=== PATIENT | female | born 1955 | race Caucasian/White ===

== ENCOUNTER 2017-12-18 01:20 | Inpatient (IN) | payer MEDICARE, SELFPAY ==
[2017-12-18] VITALS (30 sets, daily range): BP systolic 87–175; BP diastolic 13–103; PULSE 54–98; RESP 13–18; TEMP 35.8–36.8; O2SAT 18–97; BMI 32.1; BMI 30.6
--- NOTE | 2017-12-18 01:37 | RAD_ITS ---
STUDY: X-RAY CHEST REASON FOR EXAM: Female, 62 years old. Chest pain and tingling in both arms and back. TECHNIQUE: Single AP portable view of the chest. COMPARISON: 06/17/2017. FINDINGS: The lungs are clear and expanded. There is no demonstrated pleural abnormality. The patient is markedly rotated. Normal size heart. Normal mediastinum and dru. Normal visualized pulmonary arteries. There is atherosclerotic tortuosity of the aortic arch and descending thoracic aorta. The bony structures are unchanged. There is no demonstrated abnormality of the visualized soft tissue structures of the upper abdomen. RAD/Chest 1 View (Portable) IMPRESSION: No active pulmonary disease. Electronically Signed: Raghavendra Agustin MD at 2:31 EDT Tel , Service support ,
--- NOTE | 2017-12-18 01:37 | EKG12_ITS ---
Test Reason : CP Blood Pressure : / mmHG Vent. Rate : 087 BPM Atrial Rate : 087 BPM P-R Int : 140 ms QRS Dur : 102 ms QT Int : 368 ms P-R-T Axes : 054 034 063 degrees QTc Int : 442 ms Sinus rhythm with occasional Premature ventricular complexes T wave abnormality, consider anterior ischemia Abnormal ECG Confirmed by CECI MARTINEZ, GEO ([id number]), editor farm journal LOPEZ VERA ([id number]) on 12/22/2017 2:24:35 PM Referred By: JOLENE Confirmed By:GEO ONRELAS MD
[2017-12-18 01:52] LABS: Absolute Lymphocyte Count 3.15 X10^3/ul (0.83-4.51); Absolute Neutrophil Count 4.1 X10^3/uL (2.0-7.7); Basophil# 0.04 X10^3/uL; Basophil% 0.5 % (0-1); Eosinophils% 2.5 % (0-5); Hematocrit 38.5 % (37-47); Hemoglobin 13.2 g/dl (12.0-15.0); Lymphocyte # 3.15 X10^3/ul (4.0); Lymphocyte % 39.1 % (19-41); Mean Corp Hgb Conc 34.3 g/gl (32-36); Mean Corpuscular Hgb 32.4 pg (27.0-32.0); Mean Corpuscular Volume 94.6 fL (81-99); Mean Platelet Vol. 8.9 fl (6.2-12.0); Monocyte# 0.56 X10^3/uL; Monocyte% 6.9 % (0-10); Neutrophil % 50.9 % (47-70); POSITIVE COUNT NO; POSITIVE DIFFERENTIAL NO; POSITIVE MORPHOLOGY NO; Platelet Count 229 K/mm3 (150-450); RBC Distribution Width CV 12.9 % (11.6-14.6); RBC Distribution Width SD 43.3 fl (35.1-43.9); Red Blood Count 4.07 M/mm3 (4.2-5.4); White Blood Count 8.1 K/mm3 (4.4-11.0)
--- NOTE | 2017-12-18 02:05 | ED.DCSUM_ITS ---
- ER Visit Summary Date of Service: 12/18/17 Chief Complaint: Chest pain History of Present Illness: The patient is a 62 F sudden chest and upper back pain 1 hour prior to arrival. Patient states she was awake. Pain down both arms. Nausea while in EMS. Status post aspirin nitroglycerin at home ?1 additional given by EMS. Denies any improvement from it. Pain is 7 8 out of 10 with which he states pulling sensation.. States had a heart cath a couple years ago with no intervention. Followed by Dr. Best. States the arm pains are new. Tobacco history. Mother had PR at age 36. Denies diabetes. History of hypertension hypercholesterolemia. No PE risk factors. Denies any dyspnea or diaphoresis. Physical Examination: General: Alert and oriented ?3, no acute distress HEENT: Normocephalic, atraumatic. Moist mucosa membranes Neck: supple, nontender. Cardiovascular: Regular rate and rhythm, no murmurs Respiratory: Normal breath sounds, symmetric, no distress Abdomen: Soft, nontender, nondistended Extremities: Nontender, no edema, pulses intact ?4 Neuro: no focal neurological deficits. Test Results: EKG normal sinus rate of 87, no ST changes T-wave inversions anterior leads of V1 to V3. Chest x-ray negative. Troponin negative. Emergency Department Course and Treatment: Patient treated with additional nitro , states symptoms are improving. Nitro paste and morphine given for symptom control with improvement. Cardiac workup negative. EKG notes chronic changes with T-wave inversions on her previous EKGs. Heart scores a 5. CELESTE scores of 3. I did review records noted she had a heart cath November 2015, had a mild disease of the diagonal branch. She had abnormal nuclear stress test that led to this. Discussed with hospitalist, Dr. Mcginnis for admission for cardiac rule out. Treatment Plan: [] Disposition: Admission Impression: Acute chest pain This note was generated with [employer]amis[employer] dictation software. It may contain incorrect words, spelling, and punctuation that were not noted in review of the chart prior to signing ED Disposition - Plan for ED Patient: Disposition: Acute Care Hospital [facility] Chief Complaint: Chest Pain Diagnosis: Acute chest pain
[2017-12-18 02:09] LABS: Anion Gap 4 (5-15); BUN 16 mg/dL (7-18); Calcium,Total 8.6 mg/dL (8.5-10.1); Chloride 110 mmol/L (98-107); Creatinine, Serum 0.76 mg/dL (0.55-1.02); EST Glomerular Filtration Rate 82 mL/min (>60); Est Glom Filt Rate - Afr Amer 99 mL/min (>60); Estimated Creatinine Clearance 69.95 ml/min; Glucose 122 mg/dL (74-106); Potassium 3.4 mmol/L (3.5-5.1); Sodium Level 144 mmol/L (136-145)
[2017-12-18] MEDS: Nitroglycerin Oint 1 INCH PACKET TRANSDERM. (02:33)
[2017-12-18] MEDS: Morphine 4 MG/ML Syringe IV (02:36)
--- NOTE | 2017-12-18 03:15 | PCM.HP.STD ---
Problem List (1) Cardiomyopathy Status: Chronic Qualifiers: Cardiomyopathy type: unspecified Qualified Code(s): I42.9 - Cardiomyopathy, unspecified (2) Hyperlipidemia Status: Acute Qualifiers: Hyperlipidemia type: unspecified Qualified Code(s): E78.5 - Hyperlipidemia, unspecified (3) Atherosclerotic heart disease of [place] coronary artery without angina pectoris Status: Chronic Qualifiers: [place] vs. transplanted heart: unspecified whether [place] or transplanted heart Qualified Code(s): I25.10 - Atherosclerotic heart disease of [place] coronary artery without angina pectoris Comment: Mild (4) Hypertension Status: Chronic Qualifiers: Hypertension type: essential hypertension Qualified Code(s): I10 - Essential (primary) hypertension (5) COPD (chronic obstructive pulmonary disease) Status: Acute Qualifiers: COPD type: unspecified COPD Qualified Code(s): J44.9 - Chronic obstructive pulmonary disease, unspecified (6) Tobacco use Status: Chronic (7) EVELYN (obstructive sleep apnea) Status: Chronic (8) Obesity (BMI 30.0-34.9) Status: Chronic (9) TIA (transient ischemic attack) Status: Chronic Qualifiers: Transient cerebral ischemia type: unspecified Qualified Code(s): G45.9 - Transient cerebral ischemic attack, unspecified (10) GERD (gastroesophageal reflux disease) Status: Acute Qualifiers: Esophagitis presence: esophagitis presence not specified Qualified Code(s): K21.9 - Gastro-esophageal reflux disease without esophagitis (11) Anxiety and depression Status: Chronic (12) Chest pain Status: Acute Qualifiers: Chest pain type: unspecified Qualified Code(s): R07.9 - Chest pain, unspecified History of Present Illness Date of Admission: 12/18/17 Chief Complaint: Chest pain The patient is a 62 y/o M w/ PMHx: Obesity, Tobacco use, HTN, HLD, GERD, Chronic COPD, Cardiomyopathy Unclear Type, CAD, Hx TIA, EVELYN, Anxiety and Depression, GERD, Chronic back pain who presents to the [facility] ED on 12/18/17 with onset of left upper back pain which then radiated toward her midsternal chest region and into BL UE as well as her neck, noting her arms felt heavy with associated nausea without emesis, no diaphoresis, dyspnea or emesis concurrently. In the ED work-up included AF, HR 70-80, BP 175/13-->138/103, 97% on 2L NC, unremarkable CBC, BMP w/ K 3.4, Chl 110, glucose 122, trop < 0.02, EKG w/ chronic T wave changes, similar to prior, CXR with chronic changes. In the ED patient administered ASA. NG SL, nitrobid, morphine with improvement of her chest discomfort. Past Medical History Past Medical History (Chronic Problems): Chronic Problems (Last Updated 11/16/17 @ 11:07 by Delilah Benavides) Tobacco use (Chronic) EVELYN (obstructive sleep apnea) (Chronic) Obesity (BMI 30.0-34.9) (Chronic) TIA (transient ischemic attack) (Chronic) Anxiety and depression (Chronic) Cardiomyopathy (Chronic) Atherosclerotic heart disease of [place] coronary artery without angina pectoris (Chronic) Mild Hypertension (Chronic) Allergies No Known Allergies Allergy (Verified 12/18/17 01:21) Home Medications: Ambulatory Orders Medication Instructions Recorded Lisinopril [Zestril] 10 mg PO BID 11/18/15 Aspirin [Aspirin, Baby] 81 mg PO DAILY@0800 #30 tab.chew 11/19/15 Venlafaxine XR [Effexor Xr] 150 mg PO DAILY 01/31/16 Atorvastatin Calcium [Lipitor] 10 mg PO QHS 10/03/16 Esomeprazole Mag Trihydrate 40 mg PO DAILY 10/03/16 [Nexium] Oxycodone HCl/Acetaminophen 1 tab PO BID PRN 10/03/16 [Percocet 5/325] Ondansetron HCl [Zofran] 4 mg PO 4X/DAY PRN PRN #14 tab 06/17/17 carvedilol 6.25 mg tablet 6.25 mg PO BID 11/16/17 lorazepam 1 mg tablet 1 mg PO BID tab 11/16/17 venlafaxine 37.5 mg tablet 37.5 mg PO QDAY tab 11/16/17 Morphine Sulfate/Naltrexone 1 cap PO DAILY 12/18/17 [Embeda ER 60-2.4 mg Capsule] Surgical History: appendectomy, hysterectomy Psychiatric History: Anxiety, Depression 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 Tobacco Use: Cigarettes Alcohol: None Drugs: None - *Family History Maternal History Items: Heart Disease Paternal History Items: No pertinent history Review of Systems Constitutional: Reports: Fatigue. Denies: Chills, Fever, Weight Change HEENT: Denies: Head Aches, Sinus Congestion, Sinus Drainage Cardiovascular: Reports: Chest Pain, Chest Pressure, Heaviness. Denies: Palpitations Respiratory: Denies: Cough, Shortness of breath at rest, Sputum production Gastrointestinal: Denies: Abdominal Pain, Nausea, Vomiting Genitourinary: Denies: Dysuria Musculoskeletal: Reports: Arm Pain, Back Pain. Denies: Joint Pain, Joint Tenderness Skin: Denies: Rash, Wounds Neurological: Denies: Numbness, Tingling, Focal weakness Psychiatric: Reports: Anxiety, Depression. Denies: Homicidal Ideations, Suicidal Ideations Hematologic/ Lymphatic: Denies: Easy Bruising, Easy Bleeding VTE Information - Inpt Only VTE Present on Admission: No VTE Mechan Device Prophylaxis: SCD's VTE Pharm Prophylaxis ordered?: Yes Patient Problems: Active and Suspected Problems (Last Updated 11/16/17 @ 11:07 by Delilah Benavides) COPD (chronic obstructive pulmonary disease) (Acute) GERD (gastroesophageal reflux disease) (Acute) Chest pain (Acute) Subjective: Seated upright in the ED bed, NAD, notes chest discomfort has improved since initial presentation. Objective: Physical Examination: General: awake, alert, oriented x 3 and cooperative, seated upright in the ED bed in no apparent distress. Skin: normal color, turgor, no icterus, cyanosis. HEENT: AT/NC, EOMI, PERRLA, mildly dry MM, no carotid bruits or JVD noted. Lungs: Diminished BS, > bases, mild effort, occasional end expiratory wheeze noted. Heart: Regular rate and rhythm; no gallop, rub audible. Abdomen: soft, obese, NTTP, ND, normal BS, no HSM. Extremities: no cyanosis, clubbing, or edema. Neurological: patient awake, alert, oriented x 3; cognitive function intact; pupils equally reactive to light and accomodation; cranial nerves II-XII grossly normal, moving all 4 extremities, no focal deficits, strength moderately globally decreased secondary to acute presentation. Psychiatric: affect appears fatigued, no acute evidence of depressive or anxiety feelings. - Physical Exam Vital Signs Temp Pulse Resp BP Pulse Ox 96.4 F L 71 16 138/103 H 94 12/18/17 01:21 12/18/17 03:03 12/18/17 03:03 12/18/17 03:03 12/18/17 03:03 Oxygen Flow Rate (L/min) 2 Oxygen Delivery Method Room Air Weight: 193 lb 1.999 oz Body Mass Index (BMI) 32.1 Finger Stick Blood Glucose 76 Laboratory Tests Past 24 Hrs 12/18/17 12/18/17 01:46 01:46 WBC 8.1 RBC 4.07 L Hgb 13.2 Hct 38.5 MCV 94.6 MCH 32.4 H MCHC 34.3 RDW 12.9 RDW Differential 43.3 Plt Count 229 MPV 8.9 Immature Gran % (Auto) 0.100 Neut % (Auto) 50.9 Lymph % (Auto) 39.1 [place] % (Auto) 6.9 Eos % (Auto) 2.5 Baso % (Auto) 0.5 Absolute Neuts (auto) 4.1 Absolute Lymphs (auto) 3.15 Total Counted Not Reportable Sodium 144 Potassium 3.4 L Chloride 110 H Carbon Dioxide 30.0 Anion Gap 4 L BUN 16 Creatinine 0.76 Estim Creat Clear Calc 69.95 Est GFR (MDRD) Af Amer 99 Est GFR (MDRD) Non-Af 82 BUN/Creatinine Ratio 21.0 H Glucose 122 H Calcium 8.6 Troponin I < 0.02 Assessment/Plan Active and Suspected Problems (Last Updated 11/16/17 @ 11:07 by Delilah Benavides) COPD (chronic obstructive pulmonary disease) (Acute) GERD (gastroesophageal reflux disease) (Acute) Chest pain (Acute) The patient is a 62 y/o M w/ PMHx: Obesity, Tobacco use, HTN, HLD, GERD, Chronic COPD, Cardiomyopathy Unclear Type, CAD, Hx TIA, EVELYN, Anxiety and Depression, GERD, Chronic back pain who presents to the [facility] ED on 12/18/17 with onset of left upper back pain which then radiated toward her midsternal chest region and into BL UE as well as her neck, noting her arms felt heavy with associated nausea without emesis, no diaphoresis, dyspnea or emesis concurrently. (1) Chest Pain: EKG in ED w/ chronic T wave changes similar to prior, CXR w/ no acute findings, initial trop normal. Will admit to PCU, place on a monitored bed to assure no acute myocardial infarction with serial cardiac enzymes and EKGs. If enzymes remain unremarkable will proceed with AM Nuclear stress testing. FLP in AM. Mag pending. ASA, NG, morphine. 2016 cardiac catheterization with normal L main coronary artery, LAD artery with no high-grade stenosis, mild diagonal disease, circumflex artery with no significant stenosis, dominant R coronary artery with mild disease, preserved ejection fraction with apical akinetic zone with medical management at that time. (2) Hypertension: Continue home regimen including Coreg, lisinopril, PRN hydralazine. (3) Hyperlipidemia: Continue home statin regimen. AM FLP. (4) Chronic COPD: ATC duonebs, PRN albuterol, HOB, IS parameters. (5) CAD: Will continue home regimen asa, statin, BB. (6) Obesity: Weight loss and lifestyle changes encouraged. (7) Anxiety and Depression: Maintain on home regimen effexor and ativan. (8) Chronic Pain Syndrome, Chronic Back Pain: Fall precautions, position changes, continue home embeda regimen or equivalent. (9) EVELYN: Denies use of home CPAP or BIPAP. (10) GERD: Famotidine. (11) Tobacco Abuse: Encouraged cessation, inpatient consultation per RT, NR if desired. (12) Reported Hx Cardiomyopathy, Unclear Type: Noted in her history, 01/19/17 ECHO w/ segmental dysfunction, EF 55%, mild concentric LVH, mildly enlarged LA, mild MV thickening, mild MV insufficiency, mild TV insufficiency, mild focal AV calcification, RVSP 27 mmHg, transmitral Doppler flow suggestive of impaired relaxation LV. (13) DVT Prophylaxis: SCDs, lovenox. Code Visit OBSV E&M: 69231 Initial observation care L3
--- NOTE | 2017-12-18 03:27 | HP.PCM_ITS ---
Problem List (1) Cardiomyopathy Status: Chronic Qualifiers: Cardiomyopathy type: unspecified Qualified Code(s): I42.9 - Cardiomyopathy , unspecified (2) Hyperlipidemia Status: Acute Qualifiers: Hyperlipidemia type: unspecified Qualified Code(s): E78.5 - Hyperlipidemia , unspecified (3) Atherosclerotic heart disease of [place] coronary artery without angina pectoris Status: Chronic Qualifiers: [place] vs. transplanted heart: unspecified whether [place] or transplanted heart Qualified Code(s): I25.10 - Atherosclerotic heart disease of [place] coronary artery without angina pectoris Comment: Mild (4) Hypertension Status: Chronic Qualifiers: Hypertension type: essential hypertension Qualified Code(s): I10 - Essential (primary) hypertension (5) COPD (chronic obstructive pulmonary disease) Status: Acute Qualifiers: COPD type: unspecified COPD Qualified Code(s): J44.9 - Chronic obstructive pulmonary disease, unspecified (6) Tobacco use Status: Chronic (7) EVELYN (obstructive sleep apnea) Status: Chronic (8) Obesity (BMI 30.0-34.9) Status: Chronic (9) TIA (transient ischemic attack) Status: Chronic Qualifiers: Transient cerebral ischemia type: unspecified Qualified Code(s): G45.9 - Transient cerebral ischemic attack, unspecified (10) GERD (gastroesophageal reflux disease) Status: Acute Qualifiers: Esophagitis presence: esophagitis presence not specified Qualified Code(s) : K21.9 - Gastro-esophageal reflux disease without esophagitis (11) Anxiety and depression Status: Chronic (12) Chest pain Status: Acute Qualifiers: Chest pain type: unspecified Qualified Code(s): R07.9 - Chest pain, unspecified History of Present Illness Date of Admission: 12/18/17 Chief Complaint: Chest pain The patient is a 62 y/o M w/ PMHx: Obesity, Tobacco use, HTN, HLD, GERD, Chronic COPD, Cardiomyopathy Unclear Type, CAD, Hx TIA, EVELYN, Anxiety and Depression, GERD, Chronic back pain who presents to the [facility] ED on 12/18/17 with onset of left upper back pain which then radiated toward her midsternal chest region and into BL UE as well as her neck, noting her arms felt heavy with associated nausea without emesis, no diaphoresis, dyspnea or emesis concurrently. In the ED work-up included AF, HR 70-80, BP 175/13-->138/103, 97% on 2L NC, unremarkable CBC, BMP w/ K 3.4, Chl 110, glucose 122, trop < 0.02, EKG w/ chronic T wave changes, similar to prior, CXR with chronic changes. In the ED patient administered ASA. NG SL, nitrobid, morphine with improvement of her chest discomfort. Past Medical History Past Medical History (Chronic Problems): Chronic Problems (Last Updated 11/16/17 @ 11:07 by Delilah Benavides) Tobacco use (Chronic) EVELYN (obstructive sleep apnea) (Chronic) Obesity (BMI 30.0-34.9) (Chronic) TIA (transient ischemic attack) (Chronic) Anxiety and depression (Chronic) Cardiomyopathy (Chronic) Atherosclerotic heart disease of [place] coronary artery without angina pectoris (Chronic) Mild Hypertension (Chronic) Allergies No Known Allergies Allergy (Verified 12/18/17 01:21) Home Medications: Ambulatory Orders Medication Instructions Recorded Lisinopril [Zestril] 10 mg PO BID 11/18/15 Aspirin [Aspirin, Baby] 81 mg PO DAILY@0800 #30 tab.chew 11/19/15 Venlafaxine XR [Effexor Xr] 150 mg PO DAILY 01/31/16 Atorvastatin Calcium [Lipitor] 10 mg PO QHS 10/03/16 Esomeprazole Mag Trihydrate 40 mg PO DAILY 10/03/16 [Nexium] Oxycodone HCl/Acetaminophen 1 tab PO BID PRN 10/03/16 [Percocet 5/325] Ondansetron HCl [Zofran] 4 mg PO 4X/DAY PRN PRN #14 tab 06/17/17 carvedilol 6.25 mg tablet 6.25 mg PO BID 11/16/17 lorazepam 1 mg tablet 1 mg PO BID tab 11/16/17 venlafaxine 37.5 mg tablet 37.5 mg PO QDAY tab 11/16/17 Morphine Sulfate/Naltrexone 1 cap PO DAILY 12/18/17 [Embeda ER 60-2.4 mg Capsule] Surgical History: appendectomy, hysterectomy Psychiatric History: Anxiety, Depression 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 Tobacco Use: Cigarettes Alcohol: None Drugs: None - *Family History Maternal History Items: Heart Disease Paternal History Items: No pertinent history Review of Systems Constitutional: Reports: Fatigue. Denies: Chills, Fever, Weight Change HEENT: Denies: Head Aches, Sinus Congestion, Sinus Drainage Cardiovascular: Reports: Chest Pain, Chest Pressure, Heaviness. Denies: Palpitations Respiratory: Denies: Cough, Shortness of breath at rest, Sputum production Gastrointestinal: Denies: Abdominal Pain, Nausea, Vomiting Genitourinary: Denies: Dysuria Musculoskeletal: Reports: Arm Pain, Back Pain. Denies: Joint Pain, Joint Tenderness Skin: Denies: Rash, Wounds Neurological: Denies: Numbness, Tingling, Focal weakness Psychiatric: Reports: Anxiety, Depression. Denies: Homicidal Ideations, Suicidal Ideations Hematologic/ Lymphatic: Denies: Easy Bruising, Easy Bleeding VTE Information - Inpt Only VTE Present on Admission: No VTE Mechan Device Prophylaxis: SCD's VTE Pharm Prophylaxis ordered?: Yes Patient Problems: Active and Suspected Problems (Last Updated 11/16/17 @ 11:07 by Delilah Benavides ) COPD (chronic obstructive pulmonary disease) (Acute) GERD (gastroesophageal reflux disease) (Acute) Chest pain (Acute) Subjective: Seated upright in the ED bed, NAD, notes chest discomfort has improved since initial presentation. Objective: Physical Examination: General: awake, alert, oriented x 3 and cooperative, seated upright in the ED bed in no apparent distress. Skin: normal color, turgor, no icterus, cyanosis. HEENT: AT/NC, EOMI, PERRLA, mildly dry MM, no carotid bruits or JVD noted. Lungs: Diminished BS, > bases, mild effort, occasional end expiratory wheeze noted. Heart: Regular rate and rhythm; no gallop, rub audible. Abdomen: soft, obese, NTTP, ND, normal BS, no HSM. Extremities: no cyanosis, clubbing, or edema. Neurological: patient awake, alert, oriented x 3; cognitive function intact; pupils equally reactive to light and accomodation; cranial nerves II-XII grossly normal, moving all 4 extremities, no focal deficits, strength moderately globally decreased secondary to acute presentation. Psychiatric: affect appears fatigued, no acute evidence of depressive or anxiety feelings. - Physical Exam Vital Signs Temp Pulse Resp BP Pulse Ox 96.4 F L 71 16 138/103 H 94 12/18/17 01:21 12/18/17 03:03 12/18/17 03:03 12/18/17 03:03 12/18/17 03:03 Oxygen Flow Rate (L/min) 2 Oxygen Delivery Method Room Air Weight: 193 lb 1.999 oz Body Mass Index (BMI) 32.1 Finger Stick Blood Glucose 76 Laboratory Tests Past 24 Hrs 12/18/17 12/18/17 01:46 01:46 WBC 8.1 RBC 4.07 L Hgb 13.2 Hct 38.5 MCV 94.6 MCH 32.4 H MCHC 34.3 RDW 12.9 RDW Differential 43.3 Plt Count 229 MPV 8.9 Immature Gran % (Auto) 0.100 Neut % (Auto) 50.9 Lymph % (Auto) 39.1 [place] % (Auto) 6.9 Eos % (Auto) 2.5 Baso % (Auto) 0.5 Absolute Neuts (auto) 4.1 Absolute Lymphs (auto) 3.15 Total Counted Not Reportable Sodium 144 Potassium 3.4 L Chloride 110 H Carbon Dioxide 30.0 Anion Gap 4 L BUN 16 Creatinine 0.76 Estim Creat Clear Calc 69.95 Est GFR (MDRD) Af Amer 99 Est GFR (MDRD) Non-Af 82 BUN/Creatinine Ratio 21.0 H Glucose 122 H Calcium 8.6 Troponin I < 0.02 Assessment/Plan Active and Suspected Problems (Last Updated 11/16/17 @ 11:07 by Delilah Benavides ) COPD (chronic obstructive pulmonary disease) (Acute) GERD (gastroesophageal reflux disease) (Acute) Chest pain (Acute) The patient is a 62 y/o M w/ PMHx: Obesity, Tobacco use, HTN, HLD, GERD, Chronic COPD, Cardiomyopathy Unclear Type, CAD, Hx TIA, EVELYN, Anxiety and Depression, GERD, Chronic back pain who presents to the [facility] ED on 12/18/17 with onset of left upper back pain which then radiated toward her midsternal chest region and into BL UE as well as her neck, noting her arms felt heavy with associated nausea without emesis, no diaphoresis, dyspnea or emesis concurrently. (1) Chest Pain: EKG in ED w/ chronic T wave changes similar to prior, CXR w/ no acute findings, initial trop normal. Will admit to PCU, place on a monitored bed to assure no acute myocardial infarction with serial cardiac enzymes and EKGs. If enzymes remain unremarkable will proceed with AM Nuclear stress testing. FLP in AM. Mag pending. ASA, NG, morphine. 2016 cardiac catheterization with normal L main coronary artery, LAD artery with no high- grade stenosis, mild diagonal disease, circumflex artery with no significant stenosis, dominant R coronary artery with mild disease, preserved ejection fraction with apical akinetic zone with medical management at that time. (2) Hypertension: Continue home regimen including Coreg, lisinopril, PRN hydralazine. (3) Hyperlipidemia: Continue home statin regimen. AM FLP. (4) Chronic COPD: ATC duonebs, PRN albuterol, HOB, IS parameters. (5) CAD: Will continue home regimen asa, statin, BB. (6) Obesity: Weight loss and lifestyle changes encouraged. (7) Anxiety and Depression: Maintain on home regimen effexor and ativan. (8) Chronic Pain Syndrome, Chronic Back Pain: Fall precautions, position changes , continue home embeda regimen or equivalent. (9) EVELYN: Denies use of home CPAP or BIPAP. (10) GERD: Famotidine. (11) Tobacco Abuse: Encouraged cessation, inpatient consultation per RT, NR if desired. (12) Reported Hx Cardiomyopathy, Unclear Type: Noted in her history, 01/19/17 ECHO w/ segmental dysfunction, EF 55%, mild concentric LVH, mildly enlarged LA, mild MV thickening, mild MV insufficiency, mild TV insufficiency, mild focal AV calcification, RVSP 27 mmHg, transmitral Doppler flow suggestive of impaired relaxation LV. (13) DVT Prophylaxis: SCDs, lovenox. Code Visit OBSV E&M: [id number] Initial observation care L3
[2017-12-18] MEDS: 0.9% Normal Saline 1,000 ML 100 ML IV ×2 (04:23→12:27)
[2017-12-18] MEDS: oxyCODONE 5 MG Tablet PO ×2 (04:50→20:19)
[2017-12-18 05:34] LABS: Hematocrit 36.9 % (37-47); Hemoglobin 12.3 g/dl (12.0-15.0); Mean Corp Hgb Conc 33.3 g/gl (32-36); Mean Corpuscular Hgb 31.9 pg (27.0-32.0); Mean Corpuscular Volume 95.6 fL (81-99); Platelet Count 220 K/mm3 (150-450); RBC Distribution Width SD 43.8 fl (35.1-43.9); Red Blood Count 3.86 M/mm3 (4.2-5.4); White Blood Count 7.4 K/mm3 (4.4-11.0)
[2017-12-18 05:35] LABS: Scan Indicated on CBC? Y/N NO
--- NOTE | 2017-12-18 05:55 | EKG12_ITS ---
Test Reason : AM EKG Blood Pressure : / mmHG Vent. Rate : 060 BPM Atrial Rate : 060 BPM P-R Int : 132 ms QRS Dur : 108 ms QT Int : 426 ms P-R-T Axes : 048 039 057 degrees QTc Int : 426 ms Normal sinus rhythm Septal infarct (cited on or before 17-SEP-2015) T wave abnormality, consider anterior ischemia Abnormal ECG When compared with ECG of 17-JUN-2017 20:26, Vent. rate has decreased BY 32 BPM Questionable change in initial forces of Septal leads Reconfirmed by CECI MARTINEZ, GEO ([id number]), movie editor LOPEZ VERA ([id number]) on 12/22/2017 3:30:38 PM Referred By: DR WILSON Confirmed By:GEO ORNELAS MD
[2017-12-18 06:02] LABS: Anion Gap 6 (5-15); BUN 17 mg/dL (7-18); BUN/Creat Ratio 26.7 RATIO (10-20); Calcium,Total 8.5 mg/dL (8.5-10.1); Chloride 110 mmol/L (98-107); Cholesterol 189 mg/dL (200); Creatinine, Serum 0.64 mg/dL (0.55-1.02); EST Glomerular Filtration Rate 101 mL/min (>60); Est Glom Filt Rate - Afr Amer 122 mL/min (>60); Estimated Creatinine Clearance 83.06 ml/min; Glucose 112 mg/dL (74-106); High Density Lipoprotein 26 mg/dL; Magnesium 2.1 mg/dL (1.6-2.6); Potassium 3.7 mmol/L (3.5-5.1); Sodium Level 145 mmol/L (136-145); Triglycerides 350 mg/dL; Very Low Density Lipoprotein 70 mg/dL (5-40)
[2017-12-18] MEDS: Aspirin 81 MG TAB.CHEW PO (06:19)
[2017-12-18] MEDS: Lisinopril 10 MG Tablet PO (06:19)
[2017-12-18 06:54] LABS: Prothrombin Time (Protime)PT. 13.4 SECONDS (11.7-14.9)
[2017-12-18 06:55] LABS: Partial Thromboplast Time 29.8 Seconds (24.1-36.2)
[2017-12-18] MEDS: Heparin Injection 5,000 UNITS/ML Syringe 6000 UNITS IV (07:13)
[2017-12-18] MEDS: HEPARIN/D5w 25,000 UNITS 25,000 UNITS/250 ML IV.SOLN. 12 UNITS IV (07:16)
[2017-12-18] MEDS: Morphine 2 MG/ML Syringe IV ×2 (07:55→14:06)
[2017-12-18] MEDS: 0.9% NaCl Peripheral Flush Adult/Peds IV (07:55)
[2017-12-18] MEDS: LORazepam 1 MG Tablet PO ×2 (09:50→21:46)
[2017-12-18] MEDS: Carvedilol 6.25 MG Tablet PO (09:51)
[2017-12-18] MEDS: Venlafaxine XR 37.5 MG Capsule PO (09:51)
[2017-12-18] MEDS: Venlafaxine XR 150 MG Capsule PO (09:51)
[2017-12-18] MEDS: Famotidine 20 MG Tablet PO ×2 (09:58→21:46)
--- NOTE | 2017-12-18 10:23 | PCM.CONS.C ---
Problem List (1) NSTEMI (non-ST elevated myocardial infarction) Status: Acute Reason for Consult Date of Consultation: 12/18/17 History of Present Illness: The patient is a 62 year old F with past medical history significant for coronary artery disease, hypertension and nicotine dependence. She presented to the emergency room yesterday with complaints of acute onset chest pain which radiated to her back. Also had radiation into bilateral upper extremities. Denied any associated shortness of breath. Question of diaphoresis. According to the patient, the pain was resolved when she was given nitroglycerin in the emergency room. According to her, she has not had pain like this before. The patient does complain of some nonspecific chest discomfort when she walks her dog. [] Past Medical History Allergies/Adverse Reactions: Allergies No Known Allergies Allergy (Verified 12/18/17 01:21) Home Medications: Ambulatory Orders Medication Instructions Recorded Lisinopril [Zestril] 10 mg PO BID 11/18/15 Aspirin [Aspirin, Baby] 81 mg PO DAILY@0800 #30 tab.chew 11/19/15 Venlafaxine XR [Effexor Xr] 150 mg PO DAILY 01/31/16 Atorvastatin Calcium [Lipitor] 10 mg PO QHS 10/03/16 Esomeprazole Mag Trihydrate 40 mg PO DAILY 10/03/16 [Nexium] Oxycodone HCl/Acetaminophen 1 tab PO BID PRN 10/03/16 [Percocet 5/325] Ondansetron HCl [Zofran] 4 mg PO 4X/DAY PRN PRN #14 tab 06/17/17 carvedilol 6.25 mg tablet 6.25 mg PO BID 11/16/17 lorazepam 1 mg tablet 1 mg PO BID tab 11/16/17 venlafaxine 37.5 mg tablet 37.5 mg PO QDAY tab 11/16/17 Morphine Sulfate/Naltrexone 1 cap PO DAILY 12/18/17 [Embeda ER 60-2.4 mg Capsule] Past Medical History (Chronic Problems): Chronic Problems (Last Updated 11/16/17 @ 11:07 by Delilah Benavides) Tobacco use (Chronic) EVELYN (obstructive sleep apnea) (Chronic) Obesity (BMI 30.0-34.9) (Chronic) TIA (transient ischemic attack) (Chronic) Anxiety and depression (Chronic) Cardiomyopathy (Chronic) Atherosclerotic heart disease of [place] coronary artery without angina pectoris (Chronic) Mild Hypertension (Chronic) Surgical History: appendectomy, hysterectomy Psychiatric History: Anxiety, Depression 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 - *Family History Maternal Family History: Family History (Last Updated 11/16/17 @ 11:08 by Delilah Benavides) Mother Hypertension CAD (coronary artery disease) CVA (cerebral vascular accident) Myocardial infarction Grandmother Myocardial infarction History Items: Heart Disease Paternal Family History: Family History (Last Updated 11/16/17 @ 11:08 by Delilah Benavides) Mother Hypertension CAD (coronary artery disease) CVA (cerebral vascular accident) Myocardial infarction Grandmother Myocardial infarction History Items: No pertinent history Lives: Alone Smoking Status: Current every day smoker Tobacco Use: Cigarettes Alcohol: None Drugs: None Review of Systems - Review of Systems General: Denies: Fever, Malaise, Chills HEENT: Denies: Head Aches Cardiovascular: Reports: Chest Discomfort, Chest Discomfort at Rest, Chest Discomfort with Exertion, Shortness of Breath with Exertion Respiratory: Denies: Cough, Hemoptysis Gastrointestinal: Reports: - - Patient has history of Sanchez's esophagus according to her. Denies: Heart Burn, Abdominal Discomfort, Jaundice, Nausea, Hematemesis, Melena Muscoloskeletal: Denies: Myalgias Neurological: Reports: History of TIA, History of CVA Endocrine: Denies: Heat Intolerance, Cold Intolerance Hematologic/ Lymphatic: Denies: Anemia, Easy Brusing, Easy Bleeding Subjectve: Comfortable. No apparent distress. Lying flat in the bed Objective: Vital Signs Temp Pulse Resp BP Pulse Ox 97.9 F 61 14 123/71 H 94 12/18/17 09:49 12/18/17 09:49 12/18/17 09:49 12/18/17 09:49 12/18/17 09:49 Oxygen Delivery Method Room Air Weight: 83.4 kg Body Mass Index (BMI) 30.6 Intake and Output for Last 24 Hours 12/16/17 12/17/17 12/18/17 23:59 23:59 23:59 Intake Total 292 / 292 Balance 292 / 292 General: Healthy Appearing, Awake, Alert, Oriented x 3, No Acute Distress HEENT: Atraumatic, Normocephalic Oral: Moist Mucosa Neck: Supple, No JVD Lungs: Clear to auscultation Cardiovascular: Regular Rhythm, Normal S1, Normal S2 Vascular: No Carotid Bruits Abdomen: Bowel Sounds Present, Soft, Non Tender Extremities: No Cyanosis, No edema Neurological: No Focal Motor or Sensory Deficit Psych/Mental Status: Appropriate 12/18/17 05:20: Sodium 145, Potassium 3.7, Chloride 110 H, Carbon Dioxide 29.0, Anion Gap 6, BUN 17, Creatinine 0.64, Est GFR (MDRD) Af Amer 122, Est GFR (MDRD) Non-Af 101, BUN/Creatinine Ratio 26.7 H, Glucose 112 H, Calcium 8.5, Magnesium 2.1, Triglycerides 350 H, Cholesterol 189, LDL Cholesterol 93, VLDL Cholesterol 70 H, HDL Cholesterol 26 L 12/18/17 05:20: WBC 7.4, RBC 3.86 L, Hgb 12.3, Hct 36.9 L, MCV 95.6, MCH 31.9, MCHC 33.3, RDW 13.0, RDW Differential 43.8, Plt Count 220, MPV 9.0 12/18/17 05:20: Troponin I 5.24 H* 12/18/17 05:20: PT 13.4, INR 1.0, APTT 29.8 12/18/17 09:30: Troponin I 9.26 H* Rhythm: Normal sinus EKG: Normal sinus rhythm. T-wave inversion in precordial leads consistent with anterior ischemia : Assessment/Plan 1. Non-ST elevation myocardial infarction. Patient was offered cardiac catheterization with coronary angiography and possible revascularization. Risks benefits and alternatives explained. She understands these and wishes to proceed 2. Continue aspirin. Continue carvedilol 3. Dyslipidemia. Manage as per internal medicine 4. Nicotine dependence. Counseled to quit 5. History of CVA without any residual defect 6. History of Sanchez's esophagus. No history of melena or hematemesis
--- NOTE | 2017-12-18 10:30 | CON.PCM_ITS ---
Problem List (1) NSTEMI (non-ST elevated myocardial infarction) Status: Acute Reason for Consult Date of Consultation: 12/18/17 History of Present Illness: The patient is a 62 year old F with past medical history significant for coronary artery disease, hypertension and nicotine dependence. She presented to the emergency room yesterday with complaints of acute onset chest pain which radiated to her back. Also had radiation into bilateral upper extremities. Denied any associated shortness of breath. Question of diaphoresis. According to the patient, the pain was resolved when she was given nitroglycerin in the emergency room. According to her, she has not had pain like this before. The patient does complain of some nonspecific chest discomfort when she walks her dog. [] Past Medical History Allergies/Adverse Reactions: Allergies No Known Allergies Allergy (Verified 12/18/17 01:21) Home Medications: Ambulatory Orders Medication Instructions Recorded Lisinopril [Zestril] 10 mg PO BID 11/18/15 Aspirin [Aspirin, Baby] 81 mg PO DAILY@0800 #30 tab.chew 11/19/15 Venlafaxine XR [Effexor Xr] 150 mg PO DAILY 01/31/16 Atorvastatin Calcium [Lipitor] 10 mg PO QHS 10/03/16 Esomeprazole Mag Trihydrate 40 mg PO DAILY 10/03/16 [Nexium] Oxycodone HCl/Acetaminophen 1 tab PO BID PRN 10/03/16 [Percocet 5/325] Ondansetron HCl [Zofran] 4 mg PO 4X/DAY PRN PRN #14 tab 06/17/17 carvedilol 6.25 mg tablet 6.25 mg PO BID 11/16/17 lorazepam 1 mg tablet 1 mg PO BID tab 11/16/17 venlafaxine 37.5 mg tablet 37.5 mg PO QDAY tab 11/16/17 Morphine Sulfate/Naltrexone 1 cap PO DAILY 12/18/17 [Embeda ER 60-2.4 mg Capsule] Past Medical History (Chronic Problems): Chronic Problems (Last Updated 11/16/17 @ 11:07 by Delilah Benavides) Tobacco use (Chronic) EVELYN (obstructive sleep apnea) (Chronic) Obesity (BMI 30.0-34.9) (Chronic) TIA (transient ischemic attack) (Chronic) Anxiety and depression (Chronic) Cardiomyopathy (Chronic) Atherosclerotic heart disease of [place] coronary artery without angina pectoris (Chronic) Mild Hypertension (Chronic) Surgical History: appendectomy, hysterectomy Psychiatric History: Anxiety, Depression 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 - *Family History Maternal Family History: Family History (Last Updated 11/16/17 @ 11:08 by Delilah Benavides) Mother Hypertension CAD (coronary artery disease) CVA (cerebral vascular accident) Myocardial infarction Grandmother Myocardial infarction History Items: Heart Disease Paternal Family History: Family History (Last Updated 11/16/17 @ 11:08 by Delilah Benavides) Mother Hypertension CAD (coronary artery disease) CVA (cerebral vascular accident) Myocardial infarction Grandmother Myocardial infarction History Items: No pertinent history Lives: Alone Smoking Status: Current every day smoker Tobacco Use: Cigarettes Alcohol: None Drugs: None Review of Systems - Review of Systems General: Denies: Fever, Malaise, Chills HEENT: Denies: Head Aches Cardiovascular: Reports: Chest Discomfort, Chest Discomfort at Rest, Chest Discomfort with Exertion, Shortness of Breath with Exertion Respiratory: Denies: Cough, Hemoptysis Gastrointestinal: Reports: - - Patient has history of Sanchez's esophagus according to her. Denies: Heart Burn, Abdominal Discomfort, Jaundice, Nausea, Hematemesis, Melena Muscoloskeletal: Denies: Myalgias Neurological: Reports: History of TIA, History of CVA Endocrine: Denies: Heat Intolerance, Cold Intolerance Hematologic/ Lymphatic: Denies: Anemia, Easy Brusing, Easy Bleeding Subjectve: Comfortable. No apparent distress. Lying flat in the bed Objective: Vital Signs Temp Pulse Resp BP Pulse Ox 97.9 F 61 14 123/71 H 94 12/18/17 09:49 12/18/17 09:49 12/18/17 09:49 12/18/17 09:49 12/18/17 09:49 Oxygen Delivery Method Room Air Weight: 83.4 kg Body Mass Index (BMI) 30.6 Intake and Output for Last 24 Hours 12/16/17 12/17/17 12/18/17 23:59 23:59 23:59 Intake Total 292 / 292 Balance 292 / 292 General: Healthy Appearing, Awake, Alert, Oriented x 3, No Acute Distress HEENT: Atraumatic, Normocephalic Oral: Moist Mucosa Neck: Supple, No JVD Lungs: Clear to auscultation Cardiovascular: Regular Rhythm, Normal S1, Normal S2 Vascular: No Carotid Bruits Abdomen: Bowel Sounds Present, Soft, Non Tender Extremities: No Cyanosis, No edema Neurological: No Focal Motor or Sensory Deficit Psych/Mental Status: Appropriate 12/18/17 05:20: Sodium 145, Potassium 3.7, Chloride 110 H, Carbon Dioxide 29.0, Anion Gap 6, BUN 17, Creatinine 0.64, Est GFR (MDRD) Af Amer 122, Est GFR (MDRD ) Non-Af 101, BUN/Creatinine Ratio 26.7 H, Glucose 112 H, Calcium 8.5, Magnesium 2.1, Triglycerides 350 H, Cholesterol 189, LDL Cholesterol 93, VLDL Cholesterol 70 H, HDL Cholesterol 26 L 12/18/17 05:20: WBC 7.4, RBC 3.86 L, Hgb 12.3, Hct 36.9 L, MCV 95.6, MCH 31.9, MCHC 33.3, RDW 13.0, RDW Differential 43.8, Plt Count 220, MPV 9.0 12/18/17 05:20: Troponin I 5.24 H* 12/18/17 05:20: PT 13.4, INR 1.0, APTT 29.8 12/18/17 09:30: Troponin I 9.26 H* Rhythm: Normal sinus EKG: Normal sinus rhythm. T-wave inversion in precordial leads consistent with anterior ischemia : Assessment/Plan 1. Non-ST elevation myocardial infarction. Patient was offered cardiac catheterization with coronary angiography and possible revascularization. Risks benefits and alternatives explained. She understands these and wishes to proceed 2. Continue aspirin. Continue carvedilol 3. Dyslipidemia. Manage as per internal medicine 4. Nicotine dependence. Counseled to quit 5. History of CVA without any residual defect 6. History of Sanchez's esophagus. No history of melena or hematemesis
--- NOTE | 2017-12-18 12:29 | CL.D_ITS ---
Patient Name: ECHO KERNS Study Date: 12/18/2017 Performing: Jose D Villanueva MD Ht: 65 inches 165 cm : 1955 Wt: 183.2 lbs 83 kg Age: 62 Gender: female BSA: 1.9 PROCEDURE(S) PERFORMED [id number] CLINICAL PROFILE AND INDICATIONS Heart Failure: None CAD Presentations: Non-STEMI. Symptom onset Date/Time: 12/17/2017 Time Not Available CONCLUSIONS Culpril vessel 2 mm small sub-D1 with 100% Mid occlusion 40-50% Prox LAD, 60% distal Mid LAD 40% Prox Ramus 40-50% Prox RCA, 60% distal Mid RCA, 60% Prox RPLV RECOMMENDATIONS Medical therapy Risk factor modification DESCRIPTION OF PROCEDURE The patient arrived to the procedure lab. The risks and benefits of the procedure as well as a full d escription of our services here and current unavailability of surgical backup were fully explained to the patient and/or their significant other prior to the catheterization. The Timeout was completed, verifying the correct patient and procedure. The patient's procedural site was prepped and draped in the usual fashion. Local anesthetic was given subcutaneously to right radial region with Lidocaine 2% . Using a modified Seldinger technique, arterial access was obtained via the right radial artery, a 6 Fr sheath was inserted. Left Coronary Artery selective angiography was performed in multiple views u sing a 5 Fr. 4.0 Mcneal catheter. Right Coronary Artery selective angiography was then performed in mu ltiple views using a 5 Fr. 4.0 Mcneal catheter.The arterial sheath was pulled and a TR Band was applie d for hemostasis. 17cc air inserted CORONARY ANGIOGRAPHY DOMINANCE: Right Dominant LEFT HEART ASSESSMENT LVEDP: 9 mmHg Thebesian network noted, filling from RCA LEFT MAIN: No angiographic disease LEFT ANTERIOR DECENDING ARTERY: 50% Prox, 60% distal Mid, Small 2 mm sub-D1 100% Mid with TMI II flow CIRCUMFLEX ARTERY: Mild luminal irregularities RAMUS: 40% Proximal RIGHT CORONARY ARTERY: 40-50% Proximal, 60% distal Mid, RPLV 60% Proximal COMPLICATIONS No Complications PROCEDURE MEDICATIONS Fentanyl 50 mcg IV Versed 1 mg IV Versed 1 mg IV Fentanyl 25 mcg IV Fentanyl 25 mcg IV Oxygen: 2 L/min via nasal cannula Heparin 25,000u / 250ml D5W @ 0 u/hr discontinued 12/18/2017 11:27:00 Heparin given IA 12/18/2017 11:40:59 Verapamil 2.5mg, Ntg 100mcgs, 2000 units of Heparin given IA 12/18/2017 11:40:59 IV Fluids: .9 NaCl increased to 100 ml/hr 12/18/2017 11:46:32 SUMMARY OF HEMODYNAMIC DATA Time AIR REST ECG 11:33:45 LV 104/4, 12 11:44:49 LV 96/3, 9 11:44:57 AO 100/58 (74) SA 11:45:41 Signed By Jose D Villanueva MD On 12/18/2017 12:28:43 Jose D Villanueva MD
--- NOTE | 2017-12-18 12:30 | PCM.PN.BLA ---
Progress Note Cardiac catheterization and coronary angiography performed through right radial approach. Please see report for detailed information. Culprit vessel identified as a small 2 mm branch of the first diagonal. Recommend medical therapy. Start on Plavix, nitrates. Continue aspirin and beta blockers. Quit smoking. May discharge home in the morning if continues to be asymptomatic. Follow-up with Dr. Best in the office in 1-2 weeks time.
--- NOTE | 2017-12-18 12:32 | ECHOD_ITS ---
Reason For Study: NSTEMI Procedure This was a 2D Doppler, Color Flow transthoracic echocardiogram. Exam performed portable in patient room. Left Ventricle Normal LV size. Mild concentric left ventricular hypertrophy. Left ventricular systolic function is normal. The estimated ejection fraction is 55 %. Transmitral diastolic flow velocities suggest mild (stage 1) diastolic dysfunction (reversed pattern). Lateral Blain : Akinetic. Anterior Blain : Hypokinetic. The rest of the wall segments are normal. Right Ventricle Normal RV size. Normal systolic function. Atria Normal left atrium. Normal right atrium. Mitral Valve There is mild mitral annular calcification. Mild (1+) eccentric mitral valve insufficiency. Tricuspid Valve Normal tricuspid valve. Mild (1+) tricuspid valve insufficiency. Pulmonary artery systolic pressure is 25 mmHg. Aortic Valve Trisinus/trileaflet aortic valve. Mild focal aortic valve calcification. Pulmonic Valve Normal pulmonic valve. Great Vessels Normal aortic root. The pulmonary artery is normal size. Pericardium/Pleural No pericardial effusion. MMode/2D Measurements & Calculations LVIDd: 4.7 cm IVSd: 1.3 cm Ao root diam: 2.9 cm LVIDs: 3.6 cm LVPWd: 1.2 cm LA dimension: 4.2 cm RVDd: 3.1 cm FS: 24.5 % LAV(MOD-bp): 53.0 ml LA A4 area: 19.3 cm2 RA A4 area: 10.7 cm2 LAV(MOD-bp) Indexed: 27.8 ml/m2 LAV(MOD-sp2): 48.6 ml LAV(MOD-sp4): 53.1 ml Doppler Measurements & Calculations MV E max bryson: 69.7 cm/sec Lat Peak E' Bryson: 6.2 cm/sec Med Peak E' Bryson: 5.1 cm/sec MV A max bryson: 75.1 cm/sec E/E' lat: 11.2 E/E' med: 13.6 MV E/A: 0.93 Ao V2 max: 159.4 cm/sec LV V1 max: 115.0 cm/sec PA V2 max: 92.0 cm/sec Ao max P.2 mmHg LV V1 max P.3 mmHg TR max bryson: 227.1 cm/sec TR max P.9 mmHg Interpretation Summary Normal LV size. Mild concentric left ventricular hypertrophy. Left ventricular systolic function is normal. The estimated ejection fraction is 55 %. Transmitral diastolic flow velocities suggest mild (stage 1) diastolic dysfunction (reversed pattern). The rest of the wall segments are normal. Compared to prior study, there is no significant change. Ordering Physician: Jose D Villanueva Referring Physician: Chucky Martinez Performed By: Cathy Whitaker RDCS
[2017-12-18] MEDS: Isosorbide Mononitrate 30 MG Tablet PO (13:02)
[2017-12-18] MEDS: Clopidogrel Bisulfate 300 MG Tablet PO (13:02)
--- NOTE | 2017-12-18 18:13 | NURSING ---
all patient care, medication administration, & charting by Vaibhav Kaye, Student Nurse, done under the supervision of this RN.
--- NOTE | 2017-12-18 20:09 | PCM.PROGNOTE ---
Patient Problems: Active and Suspected Problems (Last Updated 11/16/17 @ 11:07 by Delilah Benavides) COPD (chronic obstructive pulmonary disease) (Acute) GERD (gastroesophageal reflux disease) (Acute) Chest pain (Acute) Acute chest pain (Acute) NSTEMI (non-ST elevated myocardial infarction) (Acute) Subjective: Pt is a 62 YO female with a PMH of cardiomyopathy, hyperlipidemia, coronary artery disease, hypertension, COPD, ongoing tobacco dependence, obstructive sleep apnea, obesity, GERD, anxiety/depression and a history of a TIA who presented to the emergency department at [facility] on 12/18/2017 complaining of left upper back pain which radiated to the midsternal chest and into her neck and jaw bilaterally. EKG showed no ST segment elevation and the initial troponin was less than 0.02. She was admitted to a monitored bed on PCU and serial cardiac enzymes were ordered. The second troponin was 5.[address] Villanueva was consulted and performed a cardiac catheterization. Please see the cath report for findings. Medical management was recommended. Echocardiogram showed mild concentric left ventricular hypertrophy with a 55% ejection fraction and no wall motion abnormality. There was stage I diastolic dysfunction. She was started on Plavix and nitrates in addition to aspirin and beta blockers. Smoking cessation counseling was administered by myself and Dr. Villanueva. - Physical Exam General: Alert, Oriented x3, Cooperative, No apparent distress HEENT: Atraumatic, PERRLA, EOMI Oral: Moist Mucosa Neck: No JVD, Negative Carotid Bruits Lungs: Diminished, Wheezes - Mild, expiratory Cardiovascular: Regular rate, Regular Rhythm, Normal S1, Normal S2, No rub noted, No Gallop Abdomen: Bowel Sounds Present, Soft, Non Tender, Non-Distended, Obese Extremities: No clubbing, No cyanosis, No edema, No Calf Tenderness Neurological: Cranial nerves II-XII grossly intact, Neuro grossly intact Psych/Mental Status: Normal Affect, Appropriate Vital Signs Temp Pulse Resp BP Pulse Ox 97.4 F L 56 L 16 95/57 L 94 12/18/17 18:15 12/18/17 19:18 12/18/17 18:15 12/18/17 18:15 12/18/17 18:15 Oxygen Delivery Method Room Air Weight: 183 lb 13.848 oz Body Mass Index (BMI) 30.6 Intake and Output for Last 24 Hours 12/16/17 12/17/17 12/18/17 23:59 23:59 23:59 Intake Total 1244 / 1244 Balance 1244 / 1244 Laboratory Tests Past 24 Hrs 12/18/17 12/18/17 12/18/17 05:20 05:20 05:20 WBC 7.4 RBC 3.86 L Hgb 12.3 Hct 36.9 L MCV 95.6 MCH 31.9 MCHC 33.3 RDW 13.0 RDW Differential 43.8 Plt Count 220 MPV 9.0 PT INR APTT Sodium 145 Potassium 3.7 Chloride 110 H Carbon Dioxide 29.0 Anion Gap 6 BUN 17 Creatinine 0.64 Estim Creat Clear Calc 83.06 Est GFR (MDRD) Af Amer 122 Est GFR (MDRD) Non-Af 101 BUN/Creatinine Ratio 26.7 H Glucose 112 H Calcium 8.5 Magnesium 2.1 Troponin I 5.24 H* Triglycerides 350 H Cholesterol 189 LDL Cholesterol 93 VLDL Cholesterol 70 H HDL Cholesterol 26 L 12/18/17 12/18/17 12/18/17 05:20 09:30 15:55 WBC RBC Hgb Hct MCV MCH MCHC RDW RDW Differential Plt Count MPV PT 13.4 INR 1.0 APTT 29.8 Sodium Potassium Chloride Carbon Dioxide Anion Gap BUN Creatinine Estim Creat Clear Calc Est GFR (MDRD) Af Amer Est GFR (MDRD) Non-Af BUN/Creatinine Ratio Glucose Calcium Magnesium Troponin I 9.26 H* 5.74 H* Triglycerides Cholesterol LDL Cholesterol VLDL Cholesterol HDL Cholesterol Medical Necessity - Tobacco Use Smoking Status: Current every day smoker Tobacco Use: Cigarettes Assessment/Plan Active and Suspected Problems (Last Updated 11/16/17 @ 11:07 by Delilah Benavides) COPD (chronic obstructive pulmonary disease) (Acute) GERD (gastroesophageal reflux disease) (Acute) Chest pain (Acute) Acute chest pain (Acute) NSTEMI (non-ST elevated myocardial infarction) (Acute) Impressions 1. Non-ST elevation [place] 2. Coronary artery disease 3. Ongoing nicotine addiction 4. Hypertension 5. Hyperlipidemia 6. Obesity 7. Obstructive sleep apnea-not using noninvasive ventilation at home 8. Anxiety/depression 9. GERD 10. COPD 11. stage 1 diastolic dysfunction continue the drug regimen as outlined by Dr. Villanueva. If no CP may be able to be discharged in the AM Will follow up with dr. Best in the office in 1-2 weeks. Code Visit Procedures: 96117 Prolonged InPt Service; first hour
[2017-12-18] MEDS: Atorvastatin Calcium 80 MG Tablet PO (21:46)
[2017-12-19 02:00] VITALS: BP 122/72; PULSE 57; RESP 16; TEMP 36.7; O2SAT 92
[2017-12-19] MEDS: oxyCODONE 5 MG Tablet PO ×2 (02:21→08:48)
[2017-12-19 03:00] VITALS: PULSE 59
[2017-12-19 07:10] VITALS: O2SAT 92
[2017-12-19 07:13] VITALS: PULSE 67
[2017-12-19 08:00] VITALS: BP 149/80; PULSE 59; RESP 16; TEMP 36.6; O2SAT 96
[2017-12-19] MEDS: Aspirin 81 MG TAB.CHEW PO (08:48)
[2017-12-19] MEDS: Venlafaxine XR 150 MG Capsule PO (10:36)
[2017-12-19] MEDS: Famotidine 20 MG Tablet PO (10:36)
[2017-12-19] MEDS: Carvedilol 6.25 MG Tablet PO (10:36)
[2017-12-19] MEDS: Venlafaxine XR 37.5 MG Capsule PO (10:36)
[2017-12-19] MEDS: Isosorbide Mononitrate 30 MG Tablet PO (10:36)
[2017-12-19] MEDS: Clopidogrel Bisulfate 75 MG Tablet PO (10:37)
[2017-12-19] MEDS: Lisinopril 10 MG Tablet PO (10:37)
[2017-12-19] MEDS: LORazepam 1 MG Tablet PO (10:47)
--- NOTE | 2017-12-19 10:59 | PCM.DC ---
- Discharge Diagnoses Current Active Problems: Current Active and Chronic Problems (Last Updated 11/16/17 @ 11:07 by Delilah Benavides) COPD (chronic obstructive pulmonary disease) (Acute) Tobacco use (Chronic) EVELYN (obstructive sleep apnea) (Chronic) Obesity (BMI 30.0-34.9) (Chronic) TIA (transient ischemic attack) (Chronic) GERD (gastroesophageal reflux disease) (Acute) Anxiety and depression (Chronic) Chest pain (Acute) Acute chest pain (Acute) NSTEMI (non-ST elevated myocardial infarction) (Acute) You will use the following diet at home:: Cardiac Discharge Activity: - - Follow post-op cath instructions. Call your doctor if your incision/area has: Continuous Slow Oozing, Sudden Increased Bleeding, Increased Pain/ Swelling, Increased Redness, Foul Smelling Discharge, Swelling at the incision site Call your doctor if you observe: Shortness of breath, Dizziness, Fainting spells, Chest pain, Increased palpitations (irregular heartbeat) Allergies/Adverse Reactions: Allergies No Known Allergies Allergy (Verified 12/18/17 01:21) Medications to take at Discharge Lisinopril [Zestril] 10 mg PO BID 11/18/15 Aspirin [Aspirin, Baby] 81 mg PO DAILY@0800 #30 tab.chew 11/19/15 Venlafaxine XR [Effexor Xr] 150 mg PO DAILY 01/31/16 Esomeprazole Mag Trihydrate [Nexium] 40 mg PO DAILY 10/03/16 Oxycodone HCl/Acetaminophen [Percocet 5-325] 1 tab PO BID PRN 10/03/16 Ondansetron HCl [Zofran] 4 mg PO 4X/DAY PRN PRN #14 tab 06/17/17 carvedilol 6.25 mg tablet 6.25 mg PO BID 11/16/17 lorazepam 1 mg tablet 1 mg PO BID tab 11/16/17 venlafaxine 37.5 mg tablet 37.5 mg PO QDAY tab 11/16/17 Morphine Sulfate/Naltrexone [Embeda ER 60-2.4 mg Capsule] 1 cap PO DAILY 12/18/17 Atorvastatin Calcium [Lipitor] 20 mg PO QHS #30 tab 12/19/17 Clopidogrel Bisulfate [Plavix] 75 mg PO DAILY #30 tab 12/19/17 Isosorbide Mononitrate [Imdur] 30 mg PO DAILY #30 tab 12/19/17 The following prescriptions were given: Atorvastatin Calcium [Lipitor] 20 mg PO QHS #30 tab Clopidogrel Bisulfate [Plavix] 75 mg PO DAILY #30 tab Isosorbide Mononitrate [Imdur] 30 mg PO DAILY #30 tab Primary Care Physician: Chucky Martinez MD [Primary Care Provider] - Please follow up with your Primary Care Physician in: 1 Week Please Follow Up With: Danny Best MD When: 1-2 Weeks Proposed Discharge Date: 12/19/17
--- NOTE | 2017-12-19 11:04 | PCM.DC.SUM ---
Discharge Date and Diagnosis Date of Admission: 12/18/17 Date of Discharge: 12/19/17 - Primary Discharge Diagnosis Active and Suspected Problems (Last Updated 11/16/17 @ 11:07 by Delilah Benavides) 1. Acute NSTEMI 2. CAD 3. Chronic diastolic CHF 4. Hypertension 5. Hyperlipidemia 6. Obstructive sleep apnea 7. Tobacco dependence 8. COPD 9. Obesity 10. Anxiety/depression - Secondary Discharge Diagnosis Chronic Problems (Last Updated 11/16/17 @ 11:07 by Delilah Benavides) Tobacco use (Chronic) EVELYN (obstructive sleep apnea) (Chronic) Obesity (BMI 30.0-34.9) (Chronic) TIA (transient ischemic attack) (Chronic) Anxiety and depression (Chronic) Cardiomyopathy (Chronic) Atherosclerotic heart disease of [place] coronary artery without angina pectoris (Chronic) Mild Hypertension (Chronic) Hospital Course and Treatment Imaging Results: Diagnostic Data Chest X-Ray 12/18/17 01:37 IMPRESSION: No active pulmonary disease. Electronically Signed: Raghavendra Agustin MD at 2:31 EDT Tel , Service support , Dr. Villanueva- Cardiology Operations: None Procedures: 2-D Echocardiogram, Cardiac catheterization Summary of Care Provided: Patient is a 62-year-old female admitted 12/18/17 due to chest pain. She has a past medical history of obesity, tobacco use, hypertension, hyperlipidemia, GERD, COPD, CAD, TIA, obstructive sleep apnea, anxiety, depression, chronic diastolic CHF. 1. Acute NSTEMI-EKG showed no ST elevation. Troponin peaked at 9.26. Cardiology was consulted. Patient underwent cardiac catheterization which demonstrated culprit vessel 2 mm small sub-D1 with 100% mid occlusion, 40-50% proximal LAD, 60% distal mid LAD, 40% proximal ramus, 40-50% proximal RCA, 60% distal mid RCA, 60% proximal RPLD. Echocardiogram showed an EF of 55%, stage I diastolic dysfunction, no change compared to previous study. Patient will continue medical management. Nitrate and Plavix added to current regimen. Her atorvastatin was increased to 20 mg nightly. Patient follows with Dr. Best as outpatient. He will follow-up with Dr. Best in 1-2 weeks. 2. CAD-continue aspirin, statin, Plavix, beta-darian, nitrate. 3. Chronic diastolic CHF-no acute exacerbation. Current echo as noted above. 4. Hypertension-stable, continue current regimen. 5. Hyperlipidemia-atorvastatin increased to 20 mg nightly. 6. Obstructive sleep apnea 7. Tobacco dependence-encourage smoking cessation. 8. COPD-no acute exacerbation. Not on home inhaler regimen. 9. Obesity 10. Anxiety/depression General: Alert, Oriented x3, Cooperative, No apparent distress HEENT: Atraumatic, PERRLA, EOMI Oral: Moist Mucosa Neck: No JVD, Negative Carotid Bruits Lungs: Diminished, mild expiratory wheezes Cardiovascular: Regular rate, Regular Rhythm, Normal S1, Normal S2, No rub noted, No Gallop Abdomen: Bowel Sounds Present, Soft, Non Tender, Non-Distended, Obese Extremities: No clubbing, No cyanosis, No edema, No Calf Tenderness Neurological: Cranial nerves II-XII grossly intact, Neuro grossly intact Psych/Mental Status: Normal Affect, Appropriate Patient seen and examined prior to discharge. Physical assessment as noted above. Patient is stable for discharge home with further follow-up recommendations as noted above. This patient was seen by FATMATA Macdonald under the supervision of Dr. Harry. Discharge Diet: Low fat/ Low Cholesterol Discharge Activity: - - Follow post-op cath instructions. Call your doctor if your incision/area has: Continuous Slow Oozing, Sudden Increased Bleeding, Increased Pain/ Swelling, Increased Redness, Foul Smelling Discharge, Swelling at the incision site Call your doctor if you observe: Shortness of breath, Dizziness, Fainting spells, Chest pain, Increased palpitations (irregular heartbeat) Home Medications: Medications to take at Discharge Lisinopril [Zestril] 10 mg PO BID 11/18/15 Aspirin [Aspirin, Baby] 81 mg PO DAILY@0800 #30 tab.chew 11/19/15 Venlafaxine XR [Effexor Xr] 150 mg PO DAILY 01/31/16 Esomeprazole Mag Trihydrate [Nexium] 40 mg PO DAILY 10/03/16 Oxycodone HCl/Acetaminophen [Percocet 5-325] 1 tab PO BID PRN 10/03/16 Ondansetron HCl [Zofran] 4 mg PO 4X/DAY PRN PRN #14 tab 06/17/17 carvedilol 6.25 mg tablet 6.25 mg PO BID 11/16/17 lorazepam 1 mg tablet 1 mg PO BID tab 11/16/17 venlafaxine 37.5 mg tablet 37.5 mg PO QDAY tab 11/16/17 Morphine Sulfate/Naltrexone [Embeda ER 60-2.4 mg Capsule] 1 cap PO DAILY 12/18/17 Atorvastatin Calcium [Lipitor] 20 mg PO QHS #30 tab 12/19/17 Clopidogrel Bisulfate [Plavix] 75 mg PO DAILY #30 tab 12/19/17 Isosorbide Mononitrate [Imdur] 30 mg PO DAILY #30 tab 12/19/17 Following Prescrptions Were Given to Patient: Atorvastatin Calcium [Lipitor] 20 mg PO QHS #30 tab Clopidogrel Bisulfate [Plavix] 75 mg PO DAILY #30 tab Isosorbide Mononitrate [Imdur] 30 mg PO DAILY #30 tab Primary Care Physician: Chucky Martinez MD [Primary Care Provider] - Please follow up with your Primary Care Physician in: 1 Week Please Follow Up With: Danny Best MD When: 1-2 Weeks Disposition: Home Minutes spent on discharge:: 35 Patient Condition:: Stable Medical Necessity - Tobacco Use Smoking Status: Current every day smoker Tobacco Use: Cigarettes Meaningful Use Info Meaningful Use Diagnoses (Choose all that apply): AMI - AMI Aspirin given w/in 24hrs of arrival?: Yes ASA at discharge?: Yes Statins at discharge?: Yes Todd/ARB at discharge?: Yes Beta Darian at discharge?: Yes Done w/ Acute [place] measure.: Yes
[2017-12-19 11:06] VITALS: PULSE 61
--- NOTE | 2017-12-19 11:15 | DS.PCM_ITS ---
Discharge Date and Diagnosis Date of Admission: 12/18/17 Date of Discharge: 12/19/17 - Primary Discharge Diagnosis Active and Suspected Problems (Last Updated 11/16/17 @ 11:07 by Delilah Benavides ) 1. Acute NSTEMI 2. CAD 3. Chronic diastolic CHF 4. Hypertension 5. Hyperlipidemia 6. Obstructive sleep apnea 7. Tobacco dependence 8. COPD 9. Obesity 10. Anxiety/depression - Secondary Discharge Diagnosis Chronic Problems (Last Updated 11/16/17 @ 11:07 by Delilah Benavides) Tobacco use (Chronic) EVELYN (obstructive sleep apnea) (Chronic) Obesity (BMI 30.0-34.9) (Chronic) TIA (transient ischemic attack) (Chronic) Anxiety and depression (Chronic) Cardiomyopathy (Chronic) Atherosclerotic heart disease of [place] coronary artery without angina pectoris (Chronic) Mild Hypertension (Chronic) Hospital Course and Treatment Imaging Results: Diagnostic Data Chest X-Ray 12/18/17 01:37 IMPRESSION: No active pulmonary disease. Electronically Signed: Raghavendra Agustin MD at 2:31 EDT Tel , Service support , Dr. Villanueva- Cardiology Operations: None Procedures: 2-D Echocardiogram, Cardiac catheterization Summary of Care Provided: Patient is a 62-year-old female admitted 12/18/17 due to chest pain. She has a past medical history of obesity, tobacco use, hypertension, hyperlipidemia, GERD , COPD, CAD, TIA, obstructive sleep apnea, anxiety, depression, chronic diastolic CHF. 1. Acute NSTEMI-EKG showed no ST elevation. Troponin peaked at 9.26. Cardiology was consulted. Patient underwent cardiac catheterization which demonstrated culprit vessel 2 mm small sub-D1 with 100% mid occlusion, 40-50% proximal LAD, 60% distal mid LAD, 40% proximal ramus, 40-50% proximal RCA, 60% distal mid RCA, 60% proximal RPLD. Echocardiogram showed an EF of 55%, stage I diastolic dysfunction, no change compared to previous study. Patient will continue medical management. Nitrate and Plavix added to current regimen. Her atorvastatin was increased to 20 mg nightly. Patient follows with Dr. Best as outpatient. He will follow-up with Dr. Best in 1-2 weeks. 2. CAD-continue aspirin, statin, Plavix, beta-darian, nitrate. 3. Chronic diastolic CHF-no acute exacerbation. Current echo as noted above. 4. Hypertension-stable, continue current regimen. 5. Hyperlipidemia-atorvastatin increased to 20 mg nightly. 6. Obstructive sleep apnea 7. Tobacco dependence-encourage smoking cessation. 8. COPD-no acute exacerbation. Not on home inhaler regimen. 9. Obesity 10. Anxiety/depression General: Alert, Oriented x3, Cooperative, No apparent distress HEENT: Atraumatic, PERRLA, EOMI Oral: Moist Mucosa Neck: No JVD, Negative Carotid Bruits Lungs: Diminished, mild expiratory wheezes Cardiovascular: Regular rate, Regular Rhythm, Normal S1, Normal S2, No rub noted , No Gallop Abdomen: Bowel Sounds Present, Soft, Non Tender, Non-Distended, Obese Extremities: No clubbing, No cyanosis, No edema, No Calf Tenderness Neurological: Cranial nerves II-XII grossly intact, Neuro grossly intact Psych/Mental Status: Normal Affect, Appropriate Patient seen and examined prior to discharge. Physical assessment as noted above. Patient is stable for discharge home with further follow-up recommendations as noted above. This patient was seen by FATMATA Macdonald under the supervision of Dr. Harry. Discharge Diet: Low fat/ Low Cholesterol Discharge Activity: - - Follow post-op cath instructions. Call your doctor if your incision/area has: Continuous Slow Oozing, Sudden Increased Bleeding, Increased Pain/ Swelling, Increased Redness, Foul Smelling Discharge, Swelling at the incision site Call your doctor if you observe: Shortness of breath, Dizziness, Fainting spells , Chest pain, Increased palpitations (irregular heartbeat) Home Medications: Medications to take at Discharge Lisinopril [Zestril] 10 mg PO BID 11/18/15 Aspirin [Aspirin, Baby] 81 mg PO DAILY@0800 #30 tab.chew 11/19/15 Venlafaxine XR [Effexor Xr] 150 mg PO DAILY 01/31/16 Esomeprazole Mag Trihydrate [Nexium] 40 mg PO DAILY 10/03/16 Oxycodone HCl/Acetaminophen [Percocet 5-325] 1 tab PO BID PRN 10/03/16 Ondansetron HCl [Zofran] 4 mg PO 4X/DAY PRN PRN #14 tab 06/17/17 carvedilol 6.25 mg tablet 6.25 mg PO BID 11/16/17 lorazepam 1 mg tablet 1 mg PO BID tab 11/16/17 venlafaxine 37.5 mg tablet 37.5 mg PO QDAY tab 11/16/17 Morphine Sulfate/Naltrexone [Embeda ER 60-2.4 mg Capsule] 1 cap PO DAILY Atorvastatin Calcium [Lipitor] 20 mg PO QHS #30 tab 12/19/17 Clopidogrel Bisulfate [Plavix] 75 mg PO DAILY #30 tab 12/19/17 Isosorbide Mononitrate [Imdur] 30 mg PO DAILY #30 tab 12/19/17 Following Prescrptions Were Given to Patient: Atorvastatin Calcium [Lipitor] 20 mg PO QHS #30 tab Clopidogrel Bisulfate [Plavix] 75 mg PO DAILY #30 tab Isosorbide Mononitrate [Imdur] 30 mg PO DAILY #30 tab Primary Care Physician: Chucky Martinez MD [Primary Care Provider] - Please follow up with your Primary Care Physician in: 1 Week Please Follow Up With: Danny Best MD When: 1-2 Weeks Disposition: Home Minutes spent on discharge:: 35 Patient Condition:: Stable Medical Necessity - Tobacco Use Smoking Status: Current every day smoker Tobacco Use: Cigarettes Meaningful Use Info Meaningful Use Diagnoses (Choose all that apply): AMI - AMI Aspirin given w/in 24hrs of arrival?: Yes ASA at discharge?: Yes Statins at discharge?: Yes Todd/ARB at discharge?: Yes Beta Darian at discharge?: Yes Done w/ Acute [place] measure.: Yes
--- NOTE | 2017-12-19 12:58 | NURSING ---
Reviewed and agreed on all charting with Maryellen Acosta RN
--- NOTE | 2017-12-22 14:55 | CASEMGMT ---
WENDY CANCINO DISCHARGE F/U PHONE CALL LACE: 10 STRATA: 3 CALL DATE: 12/22/17 DISCHARGE DATE: 12/19/17 TIME OF CALL: [id number] ATTEMPTED CALL WITHOUT SUCCESS, MESSAGE STATES THAT PT IS UNABLE TO TAKE ANY CALLS AT THIS TIME. SSTATEN WENDY CANCINO
== END 2017-12-19 12:57 | disposition home or self-care (01) | DRG 281 ==
LOC: ED 02:11 → PCU 03:38
PROVIDERS: Admitting Provider Family Medicine; Emergency Provider Emergency Medicine; Family Provider Family Medicine; PCP Family Medicine; Visit Provider Internal Medicine
DX: I21.4 Non-ST elevation (NSTEMI) myocardial infarction (principal); I42.9 Cardiomyopathy, unspecified; I50.32 Chronic diastolic (congestive) heart failure; I25.10 Atherosclerotic heart disease of native coronary artery without angina pectoris; I11.0 Hypertensive heart disease with heart failure; J44.9 Chronic obstructive pulmonary disease, unspecified; E78.5 Hyperlipidemia, unspecified; G47.33 Obstructive sleep apnea (adult) (pediatric); M54.9 Dorsalgia, unspecified; G89.4 Chronic pain syndrome; K21.9 Gastro-esophageal reflux disease without esophagitis; F32.9 Major depressive disorder, single episode, unspecified; F41.9 Anxiety disorder, unspecified; F17.210 Nicotine dependence, cigarettes, uncomplicated; E66.9 Obesity, unspecified; Z68.30 Body mass index [BMI] 30.0-30.9, adult; I25.2 Old myocardial infarction; Z79.899 Other long term (current) drug therapy; Z86.73 Personal history of transient ischemic attack (TIA), and cerebral infarction without residual deficits
CPT/HCPCS: 36415; 71045; 80048; 80061; 83735; 84484; 85025; 85027; 85610; 85730; 93005; 93306; 93454; 96360; 96361; 96365; 96366; 96375; 96376; 97802; 99152; 99153; 99218; 99285; J3010; J7030; Q9967; A4216; C1769; C1894; G0378; J2785

== ENCOUNTER 2018-03-12 15:50 | Emergency (ER) | payer MEDICARE, SELFPAY ==
[2018-03-12 15:51] VITALS: BP 188/122; PULSE 79; RESP 18; TEMP 36.1; O2SAT 99; BMI 28.6
[2018-03-12 16:26] VITALS: BP 195/98; PULSE 70; RESP 18; O2SAT 95
--- NOTE | 2018-03-12 16:26 | EKG12_ITS ---
Test Reason : GENERAL ILLNESS Blood Pressure : / mmHG Vent. Rate : 066 BPM Atrial Rate : 066 BPM P-R Int : 134 ms QRS Dur : 108 ms QT Int : 388 ms P-R-T Axes : 054 019 057 degrees QTc Int : 406 ms Normal sinus rhythm Septal infarct , age undetermined T wave abnormality, consider anterior ischemia Abnormal ECG Confirmed by CECI MARTINEZ, GEO ([id number]), map editor LOPEZ VERA ([id number]) on 03/15/2018 2:10:27 PM Referred By: BLADIMIR Confirmed By:GEO ORNELAS MD
--- NOTE | 2018-03-12 16:30 | RAD_ITS ---
STUDY: X-RAY CHEST REASON FOR EXAM: Female, 62 years old. Chest pain, anxiety, cough TECHNIQUE: Single AP portable view of the chest. COMPARISON: Prior study of 12/18/2017 FINDINGS: cafeteria monitor leads are present. The lungs are clear and expanded. There is no demonstrated pleural abnormality. Normal size heart. Normal mediastinum and dru. Normal visualized pulmonary arteries. There are calcified plaques of the aortic arch. Normal visualized thoracic spine. Normal visualized ribs, clavicles, and shoulders. There is no demonstrated abnormality of the visualized soft tissue structures of the upper abdomen. RAD/Chest 1 View (Portable) IMPRESSION: Calcified plaques of the aortic arch. No acute cardiopulmonary disease process is seen. Chest findings are stable in the interval. Electronically Signed: Boaz Duque MD at 16:47 EDT , Service support ,
[2018-03-12 16:38] VITALS: BP 140/106; BP 165/85; BP 176/102; PULSE 59; PULSE 65; PULSE 90
[2018-03-12] MEDS: Aspirin 81 MG TAB.CHEW 324 MG PO (16:50)
[2018-03-12] MEDS: LORazepam 2 MG/ML Syringe 1 MG IV (16:51)
[2018-03-12 17:07] LABS: Absolute Lymphocyte Count 2.97 X10^3/ul (0.83-4.51); Absolute Neutrophil Count 4.4 X10^3/uL (2.0-7.7); Basophil# 0.04 X10^3/uL; Basophil% 0.5 % (0-1); Eosinophil# 0.12 X10^3/uL; Eosinophils% 1.5 % (0-5); Hematocrit 44.4 % (37-47); Hemoglobin 14.9 g/dl (12.0-15.0); Lymphocyte # 2.97 X10^3/ul (4.0); Lymphocyte % 36.8 % (19-41); Mean Corp Hgb Conc 33.6 g/gl (32-36); Mean Corpuscular Volume 92.5 fL (81-99); Mean Platelet Vol. 9.6 fl (6.2-12.0); Monocyte# 0.54 X10^3/uL; Monocyte% 6.7 % (0-10); Neutrophil # 4.38 X10^3/uL (2.7-7.7); Neutrophil % 54.4 % (47-70); Platelet Count 227 K/mm3 (150-450); RBC Distribution Width CV 12.7 % (11.6-14.6); RBC Distribution Width SD 42.7 fl (35.1-43.9); White Blood Count 8.1 K/mm3 (4.4-11.0)
[2018-03-12 17:09] LABS: POSITIVE COUNT NO; POSITIVE DIFFERENTIAL NO; POSITIVE MORPHOLOGY NO
[2018-03-12 17:18] VITALS: BP 160/88; PULSE 67; RESP 14; O2SAT 94
[2018-03-12 17:22] LABS: ALB/GLOB Ratio 0.9 RATIO (0.9-2.4); AST(SGOT) 15 U/L (15-37); Alanine Aminotransfer ALT/SGPT 14 U/L (13-56); Albumin, Serum 3.6 g/dL (3.2-5.0); Alkaline Phosphatase 117 U/L (45-117); Anion Gap 9 (5-15); BUN 7 mg/dL (7-18); BUN/Creat Ratio 9.2 RATIO (10-20); Calcium,Total 9.5 mg/dL (8.5-10.1); Chloride 105 mmol/L (98-107); Creatinine, Serum 0.76 mg/dL (0.55-1.02); EST Glomerular Filtration Rate 82 mL/min (>60); Est Glom Filt Rate - Afr Amer 100 mL/min (>60); Estimated Creatinine Clearance 72.77 ml/min; Globulin 4.1 g/dL (2.2-4.2); Glucose 92 mg/dL (74-106); Potassium 3.5 mmol/L (3.5-5.1); Protein, Total 7.7 g/dL (6.4-8.2); Sodium Level 142 mmol/L (136-145)
--- NOTE | 2018-03-12 17:49 | ED.VISSUMM ---
- ER Visit Summary Date of Service: 03/12/18 Chief Complaint: Chest pain and abdominal pain History of Present Illness: The patient is a [address] Best, Dr. Martinez, and Dr. Nayak. She reports that she has chest pain that began last night. States that it is a tightness that comes and goes. It lasts approximately 15 minutes at a time. Is not related to exertion. Is 5 out of 10 currently and 9 out of 10 at worst. She reports is been present for greater than the past 6 hours. She does report that she is mildly diaphoretic with this. She reports that she has a chronic cough that is unchanged and chronic shortness of breath that is unchanged as well. Patient also reports that she has upper abdominal pain that began last night. It is a constant pain that is 8 out of 10 in severity. She has had nausea without vomiting. She reports his nausea is been present for 1 week. Patient reports that she feels shaky and anxious. She is on Ativan and ran out yesterday. Physical Examination: Vitals: Stable. Afebrile. General: Well-nourished and well-developed. Head: Normocephalic atraumatic. Neck: Supple, no lymphadenopathy. No JVD. Nontender. Cardiovascular: Regular rate and rhythm. No murmurs. Respiratory: No respiratory distress. Clear to auscultation bilaterally. Abdominal: Soft, nontender, nondistended, normal bowel sounds. No guarding, rebound, or peritoneal signs. Back: Nontender. Extremities: Nontender, no edema. Skin: Normal color, no rash. Neurologic: Alert and oriented ?3. Cranial nerves II through XII are intact. Normal strength and sensation. Psych: Normal affect. Test Results: EKG is sinus at [address] changes. She does have T-wave inversions in V2 to V4. However, this is unchanged from December. CBC is normal. Chem-7 is normal. LFTs are normal. Troponin is negative. Chest x-ray shows chronic changes. Emergency Department Course and Treatment: Patient was treated with aspirin and GI cocktail p.o. She was given a dose of Ativan IV. She feels much improved. Treatment Plan: Patient had a heart catheterization in December that showed coronary artery disease that was not amenable to catheter based revascularization. She was supposed to have a stress test 1 month ago, but did not go to this. She will be discharged instructions to follow-up with Dr. Best as soon as possible. She will be given a prescription for Ativan to get her through to her appointment with her psychiatrist in 3 days. She will have Zantac added to her Nexium. Return to the emergency department for any worsening symptoms. Disposition: To home in improved and stable condition. Impression: 1. Atypical chest pain. 2. Abdominal pain, uncertain cause. 3. Anxiety. This note was generated with [employer] dictation software. It may contain incorrect words, spelling, and punctuation that were not noted in review of the chart prior to signing ED Disposition - Plan for ED Patient: Chief Complaint: General Illness Instructions: ED Chest Pain Atypical Unkn Cause, ED Abdominal Pain Unkn Cause Prescriptions: Ranitidine [Zantac] 300 mg PO DAILY #30 tablet Lorazepam [Ativan] 1 mg PO TID #10 tablet Referrals: Chucky Martinez MD [Primary Care Provider] - 3-5 Days if not improving Danny Best MD [STAFF PHYSICIAN] - As soon as possible Leatha Sinclair NP-Gigi [NON-STAFF] - Keep Marga appointment
[2018-03-12 17:54] VITALS: BP 178/95; PULSE 67; RESP 12; O2SAT 96
--- NOTE | 2018-03-12 17:54 | ED.DCSUM_ITS ---
- ER Visit Summary Date of Service: 03/12/18 Chief Complaint: Chest pain and abdominal pain History of Present Illness: The patient is a [address] Best, Dr. Martinez, and Dr. Nayak. She reports that she has chest pain that began last night. States that it is a tightness that comes and goes. It lasts approximately 15 minutes at a time. Is not related to exertion. Is 5 out of 10 currently and 9 out of 10 at worst. She reports is been present for greater than the past 6 hours. She does report that she is mildly diaphoretic with this. She reports that she has a chronic cough that is unchanged and chronic shortness of breath that is unchanged as well. Patient also reports that she has upper abdominal pain that began last night. It is a constant pain that is 8 out of 10 in severity. She has had nausea without vomiting. She reports his nausea is been present for 1 week. Patient reports that she feels shaky and anxious. She is on Ativan and ran out yesterday. Physical Examination: Vitals: Stable. Afebrile. General: Well-nourished and well-developed. Head: Normocephalic atraumatic. Neck: Supple, no lymphadenopathy. No JVD. Nontender. Cardiovascular: Regular rate and rhythm. No murmurs. Respiratory: No respiratory distress. Clear to auscultation bilaterally. Abdominal: Soft, nontender, nondistended, normal bowel sounds. No guarding, rebound, or peritoneal signs. Back: Nontender. Extremities: Nontender, no edema. Skin: Normal color, no rash. Neurologic: Alert and oriented ?3. Cranial nerves II through XII are intact. Normal strength and sensation. Psych: Normal affect. Test Results: EKG is sinus at [address] changes. She does have T- wave inversions in V2 to V4. However, this is unchanged from December. CBC is normal. Chem-7 is normal. LFTs are normal. Troponin is negative. Chest x- ray shows chronic changes. Emergency Department Course and Treatment: Patient was treated with aspirin and GI cocktail p.o. She was given a dose of Ativan IV. She feels much improved. Treatment Plan: Patient had a heart catheterization in December that showed coronary artery disease that was not amenable to catheter based revascularization. She was supposed to have a stress test 1 month ago, but did not go to this. She will be discharged instructions to follow-up with Dr. Best as soon as possible. She will be given a prescription for Ativan to get her through to her appointment with her psychiatrist in 3 days. She will have Zantac added to her Nexium. Return to the emergency department for any worsening symptoms. Disposition: To home in improved and stable condition. Impression: 1. Atypical chest pain. 2. Abdominal pain, uncertain cause. 3. Anxiety. This note was generated with [employer] dictation software. It may contain incorrect words, spelling, and punctuation that were not noted in review of the chart prior to signing ED Disposition - Plan for ED Patient: Chief Complaint: General Illness Instructions: ED Chest Pain Atypical Unkn Cause, ED Abdominal Pain Unkn Cause Prescriptions: Ranitidine [Zantac] 300 mg PO DAILY #30 tablet Lorazepam [Ativan] 1 mg PO TID #10 tablet Referrals: Chucky Martinez MD [Primary Care Provider] - 3-5 Days if not improving Danny Best MD [STAFF PHYSICIAN] - As soon as possible Leatha Sinclair NP-Gigi [NON-STAFF] - Keep Marga appointment
== END 2018-03-12 18:22 | disposition home or self-care (01) ==
PROVIDERS: Emergency Provider Emergency Medicine; Family Provider Family Medicine; PCP Family Medicine
DX: R07.89 Other chest pain (principal); R10.9 Unspecified abdominal pain; F41.9 Anxiety disorder, unspecified; I25.10 Atherosclerotic heart disease of native coronary artery without angina pectoris; I10 Essential (primary) hypertension; J44.9 Chronic obstructive pulmonary disease, unspecified; R11.0 Nausea; R00.2 Palpitations; K21.9 Gastro-esophageal reflux disease without esophagitis; I25.2 Old myocardial infarction; Z72.0 Tobacco use; Z79.82 Long term (current) use of aspirin; Z79.899 Other long term (current) drug therapy; Z87.442 Personal history of urinary calculi; Z86.73 Personal history of transient ischemic attack (TIA), and cerebral infarction without residual deficits
CPT/HCPCS: 71045; 80053; 84484; 85025; 93005; 96361; 96374; 99285; J7040

== ENCOUNTER 2018-04-29 14:43 | Emergency (ER) | payer MEDICARE, SELFPAY ==
[2018-04-29 14:45] VITALS: BP 149/97; PULSE 55; RESP 16; TEMP 36.8; O2SAT 97; BMI 28.9
--- NOTE | 2018-04-29 15:14 | RAD_ITS ---
RAD/Chest 1 View (Portable) IMPRESSION: Stable increased markings in the right upper lobe. Electronically Signed: Desmond Mojica MD at 15:34 EDT Tel [phone], Service support ,
[2018-04-29] MEDS: Morphine 4 MG/ML Syringe IV (15:29)
[2018-04-29] MEDS: 0.9% Normal Saline 1,000 ML 1000 ML IV (15:29)
[2018-04-29] MEDS: Ondansetron 4 MG/2 ML Vial IV (15:29)
[2018-04-29 15:30] LABS: Bacteria 0 SEEN /hpf (None Seen); Mucous, Urine 0 SEEN /hpf (<or=2+)
[2018-04-29 15:36] LABS: Absolute Lymphocyte Count 2.51 X10^3/ul (0.83-4.51); Absolute Neutrophil Count 4.1 X10^3/uL (2.0-7.7); Basophil# 0.05 X10^3/uL; Basophil% 0.7 % (0-1); Eosinophil# 0.17 X10^3/uL; Eosinophils% 2.3 % (0-5); Hematocrit 38.9 % (37-47); Hemoglobin 13.1 g/dl (12.0-15.0); Lymphocyte # 2.51 X10^3/ul (4.0); Lymphocyte % 33.6 % (19-41); Mean Corp Hgb Conc 33.7 g/gl (32-36); Mean Corpuscular Volume 94.9 fL (81-99); Mean Platelet Vol. 9.4 fl (6.2-12.0); Monocyte# 0.61 X10^3/uL; Monocyte% 8.2 % (0-10); Neutrophil # 4.13 X10^3/uL (2.7-7.7); Neutrophil % 55.1 % (47-70); Platelet Count 256 K/mm3 (150-450); RBC Distribution Width CV 12.8 % (11.6-14.6); RBC Distribution Width SD 43.1 fl (35.1-43.9); White Blood Count 7.5 K/mm3 (4.4-11.0)
--- NOTE | 2018-04-29 15:36 | ED.VISSUMM ---
- ER Visit Summary Date of Service: 04/29/18 Chief Complaint: Sick History of Present Illness: The patient is a 62 F with history of coronary artery disease, [place], COPD and chronic pain in pain management who presents for feeling sick for 1 week. Patient states that her daughter normally gives her her medications, but there is been a recent mixup and disagreement between them, and her medications got lost. Patient has not had her Ativan or her blood thinner in 1 week. For the last week patient has been having cold sweats, dizziness, feeling like she is going to pass out, weakness, and now hematuria and frequency with low back pain. So complains of palpitations since last night. She has chronic nausea but no new chest pain, shortness of breath or new abdominal pain or nausea. She denies a measured fever. She denies any bowel or bladder incontinence or retention. No numbness or weakness in the arms or legs. No history of IV drug use, back surgery, or known cancer. Patient is a smoker. Physical Examination: Vital signs: afebrile, hemodynamically stable, no hypoxia on room air General: well nourished, well developed, in no distress, tearful Skin: warm, dry, no rash, no pallor HEENT: normocephalic and atraumatic; PERRL, EOMI, moist mucous membranes Cardiovascular: regular rate and rhythm without murmurs, no peripheral edema, 2+ pulses all distal extremities Respiratory: No increased work of breathing, lungs are clear to auscultation bilaterally, no rales, rhonchi or wheezing Abdominal: Abdomen is soft, nontender with normoactive bowel sounds, no guarding or rebound, no masses, no CVA tenderness MSK: Moves all extremities, no deformities, normal strength, tenderness in the lumbar mid back region, no worse tenderness left or right Neuro: Awake and alert, oriented ?4. No facial droop, sensation and motor function intact and symmetric Test Results: Abnormal Lab Results 04/29/18 04/29/18 04/29/18 15:20 15:20 15:21 WBC 7.5 RBC 4.10 L Hgb 13.1 Hct 38.9 MCV 94.9 MCH 32.0 MCHC 33.7 RDW 12.8 RDW Differential 43.1 Plt Count 256 MPV 9.4 Immature Gran % (Auto) 0.100 Neut % (Auto) 55.1 Lymph % (Auto) 33.6 [place] % (Auto) 8.2 Eos % (Auto) 2.3 Baso % (Auto) 0.7 Absolute Neuts (auto) 4.1 Absolute Lymphs (auto) 2.51 Total Counted Not Reportable PT INR APTT Sodium Potassium Chloride Carbon Dioxide Anion Gap BUN Creatinine Estim Creat Clear Calc Est GFR (MDRD) Af Amer Est GFR (MDRD) Non-Af BUN/Creatinine Ratio Glucose Calcium Total Bilirubin AST ALT Alkaline Phosphatase Troponin I Total Protein Albumin Globulin Albumin/Globulin Ratio Lipase Urine Color Yellow Urine Clarity Clear Urine pH 6.0 Ur Specific [place] 1.020 Urine Protein Negative Urine Glucose (UA) Normal Urine Ketones Negative Urine Occult Blood 25 H Urine Nitrite Negative Urine Bilirubin Negative Urine Urobilinogen Normal Ur Leukocyte Esterase 25 H Urine RBC 0-5 SEEN Urine WBC 0-5 SEEN Ur Squamous Epith Cells 0-5 SEEN Urine Bacteria 0 SEEN Urine Mucus 0 SEEN Urine Opiates Screen POSITIVE H Urine Methadone Screen NEGATIVE Ur Barbiturates Screen NEGATIVE Ur Phencyclidine Scrn NEGATIVE Ur Amphetamines Screen NEGATIVE U Methamphetamin-MDMA NEGATIVE U Benzodiazepines Scrn NEGATIVE Urine Cocaine Screen NEGATIVE U Cannabinoids Screen NEGATIVE Ur Drug Screen Comment 04/29/18 04/29/18 15:21 15:21 WBC RBC Hgb Hct MCV MCH MCHC RDW RDW Differential Plt Count MPV Immature Gran % (Auto) Neut % (Auto) Lymph % (Auto) [place] % (Auto) Eos % (Auto) Baso % (Auto) Absolute Neuts (auto) Absolute Lymphs (auto) Total Counted PT 13.4 INR 1.0 APTT 32.1 Sodium 140 Potassium 4.0 Chloride 105 Carbon Dioxide 27.0 Anion Gap 8 BUN 15 Creatinine 0.78 Estim Creat Clear Calc 70.90 Est GFR (MDRD) Af Amer 97 Est GFR (MDRD) Non-Af 80 BUN/Creatinine Ratio 19.3 Glucose 87 Calcium 9.3 Total Bilirubin 0.40 AST 9 L ALT 11 L Alkaline Phosphatase 116 Troponin I < 0.015 Total Protein 7.2 Albumin 3.5 Globulin 3.7 Albumin/Globulin Ratio 0.9 Lipase 68 L Urine Color Urine Clarity Urine pH Ur Specific [place] Urine Protein Urine Glucose (UA) Urine Ketones Urine Occult Blood Urine Nitrite Urine Bilirubin Urine Urobilinogen Ur Leukocyte Esterase Urine RBC Urine WBC Ur Squamous Epith Cells Urine Bacteria Urine Mucus Urine Opiates Screen Urine Methadone Screen Ur Barbiturates Screen Ur Phencyclidine Scrn Ur Amphetamines Screen U Methamphetamin-MDMA U Benzodiazepines Scrn Urine Cocaine Screen U Cannabinoids Screen Ur Drug Screen Comment Clinical Impression(s) from Imaging Studies Chest X-Ray 04/29/18 15:14 IMPRESSION: Stable increased markings in the right upper lobe. Electronically Signed: Desmond Mojica MD at 15:34 EDT Tel [phone], Service support , Abdomen/Pelvis CT 04/29/18 15:16 IMPRESSION: Right-sided hydroureter secondary to a 5 mm calculus within the distal ureter. Bilateral nonobstructing calculi measuring up to 3.8 mm within the right kidney. Colonic diverticulosis. Atherosclerosis. Gastric wall thickening which may be secondary to its incompletely distended state however cannot exclude a history of gastritis. Electronically Signed: Hue Lakhani MD at 16:18 EDT Tel , Service support , Medications Given Discontinued Medications Sodium Chloride () 1,000 mls @ 1,000 mls/hr IV .Q1H ONE Stop: 04/29/18 16:13 Last Admin: 04/29/18 15:29 Dose: 1,000 mls/hr Ketorolac Tromethamine (Toradol) 15 mg IV X1 ONE Stop: 04/29/18 16:39 Lorazepam (Ativan) 1 mg PO X1 ONE Stop: 04/29/18 16:40 Morphine Sulfate () 4 mg IV X1 ONE Stop: 04/29/18 15:15 Last Admin: 04/29/18 15:29 Dose: 4 mg Ondansetron HCl (Zofran) 4 mg IV X1 ONE Stop: 04/29/18 15:15 Last Admin: 04/29/18 15:29 Dose: 4 mg Emergency Department Course and Treatment: Patient presents with multiple vague complaints, including general malaise and cold sweats that corresponded to her stopping taking Ativan due to loss of medication. Patient is also complaining of blood in her urine and new low back pain for 1 day. Workup was performed to evaluate for possible urinary infection or kidney stone. Patient had no renal dysfunction on lab work. Urine was negative for infection. CT scan showed a 5 mm distal right ureteral stone with mild hydro-ureter. Patient received morphine and Zofran for symptomatic relief as well as IV fluids. Given that she has multiple medical complaints and the vague other symptoms, workup was performed to look for alternative causes of her symptoms other than benzodiazepine withdrawal, although this is likely what it is. EKG showed a sinus rhythm without any changes from baseline. Chest x-ray showed no process. Troponin negative. No electrolyte derangements, leukocytosis or significant anemia. Patient was feeling much better on reevaluation. Oars report was performed and patient does receive consistent Ativan and opiate prescriptions from the same medical office for chronic pain and anxiety. I discussed with the patient that I cannot replace her Ativan prescription, as she is outside the window of life-threatening side effects from withdrawal and thus it would not be appropriate for me to give her a prescription with her having a regular prescriber and pain management physician. Strongly encouraged to follow-up as soon as possible with her doctor that prescribes her Ativan and opiates to discuss possible alternatives or replacement prescription. She was given follow-up with urology as she has had kidney stones in the past, with one requiring a stent. Patient was given a urine strainer. She was discarded discharged home with a prescription for naproxen to augment her pain medications for her new pain associated with the kidney stone. She was given a dose of Toradol prior to discharge and 1 dose of oral Ativan. Patient discharged home with family in improved condition. Treatment Plan: [] Disposition: discharge home Impression: 5mm R ureteral stone with renal colic, benzodiapine withdrawal This note was generated with [employer] dictation software. It may contain incorrect words, spelling, and punctuation that were not noted in review of the chart prior to signing ED Disposition - Plan for ED Patient: Disposition: Home or Assisted Living Chief Complaint: Weakness Instructions: ED Strainer Urine, ED Stone Renal W Colic, ED Withdrawal Benzodiazepine Prescriptions: Naproxen [Naprosyn] 500 mg PO BID PRN #20 tab Referrals: Oly Mo MD [STAFF PHYSICIAN] - 3-5 Days if not improving Chucky Martinez MD [Primary Care Provider] - Additional Instructions: You have a kidney stone near your bladder on the right side, which is why you are having blood in your urine and the new low back pain. You may use the naproxen to help with your pain related to the stone. Please strain your urine and follow up with the urologist, given your history of kidney stones. Your cold sweats and feeling generally ill are likely due to not taking your ativan for one week. Follow-up with your doctor's office that prescribes your Ativan as soon as possible to discuss a replacement prescription. Unfortunately we are not allowed to provide you one due to [place] law. If you have any worsening of your condition or any new concerning symptoms, please return immediately to the emergency department for another evaluation.
[2018-04-29 15:37] LABS: Color, Urine Yellow (Yellow); Glucose, Dipstick Normal (Normal); Ketone-Dipstick Negative (Negative); Leukocyte Esterase-Dipstick 25 /ul (Negative); Nitrite-Dipstick Negative (Negative); Occult Blood-Urine 25 /ul (Negative); Protein-Dipstick Negative (Negative); Urine Bilirubin Dipstick Negative (Negative); Urine Clarity Clear (Clear); Urine Urobilinogen Normal (Normal)
[2018-04-29 15:39] LABS: POSITIVE COUNT NO; POSITIVE DIFFERENTIAL NO; POSITIVE MORPHOLOGY NO
[2018-04-29 15:42] LABS: Partial Thromboplast Time 32.1 Seconds (24.1-36.2); Prothrombin Time (Protime)PT. 13.4 SECONDS (11.7-14.9)
--- NOTE | 2018-04-29 15:42 | ED.DCSUM_ITS ---
- ER Visit Summary Date of Service: 04/29/18 Chief Complaint: Sick History of Present Illness: The patient is a 62 F with history of coronary artery disease, [place], COPD and chronic pain in pain management who presents for feeling sick for 1 week. Patient states that her daughter normally gives her her medications, but there is been a recent mixup and disagreement between them , and her medications got lost. Patient has not had her Ativan or her blood thinner in 1 week. For the last week patient has been having cold sweats, dizziness, feeling like she is going to pass out, weakness, and now hematuria and frequency with low back pain. So complains of palpitations since last night. She has chronic nausea but no new chest pain, shortness of breath or new abdominal pain or nausea. She denies a measured fever. She denies any bowel or bladder incontinence or retention. No numbness or weakness in the arms or legs. No history of IV drug use, back surgery, or known cancer. Patient is a smoker. Physical Examination: Vital signs: afebrile, hemodynamically stable, no hypoxia on room air General: well nourished, well developed, in no distress, tearful Skin: warm, dry, no rash, no pallor HEENT: normocephalic and atraumatic; PERRL, EOMI, moist mucous membranes Cardiovascular: regular rate and rhythm without murmurs, no peripheral edema, 2 + pulses all distal extremities Respiratory: No increased work of breathing, lungs are clear to auscultation bilaterally, no rales, rhonchi or wheezing Abdominal: Abdomen is soft, nontender with normoactive bowel sounds, no guarding or rebound, no masses, no CVA tenderness MSK: Moves all extremities, no deformities, normal strength, tenderness in the lumbar mid back region, no worse tenderness left or right Neuro: Awake and alert, oriented ?4. No facial droop, sensation and motor function intact and symmetric Test Results: Abnormal Lab Results 04/29/18 04/29/18 04/29/18 15:20 15:20 15:21 WBC 7.5 RBC 4.10 L Hgb 13.1 Hct 38.9 MCV 94.9 MCH 32.0 MCHC 33.7 RDW 12.8 RDW Differential 43.1 Plt Count 256 MPV 9.4 Immature Gran % (Auto) 0.100 Neut % (Auto) 55.1 Lymph % (Auto) 33.6 [place] % (Auto) 8.2 Eos % (Auto) 2.3 Baso % (Auto) 0.7 Absolute Neuts (auto) 4.1 Absolute Lymphs (auto) 2.51 Total Counted Not Reportable PT INR APTT Sodium Potassium Chloride Carbon Dioxide Anion Gap BUN Creatinine Estim Creat Clear Calc Est GFR (MDRD) Af Amer Est GFR (MDRD) Non-Af BUN/Creatinine Ratio Glucose Calcium Total Bilirubin AST ALT Alkaline Phosphatase Troponin I Total Protein Albumin Globulin Albumin/Globulin Ratio Lipase Urine Color Yellow Urine Clarity Clear Urine pH 6.0 Ur Specific [place] 1.020 Urine Protein Negative Urine Glucose (UA) Normal Urine Ketones Negative Urine Occult Blood 25 H Urine Nitrite Negative Urine Bilirubin Negative Urine Urobilinogen Normal Ur Leukocyte Esterase 25 H Urine RBC 0-5 SEEN Urine WBC 0-5 SEEN Ur Squamous Epith Cells 0-5 SEEN Urine Bacteria 0 SEEN Urine Mucus 0 SEEN Urine Opiates Screen POSITIVE H Urine Methadone Screen NEGATIVE Ur Barbiturates Screen NEGATIVE Ur Phencyclidine Scrn NEGATIVE Ur Amphetamines Screen NEGATIVE U Methamphetamin-MDMA NEGATIVE U Benzodiazepines Scrn NEGATIVE Urine Cocaine Screen NEGATIVE U Cannabinoids Screen NEGATIVE Ur Drug Screen Comment 04/29/18 04/29/18 15:21 15:21 WBC RBC Hgb Hct MCV MCH MCHC RDW RDW Differential Plt Count MPV Immature Gran % (Auto) Neut % (Auto) Lymph % (Auto) [place] % (Auto) Eos % (Auto) Baso % (Auto) Absolute Neuts (auto) Absolute Lymphs (auto) Total Counted PT 13.4 INR 1.0 APTT 32.1 Sodium 140 Potassium 4.0 Chloride 105 Carbon Dioxide 27.0 Anion Gap 8 BUN 15 Creatinine 0.78 Estim Creat Clear Calc 70.90 Est GFR (MDRD) Af Amer 97 Est GFR (MDRD) Non-Af 80 BUN/Creatinine Ratio 19.3 Glucose 87 Calcium 9.3 Total Bilirubin 0.40 AST 9 L ALT 11 L Alkaline Phosphatase 116 Troponin I < 0.015 Total Protein 7.2 Albumin 3.5 Globulin 3.7 Albumin/Globulin Ratio 0.9 Lipase 68 L Urine Color Urine Clarity Urine pH Ur Specific [place] Urine Protein Urine Glucose (UA) Urine Ketones Urine Occult Blood Urine Nitrite Urine Bilirubin Urine Urobilinogen Ur Leukocyte Esterase Urine RBC Urine WBC Ur Squamous Epith Cells Urine Bacteria Urine Mucus Urine Opiates Screen Urine Methadone Screen Ur Barbiturates Screen Ur Phencyclidine Scrn Ur Amphetamines Screen U Methamphetamin-MDMA U Benzodiazepines Scrn Urine Cocaine Screen U Cannabinoids Screen Ur Drug Screen Comment Clinical Impression(s) from Imaging Studies Chest X-Ray 04/29/18 15:14 IMPRESSION: Stable increased markings in the right upper lobe. Electronically Signed: Desmond Mojica MD at 15:34 EDT Tel [phone], Service support , Abdomen/Pelvis CT 04/29/18 15:16 IMPRESSION: Right-sided hydroureter secondary to a 5 mm calculus within the distal ureter. Bilateral nonobstructing calculi measuring up to 3.8 mm within the right kidney. Colonic diverticulosis. Atherosclerosis. Gastric wall thickening which may be secondary to its incompletely distended state however cannot exclude a history of gastritis. Electronically Signed: Hue Lakhani MD at 16:18 EDT Tel , Service support , Medications Given Discontinued Medications Sodium Chloride () 1,000 mls @ 1,000 mls/hr IV .Q1H ONE Stop: 04/29/18 16:13 Last Admin: 04/29/18 15:29 Dose: 1,000 mls/hr Ketorolac Tromethamine (Toradol) 15 mg IV X1 ONE Stop: 04/29/18 16:39 Lorazepam (Ativan) 1 mg PO X1 ONE Stop: 04/29/18 16:40 Morphine Sulfate () 4 mg IV X1 ONE Stop: 04/29/18 15:15 Last Admin: 04/29/18 15:29 Dose: 4 mg Ondansetron HCl (Zofran) 4 mg IV X1 ONE Stop: 04/29/18 15:15 Last Admin: 04/29/18 15:29 Dose: 4 mg Emergency Department Course and Treatment: Patient presents with multiple vague complaints, including general malaise and cold sweats that corresponded to her stopping taking Ativan due to loss of medication. Patient is also complaining of blood in her urine and new low back pain for 1 day. Workup was performed to evaluate for possible urinary infection or kidney stone. Patient had no renal dysfunction on lab work. Urine was negative for infection. CT scan showed a 5 mm distal right ureteral stone with mild hydro-ureter. Patient received morphine and Zofran for symptomatic relief as well as IV fluids. Given that she has multiple medical complaints and the vague other symptoms, workup was performed to look for alternative causes of her symptoms other than benzodiazepine withdrawal, although this is likely what it is. EKG showed a sinus rhythm without any changes from baseline. Chest x-ray showed no process. Troponin negative. No electrolyte derangements, leukocytosis or significant anemia. Patient was feeling much better on reevaluation. Oars report was performed and patient does receive consistent Ativan and opiate prescriptions from the same medical office for chronic pain and anxiety. I discussed with the patient that I cannot replace her Ativan prescription, as she is outside the window of life-threatening side effects from withdrawal and thus it would not be appropriate for me to give her a prescription with her having a regular prescriber and pain management physician. Strongly encouraged to follow-up as soon as possible with her doctor that prescribes her Ativan and opiates to discuss possible alternatives or replacement prescription. She was given follow -up with urology as she has had kidney stones in the past, with one requiring a stent. Patient was given a urine strainer. She was discarded discharged home with a prescription for naproxen to augment her pain medications for her new pain associated with the kidney stone. She was given a dose of Toradol prior to discharge and 1 dose of oral Ativan. Patient discharged home with family in improved condition. Treatment Plan: [] Disposition: discharge home Impression: 5mm R ureteral stone with renal colic, benzodiapine withdrawal This note was generated with [employer] dictation software. It may contain incorrect words, spelling, and punctuation that were not noted in review of the chart prior to signing ED Disposition - Plan for ED Patient: Disposition: Home or Assisted Living Chief Complaint: Weakness Instructions: ED Strainer Urine, ED Stone Renal W Colic, ED Withdrawal Benzodiazepine Prescriptions: Naproxen [Naprosyn] 500 mg PO BID PRN #20 tab Referrals: Oly Mo MD [STAFF PHYSICIAN] - 3-5 Days if not improving Chucky Martinez MD [Primary Care Provider] - Additional Instructions: You have a kidney stone near your bladder on the right side, which is why you are having blood in your urine and the new low back pain. You may use the naproxen to help with your pain related to the stone. Please strain your urine and follow up with the urologist, given your history of kidney stones. Your cold sweats and feeling generally ill are likely due to not taking your ativan for one week. Follow-up with your doctor's office that prescribes your Ativan as soon as possible to discuss a replacement prescription. Unfortunately we are not allowed to provide you one due to [place] law. If you have any worsening of your condition or any new concerning symptoms, please return immediately to the emergency department for another evaluation.
[2018-04-29 15:49] LABS: Squamous Epithelial Cells - UA 0-5 SEEN /hpf (5-10)
[2018-04-29 15:50] LABS: ALB/GLOB Ratio 0.9 RATIO (0.9-2.4); AST(SGOT) 9 U/L (15-37); Alanine Aminotransfer ALT/SGPT 11 U/L (13-56); Albumin, Serum 3.5 g/dL (3.2-5.0); Alkaline Phosphatase 116 U/L (45-117); Anion Gap 8 (5-15); BUN 15 mg/dL (7-18); BUN/Creat Ratio 19.3 RATIO (10-20); Calcium,Total 9.3 mg/dL (8.5-10.1); Chloride 105 mmol/L (98-107); Creatinine, Serum 0.78 mg/dL (0.55-1.02); EST Glomerular Filtration Rate 80 mL/min (>60); Est Glom Filt Rate - Afr Amer 97 mL/min (>60); Globulin 3.7 g/dL (2.2-4.2); Glucose 87 mg/dL (74-106); Lipase 68 U/L (73-393); Protein, Total 7.2 g/dL (6.4-8.2); Sodium Level 140 mmol/L (136-145)
[2018-04-29 15:51] LABS: Red Blood Cells-Urine 0-5 SEEN /hpf (0-5); White Blood Cells 0-5 SEEN /hpf (0-5)
[2018-04-29 16:06] LABS: Amphetamine Urine VISTA NEGATIVE (<1000 ng/mL); Barbiturate Urine VISTA NEGATIVE (< 200 ng/mL); Benzodiazepine Urine VISTA NEGATIVE (< 200 ng/mL); Cocaine Urine VISTA NEGATIVE (< 300 ng/mL); Ecstacy Urine VISTA NEGATIVE (< 500 ng/mL); Methadone Urine VISTA NEGATIVE (< 300 ng/mL); PCP Urine VISTA NEGATIVE (< 25 ng/mL); THC Urine VISTA NEGATIVE (< 50 ng/mL); Vista UDS pH Range 5
--- NOTE | 2018-04-29 16:40 | ED.DEP ---
ED Disposition - Plan for ED Patient: Disposition: Home or Assisted Living Chief Complaint: Weakness Instructions: ED Strainer Urine, ED Stone Renal W Colic, ED Withdrawal Benzodiazepine Prescriptions: Naproxen [Naprosyn] 500 mg PO BID PRN #20 tab Referrals: Chucky Martinez MD [Primary Care Provider] - Oly Mo MD [STAFF PHYSICIAN] - 3-5 Days if not improving Additional Instructions: You have a kidney stone near your bladder on the right side, which is why you are having blood in your urine and the new low back pain. You may use the naproxen to help with your pain related to the stone. Please strain your urine and follow up with the urologist, given your history of kidney stones. Your cold sweats and feeling generally ill are likely due to not taking your ativan for one week. Follow-up with your doctor's office that prescribes your Ativan as soon as possible to discuss a replacement prescription. Unfortunately we are not allowed to provide you one due to [place] law. If you have any worsening of your condition or any new concerning symptoms, please return immediately to the emergency department for another evaluation.
[2018-04-29 16:57] VITALS: BP 151/79; PULSE 57; RESP 16; O2SAT 97
[2018-04-29] MEDS: LORazepam 1 MG Tablet PO (16:58)
[2018-04-29] MEDS: Ketorolac 15 MG/ML Vial IV (16:58)
[2018-04-29 17:17] VITALS: BP 150/90; PULSE 60; RESP 16
== END 2018-04-29 17:19 | disposition home or self-care (01) ==
PROVIDERS: Emergency Provider Emergency Medicine; Family Provider Family Medicine; PCP Family Medicine
DX: N13.2 Hydronephrosis with renal and ureteral calculous obstruction (principal); R31.9 Hematuria, unspecified; F13.239 Sedative, hypnotic or anxiolytic dependence with withdrawal, unspecified; I49.3 Ventricular premature depolarization; I25.10 Atherosclerotic heart disease of native coronary artery without angina pectoris; J44.9 Chronic obstructive pulmonary disease, unspecified; M54.5 Low back pain; G89.29 Other chronic pain; F17.210 Nicotine dependence, cigarettes, uncomplicated; I25.2 Old myocardial infarction; Z79.82 Long term (current) use of aspirin; Z79.899 Other long term (current) drug therapy; Z87.442 Personal history of urinary calculi
CPT/HCPCS: 71045; 74176; 80053; 80307; 81001; 83690; 84484; 85025; 85610; 85730; 87086; 87088; 93005; 96361; 96374; 96375; 99285; J7030; A4216; J2405

== ENCOUNTER 2018-05-04 22:44 | Emergency (ER) | payer MEDICARE, SELFPAY ==
[2018-05-04 22:46] VITALS: BP 150/87; PULSE 61; RESP 16; TEMP 36.8; O2SAT 97; BMI 28.2
[2018-05-04] MEDS: Ondansetron 4 MG/2 ML Vial IV (23:18)
[2018-05-04] MEDS: LORazepam 0.5 MG Tablet PO (23:18)
[2018-05-04] MEDS: Ketorolac 30 MG/ML Syringe IV (23:18)
[2018-05-04] MEDS: 0.9% Normal Saline 1,000 ML 150 ML IV (23:18)
[2018-05-04 23:21] LABS: Absolute Lymphocyte Count 4.15 X10^3/ul (0.83-4.51); Absolute Neutrophil Count 3.4 X10^3/uL (2.0-7.7); Basophil# 0.04 X10^3/uL; Basophil% 0.5 % (0-1); Eosinophil# 0.15 X10^3/uL; Eosinophils% 1.8 % (0-5); Hematocrit 40.9 % (37-47); Hemoglobin 13.7 g/dl (12.0-15.0); Lymphocyte # 4.15 X10^3/ul (4.0); Lymphocyte % 50.3 % (19-41); Mean Corp Hgb Conc 33.5 g/gl (32-36); Mean Corpuscular Hgb 31.3 pg (27.0-32.0); Mean Corpuscular Volume 93.4 fL (81-99); Mean Platelet Vol. 9.4 fl (6.2-12.0); Monocyte# 0.52 X10^3/uL; Monocyte% 6.3 % (0-10); Neutrophil # 3.38 X10^3/uL (2.7-7.7); POSITIVE COUNT NO; POSITIVE DIFFERENTIAL NO; POSITIVE MORPHOLOGY NO; Platelet Count 243 K/mm3 (150-450); RBC Distribution Width CV 12.9 % (11.6-14.6); RBC Distribution Width SD 43.7 fl (35.1-43.9); Red Blood Count 4.38 M/mm3 (4.2-5.4); White Blood Count 8.3 K/mm3 (4.4-11.0)
[2018-05-04 23:34] LABS: AST(SGOT) 10 U/L (15-37); Alanine Aminotransfer ALT/SGPT 12 U/L (13-56); Albumin, Serum 3.3 g/dL (3.2-5.0); Alkaline Phosphatase 103 U/L (45-117); Anion Gap 7 (5-15); BUN 9 mg/dL (7-18); BUN/Creat Ratio 11.7 RATIO (10-20); Bilirubin, Direct 0.08 mg/dL (0.00-0.30); Calcium,Total 9.3 mg/dL (8.5-10.1); Chloride 109 mmol/L (98-107); Creatinine, Serum 0.77 mg/dL (0.55-1.02); EST Glomerular Filtration Rate 81 mL/min (>60); Est Glom Filt Rate - Afr Amer 98 mL/min (>60); Estimated Creatinine Clearance 71.83 ml/min; Globulin 3.7 g/dL (2.2-4.2); Glucose 94 mg/dL (74-106); Lipase 74 U/L (73-393); Potassium 3.6 mmol/L (3.5-5.1); Sodium Level 142 mmol/L (136-145)
[2018-05-05 00:18] LABS: Color, Urine Yellow (Yellow); Glucose, Dipstick Normal (Normal); Ketone-Dipstick 5 mg/dl (Negative); Leukocyte Esterase-Dipstick 100 /ul (Negative); Nitrite-Dipstick Negative (Negative); Occult Blood-Urine 25 /ul (Negative); Protein-Dipstick 30 mg/dl (Negative); Specific Gravity, Urine 1.025 (1.002-1.030); Urine Clarity Sl. Cloudy (Clear); Urine Urobilinogen 1 mg/dl (Normal)
[2018-05-05 00:19] LABS: Urine Bilirubin Dipstick 1 mg/dL (Negative)
[2018-05-05 00:28] LABS: Bacteria RARE /hpf (None Seen); Mucous, Urine 1+ /hpf (<or=2+); Red Blood Cells-Urine 0-5 SEEN /hpf (0-5); Squamous Epithelial Cells - UA 0-5 SEEN /hpf (5-10); White Blood Cells 5-10 SEEN /hpf (0-5)
[2018-05-05] MEDS: oxyCODONE 5 MG Tablet PO (00:32)
--- NOTE | 2018-05-05 01:27 | ED.VISSUMM ---
- ER Visit Summary Date of Service: 05/05/18 Chief Complaint: Kidney stones History of Present Illness: The patient is a 62 F who was seen in the ER on April 29 with multiple vague complaints. It was felt the patient likely had mild benzodiazepine withdrawal as she had lost her Ativan and has been on it for quite some time. She is also found to have a right sided ureteral stone. Patient returns tonight stating that she still does not feel well. She is complaining of right chest pain, right upper quadrant pain, cold chills. She denies blood in her urine. Patient states that she was able to contact her doctor's office, but the doctor who writes her Ativan cannot see her until next week. Physical Examination: Vital signs significant for blood pressure 150/87, otherwise unremarkable. Patient sitting upright in bed no acute distress. Head neck examination is normal. Heart is regular rate and rhythm. Lung sounds are clear. She does have mild right chest wall tenderness. No crepitus. Abdomen is soft with mild right upper quadrant tenderness to palpation. There is no guarding or rebound. Active bowel sounds are noted throughout. Back examination was no CVA tenderness. She has mild tenderness in the lower right lumbar paraspinals. No overlying skin changes noted. Neuro exam is unremarkable. Test Results: EKG is sinus bradycardia 57 bpm. No sign of acute ischemia. Chest x-ray shows borderline cardiomegaly. CBC and chemistry studies normal. LFTs and lipase normal. Troponin is negative. Urinalysis shows no sign of acute infection. CT flank shows punctate stones in the right kidney. The distention of the right ureter that was previously seen is no longer present. There is still a bit years to be a visualized stone in the right pelvis. This may be in the blood vessel next to the ureter as the distention of the ureter is now resolved. She may have had a smaller kidney stone that has since passed resulting in the resolution of the ureteral distention. Emergency Department Course and Treatment: Patient was given Toradol, Ativan, Zofran. This is followed by a single dose of her oxycodone which she was due for. Test results were discussed with her at length. At this time I believe her symptoms are still secondary to the benzodiazepine withdrawal. I advised her that I would not write her a prescription for this. She is beyond the dangerous timeframe of acute withdrawal. She is to follow-up with her doctor next week. She is given a prescription for Zofran at home. Treatment Plan: [] Disposition: Discharge Impression: 1. Myalgias 2. Benzodiazepine withdrawal This note was generated with [employer] dictation software. It may contain incorrect words, spelling, and punctuation that were not noted in review of the chart prior to signing ED Disposition - Plan for ED Patient: Disposition: Home or Assisted Living Chief Complaint: Flank Pain Instructions: ED Muscle Aching, ED Withdrawal Benzodiazepine Prescriptions: Ondansetron [Zofran Odt] 4 mg PO Q8H PRN PRN #10 tablet PRN Reason: Nausea Referrals: Chucky Martinez MD [Primary Care Provider] -
[2018-05-05] MEDS: LORazepam 0.5 MG Tablet PO (01:40)
[2018-05-05 01:46] VITALS: BP 132/80; PULSE 61; RESP 12; O2SAT 96
== END 2018-05-05 01:48 | disposition home or self-care (01) ==
PROVIDERS: Emergency Provider Emergency Medicine; Family Provider Family Medicine; PCP Family Medicine
DX: M79.1 Myalgia (principal); F13.239 Sedative, hypnotic or anxiolytic dependence with withdrawal, unspecified; R00.1 Bradycardia, unspecified; I25.10 Atherosclerotic heart disease of native coronary artery without angina pectoris; J44.9 Chronic obstructive pulmonary disease, unspecified; I10 Essential (primary) hypertension; K21.9 Gastro-esophageal reflux disease without esophagitis; Z72.0 Tobacco use; Z79.82 Long term (current) use of aspirin; Z79.891 Long term (current) use of opiate analgesic; Z79.1 Long term (current) use of non-steroidal anti-inflammatories (NSAID); Z79.899 Other long term (current) drug therapy; I25.2 Old myocardial infarction; Z86.73 Personal history of transient ischemic attack (TIA), and cerebral infarction without residual deficits
CPT/HCPCS: 71046; 74176; 80048; 80076; 81001; 83690; 84484; 85025; 93005; 96361; 96374; 96375; 99285; J7030; A4216; J2405

== ENCOUNTER 2018-07-21 15:25 | Observation (INO) | payer MEDICARE, SELFPAY ==
[2018-07-21] VITALS (10 sets, daily range): BP systolic 98–168; BP diastolic 54–102; PULSE 58–94; RESP 12–19; TEMP 36.4–36.7; O2SAT 89–96; BMI 29.0; BMI 30.3
--- NOTE | 2018-07-21 15:44 | EKG12_ITS ---
Test Reason : ADM EKG Blood Pressure : / mmHG Vent. Rate : 063 BPM Atrial Rate : 063 BPM P-R Int : 130 ms QRS Dur : 106 ms QT Int : 414 ms P-R-T Axes : 046 026 059 degrees QTc Int : 423 ms Normal sinus rhythm T wave abnormality, consider anterior ischemia Abnormal ECG When compared with ECG of 21-JUL-2018 15:55, MANUAL COMPARISON REQUIRED, DATA IS UNCONFIRMED Confirmed by CECI MARTINEZ, GEO ([id number]), publications editor LOPEZ VERA ([id number]) on 07/26/2018 1:50:48 PM Referred By: Thor Daniel Confirmed By:GEO ORNELAS MD
[2018-07-21] MEDS: Morphine 4 MG/ML Syringe IV (16:12)
[2018-07-21] MEDS: 0.9% Normal Saline 1,000 ML 150 ML IV ×2 (16:12→20:33)
[2018-07-21] MEDS: Ondansetron 4 MG/2 ML Vial IV (16:13)
[2018-07-21 16:18] LABS: Absolute Lymphocyte Count 3.12 X10^3/ul (0.83-4.51); Absolute Neutrophil Count 3.8 X10^3/uL (2.0-7.7); Basophil# 0.04 X10^3/uL; Basophil% 0.5 % (0-1); Eosinophil# 0.12 X10^3/uL; Eosinophils% 1.6 % (0-5); Hematocrit 42.3 % (37-47); Hemoglobin 14.4 g/dl (12.0-15.0); Lymphocyte # 3.12 X10^3/ul (4.0); Lymphocyte % 41.1 % (19-41); Mean Corpuscular Hgb 31.5 pg (27.0-32.0); Mean Corpuscular Volume 92.6 fL (81-99); Mean Platelet Vol. 9.2 fl (6.2-12.0); Monocyte# 0.51 X10^3/uL; Monocyte% 6.7 % (0-10); Neutrophil # 3.79 X10^3/uL (2.7-7.7); Neutrophil % 49.8 % (47-70); Platelet Count 271 K/mm3 (150-450); RBC Distribution Width CV 12.4 % (11.6-14.6); RBC Distribution Width SD 41.4 fl (35.1-43.9); Red Blood Count 4.57 M/mm3 (4.2-5.4); White Blood Count 7.6 K/mm3 (4.4-11.0)
[2018-07-21 16:23] LABS: POSITIVE COUNT NO; POSITIVE DIFFERENTIAL NO; POSITIVE MORPHOLOGY NO
[2018-07-21 16:31] LABS: ALB/GLOB Ratio 0.8 RATIO (0.9-2.4); AST(SGOT) 12 U/L (15-37); Alanine Aminotransfer ALT/SGPT 17 U/L (13-56); Albumin, Serum 3.4 g/dL (3.2-5.0); Alkaline Phosphatase 126 U/L (45-117); Anion Gap 8 (5-15); BUN 12 mg/dL (7-18); BUN/Creat Ratio 16.2 RATIO (10-20); Calcium,Total 9.1 mg/dL (8.5-10.1); Chloride 104 mmol/L (98-107); Creatinine, Serum 0.74 mg/dL (0.55-1.02); D-Dimer Quantitative (DVT/PE) 0.72 FEU/ug/m (0.27-0.49); EST Glomerular Filtration Rate 84 mL/min (>60); Est Glom Filt Rate - Afr Amer 102 mL/min (>60); Estimated Creatinine Clearance 74.74 ml/min; Globulin 4.1 g/dL (2.2-4.2); Glucose 88 mg/dL (74-106); Lipase 119 U/L (73-393); Potassium 3.7 mmol/L (3.5-5.1); Protein, Total 7.5 g/dL (6.4-8.2); Sodium Level 139 mmol/L (136-145)
--- NOTE | 2018-07-21 16:32 | ED.RN ---
PER LAB DDIMER 0.72 DR LOPEZ AWARE.
--- NOTE | 2018-07-21 16:37 | CT_ITS ---
STUDY: CTA CHEST REASON FOR EXAM: Female, 62 years old. Chest pain. RADIATION DOSAGE (If Supplied By Facility): CTDIvol = ( 16.29 ) mGy, DLP = ( 1687.30 ) mGycm TECHNIQUE: The examination was performed with the intravenous administration of 100 ml of Isovue 300 contrast material. Post-processing of the angiographic images was performed, with multiplanar reformation and 3D reconstruction. Individualized dose optimization techniques were used for this CT. COMPARISON: None. FINDINGS: There are mild emphysematous changes noted in the lungs. There are no pulmonary infiltrates or pleural effusions. There is no pneumothorax. There is no evidence of pulmonary embolus. There are atherosclerotic plaques noted throughout the thoracic aorta. There is no evidence of thoracic aortic aneurysm or dissection. The heart and pericardium are within normal limits. There are coronary artery calcifications noted. There is no thoracic lymphadenopathy. There is a small hiatal hernia noted. There are no destructive osseous lesions. CT/CTA Chest W/WO Contrast IMPRESSION: No evidence of pulmonary embolus. Atherosclerotic plaque throughout the thoracic aorta. No evidence of thoracic aortic aneurysm or dissection. Coronary artery disease. Mild emphysema. No pulmonary infiltrates or pleural effusions. Small hiatal hernia. Electronically Signed: Raji Cheng, at 17:41 EST Tel , Service support ,
--- NOTE | 2018-07-21 16:37 | CT_ITS ---
STUDY: CT ABDOMEN AND PELVIS WITH CONTRAST REASON FOR EXAM: Female, 62 years old. Right flank pain. RADIATION DOSAGE (If Supplied By Facility): CTDIvol = ( 16.29 ) mGy, DLP = ( 1687.30 ) mGycm TECHNIQUE: Transaxial images were obtained from the dome of the diaphragm to the symphysis pubis without oral contrast. 100 ml of Isovue 300 contrast was administered. Sagittal and coronal images were reconstructed. Individualized dose optimization techniques were used for this CT. COMPARISON: 05/04/2018 FINDINGS: There are no calcified gallstones present. The common bile duct is dilated, measuring 1.3 cm. There are no calcified stones identified. The liver is within normal limits. There are no suspicious hepatic lesions. The spleen is normal in size. The pancreas is within normal limits. The adrenal glands are within normal limits. There are stable punctate nonobstructing right collecting system stones. There is a stable 5 mm stone in the right distal ureter with no significant hydroureteronephrosis. There are no left renal or ureteral stones. There is left no hydronephrosis. There are no focal renal lesions. Normal visualized stomach. There is no bowel obstruction or inflammation. The appendix is not visualized, but there are no findings to suggest acute appendicitis. The aorta is normal in caliber. Again noted are atherosclerotic calcifications in the aorta. There is no abdominal or pelvic free air, free fluid, fluid collection or lymphadenopathy. There are no destructive osseous lesions. CT/Abdomen/Pelvis W IV Cont ONLY IMPRESSION: Stable 5 mm stone in the right distal ureter with no significant right hydroureteronephrosis. Stable punctate nonobstructing right renal collecting system stones. No left-sided stones. No left-sided hydronephrosis. Dilated common bile duct with no ductal stones identified. No bowel obstruction or inflammation. Electronically Signed: Raji Cheng, at 17:49 EST Tel , Service support ,
[2018-07-21 16:46] LABS: Mucous, Urine 0 SEEN /hpf (<or=2+)
[2018-07-21 17:04] LABS: Color, Urine Yellow (Yellow); Glucose, Dipstick Normal (Normal); Ketone-Dipstick 5 mg/dl (Negative); Leukocyte Esterase-Dipstick 25 /ul (Negative); Nitrite-Dipstick Negative (Negative); Occult Blood-Urine 50 /ul (Negative); Protein-Dipstick Negative (Negative); Urine Bilirubin Dipstick Negative (Negative); Urine Clarity Clear (Clear); Urine Urobilinogen 1 mg/dl (Normal)
[2018-07-21 17:15] LABS: Bacteria RARE /hpf (None Seen); Red Blood Cells-Urine 0-5 SEEN /hpf (0-5); Squamous Epithelial Cells - UA 0-5 SEEN /hpf (5-10); White Blood Cells 0-5 SEEN /hpf (0-5)
[2018-07-21] MEDS: LORazepam 1 MG Tablet PO ×2 (17:16→22:38)
[2018-07-21] MEDS: Aspirin 81 MG TAB.CHEW 324 MG PO (19:29)
--- NOTE | 2018-07-21 19:42 | ED.DCSUM_ITS ---
- ER Visit Summary Date of Service: 07/21/18 Chief Complaint: [Chest pain and abdominal pain] History of Present Illness: The patient is a 62 F [presents to the emergency department complaint of chest pain and also abdominal pain. Patient states that she has been having left-sided chest discomfort for about 1-2 months off and on. Patient states oftentimes she will wake up in the morning she will have pain and she will be nauseated with it. Patient complains of exertional dyspnea. Patient complains of shortness of breath at times. Patient states that she had a heart catheterization several months ago and was told that she had a heart attack. Patient states that she was to have a repeat stress test which she has not followed through with. Patient denies recent travel or surgery. Patient also states that she think she is passing a kidney stone as she is been having some right-sided flank pain for some time. Patient is not sure why she has been able to pass it as of yet. Patient states that a couple days ago she had hematuria. She denies any fevers.] Physical Examination: [HEENT-PERRLA, EOMI. Cranial nerves II through XII grossly intact. TMs clear. Mucous membranes moist. No adenopathy. Cardiovascular-regular rate and rhythm without murmur or ectopy Lungs-clear to auscultation, chest wall stable without crepitus or subcu emphysema Abdomen-normoactive bowel sounds, soft. Patient does have some mild right lower quadrant tenderness on palpation. There is no rebound, rigidity, or perineal signs. Extremities-intact ?4, normal range of motion, normal pulses, atraumatic] Test Results: [EKG obtained on arrival showed a sinus rhythm with a ventricular rate of 82 bpm with nonspecific flipped T waves noted in V1, V2, V3, and V4. When compared with prior EKG the flipped T waves in V3 and V4 appear to be new. CBC with differential showed a white count 7.6, hemoglobin 14, hematocrit 42, platelets 271. Chemistries unremarkable. LFTs unremarkable. Urinalysis unremarkable. Troponin was less than 0.015. D-dimer was elevated 0.72. CT of the chest obtained showed coronary artery disease but no evidence for PE or dissection. CT scan of the abdomen and pelvis without contrast showed a 5 mm stone in the distal right ureter with no obstruction. Incidentally patient had a similar finding on prior CT and at that time it was unclear if the calcification was in the ureter or the vein adjacent to the ureter or a phlebolith.] Emergency Department Course and Treatment: [Patient was given aspirin in the emergency department as well as morphine and Zofran.] Treatment Plan: [Patient case discussed with hospitalist will evaluate patient for admission] Disposition: [Admit] Impression: [Chest pain Kidney stone] This note was generated with [employer] dictation software. It may contain incorrect words, spelling, and punctuation that were not noted in review of the chart prior to signing ED Disposition - Plan for ED Patient: Chief Complaint: Abd Pain Referrals: Chucky Martinez MD [Primary Care Provider] -
--- NOTE | 2018-07-21 20:01 | PCM.HP.STD ---
Problem List (1) Chest pain Status: Acute Qualifiers: Chest pain type: unspecified Qualified Code(s): R07.9 - Chest pain, unspecified History of Present Illness Date of Admission: 07/21/18 Chief Complaint: chest Pain The patient is a 62 year old F with a significant history of Sanchez's esophagitis; COPD; CAD; hypertension; hyperlipidemia and tobacco abuse who presents with a 2-month history of worsening chest pain. Her chest pain is located under her left breast. She described the quality as sharp. She rates her pain as a 6-7 on a scale of 1-10. Her pain is aggravated with eating and relieved by fasting. Her chest pain is non radiating. However patient complains of left sided lower back pain. Further, she complains of right-sided flank pain that goes to her groin. She attributes this to kidney stones; and states that in the last week this pain has increased. Patient is a known patient of Dr. Best. Patient had a left cath with Dr. Villanueva on 12/18/2017. Her heart cath at that time was abnormal. Patient was supposed to have a stress test with Dr. Best but she did not follow-up. In April 2018 patient had T wave inversion in lead V2; and flattening of T wave in V3 and V6. On this admission patient had a T wave inversion in lead V3 and V4. Past Medical History Past Medical History (Chronic Problems): Chronic Problems (Last Reviewed 07/21/18 @ 20:41 by Thor Daniel MD) Tobacco use (Chronic) EVELYN (obstructive sleep apnea) (Chronic) Obesity (BMI 30.0-34.9) (Chronic) TIA (transient ischemic attack) (Chronic) Anxiety and depression (Chronic) Cardiomyopathy (Chronic) Atherosclerotic heart disease of [place] coronary artery without angina pectoris (Chronic) Mild Hypertension (Chronic) Medical History: Medical History (Last Reviewed 07/21/18 @ 20:41 by Thor Daniel MD) Cardiomyopathy (Chronic) I42.9 Hyperlipidemia (Acute) E78.5 Atherosclerotic heart disease of [place] coronary artery without angina pectoris (Chronic) I25.10 Mild Hypertension (Chronic) I10 COPD (chronic obstructive pulmonary disease) J44.9 Calculus of left kidney N20.0 GERD (gastroesophageal reflux disease) K21.9 Personal history of transient ischemic attack (TIA), and cerebral infarction without residual deficits Z86.73 Tobacco abuse Z72.0 Allergies No Known Allergies Allergy (Verified 12/30/17 14:29) Home Medications: Ambulatory Orders Medication Instructions Recorded Lisinopril [Zestril] 10 mg PO BID 11/18/15 Esomeprazole Mag Trihydrate 40 mg PO DAILY 10/03/16 [Nexium] lorazepam 1 mg tablet 1 mg PO BID tab 11/16/17 Atorvastatin Calcium [Lipitor] 20 mg PO QHS #30 tab 12/19/17 carvedilol 12.5 mg tablet 12.5 mg PO BID #60 tab 01/19/18 Aspirin E.C. [Ecotrin] 81 mg PO DAILY@0800 07/21/18 Morphine Sulfate/Naltrexone 1 cap PO DAILY 07/21/18 [Embeda ER 60-2.4 mg Capsule] Oxycodone HCl/Acetaminophen 1 tab PO TID PRN PRN 07/21/18 [Percocet 5-325] Promethazine HCl 25 mg PO PRN PRN 07/21/18 Surgical History: Surgical History (Last Reviewed 07/21/18 @ 20:41 by Thor Daniel MD) History of total hysterectomy Z90.710 Hx of appendectomy Z90.49 Surgical History: appendectomy, hysterectomy Psychiatric History: Anxiety, Depression MEDICAL VAN [employer]IVER History: No pertinent MEDICAL VAN [employer]IVER history Smoking Status: Current every day smoker Alcohol: Occasional - *Family History Maternal Family History: Family History (Last Reviewed 07/22/18 @ 04:07 by Thor Daniel MD) Mother Hypertension CAD (coronary artery disease) CVA (cerebral vascular accident) Myocardial infarction Grandmother Myocardial infarction History Items: Heart Disease Paternal Family History: Family History (Last Reviewed 07/22/18 @ 04:07 by Thor Daniel MD) Mother Hypertension CAD (coronary artery disease) CVA (cerebral vascular accident) Myocardial infarction Grandmother Myocardial infarction Review of Systems Constitutional: Denies: Chills, Fever, Weight Change HEENT: Denies: Head Aches, Sinus Congestion, Sinus Drainage Cardiovascular: Reports: Chest Pain. Denies: Palpitations Respiratory: Denies: Cough, Shortness of breath at rest, Sputum production Gastrointestinal: Reports: Nausea, Vomiting. Denies: Abdominal Pain Genitourinary: Denies: Dysuria Musculoskeletal: Reports: Back Pain - right lower back pain; and left lower back pain.. Denies: Joint Pain, Joint Tenderness Skin: Denies: Rash, Wounds Neurological: Denies: Numbness, Tingling, Focal weakness Psychiatric: Denies: Anxiety, Depression, Homicidal Ideations, Suicidal Ideations Hematologic/ Lymphatic: Denies: Easy Bruising, Easy Bleeding VTE Information - Inpt Only VTE Present on Admission: No VTE Mechan Device Prophylaxis: None VTE Pharm Prophylaxis ordered?: Yes - Physical Exam General: Alert, Oriented x3, Cooperative HEENT: Atraumatic, PERRLA, EOMI, Normocephalic Neck: Supple, No JVD, Negative Carotid Bruits Lungs: Clear to auscultation, Normal air movement Cardiovascular: Regular rate, No murmurs Abdomen: Bowel Sounds Present, Soft, Non Tender Extremities: No edema, Capillary Refill Less than 3 Seconds Skin: No rashes, No breakdown Musculoskeletal: No Tenderness to Palpation of Joints or Extremities, Tenderness - Left lower back Neurological: Cranial nerves II-XII grossly intact Psych/Mental Status: Normal Affect, Appropriate Vital Signs Temp Pulse Resp BP Pulse Ox 97.6 F L 76 19 H 130/76 H 94 07/21/18 15:27 07/21/18 19:30 07/21/18 19:30 07/21/18 19:30 07/21/18 19:30 Oxygen Flow Rate (L/min) 2 Oxygen Delivery Method Nasal Cannula Weight: 81.8 kg Body Mass Index (BMI) 29.0 Finger Stick Blood Glucose 76 Laboratory Tests Past 24 Hrs 07/21/18 07/21/18 07/21/18 15:55 15:55 15:55 WBC 7.6 RBC 4.57 Hgb 14.4 Hct 42.3 MCV 92.6 MCH 31.5 MCHC 34.0 RDW 12.4 RDW Differential 41.4 Plt Count 271 MPV 9.2 Immature Gran % (Auto) 0.300 Neut % (Auto) 49.8 Lymph % (Auto) 41.1 H [place] % (Auto) 6.7 Eos % (Auto) 1.6 Baso % (Auto) 0.5 Absolute Neuts (auto) 3.8 Absolute Lymphs (auto) 3.12 Total Counted Not Reportable D-Dimer Quant (PE/DVT) 0.72 H* Sodium 139 Potassium 3.7 Chloride 104 Carbon Dioxide 27.0 Anion Gap 8 BUN 12 Creatinine 0.74 Estim Creat Clear Calc 74.74 Est GFR (MDRD) Af Amer 102 Est GFR (MDRD) Non-Af 84 BUN/Creatinine Ratio 16.2 Glucose 88 Calcium 9.1 Total Bilirubin 0.40 AST 12 L ALT 17 Alkaline Phosphatase 126 H Troponin I < 0.015 Total Protein 7.5 Albumin 3.4 Globulin 4.1 Albumin/Globulin Ratio 0.8 L Lipase 119 Urine Color Urine Clarity Urine pH Ur Specific [place] Urine Protein Urine Glucose (UA) Urine Ketones Urine Occult Blood Urine Nitrite Urine Bilirubin Urine Urobilinogen Ur Leukocyte Esterase Urine RBC Urine WBC Ur Squamous Epith Cells Urine Bacteria Urine Mucus 07/21/18 16:20 WBC RBC Hgb Hct MCV MCH MCHC RDW RDW Differential Plt Count MPV Immature Gran % (Auto) Neut % (Auto) Lymph % (Auto) [place] % (Auto) Eos % (Auto) Baso % (Auto) Absolute Neuts (auto) Absolute Lymphs (auto) Total Counted D-Dimer Quant (PE/DVT) Sodium Potassium Chloride Carbon Dioxide Anion Gap BUN Creatinine Estim Creat Clear Calc Est GFR (MDRD) Af Amer Est GFR (MDRD) Non-Af BUN/Creatinine Ratio Glucose Calcium Total Bilirubin AST ALT Alkaline Phosphatase Troponin I Total Protein Albumin Globulin Albumin/Globulin Ratio Lipase Urine Color Yellow Urine Clarity Clear Urine pH 5.0 Ur Specific [place] 1.020 Urine Protein Negative Urine Glucose (UA) Normal Urine Ketones 5 H Urine Occult Blood 50 H Urine Nitrite Negative Urine Bilirubin Negative Urine Urobilinogen 1 H Ur Leukocyte Esterase 25 H Urine RBC 0-5 SEEN Urine WBC 0-5 SEEN Ur Squamous Epith Cells 0-5 SEEN Urine Bacteria RARE Urine Mucus 0 SEEN Assessment/Plan All Active Problems (Last Reviewed 07/21/18 @ 20:41 by Thor Daniel MD) COPD (chronic obstructive pulmonary disease) (Acute) GERD (gastroesophageal reflux disease) (Acute) Chest pain (Acute) Acute chest pain (Acute) NSTEMI (non-ST elevated myocardial infarction) (Acute) Hyperlipidemia (Acute) The patient is a 62 year old F with a significant history of Sanchez's esophagitis; COPD; CAD; hypertension; hyperlipidemia and tobacco abuse who presents with a 2-month history of progression worsening chest pain and an abnormal cardiac cath in December 2017.. Chest pain CTPA showed CAD and small hiatal hernia Review of old records shows that patient had a NSTEMI in December 2017. Cardiac Cath on 12/18/2017 showed culprit vessel as 2mm small sub-D1 (first diagonal) 100% mid occlusion. The remainder of her epicardial vessels showed mild to moderate disease as below: 40-50% Prox LAD; 60% distal Mid LAD 40% Proximal Ramus 40-50% Prox RCA; 60% distal Mid RCA; 60% Prox RPLV. Following cardiac cath on 12/18/2017 plan was medical therapy with Plavix, nitrates, continuation of aspirin and beta blockers and for patient to quit smoking. Importantly patient's home medication does not show that patient is on plavix. On Dr. Best's notes on 12/30/2017 it was noted that patient continues to have intermittent chest discomfort. The plan at this time was to do nuclear stress test. However, patient could not get the nuclear stress test done outpatient. Admit to a monitored bed on PCU EKG independently review shows that in April 2018 patient had T wave inversion in lead V2; and flattening of T wave in V3 and V6. On this admission patient had a T wave inversion in lead V3 and V4. ASA 81 mg p.o. daily SL NTG 0.4 mg prn as needed for chest pain Serial cardiac enzymes Stat EKG as needed for chest pain Cardiology consult. Left lower back pain Most likely musculoskeletal pain. On Home Morphine Sulfate with Naltrexone. Morphine Sulfate ordered while inpatient. R Distal ureteral stone CT abdomen and pelvis with stable 5mm stone in the right distal ureter with no significant hydroureteronephrosis Flomax ordered. Consider discussion with urology GERD CTPA showed CAD and small hiatal hernia PPI continued. Her chest pain has a relation to food. Consider escalating GERD regimen DVT prophylaxis Lovenox ordered Code Visit OBSV E&M: 21722 Initial observation care L3
--- NOTE | 2018-07-21 20:20 | EKG12_ITS ---
Test Reason : ABNL PAIN Blood Pressure : / mmHG Vent. Rate : 082 BPM Atrial Rate : 082 BPM P-R Int : 130 ms QRS Dur : 098 ms QT Int : 374 ms P-R-T Axes : 062 032 063 degrees QTc Int : 436 ms Normal sinus rhythm T wave abnormality, consider anterior ischemia Abnormal ECG Confirmed by CECI MARTINEZ, GEO ([id number]), editor index LOPEZ VERA ([id number]) on 07/23/2018 3:26:49 PM Referred By: Thor Daniel Confirmed By:GEO ORNELAS MD
[2018-07-21] MEDS: MELATONIN 10 MG TABLET 5 MG PO (22:37)
[2018-07-21] MEDS: Atorvastatin Calcium 20 MG Tablet PO (22:40)
[2018-07-21] MEDS: Senna/Docusate Sodium 1 Tablet 2 TABLET PO (22:40)
[2018-07-22] VITALS (13 sets, daily range): BP systolic 93–125; BP diastolic 53–99; PULSE 55–66; RESP 12–18; TEMP 36.4–37; O2SAT 92–97
[2018-07-22 02:50] LABS: Prothrombin Time (Protime)PT. 13.2 SECONDS (11.7-14.9)
[2018-07-22 03:04] LABS: Anion Gap 7 (5-15); BUN 13 mg/dL (7-18); Calcium,Total 8.3 mg/dL (8.5-10.1); Chloride 109 mmol/L (98-107); Cholesterol 207 mg/dL (200); Creatinine, Serum 0.69 mg/dL (0.55-1.02); EST Glomerular Filtration Rate 92 mL/min (>60); Est Glom Filt Rate - Afr Amer 112 mL/min (>60); Estimated Creatinine Clearance 77.04 ml/min; Glucose 81 mg/dL (74-106); High Density Lipoprotein 30 mg/dL; Potassium 3.8 mmol/L (3.5-5.1); Sodium Level 145 mmol/L (136-145); Triglycerides 141 mg/dL; Very Low Density Lipoprotein 28 mg/dL (5-40)
[2018-07-22] MEDS: 0.9% Normal Saline 1,000 ML 150 ML IV (03:20)
--- NOTE | 2018-07-22 04:00 | EKG12_ITS ---
Test Reason : AM EKG Blood Pressure : / mmHG Vent. Rate : 057 BPM Atrial Rate : 057 BPM P-R Int : 136 ms QRS Dur : 110 ms QT Int : 440 ms P-R-T Axes : 050 048 092 degrees QTc Int : 428 ms Sinus bradycardia T wave abnormality, consider anterior ischemia Abnormal ECG No previous ECGs available Confirmed by CECI MARTINEZ, GEO ([id number]), general expeditor LOPEZ VERA ([id number] on 07/26/2018 1:48:07 PM Referred By: Thor Daniel Confirmed By:GEO ORNELAS MD
[2018-07-22] MEDS: Aspirin E.C. 81 MG Tablet PO (06:23)
[2018-07-22] MEDS: Lisinopril 10 MG Tablet PO ×2 (06:23→21:14)
[2018-07-22 06:40] LABS: Partial Thromboplast Time 29.8 Seconds (24.1-36.2)
[2018-07-22] MEDS: LORazepam 1 MG Tablet PO ×2 (09:22→21:12)
[2018-07-22] MEDS: Pantoprazole Sodium 40 MG Tablet PO (09:23)
[2018-07-22] MEDS: Senna/Docusate Sodium 1 Tablet 2 TABLET PO ×2 (09:23→21:14)
[2018-07-22] MEDS: Carvedilol 12.5 MG Tablet PO ×2 (11:34→21:12)
[2018-07-22] MEDS: Sucralfate 1 GM Tablet PO ×3 (11:38→23:32)
--- NOTE | 2018-07-22 11:46 | STRESSREP ---
Stress Test Report Date: 07/22/2018 Procedure: Pharmacologic stress nuclear imaging study Indications: Chest pain; CAD Consent: Per the patient Procedure: The patient underwent pharmacologic (Regadenoson) evaluation with a peak heart rate of 101 beats per minute (63 predicted maximal heart rate) and a peak blood pressure of 110/62 mmHg. The baseline ECG demonstrated normal sinus rhythm; T wave abnormality. The peak pharmacologic ECG demonstrated no obvious ECG changes. There were no cardiac dysrhythmias pretest, during pharmacologic infusion, or recovery. There was no complaint of chest discomfort during pharmacologic infusion or recovery. The examination was discontinued secondary to completion of protocol. Impression: 1. Pharmacologic (Regadenoson) evaluation 2. Peak pharmacologic ECG with no obvious ECG changes. 3. There were no cardiac dysrhythmias pretest, during pharmacologic infusion, or recovery. 4. Nuclear images pending Myocardial perfusion imaging study: Technique: The patient was injected with 11.2 millicuries of technetium 99m Cardiolite and subsequently rest SPECT Cardiolite nuclear imaging was obtained in the horizontal long, vertical long, and short axis views. The patient underwent pharmacologic (Regadenoson) evaluation with a peak heart rate of 101 beats per minute (63 % percent predicted maximal heart rate) and a peak blood pressure of 110/62 mmHg. The patient was injected with 33.7 millicuries of technetium 99m Cardiolite and subsequently stress SPECT Cardiolite nuclear imaging was obtained in the horizontal long, vertical long, and short axis views. A gated Cardiolite study at peak stress was obtained. Interpretation: Rest and stress SPECT Cardiolite nuclear imaging status post realignment, normalization, and attenuation correction demonstrate the appearance of diminished absence of tracer uptake in portions of the distal anterior, distal anterolateral, and apical segments without significant change between rest and stress. There are similar type findings on the resting and stress polar map images. There is diminished end systolic thickening and brightening in the aforementioned areas. The gated Cardiolite study demonstrates diminished myocardial thickening and inward wall motion in the apical areas. The reported LVEF is 63 %. Impression: 1. Rest and stress SPECT cardio nuclear imaging demonstrate myocardial perfusion changes appearing compatible with an area of previous myocardial injury/infarction involving portions of the distal anterior and distal anterolateral segments and apical segments with no myocardial perfusion changes considered a diagnostic for associated stress-induced myocardial ischemia. 2. The gated Cardiolite study reports an LVEF of 63%. This note was generated with [employer] software. It may contain incorrect words, spelling, and punctuation that were not noted in checking the note before signing.
--- NOTE | 2018-07-22 14:01 | PCM.PROGNOTE ---
Subjective: Chief complaint: Follow-up after admission for chest pain with EKG changes. Patient seen and examined. No acute events overnight. She is still complaining of epigastric and left subcostal pain. She mentioned that this pain has been going on for almost 2 months. According to her, she had upper EGD around [address] 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 She has been using Prilosec with no improvement. She denied hematemesis, hematochezia or melena. Her vital signs are stable. - Physical Exam General: Alert, Oriented x3, Cooperative, No apparent distress HEENT: Atraumatic, PERRLA, EOMI, Normocephalic Oral: Moist Mucosa, No Gingival or Mucosal Lesions/ Ulcerations Neck: Supple, No JVD, Negative Carotid Bruits, Trachea Midline, Thyroid Normal Size and Texture Lungs: Clear to auscultation, No rhonchi, No wheeze, No rales, Diminished Cardiovascular: Regular rate, Regular Rhythm, Normal S1, Normal S2, PMI Normal Abdomen: Bowel Sounds Present, Soft, Non Tender, Non-Distended, No Hepato-splenomegaly Extremities: No clubbing, No cyanosis, No edema Skin: No rashes, No breakdown Lymphatic: No Cervical, Supraclavicular, or Inguinal Adenopathy Neurological: Cranial nerves II-XII grossly intact, Motor Exam 5/5 strength throughout Psych/Mental Status: Normal Affect, Appropriate, Alert and oriented to time, place, person, mood and affect Vital Signs Temp Pulse Resp BP Pulse Ox 98 F 58 L 15 104/71 92 07/22/18 11:29 07/22/18 11:43 07/22/18 11:29 07/22/18 11:29 07/22/18 11:29 Oxygen Flow Rate (L/min) 2 Oxygen Delivery Method Room Air Weight: 182 lb 1.629 oz Body Mass Index (BMI) 30.3 Finger Stick Blood Glucose 76 Intake and Output for Last 24 Hours 07/20/18 07/21/18 07/22/18 23:59 23:59 23:59 Intake Total 821 / 821 1690 / 1690 Balance 821 / 821 1690 / 1690 Laboratory Tests Past 24 Hrs 07/21/18 07/21/18 07/21/18 15:55 15:55 15:55 WBC 7.6 RBC 4.57 Hgb 14.4 Hct 42.3 MCV 92.6 MCH 31.5 MCHC 34.0 RDW 12.4 RDW Differential 41.4 Plt Count 271 MPV 9.2 Immature Gran % (Auto) 0.300 Neut % (Auto) 49.8 Lymph % (Auto) 41.1 H [place] % (Auto) 6.7 Eos % (Auto) 1.6 Baso % (Auto) 0.5 Absolute Neuts (auto) 3.8 Absolute Lymphs (auto) 3.12 Total Counted Not Reportable PT INR APTT D-Dimer Quant (PE/DVT) 0.72 H* Sodium 139 Potassium 3.7 Chloride 104 Carbon Dioxide 27.0 Anion Gap 8 BUN 12 Creatinine 0.74 Estim Creat Clear Calc 74.74 Est GFR (MDRD) Af Amer 102 Est GFR (MDRD) Non-Af 84 BUN/Creatinine Ratio 16.2 Glucose 88 Calcium 9.1 Total Bilirubin 0.40 AST 12 L ALT 17 Alkaline Phosphatase 126 H Troponin I < 0.015 Total Protein 7.5 Albumin 3.4 Globulin 4.1 Albumin/Globulin Ratio 0.8 L Triglycerides Cholesterol LDL Cholesterol VLDL Cholesterol HDL Cholesterol Lipase 119 Urine Color Urine Clarity Urine pH Ur Specific [place] Urine Protein Urine Glucose (UA) Urine Ketones Urine Occult Blood Urine Nitrite Urine Bilirubin Urine Urobilinogen Ur Leukocyte Esterase Urine RBC Urine WBC Ur Squamous Epith Cells Urine Bacteria Urine Mucus 07/21/18 07/21/18 07/21/18 16:20 20:22 23:14 WBC RBC Hgb Hct MCV MCH MCHC RDW RDW Differential Plt Count MPV Immature Gran % (Auto) Neut % (Auto) Lymph % (Auto) [place] % (Auto) Eos % (Auto) Baso % (Auto) Absolute Neuts (auto) Absolute Lymphs (auto) Total Counted PT INR APTT D-Dimer Quant (PE/DVT) Sodium Potassium Chloride Carbon Dioxide Anion Gap BUN Creatinine Estim Creat Clear Calc Est GFR (MDRD) Af Amer Est GFR (MDRD) Non-Af BUN/Creatinine Ratio Glucose Calcium Total Bilirubin AST ALT Alkaline Phosphatase Troponin I < 0.015 < 0.015 Total Protein Albumin Globulin Albumin/Globulin Ratio Triglycerides Cholesterol LDL Cholesterol VLDL Cholesterol HDL Cholesterol Lipase Urine Color Yellow Urine Clarity Clear Urine pH 5.0 Ur Specific [place] 1.020 Urine Protein Negative Urine Glucose (UA) Normal Urine Ketones 5 H Urine Occult Blood 50 H Urine Nitrite Negative Urine Bilirubin Negative Urine Urobilinogen 1 H Ur Leukocyte Esterase 25 H Urine RBC 0-5 SEEN Urine WBC 0-5 SEEN Ur Squamous Epith Cells 0-5 SEEN Urine Bacteria RARE Urine Mucus 0 SEEN 07/22/18 07/22/18 07/22/18 02:34 02:34 02:34 WBC RBC Hgb Hct MCV MCH MCHC RDW RDW Differential Plt Count MPV Immature Gran % (Auto) Neut % (Auto) Lymph % (Auto) [place] % (Auto) Eos % (Auto) Baso % (Auto) Absolute Neuts (auto) Absolute Lymphs (auto) Total Counted PT 13.2 INR 1.0 APTT D-Dimer Quant (PE/DVT) Sodium 145 Potassium 3.8 Chloride 109 H Carbon Dioxide 29.0 Anion Gap 7 BUN 13 Creatinine 0.69 Estim Creat Clear Calc 77.04 Est GFR (MDRD) Af Amer 112 Est GFR (MDRD) Non-Af 92 BUN/Creatinine Ratio 19.0 Glucose 81 Calcium 8.3 L Total Bilirubin AST ALT Alkaline Phosphatase Troponin I < 0.015 Total Protein Albumin Globulin Albumin/Globulin Ratio Triglycerides 141 Cholesterol 207 H LDL Cholesterol 149 H VLDL Cholesterol 28 HDL Cholesterol 30 L Lipase Urine Color Urine Clarity Urine pH Ur Specific [place] Urine Protein Urine Glucose (UA) Urine Ketones Urine Occult Blood Urine Nitrite Urine Bilirubin Urine Urobilinogen Ur Leukocyte Esterase Urine RBC Urine WBC Ur Squamous Epith Cells Urine Bacteria Urine Mucus 07/22/18 06:06 WBC RBC Hgb Hct MCV MCH MCHC RDW RDW Differential Plt Count MPV Immature Gran % (Auto) Neut % (Auto) Lymph % (Auto) [place] % (Auto) Eos % (Auto) Baso % (Auto) Absolute Neuts (auto) Absolute Lymphs (auto) Total Counted PT INR APTT 29.8 D-Dimer Quant (PE/DVT) Sodium Potassium Chloride Carbon Dioxide Anion Gap BUN Creatinine Estim Creat Clear Calc Est GFR (MDRD) Af Amer Est GFR (MDRD) Non-Af BUN/Creatinine Ratio Glucose Calcium Total Bilirubin AST ALT Alkaline Phosphatase Troponin I Total Protein Albumin Globulin Albumin/Globulin Ratio Triglycerides Cholesterol LDL Cholesterol VLDL Cholesterol HDL Cholesterol Lipase Urine Color Urine Clarity Urine pH Ur Specific [place] Urine Protein Urine Glucose (UA) Urine Ketones Urine Occult Blood Urine Nitrite Urine Bilirubin Urine Urobilinogen Ur Leukocyte Esterase Urine RBC Urine WBC Ur Squamous Epith Cells Urine Bacteria Urine Mucus Clinical Impression(s) from Imaging Studies Abdomen/Pelvis CT 07/21/18 16:37 IMPRESSION: Stable 5 mm stone in the right distal ureter with no significant right hydroureteronephrosis. Stable punctate nonobstructing right renal collecting system stones. No left-sided stones. No left-sided hydronephrosis. Dilated common bile duct with no ductal stones identified. No bowel obstruction or inflammation. Electronically Signed: Raji Cheng, at 17:49 EST Tel , Service support , Chest CTA 07/21/18 16:37 IMPRESSION: No evidence of pulmonary embolus. Atherosclerotic plaque throughout the thoracic aorta. No evidence of thoracic aortic aneurysm or dissection. Coronary artery disease. Mild emphysema. No pulmonary infiltrates or pleural effusions. Small hiatal hernia. Electronically Signed: Raji Jaquezmichaelbri, at 17:41 EST Tel , Service support , Medical Necessity - Tobacco Use Smoking Status: Current every day smoker Tobacco Use: Cigarettes Assessment/Plan This is a 62 years old female patient admitted for atypical chest pain with EKG changes for evaluation. #1 atypical chest pain/epigastric pain/EKG changes: EKG reviewed, revealed T wave inversion in leads V2, V3 and V4 which are more prominent compared to previous EKGs. Her troponin are negative x3. Her vital signs are stable. Routine blood work was unremarkable. LFT and lipase were normal. CT scan abdomen and pelvis with contrast revealed normal liver and biliary system, normal pancreas, stable 5 mm stone in the right distal ureter with no hydronephrosis or hydroureter, no evidence of obstructive uropathy. She underwent nuclear stress test today that revealed previous myocardial injury without evidence of acute stress-induced myocardial ischemia. She has significant history for GERD and Sanchez's esophagus according to the patient. Most likely symptoms are secondary to Sanchez's esophagus and GERD. ACS ruled out. Plan: IV Protonix, start Carafate, IV Phenergan, Mylanta as needed, anticipate discharge home tomorrow. #2 GERD/Sanchez's esophagus: According to the patient, she has been having this pain for almost 2 months, has been using Prilosec with minimal improvement. She mentioned that she had upper EGD [address] Tejada, no documents available. It revealed Sanchez's esophagus, severe according to the patient. Plan: IV Protonix, Carafate, Mylanta as needed, IV Phenergan. #3 elevated d-dimer: Unclear etiology, CTA chest negative for PE or dissection. Respiratory status stable, maintaining pulse ox on room air. #4 CAD: Stable, plan as above. Continue aspirin, statins, Coreg and lisinopril. #5 hypertension: Blood pressure stable, continue Coreg and lisinopril. #6 chronic pain syndrome: Continue MS Contin and start IV morphine as needed. #7 DVT prophylaxis: Subcu Lovenox. This note was generated with [employer] dictation software. It may contain incorrect words, spelling, and punctuation that were not noted in checking the note before signing. Code Visit OBSV E&M: 19542 Subsequent observation care L2
--- NOTE | 2018-07-22 14:07 | PN_ITS ---
Subjective: Chief complaint: Follow-up after admission for chest pain with EKG changes. Patient seen and examined. No acute events overnight. She is still complaining of epigastric and left subcostal pain. She mentioned that this pain has been going on for almost 2 months. According to her, she had upper EGD around [address] 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 She has been using Prilosec with no improvement. She denied hematemesis, hematochezia or melena. Her vital signs are stable. - Physical Exam General: Alert, Oriented x3, Cooperative, No apparent distress HEENT: Atraumatic, PERRLA, EOMI, Normocephalic Oral: Moist Mucosa, No Gingival or Mucosal Lesions/ Ulcerations Neck: Supple, No JVD, Negative Carotid Bruits, Trachea Midline, Thyroid Normal Size and Texture Lungs: Clear to auscultation, No rhonchi, No wheeze, No rales, Diminished Cardiovascular: Regular rate, Regular Rhythm, Normal S1, Normal S2, PMI Normal Abdomen: Bowel Sounds Present, Soft, Non Tender, Non-Distended, No Hepato- splenomegaly Extremities: No clubbing, No cyanosis, No edema Skin: No rashes, No breakdown Lymphatic: No Cervical, Supraclavicular, or Inguinal Adenopathy Neurological: Cranial nerves II-XII grossly intact, Motor Exam 5/5 strength throughout Psych/Mental Status: Normal Affect, Appropriate, Alert and oriented to time, place, person, mood and affect Vital Signs Temp Pulse Resp BP Pulse Ox 98 F 58 L 15 104/71 92 07/22/18 11:29 07/22/18 11:43 07/22/18 11:29 07/22/18 11:29 07/22/18 11:29 Oxygen Flow Rate (L/min) 2 Oxygen Delivery Method Room Air Weight: 182 lb 1.629 oz Body Mass Index (BMI) 30.3 Finger Stick Blood Glucose 76 Intake and Output for Last 24 Hours 07/20/18 07/21/18 07/22/18 23:59 23:59 23:59 Intake Total 821 / 821 1690 / 1690 Balance 821 / 821 1690 / 1690 Laboratory Tests Past 24 Hrs 07/21/18 07/21/18 07/21/18 15:55 15:55 15:55 WBC 7.6 RBC 4.57 Hgb 14.4 Hct 42.3 MCV 92.6 MCH 31.5 MCHC 34.0 RDW 12.4 RDW Differential 41.4 Plt Count 271 MPV 9.2 Immature Gran % (Auto) 0.300 Neut % (Auto) 49.8 Lymph % (Auto) 41.1 H [place] % (Auto) 6.7 Eos % (Auto) 1.6 Baso % (Auto) 0.5 Absolute Neuts (auto) 3.8 Absolute Lymphs (auto) 3.12 Total Counted Not Reportable PT INR APTT D-Dimer Quant (PE/DVT) 0.72 H* Sodium 139 Potassium 3.7 Chloride 104 Carbon Dioxide 27.0 Anion Gap 8 BUN 12 Creatinine 0.74 Estim Creat Clear Calc 74.74 Est GFR (MDRD) Af Amer 102 Est GFR (MDRD) Non-Af 84 BUN/Creatinine Ratio 16.2 Glucose 88 Calcium 9.1 Total Bilirubin 0.40 AST 12 L ALT 17 Alkaline Phosphatase 126 H Troponin I < 0.015 Total Protein 7.5 Albumin 3.4 Globulin 4.1 Albumin/Globulin Ratio 0.8 L Triglycerides Cholesterol LDL Cholesterol VLDL Cholesterol HDL Cholesterol Lipase 119 Urine Color Urine Clarity Urine pH Ur Specific [place] Urine Protein Urine Glucose (UA) Urine Ketones Urine Occult Blood Urine Nitrite Urine Bilirubin Urine Urobilinogen Ur Leukocyte Esterase Urine RBC Urine WBC Ur Squamous Epith Cells Urine Bacteria Urine Mucus 07/21/18 07/21/18 07/21/18 16:20 20:22 23:14 WBC RBC Hgb Hct MCV MCH MCHC RDW RDW Differential Plt Count MPV Immature Gran % (Auto) Neut % (Auto) Lymph % (Auto) [place] % (Auto) Eos % (Auto) Baso % (Auto) Absolute Neuts (auto) Absolute Lymphs (auto) Total Counted PT INR APTT D-Dimer Quant (PE/DVT) Sodium Potassium Chloride Carbon Dioxide Anion Gap BUN Creatinine Estim Creat Clear Calc Est GFR (MDRD) Af Amer Est GFR (MDRD) Non-Af BUN/Creatinine Ratio Glucose Calcium Total Bilirubin AST ALT Alkaline Phosphatase Troponin I < 0.015 < 0.015 Total Protein Albumin Globulin Albumin/Globulin Ratio Triglycerides Cholesterol LDL Cholesterol VLDL Cholesterol HDL Cholesterol Lipase Urine Color Yellow Urine Clarity Clear Urine pH 5.0 Ur Specific [place] 1.020 Urine Protein Negative Urine Glucose (UA) Normal Urine Ketones 5 H Urine Occult Blood 50 H Urine Nitrite Negative Urine Bilirubin Negative Urine Urobilinogen 1 H Ur Leukocyte Esterase 25 H Urine RBC 0-5 SEEN Urine WBC 0-5 SEEN Ur Squamous Epith Cells 0-5 SEEN Urine Bacteria RARE Urine Mucus 0 SEEN 07/22/18 07/22/18 07/22/18 02:34 02:34 02:34 WBC RBC Hgb Hct MCV MCH MCHC RDW RDW Differential Plt Count MPV Immature Gran % (Auto) Neut % (Auto) Lymph % (Auto) [place] % (Auto) Eos % (Auto) Baso % (Auto) Absolute Neuts (auto) Absolute Lymphs (auto) Total Counted PT 13.2 INR 1.0 APTT D-Dimer Quant (PE/DVT) Sodium 145 Potassium 3.8 Chloride 109 H Carbon Dioxide 29.0 Anion Gap 7 BUN 13 Creatinine 0.69 Estim Creat Clear Calc 77.04 Est GFR (MDRD) Af Amer 112 Est GFR (MDRD) Non-Af 92 BUN/Creatinine Ratio 19.0 Glucose 81 Calcium 8.3 L Total Bilirubin AST ALT Alkaline Phosphatase Troponin I < 0.015 Total Protein Albumin Globulin Albumin/Globulin Ratio Triglycerides 141 Cholesterol 207 H LDL Cholesterol 149 H VLDL Cholesterol 28 HDL Cholesterol 30 L Lipase Urine Color Urine Clarity Urine pH Ur Specific [place] Urine Protein Urine Glucose (UA) Urine Ketones Urine Occult Blood Urine Nitrite Urine Bilirubin Urine Urobilinogen Ur Leukocyte Esterase Urine RBC Urine WBC Ur Squamous Epith Cells Urine Bacteria Urine Mucus 07/22/18 06:06 WBC RBC Hgb Hct MCV MCH MCHC RDW RDW Differential Plt Count MPV Immature Gran % (Auto) Neut % (Auto) Lymph % (Auto) [place] % (Auto) Eos % (Auto) Baso % (Auto) Absolute Neuts (auto) Absolute Lymphs (auto) Total Counted PT INR APTT 29.8 D-Dimer Quant (PE/DVT) Sodium Potassium Chloride Carbon Dioxide Anion Gap BUN Creatinine Estim Creat Clear Calc Est GFR (MDRD) Af Amer Est GFR (MDRD) Non-Af BUN/Creatinine Ratio Glucose Calcium Total Bilirubin AST ALT Alkaline Phosphatase Troponin I Total Protein Albumin Globulin Albumin/Globulin Ratio Triglycerides Cholesterol LDL Cholesterol VLDL Cholesterol HDL Cholesterol Lipase Urine Color Urine Clarity Urine pH Ur Specific [place] Urine Protein Urine Glucose (UA) Urine Ketones Urine Occult Blood Urine Nitrite Urine Bilirubin Urine Urobilinogen Ur Leukocyte Esterase Urine RBC Urine WBC Ur Squamous Epith Cells Urine Bacteria Urine Mucus Clinical Impression(s) from Imaging Studies Abdomen/Pelvis CT 07/21/18 16:37 IMPRESSION: Stable 5 mm stone in the right distal ureter with no significant right hydroureteronephrosis. Stable punctate nonobstructing right renal collecting system stones. No left-sided stones. No left-sided hydronephrosis. Dilated common bile duct with no ductal stones identified. No bowel obstruction or inflammation. Electronically Signed: Raji Cheng, at 17:49 EST Tel , Service support , Chest CTA 07/21/18 16:37 IMPRESSION: No evidence of pulmonary embolus. Atherosclerotic plaque throughout the thoracic aorta. No evidence of thoracic aortic aneurysm or dissection. Coronary artery disease. Mild emphysema. No pulmonary infiltrates or pleural effusions. Small hiatal hernia. Electronically Signed: Raji Jaquezmichaelbri, at 17:41 EST Tel , Service support , Medical Necessity - Tobacco Use Smoking Status: Current every day smoker Tobacco Use: Cigarettes Assessment/Plan This is a 62 years old female patient admitted for atypical chest pain with EKG changes for evaluation. #1 atypical chest pain/epigastric pain/EKG changes: EKG reviewed, revealed T wave inversion in leads V2, V3 and V4 which are more prominent compared to previous EKGs. Her troponin are negative x3. Her vital signs are stable. Routine blood work was unremarkable. LFT and lipase were normal. CT scan abdomen and pelvis with contrast revealed normal liver and biliary system, normal pancreas, stable 5 mm stone in the right distal ureter with no hydronephrosis or hydroureter, no evidence of obstructive uropathy. She underwent nuclear stress test today that revealed previous myocardial injury without evidence of acute stress-induced myocardial ischemia. She has significant history for GERD and Sanchez's esophagus according to the patient. Most likely symptoms are secondary to Sanchez's esophagus and GERD. ACS ruled out. Plan: IV Protonix, start Carafate, IV Phenergan, Mylanta as needed, anticipate discharge home tomorrow. #2 GERD/Sanchez's esophagus: According to the patient, she has been having this pain for almost 2 months, has been using Prilosec with minimal improvement. She mentioned that she had upper EGD [address] Tejada, no documents available. It revealed Sanchez's esophagus, severe according to the patient. Plan: IV Protonix, Carafate, Mylanta as needed, IV Phenergan. #3 elevated d-dimer: Unclear etiology, CTA chest negative for PE or dissection. Respiratory status stable, maintaining pulse ox on room air. #4 CAD: Stable, plan as above. Continue aspirin, statins, Coreg and lisinopril. #5 hypertension: Blood pressure stable, continue Coreg and lisinopril. #6 chronic pain syndrome: Continue MS Contin and start IV morphine as needed. #7 DVT prophylaxis: Subcu Lovenox. This note was generated with [employer] dictation software. It may contain incorrect words, spelling, and punctuation that were not noted in checking the note before signing. Code Visit OBSV E&M: 48329 Subsequent observation care L2
[2018-07-22] MEDS: Morphine 2 MG/ML Syringe IV (14:25)
[2018-07-22] MEDS: Enoxaparin 40 MG/0.4 ML Syringe SC (14:25)
[2018-07-22] MEDS: 0.9% NaCl Peripheral Flush Adult/Peds IV ×2 (14:25→21:19)
--- NOTE | 2018-07-22 20:02 | PCM.CONS.C ---
Problem List (1) Chest pain Status: Acute (2) Atherosclerotic heart disease of [place] coronary artery without angina pectoris Status: Chronic Qualifiers: [place] vs. transplanted heart: unspecified whether [place] or transplanted heart Qualified Code(s): I25.10 - Atherosclerotic heart disease of [place] coronary artery without angina pectoris Comment: Mild (3) Cardiomyopathy Status: Chronic Qualifiers: Cardiomyopathy type: unspecified Qualified Code(s): I42.9 - Cardiomyopathy, unspecified (4) Hyperlipidemia Status: Chronic Qualifiers: Hyperlipidemia type: unspecified Qualified Code(s): E78.5 - Hyperlipidemia, unspecified (5) Hypertension Status: Chronic Qualifiers: Hypertension type: essential hypertension Qualified Code(s): I10 - Essential (primary) hypertension Reason for Consult Date of Consultation: 07/22/18 History of Present Illness: The patient is a 62 year old white female with a past cardiovascular history which is included underlying CAD, non-ST segment elevation RI, ischemic mediated cardiomyopathy, hyperlipidemia, and hypertension who is referred for reevaluation of chest discomfort. She states she has been having chest discomfort which she believes is related to her gastrointestinal related issues. She does not believe this is cardiac. However it is bothersome to her that she presented to the hospital for further evaluation. She states she has had no acute respiratory issues and no obvious evidence of ongoing peripheral pitting edema. There is been no near syncope or syncope. She is undergone cardiac enzymes which have been negative. Her ECG had demonstrated sinus rhythm with T wave abnormality. She was subsequently evaluated with a pharmacologic stress nuclear imaging study. This demonstrated findings appearing compatible with an area of previous myocardial injury/infarction with no obvious myocardial perfusion changes considered diagnostic for associated stress-induced myocardial ischemia. [] Past Medical History Allergies/Adverse Reactions: Allergies No Known Allergies Allergy (Verified 12/30/17 14:29) Home Medications: Ambulatory Orders Medication Instructions Recorded Lisinopril [Zestril] 10 mg PO BID 11/18/15 Esomeprazole Mag Trihydrate 40 mg PO DAILY 10/03/16 [Nexium] lorazepam 1 mg tablet 1 mg PO BID tab 11/16/17 Atorvastatin Calcium [Lipitor] 20 mg PO QHS #30 tab 12/19/17 carvedilol 12.5 mg tablet 12.5 mg PO BID #60 tab 01/19/18 Aspirin E.C. [Ecotrin] 81 mg PO DAILY@0800 07/21/18 Morphine Sulfate/Naltrexone 1 cap PO DAILY 07/21/18 [Embeda ER 60-2.4 mg Capsule] Oxycodone HCl/Acetaminophen 1 tab PO TID PRN PRN 07/21/18 [Percocet 5-325] Promethazine HCl 25 mg PO PRN PRN 07/21/18 Past Medical History (Chronic Problems): Chronic Problems (Last Updated 07/22/18 @ 14:09 by Germán Mittal MD) Tobacco use (Chronic) EVELYN (obstructive sleep apnea) (Chronic) Obesity (BMI 30.0-34.9) (Chronic) TIA (transient ischemic attack) (Chronic) GERD (gastroesophageal reflux disease) (Chronic) Anxiety and depression (Chronic) NSTEMI (non-ST elevated myocardial infarction) (Chronic) Cardiomyopathy (Chronic) Hyperlipidemia (Chronic) Atherosclerotic heart disease of [place] coronary artery without angina pectoris (Chronic) Mild Hypertension (Chronic) Surgical History: appendectomy, hysterectomy Psychiatric History: Anxiety, Depression 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 pertinent 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 history - *Family History Maternal Family History: Family History (Last Reviewed 07/22/18 @ 04:07 by Thor Daniel MD) Mother Hypertension CAD (coronary artery disease) CVA (cerebral vascular accident) Myocardial infarction Grandmother Myocardial infarction History Items: Heart Disease Paternal Family History: Family History (Last Reviewed 07/22/18 @ 04:07 by Thor Daniel MD) Mother Hypertension CAD (coronary artery disease) CVA (cerebral vascular accident) Myocardial infarction Grandmother Myocardial infarction History Items: No pertinent history Smoking Status: Current every day smoker Tobacco Use: Cigarettes Alcohol: Occasional Drugs: None Review of Systems - Review of Systems General: Denies: Fever, Night Sweats, Fatigue Cardiovascular: Reports: Chest Discomfort, Chest Discomfort at Rest. Denies: Shortness of Breath, Orthopnea, PND, Peripheral Edema, Palpitations, Lightheadedness, Dizziness, Near Syncope, Syncope Respiratory: Denies: Cough, Sputum Production, Hemoptysis Gastrointestinal: Denies: Hematemesis, Hematochezia, Melena Genitourinary: Denies: Dysuria, Hematuria Skin: Denies: Rash Subjectve: This is a 62-year-old white female who appears to be resting comfortably at the moment in no acute distress. Objective: Vital Signs Temp Pulse Resp BP Pulse Ox 98.1 F 63 16 102/68 94 07/22/18 16:30 07/22/18 16:30 07/22/18 16:30 07/22/18 16:30 07/22/18 16:30 Oxygen Flow Rate (L/min) 2 Oxygen Delivery Method Room Air Weight: 182 lb 1.629 oz Body Mass Index (BMI) 30.3 Finger Stick Blood Glucose 76 Intake and Output for Last 24 Hours 07/20/18 07/21/18 07/22/18 23:59 23:59 23:59 Intake Total 821 / 821 1690 / 1690 Balance 821 / 821 1690 / 1690 General: Awake, Alert, Oriented x 3, Cooperative, No Acute Distress HEENT: Atraumatic, Normocephalic, PERRL, EOMI, Sclera Non Icteric Oral: Moist Mucosa Neck: Supple, Good ROM, No JVD Lungs: Clear to auscultation Cardiovascular: Regular Rhythm, Normal S1, Normal S2 Abdomen: Bowel Sounds Present, Soft, Non Tender Extremities: No Cyanosis, No Clubbing, No edema Neurological: No Focal Motor or Sensory Deficit Psych/Mental Status: Appropriate, Normal Affect 07/21/18 20:22: Troponin I < 0.015 07/21/18 23:14: Troponin I < 0.015 07/22/18 02:34: Troponin I < 0.015 07/22/18 02:34: Sodium 145, Potassium 3.8, Chloride 109 H, Carbon Dioxide 29.0, Anion Gap 7, BUN 13, Creatinine 0.69, Est GFR (MDRD) Af Amer 112, Est GFR (MDRD) Non-Af 92, BUN/Creatinine Ratio 19.0, Glucose 81, Calcium 8.3 L, Triglycerides 141, Cholesterol 207 H, LDL Cholesterol 149 H, VLDL Cholesterol 28, HDL Cholesterol 30 L 07/22/18 02:34: PT 13.2, INR 1.0 07/22/18 06:06: APTT 29.8 Rhythm: Sinus rhythm EKG: As noted above ECHO: 12/18/2017: Left ventricle reported as normal in size and systolic function with an LVEF of 55% with mild concentric LVH with decreased diastolic compliance Stress Test: 07/22/2018: Impression: 1. Rest and stress SPECT cardio nuclear imaging demonstrate myocardial perfusion changes appearing compatible with an area of previous myocardial injury/infarction involving portions of the distal anterior and distal anterolateral segments and apical segments with no myocardial perfusion changes considered a diagnostic for associated stress-induced myocardial ischemia. 2. The gated Cardiolite study reports an LVEF of 63%. Cardiac Cath: 12/18/2017: Left main-no angiographic disease; LAD-proximal 50% stenosis; mid to distal 60% stenosis; small diagonal branch #1 with 100% mid stenosis; left circumflex coronary artery with mild luminal irregularity; intermediate ramus coronary artery with proximal 40% stenosis; right coronary artery with proximal 40-50% stenosis and mid to distal 60% stenosis; right posterior lateral ventricular branch with proximal 60% stenosis Chest CT scan per radiology: No great vessel disease: Please see the official report Assessment/Plan 1. Chest pain The patient presents with chest pain which she does not believe is cardiovascular related. However based upon her cardiovascular history she has undergone evaluation. Her cardiac enzymes are negative. Her ECG demonstrated a T wave abnormality. Her pharmacologic stress nuclear imaging study is as noted above. At the present time she should continue cardiovascular risk factor evaluation medical therapy. There is no definitive evidence of a recurrent acute coronary syndrome by laboratory studies. She has had no obvious evidence of stress-induced myocardial ischemia by her pharmacologic stress nuclear imaging study. Thus it does not appear she requires repeat diagnostic cardiac catheterization at this time. She should continue noncardiac evaluation of her chest discomfort. 2. CAD status post non-ST segment elevation RI-remote The patient has a history of previous CAD as previously described. Her current rule out RI protocol appears to be negative by cardiac enzymes. Her pharmacologic stress nuclear imaging study demonstrates findings compatible with a previous myocardial injury/infarction but no obvious evidence of ongoing myocardial ischemia. Thus at the present time would be recommended she continue risk factor modification medical therapy. It does not appear she requires repeat diagnostic cardiac catheterization. This could change depending upon her clinical course and future findings. 3. Ischemic mediated cardiomyopathy The patient does have underlying ischemic mediated cardiomyopathy based upon the presence of her underlying CAD and noninvasive findings. At the present time she appears to be without any acute symptoms of CHF or pulmonary edema. She should continue medical management and follow-up as deemed appropriate. 4. Hyperlipidemia The patient should continue risk factor evaluation and care. 5. Hypertension The patient's blood pressure can be monitored. Her medications can be adjusted as needed. Comment: The above was discussed and reviewed with the [facility] staff. This note was generated with [email or web address] software. It may contain incorrect words, spelling, and punctuation that were not noted in checking the note before signing.
--- NOTE | 2018-07-22 20:07 | CON.PCM_ITS ---
Problem List (1) Chest pain Status: Acute (2) Atherosclerotic heart disease of [place] coronary artery without angina pectoris Status: Chronic Qualifiers: [place] vs. transplanted heart: unspecified whether [place] or transplanted heart Qualified Code(s): I25.10 - Atherosclerotic heart disease of [place] coronary artery without angina pectoris Comment: Mild (3) Cardiomyopathy Status: Chronic Qualifiers: Cardiomyopathy type: unspecified Qualified Code(s): I42.9 - Cardiomyopathy, unspecified (4) Hyperlipidemia Status: Chronic Qualifiers: Hyperlipidemia type: unspecified Qualified Code(s): E78.5 - Hyperlipidemia, unspecified (5) Hypertension Status: Chronic Qualifiers: Hypertension type: essential hypertension Qualified Code(s): I10 - Essential (primary) hypertension Reason for Consult Date of Consultation: 07/22/18 History of Present Illness: The patient is a 62 year old white female with a past cardiovascular history which is included underlying CAD, non-ST segment elevation [place], ischemic mediated cardiomyopathy, hyperlipidemia, and hypertension who is referred for reevaluation of chest discomfort. She states she has been having chest discomfort which she believes is related to her gastrointestinal related issues. She does not believe this is cardiac. However it is bothersome to her that she presented to the hospital for further evaluation. She states she has had no acute respiratory issues and no obvious evidence of ongoing peripheral pitting edema. There is been no near syncope or syncope. She is undergone cardiac enzymes which have been negative. Her ECG had demonstrated sinus rhythm with T wave abnormality. She was subsequently evaluated with a pharmacologic stress nuclear imaging study. This demonstrated findings appearing compatible with an area of previous myocardial injury/infarction with no obvious myocardial perfusion changes considered diagnostic for associated stress-induced myocardial ischemia. [] Past Medical History Allergies/Adverse Reactions: Allergies No Known Allergies Allergy (Verified 12/30/17 14:29) Home Medications: Ambulatory Orders Medication Instructions Recorded Lisinopril [Zestril] 10 mg PO BID 11/18/15 Esomeprazole Mag Trihydrate 40 mg PO DAILY 10/03/16 [Nexium] lorazepam 1 mg tablet 1 mg PO BID tab 11/16/17 Atorvastatin Calcium [Lipitor] 20 mg PO QHS #30 tab 12/19/17 carvedilol 12.5 mg tablet 12.5 mg PO BID #60 tab 01/19/18 Aspirin E.C. [Ecotrin] 81 mg PO DAILY@0800 07/21/18 Morphine Sulfate/Naltrexone 1 cap PO DAILY 07/21/18 [Embeda ER 60-2.4 mg Capsule] Oxycodone HCl/Acetaminophen 1 tab PO TID PRN PRN 07/21/18 [Percocet 5-325] Promethazine HCl 25 mg PO PRN PRN 07/21/18 Past Medical History (Chronic Problems): Chronic Problems (Last Updated 07/22/18 @ 14:09 by Germán Mittal MD) Tobacco use (Chronic) EVELYN (obstructive sleep apnea) (Chronic) Obesity (BMI 30.0-34.9) (Chronic) TIA (transient ischemic attack) (Chronic) GERD (gastroesophageal reflux disease) (Chronic) Anxiety and depression (Chronic) NSTEMI (non-ST elevated myocardial infarction) (Chronic) Cardiomyopathy (Chronic) Hyperlipidemia (Chronic) Atherosclerotic heart disease of [place] coronary artery without angina pectoris (Chronic) Mild Hypertension (Chronic) Surgical History: appendectomy, hysterectomy Psychiatric History: Anxiety, Depression 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 COLLECTION OFFICER history - *Family History Maternal Family History: Family History (Last Reviewed 07/22/18 @ 04:07 by Thor Daniel MD) Mother Hypertension CAD (coronary artery disease) CVA (cerebral vascular accident) Myocardial infarction Grandmother Myocardial infarction History Items: Heart Disease Paternal Family History: Family History (Last Reviewed 07/22/18 @ 04:07 by Thor Daniel MD) Mother Hypertension CAD (coronary artery disease) CVA (cerebral vascular accident) Myocardial infarction Grandmother Myocardial infarction History Items: No pertinent history Smoking Status: Current every day smoker Tobacco Use: Cigarettes Alcohol: Occasional Drugs: None Review of Systems - Review of Systems General: Denies: Fever, Night Sweats, Fatigue Cardiovascular: Reports: Chest Discomfort, Chest Discomfort at Rest. Denies: Shortness of Breath, Orthopnea, PND, Peripheral Edema, Palpitations, Lightheadedness, Dizziness, Near Syncope, Syncope Respiratory: Denies: Cough, Sputum Production, Hemoptysis Gastrointestinal: Denies: Hematemesis, Hematochezia, Melena Genitourinary: Denies: Dysuria, Hematuria Skin: Denies: Rash Subjectve: This is a 62-year-old white female who appears to be resting comfortably at the moment in no acute distress. Objective: Vital Signs Temp Pulse Resp BP Pulse Ox 98.1 F 63 16 102/68 94 07/22/18 16:30 07/22/18 16:30 07/22/18 16:30 07/22/18 16:30 07/22/18 16:30 Oxygen Flow Rate (L/min) 2 Oxygen Delivery Method Room Air Weight: 182 lb 1.629 oz Body Mass Index (BMI) 30.3 Finger Stick Blood Glucose 76 Intake and Output for Last 24 Hours 07/20/18 07/21/18 07/22/18 23:59 23:59 23:59 Intake Total 821 / 821 1690 / 1690 Balance 821 / 821 1690 / 1690 General: Awake, Alert, Oriented x 3, Cooperative, No Acute Distress HEENT: Atraumatic, Normocephalic, PERRL, EOMI, Sclera Non Icteric Oral: Moist Mucosa Neck: Supple, Good ROM, No JVD Lungs: Clear to auscultation Cardiovascular: Regular Rhythm, Normal S1, Normal S2 Abdomen: Bowel Sounds Present, Soft, Non Tender Extremities: No Cyanosis, No Clubbing, No edema Neurological: No Focal Motor or Sensory Deficit Psych/Mental Status: Appropriate, Normal Affect 07/21/18 20:22: Troponin I < 0.015 07/21/18 23:14: Troponin I < 0.015 07/22/18 02:34: Troponin I < 0.015 07/22/18 02:34: Sodium 145, Potassium 3.8, Chloride 109 H, Carbon Dioxide 29.0, Anion Gap 7, BUN 13, Creatinine 0.69, Est GFR (MDRD) Af Amer 112, Est GFR (MDRD) Non-Af 92, BUN/Creatinine Ratio 19.0, Glucose 81, Calcium 8.3 L, Triglycerides 141, Cholesterol 207 H, LDL Cholesterol 149 H, VLDL Cholesterol 28, HDL Cholesterol 30 L 07/22/18 02:34: PT 13.2, INR 1.0 07/22/18 06:06: APTT 29.8 Rhythm: Sinus rhythm EKG: As noted above ECHO: 12/18/2017: Left ventricle reported as normal in size and systolic function with an LVEF of 55% with mild concentric LVH with decreased diastolic compliance Stress Test: 07/22/2018: Impression: 1. Rest and stress SPECT cardio nuclear imaging demonstrate myocardial perfusion changes appearing compatible with an area of previous myocardial inj ury/infarction involving portions of the distal anterior and distal anterolateral segments and apical segments with no myocardial perfusion changes considered a diagnostic for associated stress-induced myocardial ischemia. 2. The gated Cardiolite study reports an LVEF of 63%. Cardiac Cath: 12/18/2017: Left main-no angiographic disease; LAD-proximal 50% stenosis; mid to distal 60% stenosis; small diagonal branch #1 with 100% mid stenosis; left circumflex coronary artery with mild luminal irregularity; intermediate ramus coronary artery with proximal 40% stenosis; right coronary artery with proximal 40-50% stenosis and mid to distal 60% stenosis; right posterior lateral ventricular branch with proximal 60% stenosis Chest CT scan per radiology: No great vessel disease: Please see the official report Assessment/Plan 1. Chest pain The patient presents with chest pain which she does not believe is cardiovascular related. However based upon her cardiovascular history she has undergone evaluation. Her cardiac enzymes are negative. Her ECG demonstrated a T wave abnormality. Her pharmacologic stress nuclear imaging study is as noted above. At the present time she should continue cardiovascular risk factor evaluation medical therapy. There is no definitive evidence of a recurrent acute coronary syndrome by laboratory studies. She has had no obvious evidence of stress- induced myocardial ischemia by her pharmacologic stress nuclear imaging study. Thus it does not appear she requires repeat diagnostic cardiac catheterization a t this time. She should continue noncardiac evaluation of her chest discomfort. 2. CAD status post non-ST segment elevation [place]-remote The patient has a history of previous CAD as previously described. Her current rule out [place] protocol appears to be negative by cardiac enzymes. Her pharmacologic stress nuclear imaging study demonstrates findings compatible with a previous myocardial injury/infarction but no obvious evidence of ongoing myocardial ischemia. Thus at the present time would be recommended she continue risk factor modification medical therapy. It does not appear she requires repeat diagnostic cardiac catheterization. This could change depending upon her clinical course and future findings. 3. Ischemic mediated cardiomyopathy The patient does have underlying ischemic mediated cardiomyopathy based upon the presence of her underlying CAD and noninvasive findings. At the present time she appears to be without any acute symptoms of CHF or pulmonary edema. She should continue medical management and follow-up as deemed appropriate. 4. Hyperlipidemia The patient should continue risk factor evaluation and care. 5. Hypertension The patient's blood pressure can be monitored. Her medications can be adjusted as needed. Comment: The above was discussed and reviewed with the [facility] staff. This note was generated with [employer] dictation software. It may contain incorrect words, spelling, and punctuation that were not noted in checking the note before signing.
[2018-07-22] MEDS: Tamsulosin HCl 0.4 MG Capsule PO (21:13)
[2018-07-22] MEDS: Atorvastatin Calcium 20 MG Tablet PO (21:13)
--- NOTE | 2018-07-22 23:32 | NURSING ---
Pt states she is feeling anxious. She states she is feeling like she's having trouble breathing and is having trouble swallowing. Pt states she feels like this at home. States the feeling is getting worse. VS taken at this time. Denies chest pain, but reports back pain. Will continue to monitor.
[2018-07-23 02:55] VITALS: PULSE 72
[2018-07-23 03:23] VITALS: BP 118/53; PULSE 69; RESP 13; TEMP 37.2; O2SAT 95
--- NOTE | 2018-07-23 03:24 | NURSING ---
Pt satting in high 80s. When asked to take deep breaths, saturations improved to mid 90s.
[2018-07-23] MEDS: proMETHazine 25 MG/ML Syringe 6.25 MG IV (03:58)
[2018-07-23] MEDS: 0.9% NaCl Peripheral Flush Adult/Peds IV (03:58)
[2018-07-23] MEDS: Sucralfate 1 GM Tablet PO (06:29)
[2018-07-23 06:51] VITALS: O2SAT 90
[2018-07-23 07:17] VITALS: PULSE 61
--- NOTE | 2018-07-23 08:03 | DCINST_ITS ---
- Discharge Diagnoses Current Active Problems: Current Active and Chronic Problems (Last Updated 07/22/18 @ 14:09 by Germán Mittal MD) Chest pain (Acute) You will use the following diet at home:: Cardiac Your food should be the consistency of: Regular Discharge Activity: Return to Normal Activity Weight Bearing Status: Weight bearing as tolerated Call your doctor if you observe: Fever of 101 or Higher, Shortness of breath, Dizziness, Fainting spells, Chest pain, Increased palpitations (irregular heartbeat), Uncontrolled pain Instructions: What Is [place] Esophagus?, What Is GERD?, Discharge Instructions for Gastroesophageal Reflux Disease (GERD) Allergies/Adverse Reactions: Allergies No Known Allergies Allergy (Verified 12/30/17 14:29) Medications to take at Discharge Lisinopril [Zestril] 10 mg PO BID 11/18/15 lorazepam 1 mg tablet 1 mg PO BID tab 11/16/17 Atorvastatin Calcium [Lipitor] 20 mg PO QHS #30 tab 12/19/17 carvedilol 12.5 mg tablet 12.5 mg PO BID #60 tab 01/19/18 Aspirin E.C. [Ecotrin] 81 mg PO DAILY@0800 07/21/18 Morphine Sulfate/Naltrexone [Embeda ER 60-2.4 mg Capsule] 1 cap PO DAILY 07/21/18 Oxycodone HCl/Acetaminophen [Percocet 5-325] 1 tab PO TID PRN PRN 07/21/18 Promethazine HCl 25 mg PO PRN PRN 07/21/18 Pantoprazole Sodium [Protonix] 40 mg PO BID #30 tablet 07/23/18 Sucralfate [Carafate] 1 gm PO 1HR_ACHS #30 tablet 07/23/18 proMETHazine tablet [Phenergan tablet] 25 mg PO Q8H PRN PRN #14 tablet 07/23/18 The following prescriptions were given: proMETHazine tablet [Phenergan tablet] 25 mg PO Q8H PRN PRN #14 tablet PRN Reason: Nausea/Vomiting Sucralfate [Carafate] 1 gm PO 1HR_ACHS #30 tablet Pantoprazole Sodium [Protonix] 40 mg PO BID #30 tablet Primary Care Physician: Chucky Martinez MD [Primary Care Provider] - Please follow up with your Primary Care Physician in: 1 week. Test Results: Test results from this visit will be discussed in further detail at your follow- up appointment, if applicable.
[2018-07-23 08:31] VITALS: BP 153/82; PULSE 70; RESP 15; TEMP 37.2; O2SAT 94
[2018-07-23] MEDS: Lisinopril 10 MG Tablet PO (08:36)
[2018-07-23] MEDS: Carvedilol 12.5 MG Tablet PO (08:37)
[2018-07-23] MEDS: Senna/Docusate Sodium 1 Tablet 2 TABLET PO (08:37)
[2018-07-23] MEDS: Aspirin E.C. 81 MG Tablet PO (08:37)
[2018-07-23] MEDS: LORazepam 1 MG Tablet PO (08:54)
--- NOTE | 2018-07-23 11:46 | PCM.DC.SUM ---
Discharge Date and Diagnosis Date of Admission: 07/21/18 Date of Discharge: 07/23/18 - Primary Discharge Diagnosis #1 chest pain/EKG changes, negative cardiac workup including stress test #2 GERD/Sanchez's esophagus. #3 elevated d-dimer. - Secondary Discharge Diagnosis Chronic Problems (Last Updated 07/22/18 @ 14:09 by Germán Mittal MD) Tobacco use (Chronic) EVELYN (obstructive sleep apnea) (Chronic) Obesity (BMI 30.0-34.9) (Chronic) TIA (transient ischemic attack) (Chronic) GERD (gastroesophageal reflux disease) (Chronic) Anxiety and depression (Chronic) NSTEMI (non-ST elevated myocardial infarction) (Chronic) Cardiomyopathy (Chronic) Hyperlipidemia (Chronic) Atherosclerotic heart disease of [place] coronary artery without angina pectoris (Chronic) Mild Hypertension (Chronic) Hospital Course and Treatment Imaging Results: Clinical Impression(s) from Imaging Studies Abdomen/Pelvis CT 07/21/18 16:37 IMPRESSION: Stable 5 mm stone in the right distal ureter with no significant right hydroureteronephrosis. Stable punctate nonobstructing right renal collecting system stones. No left-sided stones. No left-sided hydronephrosis. Dilated common bile duct with no ductal stones identified. No bowel obstruction or inflammation. Electronically Signed: Raji Cheng, at 17:49 EST Tel , Service support , Chest CTA 07/21/18 16:37 IMPRESSION: No evidence of pulmonary embolus. Atherosclerotic plaque throughout the thoracic aorta. No evidence of thoracic aortic aneurysm or dissection. Coronary artery disease. Mild emphysema. No pulmonary infiltrates or pleural effusions. Small hiatal hernia. Electronically Signed: Raji Cheng, at 17:41 EST Tel , Service support , Dr. Best, cardiology. Operations: None Procedures: EKG, Stress test Summary of Care Provided: Patient seen and examined on the day of discharge and appeared to be stable to be discharged home. Had epigastric and chest pain improved, was able to eat last night. Her vital signs are stable. The patient is a 62 year old F admitted because of atypical chest pain for evaluation. His EKG revealed normal sinus rhythm with you have inversion in leads V2, V3 and V4 and those changes are more prominent compared to her previous EKGs and without evidence of acute ST elevation. Her troponin was negative x3. Because her pain was in the epigastric as well as retrosternal region, CT scan abdomen and pelvis performed and showed small right kidney stone without evidence of hydronephrosis or hydroureter, it showed dilated CBD and without evidence of bowel obstruction. Her routine blood work was unremarkable. Her LFT and lipase were normal. She was found to have elevated d-dimer for which CTA chest done and showed no evidence of PE or dissection. The patient had a history of GERD and according to her, history of Sanchez's esophagus, had upper EGD 2 years ago and she has been on Prilosec which has been of little help. She underwent nuclear stress test that revealed previous myocardial injury without evidence of acute stress-induced myocardial ischemia. Her chest pain attributed to GERD and Sanchez's esophagus. ACS ruled out. Her vital signs remained stable throughout admission. She was treated with IV Protonix, Carafate, Mylanta as needed and IV Phenergan for nausea and vomiting. On the day of discharge, patient mentioned that her symptoms slightly improved. Patient discharged home in a stable medical condition, discharged on Protonix twice daily, Carafate 4 times a day, recommended follow-up with PCP in 1 week. - Physical Exam General: Alert, Oriented x3, Cooperative, No apparent distress HEENT: Atraumatic, PERRLA, EOMI, Normocephalic Oral: Moist Mucosa, No Gingival or Mucosal Lesions/ Ulcerations Neck: Supple, No JVD, Negative Carotid Bruits, Trachea Midline, Thyroid Normal Size and Texture Lungs: Clear to auscultation, Normal air movement, No rhonchi, No wheeze, No rales Cardiovascular: Regular rate, Regular Rhythm, Normal S1, Normal S2 Abdomen: Bowel Sounds Present, Soft, Non Tender, Non-Distended, No Hepato-splenomegaly Extremities: No clubbing, No cyanosis, No edema Skin: No rashes, No breakdown Lymphatic: No Cervical, Supraclavicular, or Inguinal Adenopathy Neurological: Cranial nerves II-XII grossly intact, Neuro grossly intact Psych/Mental Status: Normal Affect, Appropriate Vital Signs Temp Pulse Resp BP Pulse Ox 98.9 F 70 15 153/82 H 94 07/23/18 08:31 07/23/18 08:31 07/23/18 08:31 07/23/18 08:31 07/23/18 08:31 Oxygen Flow Rate (L/min) 2 Oxygen Delivery Method Room Air Weight: 182 lb 1.629 oz Body Mass Index (BMI) 30.3 Finger Stick Blood Glucose 76 Intake and Output for Last 24 Hours 07/21/18 07/22/18 07/23/18 23:59 23:59 23:59 Intake Total 821 / 821 2225 / 6 Balance 821 / 821 2225 / 2225 Discharge Activity: Return to Normal Activity Weight Bearing Status: Weight bearing as tolerated Call your doctor if you observe: Fever of 101 or Higher, Shortness of breath, Dizziness, Fainting spells, Chest pain, Increased palpitations (irregular heartbeat), Uncontrolled pain Home Medications: Medications to take at Discharge Lisinopril [Zestril] 10 mg PO BID 11/18/15 lorazepam 1 mg tablet 1 mg PO BID tab 11/16/17 Atorvastatin Calcium [Lipitor] 20 mg PO QHS #30 tab 12/19/17 carvedilol 12.5 mg tablet 12.5 mg PO BID #60 tab 01/19/18 Aspirin E.C. [Ecotrin] 81 mg PO DAILY@0800 07/21/18 Morphine Sulfate/Naltrexone [Embeda ER 60-2.4 mg Capsule] 1 cap PO DAILY 07/21/18 Oxycodone HCl/Acetaminophen [Percocet 5-325] 1 tab PO TID PRN PRN 07/21/18 Promethazine HCl 25 mg PO PRN PRN 07/21/18 Pantoprazole Sodium [Protonix] 40 mg PO BID #30 tablet 07/23/18 Sucralfate [Carafate] 1 gm PO 1HR_ACHS #30 tablet 07/23/18 proMETHazine tablet [Phenergan tablet] 25 mg PO Q8H PRN PRN #14 tablet 07/23/18 Following Prescrptions Were Given to Patient: proMETHazine tablet [Phenergan tablet] 25 mg PO Q8H PRN PRN #14 tablet PRN Reason: Nausea/Vomiting Sucralfate [Carafate] 1 gm PO 1HR_ACHS #30 tablet Pantoprazole Sodium [Protonix] 40 mg PO BID #30 tablet Primary Care Physician: Chucky Martinez MD [Primary Care Provider] - Please follow up with your Primary Care Physician in: 1 week. Patient Instructions: What Is GERD?, What Is Sanchez Esophagus?, Discharge Instructions for Gastroesophageal Reflux Disease (GERD) Disposition: Home Minutes spent on discharge:: 26 Patient Condition:: Stable Medical Necessity - Tobacco Use Smoking Status: Current every day smoker Tobacco Use: Cigarettes Meaningful Use Info Meaningful Use Diagnoses (Choose all that apply): None applicable Code Visit OBSV E&M: 32196 Observation care discharge
--- NOTE | 2018-07-23 11:50 | DS.PCM_ITS ---
Discharge Date and Diagnosis Date of Admission: 07/21/18 Date of Discharge: 07/23/18 - Primary Discharge Diagnosis #1 chest pain/EKG changes, negative cardiac workup including stress test #2 GERD/Sanchez's esophagus. #3 elevated d-dimer. - Secondary Discharge Diagnosis Chronic Problems (Last Updated 07/22/18 @ 14:09 by Germán Mittal MD) Tobacco use (Chronic) EVELYN (obstructive sleep apnea) (Chronic) Obesity (BMI 30.0-34.9) (Chronic) TIA (transient ischemic attack) (Chronic) GERD (gastroesophageal reflux disease) (Chronic) Anxiety and depression (Chronic) NSTEMI (non-ST elevated myocardial infarction) (Chronic) Cardiomyopathy (Chronic) Hyperlipidemia (Chronic) Atherosclerotic heart disease of [place] coronary artery without angina pectoris (Chronic) Mild Hypertension (Chronic) Hospital Course and Treatment Imaging Results: Clinical Impression(s) from Imaging Studies Abdomen/Pelvis CT 07/21/18 16:37 IMPRESSION: Stable 5 mm stone in the right distal ureter with no significant right hydroureteronephrosis. Stable punctate nonobstructing right renal collecting system stones. No left-sided stones. No left-sided hydronephrosis. Dilated common bile duct with no ductal stones identified. No bowel obstruction or inflammation. Electronically Signed: Raji Cheng, at 17:49 EST Tel , Service support , Chest CTA 07/21/18 16:37 IMPRESSION: No evidence of pulmonary embolus. Atherosclerotic plaque throughout the thoracic aorta. No evidence of thoracic aortic aneurysm or dissection. Coronary artery disease. Mild emphysema. No pulmonary infiltrates or pleural effusions. Small hiatal hernia. Electronically Signed: Raji Cheng, at 17:41 EST Tel , Service support , Dr. Best, cardiology. Operations: None Procedures: EKG, Stress test Summary of Care Provided: Patient seen and examined on the day of discharge and appeared to be stable to be discharged home. Had epigastric and chest pain improved, was able to eat last night. Her vital signs are stable. The patient is a 62 year old F admitted because of atypical chest pain for evaluation. His EKG revealed normal sinus rhythm with you have inversion in leads V2, V3 and V4 and those changes are more prominent compared to her previous EKGs and without evidence of acute ST elevation. Her troponin was negative x3. Because her pain was in the epigastric as well as retrosternal region, CT scan abdomen and pelvis performed and showed small right kidney stone without evidence of hydronephrosis or hydroureter, it showed dilated CBD and without evidence of bowel obstruction. Her routine blood work was unremarkable. Her LFT and lipase were normal. She was found to have elevated d-dimer for which CTA chest done and showed no evidence of PE or dissection. The patient had a history of GERD and according to her, history of Sanchez's esophagus, had upper EGD 2 years ago and she has been on Prilosec which has been of little help. She underwent nuclear stress test that revealed previous myocardial injury without evidence of acute stress-induced myocardial ischemia. Her chest pain attributed to GERD and Sanchez's esophagus. ACS ruled out. Her vital signs remained stable throughout admission. She was treated with IV Protonix, Carafate, Mylanta as needed and IV Phenergan for nausea and vomiting. On the day of discharge, patient mentioned that her symptoms slightly improved. Patient discharged home in a stable medical condition, discharged on Protonix twice daily, Carafate 4 times a day, recommended follow-up with PCP in 1 week. - Physical Exam General: Alert, Oriented x3, Cooperative, No apparent distress HEENT: Atraumatic, PERRLA, EOMI, Normocephalic Oral: Moist Mucosa, No Gingival or Mucosal Lesions/ Ulcerations Neck: Supple, No JVD, Negative Carotid Bruits, Trachea Midline, Thyroid Normal Size and Texture Lungs: Clear to auscultation, Normal air movement, No rhonchi, No wheeze, No rales Cardiovascular: Regular rate, Regular Rhythm, Normal S1, Normal S2 Abdomen: Bowel Sounds Present, Soft, Non Tender, Non-Distended, No Hepato- splenomegaly Extremities: No clubbing, No cyanosis, No edema Skin: No rashes, No breakdown Lymphatic: No Cervical, Supraclavicular, or Inguinal Adenopathy Neurological: Cranial nerves II-XII grossly intact, Neuro grossly intact Psych/Mental Status: Normal Affect, Appropriate Vital Signs Temp Pulse Resp BP Pulse Ox 98.9 F 70 15 153/82 H 94 07/23/18 08:31 07/23/18 08:31 07/23/18 08:31 07/23/18 08:31 07/23/18 08:31 Oxygen Flow Rate (L/min) 2 Oxygen Delivery Method Room Air Weight: 182 lb 1.629 oz Body Mass Index (BMI) 30.3 Finger Stick Blood Glucose 76 Intake and Output for Last 24 Hours 07/21/18 07/22/18 07/23/18 23:59 23:59 23:59 Intake Total 821 / 821 2225 / 6 Balance 821 / 821 2225 / 2225 Discharge Activity: Return to Normal Activity Weight Bearing Status: Weight bearing as tolerated Call your doctor if you observe: Fever of 101 or Higher, Shortness of breath, Dizziness, Fainting spells, Chest pain, Increased palpitations (irregular heartbeat), Uncontrolled pain Home Medications: Medications to take at Discharge Lisinopril [Zestril] 10 mg PO BID 11/18/15 lorazepam 1 mg tablet 1 mg PO BID tab 11/16/17 Atorvastatin Calcium [Lipitor] 20 mg PO QHS #30 tab 12/19/17 carvedilol 12.5 mg tablet 12.5 mg PO BID #60 tab 01/19/18 Aspirin E.C. [Ecotrin] 81 mg PO DAILY@0800 07/21/18 Morphine Sulfate/Naltrexone [Embeda ER 60-2.4 mg Capsule] 1 cap PO DAILY 07/21/18 Oxycodone HCl/Acetaminophen [Percocet 5-325] 1 tab PO TID PRN PRN 07/21/18 Promethazine HCl 25 mg PO PRN PRN 07/21/18 Pantoprazole Sodium [Protonix] 40 mg PO BID #30 tablet 07/23/18 Sucralfate [Carafate] 1 gm PO 1HR_ACHS #30 tablet 07/23/18 proMETHazine tablet [Phenergan tablet] 25 mg PO Q8H PRN PRN #14 tablet 07/23/18 Following Prescrptions Were Given to Patient: proMETHazine tablet [Phenergan tablet] 25 mg PO Q8H PRN PRN #14 tablet PRN Reason: Nausea/Vomiting Sucralfate [Carafate] 1 gm PO 1HR_ACHS #30 tablet Pantoprazole Sodium [Protonix] 40 mg PO BID #30 tablet Primary Care Physician: Chucky Martinez MD [Primary Care Provider] - Please follow up with your Primary Care Physician in: 1 week. Patient Instructions: What Is GERD?, What Is Sanchez Esophagus?, Discharge Instructions for Gastroesophageal Reflux Disease (GERD) Disposition: Home Minutes spent on discharge:: 26 Patient Condition:: Stable Medical Necessity - Tobacco Use Smoking Status: Current every day smoker Tobacco Use: Cigarettes Meaningful Use Info Meaningful Use Diagnoses (Choose all that apply): None applicable Code Visit OBSV E&M: 57011 Observation care discharge
== END 2018-07-23 08:23 | disposition home or self-care (01) ==
LOC: ED 15:55 → PCU 20:01
PROVIDERS: Admitting Provider Hospitalist; Emergency Provider Emergency Medicine; Family Provider Family Medicine; PCP Family Medicine; Referring Provider Hospitalist; Visit Provider Hospitalist
DX: R07.89 Other chest pain (principal); K21.9 Gastro-esophageal reflux disease without esophagitis; K22.70 Barrett's esophagus without dysplasia; G47.33 Obstructive sleep apnea (adult) (pediatric); Z23 Encounter for immunization; E66.9 Obesity, unspecified; I25.10 Atherosclerotic heart disease of native coronary artery without angina pectoris; E78.5 Hyperlipidemia, unspecified; I10 Essential (primary) hypertension; I25.2 Old myocardial infarction; F17.220 Nicotine dependence, chewing tobacco, uncomplicated; R06.02 Shortness of breath; J44.9 Chronic obstructive pulmonary disease, unspecified; K44.9 Diaphragmatic hernia without obstruction or gangrene; G89.4 Chronic pain syndrome; N20.0 Calculus of kidney; Z68.30 Body mass index [BMI] 30.0-30.9, adult; Z71.3 Dietary counseling and surveillance; Z79.899 Other long term (current) drug therapy; Z79.82 Long term (current) use of aspirin
CPT/HCPCS: 36415; 71275; 74177; 78452; 80048; 80053; 80061; 81001; 83690; 84484; 85025; 85379; 85610; 85730; 93005; 93017; 96361; 96365; 96372; 96375; 96376; 97802; 99218; 99283; A9500; J7030; Q9967; 90686; A4216; G0378; J2405; J2785

== ENCOUNTER 2018-09-01 18:00 | Emergency (ER) | payer MEDICARE, SELFPAY ==
[2018-07-21 20:40] VITALS: BMI 30.3
[2018-09-01 18:01] VITALS: BP 231/130; PULSE 70; RESP 16; TEMP 37; O2SAT 96; BMI 30.5
--- NOTE | 2018-09-01 18:40 | EKG12_ITS ---
Test Reason : CP Blood Pressure : / mmHG Vent. Rate : 066 BPM Atrial Rate : 066 BPM P-R Int : 136 ms QRS Dur : 106 ms QT Int : 406 ms P-R-T Axes : 052 028 065 degrees QTc Int : 425 ms Normal sinus rhythm T wave abnormality, consider anterolateral ischemia Abnormal ECG Confirmed by GASPER MARTINEZ, PATRICK ([id number]), news copy editor LOPEZ VERA ([id number]) on 09/06/2018 1:04:23 PM Referred By: LAZARO/SHIRLENE Confirmed By:PATRICK JACKMAN MD
--- NOTE | 2018-09-01 18:45 | RAD_ITS ---
STUDY: X-RAY CHEST REASON FOR EXAM: Female, 62 years old. Chest pain TECHNIQUE: Single frontal view COMPARISON: May 04, 2018 FINDINGS: The lungs are expanded. Mild interstitial prominence. Normal size heart. Normal mediastinum and dru. Normal visualized pulmonary arteries. Calcified aortic arch and descending thoracic aorta. Normal visualized thoracic spine. Normal visualized ribs, clavicles, and shoulders. There is no demonstrated abnormality of the visualized soft tissue structures of the upper abdomen. RAD/Chest 1 View (Portable) IMPRESSION: Mild interstitial prominence. Electronically Signed: Denis Baird DO at 19:20 EST Tel [phone], Service support ,
[2018-09-01 19:07] LABS: Absolute Lymphocyte Count 2.78 X10^3/ul (0.83-4.51); Absolute Neutrophil Count 3.3 X10^3/uL (2.0-7.7); Basophil# 0.07 X10^3/uL; Eosinophil# 0.25 X10^3/uL; Eosinophils% 3.6 % (0-5); Hematocrit 39.5 % (37-47); Hemoglobin 13.4 g/dl (12.0-15.0); Lymphocyte # 2.78 X10^3/ul (4.0); Lymphocyte % 40.4 % (19-41); Mean Corp Hgb Conc 33.9 g/gl (32-36); Mean Corpuscular Hgb 31.8 pg (27.0-32.0); Mean Corpuscular Volume 93.8 fL (81-99); Monocyte# 0.49 X10^3/uL; Monocyte% 7.1 % (0-10); Neutrophil # 3.28 X10^3/uL (2.7-7.7); Neutrophil % 47.8 % (47-70); Platelet Count 247 K/mm3 (150-450); RBC Distribution Width CV 12.4 % (11.6-14.6); RBC Distribution Width SD 41.3 fl (35.1-43.9); Red Blood Count 4.21 M/mm3 (4.2-5.4); White Blood Count 6.9 K/mm3 (4.4-11.0)
[2018-09-01 19:12] LABS: Anion Gap 6 (5-15); BUN 13 mg/dL (7-18); BUN/Creat Ratio 22.9 RATIO (10-20); Calcium,Total 8.9 mg/dL (8.5-10.1); Chloride 112 mmol/L (98-107); Creatinine, Serum 0.57 mg/dL (0.55-1.02); EST Glomerular Filtration Rate 115 mL/min (>60); Est Glom Filt Rate - Afr Amer 139 mL/min (>60); Estimated Creatinine Clearance 97.03 ml/min; Glucose 89 mg/dL (74-106); Potassium 3.5 mmol/L (3.5-5.1); Sodium Level 145 mmol/L (136-145)
[2018-09-01 19:25] LABS: Differential Indicated SCAN CRITERIA MET; POSITIVE COUNT NO; POSITIVE DIFFERENTIAL NO; POSITIVE MORPHOLOGY YES; Platelet Estimate ADEQUATE (ADEQ); Red Cell Morphology NORM C+C NORMAL (NORM C&C)
--- NOTE | 2018-09-01 19:46 | ED.VISSUMM ---
- ER Visit Summary Date of Service: 09/01/18 Chief Complaint: Cant eat History of Present Illness: The patient is a 62 F who says she has not eaten in 1 month. She has nausea with this. She has a history of esophageal erosions. She takes prilosec at home. She does not have a GI dr. currently. She says her neck was swollen yesterday, but it went away. No fevesr. She said nothing to me about chest pain. Physical Examination: [Vital signs reviewed. HEENT exam unremarkable. Heart is regular rate and rhythm without murmurs. Lungs are clear to auscultation. Abdomen is soft and nontender. Extremities reveal no edema. Skin exam normal. Neurologic exam normal. Test Results: EKg is NSR with t wave inversions in the precordial leads, unchanged. Labs normal. Chest xray shows chronic changes. Emergency Department Course and Treatment: Patient has normal vitals. I do not feel any further workup is necessary. She is highly anxious which is exacerbating the situation. She will be given meds for home. Will follow up with her PCP Treatment Plan: [] Disposition: DC Impression: Nausea, History of esophageal erosions, anxiety This note was generated with Viewpoint Digital dictation software. It may contain incorrect words, spelling, and punctuation that were not noted in review of the chart prior to signing ED Disposition - Plan for ED Patient: Disposition: Home or Assisted Living Chief Complaint: Chest Other Instructions: ED Nausea Vomiting Prescriptions: proMETHazine tablet [Phenergan] 25 mg PO Q6H PRN PRN #10 tab PRN Reason: Nausea hydrOXYzine pamoate capsule [Vistaril] 50 mg PO TID PRN PRN #30 cap PRN Reason: Anxiety Referrals: Chucky Martinez MD [Primary Care Provider] -
[2018-09-01 19:58] VITALS: BP 170/81; PULSE 63; RESP 19; O2SAT 96
[2018-09-01] MEDS: hydrOXYzine PAM 25 MG Capsule PO (20:01)
[2018-09-01] MEDS: proMETHazine 25 MG Tablet PO (20:01)
== END 2018-09-01 20:12 | disposition home or self-care (01) ==
PROVIDERS: Emergency Provider Emergency Medicine; Family Provider Family Medicine; PCP Family Medicine
DX: R11.0 Nausea (principal); F41.9 Anxiety disorder, unspecified; Z72.0 Tobacco use; Z79.82 Long term (current) use of aspirin; Z79.891 Long term (current) use of opiate analgesic; Z79.899 Other long term (current) drug therapy; Z87.19 Personal history of other diseases of the digestive system
CPT/HCPCS: 71045; 80048; 84484; 85025; 93005; 99285; J7030; A4216

== ENCOUNTER 2018-09-09 17:31 | Emergency (ER) | payer MEDICARE, SELFPAY ==
[2018-09-09 17:32] VITALS: BP 181/95; PULSE 71; RESP 14; TEMP 36.9; O2SAT 94; BMI 30.6
--- NOTE | 2018-09-09 17:41 | EKG12_ITS ---
Test Reason : CP Blood Pressure : / mmHG Vent. Rate : 067 BPM Atrial Rate : 067 BPM P-R Int : 124 ms QRS Dur : 102 ms QT Int : 404 ms P-R-T Axes : 045 023 053 degrees QTc Int : 426 ms Normal sinus rhythm with sinus arrhythmia T wave abnormality, consider anterior ischemia Abnormal ECG Confirmed by GASPER MARTINEZ, PATRICK ([id number]), managing editor LOPEZ VERA ([id number]) on 09/14/2018 10:50:01 AM Referred By: SOY Confirmed By:PATRICK JACKMAN MD
--- NOTE | 2018-09-09 17:47 | RAD_ITS ---
STUDY: X-RAY CHEST REASON FOR EXAM: Female, 62 years old. Chest pain. TECHNIQUE: Portable upright. COMPARISON: 09/01/2018. FINDINGS: The lungs are clear and expanded. There is no demonstrated pleural abnormality. Normal size heart. Normal mediastinum and dru. Normal visualized pulmonary arteries. Normal visualized aortic arch and descending thoracic aorta. Normal visualized thoracic spine. Normal visualized ribs, clavicles, and shoulders. There is no demonstrated abnormality of the visualized soft tissue structures of the upper abdomen. RAD/Chest 1 View (Portable) IMPRESSION: Normal x-ray examination of the chest. Electronically Signed: Danna Justin MD at 19:12 EST Tel , Service support ,
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
[2018-09-09] MEDS: LORazepam 2 MG/ML Syringe 1 MG IV (18:01)
[2018-09-09] MEDS: 0.9% Normal Saline 1,000 ML 150 ML IV (18:01)
[2018-09-09 18:14] LABS: Absolute Lymphocyte Count 3.74 X10^3/ul (0.83-4.51); Absolute Neutrophil Count 3.6 X10^3/uL (2.0-7.7); Basophil# 0.05 X10^3/uL; Basophil% 0.6 % (0-1); Eosinophil# 0.34 X10^3/uL; Eosinophils% 4.1 % (0-5); Hematocrit 39.7 % (37-47); Lymphocyte # 3.74 X10^3/ul (4.0); Lymphocyte % 44.6 % (19-41); Mean Corp Hgb Conc 32.7 g/gl (32-36); Mean Corpuscular Hgb 31.3 pg (27.0-32.0); Mean Corpuscular Volume 95.4 fL (81-99); Monocyte# 0.64 X10^3/uL; Monocyte% 7.6 % (0-10); Neutrophil # 3.59 X10^3/uL (2.7-7.7); Neutrophil % 42.9 % (47-70); POSITIVE COUNT NO; POSITIVE DIFFERENTIAL NO; POSITIVE MORPHOLOGY NO; Platelet Count 253 K/mm3 (150-450); RBC Distribution Width CV 13.1 % (11.6-14.6); RBC Distribution Width SD 45.4 fl (35.1-43.9); Red Blood Count 4.16 M/mm3 (4.2-5.4); White Blood Count 8.4 K/mm3 (4.4-11.0)
[2018-09-09 18:18] LABS: Anion Gap 6 (5-15); BUN 16 mg/dL (7-18); BUN/Creat Ratio 20.8 RATIO (10-20); Chloride 107 mmol/L (98-107); Creatinine, Serum 0.77 mg/dL (0.55-1.02); EST Glomerular Filtration Rate 81 mL/min (>60); Est Glom Filt Rate - Afr Amer 98 mL/min (>60); Estimated Creatinine Clearance 71.83 ml/min; Glucose 96 mg/dL (74-106); Potassium 4.1 mmol/L (3.5-5.1); Sodium Level 142 mmol/L (136-145)
[2018-09-09 19:05] VITALS: BP 104/93; PULSE 69; RESP 17; O2SAT 97
[2018-09-09 19:11] VITALS: BP 104/93; PULSE 65; RESP 14; O2SAT 96
--- NOTE | 2018-09-09 19:12 | ED.DCSUM_ITS ---
- ER Visit Summary Date of Service: 09/09/18 Chief Complaint: [Chest pain] History of Present Illness: The patient is a 62 F [presents to the emergency department complaint of chest discomfort not feeling well for over 2 months. Patient states that she just has had this chest pressure and feels like she ca nnot breathe right. At times patient feels like there is some slight in her throat. Patient was admitted in July with similar complaints and had a stress test at that time as well as a CTA of her chest which were unremarkable. Patient has been having continuous discomfort since that time. Patient also with history of anxiety. She has a history of hyper tension, hypercholesterolemia, coronary artery disease without any type of intervention. Patient denies recent travel or surgery. Patient did receive nitroglycerin by EMS and had some mild improvement in her symptoms.] Physical Examination: [HEENT-PERRLA, EOMI. Cranial nerves II through XII grossly intact. TMs clear. Mucous membranes moist. No adenopathy. Cardiovascular-regular rate and rhythm without murmur or ectopy Lungs-clear to auscultation, chest wall stable without crepitus or subcu emphysema Abdomen-normoactive bowel sounds, soft, nontender, no rebound or rigidity, no peritoneal signs. Extremities-intact ?4, normal range of motion, normal pulses, atraumatic] Test Results: [EKG obtained on arrival shows sinus rhythm with a ventricular rate of [address] changes noted however when compared with prior EKG from September 01, 2018 no new changes are noted. CBC with differential obtained was normal. Chemistries were unremarkable. Chest x-ray was unremarkable. Troponin is less than 0.015.] Emergency Department Course and Treatment: [Patient initially received aspirin in the emergency department as well as 1 mg of Ativan. Patient felt much improved after the Ativan treatment.] Treatment Plan: [At this point patient will be discharged home with advice to follow-up with her primary care physician whom she has an appointment with in 4 days. Patient also to follow-up with her complex case manager. At this point I do not feel patient is having acute coronary syndrome and she was recently evaluated for this. Patient also with recent CTA of her chest within the last 2 months and I do not feel her symptoms consistent with PE.] Disposition: [Discharged home in stable condition] Impression: [Chest pain-etiology uncertain Anxiety reaction] This note was generated with Dragon dictation software. It may contain incorrect words, spelling, and punctuation that were not noted in review of the chart prior to signing ED Disposition - Plan for ED Patient: Chief Complaint: Chest Pain Referrals: Chucky Martinez MD [Primary Care Provider] -
--- NOTE | 2018-09-09 19:13 | ED.DEP ---
ED Disposition - Plan for ED Patient: Chief Complaint: Chest Pain Instructions: ED Chest Pain Atypical Unkn Cause, ED Stress React Referrals: Chucky Martinez MD [Primary Care Provider] -
== END 2018-09-09 19:28 | disposition home or self-care (01) ==
PROVIDERS: Emergency Provider Emergency Medicine; Family Provider Family Medicine; PCP Family Medicine
DX: R07.9 Chest pain, unspecified (principal); F41.1 Generalized anxiety disorder; I25.10 Atherosclerotic heart disease of native coronary artery without angina pectoris; I10 Essential (primary) hypertension; E78.00 Pure hypercholesterolemia, unspecified; Z72.0 Tobacco use; I25.2 Old myocardial infarction; Z79.82 Long term (current) use of aspirin; Z79.899 Other long term (current) drug therapy
CPT/HCPCS: 71045; 80048; 84484; 85025; 93005; 96361; 96374; 99285; J7030; A4216

== ENCOUNTER 2018-09-30 15:51 | Emergency (ER) | payer MEDICARE, SELFPAY ==
[2018-09-30 15:52] VITALS: BP 147/85; PULSE 70; RESP 16; TEMP 36.8; O2SAT 94; BMI 27.4
--- NOTE | 2018-09-30 16:24 | EKG12_ITS ---
Test Reason : DIZZINESS Blood Pressure : / mmHG Vent. Rate : 056 BPM Atrial Rate : 056 BPM P-R Int : 138 ms QRS Dur : 104 ms QT Int : 406 ms P-R-T Axes : 057 033 072 degrees QTc Int : 391 ms Sinus bradycardia with sinus arrhythmia Septal infarct , age undetermined T wave abnormality, consider anterior ischemia Abnormal ECG Confirmed by GASPER MARTINEZ, PATRICK ([id number]), editor dictionary LOPEZ VERA ([id number]) on 10/05/2018 3:00:52 PM Referred By: ALONDRA Confirmed By:PATRICK JACKMAN MD
--- NOTE | 2018-09-30 16:34 | ED.VISSUMM ---
- ER Visit Summary Date of Service: 09/30/18 Chief Complaint: Panic attack, chest discomfort History of Present Illness: The patient is a 62 F who presents with a panic attack as well as his discomfort. She has had the symptoms intermittently for 12 months. She states that she feels anxious. She wakes up in a panic. She takes Ativan but only takes intermittently. She sees a counseling center once a month for medication refills but she does not see any counseling type provider. The son brought her in concerned because she wakes up and feels very panicked. He states when she starts doing her daily activities she feels better. She denies shortness of breath or leg swelling. She does have a history of some cardiac issues and the past. Physical Examination: Vital signs reviewed. HEENT exam unremarkable. Heart is regular rate and rhythm without murmurs. Lungs are clear to auscultation. Abdomen is soft and nontender. Extremities reveal no edema. Peripheral pulses are equal. Skin exam normal. Neurologic exam normal. Patient does appear anxious upon examination. Test Results: EKG was sinus rhythm with rate of 56. There are T wave inversions in V1 through V3. This is unchanged from an EKG done on September 092018 Emergency Department Course and Treatment: Patient was given Ativan orally. She is feeling better. I feel that all of her symptoms are due to anxiety. She does have Ativan at home but she does not take it regularly. I encouraged her to take this on a regular basis. She also called the counseling center for follow-up. Treatment Plan: [] Disposition: Discharge Impression: Anxiety This note was generated with Digital Lab dictation software. It may contain incorrect words, spelling, and punctuation that were not noted in review of the chart prior to signing ED Disposition - Plan for ED Patient: Chief Complaint: Dizziness Referrals: Chucky Martinez MD [Primary Care Provider] -
[2018-09-30] MEDS: LORazepam 1 MG Tablet PO (16:38)
--- NOTE | 2018-09-30 17:29 | ED.DEP ---
ED Disposition - Plan for ED Patient: Disposition: Home or Assisted Living Chief Complaint: Dizziness Instructions: ED Panic Attack Prescriptions: proMETHazine tablet [Phenergan] 25 mg PO Q6H PRN PRN #10 tab PRN Reason: Nausea Referrals: Chucky Martinez MD [Primary Care Provider] -
== END 2018-09-30 17:43 | disposition home or self-care (01) ==
PROVIDERS: Emergency Provider Emergency Medicine; Family Provider Family Medicine; PCP Family Medicine
DX: F41.9 Anxiety disorder, unspecified (principal); I10 Essential (primary) hypertension; Z72.0 Tobacco use; Z79.82 Long term (current) use of aspirin; Z79.899 Other long term (current) drug therapy
CPT/HCPCS: 93005; 99283

== ENCOUNTER 2018-12-24 15:38 | Emergency (ER) | payer MEDICARE, SELFPAY ==
[2018-12-24 15:39] VITALS: BP 160/100; PULSE 70; RESP 16; TEMP 36.4; O2SAT 96; BMI 30.4
--- NOTE | 2018-12-24 15:53 | EKG12_ITS ---
Test Reason : CP Blood Pressure : / mmHG Vent. Rate : 069 BPM Atrial Rate : 069 BPM P-R Int : 134 ms QRS Dur : 106 ms QT Int : 400 ms P-R-T Axes : 057 034 047 degrees QTc Int : 428 ms Somatic/Motion Artifact Normal sinus rhythm Normal ECG Confirmed by GASPER MARTINEZ, PATRICK ([id number]), editorial director MICAH SALMERON ([id number]) on 12/27/2018 10:47:17 AM Referred By: MOISES Confirmed By:PATRICK JACKMAN MD
--- NOTE | 2018-12-24 15:53 | RAD_ITS ---
STUDY: X-RAY CHEST REASON FOR EXAM: Female, 63 years old. Chest pain TECHNIQUE: Single AP portable view of the chest. COMPARISON: Prior chest radiograph of September 09, 2018. FINDINGS: The lungs are clear and expanded. There is no demonstrated pleural abnormality. Normal size heart. Normal mediastinum and dru. Normal visualized pulmonary arteries. There is atherosclerotic calcification of the aortic arch with tortuosity. Normal visualized thoracic spine. Normal visualized ribs, clavicles, and shoulders. There is no demonstrated abnormality of the visualized soft tissue structures of the upper abdomen. RAD/Chest 1 View (Portable) IMPRESSION: No acute cardiopulmonary findings or changes. Negative for new consolidation, focal atelectasis, cardiomegaly or pleural effusion. Electronically Signed: Britney Courtney MD at 16:16 EDT , Service support ,
[2018-12-24 15:56] VITALS: O2SAT 96
--- NOTE | 2018-12-24 15:59 | ED.DCSUM_ITS ---
- ER Visit Summary Date of Service: 12/24/18 Chief Complaint: Chest pain History of Present Illness: The patient is a 63 F presents with chest pain that started about 2 days ago its on and off and is associated with anxiety this correlates with her running out of her Ativan 2 days ago. Apparently she ran o ut of all her medications and has no appointment for another 3 days. She describes the pain as sharp stabbing although sometimes as pressure sometimes last 1-2 seconds and sometimes up to a minute. There is no radiation. There is no back pain or tearing sensation. This pain is nonpleuritic. She has no DVT or PE risk factors. Physical Examination: She appears anxious. Strong smell of tobacco Moist mucous membranes, no obvious facial deformity No C-spine tenderness supple neck. Regular rate and rhythm without any obvious murmurs Course lungs bilaterally speaking in full sentences without any obvious respiratory distress Abdomen soft and nontender no guarding or rebound Moves all extremities without any difficulty or pain. Skin does not show any obvious rashes or lesions, no trauma. Alert oriented ?3 with no gross focal deficit Emergency Department Course and Treatment: Patient had a normal cardiac workup, her symptoms started on with anxiety the same time that she ran out of her medications. With a normal troponin, normal EKG and history of present illness that is not consistent with coronary disease patient can be discharged safely. I also talked to her apparently for the past week she has had intermittent bloody stools however she has not had any stools that are bloody for the past 3 days. I will refer to GI. I will also fill her medications, although I told her I would fill a few Ativan to keep him for withdrawing but I cannot fill her home Percocets. Disposition: Discharge stable condition Impression: Withdraw from medications Chest pain This note was generated with [employer] dictation software. It may contain incorrect words, spelling, and punctuation that were not noted in review of the chart prior to signing ED Disposition - Plan for ED Patient: Disposition: Home or Assisted Living Instructions: ED Chest Pain NonCardiac Prescriptions: proMETHazine tablet [Phenergan tablet] 25 mg PO Q4H PRN PRN #20 tab PRN Reason: Nausea Atorvastatin Calcium [Lipitor] 20 mg PO QHS #10 tab Carvedilol [Coreg] 12.5 mg PO DAILY #10 tab Lisinopril [Zestril] 10 mg PO DAILY #10 tab Lorazepam [Ativan] 1 mg PO DAILY #5 tab Omeprazole [Prilosec] 20 mg PO DAILY #10 cap Sucralfate [Carafate] 1 gm PO 4X/DAY #12 tab Referrals: Chucky Martinez MD [Primary Care Provider] - 2 Days
[2018-12-24 16:05] LABS: Absolute Lymphocyte Count 4.58 X10^3/ul (0.83-4.51); Absolute Neutrophil Count 2.9 X10^3/uL (2.0-7.7); Basophil# 0.05 X10^3/uL; Basophil% 0.6 % (0-1); Eosinophil# 0.19 X10^3/uL; Eosinophils% 2.3 % (0-5); Hematocrit 44.3 % (37-47); Hemoglobin 15.1 g/dl (12.0-15.0); Lymphocyte # 4.58 X10^3/ul (4.0); Lymphocyte % 54.3 % (19-41); Mean Corp Hgb Conc 34.1 g/gl (32-36); Mean Corpuscular Hgb 31.3 pg (27.0-32.0); Mean Corpuscular Volume 91.7 fL (81-99); Mean Platelet Vol. 8.9 fl (6.2-12.0); Monocyte% 8.3 % (0-10); Neutrophil # 2.91 X10^3/uL (2.7-7.7); Neutrophil % 34.4 % (47-70); Platelet Count 262 K/mm3 (150-450); RBC Distribution Width CV 12.9 % (11.6-14.6); Red Blood Count 4.83 M/mm3 (4.2-5.4); White Blood Count 8.4 K/mm3 (4.4-11.0)
[2018-12-24 16:06] LABS: POSITIVE COUNT NO; POSITIVE DIFFERENTIAL NO; POSITIVE MORPHOLOGY NO
[2018-12-24] MEDS: Aspirin 81 MG TAB.CHEW 324 MG PO (16:09)
[2018-12-24] MEDS: LORazepam 2 MG/ML Syringe 0.5 MG IV (16:09)
[2018-12-24 16:19] LABS: Anion Gap 3 (5-15); BUN 16 mg/dL (7-18); BUN/Creat Ratio 18.9 RATIO (10-20); Calcium,Total 9.4 mg/dL (8.5-10.1); Chloride 106 mmol/L (98-107); Creatinine, Serum 0.85 mg/dL (0.55-1.02); EST Glomerular Filtration Rate 72 mL/min (>60); Est Glom Filt Rate - Afr Amer 87 mL/min (>60); Estimated Creatinine Clearance 64.24 ml/min; Glucose 104 mg/dL (74-106); Potassium 3.7 mmol/L (3.5-5.1); Sodium Level 140 mmol/L (136-145)
[2018-12-24 17:01] VITALS: BP 148/84; PULSE 67; RESP 16; O2SAT 94
== END 2018-12-24 17:13 | disposition home or self-care (01) ==
PROVIDERS: Emergency Provider Emergency Medicine; Family Provider Family Medicine; PCP Family Medicine
DX: R07.9 Chest pain, unspecified (principal); Z91.14 Patient's other noncompliance with medication regimen; Z72.0 Tobacco use
CPT/HCPCS: 71045; 80048; 84484; 85025; 93005; 96374; 99285; A4216

== ENCOUNTER 2019-01-06 12:01 | Emergency (ER) | payer MEDICARE, SELFPAY ==
[2019-01-06 12:03] VITALS: BP 148/107; PULSE 94; RESP 16; TEMP 36.8; O2SAT 98; BMI 29.9
--- NOTE | 2019-01-06 13:06 | ED.VISSUMM ---
- ER Visit Summary Date of Service: 01/06/19 Chief Complaint: Back pain History of Present Illness: The patient is a 63 F history of osteoarthritis of her back. She denies any falls or trauma. No fever. No dysuria. He states that she has had lower back pain of her buttock since 1 AM this morning. No radiation to her legs. No weakness or numbness. She has had pain like this before. She is on chronic pain meds. She denies any abdominal pain. Pain is worse with movement. Getting up from lying or sitting to standing or sitting makes it worse. Physical Examination: Older female no acute distress. Vital signs are stable. She is afebrile. H EENT exam unremarkable. Neck nontender no lymphadenopathy. Lungs clear to auscultation. Heart regular rhythm no murmur. Abdomen soft nontender normal bowel sounds no pulsatile mass. No peritoneal signs. No signs of obstruction. Patient is moving all 4 kidneys. Neurovascular intact. 5 out of 5 stop attacher strength. Dorsi plantarflexion intact. There is no cauda equina. No saddle anesthesia. She can lift either leg. She has normal medial thigh sensation. There is no acute signs of radiculopathy. Back exam there is reproducible tenderness on the lower lumbar spine and pelvis area. There is no ecchymosis or bruising. No redness or warmth. This is consistent with a musculoskeletal etiology and most likely osteoarthritis. She has no signs of acute disc. Test Results: None Emergency Department Course and Treatment: Patient did not want a prescription. She wanted IM injection. She will be treated with IM morphine. Discharge to home. Treatment Plan: She has pain medication at home. Treat as muscular skeletal back pain. Follow-up if not improving or if worse. Disposition: Discharge Impression: Acute atraumatic low back pain secondary to degenerative arthritis This note was generated with G-[employer] dictation software. It may contain incorrect words, spelling, and punctuation that were not noted in review of the chart prior to signing ED Disposition - Plan for ED Patient: Referrals: Chucky Martinez MD [Primary Care Provider] -
[2019-01-06] MEDS: morphine 8 MG/ML Syringe IM (13:09)
--- NOTE | 2019-01-06 13:11 | ED.DCSUM_ITS ---
- ER Visit Summary Date of Service: 01/06/19 Chief Complaint: Back pain History of Present Illness: The patient is a 63 F history of osteoarthritis of her back. She denies any falls or trauma. No fever. No dysuria. He states that she has had lower back pain of her buttock since 1 AM this morning. No ra diation to her legs. No weakness or numbness. She has had pain like this before. She is on chronic pain meds. She denies any abdominal pain. Pain is worse with movement. Getting up from lying or sitting to standing or sitting makes it worse. Physical Examination: Older female no acute distress. Vital signs are stable. She is afebrile. H EENT exam unremarkable. Neck nontender no lymphadenopathy. Lungs clear to auscultation. Heart regular rhythm no murmur. Abdomen soft nontender normal bowel sounds no pulsatile mass. No peritoneal signs. No signs of obstruction. Patient is moving all 4 kidneys. Neurovascular intact. 5 out of 5 cable television program director strength. Dorsi plantarflexion intact. There is no cauda equina. No saddle anesthesia. She can lift either leg. She has normal medial thigh sensation. There is no acute signs of radiculopathy. Back exam there is reproducible tenderness on the lower lumbar spine and pelvis area. There is no ecchymosis or bruising. No redness or warmth. This is consistent with a musculoskeletal etiology and most likely osteoarthritis. She has no signs of acute disc. Test Results: None Emergency Department Course and Treatment: Patient did not want a prescription. She wanted IM injection. She will be treated with IM morphine. Discharge to home. Treatment Plan: She has pain medication at home. Treat as muscular skeletal back pain. Follow-up if not improving or if worse. Disposition: Discharge Impression: Acute atraumatic low back pain secondary to degenerative arthritis This note was generated with [employer] dictation software. It may contain incorrect words, spelling, and punctuation that were not noted in review of the chart prior to signing ED Disposition - Plan for ED Patient: Referrals: Chucky Martinez MD [Primary Care Provider] -
--- NOTE | 2019-01-06 13:11 | ED.DEP ---
ED Disposition - Plan for ED Patient: Disposition: Home or Assisted Living Instructions: ED Neck Back Pain General Referrals: Chucky Martinez MD [Primary Care Provider] - 1 Week if not improving
[2019-01-06 13:36] VITALS: BP 130/98; PULSE 82; RESP 16; O2SAT 98
--- NOTE | 2019-01-06 13:37 | ED.RN ---
REVIEWED D/C INSTRUCTIONS, FOLLOW UP CARE, AND S/S THAT WOULD WARRANT A RETURN TO THE ED WITH PT. PT VERBALIZED AN UNDERSTANDING AND DENIES FURTHER QUESTIONS FOR THIS RN. PT SKIN P/W/D, RESP EVEN AND UNLABORED, PT A&O X 3, NO DISTRESS NOTED. PT AMBULATED OUT OF ED, GAIT STEADY.
== END 2019-01-06 13:38 | disposition home or self-care (01) ==
LOC: ED 13:25
PROVIDERS: Emergency Provider Emergency Medicine; Family Provider Family Medicine; PCP Family Medicine
DX: M47.9 Spondylosis, unspecified (principal); M54.5 Low back pain; I25.10 Atherosclerotic heart disease of native coronary artery without angina pectoris; Z72.0 Tobacco use; Z79.82 Long term (current) use of aspirin; Z79.899 Other long term (current) drug therapy; I25.2 Old myocardial infarction; Z87.442 Personal history of urinary calculi
CPT/HCPCS: 96372; 99282; A4216

== ENCOUNTER 2019-02-04 22:42 | Emergency (ER) | payer MEDICARE, SELFPAY ==
[2019-02-04 22:43] VITALS: BP 116/68; PULSE 80; RESP 16; TEMP 36.7; O2SAT 93; BMI 30.9
--- NOTE | 2019-02-04 22:47 | ED.RN ---
Addendum entered by Nohemi Zapata 02/04/19 22:47: DENIES CHEST PAIN OR SOB. Original Note: THIS RN CALLED RESPIRATORY FOR EKG. PT REPORTS WEAKNESS AND REFLUX. ALSO C/O DIZZINESS.
--- NOTE | 2019-02-04 23:04 | EKG12_ITS ---
Test Reason : Blood Pressure : / mmHG Vent. Rate : 070 BPM Atrial Rate : 070 BPM P-R Int : 136 ms QRS Dur : 104 ms QT Int : 378 ms P-R-T Axes : 055 020 072 degrees QTc Int : 408 ms Normal sinus rhythm Septal infarct , age undetermined T wave abnormality, consider anterior ischemia Abnormal ECG Confirmed by GASPER MARTINEZ, PATRICK ([id number]), society editor LOPEZ VERA ([id number] on 02/07/2019 1:46:36 PM Referred By: BB Confirmed By:PATRICK JACKMAN MD
--- NOTE | 2019-02-04 23:04 | RAD_ITS ---
HISTORY:DIZZINESS AND WEAKNESS. DIZZINESS AND WEAKNESS. EXAM: XR Chest 1 View: COMPARISON: December 24, 2018 FINDINGS: # of images incl. paperwork: 1 The patient is rotated on this study. LINES/DEVICES: None. LUNGS: Minimal bibasilar atelectasis. No consolidation, edema or effusion. No pneumothorax. MEDIASTINUM AND CARDIOVASCULAR STRUCTURES: Cardiac silhouette not enlarged. BONES AND SOFT TISSUES: Unremarkable. RAD/Chest 1 View (Portable) IMPRESSION: Minimal bibasilar atelectasis at 2320 Reported and signed by: Avelina Montanez DO Electronically Signed: Avelina Montanez DO at 23:19 EDT Tel , Service support ,
--- NOTE | 2019-02-04 23:05 | ED.VIS.GEN ---
History of Present Illness Chief Complaint: General Illness Informant: Patient Onset: Days - 3 Context: Sudden Onset Timing: Intermittent Quality: see below Location: all over Current Severity: gone Maximum Severity: Severe Worsened by: no known triggers Relieved by: time - lasts around 10 min Narrative: For the last 3 days, patient having episodes of feeling anxious, nauseated, lightheaded, sweating, heart beating hard but not racing or skipping, and just makes me feel really bad and scared. She states 3 days ago was the last time she took her Ativan and Phenergan with, she takes these daily and has run out until after the weekend. She states she has a pretty bad anxiety problem. Also, separate from this, she has been having about a week of symptoms she has had before including upper back discomfort with chest pressure that is triggered only with swallowing. She periodically gets these symptoms, at one point after being in the ER with them here, she followed up and had a scope that showed esophageal erosions that were postulated as being a cause of the symptoms. She does not have any chest discomfort right now. She has had no nausea or vomiting/hematemesis or melena. No abdominal pain. No exertional chest discomfort. She has some pleuritic right upper back discomfort that is chronic and unchanged. No history of DVT or PE, no recent leg pain or swelling, immobilization, hospitalization, surgery, long travel. - Past Medical History (1) Anxiety and depression Status: Chronic (2) Atherosclerotic heart disease of [place] coronary artery without angina pectoris Status: Chronic Comment: Mild (3) Cardiomyopathy Status: Chronic (4) Essential hypertension Status: Chronic (5) GERD (gastroesophageal reflux disease) Status: Chronic (6) Hyperlipidemia Status: Chronic (7) EVELYN (obstructive sleep apnea) Status: Chronic (8) TIA (transient ischemic attack) Status: Chronic Past Medical History - Allergies and Home Meds Allergies/Adverse Reactions: Allergies No Known Allergies Allergy (Verified 02/04/19 22:42) Primary Care Physician: Chucky Martinez MD [Primary Care Provider] - 3-5 Days if not improving Surgical History: appendectomy, hysterectomy Lives: Alone Smoking Status: Current every day smoker - Family History Maternal Family History: Family History (Last Reviewed 07/22/18 @ 04:07 by Thor Daniel MD) Mother Hypertension CAD (coronary artery disease) CVA (cerebral vascular accident) Myocardial infarction Grandmother Myocardial infarction Family History: Reports: Heart Disease Paternal Family History: Family History (Last Reviewed 07/22/18 @ 04:07 by Thor Daniel MD) Mother Hypertension CAD (coronary artery disease) CVA (cerebral vascular accident) Myocardial infarction Grandmother Myocardial infarction Family History: Reports: No pertinent history Review of Systems General: Reports: Malaise, Sweats. Denies: Chills, Fever Eyes: Denies: Visual changes - bilaterally, Diplopia ENT: Denies: Rhinorrhea, Sore throat Cardiovascular: Reports: Chest pain. Denies: Palpitations Respiratory: Denies: Dyspnea, Cough, Dyspnea on exertion Gastrointestinal: Reports: Nausea. Denies: Abdominal pain, Vomiting, Diarrhea, Melena, Hematochezia Genitourinary: Denies: Dysuria, Hematuria, Frequency Musculoskeletal: Reports: Back pain. Denies: Neck pain, Swelling, Extremity Pain Skin: Denies: Rash, Wounds Neurological: Denies: Headache, Weakness, Parasthesia, Numbness Psych: Reports: Anxiety. Denies: Suicidal thoughts Physical Exam Vital Signs/Narrative: Vital Signs Temp Pulse Resp BP Pulse Ox 02/04/19 22:43 98.1 F 80 16 116/68 93 Inital Vital Signs reviewed: Yes General: Well nourished, Well developed, No Acute Distress Head: Normocephalic, Atraumatic Eyes: Perrl, EOMI ENT: Moist mucous membranes, No rhinorrhea Neck: Supple, Nontender, No JVD Cardiovascular: Regular rate, Regular rhythm, No murmurs Respiratory: No distress, CTA bilaterally, Chest nontender Abdomen: Soft, Nontender, Nondistended, Normal bowel sounds Back: Nontender, Normal Inspection. Negative for: CVA tenderness Extremities: Nontender, No edema. Negative for: Calf Tenderness Skin: Normal color, No rash, No Trauma Neurological: Alert, Oriented x3, Cranial nerves II-XII grossly intact, Normal Strength, Normal Sensation Psychological: Normal Mood, - - a little anxious Diagnostic/Tx/Re-eval Impressions Chest X-Ray 02/04/19 23:04 IMPRESSION: Minimal bibasilar atelectasis at 2320 Reported and signed by: Avelina Montanez DO Electronically Signed: Avelina Montanez DO at 23:19 EDT Tel , Service support , 02/04/19 23:04 Chest 1 View (Portable) [RAD] Stat Laboratory Results 02/04/19 02/04/19 02/04/19 22:52 22:52 23:33 WBC 8.5 RBC 4.63 Hgb 14.7 Hct 42.7 MCV 92.2 MCH 31.7 MCHC 34.4 RDW 13.1 RDW Differential 43.8 Plt Count 242 MPV 9.1 Immature Gran % (Auto) 0.100 Neut % (Auto) 37.6 L Lymph % (Auto) 52.4 H [place] % (Auto) 6.8 Eos % (Auto) 2.6 Baso % (Auto) 0.5 Absolute Neuts (auto) 3.2 Absolute Lymphs (auto) 4.45 Total Counted Not Reportable Sodium 141 Potassium 3.8 Chloride 108 H Carbon Dioxide 28.0 Anion Gap 5 BUN 15 Creatinine 0.83 Estim Creat Clear Calc 65.79 Est GFR (MDRD) Af Amer 90 Est GFR (MDRD) Non-Af 74 BUN/Creatinine Ratio 18.2 Glucose 100 Calcium 8.9 Troponin I < 0.015 Urine Color Urine Clarity Urine pH Ur Specific [place] Urine Protein Urine Glucose (UA) Urine Ketones Urine Occult Blood Urine Nitrite Urine Bilirubin Urine Urobilinogen Ur Leukocyte Esterase Urine RBC Urine WBC Ur Squamous Epith Cells Urine Bacteria Hyaline Casts Urine Mucus POC Glucose 102 02/04/19 23:55 WBC RBC Hgb Hct MCV MCH MCHC RDW RDW Differential Plt Count MPV Immature Gran % (Auto) Neut % (Auto) Lymph % (Auto) [place] % (Auto) Eos % (Auto) Baso % (Auto) Absolute Neuts (auto) Absolute Lymphs (auto) Total Counted Sodium Potassium Chloride Carbon Dioxide Anion Gap BUN Creatinine Estim Creat Clear Calc Est GFR (MDRD) Af Amer Est GFR (MDRD) Non-Af BUN/Creatinine Ratio Glucose Calcium Troponin I Urine Color Yellow Urine Clarity Sl. Cloudy Urine pH 5.0 Ur Specific [place] 1.025 Urine Protein 30 H Urine Glucose (UA) Normal Urine Ketones 5 H Urine Occult Blood 25 H Urine Nitrite Negative Urine Bilirubin 1 H Urine Urobilinogen 4 H Ur Leukocyte Esterase 25 H Urine RBC 0-5 SEEN Urine WBC 0-5 SEEN Ur Squamous Epith Cells 0-5 SEEN Urine Bacteria 1+ Hyaline Casts 0-5 SEEN Urine Mucus 1+ POC Glucose - EKG Initial EKG Interpretation: Sinus Rhythm, No Acute Injury Pattern - nml axis, Non-Specific ST Changes - lateral Prior: Unchanged - 12/24/18 - Medical Decision Making Work-up is unremarkable. No signs of any acute infection, myocardial damage, or dysrhythmia. She had no episodes while being observed in the ER for 2 hours. Differential includes anxiety attacks, ectopy or transient cardiac dysrhythmia, transient hypoglycemia. She has no chest discomfort now. I am comfortable with her being discharged home to follow-up with regards to her recurrent esophageal discomfort. She is already on a PPI advised to continue. She was given doses of Phenergan and Ativan here which she takes at home and is out of and has refills that will be able to be utilized in 2 days. ED Disposition - Plan for ED Patient: Disposition: Home or Assisted Living Diagnosis: Anxiety, Intermittent chest pain, Episodic lightheadedness Instructions: Understanding Anxiety Disorders, ED Stress React, ED Chest Pain NonCardiac Referrals: Chucky Martinez MD [Primary Care Provider] - 3-5 Days if not improving Additional Instructions: refill your medications renée.
[2019-02-04 23:13] LABS: Absolute Lymphocyte Count 4.45 X10^3/ul (0.83-4.51); Absolute Neutrophil Count 3.2 X10^3/uL (2.0-7.7); Basophil# 0.04 X10^3/uL; Basophil% 0.5 % (0-1); Eosinophil# 0.22 X10^3/uL; Eosinophils% 2.6 % (0-5); Hematocrit 42.7 % (37-47); Hemoglobin 14.7 g/dl (12.0-15.0); Lymphocyte # 4.45 X10^3/ul (4.0); Lymphocyte % 52.4 % (19-41); Mean Corp Hgb Conc 34.4 g/gl (32-36); Mean Corpuscular Hgb 31.7 pg (27.0-32.0); Mean Corpuscular Volume 92.2 fL (81-99); Mean Platelet Vol. 9.1 fl (6.2-12.0); Monocyte# 0.58 X10^3/uL; Monocyte% 6.8 % (0-10); Neutrophil % 37.6 % (47-70); POSITIVE COUNT NO; POSITIVE DIFFERENTIAL NO; POSITIVE MORPHOLOGY NO; Platelet Count 242 K/mm3 (150-450); RBC Distribution Width CV 13.1 % (11.6-14.6); RBC Distribution Width SD 43.8 fl (35.1-43.9); Red Blood Count 4.63 M/mm3 (4.2-5.4); White Blood Count 8.5 K/mm3 (4.4-11.0)
[2019-02-04] MEDS: proMETHazine 25 MG Tablet PO (23:13)
[2019-02-04] MEDS: LORazepam 1 MG Tablet PO (23:13)
[2019-02-04 23:20] VITALS: RESP 15; O2SAT 85
[2019-02-04 23:25] LABS: Anion Gap 5 (5-15); BUN 15 mg/dL (7-18); BUN/Creat Ratio 18.2 RATIO (10-20); Calcium,Total 8.9 mg/dL (8.5-10.1); Chloride 108 mmol/L (98-107); Creatinine, Serum 0.83 mg/dL (0.55-1.02); EST Glomerular Filtration Rate 74 mL/min (>60); Est Glom Filt Rate - Afr Amer 90 mL/min (>60); Estimated Creatinine Clearance 65.79 ml/min; Glucose 100 mg/dL (74-106); Potassium 3.8 mmol/L (3.5-5.1); Sodium Level 141 mmol/L (136-145)
[2019-02-04 23:39] VITALS: BP 101/53; PULSE 57; RESP 17; O2SAT 93
[2019-02-04 23:40] LABS: Bedside Glucose 102 mg/dL (70-110)
[2019-02-05 00:08] LABS: Color, Urine Yellow (Yellow); Glucose, Dipstick Normal (Normal); Ketone-Dipstick 5 mg/dl (Negative); Leukocyte Esterase-Dipstick 25 /ul (Negative); Nitrite-Dipstick Negative (Negative); Occult Blood-Urine 25 /ul (Negative); Protein-Dipstick 30 mg/dl (Negative); Specific Gravity, Urine 1.025 (1.002-1.030); Urine Clarity Sl. Cloudy (Clear); Urine Urobilinogen 4 mg/dl (Normal)
[2019-02-05 00:09] LABS: Urine Bilirubin Dipstick 1 mg/dL (Negative)
[2019-02-05 00:14] LABS: Bacteria 1+ /hpf (None Seen); Hyaline Cast 0-5 SEEN /lpf (0-5); Mucous, Urine 1+ /hpf (<or=2+); Red Blood Cells-Urine 0-5 SEEN /hpf (0-5); Squamous Epithelial Cells - UA 0-5 SEEN /hpf (5-10); White Blood Cells 0-5 SEEN /hpf (0-5)
[2019-02-05] MEDS: proMETHazine 25 MG Tablet PO (01:09)
[2019-02-05] MEDS: LORazepam 1 MG Tablet PO (01:09)
[2019-02-05 01:10] VITALS: BP 109/59; PULSE 57; RESP 15; O2SAT 92
== END 2019-02-05 01:18 | disposition home or self-care (01) ==
PROVIDERS: Emergency Provider Emergency Medicine; Family Provider Family Medicine; PCP Family Medicine
DX: F41.9 Anxiety disorder, unspecified (principal); R07.89 Other chest pain; R42 Dizziness and giddiness; I25.10 Atherosclerotic heart disease of native coronary artery without angina pectoris; I42.9 Cardiomyopathy, unspecified; I10 Essential (primary) hypertension; E78.5 Hyperlipidemia, unspecified; G47.33 Obstructive sleep apnea (adult) (pediatric); K21.9 Gastro-esophageal reflux disease without esophagitis; F32.9 Major depressive disorder, single episode, unspecified; F17.200 Nicotine dependence, unspecified, uncomplicated; Z79.82 Long term (current) use of aspirin; Z79.899 Other long term (current) drug therapy; Z86.73 Personal history of transient ischemic attack (TIA), and cerebral infarction without residual deficits; Z90.710 Acquired absence of both cervix and uterus
CPT/HCPCS: 71045; 80048; 81001; 82962; 84484; 85025; 93005; 99285; A4216

== ENCOUNTER 2019-02-08 13:35 | Emergency (ER) | payer MEDICARE, SELFPAY ==
[2019-02-08 13:36] VITALS: BP 183/110; PULSE 121; RESP 18; TEMP 36.5; O2SAT 95; BMI 30.5
--- NOTE | 2019-02-08 14:00 | ED.DCSUM_ITS ---
History of Present Illness Chief Complaint: General Illness Informant: Patient Onset: Today Context: Sudden Onset Timing: Continuous Quality: Pain Location: Central low back Current Severity: Mild Maximum Severity: Moderate Worsened by: Twisting to right and left bending, Relieved by: Better if patient remains still Associated Symptoms: None Narrative: Patient is a 63-year-old woman who presents with central low back pain after sneezing/coughing. She denies bowel bladder dysfunction. She denies radicular pain. She denies saddle paresthesia or anesthesia. She denies foot drop. She denies quadricep weakness going up or down steps. She states her daughter can pick her up. She does not want prescription for pain medicine. 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 She denies black or maroon stool. She denies hematemesis. She states she is not here for her GI issues. Prior similar symptoms: No Recent Illness/Hospitalization: Yes - Past Medical History (1) Anxiety and depression Status: Chronic (2) Cardiomyopathy Status: Chronic (3) Essential hypertension Status: Chronic (4) GERD (gastroesophageal reflux disease) Status: Chronic (5) Hyperlipidemia Status: Chronic (6) NSTEMI (non-ST elevated myocardial infarction) Status: Chronic (7) EVELYN (obstructive sleep apnea) Status: Chronic (8) Obesity (BMI 30.0-34.9) Status: Chronic (9) TIA (transient ischemic attack) Status: Chronic (10) Tobacco use Status: Chronic Past Medical History - Allergies and Home Meds Allergies/Adverse Reactions: Allergies No Known Allergies Allergy (Verified 02/08/19 13:38) Primary Care Physician: Chucky Martinez MD [Primary Care Provider] - Surgical History: appendectomy, hysterectomy Lives: Alone Smoking Status: Current every day smoker Alcohol: None - Family History Maternal Family History: Family History (Last Reviewed 07/22/18 @ 04:07 by Thor Daniel MD) Mother Hypertension CAD (coronary artery disease) CVA (cerebral vascular accident) Myocardial infarction Grandmother Myocardial infarction Family History: Reports: Heart Disease Paternal Family History: Family History (Last Reviewed 07/22/18 @ 04:07 by Thor Daniel MD) Mother Hypertension CAD (coronary artery disease) CVA (cerebral vascular accident) Myocardial infarction Grandmother Myocardial infarction Family History: Reports: No pertinent history Review of Systems General: Denies: Chills, Fever, Malaise, Subjective, Sweats Cardiovascular: Denies: Chest pain, Palpitations Respiratory: Reports: Cough. Denies: Dyspnea, Sputum, Dyspnea on exertion, Orthopnea, Paroxysmal nocturnal dyspnea Genitourinary: Denies: Dysuria, Hematuria, Frequency Musculoskeletal: Reports: Back pain. Denies: Myalgias, Arthralgias, Neck pain, Swelling, Extremity Pain, -, - Skin: Denies: Rash, Wounds Neurological: Denies: Headache, Weakness, Parasthesia, Numbness Allergy: Denies: Uticaria, Swelling of the mouth Physical Exam Vital Signs/Narrative: Vital Signs Temp Pulse Resp BP Pulse Ox 02/08/19 13:36 97.7 F L 121 H 18 183/110 H 95 Inital Vital Signs reviewed: Yes General: Well nourished, Well developed, No Acute Distress Head: Normocephalic, Atraumatic Eyes: Perrl, EOMI. Negative for: Pale conjunctiva, Scleral icterus ENT: Moist mucous membranes, No rhinorrhea Neck: Supple, Nontender Cardiovascular: Regular rate, Regular rhythm, No murmurs Respiratory: No distress, CTA bilaterally, Chest nontender Abdomen: Soft, Nontender, Nondistended, Normal bowel sounds Rectal: Deferred Back: Normal Inspection, - - Right leg test negative right and left. DTRs 1-2+ patella and ankle. EHL is intact. DP and PT pulse are palpable. Negative bowstring sign. Normal perianal sensation. Gait observed with no foot drop. No weakness of thigh muscles with squatting.. Negative for: Nontender, CVA tenderness, Spinal tenderness Extremities: Nontender, No edema Skin: Normal color, No rash, No Trauma. Negative for: Cyanosis, Diaphoresis, Jaundice Neurological: Alert, Oriented x3, Cranial nerves II-XII grossly intact, Normal Strength, Normal Sensation, Normal DTR, Normal Gait Psychological: Normal affect, Normal Mood Diagnostic/Tx/Re-eval - Medical Decision Making Patient was medicated with 50 mg of Toradol and 4 mg of morphine IV push. She received Zofran to prevent nausea and vomiting secondary to opiate analgesia. Will reassess. Patient was reassessed at 1430. She reports marked improvement pain. She feels comfortable going home. She will be discharged to home with appropriate home- going instructions ED Disposition - Plan for ED Patient: Disposition: Home or Assisted Living Diagnosis: Acute bilateral low back pain without sciatica Instructions: ED Sprain Strain Lumbar Referrals: Chucky Martinez MD [Primary Care Provider] - 3-5 Days if not improving
[2019-02-08] MEDS: Morphine 4 MG/ML Syringe IV (14:15)
[2019-02-08] MEDS: Ketorolac 15 MG/ML Vial IV (14:15)
[2019-02-08] MEDS: Ondansetron 4 MG/2 ML Vial IV (14:15)
[2019-02-08 14:39] VITALS: BP 173/95; PULSE 103; RESP 17; O2SAT 94
== END 2019-02-08 14:43 | disposition home or self-care (01) ==
PROVIDERS: Emergency Provider Emergency Medicine; Family Provider Family Medicine; PCP Family Medicine
DX: M54.5 Low back pain (principal); I10 Essential (primary) hypertension; E78.5 Hyperlipidemia, unspecified; I42.9 Cardiomyopathy, unspecified; G47.33 Obstructive sleep apnea (adult) (pediatric); K21.9 Gastro-esophageal reflux disease without esophagitis; F32.9 Major depressive disorder, single episode, unspecified; F41.9 Anxiety disorder, unspecified; E66.9 Obesity, unspecified; F17.200 Nicotine dependence, unspecified, uncomplicated; I25.2 Old myocardial infarction; Z86.73 Personal history of transient ischemic attack (TIA), and cerebral infarction without residual deficits; Z79.82 Long term (current) use of aspirin; Z79.891 Long term (current) use of opiate analgesic; Z79.899 Other long term (current) drug therapy
CPT/HCPCS: 96374; 96375; 99283; A4216; J2405

== ENCOUNTER 2019-03-07 20:24 | Emergency (ER) | payer MEDICARE, SELFPAY ==
[2019-03-07 20:25] VITALS: BP 136/79; PULSE 114; RESP 18; TEMP 36.6; O2SAT 93; BMI 31.1
[2019-03-07] MEDS: Ondansetron 4 MG/2 ML Vial IV (21:57)
[2019-03-07] MEDS: 0.9% Normal Saline 1,000 ML 1000 ML IV (21:59)
[2019-03-07] MEDS: Morphine 4 MG/ML Syringe IV (21:59)
[2019-03-07 22:09] LABS: Bacteria 0 SEEN /hpf (None Seen); Mucous, Urine 0 SEEN /hpf (<or=2+)
[2019-03-07 22:11] LABS: Color, Urine Yellow (Yellow); Glucose, Dipstick Normal (Normal); Ketone-Dipstick 5 mg/dl (Negative); Leukocyte Esterase-Dipstick 25 /ul (Negative); Nitrite-Dipstick Negative (Negative); Occult Blood-Urine 25 /ul (Negative); Protein-Dipstick Negative (Negative); Urine Bilirubin Dipstick Negative (Negative); Urine Clarity Sl. Cloudy (Clear); Urine Urobilinogen Normal (Normal); Urine pH 6.5 (5.0 - 8.0)
[2019-03-07 22:17] LABS: Red Blood Cells-Urine 0-5 SEEN /hpf (0-5); Squamous Epithelial Cells - UA 0-5 SEEN /hpf (5-10); White Blood Cells 0-5 SEEN /hpf (0-5)
[2019-03-07 22:23] LABS: Absolute Lymphocyte Count 3.52 X10^3/ul (0.83-4.51); Absolute Neutrophil Count 4.5 X10^3/uL (2.0-7.7); Basophil# 0.04 X10^3/uL; Basophil% 0.4 % (0-1); Eosinophil# 0.18 X10^3/uL; Hematocrit 44.3 % (37-47); Hemoglobin 15.4 g/dl (12.0-15.0); Lymphocyte # 3.52 X10^3/ul (4.0); Lymphocyte % 39.5 % (19-41); Mean Corp Hgb Conc 34.8 g/gl (32-36); Mean Corpuscular Hgb 31.8 pg (27.0-32.0); Mean Corpuscular Volume 91.3 fL (81-99); Mean Platelet Vol. 8.8 fl (6.2-12.0); Monocyte# 0.64 X10^3/uL; Monocyte% 7.2 % (0-10); Neutrophil # 4.53 X10^3/uL (2.7-7.7); Neutrophil % 50.8 % (47-70); Platelet Count 233 K/mm3 (150-450); RBC Distribution Width CV 12.9 % (11.6-14.6); RBC Distribution Width SD 42.6 fl (35.1-43.9); Red Blood Count 4.85 M/mm3 (4.2-5.4); White Blood Count 8.9 K/mm3 (4.4-11.0)
[2019-03-07 22:24] LABS: POSITIVE COUNT NO; POSITIVE DIFFERENTIAL NO; POSITIVE MORPHOLOGY NO
--- NOTE | 2019-03-07 22:30 | RAD_ITS ---
STUDY: X-RAY - ACUTE ABDOMINAL SERIES REASON FOR EXAM: Female, 63 years old. Abdominal pain. TECHNIQUE: Single view of the chest. Supine view(s) of the abdomen were obtained. COMPARISON: Chest x-ray 02/04/2019. FINDINGS: Heart size is normal. Hilar and mediastinal shadows are unremarkable. There is no pleural effusion or acute pulmonary inflammatory change. Soft tissues and bony structures are unremarkable. There is no demonstrated free air beneath the diaphragm. There is a nonobstructive bowel gas pattern. Stool burden is low. There is no organomegaly. Vascular calcifications are present. Mild degenerative changes of the lumbar spine are noted. RAD/Acute Abdomen Inc Chest IMPRESSION: No acute findings. Electronically Signed: Danna Justin MD at 23:16 EDT Tel , Service support ,
[2019-03-07 22:35] VITALS: RESP 16
[2019-03-07 22:37] LABS: ALB/GLOB Ratio 0.8 RATIO (0.9-2.4); AST(SGOT) 15 U/L (15-37); Alanine Aminotransfer ALT/SGPT 13 U/L (13-56); Albumin, Serum 3.3 g/dL (3.2-5.0); Alkaline Phosphatase 133 U/L (45-117); Anion Gap 5 (5-15); BUN 11 mg/dL (7-18); BUN/Creat Ratio 13.1 RATIO (10-20); Calcium,Total 9.3 mg/dL (8.5-10.1); Chloride 111 mmol/L (98-107); Creatinine, Serum 0.84 mg/dL (0.55-1.02); EST Glomerular Filtration Rate 73 mL/min (>60); Est Glom Filt Rate - Afr Amer 88 mL/min (>60); Estimated Creatinine Clearance 62.49 ml/min; Globulin 3.9 g/dL (2.2-4.2); Glucose 100 mg/dL (74-106); Lipase 171 U/L (73-393); Potassium 3.5 mmol/L (3.5-5.1); Protein, Total 7.2 g/dL (6.4-8.2); Sodium Level 142 mmol/L (136-145)
--- NOTE | 2019-03-07 23:54 | ED.DCSUM_ITS ---
- ER Visit Summary Date of Service: 03/07/19 Chief Complaint: Back pain and abdominal pain History of Present Illness: The patient is a 63 F who presents with back and abdominal pain that has been getting progressively worse over the past 2 days. Patient admits to some nausea but denies any vomiting. Patient states she had some diarrhea today. Patient states the pain is worse over her low back. Patient states she has a history of degenerative disc disease. Patient denies any trauma or injury. Patient denies any radiation of the pain. Patient denies any bowel or bladder changes. Patient states she is currently being treated for a urinary tract infection. Patient denies any saddle anesthesia. Physical Examination: Vital signs are stable. Patient is afebrile. Patient is in no acute distress. [place]ucosa is pink and moist. Neck is supple. Trachea is midline. There is no JVD noted. Heart was regular rate and rhythm. Lungs are clear and equal bilaterally. Abdomen is soft. Bowel sounds are normal. There is mild left lower quadrant tenderness. There is no rebound or guarding noted. Musculoskeletal exam reveals tenderness over the lumbar paraspinal muscles. There is no bony crepitance or step-off noted. Strength is 5/5 bilaterally upper and lower extremities. There are no sensory deficits noted. The remaining physical exam is within normal limits. Test Results: Acute abdominal x-rays were obtained. There is no acute intra-ab dominal process noted. CBC and comprehensive metabolic profile were within normal limits. Urinalysis does not show any evidence of urinary tract infection. Emergency Department Course and Treatment: Patient was given IV fluids, morphine, and Zofran here. Patient was given 1 dose of [place] prior to discharge. Patient was instructed to follow-up with her primary care physician in 5 to 7 days. Patient understood and was agreeable with the plan. All questions were answered. Disposition: Discharge home Impression: 1. Abdominal pain 2. Back pain This note was generated with [employer] dictation software. It may contain incorrect words, spelling, and punctuation that were not noted in review of the chart prior to signing ED Disposition - Plan for ED Patient: Disposition: Home or Assisted Living Diagnosis: Abdominal pain, Back pain Instructions: ABDOMINAL PAIN, Unknown Cause, (Female), BACK PAIN (Acute or Chronic) Referrals: Chucky Martinez MD [Primary Care Provider] - 5-7 Days
[2019-03-08 00:09] VITALS: BP 132/86; PULSE 84; RESP 16; O2SAT 98
[2019-03-08] MEDS: HYDROcodone Bitartrate/Apap 5/325 Tablet PO (00:09)
== END 2019-03-08 00:10 | disposition home or self-care (01) ==
PROVIDERS: Emergency Provider Emergency Medicine; Family Provider Family Medicine; PCP Family Medicine
DX: R10.9 Unspecified abdominal pain (principal); M54.9 Dorsalgia, unspecified; R11.0 Nausea; R19.7 Diarrhea, unspecified; H53.8 Other visual disturbances; R68.83 Chills (without fever); R51 Headache; N39.0 Urinary tract infection, site not specified; I25.2 Old myocardial infarction; I10 Essential (primary) hypertension; Z79.82 Long term (current) use of aspirin; Z79.899 Other long term (current) drug therapy; F17.200 Nicotine dependence, unspecified, uncomplicated
CPT/HCPCS: 74022; 80053; 81001; 83690; 85025; 96361; 96374; 96375; 99285; J7030; J2405

== ENCOUNTER 2019-04-03 14:27 | Emergency (ER) | payer MEDICARE, SELFPAY ==
[2019-04-03 14:27] VITALS: BP 146/88; PULSE 100; RESP 16; TEMP 36.9; O2SAT 95; BMI 26.6
--- NOTE | 2019-04-03 14:52 | ED.VIS.GEN ---
History of Present Illness Chief Complaint: Abd Pain Informant: Patient Onset: Month(s) Context: Gradual Onset Timing: Continuous Current Severity: Moderate Maximum Severity: Moderate Narrative: The patient presents to the emergency department with multiple complaints. The patient has had abdominal pain intermittent for the past year. She states that she has had upper endoscopy and they were concerned that she may had esophageal cancer. She states that she is elected to not have any treatment. She states that she had increasing pain in her epigastric area to right upper quadrant. She is been nauseated with few bouts of emesis. She is also been having loose watery diarrhea. She states is the same pain she is been having intermittently for the past year. She denies any fevers or chills. She denies any weight loss or night sweats. She did call squad today because she was out of her Phenergan. Prior similar symptoms: Yes Recent Illness/Hospitalization: No Past Medical History - Allergies and Home Meds Allergies/Adverse Reactions: Allergies No Known Allergies Allergy (Verified 04/03/19 14:29) Primary Care Physician: Chucky Martinez MD [Primary Care Provider] - Prior records reviewed: Yes Surgical History: appendectomy, hysterectomy Smoking Status: Current every day smoker Alcohol: Sober Drugs: None - Family History Maternal Family History: Family History (Last Reviewed 07/22/18 @ 04:07 by Thor Daniel MD) Mother Hypertension CAD (coronary artery disease) CVA (cerebral vascular accident) Myocardial infarction Grandmother Myocardial infarction Family History: Reports: Heart Disease Paternal Family History: Family History (Last Reviewed 07/22/18 @ 04:07 by Thor Daniel MD) Mother Hypertension CAD (coronary artery disease) CVA (cerebral vascular accident) Myocardial infarction Grandmother Myocardial infarction Family History: Reports: No pertinent history Review of Systems General: Denies: Chills, Fever, Sweats Eyes: Denies: Visual changes - bilaterally, Diplopia ENT: Denies: Rhinorrhea, Sore throat Cardiovascular: Denies: Chest pain, Palpitations Respiratory: Denies: Dyspnea, Cough, Dyspnea on exertion Gastrointestinal: Reports: Abdominal pain, Vomiting, Diarrhea Genitourinary: Denies: Dysuria, Hematuria, Frequency Musculoskeletal: Denies: Back pain, Extremity Pain Skin: Denies: Rash, Wounds Neurological: Denies: Headache, Weakness, Numbness Psych: Denies: Depression Endocrine: Denies: Polyuria Hematologic: Denies: Easy bruising Physical Exam Vital Signs/Narrative: Vital Signs Temp Pulse Resp BP Pulse Ox 04/03/19 14:27 98.4 F 100 16 146/88 H 95 Inital Vital Signs reviewed: Yes General: Well nourished, Well developed, No Acute Distress Head: Normocephalic, Atraumatic Eyes: Perrl, EOMI ENT: Moist mucous membranes, No rhinorrhea Neck: Supple, Nontender Cardiovascular: Regular rate, Regular rhythm, No murmurs Respiratory: No distress, CTA bilaterally, Chest nontender Abdomen: Soft, Nontender, Nondistended, Normal bowel sounds Back: Nontender, Normal Inspection Extremities: Nontender, No edema Skin: Normal color, No rash Neurological: Alert, Oriented x3, Cranial nerves II-XII grossly intact, Normal Strength, Normal Sensation Psychological: Normal affect, Normal Mood Diagnostic/Tx/Re-eval Abnormal Lab Results 04/03/19 04/03/19 04/03/19 15:00 15:00 15:23 WBC 6.1 RBC 4.44 Hgb 13.7 Hct 41.4 MCV 93.2 MCH 30.9 MCHC 33.1 RDW Std Deviation 42.9 RDW Coeff of Sariah 12.6 Plt Count 329 MPV 8.8 Immature Gran % (Auto) 0.300 Neut % (Auto) 60.5 Lymph % (Auto) 28.1 [place] % (Auto) 7.6 Eos % (Auto) 1.5 Baso % (Auto) 2.0 H Absolute Neuts (auto) 3.7 Absolute Lymphs (auto) 1.71 Nucleated RBC % 0 Sodium 139 Potassium 3.8 Chloride 104 Carbon Dioxide 28.0 Anion Gap 7 BUN 8 Creatinine 0.71 Estim Creat Clear Calc 73.93 Est GFR (MDRD) Af Amer 108 Est GFR (MDRD) Non-Af 89 BUN/Creatinine Ratio 11.3 Glucose 89 Calcium 9.4 Total Bilirubin 0.60 AST 17 ALT 15 Alkaline Phosphatase 104 Total Protein 7.7 Albumin 3.5 Globulin 4.2 Albumin/Globulin Ratio 0.8 L Lipase 183 Urine Color Yellow Urine Clarity Sl. Cloudy Urine pH 6.0 Ur Specific [place] 1.010 Urine Protein Negative Urine Glucose (UA) Normal Urine Ketones 50 H Urine Occult Blood 25 H Urine Nitrite Negative Urine Bilirubin Negative Urine Urobilinogen Normal Ur Leukocyte Esterase 25 H Urine RBC 0-5 SEEN Urine WBC 0-5 SEEN Ur Squamous Epith Cells 0-5 SEEN Urine Bacteria RARE Urine Mucus 0 SEEN - Medical Decision Making The patient's abdomen is soft and nontender. She has had this constellation of symptoms for a year. My suspicion is that a lot of this has to do with her various medications. She has been without her Phenergan and chronic pain medication. I do suspect there is a component of withdrawal. The patient was hydrated. Her nausea and myalgias were treated. Her work-up is relatively unremarkable. On reevaluation, she has a soft nontender abdomen still. At this point, I do not see any clear indication for further emergent work-up. I do feel that she is safe to continue her outpatient work-up. I will refill her Phenergan. She will be discharged home. Impression 1. Exacerbation of chronic abdominal pain 2. Dehydration ED Disposition - Plan for ED Patient: Instructions: ABDOMINAL PAIN, Unknown Cause, (Female) Prescriptions: proMETHazine tablet [Phenergan] 25 mg PO Q6H PRN PRN #10 tab PRN Reason: Nausea Prescription Printed Referrals: Chucky Martinez MD [Primary Care Provider] -
[2019-04-03] MEDS: proMETHazine 25 MG/ML Syringe 12.5 MG IV (15:08)
[2019-04-03] MEDS: 0.9% Normal Saline 1,000 ML 1000 ML IV (15:08)
[2019-04-03] MEDS: Morphine 4 MG/ML Syringe IV (15:08)
[2019-04-03 15:16] LABS: Absolute Lymphocyte Count 1.71 X10^3/uL (0.83-4.51); Absolute Neutrophil Count 3.7 X10^3/uL (2.0-7.7); Basophil# 0.12 X10^3/uL; Eosinophil# 0.09 X10^3/uL; Eosinophils% 1.5 % (0-5); Hematocrit 41.4 % (37-47); Hemoglobin 13.7 g/dL (12.0-15.0); Lymphocyte # 1.71 X10^3/ul (4.0); Lymphocyte % 28.1 % (19-41); Mean Corp Hgb Conc 33.1 g/dL (32-36); Mean Corpuscular Hgb 30.9 pg (27.0-32.0); Mean Corpuscular Volume 93.2 fL (81-99); Mean Platelet Vol. 8.8 fl (6.2-12.0); Monocyte# 0.46 X10^3/uL; Monocyte% 7.6 % (0-10); NRBC Flagged by Analyzer 0 % (0-5); Neutrophil # 3.68 X10^3/uL (2.7-7.7); Neutrophil % 60.5 % (47-70); Platelet Count 329 K/mm3 (150-450); RBC Distribution Width CV 12.6 % (11.6-14.6); RBC Distribution Width SD 42.9 fl (35.1-43.9); Red Blood Count 4.44 M/mm3 (4.2-5.4); White Blood Count 6.1 K/mm3 (4.4-11.0)
[2019-04-03 15:28] LABS: Mucous, Urine 0 SEEN /hpf (<or=2+)
[2019-04-03 15:32] LABS: ALB/GLOB Ratio 0.8 RATIO (0.9-2.4); AST(SGOT) 17 U/L (15-37); Alanine Aminotransfer ALT/SGPT 15 U/L (13-56); Albumin, Serum 3.5 g/dL (3.2-5.0); Alkaline Phosphatase 104 U/L (45-117); Anion Gap 7 (5-15); BUN 8 mg/dL (7-18); BUN/Creat Ratio 11.3 RATIO (10-20); Calcium,Total 9.4 mg/dL (8.5-10.1); Chloride 104 mmol/L (98-107); Creatinine, Serum 0.71 mg/dL (0.55-1.02); EST Glomerular Filtration Rate 89 mL/min (>60); Est Glom Filt Rate - Afr Amer 108 mL/min (>60); Estimated Creatinine Clearance 73.93 ml/min; Globulin 4.2 g/dL (2.2-4.2); Glucose 89 mg/dL (74-106); Lipase 183 U/L (73-393); Potassium 3.8 mmol/L (3.5-5.1); Protein, Total 7.7 g/dL (6.4-8.2); Sodium Level 139 mmol/L (136-145)
[2019-04-03 15:32] LABS: Color, Urine Yellow (Yellow); Glucose, Dipstick Normal (Normal); Ketone-Dipstick 50 mg/dl (Negative); Leukocyte Esterase-Dipstick 25 /ul (Negative); Nitrite-Dipstick Negative (Negative); Occult Blood-Urine 25 /ul (Negative); Protein-Dipstick Negative (Negative); Urine Bilirubin Dipstick Negative (Negative); Urine Clarity Sl. Cloudy (Clear); Urine Urobilinogen Normal (Normal)
[2019-04-03 15:46] VITALS: BP 159/82; PULSE 89; RESP 18; O2SAT 93
[2019-04-03 15:48] LABS: Bacteria RARE /hpf (None Seen); Red Blood Cells-Urine 0-5 SEEN /hpf (0-5); Squamous Epithelial Cells - UA 0-5 SEEN /hpf (5-10); White Blood Cells 0-5 SEEN /hpf (0-5)
[2019-04-03] MEDS: LORazepam 2 MG/ML Syringe 1 MG IV (16:05)
[2019-04-03 16:08] VITALS: BP 158/85; PULSE 89; RESP 18; O2SAT 96
== END 2019-04-03 16:14 | disposition home or self-care (01) ==
PROVIDERS: Emergency Provider Emergency Medicine; Family Provider Family Medicine; PCP Family Medicine
DX: R10.11 Right upper quadrant pain (principal); R10.13 Epigastric pain; G89.29 Other chronic pain; E86.0 Dehydration; R11.2 Nausea with vomiting, unspecified; R19.7 Diarrhea, unspecified; F17.200 Nicotine dependence, unspecified, uncomplicated; Z90.710 Acquired absence of both cervix and uterus
CPT/HCPCS: 80053; 81001; 83690; 85025; 96361; 96374; 96375; 99285; J7030; A4216

== ENCOUNTER 2019-04-05 11:54 | Emergency (ER) | payer MEDICARE, SELFPAY ==
[2019-04-05 11:55] VITALS: BP 152/99; PULSE 89; RESP 16; TEMP 36.6; O2SAT 95; BMI 30.7
--- NOTE | 2019-04-05 12:35 | CT_ITS ---
STUDY: CT ABDOMEN AND PELVIS WITH CONTRAST REASON FOR EXAM: Female, 63 years old. Abdominal pain with nausea and vomiting. RADIATION DOSAGE (If Supplied By Facility): CTDIvol = ( 19.24 ) mGy, DLP = ( 2045.96 ) mGycm TECHNIQUE: Transaxial images were obtained from the dome of the diaphragm to the symphysis pubis with oral contrast. 100mL IV/Oral Isovue 300 was administered. Sagittal and coronal images were reconstructed. Individualized dose optimization techniques were used for this CT. COMPARISON: Comparison is made with prior study dated July 21, 2018. FINDINGS: The visualized lung bases are unremarkable. The visualized portions of the heart are within normal limits. Normal liver. The gallbladder is contracted. Normal spleen. Normal pancreas. Normal bilateral adrenal glands. Normal right kidney. Normal left kidney. There is a small hiatal hernia. There is circumferential thickening of the terminal ileum with mild increased markings in the surrounding peritoneal fat. Terminal ileitis should be ruled out. Mild thickening of the descending colon. Crohn's disease should be ruled out. There are multiple colonic diverticula consistent with diverticulosis. There are surgical clips in the region of the appendix consistent with a prior appendectomy. There is diffuse atherosclerotic calcification of the abdominal aorta and the major visceral branches, without a demonstrated aneurysm. There is evidence of mural thrombus in the distal abdominal aorta. Normal inferior vena cava. There is borderline retroperitoneal lymphadenopathy with enlarged nodes no greater than 10mm in the short axis diameter. The bladder is not well-distended. The urinary bladder wall is thickened. There is absence of the uterus consistent with a prior hysterectomy. A small amount of free fluid is seen in the cul-de-sac. Normal abdominal wall. There are diffuse degenerative changes of the visualized lumbar spine. CT/Abdomen/Pelvis WITH Contrast IMPRESSION: Thickening of the terminal ileum as well as the cecum and descending colon with increased markings in the surrounding fat. Terminal ileitis and Crohn's disease should be ruled out. Electronically Signed: Desmond Mojica, at 14:50 EDT , Service support ,
--- NOTE | 2019-04-05 12:36 | EKG12_ITS ---
Test Reason : Blood Pressure : / mmHG Vent. Rate : 085 BPM Atrial Rate : 085 BPM P-R Int : 130 ms QRS Dur : 100 ms QT Int : 394 ms P-R-T Axes : 055 034 044 degrees QTc Int : 468 ms Normal sinus rhythm Septal infarct (cited on or before , age undetermined Nonspecific T-Wave Abnormality Abnormal ECG Confirmed by GASPER MARTINEZ, PATRICK ([id number]), book editor MICAH SALMERON ([id number]) on 04/07/2019 1:32:10 PM Referred By: SOY Confirmed By:PATRICK JACKMAN MD
[2019-04-05] MEDS: 0.9% Normal Saline 1,000 ML 125 ML IV (12:58)
[2019-04-05] MEDS: LORazepam 2 MG/ML Syringe 1 MG IV (12:58)
[2019-04-05] MEDS: Ondansetron 4 MG/2 ML Vial IV (12:58)
[2019-04-05 13:00] LABS: Absolute Lymphocyte Count 1.71 X10^3/uL (0.83-4.51); Absolute Neutrophil Count 3.4 X10^3/uL (2.0-7.7); Basophil# 0.13 X10^3/uL; Basophil% 2.3 % (0-1); Eosinophil# 0.05 X10^3/uL; Eosinophils% 0.9 % (0-5); Hematocrit 41.5 % (37-47); Hemoglobin 13.9 g/dL (12.0-15.0); Lymphocyte # 1.71 X10^3/ul (4.0); Lymphocyte % 29.7 % (19-41); Mean Corp Hgb Conc 33.5 g/dL (32-36); Mean Corpuscular Hgb 31.1 pg (27.0-32.0); Mean Corpuscular Volume 92.8 fL (81-99); Mean Platelet Vol. 8.8 fl (6.2-12.0); Monocyte# 0.45 X10^3/uL; Monocyte% 7.8 % (0-10); NRBC Flagged by Analyzer 0 % (0-5); Platelet Count 321 K/mm3 (150-450); RBC Distribution Width CV 12.9 % (11.6-14.6); RBC Distribution Width SD 43.4 fl (35.1-43.9); Red Blood Count 4.47 M/mm3 (4.2-5.4); White Blood Count 5.8 K/mm3 (4.4-11.0)
[2019-04-05 13:21] LABS: ALB/GLOB Ratio 0.8 RATIO (0.9-2.4); AST(SGOT) 13 U/L (15-37); Alanine Aminotransfer ALT/SGPT 13 U/L (13-56); Albumin, Serum 3.2 g/dL (3.2-5.0); Alkaline Phosphatase 99 U/L (45-117); Anion Gap 8 (5-15); BUN 6 mg/dL (7-18); BUN/Creat Ratio 8.6 RATIO (10-20); Chloride 108 mmol/L (98-107); EST Glomerular Filtration Rate 91 mL/min (>60); Est Glom Filt Rate - Afr Amer 110 mL/min (>60); Estimated Creatinine Clearance 74.98 ml/min; Globulin 4.1 g/dL (2.2-4.2); Glucose 94 mg/dL (74-106); Potassium 3.7 mmol/L (3.5-5.1); Protein, Total 7.3 g/dL (6.4-8.2); Sodium Level 144 mmol/L (136-145)
[2019-04-05 13:32] LABS: Lactic Acid 0.8 mmol/L (0.4-2.0)
[2019-04-05 14:00] VITALS: BP 167/91; PULSE 81; RESP 14; O2SAT 97
[2019-04-05 14:50] LABS: Bacteria 0 SEEN /hpf (None Seen); Color, Urine Yellow (Yellow); Glucose, Dipstick Normal (Normal); Ketone-Dipstick 5 mg/dl (Negative); Leukocyte Esterase-Dipstick Negative /ul (Negative); Mucous, Urine 0 SEEN /hpf (<or=2+); Nitrite-Dipstick Negative (Negative); Occult Blood-Urine 10 /ul (Negative); Protein-Dipstick 15 mg/dl (Negative); Red Blood Cells-Urine 0 SEEN /hpf (0-5); Specific Gravity, Urine 1.005 (1.002-1.030); Urine Bilirubin Dipstick Negative (Negative); Urine Clarity Clear (Clear); Urine Urobilinogen Normal (Normal); White Blood Cells 0 SEEN /hpf (0-5)
[2019-04-05 14:56] LABS: Squamous Epithelial Cells - UA 0-5 SEEN /hpf (5-10)
--- NOTE | 2019-04-05 15:13 | ED.VISSUMM ---
- ER Visit Summary Date of Service: 04/05/19 Chief Complaint: [Abdominal pain] History of Present Illness: The patient is a 63 F [presents to the emergency room with complaint of abdominal pain that started 2 years ago. Patient had pain off and on. Patient was seen in the emergency department several days ago for same complaint and had blood work and abdominal series that were unremarkable. Patient describes dry heaves. She is having about 5 watery stools a day. She denies any significant blood in her stool. Patient states that she is thirsty all the time. Patient feeling very anxious and she ran out of her Ativan which she takes daily. Patient denies any fevers. She denies urinary symptoms.] Patient has history of hypertension, coronary artery disease, esophagitis, anxiety, and back pain. Physical Examination: [HEENT-PERRLA, EOMI. Cranial nerves II through XII grossly intact. TMs clear. Mucous membranes moist. No adenopathy. Cardiovascular-regular rate and rhythm without murmur or ectopy Lungs-clear to auscultation, chest wall stable, no crepitus or subcu emphysema. Abdomen-normoactive bowel sounds, soft. Patient has some mild diffuse tenderness on palpation. There is no rebound, rigidity, or perineal signs. Extremities-intact ?4, normal range of motion, normal pulses, atraumatic] Test Results: [CBC with differential obtained showed a white count of 5.8, hemoglobin 13.9, hematocrit 41, platelets 321. Chemistries unremarkable. Urinalysis was normal. Troponin is less than 0.15. CT scan of the abdomen pelvis obtained was read by radiology as thickening of the terminal ileum as well as the cecum and descending colon with increased markings in the surrounding fat terminal ileitis and Crohn's disease should be ruled out.] Emergency Department Course and Treatment: [This was discussed with Dr. Oren Tejada who is on-call for general surgery. He has a start patient on Solu-Cortef IV. Patient also will be started on prednisone for home. Patient has been seen by him in the past. Patient also given Ativan 1 mg IV and she felt significantly improved symptomatically. Plan: Patient was started on prednisone and given a prescription for few Ativan. Patient to follow-up with general surgery for colonoscopy. Patient advised to return if worsening pain, fever, bloody stools, or conditions worsen anyway.] Disposition: [Discharged home stable condition.] Impression: [Abdominal pain-suspect Crohn's disease] This note was generated with [employer] dictation software. It may contain incorrect words, spelling, and punctuation that were not noted in review of the chart prior to signing ED Disposition - Plan for ED Patient: Referrals: Chucky Martinez MD [Primary Care Provider] -
--- NOTE | 2019-04-05 15:17 | ED.DEP ---
ED Disposition - Plan for ED Patient: Instructions: ABDOMINAL PAIN, Unknown Cause, (Female), Crohn's Disease, Panic Attack Prescriptions: Lorazepam [Ativan] 1 mg PO TID PRN #15 tab PRN Reason: Anxiety Prescription Printed Prednisone [Deltasone] 20 mg PO BID #14 tab Prescription Printed Referrals: Chucky Martinez MD [Primary Care Provider] - Oren Tejada MD [STAFF PHYSICIAN] - 3-5 Days
[2019-04-05] MEDS: Hydrocortisone Sod Succinate 100 MG/2 ML Vial 50 MG IV (15:30)
[2019-04-05 15:37] VITALS: BP 161/89; PULSE 67; RESP 14; O2SAT 97
== END 2019-04-05 15:38 | disposition home or self-care (01) ==
PROVIDERS: Emergency Provider Emergency Medicine; Family Provider Family Medicine; PCP Family Medicine
DX: R10.9 Unspecified abdominal pain (principal); K50.90 Crohn's disease, unspecified, without complications; I25.10 Atherosclerotic heart disease of native coronary artery without angina pectoris; I10 Essential (primary) hypertension; M54.9 Dorsalgia, unspecified; F41.9 Anxiety disorder, unspecified; Z72.0 Tobacco use; Z79.82 Long term (current) use of aspirin; Z79.52 Long term (current) use of systemic steroids; Z79.899 Other long term (current) drug therapy
CPT/HCPCS: 74177; 80053; 81001; 83605; 84484; 85025; 93005; 96374; 96375; 99283; J7030; Q9967; A4216; J2405

== ENCOUNTER 2019-04-06 13:59 | Emergency (ER) | payer MEDICARE, SELFPAY ==
[2019-04-05 11:55] VITALS: BMI 30.7
[2019-04-06 13:59] VITALS: BP 192/127; PULSE 81; RESP 17; TEMP 36.8; O2SAT 96
[2019-04-06 14:12] VITALS: BP 192/127; PULSE 94; RESP 16; O2SAT 95
[2019-04-06] MEDS: LORazepam 2 MG/ML Syringe 1 MG IV (15:03)
[2019-04-06] MEDS: 0.9% Normal Saline 1,000 ML 1000 ML IV (15:03)
[2019-04-06 15:20] LABS: Absolute Lymphocyte Count 1.94 X10^3/uL (0.83-4.51); Basophil# 0.12 X10^3/uL; Basophil% 1.6 % (0-1); Eosinophil# 0.05 X10^3/uL; Eosinophils% 0.7 % (0-5); Hematocrit 39.9 % (37-47); Hemoglobin 13.5 g/dL (12.0-15.0); Lymphocyte # 1.94 X10^3/ul (4.0); Lymphocyte % 25.6 % (19-41); Mean Corp Hgb Conc 33.8 g/dL (32-36); Mean Corpuscular Hgb 30.8 pg (27.0-32.0); Mean Corpuscular Volume 91.1 fL (81-99); Mean Platelet Vol. 8.8 fl (6.2-12.0); Monocyte# 0.44 X10^3/uL; Monocyte% 5.8 % (0-10); NRBC Flagged by Analyzer 0 % (0-5); Platelet Count 322 K/mm3 (150-450); RBC Distribution Width CV 13.2 % (11.6-14.6); RBC Distribution Width SD 43.4 fl (35.1-43.9); Red Blood Count 4.38 M/mm3 (4.2-5.4); White Blood Count 7.6 K/mm3 (4.4-11.0)
[2019-04-06 15:34] LABS: BUN 5 mg/dL (7-18); Creatinine, Serum 0.68 mg/dL (0.55-1.02); EST Glomerular Filtration Rate 93 mL/min (>60); Glucose 106 mg/dL (74-106)
[2019-04-06 15:35] LABS: ALB/GLOB Ratio 0.9 RATIO (0.9-2.4); AST(SGOT) 13 U/L (15-37); Alanine Aminotransfer ALT/SGPT 13 U/L (13-56); Albumin, Serum 3.3 g/dL (3.2-5.0); Alkaline Phosphatase 93 U/L (45-117); Anion Gap 6 (5-15); BUN/Creat Ratio 7.4 RATIO (10-20); Calcium,Total 9.3 mg/dL (8.5-10.1); Chloride 111 mmol/L (98-107); Est Glom Filt Rate - Afr Amer 113 mL/min (>60); Globulin 3.8 g/dL (2.2-4.2); Lipase 186 U/L (73-393); Potassium 3.6 mmol/L (3.5-5.1); Protein, Total 7.1 g/dL (6.4-8.2); Sodium Level 143 mmol/L (136-145)
--- NOTE | 2019-04-06 15:47 | ED.VISSUMM ---
- ER Visit Summary Date of Service: 04/06/19 Chief Complaint: Abdominal pain History of Present Illness: The patient is a 63 F who presents with abdominal pain, nausea, vomiting, and diarrhea. She was seen yesterday. There was concern for Crohn's disease. She had a CT done. This was reviewed with surgery. She was started on steroids and advised to follow-up. She reports continued nausea, vomiting, and diarrhea, but this is unchanged. She also is complaining of anxiety. She was prescribed Ativan, but she could not fill it because she had an existing prescription that she said she lost. She denies any suicidal or homicidal thoughts. Physical Examination: Afebrile and vital signs unremarkable except for hypertension. Heart regular. Lungs clear. Abdomen soft and nontender. Patient is anxious but otherwise unremarkable. Test Results: CBC, CMP, lipase unremarkable. There is no indication to repeat imaging or perform additional testing. Emergency Department Course and Treatment: Patient has continued GI symptoms. I did recheck her labs. They were unremarkable. She was treated with [place] for pain. She also received Ativan for her anxiety. Patient was advised that we cannot prescribe benzodiazepines. I explained this to her several times. She will have to follow-up with her doctor. She has an active prescription, and we cannot prescribe additional benzodiazepines. Patient will follow up with surgery as planned previously. Continue taking her other medications as prescribed. Follow-up with primary care for hypertension. Treatment Plan: As above Disposition: Discharge Impression: 1. Abdominal pain 2. Anxiety This note was generated with [employer] dictation software. It may contain incorrect words, spelling, and punctuation that were not noted in review of the chart prior to signing ED Disposition - Plan for ED Patient: Referrals: Chucky Martinez MD [Primary Care Provider] -
--- NOTE | 2019-04-06 15:50 | ED.DEP ---
ED Disposition - Plan for ED Patient: Instructions: ABDOMINAL PAIN, Unknown Cause, (Female) Referrals: Chucky Martinez MD [Primary Care Provider] -
[2019-04-06 16:04] VITALS: PULSE 98; RESP 15; O2SAT 96
[2019-04-06] MEDS: HYDROcodone Bitartrate/Apap 5/325 Tablet PO (16:04)
== END 2019-04-06 16:06 | disposition home or self-care (01) ==
LOC: ED 14:23
PROVIDERS: Emergency Provider Emergency Medicine; Family Provider Family Medicine; PCP Family Medicine
DX: R10.9 Unspecified abdominal pain (principal); R11.2 Nausea with vomiting, unspecified; R19.7 Diarrhea, unspecified; F41.9 Anxiety disorder, unspecified; Z79.82 Long term (current) use of aspirin; Z79.899 Other long term (current) drug therapy
CPT/HCPCS: 36415; 80053; 83690; 85025; 96361; 96374; 99284; J7030; A4216

== ENCOUNTER 2019-04-09 13:57 | Emergency (ER) | payer MEDICARE, SELFPAY ==
[2019-04-09 13:58] VITALS: BP 149/118; PULSE 123; RESP 16; TEMP 36.8; O2SAT 95; BMI 30.5
--- NOTE | 2019-04-09 15:41 | ED.DCSUM_ITS ---
- ER Visit Summary Date of Service: 04/09/19 Chief Complaint: Abdominal pain History of Present Illness: The patient is a 63 F presenting with abdominal pain, nausea, vomiting, diarrhea. This is her fourth ED visit since April 03. She has a history of chronic abdominal pain. She is scheduled to see [facility] for surgical referral for colonoscopy. She states she has vomited one time today and had 3 episodes of diarrhea. She states initially she was told her symptoms may be related to withdrawal from Ativan but she states she found her Ativan and does not believe she is in withdrawal. She is in pain management and states she has been taking her pain medications as directed. Physical Examination: Vitals are stable. Patient is afebrile. Alert no acute distress. HEENT exam is unremarkable. Neck is supple. Lungs are clear and equal bilaterally. Heart is regular and tachycardic Abdomen is soft left lower quadrant tenderness with no rebound or guarding Extremities are unremarkable. Skin is warm and dry. No focal neurologic deficit. Remainder of exam is unremarkable. Emergency Department Course and Treatment: Patient was given IV fluids, morphine, Phenergan. CBC, chemistries unremarkable. Lipase is normal. Urinalysis unremarkable. Troponin is negative. EKG is sinus rate of [address] abdomen pelvis shows there is NO acute intra- abdominal abnormality. Repeat heart rate 83. On reevaluation, patient is resting comfortably. She is given a prescription for Zofran. Advised follow-up with her primary care physician as scheduled. Advised return to ED if worsening complaints. Disposition: Discharge home Impression: Abdominal pain This note was generated with [employer] dictation software. It may contain incorrect words, spelling, and punctuation that were not noted in review of the chart prior to signing ED Disposition - Plan for ED Patient: Instructions: ABDOMINAL PAIN, Unknown Cause, (Female) Prescriptions: Ondansetron [Zofran Odt] 4 mg PO Q8H PRN PRN #10 tab PRN Reason: Nausea Prescription Printed Referrals: Chucky Martinez MD [Primary Care Provider] -
--- NOTE | 2019-04-09 15:45 | CT_ITS ---
STUDY: CT ABDOMEN AND PELVIS WITH CONTRAST REASON FOR EXAM: Female, 63 years old. Abdominal pain RADIATION DOSAGE (If Supplied By Facility): CTDIvol = ( 21.18 ) mGy, DLP = ( 1149.17 ) mGycm TECHNIQUE: Transaxial images were obtained from the dome of the diaphragm to the symphysis pubis without oral contrast. 100ML IV/Oral Isovue 300 was administered. Sagittal and coronal images were reconstructed. Individualized dose optimization techniques were used for this CT. COMPARISON: April 05, 2019 FINDINGS: The visualized lung bases are unremarkable. The visualized portions of the heart are within normal limits. Normal liver. Normal gallbladder and extrahepatic biliary system. Normal spleen. Normal pancreas. Normal bilateral adrenal glands. Normal right kidney. Normal left kidney. Normal visualized stomach. Normal small intestine. There are multiple colonic diverticula consistent with diverticulosis. There is NO evidence of acute diverticulitis or colitis. There is non-visualization of the appendix. There is NO indirect evidence of appendicitis. There is diffuse atherosclerotic calcification of the abdominal aorta, without a demonstrated aneurysm. Normal inferior vena cava. Normal retroperitoneum. Normal urinary bladder. There has been a hysterectomy. There is NO ascites, free air, abscess or adenopathy. Normal abdominal wall. Normal osseous structures. CT/Abdomen/Pelvis WITH Contrast IMPRESSION: There is NO acute intra-abdominal abnormality. Electronically Signed: Michel Doss MD at 19:22 EDT , Service support ,
--- NOTE | 2019-04-09 15:45 | EKG12_ITS ---
Test Reason : ABD PAIN Blood Pressure : / mmHG Vent. Rate : 092 BPM Atrial Rate : 092 BPM P-R Int : 126 ms QRS Dur : 096 ms QT Int : 356 ms P-R-T Axes : 055 042 044 degrees QTc Int : 440 ms Normal sinus rhythm Septal infarct (cited on or before 04-FEB-2019), age undetermined T wave abnormality, consider anterior ischemia Abnormal ECG Confirmed by GASPER MARTINEZ, PATRICK ([id number]), food expeditor MICAH SALMERON ([id number]) on 04/13/2019 10:30:15 AM Referred By: TAWANDA Confirmed By:PATRICK JACKMAN MD
[2019-04-09 16:01] LABS: Absolute Lymphocyte Count 2.75 X10^3/uL (0.83-4.51); Absolute Neutrophil Count 3.6 X10^3/uL (2.0-7.7); Basophil# 0.11 X10^3/uL; Basophil% 1.5 % (0-1); Eosinophil# 0.15 X10^3/uL; Eosinophils% 2.1 % (0-5); Hemoglobin 15.1 g/dL (12.0-15.0); Lymphocyte # 2.75 X10^3/ul (4.0); Lymphocyte % 38.1 % (19-41); Mean Corp Hgb Conc 32.8 g/dL (32-36); Mean Corpuscular Volume 94.5 fL (81-99); Mean Platelet Vol. 8.4 fl (6.2-12.0); Monocyte# 0.55 X10^3/uL; Monocyte% 7.6 % (0-10); NRBC Flagged by Analyzer 0 % (0-5); Neutrophil # 3.64 X10^3/uL (2.7-7.7); Neutrophil % 50.4 % (47-70); Platelet Count 284 K/mm3 (150-450); RBC Distribution Width CV 13.3 % (11.6-14.6); RBC Distribution Width SD 45.5 fl (35.1-43.9); Red Blood Count 4.87 M/mm3 (4.2-5.4); White Blood Count 7.2 K/mm3 (4.4-11.0)
[2019-04-09 16:12] LABS: Mucous, Urine 0 SEEN /hpf (<or=2+); Red Blood Cells-Urine 0 SEEN /hpf (0-5)
[2019-04-09 16:15] LABS: Color, Urine Yellow (Yellow); Glucose, Dipstick Normal (Normal); Ketone-Dipstick Negative (Negative); Leukocyte Esterase-Dipstick 25 /ul (Negative); Nitrite-Dipstick Negative (Negative); Occult Blood-Urine Negative /ul (Negative); Protein-Dipstick 15 mg/dl (Negative); Urine Bilirubin Dipstick Negative (Negative); Urine Clarity Sl. Cloudy (Clear); Urine Urobilinogen Normal (Normal)
[2019-04-09 16:20] LABS: ALB/GLOB Ratio 0.9 RATIO (0.9-2.4); AST(SGOT) 11 U/L (15-37); Alanine Aminotransfer ALT/SGPT 14 U/L (13-56); Albumin, Serum 3.8 g/dL (3.2-5.0); Alkaline Phosphatase 107 U/L (45-117); Anion Gap 6 (5-15); BUN 9 mg/dL (7-18); BUN/Creat Ratio 10.6 RATIO (10-20); Calcium,Total 9.9 mg/dL (8.5-10.1); Chloride 107 mmol/L (98-107); Creatinine, Serum 0.85 mg/dL (0.55-1.02); EST Glomerular Filtration Rate 72 mL/min (>60); Est Glom Filt Rate - Afr Amer 87 mL/min (>60); Estimated Creatinine Clearance 61.75 ml/min; Globulin 4.2 g/dL (2.2-4.2); Glucose 83 mg/dL (74-106); Lipase 139 U/L (73-393); Potassium 3.8 mmol/L (3.5-5.1); Sodium Level 144 mmol/L (136-145)
[2019-04-09 16:24] LABS: Bacteria 1+ /hpf (None Seen); Squamous Epithelial Cells - UA 0-5 SEEN /hpf (5-10); White Blood Cells 0-5 SEEN /hpf (0-5)
[2019-04-09] MEDS: Morphine 4 MG/ML Syringe IV ×2 (16:34→20:28)
[2019-04-09] MEDS: proMETHazine 25 MG/ML Syringe 6.25 MG IV ×2 (16:34→20:28)
[2019-04-09] MEDS: 0.9% Normal Saline 1,000 ML 1000 ML IV (16:34)
[2019-04-09 18:03] VITALS: BP 149/95
[2019-04-09 19:36] VITALS: BP 163/92; PULSE 83; RESP 18; O2SAT 95
--- NOTE | 2019-04-09 20:19 | ED.DEP ---
ED Disposition - Plan for ED Patient: Instructions: ABDOMINAL PAIN, Unknown Cause, (Female) Prescriptions: Ondansetron [Zofran Odt] 4 mg PO Q8H PRN PRN #10 tablet PRN Reason: Nausea Referrals: Chucky Martinez MD [Primary Care Provider] -
[2019-04-09 20:54] VITALS: RESP 18
== END 2019-04-09 20:55 | disposition home or self-care (01) ==
LOC: ED 15:22
PROVIDERS: Emergency Provider Emergency Medicine; Family Provider Family Medicine; PCP Family Medicine
DX: R10.9 Unspecified abdominal pain (principal); G89.29 Other chronic pain; R11.2 Nausea with vomiting, unspecified; R19.7 Diarrhea, unspecified; I25.10 Atherosclerotic heart disease of native coronary artery without angina pectoris; I25.2 Old myocardial infarction; Z72.0 Tobacco use; Z79.82 Long term (current) use of aspirin; Z79.52 Long term (current) use of systemic steroids; Z79.899 Other long term (current) drug therapy; Z86.73 Personal history of transient ischemic attack (TIA), and cerebral infarction without residual deficits
CPT/HCPCS: 74177; 80053; 81001; 83690; 84484; 85025; 93005; 96361; 96374; 96375; 96376; 99283; J7030; Q9967; A4216

== ENCOUNTER 2019-06-13 21:29 | Emergency (ER) | payer MEDICARE, SELFPAY ==
[2019-06-13 21:31] VITALS: BP 176/116; PULSE 93; RESP 16; TEMP 36.9; O2SAT 93; BMI 27.4
--- NOTE | 2019-06-13 21:46 | CT_ITS ---
STUDY: CT ABDOMEN AND PELVIS WITHOUT CONTRAST REASON FOR EXAM: Female, 63 years old. Bilateral flank pain RADIATION DOSAGE (If Supplied By Facility): CTDIvol = ( 10.31 ) mGy, DLP = ( 484.31 ) mGycm TECHNIQUE: Transaxial images were obtained from the dome of the diaphragm to the symphysis pubis without oral contrast, and without intravenous contrast. Sagittal and coronal images were reconstructed. Individualized dose optimization techniques were used for this CT. COMPARISON: April 09, 2019 CT abdomen and pelvis FINDINGS: The visualized lung bases are unremarkable. Small pericardial effusion. Normal liver. Normal gallbladder and extrahepatic biliary system. Normal spleen. Normal pancreas. Normal bilateral adrenal glands. Normal right kidney. Punctate nonobstructing nephrolith on the left. Normal visualized stomach. Normal small intestine. There are multiple colonic diverticula consistent with diverticulosis. There is non-visualization of the appendix. Normal abdominal aorta. Normal inferior vena cava. Normal retroperitoneum. Normal urinary bladder. There is a small umbilical hernia containing fat. Normal osseous structures. CT/Abdomen/Pelvis without Cont IMPRESSION: Punctate nonobstructing nephrolith on the left. Electronically Signed: Rodney Swanson MD at 22:41 EDT , Service support ,
--- NOTE | 2019-06-13 21:48 | ED.DCSUM_ITS ---
History of Present Illness Chief Complaint: Flank Pain Informant: Patient Onset: Yesterday Narrative: Bilateral flank pain worsened since yesterday. Currently 8 out of 10. Urine urgency and frequency. No fevers. Chronic nausea due to history of Sanchez's esophagus, states has strictures, refer to different GI specialist for potential dilatation. History of kidney stones in the past. Also reports to me 2 months ago saw her PCP office in the clinic, had blood drawn was told to go directly to the hospital due to kidney failure. She states she did not want to go therefore was brought back the following day was told blood work did not change and was told he needed to go to the hospital however she has not. She was referred to nephrology however currently does not have an appointment. Chronic intermittent swelling lower extremities. Came to ED due to increasing pain since yesterday. Prior similar symptoms: Yes Past Medical History - Allergies and Home Meds Allergies/Adverse Reactions: Allergies No Known Allergies Allergy (Verified 06/13/19 21:31) Primary Care Physician: Chucky Martinez MD [Primary Care Provider] - Surgical History: appendectomy, hysterectomy Smoking Status: Current every day smoker - Family History Maternal Family History: Family History (Last Reviewed 07/22/18 @ 04:07 by Thor Daniel MD) Mother Hypertension CAD (coronary artery disease) CVA (cerebral vascular accident) Myocardial infarction Grandmother Myocardial infarction Family History: Reports: Heart Disease Paternal Family History: Family History (Last Reviewed 07/22/18 @ 04:07 by Thor Daniel MD) Mother Hypertension CAD (coronary artery disease) CVA (cerebral vascular accident) Myocardial infarction Grandmother Myocardial infarction Family History: Reports: No pertinent history Review of Systems All systems negative except as indicated General: Denies: Chills, Fever, Sweats Eyes: Denies: Visual changes - bilaterally, Diplopia ENT: Denies: Rhinorrhea, Sore throat Cardiovascular: Denies: Chest pain, Palpitations Respiratory: Denies: Dyspnea, Cough, Dyspnea on exertion Gastrointestinal: Denies: Abdominal pain, Nausea, Vomiting, Diarrhea, Melena, Hematochezia Genitourinary: Denies: Dysuria, Hematuria, Frequency Musculoskeletal: Reports: Back pain. Denies: Extremity Pain Skin: Denies: Rash, Wounds Neurological: Denies: Headache, Weakness, Numbness Physical Exam Vital Signs/Narrative: Vital Signs Temp Pulse Resp BP Pulse Ox 06/13/19 21:31 98.4 F 93 16 176/116 H 93 Inital Vital Signs reviewed: Yes General: Well nourished, Well developed, No Acute Distress Head: Normocephalic, Atraumatic Eyes: Perrl, EOMI ENT: Moist mucous membranes, No rhinorrhea Neck: Supple, Nontender Cardiovascular: Regular rate, Regular rhythm, No murmurs Respiratory: No distress, CTA bilaterally, Chest nontender Abdomen: Soft, Nontender, Nondistended, Normal bowel sounds Back: Nontender, Normal Inspection. Negative for: CVA tenderness Extremities: Nontender, No edema Skin: Normal color, No rash Neurological: Alert, Oriented x3, Cranial nerves II-XII grossly intact, Normal Strength, Normal Sensation Psychological: Normal affect, Normal Mood Diagnostic/Tx/Re-eval Clinical Impression(s) from Imaging Studies Abdomen/Pelvis CT 06/13/19 21:46 IMPRESSION: Punctate nonobstructing nephrolith on the left. Electronically Signed: Rodney Swanson MD at 22:41 EDT , Service support , Abnormal Lab Results 06/13/19 06/13/19 06/13/19 22:00 22:00 22:00 WBC 6.4 RBC 4.36 Hgb 13.1 Hct 39.5 MCV 90.6 MCH 30.0 MCHC 33.2 RDW Std Deviation 46.3 H RDW Coeff of Sariah 13.8 Plt Count 206 MPV 9.3 Immature Gran % (Auto) 0.300 Neut % (Auto) 48.3 Lymph % (Auto) 38.4 [place] % (Auto) 7.8 Eos % (Auto) 4.4 Baso % (Auto) 0.8 Absolute Neuts (auto) 3.1 Absolute Lymphs (auto) 2.47 Nucleated RBC % 0 Sodium 141 Potassium 4.5 Chloride 108 H Carbon Dioxide 28.0 Anion Gap 5 BUN 14 Creatinine 0.84 Estim Creat Clear Calc 65.01 Est GFR (MDRD) Af Amer 88 Est GFR (MDRD) Non-Af 72 BUN/Creatinine Ratio 16.6 Glucose 105 Calcium 10.0 Urine Color Yellow Urine Clarity Sl. Cloudy Urine pH 5.0 Ur Specific [place] 1.025 Urine Protein 100 H Urine Glucose (UA) Normal Urine Ketones 5 H Urine Occult Blood 250 H Urine Nitrite Negative Urine Bilirubin Negative Urine Urobilinogen 1 H Ur Leukocyte Esterase 25 H Urine RBC 10-25 SEEN Urine WBC 0-5 SEEN Ur Squamous Epith Cells 0-5 SEEN Urine Bacteria 0 SEEN Hyaline Casts 5-10 SEEN Urine Mucus 3+ - Medical Decision Making Patient vital signs stable, nontoxic. Renal stone protocol initiated due to her symptoms, treated Zofran and morphine. Labs are stable normal creatinine. Urine noted leukocytes, red blood cells. Flank scan shows a punctate nephrol ithiasis on the left. There is no obstructive uropathy. Urine culture sent. With her pain symptoms and urgency start antibiotics. From records she is dealing with Sanchez's esophagus. On reevaluation pain more improved. She is requesting additional dose through the IV. She states she does not want any prescription for pain medicines for home. She states she does have Percocets at home if she needs them. She will be started on Keflex suspension due to her swallowing difficulties. She has antiemetics at home. She will follow-up as an outpatient. All questions were answered. ED Disposition - Plan for ED Patient: Disposition: Home or Assisted Living Diagnosis: Flank pain, UTI (urinary tract infection) Instructions: FLANK PAIN, Uncertain Cause, Understanding Urinary Tract Infections (UTIs) Prescriptions: Cephalexin Suspension [Keflex Suspension] 500 mg PO Q12 7 Days #140 ml Referrals: Chucky Martinez MD [Primary Care Provider] - 3-5 Days if not improving
[2019-06-13] MEDS: 0.9% Normal Saline 1,000 ML 250 ML IV (21:56)
[2019-06-13] MEDS: Morphine 4 MG/ML Syringe IV ×2 (21:56→23:13)
[2019-06-13] MEDS: Ondansetron 4 MG/2 ML Vial IV (21:56)
[2019-06-13 22:13] LABS: Bacteria 0 SEEN /hpf (None Seen)
[2019-06-13 22:18] LABS: Absolute Lymphocyte Count 2.47 X10^3/uL (0.83-4.51); Absolute Neutrophil Count 3.1 X10^3/uL (2.0-7.7); Basophil# 0.05 X10^3/uL; Basophil% 0.8 % (0-1); Color, Urine Yellow (Yellow); Eosinophil# 0.28 X10^3/uL; Eosinophils% 4.4 % (0-5); Glucose, Dipstick Normal (Normal); Hematocrit 39.5 % (37-47); Hemoglobin 13.1 g/dL (12.0-15.0); Ketone-Dipstick 5 mg/dl (Negative); Leukocyte Esterase-Dipstick 25 /ul (Negative); Lymphocyte # 2.47 X10^3/ul (4.0); Lymphocyte % 38.4 % (19-41); Mean Corp Hgb Conc 33.2 g/dL (32-36); Mean Corpuscular Volume 90.6 fL (81-99); Mean Platelet Vol. 9.3 fl (6.2-12.0); Monocyte% 7.8 % (0-10); NRBC Flagged by Analyzer 0 % (0-5); Neutrophil # 3.11 X10^3/uL (2.7-7.7); Neutrophil % 48.3 % (47-70); Nitrite-Dipstick Negative (Negative); Occult Blood-Urine 250 /ul (Negative); Platelet Count 206 K/mm3 (150-450); Protein-Dipstick 100 mg/dl (Negative); RBC Distribution Width CV 13.8 % (11.6-14.6); RBC Distribution Width SD 46.3 fl (35.1-43.9); Red Blood Count 4.36 M/mm3 (4.2-5.4); Specific Gravity, Urine 1.025 (1.002-1.030); Urine Bilirubin Dipstick Negative (Negative); Urine Clarity Sl. Cloudy (Clear); Urine Urobilinogen 1 mg/dl (Normal); White Blood Count 6.4 K/mm3 (4.4-11.0)
[2019-06-13 22:29] LABS: Hyaline Cast 5-10 SEEN /lpf (0-5)
[2019-06-13 22:30] LABS: Mucous, Urine 3+ /hpf (<or=2+); Red Blood Cells-Urine 10-25 SEEN /hpf (0-5); Squamous Epithelial Cells - UA 0-5 SEEN /hpf (5-10); White Blood Cells 0-5 SEEN /hpf (0-5)
[2019-06-13 22:35] LABS: Anion Gap 5 (5-15); BUN 14 mg/dL (7-18); BUN/Creat Ratio 16.6 RATIO (10-20); Chloride 108 mmol/L (98-107); Creatinine, Serum 0.84 mg/dL (0.55-1.02); EST Glomerular Filtration Rate 72 mL/min (>60); Est Glom Filt Rate - Afr Amer 88 mL/min (>60); Estimated Creatinine Clearance 65.01 ml/min; Glucose 105 mg/dL (74-106); Potassium 4.5 mmol/L (3.5-5.1); Sodium Level 141 mmol/L (136-145)
[2019-06-13] MEDS: Cephalexin Suspension 250 MG/5 ML PO.SYRINGE 500 MG PO (23:13)
[2019-06-13 23:14] VITALS: BP 131/77; PULSE 73; O2SAT 93
== END 2019-06-13 23:22 | disposition home or self-care (01) ==
PROVIDERS: Emergency Provider Emergency Medicine; Family Provider Family Medicine; PCP Family Medicine
DX: N39.0 Urinary tract infection, site not specified (principal); N20.0 Calculus of kidney; K22.70 Barrett's esophagus without dysplasia; R13.10 Dysphagia, unspecified; M79.89 Other specified soft tissue disorders; Z79.82 Long term (current) use of aspirin; Z79.899 Other long term (current) drug therapy; F17.200 Nicotine dependence, unspecified, uncomplicated; Z87.442 Personal history of urinary calculi; Z90.710 Acquired absence of both cervix and uterus
CPT/HCPCS: 74176; 80048; 81001; 85025; 87086; 87088; 96361; 96374; 96375; 96376; 99284; J7030; J2405

== ENCOUNTER 2019-08-15 23:00 | Emergency (ER) | payer MEDICARE, SELFPAY ==
[2019-08-15 23:00] VITALS: BP 137/81; PULSE 74; RESP 15; TEMP 36.6; O2SAT 99; BMI 28.9
--- NOTE | 2019-08-15 23:33 | ED.DCSUM_ITS ---
History of Present Illness Chief Complaint: Abd Pain Informant: Patient Onset: Month(s) Context: Gradual Onset Timing: Waxes and wanes Current Severity: Moderate Maximum Severity: Severe Narrative: Patient presents with continued epigastric pain. She is states that she is been dealing with epigastric pain for at least the last year. Over the last several weeks the epigastric pain is gotten worse, especially in the mornings. She reports nausea and vomiting. She reports pain through to her back over the past couple of days. She states that she has had an upper scope, but is probably been 2 years since this was done. She voices frustration with her primary care physician on not getting further work-up and evaluation. Patient is on Percocet as well as multiple different medications for her stomach per her report. She has not had fever or chills. Prior abdominal surgeries include appendectomy and hysterectomy. She still has her gallbladder. - Past Medical History (1) Anxiety and depression Status: Chronic (2) Atherosclerotic heart disease of [place] coronary artery without angina pectoris Status: Chronic Comment: Mild (3) Cardiomyopathy Status: Chronic (4) Essential hypertension Status: Chronic (5) GERD (gastroesophageal reflux disease) Status: Chronic (6) Hyperlipidemia Status: Chronic (7) NSTEMI (non-ST elevated myocardial infarction) Status: Chronic (8) EVELYN (obstructive sleep apnea) Status: Chronic (9) TIA (transient ischemic attack) Status: Chronic Past Medical History - Allergies and Home Meds Allergies/Adverse Reactions: Allergies No Known Allergies Allergy (Verified 08/15/19 23:03) Primary Care Physician: Chucky Martinez MD [Primary Care Provider] - Prior records reviewed: Yes Surgical History: appendectomy, hysterectomy Smoking Status: Light Smoker (<10/day) - Family History Maternal Family History: Family History (Last Reviewed 07/22/18 @ 04:07 by Thor Daniel MD) Mother Hypertension CAD (coronary artery disease) CVA (cerebral vascular accident) Myocardial infarction Grandmother Myocardial infarction Family History: Reports: Heart Disease Paternal Family History: Family History (Last Reviewed 07/22/18 @ 04:07 by Thor Daniel MD) Mother Hypertension CAD (coronary artery disease) CVA (cerebral vascular accident) Myocardial infarction Grandmother Myocardial infarction Family History: Reports: No pertinent history Review of Systems General: Denies: Chills, Fever Eyes: Denies: Visual changes - bilaterally ENT: Denies: Bilateral ear pain Cardiovascular: Denies: Chest pain Respiratory: Denies: Dyspnea, Cough Gastrointestinal: Reports: Abdominal pain, Nausea. Denies: Vomiting, Diarrhea Genitourinary: Denies: Dysuria Musculoskeletal: Reports: Back pain Skin: Denies: Rash Neurological: Denies: Headache Hematologic: Denies: Easy bruising, Easy bleeding Allergy: Denies: Uticaria Physical Exam Vital Signs/Narrative: Vital Signs Temp Pulse Resp BP Pulse Ox 08/15/19 23:00 97.9 F 74 15 137/81 H 99 Inital Vital Signs reviewed: Yes General: Well nourished, Well developed Head: Normocephalic ENT: Moist mucous membranes Neck: Supple Cardiovascular: Regular rate, Regular rhythm Respiratory: No distress, CTA bilaterally Abdomen: Soft, Tender - Tenderness in the epigastrium and right upper quadrant., Hypoactive bowel sounds. Negative for: Guarding, Rebound tenderness Extremities: Nontender Skin: Normal color Neurological: Alert, Oriented x3 Psychological: Normal affect Diagnostic/Tx/Re-eval Laboratory Results 08/15/19 08/15/19 23:58 23:58 WBC 6.9 RBC 4.11 L Hgb 12.9 Hct 38.1 MCV 92.7 MCH 31.4 MCHC 33.9 RDW Std Deviation 43.9 RDW Coeff of Sariah 12.8 Plt Count 183 MPV 9.2 Immature Gran % (Auto) 0.300 Neut % (Auto) 44.1 L Lymph % (Auto) 38.4 [place] % (Auto) 8.4 Eos % (Auto) 7.8 H Baso % (Auto) 1.0 Absolute Neuts (auto) 3.1 Absolute Lymphs (auto) 2.65 Nucleated RBC % 0 Sodium 144 Potassium 4.0 Chloride 110 H Carbon Dioxide 32.0 Anion Gap 2 L BUN 17 Creatinine 1.03 H Estim Creat Clear Calc 50.96 Est GFR (MDRD) Af Amer 70 Est GFR (MDRD) Non-Af 58 L BUN/Creatinine Ratio 16.5 Glucose 91 Calcium 9.5 Total Bilirubin 0.20 Direct Bilirubin < 0.05 AST 13 L ALT 13 Alkaline Phosphatase 133 H Total Protein 6.7 Albumin 3.3 Globulin 3.4 Lipase 105 - Medical Decision Making Patient was given Dilaudid and Zofran here for pain. On repeat evaluation she is resting more comfortably. I discussed with her that this does appear to be a chronic ongoing problem. She is already on narcotic analgesia as well as multiple medications for her stomach. I did recommend follow-up with surgery for a repeat EGD as it seems her symptoms have worsened since she was previously imaged. She will be referred to Dr. Damon, on-call for [facility]. Patient is comfortable with this plan. ED Disposition - Plan for ED Patient: Disposition: Home or Assisted Living Diagnosis: Abdominal pain Instructions: ABDOMINAL PAIN, Unknown Cause, (Female) Referrals: Shelton Damon MD [STAFF PHYSICIAN] - As soon as possible
[2019-08-15] MEDS: Morphine 4 MG/ML Syringe IV (23:51)
[2019-08-15] MEDS: Ondansetron 4 MG/2 ML Vial IV (23:51)
[2019-08-15] MEDS: 0.9% Normal Saline 1,000 ML 1000 ML IV (23:51)
[2019-08-15 23:57] VITALS: BP 131/80; PULSE 80; RESP 15; O2SAT 98
[2019-08-16 00:08] LABS: Absolute Lymphocyte Count 2.65 X10^3/uL (0.83-4.51); Absolute Neutrophil Count 3.1 X10^3/uL (2.0-7.7); Basophil# 0.07 X10^3/uL; Eosinophil# 0.54 X10^3/uL; Eosinophils% 7.8 % (0-5); Hematocrit 38.1 % (37-47); Hemoglobin 12.9 g/dL (12.0-15.0); Lymphocyte # 2.65 X10^3/ul (4.0); Lymphocyte % 38.4 % (19-41); Mean Corp Hgb Conc 33.9 g/dL (32-36); Mean Corpuscular Hgb 31.4 pg (27.0-32.0); Mean Corpuscular Volume 92.7 fL (81-99); Mean Platelet Vol. 9.2 fl (6.2-12.0); Monocyte# 0.58 X10^3/uL; Monocyte% 8.4 % (0-10); NRBC Flagged by Analyzer 0 % (0-5); Neutrophil # 3.05 X10^3/uL (2.7-7.7); Neutrophil % 44.1 % (47-70); Platelet Count 183 K/mm3 (150-450); RBC Distribution Width CV 12.8 % (11.6-14.6); RBC Distribution Width SD 43.9 fl (35.1-43.9); Red Blood Count 4.11 M/mm3 (4.2-5.4); White Blood Count 6.9 K/mm3 (4.4-11.0)
[2019-08-16 00:31] LABS: AST(SGOT) 13 U/L (15-37); Alanine Aminotransfer ALT/SGPT 13 U/L (13-56); Albumin, Serum 3.3 g/dL (3.2-5.0); Alkaline Phosphatase 133 U/L (45-117); Anion Gap 2 (5-15); BUN 17 mg/dL (7-18); BUN/Creat Ratio 16.5 RATIO (10-20); Bilirubin, Direct < 0.05 mg/dL (0.00-0.30); Calcium,Total 9.5 mg/dL (8.5-10.1); Chloride 110 mmol/L (98-107); Creatinine, Serum 1.03 mg/dL (0.55-1.02); EST Glomerular Filtration Rate 58 mL/min (>60); Est Glom Filt Rate - Afr Amer 70 mL/min (>60); Estimated Creatinine Clearance 50.96 ml/min; Globulin 3.4 g/dL (2.2-4.2); Glucose 91 mg/dL (74-106); Lipase 105 U/L (73-393); Protein, Total 6.7 g/dL (6.4-8.2); Sodium Level 144 mmol/L (136-145)
[2019-08-16 00:54] VITALS: BP 128/80; PULSE 78; RESP 14; O2SAT 98
== END 2019-08-16 00:59 | disposition home or self-care (01) ==
PROVIDERS: Emergency Provider Emergency Medicine; Family Provider Family Medicine; PCP Family Medicine
DX: R10.13 Epigastric pain (principal); R10.11 Right upper quadrant pain; I25.10 Atherosclerotic heart disease of native coronary artery without angina pectoris; I25.2 Old myocardial infarction; I42.9 Cardiomyopathy, unspecified; I10 Essential (primary) hypertension; E78.5 Hyperlipidemia, unspecified; K21.9 Gastro-esophageal reflux disease without esophagitis; F32.9 Major depressive disorder, single episode, unspecified; F41.9 Anxiety disorder, unspecified; F17.200 Nicotine dependence, unspecified, uncomplicated; Z90.710 Acquired absence of both cervix and uterus; Z90.49 Acquired absence of other specified parts of digestive tract; Z79.82 Long term (current) use of aspirin; Z79.899 Other long term (current) drug therapy; Z86.73 Personal history of transient ischemic attack (TIA), and cerebral infarction without residual deficits
CPT/HCPCS: 80048; 80076; 83690; 85025; 96361; 96374; 96375; 99283; J7030; J2405

== ENCOUNTER 2019-10-29 21:00 | Emergency (ER) | payer MEDICARE, MEDICAID, SELFPAY ==
[2019-09-09 11:02] VITALS: BMI 27.3
[2019-10-29 21:01] VITALS: BP 159/87; PULSE 73; RESP 16; TEMP 36.6; O2SAT 95; BMI 28.2
[2019-10-29 21:07] VITALS: RESP 16
--- NOTE | 2019-10-29 21:58 | RAD_ITS ---
HISTORY:PATIENT WITH CHEST PAIN THAT STARTED ABOUT AN HOUR AGO WHILE SHE WAS TV. PATIENT IS DEALING WITH ESOPHAGUS ISSUES CURRENTLY. EXAMINATION/TECHNIQUE: XR Chest 1 View: COMPARISON: March 07, 2019 FINDINGS: LINES/DEVICES: None. LUNGS: No consolidation, edema or effusion. No pneumothorax. MEDIASTINUM AND CARDIOVASCULAR STRUCTURES: Cardiac silhouette not enlarged. Central airways and mediastinal contour are unremarkable. BONES AND SOFT TISSUES: Unremarkable. RAD/Chest 1 View (Portable) IMPRESSION: No radiographic evidence of acute cardiopulmonary disease. at 2244 Reported and signed by: Avelina Montanez DO Electronically Signed: Avelina Montanez DO at 22:43 EST Tel , Service support ,
--- NOTE | 2019-10-29 21:59 | EKG12_ITS ---
Test Reason : CP Blood Pressure : / mmHG Vent. Rate : 075 BPM Atrial Rate : 075 BPM P-R Int : 140 ms QRS Dur : 104 ms QT Int : 372 ms P-R-T Axes : 060 029 062 degrees QTc Int : 415 ms Normal sinus rhythm Septal infarct (cited on or before 04-FEB-2019) T wave abnormality, consider anterior ischemia Abnormal ECG Confirmed by DARRELL PATIÑO ([id number]), newspaper or periodical editor MARIA DEL ROSARIO ANNE ([id number]) on 11/01/2019 2:05:08 PM Referred By: OLGA DUMAS Confirmed By:DARRELL PATIÑO
[2019-10-29] MEDS: LORazepam 2 MG/ML Syringe 0.5 MG IV (22:09)
[2019-10-29 22:13] VITALS: BP 146/90; PULSE 64; RESP 16; O2SAT 93
[2019-10-29] MEDS: 0.9% Normal Saline 1,000 ML 150 ML IV (22:13)
[2019-10-29 22:27] LABS: Absolute Lymphocyte Count 3.02 X10^3/uL (0.83-4.51); Absolute Neutrophil Count 3.1 X10^3/uL (2.0-7.7); Basophil# 0.04 X10^3/uL; Basophil% 0.6 % (0-1); Eosinophil# 0.25 X10^3/uL; Eosinophils% 3.6 % (0-5); Hematocrit 41.7 % (37-47); Hemoglobin 14.2 g/dL (12.0-15.0); Lymphocyte # 3.02 X10^3/ul (4.0); Lymphocyte % 43.7 % (19-41); Mean Corp Hgb Conc 34.1 g/dL (32-36); Mean Corpuscular Hgb 31.4 pg (27.0-32.0); Mean Corpuscular Volume 92.3 fL (81-99); Mean Platelet Vol. 9.4 fl (6.2-12.0); Monocyte# 0.46 X10^3/uL; Monocyte% 6.7 % (0-10); NRBC Flagged by Analyzer 0 % (0-5); Neutrophil # 3.12 X10^3/uL (2.7-7.7); Neutrophil % 45.1 % (47-70); Platelet Count 226 K/mm3 (150-450); RBC Distribution Width CV 11.9 % (11.6-14.6); Red Blood Count 4.52 M/mm3 (4.2-5.4); White Blood Count 6.9 K/mm3 (4.4-11.0)
[2019-10-29 22:33] LABS: AST(SGOT) 13 U/L (15-37); Alanine Aminotransfer ALT/SGPT 15 U/L (13-56); Albumin, Serum 3.3 g/dL (3.2-5.0); Alkaline Phosphatase 134 U/L (45-117); Anion Gap 3 (5-15); BUN 12 mg/dL (7-18); BUN/Creat Ratio 14.7 RATIO (10-20); Bilirubin, Direct 0.12 mg/dL (0.00-0.30); Calcium,Total 9.7 mg/dL (8.5-10.1); Chloride 109 mmol/L (98-107); Creatinine, Serum 0.82 mg/dL (0.55-1.02); EST Glomerular Filtration Rate 75 mL/min (>60); Est Glom Filt Rate - Afr Amer 91 mL/min (>60); Estimated Creatinine Clearance 64.01 ml/min; Globulin 3.8 g/dL (2.2-4.2); Glucose 91 mg/dL (74-106); Lipase 55 U/L (73-393); Potassium 3.8 mmol/L (3.5-5.1); Protein, Total 7.1 g/dL (6.4-8.2); Sodium Level 141 mmol/L (136-145)
[2019-10-29 23:14] VITALS: BP 138/73; PULSE 58; RESP 14; O2SAT 92
[2019-10-30] MEDS: hydrOXYzine PAM 25 MG Capsule PO (01:03)
[2019-10-30 01:04] VITALS: PULSE 70; RESP 16; O2SAT 96
--- NOTE | 2019-10-30 01:17 | ED.VIS.GEN ---
History of Present Illness Chief Complaint: Chest Pain Detail of Chief Complaint: Chest pain, anxiety Informant: Patient Onset: Today Current Severity: Mild Maximum Severity: Moderate Narrative: Patient presents with chest pain and anxiety. She has had problems with her esophagus for quite some time. She had an EGD 2 months ago and states she supposed to see a specialist at [facility] the [facility]. She is an appointment in January. She states she continues to get up every morning and have vomiting. She has been having frequent anxiety over this and states she woke up 5 times last night with anxiety attacks. Tonight she got pain in her upper sternal area so EMS was called. - Past Medical History (1) Anxiety and depression Status: Chronic (2) Atherosclerotic heart disease of [place] coronary artery without angina pectoris Status: Chronic Comment: Mild (3) Cardiomyopathy Status: Chronic (4) Essential hypertension Status: Chronic (5) GERD (gastroesophageal reflux disease) Status: Chronic (6) Hyperlipidemia Status: Chronic (7) NSTEMI (non-ST elevated myocardial infarction) Status: Chronic (8) EVELYN (obstructive sleep apnea) Status: Chronic (9) TIA (transient ischemic attack) Status: Chronic Past Medical History - Allergies and Home Meds Allergies/Adverse Reactions: Allergies No Known Allergies Allergy (Verified 10/29/19 21:06) Primary Care Physician: Chucky Martinez MD [Primary Care Provider] - 1 Week Prior records reviewed: Yes Surgical History: appendectomy, hysterectomy Lives: With Family Smoking Status: Current every day smoker - Family History Maternal Family History: Family History (Last Reviewed 07/22/18 @ 04:[address] Thor Daniel MD) Mother Hypertension CAD (coronary artery disease) CVA (cerebral vascular accident) Myocardial infarction Grandmother Myocardial infarction Family History: Reports: Heart Disease Paternal Family History: Family History (Last Reviewed 07/22/18 @ 04:[address] Thor Daniel MD) Mother Hypertension CAD (coronary artery disease) CVA (cerebral vascular accident) Myocardial infarction Grandmother Myocardial infarction Family History: Reports: No pertinent history Review of Systems General: Denies: Chills, Fever Eyes: Denies: Visual changes - bilaterally ENT: Denies: Bilateral ear pain Cardiovascular: Reports: Chest pain. Denies: Palpitations, Heart racing Respiratory: Reports: Dyspnea, Cough Gastrointestinal: Reports: Abdominal pain, Nausea, Vomiting. Denies: Diarrhea Genitourinary: Denies: Dysuria Musculoskeletal: Denies: Extremity Pain Skin: Denies: Rash Neurological: Denies: Headache Physical Exam Vital Signs/Narrative: Vital Signs Pulse Resp BP Pulse Ox 10/30/19 01:04 70 16 96 10/29/19 23:14 58 L 14 138/73 H 92 10/29/19 22:13 64 16 146/90 H 93 Inital Vital Signs reviewed: Yes General: Well nourished, Well developed Head: Normocephalic ENT: Moist mucous membranes Neck: Supple Cardiovascular: Regular rate, Regular rhythm Respiratory: No distress, CTA bilaterally, Chest nontender Abdomen: Soft, Nontender Extremities: Nontender Skin: Normal color Neurological: Alert, Oriented x3 Psychological: Normal affect Diagnostic/Tx/Re-eval Impressions Chest X-Ray 10/29/19 21:58 IMPRESSION: No radiographic evidence of acute cardiopulmonary disease. at 2244 Reported and signed by: Avelina Montanez DO Electronically Signed: Avelina Montanez DO at 22:43 EST Tel , Service support , 10/29/19 21:58 Chest 1 View (Portable) [RAD] Stat Laboratory Results 10/29/19 10/29/19 21:16 21:16 WBC 6.9 RBC 4.52 Hgb 14.2 Hct 41.7 MCV 92.3 MCH 31.4 MCHC 34.1 RDW Std Deviation 40.0 RDW Coeff of Sariah 11.9 Plt Count 226 MPV 9.4 Immature Gran % (Auto) 0.300 Neut % (Auto) 45.1 L Lymph % (Auto) 43.7 H [place] % (Auto) 6.7 Eos % (Auto) 3.6 Baso % (Auto) 0.6 Absolute Neuts (auto) 3.1 Absolute Lymphs (auto) 3.02 Nucleated RBC % 0 Sodium 141 Potassium 3.8 Chloride 109 H Carbon Dioxide 29.0 Anion Gap 3 L BUN 12 Creatinine 0.82 Estim Creat Clear Calc 64.01 Est GFR (MDRD) Af Amer 91 Est GFR (MDRD) Non-Af 75 BUN/Creatinine Ratio 14.7 Glucose 91 Calcium 9.7 Total Bilirubin 0.30 Direct Bilirubin 0.12 AST 13 L ALT 15 Alkaline Phosphatase 134 H Troponin I < 0.015 Total Protein 7.1 Albumin 3.3 Globulin 3.8 Lipase 55 L - EKG Initial EKG Interpretation: Sinus Rhythm - Sinus at 75. Anterior T wave inversions that is unchanged when compared to prior study. - Medical Decision Making Patient requested only anxiety medication as she really felt that the symptoms were secondary to her anxiety. She was initially given 0.5 mg of Ativan followed by a dose of Vistaril. Cardiac work-up is unremarkable. Patient does feel improved after the Vistaril. She be given a prescription for short course of Vistaril that she can use at home. She is to follow-up with her specialists as planned if not sooner. She is given return instructions. ED Disposition - Plan for ED Patient: Disposition: Home or Assisted Living Diagnosis: Anxiety Instructions: Anxiety Reaction, CHEST PAIN, NonCardiac Prescriptions: hydrOXYzine pamoate capsule [Vistaril] 25 mg PO TID PRN PRN #30 cap PRN Reason: Anxiety Prescription Printed Referrals: Chucky Martinez MD [Primary Care Provider] - 1 Week
[2019-10-30 01:22] VITALS: BP 143/72; PULSE 81; RESP 18; O2SAT 97
--- NOTE | 2019-10-30 01:23 | ED.RN ---
THIS NURSE REVIEWED D/C INSTRUCTIONS WITH PT. PT VERBALIZED UNDERSTANDING OF INSTRUCTIONS. IV D/C. IV CATHETER INTACT. PT TOLERATED WELL. PT DENIES FURTHER NEEDS OR QUESTIONS AT THIS TIME
== END 2019-10-30 01:24 | disposition home or self-care (01) ==
PROVIDERS: Emergency Provider Emergency Medicine; PCP Family Medicine
DX: F41.9 Anxiety disorder, unspecified (principal); I25.10 Atherosclerotic heart disease of native coronary artery without angina pectoris; I42.9 Cardiomyopathy, unspecified; I25.2 Old myocardial infarction; I10 Essential (primary) hypertension; F32.9 Major depressive disorder, single episode, unspecified; K21.9 Gastro-esophageal reflux disease without esophagitis; E78.5 Hyperlipidemia, unspecified; F17.200 Nicotine dependence, unspecified, uncomplicated; Z79.82 Long term (current) use of aspirin; Z86.73 Personal history of transient ischemic attack (TIA), and cerebral infarction without residual deficits
CPT/HCPCS: 71045; 80048; 80076; 83690; 84484; 85025; 93005; 96361; 96374; 99285; J7030; A4216

== ENCOUNTER 2020-01-09 18:56 | Emergency (ER) | payer MEDICARE, MEDICAID, SELFPAY ==
[2020-01-09 18:57] VITALS: BP 197/109; PULSE 83; RESP 14; O2SAT 99
[2020-01-09 18:58] VITALS: BP 195/114; PULSE 81; RESP 14; TEMP 37.4; O2SAT 99; BMI 27.4
--- NOTE | 2020-01-09 19:16 | EKG12_ITS ---
Test Reason : CP Blood Pressure : / mmHG Vent. Rate : 086 BPM Atrial Rate : 086 BPM P-R Int : 132 ms QRS Dur : 104 ms QT Int : 346 ms P-R-T Axes : 052 035 067 degrees QTc Int : 414 ms Normal sinus rhythm Septal infarct (cited on or before 04-FEB-2019) T wave abnormality, consider anterior ischemia Abnormal ECG Confirmed by DARRELL PATIÑO ([id number]), video editor MARIA DEL ROSARIO ANNE ([id number]) on 01/12/2020 3:07:21 PM Referred By: GISSELLE Confirmed By:DARRELL PATIÑO
[2020-01-09] MEDS: Aspirin 81 MG TAB.CHEW 324 MG PO (19:22)
[2020-01-09 19:24] VITALS: O2SAT 95
[2020-01-09 19:25] VITALS: BP 178/95; PULSE 76
[2020-01-09] MEDS: Nitroglycerin SL (ED/IMG/CATH) 0.4 MG TABLET SUBLINGUAL ×3 (19:25→19:36)
[2020-01-09 19:30] VITALS: BP 160/100; PULSE 82
--- NOTE | 2020-01-09 19:30 | ED.RN ---
PT INITIALLY STATED SHE DOES NOT TAKE ANY HOME MEDICATIONS. AFTER ADDITIONAL QUESTIONS, HOME MED LIST WAS REVIEWED W/PT AND MODIFIED.
--- NOTE | 2020-01-09 19:35 | RAD_ITS ---
STUDY: X-RAY CHEST REASON FOR EXAM: Female, 64 years old. SOB WITH CHEST PAIN TECHNIQUE: Portable chest COMPARISON: 10/29/2019 FINDINGS: The lungs are clear and expanded. There is no demonstrated pleural abnormality. There is no change. Normal size heart. Normal mediastinum and dru. Normal visualized pulmonary arteries. Normal visualized aortic arch and descending thoracic aorta. Normal visualized thoracic spine. Normal visualized ribs, clavicles, and shoulders. There is no demonstrated abnormality of the visualized soft tissue structures of the upper abdomen. RAD/Chest 1 View (Portable) IMPRESSION: Normal x-ray examination of the chest. Electronically Signed: Cordell Castaneda, at 19:55 EDT Tel , Service support ,
[2020-01-09 19:36] VITALS: BP 171/101; PULSE 79
[2020-01-09 19:40] LABS: Absolute Lymphocyte Count 3.77 X10^3/uL (0.83-4.51); Absolute Neutrophil Count 3.6 X10^3/uL (2.0-7.7); Basophil# 0.06 X10^3/uL; Basophil% 0.7 % (0-1); Eosinophil# 0.23 X10^3/uL; Eosinophils% 2.8 % (0-5); Hemoglobin 14.3 g/dL (12.0-15.0); Lymphocyte # 3.77 X10^3/ul (4.0); Lymphocyte % 46.1 % (19-41); Mean Corpuscular Hgb 31.5 pg (27.0-32.0); Mean Corpuscular Volume 92.5 fL (81-99); Mean Platelet Vol. 9.3 fl (6.2-12.0); Monocyte# 0.55 X10^3/uL; Monocyte% 6.7 % (0-10); NRBC Flagged by Analyzer 0 % (0-5); Neutrophil # 3.55 X10^3/uL (2.7-7.7); Neutrophil % 43.5 % (47-70); Platelet Count 237 K/mm3 (150-450); RBC Distribution Width CV 12.8 % (11.6-14.6); RBC Distribution Width SD 43.4 fl (35.1-43.9); Red Blood Count 4.54 M/mm3 (4.2-5.4); White Blood Count 8.2 K/mm3 (4.4-11.0)
[2020-01-09 19:55] LABS: Anion Gap 2 (5-15); BUN 15 mg/dL (7-18); BUN/Creat Ratio 18.1 RATIO (10-20); Calcium,Total 9.7 mg/dL (8.5-10.1); Chloride 109 mmol/L (98-107); Creatinine, Serum 0.83 mg/dL (0.55-1.02); EST Glomerular Filtration Rate 74 mL/min (>60); Est Glom Filt Rate - Afr Amer 89 mL/min (>60); Estimated Creatinine Clearance 64.95 ml/min; Glucose 87 mg/dL (74-106); Potassium 3.7 mmol/L (3.5-5.1); Sodium Level 143 mmol/L (136-145)
--- NOTE | 2020-01-09 20:09 | ED.DCSUM_ITS ---
- ER Visit Summary Date of Service: 01/09/20 Chief Complaint: Chest pain History of Present Illness: The patient is a 64 F with a history of VA, TIA, hypertension, hyperlipidemia, anxiety, depression. She initially would not talk to me in front of the nurses. When they left the room, she said that she has a lot of medical issues, but the main reason she is here is that she is out of her opioids. She was seeing a pain doctor in [place] and was on opioids for 7 years. She was most recently on morphine. She said that her pain doctor stopped her morphine because of the pandemic. When I asked her why they would stop her pain meds, she was talking about people crying in the office because they could not get the pain meds. She said she tried to taper herself off of pain meds and is following with [facility]. She has not had opioids for for 5 days and is having withdrawal symptoms. Physical Examination: Hypertensive but otherwise vitals unremarkable. Alert and oriented. No acute distress. Heart regular. Lungs clear. Abdomen soft. Skin appears normal. Test Results: EKG shows sinus rhythm at a rate of [address] and T wave changes. CBC unremarkable. BMP unremarkable. Troponin normal. Chest x- ray normal. Emergency Department Course and Treatment: Patient treated with aspirin and nitro. She asked for something stronger. She requested a pain shot. I advised her we would try the nitro first. She said that the nitro did not help and that she needed something strong for her bone crushing pain. Her work-up was unremarkable and EKG was nonspecific. Patient has risk factors for coronary disease. I talked to her about admission for this. She did not want to be admitted. She said she was here for a pain shot. I spoke with the clinician at [facility] and they will help coordinate outpatient follow-up with her as the patient does not want to be admitted for chest pain evaluation. She does not require inpatient care for opioid withdrawal. I advised the patient I cannot prescribe nonnarcotics for her, and the patient refused. Patient will be discharged to follow-up as an outpatient. Return for new or worsening issues or for inpatient evaluation of her heart. Repeat blood pressure was 171/101. Treatment Plan: As above Disposition: Discharge Impression: Atypical chest pain Opioid withdrawal This note was generated with [employer] dictation software. It may contain incorrect words, spelling, and punctuation that were not noted in review of the chart prior to signing ED Disposition - Plan for ED Patient: Referrals: Chucky Martinez MD [Primary Care Provider] -
--- NOTE | 2020-01-09 20:15 | ED.DEP ---
ED Disposition - Plan for ED Patient: Instructions: ED Chest Pain NonCardiac Prescriptions: Naproxen [Naprosyn] 500 mg PO BID PRN #20 tab Prescription Printed Ondansetron [Zofran Odt] 4 mg PO Q8H PRN PRN #10 tab PRN Reason: Nausea Prescription Printed Referrals: [facility] [STAFF PHYSICIAN] -
== END 2020-01-09 20:24 | disposition home or self-care (01) ==
LOC: ED 20:19
PROVIDERS: Emergency Provider Emergency Medicine; PCP Family Medicine
DX: R07.89 Other chest pain (principal); F11.23 Opioid dependence with withdrawal; I10 Essential (primary) hypertension; I25.2 Old myocardial infarction; E78.5 Hyperlipidemia, unspecified; K21.9 Gastro-esophageal reflux disease without esophagitis; F41.9 Anxiety disorder, unspecified; Z79.82 Long term (current) use of aspirin; Z72.0 Tobacco use; Z86.73 Personal history of transient ischemic attack (TIA), and cerebral infarction without residual deficits
CPT/HCPCS: 71045; 80048; 84484; 85025; 93005; 99285

== ENCOUNTER 2020-01-13 11:31 | Emergency (ER) | payer MEDICARE, MEDICAID, SELFPAY ==
[2020-01-13 11:32] VITALS: BP 183/91; PULSE 80; RESP 18; TEMP 37.2; O2SAT 99; BMI 24.7
--- NOTE | 2020-01-13 11:53 | RAD_ITS ---
STUDY: X-RAY CHEST REASON FOR EXAM: Female, 64 years old. LUQ PAIN, SEEN PREVIOUSLY FOR SAME TECHNIQUE: Single AP portable view of the chest. COMPARISON: Comparison is made with prior study January 09, 2020. FINDINGS: Hyperinflation. The lungs are clear. There is no demonstrated pleural abnormality. Normal size heart. Normal mediastinum and dru. Normal visualized pulmonary arteries. There is atherosclerotic calcification of the aortic arch with tortuosity. There are degenerative changes of the visualized thoracic spine. Normal visualized ribs, clavicles, and shoulders. There is no demonstrated abnormality of the visualized soft tissue structures of the upper abdomen. RAD/Chest 1 View (Portable) IMPRESSION: Hyperinflation. The lungs are clear. Electronically Signed: Desmond Mojica, at 12:48 EDT , Service support ,
--- NOTE | 2020-01-13 11:59 | ED.VISSUMM ---
- ER Visit Summary Date of Service: 01/13/20 Chief Complaint: Left upper quadrant abdominal pain History of Present Illness: The patient is a 64 F who states she has had 2 weeks of left upper quadrant abdominal pain. She states that sharp and radiates around into her back into her kidney area. Nothing makes it better or worse. She has had nausea with vomiting as well. She denies diarrhea or constipation. No urinary symptoms. She then tells me that she has been dealing with this issue for some time it is only gotten worse over the past 2 weeks. She states she has had an EGD but it did not show anything significant. She has not tried any medicines at home to help with this. Physical Examination: Vital signs reviewed. HEENT exam unremarkable. Heart is regular rate and rhythm without murmurs. Lungs are clear to auscultation. There is no lower chest tenderness. Abdomen is soft and nontender. Extremities reveal no edema. Skin exam normal. Neurologic exam normal. Test Results: Laboratory studies unremarkable except for chloride of 110 and alkaline phosphatase of 142. UA and chest x-ray are unremarkable Emergency Department Course and Treatment: Patient was given a GI cocktail. I am unclear the etiology of her pain. It seems like she has had this for quite some time. At this point I do not feel she needs any further work-up. She needs to follow-up with her outpatient specialist. Treatment Plan: [] Disposition: Discharge Impression: Left Upper quadrant abdominal pain This note was generated with [employer] dictation software. It may contain incorrect words, spelling, and punctuation that were not noted in review of the chart prior to signing ED Disposition - Plan for ED Patient: Disposition: Home or Assisted Living Instructions: ED Abdominal Pain Unkn Cause Fem Referrals: Chucky Martinez MD [Primary Care Provider] -
[2020-01-13] MEDS: Mag Hydrox/Al Hydrox/Simeth 30 ML UDC PO (12:10)
[2020-01-13 12:20] LABS: Absolute Lymphocyte Count 2.88 X10^3/uL (0.83-4.51); Absolute Neutrophil Count 4.2 X10^3/uL (2.0-7.7); Basophil# 0.06 X10^3/uL; Basophil% 0.8 % (0-1); Eosinophils% 2.6 % (0-5); Hematocrit 42.4 % (37-47); Hemoglobin 14.6 g/dL (12.0-15.0); Lymphocyte # 2.88 X10^3/ul (4.0); Lymphocyte % 37.2 % (19-41); Mean Corp Hgb Conc 34.4 g/dL (32-36); Mean Corpuscular Hgb 32.6 pg (27.0-32.0); Mean Corpuscular Volume 94.6 fL (81-99); Monocyte# 0.42 X10^3/uL; Monocyte% 5.4 % (0-10); NRBC Flagged by Analyzer 0 % (0-5); Neutrophil # 4.16 X10^3/uL (2.7-7.7); Neutrophil % 53.6 % (47-70); Platelet Count 226 K/mm3 (150-450); RBC Distribution Width CV 13.2 % (11.6-14.6); RBC Distribution Width SD 45.1 fl (35.1-43.9); Red Blood Count 4.48 M/mm3 (4.2-5.4); White Blood Count 7.8 K/mm3 (4.4-11.0)
[2020-01-13 12:21] LABS: Bacteria 0 SEEN /hpf (None Seen); Mucous, Urine 0 SEEN /hpf (<or=2+); Squamous Epithelial Cells - UA 0 SEEN /hpf (5-10)
[2020-01-13 12:46] LABS: AST(SGOT) 12 U/L (15-37); Alanine Aminotransfer ALT/SGPT 15 U/L (13-56); Albumin, Serum 3.6 g/dL (3.2-5.0); Alkaline Phosphatase 142 U/L (45-117); Anion Gap 6 (5-15); BUN 11 mg/dL (7-18); BUN/Creat Ratio 14.4 RATIO (10-20); Calcium,Total 10.1 mg/dL (8.5-10.1); Chloride 110 mmol/L (98-107); Creatinine, Serum 0.76 mg/dL (0.55-1.02); EST Glomerular Filtration Rate 81 mL/min (>60); Est Glom Filt Rate - Afr Amer 98 mL/min (>60); Estimated Creatinine Clearance 68.18 ml/min; Globulin 3.7 g/dL (2.2-4.2); Glucose 94 mg/dL (74-106); Lipase 153 U/L (73-393); Potassium 3.8 mmol/L (3.5-5.1); Protein, Total 7.3 g/dL (6.4-8.2); Sodium Level 144 mmol/L (136-145)
[2020-01-13 13:04] LABS: Color, Urine Yellow (Yellow); Glucose, Dipstick Normal (Normal); Ketone-Dipstick Negative (Negative); Leukocyte Esterase-Dipstick Negative /ul (Negative); Nitrite-Dipstick Negative (Negative); Occult Blood-Urine 25 /ul (Negative); Protein-Dipstick Negative (Negative); Urine Bilirubin Dipstick Negative (Negative); Urine Clarity Clear (Clear); Urine Urobilinogen Normal (Normal)
[2020-01-13 13:18] LABS: Red Blood Cells-Urine 0-5 SEEN /hpf (0-5); White Blood Cells 0-5 SEEN /hpf (0-5)
== END 2020-01-13 14:04 | disposition home or self-care (01) ==
PROVIDERS: Emergency Provider Emergency Medicine; PCP Family Medicine
DX: R10.12 Left upper quadrant pain (principal); I10 Essential (primary) hypertension; K21.9 Gastro-esophageal reflux disease without esophagitis; F41.9 Anxiety disorder, unspecified; Z79.82 Long term (current) use of aspirin; Z79.899 Other long term (current) drug therapy; Z86.73 Personal history of transient ischemic attack (TIA), and cerebral infarction without residual deficits
CPT/HCPCS: 71045; 80053; 81001; 83690; 85025; 99284; A4216

== ENCOUNTER 2020-01-21 18:45 | Emergency (ER) | payer MEDICARE, MEDICAID, SELFPAY ==
[2020-01-21 18:46] VITALS: BP 153/116; PULSE 59; RESP 20; TEMP 36.9; O2SAT 98; BMI 26.9
--- NOTE | 2020-01-21 18:53 | EKG12_ITS ---
Test Reason : ABDOMINAL PAIN Blood Pressure : / mmHG Vent. Rate : 086 BPM Atrial Rate : 086 BPM P-R Int : 132 ms QRS Dur : 100 ms QT Int : 334 ms P-R-T Axes : 063 038 076 degrees QTc Int : 399 ms Normal sinus rhythm Septal infarct , age undetermined T wave abnormality, consider anterolateral ischemia Abnormal ECG Confirmed by CECI MARTINEZ, GEO ([id number]), food editor LOPEZ VERA ([id number]) on 01/23/2020 12:53:25 PM Referred By: PAUL Confirmed By:GEO ORNELAS MD
--- NOTE | 2020-01-21 18:54 | ED.DCSUM_ITS ---
- ER Visit Summary Date of Service: 01/21/20 Chief Complaint: Abdominal pain History of Present Illness: The patient is a 64 F who states that she has had abdominal pain for multiple weeks. She was seen here on January 12 and had a negative work-up. She followed up with a specialist at the [facility] on January 18. She says she did not get any definitive answers from him regarding this pain. Is on the left side of her abdomen and now radiates into her back, chest and leg on the left-hand side. Nothing seems to make it better or worse. She did not take anything for it at home. She denies a fever. No urinary symptoms. She has felt nauseated. She does have a history of anxiety. Physical Examination: Vital signs reviewed. HEENT exam unremarkable. Heart is regular rate and rhythm without murmurs. Lungs are clear to auscultation. Abdomen is soft with tenderness in the epigastric and left upper quadrant region. Extremities reveal no edema. Skin exam normal. Neurologic exam normal. Test Results: EKG is normal sinus rhythm with a rate of 86. She has inverted lateral T waves. This is unchanged. Laboratory studies are unremarkable. Emergency Department Course and Treatment: Patient was given Toradol and Zofran. She then requested a GI cocktail. She has had this pain for quite some time. Her exam is benign I do not feel she needs any CAT scans or expose any radiation. Patient will be discharged to take Maalox at home. She is going to follow-up with her PCP and her specialists. Treatment Plan: [] Disposition: Discharge Impression: Left side abdominal pain This note was generated with [employer] dictation software. It may contain incorrect words, spelling, and punctuation that were not noted in review of the chart prior to signing ED Disposition - Plan for ED Patient: Disposition: Home or Assisted Living Instructions: ED Abdominal Pain Unkn Cause Fem Referrals: Chucky Martinez MD [Primary Care Provider] -
[2020-01-21] MEDS: Ondansetron 4 MG/2 ML Vial IV (19:26)
[2020-01-21] MEDS: Ketorolac 30 MG/ML Syringe IV (19:26)
[2020-01-21 19:42] LABS: Absolute Lymphocyte Count 3.04 X10^3/uL (0.83-4.51); Absolute Neutrophil Count 4.5 X10^3/uL (2.0-7.7); Basophil# 0.06 X10^3/uL; Basophil% 0.7 % (0-1); Eosinophil# 0.26 X10^3/uL; Eosinophils% 3.1 % (0-5); Hematocrit 42.2 % (37-47); Hemoglobin 14.5 g/dL (12.0-15.0); Lymphocyte # 3.04 X10^3/ul (4.0); Lymphocyte % 35.7 % (19-41); Mean Corp Hgb Conc 34.4 g/dL (32-36); Mean Corpuscular Volume 93.2 fL (81-99); Monocyte# 0.66 X10^3/uL; Monocyte% 7.7 % (0-10); NRBC Flagged by Analyzer 0 % (0-5); Neutrophil # 4.47 X10^3/uL (2.7-7.7); Neutrophil % 52.4 % (47-70); Platelet Count 225 K/mm3 (150-450); RBC Distribution Width CV 12.9 % (11.6-14.6); RBC Distribution Width SD 43.7 fl (35.1-43.9); Red Blood Count 4.53 M/mm3 (4.2-5.4); White Blood Count 8.5 K/mm3 (4.4-11.0)
[2020-01-21 20:05] LABS: ALB/GLOB Ratio 0.9 RATIO (0.9-2.4); AST(SGOT) 12 U/L (15-37); Alanine Aminotransfer ALT/SGPT 14 U/L (13-56); Albumin, Serum 3.5 g/dL (3.2-5.0); Alkaline Phosphatase 138 U/L (45-117); Anion Gap 5 (5-15); BUN 21 mg/dL (7-18); BUN/Creat Ratio 27.1 RATIO (10-20); Calcium,Total 9.9 mg/dL (8.5-10.1); Chloride 109 mmol/L (98-107); Creatinine, Serum 0.78 mg/dL (0.55-1.02); EST Glomerular Filtration Rate 80 mL/min (>60); Est Glom Filt Rate - Afr Amer 97 mL/min (>60); Estimated Creatinine Clearance 69.11 ml/min; Globulin 3.7 g/dL (2.2-4.2); Glucose 103 mg/dL (74-106); Lipase 86 U/L (73-393); Potassium 3.9 mmol/L (3.5-5.1); Protein, Total 7.2 g/dL (6.4-8.2); Sodium Level 142 mmol/L (136-145)
[2020-01-21] MEDS: Mag Hydrox/Al Hydrox/Simeth 30 ML UDC PO (20:47)
[2020-01-21 20:51] VITALS: PULSE 75; RESP 16; O2SAT 97
== END 2020-01-21 20:52 | disposition home or self-care (01) ==
PROVIDERS: Emergency Provider Emergency Medicine; PCP Family Medicine
DX: R10.12 Left upper quadrant pain (principal); R10.13 Epigastric pain; R11.0 Nausea; I10 Essential (primary) hypertension; I25.2 Old myocardial infarction; K21.9 Gastro-esophageal reflux disease without esophagitis; F41.9 Anxiety disorder, unspecified; Z72.0 Tobacco use; Z79.82 Long term (current) use of aspirin; Z79.899 Other long term (current) drug therapy; Z86.73 Personal history of transient ischemic attack (TIA), and cerebral infarction without residual deficits
CPT/HCPCS: 80053; 83690; 84484; 85025; 93005; 96374; 96375; 99285; A4216; J2405

== ENCOUNTER 2020-01-28 00:47 | Emergency (ER) | payer MEDICARE, MEDICAID, SELFPAY ==
[2020-01-28 00:48] VITALS: BP 106/64; PULSE 76; RESP 18; TEMP 36.4; O2SAT 96; BMI 28.6
[2020-01-28 01:05] VITALS: BP 106/64
--- NOTE | 2020-01-28 01:11 | ED.VIS.GEN ---
History of Present Illness Chief Complaint: Fall Informant: Patient Narrative: Stated she has multiple complaints. She stated she lost her balance and tweaked her low back earlier today. No serious injury. She has had issues with chronic pain in the past stated that she takes Percocet. She would like to come off narcotics. She is requesting detox from narcotics at this time. She does not feel like she is going through withdrawal. Sometimes she feels dizzy. Currently she does not. She has chronic problems with her esophagus for which she discussed with me. She has had multiple visits to the emergency department for chest and abdominal pain with negative work-ups recently. In the end after me discussing the patient's case with her she would like to be admitted for detox. She denies any other illicit drug use. - Past Medical History (1) Chest pain Status: Acute (2) Preoperative cardiovascular examination Status: Acute (3) Anxiety and depression Status: Chronic (4) Atherosclerotic heart disease of [place] coronary artery without angina pectoris Status: Chronic Comment: Mild (5) Cardiomyopathy Status: Chronic (6) Essential hypertension Status: Chronic (7) GERD (gastroesophageal reflux disease) Status: Chronic (8) Hyperlipidemia Status: Chronic (9) NSTEMI (non-ST elevated myocardial infarction) Status: Chronic (10) EVELYN (obstructive sleep apnea) Status: Chronic (11) Obesity (BMI 30.0-34.9) Status: Chronic (12) TIA (transient ischemic attack) Status: Chronic (13) Tobacco use Status: Chronic Past Medical History - Allergies and Home Meds Allergies/Adverse Reactions: Allergies No Known Allergies Allergy (Verified 01/13/20 11:41) Primary Care Physician: Chucky Martinez MD [Primary Care Provider] - Surgical History: appendectomy, hysterectomy Smoking Status: Current every day smoker Alcohol: None Drugs: None - Family History Maternal Family History: Family History (Last Reviewed 07/22/18 @ 04:[address] Thor Daniel MD) Mother Hypertension CAD (coronary artery disease) CVA (cerebral vascular accident) Myocardial infarction Grandmother Myocardial infarction Family History: Reports: Heart Disease Paternal Family History: Family History (Last Reviewed 07/22/18 @ 04:[address] Thor Daniel MD) Mother Hypertension CAD (coronary artery disease) CVA (cerebral vascular accident) Myocardial infarction Grandmother Myocardial infarction Family History: Reports: No pertinent history Review of Systems General: Denies: Chills, Fever, Sweats Eyes: Denies: Visual changes - bilaterally, Diplopia ENT: Denies: Rhinorrhea, Sore throat Cardiovascular: Denies: Chest pain, Palpitations Respiratory: Denies: Dyspnea, Cough, Dyspnea on exertion Gastrointestinal: Denies: Abdominal pain, Nausea, Vomiting, Diarrhea, Melena, Hematochezia Genitourinary: Denies: Dysuria, Hematuria, Frequency Musculoskeletal: Reports: Back pain. Denies: Extremity Pain Skin: Denies: Rash, Wounds Neurological: Reports: Weakness. Denies: Headache, Numbness Physical Exam Vital Signs/Narrative: Vital Signs Temp Pulse Resp BP Pulse Ox 01/28/20 01:05 106/64 01/28/20 00:48 97.5 F L 76 18 106/64 96 General: Well nourished, Well developed, No Acute Distress Head: Normocephalic, Atraumatic Eyes: Perrl, EOMI ENT: Moist mucous membranes, No rhinorrhea Neck: Supple, Nontender Cardiovascular: Regular rate, Regular rhythm, No murmurs Respiratory: No distress, CTA bilaterally, Chest nontender Abdomen: Soft, Nontender, Nondistended, Normal bowel sounds Back: Nontender, Normal Inspection Extremities: Nontender, No edema Skin: Normal color, No rash Neurological: Alert, Oriented x3, Cranial nerves II-XII grossly intact, Normal Strength, Normal Sensation Psychological: Normal affect, Normal Mood Diagnostic/Tx/Re-eval - Medical Decision Making Lab work was obtained. Patient will be discussed with detox. Lab work shows nothing acute. Patient has chronic findings in her CBC and BMP. She has a mildly elevated creatinine above baseline. Alkaline phosphatase is elevated but is chronic. Alcohol is negative. Tox is pending. Will be discussed with the hospitalist. The patient would like a detox admission. I discussed this with the hospitalist. He stated she does not meet criteria for detox. And he refused to admit the patient. This is Dr. Daniel. However staff stated that the patient should be able to be admitted in the morning when the new hospitalist arrived. The patient did not want to stay and eloped ED Disposition - Plan for ED Patient: Disposition: Home or Assisted Living Diagnosis: Opiate dependence Referrals: Chucky Martinez MD [Primary Care Provider] -
[2020-01-28 01:56] LABS: Absolute Lymphocyte Count 3.73 X10^3/uL (0.83-4.51); Absolute Neutrophil Count 3.2 X10^3/uL (2.0-7.7); Basophil# 0.06 X10^3/uL; Basophil% 0.8 % (0-1); Eosinophil# 0.24 X10^3/uL; Eosinophils% 3.1 % (0-5); Hematocrit 37.8 % (37-47); Hemoglobin 12.4 g/dL (12.0-15.0); Lymphocyte # 3.73 X10^3/ul (4.0); Lymphocyte % 47.8 % (19-41); Mean Corp Hgb Conc 32.8 g/dL (32-36); Mean Corpuscular Volume 97.4 fL (81-99); Mean Platelet Vol. 9.4 fl (6.2-12.0); Monocyte# 0.56 X10^3/uL; Monocyte% 7.2 % (0-10); NRBC Flagged by Analyzer 0 % (0-5); Neutrophil # 3.19 X10^3/uL (2.7-7.7); Neutrophil % 40.8 % (47-70); Platelet Count 215 K/mm3 (150-450); RBC Distribution Width CV 12.9 % (11.6-14.6); RBC Distribution Width SD 46.1 fl (35.1-43.9); Red Blood Count 3.88 M/mm3 (4.2-5.4); White Blood Count 7.8 K/mm3 (4.4-11.0)
--- NOTE | 2020-01-28 02:12 | ED.RN ---
Pt has refused zofran, wanting Ativan instead. Educated PT that Dr. Eastman will not give Ativan. Pt states she takes it twice a day and missed her dose at 1800 because she was sleeping. PT upset that [facility] is not doing anything. PT states that she has been here several times and we have not fixed her yet. PT needs f/u treatment with [facility], has appointments set up. Dr. Eastman aware of patient wanting to go home and completed discharge instructions.
[2020-01-28 02:13] LABS: ALB/GLOB Ratio 0.9 RATIO (0.9-2.4); AST(SGOT) 14 U/L (15-37); Alanine Aminotransfer ALT/SGPT 15 U/L (13-56); Alcohol, Blood (Medical)-Serum < 3.0 mg/dL; Alkaline Phosphatase 133 U/L (45-117); Anion Gap 1 (5-15); BUN 30 mg/dL (7-18); BUN/Creat Ratio 27.3 RATIO (10-20); Chloride 110 mmol/L (98-107); EST Glomerular Filtration Rate 53 mL/min (>60); Est Glom Filt Rate - Afr Amer 65 mL/min (>60); Globulin 3.4 g/dL (2.2-4.2); Glucose 93 mg/dL (74-106); Potassium 4.2 mmol/L (3.5-5.1); Protein, Total 6.4 g/dL (6.4-8.2); Sodium Level 142 mmol/L (136-145)
[2020-01-28 02:16] LABS: Amphetamine Urine VISTA NEGATIVE (<1000 ng/mL); Barbiturate Urine VISTA NEGATIVE (< 200 ng/mL); Benzodiazepine Urine VISTA POSITIVE (< 200 ng/mL); Cocaine Urine VISTA NEGATIVE (< 300 ng/mL); Ecstacy Urine VISTA NEGATIVE (< 500 ng/mL); Methadone Urine VISTA NEGATIVE (< 300 ng/mL); PCP Urine VISTA NEGATIVE (< 25 ng/mL); THC Urine VISTA NEGATIVE (< 50 ng/mL); Vista UDS pH Range 6
--- NOTE | 2020-01-28 02:42 | ED.RN ---
PT was walking the halls and went to triage to get snacks. PT informed she must stay in room and having mask on. Pt agreed to all detox inpatient rules, form was signed.
--- NOTE | 2020-01-28 03:35 | ED.RN ---
PT found wondering the back jeffers again. I have already redirected patient back into her room 3 additional times. Brought rules and regulation form into patient to remind her that she signed stating she would stay in her room. Informed PT that if she was out of her room again without express knowledge of the nursing staff, she would be discharged AMA. Informed PT that night hospitalist did not want to admit patient stating she could get weaned off medication by her family doctor. Discussed with night nursing electronics processing supervisor and Dr. Eastman that we do admit patients for optiate and benzo substance abuse/withdrawl patients. PT informed that we would try the day hospitalist after 0700. PT asked for pain medication. I informed pt that she could get either Tylenol or Motrin, pt states that doesn't work and Dr. Eastman promised her a morphine shot. Discussed with Dr. Eastman who did offer a morphine shot before patient stated that she wanted to be admitted for detox. PT also wants to speak with Dr. Raiza MD aware. Pending medication orders.
--- NOTE | 2020-01-28 03:49 | ED.RN ---
AT 0320 PT APPROACHES THIS RN AT NURSES STATION REQUESTING NAMES OF STAFF AND MD. PT STATES, I HAVE BEEN HERE FOR HOURS, AND YOU GUYS ARE SO BUSY, WHY ISN'T ANYONE COMING TO HELP ME. I HAVE HAD CHEST PAIN AND ABDOMINAL PAIN. I WANT SOMETHING FOR MY PAIN. THIS RN ASKS PT TO RETURN TO ROOM WHERE NEEDS FOR CHEST PAIN CAN BE ADDRESSED TO WHICH PT REFUSES. PT STANDING IN HALLWAY, LEADING TO ED EXIT. THIS RN CALLS CHARGE NURSE TO ADDRESS PT. DR. ELLIS INFORMED BY THIS RN OF COMPLAINTS OF CHEST AND ABDOMINAL PAIN. PER DR. ELLIS NO EKG AT THIS TIME. PT CONTINUES TO COKE HANDLING SUPERVISOR HALLWAY AND YELL AT THE STAFF. CHARGE NURSE NOTIFIED. CHARGE NURSE AND SECURITY SPEAKING WITH PT.
--- NOTE | 2020-01-28 04:50 | NURSING ---
Security Patrol Officer sent us a call. It was Ms. Mascorro wanting to speak with the MACHINE ASSEMBLER. Nursing ice platform supervisor was aware and call forwarded to her. Nursing ice platform supervisor did come down and speak with patient. Kim informed me that she again educated PT on waiting until 0700 to speak with AM Hospitalist and that she would not be getting any Morphine for her pain. PT was seen in back jeffers by security who redirected her back to her room. PT stated she needed to use the restroom. PT then went into restroom, put water on in the sink and left it running to overflow sink. Security turned off water and placed PT back into her room and stated she was going to notify me of pt wandering the jeffers, which pt knows is unacceptable. PT put call light on and asked financial secretary if there was a different doctor, pt informed no, pt then started yelling that she needed her fucking pain medication. PT was also swearing at [employer], dumb blond, fucking stupid and did you go to school for this job. Toradol injection was ordered by Dr. Eastman. Due to other patient workflow, this RN was delayed in administrating medication. As this RN was going to give injection, I was made aware of PTS negative behavior. PT was now calling [place] Police to report our poor care. PT did not get the toradol injection. PT threw coffee cup filled with coffee in room. Coffee was spilled in triage. EVS made aware. PT was escorted out of hospital by [place] Police and taken home.
== END 2020-01-28 04:45 | disposition left against medical advice (07) ==
PROVIDERS: Emergency Provider Emergency Medicine; PCP Family Medicine
DX: F11.20 Opioid dependence, uncomplicated (principal); F17.200 Nicotine dependence, unspecified, uncomplicated; I25.10 Atherosclerotic heart disease of native coronary artery without angina pectoris; I42.9 Cardiomyopathy, unspecified; I25.2 Old myocardial infarction; I10 Essential (primary) hypertension; E78.5 Hyperlipidemia, unspecified; K21.9 Gastro-esophageal reflux disease without esophagitis; F32.9 Major depressive disorder, single episode, unspecified; F41.9 Anxiety disorder, unspecified; E66.9 Obesity, unspecified; G89.29 Other chronic pain; Z68.28 Body mass index [BMI] 28.0-28.9, adult; Z79.82 Long term (current) use of aspirin; Z79.899 Other long term (current) drug therapy; Z86.73 Personal history of transient ischemic attack (TIA), and cerebral infarction without residual deficits
CPT/HCPCS: 36415; 80053; 80307; 80320; 85025; 99283; G0480

== ENCOUNTER 2020-03-25 16:37 | Emergency (ER) | payer MEDICARE, MEDICAID, SELFPAY ==
[2020-03-25 16:38] VITALS: BP 157/111; PULSE 101; RESP 15; TEMP 36.9; O2SAT 96; BMI 27.4
--- NOTE | 2020-03-25 16:54 | EKG12_ITS ---
Test Reason : SOB Blood Pressure : / mmHG Vent. Rate : 101 BPM Atrial Rate : 101 BPM P-R Int : 130 ms QRS Dur : 098 ms QT Int : 332 ms P-R-T Axes : 067 047 067 degrees QTc Int : 430 ms Sinus tachycardia Septal infarct , age undetermined T wave abnormality, consider anterior ischemia Abnormal ECG Confirmed by CECI MARTINEZ, GEO ([id number]), graphics editor MICAH SALMERON ([id number]) on 03/28/2020 9:05:28 AM Referred By: RU Confirmed By:GEO ORNELAS MD
--- NOTE | 2020-03-25 17:03 | ED.VISSUMM ---
- ER Visit Summary Date of Service: 03/25/20 Chief Complaint: [Cough] History of Present Illness: The patient is a 64 F [presents the emergency department complaint of a cough that she is had for about a week. Patient states that her daughter made her come in. Patient states the cough is mostly nonproductive. She does complain of some shortness of breath with activity. Patient is known to have history of COPD, GERD, hypertension, high cholesterol, obstructive sleep apnea and anxiety. She denies recent travel or surgery. She denies any exposures to known individuals with COVID-19. Patient states that she has been pretty well isolated. She denies any chest pain. She also states that she at one point try to clear ears out and is complaining of pain of the right ear she thinks she injured it. Patient also states that she has had intermittent pains in her abdomen that radiates through to her back when she eats.] Physical Examination: [HEENT-PERRLA, EOMI. Cranial nerves II through XII grossly intact. TMs clear. Mucous membranes moist. No adenopathy. Patient has abrasion to the right ear canal with some dried blood noted. No evidence of trauma to the eardrum noted. Cardiovascular-regular rate and rhythm without murmur or ectopy Lungs-patient has a moist on and cough. Patient has coarse breath sounds bilaterally with some rhonchi noted and some pain expiratory wheezes bilaterally. No significant tachypnea. No accessory muscle use or retractions. Abdomen-normoactive bowel sounds, soft, nontender, no rebound or rigidity, no peritoneal signs. Extremities-intact ?4, normal range of motion, normal pulses, atraumatic] Test Results: [EKG obtained arrival shows sinus rhythm with a ventricular rate of 101 bpm with old septal infarct and nonspecific ST changes noted. When compared with prior EKG no significant changes noted. CBC with differential showed a white count 6.3, hemoglobin 14.2, hematocrit 42, placed 259. Chemistries unremarkable. LFTs normal. Lipase was 66. Troponin less than 0.015. COVID test was negative. Chest x-ray showed nothing acute.] Emergency Department Course and Treatment: [Patient given albuterol MDI 4 puffs while in the department and prednisone 40 mg p.o. Patient was started on doxycycline. Patient was given Tessalon Perles. She was given Cortisporin otic for the right ear abrasion.] Treatment Plan: [Patient will be discharged home with advised to follow-up with primary care physician in 3 to 5 days.] Disposition: [Discharged home in stable condition] Impression: [Asthmatic bronchitis Abrasion right ear canal] This note was generated with [employer] dictation software. It may contain incorrect words, spelling, and punctuation that were not noted in review of the chart prior to signing ED Disposition - Plan for ED Patient: Referrals: Chucky Martinez MD [Primary Care Provider] -
[2020-03-25] MEDS: predniSONE 20 MG Tablet 40 MG PO (17:14)
[2020-03-25 17:41] LABS: Absolute Lymphocyte Count 2.58 X10^3/uL (0.83-4.51); Basophil# 0.05 X10^3/uL; Basophil% 0.8 % (0-1); Eosinophil# 0.23 X10^3/uL; Eosinophils% 3.7 % (0-5); Hemoglobin 14.2 g/dL (12.0-15.0); Lymphocyte # 2.58 X10^3/ul (4.0); Mean Corp Hgb Conc 33.8 g/dL (32-36); Mean Corpuscular Hgb 32.2 pg (27.0-32.0); Mean Corpuscular Volume 95.2 fL (81-99); Mean Platelet Vol. 9.3 fl (6.2-12.0); Monocyte# 0.47 X10^3/uL; Monocyte% 7.5 % (0-10); NRBC Flagged by Analyzer 0 % (0-5); Neutrophil # 2.95 X10^3/uL (2.7-7.7); Neutrophil % 46.7 % (47-70); Platelet Count 254 K/mm3 (150-450); RBC Distribution Width CV 12.1 % (11.6-14.6); RBC Distribution Width SD 42.2 fl (35.1-43.9); Red Blood Count 4.41 M/mm3 (4.2-5.4); White Blood Count 6.3 K/mm3 (4.4-11.0)
--- NOTE | 2020-03-25 17:48 | RAD_ITS ---
STUDY: X-RAY CHEST REASON FOR EXAM: Female, 64 years old. Cough, SOB, nausea, fatigue TECHNIQUE: Single frontal view of the chest. COMPARISON: January 13, 2020 FINDINGS: There is no new focal consolidation. Normal size heart. Normal mediastinum and dru. Normal visualized pulmonary arteries. Normal visualized aortic arch and descending thoracic aorta. Normal visualized thoracic spine. Normal visualized ribs, clavicles, and shoulders. There is no demonstrated abnormality of the visualized soft tissue structures of the upper abdomen. RAD/Chest 1 View (Portable) IMPRESSION: No acute cardiopulmonary process. Electronically Signed: Hue Lakhani MD at 18:16 EDT Tel , Service support ,
[2020-03-25 17:56] VITALS: PULSE 95; RESP 18
[2020-03-25 17:57] LABS: AST(SGOT) 14 U/L (15-37); Alanine Aminotransfer ALT/SGPT 13 U/L (13-56); Albumin, Serum 3.7 g/dL (3.2-5.0); Alkaline Phosphatase 211 U/L (45-117); Anion Gap 6 (5-15); BUN 14 mg/dL (7-18); BUN/Creat Ratio 18.1 RATIO (10-20); Bilirubin, Direct 0.11 mg/dL (0.00-0.30); Calcium,Total 10.1 mg/dL (8.5-10.1); Chloride 110 mmol/L (98-107); Creatinine, Serum 0.78 mg/dL (0.55-1.02); EST Glomerular Filtration Rate 80 mL/min (>60); Est Glom Filt Rate - Afr Amer 97 mL/min (>60); Estimated Creatinine Clearance 69.11 ml/min; Glucose 105 mg/dL (74-106); Lipase 66 U/L (73-393); Potassium 3.7 mmol/L (3.5-5.1); Protein, Total 7.7 g/dL (6.4-8.2); Sodium Level 144 mmol/L (136-145)
[2020-03-25] MEDS: LORazepam 2 MG/ML Syringe 1 MG IV (18:10)
[2020-03-25 18:46] LABS: Probe Check PASS; Specimen Processing Control PASS
--- NOTE | 2020-03-25 18:54 | ED.DEP ---
ED Disposition - Plan for ED Patient: Instructions: ED Bronchitis Asthmatic Prescriptions: Prednisone [Deltasone] 20 mg PO BID #10 tab Prescription Printed Doxycycline 100 mg PO BID #20 cap Prescription Printed Benzonatate [Tessalon Perle] 200 mg PO TID PRN PRN #20 cap PRN Reason: Cough Prescription Printed Referrals: Chucky Martinez MD [Primary Care Provider] - 5-7 Days
[2020-03-25] MEDS: Doxycycline 100 MG CAPSULE PO (19:13)
[2020-03-25] MEDS: Benzonatate 100 MG Capsule PO (19:13)
[2020-03-25 19:16] VITALS: BP 150/93; PULSE 80; RESP 18; TEMP 35.5
[2020-03-25] MEDS: Neomycin Sulfate/Polymyxin/Hc Susp 10 ML Bottle 4 DRP OTIC (19:20)
== END 2020-03-25 19:20 | disposition home or self-care (01) ==
LOC: ED 17:30
PROVIDERS: Emergency Provider Emergency Medicine; PCP Family Medicine
DX: J44.9 Chronic obstructive pulmonary disease, unspecified (principal); S00.411A Abrasion of right ear, initial encounter; X58.XXXA Exposure to other specified factors, initial encounter; Y93.89 Activity, other specified; Y92.9 Unspecified place or not applicable; I10 Essential (primary) hypertension; K21.9 Gastro-esophageal reflux disease without esophagitis; E78.00 Pure hypercholesterolemia, unspecified; G47.33 Obstructive sleep apnea (adult) (pediatric); F41.9 Anxiety disorder, unspecified; Z79.82 Long term (current) use of aspirin; Z79.899 Other long term (current) drug therapy; Z72.0 Tobacco use
CPT/HCPCS: 71045; 80048; 80076; 83690; 84484; 85025; 87040; 87635; 93005; 94640; 96374; 99285; C9803; G2023; A4216; U0003

== ENCOUNTER 2020-06-03 11:15 | Inpatient (IN) | payer MEDICARE, MEDICAID, SELFPAY ==
[2020-06-03 11:15] VITALS: BMI 27.3
[2020-06-03 11:17] VITALS: BP 150/107; PULSE 83; RESP 18; TEMP 36.4; O2SAT 97; BMI 26.5
--- NOTE | 2020-06-03 11:43 | ED.VISSUMM ---
- ER Visit Summary Date of Service: 06/03/20 Chief Complaint: Abdominal pain, right ear pain, and detox History of Present Illness: The patient is a 64 F who presents with abdominal pain for the past several months. Patient states that when she swallows it feels like there are razor blades in her esophagus. Patient states the pain is over the epigastric area. Patient states she has been placed on everything with no improvement. Patient states her pain is worse with eating and drinking. Patient states that because of the severe pain she started using street drugs. Patient states she has been snorting fentanyl for the past 2 months. Patient is requesting detox from fentanyl. Patient states she only uses a small amount of fentanyl. Patient states her last use was last night. Patient has no prior history of detox. Patient has no prior history of drug abuse. Patient denies any suicidal homicidal ideations. Patient also thinks she has an ear infection in her right ear. Patient states she has been having decreased hearing from her right ear. Patient denies any fevers or chills. Physical Examination: Vital signs are stable. Patient is afebrile. Patient is in no acute distress. The right external auditory canal is edematous and erythematous. The left external auditory canal is relatively clear. The left tympanic membrane is clear. There is cerumen noted bilaterally. Oral mucosa is pink and moist. Neck is supple. Trachea is midline. There is no JVD. Heart was regular rate and rhythm. Lungs are clear and equal bilaterally. Abdomen is soft. Bowel sounds are normal. There is epigastric tenderness. There is no rebound or guarding noted. Extremities are intact. There is no calf tenderness or edema. Cranial nerves II through XII are intact. There are no focal motor or sensory deficits noted. Patient was tearful on exam. Patient denies any suicidal or homicidal ideations. Test Results: CBC was normal. Comprehensive metabolic profile was essentially within normal limits. Lipase was normal. Urinalysis was obtained and was within normal limits. Urine tox urine was negative. Serum alcohol level was ordered and is normal. Emergency Department Course and Treatment: Patient was given a GI cocktail. Patient felt better on reevaluation. Patient was given Cortisporin otic suspension for her right ear. Patient was advised of her findings. Case was discussed with the hospitalist. She will admit the patient to her service. Patient understood and was agreeable with the plan. All questions were answered. Disposition: Admit to hospital Impression: 1. Opiate dependence 2. Right otitis externa This note was generated with [employer] dictation software. It may contain incorrect words, spelling, and punctuation that were not noted in review of the chart prior to signing ED Disposition - Plan for ED Patient: Disposition: Acute Care Hospital [facility] Diagnosis: Opiate dependence, Right otitis externa
[2020-06-03] MEDS: Mag Hydrox/Al Hydrox/Simeth 30 ML UDC PO (12:29)
[2020-06-03 12:31] LABS: Color, Urine Yellow (Yellow); Glucose, Dipstick Normal (Normal); Ketone-Dipstick Negative (Negative); Leukocyte Esterase-Dipstick Negative /ul (Negative); Nitrite-Dipstick Negative (Negative); Occult Blood-Urine 25 /ul (Negative); Protein-Dipstick Negative (Negative); Urine Bilirubin Dipstick Negative (Negative); Urine Clarity Sl. Cloudy (Clear); Urine Urobilinogen Normal (Normal)
[2020-06-03 12:31] LABS: Absolute Lymphocyte Count 2.48 X10^3/uL (0.83-4.51); Absolute Neutrophil Count 3.3 X10^3/uL (2.0-7.7); Basophil# 0.07 X10^3/uL; Basophil% 1.1 % (0-1); Eosinophil# 0.23 X10^3/uL; Eosinophils% 3.5 % (0-5); Hematocrit 40.3 % (37-47); Hemoglobin 13.3 g/dL (12.0-15.0); Lymphocyte # 2.48 X10^3/ul (4.0); Lymphocyte % 37.7 % (19-41); Mean Corpuscular Hgb 31.9 pg (27.0-32.0); Mean Corpuscular Volume 96.6 fL (81-99); Mean Platelet Vol. 9.2 fl (6.2-12.0); Monocyte# 0.47 X10^3/uL; Monocyte% 7.1 % (0-10); NRBC Flagged by Analyzer 0 % (0-5); Neutrophil # 3.31 X10^3/uL (2.7-7.7); Neutrophil % 50.3 % (47-70); Platelet Count 237 K/mm3 (150-450); RBC Distribution Width CV 12.9 % (11.6-14.6); RBC Distribution Width SD 45.6 fl (35.1-43.9); Red Blood Count 4.17 M/mm3 (4.2-5.4); White Blood Count 6.6 K/mm3 (4.4-11.0)
[2020-06-03 12:32] LABS: Mucous, Urine 0 SEEN /hpf (<or=2+); Red Blood Cells-Urine 0 SEEN /hpf (0-5); Squamous Epithelial Cells - UA 0 SEEN /hpf (5-10); White Blood Cells 0 SEEN /hpf (0-5)
[2020-06-03 12:38] LABS: Bacteria RARE /hpf (None Seen)
[2020-06-03 12:41] LABS: Amphetamine Urine VISTA NEGATIVE (<1000 ng/mL); Barbiturate Urine VISTA NEGATIVE (< 200 ng/mL); Benzodiazepine Urine VISTA NEGATIVE (< 200 ng/mL); Cocaine Urine VISTA NEGATIVE (< 300 ng/mL); Ecstacy Urine VISTA NEGATIVE (< 500 ng/mL); Methadone Urine VISTA NEGATIVE (< 300 ng/mL); PCP Urine VISTA NEGATIVE (< 25 ng/mL); THC Urine VISTA NEGATIVE (< 50 ng/mL); Vista UDS pH Range 6
[2020-06-03 12:48] LABS: ALB/GLOB Ratio 0.9 RATIO (0.9-2.4); AST(SGOT) 20 U/L (15-37); Alanine Aminotransfer ALT/SGPT 14 U/L (13-56); Albumin, Serum 3.3 g/dL (3.2-5.0); Alkaline Phosphatase 147 U/L (45-117); Anion Gap 2 (5-15); BUN 12 mg/dL (7-18); BUN/Creat Ratio 14.1 RATIO (10-20); Calcium,Total 9.8 mg/dL (8.5-10.1); Chloride 109 mmol/L (98-107); Creatinine, Serum 0.85 mg/dL (0.55-1.02); EST Glomerular Filtration Rate 72 mL/min (>60); Est Glom Filt Rate - Afr Amer 87 mL/min (>60); Estimated Creatinine Clearance 60.96 ml/min; Globulin 3.7 g/dL (2.2-4.2); Glucose 92 mg/dL (74-106); Lipase 61 U/L (73-393); Potassium 3.7 mmol/L (3.5-5.1); Sodium Level 143 mmol/L (136-145)
[2020-06-03 13:06] LABS: Alcohol, Blood (Medical)-Serum < 3.0 mg/dL
--- NOTE | 2020-06-03 13:52 | NURSING ---
MED SURG WHITE OPIATE DEPENDENCE
--- NOTE | 2020-06-03 14:06 | PCM.HP.STD ---
Problem List (1) Opiate withdrawal Status: Acute (2) Opiate dependence Status: Acute Qualifiers: Substance use status: with unspecified opioid-induced disorder Qualified Code(s): F11.29 - Opioid dependence with unspecified opioid-induced disorder (3) Right otitis externa Status: Acute Qualifiers: Otitis externa type: unspecified type Chronicity: acute Qualified Code(s): H60.501 - Unspecified acute noninfective otitis externa, right ear (4) Essential hypertension Status: Chronic (5) Tobacco use Status: Chronic (6) GERD (gastroesophageal reflux disease) Status: Chronic Qualifiers: Esophagitis presence: esophagitis presence not specified Qualified Code(s): K21.9 - Gastro-esophageal reflux disease without esophagitis (7) Anxiety and depression Status: Chronic (8) NSTEMI (non-ST elevated myocardial infarction) Status: Chronic (9) Cardiomyopathy Status: Chronic Qualifiers: Cardiomyopathy type: unspecified Qualified Code(s): I42.9 - Cardiomyopathy, unspecified (10) Hyperlipidemia Status: Chronic Qualifiers: Hyperlipidemia type: unspecified Qualified Code(s): E78.5 - Hyperlipidemia, unspecified (11) Atherosclerotic heart disease of [place] coronary artery without angina pectoris Status: Chronic Qualifiers: [place] vs. transplanted heart: unspecified whether [place] or transplanted heart Qualified Code(s): I25.10 - Atherosclerotic heart disease of [place] coronary artery without angina pectoris Comment: Mild History of Present Illness Date of Admission: 06/03/20 Chief Complaint: Acute Opiate Withdrawal The patient is a 64 y/o F w/ PMHx: CAD without PCI/Hx [place], Cardiomyopathy unclear type, HTN, HLD, Chronic COPD, Tobacco use, GERD, Chronic abdominal pain, Polysubstance abuse (Currently snorting fentanyl, unclear amount per her but daily, last evening prior to ED presentation) who presents to the [facility] ED on 06/03/20, a frequent ED visitor with chronic pain complaints w/ noted opiate withdrawal onset starting 06/03/20 late afternoon following last dose as noted evening prior with abdominal pain/cramping, generalized body aches and pains, rhinorrhea, fatigue, restless leg, sweating, yawning. She notes she is embarrassed about her substance abuse. She notes she has had issues with ongoing abdominal pain and it led her to use fentanyl. Patient interested in attaining clean status. Patient incidentally noted right ear discomfort with confirmation of right otitis externa while in the ED with initiation of Otocort suspension drops. Work-up in the ED included T 98.6, heart rate 83, BP 150/107, respiratory rate 18, 97% on room air, CBC with WBC 6.6, hemoglobin 13.3, platelet 237 without market shift, CMP with chloride 109, alk phos 147 otherwise unremarkable, drug screen negative, ethyl alcohol less than 3. ED patient ministered GI cocktail, Mylanta as well as otic drops for ED suspected acute right otitis externa. Past Medical History Past Medical History (Chronic Problems): Chronic Problems (Last Updated 12/27/18 @ 16:34 by Delilah Benavides) Essential hypertension (Chronic) Tobacco use (Chronic) EVELYN (obstructive sleep apnea) (Chronic) Obesity (BMI 30.0-34.9) (Chronic) TIA (transient ischemic attack) (Chronic) GERD (gastroesophageal reflux disease) (Chronic) Anxiety and depression (Chronic) NSTEMI (non-ST elevated myocardial infarction) (Chronic) Cardiomyopathy (Chronic) Hyperlipidemia (Chronic) Atherosclerotic heart disease of [place] coronary artery without angina pectoris (Chronic) Mild Medical History: Medical History (Last Updated 12/27/18 @ 16:34 by Delilah Benavides) Essential hypertension (Chronic) I10 Cardiomyopathy (Chronic) I42.9 Hyperlipidemia (Chronic) E78.5 Atherosclerotic heart disease of [place] coronary artery without angina pectoris (Chronic) I25.10 Mild COPD (chronic obstructive pulmonary disease) J44.9 Calculus of left kidney N20.0 GERD (gastroesophageal reflux disease) K21.9 Personal history of transient ischemic attack (TIA), and cerebral infarction without residual deficits Z86.73 Tobacco abuse Z72.0 Hypertension (Inactive) I10 Allergies No Known Allergies Allergy (Verified 06/03/20 11:20) Home Medications: Ambulatory Orders Medication Instructions Recorded Lisinopril [Zestril] 10 mg PO BID 11/18/15 Aspirin E.C. [Ecotrin] 81 mg PO DAILY 07/21/18 Omeprazole [Prilosec] 40 mg PO DAILY 12/24/18 proMETHazine tablet [Phenergan 25 mg PO Q4H PRN PRN #20 tab 12/24/18 tablet] Lorazepam [Ativan] 1 mg PO TID PRN #15 tab 04/05/19 carvedilol 12.5 mg tablet 12.5 mg PO BID #60 tab 06/29/19 Ondansetron [Zofran Odt] 4 mg PO Q8H PRN PRN #10 tab 01/09/20 Surgical History: Surgical History (Last Reviewed 07/21/18 @ 20:[address] Thor Daniel MD) History of total hysterectomy Z90.710 Hx of appendectomy Z90.49 Surgical History: appendectomy, hysterectomy Psychiatric History: Anxiety, Depression LOG CHECK SCALER History: No pertinent LOG CHECK SCALER history Lives: With Family - Patient notes that currently her grandson is living with her. She notes that her grandson does not have a history of substance abuse nor alcohol abuse. Smoking Status: Current every day smoker - Patient with ongoing 1/2 pack/day cigarette tobacco usage. Tobacco Use: Cigarettes Alcohol: None Drugs: - - Ongoing snorted fentanyl, unclear usage but daily. - *Family History Maternal Family History: Family History (Last Reviewed 07/22/18 @ 04:[address] Thor Daniel MD) Mother Hypertension CAD (coronary artery disease) CVA (cerebral vascular accident) Myocardial infarction Grandmother Myocardial infarction History Items: High Cholesterol, Heart Disease, Hypertension, Stroke Paternal Family History: Family History (Last Reviewed 07/22/18 @ 04:[address] Thor Daniel MD) Mother Hypertension CAD (coronary artery disease) CVA (cerebral vascular accident) Myocardial infarction Grandmother Myocardial infarction History Items: - - Patient states she does not know any of her father's history. Review of Systems Constitutional: Reports: Anorexia, Malaise, Weakness, Fatigue. Denies: Chills, Fever, Weight Change HEENT: Reports: Nasal Congestion, Sinus Congestion, Sinus Drainage. Denies: Head Aches Cardiovascular: Denies: Chest Pain, Palpitations Respiratory: Reports: Cough. Denies: Shortness of Breath, Shortness of breath at rest, Shortness of breath upon exertion, Sputum production, Wheezing Gastrointestinal: Reports: Abdominal Pain, Nausea. Denies: Vomiting Genitourinary: Denies: Dysuria Musculoskeletal: Reports: Back Pain, Joint Pain. Denies: Joint Tenderness Skin: Denies: Rash, Wounds Neurological: Denies: Numbness, Tingling, Focal weakness Psychiatric: Reports: Anxiety, Depression. Denies: Homicidal Ideations, Suicidal Ideations Hematologic/ Lymphatic: Reports: Easy Bruising, Easy Bleeding VTE Information - Inpt Only VTE Present on Admission: No VTE Mechan Device Prophylaxis: SCD's VTE Pharm Prophylaxis ordered?: Yes Patient Problems: Active and Suspected Problems (Last Updated 12/27/18 @ 16:34 by Delilah Benavides) Opiate dependence (Acute) Right otitis externa (Acute) Opiate withdrawal (Acute) Subjective: Seated upright in ED bed, fatigued appearing, yawning, mildly restless, moving legs frequently. Objective: Physical Examination: General: awake, alert, oriented x 3 and cooperative, seated upright in the ED bed, fatigued yet restless, notes ongoing abdominal discomfort, cramping. Skin: normal color, turgor, no icterus, cyanosis. HEENT: AT/NC, EOMI, PERRLA, dry MM, no carotid bruits or JVD noted, R external canal erythematous. Lungs: Diminished breath sounds, greater bases, no rales, ronchi or wheezing. Heart: Currently regular rate and rhythm; no gallop, rub audible. Abdomen: soft, generalized discomfort with palpation, ND, mildly hyperactive BS, no HSM. Extremities: no cyanosis, clubbing, or edema. Neurological: patient awake, alert, oriented x 3; cognitive function intact; pupils equally reactive to light and accomodation; cranial nerves II-XII grossly normal, moving all 4 extremities, no focal deficits, strength moderately globally decreased secondary to acute presentation, extremely restless. Psychiatric: affect appears fatigued yet restless, comparable appearing, no acute evidence of depressive or anxiety feelings. - Physical Exam Vitals/I&O's: Vital Signs Temp Pulse Resp BP Pulse Ox 97.5 F L 83 18 150/107 H 97 06/03/20 11:17 06/03/20 11:17 06/03/20 11:17 06/03/20 11:17 06/03/20 11:17 Oxygen Delivery Method Room Air Weight: 159 lb 9.835 oz Body Mass Index (BMI) 26.5 Finger Stick Blood Glucose 76 Laboratory Results 06/03/20 12:10: Urine Opiates Screen NEGATIVE, Urine Methadone Screen NEGATIVE, Ur Barbiturates Screen NEGATIVE, Ur Phencyclidine Scrn NEGATIVE, Ur Amphetamines Screen NEGATIVE, U Methamphetamin-MDMA NEGATIVE, U Benzodiazepines Scrn NEGATIVE, Urine Cocaine Screen NEGATIVE, U Cannabinoids Screen NEGATIVE, Ur Drug Screen Comment 06/03/20 12:10: Urine Color Yellow, Urine Clarity Sl. Cloudy, Urine pH 6.0, Ur Specific [place] 1.010, Urine Protein Negative, Urine Glucose (UA) Normal, Urine Ketones Negative, Urine Occult Blood 25 H, Urine Nitrite Negative, Urine Bilirubin Negative, Urine Urobilinogen Normal, Ur Leukocyte Esterase Negative, Urine RBC 0 SEEN, Urine WBC 0 SEEN, Ur Squamous Epith Cells 0 SEEN, Urine Bacteria RARE, Urine Mucus 0 SEEN 06/03/20 12:20: WBC 6.6, RBC 4.17 L, Hgb 13.3, Hct 40.3, MCV 96.6, MCH 31.9, MCHC 33.0, RDW Std Deviation 45.6 H, RDW Coeff of Saria[place] 12.9, Plt Count 237, MPV 9.2, Immature Gran % (Auto) 0.300, Neut % (Auto) 50.3, Lymph % (Auto) 37.7, [place] % (Auto) 7.1, Eos % (Auto) 3.5, Baso % (Auto) 1.1 H, Absolute Neuts (auto) 3.3, Absolute Lymphs (auto) 2.48, Nucleated RBC % 0 06/03/20 12:20: Sodium 143, Potassium 3.7, Chloride 109 H, Carbon Dioxide 32.0, Anion Gap 2 L, BUN 12, Creatinine 0.85, Estim Creat Clear Calc 60.96, Est GFR (MDRD) Af Amer 87, Est GFR (MDRD) Non-Af 72, BUN/Creatinine Ratio 14.1, Glucose 92, Calcium 9.8, Total Bilirubin 0.40, AST 20, ALT 14, Alkaline Phosphatase 147 H, Total Protein 7.0, Albumin 3.3, Globulin 3.7, Albumin/Globulin Ratio 0.9, Lipase 61 L 06/03/20 12:20: Ethyl Alcohol < 3.0 Current Medications Neomycin/Polymyxin/Hydrocortisone (Otocort Susp (Bkc)) 4 drop OTIC 4X/DAY [facility] Assessment/Plan All Active Problems (Last Updated 12/27/18 @ 16:34 by Delilah Benavides) Opiate dependence (Acute) Right otitis externa (Acute) Opiate withdrawal (Acute) Preoperative cardiovascular examination (Acute) Chest pain (Acute) The patient is a 64 y/o F w/ PMHx: CAD without PCI/Hx [place], Cardiomyopathy unclear type, HTN, HLD, Chronic COPD, Tobacco use, GERD, Chronic abdominal pain, Polysubstance abuse (Currently snorting fentanyl, unclear amount per her but daily, last evening prior to ED presentation) who presents to the [facility] ED on 06/03/20, a frequent ED visitor with chronic pain complaints w/ noted opiate withdrawal. 1. Acute Opiate Withdrawal secondary to underlying history of chronic abdominal pain: Will admit to [facility], routine labs including CBC, CMP, urine for drug screen obtained in the ED, will initiate and continue on protocol with tapering course of Subutex, as needed tylenol, ibuprofen, bowel regimen, gabapentin, Bentyl, Vistaril, methocarbamol, clonidine, PRN nightly trazodone for insomnia, IV fluids, IV antiemetics. Once patient clinically improved and completion of taper nearing will plan consultation with case management for transition to next level of rehabilitation care. 2. CAD: Status post cardiac catheterization with no specific PCI needs, history [place], will continue aspirin, Coreg, lisinopril, not on statin therapy, defer to outpatient. 3. Hypertension: Continue home regimen including Coreg, lisinopril with hold parameters. 4. Hyperlipidemia: Continue home statin regimen. 5. Cardiomyopathy, unclear type: Likely associated with prior [place], underlying cardiac disease, will continue aspirin, Coreg, lisinopril, not on statin therapy, defer to outpatient. 6. Chronic COPD: We will maintain on ATC duonebs, PRN albuterol, HOB, IS parameters. 7. Acute right otitis externa: We will continue ED initiated drops. 8. Tobacco Abuse: Encouraged cessation, inpatient consultation per RT, NR if desired. 9. Anxiety and depression: We will continue patient home PRN Ativan regimen, not on any SSRI versus SNRI, will need outpatient aggressive follow-up for her psychiatric conditions is likely contributing to her alcohol intake. 10. GERD: We will continue PPI. 11. DVT prophylaxis: SCDsLeon. Inpatient E&M: 19810 Init Hosp L3
[2020-06-03 14:10] VITALS: BP 164/89; PULSE 64; RESP 16; TEMP 37; O2SAT 95
[2020-06-03 15:44] VITALS: BMI 26.5; BMI 26.6
[2020-06-03 15:55] LABS: Magnesium 2.2 mg/dL (1.6-2.6)
[2020-06-03 16:02] VITALS: BP 143/71; PULSE 74; RESP 16; TEMP 36.9; O2SAT 98
[2020-06-03] MEDS: Lactated Ringers 1,000 ML 125 ML IV (16:43)
[2020-06-03] MEDS: LORazepam 1 MG Tablet PO (16:54)
[2020-06-03 17:05] VITALS: PULSE 73; RESP 17; O2SAT 96
[2020-06-03] MEDS: Ipratropium/Albuterol Sulfate 3 ML AMPUL.NEB INHALATION ×2 (17:05→19:08)
[2020-06-03] MEDS: Ondansetron 8 MG Tablet PO (17:40)
[2020-06-03] MEDS: Buprenorphine HCl 2 MG TAB.SUBL SL (17:40)
[2020-06-03] MEDS: Dicyclomine 10 MG Capsule 20 MG PO (17:41)
[2020-06-03] MEDS: hydrOXYzine PAM 25 MG Capsule 50 MG PO (17:41)
[2020-06-03 19:08] VITALS: PULSE 80; RESP 16
[2020-06-03 21:33] VITALS: BP 115/56; PULSE 65; RESP 16; TEMP 37.2; O2SAT 92
[2020-06-03] MEDS: APIXABAN 2.5 MG TABLET PO (21:52)
[2020-06-03] MEDS: Carvedilol 12.5 MG Tablet PO (21:52)
[2020-06-03] MEDS: Methocarbamol 750 MG Tablet 1500 MG PO (21:52)
[2020-06-03] MEDS: Lisinopril 10 MG Tablet PO (21:52)
[2020-06-03] MEDS: Neomycin Sulfate/Polymyxin/Hc Susp 10 ML Bottle 4 DRP OTIC (21:58)
[2020-06-04] VITALS (8 sets, daily range): BP systolic 117–156; BP diastolic 60–82; PULSE 59–70; RESP 14–18; TEMP 36.1–36.8; O2SAT 93–95
[2020-06-04] MEDS: Buprenorphine HCl 2 MG TAB.SUBL SL ×3 (01:15→17:55)
[2020-06-04] MEDS: Senna Tablet 2 TABLET PO (05:18)
[2020-06-04] MEDS: LORazepam 1 MG Tablet PO ×2 (05:18→14:10)
[2020-06-04] MEDS: Dicyclomine 10 MG Capsule 20 MG PO ×3 (05:18→20:59)
[2020-06-04] MEDS: Carvedilol 12.5 MG Tablet PO ×2 (09:33→21:00)
[2020-06-04] MEDS: APIXABAN 2.5 MG TABLET PO ×2 (09:33→21:00)
[2020-06-04] MEDS: Pantoprazole Sodium 40 MG Tablet PO (09:33)
[2020-06-04] MEDS: Lisinopril 10 MG Tablet PO ×2 (09:33→21:01)
[2020-06-04] MEDS: Aspirin E.C. 81 MG Tablet PO (09:33)
--- NOTE | 2020-06-04 09:33 | CASEMGMT ---
Social Work Note Pt is RAMP pt. [facility] left [facility] that pt will need to be seen. Cande Alba BURSAR, TELESALES SUPERVISOR
[2020-06-04] MEDS: Neomycin Sulfate/Polymyxin/Hc Susp 10 ML Bottle 4 DRP OTIC ×4 (09:34→21:00)
--- NOTE | 2020-06-04 11:38 | PN_ITS ---
Patient Problems: Active and Suspected Problems (Last Updated 12/27/18 @ 16:34 by Delilah Benavides) Opiate dependence (Acute) Right otitis externa (Acute) Opiate withdrawal (Acute) Reason for Visit: opiate withdrawal Subjective: No new complaints. Vitals/I&O's: Vital Signs Temp Pulse Resp BP Pulse Ox 36.6 C 65 16 117/66 95 06/04/20 09:42 06/04/20 09:42 06/04/20 09:42 06/04/20 09:42 06/04/20 09:42 Oxygen Delivery Method Room Air Weight: 72.4 kg Body Mass Index (BMI) 26.5 Finger Stick Blood Glucose 76 Intake and Output for Last 24 Hours 06/02/20 06/03/20 06/04/20 23:59 23:59 23:59 Intake Total 400 / 900 1800 / 1800 Balance 400 / 900 1800 / 1800 General: Alert, No apparent distress HEENT: Atraumatic, Normocephalic Oral: Moist Mucosa, No Gingival or Mucosal Lesions/ Ulcerations Neck: No Nodes, Thyroid Normal Size and Texture Lungs: Clear to auscultation, Normal air movement, No rhonchi, No wheeze Cardiovascular: Regular rate, Regular Rhythm, Normal S1, Normal S2, No murmurs Abdomen: Bowel Sounds Present, Soft, Non Tender, Non-Distended, No Hepato- splenomegaly Extremities: No edema, No Calf Tenderness Skin: No rashes, No breakdown Psych/Mental Status: Normal Affect, Appropriate Laboratory Results 06/03/20 12:10: Urine Opiates Screen NEGATIVE, Urine Methadone Screen NEGATIVE, Ur Barbiturates Screen NEGATIVE, Ur Phencyclidine Scrn NEGATIVE, Ur Amphetamines Screen NEGATIVE, U Methamphetamin-MDMA NEGATIVE, U Benzodiazepines Scrn NEGATIVE, Urine Cocaine Screen NEGATIVE, U Cannabinoids Screen NEGATIVE, Ur Drug Screen Comment 06/03/20 12:10: Urine Color Yellow, Urine Clarity Sl. Cloudy, Urine pH 6.0, Ur Specific [place] 1.010, Urine Protein Negative, Urine Glucose (UA) Normal, Urine Ketones Negative, Urine Occult Blood 25 H, Urine Nitrite Negative, Urine Bilirubin Negative, Urine Urobilinogen Normal, Ur Leukocyte Esterase Negative, Urine RBC 0 SEEN, Urine WBC 0 SEEN, Ur Squamous Epith Cells 0 SEEN, Urine Bacteria RARE, Urine Mucus 0 SEEN 06/03/20 12:20: WBC 6.6, RBC 4.17 L, Hgb 13.3, Hct 40.3, MCV 96.6, MCH 31.9, MCHC 33.0, RDW Std Deviation 45.6 H, RDW Coeff of Sariah 12.9, Plt Count 237, MPV 9.2, Immature Gran % (Auto) 0.300, Neut % (Auto) 50.3, Lymph % (Auto) 37.7, [place] % (Auto) 7.1, Eos % (Auto) 3.5, Baso % (Auto) 1.1 H, Absolute Neuts (auto) 3.3, Absolute Lymphs (auto) 2.48, Nucleated RBC % 0 06/03/20 12:20: Sodium 143, Potassium 3.7, Chloride 109 H, Carbon Dioxide 32.0, Anion Gap 2 L, BUN 12, Creatinine 0.85, Estim Creat Clear Calc 60.96, Est GFR (MDRD) Af Amer 87, Est GFR (MDRD) Non-Af 72, BUN/Creatinine Ratio 14.1, Glucose 92, Calcium 9.8, Total Bilirubin 0.40, AST 20, ALT 14, Alkaline Phosphatase 147 H, Total Protein 7.0, Albumin 3.3, Globulin 3.7, Albumin/Globulin Ratio 0.9, Lipase 61 L 06/03/20 12:20: Ethyl Alcohol < 3.0 06/03/20 12:20: Magnesium 2.2 Current Medications Acetaminophen (Tylenol) 500 mg PO Q4H PRN PRN PRN Reason: Temp > 100.4 F Al Hydroxide/Mg Hydroxide (Mylanta Ii) 30 ml PO Q6H PRN PRN PRN Reason: dyspesia Albuterol Sulfate (Ventolin Aerosols) 2.5 mg INHALATION Q2H PRN PRN PRN Reason: Dyspnea, wheezing Albuterol/Ipratropium (Duoneb) 3 ml INHALATION Q6HWA.RT [facility] Last Admin: 06/04/20 07:29 Dose: Not Given Documented by: Apixaban (Eliquis) 2.5 mg PO BID [facility] Last Admin: 06/04/20 09:33 Dose: 2.5 mg Documented by: Aspirin (Ecotrin) 81 mg PO DAILY [facility] Last Admin: 06/04/20 09:33 Dose: 81 mg Documented by: Bisacodyl (Dulcolax) 10 mg RECTAL DAILY PRN PRN Reason: Constipation Buprenorphine HCl (Buprenorphine Hcl) 4 mg SL Q8H [facility]; Taper Stop: 06/06/20 17:59 Last Admin: 06/04/20 09:33 Dose: 4 mg Documented by: Carvedilol (Coreg) 12.5 mg PO BID [facility] Last Admin: 06/04/20 09:33 Dose: 12.5 mg Documented by: Clonidine (Catapres) 0.1 mg PO Q8H PRN PRN PRN Reason: RESTLESSNESS Dicyclomine HCl (Bentyl) 20 mg PO Q6H PRN PRN PRN Reason: Abdominal Discomfort Last Admin: 06/04/20 05:18 Dose: 20 mg Documented by: Gabapentin (Neurontin) 300 mg PO Q8H PRN PRN PRN Reason: moderate to severe anxiety Hydroxyzine Pamoate (Vistaril Pamoate Capsule) 50 mg PO Q6H PRN PRN PRN Reason: mild anxiety Last Admin: 06/03/20 17:41 Dose: 50 mg Documented by: Ibuprofen (Motrin) 600 mg PO Q8H PRN PRN PRN Reason: Pain Score 1-10/10 Lisinopril (Zestril) 10 mg PO BID [facility] Last Admin: 06/04/20 09:33 Dose: 10 mg Documented by: Loperamide HCl (Imodium) 2 mg PO Q4H PRN PRN PRN Reason: LOOSE STOOLS Lorazepam (Ativan) 1 mg PO TID PRN PRN Reason: ANXIETY Last Admin: 06/04/20 05:18 Dose: 1 mg Documented by: Methocarbamol (Methocarbamol) 1,500 mg PO Q6H PRN PRN PRN Reason: MUSCLE SPASM Last Admin: 06/03/20 21:52 Dose: 1,500 mg Documented by: Neomycin/Polymyxin/Hydrocortisone (Otocort Susp (Bkc)) 4 drop OTIC 4X/DAY [facility] Last Admin: 06/04/20 09:34 Dose: 4 drop Documented by: Nicotine (Nicoderm Cq (Pbkc)) 14 mg TRANSDERM. DAILY [facility] Last Admin: 06/04/20 09:34 Dose: 14 mg Documented by: Nutritional Formula (Lactose Free) (Ensure Enlive) 120 ml PO 4X/DAY [facility] Last Admin: 06/04/20 09:38 Dose: 120 ml Documented by: Ondansetron HCl (Zofran) 8 mg PO Q8H PRN PRN PRN Reason: NAUSEA Last Admin: 06/03/20 17:40 Dose: 8 mg Documented by: Pantoprazole Sodium (Protonix) 40 mg PO DAILY [facility] Last Admin: 06/04/20 09:33 Dose: 40 mg Documented by: Senna (Senokot) 2 tablet PO QHS PRN PRN Reason: Constipation Last Admin: 06/04/20 05:18 Dose: 2 tablet Documented by: Sodium Chloride () 10 - 40 ml IV UD PRN PRN Reason: SALINE FLUSH Trazodone HCl (Desyrel) 100 mg PO QHS PRN PRN PRN Reason: INSOMNIA STROKE Vital Signs/Narrative: Vital Signs Temp Pulse Resp BP Pulse Ox 06/04/20 09:42 36.6 C 65 16 117/66 95 Medical Necessity - Tobacco Use Smoking Status: Current every day smoker Tobacco Use: Cigarettes Assessment/Plan All Active Problems (Last Updated 12/27/18 @ 16:34 by Delilah Benavides) Opiate dependence (Acute) Right otitis externa (Acute) Opiate withdrawal (Acute) Preoperative cardiovascular examination (Acute) Chest pain (Acute) 1. acute opiate withdrawal * on buprenorphine taper * other agents for other somatic complaints. * 180 to see 2. otitis externa * otocort 3. VTE prophylaxis: apixaban Inpatient E&M: 58081 Subs Hosp L2
[2020-06-04] MEDS: Ondansetron 8 MG Tablet PO (15:02)
[2020-06-04] MEDS: Bisacodyl 10 MG Suppository RECTAL (15:02)
--- NOTE | 2020-06-04 18:43 | NURSING ---
pt daughter called for info on pt. pt stated she did not want any info given to daughter. told daughter that pt will contact her once she is out of hospital. daughter understood
[2020-06-04] MEDS: Ipratropium/Albuterol Sulfate 3 ML AMPUL.NEB INHALATION (19:30)
[2020-06-04] MEDS: Gabapentin 300 MG Capsule PO (20:59)
[2020-06-05] VITALS (7 sets, daily range): BP systolic 113–144; BP diastolic 53–75; PULSE 55–68; RESP 16–20; TEMP 36.7–36.8; O2SAT 94–96
[2020-06-05] MEDS: Buprenorphine HCl 2 MG TAB.SUBL SL ×3 (02:41→17:22)
[2020-06-05] MEDS: cloNIDine HCl 0.1 MG Tablet PO (02:41)
[2020-06-05] MEDS: Ipratropium/Albuterol Sulfate 3 ML AMPUL.NEB INHALATION ×3 (06:49→19:46)
--- NOTE | 2020-06-05 08:55 | PN_ITS ---
Patient Problems: Active and Suspected Problems (Last Updated 12/27/18 @ 16:34 by Delilah Benavides) Opiate dependence (Acute) Right otitis externa (Acute) Opiate withdrawal (Acute) Reason for Visit: opiate withdrawal Subjective: Complains of intermittent chest pain. States that ~ 8 months ago she had an EGD that showed bile in her stomach, something in her esophagus, but also was not able to pass part of her esophagus (though it was able to see in her stomach). Upset that I stopped her lorazepam yesterday. Stated that she was recently changed over clonazepam. States that she did not let the BZD prescriber know about her opiate abuse. Her ears have been bothering her for 1 week. Decreased hearing during this time. Vitals/I&O's: Vital Signs Temp Pulse Resp BP Pulse Ox 36.8 C 68 16 144/73 H 95 06/05/20 02:34 06/05/20 06:49 06/05/20 06:49 06/05/20 02:34 06/05/20 06:49 Oxygen Delivery Method Room Air Weight: 72.4 kg Body Mass Index (BMI) 26.5 Finger Stick Blood Glucose 76 Intake and Output for Last 24 Hours 06/03/20 06/04/20 06/05/20 23:59 23:59 23:59 Intake Total 400 / 900 2450 / 2450 900 / 900 Balance 400 / 900 2450 / 2450 900 / 900 General: Alert, No apparent distress, - - anxious. afebrile. HEENT: Atraumatic, Normocephalic, - - ruptured TM on right, inflamed TM on left. Extremities: No edema, No Calf Tenderness Skin: No rashes, No breakdown Psych/Mental Status: Appropriate, Anxious Current Medications Acetaminophen (Tylenol) 500 mg PO Q4H PRN PRN PRN Reason: Temp > 100.4 F Al Hydroxide/Mg Hydroxide (Mylanta Ii) 30 ml PO Q6H PRN PRN PRN Reason: dyspesia Albuterol Sulfate (Ventolin Aerosols) 2.5 mg INHALATION Q2H PRN PRN PRN Reason: Dyspnea, wheezing Albuterol/Ipratropium (Duoneb) 3 ml INHALATION Q6HWA.RT [facility] Last Admin: 06/05/20 06:49 Dose: 3 ml Documented by: Apixaban (Eliquis) 2.5 mg PO BID [facility] Last Admin: 06/04/20 21:00 Dose: 2.5 mg Documented by: Aspirin (Ecotrin) 81 mg PO DAILY [facility] Last Admin: 06/04/20 09:33 Dose: 81 mg Documented by: Bisacodyl (Dulcolax) 10 mg RECTAL DAILY PRN PRN Reason: Constipation Last Admin: 06/04/20 15:02 Dose: 10 mg Documented by: Buprenorphine HCl (Buprenorphine Hcl) 2 mg SL Q8H [facility]; Taper Stop: 06/06/20 17:59 Last Admin: 06/05/20 02:41 Dose: 2 mg Documented by: Carvedilol (Coreg) 12.5 mg PO BID [facility] Last Admin: 06/04/20 21:00 Dose: 12.5 mg Documented by: Clonidine (Catapres) 0.1 mg PO Q8H PRN PRN PRN Reason: RESTLESSNESS Last Admin: 06/05/20 02:41 Dose: 0.1 mg Documented by: Dicyclomine HCl (Bentyl) 20 mg PO Q6H PRN PRN PRN Reason: Abdominal Discomfort Last Admin: 06/04/20 20:59 Dose: 20 mg Documented by: Gabapentin (Neurontin) 300 mg PO Q8H PRN PRN PRN Reason: moderate to severe anxiety Last Admin: 06/04/20 20:59 Dose: 300 mg Documented by: Hydroxyzine Pamoate (Vistaril Pamoate Capsule) 50 mg PO Q6H PRN PRN PRN Reason: mild anxiety Last Admin: 06/03/20 17:41 Dose: 50 mg Documented by: Ibuprofen (Motrin) 600 mg PO Q8H PRN PRN PRN Reason: Pain Score 1-10/10 Lisinopril (Zestril) 10 mg PO BID [facility] Last Admin: 06/04/20 21:01 Dose: 10 mg Documented by: Loperamide HCl (Imodium) 2 mg PO Q4H PRN PRN PRN Reason: LOOSE STOOLS Methocarbamol (Methocarbamol) 1,500 mg PO Q6H PRN PRN PRN Reason: MUSCLE SPASM Last Admin: 06/03/20 21:52 Dose: 1,500 mg Documented by: Neomycin/Polymyxin/Hydrocortisone (Otocort Susp (Bkc)) 4 drop OTIC 4X/DAY [facility] Last Admin: 06/04/20 21:00 Dose: 4 drop Documented by: Nicotine (Nicoderm Cq (Pbkc)) 14 mg TRANSDERM. DAILY [facility] Last Admin: 06/04/20 09:34 Dose: 14 mg Documented by: Nutritional Formula (Lactose Free) (Ensure Enlive) 120 ml PO 4X/DAY [facility] Last Admin: 06/04/20 20:59 Dose: 120 ml Documented by: Ondansetron HCl (Zofran) 8 mg PO Q8H PRN PRN PRN Reason: NAUSEA Last Admin: 06/04/20 15:02 Dose: 8 mg Documented by: Pantoprazole Sodium (Protonix) 40 mg PO DAILY [facility] Last Admin: 06/04/20 09:33 Dose: 40 mg Documented by: Senna (Senokot) 2 tablet PO QHS PRN PRN Reason: Constipation Last Admin: 06/04/20 05:18 Dose: 2 tablet Documented by: Sodium Chloride () 10 - 40 ml IV UD PRN PRN Reason: SALINE FLUSH Trazodone HCl (Desyrel) 100 mg PO QHS PRN PRN PRN Reason: INSOMNIA STROKE Vital Signs/Narrative: Vital Signs Pulse Resp Pulse Ox 06/05/20 06:49 68 16 95 Medical Necessity - Tobacco Use Smoking Status: Current every day smoker Tobacco Use: Cigarettes Assessment/Plan All Active Problems (Last Updated 12/27/18 @ 16:34 by Delilah Benavides) Opiate dependence (Acute) Right otitis externa (Acute) Opiate withdrawal (Acute) Preoperative cardiovascular examination (Acute) Chest pain (Acute) 1. acute opiate withdrawal * on buprenorphine taper * other agents for other somatic complaints. * 180 to see 2. otitis media (externa ruled out) * otocort of no relief, will discontinue * start amoxicillin 1000mg TID for 10 days * advised that there is a rupture of right TM. No urgent need for ENT at this time, may follow up in 4-6 issues if still having issues. 3. anxiety * explained to pt, that BZDs are a poor choice for anxiety, particularly with her opiate addiction * recommend slow taper: clonazepam 0.5mg daily for 7 days, then every other day x3 then stop * reviewed her OARRS, see that she has been recently changed from lorazepam to clonazepam 0.5 BID. She will need to follow up with her prescriber (Leatha Sinclair) for other more appropriate options to treat her anxiety. Pt endorses that she did not her prescriber know about her opiate addition 4. chest pain * pt gave a confusing story about an issue with her esophagus. I feel her story is confusing given her lack of knowledge of anatomy, not out of deceit. * request records from [facility] where her endoscopy was performed. 5. VTE prophylaxis: apixaban Greater than 35 minutes of which greater than 50% of the time was counseling patient about benzodiazepines, addiction potential and paucity of data supporting use nursing home in anxiety. Inpatient E&M: 98722 [facility] L3
--- NOTE | 2020-06-05 09:08 | PCA ---
sent request to medical records havent recieved any at this time
--- NOTE | 2020-06-05 09:59 | ADDICTION ---
This underwriter met with patient to discuss discharge planning. Her discharge plan is as follows: * Assessment appointment - [facility] 06/11/2020 @1pm * PCP appointment - [facility] 06/08/2020@12:30pm * This underwriter will refer to Jaylan HANNA * She is to follow-up with Linda at [facility] for Psyc. services. She did not report a need for transportation. She was given the contact information for this underwriter, the 24 Hour Navigator and the Peer Support Hotline.
[2020-06-05] MEDS: Lisinopril 10 MG Tablet PO ×2 (10:35→22:39)
[2020-06-05] MEDS: clonazePAM 0.5 MG Tablet PO ×2 (10:35→22:45)
[2020-06-05] MEDS: Aspirin E.C. 81 MG Tablet PO (10:35)
[2020-06-05] MEDS: APIXABAN 2.5 MG TABLET PO ×2 (10:36→22:38)
[2020-06-05] MEDS: Pantoprazole Sodium 40 MG Tablet PO (10:36)
[2020-06-05] MEDS: Carvedilol 12.5 MG Tablet PO (10:36)
[2020-06-05] MEDS: AMOXICILLIN 500 MG CAPSULE 1000 MG PO ×2 (13:54→22:36)
[2020-06-05] MEDS: Mag Hydrox/Al Hydrox/Simeth 30 ML UDC PO (15:39)
[2020-06-05] MEDS: Ondansetron 8 MG Tablet PO (17:21)
[2020-06-05] MEDS: Dicyclomine 10 MG Capsule 20 MG PO (17:22)
[2020-06-05] MEDS: Gabapentin 300 MG Capsule PO (17:22)
--- NOTE | 2020-06-05 23:16 | NURSING ---
Dr. Daniel notified of pts HR of 57, Coreg 12.5mg scheduled for tonight, asked if it was okay to give, said it was okay to give. this RN went to give to pt, but pt refused and said she do not want to take it because my heart rate is never that low and I know my body Coreg was held due to pt refusal
[2020-06-06 03:25] VITALS: BP 130/67; PULSE 50; RESP 18; TEMP 36.6; O2SAT 97
[2020-06-06] MEDS: AMOXICILLIN 500 MG CAPSULE 1000 MG PO (05:53)
[2020-06-06] MEDS: Buprenorphine HCl 2 MG TAB.SUBL SL (05:53)
[2020-06-06] MEDS: Dicyclomine 10 MG Capsule 20 MG PO (06:20)
[2020-06-06 08:39] VITALS: BP 95/73; PULSE 55; RESP 18; TEMP 36.8; O2SAT 95
--- NOTE | 2020-06-06 08:43 | PCM.DC ---
- Discharge Diagnoses Current Active Problems: Current Active and Chronic Problems (Last Updated 12/27/18 @ 16:34 by Delilah Benavides) Opiate dependence (Acute) Right otitis externa (Acute) Opiate withdrawal (Acute) You will use the following diet at home:: No restrictions Your food should be the consistency of: Regular Discharge Activity: Return to Normal Activity Call your doctor if you observe: - - worsening abdominal pain. Worsening ear pain. Allergies/Adverse Reactions: Allergies No Known Allergies Allergy (Verified 06/03/20 11:20) Medications to take at Discharge Lisinopril [Zestril] 10 mg PO BID 11/18/15 Aspirin E.C. [Ecotrin] 81 mg PO DAILY 07/21/18 Omeprazole [Prilosec] 40 mg PO DAILY 12/24/18 proMETHazine tablet [Phenergan tablet] 25 mg PO Q4H PRN PRN #20 tab 12/24/18 carvedilol 12.5 mg tablet 12.5 mg PO BID #60 tab 06/29/19 Ondansetron [Zofran Odt] 4 mg PO Q8H PRN PRN #10 tab 01/09/20 Gabapentin [Neurontin] 300 mg PO TID 06/05/20 Venlafaxine XR [Effexor Xr] 150 mg PO DAILY 06/05/20 Amoxicillin [Amoxil] 1,000 mg PO Q8 #27 cap 06/06/20 Clonazepam [Klonopin] 0.5 mg PO DAILY #0 06/06/20 Dicyclomine HCl [Bentyl] 20 mg PO Q6H PRN PRN #30 cap 06/06/20 The following prescriptions were given: Amoxicillin [Amoxil] 1,000 mg PO Q8 #27 cap Transmission Status: Pending to [facility] Dicyclomine HCl [Bentyl] 20 mg PO Q6H PRN PRN #30 cap PRN Reason: Abdominal Discomfort Transmission Status: Pending to [facility] Primary Care Physician: Chucky Martinez MD [NON-STAFF] - Test Results: Test results from this visit will be discussed in further detail at your follow-up appointment, if applicable. Please Follow Up With: [facility] When: 06/08/2020 12:30 [facility]: 06/11[facility]2020 1pm Please Follow Up With: ENT When: 4-6 weeks if ears are not improved. Proposed Discharge Date: 06/06/20
--- NOTE | 2020-06-06 08:46 | DS.PCM_ITS ---
Discharge Date and Diagnosis - Problem List Patient Problems: Active and Suspected Problems (Last Updated 12/27/18 @ 16:34 by Delilah Benavides) Opiate dependence (Acute) Opiate withdrawal (Acute) Otitis media (Acute) Date of Admission: 06/03/20 Date of Discharge: 06/06/20 - Primary Discharge Diagnosis Acute Problems: Active Problems (Last Updated 12/27/18 @ 16:34 by Delilah Benavides) Opiate dependence (Acute) Right otitis externa (Acute) Opiate withdrawal (Acute) - Secondary Discharge Diagnosis Chronic Problems: Chronic Problems (Last Updated 12/27/18 @ 16:34 by Delilah Benavides) Essential hypertension (Chronic) Tobacco use (Chronic) EVELYN (obstructive sleep apnea) (Chronic) Obesity (BMI 30.0-34.9) (Chronic) TIA (transient ischemic attack) (Chronic) GERD (gastroesophageal reflux disease) (Chronic) Anxiety and depression (Chronic) NSTEMI (non-ST elevated myocardial infarction) (Chronic) Cardiomyopathy (Chronic) Hyperlipidemia (Chronic) Atherosclerotic heart disease of [place] coronary artery without angina pectoris (Chronic) Mild Hospital Course and Treatment Operations: None Procedures: None Summary of Care Provided: The patient is a 64 year old F seeking treatment for opiate withdrawal. Hospitalization from the standpoint was pretty straightforward in regards to patient being on a buprenorphine taper. Patient would follow-up with 180 as outpatient. It was complicated by abdominal pain and chest pain. Patient has had extensive work-up for this in the past. I did request records but did not receive any records of her endoscopy. Patient has sensation of food getting stuck but is able to eat at times but throws up at other times. Patient will be put on Bentyl as outpatient. Patient to follow-up with gastroenterology as outpatient. Patient had been scheduled to see them but with pandemic that had been pushed back. Patient also did have otitis media. Initially stated has otitis externa but patient external auditory canals are patent. Patient does have a ruptured eardrum on the right and inflammation on her left tympanic membrane. Patient today noted improvement of her ears. Patient advised that it may take several weeks for her hearing to get back to normal or to improve overall. 1. acute opiate withdrawal * completed buprenorphine taper * other agents for other somatic complaints. * Patient to follow up with [facility] on 06/11 2. otitis media (externa ruled out) * improving * otocort of no relief, will discontinue * start amoxicillin 1000mg TID for 10 days * advised that there is a rupture of right TM. No urgent need for ENT at this time, may follow up in 4-6 issues if still having issues. 3. anxiety * explained to pt, that BZDs are a poor choice for anxiety, particularly with her opiate addiction * recommend slow taper: clonazepam 0.5mg daily for 7 days, then every other day x4 then stop * reviewed her OARRS, see that she has been recently changed from lorazepam to clonazepam 0.5 BID. She will need to follow up with her prescriber (Leatha Sinclair) for other more appropriate options to treat her anxiety. Pt endorses that she did not her prescriber know about her opiate addition 4. chest pain * pt gave a confusing story about an issue with her esophagus. I feel her story is confusing given her lack of knowledge of anatomy, not out of deceit. * request records from [facility] where her endoscopy was performed. * add karissayl * Follow up with GI [] Patient Problems: Active and Suspected Problems (Last Updated 12/27/18 @ 16:34 by Delilah Benavides) Opiate dependence (Acute) Opiate withdrawal (Acute) Otitis media (Acute) - Physical Exam Vitals/I&O's: Vital Signs Temp Pulse Resp BP Pulse Ox 36.8 C 55 L 18 95/73 95 06/06/20 08:39 06/06/20 08:39 06/06/20 08:39 06/06/20 08:39 06/06/20 08:39 Oxygen Delivery Method Room Air Weight: 72.4 kg Body Mass Index (BMI) 26.5 Finger Stick Blood Glucose 76 Intake and Output for Last 24 Hours 06/04/20 06/05/20 06/06/20 23:59 23:59 23:59 Intake Total 2450 / 2450 1380 / 1380 600 / 600 Balance 2450 / 2450 1380 / 1380 600 / 600 General: Alert, No apparent distress HEENT: Atraumatic, Normocephalic Oral: Moist Mucosa, No Gingival or Mucosal Lesions/ Ulcerations Psych/Mental Status: Appropriate, - - tearful Current Medications Acetaminophen (Tylenol) 500 mg PO Q4H PRN PRN PRN Reason: Temp > 100.4 F Al Hydroxide/Mg Hydroxide (Mylanta Ii) 30 ml PO Q6H PRN PRN PRN Reason: dyspesia Last Admin: 06/05/20 15:39 Dose: 30 ml Documented by: Albuterol Sulfate (Ventolin Aerosols) 2.5 mg INHALATION Q2H PRN PRN PRN Reason: Dyspnea, wheezing Albuterol/Ipratropium (Duoneb) 3 ml INHALATION Q6HWA.RT [facility] Last Admin: 06/06/20 06:48 Dose: Not Given Documented by: Amoxicillin (Amoxil) 1,000 mg PO Q8 [facility] Last Admin: 06/06/20 05:53 Dose: 1,000 mg Documented by: Apixaban (Eliquis) 2.5 mg PO BID [facility] Last Admin: 06/05/20 22:38 Dose: 2.5 mg Documented by: Aspirin (Ecotrin) 81 mg PO DAILY [facility] Last Admin: 06/05/20 10:35 Dose: 81 mg Documented by: Bisacodyl (Dulcolax) 10 mg RECTAL DAILY PRN PRN Reason: Constipation Last Admin: 06/04/20 15:02 Dose: 10 mg Documented by: Buprenorphine HCl (Buprenorphine Hcl) 2 mg SL Q12H [facility]; Taper Stop: 06/06/20 17:59 Last Admin: 06/06/20 05:53 Dose: 2 mg Documented by: Carvedilol (Coreg) 12.5 mg PO BID [facility] Last Admin: 06/05/20 23:05 Dose: Not Given Documented by: Clonazepam (Klonopin) 0.5 mg PO QHS [facility] Stop: 06/12/20 22:01 Last Admin: 06/05/20 22:45 Dose: 0.5 mg Documented by: Clonidine (Catapres) 0.1 mg PO Q8H PRN PRN PRN Reason: RESTLESSNESS Last Admin: 06/05/20 02:41 Dose: 0.1 mg Documented by: Dicyclomine HCl (Bentyl) 20 mg PO Q6H PRN PRN PRN Reason: Abdominal Discomfort Last Admin: 06/06/20 06:20 Dose: 20 mg Documented by: Gabapentin (Neurontin) 300 mg PO Q8H PRN PRN PRN Reason: moderate to severe anxiety Last Admin: 06/04/20 20:59 Dose: 300 mg Documented by: Gabapentin (Neurontin) 300 mg PO TIDCM [facility] Last Admin: 06/05/20 17:22 Dose: 300 mg Documented by: Hydroxyzine Pamoate (Vistaril Pamoate Capsule) 50 mg PO Q6H PRN PRN PRN Reason: mild anxiety Last Admin: 06/03/20 17:41 Dose: 50 mg Documented by: Ibuprofen (Motrin) 600 mg PO Q8H PRN PRN PRN Reason: Pain Score 1-10/10 Lisinopril (Zestril) 10 mg PO BID [facility] Last Admin: 06/05/20 22:39 Dose: 10 mg Documented by: Loperamide HCl (Imodium) 2 mg PO Q4H PRN PRN PRN Reason: LOOSE STOOLS Methocarbamol (Methocarbamol) 1,500 mg PO Q6H PRN PRN PRN Reason: MUSCLE SPASM Last Admin: 06/03/20 21:52 Dose: 1,500 mg Documented by: Nicotine (Nicoderm Cq (Pbkc)) 14 mg TRANSDERM. DAILY [facility] Last Admin: 06/05/20 10:35 Dose: 14 mg Documented by: Nutritional Formula (Lactose Free) (Ensure Enlive) 120 ml PO 4X/DAY [facility] Last Admin: 06/05/20 22:38 Dose: Not Given Documented by: Ondansetron HCl (Zofran) 8 mg PO Q8H PRN PRN PRN Reason: NAUSEA Last Admin: 06/05/20 17:21 Dose: 8 mg Documented by: Pantoprazole Sodium (Protonix) 40 mg PO DAILY [facility] Last Admin: 06/05/20 10:36 Dose: 40 mg Documented by: Senna (Senokot) 2 tablet PO QHS PRN PRN Reason: Constipation Last Admin: 06/04/20 05:18 Dose: 2 tablet Documented by: Sodium Chloride () 10 - 40 ml IV UD PRN PRN Reason: SALINE FLUSH Trazodone HCl (Desyrel) 100 mg PO QHS PRN PRN PRN Reason: INSOMNIA Venlafaxine HCl (Effexor Xr) 150 mg PO DAILY [facility] Discharge Diet: No Restrictions Discharge Activity: Return to Normal Activity Call your doctor if you observe: - - worsening abdominal pain. Worsening ear pain. Home Medications: Medications to take at Discharge Lisinopril [Zestril] 10 mg PO BID 11/18/15 Aspirin E.C. [Ecotrin] 81 mg PO DAILY 07/21/18 Omeprazole [Prilosec] 40 mg PO DAILY 12/24/18 proMETHazine tablet [Phenergan tablet] 25 mg PO Q4H PRN PRN #20 tab 12/24/18 carvedilol 12.5 mg tablet 12.5 mg PO BID #60 tab 06/29/19 Ondansetron [Zofran Odt] 4 mg PO Q8H PRN PRN #10 tab 01/09/20 Gabapentin [Neurontin] 300 mg PO TID 06/05/20 Venlafaxine XR [Effexor Xr] 150 mg PO DAILY 06/05/20 Amoxicillin [Amoxil] 1,000 mg PO Q8 #27 cap 06/06/20 Clonazepam [Klonopin] 0.5 mg PO DAILY #0 06/06/20 Dicyclomine HCl [Bentyl] 20 mg PO Q6H PRN PRN #30 cap 06/06/20 Following Prescriptions Were Given to Patient: Amoxicillin [Amoxil] 1,000 mg PO Q8 #27 cap Transmission Status: Pending to [facility] [facility] Dicyclomine HCl [Bentyl] 20 mg PO Q6H PRN PRN #30 cap PRN Reason: Abdominal Discomfort Transmission Status: Pending to [facility] [facility] Primary Care Physician: Chucky Martinez MD [NON-STAFF] - Please Follow Up With: [facility] When: 06/08/2020 12:30 Please Follow Up With: [facility] When: 06/11/2020 1pm Please Follow Up With: ENT When: 4-6 weeks if ears are not improved. Disposition: Home Minutes spent on discharge:: 35 Patient Condition:: Good Medical Necessity - Tobacco Use Smoking Status: Current every day smoker Tobacco Use: Cigarettes Meaningful Use Info Meaningful Use Diagnoses (Choose all that apply): None applicable Inpatient E&M: 63168 [facility] Hosp
[2020-06-06] MEDS: Carvedilol 12.5 MG Tablet PO (08:49)
[2020-06-06] MEDS: Aspirin E.C. 81 MG Tablet PO (08:50)
[2020-06-06] MEDS: Pantoprazole Sodium 40 MG Tablet PO (08:51)
[2020-06-06] MEDS: APIXABAN 2.5 MG TABLET PO (08:51)
[2020-06-06] MEDS: Gabapentin 300 MG Capsule PO (08:58)
[2020-06-06] MEDS: Venlafaxine XR 150 MG Capsule PO (08:58)
--- NOTE | 2020-06-06 10:21 | NURSING ---
LATE ENTRY - LISINOPRIL HELD DUE TO BP 95/73. DR CAZARES AWARE.
[2020-06-06 11:00] VITALS: BP 114/64
[2020-06-06 11:20] VITALS: BP 114/64; PULSE 55; RESP 18; TEMP 36.8; O2SAT 95
--- NOTE | 2020-06-06 11:22 | PHA.DC.MC ---
Pharmacy Service has performed discharge medication reconciliation and counseling for this patient. 1. AMOXICILLIN 1000MG PO Q8H X 9 DAYS 2. DICYCLOMINE 20MG PO Q6H PRN ABDOMINAL DISCOMFORT The patient's discharge medication list was reviewed for discrepancies and discrepancies were resolved. Home Medications Lisinopril [Zestril] 10 mg PO BID 11/18/15 Aspirin E.C. [Ecotrin] 81 mg PO DAILY 07/21/18 Omeprazole [Prilosec] 40 mg PO DAILY 12/24/18 proMETHazine tablet [Phenergan tablet] 25 mg PO Q4H PRN PRN #20 tab 12/24/18 carvedilol 12.5 mg tablet 12.5 mg PO BID #60 tab 06/29/19 Ondansetron [Zofran Odt] 4 mg PO Q8H PRN PRN #10 tab 01/09/20 Gabapentin [Neurontin] 300 mg PO TID 06/05/20 Venlafaxine XR [Effexor Xr] 150 mg PO DAILY 06/05/20 Amoxicillin [Amoxil] 1,000 mg PO Q8 #27 cap 06/06/20 Clonazepam [Klonopin] 0.5 mg PO DAILY #0 06/06/20 Dicyclomine HCl [Bentyl] 20 mg PO Q6H PRN PRN #30 cap 06/06/20 The patient was counseled on the following discharge medications and changes in medications for homegoing were reviewed. The Reason for Use, instructions for use, and potential side effects were reviewed for all new medications. The patient's questions regarding all of their medications were answered. The patient was able to verbally demonstrate an understanding of their discharge medications.
--- NOTE | 2020-06-06 11:26 | NURSING ---
1055-pt ambulated to nurses station reporting felt dizzy/light headed. met patient back in room. BP 114/64, HR 66. O2 sat 94% on room air. denies changes in symptoms with positional changes. pt states has had these symptoms on/off since admission. denies further needs.
== END 2020-06-06 11:20 | disposition home or self-care (01) | DRG 897 ==
LOC: ED 13:51 → MS3 15:00
PROVIDERS: Admitting Provider Family Medicine; Emergency Provider Emergency Medicine
DX: F11.23 Opioid dependence with withdrawal (principal); I42.9 Cardiomyopathy, unspecified; I10 Essential (primary) hypertension; K21.9 Gastro-esophageal reflux disease without esophagitis; E78.5 Hyperlipidemia, unspecified; I25.10 Atherosclerotic heart disease of native coronary artery without angina pectoris; I25.2 Old myocardial infarction; E66.9 Obesity, unspecified; Z86.73 Personal history of transient ischemic attack (TIA), and cerebral infarction without residual deficits; Z79.82 Long term (current) use of aspirin; Z79.899 Other long term (current) drug therapy; F17.210 Nicotine dependence, cigarettes, uncomplicated; Z68.26 Body mass index [BMI] 26.0-26.9, adult; G89.29 Other chronic pain; R10.84 Generalized abdominal pain; J44.9 Chronic obstructive pulmonary disease, unspecified; F32.9 Major depressive disorder, single episode, unspecified; F41.9 Anxiety disorder, unspecified; H66.91 Otitis media, unspecified, right ear; H72.91 Unspecified perforation of tympanic membrane, right ear; R07.9 Chest pain, unspecified
CPT/HCPCS: 80053; 80307; 80320; 81001; 83690; 83735; 85025; 94640; 97802; 99251; 99285; 99406; J7120; A4216; G0463; G0480

== ENCOUNTER 2020-07-05 22:48 | Inpatient (IN) | payer MEDICARE, MEDICAID, SELFPAY ==
[2020-06-08 13:23] VITALS: BMI 26.5
[2020-07-05 22:50] VITALS: BP 183/120; PULSE 89; RESP 18; TEMP 36.3; O2SAT 99; BMI 25.8
--- NOTE | 2020-07-05 23:06 | EKG12_ITS ---
Test Reason : DYSRHYTHMIA Blood Pressure : / mmHG Vent. Rate : 078 BPM Atrial Rate : 078 BPM P-R Int : 132 ms QRS Dur : 102 ms QT Int : 364 ms P-R-T Axes : 057 049 072 degrees QTc Int : 414 ms Normal sinus rhythm Septal infarct , age undetermined T wave abnormality, consider anterior ischemia Abnormal ECG Confirmed by CECI MARTINEZ, GEO ([id number]), proposal editor MICAH SALMERON ([id number]) on 07/06/2020 9:32:58 AM Referred By: Confirmed By:GEO ORNELAS MD
--- NOTE | 2020-07-05 23:07 | ED.DCSUM_ITS ---
History of Present Illness Chief Complaint: General Illness Informant: Patient Narrative: 64-year-old female with chronic abdominal pain that reportedly has had extensive work-up presents asking for detoxification from fentanyl. She was last admitted for this about 1 month ago and has been with [facility]. Her sobriety lasted approximately 1 week and she began to snort fentanyl again. She states she does so to numb her abdominal pain. She states that she spoke with [facility] and they told her to come back and be readmitted for detox. - Past Medical History (1) Opiate dependence Status: Acute (2) Anxiety and depression Status: Chronic (3) Atherosclerotic heart disease of [place] coronary artery without angina pectoris Status: Chronic Comment: Mild (4) Cardiomyopathy Status: Chronic (5) Essential hypertension Status: Chronic (6) Hyperlipidemia Status: Chronic (7) NSTEMI (non-ST elevated myocardial infarction) Status: Chronic (8) EVELYN (obstructive sleep apnea) Status: Chronic (9) Obesity (BMI 30.0-34.9) Status: Chronic (10) TIA (transient ischemic attack) Status: Chronic Past Medical History - Allergies and Home Meds Allergies/Adverse Reactions: Allergies No Known Allergies Allergy (Verified 07/05/20 22:53) Primary Care Physician: Adri Anne MD [Primary Care Provider] - Prior records reviewed: Yes Surgical History: appendectomy, hysterectomy Smoking Status: Current every day smoker Drugs: - - Opiates - Family History Maternal Family History: Family History (Last Reviewed 07/22/18 @ 04:[address] Thor Daniel MD) Mother Hypertension CAD (coronary artery disease) CVA (cerebral vascular accident) Myocardial infarction Grandmother Myocardial infarction Family History: Reports: High Cholesterol, Heart Disease, Hypertension, Stroke Paternal Family History: Family History (Last Reviewed 07/22/18 @ 04:[address] Thor Daniel MD) Mother Hypertension CAD (coronary artery disease) CVA (cerebral vascular accident) Myocardial infarction Grandmother Myocardial infarction Family History: Reports: - - Patient states she does not know any of her father's history. Review of Systems General: Denies: Chills, Fever, Sweats Eyes: Denies: Visual changes - bilaterally, Diplopia ENT: Denies: Rhinorrhea, Sore throat Cardiovascular: Denies: Chest pain, Palpitations Respiratory: Denies: Dyspnea, Cough, Dyspnea on exertion Gastrointestinal: Reports: Abdominal pain. Denies: Nausea, Vomiting, Diarrhea, Melena, Hematochezia Genitourinary: Denies: Dysuria, Hematuria, Frequency Musculoskeletal: Denies: Back pain, Extremity Pain Skin: Denies: Rash, Wounds Neurological: Denies: Headache, Weakness, Numbness Physical Exam Vital Signs/Narrative: Vital Signs Temp Pulse Resp BP Pulse Ox 07/05/20 22:50 97.3 F L 89 18 183/120 H 99 Inital Vital Signs reviewed: Yes General: Well nourished, Well developed, No Acute Distress Head: Normocephalic, Atraumatic Eyes: Perrl, EOMI ENT: Moist mucous membranes, No rhinorrhea Neck: Supple, Nontender Cardiovascular: Regular rate, Regular rhythm, No murmurs Respiratory: No distress, CTA bilaterally, Chest nontender Abdomen: Soft, Nontender, Nondistended, Normal bowel sounds Back: Nontender, Normal Inspection Extremities: Nontender, No edema Skin: Normal color, No rash Neurological: Alert, Oriented x3, Cranial nerves II-XII grossly intact, Normal Strength, Normal Sensation Psychological: Normal affect, Normal Mood Diagnostic/Tx/Re-eval Laboratory Last Values WBC 7.8 K/mm3 (4.4-11.0) 07/05/20 23:16 RBC 4.27 M/mm3 (4.2-5.4) 07/05/20 23:16 Hgb 13.6 g/dL (12.0-15.0) 07/05/20 23:16 Hct 41.2 % (37-47) 07/05/20 23:16 MCV 96.5 fL (81-99) 07/05/20 23:16 MCH 31.9 pg (27.0-32.0) 07/05/20 23:16 MCHC 33.0 g/dL (32-36) 07/05/20 23:16 RDW Std Deviation 46.3 fl (35.1-43.9) H 07/05/20 23:16 RDW Coeff of Sariah 13.0 % (11.6-14.6) 07/05/20 23:16 Plt Count 220 K/mm3 (150-450) 07/05/20 23:16 MPV 9.5 fl (6.2-12.0) 07/05/20 23:16 Immature Gran % (Auto) 0.800 % (0.0-0.9) 07/05/20 23:16 Neut % (Auto) 52.5 % (47-70) 07/05/20 23:16 Lymph % (Auto) 35.1 % (19-41) 07/05/20 23:16 [place] % (Auto) 7.9 % (0-10) 07/05/20 23:16 Eos % (Auto) 3.2 % (0-5) 07/05/20 23:16 Baso % (Auto) 0.5 % (0-1) 07/05/20 23:16 Absolute Neuts (auto) 4.1 X10^3/uL (2.0-7.7) 07/05/20 23:16 Absolute Lymphs (auto) 2.75 X10^3/uL (0.83-4.51) 07/05/20 23:16 Nucleated RBC % 0 % (0-5) 07/05/20 23:16 PT 12.8 SECONDS (11.7-14.9) 07/05/20 23:16 INR 1.0 07/05/20 23:16 Sodium 142 mmol/L (136-145) 07/05/20 23:16 Potassium 3.7 mmol/L (3.5-5.1) 07/05/20 23:16 Chloride 110 mmol/L (98-107) H 07/05/20 23:16 Carbon Dioxide 29.0 mmol/L (21.0-32.0) 07/05/20 23:16 Anion Gap 3 (5-15) L 07/05/20 23:16 BUN 19 mg/dL (7-18) H 07/05/20 23:16 Creatinine 0.81 mg/dL (0.55-1.02) 07/05/20 23:16 Estim Creat Clear Calc 66.55 ml/min 07/05/20 23:16 Est GFR (MDRD) Af Amer 92 mL/min (>60) 07/05/20 23:16 Est GFR (MDRD) Non-Af 76 mL/min (>60) 07/05/20 23:16 BUN/Creatinine Ratio 23.4 RATIO (10-20) H 07/05/20 23:16 Glucose 99 mg/dL (74-106) 07/05/20 23:16 Calcium 9.5 mg/dL (8.5-10.1) 07/05/20 23:16 Total Bilirubin 0.30 mg/dL (0.20-1.00) 07/05/20 23:16 AST 14 U/L (15-37) L 07/05/20 23:16 ALT 13 U/L (13-56) 07/05/20 23:16 Alkaline Phosphatase 146 U/L (45-117) H 07/05/20 23:16 Total Protein 7.0 g/dL (6.4-8.2) 07/05/20 23:16 Albumin 3.2 g/dL (3.2-5.0) 07/05/20 23:16 Globulin 3.8 g/dL (2.2-4.2) 07/05/20 23:16 Albumin/Globulin Ratio 0.8 RATIO (0.9-2.4) L 07/05/20 23:16 Lipase 167 U/L (73-393) 07/05/20 23:16 Urine Color Yellow (Yellow) 07/05/20 23:10 Urine Clarity Sl. Cloudy (Clear) 07/05/20 23:10 Urine pH 8.0 (5.0 - 8.0) 07/05/20 23:10 Ur Specific [place] 1.015 (1.002-1.030) 07/05/20 23:10 Urine Protein Negative mg/dl (Negative) 07/05/20 23:10 Urine Glucose (UA) Normal mg/dl (Normal) 07/05/20 23:10 Urine Ketones Negative mg/dl (Negative) 07/05/20 23:10 Urine Occult Blood 25 /ul (Negative) H 07/05/20 23:10 Urine Nitrite Negative (Negative) 07/05/20 23:10 Urine Bilirubin Negative mg/dL (Negative) 07/05/20 23:10 Urine Urobilinogen Normal mg/dl (Normal) 07/05/20 23:10 Ur Leukocyte Esterase 25 /ul (Negative) H 07/05/20 23:10 Urine RBC 0-5 SEEN /hpf (0-5) 07/05/20 23:10 Urine WBC 0-5 SEEN /hpf (0-5) 07/05/20 23:10 Ur Squamous Epith Cells 0-5 SEEN /hpf (5-10) 07/05/20 23:10 Urine Bacteria 0 SEEN /hpf (None Seen) 07/05/20 23:10 Urine Mucus 0 SEEN /hpf (<or=2+) 07/05/20 23:10 Urine Opiates Screen NEGATIVE (< 300 ng/mL) 07/05/20 23:10 Urine Methadone Screen NEGATIVE (< 300 ng/mL) 07/05/20 23:10 Ur Barbiturates Screen NEGATIVE (< 200 ng/mL) 07/05/20 23:10 Ur Phencyclidine Scrn NEGATIVE (< 25 ng/mL) 07/05/20 23:10 Ur Amphetamines Screen NEGATIVE (<1000 ng/mL) 07/05/20 23:10 U Methamphetamin-MDMA NEGATIVE (< 500 ng/mL) 07/05/20 23:10 U Benzodiazepines Scrn NEGATIVE (< 200 ng/mL) 07/05/20 23:10 Urine Cocaine Screen NEGATIVE (< 300 ng/mL) 07/05/20 23:10 U Cannabinoids Screen NEGATIVE (< 50 ng/mL) 07/05/20 23:10 Ur Drug Screen Comment 07/05/20 23:10 Ethyl Alcohol < 3.0 mg/dL 07/05/20 23:16 - EKG Initial EKG Interpretation: Sinus Rhythm - EKG demonstrates a sinus rhythm with a rate of 78 without ectopy or concerning features of ACS - Medical Decision Making Patient is medically cleared for the opioid program. Her abdominal pain is chronic. Her labs are rather unremarkable. ED Disposition - Plan for ED Patient: Disposition: Home or Assisted Living Diagnosis: Opiate dependence, Chronic abdominal pain Referrals: Adri Anne MD [Primary Care Provider] -
[2020-07-05 23:14] LABS: Bacteria 0 SEEN /hpf (None Seen); Mucous, Urine 0 SEEN /hpf (<or=2+)
[2020-07-05 23:19] LABS: Color, Urine Yellow (Yellow); Glucose, Dipstick Normal (Normal); Ketone-Dipstick Negative (Negative); Leukocyte Esterase-Dipstick 25 /ul (Negative); Nitrite-Dipstick Negative (Negative); Occult Blood-Urine 25 /ul (Negative); Protein-Dipstick Negative (Negative); Specific Gravity, Urine 1.015 (1.002-1.030); Urine Bilirubin Dipstick Negative (Negative); Urine Clarity Sl. Cloudy (Clear); Urine Urobilinogen Normal (Normal)
[2020-07-05 23:22] LABS: Red Blood Cells-Urine 0-5 SEEN /hpf (0-5); Squamous Epithelial Cells - UA 0-5 SEEN /hpf (5-10); White Blood Cells 0-5 SEEN /hpf (0-5)
[2020-07-05 23:28] LABS: Amphetamine Urine VISTA NEGATIVE (<1000 ng/mL); Barbiturate Urine VISTA NEGATIVE (< 200 ng/mL); Benzodiazepine Urine VISTA NEGATIVE (< 200 ng/mL); Cocaine Urine VISTA NEGATIVE (< 300 ng/mL); Ecstacy Urine VISTA NEGATIVE (< 500 ng/mL); Methadone Urine VISTA NEGATIVE (< 300 ng/mL); PCP Urine VISTA NEGATIVE (< 25 ng/mL); THC Urine VISTA NEGATIVE (< 50 ng/mL); Vista UDS pH Range 7
[2020-07-05 23:29] LABS: Absolute Lymphocyte Count 2.75 X10^3/uL (0.83-4.51); Absolute Neutrophil Count 4.1 X10^3/uL (2.0-7.7); Basophil# 0.04 X10^3/uL; Basophil% 0.5 % (0-1); Eosinophil# 0.25 X10^3/uL; Eosinophils% 3.2 % (0-5); Hematocrit 41.2 % (37-47); Hemoglobin 13.6 g/dL (12.0-15.0); Lymphocyte # 2.75 X10^3/ul (4.0); Lymphocyte % 35.1 % (19-41); Mean Corpuscular Hgb 31.9 pg (27.0-32.0); Mean Corpuscular Volume 96.5 fL (81-99); Mean Platelet Vol. 9.5 fl (6.2-12.0); Monocyte# 0.62 X10^3/uL; Monocyte% 7.9 % (0-10); NRBC Flagged by Analyzer 0 % (0-5); Neutrophil # 4.11 X10^3/uL (2.7-7.7); Neutrophil % 52.5 % (47-70); Platelet Count 220 K/mm3 (150-450); RBC Distribution Width SD 46.3 fl (35.1-43.9); Red Blood Count 4.27 M/mm3 (4.2-5.4); White Blood Count 7.8 K/mm3 (4.4-11.0)
[2020-07-05 23:32] LABS: Prothrombin Time (Protime)PT. 12.8 SECONDS (11.7-14.9)
[2020-07-05 23:38] LABS: ALB/GLOB Ratio 0.8 RATIO (0.9-2.4); AST(SGOT) 14 U/L (15-37); Alanine Aminotransfer ALT/SGPT 13 U/L (13-56); Albumin, Serum 3.2 g/dL (3.2-5.0); Alkaline Phosphatase 146 U/L (45-117); Anion Gap 3 (5-15); BUN 19 mg/dL (7-18); BUN/Creat Ratio 23.4 RATIO (10-20); Calcium,Total 9.5 mg/dL (8.5-10.1); Chloride 110 mmol/L (98-107); Creatinine, Serum 0.81 mg/dL (0.55-1.02); EST Glomerular Filtration Rate 76 mL/min (>60); Est Glom Filt Rate - Afr Amer 92 mL/min (>60); Estimated Creatinine Clearance 66.55 ml/min; Globulin 3.8 g/dL (2.2-4.2); Glucose 99 mg/dL (74-106); Lipase 167 U/L (73-393); Potassium 3.7 mmol/L (3.5-5.1); Sodium Level 142 mmol/L (136-145)
[2020-07-05 23:43] LABS: Alcohol, Blood (Medical)-Serum < 3.0 mg/dL
[2020-07-06] VITALS (9 sets, daily range): BP systolic 85–173; BP diastolic 53–120; PULSE 54–74; RESP 16–18; TEMP 36.6–36.9; O2SAT 92–99; BMI 25.4
--- NOTE | 2020-07-06 00:02 | PCM.HP.STD ---
Problem List (1) Chronic abdominal pain Status: Chronic (2) Opiate dependence Status: Acute Qualifiers: Substance use status: with unspecified opioid-induced disorder Qualified Code(s): F11.29 - Opioid dependence with unspecified opioid-induced disorder (3) Opiate withdrawal Status: Acute (4) Essential hypertension Status: Chronic (5) Tobacco use Status: Chronic (6) EVELYN (obstructive sleep apnea) Status: Chronic (7) Obesity (BMI 30.0-34.9) Status: Chronic (8) TIA (transient ischemic attack) Status: Chronic Qualifiers: Transient cerebral ischemia type: unspecified Qualified Code(s): G45.9 - Transient cerebral ischemic attack, unspecified (9) GERD (gastroesophageal reflux disease) Status: Chronic Qualifiers: Esophagitis presence: esophagitis presence not specified Qualified Code(s): K21.9 - Gastro-esophageal reflux disease without esophagitis (10) Anxiety and depression Status: Chronic (11) NSTEMI (non-ST elevated myocardial infarction) Status: Chronic (12) Cardiomyopathy Status: Chronic Qualifiers: Cardiomyopathy type: unspecified Qualified Code(s): I42.9 - Cardiomyopathy, unspecified (13) Hyperlipidemia Status: Chronic Qualifiers: Hyperlipidemia type: unspecified Qualified Code(s): E78.5 - Hyperlipidemia, unspecified (14) Atherosclerotic heart disease of [place] coronary artery without angina pectoris Status: Chronic Qualifiers: [place] vs. transplanted heart: unspecified whether [place] or transplanted heart Qualified Code(s): I25.10 - Atherosclerotic heart disease of [place] coronary artery without angina pectoris Comment: Mild History of Present Illness Date of Admission: 07/06/20 Chief Complaint: desire for detoxification The patient is a 64 year old F chronic abdominal pain; and fentanyl abuse who came to emergency department for help with detoxification. Patient uses fentanyl daily. She snorts the fentanyl. The last time of use was a day before presentation. She follows up with [facility] and she was encouraged to come to emergency department for help with detoxification. She reports withdrawal symptoms of generalized body pains, nausea, vomiting, vertigo leading to a fall and syncope. Of note patient was admitted on 06/03/2020 and discharged on 06/06/2020 with opioid dependence, withdrawal and otitis media. Past Medical History Past Medical History (Chronic Problems): Chronic Problems (Last Reviewed 07/06/20 @ 00:[address] Thor Daniel MD) Chronic abdominal pain (Chronic) Essential hypertension (Chronic) Tobacco use (Chronic) EVELYN (obstructive sleep apnea) (Chronic) Obesity (BMI 30.0-34.9) (Chronic) TIA (transient ischemic attack) (Chronic) GERD (gastroesophageal reflux disease) (Chronic) Anxiety and depression (Chronic) NSTEMI (non-ST elevated myocardial infarction) (Chronic) Cardiomyopathy (Chronic) Hyperlipidemia (Chronic) Atherosclerotic heart disease of [place] coronary artery without angina pectoris (Chronic) Mild Medical History: Medical History (Last Reviewed 07/06/20 @ 01:[address] Thor Daniel MD) Essential hypertension (Chronic) I10 Cardiomyopathy (Chronic) I42.9 Hyperlipidemia (Chronic) E78.5 Atherosclerotic heart disease of [place] coronary artery without angina pectoris (Chronic) I25.10 Mild COPD (chronic obstructive pulmonary disease) J44.9 Calculus of left kidney N20.0 GERD (gastroesophageal reflux disease) K21.9 Personal history of transient ischemic attack (TIA), and cerebral infarction without residual deficits Z86.73 Tobacco abuse Z72.0 Hypertension (Inactive) I10 Allergies No Known Allergies Allergy (Verified 07/05/20 22:53) Home Medications: Ambulatory Orders Medication Instructions Recorded Aspirin E.C. [Ecotrin] 81 mg PO DAILY 07/21/18 Omeprazole [Prilosec] 40 mg PO DAILY 12/24/18 proMETHazine tablet [Phenergan 25 mg PO Q4H PRN PRN #20 tab 12/24/18 tablet] Ondansetron [Zofran Odt] 4 mg PO Q8H PRN PRN #10 tab 01/09/20 Gabapentin [Neurontin] 300 mg PO TID 06/05/20 Venlafaxine XR [Effexor Xr] 150 mg PO DAILY 06/05/20 Clonazepam [Klonopin] 0.5 mg PO DAILY #0 06/06/20 Lactobacillus rhamnosus GG 10 1 cap PO DAILY #90 cap 06/08/20 billion cell capsule lisinopril 10 mg tablet 10 mg PO DAILY #90 tab 06/08/20 carvedilol 12.5 mg tablet 12.5 mg PO BID #180 tab 07/02/20 Surgical History: Surgical History (Last Reviewed 07/06/20 @ 00:[address] 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 Thor Daniel MD) Mother Hypertension CAD (coronary artery disease) CVA (cerebral vascular accident) Myocardial infarction Grandmother Myocardial infarction History Items: High Cholesterol, Heart Disease, Hypertension, Stroke Paternal Family History: Family History (Last Reviewed 07/06/20 @ 00:[address] Thor Daniel MD) Mother Hypertension CAD (coronary artery disease) CVA (cerebral vascular accident) Myocardial infarction Grandmother Myocardial infarction History Items: - - Patient states she does not know any of her father's history. Review of Systems Constitutional: Denies: Chills, Fever, Weight Change HEENT: Denies: Head Aches, Sinus Congestion, Sinus Drainage Cardiovascular: Reports: Syncope. Denies: Chest Pain, Palpitations Respiratory: Denies: Cough, Shortness of breath at rest, Sputum production Gastrointestinal: Reports: Nausea, Vomiting. Denies: Abdominal Pain Genitourinary: Denies: Dysuria Musculoskeletal: Reports: Muscle pain. Denies: Joint Pain, Joint Tenderness Skin: Denies: Rash, Wounds Neurological: Denies: Numbness, Tingling, Focal weakness Psychiatric: Denies: Anxiety, Depression, Homicidal Ideations, Suicidal Ideations Hematologic/ Lymphatic: Denies: Easy Bruising, Easy Bleeding VTE Information - Inpt Only VTE Present on Admission: No VTE Mechan Device Prophylaxis: SCD's VTE Pharm Prophylaxis ordered?: No Patient Problems: Active and Suspected Problems (Last Reviewed 07/06/20 @ 00:[address] Thor Daniel MD) Opiate dependence (Acute) Opiate withdrawal (Acute) - Physical Exam Vitals/I&O's: Vital Signs Temp Pulse Resp BP Pulse Ox 97.3 F L 74 16 173/92 H 95 07/05/20 22:50 07/06/20 00:00 07/06/20 00:00 07/06/20 00:00 07/06/20 00:00 Oxygen Delivery Method Room Air Weight: 72.575 kg Body Mass Index (BMI) 25.8 Finger Stick Blood Glucose 76 General: Alert, Oriented x3, Cooperative HEENT: Atraumatic, PERRLA, EOMI, Normocephalic Oral: - - Edentulous Neck: Supple, No JVD, Negative Carotid Bruits Lungs: Clear to auscultation, Normal air movement Cardiovascular: Regular rate, Regular Rhythm, Normal S1, Normal S2, No murmurs Abdomen: Bowel Sounds Present, Soft, Non Tender Extremities: No edema, Capillary Refill Less than 3 Seconds Skin: No rashes, No breakdown Musculoskeletal: No Tenderness to Palpation of Joints or Extremities Neurological: Cranial nerves II-XII grossly intact Psych/Mental Status: Normal Affect, Appropriate Laboratory Results 07/05/20 23:10: Urine Opiates Screen NEGATIVE, Urine Methadone Screen NEGATIVE, Ur Barbiturates Screen NEGATIVE, Ur Phencyclidine Scrn NEGATIVE, Ur Amphetamines Screen NEGATIVE, U Methamphetamin-MDMA NEGATIVE, U Benzodiazepines Scrn NEGATIVE, Urine Cocaine Screen NEGATIVE, U Cannabinoids Screen NEGATIVE, Ur Drug Screen Comment 07/05/20 23:10: Urine Color Yellow, Urine Clarity Sl. Cloudy, Urine pH 8.0, Ur Specific [place] 1.015, Urine Protein Negative, Urine Glucose (UA) Normal, Urine Ketones Negative, Urine Occult Blood 25 H, Urine Nitrite Negative, Urine Bilirubin Negative, Urine Urobilinogen Normal, Ur Leukocyte Esterase 25 H, Urine RBC 0-5 SEEN, Urine WBC 0-5 SEEN, Ur Squamous Epith Cells 0-5 SEEN, Urine Bacteria 0 SEEN, Urine Mucus 0 SEEN 07/05/20 23:16: WBC 7.8, RBC 4.27, Hgb 13.6, Hct 41.2, MCV 96.5, MCH 31.9, MCHC 33.0, RDW Std Deviation 46.3 H, RDW Coeff of Saria[place] 13.0, Plt Count 220, MPV 9.5, Immature Gran % (Auto) 0.800, Neut % (Auto) 52.5, Lymph % (Auto) 35.1, [place] % (Auto) 7.9, Eos % (Auto) 3.2, Baso % (Auto) 0.5, Absolute Neuts (auto) 4.1, Absolute Lymphs (auto) 2.75, Nucleated RBC % 0 07/05/20 23:16: PT 12.8, INR 1.0 07/05/20 23:16: Sodium 142, Potassium 3.7, Chloride 110 H, Carbon Dioxide 29.0, Anion Gap 3 L, BUN 19 H, Creatinine 0.81, Estim Creat Clear Calc 66.55, Est GFR (MDRD) Af Amer 92, Est GFR (MDRD) Non-Af 76, BUN/Creatinine Ratio 23.4 H, Glucose 99, Calcium 9.5, Total Bilirubin 0.30, AST 14 L, ALT 13, Alkaline Phosphatase 146 H, Total Protein 7.0, Albumin 3.2, Globulin 3.8, Albumin/Globulin Ratio 0.8 L, Lipase 167 07/05/20 23:16: Ethyl Alcohol < 3.0 Assessment/Plan All Active Problems (Last Reviewed 07/06/20 @ 00:[address] Thor Daniel MD) Opiate dependence (Acute) Opiate withdrawal (Acute) Opiate dependence and withdrawal We will put on buprenorphine taper and other adjunctive medications. Elevated alkaline phosphatase Chronic. Discussed with patient and encouraged to follow-up with PCP Tobacco abuse Counseled Nicotine patch prescribed. DVT prophylaxis Low risk. Encourage to ambulate. SCD ordered. Inpatient E&M: 96033 Init Hosp L2
[2020-07-06] MEDS: Buprenorphine HCl 2 MG TAB.SUBL SL ×3 (01:27→17:56)
[2020-07-06] MEDS: Methocarbamol 750 MG Tablet 1500 MG PO ×2 (01:35→13:08)
[2020-07-06] MEDS: Dicyclomine 10 MG Capsule 20 MG PO ×2 (01:35→17:55)
[2020-07-06] MEDS: Gabapentin 300 MG Capsule PO ×3 (06:51→22:33)
[2020-07-06] MEDS: Ondansetron 8 MG Tablet PO (06:55)
[2020-07-06] MEDS: Aspirin E.C. 81 MG Tablet PO (07:52)
[2020-07-06] MEDS: Carvedilol 12.5 MG Tablet PO ×2 (07:53→17:56)
[2020-07-06] MEDS: Venlafaxine XR 150 MG Capsule PO (07:53)
[2020-07-06] MEDS: Pantoprazole Sodium 40 MG Tablet PO (07:53)
[2020-07-06] MEDS: Lisinopril 10 MG Tablet PO (07:53)
--- NOTE | 2020-07-06 09:26 | NURSING ---
denies need med for pain, abd pain, or restless legs or nausea at this time.
--- NOTE | 2020-07-06 10:00 | PN_ITS ---
Patient Problems: Active and Suspected Problems (Last Reviewed 07/06/20 @ 01:[address] Thor Daniel MD) Opiate dependence (Acute) Opiate withdrawal (Acute) Subjective: Tolerating Subutex taper. No issues overnight. Vitals/I&O's: Vital Signs Temp Pulse Resp BP Pulse Ox 98.1 F 61 16 125/85 H 93 07/06/20 07:46 07/06/20 07:46 07/06/20 07:46 07/06/20 07:46 07/06/20 07:46 Oxygen Delivery Method Room Air Weight: 157 lb 10.088 oz Body Mass Index (BMI) 25.4 Finger Stick Blood Glucose 76 Intake and Output for Last 24 Hours 07/04/20 07/05/20 07/06/20 23:59 23:59 23:59 Intake Total 600 / 600 Output Total 200 / 200 Balance 400 / 400 General: Alert, Oriented x3, Cooperative, No apparent distress HEENT: Atraumatic, PERRLA, EOMI, Normocephalic Oral: Moist Mucosa Neck: Supple, No JVD Lungs: Clear to auscultation, Normal air movement, No rhonchi, No wheeze, No rales, Diminished Cardiovascular: Regular rate, Regular Rhythm, Normal S1, Normal S2, No murmurs Abdomen: Soft, Non Tender, Non-Distended, No Hepato-splenomegaly Extremities: No edema, Capillary Refill Less than 3 Seconds Skin: No rashes, No breakdown Neurological: Neuro grossly intact, Sensory exam intact to light touch and pain Psych/Mental Status: Normal Affect, Appropriate Laboratory Results 07/05/20 23:10: Urine Opiates Screen NEGATIVE, Urine Methadone Screen NEGATIVE, Ur Barbiturates Screen NEGATIVE, Ur Phencyclidine Scrn NEGATIVE, Ur Amphetamines Screen NEGATIVE, U Methamphetamin-MDMA NEGATIVE, U Benzodiazepines Scrn NEGATIVE, Urine Cocaine Screen NEGATIVE, U Cannabinoids Screen NEGATIVE, Ur Drug Screen Comment 07/05/20 23:10: Urine Color Yellow, Urine Clarity Sl. Cloudy, Urine pH 8.0, Ur Specific [place] 1.015, Urine Protein Negative, Urine Glucose (UA) Normal, Urine Ketones Negative, Urine Occult Blood 25 H, Urine Nitrite Negative, Urine Bilirubin Negative, Urine Urobilinogen Normal, Ur Leukocyte Esterase 25 H, Urine RBC 0-5 SEEN, Urine WBC 0-5 SEEN, Ur Squamous Epith Cells 0-5 SEEN, Urine Bacteria 0 SEEN, Urine Mucus 0 SEEN 07/05/20 23:16: WBC 7.8, RBC 4.27, Hgb 13.6, Hct 41.2, MCV 96.5, MCH 31.9, MCHC 33.0, RDW Std Deviation 46.3 H, RDW Coeff of [place] 13.0, Plt Count 220, MPV 9.5, Immature Gran % (Auto) 0.800, Neut % (Auto) 52.5, Lymph % (Auto) 35.1, [place] % (Auto) 7.9, Eos % (Auto) 3.2, Baso % (Auto) 0.5, Absolute Neuts (auto) 4.1, Absolute Lymphs (auto) 2.75, Nucleated RBC % 0 07/05/20 23:16: PT 12.8, INR 1.0 07/05/20 23:16: Sodium 142, Potassium 3.7, Chloride 110 H, Carbon Dioxide 29.0, Anion Gap 3 L, BUN 19 H, Creatinine 0.81, Estim Creat Clear Calc 66.55, Est GFR (MDRD) Af Amer 92, Est GFR (MDRD) Non-Af 76, BUN/Creatinine Ratio 23.4 H, Glucose 99, Calcium 9.5, Total Bilirubin 0.30, AST 14 L, ALT 13, Alkaline Phosphatase 146 H, Total Protein 7.0, Albumin 3.2, Globulin 3.8, Albumin/Globulin Ratio 0.8 L, Lipase 167 07/05/20 23:16: Ethyl Alcohol < 3.0 Current Medications Aspirin (Aspirin E.C. 81 Mg Tablet) 81 mg PO DAILY@0800 [facility] Last Admin: 07/06/20 07:52 Dose: 81 mg Documented by: Buprenorphine HCl (Buprenorphine Hcl 2 Mg Tab.Subl) 4 mg SL Q8H [facility]; Taper Stop: 07/09/20 01:29 Last Admin: 07/06/20 09:27 Dose: 4 mg Documented by: Carvedilol (Carvedilol 12.5 Mg Tablet) 12.5 mg PO BIDCM [facility] Last Admin: 07/06/20 07:53 Dose: 12.5 mg Documented by: Clonidine (Clonidine Hcl 0.1 Mg Tablet) 0.1 mg PO Q8H PRN PRN PRN Reason: RESTLESSNESS Dicyclomine HCl (Dicyclomine 10 Mg Capsule) 20 mg PO Q6H PRN PRN PRN Reason: Abdominal Discomfort Last Admin: 07/06/20 01:35 Dose: 20 mg Documented by: Gabapentin (Gabapentin 300 Mg Capsule) 300 mg PO TID [facility] Last Admin: 07/06/20 06:51 Dose: 300 mg Documented by: Hydroxyzine Pamoate (Hydroxyzine [place] 25 Mg Capsule) 50 mg PO Q6H PRN PRN PRN Reason: mild anxiety Lactobacillus Acidophilus (Lactobacillus Acidophilus) 1 tablet PO DAILY [facility] Last Admin: 07/06/20 07:53 Dose: 1 tablet Documented by: Lisinopril (Lisinopril 10 Mg Tablet) 10 mg PO DAILY [facility] Last Admin: 07/06/20 07:53 Dose: 10 mg Documented by: Loperamide HCl (Loperamide 2 Mg Capsule) 2 mg PO Q4H PRN PRN PRN Reason: LOOSE STOOLS Methocarbamol (Methocarbamol 750 Mg Tablet) 1,500 mg PO Q6H PRN PRN PRN Reason: MUSCLE SPASM Last Admin: 07/06/20 01:35 Dose: 1,500 mg Documented by: Nicotine (Nicotine 14 Mg Patch) 14 mg TRANSDERM. DAILY [facility] Last Admin: 07/06/20 07:52 Dose: 14 mg Documented by: Ondansetron HCl (Ondansetron 8 Mg Tablet) 8 mg PO Q8H PRN PRN PRN Reason: NAUSEA Last Admin: 07/06/20 06:55 Dose: 8 mg Documented by: Pantoprazole Sodium (Pantoprazole Sodium 40 Mg Tablet) 40 mg PO DAILY [facility] Last Admin: 07/06/20 07:53 Dose: 40 mg Documented by: Trazodone HCl (Trazodone 100 Mg Tablet) 100 mg PO QHS PRN PRN PRN Reason: INSOMNIA Venlafaxine HCl (Venlafaxine Xr 150 Mg Capsule) 150 mg PO DAILY [facility] Last Admin: 07/06/20 07:53 Dose: 150 mg Documented by: STROKE Vital Signs/Narrative: Vital Signs Temp Pulse Resp BP Pulse Ox 07/06/20 07:46 98.1 F 61 16 125/85 H 93 07/06/20 07:20 92 Medical Necessity - Tobacco Use Smoking Status: Current every day smoker Tobacco Use: Cigarettes Assessment/Plan All Active Problems (Last Reviewed 07/06/20 @ 01:[address] Thor Daniel MD) Opiate dependence (Acute) Opiate withdrawal (Acute) 1. Opiate withdrawal/anxiety/depression -Chronic pain was on morphine for her back pain and then she was cut off and somebody else gave her fentanyl which she got addicted to. -Continue with the opiate withdrawal protocol -She will have to follow-up with 180 as an outpatient -Continue with Effexor, gabapentin, clonazepam 2. HTN/HLD -Blood pressure is stable -Continue with her Coreg, aspirin, lisinopril 3. GERD -Stable -Continue with PPI DVT: SCDs
--- NOTE | 2020-07-06 10:57 | ADDICTION ---
This writer technical publications met with patient, in her room, to conduct ASAM, MSE and DUDIT assessments and to plan for discharge. Patient was cooperative. She is appropraite for the 4.0 LOC as evidenced by severe withdrawal symptoms and significant BMC/C. She refused residential recommendation but is willing to speak with her primary counselor about Intensive Outpatient. She has an appointment scheduled with Jaylan on 07/10 at 1pm. This writer technical publications will fax completed documentation to [facility].
[2020-07-06] MEDS: clonazePAM 0.5 MG Tablet PO (17:56)
[2020-07-06] MEDS: cloNIDine HCl 0.1 MG Tablet PO (22:31)
[2020-07-07] MEDS: Buprenorphine HCl 2 MG TAB.SUBL SL ×3 (02:30→17:17)
[2020-07-07 02:51] VITALS: BP 98/56; PULSE 61; RESP 18; TEMP 36.6; O2SAT 92
[2020-07-07] MEDS: Methocarbamol 750 MG Tablet 1500 MG PO ×2 (03:02→22:11)
[2020-07-07] MEDS: Dicyclomine 10 MG Capsule 20 MG PO ×2 (03:02→22:11)
[2020-07-07] MEDS: Gabapentin 300 MG Capsule PO ×3 (06:18→22:11)
[2020-07-07 08:02] VITALS: BP 95/51; PULSE 56; PULSE 60; RESP 16; TEMP 36.8; O2SAT 97
[2020-07-07 09:08] VITALS: O2SAT 92
[2020-07-07] MEDS: Pantoprazole Sodium 40 MG Tablet PO (09:24)
[2020-07-07] MEDS: Aspirin E.C. 81 MG Tablet PO (09:24)
[2020-07-07] MEDS: Venlafaxine XR 150 MG Capsule PO (09:24)
[2020-07-07 11:25] VITALS: BP 97/60; PULSE 56; RESP 16; TEMP 36.9; O2SAT 96
[2020-07-07] MEDS: Polyethylene Glycol 3350 17 GM PACKET PO (11:27)
[2020-07-07] MEDS: clonazePAM 0.5 MG Tablet PO ×2 (11:30→22:11)
--- NOTE | 2020-07-07 13:45 | PN_ITS ---
Patient Problems: Active and Suspected Problems (Last Reviewed 07/06/20 @ 01:[address] Thor Daneil MD) Opiate dependence (Acute) Opiate withdrawal (Acute) Subjective: Doing well. No issues overnight Vitals/I&O's: Vital Signs Temp Pulse Resp BP Pulse Ox 98.5 F 56 L 16 97/60 96 07/07/20 11:25 07/07/20 11:25 07/07/20 11:25 07/07/20 11:25 07/07/20 11:25 Oxygen Delivery Method Room Air Weight: 157 lb 10.088 oz Body Mass Index (BMI) 25.4 Finger Stick Blood Glucose 76 Intake and Output for Last 24 Hours 07/05/20 07/06/20 07/07/20 23:59 23:59 23:59 Intake Total 1100 / 1100 Output Total 200 / 200 Balance 900 / 900 General: Alert, Oriented x3, Cooperative, No apparent distress HEENT: Atraumatic, PERRLA, EOMI, Normocephalic Oral: Moist Mucosa Neck: Supple, No JVD Lungs: Clear to auscultation, Normal air movement, No rhonchi, No wheeze, No rales, Diminished Cardiovascular: Regular rate, Regular Rhythm, Normal S1, Normal S2, No murmurs Abdomen: Soft, Non Tender, Non-Distended, No Hepato-splenomegaly Extremities: No edema, Capillary Refill Less than 3 Seconds Skin: No rashes, No breakdown Neurological: Neuro grossly intact, Sensory exam intact to light touch and pain Psych/Mental Status: Normal Affect, Appropriate Current Medications Aspirin (Aspirin E.C. 81 Mg Tablet) 81 mg PO DAILY@0800 [facility] Last Admin: 07/07/20 09:24 Dose: 81 mg Documented by: Buprenorphine HCl (Buprenorphine Hcl 2 Mg Tab.Subl) 2 mg SL Q8H [facility]; Taper Stop: 07/09/20 01:29 Last Admin: 07/07/20 09:24 Dose: 2 mg Documented by: Carvedilol (Carvedilol 12.5 Mg Tablet) [facility] Last Admin: 07/07/20 11:27 Dose: Not Given Documented by: Clonazepam (Clonazepam 0.5 Mg Tablet) 0.5 mg PO BID PRN PRN Reason: ANXIETY Last Admin: 07/07/20 11:30 Dose: 0.5 mg Documented by: Clonidine (Clonidine Hcl 0.1 Mg Tablet) 0.1 mg PO Q8H PRN PRN PRN Reason: RESTLESSNESS Last Admin: 07/06/20 22:31 Dose: 0.1 mg Documented by: Dicyclomine HCl (Dicyclomine 10 Mg Capsule) 20 mg PO Q6H PRN PRN PRN Reason: Abdominal Discomfort Last Admin: 07/07/20 03:02 Dose: 20 mg Documented by: Gabapentin (Gabapentin 300 Mg Capsule) 300 mg PO TID [facility] Last Admin: 07/07/20 13:22 Dose: 300 mg Documented by: Hydroxyzine Pamoate (Hydroxyzine Kelsey 25 Mg Capsule) 50 mg PO Q6H PRN PRN PRN Reason: mild anxiety Lactobacillus Acidophilus (Lactobacillus Acidophilus) 1 tablet PO DAILY [facility] Last Admin: 07/07/20 09:24 Dose: 1 tablet Documented by: Lisinopril (Lisinopril 10 Mg Tablet) 10 mg PO DAILY [facility] Last Admin: 07/07/20 11:27 Dose: Not Given Documented by: Loperamide HCl (Loperamide 2 Mg Capsule) 2 mg PO Q4H PRN PRN PRN Reason: LOOSE STOOLS Methocarbamol (Methocarbamol 750 Mg Tablet) 1,500 mg PO Q6H PRN PRN PRN Reason: MUSCLE SPASM Last Admin: 07/07/20 03:02 Dose: 1,500 mg Documented by: Nicotine (Nicotine 14 Mg Patch) 14 mg TRANSDERM. DAILY [facility] Last Admin: 07/07/20 09:24 Dose: 14 mg Documented by: Ondansetron HCl (Ondansetron 8 Mg Tablet) 8 mg PO Q8H PRN PRN PRN Reason: NAUSEA Last Admin: 07/06/20 06:55 Dose: 8 mg Documented by: Pantoprazole Sodium (Pantoprazole Sodium 40 Mg Tablet) 40 mg PO DAILY [facility] Last Admin: 07/07/20 09:24 Dose: 40 mg Documented by: Polyethylene Glycol (Polyethylene Glycol 3350 17 Gm Packet) 17 gm PO DAILY [facility] Last Admin: 07/07/20 11:27 Dose: 17 gm Documented by: Trazodone HCl (Trazodone 100 Mg Tablet) 100 mg PO QHS PRN PRN PRN Reason: INSOMNIA Venlafaxine HCl (Venlafaxine Xr 150 Mg Capsule) 150 mg PO DAILY [facility] Last Admin: 07/07/20 09:24 Dose: 150 mg Documented by: STROKE Vital Signs/Narrative: Vital Signs Temp Pulse Resp BP Pulse Ox 07/07/20 11:25 98.5 F 56 L 16 97/60 96 Medical Necessity - Tobacco Use Smoking Status: Current every day smoker Tobacco Use: Cigarettes Assessment/Plan All Active Problems (Last Reviewed 07/06/20 @ 01:[address] Thor Daniel MD) Opiate dependence (Acute) Opiate withdrawal (Acute) 1. Opiate withdrawal/anxiety/depression -Chronic pain was on morphine for her back pain and then she was cut off and somebody else gave her fentanyl which she got addicted to. -Continue with the opiate withdrawal protocol -She will have to follow-up with 180 as an outpatient -Continue with Effexor, gabapentin, clonazepam 2. HTN/HLD -Blood pressure is stable -Continue with her Coreg, aspirin, lisinopril 3. GERD -Stable -Continue with PPI DVT: SCDs Inpatient E&M: 91726 Subs Hosp L2
[2020-07-07 15:18] VITALS: BP 108/51; PULSE 64; RESP 16; TEMP 37.1; O2SAT 94
[2020-07-07] MEDS: Carvedilol 12.5 MG Tablet PO (17:17)
[2020-07-07 22:09] VITALS: BP 111/60; PULSE 68; RESP 18; TEMP 37; O2SAT 96
[2020-07-07] MEDS: Ondansetron 8 MG Tablet PO (22:11)
[2020-07-07] MEDS: traZODone 100 MG Tablet PO (22:11)
[2020-07-08] MEDS: Buprenorphine HCl 2 MG TAB.SUBL SL ×2 (01:35→13:10)
[2020-07-08 02:18] VITALS: BP 104/64; PULSE 87; RESP 17; TEMP 36.7; O2SAT 94
[2020-07-08] MEDS: Gabapentin 300 MG Capsule PO ×2 (05:49→13:23)
[2020-07-08] MEDS: Dicyclomine 10 MG Capsule 20 MG PO (05:49)
[2020-07-08 08:18] VITALS: BP 110/53; PULSE 66; RESP 16; TEMP 37.1; O2SAT 92
[2020-07-08] MEDS: Carvedilol 12.5 MG Tablet PO (08:32)
[2020-07-08] MEDS: Aspirin E.C. 81 MG Tablet PO (08:32)
[2020-07-08] MEDS: Pantoprazole Sodium 40 MG Tablet PO (08:33)
[2020-07-08] MEDS: Polyethylene Glycol 3350 17 GM PACKET PO (08:33)
[2020-07-08] MEDS: Venlafaxine XR 150 MG Capsule PO (08:33)
[2020-07-08 11:43] VITALS: BP 105/54; PULSE 52; RESP 18; TEMP 37.1; O2SAT 96
--- NOTE | 2020-07-08 13:08 | PCM.DC ---
- Discharge Diagnoses Current Active Problems: Current Active and Chronic Problems (Last Reviewed 07/06/20 @ 01:[address] Thor Daniel MD) Chronic abdominal pain (Chronic) Opiate dependence (Acute) Opiate withdrawal (Acute) Essential hypertension (Chronic) Tobacco use (Chronic) EVELYN (obstructive sleep apnea) (Chronic) Obesity (BMI 30.0-34.9) (Chronic) TIA (transient ischemic attack) (Chronic) GERD (gastroesophageal reflux disease) (Chronic) Anxiety and depression (Chronic) NSTEMI (non-ST elevated myocardial infarction) (Chronic) Cardiomyopathy (Chronic) Hyperlipidemia (Chronic) Atherosclerotic heart disease of [place] coronary artery without angina pectoris (Chronic) Mild You will use the following diet at home:: Cardiac Your food should be the consistency of: Regular Your liquids should be the consistency of: Regular/Thin Discharge Activity: Return to Normal Activity Call your doctor if you observe: Fever of 101 or Higher, Shortness of breath, Dizziness, Fainting spells, Swelling in the ankles, Chest pain, Increased palpitations (irregular heartbeat) Allergies/Adverse Reactions: Allergies No Known Allergies Allergy (Verified 07/05/20 22:53) Medications to take at Discharge Aspirin E.C. [Ecotrin] 81 mg PO DAILY 07/21/18 Omeprazole [Prilosec] 40 mg PO DAILY 12/24/18 proMETHazine tablet [Phenergan tablet] 25 mg PO Q4H PRN PRN #20 tab 12/24/18 Ondansetron [Zofran Odt] 4 mg PO Q8H PRN PRN #10 tab 01/09/20 Gabapentin [Neurontin] 300 mg PO TID 06/05/20 Venlafaxine XR [Effexor Xr] 150 mg PO DAILY 06/05/20 Clonazepam [Klonopin] 0.5 mg PO DAILY #0 06/06/20 Lactobacillus rhamnosus GG 10 billion cell capsule 1 cap PO DAILY #90 cap 06/08/20 lisinopril 10 mg tablet 10 mg PO DAILY #90 tab 06/08/20 carvedilol 12.5 mg tablet 12.5 mg PO BID #180 tab 07/02/20 Primary Care Physician: Adri Anne MD [Primary Care Provider] - Please follow up with your Primary Care Physician in: 3-5 days Test Results: Test results from this visit will be discussed in further detail at your follow-up appointment, if applicable. Please Follow Up With: 180 When: When scheduled
--- NOTE | 2020-07-08 13:58 | DS.PCM_ITS ---
Discharge Date and Diagnosis - Problem List Patient Problems: Active and Suspected Problems (Last Reviewed 07/06/20 @ 01:[address] Thor Daniel MD) Opiate dependence (Acute) Opiate withdrawal (Acute) Date of Admission: 07/06/20 Date of Discharge: 07/08/20 - Primary Discharge Diagnosis Acute Problems: Active Problems (Last Reviewed 07/06/20 @ 01:[address] Thor Daniel MD) Opiate dependence (Acute) Opiate withdrawal (Acute) - Secondary Discharge Diagnosis Chronic Problems: Chronic Problems (Last Reviewed 07/06/20 @ 01:[address] Thor Daniel MD) Chronic abdominal pain (Chronic) Essential hypertension (Chronic) Tobacco use (Chronic) EVELYN (obstructive sleep apnea) (Chronic) Obesity (BMI 30.0-34.9) (Chronic) TIA (transient ischemic attack) (Chronic) GERD (gastroesophageal reflux disease) (Chronic) Anxiety and depression (Chronic) NSTEMI (non-ST elevated myocardial infarction) (Chronic) Cardiomyopathy (Chronic) Hyperlipidemia (Chronic) Atherosclerotic heart disease of [place] coronary artery without angina pectoris (Chronic) Mild Hospital Course and Treatment Operations: None Procedures: None Summary of Care Provided: PEr HPI: The patient is a 64 year old F chronic abdominal pain; and fentanyl abuse who came to emergency department for help with detoxification. Patient uses fentanyl daily. She snorts the fentanyl. The last time of use was a day before presentation. She follows up with 180 and she was encouraged to come to emergency department for help with detoxification. She reports withdrawal symptoms of generalized body pains, nausea, vomiting, vertigo leading to a fall and syncope. Of note patient was admitted on 06/03/2020 and discharged on 06/06/2020 with opioid dependence, withdrawal and otitis media. Hospital Course: 1. Opiate withdrawal/anxiety/depression -Chronic pain was on morphine for her back pain and then she was cut off and somebody else gave her fentanyl which she got addicted to. -Continue with the opiate withdrawal protocol -She will have to follow-up with 180 as an outpatient -Continue with Effexor, gabapentin, clonazepam -She completed the opiate withdrawal protocol well. I discussed with her the plan for discharge today, she expressed understanding the risk and benefits of going home and would like to go home today. 2. HTN/HLD -Blood pressure is stable -Continue with her Coreg, aspirin, lisinopril 3. GERD -Stable -Continue with PPI Patient Problems: Active and Suspected Problems (Last Reviewed 07/06/20 @ 01:[address] Thor Daniel MD) Opiate dependence (Acute) Opiate withdrawal (Acute) - Physical Exam Vitals/I&O's: Vital Signs Temp Pulse Resp BP Pulse Ox 98.8 F 52 L 18 105/54 L 96 07/08/20 11:43 07/08/20 11:43 07/08/20 11:43 07/08/20 11:43 07/08/20 11:43 Oxygen Delivery Method Room Air Weight: 157 lb 10.088 oz Body Mass Index (BMI) 25.4 Finger Stick Blood Glucose 76 Intake and Output for Last 24 Hours 07/06/20 07/07/20 07/08/20 23:59 23:59 22:59 Intake Total 1100 / 1100 775 / 775 Output Total 200 / 200 Balance 900 / 900 775 / 775 General: Alert, Oriented x3, Cooperative, No apparent distress HEENT: Atraumatic, PERRLA, EOMI, Normocephalic Oral: Moist Mucosa Neck: Supple, No JVD Lungs: Clear to auscultation, Normal air movement, No rhonchi, No wheeze, No rales, Diminished Cardiovascular: Regular rate, Regular Rhythm, Normal S1, Normal S2, No murmurs Abdomen: Soft, Non Tender, Non-Distended, No Hepato-splenomegaly Extremities: No edema, Capillary Refill Less than 3 Seconds Skin: No rashes, No breakdown Neurological: Neuro grossly intact, Sensory exam intact to light touch and pain Psych/Mental Status: Normal Affect, Appropriate Current Medications Aspirin (Aspirin E.C. 81 Mg Tablet) 81 mg PO DAILY@0800 [facility] Last Admin: 07/08/20 08:32 Dose: 81 mg Documented by: Buprenorphine HCl (Buprenorphine Hcl 2 Mg Tab.Subl) 2 mg SL Q12H [facility]; Taper Stop: 07/09/20 01:29 Last Admin: 07/08/20 13:10 Dose: 2 mg Documented by: Carvedilol (Carvedilol 12.5 Mg Tablet) 12.5 mg PO BIDCM [facility] Last Admin: 07/08/20 08:32 Dose: 12.5 mg Documented by: Clonazepam (Clonazepam 0.5 Mg Tablet) 0.5 mg PO BID PRN PRN Reason: ANXIETY Last Admin: 07/07/20 22:11 Dose: 0.5 mg Documented by: Clonidine (Clonidine Hcl 0.1 Mg Tablet) 0.1 mg PO Q8H PRN PRN PRN Reason: RESTLESSNESS Last Admin: 07/06/20 22:31 Dose: 0.1 mg Documented by: Dicyclomine HCl (Dicyclomine 10 Mg Capsule) 20 mg PO Q6H PRN PRN PRN Reason: Abdominal Discomfort Last Admin: 07/08/20 05:49 Dose: 20 mg Documented by: Gabapentin (Gabapentin 300 Mg Capsule) 300 mg PO TID [facility] Last Admin: 07/08/20 13:23 Dose: 300 mg Documented by: Hydroxyzine Pamoate (Hydroxyzine Kelsey 25 Mg Capsule) 50 mg PO Q6H PRN PRN PRN Reason: mild anxiety Lactobacillus Acidophilus (Lactobacillus Acidophilus) 1 tablet PO DAILY [facility] Last Admin: 07/08/20 08:33 Dose: 1 tablet Documented by: Lisinopril (Lisinopril 10 Mg Tablet) 10 mg PO DAILY [facility] Last Admin: 07/08/20 11:45 Dose: Not Given Documented by: Loperamide HCl (Loperamide 2 Mg Capsule) 2 mg PO Q4H PRN PRN PRN Reason: LOOSE STOOLS Methocarbamol (Methocarbamol 750 Mg Tablet) 1,500 mg PO Q6H PRN PRN PRN Reason: MUSCLE SPASM Last Admin: 07/07/20 22:11 Dose: 1,500 mg Documented by: Nicotine (Nicotine 14 Mg Patch) 14 mg TRANSDERM. DAILY [facility] Last Admin: 07/08/20 08:29 Dose: Not Given Documented by: Ondansetron HCl (Ondansetron 8 Mg Tablet) 8 mg PO Q8H PRN PRN PRN Reason: NAUSEA Last Admin: 07/07/20 22:11 Dose: 8 mg Documented by: Pantoprazole Sodium (Pantoprazole Sodium 40 Mg Tablet) 40 mg PO DAILY [facility] Last Admin: 07/08/20 08:33 Dose: 40 mg Documented by: Polyethylene Glycol (Polyethylene Glycol 3350 17 Gm Packet) 17 gm PO DAILY [facility] Last Admin: 07/08/20 08:33 Dose: 17 gm Documented by: Trazodone HCl (Trazodone 100 Mg Tablet) 100 mg PO QHS PRN PRN PRN Reason: INSOMNIA Last Admin: 07/07/20 22:11 Dose: 100 mg Documented by: Venlafaxine HCl (Venlafaxine Xr 150 Mg Capsule) 150 mg PO DAILY [facility] Last Admin: 07/08/20 08:33 Dose: 150 mg Documented by: Discharge Activity: Return to Normal Activity Call your doctor if you observe: Fever of 101 or Higher, Shortness of breath, Dizziness, Fainting spells, Swelling in the ankles, Chest pain, Increased palpitations (irregular heartbeat) Home Medications: Medications to take at Discharge Aspirin E.C. [Ecotrin] 81 mg PO DAILY 07/21/18 Omeprazole [Prilosec] 40 mg PO DAILY 12/24/18 proMETHazine tablet [Phenergan tablet] 25 mg PO Q4H PRN PRN #20 tab 12/24/18 Ondansetron [Zofran Odt] 4 mg PO Q8H PRN PRN #10 tab 01/09/20 Gabapentin [Neurontin] 300 mg PO TID 06/05/20 Venlafaxine XR [Effexor Xr] 150 mg PO DAILY 06/05/20 Clonazepam [Klonopin] 0.5 mg PO DAILY #0 06/06/20 Lactobacillus rhamnosus GG 10 billion cell capsule 1 cap PO DAILY #90 cap 06/08/20 lisinopril 10 mg tablet 10 mg PO DAILY #90 tab 06/08/20 carvedilol 12.5 mg tablet 12.5 mg PO BID #180 tab 07/02/20 Primary Care Physician: Adri Anne MD [Primary Care Provider] - Please follow up with your Primary Care Physician in: 3-5 days Please Follow Up With: 180 When: When scheduled Disposition: Home Minutes spent on discharge:: 35 Patient Condition:: Stable Medical Necessity - Tobacco Use Smoking Status: Current every day smoker Tobacco Use: Cigarettes Meaningful Use Info Meaningful Use Diagnoses (Choose all that apply): None applicable Inpatient E&M: 31795 Disch Hosp
== END 2020-07-08 13:45 | disposition home or self-care (01) | DRG 897 ==
LOC: ED 23:22 → MS3 07-06 00:14
PROVIDERS: Admitting Provider Hospitalist; Emergency Provider Emergency Medicine; PCP Internal Medicine; Visit Provider Family Medicine
DX: F11.23 Opioid dependence with withdrawal (principal); I42.9 Cardiomyopathy, unspecified; R74.8 Abnormal levels of other serum enzymes; I25.10 Atherosclerotic heart disease of native coronary artery without angina pectoris; I10 Essential (primary) hypertension; E78.5 Hyperlipidemia, unspecified; G47.33 Obstructive sleep apnea (adult) (pediatric); R10.9 Unspecified abdominal pain; G89.29 Other chronic pain; K21.9 Gastro-esophageal reflux disease without esophagitis; F32.9 Major depressive disorder, single episode, unspecified; F41.9 Anxiety disorder, unspecified; E66.9 Obesity, unspecified; F17.210 Nicotine dependence, cigarettes, uncomplicated; I25.2 Old myocardial infarction; Z68.25 Body mass index [BMI] 25.0-25.9, adult; Z90.49 Acquired absence of other specified parts of digestive tract; Z90.710 Acquired absence of both cervix and uterus; Z79.82 Long term (current) use of aspirin; Z79.899 Other long term (current) drug therapy; Z86.73 Personal history of transient ischemic attack (TIA), and cerebral infarction without residual deficits
CPT/HCPCS: 80053; 80307; 80320; 81001; 83690; 85025; 85610; 93005; 99285; 99406; A4216; G0480

== ENCOUNTER 2021-06-15 02:37 | Emergency (ER) | payer MEDICARE, MEDICAID, SELFPAY ==
[2021-06-15] VITALS (12 sets, daily range): BP systolic 134–166; BP diastolic 84–109; PULSE 85–108; RESP 15–19; TEMP 36.1–36.4; O2SAT 88–96; BMI 27.3
--- NOTE | 2021-06-15 02:54 | RAD_ITS ---
STUDY: X-RAY CHEST REASON FOR EXAM: Female, 65 years old. cough fever covid TECHNIQUE: Single AP portable view of the chest. COMPARISON: 03/25/2020. FINDINGS: The lungs are clear and expanded. There is no demonstrated pleural abnormality. There is mild cardiac enlargement. Normal mediastinum and dru. Normal visualized pulmonary arteries. There is atherosclerotic calcification of the aortic arch with tortuosity. There is demineralization of the osseous structures. There is degenerative osteoarthritis of the bilateral shoulders. There is no demonstrated abnormality of the visualized soft tissue structures of the upper abdomen. RAD/Chest 1 View (Portable) IMPRESSION: No acute cardiopulmonary disease. Cardiomegaly. Electronically Signed: Liza Cardenas MD at 3:30 EDT , Service support ,
--- NOTE | 2021-06-15 02:55 | EX.ED.DYSGE1 ---
HPI History of Present Illness Chief Complaint: General Illness Informant: patient and family Onset/Context/Timing Onset: Days (4) Quality: fatigue Location: all over Current Severity: Moderate Maximum Severity: Moderate Worsened by: nothing Relieved by: nothing Associated Symptoms Associated Symptoms ED: cough Narrative Narrative: 4 days of illness tested positive for Covid via self-test at home, yesterday diagnosed with Covid pneumonitis, was admitted to [facility] because she was hypoxic, apparently she and son were very upset with the care there, so at 2:45 AM, after signing out AMA at [facility], she presents here and is requesting continuation of care. Patient has had fevers, chills, myalgias, headaches, some abdominal soreness from coughing, no chest pain. She denies shortness of breath. She has COPD and notes that she is chronically dyspnea with exertion and states basically she feels no different there. No diarrhea or vomiting. No focal neurologic symptoms. Patient is not on oxygen at home for COPD. She was not vaccinated against Covid. [facility] Medical History Atherosclerotic heart disease of [place] coronary artery without angina pectoris Calculus of left kidney Cardiomyopathy COPD (chronic obstructive pulmonary disease) Essential hypertension GERD (gastroesophageal reflux disease) Hyperlipidemia Hypertension Personal history of transient ischemic attack (TIA), and cerebral infarction without residual deficits Tobacco abuse Home Medications aspirin 81 mg PO DAILY 07/21/18 [History Last Taken 07/05/20] omeprazole 40 mg PO DAILY 12/24/18 [History Last Taken 07/05/20] gabapentin 300 mg PO TID 06/05/20 [History Last Taken 07/05/20] venlafaxine 150 mg PO DAILY 06/05/20 [History Last Taken 07/05/20] Lactobacillus rhamnosus GG 10 billion cell capsule 1 cap PO DAILY #90 cap 06/08/20 [Rx Last Taken 07/05/20] lisinopril 10 mg tablet 10 mg PO DAILY #90 tab 06/08/20 [Rx Last Taken 07/05/20] carvedilol 12.5 mg tablet 12.5 mg PO BID #180 tab 07/02/20 [Rx Last Taken 07/05/20] albuterol sulfate [Ventolin HFA] 1 - 2 puff INHALATION Q4H PRN PRN #1 inhaler 06/15/21 [Rx Last Taken Unknown] dexamethasone 6 mg PO DAILY #6 tab 06/15/21 [Rx Last Taken Unknown] lorazepam 1 mg PO BID PRN PRN 06/15/21 [History Last Taken Unknown] Allergy/AdvReac Type Severity Reaction Status Date / Time No Known Allergies Allergy Verified 06/15/21 02:43 Family History Mother Hypertension CAD (coronary artery disease) CVA (cerebral vascular accident) Myocardial infarction Grandmother Myocardial infarction Surgical History History of total hysterectomy Hx of appendectomy Social History Smoking Status: Current every day smoker tobacco type: cigarettes alcohol intake: never substance use type: does not use ROS ROS ED Constitutional Constitutional ED: Reports body ache(s), chills, fatigue, fever(s), headache(s) and malaise Eyes Eyes: Denies change in vision or diplopia ENT ENT ED: Denies rhinorrhea or sore throat Cardiovascular Cardiovascular: Denies chest pain or palpitations Respiratory/Chest Respiratory/Chest: Reports as per HPI, cough and dyspnea on exertion; Denies dyspnea Gastrointestinal Gastrointestinal: Reports diarrhea; Denies abdominal pain, nausea or vomiting Genitourinary Genitourinary ED: Denies dysuria or hematuria Musculoskeletal Musculoskeletal: Denies back pain or neck pain Integumentary Denies abscess or rash Neurologic Neurologic: Reports headache(s); Denies paresthesias or weakness Psychiatric Psychiatric: Denies anxiety or suicidal thoughts EXAM Physical Exam Const Vital Signs: 06/15/21 02:39 06/15/21 02:42 06/15/21 02:45 Temperature 97 F L 97 F L Temperature Source Temporal Temporal Pulse Rate 86 86 Respiratory Rate 15 15 Respiratory Effort Short of Breath Blood Pressure 134/84 H 134/84 H Blood Pressure Mean 100 100 Pulse Ox 91 91 Oxygen Delivery Method Oxygen Flow Rate (L/min) 06/15/21 03:22 06/15/21 03:43 06/15/21 04:02 Temperature 97 F L 97.5 F L Temperature Source Temporal Temporal Pulse Rate 86 91 Respiratory Rate 15 18 Respiratory Effort Blood Pressure 134/84 H 135/109 H Blood Pressure Mean 100 117 Pulse Ox 88 88 96 Oxygen Delivery Method Nasal Cannula Nasal Cannula Oxygen Flow Rate (L/min) 2 2 06/15/21 04:59 06/15/21 05:09 06/15/21 06:07 Temperature 97.5 F L 97 F L Temperature Source Temporal Temporal Pulse Rate 108 H 108 H 108 H Respiratory Rate 19 H 19 H 19 H Respiratory Effort Blood Pressure 135/109 H 135/109 H 135/109 H Blood Pressure Mean 117 117 117 Pulse Ox 96 96 96 Oxygen Delivery Method Nasal Cannula Nasal Cannula Nasal Cannula Oxygen Flow Rate (L/min) 2 2 2 06/15/21 06:53 06/15/21 06:54 Temperature 97.5 F L Temperature Source Temporal Pulse Rate 85 Respiratory Rate 18 Respiratory Effort Blood Pressure 166/95 H Blood Pressure Mean 118 Pulse Ox 96 96 Oxygen Delivery Method Nasal Cannula Nasal Cannula Oxygen Flow Rate (L/min) 2 2 Positive well nourished and well developed Constitutional Narrative: Malaised-appearing, no distress. Conversing in full sentences without difficulty. General Appearance ED: well developed and NAD HEENT Reports moist mucous membranes normocephalic and atraumatic Eyes PERRL and EOMs intact bilaterally Neck full ROM and supple Resp normal respiratory effort and clear to auscultation bilaterally Cardio regular rate, regular rhythm and no murmurs Rate: Negative for tachycardic GI non-tender and non-distended Auscultation: normoactive bowel sounds Palpation: soft Back/Spine no CVA tenderness General Back: other FROM Extremity normal to inspection and no calf tenderness General Extremety ED: Negative for edema, pulses abnormal or tenderness General Extremity: Negative for edema or pulses abnormal Neuro oriented x3, CN's II-XII intact bilaterally and no sensory deficits noted Sensorium / Orientation: awake and alert Motor Exam: strength 5/5 throughout Skin no rashes or lesions noted and no wounds MDM MDM MDM Narrative Medical decision making narrative: While awaiting records from [place], basic labs and a chest x-ray obtained. She is not hypoxic right now but borderline, 91% on room air even with conversation. I received records from [facility]. They seem incomplete, but it is everything that they sent. Apparently the patient was brought to the ER by EMS unresponsive and hypoxic at 83% or so, she had a blood sugar that was 194, normal vital signs except for pulse ox, they put her on a nonrebreather, ED staff then gave her Narcan and she immediately woke up, and then I see that they admitted her to the hospital. It appears that inpatient staff is treating her like hypoxic Covid pneumonia, and unlike the patient's history here of having symptoms for about 4 days, at that time the history was that she had been symptomatic for over a week which may explain why they had a negative rapid test. I still have no records of a positive Covid test, and our chest x-ray shows no acute abnormality. The patient denies feeling dyspneic. She transiently desatted to 87-88% when having a bronchospasm make episode, although it was only for 10 seconds or so before she got back up into the 90s. For these reasons I will add a D-dimer and CT angiography of the chest to rule out pulmonary embolus if necessary. As below, CT angiography does confirm bilateral multifocal pneumonia which was not seen on chest x-ray, and lack of any acute pulmonary embolus or other acute abnormality. We will continue to monitor on pulse oximetry, she basically is right at 94% at rest. She does not want to stay in the hospital, after I offered it. At this time I think it is okay that she go home since she is satting well and I discussed continuing to observe her oxygen saturations at home. Since she started Decadron already, I think it would be reasonable to finish the course. I did discuss with her that she had started remdesivir and will not be able to finish that course. Prior to discharge we ambulated the patient, she went down to 87% and remained there for some time and she was placed back on oxygen. Understanding that she cannot finish the remdesivir at home and she wants to maximize her chances of recovery, she changed her mind and want to stay in the hospital. I discussed w/ hospitalist Dr. Rodriguez, who states that since she is only requiring 2L NC to stay in the 90s, she is not a candidate for admission since we have the capability of sending her home on oxygen, regardless of whether she has finished Remdesivir or not. Therefore, we need to obtain a new Covid PCR test in order to prove she is Covid positive since we do not have a copy of a positive test in her records at this time. If/when this is positive, we will get her supplemental oxygen for discharge home in addition to prescriptions for dexamethasone and an albuterol MDI. Lab Data Attestation: I reviewed the patient's lab results. Labs: Laboratory Results - last 24 hr 06/15/21 06/15/21 06/15/21 03:10 03:10 04:28 WBC 2.8 L RBC 3.57 L Hgb 11.2 L Hct 34.3 L MCV 96.1 MCH 31.4 MCHC 32.7 RDW Std Deviation 47.9 H RDW Coeff of Sariah 13.5 Plt Count 150 MPV 11.1 Immature Gran % (Auto) 1.100 H Neut % (Auto) 54.5 Lymph % (Auto) 36.7 [place] % (Auto) 7.3 Eos % (Auto) 0.0 Baso % (Auto) 0.4 Absolute Neuts (auto) 1.5 L Absolute Lymphs (auto) 1.01 Nucleated RBC % 0 Differential Comment SCANNED Plt Morphology Comment CLUMPED D-Dimer Quant (PE/DVT) 1.03 H* Sodium 138 Potassium 5.1 Chloride 105 Carbon Dioxide 29.0 Anion Gap 4 L BUN 14 Creatinine 0.67 Estim Creat Clear Calc 79.41 Est GFR (MDRD) Af Amer 113 Est GFR (MDRD) Non-Af 94 BUN/Creatinine Ratio 20.8 H Glucose 139 H Calcium 8.6 Troponin I High Sens 31 Radiography Diagnostic Testing: Clinical Impression(s) from Imaging Studies Chest X-Ray 06/15/21 02:54 IMPRESSION: No acute cardiopulmonary disease. Cardiomegaly. Electronically Signed: Liza Cardenas MD at 3:30 EDT , Service support , Chest CTA 06/15/21 05:01 IMPRESSION: 1. No CTA demonstrated pulmonary embolism or arterial dissection. 2. Bilateral multifocal pneumonia. Electronically Signed: Diane Yuan MD at 6:14 EDT , Service support , Discharge Plan Triage Chief Complaint: General Illness ED Provider: Linus Byers Dx/Rx/DC Orders Clinical Impression: Pneumonia due to 2019 novel coronavirus, Hypoxemia Instructions: Coronavirus Disease 2019 (COVID-19): Caring for Yourself or Others Prescriptions: New dexamethasone 6 MG tablet 6 mg PO DAILY Qty: 6 RF: 0 albuterol sulfate [Ventolin HFA] 1 INHALER inhaler 1 - 2 puff inhalation Q4H PRN PRN (Reason: Wheezing) Qty: 1 RF: 0 No Action lisinopril 10 mg tablet 10 mg PO DAILY Qty: 90 RF: 3 Culturelle 10 billion cell capsule 1 cap PO DAILY Qty: 90 RF: 2 aspirin 81 MG tablet 81 mg PO DAILY RF: 0 omeprazole 20 MG capsule 40 mg PO DAILY RF: 0 venlafaxine 150 MG capsule 150 mg PO DAILY RF: 0 gabapentin 300 MG capsule 300 mg PO TID RF: 0 lorazepam 1 mg tablet 1 mg PO BID PRN PRN (Reason: Anxiety) RF: 0 carvedilol 12.5 mg tablet 12.5 mg PO BID Qty: 180 RF: 3 Primary Care Provider: Care Physician,No Primary Referrals: Nisreen Packer [NON-STAFF] - As Needed (Or primary care if you already have one) Care Physician,No Primary [Primary Care Provider] - Activity Restrictions/Additional Instructions: Try to get a home portable pulse oximeter and closely watch your oxygen levels periodically. If you stay below 90% for more than a minute or so, and/or you are feeling like your breathing is getting worse, return to the emergency department for further evaluation. Disposition Disposition: Home, Self Care
[2021-06-15 03:17] LABS: Absolute Lymphocyte Count 1.01 X10^3/uL (0.83-4.51); Absolute Neutrophil Count 1.5 X10^3/uL (2.0-7.7); Basophil# 0.01 X10^3/uL; Basophil% 0.4 % (0-1); Hematocrit 34.3 % (37-47); Hemoglobin 11.2 g/dL (12.0-15.0); Lymphocyte # 1.01 X10^3/ul (0.83-4.51); Lymphocyte % 36.7 % (19-41); Mean Corp Hgb Conc 32.7 g/dL (32-36); Mean Corpuscular Hgb 31.4 pg (27.0-32.0); Mean Corpuscular Volume 96.1 fL (81-99); Mean Platelet Vol. 11.1 fl (6.2-12.0); Monocyte% 7.3 % (0-10); NRBC Flagged by Analyzer 0 % (0-5); Neutrophil % 54.5 % (47-70); POSITIVE COUNT YES; POSITIVE MORPHOLOGY YES; Platelet Count 150 K/mm3 (150-450); RBC Distribution Width CV 13.5 % (11.6-14.6); RBC Distribution Width SD 47.9 fl (35.1-43.9); Red Blood Count 3.57 M/mm3 (4.2-5.4); White Blood Count 2.8 K/mm3 (4.4-11.0)
[2021-06-15 03:23] LABS: Differential Indicated SCAN CRITERIA MET
[2021-06-15 04:12] LABS: Anion Gap 4 (5-15); BUN 14 mg/dL (7-18); BUN/Creat Ratio 20.8 RATIO (10-20); Calcium,Total 8.6 mg/dL (8.5-10.1); Chloride 105 mmol/L (98-107); Creatinine, Serum 0.67 mg/dL (0.55-1.02); EST Glomerular Filtration Rate 94 mL/min (>60); Est Glom Filt Rate - Afr Amer 113 mL/min (>60); Estimated Creatinine Clearance 79.41 ml/min; Glucose 139 mg/dL (74-106); Potassium 5.1 mmol/L (3.5-5.1); Sodium Level 138 mmol/L (136-145); Troponin-I HS 31 pg/mL (3.0-54.0)
[2021-06-15 04:18] LABS: Differential Comment SCANNED; Platelet Morphology CLUMPED
[2021-06-15 04:58] LABS: D-Dimer Quantitative (DVT/PE) 1.03 FEU/ug/m (0.27-0.49)
--- NOTE | 2021-06-15 05:01 | CT_ITS ---
STUDY: CTA CHEST REASON FOR EXAM: Female, 65 years old patient with COVID infection, shortness of breath, and elevated D-Dimer. RADIATION DOSAGE (If Supplied By Facility): CTDIvol = ( 13.76 ) mGy, DLP = ( 446.60 ) mGycm TECHNIQUE: The examination was performed with the intravenous administration of 100 mL of Isovue-370. Post-processing of the angiographic images was performed, with multiplanar reformation and 3D reconstruction. Individualized dose optimization techniques were used for this CT. COMPARISON: CTA of the chest dated 07/21/2018. FINDINGS: Cardiac monitoring leads are present. Normal enhancement of the main pulmonary artery and right and left pulmonary arteries. Normal enhancement of the bilateral peripheral pulmonary arteries. There is no demonstrated pulmonary embolism. There is atherosclerotic calcification of the aortic arch with tortuosity. There is no demonstrated aortic dissection. There is borderline cardiomegaly. There are calcifications of the coronary arteries. There are visualized mediastinal lymph nodes, which are within normal size limits, and with normal morphology. Normal hilar regions. Normal visualized trachea and bronchi. The lungs are hyperexpanded, with flattening of the hemidiaphragms. There is peripheral groundglass attenuation present within the lower lobes and right middle lobe suggesting multifocal pneumonia. There is also bilateral lower lobe airspace consolidation. There is patchy groundglass attenuation within the lingula. Normal pleura. Normal chest wall structures. The bones are osteopenic. There is pectus carinatum. Normal visualized upper abdomen. CT/CTA Chest W/WO Contrast IMPRESSION: 1. No CTA demonstrated pulmonary embolism or arterial dissection. 2. Bilateral multifocal pneumonia. Electronically Signed: Diane Yuan MD at 6:14 EDT , Service support ,
--- NOTE | 2021-06-15 06:48 | ED.RN ---
REPORTS SHE DID NOT FEEL SHORT OF BREATH WHEN WALKING
--- NOTE | 2021-06-15 07:08 | NURSING ---
dr esquivel for dr gonzales
== END 2021-06-15 11:50 | disposition home or self-care (01) ==
PROVIDERS: Emergency Provider Emergency Medicine
DX: U07.1 COVID-19 (principal); J12.82 Pneumonia due to coronavirus disease 2019; J44.0 Chronic obstructive pulmonary disease with (acute) lower respiratory infection; R09.02 Hypoxemia; I25.10 Atherosclerotic heart disease of native coronary artery without angina pectoris; I10 Essential (primary) hypertension; I42.9 Cardiomyopathy, unspecified; E78.5 Hyperlipidemia, unspecified; K21.9 Gastro-esophageal reflux disease without esophagitis; F17.210 Nicotine dependence, cigarettes, uncomplicated; Z79.82 Long term (current) use of aspirin; Z79.52 Long term (current) use of systemic steroids; Z79.899 Other long term (current) drug therapy; Z86.73 Personal history of transient ischemic attack (TIA), and cerebral infarction without residual deficits
CPT/HCPCS: 71045; 71275; 80048; 84484; 85025; 85379; 87635; 96360; 99285; J7040; Q9967; U0005; A4216; U0003

== ENCOUNTER 2021-09-01 06:20 | Inpatient (IN) | payer MEDICARE, MEDICAID, SELFPAY ==
[2021-09-01] VITALS (14 sets, daily range): BP systolic 151–169; BP diastolic 88–114; PULSE 76–107; RESP 14–16; TEMP 36.4–37; O2SAT 95–99; BMI 30.7; BMI 28.4
--- NOTE | 2021-09-01 06:22 | EKG12_ITS ---
Test Reason : CP/PALPS Blood Pressure : / mmHG Vent. Rate : 097 BPM Atrial Rate : 097 BPM P-R Int : 124 ms QRS Dur : 098 ms QT Int : 392 ms P-R-T Axes : 058 041 126 degrees QTc Int : 497 ms Sinus rhythm with occasional Premature ventricular complexes Otherwise normal ECG Confirmed by CECI MARTINEZ, GEO ([id number]), newspaper editor managing MICAH SALMERON ([id number]) on 09/03/2021 10:02:02 AM Referred By: OLGA Confirmed By:GEO ORNELAS MD
[2021-09-01 06:28] LABS: Absolute Neutrophil Count 3.7 X10^3/uL (2.0-7.7); Basophil# 0.07 X10^3/uL; Basophil% 0.8 % (0-1); Eosinophil# 0.53 X10^3/uL; Eosinophils% 5.8 % (0-5); Hematocrit 44.6 % (37-47); Hemoglobin 14.6 g/dL (12.0-15.0); Lymphocyte % 45.1 % (19-41); Mean Corp Hgb Conc 32.7 g/dL (32-36); Mean Corpuscular Hgb 31.5 pg (27.0-32.0); Mean Corpuscular Volume 96.3 fL (81-99); Mean Platelet Vol. 9.5 fl (6.2-12.0); Monocyte# 0.67 X10^3/uL; Monocyte% 7.4 % (0-10); NRBC Flagged by Analyzer 0 % (0-5); Neutrophil % 40.7 % (47-70); Platelet Count 296 K/mm3 (150-450); RBC Distribution Width SD 49.6 fl (35.1-43.9); Red Blood Count 4.63 M/mm3 (4.2-5.4); White Blood Count 9.1 K/mm3 (4.4-11.0)
--- NOTE | 2021-09-01 06:35 | RAD_ITS ---
STUDY: X-RAY CHEST REASON FOR EXAM: Female, 65 years old. chest pain TECHNIQUE: AP COMPARISON: 06/15/[address] chest. FINDINGS: The right lung remains clear. There is suggestion of minimal left lower lung opacities. There is no demonstrated pleural abnormality. There is mild cardiac enlargement. Normal mediastinum and dru. Normal visualized pulmonary arteries. There is atherosclerotic tortuosity of the aortic arch and descending thoracic aorta. There are diffuse degenerative changes of the visualized thoracic spine. There is degenerative osteoarthritis of the bilateral shoulders. There is no demonstrated abnormality of the visualized soft tissue structures of the upper abdomen. RAD/Chest 1 View (Portable) IMPRESSION: Minimal left lung base opacities which may be due to underlying atelectasis or pneumonia. Electronically Signed: Karthik Jimenez MD at 6:52 EST Tel , Service support ,
--- NOTE | 2021-09-01 06:36 | ED.VIS.CHEST ---
HPI History of Present Illness Chief Complaint: Chest Pain Informant: patient Onset/Context/Timing Onset: Today Activity at onset: sudden Timing: Continuous Quality: Positive for - (Pulling) Location: Left Chest Worsened By: Nothing Relieved By: NTG Associated Symptoms: Positive for Nausea, Diaphoresis, Dyspnea, Lightheadedness, Acid Reflux and Palpitations; Negative for Vomiting, Cough and Fever Narrative Narrative: Patient presents with chest pain that began this morning when she woke up. Patient states she woke up and walk to the bathroom and noted some pain in her left upper chest. Patient states it radiates into her back. Patient describes it as a pulling sensation. Patient states nothing makes it worse. Patient states it did improve slightly with nitroglycerin administered by EMS. Patient admits to nausea but denies any vomiting. Patient mitts to some mild diaphoresis and shortness of breath at home. Patient denies any cough or fevers. Patient admits to some lightheadedness and palpitations. Patient states she checked her pulse oximeter and this was normal but her heart rate was reading 164 on her pulse oximeter monitor. CVD Risk Factors: Positive for Hypertension and Smoking; Negative for Diabetes, Hypercholesterolemia and Family History 1' </=55 PE Risk Factors: Negative for Recent Travel/Surgery, Recent Immobilization, Prior DVT or PE, Cancer and OCP + Smoking + >/=35 PFSH [facility] Medical History Atherosclerotic heart disease of [place] coronary artery without angina pectoris Calculus of left kidney Cardiomyopathy COPD (chronic obstructive pulmonary disease) Essential hypertension GERD (gastroesophageal reflux disease) Hyperlipidemia Hypertension Personal history of transient ischemic attack (TIA), and cerebral infarction without residual deficits Tobacco abuse Home Medications aspirin 81 mg PO DAILY 07/21/18 [History Last Taken 07/05/20] omeprazole 40 mg PO DAILY 12/24/18 [History Last Taken 07/05/20] gabapentin 300 mg PO TID 06/05/20 [History Last Taken 07/05/20] venlafaxine 150 mg PO DAILY 06/05/20 [History Last Taken 07/05/20] Lactobacillus rhamnosus GG 10 billion cell capsule 1 cap PO DAILY #90 cap 06/08/20 [Rx Last Taken 07/05/20] lisinopril 10 mg tablet 10 mg PO DAILY #90 tab 10/02/20 [Rx Last Taken 07/05/20] carvedilol 12.5 mg tablet 12.5 mg PO BID #180 tab 07/02/20 [Rx Last Taken 07/05/20] albuterol sulfate [Ventolin HFA] 1 - 2 puff INHALATION Q4H PRN PRN #1 inhaler 06/15/21 [Rx Last Taken Unknown] dexamethasone 6 mg PO DAILY #6 tab 06/15/21 [Rx Last Taken Unknown] lorazepam 1 mg PO BID PRN PRN 06/15/21 [History Last Taken Unknown] Allergy/AdvReac Type Severity Reaction Status Date / Time No Known Allergies Allergy Verified 09/01/21 06:33 Family History Mother Hypertension CAD (coronary artery disease) CVA (cerebral vascular accident) Myocardial infarction Grandmother Myocardial infarction Surgical History History of total hysterectomy Hx of appendectomy Social History Smoking Status: Current every day smoker tobacco type: cigarettes alcohol intake: never substance use type: does not use ROS ROS ED Constitutional Constitutional ED: Denies chills or fever(s) Eyes Eyes: Denies blurry vision or change in vision ENT ENT ED: Denies rhinorrhea or sore throat Cardiovascular Cardiovascular: Reports chest pain and palpitations Respiratory/Chest Respiratory/Chest: Reports dyspnea; Denies cough Gastrointestinal Gastrointestinal: Reports nausea; Denies abdominal pain or vomiting Genitourinary Genitourinary ED: Denies dysuria or hematuria Musculoskeletal Musculoskeletal: Reports back pain; Denies neck pain Integumentary Denies abscess or rash Neurologic Neurologic: Reports headache(s); Denies weakness Allergic/Immunologic Allergic/Immunologic ED: Denies mouth swelling or urticaria EXAM Physical Exam Const Vital Signs: 09/01/21 06:22 09/01/21 06:46 09/01/21 06:48 Temperature 97.7 F L Temperature Source Temporal Pulse Rate 107 H 87 87 Respiratory Rate 16 15 Blood Pressure 158/106 H 167/101 H 167/101 H Blood Pressure Mean 123 123 Pulse Ox 96 97 Oxygen Delivery Method Nasal Cannula Nasal Cannula Positive well nourished and well developed General Appearance ED: well developed HEENT normocephalic and atraumatic Eyes PERRL and EOMs intact bilaterally Neck supple and no JVD Chest Wall palpation of chest normal Resp normal respiratory effort and clear to auscultation bilaterally Effort and Inspection: Negative for respiratory distress Cardio regular rate, regular rhythm and no murmurs GI normal to inspection, nondistended, normoactive bowel sounds and soft to palpation Extremity normal to inspection General Extremety ED: Negative for edema or tenderness General Extremity: Negative for edema Neuro oriented x3, CN's II-XII intact bilaterally and no sensory deficits noted Sensorium / Orientation: awake and alert Motor Exam: strength 5/5 throughout Psych mental status grossly normal Heart Score History: Slightly/Non-Suspicious ECG: Normal Age: >45 - <65 years Risk Factors: 1 or 2 Risk Factors Troponin: </= Normal Limit Score: 2 MDM MDM MDM Narrative Medical decision making narrative: EKG was obtained. On my interpretation, it showed a normal sinus rhythm with a rate of 97. [place] interval, QRS interval, and QTc intervals were all normal. [place] was normal. There are no acute ST or T wave changes. Portable 1 view chest x-ray was obtained. On my interpretation, lung flores show left basilar atelectasis. There is normal cardiac silhouette. Bony thorax is normal. There is no acute process noted. Radiologist also interpreted the x-ray and agrees. CBC and basic metabolic profile were obtained and were essentially within normal limits. Initial high-sensitivity troponin was normal at 42. Patient has a HEART score of 2. Patient was advised that this is a low risk for acute cardiac event. Since her pain started just prior to arrival, a 2-hour repeat high-sensitivity troponin was ordered and is pending. Care of the patient will be turned over to the oncoming physician. Lab Data Attestation: I reviewed the patient's lab results. Labs: Laboratory Results - last 24 hr 09/01/21 09/01/21 06:00 06:00 WBC 9.1 RBC 4.63 Hgb 14.6 Hct 44.6 MCV 96.3 MCH 31.5 MCHC 32.7 RDW Std Deviation 49.6 H RDW Coeff of Sariah 14.0 Plt Count 296 MPV 9.5 Immature Gran % (Auto) 0.200 Neut % (Auto) 40.7 L Lymph % (Auto) 45.1 H [place] % (Auto) 7.4 Eos % (Auto) 5.8 H Baso % (Auto) 0.8 Absolute Neuts (auto) 3.7 Absolute Lymphs (auto) 4.10 Nucleated RBC % 0 Sodium 142 Potassium 3.8 Chloride 108 H Carbon Dioxide 30.0 Anion Gap 4 L BUN 20 H Creatinine 0.93 Estim Creat Clear Calc 57.21 Est GFR (MDRD) Af Amer 78 Est GFR (MDRD) Non-Af 65 BUN/Creatinine Ratio 21.6 H Glucose 127 H Calcium 9.1 Troponin I High Sens 42 Radiography Chest X-Ray - ED: 1 View, Read by ED Physician, Read by Radiologist and - (Left basilar atelectasis) Diagnostic Testing: Clinical Impression(s) from Imaging Studies Chest X-Ray 09/01/21 06:35 IMPRESSION: Minimal left lung base opacities which may be due to underlying atelectasis or pneumonia. Electronically Signed: Karthik Jimenez MD at 6:52 EST Tel , Service support , EKG Initial EKG: Attestation: I personally reviewed and interpreted this EKG as follows: Interpretation: Sinus Rhythm (97) and No Acute Injury Pattern Prior EKG tracings: available for review Prior: Unchanged (07/05/2020) Discharge Plan Triage Chief Complaint: Chest Pain ED Provider: Adryan Aguilera Dx/Rx/DC Orders Clinical Impression: Chest pain Instructions: ED Chest Pain, Uncertain Cause Prescriptions: No Action lisinopril 10 mg tablet 10 mg PO DAILY Qty: 90 RF: 3 Culturelle 10 billion cell capsule 1 cap PO DAILY Qty: 90 RF: 2 aspirin 81 MG tablet 81 mg PO DAILY RF: 0 omeprazole 20 MG capsule 40 mg PO DAILY RF: 0 venlafaxine 150 MG capsule 150 mg PO DAILY RF: 0 gabapentin 300 MG capsule 300 mg PO TID RF: 0 lorazepam 1 mg tablet 1 mg PO BID PRN PRN (Reason: Anxiety) RF: 0 dexamethasone 6 MG tablet 6 mg PO DAILY Qty: 6 RF: 0 albuterol sulfate [Ventolin HFA] 1 INHALER inhaler 1 - 2 puff inhalation Q4H PRN PRN (Reason: Wheezing) Qty: 1 RF: 0 carvedilol 12.5 mg tablet 12.5 mg PO BID Qty: 180 RF: 3 Primary Care Provider: Care Physician,No Primary Referrals: Care Physician,No Primary [Primary Care Provider] - Doctor,Your [STAFF PHYSICIAN] - 3-5 Days
[2021-09-01] MEDS: Aspirin 81 MG TAB.CHEW 324 MG PO (06:45)
[2021-09-01] MEDS: Nitroglycerin SL (ED/IMG/CATH) 0.4 MG TABLET SL ×2 (06:46→06:51)
[2021-09-01 06:47] LABS: Anion Gap 4 (5-15); BUN 20 mg/dL (7-18); BUN/Creat Ratio 21.6 RATIO (10-20); Calcium,Total 9.1 mg/dL (8.5-10.1); Chloride 108 mmol/L (98-107); Creatinine, Serum 0.93 mg/dL (0.55-1.02); EST Glomerular Filtration Rate 65 mL/min (>60); Est Glom Filt Rate - Afr Amer 78 mL/min (>60); Estimated Creatinine Clearance 57.21 ml/min; Glucose 127 mg/dL (74-106); Potassium 3.8 mmol/L (3.5-5.1); Sodium Level 142 mmol/L (136-145); Troponin-I HS 42 pg/mL (3.0-54.0)
[2021-09-01 08:37] LABS: Troponin-I HS 69 pg/mL (3.0-54.0)
[2021-09-01 09:51] LABS: D-Dimer Quantitative (DVT/PE) 0.86 FEU/ug/m (0.27-0.49)
--- NOTE | 2021-09-01 09:51 | CT_ITS ---
STUDY: CTA CHEST REASON FOR EXAM: Female, 65 years old. pulmonary embolism elevated ddimer RADIATION DOSAGE (If Supplied By Facility): CTDIvol = ( 12.49 ) mGy, DLP = ( 495.03 ) mGycm TECHNIQUE: The examination was performed with the intravenous administration of IV 100mL Isovue-370. Post-processing of the angiographic images was performed, with multiplanar reformation and 3D reconstruction. Individualized dose optimization techniques were used for this CT. COMPARISON: 06/15/2021, chest x-ray earlier today FINDINGS: Normal enhancement of the main pulmonary artery and right and left pulmonary arteries. Normal enhancement of the bilateral peripheral pulmonary arteries. There is no demonstrated pulmonary embolism. There is atherosclerotic calcification of the aortic arch with tortuosity. There is no demonstrated aortic dissection. There is a small pericardial effusion. Normal mediastinum. Normal hilar regions. Normal visualized trachea and bronchi. The lungs are well expanded. Some dependent bibasilar atelectasis. Normal pleura. Normal chest wall structures. Normal osseous structures. Normal visualized upper abdomen. CT/CTA Chest W/WO Contrast IMPRESSION: Normal CTA chest examination, without a demonstrated pulmonary embolism or arterial dissection. Electronically Signed: Shelton Gandhi MD at 11:09 EST Tel , Service support ,
[2021-09-01] MEDS: LORazepam 1 MG Tablet PO ×2 (11:28→18:10)
--- NOTE | 2021-09-01 11:49 | PCM.HP.STD ---
HPI - General General Date of Admission: 09/01/21 Date of Service: 09/01/21 Chief Complaint: Chest pain HPI Narrative ECHO KERNS, is a 65 F who presents with chest pain. [facility] Medical History (Updated 09/01/21 @ 13:12 by Cande Stiles) Atherosclerotic heart disease of [place] coronary artery without angina pectoris Calculus of left kidney Cardiomyopathy COPD (chronic obstructive pulmonary disease) Depression Essential hypertension GERD (gastroesophageal reflux disease) Hyperlipidemia Hypertension Personal history of transient ischemic attack (TIA), and cerebral infarction without residual deficits Smoker TIA (transient ischemic attack) Tobacco abuse Home Medications aspirin 81 mg PO DAILY 07/21/18 [History Last Taken 07/05/20] omeprazole 40 mg PO DAILY 12/24/18 [History Last Taken 07/05/20] gabapentin 300 mg PO TID 06/05/20 [History Last Taken 07/05/20] venlafaxine 150 mg PO DAILY 06/05/20 [History Last Taken 07/05/20] Lactobacillus rhamnosus GG 10 billion cell capsule 1 cap PO DAILY #90 cap 06/08/20 [Rx Last Taken 07/05/20] lisinopril 10 mg tablet 10 mg PO DAILY #90 tab 06/08/20 [Rx Last Taken 07/05/20] carvedilol 12.5 mg tablet 12.5 mg PO BID #180 tab 07/02/20 [Rx Last Taken 07/05/20] albuterol sulfate [Ventolin HFA] 1 - 2 puff INHALATION Q4H PRN PRN #1 inhaler 06/15/21 [Rx Last Taken Unknown] dexamethasone 6 mg PO DAILY #6 tab 06/15/21 [Rx Last Taken Unknown] lorazepam 1 mg PO BID PRN PRN 06/15/21 [History Last Taken Unknown] Allergy/AdvReac Type Severity Reaction Status Date / Time No Known Allergies Allergy Verified 09/01/21 06:33 Family History Mother Hypertension CAD (coronary artery disease) CVA (cerebral vascular accident) Myocardial infarction Grandmother Myocardial infarction Surgical History History of total hysterectomy Hx of appendectomy Social History Smoking Status: Current every day smoker tobacco type: cigarettes alcohol intake: never substance use type: does not use ROS ROS Narrative Constitutional: Reports: Malaise, Weakness, Fatigue. Denies: Anorexia, Chills, Fever, Night Sweats, Weight Change Eyes: Denies: Blurred vision, Cataracts, Conjunctivae Inflammation, Pain, Redness, Vision Change HEENT: Denies: Difficulty Hearing, Difficulty Swallowing, Head Aches, Hearing Changes, Sinus Congestion, Sinus Drainage Cardiovascular: Denies: Chest Pain, Orthopnea, Palpitations Respiratory: Denies: Cough, Shortness of breath at rest, Sputum production Gastrointestinal: Denies: Abdominal Pain, Nausea, Vomiting Genitourinary: Denies: Dysuria Musculoskeletal: Denies: Joint Pain, Joint stiffness, Joint swelling, Joint Tenderness Skin: Denies: Rash, Wounds Neurological: Denies: Numbness, Tingling, Focal weakness Vital Signs Vital Signs Vital Signs: 09/01/21 06:22 09/01/21 06:46 09/01/21 06:48 Temperature 97.7 F L Temperature Source Temporal Pulse Rate 107 H 87 87 Respiratory Rate 16 15 Respiratory Effort Blood Pressure 158/106 H 167/101 H 167/101 H Blood Pressure Mean 123 123 Pulse Ox 96 97 Oxygen Delivery Method Nasal Cannula Nasal Cannula 09/01/21 06:51 09/01/21 07:01 09/01/21 07:16 Temperature Temperature Source Pulse Rate 96 Respiratory Rate Respiratory Effort Normal Non-Labored Blood Pressure 167/101 H Blood Pressure Mean Pulse Ox 96 Oxygen Delivery Method Room Air 09/01/21 07:30 09/01/21 08:00 09/01/21 09:30 Temperature Temperature Source Pulse Rate 79 76 88 Respiratory Rate 14 14 15 Respiratory Effort Blood Pressure 164/114 H 161/102 H 169/88 H Blood Pressure Mean 130 121 115 Pulse Ox 96 95 97 Oxygen Delivery Method Room Air Room Air Room Air Weight Weight: 86.2 kg Body Mass Index (BMI) 30.7 Physical Exam Narrative Physical exam: General: Alert, Oriented x3, Cooperative, No apparent distress, Well developed HEENT: Atraumatic Oral: Moist Mucosa Neck: Supple Lungs: Clear to auscultation Cardiovascular: HS I+II, regular, no murmurs Abdomen: Bowel Sounds Present, Soft, Non Tender Extremities: No edema Results Lab / Micro Data Result Diagrams: 09/01/21 06:00 09/01/21 06:00 Labs: Laboratory Results - last 24 hr 09/01/21 06:00: WBC 9.1, RBC 4.63, Hgb 14.6, Hct 44.6, MCV 96.3, MCH 31.5, MCHC 32.7, RDW Std Deviation 49.6 H, RDW Coeff of Sariah 14.0, Plt Count 296, MPV 9.5, Immature Gran % (Auto) 0.200, Neut % (Auto) 40.7 L, Lymph % (Auto) 45.1 H, [place] % (Auto) 7.4, Eos % (Auto) 5.8 H, Baso % (Auto) 0.8, Absolute Neuts (auto) 3.7, Absolute Lymphs (auto) 4.10, Nucleated RBC % 0 09/01/21 06:00: Sodium 142, Potassium 3.8, Chloride 108 H, Carbon Dioxide 30.0, Anion Gap 4 L, BUN 20 H, Creatinine 0.93, Estim Creat Clear Calc 57.21, Est GFR (MDRD) Af Amer 78, Est GFR (MDRD) Non-Af 65, BUN/Creatinine Ratio 21.6 H, Glucose 127 H, Calcium 9.1, Troponin I High Sens 42 09/01/21 08:15: Troponin I High Sens 69 H 09/01/21 09:13: D-Dimer Quant (PE/DVT) 0.86 H* Radiology Impression Chest X-Ray 09/01/21 06:35 IMPRESSION: Minimal left lung base opacities which may be due to underlying atelectasis or pneumonia. Electronically Signed: Karthik Jimenez MD at 6:52 EST Tel , Service support , Chest CTA 09/01/21 09:51 IMPRESSION: Normal CTA chest examination, without a demonstrated pulmonary embolism or arterial dissection. Electronically Signed: Shelton Gandhi MD at 11:09 EST Tel , Service support , Assessment & Plan Assessment/Plan (1) Chest pain: QUALIFIERS: Chest pain type: unspecified Qualified Code(s): R07.9 - Chest pain, unspecified PLAN: 1. Acute NSTEMI, CELESTE score 3, Heart score of 5 Admit to PCU, continue to monitor on telemetry, trend troponins aspirin 81 mg p.o. daily, atorvastatin 40 mg Heparin drip -patient refused heparin drip Cardiology consult Check lipid profile, HbA1c 2. Nicotine dependence, on replacement 3. Non-compliance, patient's med list is questionable, patient is a poor historian. 4. History of polysubstance abuse, patient stated that she stopped using fentanyl Charges/Coding Visit Charges OBSV E&M: 59561 Initial observation care L3
--- NOTE | 2021-09-01 12:50 | PCS.PANDOC ---
PANDEMIC DOCUMENTATION INITIATED: Date: 09/01/2021 Time: 7393
[2021-09-01 13:44] LABS: Troponin-I HS 197 pg/mL (3.0-54.0)
--- NOTE | 2021-09-01 15:28 | ECHOCS_ITS ---
Reason For Study: Chest Pain Procedure This was a 2D Doppler, Color Flow transthoracic echocardiogram. Technically difficult study, contrast injection performed. Echo done post radial cath (09/02/2021). Exam performed in [facility] [employer] holding room 4. Left Ventricle Normal LV size. Left ventricular systolic function is normal. The estimated ejection fraction is 47 %. Stage 1 diastolic dysfunction. Mild to moderate segmental systolic dysfunction (see wall motion). [place] : Severely Hypokinetic. Anterior [place] : Hypokinetic. Mid-Anterior : Mildly hypokinetic. There are regional wall motion abnormalities as specified. Right Ventricle Normal RV size. Normal systolic function. Atria Normal left atrium. Normal right atrium. Mitral Valve Normal mitral valve. Tricuspid Valve Normal tricuspid valve. Mild tricuspid valve insufficiency. Aortic Valve Trisinus/trileaflet aortic valve. Pulmonic Valve Normal pulmonic valve. Great Vessels Normal aortic root. The pulmonary artery is normal size. Normal inferior vena cava. Pericardium/Pleural Small pericardial effusion. Medication Diluted definity 4ml given slow IV push to enhance endocardial definition. MMode/2D Measurements & Calculations LVIDd: 5.4 cm IVSd: 1.5 cm LA dimension: 3.7 cm LVIDs: 4.4 cm LVPWd: 0.94 cm FS: 18.6 % LAV(MOD-bp): 45.6 ml LA A4 area: 16.9 cm2 RA A4 area: 10.4 cm2 LAV(MOD-bp) Indexed: 24.1 ml/m2 LAV(MOD-sp2): 44.1 ml LAV(MOD-sp4): 43.7 ml Time Measurements MV dec time: 0.20 sec Doppler Measurements & Calculations MV E max bryson: 50.4 cm/sec Lat Peak E' Bryson: 8.4 cm/sec Med Peak E' Bryson: 3.6 cm/sec MV A max bryson: 94.0 cm/sec E/E' lat: 6.0 E/E' med: 13.9 MV E/A: 0.54 MV V2 max: 114.0 cm/sec MV P1/2t max bryson: 64.9 cm/sec Ao V2 max: 153.4 cm/sec MV max P.2 mmHg MV P1/2t: 105.4 msec Ao max P.4 mmHg MV V2 mean: 62.2 cm/sec MV dec slope: 180.5 cm/sec2 MV mean P.9 mmHg MV V2 VTI: 23.2 cm MVA(P1/2t): 2.1 cm2 LV V1 max: 103.8 cm/sec MR max bryson: 491.8 cm/sec PA V2 max: 82.8 cm/sec LV V1 max P.3 mmHg MR max P.7 mmHg TR max bryson: 213.2 cm/sec TR max P.2 mmHg ECHO/Echo Complete W/ Contrast Interpretation Summary Normal LV size. Left ventricular systolic function is normal. The estimated ejection fraction is 47 %. Stage 1 diastolic dysfunction. Mild to moderate segmental systolic dysfunction (see wall motion). Ordering Physician: Ken Banda Referring Physician: June PCP noted Performed By: Orlando James RCS
--- NOTE | 2021-09-01 15:53 | PCM.CONS.C ---
Assessment & Plan Assessment/Plan (1) TIA (transient ischemic attack): QUALIFIERS: Transient cerebral ischemia type: unspecified Qualified Code(s): G45.9 - Transient cerebral ischemic attack, unspecified (2) Obesity (BMI 30.0-34.9): (3) EVELYN (obstructive sleep apnea): (4) Tobacco use: (5) Opiate dependence: QUALIFIERS: Substance use status: with unspecified opioid-induced disorder Qualified Code(s): F11.29 - Opioid dependence with unspecified opioid-induced disorder (6) NSTEMI (non-ST elevated myocardial infarction): PLAN: 65-year-old patient with known history of CAD, presented with symptoms of chest pain described as left upper chest with radiation to the left arm the symptoms have been this morning around 10:00 EMS called and patient was given nitroglycerin which relieved her symptoms some extent Subsequent evaluation in the ER by EKG and cardiac markers with high sensitive troponin elevated, patient also had a history of TIA, obstructive sleep apnea hyperlipidemia, hypertension. Cardiac care plan recommendation; 1. 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 Best 2. Patient continues to smoke with clear evidence of non-ST elevation MD presented with symptoms of chest pain on this admission 3. Patient been stable on medical treatment with nitroglycerin, aspirin, statin, heparin drip 4. I discussed further cardiac recommendation with left heart catheterization on Thursday. HPI Consult Data Date of Consult: 09/01/21 HPI Narrative Reason for Consultation: CAD/non-ST elevation MD HPI Narrative: ECHO KERNS, is a 65 F who presents [facility] Medical History (Updated 09/01/21 @ 13:12 by Cande Stiles) Atherosclerotic heart disease of [place] coronary artery without angina pectoris Calculus of left kidney Cardiomyopathy COPD (chronic obstructive pulmonary disease) Depression Essential hypertension GERD (gastroesophageal reflux disease) Hyperlipidemia Hypertension Personal history of transient ischemic attack (TIA), and cerebral infarction without residual deficits Smoker TIA (transient ischemic attack) Tobacco abuse Home Medications aspirin 81 mg PO DAILY 07/21/18 [History Last Taken 07/05/20] omeprazole 40 mg PO DAILY 12/24/18 [History Last Taken 07/05/20] gabapentin 300 mg PO TID 06/05/20 [History Last Taken 07/05/20] venlafaxine 150 mg PO DAILY 06/05/20 [History Last Taken 07/05/20] Lactobacillus rhamnosus GG 10 billion cell capsule 1 cap PO DAILY #90 cap 06/08/20 [Rx Last Taken 07/05/20] lisinopril 10 mg tablet 10 mg PO DAILY #90 tab 06/08/20 [Rx Last Taken 07/05/20] carvedilol 12.5 mg tablet 12.5 mg PO BID #180 tab 07/02/20 [Rx Last Taken 07/05/20] albuterol sulfate [Ventolin HFA] 1 - 2 puff INHALATION Q4H PRN PRN #1 inhaler 06/15/21 [Rx Last Taken Unknown] dexamethasone 6 mg PO DAILY #6 tab 06/15/21 [Rx Last Taken Unknown] lorazepam 1 mg PO BID PRN PRN 06/15/21 [History Last Taken Unknown] Allergy/AdvReac Type Severity Reaction Status Date / Time No Known Allergies Allergy Verified 09/01/21 06:33 Family History Mother Hypertension CAD (coronary artery disease) CVA (cerebral vascular accident) Myocardial infarction Grandmother Myocardial infarction Surgical History History of total hysterectomy Hx of appendectomy Social History Smoking Status: Current every day smoker tobacco type: cigarettes alcohol intake: never substance use type: does not use Physical Exam Narrative Patient seen and evaluated at bedside along with the nursing staff Alert orientated x3 Are symptoms of chest pain resolved Cardiac examination; S1-S2 normal, no murmur, no systolic or diastolic murmur, no pericardial rub Chest examination; clear to auscultation bilateral. Examination lower extremity no clubbing no cyanosis no lower extremity edema Central nervous system exam no focal neurological deficit. Risk Stratification Risk Stratification Applicable: Yes Age >/= 65: No >/= 3 CAD Risk Factors (HTN, HLD, DM, family hx of CAD, or current smoker): Yes Aspirin Use in the Past 7 Days: Yes Severe Angina (>/= episodes in 24 hours): Yes EKG ST Changes >/= 0.5mm: No Positive Cardiac Marker: Yes CELESTE Risk Stratification Score: 4 CELESTE % Risk: 20% Risk Objective Data Vital Signs: Vital Signs Temp Pulse Resp BP Pulse Ox 97.7 F L 87 16 161/94 H 95 09/01/21 14:00 09/01/21 15:00 09/01/21 14:00 09/01/21 14:00 09/01/21 15:30 Oxygen Delivery Method Room Air Weight: 176 lb 2.389 oz Body Mass Index (BMI) 28.4 Lab / Micro Data Result Diagrams: 09/01/21 06:00 09/01/21 06:00 Labs: Laboratory Results - last 24 hr 09/01/21 06:00: WBC 9.1, RBC 4.63, Hgb 14.6, Hct 44.6, MCV 96.3, MCH 31.5, MCHC 32.7, RDW Std Deviation 49.6 H, RDW Coeff of Sariah 14.0, Plt Count 296, MPV 9.5, Immature Gran % (Auto) 0.200, Neut % (Auto) 40.7 L, Lymph % (Auto) 45.1 H, [place] % (Auto) 7.4, Eos % (Auto) 5.8 H, Baso % (Auto) 0.8, Absolute Neuts (auto) 3.7, Absolute Lymphs (auto) 4.10, Nucleated RBC % 0 09/01/21 06:00: Sodium 142, Potassium 3.8, Chloride 108 H, Carbon Dioxide 30.0, Anion Gap 4 L, BUN 20 H, Creatinine 0.93, Estim Creat Clear Calc 57.21, Est GFR (MDRD) Af Amer 78, Est GFR (MDRD) Non-Af 65, BUN/Creatinine Ratio 21.6 H, Glucose 127 H, Calcium 9.1, Troponin I High Sens 42 09/01/21 08:15: Troponin I High Sens 69 H 09/01/21 09:13: D-Dimer Quant (PE/DVT) 0.86 H* 09/01/21 13:05: Troponin I High Sens 197 H* Cardiology Labs/Tests 09/01/21 06:00: WBC 9.1, RBC 4.63, Hgb 14.6, Hct 44.6, MCV 96.3, MCH 31.5, MCHC 32.7, Plt Count 296, MPV 9.5, Immature Gran % (Auto) 0.200, Neut % (Auto) 40.7 L, Lymph % (Auto) 45.1 H, [place] % (Auto) 7.4, Eos % (Auto) 5.8 H, Baso % (Auto) 0.8, Absolute Neuts (auto) 3.7, Nucleated RBC % 0 09/01/21 06:00: Sodium 142, Potassium 3.8, Chloride 108 H, Carbon Dioxide 30.0, Anion Gap 4 L, BUN 20 H, Creatinine 0.93, Est GFR (MDRD) Af Amer 78, Est GFR (MDRD) Non-Af 65, BUN/Creatinine Ratio 21.6 H, Glucose 127 H, Calcium 9.1 09/01/21 09:13: D-Dimer Quant (PE/DVT) 0.86 H* Rhythm: Normal sinus rhythm with PVCs EKG; normal sinus rhythm, with unifocal PVC, nonspecific T wave inversion in the anterior lead Radiography Diagnostic Testing: Radiology Impression Chest X-Ray 09/01/21 06:35 IMPRESSION: Minimal left lung base opacities which may be due to underlying atelectasis or pneumonia. Electronically Signed: Karthik Jimenez MD at 6:52 EST Tel , Service support , Chest CTA 09/01/21 09:51 IMPRESSION: Normal CTA chest examination, without a demonstrated pulmonary embolism or arterial dissection. Electronically Signed: Shelton Gandhi MD at 11:09 EST Tel , Service support ,
[2021-09-01] MEDS: HEPARIN/D5w 25,000 UNITS 25,000 UNITS/250 ML IV.SOLN. 11 UNITS IV (16:16)
[2021-09-01] MEDS: Heparin Injection (Vial) 5,000 UNIT/ML VIAL 5000 UNIT IV (16:17)
[2021-09-01 16:29] LABS: Prothrombin Time (Protime)PT. 12.3 SECONDS (11.7-14.9)
[2021-09-01 16:30] LABS: Partial Thromboplast Time 27.5 Seconds (24.1-36.2)
[2021-09-01 16:38] LABS: Troponin-I HS 162 pg/mL (3.0-54.0)
--- NOTE | 2021-09-01 18:17 | CT_ITS ---
EXAM: CT HEAD WITHOUT INTRAVENOUS CONTRAST : 1955 CLINICAL INDICATION: confusion TECHNIQUE: Multiple axial images were obtained of the head without intravenous contrast. This CT exam was performed using one or more of the following dose reduction techniques: automated exposure control, adjustment of the mA and/or kV according to patient size, and/or use of iterative reconstruction technique. This report was created using [employer] report generation technology. COMPARISON: 06/17/2017 FINDINGS: BRAIN AND EXTRA-AXIAL SPACES: Unremarkable. No intra- or extra-axial hemorrhage. No evidence of acute infarct. No intracranial mass or mass effect. There is preservation of the hays/white matter interface. Posterior fossa structures are unremarkable. Ventricles are appropriate for age. No hydrocephalus. Basal cisterns are patent. BONES/JOINTS: Unremarkable. No discrete lytic or blastic abnormalities. SINUSES: Unremarkable as visualized. Clear. MASTOID AIR CELLS: Unremarkable. Clear. ORBITS: Visualized globes, extraocular muscles, optic nerves and retrobulbar fat appear unremarkable. CT/Brain/Head without Contrast IMPRESSION: Negative head/brain CT without intravenous contrast. There has been no change from the reference examination. Individualized dose optimization techniques were used for this CT. at 2033 Reported and signed by: Aman Wang MD Electronically Signed: Aman Wang MD at 20:32 EST Tel , Service support ,
[2021-09-01 18:43] LABS: Hemoglobin A1c 5.1 % (3.8-5.6)
[2021-09-01 18:45] LABS: Troponin-I HS 142 pg/mL (3.0-54.0)
[2021-09-01] MEDS: Atorvastatin Calcium 40 MG Tablet PO (22:15)
[2021-09-01] MEDS: Heparin Injection (Vial) 5,000 UNIT/ML VIAL 5000 UNIT SC (22:16)
[2021-09-01] MEDS: Morphine 2 MG/ML Syringe IV (22:17)
[2021-09-01] MEDS: 0.9% Saline Lock 10 ML Syringe IV (22:18)
[2021-09-01 22:23] LABS: Troponin-I HS 104 pg/mL (3.0-54.0)
[2021-09-02] VITALS: PULSE 84
[2021-09-02 04:00] VITALS: BP 169/106; PULSE 84; PULSE 89; RESP 15; TEMP 36.1; O2SAT 98
--- NOTE | 2021-09-02 05:55 | EKG12_ITS ---
Test Reason : AM EKG Blood Pressure : / mmHG Vent. Rate : 088 BPM Atrial Rate : 088 BPM P-R Int : 126 ms QRS Dur : 100 ms QT Int : 384 ms P-R-T Axes : 068 047 081 degrees QTc Int : 464 ms Normal sinus rhythm Normal ECG When compared with ECG of 01-SEP-2021 06:29, MANUAL COMPARISON REQUIRED, DATA IS UNCONFIRMED Confirmed by CECI MARTINEZ, GEO ([id number]), photo editor MICAH SALMERON ([id number]) on 09/03/2021 10:07:59 AM Referred By: DR ALCAZAR Confirmed By:GEO ORNELAS MD
[2021-09-02] MEDS: LORazepam 1 MG Tablet PO (06:22)
[2021-09-02] MEDS: Heparin Injection (Vial) 5,000 UNIT/ML VIAL 5000 UNIT SC ×2 (06:24→14:28)
[2021-09-02 06:27] LABS: Absolute Lymphocyte Count 3.19 X10^3/uL (0.83-4.51); Absolute Neutrophil Count 2.5 X10^3/uL (2.0-7.7); Basophil# 0.07 X10^3/uL; Basophil% 1.1 % (0-1); Eosinophil# 0.45 X10^3/uL; Eosinophils% 6.8 % (0-5); Hematocrit 38.6 % (37-47); Hemoglobin 12.8 g/dL (12.0-15.0); Lymphocyte # 3.19 X10^3/ul (0.83-4.51); Mean Corp Hgb Conc 33.2 g/dL (32-36); Mean Corpuscular Hgb 31.4 pg (27.0-32.0); Mean Corpuscular Volume 94.6 fL (81-99); Mean Platelet Vol. 9.3 fl (6.2-12.0); Monocyte# 0.43 X10^3/uL; Monocyte% 6.5 % (0-10); NRBC Flagged by Analyzer 0 % (0-5); Neutrophil # 2.49 X10^3/uL (2.7-7.7); Neutrophil % 37.4 % (47-70); Platelet Count 233 K/mm3 (150-450); RBC Distribution Width CV 14.2 % (11.6-14.6); Red Blood Count 4.08 M/mm3 (4.2-5.4); White Blood Count 6.6 K/mm3 (4.4-11.0)
[2021-09-02 06:54] LABS: ALB/GLOB Ratio 0.8 RATIO (0.9-2.4); AST(SGOT) 19 U/L (15-37); Alanine Aminotransfer ALT/SGPT 19 U/L (13-56); Albumin, Serum 2.9 g/dL (3.2-5.0); Alkaline Phosphatase 105 U/L (45-117); Anion Gap 5 (5-15); BUN 18 mg/dL (7-18); BUN/Creat Ratio 23.8 RATIO (10-20); Calcium,Total 8.9 mg/dL (8.5-10.1); Chloride 110 mmol/L (98-107); Cholesterol 195 mg/dL (200); Creatinine, Serum 0.76 mg/dL (0.55-1.02); EST Glomerular Filtration Rate 82 mL/min (>60); Est Glom Filt Rate - Afr Amer 99 mL/min (>60); Estimated Creatinine Clearance 70.01 ml/min; Globulin 3.7 g/dL (2.2-4.2); Glucose 99 mg/dL (74-106); High Density Lipoprotein 43 mg/dL; Potassium 4.1 mmol/L (3.5-5.1); Protein, Total 6.6 g/dL (6.4-8.2); Sodium Level 143 mmol/L (136-145); Triglycerides 193 mg/dL; Very Low Density Lipoprotein 39 mg/dL (5-40)
[2021-09-02 07:00] VITALS: PULSE 82
[2021-09-02] MEDS: Aspirin E.C. 81 MG Tablet PO (07:34)
--- NOTE | 2021-09-02 08:36 | PN.CARD_ITS ---
Subjective Subjective Patient seen and evaluated. Objective Data Vital Signs: Vital Signs Temp Pulse Resp BP Pulse Ox 97.0 F L 82 15 169/106 H 98 09/02/21 04:00 09/02/21 07:00 09/02/21 04:00 09/02/21 04:00 09/02/21 04:00 Oxygen Delivery Method Room Air Weight: 176 lb 2.389 oz Body Mass Index (BMI) 28.4 Intake & Output: Intake and Output for Last 24 Hours 08/31/21 09/01/21 09/02/21 23:59 23:59 23:59 Intake Total 8.43 / 8.43 100 / 100 Balance 8.43 / 8.43 100 / 100 Lab / Micro Data Result Diagrams: 09/02/21 06:12 09/02/21 06:12 Labs: Laboratory Results - last 24 hr 09/01/21 06:00: Hemoglobin A1c 5.1 09/01/21 08:15: Troponin I High Sens 69 H 09/01/21 09:13: D-Dimer Quant (PE/DVT) 0.86 H* 09/01/21 13:05: Troponin I High Sens 197 H* 09/01/21 16:05: Troponin I High Sens 162 H* 09/01/21 16:05: PT 12.3, INR 1.0, APTT 27.5 09/01/21 18:05: Troponin I High Sens 142 H* 09/01/21 21:49: Troponin I High Sens 104 H 09/02/21 06:12: WBC 6.6, RBC 4.08 L, Hgb 12.8, Hct 38.6, MCV 94.6, MCH 31.4, MCHC 33.2, RDW Std Deviation 49.0 H, RDW Coeff of Sariah 14.2, Plt Count 233, MPV 9.3, Immature Gran % (Auto) 0.200, Neut % (Auto) 37.4 L, Lymph % (Auto) 48.0 H, [place] % (Auto) 6.5, Eos % (Auto) 6.8 H, Baso % (Auto) 1.1 H, Absolute Neuts (auto) 2.5, Absolute Lymphs (auto) 3.19, Nucleated RBC % 0 09/02/21 06:12: Sodium 143, Potassium 4.1, Chloride 110 H, Carbon Dioxide 28.0, Anion Gap 5, BUN 18, Creatinine 0.76, Estim Creat Clear Calc 70.01, Est GFR (MDRD) Af Amer 99, Est GFR (MDRD) Non-Af 82, BUN/Creatinine Ratio 23.8 H, Glucose 99, Calcium 8.9, Total Bilirubin 0.30, AST 19, ALT 19, Alkaline Phosphatase 105, Total Protein 6.6, Albumin 2.9 L, Globulin 3.7, Albumin/Globulin Ratio 0.8 L, Triglycerides 193, Cholesterol 195, LDL Cholesterol 113, VLDL Cholesterol 39, HDL Cholesterol 43 Cardiology Labs/Tests 09/01/21 06:00: Hemoglobin A1c 5.1 09/01/21 09:13: D-Dimer Quant (PE/DVT) 0.86 H* 09/01/21 16:05: PT 12.3, INR 1.0, APTT 27.5 09/02/21 06:12: WBC 6.6, RBC 4.08 L, Hgb 12.8, Hct 38.6, MCV 94.6, MCH 31.4, MCHC 33.2, Plt Count 233, MPV 9.3, Immature Gran % (Auto) 0.200, Neut % (Auto) 37.4 L, Lymph % (Auto) 48.0 H, [place] % (Auto) 6.5, Eos % (Auto) 6.8 H, Baso % (Auto) 1.1 H, Absolute Neuts (auto) 2.5, Nucleated RBC % 0 09/02/21 06:12: Sodium 143, Potassium 4.1, Chloride 110 H, Carbon Dioxide 28.0, Anion Gap 5, BUN 18, Creatinine 0.76, Est GFR (MDRD) Af Amer 99, Est GFR (MDRD) Non-Af 82, BUN/Creatinine Ratio 23.8 H, Glucose 99, Calcium 8.9, Total Bilirubin 0.30, Triglycerides 193, Cholesterol 195, LDL Cholesterol 113, VLDL Cholesterol 39, HDL Cholesterol 43 Rhythm: EKG: ECHO: Stress Test: Cardiac Cath: PCI: CT Surgery: Holter monitor: EPS: PPM: CXR: Chest CT Scan: Radiography Diagnostic Testing: Radiology Impression Chest CTA 09/01/21 09:51 IMPRESSION: Normal CTA chest examination, without a demonstrated pulmonary embolism or arterial dissection. Electronically Signed: Shelton Gandhi MD at 11:09 EST Tel , Service support , Brain CT 09/01/21 18:17 IMPRESSION: Negative head/brain CT without intravenous contrast. There has been no change from the reference examination. Individualized dose optimization techniques were used for this CT. at 2033 Reported and signed by: Aman Wang MD Electronically Signed: Aman Wang MD at 20:32 EST Tel , Service support , Physical Exam Const alert, oriented x3 and no apparent distress General Appearance: cooperative HEENT hearing grossly normal bilaterally Head and Scalp: atraumatic Eyes EOMs intact bilaterally Neck General: normal visual inspection Chest inspection of chest normal and palpation of chest normal Resp normal respiratory effort Auscultation: clear to auscultation bilaterally Cardio regular rate, regular rhythm, S1 normal heart sound and S2 normal heart sound Jugular Venous Distention: JVD GI normal to inspection, nondistended, normoactive bowel sounds Extremity normal capillary refill and no pedal edema Peripheral Pulses: Yes pulses 2+ throughout and femoral pulses present Skin no rashes or lesions noted Neuro oriented x3 and CN's II-XII intact bilaterally Psych Appearance: grossly normal and appropriate Assessment & Plan Assessment/Plan (1) NSTEMI (non-ST elevated myocardial infarction): PLAN: Patient had a non-ST elevation myocardial infarction underwent a cardiac catheterization which demonstrated moderately severe disease noted in the distal left anterior descending artery with a corresponding wall motion abnormality. The exact significance of the lesion is not clear at this time. Would recommend that we obtain a pharmacologic myocardial perfusion stress test to look for viability in this area... Further recommendations will then be made Above discussed with interventionalists as well. Addendum: Myocardial perfusion stress test demonstrates evidence of a previous anterior apical infarct with no viability or ischemia. We will therefore recommend continued medical therapy. Would add a beta-cora to the regimen. Patient can be discharged for outpatient follow-up. (2) Essential hypertension: PLAN: Continue current medical therapy (3) Cardiomyopathy: QUALIFIERS: Cardiomyopathy type: unspecified Qualified Code(s): I42.9 - Cardiomyopathy, unspecified PLAN: Patient has a mild cardiomyopathy with anteroapical hypokinesis. Estimated ejection fraction is 45% Plan is to continue the current medical therapy
--- NOTE | 2021-09-02 09:07 | CASEMGMT ---
According to the [facility] website, the following are in-network tertiary facilities: [facility], [facility], [facility], [facility], [facility], [facility], [facility], [facility], [facility], and . Alysia NGUYEN CM
--- NOTE | 2021-09-02 10:28 | CL.D_ITS ---
Patient Name: ECHO KERNS Study Date: 09/02/2021 Performing: Rey Curtis MD Ht: 66.14 inches 168 cm : 1955 Wt: 176.37 lbs 80 kg Age: 65 Gender: female BSA: 1.9 PROCEDURE(S) PERFORMED [id number])LHC/COR/LV CLINICAL PROFILE AND INDICATIONS Indications: Suspected CAD Heart Failure: None Stress/Imaging Stress/Image Study Performed: No CONCLUSIONS Severe hypokinesis of the distal anterior apical wall with moderate disease noted in the distal left anterior descending artery. RECOMMENDATIONS We will recommend pharmacologic stress test for viability in the distal anterior wall. Depending on the results of those tests further recommendations will be made DESCRIPTION OF PROCEDURE The patient arrived to the procedure lab. The risks and benefits of the procedure as well as a full d escription of our services here and current unavailability of surgical backup were fully explained to the patient and/or their significant other prior to the catheterization. The Timeout was completed, verifying the correct patient and procedure. The patient's procedural site was prepped and draped in the usual fashion. Local anesthetic was given subcutaneously to right radial region with Lidocaine 2% . Using a modified Seldinger technique, arterial access was obtained via the right radial artery, a 6 Fr sheath was inserted. Left Coronary Artery selective angiography was performed in multiple views u sing a 5 Fr. 4.0 Oakwood catheter. Right Coronary Artery selective angiography was then performed in mu ltiple views using a 5 Fr. 4.0 Oakwood catheter. Left Ventriculography was performed in VINCENT projection using a 5 Fr. Pigtail catheter. LV to AO pullback pressures were then recorded.The arterial sheath was pulled and a TR Band was applied for hemostasis. 10cc of air CORONARY ANGIOGRAPHY DOMINANCE: Right Dominant LEFT HEART ASSESSMENT Left Ventricular Ejection Fraction: by LV Gram 45 % Anterior Hypokinesis - Severe. Apical Hypokinesis - Severe Depressed Left Ventricular systolic function LEFT MAIN: Angiographically normal LEFT ANTERIOR DESCENDING ARTERY: Mild disease noted in the proximal LAD and in the distal LAD there i s a long area of stenosis of approximately 70% and calcified. CIRCUMFLEX ARTERY: Mild luminal irregularities less than 30% RIGHT CORONARY ARTERY: Mild luminal irregularities less than 30% COMPLICATIONS No Complications PROCEDURE MEDICATIONS Fentanyl 50 mcg IV Versed 1 mg IV Versed 1 mg IV Oxygen: 2 L/min via nasal cannula Verapamil 2.5mg, Ntg 100mcgs,given IA 09/02/2021 08:12:05 SUMMARY OF HEMODYNAMIC DATA Time AIR REST ECG 07:49:08 Art 156/83 (110) 08:06:08 AO 122/75 (93) SA 08:13:11 LV 130/9, 43 08:18:26 LV 148/10, 11 08:18:32 LV 143/10, 12 08:19:30 LVp 143/11, 14 08:19:35 AOp 147/88 (113) 08:19:40 ECG 08:40:10 Signed By Rey Curtis MD On 09/02/2021 10:27:17 AM Rey Curtis MD
[2021-09-02 11:13] VITALS: BP 136/77; PULSE 95; RESP 18; TEMP 36.7; O2SAT 98
[2021-09-02] MEDS: Lisinopril 10 MG Tablet PO (11:15)
[2021-09-02] MEDS: Pantoprazole Sodium 40 MG Tablet PO (11:15)
[2021-09-02] MEDS: Venlafaxine XR 150 MG Capsule PO (11:15)
[2021-09-02] MEDS: 0.9% Normal Saline 1,000 ML 60 ML IV (11:16)
--- NOTE | 2021-09-02 11:42 | CASEMGMT ---
Addendum entered by Uma Riley 09/02/21 14:09: [facility] Physician Directory provided to patient. Original Note: RN JULITA Assessment: Face to Face with pt for initial transition planning/care coordination assessment. RN JULITA introduced self and role at [facility], pt voices understanding and consents to assessment. Patient sitting up in bed, in no apparent distress. Pt is A/O x4 and answers all questions appropriately at this time. Care providers, pharmacy, and demographics verified/updated. Admitting Dx: Chest pain PCP: None Specialists: Estephania- cardio, sees a counselor at [facility] Preferred Pharmacy: [facility] Insurance: [employer] Prescription Benefit: yes LW/HPOA: Patient denies having LW or HPOA. LNOK: DaughterMarleny Living Arrangements: Pt reports she is currently homeless, staying between her daughter and granddaughter's homes (occasionally with son's aunt as well). Patient reports independent with ADLs prior to hospitalization. Social: Smokes 1/2 ppd, denies ETOH use. Transportation: Does not drive. Granddaughter sometimes assists with transportation needs. Also uses cab provided by [employer] for transport to appointments. DME/HHC/SNF: Denies having any DME in home. Denies need for any DME. Denies previous HHC or SNF stays. Pt states no concerns with going home at time of dc. Pt states no further concerns/needs. CM to follow. Advised pt to ask CM if any further question/concerns/needs arise, voices understanding. Pt Goal: home Plan: home, plan to stay with granddaughter
--- NOTE | 2021-09-02 13:07 | STRESSREP ---
Stress Test Report Pharmacologic myocardial perfusion stress test. 65-year-old lady with a history of coronary disease. Stress protocol: Resting KG demonstrates a normal sinus rhythm with a rate of 86 bpm. Resting blood pressure is 128/94 mmHg. 0.4 mg of regadenoson was infused per usual protocol followed by rapid intravenous saline flush injection continuous EKG monitoring was performed. The maximum heart rate attained was 111 bpm which was 71% of max impact at heart rate the maximum workload was 1 metabolic equivalent. At rest there were no ST or T wave changes noted to suggest abnormal flow reserve and at peak infusion nonspecific ST changes were noted. No clinical angina was noted. Myocardial perfusion protocol. 12.0 mCi of technetium 99m sestamibi was injected at rest. 0.4 mg of regadenoson was infused per usual protocol. At peak infusion 36.0 mCi of technetium 99m sestamibi was injected stress images were obtained stress and rest images were reconstructed and compared in the short axis vertical long and horizontal long axis. Gated images were also obtained. Perfusion SPECT analysis: Review of the stress images demonstrate normal uptake of tracer noted in all areas of the myocardium except for the mid to distal anterior wall apex and inferior apical wall. The septum lateral wall and inferior wall appear to be well perfused. The resting images demonstrate a similar pattern suggestive of a previous extensive anterior apical infarct. No ischemia is noted and no viability is noted. Gated SPECT analysis: The gated ejection fraction is approximately 45%. Conclusion: Pharmacologic myocardial perfusion stress test with evidence of anterior apical infarct. No ischemia noted.
--- NOTE | 2021-09-02 14:11 | PCM.DC ---
Discharge Instructions Diet Discharge Diet: No restrictions Activity Discharge Activity: Return to Normal Activity Weight Bearing Status: Weight bearing as tolerated Dressing / Incision Call your doctor if you observe: Fever of 101 or Higher, Numbness or Tingling, Shortness of breath, Dizziness, Chest pain, Increased palpitations (irregular heartbeat) and Calf discomfort Follow Up Care Please Follow Up With: Primary care provider When: Within the next two weeks. Test Results: Test results from this visit will be discussed in further detail at your follow-up appointment, if applicable. Discharge Plan Admission Admit Date/Time: 09/01/21 20:47 Primary Reason for Your Visit: Chest pain Attending Provider: Jones Gregory Primary Care Provider: Care Physician,No Primary Consulting Providers: Ken Banda Instructions Patient Instructions: ED Chest Pain, Uncertain Cause Discharge Orders/Prescriptions Prescriptions: New carvedilol [Coreg] 3.125 mg tablet 3.125 mg PO BID Qty: 60 RF: 0 Continued lisinopril 10 mg tablet 10 mg PO DAILY Qty: 90 RF: 3 Culturelle 10 billion cell capsule 1 cap PO DAILY Qty: 90 RF: 2 aspirin 81 MG tablet 81 mg PO DAILY RF: 0 omeprazole 20 MG capsule 40 mg PO DAILY RF: 0 venlafaxine 150 MG capsule 150 mg PO DAILY RF: 0 gabapentin 300 MG capsule 300 mg PO TID RF: 0 lorazepam 1 mg tablet 1 mg PO BID PRN PRN (Reason: Anxiety) RF: 0 dexamethasone 6 MG tablet 6 mg PO DAILY Qty: 6 RF: 0 albuterol sulfate [Ventolin HFA] 1 INHALER inhaler 1 - 2 puff inhalation Q4H PRN PRN (Reason: Wheezing) Qty: 1 RF: 0 Discontinued carvedilol 12.5 mg tablet 12.5 mg PO BID Qty: 180 RF: 3 Referrals / Follow Up: Rey Curtis MD [STAFF PHYSICIAN] - Within 2 Weeks Adri Anne MD [STAFF PHYSICIAN] - See Referral Note (Referral made to establish primary care. ) Disposition Disposition (needs filled in before D/C Order can be placed): Home, Self Care
[2021-09-02 14:26] VITALS: BP 130/82; PULSE 87; RESP 18; TEMP 36.5; O2SAT 98
--- NOTE | 2021-09-02 14:26 | PCM.DC.SUM ---
Documented by User: João RIBERA 09/02/21 14:34 Providers Date of Admission: 09/01/21 Primary Care Physician: No Primary Care Phys Consultations 09/01/21 14:29 Consult: Cardiology Routine Consulting Provider: Ken Banda Reason for Consult: Chest pain, elevated troponin EMERGENT Consult: No MD Notified: Yes Date Notified: 09/01/21 Time Notified: 14:42 Method of Notification: Text Reason For Visit: CHEST PAIN Diagnosis Discharge Diagnosis (1) NSTEMI (non-ST elevated myocardial infarction): Status: Chronic Code(s): I21.4 - Non-ST elevation (NSTEMI) myocardial infarction (2) Essential hypertension: Status: Chronic Code(s): I10 - Essential (primary) hypertension (3) Cardiomyopathy: Status: Chronic Code(s): I42.9 - Cardiomyopathy, unspecified Qualifiers: Cardiomyopathy type: unspecified Qualified Code(s): I42.9 - Cardiomyopathy, unspecified Medications at Discharge Home Medications aspirin 81 mg PO DAILY 07/21/18 omeprazole 40 mg PO DAILY 12/24/18 gabapentin 300 mg PO TID 06/05/20 venlafaxine 150 mg PO DAILY 06/05/20 Lactobacillus rhamnosus GG 10 billion cell capsule 1 cap PO DAILY #90 cap 06/08/20 lisinopril 10 mg tablet 10 mg PO DAILY #90 tab 06/08/20 albuterol sulfate [Ventolin HFA] 1 - 2 puff INHALATION Q4H PRN PRN #1 inhaler 06/15/21 dexamethasone 6 mg PO DAILY #6 tab 06/15/21 lorazepam 1 mg PO BID PRN PRN 06/15/21 atorvastatin [Lipitor] 40 mg PO QHS #30 tab 09/02/21 carvedilol [Coreg] 3.125 mg PO BID #60 tab 09/02/21 Hospital Course Procedures Cardiac catheterization and Nuclear stress test Summary of Care Provided Minutes Spent on Discharge: 35 Hospital Course: Patient is a 65-year-old female who was admitted to the hospital on 09/01/2021 for evaluation and management of chest pain with a CELESTE score of 3 and heart score of 5. Cardiology was consulted recommend the patient admitted for stress test and catheterization as well as initiation of a heparin drip. Patient refused heparin drip on admission. Patient was evaluated by nuclear stress test which did not demonstrate any evidence of myocardial ischemia or infarction, ejection fraction was noted to be 45%. Cardiac catheterization performed which demonstrated severe hypokinesis of the distal anterior apical wall with moderate disease noted in the distal LAD with 70% stenosis. Recommendation was to reduce Coreg to 3.125 from 12.5mg and risk factor modification. Referral was put in for Dr. Anne to establish primary care and patient is to follow-up with Dr. Curtis within the next 2 weeks. Patient seen by João Hirsch PA-C, under the supervision of Dr. Gregory. Physical Exam Narrative Patient is a 65-year-old female who is comfortably resting in bed, alert and orient x3. Patient denies development of any new symptoms overnight. Does not appear in acute distress. Const alert, oriented x3 and no apparent distress HEENT normocephalic, head/scalp atraumatic and hearing grossly normal bilaterally Eyes PERRL, EOMs intact bilaterally and conjunctivae normal Neck no lymphadenopathy, supple and no JVD Resp normal respiratory effort, no retractions, no use of accessory muscles and clear to auscultation bilaterally Cardio regular rate, regular rhythm, no murmurs and no JVD GI normal to inspection, nondistended, normoactive bowel sounds, soft to palpation and non-tender Extremity normal to inspection, full ROM and no clubbing, cyanosis or edema Skin no rashes or lesions noted, no wounds and skin turgor normal Neuro CN's II-XII intact bilaterally Psych affect normal Weight / BMI Weight Weight: 176 lb 2.389 oz Body Mass Index (BMI) 28.4 ABG / Lab / Microbiology Data Result Diagrams: 09/02/21 06:12 09/02/21 06:12 Laboratory: Laboratory Results - last 24 hr 09/01/21 06:00: Hemoglobin A1c 5.1 09/01/21 16:05: Troponin I High Sens 162 H* 09/01/21 16:05: PT 12.3, INR 1.0, APTT 27.5 09/01/21 18:05: Troponin I High Sens 142 H* 09/01/21 21:49: Troponin I High Sens 104 H 09/02/21 06:12: WBC 6.6, RBC 4.08 L, Hgb 12.8, Hct 38.6, MCV 94.6, MCH 31.4, MCHC 33.2, RDW Std Deviation 49.0 H, RDW Coeff of Sariah 14.2, Plt Count 233, MPV 9.3, Immature Gran % (Auto) 0.200, Neut % (Auto) 37.4 L, Lymph % (Auto) 48.0 H, [place] % (Auto) 6.5, Eos % (Auto) 6.8 H, Baso % (Auto) 1.1 H, Absolute Neuts (auto) 2.5, Absolute Lymphs (auto) 3.19, Nucleated RBC % 0 09/02/21 06:12: Sodium 143, Potassium 4.1, Chloride 110 H, Carbon Dioxide 28.0, Anion Gap 5, BUN 18, Creatinine 0.76, Estim Creat Clear Calc 70.01, Est GFR (MDRD) Af Amer 99, Est GFR (MDRD) Non-Af 82, BUN/Creatinine Ratio 23.8 H, Glucose 99, Calcium 8.9, Total Bilirubin 0.30, AST 19, ALT 19, Alkaline Phosphatase 105, Total Protein 6.6, Albumin 2.9 L, Globulin 3.7, Albumin/Globulin Ratio 0.8 L, Triglycerides 193, Cholesterol 195, LDL Cholesterol 113, VLDL Cholesterol 39, HDL Cholesterol 43 Radiography Diagnostic Testing: Radiology Impression Brain CT 09/01/21 18:17 IMPRESSION: Negative head/brain CT without intravenous contrast. There has been no change from the reference examination. Individualized dose optimization techniques were used for this CT. at 2033 Reported and signed by: Aman Wang MD Electronically Signed: Aman Wang MD at 20:32 EST Tel , Service support , D/C Instructions Discharge Diet: No restrictions Weight Bearing Status: Weight bearing as tolerated Call your doctor if you observe: Fever of 101 or Higher, Numbness or Tingling, Shortness of breath, Dizziness, Chest pain, Increased palpitations (irregular heartbeat) and Calf discomfort Please Follow Up With: Primary care provider When: Within the next two weeks. Meaningful Use Info Meaningful Use Diagnoses (Choose all that apply): None applicable Discharge Plan Admission Admit Date/Time: 09/01/21 20:47 Primary Reason for Your Visit: Chest pain Attending Provider: Jones Gregory Primary Care Provider: Care Physician,No Primary Consulting Providers: Ken Banda Instructions Patient Instructions: ED Chest Pain, Uncertain Cause Discharge Orders/Prescriptions Prescriptions: New carvedilol [Coreg] 3.125 mg tablet 3.125 mg PO BID Qty: 60 RF: 0 atorvastatin [Lipitor] 40 mg tablet 40 mg PO QHS Qty: 30 RF: 0 Continued lisinopril 10 mg tablet 10 mg PO DAILY Qty: 90 RF: 3 Culturelle 10 billion cell capsule 1 cap PO DAILY Qty: 90 RF: 2 aspirin 81 MG tablet 81 mg PO DAILY RF: 0 omeprazole 20 MG capsule 40 mg PO DAILY RF: 0 venlafaxine 150 MG capsule 150 mg PO DAILY RF: 0 gabapentin 300 MG capsule 300 mg PO TID RF: 0 lorazepam 1 mg tablet 1 mg PO BID PRN PRN (Reason: Anxiety) RF: 0 dexamethasone 6 MG tablet 6 mg PO DAILY Qty: 6 RF: 0 albuterol sulfate [Ventolin HFA] 1 INHALER inhaler 1 - 2 puff inhalation Q4H PRN PRN (Reason: Wheezing) Qty: 1 RF: 0 Discontinued carvedilol 12.5 mg tablet 12.5 mg PO BID Qty: 180 RF: 3 Referrals / Follow Up: Rey Curtis MD [STAFF PHYSICIAN] - Within 2 Weeks Adri Anne MD [STAFF PHYSICIAN] - See Referral Note (Referral made to establish primary care. ) Disposition Disposition (needs filled in before D/C Order can be placed): Home, Self Care Documented by User: Dr. Jones Gregory MD 09/02/21 14:45 Providers Date of Admission: 09/01/21 Reason For Visit: CHEST PAIN Medications at Discharge Home Medications aspirin 81 mg PO DAILY 07/21/18 omeprazole 40 mg PO DAILY 12/24/18 gabapentin 300 mg PO TID 06/05/20 venlafaxine 150 mg PO DAILY 06/05/20 Lactobacillus rhamnosus GG 10 billion cell capsule 1 cap PO DAILY #90 cap 06/08/20 lisinopril 10 mg tablet 10 mg PO DAILY #90 tab 06/08/20 albuterol sulfate [Ventolin HFA] 1 - 2 puff INHALATION Q4H PRN PRN #1 inhaler 06/15/21 dexamethasone 6 mg PO DAILY #6 tab 06/15/21 lorazepam 1 mg PO BID PRN PRN 06/15/21 atorvastatin [Lipitor] 40 mg PO QHS #30 tab 09/02/21 carvedilol [Coreg] 3.125 mg PO BID #60 tab 09/02/21 Hospital Course Summary of Care Provided Minutes Spent on Discharge: 35 Hospital Course: This patient was seen in conjunction with João Hirsch PA-C. I have independently interviewed and examined the patient and reviewed pertinent historical, laboratory, and other data. Please refer to João Hirsch PA-C's note for details of this patient's presentation, findings, and recommendations. I have reviewed João Hirsch PA-C's note and concur with documented findings. In brief, patient is a 65-year-old lady with multiple comorbidities including dyslipidemia hypertension who presented with chest pain and assessment of acute non-STEMI made admitted to a monitored bed for subsequent management. Patient underwent subsequent evaluation with heart catheterization which demonstrated moderately severe disease in the distal LAD with corresponding wall motion abnormalities. Subsequently underwent a nuclear stress test which demonstrated evidence of a previous anterior apical infarct no ischemia. Cardiology subsequently recommended optimization of medical therapy Hospital course: As documented above ABG / Lab / Microbiology Data Result Diagrams: 09/02/21 06:12 09/02/21 06:12 Discharge Plan Admission Admit Date/Time: 09/01/21 20:47 Primary Reason for Your Visit: Chest pain Attending Provider: Jones Gregory Primary Care Provider: Care Physician,No Primary Consulting Providers: Ken Banda Instructions Patient Instructions: ED Chest Pain, Uncertain Cause Discharge Orders/Prescriptions Prescriptions: New carvedilol [Coreg] 3.125 mg tablet 3.125 mg PO BID Qty: 60 RF: 0 atorvastatin [Lipitor] 40 mg tablet 40 mg PO QHS Qty: 30 RF: 0 Continued lisinopril 10 mg tablet 10 mg PO DAILY Qty: 90 RF: 3 Culturelle 10 billion cell capsule 1 cap PO DAILY Qty: 90 RF: 2 aspirin 81 MG tablet 81 mg PO DAILY RF: 0 omeprazole 20 MG capsule 40 mg PO DAILY RF: 0 venlafaxine 150 MG capsule 150 mg PO DAILY RF: 0 gabapentin 300 MG capsule 300 mg PO TID RF: 0 lorazepam 1 mg tablet 1 mg PO BID PRN PRN (Reason: Anxiety) RF: 0 dexamethasone 6 MG tablet 6 mg PO DAILY Qty: 6 RF: 0 albuterol sulfate [Ventolin HFA] 1 INHALER inhaler 1 - 2 puff inhalation Q4H PRN PRN (Reason: Wheezing) Qty: 1 RF: 0 Discontinued carvedilol 12.5 mg tablet 12.5 mg PO BID Qty: 180 RF: 3 Referrals / Follow Up: Rey Curtis MD [STAFF PHYSICIAN] - Within 2 Weeks Adri Anne MD [STAFF PHYSICIAN] - See Referral Note (Referral made to establish primary care. ) Disposition Disposition (needs filled in before D/C Order can be placed): Home, Self Care Charges/Coding Visit Charges Inpatient E&M: 47117 Disch Hosp
[2021-09-02] MEDS: oxyCODONE 5 MG Tablet PO (14:27)
[2021-09-02] MEDS: LORazepam 0.5 MG Tablet PO (14:28)
== END 2021-09-02 15:47 | disposition home or self-care (01) | DRG 281 ==
LOC: ED 11:49 → PCU 12:11
PROVIDERS: Emergency Medicine; Internal Medicine Interventional Cardiology; Admitting Provider Internal Medicine; Emergency Provider Emergency Medicine; Visit Provider Internal Medicine
DX: I21.4 Non-ST elevation (NSTEMI) myocardial infarction (principal); I42.9 Cardiomyopathy, unspecified; I25.10 Atherosclerotic heart disease of native coronary artery without angina pectoris; I11.9 Hypertensive heart disease without heart failure; E78.5 Hyperlipidemia, unspecified; J44.9 Chronic obstructive pulmonary disease, unspecified; K21.9 Gastro-esophageal reflux disease without esophagitis; E66.9 Obesity, unspecified; G47.33 Obstructive sleep apnea (adult) (pediatric); F17.210 Nicotine dependence, cigarettes, uncomplicated; F11.29 Opioid dependence with unspecified opioid-induced disorder; F32.A Depression, unspecified; F41.9 Anxiety disorder, unspecified; Z68.30 Body mass index [BMI] 30.0-30.9, adult; Z91.14 Patient's other noncompliance with medication regimen; Z79.82 Long term (current) use of aspirin; Z79.899 Other long term (current) drug therapy; Z86.73 Personal history of transient ischemic attack (TIA), and cerebral infarction without residual deficits; Z82.49 Family history of ischemic heart disease and other diseases of the circulatory system
CPT/HCPCS: 36415; 70450; 71045; 71275; 78452; 80048; 80053; 80061; 83036; 84484; 85025; 85379; 85610; 85730; 93005; 93017; 93306; 93458; 97802; 99152; 99153; 99285; 99406; A9500; J7030; Q9957; Q9967; A4216; C1769; C1894; C8929; J2785

== ENCOUNTER 2021-11-17 14:40 | Emergency (ER) | payer MEDICARE, MEDICAID, SELFPAY ==
[2021-11-17 14:42] VITALS: BP 143/109; PULSE 108; RESP 18; TEMP 36.6; O2SAT 94; BMI 27.4
--- NOTE | 2021-11-17 15:27 | EKG12_ITS ---
Test Reason : SOB Blood Pressure : / mmHG Vent. Rate : 101 BPM Atrial Rate : 101 BPM P-R Int : 124 ms QRS Dur : 094 ms QT Int : 344 ms P-R-T Axes : 063 031 076 degrees QTc Int : 446 ms Sinus tachycardia Septal infarct , age undetermined Abnormal ECG Confirmed by CECI MARTINEZ, GEO ([id number]), map editor MICAH SALMERON ([id number]) on 11/19/2021 9:26:55 AM Referred By: DION Confirmed By:GEO ORNELAS MD
--- NOTE | 2021-11-17 15:27 | EX.ED.DYSGE1 ---
HPI History of Present Illness Chief Complaint: General Illness Detail of Chief Complaint: Dyspnea with exertion/wheezing Informant: patient Onset/Context/Timing Onset: Days (2) Context: Gradual Onset Timing: Intermittent Quality: Wheezing Location: Chest Current Severity: Gone Maximum Severity: Moderate Worsened by: Exertion Relieved by: Rest Narrative Narrative: Patient states she feels like she is getting bronchitis over the last 2 days, wheezing mostly when she exerts herself, better when she rests. No chest discomfort. No coughing or fevers. No edema in her legs or orthopnea. She states she was at urgent care for this and they sent her to the ER. Incidentally she also states she has had painful numbness and tingling in her feet that occasionally radiates up to her mid honeycutt bilaterally for the past year or more. Yesterday it made her fall, she did not injure herself. She states she is already on gabapentin for this and otherwise it is no different. She is able to walk fine for the most part. She states she does not know if she has COPD or not, it is in her medical history. She is not on oxygen. She does not see a pr specialist. [facility] Medical History Anxiety and depression Atherosclerotic heart disease of [place] coronary artery without angina pectoris Calculus of left kidney COPD (chronic obstructive pulmonary disease) Essential hypertension GERD (gastroesophageal reflux disease) History of non-ST elevation myocardial infarction (NSTEMI) (09/01/21) Hyperlipidemia Ischemic cardiomyopathy Obesity (BMI 30.0-34.9) Old anterior wall myocardial infarction Opiate dependence EVELYN (obstructive sleep apnea) Personal history of transient ischemic attack (TIA), and cerebral infarction without residual deficits TIA (transient ischemic attack) Tobacco abuse Home Medications aspirin 81 mg PO DAILY 07/21/18 [History Last Taken 07/05/20] omeprazole 40 mg PO DAILY 12/24/18 [History Last Taken 07/05/20] gabapentin 300 mg PO TID 06/05/20 [History Last Taken 07/05/20] venlafaxine 150 mg PO DAILY 06/05/20 [History Last Taken 07/05/20] Lactobacillus rhamnosus GG 10 billion cell capsule 1 cap PO DAILY #90 cap 06/08/20 [Rx Last Taken 07/05/20] lisinopril 10 mg tablet 10 mg PO DAILY #90 tab 06/08/20 [Rx Last Taken 07/05/20] albuterol sulfate [Ventolin HFA] 1 - 2 puff INHALATION Q4H PRN PRN #1 inhaler 06/15/21 [Rx Last Taken Unknown] dexamethasone 6 mg PO DAILY #6 tab 06/15/21 [Rx Last Taken Unknown] lorazepam 1 mg PO BID PRN PRN 06/15/21 [History Last Taken Unknown] atorvastatin [Lipitor] 40 mg PO QHS #30 tab 09/02/21 [Rx Last Taken Unknown] carvedilol [Coreg] 3.125 mg PO BID #60 tab 09/02/21 [Rx Last Taken Unknown] prednisone 40 mg PO DAILY #8 tablet 11/17/21 [Rx Last Taken Unknown] Allergy/AdvReac Type Severity Reaction Status Date / Time No Known Allergies Allergy Verified 11/17/21 14:44 Family History Mother Hypertension CAD (coronary artery disease) CVA (cerebral vascular accident) Myocardial infarction Grandmother Myocardial infarction Surgical History (Updated 09/16/21 @ 08:34 by Hawa Iyer) History of left heart catheterization (09/02/21) History of total hysterectomy Hx of appendectomy Social History Smoking Status: Current every day smoker tobacco type: cigarettes alcohol intake: never substance use type: does not use ROS ROS ED Constitutional Constitutional ED: Denies chills or fever(s) Eyes Eyes: Denies change in vision or diplopia ENT ENT ED: Denies rhinorrhea or sore throat Cardiovascular Cardiovascular: Denies chest pain or palpitations Respiratory/Chest Respiratory/Chest: Reports dyspnea on exertion and wheezing; Denies cough Gastrointestinal Gastrointestinal: Denies abdominal pain, diarrhea, nausea or vomiting Genitourinary Genitourinary ED: Denies dysuria or hematuria Musculoskeletal Musculoskeletal: Denies back pain or neck pain Integumentary Denies abscess or rash Neurologic Neurologic: Reports as per HPI and paresthesias; Denies headache(s) or weakness Psychiatric Psychiatric: Denies anxiety or suicidal thoughts EXAM Physical Exam Const Vital Signs: 11/17/21 14:42 11/17/21 15:09 11/17/21 15:42 Temperature 97.8 F Temperature Source Temporal Pulse Rate 108 H 105 H Respiratory Rate 18 16 Respiratory Effort Normal Respiratory Pattern Normal Normal Blood Pressure 143/109 H Blood Pressure Mean 120 Pulse Ox 94 Oxygen Delivery Method Room Air Positive well nourished and well developed General Appearance ED: well developed and NAD HEENT Reports moist mucous membranes normocephalic and atraumatic Eyes PERRL and EOMs intact bilaterally Neck full ROM and supple Resp normal respiratory effort and clear to auscultation bilaterally Resp Narrative: Diminished throughout, symmetrically Cardio regular rate, regular rhythm and no murmurs GI non-tender and non-distended Auscultation: normoactive bowel sounds Palpation: soft Back/Spine no CVA tenderness General Back: other FROM Extremity normal to inspection General Extremety ED: Negative for edema, pulses abnormal or tenderness General Extremity: Negative for edema or pulses abnormal Neuro oriented x3 and CN's II-XII intact bilaterally Neuro Narrative: Decreased sensation in feet, gross sensory intact. Strong posterior tibial pulses bilaterally. Sensorium / Orientation: awake and alert Motor Exam: strength 5/5 throughout Skin no rashes or lesions noted and no wounds MDM MDM MDM Narrative Medical decision making narrative: EKG and x-ray unremarkable. Patient was given a duo nebulizer treatment although she is not symptomatic at rest, she did states she is able to walk around better afterwards. Will prescribe her a short course of prednisone, just a 5-day burst without a taper, for what may be increased COPD symptoms due to the local extreme weather changes recently. She is not having any increased cough or sputum production to warrant antibiotics at this time. She is comfortable with that plan we discussed reasons to return and follow-up recommended. Radiography Chest X-Ray - ED: 2 View, Read by ED Physician, No Acute Disease, Chronic Changes and No Infiltrates Diagnostic Testing: Clinical Impression(s) from Imaging Studies Chest X-Ray 11/17/21 15:30 IMPRESSION: COPD. No acute cardiopulmonary process. Electronically Signed: Jose Bejarano MD at 16:06 EDT , EKG Initial EKG: Attestation: I personally reviewed and interpreted this EKG as follows: Interpretation: No Acute Injury Pattern, Sinus Tachycardia and Non-Specific ST Changes Prior EKG tracings: available for review Prior: Unchanged Discharge Plan Triage Chief Complaint: General Illness ED Provider: Linus Byers Dx/Rx/DC Orders Clinical Impression: COPD exacerbation, Peripheral neuropathy Instructions: ED COPD Flare Prescriptions: New prednisone 20 MG tablet 40 mg PO DAILY Qty: 8 RF: 0 No Action lisinopril 10 mg tablet 10 mg PO DAILY Qty: 90 RF: 3 Culturelle 10 billion cell capsule 1 cap PO DAILY Qty: 90 RF: 2 aspirin 81 MG tablet 81 mg PO DAILY RF: 0 omeprazole 20 MG capsule 40 mg PO DAILY RF: 0 venlafaxine 150 MG capsule 150 mg PO DAILY RF: 0 gabapentin 300 MG capsule 300 mg PO TID RF: 0 lorazepam 1 mg tablet 1 mg PO BID PRN PRN (Reason: Anxiety) RF: 0 dexamethasone 6 MG tablet 6 mg PO DAILY Qty: 6 RF: 0 albuterol sulfate [Ventolin HFA] 1 INHALER inhaler 1 - 2 puff inhalation Q4H PRN PRN (Reason: Wheezing) Qty: 1 RF: 0 carvedilol [Coreg] 3.125 mg tablet 3.125 mg PO BID Qty: 60 RF: 0 atorvastatin [Lipitor] 40 mg tablet 40 mg PO QHS Qty: 30 RF: 0 Primary Care Provider: Care Physician,No Primary Referrals: Care Physician,No Primary [Primary Care Provider] - Doctor,Your [STAFF PHYSICIAN] - 3-5 Days if not improving Disposition Disposition: Home, Self Care
--- NOTE | 2021-11-17 15:30 | RAD_ITS ---
STUDY: X-RAY CHEST REASON FOR EXAM: Female, 65 years old. dyspnea w/ exertion/wheezing TECHNIQUE: 2 views COMPARISON: 09/01/2021 FINDINGS: Cardiomediastinal silhouette is unremarkable. Costophrenic angles are sharp. Lungs are hyperinflated but clear. The trachea is midline. There is no pneumothorax. The bones are osteopenic. Mild multilevel thoracic spondylosis is noted. RAD/Chest PA and Lateral IMPRESSION: COPD. No acute cardiopulmonary process. Electronically Signed: Jose Bejarano MD at 16:06 EDT ,
[2021-11-17] MEDS: Ipratropium/Albuterol Sulfate 3 ML AMPUL.NEB INHALATION (15:40)
[2021-11-17 15:42] VITALS: PULSE 105; RESP 16
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
[2021-11-17] MEDS: predniSONE 20 MG Tablet 40 MG PO (16:31)
--- NOTE | 2021-11-17 16:51 | ED.RN ---
Patient refusing to wait for prescription medication to come from pharmacy. Dr. Byers notified.
== END 2021-11-17 16:51 | disposition home or self-care (01) ==
PROVIDERS: Emergency Provider Emergency Medicine; Visit Provider Emergency Medicine
DX: J44.1 Chronic obstructive pulmonary disease with (acute) exacerbation (principal); I10 Essential (primary) hypertension; G62.9 Polyneuropathy, unspecified; E78.5 Hyperlipidemia, unspecified; I25.10 Atherosclerotic heart disease of native coronary artery without angina pectoris; I25.5 Ischemic cardiomyopathy; G47.00 Insomnia, unspecified; F17.210 Nicotine dependence, cigarettes, uncomplicated; Z79.82 Long term (current) use of aspirin; Z59.00 Homelessness unspecified; Z79.899 Other long term (current) drug therapy
CPT/HCPCS: 71046; 93005; 94640; 99283

== ENCOUNTER 2021-11-25 19:56 | Emergency (ER) | payer MEDICARE, MEDICAID, SELFPAY ==
[2021-11-25 19:57] VITALS: BP 168/89; PULSE 107; RESP 18; TEMP 36.1; O2SAT 97; BMI 27.6
--- NOTE | 2021-11-25 21:53 | EDS_ITS ---
HPI History of Present Illness Chief Complaint: Back Narrative Narrative: 65-year-old homeless female presenting for evaluation. She states he slept on a friend's couch last night and now she has low back that hurts. No direct trauma.. She has chronic peripheral neuropathy as well. 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 She has not made any follow-up appointments with her regular physicians. Patient states that she has anxiety and this makes her nauseous. She states the anxiety is based on the fact that she is homeless. She is currently trying to formulate a plan to go back to [place]. [facility] Medical History Anxiety and depression Atherosclerotic heart disease of [place] coronary artery without angina pectoris Calculus of left kidney COPD (chronic obstructive pulmonary disease) Depression Essential hypertension GERD (gastroesophageal reflux disease) History of non-ST elevation myocardial infarction (NSTEMI) (09/01/21) Hyperlipidemia Ischemic cardiomyopathy Kidney stones Myocardial infarct Obesity (BMI 30.0-34.9) Old anterior wall myocardial infarction Opiate dependence EVELYN (obstructive sleep apnea) Osteoporosis Personal history of transient ischemic attack (TIA), and cerebral infarction without residual deficits Smoker TIA (transient ischemic attack) Tobacco abuse Home Medications aspirin 81 mg PO DAILY 07/21/18 [History Last Taken 07/05/20] omeprazole 40 mg PO DAILY 12/24/18 [History Last Taken 07/05/20] gabapentin 300 mg PO TID 06/05/20 [History Last Taken 07/05/20] venlafaxine 150 mg PO DAILY 06/05/20 [History Last Taken 07/05/20] Lactobacillus rhamnosus GG 10 billion cell capsule 1 cap PO DAILY #90 cap 06/08/20 [Rx Last Taken 07/05/20] lisinopril 10 mg tablet 10 mg PO DAILY #90 tab 06/08/20 [Rx Last Taken 07/05/20] albuterol sulfate [Ventolin HFA] 1 - 2 puff INHALATION Q4H PRN PRN #1 inhaler 06/15/21 [Rx Last Taken Unknown] dexamethasone 6 mg PO DAILY #6 tab 06/15/21 [Rx Last Taken Unknown] lorazepam 1 mg PO BID PRN PRN 06/15/21 [History Last Taken Unknown] atorvastatin [Lipitor] 40 mg PO QHS #30 tab 09/02/21 [Rx Last Taken Unknown] carvedilol [Coreg] 3.125 mg PO BID #60 tab 09/02/21 [Rx Last Taken Unknown] prednisone 40 mg PO DAILY #8 tablet 11/17/21 [Rx Last Taken Unknown] ondansetron 4 mg PO DAILY #10 tab 11/25/21 [Rx Last Taken Unknown] Allergy/AdvReac Type Severity Reaction Status Date / Time No Known Allergies Allergy Verified 11/25/21 20:01 Family History Mother Hypertension CAD (coronary artery disease) CVA (cerebral vascular accident) Myocardial infarction Grandmother Myocardial infarction Surgical History History of hysterectomy History of left heart catheterization (09/02/21) History of total hysterectomy Hx of appendectomy Social History Smoking Status: Current every day smoker tobacco type: cigarettes alcohol intake: never substance use type: does not use ROS ROS ED Constitutional Constitutional ED: Denies chills or fever(s) Eyes Eyes: Denies blurry vision or change in vision ENT ENT ED: Denies rhinorrhea or sore throat Cardiovascular Cardiovascular: Denies chest pain or palpitations Respiratory/Chest Respiratory/Chest: Denies cough or dyspnea Gastrointestinal Gastrointestinal: Reports nausea; Denies abdominal pain or vomiting Genitourinary Genitourinary ED: Denies dysuria or hematuria Musculoskeletal Musculoskeletal: Reports back pain; Denies arthralgias or myalgias Integumentary Denies rash Neurologic Neurologic: Denies headache(s) Psychiatric Psychiatric: Denies anxiety or depression EXAM Physical Exam Const Vital Signs: 11/25/21 19:57 11/25/21 22:03 Temperature 96.9 F L Temperature Source Temporal Pulse Rate 107 H 78 Respiratory Rate 18 16 Blood Pressure 168/89 H 167/105 H Blood Pressure Mean 115 Pulse Ox 97 96 Oxygen Delivery Method Room Air Positive well nourished General Appearance ED: NAD HEENT atraumatic Eyes PERRL Neck full ROM GI normal to inspection, nondistended, normoactive bowel sounds Back/Spine normal to inspection and no thoracic nor lumbar tenderness Extremity normal to inspection Neuro oriented x3 and CN's II-XII intact bilaterally Sensorium / Orientation: alert Psych mental status grossly normal Skin no rashes or lesions noted MDM MDM MDM Narrative Medical decision making narrative: Initially the patient was complaining of back pain. On examination I found no reproducible back pain. At this point she started stating that her legs hurt but this is a chronic issue and that she has gabapentin is prescribed to her for this. She also states she slept on a couch last night which may be adding to this. She did express that her anxiety is making her little bit nauseous and she was given Zofran for this which did help. I will give her a prescription for Zofran. I counseled on icing and stretching. I do not believe she needs blood work or imaging. Patient is use ibuprofen and Tylenol and alternating doses at home for pain. Impression: 1. Back pain 2. Nausea Lab Data Attestation: I reviewed the patient's lab results. Discharge Plan Triage Chief Complaint: Back ED Provider: Juan David Chambers Dx/Rx/DC Orders Instructions: Nausea Vomit Control Prescriptions: New ondansetron 4 mg tablet,disintegrating 4 mg PO DAILY Qty: 10 RF: 0 No Action lisinopril 10 mg tablet 10 mg PO DAILY Qty: 90 RF: 3 Culturelle 10 billion cell capsule 1 cap PO DAILY Qty: 90 RF: 2 aspirin 81 MG tablet 81 mg PO DAILY RF: 0 omeprazole 20 MG capsule 40 mg PO DAILY RF: 0 venlafaxine 150 MG capsule 150 mg PO DAILY RF: 0 gabapentin 300 MG capsule 300 mg PO TID RF: 0 lorazepam 1 mg tablet 1 mg PO BID PRN PRN (Reason: Anxiety) RF: 0 dexamethasone 6 MG tablet 6 mg PO DAILY Qty: 6 RF: 0 albuterol sulfate [Ventolin HFA] 1 INHALER inhaler 1 - 2 puff inhalation Q4H PRN PRN (Reason: Wheezing) Qty: 1 RF: 0 carvedilol [Coreg] 3.125 mg tablet 3.125 mg PO BID Qty: 60 RF: 0 atorvastatin [Lipitor] 40 mg tablet 40 mg PO QHS Qty: 30 RF: 0 prednisone 20 MG tablet 40 mg PO DAILY Qty: 8 RF: 0 Primary Care Provider: Care Physician,No Primary Referrals: Care Physician,No Primary [Primary Care Provider] - Disposition Disposition: Home, Self Care Discharge Date/Time: 11/25/21 22:06
[2021-11-25] MEDS: Ondansetron ODT 4 MG Tablet PO (21:58)
[2021-11-25 22:03] VITALS: BP 167/105; PULSE 78; RESP 16; O2SAT 96
== END 2021-11-25 22:06 | disposition home or self-care (01) ==
PROVIDERS: Emergency Provider Student in an Organized Health Care Education/Training Program; Visit Provider Student in an Organized Health Care Education/Training Program
DX: M54.50 Low back pain, unspecified (principal); J44.9 Chronic obstructive pulmonary disease, unspecified; R11.0 Nausea; I25.5 Ischemic cardiomyopathy; I10 Essential (primary) hypertension; I25.2 Old myocardial infarction; E78.5 Hyperlipidemia, unspecified; I25.10 Atherosclerotic heart disease of native coronary artery without angina pectoris; M81.0 Age-related osteoporosis without current pathological fracture; K21.9 Gastro-esophageal reflux disease without esophagitis; F32.A Depression, unspecified; F41.9 Anxiety disorder, unspecified; F17.210 Nicotine dependence, cigarettes, uncomplicated; E66.9 Obesity, unspecified; Z68.27 Body mass index [BMI] 27.0-27.9, adult; Z59.00 Homelessness unspecified; Z79.82 Long term (current) use of aspirin; Z79.899 Other long term (current) drug therapy; Z86.73 Personal history of transient ischemic attack (TIA), and cerebral infarction without residual deficits
CPT/HCPCS: 99282

== ENCOUNTER 2022-01-01 01:41 | Emergency (ER) | payer MEDICARE, MEDICAID, SELFPAY ==
[2022-01-01 01:43] VITALS: BP 164/105; PULSE 86; RESP 22; TEMP 36.3; O2SAT 99; BMI 29.5
[2022-01-01 01:47] VITALS: BMI 29.5
[2022-01-01 02:00] LABS: Bedside Glucose 111 mg/dL (74-106)
--- NOTE | 2022-01-01 03:22 | EKG12_ITS ---
Test Reason : DYSRHYTHMIA Blood Pressure : / mmHG Vent. Rate : 087 BPM Atrial Rate : 087 BPM P-R Int : 122 ms QRS Dur : 098 ms QT Int : 384 ms P-R-T Axes : 064 052 081 degrees QTc Int : 462 ms Sinus rhythm with occasional Premature ventricular complexes and Premature atrial complexes Septal infarct , age undetermined Abnormal ECG Confirmed by GASPER MARTINEZ, PATRICK ([id number]), associate editor MICAH SALMERON ([id number]) on 01/02/2022 9:05:00 AM Referred By: SHANA Confirmed By:PATRICK JACKMAN MD
--- NOTE | 2022-01-01 03:23 | CT_ITS ---
EXAM: CT HEAD WITHOUT INTRAVENOUS CONTRAST CLINICAL INDICATION: vision change TECHNIQUE: Multiple axial images were obtained of the head without intravenous contrast. This CT exam was performed using one or more of the following dose reduction techniques: automated exposure control, adjustment of the mA and/or kV according to patient size, and/or use of iterative reconstruction technique. This report was created using [employer] report generation technology. RADIATION DOSE: CTDIvol = 44.99 mGy, DLP = 812.98 mGy-cm COMPARISON: September 01, 2021. FINDINGS: BRAIN AND EXTRA-AXIAL SPACES: Unremarkable. No intra- or extra-axial hemorrhage. No evidence of acute infarct. No intracranial mass or mass effect. There is preservation of the hays/white matter interface. Posterior fossa structures are unremarkable. Ventricles are appropriate for age. No hydrocephalus. Basal cisterns are patent. BONES/JOINTS: Unremarkable. No discrete lytic or blastic abnormalities. VASCULATURE: Similar moderate calcifications of cavernous carotid arteries and distal right vertebral artery at the level of the foramen magnum. SINUSES: Unremarkable as visualized. Clear. MASTOID AIR CELLS: Unremarkable. Clear. ORBITS: Visualized globes, extraocular muscles, optic nerves and retrobulbar fat appear unremarkable. CT/Brain/Head without Contrast IMPRESSION: No acute intracranial abnormality. Electronically Signed: Megan Colorado MD at 4:03 EDT ,
--- NOTE | 2022-01-01 03:25 | EDS_ITS ---
HPI History of Present Illness Chief Complaint: Neuro S/Sx Informant: patient Narrative Narrative: Patient presenting with multiple symptoms. She has chronic neuropathy in both of her feet and both of her hands, she states it is always been worse on the right side, and over the past couple weeks it has been worse throughout. She describes painful paresthesias, mostly distal extremities. All fingers and toes involved. She takes gabapentin for it, states the last time she took it was about a month ago because she ran out and has not had it refilled yet. For the past 24 hours or so she has seen floaters that look like black spots, 2 of them, and her right eye. No vision or visual field loss. Tonight when she sat up fast, she became vertiginous saying that she was spinning and nauseated. That occurred a couple different times. When she rested and remains still, she felt much better. She denies any recent URIs or injuries/falls, but she has had popping in both of her ears for the last few days. She denies any chest pain, shortness of breath, palpitations, GI symptoms other than the nausea this morning. No headaches. No focal weakness in her extremities. She does not know why she has neuropathy, but she said it by name as if she has a prior diagnosis. [facility] Medical History Anxiety and depression Atherosclerotic heart disease of [place] coronary artery without angina pectoris Calculus of left kidney COPD (chronic obstructive pulmonary disease) Depression Essential hypertension GERD (gastroesophageal reflux disease) History of non-ST elevation myocardial infarction (NSTEMI) (09/01/21) Hyperlipidemia Ischemic cardiomyopathy Kidney stones Myocardial infarct Obesity (BMI 30.0-34.9) Old anterior wall myocardial infarction Opiate dependence EVELYN (obstructive sleep apnea) Osteoporosis Personal history of transient ischemic attack (TIA), and cerebral infarction without residual deficits Smoker TIA (transient ischemic attack) Tobacco abuse Home Medications aspirin 81 mg PO DAILY 07/21/18 [History Last Taken 07/05/20] omeprazole 40 mg PO DAILY 12/24/18 [History Last Taken 07/05/20] lorazepam 1 mg PO BID PRN PRN 06/15/21 [History Last Taken Unknown] atorvastatin [Lipitor] 40 mg PO QHS #30 tab 09/02/21 [Rx Last Taken Unknown] carvedilol [Coreg] 3.125 mg PO BID #60 tab 09/02/21 [Rx Last Taken Unknown] gabapentin 300 mg PO TID #90 cap 01/01/22 [Rx Last Taken Unknown] lisinopril 10 mg PO TID 01/01/22 [History Last Taken Unknown] meclizine 25 mg PO Q8H PRN PRN #16 tab 01/01/22 [Rx Last Taken Unknown] ondansetron 4 mg PO Q8H PRN #10 tab 01/01/22 [Rx Last Taken Unknown] Allergy/AdvReac Type Severity Reaction Status Date / Time No Known Allergies Allergy Verified 11/25/21 20:01 Family History Mother Hypertension CAD (coronary artery disease) CVA (cerebral vascular accident) Myocardial infarction Grandmother Myocardial infarction Surgical History History of hysterectomy History of left heart catheterization (09/02/21) History of total hysterectomy Hx of appendectomy Social History Smoking Status: Current every day smoker tobacco type: cigarettes alcohol intake: never substance use type: does not use ROS ROS ED Constitutional Constitutional ED: Denies chills or fever(s) Eyes Eyes: Reports as per HPI and floaters; Denies blurry vision, change in vision, diplopia or eye pain ENT ENT ED: Reports as per HPI; Denies ear discharge, hearing loss, rhinorrhea, sore throat or tinnitus Cardiovascular Cardiovascular: Denies chest pain or palpitations Respiratory/Chest Respiratory/Chest: Denies cough or dyspnea Gastrointestinal Gastrointestinal: Reports nausea; Denies abdominal pain, diarrhea or vomiting Genitourinary Genitourinary ED: Denies dysuria or hematuria Musculoskeletal Musculoskeletal: Denies back pain or neck pain Integumentary Denies abscess or rash Neurologic Neurologic: Reports as per HPI, paresthesias and vertigo; Denies headache(s) or weakness Psychiatric Psychiatric: Denies anxiety or suicidal thoughts EXAM Physical Exam Const Vital Signs: 01/01/22 01:43 Temperature 97.3 F L Temperature Source Oral Pulse Rate 86 Respiratory Rate 22 H Blood Pressure 164/105 H Blood Pressure Mean 124 Pulse Ox 99 Oxygen Delivery Method Room Air Positive well nourished and well developed General Appearance ED: well developed and NAD HEENT Reports normocephalic, head/scalp atraumatic, EAC's normal, TM's normal bilaterally and moist mucous membranes normocephalic and atraumatic Eyes PERRL and EOMs intact bilaterally Neck full ROM and supple Resp normal respiratory effort and clear to auscultation bilaterally Cardio regular rate, regular rhythm and no murmurs GI non-tender and non-distended Auscultation: normoactive bowel sounds Palpation: soft Back/Spine no CVA tenderness General Back: other FROM Extremity normal to inspection General Extremety ED: Negative for edema, pulses abnormal or tenderness General Extremity: Negative for edema or pulses abnormal Neuro oriented x3, CN's II-XII intact bilaterally and no sensory deficits noted Neuro Narrative: Horizontal nystagmus without vertical or rotatory nystagmus. Abnormal jolt test consistent with peripheral vertigo. Positive [place] to the left especially. Sensorium / Orientation: awake and alert Motor Exam: strength 5/5 throughout Skin no rashes or lesions noted and no wounds MDM MDM MDM Narrative Medical decision making narrative: I think the patient is having peripheral vertigo, and her neuropathy is worse than usual because she ran out of her gabapentin. She has a history of TIA and has an elevated blood pressure tonight in addition to having the visual disturbance/floaters in her right eye so we did obtain a CT, shows nothing acute, and I do not think this is central in etiology. She was given meclizine and Zofran as well as a dose of gabapentin to start her on a new prescription, she states she is on 300 3 times daily. She feels better with regards to her vertiginous symptoms and her nausea. We will give her prescriptions for those as well outpatient follow-up advised I think she can be discharged safely. Lab Data Attestation: I reviewed the patient's lab results. Labs: Laboratory Results - last 24 hr 01/01/22 01/01/22 01/01/22 01:50 01:50 01:56 WBC 8.5 RBC 4.64 Hgb 14.7 Hct 44.1 MCV 95.0 MCH 31.7 MCHC 33.3 RDW Std Deviation 45.1 H RDW Coeff of Sariah 13.1 Plt Count 235 MPV 9.9 Immature Gran % (Auto) 0.500 Neut % (Auto) 46.3 L Lymph % (Auto) 32.0 [place] % (Auto) 8.3 Eos % (Auto) 11.8 H Baso % (Auto) 1.1 H Absolute Neuts (auto) 3.9 Absolute Lymphs (auto) 2.70 Nucleated RBC % 0 Sodium 139 Potassium 4.6 Chloride 106 Carbon Dioxide 30.0 Anion Gap 3 L BUN 20 H Creatinine 0.82 Estim Creat Clear Calc 64.03 Est GFR (MDRD) Af Amer 89 Est GFR (MDRD) Non-Af 74 BUN/Creatinine Ratio 24.3 H Glucose 84 Calcium 8.8 POC Glucose 111 H Radiography Diagnostic Testing: Clinical Impression(s) from Imaging Studies Brain CT 01/01/22 03:23 IMPRESSION: No acute intracranial abnormality. Electronically Signed: Megan Colorado MD at 4:03 EDT Reading Location ID and State: [address] [place] [address] Tel , Service support , Rhythm Strip Rhythm Strip: Sinus Rhythm Rate: 85 Ectopy: PVC(s) EKG Initial EKG: Attestation: I personally reviewed and interpreted this EKG as follows: Interpretation: Sinus Rhythm, No Acute Injury Pattern, S-T Elevation (V1- V2 without reciprocal ST depression) and Non-Specific ST Changes (Septal lateral T wave flattening/inversions) Prior EKG tracings: available for review Prior: Unchanged Discharge Plan Triage Chief Complaint: Neuro S/Sx ED Provider: Linus Byers Dx/Rx/DC Orders Clinical Impression: Peripheral vertigo, Peripheral neuropathy, Vitreous floaters of right eye Instructions: Treating Flashes and Floaters, ED Neuropathy, Peripheral, ED Vertigo, Unspecified Prescriptions: New meclizine [meclizine] 25 MG tablet 25 mg PO Q8H PRN PRN (Reason: Dizziness) Qty: 16 RF: 0 Continued aspirin 81 MG tablet 81 mg PO DAILY RF: 0 omeprazole 20 MG capsule 40 mg PO DAILY RF: 0 lorazepam 1 mg tablet 1 mg PO BID PRN PRN (Reason: Anxiety) RF: 0 carvedilol [Coreg] 3.125 mg tablet 3.125 mg PO BID Qty: 60 RF: 0 atorvastatin [Lipitor] 40 mg tablet 40 mg PO QHS Qty: 30 RF: 0 lisinopril 10 mg tablet 10 mg PO TID RF: 0 gabapentin 300 MG capsule 300 mg PO TID Qty: 90 RF: 0 Changed ondansetron 4 mg tablet,disintegrating 4 mg PO Q8H PRN (Reason: nausea and vomiting) Qty: 10 RF: 0 Discontinued dexamethasone 6 MG tablet 6 mg PO DAILY Qty: 6 RF: 0 Primary Care Provider: Care Physician,No Primary Referrals: Yoandy Hernández MD [STAFF PHYSICIAN] - 3-5 Days if not improving ((for eye floaters/spots)) Doctor,Your [STAFF PHYSICIAN] - 1 Week if not improving
[2022-01-01 03:34] LABS: Absolute Neutrophil Count 3.9 X10^3/uL (2.0-7.7); Basophil# 0.09 X10^3/uL; Basophil% 1.1 % (0-1); Eosinophils% 11.8 % (0-5); Hematocrit 44.1 % (37-47); Hemoglobin 14.7 g/dL (12.0-15.0); Mean Corp Hgb Conc 33.3 g/dL (32-36); Mean Corpuscular Hgb 31.7 pg (27.0-32.0); Mean Platelet Vol. 9.9 fl (6.2-12.0); Monocyte% 8.3 % (0-10); NRBC Flagged by Analyzer 0 % (0-5); Neutrophil # 3.92 X10^3/uL (2.7-7.7); Neutrophil % 46.3 % (47-70); Platelet Count 235 K/mm3 (150-450); RBC Distribution Width CV 13.1 % (11.6-14.6); RBC Distribution Width SD 45.1 fl (35.1-43.9); Red Blood Count 4.64 M/mm3 (4.2-5.4); White Blood Count 8.5 K/mm3 (4.4-11.0)
[2022-01-01] MEDS: Gabapentin 300 MG Capsule PO (03:49)
[2022-01-01] MEDS: Ondansetron ODT 4 MG Tablet 8 MG PO (03:50)
[2022-01-01] MEDS: Meclizine HCl 25 MG Tablet PO (03:50)
[2022-01-01 03:53] LABS: Anion Gap 3 (5-15); BUN 20 mg/dL (7-18); BUN/Creat Ratio 24.3 RATIO (10-20); Calcium,Total 8.8 mg/dL (8.5-10.1); Chloride 106 mmol/L (98-107); Creatinine, Serum 0.82 mg/dL (0.55-1.02); EST Glomerular Filtration Rate 74 mL/min (>60); Est Glom Filt Rate - Afr Amer 89 mL/min (>60); Estimated Creatinine Clearance 64.03 ml/min; Glucose 84 mg/dL (74-106); Potassium 4.6 mmol/L (3.5-5.1); Sodium Level 139 mmol/L (136-145)
[2022-01-01 04:12] VITALS: BP 157/102
[2022-01-01 04:13] VITALS: BP 158/110
--- NOTE | 2022-01-03 16:34 | CASEMGMT ---
WENDY CANCINO ED Visit f/u call: ED visit: Complaint: neuro s/sx Call to pt. She states the vertigo has resolved. 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 She then proceeds to tell WENDY CANCINO that she is out of all of her other medications, including BP and cardiac medications, and states she has been out of some of them for over a year. She has seen Dr Best in the past, but has not been to see him for awhile--she is not sure how long it has been. She states she had lost her apartment and was homeless for awhile and was going from place to place. She states she has now found a room to rent on [facility]. She does not currently have a PCP and she also has transportation issues, as she does not have a vehicle. Reviewed list of many different local PCP's and pt also made aware of [facility] Van transportation/free services to [facility] or [place] offices, including Dr Best/[facility]. Pt provided w/[facility] van contact info and gave her phone #'s to several of the physician's she would consider going to. Also provided her w/[facility] free clinic info. WENDY CANCINO offered to schedule an appt for her, but she declines, stating she will call and schedule it. She denies having any further questions, concerns, or needs. She thanked WENDY CANCINO for calling and for the information provided. Nabor CARDENAS RN, CM
== END 2022-01-01 04:14 | disposition home or self-care (01) ==
PROVIDERS: Emergency Provider Emergency Medicine; Visit Provider Emergency Medicine
DX: G62.9 Polyneuropathy, unspecified (principal); J44.9 Chronic obstructive pulmonary disease, unspecified; H81.399 Other peripheral vertigo, unspecified ear; H43.391 Other vitreous opacities, right eye; E78.5 Hyperlipidemia, unspecified; I25.5 Ischemic cardiomyopathy; I10 Essential (primary) hypertension; I25.10 Atherosclerotic heart disease of native coronary artery without angina pectoris; I25.2 Old myocardial infarction; K21.9 Gastro-esophageal reflux disease without esophagitis; E66.9 Obesity, unspecified; F17.210 Nicotine dependence, cigarettes, uncomplicated; Z68.29 Body mass index [BMI] 29.0-29.9, adult; Z79.82 Long term (current) use of aspirin; Z79.899 Other long term (current) drug therapy; Z86.73 Personal history of transient ischemic attack (TIA), and cerebral infarction without residual deficits
CPT/HCPCS: 70450; 80048; 82962; 85025; 93005; 99282; A4216

== ENCOUNTER 2022-01-17 00:37 | Inpatient (IN) | payer MEDICARE, MEDICAID, SELFPAY ==
[2022-01-17] VITALS (40 sets, daily range): BP systolic 86–165; BP diastolic 61–117; PULSE 70–170; RESP 12–26; TEMP 36.4–37.1; O2SAT 90–100; BMI 32.3; BMI 31.7
--- NOTE | 2022-01-17 00:55 | EKG12_ITS ---
Test Reason : DYSRHYTHMIA Blood Pressure : / mmHG Vent. Rate : 164 BPM Atrial Rate : 164 BPM P-R Int : 148 ms QRS Dur : 096 ms QT Int : 250 ms P-R-T Axes : 017 045 201 degrees QTc Int : 412 ms Supraventricular tachycardia Nonspecific ST and T wave abnormality Abnormal ECG Confirmed by CECI MARTINEZ, GEO ([id number]), map editor MICAH SALMERON ([id number]) on 01/17/2022 11:47:17 AM Referred By: HERLINDA Confirmed By:GEO ORNELAS MD
[2022-01-17] MEDS: 0.9% Normal Saline 1,000 ML 999 ML IV (00:59)
[2022-01-17] MEDS: Adenosine 6 MG/2 ML Syringe 12 MG IV ×2 (01:01→01:06)
[2022-01-17 01:04] LABS: Absolute Lymphocyte Count 2.58 X10^3/uL (0.83-4.51); Absolute Neutrophil Count 6.6 X10^3/uL (2.0-7.7); Basophil# 0.04 X10^3/uL; Basophil% 0.4 % (0-1); Eosinophil# 0.09 X10^3/uL; Eosinophils% 0.9 % (0-5); Hematocrit 37.2 % (37-47); Lymphocyte # 2.58 X10^3/ul (0.83-4.51); Mean Corp Hgb Conc 32.3 g/dL (32-36); Mean Corpuscular Hgb 31.3 pg (27.0-32.0); Mean Corpuscular Volume 97.1 fL (81-99); Mean Platelet Vol. 9.1 fl (6.2-12.0); Monocyte# 1.01 X10^3/uL; Monocyte% 9.8 % (0-10); NRBC Flagged by Analyzer 0 % (0-5); Neutrophil # 6.57 X10^3/uL (2.7-7.7); Neutrophil % 63.4 % (47-70); Platelet Count 290 K/mm3 (150-450); RBC Distribution Width CV 13.3 % (11.6-14.6); Red Blood Count 3.83 M/mm3 (4.2-5.4); White Blood Count 10.3 K/mm3 (4.4-11.0)
[2022-01-17] MEDS: Propofol 200 MG/20 ML Vial IV BOLUS (01:20)
[2022-01-17 01:23] LABS: Anion Gap 5 (5-15); BUN 27 mg/dL (7-18); BUN/Creat Ratio 29.5 RATIO (10-20); Calcium,Total 9.9 mg/dL (8.5-10.1); Chloride 111 mmol/L (98-107); Creatinine, Serum 0.91 mg/dL (0.55-1.02); EST Glomerular Filtration Rate 66 mL/min (>60); Est Glom Filt Rate - Afr Amer 79 mL/min (>60); Estimated Creatinine Clearance 55.46 ml/min; Glucose 143 mg/dL (74-106); Magnesium 2.1 mg/dL (1.6-2.6); Potassium 3.3 mmol/L (3.5-5.1); Sodium Level 144 mmol/L (136-145); Troponin-I HS 38 pg/mL (3.0-54.0)
--- NOTE | 2022-01-17 01:40 | ED.RN ---
respiratory hooking pt up to do ekg. pt converted back into svt hr 173. dr maria updated.
--- NOTE | 2022-01-17 01:42 | RAD_ITS ---
STUDY: X-RAY CHEST REASON FOR EXAM: Female, 66 years old. dyspnea TECHNIQUE: AP portable upright COMPARISON: 11/17/2021 FINDINGS: The lungs are mildly increased in density at the right lung base. There is no demonstrated pleural abnormality. Normal size heart. Normal mediastinum and dru. Normal visualized pulmonary arteries. Normal visualized aortic arch and descending thoracic aorta. Normal visualized thoracic spine. Normal visualized ribs, clavicles, and shoulders. There is no demonstrated abnormality of the visualized soft tissue structures of the upper abdomen. RAD/Chest 1 View (Portable) IMPRESSION: There is mild infiltrate at the right lung base not seen previously. Electronically Signed: Sanju Pierre MD at 2:46 EDT ,
--- NOTE | 2022-01-17 01:57 | EDS_ITS ---
HPI History of Present Illness Chief Complaint: Chest Pain Narrative Narrative: Patient is a 66-year-old female who states that she has been coughing for approximately 2-weeks. She states each time she coughs she feels like her chest is being ripped. She states this evening she was lying in bed trying to go to sleep when she started to feel like her heart was racing. She states that she does have a history of high blood pressure high cholesterol and SD but denies any cardiac dysrhythmia or anticoagulation use. She also denies any illicit drug use or excessive stimulant use. She states that with her persistent cough and now palpitations she called EMS to bring her in for leta luation. [facility] Medical History Anxiety and depression Atherosclerotic heart disease of [place] coronary artery without angina pectoris Calculus of left kidney COPD (chronic obstructive pulmonary disease) Depression Essential hypertension GERD (gastroesophageal reflux disease) History of non-ST elevation myocardial infarction (NSTEMI) (09/01/21) Hyperlipidemia Ischemic cardiomyopathy Kidney stones Myocardial infarct Obesity (BMI 30.0-34.9) Old anterior wall myocardial infarction Opiate dependence EVELYN (obstructive sleep apnea) Osteoporosis Personal history of transient ischemic attack (TIA), and cerebral infarction without residual deficits Smoker TIA (transient ischemic attack) Tobacco abuse Home Medications aspirin 81 mg PO DAILY 07/21/18 [History Last Taken 07/05/20] omeprazole 40 mg PO DAILY 12/24/18 [History Last Taken 07/05/20] lorazepam 1 mg PO BID PRN PRN 06/15/21 [History Last Taken Unknown] atorvastatin [Lipitor] 40 mg PO QHS #30 tab 09/02/21 [Rx Last Taken Unknown] carvedilol [Coreg] 3.125 mg PO BID #60 tab 09/02/21 [Rx Last Taken Unknown] gabapentin 300 mg PO TID #90 cap 01/01/22 [Rx Last Taken Unknown] lisinopril 10 mg PO TID 01/01/22 [History Last Taken Unknown] meclizine 25 mg PO Q8H PRN PRN #16 tab 01/01/22 [Rx Last Taken Unknown] ondansetron 4 mg PO Q8H PRN #10 tab 01/01/22 [Rx Last Taken Unknown] doxycycline monohydrate 100 mg PO BID 01/17/22 [History Last Taken Unknown] venlafaxine 150 mg PO DAILY 01/17/22 [History Last Taken Unknown] Allergy/AdvReac Type Severity Reaction Status Date / Time No Known Allergies Allergy Verified 11/25/21 20:01 Family History Mother Hypertension CAD (coronary artery disease) CVA (cerebral vascular accident) Myocardial infarction Grandmother Myocardial infarction Surgical History History of hysterectomy History of left heart catheterization (09/02/21) History of total hysterectomy Hx of appendectomy Social History Smoking Status: Current every day smoker tobacco type: cigarettes alcohol intake: never substance use type: does not use ROS ROS ED Constitutional Constitutional ED: Denies chills or fever(s) ENT ENT ED: Denies sore throat Cardiovascular Cardiovascular: Reports chest pain, palpitations and racing heartbeat Respiratory/Chest Respiratory/Chest: Reports cough; Denies dyspnea Gastrointestinal Gastrointestinal: Denies abdominal pain, diarrhea, nausea or vomiting Genitourinary Genitourinary ED: Denies dysuria Musculoskeletal Musculoskeletal: Denies myalgias Integumentary Denies rash Neurologic Neurologic: Denies headache(s) Hematologic/Lymphatic Hematologic/Lymphatic: Denies easy bleeding or easy bruising EXAM Physical Exam Const Vital Signs: 01/17/22 00:39 01/17/22 01:16 01/17/22 01:20 Temperature 98 F Temperature Source Temporal Pulse Rate 165 H 170 H Pulse Rate [1 (Initial Baseline)] 170 H Pulse Rate [3] 168 H Respiratory Rate 21 H 26 H Blood Pressure 165/117 H 145/106 H Blood Pressure [1 (Initial Baseline)] 145/106 H Blood Pressure Mean 133 Pulse Ox 98 100 Oxygen Delivery Method Room Air Nasal Cannula Oxygen Delivery Method [1 (Initial Baseline)] Nasal Cannula Oxygen Delivery Method [3] Nasal Cannula Oxygen Flow Rate (L/min) 2 Oxygen Flow Rate (L/min) [1 (Initial Baseline)] 2 Oxygen Flow Rate (L/min) [3] 2 01/17/22 01:30 01/17/22 01:35 01/17/22 01:38 Temperature Temperature Source Pulse Rate 169 H Pulse Rate [1 (Initial Baseline)] Pulse Rate [3] Respiratory Rate 22 H Blood Pressure Blood Pressure [1 (Initial Baseline)] Blood Pressure Mean Pulse Ox 97 Oxygen Delivery Method Room Air Room Air Room Air Oxygen Delivery Method [1 (Initial Baseline)] Oxygen Delivery Method [3] Oxygen Flow Rate (L/min) Oxygen Flow Rate (L/min) [1 (Initial Baseline)] Oxygen Flow Rate (L/min) [3] Positive well nourished and well developed General Appearance ED: well developed HEENT Reports moist mucous membranes Eyes PERRL and EOMs intact bilaterally Neck supple and no JVD Chest Wall palpation of chest normal Resp normal respiratory effort and clear to auscultation bilaterally Cardio Rate: other Other Details: Tachycardic rate with regular rhythm. Radial pulses are plus 2 out of 4 bilaterally are equal and symmetric GI normal to inspection, nondistended, normoactive bowel sounds, non-tender, non- distended and no masses GI Narrative: No voluntary guarding or rigidity no pulsatile mass Auscultation: normoactive bowel sounds Palpation: soft Extremity normal to inspection Extremity Narrative: No asymmetric edema no pitting edema negative Homans' sign bilaterally Neuro oriented x3 and CN's II-XII intact bilaterally Sensorium / Orientation: alert Motor Exam: strength 5/5 throughout Psych mental status grossly normal Skin no rashes or lesions noted MDM MDM MDM Narrative Medical decision making narrative: Patient presented to the ER tachycardic and an EKG showed changes consistent with supraventricular tachycardia. This correlates with the EMS report that they gave her 6 mg of adenosine prior to arrival and she converted to sinus rhythm. However at this time with the new onset cardiac dysrhythmia that has been recurrent in nature elected to perform basic laboratory studies and with her persistent cough a chest x-ray. Patient was given 12 mg of adenosine and did convert once again to sinus rhythm but then quickly reverted back to SVT. Following this she was given a second dose of 12 mg with minimal symptom improvement. Patient then underwent synchronized cardioversion as documented below. This did lead to normal sinus rhythm but after approximately 5 minutes the patient then converted back to SVT. With the patient converting back to SVT after synchronized cardioversion I did discuss the case with cardiology on-call. At this time because she has been converting and then relapsing back to SVT they recommend she just be started on a Cardizem drip and admitted to the hospital versus undergoing further cardioversion. Therefore medicine was contacted and they do agree to admit the patient at this time. Patient underwent conscious sedation with synchronized cardioversion. Patient was given a total of 50 mg of propofol. Following this the patient underwent synchronized cardioversion at 100 J. After 1 attempt the patient converted to sinus rhythm. The patient tolerated the procedure well without complication. Total time frame of conscious sedation was approximately 10 minutes. Lab Data Attestation: I reviewed the patient's lab results. Labs: Laboratory Results - last 24 hr 01/17/22 01/17/22 01/17/22 00:56 00:56 00:56 WBC 10.3 RBC 3.83 L Hgb 12.0 Hct 37.2 MCV 97.1 MCH 31.3 MCHC 32.3 RDW Std Deviation 47.0 H RDW Coeff of Sariah 13.3 Plt Count 290 MPV 9.1 Immature Gran % (Auto) 0.500 Neut % (Auto) 63.4 Lymph % (Auto) 25.0 [place] % (Auto) 9.8 Eos % (Auto) 0.9 Baso % (Auto) 0.4 Absolute Neuts (auto) 6.6 Absolute Lymphs (auto) 2.58 Nucleated RBC % 0 Sodium 144 Potassium 3.3 L Chloride 111 H Carbon Dioxide 28.0 Anion Gap 5 BUN 27 H Creatinine 0.91 Estim Creat Clear Calc 55.46 Est GFR (MDRD) Af Amer 79 Est GFR (MDRD) Non-Af 66 BUN/Creatinine Ratio 29.5 H Glucose 143 H Calcium 9.9 Magnesium 2.1 Troponin I High Sens 38 TSH 1.21 Radiography Diagnostic Testing: Clinical Impression(s) from Imaging Studies Chest X-Ray 01/17/22 01:42 IMPRESSION: There is mild infiltrate at the right lung base not seen previously. Electronically Signed: Sanju Pierre MD at 2:46 EDT , Chest x-ray as interpreted by the emergency medicine physician reveals atelectasis versus infiltrate in the right lung base Critical Care Time Critical Care Time: Yes Critical care time (excluding procedures): - (33 minutes) Discharge Plan Dx/Rx/DC Orders Clinical Impression: Sustained SVT, Essential hypertension Disposition Disposition: Acute Care Hospital [facility] Discharge Date/Time: 01/17/22 02:40
--- NOTE | 2022-01-17 02:04 | HP.PCM.HOS_ITS ---
[facility] - General General Date of Admission: 01/17/22 HPI Narrative ECHO KERNS, is a 66 F with a significant history of non-STEMI; and COPD and obstructive sleep apnea who presents to the emergency department with persistent palpitation that started about an hour before presentation to the emergency department.. Paramedics found the patient was in SVT. She was given 6 mg adenosine by paramedics. She converted into sinus. However she coughed and went back into SVT. At the emergency department patient received 12 mg of adenosine x2. She was shocked into sinus rhythm. However she converted back into SVT. Emergency Department doctor discussed the case with customer complaint service supervisor who recommended the patient's stays at the hospital and be put on Cardizem drip. Reportedly patient has been having chest Congestion and cough for about 2weeks. Her cough is occasionally productive with yellow sputum. She reports chest pain and bilateral arm pain; as well as pain at the back of the neck. She has left lower quadrant abdominal pain with coughing. She reports episodes of urinating with coughing. [facility] Medical History Anxiety and depression Atherosclerotic heart disease of [place] coronary artery without angina pectoris Calculus of left kidney COPD (chronic obstructive pulmonary disease) Depression Essential hypertension GERD (gastroesophageal reflux disease) History of non-ST elevation myocardial infarction (NSTEMI) (09/01/21) Hyperlipidemia Ischemic cardiomyopathy Kidney stones Myocardial infarct Obesity (BMI 30.0-34.9) Old anterior wall myocardial infarction Opiate dependence EVELYN (obstructive sleep apnea) Osteoporosis Personal history of transient ischemic attack (TIA), and cerebral infarction without residual deficits Smoker TIA (transient ischemic attack) Tobacco abuse Home Medications aspirin 81 mg PO DAILY 07/21/18 [History Last Taken 07/05/20] omeprazole 40 mg PO DAILY 12/24/18 [History Last Taken 07/05/20] lorazepam 1 mg PO BID PRN PRN 06/15/21 [History Last Taken Unknown] atorvastatin [Lipitor] 40 mg PO QHS #30 tab 09/02/21 [Rx Last Taken Unknown] carvedilol [Coreg] 3.125 mg PO BID #60 tab 09/02/21 [Rx Last Taken Unknown] gabapentin 300 mg PO TID #90 cap 01/01/22 [Rx Last Taken Unknown] lisinopril 10 mg PO TID 01/01/22 [History Last Taken Unknown] meclizine 25 mg PO Q8H PRN PRN #16 tab 01/01/22 [Rx Last Taken Unknown] ondansetron 4 mg PO Q8H PRN #10 tab 01/01/22 [Rx Last Taken Unknown] doxycycline monohydrate 100 mg PO BID 01/17/22 [History Last Taken Unknown] venlafaxine 150 mg PO DAILY 01/17/22 [History Last Taken Unknown] Allergy/AdvReac Type Severity Reaction Status Date / Time No Known Allergies Allergy Verified 11/25/21 20:01 Family History Mother Hypertension CAD (coronary artery disease) CVA (cerebral vascular accident) Myocardial infarction Grandmother Myocardial infarction Surgical History History of hysterectomy History of left heart catheterization (09/02/21) History of total hysterectomy Hx of appendectomy Social History Smoking Status: Current every day smoker tobacco type: cigarettes alcohol intake: never substance use type: does not use ROS ROS Narrative Pertinent positives and pertinent negatives as noted in HPI. All other systems were reviewed and are negative. Vital Signs Vital Signs Vital Signs: 01/17/22 00:39 01/17/22 01:16 01/17/22 01:20 Temperature 98 F Temperature Source Temporal Pulse Rate 165 H 170 H Pulse Rate [1 (Initial Baseline)] 170 H Pulse Rate [3] 168 H Respiratory Rate 21 H 26 H Blood Pressure 165/117 H 145/106 H Blood Pressure [1 (Initial Baseline)] 145/106 H Blood Pressure Mean 133 Pulse Ox 98 100 Oxygen Delivery Method Room Air Nasal Cannula Oxygen Delivery Method [1 (Initial Baseline)] Nasal Cannula Oxygen Delivery Method [3] Nasal Cannula Oxygen Flow Rate (L/min) 2 Oxygen Flow Rate (L/min) [1 (Initial Baseline)] 2 Oxygen Flow Rate (L/min) [3] 2 01/17/22 01:30 01/17/22 01:35 Temperature Temperature Source Pulse Rate Pulse Rate [1 (Initial Baseline)] Pulse Rate [3] Respiratory Rate Blood Pressure Blood Pressure [1 (Initial Baseline)] Blood Pressure Mean Pulse Ox Oxygen Delivery Method Room Air Room Air Oxygen Delivery Method [1 (Initial Baseline)] Oxygen Delivery Method [3] Oxygen Flow Rate (L/min) Oxygen Flow Rate (L/min) [1 (Initial Baseline)] Oxygen Flow Rate (L/min) [3] Weight Weight: 88.1 kg Body Mass Index (BMI) 32.3 Physical Exam Narrative Physical exam: General: Well-nourished, well-developed. Head: Normocephalic, atraumatic, no tenderness Eyes: Vision is grossly intact. EOMI ENT, no trauma, moist mucous membranes, no rhinorrhea Neck: Nontender, full range of motion, no spinal tenderness, deformities, step- off CVS: Tachycardia. S1-S2 present. No murmur, gallop or rub. Respiratory : clear to auscultation bilaterally, chest wall nontender, no wheezing Abdomen: Soft,tender, nondistended, normal bowel sounds, no masses : Deferred Back: Nontender, no CVA tenderness, no midline spinal tenderness, deformities, step-offs Extremities: Nontender full range of motion, no trauma Skin: Normal color, no trauma, abrasions Neuro: Alert, oriented, cranial nerves II through XII grossly intact. Psychiatry: Normal mood. Normal affect. Not depressed. Not anxious. Results Lab / Micro Data Result Diagrams: 01/17/22 00:56 01/17/22 00:56 Labs: Laboratory Results - last 24 hr 01/17/22 00:56: WBC 10.3, RBC 3.83 L, Hgb 12.0, Hct 37.2, MCV 97.1, MCH 31.3, MCHC 32.3, RDW Std Deviation 47.0 H, RDW Coeff of Sariah 13.3, Plt Count 290, MPV 9.1, Immature Gran % (Auto) 0.500, Neut % (Auto) 63.4, Lymph % (Auto) 25.0, [place] % (Auto) 9.8, Eos % (Auto) 0.9, Baso % (Auto) 0.4, Absolute Neuts (auto) 6.6, Absolute Lymphs (auto) 2.58, Nucleated RBC % 0 01/17/22 00:56: Sodium 144, Potassium 3.3 L, Chloride 111 H, Carbon Dioxide 28.0, Anion Gap 5, BUN 27 H, Creatinine 0.91, Estim Creat Clear Calc 55.46, Est GFR (MDRD) Af Amer 79, Est GFR (MDRD) Non-Af 66, BUN/Creatinine Ratio 29.5 H, Glucose 143 H, Calcium 9.9, Magnesium 2.1, Troponin I High Sens 38 Assessment & Plan Assessment/Plan (1) Sustained SVT: PLAN: Sustained SVT Cardizem drip started emergency department and continued. BMP reviewed showed potassium of 3.3. Replaced with p.o. and IV potassium. Magnesium is normal. Received therapeutic dose of Lovenox at emergency department Initial high sensitive troponin is normal. Trend troponins. Cardiology consult. Pneumonia Gram-positive or gram-negative Chest x-ray was visualized independently interpreted and compared with previous chest x-ray. I agree with radiologist interpretation of mild infiltrate at the right lung base not seen previously. Of note patient has no fever. White count is upper limits of normal. With patient having a cough for 2 weeks and with her general condition will stop home doxycycline. Levaquin ordered. QTC is not prolonged Will start patient on guaifenesin with codeine DVT prophylaxis Subcutaneous Lovenox ordered. Charges/Coding Visit Charges OBSV E&M: 11219 Initial observation care L3
[2022-01-17] MEDS: Enoxaparin 100 MG/ML Syringe 90 MG SC (02:08)
[2022-01-17] MEDS: Ondansetron 4 MG/2 ML Vial IV ×2 (02:12→06:43)
[2022-01-17] MEDS: Morphine 2 MG/ML Syringe IV ×2 (02:12→03:43)
[2022-01-17 02:40] LABS: Thyroid Stim Hormone (TSH) 1.21 uIU/mL (0.358-3.74)
[2022-01-17] MEDS: dilTIAZem 25 MG/5 ML Vial 5 MG IV BOLUS (03:30)
[2022-01-17] MEDS: Potassium Chloride 10mEq/100mL 10 MEQ/100 ML IV.SOLN. 100 MEQ IV BOLUS ×3 (03:36→05:36)
[2022-01-17] MEDS: levoFLOXacin IV 750 MG/150 ML BAG 100 MG IV ×2 (03:38→22:44)
[2022-01-17] MEDS: Benzonatate 100 MG Capsule PO (03:43)
[2022-01-17] MEDS: Potassium Chloride Oral Tablet 10 MEQ 30 MEQ PO (03:43)
--- NOTE | 2022-01-17 04:40 | ECHOCS_ITS ---
Reason For Study: Arrhythmia Procedure This was a 2D Doppler, Color Flow transthoracic echocardiogram. The study was technically difficult. Contrast injection was performed. Exam performed portable in ICU/CCU. Left Ventricle Moderately dilated left ventricle. Severe segmental systolic dysfunction (see wall motion). The estimated ejection fraction is 20 %. Anterio-Basal: Hypokinetic. Posterior-Basal: Hypokinetic. Infero-Basal: Hypokinetic. Basal inferoseptal: Akinetic. Basal anteroseptal: Hypokinetic. Mid- Anterior : Severely Hypokinetic. Mid-Lateral : Severely Hypokinetic. Mid-Posterior: Severely Hypokinetic. Mid-Inferior: Severely Hypokinetic. Mid-inferoseptal : Hypokinetic. Mid-anteroseptal : Hypokinetic. Anterior [place] : Akinetic. Inferior [place] : Akinetic. Lateral [place] : Dyskinetic. Septal [place] : Akinetic. Right Ventricle Right ventricular apex appears dyskinetic. Moderate segmental dysfunction of right ventricle. Atria The left atrium is moderately enlarged. Normal right atrium. No doppler evidence for ASD. Mitral Valve There is no mitral annular calcification. Mild focal mitral valve calcification of the posterior leaflet. Moderately severe (3+) eccentric mitral valve insufficiency. Tricuspid Valve Normal tricuspid valve. Mild tricuspid valve insufficiency. Right ventricular systolic pressure estimated to be 36 mmHg. Aortic Valve Trisinus/trileaflet aortic valve. Mild focal aortic valve calcification. Pulmonic Valve The pulmonic valve is not well visualized. Great Vessels Normal sized aortic root. Pericardium/Pleural Trivial pericardial effusion. There are no echocardiographic indications of cardiac tamponade. Medication Diluted definity 4ml given slow IV push to enhance endocardial definition. MMode/2D Measurements & Calculations LVIDd: 5.9 cm IVSd: 1.5 cm Ao root diam: 3.0 cm LVIDs: 5.7 cm LVPWd: 1.2 cm RVDd: 3.6 cm FS: 2.8 % LAV(MOD-bp): 91.7 ml LVAd ap4: 48.5 cm2 LVAd ap2: 44.9 cm2 LAV(MOD-bp) Indexed: 47.4 ml/m2 LVLd ap4: 9.1 cm LVLd ap2: 8.6 cm LAV(MOD-sp2): 73.4 ml EDV(MOD-sp4): 211.7 ml EDV(MOD-sp2): 189.7 ml LAV(MOD-sp4): 91.3 ml EDV(sp4-el): 220.7 ml EDV(sp2-el): 197.5 ml LVAs ap4: 42.6 cm2 LVAs ap2: 40.0 cm2 LVLs ap4: 8.8 cm LVLs ap2: 8.6 cm ESV(MOD-sp4): 165.7 ml ESV(MOD-sp2): 151.2 ml ESV(sp4-el): 175.9 ml ESV(sp2-el): 157.6 ml EF(MOD-sp4): 21.7 % EF(MOD-sp2): 20.3 % EF(sp4-el): 20.3 % SV(MOD-sp4): 45.9 ml SV(MOD-sp2): 38.5 ml SV(sp4-el): 44.8 ml LA A4 area: 27.3 cm2 LA dimension(2D): 4.4 cm RA A4 area: 13.3 cm2 Doppler Measurements & Calculations MV E max bryson: 82.1 cm/sec Lat Peak E' Bryson: 4.8 cm/sec Med Peak E' Bryson: 4.4 cm/sec MV A max bryson: 37.7 cm/sec E/E' lat: 16.9 E/E' med: 18.7 MV E/A: 2.2 Ao V2 max: 123.5 cm/sec LV V1 max: 85.7 cm/sec PA V2 max: 55.5 cm/sec Ao max P.1 mmHg LV V1 max P.9 mmHg TR max bryson: 228.1 cm/sec TR max P.8 mmHg ECHO/Echo Complete W/ Contrast Interpretation Summary The study was technically difficult. Contrast injection was performed. Moderately dilated left ventricle. Severe segmental systolic dysfunction (see wall motion). The estimated ejection fraction is 20 %. Right ventricular apex appears dyskinetic. Moderate segmental dysfunction of right ventricle. The left atrium is moderately enlarged. Mild focal mitral valve calcification of the posterior leaflet. Moderately severe (3+) eccentric mitral valve insufficiency. Mild tricuspid valve insufficiency. Mild focal aortic valve calcification. Trivial pericardial effusion. There are no echocardiographic indications of cardiac tamponade. Right ventricular systolic pressure estimated to be 36 mmHg. Transmitral diastolic flow velocities suggest diastolic dysfunction (pseudonorm al pattern). Ordering Physician: Ken Banda Performed By: Cathy Whitaker RDCS
[2022-01-17] MEDS: 0.9% Saline Lock 10 ML Syringe IV ×2 (05:49→07:09)
--- NOTE | 2022-01-17 05:49 | EKG12_ITS ---
Test Reason : RHYTHM CHANGE Blood Pressure : / mmHG Vent. Rate : 069 BPM Atrial Rate : 069 BPM P-R Int : 104 ms QRS Dur : 096 ms QT Int : 408 ms P-R-T Axes : 000 043 144 degrees QTc Int : 437 ms Sinus rhythm with short [place] Septal infarct , age undetermined Abnormal ECG When compared with ECG of 17-JAN-2022 00:43, MANUAL COMPARISON REQUIRED, DATA IS UNCONFIRMED Confirmed by CECI MARTINEZ, GEO ([id number]), news editor MICAH SALMERON ([id number]) on 01/17/2022 1:05:26 PM Referred By: HERLINDA Confirmed By:GEO ORNELAS MD
[2022-01-17 05:59] LABS: Troponin-I HS 121 pg/mL (3.0-54.0)
[2022-01-17 06:02] LABS: Anion Gap 4 (5-15); BUN 27 mg/dL (7-18); Calcium,Total 8.8 mg/dL (8.5-10.1); Chloride 110 mmol/L (98-107); Creatinine, Serum 0.75 mg/dL (0.55-1.02); EST Glomerular Filtration Rate 82 mL/min (>60); Est Glom Filt Rate - Afr Amer 100 mL/min (>60); Estimated Creatinine Clearance 67.29 ml/min; Glucose 113 mg/dL (74-106); Potassium 4.1 mmol/L (3.5-5.1); Sodium Level 142 mmol/L (136-145)
[2022-01-17 06:10] LABS: Thyroid Stim Hormone (TSH) 2.76 uIU/mL (0.358-3.74)
--- NOTE | 2022-01-17 06:17 | RAD_ITS ---
STUDY: X-RAY CHEST REASON FOR EXAM: Female, 66 years old. Chest pain TECHNIQUE: Single AP portable view of the chest. COMPARISON: January 17, 2022 chest x-ray FINDINGS: There is a prominent appearance of the right-sided paramediastinal soft tissues. There is no demonstrated pleural abnormality. There is moderate cardiac enlargement. Normal mediastinum and dru. Normal visualized pulmonary arteries. Normal visualized aortic arch and descending thoracic aorta. There are diffuse degenerative changes of the visualized thoracic spine. Normal visualized ribs, clavicles, and shoulders. There is no demonstrated abnormality of the visualized soft tissue structures of the upper abdomen. RAD/Chest 1 View (Portable) IMPRESSION: Prominence of the right-sided paramediastinal soft tissues which may represent aortic tortuosity and aneurysmal dilatation versus lymphadenopathy. Mild to moderate cardiac enlargement. Electronically Signed: Avelina Miller MD at 6:38 EDT ,
--- NOTE | 2022-01-17 06:35 | EKG12_ITS ---
Test Reason : CP Blood Pressure : / mmHG Vent. Rate : 066 BPM Atrial Rate : 070 BPM P-R Int : 000 ms QRS Dur : 096 ms QT Int : 440 ms P-R-T Axes : 000 033 082 degrees QTc Int : 461 ms Accelerated Junctional rhythm Nonspecific T wave abnormality Abnormal ECG Confirmed by GASPER MARTINEZ, PATRICK ([id number]), tape editor MICAH SALMERON ([id number]) on 01/20/2022 1:31:22 PM Referred By: KAYLA Confirmed By:PATRICK JACKMAN MD
[2022-01-17 07:12] LABS: Troponin-I HS 234 pg/mL (3.0-54.0)
[2022-01-17 07:44] LABS: Absolute Lymphocyte Count 3.92 X10^3/uL (0.83-4.51); Absolute Neutrophil Count 6.1 X10^3/uL (2.0-7.7); Basophil# 0.06 X10^3/uL; Basophil% 0.5 % (0-1); Eosinophil# 0.18 X10^3/uL; Eosinophils% 1.6 % (0-5); Hematocrit 36.5 % (37-47); Hemoglobin 11.4 g/dL (12.0-15.0); Lymphocyte # 3.92 X10^3/ul (0.83-4.51); Lymphocyte % 34.6 % (19-41); Mean Corp Hgb Conc 31.2 g/dL (32-36); Mean Corpuscular Hgb 30.9 pg (27.0-32.0); Mean Corpuscular Volume 98.9 fL (81-99); Mean Platelet Vol. 9.4 fl (6.2-12.0); Monocyte# 0.99 X10^3/uL; Monocyte% 8.7 % (0-10); NRBC Flagged by Analyzer 0 % (0-5); Neutrophil % 53.9 % (47-70); Platelet Count 353 K/mm3 (150-450); RBC Distribution Width CV 13.5 % (11.6-14.6); RBC Distribution Width SD 47.9 fl (35.1-43.9); Red Blood Count 3.69 M/mm3 (4.2-5.4); White Blood Count 11.3 K/mm3 (4.4-11.0)
[2022-01-17 07:48] LABS: D-Dimer Quantitative (DVT/PE) 1.34 FEU/ug/m (0.27-0.49)
--- NOTE | 2022-01-17 08:08 | NURSING ---
01/17/22 @ 0608- See TRAFFIC DIRECTOR documentation.
--- NOTE | 2022-01-17 08:27 | EX.PCM.CONCC ---
Assessment & Plan Assessment/Plan (1) Sustained SVT: (2) Old anterior wall myocardial infarction: (3) Ischemic cardiomyopathy: (4) Tobacco abuse: PLAN: RECOMMENDATIONS: 1. Defer to cardiology on rate control 2. Discontinue Levophed 3. Consider diuretic therapy 4. Await echocardiogram 5. Okay to continue antibiotics for now IMPRESSIONS: 1. SVT in the setting of a recent anterior MN with ischemic cardiomyopathy Patient with shortened VT interval. Unclear if patient may have a predisposition such as WPW leading to resistant change. Transient hypotension following conversion likely secondary to Cardizem drip. Levophed will be discontinued. Urgent echocardiogram is currently pending. Await for cardiology recommendations. 2. Transient hypoxia Clinical suspicion for an element of congestive heart failure leading to pulmonary edema. Patient would benefit from diuretics from a pulmonary perspective. Patient did have transient BiPAP rescue, but appears to have redistributed at this time. Patient does carry a diagnosis of COPD and tobacco abuse. Patient was encouraged to quit smoking. Outpatient complete PFT for quantification clarification of lung function would be appropriate. Unclear if patient truly has a pneumonia. Okay to continue with antibiotics for now. 3. Advanced age/hypertension/hyperlipidemia/active tobacco abuse/obesity Complicates care, management, recovery and prognosis. Hold antihypertensives for now given acute condition. Okay to continue with other baseline medications. Patient does not require doxycycline that she is currently receiving Levaquin. HPI Consult Data Date of Consult: 01/17/22 HPI Narrative HPI Narrative: ECHO KERNS is a 66 F, with past medical history listed below, who presents to [facility] on 01/17/2022 secondary to a 2-week history of coughing and a new onset of chest pain/abdominal pain. Patient reported that she was lying in bed trying to get to sleep and felt like her heart was racing. Patient is not on anticoagulation at baseline and does not typically have palpitations. Patient had denied any illicit drug use or coffee. Given her new palpitations, EMS was called and patient was brought in for evaluation. In the ER, patient was noted to have a heart rate of 170 bpm with a blood pressure of 165/117. Patient was initially doing well on room air, but was placed on 2 L nasal cannula for a brief period of time. Laboratory work-up was relatively unremarkable except for a potassium level of 3.3, creatinine of 0.91 and a glucose of 143. TSH was normal at 1.21. Chest x-ray showed an early possible infiltrate in the right lower lobe. EKG showed SVT. Patient was given 12 mg of adenosine with only brief cessation. Patient did undergo synchronized cardioversion that was successful for approximately 5 minutes. Given persistence, patient was placed on Cardizem and admitted to the floor for further evaluation. At approximately 6 AM, rapid response was called secondary to hypotension and an acute change in rhythm. After evaluation, patient was brought to the intensive care unit and cardiology requested a consult. Patient had complained of some nausea, shortness of breath and was found to be hypotensive. Cardiology discontinued Cardizem drip and initiated Levophed. Patient was noted to have rales on exam, so fluid bolus was not given immediately. Patient was placed on BiPAP temporarily. After approximately 35 minutes of therapy, patient began to stabilize. Levophed has been discontinued and patient has been taken off of supplemental oxygen. Patient is currently in normal sinus rhythm with a shortened VT interval. Patient is reporting improvement in nausea and shortness of breath, but still has rales on exam. Patient has had an urgent echo, but results are still pending. Patient is reporting point tenderness in the left anterior abdominal area. Patient states this is new since developing her cough. Review of systems otherwise negative from a constitutional, HEENT, respiratory, cardiovascular, GI, genitourinary, musculoskeletal, skin, neurologic, psychiatric and hematologic system unless stated above. [facility] Medical History Anxiety and depression Atherosclerotic heart disease of [place] coronary artery without angina pectoris Calculus of left kidney COPD (chronic obstructive pulmonary disease) Depression Essential hypertension GERD (gastroesophageal reflux disease) History of non-ST elevation myocardial infarction (NSTEMI) (09/01/21) Hyperlipidemia Ischemic cardiomyopathy Kidney stones Myocardial infarct Obesity (BMI 30.0-34.9) Old anterior wall myocardial infarction Opiate dependence EVELYN (obstructive sleep apnea) Osteoporosis Personal history of transient ischemic attack (TIA), and cerebral infarction without residual deficits Smoker TIA (transient ischemic attack) Tobacco abuse Home Medications aspirin 81 mg PO DAILY 07/21/18 [History Last Taken 07/05/20] omeprazole 40 mg PO DAILY 12/24/18 [History Last Taken 07/05/20] lorazepam 1 mg PO BID PRN PRN 06/15/21 [History Last Taken Unknown] atorvastatin [Lipitor] 40 mg PO QHS #30 tab 09/02/21 [Rx Last Taken Unknown] carvedilol [Coreg] 3.125 mg PO BID #60 tab 09/02/21 [Rx Last Taken Unknown] gabapentin 300 mg PO TID #90 cap 01/01/22 [Rx Last Taken Unknown] lisinopril 10 mg PO TID 01/01/22 [History Last Taken Unknown] meclizine 25 mg PO Q8H PRN PRN #16 tab 01/01/22 [Rx Last Taken Unknown] ondansetron 4 mg PO Q8H PRN #10 tab 01/01/22 [Rx Last Taken Unknown] doxycycline monohydrate 100 mg PO BID 01/17/22 [History Last Taken Unknown] venlafaxine 150 mg PO DAILY 01/17/22 [History Last Taken Unknown] Allergy/AdvReac Type Severity Reaction Status Date / Time No Known Allergies Allergy Verified 11/25/21 20:01 Family History Mother Hypertension CAD (coronary artery disease) CVA (cerebral vascular accident) Myocardial infarction Grandmother Myocardial infarction Surgical History History of hysterectomy History of left heart catheterization (09/02/21) History of total hysterectomy Hx of appendectomy Social History Smoking Status: Current every day smoker tobacco type: cigarettes alcohol intake: never substance use type: does not use ROS ROS Narrative See HPI Physical Exam Const alert, oriented x3 and no apparent distress General Appearance: appears older than stated age Nutritional Appearance: obese HEENT normocephalic, head/scalp atraumatic and hearing grossly normal bilaterally Eyes PERRL, EOMs intact bilaterally and conjunctivae normal Neck no lymphadenopathy, supple and no JVD Resp normal respiratory effort, no retractions, no use of accessory muscles and clear to auscultation bilaterally Cardio regular rate, regular rhythm, no murmurs and no JVD GI normal to inspection, nondistended, normoactive bowel sounds and soft to palpation Palpation: tender other (Point tenderness in the left romie-rectalsheath area at the level of the umbilicus. No hernia palpated) Extremity normal to inspection, full ROM and no clubbing, cyanosis or edema Skin no rashes or lesions noted, no wounds and skin turgor normal Neuro CN's II-XII intact bilaterally Psych affect normal Lab / Micro Data Result Diagrams: 01/17/22 07:19 01/17/22 05:28 Labs: Laboratory Results - last 24 hr 01/17/22 00:56: WBC 10.3, RBC 3.83 L, Hgb 12.0, Hct 37.2, MCV 97.1, MCH 31.3, MCHC 32.3, RDW Std Deviation 47.0 H, RDW Coeff of Sariah 13.3, Plt Count 290, MPV 9.1, Immature Gran % (Auto) 0.500, Neut % (Auto) 63.4, Lymph % (Auto) 25.0, Motley % (Auto) 9.8, Eos % (Auto) 0.9, Baso % (Auto) 0.4, Absolute Neuts (auto) 6.6, Absolute Lymphs (auto) 2.58, Nucleated RBC % 0 01/17/22 00:56: Sodium 144, Potassium 3.3 L, Chloride 111 H, Carbon Dioxide 28.0, Anion Gap 5, BUN 27 H, Creatinine 0.91, Estim Creat Clear Calc 55.46, Est GFR (MDRD) Af Amer 79, Est GFR (MDRD) Non-Af 66, BUN/Creatinine Ratio 29.5 H, Glucose 143 H, Calcium 9.9, Magnesium 2.1, Troponin I High Sens 38 01/17/22 00:56: TSH 1.21 01/17/22 05:28: Sodium 142, Potassium 4.1, Chloride 110 H, Carbon Dioxide 28.0, Anion Gap 4 L, BUN 27 H, Creatinine 0.75, Estim Creat Clear Calc 67.29, Est GFR (MDRD) Af Amer 100, Est GFR (MDRD) Non-Af 82, BUN/Creatinine Ratio 36.0 H, Glucose 113 H, Calcium 8.8 01/17/22 05:28: TSH 2.76 01/17/22 05:28: Troponin I High Sens 121 H* 01/17/22 06:45: Troponin I High Sens 234 H* 01/17/22 07:19: WBC 11.3 H, RBC 3.69 L, Hgb 11.4 L, Hct 36.5 L, MCV 98.9, MCH 30.9, MCHC 31.2 L, RDW Std Deviation 47.9 H, RDW Coeff of Sariah 13.5, Plt Count 353, MPV 9.4, Immature Gran % (Auto) 0.700, Neut % (Auto) 53.9, Lymph % (Auto) 34.6, Motley % (Auto) 8.7, Eos % (Auto) 1.6, Baso % (Auto) 0.5, Absolute Neuts (auto) 6.1, Absolute Lymphs (auto) 3.92, Nucleated RBC % 0 01/17/22 07:19: D-Dimer Quant (PE/DVT) 1.34 H* Radiology Impression Chest X-Ray 01/17/22 01:42 IMPRESSION: There is mild infiltrate at the right lung base not seen previously. Electronically Signed: Sanju Pierre MD at 2:46 EDT Reading Location ID and State: [facility] / [place] Tel , Service support , Chest X-Ray 01/17/22 06:17 IMPRESSION: Prominence of the right-sided paramediastinal soft tissues which may represent aortic tortuosity and aneurysmal dilatation versus lymphadenopathy. Mild to moderate cardiac enlargement. Electronically Signed: Avelina Miller MD at 6:38 EDT , Charges/Coding Visit Charges Inpatient E&M: 38294 Init Hosp L3
--- NOTE | 2022-01-17 08:54 | PCM.CONS.C ---
Documented by User: BACILIO Krishna 01/17/22 14:13 Assessment & Plan Assessment/Plan (1) Sustained SVT: (2) Atherosclerotic heart disease of [place] coronary artery without angina pectoris: QUALIFIERS: [place] vs. transplanted heart: unspecified whether [place] or transplanted heart Qualified Code(s): I25.10 - Atherosclerotic heart disease of [place] coronary artery without angina pectoris (3) History of non-ST elevation myocardial infarction (NSTEMI): (4) Ischemic cardiomyopathy: (5) Essential hypertension: (6) Hyperlipidemia: QUALIFIERS: Hyperlipidemia type: unspecified Qualified Code(s): E78.5 - Hyperlipidemia, unspecified PLAN: It appears patient's SVT has resolved with her IV Cardizem. Since patient's heart rate has been stable and she has not had any further recurrences of bradycardia will continue her beta-cora. With her hypotension would recommend close monitoring of her blood pressure. Her troponin was slightly elevated, this could be related to a demand ischemia however it is noted that her echocardiogram demonstrated a significant decrease in her ejection fraction. Her ejection fraction is now 20%. She does have severe segmental systolic dysfunction in addition to her right ventricle now appears dyskinetic. Question if this is related to a pulmonary embolus. Would like to have patient undergo a CTA to evaluate for this. If this is negative would need to consider pursuing a diagnostic heart catheterization despite her most recent heart catheterization in August 2021. If we do pursue a diagnostic heart catheterization and this remains unchanged from previous heart cath would need to consider her decrease in ejection fraction could be related to arrhythmias. Since patient has been without cardiac medications for several months would like to reintroduce them, recommend resuming her beta-cora, aspirin and atorvastatin. In the future we will need to monitor her ejection fraction closely, if this does not improve patient will need to be considered for prophylactic ICD. HPI Consult Data Date of Consult: 01/17/22 HPI Narrative HPI Narrative: ECHO KERNS, is a 66-year-old female presented to the emergency room with concerns over coughing for approximately 2 weeks. While she was laying in bed last night she felt like that her heart started to race. EMS was called. EKG demonstrated SVT. EMS did give her 6 mg of adenosine, she did convert to sinus rhythm. She then returned to SVT, she was given 12 mg of IV adenosine in the emergency room she did convert to sinus rhythm but then quickly converted back to SVT. Patient did undergo a synchronized cardioversion however patient did not maintain sinus rhythm and converted back to SVT. She was started on IV Cardizem and admitted to the hospital. Patient was last seen in our office in 2019. She does have a history of non-ST myocardial infarction in 2017. Heart catheterization demonstrated at that time small diagonal branch being occluded, remainder of vessels reported mild to moderate disease. She did not undergo catheter-based revascularization at that time. Medical management was recommended. She was admitted to the hospital in August 2021 with a non-STEMI. She underwent a nuclear stress test which did not demonstrate any evidence of myocardial ischemia or infarction and her ejection fraction was noted to be 45%. Heart catheterization demonstrated severe hypokinesis of the distal anterior apical wall with moderate disease of the distal LAD with 70% stenosis. Because of this she did undergo a stress test to evaluate for any viability in that area. Medical management was recommended.She tells me that she did not follow up d/t her housing situation. She does have a history of coronary artery disease, ischemic cardiomyopathy, hypertension, hyperlipidemia and tobacco abuse. In talking with patient patient notes that she did not follow-up with us in the office after her hospital stay in August due to her housing situation. She also tells me that she had not been on her medications for several months again due to her housing situation. She tells me that she does occasionally have chest discomfort this is not changed. She does occasionally have palpitations and fast heart beats but it was most significant last night where she also had chest discomfort when she came into the emergency room. She does not have any worsening shortness of breath. She does note that she has had a cough that has been persistent over the last few weeks which she also had right lower quadrant pain. She does not have any lightheadedness or dizziness. She also has concerns about neuropathy but does not have any lower extremity edema. [facility] Medical History (Updated 01/17/22 @ 11:52 by Delilah RIBERA, PA) Anxiety and depression Atherosclerotic heart disease of [place] coronary artery without angina pectoris Calculus of left kidney COPD (chronic obstructive pulmonary disease) Depression Essential hypertension GERD (gastroesophageal reflux disease) History of non-ST elevation myocardial infarction (NSTEMI) (09/01/21) Hyperlipidemia Ischemic cardiomyopathy Kidney stones Myocardial infarct Obesity (BMI 30.0-34.9) Old anterior wall myocardial infarction Opiate dependence EVELYN (obstructive sleep apnea) Osteoporosis Personal history of transient ischemic attack (TIA), and cerebral infarction without residual deficits Smoker Sustained SVT TIA (transient ischemic attack) Tobacco abuse Home Medications aspirin 81 mg PO DAILY 07/21/18 [History Last Taken 07/05/20] omeprazole 40 mg PO DAILY 12/24/18 [History Last Taken 07/05/20] lorazepam 1 mg PO BID PRN PRN 06/15/21 [History Last Taken Unknown] atorvastatin [Lipitor] 40 mg PO QHS #30 tab 09/02/21 [Rx Last Taken Unknown] carvedilol [Coreg] 3.125 mg PO BID #60 tab 09/02/21 [Rx Last Taken Unknown] gabapentin 300 mg PO TID #90 cap 01/01/22 [Rx Last Taken Unknown] lisinopril 10 mg PO TID 01/01/22 [History Last Taken Unknown] meclizine 25 mg PO Q8H PRN PRN #16 tab 01/01/22 [Rx Last Taken Unknown] ondansetron 4 mg PO Q8H PRN #10 tab 01/01/22 [Rx Last Taken Unknown] doxycycline monohydrate 100 mg PO BID 01/17/22 [History Last Taken Unknown] venlafaxine 150 mg PO DAILY 01/17/22 [History Last Taken Unknown] Allergy/AdvReac Type Severity Reaction Status Date / Time No Known Allergies Allergy Verified 11/25/21 20:01 Family History Mother Hypertension CAD (coronary artery disease) CVA (cerebral vascular accident) Myocardial infarction Grandmother Myocardial infarction Surgical History History of hysterectomy History of left heart catheterization (09/02/21) History of total hysterectomy Hx of appendectomy Social History Smoking Status: Current every day smoker tobacco type: cigarettes alcohol intake: never substance use type: does not use ROS ROS Narrative See HPI Physical Exam Const alert, oriented x3 and no apparent distress General Appearance: cooperative HEENT hearing grossly normal bilaterally Head and Scalp: atraumatic Eyes EOMs intact bilaterally Neck General: normal visual inspection Chest inspection of chest normal and palpation of chest normal Resp normal respiratory effort Auscultation: crackles diffuse (i/e scattered t/o) and diminished lung sounds diffuse Cardio regular rate, regular rhythm, S1 normal heart sound and S2 normal heart sound Jugular Venous Distention: JVD Heart Sounds: gallop S4 gallop and murmur systolic II/ soft GI normal to inspection, nondistended, normoactive bowel sounds Extremity normal capillary refill and no pedal edema Peripheral Pulses: Yes pulses 2+ throughout and femoral pulses present Skin no rashes or lesions noted Neuro oriented x3 and CN's II-XII intact bilaterally Psych Appearance: grossly normal and appropriate Risk Stratification Risk Stratification Applicable: Yes Age >/= 65: Yes >/= 3 CAD Risk Factors (HTN, HLD, DM, family hx of CAD, or current smoker): Yes Aspirin Use in the Past 7 Days: No Severe Angina (>/= episodes in 24 hours): No EKG ST Changes >/= 0.5mm: No Positive Cardiac Marker: Yes CELESTE Risk Stratification Score: 3 CELESTE % Risk: 13% Risk Charges/Coding Visit Charges Office Visits / Consults: [id number] IP Consult L3 Objective Data Vital Signs: Vital Signs Temp Pulse Resp BP Pulse Ox 98.2 F 79 18 111/81 H 100 01/17/22 06:00 01/17/22 08:00 01/17/22 08:00 01/17/22 08:15 01/17/22 08:00 Oxygen Flow Rate (L/min) [3] 2 Oxygen Flow Rate (L/min) [1 ( 2 Initial Baseline)] Oxygen Flow Rate (L/min) 2 Oxygen Delivery Method [3] Nasal Cannula Oxygen Delivery Method [1 ( Nasal Cannula Initial Baseline)] Oxygen Delivery Method Nasal Cannula Weight: 190 lb 11.198 oz Body Mass Index (BMI) 31.7 Intake & Output: Intake and Output for Last 24 Hours 01/15/22 01/16/22 01/17/22 23:59 23:59 23:59 Intake Total Balance Lab / Micro Data Result Diagrams: 01/17/22 07:19 01/17/22 05:28 Labs: Laboratory Results - last 24 hr 01/17/22 00:56: WBC 10.3, RBC 3.83 L, Hgb 12.0, Hct 37.2, MCV 97.1, MCH 31.3, MCHC 32.3, RDW Std Deviation 47.0 H, RDW Coeff of Sariah 13.3, Plt Count 290, MPV 9.1, Immature Gran % (Auto) 0.500, Neut % (Auto) 63.4, Lymph % (Auto) 25.0, [place] % (Auto) 9.8, Eos % (Auto) 0.9, Baso % (Auto) 0.4, Absolute Neuts (auto) 6.6, Absolute Lymphs (auto) 2.58, Nucleated RBC % 0 01/17/22 00:56: Sodium 144, Potassium 3.3 L, Chloride 111 H, Carbon Dioxide 28.0, Anion Gap 5, BUN 27 H, Creatinine 0.91, Estim Creat Clear Calc 55.46, Est GFR (MDRD) Af Amer 79, Est GFR (MDRD) Non-Af 66, BUN/Creatinine Ratio 29.5 H, Glucose 143 H, Calcium 9.9, Magnesium 2.1, Troponin I High Sens 38 01/17/22 00:56: TSH 1.21 01/17/22 05:28: Sodium 142, Potassium 4.1, Chloride 110 H, Carbon Dioxide 28.0, Anion Gap 4 L, BUN 27 H, Creatinine 0.75, Estim Creat Clear Calc 67.29, Est GFR (MDRD) Af Amer 100, Est GFR (MDRD) Non-Af 82, BUN/Creatinine Ratio 36.0 H, Glucose 113 H, Calcium 8.8 01/17/22 05:28: TSH 2.76 01/17/22 05:28: Troponin I High Sens 121 H* 01/17/22 06:45: Troponin I High Sens 234 H* 01/17/22 07:19: WBC 11.3 H, RBC 3.69 L, Hgb 11.4 L, Hct 36.5 L, MCV 98.9, MCH 30.9, MCHC 31.2 L, RDW Std Deviation 47.9 H, RDW Coeff of Sariah 13.5, Plt Count 353, MPV 9.4, Immature Gran % (Auto) 0.700, Neut % (Auto) 53.9, Lymph % (Auto) 34.6, [place] % (Auto) 8.7, Eos % (Auto) 1.6, Baso % (Auto) 0.5, Absolute Neuts (auto) 6.1, Absolute Lymphs (auto) 3.92, Nucleated RBC % 0 01/17/22 07:19: D-Dimer Quant (PE/DVT) 1.34 H* Cardiology Labs/Tests 01/17/22 00:56: WBC 10.3, RBC 3.83 L, Hgb 12.0, Hct 37.2, MCV 97.1, MCH 31.3, MCHC 32.3, Plt Count 290, MPV 9.1, Immature Gran % (Auto) 0.500, Neut % (Auto) 63.4, Lymph % (Auto) 25.0, [place] % (Auto) 9.8, Eos % (Auto) 0.9, Baso % (Auto) 0.4, Absolute Neuts (auto) 6.6, Nucleated RBC % 0 01/17/22 00:56: Sodium 144, Potassium 3.3 L, Chloride 111 H, Carbon Dioxide 28.0, Anion Gap 5, BUN 27 H, Creatinine 0.91, Est GFR (MDRD) Af Amer 79, Est GFR (MDRD) Non-Af 66, BUN/Creatinine Ratio 29.5 H, Glucose 143 H, Calcium 9.9, Magnesium 2.1 01/17/22 05:28: Sodium 142, Potassium 4.1, Chloride 110 H, Carbon Dioxide 28.0, Anion Gap 4 L, BUN 27 H, Creatinine 0.75, Est GFR (MDRD) Af Amer 100, Est GFR (MDRD) Non-Af 82, BUN/Creatinine Ratio 36.0 H, Glucose 113 H, Calcium 8.8 01/17/22 07:19: WBC 11.3 H, RBC 3.69 L, Hgb 11.4 L, Hct 36.5 L, MCV 98.9, MCH 30.9, MCHC 31.2 L, Plt Count 353, MPV 9.4, Immature Gran % (Auto) 0.700, Neut % (Auto) 53.9, Lymph % (Auto) 34.6, [place] % (Auto) 8.7, Eos % (Auto) 1.6, Baso % (Auto) 0.5, Absolute Neuts (auto) 6.1, Nucleated RBC % 0 01/17/22 07:19: D-Dimer Quant (PE/DVT) 1.34 H* Rhythm: Currently SR. EKG: Supraventricular tachycardia Nonspecific ST and T wave abnormality HR 164 ECHO: 09/01/2021 Normal LV size. Left ventricular systolic function is normal. The estimated ejection fraction is 47 %. Stage 1 diastolic dysfunction. Mild to moderate segmental systolic dysfunction (see wall motion). Echocardiogram today 01/17/2022: Moderately dilated left ventricle. Severe segmental systolic dysfunction (see wall motion). The estimated ejection fraction is 20 %. Right ventricular apex appears dyskinetic. Moderate segmental dysfunction of right ventricle. The left atrium is moderately enlarged. Mild focal mitral valve calcification of the posterior leaflet. Moderately severe (3+) eccentric mitral valve insufficiency. Mild tricuspid valve insufficiency. Mild focal aortic valve calcification. Trivial pericardial effusion. There are no echocardiographic indications of cardiac tamponade. Right ventricular systolic pressure estimated to be 36 mmHg. Transmitral diastolic flow velocities suggest diastolic dysfunction (pseudonormal pattern). Stress Test: 09/02/2021: Resting KG demonstrates a normal sinus rhythm with a rate of 86 bpm. Resting blood pressure is 128/94 mmHg. 0.4 mg of regadenoson was infused per usual protocol followed by rapid intravenous saline flush injection continuous EKG monitoring was performed. The maximum heart rate attained was 111 bpm which was 71% of max impact at heart rate the maximum workload was 1 metabolic equivalent. At rest there were no ST or T wave changes noted to suggest abnormal flow reserve and at peak infusion nonspecific ST changes were noted. No clinical angina was noted. Myocardial perfusion protocol. 12.0 mCi of technetium 99m sestamibi was injected at rest. 0.4 mg of regadenoson was infused per usual protocol. At peak infusion 36.0 mCi of technetium 99m sestamibi was injected stress images were obtained stress and rest images were reconstructed and compared in the short axis vertical long and horizontal long axis. Gated images were also obtained. Perfusion SPECT analysis: Review of the stress images demonstrate normal uptake of tracer noted in all areas of the myocardium except for the mid to distal anterior wall apex and inferior apical wall. The septum lateral wall and inferior wall appear to be well perfused. The resting images demonstrate a similar pattern suggestive of a previous extensive anterior apical infarct. No ischemia is noted and no viability is noted. Gated SPECT analysis: The gated ejection fraction is approximately 45%. Conclusion: Pharmacologic myocardial perfusion stress test with evidence of anterior apical infarct. No ischemia noted. Cardiac Cath: 09/02/2021: Severe hypokinesis of the distal anterior apical wall with moderate disease noted in the distal left anterior descending artery. RECOMMENDATIONS We will recommend pharmacologic stress test for viability in the distal anterior wall. Depending on the results of those tests further recommendations will be made DESCRIPTION OF PROCEDURE The patient arrived to the procedure lab. The risks and benefits of the procedure as well as a full description of our services here and current unavailability of surgical backup were fully explained to the patient and/or their significant other prior to the catheterization. The Timeout was completed, verifying the correct patient and procedure. The patient's procedural site was prepped and draped in the usual fashion. Local anesthetic was given subcutaneously to right radial region with Lidocaine 2%. Using a modified Seldinger technique, arterial access was obtained via the right radial artery, a 6Fr sheath was inserted. Left Coronary Artery selective angiography was performed in multiple views using a 5 Fr. 4.0 [place] catheter. Right Coronary Artery selective angiography was then performed in multiple views using a 5 Fr. 4.0 [place] catheter. Left Ventriculography was performed in VINCENT projection using a 5 Fr. [place] catheter. LV to AO pullback pressures were then recorded.The arterial sheath was pulled and a TR Band was applied for hemostasis. 10cc of air CORONARY ANGIOGRAPHY DOMINANCE: Right Dominant LEFT HEART ASSESSMENT Left Ventricular Ejection Fraction: by LV Gram 45 % Anterior Hypokinesis - Severe. Apical Hypokinesis - Severe Depressed Left Ventricular systolic function LEFT MAIN: Angiographically normal LEFT ANTERIOR DESCENDING ARTERY: Mild disease noted in the proximal LAD and in the distal LAD there is a long area of stenosis of approximately 70% and calcified. CIRCUMFLEX ARTERY: Mild luminal irregularities less than 30% RIGHT CORONARY ARTERY: Mild luminal irregularities less than 30% Radiography Diagnostic Testing: Radiology Impression Chest X-Ray 01/17/22 01:42 IMPRESSION: There is mild infiltrate at the right lung base not seen previously. Electronically Signed: Sanju Pierre MD at 2:46 EDT , Chest X-Ray 01/17/22 06:17 IMPRESSION: Prominence of the right-sided paramediastinal soft tissues which may represent aortic tortuosity and aneurysmal dilatation versus lymphadenopathy. Mild to moderate cardiac enlargement. Electronically Signed: Avelina Miller MD at 6:38 EDT , Documented by User: Dr. Danny Best MD 01/17/22 16:22 Assessment & Plan Addt'l Comments Addendum: 01-17-2022: The patient was independently evaluated and examined. The patient's history was reviewed with her. At the moment she appears to be resting comfortably with no acute symptoms. On examination she was noted to be without IV vasopressor support and with what appeared to be stable heart rate and blood pressure. Her cardiovascular examination demonstrated the appearance of a regular rhythm with a normal S1 and S2, soft S4, and a soft 2/6 systolic murmur at the lower left sternal border/apex/axillary area. The pulmonary evaluation demonstrated scattered wheezing and scattered rhonchi. Her laboratory studies were reviewed. Her ECGs appear to demonstrate an underlying narrow complex tachycardia which status post IV adenosine demonstrated subsequent termination to sinus rhythm with subsequent return to a narrow complex tachycardia which eventually required not only medical therapy but synchronized biphasic DC cardioversion to regain sinus rhythm. Her radiologic studies including a follow-up chest CTA were noted with concerns of a right-sided infiltrate but no obvious great vessel disease or thromboembolic disease. She did have a transthoracic echocardiogram performed with the findings as noted. At the present time there are concerns of the patient having an underlying SVT which based upon her response to IV adenosine may be compatible with an AVNRT. It is unclear as to whether or not this is led to her other cardiovascular findings. She does have findings of elevated troponin I levels compatible with a non-ST segment elevation MD which may be a type II event brought out by her supraventricular tachycardia superimposed upon her underlying cardiovascular status. She does have what appears to be diminished LV systolic function as well as right ventricular wall motion abnormalities and diminished systolic function-of uncertain etiology. There is also concern as to whether or not based upon her radiologic findings suggesting a right-sided pulmonary infiltrate as she has any underlying acute infectious disease process in place. At the present time from a cardiovascular standpoint she will continue to be monitored. She will reinitiate medical therapy such as aspirin, nitrates as needed, beta-blockers, diuretics as needed, afterload reducing agents, and lipid-lowering agents. Her cardiac rate and rhythm will be followed. She will be evaluated by internal medicine and pulmonology for the need for any additional noncardiovascular/pulmonary issues and/or therapy such as antibiotic therapy. She was evaluated in August 2021 with diagnostic cardiac catheterization which at that time did not appear to demonstrate angiographically significant appearing CAD but she did have left ventricular wall motion abnormalities which raise concerns as to whether or not she may have had some form of stress-induced cardiomyopathy. Based upon her ongoing issues and objective findings she may need reassessment in the cardiac catheterization laboratory to monitor for any progression of CAD that would be contributing to her overall clinical scenario and objective findings. She should continue risk factor evaluation and care in the interim as deemed appropriate. The patient's case has been previously discussed and reviewed with the patient, BACILIO Kaufman, as well as Dr. Crespo. This note was generated using a voice recognition system and there may be incorrect words, spelling or punctuation that were not noted when reviewing the office note prior to saving. HPI Consult Data Date of Consult: 01/17/22 [facility] Medical History (Updated 01/17/22 @ 11:52 by Delilah RIBERA, PA) Anxiety and depression Atherosclerotic heart disease of [place] coronary artery without angina pectoris Calculus of left kidney COPD (chronic obstructive pulmonary disease) Depression Essential hypertension GERD (gastroesophageal reflux disease) History of non-ST elevation myocardial infarction (NSTEMI) (09/01/21) Hyperlipidemia Ischemic cardiomyopathy Kidney stones Myocardial infarct Obesity (BMI 30.0-34.9) Old anterior wall myocardial infarction Opiate dependence EVELYN (obstructive sleep apnea) Osteoporosis Personal history of transient ischemic attack (TIA), and cerebral infarction without residual deficits Smoker Sustained SVT TIA (transient ischemic attack) Tobacco abuse Home Medications aspirin 81 mg PO DAILY 07/21/18 [History Last Taken 07/05/20] omeprazole 40 mg PO DAILY 12/24/18 [History Last Taken 07/05/20] lorazepam 1 mg PO BID PRN PRN 06/15/21 [History Last Taken Unknown] atorvastatin [Lipitor] 40 mg PO QHS #30 tab 09/02/21 [Rx Last Taken Unknown] carvedilol [Coreg] 3.125 mg PO BID #60 tab 09/02/21 [Rx Last Taken Unknown] gabapentin 300 mg PO TID #90 cap 01/01/22 [Rx Last Taken Unknown] lisinopril 10 mg PO TID 01/01/22 [History Last Taken Unknown] meclizine 25 mg PO Q8H PRN PRN #16 tab 01/01/22 [Rx Last Taken Unknown] ondansetron 4 mg PO Q8H PRN #10 tab 01/01/22 [Rx Last Taken Unknown] doxycycline monohydrate 100 mg PO BID 01/17/22 [History Last Taken Unknown] venlafaxine 150 mg PO DAILY 01/17/22 [History Last Taken Unknown] Allergy/AdvReac Type Severity Reaction Status Date / Time No Known Allergies Allergy Verified 11/25/21 20:01 Family History Mother Hypertension CAD (coronary artery disease) CVA (cerebral vascular accident) Myocardial infarction Grandmother Myocardial infarction Surgical History History of hysterectomy History of left heart catheterization (09/02/21) History of total hysterectomy Hx of appendectomy Social History Smoking Status: Current every day smoker tobacco type: cigarettes alcohol intake: never substance use type: does not use Lab / Micro Data Result Diagrams: 01/17/22 07:19 01/17/22 05:28
[2022-01-17] MEDS: Carvedilol 3.125 MG TABLET PO ×2 (08:56→16:42)
[2022-01-17] MEDS: Aspirin E.C. 81 MG Tablet PO (08:56)
[2022-01-17] MEDS: Enoxaparin 40 MG/0.4 ML Syringe SC (08:56)
[2022-01-17] MEDS: Venlafaxine XR 150 MG Capsule PO (08:56)
--- NOTE | 2022-01-17 10:48 | CT_ITS ---
STUDY: CTA CHEST REASON FOR EXAM: Female, 66 years old. SVT, recurrent, rule out PE RADIATION DOSAGE (If Supplied By Facility): CTDIvol = ( 13.21 ) mGy, DLP = ( 434.06 ) mGycm TECHNIQUE: The examination was performed with the intravenous administration of 100mL Isovue-370. Post-processing of the angiographic images was performed, with multiplanar reformation and 3D reconstruction. Individualized dose optimization techniques were used for this CT. COMPARISON: September 01, 2020 FINDINGS: Normal enhancement of the main pulmonary artery and right and left pulmonary arteries. Normal enhancement of the bilateral peripheral pulmonary arteries. There is no demonstrated pulmonary embolism. There is atherosclerotic calcification of the aortic arch with tortuosity. There is no demonstrated aortic dissection. There are calcifications of the coronary arteries. There is a small pericardial effusion. There is cardiac enlargement. Normal mediastinum. Normal hilar regions. Normal visualized trachea and bronchi. The lungs are well expanded. There is bilateral lower lung atelectasis. There is patchy right upper lung groundglass consolidation . There is stable cyst in the left anterior chest. Normal pleura. Normal chest wall structures. There is mild degenerative change of the spine. Normal visualized upper abdomen. CT/CTA Chest W/WO Contrast IMPRESSION: CTA chest examination, without a demonstrated pulmonary embolism or arterial dissection. Small right upper lung infiltrate. Lower lung atelectasis. Atherosclerosis. Small pericardial effusion. Cardiac enlargement. Electronically Signed: Linus Carvalho MD at 11:31 EDT Reading Location ID and State: [facility] / [place] , Service support ,
[2022-01-17] MEDS: Gabapentin 300 MG Capsule PO ×2 (11:28→16:44)
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
[2022-01-17 12:36] LABS: Troponin-I HS 1176 pg/mL (3.0-54.0)
--- NOTE | 2022-01-17 14:00 | CASEMGMT ---
RN informed AC that patient's daughter would like to talk with Social Work regarding SNF placement for patient. SW called patient's daughter. Introduced self. Patient's daughter, Marleny said she needs help with making sure her mom takes her medications correctly. Marleny feels patient is not taking them the way she is supposed to. AC mentioned [facility] and [facility]. Marleny said a medication dispensing machine won't really help as she wants to make sure patient is taking her meds and taking them accurately. Marleny said patient is fighting her on going to a chcf. AC told Marleny we will see how she does with therapy and talk with patient about options. Tati Riggs AIRCRAFT MAINTENANCE ENGINEER NEVAEH
--- NOTE | 2022-01-17 14:17 | CHAPLAIN ---
Type of Pastoral Visit _x__ Initial Visit ___ Follow-up Visit ___ On-call Visit ___ General Patient Visit ___ Spiritual Assessment ___ Family Conference ___ Bereavement ___ Rapid Response ___ Code Blue ___ Other (describe below) Pastoral Care Referral From _x__ Patient ___ Family ___ Nurse ___ Physician ___ Propeller Driven Airplane Mechanic ___ Sales And Marketing Representative ___ Other (describe below) Sacrament/Intervention _x__ Active listening ___ Anointing ___ Holiness ___ Bereavement ___ Communion ___ Ramila exploration ___ ___ Life review _x__ Prayer ___ Reconciliation ___ Sacrament of Sick _x__ Supportive presence ___ Wedding ___ Other (describe below) Pastoral Comments patient is awake, pt admits that she is not doing real well; pt says that some of her family are still in [place] and some are in [place]; pt welcomes a prayer and says I do believe in God; pt not sure what she might need now
[2022-01-17] MEDS: Acetaminophen 325 MG Tablet 650 MG PO (16:42)
[2022-01-17] MEDS: Morphine 2 MG/ML Syringe 1 MG IV (18:00)
[2022-01-17] MEDS: Lisinopril 2.5 MG Tablet PO (21:55)
[2022-01-17] MEDS: Atorvastatin Calcium 40 MG Tablet PO (21:55)
[2022-01-17] MEDS: LORazepam 1 MG Tablet PO (22:51)
[2022-01-18] VITALS (32 sets, daily range): BP systolic 80–140; BP diastolic 3–107; PULSE 56–163; RESP 12–23; TEMP 36.3–36.8; O2SAT 86–98
[2022-01-18 05:03] LABS: Absolute Lymphocyte Count 2.73 X10^3/uL (0.83-4.51); Absolute Neutrophil Count 2.9 X10^3/uL (2.0-7.7); Basophil# 0.08 X10^3/uL; Basophil% 1.2 % (0-1); Eosinophil# 0.38 X10^3/uL; Eosinophils% 5.6 % (0-5); Hematocrit 36.8 % (37-47); Hemoglobin 11.5 g/dL (12.0-15.0); Lymphocyte # 2.73 X10^3/ul (0.83-4.51); Lymphocyte % 40.6 % (19-41); Mean Corp Hgb Conc 31.3 g/dL (32-36); Mean Corpuscular Hgb 31.5 pg (27.0-32.0); Mean Corpuscular Volume 100.8 fL (81-99); Mean Platelet Vol. 9.4 fl (6.2-12.0); Monocyte# 0.61 X10^3/uL; Monocyte% 9.1 % (0-10); NRBC Flagged by Analyzer 0 % (0-5); Neutrophil # 2.88 X10^3/uL (2.7-7.7); Neutrophil % 42.8 % (47-70); Platelet Count 297 K/mm3 (150-450); RBC Distribution Width CV 13.7 % (11.6-14.6); RBC Distribution Width SD 50.4 fl (35.1-43.9); Red Blood Count 3.65 M/mm3 (4.2-5.4); White Blood Count 6.7 K/mm3 (4.4-11.0)
[2022-01-18 05:42] LABS: ALB/GLOB Ratio 0.8 RATIO (0.9-2.4); AST(SGOT) 29 U/L (15-37); Alanine Aminotransfer ALT/SGPT 38 U/L (13-56); Albumin, Serum 2.8 g/dL (3.2-5.0); Alkaline Phosphatase 165 U/L (45-117); Anion Gap 4 (5-15); BUN 25 mg/dL (7-18); BUN/Creat Ratio 30.6 RATIO (10-20); Chloride 110 mmol/L (98-107); Creatinine, Serum 0.82 mg/dL (0.55-1.02); EST Glomerular Filtration Rate 75 mL/min (>60); Est Glom Filt Rate - Afr Amer 90 mL/min (>60); Estimated Creatinine Clearance 61.55 ml/min; Globulin 3.6 g/dL (2.2-4.2); Glucose 93 mg/dL (74-106); Potassium 4.2 mmol/L (3.5-5.1); Protein, Total 6.4 g/dL (6.4-8.2); Sodium Level 142 mmol/L (136-145)
--- NOTE | 2022-01-18 07:00 | PCM.PN.INT ---
Assessment & Plan Assessment/Plan (1) Sustained SVT: (2) Old anterior wall myocardial infarction: (3) Ischemic cardiomyopathy: (4) Tobacco abuse: PLAN: RECOMMENDATIONS: 1. Defer to cardiology on rate control/work-up 2. Okay for diuretic therapy from my perspective 3. Consider discontinuation of antibiotics 4. Hemodynamically stable on room air. Will sign off from a critical care perspective 5. Patient could follow-up as an outpatient if requested. Just call our office when she is ready to go IMPRESSIONS: 1. SVT in the setting of a recent anterior MA with ischemic cardiomyopathy Patient with shortened MA interval. Unclear if patient may have a predisposition such as WPW leading to resistant change. Transient hypotension following conversion likely secondary to Cardizem drip. Levophed no longer required. Urgent echocardiogram showed significant decrease in EF. Await for cardiology recommendations. 2. Transient hypoxia Clinical suspicion for an element of congestive heart failure leading to pulmonary edema. Patient would benefit from diuretics from a pulmonary perspective. Patient did have transient BiPAP rescue, but appears to have redistributed at this time. Patient does carry a diagnosis of COPD and tobacco abuse. Patient was encouraged to quit smoking. Outpatient complete PFT for quantification clarification of lung function would be appropriate. Discontinue antibiotics. Could follow-up as an outpatient 3. Advanced age/hypertension/hyperlipidemia/active tobacco abuse/obesity Complicates care, management, recovery and prognosis. Hold antihypertensives for now given acute condition. Okay to continue with other baseline medications. Patient does not require doxycycline that she is currently receiving Levaquin. Subjective Subjective Patient did well overnight. No acute issues were reported. Patient subjectively feels improved compared to previous. No supplemental oxygen, fluid boluses or pressors have been required overnight. Patient is not reporting any chest pain or abdominal pain. Objective Data Objective Data Vital Signs: Vital Signs Temp Pulse Resp BP Pulse Ox 36.6 C 88 17 125/82 H 98 01/18/22 03:00 01/18/22 06:38 01/18/22 03:00 01/18/22 03:00 01/18/22 03:00 Oxygen Flow Rate (L/min) [3] 2 Oxygen Flow Rate (L/min) [1 ( 2 Initial Baseline)] Oxygen Flow Rate (L/min) 2 Oxygen Delivery Method [3] Nasal Cannula Oxygen Delivery Method [1 ( Nasal Cannula Initial Baseline)] Oxygen Delivery Method Room Air Weight: 88.4 kg Body Mass Index (BMI) 31.7 Intake & Output: Intake and Output for Last 24 Hours 01/16/22 01/17/22 01/18/22 23:59 23:59 23:59 Intake Total 2763.41 / 2763.41 150 / 150 Output Total 325 / 325 Balance 2438.41 / 2438.41 150 / 150 Lab / Micro Data Result Diagrams: 01/18/22 04:10 01/18/22 04:10 Labs: Laboratory Results - last 24 hr 01/17/22 06:45: Troponin I High Sens 234 H* 01/17/22 07:19: WBC 11.3 H, RBC 3.69 L, Hgb 11.4 L, Hct 36.5 L, MCV 98.9, MCH 30.9, MCHC 31.2 L, RDW Std Deviation 47.9 H, RDW Coeff of Sariah 13.5, Plt Count 353, MPV 9.4, Immature Gran % (Auto) 0.700, Neut % (Auto) 53.9, Lymph % (Auto) 34.6, [place] % (Auto) 8.7, Eos % (Auto) 1.6, Baso % (Auto) 0.5, Absolute Neuts (auto) 6.1, Absolute Lymphs (auto) 3.92, Nucleated RBC % 0 01/17/22 07:19: D-Dimer Quant (PE/DVT) 1.34 H* 01/17/22 12:00: Troponin I High Sens 1176 H* 01/18/22 04:10: WBC 6.7, RBC 3.65 L, Hgb 11.5 L, Hct 36.8 L, MCV 100.8 H, MCH 31.5, MCHC 31.3 L, RDW Std Deviation 50.4 H, RDW Coeff of Sariah 13.7, Plt Count 297, MPV 9.4, Immature Gran % (Auto) 0.700, Neut % (Auto) 42.8 L, Lymph % (Auto) 40.6, [place] % (Auto) 9.1, Eos % (Auto) 5.6 H, Baso % (Auto) 1.2 H, Absolute Neuts (auto) 2.9, Absolute Lymphs (auto) 2.73, Nucleated RBC % 0 01/18/22 04:10: Sodium 142, Potassium 4.2, Chloride 110 H, Carbon Dioxide 28.0, Anion Gap 4 L, BUN 25 H, Creatinine 0.82, Estim Creat Clear Calc 61.55, Est GFR (MDRD) Af Amer 90, Est GFR (MDRD) Non-Af 75, BUN/Creatinine Ratio 30.6 H, Glucose 93, Calcium 9.0, Total Bilirubin 0.20, AST 29, ALT 38, Alkaline Phosphatase 165 H, Total Protein 6.4, Albumin 2.8 L, Globulin 3.6, Albumin/Globulin Ratio 0.8 L Radiography Diagnostic Testing: Radiology Impression Echocardiogram 01/17/22 04:40 Interpretation Summary The study was technically difficult. Contrast injection was performed. Moderately dilated left ventricle. Severe segmental systolic dysfunction (see wall motion). The estimated ejection fraction is 20 %. Right ventricular apex appears dyskinetic. Moderate segmental dysfunction of right ventricle. The left atrium is moderately enlarged. Mild focal mitral valve calcification of the posterior leaflet. Moderately severe (3+) eccentric mitral valve insufficiency. Mild tricuspid valve insufficiency. Mild focal aortic valve calcification. Trivial pericardial effusion. There are no echocardiographic indications of cardiac tamponade. Right ventricular systolic pressure estimated to be 36 mmHg. Transmitral diastolic flow velocities suggest diastolic dysfunction (pseudonormal pattern). Ordering Physician: Ken Banda Performed By: Cathy Whitaker, SAMIA Chest CTA 01/17/22 10:48 IMPRESSION: CTA chest examination, without a demonstrated pulmonary embolism or arterial dissection. Small right upper lung infiltrate. Lower lung atelectasis. Atherosclerosis. Small pericardial effusion. Cardiac enlargement. Electronically Signed: Linus Carvalho MD at 11:31 EDT Reading Location ID and State: [address] [place] [address] , Service support , Physical Exam Const alert, oriented x3 and no apparent distress General Appearance: appears older than stated age Nutritional Appearance: obese HEENT normocephalic, head/scalp atraumatic and hearing grossly normal bilaterally Eyes PERRL, EOMs intact bilaterally and conjunctivae normal Neck no lymphadenopathy, supple and no JVD Resp normal respiratory effort, no retractions, no use of accessory muscles and clear to auscultation bilaterally Cardio regular rate, regular rhythm, no murmurs and no JVD GI normal to inspection, nondistended, normoactive bowel sounds and soft to palpation Palpation: tender other (Point tenderness in the left romie-rectalsheath area at the level of the umbilicus. No hernia palpated) Extremity normal to inspection, full ROM and no clubbing, cyanosis or edema Skin no rashes or lesions noted, no wounds and skin turgor normal Neuro CN's II-XII intact bilaterally Psych affect normal Charges/Coding Visit Charges Inpatient E&M: 74946 Subs Hosp L2
--- NOTE | 2022-01-18 07:36 | CPS ---
Pt placed on 2 lpm. Saturation to 90%. Nurse aware of change.
[2022-01-18] MEDS: Enoxaparin 40 MG/0.4 ML Syringe SC (09:53)
[2022-01-18] MEDS: Carvedilol 3.125 MG TABLET PO (09:53)
[2022-01-18] MEDS: Aspirin E.C. 81 MG Tablet PO (09:53)
[2022-01-18] MEDS: Venlafaxine XR 150 MG Capsule PO (09:53)
[2022-01-18] MEDS: Lisinopril 2.5 MG Tablet PO ×2 (09:53→21:37)
--- NOTE | 2022-01-18 09:53 | PN.CARD_ITS ---
Subjective Subjective Overall patient is feeling well. She has not had any further chest discomfort or shortness of breath. Objective Data Vital Signs: Vital Signs Temp Pulse Resp BP Pulse Ox 98.3 F 80 18 140/83 H 96 01/18/22 09:46 01/18/22 09:46 01/18/22 09:46 01/18/22 09:46 01/18/22 09:46 Oxygen Flow Rate (L/min) [3] 2 Oxygen Flow Rate (L/min) [1 ( 2 Initial Baseline)] Oxygen Flow Rate (L/min) 2 Oxygen Delivery Method [3] Nasal Cannula Oxygen Delivery Method [1 ( Nasal Cannula Initial Baseline)] Oxygen Delivery Method Nasal Cannula Weight: 194 lb 14.218 oz Body Mass Index (BMI) 31.7 Intake & Output: Intake and Output for Last 24 Hours 01/16/22 01/17/22 01/18/22 23:59 23:59 23:59 Intake Total 2763.41 / 2763.41 272.25 / 272.25 Output Total 325 / 325 Balance 2438.41 / 2438.41 272.25 / 272.25 Lab / Micro Data Result Diagrams: 01/18/22 04:10 01/18/22 04:10 Labs: Laboratory Results - last 24 hr 01/17/22 12:00: Troponin I High Sens 1176 H* 01/18/22 04:10: WBC 6.7, RBC 3.65 L, Hgb 11.5 L, Hct 36.8 L, MCV 100.8 H, MCH 31.5, MCHC 31.3 L, RDW Std Deviation 50.4 H, RDW Coeff of Sariah 13.7, Plt Count 297, MPV 9.4, Immature Gran % (Auto) 0.700, Neut % (Auto) 42.8 L, Lymph % (Auto) 40.6, [place] % (Auto) 9.1, Eos % (Auto) 5.6 H, Baso % (Auto) 1.2 H, Absolute Neuts (auto) 2.9, Absolute Lymphs (auto) 2.73, Nucleated RBC % 0 01/18/22 04:10: Sodium 142, Potassium 4.2, Chloride 110 H, Carbon Dioxide 28.0, Anion Gap 4 L, BUN 25 H, Creatinine 0.82, Estim Creat Clear Calc 61.55, Est GFR (MDRD) Af Amer 90, Est GFR (MDRD) Non-Af 75, BUN/Creatinine Ratio 30.6 H, Glucose 93, Calcium 9.0, Total Bilirubin 0.20, AST 29, ALT 38, Alkaline Phosphatase 165 H, Total Protein 6.4, Albumin 2.8 L, Globulin 3.6, Albumin/Globulin Ratio 0.8 L Cardiology Labs/Tests 01/18/22 04:10: WBC 6.7, RBC 3.65 L, Hgb 11.5 L, Hct 36.8 L, MCV 100.8 H, MCH 31.5, MCHC 31.3 L, Plt Count 297, MPV 9.4, Immature Gran % (Auto) 0.700, Neut % (Auto) 42.8 L, Lymph % (Auto) 40.6, [place] % (Auto) 9.1, Eos % (Auto) 5.6 H, Baso % (Auto) 1.2 H, Absolute Neuts (auto) 2.9, Nucleated RBC % 0 01/18/22 04:10: Sodium 142, Potassium 4.2, Chloride 110 H, Carbon Dioxide 28.0, Anion Gap 4 L, BUN 25 H, Creatinine 0.82, Est GFR (MDRD) Af Amer 90, Est GFR (MDRD) Non-Af 75, BUN/Creatinine Ratio 30.6 H, Glucose 93, Calcium 9.0, Total Bilirubin 0.20 Rhythm: SR ECHO 01/17/2022: Moderately dilated left ventricle. Severe segmental systolic dysfunction (see wall motion). The estimated ejection fraction is 20 %. Right ventricular apex appears dyskinetic. Moderate segmental dysfunction of right ventricle. The left atrium is moderately enlarged. Mild focal mitral valve calcification of the posterior leaflet. Moderately severe (3+) eccentric mitral valve insufficiency. Mild tricuspid valve insufficiency. Mild focal aortic valve calcification. Trivial pericardial effusion. There are no echocardiographic indications of cardiac tamponade. Right ventricular systolic pressure estimated to be 36 mmHg. Transmitral diastolic flow velocities suggest diastolic dysfunction (pseudonormal pattern). Radiography Diagnostic Testing: Radiology Impression Chest CTA 01/17/22 10:48 IMPRESSION: CTA chest examination, without a demonstrated pulmonary embolism or arterial dissection. Small right upper lung infiltrate. Lower lung atelectasis. Atherosclerosis. Small pericardial effusion. Cardiac enlargement. Electronically Signed: Linus Carvalho MD at 11:31 EDT Reading Location ID and State: [address] [place] [address] , Service support , Physical Exam Const alert, oriented x3 and no apparent distress General Appearance: cooperative HEENT hearing grossly normal bilaterally Head and Scalp: atraumatic Eyes EOMs intact bilaterally Neck General: normal visual inspection Chest inspection of chest normal and palpation of chest normal Resp normal respiratory effort Auscultation: crackles diffuse (i/e scattered t/o) and diminished lung sounds diffuse Cardio regular rate, regular rhythm, S1 normal heart sound and S2 normal heart sound Jugular Venous Distention: JVD Heart Sounds: gallop S4 gallop and murmur systolic II/ soft GI normal to inspection, nondistended, normoactive bowel sounds Extremity normal capillary refill and no pedal edema Peripheral Pulses: Yes pulses 2+ throughout and femoral pulses present Skin no rashes or lesions noted Neuro oriented x3 and CN's II-XII intact bilaterally Psych Appearance: grossly normal and appropriate Assessment & Plan Assessment/Plan (1) Sustained SVT: (2) Atherosclerotic heart disease of seminole coronary artery without angina pectoris: QUALIFIERS: [place] vs. transplanted heart: unspecified whether seminole or transplanted heart Qualified Code(s): I25.10 - Atherosclerotic heart disease of seminole coronary artery without angina pectoris (3) History of non-ST elevation myocardial infarction (NSTEMI): (4) Ischemic cardiomyopathy: (5) Essential hypertension: (6) Hyperlipidemia: QUALIFIERS: Hyperlipidemia type: unspecified Qualified Code(s): E78.5 - Hyperlipidemia, unspecified PLAN: * It appears patient's SVT has resolved with her IV Cardizem. However she has had a recurrence of this after pt seen and evaluated. With her decrease in her EF, and for better HR control and less BP control will stop Coreg and start metoprolol 100mg BID. At d/c can switch over to Toprol XL 100 mg. Will add IV cardizem for rate control * Her troponin was slightly elevated, this could be related to a demand ischemia however it is noted that her echocardiogram demonstrated a significant decrease in her ejection fraction. Her ejection fraction is now 20%. She does have severe segmental systolic dysfunction in addition to her right ventricle now appears dyskinetic. CTA was negative for PE. Would like to continue to optimize medications for her decrease in EF. However with her hx of low Bp and SVT will stop coreg and start metoprolol. Despite pt having having recent heart cath in August of 2021 would like to plan on pursuing heart cath on Thursday to evaluate her decrease in EF. * Her decrease in EF could be related to takotsubo or recurrent tachy arrhythmias. * In the future we will need to monitor her ejection fraction closely, if this does not improve patient will need to be considered for prophylactic ICD. This case was discussed in detail with Dr. Buck Charges/Coding Visit Charges Inpatient E&M: 19925 [facility] Hosp L3
[2022-01-18] MEDS: Acetaminophen 325 MG Tablet 650 MG PO (09:57)
[2022-01-18] MEDS: Gabapentin 300 MG Capsule PO ×3 (09:57→16:20)
[2022-01-18] MEDS: 0.9% Saline Lock 10 ML Syringe IV (09:58)
[2022-01-18] MEDS: Furosemide 40 MG/4 ML Vial IV (09:58)
[2022-01-18] MEDS: LORazepam 1 MG Tablet PO ×2 (10:23→21:40)
[2022-01-18] MEDS: oxyCODONE 5 MG Tablet PO ×2 (11:25→23:36)
[2022-01-18] MEDS: Metoprolol Tartrate 5 MG/5 ML Vial IV (12:01)
[2022-01-18 12:22] LABS: Magnesium 1.8 mg/dL (1.6-2.6)
[2022-01-18] MEDS: Carvedilol 6.25 MG Tablet PO (12:34)
--- NOTE | 2022-01-18 13:13 | PN.HOSP_ITS ---
Subjective Subjective Follow-up on acute SVT/hypotension: Patient was seen and examined. She remained stable. Was off Levophed. Transf erred out of ICU. Heart rate remained stable until later in the afternoon when heart rate became elevated again. Objective Data Objective Data Vital Signs: Vital Signs Temp Pulse Resp BP Pulse Ox 98.0 F 151 H 18 113/87 H 98 01/18/22 12:32 01/18/22 12:32 01/18/22 12:32 01/18/22 12:32 01/18/22 12:32 Oxygen Flow Rate (L/min) [3] 2 Oxygen Flow Rate (L/min) [1 ( 2 Initial Baseline)] Oxygen Flow Rate (L/min) 2 Oxygen Delivery Method [3] Nasal Cannula Oxygen Delivery Method [1 ( Nasal Cannula Initial Baseline)] Oxygen Delivery Method Nasal Cannula Weight: 88.4 kg Body Mass Index (BMI) 31.7 Intake & Output: Intake and Output for Last 24 Hours 01/16/22 01/17/22 01/18/22 23:59 23:59 23:59 Intake Total 2763.41 / 2763.41 672.25 / 672.25 Output Total 325 / 325 400 / 400 Balance 2438.41 / 2438.41 272.25 / 272.25 Lab / Micro Data Result Diagrams: 01/18/22 04:10 01/18/22 04:10 Labs: Laboratory Results - last 24 hr 01/18/22 04:10: WBC 6.7, RBC 3.65 L, Hgb 11.5 L, Hct 36.8 L, MCV 100.8 H, MCH 31.5, MCHC 31.3 L, RDW Std Deviation 50.4 H, RDW Coeff of Sariah 13.7, Plt Count 297, MPV 9.4, Immature Gran % (Auto) 0.700, Neut % (Auto) 42.8 L, Lymph % (Auto) 40.6, [place] % (Auto) 9.1, Eos % (Auto) 5.6 H, Baso % (Auto) 1.2 H, Absolute Neuts (auto) 2.9, Absolute Lymphs (auto) 2.73, Nucleated RBC % 0 01/18/22 04:10: Sodium 142, Potassium 4.2, Chloride 110 H, Carbon Dioxide 28.0, Anion Gap 4 L, BUN 25 H, Creatinine 0.82, Estim Creat Clear Calc 61.55, Est GFR (MDRD) Af Amer 90, Est GFR (MDRD) Non-Af 75, BUN/Creatinine Ratio 30.6 H, Glucose 93, Calcium 9.0, Total Bilirubin 0.20, AST 29, ALT 38, Alkaline Phosphatase 165 H, Total Protein 6.4, Albumin 2.8 L, Globulin 3.6, Albumin/Globulin Ratio 0.8 L 01/18/22 04:10: Magnesium 1.8 Physical Exam Narrative Physical exam: General: Alert, oriented x3, cooperative, no apparent distress, on 2L oxygen HEENT: Atraumatic Oral: Moist Mucosa Neck: Supple Lungs: Diminished to auscultation Cardiovascular: HS I+II, regular, no murmurs Abdomen: Bowel Sounds Present, Soft, Non Tender Extremities: No edema Assessment & Plan Assessment/Plan (1) Sustained SVT: PLAN: 1. Acute persistent SVT, status post adenosine, IV Cardizem Started on Coreg; will give IV metoprolol x1, increase Coreg to 12.5 mg twice daily Check magnesium, cardiology following 2. Acute pneumonia ruled out from CTA of the chest Likely infiltrates are secondary to atelectasis as patient has no fever or leukocytosis Will discontinue antibiotics 3. Acute exacerbation of heart failure with reduced EF, EF 20%, ischemic cardiomyopathy Patient does not look fluid overloaded We will give Lasix 40mg x1, continue with Lasix 20mg po bid Continue lisinopril, aspirin 4. Nicotine dependence, continue with replacement 5. Hypertension/hyperlipidemia/obesity, stable Continue on lisinopril 2.5 mg, Coreg Check lipid profile in am 6. Hypomagnesemia, will replace, recheck in am 7. Depression, continue on Effexor 8. DVT PPx- Lovenox SC Charges/Coding Visit Charges Inpatient E&M: 92009 Subs Hosp L2
--- NOTE | 2022-01-18 20:01 | NURSING ---
Handoff report received, assumed care of pt at this time.
[2022-01-18] MEDS: Metoprolol Tartrate 50 MG Tablet PO (21:36)
[2022-01-18] MEDS: Atorvastatin Calcium 40 MG Tablet PO (21:37)
[2022-01-19] VITALS (24 sets, daily range): BP systolic 96–127; BP diastolic 67–97; PULSE 51–67; RESP 11–20; TEMP 36.6–36.8; O2SAT 86–100
[2022-01-19] MEDS: 0.9% Saline Lock 10 ML Syringe IV (06:25)
[2022-01-19] MEDS: Ondansetron 4 MG/2 ML Vial IV (06:25)
[2022-01-19] MEDS: oxyCODONE 5 MG Tablet PO ×2 (06:25→16:50)
[2022-01-19 06:57] LABS: Absolute Lymphocyte Count 2.71 X10^3/uL (0.83-4.51); Absolute Neutrophil Count 4.4 X10^3/uL (2.0-7.7); Basophil# 0.07 X10^3/uL; Basophil% 0.8 % (0-1); Eosinophil# 0.47 X10^3/uL; Eosinophils% 5.6 % (0-5); Hematocrit 37.4 % (37-47); Hemoglobin 11.7 g/dL (12.0-15.0); Lymphocyte # 2.71 X10^3/ul (0.83-4.51); Lymphocyte % 32.3 % (19-41); Mean Corp Hgb Conc 31.3 g/dL (32-36); Mean Corpuscular Hgb 31.4 pg (27.0-32.0); Mean Corpuscular Volume 100.3 fL (81-99); Mean Platelet Vol. 9.1 fl (6.2-12.0); Monocyte# 0.69 X10^3/uL; Monocyte% 8.2 % (0-10); NRBC Flagged by Analyzer 0 % (0-5); Neutrophil # 4.41 X10^3/uL (2.7-7.7); Neutrophil % 52.5 % (47-70); Platelet Count 286 K/mm3 (150-450); RBC Distribution Width CV 13.5 % (11.6-14.6); RBC Distribution Width SD 48.9 fl (35.1-43.9); Red Blood Count 3.73 M/mm3 (4.2-5.4); White Blood Count 8.4 K/mm3 (4.4-11.0)
[2022-01-19 07:31] LABS: ALB/GLOB Ratio 0.7 RATIO (0.9-2.4); AST(SGOT) 22 U/L (15-37); Alanine Aminotransfer ALT/SGPT 28 U/L (13-56); Albumin, Serum 2.6 g/dL (3.2-5.0); Alkaline Phosphatase 172 U/L (45-117); Anion Gap 2 (5-15); BUN 24 mg/dL (7-18); Calcium,Total 8.7 mg/dL (8.5-10.1); Chloride 108 mmol/L (98-107); Creatinine, Serum 0.89 mg/dL (0.55-1.02); EST Glomerular Filtration Rate 68 mL/min (>60); Est Glom Filt Rate - Afr Amer 82 mL/min (>60); Estimated Creatinine Clearance 56.71 ml/min; Globulin 3.5 g/dL (2.2-4.2); Glucose 125 mg/dL (74-106); Potassium 3.9 mmol/L (3.5-5.1); Protein, Total 6.1 g/dL (6.4-8.2); Sodium Level 141 mmol/L (136-145)
[2022-01-19] MEDS: Venlafaxine XR 150 MG Capsule PO (08:59)
[2022-01-19] MEDS: Aspirin E.C. 81 MG Tablet PO (08:59)
[2022-01-19] MEDS: Gabapentin 300 MG Capsule PO ×2 (08:59→16:47)
[2022-01-19] MEDS: Enoxaparin 40 MG/0.4 ML Syringe SC (09:00)
[2022-01-19] MEDS: Furosemide 20 MG Tablet PO ×2 (10:08→16:53)
--- NOTE | 2022-01-19 10:24 | PN.CARD_ITS ---
Subjective Subjective Patient did return to [facility] yesterday. She was given IV metoprolol x1, she was also started on IV Cardizem however she became hypotensive. This was discontinued. She was started on IV amiodarone she did convert to sinus rhythm. Pt notes that she was aware of this rhythm as she did have shoulder discomfort with the elevated heart rate, this has since resolved. She also noted some SOB with this. Objective Data Vital Signs: Vital Signs Temp Pulse Resp BP Pulse Ox 98 F 51 L 16 96/69 95 01/19/22 08:00 01/19/22 08:00 01/19/22 08:00 01/19/22 08:00 01/19/22 09:52 Oxygen Flow Rate (L/min) [3] 2 Oxygen Flow Rate (L/min) [1 ( 2 Initial Baseline)] Oxygen Flow Rate (L/min) 2 Oxygen Delivery Method [3] Nasal Cannula Oxygen Delivery Method [1 ( Nasal Cannula Initial Baseline)] Oxygen Delivery Method Nasal Cannula Weight: 195 lb 1.745 oz Body Mass Index (BMI) 31.7 Intake & Output: Intake and Output for Last 24 Hours 01/17/22 01/18/22 01/19/22 23:59 23:59 23:59 Intake Total 2763.41 / 2763.41 1451.42 / 1451.70 133.88 / 133.88 Output Total 325 / 325 1450 / 1450 Balance 2438.41 / 2438.41 1.42 / 1.70 133.88 / 133.88 Lab / Micro Data Result Diagrams: 01/19/22 06:41 01/19/22 06:41 Labs: Laboratory Results - last 24 hr 01/18/22 04:10: Magnesium 1.8 01/19/22 06:41: WBC 8.4, RBC 3.73 L, Hgb 11.7 L, Hct 37.4, MCV 100.3 H, MCH 31.4, MCHC 31.3 L, RDW Std Deviation 48.9 H, RDW Coeff of Sariah 13.5, Plt Count 286, MPV 9.1, Immature Gran % (Auto) 0.600, Neut % (Auto) 52.5, Lymph % (Auto) 32.3, [place] % (Auto) 8.2, Eos % (Auto) 5.6 H, Baso % (Auto) 0.8, Absolute Neuts (auto) 4.4, Absolute Lymphs (auto) 2.71, Nucleated RBC % 0 01/19/22 06:41: Sodium 141, Potassium 3.9, Chloride 108 H, Carbon Dioxide 31.0, Anion Gap 2 L, BUN 24 H, Creatinine 0.89, Estim Creat Clear Calc 56.71, Est GFR (MDRD) Af Amer 82, Est GFR (MDRD) Non-Af 68, BUN/Creatinine Ratio 27.0 H, Glucose 125 H, Calcium 8.7, Total Bilirubin 0.20, AST 22, ALT 28, Alkaline Phosphatase 172 H, Total Protein 6.1 L, Albumin 2.6 L, Globulin 3.5, Albumin/Globulin Ratio 0.7 L Cardiology Labs/Tests 01/18/22 04:10: Magnesium 1.8 01/19/22 06:41: WBC 8.4, RBC 3.73 L, Hgb 11.7 L, Hct 37.4, MCV 100.3 H, MCH 31.4, MCHC 31.3 L, Plt Count 286, MPV 9.1, Immature Gran % (Auto) 0.600, Neut % (Auto) 52.5, Lymph % (Auto) 32.3, [place] % (Auto) 8.2, Eos % (Auto) 5.6 H, Baso % (Auto) 0.8, Absolute Neuts (auto) 4.4, Nucleated RBC % 0 01/19/22 06:41: Sodium 141, Potassium 3.9, Chloride 108 H, Carbon Dioxide 31.0, Anion Gap 2 L, BUN 24 H, Creatinine 0.89, Est GFR (MDRD) Af Amer 82, Est GFR (MDRD) Non-Af 68, BUN/Creatinine Ratio 27.0 H, Glucose 125 H, Calcium 8.7, Total Bilirubin 0.20 Rhythm: SB Physical Exam Const alert, oriented x3 and no apparent distress General Appearance: cooperative HEENT hearing grossly normal bilaterally Head and Scalp: atraumatic Eyes EOMs intact bilaterally Neck General: normal visual inspection Chest inspection of chest normal and palpation of chest normal Resp normal respiratory effort Auscultation: crackles diffuse (i/e scattered t/o) and diminished lung sounds diffuse Cardio regular rate, regular rhythm, S1 normal heart sound and S2 normal heart sound Jugular Venous Distention: JVD Heart Sounds: gallop S4 gallop and murmur systolic II/ soft GI normal to inspection, nondistended, normoactive bowel sounds Extremity normal capillary refill and no pedal edema Peripheral Pulses: Yes pulses 2+ throughout and femoral pulses present Skin no rashes or lesions noted Neuro oriented x3 and CN's II-XII intact bilaterally Psych Appearance: grossly normal and appropriate Assessment & Plan Assessment/Plan (1) Sustained SVT: (2) Atherosclerotic heart disease of [place] coronary artery without angina pectoris: QUALIFIERS: [place] vs. transplanted heart: unspecified whether [place] or transplanted heart Qualified Code(s): I25.10 - Atherosclerotic heart disease of [place] coronary artery without angina pectoris (3) History of non-ST elevation myocardial infarction (NSTEMI): (4) Ischemic cardiomyopathy: (5) Essential hypertension: (6) Hyperlipidemia: QUALIFIERS: Hyperlipidemia type: unspecified Qualified Code(s): E78.5 - Hyperlipidemia, unspecified PLAN: * SVT resolved with addition of amiodarone. Once IV amiodarone is complete will switch to amiodarone 200 BID for 2 weeks then wean to 200 mg once a day. Since her HR appears controlled on amiodarone, will switch back to coreg and stop metoprolol. * Her troponin was slightly elevated, this could be related to a demand ischemia however it is noted that her echocardiogram demonstrated a significant decrease in her ejection fraction. Her ejection fraction is now 20%. She does have severe segmental systolic dysfunction in addition to her right ventricle now appears dyskinetic. CTA was negative for PE. Despite pt having having recent heart cath in August of 2021 would like to plan on pursuing heart cath on Thursday to evaluate her decrease in EF. She will continue with her Atorvastatin, Coreg, Lisinopril. Based on heart cath will decide if she needs antiplatelets. * Her decrease in EF could be related to tak[place]ubo or tachyarrthymia * In the future we will need to monitor her ejection fraction closely, if this does not improve patient will need to be considered for prophylactic ICD. This case was discussed in detail with Dr. Buck Charges/Coding Visit Charges Inpatient E&M: 38986 Subs Hosp L2
--- NOTE | 2022-01-19 12:34 | PN.HOSP_ITS ---
Subjective Subjective Follow-up on acute SVT/hypotension: Patient was seen and examined. Blood pressures have been relatively low. Nicki ent was started on amiodarone drip for SVT. Heart rate is much improved. Taken off amiodarone drip. Objective Data Objective Data Vital Signs: Vital Signs Temp Pulse Resp BP Pulse Ox 98 F 54 L 12 102/68 96 01/19/22 08:00 01/19/22 11:00 01/19/22 11:00 01/19/22 11:00 01/19/22 10:00 Oxygen Flow Rate (L/min) [3] 2 Oxygen Flow Rate (L/min) [1 ( 2 Initial Baseline)] Oxygen Flow Rate (L/min) 2 Oxygen Delivery Method [3] Nasal Cannula Oxygen Delivery Method [1 ( Nasal Cannula Initial Baseline)] Oxygen Delivery Method Nasal Cannula Weight: 88.5 kg Body Mass Index (BMI) 31.7 Intake & Output: Intake and Output for Last 24 Hours 01/17/22 01/18/22 01/19/22 23:59 23:59 23:59 Intake Total 2763.41 / 2763.41 1451.42 / 1451.70 183.98 / 183.98 Output Total 325 / 325 1450 / 1450 Balance 2438.41 / 2438.41 1.42 / 1.70 183.98 / 183.98 Lab / Micro Data Result Diagrams: 01/19/22 06:41 01/19/22 06:41 Labs: Laboratory Results - last 24 hr 01/19/22 06:41: WBC 8.4, RBC 3.73 L, Hgb 11.7 L, Hct 37.4, MCV 100.3 H, MCH 31.4, MCHC 31.3 L, RDW Std Deviation 48.9 H, RDW Coeff of Sariah 13.5, Plt Count 286, MPV 9.1, Immature Gran % (Auto) 0.600, Neut % (Auto) 52.5, Lymph % (Auto) 32.3, [place] % (Auto) 8.2, Eos % (Auto) 5.6 H, Baso % (Auto) 0.8, Absolute Neuts (auto) 4.4, Absolute Lymphs (auto) 2.71, Nucleated RBC % 0 01/19/22 06:41: Sodium 141, Potassium 3.9, Chloride 108 H, Carbon Dioxide 31.0, Anion Gap 2 L, BUN 24 H, Creatinine 0.89, Estim Creat Clear Calc 56.71, Est GFR (MDRD) Af Amer 82, Est GFR (MDRD) Non-Af 68, BUN/Creatinine Ratio 27.0 H, Glucose 125 H, Calcium 8.7, Total Bilirubin 0.20, AST 22, ALT 28, Alkaline Phosphatase 172 H, Total Protein 6.1 L, Albumin 2.6 L, Globulin 3.5, Albumin/Globulin Ratio 0.7 L Physical Exam Narrative hysical exam: General: Alert, oriented x3, cooperative, no apparent distress, on 2L oxygen HEENT: Atraumatic Oral: Moist Mucosa Neck: Supple Lungs: Diminished to auscultation Cardiovascular: HS I+II, regular, no murmurs Abdomen: Bowel Sounds Present, Soft, Non Tender Extremities: No edema Assessment & Plan Assessment/Plan (1) Sustained SVT: PLAN: 1. Acute persistent SVT, now in normal sinus rhythm status post adenosine, IV Cardizem on admission Continue Coreg; did not tolerate metoprolol -had hypotension Check magnesium, cardiology following 2. Acute pneumonia ruled out from CTA of the chest Likely infiltrates are secondary to atelectasis as patient has no fever or leukocytosis Off antibiotics 3. Acute exacerbation of heart failure with reduced EF, EF 20%, ischemic cardiomyopathy Patient does not look fluid overloaded Continue with Lasix 20mg po bid Continue lisinopril, aspirin Cardiac cath planned in a.m. 4. Nicotine dependence, continue with replacement 5. Hypertension/hyperlipidemia/obesity, stable Continue on lisinopril 2.5 mg, Coreg Check lipid profile in am 6. Hypomagnesemia, replaced, recheck in am 7. Depression, continue on Effexor 8. DVT PPx- Lovenox SC Charges/Coding Visit Charges Inpatient E&M: 29255 Subs Hosp L2
[2022-01-19] MEDS: Amiodarone 200 MG Tablet PO (20:59)
[2022-01-19] MEDS: Atorvastatin Calcium 40 MG Tablet PO (21:00)
[2022-01-19] MEDS: Carvedilol 6.25 MG Tablet PO (21:00)
[2022-01-19] MEDS: Lisinopril 2.5 MG Tablet PO (21:00)
[2022-01-19] MEDS: LORazepam 1 MG Tablet PO (22:06)
[2022-01-20] VITALS (15 sets, daily range): BP systolic 95–134; BP diastolic 55–85; PULSE 55–73; RESP 18–20; TEMP 36.3–36.6; O2SAT 91–100
[2022-01-20] MEDS: Ondansetron 4 MG/2 ML Vial IV (02:37)
[2022-01-20] MEDS: 0.9% Saline Lock 10 ML Syringe IV ×2 (02:37→15:01)
[2022-01-20 06:40] LABS: Absolute Lymphocyte Count 2.22 X10^3/uL (0.83-4.51); Absolute Neutrophil Count 4.8 X10^3/uL (2.0-7.7); Basophil# 0.05 X10^3/uL; Basophil% 0.6 % (0-1); Eosinophil# 0.42 X10^3/uL; Eosinophils% 5.2 % (0-5); Hematocrit 38.1 % (37-47); Lymphocyte # 2.22 X10^3/ul (0.83-4.51); Lymphocyte % 27.3 % (19-41); Mean Corp Hgb Conc 31.5 g/dL (32-36); Mean Corpuscular Hgb 31.7 pg (27.0-32.0); Mean Corpuscular Volume 100.5 fL (81-99); Mean Platelet Vol. 9.3 fl (6.2-12.0); Monocyte# 0.61 X10^3/uL; Monocyte% 7.5 % (0-10); NRBC Flagged by Analyzer 0 % (0-5); Neutrophil # 4.78 X10^3/uL (2.7-7.7); Neutrophil % 58.8 % (47-70); Platelet Count 259 K/mm3 (150-450); RBC Distribution Width CV 13.2 % (11.6-14.6); RBC Distribution Width SD 48.7 fl (35.1-43.9); Red Blood Count 3.79 M/mm3 (4.2-5.4); White Blood Count 8.1 K/mm3 (4.4-11.0)
[2022-01-20 07:19] LABS: ALB/GLOB Ratio 0.8 RATIO (0.9-2.4); AST(SGOT) 20 U/L (15-37); Alanine Aminotransfer ALT/SGPT 27 U/L (13-56); Albumin, Serum 2.6 g/dL (3.2-5.0); Alkaline Phosphatase 165 U/L (45-117); Anion Gap 0 (5-15); BUN 23 mg/dL (7-18); BUN/Creat Ratio 25.7 RATIO (10-20); Calcium,Total 8.6 mg/dL (8.5-10.1); Chloride 105 mmol/L (98-107); Cholesterol 131 mg/dL (200); Creatinine, Serum 0.89 mg/dL (0.55-1.02); EST Glomerular Filtration Rate 67 mL/min (>60); Est Glom Filt Rate - Afr Amer 81 mL/min (>60); Estimated Creatinine Clearance 56.71 ml/min; Globulin 3.4 g/dL (2.2-4.2); Glucose 97 mg/dL (74-106); High Density Lipoprotein 32 mg/dL; Magnesium 1.9 mg/dL (1.6-2.6); Potassium 3.8 mmol/L (3.5-5.1); Sodium Level 140 mmol/L (136-145); Triglycerides 157 mg/dL; Very Low Density Lipoprotein 31 mg/dL (5-40)
--- NOTE | 2022-01-20 07:35 | PN.CARD_ITS ---
Subjective Subjective The patient is a awake and alert. She denies any ongoing chest discomfort or difficulty breathing at this time. She states that she feels her breathing has improved since her arrival at the hospital. Objective Data Vital Signs: Vital Signs Temp Pulse Resp BP Pulse Ox 97.9 F 64 20 H 127/80 H 92 01/20/22 02:32 01/20/22 03:00 01/20/22 02:32 01/20/22 02:32 01/20/22 02:32 Oxygen Flow Rate (L/min) [3] 2 Oxygen Flow Rate (L/min) [1 ( 2 Initial Baseline)] Oxygen Flow Rate (L/min) 2 Oxygen Delivery Method [3] Nasal Cannula Oxygen Delivery Method [1 ( Nasal Cannula Initial Baseline)] Oxygen Delivery Method Nasal Cannula Weight: 193 lb 9.054 oz Body Mass Index (BMI) 31.7 Intake & Output: Intake and Output for Last 24 Hours 01/18/22 01/19/22 01/20/22 23:59 23:59 23:59 Intake Total 1451.42 / 1451.70 982.96 / 982.96 250 / 250 Output Total 1450 / 1450 100 / 100 Balance 1.42 / 1.70 882.96 / 882.96 250 / 250 Lab / Micro Data Result Diagrams: 01/20/22 06:10 01/20/22 06:10 Labs: Laboratory Results - last 24 hr 01/20/22 06:10: WBC 8.1, RBC 3.79 L, Hgb 12.0, Hct 38.1, MCV 100.5 H, MCH 31.7, MCHC 31.5 L, RDW Std Deviation 48.7 H, RDW Coeff of Sariah 13.2, Plt Count 259, MPV 9.3, Immature Gran % (Auto) 0.600, Neut % (Auto) 58.8, Lymph % (Auto) 27.3, [place] % (Auto) 7.5, Eos % (Auto) 5.2 H, Baso % (Auto) 0.6, Absolute Neuts (auto) 4.8, Absolute Lymphs (auto) 2.22, Nucleated RBC % 0 01/20/22 06:10: Sodium 140, Potassium 3.8, Chloride 105, Carbon Dioxide 35.0 H, Anion Gap 0 L, BUN 23 H, Creatinine 0.89, Estim Creat Clear Calc 56.71, Est GFR (MDRD) Af Amer 81, Est GFR (MDRD) Non-Af 67, BUN/Creatinine Ratio 25.7 H, Glucose 97, Calcium 8.6, Magnesium 1.9, Total Bilirubin 0.30, AST 20, ALT 27, Alkaline Phosphatase 165 H, Total Protein 6.0 L, Albumin 2.6 L, Globulin 3.4, Albumin/Globulin Ratio 0.8 L, Triglycerides 157, Cholesterol 131, LDL Cholesterol 68, VLDL Cholesterol 31, HDL Cholesterol 32 L Cardiology Labs/Tests 01/20/22 06:10: WBC 8.1, RBC 3.79 L, Hgb 12.0, Hct 38.1, MCV 100.5 H, MCH 31.7, MCHC 31.5 L, Plt Count 259, MPV 9.3, Immature Gran % (Auto) 0.600, Neut % (Auto) 58.8, Lymph % (Auto) 27.3, [place] % (Auto) 7.5, Eos % (Auto) 5.2 H, Baso % (Auto) 0.6, Absolute Neuts (auto) 4.8, Nucleated RBC % 0 01/20/22 06:10: Sodium 140, Potassium 3.8, Chloride 105, Carbon Dioxide 35.0 H, Anion Gap 0 L, BUN 23 H, Creatinine 0.89, Est GFR (MDRD) Af Amer 81, Est GFR (MDRD) Non-Af 67, BUN/Creatinine Ratio 25.7 H, Glucose 97, Calcium 8.6, Magnesium 1.9, Total Bilirubin 0.30, Triglycerides 157, Cholesterol 131, LDL Cholesterol 68, VLDL Cholesterol 31, HDL Cholesterol 32 L Rhythm: Sinus rhythm Physical Exam Const alert, oriented x3 and no apparent distress Orientation / Consciousness: awake HEENT normocephalic, head/scalp atraumatic and hearing grossly normal bilaterally Eyes PERRL, EOMs intact bilaterally and conjunctivae normal Neck supple and no JVD Resp clear to auscultation bilaterally Cardio regular rate, regular rhythm, S1 normal heart sound and S2 normal heart sound Heart Sounds: gallop S4 gallop, murmur systolic II/ soft mid left sternal border and abnormal sounds GI normal to inspection, nondistended, normoactive bowel sounds Extremity no pedal edema Skin no rashes or lesions noted Assessment & Plan Assessment/Plan (1) Sustained SVT: (2) Atherosclerotic heart disease of [place] coronary artery without angina pectoris: QUALIFIERS: [place] vs. transplanted heart: unspecified whether [place] or transplanted heart Qualified Code(s): I25.10 - Atherosclerotic heart disease of [place] coronary artery without angina pectoris (3) History of non-ST elevation myocardial infarction (NSTEMI): (4) Ischemic cardiomyopathy: (5) Hyperlipidemia: QUALIFIERS: Hyperlipidemia type: unspecified Qualified Code(s): E78.5 - Hyperlipidemia, unspecified PLAN: 1. SVT The patient had recurrence of her SVT. She was treated with rate control therapy and antiarrhythmic therapy with IV amiodarone. She regained sinus rhythm. It appears the plan was to eventually transition her to a combination of rate control and oral antiarrhythmic therapy with amiodarone. 2. CAD Patient has a history of CAD which was previously thought to be nonobstructive and did not require PCI. Based upon the patient's symptoms and objective findings the patient has been recommended for recurrent evaluation in the cardiac catheterization laboratory. Procedure risks of been discussed with her and she is agreeable to this approach. 3. Non-ST segment elevation SC The patient does have abnormal cardiac enzymes. The etiology has been a question as to whether or not this is progression of CAD versus a non-CAD event related to her tachycardia superimposed upon her previous cardiovascular conditions. At the present time she will continue medical therapy and proceed with further evaluation of her coronary status with diagnostic cardiac catheterization. 4. Ischemic mediated cardiomyopathy The patient has a history of left ventricular regional wall motion abnormalities. She has undergone previous evaluation for this. She was treated medically. During this hospitalization it was noted that her overall left ventricular systolic function has decreased and she has demonstrated what appears to be segmental right ventricular systolic dysfunction. She is continuing medical management. She is going to proceed with further evaluation with diagnostic cardiac catheterization as her noncardiovascular studies looking for evidence of thromboembolic disease has been unremarkable. 5. Hyperlipidemia Patient will continue risk factor evaluation care as deemed appropriate. 6. Pulmonary disease There was a concern as to whether or not the patient had an underlying pne umonia. It appears based upon review of the internal medicine notes this was thought to be not an active process and she is no longer on antibiotic therapy. Addt'l Comments This note was generated using a voice recognition system and there may be i ncorrect words, spelling or punctuation that were not noted when reviewing the office note prior to saving. Procedure Criteria Type of Procedure Procedure Type: Elective Elective Risks - COVID COVID Risk Discussion: The surgeon/proceduralist and patient have discussed in detail the risk of exposure to and/or potential harm posed by the COVID-19 virus with having a surgery/procedure at this time versus the risk of delaying the surgery/procedure. It is not possible to know either the risk of delaying the surgery or procedure or chance of getting an infection with perfect accuracy, but a joint decision was made between the patient and the surgeon/proceduralist to proceed at this time with the scheduled surgery/procedure as indicated on the consent form.
--- NOTE | 2022-01-20 07:55 | NURSING ---
Report called to laboratory engineer on pt status and prep. Spoke with RN from laboratory engineer
[2022-01-20] MEDS: Amiodarone 200 MG Tablet PO (08:00)
[2022-01-20] MEDS: Venlafaxine XR 150 MG Capsule PO (08:00)
[2022-01-20] MEDS: Lisinopril 2.5 MG Tablet PO (08:00)
[2022-01-20] MEDS: Aspirin E.C. 81 MG Tablet PO (08:00)
[2022-01-20] MEDS: Carvedilol 6.25 MG Tablet PO (08:02)
--- NOTE | 2022-01-20 08:06 | PN.HOSP_ITS ---
Objective Data Objective Data Vital Signs: Vital Signs Temp Pulse Resp BP Pulse Ox 97.4 F L 73 20 H 134/85 H 100 01/20/22 07:56 01/20/22 07:56 01/20/22 07:56 01/20/22 07:56 01/20/22 07:56 Oxygen Flow Rate (L/min) [3] 2 Oxygen Flow Rate (L/min) [1 ( 2 Initial Baseline)] Oxygen Flow Rate (L/min) 2 Oxygen Delivery Method [3] Nasal Cannula Oxygen Delivery Method [1 ( Nasal Cannula Initial Baseline)] Oxygen Delivery Method Nasal Cannula Weight: 87.8 kg Body Mass Index (BMI) 31.7 Intake & Output: Intake and Output for Last 24 Hours 01/18/22 01/19/22 01/20/22 23:59 23:59 23:59 Intake Total 1451.42 / 1451.70 982.96 / 982.96 250 / 250 Output Total 1450 / 1450 100 / 100 Balance 1.42 / 1.70 882.96 / 882.96 250 / 250 Lab / Micro Data Result Diagrams: 01/20/22 06:10 01/20/22 06:10 Labs: Laboratory Results - last 24 hr 01/20/22 06:10: WBC 8.1, RBC 3.79 L, Hgb 12.0, Hct 38.1, MCV 100.5 H, MCH 31.7, MCHC 31.5 L, RDW Std Deviation 48.7 H, RDW Coeff of Sariah 13.2, Plt Count 259, MPV 9.3, Immature Gran % (Auto) 0.600, Neut % (Auto) 58.8, Lymph % (Auto) 27.3, [place] % (Auto) 7.5, Eos % (Auto) 5.2 H, Baso % (Auto) 0.6, Absolute Neuts (auto) 4.8, Absolute Lymphs (auto) 2.22, Nucleated RBC % 0 01/20/22 06:10: Sodium 140, Potassium 3.8, Chloride 105, Carbon Dioxide 35.0 H, Anion Gap 0 L, BUN 23 H, Creatinine 0.89, Estim Creat Clear Calc 56.71, Est GFR (MDRD) Af Amer 81, Est GFR (MDRD) Non-Af 67, BUN/Creatinine Ratio 25.7 H, Glucose 97, Calcium 8.6, Magnesium 1.9, Total Bilirubin 0.30, AST 20, ALT 27, Alkaline Phosphatase 165 H, Total Protein 6.0 L, Albumin 2.6 L, Globulin 3.4, Albumin/Globulin Ratio 0.8 L, Triglycerides 157, Cholesterol 131, LDL Cholesterol 68, VLDL Cholesterol 31, HDL Cholesterol 32 L Physical Exam Narrative hysical exam: General: Alert, oriented x3, cooperative, no apparent distress, on 2L oxygen HEENT: Atraumatic Oral: Moist Mucosa Neck: Supple Lungs: Diminished to auscultation Cardiovascular: HS I+II, regular, no murmurs Abdomen: Bowel Sounds Present, Soft, Non Tender Extremities: No edema Assessment & Plan Assessment/Plan (1) Sustained SVT: PLAN: 1. Acute persistent SVT, now in normal sinus rhythm status post adenosine, IV Cardizem on admission Continue Coreg; did not tolerate metoprolol -had hypotension Check magnesium, cardiology following 2. Acute pneumonia ruled out from CTA of the chest Likely infiltrates are secondary to atelectasis as patient has no fever or leukocytosis Off antibiotics 3. Acute exacerbation of heart failure with reduced EF, EF 20%, ischemic cardiomyopathy Patient does not look fluid overloaded Continue with Lasix 20mg po bid Continue lisinopril, aspirin Cardiac cath planned in a.m. 4. Nicotine dependence, continue with replacement 5. Hypertension/hyperlipidemia/obesity, stable Continue on lisinopril 2.5 mg, Coreg Check lipid profile in am 6. Hypomagnesemia, replaced, recheck in am 7. Depression, continue on Effexor 8. DVT PPx- Lovenox SC
--- NOTE | 2022-01-20 09:17 | CASEMGMT ---
According to the [facility] website, the following are in-network tertiary facilities: [facility], [place], [facility], [place], [facility], [facility], [facility], [place], [facility], and . Alysia NGUYEN CM
--- NOTE | 2022-01-20 09:36 | CL.D_ITS ---
Patient Name: ECHO KERNS Study Date: 01/20/2022 Performing: Danny Best MD Ht: 65 inches 165 cm : 1955 Wt: 194.3 lbs 88 kg Age: 66 Gender: female BSA: 1.95 PROCEDURE(S) PERFORMED DC01-([id number])LHC/COR/LV CLINICAL PROFILE AND INDICATIONS Indications: Suspected CAD, LV Dysfunction Heart Failure: None Stress/Imaging Stress/Image Study Performed: No Angina Classification Anginal Classification w/in 2 Weeks: Anginal Equivalent Dyspnea CAD Presentations: Non-STEMI. CONCLUSIONS Elevated Left Ventricular End Diastolic Pressure Segmented LV systolic dysfunction- Moderate LVEF: by LV gram 25 % [place] Multivessel CAD RECOMMENDATIONS Risk factor modification Medical therapy Case discussed / reviewed with Dr. Buck of Interventional Cardiology DESCRIPTION OF PROCEDURE The patient arrived to the procedure lab. The risks and benefits of the procedure as well as a full d escription of our services here and current unavailability of surgical backup were fully explained to the patient and/or their significant other prior to the catheterization. The Timeout was completed, verifying the correct patient and procedure. The patient's procedural site was prepped and draped in the usual fashion. Local anesthetic was given subcutaneously to right radial region with Lidocaine 2% . Using a modified Seldinger technique, arterial access was obtained via the right radial artery, a 6 Fr sheath was inserted. Left Coronary Artery selective angiography was performed in multiple views u sing a 5 Fr. 4.0 Lysite catheter. Right Coronary Artery selective angiography was then performed in mu ltiple views using a 5 Fr. 4.0 Lysite catheter. Left Coronary Artery selective angiography was perform ed in multiple views using a 5 Fr. 4.0 Lysite catheter. Left Ventriculography was performed in VINCENT projection using a 5 Fr. Pigtail catheter. LV to AO pullback pressures were then recorded.The arterial sheath was pulled and a Starclose closure device was deployed for hemostasis CORONARY ANGIOGRAPHY DOMINANCE: Co- Dominant LEFT HEART ASSESSMENT Left Ventricular Ejection Fraction: by LV Gram 25 % Anterior Hypokinesis. Inferior Mid Hypokinesis. Apical Akinesis Elevated Left Ventricular End Diastolic Pressure LVEDP: 32 mmHg LEFT ANTERIOR DESCENDING ARTERY: Mild luminal irregularities PROX LAD: Mild calcification DISTAL LAD: smooth: 50 % Stenosis CIRCUMFLEX ARTERY: OM 1: Proximal - Mild luminal irregularities, Proximal - smooth: 25 % Stenosis RIGHT CORONARY ARTERY: Mild luminal irregularities AORTIC ROOT: Angiographically normal COMPLICATIONS No Complications PROCEDURE MEDICATIONS Fentanyl 50 mcg IV Versed 1 mg IV Fentanyl 50 mcg IV Oxygen: 2 L/min via nasal cannula Heparin given IA 01/20/2022 08:43:32 Verapamil 2.5mg, Ntg 100mcgs, 3000 units of Heparin given IA 01/20/2022 08:43:32 SUMMARY OF HEMODYNAMIC DATA Time AIR REST Art 132/62 (83) 08:36:05 AO 107/61 (81) SA 08:45:18 LV 123/11, 27 08:55:48 LV 125/9, 30 08:55:57 LV 121/12, 32 08:56:44 LV 122/9, 26 08:56:52 LVp 123/14, 30 08:56:57 AOp 122/62 (86) 08:57:04 AOp 1/0 (0) 08:58:26 Signed By Danny Best MD On 01/20/2022 09:35:26 Danny Best MD
[2022-01-20] MEDS: Gabapentin 300 MG Capsule PO ×2 (09:49→14:54)
[2022-01-20] MEDS: Furosemide 20 MG Tablet PO (09:49)
[2022-01-20] MEDS: LORazepam 1 MG Tablet PO (09:49)
[2022-01-20] MEDS: 0.9% Normal Saline 1,000 ML 50 ML IV (09:50)
--- NOTE | 2022-01-20 11:35 | CASEMGMT ---
Addendum entered by Cande Gunderson 01/20/22 15:20: Pt'gueraMarleny felix, updated on all and voices understanding. Marleny would like [facility] to call her if they are unable to reach pt and call to Dale at [facility] to update on referral and daughter request. Daughter aware of PCP appt and that school attendance secretary making appt with cardiology. Daughter voice no further questions/concerns/needs. Alysia NGUYEN CM Addendum entered by Cande Gunderson 01/20/22 14:08: Pt declines need for SNF or HHC at discharge but order placed for [facility] referral. Pt's phone number updated per her request. Pt provided with info for [facility]. Pt voices no further questions/concerns/needs. Alysia NGUYEN CM Original Note: Pt states her plan is still to go home at discharge. Pt does not feel like she will need SNF for rehab. CM to follow for therapy notes today and follow back up with pt regarding same. Pt is agreeable to [facility] for med management and pt to be provided with info on [facility] for resources. Alysia NGUYEN CM
[2022-01-20] MEDS: oxyCODONE 5 MG Tablet PO (11:40)
--- NOTE | 2022-01-20 14:09 | DCINST_ITS ---
Discharge Instructions Diet Discharge Diet: No restrictions Activity Discharge Activity: Return to Normal Activity Weight Bearing Status: Weight bearing as tolerated Dressing / Incision Call your doctor if you observe: Fever of 101 or Higher, Numbness or Tingling, Shortness of breath, Dizziness, Chest pain, Increased palpitations (irregular heartbeat) and Calf discomfort Follow Up Care Please Follow Up With: Primary care provider When: Within the next two weeks. Test Results: Test results from this visit will be discussed in further detail at your follow-up appointment, if applicable. Discharge Plan Admission Admit Date/Time: 01/17/22 07:45 Primary Reason for Your Visit: Heart palpitations Attending Provider: Jones Gregory Primary Care Provider: Sudhir Ochoa Consulting Providers: Thor Daniel ; Ken Banda ; Brooks Crespo ; Je Torres ; Yahaira Oden HEALTH TECHNICIAN HEARING ; Freda Nolasco Discharge Orders/Prescriptions Prescriptions: New carvedilol 6.25 mg Tablet 6.25 mg PO BID Qty: 60 RF: 0 amiodarone 200 mg Tablet 200 mg PO 0800,1999 Qty: 60 RF: 0 furosemide 20 mg Tablet 20 mg PO BIDLX Qty: 60 RF: 0 lisinopril 2.5 mg Tablet 2.5 mg PO BID Qty: 60 RF: 0 Continued aspirin 81 MG tablet 81 mg PO DAILY RF: 0 omeprazole 20 MG capsule 40 mg PO DAILY RF: 0 lorazepam 1 mg tablet 1 mg PO BID PRN PRN (Reason: Anxiety) RF: 0 atorvastatin [Lipitor] 40 mg tablet 40 mg PO QHS Qty: 30 RF: 0 meclizine 25 MG tablet 25 mg PO Q8H PRN PRN (Reason: Dizziness) Qty: 16 RF: 0 gabapentin 300 MG capsule 300 mg PO TID Qty: 90 RF: 0 ondansetron 4 mg tablet,disintegrating 4 mg PO Q8H PRN (Reason: nausea and vomiting) Qty: 10 RF: 0 venlafaxine 150 mg capsule,extended release 24hr 150 mg PO DAILY RF: 0 Discontinued carvedilol [Coreg] 3.125 mg tablet 3.125 mg PO BID Qty: 60 RF: 0 lisinopril 10 mg tablet 10 mg PO TID RF: 0 doxycycline monohydrate 100 mg capsule 100 mg PO BID RF: 0 Referrals / Follow Up: Annamarie Lopez NP, HEALTH TECHNICIAN HEARING-C [Nurse Practitioner] - 05/26/22 1:00 pm ([facility] will place you on a wait list. If they have a cancelation they will call.) Disposition Disposition (needs filled in before D/C Order can be placed): Home Health Service
--- NOTE | 2022-01-20 14:19 | DS.PCM_ITS ---
Documented by User: João RIBERA 01/20/22 14:29 Providers Date of Admission: 01/17/22 Date of Discharge: 01/20/22 Primary Care Physician: Dr. Sudhir Ochoa MD Consultations 01/17/22 02:49 Consult: Cardiology Routine Consulting Provider: Ken Banda Reason for Consult: SVT EMERGENT Consult: No MD Notified: Yes Date Notified: 01/17/22 Time Notified: 02:02 Method of Notification: per ED staff 01/17/22 07:15 Consult: Youtuber / Pulmonary Medicine Routine Consulting Provider: [facility] Reason for Consult: Hypotension EMERGENT Consult: Yes MD Notified: Yes Date Notified: 01/17/22 Time Notified: 07:15 Method of Notification: Verbal Reason For Visit: SVT Diagnosis Discharge Diagnosis (1) Sustained SVT: Status: Acute Code(s): I47.1 - Supraventricular tachycardia Medications at Discharge Home Medications aspirin 81 mg PO DAILY 07/21/18 omeprazole 40 mg PO DAILY 12/24/18 lorazepam 1 mg PO BID PRN PRN 06/15/21 atorvastatin [Lipitor] 40 mg PO QHS #30 tab 09/02/21 gabapentin 300 mg PO TID #90 cap 01/01/22 meclizine 25 mg PO Q8H PRN PRN #16 tab 01/01/22 ondansetron 4 mg PO Q8H PRN #10 tab 01/01/22 venlafaxine 150 mg PO DAILY 01/17/22 amiodarone 200 mg PO 0800,2000 #60 tab 01/20/22 carvedilol 6.25 mg PO BID #60 tab 01/20/22 furosemide 20 mg PO BIDLX #60 tab 01/20/22 lisinopril 2.5 mg PO BID #60 tab 01/20/22 Hospital Course Procedures Cardiac catheterization Summary of Care Provided Minutes Spent on Discharge: 20 Hospital Course: Patient is a 66-year-old female who was admitted to [facility] on 01/17/2022 for evaluation and management of heart palpitations. On admission, patient was found to be in sustained SVT as well as with low potassium. Patient was subsequently given adenosine and electrolytes were corrected. Cardiology evaluated the patient who recommended that patient undergo cardiac catheterization cardiac catheterization revealed moderate left ventricular systolic dysfunction, an elevated left ventricular end-diastolic pressure, an EF of 25% and [place] multivessel CAD. Recommendations per cardiology were medication management. Amiodarone 20 mg p.o. twice daily was added to patient's home medication regiment. Coreg increased to 6.25 p.o. twice daily. Lisinopril was decreased to 2.5 mg p.o. twice daily and Lasix were added to patient's home regiment 20 mg p.o. twice daily. All other home medications were continued. Patient was evaluated by PT/OT, who recommended th at patient go to SNF. Patient declined wanting to go to SNF, also declined home health care. Patient was advised of the risks associated with this, and acknowledged and accepted all. Patient is to follow-up with primary care provider and cardiology within the next 2 weeks. Patient seen by João Hirsch PA-C, under the supervision of Dr. Gregory. Physical Exam Narrative Patient is a 66-year-old female comfortably resting in bed and eating breakfast, alert and orient x3. Patient reports resolution of her chest pain and shortness of breath, denies development of any new symptoms overnight. Does not appear in acute distress. Const alert, oriented x3 and no apparent distress HEENT normocephalic, head/scalp atraumatic and hearing grossly normal bilaterally Eyes PERRL, EOMs intact bilaterally and conjunctivae normal Neck no lymphadenopathy, supple and no JVD Resp normal respiratory effort, no retractions and no use of accessory muscles Cardio regular rate, regular rhythm and no JVD GI normal to inspection, nondistended, normoactive bowel sounds and soft to palpation Extremity normal to inspection, full ROM and no clubbing, cyanosis or edema Skin no rashes or lesions noted, no wounds and skin turgor normal Neuro CN's II-XII intact bilaterally Psych affect normal Weight / BMI Weight Weight: 193 lb 9.054 oz Body Mass Index (BMI) 31.7 ABG / Lab / Microbiology Data Result Diagrams: 01/20/22 06:10 01/20/22 06:10 Laboratory: Laboratory Results - last 24 hr 01/20/22 06:10: WBC 8.1, RBC 3.79 L, Hgb 12.0, Hct 38.1, MCV 100.5 H, MCH 31.7, MCHC 31.5 L, RDW Std Deviation 48.7 H, RDW Coeff of Sariah 13.2, Plt Count 259, MPV 9.3, Immature Gran % (Auto) 0.600, Neut % (Auto) 58.8, Lymph % (Auto) 27.3, Tensas % (Auto) 7.5, Eos % (Auto) 5.2 H, Baso % (Auto) 0.6, Absolute Neuts (auto) 4.8, Absolute Lymphs (auto) 2.22, Nucleated RBC % 0 01/20/22 06:10: Sodium 140, Potassium 3.8, Chloride 105, Carbon Dioxide 35.0 H, Anion Gap 0 L, BUN 23 H, Creatinine 0.89, Estim Creat Clear Calc 56.71, Est GFR (MDRD) Af Amer 81, Est GFR (MDRD) Non-Af 67, BUN/Creatinine Ratio 25.7 H, Glucose 97, Calcium 8.6, Magnesium 1.9, Total Bilirubin 0.30, AST 20, ALT 27, Alkaline Phosphatase 165 H, Total Protein 6.0 L, Albumin 2.6 L, Globulin 3.4, Albumin/Globulin Ratio 0.8 L, Triglycerides 157, Cholesterol 131, LDL Cholesterol 68, VLDL Cholesterol 31, HDL Cholesterol 32 L D/C Instructions Discharge Diet: No restrictions Weight Bearing Status: Weight bearing as tolerated Call your doctor if you observe: Fever of 101 or Higher, Numbness or Tingling, Shortness of breath, Dizziness, Chest pain, Increased palpitations (irregular heartbeat) and Calf discomfort Please Follow Up With: Primary care provider When: Within the next two weeks. Meaningful Use Info Meaningful Use Diagnoses (Choose all that apply): None applicable Discharge Plan Admission Admit Date/Time: 01/17/22 07:45 Primary Reason for Your Visit: Heart palpitations Attending Provider: Jones Gregory Primary Care Provider: Sudhir Ochoa Consulting Providers: Thor Daniel ; Ken Banda ; Brooks Crespo ; Je Torres ; Yahaira Oden NP ; Freda Nolasco Discharge Orders/Prescriptions Prescriptions: New carvedilol 6.25 mg Tablet 6.25 mg PO BID Qty: 60 RF: 0 amiodarone 200 mg Tablet 200 mg PO 0800,2000 Qty: 60 RF: 0 furosemide 20 mg Tablet 20 mg PO BIDLX Qty: 60 RF: 0 lisinopril 2.5 mg Tablet 2.5 mg PO BID Qty: 60 RF: 0 Continued aspirin 81 MG tablet 81 mg PO DAILY RF: 0 omeprazole 20 MG capsule 40 mg PO DAILY RF: 0 lorazepam 1 mg tablet 1 mg PO BID PRN PRN (Reason: Anxiety) RF: 0 atorvastatin [Lipitor] 40 mg tablet 40 mg PO QHS Qty: 30 RF: 0 meclizine 25 MG tablet 25 mg PO Q8H PRN PRN (Reason: Dizziness) Qty: 16 RF: 0 gabapentin 300 MG capsule 300 mg PO TID Qty: 90 RF: 0 ondansetron 4 mg tablet,disintegrating 4 mg PO Q8H PRN (Reason: nausea and vomiting) Qty: 10 RF: 0 venlafaxine 150 mg capsule,extended release 24hr 150 mg PO DAILY RF: 0 Discontinued carvedilol [Coreg] 3.125 mg tablet 3.125 mg PO BID Qty: 60 RF: 0 lisinopril 10 mg tablet 10 mg PO TID RF: 0 doxycycline monohydrate 100 mg capsule 100 mg PO BID RF: 0 Referrals / Follow Up: João Durham GEOSPATIAL PROGRAM MANAGEMENT OFFICER, GEOSPATIAL PROGRAM MANAGEMENT OFFICER-C [Nurse Practitioner] - 02/11/22 1:30 pm Older,Annamarie GEOSPATIAL PROGRAM MANAGEMENT OFFICER, GEOSPATIAL PROGRAM MANAGEMENT OFFICER-C [Nurse Practitioner] - 05/26/22 1:00 pm ([facility] will place you on a wait list. If they have a cancelation they will call.) Disposition Disposition (needs filled in before D/C Order can be placed): Home Health Service Documented by User: Dr. Jones Gregory MD 01/20/22 15:17 Providers Date of Admission: 01/17/22 Reason For Visit: SVT Medications at Discharge Home Medications aspirin 81 mg PO DAILY 07/21/18 omeprazole 40 mg PO DAILY 12/24/18 lorazepam 1 mg PO BID PRN PRN 06/15/21 atorvastatin [Lipitor] 40 mg PO QHS #30 tab 09/02/21 gabapentin 300 mg PO TID #90 cap 01/01/22 meclizine 25 mg PO Q8H PRN PRN #16 tab 01/01/22 ondansetron 4 mg PO Q8H PRN #10 tab 01/01/22 venlafaxine 150 mg PO DAILY 01/17/22 amiodarone 200 mg PO 0800,2000 #60 tab 01/20/22 carvedilol 6.25 mg PO BID #60 tab 01/20/22 furosemide 20 mg PO BIDLX #60 tab 01/20/22 lisinopril 2.5 mg PO BID #60 tab 01/20/22 Hospital Course Operations None Summary of Care Provided Minutes Spent on Discharge: 45 Hospital Course: This patient was seen in conjunction with João Hirsch PA-C. I have independently interviewed and examined the patient and reviewed pertinent historical, laboratory, and other data. Please refer to João Hirsch PA-C's note for details of this patient's presentation, findings, and recommendations. I have reviewed João Hirsch PA-C's note and concur with documented findings. In brief, patient is a 66-year-old lady admitted with SVT with hypotension. Admitted to monitored bed with consultation placed to cardiology. As part of patient's management patient underwent left heart catheterization no angiographically significant coronary artery disease found. Patient was Found to have decreased LV systolic function. Cardiology recommended optimization of medical therapy Physical Examination: GENERAL: cooperative HEENT: Atraumatic; EYES; Anicteric, Normal Conjunctiva NECK; supple, normal thyroid, RESPIRATORY: Diminished to auscultation CARDIOVASCULAR: Regular S1 S2, GI: soft, normoactive bowel sounds, : No Renal angle tenderness; EXTREMITIES: No edema, no clubbing, MUSCULOSKELETAL: no muscle wasting NEURO: Awake; no lateralizing signs. SKIN: No Rash PSYCH; Flat affect Assessment: 1. PSVT 2. Mild CAD 3. Acute congestive heart failure with reduced ejection fraction EF 20% 4. Tobacco dependence 5. Essential hypertension 6. Dyslipidemia 7. Obesity 8. Hypomagnesemia 9. Depression anxiety 10. DVT prophylax Hospital course: As documented above Total time spent by myself and the advanced practice practitioner evaluating patient, reviewing labs, subsequent management decisions, discussion with mesha rothman as well as other providers 45 minutes ( 25 of which was spent by myself) ABG / Lab / Microbiology Data Result Diagrams: 01/20/22 06:10 01/20/22 06:10 Discharge Plan Admission Admit Date/Time: 01/17/22 07:45 Primary Reason for Your Visit: Heart palpitations Attending Provider: Jones Gregory Primary Care Provider: Sudhir Ochoa Consulting Providers: Thor Daniel ; Ken Banda ; Brooks Crespo ; Nuria Torres ; Yahaira Oden GEOSPATIAL PROGRAM MANAGEMENT OFFICER ; Freda Nolasco Discharge Orders/Prescriptions Prescriptions: New carvedilol 6.25 mg Tablet 6.25 mg PO BID Qty: 60 RF: 0 amiodarone 200 mg Tablet 200 mg PO 0800,1999 Qty: 60 RF: 0 furosemide 20 mg Tablet 20 mg PO BIDLX Qty: 60 RF: 0 lisinopril 2.5 mg Tablet 2.5 mg PO BID Qty: 60 RF: 0 Continued aspirin 81 MG tablet 81 mg PO DAILY RF: 0 omeprazole 20 MG capsule 40 mg PO DAILY RF: 0 lorazepam 1 mg tablet 1 mg PO BID PRN PRN (Reason: Anxiety) RF: 0 atorvastatin [Lipitor] 40 mg tablet 40 mg PO QHS Qty: 30 RF: 0 meclizine 25 MG tablet 25 mg PO Q8H PRN PRN (Reason: Dizziness) Qty: 16 RF: 0 gabapentin 300 MG capsule 300 mg PO TID Qty: 90 RF: 0 ondansetron 4 mg tablet,disintegrating 4 mg PO Q8H PRN (Reason: nausea and vomiting) Qty: 10 RF: 0 venlafaxine 150 mg capsule,extended release 24hr 150 mg PO DAILY RF: 0 Discontinued carvedilol [Coreg] 3.125 mg tablet 3.125 mg PO BID Qty: 60 RF: 0 lisinopril 10 mg tablet 10 mg PO TID RF: 0 doxycycline monohydrate 100 mg capsule 100 mg PO BID RF: 0 Referrals / Follow Up: João Durham NP, GEOSPATIAL PROGRAM MANAGEMENT OFFICER-C [Nurse Practitioner] - 02/11/22 1:30 pm Annamarie Lopez NP, GEOSPATIAL PROGRAM MANAGEMENT OFFICER-C [Nurse Practitioner] - 05/26/22 1:00 pm ([facility] will place you on a wait list. If they have a cancelation they will call.) Disposition Disposition (needs filled in before D/C Order can be placed): Home Health Service Charges/Coding Visit Charges Inpatient E&M: 02525 Disch Hosp Hospital Course Consultations Consultations: Consultations 01/17/22 02:49 Consult: Cardiology Routine Consulting Provider: Ken Banda Reason for Consult: SVT EMERGENT Consult: No MD Notified: Yes Date Notified: 01/17/22 Time Notified: 02:02 Method of Notification: per ED staff 01/17/22 07:15 Consult: Youtuber / Pulmonary Medicine Routine Consulting Provider: [facility] [place] Reason for Consult: Hypotension EMERGENT Consult: Yes Notified: Yes Date Notified: 01/17/22 Time Notified: 07:15 Method of Notification: Verbal Operations None
--- NOTE | 2022-01-20 16:12 | NURSING ---
Reviewed charting with Mihaela Ken RN
--- NOTE | 2022-01-21 09:44 | CCN.REFER ---
[facility] S/W REESE WHOM IS AGREEABLE TO [facility]. [facility] TO START SEEING PATIENT WEEKLY THE WEEK OF 02/10 FOR MEDICATION MANAGEMENT AND VS MONITORING.
--- NOTE | 2022-03-03 10:00 | CCN.REFER ---
AFTER MULTIPLE ATTEMPTS TO PATIENT AND DAUGHTER REESE - PER REESE THEY ARE REFUSING CCN. EDUCATION PROVIDED ON ADDED BENEFIT OF HAVING A HEALTH [employer]MATURE WINDER TO DECREASE ED VISITS - PATIENT AND DTR DECLINING STAFF COMING TO HOME. PHONE NUMBER LEFT.
== END 2022-01-20 15:51 | disposition home health service (06) | DRG 280 ==
LOC: ED 01:58 → PCU 02:33 → ICU 07:11 → PCU 01-18 14:22
PROVIDERS: Internal Medicine; Internal Medicine Interventional Cardiology; Admitting Provider Hospitalist; Emergency Provider Emergency Medicine; PCP Internal Medicine; Visit Provider Internal Medicine
DX: I47.1 Supraventricular tachycardia (principal); I21.4 Non-ST elevation (NSTEMI) myocardial infarction; I50.21 Acute systolic (congestive) heart failure; J98.11 Atelectasis; I11.0 Hypertensive heart disease with heart failure; I95.9 Hypotension, unspecified; J44.9 Chronic obstructive pulmonary disease, unspecified; I25.10 Atherosclerotic heart disease of native coronary artery without angina pectoris; F41.9 Anxiety disorder, unspecified; K21.9 Gastro-esophageal reflux disease without esophagitis; I25.2 Old myocardial infarction; I25.5 Ischemic cardiomyopathy; G47.33 Obstructive sleep apnea (adult) (pediatric); F17.210 Nicotine dependence, cigarettes, uncomplicated; E78.5 Hyperlipidemia, unspecified; E83.42 Hypomagnesemia; F32.A Depression, unspecified; Z87.442 Personal history of urinary calculi; E66.9 Obesity, unspecified; M81.0 Age-related osteoporosis without current pathological fracture; Z86.73 Personal history of transient ischemic attack (TIA), and cerebral infarction without residual deficits; Z79.82 Long term (current) use of aspirin; Z79.899 Other long term (current) drug therapy; R09.02 Hypoxemia; R01.1 Cardiac murmur, unspecified; Z68.31 Body mass index [BMI] 31.0-31.9, adult
CPT/HCPCS: 36415; 71045; 71275; 80048; 80053; 80061; 83735; 84443; 84484; 85025; 85379; 92960; 93005; 93306; 93458; 94002; 94667; 94668; 97110; 97162; 97166; 97530; 97535; 97802; 99152; 99153; 99251; 99285; J7030; J7050; Q9957; Q9967; A4216; C1769; C1894; C8929; G0463; J0153; J1940; J2405

== ENCOUNTER 2022-01-26 15:23 | Emergency (ER) | payer MEDICARE, MEDICAID, SELFPAY ==
[2022-01-26 15:24] VITALS: BP 161/109; PULSE 76; RESP 13; TEMP 36.7; O2SAT 98; BMI 28.3
[2022-01-26 15:27] VITALS: BP 161/109; PULSE 77; RESP 17; TEMP 36.6; O2SAT 99
--- NOTE | 2022-01-26 15:39 | EKG12_ITS ---
Test Reason : GENERAL ILLNESS Blood Pressure : / mmHG Vent. Rate : 070 BPM Atrial Rate : 070 BPM P-R Int : 132 ms QRS Dur : 104 ms QT Int : 434 ms P-R-T Axes : 056 031 057 degrees QTc Int : 468 ms Normal sinus rhythm Septal infarct , age undetermined Abnormal ECG Confirmed by CECI MARTINEZ, GEO ([id number]), editor at large MICAH SALMERON ([id number]) on 01/28/2022 7:15:12 AM Referred By: DION Confirmed By:GEO ORNELAS MD
--- NOTE | 2022-01-26 15:40 | EDS_ITS ---
HPI History of Present Illness Chief Complaint: Nausea/Vomiting Detail of Chief Complaint: Not feeling well for about a week Informant: patient Narrative Narrative: Patient presents to the emergency department complaint of not feeling well for about a week. Patient states that she was admitted with some sort of a heart condition a week ago. Patient since going home as not felt well. She describes feeling cold and also pain in her upper back. She denies chest pain or shortness of breath. She denies fever although she has had some chills and sweats. She has had nausea but no vomiting. She denies diarrhea. She denies significant abdominal pain. Denies urinary symptoms. Prior similar symptoms: No PFSH PFS Medical History (Updated 01/26/22 @ 19:[address] Keisha Williamson, DO) Anxiety and depression Atherosclerotic heart disease of [place] coronary artery without angina pectoris Calculus of left kidney COPD (chronic obstructive pulmonary disease) Depression Essential hypertension GERD (gastroesophageal reflux disease) History of non-ST elevation myocardial infarction (NSTEMI) (09/01/21) Hyperlipidemia Ischemic cardiomyopathy Kidney stones Myocardial infarct Obesity (BMI 30.0-34.9) Old anterior wall myocardial infarction Opiate dependence EVELYN (obstructive sleep apnea) Osteoporosis Personal history of transient ischemic attack (TIA), and cerebral infarction without residual deficits Smoker Sustained SVT TIA (transient ischemic attack) Tobacco abuse Home Medications aspirin 81 mg PO DAILY 07/21/18 [History Last Taken 07/05/20] omeprazole 40 mg PO DAILY 12/24/18 [History Last Taken 07/05/20] lorazepam 1 mg PO BID PRN PRN 06/15/21 [History Last Taken Unknown] atorvastatin [Lipitor] 40 mg PO QHS #30 tab 09/02/21 [Rx Last Taken Unknown] gabapentin 300 mg PO TID #90 cap 01/01/22 [Rx Last Taken Unknown] meclizine 25 mg PO Q8H PRN PRN #16 tab 01/01/22 [Rx Last Taken Unknown] ondansetron 4 mg PO Q8H PRN #10 tab 01/01/22 [Rx Last Taken Unknown] venlafaxine 150 mg PO DAILY 01/17/22 [History Last Taken Unknown] amiodarone 200 mg PO 0800,1999 #60 tab 01/20/22 [Rx Last Taken Unknown] carvedilol 6.25 mg PO BID #60 tab 01/20/22 [Rx Last Taken Unknown] furosemide 20 mg PO BIDLX #60 tab 01/20/22 [Rx Last Taken Unknown] lisinopril 2.5 mg PO BID #60 tab 01/20/22 [Rx Last Taken Unknown] gabapentin 300 mg PO TID #90 cap 01/26/22 [Rx Last Taken Unknown] levofloxacin 750 mg PO DAILY #6 tab 01/26/22 [Rx Last Taken Unknown] ondansetron 4 mg PO Q8H PRN PRN #10 tab 01/26/22 [Rx Last Taken Unknown] Allergy/AdvReac Type Severity Reaction Status Date / Time No Known Allergies Allergy Verified 01/26/22 15:27 Family History Mother Hypertension CAD (coronary artery disease) CVA (cerebral vascular accident) Myocardial infarction Grandmother Myocardial infarction Surgical History History of hysterectomy History of left heart catheterization (01/20/22) History of total hysterectomy Hx of appendectomy Social History Smoking Status: Current every day smoker tobacco type: cigarettes alcohol intake: never substance use type: does not use ROS ROS ED Constitutional Constitutional ED: Reports systems reviewed and no addt'l complaints, except as documented; Denies body ache(s), change in weight or chills Eyes Eyes: Denies acute decrease in peripheral vision, change in vision, double vision or loss of vision ENT ENT ED: Reports none; Denies ear pain, lip swelling, loss taste/smell, neck pain, otalgia or sore throat Cardiovascular Cardiovascular: Reports none; Denies abdominal pain, chest pain with activity, leg edema, lightheadedness, palpitations, rapid heart rate or syncope Respiratory/Chest Respiratory/Chest: Reports none; Denies change in mental status, dry cough, dyspnea, hemoptysis, shortness of breath at rest or shortness of breath with exertion Gastrointestinal Gastrointestinal: Reports none and nausea; Denies abdominal pain, change in stool character, diarrhea, hematemesis, hematochezia, melena, rectal bleeding or vomiting Genitourinary Genitourinary ED: Reports none; Denies abdominal discomfort, anuria, dysuria, genital pain or polyuria Musculoskeletal Musculoskeletal: Reports none, back pain and myalgias; Denies arthralgias, difficulty walking, extremity pain or muscle weakness Integumentary Reports none; Denies abscess or rash Neurologic Neurologic: Reports none and weakness; Denies abnormal gait, confusion, focal weakness, frequent falls, headache(s), loss of vision, numbness, paresthesias, radicular pain or vertigo Psychiatric Psychiatric: Reports systems reviewed and no addt'l complaints, except as doc umented and none; Denies behavioral changes, confusion, difficulty concentrating, hallucinations, suicidal ideation, tactile hallucinations or visual hallucinations Endocrine Endocrinology: Denies none, cold intolerance, excessive sweating, fatigue or heat intolerance Hematologic/Lymphatic Hematologic/Lymphatic: Reports none; Denies anemia, easy bleeding or easy bruising Allergic/Immunologic Allergic/Immunologic ED: Denies as per HPI, none, lip swelling, mouth swelling, throat swelling, tongue swelling or hives EXAM Physical Exam Const Vital Signs: 01/26/22 15:24 01/26/22 15:27 01/26/22 17:59 Temperature 98.1 F 97.8 F 98.0 F Temperature Source Oral Oral Temporal Pulse Rate 76 77 72 Respiratory Rate 13 17 14 Blood Pressure 161/109 H 161/109 H 163/88 H Blood Pressure Mean 126 126 113 Pulse Ox 98 99 98 Oxygen Delivery Method Room Air Room Air Room Air Positive well nourished and well developed General Appearance ED: well developed and NAD HEENT Reports TM's clear and moist mucous membranes normocephalic and atraumatic; Negative for trauma or tenderness Tympanic Membrane ED: Yes TM's clear Eyes PERRL and EOMs intact bilaterally General Eye ED: Negative for pale conjunctiva or scleral icterus Neck no lymphadenopathy, supple and no JVD General: Negative for tenderness Chest Wall inspection of chest normal and palpation of chest normal Chest: Negative for tenderness Resp normal respiratory effort and clear to auscultation bilaterally Effort and Inspection: Negative for respiratory distress or pain with movement Auscultation: Negative for rhonchi, wheezes or diminished lung sounds Cardio regular rate, regular rhythm, S1 normal heart sound, S2 normal heart sound and no murmurs Peripheral Pulses: pulses 2+ throughout GI normal to inspection, nondistended, normoactive bowel sounds, soft to palpation, non-tender, non-distended and no masses Back/Spine no CVA tenderness and no thoracic nor lumbar tenderness Back/Spine Narrative: Patient with some tenderness palpation over the upper thoracic paraspinal musculature that seems to reproduce her pain. Patient also with some pain over left trapezius. Extremity normal to inspection General Extremety ED: Negative for edema General Extremity: Negative for edema Neuro oriented x3, CN's II-XII intact bilaterally, no sensory deficits noted and gait normal Sensorium / Orientation: awake, alert, oriented to person, oriented to place and oriented to time Motor Exam: strength 5/5 throughout and strength abnormal Psych mental status grossly normal Skin no rashes or lesions noted and no wounds MDM MDM MDM Narrative Medical decision making narrative: IV line established on arrival. Patient was given Zofran for nausea. Lab work-up was unremarkable. Patient had an elevated D-dimer therefore CT of the chest was obtained to rule out PE this was negative for pulmonary emboli in the pulmonary arteries however there was a defect in the right lower lobar pulmonary vein suspicious for thrombus measuring 0.2 cm x 0.3 cm. Patient also noted to have findings of infiltrate in the left lower lobe and small right lower lobe infiltrate. Patient also had infiltrate posterior right middle lobe. These findings were discussed with recreational resort manager on-call Dr. Je Torres. He did asked that I start patient on Levaquin for 7 days and he did not feel that the thrombus in the pulmonary vein required anticoagulation. He would like patient to follow-up with their office. At this point patient hemodynamically stable and feel she can be safely discharged home. She did asked that I refill her gabapentin prescription as well. Patient will be given a prescription for Levaquin and Zofran as well as gabapentin. Patient advised to return if increasing shortness of breath or condition should worsen anyway. Lab Data Attestation: I reviewed the patient's lab results. Labs: Laboratory Results - last 24 hr 01/26/22 01/26/22 01/26/22 15:35 15:35 15:35 WBC 9.6 RBC 4.43 Hgb 14.0 Hct 42.3 MCV 95.5 MCH 31.6 MCHC 33.1 RDW Std Deviation 49.3 H RDW Coeff of Sariah 14.0 Plt Count 288 MPV 9.3 Immature Gran % (Auto) 0.300 Neut % (Auto) 68.7 Lymph % (Auto) 18.7 L Wilkinson % (Auto) 7.0 Eos % (Auto) 4.6 Baso % (Auto) 0.7 Absolute Neuts (auto) 6.6 Absolute Lymphs (auto) 1.80 Nucleated RBC % 0 D-Dimer Quant (PE/DVT) 1.14 H* Sodium 141 Potassium 3.5 Chloride 105 Carbon Dioxide 31.0 Anion Gap 5 BUN 19 H Creatinine 1.05 H Estim Creat Clear Calc 48.07 Est GFR (MDRD) Af Amer 68 Est GFR (MDRD) Non-Af 56 L BUN/Creatinine Ratio 18.1 Glucose 95 Calcium 9.4 Total Bilirubin 0.30 AST 15 ALT 21 Alkaline Phosphatase 184 H Troponin I High Sens 40 Total Protein 7.3 Albumin 3.4 Globulin 3.9 Albumin/Globulin Ratio 0.9 Urine Color Urine Clarity Urine pH Ur Specific [place] Urine Protein Urine Glucose (UA) Urine Ketones Urine Occult Blood Urine Nitrite Urine Bilirubin Urine Urobilinogen Ur Leukocyte Esterase Urine RBC Urine WBC Ur Squamous Epith Cells Urine Bacteria Hyaline Casts Urine Mucus 01/26/22 16:10 WBC RBC Hgb Hct MCV MCH MCHC RDW Std Deviation RDW Coeff of Sariah Plt Count MPV Immature Gran % (Auto) Neut % (Auto) Lymph % (Auto) Wilkinson % (Auto) Eos % (Auto) Baso % (Auto) Absolute Neuts (auto) Absolute Lymphs (auto) Nucleated RBC % D-Dimer Quant (PE/DVT) Sodium Potassium Chloride Carbon Dioxide Anion Gap BUN Creatinine Estim Creat Clear Calc Est GFR (MDRD) Af Amer Est GFR (MDRD) Non-Af BUN/Creatinine Ratio Glucose Calcium Total Bilirubin AST ALT Alkaline Phosphatase Troponin I High Sens Total Protein Albumin Globulin Albumin/Globulin Ratio Urine Color Yellow Urine Clarity Sl. Cloudy Urine pH 6.5 Ur Specific [place] 1.020 Urine Protein 15 H Urine Glucose (UA) Normal Urine Ketones Negative Urine Occult Blood 50 H Urine Nitrite Negative Urine Bilirubin Negative Urine Urobilinogen Normal Ur Leukocyte Esterase Negative Urine RBC 0-5 SEEN Urine WBC 0-5 SEEN Ur Squamous Epith Cells 0-5 SEEN Urine Bacteria 0 SEEN Hyaline Casts 0-5 SEEN Urine Mucus RARE Radiography Diagnostic Testing: Clinical Impression(s) from Imaging Studies Chest X-Ray 01/26/22 16:15 IMPRESSION: Interval resolution of mild CHF. Borderline cardiomegaly. Atherosclerotic vascular calcification of aortic arch with mildly tortuous descending aorta. Electronically Signed: Shamir Domingo MD at 16:29 EDT , Chest CTA 01/26/22 16:31 IMPRESSION: No evidence of the pulmonary arterial embolus. Filling defect within the right lower lobar pulmonary vein posterior basilar interlobar branch 0.2 x 0.3 cm suggestive of thrombus. Moderate mural thrombus within the distal aortic arch superolaterally on the left. Moderate left lower lobe and small right lower lobe infiltrates with underlying pulmonary fibrosis both lungs detailed above. 0.26 cm right middle lobe micronodule. Infiltrate posteriorly right middle lobe 1.32 cm. Electronically Signed: Shamir Domingo MD at 18:32 EDT , 1 view chest x-ray obtained interpreted by myself as chronic changes otherwise no acute disease process. Radiology felt there was interval resolution of mild CHF and borderline cardiomegaly. EKG Initial EKG: Attestation: I personally reviewed and interpreted this EKG as follows: Comments: Sinus rhythm with a ventricular rate of 70 bpm with old septal infarct. Discharge Plan Triage Chief Complaint: Nausea/Vomiting ED Provider: Keisha Williamson Dx/Rx/DC Orders Clinical Impression: Pneumonia, Nausea, Neuropathy Instructions: ED Neuropathy, Peripheral, ED Pneumonia (Adult) Prescriptions: New ondansetron [ondansetron] 4 MG tablet 4 mg PO Q8H PRN PRN (Reason: Nausea) Qty: 10 RF: 0 levofloxacin 750 mg tablet 750 mg PO DAILY Qty: 6 RF: 0 gabapentin 300 mg capsule 300 mg PO TID Qty: 90 RF: 0 No Action aspirin 81 MG tablet 81 mg PO DAILY RF: 0 omeprazole 20 MG capsule 40 mg PO DAILY RF: 0 lorazepam 1 mg tablet 1 mg PO BID PRN PRN (Reason: Anxiety) RF: 0 atorvastatin [Lipitor] 40 mg tablet 40 mg PO QHS Qty: 30 RF: 0 meclizine 25 MG tablet 25 mg PO Q8H PRN PRN (Reason: Dizziness) Qty: 16 RF: 0 gabapentin 300 MG capsule 300 mg PO TID Qty: 90 RF: 0 ondansetron 4 mg tablet,disintegrating 4 mg PO Q8H PRN (Reason: nausea and vomiting) Qty: 10 RF: 0 venlafaxine 150 mg capsule,extended release 24hr 150 mg PO DAILY RF: 0 carvedilol 6.25 mg Tablet 6.25 mg PO BID Qty: 60 RF: 0 amiodarone 200 mg Tablet 200 mg PO 0800,1999 Qty: 60 RF: 0 furosemide 20 mg Tablet 20 mg PO BIDLX Qty: 60 RF: 0 lisinopril 2.5 mg Tablet 2.5 mg PO BID Qty: 60 RF: 0 Primary Care Provider: Sudhir Ochoa Referrals: Je Torres DO [STAFF PHYSICIAN] - 5-7 Days Sudhir Ochoa MD [Primary Care Provider] - 3-5 Days Disposition Disposition: Home, Self Care
[2022-01-26 16:06] LABS: Absolute Neutrophil Count 6.6 X10^3/uL (2.0-7.7); Basophil# 0.07 X10^3/uL; Basophil% 0.7 % (0-1); Eosinophil# 0.44 X10^3/uL; Eosinophils% 4.6 % (0-5); Hematocrit 42.3 % (37-47); Lymphocyte % 18.7 % (19-41); Mean Corp Hgb Conc 33.1 g/dL (32-36); Mean Corpuscular Hgb 31.6 pg (27.0-32.0); Mean Corpuscular Volume 95.5 fL (81-99); Mean Platelet Vol. 9.3 fl (6.2-12.0); Monocyte# 0.67 X10^3/uL; NRBC Flagged by Analyzer 0 % (0-5); Neutrophil % 68.7 % (47-70); Platelet Count 288 K/mm3 (150-450); RBC Distribution Width SD 49.3 fl (35.1-43.9); Red Blood Count 4.43 M/mm3 (4.2-5.4); White Blood Count 9.6 K/mm3 (4.4-11.0)
--- NOTE | 2022-01-26 16:15 | RAD_ITS ---
STUDY: X-RAY CHEST REASON FOR EXAM: Female, 66 years old. weakness TECHNIQUE: Single frontal view COMPARISON: 01/17/2022 6:18 AM FINDINGS: Previously visualized mild central vascular congestion has resolved. The lungs are clear and expanded. There is no demonstrated pleural abnormality. Borderline cardiomegaly stable. Normal mediastinum and dru. Normal visualized pulmonary arteries. Atherosclerotic vascular calcification of the aortic arch with mildly tortuous descending aorta. Normal visualized thoracic spine. Normal visualized ribs, clavicles, and shoulders. There is no demonstrated abnormality of the visualized soft tissue structures of the upper abdomen. RAD/Chest 1 View (Portable) IMPRESSION: Interval resolution of mild CHF. Borderline cardiomegaly. Atherosclerotic vascular calcification of aortic arch with mildly tortuous descending aorta. Electronically Signed: Shamir Domingo MD at 16:29 EDT ,
[2022-01-26 16:17] LABS: Bacteria 0 SEEN /hpf (None Seen)
[2022-01-26 16:20] LABS: ALB/GLOB Ratio 0.9 RATIO (0.9-2.4); AST(SGOT) 15 U/L (15-37); Alanine Aminotransfer ALT/SGPT 21 U/L (13-56); Albumin, Serum 3.4 g/dL (3.2-5.0); Alkaline Phosphatase 184 U/L (45-117); Anion Gap 5 (5-15); BUN 19 mg/dL (7-18); BUN/Creat Ratio 18.1 RATIO (10-20); Calcium,Total 9.4 mg/dL (8.5-10.1); Chloride 105 mmol/L (98-107); Creatinine, Serum 1.05 mg/dL (0.55-1.02); EST Glomerular Filtration Rate 56 mL/min (>60); Est Glom Filt Rate - Afr Amer 68 mL/min (>60); Estimated Creatinine Clearance 48.07 ml/min; Globulin 3.9 g/dL (2.2-4.2); Glucose 95 mg/dL (74-106); Potassium 3.5 mmol/L (3.5-5.1); Protein, Total 7.3 g/dL (6.4-8.2); Sodium Level 141 mmol/L (136-145); Troponin-I HS 40 pg/mL (3.0-54.0)
[2022-01-26] MEDS: 0.9% Normal Saline 1,000 ML 150 ML IV (16:20)
[2022-01-26] MEDS: Ondansetron 4 MG/2 ML Vial IV (16:20)
[2022-01-26 16:21] LABS: D-Dimer Quantitative (DVT/PE) 1.14 FEU/ug/m (0.27-0.49)
--- NOTE | 2022-01-26 16:31 | CT_ITS ---
STUDY: CTA CHEST REASON FOR EXAM: Female, 66 years old. elevated d-dimer RADIATION DOSAGE (If Supplied By Facility): CTDIvol = ( 14.48 ) mGy, DLP = ( 513.17 ) mGycm TECHNIQUE: The examination was performed with the intravenous administration of IV 100mL [id number]-370. Post-processing of the angiographic images was performed, with multiplanar reformation and 3D reconstruction. Individualized dose optimization techniques were used for this CT. COMPARISON: None. FINDINGS: Normal enhancement of the main pulmonary artery and right and left pulmonary arteries. Normal enhancement of the bilateral peripheral pulmonary arteries. There is no demonstrated pulmonary embolism. Within the right lower lobar pulmonary vein on series 2 image 88 there is a filling defect visualized. This measures 0.2 cm in transverse by 0.3 cm in AP dimension suggestive of thrombus. Normal thoracic aorta and visualized great vessels. There is no demonstrated aortic dissection. There is moderate atherosclerotic vascular calcification of the aortic arch. There is moderate the mural thrombus within the distal aortic arch superiolaterally on the left. Normal heart and pericardium. Normal mediastinum. Normal hilar regions. Normal visualized trachea and bronchi. The lungs are well expanded. There is mild fibrosis peripherally in the right middle lobe and lingula. Right middle lobe series 2 image 144 micronodule 0.26 cm. Infiltrate posteriorly within the right middle lobe series 2 image 140 measures 1.32 cm transverse. There is moderate fibrosis seen in the posterior basilar segments bilaterally. There is a 3 cm pneumatocele seen within the lingula. There is moderate left lower lobe and small right lower lobe infiltrate within the basilar segment. Normal pleura. Normal chest wall structures. Normal osseous structures. Normal visualized upper abdomen. CT/CTA Chest W/WO Contrast IMPRESSION: No evidence of the pulmonary arterial embolus. Filling defect within the right lower lobar pulmonary vein posterior basilar interlobar branch 0.2 x 0.3 cm suggestive of thrombus. Moderate mural thrombus within the distal aortic arch superolaterally on the left. Moderate left lower lobe and small right lower lobe infiltrates with underlying pulmonary fibrosis both lungs detailed above. 0.26 cm right middle lobe micronodule. Infiltrate posteriorly right middle lobe 1.32 cm. Electronically Signed: Shamir Domingo MD at 18:32 EDT ,
[2022-01-26 16:35] LABS: Color, Urine Yellow (Yellow); Glucose, Dipstick Normal (Normal); Ketone-Dipstick Negative (Negative); Leukocyte Esterase-Dipstick Negative /ul (Negative); Nitrite-Dipstick Negative (Negative); Occult Blood-Urine 50 /ul (Negative); Protein-Dipstick 15 mg/dl (Negative); Urine Bilirubin Dipstick Negative (Negative); Urine Clarity Sl. Cloudy (Clear); Urine Urobilinogen Normal (Normal); Urine pH 6.5 (5.0 - 8.0)
[2022-01-26 16:53] LABS: Hyaline Cast 0-5 SEEN /lpf (0-5); Squamous Epithelial Cells - UA 0-5 SEEN /hpf (5-10)
[2022-01-26 16:54] LABS: Mucous, Urine RARE /hpf (<or=2+); Red Blood Cells-Urine 0-5 SEEN /hpf (0-5); White Blood Cells 0-5 SEEN /hpf (0-5)
[2022-01-26 17:59] VITALS: BP 163/88; PULSE 72; RESP 14; TEMP 36.7; O2SAT 98
[2022-01-26] MEDS: levoFLOXacin 750 MG Tablet PO (19:55)
[2022-01-26 20:07] VITALS: BP 148/68; PULSE 75; RESP 18; O2SAT 96
== END 2022-01-26 20:19 | disposition home or self-care (01) ==
PROVIDERS: Emergency Provider Emergency Medicine; PCP Internal Medicine; Visit Provider Emergency Medicine
DX: J18.9 Pneumonia, unspecified organism (principal); J44.9 Chronic obstructive pulmonary disease, unspecified; I11.0 Hypertensive heart disease with heart failure; I25.2 Old myocardial infarction; G62.9 Polyneuropathy, unspecified; R11.0 Nausea; E78.5 Hyperlipidemia, unspecified; F17.210 Nicotine dependence, cigarettes, uncomplicated; E66.9 Obesity, unspecified; K21.9 Gastro-esophageal reflux disease without esophagitis; M81.0 Age-related osteoporosis without current pathological fracture; F32.A Depression, unspecified; F41.9 Anxiety disorder, unspecified; Z79.82 Long term (current) use of aspirin; Z79.899 Other long term (current) drug therapy; Z86.73 Personal history of transient ischemic attack (TIA), and cerebral infarction without residual deficits
CPT/HCPCS: 71045; 71275; 80053; 81001; 84484; 85025; 85379; 87428; 93005; 96361; 96374; 99285; J7030; Q9967; A4216; J2405

== ENCOUNTER 2022-02-26 12:16 | Emergency (ER) | payer MEDICARE, MEDICAID, SELFPAY ==
[2022-02-26 12:17] VITALS: BP 160/110; PULSE 80; RESP 14; TEMP 36.4; O2SAT 99; BMI 25.8
--- NOTE | 2022-02-26 13:27 | CT_ITS ---
STUDY: CT ABDOMEN AND PELVIS WITHOUT CONTRAST REASON FOR EXAM: Female, 66 years old. Abdominal pain RADIATION DOSAGE (If Supplied By Facility): CTDIvol = ( 15.63 ) mGy, DLP = ( 748.42 ) mGycm TECHNIQUE: Transaxial images were obtained from the dome of the diaphragm to the symphysis pubis without oral contrast, and without intravenous contrast. Sagittal and coronal images were reconstructed. Individualized dose optimization techniques were used for this CT. COMPARISON: None. FINDINGS: The visualized lung bases are unremarkable. Small pericardial effusion. Normal liver. Normal gallbladder and extrahepatic biliary system. Normal spleen. Normal pancreas. Normal bilateral adrenal glands. Normal right kidney. 2 small nonobstructing stones in the left kidney. No hydronephrosis, ureteral stone, ureteral dilatation. Normal visualized stomach. Normal small intestine. There are multiple colonic diverticula consistent with diverticulosis. There is non-visualization of the appendix. 3.2 cm aneurysm of the distal abdominal aorta. Normal inferior vena cava. Normal retroperitoneum. Normal urinary bladder. Normal abdominal wall. Normal osseous structures. CT/Abdomen/Pelvis without Cont IMPRESSION: 1. 2 small nonobstructing left renal stones. 2. Small pericardial effusion. 3. 3.2 cm abdominal aortic aneurysm. 4. Sigmoid diverticulosis without diverticulitis Electronically Signed: Shelton Gandhi MD at 14:26 EDT ,
--- NOTE | 2022-02-26 13:27 | EKG12_ITS ---
Test Reason : GENERAL ILLNESS Blood Pressure : / mmHG Vent. Rate : 067 BPM Atrial Rate : 067 BPM P-R Int : 132 ms QRS Dur : 106 ms QT Int : 428 ms P-R-T Axes : 061 024 076 degrees QTc Int : 452 ms Normal sinus rhythm Septal infarct , age undetermined, cannot be excluded Abnormal ECG Confirmed by GASPER MARTINEZ, PATRICK ([id number]), editor managing newspaper MICAH SALMERON ([id number]) on 02/28/2022 11:32:53 AM Referred By: CASSIA Confirmed By:PATRICK JACKMAN MD
[2022-02-26 13:36] LABS: Absolute Lymphocyte Count 1.28 X10^3/uL (0.83-4.51); Absolute Neutrophil Count 3.3 X10^3/uL (2.0-7.7); Basophil# 0.06 X10^3/uL; Basophil% 1.1 % (0-1); Eosinophil# 0.36 X10^3/uL; Eosinophils% 6.6 % (0-5); Hematocrit 44.3 % (37-47); Hemoglobin 14.8 g/dL (12.0-15.0); Lymphocyte # 1.28 X10^3/ul (0.83-4.51); Lymphocyte % 23.5 % (19-41); Mean Corp Hgb Conc 33.4 g/dL (32-36); Mean Corpuscular Hgb 31.2 pg (27.0-32.0); Mean Corpuscular Volume 93.5 fL (81-99); Mean Platelet Vol. 9.8 fl (6.2-12.0); Monocyte# 0.43 X10^3/uL; Monocyte% 7.9 % (0-10); NRBC Flagged by Analyzer 0 % (0-5); Neutrophil % 60.7 % (47-70); Platelet Count 254 K/mm3 (150-450); RBC Distribution Width CV 12.9 % (11.6-14.6); RBC Distribution Width SD 44.2 fl (35.1-43.9); Red Blood Count 4.74 M/mm3 (4.2-5.4); White Blood Count 5.4 K/mm3 (4.4-11.0)
[2022-02-26 13:42] LABS: Bacteria 0 SEEN /hpf (None Seen); Mucous, Urine 0 SEEN /hpf (<or=2+); Red Blood Cells-Urine 0 SEEN /hpf (0-5)
[2022-02-26 13:43] LABS: Color, Urine Yellow (Yellow); Glucose, Dipstick Normal (Normal); Ketone-Dipstick Negative (Negative); Leukocyte Esterase-Dipstick 25 /ul (Negative); Nitrite-Dipstick Negative (Negative); Occult Blood-Urine 10 /ul (Negative); Protein-Dipstick 15 mg/dl (Negative); Specific Gravity, Urine 1.015 (1.002-1.030); Urine Bilirubin Dipstick Negative (Negative); Urine Clarity Sl. Cloudy (Clear); Urine Urobilinogen 1 mg/dl (Normal)
--- NOTE | 2022-02-26 13:50 | RAD_ITS ---
STUDY: X-RAY CHEST REASON FOR EXAM: Female, 66 years old. Back pain TECHNIQUE: Single AP portable view of the chest. COMPARISON: 01/27/2020 to FINDINGS: There is hyperinflation of the lungs consistent with chronic obstructive lung disease (COPD). There is no demonstrated pleural abnormality. There is moderate cardiac enlargement. Normal mediastinum and dru. Normal visualized pulmonary arteries. There is atherosclerotic tortuosity of the aortic arch and descending thoracic aorta. Normal visualized thoracic spine. Normal visualized ribs, clavicles, and shoulders. There is no demonstrated abnormality of the visualized soft tissue structures of the upper abdomen. RAD/Chest 1 View (Portable) IMPRESSION: Emphysema without pneumonia or atelectasis Electronically Signed: Shelton Gandhi MD at 14:22 EDT ,
[2022-02-26 13:52] LABS: Squamous Epithelial Cells - UA 0-5 SEEN /hpf (5-10); White Blood Cells 0-5 SEEN /hpf (0-5)
[2022-02-26] MEDS: Morphine 2 MG/ML Syringe IV (13:52)
[2022-02-26] MEDS: Ondansetron 4 MG/2 ML Vial IV (13:52)
[2022-02-26] MEDS: 0.9% Normal Saline 1,000 ML 1000 ML IV (13:52)
[2022-02-26 13:55] LABS: ALB/GLOB Ratio 0.9 RATIO (0.9-2.4); AST(SGOT) 12 U/L (15-37); Alanine Aminotransfer ALT/SGPT 13 U/L (13-56); Albumin, Serum 3.6 g/dL (3.2-5.0); Alkaline Phosphatase 171 U/L (45-117); Anion Gap 6 (5-15); BUN 15 mg/dL (7-18); BUN/Creat Ratio 15.1 RATIO (10-20); Calcium,Total 9.8 mg/dL (8.5-10.1); Chloride 107 mmol/L (98-107); Creatinine, Serum 0.99 mg/dL (0.55-1.02); EST Glomerular Filtration Rate 60 mL/min (>60); Est Glom Filt Rate - Afr Amer 72 mL/min (>60); Estimated Creatinine Clearance 53.04 ml/min; Globulin 3.9 g/dL (2.2-4.2); Glucose 105 mg/dL (74-106); Potassium 3.9 mmol/L (3.5-5.1); Protein, Total 7.5 g/dL (6.4-8.2); Sodium Level 141 mmol/L (136-145); Troponin-I HS 21 pg/mL (3.0-54.0)
[2022-02-26 14:16] VITALS: PULSE 81; RESP 18; O2SAT 95
--- NOTE | 2022-02-26 15:46 | EDS_ITS ---
HPI History of Present Illness Chief Complaint: General Illness Informant: patient Onset/Context/Timing Onset: Days (3-4) Context: Gradual Onset Timing: Continuous Quality: Squeezing Location: Abdomen, thoracic spine, cervical spine and the left cervical paraspinal mu Worsened by: Eating Relieved by: Nothing Narrative Narrative: Patient presents with nausea and back pain that has been getting worse over the last 3 to 4 days. Patient denies any vomiting. Patient states that there has been constant for the last 3 to 4 days. Patient describes her pain as squeezing. Patient states that pain is over the left upper back area. Patient states it is worse after eating. Patient denies any fevers or chills. Patient denies any shortness of breath. Patient does admit to some palpitations. Patient also admits to some generalized abdominal pain. [facility] Medical History Anxiety and depression Atherosclerotic heart disease of [place] coronary artery without angina pectoris Calculus of left kidney COPD (chronic obstructive pulmonary disease) Depression Essential hypertension GERD (gastroesophageal reflux disease) History of non-ST elevation myocardial infarction (NSTEMI) (09/01/21) Hyperlipidemia Ischemic cardiomyopathy Kidney stones Myocardial infarct Obesity (BMI 30.0-34.9) Old anterior wall myocardial infarction Opiate dependence EVELYN (obstructive sleep apnea) Osteoporosis Personal history of transient ischemic attack (TIA), and cerebral infarction without residual deficits Smoker Sustained SVT TIA (transient ischemic attack) Tobacco abuse Home Medications aspirin 81 mg tablet,delayed release 81 mg PO DAILY heart health 07/21/18 [History Last Taken 07/05/20] lorazepam 1 mg tablet 1 mg PO BID PRN PRN Anxiety 06/15/21 [History Last Taken Unknown] atorvastatin 40 mg tablet (Lipitor) 40 mg PO QHS #30 tabs 09/02/21 [Rx Last Taken Unknown] gabapentin 300 mg capsule 300 mg PO TID nerve pain #90 caps 01/01/22 [Rx Last Taken Unknown] venlafaxine 150 mg capsule,extended release 24 hr 150 mg PO DAILY mental health 01/17/22 [History Last Taken Unknown] amiodarone 200 mg tablet 200 mg PO 0800,2000 #60 tabs 01/20/22 [Rx Last Taken Unknown] carvedilol 6.25 mg tablet 6.25 mg PO BID #60 tabs 01/20/22 [Rx Last Taken Unknown] furosemide 20 mg tablet 20 mg PO BIDLX #60 tabs 01/20/22 [Rx Last Taken Unknown] lisinopril 2.5 mg tablet 2.5 mg PO BID #60 tabs 01/20/22 [Rx Last Taken Unknown] Allergy/AdvReac Type Severity Reaction Status Date / Time No Known Allergies Allergy Verified 02/26/22 12:18 Family History Mother Hypertension CAD (coronary artery disease) CVA (cerebral vascular accident) Myocardial infarction Grandmother Myocardial infarction Surgical History History of hysterectomy History of left heart catheterization (01/20/22) History of total hysterectomy Hx of appendectomy Social History Smoking Status: Current every day smoker tobacco type: cigarettes alcohol intake: never substance use type: does not use ROS ROS ED Constitutional Constitutional ED: Denies chills or fever(s) Eyes Eyes: Denies blurry vision or change in vision ENT ENT ED: Denies rhinorrhea or sore throat Cardiovascular Cardiovascular: Reports palpitations; Denies chest pain Respiratory/Chest Respiratory/Chest: Denies cough or dyspnea Gastrointestinal Gastrointestinal: Reports abdominal pain and nausea; Denies vomiting Genitourinary Genitourinary ED: Denies dysuria or hematuria Musculoskeletal Musculoskeletal: Reports back pain and neck pain Integumentary Denies abscess or rash Neurologic Neurologic: Reports headache(s); Denies weakness Allergic/Immunologic Allergic/Immunologic ED: Denies mouth swelling or urticaria EXAM Physical Exam Const Vital Signs: 02/26/22 12:17 02/26/22 12:24 02/26/22 12:24 Temperature 97.6 F L Temperature Source Temporal Pulse Rate 80 Respiratory Rate 14 Respiratory Effort Normal Non-Labored Respiratory Pattern Normal Normal Blood Pressure 160/110 H Blood Pressure Mean 126 Pulse Ox 99 Oxygen Delivery Method Room Air 02/26/22 14:16 Temperature Temperature Source Pulse Rate 81 Respiratory Rate 18 Respiratory Effort Respiratory Pattern Blood Pressure Blood Pressure Mean Pulse Ox 95 Oxygen Delivery Method Room Air Positive well nourished and well developed General Appearance ED: well developed and NAD HEENT Reports moist mucous membranes Neck supple and no JVD Resp normal respiratory effort and clear to auscultation bilaterally Cardio regular rate, regular rhythm and no murmurs GI normal to inspection, nondistended, normoactive bowel sounds and non-tender Palpation: soft Extremity normal to inspection General Extremety ED: Negative for edema or tenderness General Extremity: Negative for edema Neuro oriented x3, CN's II-XII intact bilaterally and no sensory deficits noted Sensorium / Orientation: alert Motor Exam: strength 5/5 throughout Psych mental status grossly normal Skin no rashes or lesions noted MDM MDM MDM Narrative Medical decision making narrative: EKG was obtained. On my interpretation, shows a normal sinus rhythm with a rate of 67. [place] interval, QRS interval, and QTc intervals are within normal limits. [place] is normal. There are no acute ST or T wave changes. This was unchanged compared to previous EKG dated 01/26/2022. CBC was within normal limits. Comprehensive metabolic profile was within normal limits. Urinalysis does not show any evidence of urinary tract infection or hematuria. High-sensitivity troponin was normal. CT scan of the abdomen pelvis was obtained. There is no acute intra-abdominal process noted. There are nonobstructing renal calculi. There is sigmoid diverticulosis but no diverticulitis. There is a small pericardial effusion noted. This was interpreted by the radiologist and reviewed by myself. Portable 1 view chest x-ray was obtained. On my interpretation, lung flores are hyperinflated. There is normal cardiac silhouette. Bony thorax is normal. There is no acute process noted. Radiologist also interpreted the x-ray and agrees. Patient is feeling better on reevaluation. Patient was advised of her findings. Patient was instructed to drink plenty of fluids. Patient was instructed to follow-up with her primary care physician in 5 to 7 days. Patient understood and was agreeable with the plan. All questions were answered. Lab Data Attestation: I reviewed the patient's lab results. Labs: Laboratory Results - last 24 hr 02/26/22 02/26/22 02/26/22 12:30 12:30 13:36 WBC 5.4 RBC 4.74 Hgb 14.8 Hct 44.3 MCV 93.5 MCH 31.2 MCHC 33.4 RDW Std Deviation 44.2 H RDW Coeff of Sariah 12.9 Plt Count 254 MPV 9.8 Immature Gran % (Auto) 0.200 Neut % (Auto) 60.7 Lymph % (Auto) 23.5 [place] % (Auto) 7.9 Eos % (Auto) 6.6 H Baso % (Auto) 1.1 H Absolute Neuts (auto) 3.3 Absolute Lymphs (auto) 1.28 Nucleated RBC % 0 Sodium 141 Potassium 3.9 Chloride 107 Carbon Dioxide 28.0 Anion Gap 6 BUN 15 Creatinine 0.99 Estim Creat Clear Calc 53.04 Est GFR (MDRD) Af Amer 72 Est GFR (MDRD) Non-Af 60 BUN/Creatinine Ratio 15.1 Glucose 105 Calcium 9.8 Total Bilirubin 0.50 AST 12 L ALT 13 Alkaline Phosphatase 171 H Troponin I High Sens 21 Total Protein 7.5 Albumin 3.6 Globulin 3.9 Albumin/Globulin Ratio 0.9 Urine Color Yellow Urine Clarity Sl. Cloudy Urine pH 6.0 Ur Specific [place] 1.015 Urine Protein 15 H Urine Glucose (UA) Normal Urine Ketones Negative Urine Occult Blood 10 H Urine Nitrite Negative Urine Bilirubin Negative Urine Urobilinogen 1 H Ur Leukocyte Esterase 25 H Urine RBC 0 SEEN Urine WBC 0-5 SEEN Ur Squamous Epith Cells 0-5 SEEN Urine Bacteria 0 SEEN Urine Mucus 0 SEEN Radiography Chest X-Ray - ED: 1 View, Read by ED Physician, Read by Radiologist, No Acute Disease and Chronic Changes Diagnostic Testing: Clinical Impression(s) from Imaging Studies Abdomen/Pelvis CT 02/26/22 13:27 IMPRESSION: 1. 2 small nonobstructing left renal stones. 2. Small pericardial effusion. 3. 3.2 cm abdominal aortic aneurysm. 4. Sigmoid diverticulosis without diverticulitis Electronically Signed: Shelton Gandhi MD at 14:26 EDT Reading Location ID and State: [id number] / [place] [employer] , Service support , Chest X-Ray 02/26/22 13:50 IMPRESSION: Emphysema without pneumonia or atelectasis Electronically Signed: Shelton Gandhi MD at 14:22 EDT Reading Location ID and State: [id number] / [place] [address] , Service support , EKG Initial EKG: Attestation: I personally reviewed and interpreted this EKG as follows: Interpretation: Sinus Rhythm (67) and No Acute Injury Pattern Prior EKG tracings: available for review Prior: Unchanged (01/26/2022) Discharge Plan Triage Chief Complaint: General Illness ED Provider: Adryan Aguilera Dx/Rx/DC Orders Clinical Impression: Viral illness Prescriptions: No Action aspirin 81 MG tablet 81 mg PO DAILY lorazepam 1 mg tablet 1 mg PO BID PRN PRN (Reason: Anxiety) Label Comments: take 1 tablet by mouth twice a day if needed atorvastatin [Lipitor] 40 mg tablet 40 mg PO QHS Qty: 30 0RF gabapentin 300 MG capsule 300 mg PO TID Qty: 90 0RF venlafaxine 150 mg capsule,extended release 24hr 150 mg PO DAILY carvedilol 6.25 mg Tablet 6.25 mg PO BID Qty: 60 0RF amiodarone 200 mg Tablet 200 mg PO 0800,2000 Qty: 60 0RF furosemide 20 mg Tablet 20 mg PO BIDLX Qty: 60 0RF lisinopril 2.5 mg Tablet 2.5 mg PO BID Qty: 60 0RF Primary Care Provider: Sudhir Ochoa Referrals: Sudhir Ochoa MD [Primary Care Provider] - 5-7 Days Disposition Disposition: Home, Self Care
[2022-02-26 16:04] VITALS: PULSE 76; RESP 18; O2SAT 99
== END 2022-02-26 16:05 | disposition home or self-care (01) ==
PROVIDERS: Emergency Provider Emergency Medicine; PCP Internal Medicine; Visit Provider Emergency Medicine
DX: B34.9 Viral infection, unspecified (principal); J44.9 Chronic obstructive pulmonary disease, unspecified; E78.5 Hyperlipidemia, unspecified; I10 Essential (primary) hypertension; I25.10 Atherosclerotic heart disease of native coronary artery without angina pectoris; I25.5 Ischemic cardiomyopathy; I25.2 Old myocardial infarction; E66.9 Obesity, unspecified; F32.A Depression, unspecified; F41.9 Anxiety disorder, unspecified; F17.210 Nicotine dependence, cigarettes, uncomplicated; Z79.82 Long term (current) use of aspirin; Z79.899 Other long term (current) drug therapy; Z86.73 Personal history of transient ischemic attack (TIA), and cerebral infarction without residual deficits
CPT/HCPCS: 71045; 74176; 80053; 81001; 84484; 85025; 93005; 96361; 96374; 96375; 99284; J7030; A4216; J2405

== ENCOUNTER 2022-06-04 18:41 | Emergency (ER) | payer MEDICARE, MEDICAID, SELFPAY ==
[2022-06-04 18:42] VITALS: BP 151/100; PULSE 76; RESP 14; TEMP 35.9; O2SAT 99; BMI 29.8
--- NOTE | 2022-06-04 18:52 | EKG12_ITS ---
Test Reason : CP/weakness Blood Pressure : / mmHG Vent. Rate : 077 BPM Atrial Rate : 077 BPM P-R Int : 132 ms QRS Dur : 096 ms QT Int : 430 ms P-R-T Axes : 065 046 062 degrees QTc Int : 486 ms Normal sinus rhythm Septal infarct , age undetermined Abnormal ECG Confirmed by SAMUEL MARTINEZ, TABATHA ([id number]), food expeditor MICAH SALMERON ([id number]) on 06/05/2022 12:58:48 P M Referred By: Jose Confirmed By:SANDRA BAKER MD
--- NOTE | 2022-06-04 18:53 | EDS_ITS ---
HPI History of Present Illness Chief Complaint: General Illness Detail of Chief Complaint: Generalized weakness and not feeling well since yesterday Informant: patient Narrative Narrative: Patient presents the emergency department stating that she just has not felt well since yesterday. She describes a generalized weakness and some intermittent chest. Patient complains of numbness and tingling in both arms. She has history of neuropathy. Patient states she is feeling stressed and anxious and she did not take her nerve pill today. Patient denies cough or sore throat or recent illness. She denies fevers. She denies urinary symptoms. Currently not having any chest pain. Prior similar symptoms: Yes PFSH [facility] Medical History Anxiety and depression Atherosclerotic heart disease of [place] coronary artery without angina pectoris Calculus of left kidney COPD (chronic obstructive pulmonary disease) Depression Essential hypertension GERD (gastroesophageal reflux disease) History of non-ST elevation myocardial infarction (NSTEMI) (09/01/21) Hyperlipidemia Ischemic cardiomyopathy Kidney stones Myocardial infarct Obesity (BMI 30.0-34.9) Old anterior wall myocardial infarction Opiate dependence EVELYN (obstructive sleep apnea) Osteoporosis Personal history of transient ischemic attack (TIA), and cerebral infarction without residual deficits Smoker Sustained SVT TIA (transient ischemic attack) Tobacco abuse Home Medications aspirin 81 mg tablet,delayed release 81 mg PO DAILY heart health 07/21/18 [History Last Taken 07/05/20] lorazepam 1 mg tablet 1 mg PO BID PRN PRN Anxiety 06/15/21 [History Last Taken Unknown] gabapentin 300 mg capsule 300 mg PO TID nerve pain #90 caps 01/01/22 [Rx Last Taken Unknown] venlafaxine 150 mg capsule,extended release 24 hr 150 mg PO DAILY mental health 01/17/22 [History Last Taken Unknown] ondansetron 4 mg disintegrating tablet 4 mg PO Q8H PRN PRN Nausea #10 tabs 02/26/22 [Rx Last Taken Unknown] amiodarone 200 mg tablet 200 mg PO 0800,2000 #180 tabs 06/04/22 [Rx Last Taken Unknown] atorvastatin 40 mg tablet (Lipitor) 40 mg PO QHS #90 tabs 06/04/22 [Rx Last Taken Unknown] carvedilol 6.25 mg tablet 6.25 mg PO BID #90 tabs 06/04/22 [Rx Last Taken Unknown] furosemide 20 mg tablet 20 mg PO BIDLX #180 tabs 06/04/22 [Rx Last Taken Unknown] lisinopril 2.5 mg tablet 2.5 mg PO BID #180 tabs 06/04/22 [Rx Last Taken Unknown] promethazine 25 mg tablet 25 mg PO Q6H PRN nausea and vomiting #10 tabs 06/04/22 [Rx Last Taken Unknown] Allergy/AdvReac Type Severity Reaction Status Date / Time No Known Allergies Allergy Verified 02/26/22 12:18 Family History Mother Hypertension CAD (coronary artery disease) CVA (cerebral vascular accident) Myocardial infarction Grandmother Myocardial infarction Surgical History History of hysterectomy History of left heart catheterization (01/20/22) History of total hysterectomy Hx of appendectomy Social History Smoking Status: Light Smoker (<10/day) alcohol intake: never substance use type: does not use ROS ROS ED Review of Systems ROS Unobtainable: other Constitutional Constitutional ED: Reports lethargy; Denies chills, fever(s), sweats or weight loss Eyes Eyes: Denies blurry vision, change in vision or diplopia ENT ENT ED: Denies rhinorrhea or sore throat Cardiovascular Cardiovascular: Reports chest pain; Denies orthopnea or racing heartbeat Respiratory/Chest Respiratory/Chest: Denies cough, dyspnea, dyspnea on exertion, orthopnea or sputum Gastrointestinal Gastrointestinal: Denies abdominal pain, diarrhea, nausea or vomiting Genitourinary Genitourinary ED: Denies dysuria, hematuria or urinary frequency Musculoskeletal Musculoskeletal: Denies arthralgias, back pain, myalgias or neck pain Integumentary Denies abscess, Abrasions or rash Neurologic Neurologic: Reports paresthesias and weakness; Denies headache(s) Psychiatric Psychiatric: Denies anxiety, depression or suicidal thoughts Endocrine Endocrinology: Denies polydipsia, polyphagia or polyuria Hematologic/Lymphatic Hematologic/Lymphatic: Denies easy bleeding, easy bruising or lymphadenopathy Allergic/Immunologic Allergic/Immunologic ED: Denies mouth swelling, tongue swelling or urticaria EXAM Physical Exam Const Vital Signs: 06/04/22 18:42 06/04/22 18:45 Temperature 96.6 F L Temperature Source Temporal Pulse Rate 76 Respiratory Rate 14 Respiratory Effort Normal Non-Labored Respiratory Pattern Normal Blood Pressure 151/100 H Blood Pressure Mean 117 Pulse Ox 99 Oxygen Delivery Method Room Air Positive well nourished and well developed General Appearance ED: well developed and NAD HEENT Reports TM's clear and moist mucous membranes normocephalic and atraumatic; Negative for trauma or tenderness Tympanic Membrane ED: Yes TM's clear Eyes PERRL and EOMs intact bilaterally General Eye ED: Negative for pale conjunctiva or scleral icterus Neck no lymphadenopathy, supple and no JVD General: Negative for tenderness Chest Wall inspection of chest normal and palpation of chest normal Chest: Negative for tenderness Resp normal respiratory effort and clear to auscultation bilaterally Effort and Inspection: Negative for respiratory distress or pain with movement Auscultation: Negative for rhonchi, wheezes or diminished lung sounds Cardio regular rate, regular rhythm, S1 normal heart sound, S2 normal heart sound and no murmurs Peripheral Pulses: pulses 2+ throughout GI normal to inspection, nondistended, normoactive bowel sounds, soft to palpation, non-tender, non-distended and no masses Back/Spine no CVA tenderness and no thoracic nor lumbar tenderness Extremity normal to inspection General Extremety ED: Negative for edema General Extremity: Negative for edema Neuro oriented x3, CN's II-XII intact bilaterally, no sensory deficits noted and gait normal Sensorium / Orientation: awake, alert, oriented to person, oriented to place and oriented to time Motor Exam: strength 5/5 throughout and strength abnormal Psych mental status grossly normal Skin no rashes or lesions noted and no wounds MDM MDM MDM Narrative Medical decision making narrative: Established on arrival. Patient placed on abstract maker. EKG unremarkable. Lab work unremarkable. Patient did not give a urine but she is not having any urinary symptoms and states she never had urinary tract infections. This point she was given a milligram of Ativan and symptomatically felt much better. This point etiology of her generalized weakness and not feeling well unclear. Patient advised to follow-up with her primary care physician 3 to 5 days. She is advised to return if condition should worsen anyway. I do suspect a component of anxiety. Lab Data Attestation: I reviewed the patient's lab results. Labs: Laboratory Results - last 24 hr 06/04/22 06/04/22 19:00 19:00 WBC 7.0 RBC 4.55 Hgb 14.5 Hct 43.0 MCV 94.5 MCH 31.9 MCHC 33.7 RDW Std Deviation 45.8 H RDW Coeff of Sariah 13.2 Plt Count 247 MPV 9.0 Immature Gran % (Auto) 0.300 Neut % (Auto) 64.7 Lymph % (Auto) 25.4 [place] % (Auto) 5.7 Eos % (Auto) 3.0 Baso % (Auto) 0.9 Absolute Neuts (auto) 4.5 Absolute Lymphs (auto) 1.78 Nucleated RBC % 0 Sodium 142 Potassium 3.7 Chloride 108 H Carbon Dioxide 29.0 Anion Gap 5 BUN 15 Creatinine 0.91 Estim Creat Clear Calc 57.70 Est GFR (MDRD) Af Amer 80 Est GFR (MDRD) Non-Af 66 BUN/Creatinine Ratio 16.5 Glucose 102 Calcium 9.4 Troponin I High Sens 24 EKG Initial EKG: Attestation: I personally reviewed and interpreted this EKG as follows: Comments: Sinus rhythm with a rate of 77 bpm with old septal infarct otherwise nothing acute. Discharge Plan Triage Chief Complaint: General Illness ED Provider: Keisha Williamson Dx/Rx/DC Orders Clinical Impression: Chest pain, Anxiety, Neuropathy Instructions: ED Anxiety Reaction, ED Chest Pain, Uncertain Cause, ED Neuropathy, Peripheral Prescriptions: New promethazine 25 mg tablet 25 mg PO Q6H PRN (Reason: nausea and vomiting) Qty: 10 0RF No Action aspirin 81 MG tablet 81 mg PO DAILY lorazepam 1 mg tablet 1 mg PO BID PRN PRN (Reason: Anxiety) Label Comments: take 1 tablet by mouth twice a day if needed gabapentin 300 MG capsule 300 mg PO TID Qty: 90 0RF venlafaxine 150 mg capsule,extended release 24hr 150 mg PO DAILY ondansetron [ondansetron] 4 MG tablet 4 mg PO Q8H PRN PRN (Reason: Nausea) Qty: 10 0RF amiodarone 200 mg tablet 200 mg PO 0800,2000 Qty: 180 3RF atorvastatin [Lipitor] 40 mg tablet 40 mg PO QHS Qty: 90 3RF carvedilol 6.25 mg tablet 6.25 mg PO BID Qty: 90 3RF lisinopril 2.5 mg tablet 2.5 mg PO BID Qty: 180 3RF furosemide 20 mg tablet 20 mg PO BIDLX Qty: 180 3RF Primary Care Provider: Sudhir Ochoa Referrals: Sudhir Ochoa MD [Primary Care Provider] - 3-5 Days Disposition Disposition: Home, Self Care
[2022-06-04] MEDS: LORazepam 2 MG/ML Syringe 1 MG IV (19:04)
[2022-06-04 19:05] LABS: Absolute Lymphocyte Count 1.78 X10^3/uL (0.83-4.51); Absolute Neutrophil Count 4.5 X10^3/uL (2.0-7.7); Basophil# 0.06 X10^3/uL; Basophil% 0.9 % (0-1); Eosinophil# 0.21 X10^3/uL; Hemoglobin 14.5 g/dL (12.0-15.0); Lymphocyte # 1.78 X10^3/ul (0.83-4.51); Lymphocyte % 25.4 % (19-41); Mean Corp Hgb Conc 33.7 g/dL (32-36); Mean Corpuscular Hgb 31.9 pg (27.0-32.0); Mean Corpuscular Volume 94.5 fL (81-99); Monocyte% 5.7 % (0-10); NRBC Flagged by Analyzer 0 % (0-5); Neutrophil # 4.53 X10^3/uL (2.7-7.7); Neutrophil % 64.7 % (47-70); Platelet Count 247 K/mm3 (150-450); RBC Distribution Width CV 13.2 % (11.6-14.6); RBC Distribution Width SD 45.8 fl (35.1-43.9); Red Blood Count 4.55 M/mm3 (4.2-5.4)
[2022-06-04 19:25] LABS: Anion Gap 5 (5-15); BUN 15 mg/dL (7-18); BUN/Creat Ratio 16.5 RATIO (10-20); Calcium,Total 9.4 mg/dL (8.5-10.1); Chloride 108 mmol/L (98-107); Creatinine, Serum 0.91 mg/dL (0.55-1.02); EST Glomerular Filtration Rate 66 mL/min (>60); Est Glom Filt Rate - Afr Amer 80 mL/min (>60); Glucose 102 mg/dL (74-106); Potassium 3.7 mmol/L (3.5-5.1); Sodium Level 142 mmol/L (136-145); Troponin-I HS 24 pg/mL (3.0-54.0)
[2022-06-04] MEDS: 0.9% Normal Saline 1,000 ML 150 ML IV (19:28)
[2022-06-04 20:31] VITALS: BP 157/96; PULSE 75; RESP 15; O2SAT 98
[2022-06-04 20:34] LABS: Mucous, Urine 0 SEEN /hpf (<or=2+); White Blood Cells 0 SEEN /hpf (0-5)
[2022-06-04 21:08] LABS: Color, Urine Yellow (Yellow); Glucose, Dipstick Normal (Normal); Ketone-Dipstick Negative (Negative); Leukocyte Esterase-Dipstick Negative /ul (Negative); Nitrite-Dipstick Negative (Negative); Occult Blood-Urine 25 /ul (Negative); Protein-Dipstick Negative (Negative); Specific Gravity, Urine 1.015 (1.002-1.030); Urine Bilirubin Dipstick Negative (Negative); Urine Clarity Clear (Clear); Urine Urobilinogen Normal (Normal)
[2022-06-04 21:28] LABS: Red Blood Cells-Urine 0-5 SEEN /hpf (0-5); Squamous Epithelial Cells - UA 0-5 SEEN /hpf (5-10)
[2022-06-04 21:29] LABS: Bacteria RARE /hpf (None Seen)
== END 2022-06-04 20:32 | disposition home or self-care (01) ==
PROVIDERS: Emergency Provider Emergency Medicine; PCP Internal Medicine; Visit Provider Emergency Medicine
DX: R07.9 Chest pain, unspecified (principal); J44.9 Chronic obstructive pulmonary disease, unspecified; F41.9 Anxiety disorder, unspecified; G62.9 Polyneuropathy, unspecified; I25.10 Atherosclerotic heart disease of native coronary artery without angina pectoris; I25.2 Old myocardial infarction; I10 Essential (primary) hypertension; E78.5 Hyperlipidemia, unspecified; E66.9 Obesity, unspecified; F17.200 Nicotine dependence, unspecified, uncomplicated; Z68.29 Body mass index [BMI] 29.0-29.9, adult; Z79.82 Long term (current) use of aspirin; Z79.899 Other long term (current) drug therapy; Z86.73 Personal history of transient ischemic attack (TIA), and cerebral infarction without residual deficits
CPT/HCPCS: 80048; 81001; 84484; 85025; 93005; 96361; 96374; 99285; J7030; A4216

== ENCOUNTER 2022-06-09 00:11 | Emergency (ER) | payer MEDICARE, MEDICAID, SELFPAY ==
[2022-06-09 00:12] VITALS: BP 182/89; PULSE 67; RESP 18; TEMP 36.1; O2SAT 95; BMI 30.2
--- NOTE | 2022-06-09 00:38 | RAD_ITS ---
EXAM: XR CHEST, 1 VIEW CLINICAL INDICATION: pain TECHNIQUE: Frontal view of the chest. This report was created using [employer] report generation technology. COMPARISON: Previous chest radiographs of 02/26/2022 and 01/26/2022. CT chest of 01/26/2022. FINDINGS: LUNGS AND PLEURAL SPACES: Patient remains rotated to the right. No pneumonia, pleural effusion or edema identified. Projected at the inferior left lung hilum is a 3.7 x 1.8 cm lobulated soft tissue opacity, not definitely seen on the prior chest radiographs. No corresponding abnormality was seen in this area on the prior CT of 01/26/2022. HEART: Heart size remains mildly enlarged with normal pulmonary vasculature. MEDIASTINUM: There is stable moderate elongation and calcification of the aortic arch. There is a minimal rounded soft tissue bulge at the left uncovertebral angle, consistent with hiatal hernia as noted on the prior CT. BONES/JOINTS: No acute osseous abnormality. SOFT TISSUES: Unremarkable. RAD/Chest 1 View (Portable) IMPRESSION: Interval development of a lobulated soft tissue opacity at the inferior right hilum, most likely due to superimposed vascular shadows; follow-up PA and lateral views of the chest are suggested when the patient is clinically stable, in order to confirm that this represents superimposed shadows rather than a developing nodule/mass. Otherwise stable. No pneumonia. Electronically Signed: Dimitrios Appiah MD at 1:16 EDT ,
--- NOTE | 2022-06-09 00:42 | EDS_ITS ---
HPI History of Present Illness Chief Complaint: General Illness Informant: patient Onset/Context/Timing Onset: Days Context: Gradual Onset Narrative Narrative: Patient presents with multiple complaints. She states that she still is having trouble keeping her anxiety under control. She has felt like she has been ill for the past several days and was actually seen here recently for similar. She presents via EMS tonight secondary to left shoulder pain as well as throat and central chest pain whenever she tries to eat. She states that her son looked at her throat today and said there were pus pockets in the back of her throat. She reports having nausea. She was at her son's house today did not have all of her medication with her. She states she did not get to take her Ativan or her gabapentin and is requesting those medications. [facility] Medical History Anxiety and depression Atherosclerotic heart disease of [place] coronary artery without angina pectoris Calculus of left kidney COPD (chronic obstructive pulmonary disease) Depression Essential hypertension GERD (gastroesophageal reflux disease) History of non-ST elevation myocardial infarction (NSTEMI) (09/01/21) Hyperlipidemia Ischemic cardiomyopathy Kidney stones Myocardial infarct Obesity (BMI 30.0-34.9) Old anterior wall myocardial infarction Opiate dependence EVELYN (obstructive sleep apnea) Osteoporosis Personal history of transient ischemic attack (TIA), and cerebral infarction without residual deficits Smoker Sustained SVT TIA (transient ischemic attack) Tobacco abuse Home Medications aspirin 81 mg tablet,delayed release 81 mg PO DAILY heart health 07/21/18 [History Last Taken 07/05/20] lorazepam 1 mg tablet 1 mg PO BID PRN PRN Anxiety 06/15/21 [History Last Taken Unknown] gabapentin 300 mg capsule 300 mg PO TID nerve pain #90 caps 01/01/22 [Rx Last Taken Unknown] amiodarone 200 mg tablet 200 mg PO 08,1999 #180 tabs 06/04/22 [Rx Last Taken Unknown] atorvastatin 40 mg tablet (Lipitor) 40 mg PO QHS #90 tabs 06/04/22 [Rx Last Taken Unknown] carvedilol 6.25 mg tablet 6.25 mg PO BID #90 tabs 06/04/22 [Rx Last Taken Unknown] furosemide 20 mg tablet 20 mg PO BIDLX #180 tabs 06/04/22 [Rx Last Taken Unknown] lisinopril 2.5 mg tablet 2.5 mg PO BID #180 tabs 06/04/22 [Rx Last Taken Unknown] promethazine 25 mg tablet 25 mg PO Q6H PRN nausea and vomiting #10 tabs 06/04/22 [Rx Last Taken Unknown] paroxetine HCl 20 mg tablet 20 mg PO DAILY 06/09/22 [History Last Taken Unknown] promethazine 25 mg tablet 25 mg PO TID PRN nausea and vomiting #20 tabs 06/09/22 [Rx Last Taken Unknown] Allergy/AdvReac Type Severity Reaction Status Date / Time No Known Allergies Allergy Verified 02/26/22 12:18 Family History Mother Hypertension CAD (coronary artery disease) CVA (cerebral vascular accident) Myocardial infarction Grandmother Myocardial infarction Surgical History History of hysterectomy History of left heart catheterization (01/20/22) History of total hysterectomy Hx of appendectomy Social History Smoking Status: Light Smoker (<10/day) alcohol intake: never substance use type: does not use ROS ROS ED Constitutional Constitutional ED: Denies chills or fever(s) Eyes Eyes: Denies change in vision or discharge from eye(s) ENT ENT ED: Reports sore throat; Denies discharge from eye(s) or rhinorrhea Cardiovascular Cardiovascular: Reports chest pain; Denies palpitations Respiratory/Chest Respiratory/Chest: Denies cough or dyspnea Gastrointestinal Gastrointestinal: Reports abdominal pain and nausea; Denies diarrhea or vomiting Genitourinary Genitourinary ED: Denies difficulty urinating or dysuria Musculoskeletal Musculoskeletal: Reports myalgias; Denies back pain or extremity pain Integumentary Denies Abrasions or rash Neurologic Neurologic: Reports paresthesias and weakness; Denies headache(s) Allergic/Immunologic Allergic/Immunologic ED: Denies lip swelling or urticaria EXAM Physical Exam Const Vital Signs: 06/09/22 00:12 06/09/22 00:15 06/09/22 01:03 Temperature 96.9 F L Temperature Source Temporal Pulse Rate 67 77 Respiratory Rate 18 18 Respiratory Effort Normal Respiratory Pattern Normal Blood Pressure 182/89 H Blood Pressure Mean 120 Pulse Ox 95 97 Oxygen Delivery Method Room Air Room Air Positive well nourished and well developed General Appearance ED: well developed HEENT Reports normocephalic and head/scalp atraumatic HEENT Narrative: 2+ tonsils bilaterally. Uvula midline. Patient speaking with a strong voice and tolerating secretions well. 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 EKG and chest x-ray obtained. Lab work ordered. Patient given the Ativan and gabapentin that she missed today along with a dose of Phenergan. Lab Data Attestation: I reviewed the patient's lab results. Labs: Laboratory Results - last 24 hr 06/09/22 06/09/22 00:52 00:52 WBC 7.7 RBC 4.43 Hgb 14.5 Hct 42.9 MCV 96.8 MCH 32.7 H MCHC 33.8 RDW Std Deviation 47.8 H RDW Coeff of Sariah 13.3 Plt Count 217 MPV 9.2 Immature Gran % (Auto) 0.400 Neut % (Auto) 48.6 Lymph % (Auto) 38.5 [place] % (Auto) 7.3 Eos % (Auto) 4.4 Baso % (Auto) 0.8 Absolute Neuts (auto) 3.8 Absolute Lymphs (auto) 2.97 Nucleated RBC % 0 Sodium 144 Potassium 3.7 Chloride 110 H Carbon Dioxide 29.0 Anion Gap 5 BUN 20 H Creatinine 1.03 H Estim Creat Clear Calc 50.98 Est GFR (MDRD) Af Amer 69 Est GFR (MDRD) Non-Af 57 L BUN/Creatinine Ratio 19.4 Glucose 104 Calcium 9.2 Troponin I High Sens 22 Radiography Chest X-Ray - ED: 1 View, Read by ED Physician and Chronic Changes Diagnostic Testing: Clinical Impression(s) from Imaging Studies Chest X-Ray 06/09/22 00:38 IMPRESSION: Interval development of a lobulated soft tissue opacity at the inferior right hilum, most likely due to superimposed vascular shadows; follow-up PA and lateral views of the chest are suggested when the patient is clinically stable, in order to confirm that this represents superimposed shadows rather than a developing nodule/mass. Otherwise stable. No pneumonia. Electronically Signed: Dimitrios Appiah MD at 1:16 EDT , Chest CT 06/09/22 01:22 IMPRESSION: No infrahilar mass/nodule identified; the abnormality noted on the prior portable chest radiograph is felt to be due to superimposed vascular shadows. Mild peribronchial cuffing indicating bronchial wall inflammation/bronchitis, improved. No pneumonia. Small hiatal hernia. 1.9 cm saccular infrarenal abdominal aortic aneurysm, without evidence for rupture. Electronically Signed: Dimitrios Appiah MD at 2:00 EDT , EKG Initial EKG: Attestation: I personally reviewed and interpreted this EKG as follows: Interpretation: Sinus Rhythm (Sinus at 66 with no acute ischemia.) Treatment and Re-Evaluation Narrative: CBC is unremarkable. Chemistry studies normal. Troponin is in normal range at 22. Chest x-ray per my interpretation shows chronic changes. Radiology is concerned about a possible infrahilar mass. Noncontrast CT of the chest is obtained and reveals no evidence of mass or nodule. It is felt the at the abnormality noted on chest x-ray represented a confluence of shadows. There is some evidence of bronchitis. Small hiatal hernia is noted. On repeat evaluation patient resting more comfortably. I will write her new prescription for Phenergan as she is currently out. We discussed viral syndrome and need for the infection to run its course. She voices understanding and agreement. Discharge Plan Triage Chief Complaint: General Illness ED Provider: Lo Chu Dx/Rx/DC Orders Clinical Impression: Viral syndrome, Nausea Instructions: ED Viral Syndrome (Adult) Prescriptions: New promethazine 25 mg tablet 25 mg PO TID PRN (Reason: nausea and vomiting) Qty: 20 0RF No Action aspirin 81 MG tablet 81 mg PO DAILY lorazepam 1 mg tablet 1 mg PO BID PRN PRN (Reason: Anxiety) Label Comments: take 1 tablet by mouth twice a day if needed gabapentin 300 MG capsule 300 mg PO TID Qty: 90 0RF promethazine 25 mg tablet 25 mg PO Q6H PRN (Reason: nausea and vomiting) Qty: 10 0RF paroxetine HCl 20 mg tablet 20 mg PO DAILY amiodarone 200 mg tablet 200 mg PO 0800,1999 Qty: 180 3RF atorvastatin [Lipitor] 40 mg tablet 40 mg PO QHS Qty: 90 3RF carvedilol 6.25 mg tablet 6.25 mg PO BID Qty: 90 3RF lisinopril 2.5 mg tablet 2.5 mg PO BID Qty: 180 3RF furosemide 20 mg tablet 20 mg PO BIDLX Qty: 180 3RF Primary Care Provider: Sudhir Ochoa Referrals: Sudhir Ochoa MD [Primary Care Provider] - 1 Week if not improving Disposition Disposition: Home, Self Care
[2022-06-09] MEDS: LORazepam 1 MG Tablet PO (00:50)
[2022-06-09] MEDS: proMETHazine 25 MG Tablet PO (00:50)
[2022-06-09] MEDS: Gabapentin 300 MG Capsule PO (00:50)
[2022-06-09] MEDS: 0.9% Normal Saline 1,000 ML 150 ML IV (00:53)
[2022-06-09 01:03] VITALS: PULSE 77; RESP 18; O2SAT 97
--- NOTE | 2022-06-09 01:22 | CT_ITS ---
EXAM: CT CHEST WITHOUT INTRAVENOUS CONTRAST CLINICAL INDICATION: abnormal cxr TECHNIQUE: Helically acquired images were obtained of the chest without intravenous contrast. This CT exam was performed using one or more of the following dose reduction techniques: automated exposure control, adjustment of the mA and/or kV according to patient size, and/or use of iterative reconstruction technique. This report was created using [employer] report generation technology. RADIATION DOSE: Total DLP: 584.08 mGy-cm. COMPARISON: Portable chest radiograph of this date. CTA chest of 01/26/2022. FINDINGS: LUNGS AND PLEURAL SPACES: Stable subpleural fibrotic changes within the anterior aspects of the upper lobes. Emphysematous bulla again noted within the left upper lobe adjacent to the left heart border. No evidence for right infrahilar mass. Subtle irregular subpleural densities noted posteriorly within the left lower lobe, unchanged, consistent with scarring. No pneumonia identified. Mild peribronchial cuffing is noted indicating bronchial wall inflammation, improved. HEART: Minimal pericardial effusion. Extensive coronary artery calcification is noted. MEDIASTINUM: Normal size mediastinal lymph nodes. No mediastinal adenopathy. Esophagus is unremarkable. Small/3 cm hiatal hernia THYROID: 11 mm lobulated hypointense left thyroid nodule, which requires no follow-up in a patient of this age group. BONES/JOINTS: Thoracic degenerative spurring. No acute osseous abnormality. No suspicious lytic or blastic abnormality. VASCULATURE: Calcific thoracic aorta which is normal in caliber. No intimal calcification displacement. There is a saccular bulge along the left side of the abdominal aorta just below the level of the left renal artery, consistent with a saccular aneurysm measuring 1.9 cm in diameter; no fat stranding or fluid noted about this aneurysm to indicate rupture. This saccular aneurysm is only partially included on the scan and which was incompletely seen on the prior CT of 01/26. INTRAPERITONEAL SPACE: Visualized portions of the liver, spleen, pancreas, adrenal glands and renal upper poles are unremarkable. No pneumoperitoneum is noted. CT/Chest without Contrast IMPRESSION: No infrahilar mass/nodule identified; the abnormality noted on the prior portable chest radiograph is felt to be due to superimposed vascular shadows. Mild peribronchial cuffing indicating bronchial wall inflammation/bronchitis, improved. No pneumonia. Small hiatal hernia. 1.9 cm saccular infrarenal abdominal aortic aneurysm, without evidence for rupture. Electronically Signed: Dimitrios Appiah MD at 2:00 EDT ,
[2022-06-09 01:27] LABS: Anion Gap 5 (5-15); BUN 20 mg/dL (7-18); BUN/Creat Ratio 19.4 RATIO (10-20); Calcium,Total 9.2 mg/dL (8.5-10.1); Chloride 110 mmol/L (98-107); Creatinine, Serum 1.03 mg/dL (0.55-1.02); EST Glomerular Filtration Rate 57 mL/min (>60); Est Glom Filt Rate - Afr Amer 69 mL/min (>60); Estimated Creatinine Clearance 50.98 ml/min; Glucose 104 mg/dL (74-106); Potassium 3.7 mmol/L (3.5-5.1); Sodium Level 144 mmol/L (136-145); Troponin-I HS 22 pg/mL (3.0-54.0)
[2022-06-09 01:44] LABS: Absolute Lymphocyte Count 2.97 X10^3/uL (0.83-4.51); Absolute Neutrophil Count 3.8 X10^3/uL (2.0-7.7); Basophil# 0.06 X10^3/uL; Basophil% 0.8 % (0-1); Eosinophil# 0.34 X10^3/uL; Eosinophils% 4.4 % (0-5); Hematocrit 42.9 % (37-47); Hemoglobin 14.5 g/dL (12.0-15.0); Lymphocyte # 2.97 X10^3/ul (0.83-4.51); Lymphocyte % 38.5 % (19-41); Mean Corp Hgb Conc 33.8 g/dL (32-36); Mean Corpuscular Hgb 32.7 pg (27.0-32.0); Mean Corpuscular Volume 96.8 fL (81-99); Mean Platelet Vol. 9.2 fl (6.2-12.0); Monocyte# 0.56 X10^3/uL; Monocyte% 7.3 % (0-10); NRBC Flagged by Analyzer 0 % (0-5); Neutrophil # 3.75 X10^3/uL (2.7-7.7); Neutrophil % 48.6 % (47-70); Platelet Count 217 K/mm3 (150-450); RBC Distribution Width CV 13.3 % (11.6-14.6); RBC Distribution Width SD 47.8 fl (35.1-43.9); Red Blood Count 4.43 M/mm3 (4.2-5.4); White Blood Count 7.7 K/mm3 (4.4-11.0)
[2022-06-09 02:27] VITALS: BP 152/89; PULSE 74; RESP 18; TEMP 36.8; O2SAT 98
== END 2022-06-09 06:50 | disposition home or self-care (01) ==
PROVIDERS: Emergency Provider Emergency Medicine; PCP Internal Medicine; Visit Provider Emergency Medicine
DX: B34.9 Viral infection, unspecified (principal); J44.9 Chronic obstructive pulmonary disease, unspecified; I25.10 Atherosclerotic heart disease of native coronary artery without angina pectoris; I25.5 Ischemic cardiomyopathy; I25.2 Old myocardial infarction; I10 Essential (primary) hypertension; E78.5 Hyperlipidemia, unspecified; E66.9 Obesity, unspecified; F41.9 Anxiety disorder, unspecified; F17.200 Nicotine dependence, unspecified, uncomplicated; Z68.30 Body mass index [BMI] 30.0-30.9, adult; Z79.82 Long term (current) use of aspirin; Z79.899 Other long term (current) drug therapy; Z82.49 Family history of ischemic heart disease and other diseases of the circulatory system; Z86.73 Personal history of transient ischemic attack (TIA), and cerebral infarction without residual deficits
CPT/HCPCS: 71045; 71250; 80048; 84484; 85025; 87811; 87880; 93005; 96360; 96361; 99285; J7030; A4216

== ENCOUNTER 2022-06-29 09:18 | Emergency (ER) | payer MEDICARE, MEDICAID, SELFPAY ==
[2022-06-29 09:18] VITALS: BP 138/69; PULSE 86; RESP 12; TEMP 36.6; O2SAT 98; BMI 29.9
--- NOTE | 2022-06-29 09:22 | EKG12_ITS ---
Test Reason : CP Blood Pressure : / mmHG Vent. Rate : 084 BPM Atrial Rate : 084 BPM P-R Int : 126 ms QRS Dur : 096 ms QT Int : 456 ms P-R-T Axes : 062 033 097 degrees QTc Int : 538 ms Normal sinus rhythm Septal infarct , age undetermined Prolonged QT Abnormal ECG Confirmed by CECI MARTINEZ, GEO ([id number]), tape editor MICAH SALMERON ([id number]) on 06/30/2022 9:50:25 AM Referred By: LENI Confirmed By:GEO ORNELAS MD
--- NOTE | 2022-06-29 09:30 | RAD_ITS ---
STUDY: X-RAY CHEST REASON FOR EXAM: Female, 66 years old. chest pain TECHNIQUE: Single AP portable view of the chest. COMPARISON: None. FINDINGS: The lungs are clear and expanded. There is no demonstrated pleural abnormality. There is moderate cardiac enlargement. Normal mediastinum and dru. Normal visualized pulmonary arteries. Normal visualized aortic arch and descending thoracic aorta. Normal visualized thoracic spine. Normal visualized ribs, clavicles, and shoulders. There is no demonstrated abnormality of the visualized soft tissue structures of the upper abdomen. RAD/Chest 1 View (Portable) IMPRESSION: No active disease. Electronically Signed: Shelton Gandhi MD at 9:49 EDT ,
--- NOTE | 2022-06-29 09:32 | ED.VIS.CHEST ---
HPI History of Present Illness Chief Complaint: Chest Pain Detail of Chief Complaint: Left-sided pain intermittent for 6 months. Informant: patient Onset/Context/Timing Onset: Month(s) Timing: Intermittent Quality: Positive for Aching Current Severity: Mild Maximum Severity: Mild Worsened By: Movement of Arm and - (Swallowing.) Relieved By: Nothing Associated Symptoms: Negative for Nausea, Vomiting, Diaphoresis, Dyspnea, Cough, Fever, Lightheadedness, Acid Reflux or Palpitations Narrative Narrative: Sent [id number] female history of hypertension high cholesterol. Anxiety. 6 months she has an intermittent left side pain. Left lateral rib cage left lateral flank. She has been seen for this worked up for this a specific cause. She has had negative cardiac work-ups and negative CAT scans of her chest. She denies any hemoptysis. Pain is not pleuritic. She said it comes on almost daily. Not associated with exertion. No dyspnea. Worse with swallowing. She denies any fever or chills. No hemoptysis. No history of DVT or PE. No recent travel, surgery or immobilization. No calf pain or swelling. Prior Similar Symptoms: Yes Recent Illness/Hospitalization: No CVD Risk Factors: Positive for Hypertension, Hypercholesterolemia and Smoking; Negative for Diabetes PE Risk Factors: Negative for Recent Travel/Surgery, Recent Immobilization, Prior DVT or PE, Cancer or OCP + Smoking + >/=35 TAD Risk Factors: Negative for Marfan's Syndrome [facility] Medical History Anxiety and depression Atherosclerotic heart disease of [place] coronary artery without angina pectoris Calculus of left kidney COPD (chronic obstructive pulmonary disease) Depression Essential hypertension GERD (gastroesophageal reflux disease) History of non-ST elevation myocardial infarction (NSTEMI) (09/01/21) Hyperlipidemia Ischemic cardiomyopathy Kidney stones Myocardial infarct Obesity (BMI 30.0-34.9) Old anterior wall myocardial infarction Opiate dependence EVELYN (obstructive sleep apnea) Osteoporosis Personal history of transient ischemic attack (TIA), and cerebral infarction without residual deficits Smoker Sustained SVT TIA (transient ischemic attack) Tobacco abuse Home Medications aspirin 81 mg tablet,delayed release 81 mg PO DAILY heart health 07/21/18 [History Last Taken 07/05/20] lorazepam 1 mg tablet 1 mg PO BID PRN PRN Anxiety 06/15/21 [History Last Taken Unknown] gabapentin 300 mg capsule 300 mg PO TID nerve pain #90 caps 01/01/22 [Rx Last Taken Unknown] amiodarone 200 mg tablet 200 mg PO 799,1999 #180 tabs 06/04/22 [Rx Last Taken Unknown] atorvastatin 40 mg tablet (Lipitor) 40 mg PO QHS #90 tabs 06/04/22 [Rx Last Taken Unknown] carvedilol 6.25 mg tablet 6.25 mg PO BID #90 tabs 06/04/22 [Rx Last Taken Unknown] furosemide 20 mg tablet 20 mg PO BIDLX #180 tabs 06/04/22 [Rx Last Taken Unknown] lisinopril 2.5 mg tablet 2.5 mg PO BID #180 tabs 06/04/22 [Rx Last Taken Unknown] promethazine 25 mg tablet 25 mg PO Q6H PRN nausea and vomiting #10 tabs 06/04/22 [Rx Last Taken Unknown] paroxetine HCl 20 mg tablet 20 mg PO DAILY 06/09/22 [History Last Taken Unknown] promethazine 25 mg tablet 25 mg PO TID PRN nausea and vomiting #20 tabs 06/09/22 [Rx Last Taken Unknown] Allergy/AdvReac Type Severity Reaction Status Date / Time No Known Allergies Allergy Verified 06/29/22 09:23 Family History Mother Hypertension CAD (coronary artery disease) CVA (cerebral vascular accident) Myocardial infarction Grandmother Myocardial infarction Surgical History History of hysterectomy History of left heart catheterization (01/20/22) History of total hysterectomy Hx of appendectomy Social History Smoking Status: Light Smoker (<10/day) alcohol intake: never substance use type: does not use ROS ROS ED ROS Narrative Pain. Review of Systems ROS Unobtainable: Denies due to encephalopathy Constitutional Constitutional ED: Denies chills or fever(s) Eyes Eyes: Reports none ENT ENT ED: Denies ear pain Cardiovascular Cardiovascular: Reports as per HPI and chest pain; Denies palpitations or racing heartbeat Respiratory/Chest Respiratory/Chest: Denies cough or dyspnea Gastrointestinal Gastrointestinal: Denies abdominal pain Genitourinary Genitourinary ED: Denies dysuria Musculoskeletal Musculoskeletal: Denies arthralgias Integumentary Denies abscess Neurologic Neurologic: Denies headache(s) Psychiatric Psychiatric: Denies anxiety Endocrine Endocrinology: Denies cold intolerance Hematologic/Lymphatic Hematologic/Lymphatic: Denies easy bleeding Allergic/Immunologic Allergic/Immunologic ED: Denies mouth swelling or tongue swelling EXAM Physical Exam Narrative Exam Narrative: 66-year-old female no acute distress. Vital signs are stable and afebrile. Pulse ox 98% on room air no signs hypoxia. H EENT exam unremarkable. Neck nontender. Lungs clear to auscultation. Heart regular rate and rhythm rate about 85 no murmur. Abdomen soft nontender. Moving all 4 extremities. Calves are nontender without edema or cords. Equal symmetrical radial pulses. Back nontender except mild tenderness left lateral rib cage. No crepitance or subcu air. No bruising. Neurologically she is awake and alert. Const Vital Signs: 06/29/22 09:18 06/29/22 09:22 06/29/22 10:17 Temperature 97.8 F Temperature Source Oral Pulse Rate 86 71 Respiratory Rate 12 15 Blood Pressure 138/69 H 136/80 H Blood Pressure Mean 92 98 Pulse Ox 98 97 Oxygen Delivery Method Room Air Room Air Room Air Positive well nourished and well developed; Negative for cachectic, contractures or unkempt General Appearance ED: well developed and NAD; Negative for unkempt, cachectic, contractures or pallor Nutritional Appearance: Negative for cachectic HEENT Reports moist mucous membranes normocephalic and atraumatic; Negative for trauma or tenderness Eyes PERRL and EOMs intact bilaterally General Eye ED: Negative for pale conjunctiva or scleral icterus Neck no lymphadenopathy, supple and no JVD General: Negative for tenderness Chest Wall inspection of chest normal; Negative for palpation of chest normal Chest Narrative: Mildly tender left ribs. No signs of trauma. No crepitance or subcu air. No bruising. Chest: tenderness Resp normal respiratory effort and clear to auscultation bilaterally Effort and Inspection: Negative for respiratory distress or pain with movement Auscultation: Negative for rales, rhonchi or wheezes Cardio regular rate, regular rhythm, S1 normal heart sound, S2 normal heart sound and no murmurs Rate: Negative for bradycardia or tachycardic Rhythm: Negative for abnormal rhythm Peripheral Pulses: pulses 2+ throughout GI normal to inspection, nondistended, normoactive bowel sounds, soft to palpation, non-tender, non-distended and no masses Auscultation: Negative for hyperactive bowel sounds Palpation: Negative for splenomegaly or mass Back/Spine no CVA tenderness and no thoracic nor lumbar tenderness General Back: Negative for CVA tenderness Cervical Spine: Negative for cervical spine tenderness Extremity normal to inspection General Extremety ED: Negative for edema General Extremity: Negative for edema Neuro oriented x3, CN's II-XII intact bilaterally and no sensory deficits noted Sensorium / Orientation: awake, alert, oriented to person, oriented to place and oriented to time; Negative for confused, lethargic or stuporous Motor Exam: strength 5/5 throughout Psych mental status grossly normal Appearance: Negative for unkempt Attitude: No agitated Mood & Affect: Negative for depressed, anxious or tearful Skin no rashes or lesions noted and no wounds General Skin Exam: Negative for jaundice or pallor Rashes: No rashes noted Trauma: Negative for abrasion or laceration Heart Score History: Slightly/Non-Suspicious ECG: Normal Age: >/= 65 years Risk Factors: 1 or 2 Risk Factors Troponin: </= Normal Limit Score: 3 MDM MDM MDM Narrative Medical decision making narrative: 66-year-old female with atypical left-sided pain. There is a reproducible component in the left rib cage it may may not be the same pain. She undergo cardiac work-up. I have a very low suspicion for this to be cardiac. She has no significant history or risk factors for PE or DVT. She has had prior negative CTA's of her chest. She has been treated with aspirin already. Repeat exam patient is doing well at 10:50 PM. Exam is unchanged. She and I went over all of her test results. I explained to her that I thought this was musculoskeletal in etiology and not related to her heart. She requested some Zofran for nausea and she will be discharged to home. Lab Data Attestation: I reviewed the patient's lab results. Lab results narrative: CBC normal. White count of 6. H&H 15 and 44. Electrolytes unremarkable gap of 4 normal being creatinine. Glucose 107. Troponin 21. Patient's been having this discomfort for 6 months I do not think she needs a second troponin. Labs: Laboratory Results - last 24 hr 06/29/22 06/29/22 09:22 09:22 WBC 6.9 RBC 4.68 Hgb 15.0 Hct 44.5 MCV 95.1 MCH 32.1 H MCHC 33.7 RDW Std Deviation 44.4 H RDW Coeff of Sariah 12.9 Plt Count 295 MPV 8.9 Immature Gran % (Auto) 0.400 Neut % (Auto) 49.3 Lymph % (Auto) 38.0 [place] % (Auto) 7.4 Eos % (Auto) 3.9 Baso % (Auto) 1.0 Absolute Neuts (auto) 3.4 Absolute Lymphs (auto) 2.61 Nucleated RBC % 0 Sodium 141 Potassium 4.2 Chloride 108 H Carbon Dioxide 29.0 Anion Gap 4 L BUN 15 Creatinine 0.92 Estim Creat Clear Calc 57.07 Est GFR (MDRD) Af Amer 79 Est GFR (MDRD) Non-Af 65 BUN/Creatinine Ratio 16.3 Glucose 107 H Calcium 9.5 Troponin I High Sens 21 Radiography Chest X-Ray - ED: 1 View, Read by ED Physician, Heart, Lungs, Mediastinum, Bony Structures, No Acute Disease and Chronic Changes Diagnostic Testing: Clinical Impression(s) from Imaging Studies Chest X-Ray 06/29/22 09:30 IMPRESSION: No active disease. Electronically Signed: Shelton Gandhi MD at 9:49 EDT , Chest x-ray, portable, single view, interpreted both by myself and radiologist shows no acute abnormality. Normal cardiac silhouette and mediastinum. Rhythm Strip Rhythm Strip: Sinus Rhythm Rate: 84 Ectopy: None EKG Initial EKG: Attestation: I personally reviewed and interpreted this EKG as follows: Interpretation: Sinus Rhythm and No Acute Injury Pattern Comments: Normal sinus rhythm rate of 84 no acute signs of NV or ischemia. Prior EKG tracings: available for review Prior: Unchanged Discharge Plan Triage Chief Complaint: Chest Pain ED Provider: Javon Reyes Dx/Rx/DC Orders Clinical Impression: Acute chest wall pain, History of hypertension Instructions: ED Chest Pain, Uncertain Cause Prescriptions: No Action aspirin 81 MG tablet 81 mg PO DAILY lorazepam 1 mg tablet 1 mg PO BID PRN PRN (Reason: Anxiety) Label Comments: take 1 tablet by mouth twice a day if needed gabapentin 300 MG capsule 300 mg PO TID Qty: 90 0RF promethazine 25 mg tablet 25 mg PO Q6H PRN (Reason: nausea and vomiting) Qty: 10 0RF paroxetine HCl 20 mg tablet 20 mg PO DAILY promethazine 25 mg tablet 25 mg PO TID PRN (Reason: nausea and vomiting) Qty: 20 0RF amiodarone 200 mg tablet 200 mg PO 0800,1999 Qty: 180 3RF atorvastatin [Lipitor] 40 mg tablet 40 mg PO QHS Qty: 90 3RF carvedilol 6.25 mg tablet 6.25 mg PO BID Qty: 90 3RF lisinopril 2.5 mg tablet 2.5 mg PO BID Qty: 180 3RF furosemide 20 mg tablet 20 mg PO BIDLX Qty: 180 3RF Primary Care Provider: Sudhir Ochoa Referrals: Sudhir Ochoa MD [Primary Care Provider] - 1 Week if not improving Activity Restrictions/Additional Instructions: Your labs, chest x-ray and EKG were all unremarkable and unchanged in the past. Your pain appears to be secondary to musculoskeletal pain. Motrin and Tylenol for pain. Disposition Disposition: Home, Self Care
[2022-06-29 09:34] LABS: Absolute Lymphocyte Count 2.61 X10^3/uL (0.83-4.51); Absolute Neutrophil Count 3.4 X10^3/uL (2.0-7.7); Basophil# 0.07 X10^3/uL; Eosinophil# 0.27 X10^3/uL; Eosinophils% 3.9 % (0-5); Hematocrit 44.5 % (37-47); Lymphocyte # 2.61 X10^3/ul (0.83-4.51); Mean Corp Hgb Conc 33.7 g/dL (32-36); Mean Corpuscular Hgb 32.1 pg (27.0-32.0); Mean Corpuscular Volume 95.1 fL (81-99); Mean Platelet Vol. 8.9 fl (6.2-12.0); Monocyte# 0.51 X10^3/uL; Monocyte% 7.4 % (0-10); NRBC Flagged by Analyzer 0 % (0-5); Neutrophil # 3.37 X10^3/uL (2.7-7.7); Neutrophil % 49.3 % (47-70); Platelet Count 295 K/mm3 (150-450); RBC Distribution Width CV 12.9 % (11.6-14.6); RBC Distribution Width SD 44.4 fl (35.1-43.9); Red Blood Count 4.68 M/mm3 (4.2-5.4); White Blood Count 6.9 K/mm3 (4.4-11.0)
[2022-06-29 09:48] LABS: Anion Gap 4 (5-15); BUN 15 mg/dL (7-18); BUN/Creat Ratio 16.3 RATIO (10-20); Calcium,Total 9.5 mg/dL (8.5-10.1); Chloride 108 mmol/L (98-107); Creatinine, Serum 0.92 mg/dL (0.55-1.02); EST Glomerular Filtration Rate 65 mL/min (>60); Est Glom Filt Rate - Afr Amer 79 mL/min (>60); Estimated Creatinine Clearance 57.07 ml/min; Glucose 107 mg/dL (74-106); Potassium 4.2 mmol/L (3.5-5.1); Sodium Level 141 mmol/L (136-145); Troponin-I HS (w/2H Reflex) 21 pg/mL (3.0-54.0)
[2022-06-29 10:17] VITALS: BP 136/80; PULSE 71; RESP 15; O2SAT 97
[2022-06-29] MEDS: Ondansetron 4 MG/2 ML Vial IV (11:12)
[2022-06-29 11:18] VITALS: BP 125/98; PULSE 74; O2SAT 99
[2022-06-29 11:28] LABS: Reflex Troponin-HS? (from REC) Y
== END 2022-06-29 11:19 | disposition home or self-care (01) ==
PROVIDERS: Emergency Provider Emergency Medicine; PCP Internal Medicine; Visit Provider Emergency Medicine
DX: R07.89 Other chest pain (principal); J44.9 Chronic obstructive pulmonary disease, unspecified; I25.10 Atherosclerotic heart disease of native coronary artery without angina pectoris; F17.200 Nicotine dependence, unspecified, uncomplicated; I10 Essential (primary) hypertension; F41.9 Anxiety disorder, unspecified; I25.5 Ischemic cardiomyopathy; I25.2 Old myocardial infarction; E78.00 Pure hypercholesterolemia, unspecified; E66.9 Obesity, unspecified; Z68.29 Body mass index [BMI] 29.0-29.9, adult; Z79.899 Other long term (current) drug therapy; Z86.73 Personal history of transient ischemic attack (TIA), and cerebral infarction without residual deficits
CPT/HCPCS: 71045; 80048; 84484; 85025; 93005; 96374; 99285; A4216; J2405

== ENCOUNTER 2022-08-02 20:20 | Emergency (ER) | payer MEDICARE, MEDICAID, SELFPAY ==
[2022-08-02 20:33] VITALS: BP 153/92; PULSE 88; RESP 18; TEMP 36.3; O2SAT 98; BMI 25.8
[2022-08-02 20:35] VITALS: BP 153/92; PULSE 88; RESP 18; TEMP 36.3; O2SAT 98
[2022-08-02 22:06] LABS: Absolute Lymphocyte Count 3.49 X10^3/uL (0.83-4.51); Absolute Neutrophil Count 3.1 X10^3/uL (2.0-7.7); Anion Gap 5 (5-15); BUN 14 mg/dL (7-18); BUN/Creat Ratio 14.4 RATIO (10-20); Basophil# 0.07 X10^3/uL; Basophil% 0.9 % (0-1); Calcium,Total 9.8 mg/dL (8.5-10.1); Chloride 105 mmol/L (98-107); Creatinine, Serum 0.97 mg/dL (0.55-1.02); EST Glomerular Filtration Rate 61 mL/min (>60); Eosinophil# 0.22 X10^3/uL; Est Glom Filt Rate - Afr Amer 74 mL/min (>60); Estimated Creatinine Clearance 54.13 ml/min; Glucose 93 mg/dL (74-106); Hematocrit 44.6 % (37-47); Hemoglobin 15.6 g/dL (12.0-15.0); Lymphocyte # 3.49 X10^3/ul (0.83-4.51); Mean Corpuscular Hgb 32.8 pg (27.0-32.0); Mean Corpuscular Volume 93.9 fL (81-99); Mean Platelet Vol. 9.1 fl (6.2-12.0); Monocyte% 6.7 % (0-10); NRBC Flagged by Analyzer 0 % (0-5); Neutrophil # 3.13 X10^3/uL (2.7-7.7); Neutrophil % 42.3 % (47-70); Platelet Count 317 K/mm3 (150-450); Potassium 3.5 mmol/L (3.5-5.1); RBC Distribution Width CV 12.4 % (11.6-14.6); Red Blood Count 4.75 M/mm3 (4.2-5.4); Sodium Level 139 mmol/L (136-145); White Blood Count 7.4 K/mm3 (4.4-11.0)
[2022-08-02 22:15] LABS: Bacteria 0 SEEN /hpf (None Seen); Red Blood Cells-Urine 0 SEEN /hpf (0-5)
[2022-08-02 22:16] LABS: Color, Urine Yellow (Yellow); Glucose, Dipstick Normal (Normal); Ketone-Dipstick 5 mg/dl (Negative); Leukocyte Esterase-Dipstick 25 /ul (Negative); Nitrite-Dipstick Negative (Negative); Occult Blood-Urine 10 /ul (Negative); Protein-Dipstick 30 mg/dl (Negative); Urine Clarity Clear (Clear); Urine Urobilinogen Normal (Normal)
[2022-08-02 22:19] VITALS: O2SAT 99
[2022-08-02 22:20] VITALS: BP 159/99; PULSE 79; RESP 22; O2SAT 98
[2022-08-02 22:30] LABS: Mucous, Urine 2+ /hpf (<or=2+); Squamous Epithelial Cells - UA 0-5 SEEN /hpf (5-10); Urine Bilirubin Dipstick 1 mg/dL (Negative); White Blood Cells 0-5 SEEN /hpf (0-5)
--- NOTE | 2022-08-02 22:54 | CT_ITS ---
STUDY: CT ABDOMEN AND PELVIS WITHOUT CONTRAST REASON FOR EXAM: Female, 66 years old. abd pain RADIATION DOSAGE (If Supplied By Facility): CTDIvol = ( 10.70 ) mGy, DLP = ( 531.90 ) mGycm TECHNIQUE: Transaxial images were obtained from the dome of the diaphragm to the symphysis pubis without oral contrast, and without intravenous contrast. Sagittal and coronal images were reconstructed. Individualized dose optimization techniques were used for this CT. COMPARISON: CT abdomen and pelvis February 26, 2022 FINDINGS: The visualized lung bases are unremarkable. The visualized portions of the heart are within normal limits. Normal liver. Normal gallbladder and extrahepatic biliary system. Normal spleen. Normal pancreas. Normal bilateral adrenal glands. Bilateral nonobstructing nephroliths. Normal visualized stomach. Normal small intestine. Colonic diverticulosis. Appendix not identified. Infrarenal fusiform abdominal aortic aneurysm measured up to 3.2 cm. Calcified plaque along the aorta and its branches. Normal inferior vena cava. Normal retroperitoneum. Normal urinary bladder. There is a small umbilical hernia containing fat. Normal osseous structures. CT/Abdomen/Pelvis without Cont IMPRESSION: Fusiform infrarenal abdominal aortic aneurysm stable. Bilateral nonobstructing nephroliths.. Electronically Signed: Rodney Swanson MD at 23:57 EST ,
--- NOTE | 2022-08-02 22:54 | EX.ED.DYSGE1 ---
HPI History of Present Illness Chief Complaint: Shortness of Breath Detail of Chief Complaint: Abdominal pain Informant: patient Narrative Narrative: Patient presents with increased abdominal pain over the past couple days. She points to the right upper quadrant as well as to the bilateral flank region. She reports nausea worsened anytime she tries to eat. She reports some mild dry cough. No fever or chills. She is a sore throat that she states has been ongoing for quite some time. [facility] Medical History Anxiety and depression Atherosclerotic heart disease of [place] coronary artery without angina pectoris Calculus of left kidney COPD (chronic obstructive pulmonary disease) Depression Essential hypertension GERD (gastroesophageal reflux disease) History of non-ST elevation myocardial infarction (NSTEMI) (09/01/21) Hyperlipidemia Ischemic cardiomyopathy Kidney stones Myocardial infarct Obesity (BMI 30.0-34.9) Old anterior wall myocardial infarction Opiate dependence EVELYN (obstructive sleep apnea) Osteoporosis Personal history of transient ischemic attack (TIA), and cerebral infarction without residual deficits Smoker Sustained SVT TIA (transient ischemic attack) Tobacco abuse Home Medications aspirin 81 mg tablet,delayed release 81 mg PO DAILY heart health 07/21/18 [History Last Taken 07/05/20] lorazepam 1 mg tablet 1 mg PO BID PRN PRN Anxiety 06/15/21 [History Last Taken Unknown] gabapentin 300 mg capsule 300 mg PO TID nerve pain #90 caps 01/01/22 [Rx Last Taken Unknown] amiodarone 200 mg tablet 200 mg PO 0800,2000 #180 tabs 06/04/22 [Rx Last Taken Unknown] atorvastatin 40 mg tablet (Lipitor) 40 mg PO QHS #90 tabs 06/04/22 [Rx Last Taken Unknown] carvedilol 6.25 mg tablet 6.25 mg PO BID #90 tabs 06/04/22 [Rx Last Taken Unknown] furosemide 20 mg tablet 20 mg PO BIDLX #180 tabs 06/04/22 [Rx Last Taken Unknown] lisinopril 2.5 mg tablet 2.5 mg PO BID #180 tabs 06/04/22 [Rx Last Taken Unknown] promethazine 25 mg tablet 25 mg PO Q6H PRN nausea and vomiting #10 tabs 06/04/22 [Rx Last Taken Unknown] paroxetine HCl 20 mg tablet 20 mg PO DAILY 06/09/22 [History Last Taken Unknown] promethazine 25 mg tablet 25 mg PO TID PRN nausea and vomiting #20 tabs 06/09/22 [Rx Last Taken Unknown] ondansetron 4 mg disintegrating tablet 4 mg PO Q8H PRN nausea and vomiting #10 tabs 08/03/22 [Rx Last Taken Unknown] Allergy/AdvReac Type Severity Reaction Status Date / Time No Known Allergies Allergy Verified 06/29/22 09:23 Family History Mother Hypertension CAD (coronary artery disease) CVA (cerebral vascular accident) Myocardial infarction Grandmother Myocardial infarction Surgical History History of hysterectomy History of left heart catheterization (01/20/22) History of total hysterectomy Hx of appendectomy Social History Smoking Status: Light Smoker (<10/day) alcohol intake: never substance use type: does not use ROS ROS ED Constitutional Constitutional ED: Denies chills or fever(s) Eyes Eyes: Denies change in vision or discharge from eye(s) ENT ENT ED: Reports sore throat; Denies discharge from eye(s) or rhinorrhea Cardiovascular Cardiovascular: Denies chest pain or palpitations Respiratory/Chest Respiratory/Chest: Reports cough; Denies dyspnea Gastrointestinal Gastrointestinal: Reports abdominal pain and nausea; Denies diarrhea or vomiting Genitourinary Genitourinary ED: Denies dysuria Musculoskeletal Musculoskeletal: Reports back pain; Denies extremity pain Integumentary Denies Abrasions or rash Neurologic Neurologic: Denies headache(s) or weakness Allergic/Immunologic Allergic/Immunologic ED: Denies lip swelling or urticaria EXAM Physical Exam Const Vital Signs: 08/02/22 20:33 08/02/22 20:35 08/02/22 22:19 Temperature 97.3 F L 97.3 F L Temperature Source Temporal Temporal Pulse Rate 88 88 Respiratory Rate 18 18 Respiratory Effort Normal Non-Labored Respiratory Depth Normal Respiratory Pattern Normal Blood Pressure 153/92 H 153/92 H Blood Pressure Mean 112 112 Pulse Ox 98 98 Oxygen Delivery Method Room Air Room Air Room Air 08/02/22 22:20 Temperature Temperature Source Pulse Rate 79 Respiratory Rate 22 H Respiratory Effort Respiratory Depth Respiratory Pattern Blood Pressure 159/99 H Blood Pressure Mean 119 Pulse Ox 98 Oxygen Delivery Method Room Air Positive well nourished and well developed General Appearance ED: well developed HEENT Reports normocephalic and head/scalp atraumatic Eyes PERRL and EOMs intact bilaterally Neck supple Chest Wall inspection of chest normal and palpation of chest normal Resp normal respiratory effort and clear to auscultation bilaterally Cardio regular rate and regular rhythm GI GI Narrative: Mild diffuse tenderness palpation. No guarding or rebound. Hypoactive bowel sounds. Palpation: soft Back/Spine no CVA tenderness Extremity normal to inspection Neuro oriented x3 and no sensory deficits noted Sensorium / Orientation: alert Motor Exam: strength 5/5 throughout Psych mental status grossly normal Skin no rashes or lesions noted MDM MDM MDM Narrative Medical decision making narrative: Lab work and urinalysis obtained. Patient given IV fluids and low-dose morphine and Zofran. CT flank ordered. Lab Data Attestation: I reviewed the patient's lab results. Labs: Laboratory Results - last 24 hr 08/02/22 08/02/22 08/02/22 20:11 20:11 20:11 WBC 7.4 RBC 4.75 Hgb 15.6 H Hct 44.6 MCV 93.9 MCH 32.8 H MCHC 35.0 RDW Std Deviation 43.0 RDW Coeff of Sariah 12.4 Plt Count 317 MPV 9.1 Immature Gran % (Auto) 0.100 Neut % (Auto) 42.3 L Lymph % (Auto) 47.0 H [place] % (Auto) 6.7 Eos % (Auto) 3.0 Baso % (Auto) 0.9 Absolute Neuts (auto) 3.1 Absolute Lymphs (auto) 3.49 Nucleated RBC % 0 Sodium 139 Potassium 3.5 Chloride 105 Carbon Dioxide 29.0 Anion Gap 5 BUN 14 Creatinine 0.97 Estim Creat Clear Calc 54.13 Est GFR (MDRD) Af Amer 74 Est GFR (MDRD) Non-Af 61 BUN/Creatinine Ratio 14.4 Glucose 93 Calcium 9.8 Total Bilirubin 0.40 Direct Bilirubin 0.13 AST 13 L ALT 17 Alkaline Phosphatase 129 H Total Protein 8.1 Albumin 3.9 Globulin 4.2 Lipase 82 Urine Color Urine Clarity Urine pH Ur Specific [place] Urine Protein Urine Glucose (UA) Urine Ketones Urine Occult Blood Urine Nitrite Urine Bilirubin Urine Urobilinogen Ur Leukocyte Esterase Urine RBC Urine WBC Ur Squamous Epith Cells Urine Bacteria Urine Mucus 08/02/22 22:10 WBC RBC Hgb Hct MCV MCH MCHC RDW Std Deviation RDW Coeff of Sariah Plt Count MPV Immature Gran % (Auto) Neut % (Auto) Lymph % (Auto) [place] % (Auto) Eos % (Auto) Baso % (Auto) Absolute Neuts (auto) Absolute Lymphs (auto) Nucleated RBC % Sodium Potassium Chloride Carbon Dioxide Anion Gap BUN Creatinine Estim Creat Clear Calc Est GFR (MDRD) Af Amer Est GFR (MDRD) Non-Af BUN/Creatinine Ratio Glucose Calcium Total Bilirubin Direct Bilirubin AST ALT Alkaline Phosphatase Total Protein Albumin Globulin Lipase Urine Color Yellow Urine Clarity Clear Urine pH 5.0 Ur Specific [place] 1.030 Urine Protein 30 H Urine Glucose (UA) Normal Urine Ketones 5 H Urine Occult Blood 10 H Urine Nitrite Negative Urine Bilirubin 1 H Urine Urobilinogen Normal Ur Leukocyte Esterase 25 H Urine RBC 0 SEEN Urine WBC 0-5 SEEN Ur Squamous Epith Cells 0-5 SEEN Urine Bacteria 0 SEEN Urine Mucus 2+ Radiography Diagnostic Testing: Clinical Impression(s) from Imaging Studies Abdomen/Pelvis CT 08/02/22 22:54 IMPRESSION: Fusiform infrarenal abdominal aortic aneurysm stable. Bilateral nonobstructing nephroliths.. Electronically Signed: Rodney Swanson MD at 23:57 EST , Treatment and Re-Evaluation Narrative: Lab work reveals no obvious abnormalities. Hemoglobin slightly concentrated. Urinalysis reveals no sign of acute infection. CT flank reveals a fusiform infrarenal aneurysm that is stable. There are bilateral nonobstructing kidney stones. No acute findings noted. Test results discussed with the patient. I will write her Zofran for home. She will continue supportive care with Tylenol or ibuprofen. She states she vomited up her Ativan tonight was unable to keep it down. She will be given a tab prior to discharge. Return instructions given. Discharge Plan Triage Chief Complaint: Shortness of Breath ED Provider: Lo Chu Dx/Rx/DC Orders Clinical Impression: Abdominal pain Instructions: ED Abdominal Pain Unkn Cause Fem Prescriptions: New ondansetron 4 mg tablet,disintegrating 4 mg PO Q8H PRN (Reason: nausea and vomiting) Qty: 10 0RF No Action aspirin 81 MG tablet 81 mg PO DAILY lorazepam 1 mg tablet 1 mg PO BID PRN PRN (Reason: Anxiety) Label Comments: take 1 tablet by mouth twice a day if needed gabapentin 300 MG capsule 300 mg PO TID Qty: 90 0RF promethazine 25 mg tablet 25 mg PO Q6H PRN (Reason: nausea and vomiting) Qty: 10 0RF paroxetine HCl 20 mg tablet 20 mg PO DAILY promethazine 25 mg tablet 25 mg PO TID PRN (Reason: nausea and vomiting) Qty: 20 0RF amiodarone 200 mg tablet 200 mg PO 0800,1999 Qty: 180 3RF atorvastatin [Lipitor] 40 mg tablet 40 mg PO QHS Qty: 90 3RF carvedilol 6.25 mg tablet 6.25 mg PO BID Qty: 90 3RF lisinopril 2.5 mg tablet 2.5 mg PO BID Qty: 180 3RF furosemide 20 mg tablet 20 mg PO BIDLX Qty: 180 3RF Primary Care Provider: Sudhir Ochoa Referrals: Sudhir Ochoa MD [Primary Care Provider] - 1-2 Weeks Disposition Disposition: Home, Self Care
[2022-08-02] MEDS: Ondansetron 4 MG/2 ML Vial IV (23:03)
[2022-08-02] MEDS: 0.9% Normal Saline 1,000 ML 150 ML IV (23:03)
[2022-08-02] MEDS: Morphine 4 MG/ML Syringe IV (23:03)
[2022-08-02 23:31] LABS: AST(SGOT) 13 U/L (15-37); Alanine Aminotransfer ALT/SGPT 17 U/L (13-56); Albumin, Serum 3.9 g/dL (3.2-5.0); Alkaline Phosphatase 129 U/L (45-117); Bilirubin, Direct 0.13 mg/dL (0.00-0.30); Globulin 4.2 g/dL (2.2-4.2); Lipase 82 U/L (73-393); Protein, Total 8.1 g/dL (6.4-8.2)
[2022-08-03] MEDS: LORazepam 1 MG Tablet PO (00:32)
[2022-08-03 00:33] VITALS: BP 156/87; PULSE 77; RESP 16; O2SAT 95
== END 2022-08-03 00:34 | disposition home or self-care (01) ==
PROVIDERS: Emergency Provider Emergency Medicine; PCP Internal Medicine; Visit Provider Emergency Medicine
DX: R10.9 Unspecified abdominal pain (principal); J44.9 Chronic obstructive pulmonary disease, unspecified; J02.9 Acute pharyngitis, unspecified; I25.10 Atherosclerotic heart disease of native coronary artery without angina pectoris; E78.5 Hyperlipidemia, unspecified; F17.200 Nicotine dependence, unspecified, uncomplicated; I10 Essential (primary) hypertension
CPT/HCPCS: 74176; 80048; 80076; 81001; 83690; 85025; 96361; 96374; 96375; 99284; J7030; J2405

== ENCOUNTER 2022-08-04 01:06 | Emergency (ER) | payer MEDICARE, MEDICAID, SELFPAY ==
[2022-08-04 01:08] VITALS: BP 149/130; PULSE 91; RESP 18; TEMP 36.3; O2SAT 98; BMI 29.3
--- NOTE | 2022-08-04 01:14 | CT_ITS ---
EXAM: CTA Abdominal Aorta and Bilateral Iliofemoral LE Runoff W/ Contrast Injection (and W/O Contrast Imag HISTORY: Abdominal pain, right leg pain TECHNIQUE: CTA Abdominal Aorta and Bilateral Iliofemoral LE Runoff W/ Contrast Injection (and W/O Contrast Imag 3D reconstructions were reviewed. A radiation dose optimization technique was used for this scan. COMPARISON: CT abdomen pelvis 08/02/2022 LIMITATIONS: None. FINDINGS: AORTA: Multi focal infrarenal abdominal aortic aneurysmal dilatation measuring up to 3.5 cm, similar compared to the prior. Moderate atherosclerotic calcifications and atheromatous changes. BILATERAL LOWER EXTREMITIES: Moderate atherosclerotic calcifications throughout the right lower extremity arterial vasculature with complete occlusion of the popliteal artery and distal reconstitution distal to the trifurcation via collaterals. The peroneal artery is unopacified at the level of the ankle. The anterior tibial and posterior tibial arteries are high visualized extending into the foot. Moderate atherosclerotic calcifications throughout the left lower extremity arterial vasculature contributing to mild to moderate stenoses throughout the femoral and popliteal arteries. There is loss of opacification of the anterior tibial and peroneal arteries in the mid to distal foreleg with only the posterior tibial artery extending into the foot. ABDOMEN/PELVIS: LOWER CHEST: Bilateral lower lobe groundglass nodules measuring up to 5 mm, similar compared to the prior. Coronary artery calcifications.. LIVER: Normal. GALLBLADDER/BILE DUCTS: Normal. PANCREAS: Normal. SPLEEN: Normal. ADRENAL GLANDS: Normal. KIDNEYS/URETERS/BLADDER: Diffusely irregular cortical enhancement of the bilateral kidneys, right greater than left. No hydroureteronephrosis. Punctate nonobstructive nephrolithiasis. RETROPERITONEUM: Normal. BOWEL/MESENTERY: Scattered colonic diverticulosis without discrete evidence of acute diverticulitis. No bowel dilatation or bowel wall thickening.. APPENDIX: Identified and normal. PERITONEUM: Normal. REPRODUCTIVE ORGANS: Status post hysterectomy. BONES/SOFT TISSUES: No acute abnormality. OTHER: None. CT/CTA Abd w/Runoff W/WO Contrast IMPRESSION: 1. Occlusion of the right popliteal artery as detailed above. 2. Multifocal abdominal aortic aneurysmal dilatation, similar compared to the prior. 3. Atherosclerotic changes in the bilateral lower extremities as detailed above. 4. Irregular bilateral renal cortical enhancement, likely represents cortical renal scarring however pyelonephritis or renal infarcts are not excluded. 5. Pulmonary nodules measuring up to 5 mm. Attention on follow-up recommended. 6. Additional chronic changes as above. *Fleischner Society Recommendations (Radiology 2005;237:395-400.) (Follow-up and management of nodules smaller than 8 mm detected incidentally at non-screening CT. Newly detected indeterminate nodule in persons 35 years of age or older.) Low risk patient: Minimal or absent history of smoking and of other known risk factors. <= 4mm: No followup needed >4-6mm: Follow-up CT at 12 months, if unchanged - no further followup >6-8mm: Initial Follow-up CT at 6-12 months, then at 18-24 months if no change >8mm: Follow-up CT at 3, 9, and 24 months; FDG PET scan; and or biopsy High risk patient: History of smoking or of other known risk factors. <= 4mm: Follow-up CT at 12 months, if unchanged - no further followup >4-6mm: Initial Follow-up CT at 6-12 months, then at 18-24 months if no change >6-8mm: Initial Follow-up CT at 3-6 months, then at 9-12 and 24 months if no change >8mm: Follow-up CT at 3, 9, and 24 months; FDG PET scan; and or biopsy Note: Non-solid (ground-glass) or partly solid nodules may require longer follow-up to Electronically Signed: Louis Gaming MD at 3:06 EST ,
--- NOTE | 2022-08-04 01:18 | EDS_ITS ---
HPI History of Present Illness HPI Narrative: Patient presents with right lower extremity pain that began proximately 30 minutes prior to arrival. Patient states the pain woke her up. Patient denies any trauma or injury. Patient admits to some tingling in her lower extremity. Patient states that it looks somewhat pale. Patient is concerned about her circulation. Patient states nothing makes her pain better and nothing makes it worse. Patient states she was seen here yesterday for abdominal pain. Patient states she still has some abdominal pain and nausea. Chief Complaint: Lower Extremity Injury Informant: patient Onset/Context/Timing Onset: Today Context: Sudden Onset Timing: Continuous Quality of Pain: Aching and Burning Location: Right lower extremity Worsened by: Nothing Relieved by: Nothing Associated Symptoms Associated Symptoms: Positive for Parasthesia; Negative for Weakness or Loss of Funtion [facility] Medical History Anxiety and depression Atherosclerotic heart disease of [place] coronary artery without angina pectoris Calculus of left kidney COPD (chronic obstructive pulmonary disease) Depression Essential hypertension GERD (gastroesophageal reflux disease) History of non-ST elevation myocardial infarction (NSTEMI) (09/01/21) Hyperlipidemia Ischemic cardiomyopathy Kidney stones Myocardial infarct Obesity (BMI 30.0-34.9) Old anterior wall myocardial infarction Opiate dependence EVELYN (obstructive sleep apnea) Osteoporosis Personal history of transient ischemic attack (TIA), and cerebral infarction without residual deficits Smoker Sustained SVT TIA (transient ischemic attack) Tobacco abuse Home Medications aspirin 81 mg tablet,delayed release 81 mg PO DAILY heart health 07/21/18 [History Last Taken 07/05/20] lorazepam 1 mg tablet 1 mg PO BID PRN PRN Anxiety 06/15/21 [History Last Taken Unknown] gabapentin 300 mg capsule 300 mg PO TID nerve pain #90 caps 01/01/22 [Rx Last Taken Unknown] amiodarone 200 mg tablet 200 mg PO 0800,2000 #180 tabs 06/04/22 [Rx Last Taken Unknown] atorvastatin 40 mg tablet (Lipitor) 40 mg PO QHS #90 tabs 06/04/22 [Rx Last Taken Unknown] carvedilol 6.25 mg tablet 6.25 mg PO BID #90 tabs 06/04/22 [Rx Last Taken Unknown] furosemide 20 mg tablet 20 mg PO BIDLX #180 tabs 06/04/22 [Rx Last Taken Unknown] lisinopril 2.5 mg tablet 2.5 mg PO BID #180 tabs 06/04/22 [Rx Last Taken Unknown] promethazine 25 mg tablet 25 mg PO Q6H PRN nausea and vomiting #10 tabs 06/04/22 [Rx Last Taken Unknown] paroxetine HCl 20 mg tablet 20 mg PO DAILY 06/09/22 [History Last Taken Unknown] promethazine 25 mg tablet 25 mg PO TID PRN nausea and vomiting #20 tabs 06/09/22 [Rx Last Taken Unknown] ondansetron 4 mg disintegrating tablet 4 mg PO Q8H PRN nausea and vomiting #10 tabs 08/03/22 [Rx Last Taken Unknown] clopidogrel 75 mg tablet (Plavix) 75 mg PO DAILY #30 tabs 08/04/22 [Rx Last Taken Unknown] Allergy/AdvReac Type Severity Reaction Status Date / Time No Known Allergies Allergy Verified 06/29/22 09:23 Family History Mother Hypertension CAD (coronary artery disease) CVA (cerebral vascular accident) Myocardial infarction Grandmother Myocardial infarction Surgical History History of hysterectomy History of left heart catheterization (01/20/22) History of total hysterectomy Hx of appendectomy Social History Smoking Status: Light Smoker (<10/day) alcohol intake: never substance use type: does not use ROS ROS ED Constitutional Constitutional ED: Denies chills or fever(s) Eyes Eyes: Denies blurry vision or change in vision ENT ENT ED: Denies rhinorrhea or sore throat Cardiovascular Cardiovascular: Denies chest pain or palpitations Respiratory/Chest Respiratory/Chest: Denies cough or dyspnea Gastrointestinal Gastrointestinal: Reports abdominal pain and nausea; Denies vomiting Genitourinary Genitourinary ED: Denies dysuria or hematuria Musculoskeletal Musculoskeletal: Reports back pain; Denies neck pain Integumentary Denies abscess or rash Neurologic Neurologic: Denies headache(s) or weakness Allergic/Immunologic Allergic/Immunologic ED: Denies mouth swelling or urticaria EXAM Physical Exam Const Vital Signs: 08/04/22 01:08 Temperature 97.3 F L Temperature Source Temporal Pulse Rate 91 Respiratory Rate 18 Blood Pressure 149/130 H Blood Pressure Mean 136 Pulse Ox 98 Oxygen Delivery Method Room Air Positive well nourished and well developed General Appearance ED: well developed HEENT Reports moist mucous membranes Neck supple and no JVD Resp normal respiratory effort and clear to auscultation bilaterally Cardio regular rate and regular rhythm GI normal to inspection, nondistended, normoactive bowel sounds and non-tender Palpation: soft Extremity normal to inspection Extremity Narrative: There is mild tenderness over the right thigh and right lower leg. There is no edema or ecchymosis. There is no bony crepitance or step-off. There is no deformity noted. Pedal and posterior tibial pulses were diminished. There is delayed capillary refill. General Extremety ED: Yes tenderness; Negative for edema General Extremity: Negative for edema Neuro oriented x3, CN's II-XII intact bilaterally and no sensory deficits noted Sensorium / Orientation: alert Motor Exam: strength 5/5 throughout Psych mental status grossly normal Skin no rashes or lesions noted MDM MDM MDM Narrative Medical decision making narrative: Patient was given IV fluids and morphine here. CBC was within normal limits. PT was INR and PTT were within normal limits. Comprehensive metabolic profile was within normal limits. Lactate was normal. CT the scan of the abdomen pelvis with lower extremity runoffs was obtained. There are moderate atherosclerotic calcifications throughout the right lower extremity with complete occlusion of the popliteal artery and distal reconstitution distal to the trifurcation via collaterals. The peroneal artery is unopacified at the level of the ankle. The anterior tibial and posterior tibial arteries are highly visualized extending into the foot. There is abdominal aortic aneurysms measuring 3.5 cm which are unchanged compared to previous CT scan. This was interpreted by the radiologist and reviewed by myself. Case was discussed with Dr. Sharp from vascular surgery. He recommended adding Plavix to the patient's aspirin. He will have the patient follow-up in his office with his PA this week and he will be back next week to follow-up with the patient as well. Patient understands and is agreeable with the plan. All questions were answered. Lab Data Attestation: I reviewed the patient's lab results. Labs: Laboratory Results - last 24 hr 08/04/22 08/04/22 08/04/22 01:35 01:35 01:35 WBC 6.0 RBC 4.63 Hgb 14.6 Hct 44.2 MCV 95.5 MCH 31.5 MCHC 33.0 D RDW Std Deviation 44.2 H RDW Coeff of Sariah 12.6 Plt Count 249 MPV 8.9 Immature Gran % (Auto) 0.200 Neut % (Auto) 38.8 L Lymph % (Auto) 49.0 H [place] % (Auto) 7.5 Eos % (Auto) 3.7 Baso % (Auto) 0.8 Absolute Neuts (auto) 2.3 Absolute Lymphs (auto) 2.95 Nucleated RBC % 0 PT 13.6 INR 1.1 APTT 28.9 Sodium 141 Potassium 3.7 Chloride 106 Carbon Dioxide 29.0 Anion Gap 6 BUN 17 Creatinine 0.97 Estim Creat Clear Calc 54.13 Est GFR (MDRD) Af Amer 74 Est GFR (MDRD) Non-Af 61 BUN/Creatinine Ratio 17.5 Glucose 105 Lactic Acid Calcium 9.6 Total Bilirubin 0.40 AST 10 L ALT 14 Alkaline Phosphatase 115 Total Protein 7.1 Albumin 3.4 Globulin 3.7 Albumin/Globulin Ratio 0.9 08/04/22 01:35 WBC RBC Hgb Hct MCV MCH MCHC RDW Std Deviation RDW Coeff of Sariah Plt Count MPV Immature Gran % (Auto) Neut % (Auto) Lymph % (Auto) [place] % (Auto) Eos % (Auto) Baso % (Auto) Absolute Neuts (auto) Absolute Lymphs (auto) Nucleated RBC % PT INR APTT Sodium Potassium Chloride Carbon Dioxide Anion Gap BUN Creatinine Estim Creat Clear Calc Est GFR (MDRD) Af Amer Est GFR (MDRD) Non-Af BUN/Creatinine Ratio Glucose Lactic Acid 0.9 Calcium Total Bilirubin AST ALT Alkaline Phosphatase Total Protein Albumin Globulin Albumin/Globulin Ratio Radiography Diagnostic Testing: Clinical Impression(s) from Imaging Studies Abdomen/Pelvis CTA 08/04/22 01:14 IMPRESSION: 1. Occlusion of the right popliteal artery as detailed above. 2. Multifocal abdominal aortic aneurysmal dilatation, similar compared to the prior. 3. Atherosclerotic changes in the bilateral lower extremities as detailed above. 4. Irregular bilateral renal cortical enhancement, likely represents cortical renal scarring however pyelonephritis or renal infarcts are not excluded. 5. Pulmonary nodules measuring up to 5 mm. Attention on follow-up recommended. 6. Additional chronic changes as above. *Fleischner Society Recommendations (Radiology 2005;237:395-400.) (Follow-up and management of nodules smaller than 8 mm detected incidentally at non-screening CT. Newly detected indeterminate nodule in persons 35 years of age or older.) Low risk patient: Minimal or absent history of smoking and of other known risk factors. <= 4mm: No followup needed >4-6mm: Follow-up CT at 12 months, if unchanged - no further followup >6-8mm: Initial Follow-up CT at 6-12 months, then at 18-24 months if no change >8mm: Follow-up CT at 3, 9, and 24 months; FDG PET scan; and or biopsy High risk patient: History of smoking or of other known risk factors. <= 4mm: Follow-up CT at 12 months, if unchanged - no further followup >4-6mm: Initial Follow-up CT at 6-12 months, then at 18-24 months if no change >6-8mm: Initial Follow-up CT at 3-6 months, then at 9-12 and 24 months if no change >8mm: Follow-up CT at 3, 9, and 24 months; FDG PET scan; and or biopsy Note: Non-solid (ground-glass) or partly solid nodules may require longer follow-up to Electronically Signed: Louis Gaming MD at 3:06 EST Reading Location ID and State: [address] [place] [address] Tel , Service support , Discharge Plan Triage Chief Complaint: Lower Extremity Injury ED Provider: Adryan Aguilera Dx/Rx/DC Orders Clinical Impression: Peripheral vascular disease, Tobacco abuse, Essential hypertension Instructions: ED Peripheral Artery Disease (PAD) Prescriptions: New clopidogrel [Plavix] 75 mg tablet 75 mg PO DAILY Qty: 30 0RF No Action aspirin 81 MG tablet 81 mg PO DAILY lorazepam 1 mg tablet 1 mg PO BID PRN PRN (Reason: Anxiety) Label Comments: take 1 tablet by mouth twice a day if needed gabapentin 300 MG capsule 300 mg PO TID Qty: 90 0RF promethazine 25 mg tablet 25 mg PO Q6H PRN (Reason: nausea and vomiting) Qty: 10 0RF paroxetine HCl 20 mg tablet 20 mg PO DAILY promethazine 25 mg tablet 25 mg PO TID PRN (Reason: nausea and vomiting) Qty: 20 0RF ondansetron 4 mg tablet,disintegrating 4 mg PO Q8H PRN (Reason: nausea and vomiting) Qty: 10 0RF amiodarone 200 mg tablet 200 mg PO 0800,2000 Qty: 180 3RF atorvastatin [Lipitor] 40 mg tablet 40 mg PO QHS Qty: 90 3RF carvedilol 6.25 mg tablet 6.25 mg PO BID Qty: 90 3RF lisinopril 2.5 mg tablet 2.5 mg PO BID Qty: 180 3RF furosemide 20 mg tablet 20 mg PO BIDLX Qty: 180 3RF Primary Care Provider: Sudhir Ochoa Referrals: Adryan Sharp MD [Med Staff - Active Staff] - 3-5 Days Sudhir Ochoa MD [Primary Care Provider] - 5-7 Days Disposition Disposition: Home, Self Care
[2022-08-04 01:41] LABS: Absolute Lymphocyte Count 2.95 X10^3/uL (0.83-4.51); Absolute Neutrophil Count 2.3 X10^3/uL (2.0-7.7); Basophil# 0.05 X10^3/uL; Basophil% 0.8 % (0-1); Eosinophil# 0.22 X10^3/uL; Eosinophils% 3.7 % (0-5); Hematocrit 44.2 % (37-47); Hemoglobin 14.6 g/dL (12.0-15.0); Lymphocyte # 2.95 X10^3/ul (0.83-4.51); Mean Corpuscular Hgb 31.5 pg (27.0-32.0); Mean Corpuscular Volume 95.5 fL (81-99); Mean Platelet Vol. 8.9 fl (6.2-12.0); Monocyte# 0.45 X10^3/uL; Monocyte% 7.5 % (0-10); NRBC Flagged by Analyzer 0 % (0-5); Neutrophil # 2.34 X10^3/uL (2.7-7.7); Neutrophil % 38.8 % (47-70); Platelet Count 249 K/mm3 (150-450); RBC Distribution Width CV 12.6 % (11.6-14.6); RBC Distribution Width SD 44.2 fl (35.1-43.9); Red Blood Count 4.63 M/mm3 (4.2-5.4)
[2022-08-04] MEDS: Morphine 4 MG/ML Syringe IV (01:43)
[2022-08-04] MEDS: 0.9% Normal Saline 1,000 ML 1000 ML IV (01:43)
[2022-08-04 01:58] LABS: International Normalized Ratio 1.1; Prothrombin Time (Protime)PT. 13.6 SECONDS (11.7-14.9)
[2022-08-04 01:59] LABS: Partial Thromboplast Time 28.9 Seconds (24.1-36.2)
[2022-08-04 02:07] LABS: ALB/GLOB Ratio 0.9 RATIO (0.9-2.4); AST(SGOT) 10 U/L (15-37); Alanine Aminotransfer ALT/SGPT 14 U/L (13-56); Albumin, Serum 3.4 g/dL (3.2-5.0); Alkaline Phosphatase 115 U/L (45-117); Anion Gap 6 (5-15); BUN 17 mg/dL (7-18); BUN/Creat Ratio 17.5 RATIO (10-20); Calcium,Total 9.6 mg/dL (8.5-10.1); Chloride 106 mmol/L (98-107); Creatinine, Serum 0.97 mg/dL (0.55-1.02); EST Glomerular Filtration Rate 61 mL/min (>60); Est Glom Filt Rate - Afr Amer 74 mL/min (>60); Estimated Creatinine Clearance 54.13 ml/min; Globulin 3.7 g/dL (2.2-4.2); Glucose 105 mg/dL (74-106); Potassium 3.7 mmol/L (3.5-5.1); Protein, Total 7.1 g/dL (6.4-8.2); Sodium Level 141 mmol/L (136-145)
[2022-08-04 02:09] LABS: Lactic Acid 0.9 mmol/L (0.4-1.9)
[2022-08-04] MEDS: LORazepam 1 MG Tablet PO (05:04)
[2022-08-04] MEDS: Clopidogrel Bisulfate 75 MG Tablet PO (05:04)
[2022-08-04 05:07] VITALS: BP 158/88
== END 2022-08-04 06:00 | disposition home or self-care (01) ==
PROVIDERS: Emergency Provider Emergency Medicine; PCP Internal Medicine; Visit Provider Emergency Medicine
DX: I73.9 Peripheral vascular disease, unspecified (principal); J44.9 Chronic obstructive pulmonary disease, unspecified; I77.1 Stricture of artery; I71.40 Abdominal aortic aneurysm, without rupture, unspecified; I25.10 Atherosclerotic heart disease of native coronary artery without angina pectoris; I25.5 Ischemic cardiomyopathy; I10 Essential (primary) hypertension; E78.5 Hyperlipidemia, unspecified; E66.9 Obesity, unspecified; G47.33 Obstructive sleep apnea (adult) (pediatric); Z72.0 Tobacco use; I25.2 Old myocardial infarction; Z79.02 Long term (current) use of antithrombotics/antiplatelets; Z79.899 Other long term (current) drug therapy; Z86.73 Personal history of transient ischemic attack (TIA), and cerebral infarction without residual deficits
CPT/HCPCS: 75635; 80053; 83605; 85025; 85610; 85730; 96361; 96374; 99285; J7030; Q9967; A4216

== ENCOUNTER 2022-08-08 20:05 | Emergency (ER) | payer MEDICARE, MEDICAID, SELFPAY ==
[2022-08-08 20:06] VITALS: BP 127/102; PULSE 82; RESP 18; TEMP 36.2; O2SAT 100
--- NOTE | 2022-08-08 20:30 | US_ITS ---
INDICATION: ruq pain EXAMINATION: US Abdomen RUQ (limited) TECHNIQUE: Gonsalez-scale and color Doppler imaging was performed of the right upper abdominal quadrant. COMPARISON: None. Findings: The liver is homogenous and normal in echogenicity and echotexture. There is no evidence of contour nodularity. No focal hepatic mass is identified. The main portal vein is normal in size and patent demonstrating hepatopetal flow. The gallbladder is unremarkable without evidence of stones, wall thickening or pericholecystic fluid. Sonographic Sanchez''s tenderness is not appreciated. There is no evidence of intrahepatic biliary ductal dilatation. The CBD is nondilated measuring 4 mm at the level of the kady hepatis. The visualized portions of the pancreas are unremarkable without evidence of focal or diffuse enlargement. Specifically, the tail is obscured by overlying bowel gas. Right kidney measures 10.5 cm in length. It is normal in echogenicity. No focal renal lesion is identified. There is no evidence of hydronephrosis. US/Gallbladder IMPRESSION: Normal right upper quadrant ultrasound. Electronically Signed: Karthik Duenas MD at 23:25 EST ,
--- NOTE | 2022-08-08 20:32 | EDS_ITS ---
HPI HPI - GI History of Present Illness Chief Complaint: Abd Pain Narrative Narrative: 66-year-old female presenting with right upper quadrant pain. She states she has all the time. She states that it is worse after eating. This hurts immediately. She has nausea without vomiting. Has not had a fever. She denies constipation or diarrhea. Patient reports she was seen recently in the emergency room and had a CT scan performed. She states he was ultimately diagnosed with a clot in her leg. She is referred to vascular surgery. She is currently on Eliquis and Plavix. She states she is still having abdominal pain which is worse at night. She called the on-call nurse and they referred her to the emergency room. [facility] Medical History Anxiety and depression Atherosclerotic heart disease of [place] coronary artery without angina pectoris Calculus of left kidney COPD (chronic obstructive pulmonary disease) Depression Essential hypertension GERD (gastroesophageal reflux disease) History of non-ST elevation myocardial infarction (NSTEMI) (09/01/21) Hyperlipidemia Ischemic cardiomyopathy Kidney stones Myocardial infarct Obesity (BMI 30.0-34.9) Old anterior wall myocardial infarction Opiate dependence EVELYN (obstructive sleep apnea) Osteoporosis Personal history of transient ischemic attack (TIA), and cerebral infarction without residual deficits Smoker Sustained SVT TIA (transient ischemic attack) Tobacco abuse Home Medications lorazepam 1 mg tablet 1 mg PO BID PRN PRN Anxiety 06/15/21 [History Last Taken Unknown] gabapentin 300 mg capsule 300 mg PO TID nerve pain #90 caps 01/01/22 [Rx Last Taken Unknown] amiodarone 200 mg tablet 200 mg PO 0800,1999 #180 tabs 06/04/22 [Rx Last Taken Unknown] atorvastatin 40 mg tablet (Lipitor) 40 mg PO QHS #90 tabs 06/04/22 [Rx Last Taken Unknown] carvedilol 6.25 mg tablet 6.25 mg PO BID #90 tabs 06/04/22 [Rx Last Taken Unknown] furosemide 20 mg tablet 20 mg PO BIDLX #180 tabs 06/04/22 [Rx Last Taken Unknown] lisinopril 2.5 mg tablet 2.5 mg PO BID #180 tabs 06/04/22 [Rx Last Taken Unknown] paroxetine HCl 20 mg tablet 20 mg PO DAILY 06/09/22 [History Last Taken Unknown] ondansetron 4 mg disintegrating tablet 4 mg PO Q8H PRN nausea and vomiting #10 tabs 08/03/22 [Rx Last Taken Unknown] clopidogrel 75 mg tablet (Plavix) 75 mg PO DAILY #30 tabs 08/04/22 [Rx Last Taken Unknown] rivaroxaban 20 mg tablet (Xarelto) 20 mg PO DAILY #30 tabs 08/05/22 [Rx Last Taken Unknown] pantoprazole 40 mg tablet,delayed release (Protonix) 40 mg PO DAILY #30 tabs 08/08/22 [Rx Last Taken Unknown] Allergy/AdvReac Type Severity Reaction Status Date / Time No Known Allergies Allergy Verified 08/05/22 15:29 Family History Mother Hypertension CAD (coronary artery disease) CVA (cerebral vascular accident) Myocardial infarction Grandmother Myocardial infarction Surgical History History of hysterectomy History of left heart catheterization (01/20/22) History of total hysterectomy Hx of appendectomy Social History Smoking Status: Light Smoker (<10/day) alcohol intake: never substance use type: does not use ROS ROS ED Constitutional Constitutional ED: Denies chills ENT ENT ED: Denies rhinorrhea or sore throat Cardiovascular Cardiovascular: Denies palpitations Respiratory/Chest Respiratory/Chest: Denies cough or dyspnea Gastrointestinal Gastrointestinal: Reports abdominal pain and nausea; Denies vomiting Genitourinary Genitourinary ED: Denies dysuria or hematuria Musculoskeletal Musculoskeletal: Denies arthralgias Integumentary Denies abscess or Abrasions Neurologic Neurologic: Denies headache(s) or paresthesias Psychiatric Psychiatric: Denies anxiety EXAM Physical Exam Const Vital Signs: 08/08/22 20:06 08/08/22 20:06 08/08/22 22:06 Temperature 97.2 F L 97.2 F L Temperature Source Temporal Temporal Pulse Rate 82 82 70 Respiratory Rate 18 18 15 Blood Pressure 127/102 H 127/102 H 131/81 H Blood Pressure Mean 110 110 97 Pulse Ox 100 100 96 Oxygen Delivery Method Room Air Room Air Room Air Positive well nourished General Appearance ED: NAD; Negative for pallor HEENT Reports moist mucous membranes Eyes PERRL General Eye ED: Negative for pale conjunctiva or scleral icterus Neck no lymphadenopathy Resp normal respiratory effort and clear to auscultation bilaterally Cardio regular rate and regular rhythm GI Palpation: tender RUQ Back/Spine no CVA tenderness Neuro CN's II-XII intact bilaterally Sensorium / Orientation: alert Psych mental status grossly normal Skin General Skin Exam: Negative for jaundice or pallor MDM MDM MDM Narrative Medical decision making narrative: Presenting with right upper quadrant pain. She has focal tenderness here. Recently had CT imaging of the abdomen pelvis which did not show any acute findings. She has had stable aneurysms. She states that her pain occurs with food and states it hurts immediately. She states that there is any kind of food. Blood work was obtained and her CBC and CMP are unremarkable. Lipase is negative. She was given morphine 4 mg IV as well as Zofran 4 mg. Right upper quadrant ultrasound was obtained. This is pending. Patient requested another dose of pain medication. Patient will be signed out to incoming ED physician for follow-up on the right upper quadrant ultrasound. I suspect that this is negative the patient is stable to be discharged home. I will start her on a PPI. Impression: 1. Right upper quadrant pain Lab Data Attestation: I reviewed the patient's lab results. Labs: Laboratory Results - last 24 hr 08/08/22 08/08/22 20:40 20:40 WBC 8.6 RBC 4.30 Hgb 13.9 Hct 41.1 MCV 95.6 MCH 32.3 H MCHC 33.8 RDW Std Deviation 43.4 RDW Coeff of Sariah 12.5 Plt Count 232 MPV 8.8 Immature Gran % (Auto) 0.400 Neut % (Auto) 62.6 Lymph % (Auto) 28.0 [place] % (Auto) 6.2 Eos % (Auto) 2.1 Baso % (Auto) 0.7 Absolute Neuts (auto) 5.4 Absolute Lymphs (auto) 2.39 Nucleated RBC % 0 Sodium 142 Potassium 3.7 Chloride 110 H Carbon Dioxide 27.0 Anion Gap 5 BUN 15 Creatinine 0.82 Estim Creat Clear Calc 64.03 Est GFR (MDRD) Af Amer 90 Est GFR (MDRD) Non-Af 74 BUN/Creatinine Ratio 18.3 Glucose 113 H Calcium 9.3 Total Bilirubin 0.20 AST 10 L ALT 15 Alkaline Phosphatase 126 H Total Protein 7.0 Albumin 3.3 Globulin 3.7 Albumin/Globulin Ratio 0.9 Lipase 155 Discharge Plan Triage Chief Complaint: Abd Pain ED Provider: Juan David Chambers Dx/Rx/DC Orders Instructions: ED Abdominal Pain Unkn Cause Fem Prescriptions: New pantoprazole [Protonix] 40 mg tablet,delayed release (DR/EC) 40 mg PO DAILY Qty: 30 0RF No Action Xarelto 20 mg tablet 20 mg PO DAILY Qty: 30 0RF Rx Instructions: must administer with evening meal lorazepam 1 mg tablet 1 mg PO BID PRN PRN (Reason: Anxiety) Label Comments: take 1 tablet by mouth twice a day if needed gabapentin 300 MG capsule 300 mg PO TID Qty: 90 0RF paroxetine HCl 20 mg tablet 20 mg PO DAILY ondansetron 4 mg tablet,disintegrating 4 mg PO Q8H PRN (Reason: nausea and vomiting) Qty: 10 0RF clopidogrel [Plavix] 75 mg tablet 75 mg PO DAILY Qty: 30 0RF amiodarone 200 mg tablet 200 mg PO 0800,2000 Qty: 180 3RF atorvastatin [Lipitor] 40 mg tablet 40 mg PO QHS Qty: 90 3RF carvedilol 6.25 mg tablet 6.25 mg PO BID Qty: 90 3RF lisinopril 2.5 mg tablet 2.5 mg PO BID Qty: 180 3RF furosemide 20 mg tablet 20 mg PO BIDLX Qty: 180 3RF Primary Care Provider: Sudhir Ochoa Referrals: Sudhir Ochoa MD [Primary Care Provider] - Disposition Disposition: Home, Self Care
[2022-08-08 20:50] LABS: Absolute Lymphocyte Count 2.39 X10^3/uL (0.83-4.51); Absolute Neutrophil Count 5.4 X10^3/uL (2.0-7.7); Basophil# 0.06 X10^3/uL; Basophil% 0.7 % (0-1); Eosinophil# 0.18 X10^3/uL; Eosinophils% 2.1 % (0-5); Hematocrit 41.1 % (37-47); Hemoglobin 13.9 g/dL (12.0-15.0); Lymphocyte # 2.39 X10^3/ul (0.83-4.51); Mean Corp Hgb Conc 33.8 g/dL (32-36); Mean Corpuscular Hgb 32.3 pg (27.0-32.0); Mean Corpuscular Volume 95.6 fL (81-99); Mean Platelet Vol. 8.8 fl (6.2-12.0); Monocyte# 0.53 X10^3/uL; Monocyte% 6.2 % (0-10); NRBC Flagged by Analyzer 0 % (0-5); Neutrophil # 5.36 X10^3/uL (2.7-7.7); Neutrophil % 62.6 % (47-70); Platelet Count 232 K/mm3 (150-450); RBC Distribution Width CV 12.5 % (11.6-14.6); RBC Distribution Width SD 43.4 fl (35.1-43.9); White Blood Count 8.6 K/mm3 (4.4-11.0)
[2022-08-08] MEDS: Ondansetron 4 MG/2 ML Vial IV (21:00)
[2022-08-08] MEDS: Morphine 4 MG/ML Syringe IV ×2 (21:01→23:31)
[2022-08-08 21:07] LABS: ALB/GLOB Ratio 0.9 RATIO (0.9-2.4); AST(SGOT) 10 U/L (15-37); Alanine Aminotransfer ALT/SGPT 15 U/L (13-56); Albumin, Serum 3.3 g/dL (3.2-5.0); Alkaline Phosphatase 126 U/L (45-117); Anion Gap 5 (5-15); BUN 15 mg/dL (7-18); BUN/Creat Ratio 18.3 RATIO (10-20); Calcium,Total 9.3 mg/dL (8.5-10.1); Chloride 110 mmol/L (98-107); Creatinine, Serum 0.82 mg/dL (0.55-1.02); EST Glomerular Filtration Rate 74 mL/min (>60); Est Glom Filt Rate - Afr Amer 90 mL/min (>60); Estimated Creatinine Clearance 64.03 ml/min; Globulin 3.7 g/dL (2.2-4.2); Glucose 113 mg/dL (74-106); Lipase 155 U/L (73-393); Potassium 3.7 mmol/L (3.5-5.1); Sodium Level 142 mmol/L (136-145)
[2022-08-08 22:06] VITALS: BP 131/81; PULSE 70; RESP 15; O2SAT 96
[2022-08-08 23:34] VITALS: BP 152/82; PULSE 80; RESP 15; O2SAT 95
[2022-08-08 23:52] VITALS: BP 152/82; PULSE 80; RESP 15; O2SAT 98
--- NOTE | 2022-08-14 13:06 | CASEMGMT ---
INCIDENTAL FINDINGS Per [facility] report 08/04/22: CT/CTA Abd w/Runoff W/WO Contrast IMPRESSION: 1.? Occlusion of the right popliteal artery as detailed above. 2.? Multifocal abdominal aortic aneurysmal dilatation, similar compared to the prior. 3.? Atherosclerotic changes in the bilateral lower extremities as detailed above. 4.? Irregular bilateral renal cortical enhancement, likely represents cortical renal scarring however pyelonephritis or renal infarcts are not excluded. 5.? Pulmonary nodules measuring up to 5 mm.? Attention on follow-up recommended. 6.? Additional chronic changes as above. ?*Fleischner Society Recommendations Low risk patient: Minimal or absent history of smoking and of other known risk factors. >4-6mm: Follow-up CT at 12 months, if unchanged - no further followup High risk patient: History of smoking or of other known risk factors. >4-6mm: Initial Follow-up CT at 6-12 months, then at 18-24 months if no change -TC to pt regarding the above. Call went straight to voicemail. [employer] left her name and phone contact. Per [facility], pt had a gallbladder ultrasound on 08/08/22 and a procedure done on 08/11/22.
== END 2022-08-09 00:14 | disposition home or self-care (01) ==
PROVIDERS: Emergency Provider Student in an Organized Health Care Education/Training Program; PCP Internal Medicine; Visit Provider Student in an Organized Health Care Education/Training Program
DX: R10.11 Right upper quadrant pain (principal); J44.9 Chronic obstructive pulmonary disease, unspecified; I25.10 Atherosclerotic heart disease of native coronary artery without angina pectoris; E78.5 Hyperlipidemia, unspecified; I25.5 Ischemic cardiomyopathy; I10 Essential (primary) hypertension; R11.0 Nausea; F17.200 Nicotine dependence, unspecified, uncomplicated; I25.2 Old myocardial infarction; K21.9 Gastro-esophageal reflux disease without esophagitis; Z87.442 Personal history of urinary calculi; G47.33 Obstructive sleep apnea (adult) (pediatric)
CPT/HCPCS: 76705; 80053; 83690; 85025; 96374; 96375; 96376; 99283; A4216; J2405

== ENCOUNTER 2022-08-11 11:11 | Day surgery (SDC) | payer MEDICARE, MEDICAID, SELFPAY ==
[2022-08-07 08:56] VITALS: BMI 29.0
--- NOTE | 2022-08-11 15:02 | OP.PCM_ITS ---
Report of Operation Date of Procedure: 08/11/22 Pre-Operative Diagnosis: right popliteal artery occlusion Post-Operative Diagnosis: resolving right popliteal artery thrombus Surgery/Procedure Performed:: aortogram, right lower extremity selective angiogram Description of Surgical Findings:: Patent right popliteal artery with residual lumen wall irregularity, AT lumen irregularity, peroneal occlusion, PT patent Surgeon: Adryan Sharp Type of Anesthesia: Sedation,Conscious Estimated Blood Loss (mL): 5 Description of Procedure: HPI: Patient is a 66-year-old female initially presented with abrupt onset of right lower leg pain with some preceding claudication. She present to the emergency room where CT scan revealed right popliteal artery occlusion consistent with either embolism or in situ thrombosis. She was placed on Plavix and full dose Xarelto presents now for outpatient angiogram with possible thrombectomy. Description of procedure: Upon obtaining form consent and verification correct patient procedure site patient was taken to the [facility] where she was positioned prepped and draped in usual sterile fashion. Timeout was then performed and conscious sedation administered with intermittent doses of Versed and fentanyl. Skin was anesthetized over the left common femoral artery, and ultrasound guidance was used to access in retrograde fashion using micropuncture needle and wire. This exchanged for micropuncture sheath through which hand- injection femoral angiogram revealed satisfactory placement with no extravasation or dissection. Through this a Bentson wire was advanced and the micro sheath exchanged for a short 5 Montenegrin sheath. Through the 5 Montenegrin sheath Omni Flush catheter advanced and abdominal aorta and is retraction aortogram pelvic angiogram was performed. With a navigated to the contralateral iliac system advancing the catheter in the distal external iliac artery and from this position subtraction angiography was performed sequentially to the right lower extremity. Imaging revealed near total resolution of the popliteal and tibial thrombus and was felt that no thrombectomy or angioplasty was appropriate. We then advanced a Bentson wire through the Omni Flush catheter and withdrew the catheter, and the 5 Montenegrin sheath was then exchanged for the sheath for the Star Close device. This device was then deployed, followed by initial 2 minutes of manual pressure. There is a small hematoma and tenderness over the site so additional pressure was held for 15 minutes. At the conclusion there is satisfactory hemostasis. Patient was then taken to the recovery room for this but discharged home. Radiograph interpretation: Aorta patent, small aneurysm with luminal irregularity. Left common iliac with calcified stenosis origin, followed by normal caliber with minimal atherosclerosis stenosis. Left external iliac artery patent with no significant vascular stenosis, left common femoral artery patent with no significant atherosclerosis or stenosis. Right common iliac with calcified stenosis at the origin, normal caliber distal. Right external iliac artery patent no significant stenosis or stenosis. Right common femoral artery patent with no significant atherosclerosis stenosis, right profundofemoral artery widely patent normal caliber. Right superficial femoral artery with mild diffuse atherosclerosis but no significant stenosis. Right popliteal artery mild patent with luminal irregularity of the P3 segment but no flow-limiting stenosis. Right anterior tibial artery with luminal irregularity consistent with resolving thrombus at its origin, and patent distally to the ankle. Right peroneal artery occluded proximally 2 cm distal to its origin. R ight posterior tibial artery patent with no significant stenosis or luminal irregularity, and patent to the ankle.
== END 2022-08-11 16:09 | disposition home or self-care (01) ==
PROVIDERS: PCP Internal Medicine; Referring Provider Surgery Trauma Surgery; Visit Provider Surgery Trauma Surgery
DX: I70.211 Atherosclerosis of native arteries of extremities with intermittent claudication, right leg (principal); J44.9 Chronic obstructive pulmonary disease, unspecified; I82.431 Acute embolism and thrombosis of right popliteal vein; I71.9 Aortic aneurysm of unspecified site, without rupture; I25.5 Ischemic cardiomyopathy; I25.10 Atherosclerotic heart disease of native coronary artery without angina pectoris; I10 Essential (primary) hypertension; E78.5 Hyperlipidemia, unspecified; R06.02 Shortness of breath; I25.2 Old myocardial infarction; G47.33 Obstructive sleep apnea (adult) (pediatric); E66.9 Obesity, unspecified; F17.200 Nicotine dependence, unspecified, uncomplicated; Z79.01 Long term (current) use of anticoagulants; Z79.02 Long term (current) use of antithrombotics/antiplatelets; Z79.899 Other long term (current) drug therapy; Z86.73 Personal history of transient ischemic attack (TIA), and cerebral infarction without residual deficits
CPT/HCPCS: 36200; 36245; 75625; 75710; 76937; 99152; 99153; C1757; C1769; J7040; C1760

== ENCOUNTER 2022-08-23 11:16 | Emergency (ER) | payer MEDICARE, MEDICAID, SELFPAY ==
[2022-08-23 11:18] VITALS: BP 168/110; PULSE 94; RESP 18; TEMP 36.9; O2SAT 99; BMI 32.5
[2022-08-23 11:32] VITALS: BP 168/110; PULSE 95; RESP 18; TEMP 36.9; O2SAT 99
--- NOTE | 2022-08-23 12:00 | EKG12_ITS ---
Test Reason : SOB Blood Pressure : / mmHG Vent. Rate : 092 BPM Atrial Rate : 092 BPM P-R Int : 134 ms QRS Dur : 096 ms QT Int : 354 ms P-R-T Axes : 058 031 076 degrees QTc Int : 437 ms Normal sinus rhythm Septal infarct , age undetermined Abnormal ECG Confirmed by GASPER MARTINEZ, PATRICK ([id number]), editor news MICAH SALMERON ([id number]) on 08/25/2022 1:08:31 PM Referred By: NEDRA Confirmed By:PATRICK JACKMAN MD
--- NOTE | 2022-08-23 12:00 | RAD_ITS ---
EXAM: XR CHEST, 1 VIEW CLINICAL INDICATION: chest pain TECHNIQUE: Frontal view of the chest. This report was created using [employer] report generation technology. COMPARISON: 06/29/2022. FINDINGS: LUNGS AND PLEURAL SPACES: No suspicious infiltrates. No pneumothorax. No effusion. HEART: Mild cardiomegaly. MEDIASTINUM: Central airways and mediastinal contour are unremarkable. BONES/JOINTS: Unremarkable. SOFT TISSUES: Unremarkable. VASCULATURE: Mild atherosclerotic calcifications along the transverse thoracic aorta. RAD/Chest 1 View (Portable) IMPRESSION: No acute findings in the chest and unchanged when compared to 06/29/2022. Electronically Signed: Waqas Mahan MD at 12:58 EST ,
[2022-08-23 12:48] LABS: Absolute Lymphocyte Count 1.72 X10^3/uL (0.83-4.51); Absolute Neutrophil Count 3.6 X10^3/uL (2.0-7.7); Basophil# 0.05 X10^3/uL; Basophil% 0.8 % (0-1); Eosinophils% 1.7 % (0-5); Hematocrit 42.9 % (37-47); Hemoglobin 14.3 g/dL (12.0-15.0); Lymphocyte # 1.72 X10^3/ul (0.83-4.51); Lymphocyte % 29.1 % (19-41); Mean Corp Hgb Conc 33.3 g/dL (32-36); Mean Corpuscular Hgb 31.8 pg (27.0-32.0); Mean Corpuscular Volume 95.3 fL (81-99); Mean Platelet Vol. 8.7 fl (6.2-12.0); Monocyte# 0.39 X10^3/uL; Monocyte% 6.6 % (0-10); NRBC Flagged by Analyzer 0 % (0-5); Neutrophil # 3.64 X10^3/uL (2.7-7.7); Neutrophil % 61.5 % (47-70); Platelet Count 338 K/mm3 (150-450); RBC Distribution Width CV 13.1 % (11.6-14.6); RBC Distribution Width SD 44.5 fl (35.1-43.9); White Blood Count 5.9 K/mm3 (4.4-11.0)
[2022-08-23 12:53] VITALS: BP 139/90; PULSE 90; RESP 16; TEMP 36.7; O2SAT 92
[2022-08-23 13:05] LABS: Anion Gap 4 (5-15); BUN 12 mg/dL (7-18); BUN/Creat Ratio 12.7 RATIO (10-20); Calcium,Total 9.7 mg/dL (8.5-10.1); Chloride 106 mmol/L (98-107); Creatinine, Serum 0.94 mg/dL (0.55-1.02); EST Glomerular Filtration Rate 63 mL/min (>60); Est Glom Filt Rate - Afr Amer 76 mL/min (>60); Estimated Creatinine Clearance 55.86 ml/min; Glucose 102 mg/dL (74-106); Potassium 3.9 mmol/L (3.5-5.1); Sodium Level 140 mmol/L (136-145); Troponin-I HS 17 pg/mL (3.0-54.0)
[2022-08-23 13:44] LABS: Bacteria 0 SEEN /hpf (None Seen); Mucous, Urine 0 SEEN /hpf (<or=2+); Red Blood Cells-Urine 0 SEEN /hpf (0-5); White Blood Cells 0 SEEN /hpf (0-5)
[2022-08-23 13:50] LABS: Color, Urine Yellow (Yellow); Glucose, Dipstick Normal (Normal); Ketone-Dipstick 5 mg/dl (Negative); Leukocyte Esterase-Dipstick 25 /ul (Negative); Nitrite-Dipstick Negative (Negative); Occult Blood-Urine 10 /ul (Negative); Protein-Dipstick 15 mg/dl (Negative); Specific Gravity, Urine 1.005 (1.002-1.030); Urine Bilirubin Dipstick Negative (Negative); Urine Clarity Clear (Clear); Urine Urobilinogen Normal (Normal)
[2022-08-23 14:05] VITALS: PULSE 81; RESP 16; O2SAT 98
[2022-08-23 14:05] LABS: Squamous Epithelial Cells - UA 0-5 SEEN /hpf (5-10)
[2022-08-23] MEDS: Ondansetron 4 MG/2 ML Vial IV (14:07)
[2022-08-23] MEDS: LORazepam 2 MG/ML Syringe 0.5 MG IV (14:08)
--- NOTE | 2022-08-23 15:05 | EX.ED.DYSGE1 ---
HPI History of Present Illness Chief Complaint: General Illness Narrative Narrative: 66-year-old female presenting with nausea, cough. She states he has been vomiting. Patient denies any black or bloody stools. She is on Xarelto and Plavix. Denies urinary symptoms. No fever. She does admit to having some worsening anxiety. She takes Ativan for this but did not take it prior to coming. [facility] Medical History Anxiety and depression Atherosclerotic heart disease of [place] coronary artery without angina pectoris Calculus of left kidney COPD (chronic obstructive pulmonary disease) Depression Essential hypertension GERD (gastroesophageal reflux disease) History of non-ST elevation myocardial infarction (NSTEMI) (09/01/21) Hyperlipidemia Ischemic cardiomyopathy Kidney stones Myocardial infarct Obesity (BMI 30.0-34.9) Old anterior wall myocardial infarction Opiate dependence EVELYN (obstructive sleep apnea) Osteoporosis Personal history of transient ischemic attack (TIA), and cerebral infarction without residual deficits Smoker Sustained SVT TIA (transient ischemic attack) Tobacco abuse Home Medications lorazepam 1 mg tablet 1 mg PO BID PRN PRN Anxiety 06/15/21 [History Last Taken Unknown] gabapentin 300 mg capsule 300 mg PO TID nerve pain #90 caps 01/01/22 [Rx Last Taken 08/11/22] amiodarone 200 mg tablet 200 mg PO 0800,1999 #180 tabs 06/04/22 [Rx Last Taken Unknown] atorvastatin 40 mg tablet (Lipitor) 40 mg PO QHS #90 tabs 06/04/22 [Rx Last Taken Unknown] carvedilol 6.25 mg tablet 6.25 mg PO BID #90 tabs 06/04/22 [Rx Last Taken Unknown] furosemide 20 mg tablet 20 mg PO BIDLX #180 tabs 06/04/22 [Rx Last Taken Unknown] lisinopril 2.5 mg tablet 2.5 mg PO BID #180 tabs 06/04/22 [Rx Last Taken 08/11/22] paroxetine HCl 20 mg tablet 20 mg PO DAILY 06/09/22 [History Last Taken Unknown] ondansetron 4 mg disintegrating tablet 4 mg PO Q8H PRN nausea and vomiting #10 tabs 08/03/22 [Rx Last Taken Unknown] clopidogrel 75 mg tablet (Plavix) 75 mg PO DAILY #30 tabs 08/04/22 [Rx Last Taken Unknown] rivaroxaban 20 mg tablet (Xarelto) 20 mg PO DAILY #30 tabs 08/05/22 [Rx Last Taken 08/08/22] pantoprazole 40 mg tablet,delayed release (Protonix) 40 mg PO DAILY #30 tabs 08/08/22 [Rx Last Taken Unknown] ondansetron 4 mg disintegrating tablet 4 mg PO Q8H PRN nausea and vomiting #10 tabs 08/16/22 [Rx Last Taken Unknown] Allergy/AdvReac Type Severity Reaction Status Date / Time No Known Allergies Allergy Verified 08/23/22 11:16 Family History Mother Hypertension CAD (coronary artery disease) CVA (cerebral vascular accident) Myocardial infarction Grandmother Myocardial infarction Surgical History History of hysterectomy History of left heart catheterization (01/20/22) History of total hysterectomy Hx of appendectomy Social History Smoking Status: Current some day smoker tobacco type: cigarettes alcohol intake: never substance use type: does not use ROS ROS ED Constitutional Constitutional ED: Denies chills or fever(s) Eyes Eyes: Denies change in vision or diplopia ENT ENT ED: Denies rhinorrhea or sore throat Cardiovascular Cardiovascular: Denies chest pain or palpitations Respiratory/Chest Respiratory/Chest: Denies cough or dyspnea Gastrointestinal Gastrointestinal: Reports nausea and vomiting; Denies abdominal pain Genitourinary Genitourinary ED: Denies dysuria or hematuria Musculoskeletal Musculoskeletal: Denies arthralgias or myalgias Integumentary Denies abscess Neurologic Neurologic: Denies headache(s) or paresthesias Psychiatric Psychiatric: Reports anxiety; Denies depression Endocrine Endocrinology: Denies cold intolerance or heat intolerance EXAM Physical Exam Const Vital Signs: 08/23/22 11:18 08/23/22 11:18 08/23/22 11:32 Temperature 98.4 F 98.4 F Temperature Source Temporal Temporal Pulse Rate 94 95 Respiratory Rate 18 18 Respiratory Effort Normal Non-Labored Respiratory Pattern Normal Blood Pressure 168/110 H 168/110 H Blood Pressure Mean 129 129 Pulse Ox 99 99 Oxygen Delivery Method Room Air Room Air 08/23/22 12:46 08/23/22 12:53 08/23/22 14:05 Temperature 98.0 F Temperature Source Temporal Pulse Rate 90 81 Respiratory Rate 16 16 Respiratory Effort Respiratory Pattern Blood Pressure 139/90 H Blood Pressure Mean 106 Pulse Ox 92 98 Oxygen Delivery Method Room Air Room Air Room Air Positive well nourished General Appearance ED: NAD; Negative for pallor HEENT Reports moist mucous membranes Eyes PERRL and EOMs intact bilaterally General Eye ED: Negative for pale conjunctiva or scleral icterus Neck no lymphadenopathy Chest Wall inspection of chest normal Resp normal respiratory effort and clear to auscultation bilaterally Auscultation: Negative for rales, rhonchi or wheezes Cardio regular rate and regular rhythm GI normal to inspection, nondistended, normoactive bowel sounds Back/Spine no CVA tenderness Neuro oriented x3 and CN's II-XII intact bilaterally Sensorium / Orientation: alert Psych mental status grossly normal Mood & Affect: anxious Skin no rashes or lesions noted General Skin Exam: Negative for jaundice or pallor MDM MDM MDM Narrative Medical decision making narrative: Patient presenting with vague complaints of generalized weakness, cough, nausea and vomiting. She does have history of cardiac disease so I did obtain an EKG which on my interpretation is a sinus rhythm with a ventricular rate of 92 bpm without sign of ischemic change. Chest x-ray was obtained and on my interpretation shows no acute cardiopulmonary process. The radiologist represents agrees. CBC and BMP are unremarkable. High-sensitivity troponin is 17. Urinalysis negative for infection. Patient was medicated with Zofran and Ativan and feels improvement. Since her work-up was ultimately negative I feel she stable for discharge home. Return precautions were discussed. Impression: 1. Nausea/vomiting 2. Generalized weakness 3. Anxiety Lab Data Attestation: I reviewed the patient's lab results. Labs: Laboratory Results - last 24 hr 08/23/22 08/23/22 08/23/22 12:40 12:40 13:30 WBC 5.9 RBC 4.50 Hgb 14.3 Hct 42.9 MCV 95.3 MCH 31.8 MCHC 33.3 RDW Std Deviation 44.5 H RDW Coeff of Sariah 13.1 Plt Count 338 MPV 8.7 Immature Gran % (Auto) 0.300 Neut % (Auto) 61.5 Lymph % (Auto) 29.1 [place] % (Auto) 6.6 Eos % (Auto) 1.7 Baso % (Auto) 0.8 Absolute Neuts (auto) 3.6 Absolute Lymphs (auto) 1.72 Nucleated RBC % 0 Sodium 140 Potassium 3.9 Chloride 106 Carbon Dioxide 30.0 Anion Gap 4 L BUN 12 Creatinine 0.94 Estim Creat Clear Calc 55.86 Est GFR (MDRD) Af Amer 76 Est GFR (MDRD) Non-Af 63 BUN/Creatinine Ratio 12.7 Glucose 102 Calcium 9.7 Troponin I High Sens 17 Urine Color Yellow Urine Clarity Clear Urine pH 7.0 Ur Specific [place] 1.005 Urine Protein 15 H Urine Glucose (UA) Normal Urine Ketones 5 H Urine Occult Blood 10 H Urine Nitrite Negative Urine Bilirubin Negative Urine Urobilinogen Normal Ur Leukocyte Esterase 25 H Urine RBC 0 SEEN Urine WBC 0 SEEN Ur Squamous Epith Cells 0-5 SEEN Urine Bacteria 0 SEEN Urine Mucus 0 SEEN Radiography Diagnostic Testing: Clinical Impression(s) from Imaging Studies Chest X-Ray 08/23/22 12:00 IMPRESSION: No acute findings in the chest and unchanged when compared to 06/29/2022. Electronically Signed: Waqas Mahan MD at 12:58 EST , Discharge Plan Triage Chief Complaint: General Illness ED Provider: Juan David Chambers Dx/Rx/DC Orders Prescriptions: No Action Xarelto 20 mg tablet 20 mg PO DAILY Qty: 30 0RF Rx Instructions: must administer with evening meal lorazepam 1 mg tablet 1 mg PO BID PRN PRN (Reason: Anxiety) Label Comments: take 1 tablet by mouth twice a day if needed gabapentin 300 MG capsule 300 mg PO TID Qty: 90 0RF paroxetine HCl 20 mg tablet 20 mg PO DAILY ondansetron 4 mg tablet,disintegrating 4 mg PO Q8H PRN (Reason: nausea and vomiting) Qty: 10 0RF clopidogrel [Plavix] 75 mg tablet 75 mg PO DAILY Qty: 30 0RF pantoprazole [Protonix] 40 mg tablet,delayed release (DR/EC) 40 mg PO DAILY Qty: 30 0RF amiodarone 200 mg tablet 200 mg PO 0800,1999 Qty: 180 3RF atorvastatin [Lipitor] 40 mg tablet 40 mg PO QHS Qty: 90 3RF carvedilol 6.25 mg tablet 6.25 mg PO BID Qty: 90 3RF lisinopril 2.5 mg tablet 2.5 mg PO BID Qty: 180 3RF furosemide 20 mg tablet 20 mg PO BIDLX Qty: 180 3RF ondansetron 4 mg tablet,disintegrating 4 mg PO Q8H PRN (Reason: nausea and vomiting) Qty: 10 0RF Primary Care Provider: Sudhir Ochoa Referrals: Sudhir Ochoa MD [Primary Care Provider] -
[2022-08-23 15:20] VITALS: BP 132/98; PULSE 68; RESP 16; O2SAT 99
== END 2022-08-23 15:27 | disposition home or self-care (01) ==
PROVIDERS: Emergency Provider Student in an Organized Health Care Education/Training Program; PCP Internal Medicine; Visit Provider Student in an Organized Health Care Education/Training Program
DX: R11.2 Nausea with vomiting, unspecified (principal); J44.9 Chronic obstructive pulmonary disease, unspecified; I25.10 Atherosclerotic heart disease of native coronary artery without angina pectoris; I10 Essential (primary) hypertension; F41.9 Anxiety disorder, unspecified; R53.1 Weakness; E78.5 Hyperlipidemia, unspecified
CPT/HCPCS: 71045; 80048; 81001; 84484; 85025; 93005; 96374; 96375; 99285; A4216; J2405

== ENCOUNTER 2022-08-30 13:01 | Emergency (ER) | payer MEDICARE, MEDICAID, SELFPAY ==
[2022-08-30 13:03] VITALS: BP 150/94; PULSE 80; RESP 18; TEMP 36.6; O2SAT 99; BMI 30.2
--- NOTE | 2022-08-30 14:08 | ED.VIS.GI ---
HPI HPI - GI History of Present Illness Chief Complaint: Abd Pain Informant: patient Narrative Narrative: Patient presents for recurrent symptoms over the past 2 months. She seen multiple times in ER. Reports right upper quadrant abdominal pain worse with meals. Pain to left shoulder and her back. Does report chest discomfort. She states she has had her gallbladder evaluated. She seen her doctors at [facility] is being referred to GI. She is on a PPI. Denies vomiting or diarrhea. Denies history of blood clots. Prior similar symptoms: Yes PFSH PFSH Medical History Anxiety and depression Atherosclerotic heart disease of [place] coronary artery without angina pectoris Calculus of left kidney COPD (chronic obstructive pulmonary disease) Depression Essential hypertension GERD (gastroesophageal reflux disease) History of non-ST elevation myocardial infarction (NSTEMI) (09/01/21) Hyperlipidemia Ischemic cardiomyopathy Kidney stones Myocardial infarct Obesity (BMI 30.0-34.9) Old anterior wall myocardial infarction Opiate dependence EVELYN (obstructive sleep apnea) Osteoporosis Personal history of transient ischemic attack (TIA), and cerebral infarction without residual deficits Smoker Sustained SVT TIA (transient ischemic attack) Tobacco abuse Home Medications lorazepam 1 mg tablet 1 mg PO BID PRN PRN Anxiety 06/15/21 [History Last Taken Unknown] gabapentin 300 mg capsule 300 mg PO TID nerve pain #90 caps 01/01/22 [Rx Last Taken 08/11/22] amiodarone 200 mg tablet 200 mg PO 0800,1999 #180 tabs 06/04/22 [Rx Last Taken Unknown] atorvastatin 40 mg tablet (Lipitor) 40 mg PO QHS #90 tabs 06/04/22 [Rx Last Taken Unknown] carvedilol 6.25 mg tablet 6.25 mg PO BID #90 tabs 06/04/22 [Rx Last Taken Unknown] furosemide 20 mg tablet 20 mg PO BIDLX #180 tabs 06/04/22 [Rx Last Taken Unknown] lisinopril 2.5 mg tablet 2.5 mg PO BID #180 tabs 06/04/22 [Rx Last Taken 08/11/22] paroxetine HCl 20 mg tablet 20 mg PO DAILY 06/09/22 [History Last Taken Unknown] ondansetron 4 mg disintegrating tablet 4 mg PO Q8H PRN nausea and vomiting #10 tabs 08/03/22 [Rx Last Taken Unknown] clopidogrel 75 mg tablet (Plavix) 75 mg PO DAILY #30 tabs 08/04/22 [Rx Last Taken Unknown] rivaroxaban 20 mg tablet (Xarelto) 20 mg PO DAILY #30 tabs 08/05/22 [Rx Last Taken 08/08/22] pantoprazole 40 mg tablet,delayed release (Protonix) 40 mg PO DAILY #30 tabs 08/08/22 [Rx Last Taken Unknown] ondansetron 4 mg disintegrating tablet 4 mg PO Q8H PRN nausea and vomiting #10 tabs 08/16/22 [Rx Last Taken Unknown] ondansetron 4 mg disintegrating tablet 4 mg PO Q8H PRN nausea and vomiting #10 tabs 08/23/22 [Rx Last Taken Unknown] sucralfate 100 mg/mL oral suspension (Carafate) 10 ml PO Q6H #1,000 mL 08/30/22 [Rx Last Taken Unknown] Allergy/AdvReac Type Severity Reaction Status Date / Time No Known Allergies Allergy Verified 08/30/22 13:11 Family History Mother Hypertension CAD (coronary artery disease) CVA (cerebral vascular accident) Myocardial infarction Grandmother Myocardial infarction Surgical History History of hysterectomy History of left heart catheterization (01/20/22) History of total hysterectomy Hx of appendectomy Social History Smoking Status: Current some day smoker tobacco type: cigarettes alcohol intake: never substance use type: does not use ROS ROS ED Constitutional Constitutional ED: Denies chills, fever(s) or sweats Eyes Eyes: Denies change in vision ENT ENT ED: Denies dysphagia or sore throat Cardiovascular Cardiovascular: Reports chest pain; Denies leg edema, palpitations or racing heartbeat Respiratory/Chest Respiratory/Chest: Denies cough, dyspnea or dyspnea on exertion Gastrointestinal Gastrointestinal: Reports abdominal pain; Denies diarrhea, nausea or vomiting Genitourinary Genitourinary ED: Denies dysuria, hematuria or urinary frequency Musculoskeletal Musculoskeletal: Reports back pain; Denies extremity pain or neck pain Integumentary Denies rash or wounds Neurologic Neurologic: Denies headache(s), paresthesias or weakness EXAM Physical Exam Const Vital Signs: 08/30/22 13:03 08/30/22 14:29 08/30/22 16:10 Temperature 98 F 98.6 F Temperature Source Oral Pulse Rate 80 70 78 Respiratory Rate 18 21 H 16 Blood Pressure 150/94 H 159/96 H 126/78 H Blood Pressure Mean 112 117 Pulse Ox 99 99 99 Oxygen Delivery Method Room Air Room Air Positive well nourished and well developed General Appearance ED: well developed and NAD HEENT Reports moist mucous membranes normocephalic and atraumatic Eyes PERRL, EOMs intact bilaterally and conjunctivae normal General Eye ED: Yes normal appearance of both eyes Neck no lymphadenopathy and supple General: Negative for tenderness Chest Wall Chest: Negative for tenderness Resp normal respiratory effort and normal air movement Effort and Inspection: symmetric chest movement; Negative for respiratory distress Cardio regular rate, regular rhythm and no murmurs Peripheral Pulses: pulses 2+ throughout GI normal to inspection, nondistended, normoactive bowel sounds GI Narrative: Mild tenderness right upper quadrant no guarding or rebound. Negative McBurney's. Palpation: Negative for guarding or rebound tenderness present Back/Spine no CVA tenderness and no thoracic nor lumbar tenderness Extremity normal to inspection General Extremety ED: Negative for edema or tenderness General Extremity: Negative for edema Neuro oriented x3 and no sensory deficits noted Sensorium / Orientation: awake and alert Skin no rashes or lesions noted and no wounds MDM MDM MDM Narrative Medical decision making narrative: Vital signs are stable reporting epigastric pain with exam pain right upper quadrant reporting pain into the left chest and shoulder and back. Reports pain worse with eating. States is immediate. Denies bloody stools. She is on a PPI. I did check abdominal labs all normal. Cardiac work-up negative D-dimer for which chest pains with her deep breath was elevated subsequent CT of the chest negative for PEs. She is she is on Xarelto history of paroxysmal A. fib. EKG is sinus rhythm With PVC. Patient is more reassured. She had a gallbladder ultrasound earlier this month that was normal. She had 2 CTs of her abdomen pelvis at the end of July. I will add Carafate for her symptoms. From her history reported has a GI referral from her PCP. She will follow-up as an outpatient. Return precautions. All questions were answered. Lab Data Attestation: I reviewed the patient's lab results. Labs: Laboratory Results - last 24 hr 08/30/22 08/30/22 08/30/22 13:35 13:35 13:35 WBC 7.3 RBC 4.41 Hgb 14.1 Hct 42.4 MCV 96.1 MCH 32.0 MCHC 33.3 RDW Std Deviation 47.2 H RDW Coeff of Sariah 13.4 Plt Count 290 MPV 9.6 Immature Gran % (Auto) 0.400 Neut % (Auto) 53.8 Lymph % (Auto) 33.8 [place] % (Auto) 7.9 Eos % (Auto) 3.0 Baso % (Auto) 1.1 H Absolute Neuts (auto) 4.0 Absolute Lymphs (auto) 2.48 Nucleated RBC % 0 PT 13.4 INR 1.1 APTT 27.6 D-Dimer Quant (PE/DVT) 0.99 H* Sodium 140 Potassium 3.7 Chloride 106 Carbon Dioxide 28.0 Anion Gap 6 BUN 18 Creatinine 0.94 Estim Creat Clear Calc 55.86 Est GFR (MDRD) Af Amer 77 Est GFR (MDRD) Non-Af 63 BUN/Creatinine Ratio 19.1 Glucose 94 Calcium 9.4 Total Bilirubin 0.30 AST 13 L ALT 17 Alkaline Phosphatase 134 H Troponin I High Sens 21 Total Protein 7.4 Albumin 3.6 Globulin 3.8 Albumin/Globulin Ratio 0.9 Lipase 161 Radiography Diagnostic Testing: Clinical Impression(s) from Imaging Studies Chest CTA 08/30/22 14:57 IMPRESSION: No pulmonary embolism. No visualized focal infiltrate. [id number] cardiomegaly coronary disease. Atherosclerotic disease of the aorta. Stable appearing partially visualized abdominal aortic aneurysm. Small hiatal hernia. Electronically Signed: Avelina Miller MD at 15:48 EST , Discharge Plan Triage Chief Complaint: Abd Pain ED Provider: Gonsalo Melendez Dx/Rx/DC Orders Clinical Impression: Chest pain, Abdominal pain Instructions: Abdominal Pain, ED Chest Pain, Uncertain Cause Prescriptions: New sucralfate [Carafate] 100 mg/mL suspension 10 ml PO Q6H Qty: 1000 0RF Rx Instructions: x 2 weeks No Action Xarelto 20 mg tablet 20 mg PO DAILY Qty: 30 0RF Rx Instructions: must administer with evening meal lorazepam 1 mg tablet 1 mg PO BID PRN PRN (Reason: Anxiety) Label Comments: take 1 tablet by mouth twice a day if needed gabapentin 300 MG capsule 300 mg PO TID Qty: 90 0RF paroxetine HCl 20 mg tablet 20 mg PO DAILY ondansetron 4 mg tablet,disintegrating 4 mg PO Q8H PRN (Reason: nausea and vomiting) Qty: 10 0RF clopidogrel [Plavix] 75 mg tablet 75 mg PO DAILY Qty: 30 0RF pantoprazole [Protonix] 40 mg tablet,delayed release (DR/EC) 40 mg PO DAILY Qty: 30 0RF ondansetron 4 mg tablet,disintegrating 4 mg PO Q8H PRN (Reason: nausea and vomiting) Qty: 10 0RF amiodarone 200 mg tablet 200 mg PO 0800,2000 Qty: 180 3RF atorvastatin [Lipitor] 40 mg tablet 40 mg PO QHS Qty: 90 3RF carvedilol 6.25 mg tablet 6.25 mg PO BID Qty: 90 3RF lisinopril 2.5 mg tablet 2.5 mg PO BID Qty: 180 3RF furosemide 20 mg tablet 20 mg PO BIDLX Qty: 180 3RF ondansetron 4 mg tablet,disintegrating 4 mg PO Q8H PRN (Reason: nausea and vomiting) Qty: 10 0RF Primary Care Provider: Sudhir Ochoa Referrals: Sudhir Ochoa MD [Primary Care Provider] - 3-5 Days Activity Restrictions/Additional Instructions: Cardiac work-up negative. CTA chest also negative. Take Carafate as prescribed continue plan follow-up with GI. Disposition Disposition: Home, Self Care Discharge Date/Time: 08/30/22 16:22
[2022-08-30 14:27] LABS: Absolute Lymphocyte Count 2.48 X10^3/uL (0.83-4.51); Basophil# 0.08 X10^3/uL; Basophil% 1.1 % (0-1); Eosinophil# 0.22 X10^3/uL; Hematocrit 42.4 % (37-47); Hemoglobin 14.1 g/dL (12.0-15.0); Lymphocyte # 2.48 X10^3/ul (0.83-4.51); Lymphocyte % 33.8 % (19-41); Mean Corp Hgb Conc 33.3 g/dL (32-36); Mean Corpuscular Volume 96.1 fL (81-99); Mean Platelet Vol. 9.6 fl (6.2-12.0); Monocyte# 0.58 X10^3/uL; Monocyte% 7.9 % (0-10); NRBC Flagged by Analyzer 0 % (0-5); Neutrophil # 3.95 X10^3/uL (2.7-7.7); Neutrophil % 53.8 % (47-70); Platelet Count 290 K/mm3 (150-450); RBC Distribution Width CV 13.4 % (11.6-14.6); RBC Distribution Width SD 47.2 fl (35.1-43.9); Red Blood Count 4.41 M/mm3 (4.2-5.4); White Blood Count 7.3 K/mm3 (4.4-11.0)
[2022-08-30 14:29] VITALS: BP 159/96; PULSE 70; RESP 21; O2SAT 99
[2022-08-30 14:34] LABS: International Normalized Ratio 1.1; Prothrombin Time (Protime)PT. 13.4 SECONDS (11.7-14.9)
[2022-08-30 14:35] LABS: Partial Thromboplast Time 27.6 Seconds (24.1-36.2)
[2022-08-30 14:45] LABS: ALB/GLOB Ratio 0.9 RATIO (0.9-2.4); AST(SGOT) 13 U/L (15-37); Alanine Aminotransfer ALT/SGPT 17 U/L (13-56); Albumin, Serum 3.6 g/dL (3.2-5.0); Alkaline Phosphatase 134 U/L (45-117); Anion Gap 6 (5-15); BUN 18 mg/dL (7-18); BUN/Creat Ratio 19.1 RATIO (10-20); Calcium,Total 9.4 mg/dL (8.5-10.1); Chloride 106 mmol/L (98-107); Creatinine, Serum 0.94 mg/dL (0.55-1.02); EST Glomerular Filtration Rate 63 mL/min (>60); Est Glom Filt Rate - Afr Amer 77 mL/min (>60); Estimated Creatinine Clearance 55.86 ml/min; Globulin 3.8 g/dL (2.2-4.2); Glucose 94 mg/dL (74-106); Lipase 161 U/L (73-393); Potassium 3.7 mmol/L (3.5-5.1); Protein, Total 7.4 g/dL (6.4-8.2); Sodium Level 140 mmol/L (136-145); Troponin-I HS 21 pg/mL (3.0-54.0)
[2022-08-30 14:50] LABS: D-Dimer Quantitative (DVT/PE) 0.99 FEU/ug/m (0.27-0.49)
--- NOTE | 2022-08-30 14:57 | CT_ITS ---
STUDY: CTA CHEST REASON FOR EXAM: Female, 66 years old. Chest pain -- elevated dimer RADIATION DOSAGE (If Supplied By Facility): CTDIvol = ( 13.88 ) mGy, DLP = ( 487.54 ) mGycm TECHNIQUE: The examination was performed with the intravenous administration of IV 100mL Isovue-370. Post-processing of the angiographic images was performed, with multiplanar reformation and 3D reconstruction. Individualized dose optimization techniques were used for this CT. COMPARISON: August 04, 2022 CT angiogram abdomen, CT angiogram chest January 26, 2022 FINDINGS: There is a mildly inhomogeneous appearance of the visualized thyroid. Normal enhancement of the main pulmonary artery and right and left pulmonary arteries. Normal enhancement of the bilateral peripheral pulmonary arteries. There is no demonstrated pulmonary embolism. There is atherosclerotic tortuosity of the aortic arch and descending thoracic aorta. Stable since prior study demonstrating peripheral plaque within the superior aspect of the lumen of the proximal descending thoracic aorta. There is no demonstrated aortic dissection. The visualized coronary calcifications. There is mild to moderate cardiac enlargement. There is a minimal amount of fluid in the pericardial recess. Normal hilar regions. Normal visualized trachea and bronchi. There is visualized increased AP diameter of the chest. There is an emphysematous bleb in the anterior aspect of the left lung. There is no visualized focal consolidation pleural effusion or pulmonary edema. Normal pulmonary parenchyma. Normal pleura. Normal chest wall structures. There are degenerative changes of thoracic spine. There is partially visualized aneurysmal dilatation of the abdominal aorta measuring 3.0 x 2.6 cm stable since the prior study. There is a Visualized small hiatal hernia. CT/CTA Chest W/WO Contrast IMPRESSION: No pulmonary embolism. No visualized focal infiltrate. Kamk-gf-[id number] cardiomegaly coronary disease. Atherosclerotic disease of the aorta. Stable appearing partially visualized abdominal aortic aneurysm. Small hiatal hernia. Electronically Signed: Avelina Miller MD at 15:48 EST ,
[2022-08-30 16:10] VITALS: BP 126/78; PULSE 78; RESP 16; TEMP 37; O2SAT 99
--- NOTE | 2022-08-30 17:31 | ED.RN ---
Pt. son Sanju calling ED multiple times from multiple numbers after pt. discharge. Son is unhappy with pt. discharge information and is disagreeable. Pt. son sounds very erratic on phone unable to concentrate on more than one subject on the phone. Sanju has spoken with Regla Sinclair RN, this RN and son continues to disagree with and instructions that were sent home with patient. Sanju was updated that if his mother wanted a copy of her records and scans he could follow up with medical records. Sanju continues to yell and typing secretary over the phone, yell at this RN over the phone. Sanju told that it was not acceptable to speak with staff that way.
== END 2022-08-30 16:22 | disposition home or self-care (01) ==
PROVIDERS: Emergency Provider Emergency Medicine; PCP Internal Medicine; Visit Provider Emergency Medicine
DX: R10.11 Right upper quadrant pain (principal); J44.9 Chronic obstructive pulmonary disease, unspecified; I48.0 Paroxysmal atrial fibrillation; R10.13 Epigastric pain; R07.9 Chest pain, unspecified; E78.5 Hyperlipidemia, unspecified; I10 Essential (primary) hypertension; I25.10 Atherosclerotic heart disease of native coronary artery without angina pectoris; I25.2 Old myocardial infarction; F17.210 Nicotine dependence, cigarettes, uncomplicated; Z90.49 Acquired absence of other specified parts of digestive tract; Z90.710 Acquired absence of both cervix and uterus; Z79.02 Long term (current) use of antithrombotics/antiplatelets; Z79.899 Other long term (current) drug therapy; Z86.73 Personal history of transient ischemic attack (TIA), and cerebral infarction without residual deficits
CPT/HCPCS: 71275; 80053; 83690; 84484; 85025; 85379; 85610; 85730; 93005; 96360; 96361; 99285; J7040; Q9967; A4216

== ENCOUNTER 2022-09-02 18:59 | Emergency (ER) | payer MEDICARE, MEDICAID, SELFPAY ==
[2022-09-02 19:08] VITALS: BP 140/100; PULSE 84; RESP 16; TEMP 36.2; O2SAT 97; BMI 29.0
[2022-09-02 19:45] LABS: Absolute Lymphocyte Count 2.88 X10^3/uL (0.83-4.51); Absolute Neutrophil Count 4.9 X10^3/uL (2.0-7.7); Basophil# 0.07 X10^3/uL; Basophil% 0.8 % (0-1); Eosinophil# 0.26 X10^3/uL; Hematocrit 41.4 % (37-47); Hemoglobin 13.4 g/dL (12.0-15.0); Lymphocyte # 2.88 X10^3/ul (0.83-4.51); Lymphocyte % 32.7 % (19-41); Mean Corp Hgb Conc 32.4 g/dL (32-36); Mean Corpuscular Hgb 31.2 pg (27.0-32.0); Mean Corpuscular Volume 96.3 fL (81-99); Mean Platelet Vol. 9.2 fl (6.2-12.0); Monocyte# 0.69 X10^3/uL; Monocyte% 7.8 % (0-10); NRBC Flagged by Analyzer 0 % (0-5); Neutrophil # 4.86 X10^3/uL (2.7-7.7); Neutrophil % 55.2 % (47-70); Platelet Count 259 K/mm3 (150-450); RBC Distribution Width CV 13.2 % (11.6-14.6); RBC Distribution Width SD 46.5 fl (35.1-43.9); White Blood Count 8.8 K/mm3 (4.4-11.0)
[2022-09-02 19:59] LABS: Anion Gap 3 (5-15); BUN 14 mg/dL (7-18); BUN/Creat Ratio 18.7 RATIO (10-20); Calcium,Total 9.2 mg/dL (8.5-10.1); Chloride 112 mmol/L (98-107); Creatinine, Serum 0.75 mg/dL (0.55-1.02); EST Glomerular Filtration Rate 83 mL/min (>60); Est Glom Filt Rate - Afr Amer 100 mL/min (>60); Estimated Creatinine Clearance 70.01 ml/min; Glucose 98 mg/dL (74-106); Potassium 3.8 mmol/L (3.5-5.1); Sodium Level 143 mmol/L (136-145)
--- NOTE | 2022-09-02 20:01 | EX.ED.DYSGE1 ---
HPI History of Present Illness Chief Complaint: Abd Pain Detail of Chief Complaint: Not feeling well Informant: patient Narrative Narrative: Patient presents the emergency department with multiple complaints and states she just not been feeling well and she feels like there is something wrong. Patient has been seen in the emergency department multiple times for similar complaints. Patient states that she feels shaky and sweaty at times and she describes upper right abdominal pain as well as left upper abdominal pain at times. She denies any chest pain. Patient denies fevers. She also complains of her urine being very clear and at times foamy which is been going on for months. She denies dysuria or urgency or frequency. She denies hematuria. Patient denies chest pain or shortness of breath. [facility] Medical History Anxiety and depression Atherosclerotic heart disease of [place] coronary artery without angina pectoris Calculus of left kidney COPD (chronic obstructive pulmonary disease) Depression Essential hypertension GERD (gastroesophageal reflux disease) History of non-ST elevation myocardial infarction (NSTEMI) (09/01/21) Hyperlipidemia Ischemic cardiomyopathy Kidney stones Myocardial infarct Obesity (BMI 30.0-34.9) Old anterior wall myocardial infarction Opiate dependence EVELYN (obstructive sleep apnea) Osteoporosis Personal history of transient ischemic attack (TIA), and cerebral infarction without residual deficits Smoker Sustained SVT TIA (transient ischemic attack) Tobacco abuse Home Medications lorazepam 1 mg tablet 1 mg PO BID PRN PRN Anxiety 06/15/21 [History Last Taken Unknown] gabapentin 300 mg capsule 300 mg PO TID nerve pain #90 caps 01/01/22 [Rx Last Taken 08/11/22] amiodarone 200 mg tablet 200 mg PO 08,1999 #180 tabs 06/04/22 [Rx Last Taken Unknown] atorvastatin 40 mg tablet (Lipitor) 40 mg PO QHS #90 tabs 06/04/22 [Rx Last Taken Unknown] carvedilol 6.25 mg tablet 6.25 mg PO BID #90 tabs 06/04/22 [Rx Last Taken Unknown] furosemide 20 mg tablet 20 mg PO BIDLX #180 tabs 06/04/22 [Rx Last Taken Unknown] lisinopril 2.5 mg tablet 2.5 mg PO BID #180 tabs 06/04/22 [Rx Last Taken 08/11/22] paroxetine HCl 20 mg tablet 20 mg PO DAILY 10/03/22 [History Last Taken Unknown] ondansetron 4 mg disintegrating tablet 4 mg PO Q8H PRN nausea and vomiting #10 tabs 08/03/22 [Rx Last Taken Unknown] clopidogrel 75 mg tablet (Plavix) 75 mg PO DAILY #30 tabs 08/04/22 [Rx Last Taken Unknown] rivaroxaban 20 mg tablet (Xarelto) 20 mg PO DAILY #30 tabs 08/05/22 [Rx Last Taken 08/08/22] pantoprazole 40 mg tablet,delayed release (Protonix) 40 mg PO DAILY #30 tabs 08/08/22 [Rx Last Taken Unknown] ondansetron 4 mg disintegrating tablet 4 mg PO Q8H PRN nausea and vomiting #10 tabs 08/16/22 [Rx Last Taken Unknown] ondansetron 4 mg disintegrating tablet 4 mg PO Q8H PRN nausea and vomiting #10 tabs 08/23/22 [Rx Last Taken Unknown] sucralfate 100 mg/mL oral suspension (Carafate) 10 ml PO Q6H #1,000 mL 08/30/22 [Rx Last Taken Unknown] Allergy/AdvReac Type Severity Reaction Status Date / Time No Known Allergies Allergy Verified 09/02/22 20:03 Family History Mother Hypertension CAD (coronary artery disease) CVA (cerebral vascular accident) Myocardial infarction Grandmother Myocardial infarction Surgical History History of hysterectomy History of left heart catheterization (01/20/22) History of total hysterectomy Hx of appendectomy Social History Smoking Status: Current some day smoker tobacco type: cigarettes alcohol intake: never substance use type: does not use ROS ROS ED Review of Systems ROS Unobtainable: other Constitutional Constitutional ED: Reports lethargy; Denies chills, fever(s), sweats or weight loss Eyes Eyes: Denies blurry vision, change in vision or diplopia ENT ENT ED: Denies rhinorrhea or sore throat Cardiovascular Cardiovascular: Denies chest pain, orthopnea or racing heartbeat Respiratory/Chest Respiratory/Chest: Denies cough, dyspnea, dyspnea on exertion, orthopnea or sputum Gastrointestinal Gastrointestinal: Reports abdominal pain; Denies diarrhea, nausea or vomiting Genitourinary Genitourinary ED: Reports other Details: Foamy urine ; Denies dysuria, hematuria or urinary frequency Musculoskeletal Musculoskeletal: Denies arthralgias, back pain, myalgias or neck pain Integumentary Denies abscess, Abrasions or rash Neurologic Neurologic: Denies headache(s) or weakness Psychiatric Psychiatric: Denies anxiety, depression or suicidal thoughts Endocrine Endocrinology: Denies polydipsia, polyphagia or polyuria Hematologic/Lymphatic Hematologic/Lymphatic: Denies easy bleeding, easy bruising or lymphadenopathy Allergic/Immunologic Allergic/Immunologic ED: Denies mouth swelling, tongue swelling or urticaria EXAM Physical Exam Const Vital Signs: 09/02/22 19:08 Temperature 97.2 F L Temperature Source Temporal Pulse Rate 84 Respiratory Rate 16 Blood Pressure 140/100 H Blood Pressure Mean 113 Pulse Ox 97 Oxygen Delivery Method Room Air Positive well nourished and well developed General Appearance ED: well developed and NAD HEENT Reports TM's clear and moist mucous membranes normocephalic and atraumatic; Negative for trauma or tenderness Tympanic Membrane ED: Yes TM's clear Eyes PERRL and EOMs intact bilaterally General Eye ED: Negative for pale conjunctiva or scleral icterus Neck no lymphadenopathy, supple and no JVD General: Negative for tenderness Chest Wall inspection of chest normal and palpation of chest normal Chest: Negative for tenderness Resp normal respiratory effort and clear to auscultation bilaterally Effort and Inspection: Negative for respiratory distress or pain with movement Auscultation: Negative for rhonchi, wheezes or diminished lung sounds Cardio regular rate, regular rhythm, S1 normal heart sound, S2 normal heart sound and no murmurs Peripheral Pulses: pulses 2+ throughout GI normal to inspection, nondistended, normoactive bowel sounds, soft to palpation, non-distended and no masses GI Narrative: Mild diffuse tenderness throughout. There is no rebound, rigidity, or. Signs Back/Spine no CVA tenderness and no thoracic nor lumbar tenderness Extremity normal to inspection General Extremety ED: Negative for edema General Extremity: Negative for edema Neuro oriented x3, CN's II-XII intact bilaterally, no sensory deficits noted and gait normal Sensorium / Orientation: awake, alert, oriented to person, oriented to place and oriented to time Motor Exam: strength 5/5 throughout and strength abnormal Psych mental status grossly normal Skin no rashes or lesions noted and no wounds MDM MDM MDM Narrative Medical decision making narrative: Sepsis arrival. Patient was given Ativan 1 mg IV. Patient did feel improved. Lab work-up was normal. EKG obtained showed sinus rhythm with nonspecific ST changes with a rate of 83 bpm. Lactate was normal 1.8. LFTs were normal other than a slightly elevated alk phos of 124 which is chronic. Urinalysis unremarkable. Patient had a recent CTA of her chest within the last couple days that was essentially unremarkable for PE or acute process. Patient's had recent CT scan imaging of her abdomen as well as ultrasound of the gallbladder which was also unremarkable. Clinically she has a benign abdomen and I do not feel she needs any further imaging. Patient in agreement. Patient advised to follow-up with her primary care physician 3 to 5 days. Etiology of her symptoms unclear. Lab Data Attestation: I reviewed the patient's lab results. Labs: Laboratory Results - last 24 hr 09/02/22 09/02/22 09/02/22 19:38 19:38 20:12 WBC 8.8 RBC 4.30 Hgb 13.4 Hct 41.4 MCV 96.3 MCH 31.2 MCHC 32.4 RDW Std Deviation 46.5 H RDW Coeff of Sariah 13.2 Plt Count 259 MPV 9.2 Immature Gran % (Auto) 0.500 Neut % (Auto) 55.2 Lymph % (Auto) 32.7 [place] % (Auto) 7.8 Eos % (Auto) 3.0 Baso % (Auto) 0.8 Absolute Neuts (auto) 4.9 Absolute Lymphs (auto) 2.88 Nucleated RBC % 0 Sodium 143 Potassium 3.8 Chloride 112 H Carbon Dioxide 28.0 Anion Gap 3 L BUN 14 Creatinine 0.75 Estim Creat Clear Calc 70.01 Est GFR (MDRD) Af Amer 100 Est GFR (MDRD) Non-Af 83 BUN/Creatinine Ratio 18.7 Glucose 98 Lactic Acid 0.8 Calcium 9.2 Total Bilirubin 0.20 AST 13 L ALT 13 Alkaline Phosphatase 124 H Total Protein 7.1 Albumin 3.6 Globulin 3.5 Albumin/Globulin Ratio 1.0 Urine Color Urine Clarity Urine pH Ur Specific [place] Urine Protein Urine Glucose (UA) Urine Ketones Urine Occult Blood Urine Nitrite Urine Bilirubin Urine Urobilinogen Ur Leukocyte Esterase 09/02/22 21:19 WBC RBC Hgb Hct MCV MCH MCHC RDW Std Deviation RDW Coeff of Sariah Plt Count MPV Immature Gran % (Auto) Neut % (Auto) Lymph % (Auto) [place] % (Auto) Eos % (Auto) Baso % (Auto) Absolute Neuts (auto) Absolute Lymphs (auto) Nucleated RBC % Sodium Potassium Chloride Carbon Dioxide Anion Gap BUN Creatinine Estim Creat Clear Calc Est GFR (MDRD) Af Amer Est GFR (MDRD) Non-Af BUN/Creatinine Ratio Glucose Lactic Acid Calcium Total Bilirubin AST ALT Alkaline Phosphatase Total Protein Albumin Globulin Albumin/Globulin Ratio Urine Color Yellow Urine Clarity Sl. Cloudy Urine pH 5.0 Ur Specific [place] 1.020 Urine Protein Negative Urine Glucose (UA) Normal Urine Ketones Negative Urine Occult Blood 25 H Urine Nitrite Negative Urine Bilirubin Negative Urine Urobilinogen Normal Ur Leukocyte Esterase 25 H Discharge Plan Triage Chief Complaint: Abd Pain ED Provider: Keisha Williamson Dx/Rx/DC Orders Clinical Impression: Abdominal pain, Weakness, Anxiety Instructions: ED Abdominal Pain Unkn Cause Fem, ED Anxiety Reaction, ED Weakness (Uncertain Cause) Prescriptions: No Action Xarelto 20 mg tablet 20 mg PO DAILY Qty: 30 0RF Rx Instructions: must administer with evening meal lorazepam 1 mg tablet 1 mg PO BID PRN PRN (Reason: Anxiety) Label Comments: take 1 tablet by mouth twice a day if needed gabapentin 300 MG capsule 300 mg PO TID Qty: 90 0RF paroxetine HCl 20 mg tablet 20 mg PO DAILY ondansetron 4 mg tablet,disintegrating 4 mg PO Q8H PRN (Reason: nausea and vomiting) Qty: 10 0RF clopidogrel [Plavix] 75 mg tablet 75 mg PO DAILY Qty: 30 0RF pantoprazole [Protonix] 40 mg tablet,delayed release (DR/EC) 40 mg PO DAILY Qty: 30 0RF ondansetron 4 mg tablet,disintegrating 4 mg PO Q8H PRN (Reason: nausea and vomiting) Qty: 10 0RF sucralfate [Carafate] 100 mg/mL suspension 10 ml PO Q6H Qty: 1000 0RF Rx Instructions: x 2 weeks amiodarone 200 mg tablet 200 mg PO 0800,2000 Qty: 180 3RF atorvastatin [Lipitor] 40 mg tablet 40 mg PO QHS Qty: 90 3RF carvedilol 6.25 mg tablet 6.25 mg PO BID Qty: 90 3RF lisinopril 2.5 mg tablet 2.5 mg PO BID Qty: 180 3RF furosemide 20 mg tablet 20 mg PO BIDLX Qty: 180 3RF ondansetron 4 mg tablet,disintegrating 4 mg PO Q8H PRN (Reason: nausea and vomiting) Qty: 10 0RF Primary Care Provider: Sudhir Ochoa Referrals: Sudhir Ochoa MD [Primary Care Provider] - 3-5 Days Disposition Disposition: Home, Self Care
[2022-09-02] MEDS: LORazepam 2 MG/ML Syringe 1 MG IV (20:16)
[2022-09-02 20:40] LABS: AST(SGOT) 13 U/L (15-37); Alanine Aminotransfer ALT/SGPT 13 U/L (13-56); Albumin, Serum 3.6 g/dL (3.2-5.0); Alkaline Phosphatase 124 U/L (45-117); Globulin 3.5 g/dL (2.2-4.2); Protein, Total 7.1 g/dL (6.4-8.2)
[2022-09-02] MEDS: 0.9% Normal Saline 1,000 ML 125 ML IV (20:45)
[2022-09-02 20:56] LABS: Lactic Acid 0.8 mmol/L (0.4-1.9)
[2022-09-02 21:23] LABS: Bacteria 0 SEEN /hpf (None Seen); Mucous, Urine 0 SEEN /hpf (<or=2+)
[2022-09-02 21:26] LABS: Color, Urine Yellow (Yellow); Glucose, Dipstick Normal (Normal); Ketone-Dipstick Negative (Negative); Leukocyte Esterase-Dipstick 25 /ul (Negative); Nitrite-Dipstick Negative (Negative); Occult Blood-Urine 25 /ul (Negative); Protein-Dipstick Negative (Negative); Urine Bilirubin Dipstick Negative (Negative); Urine Clarity Sl. Cloudy (Clear); Urine Urobilinogen Normal (Normal)
[2022-09-02 21:40] VITALS: RESP 18
[2022-09-02 22:10] LABS: Red Blood Cells-Urine 0-5 SEEN /hpf (0-5); Squamous Epithelial Cells - UA 0-5 SEEN /hpf (5-10); White Blood Cells 0-5 SEEN /hpf (0-5)
== END 2022-09-02 21:55 | disposition home or self-care (01) ==
PROVIDERS: Emergency Provider Emergency Medicine; PCP Internal Medicine; Visit Provider Emergency Medicine
DX: R10.9 Unspecified abdominal pain (principal); R53.1 Weakness; F41.9 Anxiety disorder, unspecified; I25.10 Atherosclerotic heart disease of native coronary artery without angina pectoris; I25.2 Old myocardial infarction; G47.33 Obstructive sleep apnea (adult) (pediatric); F17.210 Nicotine dependence, cigarettes, uncomplicated; Z86.73 Personal history of transient ischemic attack (TIA), and cerebral infarction without residual deficits
CPT/HCPCS: 80048; 80053; 81001; 83605; 85025; 93005; 96361; 96374; 99285

== ENCOUNTER → 2022-09-17 | Outpatient (CLI) | payer MEDICARE, MEDICAID, SELFPAY ==
[2022-09-17 14:36] LABS: BNP,B-Type NATRIURETIC PEPTIDE 91.9 pg/mL (0-100)
== END | disposition home or self-care (01) ==
LOC: PAVLAB 13:53
PROVIDERS: PCP Internal Medicine; Referring Provider Internal Medicine; Visit Provider Internal Medicine
DX: R06.02 Shortness of breath (principal); I25.5 Ischemic cardiomyopathy
CPT/HCPCS: 36415; 83880

== ENCOUNTER 2022-09-30 21:33 | Emergency (ER) | payer MEDICARE, MEDICAID, SELFPAY ==
[2022-09-30 21:34] VITALS: BP 182/101; PULSE 78; RESP 16; TEMP 36.4; O2SAT 98; BMI 30.1
[2022-09-30 21:44] VITALS: BP 182/101; PULSE 84; RESP 16; O2SAT 98
--- NOTE | 2022-09-30 21:58 | EDS_ITS ---
HPI History of Present Illness Chief Complaint: General Illness Detail of Chief Complaint: Multiple Informant: patient Onset/Context/Timing Onset: Days Context: Sudden Onset Timing: Continuous Quality: Tingling arms and feet and left flank pain Location: Upper and lower extremity and flank Current Severity: Unable to determine. Patient became tearful and anxious Maximum Severity: Unable to determine Worsened by: Possibly anxiety Relieved by: Nothing Associated Symptoms Associated Symptoms: Foam when she urinates: she denies passing gas when she urinates Narrative Narrative: Patient is a 66-year-old woman with history of atherosclerotic heart disease, PAD, ischemic cardiomyopathy, essential hypertension, hyperlipidemia and tobacco use. When asked why she came to the emergency room she said her arms and hands were tingling. She then endorsed bilateral feet numbness. She then began to cry and is anxious and seemed frazzled. Asked why she is anxious and she states she has been sick for 2 months and does not want to be sick. She also informed me that when she urinates she has foam come out and she has left flank pain. Patient denied fever become reported shakes. She states they were not chills. She denies headache, visual, ocular auditory symptoms. She denies trouble speech or swallowing. She denies chest discomfort of any type. She denies dyspnea, [place] exertion, orthopnea or PND. She denies abdominal pain, nausea, vomiting or diarrhea. She denies rash or any lesions. Prior similar symptoms: No Recent Illness/Hospitalization: No [facility] Medical History Anxiety and depression Atherosclerotic heart disease of bois forte coronary artery without angina pectoris Calculus of left kidney COPD (chronic obstructive pulmonary disease) Depression Essential hypertension GERD (gastroesophageal reflux disease) History of non-ST elevation myocardial infarction (NSTEMI) (09/01/21) Hyperlipidemia Ischemic cardiomyopathy Kidney stones Myocardial infarct Obesity (BMI 30.0-34.9) Old anterior wall myocardial infarction Opiate dependence EVELYN (obstructive sleep apnea) Osteoporosis Personal history of transient ischemic attack (TIA), and cerebral infarction without residual deficits Smoker Sustained SVT TIA (transient ischemic attack) Tobacco abuse Home Medications lorazepam 1 mg tablet 1 mg PO BID PRN PRN Anxiety 06/15/21 [History Last Taken Unknown] gabapentin 300 mg capsule 300 mg PO TID nerve pain #90 caps 01/01/22 [Rx Last Taken 08/11/22] amiodarone 200 mg tablet 200 mg PO 08,1999 #180 tabs 06/04/22 [Rx Last Taken Unknown] atorvastatin 40 mg tablet (Lipitor) 40 mg PO QHS #90 tabs 06/04/22 [Rx Last Taken Unknown] carvedilol 6.25 mg tablet 6.25 mg PO BID #90 tabs 06/04/22 [Rx Last Taken Unknown] furosemide 20 mg tablet 20 mg PO BIDLX #180 tabs 06/04/22 [Rx Last Taken Unknown] lisinopril 2.5 mg tablet 2.5 mg PO BID #180 tabs 06/04/22 [Rx Last Taken 08/11/22] paroxetine HCl 20 mg tablet 20 mg PO DAILY 06/09/22 [History Last Taken Unknown] clopidogrel 75 mg tablet (Plavix) 75 mg PO DAILY #30 tabs 08/04/22 [Rx Last Taken Unknown] pantoprazole 40 mg tablet,delayed release (Protonix) 40 mg PO DAILY #30 tabs 08/08/22 [Rx Last Taken Unknown] ondansetron 4 mg disintegrating tablet 4 mg PO Q8H PRN nausea and vomiting #10 tabs 08/16/22 [Rx Last Taken Unknown] sucralfate 100 mg/mL oral suspension (Carafate) 10 ml PO Q6H #1,000 mL 08/30/22 [Rx Last Taken Unknown] rivaroxaban 20 mg tablet (Xarelto) See Rx Instructions .Route .COMPLEX #30 tabs 09/17/22 [Rx Last Taken Unknown] nicotine 10 mg/mL nasal spray 1 spray intranasal DAILY #40 mL 09/19/22 [Rx Last Taken Unknown] Allergy/AdvReac Type Severity Reaction Status Date / Time No Known Allergies Allergy Verified 09/30/22 21:46 Family History Mother Hypertension CAD (coronary artery disease) CVA (cerebral vascular accident) Myocardial infarction Grandmother Myocardial infarction Surgical History History of hysterectomy History of left heart catheterization (01/20/22) History of total hysterectomy Hx of appendectomy Social History (Updated 09/30/22 @ 22:[address] Clyde Serrano MD) household members: none Smoking Status: Current some day smoker tobacco type: cigarettes alcohol intake: never substance use type: does not use ROS ROS ED Constitutional Constitutional ED: Denies chills, fever(s), subjective, sweats or weight loss Eyes Eyes: Denies blurry vision, change in vision or diplopia ENT ENT ED: Denies ear pain, rhinorrhea or sore throat Cardiovascular Cardiovascular: Denies chest pain, orthopnea, palpitations, paroxysmal nocturnal dyspnea or racing heartbeat Respiratory/Chest Respiratory/Chest: Denies cough, dyspnea, dyspnea on exertion, orthopnea or paroxysmal nocturnal dyspnea Gastrointestinal Gastrointestinal: Denies abdominal pain, diarrhea, melena, nausea or vomiting Genitourinary Genitourinary ED: Reports other Details: Per HPI narrative ; Denies dysuria, hematuria or urinary frequency Musculoskeletal Musculoskeletal: Reports other Details: Left flank pain ; Denies arthralgias, back pain, myalgias or neck pain Integumentary Denies abscess or rash Neurologic Neurologic: Reports paresthesias; Denies headache(s) or weakness Psychiatric Psychiatric: Reports anxiety and depression Endocrine Endocrinology: Denies cold intolerance, heat intolerance, polydipsia or polyuria Hematologic/Lymphatic Hematologic/Lymphatic: Reports systems reviewed and no addt'l complaints, except as documented EXAM Physical Exam Const Vital Signs: 09/30/22 21:34 09/30/22 21:44 09/30/22 21:46 Temperature 97.5 F L Temperature Source Temporal Pulse Rate 78 84 Respiratory Rate 16 16 Respiratory Effort Short of Breath Labored Respiratory Pattern Normal Blood Pressure 182/101 H 182/101 H Blood Pressure Mean 128 128 Pulse Ox 98 98 Oxygen Delivery Method Room Air Room Air Positive well nourished and well developed Constitutional Narrative: Very anxious and labile emotions with tear. General Appearance ED: well developed and pallor; Negative for cyanotic or diaphoretic HEENT Reports moist mucous membranes HEENT Narrative: Head is atraumatic normocephalic. Ears normal. Nares patent. Uvula midline. No deviation with protrusion. No erythema or exudate the posterior pharynx. Eyes PERRL and EOMs intact bilaterally Eyes Narrative: There is no nystagmus. General Eye ED: Negative for pale conjunctiva or scleral icterus Neck no lymphadenopathy, supple and no JVD Chest Wall inspection of chest normal and palpation of chest normal Resp normal respiratory effort and clear to auscultation bilaterally Cardio regular rate, regular rhythm, S1 normal heart sound, S2 normal heart sound and no murmurs GI normal to inspection, nondistended, normoactive bowel sounds, non-tender, non- distended and no masses; Negative for hepatosplenomegaly Palpation: soft Back/Spine General Back: CVA tenderness left Cervical Spine: Negative for cervical spine tenderness Thoracic Spine / Upper Back: Negative for thoracic spinal tenderness Lumbar Spine / Lower Back: Negative for lumbar spinal tenderness Extremity normal to inspection General Extremety ED: Negative for edema or tenderness General Extremity: Negative for edema Neuro oriented x3, CN's II-XII intact bilaterally and no sensory deficits noted Neuro Narrative: There is no dysmetria. Reflexes are 1+ at the bicep, tricep, brachialis, patella and ankle. There is no clonus. There is no Babinski sign. Sensorium / Orientation: alert Motor Exam: strength 5/5 throughout Psych mental status grossly normal Skin no rashes or lesions noted, no wounds and No skin turgor normal General Skin Exam: pallor; Negative for elasticity normal or jaundice MDM MDM MDM Narrative Medical decision making narrative: Difficult to assess due to anxiety and labile emotions. With bilateral upper extremity numbness and numbness of her feet doubt stroke. Concerned this may represent anxiety and hyperventilation syndrome. Patient had equivocal [place] sign. Will obtain basic metabolic panel to assess for electrolytes and specifically calcium. CBC to assess white count and differential. Because of her complaint of foam when she urinates a straight cath was obtained to assess for UTI. If there is evidence infection with flank pain she may have a subclinical course of pyelonephritis. Patient's blood pressure is elevated. However with her having bilateral upper and lower extremity paresthesia this is not consistent with stroke especially since she has a nonfocal neurologic exam. The more, do not believe this is due to hypertension. Review of outside note for cardiac and pulmonary evaluation revealed the following: Cardiac catheterization 09/02/2021: Elevated LVEDP 32 mmHg, moderate segmented LV systolic dysfunction, left ventricular ejection fraction by LV gram 25%, bois [place]te multivessel coronary artery disease.? Recommendations including risk factor modification, medical therapy. Right upper quadrant ultrasound August 08, 2022?was normal. Echocardiogram 01/17/2022: Moderately dilated LV, severe segmental systolic dysfunction.? Ejection fraction 20%. Dyskinetic right ventricular apex, moderate segmental dysfunction of the right ventricle. Enlarged left atrium, mild focal mitral valve calcification of the posterior leaflet, with 3+ mitral valve insufficiency. Mild tricuspid valve insufficiency, mild focal aortic valve calcification, no evidence of tamponade or significant effusion. CT angio revealed no evidence of pulmonary embolus. There was a small aortic aneurysm noted. Size was approximately 3 cm. Since patient has a nonfocal neurologic exam with upper and lower extremity paresthesia and labile emotions suspect this is due to anxiety. Plan is to discharge to home to follow-up with her primary care physician. Lab Data Attestation: I reviewed the patient's lab results. Lab results narrative: White count is normal. Patient has a lymphocytosis. Basic metabolic panel [place] slight elevation of creatinine from baseline at 1.08 with a GFR of 54 per urine is positive for ketones, blood, nitrites and leukoesterase on macro. Micro reveals no red cells, no white cells and no bacteria. Since this was a straight cath specimen will send urine for culture. Since there is no pyuria or bacteria will not treat with antibiotics. Labs: Laboratory Results - last 24 hr 09/30/22 09/30/22 09/30/22 21:22 21:22 22:23 WBC 7.7 RBC 4.87 Hgb 15.4 H Hct 46.2 MCV 94.9 MCH 31.6 MCHC 33.3 RDW Std Deviation 45.0 H RDW Coeff of Sariah 12.9 Plt Count 299 MPV 9.3 Immature Gran % (Auto) 0.400 Neut % (Auto) 44.9 L Lymph % (Auto) 43.3 H [place] % (Auto) 8.4 Eos % (Auto) 2.1 Baso % (Auto) 0.9 Absolute Neuts (auto) 3.5 Absolute Lymphs (auto) 3.35 Nucleated RBC % 0 Sodium 140 Potassium 3.8 Chloride 107 Carbon Dioxide 28.0 Anion Gap 5 BUN 19 H Creatinine 1.08 H Estim Creat Clear Calc 48.62 Est GFR (MDRD) Af Amer 65 Est GFR (MDRD) Non-Af 54 L BUN/Creatinine Ratio 17.6 Glucose 95 Calcium 10.2 H Urine Color Yellow Urine Clarity Clear Urine pH 6.5 Ur Specific [place] 1.020 Urine Protein Negative Urine Glucose (UA) Normal Urine Ketones 5 H Urine Occult Blood 50 H Urine Nitrite Positive H Urine Bilirubin Negative Urine Urobilinogen Normal Ur Leukocyte Esterase 25 H Urine RBC 0 SEEN Urine WBC 0 SEEN Ur Squamous Epith Cells 5-10 SEEN Urine Bacteria 0 SEEN Urine Mucus 0 SEEN Discharge Plan Triage Chief Complaint: General Illness ED Provider: Clyde Serrano Dx/Rx/DC Orders Clinical Impression: Hypertension, Hyperlipidemia, Ischemic cardiomyopathy, Paresthesia of upper and lower extremities of both sides Instructions: ED Hypertension, Established, ED Paraesthesias Prescriptions: No Action lorazepam 1 mg tablet 1 mg PO BID PRN PRN (Reason: Anxiety) Label Comments: take 1 tablet by mouth twice a day if needed gabapentin 300 MG capsule 300 mg PO TID Qty: 90 0RF paroxetine HCl 20 mg tablet 20 mg PO DAILY clopidogrel [Plavix] 75 mg tablet 75 mg PO DAILY Qty: 30 0RF pantoprazole [Protonix] 40 mg tablet,delayed release (DR/EC) 40 mg PO DAILY Qty: 30 0RF sucralfate [Carafate] 100 mg/mL suspension 10 ml PO Q6H Qty: 1000 0RF Rx Instructions: x 2 weeks amiodarone 200 mg tablet 200 mg PO 0800,1999 Qty: 180 3RF atorvastatin [Lipitor] 40 mg tablet 40 mg PO QHS Qty: 90 3RF carvedilol 6.25 mg tablet 6.25 mg PO BID Qty: 90 3RF lisinopril 2.5 mg tablet 2.5 mg PO BID Qty: 180 3RF furosemide 20 mg tablet 20 mg PO BIDLX Qty: 180 3RF ondansetron 4 mg tablet,disintegrating 4 mg PO Q8H PRN (Reason: nausea and vomiting) Qty: 10 0RF Xarelto 20 mg tablet See Rx Instructions .ROUTE .COMPLEX Qty: 30 0RF Dose Instruction: TAKE 1 TABLET BY MOUTH DAILY WITH EVENING MEAL Rx Instructions: TAKE 1 TABLET BY MOUTH DAILY WITH EVENING MEAL nicotine 10 mg/mL spray,non-aerosol 1 spray intranasal DAILY Qty: 40 6RF Rx Instructions: administer into each nostril Primary Care Provider: Sudhir Ochoa Referrals: Sudhir Ochoa MD [Primary Care Provider] - 3-5 Days if not improving Disposition Disposition: Home, Self Care
[2022-09-30 22:07] LABS: Absolute Lymphocyte Count 3.35 X10^3/uL (0.83-4.51); Absolute Neutrophil Count 3.5 X10^3/uL (2.0-7.7); Basophil# 0.07 X10^3/uL; Basophil% 0.9 % (0-1); Eosinophil# 0.16 X10^3/uL; Eosinophils% 2.1 % (0-5); Hematocrit 46.2 % (37-47); Hemoglobin 15.4 g/dL (12.0-15.0); Lymphocyte # 3.35 X10^3/ul (0.83-4.51); Lymphocyte % 43.3 % (19-41); Mean Corp Hgb Conc 33.3 g/dL (32-36); Mean Corpuscular Hgb 31.6 pg (27.0-32.0); Mean Corpuscular Volume 94.9 fL (81-99); Mean Platelet Vol. 9.3 fl (6.2-12.0); Monocyte# 0.65 X10^3/uL; Monocyte% 8.4 % (0-10); NRBC Flagged by Analyzer 0 % (0-5); Neutrophil # 3.48 X10^3/uL (2.7-7.7); Neutrophil % 44.9 % (47-70); Platelet Count 299 K/mm3 (150-450); RBC Distribution Width CV 12.9 % (11.6-14.6); Red Blood Count 4.87 M/mm3 (4.2-5.4); White Blood Count 7.7 K/mm3 (4.4-11.0)
[2022-09-30 22:30] LABS: Anion Gap 5 (5-15); BUN 19 mg/dL (7-18); BUN/Creat Ratio 17.6 RATIO (10-20); Calcium,Total 10.2 mg/dL (8.5-10.1); Chloride 107 mmol/L (98-107); Creatinine, Serum 1.08 mg/dL (0.55-1.02); EST Glomerular Filtration Rate 54 mL/min (>60); Est Glom Filt Rate - Afr Amer 65 mL/min (>60); Estimated Creatinine Clearance 48.62 ml/min; Glucose 95 mg/dL (74-106); Potassium 3.8 mmol/L (3.5-5.1); Sodium Level 140 mmol/L (136-145)
[2022-09-30 22:38] LABS: Bacteria 0 SEEN /hpf (None Seen); Mucous, Urine 0 SEEN /hpf (<or=2+); Red Blood Cells-Urine 0 SEEN /hpf (0-5); White Blood Cells 0 SEEN /hpf (0-5)
[2022-09-30 22:44] LABS: Color, Urine Yellow (Yellow); Glucose, Dipstick Normal (Normal); Ketone-Dipstick 5 mg/dl (Negative); Leukocyte Esterase-Dipstick 25 /ul (Negative); Nitrite-Dipstick Positive (Negative); Occult Blood-Urine 50 /ul (Negative); Protein-Dipstick Negative (Negative); Urine Bilirubin Dipstick Negative (Negative); Urine Clarity Clear (Clear); Urine Urobilinogen Normal (Normal); Urine pH 6.5 (5.0 - 8.0)
[2022-09-30 22:50] LABS: Squamous Epithelial Cells - UA 5-10 SEEN /hpf (5-10)
[2022-09-30 23:31] VITALS: BP 130/89; PULSE 71; RESP 15; O2SAT 96
== END 2022-09-30 23:39 | disposition home or self-care (01) ==
PROVIDERS: Emergency Provider Emergency Medicine; PCP Internal Medicine; Visit Provider Emergency Medicine
DX: I10 Essential (primary) hypertension (principal); J44.9 Chronic obstructive pulmonary disease, unspecified; I73.9 Peripheral vascular disease, unspecified; I25.10 Atherosclerotic heart disease of native coronary artery without angina pectoris; R20.2 Paresthesia of skin; E78.5 Hyperlipidemia, unspecified; I25.5 Ischemic cardiomyopathy; F41.9 Anxiety disorder, unspecified; F32.A Depression, unspecified; K21.9 Gastro-esophageal reflux disease without esophagitis; I25.2 Old myocardial infarction; E66.9 Obesity, unspecified; G47.33 Obstructive sleep apnea (adult) (pediatric); M81.0 Age-related osteoporosis without current pathological fracture; Z86.73 Personal history of transient ischemic attack (TIA), and cerebral infarction without residual deficits; F17.210 Nicotine dependence, cigarettes, uncomplicated; Z79.899 Other long term (current) drug therapy; R10.9 Unspecified abdominal pain
CPT/HCPCS: 80048; 81001; 85025; 87086; 87088; 99284; P9612

== ENCOUNTER 2023-01-02 09:21 | Inpatient (IN) | payer MEDICARE, MEDICAID, SELFPAY ==
[2023-01-02] VITALS (12 sets, daily range): BP systolic 136–152; BP diastolic 82–108; PULSE 77–109; RESP 18–38; TEMP 36.5–37; O2SAT 93–97; BMI 31.0; BMI 31.5
--- NOTE | 2023-01-02 09:57 | RAD_ITS ---
STUDY: X-RAY CHEST REASON FOR EXAM: Female, 67 years old. Cough, dyspnea, wheezing TECHNIQUE: PA and lateral views of the chest. COMPARISON: Comparison is made with prior study dated August 23, 2022. FINDINGS: EKG electrodes are seen. Hyperinflation. There is a 2.1 sign of by 3 cm bulla seen on the lateral view anteriorly most likely in the medial aspect of the right middle lobe. There is no demonstrated pleural abnormality. Normal size heart. Normal mediastinum and dru. Normal visualized pulmonary arteries. There is atherosclerotic calcification of the aortic arch with tortuosity. There is demineralization of the osseous structures. Normal visualized ribs, clavicles, and shoulders. There is no demonstrated abnormality of the visualized soft tissue structures of the upper abdomen. RAD/Chest PA and Lateral IMPRESSION: Hyperinflation. No acute abnormality is seen. Electronically Signed: Desmond Mojica MD at 11:03 EDT ,
--- NOTE | 2023-01-02 09:57 | EKG12_ITS ---
Test Reason : Blood Pressure : / mmHG Vent. Rate : 072 BPM Atrial Rate : 072 BPM P-R Int : 130 ms QRS Dur : 098 ms QT Int : 408 ms P-R-T Axes : 056 007 086 degrees QTc Int : 446 ms Normal sinus rhythm Inferior infarct , age undetermined Anterolateral infarct , age undetermined Abnormal ECG Confirmed by SAMUEL MARTINEZ, TABATHA ([id number]), editor producer MICAH SALMERON ([id number]) on 01/05/2023 11:23:16 AM Referred By: Confirmed By:SANDRA BAKER MD
[2023-01-02] MEDS: Albuterol 2.5 MG/3 ML VIAL.NEB. INHALATION ×3 (10:11→10:54)
--- NOTE | 2023-01-02 10:14 | ED.VIS.DYS ---
HPI History of Present Illness Chief Complaint: Shortness of Breath Detail of Chief Complaint: Increasing shortness of breath over the past several days Informant: patient and family Onset/Context/Timing Onset: Days Context: gradual Timing: Continuous Quality: Positive for Dyspnea on exertion and Wheezing; Negative for Orthopnea or PND Current Severity: Moderate Maximum Severity: Severe Worsened by: Exertion and Coughing Relieved by: Nothing Associated Symptoms cough, fever and subjective; Negative for rhinorrhea, post nasal drip, ear pain, sore throat, chills, sweats, clear sputum, white sputum, yellow sputum or green sputum Chest Pain: Positive for Continuous (Left subclavicular region) and - (Pain) Narrative Narrative: Patient is a 67-year-old woman with history of atherosclerotic heart disease, ischemic cardiomyopathy, essential hypertension, hyperlipidemia, COPD and peripheral arterial disease who presents with increased shortness of breath. She received a DuoNeb in route. She states she has not been on prednisone in the last 3 to 6 months. She states she only smokes occasionally. Son who was in the room corrected her and acknowledged that she smokes 1 to 2 packs/day. She reports history of DVT. There is no record of DVT. Will review prior records determined this was a superficial clot and not a deep venous clot. Patient complains of subjective fever. She denies headache, visual, ocular auditory symptoms. She denies rhinorrhea, congestion postnasal drainage or sore throat. The pain that is located left subclavicular area/left shoulder does have a musculoskeletal reproducible component. She denies history of PE or pneumothorax. She denies leg pain, swelling or discoloration. She denies abdominal pain, black stool, maroon stool or any change in her bowels. She does have neuropathy which is presumed to be due to [id number] these. She does not have history of diabetes. She is presently on gabapentin. PE Risk Factors: Negative for Cancer, OCP + Smoking + > 35 or Recent immobilization Prior similar symptoms: Yes Recent Illness/Hospitalization: Yes [facility] Medical History Anxiety and depression Atherosclerotic heart disease of [place] coronary artery without angina pectoris Calculus of left kidney COPD (chronic obstructive pulmonary disease) Depression Essential hypertension GERD (gastroesophageal reflux disease) History of non-ST elevation myocardial infarction (NSTEMI) (09/01/21) Hyperlipidemia Ischemic cardiomyopathy Kidney stones Myocardial infarct Obesity (BMI 30.0-34.9) Old anterior wall myocardial infarction Opiate dependence EVELYN (obstructive sleep apnea) Osteoporosis Personal history of transient ischemic attack (TIA), and cerebral infarction without residual deficits Smoker Sustained SVT TIA (transient ischemic attack) Tobacco abuse Home Medications lorazepam 1 mg tablet 1 mg PO BID PRN PRN Anxiety 06/15/21 [History Last Taken Unknown] gabapentin 300 mg capsule 300 mg PO TID nerve pain #90 caps 01/01/22 [Rx Last Taken 08/11/22] amiodarone 200 mg tablet 200 mg PO 799,1999 #180 tabs 06/04/22 [Rx Last Taken Unknown] atorvastatin 40 mg tablet (Lipitor) 40 mg PO QHS #90 tabs 06/04/22 [Rx Last Taken Unknown] furosemide 20 mg tablet 20 mg PO BIDLX #180 tabs 06/04/22 [Rx Last Taken Unknown] lisinopril 2.5 mg tablet 2.5 mg PO BID #180 tabs 06/04/22 [Rx Last Taken 08/11/22] paroxetine HCl 20 mg tablet 20 mg PO DAILY 06/09/22 [History Last Taken Unknown] clopidogrel 75 mg tablet (Plavix) 75 mg PO DAILY #30 tabs 08/04/22 [Rx Last Taken Unknown] pantoprazole 40 mg tablet,delayed release (Protonix) 40 mg PO DAILY #30 tabs 08/08/22 [Rx Last Taken Unknown] ondansetron 4 mg disintegrating tablet 4 mg PO Q8H PRN nausea and vomiting #10 tabs 08/16/22 [Rx Last Taken Unknown] sucralfate 100 mg/mL oral suspension (Carafate) 10 ml PO Q6H #1,000 mL 08/30/22 [Rx Last Taken Unknown] rivaroxaban 20 mg tablet (Xarelto) See Rx Instructions .Route .COMPLEX #30 tabs 09/17/22 [Rx Last Taken Unknown] nicotine 10 mg/mL nasal spray 1 spray intranasal DAILY #40 mL 09/19/22 [Rx Last Taken Unknown] carvedilol 6.25 mg tablet 6.25 mg PO BID #60 tabs 12/05/22 [Rx Last Taken Unknown] Allergy/AdvReac Type Severity Reaction Status Date / Time No Known Allergies Allergy Verified 01/02/23 09:21 Family History Mother Hypertension CAD (coronary artery disease) CVA (cerebral vascular accident) Myocardial infarction Grandmother Myocardial infarction Surgical History History of hysterectomy History of left heart catheterization (01/20/22) History of total hysterectomy Hx of appendectomy Social History household members: none Smoking Status: Former smoker alcohol intake: never substance use type: does not use ROS ROS ED Constitutional Constitutional ED: Reports fever(s); Denies chills, sweats or weight loss Eyes Eyes: Denies blurry vision, change in vision or diplopia ENT ENT ED: Denies ear pain, rhinorrhea or sore throat Cardiovascular Cardiovascular: Reports chest pain; Denies orthopnea, palpitations, paroxysmal nocturnal dyspnea or racing heartbeat Respiratory/Chest Respiratory/Chest: Reports cough, dyspnea, dyspnea on exertion and other Details: Patient reports that she was able to walk 20 feet 2 months ago without becoming short of breath. Now she is only able to walk 10 feet. ; Denies orthopnea or paroxysmal nocturnal dyspnea Gastrointestinal Gastrointestinal: Denies abdominal pain, constipation, diarrhea, melena, nausea or vomiting Genitourinary Genitourinary ED: Denies dysuria, hematuria or urinary frequency Musculoskeletal Musculoskeletal: Denies arthralgias, back pain, myalgias or neck pain Integumentary Denies rash Neurologic Neurologic: Denies headache(s), paresthesias or weakness Psychiatric Psychiatric: Reports anxiety Endocrine Endocrinology: Denies cold intolerance or heat intolerance Hematologic/Lymphatic Hematologic/Lymphatic: Denies easy bleeding or easy bruising EXAM Physical Exam Const Vital Signs: 01/02/23 09:22 01/02/23 09:27 01/02/23 10:14 Temperature 97.7 F L Temperature Source Temporal Pulse Rate 82 81 Respiratory Rate 31 H 30 H Respiratory Effort Short of Breath Respiratory Depth Normal Respiratory Pattern Tachypnea Blood Pressure 142/89 H Blood Pressure Mean 106 Pulse Ox 96 Oxygen Delivery Method Room Air Room Air 01/02/23 10:29 01/02/23 11:48 01/02/23 11:48 Temperature 97.7 F L Temperature Source Temporal Pulse Rate 77 78 78 Respiratory Rate 38 H 26 H Respiratory Effort Respiratory Depth Respiratory Pattern Blood Pressure 152/89 H 151/108 H 151/108 H Blood Pressure Mean 110 122 Pulse Ox 94 95 Oxygen Delivery Method Room Air Room Air 01/02/23 11:54 Temperature Temperature Source Pulse Rate 84 Respiratory Rate Respiratory Effort Respiratory Depth Respiratory Pattern Blood Pressure 136/97 H Blood Pressure Mean Pulse Ox Oxygen Delivery Method Positive well nourished and well developed General Appearance ED: well developed; Negative for NAD or pallor HEENT Reports dry mucous membranes HEENT Narrative: Head is normocephalic. Ears normal. TMs normal. Nares patent without drainage. Posterior pharynx is normal. atraumatic Mouth ED: Yes dry mucous membranes Mouth: dry mucous membranes Eyes PERRL and EOMs intact bilaterally General Eye ED: Negative for pale conjunctiva or scleral icterus Neck no lymphadenopathy, supple, no meningeal signs and no JVD Chest Wall Chest Narrative: No chest wall abnormality. She does have reproducible pain on the left. Resp No normal respiratory effort and No clear to auscultation bilaterally Auscultation: wheezes expiratory wheezes, scattered wheezes and throughout Cardio regular rate, regular rhythm, S1 normal heart sound and S2 normal heart sound GI non-tender, non-distended and no masses Auscultation: normoactive bowel sounds Palpation: soft Back/Spine no CVA tenderness and normal to inspection Extremity normal to inspection General Extremety ED: Negative for edema or tenderness General Extremity: Negative for edema Neuro oriented x3, CN's II-XII intact bilaterally and no sensory deficits noted [place] Coma Scale: document GCS findings Spontaneous Obeys Commands Oriented 15 Sensorium / Orientation: alert Psych mental status grossly normal Skin no wounds and skin turgor normal General Skin Exam: Negative for jaundice or pallor MDM MDM MDM Narrative Medical decision making narrative: Patient presents with increasing shortness of breath. Patient has audible wheezes. Need to evaluate for pneumothorax, pneumonia, COPD exacerbation. With her left-sided chest pain will obtain EKG. History is not consistent or suggestive of cardiac disease. We will treat with opiate analgesic orally for her discomfort. NSAIDs are contraindicated since she is on anticoagulant. Patient received 60 mg of Solu-Medrol IV push and 3 albuterol treatments. She received a DuoNeb in route by paramedics. Patient reports no improvement with nitroglycerin. Patient was given aspirin. History & Record Review Discussion w/independent historian: Family Additional record(s) reviewed:: Prior outpatient record (Patient was diagnosed with DVT and is on anticoagulant, Xarelto.), Prior ED visit and Prior labs Lab Data Attestation: I reviewed the patient's lab results. Lab results narrative: Basic metabolic panel is unremarkable. Troponin is 613. Even the patient has atypical left-sided shoulder/chest pain this may represent cardiac ischemia. We will treat with aspirin and contact time signal wirer regarding antithrombotic and anticoagulant therapy. Review of records indicates she is on Plavix. Will confirm if she is taking her Plavix Labs: Laboratory Results - last 24 hr 01/02/23 09:30 Sodium 140 Potassium 4.3 Chloride 109 H Carbon Dioxide 31.0 Anion Gap 0 L BUN 26 H Creatinine 0.84 Estim Creat Clear Calc 61.67 Est GFR (MDRD) Af Amer 87 Est GFR (MDRD) Non-Af 72 BUN/Creatinine Ratio 31.0 H Glucose 99 Calcium 9.6 Troponin I High Sens 613 H* Radiography Chest X-Ray - ED: 1 View and Read by ED Physician (There are chronic changes noted. There is no evidence of pneumothorax or effusion. There is no infiltrate. Cardiac silhouette size unremarkable. There is evidence of hyperaeration. Osseous trucks unremarkable.) Diagnostic Testing: Clinical Impression(s) from Imaging Studies Chest X-Ray 01/02/23 09:57 IMPRESSION: Hyperinflation. No acute abnormality is seen. Electronically Signed: Desmond Mojica MD at 11:03 EDT , EKG Initial EKG: Attestation: I personally reviewed and interpreted this EKG as follows: Interpretation: Sinus Rhythm (Rate is 72. MI interval is 130 ms. QRS durations 98 ms. QT duration 408 ms. [place] is normal. Patient has abnormal ST segment which are biphasic in V1 and V2 she has a flipped T wave in aVL. Will need old EKG for comparison. In light of this EKG finding will obtain a troponin level.) Prior: Unchanged (September 02, 2022) Follow-up EKG: Attestation: I personally reviewed and interpreted this EKG as follows: Interpretation: Sinus Rhythm (Rate is 79. MI interval 128 ms. Cures duration 100 ms. QT duration 388 ms. [place] is normal. Patient has abnormalities. Described in V1 V2 and aVL. This is unchanged from prior.) Management Discussion w/another healthcare provider: Hospitalist (Spoke with Dr. Gloria Madrid. She was made aware of cardiology recommendation.), Ware Tester (Poke to Dr. Buck. He recommended cycling enzymes since patient is on aspirin, Plavix and anticoagulant.) and Other (Spoke with son. Had multiple discussions with patient) Critical Care Time Critical Care Time: Yes Critical care time (excluding procedures): 30-74 minutes (34), Including time spent: (History, physical, documentation, interpretation laboratory results), Discussing w/Patient &/or Family/Substance Abuse Counselor (Gayle with son and patient's several times regarding results and treatment.), Discussing w/Consultants (Documented under the MDM portion of the chart), Arranging Admission or Transfer and Performing Direct Patient Care at Bedside (Treatment with nitroglycerin.) Discharge Plan Triage Chief Complaint: Shortness of Breath ED Provider: Clyde Serrano Dx/Rx/DC Orders Clinical Impression: ACS (acute coronary syndrome), Hyperlipidemia, Ischemic cardiomyopathy, Essential hypertension, Acute exacerbation of chronic obstructive pulmonary disease, Acute bronchospasm Prescriptions: No Action lorazepam 1 mg tablet 1 mg PO BID PRN PRN (Reason: Anxiety) Label Comments: take 1 tablet by mouth twice a day if needed gabapentin 300 MG capsule 300 mg PO TID Qty: 90 0RF paroxetine HCl 20 mg tablet 20 mg PO DAILY clopidogrel [Plavix] 75 mg tablet 75 mg PO DAILY Qty: 30 0RF pantoprazole [Protonix] 40 mg tablet,delayed release (DR/EC) 40 mg PO DAILY Qty: 30 0RF sucralfate [Carafate] 100 mg/mL suspension 10 ml PO Q6H Qty: 1000 0RF Rx Instructions: x 2 weeks amiodarone 200 mg tablet 200 mg PO 0800,2000 Qty: 180 3RF atorvastatin [Lipitor] 40 mg tablet 40 mg PO QHS Qty: 90 3RF lisinopril 2.5 mg tablet 2.5 mg PO BID Qty: 180 3RF furosemide 20 mg tablet 20 mg PO BIDLX Qty: 180 3RF ondansetron 4 mg tablet,disintegrating 4 mg PO Q8H PRN (Reason: nausea and vomiting) Qty: 10 0RF Xarelto 20 mg tablet See Rx Instructions .ROUTE .COMPLEX Qty: 30 0RF Dose Instruction: TAKE 1 TABLET BY MOUTH DAILY WITH EVENING MEAL Rx Instructions: TAKE 1 TABLET BY MOUTH DAILY WITH EVENING MEAL nicotine 10 mg/mL spray,non-aerosol 1 spray intranasal DAILY Qty: 40 6RF Rx Instructions: administer into each nostril carvedilol 6.25 mg tablet 6.25 mg PO BID Qty: 60 12RF Primary Care Provider: Care Physician,No Primary Referrals: Sudhir Ochoa MD [Med Staff - Respiratory Scientist] - Disposition Disposition: Acute Care Hospital [facility]
[2023-01-02] MEDS: MethylPREDNISolone 125 MG/2 ML Vial 60 MG IV (10:30)
[2023-01-02] MEDS: HYDROcodone Bitartrate/Apap 5/325 Tablet PO (10:38)
[2023-01-02 10:52] LABS: Anion Gap 0 (5-15); BUN 26 mg/dL (7-18); Calcium,Total 9.6 mg/dL (8.5-10.1); Chloride 109 mmol/L (98-107); Creatinine, Serum 0.84 mg/dL (0.55-1.02); EST Glomerular Filtration Rate 72 mL/min (>60); Est Glom Filt Rate - Afr Amer 87 mL/min (>60); Estimated Creatinine Clearance 61.67 ml/min; Glucose 99 mg/dL (74-106); Potassium 4.3 mmol/L (3.5-5.1); Sodium Level 140 mmol/L (136-145); Troponin-I HS 613 pg/mL (3.0-54.0)
--- NOTE | 2023-01-02 11:00 | EKG12_ITS ---
Test Reason : REPEAT-CP Blood Pressure : / mmHG Vent. Rate : 079 BPM Atrial Rate : 079 BPM P-R Int : 128 ms QRS Dur : 100 ms QT Int : 388 ms P-R-T Axes : 060 013 088 degrees QTc Int : 444 ms Normal sinus rhythm Possible Inferior infarct , age undetermined Cannot rule out Anteroseptal infarct , age undetermined Abnormal ECG Confirmed by SAMUEL MARTINEZ, TABATHA ([id number]), science editor MICAH SALMERON ([id number]) on 01/05/2023 11:23:34 AM Referred By: DAVID Confirmed By:SANDRA BAKER MD
[2023-01-02] MEDS: Nitroglycerin SL (ED/IMG/CATH) 0.4 MG TABLET SL ×2 (11:48→11:54)
[2023-01-02] MEDS: Aspirin 81 MG TAB.CHEW 324 MG PO (12:03)
[2023-01-02] MEDS: Morphine 4 MG/ML Syringe IV (12:25)
[2023-01-02] MEDS: Famotidine 200 MG/20 ML MDV 20 MG in 0.9% Normal Saline (Pres. free 8 ML 300 MG IV (12:54)
--- NOTE | 2023-01-02 13:24 | PCM.HP.STD ---
HPI - General General Date of Admission: 01/02/23 Date of Service: 01/02/23 Chief Complaint: Shortness of breath HPI Narrative Marcia Mascorro is a 67-year-old female with a history of hypertension, COPD, peripheral vascular disease, ischemic cardiomyopathy, coronary artery disease, tobacco use who presented to [facility] 01/02/2023 with 4 to 5 days of increasing shortness of breath and chest pain. In ED had blood pressure 152/89 and a respiratory rate of 26 with O2 sat 95% on room air. Chest x-ray with no acute abnormality. She was given Methylpred and an albuterol treatment but it was discovered that her troponin came back elevated at 613 so cardiology was called who agreed with loading with aspirin and consult. Hospitalist consulted for admission. Evaluated patient at bedside with son present. Son provided part of the history as patient was very hard to direct. It seems she has chronic problems with swallowing, GERD with some chest pain, chronic abdominal and back pain, anxiety, chronic shortness of breath and a chronic cough but over the past 4 to 5 days she has had increased cough and wheezing and shortness of breath. After her cough and shortness of breath worsened and she began having chest pain she said it is worse when she coughs and had difficulty identifying other factors aside from possibly swallowing and said she does not want to eat or take medication but she feels like it sticks but upon further prompting it seems that this is sticking feeling may be chronic. Cough is not productive. Son thinks maybe her legs have been more swollen however she disagrees. She has problems with chronic floaters, possibly some headaches, chronic constipation and has felt more gassy recently. Towards the end of the conversation it was revealed that she has run out of some or all of her medicines over the past 1 to 2 months and does not seem she is taking any of these medications at this time. [facility] Medical History Anxiety and depression Atherosclerotic heart disease of pauma coronary artery without angina pectoris Calculus of left kidney COPD (chronic obstructive pulmonary disease) Depression Essential hypertension GERD (gastroesophageal reflux disease) History of non-ST elevation myocardial infarction (NSTEMI) (09/01/21) Hyperlipidemia Ischemic cardiomyopathy Kidney stones Myocardial infarct Obesity (BMI 30.0-34.9) Old anterior wall myocardial infarction Opiate dependence EVELYN (obstructive sleep apnea) Osteoporosis Personal history of transient ischemic attack (TIA), and cerebral infarction without residual deficits Smoker Sustained SVT TIA (transient ischemic attack) Tobacco abuse Home Medications lorazepam 1 mg tablet 1 mg PO BID PRN PRN Anxiety 06/15/21 [History Last Taken Unknown] gabapentin 300 mg capsule 300 mg PO TID nerve pain #90 caps 01/01/22 [Rx Last Taken 08/11/22] amiodarone 200 mg tablet 200 mg PO 0800,1999 #180 tabs 06/04/22 [Rx Last Taken Unknown] atorvastatin 40 mg tablet (Lipitor) 40 mg PO QHS #90 tabs 06/04/22 [Rx Last Taken Unknown] furosemide 20 mg tablet 20 mg PO BIDLX #180 tabs 06/04/22 [Rx Last Taken Unknown] lisinopril 2.5 mg tablet 2.5 mg PO BID #180 tabs 06/04/22 [Rx Last Taken 08/11/22] paroxetine HCl 20 mg tablet 20 mg PO DAILY 06/09/22 [History Last Taken Unknown] clopidogrel 75 mg tablet (Plavix) 75 mg PO DAILY #30 tabs 08/04/22 [Rx Last Taken Unknown] pantoprazole 40 mg tablet,delayed release (Protonix) 40 mg PO DAILY #30 tabs 08/08/22 [Rx Last Taken Unknown] ondansetron 4 mg disintegrating tablet 4 mg PO Q8H PRN nausea and vomiting #10 tabs 08/16/22 [Rx Last Taken Unknown] sucralfate 100 mg/mL oral suspension (Carafate) 10 ml PO Q6H #1,000 mL 08/30/22 [Rx Last Taken Unknown] rivaroxaban 20 mg tablet (Xarelto) See Rx Instructions .Route .COMPLEX #30 tabs 09/17/22 [Rx Last Taken Unknown] nicotine 10 mg/mL nasal spray 1 spray intranasal DAILY #40 mL 09/19/22 [Rx Last Taken Unknown] carvedilol 6.25 mg tablet 6.25 mg PO BID #60 tabs 12/05/22 [Rx Last Taken Unknown] Allergy/AdvReac Type Severity Reaction Status Date / Time No Known Allergies Allergy Verified 01/02/23 09:21 Family History Mother Hypertension CAD (coronary artery disease) CVA (cerebral vascular accident) Myocardial infarction Grandmother Myocardial infarction Surgical History History of hysterectomy History of left heart catheterization (01/20/22) History of total hysterectomy Hx of appendectomy Social History household members: none Smoking Status: Former smoker alcohol intake: never substance use type: does not use ROS ROS Narrative General: Denies fever/chills, reports she is feels better overall HENT: Sometimes has headaches EYES: Has chronic floaters and reports she needs glasses Resp: Has chronic dry cough that has been worsening and chronic shortness of breath which is also been worsening Cardiac: Chest pain present GI: Has chronic right lower abdominal pain, reports constipation chronically, has felt more gassy lately, no nausea or vomiting : Denies changes in urination Extremity: Does not think she has had any swelling MSK: Generalized weakness Neuro: Neuropathy in feet Heme: Denies any bleeding or bruising Skin: Denies rashes Psychiatric: Reports anxiety and panic attacks Vital Signs Vital Signs Vital Signs: 01/02/23 09:22 01/02/23 09:27 01/02/23 10:14 Temperature 97.7 F L Temperature Source Temporal Pulse Rate 82 81 Respiratory Rate 31 H 30 H Respiratory Effort Short of Breath Respiratory Depth Normal Respiratory Pattern Tachypnea Blood Pressure 142/89 H Blood Pressure Mean 106 Pulse Ox 96 Oxygen Delivery Method Room Air Room Air 01/02/23 10:29 01/02/23 11:48 01/02/23 11:48 Temperature 97.7 F L Temperature Source Temporal Pulse Rate 77 78 78 Respiratory Rate 38 H 26 H Respiratory Effort Respiratory Depth Respiratory Pattern Blood Pressure 152/89 H 151/108 H 151/108 H Blood Pressure Mean 110 122 Pulse Ox 94 95 Oxygen Delivery Method Room Air Room Air 01/02/23 11:54 Temperature Temperature Source Pulse Rate 84 Respiratory Rate Respiratory Effort Respiratory Depth Respiratory Pattern Blood Pressure 136/97 H Blood Pressure Mean Pulse Ox Oxygen Delivery Method Weight Weight: 87.7 kg Body Mass Index (BMI) 31.0 Physical Exam Narrative General: Alert, oriented, appears upset and anxious HEENT: Atraumatic, normocephalic Eyes: Anicteric, normal conjunctiva, extraocular movements grossly intact Neck: Supple Respiratory: Diffuse wheezes, slight increased work of breathing Cardiovascular: Regular rate and rhythm GI: Soft, nontender, nondistended Extremities: No edema appreciated Musculoskeletal: Moving all extremities Neuro: No overt focal neurological deficits Skin: No rashes appreciated Psych: Tearful and anxious Results Lab / Micro Data Result Diagrams: 01/02/23 09:30 01/02/23 09:30 Labs: Laboratory Results - last 24 hr 01/02/23 09:30: Sodium 140, Potassium 4.3, Chloride 109 H, Carbon Dioxide 31.0, Anion Gap 0 L, BUN 26 H, Creatinine 0.84, Estim Creat Clear Calc 61.67, Est GFR (MDRD) Af Amer 87, Est GFR (MDRD) Non-Af 72, BUN/Creatinine Ratio 31.0 H, Glucose 99, Calcium 9.6, Troponin I High Sens 613 H* Radiology Impression Chest X-Ray 01/02/23 09:57 IMPRESSION: Hyperinflation. No acute abnormality is seen. Electronically Signed: Desmond Mojica MD at 11:03 EDT , Assessment & Plan Assessment/Plan (1) Acute non-ST elevation myocardial infarction (NSTEMI): (2) Acute exacerbation of chronic obstructive pulmonary disease: PLAN: Plan #Shortness of breath -Suspect multifactorial given her noncompliance with home medication and that she ran out of all of her inhalers and her Lasix as well -Does have increasing shortness of breath and cough and has not used her inhalers so I do suspect possible acute exacerbation of COPD but difficult to exclude exacerbation of heart failure or coronary event -Chest x-ray with hyperinflation but no other acute abnormality, does not appear to have peripheral edema but is noted to have ischemic cardiomyopathy with heart failure with reduced ejection fraction and EF of 25% -Received Solu-Medrol and albuterol in ED -We will schedule nebs with albuterol as needed and will continue steroids and will add doxycycline -Check COVID, flu, respiratory panel -Check BNP -Resume home lasix -If elevated BNP or no improvement with treatment of a COPD will consider IV Lasix -Repeat echocardiogram -Daily weights, I's and O's, incentive spirometry -Patient has been out of her Xarelto but based on history and exam low suspicion for PE #Chest pain/NSTEMI -Difficult to assess type I versus type II given a COPD plus possible a CHF and chest pain that she has difficulty characterizing -Initial troponin elevated at 613 -Patient had difficulty characterizing her chest pain. She has some chronic pain diffusely and reports pain is worse when she is swallowing and coughing but sometimes is there when its not and can come and go but she had difficulty saying what else made it better or worse -Loaded with aspirin -EKG looks similar to previous in August -Cycle troponins -Does have a history of coronary artery disease and risk factors and continues to smoke -Had heart cath on 01/20/2022 with elevated LV EDP and pauma multivessel coronary artery disease with no intervention but advised risk factor modification and medical therapy -Cardiology consulted #HFrEF/chronic ischemic cardiomyopathy/CAD/PVD -Echo 01/17/2022 demonstrated an EF of 20% with moderately severe 3+ mitral valve insufficiency -Had heart cath on 01/20/2022 with elevated LV EDP and pauma multivessel coronary artery disease with no intervention but advised risk factor modification and medical therapy -Aspirin, resume Xarelto, cardiology consult, statin, lipid panel -Repeat echo -We will hold beta-cora as she has not been taking it and it is unclear yet if she is in exacerbation #GERD/Food sticking -IV PPI due to hesitant to to take too many medications as she feels things stuck in her throat sometimes -We will also order speech for formal swallow eval but will have bedside swallow initially to assess safety of taking any oral medication #COPD -See above #History of VTE -Seems there may have been a superficial thrombosis based on documentation but this is unclear and pt poor historian -Will attempt to asses indication further #Anxiety -She does fill Ativan regularly, will continue #Tobacco use -Advise cessation #DVT ppx: Xarelto CODE DISCUSSION: Asked patient about CODE STATUS in the emergency department. Son reported that he was her power of sports attorney and that there was going to be no DNR and that she was full code. Patient became tearful and said that that is not what she wanted. Educated that she is alert and oriented and there is no indication that she is not able to make her own medical decisions and that medical power of sports attorney only comes in to place when she is unable to do so. After further discussion patient wants to be DNR/DNI. Gloria Madrid MD Time spent in the patient's overall evaluation,decision-making process, review of diagnostic data, adjustment of management, discussion with other providers, nursing nursing and ancillary staff involved in patient's care documentation, 75 minutes Charges/Coding Visit Charges Inpatient E&M: 44028 Init Hosp L3
[2023-01-02 14:05] LABS: Absolute Lymphocyte Count 2.84 X10^3/uL (0.83-4.51); Absolute Neutrophil Count 3.3 X10^3/uL (2.0-7.7); Basophil# 0.11 X10^3/uL; Basophil% 1.4 % (0-1); Eosinophil# 1.08 X10^3/uL; Eosinophils% 13.7 % (0-5); Hematocrit 43.7 % (37-47); Hemoglobin 14.2 g/dL (12.0-15.0); Lymphocyte # 2.84 X10^3/ul (0.83-4.51); Lymphocyte % 36.1 % (19-41); Mean Corp Hgb Conc 32.5 g/dL (32-36); Mean Corpuscular Hgb 32.1 pg (27.0-32.0); Mean Corpuscular Volume 98.6 fL (81-99); Mean Platelet Vol. 9.7 fl (6.2-12.0); Monocyte# 0.52 X10^3/uL; Monocyte% 6.6 % (0-10); NRBC Flagged by Analyzer 0 % (0-5); Neutrophil # 3.29 X10^3/uL (2.7-7.7); Neutrophil % 41.8 % (47-70); Platelet Count 311 K/mm3 (150-450); RBC Distribution Width CV 12.3 % (11.6-14.6); Red Blood Count 4.43 M/mm3 (4.2-5.4); White Blood Count 7.9 K/mm3 (4.4-11.0)
--- NOTE | 2023-01-02 14:24 | ECHOCS_ITS ---
Reason For Study: CHF Procedure This was a 2D Doppler, Color Flow transthoracic echocardiogram. The study was technically difficult. Contrast injection was performed. Exam performed portable in patient room. Left Ventricle Moderately dilated left ventricle. LV apical thrombus. The estimated ejection fraction is 20 %. Stage 1 diastolic dysfunction. There is moderate to severe global hypokinesis of the left ventricle. Right Ventricle Normal RV size. Normal systolic function. Atria Normal left atrium. Normal right atrium. No doppler evidence for ASD. Mitral Valve There is moderate mitral annular calcification. There is no mitral valve stenosis. Trivial mitral valve insufficiency. Tricuspid Valve There is no tricuspid stenosis. Trivial tricuspid valve insufficiency. Unable to estimate RV systolic pressure due to insufficient tricuspid regurgitant envelope. Aortic Valve Aortic sclerosis, no stenosis. There is no aortic stenosis. No aortic valve insufficiency. Pulmonic Valve There is no pulmonic valvular stenosis. No pulmonic valve insufficiency. Great Vessels Normal aortic root. Pericardium/Pleural No pericardial effusion. Medication Diluted definity 2ml given slow IV push to enhance endocardial definition. MMode/2D Measurements & Calculations LAV(MOD-bp): 59.9 ml LA A4 area: 23.4 cm2 RA A4 area: 11.6 cm2 LAV(MOD-bp) Indexed: 31.0 ml/m2 LAV(MOD-sp2): 36.8 ml LAV(MOD-sp4): 76.9 ml Time Measurements MV dec time: 0.10 sec Doppler Measurements & Calculations MV E max bryson: 105.3 cm/sec Lat Peak E' [place]: 10.6 cm/sec MV V2 max: 117.4 cm/sec MV A max bryson: 106.9 cm/sec E/E' lat: 9.9 MV max P.5 mmHg MV E/A: 0.99 MV V2 mean: 73.6 cm/sec MV mean P.4 mmHg MV V2 VTI: 27.3 cm MV dec slope: 1016 cm/sec2 Ao V2 max: 149.3 cm/sec LV V1 max: 96.6 cm/sec Ao max P.9 mmHg LV V1 max P.7 mmHg Ao V2 mean: 108.5 cm/sec LV V1 mean P.1 mmHg Ao mean P.2 mmHg LV V1 mean: 69.4 cm/sec Ao V2 VTI: 27.9 cm LV V1 VTI: 21.6 cm AV (velocity ratio): 0.77 PA V2 max: 75.4 cm/sec PA V2 mean: 48.8 cm/sec ECHO/Echo Complete W/ Contrast Interpretation Summary The estimated ejection fraction is 20 %. Stage 1 diastolic dysfunction. There is moderate to severe global hypokinesis of the left ventricle. Trivial mitral valve insufficiency. LV apical thrombus Ordering Physician: Gloria Madrid Referring Physician: ARTURO PCP Performed By: Rehana Gomes RCS
[2023-01-02 14:55] LABS: Absolute Lymphocyte Count 1.09 X10^3/uL (0.83-4.51); Absolute Neutrophil Count 5.8 X10^3/uL (2.0-7.7); Basophil# 0.07 X10^3/uL; Eosinophil# 0.23 X10^3/uL; Eosinophils% 3.2 % (0-5); Hematocrit 42.5 % (37-47); Hemoglobin 13.9 g/dL (12.0-15.0); Lymphocyte # 1.09 X10^3/ul (0.83-4.51); Mean Corp Hgb Conc 32.7 g/dL (32-36); Mean Corpuscular Hgb 31.3 pg (27.0-32.0); Mean Corpuscular Volume 95.7 fL (81-99); Mean Platelet Vol. 9.2 fl (6.2-12.0); Monocyte# 0.09 X10^3/uL; Monocyte% 1.2 % (0-10); NRBC Flagged by Analyzer 0 % (0-5); Neutrophil # 5.78 X10^3/uL (2.7-7.7); Neutrophil % 79.2 % (47-70); POSITIVE MORPHOLOGY YES; Platelet Count 257 K/mm3 (150-450); RBC Distribution Width CV 12.2 % (11.6-14.6); RBC Distribution Width SD 42.7 fl (35.1-43.9); Red Blood Count 4.44 M/mm3 (4.2-5.4); White Blood Count 7.3 K/mm3 (4.4-11.0)
[2023-01-02 14:59] LABS: Differential Indicated SCAN CRITERIA MET
[2023-01-02] MEDS: Morphine 2 MG/ML Syringe IV ×2 (15:06→21:49)
[2023-01-02] MEDS: 0.9% Saline Lock 10 ML Syringe IV ×4 (15:06→21:56)
[2023-01-02 15:08] LABS: Ferritin 72 ng/mL (8-252); Iron 86 ug/dL (50-170); Iron Binding Capacity,Total 260 ug/dL (250-450); Phosphorus 4.4 mg/dL (2.5-4.9)
[2023-01-02 15:16] LABS: BNP,B-Type NATRIURETIC PEPTIDE 303.3 pg/mL (0-100)
[2023-01-02 15:25] LABS: Lactic Acid 1.3 mmol/L (0.4-1.9)
[2023-01-02 15:26] LABS: AST(SGOT) 15 U/L (15-37); Alanine Aminotransfer ALT/SGPT 15 U/L (13-56); Albumin, Serum 3.1 g/dL (3.2-5.0); Alkaline Phosphatase 235 U/L (45-117); Bilirubin, Direct 0.06 mg/dL (0.00-0.30); Globulin 4.4 g/dL (2.2-4.2); Magnesium 2.2 mg/dL (1.6-2.6); Protein, Total 7.5 g/dL (6.4-8.2); Troponin-I HS 499 pg/mL (3.0-54.0)
[2023-01-02 16:10] LABS: Anisocytosis RARE; Atypical Lymphocyte 1+ %; Macrocytosis RARE; Platelet Estimate ADEQUATE (ADEQ); Reactive Lymphocyte 1+; Red Cell Morphology N CHROM NORMAL (NORM C&C); Toxic Granulation RARE
[2023-01-02] MEDS: Furosemide 40 MG/4 ML Vial 20 MG IV (16:25)
[2023-01-02 17:01] LABS: Troponin-I HS 402 pg/mL (3.0-54.0)
[2023-01-02] MEDS: Rivaroxaban 20 MG Tablet PO (18:24)
[2023-01-02] MEDS: Ipratropium/Albuterol Sulfate 3 ML AMPUL.NEB INHALATION (19:46)
[2023-01-02] MEDS: Amiodarone 200 MG Tablet PO (20:36)
[2023-01-02] MEDS: Atorvastatin Calcium 40 MG Tablet PO (20:36)
[2023-01-02] MEDS: Gabapentin 300 MG Capsule PO (20:37)
[2023-01-02] MEDS: LORazepam 2 MG/ML Syringe 0.5 MG IV (20:41)
[2023-01-02] MEDS: guaiFENesin 1,200 MG Tablet 1200 MG PO (21:47)
[2023-01-02] MEDS: MELATONIN 3 MG TABLET PO (21:47)
[2023-01-03] VITALS (10 sets, daily range): BP systolic 133–161; BP diastolic 76–108; PULSE 88–108; RESP 16–20; TEMP 36.3–37.1; O2SAT 94–95; BMI 31.5
[2023-01-03] MEDS: Gabapentin 300 MG Capsule PO ×3 (05:25→22:29)
[2023-01-03] MEDS: 0.9% Saline Lock 10 ML Syringe IV ×4 (05:26→22:35)
[2023-01-03] MEDS: Ipratropium/Albuterol Sulfate 3 ML AMPUL.NEB INHALATION ×4 (06:15→20:26)
[2023-01-03 08:40] LABS: Absolute Lymphocyte Count 1.44 X10^3/uL (0.83-4.51); Absolute Neutrophil Count 12.7 X10^3/uL (2.0-7.7); Basophil# 0.04 X10^3/uL; Basophil% 0.3 % (0-1); Hematocrit 40.3 % (37-47); Lymphocyte # 1.44 X10^3/ul (0.83-4.51); Lymphocyte % 9.9 % (19-41); Mean Corp Hgb Conc 32.3 g/dL (32-36); Mean Corpuscular Hgb 31.2 pg (27.0-32.0); Mean Corpuscular Volume 96.6 fL (81-99); Mean Platelet Vol. 9.2 fl (6.2-12.0); Monocyte# 0.23 X10^3/uL; Monocyte% 1.6 % (0-10); NRBC Flagged by Analyzer 0 % (0-5); Neutrophil # 12.73 X10^3/uL (2.7-7.7); Neutrophil % 87.6 % (47-70); Platelet Count 275 K/mm3 (150-450); Red Blood Count 4.17 M/mm3 (4.2-5.4); White Blood Count 14.5 K/mm3 (4.4-11.0)
[2023-01-03] MEDS: Morphine 2 MG/ML Syringe IV ×4 (08:59→22:30)
[2023-01-03] MEDS: Furosemide 20 MG Tablet PO ×2 (08:59→17:25)
[2023-01-03] MEDS: Amiodarone 200 MG Tablet PO ×2 (09:01→20:12)
[2023-01-03] MEDS: Aspirin E.C. 81 MG Tablet PO (09:01)
[2023-01-03] MEDS: guaiFENesin 1,200 MG Tablet 1200 MG PO ×2 (09:01→22:21)
[2023-01-03 09:11] LABS: ALB/GLOB Ratio 0.7 RATIO (0.9-2.4); AST(SGOT) 11 U/L (15-37); Alanine Aminotransfer ALT/SGPT 16 U/L (13-56); Albumin, Serum 2.9 g/dL (3.2-5.0); Alkaline Phosphatase 221 U/L (45-117); Anion Gap 7 (5-15); BUN 32 mg/dL (7-18); BUN/Creat Ratio 31.7 RATIO (10-20); Calcium,Total 9.5 mg/dL (8.5-10.1); Chloride 106 mmol/L (98-107); Cholesterol 220 mg/dL (200); Creatinine, Serum 1.01 mg/dL (0.55-1.02); EST Glomerular Filtration Rate 58 mL/min (>60); Est Glom Filt Rate - Afr Amer 71 mL/min (>60); Glucose 181 mg/dL (74-106); High Density Lipoprotein 46 mg/dL; Potassium 4.1 mmol/L (3.5-5.1); Protein, Total 6.9 g/dL (6.4-8.2); Sodium Level 139 mmol/L (136-145); Triglycerides 119 mg/dL; Very Low Density Lipoprotein 24 mg/dL (5-40)
[2023-01-03 09:42] LABS: Hemoglobin A1c 5.5 % (3.8-5.6)
--- NOTE | 2023-01-03 09:58 | PCM.PN.HOSP ---
Reason for Visit Reason for Visit: Diagnoses Non-ST elevation (NSTEMI) myocardial infarction (01/02/23) Chronic obstructive pulmonary disease with (acute) exacerbation (01/02/23) Subjective Subjective Still reports not really feeling better Objective Data Objective Data Vital Signs: Vital Signs Temp Pulse Resp BP Pulse Ox O2 Del Method O2 Flow Rate 98.1 F 105 H 16 154/79 H 94 Room Air 2 01/03/23 08:56 01/03/23 08:56 01/03/23 08:56 01/03/23 08:56 01/03/23 08:56 01/03/23 09:14 01/03/23 08:56 Oxygen Flow Rate (L/min) 2 Oxygen Delivery Method Room Air Weight: 86 kg Body Mass Index (BMI) 31.5 Intake & Output: Intake and Output for Last 24 Hours 01/01/23 01/02/23 01/03/23 23:59 23:59 23:59 Intake Total 830 / 1230 640 / 640 Balance 830 / 1230 640 / 640 Lab / Micro Data Result Diagrams: 01/03/23 08:20 01/03/23 08:20 Labs: Laboratory Results - last 24 hr 01/02/23 09:30: WBC 7.9, RBC 4.43, Hgb 14.2, Hct 43.7, MCV 98.6, MCH 32.1 H, MCHC 32.5, RDW Std Deviation 45.0 H, RDW Coeff of Sariah 12.3, Plt Count 311, MPV 9.7, Immature Gran % (Auto) 0.400, Neut % (Auto) 41.8 L, Lymph % (Auto) 36.1, [place] % (Auto) 6.6, Eos % (Auto) 13.7 H, Baso % (Auto) 1.4 H, Absolute Neuts (auto) 3.3, Absolute Lymphs (auto) 2.84, Nucleated RBC % 0 01/02/23 09:30: Sodium 140, Potassium 4.3, Chloride 109 H, Carbon Dioxide 31.0, Anion Gap 0 L, BUN 26 H, Creatinine 0.84, Estim Creat Clear Calc 61.67, Est GFR (MDRD) Af Amer 87, Est GFR (MDRD) Non-Af 72, BUN/Creatinine Ratio 31.0 H, Glucose 99, Calcium 9.6, Troponin I High Sens 613 H* 01/02/23 09:30: B-Natriuretic Peptide 303.3 H 01/02/23 09:30: Phosphorus 4.4, Iron 86, TIBC 260, Ferritin 72 01/02/23 14:40: WBC 7.3, RBC 4.44, Hgb 13.9, Hct 42.5, MCV 95.7, MCH 31.3, MCHC 32.7, RDW Std Deviation 42.7, RDW Coeff of Sariah 12.2, Plt Count 257, MPV 9.2, Immature Gran % (Auto) 0.400, Neut % (Auto) 79.2 H, Lymph % (Auto) 15.0 L, [place] % (Auto) 1.2, Eos % (Auto) 3.2, Baso % (Auto) 1.0, Absolute Neuts (auto) 5.8, Absolute Lymphs (auto) 1.09, Nucleated RBC % 0, Atypical Lymphocytes 1+, Reactive Lymphocytes 1+, Toxic Granulation RARE, Platelet Estimate ADEQUATE, RBC Morphology N CHROM, Anisocytosis RARE, Macrocytosis RARE 01/02/23 14:40: Magnesium 2.2, Total Bilirubin 0.20, Direct Bilirubin 0.06, AST 15, ALT 15, Alkaline Phosphatase 235 H, Troponin I High Sens 499 H*, Total Protein 7.5, Albumin 3.1 L, Globulin 4.4 H 01/02/23 14:40: Lactic Acid 1.3 01/02/23 15:55: Troponin I High Sens 402 H* 01/03/23 08:20: WBC 14.5 H, RBC 4.17 L, Hgb 13.0, Hct 40.3, MCV 96.6, MCH 31.2, MCHC 32.3, RDW Std Deviation 43.0, RDW Coeff of Sariah 12.0, Plt Count 275, MPV 9.2, Immature Gran % (Auto) 0.600, Neut % (Auto) 87.6 H, Lymph % (Auto) 9.9 L, [place] % (Auto) 1.6, Eos % (Auto) 0.0, Baso % (Auto) 0.3, Absolute Neuts (auto) 12.7 H, Absolute Lymphs (auto) 1.44, Nucleated RBC % 0 01/03/23 08:20: Sodium 139, Potassium 4.1, Chloride 106, Carbon Dioxide 26.0, Anion Gap 7, BUN 32 H, Creatinine 1.01, Estim Creat Clear Calc 49.30, Est GFR (MDRD) Af Amer 71, Est GFR (MDRD) Non-Af 58 L, BUN/Creatinine Ratio 31.7 H, Glucose 181 H, Calcium 9.5, Total Bilirubin 0.20, AST 11 L, ALT 16, Alkaline Phosphatase 221 H, Total Protein 6.9, Albumin 2.9 L, Globulin 4.0, Albumin/Globulin Ratio 0.7 L, Triglycerides 119, Cholesterol 220 H, LDL Cholesterol 150 H, VLDL Cholesterol 24, HDL Cholesterol 46, Folate 10.40 01/03/23 08:20: Hemoglobin A1c 5.5 Micro: Microbiology 01/02/23 15:20 Mucosa - Nasopharyngeal Respiratory Panel (PCR) - Final 01/02/23 15:10 Nasal Secretion SARS-CoV-2 & FLU Antigen (Rapid) - Final Radiography Diagnostic Testing: Radiology Impression Chest X-Ray 01/02/23 09:57 IMPRESSION: Hyperinflation. No acute abnormality is seen. Electronically Signed: Desmond Mojica MD at 11:03 EDT , Physical Exam Narrative General: Easily woken up, no acute distress HEENT: Atraumatic, normocephalic Eyes: Anicteric, normal conjunctiva, extraocular movements grossly intact Neck: Supple Respiratory: Significant improvement in wheezing and air movement, no increased work of breathing Cardiovascular: Regular rate GI: Soft, nontender, nondistended Extremities: No edema appreciated Musculoskeletal: Moving all extremities Neuro: No overt focal neurological deficits Skin: No rashes appreciated Psych: More cooperative and calm today Assessment & Plan Assessment/Plan (1) Acute non-ST elevation myocardial infarction (NSTEMI): (2) Acute exacerbation of chronic obstructive pulmonary disease: PLAN: Plan #Shortness of breath secondary to AECOPD secondary to noncompliance -Suspect multifactorial given her noncompliance with home medication and that she ran out of all of her inhalers and her Lasix as well -Does have increasing shortness of breath and cough and has not used her inhalers so I do suspect possible acute exacerbation of COPD but difficult to exclude exacerbation of heart failure or coronary event -Chest x-ray with hyperinflation but no other acute abnormality, does not appear to have peripheral edema but is noted to have ischemic cardiomyopathy with heart failure with reduced ejection fraction and EF of 25% -Received Solu-Medrol and albuterol in ED -We will schedule nebs with albuterol as needed and will continue steroids and will add doxycycline -Check COVID, flu, respiratory panel -Check BNP -Resume home lasix -If elevated BNP or no improvement with treatment of a COPD will consider IV Lasix -Repeat echocardiogram -Daily weights, I's and O's, incentive spirometry -Patient has been out of her Xarelto but based on history and exam low suspicion for PE -01/03: Wheezing significantly improved and overall seems better this morning on evaluation though she reports not really feeling better. Continue nebs and steroids and doxycycline. Home Lasix resumed which has likely been additional help #Chest pain/NSTEMI -Difficult to assess type I versus type II given a COPD plus possible a CHF and chest pain that she has difficulty characterizing -Initial troponin elevated at 613 -Patient had difficulty characterizing her chest pain. She has some chronic pain diffusely and reports pain is worse when she is swallowing and coughing but sometimes is there when its not and can come and go but she had difficulty saying what else made it better or worse -Loaded with aspirin -EKG looks similar to previous in August -Cycle troponins -Does have a history of coronary artery disease and risk factors and continues to smoke -Had heart cath on 01/20/2022 with elevated LV EDP and hoopa multivessel coronary artery disease with no intervention but advised risk factor modification and medical therapy -Cardiology consulted -01/03: Troponin initially 613 and down trended to 402, continue aspirin, atorvastatin, and Xarelto, echocardiogram and cardiology consult pending. #HFrEF/chronic ischemic cardiomyopathy/CAD/PVD -Echo 01/17/2022 demonstrated an EF of 20% with moderately severe 3+ mitral valve insufficiency -Had heart cath on 01/20/2022 with elevated LV EDP and hoopa multivessel coronary artery disease with no intervention but advised risk factor modification and medical therapy -Aspirin, resume Xarelto, cardiology consult, statin, lipid panel -Repeat echo -We will hold beta-cora as she has not been taking it and it is unclear yet if she is in exacerbation -01/03: Home Lasix resumed, echo pending. Breathing significantly improved #GERD/Food sticking -IV PPI due to hesitant to to take too many medications as she feels things stuck in her throat sometimes -We will also order speech for formal swallow eval but will have bedside swallow initially to assess safety of taking any oral medication -01/03: Speech assessed and recommendations made. Of note further back in patient's history it appears she has chronic problems with a sensation of food getting stuck, advised to keep appointment with gastroenterology that her son reported she had in the future. Did have an EGD by Dr. Siu 09/13/2019 and had mild gastritis and grade 3 distal esophagitis. 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 Additionally has a long history of multiple somatic complaints, checking B12 and vitamin D, likely would benefit from close follow-ups with primary care physician and management of anxiety. As she has not been taking her medications at home her Paxil was not restarted but with her medical comorbidities and age may benefit from Zoloft or additional SSRI trial with less anticholinergic activity #Tobacco use -Advise cessation #DVT ppx: Xarelto CODE DISCUSSION: Asked patient about CODE STATUS in the emergency department. Son reported that he was her power of attorney general and that there was going to be no DNR and that she was full code. Patient became tearful and said that that is not what she wanted. Educated that she is alert and oriented and there is no indication that she is not able to make her own medical decisions and that medical power of attorney general only comes in to place when she is unable to do so. After further discussion patient wants to be DNR/DNI. Gloria Madrid MD Time spent in the patient's overall evaluation,decision-making process, review of diagnostic data, adjustment of management, discussion with other providers, nursing nursing and ancillary staff involved in patient's care documentation, 30 minutes Charges/Coding Visit Charges Inpatient E&M: 67846 Subs Hosp L2
[2023-01-03] MEDS: Acetaminophen 325 MG Tablet 650 MG PO ×2 (11:22→17:32)
[2023-01-03] MEDS: LORazepam 0.5 MG Tablet PO ×2 (13:00→22:29)
--- NOTE | 2023-01-03 14:25 | CASEMGMT ---
WENDY CANCINO DC Planning Assessment: Face to Face with patient for initial transition planning/care coordination assessment. WENDY CANCINO introduced self and role at [facility], pt voices understanding.?Pt alert, oriented and agreeable to participating in assessment with son Sanju and daughter Marleny at bedside. Care providers, pharmacy,?and demographics verified. ? PCP: Kerry Specialists: psychiatrist at [facility] Preferred Pharmacy: [facility] Insurance: [employer] MCR and [employer] Prescription Benefit:?yes Living Will/HPOA: none LNOK: son Sanju, daughter Marleny Living Arrangements: Pt lives with son in a single story home with three steps to enter. Pt denies any difficulty with navigating the steps. Pt states she is independent with ADLs. Pt's son states that the home currently has running water but the electricity was turned off this past Thursday. The gas is also shut off. They do not have hot water or are unable to prepare food. Pt's son states he has an appointment on Thursday with [facility] and pt states she has an appointment on Thursday with the [facility] navigator. Pt's daughter reports this was a friend's home and they were unaware the utilities were being discontinued. Transportation: taxi, family, friends DME/SNF/HHC: pt denies any current or previous needs. ? Plan: Pt plans to return to the same home with her son. Pt denies any discharge needs at this time. Pt's son enquired about GI follow-up appointment and outpt swallowing study. States he has made appointments for GI f/u but there is an extended wait. Encouraged him to request to be placed on the cancelation list to promote obtaining an earlier appt. Pt's son expressed understanding. Discussed obtaining an order for the swallow study from pt's PCP Dr. Payne. SW notified of utilities being off and additional resources to be provided. Will continue to monitor and assist with DC planning needs as identified. Valentina Monteiro RN CM
--- NOTE | 2023-01-03 15:16 | CASEMGMT ---
Social Work Provided patient and patient's son with resources for [employer], [employer] and the [facility]. Son reports they are connected with [employer] and he has an appt Thursday with [facility]. Pt and son are in need of housing transportation and assistance with utilities. SW provided emotional support. Florence Vegas FRENCH BINDER, MENDING CARRIER
--- NOTE | 2023-01-03 16:13 | CON.PCM.CA_ITS ---
Assessment & Plan Assessment/Plan (1) Nonischemic cardiomyopathy: PLAN: Patient has depressed EF that is out of proportion to her CAD. She does have nonischemic cardiomyopathy. She is compensated from the standpoint. She is not volume overloaded. Continue carvedilol, lisinopril that she is supposed to be on at home. (2) Atherosclerotic heart disease of [place] coronary artery without angina pectoris: QUALIFIERS: [place] vs. transplanted heart: unspecified whether [place] or transplanted heart Qualified Code(s): I25.10 - Atherosclerotic heart disease of [place] coronary artery without angina pectoris PLAN: Agree with continuing Plavix and statin. (3) Elevated troponin: PLAN: Appears to be type II MT. No further cardiac work-up is required for this. (4) LV (left ventricular) mural thrombus: PLAN: It appears that patient was not taking her Xarelto. Please restart Xarelto. Due to history of noncompliance it may be reasonable to keep the patient on Xarelto rather than Coumadin. PLAN: Plan We will sign off at this time. Please let us know if we can be of any further assistance. Thank you much for letting us perspire in the care of this patient. HPI Consult Data Date of Consult: 01/03/23 HPI Narrative Reason for Consultation: Elevated troponin HPI Narrative: ECHO KERNS, is a 67 F who presents with shortness of breath. Patient also has cough, chest pain that is retrosternal worse with coughing and with deep inspiration. She also has pain in the back which she states she has had for a year and also complains of pain in both sides of the chest with eating that she has had for several weeks. Patient has history of nonischemic cardiomyopathy with an EF of around 25% with coronary angiogram done in January 2022 revealing mild nonobstructive coronary artery disease. She also has history of peripheral vascular disease, COPD dyslipidemia, hypertension, active tobacco abuse. It appears that she is not compliant with medications either. She was supposed to be on Xarelto but it is unclear if she was taking it regularly. Cardiology consult was requested because patient's high-sensitivity troponin was around 600 upon presentation. It has been trending down since then. 2D echo revealed an EF of around 20% with LV apical thrombus. Review of systems: All systems reviewed. All else is negative except that in [facility] Medical History Anxiety and depression Atherosclerotic heart disease of [place] coronary artery without angina pectoris Calculus of left kidney COPD (chronic obstructive pulmonary disease) Depression Essential hypertension GERD (gastroesophageal reflux disease) History of non-ST elevation myocardial infarction (NSTEMI) (09/01/21) Hyperlipidemia Ischemic cardiomyopathy Kidney stones Myocardial infarct Obesity (BMI 30.0-34.9) Old anterior wall myocardial infarction Opiate dependence EVELYN (obstructive sleep apnea) Osteoporosis Personal history of transient ischemic attack (TIA), and cerebral infarction without residual deficits Smoker Sustained SVT TIA (transient ischemic attack) Tobacco abuse Home Medications lorazepam 1 mg tablet 1 mg PO BID PRN PRN Anxiety 06/15/21 [History Last Taken Unknown] gabapentin 300 mg capsule 300 mg PO TID nerve pain #90 caps 01/01/22 [Rx Last Taken 08/11/22] amiodarone 200 mg tablet 200 mg PO 0800,2000 #180 tabs 06/04/22 [Rx Last Taken Unknown] atorvastatin 40 mg tablet (Lipitor) 40 mg PO QHS #90 tabs 06/04/22 [Rx Last Taken Unknown] furosemide 20 mg tablet 20 mg PO BIDLX #180 tabs 06/04/22 [Rx Last Taken Unknown] lisinopril 2.5 mg tablet 2.5 mg PO BID #180 tabs 06/04/22 [Rx Last Taken 08/11/22] paroxetine HCl 20 mg tablet 20 mg PO DAILY 06/09/22 [History Last Taken Unknown] clopidogrel 75 mg tablet (Plavix) 75 mg PO DAILY #30 tabs 08/04/22 [Rx Last Taken Unknown] pantoprazole 40 mg tablet,delayed release (Protonix) 40 mg PO DAILY #30 tabs 08/08/22 [Rx Last Taken Unknown] ondansetron 4 mg disintegrating tablet 4 mg PO Q8H PRN nausea and vomiting #10 tabs 08/16/22 [Rx Last Taken Unknown] sucralfate 100 mg/mL oral suspension (Carafate) 10 ml PO Q6H #1,000 mL 08/30/22 [Rx Last Taken Unknown] rivaroxaban 20 mg tablet (Xarelto) See Rx Instructions .Route .COMPLEX #30 tabs 09/17/22 [Rx Last Taken Unknown] nicotine 10 mg/mL nasal spray 1 spray intranasal DAILY #40 mL 09/19/22 [Rx Last Taken Unknown] carvedilol 6.25 mg tablet 6.25 mg PO BID #60 tabs 12/05/22 [Rx Last Taken Unknown] Allergy/AdvReac Type Severity Reaction Status Date / Time No Known Allergies Allergy Verified 01/02/23 09:21 Family History Mother Hypertension CAD (coronary artery disease) CVA (cerebral vascular accident) Myocardial infarction Grandmother Myocardial infarction Surgical History History of hysterectomy History of left heart catheterization (01/20/22) History of total hysterectomy Hx of appendectomy Social History household members: none Smoking Status: Former smoker alcohol intake: never substance use type: does not use Physical Exam Const alert and oriented x3 HEENT normocephalic Neck no JVD Resp normal respiratory effort and clear to auscultation bilaterally Cardio regular rate and regular rhythm Extremity no pedal edema Skin no rashes or lesions noted Psych mental status grossly normal Risk Stratification Risk Stratification Applicable: No Charges/Coding Visit Charges Inpatient E&M: 77362 Init Hosp L2 Objective Data Vital Signs: Vital Signs Temp Pulse Resp BP Pulse Ox O2 Del Method O2 Flow Rate 97.3 F L 108 H 16 161/92 H 95 Room Air 2 01/03/23 12:58 01/03/23 12:58 01/03/23 12:58 01/03/23 12:58 01/03/23 12:58 01/03/23 14:10 01/03/23 08:56 Oxygen Flow Rate (L/min) 2 Oxygen Delivery Method Room Air Weight: 189 lb 9.561 oz Body Mass Index (BMI) 31.5 Intake & Output: Intake and Output for Last 24 Hours 01/01/23 01/02/23 01/03/23 23:59 23:59 23:59 Intake Total 830 / 1230 1430 / 1430 Balance 830 / 1230 1430 / 1430 Lab / Micro Data Result Diagrams: 01/03/23 08:20 01/03/23 08:20 Labs: Laboratory Results - last 24 hr 01/02/23 15:55: Troponin I High Sens 402 H* 01/03/23 08:20: WBC 14.5 H, RBC 4.17 L, Hgb 13.0, Hct 40.3, MCV 96.6, MCH 31.2, MCHC 32.3, RDW Std Deviation 43.0, RDW Coeff of Sariah 12.0, Plt Count 275, MPV 9.2, Immature Gran % (Auto) 0.600, Neut % (Auto) 87.6 H, Lymph % (Auto) 9.9 L, [place] % (Auto) 1.6, Eos % (Auto) 0.0, Baso % (Auto) 0.3, Absolute Neuts (auto) 12.7 H, Absolute Lymphs (auto) 1.44, Nucleated RBC % 0 01/03/23 08:20: Sodium 139, Potassium 4.1, Chloride 106, Carbon Dioxide 26.0, Anion Gap 7, BUN 32 H, Creatinine 1.01, Estim Creat Clear Calc 49.30, Est GFR (MDRD) Af Amer 71, Est GFR (MDRD) Non-Af 58 L, BUN/Creatinine Ratio 31.7 H, Glucose 181 H, Calcium 9.5, Total Bilirubin 0.20, AST 11 L, ALT 16, Alkaline P hosphatase 221 H, Total Protein 6.9, Albumin 2.9 L, Globulin 4.0, Albumin/Globulin Ratio 0.7 L, Triglycerides 119, Cholesterol 220 H, LDL Cholesterol 150 H, VLDL Cholesterol 24, HDL Cholesterol 46, Folate 10.40 01/03/23 08:20: Hemoglobin A1c 5.5 Micro: Microbiology 01/02/23 15:20 Mucosa - Nasopharyngeal Respiratory Panel (PCR) - Final 01/02/23 15:10 Nasal Secretion SARS-CoV-2 & FLU Antigen (Rapid) - Final Cardiology Labs/Tests 01/03/23 08:20: WBC 14.5 H, RBC 4.17 L, Hgb 13.0, Hct 40.3, MCV 96.6, MCH 31.2, MCHC 32.3, Plt Count 275, MPV 9.2, Immature Gran % (Auto) 0.600, Neut % (Auto) 87.6 H, Lymph % (Auto) 9.9 L, [place] % (Auto) 1.6, Eos % (Auto) 0.0, Baso % (Auto) 0.3, Absolute Neuts (auto) 12.7 H, Nucleated RBC % 0 01/03/23 08:20: Sodium 139, Potassium 4.1, Chloride 106, Carbon Dioxide 26.0, Anion Gap 7, BUN 32 H, Creatinine 1.01, Est GFR (MDRD) Af Amer 71, Est GFR (MDRD) Non-Af 58 L, BUN/Creatinine Ratio 31.7 H, Glucose 181 H, Calcium 9.5, Total Bilirubin 0.20, Triglycerides 119, Cholesterol 220 H, LDL Cholesterol 150 H, VLDL Cholesterol 24, HDL Cholesterol 46 01/03/23 08:20: Hemoglobin A1c 5.5 Rhythm: EKG: ECHO: Stress Test: Cardiac Cath: PCI: CT Surgery: Holter monitor: EPS: PPM: CXR: Chest CT Scan: Radiography Diagnostic Testing: Radiology Impression Echocardiogram 01/02/23 14:24 Interpretation Summary The estimated ejection fraction is 20 %. Stage 1 diastolic dysfunction. There is moderate to severe global hypokinesis of the left ventricle. Trivial mitral valve insufficiency. LV apical thrombus Ordering Physician: Gloria Madrid Referring Physician: ARTURO PCP Performed By: Rehana Gomes RCS
[2023-01-03] MEDS: Rivaroxaban 20 MG Tablet PO (17:25)
[2023-01-03] MEDS: Sucralfate 1 GM Tablet PO ×2 (17:32→22:23)
[2023-01-03] MEDS: Atorvastatin Calcium 40 MG Tablet PO (22:21)
[2023-01-03] MEDS: Pantoprazole Sodium 40 MG Tablet PO (22:23)
[2023-01-03] MEDS: Carvedilol 3.125 MG TABLET PO (22:23)
[2023-01-04] MEDS: MELATONIN 3 MG TABLET PO (00:59)
[2023-01-04 04:07] VITALS: BP 143/86; PULSE 77; RESP 18; TEMP 36.7; O2SAT 93
[2023-01-04 05:59] LABS: Absolute Lymphocyte Count 1.97 X10^3/uL (0.83-4.51); Absolute Neutrophil Count 13.1 X10^3/uL (2.0-7.7); Basophil# 0.03 X10^3/uL; Basophil% 0.2 % (0-1); Hematocrit 38.5 % (37-47); Hemoglobin 12.6 g/dL (12.0-15.0); Lymphocyte # 1.97 X10^3/ul (0.83-4.51); Lymphocyte % 12.1 % (19-41); Mean Corp Hgb Conc 32.7 g/dL (32-36); Mean Corpuscular Hgb 31.3 pg (27.0-32.0); Mean Corpuscular Volume 95.8 fL (81-99); Mean Platelet Vol. 9.1 fl (6.2-12.0); Monocyte# 0.96 X10^3/uL; Monocyte% 5.9 % (0-10); NRBC Flagged by Analyzer 0 % (0-5); Neutrophil # 13.05 X10^3/uL (2.7-7.7); Neutrophil % 80.4 % (47-70); Platelet Count 277 K/mm3 (150-450); RBC Distribution Width CV 12.2 % (11.6-14.6); RBC Distribution Width SD 42.5 fl (35.1-43.9); Red Blood Count 4.02 M/mm3 (4.2-5.4); White Blood Count 16.2 K/mm3 (4.4-11.0)
[2023-01-04 06:00] VITALS: BMI 31.7
[2023-01-04] MEDS: Sucralfate 1 GM Tablet PO ×2 (06:18→12:23)
[2023-01-04] MEDS: Gabapentin 300 MG Capsule PO (06:18)
[2023-01-04] MEDS: Acetaminophen 325 MG Tablet 650 MG PO (06:18)
[2023-01-04 06:47] LABS: ALB/GLOB Ratio 0.7 RATIO (0.9-2.4); AST(SGOT) 13 U/L (15-37); Alanine Aminotransfer ALT/SGPT 19 U/L (13-56); Albumin, Serum 2.8 g/dL (3.2-5.0); Alkaline Phosphatase 205 U/L (45-117); Anion Gap 5 (5-15); BUN 34 mg/dL (7-18); BUN/Creat Ratio 37.2 RATIO (10-20); Calcium,Total 9.1 mg/dL (8.5-10.1); Chloride 105 mmol/L (98-107); Creatinine, Serum 0.91 mg/dL (0.55-1.02); EST Glomerular Filtration Rate 65 mL/min (>60); Est Glom Filt Rate - Afr Amer 79 mL/min (>60); Estimated Creatinine Clearance 54.72 ml/min; Globulin 3.8 g/dL (2.2-4.2); Glucose 123 mg/dL (74-106); Potassium 4.2 mmol/L (3.5-5.1); Protein, Total 6.6 g/dL (6.4-8.2); Sodium Level 138 mmol/L (136-145); Thyroid Stim Hormone (TSH) 0.25 uIU/mL (0.358-3.74)
[2023-01-04] MEDS: Ipratropium/Albuterol Sulfate 3 ML AMPUL.NEB INHALATION ×2 (07:36→11:34)
[2023-01-04 07:48] VITALS: PULSE 88; RESP 17; O2SAT 93
[2023-01-04 08:59] VITALS: BP 145/89; PULSE 77; RESP 16; TEMP 36.7; O2SAT 96
[2023-01-04] MEDS: predniSONE 20 MG Tablet 40 MG PO (09:05)
[2023-01-04] MEDS: Clopidogrel Bisulfate 75 MG Tablet PO (09:05)
[2023-01-04] MEDS: guaiFENesin 1,200 MG Tablet 1200 MG PO (09:05)
[2023-01-04] MEDS: Amiodarone 200 MG Tablet PO (09:05)
[2023-01-04] MEDS: Carvedilol 3.125 MG TABLET PO (09:05)
[2023-01-04] MEDS: Pantoprazole Sodium 40 MG Tablet PO (09:05)
[2023-01-04] MEDS: Furosemide 20 MG Tablet PO (09:05)
[2023-01-04 09:12] LABS: T4 Free Direct 0.82 ng/dL (0.76-1.46)
[2023-01-04] MEDS: Morphine 2 MG/ML Syringe IV (09:14)
[2023-01-04] MEDS: 0.9% Saline Lock 10 ML Syringe IV (09:14)
[2023-01-04 11:34] VITALS: PULSE 86; RESP 18
--- NOTE | 2023-01-04 13:55 | DS.PCM_ITS ---
Providers Date of Admission: 01/02/23 Date of Discharge: 01/04/23 Primary Care Physician: Dr. Sandy Barbosa MD Consultations 01/02/23 14:24 Consult: Cardiology Routine Consulting Provider: Arnold Buck Reason for Consult: Chest pain, elevated troponin EMERGENT Consult: No MD Notified: Yes Date Notified: 01/02/23 Time Notified: 14:02 Method of Notification: ED Physician Initiated Reason For Visit: SOB Diagnosis Discharge Diagnosis (1) Nonischemic cardiomyopathy: Status: Acute Code(s): I42.8 - Other cardiomyopathies (2) Atherosclerotic heart disease of [place] coronary artery without angina pectoris: Status: Chronic Code(s): I25.10 - Atherosclerotic heart disease of [place] coronary artery without angina pectoris Qualifiers: [place] vs. transplanted heart: unspecified whether [place] or transplanted heart Qualified Code(s): I25.10 - Atherosclerotic heart disease of [place] coronary artery without angina pectoris (3) Elevated troponin: Status: Acute Code(s): R77.8 - Other specified abnormalities of plasma proteins (4) LV (left ventricular) mural thrombus: Status: Acute Code(s): I51.3 - Intracardiac thrombosis, not elsewhere classified (5) GERD (gastroesophageal reflux disease): Status: Acute Code(s): K21.9 - Gastro-esophageal reflux disease without esophagitis Plan #Shortness of breath secondary to AECOPD secondary to noncompliance #Chest pain/NSTEMI type II/LV thrombus #HFrEF/chronic ischemic cardiomyopathy/CAD/PVD #GERD/Food sticking #COPD #?History of VTE #Anxiety/opioid use disorder #Tobacco use Medications at Discharge Home Medications lorazepam 1 mg tablet 1 mg PO BID PRN PRN Anxiety 06/15/21 gabapentin 300 mg capsule 300 mg PO TID nerve pain #90 caps 01/01/22 ondansetron 4 mg disintegrating tablet 4 mg PO Q8H PRN nausea and vomiting #10 tabs 08/16/22 nicotine 10 mg/mL nasal spray 1 spray intranasal DAILY #40 mL 09/19/22 albuterol sulfate 90 mcg/actuation breath activated powder inhaler 2 inh inhalation Q4H PRN shortness of breath or wheezing #1 ea 01/04/23 amiodarone 200 mg tablet 200 mg PO DAILY 30 days #30 tabs 01/04/23 atorvastatin 40 mg tablet (Lipitor) 40 mg PO QHS 30 days #30 tabs 01/04/23 carvedilol 6.25 mg tablet 6.25 mg PO BID 30 days #60 tabs 01/04/23 clopidogrel 75 mg tablet (Plavix) 75 mg PO DAILY 30 days #30 tabs 01/04/23 doxycycline hyclate 100 mg capsule 100 mg PO BID 4 days #9 caps 01/04/23 duloxetine 30 mg capsule,delayed release (Cymbalta) 30 mg PO DAILY #30 caps 01/04/23 furosemide 20 mg tablet 20 mg PO BIDLX 30 days #60 tabs 01/04/23 lisinopril 2.5 mg tablet 2.5 mg PO DAILY 30 days #30 tabs 01/04/23 pantoprazole 40 mg tablet,delayed release (Protonix) 40 mg PO BID 30 days #60 tabs 01/04/23 prednisone 20 mg tablet 40 mg PO DAILY 4 days #8 tabs 01/04/23 rivaroxaban 20 mg tablet See Rx Instructions .Route .COMPLEX 30 days #30 tabs 01/04/23 sucralfate 100 mg/mL oral suspension (Carafate) 10 ml PO Q6H 30 days #1,000 mL 01/04/23 tiotropium bromide 2.5 mcg/actuation mist for inhalation (Spiriva Respimat) 2 puff inhalation DAILY #4 grams 01/04/23 Hospital Course Procedures Transthoracic echo Summary of Care Provided Minutes Spent on Discharge: 45 Hospital Course: Marcia Mascorro is a 67-year-old female with a history of hypertension, COPD, peripheral vascular disease, ischemic cardiomyopathy, coronary artery disease, tobacco use who presented to [facility] 01/02/2023 with 4 to 5 days of increasing shortness of breath and chest pain. In ED she was wheezing and tachypneic and was given Methylpred and albuterol but it was discovered her troponin came back at 613 so she was loaded with aspirin and hospitalist consulted for admission cardiology consult. It was noted she was on home Xarelto and this was continued along with aspirin. She was a poor historian and chest pain was worsened with eating and she felt sometimes food got stuck in her throat. Echo overall unchanged from previously with an EF of 20% but did have an LV thrombus. Further discussion with patient and her son revealed she has not been taking her medications and is not sure what to take and has not filled them. Cardiology evaluated and did not feel chest pain is cardiac in nature. Discussed LV thrombus and anticoagulation and they were agreeable with Xarelto and resuming her home Plavix that she had been on in combination previously. It appears her indication for Xarelto may have been history of abdominal aorta mural thrombus and peripheral vascular thrombus and possibly a DVT though this may have been a superficial thrombus. 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 Has been noncompliant with medication, suspect this is esophageal/GI in nature especially as it got better with PPI and sucralfate. Start PPI BID dystrophic, and outpt GI follow up. Has had multiple outpatient tests scheduled for further evaluation of this pain and swallowing but has not come to many of these appointments. Strongly advise compliance with medication and outpatient follow-up. Previously was scheduled for esophagram but cannot find record that it was completed. Additionally had old CT in 2018 w/ terminal ileitis and it recommended r/o crohn's dz. During her admission she was also Treated for a COPD and her breathing improved significantly. On day of discharge she reports her symptoms have improved significantly including the chest pain since the start of the pantoprazole and sucralfate and breathing improved. Has chronic pain and discussed that we could add a pain management referral additionally discussed her neuropathy and mood as well as anger outbursts when we discussed starting Cymbalta as below and she was agreeable. Discharge instructions as followed: -You will be discharged with inhalers as well as prednisone for four more days. You will also take doxycycline, first dose tonight and four more days.? -It is strongly advise that you quit smoking, please discuss smoking cessation options with your primary care physician upon discharge -Your chest pain symptoms seem to be due to your gastric reflux and inflammation with your esophagus and stomach that was seen previously on endoscopy.??A prescription will be sent for pantoprazole 40 mg twice daily.? If you would prefer to take omeprazole (Prilosec) this can be obtained [id number] and y ou do not have to fill the pantoprazole but would recommend taking omeprazole twice daily.? Additionally will send a prescription for sucralfate that you can take 4 times daily -Strongly recommend you follow-up with gastroenterology upon discharge -Please?follow-up with your developer programmer analyst?upon discharge for further management of your heart failure?and your lung doctor?for management of your COPD -You will be discharged on a new medication, Cymbalta, which will take the place of your paroxetine and can help with anxiety, mood, and is recommended you switch because this will also help with your neuropathy -It is incredibly important that you continue your anticoagulation due to a clot in your heart -You will be given information to follow-up with Dr. Forrest with pain management if you would like to call to schedule an appointment to establish care with him -Speech therapy advised small bites, small sips, slow rate, alternate bites/solids and sip/liquids.? Sit upright with hip flexion at 90 degrees and remain upright for 30 minutes after eating -Weigh yourself every day. A sudden weight gain can mean you are retaining fluid. Weigh yourself at the same time of day and in the same kind of clothes. Ideally, weigh yourself first thing in the morning after you empty your bladder, but before you eat breakfast. -Please call your physician if your weight goes up by more than 2 pounds in 1 day or 5 pounds in 1 week. This can be a sign that you are retaining more fluid than you should be. Clues to weight gain include checking your ankles for sw elling, or noticing you are short of breath when you lie down -Please limit your sodium intake to less than 3 g/day. Here are tips: Limit canned, dried, packaged, and fast foods. Don't add salt to your food at the table. Season foods with herbs instead of salt when you cook. When you eat out, ask that the pillow filler not add any salt to your dish. Don't eat fried or greasy foods. Be careful of bottled beverages. They can contain a lot of salt -Call 911 right away if you have: -Severe shortness of breath, such that you can't catch your breath even while resting -Severe chest pain that does not resolve with rest or nitroglycerin -[place], foamy mucus with cough and shortness of breath -An ongoing rapid or irregular heartbeat -Passing out or fainting -Stroke symptoms such as sudden numbness or weakness on one side of your face, arm, or leg or sudden confusion, trouble speaking or vision changes -Daily medication schedule as below: The medications you will take in the morning are below: -Carvedilol 6.25 mg -Plavix 75 mg -Lisinopril 2.5 mg -Pantoprazole 40 mg daily -Cymbalta 30 mg -Amiodarone 200mg -Lasix 20 mg -Gabapentin 300 mg -Prednisone 40mg daily for an additional 4 days starting 01/05 -Doxycycline 100 mg for an additional 4 days -Use Spiriva (2 Tropium) 2 puffs once daily and albuterol as needed for shortness of breath and wheezing.? If you find yourself needing to use the albuterol more than 1 time in a day or more than 3 times in a week please call your primary care physician for further instructions The medications you will take in the afternoon are: -Lasix 20 mg -Gabapentin 300 mg The medications you will take at bedtime are: -Carvedilol 6.25 mg -Pantoprazole 40 mg daily -Atorvastatin 40 mg -Gabapentin 300 mg -Xarelto 20 mg with evening meal -Doxycycline 100 mg tonight and an additional 4 days Prescriptions for your heart and lung medications as well as Cymbalta have been sent to [facility] per your request.? Refills will need to be obtained through your primary care physician or your heart doctor -Please call your primary care provider's office upon discharge to schedule a hospital follow up within 1 week. -For any concerning signs or symptoms please call 911 or proceed to the nearest emergency department Physical Exam Narrative General: Alert, oriented, no apparent distress HEENT: Atraumatic, normocephalic Eyes: Anicteric, normal conjunctiva, extraocular movements grossly intact Neck: Supple Respiratory: Wheezes improved significantly, normal respiratory effort Cardiovascular: Regular rate and rhythm GI: Soft, nontender, nondistended Extremities: No edema Musculoskeletal: Moving all extremities Neuro: No overt focal neurological deficits Skin: No rashes appreciated Psych: Cooperative Weight / BMI Weight Weight: 86.6 kg Body Mass Index (BMI) 31.7 ABG / Lab / Microbiology Data Result Diagrams: 01/04/23 05:50 01/04/23 05:50 Laboratory: Laboratory Results - last 24 hr 01/04/23 05:50: WBC 16.2 H, RBC 4.02 L, Hgb 12.6, Hct 38.5, MCV 95.8, MCH 31.3, MCHC 32.7, RDW Std Deviation 42.5, RDW Coeff of [place] 12.2, Plt Count 277, MPV 9.1, Immature Gran % (Auto) 1.400 H, Neut % (Auto) 80.4 H, Lymph % (Auto) 12.1 L , [place] % (Auto) 5.9, Eos % (Auto) 0.0, Baso % (Auto) 0.2, Absolute Neuts (auto) 13.1 H, Absolute Lymphs (auto) 1.97, Nucleated RBC % 0 01/04/23 05:50: Sodium 138, Potassium 4.2, Chloride 105, Carbon Dioxide 28.0, Anion Gap 5, BUN 34 H, Creatinine 0.91, Estim Creat Clear Calc 54.72, Est GFR (MDRD) Af Amer 79, Est GFR (MDRD) Non-Af 65, BUN/Creatinine Ratio 37.2 H, Glucose 123 H, Calcium 9.1, Total Bilirubin 0.20, AST 13 L, ALT 19, Alkaline P hosphatase 205 H, Total Protein 6.6, Albumin 2.8 L, Globulin 3.8, Albumin/Globulin Ratio 0.7 L, TSH 0.25 L 01/04/23 05:50: Free T4 0.82 Microbiology: Microbiology 01/02/23 15:20 Mucosa - Nasopharyngeal Respiratory Panel (PCR) - Final 01/02/23 15:10 Nasal Secretion SARS-CoV-2 & FLU Antigen (Rapid) - Final D/C Instructions Discharge Diet: 2000 mg Sodium Diet and - (DASH diet. small bites, small sips, slow rate, alternate bites/solids and sip/liquids. Sit upright with hip flexion at 90 degrees and remain upright for 30 minutes after eating) Meaningful Use Info Meaningful Use Diagnoses (Choose all that apply): None applicable Discharge Plan Admission Admit Date/Time: 01/02/23 13:34 Primary Reason for Your Visit: Chest pain Attending Provider: Gloria Madrid Primary Care Provider: Sandy Barbosa Consulting Providers: Arnold Buck Instructions Patient Instructions: Cardiomyopathy Dc Additional Instructions / Restrictions: DISCHARGE INSTRUCTIONS PLEASE READ *Please take this with you to your next doctors appointment* -You will be discharged with inhalers as well as prednisone for four more days. You will also take doxycycline, first dose tonight and four more days. -It is strongly advise that you quit smoking, please discuss smoking cessation options with your primary care physician upon discharge -Your chest pain symptoms seem to be due to your gastric reflux and inflammation with your esophagus and stomach that was seen previously on endoscopy. A prescription will be sent for pantoprazole 40 mg twice daily. If you would prefer to take omeprazole (Prilosec) this can be obtained [id number] and you do not have to fill the pantoprazole but would recommend taking omeprazole twice daily. Additionally will send a prescription for sucralfate that you can take 4 times daily -Strongly recommend you follow-up with gastroenterology upon discharge -Please follow-up with your developer programmer analyst upon discharge for further management of your heart failure and your lung doctor for management of your COPD -You will be discharged on a new medication, Cymbalta, which will take the place of your paroxetine and can help with anxiety, mood, and is recommended you switch because this will also help with your neuropathy -It is incredibly important that you continue your anticoagulation due to a clot in your heart -You will be given information to follow-up with Dr. Forrest with pain management if you would like to call to schedule an appointment to establish care with him -Speech therapy advised small bites, small sips, slow rate, alternate bites/so lids and sip/liquids. Sit upright with hip flexion at 90 degrees and remain upright for 30 minutes after eating -Weigh yourself every day. A sudden weight gain can mean you are retaining fluid. Weigh yourself at the same time of day and in the same kind of clothes. Ideally, weigh yourself first thing in the morning after you empty your bladder, but before you eat breakfast. -Please call your physician if your weight goes up by more than 2 pounds in 1 day or 5 pounds in 1 week. This can be a sign that you are retaining more fluid than you should be. Clues to weight gain include checking your ankles for swelling, or noticing you are short of breath when you lie down -Please limit your sodium intake to less than 3 g/day. Here are tips: Limit canned, dried, packaged, and fast foods. Don't add salt to your food at the table. Season foods with herbs instead of salt when you cook. When you eat out, ask that the pillow filler not add any salt to your dish. Don't eat fried or greasy foods. Be careful of bottled beverages. They can contain a lot of salt -Call 911 right away if you have: -Severe shortness of breath, such that you can't catch your breath even while resting -Severe chest pain that does not resolve with rest or nitroglycerin -[place], foamy mucus with cough and shortness of breath -An ongoing rapid or irregular heartbeat -Passing out or fainting -Stroke symptoms such as sudden numbness or weakness on one side of your face, arm, or leg or sudden confusion, trouble speaking or vision changes -Daily medication schedule as below: The medications you will take in the morning are below: -Carvedilol 6.25 mg -Plavix 75 mg -Lisinopril 2.5 mg -Pantoprazole 40 mg daily -Cymbalta 30 mg -Amiodarone 200mg -Lasix 20 mg -Gabapentin 300 mg -Prednisone 40mg daily for an additional 4 days starting 01/05 -Doxycycline 100 mg for an additional 4 days -Use Spiriva (2 Tropium) 2 puffs once daily and albuterol as needed for shortness of breath and wheezing. If you find yourself needing to use the albuterol more than 1 time in a day or more than 3 times in a week please call your primary care physician for further instructions The medications you will take in the afternoon are: -Lasix 20 mg -Gabapentin 300 mg The medications you will take at bedtime are: -Carvedilol 6.25 mg -Pantoprazole 40 mg daily -Atorvastatin 40 mg -Gabapentin 300 mg -Xarelto 20 mg with evening meal -Doxycycline 100 mg tonight and an additional 4 days Prescriptions for your heart and lung medications as well as Cymbalta have been sent to [facility] per your request. Refills will need to be obtained through your primary care physician or your heart doctor -Please call your primary care provider's office upon discharge to schedule a hospital follow up within 1 week. -For any concerning signs or symptoms please call 911 or proceed to the nearest emergency department Discharge Orders/Prescriptions Prescriptions: New prednisone 20 mg Tablet 40 mg PO DAILY 4 Days Qty: 8 0RF duloxetine [Cymbalta] 30 mg capsule,delayed release(DR/EC) 30 mg PO DAILY Qty: 30 0RF Spiriva Respimat 2.5 mcg/actuation mist 2 puff inhalation DAILY Qty: 4 0RF albuterol sulfate 90 mcg/actuation aerosol powdr breath activated 2 inh inhalation Q4H PRN (Reason: shortness of breath or wheezing) Qty: 1 0RF doxycycline hyclate 100 mg capsule 100 mg PO BID 4 Days Qty: 9 0RF Continued lorazepam 1 mg tablet 1 mg PO BID PRN PRN (Reason: Anxiety) Label Comments: take 1 tablet by mouth twice a day if needed gabapentin 300 MG capsule 300 mg PO TID Qty: 90 0RF atorvastatin [Lipitor] 40 mg tablet 40 mg PO QHS 30 Days Qty: 30 0RF carvedilol 6.25 mg tablet 6.25 mg PO BID 30 Days Qty: 60 0RF sucralfate [Carafate] 100 mg/mL suspension 10 ml PO Q6H 30 Days Qty: 1000 0RF Rx Instructions: x 2 weeks clopidogrel [Plavix] 75 mg tablet 75 mg PO DAILY 30 Days Qty: 30 0RF furosemide 20 mg tablet 20 mg PO BIDLX 30 Days Qty: 60 0RF rivaroxaban 20 mg tablet See Rx Instructions .ROUTE .COMPLEX 30 Days Qty: 30 0RF Dose Instruction: TAKE 1 TABLET BY MOUTH DAILY WITH EVENING MEAL Rx Instructions: TAKE 1 TABLET BY MOUTH DAILY WITH EVENING MEAL ondansetron 4 mg tablet,disintegrating 4 mg PO Q8H PRN (Reason: nausea and vomiting) Qty: 10 0RF nicotine 10 mg/mL spray,non-aerosol 1 spray intranasal DAILY Qty: 40 6RF Rx Instructions: administer into each nostril Changed amiodarone 200 mg tablet 200 mg PO DAILY 30 Days Qty: 30 0RF pantoprazole [Protonix] 40 mg tablet,delayed release (DR/EC) 40 mg PO BID 30 Days Qty: 60 0RF lisinopril 2.5 mg tablet 2.5 mg PO DAILY 30 Days Qty: 30 0RF Discontinued paroxetine HCl 20 mg tablet 20 mg PO DAILY Referrals / Follow Up: Alok Forrest MD [Med Staff - Active Staff] - See Referral Note (follow-up with Dr. Forrest with pain management if you would like to call to schedule an appointment to establish care with him) Don Funk MD [Med Staff - Active Staff] - Within 1 Month (Please follow- up with your lung doctor upon discharge, please call the office to schedule hospital follow-up appointment) Sandy Barbosa MD [Primary Care Provider] - Within 1 Week Sudhir Ochoa MD [Med Staff - Testing Engineer] - Delilah Cook PA [Med Staff - Adv Practice Prof] - Within 2 Weeks (Please follow-up with your heart doctors office upon discharge, please call Thursday to schedule hospital follow-up appointment) Disposition Disposition (needs filled in before D/C Order can be placed): Home, Self Care Charges/Coding Visit Charges Inpatient E&M: 94852 Disch Hosp >30min
[2023-01-04 15:00] VITALS: BP 156/89; PULSE 81; RESP 16; TEMP 36.8; O2SAT 95
[2023-01-05 09:11] LABS: Vitamin B12 216 pg/mL (211-911); Vitamin D,25 Hydroxy 21.6 ng/mL
== END 2023-01-04 15:17 | disposition home or self-care (01) | DRG 190 ==
LOC: ED 12:54 → PCU 13:44
PROVIDERS: Admitting Provider Internal Medicine; Emergency Provider Emergency Medicine; PCP Internal Medicine; Visit Provider Internal Medicine
DX: J44.1 Chronic obstructive pulmonary disease with (acute) exacerbation (principal); I21.A1 Myocardial infarction type 2; I50.22 Chronic systolic (congestive) heart failure; I11.0 Hypertensive heart disease with heart failure; I73.9 Peripheral vascular disease, unspecified; F11.988 Opioid use, unspecified with other opioid-induced disorder; E78.5 Hyperlipidemia, unspecified; I34.0 Nonrheumatic mitral (valve) insufficiency; I25.5 Ischemic cardiomyopathy; I25.10 Atherosclerotic heart disease of native coronary artery without angina pectoris; G62.9 Polyneuropathy, unspecified; K21.9 Gastro-esophageal reflux disease without esophagitis; F17.200 Nicotine dependence, unspecified, uncomplicated; I25.2 Old myocardial infarction; F41.9 Anxiety disorder, unspecified; G89.29 Other chronic pain; I51.3 Intracardiac thrombosis, not elsewhere classified; R09.89 Other specified symptoms and signs involving the circulatory and respiratory systems; Z66 Do not resuscitate; Z91.148 Patient's other noncompliance with medication regimen for other reason; Z79.01 Long term (current) use of anticoagulants; Z79.02 Long term (current) use of antithrombotics/antiplatelets; Z79.82 Long term (current) use of aspirin; Z79.899 Other long term (current) drug therapy; Z86.73 Personal history of transient ischemic attack (TIA), and cerebral infarction without residual deficits
CPT/HCPCS: 36415; 71046; 80048; 80053; 80061; 80076; 82306; 82607; 82728; 82746; 83036; 83540; 83550; 83605; 83735; 83880; 84100; 84439; 84443; 84484; 85025; 87428; 87633; 92526; 92610; 93005; 93306; 94640; 94668; 97162; 97166; 97535; 97802; 99252; 99285; Q9957; A4216; C8929; G0463; J1940; J3490

== ENCOUNTER 2023-01-10 13:03 | Emergency (ER) | payer MEDICARE, MEDICAID, SELFPAY ==
[2023-01-10 13:04] VITALS: BP 147/89; PULSE 115; RESP 18; TEMP 36.3; O2SAT 98; BMI 28.3
--- NOTE | 2023-01-10 13:13 | EKG12_ITS ---
Test Reason : CHEST PAIN Blood Pressure : / mmHG Vent. Rate : 093 BPM Atrial Rate : 093 BPM P-R Int : 124 ms QRS Dur : 096 ms QT Int : 364 ms P-R-T Axes : 057 -07 094 degrees QTc Int : 452 ms Normal sinus rhythm Possible Left atrial enlargement Possible Inferior infarct , age undetermined Anterolateral infarct , age undetermined Abnormal ECG Confirmed by SAMUEL MARTINEZ, TABATHA ([id number]), editor continuity and script MICAH SALMERON ([id number]) on 01/12/2023 2:45:32 PM Referred By: CASSIA Confirmed By:SANDRA BAKER MD
--- NOTE | 2023-01-10 13:13 | RAD_ITS ---
INDICATION: chest pain EXAMINATION/TECHNIQUE: X-RAY - XR Chest 1 View COMPARISON: January 02, 2023 FINDINGS: LINES/DEVICES: None. LUNGS: No consolidation, edema or effusion. No pneumothorax. MEDIASTINUM AND CARDIOVASCULAR STRUCTURES: There is cardiomegaly. Central airways and mediastinal contour are unremarkable. BONES AND SOFT TISSUES: Unremarkable. RAD/Chest 1 View (Portable) IMPRESSION: Cardiomegaly. Electronically Signed: Hue Lakhani MD at 14:00 EDT ,
[2023-01-10 13:14] VITALS: BP 138/90; PULSE 97; RESP 24; O2SAT 98
--- NOTE | 2023-01-10 13:16 | EX.ED.DYSGE1 ---
[facility] <FATMATA Marie - Last Filed: 01/10/23 15:44> History of Present Illness Chief Complaint: Chest Pain Narrative Narrative: Patient is a 67-year-old female with history of COPD, tobacco use, lipidemia essential hypertension, ischemic cardiomyopathy presents to the emergency department left-sided chest pain, left-sided shoulder pain. Patient states that this started this morning when she woke up, she states constant, nothing makes it worse or better. Patient is concerned because she was just recently admitted to the hospital on January 02, 2023, she did have elevated troponins. Her last troponin on January 03, 2023 was 402. At that time, I did read the patient's admission note, the patient presented more short of breath. Patient still does use tobacco. Patient improved greatly over the couple days she was admitted. Patient states has been doing well, she is been more compliant with her medications and this includes her Xarelto, Cymbalta, her COPD medications. Patient states today that she told her son that she was having some left-sided chest pain, left back pain, and they wanted her to come here to be evaluated. [facility] <FATMATA Marie - Last Filed: 01/10/23 15:44> [facility] Medical History Anxiety and depression Atherosclerotic heart disease of [place] coronary artery without angina pectoris Calculus of left kidney COPD (chronic obstructive pulmonary disease) Depression Essential hypertension GERD (gastroesophageal reflux disease) History of non-ST elevation myocardial infarction (NSTEMI) (09/01/21) Hyperlipidemia Ischemic cardiomyopathy Kidney stones Myocardial infarct Obesity (BMI 30.0-34.9) Old anterior wall myocardial infarction Opiate dependence EVELYN (obstructive sleep apnea) Osteoporosis Personal history of transient ischemic attack (TIA), and cerebral infarction without residual deficits Smoker Sustained SVT TIA (transient ischemic attack) Tobacco abuse Home Medications lorazepam 1 mg tablet 1 mg PO BID PRN PRN Anxiety 06/15/21 [History Last Taken Unknown] gabapentin 300 mg capsule 300 mg PO TID nerve pain #90 caps 01/01/22 [Rx Last Taken 08/11/22] ondansetron 4 mg disintegrating tablet 4 mg PO Q8H PRN nausea and vomiting #10 tabs 08/16/22 [Rx Last Taken Unknown] nicotine 10 mg/mL nasal spray 1 spray intranasal DAILY #40 mL 09/19/22 [Rx Last Taken Unknown] amiodarone 200 mg tablet 200 mg PO DAILY 30 days #30 tabs 01/04/23 [Rx Last Taken Unknown] atorvastatin 40 mg tablet (Lipitor) 40 mg PO QHS 30 days #30 tabs 01/04/23 [Rx Last Taken Unknown] carvedilol 6.25 mg tablet 6.25 mg PO BID 30 days #60 tabs 01/04/23 [Rx Last Taken Unknown] clopidogrel 75 mg tablet (Plavix) 75 mg PO DAILY 30 days #30 tabs 01/04/23 [Rx Last Taken Unknown] doxycycline hyclate 100 mg capsule 100 mg PO BID 4 days #9 caps 01/04/23 [Rx Last Taken Unknown] duloxetine 30 mg capsule,delayed release (Cymbalta) 30 mg PO DAILY #30 caps 01/04/23 [Rx Last Taken Unknown] furosemide 20 mg tablet 20 mg PO BIDLX 30 days #60 tabs 01/04/23 [Rx Last Taken Unknown] lisinopril 2.5 mg tablet 2.5 mg PO DAILY 30 days #30 tabs 01/04/23 [Rx Last Taken Unknown] pantoprazole 40 mg tablet,delayed release (Protonix) 40 mg PO BID 30 days #60 tabs 01/04/23 [Rx Last Taken Unknown] prednisone 20 mg tablet 40 mg PO DAILY 4 days #8 tabs 01/04/23 [Rx Last Taken Unknown] rivaroxaban 20 mg tablet See Rx Instructions .Route .COMPLEX 30 days #30 tabs 01/04/23 [Rx Last Taken Unknown] sucralfate 100 mg/mL oral suspension (Carafate) 10 ml PO Q6H 30 days #1,000 mL 01/04/23 [Rx Last Taken Unknown] tiotropium bromide 2.5 mcg/actuation mist for inhalation (Spiriva Respimat) 2 puff inhalation DAILY #4 grams 01/04/23 [Rx Last Taken Unknown] Allergy/AdvReac Type Severity Reaction Status Date / Time No Known Allergies Allergy Verified 01/10/23 13:08 Family History Mother Hypertension CAD (coronary artery disease) CVA (cerebral vascular accident) Myocardial infarction Grandmother Myocardial infarction Surgical History History of hysterectomy History of left heart catheterization (01/20/22) History of total hysterectomy Hx of appendectomy Social History household members: none Smoking Status: Current some day smoker tobacco type: cigarettes alcohol intake: never substance use type: does not use ROS <FATMATA Marie - Last Filed: 01/10/23 15:44> ROS ED ROS Narrative Constitutional: Negative for fever, chills, weight loss, weakness Eyes: Negative for vision loss, vision change, double vision ENT: Negative for any sore throat, ear pain, congestion Cardiovascular: Negative for any tightness, palpitations. Positive for left-sided chest pain Respiratory: Negative for any cough, sputum production, hemoptysis, dyspnea, dyspnea on exertion, orthopnea Gastrointestinal: Negative for any abdominal pain, nausea, vomiting, diarrhea, constipation, blood in stool, blood in vomit : Negative for any urinary frequency, dysuria, retention, blood in urine Muscle skeletal: Negative for any muscle joint pain, stiffness, myalgias, arthralgias, neck pain. Positive for left back pain Neurological: Negative for any headache, syncope, numbness or tingling, dizziness Skin: Negative for any rashes, lumps, itching, abrasions, lacerations Psychiatric: Negative for any depression, anxiety, stress, suicidal ideation, homicidal ideation Hematologic: Negative for any easy bruising, excessive bruising, easy bleeding Allergies: Negative for any eczema, hives, rash EXAM <FATMATA Marie - Last Filed: 01/10/23 15:44> Physical Exam Narrative Exam Narrative: Vital signs reviewed. Patient appears generally well. Patient's vital signs are stable. HEET: Head normocephalic atraumatic, TMs clear bilaterally. Posterior pharynx is clear, moist mucous membranes. Nares clear bilaterally. Neck: Supple with no lymphadenopathy or tenderness. No signs of meningismus, negative jolt sign. Cardiac: Regular rate and rhythm no murmurs gallops or rubs, equal peripheral pulses bilaterally. Respiratory: Slight expiratory wheeze to the right lower lobe, however mostly clear.. No chest tenderness. Abdomen: Soft, nontender, nondistended. No abdominal bruit or pulsatile masses. No hepatosplenomegaly Extremities: No peripheral edema, no signs of gross trauma or deformity. Active full range of motion of all extremities. Neuro: Cranial nerves II through XII intact, no focal neurological deficits. Skin: Clean dry and intact with no rash, purpura, petechiae, vesicles or pustules. Backs/flank: No CVA tenderness, no midline spinal tenderness, no deformity. Patient does have left shoulder blade tenderness on palpation, this hurts worse more with movement. Psych: Normal mood and affect. No SI, HI or acute psychosis. Const Vital Signs: 01/10/23 13:04 01/10/23 13:11 01/10/23 13:14 Temperature 97.4 F L Temperature Source Temporal Pulse Rate 115 H 97 Respiratory Rate 18 24 H Respiratory Effort Normal Non-Labored Blood Pressure 147/89 H 138/90 H Blood Pressure Mean 108 106 Pulse Ox 98 98 Oxygen Delivery Method Room Air Room Air 01/10/23 13:18 01/10/23 15:48 Temperature Temperature Source Pulse Rate 76 Respiratory Rate 19 H Respiratory Effort Blood Pressure 110/69 Blood Pressure Mean Pulse Ox 96 Oxygen Delivery Method Room Air Positive well nourished and well developed General Appearance ED: well developed <Dr. Adryan Aguilera DO - Last Filed: 01/10/23 15:56> Physical Exam Const Vital Signs: 01/10/23 13:04 01/10/23 13:11 01/10/23 13:14 Temperature 97.4 F L Temperature Source Temporal Pulse Rate 115 H 97 Respiratory Rate 18 24 H Respiratory Effort Normal Non-Labored Blood Pressure 147/89 H 138/90 H Blood Pressure Mean 108 106 Pulse Ox 98 98 Oxygen Delivery Method Room Air Room Air 01/10/23 13:18 01/10/23 15:48 Temperature Temperature Source Pulse Rate 76 Respiratory Rate 19 H Respiratory Effort Blood Pressure 110/69 Blood Pressure Mean Pulse Ox 96 Oxygen Delivery Method Room Air MDM <FATMATA Marie - Last Filed: 01/10/23 15:44> MDM Lab Data Labs: Laboratory Results - last 24 hr 01/10/23 01/10/23 01/10/23 13:15 13:15 13:15 WBC 12.9 H RBC 4.85 Hgb 15.3 H Hct 46.7 MCV 96.3 MCH 31.5 MCHC 32.8 RDW Std Deviation 45.3 H RDW Coeff of Sariah 12.9 Plt Count 360 MPV 8.6 Immature Gran % (Auto) 0.700 Neut % (Auto) 59.7 Lymph % (Auto) 29.8 [place] % (Auto) 6.4 Eos % (Auto) 3.0 Baso % (Auto) 0.4 Absolute Neuts (auto) 7.7 Absolute Lymphs (auto) 3.85 Nucleated RBC % 0 PT 17.3 H INR 1.4 Sodium 139 Potassium 3.8 Chloride 102 Carbon Dioxide 30.0 Anion Gap 7 BUN 21 H Creatinine 0.98 Estim Creat Clear Calc 50.81 Est GFR (MDRD) Af Amer 73 Est GFR (MDRD) Non-Af 60 BUN/Creatinine Ratio 21.3 H Glucose 99 Calcium 9.7 Troponin I High Sens 70 H B-Natriuretic Peptide 01/10/23 01/10/23 13:15 15:04 WBC RBC Hgb Hct MCV MCH MCHC RDW Std Deviation RDW Coeff of Sariah Plt Count MPV Immature Gran % (Auto) Neut % (Auto) Lymph % (Auto) [place] % (Auto) Eos % (Auto) Baso % (Auto) Absolute Neuts (auto) Absolute Lymphs (auto) Nucleated RBC % PT INR Sodium Potassium Chloride Carbon Dioxide Anion Gap BUN Creatinine Estim Creat Clear Calc Est GFR (MDRD) Af Amer Est GFR (MDRD) Non-Af BUN/Creatinine Ratio Glucose Calcium Troponin I High Sens 61 H B-Natriuretic Peptide 378.6 H Radiography Diagnostic Testing: Clinical Impression(s) from Imaging Studies Chest X-Ray 01/10/23 13:13 IMPRESSION: Cardiomegaly. Electronically Signed: Hue Lakhani MD at 14:00 EDT , EKG Normal sinus rhythm, rate of 93 bpm, : Attestation: I personally reviewed and interpreted this EKG as follows: Comments: Normal sinus rhythm, rate of 93 bpm, HI 124 ms, QRS duration 86 ms, no acute ST elevation, no acute infarct noted Treatment and Re-Evaluation :: All radiologic examinations were read, reviewed by the emergency department attending. From these reads, a plan of care will be put in place. Patient appears generally well, patient appears nontoxic, vital signs are stable. Patient presents to the emergency department with complaints of left-sided chest pain that radiates to her back. She was recently admitted for NSTEMI, she has been doing well at home, she has been more competent taking her medications. Differential included ACS, CO, pneumonia. Patient did receive a full cardiac work-up. Chest x-ray showed cardiomegaly no other acute abnormality. Laboratory values showed a slight elevation in white count at 12.9 however this is trending down since 01/03/2023 when she was admitted. Patient's chemistries show an elevated BUN at 21 however this is improved from 01/04 at 34. Patient's troponin initially was 70, this is elevated however this is markedly improved from the patient's troponin on 01/02/2023 at 402. proBNP is elevated 378.6. Repeat troponin will be drawn. Patient was given 4 mg of morphine for discomfort. On reassessment, the patient was feeling better. At this time, EKG was unremarkable, patient did have a full cardiac work-up 1 week ago. At this time, the patient's troponin continues to trend down, I do believe the patient will be stable for discharge. She can follow-up outpatient. There is no evidence to suspect any ACS, CO. Patient showing no difficulty breathing, no evidence of any CHF exacerbation. Repeat troponin was 61, she is trending down. There is no evidence of any ongoing cardiopulmonary pathology at this time. 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 She needs to continue to take her Xarelto as well as her other medications. She is verbally understanding. All questions answered, patient stable for discharge <Dr. Adryan Aguilera, DO - Last Filed: 01/10/23 15:56> [facility] Narrative Medical decision making narrative: I have personally performed a face to face assessment of the patient and have reviewed the CHELSEA Note. I performed a substantive portion of the visit including all aspects of the following. My xiong findings include: History: Patient presents with chest pain that began this morning. Patient states she felt like her heart was beating fast. Patient states it is mainly over the left side of her chest. Patient denies any radiation of the pain. Patient states nothing made it better nothing made it worse. Patient denies any fevers or chills. Patient denies any shortness of breath or cough. Patient denies any diaphoresis. Exam: Vital signs are stable. Patient is afebrile. Patient is in no acute distress. Oral mucosa is pink and moist. Neck is supple. Trachea is midline. There is no JVD. Heart was regular rate and rhythm. Lungs are clear and equal bilaterally. Abdomen is soft. Bowel sounds are normal. There is no tenderness. Cranial nerves II through XII are intact. There are no focal motor or sensory deficits noted. Medical Decision Making: Differential diagnosis includes cardiac dysrhythmia, cardiac ischemia, pneumonia, pneumothorax, electrolyte abnormality, congestive heart failure, anxiety, and musculoskeletal pain. EKG will be obtained to assess for cardiac dysrhythmia and cardiac ischemia. Chest x-ray will be obtained to assess for pneumonia and pneumothorax. CBC will be obtained to assess for leukocytosis and anemia. Basic metabolic profile will be obtained to assess for electrolyte abnormality and renal function. High-sensitivity troponin will be obtained to assess for cardiac ischemia. PT with INR will be obtained to assess for coagulopathy. BNP will be obtained to assess for congestive heart failure. EKG was obtained. On my independent interpretation, it shows normal sinus rhythm with a rate of 93. There are nonspecific ST-T wave changes. This was unchanged compared to previous EKG dated 01/02/2023. Portable 1 view chest x-ray was obtained. On my independent interpretation, lung flores are clear. There is cardiomegaly noted. Bony thorax is normal. There is no acute process noted. Radiologist also interpreted the x-ray and agrees. CBC was reviewed. There is a mild leukocytosis of 12.9. Hemoglobin was stable at 15.3 and hematocrit was 46.7. Platelets were normal. PT with INR was reviewed. Pro time was 17.3 and INR is 1.4. Basic metabolic profile was reviewed and was essentially within normal limits. High-sensitivity troponin was reviewed and was 70. This is improved compared to previous results. BNP was reviewed and was elevated at 378.6. This is stable compared to previous results. 2-hour repeat troponin is normal at 61. Patient was advised of her findings. Patient was instructed to follow-up with her primary care physician in 5 to 7 days. Patient understood and was agreeable with the plan. All questions were answered. Lab Data Labs: Laboratory Results - last 24 hr 01/10/23 01/10/23 01/10/23 13:15 13:15 13:15 WBC 12.9 H RBC 4.85 Hgb 15.3 H Hct 46.7 MCV 96.3 MCH 31.5 MCHC 32.8 RDW Std Deviation 45.3 H RDW Coeff of Sariah 12.9 Plt Count 360 MPV 8.6 Immature Gran % (Auto) 0.700 Neut % (Auto) 59.7 Lymph % (Auto) 29.8 [place] % (Auto) 6.4 Eos % (Auto) 3.0 Baso % (Auto) 0.4 Absolute Neuts (auto) 7.7 Absolute Lymphs (auto) 3.85 Nucleated RBC % 0 PT 17.3 H INR 1.4 Sodium 139 Potassium 3.8 Chloride 102 Carbon Dioxide 30.0 Anion Gap 7 BUN 21 H Creatinine 0.98 Estim Creat Clear Calc 50.81 Est GFR (MDRD) Af Amer 73 Est GFR (MDRD) Non-Af 60 BUN/Creatinine Ratio 21.3 H Glucose 99 Calcium 9.7 Troponin I High Sens 70 H B-Natriuretic Peptide 01/10/23 01/10/23 13:15 15:04 WBC RBC Hgb Hct MCV MCH MCHC RDW Std Deviation RDW Coeff of Sariah Plt Count MPV Immature Gran % (Auto) Neut % (Auto) Lymph % (Auto) [place] % (Auto) Eos % (Auto) Baso % (Auto) Absolute Neuts (auto) Absolute Lymphs (auto) Nucleated RBC % PT INR Sodium Potassium Chloride Carbon Dioxide Anion Gap BUN Creatinine Estim Creat Clear Calc Est GFR (MDRD) Af Amer Est GFR (MDRD) Non-Af BUN/Creatinine Ratio Glucose Calcium Troponin I High Sens 61 H B-Natriuretic Peptide 378.6 H Radiography Diagnostic Testing: Clinical Impression(s) from Imaging Studies Chest X-Ray 01/10/23 13:13 IMPRESSION: Cardiomegaly. Electronically Signed: Hue Lakhani MD at 14:00 EDT , Discharge Plan Triage Chief Complaint: Chest Pain ED Midlevel Provider: Danny Olivo ED Provider: Adryan Aguilera Dx/Rx/DC Orders Clinical Impression: Chest pain Instructions: ED Chest Pain, Uncertain Cause Prescriptions: No Action lorazepam 1 mg tablet 1 mg PO BID PRN PRN (Reason: Anxiety) Label Comments: take 1 tablet by mouth twice a day if needed gabapentin 300 MG capsule 300 mg PO TID Qty: 90 0RF prednisone 20 mg Tablet 40 mg PO DAILY 4 Days Qty: 8 0RF duloxetine [Cymbalta] 30 mg capsule,delayed release(DR/EC) 30 mg PO DAILY Qty: 30 0RF Spiriva Respimat 2.5 mcg/actuation mist 2 puff inhalation DAILY Qty: 4 0RF atorvastatin [Lipitor] 40 mg tablet 40 mg PO QHS 30 Days Qty: 30 0RF carvedilol 6.25 mg tablet 6.25 mg PO BID 30 Days Qty: 60 0RF amiodarone 200 mg tablet 200 mg PO DAILY 30 Days Qty: 30 0RF sucralfate [Carafate] 100 mg/mL suspension 10 ml PO Q6H 30 Days Qty: 1000 0RF Rx Instructions: x 2 weeks clopidogrel [Plavix] 75 mg tablet 75 mg PO DAILY 30 Days Qty: 30 0RF pantoprazole [Protonix] 40 mg tablet,delayed release (DR/EC) 40 mg PO BID 30 Days Qty: 60 0RF furosemide 20 mg tablet 20 mg PO BIDLX 30 Days Qty: 60 0RF lisinopril 2.5 mg tablet 2.5 mg PO DAILY 30 Days Qty: 30 0RF rivaroxaban 20 mg tablet See Rx Instructions .ROUTE .COMPLEX 30 Days Qty: 30 0RF Dose Instruction: TAKE 1 TABLET BY MOUTH DAILY WITH EVENING MEAL Rx Instructions: TAKE 1 TABLET BY MOUTH DAILY WITH EVENING MEAL doxycycline hyclate 100 mg capsule 100 mg PO BID 4 Days Qty: 9 0RF ondansetron 4 mg tablet,disintegrating 4 mg PO Q8H PRN (Reason: nausea and vomiting) Qty: 10 0RF nicotine 10 mg/mL spray,non-aerosol 1 spray intranasal DAILY Qty: 40 6RF Rx Instructions: administer into each nostril Primary Care Provider: Sandy Barbosa Referrals: Sandy Barbosa MD [Primary Care Provider] - Activity Restrictions/Additional Instructions: Keep taking all of your home medicine Disposition Disposition: Home, Self Care
[2023-01-10 13:26] LABS: Absolute Lymphocyte Count 3.85 X10^3/uL (0.83-4.51); Absolute Neutrophil Count 7.7 X10^3/uL (2.0-7.7); Basophil# 0.05 X10^3/uL; Basophil% 0.4 % (0-1); Eosinophil# 0.39 X10^3/uL; Hematocrit 46.7 % (37-47); Hemoglobin 15.3 g/dL (12.0-15.0); Lymphocyte # 3.85 X10^3/ul (0.83-4.51); Lymphocyte % 29.8 % (19-41); Mean Corp Hgb Conc 32.8 g/dL (32-36); Mean Corpuscular Hgb 31.5 pg (27.0-32.0); Mean Corpuscular Volume 96.3 fL (81-99); Mean Platelet Vol. 8.6 fl (6.2-12.0); Monocyte# 0.83 X10^3/uL; Monocyte% 6.4 % (0-10); NRBC Flagged by Analyzer 0 % (0-5); Neutrophil # 7.71 X10^3/uL (2.7-7.7); Neutrophil % 59.7 % (47-70); Platelet Count 360 K/mm3 (150-450); RBC Distribution Width CV 12.9 % (11.6-14.6); RBC Distribution Width SD 45.3 fl (35.1-43.9); Red Blood Count 4.85 M/mm3 (4.2-5.4); White Blood Count 12.9 K/mm3 (4.4-11.0)
[2023-01-10 13:34] LABS: International Normalized Ratio 1.4; Prothrombin Time (Protime)PT. 17.3 SECONDS (11.7-14.9)
[2023-01-10 13:39] LABS: Anion Gap 7 (5-15); BUN 21 mg/dL (7-18); BUN/Creat Ratio 21.3 RATIO (10-20); Calcium,Total 9.7 mg/dL (8.5-10.1); Chloride 102 mmol/L (98-107); Creatinine, Serum 0.98 mg/dL (0.55-1.02); EST Glomerular Filtration Rate 60 mL/min (>60); Est Glom Filt Rate - Afr Amer 73 mL/min (>60); Estimated Creatinine Clearance 50.81 ml/min; Glucose 99 mg/dL (74-106); Potassium 3.8 mmol/L (3.5-5.1); Sodium Level 139 mmol/L (136-145); Troponin-I HS (w/2H Reflex) 70 pg/mL (3.0-54.0)
[2023-01-10 13:44] LABS: BNP,B-Type NATRIURETIC PEPTIDE 378.6 pg/mL (0-100)
[2023-01-10] MEDS: Ondansetron 4 MG/2 ML Vial IV (13:56)
[2023-01-10] MEDS: Morphine 4 MG/ML Syringe IV (14:34)
[2023-01-10 15:20] LABS: Reflex Troponin-HS? (from REC) Y
[2023-01-10 15:40] LABS: Troponin-I HS 61 pg/mL (3.0-54.0)
[2023-01-10 15:48] VITALS: BP 110/69; PULSE 76; RESP 19; O2SAT 96
== END 2023-01-10 15:55 | disposition home or self-care (01) ==
PROVIDERS: Nurse Practitioner; Emergency Provider Emergency Medicine; PCP Internal Medicine; Visit Provider Emergency Medicine
DX: R07.9 Chest pain, unspecified (principal); J44.9 Chronic obstructive pulmonary disease, unspecified; E78.5 Hyperlipidemia, unspecified; I25.10 Atherosclerotic heart disease of native coronary artery without angina pectoris; I25.5 Ischemic cardiomyopathy; I10 Essential (primary) hypertension; I25.2 Old myocardial infarction; G47.33 Obstructive sleep apnea (adult) (pediatric); F17.210 Nicotine dependence, cigarettes, uncomplicated; Z79.899 Other long term (current) drug therapy; Z79.01 Long term (current) use of anticoagulants; Z86.73 Personal history of transient ischemic attack (TIA), and cerebral infarction without residual deficits
CPT/HCPCS: 71045; 80048; 83880; 84484; 85025; 85610; 93005; 96374; 96375; 99283; A4216; J2405

== ENCOUNTER 2023-01-12 20:03 | Emergency (ER) | payer MEDICARE, MEDICAID, SELFPAY ==
[2023-01-12 20:03] VITALS: BP 135/96; PULSE 93; RESP 18; TEMP 36.6; O2SAT 98; BMI 30.9
--- NOTE | 2023-01-12 20:06 | EKG12_ITS ---
Test Reason : DYSRHYTHMIA Blood Pressure : / mmHG Vent. Rate : 088 BPM Atrial Rate : 088 BPM P-R Int : 122 ms QRS Dur : 102 ms QT Int : 326 ms P-R-T Axes : 056 -01 097 degrees QTc Int : 394 ms Sinus rhythm with Premature supraventricular complexes Left ventricular hypertrophy Inferior infarct , age undetermined Anterolateral infarct , age undetermined Abnormal ECG Confirmed by SAMUEL MARTINEZ, TABATHA ([id number]), news copy editor MICAH SALMERON ([id number]) on 01/14/2023 12:50:12 P M Referred By: MARTHA Confirmed By:SANDRA BAKER MD
[2023-01-12 20:18] LABS: Absolute Lymphocyte Count 3.52 X10^3/uL (0.83-4.51); Absolute Neutrophil Count 6.5 X10^3/uL (2.0-7.7); Basophil# 0.04 X10^3/uL; Basophil% 0.4 % (0-1); Eosinophil# 0.32 X10^3/uL; Eosinophils% 2.8 % (0-5); Hematocrit 44.9 % (37-47); Hemoglobin 14.7 g/dL (12.0-15.0); Lymphocyte # 3.52 X10^3/ul (0.83-4.51); Lymphocyte % 31.3 % (19-41); Mean Corp Hgb Conc 32.7 g/dL (32-36); Mean Corpuscular Hgb 31.5 pg (27.0-32.0); Mean Corpuscular Volume 96.1 fL (81-99); Mean Platelet Vol. 8.8 fl (6.2-12.0); Monocyte# 0.76 X10^3/uL; Monocyte% 6.8 % (0-10); NRBC Flagged by Analyzer 0 % (0-5); Neutrophil # 6.54 X10^3/uL (2.7-7.7); Neutrophil % 58.3 % (47-70); Platelet Count 329 K/mm3 (150-450); RBC Distribution Width SD 45.2 fl (35.1-43.9); Red Blood Count 4.67 M/mm3 (4.2-5.4); White Blood Count 11.2 K/mm3 (4.4-11.0)
[2023-01-12 20:28] LABS: International Normalized Ratio 1.1; Prothrombin Time (Protime)PT. 14.4 SECONDS (11.7-14.9)
--- NOTE | 2023-01-12 20:30 | RAD_ITS ---
STUDY: X-RAY CHEST REASON FOR EXAM: Female, 67 years old. chest pain TECHNIQUE: PA COMPARISON: January 10, 2023. FINDINGS: The lungs are clear and expanded. There is no demonstrated pleural abnormality. Heart is mildly enlarged. Normal mediastinum and dru. Normal visualized pulmonary arteries. Tortuous mildly calcified aortic arch and descending thoracic aorta. Normal visualized thoracic spine. Normal visualized ribs, clavicles, and shoulders. There is no demonstrated abnormality of the visualized soft tissue structures of the upper abdomen. RAD/Chest 1 View (Portable) IMPRESSION: ASHD. No acute cardiopulmonary pathology. Electronically Signed: Chucky Sampson MD at 20:55 EDT ,
[2023-01-12 20:40] LABS: Anion Gap 7 (5-15); BUN 14 mg/dL (7-18); BUN/Creat Ratio 15.7 RATIO (10-20); Calcium,Total 9.3 mg/dL (8.5-10.1); Chloride 108 mmol/L (98-107); Creatinine, Serum 0.89 mg/dL (0.55-1.02); EST Glomerular Filtration Rate 67 mL/min (>60); Est Glom Filt Rate - Afr Amer 82 mL/min (>60); Estimated Creatinine Clearance 55.95 ml/min; Glucose 102 mg/dL (74-106); Sodium Level 140 mmol/L (136-145); Troponin-I HS (w/2H Reflex) 47 pg/mL (3.0-54.0)
[2023-01-12 22:36] VITALS: O2SAT 97
[2023-01-12 22:41] VITALS: BP 122/85; PULSE 76; RESP 20; O2SAT 97
--- NOTE | 2023-01-13 00:32 | ED.VIS.CHEST ---
HPI History of Present Illness Chief Complaint: Other, Pain/Inj Narrative Narrative: 67-year-old female with history of CAD, ischemic cardiomyopathy, hypertension, hyperlipidemia presenting with chest pain. She states its somewhat retrosternal and pressure-like. It also radiates to the left upper shoulder. No shortness of breath, nausea or diaphoresis, lightheadedness had some last night which went away. Today she states she has had pain all day. Patient does state that she anticoagulated on Xarelto. She also states he has a history of GERD which she thinks might be causing some of her symptoms. No fevers, chills, cough. [facility] Medical History Anxiety and depression Atherosclerotic heart disease of [place] coronary artery without angina pectoris Calculus of left kidney COPD (chronic obstructive pulmonary disease) Depression Elevated troponin Essential hypertension GERD (gastroesophageal reflux disease) History of non-ST elevation myocardial infarction (NSTEMI) (09/01/21) Hyperlipidemia Ischemic cardiomyopathy Kidney stones Myocardial infarct Obesity (BMI 30.0-34.9) Old anterior wall myocardial infarction Opiate dependence EVELYN (obstructive sleep apnea) Osteoporosis Personal history of transient ischemic attack (TIA), and cerebral infarction without residual deficits Smoker Sustained SVT TIA (transient ischemic attack) Tobacco abuse Home Medications lorazepam 1 mg tablet 1 mg PO BID PRN PRN Anxiety 06/15/21 [History Last Taken Unknown] gabapentin 300 mg capsule 300 mg PO TID nerve pain #90 caps 01/01/22 [Rx Last Taken 08/11/22] ondansetron 4 mg disintegrating tablet 4 mg PO Q8H PRN nausea and vomiting #10 tabs 08/16/22 [Rx Last Taken Unknown] nicotine 10 mg/mL nasal spray 1 spray intranasal DAILY #40 mL 09/19/22 [Rx Last Taken Unknown] amiodarone 200 mg tablet 200 mg PO DAILY 30 days #30 tabs 01/04/23 [Rx Last Taken Unknown] atorvastatin 40 mg tablet (Lipitor) 40 mg PO QHS 30 days #30 tabs 01/04/23 [Rx Last Taken Unknown] carvedilol 6.25 mg tablet 6.25 mg PO BID 30 days #60 tabs 01/04/23 [Rx Last Taken Unknown] clopidogrel 75 mg tablet (Plavix) 75 mg PO DAILY 30 days #30 tabs 01/04/23 [Rx Last Taken Unknown] doxycycline hyclate 100 mg capsule 100 mg PO BID 4 days #9 caps 01/04/23 [Rx Last Taken Unknown] duloxetine 30 mg capsule,delayed release (Cymbalta) 30 mg PO DAILY #30 caps 01/04/23 [Rx Last Taken Unknown] furosemide 20 mg tablet 20 mg PO BIDLX 30 days #60 tabs 01/04/23 [Rx Last Taken Unknown] lisinopril 2.5 mg tablet 2.5 mg PO DAILY 30 days #30 tabs 01/04/23 [Rx Last Taken Unknown] pantoprazole 40 mg tablet,delayed release (Protonix) 40 mg PO BID 30 days #60 tabs 01/04/23 [Rx Last Taken Unknown] prednisone 20 mg tablet 40 mg PO DAILY 4 days #8 tabs 01/04/23 [Rx Last Taken Unknown] rivaroxaban 20 mg tablet See Rx Instructions .Route .COMPLEX 30 days #30 tabs 01/04/23 [Rx Last Taken Unknown] sucralfate 100 mg/mL oral suspension (Carafate) 10 ml PO Q6H 30 days #1,000 mL 01/04/23 [Rx Last Taken Unknown] tiotropium bromide 2.5 mcg/actuation mist for inhalation (Spiriva Respimat) 2 puff inhalation DAILY #4 grams 01/04/23 [Rx Last Taken Unknown] ondansetron 4 mg disintegrating tablet 4 mg PO Q8H PRN PRN Nausea #12 tabs 01/13/23 [Rx Last Taken Unknown] sucralfate 100 mg/mL oral suspension (Carafate) 10 ml PO BID #400 mL 01/13/23 [Rx Last Taken Unknown] Allergy/AdvReac Type Severity Reaction Status Date / Time No Known Allergies Allergy Verified 01/10/23 13:08 Family History Mother Hypertension CAD (coronary artery disease) CVA (cerebral vascular accident) Myocardial infarction Grandmother Myocardial infarction Surgical History History of hysterectomy History of left heart catheterization (01/20/22) History of total hysterectomy Hx of appendectomy Social History household members: none Smoking Status: Current some day smoker tobacco type: cigarettes alcohol intake: never substance use type: does not use EXAM Physical Exam Const Vital Signs: 01/12/23 20:03 01/12/23 22:36 01/12/23 22:41 Temperature 97.8 F Temperature Source Temporal Pulse Rate 93 76 Respiratory Rate 18 20 H Respiratory Effort Respiratory Pattern Blood Pressure 135/96 H 122/85 H Blood Pressure Mean 109 97 Pulse Ox 98 97 97 Oxygen Delivery Method Room Air Room Air Room Air 01/12/23 22:45 Temperature Temperature Source Pulse Rate Respiratory Rate Respiratory Effort Normal Non-Labored Respiratory Pattern Normal Blood Pressure Blood Pressure Mean Pulse Ox Oxygen Delivery Method Positive well nourished General Appearance ED: NAD; Negative for pallor HEENT Reports moist mucous membranes normocephalic Eyes PERRL and EOMs intact bilaterally Chest Wall inspection of chest normal Resp normal respiratory effort and clear to auscultation bilaterally Auscultation: Negative for rales, rhonchi or wheezes Cardio regular rate and regular rhythm GI normal to inspection, nondistended, normoactive bowel sounds Extremity General Extremety ED: Negative for edema or tenderness General Extremity: Negative for edema Neuro oriented x3 and CN's II-XII intact bilaterally Sensorium / Orientation: awake and alert Psych mental status grossly normal Skin no rashes or lesions noted General Skin Exam: Negative for jaundice or pallor Heart Score History: Slightly/Non-Suspicious ECG: Normal Age: >/= 65 years Risk Factors: >/= 3 Risk Factors or History of CAD Troponin: </= Normal Limit Score: 4 MDM MDM MDM Narrative Medical decision making narrative: Patient presenting with chest pain which is been present for most of the day. Definitely this has been greater than 12 hours. She states it does feel like it is retrosternal and does radiate to the left shoulder. No lightheadedness, dizziness, diaphoresis. She does admit to some nausea at this point. She also feels like she has acid reflux symptoms. Differential includes ACS, GERD, pneumonia. Considered pneumothorax however she has equal symmetric breath sounds and chest wall rise. Unlikely to be PE because she is anticoagulated. CBC was obtained to assess white blood cell count and this is essentially normal at 11.2. Hemoglobin macular stable, platelets are normal. Renal function electrolytes within normal limits. High-sensitivity troponin is 47 after having pain all day. I do not believe she needs repeat troponin. She is requesting something for acid reflux symptoms and nausea and I will provide her with Carafate and Zofran. Return precautions were discussed. Impression: 1. Chest pain?noncardiac 2. Dyspepsia Lab Data Labs: Laboratory Results - last 24 hr 01/12/23 01/12/23 01/12/23 20:15 20:15 20:15 WBC 11.2 H RBC 4.67 Hgb 14.7 Hct 44.9 MCV 96.1 MCH 31.5 MCHC 32.7 RDW Std Deviation 45.2 H RDW Coeff of Sariah 13.0 Plt Count 329 MPV 8.8 Immature Gran % (Auto) 0.400 Neut % (Auto) 58.3 Lymph % (Auto) 31.3 [place] % (Auto) 6.8 Eos % (Auto) 2.8 Baso % (Auto) 0.4 Absolute Neuts (auto) 6.5 Absolute Lymphs (auto) 3.52 Nucleated RBC % 0 PT 14.4 INR 1.1 Sodium 140 Potassium 4.0 Chloride 108 H Carbon Dioxide 25.0 Anion Gap 7 BUN 14 Creatinine 0.89 Estim Creat Clear Calc 55.95 Est GFR (MDRD) Af Amer 82 Est GFR (MDRD) Non-Af 67 BUN/Creatinine Ratio 15.7 Glucose 102 Calcium 9.3 Troponin I High Sens 47 Radiography Diagnostic Testing: Clinical Impression(s) from Imaging Studies Chest X-Ray 01/12/23 20:30 IMPRESSION: ASHD. No acute cardiopulmonary pathology. Electronically Signed: Chucky Sampson MD at 20:55 EDT Reading Location ID and State: [facility] / [place] , Service support , Discharge Plan Triage Chief Complaint: Other, Pain/Inj ED Provider: Juan David Chambers Dx/Rx/DC Orders Instructions: ED Chest Pain, Noncardiac, ED GERD (Adult) Prescriptions: New ondansetron 4 mg tablet,disintegrating 4 mg PO Q8H PRN PRN (Reason: Nausea) Qty: 12 0RF sucralfate [Carafate] 100 mg/mL suspension 10 ml PO BID Qty: 400 0RF No Action lorazepam 1 mg tablet 1 mg PO BID PRN PRN (Reason: Anxiety) Label Comments: take 1 tablet by mouth twice a day if needed gabapentin 300 MG capsule 300 mg PO TID Qty: 90 0RF prednisone 20 mg Tablet 40 mg PO DAILY 4 Days Qty: 8 0RF duloxetine [Cymbalta] 30 mg capsule,delayed release(DR/EC) 30 mg PO DAILY Qty: 30 0RF Spiriva Respimat 2.5 mcg/actuation mist 2 puff inhalation DAILY Qty: 4 0RF atorvastatin [Lipitor] 40 mg tablet 40 mg PO QHS 30 Days Qty: 30 0RF carvedilol 6.25 mg tablet 6.25 mg PO BID 30 Days Qty: 60 0RF amiodarone 200 mg tablet 200 mg PO DAILY 30 Days Qty: 30 0RF sucralfate [Carafate] 100 mg/mL suspension 10 ml PO Q6H 30 Days Qty: 1000 0RF Rx Instructions: x 2 weeks clopidogrel [Plavix] 75 mg tablet 75 mg PO DAILY 30 Days Qty: 30 0RF pantoprazole [Protonix] 40 mg tablet,delayed release (DR/EC) 40 mg PO BID 30 Days Qty: 60 0RF furosemide 20 mg tablet 20 mg PO BIDLX 30 Days Qty: 60 0RF lisinopril 2.5 mg tablet 2.5 mg PO DAILY 30 Days Qty: 30 0RF rivaroxaban 20 mg tablet See Rx Instructions .ROUTE .COMPLEX 30 Days Qty: 30 0RF Dose Instruction: TAKE 1 TABLET BY MOUTH DAILY WITH EVENING MEAL Rx Instructions: TAKE 1 TABLET BY MOUTH DAILY WITH EVENING MEAL doxycycline hyclate 100 mg capsule 100 mg PO BID 4 Days Qty: 9 0RF ondansetron 4 mg tablet,disintegrating 4 mg PO Q8H PRN (Reason: nausea and vomiting) Qty: 10 0RF nicotine 10 mg/mL spray,non-aerosol 1 spray intranasal DAILY Qty: 40 6RF Rx Instructions: administer into each nostril Primary Care Provider: Sandy Barbosa Referrals: Sandy Barbosa MD [Primary Care Provider] - Friend,DO Rakesh [Med Staff - Active Staff] - 3-5 Days Disposition Disposition: Home, Self Care
[2023-01-13] MEDS: Ondansetron ODT 4 MG Tablet PO (00:40)
[2023-01-13 00:43] VITALS: BP 143/69; PULSE 81; RESP 15; O2SAT 96
== END 2023-01-13 00:44 | disposition home or self-care (01) ==
PROVIDERS: Emergency Provider Student in an Organized Health Care Education/Training Program; PCP Internal Medicine; Visit Provider Student in an Organized Health Care Education/Training Program
DX: R07.89 Other chest pain (principal); J44.9 Chronic obstructive pulmonary disease, unspecified; I25.10 Atherosclerotic heart disease of native coronary artery without angina pectoris; I10 Essential (primary) hypertension; I25.5 Ischemic cardiomyopathy; I25.2 Old myocardial infarction; E78.5 Hyperlipidemia, unspecified; K21.9 Gastro-esophageal reflux disease without esophagitis; F17.210 Nicotine dependence, cigarettes, uncomplicated; Z79.01 Long term (current) use of anticoagulants; Z79.02 Long term (current) use of antithrombotics/antiplatelets; Z79.899 Other long term (current) drug therapy; Z86.73 Personal history of transient ischemic attack (TIA), and cerebral infarction without residual deficits; Z82.49 Family history of ischemic heart disease and other diseases of the circulatory system
CPT/HCPCS: 71045; 80048; 84484; 85025; 85610; 93005; 99285; J7030; A4216

== ENCOUNTER 2023-01-14 13:20 | Emergency (ER) | payer MEDICARE, MEDICAID, SELFPAY ==
[2023-01-14 13:22] VITALS: BP 130/93; PULSE 90; RESP 16; TEMP 36.6; O2SAT 97; BMI 30.6
--- NOTE | 2023-01-14 14:12 | CT_ITS ---
STUDY: CT ABDOMEN AND PELVIS WITH CONTRAST REASON FOR EXAM: Female, 67 years old. abdominal pain RADIATION DOSAGE (If Supplied By Facility): CTDIvol = ( 22.09 ) mGy, DLP = ( 1059.23 ) mGycm TECHNIQUE: Transaxial images were obtained from the dome of the diaphragm to the symphysis pubis without oral contrast. IV 100mL Isovue-370 was administered. Sagittal and coronal images were reconstructed. Individualized dose optimization techniques were used for this CT. COMPARISON: August 02, 2022. FINDINGS: The visualized lung bases are unremarkable. The visualized portions of the heart are within normal limits. Normal liver. Intraluminal density within the gallbladder possibly representing sludge or polyps. No calcified stones.. Normal spleen. Normal pancreas. Normal bilateral adrenal glands. Normal right kidney. Tiny nonobstructing left renal calculi Normal visualized stomach. Normal small intestine. Scattered diverticular changes of the colon without evidence for acute diverticulitis. Normal appendix is not visualized suggesting prior appendectomy. No secondary signs of acute appendicitis Atherosclerotic changes of the aorta with also loculated mid to distal aortic aneurysm with maximum dimensions of 3.55 x 2.85 cm proximally and 3.25 x 3.45 cm distally. Normal inferior vena cava. Normal retroperitoneum. Normal urinary bladder. Uterus not visualized status post hysterectomy Small periumbilical hernia containing fat.. Lumbar spine demonstrates degenerative change Normal osseous structures. CT/Abdomen/Pelvis W IV Cont ONLY IMPRESSION: Intraluminal density within the gallbladder possibly representing polyps or nonshadowing stones.. If concern for gallbladder disease ultrasound recommended Minor diverticular disease of the colon without evidence for acute diverticulitis Multilobulated mid to distal abdominal aortic aneurysm. No evidence for periaortic leak or dissection Electronically Signed: Chucky Sampson MD at 16:18 EDT Reading Location ID and State: [facility] / [place] , Service support ,
--- NOTE | 2023-01-14 14:16 | EDS_ITS ---
HPI HPI - GI History of Present Illness Chief Complaint: Abd Pain Narrative Narrative: 67-year-old female presenting with abdominal pain. She states that she has had some right-sided abdominal pain in the right upper quadrant in the right lower quadrant. She describes it as aching. Previously seen in the ER for abdominal pain referred to Dr. Martinez. She does not need to follow-up. She reports today that she had some vaginal spotting. She has a history of a total hysterectomy distantly. She states she does not have ovaries or cervix. She not had any vaginal discharge. She states this began when she was at a care home while visiting her family. She states I am afraid I am bleeding internally. She does not have any dizziness lightheadedness, shortness of breath. She denies black or bloody stools. Patient is on Plavix and Xarelto. No fevers, chills. No urinary complaints. [facility] Medical History Anxiety and depression Atherosclerotic heart disease of [place] coronary artery without angina pectoris Calculus of left kidney COPD (chronic obstructive pulmonary disease) Depression Elevated troponin Essential hypertension GERD (gastroesophageal reflux disease) History of non-ST elevation myocardial infarction (NSTEMI) (09/01/21) Hyperlipidemia Ischemic cardiomyopathy Kidney stones Myocardial infarct Obesity (BMI 30.0-34.9) Old anterior wall myocardial infarction Opiate dependence EVELYN (obstructive sleep apnea) Osteoporosis Personal history of transient ischemic attack (TIA), and cerebral infarction without residual deficits Smoker Sustained SVT TIA (transient ischemic attack) Tobacco abuse Home Medications lorazepam 1 mg tablet 1 mg PO BID PRN PRN Anxiety 06/15/21 [History Last Taken Unknown] gabapentin 300 mg capsule 300 mg PO TID nerve pain #90 caps 01/01/22 [Rx Last Taken 08/11/22] amiodarone 200 mg tablet 200 mg PO DAILY 30 days #30 tabs 01/04/23 [Rx Last Taken Unknown] atorvastatin 40 mg tablet (Lipitor) 40 mg PO QHS 30 days #30 tabs 01/04/23 [Rx Last Taken Unknown] carvedilol 6.25 mg tablet 6.25 mg PO BID 30 days #60 tabs 01/04/23 [Rx Last Taken Unknown] clopidogrel 75 mg tablet (Plavix) 75 mg PO DAILY 30 days #30 tabs 01/04/23 [Rx Last Taken Unknown] doxycycline hyclate 100 mg capsule 100 mg PO BID 4 days #9 caps 01/04/23 [Rx Last Taken Unknown] duloxetine 30 mg capsule,delayed release (Cymbalta) 30 mg PO DAILY #30 caps 01/04/23 [Rx Last Taken Unknown] furosemide 20 mg tablet 20 mg PO BIDLX 30 days #60 tabs 01/04/23 [Rx Last Taken Unknown] lisinopril 2.5 mg tablet 2.5 mg PO DAILY 30 days #30 tabs 01/04/23 [Rx Last Taken Unknown] pantoprazole 40 mg tablet,delayed release (Protonix) 40 mg PO BID 30 days #60 tabs 01/04/23 [Rx Last Taken Unknown] rivaroxaban 20 mg tablet See Rx Instructions .Route .COMPLEX 30 days #30 tabs 01/04/23 [Rx Last Taken Unknown] sucralfate 100 mg/mL oral suspension (Carafate) 10 ml PO Q6H 30 days #1,000 mL 01/04/23 [Rx Last Taken Unknown] tiotropium bromide 2.5 mcg/actuation mist for inhalation (Spiriva Respimat) 2 puff inhalation DAILY #4 grams 01/04/23 [Rx Last Taken Unknown] ondansetron 4 mg disintegrating tablet 4 mg PO Q8H PRN PRN Nausea #12 tabs 01/13/23 [Rx Last Taken Unknown] Allergy/AdvReac Type Severity Reaction Status Date / Time No Known Allergies Allergy Verified 01/14/23 13:24 Family History Mother Hypertension CAD (coronary artery disease) CVA (cerebral vascular accident) Myocardial infarction Grandmother Myocardial infarction Surgical History History of hysterectomy History of left heart catheterization (01/20/22) History of total hysterectomy Hx of appendectomy Social History household members: none Smoking Status: Current some day smoker tobacco type: cigarettes alcohol intake: never substance use type: does not use ROS ROS ED Constitutional Constitutional ED: Denies chills, fever(s) or sweats Eyes Eyes: Denies blurry vision or change in vision ENT ENT ED: Denies ear pain or sore throat Cardiovascular Cardiovascular: Denies chest pain, palpitations or racing heartbeat Respiratory/Chest Respiratory/Chest: Denies cough, dyspnea or sputum Gastrointestinal Gastrointestinal: Reports abdominal pain; Denies constipation, diarrhea, nausea or vomiting Genitourinary Genitourinary ED: Reports other Details: Vaginal spotting ; Denies dysuria, hematuria or urinary frequency Musculoskeletal Musculoskeletal: Denies arthralgias, myalgias or neck pain Integumentary Denies abscess, Abrasions or rash Neurologic Neurologic: Denies headache(s), paresthesias or weakness Psychiatric Psychiatric: Denies anxiety, depression, suicidal ideation or suicidal thoughts Endocrine Endocrinology: Denies polydipsia or polyuria EXAM Physical Exam Const Vital Signs: 01/14/23 13:22 01/14/23 16:04 01/14/23 18:27 Temperature 97.8 F Temperature Source Temporal Pulse Rate 90 65 65 Respiratory Rate 16 16 18 Blood Pressure 130/93 H 136/71 H 139/77 H Blood Pressure Mean 105 92 97 Pulse Ox 97 97 98 Oxygen Delivery Method Room Air Room Air Room Air Positive well nourished and obese General Appearance ED: NAD; Negative for pallor Nutritional Appearance: obese HEENT Reports moist mucous membranes normocephalic and atraumatic Eyes PERRL and EOMs intact bilaterally General Eye ED: Negative for pale conjunctiva or scleral icterus Resp normal respiratory effort and clear to auscultation bilaterally Auscultation: Negative for rales, rhonchi or wheezes Cardio regular rate and regular rhythm GI Palpation: tender RLQ and RUQ Back/Spine no CVA tenderness Neuro CN's II-XII intact bilaterally Sensorium / Orientation: alert Motor Exam: strength 5/5 throughout Psych Mood & Affect: anxious and tearful Skin no wounds General Skin Exam: Negative for jaundice or pallor MDM MDM MDM Narrative Medical decision making narrative: Patient presenting with abdominal pain which has been an ongoing issue. She is concerned she has internal bleeding because she had some vaginal spotting today. With the vaginal bleeding we will do a pelvic exam today. CBC to assess white blood cell count, hemoglobin, platelets. CMP to assess liver function, renal function, glucose, anion gap. Lipase to assess for pancreatitis. CT abdomen pelvis will be obtained to see where the pain is. CBC shows normal white blood cell count 8.6, hemoglobin and hematocrit are stable. Alkaline phosphatase somewhat elevated but otherwise LFTs are normal. Renal function electrolytes within normal limits. Glucose is normal. Urinalysis is negative for infection. CT of the abdomen pelvis with IV contrast was obtained and shows density in the gallbladder which may be stones. This also shows a stable aneurysm which has been present previously. Right upper quadrant ultrasound will be obtained. I did offer to do a pelvic exam for the patient to assess for the recent bleeding. She defers this at this time. I stressed at length that she will need to follow-up with gynecology for this. She acknowledges understanding. Right upper quadrant ultrasound came back normal. I think the patient is stable for discharge at this time. Return precautions discussed. Impression: 1. Abdominal pain 2. Vaginal bleeding Lab Data Labs: Laboratory Results - last 24 hr 01/14/23 01/14/23 01/14/23 14:40 14:40 15:50 WBC 8.6 RBC 4.65 Hgb 14.7 Hct 44.8 MCV 96.3 MCH 31.6 MCHC 32.8 RDW Std Deviation 46.0 H RDW Coeff of Sariah 13.1 Plt Count 310 MPV 8.8 Immature Gran % (Auto) 0.300 Neut % (Auto) 58.8 Lymph % (Auto) 29.9 Jones % (Auto) 7.4 Eos % (Auto) 3.0 Baso % (Auto) 0.6 Absolute Neuts (auto) 5.1 Absolute Lymphs (auto) 2.57 Nucleated RBC % 0 Sodium 141 Potassium 4.1 Chloride 105 Carbon Dioxide 29.0 Anion Gap 7 BUN 16 Creatinine 0.94 Estim Creat Clear Calc 52.97 Est GFR (MDRD) Af Amer 76 Est GFR (MDRD) Non-Af 63 BUN/Creatinine Ratio 16.9 Glucose 92 Calcium 9.6 Total Bilirubin 0.50 AST 12 L ALT 15 Alkaline Phosphatase 196 H Total Protein 7.5 Albumin 3.3 Globulin 4.2 Albumin/Globulin Ratio 0.8 L Lipase 27 Urine Color Yellow Urine Clarity Clear Urine pH 6.0 Ur Specific [place] 1.020 Urine Protein 15 H Urine Glucose (UA) Normal Urine Ketones 15 H Urine Occult Blood 25 H Urine Nitrite Negative Urine Bilirubin Negative Urine Urobilinogen 1 H Ur Leukocyte Esterase Negative Urine RBC 0-5 SEEN Urine WBC 0 SEEN Ur Squamous Epith Cells 0 SEEN Urine Bacteria 0 SEEN Urine Mucus 0 SEEN Radiography Diagnostic Testing: Clinical Impression(s) from Imaging Studies Abdomen/Pelvis CT 01/14/23 14:12 IMPRESSION: Intraluminal density within the gallbladder possibly representing polyps or nonshadowing stones.. If concern for gallbladder disease ultrasound recommended Minor diverticular disease of the colon without evidence for acute diverticulitis Multilobulated mid to distal abdominal aortic aneurysm. No evidence for periaortic leak or dissection Electronically Signed: Chucky Sampson MD at 16:18 EDT , Gallbladder Ultrasound 01/14/23 16:21 IMPRESSION: Mildly enlarged liver without discrete space-occupying lesion or dilated intrahepatic ducts. No evidence for gallstones or acute cholecystitis. Common bile duct is mildly distended of uncertain etiology and clinical significance. If clinically warranted as per elevated bilirubin MRI/MRCP would be helpful for further assessment Electronically Signed: Chucky Sampson MD at 17:57 EDT , Discharge Plan Triage Chief Complaint: Abd Pain ED Provider: Juan David Chambers Dx/Rx/DC Orders Instructions: Understanding Uterine Bleeding, ED Abdominal Pain Unkn Cause Fem Prescriptions: No Action lorazepam 1 mg tablet 1 mg PO BID PRN PRN (Reason: Anxiety) Label Comments: take 1 tablet by mouth twice a day if needed gabapentin 300 MG capsule 300 mg PO TID Qty: 90 0RF duloxetine [Cymbalta] 30 mg capsule,delayed release(DR/EC) 30 mg PO DAILY Qty: 30 0RF Spiriva Respimat 2.5 mcg/actuation mist 2 puff inhalation DAILY Qty: 4 0RF atorvastatin [Lipitor] 40 mg tablet 40 mg PO QHS 30 Days Qty: 30 0RF carvedilol 6.25 mg tablet 6.25 mg PO BID 30 Days Qty: 60 0RF amiodarone 200 mg tablet 200 mg PO DAILY 30 Days Qty: 30 0RF sucralfate [Carafate] 100 mg/mL suspension 10 ml PO Q6H 30 Days Qty: 1000 0RF Rx Instructions: x 2 weeks clopidogrel [Plavix] 75 mg tablet 75 mg PO DAILY 30 Days Qty: 30 0RF pantoprazole [Protonix] 40 mg tablet,delayed release (DR/EC) 40 mg PO BID 30 Days Qty: 60 0RF furosemide 20 mg tablet 20 mg PO BIDLX 30 Days Qty: 60 0RF lisinopril 2.5 mg tablet 2.5 mg PO DAILY 30 Days Qty: 30 0RF rivaroxaban 20 mg tablet See Rx Instructions .ROUTE .COMPLEX 30 Days Qty: 30 0RF Dose Instruction: TAKE 1 TABLET BY MOUTH DAILY WITH EVENING MEAL Rx Instructions: TAKE 1 TABLET BY MOUTH DAILY WITH EVENING MEAL doxycycline hyclate 100 mg capsule 100 mg PO BID 4 Days Qty: 9 0RF ondansetron 4 mg tablet,disintegrating 4 mg PO Q8H PRN PRN (Reason: Nausea) Qty: 12 0RF Primary Care Provider: Sandy Barbosa Referrals: Marcel Yuan MD [Med Staff - Active Staff] - As soon as possible Sandy Barbosa MD [Primary Care Provider] - Disposition Disposition: Home, Self Care
[2023-01-14 14:47] LABS: Absolute Lymphocyte Count 2.57 X10^3/uL (0.83-4.51); Absolute Neutrophil Count 5.1 X10^3/uL (2.0-7.7); Basophil# 0.05 X10^3/uL; Basophil% 0.6 % (0-1); Eosinophil# 0.26 X10^3/uL; Hematocrit 44.8 % (37-47); Hemoglobin 14.7 g/dL (12.0-15.0); Lymphocyte # 2.57 X10^3/ul (0.83-4.51); Lymphocyte % 29.9 % (19-41); Mean Corp Hgb Conc 32.8 g/dL (32-36); Mean Corpuscular Hgb 31.6 pg (27.0-32.0); Mean Corpuscular Volume 96.3 fL (81-99); Mean Platelet Vol. 8.8 fl (6.2-12.0); Monocyte# 0.64 X10^3/uL; Monocyte% 7.4 % (0-10); NRBC Flagged by Analyzer 0 % (0-5); Neutrophil # 5.05 X10^3/uL (2.7-7.7); Neutrophil % 58.8 % (47-70); Platelet Count 310 K/mm3 (150-450); RBC Distribution Width CV 13.1 % (11.6-14.6); Red Blood Count 4.65 M/mm3 (4.2-5.4); White Blood Count 8.6 K/mm3 (4.4-11.0)
[2023-01-14 15:01] LABS: ALB/GLOB Ratio 0.8 RATIO (0.9-2.4); AST(SGOT) 12 U/L (15-37); Alanine Aminotransfer ALT/SGPT 15 U/L (13-56); Albumin, Serum 3.3 g/dL (3.2-5.0); Alkaline Phosphatase 196 U/L (45-117); Anion Gap 7 (5-15); BUN 16 mg/dL (7-18); BUN/Creat Ratio 16.9 RATIO (10-20); Calcium,Total 9.6 mg/dL (8.5-10.1); Chloride 105 mmol/L (98-107); Creatinine, Serum 0.94 mg/dL (0.55-1.02); EST Glomerular Filtration Rate 63 mL/min (>60); Est Glom Filt Rate - Afr Amer 76 mL/min (>60); Estimated Creatinine Clearance 52.97 ml/min; Globulin 4.2 g/dL (2.2-4.2); Glucose 92 mg/dL (74-106); Lipase 27 U/L (13-75); Potassium 4.1 mmol/L (3.5-5.1); Protein, Total 7.5 g/dL (6.4-8.2); Sodium Level 141 mmol/L (136-145)
[2023-01-14 16:04] VITALS: BP 136/71; PULSE 65; RESP 16; O2SAT 97
[2023-01-14 16:04] LABS: Bacteria 0 SEEN /hpf (None Seen); Mucous, Urine 0 SEEN /hpf (<or=2+); Squamous Epithelial Cells - UA 0 SEEN /hpf (5-10); White Blood Cells 0 SEEN /hpf (0-5)
[2023-01-14 16:13] LABS: Color, Urine Yellow (Yellow); Glucose, Dipstick Normal (Normal); Ketone-Dipstick 15 mg/dl (Negative); Leukocyte Esterase-Dipstick Negative /ul (Negative); Nitrite-Dipstick Negative (Negative); Occult Blood-Urine 25 /ul (Negative); Protein-Dipstick 15 mg/dl (Negative); Urine Bilirubin Dipstick Negative (Negative); Urine Clarity Clear (Clear); Urine Urobilinogen 1 mg/dl (Normal)
[2023-01-14] MEDS: Ondansetron 4 MG/2 ML Vial IV (16:14)
[2023-01-14 16:19] LABS: Red Blood Cells-Urine 0-5 SEEN /hpf (0-5)
--- NOTE | 2023-01-14 16:21 | US_ITS ---
STUDY: ABDOMINAL ULTRASOUND - RIGHT UPPER QUADRANT REASON FOR VISIT: Female, 67 years old ab pain TECHNIQUE: Ultrasound evaluation of the right upper quadrant was performed with real-time and static hays-scale imaging. TECHNICAL QUALITY: Adequate. COMPARISON: None. FINDINGS: Liver: The liver measures 17.6 cm. There is normal echogenicity of the liver. The bile ducts are within normal limits. There is hepatic color flow. The direction of portal flow is hepatopetal. There is no demonstrated mass lesion. Gallbladder: Normal distended gallbladder. The gallbladder wall measures 1.9 mm. There is a negative sonographic Sanchez''s sign. There is no pericholecystic fluid. There are no gallstones. Common Bile Duct (C.B.D.): The common bile duct measures 7 mm without evidence for intraductal stone. Pancreas: Normal size of the head, body and tail of the pancreas. There is normal echogenicity of the pancreas. There is no demonstrated pancreatic mass or cyst. Right Kidney: Normal size of the right kidney. The right kidney measures 12.1 x 4.8 x 4.3 cm. Normal renal cortex. The right cortex measures 1.4 cm. There is no demonstrated renal mass or cyst. There is no right hydronephrosis. US/Gallbladder IMPRESSION: Mildly enlarged liver without discrete space-occupying lesion or dilated intrahepatic ducts. No evidence for gallstones or acute cholecystitis. Common bile duct is mildly distended of uncertain etiology and clinical significance. If clinically warranted as per elevated bilirubin MRI/MRCP would be helpful for further assessment Electronically Signed: Chucky Sampson MD at 17:57 EDT ,
[2023-01-14 18:27] VITALS: BP 139/77; PULSE 65; RESP 18; O2SAT 98
[2023-01-14] MEDS: Ketorolac 15 MG/ML Vial IV (19:01)
== END 2023-01-14 19:14 | disposition home or self-care (01) ==
PROVIDERS: Emergency Provider Student in an Organized Health Care Education/Training Program; PCP Internal Medicine; Visit Provider Student in an Organized Health Care Education/Training Program
DX: N93.9 Abnormal uterine and vaginal bleeding, unspecified (principal); J44.9 Chronic obstructive pulmonary disease, unspecified; R10.11 Right upper quadrant pain; R10.31 Right lower quadrant pain; I25.10 Atherosclerotic heart disease of native coronary artery without angina pectoris; I25.2 Old myocardial infarction; I10 Essential (primary) hypertension; E78.5 Hyperlipidemia, unspecified; F17.210 Nicotine dependence, cigarettes, uncomplicated; Z90.49 Acquired absence of other specified parts of digestive tract; Z90.710 Acquired absence of both cervix and uterus; Z79.02 Long term (current) use of antithrombotics/antiplatelets; Z79.899 Other long term (current) drug therapy; Z86.73 Personal history of transient ischemic attack (TIA), and cerebral infarction without residual deficits
CPT/HCPCS: 74177; 76705; 80053; 81001; 83690; 85025; 96374; 96375; 99284; Q9967; A4216; J2405

== ENCOUNTER 2023-01-16 07:31 | Emergency (ER) | payer MEDICARE, MEDICAID, SELFPAY ==
[2023-01-16 07:31] VITALS: BP 157/88; PULSE 85; RESP 16; TEMP 36.7; O2SAT 95; BMI 32.0
--- NOTE | 2023-01-16 08:04 | EX.ED.DYSGE1 ---
HPI History of Present Illness Chief Complaint: Chest Pain Informant: patient and family (daughter) Onset/Context/Timing Onset: Month(s) Narrative Narrative: Patient presents for chronic pains and symptoms that have been going on for 6-12 months and anxiety, saying that she is out of her Ativan, she thinks that is contributing to all of her symptoms, and her daughter also states that she is here looking for the possibility of placement to fdc facility. This is a complex case. The patient is experiencing pain when she swallows. The pain is in her left shoulder and her upper abdomen. She states whenever she swallows liquids or food she has pain immediately. This past night, she states she was up all night sick after having the pain. There is not a delay with the onset of pain after eating but she does have some pain in her right upper quadrant and they are both concerned that she may have gallstones because they were told that at some point in the past. She states she has been generally weak for about 3 weeks and trouble getting around her house/apartment because of feeling very weak and sweating but no other exertional specific symptoms. She was admitted about 2 weeks ago because of these symptoms and an elevated troponin. [facility] Medical History Anxiety and depression Atherosclerotic heart disease of enterprise coronary artery without angina pectoris Calculus of left kidney COPD (chronic obstructive pulmonary disease) Depression Elevated troponin Essential hypertension GERD (gastroesophageal reflux disease) History of non-ST elevation myocardial infarction (NSTEMI) (09/01/21) Hyperlipidemia Ischemic cardiomyopathy Kidney stones Myocardial infarct Obesity (BMI 30.0-34.9) Old anterior wall myocardial infarction Opiate dependence EVELYN (obstructive sleep apnea) Osteoporosis Personal history of transient ischemic attack (TIA), and cerebral infarction without residual deficits Smoker Sustained SVT TIA (transient ischemic attack) Tobacco abuse Home Medications lorazepam 1 mg tablet 1 mg PO BID PRN PRN Anxiety 06/15/21 [History Last Taken Unknown] gabapentin 300 mg capsule 300 mg PO TID nerve pain #90 caps 01/01/22 [Rx Last Taken 08/11/22] amiodarone 200 mg tablet 200 mg PO DAILY 30 days #30 tabs 01/04/23 [Rx Last Taken Unknown] atorvastatin 40 mg tablet (Lipitor) 40 mg PO QHS 30 days #30 tabs 01/04/23 [Rx Last Taken Unknown] carvedilol 6.25 mg tablet 6.25 mg PO BID 30 days #60 tabs 01/04/23 [Rx Last Taken Unknown] clopidogrel 75 mg tablet (Plavix) 75 mg PO DAILY 30 days #30 tabs 01/04/23 [Rx Last Taken Unknown] duloxetine 30 mg capsule,delayed release (Cymbalta) 30 mg PO DAILY #30 caps 01/04/23 [Rx Last Taken Unknown] furosemide 20 mg tablet 20 mg PO BIDLX 30 days #60 tabs 01/04/23 [Rx Last Taken Unknown] lisinopril 2.5 mg tablet 2.5 mg PO DAILY 30 days #30 tabs 01/04/23 [Rx Last Taken Unknown] pantoprazole 40 mg tablet,delayed release (Protonix) 40 mg PO BID 30 days #60 tabs 01/04/23 [Rx Last Taken Unknown] rivaroxaban 20 mg tablet See Rx Instructions .Route .COMPLEX 30 days #30 tabs 01/04/23 [Rx Last Taken Unknown] sucralfate 100 mg/mL oral suspension (Carafate) 10 ml PO Q6H 30 days #1,000 mL 01/04/23 [Rx Last Taken Unknown] tiotropium bromide 2.5 mcg/actuation mist for inhalation (Spiriva Respimat) 2 puff inhalation DAILY #4 grams 01/04/23 [Rx Last Taken Unknown] ondansetron 4 mg disintegrating tablet 4 mg PO Q8H PRN PRN Nausea #12 tabs 01/13/23 [Rx Last Taken Unknown] Allergy/AdvReac Type Severity Reaction Status Date / Time No Known Allergies Allergy Verified 01/16/23 07:34 Family History Mother Hypertension CAD (coronary artery disease) CVA (cerebral vascular accident) Myocardial infarction Grandmother Myocardial infarction Surgical History History of hysterectomy History of left heart catheterization (01/20/22) History of total hysterectomy Hx of appendectomy Social History household members: none Smoking Status: Current some day smoker tobacco type: cigarettes alcohol intake: never substance use type: does not use ROS ROS ED Constitutional Constitutional ED: Reports malaise and sweats; Denies chills or fever(s) Eyes Eyes: Denies change in vision or diplopia ENT ENT ED: Denies rhinorrhea or sore throat Cardiovascular Cardiovascular: Reports chest pain; Denies palpitations Respiratory/Chest Respiratory/Chest: Denies cough or dyspnea Gastrointestinal Gastrointestinal: Reports abdominal pain, nausea and vomiting; Denies diarrhea, hematemesis, hematochezia or melena Genitourinary Genitourinary ED: Denies dysuria or hematuria Musculoskeletal Musculoskeletal: Denies back pain or neck pain Integumentary Denies abscess or rash Neurologic Neurologic: Denies headache(s), paresthesias or weakness Psychiatric Psychiatric: Reports anxiety; Denies suicidal thoughts EXAM Physical Exam Const Vital Signs: 01/16/23 07:31 01/16/23 07:34 01/16/23 10:30 Temperature 98.1 F Temperature Source Temporal Pulse Rate 85 Respiratory Rate 16 Respiratory Effort Normal Respiratory Pattern Normal Blood Pressure 157/88 H 144/83 H Blood Pressure Mean 111 101 Pulse Ox 95 97 Oxygen Delivery Method Room Air 01/16/23 11:45 Temperature Temperature Source Pulse Rate Respiratory Rate Respiratory Effort Respiratory Pattern Blood Pressure 141/82 H Blood Pressure Mean 99 Pulse Ox Oxygen Delivery Method Positive well nourished and well developed General Appearance ED: well developed and NAD HEENT Reports moist mucous membranes normocephalic and atraumatic Eyes PERRL and EOMs intact bilaterally Neck full ROM and supple Chest Wall inspection of chest normal and palpation of chest normal Resp normal respiratory effort and clear to auscultation bilaterally Cardio regular rate, regular rhythm and no murmurs GI non-distended GI Narrative: Mild tenderness right upper quadrant and epigastrium. No pulsatile mass. No guarding or rebound tenderness. No palpable organomegaly but limited somewhat by mild abdominal obesity. Auscultation: normoactive bowel sounds Palpation: soft Back/Spine no CVA tenderness General Back: other FROM Extremity normal to inspection General Extremety ED: Negative for edema, pulses abnormal or tenderness General Extremity: Negative for edema or pulses abnormal Neuro oriented x3, CN's II-XII intact bilaterally and no sensory deficits noted Sensorium / Orientation: awake and alert Motor Exam: strength 5/5 throughout Psych Mood & Affect: anxious and tearful Skin no rashes or lesions noted and no wounds MDM MDM MDM Narrative Medical decision making narrative: I reviewed prior records on this patient. It seems the last admission a couple weeks ago, she had a cardiology consult and they did not think that her discomfort was cardiac, elevated troponin more likely due to her cardiomyopathy, possibly acute on chronic congestive heart failure, she has an EF of 20%, and she had an echocardiogram showing an LV thrombus for which they added rivaroxaban to her aspirin and clopidogrel. She does have peripheral vascular disease as well which is apparently why she is on DAPT. She had a heart catheterization last year that showed stable coronary disease and the worst lesion was 50% and a smooth calcified distal LAD. In addition to all of this, the discharge summary noted that the patient had a prior EGD showing grade 3 distal esophagitis, and the patient is noncompliant with her medications. She admits this today, admitting also that she was confused about what medications to take and what not to take, so she was erring on the side of caution and not taking the majority of her medications at times. She does admit that she has Carafate liquid at home and does not take it correctly. I suspect the distal esophagitis is what is causing her immediate pain with swallowing any food or liquids. Furthermore, she had a CT followed by a gallbladder ultrasound 2 days ago during an ER visit showing that she does not have any signs of gallstones or acute gallbladder disease, although the CT showed suspicion of it. The gallbladder is the better test. Obviously this does not rule out the possibility of chronic cholecystitis for which she would need a HIDA or an MRCP. I explained this to the patient and her daughter and they understand it better now. The daughter states that she is looking for skilled nursing placement. She started this process with the psychiatric social worker supervisor and staff at [facility] [place] where she is an employee, and that is in process. Since the patient came here to the ER today she is asking to speak with social work to see if this can be expedited. She does understand that the patient will have to qualify, she was being scheduled for assessments at home and those have not occurred yet. The patient is asking for Ativan, that was given to her in addition to morphine and Zofran while I repeated her labs. The labs are unremarkable except for some mild prerenal azotemia. Social work is going to see the patient. Social work agrees that the patient is not likely qualify for fdc, and pre-CERT would be necessary anyway, but we are able to get her to assisted living and we determined a facility that excepted her, so the plan is to discharge her to their. She does not need any new prescriptions at this time. History & Record Review Additional record(s) reviewed:: Prior inpatient record, Prior outpatient record, Prior ED visit and Prior labs Lab Data Attestation: I reviewed the patient's lab results. Labs: Laboratory Results - last 24 hr 01/16/23 01/16/23 07:20 07:20 WBC 8.5 RBC 4.70 Hgb 15.0 Hct 46.3 MCV 98.5 MCH 31.9 MCHC 32.4 RDW Std Deviation 47.9 H RDW Coeff of Sariah 13.3 Plt Count 380 MPV 9.7 Immature Gran % (Auto) 0.600 Neut % (Auto) 57.9 Lymph % (Auto) 29.3 Routt % (Auto) 8.2 Eos % (Auto) 3.3 Baso % (Auto) 0.7 Absolute Neuts (auto) 4.9 Absolute Lymphs (auto) 2.49 Nucleated RBC % 0 Sodium 143 Potassium 3.7 Chloride 107 Carbon Dioxide 30.0 Anion Gap 6 BUN 24 H Creatinine 1.12 H Estim Creat Clear Calc 44.46 Est GFR (MDRD) Af Amer 63 Est GFR (MDRD) Non-Af 52 L BUN/Creatinine Ratio 21.4 H Glucose 106 Calcium 10.0 Total Bilirubin 0.50 AST 14 L ALT 17 Alkaline Phosphatase 208 H Troponin I High Sens 47 Total Protein 8.1 Albumin 3.7 Globulin 4.4 H Albumin/Globulin Ratio 0.8 L Lipase 40 Rhythm Strip Rhythm Strip: Sinus Rhythm Rate: 85 Ectopy: None Discharge Plan Triage Chief Complaint: Chest Pain ED Provider: Linus Byers Dx/Rx/DC Orders Clinical Impression: Chest pain, non-cardiac, Upper abdominal pain, Anxiety, History of medication noncompliance Instructions: Esophagitis Prescriptions: Continued lorazepam 1 mg tablet 1 mg PO BID PRN PRN (Reason: Anxiety) Label Comments: take 1 tablet by mouth twice a day if needed gabapentin 300 MG capsule 300 mg PO TID Qty: 90 0RF duloxetine [Cymbalta] 30 mg capsule,delayed release(DR/EC) 30 mg PO DAILY Qty: 30 0RF Spiriva Respimat 2.5 mcg/actuation mist 2 puff inhalation DAILY Qty: 4 0RF atorvastatin [Lipitor] 40 mg tablet 40 mg PO QHS 30 Days Qty: 30 0RF carvedilol 6.25 mg tablet 6.25 mg PO BID 30 Days Qty: 60 0RF amiodarone 200 mg tablet 200 mg PO DAILY 30 Days Qty: 30 0RF sucralfate [Carafate] 100 mg/mL suspension 10 ml PO Q6H 30 Days Qty: 1000 0RF Rx Instructions: x 2 weeks clopidogrel [Plavix] 75 mg tablet 75 mg PO DAILY 30 Days Qty: 30 0RF pantoprazole [Protonix] 40 mg tablet,delayed release (DR/EC) 40 mg PO BID 30 Days Qty: 60 0RF furosemide 20 mg tablet 20 mg PO BIDLX 30 Days Qty: 60 0RF lisinopril 2.5 mg tablet 2.5 mg PO DAILY 30 Days Qty: 30 0RF rivaroxaban 20 mg tablet See Rx Instructions .ROUTE .COMPLEX 30 Days Qty: 30 0RF Dose Instruction: TAKE 1 TABLET BY MOUTH DAILY WITH EVENING MEAL Rx Instructions: TAKE 1 TABLET BY MOUTH DAILY WITH EVENING MEAL ondansetron 4 mg tablet,disintegrating 4 mg PO Q8H PRN PRN (Reason: Nausea) Qty: 12 0RF Discontinued doxycycline hyclate 100 mg capsule 100 mg PO BID 4 Days Qty: 9 0RF Primary Care Provider: Sandy Barbosa Referrals: Sandy Barbosa MD [Primary Care Provider] - 5-7 Days Disposition Disposition: Assisted Living
[2023-01-16] MEDS: Ondansetron 4 MG/2 ML Vial IV (08:12)
[2023-01-16] MEDS: Morphine 4 MG/ML Syringe IV (08:12)
[2023-01-16] MEDS: LORazepam 2 MG/ML Syringe 0.5 MG IV (08:13)
[2023-01-16] MEDS: 0.9% Normal Saline 1,000 ML 125 ML IV (08:15)
[2023-01-16 09:04] LABS: Absolute Lymphocyte Count 2.49 X10^3/uL (0.83-4.51); Absolute Neutrophil Count 4.9 X10^3/uL (2.0-7.7); Basophil# 0.06 X10^3/uL; Basophil% 0.7 % (0-1); Eosinophil# 0.28 X10^3/uL; Eosinophils% 3.3 % (0-5); Hematocrit 46.3 % (37-47); Lymphocyte # 2.49 X10^3/ul (0.83-4.51); Lymphocyte % 29.3 % (19-41); Mean Corp Hgb Conc 32.4 g/dL (32-36); Mean Corpuscular Hgb 31.9 pg (27.0-32.0); Mean Corpuscular Volume 98.5 fL (81-99); Mean Platelet Vol. 9.7 fl (6.2-12.0); Monocyte% 8.2 % (0-10); NRBC Flagged by Analyzer 0 % (0-5); Neutrophil # 4.91 X10^3/uL (2.7-7.7); Neutrophil % 57.9 % (47-70); Platelet Count 380 K/mm3 (150-450); RBC Distribution Width CV 13.3 % (11.6-14.6); RBC Distribution Width SD 47.9 fl (35.1-43.9); White Blood Count 8.5 K/mm3 (4.4-11.0)
[2023-01-16 09:22] LABS: ALB/GLOB Ratio 0.8 RATIO (0.9-2.4); AST(SGOT) 14 U/L (15-37); Alanine Aminotransfer ALT/SGPT 17 U/L (13-56); Albumin, Serum 3.7 g/dL (3.2-5.0); Alkaline Phosphatase 208 U/L (45-117); Anion Gap 6 (5-15); BUN 24 mg/dL (7-18); BUN/Creat Ratio 21.4 RATIO (10-20); Chloride 107 mmol/L (98-107); Creatinine, Serum 1.12 mg/dL (0.55-1.02); EST Glomerular Filtration Rate 52 mL/min (>60); Est Glom Filt Rate - Afr Amer 63 mL/min (>60); Estimated Creatinine Clearance 44.46 ml/min; Globulin 4.4 g/dL (2.2-4.2); Glucose 106 mg/dL (74-106); Lipase 40 U/L (13-75); Potassium 3.7 mmol/L (3.5-5.1); Protein, Total 8.1 g/dL (6.4-8.2); Sodium Level 143 mmol/L (136-145); Troponin-I HS 47 pg/mL (3.0-54.0)
[2023-01-16 10:30] VITALS: BP 144/83; O2SAT 97
[2023-01-16 11:45] VITALS: BP 141/82
--- NOTE | 2023-01-16 12:55 | CM.ED ---
Social Work Note Referral Source: MD Byers/ in home tutor Alyssa Referral Reason: NF in home tutor Alyssa met with AC to discuss patient's interest in fdc placement. reports patient and patient's family have been working with [facility] Social Work for placement, no medical needs to be admitted at this time. AC met with patient and patient's daughter and introduced herself and role as [facility] Armored Vehicle Officer. Patient sitting up on hospital bed and agreeable to speak with AC with her daughter, Marleny, clement. SW inquired about patient's current living situation and interest/progress towards fdc placement. Patient reports she has been living with family members but is hoping for terminal makeup operator care at a fdc. Patient's daughter reports they have been working with patient's PCP and a director social service at [facility]. Patient was referred to [facility] but hasn't had an assessment yet. Patient reports she is interested in going to the [facility] as she knows someone who has lived there and had a positive experience. SW reports she will contact the [facility] to inquire about m[facility]p bed availability and review a referral. Patient in agreement with SW contacting [facility] [place]. AC contacted [facility] and spoke with intake staff Genesis. Genesis reports there is one mcfp room available, rooms are private. Genesis requesting referral be sent via [facility] to determine if patient's insurance would allow her to be admitted from ED. AC sent referral to [facility] via [facility]. Genesis with the [facility] contacted with acceptance to their facility. Genesis reports the Pasrr will need completed and discharge orders will need to be sent via [facility]. Genesis also states patient can bring whatever items she would like to have and does not need to bring her medications as they will fill her prescriptions at their facility. AC updated care team of acceptance to [facility] for terminal makeup operator care. Discharge orders and Pasrr completed and sent to [facility] via [facility]. AC updated patient and patient's daughter regarding acceptance and explained patient does not need to bring medications as [facility] [place] will fill her prescriptions. Patient reports understanding and expressed some anxiety about the transition as well as her current health. SW validated patient's experience and provided emotional support. No other needs at this time. Plan: Patient's daughter transporting patient to [facility] [place] NEVAEH Kumar
== END 2023-01-16 13:07 | disposition home or self-care (01) ==
PROVIDERS: Emergency Provider Emergency Medicine; PCP Internal Medicine; Visit Provider Emergency Medicine
DX: R07.89 Other chest pain (principal); J44.9 Chronic obstructive pulmonary disease, unspecified; I10 Essential (primary) hypertension; I25.10 Atherosclerotic heart disease of native coronary artery without angina pectoris; I25.2 Old myocardial infarction; E78.5 Hyperlipidemia, unspecified; F41.9 Anxiety disorder, unspecified; K21.00 Gastro-esophageal reflux disease with esophagitis, without bleeding; F17.210 Nicotine dependence, cigarettes, uncomplicated; R10.11 Right upper quadrant pain; R10.13 Epigastric pain; Z91.148 Patient's other noncompliance with medication regimen for other reason; Z79.02 Long term (current) use of antithrombotics/antiplatelets; Z79.82 Long term (current) use of aspirin; Z79.899 Other long term (current) drug therapy; Z86.73 Personal history of transient ischemic attack (TIA), and cerebral infarction without residual deficits
CPT/HCPCS: 80053; 83690; 84484; 85025; 96361; 96374; 96375; 99283; J7030; J2405

== ENCOUNTER → 2023-02-16 | Outpatient (CLI) | payer MEDICARE, MEDICAID, SELFPAY ==
--- NOTE | 2023-02-17 16:03 | PFT ---
INTRODUCTION: The patient is a 67-year-old female who presents for pulmonary function studies secondary to a diagnosis of dyspnea. Respiratory therapy reported good patient effort. Bronchodilators were used during testing. INTERPRETATION: Forced expiration spirometry demonstrates no evidence of a large airways obstructive ventilatory defect. There was a significant response to aerosolized bronchodilators. Body plethysmography was performed and revealed a decreased TLC to 4.1 L, 81% of predicted, indicative of a mild restrictive ventilatory impairment. Diffusing capacity by single breath CO was within normal limits. IMPRESSION: Mild restrictive ventilatory impairment with stigmata of small airways disease and significant bronchodilator response.
== END | disposition home or self-care (01) ==
LOC: PSN 07:53
PROVIDERS: PCP Internal Medicine; Referring Provider Internal Medicine; Visit Provider Internal Medicine
DX: I25.5 Ischemic cardiomyopathy (principal); Z72.0 Tobacco use
CPT/HCPCS: 94060; 94726; 94729

== ENCOUNTER 2023-06-01 21:14 | Emergency (ER) | payer MEDICARE, MEDICAID, SELFPAY ==
[2023-06-01 21:15] VITALS: BP 152/78; PULSE 79; RESP 16; TEMP 36.4; O2SAT 96; BMI 37.3
[2023-06-01] MEDS: 0.9% Normal Saline (1000mL) 1,000 ML 999 ML IV (23:33)
[2023-06-01] MEDS: Ondansetron 4 MG/2 ML Vial IV (23:33)
[2023-06-01] MEDS: HYDROmorphone 1 MG/ML Syringe IV (23:33)
[2023-06-02 00:01] LABS: AST(SGOT) 13 U/L (15-37); Alanine Aminotransfer ALT/SGPT 17 U/L (13-56); Albumin, Serum 3.4 g/dL (3.2-5.0); Alkaline Phosphatase 129 U/L (45-117); Anion Gap 4 (5-15); BUN 16 mg/dL (7-18); BUN/Creat Ratio 16.2 RATIO (10-20); Calcium,Total 9.1 mg/dL (8.5-10.1); Chloride 106 mmol/L (98-107); Creatinine, Serum 0.99 mg/dL (0.55-1.02); EST Glomerular Filtration Rate 60 mL/min (>60); Est Glom Filt Rate - Afr Amer 72 mL/min (>60); Globulin 3.5 g/dL (2.2-4.2); Glucose 114 mg/dL (74-106); Lipase 19 U/L (13-75); Protein, Total 6.9 g/dL (6.4-8.2); Sodium Level 140 mmol/L (136-145)
[2023-06-02 00:04] LABS: Absolute Lymphocyte Count 2.63 X10^3/uL (0.83-4.51); Absolute Neutrophil Count 4.3 X10^3/uL (2.0-7.7); Basophil# 0.06 X10^3/uL; Basophil% 0.7 % (0-1); Eosinophil# 0.36 X10^3/uL; Eosinophils% 4.5 % (0-5); Hemoglobin 14.5 g/dL (12.0-15.0); Lymphocyte # 2.63 X10^3/ul (0.83-4.51); Lymphocyte % 32.8 % (19-41); Mean Corp Hgb Conc 33.7 g/dL (32-36); Mean Corpuscular Hgb 31.3 pg (27.0-32.0); Mean Corpuscular Volume 92.7 fL (81-99); Mean Platelet Vol. 8.9 fl (6.2-12.0); Monocyte# 0.62 X10^3/uL; Monocyte% 7.7 % (0-10); NRBC Flagged by Analyzer 0 % (0-5); Neutrophil # 4.26 X10^3/uL (2.7-7.7); Neutrophil % 53.3 % (47-70); Platelet Count 250 K/mm3 (150-450); RBC Distribution Width CV 12.5 % (11.6-14.6); RBC Distribution Width SD 42.6 fl (35.1-43.9); Red Blood Count 4.64 M/mm3 (4.2-5.4)
--- NOTE | 2023-06-02 00:29 | EDS_ITS ---
HPI History of Present Illness Chief Complaint: Abd Pain Informant: patient Narrative Narrative: Patient is a 67-year-old female with past medical history of hypertension hyperlipidemia anxiety and chronic pain who takes [place] secondary to this. She states that she is following with GI secondary to her recurrent abdominal discomfort and was found to have a dilated biliary duct and is currently in the process of undergoing further testing with an MRCP to assess the cause of dilation. She states she has been taking her [place] as directed but today she had increased pain despite taking this. She denies fevers chills nausea vomiting diarrhea dysuria or constipation. However because of the increased pain she presents for evaluation [facility] Medical History Anxiety and depression Atherosclerotic heart disease of [place] coronary artery without angina pectoris Bullous emphysema Calculus of left kidney COPD (chronic obstructive pulmonary disease) COPD with asthma Depression Elevated troponin Esophagitis, unspecified without bleeding Essential hypertension GERD (gastroesophageal reflux disease) History of non-ST elevation myocardial infarction (NSTEMI) (09/01/21) Hyperlipidemia Ischemic cardiomyopathy Kidney stones Myocardial infarct Obesity (BMI 30.0-34.9) Old anterior wall myocardial infarction Opiate dependence EVELYN (obstructive sleep apnea) Osteoporosis Other chronic pain Personal history of transient ischemic attack (TIA), and cerebral infarction without residual deficits Smoker Sustained SVT TIA (transient ischemic attack) Tobacco abuse Unspecified combined 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 Home Medications lorazepam 1 mg tablet 1 mg PO BID PRN PRN Anxiety 06/15/21 [History Last Taken Unknown] gabapentin 300 mg capsule 300 mg PO TID nerve pain #90 caps 01/01/22 [Rx Last Taken 08/11/22] amiodarone 200 mg tablet 200 mg PO DAILY 30 days #30 tabs 01/04/23 [Rx Last Taken Unknown] atorvastatin 40 mg tablet (Lipitor) 40 mg PO QHS 30 days #30 tabs 01/04/23 [Rx Last Taken Unknown] carvedilol 6.25 mg tablet 6.25 mg PO BID 30 days #60 tabs 01/04/23 [Rx Last Taken Unknown] clopidogrel 75 mg tablet (Plavix) 75 mg PO DAILY 30 days #30 tabs 01/04/23 [Rx Last Taken Unknown] duloxetine 30 mg capsule,delayed release (Cymbalta) 30 mg PO DAILY #30 caps 01/04/23 [Rx Last Taken Unknown] furosemide 20 mg tablet 20 mg PO BIDLX 30 days #60 tabs 01/04/23 [Rx Last Taken Unknown] lisinopril 2.5 mg tablet 2.5 mg PO DAILY 30 days #30 tabs 01/04/23 [Rx Last Taken Unknown] rivaroxaban 20 mg tablet See Rx Instructions .Route .COMPLEX 30 days #30 tabs 01/04/23 [Rx Last Taken Unknown] ondansetron 4 mg disintegrating tablet 4 mg PO Q8H PRN PRN Nausea #12 tabs 01/13/23 [Rx Last Taken Unknown] albuterol sulfate 90 mcg/actuation aerosol inhaler 2 puff inhalation Q6H PRN shortness of breath or wheezing #8.5 grams 02/17/23 [Rx Last Taken Unknown] budesonide-formoterol HFA 160 mcg-4.5 mcg/actuation aerosol inhaler (Symbicort) 1 puff inhalation BID #10.2 grams 02/17/23 [Rx Last Taken Unknown] buprenorphine 5 mcg/hour weekly transdermal patch 1 patch transdermal QWEEK 02/17/23 [History Last Taken Unknown] inhalational spacing device (Aerochamber MV spacer) #1 ea 02/17/23 [Rx Last Taken Unknown] omeprazole 40 mg capsule,delayed release 40 mg PO DAILY 02/17/23 [History Last Taken Unknown] tiotropium bromide 2.5 mcg/actuation mist for inhalation (Spiriva Respimat) 2 puff inhalation DAILY #4 grams 02/17/23 [Rx Last Taken Unknown] lidocaine HCl 2 % mucosal solution (Lidocaine Viscous) 10 ml mucous membrane BID PRN pain #100 mL 05/28/23 [Rx Last Taken Unknown] Allergy/AdvReac Type Severity Reaction Status Date / Time No Known Allergies Allergy Verified 03/04/23 11:05 Family History Mother Hypertension CAD (coronary artery disease) CVA (cerebral vascular accident) Myocardial infarction Grandmother Myocardial infarction Surgical History History of hysterectomy History of left heart catheterization (01/20/22) History of total hysterectomy Hx of appendectomy Social History household members: none Smoking Status: Current some day smoker tobacco type: cigarettes alcohol intake: never substance use type: does not use ROS ROS ED Constitutional Constitutional ED: Denies chills or fever(s) ENT ENT ED: Denies sore throat Cardiovascular Cardiovascular: Denies chest pain Respiratory/Chest Respiratory/Chest: Denies cough or dyspnea Gastrointestinal Gastrointestinal: Reports abdominal pain; Denies diarrhea, nausea or vomiting Genitourinary Genitourinary ED: Denies dysuria Musculoskeletal Musculoskeletal: Denies myalgias Integumentary Denies rash Neurologic Neurologic: Denies headache(s) Hematologic/Lymphatic Hematologic/Lymphatic: Denies easy bleeding or easy bruising EXAM Physical Exam Const Vital Signs: 06/01/23 21:15 Temperature 97.5 F L Temperature Source Temporal Pulse Rate 79 Respiratory Rate 16 Blood Pressure 152/78 H Blood Pressure Mean 102 Pulse Ox 96 Oxygen Delivery Method Room Air Positive well nourished and well developed General Appearance ED: well developed HEENT Reports dry mucous membranes HEENT Narrative: No signs of infection noted in the posterior pharynx Mouth ED: Yes dry mucous membranes Mouth: dry mucous membranes Eyes PERRL and EOMs intact bilaterally General Eye ED: Negative for scleral icterus Neck supple Resp normal respiratory effort and clear to auscultation bilaterally Cardio regular rate and regular rhythm Rate: other Other Details: Radial and carotid pulses are equal and symmetric GI non-distended GI Narrative: Abdomen is soft and nondistended with normal active bowel sounds. Patient has mild diffuse pain with palpation without voluntary guarding or rigidity. No pulsatile mass or fluid wave Auscultation: normoactive bowel sounds Palpation: soft Extremity normal to inspection Neuro oriented x3, CN's II-XII intact bilaterally and no sensory deficits noted Sensorium / Orientation: alert Motor Exam: strength 5/5 throughout Psych Psych Narrative: Patient has a nervous/anxious affect Skin no rashes or lesions noted General Skin Exam: Negative for jaundice MDM MDM MDM Narrative Medical decision making narrative: Patient presented to the ER mildly hypertensive but otherwise afebrile with stable vitals. She has had recurrent imaging studies and is already followed up with GI regarding her recurrent abdominal pain. Differential diagnosis is for chronic abdominal pain versus acute pancreatitis versus biliary colic versus gastroenteritis versus colitis. As patient has had multiple imaging studies done and is following GI and has an MRCP scheduled did not feel the need for repeat imaging. Patient blood work was obtained and shows no clinically significant findings and the abnormalities noted are at her baseline when compared to previous lab. The patient was hydrated and given Dilaudid and had resolution of her pain and her abdomen remained soft and nonsurgical and therefore there is no need for further work-up and she can be discharged home and continue to follow-up on an outpatient basis with GI. History & Record Review Discussion w/independent historian: Patient Lab Data Attestation: I reviewed the patient's lab results. Labs: Laboratory Results - last 24 hr 06/01/23 23:39 WBC 8.0 RBC 4.64 Hgb 14.5 Hct 43.0 MCV 92.7 MCH 31.3 MCHC 33.7 RDW Std Deviation 42.6 RDW Coeff of Sariah 12.5 Plt Count 250 MPV 8.9 Immature Gran % (Auto) 1.000 H Neut % (Auto) 53.3 Lymph % (Auto) 32.8 [place] % (Auto) 7.7 Eos % (Auto) 4.5 Baso % (Auto) 0.7 Absolute Neuts (auto) 4.3 Absolute Lymphs (auto) 2.63 Nucleated RBC % 0 Sodium 140 Potassium 4.0 Chloride 106 Carbon Dioxide 30.0 Anion Gap 4 L BUN 16 Creatinine 0.99 Estim Creat Clear Calc 50.30 Est GFR (MDRD) Af Amer 72 Est GFR (MDRD) Non-Af 60 BUN/Creatinine Ratio 16.2 Glucose 114 H Calcium 9.1 Total Bilirubin 0.40 Direct Bilirubin 0.10 AST 13 L ALT 17 Alkaline Phosphatase 129 H Total Protein 6.9 Albumin 3.4 Globulin 3.5 Lipase 19 Discharge Plan Triage Chief Complaint: Abd Pain ED Provider: Ross Lou Dx/Rx/DC Orders Clinical Impression: Abdominal pain, Dysphagia, Essential hypertension Instructions: Abdominal Pain Prescriptions: No Action lidocaine HCl [Lidocaine Viscous] 2 % solution 10 ml mucous membrane BID PRN (Reason: pain) Qty: 100 3RF omeprazole 40 mg capsule,delayed release(DR/EC) 40 mg PO DAILY buprenorphine 5 mcg/hour patch weekly 1 patch transdermal QWEEK budesonide-formoterol [Symbicort] 160-4.5 mcg/actuation HFA aerosol inhaler 1 puff inhalation BID Qty: 10.2 11RF Spiriva Respimat 2.5 mcg/actuation mist 2 puff inhalation DAILY Qty: 4 11RF albuterol sulfate 90 mcg/actuation HFA aerosol inhaler 2 puff inhalation Q6H MDD 10 puffs PRN (Reason: shortness of breath or wheezing) Qty: 8.5 6RF Rx Instructions: This inhaler must be used with a spacer device. (DME) Aerochamber MV Spacer See Rx Instructions .ROUTE .MEDSUPPLY Qty: 1 0RF Rx Instructions: As directed lorazepam 1 mg tablet 1 mg PO BID PRN PRN (Reason: Anxiety) Patient Comments: take 1 tablet by mouth twice a day if needed gabapentin 300 MG capsule 300 mg PO TID Qty: 90 0RF duloxetine [Cymbalta] 30 mg capsule,delayed release(DR/EC) 30 mg PO DAILY Qty: 30 0RF atorvastatin [Lipitor] 40 mg tablet 40 mg PO QHS 30 Days Qty: 30 0RF carvedilol 6.25 mg tablet 6.25 mg PO BID 30 Days Qty: 60 0RF amiodarone 200 mg tablet 200 mg PO DAILY 30 Days Qty: 30 0RF clopidogrel [Plavix] 75 mg tablet 75 mg PO DAILY 30 Days Qty: 30 0RF furosemide 20 mg tablet 20 mg PO BIDLX 30 Days Qty: 60 0RF lisinopril 2.5 mg tablet 2.5 mg PO DAILY 30 Days Qty: 30 0RF rivaroxaban 20 mg tablet See Rx Instructions .ROUTE .COMPLEX 30 Days Qty: 30 0RF Dose Instruction: TAKE 1 TABLET BY MOUTH DAILY WITH EVENING MEAL Rx Instructions: TAKE 1 TABLET BY MOUTH DAILY WITH EVENING MEAL ondansetron 4 mg tablet,disintegrating 4 mg PO Q8H PRN PRN (Reason: Nausea) Qty: 12 0RF Primary Care Provider: Sandy Barbosa Referrals: Sandy Barbosa MD [Primary Care Provider] - Activity Restrictions/Additional Instructions: Your work-up today showed that all your values for your liver and kidney are at their baseline. You need to continue to follow-up with GI/DrIsabela Friend to get your MRCP to further assess the cause of your recurrent abdominal pain. Continue all of your prescribed medications at home as directed and return to the ER should you have any further concerns Disposition Disposition: Home, Self Care Discharge Date/Time: 06/02/23 01:02
== END 2023-06-02 01:02 | disposition home or self-care (01) ==
PROVIDERS: Emergency Provider Emergency Medicine; PCP Internal Medicine; Visit Provider Emergency Medicine
DX: R10.9 Unspecified abdominal pain (principal); I11.0 Hypertensive heart disease with heart failure; I50.42 Chronic combined systolic (congestive) and diastolic (congestive) heart failure; R13.10 Dysphagia, unspecified; I25.10 Atherosclerotic heart disease of native coronary artery without angina pectoris; I25.2 Old myocardial infarction; G47.33 Obstructive sleep apnea (adult) (pediatric); Z86.73 Personal history of transient ischemic attack (TIA), and cerebral infarction without residual deficits; F17.210 Nicotine dependence, cigarettes, uncomplicated
CPT/HCPCS: 80048; 80076; 83690; 85025; 96361; 96374; 96375; 99285; J7030; A4216; J2405

== ENCOUNTER 2023-06-23 16:00 | Emergency (ER) | payer MEDICARE, MEDICAID, SELFPAY ==
[2023-06-23 16:01] VITALS: BP 151/102; PULSE 95; RESP 18; TEMP 36.6; O2SAT 98; BMI 35.4
--- NOTE | 2023-06-23 16:04 | EKG12_ITS ---
Test Reason : CP Blood Pressure : / mmHG Vent. Rate : 086 BPM Atrial Rate : 086 BPM P-R Int : 132 ms QRS Dur : 096 ms QT Int : 330 ms P-R-T Axes : 059 011 100 degrees QTc Int : 394 ms Normal sinus rhythm Cannot rule out Anteroseptal infarct (cited on or before 26-JAN-2022) Abnormal ECG Confirmed by GEO ORNELAS MD ([id number]), news videotape editor SANTIAGO SMALL ([id number]) on 06/25/2023 2:04:42 PM Referred By: ERIC Confirmed By:GEO ORNELAS MD
--- NOTE | 2023-06-23 17:01 | RAD_ITS ---
INDICATION: chest pain EXAMINATION/TECHNIQUE: X-RAY - XR Chest 1 View COMPARISON: 01/12/2023. FINDINGS: The lungs are clear. Tortuous and calcified thoracic aorta. The heart is mild to moderately enlarged. No pleural effusion or pneumothorax. Degenerative changes of the thoracic spine. RAD/Chest 1 View (Portable) IMPRESSION: No acute radiographic abnormalities. Electronically Signed: Karthik Duenas MD at 17:49 EDT ,
[2023-06-23 17:02] LABS: Absolute Lymphocyte Count 2.22 X10^3/uL (0.83-4.51); Basophil# 0.06 X10^3/uL; Basophil% 0.7 % (0-1); Eosinophil# 0.36 X10^3/uL; Eosinophils% 4.4 % (0-5); Hematocrit 43.5 % (37-47); Lymphocyte # 2.22 X10^3/ul (0.83-4.51); Lymphocyte % 26.9 % (19-41); Mean Corp Hgb Conc 32.2 g/dL (32-36); Mean Corpuscular Hgb 30.9 pg (27.0-32.0); Mean Platelet Vol. 9.1 fl (6.2-12.0); Monocyte# 0.57 X10^3/uL; Monocyte% 6.9 % (0-10); NRBC Flagged by Analyzer 0 % (0-5); Neutrophil % 60.5 % (47-70); Platelet Count 222 K/mm3 (150-450); RBC Distribution Width CV 13.1 % (11.6-14.6); RBC Distribution Width SD 45.9 fl (35.1-43.9); Red Blood Count 4.53 M/mm3 (4.2-5.4); White Blood Count 8.3 K/mm3 (4.4-11.0)
--- NOTE | 2023-06-23 17:12 | EX.ED.DYSGE1 ---
HPI History of Present Illness Chief Complaint: Chest Pain Informant: patient Onset/Context/Timing Onset: Today Narrative Narrative: Patient presents secondary to left upper chest pain that started about 3 hours ago. She was sitting in the waiting room at her pain management office when she started feeling ill. She complains of pain to the left upper chest. She does report some cough and wheezing. Patient states that she completed her appointment but the intermediate never came to pick her up. A friend picked her up and she states she had a near syncopal episode while in the car. She has been having upper abdominal pain and is scheduled to undergo some procedure here at the hospital tomorrow. She states that her Xarelto was currently on hold because of this. [facility] Medical History Anxiety and depression Arthritis Atherosclerotic heart disease of [place] coronary artery without angina pectoris Back pain Bullous emphysema Calculus of left kidney Cardiology follow-up encounter Chest pain Chronic cough COPD (chronic obstructive pulmonary disease) COPD with asthma Depression Difficulty chewing DVT (deep venous thrombosis) Easy bruising Elevated troponin Esophagitis, unspecified without bleeding Essential hypertension Excessive bleeding Gastric reflux GERD (gastroesophageal reflux disease) High cholesterol History of CHF (congestive heart failure) History of echocardiogram History of edema History of irregular heartbeat History of non-ST elevation myocardial infarction (NSTEMI) (09/01/21) History of pain when walking History of renal disease History of stress test History of ulceration Hoarseness Hyperlipidemia Injury of back Ischemic cardiomyopathy Kidney stones Leg cramps Myocardial infarct Obesity (BMI 30.0-34.9) Old anterior wall myocardial infarction Opiate dependence EVELYN (obstructive sleep apnea) Osteoporosis Other chronic pain Personal history of transient ischemic attack (TIA), and cerebral infarction without residual deficits Post-menopausal Shortness of breath on exertion Smoker Sustained SVT TIA (transient ischemic attack) Tobacco abuse Unspecified combined 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 Wears glasses Home Medications gabapentin 300 mg capsule 300 mg PO TID nerve pain #90 caps 01/01/22 [Rx Last Taken 08/11/22] amiodarone 200 mg tablet 200 mg PO DAILY 30 days #30 tabs 01/04/23 [Rx Last Taken Unknown] atorvastatin 40 mg tablet (Lipitor) 40 mg PO QHS 30 days #30 tabs 01/04/23 [Rx Last Taken Unknown] carvedilol 6.25 mg tablet 6.25 mg PO BID 30 days #60 tabs 01/04/23 [Rx Last Taken Unknown] clopidogrel 75 mg tablet (Plavix) 75 mg PO DAILY 30 days #30 tabs 01/04/23 [Rx Last Taken Unknown] duloxetine 30 mg capsule,delayed release (Cymbalta) 30 mg PO DAILY #30 caps 01/04/23 [Rx Last Taken Unknown] furosemide 20 mg tablet 20 mg PO BIDLX 30 days #60 tabs 01/04/23 [Rx Last Taken Unknown] lisinopril 2.5 mg tablet 2.5 mg PO DAILY 30 days #30 tabs 01/04/23 [Rx Last Taken Unknown] rivaroxaban 20 mg tablet See Rx Instructions .Route .COMPLEX 30 days #30 tabs 01/04/23 [Rx Last Taken Unknown] ondansetron 4 mg disintegrating tablet 4 mg PO Q8H PRN PRN Nausea #12 tabs 01/13/23 [Rx Last Taken Unknown] albuterol sulfate 90 mcg/actuation aerosol inhaler 2 puff inhalation Q6H PRN shortness of breath or wheezing #8.5 grams 02/17/23 [Rx Last Taken Unknown] budesonide-formoterol HFA 160 mcg-4.5 mcg/actuation aerosol inhaler (Symbicort) 1 puff inhalation BID #10.2 grams 02/17/23 [Rx Last Taken Unknown] buprenorphine 5 mcg/hour weekly transdermal patch 1 patch transdermal QWEEK 02/17/23 [History Last Taken Unknown] inhalational spacing device (Aerochamber MV spacer) #1 ea 02/17/23 [Rx Last Taken Unknown] tiotropium bromide 2.5 mcg/actuation mist for inhalation (Spiriva Respimat) 2 puff inhalation DAILY #4 grams 02/17/23 [Rx Last Taken Unknown] lidocaine HCl 2 % mucosal solution (Lidocaine Viscous) 10 ml mucous membrane BID PRN pain #100 mL 05/28/23 [Rx Last Taken Unknown] hydrocodone-acetaminophen 5-325mg 5mg-325mg 1 tab PO TID PRN pain 06/17/23 [History Last Taken Unknown] lansoprazole 30 mg capsule,delayed release 30 mg PO DAILY 06/17/23 [History Last Taken Unknown] Allergy/AdvReac Type Severity Reaction Status Date / Time No Known Allergies Allergy Verified 06/23/23 16:03 Family History Mother Hypertension CAD (coronary artery disease) CVA (cerebral vascular accident) Myocardial infarction Grandmother Myocardial infarction Surgical History History of cardiac catheterization History of hysterectomy History of left heart catheterization (01/20/22) History of total hysterectomy Hx of appendectomy Social History household members: none Smoking Status: Current some day smoker tobacco type: cigarettes alcohol intake: never substance use type: does not use ROS ROS ED Constitutional Constitutional ED: Denies chills or fever(s) Eyes Eyes: Denies discharge from eye(s) ENT ENT ED: Denies discharge from eye(s), rhinorrhea or sore throat Cardiovascular Cardiovascular: Reports chest pain; Denies palpitations or racing heartbeat Respiratory/Chest Respiratory/Chest: Reports cough and dyspnea Gastrointestinal Gastrointestinal: Reports abdominal pain and nausea; Denies diarrhea or vomiting Genitourinary Genitourinary ED: Denies dysuria Musculoskeletal Musculoskeletal: Reports back pain; Denies extremity pain Integumentary Denies Abrasions or rash Neurologic Neurologic: Reports weakness; Denies headache(s) Psychiatric Psychiatric: Denies anxiety or depression Allergic/Immunologic Allergic/Immunologic ED: Denies lip swelling or urticaria EXAM Physical Exam Const Vital Signs: 06/23/23 16:01 06/23/23 16:45 06/23/23 18:04 Temperature 97.8 F Temperature Source Temporal Pulse Rate 95 Respiratory Rate 18 Respiratory Effort Normal Non-Labored Blood Pressure 151/102 H Blood Pressure Mean 118 Pulse Ox 98 98 Oxygen Delivery Method Room Air Room Air 06/23/23 18:09 Temperature Temperature Source Pulse Rate 71 Respiratory Rate 14 Respiratory Effort Blood Pressure 134/69 H Blood Pressure Mean 90 Pulse Ox 98 Oxygen Delivery Method Room Air Positive well nourished and well developed General Appearance ED: well developed HEENT Reports normocephalic and head/scalp atraumatic Eyes PERRL and EOMs intact bilaterally Neck supple Chest Wall inspection of chest normal and palpation of chest normal Resp normal respiratory effort and clear to auscultation bilaterally Cardio regular rate and regular rhythm GI GI Narrative: Abdomen soft with mild epigastric tenderness. No guarding or rebound. Palpation: soft Extremity normal to inspection Neuro oriented x3 and no sensory deficits noted Sensorium / Orientation: alert Motor Exam: strength 5/5 throughout Psych mental status grossly normal Skin no rashes or lesions noted MDM MDM MDM Narrative Medical decision making narrative: IV line established. Patient placed on electric power superintendent. EKG obtained to evaluate for cardiac arrhythmia/ischemia. Chest x-ray obtained to evaluate for acute lung pathology, cardiac size, or mediastinal abnormality. Labwork obtained to evaluate for leukocytosis, anemia, and electrolyte derangement. History & Record Review Discussion w/independent historian: Patient Additional record(s) reviewed:: Prior ED visit and Prior labs Lab Data Attestation: I reviewed the patient's lab results. Labs: Laboratory Results - last 24 hr 06/23/23 06/23/23 06/23/23 16:40 16:52 18:03 WBC 8.3 RBC 4.53 Hgb 14.0 Hct 43.5 MCV 96.0 MCH 30.9 MCHC 32.2 RDW Std Deviation 45.9 H RDW Coeff of Sariah 13.1 Plt Count 222 MPV 9.1 Immature Gran % (Auto) 0.600 Neut % (Auto) 60.5 Lymph % (Auto) 26.9 [place] % (Auto) 6.9 Eos % (Auto) 4.4 Baso % (Auto) 0.7 Absolute Neuts (auto) 5.0 Absolute Lymphs (auto) 2.22 Nucleated RBC % 0 Sodium 142 Potassium 4.2 Chloride 110 H Carbon Dioxide 28.0 Anion Gap 4 L BUN 25 H Creatinine 1.05 H Estim Creat Clear Calc 47.42 Est GFR (MDRD) Af Amer 67 Est GFR (MDRD) Non-Af 56 L BUN/Creatinine Ratio 23.8 H Glucose 109 H Calcium 9.2 Total Bilirubin 0.20 Direct Bilirubin 0.09 AST 23 ALT 27 Alkaline Phosphatase 134 H Troponin I High Sens 29 Total Protein 7.1 Albumin 3.3 Globulin 3.8 Lipase 17 Urine Color Yellow Urine Clarity Clear Urine pH 6.0 Ur Specific [place] 1.020 Urine Protein 15 H Urine Glucose (UA) Normal Urine Ketones Negative Urine Occult Blood 10 H Urine Nitrite Negative Urine Bilirubin Negative Urine Urobilinogen Normal Ur Leukocyte Esterase 25 H Urine RBC 0 SEEN Urine WBC 0 SEEN Ur Squamous Epith Cells 0-5 SEEN Urine Bacteria 0 SEEN Urine Mucus 0 SEEN 06/23/23 18:48 WBC RBC Hgb Hct MCV MCH MCHC RDW Std Deviation RDW Coeff of Sariah Plt Count MPV Immature Gran % (Auto) Neut % (Auto) Lymph % (Auto) [place] % (Auto) Eos % (Auto) Baso % (Auto) Absolute Neuts (auto) Absolute Lymphs (auto) Nucleated RBC % Sodium Potassium Chloride Carbon Dioxide Anion Gap BUN Creatinine Estim Creat Clear Calc Est GFR (MDRD) Af Amer Est GFR (MDRD) Non-Af BUN/Creatinine Ratio Glucose Calcium Total Bilirubin Direct Bilirubin AST ALT Alkaline Phosphatase Troponin I High Sens 28 Total Protein Albumin Globulin Lipase Urine Color Urine Clarity Urine pH Ur Specific [place] Urine Protein Urine Glucose (UA) Urine Ketones Urine Occult Blood Urine Nitrite Urine Bilirubin Urine Urobilinogen Ur Leukocyte Esterase Urine RBC Urine WBC Ur Squamous Epith Cells Urine Bacteria Urine Mucus Radiography Chest X-Ray - ED: 1 View, Read by ED Physician, Chronic Changes and No Infiltrates Diagnostic Testing: Clinical Impression(s) from Imaging Studies Chest X-Ray 06/23/23 17:01 IMPRESSION: No acute radiographic abnormalities. Electronically Signed: Karthik Duenas MD at 17:49 EDT , EKG Initial EKG: Attestation: I personally reviewed and interpreted this EKG as follows: Interpretation: Sinus Rhythm (Sinus at 86 with no acute ischemia. Nonspecific lateral T wave flattening.) Treatment and Re-Evaluation :: On repeat evaluation patient resting comfortably. CBC was normal white count of 8.3 with a hemoglobin of 14. Chemistry studies are unremarkable with normal renal function. LFTs reveal alk phos of 134, otherwise values normal. Initial troponin is 9 with a 2-hour repeat troponin of 28. Urinalysis reveals no infection. Portable chest x-ray per my interpretation was chronic changes with no focal infiltrate. Radiology interpretation is reviewed and agrees. EKG reveals no acute ischemia. At this time I do not feel patient requires admission for further work-up. She will be discharged to follow-up for her GI testing tomorrow as scheduled. Discharge Plan Triage Chief Complaint: Chest Pain ED Provider: Lo Chu Dx/Rx/DC Orders Clinical Impression: Near syncope, Chest pain Instructions: ED Chest Pain, Uncertain Cause, ED Near-Fainting, Uncertain Cause Prescriptions: No Action lidocaine HCl [Lidocaine Viscous] 2 % solution 10 ml mucous membrane BID PRN (Reason: pain) Qty: 100 3RF buprenorphine 5 mcg/hour patch weekly 1 patch transdermal QWEEK budesonide-formoterol [Symbicort] 160-4.5 mcg/actuation HFA aerosol inhaler 1 puff inhalation BID Qty: 10.2 11RF Spiriva Respimat 2.5 mcg/actuation mist 2 puff inhalation DAILY Qty: 4 11RF albuterol sulfate 90 mcg/actuation HFA aerosol inhaler 2 puff inhalation Q6H MDD 10 puffs PRN (Reason: shortness of breath or wheezing) Qty: 8.5 6RF Rx Instructions: This inhaler must be used with a spacer device. (DME) Aerochamber MV Spacer See Rx Instructions .ROUTE .MEDSUPPLY Qty: 1 0RF Rx Instructions: As directed gabapentin 300 MG capsule 300 mg PO TID Qty: 90 0RF duloxetine [Cymbalta] 30 mg capsule,delayed release(DR/EC) 30 mg PO DAILY Qty: 30 0RF atorvastatin [Lipitor] 40 mg tablet 40 mg PO QHS 30 Days Qty: 30 0RF carvedilol 6.25 mg tablet 6.25 mg PO BID 30 Days Qty: 60 0RF amiodarone 200 mg tablet 200 mg PO DAILY 30 Days Qty: 30 0RF clopidogrel [Plavix] 75 mg tablet 75 mg PO DAILY 30 Days Qty: 30 0RF furosemide 20 mg tablet 20 mg PO BIDLX 30 Days Qty: 60 0RF lisinopril 2.5 mg tablet 2.5 mg PO DAILY 30 Days Qty: 30 0RF rivaroxaban 20 mg tablet See Rx Instructions .ROUTE .COMPLEX 30 Days Qty: 30 0RF Dose Instruction: TAKE 1 TABLET BY MOUTH DAILY WITH EVENING MEAL Rx Instructions: TAKE 1 TABLET BY MOUTH DAILY WITH EVENING MEAL ondansetron 4 mg tablet,disintegrating 4 mg PO Q8H PRN PRN (Reason: Nausea) Qty: 12 0RF lansoprazole 30 mg capsule,delayed release(DR/EC) 30 mg PO DAILY hydrocodone-acetaminophen 5-325 mg tablet 1 tab PO TID PRN (Reason: pain) Primary Care Provider: Yee Mccray NP Referrals: Yee Mccray NP, DIGITAL ART DIRECTOR-C [Primary Care Provider] - 1 Week Disposition Disposition: Home, Self Care
[2023-06-23 17:31] LABS: Anion Gap 4 (5-15); BUN 25 mg/dL (7-18); BUN/Creat Ratio 23.8 RATIO (10-20); Calcium,Total 9.2 mg/dL (8.5-10.1); Chloride 110 mmol/L (98-107); Creatinine, Serum 1.05 mg/dL (0.55-1.02); EST Glomerular Filtration Rate 56 mL/min (>60); Est Glom Filt Rate - Afr Amer 67 mL/min (>60); Estimated Creatinine Clearance 47.42 ml/min; Glucose 109 mg/dL (74-106); Potassium 4.2 mmol/L (3.5-5.1); Sodium Level 142 mmol/L (136-145); Troponin-I HS (w/2H Reflex) 29 pg/mL (3.0-54.0)
[2023-06-23] MEDS: Ondansetron 4 MG/2 ML Vial IV (17:40)
[2023-06-23] MEDS: 0.9% Normal Saline (1000mL) 1,000 ML 150 ML IV (17:40)
[2023-06-23 17:51] LABS: AST(SGOT) 23 U/L (15-37); Alanine Aminotransfer ALT/SGPT 27 U/L (13-56); Albumin, Serum 3.3 g/dL (3.2-5.0); Alkaline Phosphatase 134 U/L (45-117); Bilirubin, Direct 0.09 mg/dL (0.00-0.30); Globulin 3.8 g/dL (2.2-4.2); Lipase 17 U/L (13-75); Protein, Total 7.1 g/dL (6.4-8.2)
[2023-06-23 18:04] VITALS: O2SAT 98
[2023-06-23 18:08] LABS: Bacteria 0 SEEN /hpf (None Seen); Mucous, Urine 0 SEEN /hpf (<or=2+); Red Blood Cells-Urine 0 SEEN /hpf (0-5); White Blood Cells 0 SEEN /hpf (0-5)
[2023-06-23 18:09] VITALS: BP 134/69; PULSE 71; RESP 14; O2SAT 98
[2023-06-23 18:11] LABS: Color, Urine Yellow (Yellow); Glucose, Dipstick Normal (Normal); Ketone-Dipstick Negative (Negative); Leukocyte Esterase-Dipstick 25 /ul (Negative); Nitrite-Dipstick Negative (Negative); Occult Blood-Urine 10 /ul (Negative); Protein-Dipstick 15 mg/dl (Negative); Urine Bilirubin Dipstick Negative (Negative); Urine Clarity Clear (Clear); Urine Urobilinogen Normal (Normal)
[2023-06-23 18:19] LABS: Squamous Epithelial Cells - UA 0-5 SEEN /hpf (5-10)
[2023-06-23] MEDS: Morphine 4 MG/ML Syringe IV (18:45)
[2023-06-23 18:52] LABS: Reflex Troponin-HS? (from REC) Y
[2023-06-23 19:16] LABS: Troponin-I HS 28 pg/mL (3.0-54.0)
--- NOTE | 2023-06-23 19:49 | ED.RN ---
NURSE TO NURSE CALLED TO [facility] [address]. PT STATES SHE IS CALLING HER FRIEND FOR A RIDE BACK TO THE FACILITY. AMBULATED OUT OF DEPT WITHOUT DIFFICULTY.
== END 2023-06-23 19:51 | disposition home or self-care (01) ==
PROVIDERS: Emergency Provider Emergency Medicine; PCP Internal Medicine; Visit Provider Emergency Medicine
DX: R55 Syncope and collapse (principal); J44.9 Chronic obstructive pulmonary disease, unspecified; R07.9 Chest pain, unspecified; I25.10 Atherosclerotic heart disease of native coronary artery without angina pectoris; I25.5 Ischemic cardiomyopathy; E78.5 Hyperlipidemia, unspecified; F17.210 Nicotine dependence, cigarettes, uncomplicated; Z82.49 Family history of ischemic heart disease and other diseases of the circulatory system; Z86.73 Personal history of transient ischemic attack (TIA), and cerebral infarction without residual deficits; G47.33 Obstructive sleep apnea (adult) (pediatric); I25.2 Old myocardial infarction; I10 Essential (primary) hypertension
CPT/HCPCS: 71045; 80048; 80076; 81001; 83690; 84484; 85025; 87811; 93005; 99284; A4216; J2405

== ENCOUNTER 2023-06-24 10:56 | Day surgery (SDC) | payer MEDICARE, MEDICAID, SELFPAY ==
--- NOTE | 2023-06-24 | IMM_PTH ---
PATIENT: ECHO KERNS LOC: EN U#:[id number] AGE/SX: 67/F ROOM: RE06/24/[address]: Dr. Rakesh Martinez DO : 1955 BED: DIS: 06/24/2023 SPEC #: [id number] RECD: 06/26/23 14:38 STATUS: ERIC REQ #: [id number] RADHIKA: 06/24/23 00:[address]: Rakesh Martinez DEPT: IMMUNOHISTOCHEMISTRY RECD BY: Sneha Malhotra ENTERED: 06/26/23 14:39 SP TYPE: IMMUNO OTHR DR: Yee Mccray, FREIGHT CLAIM INVESTIGATOR-C Tissues: Esophagus, NOS Procedures: P53 (initial) KI-67 (add) PHYSICIAN & [place] [phone] SPECIMEN INFORMATION: Tissue Source: Distal esophagus Clinical Info: Dysphagia Specimen Number: [id number] CPT code: 86554, 64327 METHODOLOGY: Deparaffinized sections of prefer/formalin-fixed tissue or PAP/DQ stained slides are incubated with monoclonal/polyclonal antibodies/oligonucleotide probes. Localization is made via biotin free immunoperoxidase method. Appropriate controls are performed and reacted as expected. Results on target cell population are indicated in the following table: RESULTS: ANTIBODY / CLONE RESULT P53 (DO-7) positive, missense mutation pattern Ki-67 (30-9) positive, moderate, focal These tests were developed and their performance characteristics determined by [facility]. They may not have been cleared or approved by the U.S. Food and Drug Administration. The FDA has determined that such clearance or approval is not necessary. The above immunohistochemical/dualISH markers are ordered and reviewed by the Pathologist. 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 See comment. SJ:indra 07/03/2023 The specimen is sent to [facility] for expert opinion, reviewed by Dr. Burrell and the above diagnosis is rendered. The complete report is viewable in the patient's EMR. Case has been reviewed in consultation with Dr. Webster who concurs with the above diagnosis. IDC:AM
[2023-06-24] MEDS: Lactated Ringers 1,000 ML 15 ML IV (11:22)
[2023-06-24 11:23] VITALS: BP 141/77; PULSE 83; RESP 18; TEMP 35.9; O2SAT 97; BMI 35.4
--- NOTE | 2023-06-24 11:47 | PCM.HP.BLA ---
History and Physical Date of Admission: 06/24/23 67 F who presents to the office today for PMH COPD; anxiety; depression; HTN; HLD; osteoporosis; cardiomyopathy; CHF; PVD [facility] ED 01.13.23 with retrosternal pain/pressure. Workup without concern. Discharged with Carafate and Zofran. [facility] ED 01.14.23 with right sided abdominal pain/ache with some vaginal spotting despite total hysterectomy history. ? Biochemical CBC, CMP, lipase without pertinent abnormality. ? AST L12-ALT 15-AP H196 ? CT abd/pel intraluminal density within gallbladder; diverticulosis; stable aortic aneurysm ? US RUQ normal liver and gallbladder and pancreas. *I established 05.22.23 Resident at [facility] where she did receive ST services. Postprandial nausea and pain in her ribs and back with dysphagia with anything that is put into her mouth. BM occur every 2-3 days with use of laxatives with hard stools with incomplete evacuation. ROS Const Constitutional: No anorexia, fatigue, fever(s), weight change or sleep problems Eyes Eyes: No change in vision ENT ENT: No abnormal hearing, difficulty swallowing, mouth lesions, tongue swelling or throat swelling Resp Respiratory: No cough or shortness of breath Cardio Cardiology: No chest pain at rest, chest pain with exertion, shortness of breath or dyspnea on exertion Gastro GI: No difficulty swallowing Genitourinary-Female: No difficulty urinating or burning urination Musc Musculoskeletal: No joint pain, joint swelling, muscle weakness or decreased muscle mass Skin Skin: No hair loss in leg, yellowing of the eye, itchy eyes, rash, skin ulcer or skin swelling Neuro Neurology: No abnormal hearing, abnormal movements, confusion, unsteady gait/balance or memory loss Psych Psychiatric: No anxiety, No confusion and No memory loss Endo Endocrine: No fatigue or weight change Aller/Imm Allergy/Immunologic: No itchy eyes, throat swelling or tongue swelling Pranav/Lymp Hematologic/Lymphatic: No easy bleeding, easy bruising or enlarged lymph nodes Exam Const General: cooperative and comfortable Nutritional Appearance: average body habitus and well nourished HENMT Head: normal to inspection Ears: hearing grossly normal bilaterally Nose: external nose normal Face and sinus: normal facial exam Mouth: oral mucosae normal Throat: posterior oropharynx normal Eyes General: appearance normal, both eyes and all related structures Neck Neck: normal visual inspection Chest Chest palpation & inspection: normal inspection of the chest and normal palpation of entire chest wall Resp Effort & Inspection: normal respiratory effort Auscultation: Bilateral: Clear to Auscultation Cardio Palpation: normal PMI Rate: regular rate Rhythm: regular rhythm GI Inspection: normal to inspection Auscultation: normal bowel sounds Percussion: normal to percussion Palpation: no hepatosplenomegaly Skin General: no rashes or lesions noted Neuro General: patient alert Extrem General: normal to inspection Psych Affect: normal affect Quality Reporting Tobacco Screening ([facility] 138) Smoking Status: Current some day smoker Assessment and Plan Assessment and Plan (1) Dysphagia: Status: Chronic Plan: Patient presents for chronic pains and symptoms that have been going on for 6-12 months and anxiety, saying that she is out of her Ativan, she thinks that is contributing to all of her symptoms, and her daughter also states that she is here looking for the possibility of placement to halfway facility. This is a complex case. The patient is experiencing pain when she swallows. The pain is in her left shoulder and her upper abdomen. She states whenever she swallows liquids or food she has pain immediately. This past night, she states she was up all night sick after having the pain. There is not a delay with the onset of pain after eating but she does have some pain in her right upper quadrant and they are both concerned that she may have gallstones because they were told that at some point in the past. She states she has been generally weak for about 3 weeks and trouble getting around her house/apartment because of feeling very weak and sweating but no other exertional specific symptoms. She also complains of esophageal dysphagia. The differential diagnosis for abdominal pain esophageal dysphagia does include IBS, esophageal spasm, esophageal dysmotility disorder, H. pylori associated gastritis. She will undergo an upper endoscopy with possible dilation of the upper esophagus. She will also need an MRCP because she had a ultrasound that showed a dilated common bile duct up to 7 mm in the setting of normal liver enzymes. Differential diagnosis could be ampullary lesion, distal biliary stricture, choledochal cyst, micro choledocholithiasis. She is okay with this plan. I have examined the patient and the H&P has been reviewed. There are no clinical changes since date of exam.
[2023-06-24 12:12] VITALS: BP 141/77; BP 89/61; PULSE 78; RESP 18; TEMP 36.2; O2SAT 94
--- NOTE | 2023-06-24 12:14 | OP.EGD_ITS ---
Patient Name: Marcia Mascorro Procedure Date: 06/24/2023 11:50 AM Date of : 1955 Age: 67 Procedure: Upper GI endoscopy Indications: Dysphagia, Heartburn, Failure to respond to medical treatment Providers: Rakesh Martinez DO Medicines: Monitored Anesthesia Care Patient Profile: This is a 67 year old female. Refer to note in patient chart for documentation of history and physical. Patient has symptoms of acute dysphagia and dysphagia with solids. Complications: No immediate complications. Procedure: Pre-Anesthesia Assessment: - Prior to the procedure, a History and Physical was performed, and patient medications and allergies were reviewed. The patient is competent. The risks and benefits of the procedure and the sedation options and risks were discussed with the patient. All questions were answered and informed consent was obtained. Patient identification and proposed procedure were verified by the physician in the pre-procedure area. Mental Status Examination: alert and oriented. Airway Examination: normal oropharyngeal airway and neck mobility. Respiratory Examination: clear to auscultation. CV Examination: normal. Prophylactic Antibiotics: The patient does not require prophylactic antibiotics. Prior Anticoagulants: The patient has taken no anticoagulant or antiplatelet agents. ASA Grade Assessment: II - A patient with mild systemic disease. After reviewing the risks and benefits, the patient was deemed in satisfactory condition to undergo the procedure. The anesthesia plan was to use monitored anesthesia care (MAC). Immediately prior to administration of medications, the patient was re-assessed for adequacy to receive sedatives. The heart rate, respiratory rate, oxygen saturations, blood pressure, adequacy of pulmonary ventilation, and response to care were monitored throughout the procedure. The physical status of the patient was re-assessed after the procedure. After obtaining informed consent, the endoscope was passed under direct vision. Throughout the procedure, the patient's blood pressure, pulse, and oxygen saturations were monitored continuously. The gastroscope was introduced through the mouth, and advanced to the second part of duodenum. The upper GI endoscopy was accomplished without difficulty. The patient tolerated the procedure well. Scope In: 12:00:22 PM Scope Out: 12:06:27 PM Total Procedure Duration Time 0 hours 6 minutes 5 seconds Findings: There were esophageal mucosal changes secondary to established Sanchez's disease present in the lower third of the esophagus. The maximum longitudinal extent of these mucosal changes was 4 cm in length. Mucosa was biopsied with a cold forceps for histology in a targeted manner at intervals of 1 cm in the lower third of the esophagus. One specimen bottle was sent to pathology. Verification of patient identification for the specimen was done. Estimated blood loss was minimal. LA Grade A (one or more mucosal breaks less than 5 mm, not extending between tops of 2 mucosal folds) esophagitis with no bleeding was found 35 to 38 cm from the incisors. A moderate Schatzki ring was found in the upper third of the esophagus. A guidewire was placed and the scope was withdrawn. Dilation was performed with a Savary dilator with no resistance at 60 Fr. The dilation site was examined following endoscope reinsertion and showed moderate mucosal disruption. Estimated blood loss was minimal. A hiatal hernia was present. The exam of the stomach was otherwise normal. The first portion of the duodenum was normal. Impression: - Esophageal mucosal changes secondary to established Sanchez's disease. Biopsied. - LA Grade A reflux esophagitis with no bleeding. - Moderate Schatzki ring. Dilated. - Hiatal hernia. - Normal first portion of the duodenum. Recommendation: - Discharge patient to home. - Resume previous diet. - Continue present medications. - Await pathology results. - Use Protonix (pantoprazole) 40 mg PO BID. Procedure Code(s): --- Professional --- 05592, Esophagogastroduodenoscopy, flexible, transoral; with insertion of guide wire followed by passage of dilator(s) through esophagus over guide wire 30069, 59,51, Esophagogastroduodenoscopy, flexible, transoral; with biopsy, single or multiple CPT copyright 2021 [employer]. All rights reserved. The codes documented in this report are preliminary and upon lockstitch zipper setter review may be revised to meet current compliance requirements. Rakesh Martinez DO 06/24/2023 12:13:24 PM This report has been signed electronically. Number of Addenda: 0 Note Initiated On: 06/24/2023 11:50 AM
--- NOTE | 2023-06-24 12:14 | OP.CCLET_ITS ---
06/24/2023 Sandy Barbosa [address] [place] [address] Re : Upper GI endoscopy procedure for Marcia Mascorro Dear Dr. Barbosa This procedure was performed on Saturday, June 24, 2023. My impressions and recommendations are as follows: Impressions : - Esophageal mucosal changes secondary to established Sanchez's disease. Biopsied. - LA Grade A reflux esophagitis with no bleeding. - Moderate Schatzki ring. Dilated. - Hiatal hernia. - Normal first portion of the duodenum. Recommendations : - Discharge patient to home. - Resume previous diet. - Continue present medications. - Await pathology results. - Use Protonix (pantoprazole) 40 mg PO BID. My findings are described in the full procedure note, which is enclosed. If I can be of further assistance, please feel free to contact me at . Sincerely, Rakesh Friend, DO 06/24/2023 12:13:24 PM This report has been signed electronically.
--- NOTE | 2023-06-24 12:15 | EGD_PTH ---
[id number] LOC: EN U#:[id number] AGE/SX: 67/F ROOM: RE06/24/[address]: Dr. Rakesh Martinez DO : 1955 BED: DIS: 06/24/2023 SPEC #: [id number] RECD: 06/24/23 13:54 STATUS: ERIC RE[place] #: [id number] RADHIKA: 06/24/23 12:[address]: Rakesh Martinez DEPT: SURGICAL PATHOLOGY RECD BY: Karyn Swain ENTERED: 06/25/23 09:42 SP TYPE: EGD BIOPSY OTHR DR: Yee Mccray, EQUIPMENT SUPERINTENDENT-C Tissues: Esophagus, NOS Procedures: Gen Path Consultation (on slides) Special Stain Group II Surgery Specimen Level IV Alcian Blue/PAS (control) HEADER OPERATION: EGD with biopsy and dilation PRE-OP DIAGNOSIS: Dysphagia TISSUE SUBMITTED: Distal esophagus biopsy MICROSCOPIC DIAGNOSIS Distal esophagus, biopsy: 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 See comment. SJ:indra 07/03/2023 COMMENT The specimen is sent to [facility] for expert opinion, reviewed by Dr. Burrell and the above diagnosis is rendered. The complete report is viewable in the patient's EMR. Alcian blue/PAS stain with matched control is used in the evaluation of the specimen. Immunohistochemistry ([id number]) for P53 and Ki-67 will be performed and results will be reported separately. Correlation with clinical, endoscopic findings and appropriate follow up are necessary. Case has been reviewed in consultation with Dr. Webster who concurs with the above diagnosis. IDC:[place] MICROSCOPIC DESCRIPTION Slides are reviewed. GROSS DESCRIPTION Received in fixative is one container labeled with the patient's name and designated distal esophagus. The specimen consists of multiple irregular fragments of light goodson soft tissue that in aggregate measure 1.5 x 0.7 x 0.1 cm. The specimen is totally submitted in one cassette. / AM:indra 06/25/2023 TC:5 CPT: 22525, 80485
[2023-06-24 12:20] VITALS: BP 141/77; BP 92/64; PULSE 79; RESP 18; O2SAT 94
[2023-06-24 12:25] VITALS: BP 103/64; BP 141/77; PULSE 79; RESP 18; TEMP 35.9; O2SAT 96
[2023-06-24 12:28] VITALS: BP 141/77; BP 87/58; PULSE 78; RESP 18; O2SAT 95
[2023-06-24 13:03] VITALS: BP 141/77
== END 2023-06-24 13:09 | disposition home or self-care (01) ==
LOC: EN 10:58 → AC 10:59
PROVIDERS: PCP Internal Medicine; Referring Provider Internal Medicine Gastroenterology; Visit Provider Internal Medicine Gastroenterology
PROC: 0DJ08ZZ Inspection of Upper Intestinal Tract, Via Natural or Artificial Opening Endoscopic (ICD-10-PCS; CPT 43235; principal; 2023-06-24 12:10)
DX: K22.711 Barrett's esophagus with high grade dysplasia (principal); J43.9 Emphysema, unspecified; K22.2 Esophageal obstruction; K21.00 Gastro-esophageal reflux disease with esophagitis, without bleeding; K44.9 Diaphragmatic hernia without obstruction or gangrene; I25.5 Ischemic cardiomyopathy; I25.10 Atherosclerotic heart disease of native coronary artery without angina pectoris; I25.2 Old myocardial infarction; I10 Essential (primary) hypertension; E78.00 Pure hypercholesterolemia, unspecified; F32.A Depression, unspecified; F41.9 Anxiety disorder, unspecified; F17.210 Nicotine dependence, cigarettes, uncomplicated; Z79.02 Long term (current) use of antithrombotics/antiplatelets; Z79.51 Long term (current) use of inhaled steroids; Z79.899 Other long term (current) drug therapy; Z86.73 Personal history of transient ischemic attack (TIA), and cerebral infarction without residual deficits
CPT/HCPCS: 43239; 43248; 88305; 88313; 88325; 88341; 88342; J7120; C1769

== ENCOUNTER → 2023-06-25 | Outpatient (CLI) | payer MEDICARE, MEDICAID, SELFPAY ==
--- NOTE | 2023-06-25 12:42 | MRI_ITS ---
Abdominal MRI and MRCP without contrast 06/25/2023 1:19 PM COMPARISON: None CLINICAL HISTORY: bile duct abnormality TECHNIQUE: Multiplanar and multisequence MR images of the abdomen were obtained with MRCP sequence. Three-dimensional post-processing reconstructions were performed. FINDINGS: Liver: Unremarkable Gallbladder: Unremarkable Bile Ducts: There is mild dilatation of the common bile duct and common hepatic duct measuring up to 8 mm in diameter. No obstructing stone, mass or stricture. Pancreas: Unremarkable Spleen: Unremarkable Adrenal Glands: Unremarkable Kidneys: Unremarkable GI Tract: Unremarkable Lymphadenopathy: Absent Ascites: Absent Bones: No suspicious lesions MRI/MRCP Abdomen without Contrast IMPRESSION: Mild dilatation of the CBD and CHD with no obstructing stone, mass or stricture. Consider ERCP to evaluate for occult stone or mass at the ampulla. Electronically Signed: Karthik Duenas MD at 16:09 EDT ,
[2023-06-25 13:35] LABS: Amphetamine Urine VISTA NEGATIVE (<1000 ng/mL); Barbiturate Urine VISTA NEGATIVE (< 200 ng/mL); Benzodiazepine Urine VISTA POSITIVE (< 200 ng/mL); Cocaine Urine VISTA NEGATIVE (< 300 ng/mL); Ecstacy Urine VISTA NEGATIVE (< 500 ng/mL); Methadone Urine VISTA NEGATIVE (< 300 ng/mL); PCP Urine VISTA NEGATIVE (< 25 ng/mL); THC Urine VISTA NEGATIVE (< 50 ng/mL); Vista UDS pH Range 5
== END | disposition home or self-care (01) ==
LOC: MRI 12:38
PROVIDERS: Anesthesiology Pain Medicine; PCP Internal Medicine; Referring Provider Internal Medicine Gastroenterology; Visit Provider Internal Medicine Gastroenterology
DX: K83.8 Other specified diseases of biliary tract (principal); F11.20 Opioid dependence, uncomplicated
CPT/HCPCS: 74181; 80307

== ENCOUNTER → 2023-07-16 | Outpatient (CLI) | payer MEDICARE, MEDICAID, SELFPAY ==
[2023-07-16 14:51] LABS: Absolute Lymphocyte Count 2.38 X10^3/uL (0.83-4.51); Absolute Neutrophil Count 3.6 X10^3/uL (2.0-7.7); Basophil# 0.06 X10^3/uL; Basophil% 0.9 % (0-1); Eosinophil# 0.28 X10^3/uL; Eosinophils% 4.1 % (0-5); Hematocrit 44.6 % (37-47); Hemoglobin 14.4 g/dL (12.0-15.0); Lymphocyte # 2.38 X10^3/ul (0.83-4.51); Lymphocyte % 34.4 % (19-41); Mean Corp Hgb Conc 32.3 g/dL (32-36); Mean Corpuscular Hgb 31.8 pg (27.0-32.0); Mean Corpuscular Volume 98.5 fL (81-99); Mean Platelet Vol. 9.1 fl (6.2-12.0); Monocyte# 0.57 X10^3/uL; Monocyte% 8.2 % (0-10); NRBC Flagged by Analyzer 0 % (0-5); Neutrophil # 3.59 X10^3/uL (2.7-7.7); Platelet Count 256 K/mm3 (150-450); RBC Distribution Width CV 13.2 % (11.6-14.6); RBC Distribution Width SD 47.7 fl (35.1-43.9); Red Blood Count 4.53 M/mm3 (4.2-5.4); White Blood Count 6.9 K/mm3 (4.4-11.0)
[2023-07-16 15:13] LABS: Anion Gap 2 (5-15); BNP,B-Type NATRIURETIC PEPTIDE 80.9 pg/mL (0-100); BUN 22 mg/dL (7-18); BUN/Creat Ratio 17.7 RATIO (10-20); Calcium,Total 9.3 mg/dL (8.5-10.1); Chloride 106 mmol/L (98-107); Creatinine, Serum 1.24 mg/dL (0.55-1.02); EST Glomerular Filtration Rate 46 mL/min (>60); Est Glom Filt Rate - Afr Amer 56 mL/min (>60); Glucose 115 mg/dL (74-106); Potassium 4.5 mmol/L (3.5-5.1); Sodium Level 139 mmol/L (136-145)
== END | disposition home or self-care (01) ==
LOC: LAB 14:17
PROVIDERS: PCP Internal Medicine; Referring Provider Nurse Practitioner Gerontology; Visit Provider Nurse Practitioner Gerontology
DX: R06.09 Other forms of dyspnea (principal)
CPT/HCPCS: 36415; 80048; 83880; 85025

== ENCOUNTER 2023-07-19 19:34 | Emergency (ER) | payer MEDICARE, MEDICAID, SELFPAY ==
[2023-07-19 19:35] VITALS: BP 122/88; PULSE 78; RESP 18; TEMP 36.7; O2SAT 98; BMI 33.0
[2023-07-19 20:01] VITALS: O2SAT 93
--- NOTE | 2023-07-19 20:01 | EKG12_ITS ---
Test Reason : CP Blood Pressure : / mmHG Vent. Rate : 076 BPM Atrial Rate : 076 BPM P-R Int : 132 ms QRS Dur : 098 ms QT Int : 378 ms P-R-T Axes : 058 004 091 degrees QTc Int : 425 ms Normal sinus rhythm Cannot rule out Inferior infarct , age undetermined Cannot rule out Anteroseptal infarct , age undetermined Abnormal ECG Confirmed by GEO ORNELAS MD ([id number]), desk editor MICAH SALMERON ([id number]) on 07/28/2023 2:13:11 PM Referred By: Confirmed By:GEO ORNELAS MD
--- NOTE | 2023-07-19 20:12 | EX.ED.DYSGE1 ---
HPI <BACILIO Edouard - Last Filed: 07/19/23 20:55> History of Present Illness Chief Complaint: Chest Pain Narrative Narrative: 67-year-old female with PMH of HTN, HLD, CAD, CHF, GERD, DVT, tobacco use presents with midsternal chest pain radiating to the left arm that started around 6 PM while sitting at her longterm. She has chronic nausea but denied increased nausea and no vomiting or diaphoresis. She states her lungs hurt and she has had a dry cough recently. She also has upper abdominal cramping. She had nursing staff check her blood pressure and reported it was 200+ systolic so they sent her in for evaluation. She is on Xarelto and Plavix. PFSH <BACILIO Edouard - Last Filed: 07/19/23 20:55> [facility] Medical History Anxiety and depression Arthritis Atherosclerotic heart disease of [place] coronary artery without angina pectoris Back pain Bullous emphysema Calculus of left kidney Cardiology follow-up encounter Chest pain Chronic cough COPD (chronic obstructive pulmonary disease) COPD with asthma Depression Difficulty chewing DVT (deep venous thrombosis) Easy bruising Elevated troponin Esophagitis, unspecified without bleeding Essential hypertension Excessive bleeding Gastric reflux GERD (gastroesophageal reflux disease) High cholesterol History of CHF (congestive heart failure) History of echocardiogram History of edema History of irregular heartbeat History of non-ST elevation myocardial infarction (NSTEMI) (09/01/21) History of pain when walking History of renal disease History of stress test History of ulceration Hoarseness Hyperlipidemia Injury of back Ischemic cardiomyopathy Kidney stones Leg cramps Myocardial infarct Obesity (BMI 30.0-34.9) Old anterior wall myocardial infarction Opiate dependence EVELYN (obstructive sleep apnea) Osteoporosis Other chronic pain Personal history of transient ischemic attack (TIA), and cerebral infarction without residual deficits Post-menopausal Shortness of breath on exertion Smoker Sustained SVT TIA (transient ischemic attack) Tobacco abuse Unspecified combined 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 Wears glasses Home Medications atorvastatin 40 mg tablet (Lipitor) 40 mg PO QHS 30 days #30 tabs 01/04/23 [Rx Last Taken Unknown] clopidogrel 75 mg tablet (Plavix) 75 mg PO DAILY 30 days #30 tabs 01/04/23 [Rx Last Taken 06/20/23] duloxetine 30 mg capsule,delayed release (Cymbalta) 30 mg PO DAILY #30 caps 01/04/23 [Rx Last Taken Unknown] lisinopril 2.5 mg tablet 2.5 mg PO DAILY 30 days #30 tabs 01/04/23 [Rx Last Taken 06/24/23] rivaroxaban 20 mg tablet See Rx Instructions .Route .COMPLEX 30 days #30 tabs 01/04/23 [Rx Last Taken Unknown] ondansetron 4 mg disintegrating tablet 4 mg PO Q8H PRN PRN Nausea #12 tabs 01/13/23 [Rx Last Taken Unknown] albuterol sulfate 90 mcg/actuation aerosol inhaler 2 puff inhalation Q6H PRN shortness of breath or wheezing #8.5 grams 02/17/23 [Rx Last Taken Unknown] budesonide-formoterol HFA 160 mcg-4.5 mcg/actuation aerosol inhaler (Symbicort) 1 puff inhalation BID #10.2 grams 02/17/23 [Rx Last Taken Unknown] inhalational spacing device (Aerochamber MV spacer) #1 ea 02/17/23 [Rx Last Taken Unknown] tiotropium bromide 2.5 mcg/actuation mist for inhalation (Spiriva Respimat) 2 puff inhalation DAILY #4 grams 02/17/23 [Rx Last Taken Unknown] hydrocodone-acetaminophen 5-325mg 5mg-325mg 1 tab PO TID PRN pain 06/17/23 [History Last Taken Unknown] lansoprazole 30 mg capsule,delayed release 30 mg PO DAILY 06/17/23 [History Last Taken Unknown] pantoprazole 40 mg tablet,delayed release 40 mg PO Q12H #60 tabs 06/24/23 [Rx Last Taken Unknown] carvedilol 12.5 mg tablet 12.5 mg PO BID #60 tabs 07/16/23 [Rx Last Taken Unknown] furosemide 40 mg tablet 40 mg PO DAILY #30 tabs 07/16/23 [Rx Last Taken Unknown] gabapentin 300 mg capsule 400 mg PO TID nerve pain 07/16/23 [History Last Taken Unknown] lorazepam 1 mg tablet (Ativan) 1 mg PO BID PRN 07/16/23 [History Last Taken Unknown] Allergy/AdvReac Type Severity Reaction Status Date / Time No Known Allergies Allergy Verified 07/19/23 19:37 Family History Mother Hypertension CAD (coronary artery disease) CVA (cerebral vascular accident) Myocardial infarction Grandmother Myocardial infarction Surgical History History of cardiac catheterization History of hysterectomy History of left heart catheterization (01/20/22) History of total hysterectomy Hx of appendectomy Social History household members: none Smoking Status: Current some day smoker tobacco type: cigarettes alcohol intake: never substance use type: does not use ROS <BACILIO Edouard - Last Filed: 07/19/23 20:55> ROS ED ROS Narrative Constitutional: Negative for fever, chills, malaise. CVS: Positive for chest pain. Negative for palpitations, syncope. Respiratory: Positive for cough. Negative for shortness of breath. GI: Positive for abdominal pain, nausea. No vomiting, diarrhea, melena, hematochezia. Neuro: Negative for headache. EXAM <BACILIO Edouard - Last Filed: 07/19/23 20:55> Physical Exam Narrative Exam Narrative: CONST: Patient sitting in no acute distress. EYES: Normal inspection. NECK: Normal inspection. RESP: No respiratory distress, CTAB. CVS: Regular rate and rhythm, no murmur, no gallop. ABD: Soft and nontender, no guarding or rebound, nondistended, no hepatosplenomegaly. SKIN: Color normal, no rash, warm, dry, intact. EXTREMITIES: Normal appearance, no pedal edema. NEURO: Oriented x4. PSYCH: Normal affect. Const Vital Signs: 07/19/23 19:35 07/19/23 20:01 07/19/23 20:34 Temperature 98.0 F Temperature Source Temporal Pulse Rate 78 64 Respiratory Rate 18 16 Blood Pressure 122/88 H 124/69 H Blood Pressure Mean 99 87 Pulse Ox 98 93 95 Oxygen Delivery Method Room Air Room Air Room Air 07/19/23 21:00 Temperature Temperature Source Pulse Rate 67 Respiratory Rate 16 Blood Pressure 126/70 H Blood Pressure Mean 88 Pulse Ox 92 Oxygen Delivery Method Room Air <Dr. Lo Chu MD - Last Filed: 07/19/23 22:57> Physical Exam Const Vital Signs: 07/19/23 19:35 07/19/23 20:01 07/19/23 20:34 Temperature 98.0 F Temperature Source Temporal Pulse Rate 78 64 Respiratory Rate 18 16 Blood Pressure 122/88 H 124/69 H Blood Pressure Mean 99 87 Pulse Ox 98 93 95 Oxygen Delivery Method Room Air Room Air Room Air 07/19/23 21:00 Temperature Temperature Source Pulse Rate 67 Respiratory Rate 16 Blood Pressure 126/70 H Blood Pressure Mean 88 Pulse Ox 92 Oxygen Delivery Method Room Air MDM <BACILIO Edouard - Last Filed: 07/19/23 20:55> [facility] Narrative Medical decision making narrative: History gathered from: Patient and family member Patient presents with chest pain and reported elevated blood pressure. She appears well and nontoxic. Vital signs are within normal limits?BP is 122/88. Normal cardiopulmonary exam. She has mild epigastric tenderness with no peritoneal signs. She states she has chronic nausea and epigastric issues. I ordered a cardiac work-up plus upper abdominal labs. I am not concerned for PE as she is anticoagulated on Xarelto and Plavix. EKG is normal sinus rhythm at 76 bpm with no acute ischemic changes. CBC, CMP and lipase are unremarkable. Abdominal exam is benign and I do not think imaging is indicated. First troponin is 25, delta pending. This is within the range she has been before. If serial enzymes are negative I feel she can be discharged back to SNF. She states she has outpatient cardiology testing tomorrow. Lab Data Attestation: I reviewed the patient's lab results. Labs: Laboratory Results - last 24 hr 07/19/23 07/19/23 19:40 22:26 WBC 8.5 RBC 4.76 Hgb 14.8 Hct 46.6 MCV 97.9 MCH 31.1 MCHC 31.8 L RDW Std Deviation 46.8 H RDW Coeff of Sariah 13.0 Plt Count 287 MPV 9.3 Immature Gran % (Auto) 0.500 Neut % (Auto) 62.2 Lymph % (Auto) 26.1 Roane % (Auto) 7.0 Eos % (Auto) 3.4 Baso % (Auto) 0.8 Absolute Neuts (auto) 5.3 Absolute Lymphs (auto) 2.22 Nucleated RBC % 0 Sodium 138 Potassium 4.2 Chloride 102 Carbon Dioxide 35.0 H Anion Gap 1 L BUN 23 H Creatinine 1.20 H Estim Creat Clear Calc 43.17 Est GFR (MDRD) Af Amer 58 L Est GFR (MDRD) Non-Af 48 L BUN/Creatinine Ratio 19.2 Glucose 117 H Calcium 9.3 Total Bilirubin 0.20 AST 22 ALT 33 Alkaline Phosphatase 152 H Troponin I High Sens 25 26 Total Protein 7.9 Albumin 3.7 Globulin 4.2 Albumin/Globulin Ratio 0.9 Lipase 19 Radiography Diagnostic Testing: Clinical Impression(s) from Imaging Studies Chest X-Ray 07/19/23 20:25 IMPRESSION: No acute cardiopulmonary disease. Electronically Signed: Liza Cardenas MD at 20:45 EST , ED attending interpretation of 1- view chest x-ray shows cardiomegaly, no acute infiltrate, edema, or effusion. EKG Initial EKG: Attestation: I personally reviewed and interpreted this EKG as follows: Interpretation: Sinus Rhythm Comments: Normal sinus rhythm at 76 bpm, normal intervals, no acute ischemic changes <Dr. Lo Chu MD - Last Filed: 07/19/23 22:57> [facility] Lab Data Labs: Laboratory Results - last 24 hr 07/19/23 07/19/23 19:40 22:26 WBC 8.5 RBC 4.76 Hgb 14.8 Hct 46.6 MCV 97.9 MCH 31.1 MCHC 31.8 L RDW Std Deviation 46.8 H RDW Coeff of Sariah 13.0 Plt Count 287 MPV 9.3 Immature Gran % (Auto) 0.500 Neut % (Auto) 62.2 Lymph % (Auto) 26.1 Roane % (Auto) 7.0 Eos % (Auto) 3.4 Baso % (Auto) 0.8 Absolute Neuts (auto) 5.3 Absolute Lymphs (auto) 2.22 Nucleated RBC % 0 Sodium 138 Potassium 4.2 Chloride 102 Carbon Dioxide 35.0 H Anion Gap 1 L BUN 23 H Creatinine 1.20 H Estim Creat Clear Calc 43.17 Est GFR (MDRD) Af Amer 58 L Est GFR (MDRD) Non-Af 48 L BUN/Creatinine Ratio 19.2 Glucose 117 H Calcium 9.3 Total Bilirubin 0.20 AST 22 ALT 33 Alkaline Phosphatase 152 H Troponin I High Sens 25 26 Total Protein 7.9 Albumin 3.7 Globulin 4.2 Albumin/Globulin Ratio 0.9 Lipase 19 Radiography Diagnostic Testing: Clinical Impression(s) from Imaging Studies Chest X-Ray 07/19/23 20:25 IMPRESSION: No acute cardiopulmonary disease. Electronically Signed: Liza Cardenas MD at 20:45 EST , Treatment and Re-Evaluation :: Patient seen and evaluated with CHELSEA. I personally interviewed and examined the patient. I was involved in all aspects of patient's orders, interpretation of results, and treatment. Patient presents secondary to chest pressure. She states that the ECF this afternoon she got chest pressure and her blood pressure was noted to be significantly elevated. She states she asked staff to give her her blood pressure medication which they did. They still insisted that they transfer her to the emergency room. Patient states she was recently told her heart is only functioning at 20%. She is due to have a stress test and an echocardiogram tomorrow. Patient sitting upright in bed no acute distress. Head neck examination unremarkable. Heart is regular rate rhythm. Lung sounds are clear. Abdomen is soft and nontender. Neuro exam reveals no focal neurologic deficits. EKG is sinus at 76 with chronic changes, unchanged when compared to prior study from June 23, 2023. No acute ischemia. CBC was normal white count 8.5 with a hemoglobin of 14.8. Chemistry studies reveal a creatinine 1.20. Glucose is 117. Troponin initially 25 with 2-hour repeat of 26. At this time patient is resting comfortably. Chest x-ray per my interpretation reveals chronic changes with no focal findings. Patient be discharged back to her ECF to continued plan testing tomorrow. She is comfortable this plan. Discharge Plan Triage Chief Complaint: Chest Pain ED Midlevel Provider: Stefanie Soto ED Provider: Lo Chu Dx/Rx/DC Orders Clinical Impression: Chest pain Instructions: ED Chest Pain, Uncertain Cause Prescriptions: No Action budesonide-formoterol [Symbicort] 160-4.5 mcg/actuation HFA aerosol inhaler 1 puff inhalation BID Qty: 10.2 11RF Spiriva Respimat 2.5 mcg/actuation mist 2 puff inhalation DAILY Qty: 4 11RF albuterol sulfate 90 mcg/actuation HFA aerosol inhaler 2 puff inhalation Q6H MDD 10 puffs PRN (Reason: shortness of breath or wheezing) Qty: 8.5 6RF Rx Instructions: This inhaler must be used with a spacer device. (DME) Aerochamber MV Spacer See Rx Instructions .ROUTE .MEDSUPPLY Qty: 1 0RF Rx Instructions: As directed gabapentin 300 mg capsule 400 mg PO TID lorazepam [Ativan] 1 mg tablet 1 mg PO BID PRN carvedilol 12.5 mg tablet 12.5 mg PO BID Qty: 60 11RF furosemide 40 mg tablet 40 mg PO DAILY Qty: 30 11RF duloxetine [Cymbalta] 30 mg capsule,delayed release(DR/EC) 30 mg PO DAILY Qty: 30 0RF atorvastatin [Lipitor] 40 mg tablet 40 mg PO QHS 30 Days Qty: 30 0RF clopidogrel [Plavix] 75 mg tablet 75 mg PO DAILY 30 Days Qty: 30 0RF lisinopril 2.5 mg tablet 2.5 mg PO DAILY 30 Days Qty: 30 0RF rivaroxaban 20 mg tablet See Rx Instructions .ROUTE .COMPLEX 30 Days Qty: 30 0RF Dose Instruction: TAKE 1 TABLET BY MOUTH DAILY WITH EVENING MEAL Rx Instructions: TAKE 1 TABLET BY MOUTH DAILY WITH EVENING MEAL ondansetron 4 mg tablet,disintegrating 4 mg PO Q8H PRN PRN (Reason: Nausea) Qty: 12 0RF lansoprazole 30 mg capsule,delayed release(DR/EC) 30 mg PO DAILY hydrocodone-acetaminophen 5-325 mg tablet 1 tab PO TID PRN (Reason: pain) pantoprazole 40 mg tablet,delayed release (DR/EC) 40 mg PO Q12H Qty: 60 3RF Primary Care Provider: Yee Mccray NP Referrals: Yee Mccray NP, CYCLE DIRECTOR-C [Primary Care Provider] - Activity Restrictions/Additional Instructions: Follow-up for your cardiac testing tomorrow as scheduled. Disposition Disposition: Shelter Facility Discharge Location: [facility] [place]
[2023-07-19 20:23] LABS: Absolute Lymphocyte Count 2.22 X10^3/uL (0.83-4.51); Absolute Neutrophil Count 5.3 X10^3/uL (2.0-7.7); Basophil# 0.07 X10^3/uL; Basophil% 0.8 % (0-1); Eosinophil# 0.29 X10^3/uL; Eosinophils% 3.4 % (0-5); Hematocrit 46.6 % (37-47); Hemoglobin 14.8 g/dL (12.0-15.0); Lymphocyte # 2.22 X10^3/ul (0.83-4.51); Lymphocyte % 26.1 % (19-41); Mean Corp Hgb Conc 31.8 g/dL (32-36); Mean Corpuscular Hgb 31.1 pg (27.0-32.0); Mean Corpuscular Volume 97.9 fL (81-99); Mean Platelet Vol. 9.3 fl (6.2-12.0); NRBC Flagged by Analyzer 0 % (0-5); Neutrophil % 62.2 % (47-70); Platelet Count 287 K/mm3 (150-450); RBC Distribution Width SD 46.8 fl (35.1-43.9); Red Blood Count 4.76 M/mm3 (4.2-5.4); White Blood Count 8.5 K/mm3 (4.4-11.0)
--- NOTE | 2023-07-19 20:25 | RAD_ITS ---
STUDY: X-RAY CHEST REASON FOR EXAM: Female, 67 years old. chest pain TECHNIQUE: Single AP portable view of the chest. COMPARISON: 06/23/2023. FINDINGS: The lungs are clear and expanded. There is no demonstrated pleural abnormality. Mild to moderate cardiomegaly. Normal mediastinum and dru. Normal visualized pulmonary arteries. There is atherosclerotic calcification of the aortic arch with tortuosity. There is demineralization of the osseous structures. There is degenerative osteoarthritis of the bilateral shoulders and spine. There is no demonstrated abnormality of the visualized soft tissue structures of the upper abdomen. RAD/Chest 1 View (Portable) IMPRESSION: No acute cardiopulmonary disease. Electronically Signed: Liza Cardenas MD at 20:45 EST ,
[2023-07-19 20:34] VITALS: BP 124/69; PULSE 64; RESP 16; O2SAT 95
[2023-07-19 20:51] LABS: ALB/GLOB Ratio 0.9 RATIO (0.9-2.4); AST(SGOT) 22 U/L (15-37); Alanine Aminotransfer ALT/SGPT 33 U/L (13-56); Albumin, Serum 3.7 g/dL (3.2-5.0); Alkaline Phosphatase 152 U/L (45-117); Anion Gap 1 (5-15); BUN 23 mg/dL (7-18); BUN/Creat Ratio 19.2 RATIO (10-20); Calcium,Total 9.3 mg/dL (8.5-10.1); Chloride 102 mmol/L (98-107); EST Glomerular Filtration Rate 48 mL/min (>60); Est Glom Filt Rate - Afr Amer 58 mL/min (>60); Estimated Creatinine Clearance 43.17 ml/min; Globulin 4.2 g/dL (2.2-4.2); Glucose 117 mg/dL (74-106); Lipase 19 U/L (13-75); Potassium 4.2 mmol/L (3.5-5.1); Protein, Total 7.9 g/dL (6.4-8.2); Sodium Level 138 mmol/L (136-145); Troponin-I HS (w/2H Reflex) 25 pg/mL (3.0-54.0)
[2023-07-19 21:00] VITALS: BP 126/70; PULSE 67; RESP 16; O2SAT 92
[2023-07-19] MEDS: HYDROcodone Bitartrate/Apap 5/325 Tablet PO (21:01)
[2023-07-19 22:00] VITALS: BP 130/70; PULSE 66; RESP 16; O2SAT 92
[2023-07-19 22:21] LABS: Reflex Troponin-HS? (from REC) Y
[2023-07-19 22:48] LABS: Troponin-I HS 26 pg/mL (3.0-54.0)
[2023-07-19 23:10] VITALS: BP 130/78; PULSE 66; RESP 16; TEMP 36.6; O2SAT 98
== END 2023-07-19 23:11 | disposition skilled nursing facility (03) ==
PROVIDERS: Physician Assistant; Emergency Provider Emergency Medicine; PCP Internal Medicine; Visit Provider Emergency Medicine
DX: R07.9 Chest pain, unspecified (principal); I11.0 Hypertensive heart disease with heart failure; I50.42 Chronic combined systolic (congestive) and diastolic (congestive) heart failure; I25.10 Atherosclerotic heart disease of native coronary artery without angina pectoris; I25.5 Ischemic cardiomyopathy; E78.00 Pure hypercholesterolemia, unspecified; I25.2 Old myocardial infarction; G47.33 Obstructive sleep apnea (adult) (pediatric); K21.9 Gastro-esophageal reflux disease without esophagitis; Z79.899 Other long term (current) drug therapy; Z79.01 Long term (current) use of anticoagulants; Z86.718 Personal history of other venous thrombosis and embolism; Z86.73 Personal history of transient ischemic attack (TIA), and cerebral infarction without residual deficits
CPT/HCPCS: 71045; 80053; 83690; 84484; 85025; 93005; 99284; A4216

== ENCOUNTER → 2023-07-20 | Outpatient (CLI) | payer MEDICARE, MEDICAID, SELFPAY ==
--- NOTE | 2023-07-20 07:04 | ECHOCS_ITS ---
Reason For Study: CHEST PAIN Procedure This was a 2D Doppler, Color Flow transthoracic echocardiogram. The study was technically difficult. Exam performed in department. Left Ventricle Moderately dilated left ventricle. The estimated ejection fraction is 30-35 %. Right Ventricle Normal right ventricle. Normal systolic function. Atria The left atrium is mildly enlarged. Normal right atrium. Mitral Valve The mitral valve is structurally normal. No prolapse or stenosis seen. Mild (1+) mitral valve insufficiency. Tricuspid Valve Normal tricuspid valve. Trivial tricuspid valve insufficiency. Aortic Valve Normal aortic valve. Pulmonic Valve The pulmonic valve is not well visualized. Great Vessels Normal aortic root. Pericardium/Pleural No pericardial effusion. Medication Diluted definity 4ml given slow IV push to enhance endocardial definition. MMode/2D Measurements & Calculations RVDd: 3.3 cm Ao root diam: 3.1 cm LAV(MOD-bp): 40.8 ml LAV(MOD-bp) Indexed: 19.7 ml/m2 LAV(MOD-sp2): 36.9 ml LAV(MOD-sp4): 43.0 ml SV(MOD-sp4): 51.3 ml SV(sp4-el): 55.2 ml LVAd ap4: 36.5 cm2 LVLd ap4: 8.1 cm EDV(MOD-sp4): 132.3 ml EDV(sp4-el): 139.0 ml LVAs ap4: 27.4 cm2 LVLs ap4: 7.6 cm ESV(MOD-sp4): 80.9 ml ESV(sp4-el): 83.8 ml EF(MOD-sp4): 38.8 % EF(sp4-el): 39.7 % LA dimension(2D): 3.8 cm LA A4 area: 16.7 cm2 RA A4 area: 13.5 cm2 Time Measurements MV dec time: 0.26 sec Doppler Measurements & Calculations MV E max bryson: 57.5 cm/sec Lat Peak E' Bryson: 4.1 cm/sec Med Peak E' Bryson: 5.4 cm/sec MV A max bryson: 76.4 cm/sec E/E' lat: 14.0 E/E' med: 10.7 MV E/A: 0.75 Ao V2 max: 147.9 cm/sec LV V1 max: 84.9 cm/sec PA V2 max: 80.9 cm/sec Ao max P.8 mmHg LV V1 max P.9 mmHg TR max bryson: 227.0 cm/sec TR max P.6 mmHg ECHO/Echo Complete W/ Contrast Interpretation Summary The estimated ejection fraction is 30-35 %. Contrast echo used Definity to better delineate the endocardial border Apical and anterior hypokinesia which is severe in comparison to the rest of th e myocardium. Improvement in the ejection fraction in comparison to previous echo of December, ejection fraction of 20%] No apical thrombus noted Ordering Physician: Marsha Alonso Referring Physician: NORA CRESPO Performed By: Molly Shaffer RDCS
--- NOTE | 2023-07-20 16:13 | STRESSREP_ITS ---
Stress Test Report Pharmacologic?pharmacologic myocardial perfusion stress test. Indication; 67-year-old female patient has history of cardiomyopathy with EF in the range of 25% This patient with multiple medical comorbidities With history of hyperlipidemia, hypertension, smoker, significant family history of CAD COPD, GERD anxiety and depression history emphysema. Also had a history of This patient had history of non-ST elevation [place] in September 01, 2021 with ischemic cardiomyopathy Also has a history of LV thrombus, TIA Underwent Lexiscan sestamibi study Stress protocol: Resting EKG demonstrates. Normal sinus rhythm. With age indeterminant old anterior AZ 0.4 mg of regadenoson was infused per usual protocol followed by rapid intravenous saline flush injection continuous EKG monitoring was performed. The maximum heart rate attained was 81 bpm which was 52% of maximum predicted heart . Stress EKG showed[, no significant change from the resting EKG, evidence of anterior AZ old. With maximum heart rate of 81 bpm. Arrhythmia: No arrhythmia demonstrated Symptoms: Patient had no symptoms of chest pain Blood pressure at rest: 160/78 mmHg blood pressure at the end of stress: 160/78 mmHg Myocardial perfusion protocol. 11.9 mCi ]of Technetium 99m Sestamibi was injected at rest. [ 0.4 mg ]of Regadenoson was infused per usual protocol peak infusion 34.7 mCi ]of Technetium 99m sestamibi was injected. Stress images were obtained stress and rest images were reconstructed and compared in the short axis vertical and horizontal long axis. Gated images were also obtained Perfusion SPECT analysis: Review of the images demonstrate reduced uptake of sestamibi at rest and during maximal stress with the Lexiscan infusion Mainly in the anterior and apical portion of the myocardium consistent with previous scar. Previous MRI With no evidence of reversible myocardial ischemia. Delayed Gated SPECT analysis: The gated ejection fraction is 36% LV wall motion showed anteroapical akinesia Conclusion: Abnormal Lexiscan sestamibi myocardial fusion study With evidence of a fixed anteroapical defect Consistent with previous [place] No reversible myocardial ischemia Reduced LV systolic function with ejection fraction in the range of 36% Ken Banda MD,FACC,[facility]
== END | disposition home or self-care (01) ==
PROVIDERS: PCP Internal Medicine; Referring Provider Nurse Practitioner Gerontology; Visit Provider Nurse Practitioner Gerontology
DX: R07.9 Chest pain, unspecified (principal); I25.10 Atherosclerotic heart disease of native coronary artery without angina pectoris
CPT/HCPCS: 78452; 93017; 93306; A9500; Q9957; A4216; C8929; J2785

== ENCOUNTER 2023-07-28 10:34 | Day surgery (SDC) | payer MEDICARE, MEDICAID, SELFPAY ==
--- NOTE | 2023-07-27 | IMM_PTH ---
PATIENT: ECHO KERNS LOC: EN U#:[id number] AGE/SX: 67/F ROOM: RE07/28/[address]: Dr. Rakesh Martinez DO : 1955 BED: DIS: 07/28/2023 SPEC #: [id number] RECD: 07/29/23 14:12 STATUS: ERIC RE[place] #: [id number] RADHIKA: 07/27/23 00:[address]: Rakesh Martinez DEPT: IMMUNOHISTOCHEMISTRY RECD BY: Sneha Malhotra ENTERED: 07/29/23 14:12 SP TYPE: IMMUNO OTHR DR: Yee Mccray, OPERATIONAL RISK CONSULTANT-C Tissues: Esophagus, NOS Procedures: P53 (initial) KI-67 (add) MOC-31 (add) PHYSICIAN & INSTITUTION [place] [id number] SPECIMEN INFORMATION: Tissue Source: Distal esophagus Clinical Info: Dysphagia, abnormal MRCP Specimen Number: [id number] CPT code: 27077, 54199 x2 METHODOLOGY: Deparaffinized sections of prefer/formalin-fixed tissue or PAP/DQ stained slides are incubated with monoclonal/polyclonal antibodies/oligonucleotide probes. Localization is made via biotin free immunoperoxidase method. Appropriate controls are performed and reacted as expected. Results on target cell population are indicated in the following table: RESULTS: ANTIBODY / CLONE RESULT P53 (DO-7) positive, indeterminate type pattern Ki-67 (30-9) negative MOC-31 (4561) positive These tests were developed and their performance characteristics determined by [facility]. They may not have been cleared or approved by the U.S. Food and Drug Administration. The FDA has determined that such clearance or approval is not necessary. The above immunohistochemical/dualISH markers are ordered and reviewed by the Pathologist. INTERPRETATION: Distal esophagus, biopsy: No evidence of dysplasia. AM:indra 07/31/2023
--- NOTE | 2023-07-27 12:00 | EGD_PTH ---
[id number] LOC: EN U#:[id number] AGE/SX: 67/F ROOM: RE07/28/[address]: Dr. Rakesh Martinez DO : 1955 BED: DIS: 07/28/2023 SPEC #: [id number] RECD: 07/28/23 13:42 STATUS: ERIC JEFFERY #: [id number] RADHIKA: 07/27/23 12:[address]: Rakesh Martinez DEPT: SURGICAL PATHOLOGY RECD BY: Nohemi Vail ENTERED: 07/28/23 13:42 SP TYPE: EGD BIOPSY OT DR: Yee Mccray, UX SPECIALIST-C Tissues: Esophageal mucous membrane Procedures: Special Stain Group II Surgery Specimen Level IV Alcian Blue/PAS (control) HEADER OPERATION: ERCP, sphincterotomy, 9-12 balloon, CBC stent placement PRE-OP DIAGNOSIS: Dysphagia, abnormal MRCP TISSUE SUBMITTED: Distal esophagus biopsy MICROSCOPIC DIAGNOSIS Distal esophagus, biopsy: Gastroesophageal junctional mucosa with mild chronic inflammation. 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 No evidence of dysplasia. See comment. AM:indra 07/29/2023 COMMENT Immunohistochemistry ([id number]) for P53 and Ki-67 will be performed and results will be reported separately. Alcian blue/PAS stain with matched control supports the above diagnosis. MICROSCOPIC DESCRIPTION Slides are reviewed. GROSS DESCRIPTION Received in fixative is one container labeled with the patient's name and designated distal esophagus. The specimen consists of multiple irregular fragments of light goodson soft tissue that in aggregate measure 1.0 x 0.5 x 0.1 cm. The specimen is totally submitted in one cassette. / AM:indra 07/28/2023 TC:3 CPT: 77407, 47219
--- NOTE | 2023-07-27 12:00 | FLU_PTH ---
PATIENT: ECHO KERNS LOC: EN U#:[id number] AGE/SX: 67/F ROOM: RE07/28/[address]: Dr. Rakesh Martinez DO : 1955 BED: DIS: 07/28/2023 SPEC #: [id number] RECD: 07/28/23 13:43 STATUS: ERIC JEFFERY #: [id number] RADHIKA: 07/27/23 12:[address]: Rakesh Martinez DEPT: CYTOLOGY RECD BY: Nohemi Vail ENTERED: 07/28/23 13:44 SP TYPE: Fluid OTHR DR: Yee Mccray, LOCAL SALES ASSOCIATE-C Tissues: A - Common bile duct, NOS B - Common bile duct, NOS Procedures: Special Stain Group II Surgery Specimen Level IV Cytospin Fluid HEADER OPERATION: ERCP, sphincterotomy, 9-12 balloon, CBC stent placement PRE-OP DIAGNOSIS: Dysphagia, abnormal MRCP TISSUE SUBMITTED: A - [place] tip x3 slides, B - Common bile duct brushing DIAGNOSIS CYTOLOGY A. [place] tip material (cytospin and cell block): Rare atypical epithelial cells. B. Common bile duct brushings (smears): Rare atypical epithelial cells present. See comment. AM:indra 07/29/2023 COMMENT B. An inflammatory and/or reactive process cannot be excluded. Biopsy of the site is recommended if clinically indicated. CYTOLOGY STUDY Slides are reviewed. CYTOLOGY GROSS A - Received are three smears labeled with the patient's name and designated per the requisition as brush tip. Submitted for staining. B - Received is a metallic endoscopic cytobrush with adherent minute fragments of goodson-red tissue brush in 2 ml of clear red fluid and labeled with the patient's name and and designated per the requisition as brush. The material is dislodged from the brush and submitted for cytology preparation including cell block. / indra 07/28/2023 TC:? CPT: 44372, 88042, 12096, 31620 x2
[2023-07-28] VITALS (8 sets, daily range): BP systolic 118–162; BP diastolic 60–98; PULSE 59–73; RESP 16–18; TEMP 36.4–37.4; O2SAT 93–100; BMI 37.0
--- NOTE | 2023-07-28 11:07 | PCM.HP.BLA ---
History and Physical Date of Admission: 07/28/23 67 F who presents to the office today for an ERCP. She is not having worsening abdominal pain and has been having some elevated alkaline phosphatase. We will order an MRCP. The findings were as follows: Mild dilatation of the CBD and CHD with no obstructing stone, mass or stricture. Consider ERCP to evaluate for occult stone or mass at the ampulla. PMH COPD; anxiety; depression; HTN; HLD; osteoporosis; cardiomyopathy; CHF; PVD [facility] ED 01.13.23 with retrosternal pain/pressure. Workup without concern. Discharged with Carafate and Zofran. [facility] ED 01.14.23 with right sided abdominal pain/ache with some vaginal spotting despite total hysterectomy history. ? Biochemical CBC, CMP, lipase without pertinent abnormality. ? AST L12-ALT 15-AP H196 ? CT abd/pel intraluminal density within gallbladder; diverticulosis; stable aortic aneurysm ? US RUQ normal liver and gallbladder and pancreas. *[facility] [place] established 05.22.23 Resident at [facility] where she did receive ST services. Postprandial nausea and pain in her ribs and back with dysphagia with anything that is put into her mouth. BM occur every 2-3 days with use of laxatives with hard stools with incomplete evacuation. ROS Const Constitutional: No anorexia, fatigue, fever(s), weight change or sleep problems Eyes Eyes: No change in vision ENT ENT: No abnormal hearing, difficulty swallowing, mouth lesions, tongue swelling or throat swelling Resp Respiratory: No cough or shortness of breath Cardio Cardiology: No chest pain at rest, chest pain with exertion, shortness of breath or dyspnea on exertion Gastro GI: No difficulty swallowing Genitourinary-Female: No difficulty urinating or burning urination Musc Musculoskeletal: No joint pain, joint swelling, muscle weakness or decreased muscle mass Skin Skin: No hair loss in leg, yellowing of the eye, itchy eyes, rash, skin ulcer or skin swelling Neuro Neurology: No abnormal hearing, abnormal movements, confusion, unsteady gait/balance or memory loss Psych Psychiatric: No anxiety, No confusion and No memory loss Endo Endocrine: No fatigue or weight change Aller/Imm Allergy/Immunologic: No itchy eyes, throat swelling or tongue swelling Pranav/Lymp Hematologic/Lymphatic: No easy bleeding, easy bruising or enlarged lymph nodes Exam Const General: cooperative and comfortable Nutritional Appearance: average body habitus and well nourished [facility] Head: normal to inspection Ears: hearing grossly normal bilaterally Nose: external nose normal Face and sinus: normal facial exam Mouth: oral mucosae normal Throat: posterior oropharynx normal Eyes General: appearance normal, both eyes and all related structures Neck Neck: normal visual inspection Chest Chest palpation & inspection: normal inspection of the chest and normal palpation of entire chest wall Resp Effort & Inspection: normal respiratory effort Auscultation: Bilateral: Clear to Auscultation Cardio Palpation: normal PMI Rate: regular rate Rhythm: regular rhythm GI Inspection: normal to inspection Auscultation: normal bowel sounds Percussion: normal to percussion Palpation: no hepatosplenomegaly Skin General: no rashes or lesions noted Neuro General: patient alert Extrem General: normal to inspection Psych Affect: normal affect Quality Reporting Tobacco Screening ([facility]) Smoking Status: Current some day smoker Assessment and Plan Assessment and Plan (1) Dysphagia: Status: Chronic Plan: Patient presents for chronic pains and symptoms that have been going on for 6-12 months and anxiety, saying that she is out of her Ativan, she thinks that is contributing to all of her symptoms, and her daughter also states that she is here looking for the possibility of placement to long term facility. This is a complex case. The patient is experiencing pain when she swallows. The pain is in her left shoulder and her upper abdomen. She states whenever she swallows liquids or food she has pain immediately. This past night, she states she was up all night sick after having the pain. There is not a delay with the onset of pain after eating but she does have some pain in her right upper quadrant and they are both concerned that she may have gallstones because they were told that at some point in the past. She states she has been generally weak for about 3 weeks and trouble getting around her house/apartment because of feeling very weak and sweating but no other exertional specific symptoms. She also complains of esophageal dysphagia. The differential diagnosis for abdominal pain esophageal dysphagia does include IBS, esophageal spasm, esophageal dysmotility disorder, H. pylori associated gastritis. She will undergo an upper endoscopy with possible dilation of the upper esophagus. She will also need an MRCP because she had a ultrasound that showed a dilated common bile duct up to 7 mm in the setting of normal liver enzymes. Differential diagnosis could be ampullary lesion, distal biliary stricture, choledochal cyst, micro choledocholithiasis. She will undergo ERCP because of abnormal MRCP. She is okay with this plan. I have examined the patient and the H&P has been reviewed. There are no clinical changes since date of exam.
[2023-07-28] MEDS: Lactated Ringers 1,000 ML 15 ML IV ×2 (11:20→12:05)
--- NOTE | 2023-07-28 11:40 | RAD_ITS ---
EXAM: FL ERCP Biliary and Pancreatic Ductal Systems HISTORY: PAIN COMPARISON: MR gallbladder from 06/25/2023 Technique: Scope placed by with fluoroscopy provided by Brii Burnham. There was 29.6 seconds of fluoroscopy. Radiation dose of 11.84 mGy, , and 10 C-arm images obtained FINDINGS: The endoscope was placed into the duodenum and the ampulla of Vater canalized. Contrast was injected in a retrograde manner. As noted on the MRI, there is extensive dilatation of the biliary tree both intra and extrahepatically. There is no demonstrated filling defect to suspect a retained stone there is no demonstrated stricture, there is abrupt cut off of the distal common bile duct approximately 2 cm before the ampulla. This portion of the distal common bile duct was dilated with balloon and a stent was left in place. RAD/ERCP Biliary/Pancreas IMPRESSION: There was balloon dilatation of the distal common bile duct and placement of a stent to reduce the abnormally dilated biliary tree. No complications or extravasation of contrast noted. Electronically Signed: Bentley Khan MD at 8:11 EST ,
--- NOTE | 2023-07-28 12:56 | OP.ERCP_ITS ---
Patient Name: Marcia Mascorro Procedure Date: 07/28/2023 10:57 AM Date of : 1955 Age: 67 Procedure: ERCP Indications: Common bile duct stricture Providers: Rakesh Martinez DO Medicines: Monitored Anesthesia Care Patient Profile: This is a 67 year old female. Refer to note in patient chart for documentation of history and physical. Patient has symptoms of acute right upper quadrant abdominal pain, acute dyspepsia and acute nausea. She is status post laparoscopic cholecystectomy. Previously obtained MRI showed a stricture in the biliary tree and a dilation in the biliary tree. Complications: No immediate complications. Procedure: Pre-Anesthesia Assessment: - Prior to the procedure, a History and Physical was performed, and patient medications and allergies were reviewed. The patient is competent. The risks and benefits of the procedure and the sedation options and risks were discussed with the patient. All questions were answered and informed consent was obtained. Patient identification and proposed procedure were verified by the physician in the pre-procedure area. Mental Status Examination: alert and oriented. Airway Examination: normal oropharyngeal airway and neck mobility. Respiratory Examination: clear to auscultation. CV Examination: normal. Prophylactic Antibiotics: The patient does not require prophylactic antibiotics. Prior Anticoagulants: The patient has taken no anticoagulant or antiplatelet agents. ASA Grade Assessment: II - A patient with mild systemic disease. After reviewing the risks and benefits, the patient was deemed in satisfactory condition to undergo the procedure. The anesthesia plan was to use general anesthesia. Immediately prior to administration of medications, the patient was re-assessed for adequacy to receive sedatives. The heart rate, respiratory rate, oxygen saturations, blood pressure, adequacy of pulmonary ventilation, and response to care were monitored throughout the procedure. The physical status of the patient was re-assessed after the procedure. After obtaining informed consent, the scope was passed under direct vision. Throughout the procedure, the patient's blood pressure, pulse, and oxygen saturations were monitored continuously. The Duodenoscope was introduced through the mouth, and advanced to the duodenum and used to inject contrast into the bile duct. The ERCP was accomplished without difficulty. The patient tolerated the procedure well. Scope In: 11:49:26 AM Scope Out: 12:39:09 PM Total Procedure Duration Time 0 hours 49 minutes 43 seconds Findings: The user experience manager film was normal. The esophagus was successfully intubated under direct vision. The scope was advanced to a normal major papilla in the descending duodenum without detailed examination of the pharynx, larynx and associated structures, and upper GI tract. The upper GI tract was grossly normal. The bile duct was deeply cannulated with the short-nosed traction sphincterotome. Contrast was injected. I personally interpreted the bile duct images. There was brisk flow of contrast through the ducts. Image quality was excellent. Contrast extended to the entire biliary tree. Opacification of the entire biliary tree except for the cystic duct and gallbladder was successful. The maximum diameter of the ducts was 10 mm. The lower third of the main bile duct contained a single localized stenosis 3 mm in length. Placement of a 0.035 inch x 260 cm angled Hydra Jagwire into the biliary tree was attempted. This passed successfully. A 5 mm biliary sphincterotomy was made with a traction (standard) sphincterotome using ERBE electrocautery. There was no post-sphincterotomy bleeding. The biliary tree was swept with a 15 mm balloon starting at the bifurcation. Sludge was swept from the duct. All stones were removed. Dilation of the lower third of the main bile duct with 5-7-8.5 Fr catheter dilator was successful. Cells for cytology were obtained by brushing in the lower third of the main bile duct. One 10 Fr by 5 cm temporary stent was placed 5 cm into the common bile duct. Bile flowed through the stent. The stent was in good position. Biopsy was performed in the lower third of the esophagus through the esophagogastroduodenoscope with a cold forceps for histology. A standard esophagogastroduodenoscopy scope was used for the examination of the upper gastrointestinal tract. The scope was passed under direct vision through the upper GI tract. There were esophageal mucosal changes consistent with long-segment Sanchez's esophagus present in the lower third of the esophagus. The maximum longitudinal extent of these mucosal changes was 3 cm in length. Patchy mildly erythematous mucosa without bleeding was found in the cardia. A benign-appearing, intrinsic moderate stenosis was found at the pylorus. This was traversed. A TTS dilator was passed through the scope. Dilation with a 15 mm pyloric balloon dilator was performed at the pylorus. Impression: - A single localized biliary stricture was found in the lower third of the main bile duct. The stricture was indeterminate. - Choledocholithiasis was found. Complete removal was accomplished by biliary sphincterotomy and balloon extraction. - A biliary sphincterotomy was performed. - The biliary tree was swept. - The lower third of the main bile duct was successfully dilated. - Cells for cytology obtained in the lower third of the main duct. - One temporary stent was placed into the common bile duct. Procedure Code(s): --- Professional --- 96863, Endoscopic retrograde cholangiopancreatography (ERCP); with placement of endoscopic stent into biliary or pancreatic duct, including pre- and post-dilation and guide wire passage, when performed, including sphincterotomy, when performed, each stent 24325, 51, Endoscopic retrograde cholangiopancreatography (ERCP); with removal of calculi/debris from biliary/pancreatic duct(s) 02282, Esophagogastroduodenoscopy, flexible, transoral; with dilation of gastric/duodenal stricture(s) (eg, balloon, bougie) 74861, 59, Esophagogastroduodenoscopy, flexible, transoral; with biopsy, single or multiple 08280, 26, Endoscopic catheterization of the biliary ductal system, radiological supervision and interpretation CPT copyright 2021 [employer]. All rights reserved. The codes documented in this report are preliminary and upon form designer review may be revised to meet current compliance requirements. Rakesh Martinez DO 07/28/2023 12:55:39 PM This report has been signed electronically. Number of Addenda: 0 Note Initiated On: 07/28/2023 10:57 AM
--- NOTE | 2023-07-28 12:56 | OP.CCLET_ITS ---
07/28/2023 Yee Mccray Np, Sammie Re : ERCP procedure for Marcia Mascorro Dear Mahendra This procedure was performed on Friday, July 28, 2023. My impressions and recommendations are as follows: Impressions : - A single localized biliary stricture was found in the lower third of the main bile duct. The stricture was indeterminate. - Choledocholithiasis was found. Complete removal was accomplished by biliary sphincterotomy and balloon extraction. - A biliary sphincterotomy was performed. - The biliary tree was swept. - The lower third of the main bile duct was successfully dilated. - Cells for cytology obtained in the lower third of the main duct. - One temporary stent was placed into the common bile duct. Recommendations : My findings are described in the full procedure note, which is enclosed. If I can be of further assistance, please feel free to contact me at . Sincerely, Rakesh Martinez, 07/28/2023 12:55:39 PM This report has been signed electronically.
== END 2023-07-28 14:37 | disposition home or self-care (01) ==
LOC: EN 10:38 → AC 10:39
PROVIDERS: PCP Internal Medicine; Referring Provider Internal Medicine; Visit Provider Internal Medicine Gastroenterology
PROC: (CPT 43260; principal; 2023-07-28 11:40)
PROC: 0DJ08ZZ Inspection of Upper Intestinal Tract, Via Natural or Artificial Opening Endoscopic (ICD-10-PCS; CPT 43235; 2023-07-28 11:40)
DX: K80.51 Calculus of bile duct without cholangitis or cholecystitis with obstruction (principal); J44.9 Chronic obstructive pulmonary disease, unspecified; N18.30 Chronic kidney disease, stage 3 unspecified; K83.8 Other specified diseases of biliary tract; R13.10 Dysphagia, unspecified; F17.200 Nicotine dependence, unspecified, uncomplicated; I25.10 Atherosclerotic heart disease of native coronary artery without angina pectoris; I12.9 Hypertensive chronic kidney disease with stage 1 through stage 4 chronic kidney disease, or unspecified chronic kidney disease; G47.33 Obstructive sleep apnea (adult) (pediatric); Z79.899 Other long term (current) drug therapy; Z79.01 Long term (current) use of anticoagulants; Z86.718 Personal history of other venous thrombosis and embolism
CPT/HCPCS: 43239; 43245; 43264; 43274; 74330; 76000; 81002; 88108; 88304; 88305; 88313; 88341; 88342; 93005; J7120

== ENCOUNTER 2023-07-29 16:55 | Emergency (ER) | payer MEDICARE, MEDICAID, SELFPAY ==
[2023-07-29 16:57] VITALS: BP 145/74; PULSE 89; RESP 16; TEMP 36.4; O2SAT 95; BMI 32.3
--- NOTE | 2023-07-29 17:54 | CT_ITS ---
STUDY: CT ABDOMEN AND PELVIS WITH CONTRAST REASON FOR EXAM: Female, 67 years old. Abdominal pain RADIATION DOSAGE (If Supplied By Facility): CTDIvol = ( 13.37 ) mGy, DLP = ( 1217.68 ) mGycm TECHNIQUE: Transaxial images were obtained from the dome of the diaphragm to the symphysis pubis without oral contrast. IV 100mL Isovue-[id number] was administered. Sagittal and coronal images were reconstructed. Individualized dose optimization techniques were used for this CT. COMPARISON: January 14, 2023. FINDINGS: The visualized lung bases are unremarkable. The visualized portions of the heart are within normal limits. Mild pneumobilia in the liver. Distended gallbladder with a biliary stent is noted. Normal spleen. Normal pancreas. Normal bilateral adrenal glands. Normal right kidney. Probable nonobstructive calculi in the left kidney. Small hiatal hernia. Normal small intestine. Diverticulosis of the colon. The appendix is not visualized. Calcified abdominal aorta with mild intraluminal thrombus. There is a mild 3.4 cm infrarenal abdominal aortic aneurysm. A small aneurysm is noted at the suprarenal segment measuring 2.8 cm in diameter. Normal inferior vena cava. Normal retroperitoneum. Normal urinary bladder. Small fatty umbilical hernia. Normal osseous structures. CT/Abdomen/Pelvis W IV Cont ONLY IMPRESSION: Biliary stent in place with mild pneumobilia. Small hiatal hernia. Colonic diverticulosis. Nonobstructing left renal calculi. Aneurysms of the abdominal aorta as noted. Small fatty umbilical hernia Electronically Signed: Denis Baird DO at 19:38 EST ,
--- NOTE | 2023-07-29 17:56 | EDS_ITS ---
HPI HPI - GI History of Present Illness Chief Complaint: Abd Pain Detail of Chief Complaint: Abdominal pain Informant: patient Narrative Narrative: Patient presents to the emergency department with complaint of upper abdomen pain that started around 8 PM last night. Patient states that she had a procedure yesterday with Dr. Martinez adobe layer who placed a stent in her common bile duct. Patient had severe pain throughout the night. She has had nausea. She has felt hot. Patient currently at the [facility]. She presents via EMS. EMS did give patient Dilaudid for pain. She denies any chest pain or shortness of breath. Patient denies dysuria or urgency or frequency. [facility] Medical History (Updated 07/29/23 @ 21:[address] Keisha Williamson, DO) Anxiety and depression Arthritis Atherosclerotic heart disease of [place] coronary artery without angina pectoris Back pain Bullous emphysema Calculus of left kidney Cardiology follow-up encounter Chest pain Chronic cough COPD (chronic obstructive pulmonary disease) COPD with asthma Depression Difficulty chewing DVT (deep venous thrombosis) Easy bruising Elevated troponin Esophagitis, unspecified without bleeding Essential hypertension Excessive bleeding Gastric reflux GERD (gastroesophageal reflux disease) High cholesterol History of CHF (congestive heart failure) History of echocardiogram History of edema History of irregular heartbeat History of non-ST elevation myocardial infarction (NSTEMI) (09/01/21) History of pain when walking History of renal disease History of stress test History of ulceration Hoarseness Hyperlipidemia Injury of back Ischemic cardiomyopathy Kidney stones Leg cramps Myocardial infarct Obesity (BMI 30.0-34.9) Old anterior wall myocardial infarction Opiate dependence EVELYN (obstructive sleep apnea) Osteoporosis Other chronic pain Personal history of transient ischemic attack (TIA), and cerebral infarction without residual deficits Post-menopausal Shortness of breath on exertion Smoker Sustained SVT TIA (transient ischemic attack) Tobacco abuse Unspecified combined 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 Wears glasses Home Medications atorvastatin 40 mg tablet (Lipitor) 40 mg PO QHS 30 days #30 tabs 01/04/23 [Rx Last Taken Unknown] clopidogrel 75 mg tablet (Plavix) 75 mg PO DAILY 30 days #30 tabs 01/04/23 [Rx Last Taken 06/20/23] duloxetine 30 mg capsule,delayed release (Cymbalta) 30 mg PO DAILY #30 caps 01/04/23 [Rx Last Taken Unknown] lisinopril 2.5 mg tablet 2.5 mg PO DAILY 30 days #30 tabs 01/04/23 [Rx Last Taken 06/24/23] ondansetron 4 mg disintegrating tablet 4 mg PO Q8H PRN PRN Nausea #12 tabs 01/13/23 [Rx Last Taken Unknown] albuterol sulfate 90 mcg/actuation aerosol inhaler 2 puff inhalation Q6H PRN shortness of breath or wheezing #8.5 grams 02/17/23 [Rx Last Taken Unknown] budesonide-formoterol HFA 160 mcg-4.5 mcg/actuation aerosol inhaler (Symbicort) 1 puff inhalation BID #10.2 grams 02/17/23 [Rx Last Taken Unknown] inhalational spacing device (Aerochamber MV spacer) #1 ea 02/17/23 [Rx Last Taken Unknown] tiotropium bromide 2.5 mcg/actuation mist for inhalation (Spiriva Respimat) 2 puff inhalation DAILY #4 grams 02/17/23 [Rx Last Taken Unknown] pantoprazole 40 mg tablet,delayed release 40 mg PO Q12H #60 tabs 06/24/23 [Rx Last Taken Unknown] lorazepam 1 mg tablet (Ativan) 1 mg PO BID PRN anxiety 07/16/23 [History Last Taken Unknown] amiodarone 200 mg tablet 200 mg PO DAILY 07/22/23 [History Last Taken Unknown] tramadol 50 mg tablet 50 mg PO Q8H PRN pain #30 tabs 07/28/23 [Rx Last Taken Unknown] carvedilol 6.25 mg tablet 6.25 mg PO Q12H 07/29/23 [History Last Taken Unknown] furosemide 20 mg tablet 20 mg PO Q12H 07/29/23 [History Last Taken Unknown] gabapentin 400 mg capsule 400 mg PO Q8H 07/29/23 [History Last Taken Unknown] lansoprazole 30 mg capsule,delayed release 30 mg PO Q12H 07/29/23 [History Last Taken Unknown] nicotine (polacrilex) 4 mg gum 4 mg buccal Q6H PRN nicotine cravings 07/29/23 [History Last Taken Unknown] nicotine 10 mg inhalation cartridge (Nicotrol) 1 inh inhalation Q6H PRN nicotine cravings 07/29/23 [History Last Taken Unknown] nitroglycerin 0.4 mg sublingual tablet 0.4 mg buccal Q5M PRN chest pain 07/29/23 [History Last Taken Unknown] ondansetron 4 mg disintegrating tablet 4 mg PO Q8H PRN PRN Nausea #10 tabs 07/29/23 [Rx Last Taken Unknown] oxycodone myristate 9 mg capsule sprinkle extended release 12 hr(DON'T CRUSH) (Xtampza ER) 9 mg PO Q12H 07/29/23 [History Last Taken Unknown] oxycodone-acetaminophen 5 mg-325 mg tablet (Percocet) 1 tab PO Q8H PRN pain 2 days #10 tabs 07/29/23 [Rx Last Taken Unknown] sucralfate 1 gram tablet 1 g PO Q8H 07/29/23 [History Last Taken Unknown] Allergy/AdvReac Type Severity Reaction Status Date / Time No Known Allergies Allergy Verified 07/28/23 10:55 Family History (Reviewed 07/16/23 @ 13:10 by Marsha Alonso APPLICATION INFRASTRUCTURE ENGINEER, APPLICATION INFRASTRUCTURE ENGINEER-C) Mother Hypertension CAD (coronary artery disease) CVA (cerebral vascular accident) Myocardial infarction Grandmother Myocardial infarction Surgical History History of cardiac catheterization History of hysterectomy History of left heart catheterization (01/20/22) History of total hysterectomy Hx of appendectomy Hx of esophagogastroduodenoscopy Social History (Reviewed 07/16/23 @ 13:10 by Marsha Alonso APPLICATION INFRASTRUCTURE ENGINEER, APPLICATION INFRASTRUCTURE ENGINEER-C) household members: none Smoking Status: Current some day smoker tobacco type: cigarettes alcohol intake: never substance use type: does not use ROS ROS ED Review of Systems ROS Unobtainable: other Constitutional Constitutional ED: Reports lethargy; Denies chills, fever(s), sweats or weight loss Eyes Eyes: Denies blurry vision, change in vision or diplopia ENT ENT ED: Denies rhinorrhea or sore throat Cardiovascular Cardiovascular: Denies chest pain, orthopnea or racing heartbeat Respiratory/Chest Respiratory/Chest: Denies cough, dyspnea, dyspnea on exertion, orthopnea or sputum Gastrointestinal Gastrointestinal: Reports abdominal pain and nausea; Denies diarrhea or vomiting Genitourinary Genitourinary ED: Denies dysuria, hematuria or urinary frequency Musculoskeletal Musculoskeletal: Denies arthralgias, back pain, myalgias or neck pain Integumentary Denies abscess, Abrasions or rash Neurologic Neurologic: Denies headache(s) or weakness Psychiatric Psychiatric: Denies anxiety, depression or suicidal thoughts Endocrine Endocrinology: Denies polydipsia, polyphagia or polyuria Hematologic/Lymphatic Hematologic/Lymphatic: Denies easy bleeding, easy bruising or lymphadenopathy Allergic/Immunologic Allergic/Immunologic ED: Denies mouth swelling, tongue swelling or urticaria EXAM Physical Exam Const Vital Signs: 07/29/23 16:57 07/29/23 18:56 07/29/23 20:00 Temperature 97.6 F L Temperature Source Temporal Pulse Rate 89 81 86 Respiratory Rate 16 16 16 Blood Pressure 145/74 H 166/83 H 178/98 H Blood Pressure Mean 97 110 124 Pulse Ox 95 99 97 Oxygen Delivery Method Room Air Positive well nourished and well developed General Appearance ED: well developed and NAD HEENT Reports TM's clear and moist mucous membranes normocephalic and atraumatic; Negative for trauma or tenderness Tympanic Membrane ED: Yes TM's clear Eyes PERRL and EOMs intact bilaterally General Eye ED: Negative for pale conjunctiva or scleral icterus Neck no lymphadenopathy, supple and no JVD General: Negative for tenderness Chest Wall inspection of chest normal and palpation of chest normal Chest: Negative for tenderness Resp normal respiratory effort and clear to auscultation bilaterally Effort and Inspection: Negative for respiratory distress or pain with movement Auscultation: Negative for rhonchi, wheezes or diminished lung sounds Cardio regular rate, regular rhythm, S1 normal heart sound, S2 normal heart sound and no murmurs Peripheral Pulses: pulses 2+ throughout GI normal to inspection, nondistended, normoactive bowel sounds, soft to palpation, non-distended and no masses GI Narrative: Tenderness to palpation over the epigastric region and right upper quadrant with guarding. There is no rebound, rigidity, or peritoneal signs. No masses palpated. Back/Spine no CVA tenderness and no thoracic nor lumbar tenderness Extremity normal to inspection General Extremety ED: Negative for edema General Extremity: Negative for edema Neuro oriented x3, CN's II-XII intact bilaterally, no sensory deficits noted and gait normal Sensorium / Orientation: awake, alert, oriented to person, oriented to place and oriented to time Motor Exam: strength 5/5 throughout and strength abnormal Psych mental status grossly normal Skin no rashes or lesions noted and no wounds MDM MDM MDM Narrative Medical decision making narrative: Patient presents with severe upper abdomen pain after having stent placed in her common bile duct yesterday. IV line established. Patient will have basic labs ordered and we will obtain a CT scan with IV contrast to evaluate further. In the differential would be pancreatitis versus other complication related to stenting of common bile duct. CBC with differential obtained showed a slightly elevated white count of 16.2 with hemoglobin 13 and platelet count of 242. Chemistries unremarkable. LFTs were normal. Lipase normal. Urinalysis was normal. CT scan of the abdomen pelvis with IV contrast showed common bile duct that in good position. Patient had mild pneumobilia. Patient chronically has elevated WBC count. Clinically she looks well. I discussed case with Dr. Martinez who is comfortable with patient discharge. Advised to keep her appointment with him. She will be given a prescription for few Percocet for pain. Advised to return if worsening pain, fever, vomiting, or condition should worsen anyway. Lab Data Attestation: I reviewed the patient's lab results. Labs: Laboratory Results - last 24 hr 07/29/23 07/29/23 18:12 18:55 WBC 16.2 H RBC 4.17 L Hgb 13.2 Hct 40.0 MCV 95.9 MCH 31.7 MCHC 33.0 RDW Std Deviation 44.6 H RDW Coeff of Sariah 12.8 Plt Count 242 MPV 9.1 Immature Gran % (Auto) 0.500 Neut % (Auto) 82.5 H Lymph % (Auto) 9.0 L [place] % (Auto) 7.7 Eos % (Auto) 0.1 Baso % (Auto) 0.2 Absolute Neuts (auto) 13.4 H Absolute Lymphs (auto) 1.46 Nucleated RBC % 0 Sodium 137 Potassium 3.8 Chloride 106 Carbon Dioxide 28.0 Anion Gap 3 L BUN 17 Creatinine 0.91 Estim Creat Clear Calc 56.93 Est GFR (MDRD) Af Amer 79 Est GFR (MDRD) Non-Af 65 BUN/Creatinine Ratio 18.6 Glucose 131 H Calcium 8.8 Total Bilirubin 0.50 AST 16 ALT 21 Alkaline Phosphatase 123 H Troponin I High Sens 30 Total Protein 6.8 Albumin 3.1 L Globulin 3.7 Albumin/Globulin Ratio 0.8 L Lipase 33 Urine Color Yellow Urine Clarity Clear Urine pH 5.0 Ur Specific [place] 1.025 Urine Protein 15 H Urine Glucose (UA) Normal Urine Ketones Negative Urine Occult Blood 10 H Urine Nitrite Negative Urine Bilirubin Negative Urine Urobilinogen Normal Ur Leukocyte Esterase Negative Urine RBC 0 SEEN Urine WBC 0 SEEN Ur Squamous Epith Cells 0 SEEN Urine Bacteria RARE Urine Mucus 0 SEEN Radiography Diagnostic Testing: Clinical Impression(s) from Imaging Studies Abdomen/Pelvis CT 07/29/23 17:54 IMPRESSION: Biliary stent in place with mild pneumobilia. Small hiatal hernia. Colonic diverticulosis. Nonobstructing left renal calculi. Aneurysms of the abdominal aorta as noted. Small fatty umbilical hernia Electronically Signed: Denis Baird DO at 19:38 EST Reading Location ID and State: [facility] / [place] Tel [phone], Service support , EKG Initial EKG: Attestation: I personally reviewed and interpreted this EKG as follows: Comments: Sinus rhythm with rate of 85 bpm with occasional PVCs Discharge Plan Triage Chief Complaint: Abd Pain ED Provider: Keisha Williamson Dx/Rx/DC Orders Clinical Impression: Abdominal pain Instructions: ED Abdominal Pain Unkn Cause Fem Prescriptions: New oxycodone-acetaminophen [Percocet] 5-325 mg tablet 1 tab PO Q8H PRN (Reason: pain) 2 Days Qty: 10 0RF ondansetron [ondansetron] 4 mg tablet,disintegrating 4 mg PO Q8H PRN PRN (Reason: Nausea) Qty: 10 0RF No Action budesonide-formoterol [Symbicort] 160-4.5 mcg/actuation HFA aerosol inhaler 1 puff inhalation BID Qty: 10.2 11RF Spiriva Respimat 2.5 mcg/actuation mist 2 puff inhalation DAILY Qty: 4 11RF albuterol sulfate 90 mcg/actuation HFA aerosol inhaler 2 puff inhalation Q6H MDD 10 puffs PRN (Reason: shortness of breath or wheezing) Qty: 8.5 6RF Rx Instructions: This inhaler must be used with a spacer device. (DME) Aerochamber MV Spacer See Rx Instructions .ROUTE .MEDSUPPLY Qty: 1 0RF Rx Instructions: As directed lorazepam [Ativan] 1 mg tablet 1 mg PO BID PRN (Reason: anxiety) duloxetine [Cymbalta] 30 mg capsule,delayed release(DR/EC) 30 mg PO DAILY Qty: 30 0RF atorvastatin [Lipitor] 40 mg tablet 40 mg PO QHS 30 Days Qty: 30 0RF clopidogrel [Plavix] 75 mg tablet 75 mg PO DAILY 30 Days Qty: 30 0RF lisinopril 2.5 mg tablet 2.5 mg PO DAILY 30 Days Qty: 30 0RF ondansetron 4 mg tablet,disintegrating 4 mg PO Q8H PRN PRN (Reason: Nausea) Qty: 12 0RF pantoprazole 40 mg tablet,delayed release (DR/EC) 40 mg PO Q12H Qty: 60 3RF amiodarone 200 mg tablet 200 mg PO DAILY tramadol 50 mg tablet 50 mg PO Q8H PRN (Reason: pain) Qty: 30 0RF gabapentin 400 mg capsule 400 mg PO Q8H carvedilol 6.25 mg tablet 6.25 mg PO Q12H furosemide 20 mg tablet 20 mg PO Q12H lansoprazole 30 mg capsule,delayed release(DR/EC) 30 mg PO Q12H nicotine (polacrilex) 4 mg gum 4 mg buccal Q6H PRN (Reason: nicotine cravings) Nicotrol 10 mg cartridge 1 inh INHALATION Q6H PRN (Reason: nicotine cravings) nitroglycerin 0.4 mg tablet, sublingual 0.4 mg buccal Q5M PRN (Reason: chest pain) Xtampza ER 9 mg cap,sprinkl,ER12hr(DONT CRUSH) 9 mg PO Q12H sucralfate 1 gram tablet 1 g PO Q8H Primary Care Provider: Yee Mccray NP Referrals: Yee Mccray NP, APPLICATION INFRASTRUCTURE ENGINEER-C [Primary Care Provider] - Activity Restrictions/Additional Instructions: Keep your appointment with Dr. Martinez Disposition Disposition: Home, Self Care Discharge Date/Time: 07/29/23 21:22
[2023-07-29 18:25] LABS: Absolute Lymphocyte Count 1.46 X10^3/uL (0.83-4.51); Absolute Neutrophil Count 13.4 X10^3/uL (2.0-7.7); Basophil# 0.03 X10^3/uL; Basophil% 0.2 % (0-1); Eosinophil# 0.01 X10^3/uL; Eosinophils% 0.1 % (0-5); Hemoglobin 13.2 g/dL (12.0-15.0); Lymphocyte # 1.46 X10^3/ul (0.83-4.51); Mean Corpuscular Hgb 31.7 pg (27.0-32.0); Mean Corpuscular Volume 95.9 fL (81-99); Mean Platelet Vol. 9.1 fl (6.2-12.0); Monocyte# 1.24 X10^3/uL; Monocyte% 7.7 % (0-10); NRBC Flagged by Analyzer 0 % (0-5); Neutrophil # 13.36 X10^3/uL (2.7-7.7); Neutrophil % 82.5 % (47-70); Platelet Count 242 K/mm3 (150-450); RBC Distribution Width CV 12.8 % (11.6-14.6); RBC Distribution Width SD 44.6 fl (35.1-43.9); Red Blood Count 4.17 M/mm3 (4.2-5.4); White Blood Count 16.2 K/mm3 (4.4-11.0)
[2023-07-29 18:46] LABS: ALB/GLOB Ratio 0.8 RATIO (0.9-2.4); AST(SGOT) 16 U/L (15-37); Alanine Aminotransfer ALT/SGPT 21 U/L (13-56); Albumin, Serum 3.1 g/dL (3.2-5.0); Alkaline Phosphatase 123 U/L (45-117); Anion Gap 3 (5-15); BUN 17 mg/dL (7-18); BUN/Creat Ratio 18.6 RATIO (10-20); Calcium,Total 8.8 mg/dL (8.5-10.1); Chloride 106 mmol/L (98-107); Creatinine, Serum 0.91 mg/dL (0.55-1.02); EST Glomerular Filtration Rate 65 mL/min (>60); Est Glom Filt Rate - Afr Amer 79 mL/min (>60); Estimated Creatinine Clearance 56.93 ml/min; Globulin 3.7 g/dL (2.2-4.2); Glucose 131 mg/dL (74-106); Lipase 33 U/L (13-75); Potassium 3.8 mmol/L (3.5-5.1); Protein, Total 6.8 g/dL (6.4-8.2); Sodium Level 137 mmol/L (136-145); Troponin-I HS 30 pg/mL (3.0-54.0)
[2023-07-29 18:56] VITALS: BP 166/83; PULSE 81; RESP 16; O2SAT 99
[2023-07-29 19:01] LABS: Mucous, Urine 0 SEEN /hpf (<or=2+); Red Blood Cells-Urine 0 SEEN /hpf (0-5); Squamous Epithelial Cells - UA 0 SEEN /hpf (5-10); White Blood Cells 0 SEEN /hpf (0-5)
[2023-07-29 19:02] LABS: Color, Urine Yellow (Yellow); Glucose, Dipstick Normal (Normal); Ketone-Dipstick Negative (Negative); Leukocyte Esterase-Dipstick Negative /ul (Negative); Nitrite-Dipstick Negative (Negative); Occult Blood-Urine 10 /ul (Negative); Protein-Dipstick 15 mg/dl (Negative); Specific Gravity, Urine 1.025 (1.002-1.030); Urine Bilirubin Dipstick Negative (Negative); Urine Clarity Clear (Clear); Urine Urobilinogen Normal (Normal)
[2023-07-29 19:11] LABS: Bacteria RARE /hpf (None Seen)
[2023-07-29 20:00] VITALS: BP 178/98; PULSE 86; RESP 16; O2SAT 97
== END 2023-07-29 21:22 | disposition home or self-care (01) ==
LOC: ED 18:00
PROVIDERS: Emergency Provider Emergency Medicine; PCP Internal Medicine; Visit Provider Emergency Medicine
DX: R10.10 Upper abdominal pain, unspecified (principal); I11.0 Hypertensive heart disease with heart failure; I50.42 Chronic combined systolic (congestive) and diastolic (congestive) heart failure; I25.10 Atherosclerotic heart disease of native coronary artery without angina pectoris; E78.00 Pure hypercholesterolemia, unspecified; I25.5 Ischemic cardiomyopathy; I25.2 Old myocardial infarction; G47.33 Obstructive sleep apnea (adult) (pediatric); F17.210 Nicotine dependence, cigarettes, uncomplicated; K21.9 Gastro-esophageal reflux disease without esophagitis; Z79.01 Long term (current) use of anticoagulants; Z79.899 Other long term (current) drug therapy; Z86.718 Personal history of other venous thrombosis and embolism; Z86.73 Personal history of transient ischemic attack (TIA), and cerebral infarction without residual deficits
CPT/HCPCS: 74177; 80053; 81001; 83690; 84484; 85025; 93005; 99285; J7030; Q9967; A4216

== ENCOUNTER 2023-09-05 18:40 | Emergency (ER) | payer MEDICARE, MEDICAID, SELFPAY ==
[2023-09-05 18:41] VITALS: BP 194/111; PULSE 100; RESP 18; TEMP 36.9; O2SAT 94
--- NOTE | 2023-09-05 19:01 | CT_ITS ---
EXAM: CT ABDOMEN AND PELVIS WITH INTRAVENOUS CONTRAST CLINICAL INDICATION: right sided abd pain -- IV PO Contrast TECHNIQUE: Helically acquired images were obtained of the abdomen and pelvis with intravenous contrast. CTDIvol = ( 16.25 ) mGy, DLP = ( 1183.58 ) mGycm This CT exam was performed using one or more of the following dose reduction techniques: automated exposure control, adjustment of the mA and/or kV according to patient size, and/or use of iterative reconstruction technique. CONTRAST: IV 100mL [id number] COMPARISON: No relevant prior studies available. FINDINGS: LOWER THORAX: Unremarkable. Lung bases are clear. No cardiomegaly. No significant pericardial effusion. ABDOMEN: LIVER: Unremarkable. Homogeneous. No focal mass. GALLBLADDER AND BILE DUCTS: Nonspecific thickening of the gallbladder wall at the fundal aspect but no convincing evidence for acute cholecystitis. No intra- or extrahepatic biliary ductal dilation. PANCREAS: Unremarkable. No focal cystic or solid mass. SPLEEN: Unremarkable. Normal size without focal cystic or solid mass. ADRENALS: Unremarkable. No nodules. KIDNEYS AND URETERS: Small renal cysts bilaterally. Left renal scarring. No hydronephrosis. No other abnormalities. STOMACH AND BOWEL: Diverticulosis of the colon without acute diverticulitis. No colitis. No bowel obstruction. PELVIS: APPENDIX: No evidence of acute appendicitis. BLADDER: Unremarkable. REPRODUCTIVE: Unremarkable as visualized. No mass. ABDOMEN and PELVIS: INTRAPERITONEAL SPACE: Unremarkable. No ascites or other fluid collection. No free air. BONES/JOINTS: Degenerative changes of the pelvis and spine. No suspicious lytic or blastic abnormality. SOFT TISSUES: Unremarkable. No discrete abdominal or pelvic wall hernia. 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 No extension beyond the bifurcation. No adjacent fluid or inflammation. LYMPH NODES: Unremarkable. No enlarged lymph nodes. CT/Abdomen/Pelvis WITH Contrast IMPRESSION: 1. Nonspecific thickening of the gallbladder wall at the fundal aspect but no convincing evidence for acute cholecystitis. 2. Diverticulosis of the colon without acute diverticulitis. 3. 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 No extension beyond the bifurcation. 4. No acute or inflammatory disease or bowel obstruction otherwise. Electronically Signed: Ross Denton MD at 22:56 EST ,
--- NOTE | 2023-09-05 19:03 | EDS_ITS ---
HPI <Dr. Lo Chu MD - Last Filed: 09/05/23 23:01> HPI - GI History of Present Illness Chief Complaint: Abd Pain Informant: patient Narrative Narrative: Patient presents with acute on chronic abdominal pain. She has had longstanding abdominal pain. She has been following recently with Dr. Martinez. On August 25 she was seen in the office for follow-up and is able to review that note. On July 28 she had an EGD and had a common bile duct stent placed. Patient states ever since that time she has had increased pain to the right upper quadrant. The note from the states the plan is for a follow-up EGD and possible dilation of the upper esophagus and she will need another MRCP. Patient presents secondary to worsened pain since yesterday. No fever or chills. She states her abdominal pain is worsened when she eats. No vomiting or diarrhea. No urinary symptoms. [facility] <Dr. Lo Chu MD - Last Filed: 09/05/23 23:01> [facility] Medical History Anxiety and depression Arthritis Atherosclerotic heart disease of [place] coronary artery without angina pectoris Back pain Bullous emphysema Calculus of left kidney Cardiology follow-up encounter Chest pain Chronic cough COPD (chronic obstructive pulmonary disease) COPD with asthma Depression Difficulty chewing DVT (deep venous thrombosis) Easy bruising Elevated troponin Esophagitis, unspecified without bleeding Essential hypertension Excessive bleeding Gastric reflux GERD (gastroesophageal reflux disease) High cholesterol History of CHF (congestive heart failure) History of echocardiogram History of edema History of irregular heartbeat History of non-ST elevation myocardial infarction (NSTEMI) (09/01/21) History of pain when walking History of renal disease History of stress test History of ulceration Hoarseness Hyperlipidemia Injury of back Ischemic cardiomyopathy Kidney stones Leg cramps Myocardial infarct Obesity (BMI 30.0-34.9) Old anterior wall myocardial infarction Opiate dependence EVELYN (obstructive sleep apnea) Osteoporosis Other chronic pain Personal history of transient ischemic attack (TIA), and cerebral infarction without residual deficits Post-menopausal Shortness of breath on exertion Smoker Sustained SVT TIA (transient ischemic attack) Tobacco abuse Unspecified combined 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 Wears glasses Home Medications atorvastatin 40 mg tablet (Lipitor) 40 mg PO QHS 30 days #30 tabs 01/04/23 [Rx Last Taken Unknown] clopidogrel 75 mg tablet (Plavix) 75 mg PO DAILY 30 days #30 tabs 01/04/23 [Rx Last Taken 06/20/23] duloxetine 30 mg capsule,delayed release (Cymbalta) 30 mg PO DAILY #30 caps 01/04/23 [Rx Last Taken Unknown] lisinopril 2.5 mg tablet 2.5 mg PO DAILY 30 days #30 tabs 01/04/23 [Rx Last Taken 06/24/23] ondansetron 4 mg disintegrating tablet 4 mg PO Q8H PRN PRN Nausea #12 tabs 01/13/23 [Rx Last Taken Unknown] albuterol sulfate 90 mcg/actuation aerosol inhaler 2 puff inhalation Q6H PRN shortness of breath or wheezing #8.5 grams 02/17/23 [Rx Last Taken Unknown] budesonide-formoterol HFA 160 mcg-4.5 mcg/actuation aerosol inhaler (Symbicort) 1 puff inhalation BID #10.2 grams 02/17/23 [Rx Last Taken Unknown] inhalational spacing device (Aerochamber MV spacer) #1 ea 02/17/23 [Rx Last Taken Unknown] tiotropium bromide 2.5 mcg/actuation mist for inhalation (Spiriva Respimat) 2 puff inhalation DAILY #4 grams 02/17/23 [Rx Last Taken Unknown] pantoprazole 40 mg tablet,delayed release 40 mg PO Q12H #60 tabs 06/24/23 [Rx Last Taken Unknown] lorazepam 1 mg tablet (Ativan) 1 mg PO BID PRN anxiety 07/16/23 [History Last Taken Unknown] amiodarone 200 mg tablet 200 mg PO DAILY 07/22/23 [History Last Taken Unknown] carvedilol 6.25 mg tablet 6.25 mg PO Q12H 07/29/23 [History Last Taken Unknown] furosemide 20 mg tablet 20 mg PO Q12H 07/29/23 [History Last Taken Unknown] gabapentin 400 mg capsule 400 mg PO Q8H 07/29/23 [History Last Taken Unknown] nicotine (polacrilex) 4 mg gum 4 mg buccal Q6H PRN nicotine cravings 07/29/23 [History Last Taken Unknown] nicotine 10 mg inhalation cartridge (Nicotrol) 1 inh inhalation Q6H PRN nicotine cravings 07/29/23 [History Last Taken Unknown] nitroglycerin 0.4 mg sublingual tablet 0.4 mg buccal Q5M PRN chest pain 07/29/23 [History Last Taken Unknown] oxycodone myristate 9 mg capsule sprinkle extended release 12 hr(DON'T CRUSH) (Xtampza ER) 13.5 mg PO Q12H 07/29/23 [History Last Taken Unknown] sucralfate 1 gram tablet 1 g PO Q8H 07/29/23 [History Last Taken Unknown] albuterol sulfate 2.5 mg/3 mL (0.083 %) solution for nebulization 2.5 mg continuous nebulization Q6H PRN shortness of breath or wheezing 09/05/23 [History Last Taken Unknown] benzonatate 100 mg capsule 100 mg PO Q8H PRN 09/05/23 [History Last Taken Unknown] guaifenesin 600 mg tablet, extended release 12 hr (Mucinex) 600 mg PO Q12H PRN cough 09/05/23 [History Last Taken Unknown] melatonin 3 mg capsule 3 mg PO QHS 09/05/23 [History Last Taken Unknown] Allergy/AdvReac Type Severity Reaction Status Date / Time No Known Allergies Allergy Verified 09/05/23 19:46 Family History Mother Hypertension CAD (coronary artery disease) CVA (cerebral vascular accident) Myocardial infarction Grandmother Myocardial infarction Surgical History History of cardiac catheterization History of hysterectomy History of left heart catheterization (01/20/22) History of total hysterectomy Hx of appendectomy Hx of esophagogastroduodenoscopy Social History household members: none Smoking Status: Former smoker alcohol intake: never substance use type: does not use ROS <Dr. Lo Chu MD - Last Filed: 09/05/23 23:01> ROS ED Constitutional Constitutional ED: Denies chills or fever(s) Eyes Eyes: Denies discharge from eye(s) ENT ENT ED: Denies discharge from eye(s), rhinorrhea or sore throat Cardiovascular Cardiovascular: Denies chest pain or palpitations Respiratory/Chest Respiratory/Chest: Denies cough or dyspnea Gastrointestinal Gastrointestinal: Reports abdominal pain and nausea; Denies diarrhea or vomiting Genitourinary Genitourinary ED: Denies difficulty urinating or dysuria Musculoskeletal Musculoskeletal: Denies back pain or extremity pain Integumentary Denies Abrasions or rash Neurologic Neurologic: Denies headache(s) or weakness Psychiatric Psychiatric: Denies anxiety or depression Allergic/Immunologic Allergic/Immunologic ED: Denies lip swelling or urticaria EXAM <Dr. Lo Chu MD - Last Filed: 09/05/23 23:01> Physical Exam Const Vital Signs: 09/05/23 18:41 Temperature 98.4 F Temperature Source Oral Pulse Rate 100 Respiratory Rate 18 Blood Pressure 194/111 H Blood Pressure Mean 138 Pulse Ox 94 Oxygen Delivery Method Room Air Positive well nourished and well developed General Appearance ED: well developed HEENT Reports moist mucous membranes Eyes EOMs intact bilaterally Resp normal respiratory effort and clear to auscultation bilaterally Cardio regular rate and regular rhythm GI GI Narrative: Abdomen soft with mild tenderness to the right upper quadrant. No guarding or rebound. Hypoactive bowel sounds. Extremity full ROM Neuro CN's II-XII intact bilaterally and moves all extremities Psych mental status grossly normal Skin no wounds <Dr. Odell Dwyer DO - Last Filed: 09/05/23 23:08> Physical Exam Const Vital Signs: 09/05/23 18:41 Temperature 98.4 F Temperature Source Oral Pulse Rate 100 Respiratory Rate 18 Blood Pressure 194/111 H Blood Pressure Mean 138 Pulse Ox 94 Oxygen Delivery Method Room Air MDM <Dr. Lo Chu MD - Last Filed: 09/05/23 23:01> [facility] MDM Narrative Medical decision making narrative: Patient's recent GI visits are reviewed. IV line established. Patient given fentanyl and Zofran along with IV fluids. Labwork obtained to evaluate for leukocytosis, anemia, and electrolyte derangement. Urinalysis obtained to evaluate for infection/hematuria. CT scan with p.o. and IV contrast obtained to evaluate for acute pathology and status of the common bile duct stent. History & Record Review Discussion w/independent historian: Patient Additional record(s) reviewed:: Prior outpatient record, Prior ED visit and Prior labs Lab Data Attestation: I reviewed the patient's lab results. Labs: Laboratory Results - last 24 hr 09/05/23 19:40 WBC 8.8 RBC 4.31 Hgb 13.2 Hct 40.8 MCV 94.7 MCH 30.6 MCHC 32.4 RDW Std Deviation 44.6 H RDW Coeff of Sariah 12.9 Plt Count 258 MPV 8.7 Immature Gran % (Auto) 0.600 Neut % (Auto) 65.6 Lymph % (Auto) 22.2 [place] % (Auto) 7.5 Eos % (Auto) 3.5 Baso % (Auto) 0.6 Absolute Neuts (auto) 5.8 Absolute Lymphs (auto) 1.96 Nucleated RBC % 0 Sodium 137 Potassium 4.0 Chloride 105 Carbon Dioxide 28.0 Anion Gap 4 L BUN 14 Creatinine 0.90 Est GFR (MDRD) Af Amer 81 Est GFR (MDRD) Non-Af 67 BUN/Creatinine Ratio 15.6 Glucose 112 H Calcium 9.4 Total Bilirubin 0.50 Direct Bilirubin 0.19 AST 14 L ALT 18 Alkaline Phosphatase 126 H Total Protein 6.9 Albumin 2.8 L Globulin 4.1 Lipase 12 L Urine Color Yellow Urine Clarity Clear Urine pH 7.0 Ur Specific [place] 1.010 Urine Protein Negative Urine Glucose (UA) Normal Urine Ketones Negative Urine Occult Blood 10 H Urine Nitrite Negative Urine Bilirubin Negative Urine Urobilinogen Normal Ur Leukocyte Esterase Negative Urine RBC 0 SEEN Urine WBC 0 SEEN Ur Squamous Epith Cells 0 SEEN Urine Bacteria 0 SEEN Urine Mucus 0 SEEN Radiography Diagnostic Testing: Clinical Impression(s) from Imaging Studies Abdomen/Pelvis CT 09/05/23 19:01 IMPRESSION: 1. Nonspecific thickening of the gallbladder wall at the fundal aspect but no convincing evidence for acute cholecystitis. 2. Diverticulosis of the colon without acute diverticulitis. 3. 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 No extension beyond the bifurcation. 4. No acute or inflammatory disease or bowel obstruction otherwise. Electronically Signed: Ross Denton MD at 22:56 EST , Treatment and Re-Evaluation :: CBC was normal white count 8.8 with 13.2 hemoglobin. Differential is unremarkable. Chemistry studies significant only for glucose of 112. Renal f unction is normal. LFTs revealed alk phos of 126. ALT and AST are normal. Bilirubin levels are normal. Urinalysis reveals no infection and no urine ketones. Patient signed out to oncoming physician for final review of CT scan and disposition. <Dr. Odell Dwyer, DO - Last Filed: 09/05/23 23:08> [facility] Narrative Medical decision making narrative: Patient's recent GI visits are reviewed. IV line established. Patient given fentanyl and Zofran along with IV fluids. L abwork obtained to evaluate for leukocytosis, anemia, and electrolyte derangement. Urinalysis obtained to evaluate for infection/hematuria. CT scan with p.o. and IV contrast obtained to evaluate for acute pathology and status of the common bile duct stent. Lab Data Labs: Laboratory Results - last 24 hr 09/05/23 19:40 WBC 8.8 RBC 4.31 Hgb 13.2 Hct 40.8 MCV 94.7 MCH 30.6 MCHC 32.4 RDW Std Deviation 44.6 H RDW Coeff of Sariah 12.9 Plt Count 258 MPV 8.7 Immature Gran % (Auto) 0.600 Neut % (Auto) 65.6 Lymph % (Auto) 22.2 [place] % (Auto) 7.5 Eos % (Auto) 3.5 Baso % (Auto) 0.6 Absolute Neuts (auto) 5.8 Absolute Lymphs (auto) 1.96 Nucleated RBC % 0 Sodium 137 Potassium 4.0 Chloride 105 Carbon Dioxide 28.0 Anion Gap 4 L BUN 14 Creatinine 0.90 Est GFR (MDRD) Af Amer 81 Est GFR (MDRD) Non-Af 67 BUN/Creatinine Ratio 15.6 Glucose 112 H Calcium 9.4 Total Bilirubin 0.50 Direct Bilirubin 0.19 AST 14 L ALT 18 Alkaline Phosphatase 126 H Total Protein 6.9 Albumin 2.8 L Globulin 4.1 Lipase 12 L Urine Color Yellow Urine Clarity Clear Urine pH 7.0 Ur Specific [place] 1.010 Urine Protein Negative Urine Glucose (UA) Normal Urine Ketones Negative Urine Occult Blood 10 H Urine Nitrite Negative Urine Bilirubin Negative Urine Urobilinogen Normal Ur Leukocyte Esterase Negative Urine RBC 0 SEEN Urine WBC 0 SEEN Ur Squamous Epith Cells 0 SEEN Urine Bacteria 0 SEEN Urine Mucus 0 SEEN Radiography Diagnostic Testing: Clinical Impression(s) from Imaging Studies Abdomen/Pelvis CT 09/05/23 19:01 IMPRESSION: 1. Nonspecific thickening of the gallbladder wall at the fundal aspect but no convincing evidence for acute cholecystitis. 2. Diverticulosis of the colon without acute diverticulitis. 3. 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 No extension beyond the bifurcation. 4. No acute or inflammatory disease or bowel obstruction otherwise. Electronically Signed: Ross Denton MD at 22:56 EST , Treatment and Re-Evaluation :: CBC was normal white count 8.8 with 13.2 hemoglobin. Differential is unremarkable. Chemistry studies significant only for glucose of 112. Renal function is normal. LFTs revealed alk phos of 126. ALT and AST are normal. Bilirubin levels are normal. Urinalysis reveals no infection and no urine ketones. Patient signed out to oncoming physician for final review of CT scan and disposition. Patient was turned over to me by Dr. Chu @11 PM Brief history: 67-year-old female presents with abdominal pain in the setting of recent gallbladder intervention by her local GI doctor. Physical exam: Abdominal exam soft nontender not peritonitic no pulsatile abdominal masses or auscultated bruits on my exam. Patient's pulses were symmetric. She is in no acute distress. Labs and images reviewed (if obtained): CBC without leukocytosis, severe anemia, no thrombocytopenia. BMP without evidence of significant electrolyte abnormalities, no anion gap, no acute kidney injury. LFTs with elevation alkaline phosphatase however downtrending from prior no evidence of hyperbilirubinemia Urinalysis shows no evidence of urinary inflammation suggestive of UTI CT scan abdomen pelvis shows stable aortic aneurysm, no acute pathology The synthesis of the patient's history, physical exam, labs and images suggest no acute life-threatening etiology. Will give a short course of tramadol and close GI follow-up. Gave strict return precautions. Patient expressed understanding agree with the plan. MDM/plan: Impression: 1. Acute on chronic abdominal pain 2. Elevated alkaline phosphatase 3. Common bile duct stent Disposition: Discharge home Discharge Plan Triage Chief Complaint: Abd Pain ED Provider: Lo Chu Dx/Rx/DC Orders Prescriptions: No Action budesonide-formoterol [Symbicort] 160-4.5 mcg/actuation HFA aerosol inhaler 1 puff inhalation BID Qty: 10.2 11RF Spiriva Respimat 2.5 mcg/actuation mist 2 puff inhalation DAILY Qty: 4 11RF albuterol sulfate 90 mcg/actuation HFA aerosol inhaler 2 puff inhalation Q6H MDD 10 puffs PRN (Reason: shortness of breath or wheezing) Qty: 8.5 6RF Rx Instructions: This inhaler must be used with a spacer device. (DME) Aerochamber MV Spacer See Rx Instructions .ROUTE .MEDSUPPLY Qty: 1 0RF Rx Instructions: As directed lorazepam [Ativan] 1 mg tablet 1 mg PO BID PRN (Reason: anxiety) duloxetine [Cymbalta] 30 mg capsule,delayed release(DR/EC) 30 mg PO DAILY Qty: 30 0RF atorvastatin [Lipitor] 40 mg tablet 40 mg PO QHS 30 Days Qty: 30 0RF clopidogrel [Plavix] 75 mg tablet 75 mg PO DAILY 30 Days Qty: 30 0RF lisinopril 2.5 mg tablet 2.5 mg PO DAILY 30 Days Qty: 30 0RF ondansetron 4 mg tablet,disintegrating 4 mg PO Q8H PRN PRN (Reason: Nausea) Qty: 12 0RF pantoprazole 40 mg tablet,delayed release (DR/EC) 40 mg PO Q12H Qty: 60 3RF albuterol sulfate 2.5 mg /3 mL (0.083 %) solution for nebulization 2.5 mg continuous nebulization Q6H PRN (Reason: shortness of breath or wheezing) benzonatate 100 mg capsule 100 mg PO Q8H PRN melatonin 3 mg capsule 3 mg PO QHS guaifenesin [Mucinex] 600 mg tablet extended release 12hr 600 mg PO Q12H PRN (Reason: cough) amiodarone 200 mg tablet 200 mg PO DAILY gabapentin 400 mg capsule 400 mg PO Q8H carvedilol 6.25 mg tablet 6.25 mg PO Q12H furosemide 20 mg tablet 20 mg PO Q12H nicotine (polacrilex) 4 mg gum 4 mg buccal Q6H PRN (Reason: nicotine cravings) Nicotrol 10 mg cartridge 1 inh INHALATION Q6H PRN (Reason: nicotine cravings) nitroglycerin 0.4 mg tablet, sublingual 0.4 mg buccal Q5M PRN (Reason: chest pain) Xtampza ER 9 mg cap,sprinkl,ER12hr(DONT CRUSH) 13.5 mg PO Q12H sucralfate 1 gram tablet 1 g PO Q8H Primary Care Provider: Yee Mccray NP Referrals: Yee Mccray [facility], [facility] [Primary Care Provider] -
--- OUTSIDE RECORDS SUMMARY | 2023-09-05 19:17 | XMS RPT_ITS | CCD ---
Author Name Unknown Address [id number] [place] [address] Organization [facility] Care Team Providers Care Shoe Dresser Name Role Phone Kennedy NGUYEN, Alessio Cali Unavailable [phone] Emily Cook Unavailable Unavailable Emily Cook Unavailable Unavailable Unavailable Primary Care Provider Unavailabl e Unavailable Primary Care Provider Unavailabl e Unavailable Primary Care Provider Unavailabl e Familia MARTINEZ, Gabriel Quiñones Primary Care Provider TALAMPAS, GABRIEL D Primary Care Unavailable ZAK, NORA Referring Unavailable TALAMPAS, GABRIEL D Primary Care Unavailable AZK, NORA Referring Unavailable ZAK, NORA Attending Unavailable TALAMPAS, GABRIEL D Primary Care Unavailable TALAMPAS, GABRIEL D Primary Care Unavailable ZAK, NORA Attending Unavailable CHAPPELL, LYNDSEY Referring Unavailable TALAMPAS, GABRIEL D Primary Care Unavailable CHAPPELL, LYNDSEY Attending Unavailable TALAMPAS, GABRIEL D Primary Care Unavailable ZAK, NORA Referring Unavailable ZAK, NORA Referring Unavailable TALAMPAS, GABRIEL D Primary Care Unavailable ZAK, NORA Referring Unavailable TALAMPAS, GABRIEL D Primary Care Unavailable TALAMPAS, GABRIEL D Primary Care Unavailable ZAK, NORA Attending Unavailable CHAPPELL, LYNDSEY Attending Unavailable TALAMPAS, GABRIEL D Primary Care Unavailable ZAK, NORA Referring Unavailable Allergies Allergy Classification Reported Allergen(s) Allergy Type Date of Onset Reaction(s) Facility (6 sources) morphine; Translations: [MORPHINE] allergy to substance 2011 anaphylaxis [facility] Work Phone: (3 sources) NKDA drug allergy 01-02-2017 [facility] Work Phone: Medications Current Medications Medication Drug Class(es) Dates Sig (Normalized) Sig (Original) Acetaminophen (2 sources) Start: 06-16-2021 acetaminophen (TYLENOL) tablet 650 mg Completed/Discontinued Medications Medication Drug Class(es) Dates Sig (Normalized) Sig (Original) acetaminophen 325 mg / oxyCODONE hydrochloride 5 mg oral tablet (11 sources) Opioid Agonist Start: 07-26-2021 End: 07-26-2021 oxyCODONE-acetamin ophen (PERCOCET) 5-325 MG per tablet 1 tablet Problems Active Problems Problem Classification Problem Date Documented Date Episodic/Chronic Acute myocardial infarction (2 sources) Myocardial infarction; Translations: [Non-ST elevation (NSTEMI) myocardial infarction] Onset: 01-13-2023 Chronic Anxiety disorders (20 sources) Anxiety disorder; Translations: [Anxiety disorder, unspecified] Chronic Aortic; peripheral; and visceral artery aneurysms (2 sources) Aneurysm; Translations: [Abdominal aneurysm] Chronic Cardiac dysrhythmias (17 sources) Paroxysmal supraventricular tachycardia; Translations: [Supraventricular tachycardia] Onset: 06-16-2021 Chronic Chronic obstructive pulmonary disease and bronchiectasis (20 sources) Acute exacerbation of chronic obstructive airways disease; Translations: [Chronic obstructive pulmonary disease with (acute) exacerbation] Onset: 06-05-2014 Chronic Congestive heart failure; nonhypertensive (2 sources) Heart failure with reduced ejection fraction; Translations: [Unspecified systolic (congestive) heart failure] Onset: 01-13-2023 Chronic Coronary atherosclerosis and other heart disease (3 sources) Coronary arteriosclerosis; Translations: [Atherosclerotic heart disease of [place] coronary artery without angina pectoris] Onset: 06-21-2012 06-21-2012 Chronic Diabetes mellitus with complications (1 source) Type 2 diabetes mellitus with other specified complication; Translations: [Type 2 diabetes mellitus with other specified complication, without long-term current use of insulin (HCC)] Onset: 01-13-2023 Chronic Diabetes mellitus without complication (15 sources) Type 2 diabetes mellitus; Translations: [Type 2 diabetes mellitus without complications] Onset: 01-13-2023 Chronic Disorders of lipid metabolism (20 sources) Hyperlipidemia; Translations: [Mixed hyperlipidemia] Onset: 06-21-2012 06-21-2012 Chronic Diverticulosis and diverticulitis (20 sources) Diverticular disease; Translations: [Diverticulosis of intestine, part unspecified, without perforation or abscess without bleeding] Onset: 03-20-2015 03-20-2015 Chronic E Codes: Fall (1 source) Fall; Translations: [Unspecified fall, initial encounter] Episodic Esophageal disorders (20 sources) Gastroesophageal reflux disease; Translations: [Gastro-esophageal reflux disease without esophagitis] Onset: 06-05-2014 06-05-2014 Chronic Essential hypertension (20 sources) Essential hypertension; Translations: [Hypertensive disorder] Onset: 12-16-2011 12-16-2011 Chronic Genitourinary symptoms and ill-defined conditions (20 sources) Female stress incontinence; Translations: [Stress incontinence (female) (male)] Onset: 07-07-2014 11-21-2015 Chronic Genitourinary symptoms and ill-defined conditions (1 source) Blood in urine; Translations: [Hematuria, unspecified] Episodic Menopausal disorders (20 sources) Menopausal symptom; Translations: [Menopausal and female climacteric states] Onset: 12-30-2005 06-05-2014 Chronic Mood disorders (20 sources) Depressive disorder; Translations: [Depression] Chronic Mycoses (1 source) Candidiasis of mouth; Translations: [Candidal stomatitis] Episodic Nutritional deficiencies (1 source) Vitamin D deficiency, unspecified; Translations: [Vitamin D deficiency] Onset: 04-24-2023 Chronic Other and ill-defined heart disease (1 source) Mural thrombus of left ventricle; Translations: [Intracardiac thrombosis, not elsewhere classified] Chronic Other and ill-defined heart disease (1 source) Intracardiac thrombosis, not elsewhere classified; Translations: [LV (left ventricular) mural thrombus] Onset: 01-13-2023 Chronic Other circulatory disease (1 source) Carotid bruit; Translations: [Other specified symptoms and signs involving the circulatory and respiratory systems] Episodic Other connective tissue disease (1 source) Pain in right lower limb; Translations: [Pain in right leg] 05-01-2023 Episodic Other diseases of bladder and urethra (20 sources) Overactive bladder; Translations: [Overactive bladder] Onset: 02-18-2019 02-18-2019 Chronic Other lower respiratory disease (1 source) Hypoxia; Translations: [Hypoxemia] Episodic Other lower respiratory disease (1 source) Cough; Translations: [Cough] Episodic Other lower respiratory disease (1 source) Dyspnea; Translations: [Shortness of breath] Episodic Other lower respiratory disease (1 source) Chronic cough; Translations: [Chronic cough] 04-28-2023 Episodic Other nervous system disorders (20 sources) Chronic pain; Translations: [Other chronic pain] 09-02-2021 Chronic Other nervous system disorders (2 sources) Neuropathy; Translations: [Polyneuropathy, unspecified] Chronic Other nervous system disorders (1 source) Polyneuropathy, unspecified; Translations: [Neuropathy] Onset: 04-24-2023 Chronic Other nervous system disorders (1 source) Paresthesia; Translations: [Paresthesia of skin] 05-01-2023 Episodic Other nutritional; endocrine; and metabolic disorders (3 sources) Body mass index (BMI) 30.0-30.9, adult; Translations: [Body mass index (BMI) 30.0-30.9, adult] Onset: 01-03-2016 01-02-2017 Chronic Other screening for suspected conditions (not mental disorders or infectious disease) (7 sources) Patient encounter status; Translations: [Encounter for screening mammogram for malignant neoplasm of breast] Onset: 05-12-2018 05-12-2018 Episodic Germaine-; endo-; and myocarditis; cardiomyopathy (16 sources) Cardiomyopathy; Translations: [Cardiomyopathy associated with another disorder] Onset: 06-21-2012 06-21-2012 Chronic Pneumonia (except that caused by tuberculosis or sexually transmitted disease) (1 source) Infective pneumonia; Translations: [Pneumonia, unspecified organism] Episodic Prolapse of female genital organs (20 sources) Cystocele; Translations: [Cystocele, unspecified] Onset: 10-04-2014 11-13-2014 Chronic Screening or history of mental health and substance abuse (3 sources) Tobacco dependence syndrome; Translations: [Nicotine dependence, unspecified, uncomplicated] Onset: 12-17-2015 12-17-2015 Chronic Substance-related disorders (20 sources) Smoker; Translations: [Nicotine dependence, unspecified, uncomplicated] Onset: 12-28-2015 12-22-2016 Chronic Superficial injury; contusion (1 source) Contusion of rib; Translations: [Contusion of left front wall of thorax, initial encounter] Episodic Thyroid disorders (20 sources) Hyperthyroidism; Translations: [Thyrotoxicosis, unspecified without thyrotoxic crisis or storm] Onset: 03-17-2018 03-17-2018 Chronic Unclassified (1 source) Abdominal aneurysm; Translations: [Abdominal aneurysm] Onset: 09-30-2022 Viral infection (6 sources) Disease caused by 2019-nCoV; Translations: [COVID-19] Onset: 06-14-2021 Episodic Past or Other Problems Problem Classification Problem Date Documented Date Episodic/Chronic Abdominal hernia (3 sources) Gastroesophageal reflux disease with hiatal hernia; Translations: [Diaphragmatic hernia without obstruction or gangrene] Onset: 12-16-2011 12-16-2011 Episodic Abdominal pain (20 sources) Right sided abdominal pain; Translations: [Unspecified abdominal pain] Onset: 08-21-2016 08-21-2016 Episodic Blindness and vision defects (20 sources) Visual disturbance; Translations: [Unspecified visual disturbance] Onset: 08-21-2016 08-21-2016 Episodic Calculus of urinary tract (3 sources) History of calculus of kidney; Translations: [Personal history of urinary calculi] Onset: 12-16-2011 12-16-2011 Episodic Cardiac dysrhythmias (20 sources) Palpitations; Translations: [Palpitations] Onset: 09-29-2016 01-02-2017 Episodic Conditions associated with dizziness or vertigo (3 sources) Dizziness; Translations: [Dizziness and giddiness] Onset: 09-30-2022 Episodic Malaise and fatigue (1 source) Weakness; Translations: [General weakness] Onset: 04-24-2023 Episodic Neoplasms of unspecified nature or uncertain behavior (20 sources) Neoplasm of uncertain behavior of back; Translations: [Neoplasm of uncertain behavior of other specified sites] Onset: 12-22-2016 12-22-2016 Episodic Nonspecific chest pain (5 sources) Atypical chest pain; Translations: [Chest pain] Onset: 2011 2011 Episodic Other aftercare (3 sources) Other termite exterminator helper (current) drug therapy; Translations: [Other termite exterminator helper (current) drug therapy] Onset: 01-02-2017 01-02-2017 Episodic Other aftercare (4 sources) Drug therapy finding; Translations: [Other fci (current) drug therapy] Onset: 04-27-2018 04-27-2018 Episodic Other aftercare (1 source) Encounter for therapeutic drug level monitoring; Translations: [Encounter for therapeutic drug monitoring] Onset: 04-24-2023 Episodic Other circulatory disease (1 source) Other specified symptoms and signs involving the circulatory and respiratory systems; Translations: [Bruit of left carotid artery] Onset: 09-30-2022 Episodic Other connective tissue disease (3 sources) Pain in lower limb; Translations: [Pain in left leg] Onset: 12-16-2011 12-16-2011 Episodic Other injuries and conditions due to external causes (20 sources) Catecholamine level - finding; Translations: [Elevated urine levels of drugs, medicaments and biological substances] Onset: 03-17-2018 03-17-2018 Episodic Other lower respiratory disease (1 source) Shortness of breath; Translations: [Shortness of breath] Onset: 01-13-2023 Episodic Other nervous system disorders (20 sources) Tremor; Translations: [Tremor, unspecified] Onset: 06-24-2017 06-24-2017 Episodic Other nervous system disorders (1 source) Other symptoms and signs involving cognitive functions and awareness; Translations: [Self-care deficit for medication administration] Onset: 01-13-2023 Episodic Other nutritional; endocrine; and metabolic disorders (3 sources) Body mass index (BMI) 29.0-29.9, adult; Translations: [Body mass index (BMI) 29.0-29.9, adult] Onset: 01-03-2016 01-03-2016 Episodic Residual codes; unclassified (20 sources) Memory impairment; Translations: [Other amnesia] Onset: 06-24-2017 06-24-2017 Episodic Residual codes; unclassified (1 source) Other specified health status; Translations: [Self-care deficit] Onset: 01-13-2023 Episodic Spondylosis; intervertebral disc disorders; other back problems (20 sources) Low back pain; Translations: [Lumbago] Onset: 12-30-2005 12-22-2016 Episodic Syncope (4 sources) Near syncope; Translations: [Syncope and collapse] Onset: 08-21-2016 08-21-2016 Episodic Results Test Name Value Interpretation Reference Range Facil ity Vital Signs Date Time Vital Sign Value Performing Clinician Facility 01-13-2023 14:18-0400 Body weight 83.01 kg Lyndsey Chappell APRN.CALL CENTER SUPPORT REPRESENTATIVE Work Phone: [facility] 01-13-2023 14:18-0400 Diastolic blood pressure 84 mm[Hg] Lyndsey Chappell APRN.CALL CENTER SUPPORT REPRESENTATIVE Work Phone: [facility] 01-13-2023 14:18-0400 Heart rate 83 /min Lyndsey Chappell REHEATER.CALL CENTER SUPPORT REPRESENTATIVE Work Phone: [facility] 01-13-2023 14:18-0400 Respiratory rate 16 /min Lyndsey Chappell REHEATER.CALL CENTER SUPPORT REPRESENTATIVE Work Phone: [facility] 01-13-2023 14:18-0400 SaO2% (BldA) [Mass fraction] 97 % Lyndsey Chappell REHEATER.CALL CENTER SUPPORT REPRESENTATIVE Work Phone: [facility] 01-13-2023 14:18-0400 Systolic blood pressure 118 mm[Hg] Lyndsey Chappell REHEATER.CALL CENTER SUPPORT REPRESENTATIVE Work Phone: [facility] 09-23-2022 14:37-0500 Body height 162.6 cm Nora Zak REHEATER.LOAN ASSOCIATE Work Phone: [facility] 09-23-2022 14:37-0500 Body weight 83.01 kg Nora Zak REHEATER.LOAN ASSOCIATE Work Phone: [facility] 09-23-2022 14:37-0500 Diastolic blood pressure 60 mm[Hg] Nora Zak REHEATER.LOAN ASSOCIATE Work Phone: [facility] 09-23-2022 14:37-0500 Heart rate 58 /min Nora Zak REHEATER.LOAN ASSOCIATE Work Phone: [facility] 09-23-2022 14:37-0500 SaO2% (BldA) [Mass fraction] 92 % Nora Zak REHEATER.LOAN ASSOCIATE Work Phone: [facility] 09-23-2022 14:37-0500 Systolic blood pressure 108 mm[Hg] Nora Zak REHEATER.LOAN ASSOCIATE Work Phone: [facility] 01-14-2022 16:12-0400 Body temperature 99.3 [degF] Pascale Mata REHEATER.LOAN ASSOCIATE Work Phone: [facility] 01-14-2022 16:12-0400 Body weight 84.28 kg Pascale Mata REHEATER.LOAN ASSOCIATE Work Phone: [facility] 01-14-2022 16:12-0400 Diastolic blood pressure 84 mm[Hg] Pascale Mata REHEATER.LOAN ASSOCIATE Work Phone: [facility] 01-14-2022 16:12-0400 Heart rate 112 /min Pascale Mata REHEATER.LOAN ASSOCIATE Work Phone: [facility] 01-14-2022 16:12-0400 Respiratory rate 20 /min Pascale Mata REHEATER.LOAN ASSOCIATE Work Phone: [facility] 01-14-2022 16:12-0400 SaO2% (BldA) [Mass fraction] 94 % Pascale Mata REHEATER.LOAN ASSOCIATE Work Phone: [facility] 01-14-2022 16:12-0400 Systolic blood pressure 146 mm[Hg] Pascale Mata REHEATER.LOAN ASSOCIATE Work Phone: [facility] 07-26-2021 17:26-0500 Diastolic blood pressure 90 mm[Hg] [facility] 07-26-2021 17:26-0500 Heart rate 80 /min [facility] 07-26-2021 17:26-0500 Respiratory rate 18 /min [facility] 07-26-2021 17:26-0500 SaO2% (BldA) [Mass fraction] 98 % [facility] 07-26-2021 17:26-0500 Systolic blood pressure 135 mm[Hg] [facility] 07-26-2021 13:58-0500 Body temperature 98.01 [degF] [facility] 06-18-2021 11:41-0400 Body temperature 98.1 [degF] Paige Chacha DO [facility] Phone: [facility] Work Phone: 06-18-2021 11:41-0400 Diastolic blood pressure 89 mm[Hg] Paige Chacha DO Work Phone: [facility] Work Phone: 06-18-2021 11:41-0400 Heart rate 73 /min Paige Chacha DO Work Phone: [facility] Work Phone: 06-18-2021 11:41-0400 Respiratory rate 12 /min Paige Chacha DO Work Phone: [facility] Work Phone: 06-18-2021 11:41-0400 SaO2% (BldA) [Mass fraction] 94 % Paige Burnham DO Work Phone: [facility] Work Phone: 06-18-2021 11:41-0400 Systolic blood pressure 145 mm[Hg] Paige Burnham DO Work Phone: [facility] Work Phone: 06-15-2021 20:07-0400 Body height 167.6 cm Paige Burnham DO Work Phone: [facility] Work Phone: 06-15-2021 20:07-0400 Body mass index (BMI) [Ratio] 25.82 kg/m2 Paige Burnham DO Work Phone: [facility] Work Phone: 06-15-2021 20:07-0400 Body weight 72.58 kg Paige Burnham DO Work Phone: [facility] Work Phone: 06-14-2021 22:40-0400 Heart rate 84 /min Juice Nesheim DO Work Phone: [facility] Work Phone: 06-14-2021 22:40-0400 SaO2% (BldA) [Mass fraction] 94 % Juice Nesheim DO Work Phone: [facility] Work Phone: 06-14-2021 22:07-0400 Body temperature 97.59 [degF] Juice Nesheim DO Work Phone: [facility] Work Phone: 06-14-2021 22:07-0400 Diastolic blood pressure 83 mm[Hg] Juice Nesheim DO Work Phone: [facility] Work Phone: 06-14-2021 22:07-0400 Respiratory rate 14 /min Juice Nesheim DO Work Phone: [facility] Work Phone: 06-14-2021 22:07-0400 Systolic blood pressure 132 mm[Hg] Juice Nesheim DO Work Phone: [facility] Work Phone: 06-14-2021 10:29-0400 Body height 167.6 cm Juice Nesheim DO Work Phone: [facility] Work Phone: 06-14-2021 10:29-0400 Body mass index (BMI) [Ratio] 20.98 kg/m2 Juice Nesheim DO Work Phone: [facility] Work Phone: 06-14-2021 10:29-0400 Body weight 58.97 kg Juice Nesheim DO Work Phone: [facility] Work Phone: 01-02-2017 09:27-0400 BMI (Body Mass Index) 30.02 kg/m2 Emilyrogerio [facility] Work Phone: 01-02-2017 09:27-0400 BP Diastolic 82 mm[Hg] Emily Joy [facility] Work Phone: 01-02-2017 09:27-0400 BP Systolic 120 mm[Hg] Emily Marthey [facility] Work Phone: 01-02-2017 09:27-0400 Height 166.37 cm Emily Marthey [facility] Work Phone: 01-02-2017 09:27-0400 Pulse (Heart Rate) 100 /min Emily Marthey [facility] Work Phone: 01-02-2017 09:27-0400 Respiratory Rate 14 /min Emily Marthey [facility] Work Phone: 01-02-2017 09:27-0400 Weight 83.1 kg Emily Joy [facility] Work Phone: 01-03-2016 08:40-0400 BSA (Body Surface Area) 1.92 m2 Emily [facility] Work Phone: 12-16-2011 15:44-0400 Body Temperature 99.6 [degF] Emily [facility] Work Phone: 12-16-2011 15:44-0400 BP Diastolic 111 mm[Hg] Emily [facility] Work Phone: 12-16-2011 15:44-0400 BP Systolic 158 mm[Hg] [facility] Work Phone: 12-16-2011 15:44-0400 Pulse Oximetry 96 % [facility] Work Phone: Encounters Encounter Date Encounter Type Care Provider Facility Start: 08-12-2023 ambulatory Gabriel gregory MD Work Phone: Internal Medicine [facility] Start: 05-04-2023 Telephone encounter Nora canseco REHEATER.LOAN ASSOCIATE Work Phone: Internal Medicine [facility] Procedures Date Procedure Procedure Detail Performing Clinician Start: 05-01-2023 Nerve conduction angela dies 5-6 studies Nora Mccray REHEATER.LOAN ASSOCIATE Work Phone: Start: 09-30-2022 Us retroperitoneal r eal time w/image limited Nora Mccray REHEATER.LOAN ASSOCIATE Work Phone: Start: 09-23-2022 Urnls dip stick/tabl et rgnt auto w/o microscopy Nora Taylorr REHEATER.LOAN ASSOCIATE Work Phone: Start: 07-26-2021 Radex ribs uni w/pos teroant ch minimum 3 views Piero RIBERA Work Phone: Start: 06-18-2021 Procalcitonin (pct) Keisha Hill MD Work Phone: Start: 06-17-2021 Fibrin dgradj produc ts d-dimer quantitative Jesus Hill MD Work Phone: Start: 06-17-2021 Assay of lactate Jesus Hill MD Work Phone: Start: 06-17-2021 C-reactive protein Pram od Liz MARTINEZ Work Phone: Start: 06-16-2021 Assay of ferritin Keishamo d Liz MARTINEZ Work Phone: Start: 06-16-2021 C-reactive protein Pram od Liz MARTINEZ Work Phone: Start: 06-15-2021 Ct angiography chest w/contrast/noncontrast Paige Burnham DO Work Phone: Start: 06-15-2021 Radiologic exam ches t single view Paigetiffany Burnham DO Work Phone: Start: 06-15-2021 POCT VENOUS Paige contreras DO Work Phone: Start: 06-15-2021 Comprehensive metabolic panel Paigetiffany Burnham DO Work Phone: Start: 06-15-2021 End: 06-15-2021 Ecg routine ecg w/least 12 lds w/i&r Paigetiffany Burnham DO Work Phone: Start: 06-14-2021 C-reactive protein Tobias Beatty MD Work Phone: Start: 06-14-2021 Procalcitonin (pct) Judy Beatty MD Work Phone: Start: 06-14-2021 Drug screen class list a Brady Beatty MD Work Phone: Start: 06-14-2021 Iaad ia mult step me thod nos each organism Brady Beatty MD Work Phone: Start: 06-14-2021 STREP PNEUMONIAE ANTIGEN Brady Beatty MD Work Phone: Start: 06-14-2021 COVID-19, RAPID Juice Jorden Castro DO Work Phone: Start: 06-14-2021 End: 06-14-2021 Basic metabolic panel calcium total Juice G Nesheim DO Work Phone: Start: 06-14-2021 Radiologic exam ches t single view Juice Castro DO Work Phone: Start: 06-14-2021 Ecg routine ecg w/le ast 12 lds w/i&r Juice Castro DO Work Phone: Start: 08-23-2019 Electrocardiogram Start: 01-02-2017 End: 01-19-2017 Echocardiography Danny Best MD Start: 04-16-2016 Colonoscopy Pascale Ri ggs REHEATER.LOAN ASSOCIATE Work Phone: Start: 01-03-2016 End: 01-03-2016 Follow Up Appt 1 year Alessio jaquez PA-C Work Phone: Start: 01-03-2016 End: 01-03-2016 PFM Alessio Cook PA-C Work Phone: Start: 04-20-2013 End: 11-22-2015 Echocardiography Danny Best MD Start: 04-20-2013 End: 04-20-2013 Electrocardiogram, complete Danny ferguson MD Start: 04-20-2013 End: 04-20-2013 Follow Up Appt 6 months Danny Best MD Start: 04-20-2013 End: 04-20-2013 PFM Danny Best MD Start: 06-21-2012 End: 01-26-2013 *Hepatic Function Panel Danny Best MD Start: 06-21-2012 End: 06-21-2012 Follow Up Appt 3 months Danny Best MD Start: 06-21-2012 End: 01-26-2013 Lipid panel [AGGREGATE] Danny Best MD Start: 12-16-2011 End: 01-14-2013 Chest x-ray Libby Munguia MD Start: 2011 End: 2011 Lipid panel [AGGREGATE] Libby Munguia MD Plan of Treatment Date Care Activity Detail Author Start: 04-16-[address] [facility] Start: 04-16-2026 COLORECTAL CANCER SCREENING COLORECTAL CANCER SCREENING [facility] Start: 09-23-2025 DIABETES SCREEN DIABETES SCREEN [facility] Start: 04-24-2024 ANNUAL PCP TEAM TIE FASTENER BIA DISEASE VISIT ANNUAL PCP TEAM CHRONIC DISEASE VISIT [facility] Start: 04-24-2024 BP CONTROLLED (<130/80) BP CONTROLLE D (<130/80) [facility] Start: 04-24-2024 Hepatitis B screening URINE ALBUMIN:CREATININE RATIO [facility] Start: 04-24-2024 Hepatitis B surface antibody level LDL CHOLESTEROL [facility] Start: 04-22-2024 LIPID SCREEN LIPID SCREEN [facility] Start: 04-15-2024 ANNUAL PCP TEAM TIE FASTENER BIA DISEASE VISIT ANNUAL PCP TEAM CHRONIC DISEASE VISIT [facility] Start: 10-25-2023 Hemoglobin A1c/Hemoglobin.total in Blood HBA1C [facility] Start: 09-23-2023 ANNUAL PCP TEAM TIE FASTENER BIA DISEASE VISIT ANNUAL PCP TEAM CHRONIC DISEASE VISIT [facility] Start: 09-23-2023 BP CONTROLLED (<130/80) BP CONTROLLE D (<130/80) [facility] Start: 05-08-2023 Influenza vaccination C [facility] Start: 03-23-2023 Hemoglobin A1c/Hemoglobin.total in Blood HBA1C [facility] Start: 09-23-2022 End: 11-23-2022 Alpha 1 antitrypsin [Mass/volume] in Serum or Plasma [facility] Work Phone: Immunizations Immunization Date Immunization Notes Care Provider Fa selam 07-22-2018 influenza, seasonal, injectable, preservative free Nora Mccray REHEATER.LOAN ASSOCIATE Work Phone: [facility] Work Phone: 07-22-2018 influenza virus vacc ine, unspecified formulation [facility] Work Phone: [facility] 06-24-2017 influenza, injectabl e, quadrivalent, contains preservative Pascale Mata REHEATER.LOAN ASSOCIATE Work Phone: [facility] 06-24-2017 pneumococcal conjuga te vaccine, 13 valent Pascale Mata REHEATER.LOAN ASSOCIATE Work Phone: [facility] 06-07-2014 influenza, injectabl e, quadrivalent, preservative free Nora Zak REHEATER.LOAN ASSOCIATE Work Phone: [facility] Work Phone: 06-07-2014 influenza, seasonal, injectable, preservative free Nora Zak REHEATER.LOAN ASSOCIATE Work Phone: [facility] Work Phone: 06-05-2014 influenza, seasonal, injectable Pascale Mata REHEATER.LOAN ASSOCIATE Work Phone: [facility] [facility] Work Phone: 06-05-2014 pneumococcal polysaccharide vaccine, 23 valent Pascale Mata REHEATER.LOAN ASSOCIATE Work Phone: [facility] Work Phone: Payers Date Payer Category Payer Private Health Insurance [id number] 2022 Medicare [id number] 2022 Medicare [id number] 2022 Medicaid [id number] 2022 Medicaid [id number] 2015 Medicare [id number] 2015 Unknown [id number] Social History Date Type Detail Facility Start: 06-14-2021 End: 08-28-2022 Tobacco smoking status OHIS Current every day smoker [facility] Work Phone: History of tobacco use Cigarette Smoker S [facility] Start: 06-14-2021 End: 01-08-2023 Cigarettes smoked current (pack per day) - Reported [facility] Start: 06-14-2021 End: 06-16-2021 Tobacco use and exposure Current user [facility] Start: 06-14-2021 End: 06-16-2021 Alcohol intake Ex-drinker (finding) [facility] Work Phone: Start: 1955 Sex Assigned At Not on file S [facility] Work Phone: Exposure to SARS-CoV -2 (event) Yes [facility] Start: 01-04-2022 End: 01-20-2022 Exposure to SARS-CoV-2 (event) Not sure [facility] Start: 01-14-2022 End: 04-24-2023 Alcohol intake Current non-drinker of alcohol (finding) [facility] Start: 09-22-2019 End: 08-28-2022 Tobacco Comment [address] [facility] Start: 09-22-2019 End: 09-23-2022 Tobacco use and exposure Smokeless tobacco non-user [facility] Work Phone: Start: 09-23-2022 [facility] Occ[facility] tobacco sm[facility] Work Phone: Start: 01-08-2023 End: 04-15-[address] [facility] PHQ2 Score 0 [facility] Clinical Notes 04-16-2016 to 08-12-2023 Telephone Encounter - Marisa Ramos LPN - 05/04/2023 4:25 PM EDTTelephone Encounter - Nora Mccray APRN.CNP - 05/04/2023 10:39 AM Cordell Kunz DO - 05/01/2023 1:32 PM EDTInstructions Note Date & Type Note Facility 08-12-2023 Note Patient Outreach (IN [facility]) ECHO MASCOROR ([id number]) 1955 F T Date Time Provider Department 08/12/23 GABRIEL GALVAN During your visit today, we recorded the following information about you: Allergies As of Date: 08/12/2023 (No Known Allergies) Date Reviewed: 04/24/2023 Reviewed by: Marisa Ramos LPN - Fully Assessed Visit Diagnosis:Encounter for screening mammogram for breast cancer [Z12.31] Order(s):[facility] SCREENING [[id number]] Order #: [id number] FUTURE Prescriptions as of 08/17/2023 - Cholecalciferol, Vitamin D3, 125 mcg (5,000 unit) cap Take 1 capsule by mouth once daily. - carbamide peroxide (DEBROX) 6.5 % otic solution Use 5 Drops in both ears twice daily. - gabapentin (NEURONTIN) 400 mg capsule Take 1 capsule by mouth three times daily for 90 days. - nicotine (NICODERM) 21 mg/24 hr Apply 1 Patch as directed every 24 hours. x 6 weeks, then decrease to the 14 mg patch - nicotine (NICODERM) 14 mg/24 hr Apply 1 Patch as directed every 24 hours. x 2 weeks, then decrease to 7 mg patch - nicotine (NICODERM) 7 mg/24 hr Apply 1 Patch as directed every 24 hours. - carvedilol (COREG) 6.25 mg tablet TWICE A DAY - lisinopril 2.5 mg tablet DAILY - DULoxetine (CYMBALTA) 30 mg capsule Take 1 capsule by mouth once daily. - pantoprazole DR (PROTONIX) 40 mg tablet Take 1 tablet by mouth twice daily. - clopidogrel (PLAVIX) 75 mg tablet Take 1 tablet by mouth once daily. - tiotropium bromide (SPIRIVA RESPIMAT) 2.5 mcg/actuation inhaler Inhale 2 Puffs as instructed once daily. Inhale two puffs once daily. - sucralfate (CARAFATE) 1 gram tablet Take 1 tablet by mouth before meals and at bedtime. - benzonatate (TESSALON PERLES) 100 mg capsule Take 1 capsule by mouth three times daily as needed for cough. - famotidine (PEPCID) 40 mg tablet Take 1 tablet by mouth once daily. - nystatin (MYCOSTATIN) 100,000 unit/mL suspension Take 5 mL by mouth four times daily. 1tsp swish in mouth for several minutes, then swallow (or expectorate) 4 times daily until gone. - umeclidinium-vilanterol (ANORO ELLIPTA) 62.5-25 mcg/actuation inhaler Inhale 1 Inhalation as instructed once daily. - albuterol HFA (PROVENTIL HFA, VENTOLIN HFA) 90 mcg/actuation inhaler Inhale 2-4 Puffs as instructed every 2 hours as needed for wheezing/shortness of breath. - amiodarone (PACERONE) 200 mg tablet Take 200 mg by mouth twice daily. - atorvastatin (LIPITOR) 40 mg tablet Take 40 mg by mouth daily at bedtime. - furosemide (LASIX) 20 mg tablet Take 20 mg by mouth twice daily. - PARoxetine (PAXIL) 40 mg tablet - ondansetron orally disintegrating (ZOFRAN ODT) 4 mg disintegrating tablet Take 1 tablet by mouth every 6 hours as needed for nausea/vomiting. - docusate sodium (COLACE) 100 mg capsule Take 1 capsule by mouth twice daily as needed for constipation. - Diaper,Brief, Adult,Disposable (DEPEND EASY FIT UNDERGARMENTS) misc Size Medium pull up. Change depends once every 1-2 hrs. Dx incontinence (788.30) Prolapsed bladder (618.01) - LORazepam (ATIVAN) 1 mg tablet Take 1 tablet by mouth every 6 hours as needed. Per counseling center Problem List As Of Date 08/12/2023 Noted Resolved Essential hypertension, benign [I10] Lumbago [M54.50] 12/30/2005 Symptomatic menopausal or female climacteric st*12/30/2005 Anxiety [F41.9] Depression [F32.A] GERD (gastroesophageal reflux disease) [K21.9] Chronic pain [G89.29] COPD (chronic obstructive pulmonary disease) [J* Routine gynecological examination [Z01.419] 06/05/2014 09/23/2022 Well adult exam [Z00.00] 06/05/2014 09/23/2022 Stress incontinence, female [N39.3] 07/07/2014 Mixed hyperlipidemia [E78.2] 07/10/2014 Bladder prolapse, female, acquired [N81.10] 10/04/2014 Diverticulosis [K57.90] 03/20/2015 Smoker [F17.200] 12/28/2015 Epigastric pain [R10.13] 04/16/2016 04/16/2016 Colon cancer screening [Z12.11] 04/16/2016 04/16/2016 Sanchez's esophagus [K22.70] 08/21/2016 Right sided abdominal pain [R10.9] 08/21/2016 Visual disturbances [H53.9] 08/21/2016 Near syncope [R55] 08/21/2016 09/23/2022 Heart palpitations [R00.2] 09/29/2016 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] 12/22/2016 Medicare annual wellness visit, subsequent [Z00*06/24/2017 09/23/2022 Tremor [R25.1] 06/24/2017 Memory difficulties [R41.3] 06/24/2017 Elevated plasma metanephrines [R79.89] 03/17/2018 Hyperthyroidism [E05.90] 03/17/2018 High catecholamines [R82.5] 03/17/2018 Current use of proton pump inhibitor [Z79.899] 04/27/2018 09/23/2022 Encounter for screening mammogram for breast ca*05/12/2018 09/23/2022 OAB (overactive bladder) [N32.81] 02/18/2019 Opioid dependence (HCC) [F11.20] 01/15/2020 09/23/2022 Diabetes mellitus (HCC) [E11.9] 01/13/2023 Cardiomyopathy in disease classified elsewhere *01/13/2023 Supraventricular tachycardia (HCC) [I47.10] 01/13/2023 En (more content not included)... [facility] 05-04-2023 Miscellaneous Notes PATIENT NOTIFIED OF SAME. Please let her know EMG results are that she has a mild polyneuropathy and also has some residual pain/symptoms likely from an old issue in her back around L5 and the lower part of her back at S1 that would be contributing to her symptoms, this was more noticeable on the right side. Patient calls and asking about EMG results that she had done on 05/01/2023. Please review and advise, Linh Villalobos RN documented in this encounter [facility] 05-01-2023 Note HNO ID: [id number] Author: Cordell Kirkpatrick DO Service: ? Author Type: Physician Type: Progress Notes Filed: 05/01/2023 2:16 PM Note Text: UNIVERSAL PROTOCOL / SAFETY CHECKLIST Procedure to be Performed: EMG Sign In: A Moment of CARE was completed. Personnel directly involved with the procedure wore the appropriate PPE (Personal Protective Equipment). Patient/Surrogate Stated/Verified: PATIENT VERIFIED(optional for EMERGENT procedures): Patient name, Date of , Relevant allergies, and The intended procedure Time Out Communication: Intended patient and procedure match the source documents. Correct side/site marked and visible. Sign Out: SIGN OUT (optional for EMERGENT procedures): Post-procedure follow-up management communicated and Plan of Care Visit completed when applicable. PATRIC Alva Tech Cordell Kirkpatrick DO [facility] 05-01-2023 History of Present illness Narrative UNIVERSAL PROTOCOL / SAFETY CHECKLIST Procedure to be Performed: EMG Sign In: A Moment of CARE was completed. Personnel directly involved with the procedure wore the appropriate PPE (Personal Protective Equipment). Patient/Surrogate Stated/Verified: PATIENT VERIFIED(optional for EMERGENT procedures): Patient name, Date of , Relevant allergies, and The intended procedure Time Out Communication: Intended patient and procedure match the source documents. Correct side/site marked and visible. Sign Out: SIGN OUT (optional for EMERGENT procedures): Post-procedure follow-up management communicated and Plan of Care Visit completed when applicable. Penny Alvarez EMG Noble Kirkpatrick DO documented in this encounter [facility] 04-30-[address] scheduled, 05/13/2023. Randee Dobbs LPN New script sent for RX, please help with setting up Ct of lungs. Thanks! Patient states that vitamin D. Order was sent to wrong pharmacy. Patient has to use [facility] which is pharmacy for [facility] which she currently is at. Patient also requesting physical therapy orders to be faxed to [facility] [phone]. Faxed as requested. Linh Villalobos RN Please let her know that chest CT has been ordered, please help with scheduling. Pt called back and information below given. Pt would like to have a CT of the lung done. Once orders are in, please call pt to help get apt booked. Danna Centeno LPN Attempted to reach patient with no answer and unable to leave a message. Vitamin d script has been sent. If her cough/wheeze is persistent we can order a lung CT since she is due for routine lung CT monitoring giving her smoking history. Let me know if she feels further testing is needed. Pt called and is notified of providers results and instructions. Pt voices understanding. Pt couldn't remember who she was told to go to for Nephrology. Per the Nephrology consult, Pt didn't want to travel to [facility] or any other location. Faxed over orders to [facility] (Dr. Ochoa). . I assume orders have already been sent over, so let Pt know [facility] should be calling her, or let her know she could call in to schedule. Pt states she isn't taking any supplements or anything with Vit D in it. Edilia Paige RN Please call patient and let her know that chest xray was with out issues, labs show blood counts, liver, electrolytes, thyroid, iron, b12, hgba1c levels all stable, no issues. Kidney function is slightly elevated, at this point she is considered chronic kidney disease stage 3 and has already been referred to nephrology per patient request, vitamin d is low so please see if she is taking any supplement that might not be listed. Cholesterol is a little high but overall stable in comparison to past numbers. documented in this encounter [facility] 04-24-2023 Note HNO ID: [id number] Author: Marisa Ramos LPN Service: ? Author Type: ? Type: Progress Notes Filed: 04/24/2023 5:03 PM Note Text: Ambulatory Ear Lavage Pre-treatment: Carbamide Peroxide (i.e. Debrox) Treatment: Both ears Equipment and Irrigation solution and Volume used: Single use syringe with single use irrigation tip Water Total Irrigation Volume: 500 ml Return flow appearance: Debris Patient tolerated procedure: yes Tympanic membrane assessment: Tympanic membrane assessed by LIP pre and post procedure [facility] 04-24-2023 Note HNO ID: [id number] Author: Diamond King RT(Alejandra) Service: ? Author Type: Furniture Finisher Helper Type: Progress Notes Filed: 04/24/2023 3:55 PM Note Text: Radiology Service Progress Note PATIENT NAME: Echo Mascorro DATE OF SERVICE: April 24, 2023 TIME: 3:46 PM PATIENT IDENTITY VERIFICATION COMPLETED USING TWO (2) IDENTIFIERS: Name and Date of confirmed by patient verbally. FALL SCREENING: Has the patient had 2 falls in the last year or 1 fall with injury or currently using an Ambulatory Assistive Device (Walker, Cane, Wheelchair, Crutches, etc.)? No PATIENT GENDER DATA: Female. status: : No status: NO. PATIENT RELEVANT IMPLANT DATA REVIEWED: Yes RADIOLOGY DEPARTMENT: General X-ray: Exam(s) Completed: Chest X-Ray PERIPHERAL IV DATA: Not applicable SIGNED BY: RT Diandra(R) April 24, 2023 3:46 PM [facility] 04-24-2023 Note HNO ID: [id number] Author: Nora Mccray APRN.LOAN ASSOCIATE Service: ? Author Type: Nurse Practitioner Type: Progress Notes Filed: 04/24/2023 4:47 PM Note Text: SUBJECTIVE Echo Mascorro is a 67 year old female here today for a check up on her medical problems. Chief Complaint Patient presents with: Ear Problem Consult: would like to see PT for her feet for neuropathy and upper left thigh pain no injury HPI Echo Mascorro is a 67 year old female. Here today to have her bilateral ears flushed, has completed x1 week of debrox. Feels ears are plugged up. Also with concerns of wanting orders for PT, left leg pain, no injury, Neuropathy bothers her. Notes some general weakness. Also at times feels wheezing in her throat, maybe some drainage. She denies any chest pain, chest tightness. Cough at times. Would like to have routine labs checked. Her medications were reviewed today and her list is now up to date. Medications Current Outpatient Medications Medication Sig carbamide peroxide (DEBROX) 6.5 % otic solution Use 5 Drops in both ears twice daily. gabapentin (NEURONTIN) 400 mg capsule Take 1 capsule by mouth three times daily for 90 days. nicotine (NICODERM) 14 mg/24 hr Apply 1 Patch as directed every 24 hours. x 2 weeks, then decrease to 7 mg patch carvedilol (COREG) 6.25 mg tablet TWICE A DAY lisinopril 2.5 mg tablet DAILY DULoxetine (CYMBALTA) 30 mg capsule Take 1 capsule by mouth once daily. pantoprazole DR (PROTONIX) 40 mg tablet Take 1 tablet by mouth twice daily. clopidogrel (PLAVIX) 75 mg tablet Take 1 tablet by mouth once daily. famotidine (PEPCID) 40 mg tablet Take 1 tablet by mouth once daily. albuterol HFA (PROVENTIL HFA, VENTOLIN HFA) 90 mcg/actuation inhaler Inhale 2-4 Puffs as instructed every 2 hours as needed for wheezing/shortness of breath. amiodarone (PACERONE) 200 mg tablet Take 200 mg by mouth twice daily. atorvastatin (LIPITOR) 40 mg tablet Take 40 mg by mouth daily at bedtime. furosemide (LASIX) 20 mg tablet Take 20 mg by mouth twice daily. PARoxetine (PAXIL) 40 mg tablet ondansetron orally disintegrating (ZOFRAN ODT) 4 mg disintegrating tablet Take 1 tablet by mouth every 6 hours as needed for nausea/vomiting. docusate sodium (COLACE) 100 mg capsule Take 1 capsule by mouth twice daily as needed for constipation. LORazepam (ATIVAN) 1 mg tablet Take 1 tablet by mouth every 6 hours as needed. Per counseling center nicotine (NICODERM) 21 mg/24 hr Apply 1 Patch as directed every 24 hours. x 6 weeks, then decrease to the 14 mg patch nicotine (NICODERM) 7 mg/24 hr Apply 1 Patch as directed every 24 hours. tiotropium bromide (SPIRIVA RESPIMAT) 2.5 mcg/actuation inhaler Inhale 2 Puffs as instructed once daily. Inhale two puffs once daily. sucralfate (CARAFATE) 1 gram tablet Take 1 tablet by mouth before meals and at bedtime. (Patient not taking: Reported on 04/24/2023) benzonatate (TESSALON PERLES) 100 mg capsule Take 1 capsule by mouth three times daily as needed for cough. (Patient not taking: Reported on 01/13/2023) nystatin (MYCOSTATIN) 100,000 unit/mL suspension Take 5 mL by mouth four times daily. 1tsp swish in mouth for several minutes, then swallow (or expectorate) 4 times daily until gone. (Patient not taking: Reported on 04/24/2023) umeclidinium-vilanterol (ANORO ELLIPTA) 62.5-25 mcg/actuation inhaler Inhale 1 Inhalation as instructed once daily. (Patient not taking: Reported on 01/13/2023) Diaper,Brief, Adult,Disposable (DEPEND EASY FIT UNDERGARMENTS) misc Size Medium pull up. Change depends once every 1-2 hrs. Dx incontinence (788.30) Prolapsed bladder (618.01) No current facility-administered medications for this visit. ALLERGIES No Known Allergies ACTIVE PROBLEM LIST Sanchez's Esophagus - 08/21/2016 (A priority) Mixed Hyperlipidemia - 07/10/2014 (A priority) Anxiety (A priority) Comment: Per counseling center Depression (A priority) Gerd (Gastroesophageal Reflux Disease) (A priority) COPD (chronic obstructive pulmonary disease) (A priority) Essential Hypertension, Benign (A priority) Comment: Sees Dr. Best Heart Palpitations - 09/29/2016 (B priority) Comment: Event monitor with occasional increased HR but not associated with symptoms. 09/2016 Smoker - 12/28/2015 (C priority) Diverticulosis - 03/20/2015 (C priority) Bladder prolapse, female, acquired - 10/04/2014 (C priority) Stress Incontinence, Female - 07/07/2014 (C priority) Symptomatic Menopausal Or Female Climacteric States - 12/30/2005 (C priority) Chronic Pain (M priority) Comment: low back, sees pain MGT: Dr. Nayak Lumbago - 12/30/2005 (M priority) Diabetes Mellitus (Hcc) - 01/13/2023 Cardiomyopathy in Disease Classified Elsewhere (Hcc) - 01/13/2023 Supraventricular Tachycardia (Hcc) - 01/13/2023 Oab (Overactive Bladder) - 02/18/2019 Elevated Plasma Metanephrines - 03/17/2018 Hyperthyroidism - 03/17/2018 High Catecholamines - 07 (more content not included)... [facility] 04-24-2023 Miscellaneous Notes In review of patient chart, she was seen in office 04/15/23 with Andrew Mccray. Closing encounter as nothing further at this time. JERRI Tay See below. Appears she was admitted from [facility] perhaps, did address in my office note in Jan 13 2023. Check to see if addressed at [facility]. My addendum to note 01/15/2023: ADD: January 15, 2023 Message from daughter indicating interest in SNF. Will place consult for SW. If admitted /ER visit again would endorse seeing SW at [facility], referral to SNF from hospital. Lyndsey Chappell APRN.CNS She returned to ER [facility] 01/14/2023 and 01/16/2023. I did reach out to our executive secretary social welfare. Her note 01/15/2023 excerpted: Sw spoke with patient daughter Marleny in regards to patient needing either SNF or Assisted Living. Marleny notes that patient has been in and out of hospital lately. Patient had cameron declining SNF/AL and Marleny notes that she is now open to going to a facility. Sw discussed with daughter if patient has eye care professional through [facility]. Marleny notes that she is not sure if patient has a eye care professional through [facility]. Sw encouraged Marleny to check to see as a eye care professional through [facility] could help with assisting patient with admit to AL. They could also help with level of care assessment to see if patient would qualify for SNF or AL. Sw provided Marleny with [facility] number to reach out and explore care services. Tiffani noted different SNF/Al such as [facility], [facility], [facility]. Discussed [facility] Older Adult Guide on their website. Marleny notes that she does not know about the different SNF/AL in the community. Tiffani noted that the Older Adult Resource Guide has listing in the back of the different facilities. Marleny notes that will be helpful in regards to looking at different facility options for patient. Marleny states that she will start with [facility] and see what help they can provide her with facilities and then also look at and reach out to facilities admission office to see about cost and openings. Marleny notes that she will let this Sw know about further assistance needs. Sw will follow up with patient daughter beginning of next week to see what she has been able to find out for patient. We have not seen her since January. She does have an appointment in April with Nora. Charlene from [facility] states pt has been in a care home facility since 01/18/23 however [facility] does mot have an authorization on file. Pt was not authorized prior to going in to facility. Charlene is requesting provider to add to med record notes why pt needs skilled nsg services & how long pt it expected to be in facility. Maureen Hassan LPN documented in this encounter [facility] 04-17-2023 Miscellaneous Notes OK Echo Vale Mascorro is calling Nora Mccray APRN.LOAN ASSOCIATE today with concern regarding the ear drops that were sent to [facility] have not been filled and patient stating that it should be resent please to [facility] [place] [facility] the pharmacy is [facility] Call pharmacy [phone] Note: I have loaded that pharmacy in patient chart Patient also stating that she was to start the eardrops Thursday and today she still does not have that RX. Patient has been identified by name and birthdate. Duration of symptoms: days Person calling: self Call patient at: on cell [phone] (home) [phone] (cell) Was an appointment scheduled: No Closing statement: Results or non-symptom based questions: Thank you for calling [facility], your call will be returned within the next business day. Amber Le documented in this encounter [facility] 04-16-2023 Miscellaneous Notes Margaret-nurse at [facility] calling to request patient's recent OV note with Nora Mccray CNP from 04/15/23 be faxed to her. Patient currently resides there. Faxed as requested to [phone]. Elsy Sanz RN documented in this encounter [facility] 04-15-2023 Note HNO ID: [id number] Author: Nora Mccray APRN.LOAN ASSOCIATE Service: ? Author Type: Nurse Practitioner Type: Progress Notes Filed: 04/15/2023 4:51 PM Note Text: SUBJECTIVE Echo Mascorro is a 67 year old female here today for a check up on her medical problems. Chief Complaint Patient presents with: F/U 3 Month HPI Echo Mascorro is a 67 year old female established patient. She notes today that her right ear is feeling clogged. Would like it checked. She is planning to see TERESSA, Friend, due to her epigastric pain. Appointment coming up. Still having a lot of neuropathy pain, bad pain in her feet and lower legs. Taking her gabapentin and is on Cymbalta. Concerns about her kidneys. Would like to see a oxygraph operator. Currently in a nursing facility? Her medications were reviewed today and her list is now up to date. Medications Current Outpatient Medications Medication Sig nicotine (NICODERM) 21 mg/24 hr Apply 1 Patch as directed every 24 hours. x 6 weeks, then decrease to the 14 mg patch nicotine (NICODERM) 14 mg/24 hr Apply 1 Patch as directed every 24 hours. x 2 weeks, then decrease to 7 mg patch nicotine (NICODERM) 7 mg/24 hr Apply 1 Patch as directed every 24 hours. carvedilol (COREG) 6.25 mg tablet TWICE A DAY lisinopril 2.5 mg tablet DAILY DULoxetine (CYMBALTA) 30 mg capsule Take 1 capsule by mouth once daily. pantoprazole DR (PROTONIX) 40 mg tablet Take 1 tablet by mouth twice daily. clopidogrel (PLAVIX) 75 mg tablet Take 1 tablet by mouth once daily. tiotropium bromide (SPIRIVA RESPIMAT) 2.5 mcg/actuation inhaler Inhale 2 Puffs as instructed once daily. Inhale two puffs once daily. sucralfate (CARAFATE) 1 gram tablet Take 1 tablet by mouth before meals and at bedtime. famotidine (PEPCID) 40 mg tablet Take 1 tablet by mouth once daily. nystatin (MYCOSTATIN) 100,000 unit/mL suspension Take 5 mL by mouth four times daily. 1tsp swish in mouth for several minutes, then swallow (or expectorate) 4 times daily until gone. albuterol HFA (PROVENTIL HFA, VENTOLIN HFA) 90 mcg/actuation inhaler Inhale 2-4 Puffs as instructed every 2 hours as needed for wheezing/shortness of breath. amiodarone (PACERONE) 200 mg tablet Take 200 mg by mouth twice daily. atorvastatin (LIPITOR) 40 mg tablet Take 40 mg by mouth daily at bedtime. furosemide (LASIX) 20 mg tablet Take 20 mg by mouth twice daily. PARoxetine (PAXIL) 40 mg tablet ondansetron orally disintegrating (ZOFRAN ODT) 4 mg disintegrating tablet Take 1 tablet by mouth every 6 hours as needed for nausea/vomiting. docusate sodium (COLACE) 100 mg capsule Take 1 capsule by mouth twice daily as needed for constipation. Diaper,Brief, Adult,Disposable (DEPEND EASY FIT UNDERGARMENTS) misc Size Medium pull up. Change depends once every 1-2 hrs. Dx incontinence (788.30) Prolapsed bladder (618.01) LORazepam (ATIVAN) 1 mg tablet Take 1 tablet by mouth every 6 hours as needed. Per counseling center gabapentin (NEURONTIN) 400 mg capsule Take 1 capsule by mouth three times daily for 90 days. carbamide peroxide (DEBROX) 6.5 % otic solution Use 5 Drops in both ears twice daily. benzonatate (TESSALON PERLES) 100 mg capsule Take 1 capsule by mouth three times daily as needed for cough. (Patient not taking: Reported on 01/13/2023) umeclidinium-vilanterol (ANORO ELLIPTA) 62.5-25 mcg/actuation inhaler Inhale 1 Inhalation as instructed once daily. (Patient not taking: Reported on 01/13/2023) No current facility-administered medications for this visit. ALLERGIES No Known Allergies ACTIVE PROBLEM LIST Sanchez's Esophagus - 08/21/2016 (A priority) Mixed Hyperlipidemia - 07/10/2014 (A priority) Anxiety (A priority) Comment: Per counseling center Depression (A priority) Gerd (Gastroesophageal Reflux Disease) (A priority) COPD (chronic obstructive pulmonary disease) (A priority) Essential Hypertension, Benign (A priority) Comment: Sees Dr. Best Heart Palpitations - 09/29/2016 (B priority) Comment: Event monitor with occasional increased HR but not associated with symptoms. 09/2016 Smoker - 12/28/2015 (C priority) Diverticulosis - 03/20/2015 (C priority) Bladder prolapse, female, acquired - 10/04/2014 (C priority) Stress Incontinence, Female - 07/07/2014 (C priority) Symptomatic Menopausal Or Female Climacteric States - 12/30/2005 (C priority) Chronic Pain (M priority) Comment: low back, sees pain MGT: Dr. Nayak Lumbago - 12/30/2005 (M priority) Diabetes Mellitus (Hcc) - 01/13/2023 Cardiomyopathy in Disease Classified Elsewhere (Hcc) - 01/13/2023 Supraventricular Tachycardia (Hcc) - 01/13/2023 Oab (Overactive Bladder) - 02/18/2019 Elevated Plasma Metanephrines - 03/17/2018 Hyperthyroidism - 03/17/2018 High Catecholamines - 03/17/2018 Tremor - 06/24/2017 Memory Difficulties - 06/24/2017 Neoplasm of Uncertain Behavior of Back - 12/22/2016 Right Sided Abdominal Pain - 08/21/2016 Visual Disturbances (more content not included)... [facility] 01-19-2023 Note HNO ID: [id number] Author: GEORGETTE Khanna Service: ? Author Type: Window Tinter Type: Progress Notes Filed: 01/19/2023 12:14 PM Note Text: Tiffani spoke with patient daughter Marleny and she reports that [facility] was [facility]. [facility] 01-19-2023 History of Present illness Narrative Tiffani spoke with patient daughter Marleny and she reports that patient was admitted [facility] this past [facility]. Tiffani called patient to discuss referral request referral regarding SNF. No answer on home phone. Mobile phone rings and no vmail to leave message. documented in this encounter [facility] 01-16-2023 Miscellaneous Notes PATIENT's daughter NOTIFIED OF SAME. Noted. Prescription sent per request. Previously provided with Nicotrol nasal spray, confirm not also using that Pt's daughter Marleny calling with patient. Marleny states patient will be admitting to [facility] this afternoon, which does not allow smoking and pt is a smoker. Marleny calling to ask if Lyndsey LOCKWOOD would send script for nicotine patches for pt to [facility]? Please call Marleny with any updates. [phone]. Thank you. documented in this encounter [facility] 01-15-2023 Miscellaneous Notes Noted Tiffani spoke with patient daughter Marleny in regards to patient needing either SNF or Assisted Living. Marleny notes that patient has been in and out of hospital lately. Patient had cameron declining SNF/AL and Marleny notes that she is now open to going to a facility. Tiffani discussed with daughter if patient has eye care professional through [facility]. Marleny notes that she is not sure if patient has a eye care professional through [facility]. Tiffani encouraged Marleny to check to see as a eye care professional through [facility] could help with assisting patient with admit to AL. They could also help with level of care assessment to see if patient would qualify for SNF or AL. Tiffani provided Marleny with [facility] number to reach out and explore care services. Tiffani noted different SNF/Al such as [facility], [facility], [facility]. Discussed [facility] Older Adult Guide on their website. Marleny notes that she does not know about the different SNF/AL in the community. Tiffani noted that the Older Adult Resource Guide has listing in the back of the different facilities. Marleny notes that will be helpful in regards to looking at different facility options for patient. Marleny states that she will start with [facility] and see what help they can provide her with facilities and then also look at and reach out to facilities admission office to see about cost and openings. Marleny notes that she will let this Sw know about further assistance needs. Sw will follow up with patient daughter beginning of next week to see what she has been able to find out for patient. documented in this encounter [facility] 01-15-2023 Note HNO ID: [id number] Author: GEORGETTE Khanna Service: ? Author Type: Window Tinter Type: Progress Notes Filed: 01/19/2023 12:14 PM Note Text: Sw called patient to discuss referral request referral regarding SNF. No answer on home phone. Mobile phone rings and no vmail to leave message. [facility] 01-13-2023 Note HNO ID: [id number] Author: Lyndsey Chappell APRN.CALL CENTER SUPPORT REPRESENTATIVE Service: ? Author Type: Nurse Specialist Type: Progress Notes Filed: 01/15/2023 8:30 AM Note Text: Transitional Care Management Progress Note The patients TCM visit was performed within the 14 days of discharge. Patient's Date of discharge: 01/04/2023 Date of initial coordinator contact after discharge:01/05/2023 Discharge diagnosis: shortness of breath Medication review completed Yes Lyndsey Chappell APRN.CALL CENTER SUPPORT REPRESENTATIVE Provider Documentation: In follow-up of hospitalization, Echo Mascorro is a 67 year old female with the chief complaint of shortness of breath. I have reviewed the patient?s last hospital course including diagnostic testing performed during this hospitalization, their discharge medications, and my assessment and plan with the patient and any family members present at today?s visit. HPI: History of present illness excerpted from previous visit with me : Has had gastroenterology and express care visits. See yesterday phone encounter EP[facility]. Missed appointment, referred to ER for severe symptoms, rescheduled to today if not severe. No prior IM visits. [facility] Presents today for emergency department follow-up visit. She was seen at [facility] on August 23, 2022 for complaint of general illness. She reported nausea and cough. She reported vomiting. No black or bloody stools reported. Notes she is taking Xarelto and Plavix. No fever noted. No urinary symptoms. She reported anxiety. She has taken Ativan in the past but stated did not take any prior to her ER visit. Due to her history of cardiac disease EKG was completed which showed sinus rhythm with normal ventricular rate and no ischemic changes. Chest x-ray completed no acute cardiopulmonary process. CBC and metabolic panel unremarkable. Troponin negative. Urinalysis negative. She was treated with Zofran and Ativan and felt improved. She was discharged home in stable condition. Impression nausea vomiting generalized weakness and anxiety. [facility], Dustin Chopra Today reports epigastric pain and lower abdominal pain. Reports present for months. Heartburn: She reports daily Reflux: She notes occasional Abdominal pain: Epigastric and lower abdominal, notes with epigastric discomfort and nausea discomfort can radiate to her left shoulder Nausea: Yes Vomiting: No Diarrhea: No Constipation: Yes, BM 2 times per week, take stool softener as needed 2/day BRBPR: no Black tarry:no Notes occasionally feels like something caught in lower esophagus. No reported aspiration. States has had remote EGD, colonoscopy. CC EGD 2015 showed Nemesio Grade III reflux esophagitis Presents today on her own, no SO at visit. Poor historian. Notes breathing is improved. Notes continued epigastric discomfort. Review of outside records indicate that she was admitted January 02 through January 04, 2023 for shortness of breath and chest pain. She reported increasing shortness of breath and chest pain for 4 to 5 days prior to arrival. In the emergency department she was wheezing and tachypneic. She was treated with methylprednisolone and albuterol. Labs were obtained and troponin came back elevated. She was treated with aspirin and hospitalist was consulted for admission. Cardiac consult was placed. She was continued on home Xarelto. Noted to be poor historian. She underwent testing which included echocardiogram unchanged from previous with an ejection fraction of 20%. Noted to have LV thrombus. Discussion with her and her son indicates she has not been taking her medications. Cardiac evaluation and did not feel chest pain was cardiac in nature. Review of records shows LV thrombus and anticoagulation with plan to discharge with Xarelto and Plavix which she had been supposed to be taking in combination previously. Prior history of abdominal aorta with mural superficial thrombus. Outside record review shows history of grade 3 distal esophagitis on EGD September 13, 2019 with mild gastritis and possible history of Sanchez's esophagus. Not compliant with this medication recently as well. She did get better with PPI and sucralfate. She was advised to continue on PPI twice daily and follow-up with gastroenterology as an outpatient. She has previously had multiple outpatient test scheduled for further evaluation of her pain and swelling but has not come to many of these appointments. Does not appear esophagram previous order was completed. CT of 2019 consistent with terminal ileitis and recommended gastroenterology follow-up to rule out Crohn's disease. She was discharged feeling improved. Medications at discharge prednisone 40 mg daily x4 days, duloxetine 30 mg capsule once daily, Spiriva Respimat 2 puffs daily, albuterol 90 mcg speculations aerosol powder 2 inhalations every 4 hours as (more content not included)... [facility] 01-13-2023 Instructions Lyndsey Chappell APRN.CNS - 01/13/2023 3:05 PM EDT Please take your medications as ordered. These have been sent to [facility] for you today Be sure to increase your pantoprazole from once a day to twice a day. Add sucralfate before meals and at bedtime for now until gone. Please make an appointment with the following providers: 1-[facility], Alessio Cook in 1 week for hospital follow-up [phone] 2- Dr Martinez industrial technologist 3-Dr Don Dias -finished metal repairer 4- Vascular doctor documented in this encounter [facility] 01-13-2023 History of Present illness Narrative Transitional Care Management Progress Note The patients TCM visit was performed within the 14 days of discharge. Patient's Date of discharge: 01/04/2023 Date of initial coordinator contact after discharge:01/05/2023 Discharge diagnosis: shortness of breath Medication review completed Yes Lyndsey Chappell APRN.CNS Provider Documentation: In follow-up of hospitalization, Echo Mascorro is a 67 year old female with the chief complaint of shortness of breath. I have reviewed the patient s last hospital course including diagnostic testing performed during this hospitalization, their discharge medications, and my assessment and plan with the patient and any family members present at today s visit. HPI: History of present illness excerpted from previous visit with me : Has had gastroenterology and [facility] care visits. See yesterday phone encounter EPIC. Missed appointment, referred to ER for severe symptoms, rescheduled to today if not severe. No prior IM visits. Cardiology: [facility], João Durham CNP. Presents today for emergency department follow-up visit. She was seen at [facility] on August 23, 2022 for complaint of general illness. She reported nausea and cough. She reported vomiting. No black or bloody stools reported. Notes she is taking Xarelto and Plavix. No fever noted. No urinary symptoms. She reported anxiety. She has taken Ativan in the past but stated did not take any prior to her ER visit. Due to her history of cardiac disease EKG was completed which showed sinus rhythm with normal ventricular rate and no ischemic changes. Chest x-ray completed no acute cardiopulmonary process. CBC and metabolic panel unremarkable. Troponin negative. Urinalysis negative. She was treated with Zofran and Ativan and felt improved. She was discharged home in stable condition. Impression nausea vomiting generalized weakness and anxiety. [facility] [address] Today reports epigastric pain and lower abdominal pain. Reports present for months. Heartburn: She reports daily Reflux: She notes occasional Abdominal pain: Epigastric and lower abdominal, notes with epigastric discomfort and nausea discomfort can radiate to her left shoulder Nausea: Yes Vomiting: No Diarrhea: No Constipation: Yes, BM 2 times per week, take stool softener as needed 2/day BRBPR: no Black tarry:no Notes occasionally feels like something caught in lower esophagus. No reported aspiration. States has had remote EGD, colonoscopy. EGD 2015 showed Nemesio Grade III reflux esophagitis Presents today on her own, no SO at visit. Poor historian. Notes breathing is improved. Notes continued epigastric discomfort. Review of outside records indicate that she was admitted January 02 through January 04, 2023 for shortness of breath and chest pain. She reported increasing shortness of breath and chest pain for 4 to 5 days prior to arrival. In the emergency department she was wheezing and tachypneic. She was treated with methylprednisolone and albuterol. Labs were obtained and troponin came back elevated. She was treated with aspirin and hospitalist was consulted for admission. Cardiac consult was placed. She was continued on home Xarelto. Noted to be poor historian. She underwent testing which included echocardiogram unchanged from previous with an ejection fraction of 20%. Noted to have LV thrombus. Discussion with her and her son indicates she has not been taking her medications. Cardiac evaluation and did not feel chest pain was cardiac in nature. Review of records shows LV thrombus and anticoagulation with plan to discharge with Xarelto and Plavix which she had been supposed to be taking in combination previously. Prior history of abdominal aorta with mural superficial thrombus. Outside record review shows history of grade 3 distal esophagitis on EGD September 13, 2019 with mild gastritis and possible history of Sanchez's esophagus. Not compliant with this medication recently as well. She did get better with PPI and sucralfate. She was advised to continue on PPI twice daily and follow-up with gastroenterology as an outpatient. She has previously had multiple outpatient test scheduled for further evaluation of her pain and swelling but has not come to many of these appointments. Does not appear esophagram previous order was completed. CT of 2018 consistent with terminal ileitis and recommended gastroenterology follow-up to rule out Crohn's disease. She was discharged feeling improved. Medications at discharge prednisone 40 mg daily x4 days, duloxetine 30 mg capsule once daily, Spiriva Respimat 2 puffs daily, albuterol 90 mcg speculations aerosol powder 2 inhalations every 4 hours as needed, doxycycline 100 mg oral twice daily x4 days. She was continued on lorazepam 1 mg as needed, gabapentin 300 mg 3 times daily, atorvastatin 40 mg daily, carvedilol 6.25 mg oral twice daily, super fate 10 mL oral every 4 hours x2 weeks, clopidogrel 75 mg oral daily, frusemide twice daily rivaroxaban 20 mg daily, Zofran 4 mg as needed, nicotine nasal spray 1 spray daily. Amiodarone 200 mg oral daily, pantoprazole 40 mg twice daily lisinopril 2.5 mg oral daily. Pantoprazole 40 mg twice daily, increased from QD Sucralfate was ordered. Paroxetine was discontinued and Cymbalta or duloxetine was started. Taking: States is taking Using inhaler, taking prednisone and doxycycline: States has take medications as ordered Gastroenterology follow-up: Has not scheduled Follow-up with gasoline locomotive crane operator. Has not scheduled Follow-up with finished metal repairer. Has not scheduled PAST MEDICAL HISTORY: Reviewed and updated ALLERGIES: Reviewed and updated MEDICATIONS: Reviewed and updated SOCIAL HISTORY: Reviewed and updated FAMILY HISTORY: Reviewed and updated REVIEW OF SYSTEMS: GENERAL: No weight loss, malaise or fevers. RESPIRATORY: Negative for cough, shortness of breath CARDIOVASCULAR: Negative for chest pain GI: Positive for epigastric pain The remainder of the review of systems is negative. All other systems reviewed and negative, other than HPI. PHYSICAL EXAMINATION BP 118/84 Pulse 83 Resp 16 Wt 183 lb (83.0kg) SpO2 97% General appearance: alert, in no acute distress, and well-hydrated, well nourished, motor and sensory appear to be normal Lungs: clear to auscultation no wheezing or rhonchi Heart: RRR without murmur, gallop, or rubs. No ectopy Abdomen: Abdomen soft, mild TTP epigastric, otherwise non tender Bowel sounds normal. No masses, organomegaly Extremities: no edema 1. I have reviewed the patient record including associated test results during the last hospitalization Yes 2. I have reviewed Lab test Yes 3. I have reviewed Radiology test Yes 4. I reviewed assessment/plan with the patient/family member Yes ASSESSMENT/PLAN ASSESSMENT/PLAN: 1. Shortness of breath - ICD9: 786.05, ICD10: R06.02 (primary diagnosis) 2. Epigastric pain - ICD9: 789.06, ICD10: R10.13 - PANTOPRAZOLE 40 MG TABLET,DELAYED RELEASE - SUCRALFATE 1 GRAM TABLET 3. Type 2 diabetes mellitus with other specified complication, without long-term current use of insulin (HCC) - ICD9: 250.80, ICD10: E11.69 4. Cardiomyopathy in disease classified elsewhere (HCC) - ICD9: 425.8, ICD10: I43 5. Supraventricular tachycardia (HCC) - ICD9: 427.89, ICD10: I47.1 6. Acute exacerbation of chronic obstructive pulmonary disease (COPD) (HCC) - ICD9: 491.21, ICD10: J44.1 7. LV (left ventricular) mural thrombus - ICD9: 410.90, ICD10: I51.3 8. Chest pain, unspecified type - ICD9: 786.50, ICD10: R07.9 9. NSTEMI (non-ST elevated myocardial infarction) ([facility]) - ICD9: 410.70, ICD10: I21.4 10. HFrEF (heart failure with reduced ejection fraction) ([facility]) - ICD9: 428.20, ICD10: I50.20 11. Gastroesophageal reflux disease, unspecified whether esophagitis present - ICD9: 530.81, ICD10: K21.9 She was continued on treatments unchanged from discharge. Not certain that she is increased her PPI from daily to twice daily. Refill sent to pharmacy. She has made no appointments since discharge, in need of cardiology pulmonology and gastroenterology. She was noted to have an LV thrombus, she was continued on Xarelto and Plavix. She needs to be followed up with [facility] [place] [facility] and have follow up echocardiogram regarding her thrombus. Continues with epigastric pain, will continue with PPI twice daily as prescribed at discharge and add Carafate for now. Needs to schedule appointment with Dr. Martinez. COPD exacerbation, recommend follow-up with finished metal repairer. 3 mo.fu Lyndsey Chappell APRN.MANDIE or Nora Mccray CNP. 6 mo follow up Gabriel Galvan MD. Lyndsey Chappell APRN.CNS January 13, 2023 8:01 AM documented in this encounter [facility] 01-05-2023 Note Patient Outreach (IN TMWS) ECHO MASCORRO ([id number]) 1955 F CHT Date Time Provider Department 01/05/23 GABRIEL GALVAN INTMWS During your visit today, we recorded the following information about you: Danna Centeno LPN 01/05/2023 10:38 AM Signed TRANSITION CARE MANAGEMENT (TCM) INITIAL CONTACT Poultry [employer]eder Outreach Provider Action/FYI: Spoke with pt. Pt was d/c from the hospital yesterday 01-04-23 and she is asking for something for her cough. They did not give her anything when she was released from the hospital Initial contact with patient post discharge, spoke to patient. Patient identified by name and . TRANSITION CARE MANAGEMENT INITIAL OUTREACH DOCUMENTATION: Date of Outreach: 01/05/2023 Outreach Attempt 1: Contact Made Date of Discharge 01/04/2023 Some recent data might be hidden SUMMARY: -Pt discharged from [facility] on 01/04/23. -Admitted for: Shortness of breath Do you have a hospital follow up appointment with your PCP? Appointment on 01-08-23 with Annamarie Lopez NP. No. Assist patient with follow-up appointment within 1-14 calendar days from discharge date. If patient prefers not to schedule follow-up appointment at this time, notify PCP. MEDICATIONS: Many patients have questions or concerns about their medications once they are home. Were you prescribed any new medications? If yes, what are those medications? Cymbalta Were you told to hold any medications? No Were any of your medications discontinued? If yes, what are those medications? Paxil Do you have any questions about getting or taking your medications? No Your discharge instructions/After visit Summary (AVS) are important in guiding you through the recovery process. Is there anything I might help you understand? No Do you have all the necessary equipment and supplies at home? Yes Medical records from recent hospitalization: [facility] records have been copied and will deliver to nurse Allergies As of Date: 01/05/2023 (No Known Allergies) Date Reviewed: 09/23/2022 Reviewed by: Nora Mccray APRN.LOAN ASSOCIATE - Fully Assessed Reason for Visit: Transition Of Care [4074] Order(s):benzonatate (TESSALON PERLES) 100 mg capsuleTake 1 capsule by mouth three times daily as needed for cough.Disp: 30 capsuleRfl: 0 Prescriptions as of 01/05/2023 - benzonatate (TESSALON PERLES) 100 mg capsule Take 1 capsule by mouth three times daily as needed for cough. - famotidine (PEPCID) 40 mg tablet Take 1 tablet by mouth once daily. - pantoprazole DR (PROTONIX) 40 mg tablet Take 1 tablet by mouth once daily. - nystatin (MYCOSTATIN) 100,000 unit/mL suspension Take 5 mL by mouth four times daily. 1tsp swish in mouth for several minutes, then swallow (or expectorate) 4 times daily until gone. - umeclidinium-vilanterol (ANORO ELLIPTA) 62.5-25 mcg/actuation inhaler Inhale 1 Inhalation as instructed once daily. - albuterol HFA (PROVENTIL HFA, VENTOLIN HFA) 90 mcg/actuation inhaler Inhale 2-4 Puffs as instructed every 2 hours as needed for wheezing/shortness of breath. - amiodarone (PACERONE) 200 mg tablet Take 200 mg by mouth twice daily. - atorvastatin (LIPITOR) 40 mg tablet Take 40 mg by mouth daily at bedtime. - clopidogrel (PLAVIX) 75 mg tablet - furosemide (LASIX) 20 mg tablet Take 20 mg by mouth twice daily. - PARoxetine (PAXIL) 40 mg tablet - rivaroxaban (XARELTO) 20 mg tablet Take by mouth. - ondansetron orally disintegrating (ZOFRAN ODT) 4 mg disintegrating tablet Take 1 tablet by mouth every 6 hours as needed for nausea/vomiting. - sucralfate (CARAFATE) 1 gram tablet Take 1 tablet by mouth before meals and at bedtime. - docusate sodium (COLACE) 100 mg capsule Take 1 capsule by mouth twice daily as needed for constipation. - lisinopril (ZESTRIL, PRINIVIL) 20 mg tablet Take 1 tablet by mouth twice daily. - gabapentin (NEURONTIN) 300 mg capsule - Diaper,Brief, Adult,Disposable (DEPEND EASY FIT UNDERGARMENTS) [facility] Size Medium pull up. Change depends once every 1-2 hrs. Dx incontinence (788.30) Prolapsed bladder (618.01) - LORazepam (ATIVAN) 1 mg tablet Take 1 tablet by mouth every 6 hours as needed. Per counseling center Problem List As Of Date 01/05/2023 Noted Resolved Essential hypertension, benign [I10] Lumbago [M54.50] 12/30/2005 Symptomatic menopausal or female climacteric st*12/30/2005 Anxiety [F41.9] Depression [F32.A] GERD (gastroesophageal reflux disease) [K21.9] Chronic pain [G89.29] COPD (chronic obstructive pulmonary disease) [J* Routine gynecological examination [Z01.419] 06/05/2014 09/23/2022 Well adult exam [Z00.00] 06/05/2014 09/23/2022 Stress incontinence, female [N39.3] 07/07/2014 Mixed hyperlipidemia [E78.2] 07/10/2014 Bladder prolapse, female, acquired [N81.10] 10/04/2014 Diverticulosis [K57.90] 03/20/2015 Smoker [F17.200] 12/28/2015 Epigastric pain [R10.13] more content not included)... [facility] 01-05-2023 Miscellaneous Notes Benzonatate sent Spoke with pt and she was released from the hospital yesterday 12-25-22. She is requesting something for cough. They did not give her anything was she was released. Her Hospital FU is not until 01-08-23 with Lyndsey Chappell. Please advise pt. Danna Centeno LPN documented in this encounter [facility] 01-05-2023 Note HNO ID: [id number] Author: Danna Centeno LPN Service: ? Author Type: ? Type: Progress Notes Filed: 01/05/2023 10:38 AM Note Text: TRANSITION CARE MANAGEMENT (TCM) INITIAL CONTACT [employer] Outreach Provider Action/FYI: Spoke with pt. Pt was d/c from the hospital yesterday 01-04-23 and she is asking for something for her cough. They did not give her anything when she was released from the hospital Initial contact with patient post discharge, spoke to patient. Patient identified by name and . TRANSITION CARE MANAGEMENT INITIAL OUTREACH DOCUMENTATION: Date of Outreach: 01/05/2023 Outreach Attempt 1: Contact Made Date of Discharge 01/04/2023 Some recent data might be hidden SUMMARY: -Pt discharged from [facility] on 01/04/23. -Admitted for: Shortness of breath Do you have a hospital follow up appointment with your PCP? Appointment on 01-08-23 with Annamarie Lopez NP. No. Assist patient with follow-up appointment within 1-14 calendar days from discharge date. If patient prefers not to schedule follow-up appointment at this time, notify PCP. MEDICATIONS: Many patients have questions or concerns about their medications once they are home. Were you prescribed any new medications? If yes, what are those medications? Cymbalta Were you told to hold any medications? No Were any of your medications discontinued? If yes, what are those medications? Paxil Do you have any questions about getting or taking your medications? No Your discharge instructions/After visit Summary (AVS) are important in guiding you through the recovery process. Is there anything I might help you understand? No Do you have all the necessary equipment and supplies at home? Yes Medical records from recent hospitalization: [facility] records have been copied and will deliver to nurse [facility] 01-05-2023 History of Present illness Narrative TRANSITION CARE MANAGEMENT (TCM) INITIAL CONTACT [employer] Outreach Provider Action/FYI: Spoke with pt. Pt was d/c from the hospital yesterday 01-04-23 and she is asking for something for her cough. They did not give her anything when she was released from the hospital Initial contact with patient post discharge, spoke to patient. Patient identified by name and . TRANSITION CARE MANAGEMENT INITIAL OUTREACH DOCUMENTATION: Date of Outreach: 01/05/2023 Outreach Attempt 1: Contact Made Date of Discharge 01/04/2023 Some recent data might be hidden SUMMARY: -Pt discharged from [facility] on 01/04/23. -Admitted for: Shortness of breath Do you have a hospital follow up appointment with your PCP? Appointment on 01-08-23 with Annamarie Lopez NP. No. Assist patient with follow-up appointment within 1-14 calendar days from discharge date. If patient prefers not to schedule follow-up appointment at this time, notify PCP. MEDICATIONS: Many patients have questions or concerns about their medications once they are home. Were you prescribed any new medications? If yes, what are those medications? Cymbalta Were you told to hold any medications? No Were any of your medications discontinued? If yes, what are those medications? Paxil Do you have any questions about getting or taking your medications? No Your discharge instructions/After visit Summary (AVS) are important in guiding you through the recovery process. Is there anything I might help you understand? No Do you have all the necessary equipment and supplies at home? Yes Medical records from recent hospitalization: [facility] records have been copied and will deliver to nurse documented in this encounter [facility] 11-10-2022 Miscellaneous Notes Patient's son calls and notified of provider instructions. Son voices understanding. Linh Villalobos RN LEFT MESSAGE FOR PATIENT TO CALL OFFICE. He will need to go through the usual channels to obtain records. Can reschedule a visit if needed with PCP. Pts son Sanju called in and he reports they were at a hearing for his mother to state that she isn't able to stay at home alone. He says he got up and testified. He was calling and asked to get copies of her records showing her state of mind and health. He also said he had a list of her medications, and was asking if we would be able to print out the side effects of them for him to give to the courts. Looking under her Advanced Directives it looks like the Pt does not have a POA or Living Will on file. Please call and advise. documented in this encounter [facility] 11-06-2022 Miscellaneous Notes Patient has been identified by name and date of : Yes, Provider Date Time Pharmacy phones for refill(s): Requested Prescriptions Pending Prescriptions Disp Refills famotidine (PEPCID) 40 mg tablet 30 tablet 2 Sig: Take 1 tablet by mouth once daily. pantoprazole DR (PROTONIX) 40 mg tablet 30 tablet 2 Sig: Take 1 tablet by mouth once daily. Date of last office visit with pcp: Date of last office visit in primary care: 09/23/22 Last 2 Encounter Wt Readings: Date: Wt: 09/23/2022 83 kg (183 lb) 08/28/2022 83 kg (183 lb) Previous labs/tests for medication: Not applicable Please advise. Thank you. Hallie Gonzalez RN documented in this encounter [facility] 10-13-2022 Miscellaneous Notes Spoke with Marleny and Barby from [facility] had contacted her and Marleny will verify again with her about refilling the Xarelto. Verify patient was able to get connected with below caller so able to keep getting Xarelto Barby with [facility] at [facility] called and reports she was trying to get a hold of Pt and her son Sanju multiple times and was not able to. She states they fill their peripheral artery disease. I asked if she tried calling her daughter Marleny, and she had the number and said that may have been the only number they didn't call. She states she is going to try to call her. If they can't get a hold of her they will not be able to keep to keep refilling her Xarelto. documented in this encounter [facility] 10-03-2022 Miscellaneous Notes Could not get a hold of Pt, and shalom not let me leave a voice mail. Pts daughter called and is notified of providers message and instructions. She voices understanding, states to keep the appointment for Thursday. She works in the [employer] and will have her mother come in tomorrow and get her set up. Edilia Paige RN Can we call and see if she was seen any where last night and how symptoms are doing? If needed she could be seen on my 3:40 slot today to address only the tonsillitis/acute symptoms and then would need to keep Thursday appointment to address the memory/cognitive issues. Patient calling to ask about status of request for antibiotic. She states she needs it tonight. Advised Urgent Care evaluation. She says I'll just go to another ER . Hallie Gonzalez RN Pt called in and reports she went to the ER for nausea and tonsillitis and they didn't do anything for her. She states she has an appointment on Thursday with Nora Mccray CONSUMER SALES REPRESENTATIVE, but is asking if provider would give her an antibiotic until then. She states her tonsils are huge and she gets this all the time. They are sore and she is running a low grade temp. She states if she lets it go over the weekend she is afraid they will have to drain them. I offered her an appointment tomorrow with Lyndsey LOCKWOOD, and she said she is an old lady and she has a hard time getting a ride places. She reports she uses [facility] as her pharmacy. Please call and advise. documented in this encounter [facility] 10-01-2022 Miscellaneous Notes Sanju notified & r/s patient for Friday 10/06 @ 11:40 with approval. Nohemi Conley MA Left message to call office. 09/30/2022 3:13 PM Could be medication or mood related or due to another cause. Since not acute would be okay to wait until her follow up to discuss unless they feel she needs seen sooner then can move up appointment. Pt's son Samuel calls to report he is worried about pt. Son reports for the past couple of months each day as the day wears on pt's mind seems to get more foggy and she gets quiet/distant. Son reports it started here and there but now there is a consistency of daily. Son is asking what could be causing this. Son reports he has not mentioned this to pt but is ok if provider tells pt he is concerned and why. Son is asking if it could be medications or what else it could be. Pt has f/u appt 10/13/22. Hannah Modi LPN documented in this encounter [facility] 09-30-2022 Note HNO ID: [id number] Author: Pascale Bello RDMS Service: ? Author Type: Oil Sales And Service Rep Type: Progress Notes Filed: 09/30/2022 2:04 PM Note Text: Radiology Service Progress Note PATIENT NAME: Echo Mascorro DATE OF SERVICE: September 30, 2022 TIME: 2:04 PM PATIENT IDENTITY VERIFICATION COMPLETED USING TWO (2) IDENTIFIERS: Name and Date of confirmed by patient verbally. FALL SCREENING: Has the patient had 2 falls in the last year or 1 fall with injury or currently using an Ambulatory Assistive Device (Walker, Cane, Wheelchair, Crutches, etc.)? No PATIENT GENDER DATA: Female. status: : No status: NO. PATIENT RELEVANT IMPLANT DATA REVIEWED: Not Applicable RADIOLOGY DEPARTMENT: Ultrasound PERIPHERAL IV DATA: Not applicable SIGNED BY: Pascale Bello RDMS RVT September 30, 2022 2:04 PM [facility] 09-30-2022 History of Present illness Narrative Radiology Service Progress Note PATIENT NAME: Echo Mascorro DATE OF SERVICE: September 30, 2022 TIME: 2:04 PM PATIENT IDENTITY VERIFICATION COMPLETED USING TWO (2) IDENTIFIERS: Name and Date of confirmed by patient verbally. FALL SCREENING: Has the patient had 2 falls in the last year or 1 fall with injury or currently using an Ambulatory Assistive Device (Walker, Cane, Wheelchair, Crutches, etc.)? No PATIENT GENDER DATA: Female. status: : No status: NO. PATIENT RELEVANT IMPLANT DATA REVIEWED: Not Applicable RADIOLOGY DEPARTMENT: Ultrasound PERIPHERAL IV DATA: Not applicable SIGNED BY: Pascale Bello RDMS RVT September 30, 2022 2:04 PM documented in this encounter [facility] 09-30-2022 Miscellaneous Notes Plan to go over result at up coming follow up appointment 10/06, will likely refer to speciality if patient agreeable. documented in this encounter [facility] 09-24-2022 Miscellaneous Notes Pt called and is notified of providers results and instructions. Pt voices understanding. Edilia Paige RN Bridget. Please call patient and let them know recent labs looked stable and without problems, her calcium is a little bit on the high side so next labs we can check the parathyroid and thyroid numbers to makes sure no issues there. No changes needed at this time and to keep next scheduled appointment. Thanks. documented in this encounter [facility] 09-23-2022 Note HNO ID: [id number] Author: Nora Mccray APRN.LOAN ASSOCIATE Service: ? Author Type: Nurse Practitioner Type: Progress Notes Filed: 09/23/2022 3:40 PM Note Text: SUBJECTIVE Echo Mascorro is a 66 year old female here today for a check up on her medical problems. Chief Complaint Patient presents with: Establish Care Abdominal Pain: Patient states abdominal pain continues and unable to get into see GI until November and so did not take this appointment. Blood In Urine: was told had blood in urine HPI Echo Mascorro is a 66 year old female who presents today for follow up. She was seen 08/28 with Lyndsey Chappell for abdominal pain. Had been seen in ER for this at [facility] prior to appointment here. Issues with abdominal pain, nausea, vomiting. No vomiting recently. No black or tarry stool, is on xarelto and plavix. Pain has been to lower abdomen and epigastric area. Onset months ago but gradually worsening. Heartburn daily. No apsiration but at times feels stuff caught when swallowing. Last EGD was 2015, reflux esophagitis. Has not seen GI yet. Taking carafate 4 times daily, protonix, zofran as needed, colace as needed. CT of abdomen 02/26/22 showed sigmoid diverticulosis without diverticulitis, 3.2 cm AAA, 2 small nonobstructing kidney stones in the left.. She notes that anything she eats or drinks causes issues with heart burn. Throat hurts. Feels like food is getting stuck. Trying to get seen with Dr. Martinez. Feels like she has an infection in her lungs. Coughing a lot. Cough is dry. Has cut back on her smoking significantly. Still has her gallbladder. Last colonoscopy was in 2015. Admits to at times having some issues with dizziness too. She also feels like her throat and tongue are burning, noticing a coating on her tongue. [facility]. Her medications were reviewed today and her list is now up to date. Medications Current Outpatient Medications Medication Sig albuterol HFA (PROVENTIL HFA, VENTOLIN HFA) 90 mcg/actuation inhaler Inhale 2-4 Puffs as instructed every 2 hours as needed for wheezing/shortness of breath. amiodarone (PACERONE) 200 mg tablet Take 200 mg by mouth twice daily. atorvastatin (LIPITOR) 40 mg tablet Take 40 mg by mouth daily at bedtime. clopidogrel (PLAVIX) 75 mg tablet furosemide (LASIX) 20 mg tablet Take 20 mg by mouth twice daily. PARoxetine (PAXIL) 40 mg tablet rivaroxaban (XARELTO) 20 mg tablet Take by mouth. ondansetron orally disintegrating (ZOFRAN ODT) 4 mg disintegrating tablet Take 1 tablet by mouth every 6 hours as needed for nausea/vomiting. pantoprazole DR (PROTONIX) 40 mg tablet Take 1 tablet by mouth once daily. sucralfate (CARAFATE) 1 gram tablet Take 1 tablet by mouth before meals and at bedtime. docusate sodium (COLACE) 100 mg capsule Take 1 capsule by mouth twice daily as needed for constipation. lisinopril (ZESTRIL, PRINIVIL) 20 mg tablet Take 1 tablet by mouth twice daily. gabapentin (NEURONTIN) 300 mg capsule LORazepam (ATIVAN) 1 mg tablet Take 1 tablet by mouth every 6 hours as needed. Per counseling center famotidine (PEPCID) 40 mg tablet Take 1 tablet by mouth once daily. nystatin (MYCOSTATIN) 100,000 unit/mL suspension Take 5 mL by mouth four times daily. 1tsp swish in mouth for several minutes, then swallow (or expectorate) 4 times daily until gone. umeclidinium-vilanterol (ANORO ELLIPTA) 62.5-25 mcg/actuation inhaler Inhale 1 Inhalation as instructed once daily. Diaper,Brief, Adult,Disposable (DEPEND EASY FIT UNDERGARMENTS) misc Size Medium pull up. Change depends once every 1-2 hrs. Dx incontinence (788.30) Prolapsed bladder (618.01) No current facility-administered medications for this visit. ALLERGIES No Known Allergies ACTIVE PROBLEM LIST Sanchez's Esophagus - 08/21/2016 (A priority) Mixed Hyperlipidemia - 07/10/2014 (A priority) Anxiety (A priority) Comment: Per counseling center Depression (A priority) Gerd (Gastroesophageal Reflux Disease) (A priority) COPD (chronic obstructive pulmonary disease) (A priority) Essential Hypertension, Benign (A priority) Comment: Sees Dr. Best Heart Palpitations - 09/29/2016 (B priority) Comment: Event monitor with occasional increased HR but not associated with symptoms. 09/2016 Smoker - 12/28/2015 (C priority) Diverticulosis - 03/20/2015 (C priority) Bladder prolapse, female, acquired - 10/04/2014 (C priority) Stress Incontinence, Female - 07/07/2014 (C priority) Symptomatic Menopausal Or Female Climacteric States - 12/30/2005 (C priority) Chronic Pain (M priority) Comment: low back, sees pain MGT: Dr. 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 [facility] 09-23-2022 Instructions Nora Mccray APRN.CNP - 09/23/2022 2:44 PM EST documented in this encounter [facility] 09-23-2022 History of Present illness Narrative SUBJECTIVE Echo Mascorro is a 66 year old female here today for a check up on her medical problems. Chief Complaint Patient presents with: Establish Care Abdominal Pain: Patient states abdominal pain continues and unable to get into see GI until November and so did not take this appointment. Blood In Urine: was told had blood in urine HPI Echo Mascorro is a 66 year old female who presents today for follow up. She was seen 08/28 with Lyndsey Chappell for abdominal pain. Had been seen in ER for this at [facility] prior to appointment here. Issues with abdominal pain, nausea, vomiting. No vomiting recently. No black or tarry stool, is on xarelto and plavix. Pain has been to lower abdomen and epigastric area. Onset months ago but gradually worsening. Heartburn daily. No apsiration but at times feels stuff caught when swallowing. Last EGD was 2015, reflux esophagitis. Has not seen GI yet. Taking carafate 4 times daily, protonix, zofran as needed, colace as needed. CT of abdomen 02/26/22 showed sigmoid diverticulosis without diverticulitis, 3.2 cm AAA, 2 small nonobstructing kidney stones in the left.. She notes that anything she eats or drinks causes issues with heart burn. Throat hurts. Feels like food is getting stuck. Trying to get seen with Dr. Martinez. Feels like she has an infection in her lungs. Coughing a lot. Cough is dry. Has cut back on her smoking significantly. Still has her gallbladder. Last colonoscopy was in 2016. Admits to at times having some issues with dizziness too. She also feels like her throat and tongue are burning, noticing a coating on her tongue. [facility]. Her medications were reviewed today and her list is now up to date. Medications Current Outpatient Medications Medication Sig albuterol HFA (PROVENTIL HFA, VENTOLIN HFA) 90 mcg/actuation inhaler Inhale 2-4 Puffs as instructed every 2 hours as needed for wheezing/shortness of breath. amiodarone (PACERONE) 200 mg tablet Take 200 mg by mouth twice daily. atorvastatin (LIPITOR) 40 mg tablet Take 40 mg by mouth daily at bedtime. clopidogrel (PLAVIX) 75 mg tablet furosemide (LASIX) 20 mg tablet Take 20 mg by mouth twice daily. PARoxetine (PAXIL) 40 mg tablet rivaroxaban (XARELTO) 20 mg tablet Take by mouth. ondansetron orally disintegrating (ZOFRAN ODT) 4 mg disintegrating tablet Take 1 tablet by mouth every 6 hours as needed for nausea/vomiting. pantoprazole DR (PROTONIX) 40 mg tablet Take 1 tablet by mouth once daily. sucralfate (CARAFATE) 1 gram tablet Take 1 tablet by mouth before meals and at bedtime. docusate sodium (COLACE) 100 mg capsule Take 1 capsule by mouth twice daily as needed for constipation. lisinopril (ZESTRIL, PRINIVIL) 20 mg tablet Take 1 tablet by mouth twice daily. gabapentin (NEURONTIN) 300 mg capsule LORazepam (ATIVAN) 1 mg tablet Take 1 tablet by mouth every 6 hours as needed. Per counseling center famotidine (PEPCID) 40 mg tablet Take 1 tablet by mouth once daily. nystatin (MYCOSTATIN) 100,000 unit/mL suspension Take 5 mL by mouth four times daily. 1tsp swish in mouth for several minutes, then swallow (or expectorate) 4 times daily until gone. umeclidinium-vilanterol (ANORO ELLIPTA) 62.5-25 mcg/actuation inhaler Inhale 1 Inhalation as instructed once daily. Diaper,Brief, Adult,Disposable (DEPEND EASY FIT UNDERGARMENTS) misc Size Medium pull up. Change depends once every 1-2 hrs. Dx incontinence (788.30) Prolapsed bladder (618.01) No current facility-administered medications for this visit. ALLERGIES No Known Allergies ACTIVE PROBLEM LIST Sanchez's Esophagus - 08/21/2016 (A priority) Mixed Hyperlipidemia - 07/10/2014 (A priority) Anxiety (A priority) Comment: Per counseling center Depression (A priority) Gerd (Gastroesophageal Reflux Disease) (A priority) COPD (chronic obstructive pulmonary disease) (A priority) Essential Hypertension, Benign (A priority) Comment: Sees Dr. Best Heart Palpitations - 09/29/2016 (B priority) Comment: Event monitor with occasional increased HR but not associated with symptoms. 09/2016 Smoker - 12/28/2015 (C priority) Diverticulosis - 03/20/2015 (C priority) Bladder prolapse, female, acquired - 10/04/2014 (C priority) Stress Incontinence, Female - 07/07/2014 (C priority) Symptomatic Menopausal Or Female Climacteric States - 12/30/2005 (C priority) Chronic Pain (M priority) Comment: low back, sees pain MGT: Dr. 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 Respiratory: Positive for cough. Negative for chest tightness, shortness of breath and wheezing. Cardiovascular: Negative. Gastrointestinal: Positive for abdominal pain, nausea and vomiting. Negative for abdominal distention, anal bleeding, blood in stool, constipation and diarrhea. Neurological: Positive for dizziness. OBJECTIVE BP 108/60 Pulse 58 Ht 5' 4 (1.63m) Wt 183 lb (83.0kg) SpO2 92% BMI 31.40 kg/(m^2). Physical Exam Vitals and nursing note reviewed. Constitutional: General: She is awake. She is not in acute distress. Appearance: She is well-developed and well-groomed. She is not ill-appearing, toxic-appearing or diaphoretic. HENT: Head: Normocephalic. Neck: Vascular: Carotid bruit present. No JVD. Cardiovascular: Rate and Rhythm: Normal rate and regular rhythm. Heart sounds: Murmur heard. Systolic murmur is present with a grade of 2/6. Pulmonary: Effort: Pulmonary effort is normal. No accessory muscle usage, prolonged expiration or respiratory distress. Breath sounds: Normal breath sounds. Abdominal: General: Bowel sounds are normal. There is no distension. Palpations: Abdomen is soft. There is no shifting dullness, fluid wave, hepatomegaly, splenomegaly or mass. Tenderness: There is no abdominal tenderness. There is no guarding or rebound. Negative signs include Sanchez's sign and McBurney's sign. Musculoskeletal: Cervical back: Neck supple. Skin: General: Skin is warm and dry. Capillary Refill: Capillary refill takes less than 2 seconds. Neurological: General: No focal deficit present. Mental Status: She is alert and oriented to person, place, and time. Mental status is at baseline. Psychiatric: Attention and Perception: Attention and perception normal. Mood and Affect: Mood normal. Speech: Speech normal. Behavior: Behavior normal. Behavior is cooperative. Thought Content: Thought content normal. ASSESSMENT/PLAN: 1. Epigastric pain - ICD9: 789.06, ICD10: R10.13 (primary diagnosis) Her pain sounds like a worsening reflux esophagitis and she already has a known history of Sanchez's esophagus. She really needs an EGD, will add Pepcid, try and get her seen with [facility]. Check labs. Continue Protonix and Carafate. If not able to get in with GI might consider doing a swallow eval while we wait. - AMYLASE BLD - LIPASE BLD - FAMOTIDINE 40 MG TABLET 2. Lower abdominal pain - ICD9: 789.09, ICD10: R10.30 - AMYLASE BLD - LIPASE BLD - FAMOTIDINE 40 MG TABLET - US ABD AORTA 3. Gastroesophageal reflux disease with esophagitis without hemorrhage - ICD9: 530.81, 530.10, ICD10: K21.00 - Discussed lifestyle modifications including losing weight, limiting caffeine, no meals three hours before sleep, and head of bed elevation 4. Smoker - ICD9: 305.1, ICD10: F17.200 - Cessation encouraged. - Physiologic and physical aspects of tobacco addiction as well as strategies for quitting were discussed. - Counseling was given focusing on the harmful effects of this addiction especially given the patient's medical condition(s) which will be worsened because of the chemicals in tobacco. - Not ready to quit. 5. Abdominal aneurysm - ICD9: 441.4, ICD10: I71.[address] scan from 02/2022 a 3.2 cm AAA - US CAROTID ARTERIES [facility] - US ABD AORTA 6. Bruit of left carotid artery - ICD9: 785.9, ICD10: R09.89 With her dizziness we will check an ultrasound - US CAROTID ARTERIES [facility] 7. Hematuria, unspecified type - ICD9: 599.70, ICD10: R31.9 Resolved - UA DIP B/O 8. Chronic obstructive pulmonary disease, unspecified COPD type (HCC) - ICD9: 496, ICD10: J44.9 Start anoro, avoid ICS given her thrush - [id number] BL - UMECLIDINIUM 62.5 MCG-VILANTEROL 25 MCG/ACTUATION POWDR FOR INHALATION 9. Oral thrush - ICD9: 112.0, ICD10: B37.0 - NYSTATIN 100,000 UNIT/ML ORAL SUSPENSION 10. Neuropathy - ICD9: 355.9, ICD10: G62.9 Check some labs. - HGB A1C - VITAMIN B12 BLOOD 11. Dizziness - ICD9: 780.4, ICD10: R42 Consider EKG and ECHO depending on labs and ultrasound. 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 - US CAROTID ARTERIES [facility] - US ABD AORTA - HGB A1C - VITAMIN B12 BLOOD 12. Essential hypertension, benign - ICD9: 401.1, ICD10: I10 - good control - Continue current medication(s) - Recommended regular aerobic exercise. - Recommend home blood pressure monitoring, to bring results in on next visit - Goal of BP <130/80 13. Encounter for therapeutic drug monitoring - ICD9: V58.83, ICD10: Z51.81 - CBC - COMP METABOLIC PANEL Portions of this note have been entered by ancillary staff. I have reviewed and when necessary edited, so that they are an adequate record of my encounter with this patient Please note that parts of this document were created using voice recognition software and therefore may contain grammatical errors. Patient verbalizes understanding of instructions from today's visit and in agreement with treatment plan. Questions answered. Agrees to call the office if questions, concerns of issues with acute symptoms not improving or if they worsen. Return in about 2 weeks (around 10/07/2022) for recheck. Nora Mccray APRN-DONNA documented in this encounter [facility] 09-10-2022 Miscellaneous Notes Patient has been identified by name and date of : Yes, Provider Familia Date 09/10/22 Time 0315 PM Patient phones for refill(s): Requested Prescriptions Pending Prescriptions Disp Refills albuterol HFA (PROVENTIL HFA, VENTOLIN HFA) 90 mcg/actuation inhaler Sig: Inhale 2-4 Puffs as instructed every 2 hours as needed for wheezing/shortness of breath. Date of last office visit in primary care: 08/28/22 Last 2 Encounter Wt Readings: Date: Wt: 08/28/2022 83 kg (183 lb) 01/14/2022 84.3 kg (185 lb 12.8 oz) Previous labs/tests for medication: Not applicable Please advise. Thank you. Hallie Gonzalez RN documented in this encounter [facility] 09-03-2022 Note Patient Outreach (IN [facility]) ECHO MASCORRO ([id number]) 1955 F [address] Date Time Provider Department 09/03/22 GABRIEL GALVAN During your visit today, we recorded the following information about you: Allergies As of Date: 09/03/2022 (No Known Allergies) Date Reviewed: 08/28/2022 Reviewed by: Msity Brown LPN - Fully Assessed Visit Diagnosis:Encounter for screening mammogram for breast cancer [Z12.31] Order(s):[facility] SCREENING [[id number]] Order #: [id number] FUTURE Prescriptions as of 09/08/2022 - amiodarone (PACERONE) 200 mg tablet Take 200 mg by mouth twice daily. - atorvastatin (LIPITOR) 40 mg tablet Take 40 mg by mouth daily at bedtime. - clopidogrel (PLAVIX) 75 mg tablet - furosemide (LASIX) 20 mg tablet Take 20 mg by mouth twice daily. - PARoxetine (PAXIL) 40 mg tablet - rivaroxaban (XARELTO) 20 mg tablet Take by mouth. - ondansetron orally disintegrating (ZOFRAN ODT) 4 mg disintegrating tablet Take 1 tablet by mouth every 6 hours as needed for nausea/vomiting. - pantoprazole DR (PROTONIX) 40 mg tablet Take 1 tablet by mouth once daily. - sucralfate (CARAFATE) 1 gram tablet Take 1 tablet by mouth before meals and at bedtime. - docusate sodium (COLACE) 100 mg capsule Take 1 capsule by mouth twice daily as needed for constipation. - albuterol HFA (PROVENTIL HFA, VENTOLIN HFA) 90 mcg/actuation inhaler Inhale 2-4 Puffs as instructed every 2 hours as needed for wheezing/shortness of breath. - esomeprazole (NEXIUM) 40 mg capsule Take 1 capsule by mouth twice a day. - lisinopril (ZESTRIL, PRINIVIL) 20 mg tablet Take 1 tablet by mouth twice daily. - MEDICATION, NON-DATABASE 1 can Ensure, or like supplement (with 250 calories per can) by mouth, with meals. - gabapentin (NEURONTIN) 300 mg capsule - NARCAN 4 mg/actuation nasal spray - Diaper,Brief, Adult,Disposable (DEPEND EASY FIT UNDERGARMENTS) misc Size Medium pull up. Change depends once every 1-2 hrs. Dx incontinence (788.30) Prolapsed bladder (618.01) - albuterol (PROVENTIL) 2.5 mg /3 mL (0.083 %) nebulizer solution Use 3 mL via nebulizer every 4 hours as needed for Wheezing/Shortness of Breath. Use over 5-15minutes. - carvedilol (COREG) 6.25 mg tablet Take 1 tablet by mouth twice daily. Per Dr. Best - LORazepam (ATIVAN) 1 mg tablet Take 1 tablet by mouth every 6 hours as needed. Per counseling center - morphine immediate release 30 mg tablet Take 30 mg by mouth q 12 HR. - OXYCODONE HCL/ACETAMINOPHEN (PERCOCET ORAL) Take by mouth as needed. - aspirin, enteric coated (ASPIRIN, ENTERIC COATED) 81 mg EC tablet Take 81 mg by mouth once daily. - IBUPROFEN ORAL Take by mouth. Problem List As Of Date 09/03/2022 Noted Resolved Essential hypertension, benign [I10] Lumbago [M54.50] 12/30/2005 Symptomatic menopausal or female climacteric st*12/30/2005 Anxiety [F41.9] Depression [F32.A] GERD (gastroesophageal reflux disease) [K21.9] Chronic pain [G89.29] COPD (chronic obstructive pulmonary disease) [J* Routine gynecological examination [Z01.419] 06/05/2014 Well adult exam [Z00.00] 06/05/2014 Stress incontinence, female [N39.3] 07/07/2014 Mixed hyperlipidemia [E78.2] 07/10/2014 Bladder prolapse, female, acquired [N81.10] 10/04/2014 Diverticulosis [K57.90] 03/20/2015 Smoker [F17.200] 12/28/2015 Epigastric pain [R10.13] 04/16/2016 04/16/2016 Colon cancer screening [Z12.11] 04/16/2016 04/16/2016 Sanchez's esophagus [K22.70] 08/21/2016 Right sided abdominal pain [R10.9] 08/21/2016 Visual disturbances [H53.9] 08/21/2016 Near syncope [R55] 08/21/2016 Heart palpitations [R00.2] 09/29/2016 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] 12/22/2016 Medicare annual wellness visit, subsequent [Z00*06/24/2017 Tremor [R25.1] 06/24/2017 Memory difficulties [R41.3] 06/24/2017 Elevated plasma metanephrines [R79.89] 03/17/2018 Hyperthyroidism [E05.90] 03/17/2018 High catecholamines [R82.5] 03/17/2018 Current use of proton pump inhibitor [Z79.899] 04/27/2018 Encounter for screening mammogram for breast ca*05/12/2018 OAB (overactive bladder) [N32.81] 02/18/2019 Opioid dependence (HCC) [F11.20] 01/15/2020 Encounter Status:Closed by [employer] on 09/08/22 [facility] 08-28-2022 Note HNO ID: [id number] Author: Lyndsey Chappell APRN.CALL CENTER SUPPORT REPRESENTATIVE Service: ? Author Type: Nurse Specialist Type: Progress Notes Filed: 08/28/2022 10:23 AM Note Text: SUBJECTIVE: COVID-19 VACCINE(1) Never done HIV SCREENING Never done BP CONTROLLED (<130/80) Never done DTAP,TDAP,TD(1 - Tdap) Never done ALPHA-1 ANTITRYPSIN DEFICIENCY SCREENING Never done MAMMOGRAM Never done LUNG CANCER SCREENING Never done SHINGRIX VACCINE(1 of 2) Never done ANNUAL PCP TEAM CHRONIC DISEASE VISIT due on 2020 BONE DENSITY Never done ADVANCE DIRECTIVE DISCUSSION Never done PNEUMOCOCCAL: 65+(3 - PPSV23 if available, else PCV20) due on 2021 INFLUENZA(1) due on 05/08/2022 DIABETES SCREEN due on 08/23/2022 HPI Echo Mascorro is a 66 year old female. PMH significant for ACTIVE PROBLEM LIST Essential Hypertension, Benign Lumbago Symptomatic Menopausal Or Female Climacteric States Anxiety Depression Gerd (Gastroesophageal Reflux Disease) Chronic Pain COPD (chronic obstructive pulmonary disease) Routine Gynecological Examination Well Adult Exam Stress Incontinence, Female Mixed Hyperlipidemia Bladder prolapse, female, acquired Diverticulosis Smoker Sanchez's Esophagus Right Sided Abdominal Pain Visual Disturbances Near Syncope Heart Palpitations Neoplasm of Uncertain Behavior of Back Medicare Annual Wellness Visit, Subsequent Tremor Memory Difficulties Elevated Plasma Metanephrines Hyperthyroidism High Catecholamines Current Use of Proton Pump Inhibitor Encounter for Screening Mammogram for Breast Cancer Oab (Overactive Bladder) Opioid Dependence (Hcc) No prior CC visits IM, last seen family medicine 2018. No current PCP. Presents with SO that tries to help with HPI. Has had gastroenterology and [facility] care visits. See yesterday phone encounter [facility]. Missed appointment, referred to ER for severe symptoms, rescheduled to today if not severe. No prior IM visits. Cardiology: [facility], João Durham LOAN ASSOCIATE. Presents today for emergency department follow-up visit. She was seen at [facility] on August 23, 2022 for complaint of general illness. She reported nausea and cough. She reported vomiting. No black or bloody stools reported. Notes she is taking Xarelto and Plavix. No fever noted. No urinary symptoms. She reported anxiety. She has taken Ativan in the past but stated did not take any prior to her ER visit. Due to her history of cardiac disease EKG was completed which showed sinus rhythm with normal ventricular rate and no ischemic changes. Chest x-ray completed no acute cardiopulmonary process. CBC and metabolic panel unremarkable. Troponin negative. Urinalysis negative. She was treated with Zofran and Ativan and felt improved. She was discharged home in stable condition. Impression nausea vomiting generalized weakness and anxiety. [facility] Le[facility] Hassan [address] Today reports epigastric pain and lower abdominal pain. Reports present for months. Heartburn: She reports daily Reflux: She notes occasional Abdominal pain: Epigastric and lower abdominal, notes with epigastric discomfort and nausea discomfort can radiate to her left shoulder Nausea: Yes Vomiting: No Diarrhea: No Constipation: Yes, BM 2 times per week, take stool softener as needed 2/day BRBPR: no Black tarry:no Notes occasionally feels like something caught in lower esophagus. No reported aspiration. States has had remote EGD, colonoscopy. CC EGD 2015 showed Marlon-Kwabena Grade III reflux esophagitis Review of Systems Gastrointestinal: Positive for abdominal pain, constipation and nausea. Psychiatric/Behavioral: Positive for sleep disturbance. The patient is nervous/anxious. Objective BP 150/100 Pulse 87 Resp 18 Wt 83 kg (183 lb) SpO2 97% BMI 30.45 kg/m? Physical Exam Vitals and nursing note reviewed. Constitutional: Appearance: Normal appearance. HENT: Head: Normocephalic and atraumatic. Eyes: Conjunctiva/sclera: Conjunctivae normal. Cardiovascular: Rate and Rhythm: Normal rate and regular rhythm. Heart sounds: Normal heart sounds. Pulmonary: Effort: Pulmonary effort is normal. Breath sounds: Normal breath sounds. Abdominal: General: Bowel sounds are normal. There is no distension. Palpations: Abdomen is soft. Tenderness: There is abdominal tenderness (epigastric, mild). There is no guarding or rebound. Musculoskeletal: Right lower leg: No edema. Left lower leg: No edema. Skin: General: Skin is warm and dry. Neurological: Mental Status: She is alert. Mental status is at baseline. ALLERGIES No Known Allergies Medications albuterol HFA (PROVENTIL HFA, VENTOLIN HFA) 90 mcg/actuation inhaler Inhale 2-4 Puffs as instructed every 2 hours as needed for wheezing/shortness of breath. predniSONE (DELTASONE) 10 mg tablet Take 4 tabs daily for 3 days, then 2 tabs (more content not included)... [facility] 08-27-2022 Miscellaneous Notes Patient notified, verbalized understanding. Patient asking to be seen tomorrow - Transferred to generation technician for appointment. I have no open 40 min slots today to reschedule with me today. If she is acutely ill then she can go to [facility] or back to the ER Annamarie Lopez APRN.DONNA Pt was scheduled with CONSUMER SALES REPRESENTATIVE at 8am this morning. Pt called & stated the taxi did not show up to bring her for appt. Pt asking to reschedule today. Man in the background yelling obscenities & saying pt needs seen today as she is sick. Maureen Hassan LPN documented in this encounter [facility] 01-21-2022 Miscellaneous Notes Noted. Tiff, a outsole caser with [facility] calling to ask if Dr. Martinez was patient's provider. She states she wanted to inform him that patient had a recent hospital stay at [facility]. Informed Tiff that per May 2020 notes, patient mentioned about getting a new PCP at that time, and she also did not follow up in March of 2020 as was instructed to do, as well as has never followed up after ER visits/hospitalizations since then. Also noted a 09/04/20 that reports patient's daughter confirmed patient was seeing a new PCP. Informed Tiff that Dr. Martinez is not listed as her PCP per record at this time. Tiff reports patient mentioned to her that she did not get a new PCP. Informed Tiff that I would send this message to Dr. Martinez as requested. Thank you. documented in this encounter [facility] 01-14-2022 Instructions Pascale Mata APRN.LOAN ASSOCIATE - 01/14/2022 4:21 PM EDT Understanding COPD What is COPD? COPD stands for chronic obstructive pulmonary (lung) disease. COPD is a term applied to a family of diseases that includes emphysema, chronic bronchitis, and emphysema due to alpha-1 antitrypsin deficiency. COPD usually progresses gradually, causing limited airflow in and out of the lungs. COPD adds to the work of the heart. Diseased lungs might reduce the amount of oxygen that goes to the blood. High blood pressure in blood vessels from the heart to the lungs makes it difficult for the heart to pump. Lung disease can also cause the body to produce too many red blood cells, which might make the blood thicker and harder to pump. Patients who have COPD with low oxygen levels might develop an enlarged heart (cor pulmonale). This condition weakens the heart and causes increased shortness of breath, and swelling in the legs and feet. The good news is that COPD is treatable, and the information in this manual can help you manage your COPD and flare-ups, and help you to modify your risk factors. Chronic bronchitis Chronic bronchitis is irritation and inflammation (swelling) of the lining in the bronchial tubes (air passages). The irritation causes coughing and an excess amount of mucus in the airways. The swelling makes it difficult to get air in and out of the lungs. The small, hair-like structures on the inside of the airways (called cilia) might be damaged by the irritation. The cilia are then unable to help clean mucus from the airways. Bronchitis is generally considered chronic when you have: a productive cough (cough up mucus) and shortness of breath that lasts about three months or more each year for two or more years in a row. Your doctor might define chronic bronchitis differently. Emphysema Emphysema is the destruction, or breakdown, of the willard of the alveoli (air sacs) located at the end of the bronchial tubes. The damaged alveoli are not able to exchange oxygen and carbon dioxide between the lungs and the blood. The bronchioles lose their elasticity and collapse when you exhale, trapping air in the lungs. The trapped air keeps fresh air and oxygen from entering the lungs. Who is affected by COPD? Emphysema and chronic bronchitis affect approximately 16 million people in the [place], or close to 11 percent of the population. Symptoms of COPD Shortness of breath Shortness of breath with mild exercise (walking, using the stairs, etc.) Chronic, productive cough (with mucus) A feeling of tightness in the chest Wheezing What causes COPD? The two primary causes of COPD are cigarette smoking and alpha-1 antitrypsin (AAT) deficiency. Air pollution and occupational dusts might also contribute to COPD, especially when the person exposed to these substances is a cigarette smoker. Cigarette smoke causes COPD by irritating the airways and creating inflammation that narrows the airways, making it more difficult to breathe. Cigarette smoke also causes the cilia to stop working properly so mucus and trapped particles are not cleaned from the airways. As a result, chronic cough and excess mucus production develop, leading to chronic bronchitis. In some people, chronic bronchitis and infections can lead to destruction of the small airways, or emphysema. AAT deficiency, an inherited disorder, can also lead to emphysema. Alpha-1 antitrypsin (AAT) is a protective material produced in the liver and transported to the lungs to help combat inflammation. When there is not enough of the chemical AAT, the body is no longer protected from an enzyme in the white blood cells. This can cause a breakdown in the willard of the air sacs (alveoli). When the alveoli are destroyed, oxygen cannot be transferred into the blood and carbon dioxide cannot be taken from the blood to be exhaled. How is COPD diagnosed? Medical history To diagnose COPD, the physician needs the answers to the following questions: Do you smoke? Have you had chronic exposure to dust or air pollutants? Do other members of your family have lung disease? Are you short of breath? Do you get short of breath with exercise? Do you have chronic cough and/or wheezing? Do you cough up excess mucus? Physical exam To help with the diagnosis, the physician will conduct a thorough physical exam, which includes: Listening to your lungs and heart Checking your blood pressure and pulse Examining your nose and throat Checking your feet and ankles for swelling Laboratory and other tests Several laboratory and other tests are needed to confirm a diagnosis of COPD. These tests might include: Electrocardiogram (ECG or EKG) to check heart function and rule out heart disease as a cause of shortness of breath Chest X-ray to look for lung changes that could be caused by COPD Spirometry and pulmonary function tests (PFTs) to determine lung volume and air flow Pulse oximetry to measure the saturation of oxygen in the blood Arterial blood gases (ABGs) to determine the amount of oxygen and carbon dioxide in the blood Exercise testing to determine if the oxygen level in the blood drops during exercise Treatment In the beginning stages of COPD, there is minimal shortness of breath that might be noticed only during exercise. As the disease progresses, shortness of breath might worsen, and you might need to wear an oxygen device. To help control other symptoms of COPD, the following treatments and lifestyle changes might be prescribed: Quitting smoking Avoiding cigarette smoke and other irritants Taking medications including: -bronchodilators -anti-inflammatory agents -oxygen -antibiotics Maintaining a healthy diet Following a structured exercise program Preventing respiratory infections Controlling stress If your COPD progresses, you might be eligible to be evaluated for lung volume reduction surgery or lung transplantation. You might also be eligible to participate in certain clinical trials (research studies). Ask your health care providers about studies being conducted in your hospital. What is the outlook? Although COPD cannot be cured, its symptoms can be treated and your quality of life can be improved. Your prognosis, or outlook, for the future will depend on how well your lungs are functioning, your symptoms, and how well you respond to and follow your treatment plan. Copyright [id number] [facility]. All rights reserved documented in this encounter [facility] 01-14-2022 History of Present illness Narrative This note was created using NoteWriter. Subjective Echo Mascorro is a 66 year old female. 66 year old female with PMH HTN, hyperlipidemia, COPD, GERD, and anxiety presents with complaints of cough and congestions. Acute onset of symptoms was one week ago +cough +congestions +increased sputum production +tobacco usage, but states she cannot smoke as much Denies hemoptysis. Denies CP. Utilized Robitussin Utilized Phenergan. Used Mucinex +tobacco usage. The history is provided by the patient. No speech language pathologist travel was used. Cough This is a new problem. The current episode started more than 2 days ago. The problem occurs constantly. The problem has not changed since onset.The cough is productive of sputum. There has been no fever. Associated symptoms include wheezing. Pertinent negatives include no chest pain, no chills, no sweats, no weight loss, no ear congestion, no ear pain, no headaches, no rhinorrhea, no sore throat, no myalgias, no shortness of breath and no eye redness. She has tried decongestants and cough syrup for the symptoms. The treatment provided no relief. She is a smoker. Her past medical history is significant for COPD. Her past medical history does not include bronchitis, pneumonia, bronchiectasis, emphysema or asthma. PAST MEDICAL HISTORY Diagnosis Date Anxiety Chronic pain low back, sees pain MGT: Dr. Nayak COPD (chronic obstructive pulmonary disease) ([facility]) Depression Essential hypertension, benign Sees Dr. Best GERD (gastroesophageal reflux disease) Incontinence 07/07/2014 Opioid dependence ([facility]) 01/15/2020 In 180 as of 01/2020 per ER report from [facility]. PAST SURGICAL HISTORY Procedure Laterality Date 2D ECHO (EXEP) 01/19/2017 EF=55%, mild LVH, LA enlargement, GA and TI, Diastolic dysfunction. 2D ECHO (EXEP) 12/18/2017 EF=55%, mild LVH, mild diastolic dysfunct, COLONOSCOPY FLX DX W/COLLJ SPEC WHEN PFRMD 04/16/2016 Colonoscopy mac. repeat 10 yrs ESOPHAGOGASTRODUODENOSCOPY TRANSORAL DIAGNOSTIC 04/16/16 EGD mac TOTAL ABDOMINAL HYSTERECT W/WO RMVL TUBE OVARY Hysterectomy, YANICK ALLERGIES Patient has no known allergies. MEDICATIONS ondansetron orally disintegrating (ZOFRAN ODT) 4 mg disintegrating tablet Take 1 tablet by mouth every 6 hours as needed for nausea/vomiting. esomeprazole (NEXIUM) 40 mg capsule Take 1 capsule by mouth twice a day. lisinopril (ZESTRIL, PRINIVIL) 20 mg tablet Take 1 tablet by mouth twice daily. MEDICATION, NON-DATABASE 1 can Ensure, or like supplement (with 250 calories per can) by mouth, with meals. gabapentin (NEURONTIN) 300 mg capsule Diaper,Brief, Adult,Disposable (DEPEND EASY FIT UNDERGARMENTS) misc Size Medium pull up. Change depends once every 1-2 hrs. Dx incontinence (788.30) Prolapsed bladder (618.01) carvedilol (COREG) 6.25 mg tablet Take 1 tablet by mouth twice daily. Per Dr. Best LORazepam (ATIVAN) 1 mg tablet Take 1 tablet by mouth every 6 hours as needed. Per counseling center venlafaxine (EFFEXOR) 37.5 mg tablet Take 1 tablet by mouth once daily. Per counseling center polyethylene glycol 3350 (MIRALAX, GLYCOLAX) 17 gram/dose powder Take 17 g by mouth once daily. This is one (1) capful. Put in 8oz of liquid each day. aspirin, enteric coated (ASPIRIN, ENTERIC COATED) 81 mg EC tablet Take 81 mg by mouth once daily. IBUPROFEN ORAL Take by mouth. albuterol HFA (PROVENTIL HFA, VENTOLIN HFA) 90 mcg/actuation inhaler Inhale 2-4 Puffs as instructed every 2 hours as needed for wheezing/shortness of breath. doxycycline monohydrate (MONODOX) 100 mg capsule Take 1 capsule by mouth twice daily for 7 days. predniSONE (DELTASONE) 10 mg tablet Take 4 tabs daily for 3 days, then 2 tabs daily for 3 days, then 1 tab daily for 3 days with food. NARCAN 4 mg/actuation nasal spray albuterol (PROVENTIL) 2.5 mg /3 mL (0.083 %) nebulizer solution Use 3 mL via nebulizer every 4 hours as needed for Wheezing/Shortness of Breath. Use over 5-15minutes. morphine immediate release 30 mg tablet Take 30 mg by mouth q 12 HR. OXYCODONE HCL/ACETAMINOPHEN (PERCOCET ORAL) Take by mouth as needed. FAMILY HISTORY Problem Relation Age of Onset Breast Cancer Sister Heart Mother Diabetes Mother Stroke Mother Hypertension Mother Heart Maternal Grandmother Heart Brother Social History Tobacco Use Smoking status: Current Every Day Smoker Packs/day: 1.00 Years: 40.00 Pack years: 40.00 Types: Cigarettes Smokeless tobacco: Never Used Tobacco comment: 7 cigarette Substance Use Topics Alcohol use: No Drug use: No Review of Systems Constitutional: Negative for chills, fatigue, fever and weight loss. HENT: Positive for congestion. Negative for ear pain, rhinorrhea and sore throat. Eyes: Negative for redness. Respiratory: Positive for cough and wheezing. Negative for apnea, choking, chest tightness, shortness of breath and stridor. Cardiovascular: Negative for chest pain, palpitations and leg swelling. Musculoskeletal: Negative for arthralgias, back pain, gait problem and myalgias. Skin: Negative for color change, pallor and rash. Allergic/Immunologic: Negative for environmental allergies, food allergies and immunocompromised state. Neurological: Negative for dizziness, facial asymmetry, light-headedness, numbness and headaches. Hematological: Negative for adenopathy. Does not bruise/bleed easily. Psychiatric/Behavioral: Negative for agitation and behavioral problems. Objective BP 146/84 Pulse 112 Temp 37.4 C (99.3 F) (Tympanic) Resp 20 Wt 84.3 kg (185 lb 12.8 oz) SpO2 94% BMI 30.92 kg/m Physical Exam Vitals and nursing note reviewed.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 Condition: In stable condition. Improving. (Principal Problem: COVID-19>>>>Meds Active Problems: Hypertension>>>Meds PSVT (paroxysmal supraventricular tachycardia) (HCC)>>>SR Type 2 diabetes mellitus (HCC)>>>Meds Depression>>>Meds Nicotine addiction>>Counselling). Plan: Start/continue incentive spirometry and continue respiratory treatments. Restricted diet and advance diet as tolerated. Administer medications as ordered. (Specialty Problems Cardiology Problems Hypertension>>>Meds PSVT (paroxysmal supraventricular tachycardia) (HCC)>>>SR Reevaluate ). I personally obtained the xiong and critical portions of the history and physical exam. I reviewed the labs, imaging studies, and electronic medical record. I reviewed the chart documentation, and discussed the patient with treatment team members. I have edited the note to reflect my clinical findings and my assessment and plan. Please note, the time of this note does not reflect the time I saw this patient today, but the time of this documentation. SIGNATURE: Feliz Sidhu MD; FACC; FHRS; FASNC; CCDS. PATIENT NAME: Alessio Mascorro DATE: 06/17/2021 PAGER: [phone] Nutrition rescreen completed. Patient assigned a level 1. Pt refusing to wear athletic monitor and have EKG done. Benefits verses risk explained to patient. This nurse notified Dr. Sidhu regarding elevated troponin level and patient refusing to have EKG and wear athletic monitor. Patient heart rate is controlled, continuing Lopressor. Cardiology came and evaluated the patient. Continue monitor. H&P as per night physician Pt's son, Sanju, updated on pt condition. [facility] Note Hospitalist Discharg e Summary Echo Mascorro : 1955 Admit date: 06/14/2021 AMA Discharge date: 06/15/21 Admitting Physician: Brady Beatty MD Primary Care Physician: No primary care provider on file. Visit Status: Left AMA Code Status: Prior Discharge Diagnoses: Acute hypoxic respiratory failure: Most likely secondary to Covid pneumonia. Currently patient is on 4 L nasal cannula saturating well. Continue to wean oxygen. Continue breathing treatments. ? Acute metabolic encephalopathy: Could be secondary to ingestion of opioids as patient responded dramatically with Narcan. Urine tox ordered results are pending. Continue to monitor. ? Covid pneumonia: Patient was positive for Covid 1 week ago as an outpatient. Repeat Covid test is negative. As patient is hypoxic with a significant chest x-ray changes started on Decadron. 1 dose of remdesivir ordered, will follow up on ID recommendations regarding continuing remdesivir. Lovenox twice daily. Patient did not stay to get the treatment. Left AGAINST MEDICAL ADVICE on 06/15/2021 Signed: Brady Beatty MD Division of Hospitalist Medicine Inpatient Medical Services 06/28/2021, 4:05 PM [facility] 06-14-2021 History of Present illness Narrative Son called with complaints about the emergency room. He stated he knew doctors and human resources hr representative and he has rights to take the patient to another facility. Explained to patient and her son that he could take her but it would be ama. And explained what that was both verbalized understanding and denied further questions at present Patients son still wanting to move patient somewhere closer to his house. Doctor in to talk with patient patient stated she was tired and just wanted to sleep. Patient stated that whatever her son wanted she would do because it is easier to go along with him. documented in this encounter [facility] Work Phone: documented as of this encounter (statuses as of 09/23/2022) [facility] History of Past illness Narrative* Problem Noted Date Resolved Date Opioid dependence 01/15/2020 09/23/2022 Overview: In 180 as of 01/2020 per ER report from [facility]. Encounter for screening mammogram for breast can cer 05/12/2018 09/23/2022 Current use of proton pump inhibitor 04/27/2018 09/23/2022 Medicare annual wellness visit, subsequent 06/2409/23/2022 Overview: last done: 06/24/2017 Near syncope 08/21/2016 09/23/2022 Epigastric pain 04/16/2016 04/16/2016 Colon cancer screening 04/16/2016 6 Routine gynecological examination 06/05/2014 09/23/2022 Well adult exam 06/05/2014 09/23/2022 Overview: last done 06/24/2017 documented as of this encounter (statuses as of 09/24/2022) [facility] History of Past illness Narrative* Problem Noted Date Resolved Date Opioid dependence 01/15/2020 09/23/2022 Overview: In 180 as of 01/2020 per ER report from [facility]. Encounter for screening mammogram for breast can cer 05/12/2018 09/23/2022 Current use of proton pump inhibitor 04/27/2018 09/23/2022 Medicare annual wellness visit, subsequent 06/2409/23/2022 Overview: last done: 06/24/2017 Near syncope 08/21/2016 09/23/2022 Epigastric pain 04/16/2016 04/16/2016 Colon cancer screening 04/16/2016 6 Routine gynecological examination 06/05/2014 09/23/2022 Well adult exam 06/05/2014 09/23/2022 Overview: last done 06/24/2017 documented as of this encounter (statuses as of 10/01/2022) [facility] History of Past illness Narrative* Problem Noted Date Resolved Date Opioid dependence 01/15/2020 09/23/2022 Overview: In 180 as of 01/2020 per ER report from [facility]. Encounter for screening mammogram for breast can cer 05/12/2018 09/23/2022 Current use of proton pump inhibitor 04/27/2018 09/23/2022 Medicare annual wellness visit, subsequent 06/2409/23/2022 Overview: last done: 06/24/2017 Near syncope 08/21/2016 09/23/2022 Epigastric pain 04/16/2016 04/16/2016 Colon cancer screening 04/16/2016 6 Routine gynecological examination 06/05/2014 09/23/2022 Well adult exam 06/05/2014 09/23/2022 Overview: last done 06/24/2017 documented as of this encounter (statuses as of 10/03/2022) [facility] History of Past illness Narrative* Problem Noted Date Resolved Date Opioid dependence 01/15/2020 09/23/2022 Overview: In 180 as of 01/2020 per ER report from [facility]. Encounter for screening mammogram for breast can cer 05/12/2018 09/23/2022 Current use of proton pump inhibitor 04/27/2018 09/23/2022 Medicare annual wellness visit, subsequent 06/2409/23/2022 Overview: last done: 06/24/2017 Near syncope 08/21/2016 09/23/2022 Epigastric pain 04/16/2016 04/16/2016 Colon cancer screening 04/16/2016 6 Routine gynecological examination 06/05/2014 09/23/2022 Well adult exam 06/05/2014 09/23/2022 Overview: last done 06/24/2017 documented as of this encounter (statuses as of 10/13/2022) [facility] History of Past illness Narrative* Problem Noted Date Resolved Date Opioid dependence 01/15/2020 09/23/2022 Overview: In 180 as of 01/2020 per ER report from [facility]. Encounter for screening mammogram for breast can cer 05/12/2018 09/23/2022 Current use of proton pump inhibitor 04/27/2018 09/23/2022 Medicare annual wellness visit, subsequent 06/2409/23/2022 Overview: last done: 06/24/2017 Near syncope 08/21/2016 09/23/2022 Epigastric pain 04/16/2016 04/16/2016 Colon cancer screening 04/16/2016 6 Routine gynecological examination 06/05/2014 09/23/2022 Well adult exam 06/05/2014 09/23/2022 Overview: last done 06/24/2017 documented as of this encounter (statuses as of 11/07/2022) [facility] History of Past illness Narrative* Problem Noted Date Resolved Date Opioid dependence 01/15/2020 09/23/2022 Overview: In 180 as of 01/2020 per ER report from [facility]. Encounter for screening mammogram for breast can cer 05/12/2018 09/23/2022 Current use of proton pump inhibitor 04/27/2018 09/23/2022 Medicare annual wellness visit, subsequent 06/2409/23/2022 Overview: last done: 06/24/2017 Near syncope 08/21/2016 09/23/2022 Epigastric pain 04/16/2016 04/16/2016 Colon cancer screening 04/16/2016 6 Routine gynecological examination 06/05/2014 09/23/2022 Well adult exam 06/05/2014 09/23/2022 Overview: last done 06/24/2017 documented as of this encounter (statuses as of 11/10/2022) [facility] History of Past illness Narrative* Problem Noted Date Resolved Date Opioid dependence 01/15/2020 09/23/2022 Overview: In 180 as of 01/2020 per ER report from [facility]. Encounter for screening mammogram for breast can cer 05/12/2018 09/23/2022 Current use of proton pump inhibitor 04/27/2018 09/23/2022 Medicare annual wellness visit, subsequent 06/2409/23/2022 Overview: last done: 06/24/2017 Near syncope 08/21/2016 09/23/2022 Epigastric pain 04/16/2016 04/16/2016 Colon cancer screening 04/16/2016 6 Routine gynecological examination 06/05/2014 09/23/2022 Well adult exam 06/05/2014 09/23/2022 Overview: last done 06/24/2017 documented as of this encounter (statuses as of 01/05/2023) [facility] History of Past illness Narrative* Problem Noted Date Resolved Date Opioid dependence 01/15/2020 09/23/2022 Overview: In 180 as of 01/2020 per ER report from [facility]. Encounter for screening mammogram for breast can cer 05/12/2018 09/23/2022 Current use of proton pump inhibitor 04/27/2018 09/23/2022 Medicare annual wellness visit, subsequent 06/2409/23/2022 Overview: last done: 06/24/2017 Near syncope 08/21/2016 09/23/2022 Epigastric pain 04/16/2016 04/16/2016 Colon cancer screening 04/16/2016 6 Routine gynecological examination 06/05/2014 09/23/2022 Well adult exam 06/05/2014 09/23/2022 Overview: last done 06/24/2017 documented as of this encounter (statuses as of 01/05/2023) [facility] History of Past illness Narrative* Problem Noted Date Resolved Date Opioid dependence 01/15/2020 09/23/2022 Overview: In 180 as of 01/2020 per ER report from [facility]. Encounter for screening mammogram for breast can cer 05/12/2018 09/23/2022 Current use of proton pump inhibitor 04/27/2018 09/23/2022 Medicare annual wellness visit, subsequent 06/2409/23/2022 Overview: last done: 06/24/2017 Near syncope 08/21/2016 09/23/2022 Epigastric pain 04/16/2016 04/16/2016 Colon cancer screening 04/16/2016 6 Routine gynecological examination 06/05/2014 09/23/2022 Well adult exam 06/05/2014 09/23/2022 Overview: last done 06/24/2017 documented as of this encounter (statuses as of 01/14/2023) [facility] History of Past illness Narrative* Problem Noted Date Resolved Date Opioid dependence 01/15/2020 09/23/2022 Overview: In 180 as of 01/2020 per ER report from [facility]. Encounter for screening mammogram for breast can cer 05/12/2018 09/23/2022 Current use of proton pump inhibitor 04/27/2018 09/23/2022 Medicare annual wellness visit, subsequent 06/2409/23/2022 Overview: last done: 06/24/2017 Near syncope 08/21/2016 09/23/2022 Epigastric pain 04/16/2016 04/16/2016 Colon cancer screening 04/16/2016 6 Routine gynecological examination 06/05/2014 09/23/2022 Well adult exam 06/05/2014 09/23/2022 Overview: last done 06/24/2017 documented as of this encounter (statuses as of 01/16/2023) [facility] History of Past illness Narrative* Problem Noted Date Resolved Date Opioid dependence 01/15/2020 09/23/2022 Overview: In 180 as of 01/2020 per ER report from [facility]. Encounter for screening mammogram for breast can cer 05/12/2018 09/23/2022 Current use of proton pump inhibitor 04/27/2018 09/23/2022 Medicare annual wellness visit, subsequent 06/2409/23/2022 Overview: last done: 06/24/2017 Near syncope 08/21/2016 09/23/2022 Epigastric pain 04/16/2016 04/16/2016 Colon cancer screening 04/16/2016 6 Routine gynecological examination 06/05/2014 09/23/2022 Well adult exam 06/05/2014 09/23/2022 Overview: last done 06/24/2017 documented as of this encounter (statuses as of 01/17/2023) [facility] History of Past illness Narrative* Problem Noted Date Resolved Date Opioid dependence 01/15/2020 09/23/2022 Overview: In 180 as of 01/2020 per ER report from [facility]. Encounter for screening mammogram for breast can cer 05/12/2018 09/23/2022 Current use of proton pump inhibitor 04/27/2018 09/23/2022 Medicare annual wellness visit, subsequent 06/2409/23/2022 Overview: last done: 06/24/2017 Near syncope 08/21/2016 09/23/2022 Epigastric pain 04/16/2016 04/16/2016 Colon cancer screening 04/16/2016 6 Routine gynecological examination 06/05/2014 09/23/2022 Well adult exam 06/05/2014 09/23/2022 Overview: last done 06/24/2017 documented as of this encounter (statuses as of 01/19/2023) [facility] History of Past illness Narrative* Problem Noted Date Diagnosed Date Resolved Date Opioid dependence 01/15/2020 09/23/2022 Overview: In 180 as of 01/2020 per ER report from [facility]. Encounter for screening mamm ogram for breast cancer 05/12/2018 09/23/2022 Current use of proton pump inhibitor 04/27/2018 09/23/2022 Medicare annual wellness visit, subsequent 06/24/2017 09/23/2022 Overview: last done: 06/24/2017 Near syncope 08/21/2016 09/23/2022 Epigastric pain 04/16/2016 04/16/2016 Colon cancer screening 04/16/201604/16 Routine gynecological examination 06/05/2014 09/23/2022 Well adult exam 06/05/2014 09/23/2022 Overview: last done 06/24/2017 documented as of this encounter (statuses as of 04/16/2023) [facility] History of Past illness Narrative* Problem Noted Date Diagnosed Date Resolved Date Opioid dependence 01/15/2020 09/23/2022 Overview: In 180 as of 01/2020 per ER report from [facility]. Encounter for screening mamm ogram for breast cancer 05/12/2018 09/23/2022 Current use of proton pump inhibitor 04/27/2018 09/23/2022 Medicare annual wellness visit, subsequent 06/24/2017 09/23/2022 Overview: last done: 06/24/2017 Near syncope 08/21/2016 09/23/2022 Epigastric pain 04/16/2016 04/16/2016 Colon cancer screening 04/16/201604/16 Routine gynecological examination 06/05/2014 09/23/2022 Well adult exam 06/05/2014 09/23/2022 Overview: last done 06/24/2017 documented as of this encounter (statuses as of 04/18/2023) [facility] History of Past illness Narrative* Problem Noted Date Diagnosed Date Resolved Date Opioid dependence 01/15/2020 09/23/2022 Overview: In 180 as of 01/2020 per ER report from [facility]. Encounter for screening mamm ogram for breast cancer 05/12/2018 09/23/2022 Current use of proton pump inhibitor 04/27/2018 09/23/2022 Medicare annual wellness visit, subsequent 06/24/2017 09/23/2022 Overview: last done: 06/24/2017 Near syncope 08/21/2016 09/23/2022 Epigastric pain 04/16/2016 04/16/2016 Colon cancer screening 04/16/201604/16 Routine gynecological examination 06/05/2014 09/23/2022 Well adult exam 06/05/2014 09/23/2022 Overview: last done 06/24/2017 documented as of this encounter (statuses as of 04/24/2023) [facility] History of Past illness Narrative* Problem Noted Date Diagnosed Date Resolved Date Opioid dependence 01/15/2020 09/23/2022 Overview: In 180 as of 01/2020 per ER report from [facility]. Encounter for screening mamm ogram for breast cancer 05/12/2018 09/23/2022 Current use of proton pump inhibitor 04/27/2018 09/23/2022 Medicare annual wellness visit, subsequent 06/24/2017 09/23/2022 Overview: last done: 06/24/2017 Near syncope 08/21/2016 09/23/2022 Epigastric pain 04/16/2016 04/16/2016 Colon cancer screening 04/16/201604/16 Routine gynecological examination 06/05/2014 09/23/2022 Well adult exam 06/05/2014 09/23/2022 Overview: last done 06/24/2017 documented as of this encounter (statuses as of 04/30/2023) [facility] History of Past illness Narrative* Problem Noted Date Diagnosed Date Resolved Date Opioid dependence 01/15/2020 09/23/2022 Overview: In 180 as of 01/2020 per ER report from [facility]. Encounter for screening mamm ogram for breast cancer 05/12/2018 09/23/2022 Current use of proton pump inhibitor 04/27/2018 09/23/2022 Medicare annual wellness visit, subsequent 06/24/2017 09/23/2022 Overview: last done: 06/24/2017 Near syncope 08/21/2016 09/23/2022 Epigastric pain 04/16/2016 04/16/2016 Colon cancer screening 04/16/201604/16 Routine gynecological examination 06/05/2014 09/23/2022 Well adult exam 06/05/2014 09/23/2022 Overview: last done 06/24/2017 documented as of this encounter (statuses as of 05/01/2023) [facility] History of Past illness Narrative* Problem Noted Date Diagnosed Date Resolved Date Opioid dependence 01/15/2020 09/23/2022 Overview: In 180 as of 01/2020 per ER report from [facility] Encounter for screening mamm ogram for breast cancer 05/12/2018 09/23/2022 Current use of proton pump inhibitor 04/27/2018 09/23/2022 Medicare annual wellness visit, subsequent 06/24/2017 09/23/2022 Overview: last done: 06/24/2017 Near syncope 08/21/2016 09/23/2022 Epigastric pain 04/16/2016 04/16/2016 Colon cancer screening 04/16/201604/16 Routine gynecological examination 06/05/2014 09/23/2022 Well adult exam 06/05/2014 09/23/2022 Overview: last done 06/24/2017 documented as of this encounter (statuses as of 05/05/2023) [facility] History of Past illness Narrative* Problem Noted Date Diagnosed Date Resolved Date Opioid dependence 01/15/2020 09/23/2022 Overview: In 180 as of 01/2020 per ER report from [facility]. Encounter for screening mamm ogram for breast cancer 05/12/2018 09/23/2022 Current use of proton pump inhibitor 04/27/2018 09/23/2022 Medicare annual wellness visit, subsequent 06/24/2017 09/23/2022 Overview: last done: 06/24/2017 Near syncope 08/21/2016 09/23/2022 Epigastric pain 04/16/2016 04/16/2016 Colon cancer screening 04/16/201604/16 Routine gynecological examination 06/05/2014 09/23/2022 Well adult exam 06/05/2014 09/23/2022 Overview: last done 06/24/2017 documented as of this encounter (statuses as of 07/12/2023) [facility] History of Past illness Narrative* Problem Noted Date Diagnosed Date Resolved Date Opioid dependence 01/15/2020 09/23/2022 Overview: In 180 as of 01/2020 per ER report from [facility]. Encounter for screening mamm ogram for breast cancer 05/12/2018 09/23/2022 Current use of proton pump inhibitor 04/27/2018 09/23/2022 Medicare annual wellness visit, subsequent 06/24/2017 09/23/2022 Overview: last done: 06/24/2017 Near syncope 08/21/2016 09/23/2022 Epigastric pain 04/16/2016 04/16/2016 Colon cancer screening 04/16/201604/16 Routine gynecological examination 06/05/2014 09/23/2022 Well adult exam 06/05/2014 09/23/2022 Overview: last done 06/24/2017 documented as of this encounter (statuses as of 08/17/2023) [facility] History of Past illness Narrative* Problem Noted Date Resolved Date Epigastric pain 04/16/2016 04/16/2016 Colon cancer screening 04/16/2016 6 documented as of this encounter (statuses as of 01/14/2022) [facility] of Past illness Narrative* Problem Noted Date Resolved Date Epigastric pain 04/16/2016 04/16/2016 Colon cancer screening 04/16/2016 6 documented as of this encounter (statuses as of 01/21/2022) [facility] of Past illness Narrative* Problem Noted Date Resolved Date Epigastric pain 04/16/2016 04/16/2016 Colon cancer screening 04/16/2016 6 documented as of this encounter (statuses as of 08/27/2022) [facility] of Past illness Narrative* Problem Noted Date Resolved Date Epigastric pain 04/16/2016 04/16/2016 Colon cancer screening 04/16/2016 6 documented as of this encounter (statuses as of 09/12/2022) [facility]-19 documented in this encounter [facility] Work Phone: Evaluation note* Diagnosis COVID-19- Primary COVID Paroxysmal supraventricular tachycardia (HCC) Paroxysmal supraventricular tachycardia Hypoxia Hypoxemia Pneumonia due to infectious organism, unspecified laterality, unspecified part of lung Hypertension Unspecified essential hypertension Depression Depressive disorder, not elsewhere classified Type 2 diabetes mellitus (HCC) Type II or unspecified type diabetes mellitus without mention of complication, not stated as uncontrolled PSVT (paroxysmal supraventricular tachycardia) (HCC) Paroxysmal supraventricular tachycardia Anxiety disorder Anxiety state, unspecified documented in this encounter [facility] Work Phone: Evaluation note* Diagnosis Rib contusion, left, initial encounter- Primary Fall, initial encounter documented in this encounter [facility] Work Phone: Evaluation note* Diagnosis COPD with exacerbation (HCC)- Primary Obstructive chronic bronchitis with exacerbation [facility]ough [facility] Diagnosis Epigastric pain- Primary Abdominal pain, epigastric Lower abdominal pain Abdominal pain, other specified site Gastroesophageal reflux disease with esophagitis without hemorrhage Smoker Tobacco use disorder Abdominal aneurysm Abdominal aneurysm without mention of rupture Bruit of left carotid artery Other symptoms involving cardiovascular system Hematuria, unspecified type Chronic obstructive pulmonary disease, unspecified COPD type (HCC) Oral thrush Candidiasis of mouth Neuropathy Mononeuritis of unspecified site Dizziness Dizziness and giddiness Essential hypertension, benign Encounter for therapeutic drug monitoring documented in this encounter [facility] note* Diagnosis Epigastric pain Abdominal pain, epigastric Lower abdominal pain Abdominal pain, other specified site documented in this encounter [facility] note* Diagnosis Shortness of breath- Primary Epigastric pain Abdominal pain, epigastric Type 2 diabetes mellitus with other specified complication, without long-term current use of insulin ([facility]) Cardiomyopathy in disease classified elsewhere ([facility]) Supraventricular tachycardia ([facility]) Other specified cardiac dysrhythmias Acute exacerbation of chronic obstructive pulmonary disease (COPD) ([facility]) Obstructive chronic bronchitis with exacerbation LV (left ventricular) mural thrombus Acute myocardial infarction, unspecified site, episode of care unspecified Chest pain, unspecified type NSTEMI (non-ST elevated myocardial infarction) ([facility]) Acute myocardial infarction, subendocardial infarction, episode of care unspecified HFrEF (heart failure with reduced ejection fraction) ([facility]) Heart failure, unspecified Gastroesophageal reflux disease, unspecified whether esophagitis present documented in this encounter [facility] note* Diagnosis Encounter for screening for lung cancer- Primary Chronic cough Cough Chronic bronchitis, unspecified chronic bronchitis type ([facility]) Smoker Tobacco use disorder documented in this encounter [facility] note* Diagnosis Radiculopathy, lumbosacral region- Primary Thoracic or lumbosacral neuritis or radiculitis, unspecified Neuropathy Mononeuritis of unspecified site Pain in right leg Paresthesia of skin Disturbance of skin sensation documented in this encounter [facility] note* Diagnosis Lower abdominal pain Abdominal pain, other specified site Abdominal aneurysm (HCC) Abdominal aneurysm without mention of rupture Dizziness Dizziness and giddiness documented in this encounter [facility] note* Diagnosis Encounter for screening mammogram for breast cancer documented in this encounter [facility] for referral (narrative)* Diagnostic Procedure Only (Routine) - Authorized Specialty Diagnoses / Procedures Referred By Karma t Referred To Contact [facility] IMAGING Diagnoses Lower abdominal pain Abdominal aneurysm Dizziness Procedures US ABD AORTA US RETROPERITONEAL REAL TIME W/IMAGE LIMITED Nora Mccray APRN.LOAN ASSOCIATE [address] [place] [address] Us Imaging Referral ID Status Reason Start Date Expiration Date Visits Requested Visits Authorized [id number] Authorized Auto-Generat ed Referral 09/23/2022 10/23/2023 1 1 * Outpatient Procedure (Routine) - Authorized Specialty Diagnoses / Procedures Referred By Contac t Referred To Contact [facility] [place] Diagnoses Abdominal aneurysm Bruit of left carotid artery Dizziness Procedures US CAROTID ARTERIES RADHA VAS LAB DUPLEX SCAN EXTRACRANIAL ART COMPL BI STUDY Nora Mccray APRN.CNP [address] [place] [address] [facility] [place] [address] [place] [address] Referral ID Status Reason Start Date Expiration Date Visits Requested Visits Authorized [id number] Authorized Auto-Generat ed Referral 09/23/2022 09/23/2023 1 1 [facility] for referral (narrative)* Diagnostic Procedure Only (Routine) - Closed Specialty Diagnoses / Procedures Referred By Contac t Referred To Contact [facility] IMAGING Diagnoses Lower abdominal pain Abdominal aneurysm (HCC) Dizziness Procedures US ABD AORTA US RETROPERITONEAL REAL TIME W/IMAGE LIMITED Nora Mccray APRN.LOAN ASSOCIATE [facility] [place] [address] Us Imaging [id number] Referral ID Status Reason Start Date Expiration Date V isits Requested Visits Authorized [id number] Closed Auto-Generate d Referral 09/23/2022 10/23/2023 1 1 [facility] for referral (narrative)* Diagnostic Procedure Only (Routine) - Pending Review Specialty Diagnoses / Procedures Referred By Contac t Referred To Contact [facility] Diagnoses Encounter for screening mammogram for breast cancer Procedures YANG SCREENING SCREENING MAMMOGRAPHY BI 2-VIEW BREAST INC CAD Gabriel Galvan MD [address] [place] [address] [facility] Imaging [address] [place] [address] Referral ID Status Reason Start Date Expiration Date Visits Requested Visits Authorized [id number] Pending Review Auto-Generat ed Referral 08/12/2023 09/10/2024 1 1 [facility] Summary Purpose Family History No Family History Records FoundNo Family History Records FoundNo Family History Records FoundNo Family History Records FoundNo Family History Records Found Advance Directives No Advanced Directives Records FoundLatest Code Status on File Code Status Date Activated Date Inactivated Comments Full Code 06/14/2021 3:52 PM Healthcare Agents on File Name Relationship Healthcare Agent Relationshi p Communication Sanju Douglas Child Primary Decision Maker Latest Code Status on File Code Status Date Activated Date Inactivated Comments Full Code 06/16/2021 3:05 AM Full Code 06/14/2021 3:52 PM 06/15/2021 4:09 AM Healthcare Agents on File Name Relationship Healthcare Agent Relationshi p Communication Sanju Douglas Child Primary Decision Maker Latest Code Status on File Code Status Date Activated Date Inactivated Comments Full Code 06/16/2021 3:05 AM 06/18/2021 5:10 PM Healthcare Agents on File Name Relationship Healthcare Agent Relationshi p Communication Sanju Douglas Child Primary Decision Maker Documents on File Type Date Recorded Patient Yoghurt Maker Expl anation Advance Directive(s) 09/13/2019 12:48 PM Advance Directive(s) 08/23/2019 8:47 PM Advance Directive(s) 04/16/2016 12:37 PM Advance Directive(s) 04/04/2016 12:48 PM Reason for Referral Specialty Diagnoses / Procedures Referred By Karma rothman Referred To Contact Lyndsey Chappell APRN.CALL CENTER SUPPORT REPRESENTATIVE [address] [place] [address] Referral ID Status Reason Start Date Expiration Date Visits Re quested Visits Authorized [id number] Closed 1 1 Specialty Diagnoses / Procedures Referred By Karma rothman Referred To Contact CT IMAGING Diagnoses Encounter for screening for lung cancer Chronic cough Chronic bronchitis, unspecified chronic bronchitis type (HCC) Smoker Procedures CT CHEST WO IVCON DIAGNOSTIC COMPUTED TOMOGRAPHY THORAX W/O CNTRST Nora Mccray APRN.LOAN ASSOCIATE [address] [place] [address] [facility] [place] [address] Referral ID Status Reason Start Date Expiration Date Visits Requested Visits Authorized [id number] Authorized Auto-Generat ed Referral 05/13/2023 06/12/2023 1 1 Additional Source Comments INFORMATION SOURCE (unrecogn ized section and content) DATE CREATED AUTHOR AUTHOR'S ORGANIZ ATION 09/15/2019 [facility] DATE CREATED AUTHOR AUTHOR'S ORGANIZ ATION 11/23/2019 [facility] [place] DATE CREATED AUTHOR AUTHOR'S ORGANIZ ATION 07/29/2021 [facility] DATE CREATED AUTHOR AUTHOR'S ORGANIZ ATION 08/18/2023 [facility] Reason for Visit (unrecogniz ed section and content) Reason Comments Tachycardia Reason Comments Fall Reason Comments Cough cough, congestion, f ever and VEGA x 1 week Reason Comments Patient Update Reason Comments ER F/U Reason Comments Refill Request Reason Comments Establish Care Abdominal Pain Patient states abdom inal pain continues and unable to get into see GI until November and so did not take this appointment. Blood In Urine was told had blood i n urine Reason Comments Results Reason Comments Mental Status Changes Reason Comments Patient Update Medication Request Reason Onset Date Comments Refill Request 11/06/2022 Reason Onset Date Comments Transition Of Care 01/05/2023 Reason Comments requesting prescription cough Reason Comments Hospital F/U Reason Comments Social Work Services Reason Comments Medication Request Reason Comments Patient Request Reason Comments Medication Problem Reason Comments Needs Authorization Reason Comments Results Reason Onset Date Comments EMG 05/01/2023 Specialty Diagnoses / Procedures Referred By Karma rothman Referred [facility] Diagnoses Neuropathy Procedures EMG(NEURO/NI) NERVE CONDUCTION STUDIES 9-10 STUDIES Nora Mccray APRN.LOAN ASSOCIATE [address] [place] [address] [facility] [place] [address] [place] [address] Referral ID Status Reason Start Date Expiration Date V isits Requested Visits Authorized [id number] Closed Auto-Generate d Referral 04/15/2023 04/15/2024 1 1 Reason Comments Results EMG Reason Comments Radiology US Specialty Diagnoses / Procedures Referred By Karma rothman Referred To Contact [facility] Diagnoses Lower abdominal pain Abdominal aneurysm (HCC) Dizziness Procedures US ABD AORTA US RETROPERITONEAL REAL TIME W/IMAGE LIMITED Nora Mccray APRN.LOAN ASSOCIATE [address] [place] [address] [place] [address] Referral ID Status Reason Start Date Expiration Date V isits Requested Visits Authorized [id number] Closed Auto-Generate d Referral 09/23/2022 10/23/2023 1 1 Scheduled Active and Recently Administ ered Medications (unrecognized section and content) PRN Medication Order 06/13/2021 06/14/2021 06/15/2021 0.9 % sodium chloride infusion 25 mL, IntraVENous, at 100 mL/hr, PRN, If patient receiving piggyback infusions without ordered maintenance IV fluids or with frequent/long duration piggyback infusions, Starting on Thu06/14/21 at 1552, Administer at the same rate as the piggyback being infused. acetaminophen (TYLENOL) suppository 650 mg(Linked Group 1) 650 mg, Rectal, EVERY 6 HOURS PRN, Pain Mild (1-3), Fever, For temp greater than 100.4 F (38 C), Starting on Thu06/14/21 at 1552, Administer if oral route cannot be used. acetaminophen (TYLENOL) tablet 650 mg(Linked Group 1) 650 mg, Oral, EVERY 6 HOURS PRN, Pain Mild (1-3), Fever, For temp greater than 100.4 F (38 C), Starting on Thu06/14/21 at 1552, Maximum dose of acetaminophen is 4000 mg from all sources in 24 hours. guaiFENesin-dextromethorphan (ROBITUSSIN DM) 100-10 MG/5ML syrup 5 mL 5 mL, Oral, EVERY 4 HOURS PRN, Cough, Starting on Thu06/14/21 at 1552 ondansetron (ZOFRAN) injection 4 mg(Linked Group 2) 4 mg, IntraVENous, EVERY 6 HOURS PRN, Nausea, Vomiting, Starting on Thu06/14/21 at 1552, Administer if oral route cannot be used. ondansetron (ZOFRAN-ODT) disintegrating tablet 4 mg(Linked Group 2) 4 mg, Oral, EVERY 8 HOURS PRN, Nausea, Vomiting, Starting on Thu06/14/21 at 1552 polyethylene glycol (GLYCOLAX) packet 17 g 17 g, Oral, DAILY PRN, Constipation, Starting on Thu06/14/21 at 1552, First line therapy for constipation sodium chloride flush 0.9 % injection 5-40 mL 5-40 mL, IntraVENous, PRN, Line Care, After every IV line use, Starting on Thu06/14/21 at 1552, For Line Patency: Peripheral IV = 5 mL; Midline or Central Line = 10 mL/lumen. If following IV push medication, administer flush at same rate as the IV push. Flush volume is determined by type of infusion therapy being given. For non-viscous solutions use: Peripheral IV = 5 mL Midline or Central Line = 10 mL/lumen For viscous solutions (i.e. blood components, parenteral nutrition, contrast media, or after obtaining blood sample) use: Peripheral IV = 10 mL Midline or Central Line = 20 mL/lumen No Frequency Medication Order 06/13/2021 06/14/2021 06/15/2021 naloxone (NARCAN) 2 MG/2ML injection (COMPLETED) Starting on Thu06/14/21 at 1037, For 1 dose, CHIQUITA RAMOS: cabinet override 1108 (Given - Provider: Raj Ramos RN - Comment: per physician) Linked Groups Order Group 1: acetaminophen (TYLENOL) tablet 650 mgJump to med 650 mg, Oral, EVERY 6 HOURS PRN, Pain Mild (1-3), Fever, For temp greater than 100.4 F (38 C), Starting on Thu06/14/21 at 1552
Maximum dose of acetaminophen is 4000 mg from all sources in 24 hours.
Or acetaminophen (TYLENOL) suppository 650 mgJump to med 650 mg, Rectal, EVERY 6 HOURS PRN, Pain Mild (1-3), Fever, For temp greater than 100.4 F (38 C), Starting on Thu06/14/21 at 1552
Administer if oral route cannot be used.
Group 2: ondansetron (ZOFRAN-ODT) disintegrating tablet 4 mgJump to med 4 mg, Oral, EVERY 8 HOURS PRN, Nausea, Vomiting, Starting on Thu06/14/21 at 1552 Or ondansetron (ZOFRAN) injection 4 mgJump to med 4 mg, IntraVENous, EVERY 6 HOURS PRN, Nausea, Vomiting, Starting on Thu06/14/21 at 1552
Administer if oral route cannot be used.
Scheduled Medication Order 06/16/2021 06/17/2021 06/18/2021 dexamethasone (PF) (DECADRON) injection 6 mg 6 mg, IntraVENous, EVERY 24 HOURS, First dose on 06/16/21 at 2000, For 10 doses 2148 (Given - Provider: Tita Singer RN) 2032 (Given - Provider: Tita Singer RN) 1999 (Due) dilTIAZem (CARDIZEM) tablet 30 mg (CANCELED) 30 mg, Oral, EVERY 8 HOURS SCHEDULED (3 times per day), First dose on Thu06/16/21 at 0330 0450 (Given - Provider: Tita Singer RN) enoxaparin (LOVENOX) injection 30 mg 30 mg, SubCUTAneous, 2 TIMES DAILY, First dose (after last modification) on 06/16/21 at 0900 0956 (Given - Provider: Layla Triana RN)2148 (Given - Provider: Tita Singer RN) 0853 (Given - Provider: Shy Ambriz RN)2032 (Given - Provider: Tita Singer RN) 0951 (Given - Provider: Shy Ambriz RN)2099 (Due) escitalopram (LEXAPRO) tablet 10 mg 10 mg, Oral, DAILY, First dose on Thu06/17/21 at 1200 1147 (Given - Provider: Shy Ambriz RN) 0951 (Given - Provider: Shy mAbriz, WENDY) lisinopril (PRINIVIL;ZESTRIL) tablet 20 mg 20 mg, Oral, 2 TIMES DAILY WITH MEALS, First dose on 06/16/21 at 1115 1230 (Given - Provider: Layla Triana RN)1807 (Given - Provider: Layla Triana RN) 0853 (Given - Provider: Shy Ambriz RN)1659 (Given - Provider: Shy Ambriz RN) 0951 (Given - Provider: Shy Ambriz RN)1700 (Due) LORazepam (ATIVAN) tablet 1 mg 1 mg, Oral, 2 TIMES DAILY, First dose on 06/16/21 at 1045 1101 (Given - Provider: Layla Triana RN)1807 (Given - Provider: Layla Triana RN) 0853 (Given - Provider: Shy Ambriz RN)2032 (Given - Provider: Tita Singer RN) 0951 (Given - Provider: Shy Ambriz RN)2000 (Due) metoprolol succinate (TOPROL XL) extended release tablet 50 mg 50 mg, Oral, DAILY, First dose on 06/16/21 at 1315, Hold for HR<60 or BP<100 syst. Do not crush or chew. 1355 (Given - Provider: Layla Triana RN) 0853 (Given - Provider: Shy Ambriz RN) 0951 (Given - Provider: Shy Ambriz RN) sodium chloride flush 0.9 % injection 5-40 mL 5-40 mL, IntraVENous, EVERY 12 HOURS SCHEDULED (2 times per day), First dose on 06/16/21 at 0900, For Line Patency: Peripheral IV = 5 mL; Midline or Central Line = 10 mL/lumen. If following IV push medication, administer flush at same rate as the IV push. Flush volume is determined by type of infusion therapy being given. For non-viscous solutions use: Peripheral IV = 5 mL Midline or Central Line = 10 mL/lumen For viscous solutions (i.e. blood components, parenteral nutrition, contrast media, or after obtaining blood sample) use: Peripheral IV = 10 mL Midline or Central Line = 20 mL/lumen 0957 (Given - Provider: Layla Triana RN)2149 (Given - Provider: Tita Singer, WENDY) 0853 (Given - Provider: Shy Ambriz RN)203 (Given - Provider: Tita Singer, WENDY) 0951 (Given - Provider: Shy Ambriz RN)2100 (Due) PRN Medication Order 06/16/2021 06/17/2021 06/18/2021 0.9 % sodium chloride infusion 25 mL, IntraVENous, at 100 mL/hr, PRN, If patient receiving piggyback infusions without ordered maintenance IV fluids or with frequent/long duration piggyback infusions, Starting on 06/16/21 at 0302, Administer at the same rate as the piggyback being infused. acetaminophen (TYLENOL) suppository 650 mg(Linked Group 1) 650 mg, Rectal, EVERY 6 HOURS PRN, Pain Mild (1-3), Fever, For temp greater than 100.4 F (38 C), Starting on 06/16/21 at 0302, Administer if oral route cannot be used. acetaminophen (TYLENOL) tablet 650 mg(Linked Group 1) 650 mg, Oral, EVERY 6 HOURS PRN, Pain Mild (1-3), Fever, For temp greater than 100.4 F (38 C), Starting on 06/16/21 at 0302, Maximum dose of acetaminophen is 4000 mg from all sources in 24 hours. guaiFENesin-dextromethorp munguia (ROBITUSSIN DM) 100-10 MG/5ML syrup 5 mL 5 mL, Oral, EVERY 4 HOURS PRN, Cough, Starting on 06/16/21 at 0303 0450 (Given - Provider: Tita Singer RN)1001 (Given - Provider: Layla Triana RN)1807 (Given - Provider: Layla Triana RN) 1146 (Given - Provider: Shy Ambriz RN) 0438 (Given - Provider: Tita Singer RN) ipratropium-albuterol (DUONEB) nebulizer solution 1 ampule 1 ampule, Inhalation, EVERY 4 HOURS PRN, Shortness of Breath, Starting on 06/16/21 at 2130 2153 (Given - Provider: Natalia Portillo RCP) 1803 (Given - Provider: Brown Hyde RCP) melatonin tablet 5 mg 5 mg, Oral, NIGHTLY PRN, Sleep, Starting on 06/16/21 at 2150 2150 (Given - Provider: Tita Singer RN) 203 (Given - Provider: Tita Singer RN) ondansetron (ZOFRAN) injection 4 mg 4 mg, IntraVENous, EVERY 6 HOURS PRN, Nausea, Vomiting, Starting on [place] 06/16/21 at 1020 1101 (Given - Provider: Layla Triana, WENDY) 1659 (Given - Provider: Shy Ambriz RN) perflutren lipid microspheres (DEFINITY) injection 1.65 mg 1.65 mg (1.5 mL), IntraVENous, IMG ONCE PRN, Other, Suboptimal Echo Image, Starting on [place] 06/16/21 at 0303, For 72 hours, Administer up to 1.65 mg via slow IVP for suboptimal echocardiogram enhancement. May administer as concentrated dose or diluted in 8.5 mL of 0.9% sodium chloride for a total volume of 10 mL. May administer as divided doses to reach optimal image enhancement. polyethylene glycol (GLYCOLAX) packet 17 g 17 g, Oral, DAILY PRN, Constipation, Starting on [place] 06/16/21 at 0302, First line therapy for constipation sodium chloride flush 0.9 % injection 5-40 mL 5-40 mL, IntraVENous, PRN, Line Care, After every IV line use, Starting on [place] 06/16/21 at 0302, For Line Patency: Peripheral IV = 5 mL; Midline or Central Line = 10 mL/lumen. If following IV push medication, administer flush at same rate as the IV push. Flush volume is determined by type of infusion therapy being given. For non-viscous solutions use: Peripheral IV = 5 mL Midline or Central Line = 10 mL/lumen For viscous solutions (i.e. blood components, parenteral nutrition, contrast media, or after obtaining blood sample) use: Peripheral IV = 10 mL Midline or Central Line = 20 mL/lumen sodium chloride flush 0.9 % injection 5-40 mL 5-40 mL, IntraVENous, PRN, Line Care, Per [employer] Sales [employer] Rep Request, Starting on [place] 06/16/21 at 0303, For 72 hours, May use order for Line Care after every IV line use and Agitated Saline Bubble Study. Administration for Bubble Study per coin purse assembler request for only. Remove 1 mL 0.9% sodium chloride from 10 mL syringe for creating agitated saline. If following IV push medication, administer flush at same rate as the IV push. Flush volume is determined by type of infusion therapy being given. , For non-viscous solutions use: Peripheral IV = 5 mL Midline or Central Line = 10 mL/lumen For viscous solutions (i.e. blood components, parenteral nutrition, contrast media, or after obtaining blood sample) use: Peripheral IV = 10 mL Midline or Central Line = 20 mL/lumen Linked Groups Order Group 1: acetaminophen (TYLENOL) tablet 650 mgJump to med 650 mg, Oral, EVERY 6 HOURS PRN, Pain Mild (1-3), Fever, For temp greater than 100.4 F (38 C), Starting on 06/16/21 at 0302
Maximum dose of acetaminophen is 4000 mg from all sources in 24 hours.
Or acetaminophen (TYLENOL) suppository 650 mgJump to med 650 mg, Rectal, EVERY 6 HOURS PRN, Pain Mild (1-3), Fever, For temp greater than 100.4 F (38 C), Starting on 06/16/21 at 0302
Administer if oral route cannot be used.
Scheduled Medication Order 07/24/2021 07/25/2021 07/26/2021 lidocaine 4 % external patch 1 patch 1 patch, TransDERmal, Administer over 12 Hours, DAILY, First dose on Thu07/26/21 at 1422, Apply patch to Left ribcage. Patch may remain in place for up to 12 hours in any 24 hour period. 1450 (Patch Applied - Provider: Dakota Patterson RN) oxyCODONE-acetaminophen (PERCOCET) 5-325 MG per tablet 1 tablet (COMPLETED) 1 tablet, Oral, ONCE, On Thu07/26/21 at 1422, For 1 dose, Maximum dose of acetaminophen is 4000 mg from all sources in 24 hours. 1449 (Given - Provid er: Dakota Patterson RN) Ordered Prescriptions (unrec ognized section and content) Prescription Sig Dispensed Refills Start Date End Da te oxyCODONE-acetaminophen (PERCOCET) 5-325 MG per tabletIndications:Rib contusion, left, initial encounter,Fall, initial encounter Take 1 tablet by mouth every 6 hours as needed for Pain for up to 5 days. Intended supply: 5 days. Take lowest dose possible to manage pain 20 tablet 0 07/26/2021 07/31/2021 naproxen (NAPROSYN) 500 MG tablet Take 1 tablet by mouth 2 times daily (with meals) for 5 days 10 tablet 0 07/26/2021 07/31/2021 lidocaine 4 % external patch Place 1 patch onto the skin daily 30 patch 0 07/26/2021 08/25/2021 Source Comments (unrecognize d section and content) In the event this informatio n is protected by the Federal Confidentiality of Alcohol and Drug Abuse Patient Records regulations: The Federal rules restrict any use of the information to criminally investigate or prosecute any alcohol or drug abuse patient.[facility] the event this information is protected by the Federal Confidentiality of Alcohol and Drug Abuse Patient Records regulations: The Federal rules restrict any use of the information to criminally investigate or prosecute any alcohol or drug abuse patient.[facility] the event this information is protected by the Federal Confidentiality of Alcohol and Drug Abuse Patient Records regulations: The Federal rules restrict any use of the information to criminally investigate or prosecute any alcohol or drug abuse patient.[facility] the event this information is protected by the Federal Confidentiality of Alcohol and Drug Abuse Patient Records regulations: The Federal rules restrict any use of the information to criminally investigate or prosecute any alcohol or drug abuse patient.[facility] the event this information is protected by the Federal Confidentiality of Alcohol and Drug Abuse Patient Records regulations: The Federal rules restrict any use of the information to criminally investigate or prosecute any alcohol or drug abuse patient.[facility] the event this information is protected by the Federal Confidentiality of Alcohol and Drug Abuse Patient Records regulations: The Federal rules restrict any use of the information to criminally investigate or prosecute any alcohol or drug abuse patient.[facility] the event this information is protected by the Federal Confidentiality of Alcohol and Drug Abuse Patient Records regulations: The Federal rules restrict any use of the information to criminally investigate or prosecute any alcohol or drug abuse patient.[facility] HospitalIn the event this information is protected by the Federal Confidentiality of Alcohol and Drug Abuse Patient Records regulations: The Federal rules restrict any use of the information to criminally investigate or prosecute any alcohol or drug abuse patient.[facility] the event this information is protected by the Federal Confidentiality of Alcohol and Drug Abuse Patient Records regulations: The Federal rules restrict any use of the information to criminally investigate or prosecute any alcohol or drug abuse patient.[facility] HospitalIn the event this information is protected by the Federal Confidentiality of Alcohol and Drug Abuse Patient Records regulations: The Federal rules restrict any use of the information to criminally investigate or prosecute any alcohol or drug abuse patient.[facility] HospitalIn the event this information is protected by the Federal Confidentiality of Alcohol and Drug Abuse Patient Records regulations: The Federal rules restrict any use of the information to criminally investigate or prosecute any alcohol or drug abuse patient.[facility] HospitalIn the event this information is protected by the Federal Confidentiality of Alcohol and Drug Abuse Patient Records regulations: The Federal rules restrict any use of the information to criminally investigate or prosecute any alcohol or drug abuse patient.[facility] HospitalIn the event this information is protected by the Federal Confidentiality of Alcohol and Drug Abuse Patient Records regulations: The Federal rules restrict any use of the information to criminally investigate or prosecute any alcohol or drug abuse patient.[facility] HospitalIn the event this information is protected by the Federal Confidentiality of Alcohol and Drug Abuse Patient Records regulations: The Federal rules restrict any use of the information to criminally investigate or prosecute any alcohol or drug abuse patient.[facility] HospitalIn the event this information is protected by the Federal Confidentiality of Alcohol and Drug Abuse Patient Records regulations: The Federal rules restrict any use of the information to criminally investigate or prosecute any alcohol or drug abuse patient.[facility] HospitalIn the event this information is protected by the Federal Confidentiality of Alcohol and Drug Abuse Patient Records regulations: The Federal rules restrict any use of the information to criminally investigate or prosecute any alcohol or drug abuse patient.[facility] HospitalIn the event this information is protected by the Federal Confidentiality of Alcohol and Drug Abuse Patient Records regulations: The Federal rules restrict any use of the information to criminally investigate or prosecute any alcohol or drug abuse patient.[facility] HospitalIn the event this information is protected by the Federal Confidentiality of Alcohol and Drug Abuse Patient Records regulations: The Federal rules restrict any use of the information to criminally investigate or prosecute any alcohol or drug abuse patient.[facility] HospitalIn the event this information is protected by the Federal Confidentiality of Alcohol and Drug Abuse Patient Records regulations: The Federal rules restrict any use of the information to criminally investigate or prosecute any alcohol or drug abuse patient.[facility] HospitalIn the event this information is protected by the Federal Confidentiality of Alcohol and Drug Abuse Patient Records regulations: The Federal rules restrict any use of the information to criminally investigate or prosecute any alcohol or drug abuse patient.[facility] HospitalIn the event this information is protected by the Federal Confidentiality of Alcohol and Drug Abuse Patient Records regulations: The Federal rules restrict any use of the information to criminally investigate or prosecute any alcohol or drug abuse patient.[facility] HospitalIn the event this information is protected by the Federal Confidentiality of Alcohol and Drug Abuse Patient Records regulations: The Federal rules restrict any use of the information to criminally investigate or prosecute any alcohol or drug abuse patient.[facility] HospitalIn the event this information is protected by the Federal Confidentiality of Alcohol and Drug Abuse Patient Records regulations: The Federal rules restrict any use of the information to criminally investigate or prosecute any alcohol or drug abuse patient.[facility] HospitalIn the event this information is protected by the Federal Confidentiality of Alcohol and Drug Abuse Patient Records regulations: The Federal rules restrict any use of the information to criminally investigate or prosecute any alcohol or drug abuse patient.[facility] HospitalIn the event this information is protected by the Federal Confidentiality of Alcohol and Drug Abuse Patient Records regulations: The Federal rules restrict any use of the information to criminally investigate or prosecute any alcohol or drug abuse patient.[facility] Care Teams (unrecognized sec tion and content) Shoe Dresser Relationship Specialty Start Date End Date Gabriel Galvan MD [address] [place], [place] [id number] PCP - General Internal Medicine 08/28/22 Shoe Dresser Relationship Specialty Start Date End Date Gabriel Galvan MD [address] [place], [place] [id number] PCP - General Internal Medicine 08/28/22 Shoe Dresser Relationship Specialty Start Date End Date Gabriel Galvan MD [address] [place], [place] [id number] PCP - General Internal Medicine 08/28/22 Shoe Dresser Relationship Specialty Start Date End Date Gabriel Galvan MD [facility] [place] [address] PCP - General Internal Medicine 08/28/22 Shoe Dresser Relationship Specialty Start Date End Date Gabriel Galvan MD [address] [place] [address], [place] [address] PCP - General Internal Medicine 08/28/22 Shoe Dresser Relationship Specialty Start Date End Date Gabriel Galvan MD [address] [place] [address], [place] [address] PCP - General Internal Medicine 08/28/22 Shoe Dresser Relationship Specialty Start Date End Date Gabriel Galvan MD [address] [place] [address], [place] [address] PCP - General Internal Medicine 08/28/22 Shoe Dresser Relationship Specialty Start Date End Date Gabriel Galvan MD [address] [place] [address], [place] [address] PCP - General Internal Medicine 08/28/22 Shoe Dresser Relationship Specialty Start Date End Date Gabriel Galvan MD [address] [place] [address], [place] [address] PCP - General Internal Medicine 08/28/22 Shoe Dresser Relationship Specialty Start Date End Date Gabriel Galvan MD [address] [place] [address], [place] [address] PCP - General Internal Medicine 08/28/22 Shoe Dresser Relationship Specialty Start Date End Date Gabriel Galvan MD [address] [place] [address], [place] [address] PCP - General Internal Medicine 08/28/22 Shoe Dresser Relationship Specialty Start Date End Date Gabriel Galvan MD [address] [place] [address], [place] [address] PCP - General Internal Medicine 08/28/22 Shoe Dresser Relationship Specialty Start Date End Date Gabriel Galvan MD [address] [place] [address] PCP - General Internal Medicine 08/28/22 Shoe Dresser Relationship Specialty Start Date End Date Gabriel Galvan MD [address] [place] [address] PCP - General Internal Medicine 08/28/22 Shoe Dresser Relationship Specialty Start Date End Date Gabriel Galvan MD [address] [place] [address] PCP - General Internal Medicine 08/28/22 Shoe Dresser Relationship Specialty Start Date End Date Gabriel Galvan MD [address] [place] [address] PCP - General Internal Medicine 08/28/22 Shoe Dresser Relationship Specialty Start Date End Date Gabriel Galvan MD [address] [place] [address] PCP - General Internal Medicine 08/28/22 Shoe Dresser Relationship Specialty Start Date End Date Gabriel Galvan MD [address] [place] [address] PCP - General Internal Medicine 08/28/22 Shoe Dresser Relationship Specialty Start Date End Date Gabriel Galvan MD [address] [place] [address] PCP - General Internal Medicine 08/28/22 FOR RECORDS PERTAINING TO PATIENTS WHO ARE OR HAVE BEEN ENROLLED IN A CHEMICAL DEPENDENCY/SUBSTANCEABUSE PROGRAM, SOME INFORMATION MAY BE OMITTED. This clinical summary was aggregated from multiple sources. Caution should be exercised in using it in the provision of clinical care. This summary normalizes information from multiple sources, and as a consequence, information in this document may materially change the coding, format and clinical context of patient data. In addition, data may be omitted in some cases. CLINICAL DECISIONS SHOULD BE BASED ON THE PRIMARY CLINICAL RECORDS. [facility] [employer] [facility]. provides no warranty or guarantee of the accuracy or completeness of information in this document.
[2023-09-05] MEDS: Ondansetron 4 MG/2 ML Vial IV (19:43)
[2023-09-05] MEDS: fentaNYL 100 MCG/2 ML Ampul 25 MCG IV (19:43)
[2023-09-05] MEDS: 0.9% Normal Saline (1000mL) 1,000 ML 150 ML IV (19:43)
[2023-09-05 19:45] LABS: Absolute Lymphocyte Count 1.96 X10^3/uL (0.83-4.51); Absolute Neutrophil Count 5.8 X10^3/uL (2.0-7.7); Basophil# 0.05 X10^3/uL; Basophil% 0.6 % (0-1); Eosinophil# 0.31 X10^3/uL; Eosinophils% 3.5 % (0-5); Hematocrit 40.8 % (37-47); Hemoglobin 13.2 g/dL (12.0-15.0); Lymphocyte # 1.96 X10^3/ul (0.83-4.51); Lymphocyte % 22.2 % (19-41); Mean Corp Hgb Conc 32.4 g/dL (32-36); Mean Corpuscular Hgb 30.6 pg (27.0-32.0); Mean Corpuscular Volume 94.7 fL (81-99); Mean Platelet Vol. 8.7 fl (6.2-12.0); Monocyte# 0.66 X10^3/uL; Monocyte% 7.5 % (0-10); NRBC Flagged by Analyzer 0 % (0-5); Neutrophil % 65.6 % (47-70); Platelet Count 258 K/mm3 (150-450); RBC Distribution Width CV 12.9 % (11.6-14.6); RBC Distribution Width SD 44.6 fl (35.1-43.9); Red Blood Count 4.31 M/mm3 (4.2-5.4); White Blood Count 8.8 K/mm3 (4.4-11.0)
[2023-09-05 20:06] LABS: AST(SGOT) 14 U/L (15-37); Alanine Aminotransfer ALT/SGPT 18 U/L (13-56); Albumin, Serum 2.8 g/dL (3.2-5.0); Alkaline Phosphatase 126 U/L (45-117); Anion Gap 4 (5-15); BUN 14 mg/dL (7-18); BUN/Creat Ratio 15.6 RATIO (10-20); Bilirubin, Direct 0.19 mg/dL (0.00-0.30); Calcium,Total 9.4 mg/dL (8.5-10.1); Chloride 105 mmol/L (98-107); EST Glomerular Filtration Rate 67 mL/min (>60); Est Glom Filt Rate - Afr Amer 81 mL/min (>60); Globulin 4.1 g/dL (2.2-4.2); Glucose 112 mg/dL (74-106); Lipase 12 U/L (13-75); Protein, Total 6.9 g/dL (6.4-8.2); Sodium Level 137 mmol/L (136-145)
[2023-09-05 20:59] LABS: Bacteria 0 SEEN /hpf (None Seen); Mucous, Urine 0 SEEN /hpf (<or=2+); Red Blood Cells-Urine 0 SEEN /hpf (0-5); Squamous Epithelial Cells - UA 0 SEEN /hpf (5-10); White Blood Cells 0 SEEN /hpf (0-5)
[2023-09-05 21:01] LABS: Color, Urine Yellow (Yellow); Glucose, Dipstick Normal (Normal); Ketone-Dipstick Negative (Negative); Leukocyte Esterase-Dipstick Negative /ul (Negative); Nitrite-Dipstick Negative (Negative); Occult Blood-Urine 10 /ul (Negative); Protein-Dipstick Negative (Negative); Urine Bilirubin Dipstick Negative (Negative); Urine Clarity Clear (Clear); Urine Urobilinogen Normal (Normal)
[2023-09-05] MEDS: LORazepam 1 MG Tablet PO (21:04)
[2023-09-05 23:59] VITALS: BP 156/81; PULSE 86; RESP 16; O2SAT 94
[2023-09-06] MEDS: traMADol 50 MG Tablet 100 MG PO (00:02)
== END 2023-09-06 00:45 | disposition home or self-care (01) ==
PROVIDERS: Emergency Provider Emergency Medicine; PCP Internal Medicine; Visit Provider Emergency Medicine
DX: R10.9 Unspecified abdominal pain (principal); J44.9 Chronic obstructive pulmonary disease, unspecified; R74.8 Abnormal levels of other serum enzymes; G89.29 Other chronic pain; I25.2 Old myocardial infarction; I25.5 Ischemic cardiomyopathy; G47.33 Obstructive sleep apnea (adult) (pediatric); I10 Essential (primary) hypertension; K21.9 Gastro-esophageal reflux disease without esophagitis; Z79.01 Long term (current) use of anticoagulants; Z79.899 Other long term (current) drug therapy; Z87.891 Personal history of nicotine dependence; Z86.718 Personal history of other venous thrombosis and embolism; Z86.73 Personal history of transient ischemic attack (TIA), and cerebral infarction without residual deficits
CPT/HCPCS: 74177; 80048; 80076; 81001; 83690; 85025; 96361; 96374; 96375; 99283; J7030; Q9967; A4216; J2405

== ENCOUNTER 2023-09-28 08:52 | Day surgery (SDC) | payer MEDICARE, MEDICAID, SELFPAY ==
[2023-09-28] VITALS (7 sets, daily range): BP systolic 70–114; BP diastolic 49–84; PULSE 63–65; RESP 16–18; TEMP 36.2–36.8; O2SAT 91–95; BMI 34.1
--- NOTE | 2023-09-28 09:16 | PCM.HP.STD ---
HPI - General HPI Narrative ECHO KERNS, is a 67 F who presents [facility] Medical History Anxiety and depression Arthritis Atherosclerotic heart disease of habematolel coronary artery without angina pectoris Back pain Bullous emphysema Calculus of left kidney Cardiology follow-up encounter Chest pain Chronic cough COPD (chronic obstructive pulmonary disease) COPD with asthma Depression Difficulty chewing DVT (deep venous thrombosis) Easy bruising Elevated troponin Esophagitis, unspecified without bleeding Essential hypertension Excessive bleeding Gastric reflux GERD (gastroesophageal reflux disease) High cholesterol History of CHF (congestive heart failure) History of echocardiogram History of edema History of irregular heartbeat History of non-ST elevation myocardial infarction (NSTEMI) (09/01/21) History of pain when walking History of renal disease History of stress test History of ulceration Hoarseness Hyperlipidemia Injury of back Ischemic cardiomyopathy Kidney stones Leg cramps Myocardial infarct Obesity (BMI 30.0-34.9) Old anterior wall myocardial infarction Opiate dependence EVELYN (obstructive sleep apnea) Osteoporosis Other chronic pain Personal history of transient ischemic attack (TIA), and cerebral infarction without residual deficits Post-menopausal Shortness of breath on exertion Smoker Sustained SVT TIA (transient ischemic attack) Tobacco abuse Unspecified combined 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 Wears glasses Home Medications atorvastatin 40 mg tablet (Lipitor) 40 mg PO QHS 30 days #30 tabs 01/04/23 [Rx Last Taken Unknown] clopidogrel 75 mg tablet (Plavix) 75 mg PO DAILY 30 days #30 tabs 01/04/23 [Rx Last Taken 09/25/23] lisinopril 2.5 mg tablet 2.5 mg PO DAILY 30 days #30 tabs 01/04/23 [Rx Last Taken 06/24/23] ondansetron 4 mg disintegrating tablet 4 mg PO Q8H PRN PRN Nausea #12 tabs 01/13/23 [Rx Last Taken Unknown] albuterol sulfate 90 mcg/actuation aerosol inhaler 2 puff inhalation Q6H PRN shortness of breath or wheezing #8.5 grams 02/17/23 [Rx Last Taken Unknown] budesonide-formoterol HFA 160 mcg-4.5 mcg/actuation aerosol inhaler (Symbicort) 1 puff inhalation BID #10.2 grams 02/17/23 [Rx Last Taken Unknown] inhalational spacing device (Aerochamber MV spacer) #1 ea 02/17/23 [Rx Last Taken Unknown] tiotropium bromide 2.5 mcg/actuation mist for inhalation (Spiriva Respimat) 2 puff inhalation DAILY #4 grams 02/17/23 [Rx Last Taken Unknown] pantoprazole 40 mg tablet,delayed release 40 mg PO Q12H #60 tabs 06/24/23 [Rx Last Taken 09/28/23] lorazepam 1 mg tablet (Ativan) 1 mg PO BID PRN anxiety 07/16/23 [History Last Taken 09/28/23] amiodarone 200 mg tablet 200 mg PO DAILY 07/22/23 [History Last Taken Unknown] carvedilol 6.25 mg tablet 6.25 mg PO Q12H 07/29/23 [History Last Taken 09/28/23] furosemide 20 mg tablet 20 mg PO Q12H 07/29/23 [History Last Taken Unknown] gabapentin 400 mg capsule 400 mg PO Q8H 07/29/23 [History Last Taken 09/28/23] nitroglycerin 0.4 mg sublingual tablet 0.4 mg buccal Q5M PRN chest pain 07/29/23 [History Last Taken Unknown] oxycodone myristate 9 mg capsule sprinkle extended release 12 hr(DON'T CRUSH) (Xtampza ER) 13.5 mg PO Q12H 07/29/23 [History Last Taken Unknown] sucralfate 1 gram tablet 1 g PO Q8H 07/29/23 [History Last Taken Unknown] albuterol sulfate 2.5 mg/3 mL (0.083 %) solution for nebulization 2.5 mg continuous nebulization Q6H PRN shortness of breath or wheezing 09/05/23 [History Last Taken Unknown] melatonin 3 mg capsule 3 mg PO QHS 09/05/23 [History Last Taken Unknown] Allergy/AdvReac Type Severity Reaction Status Date / Time No Known Allergies Allergy Verified 09/28/23 09:11 Family History Mother Hypertension CAD (coronary artery disease) CVA (cerebral vascular accident) Myocardial infarction Grandmother Myocardial infarction Surgical History History of cardiac catheterization History of hysterectomy History of left heart catheterization (01/20/22) History of total hysterectomy Hx of appendectomy Hx of esophagogastroduodenoscopy Social History household members: none Smoking Status: Former smoker alcohol intake: never substance use type: does not use Assessment & Plan Assessment/Plan (1) Barretts esophagus: QUALIFIERS: Sanchez's esophagus type: with low grade dysplasia Qualified Code(s): K22.710 - Sanchez's esophagus with low grade dysplasia PLAN: She was explained alternatives, risk, benefits including not withstanding bleeding, infection, sepsis, perforation, need for emergent urgent . She have an ASA of 3.
[2023-09-28] MEDS: Lactated Ringers 1,000 ML 15 ML IV (09:18)
--- NOTE | 2023-09-28 10:26 | OP.EGD_ITS ---
Patient Name: Marcia Mascorro Procedure Date: 09/28/2023 9:52 AM Date of : 1955 Age: 67 Procedure: Upper GI endoscopy Indications: Heartburn, Sanchez's esophagus with low grade dysplasia, Sanchez's esophagus with high grade dysplasia Providers: Rakesh Martinez DO Referring MD: Yee Mccray Wind Turbine Mechanical Engineer, [employer] Turbine Mechanical Engineer-c Medicines: Monitored Anesthesia Care Patient Profile: This is a 67 year old female. Refer to note in patient chart for documentation of history and physical. Patient has symptoms of chronic epigastric abdominal pain, chronic heartburn and chronic nausea. Her most recent EGD for Sanchez's biopsy. She is status post laparoscopic cholecystectomy. Complications: No immediate complications. Procedure: Pre-Anesthesia Assessment: - Prior to the procedure, a History and Physical was performed, and patient medications and allergies were reviewed. The patient is competent. The risks and benefits of the procedure and the sedation options and risks were discussed with the patient. All questions were answered and informed consent was obtained. Patient identification and proposed procedure were verified by the physician in the pre-procedure area. Mental Status Examination: alert and oriented. Airway Examination: normal oropharyngeal airway and neck mobility. Respiratory Examination: clear to auscultation. CV Examination: normal. ASA Grade Assessment: II - A patient with mild systemic disease. After reviewing the risks and benefits, the patient was deemed in satisfactory condition to undergo the procedure. The anesthesia plan was to use monitored anesthesia care (MAC). Immediately prior to administration of medications, the patient was re-assessed for adequacy to receive sedatives. The heart rate, respiratory rate, oxygen saturations, blood pressure, adequacy of pulmonary ventilation, and response to care were monitored throughout the procedure. The physical status of the patient was re-assessed after the procedure. After obtaining informed consent, the endoscope was passed under direct vision. Throughout the procedure, the patient's blood pressure, pulse, and oxygen saturations were monitored continuously. The Endoscope was introduced through the mouth, and advanced to the second part of duodenum. The upper GI endoscopy was accomplished without difficulty. The patient tolerated the procedure well. Scope In: 10:03:48 AM Scope Out: 10:17:06 AM Total Procedure Duration Time 0 hours 13 minutes 18 seconds Findings: There were esophageal mucosal changes secondary to established long-segment Sanchez's disease present in the middle third of the esophagus and in the lower third of the esophagus. The maximum longitudinal extent of these mucosal changes was 7 cm in length. Focal radiofrequency ablation of Sanchez's esophagus was performed. With the endoscope in place, the position and extent of the Sanchez's mucosa and the anatomic landmarks including top of gastric folds were noted. Endoscopic visualization identified an ablation site at 32 cm from the incisors. The Sanchez's mucosa was irrigated with N-acetylcysteine (Mucomyst) 1% mixed with water. Gastric contents were suctioned. The radiofrequency channel ablation catheter was introduced through the endoscope working channel. Sanchez's tissue was targeted. The endoscope with the ablation catheter was advanced to the areas of Sanchez's mucosa. The areas included islands and circumferential areas of Sanchez's mucosa. The endoscope with the channel ablation catheter was positioned under direct visualization so that the catheter was placed in contact with the surface of the Sanchez's mucosa. Energy was applied twice at 12 J/cm2. The channel ablation catheter was then removed through the endoscope working channel, and the ablation catheter was cleaned. The endoscope was left in place. The ablation zone was cleaned of coagulative debris. The ablation catheter was reinserted into the endoscope working channel. A second round of ablation was then performed. Energy was applied twice at 12 J/cm2 to retreat the areas of Sanchez's epithelium that had been treated with the first series of ablation. The ablation catheter was removed through the endoscope working channel. The areas of the esophagus where Sanchez's mucosa had been ablated were examined. Areas of visible Sanchez's esophagus were completely ablated. The endoscope was then removed. A medium-sized hiatal hernia was present. A few localized erosions with no stigmata of recent bleeding were found in the cardia. No gross lesions were noted in the duodenal bulb. Impression: - Esophageal mucosal changes secondary to established long-segment Sanchez's disease. Treated with radiofrequency ablation. - Medium-sized hiatal hernia. - Gastric erosions with no stigmata of recent bleeding. - No gross lesions in the duodenal bulb. - No specimens collected. Recommendation: - Discharge patient to home. - Resume previous diet. - Continue present medications. Procedure Code(s): --- Professional --- 47046, Esophagogastroduodenoscopy, flexible, transoral; with ablation of tumor(s), polyp(s), or other lesion(s) (includes pre- and post-dilation and guide wire passage, when performed) CPT copyright 2021 [employer]. All rights reserved. The codes documented in this report are preliminary and upon mechanism inspector review may be revised to meet current compliance requirements. Rakesh Martinez DO 09/28/2023 10:26:44 AM This report has been signed electronically. Number of Addenda: 0 Note Initiated On: 09/28/2023 9:52 AM
--- NOTE | 2023-09-28 10:27 | OP.CCLET_ITS ---
09/28/2023 Yee Mccray Np, Washer Carcass-c Re : Upper GI endoscopy procedure for Marcia Mascorro Dear Mahendra This procedure was performed on Thursday, September 28, 2023. My impressions and recommendations are as follows: Impressions : - Esophageal mucosal changes secondary to established long-segment Sanchez's disease. Treated with radiofrequency ablation. - Medium-sized hiatal hernia. - Gastric erosions with no stigmata of recent bleeding. - No gross lesions in the duodenal bulb. - No specimens collected. Recommendations : - Discharge patient to home. - Resume previous diet. - Continue present medications. My findings are described in the full procedure note, which is enclosed. If I can be of further assistance, please feel free to contact me at . Sincerely, Rakesh Martinez, 09/28/2023 10:26:44 AM This report has been signed electronically.
== END 2023-09-28 11:16 | disposition home or self-care (01) ==
LOC: EN 08:58 → AC 08:59
PROVIDERS: PCP Internal Medicine; Referring Provider Internal Medicine; Visit Provider Internal Medicine Gastroenterology
PROC: 0DJ08ZZ Inspection of Upper Intestinal Tract, Via Natural or Artificial Opening Endoscopic (ICD-10-PCS; CPT 43235; principal; 2023-09-28 09:55)
DX: K22.710 Barrett's esophagus with low grade dysplasia (principal); J43.9 Emphysema, unspecified; K21.9 Gastro-esophageal reflux disease without esophagitis; K44.9 Diaphragmatic hernia without obstruction or gangrene; I25.10 Atherosclerotic heart disease of native coronary artery without angina pectoris; E78.00 Pure hypercholesterolemia, unspecified; I10 Essential (primary) hypertension; I25.2 Old myocardial infarction; F17.210 Nicotine dependence, cigarettes, uncomplicated; Z90.49 Acquired absence of other specified parts of digestive tract; Z79.02 Long term (current) use of antithrombotics/antiplatelets; Z79.51 Long term (current) use of inhaled steroids; Z79.899 Other long term (current) drug therapy; Z86.73 Personal history of transient ischemic attack (TIA), and cerebral infarction without residual deficits
CPT/HCPCS: 43270; J7120; J2405

== ENCOUNTER 2023-09-29 17:43 | Emergency (ER) | payer MEDICARE, MEDICAID, SELFPAY ==
[2023-09-29 17:45] VITALS: BP 134/69; PULSE 76; RESP 16; TEMP 36.4; O2SAT 95; BMI 35.2
--- NOTE | 2023-09-29 18:04 | EDS_ITS ---
HPI History of Present Illness Chief Complaint: Chest Pain Narrative Narrative: 67-year-old female past medical history of GERD, COPD, hypertension, states she had an EGD performed yesterday by Dr. Martinez where he found cancer cells . He allegedly cauterized and biopsied the area, and told her that he needed to do it a few more times. Since then, she has been having chest pain and epigastric pain but no nausea or vomiting. States this morning she had chest pain and left arm pain, which subsided after she received nitroglycerin. She presents to the emergency department via EMS with continued chest pain and pressure. [facility] Medical History Anxiety and depression Arthritis Atherosclerotic heart disease of [place] coronary artery without angina pectoris Back pain Bullous emphysema Calculus of left kidney Cardiology follow-up encounter Chest pain Chronic cough COPD (chronic obstructive pulmonary disease) COPD with asthma Depression Difficulty chewing DVT (deep venous thrombosis) Easy bruising Elevated troponin Esophagitis, unspecified without bleeding Essential hypertension Excessive bleeding Gastric reflux GERD (gastroesophageal reflux disease) High cholesterol History of CHF (congestive heart failure) History of echocardiogram History of edema History of irregular heartbeat History of non-ST elevation myocardial infarction (NSTEMI) (09/01/21) History of pain when walking History of renal disease History of stress test History of ulceration Hoarseness Hyperlipidemia Injury of back Ischemic cardiomyopathy Kidney stones Leg cramps Myocardial infarct Obesity (BMI 30.0-34.9) Old anterior wall myocardial infarction Opiate dependence EVELYN (obstructive sleep apnea) Osteoporosis Other chronic pain Personal history of transient ischemic attack (TIA), and cerebral infarction without residual deficits Post-menopausal Shortness of breath on exertion Smoker Sustained SVT TIA (transient ischemic attack) Tobacco abuse Unspecified combined 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 Wears glasses Home Medications atorvastatin 40 mg tablet (Lipitor) 40 mg PO QHS 30 days #30 tabs 01/04/23 [Rx Last Taken Unknown] clopidogrel 75 mg tablet (Plavix) 75 mg PO DAILY 30 days #30 tabs 01/04/23 [Rx Last Taken 09/25/23] lisinopril 2.5 mg tablet 2.5 mg PO DAILY 30 days #30 tabs 01/04/23 [Rx Last Taken 06/24/23] ondansetron 4 mg disintegrating tablet 4 mg PO Q8H PRN PRN Nausea #12 tabs 01/13/23 [Rx Last Taken Unknown] albuterol sulfate 90 mcg/actuation aerosol inhaler 2 puff inhalation Q6H PRN shortness of breath or wheezing #8.5 grams 02/17/23 [Rx Last Taken Unknown] budesonide-formoterol HFA 160 mcg-4.5 mcg/actuation aerosol inhaler (Symbicort) 1 puff inhalation BID #10.2 grams 02/17/23 [Rx Last Taken Unknown] inhalational spacing device (Aerochamber MV spacer) #1 ea 02/17/23 [Rx Last Taken Unknown] tiotropium bromide 2.5 mcg/actuation mist for inhalation (Spiriva Respimat) 2 puff inhalation DAILY #4 grams 02/17/23 [Rx Last Taken Unknown] pantoprazole 40 mg tablet,delayed release 40 mg PO Q12H #60 tabs 06/24/23 [Rx Last Taken 09/28/23] lorazepam 1 mg tablet (Ativan) 1 mg PO BID PRN anxiety 07/16/23 [History Last Taken 09/28/23] amiodarone 200 mg tablet 200 mg PO DAILY 07/22/23 [History Last Taken Unknown] carvedilol 6.25 mg tablet 6.25 mg PO Q12H 07/29/23 [History Last Taken 09/28/23] furosemide 20 mg tablet 20 mg PO Q12H 07/29/23 [History Last Taken Unknown] gabapentin 400 mg capsule 400 mg PO Q8H 07/29/23 [History Last Taken 09/28/23] nitroglycerin 0.4 mg sublingual tablet 0.4 mg buccal Q5M PRN chest pain 07/29/23 [History Last Taken Unknown] oxycodone myristate 9 mg capsule sprinkle extended release 12 hr(DON'T CRUSH) (Xtampza ER) 13.5 mg PO Q12H 07/29/23 [History Last Taken Unknown] sucralfate 1 gram tablet 1 g PO Q8H 07/29/23 [History Last Taken Unknown] albuterol sulfate 2.5 mg/3 mL (0.083 %) solution for nebulization 2.5 mg continuous nebulization Q6H PRN shortness of breath or wheezing 09/05/23 [History Last Taken Unknown] melatonin 3 mg capsule 3 mg PO QHS 09/05/23 [History Last Taken Unknown] Allergy/AdvReac Type Severity Reaction Status Date / Time No Known Allergies Allergy Verified 09/29/23 17:44 Family History Mother Hypertension CAD (coronary artery disease) CVA (cerebral vascular accident) Myocardial infarction Grandmother Myocardial infarction Surgical History History of cardiac catheterization History of hysterectomy History of left heart catheterization (01/20/22) History of total hysterectomy Hx of appendectomy Hx of esophagogastroduodenoscopy Social History household members: none Smoking Status: Former smoker alcohol intake: never substance use type: does not use ROS ROS ED ROS Narrative Constitutional: No fever, no chills. HEENT: No sore throat. No neck pain. No loss of vision. No rhinorrhea. Cardiovascular: Positive chest pain. No palpitations. No pedal edema. Respiratory: No cough, no shortness of breath. Abdominal: Epigastric to left upper quadrant abdominal pain. No nausea. No vomiting. Genitourinary: No dysuria. No hematuria. Musculoskeletal: No myalgias. No arthralgias. Neurologic: No headaches. No dizziness. No lightheadedness. Skin: No rash. No change in color. Psychiatric: No depression. No anxiety. EXAM Physical Exam Narrative Exam Narrative: Afebrile. Vital signs noted. HEENT: Normocephalic. Atraumatic. PERRL, EOMI. Neck soft and supple. No point tenderness or step off. Cardiovascular: Regular rate and rhythm. No murmurs, rubs, or gallops appreciated. Respiratory: No tachypnea. Lungs clear to auscultation bilaterally. Gastrointestinal: Abdomen soft, nontender, with normoactive bowel sounds. No rebound or guarding. Neurological: Awake. Alert. Nonfocal, nonlateralizing. Skin: No rash. Normal color. No pallor. Musculoskeletal: No pedal edema. Full range of motion extremities. Const Vital Signs: 09/29/23 17:45 09/29/23 17:44 09/29/23 18:13 Temperature 97.6 F L Temperature Source Temporal Pulse Rate 76 Respiratory Rate 16 Respiratory Effort Normal Blood Pressure 134/69 H Blood Pressure Mean 90 Pulse Ox 95 Oxygen Delivery Method Room Air Room Air 09/29/23 19:53 Temperature Temperature Source Pulse Rate 70 Respiratory Rate 13 Respiratory Effort Blood Pressure 159/83 H Blood Pressure Mean 108 Pulse Ox 95 Oxygen Delivery Method Room Air MDM MDM MDM Narrative Medical decision making narrative: In the differential diagnosis would be acute coronary syndrome versus esophageal rupture versus pancreatitis versus gastritis. Comprehensive workup was pursued. She does have a history of hypertension and reported cardiomyopathy. EKG was obtained and interpreted by myself independently as normal sinus rhythm at 81 bpm without ectopy or acute ST changes. No STEMI. I feel that cardiac ischemia/STEMI has been ruled out. I will obtain troponins serially. She was given a GI cocktail for pain. Chest x-ray will also be obtained along with CBC, CMP, and lipase. I reviewed the patient's endoscopy report and she has longstanding Sanchez's esophagus which was ablated, and additionally, a medium sized hiatal hernia. I do feel that this would be some of her chest pain etiology. I reviewed her laboratory work. She has normal white count of 10.2, hemoglobin stable at 11.6, hematocrit 35.2, platelet count normal at 258. Electrolyte panel shows chloride slightly elevated at 109 which I think is nonspecific, glucose is appropriately elevated at 122 with an anion gap low at 4. AST low at 10 and a all T low at 12 with alk phos normal at 107. Lipase is normal at 16. I do not think she has a pancreatitis. Initially, she was given a GI cocktail which she states helped with her chest pain, but she was having epigastric to left upper quadrant pain. She was given 1 dose of morphine, and CT of the abdomen pelvis was obtained. I reviewed the radiology report and there is no acute process, no obstruction, stable pneumobilia with stent placement. Her initial high-sensitivity troponin is 34 with repeat being 31. I was able to discuss patient with Dr. Martinez with gastroenterology who agrees this is longstanding pain from her Sanchez's esophagus. At this point in time, was felt that she could be return to the long term facility. I do not feel she requires admission at this time. She continued to complain of pain so she was administered an intramuscular injection of Bentyl. I feel she can be discharged to follow-up. Disposition is discharged to long term facility in stable condition. History & Record Review Discussion w/independent historian: Patient Additional record(s) reviewed:: Prior outpatient record, Prior ED visit and Prior labs Lab Data Attestation: I reviewed the patient's lab results. Labs: Laboratory Results - last 24 hr 09/29/23 09/29/23 18:17 20:20 WBC 10.2 RBC 3.76 L Hgb 11.6 L Hct 35.2 L MCV 93.6 MCH 30.9 MCHC 33.0 RDW Std Deviation 44.2 H RDW Coeff of Sariah 12.8 Plt Count 258 MPV 9.0 Immature Gran % (Auto) 0.600 Neut % (Auto) 74.3 H Lymph % (Auto) 18.9 L [place] % (Auto) 5.8 Eos % (Auto) 0.2 Baso % (Auto) 0.2 Absolute Neuts (auto) 7.6 Absolute Lymphs (auto) 1.94 Nucleated RBC % 0 Sodium 141 Potassium 3.9 Chloride 109 H Carbon Dioxide 28.0 Anion Gap 4 L BUN 16 Creatinine 0.93 Estim Creat Clear Calc 70.55 Est GFR (MDRD) Af Amer 78 Est GFR (MDRD) Non-Af 64 BUN/Creatinine Ratio 17.2 Glucose 122 H Calcium 9.2 Total Bilirubin 0.30 AST 10 L ALT 12 L Alkaline Phosphatase 107 Troponin I High Sens 34 31 Total Protein 6.8 Albumin 2.9 L Globulin 3.9 Albumin/Globulin Ratio 0.7 L Lipase 16 Radiography Diagnostic Testing: Clinical Impression(s) from Imaging Studies Chest X-Ray 09/29/23 18:15 IMPRESSION: No acute pulmonary process Electronically Signed: Bentley Khan MD at 18:47 EST Reading Location ID and State: [facility] / MD , Service support , Abdomen/Pelvis CT 09/29/23 18:39 IMPRESSION: Stable pneumobilia from stent placement within the biliary tree. No complications or change since the previous study. Stable nonobstructing nephrolithiasis Stable retrocardiac hiatal hernia Colonic diverticulosis without evidence of acute diverticulitis. There is nonspecific thickening in the sigmoid and an underlying lesion cannot be excluded. Small bowel ileus Degenerative bony changes Stable aneurysmal dilatation of the infrarenal abdominal aorta No significant interval change Electronically Signed: Bentley Khan MD at 19:20 EST , Discharge Plan Triage Chief Complaint: Chest Pain ED Provider: Waqas Hart Dx/Rx/DC Orders Clinical Impression: Abdominal pain, Chest pain Instructions: ED Abdominal Pain Unkn Cause Fem, ED Chest Pain, Uncertain Cause Prescriptions: No Action budesonide-formoterol [Symbicort] 160-4.5 mcg/actuation HFA aerosol inhaler 1 puff inhalation BID Qty: 10.2 11RF Spiriva Respimat 2.5 mcg/actuation mist 2 puff inhalation DAILY Qty: 4 11RF albuterol sulfate 90 mcg/actuation HFA aerosol inhaler 2 puff inhalation Q6H MDD 10 puffs PRN (Reason: shortness of breath or wheezing) Qty: 8.5 6RF Rx Instructions: This inhaler must be used with a spacer device. (DME) Aerochamber MV Spacer See Rx Instructions .ROUTE .MEDSUPPLY Qty: 1 0RF Rx Instructions: As directed lorazepam [Ativan] 1 mg tablet 1 mg PO BID PRN (Reason: anxiety) atorvastatin [Lipitor] 40 mg tablet 40 mg PO QHS 30 Days Qty: 30 0RF clopidogrel [Plavix] 75 mg tablet 75 mg PO DAILY 30 Days Qty: 30 0RF lisinopril 2.5 mg tablet 2.5 mg PO DAILY 30 Days Qty: 30 0RF ondansetron 4 mg tablet,disintegrating 4 mg PO Q8H PRN PRN (Reason: Nausea) Qty: 12 0RF pantoprazole 40 mg tablet,delayed release (DR/EC) 40 mg PO Q12H Qty: 60 3RF albuterol sulfate 2.5 mg /3 mL (0.083 %) solution for nebulization 2.5 mg continuous nebulization Q6H PRN (Reason: shortness of breath or wheezing) melatonin 3 mg capsule 3 mg PO QHS amiodarone 200 mg tablet 200 mg PO DAILY gabapentin 400 mg capsule 400 mg PO Q8H carvedilol 6.25 mg tablet 6.25 mg PO Q12H furosemide 20 mg tablet 20 mg PO Q12H nitroglycerin 0.4 mg tablet, sublingual 0.4 mg buccal Q5M PRN (Reason: chest pain) Xtampza ER 9 mg cap,sprinkl,ER12hr(DONT CRUSH) 13.5 mg PO Q12H sucralfate 1 gram tablet 1 g PO Q8H Primary Care Provider: Danny Green Referrals: Yee Mccray CORPORATE COUNSELOR, CORPORATE COUNSELOR-C [Non-Staff -Ordering Privileges] - As soon as possible Activity Restrictions/Additional Instructions: Follow-up with your primary care provider, and with Dr. Martinez as soon as possible. Disposition Disposition: Home, Self Care
[2023-09-29] MEDS: Mag Hydrox/Al Hydrox/Simeth 30 ML UDC PO (18:14)
[2023-09-29] MEDS: 0.9% Normal Saline (1000mL) 1,000 ML 1000 ML IV (18:14)
--- NOTE | 2023-09-29 18:15 | RAD_ITS ---
STUDY: X-RAY CHEST REASON FOR EXAM: Female, 67 years old. Chest pain/pressure TECHNIQUE: Single AP portable view of the chest. COMPARISON: 07/19/2023 FINDINGS: EKG leads overlie the chest The lungs are clear and expanded. There is no demonstrated pleural abnormality. Normal size heart. Normal mediastinum and dru. Normal visualized pulmonary arteries. There is atherosclerotic calcification of the aortic arch with tortuosity. There are diffuse degenerative changes of the visualized thoracic spine. Normal visualized ribs, clavicles, and shoulders. There is no demonstrated abnormality of the visualized soft tissue structures of the upper abdomen. RAD/Chest 1 View (Portable) IMPRESSION: No acute pulmonary process Electronically Signed: Bentley Khan MD at 18:47 EST ,
--- OUTSIDE RECORDS SUMMARY | 2023-09-29 18:21 | XMS RPT_ITS | CCD ---
Author Name Unknown Address [address] [place] [address] Organization [facility] Care Team Providers Care Financial Planning Consultant Name Role Phone Kennedy NGUYEN, Alessio Cali Unavailable [phone] Emily Cook Unavailable Unavailable Emily Cook Unavailable Unavailable Unavailable Primary Care Provider Unavailabl e Unavailable Primary Care Provider Unavailabl e Unavailable Primary Care Provider Unavailabl e Familia MARTINEZ, Gabriel Quiñones Primary Care Provider NORA CRESPO Attending Unavailable CHAPPELL, LYNDSEY Referring Unavailable TALAMPAS, GABRIEL D Primary Care Unavailable LYNDSEY CHAPPELL Attending Unavailable TALAMPAS, GABRIEL D Primary Care Unavailable ZAKNORA Referring Unavailable TALAMPAS, GABRIEL D Primary Care Unavailable ZAK NORA Referring Unavailable TALAMPAS, GABRIEL D Primary Care Unavailable ZAK NORA Referring Unavailable TALAMPAS, GABRIEL D Primary Care Unavailable ZAK NORA Referring Unavailable TALAMPAS, GABRIEL D Primary Care Unavailable NORA CRESPO Referring Unavailable TALAMPAS, GABRIEL D Primary Care Unavailable NORA CRESPO Attending Unavailable TALAMPAS, GABRIEL D Primary Care Unavailable Allergies Allergy Classification Reported Allergen(s) Allergy Type Date of Onset Reaction(s) Facility (6 sources) morphine; Translations: [MORPHINE] allergy to substance 2011 anaphylaxis [facility] Work Phone: (3 sources) NKDA drug allergy 01-02-2017 [facility] Work Phone: Medications Current Medications Medication Drug [...] Coronary arteriosclerosis; Translations: [Atherosclerotic heart disease of [place] coronary artery without angina pectoris] Onset: 06-21-2012 [...] (1 source) Polyneuropathy, unspecified; Translations: [Neuropathy] Onset: 05-01-2023 Chronic Other nervous system disorders (1 source) [...] 2011 Episodic Other aftercare (3 sources) Other senior care (current) drug therapy; Translations: [Other salvage determiner (current) drug therapy] Onset: 01-02-2017 01-02-2017 Episodic Other aftercare (4 sources) Drug therapy finding; Translations: [Other senior care (current) drug therapy] Onset: 04-27-2018 04-27-2018 Episodic [...] Results Test Name Value Interpretation Reference Range [facility] Vital Signs Date Time Vital Sign Value Performing Clinician Facility 01-13-2023 14:18-0400 Body weight 83.01 kg Lyndsey Chappell MEDICAL INFORMATION SPECIALIST.PROMOTIONAL REPRESENTATIVE Work Phone: [facility] 01-13-2023 14:18-0400 Diastolic blood pressure 84 mm[Hg] Lyndsey Chappell MEDICAL INFORMATION SPECIALIST.PROMOTIONAL REPRESENTATIVE Work Phone: [facility] 01-13-2023 14:18-0400 Heart rate 83 /min Lyndsey Chappell MEDICAL INFORMATION SPECIALIST.PROMOTIONAL REPRESENTATIVE Work Phone: [facility] 01-13-2023 14:18-0400 Respiratory rate 16 /min Lyndsey Chappell MEDICAL INFORMATION SPECIALIST.PROMOTIONAL REPRESENTATIVE Work Phone: [facility] 01-13-2023 14:18-0400 SaO2% (BldA) [Mass fraction] 97 % Lyndsey Chappell MEDICAL INFORMATION SPECIALIST.PROMOTIONAL REPRESENTATIVE Work Phone: [facility] 01-13-2023 14:18-0400 Systolic blood pressure 118 mm[Hg] Lyndsey Chappell MEDICAL INFORMATION SPECIALIST.PROMOTIONAL REPRESENTATIVE Work Phone: [facility] 09-23-2022 14:37-0500 Body height 162.6 cm Nora Zak MEDICAL INFORMATION SPECIALIST.DOPE WEIGH OPERATOR Work Phone: [facility] 09-23-2022 14:37-0500 Body weight 83.01 kg Nora Zak MEDICAL INFORMATION SPECIALIST.DOPE WEIGH OPERATOR Work Phone: [facility] 09-23-2022 14:37-0500 Diastolic blood pressure 60 mm[Hg] Nora Zak MEDICAL INFORMATION SPECIALIST.DOPE WEIGH OPERATOR Work Phone: [facility] 09-23-2022 14:37-0500 Heart rate 58 /min Nora Zak MEDICAL INFORMATION SPECIALIST.DOPE WEIGH OPERATOR Work Phone: [facility] 09-23-2022 14:37-0500 SaO2% (BldA) [Mass fraction] 92 % Nora Zak MEDICAL INFORMATION SPECIALIST.DOPE WEIGH OPERATOR Work Phone: [facility] 09-23-2022 14:37-0500 Systolic blood pressure 108 mm[Hg] Nora Zak MEDICAL INFORMATION SPECIALIST.DOPE WEIGH OPERATOR Work Phone: [facility] 01-14-2022 16:12-0400 Body temperature 99.3 [degF] Pascale Mata MEDICAL INFORMATION SPECIALIST.DOPE WEIGH OPERATOR Work Phone: [facility] 01-14-2022 16:12-0400 Body weight 84.28 kg Pascale Mata MEDICAL INFORMATION SPECIALIST.DOPE WEIGH OPERATOR Work Phone: [facility] 01-14-2022 16:12-0400 Diastolic blood pressure 84 mm[Hg] Pascale Mata MEDICAL INFORMATION SPECIALIST.DOPE WEIGH OPERATOR Work Phone: [facility] 01-14-2022 16:12-0400 Heart rate 112 /min Pascale Mata MEDICAL INFORMATION SPECIALIST.DOPE WEIGH OPERATOR Work Phone: [facility] 01-14-2022 16:12-0400 Respiratory rate 20 /min Pascale Mata MEDICAL INFORMATION SPECIALIST.DOPE WEIGH OPERATOR Work Phone: [facility] 01-14-2022 16:12-0400 SaO2% (BldA) [Mass fraction] 94 % Pascale Mata MEDICAL INFORMATION SPECIALIST.DOPE WEIGH OPERATOR Work Phone: [facility] 01-14-2022 16:12-0400 Systolic blood pressure 146 mm[Hg] Pascale Mata MEDICAL INFORMATION SPECIALIST.DOPE WEIGH OPERATOR Work Phone: [facility] 07-26-2021 17:26-0500 Diastolic blood pressure 90 mm[Hg] [facility] 07-26-2021 17:26-0500 Heart rate 80 /min [facility] 07-26-2021 17:26-0500 Respiratory rate 18 /min [facility] 07-26-2021 17:26-0500 SaO2% (BldA) [Mass fraction] 98 % [facility] 07-26-2021 17:26-0500 Systolic blood pressure 135 mm[Hg] [facility] 07-26-2021 13:58-0500 Body temperature 98.01 [degF] [facility] 06-18-2021 11:41-0400 Body temperature 98.1 [degF] Paige Chacha DO Work Phone: [facility] Work Phone: 06-18-2021 11:41-0400 Diastolic blood pressure 89 mm[Hg] Paige Chacha DO Work Phone: [facility] Work Phone: 06-18-2021 11:41-0400 Heart rate 73 /min Paige Chacha DO Work Phone: [facility] Work Phone: 06-18-2021 11:41-0400 Respiratory rate 12 /min Paige Chacha DO Work Phone: [facility] Work Phone: 06-18-2021 11:41-0400 SaO2% (BldA) [Mass fraction] 94 % Paige Burnham DO Work Phone: [facility] Work Phone: 06-18-2021 11:41-0400 Systolic blood pressure 145 mm[Hg] Paige Burnham DO Work Phone: [facility] Work Phone: 06-15-2021 20:07-0400 Body height 167.6 cm Paige Burnham DO Work Phone: [facility] Work Phone: 06-15-2021 20:07-0400 Body mass index (BMI) [Ratio] 25.82 kg/m2 Paige Burnham DO Work Phone: [facility] Work Phone: 06-15-2021 20:07-0400 Body weight 72.58 kg Paige Burnham DO Work Phone: [facility] Work Phone: 06-14-2021 22:40-0400 Heart rate 84 /min Juice Nesheim DO Work Phone: [facility] Work Phone: 06-14-2021 22:40-0400 SaO2% (BldA) [Mass fraction] 94 % Juice Nesheim DO Work Phone: [facility] Work Phone: 06-14-2021 22:07-0400 Body temperature 97.59 [degF] Juice Nesheim DO Work Phone: [facility] Work Phone: 06-14-2021 22:07-0400 Diastolic blood pressure 83 mm[Hg] Juice Nesheim DO Work Phone: [facility] Work Phone: 06-14-2021 22:07-0400 Respiratory rate 14 [...] 58.97 kg Juice Nesheim DO Work Phone: [facility] Work Phone: 01-02-2017 09:27-0400 BMI (Body Mass Index) 30.02 kg/m2 Emilyrogerio [facility] Work Phone: 01-02-2017 09:27-0400 BP Diastolic 82 mm[Hg] Emily Joey [facility] Work Phone: 01-02-2017 09:27-0400 BP Systolic 120 mm[Hg] Emily Marthey [facility] Work Phone: 01-02-2017 09:27-0400 Height 166.37 cm Emily Joy [facility] Work Phone: 01-02-2017 09:27-0400 Pulse (Heart Rate) 100 /min Emily Marthey [facility] Work Phone: 01-02-2017 09:27-0400 Respiratory Rate 14 /min Emily Duanehey [facility] Work Phone: 01-02-2017 09:27-0400 Weight 83.1 kg Emily Duanehey [facility] Work Phone: 01-03-2016 08:40-0400 BSA (Body Surface Area) 1.92 m2 Emily Marthey [facility] Work Phone: 12-16-2011 15:44-0400 Body [...] Gabriel gregory MD Work Phone: [facility] [place] Start: 05-04-2023 Telephone encounter Nora Jauregui er MEDICAL INFORMATION SPECIALIST.DOPE WEIGH OPERATOR Work Phone: [facility] [place] Procedures Date Procedure Procedure Detail Performing Clinician Start: 05-01-2023 Nerve conduction angela dies 5-6 studies Nora Zak MEDICAL INFORMATION SPECIALIST.DOPE WEIGH OPERATOR Work Phone: Start: 09-30-2022 Us retroperitoneal r eal time w/image limited Nora Zak MEDICAL INFORMATION SPECIALIST.DOPE WEIGH OPERATOR Work Phone: Start: 09-23-2022 Urnls dip stick/tabl et rgnt auto w/o microscopy Nora Zak MEDICAL INFORMATION SPECIALIST.DOPE WEIGH OPERATOR Work Phone: Start: 07-26-2021 Radex ribs uni w/pos teroant ch minimum 3 views Piero RIBERA Work Phone: Start: 06-18-2021 Procalcitonin (pct) Pra naseem Hill MD Work Phone: Start: 06-17-2021 Fibrin dgradj produc ts d-dimer quantitative Jesus Hill MD Work Phone: Start: 06-17-2021 Assay of lactate Jesus Hill MD Work Phone: Start: 06-17-2021 C-reactive protein Jessi Hill MD Work Phone: Start: 06-16-2021 Assay of ferritin Ruben Hill MD Work Phone: Start: 06-16-2021 C-reactive protein Jessi Hill MD Work Phone: Start: 06-15-2021 Ct angiography chest w/contrast/noncontrast Paige Burnham DO Work Phone: Start: 06-15-2021 Radiologic exam ches t single view Paige Burnham DO Work Phone: Start: 06-15-2021 POCT VENOUS Paige contreras DO Work Phone: Start: 06-15-2021 Comprehensive metabolic panel Paige Burnham DO Work Phone: Start: 06-15-2021 End: 06-15-2021 Ecg routine ecg w/least 12 lds w/i&r Paige Burnham DO Work Phone: Start: 06-14-2021 C-reactive [...] Work Phone: Start: 06-14-2021 COVID-19, RAPID Juice G Nesheim DO Work Phone: Start: 06-14-2021 End: 06-14-2021 Basic metabolic panel calcium total Juice G Nesheim DO Work Phone: Start: 06-14-2021 Radiologic exam ches t single view Juice G Nesheim DO Work Phone: Start: 06-14-2021 Ecg routine ecg w/le ast 12 lds w/i&r Juice G Mauraheim DO Work Phone: Start: 08-23-2019 Electrocardiogram Start: 01-02-2017 End: 01-19-2017 Echocardiography Danny Best MD Start: 04-16-2016 Colonoscopy Pascale Patricia ggs MEDICAL INFORMATION SPECIALIST.DOPE WEIGH OPERATOR Work Phone: Start: 01-03-2016 End: 01-03-2016 Follow [...] Activity Detail Author Start: 04-16-2026 Colonoscopy COLONOSCOPY [facility] Start: 04-16-2026 COLORECTAL CANCER SCREENING COLORECTAL CANCER SCREENING [facility] Start: 09-23-2025 DIABETES SCREEN DIABETES SCREEN [facility] Start: 04-24-2024 ANNUAL PCP TEAM FRUIT DRYER BIA DISEASE VISIT ANNUAL PCP TEAM CHRONIC DISEASE VISIT [facility] Start: 04-24-2024 BP CONTROLLED (<130/80) BP CONTROLLE D (<130/80) [facility] Start: 04-24-2024 Hepatitis B screening URINE ALBUMIN:CREATININE RATIO [facility] Start: 04-24-2024 Hepatitis B surface antibody level LDL CHOLESTEROL [facility] Start: 04-22-2024 LIPID SCREEN LIPID SCREEN [facility] Start: 04-15-2024 ANNUAL PCP TEAM FRUIT DRYER BIA DISEASE VISIT ANNUAL PCP TEAM CHRONIC DISEASE VISIT [facility] Start: 10-25-2023 Hemoglobin A1c/Hemoglobin.total in Blood HBA1C [facility] Start: 09-23-2023 ANNUAL PCP TEAM FRUIT DRYER BIA DISEASE VISIT ANNUAL PCP TEAM CHRONIC DISEASE VISIT [facility] Start: 09-23-2023 BP CONTROLLED (<130/80) BP CONTROLLE D (<130/80) [facility] Start: 05-08-2023 Influenza vaccination C [facility] Start: 03-23-2023 Hemoglobin A1c/Hemoglobin.total in Blood HBA1C [facility] Start: 09-23-2022 End: 11-23-2022 Alpha 1 antitrypsin [Mass/volume] in Serum or Plasma [facility] Work Phone: Immunizations Immunization Date Immunization Notes Care Provider Antonella doss 07-22-2018 influenza, seasonal, injectable, preservative free Nora Crespo MEDICAL INFORMATION SPECIALIST.DOPE WEIGH OPERATOR Work Phone: [facility] Work Phone: 07-22-2018 influenza virus vacc ine, unspecified formulation Us 2 Work Phone: [facility] 06-24-2017 influenza, injectabl e, quadrivalent, contains preservative aPscale Mata MEDICAL INFORMATION SPECIALIST.DOPE WEIGH OPERATOR Work Phone: [facility] 06-24-2017 pneumococcal conjuga te vaccine, 13 valent Pascale Mata MEDICAL INFORMATION SPECIALIST.DOPE WEIGH OPERATOR Work Phone: [facility] 06-07-2014 influenza, injectabl e, quadrivalent, preservative free Noar Zak MEDICAL INFORMATION SPECIALIST.DOPE WEIGH OPERATOR Work Phone: [facility] Work Phone: 06-07-2014 influenza, seasonal, injectable, preservative free Nora Zak MEDICAL INFORMATION SPECIALIST.DOPE WEIGH OPERATOR Work Phone: [facility] Work Phone: 06-05-2014 influenza, seasonal, injectable Pascale Mata MEDICAL INFORMATION SPECIALIST.DOPE WEIGH OPERATOR Work Phone: [facility] Work Phone: 06-05-2014 pneumococcal polysaccharide vaccine, 23 valent Pascale Mata MEDICAL INFORMATION SPECIALIST.DOPE WEIGH OPERATOR Work Phone: [facility] Work Phone: Payers Date Payer Category Payer Private Health Insurance [id number] 2022 Medicare [id number] 2022 Medicare [id number] 2022 Medicaid [id number] 2022 Medicaid [id number] 2015 Medicare [id number] 2015 Unknown [id number] Social History Date Type Detail Facility Start: 06-14-2021 End: 08-28-2022 Tobacco smoking status AZIS Current every day smoker [facility] Work Phone: History of tobacco use Cigarette Smoker [facility] Start: 06-14-2021 End: 01-08-2023 Cigarettes smoked current (pack per day) - Reported [facility] Start: 06-14-2021 End: 06-16-2021 Tobacco use and exposure Current user [facility] Start: 06-14-2021 End: 06-16-2021 Alcohol intake Ex-drinker (finding) [facility] Work Phone: Start: 1955 Sex Assigned At Not on file [facility] Work Phone: Exposure to SARS-CoV -2 (event) Yes [facility] Start: 01-04-2022 End: 01-20-2022 Exposure to SARS-CoV-2 (event) Not sure [facility] Start: 01-14-2022 End: 04-24-2023 Alcohol intake Current non-drinker of alcohol (finding) [facility] Start: 09-22-2019 End: 08-28-2022 Tobacco Comment 7 cigarette [facility] Start: 09-22-2019 End: 09-23-2022 Tobacco use and exposure Smokeless tobacco non-user [facility] Work Phone: Start: 09-23-2022 [facility]as[facility] tobacco smoker [facility] Work Phone: Start: 01-08-2023 End: 04-15-2023 Tobacco use panel [facility] PHQ2 Score 0 [facility] c Clinical Notes 04-16-2016 to 08-12-2023 Telephone Encounter - Marisa Ramos LPN - 05/04/2023 4:25 PM EDTTelephone Encounter - Nora Crespo APRN.CNP - 05/04/2023 10:39 AM Cordell Kunz DO - 05/01/2023 1:32 PM EDTInstructions Note Date & Type Note Facility 08-12-2023 Note Patient Outreach (IN TMMN) ECHO MASCORRO ([id number]) 1955 F CHT Date Time Provider Department 08/12/23 GABRIEL GALVAN During your visit today, we recorded the following information about you: Allergies As of Date: 08/12/2023 (No Known Allergies) Date Reviewed: 04/24/2023 Reviewed by: Marisa Ramos LPN - Fully Assessed Visit Diagnosis:Encounter for screening mammogram for breast cancer [Z12.31] Order(s):[facility] SCREENING [[id number]] Order #: [id number] FUTURE Prescriptions as of 08/17/2023 - Cholecalciferol, [...] [I47.10] 01/13/2023 En (more content not included)... [facility] 05-04-2023 Miscellaneous Notes PATIENT NOTIFIED OF SAME. [...] Linh Villalobos RN documented in this encounter [facility] 05-01-2023 Note HNO ID: [id number] Author: Cordell Kirkpatrick DO Service: ? Author [...] Care Visit completed when applicable. PATRIC Alva DO [facility] 05-01-2023 History of Present illness Narrative [facility] [...] Care Visit completed when applicable. Penny [employer] Noble Kirkpatrick DO documented in this encounter [facility] 04-30-[address] scheduled, 05/13/2023. Randee Dobbs LPN New script sent for RX, please help with setting up Ct of lungs. Thanks! Patient states that vitamin D. Order was sent to wrong pharmacy. Patient has to use [facility] which is pharmacy for [facility] which she currently is at. Patient also requesting physical therapy orders to be faxed to [facility] [phone]. Faxed as requested. Linh Villalobos RN Please [...] consult, Pt didn't want to travel to [place] or any other location. Faxed over orders to [facility] (Dr. Ochoa). . I assume orders have already been sent over, so let Pt know [facility] should be calling her, or let her know she could call in to schedule. Pt states she isn't taking any supplements or anything with Vit D in it. Edilia Paige, RN Please call patient and let her [...] to past numbers. documented in this encounter [facility] 04-24-2023 Note HNO ID: [id number] Author: Marisa Ramos LPN Service: ? Author [...] assessed by LIP pre and post procedure [facility] 04-24-2023 Note HNO ID: [id number] Author: Diamond King RT(R) Service: ? Author Type: Extrusion Die Corrector Type: Progress Notes Filed: 04/24/2023 3:55 PM [...] RT Diandra(R) April 24, 2023 3:46 PM [facility] 04-24-2023 Note HNO ID: [id number] Author: Nora Crespo APRN.DOPE WEIGH OPERATOR Service: ? Author Type: Nurse Practitioner Type: [...] Catecholamines - 07 (more content not included)... [facility] 04-24-2023 Miscellaneous Notes In review of patient chart, she was seen in office 04/15/23 with Andrew Crespo. Closing encounter as nothing further at this time. JERRI Tay See below. Appears she was admitted from [facility] perhaps, did address in my office note in Jan 13 2023. Check to see if addressed at [facility]. My addendum to note 01/15/2023: ADD: January 15, 2023 Message from daughter indicating interest in SNF. Will place consult for SW. If admitted /ER visit again would endorse seeing SW at [facility], referral to SNF from hospital. Lyndsey Chappell APRN.PROMOTIONAL REPRESENTATIVE She returned to ER [facility] 01/14/2023 and 01/16/2023. I did reach out to our social services coordinator. Her note 01/15/2023 excerpted: Tiffani spoke with patient daughter Marleny in regards to patient needing either SNF or Assisted Living. Marleny notes that patient has been in and out of hospital lately. Patient had cameron declining SNF/AL and Marleny notes that she is now open to going to a facility. Tiffani discussed with daughter if patient has day care home provider through [facility] [employer]. Marleny notes that she is not sure if patient has a day care home provider through [employer]. Sw encouraged Marleny to check to see as a day care home provider through [facility] could help with assisting patient with admit to AL. They could also help with level of care assessment to see if patient would qualify for SNF or AL. Sw provided Marleny with [facility] [place] [facility] number to reach out and explore care services. Sw noted different SNF/Al such as [facility], [facility], [facility]. Discussed [facility] Older Adult Guide on their website. Marleny notes that she does not know about the different SNF/AL in the community. Tiffani noted that the Older Adult Resource Guide has listing in the back of the different facilities. Marleny notes that will be helpful in regards to looking at different facility options for patient. Marleny states that she will start with [facility] and see what help they can provide her with facilities and then also look at and reach out to facilities admission office to see about cost and openings. Marleny notes that she will let this Sw know about further assistance needs. Tiffani will follow up with patient daughter beginning of next week to see what she has been able to find out for patient. We have not seen her since January. She does have an appointment in April with Nora. Charlene from [facility] states pt has been in a retirement facility since 01/18/23 however [facility] does mot have an authorization on file. Pt was not authorized prior to going in to facility. Charlene is requesting provider to add to med record notes why pt needs skilled nsg services & how long pt it expected to be in facility. Maureen Hassan LPN documented in this encounter [facility] 04-17-2023 Miscellaneous Notes OK Echo Mascorro is calling Nora Crespo APRN.CNP today with concern regarding the ear drops that were sent to [facility] have not been filled and patient stating that it should be resent please to the [facility] the pharmacy is [facility] Call pharmacy [phone] Note: I have loaded that pharmacy in patient chart Patient also stating that she was to start the eardrops Thursday and today she still does not have that RX. Patient has been identified by name and birthdate. Duration of symptoms: days Person calling: self Call patient at: on cell [phone] (home) [phone] (cell) Was an appointment scheduled: No Closing statement: Results or non-symptom based questions: Thank you for calling [facility], your call will be returned within the next business day. Amber Le documented in this encounter [facility] 04-16-2023 Miscellaneous Notes Margaret-nurse at [facility] calling to request patient's recent OV note with Nora Crespo CNP from 04/15/23 be faxed to her. Patient currently resides there. Faxed as requested to [phone]. Elsy Sanz RN documented in this encounter [facility] 04-15-2023 Note HNO ID: [id number] Author: Nora Crespo APRN.CNP Service: ? Author Type: Nurse Practitioner Type: [...] it checked. She is planning to see GI, Dr. Friend, due to her epigastric pain. Appointment coming up. Still having a lot of neuropathy pain, bad pain in her feet and lower legs. Taking her gabapentin and is on Cymbalta. Concerns about her kidneys. Would like to see a supervisor tan room. Currently in a nursing facility? Her medications [...] Comment: low back, sees pain MGT: Dr. Nael Johnson - 12/30/2005 (M priority) Diabetes Mellitus (Hcc) [...] 08/21/2016 Visual Disturbances (more content not included)... [facility] 01-19-2023 Note HNO ID: [id number] Author: GEORGETTE Khanna Service: ? Author Type: Hatch Boss Type: Progress Notes Filed: 01/19/2023 12:14 PM Note Text: Tiffani spoke with patient daughter Marleny and she reports that patient was admitted to [facility] this past Thursday. [facility] 01-19-2023 History of Present illness Narrative Tiffani spoke with patient daughter Marleny and she reports that patient was [facility] this past Thursday. Tiffani called patient to discuss referral request referral regarding SNF. No answer on home phone. Mobile phone rings and no vmail to leave message. documented in this encounter [facility] 01-16-2023 Miscellaneous Notes PATIENT's daughter NOTIFIED OF SAME. Noted. Prescription sent per request. Previously provided with Nicotrol nasal spray, confirm not also using that Pt's daughter Marleny calling with patient. Marleny states patient will be admitting to [facility] this afternoon, which does not allow smoking and pt is a smoker. Marleny calling to ask if Lyndsey LOCKWOOD would send script for nicotine patches for pt to [facility]? Please call Marleny with any updates. [phone]. Thank you. documented in this encounter [facility] 01-15-2023 Miscellaneous Notes Noted Tiffani spoke with patient daughter Marleny in regards to patient needing either SNF or Assisted Living. Marleny notes that patient has been in and out of hospital lately. Patient had cameron declining SNF/AL and Marleny notes that she is now open to going to a facility. Tiffani discussed with daughter if patient has day care home provider through [facility]. Marleny notes that she is not sure if patient has a day care home provider through [facility]. Tiffani encouraged Marleny to check to see as a day care home provider through [facility] could help with assisting patient with admit to AL. They could also help with level of care assessment to see if patient would qualify for SNF or AL. Tiffani provided Marleny with [facility] [place] [facility] number to reach out and explore care services. Tiffani noted different SNF/Al such as [facility], [facility], [facility]. Discussed [facility] on their website. Malreny notes that she does not know about [...] out for patient. documented in this encounter [facility] 01-15-2023 Note HNO ID: [id number] Author: GEORGETTE Khanna Service: ? Author Type: Hatch Boss Type: Progress Notes Filed: 01/19/2023 12:14 PM Note Text: Sw called patient to discuss referral request referral regarding SNF. No answer on home phone. Mobile phone rings and no vmail to leave message. [facility] 01-13-2023 Note HNO ID: [id number] Author: Lyndsey Chappell APRN.PROMOTIONAL REPRESENTATIVE Service: ? Author Type: Nurse Specialist Type: Progress Notes Filed: 01/15/2023 8:30 AM Note Text: Transitional Care Management Progress Note The patients TCM visit was performed within the 14 days of discharge. Patient's Date of discharge: 01/04/2023 Date of initial coordinator contact after discharge:01/05/2023 Discharge diagnosis: shortness of breath Medication review completed Yes Lyndsey Chappell APRN.PROMOTIONAL REPRESENTATIVE Provider Documentation: In follow-up of hospitalization, [...] not severe. No prior IM visits. [facility] Presents today for emergency department follow-up visit. She was seen at [facility] on August 23, 2022 for complaint [...] 4 hours as (more content not included)... [facility] 01-13-2023 Instructions Lyndsey Chappell APRN.CNS - 01/13/2023 3:05 PM EDT Please take your medications as ordered. These have been sent to [facility] for you today Be sure to increase your pantoprazole from once a day to twice a day. Add sucralfate before meals and at bedtime for now until gone. Please make an appointment with the following providers: 1-[facility], Alessio Cook in 1 week for hospital follow-up [phone] 2- Dr Martinez fitness supervisor 3-Dr Don Dias -oil heater operator 4- Vascular doctor documented in this encounter [facility] 01-13-2023 History of Present illness Narrative Transitional [...] not severe. No prior IM visits. Cardiology: [facility], Lawrence Durham DOPE WEIGH OPERATOR. Presents today for emergency department follow-up visit. She was seen at [facility] on August 23, 2022 for complaint [...] vomiting generalized weakness and anxiety. [facility] Today reports epigastric pain [...] States has had remote EGD, colonoscopy. EGD 2016 showed Nemesio Grade III reflux esophagitis Presents [...] Gastroenterology follow-up: Has not scheduled Follow-up with bottling line attendant. Has not scheduled Follow-up with oil heater operator. Has not scheduled PAST MEDICAL HISTORY: Reviewed [...] complication, without long-term current use of insulin ([facility]) - ICD9: 250.80, ICD10: E11.69 4. Cardiomyopathy in disease classified elsewhere ([facility]) - ICD9: 425.8, ICD10: I43 5. Supraventricular tachycardia ([facility]) - ICD9: 427.89, ICD10: I47.1 6. Acute exacerbation of chronic obstructive pulmonary disease (COPD) ([facility]) - ICD9: 491.21, ICD10: J44.1 7. LV (left ventricular) mural thrombus - ICD9: 410.90, ICD10: I51.3 8. Chest pain, unspecified type - ICD9: 786.50, ICD10: R07.9 9. NSTEMI (non-ST elevated myocardial infarction) ([facility]) - ICD9: 410.70, ICD10: I21.4 10. HFrEF (heart failure with reduced ejection fraction) ([facility]) - ICD9: 428.20, ICD10: I50.20 11. Gastroesophageal [...] She needs to be followed up with [facility] and have follow up echocardiogram regarding her thrombus. Continues with epigastric pain, will continue with PPI twice daily as prescribed at discharge and add Carafate for now. Needs to schedule appointment with Dr. Martinez. COPD exacerbation, recommend follow-up with oil heater operator. 3 mo.fu Lyndsey Chappell APRN.CNS or Nora Crespo CNP. 6 mo follow up Gabriel Galvan MD. Lyndsey Chappell APRN.CNS January 13, 2023 8:01 AM documented in this encounter [facility] 01-05-2023 Note Patient Outreach (IN TMWS) ECHO MASCORRO ([id number]) 1955 F CHT Date Time Provider Department 01/05/23 GABRIEL GALVAN INTJuliannWS During your visit today, we recorded the following information about you: Danna Centeno CLINIQUE COUNTER MANAGER 01/05/2023 10:38 AM Signed TRANSITION CARE MANAGEMENT (TCM) INITIAL CONTACT Cotton Opener Outreach Provider Action/FYI: Spoke with pt. Pt [...] might be hidden SUMMARY: -Pt discharged from [facility] on 01/04/23. -Admitted for: Shortness of breath Do you have a hospital follow up appointment with your PCP? Appointment on 01-08-23 with Annamarie Lopez, THREAD SINGER. No. Assist patient with follow-up appointment within [...] home? Yes Medical records from recent hospitalization: [facility] records have been copied and will deliver to nurse Allergies As of Date: 01/05/2023 (No Known Allergies) Date Reviewed: 09/23/2022 Reviewed by: Nora Crespo APRN.DOPE WEIGH OPERATOR - Fully Assessed Reason for Visit: Transition [...] Epigastric pain [R10.13] more content not included)... [facility] 01-05-2023 Miscellaneous Notes Benzonatate sent Spoke with pt and she was released from the hospital yesterday 12-25-22. She is requesting something for cough. They did not give her anything was she was released. Her Hospital FU is not until 01-08-23 with Lyndsey Chappell. Please advise pt. Danna Centeno LPN documented in this encounter [facility] 01-05-2023 Note HNO ID: [id number] Author: Danna Centeno LPN Service: ? Author Type: ? Type: Progress Notes Filed: 01/05/2023 10:38 AM Note Text: TRANSITION CARE MANAGEMENT (TCM) INITIAL CONTACT Cotton Opener Outreach Provider Action/FYI: Spoke with pt. Pt [...] might be hidden SUMMARY: -Pt discharged from [facility] on 01/04/23. -Admitted for: Shortness of breath Do you have a hospital follow up appointment with your PCP? Appointment on 01-08-23 with Annamarie Lopez THREAD SINGER. No. Assist patient with follow-up appointment within [...] home? Yes Medical records from recent hospitalization: [facility] records have been copied and will deliver to nurse [facility] 01-05-2023 History of Present illness Narrative TRANSITION CARE MANAGEMENT (TCM) INITIAL CONTACT Cotton Opener Outreach Provider Action/FYI: Spoke with pt. Pt [...] might be hidden SUMMARY: -Pt discharged from [facility] on 01/04/23. -Admitted for: Shortness of breath [...] home? Yes Medical records from recent hospitalization: [facility] records have been copied and will deliver to nurse documented in this encounter [facility] 11-10-2022 Miscellaneous Notes Patient's son calls and [...] call and advise. documented in this encounter [facility] 11-06-2022 Miscellaneous Notes Patient has been identified [...] Hallie Gonzalez RN documented in this encounter [facility] 10-13-2022 Miscellaneous Notes Spoke with Marleny and Barby from [facility] Vascular had contacted her and Marleny will verify again with her about refilling the Xarelto. Verify patient was able to get connected with below caller so able to keep getting Xarelto Barby with Vascular at [facility] called and reports she was trying to [...] refilling her Xarelto. documented in this encounter [facility] 10-03-2022 Miscellaneous Notes Could not get a hold of Pt, and shalom not let me leave a voice mail. Pts daughter called and is notified of providers message and instructions. She voices understanding, states to keep the appointment for Thursday. She works in the [employer] and will have her mother come in [...] has an appointment on Thursday with Nora Crespo THREAD SINGER, but is asking if provider would give [...] a ride places. She reports she uses [facility] as her pharmacy. Please call and advise. documented in this encounter [facility] 10-01-2022 Miscellaneous Notes Sanju notified & r/s [...] Hannah Modi LPN documented in this encounter [facility] 09-30-2022 Note HNO ID: [id number] Author: Pascale Bello RDMS Service: ? Author Type: Ornamental Iron Erector Type: Progress Notes Filed: 09/30/2022 2:04 PM [...] RDMS RVT September 30, 2022 2:04 PM [facility] 09-30-2022 History of Present illness Narrative Radiology [...] 2022 2:04 PM documented in this encounter [facility] 09-30-2022 Miscellaneous Notes Plan to go over result at up coming follow up appointment 10/06, will likely refer to speciality if patient agreeable. documented in this encounter [facility] 09-24-2022 Miscellaneous Notes Pt called and is [...] scheduled appointment. Thanks. documented in this encounter [facility] 09-23-2022 Instructions Nora Crespo APRN.CNP - 09/23/2022 2:44 PM EST documented in this encounter [facility] 09-23-2022 History of Present illness Narrative SUBJECTIVE [...] been seen in ER for this at [facility] prior to appointment here. Issues with abdominal [...] burning, noticing a coating on her tongue. [facility]. Her [...] anoro, avoid ICS given her thrush - FLTFJ-1-PTSCVGUEV BL - UMECLIDINIUM 62.5 MCG-VILANTEROL 25 MCG/ACTUATION [...] likely need to check in with her bottling line attendant. - US CAROTID ARTERIES RADHA [facility] [...] 2 weeks (around 10/07/2022) for recheck. Nora Crespo APRN-DONNA documented in this encounter [facility] 09-10-2022 Miscellaneous Notes Patient has been identified [...] Hallie Gonzalez RN documented in this encounter [facility] 08-27-2022 Miscellaneous Notes Patient notified, verbalized understanding. Patient asking to be seen tomorrow - Transferred to materials scheduler for appointment. I have no open 40 min slots today to reschedule with me today. If she is acutely ill then she can go to [facility] or back to the ER Annamarie Lopez APRN.DONNA Pt was scheduled with THREAD SINGER at 8am this morning. Pt called & stated the taxi did not show up to bring her for appt. Pt asking to reschedule today. Man in the background yelling obscenities & saying pt needs seen today as she is sick. Maureen Hassan LPN documented in this encounter [facility] 01-21-2022 Miscellaneous Notes Noted. Tiff, a bottle caser with [facility] calling to ask if Dr. Martinez was patient's provider. She states she wanted to inform him that patient had a recent hospital stay at [facility]. Informed Tiff that per May 2020 notes, [...] requested. Thank you. documented in this encounter [facility] 01-14-2022 Instructions Pascale Mata APRN.[facility] - 01/14/2022 4:21 PM EDT Understanding COPD [...] to and follow your treatment plan. Copyright [id number] The [facility]. All rights reserved documented in this encounter [facility] 01-14-2022 History of Present illness Narrative This note was created using Gamifyriter. Subjective Echo Mascorro is a 66 year [...] history is provided by the patient. No chucking machine set up operator tool was used. Cough This is a new [...] Dr. Nayak COPD (chronic obstructive pulmonary disease) ([facility]) Depression Essential hypertension, benign Sees Dr. Best GERD (gastroesophageal reflux disease) Incontinence 07/07/2014 Opioid dependence (HCC) 01/15/2020 In 180 as of 01/2020 per ER report from [facility]. PAST SURGICAL HISTORY Procedure Laterality Date 2D ECHO (EXEP) 01/19/2017 EF=55%, mild LVH, LA enlargement, [place] and TI, Diastolic dysfunction. 2D ECHO (EXEP) [...] ICD10: R05.9 X 1 week Pascale Mata APRN.DOPE WEIGH OPERATOR documented in this encounter [facility] 11-19-2021 Hospital Discharge instructions Piero Begum PA - [...] Discharge Medications: Alessio Mascorro Home Medication Instructions ROMI:[id number] Printed on:06/18/21 3388 Medication Information escitalopram (LEXAPRO) 10 MG tablet Take 1 tablet by mouth daily lisinopril (PRINIVIL;ZESTRIL) 20 MG tablet Take 20 mg by mouth 2 times daily (with meals) LORazepam (ATIVAN) 1 MG tablet Take 1 mg by mouth 2 times daily. metoprolol succinate (TOPROL XL) 50 MG extended release tablet Take 1 tablet by mouth daily Recommended Follow-up: Brown Meyer MD [address] [place] [address] [address] [facility] [id number] In 1 week post hospital fu appt Feliz Sidhu MD [address] [place] [address], [address] [facility] [id number] In 1 week post hospital fu appt Readmission Risk Risk of Unplanned Readmission: 11 Complexity of Follow up: [] Moderate Complexity: follow up within 7-14 calendar days (82587) [x] Severe Complexity: follow up within 7 calendar days (85405) Follow up Testing, Pending results or Referrals [...] frame. Signed: Jose Guardado DO [facility] 06/18/2021, 2:09 PM [facility] 06-18-2021 Hospital Discharge instructions Jose Guardado DO [...] at most local grocery stores, pharmacies, and [employer]-stores. If you have any questions about your [...] Extended Emergency Contact Information Primary Emergency Contact: Sanju Douglas Mobile Relation: Child Preferred language: Welsh Taffy Puller needed? No Secondary Emergency Contact: Liya Dawna Relation: Child Preferred language: Welsh Past Surgical History: Past Surgical History: Procedure Laterality Date HYSTERECTOMY Immunization History: There is no immunization history on file for this patient. Active Problems: Patient Active Problem List Diagnosis Code COVID-19 U07.1 Hypertension I10 Depression F32.A Type 2 diabetes mellitus (HCC) E11.9 PSVT (paroxysmal supraventricular tachycardia) (HCC) I47.1 Anxiety disorder F41.9 Isolation/Infection: Isolation Contact [...] MENTAL STATUS::::0} IV Access: { MUKUND IV ACCESS:119580138:::0} Nursing Mobility/ADLs: Walking {CHP DME ADLs:407875289:::0} Transfer {CHP DME ADLs:292108198:::0} Bathing {CHP DME ADLs:555215207:::0} Dressing {CHP DME ADLs:640870282:::0} Toileting {CHP DME ADLs:760677607:::0} Feeding {CHP DME ADLs:935861395:::0} Automatic Equipment Technician {CHP DME ADLs:820707580:::0} Med Delivery { MUKUND MED Delivery:335468674:::0} Wound Care Documentation and Therapy: Elimination: Continence: Bowel: {YES / NO:} Bladder: {YES / NO:} Urinary Catheter: {Urinary Catheter:664759652:::0} Colostomy/Ileostomy/Ileal Conduit: {YES / NO:} Date of Last BM: No intake or output data in the 24 hours ending 06/18/21 1409 No intake/output data recorded. Safety Concerns: { MUKUND Safety Concerns:889068666:::0} Impairments/Disabilities: { MUKUND Impairments/Disabilities:70930113 3:::0} Nutrition Therapy: Current Nutrition Therapy: { MUKUND Diet List:057099713:::0} Routes of Feeding: {[facility] DME Other Feedings:599935793:::0} Liquids: {[facility] liquid thickness:38528} Daily Fluid Restriction: {CHP DME Yes amt example:001165155:::0} Last Modified Barium Swallow with Video (Video Swallowing Test): {Done Not Done Date::::0} Treatments at the Time of Hospital Discharge: Respiratory Treatments: Oxygen Therapy: {Therapy; copd oxygen:39640:::0} Ventilator: {[facility] Vent List:618103130:::0} Rehab Therapies: {THERAPEUTIC INTERVENTION:2349549249} Weight Bearing Status/Restrictions: { CC Weight Bearin:::0} Other Medical Equipment (for information only, NOT a DME order): {EQUIPMENT:515846152} Other Treatments: Patient's personal belongings (please select all that are sent with patient): {[facility] DME Belongings:360140122:::0} RN SIGNATURE: {Esignature:307379836:::0} CASE MANAGEMENT/SOCIAL WORK SECTION Inpatient Status Date: Readmission Risk Assessment Score: Readmission Risk Risk of Unplanned Readmission: 11 Discharging to Facility/ Agency Name: Address: Phone: Fax: Dialysis Facility (if applicable) Name: Address: Dialysis Schedule: Phone: Fax: Psychologist Social/Hatch Boss signature: {Esignature:195058331:::0} PHYSICIAN SECTION Prognosis: {Prognosis:3708726564:::0} Condition at Discharge: { Patient Condition:469268401:::0} Rehab Potential (if transferring to Rehab): {Prognosis:1290133331:::0} Recommended Labs or Other Treatments After Discharge: Physician Certification: I certify the above information and transfer of Alessio Mascorro is necessary for the continuing treatment of the diagnosis listed and that she requires {Admit to Appropriate Level of Care:63171:::0} for {GREATER/LESS:443535157} 30 days. Update Admission H&P: {CHP DME Changes in HandP:822017306:::0} PHYSICIAN SIGNATURE: {Esignature:083720744:::0} documented in this encounter [facility] Work Phone: 06-18-2021 History of Present illness Narrative Progress Note Date:06/18/2021 Room:[address] [place] [address] Patient Name:Alessio Mascorro Date of :1955 Age:65 [...] data in the 24 hours ending 06/18/21 0931 Scheduled Meds: escitalopram 10 mg Oral Daily [...] %. Labs/Imaging/Diagnostics Labs: CBC: Recent Labs 06/15/21201206/17/21 040 WBC 7.0 6.5 RBC 4.47 4.09 HGB 13.9 12.7 HCT 41.8 38.4 MCV 93.4 94.0 RDW 13.8 13.6 PLT 257 302 CHEMISTRIES: Recent Labs 06/15/21201206/17/21 040 NA 141 135 K 4.0 4.1 CL 106 107 CO2 29 26 BUN 19 20 CREATININE 0.67 0.64 GLUCOSE 135* 155* PT/INR: Recent Labs 06/15/21201206/17/21 112 PROTIME 10.7 11.1 INR 1.0 1.0 APTT: Recent Labs 06/17/211126 APTT 29.3 LIVER PROFILE: Recent Labs 06/15/21201206/17/21 040 AST 86* 39 ALT 32 27 BILITOT [...] to preserve PPE for other caregivers, a nyjh-ch-fjvu encounter with the patient was not performed. That being said, all relevant records, notes and diagnostic tests were reviewed, including laboratory results and imaging. Please reference any relevant documentation elsewhere. Care will be coordinated with the primary service. SIGNATURE: Feliz Sidhu MD; FACC; FHRS; FASNC; CCDS. PATIENT NAME: Alessio Mascorro DATE: 06/18/2021 PAGER: [phone] Images from the original note were not included. Hospitalist Progress Note 06/17/2021 5:19 PM [phone]: Please page me ([phone]) for patient care issues. [phone]: Please page IMS night Hospitalist for any issues. Subjective: Admit Date: 06/15/2021 PCP: No primary care provider on file. Room#: [address] [place] [address] Interval History: Patient is lying on the bed comfortably, denies any chest pain shortness of breath or palpitations. No other significant overnight issues ADULT DIET; Regular Patient Vitals for the past 96 hrs (Last 3 readings): Weight 06/15/212006 160 lb (72.6 kg) 24HR INTAKE/OUTPUT: No intake or output data in the 24 hours ending 06/17/211718 Past Medical History: Diagnosis Date Anxiety Blood [...] mg Oral Daily LABS: CBC: Recent Labs 06/15/21201206/17/21 0407 WBC 7.0 6.5 RBC 4.47 4.09 HGB 13.9 12.7 HCT 41.8 38.4 MCV 93.4 94.0 RDW 13.8 13.6 PLT 257 302 BMP: Recent Labs 06/15/21201206/17/21 0407 NA 141 135 K 4.0 4.1 CL 106 107 CO2 29 26 BUN 19 20 CREATININE 0.67 0.64 GLUCOSE 135* 155* CALCIUM 9.0 9.0 ANIONGAP 6 2* LIVER PROFILE: Recent Labs 06/15/21201206/17/21 0407 AST 86* 39 ALT 32 27 BILITOT 0.2 0.4 ALKPHOS 168* 136* LABALBU 3.6 3.0* PROT 6.9 6.2* PT/INR: Recent Labs 06/15/21201206/17/21 1127 PROTIME 10.7 11.1 INR 1.0 1.0 CARDIAC [...] of Hospitalist Medicine Inpatient Medical Services PAGER: [phone] Patient was upset crying saying that everyone [...] regarding this hospital admission. Progress Note Date:06/17/2021 Room:[address] [place] [address] Patient Name:Alessio Mascorro Date of :1955 Age:65 [...] to preserve PPE for other caregivers, a ieit-lq-rige encounter with the patient was not performed. That being said, all relevant records, notes and diagnostic tests were reviewed, including laboratory results and imaging. Please reference any relevant documentation elsewhere. Care will be coordinated with the primary service. Labs/Imaging/Diagnostics Labs: CBC:Recent Labs 06/14/21 1106 06/15/21201206/17/21406 WBC 6.7 7.0 6.5 RBC 4.02 4.47 [...] last 72 hours. LIVER PROFILE: Recent Labs 10/09/21 2013 10/11/21 0407 AST 86* 39 ALT 32 27 BILITOT 0.2 0.4 ALKPHOS 168* 136* Imaging Last 24 Hours: CTA CHEST W WO CONTRAST Result Date: 06/15/2021 [id number] Computed Tomography ACCESSION EXAM DATE/TIME PROCEDURE ORDERING PROVIDER [id number] 06/15/2021 21:15 EDT CTA Chest w/ + w/o [id number] SNYDER PAIGE CPT code 82908 Q9967 Reason For Exam (CTA Chest w/ [...] SHELL --- Final --- Dictating Physician: MD MICHAEL, LAWRENCE Roberts Signed Date and Time: 06/15/2021 9:23 pm Signed by: MD RODRIGUEZ JOHN R Transcribed Date and Time: 06/15/2021 9:24 XR CHEST PORTABLE Result Date: 06/15/2021 Patient Name: ALESSIO MASCORRO Diagnostic Radiology ACCESSION EXAM DATE/TIME PROCEDURE ORDERING PROVIDER [id number] 06/15/2021 20:35 EDT CR Chest Portable [id number] SNYDER CPT code 26623 Reason For Exam (CR Chest Portable) Dyspnea Report SINGLE FRONTAL VIEW OF THE CHEST CLINICAL INDICATION: Dyspnea TECHNIQUE: Single frontal view of the chest COMPARISON: 06/14/2021 FINDINGS: Mild cardiac enlargement. Vascular congestion with interstitial edema, worse than on the prior study. IMPRESSION: 1. Worsening pulmonary vascular congestion and interstitial edema. Report Dictated on Workstation: [id number] --- Final --- Dictating Physician: MD RODRIGUEZ [...] PATIENT NAME: Alessio Mascorro DATE: 06/17/2021 PAGER: [phone] Nutrition rescreen completed. Patient assigned a level 1. Pt refusing to wear front desk monitor and have EKG done. Benefits verses risk explained to patient. This nurse notified Dr. Sidhu regarding elevated troponin level and patient refusing to have EKG and wear front desk monitor. Patient heart rate is controlled, continuing Lopressor. Cardiology came and evaluated the patient. Continue monitor. H&P as per night physician Pt's son, Sanju, updated on pt condition. documented in this encounter [facility] Work Phone: 06-15-2021 Note Hospitalist Discharg e Summary [...] Medicine Inpatient Medical Services 06/28/2021, 4:05 PM [facility] 06-14-2021 History of Present illness Narrative Son called with complaints about the emergency room. He stated he knew doctors and tobacco sweeper and he has rights to take the [...] of this encounter (statuses as of 09/23/2022) [facility] History of Past illness Narrative* Problem Noted Date Resolved Date Opioid dependence 01/15/2020 09/23/2022 Overview: In 180 as of 01/2020 per ER report from [facility]. Encounter for screening mammogram for breast can [...] of this encounter (statuses as of 09/24/2022) [facility] History of Past illness Narrative* Problem Noted Date Resolved Date Opioid dependence 01/15/2020 09/23/2022 Overview: In 180 as of 01/2020 per ER report from [facility]. Encounter for screening mammogram for breast can [...] of this encounter (statuses as of 10/01/2022) [facility] History of Past illness Narrative* Problem Noted Date Resolved Date Opioid dependence 01/15/2020 09/23/2022 Overview: In 180 as of 01/2020 per ER report from [facility]. Encounter for screening mammogram for breast can [...] of this encounter (statuses as of 10/03/2022) [facility] History of Past illness Narrative* Problem Noted Date Resolved Date Opioid dependence 01/15/2020 09/23/2022 Overview: In 180 as of 01/2020 per ER report from [facility]. Encounter for screening mammogram for breast can [...] of this encounter (statuses as of 10/13/2022) [facility] History of Past illness Narrative* Problem Noted Date Resolved Date Opioid dependence 01/15/2020 09/23/2022 Overview: In 180 as of 01/2020 per ER report from [facility]. Encounter for screening mammogram for breast can [...] of this encounter (statuses as of 11/07/2022) [facility] History of Past illness Narrative* Problem Noted Date Resolved Date Opioid dependence 01/15/2020 09/23/2022 Overview: In 180 as of 01/2020 per ER report from [facility]. Encounter for screening mammogram for breast can [...] of this encounter (statuses as of 11/10/2022) [facility] History of Past illness Narrative* Problem Noted Date Resolved Date Opioid dependence 01/15/2020 09/23/2022 Overview: In 180 as of 01/2020 per ER report from [facility]. Encounter for screening mammogram for breast can [...] of this encounter (statuses as of 01/05/2023) [facility] History of Past illness Narrative* Problem Noted Date Resolved Date Opioid dependence 01/15/2020 09/23/2022 Overview: In 180 as of 01/2020 per ER report from [facility]. Encounter for screening mammogram for breast can [...] of this encounter (statuses as of 01/05/2023) [facility] History of Past illness Narrative* Problem Noted Date Resolved Date Opioid dependence 01/15/2020 09/23/2022 Overview: In 180 as of 01/2020 per ER report from [facility]. Encounter for screening mammogram for breast can [...] of this encounter (statuses as of 01/14/2023) [facility] History of Past illness Narrative* Problem Noted Date Resolved Date Opioid dependence 01/15/2020 09/23/2022 Overview: In 180 as of 01/2020 per ER report from [facility]. Encounter for screening mammogram for breast can [...] of this encounter (statuses as of 01/16/2023) [facility] History of Past illness Narrative* Problem Noted Date Resolved Date Opioid dependence 01/15/2020 09/23/2022 Overview: In 180 as of 01/2020 per ER report from [facility]. Encounter for screening mammogram for breast can [...] of this encounter (statuses as of 01/17/2023) [facility] History of Past illness Narrative* Problem Noted Date Resolved Date Opioid dependence 01/15/2020 09/23/2022 Overview: In 180 as of 01/2020 per ER report from [facility]. Encounter for screening mammogram for breast can [...] of this encounter (statuses as of 01/19/2023) [facility] History of Past illness Narrative* Problem Noted Date Diagnosed Date Resolved Date Opioid dependence 01/15/2020 09/23/2022 Overview: In 180 as of 01/2020 per ER report from [facility]. Encounter for screening mamm ogram for breast [...] of this encounter (statuses as of 04/16/2023) [facility] History of Past illness Narrative* Problem Noted Date Diagnosed Date Resolved Date Opioid dependence 01/15/2020 09/23/2022 Overview: In 180 as of 01/2020 per ER report from [facility]. Encounter for screening mamm ogram for breast [...] of this encounter (statuses as of 04/18/2023) [facility] History of Past illness Narrative* Problem Noted Date Diagnosed Date Resolved Date Opioid dependence 01/15/2020 09/23/2022 Overview: In 180 as of 01/2020 per ER report from [facility]. Encounter for screening mamm ogram for breast [...] of this encounter (statuses as of 04/24/2023) [facility] History of Past illness Narrative* Problem Noted Date Diagnosed Date Resolved Date Opioid dependence 01/15/2020 09/23/2022 Overview: In 180 as of 01/2020 per ER report from [facility]. Encounter for screening mamm ogram for breast [...] of this encounter (statuses as of 04/30/2023) [facility] History of Past illness Narrative* Problem Noted Date Diagnosed Date Resolved Date Opioid dependence 01/15/2020 09/23/2022 Overview: In 180 as of 01/2020 per ER report from [facility]. Encounter for screening mamm ogram for breast [...] of this encounter (statuses as of 05/01/2023) [facility] History of Past illness Narrative* Problem Noted Date Diagnosed Date Resolved Date Opioid dependence 01/15/2020 09/23/2022 Overview: In 180 as of 01/2020 per ER report from [facility]. Encounter for screening mamm ogram for breast [...] of this encounter (statuses as of 05/05/2023) [facility] History of Past illness Narrative* Problem Noted Date Diagnosed Date Resolved Date Opioid dependence 01/15/2020 09/23/2022 Overview: In 180 as of 01/2020 per ER report from [facility]. Encounter for screening mamm ogram for breast [...] of this encounter (statuses as of 07/12/2023) [facility] History of Past illness Narrative* Problem Noted Date Diagnosed Date Resolved Date Opioid dependence 01/15/2020 09/23/2022 Overview: In 180 as of 01/2020 per ER report from [facility]. Encounter for screening mamm ogram for breast [...] of this encounter (statuses as of 08/17/2023) [facility] History of Past illness Narrative* Problem Noted Date Resolved Date Epigastric pain 04/16/2016 04/16/2016 Colon cancer screening 04/16/2016 6 documented as of this encounter (statuses as of 01/14/2022) [facility] History of Past illness Narrative* Problem Noted Date Resolved Date Epigastric pain 04/16/2016 04/16/2016 Colon cancer screening 04/16/2016 6 documented as of this encounter (statuses as of 01/21/2022) [facility] History of Past illness Narrative* Problem Noted Date Resolved Date Epigastric pain 04/16/2016 04/16/2016 Colon cancer screening 04/16/2016 6 documented as of this encounter (statuses as of 08/27/2022) [facility] History of Past illness Narrative* Problem Noted Date Resolved Date Epigastric pain 04/16/2016 04/16/2016 Colon cancer screening 04/16/2016 6 documented as of this encounter (statuses as of 09/12/2022) [facility] [place] [facility] Diagnosis COVID-19 documented in this encounter [...] with exacerbation Cough documented in this encounter [facility]* Diagnosis Epigastric pain- Primary Abdominal pain, [...] therapeutic drug monitoring documented in this encounter [facility] note* Diagnosis Epigastric pain Abdominal pain, epigastric Lower abdominal pain Abdominal pain, other specified site [facility] [place] Diagnosis Shortness of breath- Primary Epigastric pain Abdominal pain, epigastric Type 2 diabetes mellitus with other specified complication, without long-term current use of insulin (HCC) Cardiomyopathy in disease classified elsewhere ([facility]) Supraventricular tachycardia (HCC) Other specified cardiac dysrhythmias Acute exacerbation of chronic obstructive pulmonary disease (COPD) ([facility]) Obstructive chronic bronchitis with exacerbation LV (left ventricular) mural thrombus Acute myocardial infarction, unspecified site, episode of care unspecified Chest pain, unspecified type NSTEMI (non-ST elevated myocardial infarction) ([facility]) Acute myocardial infarction, subendocardial infarction, episode of care unspecified HFrEF (heart failure with reduced ejection fraction) ([facility]) Heart failure, unspecified Gastroesophageal reflux disease, unspecified whether esophagitis present documented in this encounter [facility] note* Diagnosis Encounter for screening for lung cancer- Primary Chronic cough Cough Chronic bronchitis, unspecified chronic bronchitis type ([facility]) Smoker Tobacco use disorder documented in this encounter [facility] note* Diagnosis Radiculopathy, lumbosacral region- Primary Thoracic or lumbosacral neuritis or radiculitis, unspecified Neuropathy Mononeuritis of unspecified site Pain in right leg Paresthesia of skin Disturbance of skin sensation [facility] this encounter [facility]* Diagnosis Lower abdominal pain Abdominal pain, other specified site Abdominal aneurysm (HCC) Abdominal aneurysm without mention of rupture Dizziness Dizziness and giddiness documented in this encounter [facility] [place] [facility]* Diagnosis Encounter for screening mammogram for breast cancer documented in this encounter [facility] for referral (narrative)* Diagnostic Procedure Only (Routine) - Authorized Specialty Diagnoses / Procedures Referred By Karma rothman Referred To Contact US IMAGING Diagnoses Lower abdominal pain Abdominal aneurysm Dizziness Procedures US ABD AORTA US RETROPERITONEAL REAL TIME W/IMAGE LIMITED Nora Crespo APRN.DOPE WEIGH OPERATOR [address] [place] [address] Us Imaging Referral ID Status Reason Start Date Expiration Date Visits Requested Visits Authorized [id number] Authorized Auto-Generat ed Referral 09/23/2022 10/23/2023 1 1 * Outpatient Procedure (Routine) - Authorized Specialty Diagnoses / Procedures Referred By Karma t Referred To [facility] Diagnoses Abdominal aneurysm Bruit of left carotid artery Dizziness Procedures US CAROTID ARTERIES RADHA VAS LAB DUPLEX SCAN EXTRACRANIAL ART COMPL BI STUDY Nora Crespo APRN.CNP [address] [place] [address] [facility] [place] [address] [place] [address] Referral ID Status Reason Start Date Expiration Date Visits Requested Visits Authorized [id number] Authorized Auto-Generat ed Referral 09/23/2022 09/23/[address] [facility] for referral (narrative)* Diagnostic Procedure Only (Routine) - Closed Specialty Diagnoses / Procedures Referred By Karma rothman Referred To Contact US IMAGING Diagnoses Lower abdominal pain Abdominal aneurysm (HCC) Dizziness Procedures US ABD AORTA US RETROPERITONEAL REAL TIME W/IMAGE LIMITED Nora Crespo APRN.DOPE WEIGH OPERATOR [address] [place] [phone] [facility] [place] [address] Referral ID Status Reason Start Date Expiration Date V isits Requested Visits Authorized [id number] Closed Auto-Generate d Referral 09/23/2022 10/23/[address] [facility] for referral (narrative)* Diagnostic Procedure Only (Routine) - Pending Review Specialty Diagnoses / Procedures Referred By Karma t Referred To Contact [facility] Diagnoses Encounter for screening mammogram for breast cancer Procedures YANG SCREENING SCREENING MAMMOGRAPHY BI 2-VIEW BREAST INC Gabriel Jurado MD [address] [place] [id number] [facility] [address] [place] [address] Referral ID Status Reason Start Date Expiration Date Visits Requested Visits Authorized [id number] Pending Review Auto-Generat ed Referral 08/12/2023 09/10/2024 1 1 [facility] Summary Purpose Family History No Family [...] Communication Sanju Douglas Child Primary Decision Maker [phone] (Mobile) Latest Code Status on File Code Status Date Activated Date Inactivated Comments Full Code 06/16/2021 3:05 AM Full Code 06/14/2021 3:52 PM 06/15/2021 4:09 AM Healthcare Agents on File Name Relationship Healthcare Agent Relationshi p Communication Sanju Douglas Child Primary Decision Maker [phone] (Mobile) Latest Code Status on File Code Status Date Activated Date Inactivated Comments Full Code 06/16/2021 3:05 AM 06/18/2021 5:10 PM Healthcare Agents on File Name Relationship Healthcare Agent Giselahi p Communication Sanju Douglas Child Primary Decision Maker [phone] (Mobile) Documents on File Type Date Recorded 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 Advance Directive(s) 09/13/2019 12:48 PM Advance Directive(s) 08/23/2019 8:47 PM Advance Directive(s) 04/16/2016 12:37 PM Advance Directive(s) 04/04/2016 12:48 PM Reason for Referral Specialty Diagnoses / Procedures Referred By Contac t Referred To Contact Lyndsey Chappell APRN.PROMOTIONAL REPRESENTATIVE [address] [place] [address] Referral ID Status Reason Start Date Expiration Date Visits Re quested Visits Authorized [id number] Closed 1 1 Specialty Diagnoses / Procedures Referred By Contac t Referred To Contact CT IMAGING Diagnoses Encounter for screening for lung cancer Chronic cough Chronic bronchitis, unspecified chronic bronchitis type (HCC) Smoker Procedures CT CHEST WO IVCON DIAGNOSTIC COMPUTED TOMOGRAPHY THORAX W/O CNTRST Nora Crespo APRN.DOPE WEIGH OPERATOR [address] [place] [address] Ct Imaging [place] [address] Referral ID Status Reason Start Date Expiration Date Visits Requested Visits Authorized [id number] Authorized Auto-Generat ed Referral 05/13/2023 06/12/2023 1 1 Additional Source Comments INFORMATION SOURCE (unrecogn ized section and content) DATE CREATED AUTHOR AUTHOR'S ORGANIZ ATION 09/15/2019 [facility] DATE CREATED AUTHOR AUTHOR'S ORGANIZ ATION 11/23/2019 [facility] [place] DATE CREATED AUTHOR AUTHOR'S ORGANIZ ATION 07/29/2021 [facility] [place] [facility] DATE CREATED AUTHOR AUTHOR'S ORGANIZ ATION 09/26/2023 [facility] Reason for Visit (unrecogniz ed section and [...] Referred By Karma t Referred To Contact [facility] Diagnoses Neuropathy Procedures EMG(NEURO/NI) NERVE CONDUCTION STUDIES 9-10 STUDIES Nora Crespo APRN.DOPE WEIGH OPERATOR [address] [place] [address] [facility] [place] [address] [place] [address] Referral ID Status Reason Start Date Expiration Date V isits Requested Visits Authorized [id number] Closed Auto-Generate d Referral 04/15/2023 04/15/2024 1 1 Reason Comments Results EMG Reason Comments Radiology US Specialty Diagnoses / Procedures Referred By Apurvaac t Referred To Contact US IMAGING Diagnoses Lower abdominal pain Abdominal aneurysm (HCC) Dizziness Procedures US ABD AORTA US RETROPERITONEAL REAL TIME W/IMAGE LIMITED Nora Crespo APRN.DOPE WEIGH OPERATOR [address] [place] [address] [place] [address] Referral ID Status Reason Start Date Expiration Date V isits Requested Visits Authorized [id number] Closed Auto-Generate d Referral 09/23/2022 10/23/2023 1 [...] on 06/16/21 at 2000, For 10 doses 214 (Given - Provider: Tita Singer, WENDY) 2032 (Given - Provider: Tita Singer, WENDY) 1999 (Due) dilTIAZem (CARDIZEM) tablet 30 mg (CANCELED) 30 mg, Oral, EVERY 8 HOURS SCHEDULED (3 times per day), First dose on 06/16/21 at 0330 0450 (Given - Provider: Tita Singer, WENDY) enoxaparin (LOVENOX) injection 30 mg 30 mg, SubCUTAneous, 2 TIMES DAILY, First dose (after last modification) on 06/16/21 at 0900 0956 (Given - Provider: Layla Triana, WENDY)214 (Given - Provider: Tita Singer RN) 0853 (Given - Provider: Shy Ambriz RN)2032 (Given - Provider: Tita Singer, WENDY) 0951 (Given - Provider: Shy Ambriz, WENDY)2099 (Due) escitalopram (LEXAPRO) tablet 10 mg 10 mg, Oral, DAILY, First dose on Thu06/17/21 at 1200 1147 (Given - Provider: Shy Ambriz RN) 0951 (Given - Provider: Shy Ambriz, WENDY) lisinopril (PRINIVIL;ZESTRIL) tablet 20 mg 20 mg, Oral, 2 TIMES DAILY WITH MEALS, First dose on 06/16/21 at 1115 1230 (Given - Provider: Layla Triana, WENDY)1807 (Given - Provider: Layla Triana RN) 0853 [...] WENDY) 0853 (Given - Provider: Shy Ambriz RN)2032 (Given - Provider: Tita Singer, WENDY) 0951 [...] 2150 (Given - Provider: Tita Singer RN) 2032 (Given - Provider: Tita Singer RN) ondansetron (ZOFRAN) injection 4 mg 4 mg, IntraVENous, EVERY 6 HOURS PRN, Nausea, Vomiting, Starting on 06/16/21 at 1020 1101 (Given - Provider: Layla Triana, RN) 1659 (Given - Provider: Shy Ambriz, WENDY) perflutren lipid microspheres (DEFINITY) injection 1.65 mg 1.65 mg (1.5 mL), IntraVENous, IMG ONCE PRN, Other, Suboptimal Echo Image, Starting on 06/16/21 at 0303, For 72 hours, Administer up to 1.65 mg via slow IVP for suboptimal echocardiogram enhancement. May administer as concentrated dose or diluted in 8.5 mL of 0.9% sodium chloride for a total volume of 10 mL. May administer as divided doses to reach optimal image enhancement. polyethylene glycol (GLYCOLAX) packet 17 g 17 g, Oral, DAILY PRN, Constipation, Starting on Thu06/16/21 at 0302, First line therapy for constipation sodium chloride flush 0.9 % injection 5-40 mL 5-40 mL, IntraVENous, PRN, Line Care, After every IV line use, Starting on [place] 06/16/21 at 0302, For Line Patency: Peripheral [...] 5-40 mL, IntraVENous, PRN, Line Care, Per Ornamental Iron Erector Request, Starting on 06/16/21 at 0303, For 72 hours, May use order for Line Care after every IV line use and Agitated Saline Bubble Study. Administration for Bubble Study per strategic marketing manager request for only. Remove 1 mL 0.9% [...] or prosecute any alcohol or drug abuse patient.[facility] the event this information is protected by the Federal Confidentiality of Alcohol and Drug Abuse Patient Records regulations: The Federal rules restrict any use of the information to criminally investigate or prosecute any alcohol or drug abuse patient.[facility] the event this information is protected by the Federal Confidentiality of Alcohol and Drug Abuse Patient Records regulations: The Federal rules restrict any use of the information to criminally investigate or prosecute any alcohol or drug abuse patient.[facility] the event this information is protected by the Federal Confidentiality of Alcohol and Drug Abuse Patient Records regulations: The Federal rules restrict any use of the information to criminally investigate or prosecute any alcohol or drug abuse patient.[facility] the event this information is protected by the Federal Confidentiality of Alcohol and Drug Abuse Patient Records regulations: The Federal rules restrict any use of the information to criminally investigate or prosecute any alcohol or drug abuse patient.[facility] Center[facility] the event this information is protected by the Federal Confidentiality of Alcohol and Drug Abuse Patient Records regulations: The Federal rules restrict any use of the information to criminally investigate or prosecute any alcohol or drug abuse patient.[facility] Center[facility] the event this information is protected by the Federal Confidentiality of Alcohol and Drug Abuse Patient Records regulations: The Federal rules restrict any use of the information to criminally investigate or prosecute any alcohol or drug abuse patient.[facility] Center[facility] the event this information is protected by the Federal Confidentiality of Alcohol and Drug Abuse Patient Records regulations: The Federal rules restrict any use of the information to criminally investigate or prosecute any alcohol or drug abuse patient.[facility] CenterIn the event this information is protected by the Federal Confidentiality of Alcohol and Drug Abuse Patient Records regulations: The Federal rules restrict any use of the information to criminally investigate or prosecute any alcohol or drug abuse patient.[facility] CenterIn the event this information is protected by the Federal Confidentiality of Alcohol and Drug Abuse Patient Records regulations: The Federal rules restrict any use of the information to criminally investigate or prosecute any alcohol or drug abuse patient.[facility] CenterIn the event this information is protected by the Federal Confidentiality of Alcohol and Drug Abuse Patient Records regulations: The Federal rules restrict any use of the information to criminally investigate or prosecute any alcohol or drug abuse patient.[facility] CenterIn the event this information is protected by the Federal Confidentiality of Alcohol and Drug Abuse Patient Records regulations: The Federal rules restrict any use of the information to criminally investigate or prosecute any alcohol or drug abuse patient.[facility] CenterIn the event this information is protected by the Federal Confidentiality of Alcohol and Drug Abuse Patient Records regulations: The Federal rules restrict any use of the information to criminally investigate or prosecute any alcohol or drug abuse patient.[facility] CenterIn the event this information is protected by the Federal Confidentiality of Alcohol and Drug Abuse Patient Records regulations: The Federal rules restrict any use of the information to criminally investigate or prosecute any alcohol or drug abuse patient.[facility] CenterIn the event this information is protected by the Federal Confidentiality of Alcohol and Drug Abuse Patient Records regulations: The Federal rules restrict any use of the information to criminally investigate or prosecute any alcohol or drug abuse patient.[facility] CenterIn the event this information is protected by the Federal Confidentiality of Alcohol and Drug Abuse Patient Records regulations: The Federal rules restrict any use of the information to criminally investigate or prosecute any alcohol or drug abuse patient.[facility] CenterIn the event this information is protected by the Federal Confidentiality of Alcohol and Drug Abuse Patient Records regulations: The Federal rules restrict any use of the information to criminally investigate or prosecute any alcohol or drug abuse patient.[facility] CenterIn the event this information is protected by the Federal Confidentiality of Alcohol and Drug Abuse Patient Records regulations: The Federal rules restrict any use of the information to criminally investigate or prosecute any alcohol or drug abuse patient.[facility] CenterIn the event this information is protected by the Federal Confidentiality of Alcohol and Drug Abuse Patient Records regulations: The Federal rules restrict any use of the information to criminally investigate or prosecute any alcohol or drug abuse patient.[facility] CenterIn the event this information is protected by the Federal Confidentiality of Alcohol and Drug Abuse Patient Records regulations: The Federal rules restrict any use of the information to criminally investigate or prosecute any alcohol or drug abuse patient.[facility] CenterIn the event this information is protected by the Federal Confidentiality of Alcohol and Drug Abuse Patient Records regulations: The Federal rules restrict any use of the information to criminally investigate or prosecute any alcohol or drug abuse patient.[facility] CenterIn the event this information is protected by the Federal Confidentiality of Alcohol and Drug Abuse Patient Records regulations: The Federal rules restrict any use of the information to criminally investigate or prosecute any alcohol or drug abuse patient.[facility] CenterIn the event this information is protected by the Federal Confidentiality of Alcohol and Drug Abuse Patient Records regulations: The Federal rules restrict any use of the information to criminally investigate or prosecute any alcohol or drug abuse patient.[facility] CenterIn the event this information is protected by the Federal Confidentiality of Alcohol and Drug Abuse Patient Records regulations: The Federal rules restrict any use of the information to criminally investigate or prosecute any alcohol or drug abuse patient.[facility] CenterIn the event this information is protected by the Federal Confidentiality of Alcohol and Drug Abuse Patient Records regulations: The Federal rules restrict any use of the information to criminally investigate or prosecute any alcohol or drug abuse patient.[facility] Care Teams (unrecognized sec tion and content) Financial Planning Consultant Relationship Specialty Start Date End Date Gabriel Galvan MD [address] [place] [address] PCP - General Internal Medicine 08/28/22 Financial Planning Consultant Relationship Specialty Start Date End Date Gabriel Galvan MD [address] [place] [address] PCP - General Internal Medicine 08/28/22 Financial Planning Consultant Relationship Specialty Start Date End Date Gabriel Galvan MD [address] [place] [address] PCP - General Internal Medicine 08/28/22 Financial Planning Consultant Relationship Specialty Start Date End Date Gabriel Galvan MD [address] [place] [address] PCP - General Internal Medicine 08/28/22 Financial Planning Consultant Relationship Specialty Start Date End Date Gabriel Galvan MD [address] [place] [address], [place] [address] PCP - General Internal Medicine 08/28/22 Financial Planning Consultant Relationship Specialty Start Date End Date Gabriel Galvan MD [address] [place] [address], [place] [address] PCP - General Internal Medicine 08/28/22 Financial Planning Consultant Relationship Specialty Start Date End Date Gabriel Galvan MD [address] [place] [address], [place] [address] PCP - General Internal Medicine 08/28/22 Financial Planning Consultant Relationship Specialty Start Date End Date Gabriel Galvan MD [address] [place] [address], [place] [address] PCP - General Internal Medicine 08/28/22 Financial Planning Consultant Relationship Specialty Start Date End Date Gabriel Galvan MD [address] [place] [address], [place] [address] PCP - General Internal Medicine 08/28/22 Financial Planning Consultant Relationship Specialty Start Date End Date Gabriel Galvan MD [address] [place] [address], [place] [address] PCP - General Internal Medicine 08/28/22 Financial Planning Consultant Relationship Specialty Start Date End Date Gabriel Galvan MD [address] [place] [address], [place] [address] PCP - General Internal Medicine 08/28/22 Financial Planning Consultant Relationship Specialty Start Date End Date Gabriel Galvan MD [address] [place] [address], [place] [address] PCP - General Internal Medicine 08/28/22 Financial Planning Consultant Relationship Specialty Start Date End Date Gabriel Galvan MD [address] [facility] [place] [address] PCP - General Internal Medicine 08/28/22 Financial Planning Consultant Relationship Specialty Start Date End Date Gabriel Galvan MD [address] [facility] [place] [address] PCP - General Internal Medicine 08/28/22 Financial Planning Consultant Relationship Specialty Start Date End Date Gabriel Galvan MD [address] [facility] [place] [address] PCP - General Internal Medicine 08/28/22 Financial Planning Consultant Relationship Specialty Start Date End Date Gabriel Galvan MD [address] [facility] [place] [address] PCP - General Internal Medicine 08/28/22 Financial Planning Consultant Relationship Specialty Start Date End Date Gabriel Galvan MD [address] [facility] [place] [address] PCP - General Internal Medicine 08/28/22 Financial Planning Consultant Relationship Specialty Start Date End Date Gabriel Galvan MD [address] [facility] [place] [address] PCP - General Internal Medicine 08/28/22 Financial Planning Consultant Relationship Specialty Start Date End Date Gabriel Galvan MD [address] [facility] [place] [address] PCP - General Internal Medicine 08/28/22 FOR [...] BE BASED ON THE PRIMARY CLINICAL RECORDS. [facility] [facility]. provides no warranty or guarantee of the accuracy or completeness of information in this document.
[2023-09-29 18:30] LABS: Absolute Lymphocyte Count 1.94 X10^3/uL (0.83-4.51); Absolute Neutrophil Count 7.6 X10^3/uL (2.0-7.7); Basophil# 0.02 X10^3/uL; Basophil% 0.2 % (0-1); Eosinophil# 0.02 X10^3/uL; Eosinophils% 0.2 % (0-5); Hematocrit 35.2 % (37-47); Hemoglobin 11.6 g/dL (12.0-15.0); Lymphocyte # 1.94 X10^3/ul (0.83-4.51); Lymphocyte % 18.9 % (19-41); Mean Corpuscular Hgb 30.9 pg (27.0-32.0); Mean Corpuscular Volume 93.6 fL (81-99); Monocyte# 0.59 X10^3/uL; Monocyte% 5.8 % (0-10); NRBC Flagged by Analyzer 0 % (0-5); Neutrophil # 7.61 X10^3/uL (2.7-7.7); Neutrophil % 74.3 % (47-70); Platelet Count 258 K/mm3 (150-450); RBC Distribution Width CV 12.8 % (11.6-14.6); RBC Distribution Width SD 44.2 fl (35.1-43.9); Red Blood Count 3.76 M/mm3 (4.2-5.4); White Blood Count 10.2 K/mm3 (4.4-11.0)
--- NOTE | 2023-09-29 18:39 | CT_ITS ---
STUDY: CT ABDOMEN AND PELVIS WITH CONTRAST REASON FOR EXAM: Female, 67 years old. Diffuse abdominal pain RADIATION DOSAGE (If Supplied By Facility): CTDIvol = ( 18.51 ) mGy, DLP = ( 1220.80 ) mGycm TECHNIQUE: Transaxial images were obtained from the dome of the diaphragm to the symphysis pubis without oral contrast. IV 100mL Isovue-370 was administered. Sagittal and coronal images were reconstructed. Individualized dose optimization techniques were used for this CT. COMPARISON: 09/05/2023 FINDINGS: Chronic interstitial changes in the lung bases. The visualized portions of the heart are within normal limits. Normal liver. Liver is unremarkable. There is stable pneumobilia, likely from a stent placement within the common bile duct. Normal spleen. Normal pancreas. Normal bilateral adrenal glands. No obstructive uropathy or suspicious solid renal lesion, there are stable nonobstructing stones in both kidneys. Stable prominent retrocardiac hiatal hernia. Nondistended fluid-filled small bowel loops are noted consistent with ileus. Retained stool noted throughout the colon with scattered colonic diverticula, no CT evidence of acute diverticulitis. However, there is nonspecific thickening in the sigmoid colon and an underlying lesion cannot be excluded. There is non-visualization of the appendix. Peripheral calcifications in the abdominal aorta with mild aneurysmal dilatation at 3.55 cm infrarenally. There is mural thrombus but no evidence of dissection. Normal inferior vena cava. Normal retroperitoneum. Normal urinary bladder. Normal abdominal wall. There are diffuse degenerative changes of the visualized lumbar spine, and pelvis. CT/Abdomen/Pelvis W IV Cont ONLY IMPRESSION: Stable pneumobilia from stent placement within the biliary tree. No complications or change since the previous study. Stable nonobstructing nephrolithiasis Stable retrocardiac hiatal hernia Colonic diverticulosis without evidence of acute diverticulitis. There is nonspecific thickening in the sigmoid and an underlying lesion cannot be excluded. Small bowel ileus Degenerative bony changes Stable aneurysmal dilatation of the infrarenal abdominal aorta No significant interval change Electronically Signed: Bentley Khan MD at 19:20 EST ,
[2023-09-29] MEDS: Morphine 4 MG/ML Syringe IV (18:46)
[2023-09-29 18:49] LABS: ALB/GLOB Ratio 0.7 RATIO (0.9-2.4); AST(SGOT) 10 U/L (15-37); Alanine Aminotransfer ALT/SGPT 12 U/L (13-56); Albumin, Serum 2.9 g/dL (3.2-5.0); Alkaline Phosphatase 107 U/L (45-117); Anion Gap 4 (5-15); BUN 16 mg/dL (7-18); BUN/Creat Ratio 17.2 RATIO (10-20); Calcium,Total 9.2 mg/dL (8.5-10.1); Chloride 109 mmol/L (98-107); Creatinine, Serum 0.93 mg/dL (0.55-1.02); EST Glomerular Filtration Rate 64 mL/min (>60); Est Glom Filt Rate - Afr Amer 78 mL/min (>60); Estimated Creatinine Clearance 70.55 ml/min; Globulin 3.9 g/dL (2.2-4.2); Glucose 122 mg/dL (74-106); Lipase 16 U/L (13-75); Potassium 3.9 mmol/L (3.5-5.1); Protein, Total 6.8 g/dL (6.4-8.2); Sodium Level 141 mmol/L (136-145); Troponin-I HS (w/2H Reflex) 34 pg/mL (3.0-54.0)
[2023-09-29 19:53] VITALS: BP 159/83; PULSE 70; RESP 13; O2SAT 95
[2023-09-29 20:21] LABS: Reflex Troponin-HS? (from REC) Y
[2023-09-29 20:50] LABS: Troponin-I HS 31 pg/mL (3.0-54.0)
[2023-09-29] MEDS: Dicyclomine 20 MG/2 ML Vial IM (21:00)
[2023-09-29 21:30] VITALS: BP 163/80; PULSE 70; RESP 20; O2SAT 97
[2023-09-29 21:32] VITALS: BP 163/80; PULSE 70; RESP 16; O2SAT 97
== END 2023-09-29 21:39 | disposition home or self-care (01) ==
PROVIDERS: Emergency Provider Emergency Medicine; PCP Family Medicine; Visit Provider Emergency Medicine
DX: R10.13 Epigastric pain (principal); J44.9 Chronic obstructive pulmonary disease, unspecified; I50.9 Heart failure, unspecified; R07.9 Chest pain, unspecified; I25.10 Atherosclerotic heart disease of native coronary artery without angina pectoris; I25.2 Old myocardial infarction; G47.33 Obstructive sleep apnea (adult) (pediatric); Z87.891 Personal history of nicotine dependence; Z86.718 Personal history of other venous thrombosis and embolism; Z86.73 Personal history of transient ischemic attack (TIA), and cerebral infarction without residual deficits
CPT/HCPCS: 71045; 74177; 80053; 83690; 84484; 85025; 93005; 96361; 96372; 96374; 99285; J7030; Q9967; A4216

== ENCOUNTER 2023-11-30 09:34 | Emergency (ER) | payer MEDICARE, MEDICAID, SELFPAY ==
[2023-11-30 09:35] VITALS: BP 162/116; PULSE 98; RESP 18; TEMP 36.5; O2SAT 92; BMI 33.7
--- NOTE | 2023-11-30 10:13 | CT_ITS ---
STUDY: CT CHEST WITHOUT CONTRAST REASON FOR EXAM: Female, 68 years old. Bilateral posterior rib pain s/p fall RADIATION DOSAGE (If Supplied By Facility): CTDIvol = ( 16.59 ) mGy, DLP = ( 588.68 ) mGycm TECHNIQUE: Transaxial imaging was performed without the administration of intravenous contrast material. Multiplanar coronal and sagittal images were reformatted. Individualized dose optimization techniques were used for this CT. COMPARISON: Comparison is made with prior study dated June 09, 2022. FINDINGS: CHEST Heterogeneous appearance of the thyroid gland. Minimal degree of the bibasilar scarring. There is no demonstrated pleural abnormality. There are calcifications of the coronary arteries. Minimal pericardial thickening. There are small lymph nodes within the mediastinum, which are normal in size and morphology most compatible with reactive lymph hyperplasia. Normal hilar regions. Normal unenhanced pulmonary arteries. There is atherosclerotic calcification of the aortic arch with tortuosity and elongation of the aortic arch and descending thoracic aorta. There are multi-level degenerative changes of the thoracic spine. Minimal loss of height of the superior endplate of the T5 vertebrae. Moderate-sized hiatal hernia. CT/Chest without Contrast IMPRESSION: Minimal loss of height of the superior endplate of the T5 vertebrae. This is new as compared to prior study. Minimal pericardial thickening. Electronically Signed: Desmond Mojica MD at 11:10 EDT ,
--- NOTE | 2023-11-30 10:14 | EDS_ITS ---
HPI History of Present Illness Chief Complaint: Back Informant: patient and family Narrative Narrative: 68-year-old female presenting to the emergency room with a chief complaint of bilateral mid back/upper back pain. Patient states that about 1 week ago while at nursing home facility she fell after tripping on some metal equipment in a friend's room. She states that she fell forward and the next day felt generally sore particularly on the right side of her neck. Several days later she began to have pain across to her ribs posteriorly. It is worse with movement and with a cough. She has a chronic cough. Patient notes that she has been able to ambu late in her arms appear without any significant complaint. [facility] Medical History Anxiety and depression Arthritis Atherosclerotic heart disease of [place] coronary artery without angina pectoris Back pain Bullous emphysema Calculus of left kidney Cardiology follow-up encounter Chest pain Chronic cough COPD (chronic obstructive pulmonary disease) COPD with asthma Depression Difficulty chewing DVT (deep venous thrombosis) Easy bruising Elevated troponin Esophagitis, unspecified without bleeding Essential hypertension Excessive bleeding Gastric reflux GERD (gastroesophageal reflux disease) High cholesterol History of CHF (congestive heart failure) History of echocardiogram History of edema History of irregular heartbeat History of non-ST elevation myocardial infarction (NSTEMI) (09/01/21) History of pain when walking History of renal disease History of stress test History of ulceration Hoarseness Hyperlipidemia Injury of back Ischemic cardiomyopathy Kidney stones Leg cramps Myocardial infarct Obesity (BMI 30.0-34.9) Old anterior wall myocardial infarction Opiate dependence EVELYN (obstructive sleep apnea) Osteoporosis Other chronic pain Personal history of transient ischemic attack (TIA), and cerebral infarction without residual deficits Post-menopausal Shortness of breath on exertion Smoker Sustained SVT TIA (transient ischemic attack) Tobacco abuse Unspecified combined 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 Wears glasses Home Medications atorvastatin 40 mg tablet (Lipitor) 40 mg PO QHS 30 days #30 tabs 01/04/23 [Rx Last Taken Unknown] clopidogrel 75 mg tablet (Plavix) 75 mg PO DAILY 30 days #30 tabs 01/04/23 [Rx Last Taken 09/25/23] lisinopril 2.5 mg tablet 2.5 mg PO DAILY 30 days #30 tabs 01/04/23 [Rx Last Taken 06/24/23] ondansetron 4 mg disintegrating tablet 4 mg PO Q8H PRN PRN Nausea #12 tabs 01/13/23 [Rx Last Taken Unknown] albuterol sulfate 90 mcg/actuation aerosol inhaler 2 puff inhalation Q6H PRN shortness of breath or wheezing #8.5 grams 02/17/23 [Rx Last Taken Unknown] budesonide-formoterol HFA 160 mcg-4.5 mcg/actuation aerosol inhaler (Symbicort) 1 puff inhalation BID #10.2 grams 02/17/23 [Rx Last Taken Unknown] inhalational spacing device (Aerochamber MV spacer) #1 ea 02/17/23 [Rx Last Taken Unknown] tiotropium bromide 2.5 mcg/actuation mist for inhalation (Spiriva Respimat) 2 puff inhalation DAILY #4 grams 02/17/23 [Rx Last Taken Unknown] pantoprazole 40 mg tablet,delayed release 40 mg PO Q12H #60 tabs 06/24/23 [Rx Last Taken 09/28/23] lorazepam 1 mg tablet (Ativan) 1 mg PO BID PRN anxiety 07/16/23 [History Last Taken 09/28/23] amiodarone 200 mg tablet 200 mg PO DAILY 07/22/23 [History Last Taken Unknown] carvedilol 6.25 mg tablet 6.25 mg PO Q12H 07/29/23 [History Last Taken 09/28/23] furosemide 20 mg tablet 20 mg PO Q12H 07/29/23 [History Last Taken Unknown] gabapentin 400 mg capsule 400 mg PO Q8H 07/29/23 [History Last Taken 09/28/23] nitroglycerin 0.4 mg sublingual tablet 0.4 mg buccal Q5M PRN chest pain 07/29/23 [History Last Taken Unknown] oxycodone myristate 9 mg capsule sprinkle extended release 12 hr(DON'T CRUSH) (Xtampza ER) 13.5 mg PO Q12H 07/29/23 [History Last Taken Unknown] sucralfate 1 gram tablet 1 g PO Q8H 07/29/23 [History Last Taken Unknown] albuterol sulfate 2.5 mg/3 mL (0.083 %) solution for nebulization 2.5 mg continuous nebulization Q6H PRN shortness of breath or wheezing 09/05/23 [History Last Taken Unknown] melatonin 3 mg capsule 3 mg PO QHS 09/05/23 [History Last Taken Unknown] Allergy/AdvReac Type Severity Reaction Status Date / Time No Known Allergies Allergy Verified 11/30/23 09:38 Family History Mother Hypertension CAD (coronary artery disease) CVA (cerebral vascular accident) Myocardial infarction Grandmother Myocardial infarction Surgical History History of cardiac catheterization History of hysterectomy History of left heart catheterization (01/20/22) History of total hysterectomy Hx of appendectomy Hx of esophagogastroduodenoscopy Social History household members: none Smoking Status: Former smoker alcohol intake: never substance use type: does not use ROS ROS ED Constitutional Constitutional ED: Denies chills, fever(s) or weight loss Eyes Eyes: Denies change in vision or diplopia ENT ENT ED: Denies ear pain, rhinorrhea or sore throat Cardiovascular Cardiovascular: Denies chest pain, orthopnea, palpitations or racing heartbeat Respiratory/Chest Respiratory/Chest: Reports cough; Denies dyspnea, dyspnea on exertion or orthopnea Gastrointestinal Gastrointestinal: Reports other Details: Foul-smelling burps which she states she is waiting to see gastroenterology for. ; Denies abdominal pain, diarrhea, nausea or vomiting Genitourinary Genitourinary ED: Denies dysuria, hematuria or urinary frequency Musculoskeletal Musculoskeletal: Reports back pain and neck pain; Denies arthralgias or myalgias Integumentary Denies abscess or rash Neurologic Neurologic: Denies headache(s) or weakness Psychiatric Psychiatric: Denies anxiety, depression, suicidal ideation or suicidal thoughts Endocrine Endocrinology: Denies polydipsia, polyphagia or polyuria Allergic/Immunologic Allergic/Immunologic ED: Denies mouth swelling, tongue swelling or urticaria EXAM Physical Exam Const Vital Signs: 11/30/23 09:35 11/30/23 11:35 Temperature 97.7 F L Temperature Source Temporal Pulse Rate 98 77 Respiratory Rate 18 18 Blood Pressure 162/116 H 166/97 H Blood Pressure Mean 131 120 Pulse Ox 92 94 Oxygen Delivery Method Room Air Room Air Positive well nourished, well developed and obese General Appearance ED: well developed Nutritional Appearance: obese HEENT Reports normocephalic, head/scalp atraumatic and moist mucous membranes Eyes PERRL and EOMs intact bilaterally Neck no lymphadenopathy, supple and no JVD Neck Narrative: Patient reports soreness on the right side of her neck with movement. No midline tenderness. Resp normal respiratory effort and clear to auscultation bilaterally Cardio regular rate, regular rhythm and no murmurs GI normal to inspection, nondistended, normoactive bowel sounds and non-tender Palpation: soft Back/Spine no CVA tenderness and normal ROM Back/Spine Narrative: No midline thoracic or lumbar spine pain. Patient has slow deliberate movements when she goes to sit up and sit on the side of the bed. She has tenderness over the posterior ribs from about shoulder height down to around T10. No palpable crepitance. Extremity normal to inspection General Extremety ED: Negative for edema General Extremity: Negative for edema Neuro oriented x3 and CN's II-XII intact bilaterally Sensorium / Orientation: alert Motor Exam: strength 5/5 throughout Psych mental status grossly normal Mood & Affect: Negative for depressed or tearful Skin no rashes or lesions noted and no wounds MDM MDM MDM Narrative Medical decision making narrative: Noncontrasted CT of the chest was obtained to evaluate for the possibility of rib fracture or spinal fracture. This shows a slight decrease in the anterior height of T5. This is new since prior study. Her fall does not appear to be axial loading in nature. It is difficult to say if this fall could have resulted in this or if this was a prior injury. But she was not experiencing a ny midline pain. Her pain is more diffuse and in the muscle. Would recommend heat some anti-inflammatories if able to tolerate. We can try a muscle relaxant. Would recommend follow-up if not improving in 1 to 2 weeks. History & Record Review Discussion w/independent historian: Patient and Family Additional record(s) reviewed:: Prior ED visit and Prior labs Radiography Diagnostic Testing: Clinical Impression(s) from Imaging Studies Chest CT 11/30/23 10:13 IMPRESSION: Minimal loss of height of the superior endplate of the T5 vertebrae. This is new as compared to prior study. Minimal pericardial thickening. Electronically Signed: Desmond Mojica MD at 11:10 EDT , Discharge Plan Triage Chief Complaint: Back ED Provider: Oren Hathaway Dx/Rx/DC Orders Prescriptions: No Action budesonide-formoterol [Symbicort] 160-4.5 mcg/actuation HFA aerosol inhaler 1 puff inhalation BID Qty: 10.2 11RF Spiriva Respimat 2.5 mcg/actuation mist 2 puff inhalation DAILY Qty: 4 11RF albuterol sulfate 90 mcg/actuation HFA aerosol inhaler 2 puff inhalation Q6H MDD 10 puffs PRN (Reason: shortness of breath or wheezing) Qty: 8.5 6RF Rx Instructions: This inhaler must be used with a spacer device. (DME) Aerochamber MV Spacer See Rx Instructions .ROUTE .MEDSUPPLY Qty: 1 0RF Rx Instructions: As directed lorazepam [Ativan] 1 mg tablet 1 mg PO BID PRN (Reason: anxiety) atorvastatin [Lipitor] 40 mg tablet 40 mg PO QHS 30 Days Qty: 30 0RF Hold Instructions: Order Changed clopidogrel [Plavix] 75 mg tablet 75 mg PO DAILY 30 Days Qty: 30 0RF lisinopril 2.5 mg tablet 2.5 mg PO DAILY 30 Days Qty: 30 0RF ondansetron 4 mg tablet,disintegrating 4 mg PO Q8H PRN PRN (Reason: Nausea) Qty: 12 0RF pantoprazole 40 mg tablet,delayed release (DR/EC) 40 mg PO Q12H Qty: 60 3RF albuterol sulfate 2.5 mg /3 mL (0.083 %) solution for nebulization 2.5 mg continuous nebulization Q6H PRN (Reason: shortness of breath or wheezing) melatonin 3 mg capsule 3 mg PO QHS amiodarone 200 mg tablet 200 mg PO DAILY gabapentin 400 mg capsule 400 mg PO Q8H carvedilol 6.25 mg tablet 6.25 mg PO Q12H furosemide 20 mg tablet 20 mg PO Q12H nitroglycerin 0.4 mg tablet, sublingual 0.4 mg buccal Q5M PRN (Reason: chest pain) Xtampza ER 9 mg cap,sprinkl,ER12hr(DONT CRUSH) 13.5 mg PO Q12H Hold Instructions: MD Ordered sucralfate 1 gram tablet 1 g PO Q8H Primary Care Provider: Sandy Barbosa Referrals: Sandy Barbosa MD [Primary Care Provider] -
[2023-11-30 11:35] VITALS: BP 166/97; PULSE 77; RESP 18; O2SAT 94
[2023-11-30 12:00] VITALS: BP 166/97; PULSE 77; RESP 18; TEMP 37.1; O2SAT 94
== END 2023-11-30 12:46 | disposition home or self-care (01) ==
PROVIDERS: Emergency Provider Emergency Medicine; PCP Internal Medicine; Visit Provider Emergency Medicine
DX: M54.9 Dorsalgia, unspecified (principal); I50.9 Heart failure, unspecified; J44.9 Chronic obstructive pulmonary disease, unspecified; I25.2 Old myocardial infarction; G47.33 Obstructive sleep apnea (adult) (pediatric); I25.10 Atherosclerotic heart disease of native coronary artery without angina pectoris; E66.9 Obesity, unspecified; Z79.51 Long term (current) use of inhaled steroids; Z79.899 Other long term (current) drug therapy; Z79.01 Long term (current) use of anticoagulants; Z86.718 Personal history of other venous thrombosis and embolism; Z87.891 Personal history of nicotine dependence
CPT/HCPCS: 71250; 99282

== ENCOUNTER 2023-11-30 20:12 | Emergency (ER) | payer MEDICARE, MEDICAID, SELFPAY ==
--- NOTE | 2023-11-30 20:16 | ED.RN ---
While checking in patient, son comes in to room. He asks if she will see the same doctor that she seen this morning, informed that doctor is no longer on. Son informed patient he asked squad if she was stable enough to go to [facility], and they reported yes to him, so he told her she needed to get out of the bed and he was taking her to [facility]. Attempted to discuss care with patient and son, he interrupted and states nothing against you, but they didn't do blood work or anything this morning so she is going to another hospital. Removed IV and patient ambulates out of department without difficulty.
== END 2023-11-30 20:22 | disposition left against medical advice (07) ==
LOC: ED 20:22
PROVIDERS: PCP Internal Medicine
DX: Z53.21 Procedure and treatment not carried out due to patient leaving prior to being seen by health care provider (principal)

== ENCOUNTER 2023-12-29 08:53 | Emergency (ER) | payer MEDICARE, MEDICAID, SELFPAY ==
[2023-12-29 08:54] VITALS: BP 100/65; PULSE 111; RESP 18; TEMP 36.4; O2SAT 94
[2023-12-29 09:11] VITALS: BMI 32.5
--- NOTE | 2023-12-29 10:01 | EX.ED.DYSGE1 ---
HPI History of Present Illness Chief Complaint: Wound Check Informant: patient Onset/Context/Timing Onset: Today Context: Sudden Onset Timing: Continuous Quality: Cramping Location: Right upper abdomen Worsened by: Nothing Relieved by: Nothing Narrative Narrative: Patient presents with right upper abdominal pain that became worse today. Patient states that she woke up today and noticed that her drain tube was pulled out. Patient had a recent cholecystectomy done at [facility] by Dr. Tejada. Patient was discharged from there yesterday. Patient complains of pain in her right upper abdomen that radiates into her left shoulder. Patient describes it as cramping. Patient states nothing makes it better and nothing makes it worse. Patient states she has been having some nausea and vomiting. Patient admits to some subjective chills but denies any fever. Patient denies any urinary complaints. [facility] Medical History Anxiety and depression Arthritis Atherosclerotic heart disease of [place] coronary artery without angina pectoris Back pain Bullous emphysema Calculus of left kidney Cardiology follow-up encounter Chest pain Chronic cough COPD (chronic obstructive pulmonary disease) COPD with asthma Depression Difficulty chewing DVT (deep venous thrombosis) Easy bruising Elevated troponin Esophagitis, unspecified without bleeding Essential hypertension Excessive bleeding Gastric reflux GERD (gastroesophageal reflux disease) High cholesterol History of CHF (congestive heart failure) History of echocardiogram History of edema History of irregular heartbeat History of non-ST elevation myocardial infarction (NSTEMI) (09/01/21) History of pain when walking History of renal disease History of stress test History of ulceration Hoarseness Hyperlipidemia Injury of back Ischemic cardiomyopathy Kidney stones Leg cramps Myocardial infarct Obesity (BMI 30.0-34.9) Old anterior wall myocardial infarction Opiate dependence EVELYN (obstructive sleep apnea) Osteoporosis Other chronic pain Personal history of transient ischemic attack (TIA), and cerebral infarction without residual deficits Post-menopausal Shortness of breath on exertion Smoker Sustained SVT TIA (transient ischemic attack) Tobacco abuse Unspecified combined 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 Wears glasses Home Medications atorvastatin 40 mg tablet (Lipitor) 40 mg PO QHS 30 days #30 tabs 01/04/23 [Rx Last Taken Unknown] clopidogrel 75 mg tablet (Plavix) 75 mg PO DAILY 30 days #30 tabs 01/04/23 [Rx Last Taken 09/25/23] lisinopril 2.5 mg tablet 2.5 mg PO DAILY 30 days #30 tabs 01/04/23 [Rx Last Taken 06/24/23] ondansetron 4 mg disintegrating tablet 4 mg PO Q8H PRN PRN Nausea #12 tabs 01/13/23 [Rx Last Taken Unknown] albuterol sulfate 90 mcg/actuation aerosol inhaler 2 puff inhalation Q6H PRN shortness of breath or wheezing #8.5 grams 02/17/23 [Rx Last Taken Unknown] budesonide-formoterol HFA 160 mcg-4.5 mcg/actuation aerosol inhaler (Symbicort) 1 puff inhalation BID #10.2 grams 02/17/23 [Rx Last Taken Unknown] inhalational spacing device (Aerochamber MV spacer) #1 ea 02/17/23 [Rx Last Taken Unknown] tiotropium bromide 2.5 mcg/actuation mist for inhalation (Spiriva Respimat) 2 puff inhalation DAILY #4 grams 02/17/23 [Rx Last Taken Unknown] pantoprazole 40 mg tablet,delayed release 40 mg PO Q12H #60 tabs 06/24/23 [Rx Last Taken 09/28/23] lorazepam 1 mg tablet (Ativan) 1 mg PO BID PRN anxiety 07/16/23 [History Last Taken 09/28/23] amiodarone 200 mg tablet 200 mg PO DAILY 07/22/23 [History Last Taken Unknown] carvedilol 6.25 mg tablet 6.25 mg PO Q12H 07/29/23 [History Last Taken 09/28/23] furosemide 20 mg tablet 20 mg PO Q12H 07/29/23 [History Last Taken Unknown] gabapentin 400 mg capsule 400 mg PO Q8H 07/29/23 [History Last Taken 09/28/23] nitroglycerin 0.4 mg sublingual tablet 0.4 mg buccal Q5M PRN chest pain 07/29/23 [History Last Taken Unknown] oxycodone myristate 9 mg capsule sprinkle extended release 12 hr(DON'T CRUSH) (Xtampza ER) 13.5 mg PO Q12H 07/29/23 [History Last Taken Unknown] sucralfate 1 gram tablet 1 g PO Q8H 07/29/23 [History Last Taken Unknown] albuterol sulfate 2.5 mg/3 mL (0.083 %) solution for nebulization 2.5 mg continuous nebulization Q6H PRN shortness of breath or wheezing 09/05/23 [History Last Taken Unknown] melatonin 3 mg capsule 3 mg PO QHS 09/05/23 [History Last Taken Unknown] cyclobenzaprine 5 mg tablet 5 mg PO TID PRN muscle spasm #15 tabs 11/30/23 [Rx Last Taken Unknown] Allergy/AdvReac Type Severity Reaction Status Date / Time No Known Allergies Allergy Verified 12/29/23 08:54 Family History Mother Hypertension CAD (coronary artery disease) CVA (cerebral vascular accident) Myocardial infarction Grandmother Myocardial infarction Surgical History History of cardiac catheterization History of hysterectomy History of left heart catheterization (01/20/22) History of total hysterectomy Hx of appendectomy Hx of esophagogastroduodenoscopy Social History household members: none Smoking Status: Former smoker alcohol intake: never substance use type: does not use ROS ROS ED Constitutional Constitutional ED: Reports chills and subjective; Denies fever(s) Eyes Eyes: Denies blurry vision or change in vision ENT ENT ED: Denies rhinorrhea or sore throat Cardiovascular Cardiovascular: Reports chest pain; Denies palpitations Respiratory/Chest Respiratory/Chest: Denies cough or dyspnea Gastrointestinal Gastrointestinal: Reports abdominal pain, nausea and vomiting Genitourinary Genitourinary ED: Denies dysuria or hematuria Musculoskeletal Musculoskeletal: Reports back pain and neck pain Integumentary Denies abscess or rash Neurologic Neurologic: Reports headache(s); Denies weakness Allergic/Immunologic Allergic/Immunologic ED: Denies mouth swelling or urticaria EXAM Physical Exam Const Vital Signs: 12/29/23 08:54 12/29/23 11:00 12/29/23 13:00 Temperature 97.6 F L Temperature Source Temporal Pulse Rate 111 H 73 81 Respiratory Rate 18 18 20 H Blood Pressure 100/65 154/84 H 160/91 H Blood Pressure Mean 76 103 114 Pulse Ox 94 93 93 Oxygen Delivery Method Room Air Room Air Positive well nourished, well developed and obese General Appearance ED: well developed and NAD Nutritional Appearance: obese HEENT Reports moist mucous membranes Neck supple and no JVD Resp normal respiratory effort and clear to auscultation bilaterally Cardio regular rhythm Rate: tachycardic GI non-distended Palpation: soft and tender epigastric, RLQ, LUQ and RUQ; Negative for guarding or rebound tenderness present Extremity normal to inspection Neuro oriented x3, CN's II-XII intact bilaterally and no sensory deficits noted Sensorium / Orientation: alert Motor Exam: strength 5/5 throughout Psych mental status grossly normal Skin Skin Narrative: There is a puncture wound noted over the right upper abdomen. There is no active bleeding noted. There there is no erythema noted. There is no gapping of the margins. MDM MDM MDM Narrative Medical decision making narrative: Differential diagnosis includes postoperative pain, abscess, infection, bowel obstruction, perforation, pancreatitis, urinary tract infection, electrolyte abnormality, coagulopathy, postoperative bleeding. CT scan of the abdomen and pelvis will be obtained to assess for bowel obstruction, perforation, bleeding, and abscess. CBC will be obtained to assess for leukocytosis and anemia. Comprehensive metabolic profile will be obtained to assess for hepatic function, renal function, and electrolyte abnormality. Lipase will be obtained to assess for pancreatitis. PT with INR and PTT will be obtained to assess for coagulopathy. Urinalysis will be obtained to assess for urinary tract infection. Lab Data Attestation: I reviewed the patient's lab results. Lab results narrative: CBC was reviewed. There is a mild anemia with a hemoglobin of 11.1 and hematocrit of 34.9. Comprehensive metabolic profile was reviewed. AST was slightly elevated at 44. Alkaline phosphatase was slightly elevated at 182. The remainder is within normal limits. Lipase was reviewed and was normal at 11. Urinalysis was reviewed. There is no evidence of urinary tract infection or hematuria. Labs: Laboratory Results - last 24 hr 12/29/23 12/29/23 09:40 10:30 WBC 6.8 RBC 3.68 L Hgb 11.1 L Hct 34.9 L MCV 94.8 MCH 30.2 MCHC 31.8 L RDW Std Deviation 43.4 RDW Coeff of Sariah 12.6 Plt Count 362 MPV 8.5 Immature Gran % (Auto) 0.300 Neut % (Auto) 69.5 Lymph % (Auto) 18.8 L [place] % (Auto) 6.4 Eos % (Auto) 4.1 Baso % (Auto) 0.9 Absolute Neuts (auto) 4.7 Absolute Lymphs (auto) 1.27 Nucleated RBC % 0 PT 13.7 INR 1.1 APTT 35.5 Sodium 140 Potassium 3.8 Chloride 105 Carbon Dioxide 31.0 Anion Gap 4 L BUN 9 Creatinine 1.00 Estim Creat Clear Calc 64.33 Est GFR (MDRD) Af Amer 71 Est GFR (MDRD) Non-Af 59 L BUN/Creatinine Ratio 9.0 L Glucose 103 Calcium 9.3 Total Bilirubin 0.30 AST 44 H ALT 31 Alkaline Phosphatase 182 H Total Protein 7.3 Albumin 2.5 L Globulin 4.8 H Albumin/Globulin Ratio 0.5 L Lipase 11 L Urine Color Yellow Urine Clarity Clear Urine pH 5.0 Ur Specific [place] 1.025 Urine Protein 15 H Urine Glucose (UA) Normal Urine Ketones Negative Urine Occult Blood 10 H Urine Nitrite Negative Urine Bilirubin Negative Urine Urobilinogen Normal Ur Leukocyte Esterase 100 H Urine RBC 0 SEEN Urine WBC 0-5 SEEN Ur Squamous Epith Cells 0 SEEN Urine Bacteria 0 SEEN Urine Mucus 0 SEEN Radiography Diagnostic Testing: Clinical Impression(s) from Imaging Studies Abdomen/Pelvis CT 12/29/23 10:02 IMPRESSION: Findings suggestive of atelectasis at the right lung base. Mildly dilated intrahepatic biliary ducts. Dilated common bile duct measuring 1.6 cm in transverse dimension. Focal heterogeneous appearance of the inferior aspect of the right lobe of the liver. This may represent possible early abscess formation. The previously seen stent in the common bile duct is not seen at this time. Nonobstructive left intrarenal calculi. Sigmoid diverticulosis. Stable aneurysmal dilatation of the abdominal aorta. Electronically Signed: Desmond Mojica MD at 12:33 EDT , CT scan of the abdomen and pelvis was obtained. There is mildly dilated intrahepatic biliary duct. There is a dilated common bile duct measuring 1.6 cm. There is a focal heterogeneous appearance of the inferior aspect of the right lobe of the liver. This may represent possible early abscess formation. This was interpreted by the radiologist and was also independently reviewed by myself. Treatment and Re-Evaluation :: Patient was given IV fluids, morphine, and Zofran. Patient stated that she has an allergy to CT scan dye. Patient states it made her short of breath the last time she had it. Because of this, patient was given a dose of Benadryl. Patient was given a repeat dose of morphine. Patient and family were advised of findings. Case was discussed with Dr. Tejada. He states that the possible early abscess formation was present previously and that is why the drain tube was in there initially. He stated that since the drain tube has been pulled out, it can stay out. Patient is on cefepime through her PICC line. Dr. Tejada stated that the patient could go back to the [facility] and continue cefepime as prescribed. Patient and family were advised of Dr. Tejada's recommendations. They are agreeable with plan. All questions were answered. Discharge Plan Triage Chief Complaint: Wound Check ED Provider: Adryan Aguilera Dx/Rx/DC Orders Clinical Impression: Postoperative abdominal pain, Tobacco abuse Instructions: ED Post Op Wound Check, Pain Prescriptions: No Action budesonide-formoterol [Symbicort] 160-4.5 mcg/actuation HFA aerosol inhaler 1 puff inhalation BID Qty: 10.2 11RF Spiriva Respimat 2.5 mcg/actuation mist 2 puff inhalation DAILY Qty: 4 11RF albuterol sulfate 90 mcg/actuation HFA aerosol inhaler 2 puff inhalation Q6H MDD 10 puffs PRN (Reason: shortness of breath or wheezing) Qty: 8.5 6RF Rx Instructions: This inhaler must be used with a spacer device. (DME) Aerochamber MV Spacer See Rx Instructions .ROUTE .MEDSUPPLY Qty: 1 0RF Rx Instructions: As directed lorazepam [Ativan] 1 mg tablet 1 mg PO BID PRN (Reason: anxiety) atorvastatin [Lipitor] 40 mg tablet 40 mg PO QHS 30 Days Qty: 30 0RF Hold Instructions: Order Changed clopidogrel [Plavix] 75 mg tablet 75 mg PO DAILY 30 Days Qty: 30 0RF lisinopril 2.5 mg tablet 2.5 mg PO DAILY 30 Days Qty: 30 0RF ondansetron 4 mg tablet,disintegrating 4 mg PO Q8H PRN PRN (Reason: Nausea) Qty: 12 0RF pantoprazole 40 mg tablet,delayed release (DR/EC) 40 mg PO Q12H Qty: 60 3RF albuterol sulfate 2.5 mg /3 mL (0.083 %) solution for nebulization 2.5 mg continuous nebulization Q6H PRN (Reason: shortness of breath or wheezing) melatonin 3 mg capsule 3 mg PO QHS amiodarone 200 mg tablet 200 mg PO DAILY gabapentin 400 mg capsule 400 mg PO Q8H carvedilol 6.25 mg tablet 6.25 mg PO Q12H furosemide 20 mg tablet 20 mg PO Q12H nitroglycerin 0.4 mg tablet, sublingual 0.4 mg buccal Q5M PRN (Reason: chest pain) Xtampza ER 9 mg cap,sprinkl,ER12hr(DONT CRUSH) 13.5 mg PO Q12H Hold Instructions: MD Ordered sucralfate 1 gram tablet 1 g PO Q8H cyclobenzaprine 5 mg tablet 5 mg PO TID PRN (Reason: muscle spasm) Qty: 15 0RF Primary Care Provider: Sandy Barbosa Referrals: Oren Tejada MD [Med Staff - Active Staff] - 3-5 Days Sandy Barbosa MD [Primary Care Provider] - Disposition Disposition: Retirement Facility Discharge Location: [facility]
--- NOTE | 2023-12-29 10:02 | CT_ITS ---
STUDY: CT ABDOMEN AND PELVIS WITH CONTRAST REASON FOR EXAM: Female, 68 years old. Abdominal pain -- IV PO Contrast RADIATION DOSAGE (If Supplied By Facility): CTDIvol = ( 16.13 ) mGy, DLP = ( 1230.51 ) mGycm TECHNIQUE: Transaxial images were obtained from the dome of the diaphragm to the symphysis pubis with oral contrast. Oral and amp; IV Gastrografin and amp; 100mL Isovue-300 was administered. Sagittal and coronal images were reconstructed. Individualized dose optimization techniques were used for this CT. COMPARISON: Comparison is made with prior study dated September 29, 2023. FINDINGS: Mild increased markings at the right lung base with focal atelectasis. Coronary artery calcification. Mild dilatation of central intrahepatic biliary ducts. There is a 4.1 cm in length by 1.4 cm in width area of altered attenuation in the anterior inferior aspect of the right lobe of the liver. This may represent a focal area of possible early abscess formation. Increased markings are seen in the surrounding peritoneal fat. The previously seen common bile duct stent is not seen. The gallbladder is contracted. Air is seen within the gallbladder. Increased markings are seen within the peritoneal fat surrounding the gallbladder. The common bile duct is dilated down to its insertion into the ampulla Vater and measures 1.6 cm. Normal spleen. Normal pancreas. Normal bilateral adrenal glands. Normal right kidney. Tiny nonobstructive left intrarenal calculi are present. Moderate-sized hiatal hernia. Normal small intestine. There are multiple colonic diverticula consistent with diverticulosis. The patient is status post appendectomy. There is diffuse atherosclerotic calcification of the abdominal aorta and its major visceral branches. There is evidence of a fusiform infrarenal abdominal aortic aneurysm with a transverse dimension of 3 cm. Mural clot is seen. Normal inferior vena cava. Normal retroperitoneum. Normal urinary bladder. There is absence of the uterus consistent with a prior hysterectomy. Normal abdominal wall. There are degenerative changes of the visualized lumbar spine. CT/Abdomen/Pelvis WITH Contrast IMPRESSION: Findings suggestive of atelectasis at the right lung base. Mildly dilated intrahepatic biliary ducts. Dilated common bile duct measuring 1.6 cm in transverse dimension. Focal heterogeneous appearance of the inferior aspect of the right lobe of the liver. This may represent possible early abscess formation. The previously seen stent in the common bile duct is not seen at this time. Nonobstructive left intrarenal calculi. Sigmoid diverticulosis. Stable aneurysmal dilatation of the abdominal aorta. Electronically Signed: Desmond Mojica MD at 12:33 EDT ,
[2023-12-29 10:21] LABS: Bacteria 0 SEEN /hpf (None Seen); Mucous, Urine 0 SEEN /hpf (<or=2+); Red Blood Cells-Urine 0 SEEN /hpf (0-5); Squamous Epithelial Cells - UA 0 SEEN /hpf (5-10)
[2023-12-29] MEDS: Morphine 4 MG/ML Syringe IV ×2 (10:22→13:52)
[2023-12-29] MEDS: DiphenhydrAMINE 50 MG/ML Syringe 25 MG IV (10:22)
[2023-12-29] MEDS: Ondansetron 4 MG/2 ML Vial IV (10:22)
[2023-12-29 10:48] LABS: Absolute Lymphocyte Count 1.27 X10^3/uL (0.83-4.51); Absolute Neutrophil Count 4.7 X10^3/uL (2.0-7.7); Basophil# 0.06 X10^3/uL; Basophil% 0.9 % (0-1); Eosinophil# 0.28 X10^3/uL; Eosinophils% 4.1 % (0-5); Hematocrit 34.9 % (37-47); Hemoglobin 11.1 g/dL (12.0-15.0); Lymphocyte # 1.27 X10^3/ul (0.83-4.51); Lymphocyte % 18.8 % (19-41); Mean Corp Hgb Conc 31.8 g/dL (32-36); Mean Corpuscular Hgb 30.2 pg (27.0-32.0); Mean Corpuscular Volume 94.8 fL (81-99); Mean Platelet Vol. 8.5 fl (6.2-12.0); Monocyte# 0.43 X10^3/uL; Monocyte% 6.4 % (0-10); NRBC Flagged by Analyzer 0 % (0-5); Neutrophil # 4.69 X10^3/uL (2.7-7.7); Neutrophil % 69.5 % (47-70); Platelet Count 362 K/mm3 (150-450); RBC Distribution Width CV 12.6 % (11.6-14.6); RBC Distribution Width SD 43.4 fl (35.1-43.9); Red Blood Count 3.68 M/mm3 (4.2-5.4); White Blood Count 6.8 K/mm3 (4.4-11.0)
[2023-12-29 10:55] LABS: Color, Urine Yellow (Yellow); Glucose, Dipstick Normal (Normal); Ketone-Dipstick Negative (Negative); Leukocyte Esterase-Dipstick 100 /ul (Negative); Nitrite-Dipstick Negative (Negative); Occult Blood-Urine 10 /ul (Negative); Protein-Dipstick 15 mg/dl (Negative); Specific Gravity, Urine 1.025 (1.002-1.030); Urine Bilirubin Dipstick Negative (Negative); Urine Clarity Clear (Clear); Urine Urobilinogen Normal (Normal)
[2023-12-29 10:56] LABS: International Normalized Ratio 1.1; Prothrombin Time (Protime)PT. 13.7 SECONDS (11.7-14.9)
[2023-12-29 10:57] LABS: Partial Thromboplast Time 35.5 Seconds (24.1-36.2)
[2023-12-29 11:00] VITALS: BP 154/84; PULSE 73; RESP 18; O2SAT 93
[2023-12-29 11:09] LABS: ALB/GLOB Ratio 0.5 RATIO (0.9-2.4); AST(SGOT) 44 U/L (15-37); Alanine Aminotransfer ALT/SGPT 31 U/L (13-56); Albumin, Serum 2.5 g/dL (3.2-5.0); Alkaline Phosphatase 182 U/L (45-117); Anion Gap 4 (5-15); BUN 9 mg/dL (7-18); Calcium,Total 9.3 mg/dL (8.5-10.1); Chloride 105 mmol/L (98-107); EST Glomerular Filtration Rate 59 mL/min (>60); Est Glom Filt Rate - Afr Amer 71 mL/min (>60); Estimated Creatinine Clearance 64.33 ml/min; Globulin 4.8 g/dL (2.2-4.2); Glucose 103 mg/dL (74-106); Lipase 11 U/L (13-75); Potassium 3.8 mmol/L (3.5-5.1); Protein, Total 7.3 g/dL (6.4-8.2); Sodium Level 140 mmol/L (136-145)
[2023-12-29 11:13] LABS: White Blood Cells 0-5 SEEN /hpf (0-5)
[2023-12-29 13:00] VITALS: BP 160/91; PULSE 81; RESP 20; O2SAT 93
--- NOTE | 2023-12-29 14:49 | ED.RN ---
Pt family angry with long ER wait times, threatening to leave and go to [facility]. RN tried to explain reason for wait time, pt family still angry. Dr. Aguilera notified.
--- NOTE | 2023-12-29 15:08 | ED.RN ---
Report given to [facility].
== END 2023-12-29 15:14 | disposition skilled nursing facility (03) ==
PROVIDERS: Emergency Provider Emergency Medicine; PCP Internal Medicine; Visit Provider Emergency Medicine
DX: R10.11 Right upper quadrant pain (principal); J44.9 Chronic obstructive pulmonary disease, unspecified; G89.18 Other acute postprocedural pain; I25.10 Atherosclerotic heart disease of native coronary artery without angina pectoris; Z86.718 Personal history of other venous thrombosis and embolism
CPT/HCPCS: 36592; 74177; 80053; 81001; 83690; 85025; 85610; 85730; 96374; 96375; 96376; 99282; Q9967; A4216; J2405

== ENCOUNTER → 2024-01-11 | Outpatient (REF) | payer MEDICARE, MEDICAID, SELFPAY ==
[2024-01-11 09:19] LABS: Absolute Lymphocyte Count 1.98 X10^3/uL (0.83-4.51); Absolute Neutrophil Count 2.3 X10^3/uL (2.0-7.7); Basophil# 0.05 X10^3/uL; Basophil% 0.9 % (0-1); Eosinophil# 0.43 X10^3/uL; Eosinophils% 8.1 % (0-5); Hematocrit 33.8 % (37-47); Hemoglobin 10.3 g/dL (12.0-15.0); Lymphocyte # 1.98 X10^3/ul (0.83-4.51); Lymphocyte % 37.4 % (19-41); Mean Corp Hgb Conc 30.5 g/dL (32-36); Mean Corpuscular Hgb 29.9 pg (27.0-32.0); Mean Platelet Vol. 9.6 fl (6.2-12.0); Monocyte# 0.54 X10^3/uL; Monocyte% 10.2 % (0-10); NRBC Flagged by Analyzer 0 % (0-5); Neutrophil # 2.29 X10^3/uL (2.7-7.7); Neutrophil % 43.2 % (47-70); Platelet Count 212 K/mm3 (150-450); RBC Distribution Width CV 13.6 % (11.6-14.6); RBC Distribution Width SD 49.1 fl (35.1-43.9); Red Blood Count 3.45 M/mm3 (4.2-5.4); White Blood Count 5.3 K/mm3 (4.4-11.0)
[2024-01-11 10:08] LABS: Anion Gap 2 (5-15); BUN 14 mg/dL (7-18); BUN/Creat Ratio 14.6 RATIO (10-20); Calcium,Total 9.6 mg/dL (8.5-10.1); Chloride 105 mmol/L (98-107); Creatinine, Serum 0.96 mg/dL (0.55-1.02); EST Glomerular Filtration Rate 62 mL/min (>60); Est Glom Filt Rate - Afr Amer 75 mL/min (>60); Glucose 122 mg/dL (74-106); Potassium 3.8 mmol/L (3.5-5.1); Sodium Level 141 mmol/L (136-145)
== END ==
LOC: OLS.SW 05:00
PROVIDERS: PCP Internal Medicine; Visit Provider Internal Medicine
DX: I25.10 Atherosclerotic heart disease of native coronary artery without angina pectoris (principal); J96.21 Acute and chronic respiratory failure with hypoxia; J44.9 Chronic obstructive pulmonary disease, unspecified; E78.5 Hyperlipidemia, unspecified
CPT/HCPCS: 36415; 80048; 85025; 86140

== ENCOUNTER → 2024-01-18 | Outpatient (REF) | payer MEDICARE, MEDICAID, SELFPAY ==
[2024-01-18 10:00] LABS: Hematocrit 34.9 % (37-47); Hemoglobin 10.7 g/dL (12.0-15.0); Mean Corp Hgb Conc 30.7 g/dL (32-36); Mean Corpuscular Hgb 29.8 pg (27.0-32.0); Mean Corpuscular Volume 97.2 fL (81-99); Mean Platelet Vol. 9.5 fl (6.2-12.0); Platelet Count 221 K/mm3 (150-450); RBC Distribution Width CV 13.6 % (11.6-14.6); RBC Distribution Width SD 48.3 fl (35.1-43.9); Red Blood Count 3.59 M/mm3 (4.2-5.4); White Blood Count 4.4 K/mm3 (4.4-11.0)
[2024-01-18 10:18] LABS: Anion Gap 4 (5-15); BUN 17 mg/dL (7-18); BUN/Creat Ratio 17.8 RATIO (10-20); Calcium,Total 9.1 mg/dL (8.5-10.1); Chloride 108 mmol/L (98-107); Creatinine, Serum 0.96 mg/dL (0.55-1.02); EST Glomerular Filtration Rate 62 mL/min (>60); Est Glom Filt Rate - Afr Amer 75 mL/min (>60); Glucose 94 mg/dL (74-106); Potassium 3.6 mmol/L (3.5-5.1); Sodium Level 143 mmol/L (136-145)
== END ==
LOC: OLS.SW 05:00
PROVIDERS: PCP Internal Medicine; Visit Provider Internal Medicine
DX: I10 Essential (primary) hypertension (principal); J44.9 Chronic obstructive pulmonary disease, unspecified; J96.21 Acute and chronic respiratory failure with hypoxia
CPT/HCPCS: 36415; 80048; 85027

== ENCOUNTER → 2024-03-14 05:00 | Outpatient (REF) | payer MEDICARE, MEDICAID, SELFPAY ==
[2024-03-14 10:17] LABS: Troponin-I HS 14 pg/mL (3.0-54.0)
== END ==
LOC: OLS.SW 05:00
PROVIDERS: PCP Internal Medicine; Visit Provider Internal Medicine
DX: R07.89 Other chest pain (principal)
CPT/HCPCS: 36415; 84484

== ENCOUNTER → 2024-05-10 05:00 | Outpatient (REF) | payer MEDICARE, MEDICAID, SELFPAY ==
[2024-05-10 09:40] LABS: Absolute Lymphocyte Count 2.31 X10^3/uL (0.83-4.51); Absolute Neutrophil Count 1.6 X10^3/uL (2.0-7.7); Basophil# 0.04 X10^3/uL; Basophil% 0.9 % (0-1); Eosinophil# 0.29 X10^3/uL; Eosinophils% 6.3 % (0-5); Hematocrit 37.5 % (37-47); Hemoglobin 11.7 g/dL (12.0-15.0); Lymphocyte # 2.31 X10^3/ul (0.83-4.51); Lymphocyte % 49.8 % (19-41); Mean Corp Hgb Conc 31.2 g/dL (32-36); Mean Corpuscular Hgb 29.5 pg (27.0-32.0); Mean Corpuscular Volume 94.5 fL (81-99); Mean Platelet Vol. 9.6 fl (6.2-12.0); Monocyte# 0.37 X10^3/uL; NRBC Flagged by Analyzer 0 % (0-5); Neutrophil # 1.62 X10^3/uL (2.7-7.7); Neutrophil % 34.8 % (47-70); Platelet Count 183 K/mm3 (150-450); RBC Distribution Width SD 45.1 fl (35.1-43.9); Red Blood Count 3.97 M/mm3 (4.2-5.4); White Blood Count 4.6 K/mm3 (4.4-11.0)
[2024-05-10 10:34] LABS: ALB/GLOB Ratio 0.8 RATIO (0.9-2.4); AST(SGOT) 11 U/L (15-37); Alanine Aminotransfer ALT/SGPT 10 U/L (13-56); Albumin, Serum 2.6 g/dL (3.2-5.0); Alkaline Phosphatase 135 U/L (45-117); Amylase 28 U/L (25-115); Anion Gap 2 (5-15); BUN 12 mg/dL (7-18); Calcium,Total 9.4 mg/dL (8.5-10.1); Chloride 106 mmol/L (98-107); Creatinine, Serum 0.86 mg/dL (0.55-1.02); EST Glomerular Filtration Rate 70 mL/min (>60); Est Glom Filt Rate - Afr Amer 85 mL/min (>60); Globulin 3.2 g/dL (2.2-4.2); Glucose 93 mg/dL (74-106); Lipase 14 U/L (13-75); Potassium 3.8 mmol/L (3.5-5.1); Protein, Total 5.8 g/dL (6.4-8.2); Sodium Level 142 mmol/L (136-145)
== END ==
LOC: OLS.SW 05:00
PROVIDERS: PCP Internal Medicine; Visit Provider Internal Medicine
DX: I50.9 Heart failure, unspecified (principal); J44.9 Chronic obstructive pulmonary disease, unspecified
CPT/HCPCS: 36415; 80053; 82150; 83690; 85025

== ENCOUNTER 2024-07-07 15:15 | Emergency (ER) | payer MEDICARE, MEDICAID, SELFPAY ==
[2024-07-07] VITALS (9 sets, daily range): BP systolic 114–156; BP diastolic 71–88; PULSE 63–70; RESP 13–16; TEMP 36.8; O2SAT 92–98; BMI 33.0
--- NOTE | 2024-07-07 15:52 | EKG12_ITS ---
Test Reason : CHEST PAIN Blood Pressure : */* mmHG Vent. Rate : 65 BPM Atrial Rate : 65 BPM P-R Int : 132 ms QRS Dur : 96 ms QT Int : 406 ms P-R-T Axes : 49 13 61 degrees QTcB Int : 422 ms Normal sinus rhythm Septal infarct , age undetermined Possible Lateral infarct , age undetermined Cannot rule out Inferior infarct , age undetermined Abnormal ECG Confirmed by CECI MARTINEZ, GEO ([id number]), fashion editor MICAH SALMERON ([id number]) on 07/08/2024 8:22:21 AM Referred By: Confirmed By: GEO ORNELAS MD
--- NOTE | 2024-07-07 15:53 | EKG12_ITS ---
Test Reason : CP REPEAT Blood Pressure : */* mmHG Vent. Rate : 66 BPM Atrial Rate : 68 BPM P-R Int : 136 ms QRS Dur : 96 ms QT Int : 392 ms P-R-T Axes : 57 13 61 degrees QTcB Int : 410 ms Sinus rhythm with marked sinus arrhythmia Cannot rule out Inferior infarct , age undetermined Cannot rule out Anteroseptal infarct , age undetermined Abnormal ECG Confirmed by CECI MARTINEZ, GEO ([id number]), order editor MICAH SALMERON ([id number]) on 07/08/2024 8:22:37 AM Referred By: JOLENE Confirmed By: GEO ORNELAS MD
--- NOTE | 2024-07-07 15:53 | RAD_ITS ---
STUDY: X-RAY CHEST REASON FOR EXAM: Female, 68 years old. chest pain TECHNIQUE: PA and lateral COMPARISON: September 29, 2023 FINDINGS: The lungs are clear and expanded. There is no demonstrated pleural abnormality. Normal size heart. Normal mediastinum and dru. Normal visualized pulmonary arteries. Mildly calcified tortuous aortic arch and descending thoracic aorta. Dorsal spine demonstrates degenerative change. There is mild wedging of the superior endplate of one of the midthoracic vertebral bodies without well-defined fracture line likely due to chronic compression. Normal visualized ribs, clavicles, and shoulders. Moderate size hiatal hernia is noted There is no demonstrated abnormality of the visualized soft tissue structures of the upper abdomen. RAD/Chest PA and Lateral IMPRESSION: No acute cardiopulmonary pathology. Moderate size hiatal hernia. Probable chronic compression deformity of the mid thoracic spine however if patient is symptomatic CT or MRI would be useful for more definitive evaluation Electronically Signed: Chucky Sampson MD at 18:07 EDT ,
--- NOTE | 2024-07-07 15:55 | ED.VIS.CHEST ---
HPI History of Present Illness Chief Complaint: Chest Pain Informant: patient Narrative Narrative: [facility] persistent chest pain since 3 AM. Started in her arm went in her chest around to her back. States heaviness. Recent cough for 3 weeks and subsiding. No fever or chills. She had heart cath in the past with no intervention. She is on Plavix. She took a baby aspirin earlier today. COPD history. History of popliteal artery occlusion the right with surgical intervention. Prior Similar Symptoms: No Recent Illness/Hospitalization: No CVD Risk Factors: Positive for Hypertension, Hypercholesterolemia and Smoking PE Risk Factors: Negative for Recent Travel/Surgery, Recent Immobilization or OCP + Smoking + >/=35 PFSH PFSH Medical History Anxiety and depression Arthritis Atherosclerotic heart disease of [place] coronary artery without angina pectoris Back pain Bullous emphysema Calculus of left kidney Cardiology follow-up encounter Chest pain Chronic cough COPD (chronic obstructive pulmonary disease) COPD with asthma Depression Difficulty chewing DVT (deep venous thrombosis) Easy bruising Elevated troponin Esophagitis, unspecified without bleeding Essential hypertension Excessive bleeding Gastric reflux GERD (gastroesophageal reflux disease) High cholesterol History of CHF (congestive heart failure) History of echocardiogram History of edema History of irregular heartbeat History of non-ST elevation myocardial infarction (NSTEMI) (09/01/21) History of pain when walking History of renal disease History of stress test History of ulceration Hoarseness Hyperlipidemia Injury of back Ischemic cardiomyopathy Kidney stones Leg cramps Myocardial infarct Obesity (BMI 30.0-34.9) Old anterior wall myocardial infarction Opiate dependence EVELYN (obstructive sleep apnea) Osteoporosis Other chronic pain Personal history of transient ischemic attack (TIA), and cerebral infarction without residual deficits Post-menopausal Shortness of breath on exertion Smoker Sustained SVT TIA (transient ischemic attack) Tobacco abuse Unspecified combined 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 Wears glasses Home Medications ?Medication ?Instructions ?Recorded ?Last Taken ?Type clopidogrel 75 mg tablet (Plavix) 75 mg PO DAILY 30 days #30 tabs 01/04/23 09/25/23 Rx lisinopril 2.5 mg tablet 2.5 mg PO DAILY 30 days #30 tabs 01/04/23 06/24/23 Rx ondansetron 4 mg disintegrating 4 mg PO Q8H PRN PRN Nausea #12 tabs 01/13/23 Unknown Rx tablet albuterol sulfate 90 mcg/actuation 2 puff inhalation Q6H PRN 02/17/23 Unknown Rx aerosol inhaler shortness of breath or wheezing #8.5 grams budesonide-formoterol HFA 160 1 puff inhalation BID #10.2 grams 02/17/23 Unknown Rx mcg-4.5 mcg/actuation aerosol inhaler (Symbicort) inhalational spacing device #1 ea 02/17/23 Unknown Rx (Aerochamber MV spacer) tiotropium bromide 2.5 2 puff inhalation DAILY #4 grams 02/17/23 Unknown Rx mcg/actuation mist for inhalation (Spiriva Respimat) pantoprazole 40 mg tablet,delayed 40 mg PO Q12H #60 tabs 06/24/23 09/28/23 Rx release lorazepam 1 mg tablet (Ativan) 1 mg PO BID PRN anxiety 07/16/23 09/28/23 History amiodarone 200 mg tablet 200 mg PO DAILY 07/22/23 Unknown History carvedilol 6.25 mg tablet 6.25 mg PO Q12H 07/29/23 09/28/23 History furosemide 20 mg tablet 20 mg PO Q12H 07/29/23 Unknown History gabapentin 400 mg capsule 400 mg PO Q8H 07/29/23 09/28/23 History nitroglycerin 0.4 mg sublingual 0.4 mg buccal Q5M PRN chest pain 07/29/23 Unknown History tablet oxycodone myristate 9 mg capsule 13.5 mg PO Q12H 07/29/23 Unknown History sprinkle extended release 12 hr(DON'T CRUSH) (Xtampza ER) sucralfate 1 gram tablet 1 g PO Q8H 07/29/23 Unknown History albuterol sulfate 2.5 mg/3 mL 2.5 mg continuous nebulization Q6H 09/05/23 Unknown History (0.083 %) solution for nebulization PRN shortness of breath or wheezing melatonin 3 mg capsule 3 mg PO QHS 09/05/23 Unknown History cyclobenzaprine 5 mg tablet 5 mg PO TID PRN muscle spasm #15 11/30/23 Unknown Rx tabs carvedilol 12.5 mg tablet (Coreg) 12.5 mg PO BID #60 tabs 07/07/24 Unknown Rx Allergy/AdvReac Type Severity Reaction Status Date / Time No Known Allergies Allergy Verified 07/07/24 15:17 Family History Mother Hypertension CAD (coronary artery disease) CVA (cerebral vascular accident) Myocardial infarction Grandmother Myocardial infarction Surgical History History of cardiac catheterization History of hysterectomy History of left heart catheterization (01/20/22) History of total hysterectomy Hx of appendectomy Hx of esophagogastroduodenoscopy Social History household members: none Smoking Status: Former smoker alcohol intake: never substance use type: does not use ROS ROS ED Constitutional Constitutional ED: Denies chills, fever(s) or sweats Eyes Eyes: Denies change in vision ENT ENT ED: Denies dysphagia or sore throat Cardiovascular Cardiovascular: Reports chest pain; Denies leg edema, palpitations or racing heartbeat Respiratory/Chest Respiratory/Chest: Reports cough; Denies dyspnea or dyspnea on exertion Gastrointestinal Gastrointestinal: Denies abdominal pain, diarrhea, nausea or vomiting Genitourinary Genitourinary ED: Denies dysuria, hematuria or urinary frequency Musculoskeletal Musculoskeletal: Reports extremity pain; Denies back pain or neck pain Integumentary Denies rash or wounds Neurologic Neurologic: Denies headache(s), paresthesias or weakness EXAM Physical Exam Const Vital Signs: 07/07/24 15:15 07/07/24 15:19 07/07/24 16:06 Temperature 98.3 F Temperature Source Oral Pulse Rate 70 Respiratory Rate 14 Respiratory Effort Normal Non-Labored Blood Pressure 156/88 H Blood Pressure Mean 110 Pulse Ox 92 95 Oxygen Delivery Method Room Air Room Air 07/07/24 16:15 07/07/24 17:00 07/07/24 17:53 Temperature Temperature Source Pulse Rate 67 63 64 Respiratory Rate 15 14 Respiratory Effort Blood Pressure 114/71 154/78 H 138/80 H Blood Pressure Mean 85 103 Pulse Ox 93 94 Oxygen Delivery Method Room Air Room Air 07/07/24 17:59 07/07/24 18:00 07/07/24 19:00 Temperature Temperature Source Pulse Rate 69 69 66 Respiratory Rate 16 13 Respiratory Effort Blood Pressure 133/84 H 133/84 H 149/86 H Blood Pressure Mean 100 107 Pulse Ox 96 98 Oxygen Delivery Method Room Air Room Air 07/07/24 20:00 Temperature Temperature Source Pulse Rate 64 Respiratory Rate 16 Respiratory Effort Blood Pressure 154/88 H Blood Pressure Mean 110 Pulse Ox 96 Oxygen Delivery Method Room Air Positive well nourished and well developed General Appearance ED: well developed and NAD HEENT Reports moist mucous membranes normocephalic and atraumatic Eyes EOMs intact bilaterally and conjunctivae normal General Eye ED: Yes normal appearance of both eyes Neck no lymphadenopathy and supple General: Negative for tenderness Chest Wall Chest: Negative for tenderness Resp normal respiratory effort and normal air movement Effort and Inspection: symmetric chest movement; Negative for respiratory distress Cardio regular rate, regular rhythm and no murmurs Peripheral Pulses: pulses 2+ throughout GI normal to inspection, nondistended, normoactive bowel sounds and non-tender Palpation: Negative for guarding or rebound tenderness present Back/Spine no CVA tenderness and no thoracic nor lumbar tenderness Extremity normal to inspection Extremity Narrative: Soft compartments of upper extremities. General Extremety ED: Negative for edema or tenderness General Extremity: Negative for edema Neuro oriented x3 and no sensory deficits noted Sensorium / Orientation: awake and alert Skin no rashes or lesions noted and no wounds Heart Score History: Moderately Suspicious ECG: Nonspecific Repolarization Age: >/= 65 years Risk Factors: >/= 3 Risk Factors or History of CAD Troponin: </= Normal Limit Score: 6 MDM MDM MDM Narrative Medical decision making narrative: Interventions / MDM: Differential diagnosis: Chest pain, history of coronary disease Diagnosis considered but do not suspect: N/A My EKG interpretation: Sinus rate of 65, no ST changes. T wave version V1 V2. Similar findings September 2023. EKG #2 at 1802. Unchanged, PAC noted. Imaging independently reviewed and interpreted by myself: N/A External documents reviewed: Cardiac catheterization January 2022: 50% distal LAD, 25% OM1 EF of 25%. Echocardiogram July 2023: EF 30 to 35%. Test considered but not ordered:N/A ED course: Patient presents chest heaviness EKG chronic findings. Took aspirin and Plavix at home. Cardiac workup initiated. Will add morphine for symptom control. 174: Initial troponin negative at 18. She states symptoms were initially improved and return. With heaviness. Known coronary disease. Will repeat EKG will try nitroglycerin. 1899: Patient chest and arm symptoms resolved after 1 nitro. Reported pain 3 however reports secondary to her chronic back pain. Delta troponin down to 15. Blood pressure systolic 130s on the monitor. Known coronary disease chest heaviness received nitro discussed with cardiology for plan of care. 1957: Discussed with nuclear power reactor operator Dr. Curtis, currently symptom-free known coronary disease with blockages. Cardiomyopathy. Reviewed her medication she is on Coreg 6.25 mg twice daily. He recommends increasing her Coreg to 12.5 twice daily and following up with the office for outpatient stress test. Return precaution discussed. Re-evaluation: stable Disposition discussed with patient/family/significant other: Patient Case discussed with consulting clinician: Cardiology This note was generated with [employer] dictation software. It may contain incorrect words, spelling, and punctuation that were not noted in checking the note before signing. Lab Data Attestation: I reviewed the patient's lab results. Labs: Laboratory Results - last 24 hr 07/07/24 07/07/24 15:59 18:25 WBC 6.5 RBC 4.42 Hgb 13.4 Hct 42.3 MCV 95.7 MCH 30.3 MCHC 31.7 L RDW Std Deviation 48.8 H RDW Coeff of Sariah 14.0 Plt Count 254 MPV 10.0 Immature Gran % (Auto) 0.300 Neut % (Auto) 51.5 Lymph % (Auto) 36.8 Miller % (Auto) 6.9 Eos % (Auto) 3.7 Baso % (Auto) 0.8 Absolute Neuts (auto) 3.4 Absolute Lymphs (auto) 2.39 Nucleated RBC % 0 Sodium 141 Potassium 3.6 Chloride 106 Carbon Dioxide 32.0 Anion Gap 4 L BUN 13 Creatinine 0.90 Estim Creat Clear Calc 67.20 Est GFR (MDRD) Af Amer 81 Est GFR (MDRD) Non-Af 67 BUN/Creatinine Ratio 14.5 Glucose 102 Calcium 9.7 Troponin I High Sens 18 15 Radiography Diagnostic Testing: Clinical Impression(s) from Imaging Studies Chest X-Ray 07/07/24 15:53 IMPRESSION: No acute cardiopulmonary pathology. Moderate size hiatal hernia. Probable chronic compression deformity of the mid thoracic spine however if patient is symptomatic CT or MRI would be useful for more definitive evaluation Electronically Signed: Chucky Sampson MD at 18:07 EDT , Discharge Plan Triage Chief Complaint: Chest Pain ED Provider: Gonsalo Melendez Dx/Rx/DC Orders Clinical Impression: Ischemic cardiomyopathy, Chest pain, CAD (coronary artery disease) Instructions: CAD, ED Chest Pain, Uncertain Cause Prescriptions: New carvedilol [Coreg] 12.5 mg tablet 12.5 mg PO BID Qty: 60 0RF Rx Instructions: must administer with a meal/food No Action budesonide-formoterol [Symbicort] 160-4.5 mcg/actuation HFA aerosol inhaler 1 puff inhalation BID Qty: 10.2 11RF Spiriva Respimat 2.5 mcg/actuation mist 2 puff inhalation DAILY Qty: 4 11RF albuterol sulfate 90 mcg/actuation HFA aerosol inhaler 2 puff inhalation Q6H MDD 10 puffs PRN (Reason: shortness of breath or wheezing) Qty: 8.5 6RF Rx Instructions: This inhaler must be used with a spacer device. (DME) Aerochamber MV Spacer See Rx Instructions .ROUTE .MEDSUPPLY Qty: 1 0RF Rx Instructions: As directed lorazepam [Ativan] 1 mg tablet 1 mg PO BID PRN (Reason: anxiety) clopidogrel [Plavix] 75 mg tablet 75 mg PO DAILY 30 Days Qty: 30 0RF lisinopril 2.5 mg tablet 2.5 mg PO DAILY 30 Days Qty: 30 0RF ondansetron 4 mg tablet,disintegrating 4 mg PO Q8H PRN PRN (Reason: Nausea) Qty: 12 0RF pantoprazole 40 mg tablet,delayed release (DR/EC) 40 mg PO Q12H Qty: 60 3RF albuterol sulfate 2.5 mg /3 mL (0.083 %) solution for nebulization 2.5 mg continuous nebulization Q6H PRN (Reason: shortness of breath or wheezing) melatonin 3 mg capsule 3 mg PO QHS amiodarone 200 mg tablet 200 mg PO DAILY gabapentin 400 mg capsule 400 mg PO Q8H carvedilol 6.25 mg tablet 6.25 mg PO Q12H furosemide 20 mg tablet 20 mg PO Q12H nitroglycerin 0.4 mg tablet, sublingual 0.4 mg buccal Q5M PRN (Reason: chest pain) Xtampza ER 9 mg cap,sprinkl,ER12hr(DONT CRUSH) 13.5 mg PO Q12H sucralfate 1 gram tablet 1 g PO Q8H cyclobenzaprine 5 mg tablet 5 mg PO TID PRN (Reason: muscle spasm) Qty: 15 0RF Primary Care Provider: Sandy Barbosa Referrals: Sandy Barbosa MD [Primary Care Provider] - Marsha Alonso NP, PROJECT SUPERINTENDENT-C [Non-Staff -Ordering Privileges] - 2 Days Activity Restrictions/Additional Instructions: Cardiac workup negative. History of coronary disease. Discussed with Dr. Curtis increase your carvedilol to 12.5 mg twice a day. You may take 2 tabs of 6.25 or take the new prescription as written. Call cardiology office for outpatient follow-up and further testing. Symptoms recurs and worsens, return to ED for reevaluation. Print Language: Hebrew Disposition Disposition: Home, Self Care Discharge Date/Time: 07/07/24 20:20
[2024-07-07] MEDS: Ondansetron 4 MG/2 ML Vial IV (16:00)
[2024-07-07] MEDS: Morphine 4 MG/ML Syringe IV (16:01)
[2024-07-07 16:21] LABS: Absolute Lymphocyte Count 2.39 X10^3/uL (0.83-4.51); Absolute Neutrophil Count 3.4 X10^3/uL (2.0-7.7); Basophil# 0.05 X10^3/uL; Basophil% 0.8 % (0-1); Eosinophil# 0.24 X10^3/uL; Eosinophils% 3.7 % (0-5); Hematocrit 42.3 % (37-47); Hemoglobin 13.4 g/dL (12.0-15.0); Lymphocyte # 2.39 X10^3/ul (0.83-4.51); Lymphocyte % 36.8 % (19-41); Mean Corp Hgb Conc 31.7 g/dL (32-36); Mean Corpuscular Hgb 30.3 pg (27.0-32.0); Mean Corpuscular Volume 95.7 fL (81-99); Monocyte# 0.45 X10^3/uL; Monocyte% 6.9 % (0-10); NRBC Flagged by Analyzer 0 % (0-5); Neutrophil # 3.35 X10^3/uL (2.7-7.7); Neutrophil % 51.5 % (47-70); Platelet Count 254 K/mm3 (150-450); RBC Distribution Width SD 48.8 fl (35.1-43.9); Red Blood Count 4.42 M/mm3 (4.2-5.4); White Blood Count 6.5 K/mm3 (4.4-11.0)
[2024-07-07 16:22] LABS: Anion Gap 4 (5-15); BUN 13 mg/dL (7-18); BUN/Creat Ratio 14.5 RATIO (10-20); Calcium,Total 9.7 mg/dL (8.5-10.1); Chloride 106 mmol/L (98-107); EST Glomerular Filtration Rate 67 mL/min (>60); Est Glom Filt Rate - Afr Amer 81 mL/min (>60); Glucose 102 mg/dL (74-106); Potassium 3.6 mmol/L (3.5-5.1); Sodium Level 141 mmol/L (136-145); Troponin-I HS (w/2H Reflex) 18 pg/mL (3.0-54.0)
[2024-07-07] MEDS: Nitroglycerin SL (ED/IMG/CATH) 0.4 MG TABLET SL ×2 (17:53→17:59)
[2024-07-07 17:59] LABS: Reflex Troponin-HS? (from REC) Y
[2024-07-07 18:50] LABS: Troponin-I HS 15 pg/mL (3.0-54.0)
== END 2024-07-07 20:20 | disposition home or self-care (01) ==
PROVIDERS: Emergency Provider Emergency Medicine; PCP Internal Medicine; Visit Provider Emergency Medicine
DX: I25.5 Ischemic cardiomyopathy (principal); I11.0 Hypertensive heart disease with heart failure; I50.42 Chronic combined systolic (congestive) and diastolic (congestive) heart failure; I25.10 Atherosclerotic heart disease of native coronary artery without angina pectoris; E78.00 Pure hypercholesterolemia, unspecified; I25.2 Old myocardial infarction; G47.33 Obstructive sleep apnea (adult) (pediatric); Z79.02 Long term (current) use of antithrombotics/antiplatelets; Z79.899 Other long term (current) drug therapy; Z86.718 Personal history of other venous thrombosis and embolism; Z86.73 Personal history of transient ischemic attack (TIA), and cerebral infarction without residual deficits; Z87.891 Personal history of nicotine dependence
CPT/HCPCS: 71046; 80048; 84484; 85025; 93005; 96374; 96375; 99284; A4216; J2405

== ENCOUNTER 2024-08-21 21:00 | Emergency (ER) | payer MEDICARE, MEDICAID, SELFPAY ==
[2024-08-21 21:01] VITALS: BP 155/98; PULSE 89; RESP 16; TEMP 36.6; O2SAT 96; BMI 31.8
--- NOTE | 2024-08-21 21:19 | EKG12_ITS ---
Test Reason : DYSRHYTHMIA Blood Pressure : */* mmHG Vent. Rate : 82 BPM Atrial Rate : 82 BPM P-R Int : 132 ms QRS Dur : 98 ms QT Int : 358 ms P-R-T Axes : 52 0 78 degrees QTcB Int : 418 ms Sinus rhythm with Premature atrial complexes Possible Inferior infarct , age undetermined Cannot rule out Anteroseptal infarct , age undetermined Abnormal ECG Confirmed by CECI MARTINEZ, GEO ([id number]), advertising editor MICAH SALMERON ([id number]) on 08/24/2024 6:28:39 AM Referred By: Confirmed By: GEO ORNELAS MD
--- NOTE | 2024-08-21 21:20 | RAD_ITS ---
STUDY: X-RAY - RIGHT SHOULDER REASON FOR EXAM: Female, 68 years old. pain TECHNIQUE: 4 view(s) of the shoulder. COMPARISON: None. FINDINGS: Mildly narrowed glenohumeral articulation. Normal acromioclavicular joint. Normal acromion. Normal humeral head and visualized proximal humerus. The soft tissue structures are unremarkable. Normal visualized pulmonary apex. RAD/Shoulder min 2 Views IMPRESSION: Mild degenerative change. No acute fracture or dislocation Electronically Signed: Chucky Sampson MD at 22:25 EST ,
--- NOTE | 2024-08-21 21:20 | RAD_ITS ---
STUDY: X-RAY CHEST REASON FOR EXAM: Female, 68 years old. cough TECHNIQUE: PA and lateral COMPARISON: None. FINDINGS: There is mild left basilar atelectasis in association with moderate-sized intrathoracic hernia with air-fluid level. There is no demonstrated pleural abnormality. Normal size heart. Normal mediastinum and dru. Normal visualized pulmonary arteries. Mildly calcified aortic arch and descending thoracic aorta. Dorsal spine demonstrates degenerative changes and mild multilevel compression deformities. Normal visualized ribs, clavicles, and shoulders. There is no demonstrated abnormality of the visualized soft tissue structures of the upper abdomen. No significant change since prior exam RAD/Chest PA and Lateral IMPRESSION: Moderate size hiatal hernia with associated mild left basilar atelectasis Electronically Signed: Chucky Sampson MD at 22:24 EST ,
--- NOTE | 2024-08-21 21:21 | EDS_ITS ---
HPI History of Present Illness Chief Complaint: Upper Extremity Injury Informant: patient Narrative Narrative: 68-year-old female with a lot of chronic symptoms states yesterday while she was standing, not exerting herself, she started having pain in her right shoulder and at 1 point it shot some pain into her right jaw. That is no longer there but the pain in her shoulder has not gone away. She states it feels like there is something in there that is wrong, pointing to her right shoulder. She denies any chest discomfort with this. She has chronic abdominal pain, that is no different. She has a cough. No fevers or chills. She has chronic dyspnea that is no necessarily different. She denies injuring her shoulder doing any heavy lifting or anything recently that could explain this. [facility] Medical History Wears glasses Post-menopausal Arthritis History of renal disease High cholesterol DVT (deep venous thrombosis) Easy bruising Excessive bleeding Back pain Injury of back History of ulceration Difficulty chewing Gastric reflux Shortness of breath on exertion Hoarseness Chronic cough Leg cramps History of pain when walking History of edema History of echocardiogram History of stress test Cardiology follow-up encounter History of CHF (congestive heart failure) History of irregular heartbeat Chest pain Bullous emphysema COPD with asthma Esophagitis, unspecified without bleeding Unspecified combined 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 Other chronic pain Elevated troponin Sustained SVT Depression Osteoporosis Kidney stones Smoker Myocardial infarct History of non-ST elevation myocardial infarction (NSTEMI) (09/01/21) Essential hypertension Old anterior wall myocardial infarction Ischemic cardiomyopathy Opiate dependence Anxiety and depression TIA (transient ischemic attack) Obesity (BMI 30.0-34.9) EVELYN (obstructive sleep apnea) Personal history of transient ischemic attack (TIA), and cerebral infarction without residual deficits COPD (chronic obstructive pulmonary disease) Calculus of left kidney GERD (gastroesophageal reflux disease) Hyperlipidemia Atherosclerotic heart disease of [place] coronary artery without angina pectoris Tobacco abuse Home Medications ?Medication ?Instructions ?Recorded ?Last Taken ?Type clopidogrel 75 mg tablet (Plavix) 75 mg PO DAILY 30 days #30 tabs 01/04/23 09/25/23 Rx lisinopril 2.5 mg tablet 2.5 mg PO DAILY 30 days #30 tabs 01/04/23 06/24/23 Rx ondansetron 4 mg disintegrating 4 mg PO Q8H PRN PRN Nausea #12 tabs 01/13/23 Unknown Rx tablet albuterol sulfate 90 mcg/actuation 2 puff inhalation Q6H PRN 02/17/23 Unknown Rx aerosol inhaler shortness of breath or wheezing #8.5 grams budesonide-formoterol HFA 160 1 puff inhalation BID #10.2 grams 02/17/23 Unknown Rx mcg-4.5 mcg/actuation aerosol inhaler (Symbicort) inhalational spacing device #1 ea 02/17/23 Unknown Rx (Aerochamber MV spacer) tiotropium bromide 2.5 2 puff inhalation DAILY #4 grams 02/17/23 Unknown Rx mcg/actuation mist for inhalation (Spiriva Respimat) pantoprazole 40 mg tablet,delayed 40 mg PO Q12H #60 tabs 06/24/23 09/28/23 Rx release lorazepam 1 mg tablet (Ativan) 1 mg PO BID PRN anxiety 07/16/23 09/28/23 History amiodarone 200 mg tablet 200 mg PO DAILY 07/22/23 Unknown History carvedilol 6.25 mg tablet 6.25 mg PO Q12H 07/29/23 09/28/23 History furosemide 20 mg tablet 20 mg PO Q12H 07/29/23 Unknown History gabapentin 400 mg capsule 400 mg PO Q8H 07/29/23 09/28/23 History nitroglycerin 0.4 mg sublingual 0.4 mg buccal Q5M PRN chest pain 07/29/23 Unknown History tablet oxycodone myristate 9 mg capsule 13.5 mg PO Q12H 07/29/23 Unknown History sprinkle extended release 12 hr(DON'T CRUSH) (Xtampza ER) sucralfate 1 gram tablet 1 g PO Q8H 07/29/23 Unknown History albuterol sulfate 2.5 mg/3 mL 2.5 mg continuous nebulization Q6H 09/05/23 Unknown History (0.083 %) solution for nebulization PRN shortness of breath or wheezing melatonin 3 mg capsule 3 mg PO QHS 09/05/23 Unknown History cyclobenzaprine 5 mg tablet 5 mg PO TID PRN muscle spasm #15 11/30/23 Unknown Rx tabs carvedilol 12.5 mg tablet (Coreg) 12.5 mg PO BID #60 tabs 07/07/24 Unknown Rx prednisone 20 mg tablet 40 mg (2 x 20 mg) PO DAILY 5 days 08/21/24 Unknown Rx #10 tabs Allergy/AdvReac Type Severity Reaction Status Date / Time No Known Allergies Allergy Verified 08/21/24 21:05 Family History Mother Hypertension CAD (coronary artery disease) CVA (cerebral vascular accident) Myocardial infarction Grandmother Myocardial infarction Surgical History History of cardiac catheterization History of hysterectomy History of left heart catheterization (01/20/22) History of total hysterectomy Hx of appendectomy Hx of esophagogastroduodenoscopy Social History household members: none Smoking Status: Current some day smoker tobacco type: cigarettes alcohol intake: never substance use type: does not use ROS ROS ED Constitutional Constitutional ED: Denies chills or fever(s) Eyes Eyes: Denies change in vision or diplopia ENT ENT ED: Denies rhinorrhea or sore throat Cardiovascular Cardiovascular: Denies chest pain or palpitations Respiratory/Chest Respiratory/Chest: Reports cough and dyspnea Gastrointestinal Gastrointestinal: Reports abdominal pain; Denies diarrhea, nausea or vomiting Genitourinary Genitourinary ED: Denies dysuria or hematuria Musculoskeletal Musculoskeletal: Reports as per HPI and extremity pain; Denies neck pain Integumentary Denies abscess or rash Neurologic Neurologic: Denies headache(s), paresthesias or weakness EXAM Physical Exam Const Vital Signs: 08/21/24 21:01 Temperature 98 F Temperature Source Oral Pulse Rate 89 Respiratory Rate 16 Blood Pressure 155/98 H Blood Pressure Mean 117 Pulse Ox 96 Oxygen Delivery Method Room Air Positive well nourished and well developed General Appearance ED: well developed and NAD HEENT Reports moist mucous membranes normocephalic and atraumatic Eyes PERRL and EOMs intact bilaterally Neck full ROM and supple Resp normal respiratory effort and clear to auscultation bilaterally Cardio regular rate, regular rhythm and no murmurs GI non-distended GI Narrative: Mild upper abdominal tenderness diffuse no guarding or rebound Auscultation: normoactive bowel sounds Palpation: soft Back/Spine no CVA tenderness General Back: other FROM Extremity normal to inspection and full ROM Extremity Narrative: Patient has full range of motion of the right shoulder she states that hurts to abduct. She has a positive Speed test and is tender at the biceps tender origin. When abducted and passively externally/internally rotated she does not have significant discomfort. General Extremety ED: Yes tenderness; Negative for edema or pulses abnormal General Extremity: Negative for edema or pulses abnormal Neuro oriented x3, CN's II-XII intact bilaterally and no sensory deficits noted Neuro Narrative: Normal neurovascular exam both upper extremities. Sensorium / Orientation: awake and alert Motor Exam: strength 5/5 throughout Psych mental status grossly normal Skin no rashes or lesions noted and no wounds MDM MDM MDM Narrative Medical decision making narrative: Or differential here includes impingement/bursitis of the shoulder, biceps tendinitis, referred discomfort from acute coronary syndrome, referred discomfort from biliary disease, rotator cuff disease. Obtaining a screening x- ray of the right shoulder, screening chest x-ray given her cough and chronic dyspnea, she has chronic abdominal pain, she is tender, but she is not having symptoms acutely to suggest this is acute cholecystitis. I am screening her with liver enzymes. All of that is normal including her troponin after having discomfort all day so I do not think she needs another emergent measurement. Based on my exam, I think this is consistent with shoulder pain. I did obtain screening x-rays of the right shoulder, 3 views of my interpretation show no acute bony abnormality or a major spur. Two-view chest x-ray on my interpretation shows chronic changes but nothing acute. She is on clopidogrel so I am avoiding NSAIDs, at this time I am going to reassure her, put her on a short course of prednisone, and have her follow-up with orthopedics if the symptoms persist. She is asking for something here for pain. She has oxycodone at home according to her list, give her a dose but not prescribing her any more of that. Lab Data Attestation: I reviewed the patient's lab results. Labs: Laboratory Tests 08/21/24 Range/Units 21:27 WBC 6.4 (4.4-11.0) K/mm3 RBC 4.20 (4.2-5.4) M/mm3 Hgb 12.8 (12.0-15.0) g/dL Hct 40.4 (37-47) % MCV 96.2 (81-99) fL MCH 30.5 (27.0-32.0) pg MCHC 31.7 L (32-36) g/dL RDW Std Deviation 46.5 H (35.1-43.9) fl RDW Coeff of Sariah 13.2 (11.6-14.6) % Plt Count 191 (150-450) K/mm3 MPV 9.1 (6.2-12.0) fl Immature Gran % (Auto) 0.300 (0.0-0.9) % Neut % (Auto) 63.4 (47-70) % Lymph % (Auto) 26.1 (19-41) % Rooks % (Auto) 6.3 (0-10) % Eos % (Auto) 3.3 (0-5) % Baso % (Auto) 0.6 (0-1) % Absolute Neuts (auto) 4.0 (2.0-7.7) X10^3/uL Absolute Lymphs (auto) 1.66 (0.83-4.51) X10^3/uL Nucleated RBC % 0 (0-5) % Sodium 142 (136-145) mmol/L Potassium 3.6 (3.5-5.1) mmol/L Chloride 108 H (98-107) mmol/L Carbon Dioxide 29.0 (21.0-32.0) mmol/L Anion Gap 5 (5-15) BUN 17 (7-18) mg/dL Creatinine 0.83 (0.55-1.02) mg/dL Estim Creat Clear Calc 71.52 ml/min Est GFR (MDRD) Af Amer 88 (>60) mL/min Est GFR (MDRD) Non-Af 73 (>60) mL/min BUN/Creatinine Ratio 20.5 H (10-20) RATIO Glucose 139 H (74-106) mg/dL Calcium 8.6 (8.5-10.1) mg/dL Total Bilirubin 0.50 (0.20-1.00) mg/dL AST 14 L (15-37) U/L ALT 11 L (13-56) U/L Alkaline Phosphatase 128 H (45-117) U/L Troponin I High Sens 20 (3.0-54.0) pg/mL Total Protein 6.6 (6.4-8.2) g/dL Albumin 3.1 L (3.2-5.0) g/dL Globulin 3.5 (2.2-4.2) g/dL Albumin/Globulin Ratio 0.9 (0.9-2.4) RATIO Rhythm Strip Rhythm Strip: Sinus Rhythm Rate: 80 Ectopy: PAC(s) EKG Initial EKG: Attestation: I personally reviewed and interpreted this EKG as follows: Interpretation: Sinus Rhythm and No Acute Injury Pattern Comments: Nml axis & intervals; nml EKG except frequent PACs Prior EKG tracings: available for review Prior: Unchanged Discharge Plan Triage Chief Complaint: Upper Extremity Injury ED Provider: Linus Byers Dx/Rx/DC Orders Clinical Impression: Acute pain of right shoulder, Chronic dyspnea, Chronic abdominal pain Instructions: Biceps Tendonitis Proximal, ED Shoulder Impingement Syndrome Prescriptions: New prednisone 20 mg tablet 40 mg PO DAILY 5 Days Qty: 10 0RF No Action budesonide-formoterol [Symbicort] 160-4.5 mcg/actuation HFA aerosol inhaler 1 puff inhalation BID Qty: 10.2 11RF Spiriva Respimat 2.5 mcg/actuation mist 2 puff inhalation DAILY Qty: 4 11RF albuterol sulfate 90 mcg/actuation HFA aerosol inhaler 2 puff inhalation Q6H MDD 10 puffs PRN (Reason: shortness of breath or wheezing) Qty: 8.5 6RF Rx Instructions: This inhaler must be used with a spacer device. (DME) Aerochamber MV Spacer See Rx Instructions .ROUTE .MEDSUPPLY Qty: 1 0RF Rx Instructions: As directed lorazepam [Ativan] 1 mg tablet 1 mg PO BID PRN (Reason: anxiety) clopidogrel [Plavix] 75 mg tablet 75 mg PO DAILY 30 Days Qty: 30 0RF lisinopril 2.5 mg tablet 2.5 mg PO DAILY 30 Days Qty: 30 0RF ondansetron 4 mg tablet,disintegrating 4 mg PO Q8H PRN PRN (Reason: Nausea) Qty: 12 0RF pantoprazole 40 mg tablet,delayed release (DR/EC) 40 mg PO Q12H Qty: 60 3RF albuterol sulfate 2.5 mg /3 mL (0.083 %) solution for nebulization 2.5 mg continuous nebulization Q6H PRN (Reason: shortness of breath or wheezing) melatonin 3 mg capsule 3 mg PO QHS amiodarone 200 mg tablet 200 mg PO DAILY gabapentin 400 mg capsule 400 mg PO Q8H carvedilol 6.25 mg tablet 6.25 mg PO Q12H furosemide 20 mg tablet 20 mg PO Q12H nitroglycerin 0.4 mg tablet, sublingual 0.4 mg buccal Q5M PRN (Reason: chest pain) Xtampza ER 9 mg cap,sprinkl,ER12hr(DONT CRUSH) 13.5 mg PO Q12H sucralfate 1 gram tablet 1 g PO Q8H cyclobenzaprine 5 mg tablet 5 mg PO TID PRN (Reason: muscle spasm) Qty: 15 0RF carvedilol [Coreg] 12.5 mg tablet 12.5 mg PO BID Qty: 60 0RF Rx Instructions: must administer with a meal/food Primary Care Provider: Sandy Barbosa Referrals: Sandy Barbosa MD [Primary Care Provider] - Jorgito Awan DO [Med Staff - Active Staff] - 1 Week if not improving Print Language: [place] Disposition Disposition: Home, Self Care
[2024-08-21 21:36] LABS: Absolute Lymphocyte Count 1.66 X10^3/uL (0.83-4.51); Basophil# 0.04 X10^3/uL; Basophil% 0.6 % (0-1); Eosinophil# 0.21 X10^3/uL; Eosinophils% 3.3 % (0-5); Hematocrit 40.4 % (37-47); Hemoglobin 12.8 g/dL (12.0-15.0); Lymphocyte # 1.66 X10^3/ul (0.83-4.51); Lymphocyte % 26.1 % (19-41); Mean Corp Hgb Conc 31.7 g/dL (32-36); Mean Corpuscular Hgb 30.5 pg (27.0-32.0); Mean Corpuscular Volume 96.2 fL (81-99); Mean Platelet Vol. 9.1 fl (6.2-12.0); Monocyte% 6.3 % (0-10); NRBC Flagged by Analyzer 0 % (0-5); Neutrophil # 4.02 X10^3/uL (2.7-7.7); Neutrophil % 63.4 % (47-70); Platelet Count 191 K/mm3 (150-450); RBC Distribution Width CV 13.2 % (11.6-14.6); RBC Distribution Width SD 46.5 fl (35.1-43.9); White Blood Count 6.4 K/mm3 (4.4-11.0)
[2024-08-21 21:54] LABS: ALB/GLOB Ratio 0.9 RATIO (0.9-2.4); AST(SGOT) 14 U/L (15-37); Alanine Aminotransfer ALT/SGPT 11 U/L (13-56); Albumin, Serum 3.1 g/dL (3.2-5.0); Alkaline Phosphatase 128 U/L (45-117); Anion Gap 5 (5-15); BUN 17 mg/dL (7-18); BUN/Creat Ratio 20.5 RATIO (10-20); Calcium,Total 8.6 mg/dL (8.5-10.1); Chloride 108 mmol/L (98-107); Creatinine, Serum 0.83 mg/dL (0.55-1.02); EST Glomerular Filtration Rate 73 mL/min (>60); Est Glom Filt Rate - Afr Amer 88 mL/min (>60); Estimated Creatinine Clearance 71.52 ml/min; Globulin 3.5 g/dL (2.2-4.2); Glucose 139 mg/dL (74-106); Potassium 3.6 mmol/L (3.5-5.1); Protein, Total 6.6 g/dL (6.4-8.2); Sodium Level 142 mmol/L (136-145); Troponin-I HS 20 pg/mL (3.0-54.0)
[2024-08-21 22:29] VITALS: BP 157/90; PULSE 77; RESP 20; TEMP 37.2; O2SAT 91
[2024-08-21] MEDS: predniSONE 20 MG Tablet 40 MG PO (22:29)
[2024-08-21] MEDS: oxyCODONE 5 MG Tablet PO (22:29)
== END 2024-08-21 22:37 | disposition home or self-care (01) ==
PROVIDERS: Emergency Provider Emergency Medicine; PCP Internal Medicine; Visit Provider Emergency Medicine
DX: M25.511 Pain in right shoulder (principal); I11.0 Hypertensive heart disease with heart failure; I50.42 Chronic combined systolic (congestive) and diastolic (congestive) heart failure; J44.9 Chronic obstructive pulmonary disease, unspecified; I25.10 Atherosclerotic heart disease of native coronary artery without angina pectoris; R10.9 Unspecified abdominal pain; I25.2 Old myocardial infarction; Z86.718 Personal history of other venous thrombosis and embolism; Z86.73 Personal history of transient ischemic attack (TIA), and cerebral infarction without residual deficits
CPT/HCPCS: 71046; 73030; 80053; 84484; 85025; 93005; 99283; A4216

== ENCOUNTER 2024-09-28 13:22 | Inpatient (IN) | payer MEDICARE, MEDICAID, SELFPAY ==
[2024-09-28] VITALS (12 sets, daily range): BP systolic 102–148; BP diastolic 74–84; PULSE 62–78; RESP 14–20; TEMP 36.6–37.5; O2SAT 87–96; BMI 32.1; BMI 35.9
--- NOTE | 2024-09-28 13:24 | EKG12_ITS ---
Test Reason : SOB Blood Pressure : */* mmHG Vent. Rate : 65 BPM Atrial Rate : 65 BPM P-R Int : 128 ms QRS Dur : 94 ms QT Int : 406 ms P-R-T Axes : 82 53 81 degrees QTcB Int : 422 ms Normal sinus rhythm Cannot rule out Inferior infarct (cited on or before 21-Aug-2024) Possible Anterolateral infarct (cited on or before 21-Aug-2024) Abnormal ECG Confirmed by SAMUEL MARTINEZ, TABATHA ([id number]), mapping editor SANTIAGO SMALL ([id number]) on 10/04/2024 7:07:57 AM Referred By: Confirmed By: TABATHA BAKER MD
--- NOTE | 2024-09-28 13:40 | RAD_ITS ---
EXAM: XR CHEST, 1 VIEW CLINICAL INDICATION: chest pain TECHNIQUE: Frontal view of the chest. COMPARISON: No relevant prior studies available. FINDINGS: LUNGS AND PLEURAL SPACES: Pleural-parenchymal scarring at the right base. No consolidation. No pleural effusions or pneumothorax. HEART: See below. MEDIASTINUM: At least moderate size hiatal hernia. Enlarged cardiac silhouette concerning for cardiomegaly and/or pericardial effusion. BONES/JOINTS: Degenerative changes of the spine. No acute fracture. SOFT TISSUES: Unremarkable. VASCULATURE: Atherosclerotic calcifications of the nonenlarged thoracic aorta. Thickened right minor fissure,. RAD/Chest 1 View (Portable) IMPRESSION: No acute cardiopulmonary disease. Electronically Signed: Ross Denton MD at 14:37 EST ,
[2024-09-28 13:46] LABS: Absolute Lymphocyte Count 2.14 X10^3/uL (0.83-4.51); Absolute Neutrophil Count 4.6 X10^3/uL (2.0-7.7); Basophil# 0.06 X10^3/uL; Basophil% 0.8 % (0-1); Eosinophils% 2.7 % (0-5); Hematocrit 40.4 % (37-47); Hemoglobin 13.4 g/dL (12.0-15.0); Lymphocyte # 2.14 X10^3/ul (0.83-4.51); Lymphocyte % 28.4 % (19-41); Mean Corp Hgb Conc 33.2 g/dL (32-36); Mean Corpuscular Hgb 31.4 pg (27.0-32.0); Mean Corpuscular Volume 94.6 fL (81-99); Mean Platelet Vol. 8.9 fl (6.2-12.0); Monocyte% 6.6 % (0-10); NRBC Flagged by Analyzer 0 % (0-5); Neutrophil # 4.61 X10^3/uL (2.7-7.7); Neutrophil % 61.2 % (47-70); Platelet Count 230 K/mm3 (150-450); RBC Distribution Width CV 12.8 % (11.6-14.6); RBC Distribution Width SD 43.9 fl (35.1-43.9); Red Blood Count 4.27 M/mm3 (4.2-5.4); White Blood Count 7.5 K/mm3 (4.4-11.0)
[2024-09-28 13:56] LABS: Anion Gap 4 (5-15); BUN 13 mg/dL (7-18); Calcium,Total 9.4 mg/dL (8.5-10.1); Chloride 103 mmol/L (98-107); Creatinine, Serum 0.76 mg/dL (0.55-1.02); EST Glomerular Filtration Rate 80 mL/min (>60); Est Glom Filt Rate - Afr Amer 97 mL/min (>60); Estimated Creatinine Clearance 74.64 ml/min; Glucose 100 mg/dL (74-106); Potassium 4.4 mmol/L (3.5-5.1); Sodium Level 138 mmol/L (136-145); Troponin-I HS (w/2H Reflex) 14 pg/mL (3.0-54.0)
--- NOTE | 2024-09-28 14:14 | ED.VIS.DYS ---
HPI History of Present Illness Chief Complaint: Cough Detail of Chief Complaint: Cough and shortness of breath Informant: patient Narrative Narrative: Patient presents with cough and some shortness of breath that started about 5 days ago. She said multiple sick contacts. Patient has history of COPD but does not wear home O2. She denies fever. She describes intermittent chest pain especially with breathing and sharp in both lungs. Denies recent travel or surgery. Patient tells me she is on Xarelto for history of DVTs. [facility] Medical History Wears glasses Post-menopausal Arthritis History of renal disease High cholesterol DVT (deep venous thrombosis) Easy bruising Excessive bleeding Back pain Injury of back History of ulceration Difficulty chewing Gastric reflux Shortness of breath on exertion Hoarseness Chronic cough Leg cramps History of pain when walking History of edema History of echocardiogram History of stress test Cardiology follow-up encounter History of CHF (congestive heart failure) History of irregular heartbeat Chest pain Bullous emphysema COPD with asthma Esophagitis, unspecified without bleeding Unspecified combined 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 Other chronic pain Elevated troponin Sustained SVT Depression Osteoporosis Kidney stones Smoker Myocardial infarct History of non-ST elevation myocardial infarction (NSTEMI) (09/01/21) Essential hypertension Old anterior wall myocardial infarction Ischemic cardiomyopathy Opiate dependence Anxiety and depression TIA (transient ischemic attack) Obesity (BMI 30.0-34.9) EVELYN (obstructive sleep apnea) Personal history of transient ischemic attack (TIA), and cerebral infarction without residual deficits COPD (chronic obstructive pulmonary disease) Calculus of left kidney GERD (gastroesophageal reflux disease) Hyperlipidemia Atherosclerotic heart disease of [place] coronary artery without angina pectoris Tobacco abuse Home Medications ?Medication ?Instructions ?Recorded ?Last Taken ?Type clopidogrel 75 mg tablet (Plavix) 75 mg PO DAILY 30 days #30 tabs 01/04/23 09/25/23 Rx lisinopril 2.5 mg tablet 2.5 mg PO DAILY 30 days #30 tabs 01/04/23 06/24/23 Rx ondansetron 4 mg disintegrating 4 mg PO Q8H PRN PRN Nausea #12 tabs 01/13/23 Unknown Rx tablet albuterol sulfate 90 mcg/actuation 2 puff inhalation Q6H PRN 02/17/23 Unknown Rx aerosol inhaler shortness of breath or wheezing #8.5 grams budesonide-formoterol HFA 160 1 puff inhalation BID #10.2 grams 02/17/23 Unknown Rx mcg-4.5 mcg/actuation aerosol inhaler (Symbicort) inhalational spacing device #1 ea 02/17/23 Unknown Rx (Aerochamber MV spacer) tiotropium bromide 2.5 2 puff inhalation DAILY #4 grams 02/17/23 Unknown Rx mcg/actuation mist for inhalation (Spiriva Respimat) pantoprazole 40 mg tablet,delayed 40 mg PO Q12H #60 tabs 06/24/23 09/28/23 Rx release lorazepam 1 mg tablet (Ativan) 1 mg PO BID PRN anxiety 07/16/23 09/28/23 History amiodarone 200 mg tablet 200 mg PO DAILY 07/22/23 Unknown History carvedilol 6.25 mg tablet 6.25 mg PO Q12H 07/29/23 09/28/23 History furosemide 20 mg tablet 20 mg PO Q12H 07/29/23 Unknown History gabapentin 400 mg capsule 400 mg PO Q8H 07/29/23 09/28/23 History nitroglycerin 0.4 mg sublingual 0.4 mg buccal Q5M PRN chest pain 07/29/23 Unknown History tablet oxycodone myristate 9 mg capsule 13.5 mg PO Q12H 07/29/23 Unknown History sprinkle extended release 12 hr(DON'T CRUSH) (Xtampza ER) sucralfate 1 gram tablet 1 g PO Q8H 07/29/23 Unknown History albuterol sulfate 2.5 mg/3 mL 2.5 mg continuous nebulization Q6H 09/05/23 Unknown History (0.083 %) solution for nebulization PRN shortness of breath or wheezing melatonin 3 mg capsule 3 mg PO QHS 09/05/23 Unknown History cyclobenzaprine 5 mg tablet 5 mg PO TID PRN muscle spasm #15 11/30/23 Unknown Rx tabs carvedilol 12.5 mg tablet (Coreg) 12.5 mg PO BID #60 tabs 07/07/24 Unknown Rx prednisone 20 mg tablet 40 mg (2 x 20 mg) PO DAILY 5 days 08/21/24 Unknown Rx #10 tabs Allergy/AdvReac Type Severity Reaction Status Date / Time No Known Allergies Allergy Verified 08/21/24 21:05 Family History Mother Hypertension CAD (coronary artery disease) CVA (cerebral vascular accident) Myocardial infarction Grandmother Myocardial infarction Surgical History History of cardiac catheterization History of hysterectomy History of left heart catheterization (01/20/22) History of total hysterectomy Hx of appendectomy Hx of esophagogastroduodenoscopy Social History household members: none Smoking Status: Current some day smoker tobacco type: cigarettes alcohol intake: never substance use type: does not use ROS ROS ED Review of Systems ROS Unobtainable: other Constitutional Constitutional ED: Reports lethargy; Denies chills, fever(s), sweats or weight loss Eyes Eyes: Denies blurry vision, change in vision or diplopia ENT ENT ED: Denies rhinorrhea or sore throat Cardiovascular Cardiovascular: Reports chest pain; Denies orthopnea or racing heartbeat Respiratory/Chest Respiratory/Chest: Reports cough, dyspnea and dyspnea on exertion; Denies orthopnea or sputum Gastrointestinal Gastrointestinal: Denies abdominal pain, diarrhea, nausea or vomiting Genitourinary Genitourinary ED: Denies dysuria, hematuria or urinary frequency Musculoskeletal Musculoskeletal: Denies arthralgias, back pain, myalgias or neck pain Integumentary Denies abscess, Abrasions or rash Neurologic Neurologic: Denies headache(s) or weakness Psychiatric Psychiatric: Denies anxiety, depression or suicidal thoughts Endocrine Endocrinology: Denies polydipsia, polyphagia or polyuria Hematologic/Lymphatic Hematologic/Lymphatic: Denies easy bleeding, easy bruising or lymphadenopathy Allergic/Immunologic Allergic/Immunologic ED: Denies mouth swelling, tongue swelling or urticaria EXAM Physical Exam Const Vital Signs: 09/28/24 13:22 09/28/24 14:07 09/28/24 14:07 Temperature 97.8 F Temperature Source Temporal Pulse Rate 65 Respiratory Rate 19 H Respiratory Effort Normal Non-Labored Respiratory Depth Normal Respiratory Pattern Normal Blood Pressure 138/79 H Blood Pressure Mean 98 Pulse Ox 91 87 Oxygen Delivery Method Room Air Room Air Oxygen Flow Rate (L/min) 09/28/24 14:12 09/28/24 14:13 09/28/24 14:33 Temperature Temperature Source Pulse Rate 62 Respiratory Rate 14 Respiratory Effort Respiratory Depth Respiratory Pattern Normal Blood Pressure Blood Pressure Mean Pulse Ox 96 96 Oxygen Delivery Method Nasal Cannula Nasal Cannula Oxygen Flow Rate (L/min) 2 2 Positive well nourished and well developed General Appearance ED: well developed and NAD HEENT Reports TM's clear and moist mucous membranes normocephalic and atraumatic; Negative for trauma or tenderness Tympanic Membrane ED: Yes TM's clear Eyes PERRL and EOMs intact bilaterally General Eye ED: Negative for pale conjunctiva or scleral icterus Neck no lymphadenopathy, supple and no JVD General: Negative for tenderness Chest Wall inspection of chest normal and palpation of chest normal Chest: Negative for tenderness Resp normal respiratory effort Resp Narrative: Patient with some coarse breath sounds bilaterally with some faint expiratory wheezes and some rhonchi. No significant conversational dyspnea. No deputy assessor muscle use or retractions. Effort and Inspection: Negative for respiratory distress or pain with movement Auscultation: Negative for rhonchi, wheezes or diminished lung sounds Cardio regular rate, regular rhythm, S1 normal heart sound, S2 normal heart sound and no murmurs Peripheral Pulses: pulses 2+ throughout GI normal to inspection, nondistended, normoactive bowel sounds, soft to palpation, non-tender, non-distended and no masses Back/Spine no CVA tenderness and no thoracic nor lumbar tenderness Extremity normal to inspection General Extremety ED: Negative for edema General Extremity: Negative for edema Neuro oriented x3, CN's II-XII intact bilaterally, no sensory deficits noted and gait normal Sensorium / Orientation: awake, alert, oriented to person, oriented to place and oriented to time Motor Exam: strength 5/5 throughout and strength abnormal Psych mental status grossly normal Skin no rashes or lesions noted and no wounds MDM MDM MDM Narrative Medical decision making narrative: Patient presents with cough and shortness of breath. Cough mostly nonproductive. Symptoms ongoing for about 5 days. Patient noted to be hypoxic on arrival to the emergency department and she does have history of COPD. She does not wear home O2. At rest she was 86 to 89% on room air. Wheezing throughout. She is on Xarelto for history of DVT. IV line established. CBC with differential obtained showed a white count 7.5 with hemoglobin 13.4 and platelet count of 230. Chemistries unremarkable. Troponin was normal at 14 and BT DENITRATOR was slightly elevated to 74. Chest x-ray obtained showed no evidence of infiltrate or acute process. She was medicated with DuoNeb aerosol and started on Solu-Medrol. Case will be discussed with hospitalist to evaluate patient for admission for COPD exacerbation with respiratory failure and hypoxemia Lab Data Attestation: I reviewed the patient's lab results. Labs: Laboratory Results - last 24 hr 09/28/24 13:32 WBC 7.5 RBC 4.27 Hgb 13.4 Hct 40.4 MCV 94.6 MCH 31.4 MCHC 33.2 RDW Std Deviation 43.9 RDW Coeff of Sariah 12.8 Plt Count 230 MPV 8.9 Immature Gran % (Auto) 0.300 Neut % (Auto) 61.2 Lymph % (Auto) 28.4 [place] % (Auto) 6.6 Eos % (Auto) 2.7 Baso % (Auto) 0.8 Absolute Neuts (auto) 4.6 Absolute Lymphs (auto) 2.14 Nucleated RBC % 0 Sodium 138 Potassium 4.4 Chloride 103 Carbon Dioxide 30.0 Anion Gap 4 L BUN 13 Creatinine 0.76 Estim Creat Clear Calc 74.64 Est GFR (MDRD) Af Amer 97 Est GFR (MDRD) Non-Af 80 BUN/Creatinine Ratio 17.0 Glucose 100 Calcium 9.4 Troponin I High Sens 14 B-Natriuretic Peptide 274.6 H Radiography Diagnostic Testing: Clinical Impression(s) from Imaging Studies Chest X-Ray 09/28/24 13:40 IMPRESSION: No acute cardiopulmonary disease. Electronically Signed: Ross Denton MD at 14:37 EST , 1 view chest x-ray obtained interpreted by myself as no evidence of infiltrate or pneumothorax or acute disease process. Radiology in agreement EKG Initial EKG: Attestation: I personally reviewed and interpreted this EKG as follows: Comments: Sinus rhythm with rate of [address] changes Discharge Plan Triage Chief Complaint: Cough ED Provider: Keisha Williamson Dx/Rx/DC Orders Clinical Impression: COPD exacerbation, Respiratory failure, Hypoxemia Prescriptions: No Action budesonide-formoterol [Symbicort] 160-4.5 mcg/actuation HFA aerosol inhaler 1 puff inhalation BID Qty: 10.2 11RF Spiriva Respimat 2.5 mcg/actuation mist 2 puff inhalation DAILY Qty: 4 11RF albuterol sulfate 90 mcg/actuation HFA aerosol inhaler 2 puff inhalation Q6H MDD 10 puffs PRN (Reason: shortness of breath or wheezing) Qty: 8.5 6RF Rx Instructions: This inhaler must be used with a spacer device. (DME) Aerochamber MV Spacer See Rx Instructions .ROUTE .MEDSUPPLY Qty: 1 0RF Rx Instructions: As directed lorazepam [Ativan] 1 mg tablet 1 mg PO BID PRN (Reason: anxiety) clopidogrel [Plavix] 75 mg tablet 75 mg PO DAILY 30 Days Qty: 30 0RF lisinopril 2.5 mg tablet 2.5 mg PO DAILY 30 Days Qty: 30 0RF ondansetron 4 mg tablet,disintegrating 4 mg PO Q8H PRN PRN (Reason: Nausea) Qty: 12 0RF pantoprazole 40 mg tablet,delayed release (DR/EC) 40 mg PO Q12H Qty: 60 3RF albuterol sulfate 2.5 mg /3 mL (0.083 %) solution for nebulization 2.5 mg continuous nebulization Q6H PRN (Reason: shortness of breath or wheezing) melatonin 3 mg capsule 3 mg PO QHS amiodarone 200 mg tablet 200 mg PO DAILY gabapentin 400 mg capsule 400 mg PO Q8H carvedilol 6.25 mg tablet 6.25 mg PO Q12H furosemide 20 mg tablet 20 mg PO Q12H nitroglycerin 0.4 mg tablet, sublingual 0.4 mg buccal Q5M PRN (Reason: chest pain) Xtampza ER 9 mg cap,sprinkl,ER12hr(DONT CRUSH) 13.5 mg PO Q12H sucralfate 1 gram tablet 1 g PO Q8H cyclobenzaprine 5 mg tablet 5 mg PO TID PRN (Reason: muscle spasm) Qty: 15 0RF carvedilol [Coreg] 12.5 mg tablet 12.5 mg PO BID Qty: 60 0RF Rx Instructions: must administer with a meal/food prednisone 20 mg tablet 40 mg PO DAILY 5 Days Qty: 10 0RF Primary Care Provider: Sandy Barbosa Referrals: Sandy Barbosa MD [Primary Care Provider] - Print Language: [place] Disposition Disposition: Acute Care Hospital [facility]
[2024-09-28] MEDS: MethylPREDNISolone 125 MG/2 ML Vial IV (14:26)
[2024-09-28] MEDS: Ipratropium/Albuterol Sulfate 3 ML AMPUL.NEB INHALATION ×3 (14:32→22:40)
[2024-09-28 14:39] LABS: BNP,B-Type NATRIURETIC PEPTIDE 274.6 pg/mL (0-100)
[2024-09-28 15:35] LABS: Reflex Troponin-HS? (from REC) Y
--- NOTE | 2024-09-28 16:40 | PCM.HP.STD ---
HPI - General General Date of Admission: 09/28/24 Date of Service: 09/28/24 Chief Complaint: SOB HPI Narrative ECHO KERNS, is a 68 F with history of COPD, CHF, GERD, LV thrombus in 2022, anxiety, chronic pain who presented [facility] ED 09/28/2024 with cough and shortness of breath for 5 days with multiple sick contacts. In the ED patient wheezing and had no infiltrate on chest x-ray and desaturated to 86% on room air and placed on 2 L. She was given methylprednisolone and DuoNeb and hospitalist contacted for admission. Patient evaluated at bedside and reports increasing shortness of breath for the past 1 week, has a chronic cough but this is also increased over the past several days. She has felt like maybe she has had a fever but has not checked for this, does report multiple sick contacts. Has some chronic intermittent left-sided chest pain for years which comes and goes and has not changed. Neuropathy in her hands and feet, no significant lower extremity swelling. Does stay constipated given her home medications and reports she intermittently has some right sided abdominal and flank pain and is post to have a hernia repaired, also at times think she has frothy urine and has a history of abnormal cells in her esophagus and has to have EGDs every 6 months per patient. [facility] Medical History Wears glasses Post-menopausal Arthritis History of renal disease High cholesterol DVT (deep venous thrombosis) Easy bruising Excessive bleeding Back pain Injury of back History of ulceration Difficulty chewing Gastric reflux Shortness of breath on exertion Hoarseness Chronic cough Leg cramps History of pain when walking History of edema History of echocardiogram History of stress test Cardiology follow-up encounter History of CHF (congestive heart failure) History of irregular heartbeat Chest pain Bullous emphysema COPD with asthma Esophagitis, unspecified without bleeding Unspecified combined 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 Other chronic pain Elevated troponin Sustained SVT Depression Osteoporosis Kidney stones Smoker Myocardial infarct History of non-ST elevation myocardial infarction (NSTEMI) (09/01/21) Essential hypertension Old anterior wall myocardial infarction Ischemic cardiomyopathy Opiate dependence Anxiety and depression TIA (transient ischemic attack) Obesity (BMI 30.0-34.9) EVELYN (obstructive sleep apnea) Personal history of transient ischemic attack (TIA), and cerebral infarction without residual deficits COPD (chronic obstructive pulmonary disease) Calculus of left kidney GERD (gastroesophageal reflux disease) Hyperlipidemia Atherosclerotic heart disease of [place] coronary artery without angina pectoris Tobacco abuse Home Medications ?Medication ?Instructions ?Recorded ?Last Taken ?Type clopidogrel 75 mg tablet (Plavix) 75 mg PO DAILY 30 days #30 tabs 01/04/23 09/27/24 Rx albuterol sulfate 90 mcg/actuation 2 puff inhalation Q6H PRN 02/17/23 Unknown Rx aerosol inhaler shortness of breath or wheezing #8.5 grams budesonide-formoterol HFA 160 1 puff inhalation BID #10.2 grams 02/17/23 09/27/24 Rx mcg-4.5 mcg/actuation aerosol inhaler (Symbicort) inhalational spacing device #1 ea 02/17/23 Unknown Rx (Aerochamber MV spacer) tiotropium bromide 2.5 2 puff inhalation DAILY #4 grams 02/17/23 09/27/24 Rx mcg/actuation mist for inhalation (Spiriva Respimat) lorazepam 1 mg tablet (Ativan) 1 mg PO TID PRN anxiety 07/16/23 09/27/24 History amiodarone 200 mg tablet 200 mg PO DAILY 07/22/23 09/27/24 History furosemide 20 mg tablet 20 mg PO Q12H 07/29/23 Unknown History gabapentin 400 mg capsule 400 mg PO Q6H 07/29/23 09/27/24 History nitroglycerin 0.4 mg sublingual 0.4 mg buccal Q5M PRN chest pain 07/29/23 Unknown History tablet sucralfate 1 gram tablet 1 g PO Q8H 07/29/23 09/27/24 History albuterol sulfate 2.5 mg/3 mL 2.5 mg continuous nebulization Q6H 09/05/23 Unknown History (0.083 %) solution for nebulization PRN shortness of breath or wheezing melatonin 3 mg capsule 3 mg PO QHS 09/05/23 09/27/24 History carvedilol 12.5 mg tablet (Coreg) 12.5 mg PO BID #60 tabs 07/07/24 09/27/24 Rx albuterol 90 mcg-budesonide 80 1 - 2 inh inhalation BID PRN 09/28/24 09/27/24 History mcg/actuation HFA aerosol inhaler shortness of breath (Airsupra) atorvastatin 40 mg tablet 40 mg PO QHS 09/28/24 09/27/24 History bisacodyl 5 mg tablet,delayed 5 mg PO DAILY PRN constipation 09/28/24 Unknown History release cholecalciferol (vitamin D3) 125 125 mcg PO DAILY 09/28/24 09/27/24 History mcg (5,000 unit) capsule hydrocodone-acetaminophen 5-325mg 1 tab PO Q4H 09/28/24 09/27/24 History 5mg-325mg lisinopril 5 mg tablet 5 mg PO DAILY 09/28/24 09/27/24 History oxycodone myristate 18 mg capsule 18 mg PO BID 09/28/24 09/27/24 History sprinkle extended release 12hr(DON'T CRUSH) (Xtampza ER) polyethylene glycol 3350 17 17 g PO BID 09/28/24 09/27/24 History gram/dose oral powder potassium chloride 20 mEq 20 meq PO DAILY 09/28/24 09/27/24 History tablet,extended release(part/cryst) promethazine 25 mg tablet 25 mg PO PRN PRN nausea and 09/28/24 Unknown History vomiting Allergy/AdvReac Type Severity Reaction Status Date / Time No Known Allergies Allergy Verified 08/21/24 21:05 Family History Mother Hypertension CAD (coronary artery disease) CVA (cerebral vascular accident) Myocardial infarction Grandmother Myocardial infarction Surgical History History of cardiac catheterization History of hysterectomy History of left heart catheterization (01/20/22) History of total hysterectomy Hx of appendectomy Hx of esophagogastroduodenoscopy Social History household members: none Smoking Status: Current some day smoker tobacco type: cigarettes alcohol intake: never substance use type: does not use ROS ROS Narrative General: Feels like maybe she has had a fever but is unsure HENT: Some chronic difficulty with her swallowing that is unchanged EYES: Denies acute changes in vision Resp: Does have increasing cough and shortness of breath Cardiac: Some chronic intermittent chest pain which is completely unchanged typical GI: Has problems with right-sided abdominal pain due to hernia that is not acutely different, also has some constipation : Denies changes in urination Extremity: Denies current swelling in bilateral lower extremities MSK: Little bit weak overall Neuro: Chronic neuropathy Heme: No active bleeding reported Skin: Denies rashes Psychiatric: No complaints voiced Vital Signs Vital Signs Vital Signs: 09/28/24 13:22 09/28/24 14:07 09/28/24 14:07 Temperature 97.8 F Temperature Source Temporal Pulse Rate 65 Respiratory Rate 19 H Respiratory Effort Normal Non-Labored Respiratory Depth Normal Respiratory Pattern Normal Blood Pressure 138/79 H Blood Pressure Mean 98 Pulse Ox 91 87 Oxygen Delivery Method Room Air Room Air Oxygen Flow Rate (L/min) 09/28/24 14:12 09/28/24 14:13 09/28/24 14:33 Temperature Temperature Source Pulse Rate 62 Respiratory Rate 14 Respiratory Effort Respiratory Depth Respiratory Pattern Normal Blood Pressure Blood Pressure Mean Pulse Ox 96 96 Oxygen Delivery Method Nasal Cannula Nasal Cannula Oxygen Flow Rate (L/min) 2 2 09/28/24 16:00 Temperature 98 F Temperature Source Pulse Rate 68 Respiratory Rate 15 Respiratory Effort Respiratory Depth Respiratory Pattern Blood Pressure 102/74 Blood Pressure Mean 83 Pulse Ox 94 Oxygen Delivery Method Oxygen Flow Rate (L/min) Weight Weight: 87.725 kg Body Mass Index (BMI) 32.1 Physical Exam Narrative General: Alert, oriented, no apparent distress HEENT: Atraumatic, normocephalic Eyes: Anicteric, normal conjunctiva, extraocular movements grossly intact Neck: Supple Respiratory: Scattered wheezes with slight increased respiratory effort Cardiovascular: Regular rate GI: Soft, nontender, nondistended Extremities: No edema Musculoskeletal: Moving all extremities Neuro: No overt focal neurological deficits Skin: No rashes appreciated Psych: Cooperative Results Lab / Micro Data 09/28/24 13:32 09/28/24 13:32 Labs: Laboratory Results - last 24 hr 09/28/24 13:32: WBC 7.5, RBC 4.27, Hgb 13.4, Hct 40.4, MCV 94.6, MCH 31.4, MCHC 33.2, RDW Std Deviation 43.9, RDW Coeff of Sariah 12.8, Plt Count 230, MPV 8.9, Immature Gran % (Auto) 0.300, Neut % (Auto) 61.2, Lymph % (Auto) 28.4, [place] % (Auto) 6.6, Eos % (Auto) 2.7, Baso % (Auto) 0.8, Absolute Neuts (auto) 4.6, Absolute Lymphs (auto) 2.14, Nucleated RBC % 0, Sodium 138, Potassium 4.4, Chloride 103, Carbon Dioxide 30.0, Anion Gap 4 L, BUN 13, Creatinine 0.76, Estim Creat Clear Calc 74.64, Est GFR (MDRD) Af Amer 97, Est GFR (MDRD) Non-Af 80, BUN/Creatinine Ratio 17.0, Glucose 100, Calcium 9.4, Troponin I High Sens 14, B-Natriuretic Peptide 274.6 H Micro: Microbiology 09/28/24 13:28 Mucosa - Nose SARS-CoV-2, Influenza & RSV (PCR) - Final Imaging Radiology Impression Chest X-Ray 09/28/24 13:40 IMPRESSION: No acute cardiopulmonary disease. Electronically Signed: Ross Denton MD at 14:37 EST , Assessment & Plan Assessment/Plan (1) COPD exacerbation: PLAN: Plan #Acute exacerbation of COPD -Admit to floor, continuous O2 monitoring -Chest x-ray: No acute infiltrate COVID negative, obtain respiratory panel, sputum culture if able -O2 in place, wean as tolerated -IV methylprednisone -Scheduled DuoNebs -Albuterol prn -Antibiotics: Azithromycin -Incentive spirometer -Mucinex # History of heart failure with reduced ejection fraction not presently in exacerbation -Last echo in 2022 with an EF of 30 to 35% -Daily weights, I's and O's -Continue home Lasix -Decrease home carvedilol given blood pressure borderline -Holding home SUKHI inhibitor again due to patient's current blood pressure, can uptitrate as tolerated # History of LV thrombus -Back in 2022, does not appear patient is still on Xarelto # History of PVD and TIAs -Continue Plavix -Continue statin #Depression/anxiety -Continue home medications # Chronic pain -Is on maintenance medication on an outpatient basis -Will continue this while inpatient #DVT ppx: Lovenox subcu Gloria Madrid MD Charges/Coding Visit Charges Inpatient E&M: 45220 Init Hosp L2
[2024-09-28 16:54] LABS: Troponin-I HS 13 pg/mL (3.0-54.0)
--- NOTE | 2024-09-28 18:47 | CASEMGMT ---
Care Management Face to Face with patient for initial transition planning/care coordination assessment in the ED.? This loan underwriter introduced self and role at [facility]. Patient alert and oriented. Patient willing to participate in assessment and is able to answer all questions for patient appropriately.? Care providers, pharmacy, and demographics verified. Admitting Diagnosis: ?COPD exacerbation Other diagnosis history: ?DVT, Osteoporosis, TIA, COPD PCP: ?Fam[facility] Specialists: Ever Preferred Pharmacy: [facility] pharmacy Insurance: [employer] Prescription Benefit:?yes ? Living Will/HPOA: Does not have one, is interested in completing while in hospital LNOK: daughter Living Arrangements: Lives in an upstairs apartment, states she uses the elevator to access.? Reports to completing all ADLs, meals, laundry etc. Transportation: family transports DME: None HHC: None SNF/Rehab: ?Prior stays at [facility] Resources: None Behavioral Health History: anxiety and depression, currently taking Ativan Patient goals: Patient wishes to discharge home.? Patient states he has no further needs or concerns at this time. Disposition Plan: admission to acute; RN CM/SW to follow for discharge planning needs that may arise. Brianna Cano, MANAGER CODING, [employer]
[2024-09-28] MEDS: LORazepam 1 MG Tablet PO (18:51)
[2024-09-28] MEDS: Furosemide 20 MG Tablet PO (18:51)
[2024-09-28] MEDS: Gabapentin 400 MG Capsule PO (18:52)
[2024-09-28] MEDS: Atorvastatin Calcium 40 MG Tablet PO (20:23)
[2024-09-28] MEDS: oxyCODONE HCl Cr 10 MG Tablet PO (20:23)
[2024-09-28] MEDS: Polyethylene Glycol 3350 17 GM PACKET PO (20:24)
[2024-09-28] MEDS: MELATONIN 3 MG TABLET PO (20:24)
[2024-09-28] MEDS: HYDROcodone Bitartrate/Apap 5/325 Tablet PO (20:24)
[2024-09-28] MEDS: guaiFENesin 1,200 MG Tablet 1200 MG PO (20:24)
[2024-09-29] VITALS (15 sets, daily range): BP systolic 117–130; BP diastolic 59–82; PULSE 71–92; RESP 16–18; TEMP 36.5–36.9; O2SAT 88–96; BMI 36.3
[2024-09-29] MEDS: Gabapentin 400 MG Capsule PO ×4 (00:21→17:36)
[2024-09-29] MEDS: HYDROcodone Bitartrate/Apap 5/325 Tablet PO ×6 (00:21→20:30)
[2024-09-29] MEDS: Ipratropium/Albuterol Sulfate 3 ML AMPUL.NEB INHALATION ×5 (02:42→19:34)
[2024-09-29] MEDS: LORazepam 1 MG Tablet PO ×3 (04:10→20:35)
[2024-09-29] MEDS: Furosemide 20 MG Tablet PO ×2 (05:43→17:36)
[2024-09-29] MEDS: Sucralfate 1 GM Tablet PO ×3 (05:43→16:20)
[2024-09-29 06:01] LABS: Absolute Lymphocyte Count 0.97 X10^3/uL (0.83-4.51); Absolute Neutrophil Count 5.7 X10^3/uL (2.0-7.7); Basophil# 0.01 X10^3/uL; Basophil% 0.1 % (0-1); Hemoglobin 12.7 g/dL (12.0-15.0); Lymphocyte # 0.97 X10^3/ul (0.83-4.51); Lymphocyte % 14.3 % (19-41); Mean Corp Hgb Conc 31.8 g/dL (32-36); Mean Corpuscular Hgb 30.2 pg (27.0-32.0); Mean Corpuscular Volume 95.2 fL (81-99); Mean Platelet Vol. 9.3 fl (6.2-12.0); Monocyte# 0.06 X10^3/uL; Monocyte% 0.9 % (0-10); NRBC Flagged by Analyzer 0 % (0-5); Neutrophil # 5.72 X10^3/uL (2.7-7.7); Neutrophil % 84.3 % (47-70); Platelet Count 224 K/mm3 (150-450); RBC Distribution Width CV 12.7 % (11.6-14.6); RBC Distribution Width SD 44.1 fl (35.1-43.9); White Blood Count 6.8 K/mm3 (4.4-11.0)
[2024-09-29 06:49] LABS: Anion Gap 8 (5-15); BUN 20 mg/dL (7-18); BUN/Creat Ratio 25.5 RATIO (10-20); Chloride 105 mmol/L (98-107); Creatinine, Serum 0.78 mg/dL (0.55-1.02); EST Glomerular Filtration Rate 78 mL/min (>60); Est Glom Filt Rate - Afr Amer 94 mL/min (>60); Estimated Creatinine Clearance 68.51 ml/min; Glucose 178 mg/dL (74-106); Sodium Level 140 mmol/L (136-145)
[2024-09-29] MEDS: Potassium Chloride Oral Tablet 20 MEQ PO (07:52)
[2024-09-29] MEDS: Carvedilol 3.125 MG TABLET PO ×2 (07:52→16:21)
--- NOTE | 2024-09-29 08:11 | PCM.PN.HOSP ---
Reason for Visit Reason for Visit: Diagnoses Chronic obstructive pulmonary disease with (acute) exacerbation (09/28/24) Subjective Subjective Patient is a 68-year-old lady who presented with shortness of breath diagnosed with COPD with acute exacerbation admitted to regular nursing floor for further management Objective Data Objective Data Vital Signs: Vital Signs Temp Pulse Resp BP Pulse Ox O2 Del Method O2 Flow Rate 97.8 F 81 16 120/59 L 94 Nasal Cannula 3 09/29/24 07:42 09/29/24 07:42 09/29/24 07:42 09/29/24 07:42 09/29/24 07:42 09/29/24 07:45 09/29/24 07:45 Oxygen Flow Rate (L/min) 3 Oxygen Delivery Method Nasal Cannula Weight: 87.3 kg Body Mass Index (BMI) 36.3 Intake & Output: Intake and Output for Last 24 Hours 09/27/24 09/28/24 09/29/24 23:59 23:59 23:59 Intake Total 350 / 350 Balance 350 / 350 Lab / Micro Data 09/29/24 05:03 09/29/24 05:03 Labs: Laboratory Results - last 24 hr 09/28/24 13:32: WBC 7.5, RBC 4.27, Hgb 13.4, Hct 40.4, MCV 94.6, MCH 31.4, MCHC 33.2, RDW Std Deviation 43.9, RDW Coeff of Sariah 12.8, Plt Count 230, MPV 8.9, Immature Gran % (Auto) 0.300, Neut % (Auto) 61.2, Lymph % (Auto) 28.4, [place] % (Auto) 6.6, Eos % (Auto) 2.7, Baso % (Auto) 0.8, Absolute Neuts (auto) 4.6, Absolute Lymphs (auto) 2.14, Nucleated RBC % 0, Sodium 138, Potassium 4.4, Chloride 103, Carbon Dioxide 30.0, Anion Gap 4 L, BUN 13, Creatinine 0.76, Estim Creat Clear Calc 74.64, Est GFR (MDRD) Af Amer 97, Est GFR (MDRD) Non-Af 80, BUN/Creatinine Ratio 17.0, Glucose 100, Calcium 9.4, Troponin I High Sens 14, B-Natriuretic Peptide 274.6 H 09/28/24 16:10: Troponin I High Sens 13 09/29/24 05:03: WBC 6.8, RBC 4.20, Hgb 12.7, Hct 40.0, MCV 95.2, MCH 30.2, MCHC 31.8 L, RDW Std Deviation 44.1 H, RDW Coeff of Sariah 12.7, Plt Count 224, MPV 9.3, Immature Gran % (Auto) 0.400, Neut % (Auto) 84.3 H, Lymph % (Auto) 14.3 L, [place] % (Auto) 0.9, Eos % (Auto) 0.0, Baso % (Auto) 0.1, Absolute Neuts (auto) 5.7, Absolute Lymphs (auto) 0.97, Nucleated RBC % 0, Sodium 140, Potassium 4.0, Chloride 105, Carbon Dioxide 27.0, Anion Gap 8, BUN 20 H, Creatinine 0.78, Estim Creat Clear Calc 68.51, Est GFR (MDRD) Af Amer 94, Est GFR (MDRD) Non-Af 78, BUN/Creatinine Ratio 25.5 H, Glucose 178 H, Calcium 10.0 Micro: Microbiology 09/28/24 13:28 Mucosa - Nose SARS-CoV-2, Influenza & RSV (PCR) - Final 09/28/24 20:05 Mucosa - Nasopharyngeal Respiratory Panel (PCR) - Final Radiography Diagnostic Testing: Radiology Impression Chest X-Ray 09/28/24 13:40 IMPRESSION: No acute cardiopulmonary disease. Electronically Signed: Ross Denton MD at 14:37 EST Reading Location ID and State: [address] [place] [address] Tel , Service support , Physical Exam Narrative GENERAL: cooperative HEENT: Atraumatic; normocephalic EYES; Anicteric, Normal Conjunctiva NECK; supple, normal thyroid, RESPIRATORY: Diminished to auscultation with bilateral wheezes CARDIOVASCULAR: Regular S1 S2, GI: soft, normoactive bowel sounds, : No Renal angle tenderness; EXTREMITIES: No edema, no clubbing, MUSCULOSKELETAL: no muscle wasting NEURO: Awake; no lateralizing signs. SKIN: No Rash PSYCH; Flat affect Assessment & Plan Assessment/Plan (1) COPD exacerbation: PLAN: Plan Patient is a 68-year-old lady who presented with shortness of breath diagnosed with COPD with acute exacerbation admitted to regular nursing floor for further management 1. COPD with acute exacerbation ? Patient started on bronchodilator treatment, systemic steroid as well as antibiotic therapy. Patient placed on oxygen titrated to keep saturation greater than 90. 2. Chronic congestive heart failure with reduced ejection fraction ? Last echo from 2022 demonstrated EF of 30 to 35%. Patient is on guideline directed medical therapy currently not in exacerbation 3. History of LV thrombus ? January 2023 patient was treated with Xarelto 4. Peripheral arterial disease ? Patient is on antiplatelet therapy as well as statin therapy 5. Class II obesity with BMI of 36.4 ? Weight loss advised 6. Dyslipidemia ?Patient is on statin therapy, continued at home dose 7. Hypertension ? Blood pressure controlled, home medications continued with dose adjustment as needed 8. Depression with anxiety - did continue patient home medication regimen 9. Chronic pain syndrome ? Did continue patient home pain medication regimen 10. Hyperglycemia ? Due to concomitant use of steroid we will continue to monitor 11. DVT prophylaxis ? Subcu Lovenox Time spent in the patient's overall evaluation,decision-making process, review of diagnostic data, adjustment of management, discussion with other providers, nursing nursing and ancillary staff involved in patient's care documentation,52 Minutes Charges/Coding Visit Charges Inpatient E&M: 78239 [facility] Hosp L3
[2024-09-29] MEDS: Amiodarone 200 MG Tablet PO (09:43)
[2024-09-29] MEDS: Polyethylene Glycol 3350 17 GM PACKET PO ×2 (09:44→21:01)
[2024-09-29] MEDS: Azithromycin 250 MG Tablet 500 MG PO (09:45)
[2024-09-29] MEDS: guaiFENesin 1,200 MG Tablet 1200 MG PO ×2 (09:45→21:01)
[2024-09-29] MEDS: Clopidogrel Bisulfate 75 MG Tablet PO (09:45)
[2024-09-29] MEDS: oxyCODONE HCl Cr 10 MG Tablet PO ×2 (09:47→21:01)
--- NOTE | 2024-09-29 15:19 | CASEMGMT ---
Social Work SW recevied referral from ED SW that pt would like to complete AD. SW met with pt and introduced self and role of SW. Pt denies wanting to completed AD at this time and denies additional information. BORIS Kidd
[2024-09-29] MEDS: MELATONIN 3 MG TABLET PO (21:01)
[2024-09-29] MEDS: Atorvastatin Calcium 40 MG Tablet PO (21:01)
[2024-09-30] MEDS: Gabapentin 400 MG Capsule PO ×2 (01:14→05:14)
[2024-09-30] MEDS: HYDROcodone Bitartrate/Apap 5/325 Tablet PO ×3 (01:15→08:45)
[2024-09-30 01:16] VITALS: BP 124/81; PULSE 85; RESP 16; TEMP 36.4; O2SAT 92
[2024-09-30] MEDS: Furosemide 20 MG Tablet PO (05:16)
[2024-09-30 05:18] VITALS: BP 148/91; PULSE 78; RESP 16; TEMP 36.5; O2SAT 95
[2024-09-30 05:19] VITALS: O2SAT 95
[2024-09-30 05:26] VITALS: BMI 36.3
[2024-09-30 06:22] LABS: Absolute Lymphocyte Count 1.38 X10^3/uL (0.83-4.51); Absolute Neutrophil Count 13.6 X10^3/uL (2.0-7.7); Basophil# 0.02 X10^3/uL; Basophil% 0.1 % (0-1); Hematocrit 40.9 % (37-47); Hemoglobin 13.3 g/dL (12.0-15.0); Lymphocyte # 1.38 X10^3/ul (0.83-4.51); Mean Corp Hgb Conc 32.5 g/dL (32-36); Mean Corpuscular Hgb 31.1 pg (27.0-32.0); Mean Corpuscular Volume 95.6 fL (81-99); Mean Platelet Vol. 9.3 fl (6.2-12.0); Monocyte# 0.35 X10^3/uL; Monocyte% 2.3 % (0-10); NRBC Flagged by Analyzer 0 % (0-5); Neutrophil # 13.56 X10^3/uL (2.7-7.7); Platelet Count 242 K/mm3 (150-450); RBC Distribution Width CV 12.9 % (11.6-14.6); Red Blood Count 4.28 M/mm3 (4.2-5.4); White Blood Count 15.4 K/mm3 (4.4-11.0)
[2024-09-30 07:00] VITALS: PULSE 84; RESP 20; O2SAT 94
[2024-09-30] MEDS: Ipratropium/Albuterol Sulfate 3 ML AMPUL.NEB INHALATION (07:00)
[2024-09-30] MEDS: Sucralfate 1 GM Tablet PO ×2 (07:01→11:01)
[2024-09-30] MEDS: LORazepam 1 MG Tablet PO (07:01)
--- NOTE | 2024-09-30 07:24 | PCM.PN.HOSP ---
Reason for Visit Reason for Visit: Diagnoses Chronic obstructive pulmonary disease with (acute) exacerbation (09/28/24) Subjective Subjective Patient seen breathing much improved. Plan is for patient to be assessed for possible discharge after home O2 assessment Objective Data Objective Data Vital Signs: Vital Signs Temp Pulse Resp BP Pulse Ox O2 Del Method O2 Flow Rate 97.7 F L 78 16 148/91 H 95 Nasal Cannula 2 09/30/24 05:18 09/30/24 05:18 09/30/24 05:18 09/30/24 05:18 09/30/24 05:19 09/30/24 05:19 09/30/24 05:19 Oxygen Flow Rate (L/min) 2 Oxygen Delivery Method Nasal Cannula Weight: 87.2 kg Body Mass Index (BMI) 36.3 Intake & Output: Intake and Output for Last 24 Hours 09/28/24 09/29/24 09/30/24 23:59 23:59 23:59 Intake Total 350 / 550 350 / 350 Balance 350 / 550 350 / 350 Lab / Micro Data 09/30/24 05:36 09/30/24 05:36 Labs: Laboratory Results - last 24 hr 09/30/24 05:36: WBC 15.4 H, RBC 4.28, Hgb 13.3, Hct 40.9, MCV 95.6, MCH 31.1, MCHC 32.5, RDW Std Deviation 45.0 H, RDW Coeff of Sariah 12.9, Plt Count 242, MPV 9.3, Immature Gran % (Auto) 0.600, Neut % (Auto) 88.0 H, Lymph % (Auto) 9.0 L, [place] % (Auto) 2.3, Eos % (Auto) 0.0, Baso % (Auto) 0.1, Absolute Neuts (auto) 13.6 H, Absolute Lymphs (auto) 1.38, Nucleated RBC % 0 Micro: Microbiology 09/28/24 13:28 Mucosa - Nose SARS-CoV-2, Influenza & RSV (PCR) - Final 09/28/24 20:05 Mucosa - Nasopharyngeal Respiratory Panel (PCR) - Final Physical Exam Narrative GENERAL: cooperative HEENT: Atraumatic; normocephalic EYES; Anicteric, Normal Conjunctiva NECK; supple, normal thyroid, RESPIRATORY: Diminished to auscultation with bilateral wheezes CARDIOVASCULAR: Regular S1 S2, GI: soft, normoactive bowel sounds, : No Renal angle tenderness; EXTREMITIES: No edema, no clubbing, MUSCULOSKELETAL: no muscle wasting NEURO: Awake; no lateralizing signs. SKIN: No Rash PSYCH; Flat affect Assessment & Plan Assessment/Plan (1) COPD exacerbation: PLAN: Plan Patient is a 68-year-old lady who presented with shortness of breath diagnosed with COPD with acute exacerbation admitted to regular nursing floor for further management 1. COPD with acute exacerbation ? Patient started on bronchodilator treatment, systemic steroid as well as antibiotic therapy. Patient placed on oxygen titrated to keep saturation greater than 90. ? 09/30/2024; patient responded to treatment plan is for patient to be discharged home after home O2 oxygen 2. Chronic congestive heart failure with reduced ejection fraction ? Last echo from 2022 demonstrated EF of 30 to 35%. Patient is on guideline directed medical therapy currently not in exacerbation 3. History of LV thrombus ? January 2023 patient was treated with Xarelto 4. Peripheral arterial disease ? Patient is on antiplatelet therapy as well as statin therapy 5. Class II obesity with BMI of 36.4 ? Weight loss advised 6. Dyslipidemia ?Patient is on statin therapy, continued at home dose 7. Hypertension ? Blood pressure controlled, home medications continued with dose adjustment as needed 8. Depression with anxiety - did continue patient home medication regimen 9. Chronic pain syndrome ? Did continue patient home pain medication regimen 10. Hyperglycemia ? Due to concomitant use of steroid we will continue to monitor 11. DVT prophylaxis ? Subcu Lovenox Time spent in the patient's overall evaluation,decision-making process, review of diagnostic data, adjustment of management, discussion with other providers, nursing nursing and ancillary staff involved in patient's care documentation, 35 Minutes
[2024-09-30 07:34] LABS: Anion Gap 4 (5-15); BUN 26 mg/dL (7-18); BUN/Creat Ratio 38.9 RATIO (10-20); Calcium,Total 10.1 mg/dL (8.5-10.1); Chloride 104 mmol/L (98-107); Creatinine, Serum 0.67 mg/dL (0.55-1.02); EST Glomerular Filtration Rate 93 mL/min (>60); Est Glom Filt Rate - Afr Amer 113 mL/min (>60); Estimated Creatinine Clearance 68.47 ml/min; Glucose 137 mg/dL (74-106); Magnesium 2.2 mg/dL (1.6-2.6); Phosphorus 3.9 mg/dL (2.5-4.9); Potassium 4.2 mmol/L (3.5-5.1); Sodium Level 139 mmol/L (136-145)
[2024-09-30 08:28] VITALS: BP 138/84; PULSE 81; RESP 18; TEMP 36.8; O2SAT 94
--- NOTE | 2024-09-30 08:31 | PCM.DC.SUM ---
Providers Date of Admission: 09/28/24 Date of Discharge: 09/30/24 Primary Care Physician: Dr. Sandy Barbosa MD Reason For Visit: COPD EXACERBATION Diagnosis Discharge Diagnosis (1) COPD exacerbation: Status: Chronic Code(s): J44.1 - Chronic obstructive pulmonary disease with (acute) exacerbation Plan Patient is a 68-year-old lady who presented with shortness of breath diagnosed with COPD with acute exacerbation admitted to regular nursing floor for further management 1. COPD with acute exacerbation ? Patient started on bronchodilator treatment, systemic steroid as well as antibiotic therapy. Patient placed on oxygen titrated to keep saturation greater than 90. ? 09/30/2024; patient responded to treatment plan is for patient to be discharged home after home O2 oxygen ? I have reviewed the oxygen testing, and this patient qualifies for the home equipment and portability. The patient is mobile in the home and the community. 2. Chronic congestive heart failure with reduced ejection fraction ? Last echo from 2022 demonstrated EF of 30 to 35%. Patient is on guideline directed medical therapy currently not in exacerbation 3. History of LV thrombus ? January 2023 patient was treated with Xarelto 4. Peripheral arterial disease ? Patient is on antiplatelet therapy as well as statin therapy 5. Class II obesity with BMI of 36.4 ? Weight loss advised 6. Dyslipidemia ?Patient is on statin therapy, continued at home dose 7. Hypertension ? Blood pressure controlled, home medications continued with dose adjustment as needed 8. Depression with anxiety - did continue patient home medication regimen 9. Chronic pain syndrome ? Did continue patient home pain medication regimen 10. Hyperglycemia ? Due to concomitant use of steroid we will continue to monitor 11. DVT prophylaxis ? Subcu Lovenox Time spent in the patient's overall evaluation,decision-making process, review of diagnostic data, adjustment of management, discussion with other providers, nursing nursing and ancillary staff involved in patient's care documentation, 35 Minutes Medications at Discharge Home Medications clopidogrel 75 mg tablet (Plavix) 75 mg PO DAILY 30 days #30 tabs 01/04/23 inhalational spacing device (Aerochamber MV spacer) #1 ea 02/17/23 tiotropium bromide 2.5 mcg/actuation mist for inhalation (Spiriva Respimat) 2 puff inhalation DAILY #4 grams 02/17/23 lorazepam 1 mg tablet (Ativan) 1 mg PO TID PRN anxiety 07/16/23 amiodarone 200 mg tablet 200 mg PO DAILY 07/22/23 furosemide 20 mg tablet 20 mg PO Q12H 07/29/23 gabapentin 400 mg capsule 400 mg PO Q6H 07/29/23 nitroglycerin 0.4 mg sublingual tablet 0.4 mg buccal Q5M PRN chest pain 07/29/23 sucralfate 1 gram tablet 1 g PO Q8H 07/29/23 albuterol sulfate 2.5 mg/3 mL (0.083 %) solution for nebulization 2.5 mg continuous nebulization Q6H PRN shortness of breath or wheezing 09/05/23 melatonin 3 mg capsule 3 mg PO QHS 09/05/23 carvedilol 12.5 mg tablet (Coreg) 12.5 mg PO BID #60 tabs 07/07/24 albuterol 90 mcg-budesonide 80 mcg/actuation HFA aerosol inhaler (Airsupra) 1 - 2 inh inhalation BID PRN shortness of breath 09/28/24 atorvastatin 40 mg tablet 40 mg PO QHS 09/28/24 bisacodyl 5 mg tablet,delayed release 5 mg PO DAILY PRN constipation 09/28/24 cholecalciferol (vitamin D3) 125 mcg (5,000 unit) capsule 125 mcg PO DAILY 09/28/24 hydrocodone-acetaminophen 5-325mg 5mg-325mg 1 tab PO Q4H 09/28/24 lisinopril 5 mg tablet 5 mg PO DAILY 09/28/24 oxycodone myristate 18 mg capsule sprinkle extended release 12hr(DON'T CRUSH) (Xtampza ER) 18 mg PO BID 09/28/24 polyethylene glycol 3350 17 gram/dose oral powder 17 g PO BID 09/28/24 potassium chloride 20 mEq tablet,extended release(part/cryst) 20 meq PO DAILY 09/28/24 promethazine 25 mg tablet 25 mg PO PRN PRN nausea and vomiting 09/28/24 albuterol sulfate 90 mcg/actuation aerosol inhaler 2 puff inhalation Q6H PRN shortness of breath or wheezing #8.5 grams 09/30/24 budesonide-formoterol HFA 160 mcg-4.5 mcg/actuation aerosol inhaler (Symbicort) 1 puff inhalation BID #10.2 grams 01/24/25 doxycycline hyclate 100 mg capsule 100 mg PO BID #14 caps 09/30/24 guaifenesin 1,200 mg tablet, extended release 12 hr (Mucus Relief ER) 1,200 mg PO BID #30 tabs 09/30/24 prednisone 20 mg tablet 20 mg PO BID #10 tabs 09/30/24 Physical Exam Narrative GENERAL: cooperative HEENT: Atraumatic; normocephalic EYES; Anicteric, Normal Conjunctiva NECK; supple, normal thyroid, RESPIRATORY: Diminished to auscultation no wheezes CARDIOVASCULAR: Regular S1 S2, GI: soft, normoactive bowel sounds, : No Renal angle tenderness; EXTREMITIES: No edema, no clubbing, MUSCULOSKELETAL: no muscle wasting NEURO: Awake; no lateralizing signs. SKIN: No Rash PSYCH; Flat affect Weight / BMI Weight Weight: 87.2 kg Body Mass Index (BMI) 36.3 ABG / Lab / Microbiology Data 09/30/24 05:36 09/30/24 05:36 Laboratory: Laboratory Results - last 24 hr 09/30/24 05:36: WBC 15.4 H, RBC 4.28, Hgb 13.3, Hct 40.9, MCV 95.6, MCH 31.1, MCHC 32.5, RDW Std Deviation 45.0 H, RDW Coeff of Sariah 12.9, Plt Count 242, MPV 9.3, Immature Gran % (Auto) 0.600, Neut % (Auto) 88.0 H, Lymph % (Auto) 9.0 L, [place] % (Auto) 2.3, Eos % (Auto) 0.0, Baso % (Auto) 0.1, Absolute Neuts (auto) 13.6 H, Absolute Lymphs (auto) 1.38, Nucleated RBC % 0, Sodium 139, Potassium 4.2, Chloride 104, Carbon Dioxide 31.0, Anion Gap 4 L, BUN 26 H, Creatinine 0.67, Estim Creat Clear Calc 68.47, Est GFR (MDRD) Af Amer 113, Est GFR (MDRD) Non-Af 93, BUN/Creatinine Ratio 38.9 H, Glucose 137 H, Calcium 10.1, Phosphorus 3.9, Magnesium 2.2 Microbiology: Microbiology 09/28/24 13:28 Mucosa - Nose SARS-CoV-2, Influenza & RSV (PCR) - Final 09/28/24 20:05 Mucosa - Nasopharyngeal Respiratory Panel (PCR) - Final D/C Instructions Discharge Diet: 8 Cup Fluid Restriction and 2000 mg Sodium Diet Discharge Activity: Return to Normal Activity Call your doctor if you observe: Fever of 101 or Higher, Shortness of breath, Fainting spells and Chest pain DC O2, CPAP, BIPAP Needs RN Home O2 Qualification: Home O2 Qualification: Is the patient on home oxygen No 09/30/24 08:49 Home O2 Qualification: AT REST 1- Pulse Ox at rest 86 09/30/24 08:49 2- Pulse Ox at rest 93 09/30/24 08:49 2- Oxygen Flow Rate at rest 2 09/30/24 08:49 Home O2 Qualification: WITH AMBULATION 1- Pulse Ox with ambulation 93 09/30/24 08:49 1- Oxygen Flow Rate with 2 09/30/24 08:49 ambulation Home O2 Discharge instructions: Yes Type of respiratory needs?: Oxygen Oxygen frequency: Continuous Continuous oxygen liters per minute: 2l DC home with Oxygen: Yes Home O2 MD Review: I have reviewed the oxygen testing, and the patient qualifies for home oxygen equipment and portability. The patient is mobile in the home and the community. Meaningful Use Info Meaningful Use Meaningful Use Diagnoses (Choose all that apply): None applicable Ischemic Stroke Statin Dosing Therapy Reference: STATIN DOSE THERAPY REFERENCE: * Patients > 75 years receive moderate or high dose statin therapy. * Patients 75 years or YOUNGER should receive HIGH intensity statin dose unless contraindicated. You will be required to document reason for non-treatment if statin daily dose does not meet guidelines. HIGH DOSE STATIN THERAPY DAILY Atorvastatin > than or = to 40 mg Rosuvastatin > than or = to 20 mg Amlodipine + Atorvastatin > than or = to 2.5/40 mg Ezetimibe + Simvastatin 10/80 mg Simvastatin 80mg Discharge Plan Admission Admit Date/Time: 09/28/24 16:40 Attending Provider: Jones Gregory Primary Care Provider: Sandy Barbosa Consulting Providers: Gloria Madrid Discharge Orders/Prescriptions Prescriptions: New guaifenesin [Mucus Relief ER] 1,200 mg Tablet Extended Release 12hr 1,200 mg PO BID Qty: 30 0RF prednisone 20 mg tablet 20 mg PO BID Qty: 10 0RF doxycycline hyclate 100 mg capsule 100 mg PO BID Qty: 14 0RF Continued Spiriva Respimat 2.5 mcg/actuation mist 2 puff inhalation DAILY Qty: 4 11RF (DME) Aerochamber MV Spacer See Rx Instructions .ROUTE .MEDSUPPLY Qty: 1 0RF Rx Instructions: As directed lorazepam [Ativan] 1 mg tablet 1 mg PO TID PRN (Reason: anxiety) clopidogrel [Plavix] 75 mg tablet 75 mg PO DAILY 30 Days Qty: 30 0RF albuterol sulfate 2.5 mg /3 mL (0.083 %) solution for nebulization 2.5 mg continuous nebulization Q6H PRN (Reason: shortness of breath or wheezing) melatonin 3 mg capsule 3 mg PO QHS amiodarone 200 mg tablet 200 mg PO DAILY gabapentin 400 mg capsule 400 mg PO Q6H furosemide 20 mg tablet 20 mg PO Q12H nitroglycerin 0.4 mg tablet, sublingual 0.4 mg buccal Q5M PRN (Reason: chest pain) sucralfate 1 gram tablet 1 g PO Q8H promethazine 25 mg tablet 25 mg PO PRN PRN (Reason: nausea and vomiting) Xtampza ER 18 mg cap,sprinkl,ER12hr(DONT CRUSH) 18 mg PO BID Patient Comments: [NO ORIGINAL SIG] hydrocodone-acetaminophen 5-325 mg tablet 1 tab PO Q4H Airsupra 90-80 mcg/actuation HFA aerosol inhaler 1 - 2 inh INHALATION BID PRN (Reason: shortness of breath) Patient Comments: [NO ORIGINAL SIG] atorvastatin 40 mg tablet 40 mg PO QHS bisacodyl 5 mg tablet,delayed release (DR/EC) 5 mg PO DAILY PRN (Reason: constipation) Patient Comments: [NO ORIGINAL SIG] polyethylene glycol 3350 17 gram/dose powder 17 g PO BID cholecalciferol (vitamin D3) 125 mcg (5,000 unit) capsule 125 mcg PO DAILY lisinopril 5 mg tablet 5 mg PO DAILY potassium chloride 20 mEq tablet,ER particles/crystals 20 meq PO DAILY albuterol sulfate 90 mcg/actuation HFA aerosol inhaler 2 puff inhalation Q6H MDD 10 puffs PRN (Reason: shortness of breath or wheezing) Qty: 8.5 6RF Rx Instructions: This inhaler must be used with a spacer device. budesonide-formoterol [Symbicort] 160-4.5 mcg/actuation HFA aerosol inhaler 1 puff inhalation BID Qty: 10.2 0RF carvedilol [Coreg] 12.5 mg tablet 12.5 mg PO BID Qty: 60 0RF Rx Instructions: must administer with a meal/food Referrals / Follow Up: Sandy Barbosa MD [Primary Care Provider] - Within 1 Week Disposition Disposition (needs filled in before D/C Order can be placed): Home, Self Care Charges/Coding Visit Charges Inpatient E&M: [id number] Disch Hosp >30min
[2024-09-30] MEDS: Carvedilol 3.125 MG TABLET PO (08:45)
[2024-09-30] MEDS: Potassium Chloride Oral Tablet 20 MEQ PO (08:45)
[2024-09-30 08:49] VITALS: O2SAT 86; O2SAT 93
--- NOTE | 2024-09-30 09:37 | CASEMGMT ---
Addendum entered by Dillon Yuan 09/30/24 09:47: [place] [facility] [place] and will deliver the equipment shortly. Original Note: Pt has an order for DC placed. Per the tafe lecturer, pt qualifies for home oxygen (2L Cont.). RN CM to pt room at this time. A verbal list of local in-network DME companies were provided to the pt at this time. Pt prefers [facility].?Rx signed by Dr. Gregory. Rx, O2 testing, and [place] [facility] [place] [facility] at this time.
[2024-09-30] MEDS: Amiodarone 200 MG Tablet PO (11:00)
[2024-09-30] MEDS: Enoxaparin 40 MG/0.4 ML Syringe SC (11:00)
[2024-09-30] MEDS: oxyCODONE HCl Cr 10 MG Tablet PO (11:01)
[2024-09-30] MEDS: Azithromycin 250 MG Tablet 500 MG PO (11:01)
[2024-09-30] MEDS: Clopidogrel Bisulfate 75 MG Tablet PO (11:01)
--- NOTE | 2024-09-30 11:06 | NURSING ---
Pt decided that she did not want mucinex after this RN opened the medication. Disposed of the medication in the med room bin .
== END 2024-09-30 11:47 | disposition home or self-care (01) | DRG 191 ==
LOC: ED 16:31 → MS3 17:13
PROVIDERS: Admitting Provider Internal Medicine; Emergency Provider Emergency Medicine; PCP Internal Medicine; Visit Provider Internal Medicine
DX: J44.1 Chronic obstructive pulmonary disease with (acute) exacerbation (principal); I50.22 Chronic systolic (congestive) heart failure; E66.812 Obesity, class 2; I11.0 Hypertensive heart disease with heart failure; I73.9 Peripheral vascular disease, unspecified; F32.A Depression, unspecified; E78.5 Hyperlipidemia, unspecified; F41.9 Anxiety disorder, unspecified; F17.210 Nicotine dependence, cigarettes, uncomplicated; G89.4 Chronic pain syndrome; R09.02 Hypoxemia; Z68.36 Body mass index [BMI] 36.0-36.9, adult; Z79.02 Long term (current) use of antithrombotics/antiplatelets; Z79.51 Long term (current) use of inhaled steroids; Z79.899 Other long term (current) drug therapy; Z86.718 Personal history of other venous thrombosis and embolism; Z86.73 Personal history of transient ischemic attack (TIA), and cerebral infarction without residual deficits
CPT/HCPCS: 36415; 71045; 80048; 83735; 83880; 84100; 84484; 85025; 87631; 87633; 93005; 94640; 94668; 97802; 99285; A4216

== ENCOUNTER 2024-11-04 22:43 | Emergency (ER) | payer MEDICARE, MEDICAID, SELFPAY ==
[2024-11-04] VITALS (10 sets, daily range): BP systolic 116–134; BP diastolic 69–105; PULSE 64–72; RESP 13–26; TEMP 37.1; O2SAT 93–97; BMI 37.5
--- NOTE | 2024-11-04 22:58 | EKG12_ITS ---
Test Reason : DYSRHYTHMIA Blood Pressure : */* mmHG Vent. Rate : 66 BPM Atrial Rate : 66 BPM P-R Int : 136 ms QRS Dur : 102 ms QT Int : 404 ms P-R-T Axes : 53 17 81 degrees QTcB Int : 423 ms Normal sinus rhythm Septal infarct , age undetermined Possible Lateral infarct , age undetermined Abnormal ECG Confirmed by Brown Ann ([id number]), deputy editor in chief MICHA SALMERON ([id number]) on 11/07/2024 10:50:22 AM Referred By: Confirmed By: Brown Ann
--- NOTE | 2024-11-04 22:59 | EX.ED.DYSGE1 ---
HPI History of Present Illness Chief Complaint: Shortness of Breath Informant: patient and EMS Narrative Narrative: This 68-year-old female lives in assisted living, she has COPD and is on 2 L nasal cannula chronically. She has had no acute symptoms today, but [facility] staff at the assisted living checked her vital signs routinely and they noted that her pulse ox was in the low 80s while she had her nasal cannula in. They called EMS who put her on their own oxygen 2 L and she immediately came up into the 90s. No change in any of her chronic symptoms, mild dyspnea, and she states she has chronic discomfort in her chest only when she swallows. It is not there presently since she is not swallowing. She denies any other new symptoms. She states she has a large concentrator that she had on which apparently is not working and staff was aware of that but sent her for evaluation anyway. She states she has a small concentrator that is there in her home/room, she uses it when she goes out which she does not do very often, and they are aware that she has that there is well but still wanted her to come to the ED to get evaluated. Additionally the patient states that her son is staying with her at the assisted living room [facility], and he is currently there. [facility] Medical History Chronic pain Kidney disease Asthma Irregular heart beat Congestive heart failure (CHF) TIA (transient ischemic attack) Wears glasses Post-menopausal Arthritis History of renal disease High cholesterol DVT (deep venous thrombosis) Easy bruising Excessive bleeding Back pain Injury of back History of ulceration Difficulty chewing Gastric reflux Shortness of breath on exertion Hoarseness Chronic cough Leg cramps History of pain when walking History of edema History of echocardiogram History of stress test Cardiology follow-up encounter History of CHF (congestive heart failure) History of irregular heartbeat Chest pain Bullous emphysema COPD with asthma Esophagitis, unspecified without bleeding Unspecified combined 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 Other chronic pain Elevated troponin Sustained SVT Depression Osteoporosis Kidney stones Smoker Myocardial infarct History of non-ST elevation myocardial infarction (NSTEMI) (09/01/21) Essential hypertension Old anterior wall myocardial infarction Ischemic cardiomyopathy Opiate dependence Anxiety and depression TIA (transient ischemic attack) Obesity (BMI 30.0-34.9) EVELYN (obstructive sleep apnea) Personal history of transient ischemic attack (TIA), and cerebral infarction without residual deficits COPD (chronic obstructive pulmonary disease) Calculus of left kidney GERD (gastroesophageal reflux disease) Hyperlipidemia Atherosclerotic heart disease of [place] coronary artery without angina pectoris Tobacco abuse Home Medications ?Medication ?Instructions ?Recorded ?Last Taken ?Type inhalational spacing device #1 ea 02/17/23 Unknown Rx (Aerochamber MV spacer) tiotropium bromide 2.5 2 puff inhalation DAILY #4 grams 02/17/23 09/27/24 Rx mcg/actuation mist for inhalation (Spiriva Respimat) lorazepam 1 mg tablet (Ativan) 1 mg PO TID PRN anxiety 07/16/23 09/27/24 History gabapentin 400 mg capsule 400 mg PO Q6H 07/29/23 09/27/24 History nitroglycerin 0.4 mg sublingual 0.4 mg buccal Q5M PRN chest pain 07/29/23 Unknown History tablet sucralfate 1 gram tablet 1 g PO Q8H 07/29/23 09/27/24 History albuterol sulfate 2.5 mg/3 mL 2.5 mg continuous nebulization Q6H 09/05/23 Unknown History (0.083 %) solution for nebulization PRN shortness of breath or wheezing melatonin 3 mg capsule 3 mg PO QHS 09/05/23 09/27/24 History albuterol 90 mcg-budesonide 80 1 - 2 inh inhalation BID PRN 09/28/24 09/27/24 History mcg/actuation HFA aerosol inhaler shortness of breath (Airsupra) atorvastatin 40 mg tablet 40 mg PO QHS 09/28/24 09/27/24 History bisacodyl 5 mg tablet,delayed 5 mg PO DAILY PRN constipation 09/28/24 Unknown History release cholecalciferol (vitamin D3) 125 125 mcg PO DAILY 09/28/24 09/27/24 History mcg (5,000 unit) capsule hydrocodone-acetaminophen 5-325mg 1 tab PO Q4H 09/28/24 09/27/24 History 5mg-325mg lisinopril 5 mg tablet 5 mg PO DAILY 09/28/24 09/27/24 History oxycodone myristate 18 mg capsule 18 mg PO BID 09/28/24 09/27/24 History sprinkle extended release 12hr(DON'T CRUSH) (Xtampza ER) polyethylene glycol 3350 17 17 g PO BID 09/28/24 09/27/24 History gram/dose oral powder promethazine 25 mg tablet 25 mg PO PRN PRN nausea and 09/28/24 Unknown History vomiting albuterol sulfate 90 mcg/actuation 2 puff inhalation Q6H PRN 09/30/24 Unknown Rx aerosol inhaler shortness of breath or wheezing #8.5 grams budesonide-formoterol HFA 160 1 puff inhalation BID #10.2 grams 09/30/24 Unknown Rx mcg-4.5 mcg/actuation aerosol inhaler (Symbicort) doxycycline hyclate 100 mg capsule 100 mg PO BID #14 caps 09/30/24 Unknown Rx guaifenesin 1,200 mg tablet, 1,200 mg PO BID #30 tabs 09/30/24 Unknown Rx extended release 12 hr (Mucus Relief ER) prednisone 20 mg tablet 20 mg PO BID #10 tabs 09/30/24 Unknown Rx carvedilol 25 mg tablet 25 mg PO BID #120 tabs 10/04/24 Unknown Rx furosemide 40 mg tablet 40 mg PO QDAY #90 tabs 10/04/24 Unknown Rx Allergy/AdvReac Type Severity Reaction Status Date / Time No Known Allergies Allergy Verified 11/04/24 22:45 Family History Mother Hypertension CAD (coronary artery disease) CVA (cerebral vascular accident) Myocardial infarction Grandmother Myocardial infarction Surgical History History of cholecystectomy Hx of esophagogastroduodenoscopy History of cardiac catheterization History of hysterectomy History of left heart catheterization (01/20/22) History of total hysterectomy Hx of appendectomy Social History household members: none Smoking Status: Current some day smoker tobacco type: cigarettes alcohol intake: never substance use type: does not use ROS ROS ED Constitutional Constitutional ED: Denies chills or fever(s) Eyes Eyes: Denies change in vision or diplopia ENT ENT ED: Denies rhinorrhea or sore throat Cardiovascular Cardiovascular: Denies chest pain or palpitations Respiratory/Chest Respiratory/Chest: Reports dyspnea on exertion; Denies cough Gastrointestinal Gastrointestinal: Denies abdominal pain, diarrhea, nausea or vomiting Genitourinary Genitourinary ED: Denies dysuria or hematuria Musculoskeletal Musculoskeletal: Denies back pain or neck pain Integumentary Denies abscess or rash Neurologic Neurologic: Denies headache(s), paresthesias or weakness Psychiatric Psychiatric: Reports anxiety EXAM Physical Exam Const Vital Signs: 11/04/24 22:45 11/04/24 22:48 11/04/24 22:49 Temperature 98.7 F 98.7 F Temperature Source Oral Oral Pulse Rate 72 70 Respiratory Rate 22 H 18 Respiratory Effort Respiratory Depth Respiratory Pattern Blood Pressure 131/79 H 131/69 H 131/69 H Blood Pressure Mean 96 87 89 Pulse Ox 93 93 Oxygen Delivery Method Nasal Cannula Nasal Cannula Oxygen Flow Rate (L/min) 2 2 11/04/24 22:49 11/04/24 22:50 11/04/24 23:00 Temperature Temperature Source Pulse Rate 70 65 Respiratory Rate 14 13 Respiratory Effort Short of Breath Respiratory Depth Shallow Respiratory Pattern Normal Blood Pressure 118/73 Blood Pressure Mean 86 Pulse Ox 93 94 Oxygen Delivery Method Nasal Cannula Oxygen Flow Rate (L/min) 2 11/04/24 23:07 11/04/24 23:15 11/04/24 23:23 Temperature Temperature Source Pulse Rate 68 Respiratory Rate 18 Respiratory Effort Respiratory Depth Respiratory Pattern Blood Pressure 117/72 Blood Pressure Mean 87 Pulse Ox 94 93 Oxygen Delivery Method Nasal Cannula Oxygen Flow Rate (L/min) 2 11/04/24 23:30 11/04/24 23:45 11/05/24 00:00 Temperature Temperature Source Pulse Rate 66 64 62 Respiratory Rate 17 26 H 22 H Respiratory Effort Respiratory Depth Respiratory Pattern Blood Pressure 116/78 134/105 H 128/80 H Blood Pressure Mean 91 115 91 Pulse Ox 96 97 98 Oxygen Delivery Method Nasal Cannula Oxygen Flow Rate (L/min) 2 11/05/24 00:15 11/05/24 00:30 11/05/24 00:45 Temperature Temperature Source Pulse Rate 61 62 63 Respiratory Rate 23 H 23 H 26 H Respiratory Effort Respiratory Depth Respiratory Pattern Blood Pressure 131/70 H 128/61 H 129/74 H Blood Pressure Mean 90 82 91 Pulse Ox 98 98 98 Oxygen Delivery Method Room Air Nasal Cannula Oxygen Flow Rate (L/min) 2 2 11/05/24 02:00 Temperature Temperature Source Pulse Rate 69 Respiratory Rate 19 H Respiratory Effort Respiratory Depth Respiratory Pattern Blood Pressure 144/89 H Blood Pressure Mean 107 Pulse Ox 95 Oxygen Delivery Method Nasal Cannula Oxygen Flow Rate (L/min) 2 Positive well nourished and well developed General Appearance ED: well developed and NAD HEENT Reports moist mucous membranes normocephalic and atraumatic Eyes PERRL and EOMs intact bilaterally Neck full ROM and supple Resp normal respiratory effort Resp Narrative: Diffuse inspiratory and expiratory wheezes mild, symmetric, no respiratory distress, conversive in full sentences. Some high-pitched rhonchi in the bases. Symmetric. Cardio regular rate, regular rhythm and no murmurs GI non-tender and non-distended Auscultation: normoactive bowel sounds Palpation: soft Back/Spine no CVA tenderness General Back: other FROM Extremity normal to inspection General Extremety ED: Negative for edema, pulses abnormal or tenderness General Extremity: Negative for edema or pulses abnormal Neuro oriented x3, CN's II-XII intact bilaterally and no sensory deficits noted Sensorium / Orientation: awake and alert Motor Exam: strength 5/5 throughout Skin no rashes or lesions noted and no wounds MDM MDM MDM Narrative Medical decision making narrative: Patient's vital signs are normal, she has some wheezing but is conversing in full sentences and admits that she is at her baseline as far as her COPD chronic symptoms. Given that she was hypoxic for an unclear period of time, I am assessing for endorgan damage such as myocardial infarction in addition to obtaining a chest x-ray given her wheezing. EKG shows no acute injury pattern or signs of repolarization abnormality that appears acute. Two-view chest x-ray shows chronic COPD but no acute pneumothorax or pneumonia or other acute abnormality. Radiology in agreement. Her labs are unremarkable including 2 sequential troponin measurements, which actually went down on the second measurement. Patient asymptomatic while here on oxygen 2 L, I had staff talk with staff at assisted living, they went to her room, found her small portable concentrator which is a different one that she was using, confirmed that it works, and delivers oxygen. Discharged back to assisted living. Lab Data Attestation: I reviewed the patient's lab results. Labs: Laboratory Results - last 24 hr 11/04/24 11/05/24 23:08 01:25 WBC 6.1 RBC 3.87 L Hgb 12.1 Hct 38.4 MCV 99.2 H MCH 31.3 MCHC 31.5 L RDW Std Deviation 48.1 H RDW Coeff of Sariah 13.2 Plt Count 172 MPV 9.1 Immature Gran % (Auto) 0.200 Neut % (Auto) 61.9 Lymph % (Auto) 28.2 [place] % (Auto) 6.9 Eos % (Auto) 2.1 Baso % (Auto) 0.7 Absolute Neuts (auto) 3.8 Absolute Lymphs (auto) 1.71 Nucleated RBC % 0 Sodium 143 Potassium 4.0 Chloride Direct 105 Carbon Dioxide 32.3 H Anion Gap 6 BUN 15 Creatinine 0.96 Estim Creat Clear Calc 58.14 Est GFR (MDRD) Non-Af 65 BUN/Creatinine Ratio 15.7 Glucose 114 H Calcium 8.9 Troponin T High Sens 12 Troponin T Hi Sens 2 Hr 10 Troponin T Hi Sens 2Hr Delta 2 Radiography Diagnostic Testing: Clinical Impression(s) from Imaging Studies Chest X-Ray 11/04/24 23:18 IMPRESSION: No radiographic evidence of acute cardiopulmonary disease [facility] Rhythm Strip Rhythm Strip: Sinus Rhythm Rate: 65 Ectopy: None EKG Initial EKG: Attestation: I personally reviewed and interpreted this EKG as follows: Interpretation: No Acute Injury Pattern and Non-Specific ST Changes (1, aVL) Prior EKG tracings: available for review Prior: Unchanged Discharge Plan Triage Chief Complaint: Shortness of Breath ED Provider: Linus Byers Dx/Rx/DC Orders 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, Hypoxemia, COPD (chronic obstructive pulmonary disease) Instructions: Discharge Instructions: COPD Prescriptions: No Action Spiriva Respimat 2.5 mcg/actuation mist 2 puff inhalation DAILY Qty: 4 11RF (DME) Aerochamber MV Spacer See Rx Instructions .ROUTE .MEDSUPPLY Qty: 1 0RF Rx Instructions: As directed lorazepam [Ativan] 1 mg tablet 1 mg PO TID PRN (Reason: anxiety) furosemide 40 mg tablet 40 mg PO QDAY Qty: 90 3RF carvedilol 25 mg tablet 25 mg PO BID Qty: 120 3RF Rx Instructions: must administer with a meal/food albuterol sulfate 2.5 mg /3 mL (0.083 %) solution for nebulization 2.5 mg continuous nebulization Q6H PRN (Reason: shortness of breath or wheezing) melatonin 3 mg capsule 3 mg PO QHS gabapentin 400 mg capsule 400 mg PO Q6H nitroglycerin 0.4 mg tablet, sublingual 0.4 mg buccal Q5M PRN (Reason: chest pain) sucralfate 1 gram tablet 1 g PO Q8H promethazine 25 mg tablet 25 mg PO PRN PRN (Reason: nausea and vomiting) Xtampza ER 18 mg cap,sprinkl,ER12hr(DONT CRUSH) 18 mg PO BID Patient Comments: [NO ORIGINAL SIG] hydrocodone-acetaminophen 5-325 mg tablet 1 tab PO Q4H Airsupra 90-80 mcg/actuation HFA aerosol inhaler 1 - 2 inh INHALATION BID PRN (Reason: shortness of breath) Patient Comments: [NO ORIGINAL SIG] atorvastatin 40 mg tablet 40 mg PO QHS bisacodyl 5 mg tablet,delayed release (DR/EC) 5 mg PO DAILY PRN (Reason: constipation) Patient Comments: [NO ORIGINAL SIG] polyethylene glycol 3350 17 gram/dose powder 17 g PO BID cholecalciferol (vitamin D3) 125 mcg (5,000 unit) capsule 125 mcg PO DAILY lisinopril 5 mg tablet 5 mg PO DAILY guaifenesin [Mucus Relief ER] 1,200 mg Tablet Extended Release 12hr 1,200 mg PO BID Qty: 30 0RF prednisone 20 mg tablet 20 mg PO BID Qty: 10 0RF doxycycline hyclate 100 mg capsule 100 mg PO BID Qty: 14 0RF albuterol sulfate 90 mcg/actuation HFA aerosol inhaler 2 puff inhalation Q6H MDD 10 puffs PRN (Reason: shortness of breath or wheezing) Qty: 8.5 6RF Rx Instructions: This inhaler must be used with a spacer device. budesonide-formoterol [Symbicort] 160-4.5 mcg/actuation HFA aerosol inhaler 1 puff inhalation BID Qty: 10.2 0RF Primary Care Provider: Sandy Barbosa Referrals: Sandy Barbosa MD [Primary Care Provider] - As Needed Activity Restrictions/Additional Instructions: Use your small portable concentrator until your larger main 1 can be evaluated and/or repaired. Print Language: Syrian Disposition Disposition: Home, Self Care
--- NOTE | 2024-11-04 23:18 | RAD_ITS ---
PROCEDURE: CHEST PA AND LATERAL REASON FOR EXAM: Hypoxia, chronic dyspnea TECHNIQUE: Frontal and lateral views of the chest. COMPARISON: 09/28/2024 FINDINGS: The heart size is normal. There are atherosclerotic calcifications of the thoracic aorta. The lungs are clear. Degenerative changes are identified within the thoracic spine. RAD/Chest PA and Lateral IMPRESSION: No radiographic evidence of acute cardiopulmonary disease Reading Location: [facility]
[2024-11-04 23:19] LABS: Absolute Lymphocyte Count 1.71 X10^3/uL (0.83-4.51); Absolute Neutrophil Count 3.8 X10^3/uL (2.0-7.7); Basophil# 0.04 X10^3/uL; Basophil% 0.7 % (0-1); Eosinophil# 0.13 X10^3/uL; Eosinophils% 2.1 % (0-5); Hematocrit 38.4 % (37-47); Hemoglobin 12.1 g/dL (12.0-15.0); Lymphocyte # 1.71 X10^3/ul (0.83-4.51); Lymphocyte % 28.2 % (19-41); Mean Corp Hgb Conc 31.5 g/dL (32-36); Mean Corpuscular Hgb 31.3 pg (27.0-32.0); Mean Corpuscular Volume 99.2 fL (81-99); Mean Platelet Vol. 9.1 fl (6.2-12.0); Monocyte# 0.42 X10^3/uL; Monocyte% 6.9 % (0-10); NRBC Flagged by Analyzer 0 % (0-5); Neutrophil # 3.76 X10^3/uL (2.7-7.7); Neutrophil % 61.9 % (47-70); Platelet Count 172 K/mm3 (150-450); RBC Distribution Width CV 13.2 % (11.6-14.6); RBC Distribution Width SD 48.1 fl (35.1-43.9); Red Blood Count 3.87 M/mm3 (4.2-5.4); White Blood Count 6.1 K/mm3 (4.4-11.0)
[2024-11-04 23:44] LABS: Troponin T High Sensitivity 12 ng/L (<=14)
[2024-11-04 23:45] LABS: Anion Gap 6 (5-15); BUN 15 mg/dL (4-19); BUN/Creat Ratio 15.7 RATIO (10-20); Calcium 8.9 mg/dL (7.6-11.0); Carbon Dioxide 32.3 mmol/L (22.0-29.0); Chloride 105 mmol/L (96-108); Creatinine, Serum 0.96 mg/dL (0.70-1.20); EST Glomerular Filtration Rate 65 (>60); Estimated Creatinine Clearance 58.14 ml/min; Glucose 114 mg/dL (70-99); Sodium Level 143 mmol/L (133-145)
[2024-11-05] VITALS: BP 128/80; PULSE 62; RESP 22; O2SAT 98
[2024-11-05 00:15] VITALS: BP 131/70; PULSE 61; RESP 23; O2SAT 98
[2024-11-05 00:30] VITALS: BP 128/61; PULSE 62; RESP 23; O2SAT 98
[2024-11-05 00:45] VITALS: BP 129/74; PULSE 63; RESP 26; O2SAT 98
[2024-11-05 02:00] VITALS: BP 144/89; PULSE 69; RESP 19; O2SAT 95
[2024-11-05 02:15] LABS: TROPONIN VARIANCE 2 HR 2; Troponin T High Sens 2 HR 10 ng/L (<=14)
[2024-11-05 03:51] VITALS: BP 126/73; PULSE 78; RESP 16; TEMP 36.6; O2SAT 99
== END 2024-11-05 05:03 | disposition home or self-care (01) ==
PROVIDERS: Emergency Provider Emergency Medicine; PCP Internal Medicine; Visit Provider Emergency Medicine
DX: R09.02 Hypoxemia (principal); I11.0 Hypertensive heart disease with heart failure; I50.9 Heart failure, unspecified; J44.9 Chronic obstructive pulmonary disease, unspecified; T78.8XXA Other adverse effects, not elsewhere classified, initial encounter; Y82.8 Other medical devices associated with adverse incidents; I25.10 Atherosclerotic heart disease of native coronary artery without angina pectoris; E78.00 Pure hypercholesterolemia, unspecified; F17.210 Nicotine dependence, cigarettes, uncomplicated; Z79.51 Long term (current) use of inhaled steroids; Z99.81 Dependence on supplemental oxygen; Z79.899 Other long term (current) drug therapy
CPT/HCPCS: 71046; 80048; 84484; 85025; 93005; 99285; A4216

== ENCOUNTER 2024-12-20 15:01 | Emergency (ER) | payer MEDICARE, MEDICAID, SELFPAY ==
[2024-12-20] VITALS (9 sets, daily range): BP systolic 149–171; BP diastolic 77–100; PULSE 69–93; RESP 18–22; TEMP 36.3–37.1; O2SAT 88–96; BMI 35.3
--- NOTE | 2024-12-20 15:05 | EKG12_ITS ---
Test Reason : CP Blood Pressure : */* mmHG Vent. Rate : 69 BPM Atrial Rate : 69 BPM P-R Int : 136 ms QRS Dur : 96 ms QT Int : 374 ms P-R-T Axes : 60 29 83 degrees QTcB Int : 400 ms Normal sinus rhythm Cannot rule out Inferior infarct , age undetermined Cannot rule out Anteroseptal infarct , age undetermined Abnormal ECG Confirmed by Brown Ann ([id number]), book editor MICAH SALEMRON ([id number]) on 12/23/2024 6:46:46 AM Referred By: Confirmed By: Brown Ann
[2024-12-20 15:16] LABS: Absolute Lymphocyte Count 1.79 X10^3/uL (0.83-4.51); Absolute Neutrophil Count 2.6 X10^3/uL (2.0-7.7); Basophil# 0.04 X10^3/uL; Basophil% 0.8 % (0-1); Eosinophil# 0.14 X10^3/uL; Eosinophils% 2.8 % (0-5); Hematocrit 39.5 % (37-47); Hemoglobin 13.1 g/dL (12.0-15.0); Lymphocyte # 1.79 X10^3/ul (0.83-4.51); Lymphocyte % 35.8 % (19-41); Mean Corp Hgb Conc 33.2 g/dL (32-36); Mean Corpuscular Hgb 31.6 pg (27.0-32.0); Mean Corpuscular Volume 95.2 fL (81-99); Mean Platelet Vol. 9.4 fl (6.2-12.0); Monocyte# 0.38 X10^3/uL; Monocyte% 7.6 % (0-10); NRBC Flagged by Analyzer 0 % (0-5); Neutrophil # 2.64 X10^3/uL (2.7-7.7); Neutrophil % 52.8 % (47-70); Platelet Count 183 K/mm3 (150-450); RBC Distribution Width CV 12.7 % (11.6-14.6); RBC Distribution Width SD 44.1 fl (35.1-43.9); Red Blood Count 4.15 M/mm3 (4.2-5.4)
[2024-12-20 15:24] LABS: Prothrombin Time (Protime)PT. 13.1 SECONDS (11.7-14.9)
[2024-12-20 15:40] LABS: Anion Gap 8 (5-15); BUN 9 mg/dL (4-19); BUN/Creat Ratio 11.7 RATIO (10-20); Calcium,Total 9.6 mg/dL (7.6-11.0); Carbon Dioxide 30.9 mmol/L (21.0-32.0); Chloride 102 mmol/L (98-108); Creatinine, Serum 0.78 mg/dL (0.70-1.20); EST Glomerular Filtration Rate 83 (>60); Glucose 117 mg/dL (70-99); Potassium 4.3 mmol/L (3.3-5.1); Sodium Level 141 mmol/L (133-145); Troponin T High Sensitivity 11 ng/L (<=14)
--- NOTE | 2024-12-20 15:47 | ED.VIS.DYS ---
HPI History of Present Illness Chief Complaint: Shortness of Breath Narrative Narrative: 69-year-old female presents with her family because of increasing shortness of breath over the last 2 days. She has a past medical history of COPD and wears oxygen at home. She states she has had to increase her oxygen from 2 L to 3 L, and additionally she reports that yesterday she had a pulse ox in the 70s to 80s. She does continue to smoke cigarettes. Today, she was seen by her pain management doctor and her family was concerned about her breathing issues over the last 2 days so they state that they brought her to the emergency department for evaluation. She denies any fevers or chills but states she has had occasional cough. No leg swelling. She also feels lightheaded. She told triage that she was having chest pain with radiation to the left shoulder as well. [facility] Medical History Chronic pain Kidney disease Asthma Irregular heart beat Congestive heart failure (CHF) TIA (transient ischemic attack) Wears glasses Post-menopausal Arthritis History of renal disease High cholesterol DVT (deep venous thrombosis) Easy bruising Excessive bleeding Back pain Injury of back History of ulceration Difficulty chewing Gastric reflux Shortness of breath on exertion Hoarseness Chronic cough Leg cramps History of pain when walking History of edema History of echocardiogram History of stress test Cardiology follow-up encounter History of CHF (congestive heart failure) History of irregular heartbeat Chest pain Bullous emphysema COPD with asthma Esophagitis, unspecified without bleeding Unspecified combined 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 Other chronic pain Elevated troponin Sustained SVT Depression Osteoporosis Kidney stones Smoker Myocardial infarct History of non-ST elevation myocardial infarction (NSTEMI) (09/01/21) Essential hypertension Old anterior wall myocardial infarction Ischemic cardiomyopathy Opiate dependence Anxiety and depression TIA (transient ischemic attack) Obesity (BMI 30.0-34.9) EVELYN (obstructive sleep apnea) Personal history of transient ischemic attack (TIA), and cerebral infarction without residual deficits COPD (chronic obstructive pulmonary disease) Calculus of left kidney GERD (gastroesophageal reflux disease) Hyperlipidemia Atherosclerotic heart disease of [place] coronary artery without angina pectoris Tobacco abuse Home Medications ?Medication ?Instructions ?Recorded ?Last Taken ?Type inhalational spacing device #1 ea 02/17/23 Unknown Rx (Aerochamber MV spacer) tiotropium bromide 2.5 2 puff inhalation DAILY #4 grams 02/17/23 09/27/24 Rx mcg/actuation mist for inhalation (Spiriva Respimat) lorazepam 1 mg tablet (Ativan) 1 mg PO TID PRN anxiety 07/16/23 09/27/24 History gabapentin 400 mg capsule 400 mg PO Q6H 07/29/23 09/27/24 History nitroglycerin 0.4 mg sublingual 0.4 mg buccal Q5M PRN chest pain 07/29/23 Unknown History tablet sucralfate 1 gram tablet 1 g PO Q8H 07/29/23 09/27/24 History albuterol sulfate 2.5 mg/3 mL 2.5 mg continuous nebulization Q6H 09/05/23 Unknown History (0.083 %) solution for nebulization PRN shortness of breath or wheezing melatonin 3 mg capsule 3 mg PO QHS 09/05/23 09/27/24 History albuterol 90 mcg-budesonide 80 1 - 2 inh inhalation BID PRN 09/28/24 09/27/24 History mcg/actuation HFA aerosol inhaler shortness of breath (Airsupra) atorvastatin 40 mg tablet 40 mg PO QHS 09/28/24 09/27/24 History bisacodyl 5 mg tablet,delayed 5 mg PO DAILY PRN constipation 09/28/24 Unknown History release cholecalciferol (vitamin D3) 125 125 mcg PO DAILY 09/28/24 09/27/24 History mcg (5,000 unit) capsule hydrocodone-acetaminophen 5-325mg 1 tab PO Q4H 09/28/24 09/27/24 History 5mg-325mg lisinopril 5 mg tablet 5 mg PO DAILY 09/28/24 09/27/24 History oxycodone myristate 18 mg capsule 18 mg PO BID 09/28/24 09/27/24 History sprinkle extended release 12hr(DON'T CRUSH) (Xtampza ER) polyethylene glycol 3350 17 17 g PO BID 09/28/24 09/27/24 History gram/dose oral powder promethazine 25 mg tablet 25 mg PO PRN PRN nausea and 09/28/24 Unknown History vomiting albuterol sulfate 90 mcg/actuation 2 puff inhalation Q6H PRN 09/30/24 Unknown Rx aerosol inhaler shortness of breath or wheezing #8.5 grams budesonide-formoterol HFA 160 1 puff inhalation BID #10.2 grams 09/30/24 Unknown Rx mcg-4.5 mcg/actuation aerosol inhaler (Symbicort) doxycycline hyclate 100 mg capsule 100 mg PO BID #14 caps 09/30/24 Unknown Rx guaifenesin 1,200 mg tablet, 1,200 mg PO BID #30 tabs 09/30/24 Unknown Rx extended release 12 hr (Mucus Relief ER) prednisone 20 mg tablet 20 mg PO BID #10 tabs 09/30/24 Unknown Rx carvedilol 25 mg tablet 25 mg PO BID #120 tabs 10/04/24 Unknown Rx furosemide 40 mg tablet 40 mg PO QDAY #90 tabs 10/04/24 Unknown Rx prednisone 20 mg tablet 40 mg (2 x 20 mg) PO DAILY 7 days 12/20/24 Unknown Rx #14 tabs Allergy/AdvReac Type Severity Reaction Status Date / Time No Known Allergies Allergy Verified 12/20/24 15:46 Family History Mother Hypertension CAD (coronary artery disease) CVA (cerebral vascular accident) Myocardial infarction Grandmother Myocardial infarction Surgical History History of cholecystectomy Hx of esophagogastroduodenoscopy History of cardiac catheterization History of hysterectomy History of left heart catheterization (01/20/22) History of total hysterectomy Hx of appendectomy Social History household members: none Smoking Status: Current some day smoker tobacco type: cigarettes alcohol intake: never substance use type: does not use ROS ROS ED ROS Narrative Constitutional: No fever, no chills. HEENT: No rhinorrhea. Cardiovascular: Positive chest pain. No palpitations. No pedal edema. Respiratory: Occasional cough, positive shortness of breath. Abdominal: No abdominal pain. No nausea. No vomiting. Genitourinary: No dysuria. No hematuria. Musculoskeletal: No myalgias. No arthralgias. Neurologic: No headaches. No dizziness. Positive lightheadedness. EXAM Physical Exam Narrative Exam Narrative: Afebrile. Vital signs noted. Nontoxic-appearing. Cardiovascular examination reveals a regular rate and rhythm, lung sounds are clear to auscultation bilaterally with diminished sounds at the bilateral bases, no rhonchi or wheezing. No appreciable rales. Abdomen is soft and nontender without guarding or rebound. Positive bowel sounds. Neurological examination nonfocal, nonlateralizing. No pedal edema. Const Vital Signs: 12/20/24 15:01 12/20/24 15:04 12/20/24 15:05 Temperature 98.7 F Temperature Source Oral Pulse Rate 80 Respiratory Rate 22 H Respiratory Effort Respiratory Pattern Blood Pressure 164/99 H Blood Pressure Mean 120 Pulse Ox 88 92 95 Oxygen Delivery Method Nasal Cannula Nasal Cannula Nasal Cannula Oxygen Flow Rate (L/min) 3 4 2 12/20/24 15:42 12/20/24 15:46 12/20/24 16:28 Temperature Temperature Source Pulse Rate Respiratory Rate 18 Respiratory Effort Short of Breath Short of Breath Respiratory Pattern Normal Normal Blood Pressure Blood Pressure Mean Pulse Ox Oxygen Delivery Method Oxygen Flow Rate (L/min) 12/20/24 16:36 12/20/24 17:00 12/20/24 18:00 Temperature Temperature Source Pulse Rate 69 74 93 Respiratory Rate 18 18 18 Respiratory Effort Respiratory Pattern Blood Pressure 159/85 H 168/93 H 171/100 H Blood Pressure Mean 109 118 123 Pulse Ox 96 93 93 Oxygen Delivery Method Nasal Cannula Nasal Cannula Nasal Cannula Oxygen Flow Rate (L/min) 2 2 2 12/20/24 18:15 Temperature 97.4 F L Temperature Source Pulse Rate 73 Respiratory Rate 18 Respiratory Effort Respiratory Pattern Blood Pressure 149/77 H Blood Pressure Mean 101 Pulse Ox 96 Oxygen Delivery Method Oxygen Flow Rate (L/min) MDM MDM MDM Narrative Medical decision making narrative: The differential diagnosis includes but not limited to COPD exacerbation versus bronchitis versus pneumonia versus pneumothorax. I have low suspicion clinically for pulmonary embolism as she is not tachycardic. She is satting 95% on 2 L nasal cannula currently. Smoking cessation was discussed. She was administered a DuoNeb aerosolized treatment and Solu-Medrol as well. To help rule out ACS as well, per protocol troponins were ordered by RN. EKG was obtained and interpreted by myself independently as normal sinus rhythm at [address] changes. No STEMI. I reviewed her laboratory work and she has normal white count of 5.0 with hemoglobin normal at 13.1, hematocrit 39.5 with platelet count normal at 183. Coags are negative. Sodium is normal at 141 with potassium of 4.3, BUN of 9 and creatinine 0.78, glucose is elevated at 117 but anion gap normal at 8. Initial high-sensitivity troponin is 11 with 2-hour being 12. I feel she has been ruled out for ACS with biomarkers. On my individual interpretation of her chest x-ray, there is no gross consolidation or pneumothorax. I reviewed the radiology report which comments on slight increase in her right base atelectasis versus early infiltrate. I do not feel she needs antibiotics as she is not complaining of productive cough, she has no fever or white count here. She was able to ambulate here on 2 L of oxygen. She wears oxygen as needed at home. Her pulse ox remained 91 to 95%. She was told to wear her oxygen more frequently especially if she notices a low pulse ox. She was told that she can increase it to as much as 5 L/min. Additionally, she was told not to smoke on her oxygen and to attempt to quit smoking. At this point in time, I do not feel that she requires admission or observation. She has albuterol at home that she has been using. I wrote her for steroid burst for the next 7 days that she can seed cone picker from the pharmacy tomorrow. She is motivated for discharge. Her family is as well. Return instructions to the emergency department were reviewed. Disposition is discharged home in stable condition. History & Record Review Discussion w/independent historian: Patient and Family Lab Data Attestation: I reviewed the patient's lab results. Labs: Laboratory Results - last 24 hr 12/20/24 12/20/24 15:08 17:22 WBC 5.0 RBC 4.15 L Hgb 13.1 Hct 39.5 MCV 95.2 MCH 31.6 MCHC 33.2 RDW Std Deviation 44.1 H RDW Coeff of Saria[place] 12.7 Plt Count 183 MPV 9.4 Immature Gran % (Auto) 0.200 Neut % (Auto) 52.8 Lymph % (Auto) 35.8 [place] % (Auto) 7.6 Eos % (Auto) 2.8 Baso % (Auto) 0.8 Absolute Neuts (auto) 2.6 Absolute Lymphs (auto) 1.79 Nucleated RBC % 0 PT 13.1 INR 1.0 Sodium 141 Potassium 4.3 Chloride 102 Carbon Dioxide 30.9 Anion Gap 8 BUN 9 Creatinine 0.78 Est GFR (MDRD) Non-Af 83 BUN/Creatinine Ratio 11.7 Glucose 117 H Calcium 9.6 Troponin T High Sens 11 D Troponin T Hi Sens 2 Hr 12 Radiography Diagnostic Testing: Clinical Impression(s) from Imaging Studies Chest X-Ray 12/20/24 15:50 IMPRESSION: 1. Mild vaguely linear RIGHT basilar airspace has increased slightly, atelectasis or early/mild pneumonia. 2. Additional description as above. Reading Location: [id number] Discharge Plan Triage Chief Complaint: Shortness of Breath Other Complaint: Chest Pain ED Provider: Waqas Hart Dx/Rx/DC Orders Clinical Impression: COPD exacerbation, SOB (shortness of breath), Chest pain Instructions: ED COPD Flare, ED Chest Pain, Uncertain Cause Prescriptions: New prednisone 20 mg tablet 40 mg PO DAILY 7 Days Qty: 14 0RF No Action Spiriva Respimat 2.5 mcg/actuation mist 2 puff inhalation DAILY Qty: 4 11RF (DME) Aerochamber MV Spacer See Rx Instructions .ROUTE .MEDSUPPLY Qty: 1 0RF Rx Instructions: As directed lorazepam [Ativan] 1 mg tablet 1 mg PO TID PRN (Reason: anxiety) furosemide 40 mg tablet 40 mg PO QDAY Qty: 90 3RF carvedilol 25 mg tablet 25 mg PO BID Qty: 120 3RF Rx Instructions: must administer with a meal/food albuterol sulfate 2.5 mg /3 mL (0.083 %) solution for nebulization 2.5 mg continuous nebulization Q6H PRN (Reason: shortness of breath or wheezing) melatonin 3 mg capsule 3 mg PO QHS gabapentin 400 mg capsule 400 mg PO Q6H nitroglycerin 0.4 mg tablet, sublingual 0.4 mg buccal Q5M PRN (Reason: chest pain) sucralfate 1 gram tablet 1 g PO Q8H promethazine 25 mg tablet 25 mg PO PRN PRN (Reason: nausea and vomiting) Xtampza ER 18 mg cap,sprinkl,ER12hr(DONT CRUSH) 18 mg PO BID Patient Comments: [NO ORIGINAL SIG] hydrocodone-acetaminophen 5-325 mg tablet 1 tab PO Q4H Airsupra 90-80 mcg/actuation HFA aerosol inhaler 1 - 2 inh INHALATION BID PRN (Reason: shortness of breath) Patient Comments: [NO ORIGINAL SIG] atorvastatin 40 mg tablet 40 mg PO QHS bisacodyl 5 mg tablet,delayed release (DR/EC) 5 mg PO DAILY PRN (Reason: constipation) Patient Comments: [NO ORIGINAL SIG] polyethylene glycol 3350 17 gram/dose powder 17 g PO BID cholecalciferol (vitamin D3) 125 mcg (5,000 unit) capsule 125 mcg PO DAILY lisinopril 5 mg tablet 5 mg PO DAILY guaifenesin [Mucus Relief ER] 1,200 mg Tablet Extended Release 12hr 1,200 mg PO BID Qty: 30 0RF prednisone 20 mg tablet 20 mg PO BID Qty: 10 0RF doxycycline hyclate 100 mg capsule 100 mg PO BID Qty: 14 0RF albuterol sulfate 90 mcg/actuation HFA aerosol inhaler 2 puff inhalation Q6H MDD 10 puffs PRN (Reason: shortness of breath or wheezing) Qty: 8.5 6RF Rx Instructions: This inhaler must be used with a spacer device. budesonide-formoterol [Symbicort] 160-4.5 mcg/actuation HFA aerosol inhaler 1 puff inhalation BID Qty: 10.2 0RF Primary Care Provider: Sandy Barbosa Referrals: Sandy Barbosa MD [Primary Care Provider] - 3-5 Days Activity Restrictions/Additional Instructions: Use your oxygen. Take the steroid burst. Use your albuterol as directed. Return with increased shortness of breath, new or worsening symptoms. Print Language: Hebrew Disposition Disposition: Home, Self Care
--- NOTE | 2024-12-20 15:50 | RAD_ITS ---
PROCEDURE: CHEST 1 VIEW (PORTABLE) 12/20/2024 REASON FOR EXAM: CHEST PAIN TECHNIQUE: Frontal view of the chest. COMPARISON: 11/04/2024 FINDINGS: Patient is slightly rotated. Heart: Similar cardiomegaly.. Mediastinum: Grossly similar allowing for rotation. Atherosclerosis. Hiatal hernia. Lungs/pleura: Mild vaguely linear RIGHT basilar airspace disease has increased slightly no sizeable pleural effusion or visible pneumothorax. Bones: Unremarkable. Lines and support devices: None. Other: None. RAD/Chest 1 View (Portable) IMPRESSION: 1. Mild vaguely linear RIGHT basilar airspace has increased slightly, atelectas is or early/mild pneumonia. 2. Additional description as above. Reading Location: [id number]
[2024-12-20] MEDS: MethylPREDNISolone 125 MG/2 ML Vial IV (15:52)
[2024-12-20] MEDS: Ipratropium/Albuterol Sulfate 3 ML AMPUL.NEB INHALATION (16:27)
[2024-12-20 18:06] LABS: Troponin T High Sens 2 HR 12 ng/L (<=14)
== END 2024-12-20 18:22 | disposition home or self-care (01) ==
PROVIDERS: Emergency Provider Emergency Medicine; PCP Internal Medicine; Visit Provider Emergency Medicine
DX: J44.1 Chronic obstructive pulmonary disease with (acute) exacerbation (principal); I11.0 Hypertensive heart disease with heart failure; I50.40 Unspecified combined 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; R07.9 Chest pain, unspecified; I25.10 Atherosclerotic heart disease of native coronary artery without angina pectoris; I25.2 Old myocardial infarction; E78.00 Pure hypercholesterolemia, unspecified; F17.210 Nicotine dependence, cigarettes, uncomplicated; Z79.51 Long term (current) use of inhaled steroids; Z79.52 Long term (current) use of systemic steroids; Z79.899 Other long term (current) drug therapy; Z86.73 Personal history of transient ischemic attack (TIA), and cerebral infarction without residual deficits
CPT/HCPCS: 71045; 80048; 84484; 85025; 85610; 93005; 94640; 96374; 99284; A4216

== ENCOUNTER 2024-12-30 18:18 | Emergency (ER) | payer MEDICARE, MEDICAID, SELFPAY ==
[2024-12-30 18:20] VITALS: BP 145/101; PULSE 107; RESP 20; TEMP 36.9; O2SAT 90; BMI 34.9
--- NOTE | 2024-12-30 19:36 | CT_ITS ---
PROCEDURE: ABDOMEN/PELVIS WITHOUT CONT 12/30/2024 REASON FOR EXAM: LEFT UPPER QUADRANT ABDOMINAL PAIN TECHNIQUE: Abdomen and pelvis CT without intravenous contrast. Noncontrast technique limits evaluation of the abdominal and pelvic viscera. Coronal and Sagittal reconstruction series were provided. One or more dose reduction techniques were used (e.g., Automated exposure control, adjustment of the mA and/or kV according to patient size, use of iterative reconstruction technique). PATIENT PREPARATION: Per protocol ORAL CONTRAST TYPE: None. AMOUNT: mL FINDINGS: Lung bases: Lung bases are clear. Liver: Normal size. No obvious mass. Gallbladder: Not visualized Spleen: Normal size. Pancreas: Normal size. No surrounding inflammation. Adrenals: Unremarkable. Kidneys: Bilateral nonobstructing renal stones. No hydronephrosis, ureteral stone, ureteral dilatation. Bladder: Unremarkable. Reproductive Organs: Unremarkable. Bowel: Large hiatal hernia. Some diverticula within the sigmoid colon consistent with diverticulosis. No wall thickening or stranding of surrounding fat to suggest diverticulitis. Appendix: Unremarkable. Lymph nodes: Unremarkable. Vasculature: Fusiform dilatation of the infrarenal abdominal aorta with a maximal diameter of 3.8 cm consistent with an aneurysm. Mild amount of peripheral calcified plaque. Calcified plaque in the iliac arteries. Peritoneum / Retroperitoneum: Unremarkable. Bones: Mild dextroscoliosis lumbar spine with degenerative disc disease. CT/Abdomen/Pelvis without Cont IMPRESSION: No acute abnormality. Large hiatal hernia. Bilateral nonobstructing renal stones. Sigmoid diverticulosis without diverticulitis. 3.8 cm abdominal aortic aneurysm. Reading Location: [id number]
--- NOTE | 2024-12-30 19:37 | ED.VIS.GI ---
HPI HPI - GI History of Present Illness Chief Complaint: Abd Pain Narrative Narrative: 69-year-old female past medical history of COPD presents with left upper quadrant abdominal pain that she has had over the last month. She states that she was seen in the emergency department a few weeks to over a month ago. She was seen for different reason but states that she has had left upper quadrant abdominal pain. Sometimes is sharp and stabbing. She has history of Sanchez's esophagus as well. She denies any fever but states she has had chills, no exacerbating or alleviating factors. No dysuria or hematuria. No problems with bowel movements. She states that she has this pain that she has had for quite some time. [facility] Medical History Chronic pain Kidney disease Asthma Irregular heart beat Congestive heart failure (CHF) TIA (transient ischemic attack) Wears glasses Post-menopausal Arthritis History of renal disease High cholesterol DVT (deep venous thrombosis) Easy bruising Excessive bleeding Back pain Injury of back History of ulceration Difficulty chewing Gastric reflux Shortness of breath on exertion Hoarseness Chronic cough Leg cramps History of pain when walking History of edema History of echocardiogram History of stress test Cardiology follow-up encounter History of CHF (congestive heart failure) History of irregular heartbeat Chest pain Bullous emphysema COPD with asthma Esophagitis, unspecified without bleeding Unspecified combined 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 Other chronic pain Elevated troponin Sustained SVT Depression Osteoporosis Kidney stones Smoker Myocardial infarct History of non-ST elevation myocardial infarction (NSTEMI) (09/01/21) Essential hypertension Old anterior wall myocardial infarction Ischemic cardiomyopathy Opiate dependence Anxiety and depression TIA (transient ischemic attack) Obesity (BMI 30.0-34.9) EVELYN (obstructive sleep apnea) Personal history of transient ischemic attack (TIA), and cerebral infarction without residual deficits COPD (chronic obstructive pulmonary disease) Calculus of left kidney GERD (gastroesophageal reflux disease) Hyperlipidemia Atherosclerotic heart disease of [place] coronary artery without angina pectoris Tobacco abuse Home Medications ?Medication ?Instructions ?Recorded ?Last Taken ?Type inhalational spacing device #1 ea 02/17/23 Unknown Rx (Aerochamber MV spacer) tiotropium bromide 2.5 2 puff inhalation DAILY #4 grams 02/17/23 09/27/24 Rx mcg/actuation mist for inhalation (Spiriva Respimat) lorazepam 1 mg tablet (Ativan) 1 mg PO TID PRN anxiety 07/16/23 09/27/24 History gabapentin 400 mg capsule 400 mg PO Q6H 07/29/23 09/27/24 History nitroglycerin 0.4 mg sublingual 0.4 mg buccal Q5M PRN chest pain 07/29/23 Unknown History tablet sucralfate 1 gram tablet 1 g PO Q8H 07/29/23 09/27/24 History melatonin 3 mg capsule 3 mg PO QHS 09/05/23 09/27/24 History albuterol 90 mcg-budesonide 80 1 - 2 inh inhalation BID PRN 09/28/24 09/27/24 History mcg/actuation HFA aerosol inhaler shortness of breath (Airsupra) atorvastatin 40 mg tablet 40 mg PO QHS 09/28/24 09/27/24 History bisacodyl 5 mg tablet,delayed 5 mg PO DAILY PRN constipation 09/28/24 Unknown History release cholecalciferol (vitamin D3) 125 125 mcg PO DAILY 09/28/24 09/27/24 History mcg (5,000 unit) capsule hydrocodone-acetaminophen 5-325mg 1 tab PO Q4H 09/28/24 09/27/24 History 5mg-325mg lisinopril 5 mg tablet 5 mg PO DAILY 09/28/24 09/27/24 History oxycodone myristate 18 mg capsule 18 mg PO BID 09/28/24 09/27/24 History sprinkle extended release 12hr(DON'T CRUSH) (Xtampza ER) polyethylene glycol 3350 17 17 g PO BID 09/28/24 09/27/24 History gram/dose oral powder promethazine 25 mg tablet 25 mg PO PRN PRN nausea and 09/28/24 Unknown History vomiting budesonide-formoterol HFA 160 1 puff inhalation BID #10.2 grams 09/30/24 Unknown Rx mcg-4.5 mcg/actuation aerosol inhaler (Symbicort) carvedilol 25 mg tablet 25 mg PO BID #120 tabs 10/04/24 Unknown Rx furosemide 40 mg tablet 40 mg PO QDAY #90 tabs 10/04/24 Unknown Rx Allergy/AdvReac Type Severity Reaction Status Date / Time No Known Allergies Allergy Verified 12/30/24 18:22 Family History Mother Hypertension CAD (coronary artery disease) CVA (cerebral vascular accident) Myocardial infarction Grandmother Myocardial infarction Surgical History History of cholecystectomy Hx of esophagogastroduodenoscopy History of cardiac catheterization History of hysterectomy History of left heart catheterization (01/20/22) History of total hysterectomy Hx of appendectomy Social History household members: none Smoking Status: Current some day smoker tobacco type: cigarettes alcohol intake: never substance use type: does not use ROS ROS ED ROS Narrative Constitutional: No fever, positive chills. HEENT: No sore throat. No neck pain. Cardiovascular: No chest pain. No palpitations. No pedal edema. Respiratory: No cough, no shortness of breath. Abdominal: Left upper quadrant abdominal pain. No nausea. No vomiting. No problems with bowel movements. Genitourinary: No dysuria. No hematuria. Musculoskeletal: No myalgias. No arthralgias. EXAM Physical Exam Narrative Exam Narrative: Afebrile. Vital signs noted. HEENT: Normocephalic. Atraumatic. PERRL, EOMI. Neck soft and supple. No point tenderness or step off. Cardiovascular: Regular rate and rhythm. No murmurs, rubs, or gallops appreciated. Respiratory: No tachypnea. Lungs clear to auscultation bilaterally. Gastrointestinal: Abdomen soft, nontender, with normoactive bowel sounds. No rebound or guarding. Neurological: Awake. Alert. Nonfocal, nonlateralizing. Skin: No rash. Normal color. No pallor. Musculoskeletal: No pedal edema. Full range of motion extremities. Const Vital Signs: 12/30/24 18:20 12/30/24 19:52 12/30/24 21:00 Temperature 98.4 F Temperature Source Oral Pulse Rate 107 H 94 81 Respiratory Rate 20 H 16 16 Blood Pressure 145/101 H 168/98 H 141/92 H Blood Pressure Mean 115 121 108 Pulse Ox 90 87 95 Oxygen Delivery Method Room Air Room Air MDM MDM MDM Narrative Medical decision making narrative: Differential diagnosis includes but not limited to pneumonia versus ACS versus diverticulitis versus bowel obstruction versus pancreatitis. I have low suspicion for splenic rupture. Her pain has been ongoing for at least a month. EKG was obtained and interpreted by myself independently as normal sinus rhythm at 94 bpm without ectopy or acute ST changes. No STEMI. I reviewed her laboratory work and she has normal white count of 8.1 with hemoglobin 13.2, hematocrit 41.1, platelet count 208. CMP is grossly unremarkable with normal sodium of 142 and potassium 3.7. LFTs are normal. Lipase normal at 13 so I do not think she has a pancreatitis. Urinalysis negative for infection with negative nitrites, negative ketones and 0-5 WBCs. I do not feel antibiotics are indicated. Originally I had ordered CT of the abdomen and pelvis with IV contrast, but patient told the application support technician that she had IV contrast once and had side effects to it. It is not listed as an allergy. Instead CT was performed without IV contrast. I reviewed the radiology report which shows no acute process. Chest x-ray obtained and interpreted by myself independently shows no pneumonia or pneumothorax. I reviewed the radiology report which confirms my independent interpretation. Upon repeat examination at approximately 2134, she feels slightly improved. Her abdomen remains soft. She states that she was supposed to have hernia surgery by Dr. Tejada on the right upper quadrant, but she was too high risk so she has spoken on the phone with another surgeon. At this point in time, I think she is having more nonspecific abdominal pain. As there is no obstruction, and no inflammation, I feel she can be discharged to follow-up. She states she also sees Dr. Martinez that she can follow-up with him as well. Disposition is discharged home in stable condition. History & Record Review Discussion w/independent historian: Patient Additional record(s) reviewed:: Prior ED visit (Seen more for chest pain and shortness of breath recently) Lab Data Attestation: I reviewed the patient's lab results. Labs: Laboratory Results - last 24 hr 12/30/24 12/30/24 18:33 19:33 WBC 8.1 RBC 4.17 L Hgb 13.2 Hct 41.1 MCV 98.6 MCH 31.7 MCHC 32.1 RDW Std Deviation 47.3 H RDW Coeff of Sariah 13.1 Plt Count 208 MPV 9.7 Immature Gran % (Auto) 0.400 Neut % (Auto) 57.9 Lymph % (Auto) 32.5 [place] % (Auto) 6.9 Eos % (Auto) 1.7 Baso % (Auto) 0.6 Absolute Neuts (auto) 4.7 Absolute Lymphs (auto) 2.64 Nucleated RBC % 0 Sodium 142 Potassium 3.7 Chloride 103 Carbon Dioxide 29.7 Anion Gap 9 BUN 14 Creatinine 0.84 Estim Creat Clear Calc 62.99 Est GFR (MDRD) Non-Af 76 BUN/Creatinine Ratio 16.3 Glucose 99 Calcium 9.5 Total Bilirubin 0.30 AST 16 ALT 6 Alkaline Phosphatase 97 Total Protein 6.8 Albumin 3.8 Globulin 2.9 Albumin/Globulin Ratio 1.3 Lipase 13 Urine Color Yellow Urine Clarity Clear Urine pH 6.0 Ur Specific [place] 1.020 Urine Protein 30 H Urine Glucose (UA) Normal Urine Ketones Negative Urine Occult Blood Negative Urine Nitrite Negative Urine Bilirubin Negative Urine Urobilinogen Normal Ur Leukocyte Esterase 25 H Urine RBC 0-5 SEEN Urine WBC 0-5 SEEN Ur Squamous Epith Cells 0 SEEN Urine Bacteria 0 SEEN Urine Mucus 0 SEEN Radiography Diagnostic Testing: Clinical Impression(s) from Imaging Studies Abdomen/Pelvis CT 12/30/24 19:36 IMPRESSION: No acute abnormality. Large hiatal hernia. Bilateral nonobstructing renal stones. Sigmoid diverticulosis without diverticulitis. 3.8 cm abdominal aortic aneurysm. Reading Location: [facility] Chest X-Ray 12/30/24 20:07 IMPRESSION: No Acute Findings. Reading Location: [facility] Discharge Plan Triage Chief Complaint: Abd Pain Other Complaint: Back ED Provider: Waqas Hart Dx/Rx/DC Orders Clinical Impression: Abdominal pain, Continuous LUQ abdominal pain Instructions: ED Abdominal Pain Unkn Cause Fem Prescriptions: No Action Spiriva Respimat 2.5 mcg/actuation mist 2 puff inhalation DAILY Qty: 4 11RF (DME) Aerochamber MV Spacer See Rx Instructions .ROUTE .MEDSUPPLY Qty: 1 0RF Rx Instructions: As directed lorazepam [Ativan] 1 mg tablet 1 mg PO TID PRN (Reason: anxiety) furosemide 40 mg tablet 40 mg PO QDAY Qty: 90 3RF carvedilol 25 mg tablet 25 mg PO BID Qty: 120 3RF Rx Instructions: must administer with a meal/food melatonin 3 mg capsule 3 mg PO QHS gabapentin 400 mg capsule 400 mg PO Q6H nitroglycerin 0.4 mg tablet, sublingual 0.4 mg buccal Q5M PRN (Reason: chest pain) sucralfate 1 gram tablet 1 g PO Q8H promethazine 25 mg tablet 25 mg PO PRN PRN (Reason: nausea and vomiting) Xtampza ER 18 mg cap,sprinkl,ER12hr(DONT CRUSH) 18 mg PO BID Patient Comments: [NO ORIGINAL SIG] hydrocodone-acetaminophen 5-325 mg tablet 1 tab PO Q4H Airsupra 90-80 mcg/actuation HFA aerosol inhaler 1 - 2 inh INHALATION BID PRN (Reason: shortness of breath) Patient Comments: [NO ORIGINAL SIG] atorvastatin 40 mg tablet 40 mg PO QHS bisacodyl 5 mg tablet,delayed release (DR/EC) 5 mg PO DAILY PRN (Reason: constipation) Patient Comments: [NO ORIGINAL SIG] polyethylene glycol 3350 17 gram/dose powder 17 g PO BID cholecalciferol (vitamin D3) 125 mcg (5,000 unit) capsule 125 mcg PO DAILY lisinopril 5 mg tablet 5 mg PO DAILY budesonide-formoterol [Symbicort] 160-4.5 mcg/actuation HFA aerosol inhaler 1 puff inhalation BID Qty: 10.2 0RF Primary Care Provider: Sandy Barbosa Referrals: Sandy Barbosa MD [Primary Care Provider] - 3-5 Days if not improving Michelle,DO Rakesh [Med Staff - Active Staff] - As soon as possible Print Language: Arabic Disposition Disposition: Home, Self Care
[2024-12-30] MEDS: Ondansetron ODT 4 MG Tablet PO (19:48)
[2024-12-30] MEDS: Morphine 4 MG/ML Syringe IV (19:49)
[2024-12-30 19:52] VITALS: BP 168/98; PULSE 94; RESP 16; O2SAT 87
[2024-12-30 19:59] LABS: Absolute Lymphocyte Count 2.64 X10^3/uL (0.83-4.51); Absolute Neutrophil Count 4.7 X10^3/uL (2.0-7.7); Basophil# 0.05 X10^3/uL; Basophil% 0.6 % (0-1); Eosinophil# 0.14 X10^3/uL; Eosinophils% 1.7 % (0-5); Hematocrit 41.1 % (37-47); Hemoglobin 13.2 g/dL (12.0-15.0); Lymphocyte # 2.64 X10^3/ul (0.83-4.51); Lymphocyte % 32.5 % (19-41); Mean Corp Hgb Conc 32.1 g/dL (32-36); Mean Corpuscular Hgb 31.7 pg (27.0-32.0); Mean Corpuscular Volume 98.6 fL (81-99); Mean Platelet Vol. 9.7 fl (6.2-12.0); Monocyte# 0.56 X10^3/uL; Monocyte% 6.9 % (0-10); NRBC Flagged by Analyzer 0 % (0-5); Neutrophil % 57.9 % (47-70); Platelet Count 208 K/mm3 (150-450); RBC Distribution Width CV 13.1 % (11.6-14.6); RBC Distribution Width SD 47.3 fl (35.1-43.9); Red Blood Count 4.17 M/mm3 (4.2-5.4); White Blood Count 8.1 K/mm3 (4.4-11.0)
[2024-12-30 20:03] LABS: Bacteria 0 SEEN /hpf (None Seen); Mucous, Urine 0 SEEN /hpf (<or=2+); Squamous Epithelial Cells - UA 0 SEEN /hpf (5-10)
[2024-12-30 20:06] LABS: Color, Urine Yellow (Yellow); Glucose, Dipstick Normal (Normal); Ketone-Dipstick Negative (Negative); Leukocyte Esterase-Dipstick 25 /ul (Negative); Nitrite-Dipstick Negative (Negative); Occult Blood-Urine Negative /ul (Negative); Protein-Dipstick 30 mg/dl (Negative); Urine Bilirubin Dipstick Negative (Negative); Urine Clarity Clear (Clear); Urine Urobilinogen Normal (Normal)
--- NOTE | 2024-12-30 20:07 | RAD_ITS ---
PROCEDURE: CHEST 1 VIEW (PORTABLE) 12/30/2024 REASON FOR EXAM: COPD TECHNIQUE: Frontal view of the chest. COMPARISON: 12/20/2024 FINDINGS: Hardware: None Heart: Heart size is moderately enlarged. Lungs: The lungs are clear. Bones: The bones are unremarkable. Other: RAD/Chest 1 View (Portable) IMPRESSION: No Acute Findings. Reading Location: [id number]
[2024-12-30 20:25] LABS: ALB/GLOB Ratio 1.3 RATIO (0.9-2.4); AST(SGOT) 16 U/L (<=31); Alanine Aminotransfer ALT/SGPT 6 U/L (<=34); Albumin, Serum 3.8 g/dL (3.4-4.8); Alkaline Phosphatase 97 U/L (35-104); Anion Gap 9 (5-15); BUN 14 mg/dL (4-19); BUN/Creat Ratio 16.3 RATIO (10-20); Calcium,Total 9.5 mg/dL (7.6-11.0); Carbon Dioxide 29.7 mmol/L (21.0-32.0); Chloride 103 mmol/L (98-108); Creatinine, Serum 0.84 mg/dL (0.70-1.20); EST Glomerular Filtration Rate 76 (>60); Estimated Creatinine Clearance 62.99 ml/min (50-250); Globulin 2.9 g/dL (2.2-4.2); Glucose 99 mg/dL (70-99); Lipase 13 U/L (13-75); Potassium 3.7 mmol/L (3.3-5.1); Protein, Total 6.8 g/dL (5.9-8.4); Sodium Level 142 mmol/L (133-145)
[2024-12-30 20:46] LABS: Red Blood Cells-Urine 0-5 SEEN /hpf (0-5); White Blood Cells 0-5 SEEN /hpf (0-5)
[2024-12-30 21:00] VITALS: BP 141/92; PULSE 81; RESP 16; O2SAT 95
[2024-12-30 21:52] VITALS: BP 137/72; PULSE 89; RESP 16; TEMP 37; O2SAT 95
== END 2024-12-30 21:53 | disposition home or self-care (01) ==
PROVIDERS: Emergency Provider Emergency Medicine; PCP Internal Medicine; Visit Provider Emergency Medicine
DX: R10.12 Left upper quadrant pain (principal); I11.0 Hypertensive heart disease with heart failure; I50.42 Chronic combined systolic (congestive) and diastolic (congestive) heart failure; J43.9 Emphysema, unspecified; I25.10 Atherosclerotic heart disease of native coronary artery without angina pectoris; I25.2 Old myocardial infarction; E78.00 Pure hypercholesterolemia, unspecified; F17.210 Nicotine dependence, cigarettes, uncomplicated; Z90.49 Acquired absence of other specified parts of digestive tract; Z79.51 Long term (current) use of inhaled steroids; Z79.899 Other long term (current) drug therapy; Z86.73 Personal history of transient ischemic attack (TIA), and cerebral infarction without residual deficits
CPT/HCPCS: 71045; 74176; 80053; 81001; 83690; 85025; 93005; 96374; 99284; A4216

== ENCOUNTER 2025-01-10 15:14 | Emergency (ER) | payer MEDICARE, MEDICAID, SELFPAY ==
[2025-01-10 15:15] VITALS: BP 160/97; PULSE 70; RESP 17; TEMP 36.7; O2SAT 92; BMI 35.1
--- NOTE | 2025-01-10 15:39 | ED.VIS.GI ---
HPI HPI - GI History of Present Illness Chief Complaint: Abd Pain Informant: patient Abdominal Pain/Flank Pain Onset: Month(s) Context: Gradual Onset Timing: Continuous Quality: Aching Location: Left Flank Current Severity: Mild Maximum Severity: Moderate Worsened by: Nothing Relieved by: Nothing Nausea/Vomiting/Emesis GI Symptom: Negative for Nausea or Vomiting Diarrhea/Melena/Hematochezia GI Symptom: Negative for Diarrhea, Melena or Hematochezia Associated Symptoms Associated Symptoms: Negative for Dysuria, Frequency, Hematuria or Urgency Narrative Narrative: 61-year-old female history of chronic pain, CHF, TIA, COPD on O2 at home, hiatal hernia. Complaining of about chronic left flank pain. She has had it for months or longer. She was just seen in the emergency department at the end of last month had an extensive workup including a CAT scan without any specific cause for her pain. She is on chronic pain medication at home and uses [facility]. She denies any change in the pain. She denies any nausea, vomiting or diarrhea. She denies any dysuria or hematuria. She denies any fever. Nothing particular makes the pain better or worse. Prior similar symptoms: Yes Recent Illness/Hospitalization: No PFSH PFSH Medical History Chronic pain Kidney disease Asthma Irregular heart beat Congestive heart failure (CHF) TIA (transient ischemic attack) Wears glasses Post-menopausal Arthritis History of renal disease High cholesterol DVT (deep venous thrombosis) Easy bruising Excessive bleeding Back pain Injury of back History of ulceration Difficulty chewing Gastric reflux Shortness of breath on exertion Hoarseness Chronic cough Leg cramps History of pain when walking History of edema History of echocardiogram History of stress test Cardiology follow-up encounter History of CHF (congestive heart failure) History of irregular heartbeat Chest pain Bullous emphysema COPD with asthma Esophagitis, unspecified without bleeding Unspecified combined 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 Other chronic pain Elevated troponin Sustained SVT Depression Osteoporosis Kidney stones Smoker Myocardial infarct History of non-ST elevation myocardial infarction (NSTEMI) (09/01/21) Essential hypertension Old anterior wall myocardial infarction Ischemic cardiomyopathy Opiate dependence Anxiety and depression TIA (transient ischemic attack) Obesity (BMI 30.0-34.9) EVELYN (obstructive sleep apnea) Personal history of transient ischemic attack (TIA), and cerebral infarction without residual deficits COPD (chronic obstructive pulmonary disease) Calculus of left kidney GERD (gastroesophageal reflux disease) Hyperlipidemia Atherosclerotic heart disease of [place] coronary artery without angina pectoris Tobacco abuse Home Medications ?Medication ?Instructions ?Recorded ?Last Taken ?Type inhalational spacing device #1 ea 02/17/23 Unknown Rx (Aerochamber MV spacer) tiotropium bromide 2.5 2 puff inhalation DAILY #4 grams 02/17/23 09/27/24 Rx mcg/actuation mist for inhalation (Spiriva Respimat) lorazepam 1 mg tablet (Ativan) 1 mg PO TID PRN anxiety 07/16/23 09/27/24 History gabapentin 400 mg capsule 400 mg PO Q6H 07/29/23 09/27/24 History nitroglycerin 0.4 mg sublingual 0.4 mg buccal Q5M PRN chest pain 07/29/23 Unknown History tablet sucralfate 1 gram tablet 1 g PO Q8H 07/29/23 09/27/24 History melatonin 3 mg capsule 3 mg PO QHS 09/05/23 09/27/24 History albuterol 90 mcg-budesonide 80 1 - 2 inh inhalation BID PRN 09/28/24 09/27/24 History mcg/actuation HFA aerosol inhaler shortness of breath (Airsupra) atorvastatin 40 mg tablet 40 mg PO QHS 09/28/24 09/27/24 History bisacodyl 5 mg tablet,delayed 5 mg PO DAILY PRN constipation 09/28/24 Unknown History release cholecalciferol (vitamin D3) 125 125 mcg PO DAILY 09/28/24 09/27/24 History mcg (5,000 unit) capsule hydrocodone-acetaminophen 5-325mg 1 tab PO Q4H 09/28/24 09/27/24 History 5mg-325mg lisinopril 5 mg tablet 5 mg PO DAILY 09/28/24 09/27/24 History oxycodone myristate 18 mg capsule 18 mg PO BID 09/28/24 09/27/24 History sprinkle extended release 12hr(DON'T CRUSH) (Xtampza ER) polyethylene glycol 3350 17 17 g PO BID 09/28/24 09/27/24 History gram/dose oral powder promethazine 25 mg tablet 25 mg PO PRN PRN nausea and 09/28/24 Unknown History vomiting budesonide-formoterol HFA 160 1 puff inhalation BID #10.2 grams 09/30/24 Unknown Rx mcg-4.5 mcg/actuation aerosol inhaler (Symbicort) carvedilol 25 mg tablet 25 mg PO BID #120 tabs 10/04/24 Unknown Rx furosemide 40 mg tablet 40 mg PO QDAY #90 tabs 10/04/24 Unknown Rx Allergy/AdvReac Type Severity Reaction Status Date / Time Iodinated Contrast Media Allergy SOB Verified 01/10/25 16:02 (iodine contrast) Family History Mother Hypertension CAD (coronary artery disease) CVA (cerebral vascular accident) Myocardial infarction Grandmother Myocardial infarction Surgical History History of cholecystectomy Hx of esophagogastroduodenoscopy History of cardiac catheterization History of hysterectomy History of left heart catheterization (01/20/22) History of total hysterectomy Hx of appendectomy Social History household members: none Smoking Status: Current some day smoker tobacco type: cigarettes alcohol intake: never substance use type: does not use ROS ROS ED ROS Narrative Chronic left flank pain. Constitutional Constitutional ED: Denies chills or fever(s) ENT ENT ED: Denies ear pain Cardiovascular Cardiovascular: Denies chest pain Respiratory/Chest Respiratory/Chest: Denies cough or dyspnea Gastrointestinal Gastrointestinal: Reports abdominal pain; Denies constipation, diarrhea, melena, nausea or vomiting Genitourinary Genitourinary ED: Denies dysuria or hematuria Musculoskeletal Musculoskeletal: Denies arthralgias Integumentary Denies abscess Neurologic Neurologic: Denies headache(s) Psychiatric Psychiatric: Reports anxiety Endocrine Endocrinology: Denies polydipsia or polyphagia Hematologic/Lymphatic Hematologic/Lymphatic: Denies easy bleeding Allergic/Immunologic Allergic/Immunologic ED: Denies mouth swelling, tongue swelling or urticaria EXAM Physical Exam Narrative Exam Narrative: Well-appearing 69-year-old female. Sitting upright in bed. Vital signs stable afebrile. Pulse ox on 3 L 90% no hypoxia. No distress. H EENT exam pupils round react to light. Moist mucous very benign exam. Membranes. Neck nontender no JVD. No lymphadenopathy. Lungs clear to auscultation bilaterally. Heart regular rate and rhythm rate about 70 no murmur. Chest wall ribs nontender. Back nontender. Abdomen soft, nontender, nondistended normal bowel sounds without peritoneal signs. There is no hernia or mass. No distention or obstruction. Skin on her abdomen and back is unremarkable. No rashes. Moving all 4 extremities. Nontender no edema. Normal waistline joiner strength. Normal dorsi plantarflexion. She is awake and alert. She is answering questions and following commands. She seems emotionally upset and anxious but she is in no physical distress. Const Vital Signs: 01/10/25 15:15 01/10/25 16:36 01/10/25 17:24 Temperature 98.0 F 98.0 F Temperature Source Oral Temporal Pulse Rate 70 62 66 Respiratory Rate 17 17 16 Blood Pressure 160/97 H 110/65 102/69 Blood Pressure Mean 118 80 80 Pulse Ox 92 94 94 Oxygen Delivery Method Nasal Cannula Room Air Nasal Cannula Oxygen Flow Rate (L/min) 3 3 3 Positive well nourished and well developed; Negative for cachectic, contractures or unkempt General Appearance ED: well developed and NAD; Negative for unkempt, cachectic, contractures or pallor Nutritional Appearance: Negative for cachectic HEENT Reports moist mucous membranes normocephalic and atraumatic Eyes PERRL and EOMs intact bilaterally Neck no lymphadenopathy, supple and no JVD Resp normal respiratory effort and clear to auscultation bilaterally Cardio regular rate, regular rhythm, S1 normal heart sound, S2 normal heart sound and no murmurs GI non-tender, non-distended and no masses Inspection: Negative for abdominal distention Auscultation: normoactive bowel sounds Palpation: soft; Negative for tender, guarding, hernia, mass or rebound tenderness present Back/Spine no CVA tenderness General Back: Negative for CVA tenderness Cervical Spine: Negative for cervical spine tenderness Thoracic Spine / Upper Back: Negative for thoracic spinal tenderness Lumbar Spine / Lower Back: Negative for lumbar spinal tenderness Extremity full ROM General Extremety ED: Negative for edema or tenderness General Extremity: Negative for edema Neuro CN's II-XII intact bilaterally and moves all extremities Sensorium / Orientation: alert, oriented to person, oriented to place and oriented to time; Negative for orientation impaired, confused or lethargic Motor Exam: strength 5/5 throughout Psych mental status grossly normal and thought process normal Appearance: Negative for unkempt Mood & Affect: depressed and anxious Skin no wounds General Skin Exam: Negative for jaundice or pallor Lesions: no lesions Rashes: no rashes Trauma: Negative for abrasion Nails: Negative for discolored MDM MDM MDM Narrative Medical decision making narrative: 69-year-old female history of chronic pain. Presents with chronic left flank pain. Exam is completely benign. Had a workup about 11 days ago that was negative including a CAT scan, labs and urinalysis. She will be given 4 mg of morphine for pain. I will get screening labs I do not think she needs any imaging. If the workup is negative she will be discharged home. She already has [facility] at home for pain. Repeat exam at 6:22 PM. Patient want to be discharged home. She was initially given pain medication. Explained to her chronic pain we would not keep treating with narcotics plus she has pain medication at home. To follow-up with her primary care physician and/or her pain management doctor. Her abdomen again is benign at this time. History & Record Review Discussion w/independent historian: Patient Additional record(s) reviewed:: Prior inpatient record, Prior outpatient record, Prior ED visit and Prior labs Lab Data Attestation: I reviewed the patient's lab results. Lab results narrative: CBC unremarkable. White count of 5. H&H 13 and 41. Platelets 188. Electrolytes show gap 8. Normal BUN and creatinine 11 and 0.8. Glucose 94. Liver enzymes normal. UA normal. No white or red cells. No bacteria or nitrites. Labs are similar to prior and no significant changes. Labs: Laboratory Results - last 24 hr 01/10/25 01/10/25 15:31 16:14 WBC 5.7 RBC 4.26 Hgb 13.7 Hct 41.6 MCV 97.7 MCH 32.2 H MCHC 32.9 RDW Std Deviation 47.3 H RDW Coeff of Sariah 13.2 Plt Count 188 MPV 9.9 Immature Gran % (Auto) 0.200 Neut % (Auto) 52.1 Lymph % (Auto) 35.8 [place] % (Auto) 8.2 Eos % (Auto) 3.2 Baso % (Auto) 0.5 Absolute Neuts (auto) 3.0 Absolute Lymphs (auto) 2.04 Nucleated RBC % 0 Sodium 140 Potassium 4.2 Chloride 102 Carbon Dioxide 29.1 Anion Gap 8 BUN 11 Creatinine 0.80 Estim Creat Clear Calc 66.30 Est GFR (MDRD) Non-Af 80 BUN/Creatinine Ratio 13.3 Glucose 94 Calcium 9.5 Total Bilirubin 0.36 AST 15 ALT 6 Alkaline Phosphatase 100 Total Protein 6.6 Albumin 3.7 Globulin 2.9 Albumin/Globulin Ratio 1.3 Urine Color Yellow Urine Clarity Clear Urine pH 6.0 Ur Specific [place] 1.020 Urine Protein 30 H Urine Glucose (UA) Normal Urine Ketones Negative Urine Occult Blood Negative Urine Nitrite Negative Urine Bilirubin Negative Urine Urobilinogen 1 H Ur Leukocyte Esterase Negative Urine RBC 0 SEEN Urine WBC 0-5 SEEN Ur Squamous Epith Cells 0-5 SEEN Urine Bacteria 0 SEEN Urine Mucus 0 SEEN Discharge Plan Triage Chief Complaint: Abd Pain ED Provider: Javon Reyes Dx/Rx/DC Orders Clinical Impression: Acute flank pain, History of chronic back pain, History of COPD Instructions: Abdominal Pain Prescriptions: No Action Spiriva Respimat 2.5 mcg/actuation mist 2 puff inhalation DAILY Qty: 4 11RF (DME) Aerochamber MV Spacer See Rx Instructions .ROUTE .MEDSUPPLY Qty: 1 0RF Rx Instructions: As directed lorazepam [Ativan] 1 mg tablet 1 mg PO TID PRN (Reason: anxiety) furosemide 40 mg tablet 40 mg PO QDAY Qty: 90 3RF carvedilol 25 mg tablet 25 mg PO BID Qty: 120 3RF Rx Instructions: must administer with a meal/food melatonin 3 mg capsule 3 mg PO QHS gabapentin 400 mg capsule 400 mg PO Q6H nitroglycerin 0.4 mg tablet, sublingual 0.4 mg buccal Q5M PRN (Reason: chest pain) sucralfate 1 gram tablet 1 g PO Q8H promethazine 25 mg tablet 25 mg PO PRN PRN (Reason: nausea and vomiting) Xtampza ER 18 mg cap,sprinkl,ER12hr(DONT CRUSH) 18 mg PO BID Patient Comments: [NO ORIGINAL SIG] hydrocodone-acetaminophen 5-325 mg tablet 1 tab PO Q4H Airsupra 90-80 mcg/actuation HFA aerosol inhaler 1 - 2 inh INHALATION BID PRN (Reason: shortness of breath) Patient Comments: [NO ORIGINAL SIG] atorvastatin 40 mg tablet 40 mg PO QHS bisacodyl 5 mg tablet,delayed release (DR/EC) 5 mg PO DAILY PRN (Reason: constipation) Patient Comments: [NO ORIGINAL SIG] polyethylene glycol 3350 17 gram/dose powder 17 g PO BID cholecalciferol (vitamin D3) 125 mcg (5,000 unit) capsule 125 mcg PO DAILY lisinopril 5 mg tablet 5 mg PO DAILY budesonide-formoterol [Symbicort] 160-4.5 mcg/actuation HFA aerosol inhaler 1 puff inhalation BID Qty: 10.2 0RF Primary Care Provider: Sandy Barbosa Referrals: Sandy Barbosa MD [Primary Care Provider] - As Needed Activity Restrictions/Additional Instructions: All your blood work today looked good. Your urine was clean with no signs of infection or kidney stone. Follow-up with your doctor as needed. Use your pain medication that you use at home. Print Language: Mexican Disposition Disposition: Home, Self Care
[2025-01-10] MEDS: Morphine 4 MG/ML Syringe IV (15:55)
[2025-01-10] MEDS: Ondansetron 4 MG/2 ML Vial IV (15:55)
[2025-01-10 16:24] LABS: Bacteria 0 SEEN /hpf (None Seen); Mucous, Urine 0 SEEN /hpf (<or=2+); Red Blood Cells-Urine 0 SEEN /hpf (0-5)
[2025-01-10 16:36] VITALS: BP 110/65; PULSE 62; RESP 17; TEMP 36.7; O2SAT 94
[2025-01-10 16:58] LABS: ALB/GLOB Ratio 1.3 RATIO (0.9-2.4); AST(SGOT) 15 U/L (<=31); Absolute Lymphocyte Count 2.04 X10^3/uL (0.83-4.51); Alanine Aminotransfer ALT/SGPT 6 U/L (<=34); Albumin, Serum 3.7 g/dL (3.4-4.8); Alkaline Phosphatase 100 U/L (35-104); Anion Gap 8 (5-15); BUN 11 mg/dL (4-19); BUN/Creat Ratio 13.3 RATIO (10-20); Basophil# 0.03 X10^3/uL; Basophil% 0.5 % (0-1); Calcium,Total 9.5 mg/dL (7.6-11.0); Carbon Dioxide 29.1 mmol/L (21.0-32.0); Chloride 102 mmol/L (98-108); EST Glomerular Filtration Rate 80 (>60); Eosinophil# 0.18 X10^3/uL; Eosinophils% 3.2 % (0-5); Globulin 2.9 g/dL (2.2-4.2); Glucose 94 mg/dL (70-99); Hematocrit 41.6 % (37-47); Hemoglobin 13.7 g/dL (12.0-15.0); Lymphocyte # 2.04 X10^3/ul (0.83-4.51); Lymphocyte % 35.8 % (19-41); Mean Corp Hgb Conc 32.9 g/dL (32-36); Mean Corpuscular Hgb 32.2 pg (27.0-32.0); Mean Corpuscular Volume 97.7 fL (81-99); Mean Platelet Vol. 9.9 fl (6.2-12.0); Monocyte# 0.47 X10^3/uL; Monocyte% 8.2 % (0-10); NRBC Flagged by Analyzer 0 % (0-5); Neutrophil # 2.97 X10^3/uL (2.7-7.7); Neutrophil % 52.1 % (47-70); Platelet Count 188 K/mm3 (150-450); Potassium 4.2 mmol/L (3.3-5.1); Protein, Total 6.6 g/dL (5.9-8.4); RBC Distribution Width CV 13.2 % (11.6-14.6); RBC Distribution Width SD 47.3 fl (35.1-43.9); Red Blood Count 4.26 M/mm3 (4.2-5.4); Sodium Level 140 mmol/L (133-145); Total Bilirubin 0.36 mg/dL (0.00-1.30); White Blood Count 5.7 K/mm3 (4.4-11.0)
[2025-01-10 17:11] LABS: Color, Urine Yellow (Yellow); Glucose, Dipstick Normal (Normal); Ketone-Dipstick Negative (Negative); Leukocyte Esterase-Dipstick Negative /ul (Negative); Nitrite-Dipstick Negative (Negative); Occult Blood-Urine Negative /ul (Negative); Protein-Dipstick 30 mg/dl (Negative); Urine Bilirubin Dipstick Negative (Negative); Urine Clarity Clear (Clear); Urine Urobilinogen 1 mg/dl (Normal)
[2025-01-10 17:21] LABS: Squamous Epithelial Cells - UA 0-5 SEEN /hpf (5-10); White Blood Cells 0-5 SEEN /hpf (0-5)
[2025-01-10 17:24] VITALS: BP 102/69; PULSE 66; RESP 16; O2SAT 94
== END 2025-01-10 18:31 | disposition home or self-care (01) ==
PROVIDERS: Emergency Provider Emergency Medicine; PCP Internal Medicine; Visit Provider Emergency Medicine
DX: R10.9 Unspecified abdominal pain (principal); I11.0 Hypertensive heart disease with heart failure; I50.40 Unspecified combined 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; J44.9 Chronic obstructive pulmonary disease, unspecified; E78.00 Pure hypercholesterolemia, unspecified; I25.10 Atherosclerotic heart disease of native coronary artery without angina pectoris; M54.9 Dorsalgia, unspecified; I25.2 Old myocardial infarction; G89.29 Other chronic pain; F17.210 Nicotine dependence, cigarettes, uncomplicated; Z99.81 Dependence on supplemental oxygen; Z79.51 Long term (current) use of inhaled steroids; Z79.899 Other long term (current) drug therapy; Z86.73 Personal history of transient ischemic attack (TIA), and cerebral infarction without residual deficits
CPT/HCPCS: 80053; 81001; 85025; 96374; 96375; 99285; A4216; J2405

== ENCOUNTER → 2025-01-18 | Outpatient (CLI) | payer MEDICARE, MEDICAID, SELFPAY ==
[2025-01-18 22:10] LABS: Amphetamine Urine NEGATIVE (<1000 ng/mL); Barbiturate Urine NEGATIVE (< 200 ng/mL); Benzodiazepine Urine PRESUMPTIVE POSITIVE (< 200 ng/mL); Buprenorphine Urine NEGATIVE (< 200 ng/mL); Cocaine Urine NEGATIVE (< 300 ng/mL); Fentanyl, Urine NEGATIVE; Methadone Urine NEGATIVE (< 300 ng/mL); Opiates Urine PRESUMPTIVE POSITIVE (< 300 ng/mL); Oxycodone, Urine PRESUMPTIVE POSITIVE (< 100 ng/mL); PCP Urine NEGATIVE (< 25 ng/mL); THC Urine NEGATIVE (< 50 ng/mL)
== END | disposition home or self-care (01) ==
LOC: LAB 17:04
PROVIDERS: PCP Internal Medicine; Referring Provider Anesthesiology Pain Medicine; Visit Provider Anesthesiology Pain Medicine
DX: F11.20 Opioid dependence, uncomplicated (principal)
CPT/HCPCS: 80307

== ENCOUNTER 2025-05-26 06:09 | Inpatient (IN) | payer MEDICARE, MEDICAID, SELFPAY ==
[2025-05-26] VITALS (14 sets, daily range): BP systolic 106–163; BP diastolic 76–114; PULSE 65–91; RESP 16–24; TEMP 35.9–36.7; O2SAT 93–100; BMI 33.5; BMI 29.0
[2025-05-26] MEDS: DiphenhydrAMINE 50 MG/ML Syringe 12.5 MG IV (06:43)
[2025-05-26 06:47] LABS: Hematocrit 40.5 % (37-47); Hemoglobin 13.4 g/dL (12.0-15.0); Immature Granulocytes Count 0.020 X10^3/uL (0.0-0.0); Mean Corp Hgb Conc 33.1 g/dL (32-36); Mean Corpuscular Volume 97.6 fL (81-99); Mean Platelet Vol. 9.8 fl (6.2-12.0); NRBC Flagged by Analyzer 0 % (0-5); Platelet Count 230 K/mm3 (150-450); RBC Distribution Width CV 14.1 % (11.6-14.6); RBC Distribution Width SD 50.5 fl (35.1-43.9); Red Blood Count 4.15 M/mm3 (4.2-5.4); White Blood Count 8.4 K/mm3 (4.4-11.0)
--- NOTE | 2025-05-26 06:48 | RAD_ITS ---
PROCEDURE: CHEST 1 VIEW (PORTABLE) 05/26/2025 REASON FOR EXAM: CHEST PAIN TECHNIQUE: Frontal view of the chest. COMPARISON: Chest x-ray 12/30/2024. FINDINGS: Hardware: Monitor electrodes overlie the chest. Heart: Mild cardiomegaly. Lungs: Perihilar airspace opacities may represent CHF, pulmonary edema or pneumonia. Obliteration of the right costophrenic angle consistent with small pleural effusion. No pneumothorax. Bones: No acute bony abnormalities. Soft tissues: No soft tissue abnormalities. RAD/Chest 1 View (Portable) IMPRESSION: Perihilar airspace opacities may represent CHF, pulmonary edema or pneumonia. Small pleural effusion. Reading Location: [id number]
[2025-05-26 07:05] LABS: Anion Gap 9 (5-15); BUN 16 mg/dL (4-19); BUN/Creat Ratio 18.1 RATIO (10-20); Calcium,Total 9.2 mg/dL (7.6-11.0); Carbon Dioxide 26.6 mmol/L (21.0-32.0); Chloride 109 mmol/L (98-108); Estimated Creatinine Clearance 57.50 ml/min (50-250); Glucose 122 mg/dL (70-99); Magnesium 2.2 mg/dL (1.5-2.2); Potassium 4.2 mmol/L (3.3-5.1); Pro- Brain NATRIURETIC PEPTIDE 2936 pg/mL (<=900); Troponin T High Sensitivity 18 ng/L (<=14)
--- OUTSIDE RECORDS SUMMARY | 2025-05-26 07:17 | XMS RPT_ITS | CCD ---
Author Organization [facility] Care Team Providers Care Furniture Packer Name Role Phone Kennedy NGUYEN, Alessio Cali Unavailable Emily Cook Unavailable Unavailable Emily Cook Unavailable Unavailable Unavailable Primary Care Provider Unavailabl e Care Physician, No Primary Primary Care Provider Unavailable Dr. Darrell Hathaway Emergency Provider Dr. Freda Nolasco Admit Provider Dr. Freda Nolasco Attending Provider [phone] Dr. Freda Nolasco Other Provider Dr. Ken Banda Other Provider Dr. Ken Banda Attending Provider Dr. Jones Gregory Other Provider Unavailable Dr. Rey Curtis Attending Provider Dr. Jones Gregory Attending Provider Unavailable Unavailable Primary Care Provider Unavailabl e Care Physician, No Primary Primary Care Provider Unavailable Dr. Ross Lou Emergency Provider Dr. Thor Daniel Admit Provider Dr. Thor Daniel Attending Provider [phone] Thor Daniel Other Provider Dr. Danny Best Attending Provider [phone] Thor Daniel Referring Provider Dr. Ken Banda Other Provider Dr. Brooks Crespo Attending Provider Dr. Brooks Crespo Other Provider Dr. Je Torres Other Provider Akshat TRAINING MANAGER, TRAINING MANAGER-C Yahaira Other Provider Dr. Freda Nolasco Other Provider Joyce RIBERA, PA Alessio Humphreys Attending Provider Dr. Freda Nolasco Attending Provider Dr. Jones Gregory Other Provider Unavailable Dr. Sudhir Ochoa Primary Care Provider João Bueno Attending Provider Unavailable Dr. Jones Gregory Attending Provider Unavailable Dr. Sudhir Ochoa Primary Care Provider Dr. Sudhir Ochoa Referring Provider Leyla PA, PA Edna Attending Provider Dr. Adryan Sharp Attending Provider [phone] Adryan Sharp Referring Provider [phone] Adryan Sharp Other Provider Unavailable Primary Care Provider Aditi Galvan MD, Gabriel Jacobo Primary Care Provider Dr. Sudhir Ochoa Primary Care Provider Dr. Sudhir Ochoa Referring Provider Leyla PA, PA Edna Attending Provider Dr. Adryan Sharp Attending Provider Dr. Adryan Sharp Referring Provider [phone] Adryan Sharp Other Provider Dr. Don Funk Attending Provider Dr. Don Funk Referring Provider Dr. Sudhir Ochoa Primary Care Provider Dr. Don Funk Attending Provider Dr. Don Funk Referring Provider Dr. Clyde Serrano Emergency Provider Care Physician, No Primary Primary Care Provider Unavailable Dr. Gloria Madrid Admit Provider Dr. Gloria Madrid Attending Provider Dr. Gloria Madrid Other Provider Dr. Arnold Buck Other Provider Dr. Arnold Buck Attending Provider Dr. Gabriel Galvan Primary Care Provider Familia, Dr. Gabriel Jacobo Referring Provider Good, Dr. Don Honeycutt Attending Provider Good, Dr. Don Honeycutt Referring Provider Good, Dr. Don Honeycutt Other Provider Dr. Je Torres Attending Provider Dr. Gabriel Galvan Primary Care Provider BACILIO Farias Attending Provider Friend, Dr. Cameron Attending Provider Dr. Gabriel Galvan Primary Care Provider Dr. Gabriel Galvan Referring Provider Dr. Rakesh Martinez Referring Provider Dr. Rakesh Martinez Other Provider Mahendra TRAINING MANAGER, TRAINING MANAGER-C Nora Primary Care Provider Dr. Gabriel Alvarez Primary Care Provider Dr. Gabriel Galvan Referring Provider Dr. Rakesh Martinez Attending Provider Dr. Rakesh Martinez Referring Provider [phone] Dr. Rakesh Martinez Other Provider Mahendra TRAINING MANAGER, TRAINING MANAGER-C Nora Primary Care Provider Unav ailable Mahendra TRAINING MANAGER, TRAINING MANAGER-C Nora Referring Provider Unavail able Alonso TRAINING MANAGER, TRAINING MANAGER-C Marsha Attending Provider Gavin TRAINING MANAGER, TRAINING MANAGER-C Marsha Referring Provider Gavin TRAINING MANAGER, TRAINING MANAGER-C Marsha Other Provider [phone] Dr. Ken Banda Attending Provider Dr. Gabriel Galvan Primary Care Provider Dr. Gabriel Galvan Referring Provider Dr. Rakesh Martinez Attending Provider [phone] Dr. Rakesh Martinez Referring Provider [phone] FriendDr. Cameron Other Provider [phone] Mahendra TRAINING MANAGER, TRAINING MANAGER-C Nora Primary Care Provider Unav ailable Mahendra TRAINING MANAGER, TRAINING MANAGER-C Nora Referring Provider Unavail able Gavin TRAINING MANAGER, TRAINING MANAGER-C Marsha Attending Provider Gavin TRAINING MANAGER, TRAINING MANAGER-C Marsha Referring Provider Gavin TRAINING MANAGER, TRAINING MANAGER-C Marsha Other Provider [phone] Dr. Ken Banda Attending Provider Dr. Jose D Villanueva Attending Provider Dr. Rakesh Martinez Attending Provider [phone] Dr. Gabriel Galvan Primary Care Provider Dr. Gabriel Galvan Referring Provider Dr. Gabriel Galvan Primary Care Provider Dr. Gabriel Galvan Referring Provider Dr. Rakesh Martinez Attending Provider [phone] Mahendra TRAINING MANAGER, TRAINING MANAGER-C Nora Primary Care Provider Unav ailable Mahendra TRAINING MANAGER, TRAINING MANAGER-C Nora Referring Provider Unavail able Dr. Rakesh Martinez Other Provider [phone] PHYSICIAN, NOT RECORDED Primary Care Physician U navailable PHYSICIAN, NOT RECORDED Primary Care Unavaila ble RIDER DO, DR MERLINE Abraham Attending Unavailable EMPERATRIZ MARTINEZ, CHUCKY Hanson Primary Care Physician Friend, Dr. Cameron Attending Provider Gabriel Galvan MD Primary Care Provider EMPERATRIZ MARTINEZ, CHUCKY Hanson Primary Care Unavailable AMPARO LARRY, DR MERLINE Abraham Attending Unavailable EMPERATRIZ MARTINEZ, CHUCKY Hanson Primary Care Unavailable TALAMPNEDRA, GABRIEL Jacobo Primary Care Unavailable NERY NAIR Admitting Unavailable BIRDIE HOPSON Attending Unavailable ZARIA PAYTON Consulting Unavailable LO WHITE Attending UnavailGERARD Larsen Referring Unavailable TALAMPNEDRA, GABRIEL D Primary Care Unavailable RUDY, DARRELL P Referring Unavailable TALAMPAS, GABRIEL D Primary Care Unavailable RUDY, DARRELL P Referring Unavailable TALAMPAS, GABRIEL D Primary Care Unavailable PAIGE WINN Admitting Unavailable PAIGE WINN Attending Unavailable MERLINE CHRISTENSEN Referring Unavailable TALAMPAS, GABRIEL D Primary Care Unavailable THUESTAD, ABILIO A Consulting Unavailable Acevedo 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.ALMOND ROASTER, Lyndsey Unavailable Mahendra 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.SHORT RANGE AIR DEFENSE ARTILLERY, Nora Unavailable Bentley NGUYEN, Bimal Unavailable Mahendra 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.SHORT RANGE AIR DEFENSE ARTILLERY, Nora Unavailable Mahendra 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.SHORT RANGE AIR DEFENSE ARTILLERY, Nora Unavailable Familia MARTINEZ, Dr. Gabriel Jacobo Primary Care Provider Dr. Keisha Williamson DO Emergency Provider Julius MARTINEZ, Dr. Castro Admit Provider Julius MARTINEZ, Dr. Castro Other Provider Dr. Jones Gregory MD Attending Provider Unavaila car Gregory MD, Dr. Goldman Other Provider Unavailable Familia MARTINEZ, Dr. Gabriel Jacobo Referring Provider Ever MARTINEZ, Dr. Le Attending Provider [phone] Modesta MARTINEZ, Dr. Barriga Attending Provider Modesta MARTINEZ, Dr. Barriga Emergency Provider Hailey MARTINEZ, Waqas Emergency Provider Hailey MARTINEZ, Waqas Attending Provider Eric MARTINEZ, Dr. Alejandro Emergency Provider Familia MARTINEZ, Dr. Gabriel Jacobo Primary Care Provider [phone] Dr. Keisha Williamson DO Emergency Provider Julius MARTINEZ, Dr. Castro Admit Provider Julius MARTINEZ, Dr. Castro Other Provider Bri MARTINEZ, Dr. Goldman Attending Provider Unavaila ble Bri MARTINEZ, Dr. Goldman Other Provider Unavailable Familia MARTINEZ, Dr. Gabriel Jacobo Referring Provider Ever MARTINEZ, Dr. Le Attending Provider Modesta MARTINEZ, Dr. Barriga Attending Provider Modesta MARTINEZ, Dr. Barriga Emergency Provider Hailey MARTINEZ, Waqas Attending Provider Hailey MARTINEZ, [place] Emergency Provider Eric MARTINEZ, Dr. Alejandro Attending Provider [phone] Eric MARTINEZ, Dr. Alejandro Emergency Provider [phone] Rakesh Martinez DO Attending Provider Adriane MARTINEZ, Dr. Dickinson Attending Provider Adriane MARTINEZ, Dr. Dickinson Referring Provider Talampas, Gabriel D Primary Care Unavailable Linus Byers Attending Unavailable Talampas, Gabriel D Primary Care Unavailable Linus Byers Attending Unavailable Talampas, Gabriel D Primary Care Unavailable Waqas Hart Attending Unavailable Talampas, Gabriel D Primary Care Unavailable Gloria Madrid Attending Unavailable Gloria Madrid Consulting Unavailable Gloria Madrid Admitting Unavailable Jones Gregory Attending Unavailable Jones Gregory Consulting Unavailable Talampas, Gabriel D Primary Care Unavailable Talampas, Gabriel D Referring Unavailable Rey Curtis Attending Unavailable Talampas, Gabriel D Primary Care Unavailable Talampas, Gabriel D Referring Unavailable Rakesh Martinez Attending Unavailable Talampas, Gabriel D Primary Care Unavailable Reodica, Waqas Attending Unavailable Talampas, Gabriel D Primary Care Unavailable Javon Reyes Attending Unavailable Talampas, Gabriel D Primary Care Unavailable Gonsalo Melendez Attending Unavailable Alok Forrest Referring Unavailable BasaliAlok Attending Unavailable Talampas, Gabriel D Primary Care Unavailable Talampas, Gabriel D Primary Care Unavailable Gloria Madrid Consulting Unavailable Gloria Madrid Admitting Unavailable Jones Gregory Attending Unavailable Talampas, Gabriel D Primary Care Unavailable Gudla Ara PETERSEN Attending Unavailable Talampas, Gabriel D Primary Care Unavailable Gudla Ara PETERSEN Attending Unavailable Acevedo 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.ALMOND ROASTER, Lyndsey Unavailable Acevedo 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.ALMOND ROASTER, Lyndsey Unavailable NORA CRESPO Attending Unavailable TALAMPAS, GABRIEL D Primary Care Unavailable TALAMPAS, GABRIEL D Primary Care Unavailable OBED BALBUENA Attending Unavailabl e TALAMPAS, GABRIEL D Primary Care Unavailable RAJIV MUNOZ Attending Unavailable RAJIV MUNOZ Referring Unavailable TALAMPAS, GABRIEL D Primary Care Unavailable NORA CRESPO Referring Unavailable TALAMPAS, GABRIEL D Primary Care Unavailable NORA CRESPO Attending Unavailable TALAMPAS, GABRIEL D Primary Care Unavailable TALAMPAS, GABRIEL D Primary Care Unavailable GRACE CHAUDHARY Attending Unavailable TALAMPAS, GABRIEL D Primary Care Unavailable ACEVEDOLYNDSEY Attending Unavailable TALAMPAS, GABRIEL D Referring Unavailable TALAMPAS, GABRIEL D Primary Care Unavailable TALAMPAS, GABRIEL D Attending Unavailable TALAMPAS, GABRIEL D Primary Care Unavailable TALAMPAS, GABRIEL D Primary Care Unavailable CHUCKY ZEPEDA Referring Unavailable TALAMPAS, GABRIEL D Primary Care Unavailable TALAMPAS, GABRIEL D Primary Care Unavailable NORA CRESPO Referring Unavailable TALAMPAS, GABRIEL D Primary Care Unavailable Allergies Allergy Classification Reported Allergen(s) Allergy Type Date of Onset Reaction(s) Facility Iodine (and Iodine containting drugs) (2 sources) Iodine Drug Allergy 4 Anaphylaxis [facility] (6 sources) morphine; Translations: [MORPHINE] allergy to substance 2 anaphylaxis [facility] Work Phone: (3 sources) NKDA drug allergy 7 [facility] Work Phone: (1 source) Contrast media; Translations: [iodinated radiocontrast agents] Drug allergy Difficulty breathing (finding), Dyspnea (finding), Anaphylaxis (disorder) [facility] (20 sources) Iodine; Translations: [IODINE] Drug Allergy 4 Anaphylaxis [facility] (2 sources) Triiodobenzoic Acids Allergy to substance 5 SOB [facility] Comment on above: 1 YEAR AGO REACTION WHILE AT [facility] (1 source) Iodinated Contrast Media Drug allergy (disorder) 5 [facility] Repository Medications Current Medications Medication Drug Class(es) Dates Sig (Normalized) Sig (Original) Acetaminophen (20 sources) Start: 06-16-2021 acetaminophen (TYLENOL) tablet 650 mg Start: 06-14-2021 acetaminophen (TYLENOL) tablet 650 mg take 2 tablets by mo uth every four hours as needed acetaminophen (TYLENOL) 325 mg tablet Take 650 mg by mouth every 4 hours as needed. Active End: 01-03-2025 take 650 mg rectal route every four hours as needed acetaminophen (TYLENOL) 650 mg suppository 650 mg by RECTAL route every 4 hours as needed. 01/03/2025 Discontinued acetaminophen 325 mg / HYDRO codone bitartrate 5 mg oral tablet (20 sources) Opioid Agonist Start: 09-28-2024 Start: 09-28-2024 Hydrocodone-Ac etaminophen 5-325 mg tablet Active 1 {tbl} PO Q4H September 28, 2024 1:00am Start: 06-17-2023 End: 07-29-2023 Start: 06-17-2023 End: 07-29-2023 Hydrocodone-Acetaminophen 5- 325 mg tablet Discontinued 1 {tbl} PO THREE TIMES A DAY as needed for pain June 17, 2023 12:00am July 29, 2023 9:11pm Start: 06-17-2023 End: 07-29-2023 take 1 tablet by mouth three times daily Hydrocodone-Acetaminophen Discontinued 1 TABLET PO THREE TIMES A DAY June 17, 2023 12:00am July 29, 2023 9:11pm Start: 06-17-2023 End: 07-29-2023 take 1 tablet by rowena th every eight hours as needed HYDROcodone-acetaminophen (NORCO) 5-325 mg per tablet Take 1 tablet by mouth every 8 hours as needed for pain. 0 Active End: 04-11-2024 take 1 tablet by mouth every six hours as needed HYDROcodone-Acetaminophen (NORCO) 7.5-32 5 mg per tablet Take 1 tablet by mouth every 6 hours as needed for pain. 0 04/11/2024 Discontinued acetaminophen 325 mg / oxyCODONE hydrochloride 5 mg oral tablet (20 sources) Opioid Agonist Start: 12-09-2023 End: 12-14-2023 take 1 tablet by mouth every six hours as needed oxyCODONE-acetaminophen (PERCOCET) 5-325 mg tablet Indications: Choledocholithiasis Take 1 tablet by mouth every 6 hours as needed for up to 5 days. 20 tablet 0 12/09/2023 12/14/2023 Active Start: 07-29-2023 End: 09-05-2023 Start: 07-29-2023 End: 09-05-2023 Oxycodone-Acetaminophen (Per cocet) 5-325 mg tablet Discontinued 1 {tbl} PO Q8H as needed for pain 10 2 July 29, 2023 September 05, 2023 8:55pm Start: 07-29-2023 End: 09-05-2023 Start: 07-26-2021 End: 07-26-2021 oxyCODONE-acetaminophen (PER COCET) 5-325 MG per tablet 1 tablet Start: 07-26-2021 End: 07-31-2021 oxyCODONE-acetaminophen (PER COCET) 5-325 MG per tablet Indications: Rib contusion, left, initial encounter , Fall, initial encounter Take 1 tablet by mouth every 6 hours as needed for Pain for up to 5 days. Intended supply: 5 days. Take lowest dose possible to manage pain 20 tablet 0 07/26/2021 07/31/2021 Active Start: 01-02-2017 take 1 tablet by rowena th three times daily PERCOCET 5-325 MG TABS One tablet by mouth three times daily OXYCODONE-ACETAMINOPHEN [id number] Danny Best MD Start: 07-12-2015 End: 07-13-2015 Start: 07-12-2015 End: 07-13-2015 Oxycodone-Acetaminophen 1 TA BLET tablet Discontinued 1 {tbl} PO THREE TIMES A DAY July 12, 2015 1:00am July 13, 2015 6:27pm Start: 07-12-2015 End: 07-13-2015 take 1 tablet by mouth three times daily Oxycodone-Acetaminophen Discontinued 1 TABLET PO THREE TIMES A DAY July 12, 2015 1:00am July 13, 2015 6:27pm Start: 07-12-2015 End: 07-13-2015 Start: 06-21-2012 PERCOCET 5-325 MG TABS As needed OXYCODONE-ACETAMINOPHEN [id number] Danny Best MD Start: 06-21-2012 End: 04-20-2013 PERCOCET 5-325 MG TABS As ne eded OXYCODONE-ACETAMINOPHEN [id number] Danny Best MD Comment on above: Take 1 tablet by rowena th every 6 hours as needed for up to 5 days. Administered Medications Medication Order MAR Action Action Date Dose Rate Site tuberculin skin test, unspecified formulation Given 01/17/2023 tuberculin skin test, unspecified formulation Given 01/24/2023 (2 sources) Administered Med ications Medication Order MAR Action Action Date Dose Rate Site tuberculin skin test, unspecified formulation Given 01/17/2023 tuberculin skin test, unspecified formulation Given 01/24/2023 albuterol 0.833 mg/ml / ipratropium bromide 0.167 mg/ml inhalation solution (1 source) Anticholinergic, beta2-Adrenergic Agonist Start: 06-16-2021 ipratropium-albuterol (DUONEB) nebulizer solution 1 ampule Albuterol-Budesonide (Airsupra) 90-80 mcg/actuation HFA aerosol inhaler (3 sources) Start: 09-28-2024 Albuterol-Budesonide (Airsupra) 90-80 mcg/actuation HFA aerosol inhaler Active 1 - 2 NMA INHALATION TWICE A DAY as needed for shortness of breath September 28, 2024 1:00am albuterol-budesonide HFA (AIRSUPRA) 90-80 mcg/actuation inhaler (10 sources) Start: 11-25-2023 albuterol-budesonide HFA (AIRSUPRA) 90-80 mcg/actuation inhaler Take 2 Puffs by mouth every 2 hours as needed for wheezing/shortness of breath. Do not take more than 12 inhalations in a 24 hour period. 1 Each 11/25/2023 Suspended Start: 11-25-2023 albuterol-bude sonide HFA (AIRSUPRA) 90-80 mcg/actuation inhaler Take 2 Puffs by mouth every 2 hours as needed for wheezing/shortness of breath. Do not take more than 12 inhalations in a 24 hour period. 1 Each 11/25/2023 Active Comment on above: Take 2 Puffs by mout h every 2 hours as needed for wheezing/shortness of breath. Do not take more than 12 inhalations in a 24 hour period. albuterol-budesonid e HFA (AIRSUPRA) 90-80 mcg/actuation inhaler (20 sources) Start: 03-28-2025 albuterol-budesonide HFA (AIRSUPRA) 90-80 mcg/actuation inhaler Inhale 2 puffs as instructed every 2 hours as needed for wheezing/shortness of breath. Do not take more than 12 inhalations in a 24 hour period. 1 each 03/28/2025 Active Start: 09-14-2024 End: 03-28-2025 albuterol-budesonide HFA (AI RSUPRA) 90-80 mcg/actuation inhaler Inhale 2 Puffs as instructed every 2 hours as needed for wheezing/shortness of breath. Do not take more than 12 inhalations in a 24 hour period. 1 Each 09/14/2024 03/28/2025 Discontinued Start: 09-14-2024 albuterol-bude sonide HFA (AIRSUPRA) 90-80 mcg/actuation inhaler Inhale 2 Puffs as instructed every 2 hours as needed for wheezing/shortness of breath. Do not take more than 12 inhalations in a 24 hour period. 1 Each 09/14/2024 Active Start: 05-24-2024 End: 09-14-2024 albuterol-budesonide HFA (AI RSUPRA) 90-80 mcg/actuation inhaler Inhale 2 Puffs as instructed every 2 hours as needed for wheezing/shortness of breath. Do not take more than 12 inhalations in a 24 hour period. 1 Each 5 05/24/2024 09/14/2024 Discontinued Start: 05-24-2024 albuterol-bude sonide HFA (AIRSUPRA) 90-80 mcg/actuation inhaler Inhale 2 Puffs as instructed every 2 hours as needed for wheezing/shortness of breath. Do not take more than 12 inhalations in a 24 hour period. 1 Each 5 05/24/2024 Active Start: 11-25-2023 End: 05-24-2024 albuterol-budesonide HFA (AI RSUPRA) 90-80 mcg/actuation inhaler Take 2 Puffs by mouth every 2 hours as needed for wheezing/shortness of breath. Do not take more than 12 inhalations in a 24 hour period. 1 Each 5 11/25/2023 05/24/2024 Discontinued Start: 11-25-2023 albuterol-bude sonide HFA (AIRSUPRA) 90-80 mcg/actuation inhaler Take 2 Puffs by mouth every 2 hours as needed for wheezing/shortness of breath. Do not take more than 12 inhalations in a 24 hour period. 1 Each 5 11/25/2023 Active amoxicillin 875 mg / clavulanate 125 mg oral tablet (2 sources) Penicillin-class Antibacterial Start: 05-22-2025 End: 05-29-2025 take 1 tablet by mouth twice daily amoxicillin-clavulanate potassium (AUGMENTIN) 875-125 mg per tablet Take 1 tablet by mouth two times a day for 7 days. 14 tablet 05/22/2025 05/29/2025 Active aspirin 81 mg chewable tablet (20 sources) Nonsteroidal Anti-inflammatory Drug Start: 12-08-2023 End: 01-07-2024 take 1 tablet by mouth once daily aspirin 81 mg chewable tablet Take 1 tablet by mouth once daily. 30 tablet 0 12/08/2023 01/07/2024 Active Start: 07-21-2018 End: 09-23-2022 Start: 10-22-2015 aspirin 81 mg oral tablet (chewable) Dose : 81 mg = 1 tab(s), Oral, qDay, # 30 tab(s), 0 Refill(s) Start Date: 10/22/15 Status: Ordered Start: 06-21-2012 take 1 tablet by rowena th once daily ASPIRIN 81 MG TABS One tablet by mouth daily ASPIRIN [id number] Danny Best MD Comment on above: Take 81 mg by mouth once daily. Take 1 tablet by rowena th once daily. atorvastatin 40 mg oral tablet (20 sources) HMG-CoA Reductase Inhibitor Start: End: take 1 tablet by mouth once daily at bedtime atorvastatin (LIPITOR) 40 mg tablet Take 1 tablet by mouth daily at bedtime. 90 tablet 3 03/28/2025 Active Start: 10-03-2016 End: 12-19-2017 Start: 06-21-2012 End: 01-03-2016 take 1 tablet by mouth once daily LIPITOR 20 MG TABS One tablet by mouth daily (patient not taking) ATORVASTATIN CALCIUM [id number] Alessio Cook PA-C Comment on above: Take 40 mg by mouth daily at bedtime. Budesonide-Formoterol (20 sources) Corticosteroid, beta2-Adrenergic Agonist Start: 09-30-2024 Start: 09-30-2024 Budesonide-For moterol (Symbicort) 160-4.5 mcg/actuation HFA aerosol inhaler Active 1 NMA INHALATION TWICE A DAY 10.2 September 30, 2024 9:31am Start: 02-17-2023 End: 09-30-2024 Start: 02-17-2023 End: 09-30-2024 Budesonide-Formoterol (Symbi william) 160-4.5 mcg/actuation HFA aerosol inhaler Discontinued 1 NMA INHALATION TWICE A DAY 10.2 February 17, 2023 12:00am September 30, 2024 9:31am Start: 02-17-2023 Start: 02-17-2023 take 1 puff(s) by in halation twice daily Budesonide-Formoterol (Symbicort) 160-4.5 mcg/actuation HFA aerosol inhaler Active 1 PUFF INHALATION TWICE A DAY 10.2 February 16, 2023 11:00pm Start: 02-17-2023 take 1 puff(s) by in halation twice daily Budesonide-Formoterol (Symbicort) 160-4.5 mcg/actuation HFA aerosol inhaler Active 1 PUFF INHALATION TWICE A DAY 10.2 February 17, 2023 12:00am carvedilol 25 mg oral tablet (20 sources) alpha-Adrenergic Cora, beta-Adrenergic Cora Start: 03-28-2025 take 1 tablet by mouth twice daily at mealtime carvedilol (COREG) 25 mg tablet Take 1 tablet by mouth two times a day with meals. 180 tablet 3 03/28/2025 Active Start: 10-04-2024 Start: 07-07-2024 End: 10-04-2024 Start: 07-29-2023 End: 09-28-2024 Start: 01-20-2022 End: 07-16-2023 Start: 09-02-2021 End: 01-20-2022 Start: 12-30-2017 End: 07-29-2023 Start: 11-16-2017 End: 12-30-2017 Start: 04-13-2017 End: 11-16-2017 take 2 tablets by mouth three times daily Carvedilol 3.125 MG tablet Discontinued 6.25 mg PO THREE TIMES A DAY April 13, 2017 4:52pm November 16, 2017 11:00am Start: 04-13-2017 End: 11-16-2017 take 6.25 mg by mouth three times daily Carvedilol Discontinued 6.25 MG PO THREE TIMES A DAY April 13, 2017 4:52pm November 16, 2017 11:00am Start: 04-20-2013 End: 03-28-2025 take 1 tablet by mouth twice daily at mealtime carvedilol (COREG) 6.25 mg tablet Take 1 tablet by mouth two times a day with meals. 180 tablet 3 03/28/2025 03/28/2025 Discontinued Start: 04-20-2013 End: 11-16-2017 Start: 06-21-2012 take 1 tablet by rowena th twice daily CARVEDILOL 12.5 MG TABS One tablet by mouth twice daily CARVEDILOL [id number] Danny Best MD Comment on above: Take 1 tablet by rowena th twice daily. Per Dr. Best TWICE A DAY Take 6.25 mg by mout h two times a day with meals. cefepime 2000 mg injection (1 source) Cephalosporin Antibacterial Start: 2023 End: 2023 inject 100 mL intravenously every twelve hours cefepime (MAXIPIME) 2 g in D5W 100 mL Inject 100 mL intravenously every 12 hours for 10 days. 2000 mL 0 12/28/2023 01/07/2024 Active cholecalciferol 0.125 mg oral capsule (20 sources) Vitamin D Start: 2024 Start: 04-27-2023 End: 03-28-2025 take 1 capsule by mouth once daily Cholecalciferol, Vitamin D3, 125 mcg (5,000 unit) cap Take 1 capsule by mouth once daily. 90 capsule 3 03/28/2025 Active Comment on above: Take 1 capsule by mo [facility] once daily. clopidogrel 75 mg oral tablet (20 sources) P2Y12 Platelet Inhibitor Start: 08-04-20 End: 03-28-20 take 1 tablet by mouth once daily clopidogrel (PLAVIX) 75 mg tablet Take 1 tablet by mouth once daily. 90 tablet 3 03/28/2025 Active Comment on above: [facility] Take 1 tablet by rowena once daily. Patient should start on December 17, 2023. 1 ml dexamethasone phosphate 10 mg/ml injection (20 sources) Corticosteroid Start: 06-16-20 End: 06-26-20 6 mg, IntraVENous, EVERY 24 HOURS, First dose on 06/16/21 at 2000, For 10 doses Start: 06-15-2021 End: 06-15-2021 dexamethasone (PF) (DECADRON ) injection 10 mg Start: 06-15-2021 End: 06-25-2021 take 6 mg by mouth once daily 6 mg, Oral, DAILY, First dose on 06/15/21 at 0900, For 10 doses Start: 06-15-2021 End: 01-01-2022 Start: 06-14-2021 End: 06-14-2021 dexamethasone (PF) (DECADRON ) injection 6 mg dextromethorphan hydrobromide 2 mg/ml / guaiFENesin 20 mg/ml oral suspension (2 sources) Uncompetitive E-bmnqrr-S-aspartate Receptor Antagonist, Sigma-1 Agonist Start: 06-16-2021 take 5 mL by mouth every four hours as needed for cough 5 mL, Oral, EVERY 4 HOURS PRN, Cough, Starting on 06/16/21 at 0303 Start: 06-14-2021 take 5 mL by mouth e very four hours as needed for cough 5 mL, Oral, EVERY 4 HOURS PRN, Cough, Starting on 06/14/21 at 1552 Diaper,Brief, Adult,Disposab le (DEPEND EASY FIT UNDERGARMENTS) (20 sources) Start: 05-30-2024 Diaper,Brief, Adult,Disposable (DEPEND EASY FIT UNDERGARMENTS) Indications: Stress incontinence, female , OAB (overactive bladder) Size Large pull up. Change depends once every 1-2 hrs. Dx incontinence (788.30) Prolapsed bladder (618.01) 150 Each 5 05/30/2024 Active Start: 05-30-2024 End: 05-30-2024 Diaper,Brief, Adult,Disposab le (DEPEND EASY FIT UNDERGARMENTS) Indications: Stress incontinence, female Size Large pull up. Change depends once every 1-2 hrs. Dx incontinence (788.30) Prolapsed bladder (618.01) 150 Each 5 05/30/2024 05/30/2024 Discontinued docusate sodium 50 mg / sennosides, care home 8.6 mg oral tablet (20 sources) Start: 05-24-2024 End: 03-28-2025 take 1 tablet by mouth once daily in the morning, then take 1 tablet by mouth once daily at bedtime senna-docusate (SENNA PLUS) 8.6-50 mg per tablet Take 1 tablet by mouth every morning AND 1 tablet daily at bedtime. 180 tablet 3 03/28/2025 Active DULoxetine 60 mg delayed release oral capsule (20 sources) Serotonin and Norepinephrine Reuptake Inhibitor Start: 03-28-2025 take 1 capsule by mouth once daily DULoxetine DR (CYMBALTA) 60 mg capsule Take 1 capsule by mouth once daily. 90 capsule 3 03/28/2025 Active Start: 01-03-2025 End: 03-28-2025 take 1 capsule by mouth once daily DULoxetine (CYMBALTA) 40 mg cpDR Take 1 capsule by mouth once daily. 90 capsule 1 01/03/2025 03/28/2025 Discontinued Start: 01-04-2023 End: 01-03-2025 take 1 capsule by mouth once daily DULoxetine (CYMBALTA) 30 mg capsule Take 1 capsule by mouth once daily. 30 capsule 5 09/14/2024 01/03/2025 Discontinued Comment on above: Take 1 capsule by [facility] once daily. Take by mouth. 0.3 ml enoxaparin sodium 100 mg/ml prefilled syringe (2 sources) Low Molecular Weight Heparin Start: 06-16-2021 inject 30 mg by subcutaneous injection twice daily 30 mg, SubCUTAneous, 2 TIMES DAILY, First dose (after last modification) on Thu06/16/21 at 0900 Start: 06-14-2021 inject 30 mg by subc utaneous injection twice daily 30 mg, SubCUTAneous, 2 TIMES DAILY, First dose on Thu06/14/21 at 1800 escitalopram 10 mg oral tablet (3 sources) Serotonin Reuptake Inhibitor Start: 06-19-2021 take 1 tablet by mouth once daily escitalopram (LEXAPRO) 10 MG tablet Take 1 tablet by mouth daily 30 tablet 0 06/19/2021 Active Start: 06-17-2021 escitalopram ( LEXAPRO) tablet 10 mg furosemide 40 mg oral tablet (20 sources) Loop Diuretic Start: 03-28-2025 take 1 tablet by mouth once daily furosemide (LASIX) 40 mg tablet Take 1 tablet by mouth once daily. 03/28/2025 Active Start: 10-04-2024 Start: 07-29-2023 End: 10-04-2024 Start: 07-16-2023 End: 07-29-2023 Start: 01-20-2022 End: 03-28-2025 take 1 tablet by mouth twice daily furosemide (LASIX) 20 mg tablet Take 1 tablet by mouth two times a day. 180 tablet 3 03/28/2025 03/28/2025 Discontinued (Adjust Sig - Block E-Cancel) Start: 01-20-2022 End: 07-16-2023 Comment on above: Take 20 mg by mouth twice daily. gabapentin 400 mg oral capsule (20 sources) Anti-epileptic Agent Start: 07-29-2023 End: 03-23-2026 take 1 capsule by mouth twice daily gabapentin (NEURONTIN) 400 mg capsule Indications: Neuropathy Take 1 capsule by mouth two times a day for 360 days. 180 capsule 3 03/28/2025 03/23/2026 Active Start: 07-29-2023 take 1 capsule by [facility] every six hours Gabapentin 400 mg capsule Active 400 mg PO EVERY 6 HOURS July 29, 2023 1:00am Start: 07-29-2023 take 400 mg by mouth every eight hours Gabapentin Active 400 MG PO Q8H July 29, 2023 1:00am Start: 04-15-2023 End: 01-03-2025 take 1 capsule by mouth three times daily gabapentin (NEURONTIN) 400 mg capsule Indications: Neuropathy Take 1 capsule by mouth three times a day for 180 days. 90 capsule 5 05/24/2024 01/03/2025 Discontinued Start: 06-05-2020 End: 07-29-2023 Start: 06-05-2020 End: 07-29-2023 take 400 mg by mouth twice daily Gabapentin Discontinued 400 MG PO TWICE A DAY July 16, 2023 2:28pm July 29, 2023 8:53pm Start: 06-05-2020 End: 07-29-2023 Start: 08-08-2019 End: 07-16-2023 take 1 capsule by mouth three times daily Gabapentin 300 MG capsule Discontinued 300 mg PO THREE TIMES A DAY 90 January 01, 2022 4:04am July 16, 2023 2:29pm Comment on above: Take 1 capsule by [facility] three times daily for 90 days. Inhalational Spacing Device (Aerochamber Mv) spacer (15 sources) Start: 02-17-2023 Inhalational Spacing Device (Aerochamber Mv) spacer Active 0 .ROUTE .MEDSUPPLY February 16, 2023 11:00pm As directed Start: 02-17-2023 Inhalational S pacing Device (Aerochamber Mv) spacer Active 0 .ROUTE .MEDSUPPLY February 17, 2023 12:00am As directed iv contrast (will be provided with radiology test) (1 source) Start: 01-05-2024 End: 01-06-2024 iv contrast (will be provided with radiology test) CT ABD/PEL -Inject, intravenously, once for 1 dose.No IV access, insert saline lock prior to the beginning of sedation, infusion, injection of imaging exam. Discontinue saline lock post exam. If Pt. has a central line or IVAD, may access for administration according to line specific nursing protocol. Once exam is complete flush line and de-access according to line specific nursing protocol in the CT contrast administration guidelines link. 1 Each 0 01/05/2024 01/06/2024 Active ketoconazole 20 mg/ml medicated shampoo (8 sources) Azole Antifungal Start: 03-28-2025 ketoconazole (NIZORAL) 2 % shampoo Apply to affected area three times a week. 240 mL 5 03/28/2025 Active lactobacillus rhamnosus gg [id number] unt oral capsule (1 source) Start: 06-08-2020 take 1 capsule by mouth once daily Lactobacillus Rhamnosus Gg (Culturelle) 10 billion cell capsule Active 1 CAP PO DAILY June 08, 2020 4:54pm lactulose 667 mg/ml oral solution (1 source) Osmotic Laxative Start: 04-07-2019 take 30 mL by mouth twice daily as needed for constipation lactulose 10 g/15 mL oral syrup TAKE 30ML BY MOUTH TWICE DAILY NEEDED FOR CONSTIPATION Start Date: 04/07/19 Status: Ordered levoFLOXacin 750 mg oral tablet (1 source) Quinolone Antimicrobial Start: 01-26-2022 take 750 mg by mouth once daily Levofloxacin Active 750 MG PO DAILY January 26, 2022 7:45pm lisinopril 5 mg oral tablet (20 sources) Angiotensin Converting Enzyme Inhibitor Start: 05-24-2024 End: 03-28-2025 take 1 tablet by mouth once daily lisinopril (ZESTRIL) 5 mg tablet Take 1 tablet by mouth once daily. 90 tablet 3 03/28/2025 Active Start: 01-20-2022 End: 09-28-2024 Start: 01-20-2022 End: 09-28-2024 take 1 tablet by mouth once daily Lisinopril 2.5 mg tablet Discontinued 2.5 mg PO DAILY January 04, 2023 1:38pm September 28, 2024 5:03pm Start: 11-29-2019 End: 04-15-2023 take 1 tablet by mouth twice daily lisinopril (ZESTRIL, PRINIVIL) 20 mg tablet Take 1 tablet by mouth twice daily. 180 tablet 1 11/29/2019 04/15/2023 Discontinued Start: 11-18-2015 End: 01-20-2022 Start: 11-18-2015 End: 01-20-2022 take 1 tablet by mouth once daily Lisinopril 10 MG tablet Discontinued 10 mg PO DAILY December 12, 2015 12:00am December 20, 2015 6:27pm Start: 11-18-2015 End: 06-08-2020 take 1 tablet by mouth twice daily Lisinopril 10 MG tablet Discontinued 10 mg PO TWICE A DAY November 18, 2015 1:00am June 08, 2020 2:03pm Start: 11-18-2015 End: 01-20-2022 take 1 tablet by mouth three times daily Lisinopril 10 mg tablet Discontinued 10 mg PO THREE TIMES A DAY January 01, 2022 1:56am January 20, 2022 2:12pm Start: 03-16-2015 End: 03-17-2015 take 1 tablet by mouth twice daily Lisinopril 10 MG tablet Discontinued 10 mg PO TWICE A DAY March 16, 2015 12:00am March 17, 2015 1:09pm Start: 06-30-2014 End: 11-11-2014 Start: 06-21-2012 End: 03-17-2015 Start: 06-21-2012 End: 11-11-2014 take 1 tablet by mouth once daily Lisinopril 20 MG tablet Discontinued 20 mg PO DAILY June 30, 2014 12:00am November 11, 2014 1:11pm Comment on above: Take 1 tablet by [facility] twice daily. DAILY Take 2.5 mg by mouth once daily. LORazepam 1 mg oral tablet (20 sources) Benzodiazepine Start: End: take 1 tablet by mouth every eight hours as needed for anxiety and anxiety LORazepam (ATIVAN) 1 mg tablet Indications: Anxiety Take 1 tablet by mouth three times a day as needed for anxiety for up to 90 days. 90 tablet 2 03/28/2025 06/26/2025 Active Start: 07-16-2023 End: 06-07-2024 Start: 07-16-2023 take 1 tablet by [facility] twice daily Lorazepam (Ativan) 1 mg tablet Active 1 MG PO TWICE A DAY July 16, 2023 1:00am Start: 08-21-2016 End: 05-24-2024 take 1 tablet by mouth every six hours as needed LORazepam (ATIVAN) 1 mg tablet Take 1 tablet by mouth every 6 hours as needed. Per counseling center 0 08/21/2016 12/13/2023 Discontinued Start: 01-31-2016 End: 11-16-2017 Start: 01-31-2016 End: 11-16-2017 take 1 mg by mouth twice daily Lorazepam Discontinued 1 MG PO TWICE A DAY January 31, 2016 12:00am November 16, 2017 11:01am Start: 06-21-2012 End: 11-19-2015 Start: 06-21-2012 End: 11-19-2015 Start: 06-21-2012 take 1 tablet by [facility] three times daily as needed LORAZEPAM 2 MG TABS One tablet by mouth three times daily as needed LORAZEPAM [id number] Danny Best MD Comment on above: Take 1 tablet by [facility] every 6 hours as needed. Per counseling center Take 1 mg by mouth t hree times a day. Take 1 mg by mouth e very 6 hours as needed for anxiety. magnesium hydroxide 80 mg/ml oral suspension (20 sources) Start: 05-24-20 End: 03-28-20 25 take 30 mL by mouth once daily as needed for constipation magnesium hydroxide (MILK OF MAGNESIA) 400 mg/5 mL suspension Take 30 mL by mouth once daily as needed for constipation. 118 mL 3 03/28/2025 Active Comment on above: Take 30 mL by mouth once daily as needed for constipation. meclizine hydrochloride 25 mg oral tablet (3 sources) Antiemetic Start: 01-02-20 take 25 mg by mouth every eight hours as needed Meclizine Active 25 MG PO EVERY 8 HOURS NEEDED January 01, 2022 4:03am 24 hr metoprolol succinate 50 mg extended release oral tablet (4 sources) beta-Adrenergic Cora Start: 06-19-20 21 take 1 tablet by mouth once daily metoprolol succinate (TOPROL XL) 50 MG extended release tablet Take 1 tablet by mouth daily 30 tablet 0 06/19/2021 Active Start: 06-16-2021 metoprolol suc cinate (TOPROL XL) extended release tablet 50 mg Start: 06-15-2021 End: 06-15-2021 metoprolol (LOPRESSOR) injec tion 5 mg mirtazapine 15 mg oral tablet (9 sources) Start: 03-28-2025 End: 05-12-2025 take 1 tablet by mouth once daily at bedtime mirtazapine (REMERON) 15 mg tablet Take 1 tablet by mouth daily at bedtime. 30 tablet 2 05/12/2025 Active morphine sulfate 30 mg extended release oral tablet (9 sources) Opioid Agonist Start: 04-07-2019 take 1 tablet by mouth every twelve hours, then take 1 tablet by mouth every twelve hours morphine 30 mg/8 to 12 hr oral tablet, extended release Dose : 30 mg = 1 tab(s), Oral, q12h, 0 Refill(s) Start Date: 04/07/19 Status: Ordered Start: 12-17-2015 End: 09-23-2022 take 1 tablet by mouth every twelve hours MS CONTIN 30 MG CR-TABS One tablet by mouth every 12 hours MORPHINE SULFATE [id number] Delilah Severino RN Comment on above: Take 30 mg by mouth q 12 HR. naproxen 500 mg oral tablet (1 source) Nonsteroidal Anti-inflammatory Drug Start: 07-26-2021 End: 07-31-2021 take 1 tablet by mouth twice daily at mealtime naproxen (NAPROSYN) 500 MG tablet Take 1 tablet by mouth 2 times daily (with meals) for 5 days 10 tablet 0 07/26/2021 07/31/2021 Active nicotine 4 mg chewing gum (20 sources) Cholinergic Nicotinic Agonist Start: 07-29-2023 Start: 07-29-2023 Start: 07-29-2023 Nicotine (Zak crilex) Active 4 MG BUCCAL EVERY 6 HOURS July 29, 2023 12:00am Start: 02-17-2023 End: 03-04-2023 Nicotine (Nicotrol) 10 mg cartridge Discontinued 1 NMA INHALATION ONCE as needed for nicotine cravings February 17, 2023 7:35pm March 04, 2023 11:06am 1 cartridge every 4-8 hours inhaled as needed, substitute for cigarettes. Start: 02-17-2023 End: 03-04-2023 Start: 02-17-2023 End: 02-17-2023 take 10 mg by inhalation once as needed Nicotine (Nicotrol) 10 mg cartridge Discontinued 1 NMA INHALATION ONCE as needed for nicotine cravings February 17, 2023 12:00am February 17, 2023 7:36pm Start: 02-17-2023 End: 03-04-2023 Nicotine (Nicotrol) 10 mg cartridge Discontinued 1 INH INHALATION ONCE February 17, 2023 7:35pm March 04, 2023 11:06am 1 cartridge every 4-8 hours inhaled as needed, substitute for cigarettes. Start: 02-17-2023 End: 02-17-2023 take 10 mg by inhalation once Nicotine (Nicotrol) 10 m g cartridge Discontinued 1 INH INHALATION ONCE February 17, 2023 12:00am February 17, 2023 7:36pm Start: 01-16-2023 End: 04-11-2024 apply 1 dose transdermal route every twenty-four hours nicotine (NICODERM) 14 mg/24 hr Apply 1 Patch as directed every 24 hours. x 2 weeks, then decrease to 7 mg patch 14 Patch 01/16/2023 04/11/2024 Discontinued Start: 01-16-2023 End: 04-11-2024 apply 1 dose transdermal route every twenty-four hours nicotine (NICODERM) 21 mg/24 hr Apply 1 Patch as directed every 24 hours. x 6 weeks, then decrease to the 14 mg patch 42 Patch 01/16/2023 04/11/2024 Discontinued Start: 01-16-2023 End: 04-11-2024 nicotine (NICODERM) 7 mg/24 hr Apply 1 Patch as directed every 24 hours. 17 Patch 01/16/2023 04/11/2024 Discontinued Start: 09-19-2022 End: 01-16-2023 NICOTROL NS 10 mg/mL spry Start: 09-19-2022 take 1 spray(s) nasa l route once daily Nicotine Active 1 SPRAY INTRANASAL DAILY 40 September 19, 2022 1:00am administer into each nostril Start: 09-19-2022 Start: 09-17-2022 End: 09-19-2022 Start: 09-17-2022 End: 09-19-2022 Nicotine 10 mg cartridge Discontinued 1 NMA INHALATION 4 to 8 times per day as needed for nicotine cravings September 17, 2022 1:00am September 19, 2022 5:23pm Start: 09-17-2022 End: 09-19-2022 Comment on above: Apply 1 Patch as dir ected every 24 hours. x 6 weeks, then decrease to the 14 mg patch Apply 1 Patch as dir ected every 24 hours. x 2 weeks, then decrease to 7 mg patch Apply 1 Patch as dir ected every 24 hours. nitrofurantoin, macrocrystals 25 mg / nitrofurantoin, monohydrate 75 mg oral capsule (1 source) Nitrofuran Antibacterial Start: 04-04-20 End: 04-11-20 take 1 capsule by mouth twice daily nitrofurantoin monohydrate and macrocrystal (MACROBID) 100 mg capsule Indications: Acute cystitis without hematuria Take 1 capsule by mouth two times a day for 7 days. 14 capsule 04/04/2025 04/11/2025 Active nitroglycerin 0.4 mg sublingual tablet (11 sources) Nitrate Vasodilator Start: 07-29-20 Start: 07-29-2023 Nitroglycerin 0.4 mg tablet, sublingual Active 0.4 mg BUCCAL Q5M as needed for chest pain July 29, 2023 1:00am Start: 07-29-2023 Nitroglycerin Active 0.4 MG BUCCAL Q5M July 29, 2023 1:00am Start: 07-29-2023 Nutritional Supplements (OPTIMENTAL) liqd (20 sources) Start: 05-30-2024 take 237 mL by mouth once daily Nutritional Supplements (OPTIMENTAL) liqd Indications: Hiatal hernia , Weight loss, non-intentional Take 237 mL by mouth once daily. Okay with what insurance covers 7110 mL 3 05/30/2024 Active omeprazole 40 mg delayed release oral capsule (20 sources) Proton Pump Inhibitor Start: 05-30-2024 End: 03-28-2025 take 1 capsule by mouth once daily omeprazole (PRILOSEC) 40 mg capsule Indications: Epigastric pain Take 1 capsule by mouth once daily. 90 capsule 3 03/28/2025 Active Start: 02-17-2023 take 40 mg by mouth once daily Omeprazole Active 40 MG PO DAILY February 17, 2023 12:00am Start: 12-24-2018 take 40 mg by mouth once daily Omeprazole Active 40 MG PO DAILY December 24, 2018 4:01pm Start: 12-16-2011 End: 01-02-2017 take 1 dose by mouth once daily PriLOSEC (NF) Dose : 4 0 mg =, Oral, qDay, 0 Refill(s) Start Date: 10/22/15 Status: Ordered End: 05-24-2024 take 1 capsule by mouth twice daily omeprazole (PRILOSEC) 40 mg capsule Take 40 mg by mouth two times a day. 05/24/2024 Discontinued ondansetron (ZOFRAN-ODT) disintegrating tablet 4 mg (1 source) Start: 06-14-2021 ondansetron (ZOFRAN-ODT) disintegrating tablet 4 mg oxybutynin chloride 5 mg oral tablet (1 source) Cholinergic Muscarinic Antagonist Start: 04-07-2019 take 1 tablet by mouth twice daily oxybutynin 5 mg oral tablet take 1 tablet by mouth twice a day Start Date: 04/07/19 Status: Ordered oxyCODONE 18 mg 12 hr extended release oral capsule, abuse-deterrent (20 sources) Opioid Agonist Start: 04-14-2025 End: 04-14-2026 take 1 capsule by mouth twice daily oxyCODONE myristate 18 mg CSpT Take 1 capsule by mouth two times a day. (Dr. Forrest) 0 04/14/2025 04/14/2026 Active Start: 09-28-2024 Start: 12-07-2023 End: 12-10-2023 take 1 tablet by mouth every eight hours as needed oxyCODONE IR (ROXICODONE) 10 mg tab Indications: Chronic back pain, unspecified back location, unspecified back pain laterality Take 1 tablet by mouth every 8 hours as needed for up to 3 days. 9 tablet 0 12/07/2023 12/10/2023 Active Start: 07-29-2023 End: 09-28-2024 Start: 07-29-2023 Start: 08-16-2022 End: 08-19-2022 Start: 04-07-2019 take 1 tablet by [facility] three times daily for pain oxyCODONE 5 mg oral tablet ( IMMEDIATE release ) take 1 tablet by mouth three times a day if needed for Breakthrough pain Start Date: 04/07/19 Status: Ordered End: 04-14-2025 take 1 capsule by mouth twice daily oxyCODONE myristate (XTAMPZA ER) 27 mg CSpT Take 1 capsule by mouth two times a day. 04/14/2025 Discontinued Comment on above: Take 1 tablet by [facility] every 8 hours as needed for up to 3 days. perflutren lipid microspheres (DEFINITY) injection 1.65 mg (1 source) Start: 06-16-2021 End: 06-19-2021 1.65 mg (1.5 mL), IntraVENous, IMG ONCE PRN, Other, Suboptimal Echo Image, Starting on 06/16/21 at 0303, For 72 hours Administer up to 1.65 mg via slow IVP for suboptimal echocardiogram enhancement. May administer as concentrated dose or diluted in 8.5 mL of 0.9% sodium chloride for a total volume of 10 mL. May administer as divided doses to reach optimal image enhancement. polyethylene glycol 3350 62379 mg powder for oral solution (20 sources) Osmotic Laxative Start: 09-28-2024 Start: 09-14-2024 End: 03-28-2025 polyethylene glycol 3350 (TX RALAX) 17 gram/dose powder Take 17 g by mouth once daily. Dissolve dose in 4 - 8 ounces of liquid and take as directed. 510 g 5 09/14/2024 03/28/2025 Discontinued Start: 06-16-2021 17 g, Oral, DA GINA PRN, Constipation, Starting on 06/16/21 at 0302 First line therapy for constipation Start: 06-14-2021 17 g, Oral, DA GINA PRN, Constipation, Starting on Thu06/14/21 at 1552 First line therapy for constipation Start: 03-24-2016 polyethylene g lycol 3350 (MIRALAX, GLYCOLAX) 17 gram/dose powder Take 17 g by mouth once daily. This is one (1) capful. Put in 8oz of liquid each day. 527 g 11 03/24/2016 Active Comment on above: Take 17 g by mouth o nce daily. This is one (1) capful. Put in 8oz of liquid each day. potassium chloride 1.33 meq/ml oral solution (20 sources) Start: 04-17-2025 take 15 mL by mouth once daily potassium chloride 20 mEq/15 mL solution Take 15 mL by mouth once daily. Take this while taking furosemide. 450 mL 04/17/2025 Active Start: 01-13-2025 Start: 09-28-2024 End: 10-04-2024 take 1 tablet by mouth once daily potassium chloride ER (KLOR-CON) 20 mEq tablet Take 20 mEq by mouth once daily. 09/28/2024 Active Start: 09-14-2024 End: 09-14-2024 take 1 tablet by mouth twice daily potassium chloride ER (KLOR-CON M10) 10 mEq tablet Take 1 tablet by mouth two times a day. 60 tablet 11 09/14/2024 09/14/2024 Discontinued (Clinical Decision) Start: 05-24-2024 End: 09-14-2024 take 1 tablet by mouth once daily potassium chloride ER (KLOR-CON) 20 mEq tablet Take 1 tablet by mouth once daily. 30 tablet 5 05/24/2024 09/14/2024 Discontinued predniSONE 20 mg oral tablet (20 sources) Start: 05-22-2025 take 2 tablets by mouth once daily predniSONE (DELTASONE) 20 mg tablet Take 2 tablets by mouth once daily. 8 tablet 05/22/2025 Active Start: 09-30-2024 End: 12-30-2024 Start: 09-30-2024 End: 12-30-2024 take 1 tablet by mouth twice daily Prednisone 20 mg tablet Discontinued 20 mg PO TWICE A DAY September 30, 2024 1:00am December 30, 2024 7:40pm Start: 08-21-2024 End: 09-28-2024 Start: 01-04-2023 take 40 mg by mouth once daily Prednisone Active 40 MG PO DAILY 8 January 04, 2023 12:00am Start: 01-14-2022 predniSONE (DE LTASONE) 10 mg tablet Take 4 tabs daily for 3 days, then 2 tabs daily for 3 days, then 1 tab daily for 3 days with food. 21 tablet 0 01/14/2022 Active Start: 11-17-2021 take 40 mg by mouth once daily Prednisone Active 40 MG PO DAILY November 17, 2021 4:10pm Start: 04-07-2019 take 1 tablet by [facility] twice daily at mealtime Deltasone 20mg tab (TAPER) take 1 tablet by mouth twice a day with food Start Date: 04/07/19 Status: Ordered Comment on above: Take 4 tabs daily fo r 3 days, then 2 tabs daily for 3 days, then 1 tab daily for 3 days with food. promethazine hydrochloride 25 mg oral tablet (20 sources) Phenothiazine Start: 025 End: 025 take 1 tablet by mouth every six hours as needed for nausea promethazine (PHENERGAN) 25 mg tablet Indications: Gastroesophageal reflux disease with esophagitis without hemorrhage , Nausea Take 1 tablet by mouth every 6 hours as needed for nausea/vomiting. 90 tablet 2 03/28/2025 Active Start: 06-04-2022 End: 08-05-2022 take 1 tablet by mouth three times daily as needed for nausea and vomiting Promethazine 25 mg tablet Discontinued 25 mg PO THREE TIMES A DAY as needed for nausea and vomiting June 09, 2022 12:00am August 05, 2022 4:31pm Start: 04-07-2019 End: 08-05-2022 Start: 12-19-2011 End: 04-20-2013 take 1 tablet by mouth three times daily as needed for nausea PROMETHAZINE HCL 25 MG TABS One tablet by mouth three times daily as needed nausea PROMETHAZINE HCL [id number] Danny Best MD sertraline 50 mg oral tablet (1 source) Serotonin Reuptake Inhibitor Start: 01-13-2025 3 ml sodium chloride 9 mg/ml injection (9 sources) Start: 06-16-2021 take 1 dose intravenously twice daily 5-40 mL, IntraVENous, EVERY 12 HOURS SCHEDULED (2 times per day), First dose on 06/16/21 at 0900 For Line Patency: Peripheral IV = 5 mL; Midline or Central Line = 10 mL/lumen. & nbsp;If following IV push medication, administer flush at same rate as the IV push. Flush volume is determined by type of infusion therapy being given. &nbs p;For non-viscous solutions use: Periph eral IV = 5 mL Midline or Central Line = 10 mL/lumen &n bsp;For viscous solutions (i.e. blood components, parenteral nutrition, contrast media, or after obtaining blood sample) use: Periph eral IV = 10 mL Midline or Central Line = 20 mL/lumen Start: 06-16-2021 take 25 mL intraveno usly every hour as needed 25 mL, IntraVENous, at 100 mL/hr, PRN, If patient receiving piggyback infusions without ordered maintenance IV fluids or with frequent/long duration piggyback infusions, Starting on 06/16/21 at 0302 Administer at the same rate as the piggyback being infused. Start: 06-16-2021 End: 06-19-2021 5-40 mL, IntraVENous, PRN, L ine Care, Per [employer] Intern Request, Starting on 06/16/21 at 0303, For 72 hours May use order for Line Care after every IV line use and Agitated Saline Bubble Study. Administration for Bubble Study per thread winder automatic request for only. Remove 1 mL 0.9% [...] Midline or Central Line = 20 mL/lumen Start: 06-15-2021 End: 06-15-2021 0.9 % sodium chloride bolus Start: 06-14-2021 take 1 dose intraven ously twice daily 5-40 mL, IntraVENous, EVERY 12 HOURS SCHEDULED (2 times per day), First dose on Thu06/14/21 at 2100 For Line Patency: Peripheral IV = 5 [...] Midline or Central Line = 20 mL/lumen Start: 06-14-2021 take 5-40 mL intrave nously once as needed 5-40 mL, IntraVENous, PRN, Line Care, After every IV line use, Starting on Thu06/14/21 at 1552 For Line Patency: Peripheral IV = 5 [...] Midline or Central Line = 20 mL/lumen Start: 06-14-2021 take 25 mL intraveno usly every hour as needed 25 mL, IntraVENous, at 100 mL/hr, PRN, If patient receiving piggyback infusions without ordered maintenance IV fluids or with frequent/long duration piggyback infusions, Starting on Thu06/14/21 at 1552 Administer at the same rate as the piggyback being infused. Start: 06-14-2021 End: 06-14-2021 0.9 % sodium chloride bolus spironolactone 25 mg oral tablet (20 sources) Aldosterone Antagonist Start: 09-14-2024 End: 03-28-2025 take 1 tablet by mouth once daily spironolactone (ALDACTONE) 25 mg tablet Indications: Hypokalemia Take 1 tablet by mouth once daily. 90 tablet 3 03/28/2025 Active sucralfate 100 mg/ml oral suspension (20 sources) Aluminum Complex Start: 09-14-2024 End: 03-28-2025 take 10 mL by mouth four times daily at bedtime sucralfate (CARAFATE) 100 mg/mL suspension Indications: Epigastric pain Take 10 mL by mouth four times daily. (take prior to meals and at bedtime) 1200 mL 11 03/28/2025 Active Start: 07-28-2023 End: 07-29-2023 take 8 tablets by mouth once Sucralfate 1 gram tablet Discontinued 1 g PO .q8 90 July 28, 2023 1:00am July 29, 2023 9:12pm Start: 01-13-2023 take 1 mL by mouth twice daily Sucralfate (Carafate) 100 mg/mL suspension Active 10 ML PO TWICE A DAY 400 January 13, 2023 12:00am Start: 08-30-2022 End: 03-04-2023 Start: 08-30-2022 End: 03-04-2023 take 1 mL by mouth every six hours Sucralfate (Carafate) 100 mg/mL suspension Discontinued 10 mL PO EVERY 6 HOURS 1000 30 January 04, 2023 1:38pm March 04, 2023 11:07am x 2 weeks Start: 08-28-2022 End: 09-14-2024 Start: 01-02-2017 take 1 tablet by rowena th twice daily SUCRALFATE 1 GM TABS One tablet by mouth twice daily SUCRALFATE [id number] Danny Best MD Start: 11-23-2015 End: 12-20-2015 Start: 11-23-2015 End: 12-20-2015 take 1 tablet by mouth four times daily Sucralfate 1 GM tablet Discontinued 1 g PO 4 TIMES DAILY November 23, 2015 12:00am December 20, 2015 6:27pm Comment on above: Take 1 tablet by rowena th before meals and at bedtime. 10 actuat tiotropium 0.0025 mg/actuat inhalation spray (20 sources) Anticholinergic Start: 01-14-20 End: 06-26-20 take 2 puff(s) by inhalation once daily, then take 2 puff(s) by inhalation once daily tiotropium bromide (SPIRIVA RESPIMAT) 2.5 mcg/actuation inhaler Inhale 2 puffs as instructed once daily. Inhale two puffs once daily. 3 each 3 03/28/2025 06/26/2025 Active Start: 01-04-2023 End: 02-17-2023 Start: 01-04-2023 End: 02-17-2023 take 2.5 ug by inhalation once daily Tiotropium Calimesa (Spiriva Respimat) 2.5 mcg/actuation mist Discontinued 2 NMA INHALATION DAILY 4 February 17, 2023 11:56am February 17, 2023 12:07pm Start: 01-04-2023 End: 02-17-2023 take 1 puff(s) by inhalation once daily Tiotropium Calimesa (Spiriva Respimat) 2.5 mcg/actuation mist Discontinued 2 PUFF INHALATION DAILY February 17, 2023 11:56am February 17, 2023 12:07pm Comment on above: Inhale 2 Puffs as in structed once daily. Inhale two puffs once daily. 24 hr venlafaxine 150 mg extended release oral capsule (20 sources) Serotonin and Norepinephrine Reuptake Inhibitor Start: take 150 mg by mouth once daily Venlafaxine Active 150 MG PO DAILY January 17, 2022 12:45am Start: 06-05-2020 take 150 mg by mouth once hilario y Venlafaxine Active 150 MG PO DAILY June 05, 2020 4:18pm Start: 06-17-2017 End: 11-16-2017 Start: 06-17-2017 End: 11-16-2017 take 150 mg by mouth once daily Venlafaxine Discontinu ed 150 MG PO DAILY June 17, 2017 12:00am November 16, 2017 10:59am Start: 08-21-2016 take 1 tablet by mouth once ve nlafaxine (EFFEXOR) 37.5 mg tablet Indications: Anxiety Take 1 tablet by mouth once daily. Per counseling center 0 08/21/2016 Active Comment on above: Take 1 tablet by rowena th once daily. Per counseling center Completed/Discontinued Medications Medication Drug Class(es) Dates Sig (Normalized) Sig (Original) 4 ml adenosine 3 mg/ml injection (2 sources) Adenosine Receptor Agonist Start: 06-15-2021 End: 06-15-2021 adenosine (ADENOCARD) 12 MG/4ML injection Start: 06-15-2021 End: 06-15-2021 adenosine (ADENOCARD) inject ion 6 mg [id number] actuat albuter ol 0.09 mg/actuat metered dose inhaler (20 sources) beta2-Adrenergic Agonist Start: 09-05-2023 End: 12-30-2024 Start: 09-05-2023 End: 12-30-2024 Albuterol Sulfate 2.5 mg /3 mL (0.083 %) solution for nebulization Discontinued 2.5 mg continuous nebulization EVERY 6 HOURS as needed for shortness of breath or wheezing September 05, 2023 1:00am December 30, 2024 7:37pm Start: 02-17-2023 End: 12-30-2024 Start: 02-17-2023 End: 12-30-2024 Albuterol Sulfate 90 mcg/act uation HFA aerosol inhaler Discontinued 2 NMA INHALATION EVERY 6 HOURS as needed for shortness of breath or wheezing 8.September 30, 2024 9:31am December 30, 2024 7:38pm This inhaler must be used with a spacer device. Start: 02-17-2023 take 1 puff(s) by in halation every six hours Albuterol Sulfate Active 2 PUFF INHALATION EVERY 6 HOURS 8.February 17, 2023 12:00am This inhaler must be used with a spacer device. Start: 02-17-2023 Start: 01-14-2022 End: 12-20-2023 take 2-4 puff(s) by inhalation every two hours as needed for wheezing albuterol HFA (PROVENTIL HFA, VENTOLIN HFA) 90 mcg/actuation inhaler Inhale 2-4 Puffs as instructed every 2 hours as needed for wheezing/shortness of breath. 1 Each 1 09/10/2022 12/20/2023 Discontinued Start: 06-15-2021 take 1 puff(s) by in halation every four hours as needed Albuterol Sulfate (Ventolin Hfa) 1 INHALER inhaler Active 1 - 2 PUFF INHALATION EVERY 4 HOURS NEEDED 1 June 15, 2021 6:27am Start: 06-24-2017 End: 09-23-2022 take 2.5 mg by inhalation every four hours as needed albuterol (PROVENTIL) 2.5 mg /3 mL (0.083 %) nebulizer solution Use 3 mL via nebulizer every 4 hours as needed for Wheezing/Shortness of Breath. Use over 5-15minutes. 120 Vial 11 06/24/2017 09/23/2022 Discontinued Comment on above: Use 3 mL via nebuliz er every 4 hours as needed for Wheezing/Shortness of Breath. Use over 5-15minutes. Inhale 2-4 Puffs as instructed every 2 hours as needed for wheezing/shortness of breath. aluminum hydroxide 40 mg/ml / magnesium hydroxide 40 mg/ml / simethicone 4 mg/ml oral suspension (20 sources) End: 03-28-2025 aluminum-magnesium hydroxide-simethicone (MAALOX,MYLANTA,MAG-AL PLUS) 200-200-20 mg/5 mL suspension Take 30 mL by mouth as needed. 03/28/2025 Discontinued amiodarone hydrochloride 200 mg oral tablet (20 sources) Antiarrhythmic Start: 07-22-2023 End: 10-04-2024 Start: 01-20-2022 End: 07-16-2023 Start: 01-20-2022 End: 12-07-2023 take 1 tablet by mouth twice daily amiodarone (PACERONE) 200 mg tablet Take 200 mg by mouth twice daily. 06/04/2022 12/07/2023 Discontinued Comment on above: Take 200 mg by mouth twice daily. amLODIPine 10 mg oral tablet (6 sources) Dihydropyridine Calcium Channel Cora Start: 012 End: 013 take 1 tablet by mouth once daily AMLODIPINE BESYLATE 10 MG TABS One tablet by mouth daily AMLODIPINE BESYLATE [id number] Danny Best MD benzonatate 100 mg oral capsule (20 sources) Non-narcotic Antitussive Start: 023 End: take 1 capsule by mouth every eight hours as needed benzonatate (TESSALON PERLES) 100 mg capsule Take 1 capsule by mouth three times a day as needed for cough. 30 capsule 5 05/24/2024 01/03/2025 Discontinued Comment on above: Take 1 capsule by [facility] three times daily as needed for cough. bisacodyl 5 mg delayed release oral tablet (20 sources) Stimulant Laxative Start: 025 End: take 1 tablet by mouth once daily as needed for constipation Bisacodyl (DULCOLAX) 5 mg tab Take 1 tablet by mouth once daily as needed for constipation. 20 tablet 09/14/2024 03/28/2025 Discontinued End: 09-14-2024 take 10 mg rectal route once daily as needed for constipation bisacodyl (DULCOLAX) 10 mg supp 10 mg by RECTAL route once daily as needed for constipation. 09/14/2024 Discontinued Comment on above: 10 mg by RECTAL rout e once daily as needed for constipation. 168 hr buprenorphine 0.005 mg/hr transdermal system (19 sources) Partial Opioid Agonist Start: 02-18-20 End: 07-16-20 carbamide peroxide 65 mg/ml otic solution (20 sources) Start: 04-15-20 End: 05-30-20 carbamide peroxide (DEBROX) 6.5 % otic solution Use 5 Drops in both ears twice daily. 15 mL 04/17/2023 05/30/2024 Discontinued Comment on above: Use 5 Drops in both ears twice daily. cefdinir 300 mg oral capsule (7 sources) Cephalosporin Antibacterial End: 04-11-20 take 1 capsule by mouth twice daily cefdinir (OMNICEF) 300 mg capsule Take 300 mg by mouth two times a day. 0 04/11/2024 Discontinued cephalexin 50 mg/ml oral suspension (20 sources) Cephalosporin Antibacterial Start: 06-13-20 End: 06-20-20 19 citalopram 10 mg oral tablet (20 sources) Serotonin Reuptake Inhibitor Start: 11-19-19 16 End: 01-03-20 17 Start: 2011 End: 12-16-2011 take 1 tablet by mouth once daily CELEXA 20 MG TABS One tablet by mouth daily CITALOPRAM HYDROBROMIDE [id number] Libby Dye MD clonazePAM 0.5 mg oral tablet (20 sources) Benzodiazepine Start: 06-05-2020 End: 06-06-2020 cyclobenzaprine hydrochloride 5 mg oral tablet (7 sources) Muscle Relaxant Start: 11-30-2023 End: 09-28-2024 Diaper,Brief, Adult,Disposable (DEPEND EASY FIT UNDERGARMENTS) misc (20 sources) Start: 09-13-2018 End: 05-30-2024 Diaper,Brief, Adult,Disposable (DEPEND EASY FIT UNDERGARMENTS) misc Indications: Urinary incontinence, unspecified type , Stress incontinence, female Size Medium pull up. Change depends once every 1-2 hrs. Dx incontinence (788.30) Prolapsed bladder (618.01) 120 Each 5 09/13/2018 05/30/2024 Discontinued Start: 09-13-2018 Diaper,Brief, Adult,Disposable (DEPEND EASY FIT UNDERGARMENTS) misc Indications: Urinary incontinence, unspecified type , Stress incontinence, female Size Medium pull up. Change depends once every 1-2 hrs. Dx incontinence (788.30) Prolapsed bladder (618.01) 120 Each 09/13/2018 Suspended Start: 09-13-2018 Diaper,Brief, Adult,Disposable (DEPEND EASY FIT UNDERGARMENTS) misc Indications: Urinary incontinence, unspecified type , Stress incontinence, female Size Medium pull up. Change depends once every 1-2 hrs. Dx incontinence (788.30) Prolapsed bladder (618.01) 120 Each 09/13/2018 Active Comment on above: Size Medium pull up. Change depends once every 1-2 hrs. Dx incontinence (788.30) Prolapsed bladder (618.01) dicyclomine hydrochloride 10 mg oral capsule (20 sources) Anticholinergic Start: End: take 2 capsules by mouth twice daily dicyclomine (BENTYL) 10 mg capsule Take 2 capsules by mouth two times a day. 60 capsule 05/24/2024 09/14/2024 Discontinued dilTIAZem hydrochloride 30 mg oral tablet (1 source) Calcium Channel Cora Start: End: take 1 dose by mouth three times daily 30 mg, Oral, EVERY 8 HOURS SCHEDULED (3 times per day), First dose on 06/16/21 at 0330 docusate sodium 100 mg oral capsule (20 sources) Start: End: take 1 capsule by mouth twice daily as needed for constipation docusate sodium (COLACE) 100 mg capsule Indications: Lower abdominal pain Take 1 capsule by mouth two times a day as needed for constipation. 60 capsule 05/24/2024 09/14/2024 Discontinued Comment on above: Take 1 capsule by mo uth twice daily as needed for constipation. Take 1 capsule by mo uth two times a day as needed for constipation. doxycycline hyclate 100 mg oral capsule (20 sources) Tetracycline-class Drug Start: End: Start: 08-26-2024 End: 09-02-2024 take 1 tablet by mouth twice daily doxycycline (VIBRA-TABS) 100 mg tablet Indications: Respiratory infection Take 1 tablet by mouth two times a day for 7 days. 14 tablet 08/26/2024 09/02/2024 Active Start: 01-04-2023 End: 01-16-2023 Start: 01-14-2022 End: 01-21-2022 Comment on above: Take 1 capsule by mo [facility] twice daily for 7 days. enteric contrast (will be provided with radiology test) (2 sources) Start: 01-19-2024 End: 01-19-2024 enteric contrast (will be provided with radiology test) For CT ABD WO IVCON order Administer, As Directed One Time Only, via Oral, Rectal, both Oral and Rectal, Enteric Tube, Stoma or Indwelling Catheter, Enteric Contrast as designated per enteric contrast guidelines 1 Each 0 01/19/2024 01/19/2024 Start: 01-05-2024 End: 01-06-2024 enteric contrast (will be pr ovided with radiology test) For CT ABD/PEL W IVCON Routine order Administer, As Directed One Time Only, via Oral, Rectal, both Oral and Rectal, Enteric Tube, Stoma or Indwelling Catheter, Enteric Contrast as designated per enteric contrast guidelines 1 Each 0 01/05/2024 01/06/2024 Active esomeprazole 40 mg delayed release oral capsule (20 sources) Proton Pump Inhibitor Start: 09-03-2020 End: 09-23-2022 take 1 capsule by mouth twice daily esomeprazole (NEXIUM) 40 mg capsule Indications: Gastro-esophageal reflux disease with esophagitis Take 1 capsule by mouth twice a day. 60 capsule 5 09/03/2020 09/23/2022 Discontinued Start: 04-07-2019 take 1 capsule by mo [facility] once daily in the morning esomeprazole 40 mg oral delayed release capsule take 1 capsule by mouth once daily AT 6 AM Start Date: 04/07/19 Status: Ordered Start: 01-02-2017 take 1 tablet by [facility] once daily NEXIUM 40 MG CPDR One tablet by mouth daily ESOMEPRAZOLE MAGNESIUM [id number] Danny Best MD Start: 10-03-2016 End: 07-23-2018 Start: 10-03-2016 End: 07-23-2018 take 1 capsule by mouth once daily Esomeprazole Magnesium 40 MG capsule Discontinued 40 mg PO DAILY October 03, 2016 1:00am July 23, 2018 8:59am Start: 2011 End: 12-16-2011 take 1 tablet by mouth once daily NEXIUM 40 MG CPDR One tablet by mouth daily ESOMEPRAZOLE MAGNESIUM [id number] Danny Best MD Comment on above: Take 1 capsule by mo [facility] twice a day. famotidine 40 mg oral tablet (20 sources) Histamine-2 Receptor Antagonist Start: End: take 1 tablet by mouth once daily famotidine (PEPCID) 40 mg tablet Indications: Generalized abdominal pain Take 1 tablet by mouth once daily. 30 tablet 5 05/24/2024 05/30/2024 Discontinued Start: 09-23-2022 End: 12-20-2023 take 1 tablet by mouth once daily famotidine (PEPCID) 40 mg tablet Indications: Epigastric pain , Lower abdominal pain Take 1 tablet by mouth once daily. 30 tablet 2 11/07/2022 12/20/2023 Discontinued Comment on above: Take 1 tablet by [facility] once daily. 12 hr guaiFENesin 1200 mg extended release oral tablet (7 sources) Start: 09-30-2024 End: 12-30-2024 take 1 tablet by mouth twice daily, then take 1 tablet by mouth every twelve hours Guaifenesin (Mucus Relief Er) 1,200 mg Tablet Extended Release 12hr Discontinued 1200 mg PO TWICE A DAY September 30, 2024 1:00am December 30, 2024 7:38pm Start: 06-17-2024 End: 06-24-2024 take 1 tablet by mouth twice daily as needed guaiFENesin (MUCINEX) 600 mg 12 hr tablet Take 1 tablet by mouth two times a day as needed for cold/allergy symptoms (cough) for up to 7 days. 14 tablet 06/17/2024 06/24/2024 Active hydroCHLOROthiazide 12.5 mg / lisinopril 20 mg oral tablet (6 sources) Thiazide Diuretic, Angiotensin Converting Enzyme Inhibitor Start: 12-16-2011 End: 06-21-2012 take 1 tablet by mouth once daily LISINOPRIL-HYDROCHLOROTHIAZIDE 20-12.5 MG TABS One tablet by mouth daily LISINOPRIL-HYDROCHLOROTHIAZIDE [id number] Dnany Best MD Ibuprofen (5 sources) Nonsteroidal Anti-inflammat ory Drug End: 09-23-2022 IBUPROFEN ORAL Take by mouth . 0 09/23/2022 Discontinued IBUPROFEN ORAL T yoana by mouth. 0 Active Comment on above: Take by mouth. iopamidol (ISOVUE-370) 76 % injection 75 mL (1 source) Start: 06-15-2021 End: 06-15-2021 iopamidol (ISOVUE-370) 76 % injection 75 mL isosorbide (9 sources) Start: 04-20-2013 take 1 tablet by mouth once daily IMDUR 30 MG [id number] One tablet by mouth daily (pateint takes intermittently) ISOSORBIDE MONONITRATE [id number] Danny Bset MD Start: 04-20-2013 End: 01-02-2017 take 1 tablet by mouth once daily IMDUR 30 MG [id number] One tablet by mouth daily (pateint takes intermittently) ISOSORBIDE MONONITRATE [id number] Danny Best MD Start: 06-21-2012 take 1 tablet by rowena th once daily IMDUR 30 MG [id number] One tablet by mouth daily ISOSORBIDE MONONITRATE [id number] Danny Best MD lansoprazole 30 mg delayed r elease oral capsule (15 sources) Proton Pump Inhibitor Start: 07-29-2023 End: 09-05-2023 Start: 06-17-2023 take 30 mg by mouth once daily Lansoprazole Active 30 MG PO DAILY June 16, 2023 11:00pm Lidocaine (16 sources) Antiarrhythmic, Amide Local Anesthetic Start: 05-28-2023 End: 07-16-2023 Lidocaine Hcl (Lidocaine Viscous) 2 % solution Discontinued 10 mL MUCOUS MEM TWICE A DAY as needed for pain 100 May 28, 2023 12:00am July 16, 2023 2:28pm Start: 05-28-2023 End: 07-16-2023 Lidocaine Hcl (Lidocaine Vis cous) 2 % solution Discontinued 10 ML MUCOUS MEM TWICE A DAY May 28, 2023 12:00am July 16, 2023 2:28pm Start: 05-28-2023 End: 07-16-2023 Lidocaine Hcl (Lidocaine Vis cous) 2 % solution Discontinued 10 ML MUCOUS MEM TWICE A DAY May 27, 2023 11:00pm July 16, 2023 1:28pm Start: 05-28-2023 Lidocaine Hcl (Lidocaine Viscous) 2 % solution Active 10 ML MUCOUS MEM TWICE A DAY May 28, 2023 12:00am Start: 07-26-2021 End: 08-25-2021 lidocaine 4 % external patch 1 patch MEDICATION, NON-DATABASE (5 sources) Start: 11-07-2019 End: 09-23-2022 MEDICATION, NON-DATABASE Ind ications: Failure to gain weight in adult 1 can Ensure, or like supplement (with 250 calories per can) by mouth, with meals. 90 Each 11/07/2019 09/23/2022 Discontinued Start: 11-07-2019 MEDICATION, NO N-DATABASE Indications: Failure to gain weight in adult 1 can Ensure, or like supplement (with 250 calories per can) by mouth, with meals. 90 Each 11/07/2019 Active Comment on above: 1 can Ensure, or lik e supplement (with 250 calories per can) by mouth, with meals. melatonin 10 mg oral tablet (20 sources) Start: 03-14-2024 End: 03-28-2025 take 1 tablet by mouth every twenty-four hours as needed melatonin 10 mg tab Take 1 tablet by mouth at bedtime as needed for insomnia. 30 tablet 5 05/24/2024 03/28/2025 Discontinued Start: 09-05-2023 Start: 09-05-2023 take 1 capsule by mo [facility] at bedtime Melatonin 3 mg capsule Active 3 mg PO AT BEDTIME September 05, 2023 1:00am Start: 09-05-2023 Start: 06-16-2021 melatonin tabl et 5 mg End: 03-14-2024 take 1 tablet by mouth every twenty-four hours as needed melatonin 3 mg tablet Take 3 mg by mouth at bedtime as needed for insomnia. 0 03/14/2024 Discontinued Comment on above: Take 3 mg by mouth a t bedtime as needed for insomnia. 2 ml naloxone hydrochloride 1 mg/ml prefilled syringe (6 sources) Opioid Antagonist Start: 06-14-2021 End: 06-14-2021 naloxone (NARCAN) 2 MG/2ML injection Start: 08-10-2019 End: 09-23-2022 NARCAN 4 mg/actuation nasal spray nystatin [id number] unt/ml oral suspension (20 sources) Polyene Antifungal Start: 09-23-2022 End: 04-11-2024 nystatin (MYCOSTATIN) 100,000 unit/mL suspension Indications: Oral thrush Take 5 mL by mouth four times daily. 1tsp swish in mouth for several minutes, then swallow (or expectorate) 4 times daily until gone. 200 mL 2 09/23/2022 04/11/2024 Discontinued Comment on above: Take 5 mL by mouth f our times daily. 1tsp swish in mouth for several minutes, then swallow (or expectorate) 4 times daily until gone. ondansetron 4 mg oral tablet (20 sources) Serotonin-3 Receptor Antagonist Start: 05-24-2024 End: 03-28-2025 take 1 tablet by mouth every eight hours as needed for nausea and nausea ondansetron (ZOFRAN) 4 mg tablet Indications: Nausea Take 1 tablet by mouth every 8 hours as needed for nausea/vomiting. 30 tablet 1 05/24/2024 03/28/2025 Discontinued Start: 01-13-2023 End: 09-28-2024 Start: 08-03-2022 End: 09-17-2022 Start: 02-26-2022 take 4 mg by mouth e very eight hours as needed Ondansetron Active 4 MG PO EVERY 8 HOURS NEEDED February 26, 2022 12:00am Start: 11-25-2021 End: 01-01-2022 Start: 11-25-2021 End: 01-01-2022 take 1 tablet by mouth once daily Ondansetron 4 mg tablet,disintegrating Discontinued 4 mg PO DAILY November 25, 2021 12:00am January 01, 2022 4:04am Start: 09-27-2021 End: 05-24-2024 take 1 tablet by mouth every six hours as needed for nausea and nausea ondansetron orally disintegrating (ZOFRAN ODT) 4 mg disintegrating tablet Indications: Nausea Take 1 tablet by mouth every 6 hours as needed for nausea/vomiting. 15 tablet 08/28/2022 05/24/2024 Discontinued Start: 06-16-2021 ondansetron (Z OFRAN) injection 4 mg Start: 06-14-2021 End: 06-14-2021 ondansetron (ZOFRAN) injecti on 4 mg Comment on above: Take 1 tablet by rowena every 6 hours as needed for nausea/vomiting. OXYCODONE HCL/ACETAMINOPHEN (PERCOCET ORAL) (5 sources) End: 09-23-2022 OXYCODONE HCL/ACETAMINOPHEN (PERCOCET ORAL) Take by mouth as needed. 0 09/23/2022 Discontinued OXYCODONE HCL/AC ETAMINOPHEN (PERCOCET ORAL) Take by mouth as needed. 0 Active Comment on above: Take by mouth as nee ded. oxycodone myristate (XTAMPZA ER ORAL) (14 sources) End: 04-11-2024 take 18 mg by mouth twice daily for pain oxycodone myristate (XTAMPZA ER ORAL) Take 18 mg by mouth two times a day. For pain 0 04/11/2024 Discontinued take 18 mg by mouth twice daily for pain oxycodone myristate (XTAMPZA ER ORAL) Take 18 mg by mouth two times a day. For pain 0 Active take 18 mg by mouth twice daily for pain oxycodone myristate (XTAMPZA ER ORAL) Take 18 mg by mouth two times a day. For pain 0 Suspended Comment on above: Take 18 mg by mouth two times a day. For pain pantoprazole 40 mg delayed release oral tablet (20 sources) Proton Pump Inhibitor Start: 06-24-2023 End: 09-28-2024 Start: 08-08-2022 End: 02-17-2023 Start: 08-08-2022 End: 02-05-2023 take 1 tablet by mouth once daily Pantoprazole (Protonix) 40 mg tablet,delayed release (DR/EC) Discontinued 40 mg PO DAILY August 08, 2022 1:00am January 04, 2023 1:39pm Start: 08-08-2022 End: 05-30-2024 take 1 tablet by mouth twice daily Pantoprazole (Protonix) 40 mg tablet,delayed release (DR/EC) Discontinued 40 mg PO TWICE A DAY 60 January 04, 2023 1:38pm February 17, 2023 11:12am Comment on above: Take 1 tablet by rowena th once daily. Take 1 tablet by rowena th twice daily. PARoxetine hydrochloride 40 mg oral tablet (20 sources) Serotonin Reuptake Inhibitor Start: 08-04-2022 End: 12-20-2023 PARoxetine (PAXIL) 40 mg tablet 08/04/2022 12/20/2023 Discontinued Start: 06-09-2022 End: 01-04-2023 Start: 06-21-2012 End: 12-17-2015 take 1 tablet by mouth once daily PAXIL 40 MG TABS One tablet by mouth daily PAROXETINE HCL [id number] Delilah Severino RN take 1 tablet by rowena th once daily PAXIL 20 MG TABS One tablet by mouth daily PAROXETINE HCL [id number] Libby Dye MD remdesivir 200 mg in sodium chloride 0.9 % 250 mL IVPB (1 source) Start: 06-14-2021 End: 06-14-2021 200 mg, IntraVENous, at 500 mL/hr, Administer over 30 Minutes, ONCE, On Thu06/14/21 at 1630, For 1 dose rivaroxaban 20 mg oral tablet (20 sources) Factor Xa Inhibitor Start: 08-05-2022 End: 07-23-2023 Comment on above: Take by mouth. Take 1 tablet by rowena th once daily. sodium phosphate, dibasic 59.3 mg/ml / sodium phosphate, monobasic 161 mg/ml enema (20 sources) Start: 05-24-2024 End: 03-28-2025 sodium phosphate-sodium bisphosphate (FLEET) enema 133 mL by RECTAL route as needed for constipation. 1 Each 2 05/24/2024 03/28/2025 Discontinued tamsulosin hydrochloride 0.4 mg oral capsule (6 sources) alpha-Adrenergic Cora Start: 2011 End: 06-21-2012 take 1 tablet by mouth once daily FLOMAX 0.4 MG CAPS One tablet by mouth daily TAMSULOSIN HCL [id number] Danny Best MD traMADol hydrochloride 50 mg oral tablet (13 sources) Opioid Agonist Start: 07-28-2023 End: 09-05-2023 30 actuat umeclidinium 0.0625 mg/actuat / vilanterol 0.025 mg/actuat dry powder inhaler (20 sources) Anticholinergic, beta2-Adrenergic Agonist Start: 09-23-2022 End: 04-11-2024 take 1 dose by inhalation once daily umeclidinium-vilan terol (ANORO ELLIPTA) 62.5-25 mcg/actuation inhaler Indications: Chronic obstructive pulmonary disease, unspecified COPD type (HCC) Inhale 1 Inhalation as instructed once daily. 1 Each 2 09/23/2022 04/11/2024 Discontinued Comment on above: Inhale 1 Inhalation as instructed once daily. (11 sources) Start: 09-30-2024 End: 12-30-2024 Start: 09-28-2024 Start: 09-05-2023 Start: 05-28-2023 End: 07-16-2023 Start: 02-17-2023 Problems Active Problems Problem Classification Problem Date Documented Da te Episodic/Chronic Acute myocardial infarction (3 sources) Acute non-ST segment elevation myocardial infarction; Translations: [Non-ST elevation (NSTEMI) myocardial infarction] 01-02-2023 Chronic Anxiety disorders (20 sources) Anxiety disorder; Translations: [Anxiety disorder, unspecified] Onset: 4 Chronic Aortic; peripheral; and visceral artery aneurysms (20 sources) Aneurysm; Translations: [Abdominal aneurysm] Onset: 4 Chronic Asthma (17 sources) Asthma-chronic obstructive pulmonary disease overlap syndrome; Translations: [Asthma-chronic obstructive pulmonary disease overlap syndrome] 02-17-2023 Chronic Comment on above: Her PFTs suggest mod erate chronic obstructive asthma, although her FVC was likely decreased due to effort artifact. There is positive airway reactivity. - Add Symbicort 160/4.51 puff twice daily, prescription sent to her pharmacy and can be picked up by her residential personnel, to be used with a spacer. Refilled for 1 year today - Continue Spiriva, refilled for 1 year today - Add albuterol rescue inhaler as needed dyspnea, which she should use with a spacer to minimize cardiac side effects, refilled for a year today - Prescribe a spacer device. - Follow-up in 6 months and as needed - There is no indication for checking for nocturnal hypoxia due to FEV1 76% predicted. Biliary tract disease (20 sources) Obstruction of common bile duct; Translations: [Obstruction of bile duct] 06-30-2023 Chronic Cardiac dysrhythmias (20 sources) Paroxysmal supraventricular tachycardia; Translations: [Supraventricular tachycardia] Onset: 1 Chronic Chronic obstructive pulmonary disease and bronchiectasis (20 sources) Acute exacerbation of chronic obstructive airways disease; Translations: [Chronic obstructive pulmonary disease with (acute) exacerbation] Onset: 4 Resolved: 4 Chronic Comment on above: Chest x-ray is stabl e, this treatment is smoking cessation Chronic obstructive pulmonary disease and bronchiectasis (1 source) Bronchitis, not specified as acute or chronic; Translations: [Sinobronchitis] Onset: 5 Episodic Conditions associated with dizziness or vertigo (20 sources) Lightheadedness; Translations: [Dizziness and giddiness] Episodic Congestive heart failure; nonhypertensive (20 sources) Heart failure with reduced ejection fraction; Translations: [Unspecified systolic (congestive) heart failure] Onset: 4 Chronic Coronary atherosclerosis and other heart disease (20 sources) Coronary arteriosclerosis; Translations: [History of non-ST segment elevation myocardial infarction] Onset: 2 06-21-2012 Chronic Diabetes mellitus with complications (1 source) Type 2 diabetes mellitus with other specified complication; Translations: [Type 2 diabetes mellitus with other specified complication, without long-term current use of insulin (HCC)] Onset: 3 Chronic Diabetes mellitus without complication (20 sources) Type 2 diabetes mellitus; Translations: [Type 2 diabetes mellitus without complications] Onset: 3 Chronic Diabetes mellitus without complication (2 sources) Impaired fasting glycemia; Translations: [Impaired fasting glucose] Onset: 5 03-28-2025 Episodic Disorders of lipid metabolism (20 sources) Hyperlipidemia; Translations: [Hyperlipidemia, unspecified] Onset: 2 06-21-2012 Chronic Diverticulosis and diverticulitis (20 sources) Diverticular disease; Translations: [Diverticulosis of intestine, part unspecified, without perforation or abscess without bleeding] Onset: 5 03-20-2015 Chronic E Codes: Adverse effects of medical care (4 sources) Equipment finding; Translations: [Unspecified medical devices associated with adverse incidents] 11-13-2024 Episodic E Codes: Fall (8 sources) Fall; Translations: [Unspecified fall, initial encounter] Episodic Esophageal disorders (20 sources) Gastroesophageal reflux disease; Translations: [Gastro-esophageal reflux disease without esophagitis] Onset: 6 06-05-2014 Chronic Essential hypertension (20 sources) Essential hypertension; Translations: [Hypertensive disorder] Onset: 2 12-16-2011 Chronic Comment on above: CONTROLLED ON MED Fluid and electrolyte disorders (20 sources) Dehydration; Translations: [Dehydration] Onset: 5 02-08-2019 Episodic Genitourinary symptoms and ill-defined conditions (20 sources) Female stress incontinence; Translations: [Stress incontinence (female) (male)] Onset: 4 11-21-2015 Chronic Malaise and fatigue (20 sources) Asthenia; Translations: [Weakness] Onset: 4 09-10-2022 Episodic Menopausal disorders (20 sources) Menopausal symptom; Translations: [Menopausal and female climacteric states] Onset: 6 06-05-2014 Chronic Miscellaneous mental health disorders (1 source) Confusional state 03-28-2025 Chronic Mood disorders (20 sources) Depressive disorder; Translations: [Depression] Chronic Mycoses (1 source) Candidiasis of mouth; Translations: [Candidal stomatitis] Episodic Nausea and vomiting (20 sources) Nausea; Translations: [Nausea] Onset: 4 02-03-2022 Episodic Nutritional deficiencies (4 sources) Vitamin D deficiency; Translations: [Vitamin D deficiency, unspecified] Onset: 5 05-30-2024 Chronic Open wounds of extremities (20 sources) Laceration of forearm; Translations: [Laceration without foreign body of unspecified forearm, initial encounter] 02-08-2019 Episodic Other aftercare (1 source) Long-term current use of drug therapy; Translations: [Other termite renewal inspector (current) drug therapy] 09-14-2024 Episodic Other aftercare (1 source) Encounter for therapeutic drug level monitoring; Translations: [Encounter for therapeutic drug monitoring] Onset: 5 Episodic Other and ill-defined heart disease (14 sources) Intracardiac thrombosis, not elsewhere classified; Translations: [Acute myocardial infarction of unspecified site, episode of care unspecified] Onset: 5 01-04-2023 Chronic Other circulatory disease (20 sources) H/O: hypertension; Translations: [Personal history of other diseases of the circulatory system] 07-07-2022 Episodic Other circulatory disease (1 source) Carotid bruit; Translations: [Other specified symptoms and signs involving the circulatory and respiratory systems] Episodic Other connective tissue disease (1 source) Pain in right lower limb; Translations: [Pain in right leg] 05-01-2023 Episodic Other connective tissue disease (1 source) Disorder of ankle; Translations: [Other symptoms and signs involving the musculoskeletal system] 11-25-2023 Episodic Other connective tissue disease (1 source) Peripheral neuropathic pain; Translations: [Neuralgia and neuritis, unspecified] 11-25-2023 Episodic Other connective tissue disease (1 source) Bilateral chronic pain of feet; Translations: [Pain in right foot] 09-14-2024 Episodic Other connective tissue disease (2 sources) H/O: back problem; Translations: [Personal history of other diseases of the musculoskeletal system and connective tissue] 01-10-2025 Episodic Other diseases of bladder and urethra (20 sources) Overactive bladder; Translations: [Overactive bladder] Onset: 9 02-18-2019 Chronic Other ear and sense organ disorders (20 sources) Otitis externa; Translations: [Unspecified otitis externa, right ear] 09-16-2021 Chronic Other eye disorders (20 sources) Vitreous floaters; Translations: [Other vitreous opacities, right eye] 01-09-2022 Chronic Other fractures (7 sources) Compression fracture of thoracic spine; Translations: [Wedge compression fracture of T5-T6 vertebra, initial encounter for closed fracture] 11-30-2023 Episodic Other fractures (1 source) Wedge compression fracture of T7-T8 vertebra, initial encounter for closed fracture; Translations: [Closed wedge compression fracture of T7 vertebra, initial encounter ([facility])] Onset: Episodic Other fractures (1 source) Wedge compression fracture of unspecified thoracic vertebra, initial encounter for closed fracture; Translations: [Compression fracture of thoracic vertebra, unspecified thoracic vertebral level, initial encounter ([facility])] Onset: 4 Episodic Other gastrointestinal disorders (19 sources) Dysphagia; Translations: [Dysphagia, unspecified] 05-22-2023 Episodic Other gastrointestinal disorders (14 sources) Dysphagia, unspecified; Translations: [Dysphagia, unspecified] 05-22-2023 Episodic Other gastrointestinal disorders (1 source) Disease of intestine, unspecified; Translations: [Sigmoid thickening] Onset: 4 Episodic Other gastrointestinal disorders (2 sources) Esophageal dysphagia; Translations: [Other dysphagia] 02-09-2025 Episodic Other hematologic conditions (6 sources) Raised cardiac enzyme or marker; Translations: [Other specified abnormalities of plasma proteins] 01-03-2023 Episodic Other hematologic conditions (1 source) Other specified abnormalities of plasma proteins; Translations: [Other abnormal blood chemistry] 01-04-2023 Episodic Other inflammatory condition of skin (1 source) Seborrheic dermatitis of scalp; Translations: [Seborrheic dermatitis, unspecified] 03-28-2025 Episodic Other liver diseases (2 sources) Abscess of liver; Translations: [Abscess of liver] 01-05-2024 Episodic Other lower respiratory disease (3 sources) Hypoxia; Translations: [Hypoxemia] Episodic Other lower respiratory disease (20 sources) Hypoxemia; Translations: [Hypoxemia] 06-23-2021 Episodic Other lower respiratory disease (1 source) Cough; Translations: [Cough] Episodic Other lower respiratory disease (7 sources) Shortness of breath; Translations: [Shortness of breath] Onset: 5 09-17-2022 Episodic Other lower respiratory disease (5 sources) Dyspnea; Translations: [Shortness of breath] Episodic Other lower respiratory disease (1 source) Chronic cough; Translations: [Chronic cough] 04-28-2023 Episodic Other lower respiratory disease (15 sources) Dyspnea on exertion; Translations: [Other forms of dyspnea] 07-16-2023 Episodic Other lower respiratory disease (12 sources) Other forms of dyspnea; Translations: [Other respiratory abnormalities] 07-16-2023 Episodic Other lower respiratory disease (4 sources) Cough; Translations: [Acute cough] 06-17-2024 Episodic Other lower respiratory disease (1 source) Respiratory tract infection; Translations: [Other specified respiratory disorders] 08-26-2024 Episodic Other lower respiratory disease (2 sources) History of chronic obstructive airway disease; Translations: [Personal history of other diseases of the respiratory system] 01-10-2025 Episodic Other nervous system disorders (20 sources) Peripheral nerve disease ; Translations: [Polyneuropathy, unspecified] 11-25-2021 Chronic Other nervous system disorders (20 sources) Chronic pain; Translations: [Other chronic pain] 09-02-2021 Chronic Other nervous system disorders (20 sources) Neuropathy; Translations: [Polyneuropathy, unspecified] Chronic Other nervous system disorders (2 sources) Other chronic pain; Translations: [Chronic back pain, unspecified back location, unspecified back pain laterality] Onset: Chronic Other nervous system disorders (1 source) Chronic pain syndrome; Translations: [Chronic pain syndrome] 03-28-2025 Chronic Other nervous system disorders (1 source) Polyneuropathy, unspecified; Translations: [Neuropathy] Onset: Chronic Other nervous system disorders (20 sources) Paresthesia; Translations: [Paresthesia of skin] 09-30-2022 Episodic Other nervous system disorders (1 source) Abnormal gait; Translations: [Unsteadiness on feet] 11-25-2023 Episodic Other non-traumatic joint disorders (1 source) Ankle pain; Translations: [Pain in right ankle and joints of right foot] 09-14-2024 Episodic Other nutritional; endocrine; and metabolic disorders (3 sources) Body mass index (BMI) 30.0-30.9, adult; Translations: [Body mass index (BMI) 30.0-30.9, adult] Onset: 6 01-02-2017 Chronic Other nutritional; endocrine; and metabolic disorders (20 sources) Obese class I; Translations: [Obesity, unspecified] Onset: 4 12-20-2023 Chronic Other nutritional; endocrine; and metabolic disorders (1 source) Unintentional weight loss; Translations: [Abnormal weight loss] 05-30-2024 Episodic Other screening for suspected conditions (not mental disorders or infectious disease) (1 source) Imaging result abnormal; Translations: [Abnormal findings on diagnostic imaging of other specified body structures] 01-11-2024 Chronic Other upper respiratory disease (2 sources) Acute bronchospasm; Translations: [Acute bronchospasm] 01-02-2023 Episodic Other upper respiratory disease (2 sources) Acute bronchospasm; Translations: [Acute bronchospasm] 01-02-2023 Episodic Other upper respiratory infections (2 sources) Chronic sinusitis; Translations: [Chronic sinusitis, unspecified] Onset: 5 05-22-2025 Chronic Other upper respiratory infections (1 source) Sore throat symptom; Translations: [Acute pharyngitis, unspecified] 08-26-2024 Episodic Otitis media and related conditions (20 sources) Otitis media; Translations: [Otitis media, unspecified, unspecified ear] 09-16-2021 Episodic Germaine-; endo-; and myocarditis; cardiomyopathy (20 sources) Cardiomyopathy; Translations: [Other cardiomyopathies] Onset: 2 06-21-2012 Chronic Peripheral and visceral atherosclerosis (20 sources) Peripheral vascular disease; Translations: [Peripheral vascular disease, unspecified] Chronic Peritonitis and intestinal abscess (4 sources) Infectious disease of abdomen; Translations: [Peritonitis, unspecified] Onset: 4 01-05-2024 Episodic Pleurisy; pneumothorax; pulmonary collapse (3 sources) Pleurisy; Translations: [Pleurisy] Onset: 5 09-14-2024 Episodic Pneumonia (except that caused by tuberculosis or sexually transmitted disease) (20 sources) Infective pneumonia; Translations: [Pneumonia, unspecified organism] Episodic Prolapse of female genital organs (20 sources) Cystocele; Translations: [Cystocele, unspecified] Onset: 5 11-13-2014 Chronic Residual codes; unclassified (20 sources) Tobacco user; Translations: [Tobacco use] 08-04-2022 Episodic Comment on above: Discussed continued smoking today. She is down to just a few cigarettes a day because of the difficulty smoking in the residential. - I prescribed Nicotrol inhaler to be substituted for each cigarette, and to avoid smoking completely. Prescription sent to her pharmacy today, can be picked up by the residential personnel Residual codes; unclassified (10 sources) Tobacco use; Translations: [Tobacco use disorder] Episodic Residual codes; unclassified (20 sources) History of noncompliance with medication regimen; Translations: [History of medication noncompliance] 01-16-2023 Episodic Residual codes; unclassified (1 source) Acquired absence of other specified parts of digestive tract; Translations: [S/P cholecystectomy] Onset: 4 Episodic Residual codes; unclassified (3 sources) History of abdominal abscess; Translations: [Personal history of other specified conditions] 03-14-2024 Episodic Residual codes; unclassified (2 sources) Insomnia; Translations: [Insomnia, unspecified] 03-28-2025 Episodic Residual codes; unclassified (1 source) Confusional state; Translations: [Disorientation, unspecified] 03-28-2025 Episodic Residual codes; unclassified (1 source) Disorientation, unspecified; Translations: [Confusion] Onset: 5 Episodic Respiratory failure; insufficiency; arrest (adult) (1 source) Dependence on supplemental oxygen; Translations: [Dependence on supplemental oxygen] 03-28-2025 Chronic Screening or history of mental health and substance abuse (3 sources) Tobacco dependence syndrome; Translations: [Nicotine dependence, unspecified, uncomplicated] Onset: 6 12-17-2015 Chronic Sprains and strains (7 sources) Strain of muscle of chest wall; Translations: [Strain of muscle and tendon of back wall of thorax, initial encounter] 11-30-2023 Episodic Substance-related disorders (20 sources) Opioid withdrawal; Translations: [Opioid dependence with withdrawal] Onset: 6 Resolved: 3 12-22-2016 Chronic Substance-related disorders (20 sources) Opioid withdrawal; Translations: [Opioid use, unspecified with withdrawal] 09-16-2021 Episodic Superficial injury; contusion (1 source) Contusion of rib; Translations: [Contusion of left front wall of thorax, initial encounter] Episodic Thyroid disorders (20 sources) Hyperthyroidism; Translations: [Thyrotoxicosis, unspecified without thyrotoxic crisis or storm] Onset: 8 03-17-2018 Chronic Unclassified (1 source) Finding related to ability to cope with pain 10-22-2015 Unclassified (1 source) Patient encounter status 03-28-2025 Unclassified (1 source) Acute cough; Translations: [Acute cough] Onset: 5 Urinary tract infections (20 sources) Urinary tract infectious disease; Translations: [Urinary tract infection, site not specified] 06-14-2019 Episodic Viral infection (20 sources) Disease caused by 2019-nCoV; Translations: [COVID-19] Onset: 1 Episodic Past or Other Problems Problem Classification Problem Date Documented Da te Episodic/Chronic Abdominal hernia (14 sources) Gastroesophageal reflux disease with hiatal hernia; Translations: [Hiatal hernia] Onset: 2 12-16-2011 Episodic Abdominal pain (20 sources) Flank pain; Translations: [Unspecified abdominal pain] Onset: 6 Resolved: 4 08-21-2016 Episodic Acute and unspecified renal failure (20 sources) Acute renal failure syndrome; Translations: [Acute kidney failure, unspecified] Onset: 4 12-23-2023 Episodic Biliary tract disease (20 sources) Common bile duct calculus; Translations: [Calculus of bile duct without cholangitis or cholecystitis without obstruction] Onset: 4 12-07-2023 Episodic Blindness and vision defects (20 sources) Visual disturbance; Translations: [Unspecified visual disturbance] Onset: 6 08-21-2016 Episodic Calculus of urinary tract (3 sources) History of calculus of kidney; Translations: [Personal history of urinary calculi] Onset: 2 12-16-2011 Episodic Cardiac dysrhythmias (20 sources) Palpitations; Translations: [Palpitations] Onset: 7 01-02-2017 Episodic Complications of surgical procedures or medical care (20 sources) Abscess; Translations: [Infection following a procedure, other surgical site, initial encounter] Onset: 4 12-20-2023 Episodic Genitourinary symptoms and ill-defined conditions (3 sources) Blood in urine; Translations: [Hematuria, unspecified] Onset: 5 Episodic Neoplasms of unspecified nature or uncertain behavior (20 sources) Neoplasm of uncertain behavior of back; Translations: [Neoplasm of uncertain behavior of other specified sites] Onset: 7 12-22-2016 Episodic Nonspecific chest pain (20 sources) Atypical chest pain; Translations: [Chest pain] Onset: 2 2011 Episodic Other aftercare (4 sources) Other half-way (current) drug therapy; Translations: [Other half-way (current) drug therapy] Onset: 7 01-02-2017 Episodic Other aftercare (20 sources) Drug therapy finding; Translations: [Other termite renewal inspector (current) drug therapy] Onset: 8 Resolved: 3 04-27-2018 Episodic Other and ill-defined heart disease (20 sources) Mural thrombus of left ventricle; Translations: [Intracardiac thrombosis, not elsewhere classified] Onset: 4 Resolved: 4 01-03-2023 Chronic Other connective tissue disease (3 sources) Pain in lower limb; Translations: [Pain in left leg] Onset: 2 12-16-2011 Episodic Other fractures (20 sources) Compression fracture of thoracic vertebra; Translations: [Wedge compression fracture of unspecified thoracic vertebra, initial encounter for closed fracture] Onset: 4 12-01-2023 Episodic Other gastrointestinal disorders (1 source) Other dysphagia; Translations: [Esophageal dysphagia] Onset: 5 Episodic Other injuries and conditions due to external causes (20 sources) Catecholamine level - finding; Translations: [Elevated urine levels of drugs, medicaments and biological substances] Onset: 8 03-17-2018 Episodic Other lower respiratory disease (1 source) Hypoxemia; Translations: [Hypoxia] Onset: 5 Episodic Other nervous system disorders (20 sources) Tremor; Translations: [Tremor, unspecified] Onset: 7 06-24-2017 Episodic Other non-traumatic joint disorders (5 sources) Pain in right shoulder; Translations: [Acute pain of right shoulder] Onset: 5 08-29-2024 Episodic Other nutritional; endocrine; and metabolic disorders (3 sources) Body mass index (BMI) 29.0-29.9, adult; Translations: [Body mass index (BMI) 29.0-29.9, adult] Onset: 6 01-03-2016 Episodic Other screening for suspected conditions (not mental disorders or infectious disease) (20 sources) Patient encounter status; Translations: [Encounter for screening mammogram for malignant neoplasm of breast] Onset: 6 Resolved: 3 05-12-2018 Episodic Poisoning by other medications and drugs (20 sources) Poisoning by diagnostic agents, accidental (unintentional), initial encounter; Translations: [Poisoning by other specified drugs and medicinal substances] Onset: 4 12-20-2023 Episodic Residual codes; unclassified (20 sources) Memory impairment; Translations: [Other amnesia] Onset: 7 06-24-2017 Episodic Residual codes; unclassified (20 sources) History of cardiac catheterization; Translations: [Other specified postprocedural states] Onset: 2 01-20-2022 Episodic Comment on above: LEFT ANTERIOR DESCEN DING ARTERY: Mild luminal irregularities; PROX LAD: Mild calcification; DISTAL LAD: smooth: 50 % Stenosis; CIRCUMFLEX ARTERY: OM 1: Proximal - Mild luminal irregularities, Proximal - smooth: 25 % Stenosis; RIGHT CORONARY ARTERY: Mild luminal irregularities; AORTIC ROOT: Angiographically normal per cardiac cath 01/20/22 Dr. Best;12/18/17, 11/19/15, 09/02/21 Residual codes; unclassified (20 sources) Pain; Translations: [Pain, unspecified] Onset: 4 Resolved: 4 12-07-2023 Episodic Respiratory failure; insufficiency; arrest (adult) (20 sources) Acute respiratory failure; Translations: [Acute respiratory failure with hypoxia] Onset: 4 Resolved: 4 12-20-2023 Episodic Spondylosis; intervertebral disc disorders; other back problems (20 sources) Backache; Translations: [Dorsalgia, unspecified] Onset: 6 12-22-2016 Episodic Syncope (20 sources) Near syncope; Translations: [Syncope and collapse] Onset: 6 Resolved: 3 08-21-2016 Episodic Results Test Name Value Interpretation Reference Range Facility [facility] 05-24-2025 CNCO Letter Text Normal [facility] CNPAdeline 05-24-2025 CNPN Telephone ([id number]) ----- MARCIA MASCORRO ([id number]) 1955 F CHT Date Time Provider Department 05/24/25 MARCELO BUSH4 During your visit today, we recorded the following information about you: Carla Alvarado 05/24/2025 4:01 PM Signed Patient No Showed appointment. - Rachelle Unable to LVM for patient to call back to reschedule appointment vm full. DataArthart message sent to patient. Allergies As of Date: 05/24/2025 Noted Allergy Reaction CONTRAST DYE (IODINE) 12/20/2023 10 - Anaphylaxis Date Reviewed: 05/22/2025 Reviewed by: Marleny Dawn MA - Fully Assessed Reason for Visit: Appointment [[id number]] Cmt: Patient No Showed appointment. - Rachelle Unable to LVM for patient to call back to reschedule appointment full. CloudLock message sent to patient. Prescriptions as of 05/24/2025 - HYDROcodone-acetaminophen (NORCO) 5-325 mg per tablet Take 1 tablet by mouth every 8 hours as needed for pain. - amoxicillin-clavulanate potassium (AUGMENTIN) 875-125 mg per tablet Take 1 tablet by mouth two times a day for 7 days. - predniSONE (DELTASONE) 20 mg tablet Take 2 tablets by mouth once daily. - mirtazapine (REMERON) 15 mg tablet Take 1 tablet by mouth daily at bedtime. - potassium chloride 20 mEq/15 mL solution Take 15 mL by mouth once daily. Take this while taking furosemide. - oxyCODONE myristate 18 mg CSpT Take 1 capsule by mouth two times a day. (Dr. Forrest) - albuterol-budesonide HFA (AIRSUPRA) 90-80 mcg/actuation inhaler Inhale 2 puffs as instructed every 2 hours as needed for wheezing/shortness of breath. Do not take more than 12 inhalations in a 24 hour period. - atorvastatin (LIPITOR) 40 mg tablet Take 1 tablet by mouth daily at bedtime. - clopidogrel (PLAVIX) 75 mg tablet Take 1 tablet by mouth once daily. - DULoxetine DR (CYMBALTA) 60 mg capsule Take 1 capsule by mouth once daily. - gabapentin (NEURONTIN) 400 mg capsule Take 1 capsule by mouth two times a day for 360 days. - lisinopril (ZESTRIL) 5 mg tablet Take 1 tablet by mouth once daily. - omeprazole (PRILOSEC) 40 mg capsule Take 1 capsule by mouth once daily. - promethazine (PHENERGAN) 25 mg tablet Take 1 tablet by mouth every 6 hours as needed for nausea/vomiting. - senna-docusate (SENNA PLUS) 8.6-50 mg per tablet Take 1 tablet by mouth every morning AND 1 tablet daily at bedtime. - spironolactone (ALDACTONE) 25 mg tablet Take 1 tablet by mouth once daily. - sucralfate (CARAFATE) 100 mg/mL suspension Take 10 mL by mouth four times daily. (take prior to meals and at bedtime) - tiotropium bromide (SPIRIVA RESPIMAT) 2.5 mcg/actuation inhaler Inhale 2 puffs as instructed once daily. Inhale two puffs once daily. - Cholecalciferol, Vitamin D3, 125 mcg (5,000 unit) cap Take 1 capsule by mouth once daily. - magnesium hydroxide (MILK OF MAGNESIA) 400 mg/5 mL suspension Take 30 mL by mouth once daily as needed for constipation. - ketoconazole (NIZORAL) 2 % shampoo Apply to affected area three times a week. - LORazepam (ATIVAN) 1 mg tablet Take 1 tablet by mouth three times a day as needed for anxiety for up to 90 days. - carvedilol (COREG) 25 mg tablet Take 1 tablet by mouth two times a day with meals. - furosemide (LASIX) 40 mg tablet Take 1 tablet by mouth once daily. - potassium chloride ER (KLOR-CON) 20 mEq tablet Take 20 mEq by mouth once daily. - Nutritional Supplements (OPTIMENTAL) liqd Take 237 mL by mouth once daily. Okay with what insurance covers - Diaper,Brief, Adult,Disposable (DEPEND EASY FIT UNDERGARMENTS) Size Large pull up. Change depends once every 1-2 hrs. Dx incontinence (788.30) Prolapsed bladder (618.01) - acetaminophen (TYLENOL) 325 mg tablet Take 650 mg by mouth every 4 hours as needed. Problem List As Of Date 05/24/2025 Noted Resolved Essential hypertension, benign [I10] Lumbago [M54.50] 12/30/2005 Symptomatic menopausal or female climacteric st*12/30/2005 Anxiety [F41.9] Depression [F32.A] GERD (gastroesophageal reflux disease) [K21.9] Chronic pain [G89.29] COPD with exacerbation (HCC) [J44.1] 12/07/2023 Routine gynecological examination [Z01.419] 06/05/2014 09/23/2022 Well adult exam [Z00.00] 06/05/2014 09/23/2022 Stress incontinence, female [N39.3] 07/07/2014 Mixed hyperlipidemia [E78.2] 07/10/2014 Bladder prolapse, female, acquired [N81.10] 10/04/2014 Diverticulosis [K57.90] 03/20/2015 Smoker [F17.200] 12/28/2015 Epigastric pain [R10.13] 04/16/2016 04/16/2016 Colon cancer screening [Z12.11] 04/16/2016 04/16/2016 Retana's esophagus [K22.70] 08/21/2016 RUQ pain [R10.11] 08/21/2016 12/07/2023 Visual disturbances [H53.9] 08/21/2016 Near syncope [R55] 08/21/2016 09/23/2022 Heart palpitations [R00.2] 09/29/2016 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 Normal [facility] CNOVon 05-22-2025 CNOV Office Visit (WOUCA) ----- MARCIA MASCORRO ([id number]) 1955 F T Date Time Provider Department 05/22/25 10:30 AM RAJIV MUNOZ During your visit today, we recorded the following information about you: Temperature Pulse Respiration Blood pressure 99.4 degrees 78/minute 20/minute 138/90 Weight 78.9 kg Rajiv Munoz APRN.DONNA 05/22/2025 11:36 AM Signed 1. Acute cough (R05.1) 2. Sinobronchitis (J32.9) - Acute onset of cough, chest congestion, chills, body aches, and intermittent dyspnea for 2 days; no significant rhinorrhea or nasal congestion. - COVID test pending. - Start antibiotic and steroid therapy. 3. Pleural effusion, not elsewhere classified (J90) - Chest X-ray shows small right-sided pleural effusion without evidence of pneumonia. - Advised follow-up with primary care provider to re-evaluate effusion. - Chest x-ray showed no pneumonia but did reveal a small amount of fluid on the right lung without signs of infection. - Begin the prescribed antibiotic and steroid, taking both medications for the next few days as directed. - Your prescriptions have been sent to [facility] ([facility]). A printed copy will be provided for your records. - Schedule a follow-up appointment with your primary care provider to recheck the fluid on your lung. Rajiv Munoz APRN.DONNA 05/22/2025 11:43 AM Signed [facility] Subjective Marcia Mascorro is a 69 year old female. Patient presents with: Cough: Chest congestion x 2 days Cough The patient is a 69-year-old female presenting with cough, chest congestion, and dyspnea. Cough and Chest Congestion: - Onset 2 days ago. - Associated with chills and myalgias. - Productive cough with sputum production. - Denies rhinorrhea or nasal congestion. - Denies sore throat. - Denies chest pain. Dyspnea: - Intermittent episodes of dyspnea. Peripheral Neuropathy: - Reports neuropathy. Review of Systems Respiratory: Positive for cough. Constitutional: (+) chills, (-) fever Ears/Nose/Mouth/Throat: (+) sore throat, (-) rhinorrhea, (-) nasal congestion Cardiovascular: (+) peripheral edema, (-) chest pain Respiratory: (+) cough, (+) chest congestion, (+) dyspnea, (+) sputum production Musculoskeletal: (+) myalgias Objective BP 138/90 Pulse 78 Temp 37.4 ?C (99.4 ?F) Resp 20 Wt 78.9 kg (173 lb 15.1 oz) SpO2 93% BMI 30.06 kg/m? PAST MEDICAL HISTORY Diagnosis Date - Abdominal aortic aneurysm - JOVANY (acute kidney injury) - Anaphylactic reaction due to contrast - Anxiety - Retana's esophagus with high grade dysplasia 06/24/2023 biopsy interpretation: prominent low-grade dysphasia AND focal superficial high-grad dysplasia - Retana's esophagus without dysplasia 09/13/2019 - Bile leak, postoperative - CAD (coronary artery disease) - CHF (congestive heart failure) (HCC) - Chronic back pain - Chronic pain low back, sees pain MGT: Dr. Nayak - Compression fracture of thoracic vertebra (HCC) - COPD (chronic obstructive pulmonary disease) (HCC) - Depression - Diabetes mellitus (HCC) - Diverticulosis - Essential hypertension, benign Sees Dr. Best - GERD (gastroesophageal reflux disease) - Hiatal hernia 06/24/2023 - Hyperthyroidism - Incontinence 07/07/2014 - LV (left ventricular) mural thrombus 12/01/2023 - Mixed hyperlipidemia - Obesity - Opioid dependence (HCC) 01/15/2020 In 180 as of 01/2020 per ER report from [facility]. - Palpitation - Primary cardiomyopathy (HCC) - Pulmonary emphysema (HCC) - Schatzki's ring 06/24/2023 - SVT (supraventricular tachycardia) (HCC) - Tremor PAST SURGICAL HISTORY Procedure Laterality Date - 2D ECHO (EXEP) 01/19/2017 EF=55%, mild LVH, LA enlargement, TX and TI, Diastolic dysfunction. - 2D ECHO (EXEP) 12/18/2017 EF=55%, mild LVH, mild diastolic dysfunct, - COLONOSCOPY SCREENING 04/16/2016 mac. repeat 10 yrs - EGD W/O [facility] SPEC VARICIES INJ 04/16/2016 v - EGD WITH BIOPSY(S) 07/28/2023 dilation of pylorus; Dr. Martinez - ERCP DUCT STENT PLACEMENT 07/28/2023 Dr. Martinez - F EGD WITH DILATATION 06/24/2023 Retana's-prominent low-grade dysphasia AND focal superficial high-grad dysplasia; hiatal hernia; Dr. Martinez - LAPAROSCOPIC CHOLECYSTECTOMY 12/09/2023 Dr. Tejada--RUQ abcess post op - TOTAL ABDOMINAL HYSTERECT W/WO RMVL TUBE OVARY ALLERGIES Contrast Dye [Iodine] MEDICATIONS - HYDROcodone-acetaminophen (NORCO) 5-325 mg per tablet Take 1 tablet by mouth every 8 hours as needed for pain. - mirtazapine (REMERON) 15 mg tablet Take 1 tablet by mouth daily at bedtime. - potassium chloride 20 mEq/15 mL solution Take 15 mL by mouth once daily. Take this while taking furosemide. - oxyCODONE myristate 18 mg CSpT Take 1 capsule by mouth two times a day. (Dr. Forrest) - albuterol-budesonide HFA (AIRSUPRA) 90-8 (more content not included)... Normal [facility] COVID & INFLUENZA A/B & RSV PCR, ROUTINEon 05-22-2025 FLUAV RNA KAYDEN+probe Ql (Unsp spec) Not detected Not Detected [facility] FLUBV RNA KAYDEN+probe Ql (Unsp spec) Not detected Not Detected [facility] Interpretation and review of laboratory results Normal [facility] RSV A RNA KAYDEN+probe Ql (Unsp spec) Not detected Not Detected [facility] SARS-CoV-2 (COVID-19) RNA KAYDEN+probe Ql (Unsp spec) Not detected See comment [facility] Reference Range (the expected result in uninfected individuals): Not detected [facility] XR CHEST 2V FRONTAL/LATon XR CHEST 2V FRONTAL/LAT * * *Final Repor t* * * DATE OF EXAM: May 22 2025 11:17AM WOX 5291 - XR CHEST 2V FRONTAL/LAT / PROCEDURE REASON: Acute cough * * * * Physician Interpretation * * * * EXAMINATION: CHEST RADIOGRAPH (2 VIEW FRONTAL and LATERAL) CLINICAL HISTORY: Acute cough MQ: XC2_6 EXAM DATE/TIME: 05/22/2025 11:17 AM COMPARISON: Chest x-ray dated 06/17/2024 RESULT: Lines, tubes, and devices: None. Lungs and pleura: No evidence of overt pulmonary edema. No consolidation. Blunting of the right lateral costophrenic sulcus is suspect for trace right pleural effusion. Cardiomediastinal silhouette: Stable cardiomediastinal silhouette with moderate hiatal hernia. Bones and soft tissues: Osseous demineralization. Chronic mild compression deformity of a midthoracic vertebral body. IMPRESSION: Trace right pleural effusion suspected Service Consultant: ANNE Transcribe Date/Time: May 22 2025 11:22A Dictated by : APOLLO GORDON MD This examination was interpreted and the report reviewed and electronically signed by: APOLLO GORDON MD on May 22 2025 11:23AM EST [id number] Normal [facility] XR Chest PA and Lateralon IMPRESSION: Trace right pleural effusion suspected Service Consultant: ANNE Transcribe Date/Time: May 22 2025 11:22A Dictated by : APOLLO GORDON MD This examination was interpreted and the report reviewed and electronically signed by: APOLLO GORDON MD on May 22 2025 11:23AM EST DIVISION OF RADIOLOGY * * *Final Report* * * DATE OF EXAM: May 22 2025 11:17AM WOX 5291 - XR CHEST 2V FRONTAL/LAT / PROCEDURE REASON: Acute cough * * * * Physician Interpretation * * * * EXAMINATION: CHEST RADIOGRAPH (2 VIEW FRONTAL & LATERAL) CLINICAL HISTORY: Acute cough MQ: XC2_6 EXAM DATE/TIME: 05/22/2025 11:17 AM COMPARISON: Chest x-ray dated 06/17/2024 RESULT: Lines, tubes, and devices: None. Lungs and pleura: No evidence of overt pulmonary edema. No consolidation. Blunting of the right lateral costophrenic sulcus is suspect for trace right pleural effusion. Cardiomediastinal silhouette: Stable cardiomediastinal silhouette with moderate hiatal hernia. Bones and soft tissues: Osseous demineralization. Chronic mild compression deformity of a midthoracic vertebral body. DIVISION OF RADIOLOGY Provider, [facility] - 05/22/2025 * * *Final Report* * * DATE OF EXAM: May 22 2025 11:17AM WOX 5291 - XR CHEST 2V FRONTAL/LAT / PROCEDURE REASON: Acute cough * * * * Physician Interpretation * * * * EXAMINATION: CHEST RADIOGRAPH (2 VIEW FRONTAL & LATERAL) CLINICAL HISTORY: Acute cough MQ: XC2_6 EXAM DATE/TIME: 05/22/2025 11:17 AM COMPARISON: Chest x-ray dated 06/17/2024 RESULT: Lines, tubes, and devices: None. Lungs and pleura: No evidence of overt pulmonary edema. No consolidation. Blunting of the right lateral costophrenic sulcus is suspect for trace right pleural effusion. Cardiomediastinal silhouette: Stable cardiomediastinal silhouette with moderate hiatal hernia. Bones and soft tissues: Osseous demineralization. Chronic mild compression deformity of a midthoracic vertebral body. IMPRESSION IMPRESSION: Trace right pleural effusion suspected Service Consultant: ANNE Transcribe Date/Time: May 22 2025 11:22A Dictated by : APOLLO GORDON MD This examination was interpreted and the report reviewed and electronically signed by: APOLLO GORDON MD on May 22 2025 11:23AM EST [facility] Radiology Study observation (narrative) Doris jacobo [facility] XR Chest PA and LateralOrder ed By: [facility] Provider on 05-22-2025 [facility] CNPNon 04-04-2025 CNPN Telephone (INTMWS) ----- MARCIA MASCORRO ([id number]) 1955 F CHT Date Time Provider Department 04/04/25 GABRIEL GALVAN INTMWS During your visit today, we recorded the following information about you: Nora Crespo APRN.[employer] 04/04/2025 12:46 PM Signed Urine culture results from [facility] shows e coli UTI. Infection is susceptible to Macrobid. Script sent to [facility] pharmacy. Please fax signed order to [facility]. Kimi Pelayo MA 04/04/2025 4:04 PM Signed Spoke with nurse at [facility] and script received and they will inform patient and give her antibiotic Kimi Pelayo MA Allergies As of Date: 04/04/2025 Noted Allergy Reaction CONTRAST DYE (IODINE) 12/20/2023 10 - Anaphylaxis Date Reviewed: 03/28/2025 Reviewed by: Nora Crespo APRN.[employer] - Fully Assessed Reason for Visit: Results [95] Primary Visit Diagnosis:Acute cystitis without hematuria [N30.00] Order(s):nitrofurantoin monohydrate and macrocrystal (MACROBID) 100 mg capsuleTake 1 capsule by mouth two times a day for 7 days.Disp: 14 capsuleRfl: 0 Prescriptions as of 04/04/2025 - nitrofurantoin monohydrate and macrocrystal (MACROBID) 100 mg capsule Take 1 capsule by mouth two times a day for 7 days. - albuterol-budesonide HFA (AIRSUPRA) 90-80 mcg/actuation inhaler Inhale 2 puffs as instructed every 2 hours as needed for wheezing/shortness of breath. Do not take more than 12 inhalations in a 24 hour period. - atorvastatin (LIPITOR) 40 mg tablet Take 1 tablet by mouth daily at bedtime. - clopidogrel (PLAVIX) 75 mg tablet Take 1 tablet by mouth once daily. - DULoxetine DR (CYMBALTA) 60 mg capsule Take 1 capsule by mouth once daily. - gabapentin (NEURONTIN) 400 mg capsule Take 1 capsule by mouth two times a day for 360 days. - lisinopril (ZESTRIL) 5 mg tablet Take 1 tablet by mouth once daily. - omeprazole (PRILOSEC) 40 mg capsule Take 1 capsule by mouth once daily. - promethazine (PHENERGAN) 25 mg tablet Take 1 tablet by mouth every 6 hours as needed for nausea/vomiting. - senna-docusate (SENNA PLUS) 8.6-50 mg per tablet Take 1 tablet by mouth every morning AND 1 tablet daily at bedtime. - spironolactone (ALDACTONE) 25 mg tablet Take 1 tablet by mouth once daily. - sucralfate (CARAFATE) 100 mg/mL suspension Take 10 mL by mouth four times daily. (take prior to meals and at bedtime) - tiotropium bromide (SPIRIVA RESPIMAT) 2.5 mcg/actuation inhaler Inhale 2 puffs as instructed once daily. Inhale two puffs once daily. - Cholecalciferol, Vitamin D3, 125 mcg (5,000 unit) cap Take 1 capsule by mouth once daily. - magnesium hydroxide (MILK OF MAGNESIA) 400 mg/5 mL suspension Take 30 mL by mouth once daily as needed for constipation. - ketoconazole (NIZORAL) 2 % shampoo Apply to affected area three times a week. - mirtazapine (REMERON) 15 mg tablet Take 1 tablet by mouth daily at bedtime. - LORazepam (ATIVAN) 1 mg tablet Take 1 tablet by mouth three times a day as needed for anxiety for up to 90 days. - carvedilol (COREG) 25 mg tablet Take 1 tablet by mouth two times a day with meals. - furosemide (LASIX) 40 mg tablet Take 1 tablet by mouth once daily. - potassium chloride ER (KLOR-CON) 20 mEq tablet Take 20 mEq by mouth once daily. - Nutritional Supplements (OPTIMENTAL) liqd Take 237 mL by mouth once daily. Okay with what insurance covers - Diaper,Brief, Adult,Disposable (DEPEND EASY FIT UNDERGARMENTS) Size Large pull up. Change depends once every 1-2 hrs. Dx incontinence (788.30) Prolapsed bladder (618.01) - oxyCODONE myristate (XTAMPZA ER) 27 mg CSpT Take 1 capsule by mouth two times a day. - acetaminophen (TYLENOL) 325 mg tablet Take 650 mg by mouth every 4 hours as needed. Problem List As Of Date 04/04/2025 Noted Resolved Essential hypertension, benign [I10] Lumbago [M54.50] 12/30/2005 Symptomatic menopausal or female climacteric st*12/30/2005 Anxiety [F41.9] Depression [F32.A] GERD (gastroesophageal reflux disease) [K21.9] Chronic pain [G89.29] COPD with exacerbation (HCC) [J44.1] 12/07/2023 Routine gynecological examination [Z01.419] 06/05/2014 09/23/2022 Well adult exam [Z00.00] 06/05/2014 09/23/2022 Stress incontinence, female [N39.3] 07/07/2014 Mixed hyperlipidemia [E78.2] 07/10/2014 Bladder prolapse, female, acquired [N81.10] 10/04/2014 Diverticulosis [K57.90] 03/20/2015 Smoker [F17.200] 12/28/2015 Epigastric pain [R10.13] 04/16/2016 04/16/2016 Colon cancer screening [Z12.11] 04/16/2016 04/16/2016 Retana's esophagus [K22.70] 08/21/2016 RUQ pain [R10.11] 08/21/2016 12/07/2023 Visual disturbances [H53.9] 08/21/2016 Near syncope [R55] 08/21/2016 09/23/2022 Heart palpitations [R00.2] 09/29/2016 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] 12/22/2016 Medicare annual wellness visit, subsequent [Z00*06/24/2017 09/23/2022 Tremor [R25.1] 06/24/2017 Memory (more content not included)... Normal [facility] 25(OH)D3 SerPl-ncon 2024 25-hydroxyvitamin D3 [Mass/Vol] 33.1 ng/mL Normal 31.0-80.0 [facility] Comment on above: Order Comment: Speci men Type: BLOOD SPECIMENOrdering Facility: [facility] Address: [address] [place] [address] Result Comment: Clas sification of 25 [place] Vitamin D status: Deficiency/Insufficiency: < or = 30 ng/ml. Sufficiency/Optimal Levels: 31-80 ng/mL Toxicity: > 100 ng/mL. Test performed by chemiluminescent immunoassay. Performed By: #### 1 989-3 ####[facility] LABCLIA [id number] [place] [address] [place] CBC W Auto Differential pane l (Bld)on 03-28-2025 Basophils (Bld) [#/Vol] 0.05 10*3/uL [facility] Basophils/100 WBC (Bld) 0.7 % [facility] Differential cell count method Nom (Bld) Auto [facility] Eosinophils (Bld) [#/Vol] 0.22 10*3/uL [facility] Eosinophils/100 WBC (Bld) 3.1 % [facility] Erythrocyte distribution width (RBC) [Ratio] 13.5 % 11.5 - 15.0 % [facility] Hematocrit (Bld) [Volume fraction] 41.7 % 36.0 - 46.0 % [facility] Hemoglobin (Bld) [Mass/Vol] 13.4 g/dL 11.5 - 15.5 g/dL [facility] Immature granulocytes (Bld) [#/Vol] [facility] Immature granulocytes/100 WBC (Bld) 0.1 % [facility] Lymphocytes (Bld) [#/Vol] 2.71 10*3/uL [facility] Lymphocytes/100 WBC (Bld) 38.1 % [facility] MCH (RBC) [Entitic mass] 31.2 pg 26. 0 - 34.0 pg [facility] MCHC (RBC) [Mass/Vol] 32.1 g/dL 30.5 - 36.0 g/dL [facility] MCV (RBC) [Entitic vol] 97 fL 80.0 - 100.0 fL [facility] Monocytes (Bld) [#/Vol] 0.5 10*3/uL [facility] Monocytes/100 WBC (Bld) 7 % [facility] Neutrophils (Bld) [#/Vol] 3.62 10*3/uL [facility] Neutrophils/100 WBC (Bld) 51 % [facility] Nucleated RBC (Bld) [#/Vol] [facility] Nucleated RBC/100 WBC (Bld) [Ratio] 0 % /100 WBC [facility] Platelet mean volume (Bld) [Entitic vol] 10.5 fL 9.0 - 12.7 fL [facility] Platelets (Bld) [#/Vol] 184 10*3/uL [facility] RBC (Bld) [#/Vol] 4.3 10*6/uL 3.90 - 5.20 m/uL [facility] WBC (Bld) [#/Vol] 7.11 10*3/uL [facility] Basophils (Bld) [#/Vol] 0.05 10*3/uL Normal <0.11 [facility] Comment on above: Order Comment: Speci men Type: BLOOD SPECIMENOrdering Facility: [facility] Address: [address] [place] [address] Performed By: #### 5 7021-8 ####[facility] LABCLIA [id number] [address] [place] Basophils/100 WBC (Bld) 0.7 % Normal [facility] Comment on above: Order Comment: Speci men Type: BLOOD SPECIMENOrdering Facility: [facility] Address: [address] [place] [address] Performed By: #### 5 7021-8 ####[facility] LABCLIA [id number] [place] [address] [place] Differential cell count method Nom (Bld) Auto Normal [facility] Comment on above: Order Comment: Speci men Type: BLOOD SPECIMENOrdering Facility: [facility] Address: [address] [place] [address] Performed By: #### 5 7021-8 ####[facility] LABCLIA [id number] [place] [address] [place] Eosinophils (Bld) [#/Vol] 0.22 10*3/uL Normal <0.46 [facility] Comment on above: Order Comment: Speci men Type: BLOOD SPECIMENOrdering Facility: [facility] Address: [address] [place] [address] Performed By: #### 5 7021-8 ####[facility] LABIA [id number] [place] [address] [place] Eosinophils/100 WBC (Bld) 3.1 % Normal [facility] Comment on above: Order Comment: Speci men Type: BLOOD SPECIMENOrdering Facility: [facility] Address: [address] [place] [address] Performed By: #### 5 7021-8 ####[facility] LABCLIA [id number] [place] [address] [place] Erythrocyte distribution width (RBC) [Ratio] 13.5 % Normal 11.5-15.0 [facility] Comment on above: Order Comment: Speci men Type: BLOOD SPECIMENOrdering Facility: [facility] Address: [address] [place] [address] Performed By: #### 5 7021-8 ####[facility] LABCLIA [id number] [place] [address] [place] Hematocrit (Bld) [Volume fraction] 41.7 % Normal 36.0-46.0 [facility] Comment on above: Order Comment: Speci men Type: BLOOD SPECIMENOrdering Facility: [facility] Address: [address] [place] [address] Performed By: #### 5 7021-8 ####[facility] LABCLIA [id number] [place] [address] [place] Hemoglobin (Bld) [Mass/Vol] 13.4 g/dL Normal 11.5-15.5 [facility] Comment on above: Order Comment: Speci men Type: BLOOD SPECIMENOrdering Facility: [facility] Address: [address] [place] [address] Performed By: #### 5 7021-8 ####[facility] LABCLIA [id number] [place] [address] [place] Immature granulocytes (Bld) [#/Vol] 10*3/uL Normal <0.10 [facility] Comment on above: Order Comment: Speci men Type: BLOOD SPECIMENOrdering Facility: [facility] Address: [address] [place] [address] Performed By: #### 5 7021-8 ####[facility] LABIA [id number] [place] [address] [place] Immature granulocytes/100 WBC (Bld) 0.1 % Normal [facility] Comment on above: Order Comment: Speci men Type: BLOOD SPECIMENOrdering Facility: [facility] Address: [address] [place] [address] Performed By: #### 5 7021-8 ####[facility] LABIA [id number] [place] [address] [place] Lymphocytes (Bld) [#/Vol] 2.71 10*3/uL Normal 1.00-4.00 [facility] Comment on above: Order Comment: Speci men Type: BLOOD SPECIMENOrdering Facility: [facility] Address: [address] [place] [address] Performed By: #### 5 7021-8 ####[facility] LABIA [id number] [place] [address] [place] Lymphocytes/100 WBC (Bld) 38.1 % Normal [facility] Comment on above: Order Comment: Speci men Type: BLOOD SPECIMENOrdering Facility: [facility] Address: [address] [place] [address] Performed By: #### 5 7021-8 ####[facility] LABIA [id number] [place] [address] [place] MCH (RBC) [Entitic mass] 31.2 pg Normal 26.0-34.0 [facility] Comment on above: Order Comment: Speci men Type: BLOOD SPECIMENOrdering Facility: [facility] Address: [address] [place] [address] Performed By: #### 5 7021-8 ####[facility] LABIA [id number] [place] [id number] [place] MCHC (RBC) [Mass/Vol] 32.1 g/dL Normal 30.5-36.0 [facility] Comment on above: Order Comment: Speci men Type: BLOOD SPECIMENOrdering Facility: [facility] Address: [address] [place] [address] Performed By: #### 5 7021-8 ####[facility] LABIA [id number] [place] [id number] [place] MCV (RBC) [Entitic vol] 97.0 fL Normal 80.0-100.[address] [facility] Comment on above: Order Comment: Speci men Type: BLOOD SPECIMENOrdering Facility: [facility] Address: [address] [place] [address] Performed By: #### 5 7021-8 ####[facility] LABIA [id number] [place] [id number] [place] Monocytes (Bld) [#/Vol] 0.50 10*3/uL Normal <0.87 [facility] Comment on above: Order Comment: Speci men Type: BLOOD SPECIMENOrdering Facility: [facility] Address: [address] [place] [address] Performed By: #### 5 7021-8 ####[facility] LABCLIA [id number] [facility] [address] [place] Monocytes/100 WBC (Bld) 7.0 % Normal [facility] Comment on above: Order Comment: Speci men Type: BLOOD SPECIMENOrdering Facility: [facility] Address: [address] [place] [address] Performed By: #### 5 7021-8 ####[facility] LABCLIA [id number] [place] [address] [place] Neutrophils (Bld) [#/Vol] 3.62 10*3/uL Normal 1.45-7.50 [facility] Comment on above: Order Comment: Speci men Type: BLOOD SPECIMENOrdering Facility: [facility] Address: [address] [place] [address] Performed By: #### 5 7021-8 ####[facility] LABCLIA [id number] [place] [address] [place] Neutrophils/100 WBC (Bld) 51.0 % Normal [facility] Comment on above: Order Comment: Speci men Type: BLOOD SPECIMENOrdering Facility: [facility] Address: [address] [place] [address] Performed By: #### 5 7021-8 ####[facility] LABCLIA [id number] [place] [address] [place] Nucleated RBC (Bld) [#/Vol] 10*3/uL Normal <0.01 [facility] Comment on above: Order Comment: Speci men Type: BLOOD SPECIMENOrdering Facility: [facility] Address: [address] [place] [address] Performed By: #### 5 7021-8 ####[facility] LABCLIA [id number] [place] [address] [place] Nucleated RBC/100 WBC (Bld) [Ratio] 0.0 /100 WBC Normal [facility] Comment on above: Order Comment: Speci men Type: BLOOD SPECIMENOrdering Facility: [facility] Address: [address] [place] [address] Performed By: #### 5 7021-8 ####[facility] LABCLIA [id number] [place] [address] [place] Platelet mean volume (Bld) [Entitic vol] 10.5 fL Normal 9.0-12.7 [facility] Comment on above: Order Comment: Speci men Type: BLOOD SPECIMENOrdering Facility: [facility] Address: [address] [place] [address] Performed By: #### 5 7021-8 ####[facility] LABIA [id number] [place] [address] [place] Platelets (Bld) [#/Vol] 184 10*3/uL Normal 150-400 [facility] Comment on above: Order Comment: Speci men Type: BLOOD SPECIMENOrdering Facility: [facility] Address: [address] [place] [address] Performed By: #### 5 7021-8 ####[facility] LABCLIA [id number] [place] [address] [place] RBC (Bld) [#/Vol] 4.30 10*6/uL Normal 3.90-5.20 [facility] Comment on above: Order Comment: Speci men Type: BLOOD SPECIMENOrdering Facility: [facility] Address: [address] [place] [address] Performed By: #### 5 7021-8 ####[facility] LABCLIA [id number] [place] [id number] [place] WBC (Bld) [#/Vol] 7.11 10*3/uL Normal 3.70-11.00 [facility] Comment on above: Order Comment: Speci men Type: BLOOD SPECIMENOrdering Facility: [facility] Address: [address] [place] [address] Performed By: #### 5 7021-8 ####[facility] [id number] [place] [id number] [place] CNOVon 03-28-2025 CNOV Office Visit (INTMWS ) ----- MARCIA MASCORRO ([id number]) 1955 F T Date Time Provider Department 03/28/25 11:00 AM NORA CRESPO INTMARTURO During your visit today, we recorded the following information about you: Pulse Respiration Blood pressure Weight 60/minute 14/minute 106/62 77.9 kg Height 1.62 m Nora Crespo APRN.[employer] 03/28/2025 2:11 PM Signed SUBJECTIVE Marcia Mascorro is a 69 year old female here today for a check up on her medical problems. Chief Complaint Patient presents with: Follow Up: Medication HPI. Marcia Mascorro is a 69-year-old female with a history of anxiety, depression, and chronic pain, presenting with new onset of scalp pruritus and black spots on her scalp, as well as concerns about recent discontinuation of Ativan. Marcia reports a 2-day history of intense scalp pruritus and the appearance of black spots on her scalp. She describes her scalp as very dry and notes that the pruritus is severe enough to cause significant discomfort. She has been picking at her scalp and hair, which is unusual behavior for her. She denies seeing any lice or other visible parasites. Marcia also reports feeling crazy and not like herself since her Ativan was discontinued 3 days ago. She has been on Ativan for a long time to manage her anxiety and has not taken any doses in the last 3 days. She denies any withdrawal symptoms such as tremors, seizures, or hallucinations, but feels more anxious and stressed than usual. She has a history of chronic pain and is under the care of a bobbin painter. She is taking multiple medications, including Phenergan for nausea, which she finds effective. She uses oxygen at home at 3 liters per minute and reports no issues with her breathing. She also takes water pills and uses Milk of Magnesia for constipation, which she experiences frequently. Marcia reports poor sleep quality and has been taking melatonin without significant improvement. She feels more depressed and anxious than usual and attributes this to her chronic illness and recent changes in her medication regimen. She also reports feeling more stressed due to her upcoming bariatric surgery and the recent of a close friend. She is accompanied by her son who reports that Marcia has been more anxious and stressed than usual and is concerned about the sudden discontinuation of Ativan. Her medications were reviewed today and her list is now up to date. Medications Current Outpatient Medications Medication Sig potassium chloride ER (KLOR-CON) 20 mEq tablet Take 20 mEq by mouth once daily. Nutritional Supplements (OPTIMENTAL) liqd Take 237 mL by mouth once daily. Okay with what insurance covers Diaper,Brief, Adult,Disposable (DEPEND EASY FIT UNDERGARMENTS) Size Large pull up. Change depends once every 1-2 hrs. Dx incontinence (788.30) Prolapsed bladder (618.01) oxyCODONE myristate (XTAMPZA ER) 27 mg CSpT Take 1 capsule by mouth two times a day. acetaminophen (TYLENOL) 325 mg tablet Take 650 mg by mouth every 4 hours as needed. albuterol-budesonide HFA (AIRSUPRA) 90-80 mcg/actuation inhaler Inhale 2 puffs as instructed every 2 hours as needed for wheezing/shortness of breath. Do not take more than 12 inhalations in a 24 hour period. atorvastatin (LIPITOR) 40 mg tablet Take 1 tablet by mouth daily at bedtime. clopidogrel (PLAVIX) 75 mg tablet Take 1 tablet by mouth once daily. DULoxetine DR (CYMBALTA) 60 mg capsule Take 1 capsule by mouth once daily. gabapentin (NEURONTIN) 400 mg capsule Take 1 capsule by mouth two times a day for 360 days. lisinopril (ZESTRIL) 5 mg tablet Take 1 tablet by mouth once daily. omeprazole (PRILOSEC) 40 mg capsule Take 1 capsule by mouth once daily. promethazine (PHENERGAN) 25 mg tablet Take 1 tablet by mouth every 6 hours as needed for nausea/vomiting. senna-docusate (SENNA PLUS) 8.6-50 mg per tablet Take 1 tablet by mouth every morning AND 1 tablet daily at bedtime. spironolactone (ALDACTONE) 25 mg tablet Take 1 tablet by mouth once daily. sucralfate (CARAFATE) 100 mg/mL suspension Take 10 mL by mouth four times daily. (take prior to meals and at bedtime) tiotropium bromide (SPIRIVA RESPIMAT) 2.5 mcg/actuation inhaler Inhale 2 puffs as instructed once daily. Inhale two puffs once daily. Cholecalciferol, Vitamin D3, 125 mcg (5,000 unit) cap Take 1 capsule by mouth once daily. magnesium hydroxide (MILK OF MAGNESIA) 400 mg/5 mL suspension Take 30 mL by mouth once daily as needed for constipation. ketoconazole (NIZORAL) 2 % shampoo Apply to affected area three times a week. mirtazapine (REMERON) 15 mg tablet Take 1 tablet by mouth daily at bedtime. LORazepam (ATIVAN) 1 mg tablet Take 1 tablet by mouth three times a day as needed for anxiety for up to 90 days. carvedilol (COREG) 25 mg tablet Take 1 tablet by mouth two times a (more content not included)... Normal [facility] 03-28-2025 [facility] Telephone (INTMWS) ----- MARCIA MASCORRO ([id number]) 1955 F [facility] Date Time Provider Department 03/28/25 GABRIEL GALVAN INTMWS During your visit today, we recorded the following information about you: Nora Crespo APRN.DONNA 03/28/2025 1:00 PM Signed Can we please send the med list from patient's visit today to [facility]? Please call and let them know that I went through and compared their med list with ours and the one we have should be her current medications (including changes made today). Please let them know that we did not have Zoloft (sertraline) on our list. This can be discontinued, we increased her Cymbalta and added Remeron today. We also sent a script for ketoconazole shampoo and we will prescribe her Ativan since [facility] has changed its policy and will no longer prescribe this for her. Peyton Lindo MA 03/28/2025 1:50 PM Signed Faxed to [facility] [phone] Peyton Lindo MA Allergies As of Date: 03/28/2025 Noted Allergy Reaction CONTRAST DYE (IODINE) 12/20/2023 10 - Anaphylaxis Date Reviewed: 03/28/2025 Reviewed by: Nora Crespo APRN.[employer] - Fully Assessed Prescriptions as of 03/28/2025 - albuterol-budesonide HFA (AIRSUPRA) 90-80 mcg/actuation inhaler Inhale 2 puffs as instructed every 2 hours as needed for wheezing/shortness of breath. Do not take more than 12 inhalations in a 24 hour period. - atorvastatin (LIPITOR) 40 mg tablet Take 1 tablet by mouth daily at bedtime. - clopidogrel (PLAVIX) 75 mg tablet Take 1 tablet by mouth once daily. - DULoxetine DR (CYMBALTA) 60 mg capsule Take 1 capsule by mouth once daily. - gabapentin (NEURONTIN) 400 mg capsule Take 1 capsule by mouth two times a day for 360 days. - lisinopril (ZESTRIL) 5 mg tablet Take 1 tablet by mouth once daily. - omeprazole (PRILOSEC) 40 mg capsule Take 1 capsule by mouth once daily. - promethazine (PHENERGAN) 25 mg tablet Take 1 tablet by mouth every 6 hours as needed for nausea/vomiting. - senna-docusate (SENNA PLUS) 8.6-50 mg per tablet Take 1 tablet by mouth every morning AND 1 tablet daily at bedtime. - spironolactone (ALDACTONE) 25 mg tablet Take 1 tablet by mouth once daily. - sucralfate (CARAFATE) 100 mg/mL suspension Take 10 mL by mouth four times daily. (take prior to meals and at bedtime) - tiotropium bromide (SPIRIVA RESPIMAT) 2.5 mcg/actuation inhaler Inhale 2 puffs as instructed once daily. Inhale two puffs once daily. - Cholecalciferol, Vitamin D3, 125 mcg (5,000 unit) cap Take 1 capsule by mouth once daily. - magnesium hydroxide (MILK OF MAGNESIA) 400 mg/5 mL suspension Take 30 mL by mouth once daily as needed for constipation. - ketoconazole (NIZORAL) 2 % shampoo Apply to affected area three times a week. - mirtazapine (REMERON) 15 mg tablet Take 1 tablet by mouth daily at bedtime. - LORazepam (ATIVAN) 1 mg tablet Take 1 tablet by mouth three times a day as needed for anxiety for up to 90 days. - carvedilol (COREG) 25 mg tablet Take 1 tablet by mouth two times a day with meals. - furosemide (LASIX) 40 mg tablet Take 1 tablet by mouth once daily. - potassium chloride ER (KLOR-CON) 20 mEq tablet Take 20 mEq by mouth once daily. - Nutritional Supplements (OPTIMENTAL) liqd Take 237 mL by mouth once daily. Okay with what insurance covers - Diaper,Brief, Adult,Disposable (DEPEND EASY FIT UNDERGARMENTS) Size Large pull up. Change depends once every 1-2 hrs. Dx incontinence (788.30) Prolapsed bladder (618.01) - oxyCODONE myristate (XTAMPZA ER) 27 mg CSpT Take 1 capsule by mouth two times a day. - acetaminophen (TYLENOL) 325 mg tablet Take 650 mg by mouth every 4 hours as needed. Problem List As Of Date 03/28/2025 Noted Resolved Essential hypertension, benign [I10] Lumbago [M54.50] 12/30/2005 Symptomatic menopausal or female climacteric st*12/30/2005 Anxiety [F41.9] Depression [F32.A] GERD (gastroesophageal reflux disease) [K21.9] Chronic pain [G89.29] COPD with exacerbation (HCC) [J44.1] 12/07/2023 Routine gynecological examination [Z01.419] 06/05/2014 09/23/2022 Well adult exam [Z00.00] 06/05/2014 09/23/2022 Stress incontinence, female [N39.3] 07/07/2014 Mixed hyperlipidemia [E78.2] 07/10/2014 Bladder prolapse, female, acquired [N81.10] 10/04/2014 Diverticulosis [K57.90] 03/20/2015 Smoker [F17.200] 12/28/2015 Epigastric pain [R10.13] 04/16/2016 04/16/2016 Colon cancer screening [Z12.11] 04/16/2016 04/16/2016 Retana's esophagus [K22.70] 08/21/2016 RUQ pain [R10.11] 08/21/2016 12/07/2023 Visual disturbances [H53.9] 08/21/2016 Near syncope [R55] 08/21/2016 09/23/2022 Heart palpitations [R00.2] 09/29/2016 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 Normal [facility] Comprehensive metabolic 2000 panelon 03-28-2025 Albumin [Mass/Vol] 4.1 g/dL Normal 3.9-4.[address] [facility] Comment on above: Order Comment: Speci men Type: BLOOD SPECIMENOrdering Facility: [facility] Address: [address] [place] [address] Performed By: #### 2 4323-8, 2132-9 ####[facility] LABCLIA [id number] [place] [address] [place] ALP [Catalytic activity/Vol] 110 U/L Normal 34-123 [facility] Comment on above: Order Comment: Speci men Type: BLOOD SPECIMENOrdering Facility: [facility] Address: [address] [place] [address] Performed By: #### 2 4322-, 2132-05 ####[facility] LABCLIA [id number] [facility] [address] [address] [place] ALT [Catalytic activity/Vol] 9 U/L Normal 7-38 [facility] Comment on above: Order Comment: Speci men Type: BLOOD SPECIMENOrdering Facility: [facility] Address: [address] [place], [place] [address] Performed By: #### 2 4323-04, 2132-05 ####[facility] LABCLIA [id number] [facility] [address] [address] [place] Anion gap [Moles/Vol] 10 mmol/L Normal 8-15 [facility] Comment on above: Order Comment: Speci men Type: BLOOD SPECIMENOrdering Facility: [facility] Address: [address] [place], [place] [address] Performed By: #### 2 4323-04, 2132-05 ####[facility] LABCLIA [id number] [facility] [address] [address] [place] AST [Catalytic activity/Vol] 14 U/L Normal 13-35 [facility] Comment on above: Order Comment: Speci men Type: BLOOD SPECIMENOrdering Facility: [facility] Address: [address] [place], [place] [address] Performed By: #### 2 4323-04, 2132-05 ####[facility] LABCLIA [id number] [facility] [address] [place] [address] [place] Bilirubin [Mass/Vol] 0.4 mg/dL Normal 0.2-1.3 [facility] Comment on above: Order Comment: Speci men Type: BLOOD SPECIMENOrdering Facility: [facility] Address: [address] [place], [place] [address] Performed By: #### 2 43211-12, 2132-05 ####[facility] LABCLIA [id number] [address] [place] [address] [place] Calcium [Mass/Vol] 10.1 mg/dL Normal 8.5-10.[address] [facility] Comment on above: Order Comment: Speci men Type: BLOOD SPECIMENOrdering Facility: [facility] Address: [address] [place], [place] [address] Performed By: #### 2 4328, 2132-05 ####[facility] LABCLIA [id number] [place] [id number] [place] Chloride [Moles/Vol] 107 mmol/L Normal 98-107 [facility] Comment on above: Order Comment: Speci men Type: BLOOD SPECIMENOrdering Facility: [facility] Address: [address] [place] [address] Performed By: #### 2 4328, 2132-05 ####[facility] LABCLIA [id number] [place] [id number] [place] CO2 [Moles/Vol] 28 mmol/L Normal 22-30 [facility] Comment on above: Order Comment: Speci men Type: BLOOD SPECIMENOrdering Facility: [facility] Address: [address] [place] [address] Performed By: #### 2 43211-12, 2132-05 ####[facility] LABCLIA [id number] [place] [id number] [place] Creatinine [Mass/Vol] 1.00 mg/dL High 0.58-0.96 [facility] Comment on above: Order Comment: Speci men Type: BLOOD SPECIMENOrdering Facility: [facility] Address: [address] [place] [address] Performed By: #### 2 43211-12, 2132-05 ####[facility] LABCLIA [id number] [address] [address] [place] eGFRcr SerPlBld CKD-EPI 2020 61 mL/min/1.73m??? Normal >=60 [facility] Comment on above: Order Comment: Cesar piper Type: BLOOD SPECIMENOrdering Facility: [facility] Address: [address] [place] [address] Result Comment: Sweta mated Glomerular Filtration Rate (eGFR) is calculated using the 2020 CKD-EPI creatinine equation. This equation utilizes serum creatinine, sex, and age as parameters. The creatinine assay has traceable calibration to isotope dilution-mass spectrometry. Refer to KDIGO guidelines for clinical interpretation. In patients with unstable renal function, e.g. those with acute kidney injury, the eGFR may not accurately reflect actual GFR. Performed By: #### 2 4323-8, 2132-05 ####[facility] LABIA [id number] [place] [address] [place] Glucose [Mass/Vol] 107 mg/dL High 74-[address] [facility] Comment on above: Order Comment: Cesar piper Type: BLOOD SPECIMENOrdering Facility: [facility] Address: [address] [place] [address] Result Comment: The [place] Diabetes Association (ADA) provides guidance for cutoff values for fasting glucose and random glucose. The ADA defines fasting as no caloric intake for at least 8 hours. Fasting plasma glucose results between 100 to 125 mg/dL indicate increased risk for diabetes (prediabetes). Fasting plasma glucose results greater than or equal to 126 mg/dL meet the criteria for diagnosis of diabetes. In the absence of unequivocal hyperglycemia, results should be confirmed by repeat testing. In a patient with classic symptoms of hyperglycemia or hyperglycemic crisis, random plasma glucose results greater than or equal to 200 mg/dL meet the criteria for diagnosis of diabetes. Reference: Standards of Medical Care in Diabetes 2016, [place] Diabetes Association. Diabetes Care. 2016.39(Suppl 1). Performed By: #### 2 4323-8, 2132-05 ####[facility] LABIA [id number] [place] [id number] [place] Potassium [Moles/Vol] 4.6 mmol/L Normal 3.7-5.1 [facility] Comment on above: Order Comment: Cesar piper Type: BLOOD SPECIMENOrdering Facility: [facility] Address: [address] [place], [place] [address] Performed By: #### 2 4323-8, 2132-05 ####[facility] LABCLIA [id number] [address] [place] [address] [place] Protein [Mass/Vol] 6.5 g/dL Normal 6.3-8.[address] [facility] Comment on above: Order Comment: Speci men Type: BLOOD SPECIMENOrdering Facility: [facility] Address: [address] [place] [address] Performed By: #### 2 4328, 2132-05 ####[facility] LABCLIA [id number] [address], [facility] [place] Sodium [Moles/Vol] 145 mmol/L High 136-[address] [facility] Comment on above: Order Comment: Speci men Type: BLOOD SPECIMENOrdering Facility: [facility] Address: [address] [place] [address] Performed By: #### 2 432-8, 2132-05 ####[facility] LABIA [id number] [place] [id number] [place] Urea nitrogen [Mass/Vol] 18 mg/dL Normal 7-21 [facility] Comment on above: Order Comment: Speci men Type: BLOOD SPECIMENOrdering Facility: [facility] Address: [address] [place] [address] Performed By: #### 2 4323-8, 2132-05 ####[facility] LABCLIA [id number] [address] [place] [address] [place] Ferritin SerPl-mCncon 2024 Ferritin [Mass/Vol] 75.3 ng/mL Normal 14.7-205.1 [facility] Comment on above: Order Comment: Speci men Type: BLOOD SPECIMENOrdering Facility: [facility] Address: [address] [place] [address] Performed By: #### 2 276-4, 25743-0, 6-3, 20415-0 ####[facility] LABCLIA [id number] [place] [address] [place] HbA1c (Bld)on 03-28-2025 Average glucose Estimated from glycated hemoglobin (Bld) [Mass/Vol] 100 mg/dL Normal [facility] Comment on above: Order Comment: Specchristiano men Type: BLOOD SPECIMENOrdering Facility: [facility] Address: [address] [place] [address] Result Comment: eAG: (Estimated average glucose) is a calculated value from HgbA1c and is senior outside sales representative of the average blood glucose level in the last 2-3 month period. Performed By: #### 5 5454-3 ####[facility] LABIA [id number] [address] [place] HbA1c (Bld) [Mass fraction] 5.1 % Normal 4.3-5.6 [facility] Comment on above: Order Comment: Cesar piper Type: BLOOD SPECIMENOrdering Facility: [facility] Address: [address] [place] [address] Result Comment: [place] Diabetes Association guidelines indicate that patients with HgbA1c in the range 5.7-6.4% are at increased risk for development of diabetes, and intervention by lifestyle modification may be beneficial. HgbA1c greater or equal to 6.5% is considered diagnostic of diabetes. Performed By: #### 5 5454-3 ####[facility] LABCLIA [id number] [place] [id number] [facility] [employer] binding capaci ty panelon 03-28-2025 Iron [Mass/Vol] 64 ug/dL Normal 41-186 [facility] Comment on above: Order Comment: Cesar piper Type: BLOOD SPECIMENOrdering Facility: [facility] Address: [address] [place] [address] Performed By: #### 2 276-4, 37302-7, 3015-3, ####[facility] LABCLIA [id number] [place] [id number] [place] Iron binding capacity [Mass/Vol] 258 ug/dL Normal 232-386 [facility] Comment on above: Order Comment: Speci men Type: BLOOD SPECIMENOrdering Facility: [facility] Address: [address] [place] [address] Performed By: #### 2 276-4, 24735-4, 3016-3, ####[facility] [id number] [place] [id number] [place] Iron/TIBC [Molar ratio] 24.8 % Normal 15.0-57.[address] [facility] Comment on above: Order Comment: Speci men Type: BLOOD SPECIMENOrdering Facility: [facility] Address: [address] [place] [address] Performed By: #### 2 276-4, 65385-2, 3, ####[facility] [id number] [place] [id number] [place] Magnesium SerPl-mCncon 03-28 Magnesium [Mass/Vol] 2.0 mg/dL Normal 1.7-2.3 [facility] Comment on above: Order Comment: Speci men Type: BLOOD SPECIMENOrdering Facility: [facility] Address: [address] [place] [address] Performed By: #### 2 276-4, 12702-1, 6-3, ####[facility] [id number] [place] [id number] [place] TSH SerPl-aCncon 03-28-2025 TSH Qn 1.140 m[IU]/L Normal 0.270-4.20 0 [facility] Comment on above: Order Comment: Speci men Type: BLOOD SPECIMENOrdering Facility: [facility] Address: [address] [place] [address] Performed By: #### 2 276-4, 07097-5, 3016-3, 93089-7 ####[facility] [id number] [place] [address] [place] Vit B[facility] 07[facility]-2 025 Cobalamin (Vitamin B12) [Mass/Vol] 236 pg/mL Normal 232-1245 [facility] Comment on above: Order Comment: Speci men Type: BLOOD SPECIMENOrdering Facility: [facility] Address: [address] [place] [address] Performed By: #### 2 4323-8, 2132-9 ####[facility] [id number] [address] [place] CNCOon 03-22-2025 CNCO Letter Text Normal [facility] CNPNon 03-13-2025 CNPN Telephone (GASTPR) ----- MARCIA MASCORRO ([id number]) 1955 F CHT Date Time Provider Department 03/13/25 MARTY BEEBE [facility] During your visit today, we recorded the following information about you: Marty Beebe RN 03/13/2025 3:47 PM Signed Spoke with patient regarding the following information: Procedure is scheduled for ThursdayMarch 20 at 7:30am. Please arrive by 6:30am to check in at the Q3 endoscopy unit. Gastroenterology is located at desk Q31 in the [facility] ([facility]/[address] [place] [address]). Park in the [address] or use [facility] Parking. Visit [email or web address] for up-to-date visitor restrictions and mask requirements. Construction alerts and updates are available online at [email or web address] You will be receiving IV (intravenous) sedation. Your ride MUST be present upon arrival to and MUST remain on the [facility] for the duration of the procedure or your procedure will be cancelled. You MUST have a responsible person come with you and either drive you home or be with you while riding in public transportation (bus or taxi). You are NOT allowed to drive or leave the Endoscopy Center alone. Your procedure will be cancelled if your ride cannot be confirmed. Public transportation by yourself is not allowed. Most procedures take approximately 45-60 minutes. You and your responsible person must remain in the Endoscopy Center and be reachable by phone until you recover from your sedation. Most patients are discharged 1-2 hours after the procedure is completed. If you are taking Coumadin (Warfarin), Clopidogrel (Plavix), Aspirin, Ticlid, Aggrenox or other blood thinners, you must speak with your prescribing physician or the specialist performing the Endoscopy procedure at least 2 weeks PRIOR to your scheduled appointment. If you are taking Insulin?, long-acting Insulin (NPH), Lantus, Humalog, 70/30 Insulin, or any other medication to lower your blood sugar, contact your prescribing physician for instructions PRIOR to your procedure If you are taking medication for weight loss, contact your prescribing physician at least 1 week PRIOR to your procedure If you are taking medication for High Blood Pressure, Seizures, Asthma, Thyroid Disease, Irregular Heartbeat or taking Prednisone, you must take your medication on the morning of your procedure with a sip of water. If you take potent water pills, such as Lasix or Metolozone, do NOT take these the day before your procedure. Resume taking your water pill after the Endoscopy has been completed. If you take Iron pills, stop taking them 7 days PRIOR to the procedure. If you are taking non-steroidal anti-inflammatory drugs, such as Ibuprofen, (Motrin, Aleve), stop taking them 5 day PRIOR to the procedure. For all procedures including colonoscopy, EGD, EUS, ERCP, or enteroscopy, do NOT eat or drink ANYTHING after midnight unless otherwise indicated in your bowel prep instructions. If you have any questions, please call . If you need to cancel or reschedule your Endoscopy procedure, please call , option 1. Allergies As of Date: 03/13/2025 Noted Allergy Reaction CONTRAST DYE (IODINE) 12/20/2023 10 - Anaphylaxis Date Reviewed: 02/09/2025 Reviewed by: Marsha Murguia MA - Fully Assessed Prescriptions as of 03/13/2025 - DULoxetine (CYMBALTA) 40 mg cpDR Take 1 capsule by mouth once daily. - gabapentin (NEURONTIN) 400 mg capsule Take 1 capsule by mouth two times a day for 180 days. - albuterol-budesonide HFA (AIRSUPRA) 90-80 mcg/actuation inhaler Inhale 2 Puffs as instructed every 2 hours as needed for wheezing/shortness of breath. Do not take more than 12 inhalations in a 24 hour period. - Bisacodyl (DULCOLAX) 5 mg tab Take 1 tablet by mouth once daily as needed for constipation. - sucralfate (CARAFATE) 100 mg/mL suspension Take 10 mL by mouth four times daily. (take prior to meals and at bedtime) - promethazine (PHENERGAN) 25 mg tablet Take 1 tablet by mouth every 6 hours as needed. - spironolactone (ALDACTONE) 25 mg tablet Take 1 tablet by mouth once daily. - polyethylene glycol 3350 (MIRALAX) 17 gram/dose powder Take 17 g by mouth once daily. Dissolve dose in 4 - 8 ounces of liquid and take as directed. - omeprazole (PRILOSEC) 40 mg capsule Take 1 capsule by mouth once daily. - Nutritional Supplements (OPTIMENTAL) liqd Take 237 mL by mouth once daily. Okay with what insurance covers - Diaper,Brief, Adult,Disposable (DEPEND EASY FIT UNDERGARMENTS) Size Large pull up. Change depends once every 1-2 hrs. Dx incontinence (788.30) Prolapsed bladder (618.01) - atorvastatin (LIPITOR) 40 mg tablet Take 1 tablet by mouth daily at bedtime. - senna-docusate (SENNA PLUS) 8.6-50 (more content not included)... Normal [facility] Telephone (AGGENS4) ----- MARCIA MASCORRO ([id number]) 1955 F CHT Date Time Provider Department 03/13/25 RACHELLE MARCELO AGGENS4 During your visit today, we recorded the following information about you: Elizabeth Kelly 03/13/2025 8:26 AM Signed Lvm for pt to c/b and confirm the new date/time works. Will send [facility] message as well Allergies As of Date: 03/13/2025 Noted Allergy Reaction CONTRAST DYE (IODINE) 12/20/2023 10 - Anaphylaxis Date Reviewed: 02/09/2025 Reviewed by: Marsha Murguia MA - Fully Assessed Reason for Visit: Appointment [186] Cmt: New appt date/time Prescriptions as of 03/13/2025 - DULoxetine (CYMBALTA) 40 mg cpDR Take 1 capsule by mouth once daily. - gabapentin (NEURONTIN) 400 mg capsule Take 1 capsule by mouth two times a day for 180 days. - albuterol-budesonide HFA (AIRSUPRA) 90-80 mcg/actuation inhaler Inhale 2 Puffs as instructed every 2 hours as needed for wheezing/shortness of breath. Do not take more than 12 inhalations in a 24 hour period. - Bisacodyl (DULCOLAX) 5 mg tab Take 1 tablet by mouth once daily as needed for constipation. - sucralfate (CARAFATE) 100 mg/mL suspension Take 10 mL by mouth four times daily. (take prior to meals and at bedtime) - promethazine (PHENERGAN) 25 mg tablet Take 1 tablet by mouth every 6 hours as needed. - spironolactone (ALDACTONE) 25 mg tablet Take 1 tablet by mouth once daily. - polyethylene glycol 3350 (MIRALAX) 17 gram/dose powder Take 17 g by mouth once daily. Dissolve dose in 4 - 8 ounces of liquid and take as directed. - omeprazole (PRILOSEC) 40 mg capsule Take 1 capsule by mouth once daily. - Nutritional Supplements (OPTIMENTAL) liqd Take 237 mL by mouth once daily. Okay with what insurance covers - Diaper,Brief, Adult,Disposable (DEPEND EASY FIT UNDERGARMENTS) Size Large pull up. Change depends once every 1-2 hrs. Dx incontinence (788.30) Prolapsed bladder (618.01) - atorvastatin (LIPITOR) 40 mg tablet Take 1 tablet by mouth daily at bedtime. - senna-docusate (SENNA PLUS) 8.6-50 mg per tablet Take 1 tablet by mouth every morning AND 1 tablet daily at bedtime. - tiotropium bromide (SPIRIVA RESPIMAT) 2.5 mcg/actuation inhaler Inhale 2 Puffs as instructed once daily. Inhale two puffs once daily. - sodium phosphate-sodium bisphosphate (FLEET) enema 133 mL by RECTAL route as needed for constipation. - ondansetron (ZOFRAN) 4 mg tablet Take 1 tablet by mouth every 8 hours as needed for nausea/vomiting. - magnesium hydroxide (MILK OF MAGNESIA) 400 mg/5 mL suspension Take 30 mL by mouth once daily as needed for constipation. - lisinopril (ZESTRIL) 5 mg tablet Take 1 tablet by mouth once daily. - furosemide (LASIX) 20 mg tablet Take 1 tablet by mouth two times a day. - clopidogrel (PLAVIX) 75 mg tablet Take 1 tablet by mouth once daily. - Cholecalciferol, Vitamin D3, 125 mcg (5,000 unit) cap Take 1 capsule by mouth once daily. - carvedilol (COREG) 6.25 mg tablet Take 1 tablet by mouth two times a day with meals. - melatonin 10 mg tab Take 1 tablet by mouth at bedtime as needed for insomnia. - oxyCODONE myristate (XTAMPZA ER) 27 mg CSpT Take 1 capsule by mouth two times a day. - acetaminophen (TYLENOL) 325 mg tablet Take 650 mg by mouth every 4 hours as needed. - aluminum-magnesium hydroxide-simethicone (MAALOX,MYLANTA,MAG-AL PLUS) 200-200-20 mg/5 mL suspension Take 30 mL by mouth as needed. Problem List As Of Date 03/13/2025 Noted Resolved Essential hypertension, benign [I10] Lumbago [M54.50] 12/30/2005 Symptomatic menopausal or female climacteric st*12/30/2005 Anxiety [F41.9] Depression [F32.A] GERD (gastroesophageal reflux disease) [K21.9] Chronic pain [G89.29] COPD with exacerbation (HCC) [J44.1] 12/07/2023 Routine gynecological examination [Z01.419] 06/05/2014 09/23/2022 Well adult exam [Z00.00] 06/05/2014 09/23/2022 Stress incontinence, female [N39.3] 07/07/2014 Mixed hyperlipidemia [E78.2] 07/10/2014 Bladder prolapse, female, acquired [N81.10] 10/04/2014 Diverticulosis [K57.90] 03/20/2015 Smoker [F17.200] 12/28/2015 Epigastric pain [R10.13] 04/16/2016 04/16/2016 Colon cancer screening [Z12.11] 04/16/2016 04/16/2016 Retana's esophagus [K22.70] 08/21/2016 RUQ pain [R10.11] 08/21/2016 12/07/2023 Visual disturbances [H53.9] 08/21/2016 Near syncope [R55] [...] screening mammogram for breast ca*05/12/2018 09/23/2022 OAB (overact (more content not included)... Normal [facility] CNOVon 02-09-2025 CNOV Office Visit (GENBMI ) ----- MARCIA MASCORRO ([id number]) 1955 F CHT Date Time Provider Department 02/09/25 2:30 PM GRACE CHAUDHARY During your visit today, we recorded the following information about you: Pulse Blood pressure Weight Height 101/minute 96/60 81.4 kg 1.651 m Grace Chaudhary MD, PhD 02/09/2025 4:31 PM Signed STAFF NOTE I have seen and evaluated the patient and discussed the case with the resident physician. I agree with the assessment and plan as documented in the resident?s note. 69 F with large type III paraesophageal hernia. She has dysphagia as well and has had previous dilations. She will need EGD, esophageal manometry, and cardiac optimization prior to repair. Grace Chaudhary MD PhD [facility] pie crust mixer CCLCM of [facility] Bariatric, Foregut, and Flexible Endoscopic Surgery [facility] [address] [place] [address] GENERAL SURGERY INITIAL CONSULT NOTE SERVICE DATE: 02/09/2025 SERVICE TIME: 4:01 PM REASON FOR CONSULT: Hiatal Hernia REQUESTING PHYSICIAN: Self PRIMARY CARE PHYSICIAN: Gabriel Galvan MD Subjective Ms. Mascorro is a 69 year old female with PMHx of CAD, CHF (EF 20%), HTN, GERD, COPD, Diabetes, Retana's esophagus, who presents with abdominal pain, nausea and weight loss. Last seen with Dr. Balbuena in 06/2024 for hiatal hernia. Was recommended to obtain EGD, Manometry, and cardiac optimization, but was lost to follow-up. She returns to clinic today seeking definitive management of her symptoms. She describes: Food gets stuck in throat Nausea Hungry, but can't eat much due to the pain 18 pound weight loss over past couple Reports unbearable pain Reports being on 2-3L of O2 over the past few months Not receiving adequate care at her assisted care facility Son reports she has become more dependent from being sick all the time She expresses distress and being in constant pain. On plavix for history of blood clots 1 PPD smoker. Has COPD, on 2-3 L at home Abdominal surgical history: Lap cholecystectomy, total abdominal hysterectomy. FUNCTIONAL STATUS: Partially dependent PAST MEDICAL HISTORY Diagnosis Date Abdominal aortic aneurysm JOVANY (acute kidney injury) Anaphylactic reaction due to contrast Anxiety Retana's esophagus with high grade dysplasia 06/24/2023 biopsy interpretation: prominent low-grade dysphasia AND focal superficial high-grad dysplasia Retana's esophagus without dysplasia 09/13/2019 Bile leak, postoperative CAD (coronary artery disease) CHF (congestive heart failure) (HCC) Chronic back pain Chronic pain low back, sees pain MGT: Dr. Nayak Compression fracture of thoracic vertebra (HCC) COPD (chronic obstructive pulmonary disease) (HCC) Depression Diabetes mellitus (HCC) Diverticulosis Essential hypertension, benign Sees Dr. Best GERD (gastroesophageal reflux disease) Hiatal hernia 06/24/2023 Hyperthyroidism Incontinence 07/07/2014 LV (left ventricular) mural thrombus 12/01/2023 Mixed hyperlipidemia Obesity Opioid dependence (HCC) 01/15/2020 In 180 as of 01/2020 per ER report from [facility]. Palpitation Primary cardiomyopathy (HCC) Pulmonary emphysema (HCC) Schatzki's ring 06/24/2023 SVT (supraventricular tachycardia) (HCC) Tremor PAST SURGICAL HISTORY Procedure Laterality Date 2D ECHO (EXEP) 01/19/2017 EF=55%, mild LVH, LA enlargement, TX and TI, Diastolic dysfunction. 2D ECHO (EXEP) 12/18/2017 EF=55%, mild LVH, mild diastolic dysfunct, COLONOSCOPY SCREENING 04/16/2016 mac. repeat 10 yrs EGD W/O [facility] SPEC VARICIES INJ 04/16/2016 v EGD WITH BIOPSY(S) 07/28/2023 dilation of pylorus; Dr. Martinez ERCP DUCT STENT PLACEMENT 07/28/2023 Dr. Martinez F EGD WITH DILATATION 06/24/2023 Retana's-prominent low-grade dysphasia AND focal superficial high-grad dysplasia; hiatal hernia; Dr. Martinez LAPAROSCOPIC CHOLECYSTECTOMY 12/09/2023 Dr. Tejada TOTAL ABDOMINAL HYSTERECT W/WO RMVL TUBE OVARY FAMILY HISTORY Problem Relation Age of Onset Breast Cancer Sister Heart Mother Diabetes Mother Stroke Mother Hypertension Mother Heart Maternal Grandmother Heart Brother Social History Tobacco Use Smoking status: Every Day Current packs/day: 0.00 Average packs/day: 1 pack/day for 40.0 years (40.0 ttl pk-yrs) Types: Cigarettes Start date: 09/21/1983 Last attempt to quit: 09/21/2023 Years since quittin.3 Smokeless tobacco: Never Tobacco comments: 7 cigarette. Quit in Middle of September 2023. Restarted February 2024 Vaping Use Vaping status: Never Used Substance Use Topics Alcohol use: No Drug use: No (Not in a hospital admission) No current facility-administered medications for this visit. Allergies As of Date: 02/09/2025 Allergen Noted Reaction CONTRAST DYE [IODINE] 12/20/2023 Anaphylaxis Fully Assessed 02/09/2025 COMPLETE REVIEW OF SYSTE (more content not included)... Normal [facility] HISTORY PHYSICALon HISTORY PHYSICAL HNO ID: [id number] Author: GRACE CHAUDHARY MD, PhD Service: ? Author Type: Physician Type: H&P Filed: 02/09/2025 16:31 Note Text: STAFF NOTE I have seen and evaluated the patient and discussed the case with the resident physician. I agree with the assessment and plan as documented in the resident?s note. 69 F with large type III paraesophageal hernia. She has dysphagia as well and has had previous dilations. She will need EGD, esophageal manometry, and cardiac optimization prior to repair. Grace Chaudhary MD PhD [facility] pie crust mixer CCLCM of [facility] Bariatric, Foregut, and Flexible Endoscopic Surgery [address] [place] [address] GENERAL SURGERY INITIAL CONSULT NOTE SERVICE DATE: 02/09/2025 SERVICE TIME: 4:01 PM REASON FOR CONSULT: Hiatal Hernia REQUESTING PHYSICIAN: Self PRIMARY CARE PHYSICIAN: Gabriel Galvan MD Subjective Ms. Mascorro is a 69 year old female with PMHx of CAD, CHF (EF 20%), HTN, GERD, COPD, Diabetes, Retana's esophagus, who presents with abdominal pain, nausea and weight loss. Last seen with Dr. Balbuena in 06/2024 for hiatal hernia. Was recommended to obtain EGD, Manometry, and cardiac optimization, but was lost to follow-up. She returns to clinic today seeking definitive management of her symptoms. She describes: Food gets stuck in throat Nausea Hungry, but can't eat much due to the pain 18 pound weight loss over past couple Reports unbearable pain Reports being on 2-3L of O2 over the past few months Not receiving adequate care at her assisted care facility Son reports she has become more dependent from being sick all the time She expresses distress and being in constant pain. On plavix for history of blood clots 1 PPD smoker. Has COPD, on 2-3 L at home Abdominal surgical history: Lap cholecystectomy, total abdominal hysterectomy. FUNCTIONAL STATUS: Partially dependent PAST MEDICAL HISTORY Diagnosis Date Abdominal aortic aneurysm JOVANY (acute kidney injury) Anaphylactic reaction due to contrast Anxiety Retana's esophagus with high grade dysplasia 06/24/2023 biopsy interpretation: prominent low-grade dysphasia AND focal superficial high-grad dysplasia Retana's esophagus without dysplasia 09/13/2019 Bile leak, postoperative CAD (coronary artery disease) CHF (congestive heart failure) (HCC) Chronic back pain Chronic pain low back, sees pain MGT: Dr. Nayak Compression fracture of thoracic vertebra (HCC) COPD (chronic obstructive pulmonary disease) (HCC) Depression Diabetes mellitus (HCC) Diverticulosis Essential hypertension, benign Sees Dr. Best GERD (gastroesophageal reflux disease) Hiatal hernia 06/24/2023 Hyperthyroidism Incontinence 07/07/2014 LV (left ventricular) mural thrombus 12/01/2023 Mixed hyperlipidemia Obesity Opioid dependence (HCC) 01/15/2020 In 180 as of 01/2020 per ER report from [facility]. Palpitation Primary cardiomyopathy (HCC) Pulmonary emphysema (HCC) Schatzki's ring 06/24/2023 SVT (supraventricular tachycardia) (HCC) Tremor PAST SURGICAL HISTORY Procedure Laterality Date 2D ECHO (EXEP) 01/19/2017 EF=55%, mild LVH, LA enlargement, TX and TI, Diastolic dysfunction. 2D ECHO (EXEP) 12/18/2017 EF=55%, mild LVH, mild diastolic dysfunct, COLONOSCOPY SCREENING 04/16/2016 mac. repeat 10 yrs EGD W/O [facility] SPEC VARICIES INJ 04/16/2016 v EGD WITH BIOPSY(S) 07/28/2023 dilation of pylorus; Dr. Martinez ERCP DUCT STENT PLACEMENT 07/28/2023 Dr. Martinez F EGD WITH DILATATION 06/24/2023 Retana's-prominent low-grade dysphasia AND focal superficial high-grad dysplasia; hiatal hernia; Dr. Martinez LAPAROSCOPIC CHOLECYSTECTOMY 12/09/2023 Dr. Tejada TOTAL ABDOMINAL HYSTERECT W/WO RMVL TUBE OVARY FAMILY HISTORY Problem Relation Age of Onset Breast Cancer Sister Heart Mother Diabetes Mother Stroke Mother Hypertension Mother Heart Maternal Grandmother Heart Brother Social History Tobacco Use Smoking status: Every Day Current packs/day: 0.00 Average packs/day: 1 pack/day for 40.0 years (40.0 ttl pk-yrs) Types: Cigarettes Start date: 09/21/1983 Last attempt to quit: 09/21/2023 Years since quittin.3 Smokeless tobacco: Never Tobacco comments: 7 cigarette. Quit in Middle of September 2023. Restarted February 2024 Vaping Use Vaping status: Never Used Substance Use Topics Alcohol use: No Drug use: No (Not in a hospital admission) No current facility-administered medications for this visit. Allergies As of Date: 02/09/2025 Allergen Noted Reaction CONTRAST DYE [IODINE] 12/20/2023 Anaphylaxis Fully Assessed 02/09/2025 COMPLETE REVIEW OF SYSTEMS: RESPIRATORY: COPD CARDIOVASCULAR: Echo from 2022 revealed ejection fraction of 20% Objective PHYSICAL EXAM: Physical Exam Performed: GENERAL: Alert, no distress, cooperative LUNGS: Non labored breathing on room air CARDIAC: Warm and well perfused ABDOMEN (more content not included)... Normal [facility] [id number] 01-26-2025 [facility]. COMMENT Normal . [facility] Comment on above: Order Comment: 1 Y Result Comment: Test Ordered: [id number] Compliance Drug Analysis, Ur Specimen Comment: ToxAssure, ToxAssure FLEX or MAT drug testin Specimen Comment: -Technical component - Data analysis performed at Specimen Comment: [facility] [place], [facility] Specimen Comment: [id number]. [phone] Chopper Operator Issa Gonzales MD. Summary Report (Summary) FINAL MX Reference Range: . ======= TOXASSURE COMP DRUG ANALYSIS,UR ======= Test Result Flag Units Drug Present Lorazepam >1183 ng/mg creat Source of lorazepam is a scheduled prescription medication. Hydrocodone 1964 ng/mg creat Hydromorphone 286 ng/mg creat Dihydrocodeine 191 ng/mg creat Norhydrocodone 1450 ng/mg creat Sources of hydrocodone include scheduled prescription medications. Hydromorphone, dihydrocodeine and norhydrocodone are expected metabolites of hydrocodone. Hydromorphone and dihydrocodeine are also available as scheduled prescription medications. Oxycodone 5527 ng/mg creat Oxymorphone 2088 ng/mg creat Noroxycodone >5917 ng/mg creat Noroxymorphone 721 ng/mg creat Sources of oxycodone are scheduled prescription medications. Oxymorphone, noroxycodone, and noroxymorphone are expected metabolites of oxycodone. Oxymorphone is also available as a scheduled prescription medication. Gabapentin PRESENT Acetaminophen PRESENT Promethazine PRESENT Dextromethorphan PRESENT Dextrorphan/Levorphanol PRESENT Dextrorphan is an expected metabolite of dextromethorphan, an vlll-ilr-qmrfihp or prescription cough suppressant. Dextrorphan cannot be distinguished from the scheduled prescription medication levorphanol by the method used for analysis. ======= Test Result Flag Units Ref Range Creatinine 169 mg/dL >=20 ======= Declared Medications: Medication list was not provided. ======= For clinical consultation, please call . ======= Performed at: [facility] [address] [place] [id number] Chopper Operator: Gisela Kim PhrDE, Phone: [phone] Performed at: [facility] [id number] Chopper Operator: Garett Patrick PhD, Phone: [phone] Performed By: #### L 500.2500, L501.2812, L100.0100 #### [facility] [address] [place], [place], [id number] Amphetamine detection with 1 000 ng/mL as cutoffOrdered By: Alok Forrest on 01-18-2025 Amphetamines Screen method >1000 ng/mL Ql (U) Negative < 200 ng/mL [facility] CNPNon 01-18-2025 CNPN Telephone (GENBMI) ----- MARCIA MASCORRO ([id number]) 1955 F T Date Time Provider Department 01/18/25 HELEN KEARNEY During your visit today, we recorded the following information about you: Helen Kearney, RN 01/18/2025 10:49 AM Signed [facility] SPECIALTY CARE COORDINATION TELEPHONE ENCOUNTER Pt very sickly and high risk pt referred to Dr Mcduffie for a HH repair by local GI Dr Tejada. Unable to reach pt but large HH seen on a CT scan from 03/2024. Will wait for pt or family to return call to obtain symptoms and medical history. LVM and contact info. Allergies As of Date: 01/18/2025 Noted Allergy Reaction CONTRAST DYE (IODINE) 12/20/2023 10 - Anaphylaxis Date Reviewed: 01/03/2025 Reviewed by: Lyndsey Acevedo APRN.ALMOND ROASTER - Fully Assessed Prescriptions as of 01/18/2025 - DULoxetine (CYMBALTA) 40 mg cpDR Take 1 capsule by mouth once daily. - gabapentin (NEURONTIN) 400 mg capsule Take 1 capsule by mouth two times a day for 180 days. - albuterol-budesonide HFA (AIRSUPRA) 90-80 mcg/actuation inhaler Inhale 2 Puffs as instructed every 2 hours as needed for wheezing/shortness of breath. Do not take more than 12 inhalations in a 24 hour period. - Bisacodyl (DULCOLAX) 5 mg tab Take 1 tablet by mouth once daily as needed for constipation. - sucralfate (CARAFATE) 100 mg/mL suspension Take 10 mL by mouth four times daily. (take prior to meals and at bedtime) - promethazine (PHENERGAN) 25 mg tablet Take 1 tablet by mouth every 6 hours as needed. - spironolactone (ALDACTONE) 25 mg tablet Take 1 tablet by mouth once daily. - polyethylene glycol 3350 (MIRALAX) 17 gram/dose powder Take 17 g by mouth once daily. Dissolve dose in 4 - 8 ounces of liquid and take as directed. - omeprazole (PRILOSEC) 40 mg capsule Take 1 capsule by mouth once daily. - Nutritional Supplements (OPTIMENTAL) liqd Take 237 mL by mouth once daily. Okay with what insurance covers - Diaper,Brief, Adult,Disposable (DEPEND EASY FIT UNDERGARMENTS) Size Large pull up. Change depends once every 1-2 hrs. Dx incontinence (788.30) Prolapsed bladder (618.01) - atorvastatin (LIPITOR) 40 mg tablet Take 1 tablet by mouth daily at bedtime. - senna-docusate (SENNA PLUS) 8.6-50 mg per tablet Take 1 tablet by mouth every morning AND 1 tablet daily at bedtime. - tiotropium bromide (SPIRIVA RESPIMAT) 2.5 mcg/actuation inhaler Inhale 2 Puffs as instructed once daily. Inhale two puffs once daily. - sodium phosphate-sodium bisphosphate (FLEET) enema 133 mL by RECTAL route as needed for constipation. - ondansetron (ZOFRAN) 4 mg tablet Take 1 tablet by mouth every 8 hours as needed for nausea/vomiting. - magnesium hydroxide (MILK OF MAGNESIA) 400 mg/5 mL suspension Take 30 mL by mouth once daily as needed for constipation. - lisinopril (ZESTRIL) 5 mg tablet Take 1 tablet by mouth once daily. - furosemide (LASIX) 20 mg tablet Take 1 tablet by mouth two times a day. - clopidogrel (PLAVIX) 75 mg tablet Take 1 tablet by mouth once daily. - Cholecalciferol, Vitamin D3, 125 mcg (5,000 unit) cap Take 1 capsule by mouth once daily. - carvedilol (COREG) 6.25 mg tablet Take 1 tablet by mouth two times a day with meals. - melatonin 10 mg tab Take 1 tablet by mouth at bedtime as needed for insomnia. - oxyCODONE myristate (XTAMPZA ER) 27 mg CSpT Take 1 capsule by mouth two times a day. - acetaminophen (TYLENOL) 325 mg tablet Take 650 mg by mouth every 4 hours as needed. - aluminum-magnesium hydroxide-simethicone (MAALOX,MYLANTA,MAG-AL PLUS) 200-200-20 mg/5 mL suspension Take 30 mL by mouth as needed. Problem List As Of Date 01/18/2025 Noted Resolved Essential hypertension, benign [I10] Lumbago [M54.50] 12/30/2005 Symptomatic menopausal or female climacteric st*12/30/2005 Anxiety [F41.9] Depression [F32.A] GERD (gastroesophageal reflux disease) [K21.9] Chronic pain [G89.29] COPD with exacerbation (HCC) [J44.1] 12/07/2023 Routine gynecological examination [Z01.419] 06/05/2014 09/23/2022 Well adult exam [Z00.00] 06/05/2014 09/23/2022 Stress incontinence, female [N39.3] 07/07/2014 Mixed hyperlipidemia [E78.2] 07/10/2014 Bladder prolapse, female, acquired [N81.10] 10/04/2014 Diverticulosis [K57.90] 03/20/2015 Smoker [F17.200] 12/28/2015 Epigastric pain [R10.13] 04/16/2016 04/16/2016 Colon cancer screening [Z12.11] 04/16/2016 04/16/2016 Retana's esophagus [K22.70] 08/21/2016 RUQ pain [R10.11] 08/21/2016 12/07/2023 Visual disturbances [H53.9] 08/21/2016 Near syncope [R55] 08/21/2016 09/23/2022 Heart palpitations [R00.2] 09/29/2016 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 [facility] MARCIA MASCORRO ([id number]) 1955 F CHT Date Time Provider Department 01/18/25 SCOT MCDUFFIE During your visit today, we recorded the following information about you: Penny Medina 01/18/2025 9:13 AM Signed [phone] Chloe called from the facility where the patient resides. Chloe is trying to get patient in for a hiatal hernia referral from Dr. Tejada under sctive request. Penny Allergies As of Date: 01/18/2025 Noted Allergy Reaction CONTRAST DYE (IODINE) 12/20/2023 10 - Anaphylaxis Date Reviewed: 01/03/2025 Reviewed by: Lyndsey Acevedo APRN.ALMOND ROASTER - Fully Assessed Prescriptions as of 01/18/2025 - DULoxetine (CYMBALTA) 40 mg cpDR Take 1 capsule by mouth once daily. - gabapentin (NEURONTIN) 400 mg capsule Take 1 capsule by mouth two times a day for 180 days. - albuterol-budesonide HFA (AIRSUPRA) 90-80 mcg/actuation inhaler Inhale 2 Puffs as instructed every 2 hours as needed for wheezing/shortness of breath. Do not take more than 12 inhalations in a 24 hour period. - Bisacodyl (DULCOLAX) 5 mg tab Take 1 tablet by mouth once daily as needed for constipation. - sucralfate (CARAFATE) 100 mg/mL suspension Take 10 mL by mouth four times daily. (take prior to meals and at bedtime) - promethazine (PHENERGAN) 25 mg tablet Take 1 tablet by mouth every 6 hours as needed. - spironolactone (ALDACTONE) 25 mg tablet Take 1 tablet by mouth once daily. - polyethylene glycol 3350 (MIRALAX) 17 gram/dose powder Take 17 g by mouth once daily. Dissolve dose in 4 - 8 ounces of liquid and take as directed. - omeprazole (PRILOSEC) 40 mg capsule Take 1 capsule by mouth once daily. - Nutritional Supplements (OPTIMENTAL) liqd Take 237 mL by mouth once daily. Okay with what insurance covers - Diaper,Brief, Adult,Disposable (DEPEND EASY FIT UNDERGARMENTS) Size Large pull up. Change depends once every 1-2 hrs. Dx incontinence (788.30) Prolapsed bladder (618.01) - atorvastatin (LIPITOR) 40 mg tablet Take 1 tablet by mouth daily at bedtime. - senna-docusate (SENNA PLUS) 8.6-50 mg per tablet Take 1 tablet by mouth every morning AND 1 tablet daily at bedtime. - tiotropium bromide (SPIRIVA RESPIMAT) 2.5 mcg/actuation inhaler Inhale 2 Puffs as instructed once daily. Inhale two puffs once daily. - sodium phosphate-sodium bisphosphate (FLEET) enema 133 mL by RECTAL route as needed for constipation. - ondansetron (ZOFRAN) 4 mg tablet Take 1 tablet by mouth every 8 hours as needed for nausea/vomiting. - magnesium hydroxide (MILK OF MAGNESIA) 400 mg/5 mL suspension Take 30 mL by mouth once daily as needed for constipation. - lisinopril (ZESTRIL) 5 mg tablet Take 1 tablet by mouth once daily. - furosemide (LASIX) 20 mg tablet Take 1 tablet by mouth two times a day. - clopidogrel (PLAVIX) 75 mg tablet Take 1 tablet by mouth once daily. - Cholecalciferol, Vitamin D3, 125 mcg (5,000 unit) cap Take 1 capsule by mouth once daily. - carvedilol (COREG) 6.25 mg tablet Take 1 tablet by mouth two times a day with meals. - melatonin 10 mg tab Take 1 tablet by mouth at bedtime as needed for insomnia. - oxyCODONE myristate (XTAMPZA ER) 27 mg CSpT Take 1 capsule by mouth two times a day. - acetaminophen (TYLENOL) 325 mg tablet Take 650 mg by mouth every 4 hours as needed. - aluminum-magnesium hydroxide-simethicone (MAALOX,MYLANTA,MAG-AL PLUS) 200-200-20 mg/5 mL suspension Take 30 mL by mouth as needed. Problem List As Of Date 01/18/2025 Noted Resolved Essential hypertension, benign [I10] Lumbago [M54.50] 12/30/2005 Symptomatic menopausal or female climacteric st*12/30/2005 Anxiety [F41.9] Depression [F32.A] GERD (gastroesophageal reflux disease) [K21.9] Chronic pain [G89.29] COPD with exacerbation (HCC) [J44.1] 12/07/2023 Routine gynecological examination [Z01.419] 06/05/2014 09/23/2022 Well adult exam [Z00.00] 06/05/2014 09/23/2022 Stress incontinence, female [N39.3] 07/07/2014 Mixed hyperlipidemia [E78.2] 07/10/2014 Bladder prolapse, female, acquired [N81.10] 10/04/2014 Diverticulosis [K57.90] 03/20/2015 Smoker [F17.200] 12/28/2015 Epigastric pain [R10.13] 04/16/2016 04/16/2016 Colon cancer screening [Z12.11] 04/16/2016 04/16/2016 Retana's esophagus [K22.70] 08/21/2016 RUQ pain [R10.11] 08/21/2016 12/07/2023 Visual disturbances [H53.9] 08/21/2016 Near syncope [R55] 08/21/2016 09/23/2022 Heart palpitations [R00.2] 09/29/2016 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 [facility] MARCIA MASCORRO ([id number]) 1955 F T Date Time Provider Department 01/18/25 HELEN KEARNEY [facility] During your visit today, we recorded the following information about you: Helen Kearney, RN 01/18/2025 1:03 PM Signed [facility] COORDINATION TELEPHONE ENCOUNTER Chief complaint AND duration symptomatic HH. Pt was referred to Dr Mcduffie, but is feeling very sick.. sooner opening with Dr Chaudhary next week. Pt agreed. Nursing assessment (subjective/objective) . Pt with moderate to large HH and causing her several symptom such as abd pain, nausea and unable to eat Pt was seen last year for the same reason but does not remember Complex medical history Has not had recent testing GI is Dr Friend who performed her last endoscopy will contact that office. CT 03/2024 was done and showed large HH Recommendation: Request sent to scheduling for an appt with Dr Chaudhary Allergies As of Date: 01/18/2025 Noted Allergy Reaction CONTRAST DYE (IODINE) 12/20/2023 10 - Anaphylaxis Date Reviewed: 01/03/2025 Reviewed by: Lyndsey Acevedo APRN.ALMOND ROASTER - Fully Assessed Prescriptions as of 01/18/2025 - DULoxetine (CYMBALTA) 40 mg cpDR Take 1 capsule by mouth once daily. - gabapentin (NEURONTIN) 400 mg capsule Take 1 capsule by mouth two times a day for 180 days. - albuterol-budesonide HFA (AIRSUPRA) 90-80 mcg/actuation inhaler Inhale 2 Puffs as instructed every 2 hours as needed for wheezing/shortness of breath. Do not take more than 12 inhalations in a 24 hour period. - Bisacodyl (DULCOLAX) 5 mg tab Take 1 tablet by mouth once daily as needed for constipation. - sucralfate (CARAFATE) 100 mg/mL suspension Take 10 mL by mouth four times daily. (take prior to meals and at bedtime) - promethazine (PHENERGAN) 25 mg tablet Take 1 tablet by mouth every 6 hours as needed. - spironolactone (ALDACTONE) 25 mg tablet Take 1 tablet by mouth once daily. - polyethylene glycol 3350 (MIRALAX) 17 gram/dose powder Take 17 g by mouth once daily. Dissolve dose in 4 - 8 ounces of liquid and take as directed. - omeprazole (PRILOSEC) 40 mg capsule Take 1 capsule by mouth once daily. - Nutritional Supplements (OPTIMENTAL) liqd Take 237 mL by mouth once daily. Okay with what insurance covers - Diaper,Brief, Adult,Disposable (DEPEND EASY FIT UNDERGARMENTS) Size Large pull up. Change depends once every 1-2 hrs. Dx incontinence (788.30) Prolapsed bladder (618.01) - atorvastatin (LIPITOR) 40 mg tablet Take 1 tablet by mouth daily at bedtime. - senna-docusate (SENNA PLUS) 8.6-50 mg per tablet Take 1 tablet by mouth every morning AND 1 tablet daily at bedtime. - tiotropium bromide (SPIRIVA RESPIMAT) 2.5 mcg/actuation inhaler Inhale 2 Puffs as instructed once daily. Inhale two puffs once daily. - sodium phosphate-sodium bisphosphate (FLEET) enema 133 mL by RECTAL route as needed for constipation. - ondansetron (ZOFRAN) 4 mg tablet Take 1 tablet by mouth every 8 hours as needed for nausea/vomiting. - magnesium hydroxide (MILK OF MAGNESIA) 400 mg/5 mL suspension Take 30 mL by mouth once daily as needed for constipation. - lisinopril (ZESTRIL) 5 mg tablet Take 1 tablet by mouth once daily. - furosemide (LASIX) 20 mg tablet Take 1 tablet by mouth two times a day. - clopidogrel (PLAVIX) 75 mg tablet Take 1 tablet by mouth once daily. - Cholecalciferol, Vitamin D3, 125 mcg (5,000 unit) cap Take 1 capsule by mouth once daily. - carvedilol (COREG) 6.25 mg tablet Take 1 tablet by mouth two times a day with meals. - melatonin 10 mg tab Take 1 tablet by mouth at bedtime as needed for insomnia. - oxyCODONE myristate (XTAMPZA ER) 27 mg CSpT Take 1 capsule by mouth two times a day. - acetaminophen (TYLENOL) 325 mg tablet Take 650 mg by mouth every 4 hours as needed. - aluminum-magnesium hydroxide-simethicone (MAALOX,MYLANTA,MAG-AL PLUS) 200-200-20 mg/5 mL suspension Take 30 mL by mouth as needed. Problem List As Of Date 01/18/2025 Noted Resolved Essential hypertension, benign [I10] Lumbago [M54.50] 12/30/2005 Symptomatic menopausal or female climacteric st*12/30/2005 Anxiety [F41.9] Depression [F32.A] GERD (gastroesophageal reflux disease) [K21.9] Chronic pain [G89.29] COPD with exacerbation (HCC) [J44.1] 12/07/2023 Routine gynecological examination [Z01.419] 06/05/2014 09/23/2022 Well adult exam [Z00.00] 06/05/2014 09/23/2022 Stress incontinence, female [N39.3] 07/07/2014 Mixed hyperlipidemia [E78.2] 07/10/2014 Bladder prolapse, female, acquired [N81.10] 10/04/2014 Diverticulosis [K57.90] 03/20/2015 Smoker [F17.200] 12/28/2015 Epigastric pain [R10.13] 04/16/2016 04/16/2016 Colon cancer screening [Z12.11] 04/16/2016 04/16/2016 Ertana's esophagus [K22.70] 08/21/2016 RUQ pain [R10.11] 08/21/2016 12/07/2023 Visual disturbances [H53.9] 08/21/2016 Near syncope [R55] 08/21/201609/07 (more content not included)... Normal [facility] No Panel InformationOrdered By: dario Forrest on 01-18-2025 Positive < 100 ng/mL [facility] Negative < 200 ng/mL [facility] Screening urine fentanyl gloria surementOrdered By: Alok Forrest on 01-18-2025 fentaNYL Screen Ql (U) Negative [facility] Urine Drug Screen ([facility]IST[facility])on 01-18-2025 AMPHETAMINES Negative Normal <1000 ng/mL [facility] Comment on above: Order Comment: 1 Y Performed By: #### L 500.2500, L501.5425, L100.0100 #### [facility] [address] [place], [address] BARBITIURATES Negative Normal < 200 ng/mL [facility] Comment on above: Order Comment: 1 Y Performed By: #### L 500.2500, L501.5425, L100.0100 #### [facility] [address] [place], [address] BENZODIAZIPINE Positive Normal < 200 ng/mL [facility] Comment on above: Order Comment: 1 Y Result Comment: If c onfirmation testing is needed, a separate order will be required to send out testing to the reference laboratory. Performed By: #### L 500.2500, L501.5425, L100.0100 #### [facility] [address] [place], [address] BUP Ur Drug Scr Negative Normal < 200 ng/mL [facility] Comment on above: Order Comment: 1 Y Performed By: #### L 500.2500, L501.5425, L100.0100 #### [facility] [address] [place], [address] COCAINE Negative Normal < 300 ng/mL [facility] Comment on above: Order Comment: 1 Y Performed By: #### L 500.2500, L501.5425, L100.0100 #### [facility] [address] [place], [address] Fentanyl Negative Normal [facility] Comment on above: Order Comment: 1 Y Performed By: #### L 500.2500, L501.5425, L100.0100 #### [facility] [address] [place], [address] METHADONE Negative Normal < 300 ng/mL [facility] Comment on above: Order Comment: 1 Y Performed By: #### L 500.2500, L501.5425, L100.0100 #### [facility] [address] [place], [address] OPIATES Positive Normal < 300 ng/mL [facility] Comment on above: Order Comment: 1 Y Result Comment: If c onfirmation testing is needed, a separate order will be required to send out testing to the reference laboratory. Performed By: #### L 500.2500, L501.5425, L100.0100 #### [facility] [address] [place], [address] OXYCODONE Positive Normal < 100 ng/mL [facility] Comment on above: Order Comment: 1 Y Result Comment: If c onfirmation testing is needed, a separate order will be required to send out testing to the reference laboratory. Performed By: #### L 500.2500, L501.5425, L100.0100 #### [facility] [address] [place], [address] PCP Negative Normal < 25 ng/mL [facility] Comment on above: Order Comment: 1 Y Performed By: #### L 500.2500, L501.5425, L100.0100 #### [facility] [address] [place], [place], [address] THC Negative Normal < 50 ng/mL [facility] Comment on above: Order Comment: 1 Y Performed By: #### L 500.2500, L501.5425, L100.0100 #### [facility] [address] [place], [address] Urine phencyclidine (PCP) de tectionOrdered By: Alok Forrest on 01-18-2025 Phencyclidine Ql (U) Negative < 25 ng/mL [facility] CNPNon 01-17-2025 [facility] Telephone (INTMWS) ----- MARCIA MASCORRO ([id number]) 1955 F CHT Date Time Provider Department 01/17/25 GABRIEL GALVAN INTWS During your visit today, we recorded the following information about you: Avelina Blount LPN 01/17/2025 10:00 AM Signed Daughter contacted to see if we could get patient rescheduled for a hospital f/u but she states that she is not doing very well right now and that Dr. Malik is trying to get her worked in so doesn't want to schedule anything until that has been scheduled. Allergies As of Date: 01/17/2025 Noted Allergy Reaction CONTRAST DYE (IODINE) 12/20/2023 10 - Anaphylaxis Date Reviewed: 01/03/2025 Reviewed by: Lyndsey Acevedo APRN.ALMOND ROASTER - Fully Assessed Reason for Visit: Appointment [186] Cmt: Hospital f/u Prescriptions as of 01/17/2025 - DULoxetine (CYMBALTA) 40 mg cpDR Take 1 capsule by mouth once daily. - gabapentin (NEURONTIN) 400 mg capsule Take 1 capsule by mouth two times a day for 180 days. - albuterol-budesonide HFA (AIRSUPRA) 90-80 mcg/actuation inhaler Inhale 2 Puffs as instructed every 2 hours as needed for wheezing/shortness of breath. Do not take more than 12 inhalations in a 24 hour period. - Bisacodyl (DULCOLAX) 5 mg tab Take 1 tablet by mouth once daily as needed for constipation. - sucralfate (CARAFATE) 100 mg/mL suspension Take 10 mL by mouth four times daily. (take prior to meals and at bedtime) - promethazine (PHENERGAN) 25 mg tablet Take 1 tablet by mouth every 6 hours as needed. - spironolactone (ALDACTONE) 25 mg tablet Take 1 tablet by mouth once daily. - polyethylene glycol 3350 (MIRALAX) 17 gram/dose powder Take 17 g by mouth once daily. Dissolve dose in 4 - 8 ounces of liquid and take as directed. - omeprazole (PRILOSEC) 40 mg capsule Take 1 capsule by mouth once daily. - Nutritional Supplements (OPTIMENTAL) liqd Take 237 mL by mouth once daily. Okay with what insurance covers - Diaper,Brief, Adult,Disposable (DEPEND EASY FIT UNDERGARMENTS) Size Large pull up. Change depends once every 1-2 hrs. Dx incontinence (788.30) Prolapsed bladder (618.01) - atorvastatin (LIPITOR) 40 mg tablet Take 1 tablet by mouth daily at bedtime. - senna-docusate (SENNA PLUS) 8.6-50 mg per tablet Take 1 tablet by mouth every morning AND 1 tablet daily at bedtime. - tiotropium bromide (SPIRIVA RESPIMAT) 2.5 mcg/actuation inhaler Inhale 2 Puffs as instructed once daily. Inhale two puffs once daily. - sodium phosphate-sodium bisphosphate (FLEET) enema 133 mL by RECTAL route as needed for constipation. - ondansetron (ZOFRAN) 4 mg tablet Take 1 tablet by mouth every 8 hours as needed for nausea/vomiting. - magnesium hydroxide (MILK OF MAGNESIA) 400 mg/5 mL suspension Take 30 mL by mouth once daily as needed for constipation. - lisinopril (ZESTRIL) 5 mg tablet Take 1 tablet by mouth once daily. - furosemide (LASIX) 20 mg tablet Take 1 tablet by mouth two times a day. - clopidogrel (PLAVIX) 75 mg tablet Take 1 tablet by mouth once daily. - Cholecalciferol, Vitamin D3, 125 mcg (5,000 unit) cap Take 1 capsule by mouth once daily. - carvedilol (COREG) 6.25 mg tablet Take 1 tablet by mouth two times a day with meals. - melatonin 10 mg tab Take 1 tablet by mouth at bedtime as needed for insomnia. - oxyCODONE myristate (XTAMPZA ER) 27 mg CSpT Take 1 capsule by mouth two times a day. - acetaminophen (TYLENOL) 325 mg tablet Take 650 mg by mouth every 4 hours as needed. - aluminum-magnesium hydroxide-simethicone (MAALOX,MYLANTA,MAG-AL PLUS) 200-200-20 mg/5 mL suspension Take 30 mL by mouth as needed. Problem List As Of Date 01/17/2025 Noted Resolved Essential hypertension, benign [I10] Lumbago [M54.50] 12/30/2005 Symptomatic menopausal or female climacteric st*12/30/2005 Anxiety [F41.9] Depression [F32.A] GERD (gastroesophageal reflux disease) [K21.9] Chronic pain [G89.29] COPD with exacerbation (HCC) [J44.1] 12/07/2023 Routine gynecological examination [Z01.419] 06/05/2014 09/23/2022 Well adult exam [Z00.00] 06/05/2014 09/23/2022 Stress incontinence, female [N39.3] 07/07/2014 Mixed hyperlipidemia [E78.2] 07/10/2014 Bladder prolapse, female, acquired [N81.10] 10/04/2014 Diverticulosis [K57.90] 03/20/2015 Smoker [F17.200] 12/28/2015 Epigastric pain [R10.13] 04/16/2016 04/16/2016 Colon cancer screening [Z12.11] 04/16/2016 04/16/2016 Retana's esophagus [K22.70] 08/21/2016 RUQ pain [R10.11] 08/21/2016 12/07/2023 Visual disturbances [H53.9] 08/21/2016 Near syncope [R55] 08/21/2016 09/23/2022 Heart palpitations [R00.2] 09/29/2016 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 Normal [facility] Gastroenterology Visit Repor ton 01-13-2025 Gastroenterology Visit Report [facility] Gastroenterology [address] [place] [address] OFFICE VISIT Date of Service: 01/13/25 MR#: [id number] Acct: [id number] Name: LUIS FMARCIA P Rep #: [id number] : 1955 Provider: Rakesh Martinez DO Age/Sex: 69/F [place] [facility] [place]: Signed Intake Vital Signs 01/10/25 15:15 Height 5 ft 1 in Intake Visit Reasons: Unable to eat Allergies Iodinated Contrast Media (iodine contrast) Allergy (Verified 01/13/25 11:03) SOB Medications ???Medication ???Instructions ???Recorded ???Confirmed ???Type inhalational spacing device #1 ea 02/17/23 01/13/25 Rx (Aerochamber MV spacer) tiotropium bromide 2.5 2 puff inhalation DAILY #4 grams 0 02/17/23 01/13/25 Rx mcg/actuation mist for inhalation (Spiriva Respimat) lorazepam 1 mg tablet (Ativan) 1 mg PO TID PRN anxiety 07/16/23 0 01/13/25 History gabapentin 400 mg capsule 400 mg PO Q6H 07/29/23 01/13/25 Hi story nitroglycerin 0.4 mg sublingual 0.4 mg buccal Q5M PRN chest pain 1 09/28/22 01/13/25 History tablet sucralfate 1 gram tablet 1 g PO Q8H 07/29/23 01/13/25 Histo ry melatonin 3 mg capsule 3 mg PO QHS 09/05/23 01/13/25 Hist ory albuterol 90 mcg-budesonide 80 1 - 2 inh inhalation BID PRN 09/2801/13/25 History mcg/actuation HFA aerosol inhaler shortness of breath (Airsupra) atorvastatin 40 mg tablet 40 mg PO QHS 09/28/24 01/13/25 His tory bisacodyl 5 mg tablet,delayed 5 mg PO DAILY PRN constipation 01/13/25 History release cholecalciferol (vitamin D3) 125 125 mcg PO DAILY 09/28/24 01/13/25 History mcg (5,000 unit) capsule hydrocodone-acetaminophen 5-325mg 1 tab PO Q4H 09/28/24 01/13/25 Hi story 5mg-325mg lisinopril 5 mg tablet 5 mg PO DAILY 09/28/24 01/13/25 Hi story oxycodone myristate 18 mg capsule 18 mg PO BID 09/28/24 01/13/25 Hi story sprinkle extended release 12hr(DON'T CRUSH) (Xtampza ER) polyethylene glycol 3350 17 17 g PO BID 09/28/24 01/13/25 Hist ory gram/dose oral powder promethazine 25 mg tablet 25 mg PO PRN PRN nausea and 01/13/25 History vomiting budesonide-formoterol HFA 160 1 puff inhalation BID #10.2 grams 09/30/24 01/13/25 Rx mcg-4.5 mcg/actuation aerosol inhaler (Symbicort) carvedilol 25 mg tablet 25 mg PO BID #120 tabs 10/04/24 Rx furosemide 40 mg tablet 40 mg PO QDAY #90 tabs 10/04/24 Rx clopidogrel 75 mg tablet 75 mg PO QDAY 01/13/25 01/13/25 Hi story omeprazole 40 mg capsule,delayed 40 mg PO QDAY 01/13/25 01/13/25 Hi story release potassium chloride 20 mEq 20 meq PO QDAY 01/13/25 01/13/25 H istory tablet,extended release sertraline 50 mg tablet 50 mg PO QDAY 01/13/25 01/13/25 Hi story spironolactone 25 mg tablet 25 mg PO QDAY 01/13/25 01/13/25 Hi story Have you fallen in the past year?: No PFSH Medical History Chronic pain Kidney disease Asthma Irregular heart beat Congestive heart failure (CHF) TIA (transient ischemic attack) Wears glasses Post-menopausal Arthritis History of renal disease High cholesterol DVT (deep venous thrombosis) Easy bruising Excessive bleeding Back pain Injury of back History of ulceration Difficulty chewing Gastric reflux Shortness of breath on exertion Hoarseness Chronic cough Leg cramps History of pain when walking History of edema History of echocardiogram History of stress test Cardiology follow-up encounter History of CHF (congestive heart failure) History of irregular heartbeat Chest pain Bullous emphysema COPD with asthma Esophagitis, unspecified without bleeding Unspecified combined 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 Other chronic pain Elevated troponin Sustained SVT Depression Osteoporosis Kidney stones Smoker Myocardial infarct History of non-ST elevation myocardial infarction (NSTEMI) (09/01/21) Essential hypertension Old anterior wall myocardial infarction Ischemic cardiomyopathy Opiate dependence Anxiety and depression TIA (transient ischemic attack) Obesity (BMI 30.0-34.9) EVELYN (obstructive sleep apnea) Personal history of transient ischemic attack (TIA), and cerebral infarction without residual deficits COPD (chronic obstructive pulmonary disease) Calculus of left kidney GERD (gastroesophageal reflux disease) Hyperlipidemia Atherosclerotic heart disease of [place] coronary artery without angina pectoris Tobacco abuse Surgical History History of cholecystectomy Hx of esophagogastroduodenoscop y History of cardiac catheterization History of hysterectomy History of left heart catheterization (01/20/22) History of total hysterectomy Hx of (more content not included)... [facility] Tele[facility] (INTMWS) ----- MARCIA MASCORRO ([id number]) 1955 F CHT Date Time Provider Department 01/12/25 GABRIEL GALVAN INTMWS During your visit today, we recorded the following information about you: Rula Hernandez RN 01/12/2025 3:24 PM Signed Regina with Palliative Care calls to notify provider that she will no longer be seeing patient under Palliative Care as patient's condition has improved and she no longer falls under their guidelines. Regina is asking if provider will prescribe lorazepam 1 mg three times daily for patient or refer to psych. Regina wants provider to be aware that the nursing staff at the AL do not feel that patient is even taking the medication as prescribed. She refuses to swallow the pills in front of staff and if the pill accidentally breaks patient demands that they give her another pill that is whole. Regina reports that nursing staff believes patient is pocketing the pills and giving them to her son when he comes to visit. Pended referral to psych. Needs diagnosis. Call back to notify Cadis of provider response is [phone]. WENDY Lucas Liza D, MD 01/19/2025 2:53 PM Addendum With that history, I would not prescribe the lorazepam 1 mg TID routinely for someone who has history of possibly diverting medication. Filed the consult order but not sure whether patient would come plus not sure we have anyone in [facility] who would see her to manage lorazepam if indicated. Would palliative care taper the RX or change it so not being given TID given question of diversion and not sure when can be seen by psych to take over management of med? Have they checked urine tox screen at Assisted Living? Micah Paige, RN 01/19/2025 3:13 PM Signed Called and left a voicemail for Regina TRAINING MANAGER with Palliative Care to call back and ask for a nurse to receive the providers message. WENDY Condon Amanda, RN 01/20/2025 1:59 PM Signed Regina TRAINING MANAGER with Palliative Care called and is notified of providers results and instructions. She voices understanding and reports they had talked with the Pt about weaning her off the medication and she gets very upset. She reports the Pt was worse off 12 months ago and is doing much better and is no longer a Palliative care candidate. She said they typically wean the Pts off the medications or see if Psych or Pts PCP would want to take over. She said while she was in the assisted living they had asked the nurses to watch the Pt take her medications, but they said it was the Pts right not to have them watch, so she states they tried to avoid that. She said they will wean her off and let the Pt know to try and get in with [facility] or [facility]. She said she just wanted to let the providers office know that the Pt may be upset and try to call in about the medication. WENDY Condon Liza D, MD 01/20/2025 6:29 PM Signed Below noted. Reviewed records on Epic on lorazepam. Patient had followed at [facility] before according to a medlist entry 12/13/2023. We gave one short term refill when was in transition from [facility] to [facility]. She should get this med from psych provider as noted--would hope she can get an appointment soon so would be able to get anxiety treated whether staying on lorazepam or other med adjustments. Will Palliative Care be helping patient get established with a provider? Or do we need to help with that? Micah Paige RN 01/21/2025 9:34 AM Signed Called and left a voicemail for Regina TRAINING MANAGER with Palliative Care to call back and ask for a nurse to receive the providers message. WENDY Condon Julia, LPN 01/24/2025 10:44 AM Signed 2nd message left asking Regina to return call and speak with a nurse. Allergies As of Date: 01/12/2025 Noted Allergy Reaction CONTRAST DYE (IODINE) 12/20/2023 10 - Anaphylaxis Date Reviewed: 01/03/2025 Reviewed by: Lyndsey Acevedo, JARRED.ALMOND ROASTER - Fully Assessed Reason for Visit: Patient Update [1234] Primary Visit Diagnosis:Anxiety [F41.9] Order(s):CONSULT TO [facility] [59002631] Order #: [id number]: 1 Prescriptions as of 02/03/2025 - DULoxetine (CYMBALTA) 40 mg cpDR Take 1 capsule by mouth once daily. - gabapentin (NEURONTIN) 400 mg capsule Take 1 capsule by mouth two times a day for 180 days. - albuterol-budesonide HFA (AIRSUPRA) 90-80 mcg/actuation inhaler Inhale 2 Puffs as instructed every 2 hours as needed for wheezing/shortness of breath. Do not take more than 12 inhalations in a 24 hour period. - Bisacodyl (DULCOLAX) 5 mg tab Take 1 tablet by mouth once daily as needed for constipation. - sucralfate (CARAFATE) 100 mg/mL suspension Take 10 mL by mouth four times daily. (take prior to meals and at bedtime) - promethazine (PHENERGAN) 25 mg tablet Take 1 tablet by mouth (more content not included)... Normal [facility] Absolute lymphocyte countOrd ered By: Javon Reyes on 01-10-2025 Lymphocytes Auto (Unsp spec) [#/Vol] 2.04 10*3/uL 0.83-4.51 [facility] Absolute neutrophil countOrd ered By: Javon Reyes on 01-10-2025 Neutrophils (Bld) [#/Vol] 3.0 10*3/uL 2.0-7.7 [facility] Anion gap in Serum or Plasma Ordered By: Javon Reyes on 01-10-2025 Anion gap [Moles/Vol] 8 mmol/L 5-15 [facility] Automated lymphocyte count a s percentage of total leukocytesOrdered By: Javon Reyes on 01-10-2025 Lymphocytes/100 WBC Auto (Unsp spec) 35.8 % 19-41 [facility] BUN/creatinine ratioOrdered By: Javon Reyes on 01-10-2025 Urea nitrogen/Creatinine [Mass ratio] 13.3 mg/mg 10-20 [facility] Basophil percentageOrdered B y: Javon Reyes on 01-10-2025 Basophils/100 WBC (Bld) 0.5 % 0-1 [facility] Bilirubin Test strip Ql (U)O rdered By: Javon Reyes on 01-10-2025 Bilirubin Ql (U) Negative Negative [facility] Bilirubin, totalOrdered By: Javon Reyes on 01-10-2025 Bilirubin [Mass/Vol] 0.36 mg/dL 0.00-1.30 [facility] CBC W/Diff, Automatedon Absolute Lymph 2.04 X10 3/uL Normal 0.83-4.51 [facility] Comment on above: Performed By: #### L 100.0100, L500.4050 ####[facility] [address] [place], [address] Absolute Neut 3.0 X10 3/uL Normal 2.0-7.7 [facility] Comment on above: Performed By: #### L 100.0100, L500.4050 ####[facility] [address] [place], [address] Basophils/100 WBC (Bld) 0.5 % Normal 0-1 [facility] Comment on above: Performed By: #### L 100.0100, L500.4050 ####[facility] [address] [place], [address] Eosinophils/100 WBC (Bld) 3.2 % Normal 0-5 [facility] Comment on above: Performed By: #### L 100.0100, L500.4050 ####[facility] [address] [place], [address] Erythrocyte distribution width (RBC) [Ratio] 13.2 % Normal 11.6-14.6 [facility] Comment on above: Performed By: #### L 100.0100, L500.4050 ####[facility] [address] [place], [address] Hematocrit (Bld) [Volume fraction] 41.6 % Normal 37-47 [facility] Comment on above: Performed By: #### L 100.0100, L500.4050 ####[facility] [address] [place], [address] Hemoglobin (Bld) [Mass/Vol] 13.7 g/dL Normal 12.0-15.0 [facility] Comment on above: Performed By: #### L 100.0100, L500.4050 ####[facility] [address] [place], [address] IG% 0.200 Normal 0.0-0.9 [facility] Comment on above: Result Comment: IG% - Immature Granulocytes (promyelocytes, myelocytes and metamyelocytes) > 1% indicates that a LEFT SHIFT is Present. Performed By: #### L 100.0100, L500.4050 ####[facility] [address] [place], [address] Lymphocytes/100 WBC (Bld) 35.8 % Normal 19-41 [facility] Comment on above: Performed By: #### L 100.0100, L500.4050 ####[facility] [address] [place], [address] MCH (RBC) [Entitic mass] 32.2 pg High 27.0-32.0 [facility] Comment on above: Performed By: #### L 100.0100, L500.4050 ####[facility] [address] [place], [address] MCHC (RBC) [Mass/Vol] 32.9 g/dL Normal 32-36 [facility] Comment on above: Performed By: #### L 100.0100, L500.4050 ####[facility] [address] [place], [address] MCV (RBC) [Entitic vol] 97.7 fL Normal 81-99 [facility] Comment on above: Performed By: #### L 100.0100, L500.4050 ####[facility] [address] [place], [address] Monocytes/100 WBC (Bld) 8.2 % Normal 0-10 [facility] Comment on above: Performed By: #### L 100.0100, L500.4050 ####[facility] [address] [place], [address] Neutrophils/100 WBC (Bld) 52.1 % Normal 47-70 [facility] Comment on above: Performed By: #### L 100.0100, L500.4050 ####[facility] [address] [place], [address] Nucleated RBC (Bld) [#/Vol] 0 10*3/uL Normal 0-5 [facility] Comment on above: Performed By: #### L 100.0100, L500.4050 ####[facility] [address] [place], [address] Platelet mean volume (Bld) [Entitic vol] 9.9 fL Normal 6.2-12.0 [facility] Comment on above: Performed By: #### L 100.0100, L500.4050 ####[facility] [address] [place], [address] Platelets (Bld) [#/Vol] 188 10*3/uL Normal 150-450 [facility] Comment on above: Performed By: #### L 100.0100, L500.4050 ####[facility] [address] [place], [address] RBC (Bld) [#/Vol] 4.26 10*6/uL Normal 4.2-5.4 [facility] Comment on above: Performed By: #### L 100.0100, L500.4050 ####[facility] [address] [place], [address] RDW SD 47.3 fl High 35.1-43.9 [facility] Comment on above: Performed By: #### L 100.0100, L500.4050 ####[facility] [address] [place], [address] WBC (Bld) [#/Vol] 5.7 10*3/uL Normal 4.4-11.0 [facility] Comment on above: Performed By: #### L 100.0100, L500.4050 ####[facility] [address] [place], [address] [facility] Telephone (INTMWS) ----- MARCIA MASCORRO ([id number]) 1955 F T Date Time Provider Department 01/10/25 LYNDSEY ACEVEDO INTWS During your visit today, we recorded the following information about you: Lyndsey Acevedo APRN.CNS 01/10/2025 3:44 PM Signed I have a form from [facility] form on my desk. Is she currently continuing to reside there? Do they need the last office note? Did not discuss at her recent visit, not sure why I have the form. Avelina Blount LPN 01/12/2025 10:32 AM Signed Spoke with [facility] and they stated that form is just her annual update for the chart. They just need last office note faxed with form. Patient has an appointment with Dr. Galvan on 01/16/25 and would prefer this office note but if patient no shows can send Lyndsey Acevedo ALMOND ROASTER last office note. Form is at Dr Galvan nurse desk Allergies As of Date: 01/10/2025 Noted Allergy Reaction CONTRAST DYE (IODINE) 12/20/2023 10 - Anaphylaxis Date Reviewed: 01/03/2025 Reviewed by: Lyndsey Acevedo APRN.ALMOND ROASTER - Fully Assessed Reason for Visit: Forms [233] Cmt: [facility] form Prescriptions as of 01/12/2025 - DULoxetine (CYMBALTA) 40 mg cpDR Take 1 capsule by mouth once daily. - gabapentin (NEURONTIN) 400 mg capsule Take 1 capsule by mouth two times a day for 180 days. - albuterol-budesonide HFA (AIRSUPRA) 90-80 mcg/actuation inhaler Inhale 2 Puffs as instructed every 2 hours as needed for wheezing/shortness of breath. Do not take more than 12 inhalations in a 24 hour period. - Bisacodyl (DULCOLAX) 5 mg tab Take 1 tablet by mouth once daily as needed for constipation. - sucralfate (CARAFATE) 100 mg/mL suspension Take 10 mL by mouth four times daily. (take prior to meals and at bedtime) - promethazine (PHENERGAN) 25 mg tablet Take 1 tablet by mouth every 6 hours as needed. - spironolactone (ALDACTONE) 25 mg tablet Take 1 tablet by mouth once daily. - polyethylene glycol 3350 (MIRALAX) 17 gram/dose powder Take 17 g by mouth once daily. Dissolve dose in 4 - 8 ounces of liquid and take as directed. - omeprazole (PRILOSEC) 40 mg capsule Take 1 capsule by mouth once daily. - Nutritional Supplements (OPTIMENTAL) liqd Take 237 mL by mouth once daily. Okay with what insurance covers - Diaper,Brief, Adult,Disposable (DEPEND EASY FIT UNDERGARMENTS) Size Large pull up. Change depends once every 1-2 hrs. Dx incontinence (788.30) Prolapsed bladder (618.01) - atorvastatin (LIPITOR) 40 mg tablet Take 1 tablet by mouth daily at bedtime. - senna-docusate (SENNA PLUS) 8.6-50 mg per tablet Take 1 tablet by mouth every morning AND 1 tablet daily at bedtime. - tiotropium bromide (SPIRIVA RESPIMAT) 2.5 mcg/actuation inhaler Inhale 2 Puffs as instructed once daily. Inhale two puffs once daily. - sodium phosphate-sodium bisphosphate (FLEET) enema 133 mL by RECTAL route as needed for constipation. - ondansetron (ZOFRAN) 4 mg tablet Take 1 tablet by mouth every 8 hours as needed for nausea/vomiting. - magnesium hydroxide (MILK OF MAGNESIA) 400 mg/5 mL suspension Take 30 mL by mouth once daily as needed for constipation. - lisinopril (ZESTRIL) 5 mg tablet Take 1 tablet by mouth once daily. - furosemide (LASIX) 20 mg tablet Take 1 tablet by mouth two times a day. - clopidogrel (PLAVIX) 75 mg tablet Take 1 tablet by mouth once daily. - Cholecalciferol, Vitamin D3, 125 mcg (5,000 unit) cap Take 1 capsule by mouth once daily. - carvedilol (COREG) 6.25 mg tablet Take 1 tablet by mouth two times a day with meals. - melatonin 10 mg tab Take 1 tablet by mouth at bedtime as needed for insomnia. - oxyCODONE myristate (XTAMPZA ER) 27 mg CSpT Take 1 capsule by mouth two times a day. - acetaminophen (TYLENOL) 325 mg tablet Take 650 mg by mouth every 4 hours as needed. - aluminum-magnesium hydroxide-simethicone (MAALOX,MYLANTA,MAG-AL PLUS) 200-200-20 mg/5 mL suspension Take 30 mL by mouth as needed. Problem List As Of Date 01/10/2025 Noted Resolved Essential hypertension, benign [I10] Lumbago [M54.50] 12/30/2005 Symptomatic menopausal or female climacteric st*12/30/2005 Anxiety [F41.9] Depression [F32.A] GERD (gastroesophageal reflux disease) [K21.9] Chronic pain [G89.29] COPD with exacerbation (HCC) [J44.1] 12/07/2023 Routine gynecological examination [Z01.419] 06/05/2014 09/23/2022 Well adult exam [Z00.00] 06/05/2014 09/23/2022 Stress incontinence, female [N39.3] 07/07/2014 Mixed hyperlipidemia [E78.2] 07/10/2014 Bladder prolapse, female, acquired [N81.10] 10/04/2014 Diverticulosis [K57.90] 03/20/2015 Smoker [F17.200] 12/28/2015 Epigastric pain [R10.13] 04/16/2016 04/16/2016 Colon cancer screening [Z12.11] 04/16/2016 04/16/2016 Retana's esophagus [K22.70] 08/21/2016 RUQ pain [R10.11] 08/21/2016 12/07/2023 Visual disturbances [H53.9] 08/21/2016 Near syncope (more content not included)... Normal [facility] Carbon dioxide, total [Moles /volume] in Central venous bloodOrdered By: Javon Reyes on 01-10-2025 CO2 [Moles/Vol] 29.1 mmol/L 21.0-32.0 [facility] Chloride assayOrdered By: Ashvin Reyes on 01-10-2025 Chloride [Moles/Vol] 102 mmol/L 98-108 [facility] Comprehensive Metabolic Prof ilon 01-10-2025 Albumin [Mass/Vol] 3.7 g/dL Normal 3.4-4.8 [facility] Comment on above: Performed By: #### L 100.0100, L500.4050 ####[facility] [address] [place], [address] Albumin/Globulin [Mass ratio] 1.3 {ratio} Normal 0.9-2.4 [facility] Comment on above: Performed By: #### L 100.0100, L500.4050 ####[facility] [address] [place], [address] ALK PHOS 100 U/L Normal 35-104 [facility] Comment on above: Performed By: #### L 100.0100, L500.4050 ####[facility] [address] [place], [address] ALT [Catalytic activity/Vol] 6 U/L Normal <=34 [facility] Comment on above: Performed By: #### L 100.0100, L500.4050 ####[facility] [address] [place], [address] AST [Catalytic activity/Vol] 15 U/L Normal <=31 [facility] Comment on above: Performed By: #### L 100.0100, L500.4050 ####[facility] [address] [place], [address] Bilirubin [Mass/Vol] 0.36 mg/dL Normal 0.00-1.30 [facility] Comment on above: Performed By: #### L 100.0100, L500.4050 ####[facility] [address] [place], [address] BUN/CRE 13.3 RATIO Normal 10-20 [facility] Comment on above: Performed By: #### L 100.0100, L500.4050 ####[facility] [address] [place], [address] Calcium [Mass/Vol] 9.5 mg/dL Normal 7.6-11.0 [facility] Comment on above: Performed By: #### L 100.0100, L500.4050 ####[facility] [address] [place], [address] Chloride [Moles/Vol] 102 mmol/L Normal 98-108 [facility] Comment on above: Performed By: #### L 100.0100, L500.4050 ####[facility] [address] [place], [address] CO2 [Moles/Vol] 29.1 mmol/L Normal 21.0-32.0 [facility] Comment on above: Performed By: #### L 100.0100, L500.4050 ####[facility] [address] [place], [address] Creatinine [Mass/Vol] 0.80 mg/dL Normal 0.70-1.20 [facility] Comment on above: Performed By: #### L 100.0100, L500.4050 ####[facility] [address] [place], [address] ECRCL 66.30 ml/min Normal 50-250 [facility] Comment on above: Performed By: #### L 100.0100, L500.4050 ####[facility] [address] [place], [address] GAP 8 Normal 5-15 [facility] Comment on above: Performed By: #### L 100.0100, L500.4050 ####[facility] [address] [place], [address] GFR/1.73 sq M.predicted among non-blacks MDRD (S/P/Bld) [Vol rate/Area] 80 mL/min/{1.73_m2} Normal >60 [facility] Comment on above: Result Comment: mL/m in/1.73m2 CKD-EPI Creatinine Equation (2020) Performed By: #### L 100.0100, L500.4050 ####[facility] [address] [place], [address] Globulin (S) [Mass/Vol] 2.9 g/dL Normal 2.2-4.2 [facility] Comment on above: Performed By: #### L 100.0100, L500.4050 ####[facility] [address] [place], [address] Glucose [Mass/Vol] 94 mg/dL Normal 70-99 [facility] Comment on above: Performed By: #### L 100.0100, L500.4050 ####[facility] [address] [place], [address] Potassium [Moles/Vol] 4.2 mmol/L Normal 3.3-5.1 [facility] Comment on above: Performed By: #### L 100.0100, L500.4050 ####[facility] [address] [place], [address] Sodium [Moles/Vol] 140 mmol/L Normal 133-145 [facility] Comment on above: Performed By: #### L 100.0100, L500.4050 ####[facility] [address] [place], [address] T PROT 6.6 g/dL Normal 5.9-8.4 [facility] Comment on above: Performed By: #### L 100.0100, L500.4050 ####[facility] [address] [place], [address] Urea nitrogen [Mass/Vol] 11 mg/dL Normal 4-19 [facility] Comment on above: Performed By: #### L 100.0100, L500.4050 ####[facility] [address] [place], [address] Emergency Department Summary on 01-10-2025 Emergency Department Summary [facility] Medical Records Department [address] [place] [address] Emergency Department Summary 01/10/25 MR#: [id number] Acct: [id number] Name: MARCIA MASCORRO Rep #: [id number] : 1955 69 From: Javon Reyes MD PCP: Dr. Gabriel Galvan MD Status:REG ER Location: ED HPI HPI - GI History of Present Illness Chief Complaint: Abd Pain Informant: patient Abdominal Pain/Flank Pain Onset: Month(s) Context: Gradual Onset Timing: Continuous Quality: Aching Location: Left Flank Current Severity: Mild Maximum Severity: Moderate Worsened by: Nothing Relieved by: Nothing Nausea/Vomiting/Emesis GI Symptom: Negative for Nausea or Vomiting Diarrhea/Melena/Hematoche armond GI Symptom: Negative for Diarrhea, Melena or Hematochezia Associated Symptoms Associated Symptoms: Negative for Dysuria, Frequency, Hematuria or Urgency Narrative Narrative: 61-year-old female history of chronic pain, CHF, TIA, COPD on O2 at home, hiatal hernia. Complaining of about chronic left flank pain. She has had it for months or longer. She was just seen in the emergency department at the end of last month had an extensive workup including a CAT scan without any specific cause for her pain. She is on chronic pain medication at home and uses [place]. She denies any change in the pain. She denies any nausea, vomiting or diarrhea. She denies any dysuria or hematuria. She denies any fever. Nothing particular makes the pain better or worse. Prior similar symptoms: Yes Recent Illness/Hospitalization: No PFSH PFSH Medical History Chronic pain Kidney disease Asthma Irregular heart beat Congestive heart failure (CHF) TIA (transient ischemic attack) Wears glasses Post-menopausal Arthritis History of renal disease High cholesterol DVT (deep venous thrombosis) Easy bruising Excessive bleeding Back pain Injury of back History of ulceration Difficulty chewing Gastric reflux Shortness of breath on exertion Hoarseness Chronic cough Leg cramps History of pain when walking History of edema History of echocardiogram History of stress test Cardiology follow-up encounter History of CHF (congestive heart failure) History of irregular heartbeat Chest pain Bullous emphysema COPD with asthma Esophagitis, unspecified without bleeding Unspecified combined 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 Other chronic pain Elevated troponin Sustained SVT Depression Osteoporosis Kidney stones Smoker Myocardial infarct History of non-ST elevation myocardial infarction (NSTEMI) (09/01/21) Essential hypertension Old anterior wall myocardial infarction Ischemic cardiomyopathy Opiate dependence Anxiety and depression TIA (transient ischemic attack) Obesity (BMI 30.0-34.9) EVELYN (obstructive sleep apnea) Personal history of transient ischemic attack (TIA), and cerebral infarction without residual deficits COPD (chronic obstructive pulmonary disease) Calculus of left kidney GERD (gastroesophageal reflux disease) Hyperlipidemia Atherosclerotic heart disease of [place] coronary artery without angina pectoris Tobacco abuse Home Medications ???Medication ???Instructions ???Recorded ???Last Taken ???Type inhalational spacing device #1 ea 02/17/23 Unknown Rx (Aerochamber MV spacer) tiotropium bromide 2.5 2 puff inhalation DAILY #4 grams 0 02/17/23 09/27/24 Rx mcg/actuation mist for inhalation (Spiriva Respimat) lorazepam 1 mg tablet (Ativan) 1 mg PO TID PRN anxiety 07/16/23 0 09/27/24 History gabapentin 400 mg capsule 400 mg PO Q6H 07/29/23 09/27/24 Hi story nitroglycerin 0.4 mg sublingual 0.4 mg buccal Q5M PRN chest pain 1 09/28/22 Unknown History tablet sucralfate 1 gram tablet 1 g PO Q8H 07/29/23 09/27/24 Histo ry melatonin 3 mg capsule 3 mg PO QHS 09/05/23 09/27/24 Hist ory albuterol 90 mcg-budesonide 80 1 - 2 inh inhalation BID PRN 09/2809/27/24 History mcg/actuation HFA aerosol inhaler shortness of breath (Airsupra) atorvastatin 40 mg tablet 40 mg PO QHS 09/28/24 09/27/24 His tory bisacodyl 5 mg tablet,delayed 5 mg PO DAILY PRN constipation Unknown History release cholecalciferol (vitamin D3) 125 125 mcg PO DAILY 09/28/24 09/27/24 History mcg (5,000 unit) capsule hydrocodone-acetaminophen 5-325mg 1 tab PO Q4H 09/28/24 09/27/24 Hi story 5mg-325mg lisinopril 5 mg tablet 5 mg PO DAILY 09/28/24 09/27/24 Hi story oxycodone myristate 18 mg capsule 18 mg PO BID 09/28/24 09/27/24 Hi story sprinkle extended release 12hr(DON'T CRUSH) (Xtampza ER) polyethylene glycol 3350 17 17 g PO BID 09/28/24 09/27/24 Hist ory gram/dose oral powder promethazine 25 mg tablet 25 mg PO PRN PRN nausea and Unknown History (more content not included)... Normal [facility] Eosinophil percentageOrdered By: Javon Reyes on 01-10-2025 Eosinophils/100 WBC (Bld) 3.2 % 0-5 [facility] Epithelial cells.squamous LM Ql (Urine sed)Ordered By: Javon Reyes on 01-10-2025 Epithelial cells.squamous LM.HPF (Urine sed) [#/Area] 0 /[HPF] 5-10 [facility] Erythrocyte distribution wid th (RBC) [Ratio]Ordered By: Javon Reyes on 01-10-2025 Erythrocyte distribution width (RBC) [Entitic vol] 47.3 fL High 35.1-43.9 [facility] Erythrocyte distribution wid th ratioOrdered By: Javon Reyes on 01-10-2025 Erythrocyte distribution width (RBC) [Ratio] 13.2 % 11.6-14.6 [facility] Erythrocyte distribution wid th standard deviationOrdered By: Javon Reyes on 01-10-2025 Erythrocyte distribution width (RBC) [Ratio] 47.3 fl High 35.1-43.9 [facility] Estimation of creatinine pietro aranceOrdered By: Javon Reyes on 01-10-2025 Estimated Creatinine Clearance Calc 66.30 ml/min 50-250 [facility] GFR/1.73 sq M.predicted gabbi g non-blacks MDRD (S/P/Bld) [Vol rate/Area]Ordered By: Javon Reyes on 01-10-2025 Estimated GFR (MDRD) Non-Af Amer 80 >60 [facility] Comment on above: mL/min/1.73m2 CKD-EP I Creatinine Equation (2020) Glomerular filtration rate ( GFR) estimation/1.73 sq m using serum, plasma, or whole bOrdered By: Javon Reyes on 01-10-2025 GFR/1.73 sq M.predicted among non-blacks MDRD (S/P/Bld) [Vol rate/Area] 80 mL/min/{1.73_m2} >60 [facility] Glucose Ql (U)Ordered By: Ashvin Reyes on 01-10-2025 Urine Glucose (UA) Normal mg/dl Normal [facility] Hematocrit Auto (Bld) [Volum e fraction]Ordered By: Javon Reyes on 01-10-2025 Hematocrit (Bld) [Volume fraction] 41.6 % 37-47 [facility] Hemoglobin measurementOrdere d By: Javon Reyes on 01-10-2025 Hemoglobin (Bld) [Mass/Vol] 13.7 g/dL 12.0-15.0 [facility] Immature granulocytes/100 WB C Auto (Bld)Ordered By: Javon Reyes on 01-10-2025 Immature granulocytes/100 WBC (Bld) 0.200 % 0.0-0.9 [facility] Comment on above: IG% - Immature Granu locytes (promyelocytes, myelocytes and metamyelocytes) > 1% indicates that a LEFT SHIFT is Present. Ketones Test strip Ql (U)Ord ered By: Javon Reyes on 01-10-2025 Ketones Ql (U) Negative Negative [facility] - Chemistry and C hemistry - challengeOrdered By: Javon Reyes on 01-10-2025 AST [Catalytic activity/Vol] 15 U/L <32 [facility] Lymphocytes Auto (Unsp spec) [#/Vol]Ordered By: Javon Reyes on 01-10-2025 Lymphocytes (Bld) [#/Vol] 2.04 10*3/uL 0.83-4.51 [facility] Lymphocytes/100 WBC Auto (Un sp spec)Ordered By: Javon Reyes on 01-10-2025 Lymphocytes/100 WBC (Bld) 35.8 % 19-41 [facility] MCV (mean corpuscular volume ) determinationOrdered By: Javon Ryees on 01-10-2025 MCV (RBC) [Entitic vol] 97.7 fL 81-99 [facility] Mean corpuscular hemoglobin (MCH) determinationOrdered By: Javon Reyes on 01-10-2025 MCH (RBC) [Entitic mass] 32.2 pg High 27.0-32.0 [facility] Mean corpuscular hemoglobin concentration (MCHC) determinationOrdered By: Javon Reyes on 01-10-2025 MCHC (RBC) [Mass/Vol] 32.9 g/dL 32-36 [facility] Mean platelet volume determi nationOrdered By: Javon Reyes on 01-10-2025 Platelet mean volume (Bld) [Entitic vol] 9.9 fL 6.2-12.0 [facility] Microscopic analysis of urin e for red blood cells (RBC)Ordered By: Javon Reyes on 01-10-2025 Urine RBC 0 SEEN /hpf 0-5 [facility] Monocyte percentageOrdered B y: Javon Reyes on 01-10-2025 Monocytes/100 WBC (Bld) 8.2 % 0-10 [facility] Mucus LM Ql (Urine sed)Order ed By: Javon Reyes on 01-10-2025 Mucus Ql (Urine sed) 0 SEEN /hpf [facility] Neutrophil percentageOrdered By: Javon Reyes on 01-10-2025 Neutrophils/100 WBC (Bld) 52.1 % 47-70 [facility] Nitrite Test strip Ql (U)Ord ered By: Javon Reyes on 01-10-2025 Nitrite Ql (U) Negative Negative [facility] No Panel InformationOrdered By: Javon Reyes on 01-10-2025 15 U/L <32 [facility] Nucleated red blood cell per centageOrdered By: Javon Reyes on 01-10-2025 Nucleated RBC/100 WBC (Bld) [Ratio] 0 % 0-5 [facility] Platelet countOrdered By: Ashvin Reyes on 01-10-2025 Platelets (Bld) [#/Vol] 188 10*3/uL 150-450 [facility] Potassium (Unsp spec) [Mass/ Vol]Ordered By: Javon Reyes on 01-10-2025 Potassium [Moles/Vol] 4.2 mmol/L 3.3-5.1 [facility] Potassium measurement (mass/ volume)Ordered By: Javon Reyes on 01-10-2025 Potassium (Unsp spec) [Mass/Vol] 4.2 mmol/L 3.3-5.1 [facility] Protein Test strip Ql (U)Ord ered By: Javon Reyes on 01-10-2025 Protein Ql (U) 30 mg/dl High Negative [facility] RBC Auto (Bld) [#/Vol]Ordere d By: Javon Reyes on 01-10-2025 RBC (Bld) [#/Vol] 4.26 10*6/uL 4.2-5.4 [facility] Serum creatinine measurement (mass/volume)Ordered By: Javon Reyes on 01-10-2025 Creatinine [Mass/Vol] 0.80 mg/dL 0.70-1.20 [facility] Serum globulin measurementOr dered By: Javon Reyes on 01-10-2025 Globulin (S) [Mass/Vol] 2.9 g/dL 2.2-4.2 [facility] Serum glucose measurement (m ass/volume)Ordered By: Javon Reyes on 01-10-2025 Glucose [Mass/Vol] 94 mg/dL 70-99 [facility] Serum or plasma alanine smith otransferase (ALT) measurementOrdered By: Javon Reyes on 01-10-2025 ALT [Catalytic activity/Vol] 6 U/L <35 [facility] Serum or plasma albumin areli urement (mass/volume)Ordered By: Javon Reyes on 01-10-2025 Albumin [Mass/Vol] 3.7 g/dL 3.4-4.8 [facility] Serum or plasma albumin/glob ulin mass ratioOrdered By: Javon Reyes on 01-10-2025 Albumin/Globulin [Mass ratio] 1.3 {ratio} 0.9-2.4 [facility] Serum or plasma alkaline abimael sphatase measurementOrdered By: Javon Reyes on 01-10-2025 ALP [Catalytic activity/Vol] 100 U/L 35-104 [facility] Serum or plasma calcium areli urement (mass/volume)Ordered By: Javon Reyes on 01-10-2025 Calcium [Mass/Vol] 9.5 mg/dL 7.6-11.0 [facility] Serum or plasma urea nitroge n measurement (mass/volume)Ordered By: Javon Reyes on 01-10-2025 Urea nitrogen [Mass/Vol] 11 mg/dL 4-19 [facility] Sodium levelOrdered By: Javon Reyes on 01-10-2025 Sodium [Moles/Vol] 140 mmol/L 133-145 [facility] Squamous epithelial cells de tection in urine sediment by light microscopyOrdered By: Javon Reyes on 01-10-2025 Epithelial cells.squamous LM Ql (Urine sed) 0-5 SEEN /hpf - [facility] Total proteinOrdered By: Glenn Reyes on 01-10-2025 Protein [Mass/Vol] 6.6 g/dL 5.9-8.4 [facility] Urinalysis, Completeon 01-10 EPI,SQUAMOUS 0-5 SEEN Normal - [facility] Comment on above: Order Comment: CLEAN CATCH Performed By: #### L 400.0001 #### [facility] [address] [place], [address] WBC 0-5 SEEN Normal 0-5 [facility] Comment on above: Order Comment: CLEAN CATCH Performed By: #### L 400.0001 #### [facility] [address] [place], [address] BACTERIA 0 SEEN Normal None Seen [facility] Comment on above: Order Comment: CLEAN CATCH Performed By: #### L 400.0001 #### [facility] [address] [place], [address] Mucus Ql (Urine sed) 0 SEEN Normal [facility] Comment on above: Order Comment: CLEAN CATCH Performed By: #### L 400.0001 #### [facility] [address] [place], [address] RBC 0 SEEN Normal 0-5 [facility] Comment on above: Order Comment: CLEAN CATCH Performed By: #### L 400.0001 #### [facility] [place], [address] Urine blood detectionOrdered By: Javon Reyes on 01-10-2025 Urine Occult Blood Negative Negative [facility] Urine clarityOrdered By: Glenn Reyes on 01-10-2025 Clarity (U) Clear Clear [facility] Urine color determinationOrd ered By: Javon Reyes on 01-10-2025 Color (U) Yellow Yellow [facility] Urine glucose detectionOrder ed By: Javon Reyes on 01-10-2025 Glucose Ql (U) Normal mg/dl Normal [facility] Urine leukocyte esterase det ection by dipstickOrdered By: Javon Reyes on 01-10-2025 Leukocyte esterase Test strip Ql (U) Negative Negative [facility] Urine pHOrdered By: Javon mir on 01-10-2025 pH (U) 6.0 [pH] 5.0 - 8.0 [facility] Urine sediment bacteria coun t by microscopy (number/high power field)Ordered By: Javon Reyes on 01-10-2025 Bacteria LM.HPF (Urine sed) [#/Area] 0 /[HPF] None Seen [facility] Urine specific gravity measu rementOrdered By: Javon Reyes on 01-10-2025 Specific gravity (U) [Rel density] 1.020 1.002-1.03 0 [facility] Urine urobilinogen measureme ntOrdered By: Javon Reyes on 01-10-2025 Urobilinogen Ql (U) 1 mg/dl High Normal [facility] Urobilinogen Ql (U)Ordered B y: Javon Reyes on 01-10-2025 Urobilinogen (U) [Mass/Vol] 1 mg/dL High Normal [facility] White blood cell (WBC) count Ordered By: Javon Reyes on 01-10-2025 WBC (Bld) [#/Vol] 5.7 10*3/uL 4.4-11.0 [facility] White blood cell countOrdere d By: Javon Reyes on 01-10-2025 Urine WBC 0-5 SEEN /hpf 0-5 [facility] White blood cell count 0-5 SEEN /hpf 0-5 [facility] Bacteria Ur Culton 04-29-202 5 Bacteria identified Cx Nom (U) ORGANISM ID: 1 50,000-<100,000 CFU/ml Normal urogenital yasmani Normal [facility] Comment on above: Performed By: #### 6 30-4 ####[facility] LABCLIA [id number] [address] OF [facility] CNOVon 01-03-2025 CNOV Office Visit (INTMWS ) ----- LUIS FMARCIA ([id number]) 1955 F CHT Date Time Provider Department 01/03/25 1:20 PM LYNDSEY ACEVEDO INTMWS During your visit today, we recorded the following information about you: Pulse Respiration Blood pressure Weight 77/minute 16/minute 111/77 82 kg Lyndsey Acevedo, 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.ALMOND ROASTER 01/03/2025 2:51 PM Signed Subjective Patient ID: Marcia is a 69 year old female who presents for Hospital F/U. HPI She was seen at [facility] on December 20, 2024 for shortness of breath. She was also seen at [facility] on December 30 for abdominal pain. She was seen at [facility] 04-21 for shortness of breath. She presented with her family due to increasing shortness of breath 2 days prior to arrival. She has a history of C OPD and wears oxygen at home. She had increased oxygen from 2 to 3 L at home. Reports pulse oximeter's were in the 70-80 range when checking at home. Notes that she continues to smoke. Noted that she was seen by pain management Dr. Aguilar and due to the concern came to the ER for evaluation. Pulse oximeter was 95% on 2 L in the ER. She was treated with DuoNeb and Solu-Medrol in the ER. EKG completed and showed normal sinus rhythm with no ischemic changes. Negative troponins. Chest x-ray showed right base atelectasis versus early infiltrate. She was not treated with antibiotics. She was treated with albuterol for the next 7 days following discharge. Smoking cessation was recommended. She was seen for left upper quadrant abdominal pain on December 30, 2024. Lab work EKG and chest x-ray without concerning findings. Provide CT of the abdomen showed no acute findings. History of Retana's esophagus. Sees gastroenterology, EGD 2023. Noted that hernia surgery considered but she was advised she was too high of risk. This showed esophageal mucosal changes secondary to Retana's. Treated with radiofrequency ablation. Medium sized hiatal hernia noted. Gastric erosions noted with no stigmata of recent bleeding. Palliative medicine: sees once per month Pulmonology: No current, has not completed PFTs Gastroenterology: Dr. Martinez Pain management: Dr. Adriane Tejada recommended 04/2024 : Plan: I think, to refer her up to the [facility] to be seen by Dr. Mcduffie. I am not sure if he is going to order any extra test on her. But I informed her that he may. Given her symptomatology reasonably sure he is probably going to offer her some form of surgery. Retana's Esophagus: - Diagnosed with Retana's esophagus; last EGD performed in 2023. - Has not followed up with Dr. Martinez due to illness and relocation. - Experiences postprandial pain radiating to the back, described as turning into a ball. Hiatal Hernia: - Diagnosed with a hiatal hernia by Dr. Tejada. - Has not yet seen the recommended specialist at the [facility]. Renal Concerns: - Reports foamy urine and severe back pain, described as pulling down and floating sensations. - Has chronic back pain; current pain is described as different from previous episodes. - Recent ER visit noted abnormalities in lung function. Peripheral Neuropathy: - Currently taking gabapentin TID for neuropathy, but reports it causes body jumping. - Requests to switch to Lyrica (pregabalin) for neuropathy management. - Also taking duloxetine for neuropathy. Pulmonary Concerns: - Uses supplemental oxygen, initially prescribed at 2 L/min, now increased to 3 L/min. - Has not seen a powder room attendant yet. ROS Constitutional: (no entries) Head: (no entries) Eyes: (no entries) Ears/Nose/Mouth/Throat: (no entries) Neck: (no entries) Cardiovascular: (no entries) Respiratory: (no entries) Gastrointestinal: (+) vomiting, (+) abdominal pain Genitourinary: (+) foamy urine, (+) flank pain Musculoskeletal: (+) chronic back pain Skin: (+) easy bruising Neurological: (+) involuntary muscle movements Psychiatric: (no entries) Endocrine: (no entries) Hematologic/Lymphatic: (no entries) Objective BP 111/77 Pulse 77 Resp 16 Wt 82 kg (180 lb 12.4 oz) BMI 30.08 kg/m? Physical Exam Vitals and nursing note reviewed. Constitutional: Appearance: Normal appearance. HENT: Head: Normocephalic and atraumatic. Eyes: Conjunctiva/sclera: Conjunctivae normal. Neck: Thyroid: No thyromegaly. Vascular: Normal carotid pulses. No JVD. Cardiovascular: Rate and Rhythm: Normal rate and regular rhythm. Pulses: Carotid pulses are 2+ on the right side and 2+ on the left side. Heart sounds: Normal heart sounds. Pulmonary: Breath sounds: Wheezing (few scattered expiratory) present. Comments: O2 2LNC Abdominal: General: Bowel sounds are normal. Palpations: Abdomen is soft. Tenderness: There is abdominal tenderness (LUQ). Skin: General: Skin is warm and dry. Ne (more content not included)... Normal [facility] UA DIP, URINE (POC)on 2024 BILIRUBIN UA (POCT) Small Abnormal Negative [facility] CLARITY UA (POCT) Clear [facility] COLOR UA (POCT) Yellow [facility] GLUCOSE UA (POCT) Negative Negative mg/dL [facility] Hemoglobin Ql (U) Negative Negative [facility] Interpretation and review of laboratory results Abnormal [facility] KETONE UA (POCT) Trace Negative mg/dL [facility] LEUKOCYTES UA (POCT) Negative Negative [facility] NITRITE UA (POCT) Negative Negative [facility] PH UA (POCT) 5.5 4.5 - 8.0 [facility] Protein Ql (U) Trace Abnormal Negative mg/dL [facility] SPECIFIC GRAVITY UA (POCT) 1.025 1.005 - 1.030 [facility] UROBILINOGEN UA (POCT) 1 Sahley l E.U./dL [facility] Location:[facility] [place], [address] [place] [address], [place], [address] [facility] POINT OF CARE [facility] Abdomen/Pelvis without Conto n 12-30-2024 Abdomen/Pelvis without Cont [facility] Imaging Services [address] [place], [place] [address] Abdomen/Pelvis without Cont MR#: [id number] Acct: [id number] Name: MARCIA MASCRORO Rep #: [id number] : 1955 F 69 From: Shelton Gandhi MD PCP: Dr. Gabriel Galvan MD Status: REG ER Study: Abdomen/Pelvis without Cont Date of Exam: 12/07 01/29 Exam# [id number] Ordering Dr: Waqas Hart MD PROCEDURE: ABDOMEN/PELVIS WITHOUT CONT 12/30/2024 REASON FOR EXAM: LEFT UPPER QUADRANT ABDOMINAL PAIN TECHNIQUE: Abdomen and pelvis CT without intravenous contrast. Noncontrast technique limits evaluation of the abdominal and pelvic viscera. Coronal and Sagittal reconstruction series were provided. One or more dose reduction techniques were used (e.g., Automated exposure control, adjustment of the mA and/or kV according to patient size, use of iterative reconstruction technique). PATIENT PREPARATION: Per protocol ORAL CONTRAST TYPE: None. AMOUNT: mL FINDINGS: Lung bases: Lung bases are clear. Liver: Normal size. No obvious mass. Gallbladder: Not visualized Spleen: Normal size. Pancreas: Normal size. No surrounding inflammation. Adrenals: Unremarkable. Kidneys: Bilateral nonobstructing renal stones. No hydronephrosis, ureteral stone, ureteral dilatation. Bladder: Unremarkable. Reproductive Organs: Unremarkable. Bowel: Large hiatal hernia. Some diverticula within the sigmoid colon consistent with diverticulosis. No wall thickening or stranding of surrounding fat to suggest diverticulitis. Appendix: Unremarkable. Lymph nodes: Unremarkable. Vasculature: Fusiform dilatation of the infrarenal abdominal aorta with a maximal diameter of 3.8 cm consistent with an aneurysm. Mild amount of peripheral calcified plaque. Calcified plaque in the iliac arteries. Peritoneum / Retroperitoneum: Unremarkable. Bones: Mild dextroscoliosis lumbar spine with degenerative disc disease. CT/Abdomen/Pelvis without Cont IMPRESSION: No acute abnormality. Large hiatal hernia. Bilateral nonobstructing renal stones. Sigmoid diverticulosis without diverticulitis. 3.8 cm abdominal aortic aneurysm. Reading Location: [id number] CC: Dr. Waqas Hart MD; Dr. Gabriel Galvan MD Service Consultant: Signed Normal [facility] Absolute lymphocyte countOrd ered By: Waqas Hart on 12-30-2024 Lymphocytes Auto (Unsp spec) [#/Vol] 2.64 10*3/uL 0.83-4.51 [facility] Absolute neutrophil countOrd ered By: Waqas Hart on 12-30-2024 Neutrophils (Bld) [#/Vol] 4.7 10*3/uL 2.0-7.7 [facility] Anion gap in Serum or Plasma Ordered By: Waqas Hart on 12-30-2024 Anion gap [Moles/Vol] 9 mmol/L 5- [facility] Automated lymphocyte count a s percentage of total leukocytesOrdered By: Waqas Hart on 12-30-2024 Lymphocytes/100 WBC Auto (Unsp spec) 32.5 % 19-41 [facility] BUN/creatinine ratioOrdered By: Waqas Hart on 12-30-2024 Urea nitrogen/Creatinine [Mass ratio] 16.3 mg/mg 10-20 [facility] Basophil percentageOrdered B y: Waqas Hart on 12-30-2024 Basophils/100 WBC (Bld) 0.6 % 0-1 [facility] Bilirubin Test strip Ql (U)O rdered By: Waqas Hart on 12-30-2024 Bilirubin Ql (U) Negative Negative [facility] Bilirubin, totalOrdered By: Waqas Hart on 12-30-2024 Bilirubin [Mass/Vol] 0.30 mg/dL 0.00-1.30 [facility] CBC W/Diff, Automatedon 12-07 Absolute Lymph 2.64 X10 3/uL Normal 0.83-4.51 [facility] Comment on above: Performed By: #### L 500.2500, L501.5477, L100.0100 #### [facility] [place], [place], [id number] Absolute Neut 4.7 X10 3/uL Normal 2.0-7.7 [facility] Comment on above: Performed By: #### L 500.2500, L501.5425, L100.0100 #### [facility] [address] [place], [address] Basophils/100 WBC (Bld) 0.6 % Normal 0-1 [facility] Comment on above: Performed By: #### L 500.2500, L501.5425, L100.0100 #### [facility] [address] [place], [address] Eosinophils/100 WBC (Bld) 1.7 % Normal 0-5 [facility] Comment on above: Performed By: #### L 500.2500, L501.5425, L100.0100 #### [facility] [address] [place], [address] Erythrocyte distribution width (RBC) [Ratio] 13.1 % Normal 11.6-14.6 [facility] Comment on above: Performed By: #### L 500.2500, L501.5425, L100.0100 #### [facility] [facility] [address] [place], [address] Hematocrit (Bld) [Volume fraction] 41.1 % Normal 37-47 [facility] Comment on above: Performed By: #### L 500.2500, L501.5425, L100.0100 #### [facility] [address] [place], [address] Hemoglobin (Bld) [Mass/Vol] 13.2 g/dL Normal 12.0-15.0 [facility] Comment on above: Performed By: #### L 500.2500, L501.5425, L100.0100 #### [facility] [address] [place], [address] IG% 0.400 Normal 0.0-0.9 [facility] Comment on above: Result Comment: IG% - Immature Granulocytes (promyelocytes, myelocytes and metamyelocytes) > 1% indicates that a LEFT SHIFT is Present. Performed By: #### L 500.2500, L501.5425, L100.0100 #### [facility] [address] [place], [address] Lymphocytes/100 WBC (Bld) 32.5 % Normal 19-41 [facility] Comment on above: Performed By: #### L 500.2500, L501.5425, L100.0100 #### [facility] [address] [place], [address] MCH (RBC) [Entitic mass] 31.7 pg Normal 27.0-32.0 [facility] Comment on above: Performed By: #### L 500.2500, L501.5425, L100.0100 #### [facility] [address] [place], [address] MCHC (RBC) [Mass/Vol] 32.1 g/dL Normal 32-36 [facility] Comment on above: Performed By: #### L 500.2500, L501.5425, L100.0100 #### [facility] [address] [place], [address] MCV (RBC) [Entitic vol] 98.6 fL Normal 81-99 [facility] Comment on above: Performed By: #### L 500.2500, L501.5425, L100.0100 #### [facility] [address] [place], [address] Monocytes/100 WBC (Bld) 6.9 % Normal 0-10 [facility] Comment on above: Performed By: #### L 500.2500, L501.5425, L100.0100 #### [facility] [address] [place], [address] Neutrophils/100 WBC (Bld) 57.9 % Normal 47-70 [facility] Comment on above: Performed By: #### L 500.2500, L501.5425, L100.0100 #### [facility] [address] [place], [address] Nucleated RBC (Bld) [#/Vol] 0 10*3/uL Normal 0-5 [facility] Comment on above: Performed By: #### L 500.2500, L501.5425, L100.0100 #### [facility] [address] [place], [address] Platelet mean volume (Bld) [Entitic vol] 9.7 fL Normal 6.2-12.0 [facility] Comment on above: Performed By: #### L 500.2500, L501.5425, L100.0100 #### [facility] [address] [place], [address] Platelets (Bld) [#/Vol] 208 10*3/uL Normal 150-450 [facility] Comment on above: Performed By: #### L 500.2500, L501.5425, L100.0100 #### [facility] [address] [place], [address] RBC (Bld) [#/Vol] 4.17 10*6/uL Low 4.2-5.4 [facility] Comment on above: Performed By: #### L 500.2500, L501.5425, L100.0100 #### [facility] [address] [place], [address] RDW SD 47.3 fl High 35.1-43.9 [facility] Comment on above: Performed By: #### L 500.2500, L501.5425, L100.0100 #### [facility] [address] [place], [address] WBC (Bld) [#/Vol] 8.1 10*3/uL Normal 4.4-11.0 [facility] Comment on above: Performed By: #### L 500.2500, L501.5425, L100.0100 #### [facility] [address] [place], [address] [facility] MARCIA MASCORRO ([id number]) 1955 F CHT Date Time Provider Department 12/30/24 GABRIEL GALVAN INTMWS During your visit today, we recorded the following information about you: Elsy Sanz RN 12/30/2024 2:46 PM Signed Patient calling in and states there was an issue with her transportation for her appt today with provider MANDIE Motta. Patient requested to schedule another appt. Appt made for 01/02/25. Elsy Sanz RN Allergies As of Date: 12/30/2024 Noted Allergy Reaction CONTRAST DYE (IODINE) 12/20/2023 10 - Anaphylaxis Date Reviewed: 09/14/2024 Reviewed by: Melissa Leon LPN - Fully Assessed Reason for Visit: Patient Request [[id number]] Prescriptions as of 12/30/2024 - albuterol-budesonide HFA (AIRSUPRA) 90-80 mcg/actuation inhaler Inhale 2 Puffs as instructed every 2 hours as needed for wheezing/shortness of breath. Do not take more than 12 inhalations in a 24 hour period. - Bisacodyl (DULCOLAX) 5 mg tab Take 1 tablet by mouth once daily as needed for constipation. - DULoxetine (CYMBALTA) 30 mg capsule Take 1 capsule by mouth once daily. - sucralfate (CARAFATE) 100 mg/mL suspension Take 10 mL by mouth four times daily. (take prior to meals and at bedtime) - promethazine (PHENERGAN) 25 mg tablet Take 1 tablet by mouth every 6 hours as needed. - spironolactone (ALDACTONE) 25 mg tablet Take 1 tablet by mouth once daily. - polyethylene glycol 3350 (MIRALAX) 17 gram/dose powder Take 17 g by mouth once daily. Dissolve dose in 4 - 8 ounces of liquid and take as directed. - omeprazole (PRILOSEC) 40 mg capsule Take 1 capsule by mouth once daily. - Nutritional Supplements (OPTIMENTAL) liqd Take 237 mL by mouth once daily. Okay with what insurance covers - Diaper,Brief, Adult,Disposable (DEPEND EASY FIT UNDERGARMENTS) Size Large pull up. Change depends once every 1-2 hrs. Dx incontinence (788.30) Prolapsed bladder (618.01) - atorvastatin (LIPITOR) 40 mg tablet Take 1 tablet by mouth daily at bedtime. - senna-docusate (SENNA PLUS) 8.6-50 mg per tablet Take 1 tablet by mouth every morning AND 1 tablet daily at bedtime. - tiotropium bromide (SPIRIVA RESPIMAT) 2.5 mcg/actuation inhaler Inhale 2 Puffs as instructed once daily. Inhale two puffs once daily. - sodium phosphate-sodium bisphosphate (FLEET) enema 133 mL by RECTAL route as needed for constipation. - ondansetron (ZOFRAN) 4 mg tablet Take 1 tablet by mouth every 8 hours as needed for nausea/vomiting. - magnesium hydroxide (MILK OF MAGNESIA) 400 mg/5 mL suspension Take 30 mL by mouth once daily as needed for constipation. - lisinopril (ZESTRIL) 5 mg tablet Take 1 tablet by mouth once daily. - gabapentin (NEURONTIN) 400 mg capsule Take 1 capsule by mouth three times a day for 180 days. - furosemide (LASIX) 20 mg tablet Take 1 tablet by mouth two times a day. - clopidogrel (PLAVIX) 75 mg tablet Take 1 tablet by mouth once daily. - Cholecalciferol, Vitamin D3, 125 mcg (5,000 unit) cap Take 1 capsule by mouth once daily. - carvedilol (COREG) 6.25 mg tablet Take 1 tablet by mouth two times a day with meals. - benzonatate (TESSALON PERLES) 100 mg capsule Take 1 capsule by mouth three times a day as needed for cough. - melatonin 10 mg tab Take 1 tablet by mouth at bedtime as needed for insomnia. - oxyCODONE myristate (XTAMPZA ER) 27 mg CSpT Take 1 capsule by mouth two times a day. - acetaminophen (TYLENOL) 650 mg suppository 650 mg by RECTAL route every 4 hours as needed. - acetaminophen (TYLENOL) 325 mg tablet Take 650 mg by mouth every 4 hours as needed. - aluminum-magnesium hydroxide-simethicone (MAALOX,MYLANTA,MAG-AL PLUS) 200-200-20 mg/5 mL suspension Take 30 mL by mouth as needed. Problem List As Of Date 12/30/2024 Noted Resolved Essential hypertension, benign [I10] Lumbago [M54.50] 12/30/2005 Symptomatic menopausal or female climacteric st*12/30/2005 Anxiety [F41.9] Depression [F32.A] GERD (gastroesophageal reflux disease) [K21.9] Chronic pain [G89.29] COPD with exacerbation (HCC) [J44.1] 12/07/2023 Routine gynecological examination [Z01.419] 06/05/2014 09/23/2022 Well adult exam [Z00.00] 06/05/2014 09/23/2022 Stress incontinence, female [N39.3] 07/07/2014 Mixed hyperlipidemia [E78.2] 07/10/2014 Bladder prolapse, female, acquired [N81.10] 10/04/2014 Diverticulosis [K57.90] 03/20/2015 Smoker [F17.200] 12/28/2015 Epigastric pain [R10.13] 04/16/2016 04/16/2016 Colon cancer screening [Z12.11] 04/16/2016 04/16/2016 Retana's esophagus [K22.70] 08/21/2016 RUQ pain [R10.11] 08/21/2016 12/07/2023 Visual disturbances [H53.9] 08/21/2016 Near syncope [R55] 08/21/2016 09/23/2022 Heart palpitations [R00.2] 09/29/2016 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 Normal [facility] Carbon dioxide, total [Moles /volume] in Central venous bloodOrdered By: Waqas Hart on 12-30-2024 CO2 [Moles/Vol] 29.7 mmol/L 21.0-32.0 [facility] Chest 1 View (Portable)on Chest 1 View (Portable) [facility] Imaging Services [address] [facility] [place], [place] [address] Chest 1 View (Portable) MR#: [id number] Acct: [id number] Name: MARCIA MASCORRO Rep #: [id number] : 1955 F 69 From: Shelton Gandhi MD PCP: Dr. Gabriel Galvan MD Status: REG ER Study: Chest 1 View (Portable) Date of Exam: 12/30/24 Exam# [id number] Ordering Dr: Waqas Hart MD PROCEDURE: CHEST 1 VIEW (PORTABLE) 12/30/2024 REASON FOR EXAM: COPD TECHNIQUE: Frontal view of the chest. COMPARISON: 12/20/2024 FINDINGS: Hardware: None Heart: Heart size is moderately enlarged. Lungs: The lungs are clear. Bones: The bones are unremarkable. Other: RAD/Chest 1 View (Portable) IMPRESSION: No Acute Findings. Reading Location: [id number] CC: Dr. Waqas Hart MD; Dr. Gabriel Galvan MD Service Consultant: Signed Normal [facility] Chloride assayOrdered By: Kiet Hart on 12-30-2024 Chloride [Moles/Vol] 103 mmol/L 98-108 [facility] Comprehensive Metabolic Prof ilon 12-30-2024 Albumin [Mass/Vol] 3.8 g/dL Normal 3.4-4.8 [facility] Comment on above: Performed By: #### L 500.2500, L501.5425, L100.0100 #### [facility] [address] [place], [address] Albumin/Globulin [Mass ratio] 1.3 {ratio} Normal 0.9-2.4 [facility] Comment on above: Performed By: #### L 500.2500, L501.5425, L100.0100 #### [facility] [address] [place], [address] ALK PHOS 97 U/L Normal 35-104 [facility] Comment on above: Performed By: #### L 500.2500, L501.5425, L100.0100 #### [facility] [address] [place], [address] ALT [Catalytic activity/Vol] 6 U/L Normal <=34 [facility] Comment on above: Performed By: #### L 500.2500, L501.5425, L100.0100 #### [facility] [address] [place], [address] AST [Catalytic activity/Vol] 16 U/L Normal <=31 [facility] Comment on above: Performed By: #### L 500.2500, L501.5425, L100.0100 #### [facility] [address] [place], [address] Bilirubin [Mass/Vol] 0.30 mg/dL Normal 0.00-1.30 [facility] Comment on above: Performed By: #### L 500.2500, L501.5425, L100.0100 #### [facility] [address] [place], [address] BUN/CRE 16.3 RATIO Normal 10-20 [facility] Comment on above: Performed By: #### L 500.2500, L501.5425, L100.0100 #### [facility] [address] [place], [address] Calcium [Mass/Vol] 9.5 mg/dL Normal 7.6-11.0 [facility] Comment on above: Performed By: #### L 500.2500, L501.5425, L100.0100 #### [facility] [address] [place], [address] Chloride [Moles/Vol] 103 mmol/L Normal 98-108 [facility] Comment on above: Performed By: #### L 500.2500, L501.5425, L100.0100 #### [facility] [address] [place], [address] CO2 [Moles/Vol] 29.7 mmol/L Normal 21.0-32.0 [facility] Comment on above: Performed By: #### L 500.2500, L501.5425, L100.0100 #### [facility] [address] [place], [address] Creatinine [Mass/Vol] 0.84 mg/dL Normal 0.70-1.20 [facility] Comment on above: Performed By: #### L 500.2500, L501.5425, L100.0100 #### [facility] [address] [place], [address] ECRCL 62.99 ml/min Normal 50-250 [facility] Comment on above: Performed By: #### L 500.2500, L501.5425, L100.0100 #### [facility] [address] [place], [address] GAP 9 Normal 5-15 [facility] Comment on above: Performed By: #### L 500.2500, L501.5425, L100.0100 #### [facility] [address] [place], [address] GFR/1.73 sq M.predicted among non-blacks MDRD (S/P/Bld) [Vol rate/Area] 76 mL/min/{1.73_m2} Normal >60 [facility] Comment on above: Result Comment: mL/m in/1.73m2 CKD-EPI Creatinine Equation (2020) Performed By: #### L 500.2500, L501.5425, L100.0100 #### [facility] [address] [place], [address] Globulin (S) [Mass/Vol] 2.9 g/dL Normal 2.2-4.2 [facility] Comment on above: Performed By: #### L 500.2500, L501.5425, L100.0100 #### [facility] [address] [place], [address] Glucose [Mass/Vol] 99 mg/dL Normal 70-99 [facility] Comment on above: Performed By: #### L 500.2500, L501.5425, L100.0100 #### [facility] [address] [place], [address] Potassium [Moles/Vol] 3.7 mmol/L Normal 3.3-5.1 [facility] Comment on above: Performed By: #### L 500.2500, L501.5425, L100.0100 #### [facility] [address] [place], [address] Sodium [Moles/Vol] 142 mmol/L Normal 133-145 [facility] Comment on above: Performed By: #### L 500.2500, L501.5425, L100.0100 #### [facility] [address] [place], [address] T PROT 6.8 g/dL Normal 5.9-8.4 [facility] Comment on above: Performed By: #### L 500.2500, L501.5425, L100.0100 #### [facility] [address] [place], [address] Urea nitrogen [Mass/Vol] 14 mg/dL Normal 4-19 [facility] Comment on above: Performed By: #### L 500.2500, L501.5425, L100.0100 #### [facility] [address] [place], [address] Emergency Department Summary on 12-30-2024 Emergency Department Summary [facility] Medical Records Department [address] [place] [address] Emergency Department Summary 12/30/24 MR#: [id number] Acct: [id number] Name: MARCIA MASCORRO Rep #: [id number] : 1955 69 From: Waqas Hart MD PCP: Dr. Gabriel Galvan MD Status:REG ER Location: ED HPI HPI - GI History of Present Illness Chief Complaint: Abd Pain Narrative Narrative: 69-year-old female past medical history of COPD presents with left upper quadrant abdominal pain that she has had over the last month. She states that she was seen in the emergency department a few weeks to over a month ago. She was seen for different reason but states that she has had left upper quadrant abdominal pain. Sometimes is sharp and stabbing. She has history of Retana's esophagus as well. She denies any fever but states she has had chills, no exacerbating or alleviating factors. No dysuria or hematuria. No problems with bowel movements. She states that she has this pain that she has had for quite some time. [facility] Medical History Chronic pain Kidney disease Asthma Irregular heart beat Congestive heart failure (CHF) TIA (transient ischemic attack) Wears glasses Post-menopausal Arthritis History of renal disease High cholesterol DVT (deep venous thrombosis) Easy bruising Excessive bleeding Back pain Injury of back History of ulceration Difficulty chewing Gastric reflux Shortness of breath on exertion Hoarseness Chronic cough Leg cramps History of pain when walking History of edema History of echocardiogram History of stress test Cardiology follow-up encounter History of CHF (congestive heart failure) History of irregular heartbeat Chest pain Bullous emphysema COPD with asthma Esophagitis, unspecified without bleeding Unspecified combined 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 Other chronic pain Elevated troponin Sustained SVT Depression Osteoporosis Kidney stones Smoker Myocardial infarct History of non-ST elevation myocardial infarction (NSTEMI) (09/01/21) Essential hypertension Old anterior wall myocardial infarction Ischemic cardiomyopathy Opiate dependence Anxiety and depression TIA (transient ischemic attack) Obesity (BMI 30.0-34.9) EVELYN (obstructive sleep apnea) Personal history of transient ischemic attack (TIA), and cerebral infarction without residual deficits COPD (chronic obstructive pulmonary disease) Calculus of left kidney GERD (gastroesophageal reflux disease) Hyperlipidemia Atherosclerotic heart disease of [place] coronary artery without angina pectoris Tobacco abuse Home Medications ???Medication ???Instructions ???Recorded ???Last Taken ???Type inhalational spacing device #1 ea 02/17/23 Unknown Rx (Aerochamber MV spacer) tiotropium bromide 2.5 2 puff inhalation DAILY #4 grams 0 02/17/23 09/27/24 Rx mcg/actuation mist for inhalation (Spiriva Respimat) lorazepam 1 mg tablet (Ativan) 1 mg PO TID PRN anxiety 07/16/23 0 09/27/24 History gabapentin 400 mg capsule 400 mg PO Q6H 07/29/23 09/27/24 Hi story nitroglycerin 0.4 mg sublingual 0.4 mg buccal Q5M PRN chest pain 1 09/28/22 Unknown History tablet sucralfate 1 gram tablet 1 g PO Q8H 07/29/23 09/27/24 Histo ry melatonin 3 mg capsule 3 mg PO QHS 09/05/23 09/27/24 Hist ory albuterol 90 mcg-budesonide 80 1 - 2 inh inhalation BID PRN 09/2809/27/24 History mcg/actuation HFA aerosol inhaler shortness of breath (Airsupra) atorvastatin 40 mg tablet 40 mg PO QHS 09/28/24 09/27/24 His tory bisacodyl 5 mg tablet,delayed 5 mg PO DAILY PRN constipation Unknown History release cholecalciferol (vitamin D3) 125 125 mcg PO DAILY 09/28/24 09/27/24 History mcg (5,000 unit) capsule hydrocodone-acetaminophen 5-325mg 1 tab PO Q4H 09/28/24 09/27/24 Hi story 5mg-325mg lisinopril 5 mg tablet 5 mg PO DAILY 09/28/24 09/27/24 Hi story oxycodone myristate 18 mg capsule 18 mg PO BID 09/28/24 09/27/24 Hi story sprinkle extended release 12hr(DON'T CRUSH) (Xtampza ER) polyethylene glycol 3350 17 17 g PO BID 09/28/24 09/27/24 Hist ory gram/dose oral powder promethazine 25 mg tablet 25 mg PO PRN PRN nausea and Unknown History vomiting budesonide-formoterol HFA 160 1 puff inhalation BID #10.2 grams 09/30/24 Unknown Rx mcg-4.5 mcg/actuation aerosol inhaler (Symbicort) carvedilol 25 mg tablet 25 mg PO BID #120 tabs 10/04/24 Un known Rx furosemide 40 mg tablet 40 mg PO QDAY #90 tabs 10/04/24 Un known Rx Allergy/AdvReac Type Severity Reaction Status Date / Time No Known Allergies Allergy Verified 12/30/24 18:22 Family History Mother Hypertension (more content not included)... Normal [facility] Eosinophil percentageOrdered By: Waqas Hart on 12-30-2024 Eosinophils/100 WBC (Bld) 1.7 % 0-5 [facility] Epithelial cells.squamous LM Ql (Urine sed)Ordered By: Waqas Hart on 12-30-2024 Epithelial cells.squamous LM.HPF (Urine sed) [#/Area] 0 /[HPF] 5-10 [facility] Erythrocyte distribution wid th (RBC) [Ratio]Ordered By: Waqas Hart on 12-30-2024 Erythrocyte distribution width (RBC) [Entitic vol] 47.3 fL High 35.1-43.9 [facility] Erythrocyte distribution wid th ratioOrdered By: Waqas Hart on 12-30-2024 Erythrocyte distribution width (RBC) [Ratio] 13.1 % 11.6-14.6 [facility] Erythrocyte distribution wid th standard deviationOrdered By: Waqas Hart on 12-30-2024 Erythrocyte distribution width (RBC) [Ratio] 47.3 fl High 35.1-43.9 [facility] Estimation of creatinine pietro aranceOrdered By: Waqas Hart on 12-30-2024 Estimated Creatinine Clearance Calc 62.99 ml/min 50-250 [facility] GFR/1.73 sq M.predicted gabbi g non-blacks MDRD (S/P/Bld) [Vol rate/Area]Ordered By: Waqas Hart on 12-30-2024 Estimated GFR (MDRD) Non-Af Amer 76 >60 [facility] Comment on above: mL/min/1.73m2 CKD-EP I Creatinine Equation (2020) Glomerular filtration rate ( GFR) estimation/1.73 sq m using serum, plasma, or whole bOrdered By: Waqas Hart on 12-30-2024 GFR/1.73 sq M.predicted among non-blacks MDRD (S/P/Bld) [Vol rate/Area] 76 mL/min/{1.73_m2} >60 [facility] Glucose Ql (U)Ordered By: Kiet Hart on 12-30-2024 Urine Glucose (UA) Normal mg/dl Normal [facility] Hematocrit Auto (Bld) [Volum e fraction]Ordered By: Waqas Hart on 12-30-2024 Hematocrit (Bld) [Volume fraction] 41.1 % 37-47 [facility] Hemoglobin measurementOrdere d By: Waqas Hart on 12-30-2024 Hemoglobin (Bld) [Mass/Vol] 13.2 g/dL 12.0-15.0 [facility] Immature granulocytes/100 WB C Auto (Bld)Ordered By: Waqas Hart on 12-30-2024 Immature granulocytes/100 WBC (Bld) 0.400 % 0.0-0.9 [facility] Comment on above: IG% - Immature Granu locytes (promyelocytes, myelocytes and metamyelocytes) > 1% indicates that a LEFT SHIFT is Present. Ketones Test strip Ql (U)Ord ered By: Waqas Hart on 12-30-2024 Ketones Ql (U) Negative Negative [facility] - Chemistry and C hemistry - challengeOrdered By: Waqas Hart on 12-30-2024 AST [Catalytic activity/Vol] 16 U/L <32 [facility] Lipaseon 12-30-2024 Lipase [Catalytic activity/Vol] 13 U/L Normal 13-75 [facility] Comment on above: Result Comment: Kelvin duque note: LIPASE revised reference range effective 22. New Lipase methodology. Expected to produce lower values than the previous assay method. NEW Reference Range: 13 - 75 U/L Performed By: #### L 500.2500, L501.5425, L100.0100 #### [facility] [address] [place], [address] Lipase measurementOrdered By : Waqas Hart on 12-30-2024 Lipase [Catalytic activity/Vol] 13 U/L 13-75 [facility] Comment on above: Please note:LIPASE r evised reference range effective 22. New Lipase methodology. Expected to produce lower values than the previous assay method. NEW Reference Range: 13 - 75 U/L Lymphocytes Auto (Unsp spec) [#/Vol]Ordered By: aWqas Hart on 12-30-2024 Lymphocytes (Bld) [#/Vol] 2.64 10*3/uL 0.83-4.51 [facility] Lymphocytes/100 WBC Auto (Un sp spec)Ordered By: Waqas Hart on 12-30-2024 Lymphocytes/100 WBC (Bld) 32.5 % 19-41 [facility] MCV (mean corpuscular volume ) determinationOrdered By: Waqas Hart on 12-30-2024 MCV (RBC) [Entitic vol] 98.6 fL 81-99 [facility] Mean corpuscular hemoglobin (MCH) determinationOrdered By: Waqas Hart on 12-30-2024 MCH (RBC) [Entitic mass] 31.7 pg 27.0-32.0 [facility] Mean corpuscular hemoglobin concentration (MCHC) determinationOrdered By: Waqas Hart on 12-30-2024 MCHC (RBC) [Mass/Vol] 32.1 g/dL 32-36 [facility] Mean platelet volume determi nationOrdered By: Waqas Hart on 12-30-2024 Platelet mean volume (Bld) [Entitic vol] 9.7 fL 6.2-12.0 [facility] Microscopic analysis of urin e for red blood cells (RBC)Ordered By: Waqas Hart on 12-30-2024 Urine RBC 0-5 SEEN /hpf 0-5 [facility] Monocyte percentageOrdered B y: Waqas Hart on 12-30-2024 Monocytes/100 WBC (Bld) 6.9 % 0-10 [facility] Mucus LM Ql (Urine sed)Order ed By: Waqas Hart on 12-30-2024 Mucus Ql (Urine sed) 0 SEEN /hpf [facility] Neutrophil percentageOrdered By: Waqas Hart on 12-30-2024 Neutrophils/100 WBC (Bld) 57.9 % 47-70 [facility] Nitrite Test strip Ql (U)Ord ered By: Waqas Hart on 12-30-2024 Nitrite Ql (U) Negative Negative [facility] No Panel InformationOrdered By: Waqas Hart on 12-30-2024 16 U/L <32 [facility] Nucleated red blood cell per centageOrdered By: Waqas Hart on 12-30-2024 Nucleated RBC/100 WBC (Bld) [Ratio] 0 % 0-5 [facility] Platelet countOrdered By: Kiet Hart on 12-30-2024 Platelets (Bld) [#/Vol] 208 10*3/uL 150-450 [facility] Potassium (Unsp spec) [Mass/ Vol]Ordered By: Waqas Hart on 12-30-2024 Potassium [Moles/Vol] 3.7 mmol/L 3.3-5.1 [facility] Potassium measurement (mass/ volume)Ordered By: Waqas Hart on 12-30-2024 Potassium (Unsp spec) [Mass/Vol] 3.7 mmol/L 3.3-5.1 [facility] Protein Test strip Ql (U)Ord ered By: Waqas Hart on 12-30-2024 Protein Ql (U) 30 mg/dl High Negative [facility] RBC Auto (Bld) [#/Vol]Ordere d By: Waqas Hart on 12-30-2024 RBC (Bld) [#/Vol] 4.17 10*6/uL Low 4.2-5.4 [facility] Serum creatinine measurement (mass/volume)Ordered By: Waqas Hart on 12-30-2024 Creatinine [Mass/Vol] 0.84 mg/dL 0.70-1.20 [facility] Serum globulin measurementOr dered By: Waqas Hart on 12-30-2024 Globulin (S) [Mass/Vol] 2.9 g/dL 2.2-4.2 [facility] Serum glucose measurement (m ass/volume)Ordered By: Waqas Hart on 12-30-2024 Glucose [Mass/Vol] 99 mg/dL 70-99 [facility] Serum or plasma alanine smith otransferase (ALT) measurementOrdered By: Waqas Hart on 12-30-2024 ALT [Catalytic activity/Vol] 6 U/L <35 [facility] Serum or plasma albumin areli urement (mass/volume)Ordered By: Waqas Hart on 12-30-2024 Albumin [Mass/Vol] 3.8 g/dL 3.4-4.8 [facility] Serum or plasma albumin/glob ulin mass ratioOrdered By: Waqas Hart on 12-30-2024 Albumin/Globulin [Mass ratio] 1.3 {ratio} 0.9-2.4 [facility] Serum or plasma alkaline abimael sphatase measurementOrdered By: Waqas Hart on 12-30-2024 ALP [Catalytic activity/Vol] 97 U/L 35-104 [facility] Serum or plasma calcium areli urement (mass/volume)Ordered By: Waqas Hart on 12-30-2024 Calcium [Mass/Vol] 9.5 mg/dL 7.6-11.0 [facility] Serum or plasma urea nitroge n measurement (mass/volume)Ordered By: Waqas Hart on 12-30-2024 Urea nitrogen [Mass/Vol] 14 mg/dL 4-19 [facility] Sodium levelOrdered By: Waqas Hart on 12-30-2024 Sodium [Moles/Vol] 142 mmol/L 133-145 [facility] Squamous epithelial cells de tection in urine sediment by light microscopyOrdered By: Waqas Hart on 12-30-2024 Epithelial cells.squamous LM Ql (Urine sed) 0 SEEN /hpf 5-10 [facility] Total proteinOrdered By: Rufino Hart on 12-30-2024 Protein [Mass/Vol] 6.8 g/dL 5.9-8.4 [facility] Urinalysis, Completeon 12-30 RBC 0-5 SEEN Normal 0-5 [facility] Comment on above: Order Comment: 1 Y Performed By: #### L 500.2500, L501.5425, L100.0100 #### [facility] [address] [place], [address] WBC 0-5 SEEN Normal 0-5 [facility] Comment on above: Order Comment: 1 Y Performed By: #### L 500.2500, L501.5425, L100.0100 #### [facility] [address] [place], [address] BACTERIA 0 SEEN Normal None Seen [facility] Comment on above: Order Comment: 1 Y Performed By: #### L 500.2500, L501.5425, L100.0100 #### [facility] [address] [place], [address] EPI,SQUAMOUS 0 SEEN Normal 5-10 [facility] Comment on above: Order Comment: 1 Y Performed By: #### L 500.2500, L501.5425, L100.0100 #### [facility] [address] [place], [address] Mucus Ql (Urine sed) 0 SEEN Normal [facility] Comment on above: Order Comment: 1 Y Performed By: #### L 500.2500, L501.5425, L100.0100 #### [facility] [address] [place], [address] Urine blood detectionOrdered By: Waqas Hart on 12-30-2024 Urine Occult Blood Negative Negative [facility] Urine clarityOrdered By: Rufino Hart on 12-30-2024 Clarity (U) Clear Clear [facility] Urine color determinationOrd ered By: Waqas Hart on 12-30-2024 Color (U) Yellow Yellow [facility] Urine glucose detectionOrder ed By: Waqas Hart on 12-30-2024 Glucose Ql (U) Normal mg/dl Normal [facility] Urine leukocyte esterase det ection by dipstickOrdered By: Waqas Hart on 12-30-2024 Leukocyte esterase Test strip Ql (U) 25 /ul High Negative [facility] Urine pHOrdered By: Waqas grullon on 12-30-2024 pH (U) 6.0 [pH] 5.0 - 8.0 [facility] Urine sediment bacteria coun t by microscopy (number/high power field)Ordered By: Waqas Hart on 12-30-2024 Bacteria LM.HPF (Urine sed) [#/Area] 0 /[HPF] None Seen [facility] Urine specific gravity measu rementOrdered By: Waqas Hart on 12-30-2024 Specific gravity (U) [Rel density] 1.020 1.002-1.03 0 [facility] Urine urobilinogen measureme ntOrdered By: Waqas Hart on 12-30-2024 Urobilinogen Ql (U) Normal mg/dl Normal [facility] Urobilinogen Ql (U)Ordered B y: Waqas Hart on 12-30-2024 Urine Urobilinogen Normal mg/dl Normal [facility] White blood cell (WBC) count Ordered By: Waqas Hart on 12-30-2024 WBC (Bld) [#/Vol] 8.1 10*3/uL 4.4-11.0 [facility] White blood cell countOrdere d By: Waqas Hart on 12-30-2024 Urine WBC 0-5 SEEN /hpf 0-5 [facility] White blood cell count 0-5 SEEN /hpf 0-5 [facility] 12 Lead EKGon 12-20-2024 12 Lead EKG [facility] Cardi[facility] Services [address] [place] [address] 12 Lead EKG 12/20/24 1515 MR#: [id number] Acct: [id number] Name: MARCIA MASCORRO Rep #: [id number] : 1955 69 From: Nery Ann MD Attending Dr: Status: DEP ER Ordering Dr: Waqas Hart MD Date: 12/20/24 Location: ED Sex: F C Admitted: Test Reason : CP Blood Pressure : */* mmHG Vent. Rate : 69 BPM Atrial Rate : 69 BPM P-R Int : 136 ms QRS Dur : 96 ms QT Int : 374 ms P-R-T Axes : 60 29 83 degrees QTcB Int : 400 ms Normal sinus rhythm Cannot rule out Inferior infarct , age undetermined Cannot rule out Anteroseptal infarct , age undetermined Abnormal ECG Confirmed by Nery Ann ([id number]), web content editor MICAH SALMERON ([id number]) on 12/23/2024 6:46:46 AM Referred By: Confirmed By: Nery Ann 12/23/24 0646 Date Nery Ann MD CC: Dr. Waqas Hart MD; Dr. Gabriel Glavan MD Signed Normal [facility] Absolute lymphocyte countOrd ered By: ED PROVIDER on 12-20-2024 Lymphocytes Auto (Unsp spec) [#/Vol] 1.79 10*3/uL 0.83-4.51 [facility] Absolute neutrophil countOrd ered By: ED PROVIDER on 12-20-2024 Neutrophils (Bld) [#/Vol] 2.6 10*3/uL 2.0-7.7 [facility] Anion gap in Serum or Plasma Ordered By: ED PROVIDER on 12-20-2024 Anion gap [Moles/Vol] 8 mmol/L 01-19 [facility] Automated lymphocyte count a s percentage of total leukocytesOrdered By: ED PROVIDER on 12-20-2024 Lymphocytes/100 WBC Auto (Unsp spec) 35.8 % [facility] BUN/creatinine ratioOrdered By: ED PROVIDER on 12-20-2024 Urea nitrogen/Creatinine [Mass ratio] 11.7 mg/mg - [facility] Basic Metabolic Profile (BMP )on 12-20-2024 BUN/CRE 11.7 RATIO Normal 06-26 [facility] Comment on above: Performed By: #### L 500.2500, L501.4021, L100.0100 ####[facility] [address] [place], [address] Calcium [Mass/Vol] 9.6 mg/dL Normal 7.6-11.0 [facility] Comment on above: Performed By: #### L 500.2500, L501.4021, L100.0100 ####[facility] [address] [place], [address] Chloride [Moles/Vol] 102 mmol/L Normal 98-108 [facility] Comment on above: Performed By: #### L 500.2500, L501.4021, L100.0100 ####[facility] [address] [place], [address] CO2 [Moles/Vol] 30.9 mmol/L Normal 21.0-32.0 [facility] Comment on above: Performed By: #### L 500.2500, L501.4021, L100.0100 ####[facility] [address] [place], [address] Creatinine [Mass/Vol] 0.78 mg/dL Normal 0.70-1.20 [facility] Comment on above: Performed By: #### L 500.2500, L501.4021, L100.0100 ####[facility] [address] [place], [address] GAP 8 Normal 5-15 [facility] Comment on above: Performed By: #### L 500.2500, L501.4021, L100.0100 ####[facility] [address] [place], [address] GFR/1.73 sq M.predicted among non-blacks MDRD (S/P/Bld) [Vol rate/Area] 83 mL/min/{1.73_m2} Normal >60 [facility] Comment on above: Result Comment: mL/m in/1.73m2 CKD-EPI Creatinine Equation (2020) Performed By: #### L 500.2500, L501.4021, L100.0100 ####[facility] [address] [place], [address] Glucose [Mass/Vol] 117 mg/dL High 70-99 [facility] Comment on above: Performed By: #### L 500.2500, L501.4021, L100.0100 ####[facility] [address] [place], [address] Potassium [Moles/Vol] 4.3 mmol/L Normal 3.3-5.1 [facility] Comment on above: Performed By: #### L 500.2500, L501.4021, L100.0100 ####[facility] [address] [place], [address] Sodium [Moles/Vol] 141 mmol/L Normal 133-145 [facility] Comment on above: Performed By: #### L 500.2500, L501.4021, L100.0100 ####[facility] [address] [place], [address] Urea nitrogen [Mass/Vol] 9 mg/dL Normal 4-19 [facility] Comment on above: Performed By: #### L 500.2500, L501.4021, L100.0100 ####[facility] [address] [place], [address] Basophil percentageOrdered B y: ED PROVIDER on 12-20-2024 Basophils/100 WBC (Bld) 0.8 % 0-1 [facility] CBC W/Diff, Automatedon 12-06 Absolute Lymph 1.79 X10 3/uL Normal 0.83-4.51 [facility] Comment on above: Performed By: #### L 500.2500, L501.4021, L100.0100 ####[facility] [address] [place], [address] Absolute Neut 2.6 X10 3/uL Normal 2.0-7.7 [facility] Comment on above: Performed By: #### L 500.2500, L501.4021, L100.0100 ####[facility] [address] [place], [address] Basophils/100 WBC (Bld) 0.8 % Normal 0-1 [facility] Comment on above: Performed By: #### L 500.2500, L501.4021, L100.0100 ####[facility] [address] [place], [address] Eosinophils/100 WBC (Bld) 2.8 % Normal 0-5 [facility] Comment on above: Performed By: #### L 500.2500, L501.4021, L100.0100 ####[facility] [address] [place], [address] Erythrocyte distribution width (RBC) [Ratio] 12.7 % Normal 11.6-14.6 [facility] Comment on above: Performed By: #### L 500.2500, L501.4021, L100.0100 ####[facility] [address] [place], [address] Hematocrit (Bld) [Volume fraction] 39.5 % Normal 37-47 [facility] Comment on above: Performed By: #### L 500.2500, L501.4021, L100.0100 ####[facility] [address] [place], [address] Hemoglobin (Bld) [Mass/Vol] 13.1 g/dL Normal 12.0-15.0 [facility] Comment on above: Performed By: #### L 500.2500, L501.4021, L100.0100 ####[facility] [address] [place], [address] IG% 0.200 Normal 0.0-0.9 [facility] Comment on above: Result Comment: IG% - Immature Granulocytes (promyelocytes, myelocytes and metamyelocytes) > 1% indicates that a LEFT SHIFT is Present. Performed By: #### L 500.2500, L501.4021, L100.0100 ####[facility] [address] [place], [address] Lymphocytes/100 WBC (Bld) 35.8 % Normal 19-41 [facility] Comment on above: Performed By: #### L 500.2500, L501.4021, L100.0100 ####[facility] [address] [place], [address] MCH (RBC) [Entitic mass] 31.6 pg Normal 27.0-32.0 [facility] Comment on above: Performed By: #### L 500.2500, L501.4021, L100.0100 ####[facility] [address] [place], [address] MCHC (RBC) [Mass/Vol] 33.2 g/dL Normal 32-36 [facility] Comment on above: Performed By: #### L 500.2500, L501.4021, L100.0100 ####[facility] [address] [place], [address] MCV (RBC) [Entitic vol] 95.2 fL Normal 81-99 [facility] Comment on above: Performed By: #### L 500.2500, L501.4021, L100.0100 ####[facility] [address] [place], [address] Monocytes/100 WBC (Bld) 7.6 % Normal 0-10 [facility] Comment on above: Performed By: #### L 500.2500, L501.4021, L100.0100 ####[facility] [address] [place], [address] Neutrophils/100 WBC (Bld) 52.8 % Normal 47-70 [facility] Comment on above: Performed By: #### L 500.2500, L501.4021, L100.0100 ####[facility] [address] [place], [address] Nucleated RBC (Bld) [#/Vol] 0 10*3/uL Normal 0-5 [facility] Comment on above: Performed By: #### L 500.2500, L501.4021, L100.0100 ####[facility] [address] [place], [address] Platelet mean volume (Bld) [Entitic vol] 9.4 fL Normal 6.2-12.0 [facility] Comment on above: Performed By: #### L 500.2500, L501.4021, L100.0100 ####[facility] [address] [place], [address] Platelets (Bld) [#/Vol] 183 10*3/uL Normal 150-450 [facility] Comment on above: Performed By: #### L 500.2500, L501.4021, L100.0100 ####[facility] [address] [place], [address] RBC (Bld) [#/Vol] 4.15 10*6/uL Low 4.2-5.4 [facility] Comment on above: Performed By: #### L 500.2500, L501.4021, L100.0100 ####[facility] [address] [place], [address] RDW SD 44.1 fl High 35.1-43.9 [facility] Comment on above: Performed By: #### L 500.2500, L501.4021, L100.0100 ####[facility] [address] [place], [address] WBC (Bld) [#/Vol] 5.0 10*3/uL Normal 4.4-11.0 [facility] Comment on above: Performed By: #### L 500.2500, L501.4021, L100.0100 ####[facility] [address] [place], [place], [address] Carbon dioxide, total [Moles /volume] in Central venous bloodOrdered By: ED PROVIDER on 12-20-2024 CO2 [Moles/Vol] 30.9 mmol/L 21.0-32.0 [facility] Chest 1 View (Portable)on Chest 1 View (Portable) [facility] Imaging Services [address] [place] [address] Chest 1 View (Portable) MR#: [id number] Acct: [id number] Name: MARCIA MASCORRO Rep #: [id number] : 1955 F 69 From: Estefani Bustos MD PCP: Dr. Gabriel Galvan MD Status: REG ER Study: Chest 1 View (Portable) Date of Exam: 12/20/24 Exam# [id number] Ordering Dr: Waqas Hart MD PROCEDURE: CHEST 1 VIEW (PORTABLE) 12/20/2024 REASON FOR EXAM: CHEST PAIN TECHNIQUE: Frontal view of the chest. COMPARISON: 11/04/2024 FINDINGS: Patient is slightly rotated. Heart: Similar cardiomegaly.. Mediastinum: Grossly similar allowing for rotation. Atherosclerosis. Hiatal hernia. Lungs/pleura: Mild vaguely linear RIGHT basilar airspace disease has increased slightly no sizeable pleural effusion or visible pneumothorax. Bones: Unremarkable. Lines and support devices: None. Other: None. RAD/Chest 1 View (Portable) IMPRESSION: 1. Mild vaguely linear RIGHT basilar airspace has increased slightly, atelectasis or early/mild pneumonia. 2. Additional description as above. Reading Location: [id number] CC: Dr. Waqas Hart MD; Dr. Gabriel Galvan MD Service Consultant: Signed Normal [facility] Chloride assayOrdered By: ED PROVIDER on 12-20-2024 Chloride [Moles/Vol] 102 mmol/L 98-108 [facility] Emergency Department Summary on 12-20-2024 Emergency Department Summary [facility] Medical Records Department [address] [place] [address] Emergency Department Summary 12/20/24 MR#: [id number] Acct: [id number] Name: MARCIA MASCORRO Rep #: [id number] : 1955 69 From: Waqas Hart MD PCP: Dr. Gabriel Galvan MD Status:REG ER Location: ED HPI History of Present Illness Chief Complaint: Shortness of Breath Narrative Narrative: 69-year-old female presents with her family because of increasing shortness of breath over the last 2 days. She has a past medical history of COPD and wears oxygen at home. She states she has had to increase her oxygen from 2 L to 3 L, and additionally she reports that yesterday she had a pulse ox in the 70s to 80s. She does continue to smoke cigarettes. Today, she was seen by her pain management doctor and her family was concerned about her breathing issues over the last 2 days so they state that they brought her to the emergency department for evaluation. She denies any fevers or chills but states she has had occasional cough. No leg swelling. She also feels lightheaded. She told triage that she was having chest pain with radiation to the left shoulder as well. [facility] Medical History Chronic pain Kidney disease Asthma Irregular heart beat Congestive heart failure (CHF) TIA (transient ischemic attack) Wears glasses Post-menopausal Arthritis History of renal disease High cholesterol DVT (deep venous thrombosis) Easy bruising Excessive bleeding Back pain Injury of back History of ulceration Difficulty chewing Gastric reflux Shortness of breath on exertion Hoarseness Chronic cough Leg cramps History of pain when walking History of edema History of echocardiogram History of stress test Cardiology follow-up encounter History of CHF (congestive heart failure) History of irregular heartbeat Chest pain Bullous emphysema COPD with asthma Esophagitis, unspecified without bleeding Unspecified combined 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 Other chronic pain Elevated troponin Sustained SVT Depression Osteoporosis Kidney stones Smoker Myocardial infarct History of non-ST elevation myocardial infarction (NSTEMI) (09/01/21) Essential hypertension Old anterior wall myocardial infarction Ischemic cardiomyopathy Opiate dependence Anxiety and depression TIA (transient ischemic attack) Obesity (BMI 30.0-34.9) EVELYN (obstructive sleep apnea) Personal history of transient ischemic attack (TIA), and cerebral infarction without residual deficits COPD (chronic obstructive pulmonary disease) Calculus of left kidney GERD (gastroesophageal reflux disease) Hyperlipidemia Atherosclerotic heart disease of [place] coronary artery without angina pectoris Tobacco abuse Home Medications ???Medication ???Instructions ???Recorded ???Last Taken ???Type inhalational spacing device #1 ea 02/17/23 Unknown Rx (Aerochamber MV spacer) tiotropium bromide 2.5 2 puff inhalation DAILY #4 grams 0 02/17/23 09/27/24 Rx mcg/actuation mist for inhalation (Spiriva Respimat) lorazepam 1 mg tablet (Ativan) 1 mg PO TID PRN anxiety 07/16/23 0 09/27/24 History gabapentin 400 mg capsule 400 mg PO Q6H 07/29/23 09/27/24 Hi story nitroglycerin 0.4 mg sublingual 0.4 mg buccal Q5M PRN chest pain 1 09/28/22 Unknown History tablet sucralfate 1 gram tablet 1 g PO Q8H 07/29/23 09/27/24 Histo ry albuterol sulfate 2.5 mg/3 mL 2.5 mg continuous nebulization Q6H 09/05/23 Unknown History (0.083 %) solution for nebulization PRN shortness of breath or whee zing melatonin 3 mg capsule 3 mg PO QHS 09/05/23 09/27/24 Hist ory albuterol 90 mcg-budesonide 80 1 - 2 inh inhalation BID PRN 09/2809/27/24 History mcg/actuation HFA aerosol inhaler shortness of breath (Airsupra) atorvastatin 40 mg tablet 40 mg PO QHS 09/28/24 09/27/24 His tory bisacodyl 5 mg tablet,delayed 5 mg PO DAILY PRN constipation Unknown History release cholecalciferol (vitamin D3) 125 125 mcg PO DAILY 09/28/24 09/27/24 History mcg (5,000 unit) capsule hydrocodone-acetaminophen 5-325mg 1 tab PO Q4H 09/28/24 09/27/24 Hi story 5mg-325mg lisinopril 5 mg tablet 5 mg PO DAILY 09/28/24 09/27/24 Hi story oxycodone myristate 18 mg capsule 18 mg PO BID 09/28/24 09/27/24 Hi story sprinkle extended release 12hr(DON'T CRUSH) (Xtampza ER) polyethylene glycol 3350 17 17 g PO BID 09/28/24 09/27/24 Hist ory gram/dose oral powder promethazine 25 mg tablet 25 mg PO PRN PRN nausea and Unknown History vomiting albuterol sulfate 90 mcg/actuation 2 puff inhalation Q6H PRN Unknown Rx aerosol inhaler shortness of breath or wheezing #8.5 grams budesonide-formoterol HFA 160 1 puff (more content not included)... Normal [facility] Eosinophil percentageOrdered By: ED PROVIDER on 12-20-2024 Eosinophils/100 WBC (Bld) 2.8 % 0-5 [facility] Erythrocyte distribution wid th (RBC) [Ratio]Ordered By: ED PROVIDER on 12-20-2024 Erythrocyte distribution width (RBC) [Entitic vol] 44.1 fL High 35.1-43.9 [facility] Erythrocyte distribution wid th ratioOrdered By: ED PROVIDER on 12-20-2024 Erythrocyte distribution width (RBC) [Ratio] 12.7 % 11.6-14.6 [facility] Erythrocyte distribution wid th standard deviationOrdered By: ED PROVIDER on 12-20-2024 Erythrocyte distribution width (RBC) [Ratio] 44.1 fl High 35.1-43.9 [facility] GFR/1.73 sq M.predicted gabbi g non-blacks MDRD (S/P/Bld) [Vol rate/Area]Ordered By: ED PROVIDER on 12-20-2024 Estimated GFR (MDRD) Non-Af Amer 83 >60 [facility] Comment on above: mL/min/1.73m2 CKD-EP I Creatinine Equation (2020) Glomerular filtration rate ( GFR) estimation/1.73 sq m using serum, plasma, or whole bOrdered By: ED PROVIDER on 12-20-2024 GFR/1.73 sq M.predicted among non-blacks MDRD (S/P/Bld) [Vol rate/Area] 83 mL/min/{1.73_m2} >60 [facility] Hematocrit Auto (Bld) [Volum e fraction]Ordered By: ED PROVIDER on 12-20-2024 Hematocrit (Bld) [Volume fraction] 39.5 % 37-47 [facility] Hemoglobin measurementOrdere d By: ED PROVIDER on 12-20-2024 Hemoglobin (Bld) [Mass/Vol] 13.1 g/dL 12.0-15.0 [facility] Immature granulocytes/100 WB C Auto (Bld)Ordered By: ED PROVIDER on 12-20-2024 Immature granulocytes/100 WBC (Bld) 0.200 % 0.0-0.9 [facility] Comment on above: IG% - Immature Granu locytes (promyelocytes, myelocytes and metamyelocytes) > 1% indicates that a LEFT SHIFT is Present. International normalized rat io (INR) calculationOrdered By: ED PROVIDER on 12-20-2024 INR Coag (Bld) [Relative time] 1.0 {INR} [facility] L499.0042on 12-20-2024 Trop T High Sen 12 ng/L Normal <=14 [facility] Comment on above: Performed By: #### L 500.2500, L501.5425, L100.0100 #### [facility] [address] [place], [address] L499.0043on 12-20-2024 Trop T High Sen Normal <=14 [facility] Comment on above: Result Comment: Canc elled via OM: Order cancelled - Patient discharged Performed By: #### L 500.2500, L501.5425, L100.0100 #### [facility] [address] [place], [address] L501.4021on 12-20-2024 Trop T High Sen 11 ng/L Normal <=14 [facility] Comment on above: Performed By: #### L 500.2500, L501.4021, L100.0100 ####[facility] [address] [place], [address] Lymphocytes Auto (Unsp spec) [#/Vol]Ordered By: ED PROVIDER on 12-20-2024 Lymphocytes (Bld) [#/Vol] 1.79 10*3/uL 0.83-4.51 [facility] Lymphocytes/100 WBC Auto (Un sp spec)Ordered By: ED PROVIDER on 12-20-2024 Lymphocytes/100 WBC (Bld) 35.8 % 19-41 [facility] MCV (mean corpuscular volume ) determinationOrdered By: ED PROVIDER on 12-20-2024 MCV (RBC) [Entitic vol] 95.2 fL 81-99 [facility] Mean corpuscular hemoglobin (MCH) determinationOrdered By: ED PROVIDER on 12-20-2024 MCH (RBC) [Entitic mass] 31.6 pg 27.0-32.0 [facility] Mean corpuscular hemoglobin concentration (MCHC) determinationOrdered By: ED PROVIDER on 12-20-2024 MCHC (RBC) [Mass/Vol] 33.2 g/dL 32-36 [facility] Mean platelet volume determi nationOrdered By: ED PROVIDER on 12-20-2024 Platelet mean volume (Bld) [Entitic vol] 9.4 fL 6.2-12.0 [facility] Monocyte percentageOrdered B y: ED PROVIDER on 12-20-2024 Monocytes/100 WBC (Bld) 7.6 % 0-10 [facility] Neutrophil percentageOrdered By: ED PROVIDER on 12-20-2024 Neutrophils/100 WBC (Bld) 52.8 % 47-70 [facility] Nucleated red blood cell per centageOrdered By: ED PROVIDER on 12-20-2024 Nucleated RBC/100 WBC (Bld) [Ratio] 0 % 0-5 [facility] Platelet countOrdered By: ED PROVIDER on 12-20-2024 Platelets (Bld) [#/Vol] 183 10*3/uL 150-450 [facility] Potassium (Unsp spec) [Mass/ Vol]Ordered By: ED PROVIDER on 12-20-2024 Potassium [Moles/Vol] 4.3 mmol/L 3.3-5.1 [facility] Potassium measurement (mass/ volume)Ordered By: ED PROVIDER on 12-20-2024 Potassium (Unsp spec) [Mass/Vol] 4.3 mmol/L 3.3-5.1 [facility] Prothrombin Time w/INRon INR Coag (PPP) [Relative time] 1.0 {INR} Normal [facility] Comment on above: Performed By: #### L 500.2500, L501.5425, L100.0100 #### [facility] [address] [place], [address] PT Coag (PPP) [Time] 13.1 s Normal 11.7-14.9 [facility] Comment on above: Performed By: #### L 500.2500, L501.5425, L100.0100 #### [facility] [address] [place], [address] Prothrombin timeOrdered By: ED PROVIDER on 12-20-2024 PT Coag (PPP) [Time] 13.1 s 11.7-14.9 [facility] RBC Auto (Bld) [#/Vol]Ordere d By: ED PROVIDER on 12-20-2024 RBC (Bld) [#/Vol] 4.15 10*6/uL Low 4.2-5.4 [facility] Serum creatinine measurement (mass/volume)Ordered By: ED PROVIDER on 12-20-2024 Creatinine [Mass/Vol] 0.78 mg/dL 0.70-1.20 [facility] Serum glucose measurement (m ass/volume)Ordered By: ED PROVIDER on 12-20-2024 Glucose [Mass/Vol] 117 mg/dL High 70-99 [facility] Serum or plasma calcium areli urement (mass/volume)Ordered By: ED PROVIDER on 12-20-2024 Calcium [Mass/Vol] 9.6 mg/dL 7.6-11.0 [facility] Serum or plasma urea nitroge n measurement (mass/volume)Ordered By: ED PROVIDER on 12-20-2024 Urea nitrogen [Mass/Vol] 9 mg/dL 4-19 [facility] Sodium levelOrdered By: ZULEIMA JENKINS on 12-20-2024 Sodium [Moles/Vol] 141 mmol/L 133-145 [facility] Troponin T.cardiac High sens itivity method [Mass/Vol]Ordered By: Waqas Hart on 12-20-2024 Troponin T High Sensitivity 2 Hour 12 ng/L <14 [facility] Troponin T.cardiac High sens itivity method [Mass/Vol]Ordered By: ED PROVIDER on 12-20-2024 Troponin T High Sensitivity 11 ng/L <14 [facility] Comment on above: Delta: 12 on 5230 Troponin T.cardiac [Mass/vol ume] in Serum or Plasma by High sensitivity methodOrdered By: Waqas Hart on 12-20-2024 Troponin T.cardiac High sensitivity method [Mass/Vol] 12 ng/L <14 [facility] Troponin T.cardiac [Mass/vol ume] in Serum or Plasma by High sensitivity methodOrdered By: ED PROVIDER on 12-20-2024 Troponin T.cardiac High sensitivity method [Mass/Vol] 11 ng/L <14 [facility] White blood cell (WBC) count Ordered By: ED PROVIDER on 12-20-2024 WBC (Bld) [#/Vol] 5.0 10*3/uL 4.4-11.0 [facility] 11-14-2024 CNPN Telephone (INTMWS) ----- MARCIA MASCORRO ([id number]) 1955 F [facility] Date Time Provider Department 11/14/24 GABRIEL GALVAN INTWS During your visit today, we recorded the following information about you: Elsy Sanz RN 11/14/2024 2:45 PM Signed Rajiv calling from [facility] and states she will be faxing over a form for PCP to review and complete for patient's incontinence supplies. WENDY Hernandez [place], [place] 11/14/2024 4:22 PM Signed Form received and given to pcp to sign BARBY Up Julia, LPN 11/16/2024 11:03 AM Signed Completed form has been faxed back. Allergies As of Date: 11/14/2024 Noted Allergy Reaction CONTRAST DYE (IODINE) 12/20/2023 10 - Anaphylaxis Date Reviewed: 09/14/2024 Reviewed by: Melissa Leon LPN - Fully Assessed Reason for Visit: Form: [facility] [Other] Prescriptions as of 11/16/2024 - albuterol-budesonide HFA (AIRSUPRA) 90-80 mcg/actuation inhaler Inhale 2 Puffs as instructed every 2 hours as needed for wheezing/shortness of breath. Do not take more than 12 inhalations in a 24 hour period. - Bisacodyl (DULCOLAX) 5 mg tab Take 1 tablet by mouth once daily as needed for constipation. - DULoxetine (CYMBALTA) 30 mg capsule Take 1 capsule by mouth once daily. - sucralfate (CARAFATE) 100 mg/mL suspension Take 10 mL by mouth four times daily. (take prior to meals and at bedtime) - promethazine (PHENERGAN) 25 mg tablet Take 1 tablet by mouth every 6 hours as needed. - spironolactone (ALDACTONE) 25 mg tablet Take 1 tablet by mouth once daily. - polyethylene glycol 3350 (MIRALAX) 17 gram/dose powder Take 17 g by mouth once daily. Dissolve dose in 4 - 8 ounces of liquid and take as directed. - omeprazole (PRILOSEC) 40 mg capsule Take 1 capsule by mouth once daily. - Nutritional Supplements (OPTIMENTAL) liqd Take 237 mL by mouth once daily. Okay with what insurance covers - Diaper,Brief, Adult,Disposable (DEPEND EASY FIT UNDERGARMENTS) Size Large pull up. Change depends once every 1-2 hrs. Dx incontinence (788.30) Prolapsed bladder (618.01) - atorvastatin (LIPITOR) 40 mg tablet Take 1 tablet by mouth daily at bedtime. - senna-docusate (SENNA PLUS) 8.6-50 mg per tablet Take 1 tablet by mouth every morning AND 1 tablet daily at bedtime. - tiotropium bromide (SPIRIVA RESPIMAT) 2.5 mcg/actuation inhaler Inhale 2 Puffs as instructed once daily. Inhale two puffs once daily. - sodium phosphate-sodium bisphosphate (FLEET) enema 133 mL by RECTAL route as needed for constipation. - ondansetron (ZOFRAN) 4 mg tablet Take 1 tablet by mouth every 8 hours as needed for nausea/vomiting. - magnesium hydroxide (MILK OF MAGNESIA) 400 mg/5 mL suspension Take 30 mL by mouth once daily as needed for constipation. - lisinopril (ZESTRIL) 5 mg tablet Take 1 tablet by mouth once daily. - gabapentin (NEURONTIN) 400 mg capsule Take 1 capsule by mouth three times a day for 180 days. - furosemide (LASIX) 20 mg tablet Take 1 tablet by mouth two times a day. - clopidogrel (PLAVIX) 75 mg tablet Take 1 tablet by mouth once daily. - Cholecalciferol, Vitamin D3, 125 mcg (5,000 unit) cap Take 1 capsule by mouth once daily. - carvedilol (COREG) 6.25 mg tablet Take 1 tablet by mouth two times a day with meals. - benzonatate (TESSALON PERLES) 100 mg capsule Take 1 capsule by mouth three times a day as needed for cough. - melatonin 10 mg tab Take 1 tablet by mouth at bedtime as needed for insomnia. - oxyCODONE myristate (XTAMPZA ER) 27 mg CSpT Take 1 capsule by mouth two times a day. - acetaminophen (TYLENOL) 650 mg suppository 650 mg by RECTAL route every 4 hours as needed. - acetaminophen (TYLENOL) 325 mg tablet Take 650 mg by mouth every 4 hours as needed. - aluminum-magnesium hydroxide-simethicone (MAALOX,MYLANTA,MAG-AL PLUS) 200-200-20 mg/5 mL suspension Take 30 mL by mouth as needed. Problem List As Of Date 11/14/2024 Noted Resolved Essential hypertension, benign [I10] Lumbago [M54.50] 12/30/2005 Symptomatic menopausal or female climacteric st*12/30/2005 Anxiety [F41.9] Depression [F32.A] GERD (gastroesophageal reflux disease) [K21.9] Chronic pain [G89.29] COPD with exacerbation (HCC) [J44.1] 12/07/2023 Routine gynecological examination [Z01.419] 06/05/2014 09/23/2022 Well adult exam [Z00.00] 06/05/2014 09/23/2022 Stress incontinence, female [N39.3] 07/07/2014 Mixed hyperlipidemia [E78.2] 07/10/2014 Bladder prolapse, female, acquired [N81.10] 10/04/2014 Diverticulosis [K57.90] 03/20/2015 Smoker [F17.200] 12/28/2015 Epigastric pain [R10.13] 04/16/2016 04/16/2016 Colon cancer screening [Z12.11] 04/16/2016 04/16/2016 Retana's esophagus [K22.70] 08/21/2016 RUQ pain [R10.11] 08/21/2016 12/07/2023 Visual disturbances [H53.9] 08/21/2016 Near syncope [R55] 08/21/2016 09/23/2022 Heart palpitations [R00.2] more content not included)... Normal [facility] L499.0042on 11-05-2024 Trop T Delta 2 Normal [facility] Comment on above: Result Comment: If c linical suspicion for ACS is high, suggest getting a third troponin. Otherwise, stress test or CTCA. Performed By: #### L 499.0042 ####[facility] [address] [place], [place], [id number] Trop T High Sen 10 ng/L Normal <=14 [facility] Comment on above: Performed By: #### L 499.0042 ####[facility] [address] [place], [place], [address] No Panel InformationOrdered By: Linus Byers on 11-05-2024 Troponin T Hi Sensitivity 2Hr Delta 2 [facility] Comment on above: If clinical suspicio n for ACS is high, suggest getting a third troponin. Otherwise, stress test or CTCA. 2 [facility] Troponin T.cardiac High sens itivity method [Mass/Vol]Ordered By: Linus Byers on 11-05-2024 Troponin T High Sensitivity 2 Hour 10 ng/L <14 [facility] Troponin T.cardiac [Mass/vol ume] in Serum or Plasma by High sensitivity methodOrdered By: Linus Byers on 11-05-2024 Troponin T.cardiac High sensitivity method [Mass/Vol] 10 ng/L <14 [facility] 12 Lead EKGon 11-04-2024 12 Lead EKG [facility] Cardiovascular Services [address] [place] [address] 12 Lead EKG 11/04/24 2304 MR#: [id number] Acct: [id number] Name: MARCIA MASCORRO Rep #: [id number] : 1955 68 From: Nery Ann MD Attending Dr: Status: DEP ER Ordering Dr: Linus Byers MD Date: 11/04/24 Location: ED Sex: F C Admitted: Test Reason : DYSRHYTHMIA Blood Pressure : */* mmHG Vent. Rate : 66 BPM Atrial Rate : 66 BPM P-R Int : 136 ms QRS Dur : 102 ms QT Int : 404 ms P-R-T Axes : 53 17 81 degrees QTcB Int : 423 ms Normal sinus rhythm Septal infarct , age undetermined Possible Lateral infarct , age undetermined Abnormal ECG Confirmed by Nery Ann ([id number]), web content editor MICAH SALMERON ([id number]) on 11/07/2024 10:50:22 AM Referred By: Confirmed By: Nery Ann 11/07/24 1050 Date Nery Ann MD CC: Dr. Linus Byers MD; Dr. Gabriel Galvan MD Signed Normal [facility] Absolute lymphocyte countOrd ered By: Linus Byers on 11-04-2024 Lymphocytes Auto (Unsp spec) [#/Vol] 1.71 10*3/uL 0.83-4.51 [facility] Absolute neutrophil countOrd ered By: Linus Byers on 11-04-2024 Neutrophils (Bld) [#/Vol] 3.8 10*3/uL 2.0-7.7 [facility] Automated lymphocyte count a s percentage of total leukocytesOrdered By: Linus Byers on 11-04-2024 Lymphocytes/100 WBC Auto (Unsp spec) 28.2 % 19-41 [facility] BUN/creatinine ratioOrdered By: Linus Byers on 11-04-2024 Urea nitrogen/Creatinine [Mass ratio] 15.7 mg/mg 10-20 [facility] Basic Metabolic Profile (BMP )on 11-04-2024 Anion gap [Moles/Vol] 6 mmol/L Normal 5-15 [facility] Comment on above: Performed By: #### L 500.2500, L100.0100 #### [facility] [address] [place], [address] BUN/CRE 15.7 RATIO Normal 10-20 [facility] Comment on above: Performed By: #### L 500.2500, L100.0100 #### [facility] [address] [place], [address] Calcium [Mass/Vol] 8.9 mg/dL Normal 7.6-11.0 [facility] Comment on above: Performed By: #### L 500.2500, L100.0100 #### [facility] [address] [place], [address] Chloride [Moles/Vol] 105 mmol/L Normal 96-108 [facility] Comment on above: Performed By: #### L 500.2500, L100.0100 #### [facility] [address] [place], [address] CO2 [Moles/Vol] 32.3 mmol/L High 22.0-29.0 [facility] Comment on above: Performed By: #### L 500.2500, L100.0100 #### [facility] [address] [place], [address] Creatinine [Mass/Vol] 0.96 mg/dL Normal 0.70-1.20 [facility] Comment on above: Performed By: #### L 500.2500, L100.0100 #### [facility] [address] [place], [address] ECRCL 58.14 ml/min Normal [facility] Comment on above: Performed By: #### L 500.2500, L100.0100 #### [facility] [address] [place], [address] GFR/1.73 sq M.predicted among non-blacks MDRD (S/P/Bld) [Vol rate/Area] 65 mL/min/{1.73_m2} Normal >60 [facility] Comment on above: Result Comment: mL/m in/1.73m2 CKD-EPI Creatinine Equation (2020) Performed By: #### L 500.2500, L100.0100 #### [facility] [address] [place], [address] Glucose [Mass/Vol] 114 mg/dL High 70-99 [facility] Comment on above: Performed By: #### L 500.2500, L100.0100 #### [facility] [address] [place], [address] Potassium [Moles/Vol] 4.0 mmol/L Normal 3.3-5.1 [facility] Comment on above: Performed By: #### L 500.2500, L100.0100 #### [facility] [address] [place], [address] Sodium [Moles/Vol] 143 mmol/L Normal 133-145 [facility] Comment on above: Performed By: #### L 500.2500, L100.0100 #### [facility] [address] [place], [address] Urea nitrogen [Mass/Vol] 15 mg/dL Normal 4-19 [facility] Comment on above: Performed By: #### L 500.2500, L100.0100 #### [facility] [address] [place], [address] Basophil percentageOrdered B y: Linus Byers on 11-04-2024 Basophils/100 WBC (Bld) 0.7 % 0-1 [facility] CBC W/Diff, Automatedon 10-09 Absolute Lymph 1.71 X10 3/uL Normal 0.83-4.51 [facility] Comment on above: Performed By: #### L 500.2500, L100.0100 #### [facility] [address] [place], [address] Absolute Neut 3.8 X10 3/uL Normal 2.0-7.7 [facility] Comment on above: Performed By: #### L 500.2500, L100.0100 #### [facility] [address] [place], [address] Basophils/100 WBC (Bld) 0.7 % Normal 0-1 [facility] Comment on above: Performed By: #### L 500.2500, L100.0100 #### [facility] [address] [place], [address] Eosinophils/100 WBC (Bld) 2.1 % Normal 0-5 [facility] Comment on above: Performed By: #### L 500.2500, L100.0100 #### [facility] [address] [place], [address] Erythrocyte distribution width (RBC) [Ratio] 13.2 % Normal 11.6-14.6 [facility] Comment on above: Performed By: #### L 500.2500, L100.0100 #### [facility] [address] [place], [address] Hematocrit (Bld) [Volume fraction] 38.4 % Normal 37-47 [facility] Comment on above: Performed By: #### L 500.2500, L100.0100 #### [facility] [address] [place], [address] Hemoglobin (Bld) [Mass/Vol] 12.1 g/dL Normal 12.0-15.0 [facility] Comment on above: Performed By: #### L 500.2500, L100.0100 #### [facility] [address] [place], [address] IG% 0.200 Normal 0.0-0.9 [facility] Comment on above: Result Comment: IG% - Immature Granulocytes (promyelocytes, myelocytes and metamyelocytes) > 1% indicates that a LEFT SHIFT is Present. Performed By: #### L 500.2500, L100.0100 #### [facility] [address] [place], [address] Lymphocytes/100 WBC (Bld) 28.2 % Normal 19-41 [facility] Comment on above: Performed By: #### L 500.2500, L100.0100 #### [facility] [address] [place], [address] MCH (RBC) [Entitic mass] 31.3 pg Normal 27.0-32.0 [facility] Comment on above: Performed By: #### L 500.2500, L100.0100 #### [facility] [address] [place], [address] MCHC (RBC) [Mass/Vol] 31.5 g/dL Low 32-36 [facility] Comment on above: Performed By: #### L 500.2500, L100.0100 #### [facility] [address] [place], [address] MCV (RBC) [Entitic vol] 99.2 fL High 81-99 [facility] Comment on above: Performed By: #### L 500.2500, L100.0100 #### [facility] [address] [place], [address] Monocytes/100 WBC (Bld) 6.9 % Normal 0-10 [facility] Comment on above: Performed By: #### L 500.2500, L100.0100 #### [facility] [address] [place], [address] Neutrophils/100 WBC (Bld) 61.9 % Normal 47-70 [facility] Comment on above: Performed By: #### L 500.2500, L100.0100 #### [facility] [address] [place], [address] Nucleated RBC (Bld) [#/Vol] 0 10*3/uL Normal 0-5 [facility] Comment on above: Performed By: #### L 500.2500, L100.0100 #### [facility] [address] [place], [address] Platelet mean volume (Bld) [Entitic vol] 9.1 fL Normal 6.2-12.0 [facility] Comment on above: Performed By: #### L 500.2500, L100.0100 #### [facility] [address] [place], [address] Platelets (Bld) [#/Vol] 172 10*3/uL Normal 150-450 [facility] Comment on above: Performed By: #### L 500.2500, L100.0100 #### [facility] [address] [place], [address] RBC (Bld) [#/Vol] 3.87 10*6/uL Low 4.2-5.4 [facility] Comment on above: Performed By: #### L 500.2500, L100.0100 #### [facility] [address] [place], [address] RDW SD 48.1 fl High 35.1-43.9 [facility] Comment on above: Performed By: #### L 500.2500, L100.0100 #### [facility] [address] [place], [address] WBC (Bld) [#/Vol] 6.1 10*3/uL Normal 4.4-11.0 [facility] Comment on above: Performed By: #### L 500.2500, L100.0100 #### [facility] [address] [place], [address] Carbon dioxide measurementOr dered By: Linus Byers on 11-04-2024 CO2 [Moles/Vol] 32.3 mmol/L High 22.0-29.0 [facility] Chest PA and Lateralon 11-04 Chest PA and Lateral [facility] Imaging Services [address] [place] [address] Chest PA and Lateral MR#: [id number] Acct: [id number] Name: MARCIA MASCORRO Rep #: [id number] : 1955 F 68 From: Danny Sims MD PCP: Dr. Gabriel Galvan MD Status: REG ER Study: Chest PA and Lateral Date of Exam: 11/04/24 Exam# [id number] Ordering Dr: Linus Byers MD PROCEDURE: CHEST PA AND LATERAL REASON FOR EXAM: Hypoxia, chronic dyspnea TECHNIQUE: Frontal and lateral views of the chest. COMPARISON: 09/28/2024 FINDINGS: The heart size is normal. There are atherosclerotic calcifications of the thoracic aorta. The lungs are clear. Degenerative changes are identified within the thoracic spine. RAD/Chest PA and Lateral IMPRESSION: No radiographic evidence of acute cardiopulmonary disease Reading Location: [facility] CC: Dr. Linus Byers MD; Dr. Gabriel Galvan MD Service Consultant: Signed Normal [facility] Chloride measurementOrdered By: Linus Byers on 11-04-2024 Chloride [Moles/Vol] 105 mmol/L 96-108 [facility] Emergency Department Summary on 11-04-2024 Emergency Department Summary [facility] Medical Records Department [address] [place] [address] Emergency Department Summary 11/04/24 MR#: [id number] Acct: [id number] Name: MARCIA MASCORRO Vale Rep #: [id number] : 1955 68 From: Linus Byers MD PCP: Dr. Gabriel Galvan MD Status:REG ER Location: ED HPI History of Present Illness Chief Complaint: Shortness of Breath Informant: patient and EMS Narrative Narrative: This 68-year-old female lives in assisted living, she has COPD and is on 2 L nasal cannula chronically. She has had no acute symptoms today, but [facility] staff at the assisted living checked her vital signs routinely and they noted that her pulse ox was in the low 80s while she had her nasal cannula in. They called EMS who put her on their own oxygen 2 L and she immediately came up into the 90s. No change in any of her chronic symptoms, mild dyspnea, and she states she has chronic discomfort in her chest only when she swallows. It is not there presently since she is not swallowing. She denies any other new symptoms. She states she has a large concentrator that she had on which apparently is not working and staff was aware of that but sent her for evaluation anyway. She states she has a small concentrator that is there in her home/room, she uses it when she goes out which she does not do very often, and they are aware that she has that there is well but still wanted her to come to the ED to get evaluated. Additionally the patient states that her son is staying with her at the assisted living room [facility], and he is currently there. [facility] Medical History Chronic pain Kidney disease Asthma Irregular heart beat Congestive heart failure (CHF) TIA (transient ischemic attack) Wears glasses Post-menopausal Arthritis History of renal disease High cholesterol DVT (deep venous thrombosis) Easy bruising Excessive bleeding Back pain Injury of back History of ulceration Difficulty chewing Gastric reflux Shortness of breath on exertion Hoarseness Chronic cough Leg cramps History of pain when walking History of edema History of echocardiogram History of stress test Cardiology follow-up encounter History of CHF (congestive heart failure) History of irregular heartbeat Chest pain Bullous emphysema COPD with asthma Esophagitis, unspecified without bleeding Unspecified combined 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 Other chronic pain Elevated troponin Sustained SVT Depression Osteoporosis Kidney stones Smoker Myocardial infarct History of non-ST elevation myocardial infarction (NSTEMI) (09/01/21) Essential hypertension Old anterior wall myocardial infarction Ischemic cardiomyopathy Opiate dependence Anxiety and depression TIA (transient ischemic attack) Obesity (BMI 30.0-34.9) EVELYN (obstructive sleep apnea) Personal history of transient ischemic attack (TIA), and cerebral infarction without residual deficits COPD (chronic obstructive pulmonary disease) Calculus of left kidney GERD (gastroesophageal reflux disease) Hyperlipidemia Atherosclerotic heart disease of [place] coronary artery without angina pectoris Tobacco abuse Home Medications ???Medication ???Instructions ???Recorded ???Last Taken ???Type inhalational spacing device #1 ea 02/17/23 Unknown Rx (Aerochamber MV spacer) tiotropium bromide 2.5 2 puff inhalation DAILY #4 grams 0 02/17/23 09/27/24 Rx mcg/actuation mist for inhalation (Spiriva Respimat) lorazepam 1 mg tablet (Ativan) 1 mg PO TID PRN anxiety 07/16/23 0 09/27/24 History gabapentin 400 mg capsule 400 mg PO Q6H 07/29/23 09/27/24 Hi story nitroglycerin 0.4 mg sublingual 0.4 mg buccal Q5M PRN chest pain 1 09/28/22 Unknown History tablet sucralfate 1 gram tablet 1 g PO Q8H 07/29/23 09/27/24 Histo ry albuterol sulfate 2.5 mg/3 mL 2.5 mg continuous nebulization Q6H 09/05/23 Unknown History (0.083 %) solution for nebulization PRN shortness of breath or whee zing melatonin 3 mg capsule 3 mg PO QHS 09/05/23 09/27/24 Hist ory albuterol 90 mcg-budesonide 80 1 - 2 inh inhalation BID PRN 09/2809/27/24 History mcg/actuation HFA aerosol inhaler shortness of breath (Airsupra) atorvastatin 40 mg tablet 40 mg PO QHS 09/28/24 09/27/24 His tory bisacodyl 5 mg tablet,delayed 5 mg PO DAILY PRN constipation Unknown History release cholecalciferol (vitamin D3) 125 125 mcg PO DAILY 09/28/24 09/27/24 History mcg (5,000 unit) capsule hydrocodone-acetaminophen 5-325mg 1 tab PO Q4H 09/28/24 09/27/24 Hi story 5mg-325mg lisinopril 5 mg tablet 5 mg PO DAILY 09/28/24 09/27/24 Hi story oxycodone myristate 18 mg capsule 18 mg PO BID 09/28/24 09/27/24 Hi story sprinkle extended release 12hr(D (more content not included)... Normal [facility] Eosinophil percentageOrdered By: Linus Byers on 11-04-2024 Eosinophils/100 WBC (Bld) 2.1 % 0-5 [facility] Erythrocyte distribution wid th (RBC) [Ratio]Ordered By: Linus Byers on 11-04-2024 Erythrocyte distribution width (RBC) [Entitic vol] 48.1 fL High 35.1-43.9 [facility] Erythrocyte distribution wid th ratioOrdered By: Linus Byers on 11-04-2024 Erythrocyte distribution width (RBC) [Ratio] 13.2 % 11.6-14.6 [facility] Erythrocyte distribution wid th standard deviationOrdered By: Linus Byers on 11-04-2024 Erythrocyte distribution width (RBC) [Ratio] 48.1 fl High 35.1-43.9 [facility] Estimation of creatinine pietro aranceOrdered By: Linus Byers on 11-04-2024 Estimated Creatinine Clearance Calc 58.14 ml/min [facility] GFR/1.73 sq M.predicted gabbi g non-blacks MDRD (S/P/Bld) [Vol rate/Area]Ordered By: Linus Byers on 11-04-2024 Estimated GFR (MDRD) Non-Af Amer 65 >60 [facility] Comment on above: mL/min/1.73m2 CKD-EP I Creatinine Equation (2020) Glomerular filtration rate ( GFR) estimation/1.73 sq m using serum, plasma, or whole bOrdered By: Linus Byers on 11-04-2024 GFR/1.73 sq M.predicted among non-blacks MDRD (S/P/Bld) [Vol rate/Area] 65 mL/min/{1.73_m2} >60 [facility] Hematocrit Auto (Bld) [Volum e fraction]Ordered By: Linus Byers on 11-04-2024 Hematocrit (Bld) [Volume fraction] 38.4 % 37-47 [facility] Hemoglobin measurementOrdere d By: Linus Byers on 11-04-2024 Hemoglobin (Bld) [Mass/Vol] 12.1 g/dL 12.0-15.0 [facility] Immature granulocytes/100 WB C Auto (Bld)Ordered By: Linus Byers on 11-04-2024 Immature granulocytes/100 WBC (Bld) 0.200 % 0.0-0.9 [facility] Comment on above: IG% - Immature Granu locytes (promyelocytes, myelocytes and metamyelocytes) > 1% indicates that a LEFT SHIFT is Present. L501.4021on 11-04-2024 Trop T High Sen 12 ng/L Normal <=14 [facility] Comment on above: Performed By: #### L 400.0001 #### [facility] [address] [place], [place], [id number] Lymphocytes Auto (Unsp spec) [#/Vol]Ordered By: Linus Byers on 11-04-2024 Lymphocytes (Bld) [#/Vol] 1.71 10*3/uL 0.83-4.51 [facility] Lymphocytes/100 WBC Auto (Un sp spec)Ordered By: Linus Byers on 11-04-2024 Lymphocytes/100 WBC (Bld) 28.2 % 19-41 [facility] MCV (mean corpuscular volume ) determinationOrdered By: Linus Byers on 11-04-2024 MCV (RBC) [Entitic vol] 99.2 fL High 81-99 [facility] Mean corpuscular hemoglobin (MCH) determinationOrdered By: Linus Byers on 11-04-2024 MCH (RBC) [Entitic mass] 31.3 pg 27.0-32.0 [facility] Mean corpuscular hemoglobin concentration (MCHC) determinationOrdered By: Linus Byers on 11-04-2024 MCHC (RBC) [Mass/Vol] 31.5 g/dL Low 32-36 [facility] Mean platelet volume determi nationOrdered By: Linus Byers on 11-04-2024 Platelet mean volume (Bld) [Entitic vol] 9.1 fL 6.2-12.0 [facility] Monocyte percentageOrdered B y: Linus Byers on 11-04-2024 Monocytes/100 WBC (Bld) 6.9 % 0-10 [facility] Neutrophil percentageOrdered By: Linus Byers on 11-04-2024 Neutrophils/100 WBC (Bld) 61.9 % 47-70 [facility] No Panel InformationOrdered By: Linus Byers on 11-04-2024 Troponin T High Sensitivity 12 ng/L <14 [facility] 12 ng/L <14 [facility] Nucleated red blood cell per centageOrdered By: Linus Byers on 11-04-2024 Nucleated RBC/100 WBC (Bld) [Ratio] 0 % 0-5 [facility] Platelet countOrdered By: Clemente Byers on 11-04-2024 Platelets (Bld) [#/Vol] 172 10*3/uL 150-450 [facility] RBC Auto (Bld) [#/Vol]Ordere d By: Linus Byers on 11-04-2024 RBC (Bld) [#/Vol] 3.87 10*6/uL Low 4.2-5.4 [facility] Serum creatinine measurement (mass/volume)Ordered By: Linus Byers on 11-04-2024 Creatinine [Mass/Vol] 0.96 mg/dL 0.70-1.20 [facility] Serum glucose measurement (m ass/volume)Ordered By: Linus Byers on 11-04-2024 Glucose [Mass/Vol] 114 mg/dL High 70-99 [facility] Serum or plasma anion gap de termination (moles/volume)Ordered By: Linus Byers on 11-04-2024 Anion gap [Moles/Vol] 6 mmol/L 5-15 [facility] Serum or plasma calcium areli urement (mass/volume)Ordered By: Linus Byers on 11-04-2024 Calcium [Mass/Vol] 8.9 mg/dL 7.6-11.0 [facility] Serum or plasma potassium me asurementOrdered By: Linus Byers on 11-04-2024 Potassium [Moles/Vol] 4.0 mmol/L 3.3-5.1 [facility] Serum or plasma sodium measu rement (moles/volume)Ordered By: Linus Byers on 11-04-2024 Sodium [Moles/Vol] 143 mmol/L 133-145 [facility] Serum or plasma urea nitroge n measurement (mass/volume)Ordered By: Linus Byers on 11-04-2024 Urea nitrogen [Mass/Vol] 15 mg/dL 4-19 [facility] White blood cell (WBC) count Ordered By: Linus Byers on 11-04-2024 WBC (Bld) [#/Vol] 6.1 10*3/uL 4.4-11.0 [facility] CNPNon 10-12-2024 DONNAN Telephone (LALITO) ----- MARCIA MASCORRO ([id number]) 1955 F CHT Date Time Provider Department 10/12/24 SHRUTI ONTIVEROS During your visit today, we recorded the following information about you: Rajiv Hendricks 10/12/2024 4:30 PM Signed Spoke with daughter to confirm EGD procedure date AND with my phone number [phone]. Allergies As of Date: 10/12/2024 Noted Allergy Reaction CONTRAST DYE (IODINE) 12/20/2023 10 - Anaphylaxis Date Reviewed: 09/14/2024 Reviewed by: Melissa Leon LPN - Fully Assessed Reason for Visit: Outpatient Endoscopy [481] Prescriptions as of 10/12/2024 - albuterol-budesonide HFA (AIRSUPRA) 90-80 mcg/actuation inhaler Inhale 2 Puffs as instructed every 2 hours as needed for wheezing/shortness of breath. Do not take more than 12 inhalations in a 24 hour period. - Bisacodyl (DULCOLAX) 5 mg tab Take 1 tablet by mouth once daily as needed for constipation. - DULoxetine (CYMBALTA) 30 mg capsule Take 1 capsule by mouth once daily. - sucralfate (CARAFATE) 100 mg/mL suspension Take 10 mL by mouth four times daily. (take prior to meals and at bedtime) - promethazine (PHENERGAN) 25 mg tablet Take 1 tablet by mouth every 6 hours as needed. - spironolactone (ALDACTONE) 25 mg tablet Take 1 tablet by mouth once daily. - polyethylene glycol 3350 (MIRALAX) 17 gram/dose powder Take 17 g by mouth once daily. Dissolve dose in 4 - 8 ounces of liquid and take as directed. - omeprazole (PRILOSEC) 40 mg capsule Take 1 capsule by mouth once daily. - Nutritional Supplements (OPTIMENTAL) liqd Take 237 mL by mouth once daily. Okay with what insurance covers - Diaper,Brief, Adult,Disposable (DEPEND EASY FIT UNDERGARMENTS) Size Large pull up. Change depends once every 1-2 hrs. Dx incontinence (788.30) Prolapsed bladder (618.01) - atorvastatin (LIPITOR) 40 mg tablet Take 1 tablet by mouth daily at bedtime. - senna-docusate (SENNA PLUS) 8.6-50 mg per tablet Take 1 tablet by mouth every morning AND 1 tablet daily at bedtime. - tiotropium bromide (SPIRIVA RESPIMAT) 2.5 mcg/actuation inhaler Inhale 2 Puffs as instructed once daily. Inhale two puffs once daily. - sodium phosphate-sodium bisphosphate (FLEET) enema 133 mL by RECTAL route as needed for constipation. - ondansetron (ZOFRAN) 4 mg tablet Take 1 tablet by mouth every 8 hours as needed for nausea/vomiting. - magnesium hydroxide (MILK OF MAGNESIA) 400 mg/5 mL suspension Take 30 mL by mouth once daily as needed for constipation. - lisinopril (ZESTRIL) 5 mg tablet Take 1 tablet by mouth once daily. - gabapentin (NEURONTIN) 400 mg capsule Take 1 capsule by mouth three times a day for 180 days. - furosemide (LASIX) 20 mg tablet Take 1 tablet by mouth two times a day. - clopidogrel (PLAVIX) 75 mg tablet Take 1 tablet by mouth once daily. - Cholecalciferol, Vitamin D3, 125 mcg (5,000 unit) cap Take 1 capsule by mouth once daily. - carvedilol (COREG) 6.25 mg tablet Take 1 tablet by mouth two times a day with meals. - benzonatate (TESSALON PERLES) 100 mg capsule Take 1 capsule by mouth three times a day as needed for cough. - melatonin 10 mg tab Take 1 tablet by mouth at bedtime as needed for insomnia. - oxyCODONE myristate (XTAMPZA ER) 27 mg CSpT Take 1 capsule by mouth two times a day. - acetaminophen (TYLENOL) 650 mg suppository 650 mg by RECTAL route every 4 hours as needed. - acetaminophen (TYLENOL) 325 mg tablet Take 650 mg by mouth every 4 hours as needed. - aluminum-magnesium hydroxide-simethicone (MAALOX,MYLANTA,MAG-AL PLUS) 200-200-20 mg/5 mL suspension Take 30 mL by mouth as needed. Problem List As Of Date 10/12/2024 Noted Resolved Essential hypertension, benign [I10] Lumbago [M54.50] 12/30/2005 Symptomatic menopausal or female climacteric st*12/30/2005 Anxiety [F41.9] Depression [F32.A] GERD (gastroesophageal reflux disease) [K21.9] Chronic pain [G89.29] COPD with exacerbation (HCC) [J44.1] 12/07/2023 Routine gynecological examination [Z01.419] 06/05/2014 09/23/2022 Well adult exam [Z00.00] 06/05/2014 09/23/2022 Stress incontinence, female [N39.3] 07/07/2014 Mixed hyperlipidemia [E78.2] 07/10/2014 Bladder prolapse, female, acquired [N81.10] 10/04/2014 Diverticulosis [K57.90] 03/20/2015 Smoker [F17.200] 12/28/2015 Epigastric pain [R10.13] 04/16/2016 04/16/2016 Colon cancer screening [Z12.11] 04/16/2016 04/16/2016 Retana's esophagus [K22.70] 08/21/2016 RUQ pain [R10.11] 08/21/2016 12/07/2023 Visual disturbances [H53.9] 08/21/2016 Near syncope [R55] 08/21/2016 09/23/2022 Heart palpitations [R00.2] 09/29/2016 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 Normal [facility] 12 Lead EKG performed by [facility] on 10-04-2024 12 Lead EKG performed by [facility] [address] [place] [address] 12 Lead EKG performed by [facility] 10/04/24 1015 MR#: [id number] Acct: [id number] Name: MARCIA MASCORRO Rep #: [id number] : 1955 68 From: Rey Curtis MD Attending Dr: Dr. Rey Curtis MD Status: ALBINO ALFARO Ordering Dr: Rey Curtis MD Date: 10/04/24 Location: [facility] Sex: F C Admitted: [facility]/12 Lead EKG performed by [facility] ECG Report Interpretation -Sinus Rhythm -Nonspecific QRS widening. -Anterior infarct -age undetermined. ABNORMAL Electronically signed on 10/05/2024 at 15:15 by Rey Curtis [employer] Version 8610 10/05/24 1521 Date Rey Curtis MD CC: Dr. Gabriel Galvan MD Date Dictated: 10/04/241014 Date Transcribed: 10/04/241014 Service Consultant: [place] Signed Normal [facility] CNPAdeline 10-04-2024 CNPN Telephone (PHANWSImtiaz) ----- MARCIA MASCORRO ([id number]) 1955 F T Date Time Provider Department 10/04/24 SAVANNAH CRUZ During your visit today, we recorded the following information about you: Savannah Cruz, [employer] 10/04/2024 10:37 AM Signed Sw left message for patient daughter to return Sw call to discuss transportation assistance needs. Savannah Cruz, [employer] 10/06/2024 9:49 AM Signed Sw left 2nd message for patient daughter to return Sw call to discuss transportation resource needs. Savannah Cruz, [employer] 10/10/2024 11:28 AM Signed Sw left message for patient daughter to return Sw call to discuss transportation assistance needs. Allergies As of Date: 10/04/2024 Noted Allergy Reaction CONTRAST DYE (IODINE) 12/20/2023 10 - Anaphylaxis Date Reviewed: 09/14/2024 Reviewed by: Melissa Leon LPN - Fully Assessed Prescriptions as of 10/10/2024 - albuterol-budesonide HFA (AIRSUPRA) 90-80 mcg/actuation inhaler Inhale 2 Puffs as instructed every 2 hours as needed for wheezing/shortness of breath. Do not take more than 12 inhalations in a 24 hour period. - Bisacodyl (DULCOLAX) 5 mg tab Take 1 tablet by mouth once daily as needed for constipation. - DULoxetine (CYMBALTA) 30 mg capsule Take 1 capsule by mouth once daily. - sucralfate (CARAFATE) 100 mg/mL suspension Take 10 mL by mouth four times daily. (take prior to meals and at bedtime) - promethazine (PHENERGAN) 25 mg tablet Take 1 tablet by mouth every 6 hours as needed. - spironolactone (ALDACTONE) 25 mg tablet Take 1 tablet by mouth once daily. - polyethylene glycol 3350 (MIRALAX) 17 gram/dose powder Take 17 g by mouth once daily. Dissolve dose in 4 - 8 ounces of liquid and take as directed. - omeprazole (PRILOSEC) 40 mg capsule Take 1 capsule by mouth once daily. - Nutritional Supplements (OPTIMENTAL) liqd Take 237 mL by mouth once daily. Okay with what insurance covers - Diaper,Brief, Adult,Disposable (DEPEND EASY FIT UNDERGARMENTS) Size Large pull up. Change depends once every 1-2 hrs. Dx incontinence (788.30) Prolapsed bladder (618.01) - atorvastatin (LIPITOR) 40 mg tablet Take 1 tablet by mouth daily at bedtime. - senna-docusate (SENNA PLUS) 8.6-50 mg per tablet Take 1 tablet by mouth every morning AND 1 tablet daily at bedtime. - tiotropium bromide (SPIRIVA RESPIMAT) 2.5 mcg/actuation inhaler Inhale 2 Puffs as instructed once daily. Inhale two puffs once daily. - sodium phosphate-sodium bisphosphate (FLEET) enema 133 mL by RECTAL route as needed for constipation. - ondansetron (ZOFRAN) 4 mg tablet Take 1 tablet by mouth every 8 hours as needed for nausea/vomiting. - magnesium hydroxide (MILK OF MAGNESIA) 400 mg/5 mL suspension Take 30 mL by mouth once daily as needed for constipation. - lisinopril (ZESTRIL) 5 mg tablet Take 1 tablet by mouth once daily. - gabapentin (NEURONTIN) 400 mg capsule Take 1 capsule by mouth three times a day for 180 days. - furosemide (LASIX) 20 mg tablet Take 1 tablet by mouth two times a day. - clopidogrel (PLAVIX) 75 mg tablet Take 1 tablet by mouth once daily. - Cholecalciferol, Vitamin D3, 125 mcg (5,000 unit) cap Take 1 capsule by mouth once daily. - carvedilol (COREG) 6.25 mg tablet Take 1 tablet by mouth two times a day with meals. - benzonatate (TESSALON PERLES) 100 mg capsule Take 1 capsule by mouth three times a day as needed for cough. - melatonin 10 mg tab Take 1 tablet by mouth at bedtime as needed for insomnia. - oxyCODONE myristate (XTAMPZA ER) 27 mg CSpT Take 1 capsule by mouth two times a day. - acetaminophen (TYLENOL) 650 mg suppository 650 mg by RECTAL route every 4 hours as needed. - acetaminophen (TYLENOL) 325 mg tablet Take 650 mg by mouth every 4 hours as needed. - aluminum-magnesium hydroxide-simethicone (MAALOX,MYLANTA,MAG-AL PLUS) 200-200-20 mg/5 mL suspension Take 30 mL by mouth as needed. Problem List As Of Date 10/04/2024 Noted Resolved Essential hypertension, benign [I10] Lumbago [M54.50] 12/30/2005 Symptomatic menopausal or female climacteric st*12/30/2005 Anxiety [F41.9] Depression [F32.A] GERD (gastroesophageal reflux disease) [K21.9] Chronic pain [G89.29] COPD with exacerbation (HCC) [J44.1] 12/07/2023 Routine gynecological examination [Z01.419] 06/05/2014 09/23/2022 Well adult exam [Z00.00] 06/05/2014 09/23/2022 Stress incontinence, female [N39.3] 07/07/2014 Mixed hyperlipidemia [E78.2] 07/10/2014 Bladder prolapse, female, acquired [N81.10] 10/04/2014 Diverticulosis [K57.90] 03/20/2015 Smoker [F17.200] 12/28/2015 Epigastric pain [R10.13] 04/16/2016 04/16/2016 Colon cancer screening [Z12.11] 04/16/2016 04/16/2016 Retana's esophagus [K22.70] 08/21/2016 RUQ pain [R10.11] 08/21/2016 12/07/2023 Visual disturbances [H53.9] 08/21/2016 Near syncope [R55] 08/21/2016 09/23/2022 Heart palpitations [R00.2] 09/29/2016 Neoplas (more content not included)... Normal [facility] Cardiology Visit Reporton Cardiology Visit Report [facility] [address] [place] [address] OFFICE VISIT Date of Service: 10/04/24 MR#: [id number] Acct: [id number] Name: MARCIA MASCORRO Rep #: [id number] : 1955 Provider: Dr. Rey Curtis MD Age/Sex: 68/F Location: [facility] Status: Signed HPI HPI History of Present Illness Details: MARCIA MASCORRO, is a 68 F who presents to the office today for a cardiovascular hospital visit. She is also here for preoperative evaluation for hernia. Patient has history of nonischemic cardiomyopathy with an EF of around 25% with coronary angiogram done in January 2022 revealing mild nonobstructive coronary artery disease. She also has history of peripheral vascular disease, COPD dyslipidemia, hypertension, active tobacco abuse. It appears that she is not compliant with medications either. She was supposed to be on Xarelto but it is unclear if she was taking it regularly. Her 2D echo revealed an EF of around 20% with LV apical thrombus. From a cardiac standpoint, the patient is doing well. She does acknowledge daily palpitations. She does acknowledge chest pain-midsternal this does radiate to her left arm. She states this occurs with exertion and at rest. She does acknowledge SOB with exertion and at rest. She denies Orthopnea, and PND. She does not have bleeding issues; no blood in urine, stool or nosebleeds. She denies any decrease in energy level, myalgias, or claudication. She does not have edema, or sudden weight gain. She states that she does have lightheadedness when walking. She denies dizziness, syncopal or near syncopal episodes, and headaches. 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 Food Required: No Accompanied by: Self Is patient in pain?: No Allergies No Known Allergies Allergy (Verified 10/04/24 09:54) Medications ???Medication ???Instructions ???Recorded ???Confirmed ???Type inhalational spacing device #1 ea 02/17/23 11/30/23 Rx (Aerochamber MV spacer) tiotropium bromide 2.5 2 puff inhalation DAILY #4 grams 02/17/23 10/04/24 Rx mcg/actuation mist for inhalation (Spiriva Respimat) lorazepam 1 mg tablet (Ativan) 1 mg PO TID PRN anxiety 07/16/23 10/04/24 History gabapentin 400 mg capsule 400 mg PO Q6H 07/29/23 10/04/24 History nitroglycerin 0.4 mg sublingual 0.4 mg buccal Q5M PRN chest pain 07/29/23 10/04/24 History tablet sucralfate 1 gram tablet 1 g PO Q8H 07/29/23 10/04/24 History albuterol sulfate 2.5 mg/3 mL 2.5 mg continuous nebulization Q6H 09/05/23 10/04/24 History (0.083 %) solution for nebulization PRN shortness of breath or wheezing melatonin 3 mg capsule 3 mg PO QHS 09/05/23 10/04/24 History albuterol 90 mcg-budesonide 80 1 - 2 inh inhalation BID PRN 09/28/24 10/04/24 History mcg/actuation HFA aerosol inhaler shortness of breath (Airsupra) atorvastatin 40 mg tablet 40 mg PO QHS 09/28/24 10/04/24 History bisacodyl 5 mg tablet,delayed 5 mg PO DAILY PRN constipation 09/28/24 10/04/24 History release cholecalciferol (vitamin D3) 125 125 mcg PO DAILY 09/28/24 10/04/24 History mcg (5,000 unit) capsule hydrocodone-acetaminophen 5-325mg 1 tab PO Q4H 09/28/24 10/04/24 History 5mg-325mg lisinopril 5 mg tablet 5 mg PO DAILY 09/28/24 10/04/24 History oxycodone myristate 18 mg capsule 18 mg PO BID 09/28/24 10/04/24 History sprinkle extended release 12hr(DON'T CRUSH) (Xtampza ER) polyethylene glycol 3350 17 17 g PO BID 09/28/24 10/04/24 History gram/dose oral powder promethazine 25 mg tablet 25 mg PO PRN PRN nausea and 09/28/24 10/04/24 History vomiting albuterol sulfate 90 mcg/actuation 2 puff inhalation Q6H PRN 09/30/24 10/04/24 Rx aerosol inhaler shortness of breath or wheezing #8.5 grams budesonide-formoterol HFA 160 1 puff inhalation BID #10.2 grams 09/30/24 10/04/24 Rx mcg-4.5 mcg/actuation aerosol inhaler (Symbicort) doxycycline hyclate 100 mg capsule 100 mg PO BID #14 caps 09/30/24 10/04/24 Rx guaifenesin 1,200 mg tablet, 1,200 mg PO BID #30 tabs 09/30/24 10/04/24 Rx extended release 12 hr (Mucus Relief ER) prednisone 20 mg tablet 20 mg PO BID #10 tabs 09/30/24 10/04/24 Rx carvedilol 25 mg tablet 25 mg PO BID #120 tabs 10/04/24 10/04/24 Rx furosemide 40 mg tablet 40 mg PO QDAY #90 tabs 10/04/24 10/04/24 Rx Have you fallen in the past year?: [facility] Chr (more content not included)... Normal [facility] Basic Metabolic Profile (BMP )on 10-02-2024 BUN Normal 7-18 [facility] Comment on above: Result Comment: Canc elled via OM: Order cancelled - Patient discharged Performed By: #### L 500.2500, L501.5425, L100.0100 #### [facility] [address] [place], [address] BUN/CRE Normal 10-20 [facility] Comment on above: Result Comment: Canc elled via OM: Order cancelled - Patient discharged Performed By: #### L 500.2500, L501.5425, L100.0100 #### [facility] [address] [place], [address] CA,Total Normal 8.5-10.1 [facility] Comment on above: Result Comment: Canc elled via OM: Order cancelled - Patient discharged Performed By: #### L 500.2500, L501.5425, L100.0100 #### [facility] [address] [place], [address] CL Normal 98-107 [facility] Comment on above: Result Comment: Canc elled via OM: Order cancelled - Patient discharged Performed By: #### L 500.2500, L501.5425, L100.0100 #### [facility] [address] [place], [address] CO2 Normal 21.0-32.0 [facility] Comment on above: Result Comment: Canc elled via OM: Order cancelled - Patient discharged Performed By: #### L 500.2500, L501.5425, L100.0100 #### [facility] [address] [place], [address] CREAT,SERUM Normal 0.55-1.02 [facility] Comment on above: Result Comment: Canc elled via OM: Order cancelled - Patient discharged Performed By: #### L 500.2500, L501.5425, L100.0100 #### [facility] [address] [place], [address] EST GFR Normal >60 [facility] Comment on above: Result Comment: Canc elled via OM: Order cancelled - Patient discharged Performed By: #### L 500.2500, L501.5425, L100.0100 #### [facility] [address] [place], [address] EST GFR - AA Normal >60 [facility] Comment on above: Result Comment: Canc elled via OM: Order cancelled - Patient discharged Performed By: #### L 500.2500, L501.5425, L100.0100 #### [facility] [address] [place], [address] GAP Normal 5-15 [facility] Comment on above: Result Comment: Canc elled via OM: Order cancelled - Patient discharged Performed By: #### L 500.2500, L501.5425, L100.0100 #### [facility] [address] [place], [address] GLU Normal 74-106 [facility] Comment on above: Result Comment: Canc elled via OM: Order cancelled - Patient discharged Performed By: #### L 500.2500, L501.5425, L100.0100 #### [facility] [address] [place], [address] Potassium Normal 3.5-5.1 [facility] Comment on above: Result Comment: Canc elled via OM: Order cancelled - Patient discharged Performed By: #### L 500.2500, L501.5425, L100.0100 #### [facility] [address] [place], [address] Basic Metabolic Profile (BMP) Normal 136-145 [facility] Comment on above: Result Comment: Canc elled via OM: Order cancelled - Patient discharged Performed By: #### L 500.2500, L501.5425, L100.0100 #### [facility] [address] [place], [address] CBC W/Diff, Automatedon -2 Absolute Neut Normal 2.0-7.7 [facility] [facility] Comment on above: Result Comment: Canc elled via OM: Order cancelled - Patient discharged Performed By: #### L 500.2500, L501.5425, L100.0100 #### [facility] [address] [place], [address] HCT Normal 37-47 [facility] Comment on above: Result Comment: Canc elled via OM: Order cancelled - Patient discharged Performed By: #### L 500.2500, L501.5425, L100.0100 #### [facility] [address] [place], [address] HGB Normal 12.0-15.0 [facility] Comment on above: Result Comment: Canc elled via OM: Order cancelled - Patient discharged Performed By: #### L 500.2500, L501.5425, L100.0100 #### [facility] [address] [place], [address] MCH Normal 27.0-32.0 [facility] Comment on above: Result Comment: Canc elled via OM: Order cancelled - Patient discharged Performed By: #### L 500.2500, L501.5425, L100.0100 #### [facility] [address] [place], [address] MCHC Normal 32-36 [facility] Comment on above: Result Comment: Canc elled via OM: Order cancelled - Patient discharged Performed By: #### L 500.2500, L501.5425, L100.0100 #### [facility] [address] [place], [address] MCV Normal 81-99 [facility] Comment on above: Result Comment: Canc elled via OM: Order cancelled - Patient discharged Performed By: #### L 500.2500, L501.5425, L100.0100 #### [facility] [address] [place], [address] NEUT% Normal 47-70 [facility] Comment on above: Result Comment: Canc elled via OM: Order cancelled - Patient discharged Performed By: #### L 500.2500, L501.5425, L100.0100 #### [facility] [address] [place], [address] PLT Normal 150-450 [facility] Comment on above: Result Comment: Canc elled via OM: Order cancelled - Patient discharged Performed By: #### L 500.2500, L501.5425, L100.0100 #### [facility] [address] [place], [address] RBC Normal 4.2-5.4 [facility] Comment on above: Result Comment: Canc elled via OM: Order cancelled - Patient discharged Performed By: #### L 500.2500, L501.5425, L100.0100 #### [facility] [address] [place], [address] RDW CV Normal 11.6-14.6 [facility] Comment on above: Result Comment: Canc elled via OM: Order cancelled - Patient discharged Performed By: #### L 500.2500, L501.5425, L100.0100 #### [facility] [address] [place], [address] RDW SD Normal 35.1-43.9 [facility] Comment on above: Result Comment: Canc elled via OM: Order cancelled - Patient discharged Performed By: #### L 500.2500, L501.5425, L100.0100 #### [facility] [address] [place], [address] WBC Normal 4.4-11.0 [facility] Comment on above: Result Comment: Canc elled via OM: Order cancelled - Patient discharged Performed By: #### L 500.2500, L501.5425, L100.0100 #### [facility] [address] [place], [address] Basic Metabolic Profile (BMP )on 10-01-2024 BUN Normal 7-18 [facility] Comment on above: Result Comment: Canc elled via OM: Order cancelled - Patient discharged Performed By: #### L 500.2500, L501.5425, L100.0100 #### [facility] [address] [place], [address] BUN/CRE Normal 10-20 [facility] Comment on above: Result Comment: Canc elled via OM: Order cancelled - Patient discharged Performed By: #### L 500.2500, L501.5425, L100.0100 #### [facility] [address] [place], [address] CA,Total Normal 8.5-10.1 [facility] Comment on above: Result Comment: Canc elled via OM: Order cancelled - Patient discharged Performed By: #### L 500.2500, L501.5425, L100.0100 #### [facility] [address] [place], [address] CL Normal 98-107 [facility] Comment on above: Result Comment: Canc elled via OM: Order cancelled - Patient discharged Performed By: #### L 500.2500, L501.5425, L100.0100 #### [facility] [address] [place], [address] CO2 Normal 21.0-32.0 [facility] Comment on above: Result Comment: Canc elled via OM: Order cancelled - Patient discharged Performed By: #### L 500.2500, L501.5425, L100.0100 #### [facility] [address] [place], [address] CREAT,SERUM Normal 0.55-1.02 [facility] Comment on above: Result Comment: Canc elled via OM: Order cancelled - Patient discharged Performed By: #### L 500.2500, L501.5425, L100.0100 #### [facility] [address] [place], [address] EST GFR Normal >60 [facility] Comment on above: Result Comment: Canc elled via OM: Order cancelled - Patient discharged Performed By: #### L 500.2500, L501.5425, L100.0100 #### [facility] [address] [place], [address] EST GFR - AA Normal >60 [facility] Comment on above: Result Comment: Canc elled via OM: Order cancelled - Patient discharged Performed By: #### L 500.2500, L501.5425, L100.0100 #### [facility] [address] [place], [address] GAP Normal 5-15 [facility] Comment on above: Result Comment: Canc elled via OM: Order cancelled - Patient discharged Performed By: #### L 500.2500, L501.5425, L100.0100 #### [facility] [address] [place], [address] GLU Normal 74-106 [facility] Comment on above: Result Comment: Canc elled via OM: Order cancelled - Patient discharged Performed By: #### L 500.2500, L501.5425, L100.0100 #### [facility] [address] [place], [address] Potassium Normal 3.5-5.1 [facility] Comment on above: Result Comment: Canc elled via OM: Order cancelled - Patient discharged Performed By: #### L 500.2500, L501.5425, L100.0100 #### [facility] [address] [place], [address] Basic Metabolic Profile (BMP) Normal 136-145 [facility] Comment on above: Result Comment: Canc elled via OM: Order cancelled - Patient discharged Performed By: #### L 500.2500, L501.5425, L100.0100 #### [facility] [address] [place], [address] CBC W/Diff, Automatedon 01-2 Absolute Neut Normal 2.0-7.7 [facility] Comment on above: Result Comment: Canc elled via OM: Order cancelled - Patient discharged Performed By: #### L 500.2500, L501.5425, L100.0100 #### [facility] [address] [place], [address] HCT Normal 37-47 [facility] Comment on above: Result Comment: Canc elled via OM: Order cancelled - Patient discharged Performed By: #### L 500.2500, L501.5425, L100.0100 #### [facility] [address] [place], [address] HGB Normal 12.0-15.0 [facility] Comment on above: Result Comment: Canc elled via OM: Order cancelled - Patient discharged Performed By: #### L 500.2500, L501.5425, L100.0100 #### [facility] [address] [place], [address] MCH Normal 27.0-32.0 [facility] Comment on above: Result Comment: Canc elled via OM: Order cancelled - Patient discharged Performed By: #### L 500.2500, L501.5425, L100.0100 #### [facility] [address] [place], [address] MCHC Normal 32-36 [facility] Comment on above: Result Comment: Canc elled via OM: Order cancelled - Patient discharged Performed By: #### L 500.2500, L501.5425, L100.0100 #### [facility] [address] [place], [address] MCV Normal 81-99 [facility] Comment on above: Result Comment: Canc elled via OM: Order cancelled - Patient discharged Performed By: #### L 500.2500, L501.5425, L100.0100 #### [facility] [address] [place], [address] NEUT% Normal 47-70 [facility] Comment on above: Result Comment: Canc elled via OM: Order cancelled - Patient discharged Performed By: #### L 500.2500, L501.5425, L100.0100 #### [facility] [address] [place], [address] PLT Normal 150-450 [facility] Comment on above: Result Comment: Canc elled via OM: Order cancelled - Patient discharged Performed By: #### L 500.2500, L501.5425, L100.0100 #### [facility] [address] [place], [address] RBC Normal 4.2-5.4 [facility] Comment on above: Result Comment: Canc elled via OM: Order cancelled - Patient discharged Performed By: #### L 500.2500, L501.5425, L100.0100 #### [facility] [address] [place], [address] RDW CV Normal 11.6-14.6 [facility] Comment on above: Result Comment: Canc elled via OM: Order cancelled - Patient discharged Performed By: #### L 500.2500, L501.5425, L100.0100 #### [facility] [address] [place], [address] RDW SD Normal 35.1-43.9 [facility] Comment on above: Result Comment: Canc elled via OM: Order cancelled - Patient discharged Performed By: #### L 500.2500, L501.5425, L100.0100 #### [facility] [address] [place], [address] WBC Normal 4.4-11.0 [facility] Comment on above: Result Comment: Canc elled via OM: Order cancelled - Patient discharged Performed By: #### L 500.2500, L501.5425, L100.0100 #### [facility] [address] [place], [address] Absolute lymphocyte countOrd ered By: Jones Gregory on 09-30-2024 Lymphocytes Auto (Unsp spec) [#/Vol] 1.38 10*3/uL 0.83-4.51 [facility] Absolute neutrophil countOrd ered By: Jones Gregory on 09-30-2024 Neutrophils (Bld) [#/Vol] 13.6 10*3/uL High 2.0-7.7 [facility] Automated lymphocyte count a s percentage of total leukocytesOrdered By: Jones Gregory on 09-30-2024 Lymphocytes/100 WBC Auto (Unsp spec) 9.0 % Low 19-41 [facility] Basic Metabolic Profile (BMP )on 09-30-2024 BUN/CRE 38.9 RATIO High 10-20 [facility] Comment on above: Performed By: #### L 500.2500, L501.5425, L100.0100 #### [facility] [address] [place], [address] CA,Total 10.1 mg/dL Normal 8.5-10.1 [facility] Comment on above: Performed By: #### L 500.2500, L501.5425, L100.0100 #### [facility] [address] [place], [address] Chloride [Moles/Vol] 104 mmol/L Normal 98-107 [facility] Comment on above: Performed By: #### L 500.2500, L501.5425, L100.0100 #### [facility] [address] [place], [address] CO2 [Moles/Vol] 31.0 mmol/L Normal 21.0-32.0 [facility] Comment on above: Performed By: #### L 500.2500, L501.5425, L100.0100 #### [facility] [address] [place], [address] Creatinine [Mass/Vol] 0.67 mg/dL Normal 0.55-1.02 [facility] Comment on above: Result Comment: The validity of the calculated GFR GFRAA in patients over 70 years has not been determined. Clinical correlation is essential. Performed By: #### L 500.2500, L501.5425, L100.0100 #### [facility] [address] [place], [address] ECRCL 68.47 ml/min Normal [facility] Comment on above: Performed By: #### L 500.2500, L501.5425, L100.0100 #### [facility] [address] [place], [address] EST GFR - AA 113 mL/min Normal >60 [facility] Comment on above: Result Comment: Afri [place] GFR Calc Performed By: #### L 500.2500, L501.5425, L100.0100 #### [facility] [address] [place], [address] GAP 4 Low 5-15 [facility] Comment on above: Performed By: #### L 500.2500, L501.5425, L100.0100 #### [facility] [address] [place], [address] GFR/1.73 sq M.predicted among non-blacks MDRD (S/P/Bld) [Vol rate/Area] 93 mL/min/{1.73_m2} Normal >60 [facility] Comment on above: Result Comment: Non- GFR Calc Performed By: #### L 500.2500, L501.5425, L100.0100 #### [facility] [address] [place], [address] Glucose [Mass/Vol] 137 mg/dL High 74-106 [facility] Comment on above: Result Comment: Fast ing Glucose result greater than or equal to 126 mg/dL suggests DIABETES MELLITUS per A.D.A. criteria. Performed By: #### L 500.2500, L501.5425, L100.0100 #### [facility] [address] [place], [address] Potassium [Moles/Vol] 4.2 mmol/L Normal 3.5-5.1 [facility] Comment on above: Performed By: #### L 500.2500, L501.5425, L100.0100 #### [facility] [address] [place], [address] Sodium [Moles/Vol] 139 mmol/L Normal 136-145 [facility] Comment on above: Performed By: #### L 500.2500, L501.5425, L100.0100 #### [facility] [address] [place], [address] Urea nitrogen [Mass/Vol] 26 mg/dL High 7-18 [facility] Comment on above: Performed By: #### L 500.2500, L501.5425, L100.0100 #### [facility] [address] [place], [address] Basophil percentageOrdered B y: Jones Gregory on 09-30-2024 Basophils/100 WBC (Bld) 0.1 % 0-1 [facility] Blood urea nitrogen (BUN)/cr eatinine ratioOrdered By: Jones Gregory on 09-30-2024 Urea nitrogen/Creatinine [Mass ratio] 38.9 mg/mg High 10-20 [facility] CBC W/Diff, Automatedon 09-08 Absolute Lymph 1.38 X10 3/uL Normal 0.83-4.51 [facility] Comment on above: Performed By: #### L 500.2500, L501.5425, L100.0100 #### [facility] [address] [place], [address] Absolute Neut 13.6 X10 3/uL High 2.0-7.7 [facility] Comment on above: Performed By: #### L 500.2500, L501.5425, L100.0100 #### [facility] [address] [place], [address] Basophils/100 WBC (Bld) 0.1 % Normal 0-1 [facility] Comment on above: Performed By: #### L 500.2500, L501.5425, L100.0100 #### [facility] [address] [place], [address] Eosinophils/100 WBC (Bld) 0.0 % Normal 0-5 [facility] Comment on above: Performed By: #### L 500.2500, L501.5425, L100.0100 #### [facility] [address] [place], [address] Erythrocyte distribution width (RBC) [Ratio] 12.9 % Normal 11.6-14.6 [facility] Comment on above: Performed By: #### L 500.2500, L501.5425, L100.0100 #### [facility] [address] [place], [address] Hematocrit (Bld) [Volume fraction] 40.9 % Normal 37-47 [facility] Comment on above: Performed By: #### L 500.2500, L501.5425, L100.0100 #### [facility] [address] [place], [address] Hemoglobin (Bld) [Mass/Vol] 13.3 g/dL Normal 12.0-15.0 [facility] Comment on above: Performed By: #### L 500.2500, L501.5425, L100.0100 #### [facility] [address] [place], [address] IG% 0.600 Normal 0.0-0.9 [facility] Comment on above: Result Comment: IG% - Immature Granulocytes (promyelocytes, myelocytes and metamyelocytes) > 1% indicates that a LEFT SHIFT is Present. Performed By: #### L 500.2500, L501.5425, L100.0100 #### [facility] [address] [place], [address] Lymphocytes/100 WBC (Bld) 9.0 % Low 19-41 [facility] Comment on above: Performed By: #### L 500.2500, L501.5425, L100.0100 #### [facility] [address] [place], [address] MCH (RBC) [Entitic mass] 31.1 pg Normal 27.0-32.0 [facility] Comment on above: Performed By: #### L 500.2500, L501.5425, L100.0100 #### [facility] [address] [place], [address] MCHC (RBC) [Mass/Vol] 32.5 g/dL Normal 32-36 [facility] Comment on above: Performed By: #### L 500.2500, L501.5425, L100.0100 #### [facility] [address] [place], [address] MCV (RBC) [Entitic vol] 95.6 fL Normal 81-99 [facility] Comment on above: Performed By: #### L 500.2500, L501.5425, L100.0100 #### [facility] [address] [place], [address] Monocytes/100 WBC (Bld) 2.3 % Normal 0-10 [facility] Comment on above: Performed By: #### L 500.2500, L501.5425, L100.0100 #### [facility] [address] [place], [address] Neutrophils/100 WBC (Bld) 88.0 % High 47-70 [facility] Comment on above: Performed By: #### L 500.2500, L501.5425, L100.0100 #### [facility] [address] [place], [address] Nucleated RBC (Bld) [#/Vol] 0 10*3/uL Normal 0-5 [facility] Comment on above: Performed By: #### L 500.2500, L501.5425, L100.0100 #### [facility] [address] [place], [address] Platelet mean volume (Bld) [Entitic vol] 9.3 fL Normal 6.2-12.0 [facility] Comment on above: Performed By: #### L 500.2500, L501.5425, L100.0100 #### [facility] [address] [place], [address] Platelets (Bld) [#/Vol] 242 10*3/uL Normal 150-450 [facility] Comment on above: Performed By: #### L 500.2500, L501.5425, L100.0100 #### [facility] [address] [place], [address] RBC (Bld) [#/Vol] 4.28 10*6/uL Normal 4.2-5.4 [facility] Comment on above: Performed By: #### L 500.2500, L501.5425, L100.0100 #### [facility] [address] [place], [address] RDW SD 45.0 fl High 35.1-43.9 [facility] Comment on above: Performed By: #### L 500.2500, L501.5425, L100.0100 #### [facility] [address] [place], [address] WBC (Bld) [#/Vol] 15.4 10*3/uL High 4.4-11.0 [facility] Comment on above: Performed By: #### L 500.2500, L501.5425, L100.0100 #### [facility] [address] [place], [address] Carbon dioxide measurementOr dered By: Jones Gregory on 09-30-2024 CO2 [Moles/Vol] 31.0 mmol/L 21.0-32.0 [facility] Chloride measurementOrdered By: Jones Gregory on 09-30-2024 Chloride [Moles/Vol] 104 mmol/L 98-107 [facility] Eosinophil percentageOrdered By: Jones Gregory on 09-30-2024 Eosinophils/100 WBC (Bld) 0.0 % 0-5 [facility] Erythrocyte distribution wid th (RBC) [Ratio]Ordered By: Jones Gregory on 09-30-2024 Erythrocyte distribution width (RBC) [Entitic vol] 45.0 fL High 35.1-43.9 [facility] Erythrocyte distribution wid th ratioOrdered By: Jones Gregory on 09-30-2024 Erythrocyte distribution width (RBC) [Ratio] 12.9 % 11.6-14.6 [facility] Erythrocyte distribution wid th standard deviationOrdered By: Jones Gregory on 09-30-2024 Erythrocyte distribution width (RBC) [Ratio] 45.0 fl High 35.1-43.9 [facility] Estimated glomerular filtrat ion rate (GFR) AmericanOrdered By: Jones Gregory on 09-30-2024 Estimated GFR (MDRD) Amer 113 mL/min >60 [facility] Comment on above: GFR Calc Estimation of creatinine pietro aranceOrdered By: Jones Gregory on 09-30-2024 Estimated Creatinine Clearance Calc 68.47 ml/min [facility] Glomerular filtration rate ( GFR) estimationOrdered By: Jones Gregory on 09-30-2024 Estimated GFR (MDRD) Non-Af Amer 93 mL/min >60 [facility] Comment on above: Non- GFR Calc GFR/1.73 sq M.predicted among non-blacks MDRD (S/P/Bld) [Vol rate/Area] 93 mL/min/{1.73_m2} >60 [facility] Glucose measurementOrdered B y: Jones Gregory on 09-30-2024 Glucose [Mass/Vol] 137 mg/dL High 74-106 [facility] Comment on above: Fasting Glucose resu lt greater than or equal to 126 mg/dL suggests DIABETES MELLITUS per A.D.A. criteria. Hematocrit Auto (Bld) [Volum e fraction]Ordered By: Jones Gregory on 09-30-2024 Hematocrit (Bld) [Volume fraction] 40.9 % 37-47 [facility] Hemoglobin measurementOrdere d By: Jones Gregory on 09-30-2024 Hemoglobin (Bld) [Mass/Vol] 13.3 g/dL 12.0-15.0 [facility] Immature granulocytes/100 WB C Auto (Bld)Ordered By: Jones Gregory on 09-30-2024 Immature granulocytes/100 WBC (Bld) 0.600 % 0.0-0.9 [facility] Comment on above: IG% - Immature Granu locytes (promyelocytes, myelocytes and metamyelocytes) > 1% indicates that a LEFT SHIFT is Present. Lymphocytes Auto (Unsp spec) [#/Vol]Ordered By: Jones Gregory on 09-30-2024 Lymphocytes (Bld) [#/Vol] 1.38 10*3/uL 0.83-4.51 [facility] Lymphocytes/100 WBC Auto (Un sp spec)Ordered By: Jones Gregory on 09-30-2024 Lymphocytes/100 WBC (Bld) 9.0 % Low 19-41 [facility] MCV (mean corpuscular volume ) determinationOrdered By: Jones Gregory on 09-30-2024 MCV (RBC) [Entitic vol] 95.6 fL 81-99 [facility] Magnesiumon 09-30-2024 Magnesium [Mass/Vol] 2.2 mg/dL Normal 1.6-2.6 [facility] Comment on above: Performed By: #### L 500.2500, L501.5425, L100.0100 #### [facility] [address] [place] [address], [address] Magnesium measurementOrdered By: Jones Gregory on 09-30-2024 Magnesium [Mass/Vol] 2.2 mg/dL 1.6-2.6 [facility] Mean corpuscular hemoglobin (MCH) determinationOrdered By: Jones Gregory on 09-30-2024 MCH (RBC) [Entitic mass] 31.1 pg 27.0-32.0 [facility] Mean corpuscular hemoglobin concentration (MCHC) determinationOrdered By: Jones Gregory on 09-30-2024 MCHC (RBC) [Mass/Vol] 32.5 g/dL 32-36 [facility] Mean platelet volume determi nationOrdered By: Jones Gregory on 09-30-2024 Platelet mean volume (Bld) [Entitic vol] 9.3 fL 6.2-12.0 [facility] Monocyte percentageOrdered B y: Jones Gregory on 09-30-2024 Monocytes/100 WBC (Bld) 2.3 % 0-10 [facility] Neutrophil percentageOrdered By: Jones Gregory on 09-30-2024 Neutrophils/100 WBC (Bld) 88.0 % High 47-70 [facility] Nucleated red blood cell per centageOrdered By: Jones Gregory on 09-30-2024 Nucleated RBC/100 WBC (Bld) [Ratio] 0 % 0-5 [facility] Phosphoruson 09-30-2024 Phosphate [Mass/Vol] 3.9 mg/dL Normal 2.5-4.9 [facility] Comment on above: Performed By: #### L 500.2500, L501.5425, L100.0100 #### [facility] [address] [place], [address] Phosphorus measurementOrdere d By: Jones Gregory on 09-30-2024 Phosphorus Level 3.9 mg/dL 2.5-4.9 [facility] Platelet countOrdered By: Dontae Gregory on 09-30-2024 Platelets (Bld) [#/Vol] 242 10*3/uL 150-450 [facility] Potassium measurementOrdered By: Jones Gregory on 09-30-2024 Potassium [Moles/Vol] 4.2 mmol/L 3.5-5.1 [facility] RBC Auto (Bld) [#/Vol]Ordere d By: Jones Gregory on 09-30-2024 RBC (Bld) [#/Vol] 4.28 10*6/uL 4.2-5.4 [facility] Serum anion gap measurementO rdered By: Jones Gregory on 09-30-2024 Anion gap [Moles/Vol] 4 mmol/L Low 5-15 [facility] Serum or plasma calcium areli urement (mass/volume)Ordered By: Jones Gregory on 09-30-2024 Calcium [Mass/Vol] 10.1 mg/dL 8.5-10.1 [facility] Serum or plasma creatinine m easurement (mass/volume)Ordered By: Jones Gregory on 09-30-2024 Creatinine [Mass/Vol] 0.67 mg/dL 0.55-1.02 [facility] Comment on above: The validity of the calculated GFR & GFRAA in patients over 70 years has not been determined. Clinical correlation is essential. Serum or plasma urea nitroge n measurement (mass/volume)Ordered By: Jones Gregory on 09-30-2024 Urea nitrogen [Mass/Vol] 26 mg/dL High 7-18 [facility] Sodium levelOrdered By: Lewis Gregory on 09-30-2024 Sodium [Moles/Vol] 139 mmol/L 136-145 [facility] White blood cell (WBC) count Ordered By: Jones Gregory on 09-30-2024 WBC (Bld) [#/Vol] 15.4 10*3/uL High 4.4-11.0 [facility] Basic Metabolic Profile (BMP )on 09-29-2024 BUN/CRE 25.5 RATIO High 10-20 [facility] Comment on above: Performed By: #### L 500.2500, L501.5425, L100.0100 #### [facility] [address] [place], [address] CA,Total 10.0 mg/dL Normal 8.5-10.1 [facility] Comment on above: Performed By: #### L 500.2500, L501.5425, L100.0100 #### [facility] [address] [place], [address] Chloride [Moles/Vol] 105 mmol/L Normal 98-107 [facility] Comment on above: Performed By: #### L 500.2500, L501.5425, L100.0100 #### [facility] [address] [place], [address] CO2 [Moles/Vol] 27.0 mmol/L Normal 21.0-32.0 [facility] Comment on above: Performed By: #### L 500.2500, L501.5425, L100.0100 #### [facility] [address] [place], [address] Creatinine [Mass/Vol] 0.78 mg/dL Normal 0.55-1.02 [facility] Comment on above: Result Comment: The validity of the calculated GFR GFRAA in patients over 70 years has not been determined. Clinical correlation is essential. Performed By: #### L 500.2500, L501.5425, L100.0100 #### [facility] [address] [place], [address] ECRCL 68.51 ml/min Normal [facility] Comment on above: Performed By: #### L 500.2500, L501.5425, L100.0100 #### [facility] [address] [place], [address] EST GFR - AA 94 mL/min Normal >60 [facility] Comment on above: Result Comment: Afri can [place] GFR Calc Performed By: #### L 500.2500, L501.5425, L100.0100 #### [facility] [address] [place], [address] GAP 8 Normal 5-15 [facility] Comment on above: Performed By: #### L 500.2500, L501.5425, L100.0100 #### [facility] [address] [place], [address] GFR/1.73 sq M.predicted among non-blacks MDRD (S/P/Bld) [Vol rate/Area] 78 mL/min/{1.73_m2} Normal >60 [facility] Comment on above: Result Comment: Non- GFR Calc Performed By: #### L 500.2500, L501.5425, L100.0100 #### [facility] [address] [place], [address] Glucose [Mass/Vol] 178 mg/dL High 74-106 [facility] Comment on above: Result Comment: Fast ing Glucose result greater than or equal to 126 mg/dL suggests DIABETES MELLITUS per A.D.A. criteria. Performed By: #### L 500.2500, L501.5425, L100.0100 #### [facility] [address] [place], [address] Potassium [Moles/Vol] 4.0 mmol/L Normal 3.5-5.1 [facility] Comment on above: Performed By: #### L 500.2500, L501.5425, L100.0100 #### [facility] [address] [place], [address] Sodium [Moles/Vol] 140 mmol/L Normal 136-145 [facility] Comment on above: Performed By: #### L 500.2500, L501.5425, L100.0100 #### [facility] [address] [place], [address] Urea nitrogen [Mass/Vol] 20 mg/dL High 7-18 [facility] Comment on above: Performed By: #### L 500.2500, L501.5425, L100.0100 #### [facility] [address] [place], [address] CBC W/Diff, Automatedon 09-08 Absolute Lymph 0.97 X10 3/uL Normal 0.83-4.51 [facility] Comment on above: Performed By: #### L 500.2500, L501.5425, L100.0100 #### [facility] [address] [place], [address] Absolute Neut 5.7 X10 3/uL Normal 2.0-7.7 [facility] Comment on above: Performed By: #### L 500.2500, L501.5425, L100.0100 #### [facility] [address] [place], [address] Basophils/100 WBC (Bld) 0.1 % Normal 0-1 [facility] Comment on above: Performed By: #### L 500.2500, L501.5425, L100.0100 #### [facility] [address] [place], [address] Eosinophils/100 WBC (Bld) 0.0 % Normal 0-5 [facility] Comment on above: Performed By: #### L 500.2500, L501.5425, L100.0100 #### [facility] [address] [place], [address] Erythrocyte distribution width (RBC) [Ratio] 12.7 % Normal 11.6-14.6 [facility] Comment on above: Performed By: #### L 500.2500, L501.5425, L100.0100 #### [facility] [address] [place], [address] Hematocrit (Bld) [Volume fraction] 40.0 % Normal 37-47 [facility] Comment on above: Performed By: #### L 500.2500, L501.5425, L100.0100 #### [facility] [address] [place], [address] Hemoglobin (Bld) [Mass/Vol] 12.7 g/dL Normal 12.0-15.0 [facility] Comment on above: Performed By: #### L 500.2500, L501.5425, L100.0100 #### [facility] [address] [place], [address] IG% 0.400 Normal 0.0-0.9 [facility] Comment on above: Result Comment: IG% - Immature Granulocytes (promyelocytes, myelocytes and metamyelocytes) > 1% indicates that a LEFT SHIFT is Present. Performed By: #### L 500.2500, L501.5425, L100.0100 #### [facility] [address] [place], [address] Lymphocytes/100 WBC (Bld) 14.3 % Low 19-41 [facility] Comment on above: Performed By: #### L 500.2500, L501.5425, L100.0100 #### [facility] [address] [place], [address] MCH (RBC) [Entitic mass] 30.2 pg Normal 27.0-32.0 [facility] Comment on above: Performed By: #### L 500.2500, L501.5425, L100.0100 #### [facility] [address] [place], [address] MCHC (RBC) [Mass/Vol] 31.8 g/dL Low 32-36 [facility] Comment on above: Performed By: #### L 500.2500, L501.5425, L100.0100 #### [facility] [address] [place], [address] MCV (RBC) [Entitic vol] 95.2 fL Normal 81-99 [facility] Comment on above: Performed By: #### L 500.2500, L501.5425, L100.0100 #### [facility] [address] [place], [address] Monocytes/100 WBC (Bld) 0.9 % Normal 0-10 [facility] Comment on above: Performed By: #### L 500.2500, L501.5425, L100.0100 #### [facility] [address] [place], [address] Neutrophils/100 WBC (Bld) 84.3 % High 47-70 [facility] Comment on above: Performed By: #### L 500.2500, L501.5425, L100.0100 #### [facility] [address] [place], [address] Nucleated RBC (Bld) [#/Vol] 0 10*3/uL Normal 0-5 [facility] Comment on above: Performed By: #### L 500.2500, L501.5425, L100.0100 #### [facility] [address] [place], [address] Platelet mean volume (Bld) [Entitic vol] 9.3 fL Normal 6.2-12.0 [facility] Comment on above: Performed By: #### L 500.2500, L501.5425, L100.0100 #### [facility] [address] [place], [address] Platelets (Bld) [#/Vol] 224 10*3/uL Normal 150-450 [facility] Comment on above: Performed By: #### L 500.2500, L501.5425, L100.0100 #### [facility] [address] [place], [address] RBC (Bld) [#/Vol] 4.20 10*6/uL Normal 4.2-5.4 [facility] Comment on above: Performed By: #### L 500.2500, L501.5425, L100.0100 #### [facility] [address] [place], [address] RDW SD 44.1 fl High 35.1-43.9 [facility] Comment on above: Performed By: #### L 500.2500, L501.5425, L100.0100 #### [facility] [address] [place], [address] WBC (Bld) [#/Vol] 6.8 10*3/uL Normal 4.4-11.0 [facility] Comment on above: Performed By: #### L 500.2500, L501.5425, L100.0100 #### [facility] [address] [place], [address] 12 Lead EKGon 09-28-2024 12 Lead EKG [facility] [address] [place] [address] 12 Lead EKG 09/28/24 1334 MR#: [id number] Acct: [id number] Name: MARCIA MASCORRO Rep #: [id number] : 1955 68 From: Arnold Buck MD Attending Dr: Dr. Jones Gregory MD Status: DIS IN Ordering Dr: Keisha Williamson DO Date: 09/28/24 Location: [facility]3 Sex: F C Admitted: 09/28/24 Test Reason : SOB Blood Pressure : */* mmHG Vent. Rate : 65 BPM Atrial Rate : 65 BPM P-R Int : 128 ms QRS Dur : 94 ms QT Int : 406 ms P-R-T Axes : 82 53 81 degrees QTcB Int : 422 ms Normal sinus rhythm Cannot rule out Inferior infarct (cited on or before 21-Aug-2024) Possible Anterolateral infarct (cited on or before 21-Aug-2024) Abnormal ECG Confirmed by SAMUEL MARTINEZ, TABATHA ([id number]), web content editor SANTIAGO SMALL ([id number]) on 10/04/2024 7:07:57 AM Referred By: Confirmed By: TABATHA BUCK MD 10/04/24706 Date Arnold Buck MD CC: Dr. Jones Gregory MD; Dr. Gabriel Galvan MD; Dr. Keisha Williamson DO Signed Normal [facility] BNP (brain natriuretic pepti de measurement)Ordered By: Keisha Williamson on 09-28-2024 Natriuretic peptide B (Bld) [Mass/Vol] 274.6 pg/mL High 0-100 [facility] BNP,B-Type NATRIURETIC PEPTI Veronica 09-28-2024 Natriuretic peptide B (Bld) [Mass/Vol] 274.6 pg/mL High 0-100 [facility] Comment on above: Performed By: #### L 503.6620 #### [facility] [address] [place] [address]. [place], [address] Basic Metabolic Profile (BMP )on 09-28-2024 BUN/CRE 17.0 RATIO Normal 10-20 [facility] Comment on above: Order Comment: 1 Y Performed By: #### L 500.2500, L501.5425, L100.0100 #### [facility] [address] [place], [address] CA,Total 9.4 mg/dL Normal 8.5-10.1 [facility] Comment on above: Order Comment: 1 Y Performed By: #### L 500.2500, L501.5425, L100.0100 #### [facility] [address] [place], [address] Chloride [Moles/Vol] 103 mmol/L Normal 98-107 [facility] Comment on above: Order Comment: 1 Y Performed By: #### L 500.2500, L501.5425, L100.0100 #### [facility] [address] [place], [address] CO2 [Moles/Vol] 30.0 mmol/L Normal 21.0-32.0 [facility] Comment on above: Order Comment: 1 Y Performed By: #### L 500.2500, L501.5425, L100.0100 #### [facility] [address] [place], [address] Creatinine [Mass/Vol] 0.76 mg/dL Normal 0.55-1.02 [facility] Comment on above: Order Comment: 1 Y Result Comment: The validity of the calculated GFR GFRAA in patients over 70 years has not been determined. Clinical correlation is essential. Performed By: #### L 500.2500, L501.5425, L100.0100 #### [facility] [address] [place], [address] ECRCL 74.64 ml/min Normal [facility] Comment on above: Order Comment: 1 Y Performed By: #### L 500.2500, L501.5425, L100.0100 #### [facility] [address] [place], [address] EST GFR - AA 97 mL/min Normal >60 [facility] Comment on above: Order Comment: 1 Y Result Comment: Afri can [place] GFR Calc Performed By: #### L 500.2500, L501.5425, L100.0100 #### [facility] [address] [place], [address] GAP 4 Low 5-15 [facility] Comment on above: Order Comment: 1 Y Performed By: #### L 500.2500, L501.5425, L100.0100 #### [facility] [address] [place], [address] GFR/1.73 sq M.predicted among non-blacks MDRD (S/P/Bld) [Vol rate/Area] 80 mL/min/{1.73_m2} Normal >60 [facility] Comment on above: Order Comment: 1 Y Result Comment: Non- GFR Calc Performed By: #### L 500.2500, L501.5425, L100.0100 #### [facility] [address] [place], [address] Glucose [Mass/Vol] 100 mg/dL Normal 74-106 [facility] Comment on above: Order Comment: 1 Y Result Comment: Fast ing Glucose result from 100 to 125 mg/dL suggests IMPAIRED HOMEOSTASIS per A.D.A. criteria. Performed By: #### L 500.2500, L501.5425, L100.0100 #### [facility] [address] [place], [address] Potassium [Moles/Vol] 4.4 mmol/L Normal 3.5-5.1 [facility] Comment on above: Order Comment: 1 Y Performed By: #### L 500.2500, L501.5425, L100.0100 #### [facility] [address] [place], [address] Sodium [Moles/Vol] 138 mmol/L Normal 136-145 [facility] Comment on above: Order Comment: 1 Y Performed By: #### L 500.2500, L501.5425, L100.0100 #### [facility] [address] [place], [address] Urea nitrogen [Mass/Vol] 13 mg/dL Normal 7-18 [facility] Comment on above: Order Comment: 1 Y Performed By: #### L 500.2500, L501.5425, L100.0100 #### [facility] [address] [place], [address] CBC W/Diff, Automatedon 09-08-2024 Absolute Lymph 2.14 X10 3/uL Normal 0.83-4.51 [facility] Comment on above: Performed By: #### L 500.2500, L501.5425, L100.0100 #### [facility] [address] [place], [address] Absolute Neut 4.6 X10 3/uL Normal 2.0-7.7 [facility] Comment on above: Performed By: #### L 500.2500, L501.5425, L100.0100 #### [facility] [address] [place], [address] Basophils/100 WBC (Bld) 0.8 % Normal 0-1 [facility] Comment on above: Performed By: #### L 500.2500, L501.5425, L100.0100 #### [facility] [address] [place], [address] Eosinophils/100 WBC (Bld) 2.7 % Normal 0-5 [facility] Comment on above: Performed By: #### L 500.2500, L501.5425, L100.0100 #### [facility] [address] [place], [address] Erythrocyte distribution width (RBC) [Ratio] 12.8 % Normal 11.6-14.6 [facility] Comment on above: Performed By: #### L 500.2500, L501.5425, L100.0100 #### [facility] [address] [place], [address] Hematocrit (Bld) [Volume fraction] 40.4 % Normal 37-47 [facility] Comment on above: Performed By: #### L 500.2500, L501.5425, L100.0100 #### [facility] [address] [place], [address] Hemoglobin (Bld) [Mass/Vol] 13.4 g/dL Normal 12.0-15.0 [facility] Comment on above: Performed By: #### L 500.2500, L501.5425, L100.0100 #### [facility] [address] [place], [address] IG% 0.300 Normal 0.0-0.9 [facility] Comment on above: Result Comment: IG% - Immature Granulocytes (promyelocytes, myelocytes and metamyelocytes) > 1% indicates that a LEFT SHIFT is Present. Performed By: #### L 500.2500, L501.5425, L100.0100 #### [facility] [address] [place], [address] Lymphocytes/100 WBC (Bld) 28.4 % Normal 19-41 [facility] Comment on above: Performed By: #### L 500.2500, L501.5425, L100.0100 #### [facility] [address] [place], [address] MCH (RBC) [Entitic mass] 31.4 pg Normal 27.0-32.0 [facility] Comment on above: Performed By: #### L 500.2500, L501.5425, L100.0100 #### [facility] [address] [place], [address] MCHC (RBC) [Mass/Vol] 33.2 g/dL Normal 32-36 [facility] Comment on above: Performed By: #### L 500.2500, L501.5425, L100.0100 #### [facility] [address] [place], [address] MCV (RBC) [Entitic vol] 94.6 fL Normal 81-99 [facility] Comment on above: Performed By: #### L 500.2500, L501.5425, L100.0100 #### [facility] [address] [place], [address] Monocytes/100 WBC (Bld) 6.6 % Normal 0-10 [facility] Comment on above: Performed By: #### L 500.2500, L501.5425, L100.0100 #### [facility] [address] [place], [address] Neutrophils/100 WBC (Bld) 61.2 % Normal 47-70 [facility] Comment on above: Performed By: #### L 500.2500, L501.5425, L100.0100 #### [facility] [address] [place], [address] Nucleated RBC (Bld) [#/Vol] 0 10*3/uL Normal 0-5 [facility] Comment on above: Performed By: #### L 500.2500, L501.5425, L100.0100 #### [facility] [address] [place], [address] Platelet mean volume (Bld) [Entitic vol] 8.9 fL Normal 6.2-12.0 [facility] Comment on above: Performed By: #### L 500.2500, L501.5425, L100.0100 #### [facility] [address] [place], [address] Platelets (Bld) [#/Vol] 230 10*3/uL Normal 150-450 [facility] Comment on above: Performed By: #### L 500.2500, L501.5425, L100.0100 #### [facility] [address] [place], [address] RBC (Bld) [#/Vol] 4.27 10*6/uL Normal 4.2-5.4 [facility] Comment on above: Performed By: #### L 500.2500, L501.5425, L100.0100 #### [facility] [address] [place], [address] RDW SD 43.9 fl Normal 35.1-43.9 [facility] Comment on above: Performed By: #### L 500.2500, L501.5425, L100.0100 #### [facility] [address] [place], [address] WBC (Bld) [#/Vol] 7.5 10*3/uL Normal 4.4-11.0 [facility] Comment on above: Performed By: #### L 500.2500, L501.5425, L100.0100 #### [facility] [address] [place], [address] Chest 1 View (Portable)on Chest 1 View (Portable) [facility] Imaging Services [address] [place] [address] Chest 1 View (Portable) MR#: [id number] Acct: [id number] Name: MARCIA MASCORRO Rep #: [id number] : 1955 F 68 From: Ross Denton MD PCP: Dr. Gabriel Galvan MD Status: REG ER Study: Chest 1 View (Portable) Date of Exam: 09/28/24 Exam# [id number] Ordering Dr: Keisha Williamson DO [id number] EXAM: XR CHEST, 1 VIEW CLINICAL INDICATION: chest pain TECHNIQUE: Frontal view of the chest. COMPARISON: No relevant prior studies available. FINDINGS: LUNGS AND PLEURAL SPACES: Pleural-parenchymal scarring at the right base. No consolidation. No pleural effusions or pneumothorax. HEART: See below. MEDIASTINUM: At least moderate size hiatal hernia. Enlarged cardiac silhouette concerning for cardiomegaly and/or pericardial effusion. BONES/JOINTS: Degenerative changes of the spine. No acute fracture. SOFT TISSUES: Unremarkable. VASCULATURE: Atherosclerotic calcifications of the nonenlarged thoracic aorta. Thickened right minor fissure,. RAD/Chest 1 View (Portable) IMPRESSION: No acute cardiopulmonary disease. Electronically Signed: Ross Denton MD at 14:37 EST Reading Location ID and State: [facility] / [place] Tel , Service support , CC: Dr. Gabriel Galvan MD; Dr. Keisha Williamson DO Service Consultant: Signed Normal [facility] Emergency Department Summary on 09-28-[address] [facility] Medical Records Department [address] [place] [id number] Emergency Department Summary 09/28/24 MR#: [id number] Acct: [id number] Name: MARCIA MASCORRO Rep #: [id number] : 1955 68 From: Keisha Williamson DO PCP: Dr. Gabriel Galvan MD Status:REG ER Location: ED HPI History of Present Illness Chief Complaint: Cough Detail of Chief Complaint: Cough and shortness of breath Informant: patient Narrative Narrative: Patient presents with cough and some shortness of breath that started about 5 days ago. She said multiple sick contacts. Patient has history of COPD but does not wear home O2. She denies fever. She describes intermittent chest pain especially with breathing and sharp in both lungs. Denies recent travel or surgery. Patient tells me she is on Xarelto for history of DVTs. [facility] Medical History Wears glasses Post-menopausal Arthritis History of renal disease High cholesterol DVT (deep venous thrombosis) Easy bruising Excessive bleeding Back pain Injury of back History of ulceration Difficulty chewing Gastric reflux Shortness of breath on exertion Hoarseness Chronic cough Leg cramps History of pain when walking History of edema History of echocardiogram History of stress test Cardiology follow-up encounter History of CHF (congestive heart failure) History of irregular heartbeat Chest pain Bullous emphysema COPD with asthma Esophagitis, unspecified without bleeding Unspecified combined 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 Other chronic pain Elevated troponin Sustained SVT Depression Osteoporosis Kidney stones Smoker Myocardial infarct History of non-ST elevation myocardial infarction (NSTEMI) (09/01/21) Essential hypertension Old anterior wall myocardial infarction Ischemic cardiomyopathy Opiate dependence Anxiety and depression TIA (transient ischemic attack) Obesity (BMI 30.0-34.9) EVELYN (obstructive sleep apnea) Personal history of transient ischemic attack (TIA), and cerebral infarction without residual deficits COPD (chronic obstructive pulmonary disease) Calculus of left kidney GERD (gastroesophageal reflux disease) Hyperlipidemia Atherosclerotic heart disease of [place] coronary artery without angina pectoris Tobacco abuse Home Medications ???Medication ???Instructions ???Recorded ???Last Taken ???Type clopidogrel 75 mg tablet (Plavix) 75 mg PO DAILY 30 days #30 tabs 01/04/23 09/25/23 Rx lisinopril 2.5 mg tablet 2.5 mg PO DAILY 30 days #30 tabs 01/04/23 06/24/23 Rx ondansetron 4 mg disintegrating 4 mg PO Q8H PRN PRN Nausea #12 tabs 01/13/23 Unknown Rx tablet albuterol sulfate 90 mcg/actuation 2 puff inhalation Q6H PRN 02/17/23 Unknown Rx aerosol inhaler shortness of breath or wheezing #8.5 grams budesonide-formoterol HFA 160 1 puff inhalation BID #10.2 grams 02/17/23 Unknown Rx mcg-4.5 mcg/actuation aerosol inhaler (Symbicort) inhalational spacing device #1 ea 02/17/23 Unknown Rx (Aerochamber MV spacer) tiotropium bromide 2.5 2 puff inhalation DAILY #4 grams 02/17/23 Unknown Rx mcg/actuation mist for inhalation (Spiriva Respimat) pantoprazole 40 mg tablet,delayed 40 mg PO Q12H #60 tabs 06/24/23 09/28/23 Rx release lorazepam 1 mg tablet (Ativan) 1 mg PO BID PRN anxiety 07/16/23 09/28/23 History amiodarone 200 mg tablet 200 mg PO DAILY 07/22/23 Unknown History carvedilol 6.25 mg tablet 6.25 mg PO Q12H 07/29/23 09/28/23 History furosemide 20 mg tablet 20 mg PO Q12H 07/29/23 Unknown History gabapentin 400 mg capsule 400 mg PO Q8H 07/29/23 09/28/23 History nitroglycerin 0.4 mg sublingual 0.4 mg buccal Q5M PRN chest pain 07/29/23 Unknown History tablet oxycodone myristate 9 mg capsule 13.5 mg PO Q12H 07/29/23 Unknown History sprinkle extended release 12 hr(DON'T CRUSH) (Xtampza ER) sucralfate 1 gram tablet 1 g PO Q8H 07/29/23 Unknown History albuterol sulfate 2.5 mg/3 mL 2.5 mg continuous nebulization Q6H 09/05/23 Unknown History (0.083 %) solution for nebulization PRN shortness of breath or wheezing melatonin 3 mg capsule 3 mg PO QHS 09/05/23 Unknown History cyclobenzaprine 5 mg tablet 5 mg PO TID PRN muscle spasm #15 11/30/23 Unknown Rx tabs carvedilol 12.5 mg tablet (Coreg) 12.5 mg PO BID #60 tabs 07/07/24 Unknown Rx prednisone 20 mg tablet 40 mg (2 x 20 mg) PO DAILY 5 days 08/21/24 Unknown Rx #10 tabs Allergy/AdvReac Type Severity Reaction Status Date / Time No Known Allergies Allergy Verified 08/21/24 21:05 Family History Mother Hypertension CAD (coronary artery disease) CVA (cerebral vascular accident) Myocardial infarction Grandmother Myocardial infarction (more content not included)... Normal [facility] H&P Exam - Hospitalist [facility] Medical Records Department [address] [place] [address] H P Exam - Hospitalist 09/28/24 1640 MR#: [id number] Acct: [id number] Name: MARCIA MASCORRO Rep #: [id number] : 1955 68 From: Gloria Madrid MD PCP: Dr. Gabriel Galvan MD Status:ADM IN Location: [facility] [id number] HPI - General General Date of Admission: 09/28/24 Date of Service: 09/28/24 Chief Complaint: SOB HPI Narrative MARCIA MASCORRO, is a 68 F with history of COPD, CHF, GERD, LV thrombus in 2022, anxiety, chronic pain who presented [facility] ED 09/28/2024 with cough and shortness of breath for 5 days with multiple sick contacts. In the ED patient wheezing and had no infiltrate on chest x-ray and desaturated to 86% on room air and placed on 2 L. She was given methylprednisolone and DuoNeb and hospitalist contacted for admission. Patient evaluated at bedside and reports increasing shortness of breath for the past 1 week, has a chronic cough but this is also increased over the past several days. She has felt like maybe she has had a fever but has not checked for this, does report multiple sick contacts. Has some chronic intermittent left-sided chest pain for years which comes and goes and has not changed. Neuropathy in her hands and feet, no significant lower extremity swelling. Does stay constipated given her home medications and reports she intermittently has some right sided abdominal and flank pain and is post to have a hernia repaired, also at times think she has frothy urine and has a history of abnormal cells in her esophagus and has to have EGDs every 6 months per patient. [facility] Medical History Wears glasses Post-menopausal Arthritis History of renal disease High cholesterol DVT (deep venous thrombosis) Easy bruising Excessive bleeding Back pain Injury of back History of ulceration Difficulty chewing Gastric reflux Shortness of breath on exertion Hoarseness Chronic cough Leg cramps History of pain when walking History of edema History of echocardiogram History of stress test Cardiology follow-up encounter History of CHF (congestive heart failure) History of irregular heartbeat Chest pain Bullous emphysema COPD with asthma Esophagitis, unspecified without bleeding Unspecified combined 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 Other chronic pain Elevated troponin Sustained SVT Depression Osteoporosis Kidney stones Smoker Myocardial infarct History of non-ST elevation myocardial infarction (NSTEMI) (09/01/21) Essential hypertension Old anterior wall myocardial infarction Ischemic cardiomyopathy Opiate dependence Anxiety and depression TIA (transient ischemic attack) Obesity (BMI 30.0-34.9) EVELYN (obstructive sleep apnea) Personal history of transient ischemic attack (TIA), and cerebral infarction without residual deficits COPD (chronic obstructive pulmonary disease) Calculus of left kidney GERD (gastroesophageal reflux disease) Hyperlipidemia Atherosclerotic heart disease of [place] coronary artery without angina pectoris Tobacco abuse Home Medications ???Medication ???Instructions ???Recorded ???Last Taken ???Type clopidogrel 75 mg tablet (Plavix) 75 mg PO DAILY 30 days #30 tabs 01/04/23 09/27/24 Rx albuterol sulfate 90 mcg/actuation 2 puff inhalation Q6H PRN 02/17/23 Unknown Rx aerosol inhaler shortness of breath or wheezing #8.5 grams budesonide-formoterol HFA 160 1 puff inhalation BID #10.2 grams 02/17/23 09/27/24 Rx mcg-4.5 mcg/actuation aerosol inhaler (Symbicort) inhalational spacing device #1 ea 02/17/23 Unknown Rx (Aerochamber MV spacer) tiotropium bromide 2.5 2 puff inhalation DAILY #4 grams 02/17/23 09/27/24 Rx mcg/actuation mist for inhalation (Spiriva Respimat) lorazepam 1 mg tablet (Ativan) 1 mg PO TID PRN anxiety 07/16/23 09/27/24 History amiodarone 200 mg tablet 200 mg PO DAILY 07/22/23 09/27/24 History furosemide 20 mg tablet 20 mg PO Q12H 07/29/23 Unknown History gabapentin 400 mg capsule 400 mg PO Q6H 07/29/23 09/27/24 History nitroglycerin 0.4 mg sublingual 0.4 mg buccal Q5M PRN chest pain 07/29/23 Unknown History tablet sucralfate 1 gram tablet 1 g PO Q8H 07/29/23 09/27/24 History albuterol sulfate 2.5 mg/3 mL 2.5 mg continuous nebulization Q6H 09/05/23 Unknown History (0.083 %) solution for nebulization PRN shortness of breath or wheezing melatonin 3 mg capsule 3 mg PO QHS 09/05/23 09/27/24 History carvedilol 12.5 mg tablet (Coreg) 12.5 mg PO BID #60 tabs 07/07/24 09/27/24 Rx albuterol 90 mcg-budesonide 80 1 - 2 inh inhalation BID PRN 09/28/24 09/27/24 History mcg/actuation HFA aerosol inhaler shortness of breath (Airsupra) atorvastatin 40 mg tablet 40 mg PO QHS 09/28/24 09/27/24 History (more content not included)... Normal [facility] Influenza virus A and B and SARS-CoV-2 (COVID-19) and Respiratory syncytial virus RNAOrdered By: Keisha Williamson on 09-28-2024 SARS-CoV-2 (COVID-19) RNA KAYDEN+probe Ql (Unsp spec) [facility] L501.4020on 09-28-2024 TROPONIN-I HS 13 pg/mL Normal 3.0-54.0 [facility] Comment on above: Result Comment: Plea se Note: New Test Units and Gender Specific Reference Ranges. For more information see Policy Stat Procedure [place] High Sensitivity Troponin (TNIH) and attachments. Performed By: #### L 400.0001 #### [facility] [address] [place], [address] L501.5425on 09-28-2024 TROPONIN-I HS 14 pg/mL Normal 3.0-54.0 [facility] Comment on above: Order Comment: 1 Y Result Comment: Plea se Note: New Test Units and Gender Specific Reference Ranges. For more information see Policy Stat Procedure [place] High Sensitivity Troponin (TNIH) and attachments. Performed By: #### L 500.2500, L501.5425, L100.0100 #### [facility] [address] [place], [address] M100.678on 09-28-2024 SARS-CoV-2 (COVID-19) RNA KAYDEN+probe Ql (Unsp spec) RSV ERROR SARS-CoV-2 (COVID 19) Negative INFLUENZA A Negative INFLUENZA B Negative RSV PCR Negative * This is an amended result. * A prior result that was reported as final has been changed. 09/29/24 0655 by NANCY Normal [facility] Comment on above: Performed By: #### M 100.678 ####[facility] [address] [place], [address] RESPIRATORY PANEL MOLECULARo n 09-28-2024 RP PANEL Normal Reference Ran ge = Not Detected Resp path DNA+RNA Pnl Resp KAYDEN+probe Nucleic acid amplification test method ADENOVIRUS Not Detected INFLUENZA A Not Detected INFLUENZA A (SUBTYPE H1) Not Detected INFLUENZA A (SUBTYPE H3) Not Detected INFLUENZA B Not Detected HUMAN METAPHNEUMO Not Detected PARAINFLUENZA 1 Not Detected PARAINFLUENZA 2 Not Detected PARAINFLUENZA 3 Not Detected PARAINFLUENZA 4 Not Detected RHINOVIRUS Not Detected RSV A Not Detected RSV B Not Detected Normal [facility] Comment on above: Performed By: #### L 500.2500, L501.5425, L100.0100 #### [facility] [address] [place], [address] Respiratory pathogens DNA an d RNA panel KAYDEN+probe (Resp)Ordered By: Gloria Madrid on 09-28-2024 Respiratory Panel (PCR) [facility] Respiratory pathogens detect ion panel by molecular detection methodOrdered By: Gloria Madrid on 09-28-2024 Respiratory pathogens DNA and RNA panel KAYDEN+probe (Resp) [facility] Troponin IOrdered By: ED PRO VIDER on 09-28-2024 Troponin I 13 pg/mL 3.0-54.0 [facility] Troponin I High Sensitivity 13 pg/mL 3.0-54.0 [facility] Comment on above: Please Note: New Amanda t Units and Gender Specific Reference Ranges. For more information see Policy Stat Procedure [place] High Sensitivity Troponin (TNIH) and attachments. CNPNon 09-27-2024 CNPN Telephone (INTMWS) ----- MARCIA MASCORRO ([id number]) 1955 [facility] Date Time Provider Department 09/27/24 GABRIEL GALVAN INTMWS During your visit today, we recorded the following information about you: Linh Villalobos RN 09/27/2024 10:22 AM Signed Patient calls and states that she would like to have her morning medications taken up to her apartment at night due to there not being staff there early in the morning. Patient was told that provider writes a letter giving permission for morning medications to be taken up at night then staff will give patient morning medications at night to be take early in the morning. Patient asking if provider can write this? Patient states that letter can be faxed to [facility]. Patient also states that she continues to have issues with cough. Patient asking if provider can send in prescription for Z-arabella? Patient's pharmacy is [facility]. Please review and advise, WENDY Horowitz Krystle, RN 09/28/2024 12:30 PM Signed Patient calls to check on status of message below. Notified patient that provider is out today. Patient wanting TRAINING MANAGER to send in order for antibiotic for cough. Patient reports she wants something done before she ends up in the hospital. Asked patient if she had tried anything OTC and patient reports she has tried everything. Patient didn't give any specific medications tried. Patient supposed to be following up with pulmonology for COPD and pulmonary emphysema. Patient has not scheduled yet. WENDY Lucas Liza D, MD 09/28/2024 6:07 PM Signed 1) Need more information than patient has a cough to determine whether needs an antibiotic if she is not able to come in for an appointment. What signs of infection? Or is COPD just not adequately controlled? Help with appointment with Dr. Torres/pulmonology 2) May print my electronically signed order to fax to [facility] about giving her morning meds the night prior for next early AM doses Jackeline Franz, WENDY 09/29/2024 9:25 AM Signed Attempted to call pt with no answer and VM is full. Called and LM for daughter Marleny to call back. Can pt come in for an appt? Also appears there may be a problem with consult order Dr. Galvan put in on 09/14/24. Having PSS look into it so pt can get an appt with Dr. Brian modi. Gabriel Galvan MD 09/29/2024 10:49 PM Signed Patient admitted to [facility] yesterday 09/28 with COPD exacerbation I accidentally deleted the pended letter. Drafted another one to print to sign. Melissa Leon LPN 09/30/2024 12:01 PM Signed Letter printed for PCP to sign. MARGO Turcios Julia, LPN 10/11/2024 8:59 AM Signed Order/Letter faxed to [facility] Allergies As of Date: 09/27/2024 Noted Allergy Reaction CONTRAST DYE (IODINE) 12/20/2023 10 - Anaphylaxis Date Reviewed: 09/14/2024 Reviewed by: Melissa Leon LPN - Fully Assessed Reason for Visit: Patient Question [9247] Prescriptions as of 10/11/2024 - albuterol-budesonide HFA (AIRSUPRA) 90-80 mcg/actuation inhaler Inhale 2 Puffs as instructed every 2 hours as needed for wheezing/shortness of breath. Do not take more than 12 inhalations in a 24 hour period. - Bisacodyl (DULCOLAX) 5 mg tab Take 1 tablet by mouth once daily as needed for constipation. - DULoxetine (CYMBALTA) 30 mg capsule Take 1 capsule by mouth once daily. - sucralfate (CARAFATE) 100 mg/mL suspension Take 10 mL by mouth four times daily. (take prior to meals and at bedtime) - promethazine (PHENERGAN) 25 mg tablet Take 1 tablet by mouth every 6 hours as needed. - spironolactone (ALDACTONE) 25 mg tablet Take 1 tablet by mouth once daily. - polyethylene glycol 3350 (MIRALAX) 17 gram/dose powder Take 17 g by mouth once daily. Dissolve dose in 4 - 8 ounces of liquid and take as directed. - omeprazole (PRILOSEC) 40 mg capsule Take 1 capsule by mouth once daily. - Nutritional Supplements (OPTIMENTAL) liqd Take 237 mL by mouth once daily. Okay with what insurance covers - Diaper,Brief, Adult,Disposable (DEPEND EASY FIT UNDERGARMENTS) Size Large pull up. Change depends once every 1-2 hrs. Dx incontinence (788.30) Prolapsed bladder (618.01) - atorvastatin (LIPITOR) 40 mg tablet Take 1 tablet by mouth daily at bedtime. - senna-docusate (SENNA PLUS) 8.6-50 mg per tablet Take 1 tablet by mouth every morning AND 1 tablet daily at bedtime. - tiotropium bromide (SPIRIVA RESPIMAT) 2.5 mcg/actuation inhaler Inhale 2 Puffs as instructed once daily. Inhale two puffs once daily. - sodium phosphate-sodium bisphosphate (FLEET) enema 133 mL by RECTAL route as needed for constipation. - ondansetron (ZOFRAN) 4 mg tablet Take 1 tablet by mouth every 8 hours as needed for nausea/vomiting. - magnesium hydroxide (MILK OF MAGNESIA) 400 mg/5 mL suspension Take 30 mL by mouth once daily as needed for constipation. (more content not included)... Normal [facility] 25(OH)D3 SerPl-ncon 2024 25-hydroxyvitamin D3 [Mass/Vol] 33.1 ng/mL Normal 31.0-80.0 [facility] Comment on above: Order Comment: Speci men Type: BLOOD SPECIMENOrdering Facility: [facility] Address: [address] [place] [address] Performed By: #### 1 989-3 ####[facility] LABCLIA [id number] [place] [address] [place] CBC panel Auto (Bld)on 09-14 Erythrocyte distribution width (RBC) [Ratio] 13.2 % Normal 11.5-15.0 [facility] Comment on above: Order Comment: Speci men Type: BLOOD SPECIMENOrdering Facility: [facility] Address: [address] [place] [address] Performed By: #### 5 8410-2 ####[facility] LABCLIA [id number] [place] [address] [place] Hematocrit (Bld) [Volume fraction] 42.6 % Normal 36.0-46.0 [facility] Comment on above: Order Comment: Speci men Type: BLOOD SPECIMENOrdering Facility: [facility] Address: [address] [place] [address] Performed By: #### 5 8410-2 ####[facility] LABCLIA [id number] [place] [address] [place] Hemoglobin (Bld) [Mass/Vol] 13.7 g/dL Normal 11.5-15.5 [facility] Comment on above: Order Comment: Speci men Type: BLOOD SPECIMENOrdering Facility: [facility] Address: [address] [place] [address] Performed By: #### 5 8410-2 ####[facility] LABCLIA [id number] [place] [address] [place] MCH (RBC) [Entitic mass] 31.8 pg Normal 26.0-34.0 [facility] Comment on above: Order Comment: Speci men Type: BLOOD SPECIMENOrdering Facility: [facility] Address: [address] [place] [address] Performed By: #### 5 8410-2 ####[facility] LABCLIA [id number] [place] [address] [place] MCHC (RBC) [Mass/Vol] 32.2 g/dL Normal 30.5-36.0 [facility] Comment on above: Order Comment: Speci men Type: BLOOD SPECIMENOrdering Facility: [facility] Address: [address] [place] [address] Performed By: #### 5 8410-2 ####[facility] LABCLIA [id number] [place] [address] [place] MCV (RBC) [Entitic vol] 98.8 fL Normal 80.0-100.[address] [facility] Comment on above: Order Comment: Speci men Type: BLOOD SPECIMENOrdering Facility: [facility] Address: [address] [place] [address] Performed By: #### 5 8410-2 ####[facility] LABIA [id number] [place] [address] [place] Nucleated RBC (Bld) [#/Vol] 10*3/uL Normal <0.01 [facility] Comment on above: Order Comment: Speci men Type: BLOOD SPECIMENOrdering Facility: [facility] Address: [address] [place] [address] Performed By: #### 5 8410-2 ####[facility] LABIA [id number] [place] [address] [place] Platelet mean volume (Bld) [Entitic vol] 10.2 fL Normal 9.0-12.7 [facility] Comment on above: Order Comment: Speci men Type: BLOOD SPECIMENOrdering Facility: [facility] Address: [address] [place] [address] Performed By: #### 5 8410-2 ####[facility] LABIA [id number] [place] [address] [place] Platelets (Bld) [#/Vol] 223 10*3/uL Normal 150-400 [facility] Comment on above: Order Comment: Speci men Type: BLOOD SPECIMENOrdering Facility: [facility] Address: [address] [place] [address] Performed By: #### 5 8410-2 ####[facility] LABCLIA [id number] [place] [address] [place] RBC (Bld) [#/Vol] 4.31 10*6/uL Normal 3.90-5.20 [facility] Comment on above: Order Comment: Speci men Type: BLOOD SPECIMENOrdering Facility: [facility] Address: [address] [place] [address] Performed By: #### 5 8410-2 ####[facility] LABCLIA [id number] [place] [address] [place] WBC (Bld) [#/Vol] 8.30 10*3/uL Normal 3.70-11.00 [facility] Comment on above: Order Comment: Speci men Type: BLOOD SPECIMENOrdering Facility: [facility] Address: [address] [place] [address] Performed By: #### 5 8410-2 ####[facility] LABCLIA [id number] [address] [place] CNOVon 09-14-2024 CNOV Office Visit (INTMWS ) ----- MARCIA MASCORRO ([id number]) 1955 F [facility] Date Time Provider Department 09/14/24 2:40 PM GABRIEL GALVAN INTMWS During your visit today, we recorded the following information about you: Temperature Pulse Respiration Blood pressure 97.6 degrees 82/minute 16/minute 124/72 Weight 85.1 kg Gabriel Galvan MD 09/14/2024 4:40 PM Signed This note was created using Playteauriter. Subjective Marcia Mascorro is a 68 year old female. Patient presents with: F/U 3 Month SUBJECTIVE: Marcia Mascorro is a 68 year old year old lady here today for 3 month follow up appointment for review of medical conditions. Marcia Mascorro is a 68-year-old female with a history of COPD, emphysema, neuropathy, and chronic constipation, presenting for a follow-up visit and multiple medication refills. Marcia reports chronic lung pain, which she attributes to her history of COPD and emphysema. She experiences constant pain in her lungs, particularly when taking deep breaths. She is currently using Airsupra for acute episodes but expresses a need for a pulmonary consultation due to the severity of her symptoms. She also reports severe constipation, stating that she often cries due to the pain. She is currently using Dulcolax suppositories but requests a switch to oral tablets. She also inquires about increasing her senna dosage from one tablet twice daily to two tablets twice daily, as she feels the current dosage is ineffective. She has a history of using Miralax, which she found helpful, and expresses a desire to resume its use. Marcia is also experiencing worsening neuropathy, particularly in her feet and ankles, with symptoms of burning, tingling, and loss of sensation. She reports that her toes are becoming crippled and that she has difficulty walking. She is currently under the care of a bobbin painter, Dr. Forrest, and requests a referral to a home health lvn for further evaluation. Additionally, Marcia has a history of gastroesophageal reflux disease (GERD) and is currently taking Carafate in pill form. She requests a switch to the liquid form due to difficulty swallowing. She also inquires about a prescription for Phenergan, stating that it is more effective for her nausea than Zofran. Marcia is currently taking potassium supplements but reports difficulty swallowing the large pills. She requests a switch to smaller pills or a liquid form. She also expresses a desire to reduce her Lasix dosage from two tablets daily to one tablet daily, as she feels dehydrated and experiences charley horses in her groin. Marcia is scheduled for a surgical evaluation at the [facility] and requests a referral to a humanities and languages professor for a pre-operative evaluation. She also mentions a history of precancerous cells in her esophagus and is awaiting further evaluation by her test cell technician. PAST MEDICAL HISTORY Diagnosis Date Abdominal aortic aneurysm (HCC) JOVANY (acute kidney injury) (HCC) Anaphylactic reaction due to contrast Anxiety Retana's esophagus Bile leak, postoperative CAD (coronary artery disease) CHF (congestive heart failure) (HCC) Chronic back pain Chronic pain low back, sees pain MGT: Dr. Nayak Compression fracture of thoracic vertebra (HCC) COPD (chronic obstructive pulmonary disease) (HCC) Depression Diabetes mellitus (HCC) Diverticulosis Essential hypertension, benign Sees Dr. Best GERD (gastroesophageal reflux disease) Hyperthyroidism Incontinence 07/07/2014 LV (left ventricular) mural thrombus 12/01/2023 Mixed hyperlipidemia Obesity Opioid dependence (HCC) 01/15/2020 In 180 as of 01/2020 per ER report from [facility]. Palpitation Primary cardiomyopathy (HCC) Pulmonary emphysema (HCC) SVT (supraventricular tachycardia) (HCC) Tremor Current Outpatient Medications Medication Sig omeprazole (PRILOSEC) 40 mg capsule Take 1 capsule by mouth once daily. Diaper,Brief, Adult,Disposable (DEPEND EASY FIT UNDERGARMENTS) Size Large pull up. Change depends once every 1-2 hrs. 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 senna-docusate (SENNA PLUS) 8.6-50 mg per tablet Take 1 tablet by mouth every morning AND 1 tablet daily at bedtime. tiotropium bromide (SPIRIVA RESPIMAT) 2.5 mcg/actuation inhaler Inhale 2 Puffs as instructed once daily. Inhale two puffs once daily. sucralfate (CARAFATE) 1 gram tablet Take 1 tablet by mouth before meals and at bedtime. potassium chloride ER (KLOR-CON) 20 mEq tablet Take 1 tablet by mouth once daily. ondansetron (ZOFRAN) 4 mg tablet Take 1 tablet by mouth every 8 hours as needed for nausea/vomiting. lisinopril (ZESTRIL) 5 mg tablet Take 1 tablet by mouth once daily. gabapentin (NEURONTIN) 400 mg capsule Take 1 capsule (more content not included)... Normal [facility] Comprehensive metabolic 2000 panelon 09-14-2024 Albumin [Mass/Vol] 4.2 g/dL Normal 3.9-4.[address] [facility] Comment on above: Order Comment: Speci men Type: BLOOD SPECIMENOrdering Facility: [facility] Address: [address] [place] [address] Performed By: #### 2 4323-8, GORDO, 13987-3 ####[facility] LABCLIA [id number] [place] [address] [place] ALP [Catalytic activity/Vol] 128 U/L High 34-123 [facility] Comment on above: Order Comment: Speci men Type: BLOOD SPECIMENOrdering Facility: [facility] Address: [address] [place] [address] Performed By: #### 2 4323-8, LIPNF, 76531-5 ####[facility] LABCLIA [id number] [place] [address] [place] ALT [Catalytic activity/Vol] 10 U/L Normal 7-38 [facility] Comment on above: Order Comment: Speci men Type: BLOOD SPECIMENOrdering Facility: [facility] Address: [address] [place] [address] Performed By: #### 2 4323-8, LIPNF, ####[facility] LABCLIA [id number] [place] [address] [place] Anion gap [Moles/Vol] 9 mmol/L Normal 8-15 [facility] Comment on above: Order Comment: Speci men Type: BLOOD SPECIMENOrdering Facility: [facility] Address: [address] [place] [address] Performed By: #### 2 4323-8, LIPNF, 53108-8 ####[facility] LABCLIA [id number] [place] [address] [place] AST [Catalytic activity/Vol] 15 U/L Normal 13-35 [facility] Comment on above: Order Comment: Speci men Type: BLOOD SPECIMENOrdering Facility: [facility] Address: [address] [place] [address] Performed By: #### 2 4323-8, LIPNF, 04109-1 ####[facility] LABCLIA [id number] [place] [address] [place] Bilirubin [Mass/Vol] 0.4 mg/dL Normal 0.2-1.3 [facility] Comment on above: Order Comment: Speci men Type: BLOOD SPECIMENOrdering Facility: [facility] Address: [address] [place] [address] Performed By: #### 2 4323-8, LIPNF, ####[facility] LABCLIA [id number] [place] [address] [place] Calcium [Mass/Vol] 9.8 mg/dL Normal 8.5-10.[address] [facility] Comment on above: Order Comment: Speci men Type: BLOOD SPECIMENOrdering Facility: [facility] Address: [address] [place] [address] Performed By: #### 2 4323-8, LIPNF, ####[facility] LABCLIA [id number] [place] [address] [place] Chloride [Moles/Vol] 104 mmol/L Normal 98-107 [facility] Comment on above: Order Comment: Speci men Type: BLOOD SPECIMENOrdering Facility: [facility] Address: [address] [place] [address] Performed By: #### 2 4323-8, LIPNF, ####[facility] LABCLIA [id number] [place] [address] [place] CO2 [Moles/Vol] 27 mmol/L Normal 22-30 [facility] Comment on above: Order Comment: Speci men Type: BLOOD SPECIMENOrdering Facility: [facility] Address: [address] [place] [address] Performed By: #### 2 4323-8, LIPNF, ####[facility] LABCLIA [id number] [place] [id number] [place] Creatinine [Mass/Vol] 0.91 mg/dL Normal 0.58-0.96 [facility] Comment on above: Order Comment: Speci men Type: BLOOD SPECIMENOrdering Facility: [facility] Address: [address] [place] [address] Performed By: #### 2 4323-8, LIPMILLICENT, 25480-3 ####[facility] LABIA [id number] [place] [address] [place] Creatinine and Glomerular filtration rate.predicted panel (S/P/Bld) 69 mL/min/1.73m??? Normal >=60 [facility] Comment on above: Order Comment: Cesar piper Type: BLOOD SPECIMENOrdering Facility: [facility] Address: [address] [place] [address] Result Comment: Sweta mated Glomerular Filtration Rate (eGFR) is calculated using the 2020 CKD-EPI creatinine equation. This equation utilizes serum creatinine, sex, and age as parameters. The creatinine assay has traceable calibration to isotope dilution-mass spectrometry. Refer to KDIGO guidelines for clinical interpretation. In patients with unstable renal function, e.g. those with acute kidney injury, the eGFR may not accurately reflect actual GFR. Performed By: #### 2 4323-8, LIPMILLICENT, 66336-0 ####[facility] LABCLIA [id number] [place] [id number] [place] Glucose [Mass/Vol] 94 mg/dL Normal 74-[address] [facility] Comment on above: Order Comment: Cesar piper Type: BLOOD SPECIMENOrdering Facility: [facility] Address: [address] [place] [address] Result Comment: The [place] Diabetes Association (ADA) provides guidance for cutoff values for fasting glucose and random glucose. The ADA defines fasting as no caloric intake for at least 8 hours. Fasting plasma glucose results between 100 to 125 mg/dL indicate increased risk for diabetes (prediabetes). Fasting plasma glucose results greater than or equal to 126 mg/dL meet the criteria for diagnosis of diabetes. In the absence of unequivocal hyperglycemia, results should be confirmed by repeat testing. In a patient with classic symptoms of hyperglycemia or hyperglycemic crisis, random plasma glucose results greater than or equal to 200 mg/dL meet the criteria for diagnosis of diabetes. Reference: Standards of Medical Care in Diabetes 2016, [place] Diabetes Association. Diabetes Care. 2016.39(Suppl 1). Performed By: #### 2 4323-8, LIPNF, 26226-3 ####[facility] LABCLIA [id number] [place] [address] [place] Potassium [Moles/Vol] 4.1 mmol/L Normal 3.7-5.1 [facility] Comment on above: Order Comment: Speci men Type: BLOOD SPECIMENOrdering Facility: [facility] Address: [address] [place] [address] Performed By: #### 2 4323-8, LIPNF, ####[facility] LABIA [id number] [place] [address] [place] Protein [Mass/Vol] 7.3 g/dL Normal 6.3-8.[address] [facility] Comment on above: Order Comment: Speci men Type: BLOOD SPECIMENOrdering Facility: [facility] Address: [address] [place] [address] Performed By: #### 2 4323-8, LIPNF, 77078-5 ####[facility] LABIA [id number] [place] [address] [place] Sodium [Moles/Vol] 140 mmol/L Normal 136-[address] [facility] Comment on above: Order Comment: Speci men Type: BLOOD SPECIMENOrdering Facility: [facility] Address: [address] [place] [address] Performed By: #### 2 4323-8, LIPNF, 53868-4 ####[facility] LABIA [id number] [place] [id number] [place] Urea nitrogen [Mass/Vol] 13 mg/dL Normal 7-21 [facility] Comment on above: Order Comment: Speci men Type: BLOOD SPECIMENOrdering Facility: [facility] Address: [address] [place] [address] Performed By: #### 2 4323-8, LIPNF, ####[facility] LABCLIA [id number] [address] OF [facility] HbA1c (Bld)on 09-14-2024 Average glucose Estimated from glycated hemoglobin (Bld) [Mass/Vol] 108 mg/dL Normal [facility] Comment on above: Order Comment: Cesar piper Type: BLOOD SPECIMENOrdering Facility: [facility] Address: [address] [place] [address] Result Comment: eAG: (Estimated average glucose) is a calculated value from HgbA1c and is senior outside sales representative of the average blood glucose level in the last 2-3 month period. Performed By: #### 5 5454-3 ####[facility] LABIA [id number] [address] HbA1c (Bld) [Mass fraction] 5.4 % Normal 4.3-5.6 [facility] Comment on above: Order Comment: Cesar piper Type: BLOOD SPECIMENOrdering Facility: [facility] Address: [address] [place] [address] Result Comment: [place] Diabetes Association guidelines indicate that patients with HgbA1c in the range 5.7-6.4% are at increased risk for development of diabetes, and intervention by lifestyle modification may be beneficial. HgbA1c greater or equal to 6.5% is considered diagnostic of diabetes. Performed By: #### 5 5454-3 ####[facility] LABIA [id number] [address] OF [facility] LIPID PANEL, NONFASTINGon Cholesterol [Mass/Vol] 219 mg/dL High <200 [facility] Comment on above: Order Comment: Cesar piper Type: BLOOD SPECIMENOrdering Facility: [facility] Address: [address] [place] [address] Result Comment: <200 mg/dL, Desirable 200-239 mg/dL, Borderline high >239 mg/dL, High Performed By: #### 2 4323-8, GORDO ####[facility] LABCLIA [id number] [address] OF [place] HDL CHOLESTEROL, NF 45 mg/dL Normal >39 [facility] Comment on above: Order Comment: Cesar piper Type: BLOOD SPECIMENOrdering Facility: [facility] Address: [address] [place] [address] Result Comment: 40-5 9 mg/dL, Acceptable >59 mg/dL, High: Negative risk factor for coronary heart disease <40 mg/dL, Low: Positive risk factor for coronary heart disease Performed By: #### 2 4323-8, LIPNF, ####[facility] LABCLIA [id number] [address] [place] LDL CHOLESTEROL, NF 141 mg/dL High <100 [facility] Comment on above: Order Comment: Cesar piper Type: BLOOD SPECIMENOrdering Facility: [facility] Address: [address] [place] [address] Result Comment: <100 mg/dL, Optimal 100-129 mg/dL, Near optimal/above optimal 130-159 mg/dL, Borderline high 160-189 mg/dL, High >189 mg/dL, Very high Secondary prevention optimal LDL Cholesterol levels are recommended to be < 70 mg/dL Performed By: #### 2 4323-8, LIPNF, ####[facility] LABCLIA [id number] [address] OF [place] LDL/HDL RATIO, NF 3.13 mg/dL High <2.54 [facility] Comment on above: Order Comment: Cesar feliz Type: BLOOD SPECIMENOrdering Facility: [facility] Address: [address] [place] [address] Result Comment: Kimberly chang: 1. National Cholesterol Education Program ATP III Guideline At-A-Glance Quick Desk Reference: National Heart, Lung, and Blood [place]. National Institutes of Health. 2001: NIH Publication No. 01-3305. 2. An International Atherosclerosis Society position paper: global recommendations for the management of dyslipidemia: executive summary, Atherosclerosis. 2014: 232(2):410-413. Performed By: #### 2 4323-8, LIPNF, ####[facility] LABCLIA [id number] [place] [address] [place] NON HDL CHOL, NF 174 mg/dL High <130 [facility] Comment on above: Order Comment: Speci men Type: BLOOD SPECIMENOrdering Facility: [facility] Address: [address] [place] [address] Result Comment: <130 mg/dL, Optimal 130-159 mg/dL, Near optimal/above optimal 160-189 mg/dL, Borderline high 190-219 mg/dL, High >219 mg/dL, Very high Secondary prevention optimal non HDL Cholesterol levels are recommended to be <100 mg/dL Performed By: #### 2 4323-8, LIPNF, ####[facility] LABCLIA [id number] [address] [place] T CHOL/HDL RATIO NF 4.87 mg/dL Normal <5.10 [facility] Comment on above: Order Comment: Speci men Type: BLOOD SPECIMENOrdering Facility: [facility] Address: [address] [place] [address] Performed By: #### 2 4323-8, LIPNF, ####[facility] LABCLIA [id number] [place] [address] [place] TRIGLYCERIDES, NF 165 mg/dL High <150 [facility] Comment on above: Order Comment: Speci men Type: BLOOD SPECIMENOrdering Facility: [facility] Address: [address] [place] [address] Result Comment: <150 mg/dL, Normal 150-199 mg/dL, Borderline high 200-499 mg/dL, High >499 mg/dL, Very high Performed By: #### 2 4323-8, LIPNF, ####[facility] LABCLIA [id number] [place] [address] [place] VLDL CHOLESTEROL, NF 33 mg/dL High <30 [facility] Comment on above: Order Comment: Speci feliz Type: BLOOD SPECIMENOrdering Facility: [facility] Address: [address] [place] [address] Performed By: #### 2 4323-8, LIPNF, 06984-8 ####[facility] LABCLIA [id number] [address] OF [place] Magnesium SerPl-mCncon 09-14 Magnesium [Mass/Vol] 2.0 mg/dL Normal 1.7-2.3 [facility] Comment on above: Order Comment: Cesar piper Type: BLOOD SPECIMENOrdering Facility: [facility] Address: [address] [place] [address] Performed By: #### 2 4323-8, LIPNF, 66386-1 ####[facility] LABCLIA [id number] [address] CNOVon 08-26-2024 CNOV Office Visit (UCTR ) ----- MARCIA MASCORRO ([id number]) 1955 [facility] Date Time Provider Department 08/26/24 5:15 PM RYANNE NEGRO [facility] During your visit today, we recorded the following information about you: Temperature Pulse Respiration Blood pressure 99.6 degrees 87/minute 24/minute 136/85 Weight 87.5 kg Ryanne Negro APRN.[employer] 08/26/2024 5:56 PM Signed CC: Patient presents with: Barky Cough: With wheeze, SOB AND sore throat x 2-3 days HPI: Marcia Mascorro is a 68 year old female who presents to the office with complaint of chest congestion, head congestion, cough, productive, and wheezing for a few days. Symptoms are worsening Associated symptoms includes wheezing. Denies fever, nausea, vomiting , and diarrhea. Treatments tried include nothing so far. with no relief of symptoms. Sick contacts: unknown. History of asthma, frequent episodes of bronchitis, chronic bronchitis, bronchiectasis or COPD: No Smoker: No Seasonal/environmental allergies: No The ROS is otherwise negative. The patient's pmh, medications, allergies, and past visits are reviewed. PHYSICAL EXAM: BP 136/85 Pulse 87 Temp 37.6 ?C (99.6 ?F) (Right Tympanic) Resp 24 Wt 87.5 kg (192 lb 14.4 oz) SpO2 94% BMI 32.10 kg/m? General appearance: alert, cooperative, pleasant, in no acute distress Head: Normocephalic Eyes: EOM's intact, conjunctiva pink and moist, no icterus, sclera white, non-injected Ears: Right ear: External ear/canal- Normal, TM - clear with good landmarks. Left ear: External ear/canal- Normal, TM - clear with good landmarks Oropharynx:moist without lesions, mild erythema, exudates or tonsillar hypertrophy. Heart: Negative. RRR without obvious murmur, gallop, or rubs. No ectopy. Lungs: wheezing diffusely PAST MEDICAL HISTORY Diagnosis Date Abdominal aortic aneurysm (HCC) JOVANY (acute kidney injury) ([facility]) Anaphylactic reaction due to contrast Anxiety Retana's esophagus Bile leak, postoperative CAD (coronary artery disease) CHF (congestive heart failure) (HCC) Chronic back pain Chronic pain low back, sees pain MGT: Dr. Nayak Compression fracture of thoracic vertebra (HCC) COPD (chronic obstructive pulmonary disease) (HCC) Depression Diabetes mellitus (HCC) Diverticulosis Essential hypertension, benign Sees Dr. Best GERD (gastroesophageal reflux disease) Hyperthyroidism Incontinence 07/07/2014 LV (left ventricular) mural thrombus 12/01/2023 Mixed hyperlipidemia Obesity Opioid dependence (HCC) 01/15/2020 In 180 as of 01/2020 per ER report from [facility]. Palpitation Primary cardiomyopathy (HCC) Pulmonary emphysema (HCC) SVT (supraventricular tachycardia) (HCC) Tremor PAST SURGICAL HISTORY Procedure Laterality Date 2D ECHO (EXEP) 01/19/2017 EF=55%, mild LVH, LA enlargement, TX and TI, Diastolic dysfunction. 2D ECHO (EXEP) 12/18/2017 EF=55%, mild LVH, mild diastolic dysfunct, COLONOSCOPY FLX DX W/COLLJ SPEC WHEN PFRMD 04/16/2016 Colonoscopy mac. repeat 10 yrs ESOPHAGOGASTRODUODENOSCOP Y TRANSORAL DIAGNOSTIC 04/16/2016 EGD mac LAPAROSCOPIC CHOLECYSTECTOMY 12/09/2023 Dr. Tejada TOTAL ABDOMINAL HYSTERECT W/WO RMVL TUBE OVARY Hysterectomy, YANICK ALLERGIES Contrast Dye [Iodine] MEDICATIONS omeprazole (PRILOSEC) 40 mg capsule Take 1 capsule by mouth once daily. Nutritional Supplements (OPTIMENTAL) liqd Take 237 mL by mouth once daily. Okay with what insurance covers Diaper,Brief, Adult,Disposable (DEPEND EASY FIT UNDERGARMENTS) Size Large pull up. Change depends once every 1-2 hrs. 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 senna-docusate (SENNA PLUS) 8.6-50 mg per tablet Take 1 tablet by mouth every morning AND 1 tablet daily at bedtime. sucralfate (CARAFATE) 1 gram tablet Take 1 tablet by mouth before meals and at bedtime. sodium phosphate-sodium bisphosphate (FLEET) enema 133 mL by RECTAL route as needed for constipation. potassium chloride ER (KLOR-CON) 20 mEq tablet Take 1 tablet by mouth once daily. ondansetron (ZOFRAN) 4 mg tablet Take 1 tablet by mouth every 8 hours as needed for nausea/vomiting. magnesium hydroxide (MILK OF MAGNESIA) 400 mg/5 mL suspension Take 30 mL by mouth once daily as needed for constipation. lisinopril (ZESTRIL) 5 mg tablet Take 1 tablet by mouth once daily. gabapentin (NEURONTIN) 400 mg capsule Take 1 capsule by mouth three times a day for 180 days. furosemide (LASIX) 20 mg tablet Take 1 tablet by mouth two times a day. DULoxetine (CYMBALTA) 30 mg capsule Take 1 capsule by mouth once daily. docusate sodium (COLACE) 100 mg capsule Take 1 capsule by mouth two times a day as needed for constipation. dicyclomine (BENTYL) 10 mg capsule Take 2 capsules by mouth two times a day. clopidogrel (PLAVIX) 75 mg tab (more content not included)... Normal [facility] A MOLECULAR (POC)on Procedural Control Valid [facility] Strep A (POCT) Negative Negative [facility] 12 Lead EKGon 08-21-2024 12 Lead EKG [facility] Cardiovascular Services [address] [place] [address] 12 Lead EKG 08/21/242125 MR#: [id number] Acct: [id number] Name: MARCIA MASCORRO Rep #: [id number] : 1955 68 From: Rey Curtis MD Attending Dr: Status: DEP ER Ordering Dr: Linus Byers MD Date: 08/21/24 Location: ED Sex: F C Admitted: Test Reason : DYSRHYTHMIA Blood Pressure : */* mmHG Vent. Rate : 82 BPM Atrial Rate : 82 BPM P-R Int : 132 ms QRS Dur : 98 ms QT Int : 358 ms P-R-T Axes : 52 0 78 degrees QTcB Int : 418 ms Sinus rhythm with Premature atrial complexes Possible Inferior infarct , age undetermined Cannot rule out Anteroseptal infarct , age undetermined Abnormal ECG Confirmed by REY CURTIS MD ([id number]), web content editor MICAH SALMERON ([id number]) on 08/24/2024 6:28:39 AM Referred By: Confirmed By: REY CURTIS MD 08/24/24 0628 Date Rey Curtis MD CC: Dr. Linus Byers MD; Dr. Gabriel Galvan MD Signed Normal [facility] CBC W/Diff, Automatedon 08-07 Absolute Lymph 1.66 X10 3/uL Normal 0.83-4.51 [facility] Comment on above: Performed By: #### L 500.2500, L501.5487, L100.0100 #### [facility] [address] [place], [address] Absolute Neut 4.0 X10 3/uL Normal 2.0-7.7 [facility] Comment on above: Performed By: #### L 500.2500, L501.5425, L100.0100 #### [facility] [address] [place], [address] Basophils/100 WBC (Bld) 0.6 % Normal 0-1 [facility] Comment on above: Performed By: #### L 500.2500, L501.5425, L100.0100 #### [facility] [address] [place], [address] Eosinophils/100 WBC (Bld) 3.3 % Normal 0-5 [facility] Comment on above: Performed By: #### L 500.2500, L501.5425, L100.0100 #### [facility] [address] [place], [address] Erythrocyte distribution width (RBC) [Ratio] 13.2 % Normal 11.6-14.6 [facility] Comment on above: Performed By: #### L 500.2500, L501.5425, L100.0100 #### [facility] [address] [place], [address] Hematocrit (Bld) [Volume fraction] 40.4 % Normal 37-47 [facility] Comment on above: Performed By: #### L 500.2500, L501.5425, L100.0100 #### [facility] [address] [place], [address] Hemoglobin (Bld) [Mass/Vol] 12.8 g/dL Normal 12.0-15.0 [facility] Comment on above: Performed By: #### L 500.2500, L501.5425, L100.0100 #### [facility] [address] [place], [address] IG% 0.300 Normal 0.0-0.9 [facility] Comment on above: Result Comment: IG% - Immature Granulocytes (promyelocytes, myelocytes and metamyelocytes) > 1% indicates that a LEFT SHIFT is Present. Performed By: #### L 500.2500, L501.5425, L100.0100 #### [facility] [address] [place], [address] Lymphocytes/100 WBC (Bld) 26.1 % Normal 19-41 [facility] Comment on above: Performed By: #### L 500.2500, L501.5425, L100.0100 #### [facility] [address] [place], [address] MCH (RBC) [Entitic mass] 30.5 pg Normal 27.0-32.0 [facility] Comment on above: Performed By: #### L 500.2500, L501.5425, L100.0100 #### [facility] [address] [place], [address] MCHC (RBC) [Mass/Vol] 31.7 g/dL Low 32-36 [facility] Comment on above: Performed By: #### L 500.2500, L501.5425, L100.0100 #### [facility] [address] [place], [address] MCV (RBC) [Entitic vol] 96.2 fL Normal 81-99 [facility] Comment on above: Performed By: #### L 500.2500, L501.5425, L100.0100 #### [facility] [address] [place], [address] Monocytes/100 WBC (Bld) 6.3 % Normal 0-10 [facility] Comment on above: Performed By: #### L 500.2500, L501.5425, L100.0100 #### [facility] [address] [place], [address] Neutrophils/100 WBC (Bld) 63.4 % Normal 47-70 [facility] Comment on above: Performed By: #### L 500.2500, L501.5425, L100.0100 #### [facility] [address] [place], [address] Nucleated RBC (Bld) [#/Vol] 0 10*3/uL Normal 0-5 [facility] Comment on above: Performed By: #### L 500.2500, L501.5425, L100.0100 #### [facility] [address] [place], [address] Platelet mean volume (Bld) [Entitic vol] 9.1 fL Normal 6.2-12.0 [facility] Comment on above: Performed By: #### L 500.2500, L501.5425, L100.0100 #### [facility] [address] [place], [address] Platelets (Bld) [#/Vol] 191 10*3/uL Normal 150-450 [facility] Comment on above: Performed By: #### L 500.2500, L501.5425, L100.0100 #### [facility] [address] [place], [address] RBC (Bld) [#/Vol] 4.20 10*6/uL Normal 4.2-5.4 [facility] Comment on above: Performed By: #### L 500.2500, L501.5425, L100.0100 #### [facility] [address] [place], [address] RDW SD 46.5 fl High 35.1-43.9 [facility] Comment on above: Performed By: #### L 500.2500, L501.5425, L100.0100 #### [facility] [address] [place], [address] WBC (Bld) [#/Vol] 6.4 10*3/uL Normal 4.4-11.0 [facility] Comment on above: Performed By: #### L 500.2500, L501.5425, L100.0100 #### [facility] [address] [place], [place], [address] Chest PA and Lateralon 08-21 Chest PA and Lateral [facility] Imaging Services [address] [place] [address] Chest PA and Lateral MR#: [id number] Acct: [id number] Name: MARCIA MASCORRO Rep #: [id number] : 1955 F 68 From: Chucky Sampson MD PCP: Dr. Gabriel Galvan MD Status: REG ER Study: Chest PA and Lateral Date of Exam: 08/21/24 Exam# [id number] Ordering Dr: Linus Byers MD [id number] STUDY: X-RAY CHEST REASON FOR EXAM: Female, 68 years old. cough TECHNIQUE: PA and lateral COMPARISON: None. FINDINGS: There is mild left basilar atelectasis in association with moderate-sized intrathoracic hernia with air-fluid level. There is no demonstrated pleural abnormality. Normal size heart. Normal mediastinum and dru. Normal visualized pulmonary arteries. Mildly calcified aortic arch and descending thoracic aorta. Dorsal spine demonstrates degenerative changes and mild multilevel compression deformities. Normal visualized ribs, clavicles, and shoulders. There is no demonstrated abnormality of the visualized soft tissue structures of the upper abdomen. No significant change since prior exam RAD/Chest PA and Lateral IMPRESSION: Moderate size hiatal hernia with associated mild left basilar atelectasis Electronically Signed: Chucky Sampson MD at 22:24 EST , CC: Dr. Linus Byers MD; Dr. Gabriel Galvan MD Service Consultant: Signed Normal [facility] Comprehensive Metabolic Prof ilon 08-21-2024 Albumin [Mass/Vol] 3.1 g/dL Low 3.2-5.0 [facility] Comment on above: Order Comment: 1 Y Performed By: #### L 500.2500, L501.5425, L100.0100 #### [facility] [address] [place], [address] Albumin/Globulin [Mass ratio] 0.9 {ratio} Normal 0.9-2.4 [facility] Comment on above: Order Comment: 1 Y Performed By: #### L 500.2500, L501.5425, L100.0100 #### [facility] [address] [place], [address] ALK P 128 U/L High 45-117 [facility] Comment on above: Order Comment: 1 Y Performed By: #### L 500.2500, L501.5425, L100.0100 #### [facility] [address] [place], [address] ALT [Catalytic activity/Vol] 11 U/L Low 13-56 [facility] Comment on above: Order Comment: 1 Y Performed By: #### L 500.2500, L501.5425, L100.0100 #### [facility] [address] [place], [address] AST [Catalytic activity/Vol] 14 U/L Low 15-37 [facility] Comment on above: Order Comment: 1 Y Performed By: #### L 500.2500, L501.5425, L100.0100 #### [facility] [address] [place], [address] Bilirubin [Mass/Vol] 0.50 mg/dL Normal 0.20-1.00 [facility] Comment on above: Order Comment: 1 Y Result Comment: For patients on eltrombopag therapy, use of Dimension [place] TBIL is not recommended. Performed By: #### L 500.2500, L501.5425, L100.0100 #### [facility] [address] [place], [address] BUN/CRE 20.5 RATIO High 10-20 [facility] Comment on above: Order Comment: 1 Y Performed By: #### L 500.2500, L501.5425, L100.0100 #### [facility] [address] [place], [address] CA,Total 8.6 mg/dL Normal 8.5-10.1 [facility] Comment on above: Order Comment: 1 Y Performed By: #### L 500.2500, L501.5425, L100.0100 #### [facility] [address] [place], [address] Chloride [Moles/Vol] 108 mmol/L High 98-107 [facility] Comment on above: Order Comment: 1 Y Performed By: #### L 500.2500, L501.5425, L100.0100 #### [facility] [address] [place], [address] CO2 [Moles/Vol] 29.0 mmol/L Normal 21.0-32.0 [facility] Comment on above: Order Comment: 1 Y Performed By: #### L 500.2500, L501.5425, L100.0100 #### [facility] [address] [place], [address] Creatinine [Mass/Vol] 0.83 mg/dL Normal 0.55-1.02 [facility] Comment on above: Order Comment: 1 Y Result Comment: The validity of the calculated GFR GFRAA in patients over 70 years has not been determined. Clinical correlation is essential. Performed By: #### L 500.2500, L501.5425, L100.0100 #### [facility] [address] [place], [address] ECRCL 71.52 ml/min Normal [facility] Comment on above: Order Comment: 1 Y Performed By: #### L 500.2500, L501.5425, L100.0100 #### [facility] [address] [place], [address] EST GFR - AA 88 mL/min Normal >60 [facility] Comment on above: Order Comment: 1 Y Result Comment: Afri can [place] GFR Calc Performed By: #### L 500.2500, L501.5425, L100.0100 #### [facility] [address] [place], [address] GAP 5 Normal 5-15 [facility] Comment on above: Order Comment: 1 Y Performed By: #### L 500.2500, L501.5425, L100.0100 #### [facility] [address] [place], [address] GFR/1.73 sq M.predicted among non-blacks MDRD (S/P/Bld) [Vol rate/Area] 73 mL/min/{1.73_m2} Normal >60 [facility] Comment on above: Order Comment: 1 Y Result Comment: Non- GFR Calc Performed By: #### L 500.2500, L501.5425, L100.0100 #### [facility] [address] [place], [address] Globulin (S) [Mass/Vol] 3.5 g/dL Normal 2.2-4.2 [facility] Comment on above: Order Comment: 1 Y Performed By: #### L 500.2500, L501.5425, L100.0100 #### [facility] [address] [place], [address] Glucose [Mass/Vol] 139 mg/dL High 74-106 [facility] Comment on above: Order Comment: 1 Y Result Comment: Fast ing Glucose result greater than or equal to 126 mg/dL suggests DIABETES MELLITUS per A.D.A. criteria. Performed By: #### L 500.2500, L501.5425, L100.0100 #### [facility] [address] [place], [address] Potassium [Moles/Vol] 3.6 mmol/L Normal 3.5-5.1 [facility] Comment on above: Order Comment: 1 Y Performed By: #### L 500.2500, L501.5425, L100.0100 #### [facility] [address] [place], [address] Sodium [Moles/Vol] 142 mmol/L Normal 136-145 [facility] Comment on above: Order Comment: 1 Y Performed By: #### L 500.2500, L501.5425, L100.0100 #### [facility] [address] [place], [address] T PROT 6.6 g/dL Normal 6.4-8.2 [facility] Comment on above: Order Comment: 1 Y Performed By: #### L 500.2500, L501.5425, L100.0100 #### [facility] [address] [place], [address] Urea nitrogen [Mass/Vol] 17 mg/dL Normal 7-18 [facility] Comment on above: Order Comment: 1 Y Performed By: #### L 500.2500, L501.5425, L100.0100 #### [facility] [address] [place], [address] Emergency Department Summary on 08-21-2024 [address] [facility] Medical Records Department [address] [place] [address] Emergency Department Summary 08/21/24 MR#: [id number] Acct: [id number] Name: MARCIA MASCORRO Rep #: [id number] : 1955 68 From: Linus Byers MD PCP: Dr. Gabriel Galvan MD Status:REG ER Location: ED HPI History of Present Illness Chief Complaint: Upper Extremity Injury Informant: patient Narrative Narrative: 68-year-old female with a lot of chronic symptoms states yesterday while she was standing, not exerting herself, she started having pain in her right shoulder and at 1 point it shot some pain into her right jaw. That is no longer there but the pain in her shoulder has not gone away. She states it feels like there is something in there that is wrong, pointing to her right shoulder. She denies any chest discomfort with this. She has chronic abdominal pain, that is no different. She has a cough. No fevers or chills. She has chronic dyspnea that is no necessarily different. She denies injuring her shoulder doing any heavy lifting or anything recently that could explain this. [facility] Medical History Wears glasses Post-menopausal Arthritis History of renal disease High cholesterol DVT (deep venous thrombosis) Easy bruising Excessive bleeding Back pain Injury of back History of ulceration Difficulty chewing Gastric reflux Shortness of breath on exertion Hoarseness Chronic cough Leg cramps History of pain when walking History of edema History of echocardiogram History of stress test Cardiology follow-up encounter History of CHF (congestive heart failure) History of irregular heartbeat Chest pain Bullous emphysema COPD with asthma Esophagitis, unspecified without bleeding Unspecified combined 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 Other chronic pain Elevated troponin Sustained SVT Depression Osteoporosis Kidney stones Smoker Myocardial infarct History of non-ST elevation myocardial infarction (NSTEMI) (09/01/21) Essential hypertension Old anterior wall myocardial infarction Ischemic cardiomyopathy Opiate dependence Anxiety and depression TIA (transient ischemic attack) Obesity (BMI 30.0-34.9) EVELYN (obstructive sleep apnea) Personal history of transient ischemic attack (TIA), and cerebral infarction without residual deficits COPD (chronic obstructive pulmonary disease) Calculus of left kidney GERD (gastroesophageal reflux disease) Hyperlipidemia Atherosclerotic heart disease of [place] coronary artery without angina pectoris Tobacco abuse Home Medications ???Medication ???Instructions ???Recorded ???Last Taken ???Type clopidogrel 75 mg tablet (Plavix) 75 mg PO DAILY 30 days #30 tabs 01/04/23 09/25/23 Rx lisinopril 2.5 mg tablet 2.5 mg PO DAILY 30 days #30 tabs 01/04/23 06/24/23 Rx ondansetron 4 mg disintegrating 4 mg PO Q8H PRN PRN Nausea #12 tabs 01/13/23 Unknown Rx tablet albuterol sulfate 90 mcg/actuation 2 puff inhalation Q6H PRN 02/17/23 Unknown Rx aerosol inhaler shortness of breath or wheezing #8.5 grams budesonide-formoterol HFA 160 1 puff inhalation BID #10.2 grams 02/17/23 Unknown Rx mcg-4.5 mcg/actuation aerosol inhaler (Symbicort) inhalational spacing device #1 ea 02/17/23 Unknown Rx (Aerochamber MV spacer) tiotropium bromide 2.5 2 puff inhalation DAILY #4 grams 02/17/23 Unknown Rx mcg/actuation mist for inhalation (Spiriva Respimat) pantoprazole 40 mg tablet,delayed 40 mg PO Q12H #60 tabs 06/24/23 09/28/23 Rx release lorazepam 1 mg tablet (Ativan) 1 mg PO BID PRN anxiety 07/16/23 09/28/23 History amiodarone 200 mg tablet 200 mg PO DAILY 07/22/23 Unknown History carvedilol 6.25 mg tablet 6.25 mg PO Q12H 07/29/23 09/28/23 History furosemide 20 mg tablet 20 mg PO Q12H 07/29/23 Unknown History gabapentin 400 mg capsule 400 mg PO Q8H 07/29/23 09/28/23 History nitroglycerin 0.4 mg sublingual 0.4 mg buccal Q5M PRN chest pain 07/29/23 Unknown History tablet oxycodone myristate 9 mg capsule 13.5 mg PO Q12H 07/29/23 Unknown History sprinkle extended release 12 hr(DON'T CRUSH) (Xtampza ER) sucralfate 1 gram tablet 1 g PO Q8H 07/29/23 Unknown History albuterol sulfate 2.5 mg/3 mL 2.5 mg continuous nebulization Q6H 09/05/23 Unknown History (0.083 %) solution for nebulization PRN shortness of breath or wheezing melatonin 3 mg capsule 3 mg PO QHS 09/05/23 Unknown History cyclobenzaprine 5 mg tablet 5 mg PO TID PRN muscle spasm #15 11/30/23 Unknown Rx tabs carvedilol 12.5 mg tablet (Coreg) 12.5 mg PO BID #60 tabs 07/07/24 Unknown Rx prednisone 20 mg tablet 40 mg (2 x 20 mg) PO DAILY 5 days 08/21/24 Unknown Rx #10 tabs Allergy/AdvReac Type Severity Reaction Status Date / Time No Know (more content not included)... Normal [facility] L501.4020on 08-21-2024 TROPONIN-I HS 20 pg/mL Normal 3.0-54.0 [facility] Comment on above: Order Comment: 1 Y Result Comment: Kelvin duque Note: New Test Units and Gender Specific Reference Ranges. For more information see Policy Stat Procedure Onaway High Sensitivity Troponin (TNIH) and attachments. Performed By: #### L 500.2500, L501.5425, L100.0100 #### [facility] [address] [place], [address] Shoulder min 2 Viewson 08-21 Shoulder min 2 Views [facility] Imaging Services [address] [place] [address] Shoulder min 2 Views MR#: [id number] Acct: [id number] Name: MARCIA MASCORRO Rep #: [id number] : 1955 F 68 From: Chucky Sampson MD PCP: Dr. Gabriel Galvan MD Status: REG ER Study: Shoulder min 2 Views Date of Exam: 08/21/24 Exam# [id number] Ordering Dr: Linus Byers MD [id number] STUDY: X-RAY - RIGHT SHOULDER REASON FOR EXAM: Female, 68 years old. pain TECHNIQUE: 4 view(s) of the shoulder. COMPARISON: None. FINDINGS: Mildly narrowed glenohumeral articulation. Normal acromioclavicular joint. Normal acromion. Normal humeral head and visualized proximal humerus. The soft tissue structures are unremarkable. Normal visualized pulmonary apex. RAD/Shoulder min 2 Views IMPRESSION: Mild degenerative change. No acute fracture or dislocation Electronically Signed: Chucky Sampson MD at 22:25 EST Reading Location ID and State: [facility] / [place] Tel , Service support , CC: Dr. Linus Byers MD; Dr. Gabriel Galvan MD Service Consultant: Signed Normal [facility] 12 Lead EKGon 07-07-2024 12 Lead EKG [facility] Cardiovascular Services [address] [place] [address] 12 Lead EKG 07/07/24 1802 MR#: [id number] Acct: [id number] Name: MARCIA MASCORRO Rep #: [id number] : 1955 68 From: Rey Curtis MD Attending Dr: Status: DEP ER Ordering Dr: Gonsalo Melendez DO Date: 07/07/24 Location: ED Sex: F C Admitted: Test Reason : CP REPEAT Blood Pressure : */* mmHG Vent. Rate : 66 BPM Atrial Rate : 68 BPM P-R Int : 136 ms QRS Dur : 96 ms QT Int : 392 ms P-R-T Axes : 57 13 61 degrees QTcB Int : 410 ms Sinus rhythm with marked sinus arrhythmia Cannot rule out Inferior infarct , age undetermined Cannot rule out Anteroseptal infarct , age undetermined Abnormal ECG Confirmed by REY CURTIS MD ([id number]), web content editor MICAH SALMERON ([id number]) on 07/08/2024 8:22:37 AM Referred By: JOLENE Confirmed By: REY CURTIS MD 07/08/24 0822 Date Rey Curtis MD CC: Dr. Gabriel Galvan MD; Dr. Gonsalo Melendez DO Signed Normal [facility] 12 Lead EKG [facility] [address] [place] [address] 12 Lead EKG 07/07/24 1534 MR#: [id number] Acct: [id number] Name: MARCIA MASCORRO Rep #: [id number] : 1955 68 From: Rey Curtis MD Attending Dr: Status: DEP ER Ordering Dr: Gonsalo Melendez DO Date: 07/07/24 Location: ED Sex: F C Admitted: Test Reason : CHEST PAIN Blood Pressure : */* mmHG Vent. Rate : 65 BPM Atrial Rate : 65 BPM P-R Int : 132 ms QRS Dur : 96 ms QT Int : 406 ms P-R-T Axes : 49 13 61 degrees QTcB Int : 422 ms Normal sinus rhythm Septal infarct , age undetermined Possible Lateral infarct , age undetermined Cannot rule out Inferior infarct , age undetermined Abnormal ECG Confirmed by EVER MARTINEZ, REY ([id number]), web content editor MICAH SALMERON ([id number]) on 07/08/2024 8:22:21 AM Referred By: Confirmed By: REY CURTIS MD 07/08/2422 Date Rey Curtis MD CC: Dr. Gabriel Galvan MD; Dr. Gonsalo Melendez DO Signed Normal [facility] Basic Metabolic Profile (BMP )on 07-07-2024 BUN/CRE 14.5 RATIO Normal 10-20 [facility] Comment on above: Order Comment: 1 Y Performed By: #### L 500.2500, L501.5425, L100.0100 #### [facility] [address] [place], [address] CA,Total 9.7 mg/dL Normal 8.5-10.1 [facility] Comment on above: Order Comment: 1 Y Performed By: #### L 500.2500, L501.5425, L100.0100 #### [facility] [address] [place], [address] Chloride [Moles/Vol] 106 mmol/L Normal 98-107 [facility] Comment on above: Order Comment: 1 Y Performed By: #### L 500.2500, L501.5425, L100.0100 #### [facility] [address] [place], [address] CO2 [Moles/Vol] 32.0 mmol/L Normal 21.0-32.0 [facility] Comment on above: Order Comment: 1 Y Performed By: #### L 500.2500, L501.5425, L100.0100 #### [facility] [address] [place], [address] Creatinine [Mass/Vol] 0.90 mg/dL Normal 0.55-1.02 [facility] Comment on above: Order Comment: 1 Y Result Comment: The validity of the calculated GFR GFRAA in patients over 70 years has not been determined. Clinical correlation is essential. Performed By: #### L 500.2500, L501.5425, L100.0100 #### [facility] [address] [place], [address] ECRCL 67.20 ml/min Normal [facility] Comment on above: Order Comment: 1 Y Performed By: #### L 500.2500, L501.5425, L100.0100 #### [facility] [address] [place], [address] EST GFR - AA 81 mL/min Normal >60 [facility] Comment on above: Order Comment: 1 Y Result Comment: Afri can [place] GFR Calc Performed By: #### L 500.2500, L501.5425, L100.0100 #### [facility] [address] [place], [address] GAP 4 Low 5-15 [facility] Comment on above: Order Comment: 1 Y Performed By: #### L 500.2500, L501.5425, L100.0100 #### [facility] [address] [place], [address] GFR/1.73 sq M.predicted among non-blacks MDRD (S/P/Bld) [Vol rate/Area] 67 mL/min/{1.73_m2} Normal >60 [facility] Comment on above: Order Comment: 1 Y Result Comment: Non- GFR Calc Performed By: #### L 500.2500, L501.5425, L100.0100 #### [facility] [address] [place], [address] Glucose [Mass/Vol] 102 mg/dL Normal 74-106 [facility] Comment on above: Order Comment: 1 Y Result Comment: Fast ing Glucose result from 100 to 125 mg/dL suggests IMPAIRED HOMEOSTASIS per A.D.A. criteria. Performed By: #### L 500.2500, L501.5425, L100.0100 #### [facility] [address] [place], [address] Potassium [Moles/Vol] 3.6 mmol/L Normal 3.5-5.1 [facility] Comment on above: Order Comment: 1 Y Performed By: #### L 500.2500, L501.5425, L100.0100 #### [facility] [address] [place], [address] Sodium [Moles/Vol] 141 mmol/L Normal 136-145 [facility] Comment on above: Order Comment: 1 Y Performed By: #### L 500.2500, L501.5425, L100.0100 #### [facility] [address] [place], [address] Urea nitrogen [Mass/Vol] 13 mg/dL Normal 7-18 [facility] Comment on above: Order Comment: 1 Y Performed By: #### L 500.2500, L501.5425, L100.0100 #### [facility] [address] [place], [address] CBC W/Diff, Automatedon 10-3 -2023 Absolute Lymph 2.39 X10 3/uL Normal 0.83-4.51 [facility] Comment on above: Performed By: #### L 500.2500, L501.5425, L100.0100 #### [facility] [address] [place], [address] Absolute Neut 3.4 X10 3/uL Normal 2.0-7.7 [facility] Comment on above: Performed By: #### L 500.2500, L501.5425, L100.0100 #### [facility] [address] [place], [address] Basophils/100 WBC (Bld) 0.8 % Normal 0-1 [facility] Comment on above: Performed By: #### L 500.2500, L501.5425, L100.0100 #### [facility] [address] [place], [address] Eosinophils/100 WBC (Bld) 3.7 % Normal 0-5 [facility] Comment on above: Performed By: #### L 500.2500, L501.5425, L100.0100 #### [facility] [address] [place], [address] Erythrocyte distribution width (RBC) [Ratio] 14.0 % Normal 11.6-14.6 [facility] Comment on above: Performed By: #### L 500.2500, L501.5425, L100.0100 #### [facility] [address] [place], [address] Hematocrit (Bld) [Volume fraction] 42.3 % Normal 37-47 [facility] Comment on above: Performed By: #### L 500.2500, L501.5425, L100.0100 #### [facility] [address] [place], [address] Hemoglobin (Bld) [Mass/Vol] 13.4 g/dL Normal 12.0-15.0 [facility] Comment on above: Performed By: #### L 500.2500, L501.5425, L100.0100 #### [facility] [address] [place], [address] IG% 0.300 Normal 0.0-0.9 [facility] Comment on above: Result Comment: IG% - Immature Granulocytes (promyelocytes, myelocytes and metamyelocytes) > 1% indicates that a LEFT SHIFT is Present. Performed By: #### L 500.2500, L501.5425, L100.0100 #### [facility] [address] [place], [address] Lymphocytes/100 WBC (Bld) 36.8 % Normal 19-41 [facility] Comment on above: Performed By: #### L 500.2500, L501.5425, L100.0100 #### [facility] [address] [place], [address] MCH (RBC) [Entitic mass] 30.3 pg Normal 27.0-32.0 [facility] Comment on above: Performed By: #### L 500.2500, L501.5425, L100.0100 #### [facility] [address] [place], [address] MCHC (RBC) [Mass/Vol] 31.7 g/dL Low 32-36 [facility] Comment on above: Performed By: #### L 500.2500, L501.5425, L100.0100 #### [facility] [address] [place], [address] MCV (RBC) [Entitic vol] 95.7 fL Normal 81-99 [facility] Comment on above: Performed By: #### L 500.2500, L501.5425, L100.0100 #### [facility] [address] [place], [address] Monocytes/100 WBC (Bld) 6.9 % Normal 0-10 [facility] Comment on above: Performed By: #### L 500.2500, L501.5425, L100.0100 #### [facility] [address] [place], [address] Neutrophils/100 WBC (Bld) 51.5 % Normal 47-70 [facility] Comment on above: Performed By: #### L 500.2500, L501.5425, L100.0100 #### [facility] [address] [place], [address] Nucleated RBC (Bld) [#/Vol] 0 10*3/uL Normal 0-5 [facility] Comment on above: Performed By: #### L 500.2500, L501.5425, L100.0100 #### [facility] [address] [place], [address] Platelet mean volume (Bld) [Entitic vol] 10.0 fL Normal 6.2-12.0 [facility] Comment on above: Performed By: #### L 500.2500, L501.5425, L100.0100 #### [facility] [address] [place], [address] Platelets (Bld) [#/Vol] 254 10*3/uL Normal 150-450 [facility] Comment on above: Performed By: #### L 500.2500, L501.5425, L100.0100 #### [facility] [address] [place], [address] RBC (Bld) [#/Vol] 4.42 10*6/uL Normal 4.2-5.4 [facility] Comment on above: Performed By: #### L 500.2500, L501.5425, L100.0100 #### [facility] [address] [place], [address] RDW SD 48.8 fl High 35.1-43.9 [facility] Comment on above: Performed By: #### L 500.2500, L501.5425, L100.0100 #### [facility] [address] [place], [address] WBC (Bld) [#/Vol] 6.5 10*3/uL Normal 4.4-11.0 [facility] Comment on above: Performed By: #### L 500.2500, L501.5425, L100.0100 #### [facility] [address] [place], [address] Chest PA and Lateralon 07-07 Chest PA and Lateral [facility] Imaging Services [address] [place] [address] Chest PA and Lateral MR#: [id number] Acct: [id number] Name: MARCIA MASCORRO Rep #: [id number] : 1955 F 68 From: Chucky Sampson MD PCP: Dr. Gabriel Galvan MD Status: REG ER Study: Chest PA and Lateral Date of Exam: 07/07/24 Exam# [id number] Ordering Dr: Gonsalo Melendez DO [id number] STUDY: X-RAY CHEST REASON FOR EXAM: Female, 68 years old. chest pain TECHNIQUE: PA and lateral COMPARISON: September 29, 2023 FINDINGS: The lungs are clear and expanded. There is no demonstrated pleural abnormality. Normal size heart. Normal mediastinum and dru. Normal visualized pulmonary arteries. Mildly calcified tortuous aortic arch and descending thoracic aorta. Dorsal spine demonstrates degenerative change. There is mild wedging of the superior endplate of one of the midthoracic vertebral bodies without well-defined fracture line likely due to chronic compression. Normal visualized ribs, clavicles, and shoulders. Moderate size hiatal hernia is noted There is no demonstrated abnormality of the visualized soft tissue structures of the upper abdomen. RAD/Chest PA and Lateral IMPRESSION: No acute cardiopulmonary pathology. Moderate size hiatal hernia. Probable chronic compression deformity of the mid thoracic spine however if patient is symptomatic CT or MRI would be useful for more definitive evaluation Electronically Signed: Chucky Sampson MD at 18:07 EDT , CC: Dr. Gabriel Galvan MD; Dr. Gonsalo Melendez DO Service Consultant: Signed Normal [facility] Emergency Department Summary on 07-07-[address] [facility] Medical Records Department [address] [place] [id number] Emergency Department Summary 07/07/24 MR#: [id number] Acct: [id number] Name: MARCIA MASCORRO Rep #: [id number] : [id number] 68 From: Gonsalo Howell PCP: Dr. Gabriel Galvan MD Status:DEP ER Location: ED HPI History of Present Illness Chief Complaint: Chest Pain Informant: patient Narrative Narrative: [facility] persistent chest pain since 3 AM. Started in her arm went in her chest around to her back. States heaviness. Recent cough for 3 weeks and subsiding. No fever or chills. She had heart cath in the past with no intervention. She is on Plavix. She took a baby aspirin earlier today. COPD history. History of popliteal artery occlusion the right with surgical intervention. Prior Similar Symptoms: No Recent Illness/Hospitalization: No CVD Risk Factors: Positive for Hypertension, Hypercholesterolemia and Smoking PE Risk Factors: Negative for Recent Travel/Surgery, Recent Immobilization or OCP + Smoking + >/=35 PFSH PFSH Medical History Anxiety and depression Arthritis Atherosclerotic heart disease of [place] coronary artery without angina pectoris Back pain Bullous emphysema Calculus of left kidney Cardiology follow-up encounter Chest pain Chronic cough COPD (chronic obstructive pulmonary disease) COPD with asthma Depression Difficulty chewing DVT (deep venous thrombosis) Easy bruising Elevated troponin Esophagitis, unspecified without bleeding Essential hypertension Excessive bleeding Gastric reflux GERD (gastroesophageal reflux disease) High cholesterol History of CHF (congestive heart failure) History of echocardiogram History of edema History of irregular heartbeat History of non-ST elevation myocardial infarction (NSTEMI) (09/01/21) History of pain when walking History of renal disease History of stress test History of ulceration Hoarseness Hyperlipidemia Injury of back Ischemic cardiomyopathy Kidney stones Leg cramps Myocardial infarct Obesity (BMI 30.0-34.9) Old anterior wall myocardial infarction Opiate dependence EVELYN (obstructive sleep apnea) Osteoporosis Other chronic pain Personal history of transient ischemic attack (TIA), and cerebral infarction without residual deficits Post-menopausal Shortness of breath on exertion Smoker Sustained SVT TIA (transient ischemic attack) Tobacco abuse Unspecified combined 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 Wears glasses Home Medications ???Medication ???Instructions ???Recorded ???Last Taken ???Type clopidogrel 75 mg tablet (Plavix) 75 mg PO DAILY 30 days #30 tabs 01/04/23 09/25/23 Rx lisinopril 2.5 mg tablet 2.5 mg PO DAILY 30 days #30 tabs 01/04/23 06/24/23 Rx ondansetron 4 mg disintegrating 4 mg PO Q8H PRN PRN Nausea #12 tabs 01/13/23 Unknown Rx tablet albuterol sulfate 90 mcg/actuation 2 puff inhalation Q6H PRN 02/17/23 Unknown Rx aerosol inhaler shortness of breath or wheezing #8.5 grams budesonide-formoterol HFA 160 1 puff inhalation BID #10.2 grams 02/17/23 Unknown Rx mcg-4.5 mcg/actuation aerosol inhaler (Symbicort) inhalational spacing device #1 ea 02/17/23 Unknown Rx (Aerochamber MV spacer) tiotropium bromide 2.5 2 puff inhalation DAILY #4 grams 02/17/23 Unknown Rx mcg/actuation mist for inhalation (Spiriva Respimat) pantoprazole 40 mg tablet,delayed 40 mg PO Q12H #60 tabs 06/24/23 09/28/23 Rx release lorazepam 1 mg tablet (Ativan) 1 mg PO BID PRN anxiety 07/16/23 09/28/23 History amiodarone 200 mg tablet 200 mg PO DAILY 07/22/23 Unknown History carvedilol 6.25 mg tablet 6.25 mg PO Q12H 07/29/23 09/28/23 History furosemide 20 mg tablet 20 mg PO Q12H 07/29/23 Unknown History gabapentin 400 mg capsule 400 mg PO Q8H 07/29/23 09/28/23 History nitroglycerin 0.4 mg sublingual 0.4 mg buccal Q5M PRN chest pain 07/29/23 Unknown History tablet oxycodone myristate 9 mg capsule 13.5 mg PO Q12H 07/29/23 Unknown History sprinkle extended release 12 hr(DON'T CRUSH) (Xtampza ER) sucralfate 1 gram tablet 1 g PO Q8H 07/29/23 Unknown History albuterol sulfate 2.5 mg/3 mL 2.5 mg continuous nebulization Q6H 09/05/23 Unknown History (0.083 %) solution for nebulization PRN shortness of breath or wheezing melatonin 3 mg capsule 3 mg PO QHS 09/05/23 Unknown History cyclobenzaprine 5 mg tablet 5 mg PO TID PRN muscle spasm #15 11/30/23 Unknown Rx tabs carvedilol 12.5 mg tablet (Coreg) 12.5 mg PO BID #60 tabs 07/07/24 Unknown Rx Allergy/AdvReac Type Severity Reaction Status Date / Time No Known Allergies Allergy Verified 07/07/24 15:17 Family History Mother Hypertension CAD (more content not included)... Normal [facility] L501.4020on 07-07-2024 TROPONIN-I HS 15 pg/mL Normal 3.0-54.0 [facility] Comment on above: Result Comment: Kelvin duque Note: New Test Units and Gender Specific Reference Ranges. For more information see Policy Stat Procedure [place] High Sensitivity Troponin (TNIH) and attachments. Performed By: #### L 500.2500, L501.5425, L100.0100 #### [facility] [address] [place], [address] L501.5425on 07-07-2024 TROPONIN-I HS 18 pg/mL Normal 3.0-54.0 [facility] Comment on above: Order Comment: 1 Y Result Comment: Kelvin duque Note: New Test Units and Gender Specific Reference Ranges. For more information see Policy Stat Procedure [place] High Sensitivity Troponin (TNIH) and attachments. Performed By: #### L 500.2500, L501.5425, L100.0100 #### [facility] [address] [place], [place], [address] [facility] Telephone ([facility]) ----- MARCIA MASCORRO ([id number]) 1955 F T Date Time Provider Department 06/18/24 ALEX SOLORZANO [facility] During your visit today, we recorded the following information about you: Alex Solorzano PA 06/18/2024 8:07 AM Signed Negative COVID flu RSV Nohemi Conley MA 06/18/2024 9:42 AM Signed Daughter notified. Nohemi Conley MA Allergies As of Date: 06/18/2024 Noted Allergy Reaction CONTRAST DYE (IODINE) 12/20/2023 10 - Anaphylaxis Date Reviewed: 06/17/2024 Reviewed by: Chucky Zepeda APRN.[employer] - Fully Assessed Reason for Visit: Results [95] Prescriptions as of 06/18/2024 - guaiFENesin (MUCINEX) 600 mg 12 hr tablet Take 1 tablet by mouth two times a day as needed for cold/allergy symptoms (cough) for up to 7 days. - omeprazole (PRILOSEC) 40 mg capsule Take 1 capsule by mouth once daily. - Nutritional Supplements (OPTIMENTAL) liqd Take 237 mL by mouth once daily. Okay with what insurance covers - Diaper,Brief, Adult,Disposable (DEPEND EASY FIT UNDERGARMENTS) Size Large pull up. Change depends once every 1-2 hrs. Dx incontinence (788.30) Prolapsed bladder (618.01) - atorvastatin (LIPITOR) 40 mg tablet Take 1 tablet by mouth daily at bedtime. - senna-docusate (SENNA PLUS) 8.6-50 mg per tablet Take 1 tablet by mouth every morning AND 1 tablet daily at bedtime. - tiotropium bromide (SPIRIVA RESPIMAT) 2.5 mcg/actuation inhaler Inhale 2 Puffs as instructed once daily. Inhale two puffs once daily. - sucralfate (CARAFATE) 1 gram tablet Take 1 tablet by mouth before meals and at bedtime. - sodium phosphate-sodium bisphosphate (FLEET) enema 133 mL by RECTAL route as needed for constipation. - potassium chloride ER (KLOR-CON) 20 mEq tablet Take 1 tablet by mouth once daily. - ondansetron (ZOFRAN) 4 mg tablet Take 1 tablet by mouth every 8 hours as needed for nausea/vomiting. - magnesium hydroxide (MILK OF MAGNESIA) 400 mg/5 mL suspension Take 30 mL by mouth once daily as needed for constipation. - lisinopril (ZESTRIL) 5 mg tablet Take 1 tablet by mouth once daily. - gabapentin (NEURONTIN) 400 mg capsule Take 1 capsule by mouth three times a day for 180 days. - furosemide (LASIX) 20 mg tablet Take 1 tablet by mouth two times a day. - DULoxetine (CYMBALTA) 30 mg capsule Take 1 capsule by mouth once daily. - docusate sodium (COLACE) 100 mg capsule Take 1 capsule by mouth two times a day as needed for constipation. - dicyclomine (BENTYL) 10 mg capsule Take 2 capsules by mouth two times a day. - clopidogrel (PLAVIX) 75 mg tablet Take 1 tablet by mouth once daily. - Cholecalciferol, Vitamin D3, 125 mcg (5,000 unit) cap Take 1 capsule by mouth once daily. - carvedilol (COREG) 6.25 mg tablet Take 1 tablet by mouth two times a day with meals. - benzonatate (TESSALON PERLES) 100 mg capsule Take 1 capsule by mouth three times a day as needed for cough. - albuterol-budesonide HFA (AIRSUPRA) 90-80 mcg/actuation inhaler Inhale 2 Puffs as instructed every 2 hours as needed for wheezing/shortness of breath. Do not take more than 12 inhalations in a 24 hour period. - melatonin 10 mg tab Take 1 tablet by mouth at bedtime as needed for insomnia. - oxyCODONE myristate (XTAMPZA ER) 27 mg CSpT Take 1 capsule by mouth two times a day. - acetaminophen (TYLENOL) 650 mg suppository 650 mg by RECTAL route every 4 hours as needed. - acetaminophen (TYLENOL) 325 mg tablet Take 650 mg by mouth every 4 hours as needed. - aluminum-magnesium hydroxide-simethicone (MAALOX,MYLANTA,MAG-AL PLUS) 200-200-20 mg/5 mL suspension Take 30 mL by mouth as needed. - bisacodyl (DULCOLAX) 10 mg supp 10 mg by RECTAL route once daily as needed for constipation. Problem List As Of Date 06/18/2024 Noted Resolved Essential hypertension, benign [I10] Lumbago [M54.50] 12/30/2005 Symptomatic menopausal or female climacteric st*12/30/2005 Anxiety [F41.9] Depression [F32.A] GERD (gastroesophageal reflux disease) [K21.9] Chronic pain [G89.29] COPD with exacerbation (HCC) [J44.1] 12/07/2023 Routine gynecological examination [Z01.419] 06/05/2014 09/23/2022 Well adult exam [Z00.00] 06/05/2014 09/23/2022 Stress incontinence, female [N39.3] 07/07/2014 Mixed hyperlipidemia [E78.2] 07/10/2014 Bladder prolapse, female, acquired [N81.10] 10/04/2014 Diverticulosis [K57.90] 03/20/2015 Smoker [F17.200] 12/28/2015 Epigastric pain [R10.13] 04/16/2016 04/16/2016 Colon cancer screening [Z12.11] 04/16/2016 04/16/2016 Retana's esophagus [K22.70] 08/21/2016 RUQ pain [R10.11] 08/21/2016 12/07/2023 Visual disturbances [H53.9] 08/21/2016 Near syncope [R55] 08/21/2016 09/23/2022 Heart palpitations [R00.2] 09/29/2016 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 Normal [facility] CNOVon 06-17-2024 CNOV Office Visit ([facility] ) ----- MARCIA MASCORRO ([id number]) 1955 F T Date Time Provider Department 06/17/24 3:30 PM CHUCKY ZEPEDA [facility] During your visit today, we recorded the following information about you: Temperature Pulse Respiration Blood pressure 97.8 degrees 89/minute 20/minute 140/92 Weight 86 kg Chucky Zepeda APRN.[employer] 06/17/2024 3:54 PM Signed Subjective HPI Nontoxic-appearing female presents urgent care chief complaint flulike symptoms. Duration symptoms 4 days. Associated symptoms cough chest congestion headache shortness of breath with coughing wheezing sore throat fatigue. Low-grade fevers at home. Positive sick contacts. OTC medication little to no success. Denies any chest pain hemoptysis pleuritic pain new abdominal pain. Past medical history prescription medications allergies reviewed. .Patient presents with: Cough: Chest congestion, headache, SOB, wheeze, sore throat x 4 days PAST MEDICAL HISTORY Diagnosis Date Abdominal aortic aneurysm (HCC) JOVANY (acute kidney injury) (HCC) Anaphylactic reaction due to contrast Anxiety Retana's esophagus Bile leak, postoperative CAD (coronary artery disease) CHF (congestive heart failure) (HCC) Chronic back pain Chronic pain low back, sees pain MGT: Dr. Nayak Compression fracture of thoracic vertebra (HCC) COPD (chronic obstructive pulmonary disease) (HCC) Depression Diabetes mellitus (HCC) Diverticulosis Essential hypertension, benign Sees Dr. Best GERD (gastroesophageal reflux disease) Hyperthyroidism Incontinence 07/07/2014 LV (left ventricular) mural thrombus 12/01/2023 Mixed hyperlipidemia Obesity Opioid dependence (HCC) 01/15/2020 In 180 as of 01/2020 per ER report from [facility]. Palpitation Primary cardiomyopathy (HCC) Pulmonary emphysema (HCC) SVT (supraventricular tachycardia) (HCC) Tremor PAST SURGICAL HISTORY Procedure Laterality Date 2D ECHO (EXEP) 01/19/2017 EF=55%, mild LVH, LA enlargement, TX and TI, Diastolic dysfunction. 2D ECHO (EXEP) 12/18/2017 EF=55%, mild LVH, mild diastolic dysfunct, COLONOSCOPY FLX DX W/COLLJ SPEC WHEN PFRMD 04/16/2016 Colonoscopy mac. repeat 10 yrs ESOPHAGOGASTRODUODENOSCOP Y TRANSORAL DIAGNOSTIC 04/16/2016 EGD mac LAPAROSCOPIC CHOLECYSTECTOMY 12/09/2023 Dr. Tejada TOTAL ABDOMINAL HYSTERECT W/WO RMVL TUBE OVARY Hysterectomy, YANICK ALLERGIES Contrast Dye [Iodine] MEDICATIONS omeprazole (PRILOSEC) 40 mg capsule Take 1 capsule by mouth once daily. Nutritional Supplements (OPTIMENTAL) liqd Take 237 mL by mouth once daily. Okay with what insurance covers Diaper,Brief, Adult,Disposable (DEPEND EASY FIT UNDERGARMENTS) Size Large pull up. Change depends once every 1-2 hrs. 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 senna-docusate (SENNA PLUS) 8.6-50 mg per tablet Take 1 tablet by mouth every morning AND 1 tablet daily at bedtime. tiotropium bromide (SPIRIVA RESPIMAT) 2.5 mcg/actuation inhaler Inhale 2 Puffs as instructed once daily. Inhale two puffs once daily. sucralfate (CARAFATE) 1 gram tablet Take 1 tablet by mouth before meals and at bedtime. sodium phosphate-sodium bisphosphate (FLEET) enema 133 mL by RECTAL route as needed for constipation. potassium chloride ER (KLOR-CON) 20 mEq tablet Take 1 tablet by mouth once daily. ondansetron (ZOFRAN) 4 mg tablet Take 1 tablet by mouth every 8 hours as needed for nausea/vomiting. magnesium hydroxide (MILK OF MAGNESIA) 400 mg/5 mL suspension Take 30 mL by mouth once daily as needed for constipation. lisinopril (ZESTRIL) 5 mg tablet Take 1 tablet by mouth once daily. gabapentin (NEURONTIN) 400 mg capsule Take 1 capsule by mouth three times a day for 180 days. furosemide (LASIX) 20 mg tablet Take 1 tablet by mouth two times a day. DULoxetine (CYMBALTA) 30 mg capsule Take 1 capsule by mouth once daily. docusate sodium (COLACE) 100 mg capsule Take 1 capsule by mouth two times a day as needed for constipation. dicyclomine (BENTYL) 10 mg capsule Take 2 capsules by mouth two times a day. clopidogrel (PLAVIX) 75 mg tablet Take 1 tablet by mouth once daily. Cholecalciferol, Vitamin D3, 125 mcg (5,000 unit) cap Take 1 capsule by mouth once daily. carvedilol (COREG) 6.25 mg tablet Take 1 tablet by mouth two times a day with meals. benzonatate (TESSALON PERLES) 100 mg capsule Take 1 capsule by mouth three times a day as needed for cough. albuterol-budesonide HFA (AIRSUPRA) 90-80 mcg/actuation inhaler Inhale 2 Puffs as instructed every 2 hours as needed for wheezing/shortness of breath. Do not take more than 12 inhalations in a 24 hour period. melatonin 10 mg tab Take 1 tablet by mouth at bedtime as needed for insomnia. oxyCODONE myristate (XTAMPZA ER) 27 mg CSpT Take 1 capsule by mouth two times (more content not included)... Normal [facility] Terri 06-17-2024 [facility] Telephone ([facility]) ----- MARCIA MASCORRO ([id number]) 1955 [facility] Date Time Provider Department 06/17/24 CHUCKY ZEPEDA [facility] During your visit today, we recorded the following information about you: Chucky Zepeda APRN.DONNA 06/17/2024 3:53 PM Signed Please inform patient that chest x-ray is normal. Will call with COVID-19 results. Chucky Zepeda APRN.Elyse Lai LPN 06/17/2024 4:25 PM Signed Patient given results and verbalized understanding of instructions given. Elyse Nieves LPN Allergies As of Date: 06/17/2024 Noted Allergy Reaction CONTRAST DYE (IODINE) 12/20/2023 10 - Anaphylaxis Date Reviewed: 06/17/2024 Reviewed by: Chucky Zepeda APRN.DONNA - Fully Assessed Reason for Visit: Results [95] Prescriptions as of 06/17/2024 - guaiFENesin (MUCINEX) 600 mg 12 hr tablet Take 1 tablet by mouth two times a day as needed for cold/allergy symptoms (cough) for up to 7 days. - omeprazole (PRILOSEC) 40 mg capsule Take 1 capsule by mouth once daily. - Nutritional Supplements (OPTIMENTAL) liqd Take 237 mL by mouth once daily. Okay with what insurance covers - Diaper,Brief, Adult,Disposable (DEPEND EASY FIT UNDERGARMENTS) Size Large pull up. Change depends once every 1-2 hrs. Dx incontinence (788.30) Prolapsed bladder (618.01) - atorvastatin (LIPITOR) 40 mg tablet Take 1 tablet by mouth daily at bedtime. - senna-docusate (SENNA PLUS) 8.6-50 mg per tablet Take 1 tablet by mouth every morning AND 1 tablet daily at bedtime. - tiotropium bromide (SPIRIVA RESPIMAT) 2.5 mcg/actuation inhaler Inhale 2 Puffs as instructed once daily. Inhale two puffs once daily. - sucralfate (CARAFATE) 1 gram tablet Take 1 tablet by mouth before meals and at bedtime. - sodium phosphate-sodium bisphosphate (FLEET) enema 133 mL by RECTAL route as needed for constipation. - potassium chloride ER (KLOR-CON) 20 mEq tablet Take 1 tablet by mouth once daily. - ondansetron (ZOFRAN) 4 mg tablet Take 1 tablet by mouth every 8 hours as needed for nausea/vomiting. - magnesium hydroxide (MILK OF MAGNESIA) 400 mg/5 mL suspension Take 30 mL by mouth once daily as needed for constipation. - lisinopril (ZESTRIL) 5 mg tablet Take 1 tablet by mouth once daily. - gabapentin (NEURONTIN) 400 mg capsule Take 1 capsule by mouth three times a day for 180 days. - furosemide (LASIX) 20 mg tablet Take 1 tablet by mouth two times a day. - DULoxetine (CYMBALTA) 30 mg capsule Take 1 capsule by mouth once daily. - docusate sodium (COLACE) 100 mg capsule Take 1 capsule by mouth two times a day as needed for constipation. - dicyclomine (BENTYL) 10 mg capsule Take 2 capsules by mouth two times a day. - clopidogrel (PLAVIX) 75 mg tablet Take 1 tablet by mouth once daily. - Cholecalciferol, Vitamin D3, 125 mcg (5,000 unit) cap Take 1 capsule by mouth once daily. - carvedilol (COREG) 6.25 mg tablet Take 1 tablet by mouth two times a day with meals. - benzonatate (TESSALON PERLES) 100 mg capsule Take 1 capsule by mouth three times a day as needed for cough. - albuterol-budesonide HFA (AIRSUPRA) 90-80 mcg/actuation inhaler Inhale 2 Puffs as instructed every 2 hours as needed for wheezing/shortness of breath. Do not take more than 12 inhalations in a 24 hour period. - melatonin 10 mg tab Take 1 tablet by mouth at bedtime as needed for insomnia. - oxyCODONE myristate (XTAMPZA ER) 27 mg CSpT Take 1 capsule by mouth two times a day. - acetaminophen (TYLENOL) 650 mg suppository 650 mg by RECTAL route every 4 hours as needed. - acetaminophen (TYLENOL) 325 mg tablet Take 650 mg by mouth every 4 hours as needed. - aluminum-magnesium hydroxide-simethicone (MAALOX,MYLANTA,MAG-AL PLUS) 200-200-20 mg/5 mL suspension Take 30 mL by mouth as needed. - bisacodyl (DULCOLAX) 10 mg supp 10 mg by RECTAL route once daily as needed for constipation. Problem List As Of Date 06/17/2024 Noted Resolved Essential hypertension, benign [I10] Lumbago [M54.50] 12/30/2005 Symptomatic menopausal or female climacteric st*12/30/2005 Anxiety [F41.9] Depression [F32.A] GERD (gastroesophageal reflux disease) [K21.9] Chronic pain [G89.29] COPD with exacerbation (HCC) [J44.1] 12/07/2023 Routine gynecological examination [Z01.419] 06/05/2014 09/23/2022 Well adult exam [Z00.00] 06/05/2014 09/23/2022 Stress incontinence, female [N39.3] 07/07/2014 Mixed hyperlipidemia [E78.2] 07/10/2014 Bladder prolapse, female, acquired [N81.10] 10/04/2014 Diverticulosis [K57.90] 03/20/2015 Smoker [F17.200] 12/28/2015 Epigastric pain [R10.13] 04/16/2016 04/16/2016 Colon cancer screening [Z12.11] 04/16/2016 04/16/2016 Retana's esophagus [K22.70] 08/21/2016 RUQ pain [R10.11] 08/21/2016 12/07/2023 Visual disturbances [H53.9] 08/21/2016 Near syncope [R55] 08/21/2016 09/23/2022 Heart palpitations [R00.2] 09/29/2016 Neoplasm of uncert (more content not included)... Normal [facility] COVID AND INFLUENZA A/B AND RSV PCR, ROUTINEon 06-17-2024 SARS-CoV-2 (COVID-19) RNA KAYDEN+probe Ql (Unsp spec) SARS-COV-2 (AGENT OF COVID-19) RNA: Not detected INFLUENZA A RNA: Not detected INFLUENZA B RNA: Not detected RESPIRATORY SYNCYTIAL VIRUS (RSV) RNA: Not detected Normal [facility] Comment on above: Performed By: #### C VFLRS ####[facility] LABCLIA [id number] [place] [address] [place] XR CHEST 2V FRONTAL/LATon XR CHEST 2V FRONTAL/LAT * * *Final Repor t* * * DATE OF EXAM: Jun 17 2024 3:30PM WOX [id number] - XR CHEST 2V FRONTAL/LAT / PROCEDURE REASON: Acute cough * * * * Physician Interpretation * * * * EXAMINATION: CHEST RADIOGRAPH (2 VIEW FRONTAL and LATERAL) CLINICAL HISTORY: Acute cough MQ: XC2_6 EXAM DATE/TIME: 06/17/2024 3:30 PM COMPARISON: Chest x-ray 12/23/2023 RESULT: Lines, tubes, and devices: None. Lungs and pleura: No consolidation. No lung mass. No pleural effusion. No pneumothorax. Cardiomediastinal silhouette: Normal cardiomediastinal silhouette. Bones and soft tissues: Degenerative disease of the thoracic spine. Moderate hiatal hernia. IMPRESSION: No acute radiographic abnormality. Service Consultant: [facility] Transcribe Date/Time: Jun 17 2024 3:46P Dictated by : CARLA LANGSTON MD This examination was interpreted and the report reviewed and electronically signed by: CARLA LANGSTON MD on Jun 17 2024 3:47PM EST [id number] Normal [facility] XR Chest PA and Lateralon IMPRESSION: No acute radiographic abnormality. Service Consultant: [facility] Transcribe Date/Time: Jun 17 2024 3:46P Dictated by : CARLA LANGSTON MD This examination was interpreted and the report reviewed and electronically signed by: CARLA LANGSTON MD on Jun 17 2024 3:47PM EST DIVISION OF RADIOLOGY * * *Final Report* * * DATE OF EXAM: Jun 17 2024 3:30PM WOX [id number] - XR CHEST 2V FRONTAL/LAT / PROCEDURE REASON: Acute cough * * * * Physician Interpretation * * * * EXAMINATION: CHEST RADIOGRAPH (2 VIEW FRONTAL & LATERAL) CLINICAL HISTORY: Acute cough MQ: XC2_6 EXAM DATE/TIME: 06/17/2024 3:30 PM COMPARISON: Chest x-ray 12/23/2023 RESULT: Lines, tubes, and devices: None. Lungs and pleura: No consolidation. No lung mass. No pleural effusion. No pneumothorax. Cardiomediastinal silhouette: Normal cardiomediastinal silhouette. Bones and soft tissues: Degenerative disease of the thoracic spine. Moderate hiatal hernia. DIVISION OF RADIOLOGY Provider, [facility] - 06/17/2024 * * *Final Report* * * DATE OF EXAM: Jun 17 2024 3:30PM WOX [id number] - XR CHEST 2V FRONTAL/LAT / PROCEDURE REASON: Acute cough * * * * Physician Interpretation * * * * EXAMINATION: CHEST RADIOGRAPH (2 VIEW FRONTAL & LATERAL) CLINICAL HISTORY: Acute cough MQ: XC2_6 EXAM DATE/TIME: 06/17/2024 3:30 PM COMPARISON: Chest x-ray 12/23/2023 RESULT: Lines, tubes, and devices: None. Lungs and pleura: No consolidation. No lung mass. No pleural effusion. No pneumothorax. Cardiomediastinal silhouette: Normal cardiomediastinal silhouette. Bones and soft tissues: Degenerative disease of the thoracic spine. Moderate hiatal hernia. IMPRESSION IMPRESSION: No acute radiographic abnormality. Service Consultant: ANNE Transcribe Date/Time: Jun 17 2024 3:46P Dictated by : CARLA LANGSTON MD This examination was interpreted and the report reviewed and electronically signed by: CARLA LANGSTON MD on Jun 17 2024 3:47PM [facility] Radiology Study observation (narrative) Doris jacobo [facility] XR Chest PA and LateralOrder ed By: [facility] Provider on 06-17-2024 [facility] [place] 06-03-2024 CNPN Telephone (INTMWS) ----- MARCIA MASCORRO ([id number]) 1955 F CHT Date Time Provider Department 06/03/24 GABRIEL GALVAN INTMWS During your visit today, we recorded the following information about you: Micah Paige RN 06/03/2024 4:00 PM Signed Pt called in for lab results. Let her know, Labs overall are stable. No changes needed at this time and to keep next scheduled appointment. Thanks. Nora Crespo APRN.[employer] Micah Paige RN Allergies As of Date: 06/03/2024 Noted Allergy Reaction CONTRAST DYE (IODINE) 12/20/2023 10 - Anaphylaxis Date Reviewed: 05/30/2024 Reviewed by: Nora Crespo APRN.[employer] - Fully Assessed Reason for Visit: Results [95] Prescriptions as of 06/03/2024 - omeprazole (PRILOSEC) 40 mg capsule Take 1 capsule by mouth once daily. - Nutritional Supplements (OPTIMENTAL) liqd Take 237 mL by mouth once daily. Okay with what insurance covers - Diaper,Brief, Adult,Disposable (DEPEND EASY FIT UNDERGARMENTS) Size Large pull up. Change depends once every 1-2 hrs. Dx incontinence (788.30) Prolapsed bladder (618.01) - atorvastatin (LIPITOR) 40 mg tablet Take 1 tablet by mouth daily at bedtime. - senna-docusate (SENNA PLUS) 8.6-50 mg per tablet Take 1 tablet by mouth every morning AND 1 tablet daily at bedtime. - tiotropium bromide (SPIRIVA RESPIMAT) 2.5 mcg/actuation inhaler Inhale 2 Puffs as instructed once daily. Inhale two puffs once daily. - sucralfate (CARAFATE) 1 gram tablet Take 1 tablet by mouth before meals and at bedtime. - sodium phosphate-sodium bisphosphate (FLEET) enema 133 mL by RECTAL route as needed for constipation. - potassium chloride ER (KLOR-CON) 20 mEq tablet Take 1 tablet by mouth once daily. - ondansetron (ZOFRAN) 4 mg tablet Take 1 tablet by mouth every 8 hours as needed for nausea/vomiting. - magnesium hydroxide (MILK OF MAGNESIA) 400 mg/5 mL suspension Take 30 mL by mouth once daily as needed for constipation. - LORazepam (ATIVAN) 1 mg tablet Take 1 tablet by mouth three times a day for 14 days. - lisinopril (ZESTRIL) 5 mg tablet Take 1 tablet by mouth once daily. - gabapentin (NEURONTIN) 400 mg capsule Take 1 capsule by mouth three times a day for 180 days. - furosemide (LASIX) 20 mg tablet Take 1 tablet by mouth two times a day. - DULoxetine (CYMBALTA) 30 mg capsule Take 1 capsule by mouth once daily. - docusate sodium (COLACE) 100 mg capsule Take 1 capsule by mouth two times a day as needed for constipation. - dicyclomine (BENTYL) 10 mg capsule Take 2 capsules by mouth two times a day. - clopidogrel (PLAVIX) 75 mg tablet Take 1 tablet by mouth once daily. - Cholecalciferol, Vitamin D3, 125 mcg (5,000 unit) cap Take 1 capsule by mouth once daily. - carvedilol (COREG) 6.25 mg tablet Take 1 tablet by mouth two times a day with meals. - benzonatate (TESSALON PERLES) 100 mg capsule Take 1 capsule by mouth three times a day as needed for cough. - albuterol-budesonide HFA (AIRSUPRA) 90-80 mcg/actuation inhaler Inhale 2 Puffs as instructed every 2 hours as needed for wheezing/shortness of breath. Do not take more than 12 inhalations in a 24 hour period. - melatonin 10 mg tab Take 1 tablet by mouth at bedtime as needed for insomnia. - oxyCODONE myristate (XTAMPZA ER) 27 mg CSpT Take 1 capsule by mouth two times a day. - acetaminophen (TYLENOL) 650 mg suppository 650 mg by RECTAL route every 4 hours as needed. - acetaminophen (TYLENOL) 325 mg tablet Take 650 mg by mouth every 4 hours as needed. - aluminum-magnesium hydroxide-simethicone (MAALOX,MYLANTA,MAG-AL PLUS) 200-200-20 mg/5 mL suspension Take 30 mL by mouth as needed. - bisacodyl (DULCOLAX) 10 mg supp 10 mg by RECTAL route once daily as needed for constipation. Problem List As Of Date 06/03/2024 Noted Resolved Essential hypertension, benign [I10] Lumbago [M54.50] 12/30/2005 Symptomatic menopausal or female climacteric st*12/30/2005 Anxiety [F41.9] Depression [F32.A] GERD (gastroesophageal reflux disease) [K21.9] Chronic pain [G89.29] COPD with exacerbation (HCC) [J44.1] 12/07/2023 Routine gynecological examination [Z01.419] 06/05/2014 09/23/2022 Well adult exam [Z00.00] 06/05/2014 09/23/2022 Stress incontinence, female [N39.3] 07/07/2014 Mixed hyperlipidemia [E78.2] 07/10/2014 Bladder prolapse, female, acquired [N81.10] 10/04/2014 Diverticulosis [K57.90] 03/20/2015 Smoker [F17.200] 12/28/2015 Epigastric pain [R10.13] 04/16/2016 04/16/2016 Colon cancer screening [Z12.11] 04/16/2016 04/16/2016 Retana's esophagus [K22.70] 08/21/2016 RUQ pain [R10.11] 08/21/2016 12/07/2023 Visual disturbances [H53.9] 08/21/2016 Near syncope [R55] 08/21/2016 09/23/2022 Heart palpitations [R00.2] 09/29/2016 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 Normal [facility] 25(OH)D3 [facility] 25-hydroxyvitamin D3 [Mass/Vol] 33.6 ng/mL Normal 31.0-80.0 [facility] Comment on above: Order Comment: Speci men Type: BLOOD SPECIMENOrdering Facility: [facility] Address: [address] [place] [address] Result Comment: Clas sification of 25 [place] Vitamin D status: Deficiency/Insufficiency: < or = 30 ng/ml. Sufficiency/Optimal Levels: 31-80 ng/mL Toxicity: > 100 ng/mL. Test performed by chemiluminescent immunoassay. Performed By: #### 1 989-3 ####[facility] LABCLIA [id number] [place] [address] [place] CBC W Auto Differential pane l (Bld)on 05-30-2024 Basophils (Bld) [#/Vol] 0.06 10*3/uL [facility] Basophils/100 WBC (Bld) 0.9 % C [facility] Differential cell count method Nom (Bld) Auto [facility] Eosinophils (Bld) [#/Vol] 0.34 10*3/uL [facility] Eosinophils/100 WBC (Bld) 4.8 % [facility] Erythrocyte distribution width (RBC) [Ratio] 13.2 % 11.5 - 15.0 % [facility] Hematocrit (Bld) [Volume fraction] 42.1 % 36.0 - 46.0 % [facility] Hemoglobin (Bld) [Mass/Vol] 13.3 g/dL 11.5 - 15.5 g/dL [facility] Immature granulocytes (Bld) [#/Vol] [facility] Immature granulocytes/100 WBC (Bld) 0.1 % [facility] Lymphocytes (Bld) [#/Vol] 3.11 10*3/uL [facility] Lymphocytes/100 WBC (Bld) 44.1 % [facility] MCH (RBC) [Entitic mass] 30.2 pg 26. 0 - 34.0 pg [facility] MCHC (RBC) [Mass/Vol] 31.6 g/dL 30.5 - 36.0 g/dL [facility] MCV (RBC) [Entitic vol] 95.5 fL 80.0 - 100.0 fL [facility] Monocytes (Bld) [#/Vol] 0.51 10*3/uL [facility] Monocytes/100 WBC (Bld) 7.2 % [facility] Neutrophils (Bld) [#/Vol] 3.02 10*3/uL [facility] Neutrophils/100 WBC (Bld) 42.9 % [facility] Nucleated RBC (Bld) [#/Vol] [facility] Nucleated RBC/100 WBC (Bld) [Ratio] 0.0 % /100 WBC [facility] Platelet mean volume (Bld) [Entitic vol] 9.9 fL 9.0 - 12.7 fL [facility] Platelets (Bld) [#/Vol] 199 10*3/uL [facility] RBC (Bld) [#/Vol] 4.41 10*6/uL 3.90 - 5.20 m/uL [facility] WBC (Bld) [#/Vol] 7.05 10*3/uL [facility] Basophils (Bld) [#/Vol] 0.06 10*3/uL Normal <0.11 [facility] Comment on above: Order Comment: Speci men Type: BLOOD SPECIMENOrdering Facility: [facility] Address: [address] [place] [address] Performed By: #### 5 7021-8 ####[facility] LABCLIA [id number] [place] [address] [place] Basophils/100 WBC (Bld) 0.9 % Normal C [facility] Comment on above: Order Comment: Speci men Type: BLOOD SPECIMENOrdering Facility: [facility] Address: [address] [place] [address] Performed By: #### 5 7021-8 ####[facility] LABCLIA [id number] [place] [address] [place] Differential cell count method Nom (Bld) Auto Normal [facility] Comment on above: Order Comment: Speci men Type: BLOOD SPECIMENOrdering Facility: [facility] Address: [address] [place] [address] Performed By: #### 5 7021-8 ####[facility] LABCLIA [id number] [place] [address] [place] Eosinophils (Bld) [#/Vol] 0.34 10*3/uL Normal <0.46 [facility] Comment on above: Order Comment: Speci men Type: BLOOD SPECIMENOrdering Facility: [facility] Address: [address] [place] [address] Performed By: #### 5 7021-8 ####[facility] LABCLIA [id number] [place] [address] [place] Eosinophils/100 WBC (Bld) 4.8 % Normal [facility] Comment on above: Order Comment: Speci men Type: BLOOD SPECIMENOrdering Facility: [facility] Address: [address] [place] [address] Performed By: #### 5 7021-8 ####[facility] LABCLIA [id number] [place] [address] [place] Erythrocyte distribution width (RBC) [Ratio] 13.2 % Normal 11.5-15.0 [facility] Comment on above: Order Comment: Speci men Type: BLOOD SPECIMENOrdering Facility: [facility] Address: [address] [place] [address] Performed By: #### 5 7021-8 ####[facility] LABIA [id number] [place] [address] [place] Hematocrit (Bld) [Volume fraction] 42.1 % Normal 36.0-46.0 [facility] Comment on above: Order Comment: Speci men Type: BLOOD SPECIMENOrdering Facility: [facility] Address: [address] [place] [address] Performed By: #### 5 7021-8 ####[facility] LABIA [id number] [place] [address] [place] Hemoglobin (Bld) [Mass/Vol] 13.3 g/dL Normal 11.5-15.5 [facility] Comment on above: Order Comment: Speci men Type: BLOOD SPECIMENOrdering Facility: [facility] Address: [address] [place] [address] Performed By: #### 5 7021-8 ####[facility] LABIA [id number] [place] [address] [place] Immature granulocytes (Bld) [#/Vol] 10*3/uL Normal <0.10 [facility] Comment on above: Order Comment: Speci men Type: BLOOD SPECIMENOrdering Facility: [facility] Address: [address] [place] [address] Performed By: #### 5 7021-8 ####[facility] LABIA [id number] [place] [address] [place] Immature granulocytes/100 WBC (Bld) 0.1 % Normal [facility] Comment on above: Order Comment: Speci men Type: BLOOD SPECIMENOrdering Facility: [facility] Address: [address] [place] [address] Performed By: #### 5 7021-8 ####[facility] LABCLIA [id number] [place] [address] [place] Lymphocytes (Bld) [#/Vol] 3.11 10*3/uL Normal 1.00-4.00 [facility] Comment on above: Order Comment: Speci men Type: BLOOD SPECIMENOrdering Facility: [facility] Address: [address] [place] [address] Performed By: #### 5 7021-8 ####[facility] LABCLIA [id number] [place] [address] [place] Lymphocytes/100 WBC (Bld) 44.1 % Normal [facility] Comment on above: Order Comment: Speci men Type: BLOOD SPECIMENOrdering Facility: [facility] Address: [address] [place] [address] Performed By: #### 5 7021-8 ####[facility] LABCLIA [id number] [place] [address] [place] MCH (RBC) [Entitic mass] 30.2 pg Normal 26.0-34.0 [facility] Comment on above: Order Comment: Speci men Type: BLOOD SPECIMENOrdering Facility: [facility] Address: [address] [place] [address] Performed By: #### 5 7021-8 ####[facility] LABCLIA [id number] [place] [address] [place] MCHC (RBC) [Mass/Vol] 31.6 g/dL Normal 30.5-36.0 [facility] Comment on above: Order Comment: Speci men Type: BLOOD SPECIMENOrdering Facility: [facility] Address: [address] [place] [address] Performed By: #### 5 7021-8 ####[facility] LABCLIA [id number] [place] [address] [place] MCV (RBC) [Entitic vol] 95.5 fL Normal 80.0-100.[address] [facility] Comment on above: Order Comment: Speci men Type: BLOOD SPECIMENOrdering Facility: [facility] Address: [address] [place] [address] Performed By: #### 5 7021-8 ####[facility] LABCLIA [id number] [place] [address] [place] Monocytes (Bld) [#/Vol] 0.51 10*3/uL Normal <0.87 [facility] Comment on above: Order Comment: Speci men Type: BLOOD SPECIMENOrdering Facility: [facility] Address: [address] [place] [address] Performed By: #### 5 7021-8 ####[facility] LABCLIA [id number] [place] [address] [place] Monocytes/100 WBC (Bld) 7.2 % Normal C [facility] Comment on above: Order Comment: Speci men Type: BLOOD SPECIMENOrdering Facility: [facility] Address: [address] [place] [address] Performed By: #### 5 7021-8 ####[facility] LABCLIA [id number] [place] [address] [place] Neutrophils (Bld) [#/Vol] 3.02 10*3/uL Normal 1.45-7.50 [facility] Comment on above: Order Comment: Speci men Type: BLOOD SPECIMENOrdering Facility: [facility] Address: [address] [place] [address] Performed By: #### 5 7021-8 ####[facility] LABCLIA [id number] [place] [address] [place] Neutrophils/100 WBC (Bld) 42.9 % Normal [facility] Comment on above: Order Comment: Speci men Type: BLOOD SPECIMENOrdering Facility: [facility] Address: [address] [place] [address] Performed By: #### 5 7021-8 ####[facility] LABCLIA [id number] [place] [address] [place] Nucleated RBC (Bld) [#/Vol] 10*3/uL Normal <0.01 [facility] Comment on above: Order Comment: Speci men Type: BLOOD SPECIMENOrdering Facility: [facility] Address: [address] [place] [address] Performed By: #### 5 7021-8 ####[facility] LABCLIA [id number] [place] [address] [place] Nucleated RBC/100 WBC (Bld) [Ratio] 0.0 /100 WBC Normal [facility] Comment on above: Order Comment: Speci men Type: BLOOD SPECIMENOrdering Facility: [facility] Address: [address] [place] [address] Performed By: #### 5 7021-8 ####[facility] LABIA [id number] [place] [address] [place] Platelet mean volume (Bld) [Entitic vol] 9.9 fL Normal 9.0-12.7 [facility] Comment on above: Order Comment: Speci men Type: BLOOD SPECIMENOrdering Facility: [facility] Address: [address] [place] [address] Performed By: #### 5 7021-8 ####[facility] LABCLIA [id number] [place] [address] [place] Platelets (Bld) [#/Vol] 199 10*3/uL Normal 150-400 [facility] Comment on above: Order Comment: Speci men Type: BLOOD SPECIMENOrdering Facility: [facility] Address: [address] [place] [address] Performed By: #### 5 7021-8 ####[facility] LABCLIA [id number] [place] [address] [place] RBC (Bld) [#/Vol] 4.41 10*6/uL Normal 3.90-5.20 [facility] Comment on above: Order Comment: Speci men Type: BLOOD SPECIMENOrdering Facility: [facility] Address: [address] [place] [address] Performed By: #### 5 7021-8 ####[facility] LABCLIA [id number] [place] [address] [place] WBC (Bld) [#/Vol] 7.05 10*3/uL Normal 3.70-11.00 [facility] Comment on above: Order Comment: Speci men Type: BLOOD SPECIMENOrdering Facility: [facility] Address: [address] [place] [address] Performed By: #### 5 7021-8 ####[facility] LABCLIA [id number] [address] [place] CNOVon 05-30-2024 CNOV Office Visit (INTMWS ) ----- MARCIA MASCORRO ([id number]) 1955 F [facility] Date Time Provider Department 05/30/24 1:00 PM NORA CRESPO INTMWS During your visit today, we recorded the following information about you: Pulse Blood pressure Weight 69/minute 112/80 86.5 kg Nora Crespo APRN.[employer] 05/30/2024 2:43 PM Signed SUBJECTIVE Marcia Mascorro is a 68 year old female here today for a check up on her medical problems. Chief Complaint Patient presents with: Recheck: or respiratory failure and verify medications Medication Request: is asking for omeprazole, is needing a refill on pain medications. Requesting a written script for liquid national supplement due to hiatal hernia is not eating very well and large pull's quantity of 100 if possible HPI Marcia is a 68 year old female established patient of Gabriel Galvan MD. Here today for follow up, was just recently discharged from [facility] on 05/24/2024 and moved in to [facility] for assisted living 3 days ago. Accompanied by her daughter today. She has a significant hiatal hernia. Going to see Dr. Mcduffie. Appetite is not great. Weight slowly decreasing. Would like a script for protein shakes and to change Protonix to omeprazole since omeprazole is more effective for her. She does have a history of chronic pain. Seeing Dr. Rai for pain. Was having prescriptions done by SNF provider while there. HTN controlled. No recent labs that she can recall. HLD, on atorvastatin. DM previously controlled, no recent hgba1c. Needs a script for adult briefs because of urinary incontinence issues , over active bladder. Would like to have a cat to help with her anxiety. Her medications were reviewed today and her list is now up to date. Medications Current Outpatient Medications Medication Sig senna-docusate (SENNA PLUS) 8.6-50 mg per tablet Take 1 tablet by mouth every morning AND 1 tablet daily at bedtime. tiotropium bromide (SPIRIVA RESPIMAT) 2.5 mcg/actuation inhaler Inhale 2 Puffs as instructed once daily. Inhale two puffs once daily. sucralfate (CARAFATE) 1 gram tablet Take 1 tablet by mouth before meals and at bedtime. sodium phosphate-sodium bisphosphate (FLEET) enema 133 mL by RECTAL route as needed for constipation. potassium chloride ER (KLOR-CON) 20 mEq tablet Take 1 tablet by mouth once daily. ondansetron (ZOFRAN) 4 mg tablet Take 1 tablet by mouth every 8 hours as needed for nausea/vomiting. magnesium hydroxide (MILK OF MAGNESIA) 400 mg/5 mL suspension Take 30 mL by mouth once daily as needed for constipation. LORazepam (ATIVAN) 1 mg tablet Take 1 tablet by mouth three times a day for 14 days. lisinopril (ZESTRIL) 5 mg tablet Take 1 tablet by mouth once daily. gabapentin (NEURONTIN) 400 mg capsule Take 1 capsule by mouth three times a day for 180 days. furosemide (LASIX) 20 mg tablet Take 1 tablet by mouth two times a day. DULoxetine (CYMBALTA) 30 mg capsule Take 1 capsule by mouth once daily. docusate sodium (COLACE) 100 mg capsule Take 1 capsule by mouth two times a day as needed for constipation. dicyclomine (BENTYL) 10 mg capsule Take 2 capsules by mouth two times a day. clopidogrel (PLAVIX) 75 mg tablet Take 1 tablet by mouth once daily. Cholecalciferol, Vitamin D3, 125 mcg (5,000 unit) cap Take 1 capsule by mouth once daily. carvedilol (COREG) 6.25 mg tablet Take 1 tablet by mouth two times a day with meals. benzonatate (TESSALON PERLES) 100 mg capsule Take 1 capsule by mouth three times a day as needed for cough. albuterol-budesonide HFA (AIRSUPRA) 90-80 mcg/actuation inhaler Inhale 2 Puffs as instructed every 2 hours as needed for wheezing/shortness of breath. Do not take more than 12 inhalations in a 24 hour period. melatonin 10 mg tab Take 1 tablet by mouth at bedtime as needed for insomnia. oxyCODONE myristate (XTAMPZA ER) 27 mg CSpT Take 1 capsule by mouth two times a day. acetaminophen (TYLENOL) 650 mg suppository 650 mg by RECTAL route every 4 hours as needed. acetaminophen (TYLENOL) 325 mg tablet Take 650 mg by mouth every 4 hours as needed. aluminum-magnesium hydroxide-simethicone (MAALOX,MYLANTA,MAG-AL PLUS) 200-200-20 mg/5 mL suspension Take 30 mL by mouth as needed. bisacodyl (DULCOLAX) 10 mg supp 10 mg by RECTAL route once daily as needed for constipation. omeprazole (PRILOSEC) 40 mg capsule Take 1 capsule by mouth once daily. Nutritional Supplements (OPTIMENTAL) liqd Take 237 mL by mouth once daily. Okay with what insurance covers Diaper,Brief, Adult,Disposable (DEPEND EASY FIT UNDERGARMENTS) Size Large pull up. Change depends once every 1-2 hrs. 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 No current facility-administered medications for this visit. ALLERGIES Allergen Reactions Contrast Dye [Iodin* A (more content not included)... [facility]INTMWS[facility] ----- MARCIA MASCORRO ([id number]) 1955 F T Date Time Provider Department 05/30/24 NORA CRESPO INTMWS During your visit today, we recorded the following information about you: Nora Crespo APRN.CNP 05/30/2024 2:45 PM Signed Patient has been seeing Dr. Rai for pain mgmt and was being prescribed her oxycodone (Xtampza ER) by the [facility] provider. Can we verify if they would take over prescribing of this now that she is discharged from [facility]. Thanks Marisa Mcdermott LPN 05/30/2024 4:[address] PM [address] Spoke with Dr Forrest's office and they have been prescribing her medication. She was given a short supply as she was due for an appointment that was scheduled for today but missed. Spoke with daughter Marleny and made her aware that Dr. Forrest has been prescribing the oxycodone and missed appointment. Apparently daughter was asking for Nora to prescribe the norco for break through pain. Did encourage daughter to rescheduled missed appointment and discuss both pain medication usage. Nora Crespo APRN.CNP 05/30/2024 4:04 PM Signed Noted and agree, given the high MEDs and even higher with the use of both the norco and the Xtampza I do agree this should be addressed with pain management. Hallie Gonzalez RN 05/30/2024 5:56 PM Signed Spoke with patient. Given message from provider's office. Patient verbalizes understanding. 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 - Nutritional Supplements (OPTIMENTAL) liqd Take 237 mL by mouth once daily. Okay with what insurance covers - Diaper,Brief, Adult,Disposable (DEPEND EASY FIT UNDERGARMENTS) Size Large pull up. Change depends once every 1-2 hrs. Dx incontinence (788.30) Prolapsed bladder (618.01) - atorvastatin (LIPITOR) 40 mg tablet Take 1 tablet by mouth daily at bedtime. - senna-docusate (SENNA PLUS) 8.6-50 mg per tablet Take 1 tablet by mouth every morning AND 1 tablet daily at bedtime. - tiotropium bromide (SPIRIVA RESPIMAT) 2.5 mcg/actuation inhaler Inhale 2 Puffs as instructed once daily. Inhale two puffs once daily. - sucralfate (CARAFATE) 1 gram tablet Take 1 tablet by mouth before meals and at bedtime. - sodium phosphate-sodium bisphosphate (FLEET) enema 133 mL by RECTAL route as needed for constipation. - potassium chloride ER (KLOR-CON) 20 mEq tablet Take 1 tablet by mouth once daily. - ondansetron (ZOFRAN) 4 mg tablet Take 1 tablet by mouth every 8 hours as needed for nausea/vomiting. - magnesium hydroxide (MILK OF MAGNESIA) 400 mg/5 mL suspension Take 30 mL by mouth once daily as needed for constipation. - LORazepam (ATIVAN) 1 mg tablet Take 1 tablet by mouth three times a day for 14 days. - lisinopril (ZESTRIL) 5 mg tablet Take 1 tablet by mouth once daily. - gabapentin (NEURONTIN) 400 mg capsule Take 1 capsule by mouth three times a day for 180 days. - furosemide (LASIX) 20 mg tablet Take 1 tablet by mouth two times a day. - DULoxetine (CYMBALTA) 30 mg capsule Take 1 capsule by mouth once daily. - docusate sodium (COLACE) 100 mg capsule Take 1 capsule by mouth two times a day as needed for constipation. - dicyclomine (BENTYL) 10 mg capsule Take 2 capsules by mouth two times a day. - clopidogrel (PLAVIX) 75 mg tablet Take 1 tablet by mouth once daily. - Cholecalciferol, Vitamin D3, 125 mcg (5,000 unit) cap Take 1 capsule by mouth once daily. - carvedilol (COREG) 6.25 mg tablet Take 1 tablet by mouth two times a day with meals. - benzonatate (TESSALON PERLES) 100 mg capsule Take 1 capsule by mouth three times a day as needed for cough. - albuterol-budesonide HFA (AIRSUPRA) 90-80 mcg/actuation inhaler Inhale 2 Puffs as instructed every 2 hours as needed for wheezing/shortness of breath. Do not take more than 12 inhalations in a 24 hour period. - melatonin 10 mg tab Take 1 tablet by mouth at bedtime as needed for insomnia. - oxyCODONE myristate (XTAMPZA ER) 27 mg CSpT Take 1 capsule by mouth two times a day. - acetaminophen (TYLENOL) 650 mg suppository 650 mg by RECTAL route every 4 hours as needed. - acetaminophen (TYLENOL) 325 mg tablet Take 650 mg by mouth every 4 hours as needed. - aluminum-magnesium hydroxide-simethicone (MAALOX,MYLANTA,MAG-AL PLUS) 200-200-20 mg/5 mL suspension Take 30 mL by mouth as needed. - bisacodyl (DULCOLAX) 10 mg supp 10 mg by RECTAL route once daily as needed for constipation. Problem List As Of Date 05/30/2024 Noted Resolved Essential hypertension, benign [I10] Lumbago [M54.50] 12/30/2005 Symptomatic menopausal or female climacteric st*12/30/2005 Anxiety [F41.9] (more content not included)... Normal [facility] Comprehensive metabolic 2000 panelon 05-30-2024 Albumin [Mass/Vol] 3.9 g/dL Normal 3.9-4.[address] [facility] Comment on above: Order Comment: Speci men Type: BLOOD SPECIMENOrdering Facility: [facility] Address: [address] [place] [address] Performed By: #### 1 9123-9, 66226-5, LIPNF ####[facility] LABCLIA [id number] [place] [address] [place] ALP [Catalytic activity/Vol] 151 U/L High 34-123 [facility] Comment on above: Order Comment: Speci men Type: BLOOD SPECIMENOrdering Facility: [facility] Address: [address] [place] [address] Performed By: #### 1 9123-9, 84648-7, LIPNF ####[facility] LABCLIA [id number] [place] [address] [place] ALT [Catalytic activity/Vol] 6 U/L Low 7-38 [facility] Comment on above: Order Comment: Speci men Type: BLOOD SPECIMENOrdering Facility: [facility] Address: [address] [place] [address] Performed By: #### 1 9123-9, 25461-8, LIPNF ####[facility] LABCLIA [id number] [place] [address] [place] Anion gap [Moles/Vol] 10 mmol/L Normal 8-15 [facility] Comment on above: Order Comment: Speci men Type: BLOOD SPECIMENOrdering Facility: [facility] Address: [address] [place] [address] Performed By: #### 1 9123-9, 02000-0, LIPNF ####[facility] LABCLIA [id number] [place] [address] [place] AST [Catalytic activity/Vol] 15 U/L Normal 13-35 [facility] Comment on above: Order Comment: Speci men Type: BLOOD SPECIMENOrdering Facility: [facility] Address: [address] [place] [address] Performed By: #### 1 9123-9, 24702-1, LIPNF ####[facility] LABCLIA [id number] [place] [address] [place] Bilirubin [Mass/Vol] 0.2 mg/dL Normal 0.2-1.3 [facility] Comment on above: Order Comment: Speci men Type: BLOOD SPECIMENOrdering Facility: [facility] Address: [address] [place] [address] Performed By: #### 1 9123-9, 35695-1, LIPNF ####[facility] LABCLIA [id number] [place] [address] [place] Calcium [Mass/Vol] 9.9 mg/dL Normal 8.5-10.[address] [facility] Comment on above: Order Comment: Speci men Type: BLOOD SPECIMENOrdering Facility: [facility] Address: [address] [place] [address] Performed By: #### 1 9123-9, 32581-1, LIPNF ####[facility] LABCLIA [id number] [place] [address] [place] Chloride [Moles/Vol] 102 mmol/L Normal 98-107 [facility] Comment on above: Order Comment: Speci men Type: BLOOD SPECIMENOrdering Facility: [facility] Address: [address] [place] [address] Performed By: #### 1 9123-9, 60347-2, LIPNF ####[facility] LABIA [id number] [place] [address] [place] CO2 [Moles/Vol] 28 mmol/L Normal 22-30 [facility] Comment on above: Order Comment: Speci men Type: BLOOD SPECIMENOrdering Facility: [facility] Address: [address] [place] [address] Performed By: #### 1 9123-9, 75018-4, LIPNF ####[facility] LABIA [id number] [place] [id number] [place] Creatinine [Mass/Vol] 0.92 mg/dL Normal 0.58-0.96 [facility] Comment on above: Order Comment: Speci men Type: BLOOD SPECIMENOrdering Facility: [facility] Address: [address] [place] [address] Performed By: #### 1 9123-9, 07587-5, LIPNF ####[facility] LABCLIA [id number] [place] [address] [place] Creatinine and Glomerular filtration rate.predicted panel (S/P/Bld) 68 mL/min/1.73m??? Normal >=60 [facility] Comment on above: Order Comment: Cesar piper Type: BLOOD SPECIMENOrdering Facility: [facility] Address: [address] [place] [address] Result Comment: Sweta mated Glomerular Filtration Rate (eGFR) is calculated using the 2020 CKD-EPI creatinine equation. This equation utilizes serum creatinine, sex, and age as parameters. The creatinine assay has traceable calibration to isotope dilution-mass spectrometry. Refer to KDIGO guidelines for clinical interpretation. In patients with unstable renal function, e.g. those with acute kidney injury, the eGFR may not accurately reflect actual GFR. Performed By: #### 1 9123-9, 50809-0, LIPNF ####[facility] LABCLIA [id number] [place] [address] [place] Glucose [Mass/Vol] 85 mg/dL Normal 74-[address] [facility] Comment on above: Order Comment: Cesar piper Type: BLOOD SPECIMENOrdering Facility: [facility] Address: [address] [place] [address] Result Comment: The [place] Diabetes Association (ADA) provides guidance for cutoff values for fasting glucose and random glucose. The ADA defines fasting as no caloric intake for at least 8 hours. Fasting plasma glucose results between 100 to 125 mg/dL indicate increased risk for diabetes (prediabetes). Fasting plasma glucose results greater than or equal to 126 mg/dL meet the criteria for diagnosis of diabetes. In the absence of unequivocal hyperglycemia, results should be confirmed by repeat testing. In a patient with classic symptoms of hyperglycemia or hyperglycemic crisis, random plasma glucose results greater than or equal to 200 mg/dL meet the criteria for diagnosis of diabetes. Reference: Standards of Medical Care in Diabetes 2016, [place] Diabetes Association. Diabetes Care. 2016.39(Suppl 1). Performed By: #### 1 9123-9, 85809-6, LIPNF ####[facility] LABCLIA [id number] [place] [address] [place] Potassium [Moles/Vol] 4.5 mmol/L Normal 3.7-5.1 [facility] Comment on above: Order Comment: Speci men Type: BLOOD SPECIMENOrdering Facility: [facility] Address: [address] [place] [address] Performed By: #### 1 9123-9, 07519-1, LIPNF ####[facility] LABCLIA [id number] [place] [address] [place] Protein [Mass/Vol] 7.0 g/dL Normal 6.3-8.[address] [facility] Comment on above: Order Comment: Speci men Type: BLOOD SPECIMENOrdering Facility: [facility] Address: [address] [place] [address] Performed By: #### 1 9123-9, , LIPNF ####[facility] LABCLIA [id number] [place] [address] [place] Sodium [Moles/Vol] 140 mmol/L Normal 136-[address] [facility] Comment on above: Order Comment: Speci men Type: BLOOD SPECIMENOrdering Facility: [facility] Address: [address] [place] [address] Performed By: #### 1 9123-9, 28500-1, LIPNF ####[facility] LABCLIA [id number] [place] [address] [place] Urea nitrogen [Mass/Vol] 16 mg/dL Normal 7-21 [facility] Comment on above: Order Comment: Speci men Type: BLOOD SPECIMENOrdering Facility: [facility] Address: [address] [place] [address] Performed By: #### 1 9123-9, 33088-5, LIPNF ####[facility] LABCLIA [id number] [place] [id number] [place] HbA1c (Bld)on 05-30-2024 Average glucose Estimated from glycated hemoglobin (Bld) [Mass/Vol] 111 mg/dL Normal [facility] Comment on above: Order Comment: Cesar piper Type: BLOOD SPECIMENOrdering Facility: [facility] Address: [address] [place] [address] Result Comment: eAG: (Estimated average glucose) is a calculated value from HgbA1c and is senior outside sales representative of the average blood glucose level in the last 2-3 month period. Performed By: #### 5 5454-3 ####[facility] LABCLIA [id number] [place] [address] [place] HbA1c (Bld) [Mass fraction] 5.5 % Normal 4.3-5.6 [facility] Comment on above: Order Comment: Cesar piper Type: BLOOD SPECIMENOrdering Facility: [facility] Address: [address] [place] [address] Result Comment: [place] Diabetes Association guidelines indicate that patients with HgbA1c in the range 5.7-6.4% are at increased risk for development of diabetes, and intervention by lifestyle modification may be beneficial. HgbA1c greater or equal to 6.5% is considered diagnostic of diabetes. Performed By: #### 5 5454-3 ####[facility] LABCLIA [id number] [place] [address] [place] LIPID PANEL, NONFASTINGon Cholesterol [Mass/Vol] 206 mg/dL High <200 [facility] Comment on above: Order Comment: Cesar piper Type: BLOOD SPECIMENOrdering Facility: [facility] Address: [address] [place] [address] Result Comment: <200 mg/dL, Desirable 200-239 mg/dL, Borderline high >239 mg/dL, High Performed By: #### 1 9123-9, 59174-1, LIPNF ####[facility] LABCLIA [id number] [place] [address] [place] HDL CHOLESTEROL, NF 33 mg/dL Low >39 [facility] Comment on above: Order Comment: Speci men Type: BLOOD SPECIMENOrdering Facility: [facility] Address: [address] [place] [address] Result Comment: 40-5 9 mg/dL, Acceptable >59 mg/dL, High: Negative risk factor for coronary heart disease <40 mg/dL, Low: Positive risk factor for coronary heart disease Performed By: #### 1 9123-9, 40309-1, LIPNF ####[facility] LABCLIA [id number] [address] OF [facility] LDL CHOLESTEROL, NF 141 mg/dL High <100 [facility] Comment on above: Order Comment: Holachristiano piper Type: BLOOD SPECIMENOrdering Facility: [facility] Address: [address] [place] [address] Result Comment: <100 mg/dL, Optimal 100-129 mg/dL, Near optimal/above optimal 130-159 mg/dL, Borderline high 160-189 mg/dL, High >189 mg/dL, Very high Secondary prevention optimal LDL Cholesterol levels are recommended to be < 70 mg/dL Performed By: #### 1 9123-9, 93103-3, LIPNF ####[facility] LABCLIA [id number] [address] OF [facility] LDL/HDL RATIO, NF 4.27 mg/dL High <2.54 [facility] Comment on above: Order Comment: Cesar piper Type: BLOOD SPECIMENOrdering Facility: [facility] Address: [address] [place] [address] Result Comment: Refe rence: 1. National Cholesterol Education Program ATP III Guideline At-A-Glance Quick Desk Reference: National Heart, Lung, and Blood [place]. National Institutes of Health. 2001: NIH Publication No. 01-3305. 2. An International Atherosclerosis Society position paper: global recommendations for the management of dyslipidemia: executive summary, Atherosclerosis. 2014: 232(2):410-413. Performed By: #### 1 9123-9, 10570-6, LIPNF ####[facility] LABCLIA [id number] [place] [address] [place] NON HDL CHOL, NF 173 mg/dL High <130 [facility] Comment on above: Order Comment: Speci men Type: BLOOD SPECIMENOrdering Facility: [facility] Address: [address] [place] [address] Result Comment: <130 mg/dL, Optimal 130-159 mg/dL, Near optimal/above optimal 160-189 mg/dL, Borderline high 190-219 mg/dL, High >219 mg/dL, Very high Secondary prevention optimal non HDL Cholesterol levels are recommended to be <100 mg/dL Performed By: #### 1 9123-9, 46678-7, LIPNF ####[facility] LABCLIA [id number] [place] [address] [place] T CHOL/HDL RATIO NF 6.24 mg/dL High <5.10 [facility] Comment on above: Order Comment: Speci men Type: BLOOD SPECIMENOrdering Facility: [facility] Address: [address] [place] [address] Performed By: #### 1 9123-9, 97984-9, LIPNF ####[facility] LABCLIA [id number] [place] [address] [place] TRIGLYCERIDES, NF 158 mg/dL High <150 [facility] Comment on above: Order Comment: Speci men Type: BLOOD SPECIMENOrdering Facility: [facility] Address: [address] [place] [address] Result Comment: <150 mg/dL, Normal 150-199 mg/dL, Borderline high 200-499 mg/dL, High >499 mg/dL, Very high Performed By: #### 1 9123-9, 87235-1, LIPNF ####[facility] LABCLIA [id number] [place] [address] [place] VLDL CHOLESTEROL, NF 32 mg/dL High <30 [facility] Comment on above: Order Comment: Speci men Type: BLOOD SPECIMENOrdering Facility: [facility] Address: [address] [place] [id number] Performed By: #### 1 9123-9, 09162-7, LIPNF ####[facility] LABCLIA [id number] [place] [id number] [place] Magnesium SerPl-mCncon 05-30 Magnesium [Mass/Vol] 2.1 mg/dL Normal 1.7-2.3 [facility] Comment on above: Order Comment: Speci men Type: BLOOD SPECIMENOrdering Facility: [facility] Address: [address] [place] [address] Performed By: #### 1 9123-9, 63427-4, LIPNF ####[facility] LABCLIA [id number] [address] [place] CNPNon 05-24-2024 CNPN Telephone (INTMWS) ----- MARCIA MASCORRO ([id number]) 1955 F [facility] Date Time Provider Department 05/24/24 GABRIEL GALVAN INTWS During your visit today, we recorded the following information about you: Linh Villalobos RN 05/24/2024 2:43 PM Signed Isaak from [facility] and states that patient is being admitted there from [facility]. Isaak is faxing over medication list from [facility] and is asking if provider can send patient's prescriptions to [facility]? Please review and advise, WENDY Horowitz Liza D, MD 05/24/2024 9:14 PM Signed Has follow up with Nora this month Okayed meds with refills for 6 months except for prn meds since not sure how often needs to take and only 14 days worth of lorazepam since prior RX was for prn use, and at [facility] they were giving it to her TID routinely. Can determine with Nora if needs to be kept on TID routinely. Not sure if needed Tylenol RX and if all three as on the med list from [facility] for prn use. The following approved medication requests have been transmitted electronically. Requested Prescriptions Signed Prescriptions Disp Refills senna-docusate (SENNA PLUS) 8.6-50 mg per tablet 60 tablet 5 Sig: Take 1 tablet by mouth every morning AND 1 tablet daily at bedtime. Authorizing Provider: GABRIEL GALVAN tiotropium bromide (SPIRIVA RESPIMAT) 2.5 mcg/actuation inhaler 1 Each 5 Sig: Inhale 2 Puffs as instructed once daily. Inhale two puffs once daily. Authorizing Provider: GABRIEL GALVAN sucralfate (CARAFATE) 1 gram tablet 56 tablet 5 Sig: Take 1 tablet by mouth before meals and at bedtime. Authorizing Provider: GABRIEL GALVAN sodium phosphate-sodium bisphosphate (FLEET) enema 1 Each 2 Si mL by RECTAL route as needed for constipation. Authorizing Provider: GABRIEL GALVAN potassium chloride ER (KLOR-CON) 20 mEq tablet 30 tablet 5 Sig: Take 1 tablet by mouth once daily. Authorizing Provider: GABRIEL GALVAN pantoprazole DR (PROTONIX) 40 mg tablet 60 tablet 5 Sig: Take 1 tablet by mouth two times a day. Authorizing Provider: GABRIEL GALVAN ondansetron (ZOFRAN) 4 mg tablet 30 tablet 1 Sig: Take 1 tablet by mouth every 8 hours as needed for nausea/vomiting. Authorizing Provider: GABRIEL GALVAN magnesium hydroxide (MILK OF MAGNESIA) 400 mg/5 mL suspension 118 mL 3 Sig: Take 30 mL by mouth once daily as needed for constipation. Authorizing Provider: GABRIEL GALVAN LORazepam (ATIVAN) 1 mg tablet 42 tablet 0 Sig: Take 1 tablet by mouth three times a day for 14 days. Authorizing Provider: GABRIEL GALVAN lisinopril (ZESTRIL) 5 mg tablet 30 tablet 5 Sig: Take 1 tablet by mouth once daily. Authorizing Provider: GABRIEL GALVAN gabapentin (NEURONTIN) 400 mg capsule 90 capsule 5 Sig: Take 1 capsule by mouth three times a day for 180 days. Authorizing Provider: GABRIEL GALVAN furosemide (LASIX) 20 mg tablet 60 tablet 5 Sig: Take 1 tablet by mouth two times a day. Authorizing Provider: GABRIEL GALVAN famotidine (PEPCID) 40 mg tablet 30 tablet 5 Sig: Take 1 tablet by mouth once daily. Authorizing Provider: GABRIEL GALVAN DULoxetine (CYMBALTA) 30 mg capsule 30 capsule 5 Sig: Take 1 capsule by mouth once daily. Authorizing Provider: GABRIEL GALVAN docusate sodium (COLACE) 100 mg capsule 60 capsule 5 Sig: Take 1 capsule by mouth two times a day as needed for constipation. Authorizing Provider: GABRIEL GALVAN dicyclomine (BENTYL) 10 mg capsule 60 capsule 5 Sig: Take 2 capsules by mouth two times a day. Authorizing Provider: GABRIEL GALVAN clopidogrel (PLAVIX) 75 mg tablet 30 tablet 5 Sig: Take 1 tablet by mouth once daily. Authorizing Provider: GABRIEL GALVAN Cholecalciferol, Vitamin D3, 125 mcg (5,000 unit) cap 30 capsule 5 Sig: Take 1 capsule by mouth once daily. Authorizing Provider: GABRIEL GALVAN carvedilol (COREG) 6.25 mg tablet 60 tablet 5 Sig: Take 1 tablet by mouth two times a day with meals. Authorizing Provider: GABRIEL GALVAN atorvastatin (LIPITOR) 40 mg tablet 30 tablet 5 Sig: Take 1 tablet by mouth daily at bedtime. Authorizing Provider: GABRIEL GALVAN benzonatate (TESSALON PERLES) 100 mg capsule 30 capsule 5 Sig: Take 1 capsule by mouth three times a day as needed for cough. Authorizing Provider: GABRIEL GALVAN albuterol-budesonide HFA (AIRSUPRA) 90-80 mcg/actuation inhaler 1 Each 5 Sig: Inhale 2 Puffs as instructed every 2 hours as needed for wheezing/shortness of breath. Do not take more than 12 inhalations in a 24 hour period. Authorizing Provider: GABRIEL GALVAN MD Allergies As of Date: 05/24/2024 Noted Allergy Reaction CONTRAST DYE (IODINE) 12/20/2023 10 - Anaphylaxis Date Reviewed: 04/25/2024 Reviewed by: Alisa Jones RN - Fully Assessed Reason for Visit: Refill Request [94] Primary Visit Diagnosis (more content not included)... Normal [facility] Amylaseon 05-10-2024 KIM 28 U/L Normal 25-115 [facility] Comment on above: Order Comment: 503.1 Performed By: #### L 100.0100, L500.4050, L501.2400, L501.2450 ####[facility] [address] [place], [address] CBC W/Diff, Automatedon Absolute Lymph 2.31 X10 3/uL Normal 0.83-4.51 [facility] Comment on above: Order Comment: 503.1 Performed By: #### L 100.0100, L500.4050, L501.2400, L501.2450 ####[facility] [address] [place], [address] Absolute Neut 1.6 X10 3/uL Low 2.0-7.7 [facility] Comment on above: Order Comment: 503.1 Performed By: #### L 100.0100, L500.4050, L501.2400, L501.2450 ####[facility] [address] [place], [address] Basophils/100 WBC (Bld) 0.9 % Normal 0-1 [facility] Comment on above: Order Comment: 503.1 Performed By: #### L 100.0100, L500.4050, L501.2400, L501.2450 ####[facility] [address] [place], [address] Eosinophils/100 WBC (Bld) 6.3 % High 0-5 [facility] Comment on above: Order Comment: 503.1 Performed By: #### L 100.0100, L500.4050, L501.2400, L501.2450 ####[facility] [address] [place], [address] Erythrocyte distribution width (RBC) [Ratio] 13.0 % Normal 11.6-14.6 [facility] Comment on above: Order Comment: 503.1 Performed By: #### L 100.0100, L500.4050, L501.2400, L501.2450 ####[facility] [address] [place], [address] Hematocrit (Bld) [Volume fraction] 37.5 % Normal 37-47 [facility] Comment on above: Order Comment: 503.1 Performed By: #### L 100.0100, L500.4050, L501.2400, L501.2450 ####[facility] [address] [place], [address] Hemoglobin (Bld) [Mass/Vol] 11.7 g/dL Low 12.0-15.0 [facility] Comment on above: Order Comment: 503.1 Performed By: #### L 100.0100, L500.4050, L501.2400, L501.2450 ####[facility] [address] [place], [address] IG% 0.200 Normal 0.0-0.9 [facility] Comment on above: Order Comment: 503.1 Result Comment: IG% - Immature Granulocytes (promyelocytes, myelocytes and metamyelocytes) > 1% indicates that a LEFT SHIFT is Present. Performed By: #### L 100.0100, L500.4050, L501.2400, L501.2450 ####[facility] [address] [place], [address] Lymphocytes/100 WBC (Bld) 49.8 % High 19-41 [facility] Comment on above: Order Comment: 503.1 Performed By: #### L 100.0100, L500.4050, L501.2400, L501.2450 ####[facility] [address] [place], [address] MCH (RBC) [Entitic mass] 29.5 pg Normal 27.0-32.0 [facility] Comment on above: Order Comment: 503.1 Performed By: #### L 100.0100, L500.4050, L501.2400, L501.2450 ####[facility] [address] [place], [address] MCHC (RBC) [Mass/Vol] 31.2 g/dL Low 32-36 [facility] Comment on above: Order Comment: 503.1 Performed By: #### L 100.0100, L500.4050, L501.2400, L501.2450 ####[facility] [address] [place], [address] MCV (RBC) [Entitic vol] 94.5 fL Normal 81-99 [facility] Comment on above: Order Comment: 503.1 Performed By: #### L 100.0100, L500.4050, L501.2400, L501.2450 ####[facility] [address] [place], [address] Monocytes/100 WBC (Bld) 8.0 % Normal 0-10 [facility] Comment on above: Order Comment: 503.1 Performed By: #### L 100.0100, L500.4050, L501.2400, L501.2450 ####[facility] [address] [place], [address] Neutrophils/100 WBC (Bld) 34.8 % Low 47-70 [facility] Comment on above: Order Comment: 503.1 Performed By: #### L 100.0100, L500.4050, L501.2400, L501.2450 ####[facility] [address] [place], [address] Nucleated RBC (Bld) [#/Vol] 0 10*3/uL Normal 0-5 [facility] Comment on above: Order Comment: 503.1 Performed By: #### L 100.0100, L500.4050, L501.2400, L501.2450 ####[facility] [address] [place], [address] Platelet mean volume (Bld) [Entitic vol] 9.6 fL Normal 6.2-12.0 [facility] Comment on above: Order Comment: 503.1 Performed By: #### L 100.0100, L500.4050, L501.2400, L501.2450 ####[facility] [address] [place], [address] Platelets (Bld) [#/Vol] 183 10*3/uL Normal 150-450 [facility] Comment on above: Order Comment: 503.1 Performed By: #### L 100.0100, L500.4050, L501.2400, L501.2450 ####[facility] [address] [place], [address] RBC (Bld) [#/Vol] 3.97 10*6/uL Low 4.2-5.4 [facility] Comment on above: Order Comment: 503.1 Performed By: #### L 100.0100, L500.4050, L501.2400, L501.2450 ####[facility] [address] [place], [address] RDW SD 45.1 fl High 35.1-43.9 [facility] Comment on above: Order Comment: 503.1 Performed By: #### L 100.0100, L500.4050, L501.2400, L501.2450 ####[facility] [address] [place], [address] WBC (Bld) [#/Vol] 4.6 10*3/uL Normal 4.4-11.0 [facility] Comment on above: Order Comment: 503.1 Performed By: #### L 100.0100, L500.4050, L501.2400, L501.2450 ####[facility] [address] [place], [address] Comprehensive Metabolic Prof ilon 05-10-2024 Albumin [Mass/Vol] 2.6 g/dL Low 3.2-5.0 [facility] Comment on above: Order Comment: 503.1 Performed By: #### L 100.0100, L500.4050, L501.2400, L501.2450 ####[facility] [address] [place], [address] Albumin/Globulin [Mass ratio] 0.8 {ratio} Low 0.9-2.4 [facility] Comment on above: Order Comment: 503.1 Performed By: #### L 100.0100, L500.4050, L501.2400, L501.2450 ####[facility] [address] [place], [address] ALK P 135 U/L High 45-117 [facility] Comment on above: Order Comment: 503.1 Performed By: #### L 100.0100, L500.4050, L501.2400, L501.2450 ####[facility] [address] [place], [address] ALT [Catalytic activity/Vol] 10 U/L Low 13-56 [facility] Comment on above: Order Comment: 503.1 Performed By: #### L 100.0100, L500.4050, L501.2400, L501.2450 ####[facility] [address] [place], [address] AST [Catalytic activity/Vol] 11 U/L Low 15-37 [facility] Comment on above: Order Comment: 503.1 Performed By: #### L 100.0100, L500.4050, L501.2400, L501.2450 ####[facility] [address] [place], [address] Bilirubin [Mass/Vol] 0.30 mg/dL Normal 0.20-1.00 [facility] Comment on above: Order Comment: 503.1 Result Comment: For patients on eltrombopag therapy, use of Dimension [place] TBIL is not recommended. Performed By: #### L 100.0100, L500.4050, L501.2400, L501.2450 ####[facility] [address] [place], [address] BUN/CRE 14.0 RATIO Normal 10-20 [facility] Comment on above: Order Comment: 503.1 Performed By: #### L 100.0100, L500.4050, L501.2400, L501.2450 ####[facility] [address] [place], [address] CA,Total 9.4 mg/dL Normal 8.5-10.1 [facility] Comment on above: Order Comment: 503.1 Performed By: #### L 100.0100, L500.4050, L501.2400, L501.2450 ####[facility] [address] [place], [address] Chloride [Moles/Vol] 106 mmol/L Normal 98-107 [facility] Comment on above: Order Comment: 503.1 Performed By: #### L 100.0100, L500.4050, L501.2400, L501.2450 ####[facility] [address] [place], [address] CO2 [Moles/Vol] 34.0 mmol/L High 21.0-32.0 [facility] Comment on above: Order Comment: 503.1 Performed By: #### L 100.0100, L500.4050, L501.2400, L501.2450 ####[facility] [address] [place], [address] Creatinine [Mass/Vol] 0.86 mg/dL Normal 0.55-1.02 [facility] Comment on above: Order Comment: 503.1 Result Comment: The validity of the calculated GFR GFRAA in patients over 70 years has not been determined. Clinical correlation is essential. Performed By: #### L 100.0100, L500.4050, L501.2400, L501.2450 ####[facility] [address] [place], [address] EST GFR - AA 85 mL/min Normal >60 [facility] Comment on above: Order Comment: 503.1 Result Comment: Afri can [place] GFR Calc Performed By: #### L 100.0100, L500.4050, L501.2400, L501.2450 ####[facility] [address] [place], [address] GAP 2 Low 5-15 [facility] Comment on above: Order Comment: 503.1 Performed By: #### L 100.0100, L500.4050, L501.2400, L501.2450 ####[facility] [address] [place], [address] GFR/1.73 sq M.predicted among non-blacks MDRD (S/P/Bld) [Vol rate/Area] 70 mL/min/{1.73_m2} Normal >60 [facility] Comment on above: Order Comment: 503.1 Result Comment: Non- GFR Calc Performed By: #### L 100.0100, L500.4050, L501.2400, L501.2450 ####[facility] [address] [place], [address] Globulin (S) [Mass/Vol] 3.2 g/dL Normal 2.2-4.2 [facility] Comment on above: Order Comment: 503.1 Performed By: #### L 100.0100, L500.4050, L501.2400, L501.2450 ####[facility] [address] [place], [address] Glucose [Mass/Vol] 93 mg/dL Normal 74-106 [facility] Comment on above: Order Comment: 503.1 Performed By: #### L 100.0100, L500.4050, L501.2400, L501.2450 ####[facility] [address] [place], [address] Potassium [Moles/Vol] 3.8 mmol/L Normal 3.5-5.1 [facility] Comment on above: Order Comment: 503.1 Performed By: #### L 100.0100, L500.4050, L501.2400, L501.2450 ####[facility] [address] [place], [address] Sodium [Moles/Vol] 142 mmol/L Normal 136-145 [facility] Comment on above: Order Comment: 503.1 Performed By: #### L 100.0100, L500.4050, L501.2400, L501.2450 ####[facility] [address] [place], [address] T PROT 5.8 g/dL Low 6.4-8.2 [facility] Comment on above: Order Comment: 503.1 Performed By: #### L 100.0100, L500.4050, L501.2400, L501.2450 ####[facility] [address] [place], [address] Urea nitrogen [Mass/Vol] 12 mg/dL Normal 7-18 [facility] Comment on above: Order Comment: 503.1 Performed By: #### L 100.0100, L500.4050, L501.2400, L501.2450 ####[facility] [address] [place], [place], [address] Lipaseon 05-10-2024 Lipase [Catalytic activity/Vol] 14 U/L Normal 13-75 [facility] Comment on above: Order Comment: 503.1 Result Comment: Kelvin duque note: LIPASE revised reference range effective 22. New Lipase methodology. Expected to produce lower values than the previous assay method. NEW Reference Range: 13 - 75 U/L Performed By: #### L 100.0100, L500.4050, L501.2400, L501.2450 ####[facility] [address] [place], [address] CT Abdomen and Pelvis WO con traston 03-18-2024 IMPRESSION: No acute finding. Small RIGHT perihepatic density consistent with minimal residual complex collection status post abscess drainage. Extrahepatic biliary dilatation is stable in comparison to prior studies. Stable bilobed abdominal aortic aneurysm. Colonic diverticulosis. Nonobstructing nephrolithiasis. Large hiatal hernia. Service Consultant: ANNE Transcribe Date/Time: Mar 18 2024 3:26P Dictated by : ESTEFANI STARKS MD This examination was interpreted and the report reviewed and electronically signed by: ESTEFANI STARKS MD on Mar 18 2024 3:49PM [facility] DIVISION OF RADIOLOGY * * *Final Report* * * DATE OF EXAM: Mar 18 2024 2:51PM [facility] 0531 - CT ABD/PEL WO IVCON / PROCEDURE REASON: Generalized abdominal pain * * * * Physician Interpretation * * * * EXAMINATION: CT ABDOMEN AND PELVIS WITHOUT IV CONTRAST CLINICAL HISTORY: Generalized abdominal pain. History of LEFT upper cholecystectomy and abdominal abscess TECHNIQUE: Non-IV contrast imaging of the abdomen and pelvis was performed using standard technique, scanning from just above the dome of the diaphragm to the symphysis pubis. Unenhanced imaging is limited for the evaluation of some intra-abdominal and pelvic pathology. MQ: CTAPWO_3 Contrast: IV: None CT Radiation dose: Integrated Dose-length product (DLP) for this visit = 714 mGy*cm. CT Dose Reduction Employed: Automated exposure control(AEC) and iterative recon COMPARISON: 01/20/2024. RESULT: Abdomen / Pelvis: Liver: Unremarkable. Perihepatic density described below. Biliary: S/p cholecystectomy. Extrahepatic biliary dilatation, 12 mm in diameter. Spleen: No splenomegaly. Pancreas: Unremarkable. Adrenals: No mass. Kidneys: 3 mm posterior mid RIGHT renal calculus. There are 2 mid LEFT renal calculi, each about 4 mm in diameter. No hydronephrosis. GI Tract: No bowel dilation. Appendix not visualized. There is colonic diverticulosis. No definite wall thickening. Lymph Nodes: No lymphadenopathy. Mesentery/peritoneum: 9 x 6 x 14 mm density along anteromedial RIGHT hepatic lobe margin at site of previous abscess (17:35). Retroperitoneum: No mass. Vasculature: Atherosclerotic calcification. Bilobed infrarenal abdominal aortic aneurysm more superior component 3.1 x 3.5 cm in maximal diameter and inferior component 3.8 x 3.4 cm. Pelvis: No mass or ascites. Status post hysterectomy. Bones/Soft Tissues: No acute abnormality. Lower thorax: Large hiatal hernia. Focal subpleural opacity posterior lateral RIGHT lung base suggestive of scarring or atelectasis. Localizer images: No additional findings. DIVISION OF RADIOLOGY Provider, [facility] - 03/18/2024 * * *Final Report* * * DATE OF EXAM: Mar 18 2024 2:51PM [facility] 0531 - CT ABD/PEL WO IVCON / PROCEDURE REASON: Generalized abdominal pain * * * * Physician Interpretation * * * * EXAMINATION: CT ABDOMEN AND PELVIS WITHOUT IV CONTRAST CLINICAL HISTORY: Generalized abdominal pain. History of LEFT upper cholecystectomy and abdominal abscess TECHNIQUE: Non-IV contrast imaging of the abdomen and pelvis was performed using standard technique, scanning from just above the dome of the diaphragm to the symphysis pubis. Unenhanced imaging is limited for the evaluation of some intra-abdominal and pelvic pathology. MQ: CTAPWO_3 Contrast: IV: None CT Radiation dose: Integrated Dose-length product (DLP) for this visit = 714 mGy*cm. CT Dose Reduction Employed: Automated exposure control(AEC) and iterative recon COMPARISON: 01/20/2024. RESULT: Abdomen / Pelvis: Liver: Unremarkable. Perihepatic density described below. Biliary: S/p cholecystectomy. Extrahepatic biliary dilatation, 12 mm in diameter. Spleen: No splenomegaly. Pancreas: Unremarkable. Adrenals: No mass. Kidneys: 3 mm posterior mid RIGHT renal calculus. There are 2 mid LEFT renal calculi, each about 4 mm in diameter. No hydronephrosis. GI Tract: No bowel dilation. Appendix not visualized. There is colonic diverticulosis. No definite wall thickening. Lymph Nodes: No lymphadenopathy. Mesentery/peritoneum: 9 x 6 x 14 mm density along anteromedial RIGHT hepatic lobe margin at site of previous abscess (17:35). Retroperitoneum: No mass. Vasculature: Atherosclerotic calcification. Bilobed infrarenal abdominal aortic aneurysm more superior component 3.1 x 3.5 cm in maximal diameter and inferior component 3.8 x 3.4 cm. Pelvis: No mass or ascites. Status post hysterectomy. Bones/Soft Tissues: No acute abnormality. Lower thorax: Large hiatal hernia. Focal subpleural opacity posterior lateral RIGHT lung base suggestive of scarring or atelectasis. Localizer images: No additional findings. IMPRESSION IMPRESSION: No acute finding. Small RIGHT perihepatic density consistent with minimal residual complex collection status post abscess drainage. Extrahepatic biliary dilatation is stable in comparison to prior studies. Stable bilobed abdominal aortic aneurysm. Colonic diverticulosis. Nonobstructing nephrolithiasis. Large hiatal hernia. [facility] Transcribe Date/Time: Mar 18 2024 3:26P Dictated by : ESTEFANI STARKS MD This examination was interpreted and the report reviewed and electronically signed by: ESTEFANI STARKS MD on Mar 18 2024 3:49PM [facility] Radiology Study observation (narrative) [facility] CT Abdomen and Pelvis WO con trastOrdered By: Ccf Provider on 03-18-2024 [facility] CBC W Auto Differential pane l (Bld)on 03-14-2024 Basophils (Bld) [#/Vol] 0.06 10*3/uL [facility] Basophils/100 WBC (Bld) 1.0 % C [facility] Differential cell count method Nom (Bld) Auto [facility] Eosinophils (Bld) [#/Vol] 0.38 10*3/uL [facility] Eosinophils/100 WBC (Bld) 6.2 % [facility] Erythrocyte distribution width (RBC) [Ratio] 13.1 % 11.5 - 15.0 % [facility] Hematocrit (Bld) [Volume fraction] 39.1 % 36.0 - 46.0 % [facility] Hemoglobin (Bld) [Mass/Vol] 12.3 g/dL 11.5 - 15.5 g/dL [facility] Immature granulocytes (Bld) [#/Vol] [facility] Immature granulocytes/100 WBC (Bld) 0.2 % [facility] Lymphocytes (Bld) [#/Vol] 2.36 10*3/uL [facility] Lymphocytes/100 WBC (Bld) 38.5 % [facility] MCH (RBC) [Entitic mass] 30.0 pg 26. 0 - 34.0 pg [facility] MCHC (RBC) [Mass/Vol] 31.5 g/dL 30.5 - 36.0 g/dL [facility] MCV (RBC) [Entitic vol] 95.4 fL 80.0 - 100.0 fL [facility] Monocytes (Bld) [#/Vol] 0.39 10*3/uL [facility] Monocytes/100 WBC (Bld) 6.4 % C [facility] Neutrophils (Bld) [#/Vol] 2.93 10*3/uL [facility] Neutrophils/100 WBC (Bld) 47.7 % [facility] Nucleated RBC (Bld) [#/Vol] [facility] Nucleated RBC/100 WBC (Bld) [Ratio] 0.0 % /100 WBC [facility] Platelet mean volume (Bld) [Entitic vol] 9.9 fL 9.0 - 12.7 fL [facility] Platelets (Bld) [#/Vol] 266 10*3/uL [facility] RBC (Bld) [#/Vol] 4.10 10*6/uL 3.90 - 5.20 m/uL [facility] WBC (Bld) [#/Vol] 6.13 10*3/uL [facility] L501.4020on 03-14-2024 TROPONIN-I HS 14 pg/mL Normal 3.0-54.0 [facility] Comment on above: Order Comment: 503-1 1 Result Comment: Kelvin duque Note: New Test Units and Gender Specific Reference Ranges. For more information see Policy Stat Procedure [place] High Sensitivity Troponin (TNIH) and attachments. Performed By: #### L 500.2500, L501.5425, L100.0100 #### [facility] [address] [place], [address] CT ABDOMEN WO IVCONon 2023 CT ABDOMEN WO IVCON Normal [facility] Absolute lymphocyte countOrd ered By: Adryan Aguilera on 12-29-2023 Lymphocytes Auto (Unsp spec) [#/Vol] 1.27 10*3/uL 0.83-4.51 [facility] Absolute lymphocyte countOrd ered By: Ara Rehman on 12-29-2023 Lymphocytes Auto (Unsp spec) [#/Vol] 1.51 10*3/uL 0.83-4.51 [facility] Activated partial thrombopla stin time (aPTT) in platelet poor plasma by coagulation aOrdered By: Adryan Aguilera on 12-29-2023 aPTT Coag (PPP) [Time] 35.5 s 24.1-36.2 [facility] Automated lymphocyte count a s percentage of total leukocytesOrdered By: Adryan Aguilera on 12-29-2023 Lymphocytes/100 WBC Auto (Unsp spec) 18.8 % - [facility] Automated lymphocyte count a s percentage of total leukocytesOrdered By: Ara Rehman on 12-29-2023 Lymphocytes/100 WBC Auto (Unsp spec) 22.4 % - [facility] Basophil percentageOrdered B y: Adryan Aguilera on 12-29-2023 Basophils/100 WBC (Bld) 0.9 % 0-1 [facility] Bilirubin [Mass/Vol] 0.30 mg/dL 0.20-1.00 [facility] Comment on above: For patients on eltr ombopag therapy, use of Dimension [place] TBIL is not recommended. Chloride [Moles/Vol] 105 mmol/L 98-107 [facility] Eosinophils/100 WBC (Bld) 4.1 % 0-5 [facility] Glucose [Mass/Vol] 103 mg/dL 74-106 [facility] Comment on above: Fasting Glucose resu lt from 100 to 125 mg/dL suggests IMPAIRED HOMEOSTASIS per A.D.A. criteria. Hemoglobin (Bld) [Mass/Vol] 11.1 g/dL 12.0-15.0 [facility] Monocytes/100 WBC (Bld) 6.4 % 0-10 [facility] Neutrophils (Bld) [#/Vol] 4.7 10*3/uL 2.0-7.7 [facility] Neutrophils/100 WBC (Bld) 69.5 % 47-70 [facility] Potassium [Moles/Vol] 3.8 mmol/L 3.5-5.1 [facility] Protein [Mass/Vol] 7.3 g/dL 6.4-8.2 [facility] Sodium [Moles/Vol] 140 mmol/L 136-145 [facility] WBC (Bld) [#/Vol] 6.8 10*3/uL 4.4-11.0 [facility] Basophil percentage 0-5 SEEN /hpf 0-5 [facility] Basophil percentageOrdered B y: Ara Rehman on 12-29-2023 Basophils/100 WBC (Bld) 0.7 % 0-1 [facility] Chloride [Moles/Vol] 106 mmol/L 98-107 [facility] Cholesterol [Mass/Vol] 147 mg/dL <200 [facility] Comment on above: <200 mg/dL Desirable 200-240 mg/dL Borderline >240 mg/dL High Risk Eosinophils/100 WBC (Bld) 7.0 % 0-5 [facility] Glucose [Mass/Vol] 104 mg/dL 74-106 [facility] Comment on above: Fasting Glucose resu lt from 100 to 125 mg/dL suggests IMPAIRED HOMEOSTASIS per A.D.A. criteria. Hemoglobin (Bld) [Mass/Vol] 11.4 g/dL 12.0-15.0 [facility] Monocytes/100 WBC (Bld) 8.2 % 0-10 [facility] Neutrophils (Bld) [#/Vol] 4.1 10*3/uL 2.0-7.7 [facility] Neutrophils/100 WBC (Bld) 61.3 % 47-70 [facility] Potassium [Moles/Vol] 3.7 mmol/L 3.5-5.1 [facility] Sodium [Moles/Vol] 140 mmol/L 136-145 [facility] Triglyceride [Mass/Vol] 194 mg/dL <199 [facility] Comment on above: The drugs N-Acetylcy steine and Metamizole may falsely depress this assay.Serum Triglycerides Reference Interval Normal <150 mg/dL Borderline high 150 - 199 mg/dL High 200 - 499 mg/dL Very High > or = 500 mg/dL WBC (Bld) [#/Vol] 6.7 10*3/uL 4.4-11.0 [facility] Bilirubin Test strip Ql (U)O rdered By: Adryan Aguilera on 12-29-2023 Bilirubin Ql (U) Negative Negative [facility] Determination of erythrocyte mean corpuscular volume (MCV)Ordered By: Adryna Aguilera on 12-29-2023 MCV (RBC) [Entitic vol] 94.8 fL 81-99 [facility] Determination of erythrocyte mean corpuscular volume (MCV)Ordered By: Ara Rehman on 12-29-2023 MCV (RBC) [Entitic vol] 94.5 fL 81-99 [facility] Erythrocyte distribution wid th ratioOrdered By: Adryan Aguilera on 12-29-2023 Erythrocyte distribution width (RBC) [Ratio] 12.6 % 11.6-14.6 [facility] Erythrocyte distribution wid th ratioOrdered By: Ara Rehman on 12-29-2023 Erythrocyte distribution width (RBC) [Ratio] 12.7 % 11.6-14.6 [facility] Erythrocyte distribution wid th standard deviationOrdered By: Adryan Aguilera on 12-29-2023 Erythrocyte distribution width (RBC) [Entitic vol] 43.4 fL 35.1-43.9 [facility] Erythrocyte distribution wid th standard deviationOrdered By: Ara Rehman on 12-29-2023 Erythrocyte distribution width (RBC) [Entitic vol] 43.1 fL 35.1-43.9 [facility] Hematocrit Auto (Bld) [Volum e fraction]Ordered By: Adryan Aguilera on 12-29-2023 Hematocrit (Bld) [Volume fraction] 34.9 % 37-47 [facility] Hematocrit Auto (Bld) [Volum e fraction]Ordered By: Ara Rehman on 12-29-2023 Hematocrit (Bld) [Volume fraction] 36.3 % 37-47 [facility] Immature granulocytes/100 WB C Auto (Bld)Ordered By: Adryan Aguilera on 12-29-2023 Immature granulocytes/100 WBC (Bld) 0.300 % 0.0-0.9 [facility] Comment on above: IG% - Immature Granu locytes (promyelocytes, myelocytes and metamyelocytes) > 1% indicates that a LEFT SHIFT is Present. Immature granulocytes/100 WB C Auto (Bld)Ordered By: Ara Rehman on 12-29-2023 Immature granulocytes/100 WBC (Bld) 0.400 % 0.0-0.9 [facility] Comment on above: IG% - Immature Granu locytes (promyelocytes, myelocytes and metamyelocytes) > 1% indicates that a LEFT SHIFT is Present. Ketones Test strip Ql (U)Ord ered By: Adryan Aguilera on 12-29-2023 Ketones Ql (U) Negative Negative [facility] - Chemistry and C hemistry - challengeOrdered By: Adryan Aguilera on 12-29-2023 Albumin/Globulin [Mass ratio] 0.5 {ratio} 0.9-2.4 [facility] ALP [Catalytic activity/Vol] 182 U/L 45-117 [facility] ALT [Catalytic activity/Vol] 31 U/L 13-56 [facility] CO2 [Moles/Vol] 31.0 mmol/L 21.0-32.0 [facility] Globulin (S) [Mass/Vol] 4.8 g/dL 2.2-4.2 [facility] Lipase [Catalytic activity/Vol] 11 U/L 13-75 [facility] Comment on above: Please note:LIPASE r evised reference range effective 22. New Lipase methodology. Expected to produce lower values than the previous assay method. NEW Reference Range: 13 - 75 U/L Urea nitrogen/Creatinine [Mass ratio] 9.0 mg/mg 10-20 [facility] - Chemistry and C hemistry - challengeOrdered By: Ara Rehman on 12-29-2023 Cholesterol in HDL [Mass/Vol] 30 mg/dL >40 [facility] Comment on above: The drugs N-Acetylcy steine and Metamizole may falsely depress this assay. Reference Range HDL <40 mg/dL Low HDL Cholesterol HDL >or= 60 mg/dL High HDL Cholesterol Cholesterol in LDL [Mass/Vol] 78 mg/dL 0-130 [facility] CO2 [Moles/Vol] 31.0 mmol/L 21.0-32.0 [facility] Cobalamin (Vitamin B12) [Mass/Vol] 421 pg/mL 211-911 [facility] Magnesium [Mass/Vol] 2.2 mg/dL 1.6-2.6 [facility] Urea nitrogen/Creatinine [Mass ratio] 9.0 mg/mg 10-20 [facility] - CoagulationOrde red By: Adryan Aguilera on 12-29-2023 INR Coag (Bld) [Relative time] 1.1 {INR} [facility] PT Coag (PPP) [Time] 13.7 s 11.7-14.9 [facility] - Hematology and Cell countsOrdered By: Adryan Aguilera on 12-29-2023 MCH (RBC) [Entitic mass] 30.2 pg 27.0-32.0 [facility] MCHC (RBC) [Mass/Vol] 31.8 g/dL 32-36 [facility] Nucleated RBC/100 WBC (Bld) [Ratio] 0 % 0-5 [facility] Platelet mean volume (Bld) [Entitic vol] 8.5 fL 6.2-12.0 [facility] Platelets (Bld) [#/Vol] 362 10*3/uL 150-450 [facility] Laboratory - Hematology and Cell countsOrdered By: Ara Rehman on 12-29-2023 MCH (RBC) [Entitic mass] 29.7 pg 27.0-32.0 [facility] MCHC (RBC) [Mass/Vol] 31.4 g/dL 32-36 [facility] Nucleated RBC/100 WBC (Bld) [Ratio] 0 % 0-5 [facility] Platelet mean volume (Bld) [Entitic vol] 8.6 fL 6.2-12.0 [facility] Platelets (Bld) [#/Vol] 386 10*3/uL 150-450 [facility] Mucus LM Ql (Urine sed)Order ed By: Adryan Aguilera on 12-29-2023 Mucus Ql (Urine sed) 0 SEEN /hpf [facility] Nitrite Test strip Ql (U)Ord ered By: Adryan Aguilera on 12-29-2023 Nitrite Ql (U) Negative Negative [facility] No Panel InformationOrdered By: Adryan Aguilera on 12-29-2023 Estimated Creatinine Clearance Calc 64.33 ml/min [facility] Estimated GFR (MDRD) Amer 71 mL/min >60 [facility] Comment on above: GFR Calc Estimated GFR (MDRD) Non-Af Amer 59 mL/min >60 [facility] Comment on above: Non- GFR Calc Urine RBC 0 SEEN /hpf 0-5 [facility] No Panel InformationOrdered By: Ara Rehman on 12-29-2023 Estimated GFR (MDRD) Amer 71 mL/min >60 [facility] Comment on above: GFR Calc Estimated GFR (MDRD) Non-Af Amer 59 mL/min >60 [facility] Comment on above: Non- GFR Calc Vitamin D 25-Hydroxy 28.6 ng/mL [facility] Comment on above: Vitamin D 25(OH) Sta tus Range Deficiency <20 ng/mL (50nmol/L) Insufficiency 20 - 30 ng/mL (50 - 75 nmol/L) Sufficiency 30 - 100 ng/mL (75 - 250 nmol/L) Toxicity >100 ng/mL (>250 nmol/L) VLDL Cholesterol 39 mg/dL 5-40 [facility] Protein Test strip Ql (U)Ord ered By: Adryan Aguilera on 12-29-2023 Protein Ql (U) 15 mg/dl Negative [facility] RBC Auto (Bld) [#/Vol]Ordere d By: Adryan Aguilera on 12-29-2023 RBC (Bld) [#/Vol] 3.68 10*6/uL 4.2-5.4 [facility] RBC Auto (Bld) [#/Vol]Ordere d By: Ara Rehman on 12-29-2023 RBC (Bld) [#/Vol] 3.84 10*6/uL 4.2-5.4 [facility] Serum or plasma calcium areli urement (mass/volume)Ordered By: Adryan Aguilera on 12-29-2023 Calcium [Mass/Vol] 9.3 mg/dL 8.5-10.1 [facility] Serum or plasma calcium areli urement (mass/volume)Ordered By: Ara Rehman on 12-29-2023 Calcium [Mass/Vol] 9.3 mg/dL 8.5-10.1 [facility] Serum or plasma creatinine m easurement (mass/volume)Ordered By: Adryan Aguilera on 12-29-2023 Creatinine [Mass/Vol] 1.00 mg/dL 0.55-1.02 [facility] Comment on above: The validity of the calculated GFR & GFRAA in patients over 70 years has not been determined. Clinical correlation is essential. Serum or plasma creatinine m easurement (mass/volume)Ordered By: Ara Rehman on 12-29-2023 Creatinine [Mass/Vol] 1.00 mg/dL 0.55-1.02 [facility] Comment on above: The validity of the calculated GFR & GFRAA in patients over 70 years has not been determined. Clinical correlation is essential. Serum or plasma thyroid stim ulating hormone (TSH) measurement (units/volume)Ordered By: Ara Rehman on 12-29-2023 TSH Qn 0.76 uIU/mL 0.358-3.74 [facility] Serum or plasma urea nitroge n measurement (mass/volume)Ordered By: Adryan Aguilera on 12-29-2023 Urea nitrogen [Mass/Vol] 9 mg/dL 03-24 [facility] Serum or plasma urea nitroge n measurement (mass/volume)Ordered By: Ara Rehman on 12-29-2023 Urea nitrogen [Mass/Vol] 9 mg/dL 03-24 [facility] Squamous epithelial cells de tection in urine sediment by light microscopyOrdered By: Adryan Aguilera on 12-29-2023 Epithelial cells.squamous LM Ql (Urine sed) 0 SEEN /hpf 5-10 [facility] Thin prep Papanicolaou smear with manual screeningOrdered By: Adryan Aguilera on 12-29-2023 Thin prep Papanicolaou smear with manual screening 2.5 g/dL 3.2-5.0 [facility] Thin prep Papanicolaou smear with manual screening 44 U/L 15-37 [facility] Thin prep Papanicolaou smear with manual screening 4 5-15 [facility] Thin prep Papanicolaou smear with manual screeningOrdered By: Ara Rehman on 12-29-2023 Thin prep Papanicolaou smear with manual screening 3 5-15 [facility] Urine blood detectionOrdered By: Adryan Aguilera on 12-29-2023 RBC Ql (U) 10 /ul Negative [facility] Urine clarityOrdered By: Berenice Aguilera on 12-29-2023 Clarity (U) Clear Clear [facility] Urine color determinationOrd ered By: Adryan Aguilera on 12-29-2023 Color (U) Yellow Yellow [facility] Urine glucose detectionOrder ed By: Adryan Aguilera on 12-29-2023 Glucose Ql (U) Normal mg/dl Normal [facility] Urine leukocyte esterase det ection by dipstickOrdered By: Adryan Aguilera on 12-29-2023 Leukocyte esterase Test strip Ql (U) 100 /ul Negative [facility] Urine pHOrdered By: Adryan ackerman on 12-29-2023 pH (U) 5.0 [pH] 5.0 - 8.0 [facility] Urine sediment bacteria coun t by microscopy (number/high power field)Ordered By: Adryan Aguilera on 12-29-2023 Bacteria LM.HPF (Urine sed) [#/Area] 0 /[HPF] None Seen [facility] Urine specific gravity measu rementOrdered By: Adryan Aguilera on 12-29-2023 Specific gravity (U) [Rel density] 1.025 1.002-1.03 0 [facility] Urine urobilinogen measureme ntOrdered By: Adryan Aguilera on 12-29-2023 Urobilinogen Ql (U) Normal mg/dl Normal [facility] CASE MANAGEMon 12-28-2023 CASE MANAGEM Normal [facility] CASE MANAGEM Normal [facility] CBC panel Auto (Bld)on 12-27 Erythrocyte distribution width (RBC) [Ratio] 12.7 % Normal 11.5-15.0 [facility] Comment on above: Order Comment: Speci men Type: BLOOD SPECIMENOrdering Facility: [facility] Address: [address] [place] [address] Performed By: #### 5 8410-2 ####HAND LABORATORYCLIA [id number] [address] Hematocrit (Bld) [Volume fraction] 30.8 % Low 36.0-46.0 [facility] Comment on above: Order Comment: Speci men Type: BLOOD SPECIMENOrdering Facility: [facility] Address: [address] [place] [address] Performed By: #### 5 8410-2 ####HAND LABORATORYCLIA [id number] [address] Hemoglobin (Bld) [Mass/Vol] 9.7 g/dL Low 11.5-15.5 [facility] Comment on above: Order Comment: Speci men Type: BLOOD SPECIMENOrdering Facility: [facility] Address: [address] [place] [address] Performed By: #### 5 8410-2 ####HAND LABORATORYCLIA [id number] [address] MCH (RBC) [Entitic mass] 29.7 pg Normal 26.0-34.0 [facility] Comment on above: Order Comment: Speci men Type: BLOOD SPECIMENOrdering Facility: [facility] Address: [address] [place] [address] Performed By: #### 5 8410-2 ####HAND LABORATORYCLIA [id number] [address] MCHC (RBC) [Mass/Vol] 31.5 g/dL Normal 30.5-36.0 [facility] Comment on above: Order Comment: Speci men Type: BLOOD SPECIMENOrdering Facility: [facility] Address: [address] [place] [address] Performed By: #### 5 8410-2 ####HAND LABORATORYCLIA [id number] [address] MCV (RBC) [Entitic vol] 94.2 fL Normal 80.0-100.0 [facility] Comment on above: Order Comment: Speci men Type: BLOOD SPECIMENOrdering Facility: [facility] Address: [address] [place] [address] Performed By: #### 5 8410-2 ####HAND LABORATORYCLIA [id number] [place] [address] [place] Nucleated RBC (Bld) [#/Vol] 10*3/uL Normal <0.01 [facility] Comment on above: Order Comment: Speci men Type: BLOOD SPECIMENOrdering Facility: [facility] Address: [address] [place] [address] Performed By: #### 5 8410-2 ####HAND LABORATORYCLIA [id number] [place] [address] [place] Platelet mean volume (Bld) [Entitic vol] 8.6 fL Low 9.0-12.7 [facility] Comment on above: Order Comment: Speci men Type: BLOOD SPECIMENOrdering Facility: [facility] Address: [address] [place] [address] Performed By: #### 5 8410-2 ####HAND LABORATORYCLIA [id number] [place] [address] [place] Platelets (Bld) [#/Vol] 333 10*3/uL Normal 150-400 [facility] Comment on above: Order Comment: Speci men Type: BLOOD SPECIMENOrdering Facility: [facility] Address: [address] [place] [address] Performed By: #### 5 8410-2 ####HAND LABORATORYCLIA [id number] [place] [address] [place] RBC (Bld) [#/Vol] 3.27 10*6/uL Low 3.90-5.20 [facility] Comment on above: Order Comment: Speci men Type: BLOOD SPECIMENOrdering Facility: [facility] Address: [address] [place] [address] Performed By: #### 5 8410-2 ####HAND LABORATORYCLIA [id number] [place] [address] [place] WBC (Bld) [#/Vol] 5.70 10*3/uL Normal 3.70-11.00 [facility] Comment on above: Order Comment: Speci men Type: BLOOD SPECIMENOrdering Facility: [facility] Address: [address] [place] [address] Performed By: #### 5 8410-2 ####HAND LABORATORYCLIA [id number] [address] [place] CNDSon 12-28-2023 CNDS Normal [facility] CONSULT PROGon 12-28-2023 CONSULT PROG Normal [facility] CONSULT PROG Normal [facility] Comprehensive metabolic 2000 panelon 12-28-2023 Albumin [Mass/Vol] 3.4 g/dL Low 3.9-4.9 [facility] Comment on above: Order Comment: Speci men Type: BLOOD SPECIMENOrdering Facility: [facility] Address: [address] [place] [address] Performed By: #### 2 4323-8 ####HAND LABORATORYCLIA [id number] [place] [address] [place] ALP [Catalytic activity/Vol] 165 U/L High 34-123 [facility] Comment on above: Order Comment: Speci men Type: BLOOD SPECIMENOrdering Facility: [facility] Address: [address] [place] [address] Performed By: #### 2 4323-8 ####HAND LABORATORYCLIA [id number] [address] [place] ALT [Catalytic activity/Vol] 15 U/L Normal 7-38 [facility] Comment on above: Order Comment: Speci men Type: BLOOD SPECIMENOrdering Facility: [facility] Address: [address] [place] [address] Performed By: #### 2 4323-8 ####HAND LABORATORYCLIA [id number] [place] [address] [place] Anion gap [Moles/Vol] 5 mmol/L Low 9-18 [facility] Comment on above: Order Comment: Speci men Type: BLOOD SPECIMENOrdering Facility: [facility] Address: [address] [place] [address] Performed By: #### 2 4323-8 ####HAND LABORATORYCLIA [id number] [place] [address] [place] AST [Catalytic activity/Vol] 26 U/L Normal 13-35 [facility] Comment on above: Order Comment: Speci men Type: BLOOD SPECIMENOrdering Facility: [facility] Address: [address] [place] [address] Performed By: #### 2 4323-8 ####HAND LABORATORYCLIA [id number] [place] [address] [place] Bilirubin [Mass/Vol] 0.2 mg/dL Normal 0.2-1.3 [facility] Comment on above: Order Comment: Speci men Type: BLOOD SPECIMENOrdering Facility: [facility] Address: [address] [place] [address] Performed By: #### 2 4323-8 ####HAND LABORATORYCLIA [id number] [place] [address] [place] Calcium [Mass/Vol] 9.5 mg/dL Normal 8.5-10.2 [facility] Comment on above: Order Comment: Speci men Type: BLOOD SPECIMENOrdering Facility: [facility] Address: [address] [place] [address] Performed By: #### 2 4323-8 ####HAND LABORATORYCLIA [id number] [place] [address] [place] Chloride [Moles/Vol] 105 mmol/L Normal 97-105 [facility] Comment on above: Order Comment: Speci men Type: BLOOD SPECIMENOrdering Facility: [facility] Address: [address] [place] [address] Performed By: #### 2 4323-8 ####HAND LABORATORYCLIA [id number] [place] [address] [place] CO2 [Moles/Vol] 35 mmol/L High 22-30 [facility] Comment on above: Order Comment: Speci men Type: BLOOD SPECIMENOrdering Facility: [facility] Address: [address] [place] [address] Performed By: #### 2 4323-8 ####HAND LABORATORYCLIA [id number] [address] STATES OF [facility] Creatinine [Mass/Vol] 1.24 mg/dL High 0.58-0.96 [facility] Comment on above: Order Comment: Cesar piper Type: BLOOD SPECIMENOrdering Facility: [facility] Address: [address] [place] [address] Performed By: #### 2 4323-8 ####HAND LABORATORYCLIA [id number] [address] Creatinine and Glomerular filtration rate.predicted panel (S/P/Bld) 48 mL/min/1.73m??? Low >=60 [facility] Comment on above: Order Comment: Cesar piper Type: BLOOD SPECIMENOrdering Facility: [facility] Address: [address] [place] [address] Result Comment: Sweta mated Glomerular Filtration Rate (eGFR) is calculated using the 2020 CKD-EPI creatinine equation. This equation utilizes serum creatinine, sex, and age as parameters. The creatinine assay has traceable calibration to isotope dilution-mass spectrometry. Refer to KDIGO guidelines for clinical interpretation. In patients with unstable renal function, e.g. those with acute kidney injury, the eGFR may not accurately reflect actual GFR. Performed By: #### 2 4323-8 ####HAND LABORATORYCLIA [id number] [address] Glucose [Mass/Vol] 96 mg/dL Normal 74-99 [facility] Comment on above: Order Comment: Cesar piper Type: BLOOD SPECIMENOrdering Facility: [facility] Address: [address] [place] [address] Result Comment: The [place] Diabetes Association (ADA) provides guidance for cutoff values for fasting glucose and random glucose. The ADA defines fasting as no caloric intake for at least 8 hours. Fasting plasma glucose results between 100 to 125 mg/dL indicate increased risk for diabetes (prediabetes).Fasting plasma glucose results greater than or equal to 126 mg/dL meet the criteria for diagnosis of diabetes. In the absence of unequivocal hyperglycemia, results should be confirmed by repeat testing. In a patient with classic symptoms of hyperglycemia or hyperglycemic crisis, random plasma glucose results greater than or equal to 200 mg/dL meet the criteria for diagnosis of diabetes.Reference: Standards of Medical Care in Diabetes 2016, [place] Diabetes Association. Diabetes Care. 2016.39(Suppl 1). Performed By: #### 2 4323-8 ####HAND LABORATORYCLIA [id number] [place] [address] [place] Potassium [Moles/Vol] 4.3 mmol/L Normal 3.7-5.1 [facility] Comment on above: Order Comment: Speci men Type: BLOOD SPECIMENOrdering Facility: [facility] Address: [address] [place] [address] Performed By: #### 2 4323-8 ####HAND LABORATORYCLIA [id number] [address] [place] Protein [Mass/Vol] 6.3 g/dL Normal 6.3-8.0 [facility] Comment on above: Order Comment: Speci men Type: BLOOD SPECIMENOrdering Facility: [facility] Address: [address] [place] [address] Performed By: #### 2 4323-8 ####HAND LABORATORYCLIA [id number] [address] STATES [facility] Sodium [Moles/Vol] 145 mmol/L High 136-144 [facility] Comment on above: Order Comment: Holai men Type: BLOOD SPECIMENOrdering Facility: [facility] Address: [address] [place] [address] Performed By: #### 2 4323-8 ####HAND LABORATORYCLIA [id number] [address] [place] Urea nitrogen [Mass/Vol] 12 mg/dL Normal - [facility] Comment on above: Order Comment: Speci men Type: BLOOD SPECIMENOrdering Facility: [facility] Address: [address] [place] [address] Performed By: #### 2 4323-8 ####HAND LABORATORYCLIA [id number] [place] [address] [place] NURSING PROGon 12-28-2023 NURSING PROG Normal [facility] CBC panel Auto (Bld)on 12-26 Erythrocyte distribution width (RBC) [Ratio] 12.8 % Normal 11.5-15.0 [facility] Comment on above: Order Comment: Speci men Type: BLOOD SPECIMENOrdering Facility: [facility] Address: [address] [place] [address] Performed By: #### 5 8410-2 ####HAND LABORATORYCLIA [id number] [address] [place] Hematocrit (Bld) [Volume fraction] 32.6 % Low 36.0-46.0 [facility] Comment on above: Order Comment: Speci men Type: BLOOD SPECIMENOrdering Facility: [facility] Address: [address] [place] [address] Performed By: #### 5 8410-2 ####HAND LABORATORYCLIA [id number] [address] [place] Hemoglobin (Bld) [Mass/Vol] 10.4 g/dL Low 11.5-15.5 [facility] Comment on above: Order Comment: Speci men Type: BLOOD SPECIMENOrdering Facility: [facility] Address: [address] [place] [address] Performed By: #### 5 8410-2 ####HAND LABORATORYCLIA [id number] [address] MCH (RBC) [Entitic mass] 30.3 pg Normal 26.0-34.0 [facility] Comment on above: Order Comment: Speci men Type: BLOOD SPECIMENOrdering Facility: [facility] Address: [address] [place] [address] Performed By: #### 5 8410-2 ####HAND LABORATORYCLIA [id number] [address] [place] MCHC (RBC) [Mass/Vol] 31.9 g/dL Normal 30.5-36.0 [facility] Comment on above: Order Comment: Speci men Type: BLOOD SPECIMENOrdering Facility: [facility] Address: [address] [place] [address] Performed By: #### 5 8410-2 ####HAND LABORATORYCLIA [id number] [address] [place] MCV (RBC) [Entitic vol] 95.0 fL Normal 80.0-100.0 [facility] Comment on above: Order Comment: Speci men Type: BLOOD SPECIMENOrdering Facility: [facility] Address: [address] [place] [address] Performed By: #### 5 8410-2 ####HAND LABORATORYCLIA [id number] [address] [place] Nucleated RBC (Bld) [#/Vol] 10*3/uL Normal <0.01 [facility] Comment on above: Order Comment: Speci men Type: BLOOD SPECIMENOrdering Facility: [facility] Address: [address] [place] [address] Performed By: #### 5 8410-2 ####HAND LABORATORYCLIA [id number] [address] Platelet mean volume (Bld) [Entitic vol] 8.6 fL Low 9.0-12.7 [facility] Comment on above: Order Comment: Speci men Type: BLOOD SPECIMENOrdering Facility: [facility] Address: [address] [place] [address] Performed By: #### 5 8410-2 ####HAND LABORATORYCLIA [id number] [address] [place] Platelets (Bld) [#/Vol] 364 10*3/uL Normal 150-400 [facility] Comment on above: Order Comment: Speci men Type: BLOOD SPECIMENOrdering Facility: [facility] Address: [address] [place] [address] Performed By: #### 5 8410-2 ####HAND LABORATORYCLIA [id number] [place] [address] [place] RBC (Bld) [#/Vol] 3.43 10*6/uL Low 3.90-5.20 [facility] Comment on above: Order Comment: Speci men Type: BLOOD SPECIMENOrdering Facility: [facility] Address: [address] [place] [address] Performed By: #### 5 8410-2 ####HAND LABORATORYCLIA [id number] [place] [address] [place] WBC (Bld) [#/Vol] 5.83 10*3/uL Normal 3.70-11.00 [facility] Comment on above: Order Comment: Speci men Type: BLOOD SPECIMENOrdering Facility: [facility] Address: [address] [place] [address] Performed By: #### 5 8410-2 ####[facility] LABORATORYCLIA [id number] [place] [address] [place] [facility] [place] CONSULT [facility]OGon 12-27-[facility] Comprehensive metabolic 2000 panelon 12-27-2023 Albumin [Mass/Vol] 3.2 g/dL Low 3.9-4.9 [facility] Comment on above: Order Comment: Speci men Type: BLOOD SPECIMENOrdering Facility: [facility] Address: [address] [place] [address] Performed By: #### 2 4323-8 ####RENTON LABORATORYCLIA [id number] [place] [address] [place] ALP [Catalytic activity/Vol] 184 U/L High 34-123 [facility] Comment on above: Order Comment: Speci men Type: BLOOD SPECIMENOrdering Facility: [facility] Address: [address] [place] [address] Performed By: #### 2 4323-8 ####RENT[facility] LABORATORYCLIA [id number] [address] [place] ALT [Catalytic activity/Vol] 10 U/L Normal 7-38 [facility] Comment on above: Order Comment: Speci men Type: BLOOD SPECIMENOrdering Facility: [facility] Address: [address] [place] [address] Performed By: #### 2 4323-8 ####HAND LABORATORYCLIA [id number] [place] [address] [place] Anion gap [Moles/Vol] 6 mmol/L Low 9-18 [facility] Comment on above: Order Comment: Speci men Type: BLOOD SPECIMENOrdering Facility: [facility] Address: [address] [place] [address] Performed By: #### 2 4323-8 ####HAND LABORATORYCLIA [id number] [place] [address] [place] AST [Catalytic activity/Vol] 21 U/L Normal 13-35 [facility] Comment on above: Order Comment: Speci men Type: BLOOD SPECIMENOrdering Facility: [facility] Address: [address] [place] [address] Performed By: #### 2 4323-8 ####HAND LABORATORYCLIA [id number] [place] [address] [place] Bilirubin [Mass/Vol] mg/dL Low 0.2-1.3 [facility] Comment on above: Order Comment: Speci men Type: BLOOD SPECIMENOrdering Facility: [facility] Address: [address] [place] [address] Performed By: #### 2 4323-8 ####HAND LABORATORYCLIA [id number] [place] [address] [place] Calcium [Mass/Vol] 9.4 mg/dL Normal 8.5-10.2 [facility] Comment on above: Order Comment: Speci men Type: BLOOD SPECIMENOrdering Facility: [facility] Address: [address] [place] [address] Performed By: #### 2 4323-8 ####HAND LABORATORYCLIA [id number] [place] [address] [place] Chloride [Moles/Vol] 103 mmol/L Normal 97-105 [facility] Comment on above: Order Comment: Speci men Type: BLOOD SPECIMENOrdering Facility: [facility] Address: [address] [place] [address] Performed By: #### 2 4323-8 ####HAND LABORATORYCLIA [id number] [place] [address] [place] CO2 [Moles/Vol] 32 mmol/L High 22-30 [facility] Comment on above: Order Comment: Speci men Type: BLOOD SPECIMENOrdering Facility: [facility] Address: [address] [place] [address] Performed By: #### 2 4323-8 ####HAND LABORATORYCLIA [id number] [address] [place] Creatinine [Mass/Vol] 1.15 mg/dL High 0.58-0.96 [facility] Comment on above: Order Comment: Cesar piper Type: BLOOD SPECIMENOrdering Facility: [facility] Address: [address] [place] [address] Performed By: #### 2 4323-8 ####HAND LABORATORYCLIA [id number] [address] Creatinine and Glomerular filtration rate.predicted panel (S/P/Bld) 52 mL/min/1.73m??? Low >=60 [facility] Comment on above: Order Comment: Cesar piper Type: BLOOD SPECIMENOrdering Facility: [facility] Address: [address] [place] [address] Result Comment: Sweta mated Glomerular Filtration Rate (eGFR) is calculated using the 2020 CKD-EPI creatinine equation. This equation utilizes serum creatinine, sex, and age as parameters. The creatinine assay has traceable calibration to isotope dilution-mass spectrometry. Refer to KDIGO guidelines for clinical interpretation. In patients with unstable renal function, e.g. those with acute kidney injury, the eGFR may not accurately reflect actual GFR. Performed By: #### 2 4323-8 ####HAND LABORATORYCLIA [id number] [address] STATES [place] Glucose [Mass/Vol] 108 mg/dL High 74-99 [facility] Comment on above: Order Comment: Cesar piper Type: BLOOD SPECIMENOrdering Facility: [facility] Address: [address] [place] [address] Result Comment: The [place] Diabetes Association (ADA) provides guidance for cutoff values for fasting glucose and random glucose. The ADA defines fasting as no caloric intake for at least 8 hours. Fasting plasma glucose results between 100 to 125 mg/dL indicate increased risk for diabetes (prediabetes).Fasting plasma glucose results greater than or equal to 126 mg/dL meet the criteria for diagnosis of diabetes. In the absence of unequivocal hyperglycemia, results should be confirmed by repeat testing. In a patient with classic symptoms of hyperglycemia or hyperglycemic crisis, random plasma glucose results greater than or equal to 200 mg/dL meet the criteria for diagnosis of diabetes.Reference: Standards of Medical Care in Diabetes 2016, [place] Diabetes Association. Diabetes Care. 2016.39(Suppl 1). Performed By: #### 2 4323-8 ####HAND LABORATORYCLIA [id number] [place] [address] [place] Potassium [Moles/Vol] 4.2 mmol/L Normal 3.7-5.1 [facility] Comment on above: Order Comment: Speci men Type: BLOOD SPECIMENOrdering Facility: [facility] Address: [address] [place] [address] Performed By: #### 2 4323-8 ####HAND LABORATORYCLIA [id number] [place] [address] [place] Protein [Mass/Vol] 6.7 g/dL Normal 6.3-8.0 [facility] Comment on above: Order Comment: Speci men Type: BLOOD SPECIMENOrdering Facility: [facility] Address: [address] [place] [address] Performed By: #### 2 4323-8 ####HAND LABORATORYCLIA [id number] [place] [address] [place] Sodium [Moles/Vol] 141 mmol/L Normal 136-144 [facility] Comment on above: Order Comment: Holai men Type: BLOOD SPECIMENOrdering Facility: [facility] Address: [address] [place] [address] Performed By: #### 2 4323-8 ####HAND LABORATORYCLIA [id number] [place] [address] [place] Urea nitrogen [Mass/Vol] 10 mg/dL Normal 7-21 [facility] Comment on above: Order Comment: Holai men Type: BLOOD SPECIMENOrdering Facility: [facility] Address: [facility] [place] [address] Performed By: #### 2 4323-8 ####HAND LABORATORYCLIA [id number] [place] [id number] [place] NUTRITIONon 04-21-2024 NUTRITION Normal [facility] ALLIED HEALTHon 12-26-2023 [facility] CBC panel Auto (Bld)on 12-25 Erythrocyte distribution width (RBC) [Ratio] 12.6 % Normal 11.5-15.0 [facility] Comment on above: Order Comment: Speci men Type: BLOOD SPECIMENOrdering Facility: [facility] Address: [address] [place] [address] Performed By: #### 5 8410-2 ####HAND LABORATORYCLIA [id number] [address] [facility] Hematocrit (Bld) [Volume fraction] 33.2 % Low 36.0-46.0 [facility] Comment on above: Order Comment: Speci men Type: BLOOD SPECIMENOrdering Facility: [facility] Address: [address] [place] [address] Performed By: #### 5 8410-2 ####HAND LABORATORYCLIA [id number] [address] [place] Hemoglobin (Bld) [Mass/Vol] 10.3 g/dL Low 11.5-15.5 [facility] Comment on above: Order Comment: Speci men Type: BLOOD SPECIMENOrdering Facility: [facility] Address: [address] [place] [address] Performed By: #### 5 8410-2 ####HAND LABORATORYCLIA [id number] [address] [place] MCH (RBC) [Entitic mass] 29.9 pg Normal 26.0-34.0 [facility] Comment on above: Order Comment: Speci men Type: BLOOD SPECIMENOrdering Facility: [facility] Address: [address] [place] [address] Performed By: #### 5 8410-2 ####HAND LABORATORYCLIA [id number] [address] [place] MCHC (RBC) [Mass/Vol] 31.0 g/dL Normal 30.5-36.0 [facility] Comment on above: Order Comment: Speci men Type: BLOOD SPECIMENOrdering Facility: [facility] Address: [address] [place], [place] [address] Performed By: #### 5 8410-2 ####HAND LABORATORYCLIA [id number] [address] [place] MCV (RBC) [Entitic vol] 96.2 fL Normal 80.0-100.0 [facility] Comment on above: Order Comment: Speci men Type: BLOOD SPECIMENOrdering Facility: [facility] Address: [address] [place] [address] Performed By: #### 5 8410-2 ####HAND LABORATORYCLIA [id number] [address] [place] Nucleated RBC (Bld) [#/Vol] 10*3/uL Normal <0.01 [facility] Comment on above: Order Comment: Speci men Type: BLOOD SPECIMENOrdering Facility: [facility] Address: [address] [place] [address] Performed By: #### 5 8410-2 ####HAND LABORATORYCLIA [id number] [address] Platelet mean volume (Bld) [Entitic vol] 8.8 fL Low 9.0-12.7 [facility] Comment on above: Order Comment: Speci men Type: BLOOD SPECIMENOrdering Facility: [facility] Address: [address] [place] [address] Performed By: #### 5 8410-2 ####HAND LABORATORYCLIA [id number] [address] [place] Platelets (Bld) [#/Vol] 398 10*3/uL Normal 150-400 [facility] Comment on above: Order Comment: Speci men Type: BLOOD SPECIMENOrdering Facility: [facility] Address: [address] [place] [address] Performed By: #### 5 8410-2 ####HAND LABORATORYCLIA [id number] [address] [place] RBC (Bld) [#/Vol] 3.45 10*6/uL Low 3.90-5.20 [facility] Comment on above: Order Comment: Speci men Type: BLOOD SPECIMENOrdering Facility: [facility] Address: [address] [place] [address] Performed By: #### 5 8410-2 ####HAND LABORATORYCLIA [id number] [place] [address] [place] WBC (Bld) [#/Vol] 7.45 10*3/uL Normal 3.70-11.00 [facility] Comment on above: Order Comment: Speci men Type: BLOOD SPECIMENOrdering Facility: [facility] Address: [address] [place] [address] Performed By: #### 5 8410-2 ####HAND LABORATORYCLIA [id number] [address] CONSULT PROGon 12-26-2023 CONSULT [facility] Normal [facility] CONSULT PRO Normal [facility] CONSULT [facility] Normal [facility] Comprehensive metabolic 2000 panelon 12-26-2023 Albumin [Mass/Vol] 3.2 g/dL Low 3.9-4.9 [facility] Comment on above: Order Comment: Speci men Type: BLOOD SPECIMENOrdering Facility: [facility] Address: [address] [place] [address] Performed By: #### 2 4323-8 ####HAND LABORATORYCLIA [id number] [address] ALP [Catalytic activity/Vol] 174 U/L High 34-123 [facility] Comment on above: Order Comment: Speci men Type: BLOOD SPECIMENOrdering Facility: [facility] Address: [address] [place] [address] Performed By: #### 2 4323-8 ####HAND LABORATORYCLIA [id number] [address] ALT [Catalytic activity/Vol] 5 U/L Low 7-38 [facility] Comment on above: Order Comment: Speci men Type: BLOOD SPECIMENOrdering Facility: [facility] Address: [address] [place] [address] Performed By: #### 2 4323-8 ####HAND LABORATORYCLIA [id number] [address] [place] Anion gap [Moles/Vol] 9 mmol/L Normal 9-18 [facility] Comment on above: Order Comment: Speci men Type: BLOOD SPECIMENOrdering Facility: [facility] Address: [address] [place] [address] Performed By: #### 2 4323-8 ####HAND LABORATORYCLIA [id number] [place] [address] [place] AST [Catalytic activity/Vol] 15 U/L Normal 13-35 [facility] Comment on above: Order Comment: Speci men Type: BLOOD SPECIMENOrdering Facility: [facility] Address: [address] [place] [address] Performed By: #### 2 4323-8 ####HAND LABORATORYCLIA [id number] [place] [address] [place] Bilirubin [Mass/Vol] 0.2 mg/dL Normal 0.2-1.3 [facility] Comment on above: Order Comment: Speci men Type: BLOOD SPECIMENOrdering Facility: [facility] Address: [address] [place] [address] Performed By: #### 2 4323-8 ####HAND LABORATORYCLIA [id number] [address] [place] Calcium [Mass/Vol] 9.6 mg/dL Normal 8.5-10.2 [facility] Comment on above: Order Comment: Speci men Type: BLOOD SPECIMENOrdering Facility: [facility] Address: [facility] [place] [address] Performed By: #### 2 4323-8 ####HAND LABORATORYCLIA [id number] [place] [address] [place] Chloride [Moles/Vol] 104 mmol/L Normal 97-105 [facility] Comment on above: Order Comment: Speci men Type: BLOOD SPECIMENOrdering Facility: [facility] Address: [address] [place] [address] Performed By: #### 2 4323-8 ####HAND LABORATORYCLIA [id number] [place] [address] [place] CO2 [Moles/Vol] 30 mmol/L Normal 22-30 [facility] Comment on above: Order Comment: Cesar feliz Type: BLOOD SPECIMENOrdering Facility: [facility] Address: [address] [place] [address] Performed By: #### 2 4323-8 ####HAND LABORATORYCLIA [id number] [place] [address] [place] Creatinine [Mass/Vol] 1.06 mg/dL High 0.58-0.96 [facility] Comment on above: Order Comment: Cesar feliz Type: BLOOD SPECIMENOrdering Facility: [facility] Address: [address] [place] [address] Performed By: #### 2 4323-8 ####HAND LABORATORYCLIA [id number] [address] [place] Creatinine and Glomerular filtration rate.predicted panel (S/P/Bld) 58 mL/min/1.73m??? Low >=60 [facility] Comment on above: Order Comment: Cesar feliz Type: BLOOD SPECIMENOrdering Facility: [facility] Address: [address] [place] [address] Result Comment: Sweta mated Glomerular Filtration Rate (eGFR) is calculated using the 2020 CKD-EPI creatinine equation. This equation utilizes serum creatinine, sex, and age as parameters. The creatinine assay has traceable calibration to isotope dilution-mass spectrometry. Refer to KDIGO guidelines for clinical interpretation. In patients with unstable renal function, e.g. those with acute kidney injury, the eGFR may not accurately reflect actual GFR. Performed By: #### 2 4323-8 ####HAND LABORATORYCLIA [id number] [address] [place] Glucose [Mass/Vol] 90 mg/dL Normal 74-99 [facility] Comment on above: Order Comment: Cesar piper Type: BLOOD SPECIMENOrdering Facility: [facility] Address: [address] [place] [address] Result Comment: The [place] Diabetes Association (ADA) provides guidance for cutoff values for fasting glucose and random glucose. The ADA defines fasting as no caloric intake for at least 8 hours. Fasting plasma glucose results between 100 to 125 mg/dL indicate increased risk for diabetes (prediabetes).Fasting plasma glucose results greater than or equal to 126 mg/dL meet the criteria for diagnosis of diabetes. In the absence of unequivocal hyperglycemia, results should be confirmed by repeat testing. In a patient with classic symptoms of hyperglycemia or hyperglycemic crisis, random plasma glucose results greater than or equal to 200 mg/dL meet the criteria for diagnosis of diabetes.Reference: Standards of Medical Care in Diabetes 2016, [place] Diabetes Association. Diabetes Care. 2016.39(Suppl 1). Performed By: #### 2 4323-8 ####HAND LABORATORYCLIA [id number] [place] [address] [place] Potassium [Moles/Vol] 3.9 mmol/L Normal 3.7-5.1 [facility] Comment on above: Order Comment: Cesar piper Type: BLOOD SPECIMENOrdering Facility: [facility] Address: [address] [place] [address] Performed By: #### 2 4323-8 ####HAND LABORATORYCLIA [id number] [place] [address] [place] Protein [Mass/Vol] 6.5 g/dL Normal 6.3-8.0 [facility] Comment on above: Order Comment: Cesar piper Type: BLOOD SPECIMENOrdering Facility: [facility] Address: [address] [place] [address] Performed By: #### 2 4323-8 ####HAND LABORATORYCLIA [id number] [address] [place] Sodium [Moles/Vol] 143 mmol/L Normal 136-144 [facility] Comment on above: Order Comment: Speci men Type: BLOOD SPECIMENOrdering Facility: [facility] Address: [address] [place] [address] Performed By: #### 2 4323-8 ####HAND LABORATORYCLIA [id number] [place] [address] [place] Urea nitrogen [Mass/Vol] 6 mg/dL Low 7-21 [facility] Comment on above: Order Comment: Holai men Type: BLOOD SPECIMENOrdering Facility: [facility] Address: [address] [place] [address] Performed By: #### 2 4323-8 ####RENTON LABORATORYCLIA [id number] [place] [address] [place] NURSING PROGon 12-26-2023 NURSING PROG Normal [facility] US KIDNEY/BLADDERon 12-26-19 24 US KIDNEY/BLADDER Normal [facility] Bacteria Spec Anaerobe Culto n 12-25-2023 Bacteria identified Anaer cx Nom (Unsp spec) Negative Normal [facility] Comment on above: Performed By: #### 6 35-3, 6462-6 ####[facility] LABCLIA [id number] [address] [address] [place] Bacteria Wnd Culton 12-25-19 Bacteria identified Cx Nom (Wound) Abnormal [facility] Comment on above: Performed By: #### 6 462-6 ####[facility] LABCLIA [id number] [place] [address] [place] Performed By: #### 6 35-3, 6462-6 ####[facility] LABCLIA [id number] [place] [id number] [place] CASE MANAGEMon 12-25-2023 CASE MANAGEM Normal [facility] CBC panel Auto (Bld)on 12-24 Erythrocyte distribution width (RBC) [Ratio] 12.6 % Normal 11.5-15.0 [facility] Comment on above: Order Comment: Speci men Type: BLOOD SPECIMENOrdering Facility: [facility] Address: [address] [place] [address] Performed By: #### 5 8410-2 ####RENTON LABORATORYCLIA [id number] [place] [address] [place] Hematocrit (Bld) [Volume fraction] 31.0 % Low 36.0-46.0 [facility] Comment on above: Order Comment: Speci men Type: BLOOD SPECIMENOrdering Facility: [facility] Address: [address] [place] [address] Performed By: #### 5 8410-2 ####HAND LABORATORYCLIA [id number] [address] Hemoglobin (Bld) [Mass/Vol] 9.8 g/dL Low 11.5-15.5 [facility] Comment on above: Order Comment: Speci men Type: BLOOD SPECIMENOrdering Facility: [facility] Address: [address] [place] [address] Performed By: #### 5 8410-2 ####HAND LABORATORYCLIA [id number] [address] MCH (RBC) [Entitic mass] 30.3 pg Normal 26.0-34.0 [facility] Comment on above: Order Comment: Speci men Type: BLOOD SPECIMENOrdering Facility: [facility] Address: [address] [place] [address] Performed By: #### 5 8410-2 ####HAND LABORATORYCLIA [id number] [address] MCHC (RBC) [Mass/Vol] 31.6 g/dL Normal 30.5-36.0 [facility] Comment on above: Order Comment: Speci men Type: BLOOD SPECIMENOrdering Facility: [facility] Address: [address] [place] [address] Performed By: #### 5 8410-2 ####HAND LABORATORYCLIA [id number] [address] MCV (RBC) [Entitic vol] 96.0 fL Normal 80.0-100.0 [facility] Comment on above: Order Comment: Speci men Type: BLOOD SPECIMENOrdering Facility: [facility] Address: [address] [place] [address] Performed By: #### 5 8410-2 ####HAND LABORATORYCLIA [id number] [address] Nucleated RBC (Bld) [#/Vol] 10*3/uL Normal <0.01 [facility] Comment on above: Order Comment: Speci men Type: BLOOD SPECIMENOrdering Facility: [facility] Address: [address] [place] [address] Performed By: #### 5 8410-2 ####RENTON LABORATORYCLIA [id number] [place] [id number] [place] Platelet mean volume (Bld) [Entitic vol] 8.9 fL Low 9.0-12.7 [facility] Comment on above: Order Comment: Speci men Type: BLOOD SPECIMENOrdering Facility: [facility] Address: [address] [place] [address] Performed By: #### 5 8410-2 ####RENTON LABORATORYCLIA [id number] [place] [address] [place] Platelets (Bld) [#/Vol] 359 10*3/uL Normal 150-400 [facility] Comment on above: Order Comment: Speci men Type: BLOOD SPECIMENOrdering Facility: [facility] Address: [address] [place] [address] Performed By: #### 5 8410-2 ####RENTON LABORATORYCLIA [id number] [place] [address] [place] RBC (Bld) [#/Vol] 3.23 10*6/uL Low 3.90-5.20 [facility] Comment on above: Order Comment: Speci men Type: BLOOD SPECIMENOrdering Facility: [facility] Address: [address] [place] [address] Performed By: #### 5 8410-2 ####RENTON LABORATORYCLIA [id number] [place] [address] [place] WBC (Bld) [#/Vol] 8.76 10*3/uL Normal 3.70-11.00 [facility] Comment on above: Order Comment: Speci men Type: BLOOD SPECIMENOrdering Facility: [facility] Address: [address] [place] [address] Performed By: #### 5 8410-2 ####RENTON LABORATORYCLIA [id number] [address] [place] CONSULT PROGon 12-25-2023 CONSULT PROG Normal [facility] CONSULT PROG Normal [facility] SFT TISS FLUI D BIon 12-25-[address] SFT TISS FLUID BI Normal [facility] Comprehensive metabolic 2000 panelon 12-25-2023 Albumin [Mass/Vol] 3.0 g/dL Low 3.9-4.9 [facility] Comment on above: Order Comment: Speci men Type: BLOOD SPECIMENOrdering Facility: [facility] Address: [address] [place] [address] Performed By: #### 2 4323-8 ####HAND LABORATORYCLIA [id number] [place] [address] [place] ALP [Catalytic activity/Vol] 160 U/L High 34-123 [facility] Comment on above: Order Comment: Speci men Type: BLOOD SPECIMENOrdering Facility: [facility] Address: [address] [place] [address] Performed By: #### 2 4323-8 ####HAND LABORATORYCLIA [id number] [address] [place] ALT [Catalytic activity/Vol] U/L Low 7-38 [facility] Comment on above: Order Comment: Speci men Type: BLOOD SPECIMENOrdering Facility: [facility] Address: [address] [place] [address] Performed By: #### 2 4323-8 ####HAND LABORATORYCLIA [id number] [address] [place] Anion gap [Moles/Vol] 9 mmol/L Normal 9-18 [facility] Comment on above: Order Comment: Speci men Type: BLOOD SPECIMENOrdering Facility: [facility] Address: [address] [place] [address] Performed By: #### 2 4323-8 ####HAND LABORATORYCLIA [id number] [place] [address] [place] AST [Catalytic activity/Vol] 11 U/L Low 13-35 [facility] Comment on above: Order Comment: Speci men Type: BLOOD SPECIMENOrdering Facility: [facility] Address: [address] [place] [address] Performed By: #### 2 4323-8 ####HAND LABORATORYCLIA [id number] [place] [address] [place] Bilirubin [Mass/Vol] 0.2 mg/dL Normal 0.2-1.3 [facility] Comment on above: Order Comment: Speci men Type: BLOOD SPECIMENOrdering Facility: [facility] Address: [address] [place] [address] Performed By: #### 2 4323-8 ####HAND LABORATORYCLIA [id number] [place] [address] [place] Calcium [Mass/Vol] 9.1 mg/dL Normal 8.5-10.2 [facility] Comment on above: Order Comment: Speci men Type: BLOOD SPECIMENOrdering Facility: [facility] Address: [address] [place] [address] Performed By: #### 2 4323-8 ####HAND LABORATORYCLIA [id number] [place] [address] [place] Chloride [Moles/Vol] 106 mmol/L High 97-105 [facility] Comment on above: Order Comment: Speci men Type: BLOOD SPECIMENOrdering Facility: [facility] Address: [address] [place] [address] Performed By: #### 2 4323-8 ####HAND LABORATORYCLIA [id number] [place] [address] [place] CO2 [Moles/Vol] 29 mmol/L Normal 22-30 [facility] Comment on above: Order Comment: Speci men Type: BLOOD SPECIMENOrdering Facility: [facility] Address: [address] [place] [address] Performed By: #### 2 4323-8 ####HAND LABORATORYCLIA [id number] [place] [address] [place] Creatinine [Mass/Vol] 1.05 mg/dL High 0.58-0.96 [facility] Comment on above: Order Comment: Speci men Type: BLOOD SPECIMENOrdering Facility: [facility] Address: [address] [place] [address] Performed By: #### 2 4323-8 ####HAND LABORATORYCLIA [id number] [place] [address] [place] Creatinine and Glomerular filtration rate.predicted panel (S/P/Bld) 58 mL/min/1.73m??? Low >=60 [facility] Comment on above: Order Comment: Cesar piper Type: BLOOD SPECIMENOrdering Facility: [facility] Address: [address] [place] [address] Result Comment: Sweta mated Glomerular Filtration Rate (eGFR) is calculated using the 2020 CKD-EPI creatinine equation. This equation utilizes serum creatinine, sex, and age as parameters. The creatinine assay has traceable calibration to isotope dilution-mass spectrometry. Refer to KDIGO guidelines for clinical interpretation. In patients with unstable renal function, e.g. those with acute kidney injury, the eGFR may not accurately reflect actual GFR. Performed By: #### 2 4323-8 ####HAND LABORATORYCLIA [id number] [place] [address] [place] Glucose [Mass/Vol] 95 mg/dL Normal 74-99 [facility] Comment on above: Order Comment: Cesar piper Type: BLOOD SPECIMENOrdering Facility: [facility] Address: [address] [place] [address] Result Comment: The [place] Diabetes Association (ADA) provides guidance for cutoff values for fasting glucose and random glucose. The ADA defines fasting as no caloric intake for at least 8 hours. Fasting plasma glucose results between 100 to 125 mg/dL indicate increased risk for diabetes (prediabetes).Fasting plasma glucose results greater than or equal to 126 mg/dL meet the criteria for diagnosis of diabetes. In the absence of unequivocal hyperglycemia, results should be confirmed by repeat testing. In a patient with classic symptoms of hyperglycemia or hyperglycemic crisis, random plasma glucose results greater than or equal to 200 mg/dL meet the criteria for diagnosis of diabetes.Reference: Standards of Medical Care in Diabetes 2016, [place] Diabetes Association. Diabetes Care. 2016.39(Suppl 1). Performed By: #### 2 4323-8 ####[facility] LABORATORYCLIA [id number] [place] [id number] [place] Potassium [Moles/Vol] 3.5 mmol/L Low 3.7-5.1 [facility] Comment on above: Order Comment: Cesar piper Type: BLOOD SPECIMENOrdering Facility: [facility] Address: [address] [place] [address] Performed By: #### 2 4323-8 ####HAND LABORATORYCLIA [id number] [address] [place] Protein [Mass/Vol] 6.2 g/dL Low 6.3-8.0 [facility] Comment on above: Order Comment: Speci men Type: BLOOD SPECIMENOrdering Facility: [facility] Address: [address] [place] [address] Performed By: #### 2 4323-8 ####HAND LABORATORYCLIA [id number] [place] [address] [place] Sodium [Moles/Vol] 144 mmol/L Normal 136-144 [facility] Comment on above: Order Comment: Speci men Type: BLOOD SPECIMENOrdering Facility: [facility] Address: [address] [place] [address] Performed By: #### 2 4323-8 ####HAND LABORATORYCLIA [id number] [address] [place] Urea nitrogen [Mass/Vol] 7 mg/dL Normal 7-21 [facility] Comment on above: Order Comment: Speci men Type: BLOOD SPECIMENOrdering Facility: [facility] Address: [address] [place] [address] Performed By: #### 2 4323-8 ####HAND LABORATORYCLIA [id number] [address] [place] NURSING PROGon 12-25-2023 NURSING PROG [facility] PT EDon 12-25-2023 PT ED Normal [facility] CASE MANAGEMon 12-24-2023 CASE MANAGEM [facility] CBC panel Auto (Bld)on 12-23 Erythrocyte distribution width (RBC) [Ratio] 12.9 % Normal 11.5-15.0 [facility] Comment on above: Order Comment: Speci men Type: BLOOD SPECIMENOrdering Facility: [facility] Address: [address] [place] [address] Performed By: #### 5 8410-2 ####HAND LABORATORYCLIA [id number] [address] Hematocrit (Bld) [Volume fraction] 29.9 % Low 36.0-46.0 [facility] Comment on above: Order Comment: Speci men Type: BLOOD SPECIMENOrdering Facility: [facility] Address: [address] [place] [address] Performed By: #### 5 8410-2 ####HAND LABORATORYCLIA [id number] [address] [place] Hemoglobin (Bld) [Mass/Vol] 9.3 g/dL Low 11.5-15.5 [facility] Comment on above: Order Comment: Speci men Type: BLOOD SPECIMENOrdering Facility: [facility] Address: [address] [place] [address] Performed By: #### 5 8410-2 ####HAND LABORATORYCLIA [id number] [address] MCH (RBC) [Entitic mass] 30.3 pg Normal 26.0-34.0 [facility] Comment on above: Order Comment: Speci men Type: BLOOD SPECIMENOrdering Facility: [facility] Address: [address] [place] [address] Performed By: #### 5 8410-2 ####HAND LABORATORYCLIA [id number] [address] MCHC (RBC) [Mass/Vol] 31.1 g/dL Normal 30.5-36.0 [facility] Comment on above: Order Comment: Speci men Type: BLOOD SPECIMENOrdering Facility: [facility] Address: [address] [place] [address] Performed By: #### 5 8410-2 ####HAND LABORATORYCLIA [id number] [address] MCV (RBC) [Entitic vol] 97.4 fL Normal 80.0-100.0 [facility] Comment on above: Order Comment: Speci men Type: BLOOD SPECIMENOrdering Facility: [facility] Address: [address] [place] [address] Performed By: #### 5 8410-2 ####HAND LABORATORYCLIA [id number] [place] [address] [place] Nucleated RBC (Bld) [#/Vol] 10*3/uL Normal <0.01 [facility] Comment on above: Order Comment: Speci men Type: BLOOD SPECIMENOrdering Facility: [facility] Address: [address] [place] [address] Performed By: #### 5 8410-2 ####HAND LABORATORYCLIA [id number] [place] [address] [place] Platelet mean volume (Bld) [Entitic vol] 8.6 fL Low 9.0-12.7 [facility] Comment on above: Order Comment: Speci men Type: BLOOD SPECIMENOrdering Facility: [facility] Address: [address] [place] [address] Performed By: #### 5 8410-2 ####HAND LABORATORYCLIA [id number] [address] [place] Platelets (Bld) [#/Vol] 325 10*3/uL Normal 150-400 [facility] Comment on above: Order Comment: Speci men Type: BLOOD SPECIMENOrdering Facility: [facility] Address: [address] [place] [address] Performed By: #### 5 8410-2 ####HAND LABORATORYCLIA [id number] [address] [place] RBC (Bld) [#/Vol] 3.07 10*6/uL Low 3.90-5.20 [facility] Comment on above: Order Comment: Speci men Type: BLOOD SPECIMENOrdering Facility: [facility] Address: [address] [place] [address] Performed By: #### 5 8410-2 ####HAND LABORATORYCLIA [id number] [address] [place] WBC (Bld) [#/Vol] 8.68 10*3/uL Normal 3.70-11.00 [facility] Comment on above: Order Comment: Speci men Type: BLOOD SPECIMENOrdering Facility: [facility] Address: [address] [place] [address] Performed By: #### 5 8410-2 ####HAND LABORATORYCLIA [id number] [place] [address] [place] CONSULT PROGon 12-24-2023 CONSULT PROG Normal [facility] CONSULT PROG Normal [facility] CONSULT PROG Normal [facility] Comprehensive metabolic 2000 panelon 12-24-2023 Albumin [Mass/Vol] 3.1 g/dL Low 3.9-4.9 [facility] Comment on above: Order Comment: Speci men Type: BLOOD SPECIMENOrdering Facility: [facility] Address: [address] [place] [address] [place] [address] Performed By: #### 2 4323-8 ####HAND LABORATORYCLIA [id number] [address] [place] ALP [Catalytic activity/Vol] 152 U/L High 34-123 [facility] Comment on above: Order Comment: Speci men Type: BLOOD SPECIMENOrdering Facility: [facility] Address: [facility] [place] [address] Performed By: #### 2 4323-8 ####HAND LABORATORYCLIA [id number] [address] [place] ALT [Catalytic activity/Vol] 5 U/L Low 7-38 [facility] Comment on above: Order Comment: Speci men Type: BLOOD SPECIMENOrdering Facility: [facility] Address: [facility] [place] [address] Performed By: #### 2 4323-8 ####HAND LABORATORYCLIA [id number] [place] [address] [place] Anion gap [Moles/Vol] 6 mmol/L Low 9-18 [facility] Comment on above: Order Comment: Speci men Type: BLOOD SPECIMENOrdering Facility: [facility] Address: [facility] [address] Performed By: #### 2 4323-8 ####HAND LABORATORYCLIA [id number] [place] [address] [place] AST [Catalytic activity/Vol] 9 U/L Low 13-35 [facility] Comment on above: Order Comment: Speci men Type: BLOOD SPECIMENOrdering Facility: [facility] Address: [address] [place] [address] Performed By: #### 2 4323-8 ####HAND LABORATORYCLIA [id number] [place] [address] [place] Bilirubin [Mass/Vol] 0.2 mg/dL Normal 0.2-1.3 [facility] Comment on above: Order Comment: Speci men Type: BLOOD SPECIMENOrdering Facility: [facility] Address: [address] [place] [address] Performed By: #### 2 4323-8 ####HAND LABORATORYCLIA [id number] [place] [address] [place] Calcium [Mass/Vol] 9.0 mg/dL Normal 8.5-10.2 [facility] Comment on above: Order Comment: Speci men Type: BLOOD SPECIMENOrdering Facility: [facility] Address: [address] [place] [address] Performed By: #### 2 4323-8 ####HAND LABORATORYCLIA [id number] [place] [address] [place] Chloride [Moles/Vol] 108 mmol/L High 97-105 [facility] Comment on above: Order Comment: Speci men Type: BLOOD SPECIMENOrdering Facility: [facility] Address: [address] [place] [address] Performed By: #### 2 4323-8 ####HAND LABORATORYCLIA [id number] [place] [address] [place] CO2 [Moles/Vol] 31 mmol/L High 22-30 [facility] Comment on above: Order Comment: Speci men Type: BLOOD SPECIMENOrdering Facility: [facility] Address: [address] [place] [address] Performed By: #### 2 4323-8 ####HAND LABORATORYCLIA [id number] [place] [address] [place] Creatinine [Mass/Vol] 1.12 mg/dL High 0.58-0.96 [facility] Comment on above: Order Comment: Speci men Type: BLOOD SPECIMENOrdering Facility: [facility] Address: [address] [place] [address] Performed By: #### 2 4323-8 ####HAND LABORATORYCLIA [id number] [address] [place] Creatinine and Glomerular filtration rate.predicted panel (S/P/Bld) 54 mL/min/1.73m??? Low >=60 [facility] Comment on above: Order Comment: Cesar piper Type: BLOOD SPECIMENOrdering Facility: [facility] Address: [address] [place] [address] Result Comment: Sweta mated Glomerular Filtration Rate (eGFR) is calculated using the 2020 CKD-EPI creatinine equation. This equation utilizes serum creatinine, sex, and age as parameters. The creatinine assay has traceable calibration to isotope dilution-mass spectrometry. Refer to KDIGO guidelines for clinical interpretation. In patients with unstable renal function, e.g. those with acute kidney injury, the eGFR may not accurately reflect actual GFR. Performed By: #### 2 4323-8 ####HAND LABORATORYCLIA [id number] [place] [address] [place] Glucose [Mass/Vol] 108 mg/dL High 74-99 [facility] Comment on above: Order Comment: Cesar piper Type: BLOOD SPECIMENOrdering Facility: [facility] Address: [address] [place] [address] Result Comment: The [place] Diabetes Association (ADA) provides guidance for cutoff values for fasting glucose and random glucose. The ADA defines fasting as no caloric intake for at least 8 hours. Fasting plasma glucose results between 100 to 125 mg/dL indicate increased risk for diabetes (prediabetes).Fasting plasma glucose results greater than or equal to 126 mg/dL meet the criteria for diagnosis of diabetes. In the absence of unequivocal hyperglycemia, results should be confirmed by repeat testing. In a patient with classic symptoms of hyperglycemia or hyperglycemic crisis, random plasma glucose results greater than or equal to 200 mg/dL meet the criteria for diagnosis of diabetes.Reference: Standards of Medical Care in Diabetes 2016, [place] Diabetes Association. Diabetes Care. 2016.39(Suppl 1). Performed By: #### 2 4323-8 ####HAND LABORATORYCLIA [id number] [place] [address] [place] Potassium [Moles/Vol] 4.0 mmol/L Normal 3.7-5.1 [facility] Comment on above: Order Comment: Speci men Type: BLOOD SPECIMENOrdering Facility: [facility] Address: [address] [place] [address] Performed By: #### 2 4323-8 ####HAND LABORATORYCLIA [id number] [place] [address] [place] Protein [Mass/Vol] 6.0 g/dL Low 6.3-8.0 [facility] Comment on above: Order Comment: Speci men Type: BLOOD SPECIMENOrdering Facility: [facility] Address: [address] [place] [address] Performed By: #### 2 4323-8 ####HAND LABORATORYCLIA [id number] [place] [address] [place] Sodium [Moles/Vol] 145 mmol/L High 136-144 [facility] Comment on above: Order Comment: Speci men Type: BLOOD SPECIMENOrdering Facility: [facility] Address: [address] [place] [address] Performed By: #### 2 4323-8 ####HAND LABORATORYCLIA [id number] [place] [address] [place] Urea nitrogen [Mass/Vol] 8 mg/dL Normal 7-21 [facility] Comment on above: Order Comment: Speci men Type: BLOOD SPECIMENOrdering Facility: [facility] Address: [address] [place] [address] Performed By: #### 2 4323-8 ####HAND LABORATORYCLIA [id number] [place] [address] [place] ALLIED HEALTHon 12-23-2023 ALLIED HEALTH Normal [facility] CASE MANAGEMon 12-23-2023 CASE MANAGEM Normal [facility] CASE MANAGEM Normal [facility] CASE MANAGEM Normal [facility] CBC panel Auto (Bld)on 12-22 Erythrocyte distribution width (RBC) [Ratio] 13.1 % Normal 11.5-15.0 [facility] Comment on above: Order Comment: Speci men Type: BLOOD SPECIMENOrdering Facility: [facility] Address: [address] [place] [address] Performed By: #### 5 8410-2 ####HAND LABORATORYCLIA [id number] [address] OF [facility] Hematocrit (Bld) [Volume fraction] 29.9 % Low 36.0-46.0 [facility] Comment on above: Order Comment: Speci men Type: BLOOD SPECIMENOrdering Facility: [facility] Address: [address] [place] [address] Performed By: #### 5 8410-2 ####HAND LABORATORYCLIA [id number] [address] [place] Hemoglobin (Bld) [Mass/Vol] 9.3 g/dL Low 11.5-15.5 [facility] Comment on above: Order Comment: Speci men Type: BLOOD SPECIMENOrdering Facility: [facility] Address: [address] [place] [address] Performed By: #### 5 8410-2 ####HAND LABORATORYCLIA [id number] [address] MCH (RBC) [Entitic mass] 29.7 pg Normal 26.0-34.0 [facility] Comment on above: Order Comment: Speci men Type: BLOOD SPECIMENOrdering Facility: [facility] Address: [address] [place] [address] Performed By: #### 5 8410-2 ####HAND LABORATORYCLIA [id number] [address] MCHC (RBC) [Mass/Vol] 31.1 g/dL Normal 30.5-36.0 [facility] Comment on above: Order Comment: Speci men Type: BLOOD SPECIMENOrdering Facility: [facility] Address: [address] [place] [address] Performed By: #### 5 8410-2 ####HAND LABORATORYCLIA [id number] [address] MCV (RBC) [Entitic vol] 95.5 fL Normal 80.0-100.0 [facility] Comment on above: Order Comment: Speci men Type: BLOOD SPECIMENOrdering Facility: [facility] Address: [address] [place] [address] Performed By: #### 5 8410-2 ####HAND LABORATORYCLIA [id number] [place] [address] [place] Nucleated RBC (Bld) [#/Vol] 10*3/uL Normal <0.01 [facility] Comment on above: Order Comment: Speci men Type: BLOOD SPECIMENOrdering Facility: [facility] Address: [address] [place] [address] Performed By: #### 5 8410-2 ####HAND LABORATORYCLIA [id number] [place] [address] [place] Platelet mean volume (Bld) [Entitic vol] 9.1 fL Normal 9.0-12.7 [facility] Comment on above: Order Comment: Speci men Type: BLOOD SPECIMENOrdering Facility: [facility] Address: [address] [place] [address] Performed By: #### 5 8410-2 ####HAND LABORATORYCLIA [id number] [place] [address] [place] Platelets (Bld) [#/Vol] 355 10*3/uL Normal 150-400 [facility] Comment on above: Order Comment: Speci men Type: BLOOD SPECIMENOrdering Facility: [facility] Address: [address] [facility] [place] [address] Performed By: #### 5 8410-2 ####HAND LABORATORYCLIA [id number] [place] [address] [place] RBC (Bld) [#/Vol] 3.13 10*6/uL Low 3.90-5.20 [facility] Comment on above: Order Comment: Speci men Type: BLOOD SPECIMENOrdering Facility: [facility] Address: [address] [place] [address] Performed By: #### 5 8410-2 ####HAND LABORATORYCLIA [id number] [place] [address] [place] WBC (Bld) [#/Vol] 10.78 10*3/uL Normal 3.70-11.00 [facility] Comment on above: Order Comment: Speci men Type: BLOOD SPECIMENOrdering Facility: [facility] Address: [address] [place] [address] Performed By: #### 5 8410-2 ####RENTON LABORATORYCLIA [id number] [place] [address] [place] CK TOTAL AND CK-MBon 024 CK [Catalytic activity/Vol] 9 U/L Low 42-196 [facility] Comment on above: Order Comment: Speci men Type: BLOOD SPECIMENOrdering Facility: [facility] Address: [address] [place] [address] Performed By: #### C MARIA DEL CARMEN, 99157-8, HSTNT, 12131-8 ####RENTON LABORATORYCLIA [id number] [place] [address] [place] CK.MB [Mass/Vol] ng/mL Normal <4.4 [facility] Comment on above: Order Comment: Speci men Type: BLOOD SPECIMENOrdering Facility: [facility] Address: [address] [place] [address] Performed By: #### C MARIA DEL CARMEN, 37693-3, HSTNT, 54726-5 ####HAND LABORATORYCLIA [id number] [address] [place] CK.MB [Ratio] Normal [facility] Comment on above: Order Comment: Speci men Type: BLOOD SPECIMENOrdering Facility: [facility] Address: [address] [place] [address] Result Comment: CK M B % not reported with CK <100 U/L. Performed By: #### C KAVYAB, 55524-8, HSTNT, 43883-6 ####HAND LABORATORYCLIA [id number] [place] [address] [place] CONSULT PROGon 12-23-2023 CONSULT PROG Normal [facility] CONSULT PROG Normal [facility] CONSULT PROG Normal [facility] Comprehensive metabolic 2000 panelon 12-23-2023 Albumin [Mass/Vol] 3.1 g/dL Low 3.9-4.9 [facility] Comment on above: Order Comment: Speci men Type: BLOOD SPECIMENOrdering Facility: [facility] Address: [address] [place] [address] Performed By: #### C MARIA DEL CARMEN, 40715-0, HSTNT, 28730-5 ####HAND LABORATORYCLIA [id number] [place] [address] [place] ALP [Catalytic activity/Vol] 164 U/L High 34-123 [facility] Comment on above: Order Comment: Speci men Type: BLOOD SPECIMENOrdering Facility: [facility] Address: [address] [place] [address] Performed By: #### C MARIA DEL CARMEN, 89175-2, HSTNT, 77755-0 ####HAND LABORATORYCLIA [id number] [address] [place] ALT [Catalytic activity/Vol] 5 U/L Low 7-38 [facility] Comment on above: Order Comment: Speci men Type: BLOOD SPECIMENOrdering Facility: [facility] Address: [address] [place] [address] Performed By: #### C MARIA DEL CARMEN, 66852-0, HSTNT, 89849-5 ####HAND LABORATORYCLIA [id number] [place] [address] [place] Anion gap [Moles/Vol] 7 mmol/L Low 9-18 [facility] Comment on above: Order Comment: Speci men Type: BLOOD SPECIMENOrdering Facility: [facility] Address: [address] [place] [address] Performed By: #### C KAVYAB, 25520-3, HSTNT, 93321-6 ####HAND LABORATORYCLIA [id number] [place] [address] [place] AST [Catalytic activity/Vol] 7 U/L Low 13-35 [facility] Comment on above: Order Comment: Speci men Type: BLOOD SPECIMENOrdering Facility: [facility] Address: [address] [place] [address] Performed By: #### C KCKMB, 63172-5, HSTNT, 39182-7 ####HAND LABORATORYCLIA [id number] [place] [address] [place] Bilirubin [Mass/Vol] 0.4 mg/dL Normal 0.2-1.3 [facility] Comment on above: Order Comment: Speci men Type: BLOOD SPECIMENOrdering Facility: [facility] Address: [facility] [address] Performed By: #### C KCKMB, 49827-2, HSTNT, 66166-4 ####HAND LABORATORYCLIA [id number] [place] [address] [place] Calcium [Mass/Vol] 8.6 mg/dL Normal 8.5-10.2 [facility] Comment on above: Order Comment: Speci men Type: BLOOD SPECIMENOrdering Facility: [facility] Address: [facility] [place] [address] Performed By: #### C KAVYAB, 67734-3, HSTNT, 37910-8 ####HAND LABORATORYCLIA [id number] [place] [address] [place] Chloride [Moles/Vol] 104 mmol/L Normal 97-105 [facility] Comment on above: Order Comment: Speci men Type: BLOOD SPECIMENOrdering Facility: [facility] Address: [facility] [address] Performed By: #### C KAVYAB, 17372-9, HSTNT, 15652-3 ####HAND LABORATORYCLIA [id number] [place] [address] [place] CO2 [Moles/Vol] 31 mmol/L High 22-30 [facility] Comment on above: Order Comment: Speci men Type: BLOOD SPECIMENOrdering Facility: [facility] Address: [facility] [place] [address] Performed By: #### C KAVYAB, 61848-1, HSTNT, 84348-5 ####HAND LABORATORYCLIA [id number] [address] [facility] Creatinine [Mass/Vol] 1.11 mg/dL High 0.58-0.96 [facility] Comment on above: Order Comment: Cesar piper Type: BLOOD SPECIMENOrdering Facility: [facility] Address: [address] [place] [address] Performed By: #### C KCKMB, 91526-7, HSTNT, 55677-6 ####RENTON LABORATORYCLIA [id number] [address] Creatinine and Glomerular filtration rate.predicted panel (S/P/Bld) 55 mL/min/1.73m??? Low >=60 [facility] Comment on above: Order Comment: Cesar piper Type: BLOOD SPECIMENOrdering Facility: [facility] Address: [address] [place] [address] Result Comment: Sweta mated Glomerular Filtration Rate (eGFR) is calculated using the 2020 CKD-EPI creatinine equation. This equation utilizes serum creatinine, sex, and age as parameters. The creatinine assay has traceable calibration to isotope dilution-mass spectrometry. Refer to KDIGO guidelines for clinical interpretation. In patients with unstable renal function, e.g. those with acute kidney injury, the eGFR may not accurately reflect actual GFR. Performed By: #### C KCKMB, 18225-8, HSTNT, 94845-7 ####HAND LABORATORYCLIA [id number] [address] STATES OF [facility] Glucose [Mass/Vol] 114 mg/dL High 74-99 [facility] Comment on above: Order Comment: Cesar piper Type: BLOOD SPECIMENOrdering Facility: [facility] Address: [address] [place] [address] Result Comment: The [place] Diabetes Association (ADA) provides guidance for cutoff values for fasting glucose and random glucose. The ADA defines fasting as no caloric intake for at least 8 hours. Fasting plasma glucose results between 100 to 125 mg/dL indicate increased risk for diabetes (prediabetes).Fasting plasma glucose results greater than or equal to 126 mg/dL meet the criteria for diagnosis of diabetes. In the absence of unequivocal hyperglycemia, results should be confirmed by repeat testing. In a patient with classic symptoms of hyperglycemia or hyperglycemic crisis, random plasma glucose results greater than or equal to 200 mg/dL meet the criteria for diagnosis of diabetes.Reference: Standards of Medical Care in Diabetes 2016, [place] Diabetes Association. Diabetes Care. 2016.39(Suppl 1). Performed By: #### C MARIA DEL CARMEN, 43160-2, HSTNT, 21830-4 ####HAND LABORATORYCLIA [id number] [place] [address] [place] Potassium [Moles/Vol] 3.6 mmol/L Low 3.7-5.1 [facility] Comment on above: Order Comment: Speci men Type: BLOOD SPECIMENOrdering Facility: [facility] Address: [address] [place] [address] Performed By: #### C MARIA DEL CARMEN, 27770-7, HSTNT, 15446-3 ####HAND LABORATORYCLIA [id number] [place] [address] [place] Protein [Mass/Vol] 6.0 g/dL Low 6.3-8.0 [facility] Comment on above: Order Comment: Speci men Type: BLOOD SPECIMENOrdering Facility: [facility] Address: [address] [place] [address] Performed By: #### Gigi JOYCE, 19622-3, HSTNT, 90875-3 ####HAND LABORATORYCLIA [id number] [place] [address] [place] Sodium [Moles/Vol] 142 mmol/L Normal 136-144 [facility] Comment on above: Order Comment: Speci men Type: BLOOD SPECIMENOrdering Facility: [facility] Address: [address] [place] [address] Performed By: #### C MARIA DEL CARMEN, 91923-5, HSTNT, 92899-8 ####HAND LABORATORYCLIA [id number] [place] [address] [place] Urea nitrogen [Mass/Vol] 7 mg/dL Normal 7-21 [facility] Comment on above: Order Comment: Speci men Type: BLOOD SPECIMENOrdering Facility: [facility] Address: [address] [place] [address] Performed By: #### C KCKMB, 39562-0, HSTNT, 68672-8 ####HAND LABORATORYCLIA [id number] [place] [address] [place] HIGH SENSITIVITY TROPONIN To n 12-23-2023 Troponin T.cardiac High sensitivity method [Mass/Vol] 18 ng/L High <12 [facility] Comment on above: Order Comment: Cesar piper Type: BLOOD SPECIMENOrdering Facility: [facility] Address: [address] [place] [address] Result Comment: When assessing risk for acute coronary syndromes: In patients undergoing blood draw greater than or equal to 2 hours from symptom onset, with history of very low to moderate risk and non-ischemic ECG, an initial hs-Troponin T less than 12 ng/L AND a 1 hour delta hs-Troponin T less than 3 ng/L should be considered very low risk for 30 day MACE. Performed By: #### C KCKMB, 92729-5, HSTNT, 42366-9 ####HAND LABORATORYCLIA [id number] [address] [place] NT-proBNP [facility] 12-22 Natriuretic peptide.B prohormone N-Terminal [Mass/Vol] 2380 pg/mL High <125 [facility] Comment on above: Order Comment: Cesar piper Type: BLOOD SPECIMENOrdering Facility: [facility] Address: [address] [place] [address] Performed By: #### C KCKMB, 87358-2, HSTNT, 39994-1 ####HNAD LABORATORYCLIA [id number] [place] [address] [place] NURSING PROGon 12-23-2023 NURSING PROG Normal [facility] THERAPY NTon 12-23-2023 THERAPY NT Normal [facility] THERAPY NT Normal [facility] THERAPY NT Normal [facility] XR CHEST 2V FRONTAL/LATon XR CHEST 2V FRONTAL/LAT Normal [facility] CASE MANAGEMon 12-22-2023 CASE MANAGEM Normal [facility] CASE MANAGEM Normal [facility] CBC panel Auto (Bld)on 12-21 Erythrocyte distribution width (RBC) [Ratio] 12.9 % Normal 11.5-15.0 [facility] Comment on above: Order Comment: Speci men Type: BLOOD SPECIMENOrdering Facility: [facility] Address: [address] [place] [address] Performed By: #### 5 8410-2 ####HAND LABORATORYCLIA [id number] [address] OF [facility] Hematocrit (Bld) [Volume fraction] 32.2 % Low 36.0-46.0 [facility] Comment on above: Order Comment: Speci men Type: BLOOD SPECIMENOrdering Facility: [facility] Address: [address] [place] [address] Performed By: #### 5 8410-2 ####HAND LABORATORYCLIA [id number] [address] Hemoglobin (Bld) [Mass/Vol] 9.7 g/dL Low 11.5-15.5 [facility] Comment on above: Order Comment: Speci men Type: BLOOD SPECIMENOrdering Facility: [facility] Address: [address] [place] [address] Performed By: #### 5 8410-2 ####HAND LABORATORYCLIA [id number] [address] MCH (RBC) [Entitic mass] 28.9 pg Normal 26.0-34.0 [facility] Comment on above: Order Comment: Speci men Type: BLOOD SPECIMENOrdering Facility: [facility] Address: [address] [place] [address] Performed By: #### 5 8410-2 ####HAND LABORATORYCLIA [id number] [address] STATES [facility] MCHC (RBC) [Mass/Vol] 30.1 g/dL Low 30.5-36.0 [facility] Comment on above: Order Comment: Speci men Type: BLOOD SPECIMENOrdering Facility: [facility] Address: [address] [place] [address] Performed By: #### 5 8410-2 ####HAND LABORATORYCLIA [id number] [place] [address] [place] MCV (RBC) [Entitic vol] 95.8 fL Normal 80.0-100.0 [facility] Comment on above: Order Comment: Speci men Type: BLOOD SPECIMENOrdering Facility: [facility] Address: [address] [place] [address] Performed By: #### 5 8410-2 ####HAND LABORATORYCLIA [id number] [place] [address] [place] Nucleated RBC (Bld) [#/Vol] 10*3/uL Normal <0.01 [facility] Comment on above: Order Comment: Speci men Type: BLOOD SPECIMENOrdering Facility: [facility] Address: [address] [place] [address] Performed By: #### 5 8410-2 ####HAND LABORATORYCLIA [id number] [place] [address] [place] Platelet mean volume (Bld) [Entitic vol] 9.2 fL Normal 9.0-12.7 [facility] Comment on above: Order Comment: Speci men Type: BLOOD SPECIMENOrdering Facility: [facility] Address: [address] [place] [address] Performed By: #### 5 8410-2 ####HAND LABORATORYCLIA [id number] [place] [address] [place] Platelets (Bld) [#/Vol] 357 10*3/uL Normal 150-400 [facility] Comment on above: Order Comment: Speci men Type: BLOOD SPECIMENOrdering Facility: [facility] Address: [address] [place] [address] Performed By: #### 5 8410-2 ####HAND LABORATORYCLIA [id number] [place] [address] [place] RBC (Bld) [#/Vol] 3.36 10*6/uL Low 3.90-5.20 [facility] Comment on above: Order Comment: Speci men Type: BLOOD SPECIMENOrdering Facility: [facility] Address: [address] [place] [address] Performed By: #### 5 8410-2 ####HAND LABORATORYCLIA [id number] [place] [address] [place] WBC (Bld) [#/Vol] 11.82 10*3/uL High 3.70-11.00 [facility] Comment on above: Order Comment: Speci men Type: BLOOD SPECIMENOrdering Facility: [facility] Address: [address] [place] [address] Performed By: #### 5 8410-2 ####RENTON LABORATORYCLIA [id number] [place] [address] [place] CONSULT PROGon 12-22-2023 CONSULT PRO Normal [facility] CONSULT PRO Normal [facility] CONSULT PROG Normal [facility] CONSULT PRO Normal [facility] Comprehensive metabolic 2000 panelon 12-22-2023 Albumin [Mass/Vol] 3.0 g/dL Low 3.9-4.9 [facility] Comment on above: Order Comment: Speci men Type: BLOOD SPECIMENOrdering Facility: [facility] Address: [address] [place] [address] Performed By: #### 2 4323-8, HSTNT ####RENTON LABORATORYCLIA [id number] [place] [address] [place] ALP [Catalytic activity/Vol] 178 U/L High 34-123 [facility] Comment on above: Order Comment: Speci men Type: BLOOD SPECIMENOrdering Facility: [facility] Address: [address] [place] [address] Performed By: #### 2 4323-8, HSTNT ####HAND LABORATORYCLIA [id number] [place] [address] [place] ALT [Catalytic activity/Vol] 7 U/L Normal 7-38 [facility] Comment on above: Order Comment: Speci men Type: BLOOD SPECIMENOrdering Facility: [facility] Address: [address] [place] [address] Performed By: #### 2 4323-8, HSTNT ####HAND LABORATORYCLIA [id number] [place] [address] [place] Anion gap [Moles/Vol] 11 mmol/L Normal 9-18 [facility] Comment on above: Order Comment: Speci men Type: BLOOD SPECIMENOrdering Facility: [facility] Address: [address] [place] [address] Performed By: #### 2 4323-8, HSTNT ####HAND LABORATORYCLIA [id number] [place] [address] [place] AST [Catalytic activity/Vol] 9 U/L Low 13-35 [facility] Comment on above: Order Comment: Speci men Type: BLOOD SPECIMENOrdering Facility: [facility] Address: [address] [place] [address] Performed By: #### 2 4323-8, HSTNT ####HAND LABORATORYCLIA [id number] [place] [address] [place] Bilirubin [Mass/Vol] 0.3 mg/dL Normal 0.2-1.3 [facility] Comment on above: Order Comment: Speci men Type: BLOOD SPECIMENOrdering Facility: [facility] Address: [address] [place] [address] Performed By: #### 2 4323-8, HSTNT ####HAND LABORATORYCLIA [id number] [place] [address] [place] Calcium [Mass/Vol] 8.8 mg/dL Normal 8.5-10.2 [facility] Comment on above: Order Comment: Speci men Type: BLOOD SPECIMENOrdering Facility: [facility] Address: [address] [place] [address] Performed By: #### 2 4323-8, HSTNT ####HAND LABORATORYCLIA [id number] [place] [address] [place] Chloride [Moles/Vol] 103 mmol/L Normal 97-105 [facility] Comment on above: Order Comment: Speci men Type: BLOOD SPECIMENOrdering Facility: [facility] Address: [address] [place] [address] Performed By: #### 2 4323-8, HSTNT ####HAND LABORATORYCLIA [id number] [place] [address] [place] CO2 [Moles/Vol] 28 mmol/L Normal 22-30 [facility] Comment on above: Order Comment: Cesar piper Type: BLOOD SPECIMENOrdering Facility: [facility] Address: [address] [place] [address] Performed By: #### 2 4323-8, HSTNT ####HAND LABORATORYCLIA [id number] [address] STATES OF [facility] Creatinine [Mass/Vol] 0.87 mg/dL Normal 0.58-0.96 [facility] Comment on above: Order Comment: Cesar men Type: BLOOD SPECIMENOrdering Facility: [facility] Address: [address] [place] [address] Performed By: #### 2 4323-8, HSTNT ####HAND LABORATORYCLIA [id number] [address] Creatinine and Glomerular filtration rate.predicted panel (S/P/Bld) 73 mL/min/1.73m??? Normal >=60 [facility] Comment on above: Order Comment: Cesar piper Type: BLOOD SPECIMENOrdering Facility: [facility] Address: [address] [place] [address] Result Comment: Sweta mated Glomerular Filtration Rate (eGFR) is calculated using the 2020 CKD-EPI creatinine equation. This equation utilizes serum creatinine, sex, and age as parameters. The creatinine assay has traceable calibration to isotope dilution-mass spectrometry. Refer to KDIGO guidelines for clinical interpretation. In patients with unstable renal function, e.g. those with acute kidney injury, the eGFR may not accurately reflect actual GFR. Performed By: #### 2 4323-8, HSTNT ####HAND LABORATORYCLIA [id number] [address] STATES OF [facility] Glucose [Mass/Vol] 97 mg/dL Normal 74-99 [facility] Comment on above: Order Comment: Cesar feliz Type: BLOOD SPECIMENOrdering Facility: [facility] Address: [address] [place] [address] Result Comment: The [place] Diabetes Association (ADA) provides guidance for cutoff values for fasting glucose and random glucose. The ADA defines fasting as no caloric intake for at least 8 hours. Fasting plasma glucose results between 100 to 125 mg/dL indicate increased risk for diabetes (prediabetes).Fasting plasma glucose results greater than or equal to 126 mg/dL meet the criteria for diagnosis of diabetes. In the absence of unequivocal hyperglycemia, results should be confirmed by repeat testing. In a patient with classic symptoms of hyperglycemia or hyperglycemic crisis, random plasma glucose results greater than or equal to 200 mg/dL meet the criteria for diagnosis of diabetes.Reference: Standards of Medical Care in Diabetes 2016, [place] Diabetes Association. Diabetes Care. 2016.39(Suppl 1). Performed By: #### 2 4323-8, HSTNT ####HAND LABORATORYCLIA [id number] [place] [address] [place] Potassium [Moles/Vol] 3.8 mmol/L Normal 3.7-5.1 [facility] Comment on above: Order Comment: Holai men Type: BLOOD SPECIMENOrdering Facility: [facility] Address: [address] [place] [address] Performed By: #### 2 4323-8, HSTNT ####HAND LABORATORYCLIA [id number] [place] [address] [place] Protein [Mass/Vol] 6.2 g/dL Low 6.3-8.0 [facility] Comment on above: Order Comment: Holai men Type: BLOOD SPECIMENOrdering Facility: [facility] Address: [address] [place] [address] Performed By: #### 2 4323-8, HSTNT ####HAND LABORATORYCLIA [id number] [place] [address] [place] Sodium [Moles/Vol] 142 mmol/L Normal 136-144 [facility] Comment on above: Order Comment: Speci men Type: BLOOD SPECIMENOrdering Facility: [facility] Address: [address] [place] [address] Performed By: #### 2 4323-8, HSTNT ####HAND LABORATORYCLIA [id number] [place] [address] [place] Urea nitrogen [Mass/Vol] 8 mg/dL Normal 7-21 [facility] Comment on above: Order Comment: Speci men Type: BLOOD SPECIMENOrdering Facility: [facility] Address: [address] [place] [address] Performed By: #### 2 4323-8, HSTNT ####HAND LABORATORYCLIA [id number] [address] [place] HIGH SENSITIVITY TROPONIN To n 12-22-2023 Troponin T.cardiac High sensitivity method [Mass/Vol] 24 ng/L High <12 [facility] Comment on above: Order Comment: Cesar piper Type: BLOOD SPECIMENOrdering Facility: [facility] Address: [address] [place] [address] Result Comment: When assessing risk for acute coronary syndromes: In patients undergoing blood draw greater than or equal to 2 hours from symptom onset, with history of very low to moderate risk and non-ischemic ECG, an initial hs-Troponin T less than 12 ng/L AND a 1 hour delta hs-Troponin T less than 3 ng/L should be considered very low risk for 30 day MACE. Performed By: #### 2 4323-8, HSTNT ####HAND LABORATORYCLIA [id number] [address] [place] NURSING PROGon 12-22-2023 NURSING PROG Normal [facility] Vancomycin Speedwell SerPl-mCncon 12-22-2023 Vancomycin random [Mass/Vol] 19.3 ug/mL Normal 10.0-20.0 [facility] Comment on above: Order Comment: Cesar piper Type: BLOOD SPECIMENOrdering Facility: [facility] Address: [address] [place] [address] Result Comment: Refe rence ranges and high/low indicator flags are provided as general guidelines only. The treating physician must determine appropriate target levels/dosing based on the specific clinical situation. Performed By: #### 4 091-5 ####HAND LABORATORYCLIA [id number] [place] [id number] [place] CBC panel Auto (Bld)on 12-20 Erythrocyte distribution width (RBC) [Ratio] 12.6 % Normal 11.5-15.0 [facility] Comment on above: Order Comment: Cesar piper Type: BLOOD SPECIMENOrdering Facility: [facility] Address: [address] [place] [address] Performed By: #### 5 8410-2 ####HAND LABORATORYCLIA [id number] [address] Hematocrit (Bld) [Volume fraction] 30.5 % Low 36.0-46.0 [facility] Comment on above: Order Comment: Speci men Type: BLOOD SPECIMENOrdering Facility: [facility] Address: [address] [place] [address] Performed By: #### 5 8410-2 ####HAND LABORATORYCLIA [id number] [address] Hemoglobin (Bld) [Mass/Vol] 9.4 g/dL Low 11.5-15.5 [facility] Comment on above: Order Comment: Speci men Type: BLOOD SPECIMENOrdering Facility: [facility] Address: [address] [place] [address] Performed By: #### 5 8410-2 ####HAND LABORATORYCLIA [id number] [address] MCH (RBC) [Entitic mass] 29.7 pg Normal 26.0-34.0 [facility] Comment on above: Order Comment: Speci men Type: BLOOD SPECIMENOrdering Facility: [facility] Address: [address] [place] [address] Performed By: #### 5 8410-2 ####HAND LABORATORYCLIA [id number] [address] MCHC (RBC) [Mass/Vol] 30.8 g/dL Normal 30.5-36.0 [facility] Comment on above: Order Comment: Speci men Type: BLOOD SPECIMENOrdering Facility: [facility] Address: [address] [place] [address] Performed By: #### 5 8410-2 ####HAND LABORATORYCLIA [id number] [address] MCV (RBC) [Entitic vol] 96.2 fL Normal 80.0-100.0 [facility] Comment on above: Order Comment: Speci men Type: BLOOD SPECIMENOrdering Facility: [facility] Address: [address] [place] [address] Performed By: #### 5 8410-2 ####HAND LABORATORYCLIA [id number] [place] [address] [place] Nucleated RBC (Bld) [#/Vol] 10*3/uL Normal <0.01 [facility] Comment on above: Order Comment: Speci men Type: BLOOD SPECIMENOrdering Facility: [facility] Address: [address] [place] [address] Performed By: #### 5 8410-2 ####RENTON LABORATORYCLIA [id number] [place] [address] [place] Platelet mean volume (Bld) [Entitic vol] 9.4 fL Normal 9.0-12.7 [facility] Comment on above: Order Comment: Speci men Type: BLOOD SPECIMENOrdering Facility: [facility] Address: [address] [place] [address] Performed By: #### 5 8410-2 ####RENTON LABORATORYCLIA [id number] [place] [address] [place] Platelets (Bld) [#/Vol] 304 10*3/uL Normal 150-400 [facility] Comment on above: Order Comment: Speci men Type: BLOOD SPECIMENOrdering Facility: [facility] Address: [address] [place] [address] Performed By: #### 5 8410-2 ####HAND LABORATORYCLIA [id number] [place] [address] [place] RBC (Bld) [#/Vol] 3.17 10*6/uL Low 3.90-5.20 [facility] Comment on above: Order Comment: Speci men Type: BLOOD SPECIMENOrdering Facility: [facility] Address: [address] [place] [address] Performed By: #### 5 8410-2 ####HAND LABORATORYCLIA [id number] [place] [address] [place] WBC (Bld) [#/Vol] 10.31 10*3/uL Normal 3.70-11.00 [facility] Comment on above: Order Comment: Speci men Type: BLOOD SPECIMENOrdering Facility: [facility] Address: [address] [place] [address] Performed By: #### 5 8410-2 ####HAND LABORATORYCLIA [id number] [place] [address] [place] CK TOTAL AND CK-MBon 024 CK [Catalytic activity/Vol] 12 U/L Low 42-196 [facility] Comment on above: Order Comment: Speci men Type: BLOOD SPECIMENOrdering Facility: [facility] Address: [address] [place] [address] Performed By: #### H STNT, CKCKMB ####HAND LABORATORYCLIA [id number] [place] [address] [place] CK.MB [Mass/Vol] 1.5 ng/mL Normal <4.4 [facility] Comment on above: Order Comment: Speci men Type: BLOOD SPECIMENOrdering Facility: [facility] Address: [address] [place] [address] Performed By: #### H STNT, CKCKMB ####HAND LABORATORYCLIA [id number] [address] [place] CK.MB [Ratio] Normal [facility] Comment on above: Order Comment: Speci men Type: BLOOD SPECIMENOrdering Facility: [facility] Address: [address] [place] [address] Result Comment: CK M B % not reported with CK <100 U/L. Performed By: #### H STNT, CKCKMB ####HAND LABORATORYCLIA [id number] [place] [address] [place] CONSULT PROGon 12-21-2023 CONSULT PROG Normal [facility] CONSULT PROG Normal [facility] CONSULT PROG Normal [facility] CONSULT PROG Normal [facility] Comprehensive metabolic 2000 panelon 12-21-2023 Albumin [Mass/Vol] 3.0 g/dL Low 3.9-4.9 [facility] Comment on above: Order Comment: Speci men Type: BLOOD SPECIMENOrdering Facility: [facility] Address: [address] [place], [place] [address], [place] [address] Performed By: #### 2 4323-8 ####HAND LABORATORYCLIA [id number] [address] ALP [Catalytic activity/Vol] 179 U/L High 34-123 [facility] Comment on above: Order Comment: Speci men Type: BLOOD SPECIMENOrdering Facility: [facility] Address: [address] [place] [address] Performed By: #### 2 4323-8 ####HAND LABORATORYCLIA [id number] [address] ALT [Catalytic activity/Vol] 8 U/L Normal 7-38 [facility] Comment on above: Order Comment: Speci men Type: BLOOD SPECIMENOrdering Facility: [facility] Address: [address] [place] [address] Performed By: #### 2 4323-8 ####HAND LABORATORYCLIA [id number] [address] STATES [facility] Anion gap [Moles/Vol] 6 mmol/L Low 9-18 [facility] Comment on above: Order Comment: Speci men Type: BLOOD SPECIMENOrdering Facility: [facility] Address: [address] [place] [address] Performed By: #### 2 4323-8 ####HAND LABORATORYCLIA [id number] [address] AST [Catalytic activity/Vol] 9 U/L Low 13-35 [facility] Comment on above: Order Comment: Speci men Type: BLOOD SPECIMENOrdering Facility: [facility] Address: [address] [place] [address] Performed By: #### 2 4323-8 ####HAND LABORATORYCLIA [id number] [address] [place] Bilirubin [Mass/Vol] 0.2 mg/dL Normal 0.2-1.3 [facility] Comment on above: Order Comment: Speci men Type: BLOOD SPECIMENOrdering Facility: [facility] Address: [address] [place] [address] Performed By: #### 2 4323-8 ####HAND LABORATORYCLIA [id number] [place] [address] [place] Calcium [Mass/Vol] 8.9 mg/dL Normal 8.5-10.2 [facility] Comment on above: Order Comment: Speci men Type: BLOOD SPECIMENOrdering Facility: [facility] Address: [address] [place] [address] Performed By: #### 2 4323-8 ####HAND LABORATORYCLIA [id number] [place] [address] [place] Chloride [Moles/Vol] 106 mmol/L High 97-105 [facility] Comment on above: Order Comment: Speci men Type: BLOOD SPECIMENOrdering Facility: [facility] Address: [address] [place] [address] Performed By: #### 2 4323-8 ####HAND LABORATORYCLIA [id number] [place] [address] [place] CO2 [Moles/Vol] 31 mmol/L High 22-30 [facility] Comment on above: Order Comment: Speci men Type: BLOOD SPECIMENOrdering Facility: [facility] Address: [address] [place] [address] Performed By: #### 2 4323-8 ####HAND LABORATORYCLIA [id number] [place] [address] [place] Creatinine [Mass/Vol] 0.85 mg/dL Normal 0.58-0.96 [facility] Comment on above: Order Comment: Speci men Type: BLOOD SPECIMENOrdering Facility: [facility] Address: [address] [place] [address] Performed By: #### 2 4323-8 ####HAND LABORATORYCLIA [id number] [address] [place] Creatinine and Glomerular filtration rate.predicted panel (S/P/Bld) 75 mL/min/1.73m??? Normal >=60 [facility] Comment on above: Order Comment: Speci men Type: BLOOD SPECIMENOrdering Facility: [facility] Address: [address] [place], [place] [address] Result Comment: Sweta mated Glomerular Filtration Rate (eGFR) is calculated using the 2020 CKD-EPI creatinine equation. This equation utilizes serum creatinine, sex, and age as parameters. The creatinine assay has traceable calibration to isotope dilution-mass spectrometry. Refer to KDIGO guidelines for clinical interpretation. In patients with unstable renal function, e.g. those with acute kidney injury, the eGFR may not accurately reflect actual GFR. Performed By: #### 2 4323-8 ####RENTON LABORATORYCLIA [id number] [place] [id number] [place] Glucose [Mass/Vol] 112 mg/dL High 74-99 [facility] Comment on above: Order Comment: Cesar piper Type: BLOOD SPECIMENOrdering Facility: [facility] Address: [address] [place] [address] Result Comment: The [place] Diabetes Association (ADA) provides guidance for cutoff values for fasting glucose and random glucose. The ADA defines fasting as no caloric intake for at least 8 hours. Fasting plasma glucose results between 100 to 125 mg/dL indicate increased risk for diabetes (prediabetes).Fasting plasma glucose results greater than or equal to 126 mg/dL meet the criteria for diagnosis of diabetes. In the absence of unequivocal hyperglycemia, results should be confirmed by repeat testing. In a patient with classic symptoms of hyperglycemia or hyperglycemic crisis, random plasma glucose results greater than or equal to 200 mg/dL meet the criteria for diagnosis of diabetes.Reference: Standards of Medical Care in Diabetes 2016, [place] Diabetes Association. Diabetes Care. 2016.39(Suppl 1). Performed By: #### 2 4323-8 ####RENTON LABORATORYCLIA [id number] [place] [id number] [place] Potassium [Moles/Vol] 3.4 mmol/L Low 3.7-5.1 [facility] Comment on above: Order Comment: Cesar piper Type: BLOOD SPECIMENOrdering Facility: [facility] Address: [address] [place] [id number] Performed By: #### 2 4323-8 ####RENTON LABORATORYCLIA [id number] [place] [address] [place] Protein [Mass/Vol] 6.0 g/dL Low 6.3-8.0 [facility] Comment on above: Order Comment: Speci men Type: BLOOD SPECIMENOrdering Facility: [facility] Address: [address] [place] [address] Performed By: #### 2 4323-8 ####HAND LABORATORYCLIA [id number] [address] [place] Sodium [Moles/Vol] 143 mmol/L Normal 136-144 [facility] Comment on above: Order Comment: Speci men Type: BLOOD SPECIMENOrdering Facility: [facility] Address: [address] [place] [address] Performed By: #### 2 4323-8 ####HAND LABORATORYCLIA [id number] [address] [place] Urea nitrogen [Mass/Vol] 14 mg/dL Normal 7-21 [facility] Comment on above: Order Comment: Speci men Type: BLOOD SPECIMENOrdering Facility: [facility] Address: [address] [place] [address] Performed By: #### 2 4323-8 ####HAND LABORATORYCLIA [id number] [address] [place] ECG COMPLETEon 12-21-2023 ECG COMPLETE Normal [facility] HIGH SENSITIVITY TROPONIN To n 12-21-2023 Troponin T.cardiac High sensitivity method [Mass/Vol] 20 ng/L High <12 [facility] Comment on above: Order Comment: Speci men Type: BLOOD SPECIMENOrdering Facility: [facility] Address: [address] [place] [address] Result Comment: When assessing risk for acute coronary syndromes: In patients undergoing blood draw greater than or equal to 2 hours from symptom onset, with history of very low to moderate risk and non-ischemic ECG, an initial hs-Troponin T less than 12 ng/L AND a 1 hour delta hs-Troponin T less than 3 ng/L should be considered very low risk for 30 day MACE. Performed By: #### H STNT ####HAND LABORATORYCLIA [id number] [address] [place] Troponin T.cardiac High sensitivity method [Mass/Vol] 17 ng/L High <12 [facility] Comment on above: Order Comment: Cesar piper Type: BLOOD SPECIMENOrdering Facility: [facility] Address: [address] [place] [address] Result Comment: When assessing risk for acute coronary syndromes: In patients undergoing blood draw greater than or equal to 2 hours from symptom onset, with history of very low to moderate risk and non-ischemic ECG, an initial hs-Troponin T less than 12 ng/L AND a 1 hour delta hs-Troponin T less than 3 ng/L should be considered very low risk for 30 day MACE. Performed By: #### H STNT ####HAND LABORATORYCLIA [id number] [place] [address] [place] Troponin T.cardiac High sensitivity method [Mass/Vol] 17 ng/L High <12 [facility] Comment on above: Order Comment: Cesar piper Type: BLOOD SPECIMENOrdering Facility: [facility] Address: [address] [place] [address] Result Comment: When assessing risk for acute coronary syndromes: In patients undergoing blood draw greater than or equal to 2 hours from symptom onset, with history of very low to moderate risk and non-ischemic ECG, an initial hs-Troponin T less than 12 ng/L AND a 1 hour delta hs-Troponin T less than 3 ng/L should be considered very low risk for 30 day MACE. Performed By: #### H STNT, CKCKMB ####HAND LABORATORYCLIA [id number] [place] [address] [place] .GFRon 12-20-2023 GFR 55 ml/min/1.73sqm Normal [facility] ([place]) Comment on above: Result Comment: GFR Population mean for , Non- Americans Ages 20-29 = 116 mL/min/1.73 sq.m. Ages 30-39 = 107 mL/min/1.73 sq.m. Ages 40-49 = 99 mL/min/1.73 sq.m. Ages 50-59 = 93 mL/min/1.73 sq.m. Ages 60-69 = 85 mL/min/1.73 sq.m. Ages 70+ = 75 mL/min/1.73 sq.m. Chronic Kidney Disease: Less than 60 mL/min/1.73 square meters End Stage Renal Disease: Less than 15 mL/min/1.73 square meters Performed By: #### L AC, CBC, ADSAADIA, EUSEBIO, COOPER, TROPHS, CMP, GFR #### Nora [address] [address] GFR Non- 45 ml/min/1.73sqm Normal [facility] ([place]) Comment on above: Result Comment: GFR Population mean for , Non- Americans Ages 20-29 = 116 mL/min/1.73 sq.m. Ages 30-39 = 107 mL/min/1.73 sq.m. Ages 40-49 = 99 mL/min/1.73 sq.m. Ages 50-59 = 93 mL/min/1.73 sq.m. Ages 60-69 = 85 mL/min/1.73 sq.m. Ages 70+ = 75 mL/min/1.73 sq.m. Chronic Kidney Disease: Less than 60 mL/min/1.73 square meters End Stage Renal Disease: Less than 15 mL/min/1.73 square meters Performed By: #### L AC, CBC, ADIFF, EUSEBIO, COOPER, TROPHS, CMP, GFR #### [address] [address] ALLIED HEALTHon 12-20-2023 ALLIED HEALTH Normal [facility] Bacteria Bld Culton 12-20-19 24 Bacteria identified Cx Nom (Bld) CULTURE, BLOOD: No growth 5 days Normal [facility] Comment on above: Performed By: #### 6 00-7 ####[facility] LABCLIA [id number] [place] [address] [place] CASE MGT INIT ASSESon 2023 CASE MGT INIT [facility] CBC panel Auto (Bld)on 12-19 Erythrocyte distribution width (RBC) [Ratio] 12.9 % Normal 11.5-15.0 [facility] Comment on above: Order Comment: Speci men Type: BLOOD SPECIMENOrdering Facility: [facility] Address: [address] [place] [address] Performed By: #### 5 8410-2 ####HAND LABORATORYCLIA [id number] [address] Hematocrit (Bld) [Volume fraction] 33.6 % Low 36.0-46.0 [facility] Comment on above: Order Comment: Speci men Type: BLOOD SPECIMENOrdering Facility: [facility] Address: [address] [place] [address] Performed By: #### 5 8410-2 ####HAND LABORATORYCLIA [id number] [address] [place] Hemoglobin (Bld) [Mass/Vol] 10.7 g/dL Low 11.5-15.5 [facility] Comment on above: Order Comment: Speci men Type: BLOOD SPECIMENOrdering Facility: [facility] Address: [address] [place] [address] Performed By: #### 5 8410-2 ####HAND LABORATORYCLIA [id number] [address] MCH (RBC) [Entitic mass] 30.3 pg Normal 26.0-34.0 [facility] Comment on above: Order Comment: Speci men Type: BLOOD SPECIMENOrdering Facility: [facility] Address: [address] [place] [address] Performed By: #### 5 8410-2 ####HAND LABORATORYCLIA [id number] [address] MCHC (RBC) [Mass/Vol] 31.8 g/dL Normal 30.5-36.0 [facility] Comment on above: Order Comment: Speci men Type: BLOOD SPECIMENOrdering Facility: [facility] Address: [address] [place] [address] Performed By: #### 5 8410-2 ####HAND LABORATORYCLIA [id number] [address] MCV (RBC) [Entitic vol] 95.2 fL Normal 80.0-100.0 [facility] Comment on above: Order Comment: Speci men Type: BLOOD SPECIMENOrdering Facility: [facility] Address: [address] [place] [address] Performed By: #### 5 8410-2 ####HAND LABORATORYCLIA [id number] [place] [address] [place] Nucleated RBC (Bld) [#/Vol] 10*3/uL Normal <0.01 [facility] Comment on above: Order Comment: Speci men Type: BLOOD SPECIMENOrdering Facility: [facility] Address: [address] [place] [address] Performed By: #### 5 8410-2 ####HAND LABORATORYCLIA [id number] [place] [address] [place] Platelet mean volume (Bld) [Entitic vol] 9.3 fL Normal 9.0-12.7 [facility] Comment on above: Order Comment: Speci men Type: BLOOD SPECIMENOrdering Facility: [facility] Address: [address] [place] [address] Performed By: #### 5 8410-2 ####HAND LABORATORYCLIA [id number] [place] [address] [place] Platelets (Bld) [#/Vol] 298 10*3/uL Normal 150-400 [facility] Comment on above: Order Comment: Speci men Type: BLOOD SPECIMENOrdering Facility: [facility] Address: [address] [place] [address] Performed By: #### 5 8410-2 ####HAND LABORATORYCLIA [id number] [place] [address] [place] RBC (Bld) [#/Vol] 3.53 10*6/uL Low 3.90-5.20 [facility] Comment on above: Order Comment: Speci men Type: BLOOD SPECIMENOrdering Facility: [facility] Address: [address] [place] [address] Performed By: #### 5 8410-2 ####HAND LABORATORYCLIA [id number] [place] [address] [place] WBC (Bld) [#/Vol] 9.13 10*3/uL Normal 3.70-11.00 [facility] Comment on above: Order Comment: Speci men Type: BLOOD SPECIMENOrdering Facility: [facility] Address: [facility] [place] [address] Performed By: #### 5 8410-2 ####HAND LABORATORYCLIA [id number] [place] [address] [place] CMPon 12-20-2023 Albumin Level 2.7 G/dL Low 3.4-4.8 [facility] ([place]) Comment on above: Performed By: #### L AC, CBC, ADIFF, ANEU, MDW, TROPHS, CMP, GFR #### [address] [address] Albumin/Globulin [Mass ratio] 0.6 {ratio} Low 1.1-2.5 [facility] ([place]) Comment on above: Performed By: #### L AC, CBC, ADIFF, ANEU, MDW, TROPHS, CMP, GFR #### [address] [address] ALP [Catalytic activity/Vol] 263 U/L High 40-135 [facility] ([place]) Comment on above: Performed By: #### L AC, CBC, ADIFF, ANEU, MDW, TROPHS, CMP, GFR #### [address] [address] ALT [Catalytic activity/Vol] 21 U/L Normal 14-59 [facility] ([place]) Comment on above: Performed By: #### L AC, CBC, ADIFF, ANEU, MDW, TROPHS, CMP, GFR #### [address] [address] AST [Catalytic activity/Vol] 15 U/L Normal 10-40 [facility] ([place]) Comment on above: Performed By: #### L AC, CBC, ADIFF, ANEU, MDW, TROPHS, CMP, GFR #### [address] [address] Bili Total 0.4 mg/dL Normal 0.2-1.0 [facility] ([place]) Comment on above: Result Comment: Use of this assay is not recommended for patients undergoing treatment with eltrombopag due to the potential for falsely elevated results. Performed By: #### L AC, CBC, ADIFF, ANEU, MDW, TROPHS, CMP, GFR #### [address] [address] BUN/Creatinine Ratio 8 ratio Normal 7-27 [facility] ([place]) Comment on above: Performed By: #### L AC, CBC, ADIFF, ANEU, MDW, TROPHS, CMP, GFR #### [address] [address] Calcium [Mass/Vol] 8.7 mg/dL Normal 8.4-10.2 [facility] ([place]) Comment on above: Performed By: #### L AC, CBC, ADIFF, ANEU, MDW, TROPHS, CMP, GFR #### [address] [address] Chloride [Moles/Vol] 102 mmol/L Normal 98-107 [facility] ([place]) Comment on above: Performed By: #### L AC, CBC, ADIFF, ANEU, MDW, TROPHS, CMP, GFR #### [address] [address] CO2 [Moles/Vol] 32 mmol/L High 23-31 [facility] ([place]) Comment on above: Performed By: #### L AC, CBC, ADIFF, ANEU, MDW, TROPHS, CMP, GFR #### [address] [address] Creatinine [Mass/Vol] 1.19 mg/dL High 0.55-1.02 [facility] ([place]) Comment on above: Performed By: #### L AC, CBC, ADIFF, ANEU, MDW, TROPHS, CMP, GFR #### [address] [address] Electrolyte Balance 5.0 mEq/L Normal 4.0-15.0 [facility] ([place]) Comment on above: Performed By: #### L AC, CBC, ADIFF, ANEU, MDW, TROPHS, CMP, GFR #### [address] [address] Globulin 4.2 G/dL Normal [facility] ([place]) Comment on above: Performed By: #### L AC, CBC, ADIFF, EUSEBIO, W, TROPHS, CMP, GFR #### [address] [address] Glucose [Mass/Vol] 139 mg/dL High 80-115 [facility] ([place]) Comment on above: Performed By: #### L AC, CBC, ADIFF, EUSEBIO, MDW, TROPHS, CMP, GFR #### [address] [address] Potassium [Moles/Vol] 3.8 mmol/L Normal 3.5-5.1 [facility] ([place]) Comment on above: Performed By: #### L AC, CBC, ADIFF, EUSEBIO, MDW, TROPHS, CMP, GFR #### [address] [address] Sodium [Moles/Vol] 139 mmol/L Normal 136-145 [facility] ([place]) Comment on above: Performed By: #### L AC, CBC, ADSAADIA, EUSEBIO, W, TROPHS, CMP, GFR #### [address] [address] Total Protein 6.9 G/dL Normal 6.4-8.2 [facility] ([place]) Comment on above: Performed By: #### L AC, CBC, ADIFF, EUSEBIO, MDW, TROPHS, CMP, GFR #### [address] [address] Urea nitrogen [Mass/Vol] 10 mg/dL Normal 7-18 [facility] ([place]) Comment on above: Performed By: #### L AC, CBC, ADIFF, EUSEBIO, MDW, TROPHS, CMP, GFR #### [address] [address] CONSULTon 12-20-2023 CONSULT [facility] CONSULT [facility] CONSULT [facility] CONSULT PROGon 12-20-2023 CONSULT PROG [facility] CT ABD/PELVIS W/ IV CONTRAST ONLYon 12-20-2023 CT ABD/PELVIS W/ IV CONTRAST ONLY ORIGINAL EXAMINATION: CT OF THE ABDOMEN AND PELVIS WITH CONTRAST 12/19/2023 10:40 pm TECHNIQUE: CT of the abdomen and pelvis was performed with the administration of intravenous contrast. Multiplanar reformatted images are provided for review. Automated exposure control, iterative reconstruction, and/or weight based adjustment of the mA/kV was utilized to reduce the radiation dose to as low as reasonably achievable. COMPARISON: CT abdomen pelvis without contrast 11/10/2015. HISTORY: ORDERING SYSTEM PROVIDED HISTORY: Reason for Exam: Abd Pain FINDINGS: Interstitial changes and atelectasis at the bilateral lung bases. Liver is within normal limits for size and demonstrates a smooth contour. At the gallbladder fossa, inflammatory changes are appreciated with perihepatic fluid collections as well as locule of air. These collections measure up to 2.3 cm in thickness and extending inferiorly to the tip of the right hepatic lobe. The spleen, pancreas and adrenal glands are unremarkable. The kidneys are within normal limits for size and demonstrate symmetric parenchymal enhancement. Nonobstructing renal calculi measuring up to 4 mm are appreciated in the left. No hydroureteronephrosis is identified bilaterally. The urinary bladder is largely decompressed, limiting evaluation for wall thickening. A large hiatal hernia is incompletely visualized. Bowel gas is noted to the level of the sigmoid colon in a nonobstructed pattern. The appendix appears surgically absent. Diverticular appreciated within the descending and sigmoid colon without evidence of diverticulitis. Multiple prominent lymph nodes are appreciated about the kady hepatis. Fusiform infrarenal abdominal aortic aneurysm measuring up to 3.5 cm. Scattered mural thrombus and extensive atherosclerotic changes. A small amount inflammatory change and fluid is appreciated adjacent to the umbilicus, which may relate to recent surgery. Osseous structures demonstrate degenerative changes without acute abnormality. IMPRESSION: 1. Multiple locules of air and fluid collections at the gallbladder fossa and along the medial right hepatic capsule extending inferiorly to the level of Morison's pouch. Findings are concerning for post cholecystectomy changes with bile leak versus abscess. 2. Infrarenal abdominal aortic aneurysm measuring up to 3.5 cm. Recommend imaging follow-up in 2 years. 3. Nonobstructing left nephrolithiasis. Interpreted by: Yoandy Duenas Preliminary Report By: Yoandy Duenas Electronically signed By Yoandy Duenas Dictated Date: 12/19/2023 10:45:59 PM Prelim Date: 12/19/2023 11:05:33 PM Sign Date: 12/19/2023 11:05:33 PM Ordering Provider: MERLINE Mahoney [facility] ([place]) Comprehensive metabolic 2000 panelon 12-20-2023 Albumin [Mass/Vol] 3.3 g/dL Low 3.9-4.9 [facility] Comment on above: Order Comment: Speci men Type: BLOOD SPECIMENOrdering Facility: [facility] Address: [address] [place] [address] Performed By: #### 2 4323-8, 3040-3, 88132-5 ####HAND LABORATORYCLIA [id number] [place] [address] [place] ALP [Catalytic activity/Vol] 213 U/L High 34-123 [facility] Comment on above: Order Comment: Speci men Type: BLOOD SPECIMENOrdering Facility: [facility] Address: [address] [place] [address] Performed By: #### 2 4323-8, 3040-3, 94670-6 ####HAND LABORATORYCLIA [id number] [address] STATES [facility] ALT [Catalytic activity/Vol] 10 U/L Normal 7-38 [facility] Comment on above: Order Comment: Speci men Type: BLOOD SPECIMENOrdering Facility: [facility] Address: [address] [place] [address] Performed By: #### 2 4323-8, 3040-3, 53117-3 ####HAND LABORATORYCLIA [id number] [address] STATES [facility] Anion gap [Moles/Vol] 11 mmol/L Normal 9-18 [facility] Comment on above: Order Comment: Speci men Type: BLOOD SPECIMENOrdering Facility: [facility] Address: [address] [place] [address] Performed By: #### 2 4323-8, 3040-3, 24241-1 ####HAND LABORATORYCLIA [id number] [place] [address] [place] AST [Catalytic activity/Vol] 11 U/L Low 13-35 [facility] Comment on above: Order Comment: Speci men Type: BLOOD SPECIMENOrdering Facility: [facility] Address: [address] [facility] [place] [place] [address] Performed By: #### 2 4323-8, 3040-3, 11873-2 ####HAND LABORATORYCLIA [id number] [place] [address] [place] Bilirubin [Mass/Vol] 0.4 mg/dL Normal 0.2-1.3 [facility] Comment on above: Order Comment: Speci men Type: BLOOD SPECIMENOrdering Facility: [facility] Address: [address] [place] [address] Performed By: #### 2 4323-8, 3040-3, 12265-1 ####HAND LABORATORYCLIA [id number] [address] [place] Calcium [Mass/Vol] 9.2 mg/dL Normal 8.5-10.2 [facility] Comment on above: Order Comment: Speci men Type: BLOOD SPECIMENOrdering Facility: [facility] Address: [address] [place] [address] Performed By: #### 2 4323-8, 3040-3, 93608-5 ####HAND LABORATORYCLIA [id number] [address] [place] Chloride [Moles/Vol] 102 mmol/L Normal 97-105 [facility] Comment on above: Order Comment: Speci men Type: BLOOD SPECIMENOrdering Facility: [facility] Address: [address] [place] [address] Performed By: #### 2 4323-8, 3040-3, 97549-3 ####HAND LABORATORYCLIA [id number] [place] [address] [place] CO2 [Moles/Vol] 27 mmol/L Normal 22-30 [facility] Comment on above: Order Comment: Speci men Type: BLOOD SPECIMENOrdering Facility: [facility] Address: [address] [place] [address] Performed By: #### 2 4323-8, 3040-3, 83448-6 ####[facility] LABORATORYCLIA [id number] [place] [address] [place] [facility] Creatinine [Mass/Vol] 0.91 mg/dL Normal 0.58-0.96 [facility] Comment on above: Order Comment: Cesar piper Type: BLOOD SPECIMENOrdering Facility: [facility] Address: [address] [place] [address] Performed By: #### 2 4323-8, 3040-3, 48990-2 ####[facility] LABORATORYCLIA [id number] [place] [address] [facility] [place] Creatinine and Glomerular filtration rate.predicted panel (S/P/Bld) 69 mL/min/1.73m??? Normal >=60 [facility] Comment on above: Order Comment: [facility] Type: BLOOD SPECIMENOrdering Facility: [facility] Address: [address] [place] [address] Result Comment: Sweta mated Glomerular Filtration Rate (eGFR) is calculated using the 2020 CKD-EPI creatinine equation. This equation utilizes serum creatinine, sex, and age as parameters. The creatinine assay has traceable calibration to isotope dilution-mass spectrometry. Refer to KDIGO guidelines for clinical interpretation. In patients with unstable renal function, e.g. those with acute kidney injury, the eGFR may not accurately reflect actual GFR. Performed By: #### 2 4323-8, 3040-3, 98043-5 ####RENT[facility] LABORATORYCLIA [id number] [place] [id number] [place] Glucose [Mass/Vol] 183 mg/dL High 74-99 [facility] Comment on above: Order Comment: Cesar feliz Type: BLOOD SPECIMENOrdering Facility: [facility] Address: [address] [place] [address] Result Comment: The [place] Diabetes Association (ADA) provides guidance for cutoff values for fasting glucose and random glucose. The ADA defines fasting as no caloric intake for at least 8 hours. Fasting plasma glucose results between 100 to 125 mg/dL indicate increased risk for diabetes (prediabetes).Fasting plasma glucose results greater than or equal to 126 mg/dL meet the criteria for diagnosis of diabetes. In the absence of unequivocal hyperglycemia, results should be confirmed by repeat testing. In a patient with classic symptoms of hyperglycemia or hyperglycemic crisis, random plasma glucose results greater than or equal to 200 mg/dL meet the criteria for diagnosis of diabetes.Reference: Standards of Medical Care in Diabetes 2016, [place] Diabetes Association. Diabetes Care. 2016.39(Suppl 1). Performed By: #### 2 4323-8, 3040-3, 65677-6 ####HAND LABORATORYCLIA [id number] [place] [address] [place] Potassium [Moles/Vol] 4.0 mmol/L Normal 3.7-5.1 [facility] Comment on above: Order Comment: Cesar piper Type: BLOOD SPECIMENOrdering Facility: [facility] Address: [address] [place] [address] Performed By: #### 2 4323-8, 3040-3, 50978-8 ####HAND LABORATORYCLIA [id number] [place] [address] [place] Protein [Mass/Vol] 6.7 g/dL Normal 6.3-8.0 [facility] Comment on above: Order Comment: Cesar piper Type: BLOOD SPECIMENOrdering Facility: [facility] Address: [address] [place] [address] Performed By: #### 2 4323-8, 3040-3, 96091-7 ####HAND LABORATORYCLIA [id number] [address] [place] Sodium [Moles/Vol] 140 mmol/L Normal 136-144 [facility] Comment on above: Order Comment: Holai feliz Type: BLOOD SPECIMENOrdering Facility: [facility] Address: [address] [place] [address] Performed By: #### 2 4323-8, 3040-3, 30500-4 ####HAND LABORATORYCLIA [id number] [place] [address] [place] Urea nitrogen [Mass/Vol] 14 mg/dL Normal 7-21 [facility] Comment on above: Order Comment: Cesar piper Type: BLOOD SPECIMENOrdering Facility: [facility] Address: [address] [place] [address] Performed By: #### 2 4323-8, 3040-3, 51309-0 ####[facility] LABORATORYCLIA [id number] [address] OF [facility] ECG COMPLETEon 12-20-2023 ECG COMPLETE Normal [facility] HISTORY PHYSICALon 4 HISTORY PHYSICAL Normal [facility] LACon 12-20-2023 Lactic Acid Lvl 1.2 mmol/L Normal 0.4-2.0 [facility] ([place]) Comment on above: Performed By: #### L AC, CBC, ADIFF, ANEU, MDW, TROPHS, CMP, GFR #### [address] [address] Lipase SerPl-cCncon 12-20-19 24 Lipase [Catalytic activity/Vol] 10 U/L Low 16-61 [facility] Comment on above: Order Comment: Speci men Type: BLOOD SPECIMENOrdering Facility: [facility] Address: [address] [place], [place] [address] Performed By: #### 2 4323-8, 3040-3, 23430-9 ####[facility] LABORATORYCLIA [id number] [address] NM HEPATOBILIARY WO RXon NM HEPATOBILIARY WO RX Normal [facility] NT-proBNP SerPl-ncon 12-19 Natriuretic peptide.B prohormone N-Terminal [Mass/Vol] 1731 pg/mL High <125 [facility] Comment on above: Order Comment: Speci men Type: BLOOD SPECIMENOrdering Facility: [facility] Address: [address] [place] [id number] Performed By: #### 2 4323-8, 3040-3, 64018-8 ####[facility] LABORATORYCLIA [id number] [address] STATES OF [facility] TROPHSon 12-20-2023 High Sensitivity Troponin I 19 ng/L Normal 0-51 [facility] ([place]) Comment on above: Result Comment: High Sensitive Troponin I Reference Ranges: Female: 0-51 ng/L Male: 0-76 ng/L Testing performed on [employer] using a homogeneous sandwich chemiluminescent immunoassay based on [employer] technology. Performed By: #### L AC, CBC, ADIFF, ANEU, MDW, TROPHS, CMP, GFR #### Nora [address] [address] UAon 12-20-2023 Color (U) Yellow Normal [facility] ([place]) Comment on above: Performed By: #### U A #### Noar [address] [address] Glucose (U) [Mass/Vol] Negative Normal Negative [facility] ([place]) Comment on above: Performed By: #### U A #### [address] [address] Ketones Ql (U) Negative Normal Negative [facility] ([place]) Comment on above: Performed By: #### U A #### [address] [address] UA Appear Clear Normal Clear [facility] ([place]) Comment on above: Performed By: #### U A #### [address] [address] UA Blood Trace Abnormal Negative [facility] ([place] Comment on above: Performed By: #### U A #### [address] [address] UA Leuk Est Negative Normal Negative [facility] ([place] Comment on above: Performed By: #### U A #### [address] [address] UA Nitrite Negative Normal Negative [facility] ([place] Comment on above: Performed By: #### U A #### [address] [address] UA pH 5.5 Normal 5.0 - 8.0 [facility] ([place]) Comment on above: Performed By: #### U A #### [address] [address] UA Protein Negative Normal Negative [facility] ([place]) Comment on above: Performed By: #### U A #### [address] [address] UA Spec Grav 1.025 Normal 1.015-1.02 5 [facility] ([place] Comment on above: Performed By: #### U A #### [address] [address] UA Specimen Type Void Normal [facility] ([place]) Comment on above: Performed By: #### U A #### [address] [address] UA Urobilinogen 1.0 E.U./dL Normal 0.2-1.0 [facility] ([place]) Comment on above: Performed By: #### U A #### [address] [address] Urobilinogen (U) [Mass/Vol] Negative Normal Negative [facility] ([place]) Comment on above: Performed By: #### U A #### [address] [address] XR CHEST 2V FRONTAL/LATon XR CHEST 2V FRONTAL/LAT Normal [facility] .Auto Diffon 12-19-2023 Basophil, Absolute 0.1 10 3/mcL Normal 0.0-0.2 [facility] ([place]) Comment on above: Performed By: #### L AC, CBC, ADIFF, ANEU, MDW, TROPHS, CMP, GFR #### [address] [address] Basophils/100 WBC (Bld) 0.8 % Normal 0.0-2.5 A [facility] ([place]) Comment on above: Performed By: #### L AC, CBC, ADIFF, ANEU, MDW, TROPHS, CMP, GFR #### [address] [address] Eosinophil, Absolute 0.6 10 3/mcL High 0.0-0.4 [facility] ([place]) Comment on above: Performed By: #### L AC, CBC, ADIFF, ANEU, MDW, TROPHS, CMP, GFR #### [address] [address] Eosinophils/100 WBC (Bld) 5.4 % Normal 0.0-7.0 [facility] ([place]) Comment on above: Performed By: #### L AC, CBC, ADIFF, ANEU, MDW, TROPHS, CMP, GFR #### [address] [address] Lymphocyte, Absolute 0.9 10 3/mcL Normal 0.8-3.9 [facility] ([place]) Comment on above: Performed By: #### L AC, CBC, ADIFF, ANEU, MDW, TROPHS, CMP, GFR #### [address] [address] Lymphocytes/100 WBC (Bld) 8.8 % Low 10.0-50.0 [facility] ([place]) Comment on above: Performed By: #### L AC, CBC, ADIFF, ANEU, MDW, TROPHS, CMP, GFR #### [address] [address] Monocyte, Absolute 0.8 10 3/mcL Normal 0.2-1.0 [facility] ([place]) Comment on above: Performed By: #### L AC, CBC, ADIFF, ANEU, MDW, TROPHS, CMP, GFR #### [address] [address] Monocytes/100 WBC (Bld) 7.8 % Normal 1.7-13.0 [facility] ([place]) Comment on above: Performed By: #### L AC, CBC, ADIFF, ANEU, MDW, TROPHS, CMP, GFR #### [address] [address] Neutrophils/100 WBC (Bld) 77.2 % Normal 37.0-80.0 [facility] ([place]) Comment on above: Performed By: #### L AC, CBC, ADIFF, ANEU, MDW, TROPHS, CMP, GFR #### [address] [address] .Won 12-19-2023 Monocyte Distribution Width 24.44 High 0.00-20.00 [facility] ([place]) Comment on above: Result Comment: For adults in ED, MDW>20.0 may be associated with a higher risk of sepsis during the first 12hrs of hospital admission Performed By: #### L AC, CBC, ADIFF, ANEU, MDW, TROPHS, CMP, GFR #### [place] [address] .NEUABSon 12-19-2023 Neutrophil, Absolute 8.2 10 3/mcL High 2.9-6.2 [facility] ([place]) Comment on above: Performed By: #### L AC, CBC, ADIFF, ANEU, MDW, TROPHS, CMP, GFR #### [place] [address] CBCon 12-19-2023 Erythrocyte distribution width (RBC) [Ratio] 13.7 % Normal 11.5-14.5 [facility] ([place]) Comment on above: Performed By: #### L AC, CBC, ADIFF, ANEU, MDW, TROPHS, CMP, GFR #### [place] [address] Hematocrit (Bld) [Volume fraction] 33.7 % Low 37.0-47.0 [facility] ([place]) Comment on above: Performed By: #### L AC, CBC, ADIFF, ANEU, MDW, TROPHS, CMP, GFR #### [place] [address] Hgb 11.5 G/dL Low 12.0-16.0 [facility] ([place]) Comment on above: Performed By: #### L AC, CBC, ADIFF, ANEU, MDW, TROPHS, CMP, GFR #### [place] [address] MCH (RBC) [Entitic mass] 31.1 pg Normal 27.0-31.2 [facility]) Comment on above: Performed By: #### L AC, CBC, ADIFF, ANEU, MDW, TROPHS, CMP, GFR #### [place] [id number] MCHC 34.1 G/dL Normal 33.0-37.0 [facility] ([place]) Comment on above: Performed By: #### L AC, CBC, ADIFF, ANEU, MDW, TROPHS, CMP, GFR #### [address] [address] MCV (RBC) [Entitic vol] 91.1 fL Normal 80.0-94.0 A [facility] ([place]) Comment on above: Performed By: #### L AC, CBC, ADIFF, ANEU, MDW, TROPHS, CMP, GFR #### [address] [address] Platelet 335 10 3/mcL Normal 130-400 [facility] ([place]) Comment on above: Performed By: #### L AC, CBC, ADIFF, ANEU, MDW, TROPHS, CMP, GFR #### [address] [address] Platelet mean volume (Bld) [Entitic vol] 6.8 fL Low 7.4-10.4 [facility] ([place]) Comment on above: Performed By: #### L AC, CBC, ADIFF, ANEU, MDW, TROPHS, CMP, GFR #### [address] [address] RBC 3.70 10 6/mcL Low 4.20-5.40 [facility] ([place]) Comment on above: Performed By: #### L AC, CBC, ADIFF, ANEU, MDW, TROPHS, CMP, GFR #### [address] [address] WBC 10.6 10 3/mcL Normal 4.6-10.8 [facility] ([place]) Comment on above: Performed By: #### L AC, CBC, ADIFF, ANEU, MDW, TROPHS, CMP, GFR #### [address] [address] LABORATORYOrdered By: SYSTEM SYSTEM on 12-19-2023 Albumin BCP dye [Mass/Vol] 2.7 G/dL Low 3.4 - 4.8 G/dL AO ADM SS Albumin/Globulin [Mass ratio] 0.6 {ratio} Low 1.1 - 2.5 ratio AO ADM SS ALP [Catalytic activity/Vol] 263 U/L High 40 - 135 U/L AO ADM SS ALT With P-5'-P [Catalytic activity/Vol] 21 U/L Normal 14 - 59 U/L AO ADM SS AST With P-5'-P [Catalytic activity/Vol] 15 U/L Normal 10 - 40 U/L AO ADM SS Basophil, Absolute 0.1 103/mcL Normal 0.0 - 0.2 10^3/mcL AO Workflow SS Basophils/100 WBC (Bld) 0.8 % Normal 0.0 - 2.5 % AO Workflow SS Bilirubin [Mass/Vol] 0.4 mg/dL Normal 0.2 - 1 .0 mg/dL AO ADM SS Comment on above: Interpretive Data: U se of this assay is not recommended for patients undergoing treatment with eltrombopag due to the potential for falsely elevated results. Calcium [Mass/Vol] 8.7 mg/dL Normal 8.4 - 10. 2 mg/dL AO ADM SS Chloride [Moles/Vol] 102 mmol/L Normal 98 - 10 7 mmol/L AO ADM SS CO2 [Moles/Vol] 32 mmol/L High 23 - 31 mmol/L AO ADM SS Creatinine [Mass/Vol] 1.19 mg/dL High 0.55 - 1.02 mg/dL AO ADM SS Electrolyte Balance 5.0 mEq/L Normal 4.0 - 15 .0 mEq/L AO ADM SS Eosinophil, Absolute 0.6 103/mcL High 0.0 - 0 .4 10^3/mcL AO Workflow SS Eosinophils/100 WBC (Bld) 5.4 % Normal 0.0 - 7.0 % AO Workflow SS Erythrocyte distribution width (RBC) [Ratio] 13.7 % Normal 11.5 - 14.5 % AO Workflow SS GFR/1.73 sq M.predicted among blacks MDRD (S/P/Bld) [Vol rate/Area] 55 ml/min/1.73sqm Invalid Interpretation Code AO Chemistry S Comment on above: Interpretive Data: GFR Population mean for , Non- Americans Ages 20-29 = 116 mL/min/1.73 sq.m. Ages 30-39 = 107 mL/min/1.73 sq.m. Ages 40-49 = 99 mL/min/1.73 sq.m. Ages 50-59 = 93 mL/min/1.73 sq.m. Ages 60-69 = 85 mL/min/1.73 sq.m. Ages 70+ = 75 mL/min/1.73 sq.m. Chronic Kidney Disease: Less than 60 mL/min/1.73 square meters End Stage Renal Disease: Less than 15 mL/min/1.73 square meters GFR/1.73 sq M.predicted among non-blacks MDRD (S/P/Bld) [Vol rate/Area] 45 ml/min/1.73sqm Invalid Interpretation Code AO Chemistry S Comment on above: Interpretive Data: GFR Population mean for , Non- Americans Ages 20-29 = 116 mL/min/1.73 sq.m. Ages 30-39 = 107 mL/min/1.73 sq.m. Ages 40-49 = 99 mL/min/1.73 sq.m. Ages 50-59 = 93 mL/min/1.73 sq.m. Ages 60-69 = 85 mL/min/1.73 sq.m. Ages 70+ = 75 mL/min/1.73 sq.m. Chronic Kidney Disease: Less than 60 mL/min/1.73 square meters End Stage Renal Disease: Less than 15 mL/min/1.73 square meters Globulin 4.2 G/dL Invalid Interpretation Code AO ADM SS Glucose [Mass/Vol] 139 mg/dL High 80 - 115 mg/dL AO ADM SS Hematocrit (Bld) [Volume fraction] 33.7 % Low 37.0 - 47.0 % AO Workflow SS Hemoglobin (Bld) [Mass/Vol] 11.5 G/dL Low 12.0 - 16.0 G/dL AO Workflow SS Lactate [Moles/Vol] 1.2 mmol/L Normal 0.4 - 2. 0 mmol/L AO ADM SS Lymphocyte, Absolute 0.9 103/mcL Normal 0.8 - 3 .9 10^3/mcL AO Workflow SS Lymphocytes/100 WBC (Bld) 8.8 % Low 10.0 - 50.0 % AO Workflow SS MCH (RBC) [Entitic mass] 31.1 pg Normal 27. 0 - 31.2 pg AO Workflow SS MCHC 34.1 G/dL Normal 33.0 - 37.0 G/dL AO Workflow SS MCV (RBC) [Entitic vol] 91.1 fL Normal 80.0 - 94.0 fL AO Workflow SS Monocyte distribution width Auto (Bld) [Entitic vol] 24.44 1 High 0.00 - 20.00 AO Workflow SS Comment on above: Result Comment: For adults in ED, MDW>20.0 may be associated with a higher risk of sepsis during the first 12hrs of hospital admission Monocyte, Absolute 0.8 103/mcL Normal 0.2 - 1.0 10^3/mcL AO Workflow SS Monocytes/100 WBC (Bld) 7.8 % Normal 1.7 - 13.0 % AO Workflow SS Neutrophil, Absolute 8.2 103/mcL High 2.9 - 6 .2 10^3/mcL AO Workflow SS Neutrophils/100 WBC (Bld) 77.2 % Normal 37.0 - 80.0 % AO Workflow SS Platelet mean volume (Bld) [Entitic vol] 6.8 fL Low 7.4 - 10.4 fL AO Workflow SS Platelets (Bld) [#/Vol] 335 103/mcL Normal 130 - 400 10^3/mcL AO Workflow SS Potassium [Moles/Vol] 3.8 mmol/L Normal 3.5 - 5.1 mmol/L AO ADM SS Protein [Mass/Vol] 6.9 G/dL Normal 6.4 - 8.2 G/dL AO ADM SS RBC (Bld) [#/Vol] 3.70 106/mcL Low 4.20 - 5.40 10^6/mcL AO Workflow SS Sodium [Moles/Vol] 139 mmol/L Normal 136 - 145 mmol/L AO ADM SS Troponin I.cardiac DL <= 0.01 ng/mL [Mass/Vol] 19 ng/L Normal 0 - 51 ng/L AO ADM SS Comment on above: Interpretive Data: H igh Sensitive Troponin I Reference Ranges: Female: 0-51 ng/L Male: 0-76 ng/L Testing performed on [employer] using a homogeneous sandwich chemiluminescent immunoassay based on [employer] technology. Urea nitrogen [Mass/Vol] 10 mg/dL Normal 7 - 18 mg/dL AO ADM SS Urea nitrogen/Creatinine [Mass ratio] 8 ratio Normal 7 - 27 ratio AO ADM SS WBC (Bld) [#/Vol] 10.6 103/mcL Normal 4.6 - 10.8 10^3/mcL AO Workflow SS LABORATORYOrdered By: Norma Mendez on 12-19-2023 Appearance (U) Clear (12/19/23 9:30 PM) Normal Clear AO Auto Urine SS Bilirubin Ql (U) Negative (12/19/23 9:30 PM) Normal Negative AO Auto Urine SS Color (U) Yellow (12/19/23 9:30 PM) Normal AO Auto Urine SS Glucose Test strip (U) [Mass/Vol] Negative Normal Negative AO Auto Urine SS Hemoglobin Auto test strip (U) [Mass/Vol] Trace *ABN* (12/19/23 9:30 PM) Invalid Interpretation Code Negative AO Auto Urine SS Ketones Ql (U) Negative Normal Negative AO Auto Urine SS UA Leuk Est Negative (12/19/23 9:30 PM) Normal Negative AO Auto Urine SS UA Nitrite Negative (12/19/23 9:30 PM) Normal Negative AO Auto Urine SS UA pH 5.5 (12/19/23 9:30 PM) Normal 5.0 - 8.0 AO Auto Urine SS UA Protein Negative Normal Negative AO Auto Urine SS UA Spec Grav 1.025 (12/19/23 9:30 PM) Normal 1.015-1.02 5 AO Auto Urine SS UA Specimen Type Void (12/19/23 9:30 PM) Normal AO Auto Urine SS UA Urobilinogen 1.0 E.U./dL Normal 0.2-1.0 AO Auto Urine SS CASE MANAGEMon 12-12-2023 CASE MANAGEM Normal [facility] CBC panel Auto (Bld)on 12-11 Erythrocyte distribution width (RBC) [Ratio] 13.2 % Normal 11.5-15.0 [facility] Comment on above: Order Comment: Speci men Type: BLOOD SPECIMENOrdering Facility: [facility] Address: [address] [place] [address] Performed By: #### 5 8410-2 ####[place] LABORATORYCLIA [id number] [place] [address] [place] Hematocrit (Bld) [Volume fraction] 37.6 % Normal 36.0-46.0 [facility] Comment on above: Order Comment: Speci men Type: BLOOD SPECIMENOrdering Facility: [facility] Address: [address] [place] [address] Performed By: #### 5 8410-2 ####HAND LABORATORYCLIA [id number] [place] [address] [place] Hemoglobin (Bld) [Mass/Vol] 11.6 g/dL Normal 11.5-15.5 [facility] Comment on above: Order Comment: Speci men Type: BLOOD SPECIMENOrdering Facility: [facility] Address: [address] [place] [address] Performed By: #### 5 8410-2 ####HAND LABORATORYCLIA [id number] [address] [place] MCH (RBC) [Entitic mass] 29.7 pg Normal 26.0-34.0 [facility] Comment on above: Order Comment: Speci men Type: BLOOD SPECIMENOrdering Facility: [facility] Address: [address] [place] [address] Performed By: #### 5 8410-2 ####HAND LABORATORYCLIA [id number] [address] [place] MCHC (RBC) [Mass/Vol] 30.9 g/dL Normal 30.5-36.0 [facility] Comment on above: Order Comment: Speci men Type: BLOOD SPECIMENOrdering Facility: [facility] Address: [address] [place] [address] Performed By: #### 5 8410-2 ####HAND LABORATORYCLIA [id number] [address] [place] MCV (RBC) [Entitic vol] 96.4 fL Normal 80.0-100.0 [facility] Comment on above: Order Comment: Speci men Type: BLOOD SPECIMENOrdering Facility: [facility] Address: [address] [place] [address] Performed By: #### 5 8410-2 ####HAND LABORATORYCLIA [id number] [address] Nucleated RBC (Bld) [#/Vol] 10*3/uL Normal <0.01 [facility] Comment on above: Order Comment: Speci men Type: BLOOD SPECIMENOrdering Facility: [facility] Address: [address] [place] [address] Performed By: #### 5 8410-2 ####HAND LABORATORYCLIA [id number] [place] [address] [place] Platelet mean volume (Bld) [Entitic vol] 9.2 fL Normal 9.0-12.7 [facility] Comment on above: Order Comment: Speci men Type: BLOOD SPECIMENOrdering Facility: [facility] Address: [address] [place] [address] Performed By: #### 5 8410-2 ####HAND LABORATORYCLIA [id number] [place] [address] [place] Platelets (Bld) [#/Vol] 244 10*3/uL Normal 150-400 [facility] Comment on above: Order Comment: Speci men Type: BLOOD SPECIMENOrdering Facility: [facility] Address: [address] [place] [address] Performed By: #### 5 8410-2 ####HAND LABORATORYCLIA [id number] [place] [address] [place] RBC (Bld) [#/Vol] 3.90 10*6/uL Normal 3.90-5.20 [facility] Comment on above: Order Comment: Speci men Type: BLOOD SPECIMENOrdering Facility: [facility] Address: [address] [place] [address] Performed By: #### 5 8410-2 ####HAND LABORATORYCLIA [id number] [place] [address] [place] WBC (Bld) [#/Vol] 7.44 10*3/uL Normal 3.70-11.00 [facility] Comment on above: Order Comment: Speci men Type: BLOOD SPECIMENOrdering Facility: [facility] Address: [address] [place] [address] Performed By: #### 5 8410-2 ####HAND LABORATORYCLIA [id number] [place] [address] [place] CNDSon 12-12-2023 CNDS Normal [facility] CONSULT PROGon 12-12-2023 CONSULT PROG [facility] Comprehensive metabolic 2000 panelon 12-12-2023 Albumin [Mass/Vol] 3.4 g/dL Low 3.9-4.9 [facility] Comment on above: Order Comment: Speci men Type: BLOOD SPECIMENOrdering Facility: [facility] Address: [address] [place] [address] Performed By: #### 2 4323-8 ####HAND LABORATORYCLIA [id number] [place] [address] [place] ALP [Catalytic activity/Vol] 220 U/L High 34-123 [facility] Comment on above: Order Comment: Speci men Type: BLOOD SPECIMENOrdering Facility: [facility] Address: [address] [place] [address] Performed By: #### 2 4323-8 ####HAND LABORATORYCLIA [id number] [place] [address] [place] ALT [Catalytic activity/Vol] 26 U/L Normal 7-38 [facility] Comment on above: Order Comment: Speci men Type: BLOOD SPECIMENOrdering Facility: [facility] Address: [address] [place] [address] Performed By: #### 2 4323-8 ####HAND LABORATORYCLIA [id number] [place] [address] [place] [facility] Anion gap [Moles/Vol] 6 mmol/L Low 9-18 [facility] Comment on above: Order Comment: Speci men Type: BLOOD SPECIMENOrdering Facility: [facility] Address: [address] [place] [address] Performed By: #### 2 4323-8 ####HAND LABORATORYCLIA [id number] [place] [address] [place] AST [Catalytic activity/Vol] 26 U/L Normal 13-35 [facility] Comment on above: Order Comment: Speci men Type: BLOOD SPECIMENOrdering Facility: [facility] Address: [address] [place] [address] Performed By: #### 2 4323-8 ####HAND LABORATORYCLIA [id number] [place] [address] [place] Bilirubin [Mass/Vol] 0.3 mg/dL Normal 0.2-1.3 [facility] Comment on above: Order Comment: Speci men Type: BLOOD SPECIMENOrdering Facility: [facility] Address: [address] [place] [address] Performed By: #### 2 4323-8 ####HAND LABORATORYCLIA [id number] [place] [address] [place] Calcium [Mass/Vol] 9.3 mg/dL Normal 8.5-10.2 [facility] Comment on above: Order Comment: Speci men Type: BLOOD SPECIMENOrdering Facility: [facility] Address: [address] [place] [address] Performed By: #### 2 4323-8 ####HAND LABORATORYCLIA [id number] [place] [address] [place] Chloride [Moles/Vol] 102 mmol/L Normal 97-105 [facility] Comment on above: Order Comment: Speci men Type: BLOOD SPECIMENOrdering Facility: [facility] Address: [address] [place] [address] Performed By: #### 2 4323-8 ####HAND LABORATORYCLIA [id number] [place] [address] [place] CO2 [Moles/Vol] 33 mmol/L High 22-30 [facility] Comment on above: Order Comment: Speci men Type: BLOOD SPECIMENOrdering Facility: [facility] Address: [address] [place] [address] Performed By: #### 2 4323-8 ####HAND LABORATORYCLIA [id number] [place] [address] [place] Creatinine [Mass/Vol] 0.95 mg/dL Normal 0.58-0.96 [facility] Comment on above: Order Comment: Speci men Type: BLOOD SPECIMENOrdering Facility: [facility] Address: [address] [place] [address] Performed By: #### 2 4323-8 ####HAND LABORATORYCLIA [id number] [place] [address] [place] Creatinine and Glomerular filtration rate.predicted panel (S/P/Bld) 66 mL/min/1.73m??? Normal >=60 [facility] Comment on above: Order Comment: Cesar piper Type: BLOOD SPECIMENOrdering Facility: [facility] Address: [address] [place] [address] Result Comment: Sweta mated Glomerular Filtration Rate (eGFR) is calculated using the 2020 CKD-EPI creatinine equation. This equation utilizes serum creatinine, sex, and age as parameters. The creatinine assay has traceable calibration to isotope dilution-mass spectrometry. Refer to KDIGO guidelines for clinical interpretation. In patients with unstable renal function, e.g. those with acute kidney injury, the eGFR may not accurately reflect actual GFR. Performed By: #### 2 4323-8 ####HAND LABORATORYCLIA [id number] [place] [id number] [place] Glucose [Mass/Vol] 97 mg/dL Normal 74-99 [facility] Comment on above: Order Comment: Cesar [facility] Type: BLOOD SPECIMENOrdering Facility: [facility] Address: [address] [place] [address] Result Comment: The [place] Diabetes Association (ADA) provides guidance for cutoff values for fasting glucose and random glucose. The ADA defines fasting as no caloric intake for at least 8 hours. Fasting plasma glucose results between 100 to 125 mg/dL indicate increased risk for diabetes (prediabetes).Fasting plasma glucose results greater than or equal to 126 mg/dL meet the criteria for diagnosis of diabetes. In the absence of unequivocal hyperglycemia, results should be confirmed by repeat testing. In a patient with classic symptoms of hyperglycemia or hyperglycemic crisis, random plasma glucose results greater than or equal to 200 mg/dL meet the criteria for diagnosis of diabetes.Reference: Standards of Medical Care in Diabetes 2016, [place] Diabetes Association. Diabetes Care. 2016.39(Suppl 1). Performed By: #### 2 4323-8 ####HAND LABORATORYCLIA [id number] [place] [address] [place] Potassium [Moles/Vol] 3.8 mmol/L Normal 3.7-5.1 [facility] Comment on above: Order Comment: Speci men Type: BLOOD SPECIMENOrdering Facility: [facility] Address: [address] [place] [address] Performed By: #### 2 4323-8 ####HAND LABORATORYCLIA [id number] [address] [place] [facility] Protein [Mass/Vol] 6.2 g/dL Low 6.3-8.0 [facility] Comment on above: Order Comment: Speci men Type: BLOOD SPECIMENOrdering Facility: [facility] Address: [address] [place] [address] Performed By: #### 2 4323-8 ####HAND LABORATORYCLIA [id number] [address] Sodium [Moles/Vol] 141 mmol/L Normal 136-144 [facility] Comment on above: Order Comment: Speci men Type: BLOOD SPECIMENOrdering Facility: [facility] Address: [address] [place] [address] Performed By: #### 2 4323-8 ####HAND LABORATORYCLIA [id number] [address] [place] [facility] Urea nitrogen [Mass/Vol] 17 mg/dL Normal 7-21 [facility] Comment on above: Order Comment: Speci men Type: BLOOD SPECIMENOrdering Facility: [facility] Address: [address] [place] [address] Performed By: #### 2 4323-8 ####HAND LABORATORYCLIA [id number] [address] THERAPY NTon 12-12-2023 THERAPY NT Normal [facility] CASE MANAGEMon 12-11-2023 CASE MANAGEM Normal [facility] CBC panel Auto (Bld)on 12-10 Erythrocyte distribution width (RBC) [Ratio] 13.2 % Normal 11.5-15.0 [facility] Comment on above: Order Comment: Speci men Type: BLOOD SPECIMENOrdering Facility: [facility] Address: [address] [place] [address] Performed By: #### 5 8410-2 ####HAND LABORATORYCLIA [id number] [address] [place] Hematocrit (Bld) [Volume fraction] 36.9 % Normal 36.0-46.0 [facility] Comment on above: Order Comment: Speci men Type: BLOOD SPECIMENOrdering Facility: [facility] Address: [address] [place] [address] Performed By: #### 5 8410-2 ####HAND LABORATORYCLIA [id number] [address] Hemoglobin (Bld) [Mass/Vol] 11.7 g/dL Normal 11.5-15.5 [facility] Comment on above: Order Comment: Speci men Type: BLOOD SPECIMENOrdering Facility: [facility] Address: [address] [place] [address] Performed By: #### 5 8410-2 ####HAND LABORATORYCLIA [id number] [address] MCH (RBC) [Entitic mass] 30.0 pg Normal 26.0-34.0 [facility] Comment on above: Order Comment: Speci men Type: BLOOD SPECIMENOrdering Facility: [facility] Address: [address] [place] [address] Performed By: #### 5 8410-2 ####HAND LABORATORYCLIA [id number] [address] MCHC (RBC) [Mass/Vol] 31.7 g/dL Normal 30.5-36.0 [facility] Comment on above: Order Comment: Speci men Type: BLOOD SPECIMENOrdering Facility: [facility] Address: [address] [place] [address] Performed By: #### 5 8410-2 ####HAND LABORATORYCLIA [id number] [address] MCV (RBC) [Entitic vol] 94.6 fL Normal 80.0-100.0 [facility] Comment on above: Order Comment: Speci men Type: BLOOD SPECIMENOrdering Facility: [facility] Address: [address] [place] [address] Performed By: #### 5 8410-2 ####HAND LABORATORYCLIA [id number] [place] [address] [place] Nucleated RBC (Bld) [#/Vol] 10*3/uL Normal <0.01 [facility] Comment on above: Order Comment: Speci men Type: BLOOD SPECIMENOrdering Facility: [facility] Address: [address] [place] [address] Performed By: #### 5 8410-2 ####HAND LABORATORYCLIA [id number] [place] [address] [place] Platelet mean volume (Bld) [Entitic vol] 8.9 fL Low 9.0-12.7 [facility] Comment on above: Order Comment: Speci men Type: BLOOD SPECIMENOrdering Facility: [facility] Address: [address] [place] [address] Performed By: #### 5 8410-2 ####[facility] LABORATORYCLIA [id number] [address] [place] Platelets (Bld) [#/Vol] 218 10*3/uL Normal 150-400 [facility] Comment on above: Order Comment: Speci men Type: BLOOD SPECIMENOrdering Facility: [facility] Address: [address] [place] [address] Performed By: #### 5 8410-2 ####HAND LABORATORYCLIA [id number] [address] [place] RBC (Bld) [#/Vol] 3.90 10*6/uL Normal 3.90-5.20 [facility] Comment on above: Order Comment: Speci men Type: BLOOD SPECIMENOrdering Facility: [facility] Address: [address] [place] [address] Performed By: #### 5 8410-2 ####HAND LABORATORYCLIA [id number] [place] [address] [place] WBC (Bld) [#/Vol] 7.43 10*3/uL Normal 3.70-11.00 [facility] Comment on above: Order Comment: Speci men Type: BLOOD SPECIMENOrdering Facility: [facility] Address: [address] [place] [address] Performed By: #### 5 8410-2 ####HAND LABORATORYCLIA [id number] [place] [address] [place] CONSULT PROGon 12-11-2023 CONSULT PROG Normal [facility] Comprehensive metabolic 2000 panelon 12-11-2023 Albumin [Mass/Vol] 3.3 g/dL Low 3.9-4.9 [facility] Comment on above: Order Comment: Speci men Type: BLOOD SPECIMENOrdering Facility: [facility] Address: [address] [place] [address] Performed By: #### 2 4323-8 ####HAND LABORATORYCLIA [id number] [address] [place] ALP [Catalytic activity/Vol] 223 U/L High 34-123 [facility] Comment on above: Order Comment: Speci men Type: BLOOD SPECIMENOrdering Facility: [facility] Address: [address] [place] [address] Performed By: #### 2 4323-8 ####HAND LABORATORYCLIA [id number] [address] STATES [facility] ALT [Catalytic activity/Vol] 30 U/L Normal 7-38 [facility] Comment on above: Order Comment: Speci men Type: BLOOD SPECIMENOrdering Facility: [facility] Address: [address] [place] [address] Performed By: #### 2 4323-8 ####HAND LABORATORYCLIA [id number] [place] [address] [place] [facility] Anion gap [Moles/Vol] 8 mmol/L Low 9-18 [facility] Comment on above: Order Comment: Speci men Type: BLOOD SPECIMENOrdering Facility: [facility] Address: [address] [place] [address] Performed By: #### 2 4323-8 ####HAND LABORATORYCLIA [id number] [address] AST [Catalytic activity/Vol] 32 U/L Normal 13-35 [facility] Comment on above: Order Comment: Speci men Type: BLOOD SPECIMENOrdering Facility: [facility] Address: [address] [place] [address] Performed By: #### 2 4323-8 ####HAND LABORATORYCLIA [id number] [place] [address] [place] Bilirubin [Mass/Vol] 0.3 mg/dL Normal 0.2-1.3 [facility] Comment on above: Order Comment: Speci men Type: BLOOD SPECIMENOrdering Facility: [facility] Address: [address] [place] [address] Performed By: #### 2 4323-8 ####HAND LABORATORYCLIA [id number] [place] [address] [place] Calcium [Mass/Vol] 8.9 mg/dL Normal 8.5-10.2 [facility] Comment on above: Order Comment: Speci men Type: BLOOD SPECIMENOrdering Facility: [facility] Address: [address] [place] [address] Performed By: #### 2 4323-8 ####HAND LABORATORYCLIA [id number] [place] [address] [place] Chloride [Moles/Vol] 101 mmol/L Normal 97-105 [facility] Comment on above: Order Comment: Speci men Type: BLOOD SPECIMENOrdering Facility: [facility] Address: [address] [place] [address] Performed By: #### 2 4323-8 ####HAND LABORATORYCLIA [id number] [place] [address] [place] CO2 [Moles/Vol] 31 mmol/L High 22-30 [facility] Comment on above: Order Comment: Speci men Type: BLOOD SPECIMENOrdering Facility: [facility] Address: [address] [place] [address] Performed By: #### 2 4323-8 ####HAND LABORATORYCLIA [id number] [place] [address] [place] Creatinine [Mass/Vol] 1.01 mg/dL High 0.58-0.96 [facility] Comment on above: Order Comment: Speci men Type: BLOOD SPECIMENOrdering Facility: [facility] Address: [address] [place] [address] Performed By: #### 2 4323-8 ####[place] LABORATORYCLIA [id number] [place] [id number] [place] Creatinine and Glomerular filtration rate.predicted panel (S/P/Bld) 61 mL/min/1.73m??? Normal >=60 [facility] Comment on above: Order Comment: Cesar piper Type: BLOOD SPECIMENOrdering Facility: [facility] Address: [address] [place] [address] Result Comment: Sweta mated Glomerular Filtration Rate (eGFR) is calculated using the 2020 CKD-EPI creatinine equation. This equation utilizes serum creatinine, sex, and age as parameters. The creatinine assay has traceable calibration to isotope dilution-mass spectrometry. Refer to KDIGO guidelines for clinical interpretation. In patients with unstable renal function, e.g. those with acute kidney injury, the eGFR may not accurately reflect actual GFR. Performed By: #### 2 4323-8 ####HAND LABORATORYCLIA [id number] [place] [id number] [place] Glucose [Mass/Vol] 106 mg/dL High 74-99 [facility] Comment on above: Order Comment: Cesar piper Type: BLOOD SPECIMENOrdering Facility: [facility] Address: [address] [place] [address] Result Comment: The [place] Diabetes Association (ADA) provides guidance for cutoff values for fasting glucose and random glucose. The ADA defines fasting as no caloric intake for at least 8 hours. Fasting plasma glucose results between 100 to 125 mg/dL indicate increased risk for diabetes (prediabetes).Fasting plasma glucose results greater than or equal to 126 mg/dL meet the criteria for diagnosis of diabetes. In the absence of unequivocal hyperglycemia, results should be confirmed by repeat testing. In a patient with classic symptoms of hyperglycemia or hyperglycemic crisis, random plasma glucose results greater than or equal to 200 mg/dL meet the criteria for diagnosis of diabetes.Reference: Standards of Medical Care in Diabetes 2016, [place] Diabetes Association. Diabetes Care. 2016.39(Suppl 1). Performed By: #### 2 4323-8 ####HAND LABORATORYCLIA [id number] [place] [address] [place] Potassium [Moles/Vol] 3.5 mmol/L Low 3.7-5.1 [facility] Comment on above: Order Comment: Speci men Type: BLOOD SPECIMENOrdering Facility: [facility] Address: [address] [place] [address] Performed By: #### 2 4323-8 ####HAND LABORATORYCLIA [id number] [place] [address] [place] Protein [Mass/Vol] 6.0 g/dL Low 6.3-8.0 [facility] Comment on above: Order Comment: Speci men Type: BLOOD SPECIMENOrdering Facility: [facility] Address: [address] [place] [address] Performed By: #### 2 4323-8 ####HAND LABORATORYCLIA [id number] [address] [place] Sodium [Moles/Vol] 140 mmol/L Normal 136-144 [facility] Comment on above: Order Comment: Speci men Type: BLOOD SPECIMENOrdering Facility: [facility] Address: [address] [place] [address] Performed By: #### 2 4323-8 ####HAND LABORATORYCLIA [id number] [place] [address] [place] Urea nitrogen [Mass/Vol] 24 mg/dL High 7-21 [facility] Comment on above: Order Comment: Speci men Type: BLOOD SPECIMENOrdering Facility: [facility] Address: [address] [place] [address] Performed By: #### 2 4323-8 ####HAND LABORATORYCLIA [id number] [place] [address] [place] THERAPY NTon 12-11-2023 THERAPY NT Normal [facility] CASE MANAGEMon 12-10-2023 CASE MANAGEM Normal [facility] CBC panel Auto (Bld)on 12-09 Erythrocyte distribution width (RBC) [Ratio] 12.9 % Normal 11.5-15.0 [facility] Comment on above: Order Comment: Speci men Type: BLOOD SPECIMENOrdering Facility: [facility] Address: [address] [place] [address] Performed By: #### 5 8410-2 ####HAND LABORATORYCLIA [id number] [address] Hematocrit (Bld) [Volume fraction] 41.3 % Normal 36.0-46.0 [facility] Comment on above: Order Comment: Speci men Type: BLOOD SPECIMENOrdering Facility: [facility] Address: [address] [place] [address] Performed By: #### 5 8410-2 ####HAND LABORATORYCLIA [id number] [address] Hemoglobin (Bld) [Mass/Vol] 13.4 g/dL Normal 11.5-15.5 [facility] Comment on above: Order Comment: Speci men Type: BLOOD SPECIMENOrdering Facility: [facility] Address: [address] [place] [address] Performed By: #### 5 8410-2 ####HAND LABORATORYCLIA [id number] [address] MCH (RBC) [Entitic mass] 29.8 pg Normal 26.0-34.0 [facility] Comment on above: Order Comment: Speci men Type: BLOOD SPECIMENOrdering Facility: [facility] Address: [address] [place] [address] Performed By: #### 5 8410-2 ####HAND LABORATORYCLIA [id number] [address] MCHC (RBC) [Mass/Vol] 32.4 g/dL Normal 30.5-36.0 [facility] Comment on above: Order Comment: Speci men Type: BLOOD SPECIMENOrdering Facility: [facility] Address: [address] [place] [address] Performed By: #### 5 8410-2 ####HAND LABORATORYCLIA [id number] [address] MCV (RBC) [Entitic vol] 91.8 fL Normal 80.0-100.0 [facility] Comment on above: Order Comment: Speci men Type: BLOOD SPECIMENOrdering Facility: [facility] Address: [address] [place] [address] Performed By: #### 5 8410-2 ####HAND LABORATORYCLIA [id number] [place] [address] [place] Nucleated RBC (Bld) [#/Vol] 10*3/uL Normal <0.01 [facility] Comment on above: Order Comment: Speci men Type: BLOOD SPECIMENOrdering Facility: [facility] Address: [address] [place] [address] Performed By: #### 5 8410-2 ####HAND LABORATORYCLIA [id number] [place] [address] [place] Platelet mean volume (Bld) [Entitic vol] 9.1 fL Normal 9.0-12.7 [facility] Comment on above: Order Comment: Speci men Type: BLOOD SPECIMENOrdering Facility: [facility] Address: [address] [place] [address] Performed By: #### 5 8410-2 ####HAND LABORATORYCLIA [id number] [place] [address] [facility] [place] Platelets (Bld) [#/Vol] 256 10*3/uL Normal 150-400 [facility] Comment on above: Order Comment: Speci men Type: BLOOD SPECIMENOrdering Facility: [facility] Address: [address] [place] [address] Performed By: #### 5 8410-2 ####HAND LABORATORYCLIA [id number] [place] [address] [place] RBC (Bld) [#/Vol] 4.50 10*6/uL Normal 3.90-5.20 [facility] Comment on above: Order Comment: Speci men Type: BLOOD SPECIMENOrdering Facility: [facility] Address: [address] [place] [address] Performed By: #### 5 8410-2 ####HAND LABORATORYCLIA [id number] [place] [address] [place] WBC (Bld) [#/Vol] 7.79 10*3/uL Normal 3.70-11.00 [facility] Comment on above: Order Comment: Speci men Type: BLOOD SPECIMENOrdering Facility: [facility] Address: [address] [place] [address] Performed By: #### 5 8410-2 ####HAND LABORATORYCLIA [id number] [place] [address] [facility] [place] CONSULT PROGon 12-10-2023 CONSULT PROG Normal [facility] CONSULT PROG Normal [facility] Comprehensive metabolic 2000 panelon 12-10-2023 Albumin [Mass/Vol] 3.8 g/dL Low 3.9-4.9 [facility] Comment on above: Order Comment: Speci men Type: BLOOD SPECIMENOrdering Facility: [facility] Address: [address] [place] [address] Performed By: #### 2 4323-8 ####HAND LABORATORYCLIA [id number] [place] [address] [place] ALP [Catalytic activity/Vol] 289 U/L High 34-123 [facility] Comment on above: Order Comment: Speci men Type: BLOOD SPECIMENOrdering Facility: [facility] Address: [address] [place] [address] Performed By: #### 2 4323-8 ####HAND LABORATORYCLIA [id number] [place] [address] [place] ALT [Catalytic activity/Vol] 50 U/L High 7-38 [facility] Comment on above: Order Comment: Speci men Type: BLOOD SPECIMENOrdering Facility: [facility] Address: [address] [place] [address] Performed By: #### 2 4323-8 ####HAND LABORATORYCLIA [id number] [place] [address] [place] Anion gap [Moles/Vol] 12 mmol/L Normal 9-18 [facility] Comment on above: Order Comment: Speci men Type: BLOOD SPECIMENOrdering Facility: [facility] Address: [address] [place] [address] Performed By: #### 2 4323-8 ####HAND LABORATORYCLIA [id number] [place] [address] [place] AST [Catalytic activity/Vol] 58 U/L High 13-35 [facility] Comment on above: Order Comment: Speci men Type: BLOOD SPECIMENOrdering Facility: [facility] Address: [address] [place] [address] Performed By: #### 2 4323-8 ####HAND LABORATORYCLIA [id number] [place] [address] [place] Bilirubin [Mass/Vol] 0.3 mg/dL Normal 0.2-1.3 [facility] Comment on above: Order Comment: Speci men Type: BLOOD SPECIMENOrdering Facility: [facility] Address: [address] [place] [address] Performed By: #### 2 4323-8 ####HAND LABORATORYCLIA [id number] [place] [address] [place] Calcium [Mass/Vol] 9.6 mg/dL Normal 8.5-10.2 [facility] Comment on above: Order Comment: Speci men Type: BLOOD SPECIMENOrdering Facility: [facility] Address: [address] [place] [address] Performed By: #### 2 4323-8 ####HAND LABORATORYCLIA [id number] [place] [address] [place] Chloride [Moles/Vol] 98 mmol/L Normal 97-105 [facility] Comment on above: Order Comment: Speci men Type: BLOOD SPECIMENOrdering Facility: [facility] Address: [address] [place] [address] Performed By: #### 2 4323-8 ####HAND LABORATORYCLIA [id number] [place] [address] [place] CO2 [Moles/Vol] 27 mmol/L Normal 22-30 [facility] Comment on above: Order Comment: Speci men Type: BLOOD SPECIMENOrdering Facility: [facility] Address: [address] [place] [address] Performed By: #### 2 4323-8 ####HAND LABORATORYCLIA [id number] [place] [address] [place] Creatinine [Mass/Vol] 0.79 mg/dL Normal 0.58-0.96 [facility] Comment on above: Order Comment: Holachristiano piper Type: BLOOD SPECIMENOrdering Facility: [facility] Address: [address] [place] [address] Performed By: #### 2 4323-8 ####HAND LABORATORYCLIA [id number] [place] [address] [facility] [place] Creatinine and Glomerular filtration rate.predicted panel (S/P/Bld) 82 mL/min/1.73m??? Normal >=60 [facility] Comment on above: Order Comment: Cesar piper Type: BLOOD SPECIMENOrdering Facility: [facility] Address: [address] [place] [address] Result Comment: Sweta mated Glomerular Filtration Rate (eGFR) is calculated using the 2020 CKD-EPI creatinine equation. This equation utilizes serum creatinine, sex, and age as parameters. The creatinine assay has traceable calibration to isotope dilution-mass spectrometry. Refer to KDIGO guidelines for clinical interpretation. In patients with unstable renal function, e.g. those with acute kidney injury, the eGFR may not accurately reflect actual GFR. Performed By: #### 2 4323-8 ####HAND LABORATORYCLIA [id number] [place] [id number] [place] Glucose [Mass/Vol] 117 mg/dL High 74-99 [facility] Comment on above: Order Comment: Holachristiano piper Type: BLOOD SPECIMENOrdering Facility: [facility] Address: [address] [place] [address] Result Comment: The [place] Diabetes Association (ADA) provides guidance for cutoff values for fasting glucose and random glucose. The ADA defines fasting as no caloric intake for at least 8 hours. Fasting plasma glucose results between 100 to 125 mg/dL indicate increased risk for diabetes (prediabetes).Fasting plasma glucose results greater than or equal to 126 mg/dL meet the criteria for diagnosis of diabetes. In the absence of unequivocal hyperglycemia, results should be confirmed by repeat testing. In a patient with classic symptoms of hyperglycemia or hyperglycemic crisis, random plasma glucose results greater than or equal to 200 mg/dL meet the criteria for diagnosis of diabetes.Reference: Standards of Medical Care in Diabetes 2016, [place] Diabetes Association. Diabetes Care. 2016.39(Suppl 1). Performed By: #### 2 4323-8 ####HAND LABORATORYCLIA [id number] [place] [address] [place] Potassium [Moles/Vol] 4.1 mmol/L Normal 3.7-5.1 [facility] Comment on above: Order Comment: Speci men Type: BLOOD SPECIMENOrdering Facility: [facility] Address: [address] [place] [address] Performed By: #### 2 4323-8 ####HAND LABORATORYCLIA [id number] [place] [address] [place] Protein [Mass/Vol] 7.0 g/dL Normal 6.3-8.0 [facility] Comment on above: Order Comment: Speci men Type: BLOOD SPECIMENOrdering Facility: [facility] Address: [address] [place] [address] Performed By: #### 2 4323-8 ####HAND LABORATORYCLIA [id number] [address] [place] Sodium [Moles/Vol] 137 mmol/L Normal 136-144 [facility] Comment on above: Order Comment: Speci men Type: BLOOD SPECIMENOrdering Facility: [facility] Address: [address] [place] [address] Performed By: #### 2 4323-8 ####HAND LABORATORYCLIA [id number] [address] [place] Urea nitrogen [Mass/Vol] 14 mg/dL Normal 7-21 [facility] Comment on above: Order Comment: Speci men Type: BLOOD SPECIMENOrdering Facility: [facility] Address: [address] [place] [address] Performed By: #### 2 4323-8 ####HAND LABORATORYCLIA [id number] [place] [address] [place] NURSING PROGon 12-10-2023 NURSING PROG [facility] THERAPY NTon 12-10-2023 THERAPY NT [facility] ANES POSTPROC EVALon 024 ANES POSTPROC EVAL [facility] ANES PRE-OPon 12-09-2023 ANES PRE-OP Normal [facility] CASE MANAGEMon 12-09-2023 CASE MANAGEM Normal [facility] CBC panel Auto (Bld)on 12-08 Erythrocyte distribution width (RBC) [Ratio] 13.2 % Normal 11.5-15.0 [facility] Comment on above: Order Comment: Speci men Type: BLOOD SPECIMENOrdering Facility: [facility] Address: [address] [place] [address] Performed By: #### 5 8410-2 ####HAND LABORATORYCLIA [id number] [address] Hematocrit (Bld) [Volume fraction] 36.0 % Normal 36.0-46.0 [facility] Comment on above: Order Comment: Speci men Type: BLOOD SPECIMENOrdering Facility: [facility] Address: [address] [place] [address] Performed By: #### 5 8410-2 ####HAND LABORATORYCLIA [id number] [address] [place] Hemoglobin (Bld) [Mass/Vol] 11.5 g/dL Normal 11.5-15.5 [facility] Comment on above: Order Comment: Speci men Type: BLOOD SPECIMENOrdering Facility: [facility] Address: [address] [place] [address] Performed By: #### 5 8410-2 ####HAND LABORATORYCLIA [id number] [address] [place] MCH (RBC) [Entitic mass] 30.7 pg Normal 26.0-34.0 [facility] Comment on above: Order Comment: Speci men Type: BLOOD SPECIMENOrdering Facility: [facility] Address: [address] [place] [address] Performed By: #### 5 8410-2 ####HAND LABORATORYCLIA [id number] [address] [place] MCHC (RBC) [Mass/Vol] 31.9 g/dL Normal 30.5-36.0 [facility] Comment on above: Order Comment: Speci men Type: BLOOD SPECIMENOrdering Facility: [facility] Address: [address] [place] [address] Performed By: #### 5 8410-2 ####HAND LABORATORYCLIA [id number] [address] MCV (RBC) [Entitic vol] 96.0 fL Normal 80.0-100.0 [facility] Comment on above: Order Comment: Speci men Type: BLOOD SPECIMENOrdering Facility: [facility] Address: [address] [place] [address] Performed By: #### 5 8410-2 ####HAND LABORATORYCLIA [id number] [address] Nucleated RBC (Bld) [#/Vol] 10*3/uL Normal <0.01 [facility] Comment on above: Order Comment: Speci men Type: BLOOD SPECIMENOrdering Facility: [facility] Address: [address] [place] [address] Performed By: #### 5 8410-2 ####HAND LABORATORYCLIA [id number] [address] Platelet mean volume (Bld) [Entitic vol] 8.8 fL Low 9.0-12.7 [facility] Comment on above: Order Comment: Speci men Type: BLOOD SPECIMENOrdering Facility: [facility] Address: [address] [place] [address] Performed By: #### 5 8410-2 ####HAND LABORATORYCLIA [id number] [address] Platelets (Bld) [#/Vol] 202 10*3/uL Normal 150-400 [facility] Comment on above: Order Comment: Speci men Type: BLOOD SPECIMENOrdering Facility: [facility] Address: [address] [place] [address] Performed By: #### 5 8410-2 ####HAND LABORATORYCLIA [id number] [address] [place] RBC (Bld) [#/Vol] 3.75 10*6/uL Low 3.90-5.20 [facility] Comment on above: Order Comment: Speci men Type: BLOOD SPECIMENOrdering Facility: [facility] Address: [address] [place] [address] Performed By: #### 5 8410-2 ####HAND LABORATORYCLIA [id number] [address] OF [facility] WBC (Bld) [#/Vol] 6.42 10*3/uL Normal 3.70-11.00 [facility] Comment on above: Order Comment: Speci men Type: BLOOD SPECIMENOrdering Facility: [facility] Address: [address] [place] [address] Performed By: #### 5 8410-2 ####HAND LABORATORYCLIA [id number] [address] [place] CONSULT PROGon 12-09-2023 CONSULT PROG Normal [facility] Comprehensive metabolic 2000 panelon 12-09-2023 Albumin [Mass/Vol] 3.7 g/dL Low 3.9-4.9 [facility] Comment on above: Order Comment: Speci men Type: BLOOD SPECIMENOrdering Facility: [facility] Address: [address] [place] [address] Performed By: #### 2 4323-8 ####HAND LABORATORYCLIA [id number] [place] [address] [place] ALP [Catalytic activity/Vol] 249 U/L High 34-123 [facility] Comment on above: Order Comment: Speci men Type: BLOOD SPECIMENOrdering Facility: [facility] Address: [address] [place] [address] Performed By: #### 2 4323-8 ####HAND LABORATORYCLIA [id number] [address] [place] ALT [Catalytic activity/Vol] 53 U/L High 7-38 [facility] Comment on above: Order Comment: Speci men Type: BLOOD SPECIMENOrdering Facility: [facility] Address: [address] [place] [address] Performed By: #### 2 4323-8 ####HAND LABORATORYCLIA [id number] [place] [address] [place] [facility] Anion gap [Moles/Vol] 5 mmol/L Low 9-18 [facility] Comment on above: Order Comment: Speci men Type: BLOOD SPECIMENOrdering Facility: [facility] Address: [address] [place] [address] Performed By: #### 2 4323-8 ####HAND LABORATORYCLIA [id number] [place] [address] [place] AST [Catalytic activity/Vol] 42 U/L High 13-35 [facility] Comment on above: Order Comment: Speci men Type: BLOOD SPECIMENOrdering Facility: [facility] Address: [address] [place] [address] Performed By: #### 2 4323-8 ####HAND LABORATORYCLIA [id number] [address] Bilirubin [Mass/Vol] 0.2 mg/dL Normal 0.2-1.3 [facility] Comment on above: Order Comment: Speci men Type: BLOOD SPECIMENOrdering Facility: [facility] Address: [address] [place] [address] Performed By: #### 2 4323-8 ####HAND LABORATORYCLIA [id number] [address] STATES [facility] Calcium [Mass/Vol] 9.3 mg/dL Normal 8.5-10.2 [facility] Comment on above: Order Comment: Speci men Type: BLOOD SPECIMENOrdering Facility: [facility] Address: [address] [place] [address] Performed By: #### 2 4323-8 ####HAND LABORATORYCLIA [id number] [address] [place] Chloride [Moles/Vol] 99 mmol/L Normal 97-105 [facility] Comment on above: Order Comment: Speci men Type: BLOOD SPECIMENOrdering Facility: [facility] Address: [address] [place] [address] Performed By: #### 2 4323-8 ####HAND LABORATORYCLIA [id number] [place] [address] CO2 [Moles/Vol] 33 mmol/L High 22-30 [facility] Comment on above: Order Comment: Cesar feliz Type: BLOOD SPECIMENOrdering Facility: [facility] Address: [address] [place] [address] Performed By: #### 2 4323-8 ####HAND LABORATORYCLIA [id number] [address] STATES OF [facility] Creatinine [Mass/Vol] 1.12 mg/dL High 0.58-0.96 [facility] Comment on above: Order Comment: Cesar feliz Type: BLOOD SPECIMENOrdering Facility: [facility] Address: [address] [place] [address] Performed By: #### 2 4323-8 ####[place] LABORATORYCLIA [id number] [address] Creatinine and Glomerular filtration rate.predicted panel (S/P/Bld) 54 mL/min/1.73m??? Low >=60 [facility] Comment on above: Order Comment: Cesar piper Type: BLOOD SPECIMENOrdering Facility: [facility] Address: [address] [place] [address] Result Comment: Sweta mated Glomerular Filtration Rate (eGFR) is calculated using the 2020 CKD-EPI creatinine equation. This equation utilizes serum creatinine, sex, and age as parameters. The creatinine assay has traceable calibration to isotope dilution-mass spectrometry. Refer to KDIGO guidelines for clinical interpretation. In patients with unstable renal function, e.g. those with acute kidney injury, the eGFR may not accurately reflect actual GFR. Performed By: #### 2 4323-8 ####HAND LABORATORYCLIA [id number] [address] Glucose [Mass/Vol] 95 mg/dL Normal 74-99 [facility] Comment on above: Order Comment: Cesar piper Type: BLOOD SPECIMENOrdering Facility: [facility] Address: [address] [place] [address] Result Comment: The [place] Diabetes Association (ADA) provides guidance for cutoff values for fasting glucose and random glucose. The ADA defines fasting as no caloric intake for at least 8 hours. Fasting plasma glucose results between 100 to 125 mg/dL indicate increased risk for diabetes (prediabetes).Fasting plasma glucose results greater than or equal to 126 mg/dL meet the criteria for diagnosis of diabetes. In the absence of unequivocal hyperglycemia, results should be confirmed by repeat testing. In a patient with classic symptoms of hyperglycemia or hyperglycemic crisis, random plasma glucose results greater than or equal to 200 mg/dL meet the criteria for diagnosis of diabetes.Reference: Standards of Medical Care in Diabetes 2016, [place] Diabetes Association. Diabetes Care. 2016.39(Suppl 1). Performed By: #### 2 4323-8 ####HAND LABORATORYCLIA [id number] [place] [address] [place] Potassium [Moles/Vol] 4.1 mmol/L Normal 3.7-5.1 [facility] Comment on above: Order Comment: Holai men Type: BLOOD SPECIMENOrdering Facility: [facility] Address: [address] [place] [address] Performed By: #### 2 4323-8 ####HAND LABORATORYCLIA [id number] [place] [address] [place] Protein [Mass/Vol] 6.2 g/dL Low 6.3-8.0 [facility] Comment on above: Order Comment: Holai men Type: BLOOD SPECIMENOrdering Facility: [facility] Address: [address] [place] [address] Performed By: #### 2 4323-8 ####HAND LABORATORYCLIA [id number] [place] [address] [place] Sodium [Moles/Vol] 137 mmol/L Normal 136-144 [facility] Comment on above: Order Comment: Speci men Type: BLOOD SPECIMENOrdering Facility: [facility] Address: [address] [place] [address] Performed By: #### 2 4323-8 ####HAND LABORATORYCLIA [id number] [place] [address] [place] Urea nitrogen [Mass/Vol] 17 mg/dL Normal 7-21 [facility] Comment on above: Order Comment: Speci men Type: BLOOD SPECIMENOrdering Facility: [facility] Address: [address] [place] [address] Performed By: #### 2 4323-8 ####RENTON LABORATORYCLIA [id number] [place] [address] [place] OPERATIVE NOon 12-09-2023 OPERATIVE NO [facility] SURGICAL PATHOLOGYon 024 CASE REPORT [facility] Comment on above: Order Comment: Speci men Type: TISSUE SPECIMENOrdering Facility: [facility] Address: [address] [place] [address] Result Comment: Surg ica Pathology Report Case: [id number] Provider: Darrell Tejada MD Collected: 12/09/2023 12:10 PMOrdering Location: [facility] Received: 12/09/2023 03:22 PMPathologist: Israel Rosales MDSpecimen: GALLBLADDER Performed By: #### S ####[facility] LABCLIA [id number] [address] [place] CLINICAL HISTORY [facility] Comment on above: Order Comment: Speci men Type: TISSUE SPECIMENOrdering Facility: [facility] Address: [address] [place] [address] Result Comment: Pre- op diagnosis:Choledocholithiasis [K80.50] Performed By: #### S ####[facility] LABCLIA [id number] [address] [place] FINAL DIAGNOSIS [facility] Comment on above: Order Comment: Speci men Type: TISSUE SPECIMENOrdering Facility: [facility] Address: [address] [place] [address] Result Comment: A. G allbladder, cholecystectomy:- Acute and chronic cholecystitis with cholelithiasis. Performed By: #### S ####[facility] LABCLIA [id number] [place] [id number] [place] FINAL PERFORMING LAB [facility] Comment on above: Order Comment: Speci men Type: TISSUE SPECIMENOrdering Facility: [facility] Address: [address] [place] [address] Result Comment: Diag nostic interpretation performed at [facility], [address] [place] [address] CLIA# [id number] Director: Chaz Deras M.D. Performed By: #### S ####[facility] [id number] [address] [place] GROSS DESCRIPTION A. GALLBLADDER Normal [facility] Comment on above: Order Comment: Speci men Type: TISSUE SPECIMENOrdering Facility: [facility] Address: [address] [place] [address] Result Comment: Rece ived in formalin labeled ``gallbladder? is a gallbladder measuring 8.0 x 4.0 x 3.5 cm. The serosal aspect is pink and smooth. A defect is not present. The lumen contains bile. The wall of the gallbladder appears severely thickened along the apex of the fundus measuring up to 1.5 cm. Within this area, are several cyst extractions possibly representing diverticula. Calculi are present, and appear dark brown in color, ranging in size from 0.1-0.2 cm in greatest dimension. A calculus is not impacted within the cystic duct. The mucosa is bile-stained. Decker Operator sections are submitted in two cassettes.Gross examination performed at [facility], [address] [place], [place] [address]IA# [id number] December 10, 2023 9:39 AM Performed By: #### S ####[facility] LAB[facility] [id number] [place] [address] [place] THERAPY NTon 12-09-2023 THERAPY NT Normal [facility] CASE MANAGEMon 12-08-2023 CASE MANAGEM Normal [facility] CBC panel Auto (Bld)on 12-07 Erythrocyte distribution width (RBC) [Ratio] 12.9 % Normal 11.5-15.0 [facility] Comment on above: Order Comment: Speci men Type: BLOOD SPECIMENOrdering Facility: [facility] Address: [address] [place] [address] Performed By: #### 5 8410-2 ####HAND LABORATORYCLIA [id number] [address] Hematocrit (Bld) [Volume fraction] 37.2 % Normal 36.0-46.0 [facility] Comment on above: Order Comment: Speci men Type: BLOOD SPECIMENOrdering Facility: [facility] Address: [address] [place] [address] Performed By: #### 5 8410-2 ####HAND LABORATORYCLIA [id number] [address] Hemoglobin (Bld) [Mass/Vol] 12.0 g/dL Normal 11.5-15.5 [facility] Comment on above: Order Comment: Speci men Type: BLOOD SPECIMENOrdering Facility: [facility] Address: [address] [place] [address] Performed By: #### 5 8410-2 ####HAND LABORATORYCLIA [id number] [address] MCH (RBC) [Entitic mass] 30.4 pg Normal 26.0-34.0 [facility] Comment on above: Order Comment: Speci men Type: BLOOD SPECIMENOrdering Facility: [facility] Address: [address] [place] [address] Performed By: #### 5 8410-2 ####HAND LABORATORYCLIA [id number] [address] MCHC (RBC) [Mass/Vol] 32.3 g/dL Normal 30.5-36.0 [facility] Comment on above: Order Comment: Speci men Type: BLOOD SPECIMENOrdering Facility: [facility] Address: [address] [place] [address] Performed By: #### 5 8410-2 ####HAND LABORATORYCLIA [id number] [address] MCV (RBC) [Entitic vol] 94.2 fL Normal 80.0-100.0 [facility] Comment on above: Order Comment: Speci men Type: BLOOD SPECIMENOrdering Facility: [facility] Address: [address] [place] [address] Performed By: #### 5 8410-2 ####HAND LABORATORYCLIA [id number] [place] [address] [place] Nucleated RBC (Bld) [#/Vol] 10*3/uL Normal <0.01 [facility] Comment on above: Order Comment: Speci men Type: BLOOD SPECIMENOrdering Facility: [facility] Address: [address] [place] [address] Performed By: #### 5 8410-2 ####HAND LABORATORYCLIA [id number] [place] [address] [place] Platelet mean volume (Bld) [Entitic vol] 9.0 fL Normal 9.0-12.7 [facility] Comment on above: Order Comment: Speci men Type: BLOOD SPECIMENOrdering Facility: [facility] Address: [address] [place] [address] Performed By: #### 5 8410-2 ####HAND LABORATORYCLIA [id number] [place] [address] [place] Platelets (Bld) [#/Vol] 233 10*3/uL Normal 150-400 [facility] Comment on above: Order Comment: Speci men Type: BLOOD SPECIMENOrdering Facility: [facility] Address: [address] [place] [address] Performed By: #### 5 8410-2 ####HAND LABORATORYCLIA [id number] [place] [address] [place] RBC (Bld) [#/Vol] 3.95 10*6/uL Normal 3.90-5.20 [facility] Comment on above: Order Comment: Speci men Type: BLOOD SPECIMENOrdering Facility: [facility] Address: [address] [place] [address] Performed By: #### 5 8410-2 ####HAND LABORATORYCLIA [id number] [place] [address] [place] WBC (Bld) [#/Vol] 9.20 10*3/uL Normal 3.70-11.00 [facility] Comment on above: Order Comment: Speci men Type: BLOOD SPECIMENOrdering Facility: [facility] Address: [address] [place] [address] Performed By: #### 5 8410-2 ####HAND LABORATORYCLIA [id number] [place] [address] [place] CONSULTon 12-08-2023 CONSULT Normal [facility] CONSULT PROGon 12-08-2023 CONSULT PROG Normal [facility] Comprehensive metabolic 2000 panelon 12-08-2023 Albumin [Mass/Vol] 4.0 g/dL Normal 3.9-4.9 [facility] Comment on above: Order Comment: Speci men Type: BLOOD SPECIMENOrdering Facility: [facility] Address: [address] [place] [address] Performed By: #### 2 4323-8 ####HAND LABORATORYCLIA [id number] [place] [address] [place] ALP [Catalytic activity/Vol] 272 U/L High 34-123 [facility] Comment on above: Order Comment: Speci men Type: BLOOD SPECIMENOrdering Facility: [facility] Address: [address] [place] [address] Performed By: #### 2 4323-8 ####HAND LABORATORYCLIA [id number] [place] [address] [place] ALT [Catalytic activity/Vol] 75 U/L High 7-38 [facility] Comment on above: Order Comment: Speci men Type: BLOOD SPECIMENOrdering Facility: [facility] Address: [address] [place] [address] Performed By: #### 2 4323-8 ####HAND LABORATORYCLIA [id number] [place] [address] [place] Anion gap [Moles/Vol] 8 mmol/L Low 9-18 [facility] Comment on above: Order Comment: Speci men Type: BLOOD SPECIMENOrdering Facility: [facility] Address: [address] [place] [address] Performed By: #### 2 4323-8 ####HAND LABORATORYCLIA [id number] [place] [address] [place] AST [Catalytic activity/Vol] 73 U/L High 13-35 [facility] Comment on above: Order Comment: Speci men Type: BLOOD SPECIMENOrdering Facility: [facility] Address: [address] [place] [address] Performed By: #### 2 4323-8 ####HAND LABORATORYCLIA [id number] [place] [address] [place] Bilirubin [Mass/Vol] 0.2 mg/dL Normal 0.2-1.3 [facility] Comment on above: Order Comment: Speci men Type: BLOOD SPECIMENOrdering Facility: [facility] Address: [address] [place] [address] Performed By: #### 2 4323-8 ####HAND LABORATORYCLIA [id number] [place] [address] [place] Calcium [Mass/Vol] 9.7 mg/dL Normal 8.5-10.2 [facility] Comment on above: Order Comment: Speci men Type: BLOOD SPECIMENOrdering Facility: [facility] Address: [address] [place] [address] Performed By: #### 2 4323-8 ####HAND LABORATORYCLIA [id number] [place] [address] [place] Chloride [Moles/Vol] 103 mmol/L Normal 97-105 [facility] Comment on above: Order Comment: Speci men Type: BLOOD SPECIMENOrdering Facility: [facility] Address: [address] [place] [address] Performed By: #### 2 4323-8 ####HAND LABORATORYCLIA [id number] [place] [address] [place] CO2 [Moles/Vol] 29 mmol/L Normal 22-30 [facility] Comment on above: Order Comment: Speci men Type: BLOOD SPECIMENOrdering Facility: [facility] Address: [address] [place] [address] Performed By: #### 2 4323-8 ####HAND LABORATORYCLIA [id number] [address] [facility] Creatinine [Mass/Vol] 0.82 mg/dL Normal 0.58-0.96 [facility] Comment on above: Order Comment: Cesar piper Type: BLOOD SPECIMENOrdering Facility: [facility] Address: [address] [place] [address] Performed By: #### 2 4323-8 ####[place] LABORATORYCLIA [id number] [address] Creatinine and Glomerular filtration rate.predicted panel (S/P/Bld) 79 mL/min/1.73m??? Normal >=60 [facility] Comment on above: Order Comment: Cesar piper Type: BLOOD SPECIMENOrdering Facility: [facility] Address: [address] [place] [address] Result Comment: Sweta mated Glomerular Filtration Rate (eGFR) is calculated using the 2020 CKD-EPI creatinine equation. This equation utilizes serum creatinine, sex, and age as parameters. The creatinine assay has traceable calibration to isotope dilution-mass spectrometry. Refer to KDIGO guidelines for clinical interpretation. In patients with unstable renal function, e.g. those with acute kidney injury, the eGFR may not accurately reflect actual GFR. Performed By: #### 2 4323-8 ####HAND LABORATORYCLIA [id number] [address] STATES [facility] Glucose [Mass/Vol] 116 mg/dL High 74-99 [facility] Comment on above: Order Comment: Cesar feliz Type: BLOOD SPECIMENOrdering Facility: [facility] Address: [address] [place] [address] Result Comment: The [place] Diabetes Association (ADA) provides guidance for cutoff values for fasting glucose and random glucose. The ADA defines fasting as no caloric intake for at least 8 hours. Fasting plasma glucose results between 100 to 125 mg/dL indicate increased risk for diabetes (prediabetes).Fasting plasma glucose results greater than or equal to 126 mg/dL meet the criteria for diagnosis of diabetes. In the absence of unequivocal hyperglycemia, results should be confirmed by repeat testing. In a patient with classic symptoms of hyperglycemia or hyperglycemic crisis, random plasma glucose results greater than or equal to 200 mg/dL meet the criteria for diagnosis of diabetes.Reference: Standards of Medical Care in Diabetes 2016, [place] Diabetes Association. Diabetes Care. 2016.39(Suppl 1). Performed By: #### 2 4323-8 ####HAND LABORATORYCLIA [id number] [place] [address] [place] Potassium [Moles/Vol] 3.9 mmol/L Normal 3.7-5.1 [facility] Comment on above: Order Comment: Speci men Type: BLOOD SPECIMENOrdering Facility: [facility] Address: [address] [place] [address] Performed By: #### 2 4323-8 ####HAND LABORATORYCLIA [id number] [place] [address] [place] Protein [Mass/Vol] 6.7 g/dL Normal 6.3-8.0 [facility] Comment on above: Order Comment: Speci men Type: BLOOD SPECIMENOrdering Facility: [facility] Address: [address] [place] [address] Performed By: #### 2 4323-8 ####HAND LABORATORYCLIA [id number] [place] [address] [place] Sodium [Moles/Vol] 140 mmol/L Normal 136-144 [facility] Comment on above: Order Comment: Speci men Type: BLOOD SPECIMENOrdering Facility: [facility] Address: [address] [place] [address] Performed By: #### 2 4323-8 ####HAND LABORATORYCLIA [id number] [place] [address] [place] Urea nitrogen [Mass/Vol] 16 mg/dL Normal 7-21 [facility] Comment on above: Order Comment: Speci men Type: BLOOD SPECIMENOrdering Facility: [facility] Address: [address] [place] [address] Performed By: #### 2 4323-8 ####HAND LABORATORYCLIA [id number] [place] [address] [place] NURSING PROGon 12-08-2023 NURSING PROG [facility] ANES POSTPROC EVALon 024 ANES POSTPROC EVAL Normal [facility] ANES PRE-OPon 12-07-2023 ANES PRE-OP Normal [facility] CASE MANAGEMon 12-07-2023 CASE MANAGEM Normal [facility] CBC panel Auto (Bld)on 12-06 Erythrocyte distribution width (RBC) [Ratio] 13.2 % Normal 11.5-15.0 [facility] Comment on above: Order Comment: Speci feliz Type: BLOOD SPECIMENOrdering Facility: [facility] Address: [address] [place] [address] Performed By: #### 5 8410-2 ####HAND LABORATORYCLIA [id number] [address] OF [facility] Hematocrit (Bld) [Volume fraction] 38.0 % Normal 36.0-46.0 [facility] Comment on above: Order Comment: Speci men Type: BLOOD SPECIMENOrdering Facility: [facility] Address: [address] [place] [address] Performed By: #### 5 8410-2 ####HAND LABORATORYCLIA [id number] [address] [place] Hemoglobin (Bld) [Mass/Vol] 11.7 g/dL Normal 11.5-15.5 [facility] Comment on above: Order Comment: Speci men Type: BLOOD SPECIMENOrdering Facility: [facility] Address: [address] [place] [address] Performed By: #### 5 8410-2 ####HAND LABORATORYCLIA [id number] [address] [place] MCH (RBC) [Entitic mass] 29.7 pg Normal 26.0-34.0 [facility] Comment on above: Order Comment: Speci men Type: BLOOD SPECIMENOrdering Facility: [facility] Address: [address] [place] [address] Performed By: #### 5 8410-2 ####HAND LABORATORYCLIA [id number] [address] [place] MCHC (RBC) [Mass/Vol] 30.8 g/dL Normal 30.5-36.0 [facility] Comment on above: Order Comment: Speci men Type: BLOOD SPECIMENOrdering Facility: [facility] Address: [address] [place] [address] Performed By: #### 5 8410-2 ####HAND LABORATORYCLIA [id number] [place] [address] [place] MCV (RBC) [Entitic vol] 96.4 fL Normal 80.0-100.0 [facility] Comment on above: Order Comment: Speci men Type: BLOOD SPECIMENOrdering Facility: [facility] Address: [address] [place] [address] Performed By: #### 5 8410-2 ####HAND LABORATORYCLIA [id number] [place] [address] [place] Nucleated RBC (Bld) [#/Vol] 10*3/uL Normal <0.01 [facility] Comment on above: Order Comment: Speci men Type: BLOOD SPECIMENOrdering Facility: [facility] Address: [address] [place] [address] Performed By: #### 5 8410-2 ####HAND LABORATORYCLIA [id number] [place] [address] [place] Platelet mean volume (Bld) [Entitic vol] 9.0 fL Normal 9.0-12.7 [facility] Comment on above: Order Comment: Speci men Type: BLOOD SPECIMENOrdering Facility: [facility] Address: [address] [place] [address] Performed By: #### 5 8410-2 ####HAND LABORATORYCLIA [id number] [place] [address] [place] Platelets (Bld) [#/Vol] 210 10*3/uL Normal 150-400 [facility] Comment on above: Order Comment: Speci men Type: BLOOD SPECIMENOrdering Facility: [facility] Address: [facility] [place] [address] Performed By: #### 5 8410-2 ####HAND LABORATORYCLIA [id number] [place] [address] [place] RBC (Bld) [#/Vol] 3.94 10*6/uL Normal 3.90-5.20 [facility] Comment on above: Order Comment: Speci men Type: BLOOD SPECIMENOrdering Facility: [facility] Address: [address] [place] [address] Performed By: #### 5 8410-2 ####HAND LABORATORYCLIA [id number] [address] WBC (Bld) [#/Vol] 7.53 10*3/uL Normal 3.70-11.00 [facility] Comment on above: Order Comment: Speci men Type: BLOOD SPECIMENOrdering Facility: [facility] Address: [address] [place] [address] Performed By: #### 5 8410-2 ####HAND LABORATORYCLIA [id number] [address] Comprehensive metabolic 2000 panelon 12-07-2023 Albumin [Mass/Vol] 3.6 g/dL Low 3.9-4.9 [facility] Comment on above: Order Comment: Speci men Type: BLOOD SPECIMENOrdering Facility: [facility] Address: [address] [place] [address] Performed By: #### 2 4323-8 ####HAND LABORATORYCLIA [id number] [address] ALP [Catalytic activity/Vol] 178 U/L High 34-123 [facility] Comment on above: Order Comment: Speci men Type: BLOOD SPECIMENOrdering Facility: [facility] Address: [address] [place] [address] Performed By: #### 2 4323-8 ####HAND LABORATORYCLIA [id number] [address] ALT [Catalytic activity/Vol] 10 U/L Normal 7-38 [facility] Comment on above: Order Comment: Speci men Type: BLOOD SPECIMENOrdering Facility: [facility] Address: [address] [place] [address] Performed By: #### 2 4323-8 ####AHND LABORATORYCLIA [id number] [address] Anion gap [Moles/Vol] 6 mmol/L Low 9-18 [facility] Comment on above: Order Comment: Speci men Type: BLOOD SPECIMENOrdering Facility: [facility] Address: [address] [place] [address] [place] [address] Performed By: #### 2 4323-8 ####HAND LABORATORYCLIA [id number] [place] [address] [place] AST [Catalytic activity/Vol] 16 U/L Normal 13-35 [facility] Comment on above: Order Comment: Speci men Type: BLOOD SPECIMENOrdering Facility: [facility] Address: [address] [place] [address] Performed By: #### 2 4323-8 ####HAND LABORATORYCLIA [id number] [place] [address] [place] Bilirubin [Mass/Vol] 0.2 mg/dL Normal 0.2-1.3 [facility] Comment on above: Order Comment: Speci men Type: BLOOD SPECIMENOrdering Facility: [facility] Address: [address] [place] [address] Performed By: #### 2 4323-8 ####HAND LABORATORYCLIA [id number] [place] [address] [place] Calcium [Mass/Vol] 9.6 mg/dL Normal 8.5-10.2 [facility] Comment on above: Order Comment: Speci men Type: BLOOD SPECIMENOrdering Facility: [facility] Address: [address] [place] [address] Performed By: #### 2 4323-8 ####HAND LABORATORYCLIA [id number] [place] [address] [place] Chloride [Moles/Vol] 100 mmol/L Normal 97-105 [facility] Comment on above: Order Comment: Speci men Type: BLOOD SPECIMENOrdering Facility: [facility] Address: [address] [place] [address] Performed By: #### 2 4323-8 ####HAND LABORATORYCLIA [id number] [place] [address] [place] CO2 [Moles/Vol] 34 mmol/L High 22-30 [facility] Comment on above: Order Comment: Speci men Type: BLOOD SPECIMENOrdering Facility: [facility] Address: [address] [place] [address] Performed By: #### 2 4323-8 ####HAND LABORATORYCLIA [id number] [address] STATES [facility] Creatinine [Mass/Vol] 1.12 mg/dL High 0.58-0.96 [facility] Comment on above: Order Comment: Cesar piper Type: BLOOD SPECIMENOrdering Facility: [facility] Address: [address] [place] [address] Performed By: #### 2 4323-8 ####HAND LABORATORYCLIA [id number] [address] Creatinine and Glomerular filtration rate.predicted panel (S/P/Bld) 54 mL/min/1.73m??? Low >=60 [facility] Comment on above: Order Comment: Cesar feliz Type: BLOOD SPECIMENOrdering Facility: [facility] Address: [address] [place] [address] Result Comment: Sweta mated Glomerular Filtration Rate (eGFR) is calculated using the 2020 CKD-EPI creatinine equation. This equation utilizes serum creatinine, sex, and age as parameters. The creatinine assay has traceable calibration to isotope dilution-mass spectrometry. Refer to KDIGO guidelines for clinical interpretation. In patients with unstable renal function, e.g. those with acute kidney injury, the eGFR may not accurately reflect actual GFR. Performed By: #### 2 4323-8 ####HAND LABORATORYCLIA [id number] [address] STATES OF [facility] Glucose [Mass/Vol] 90 mg/dL Normal 74-99 [facility] Comment on above: Order Comment: Holachristiano piper Type: BLOOD SPECIMENOrdering Facility: [facility] Address: [address] [place] [address] Result Comment: The [place] Diabetes Association (ADA) provides guidance for cutoff values for fasting glucose and random glucose. The ADA defines fasting as no caloric intake for at least 8 hours. Fasting plasma glucose results between 100 to 125 mg/dL indicate increased risk for diabetes (prediabetes).Fasting plasma glucose results greater than or equal to 126 mg/dL meet the criteria for diagnosis of diabetes. In the absence of unequivocal hyperglycemia, results should be confirmed by repeat testing. In a patient with classic symptoms of hyperglycemia or hyperglycemic crisis, random plasma glucose results greater than or equal to 200 mg/dL meet the criteria for diagnosis of diabetes.Reference: Standards of Medical Care in Diabetes 2016, [place] Diabetes Association. Diabetes Care. 2016.39(Suppl 1). Performed By: #### 2 4323-8 ####HAND LABORATORYCLIA [id number] [place] [address] [place] Potassium [Moles/Vol] 3.9 mmol/L Normal 3.7-5.1 [facility] Comment on above: Order Comment: Cesar piper Type: BLOOD SPECIMENOrdering Facility: [facility] Address: [address] [place] [address] Performed By: #### 2 4323-8 ####HAND LABORATORYCLIA [id number] [place] [address] [place] Protein [Mass/Vol] 6.3 g/dL Normal 6.3-8.0 [facility] Comment on above: Order Comment: Speci feliz Type: BLOOD SPECIMENOrdering Facility: [facility] Address: [address] [place] [address] Performed By: #### 2 4323-8 ####HAND LABORATORYCLIA [id number] [place] [address] [place] Sodium [Moles/Vol] 140 mmol/L Normal 136-144 [facility] Comment on above: Order Comment: Holai men Type: BLOOD SPECIMENOrdering Facility: [facility] Address: [address] [place] [address] Performed By: #### 2 4323-8 ####HAND LABORATORYCLIA [id number] [place] [address] [place] Urea nitrogen [Mass/Vol] 16 mg/dL Normal 7-21 [facility] Comment on above: Order Comment: Holai men Type: BLOOD SPECIMENOrdering Facility: [facility] Address: [address] [place] [address] Performed By: #### 2 4323-8 ####HAND LABORATORYCLIA [id number] [place] [address] [place] ERCPon 12-07-2023 ERCP Normal [facility] NURSING PROGon 12-07-2023 NURSING PROG Normal [facility] NUTRITIONon 12-07-2023 NUTRITION Normal [facility] THERAPY NTon 12-07-2023 THERAPY NT Normal [facility] THERAPY NT Normal [facility] XR FLUOROSCOPYon 12-07-2023 XR FLUOROSCOPY Normal [facility] CBC panel Auto (Bld)on 12-05 Erythrocyte distribution width (RBC) [Ratio] 13.4 % Normal 11.5-15.0 [facility] Comment on above: Order Comment: Speci men Type: BLOOD SPECIMENOrdering Facility: [facility] Address: [address] [place] [address] Performed By: #### 5 8410-2 ####HAND LABORATORYCLIA [id number] [address] [place] Hematocrit (Bld) [Volume fraction] 40.6 % Normal 36.0-46.0 [facility] Comment on above: Order Comment: Speci men Type: BLOOD SPECIMENOrdering Facility: [facility] Address: [address] [place] [address] Performed By: #### 5 8410-2 ####HAND LABORATORYCLIA [id number] [place] [address] [place] Hemoglobin (Bld) [Mass/Vol] 12.8 g/dL Normal 11.5-15.5 [facility] Comment on above: Order Comment: Speci men Type: BLOOD SPECIMENOrdering Facility: [facility] Address: [address] [place] [address] Performed By: #### 5 8410-2 ####HAND LABORATORYCLIA [id number] [address] [place] MCH (RBC) [Entitic mass] 30.2 pg Normal 26.0-34.0 [facility] Comment on above: Order Comment: Speci men Type: BLOOD SPECIMENOrdering Facility: [facility] Address: [address] [place] [address] Performed By: #### 5 8410-2 ####HAND LABORATORYCLIA [id number] [address] MCHC (RBC) [Mass/Vol] 31.5 g/dL Normal 30.5-36.0 [facility] Comment on above: Order Comment: Speci men Type: BLOOD SPECIMENOrdering Facility: [facility] Address: [address] [place] [address] Performed By: #### 5 8410-2 ####HAND LABORATORYCLIA [id number] [address] [place] MCV (RBC) [Entitic vol] 95.8 fL Normal 80.0-100.0 [facility] Comment on above: Order Comment: Speci men Type: BLOOD SPECIMENOrdering Facility: [facility] Address: [address] [place] [address] Performed By: #### 5 8410-2 ####HAND LABORATORYCLIA [id number] [address] [place] Nucleated RBC (Bld) [#/Vol] 10*3/uL Normal <0.01 [facility] Comment on above: Order Comment: Speci men Type: BLOOD SPECIMENOrdering Facility: [facility] Address: [address] [place] [address] Performed By: #### 5 8410-2 ####HAND LABORATORYCLIA [id number] [address] OF [place] Platelet mean volume (Bld) [Entitic vol] 8.9 fL Low 9.0-12.7 [facility] Comment on above: Order Comment: Speci men Type: BLOOD SPECIMENOrdering Facility: [facility] Address: [address] [place] [address] Performed By: #### 5 8410-2 ####HAND LABORATORYCLIA [id number] [address] [place] Platelets (Bld) [#/Vol] 231 10*3/uL Normal 150-400 [facility] Comment on above: Order Comment: Speci men Type: BLOOD SPECIMENOrdering Facility: [facility] Address: [address] [place] [address] Performed By: #### 5 8410-2 ####HAND LABORATORYCLIA [id number] [address] OF [place] RBC (Bld) [#/Vol] 4.24 10*6/uL Normal 3.90-5.20 [facility] Comment on above: Order Comment: Speci men Type: BLOOD SPECIMENOrdering Facility: [facility] Address: [address] [place] [address] Performed By: #### 5 8410-2 ####HAND LABORATORYCLIA [id number] [address] WBC (Bld) [#/Vol] 7.50 10*3/uL Normal 3.70-11.00 [facility] Comment on above: Order Comment: Speci men Type: BLOOD SPECIMENOrdering Facility: [facility] Address: [address] [place] [address] Performed By: #### 5 8410-2 ####HAND LABORATORYCLIA [id number] [address] Comprehensive metabolic 2000 panelon 12-06-2023 Albumin [Mass/Vol] 3.9 g/dL Normal 3.9-4.9 [facility] Comment on above: Order Comment: Speci men Type: BLOOD SPECIMENOrdering Facility: [facility] Address: [address] [place] [address] Performed By: #### 2 4323-8 ####HAND LABORATORYCLIA [id number] [address] ALP [Catalytic activity/Vol] 182 U/L High 34-123 [facility] Comment on above: Order Comment: Speci men Type: BLOOD SPECIMENOrdering Facility: [facility] Address: [address] [place] [address] Performed By: #### 2 4323-8 ####HAND LABORATORYCLIA [id number] [address] ALT [Catalytic activity/Vol] 13 U/L Normal 7-38 [facility] Comment on above: Order Comment: Speci men Type: BLOOD SPECIMENOrdering Facility: [facility] Address: [address] [place] [address] Performed By: #### 2 4323-8 ####HAND LABORATORYCLIA [id number] [place] [address] [place] Anion gap [Moles/Vol] 8 mmol/L Low 9-18 [facility] Comment on above: Order Comment: Speci men Type: BLOOD SPECIMENOrdering Facility: [facility] Address: [address] [place] [address] Performed By: #### 2 4323-8 ####HAND LABORATORYCLIA [id number] [address] [place] AST [Catalytic activity/Vol] 20 U/L Normal 13-35 [facility] Comment on above: Order Comment: Speci men Type: BLOOD SPECIMENOrdering Facility: [facility] Address: [address] [place] [address] Performed By: #### 2 4323-8 ####HAND LABORATORYCLIA [id number] [place] [address] [place] Bilirubin [Mass/Vol] 0.2 mg/dL Normal 0.2-1.3 [facility] Comment on above: Order Comment: Speci men Type: BLOOD SPECIMENOrdering Facility: [facility] Address: [address] [place] [address] Performed By: #### 2 4323-8 ####HAND LABORATORYCLIA [id number] [address] [place] Calcium [Mass/Vol] 9.4 mg/dL Normal 8.5-10.2 [facility] Comment on above: Order Comment: Speci men Type: BLOOD SPECIMENOrdering Facility: [facility] Address: [address] [place] [address] Performed By: #### 2 4323-8 ####HAND LABORATORYCLIA [id number] [address] [place] Chloride [Moles/Vol] 102 mmol/L Normal 97-105 [facility] Comment on above: Order Comment: Speci men Type: BLOOD SPECIMENOrdering Facility: [facility] Address: [address] [place] [address] Performed By: #### 2 4323-8 ####HAND LABORATORYCLIA [id number] [place] [address] [place] CO2 [Moles/Vol] 32 mmol/L High 22-30 [facility] Comment on above: Order Comment: Cesar piper Type: BLOOD SPECIMENOrdering Facility: [facility] Address: [address] [place] [address] Performed By: #### 2 4323-8 ####HAND LABORATORYCLIA [id number] [address] STATES OF [facility] Creatinine [Mass/Vol] 0.94 mg/dL Normal 0.58-0.96 [facility] Comment on above: Order Comment: Cesar piper Type: BLOOD SPECIMENOrdering Facility: [facility] Address: [address] [place] [address] Performed By: #### 2 4323-8 ####HAND LABORATORYCLIA [id number] [address] Creatinine and Glomerular filtration rate.predicted panel (S/P/Bld) 67 mL/min/1.73m??? Normal >=60 [facility] Comment on above: Order Comment: Cesar piper Type: BLOOD SPECIMENOrdering Facility: [facility] Address: [address] [place] [address] Result Comment: Sweta mated Glomerular Filtration Rate (eGFR) is calculated using the 2020 CKD-EPI creatinine equation. This equation utilizes serum creatinine, sex, and age as parameters. The creatinine assay has traceable calibration to isotope dilution-mass spectrometry. Refer to KDIGO guidelines for clinical interpretation. In patients with unstable renal function, e.g. those with acute kidney injury, the eGFR may not accurately reflect actual GFR. Performed By: #### 2 4323-8 ####HAND LABORATORYCLIA [id number] [address] STATES OF [facility] Glucose [Mass/Vol] 106 mg/dL High 74-99 [facility] Comment on above: Order Comment: Cesar piper Type: BLOOD SPECIMENOrdering Facility: [facility] Address: [address] [place] [address] Result Comment: The [place] Diabetes Association (ADA) provides guidance for cutoff values for fasting glucose and random glucose. The ADA defines fasting as no caloric intake for at least 8 hours. Fasting plasma glucose results between 100 to 125 mg/dL indicate increased risk for diabetes (prediabetes).Fasting plasma glucose results greater than or equal to 126 mg/dL meet the criteria for diagnosis of diabetes. In the absence of unequivocal hyperglycemia, results should be confirmed by repeat testing. In a patient with classic symptoms of hyperglycemia or hyperglycemic crisis, random plasma glucose results greater than or equal to 200 mg/dL meet the criteria for diagnosis of diabetes.Reference: Standards of Medical Care in Diabetes 2016, [place] Diabetes Association. Diabetes Care. 2016.39(Suppl 1). Performed By: #### 2 4323-8 ####HAND LABORATORYCLIA [id number] [place] [address] [place] Potassium [Moles/Vol] 3.7 mmol/L Normal 3.7-5.1 [facility] Comment on above: Order Comment: Cesar piper Type: BLOOD SPECIMENOrdering Facility: [facility] Address: [address] [place] [address] Performed By: #### 2 4323-8 ####HAND LABORATORYCLIA [id number] [place] [address] [place] Protein [Mass/Vol] 6.6 g/dL Normal 6.3-8.0 [facility] Comment on above: Order Comment: Cesar [facility] Type: BLOOD SPECIMENOrdering Facility: [facility] Address: [address] [place] [address] Performed By: #### 2 4323-8 ####HAND LABORATORYCLIA [id number] [place] [address] [place] Sodium [Moles/Vol] 142 mmol/L Normal 136-144 [facility] Comment on above: Order Comment: Cesar piper Type: BLOOD SPECIMENOrdering Facility: [facility] Address: [address] [place] [address] Performed By: #### 2 4323-8 ####HAND LABORATORYCLIA [id number] [place] [address] [place] Urea nitrogen [Mass/Vol] 12 mg/dL Normal 7-21 [facility] Comment on above: Order Comment: Speci men Type: BLOOD SPECIMENOrdering Facility: [facility] Address: [address] [place] [address] Performed By: #### 2 4323-8 ####HAND LABORATORYCLIA [id number] [address] [place] THERAPY NTon 12-06-2023 THERAPY NT Normal [facility] THERAPY NT Normal [facility] CBC panel Auto (Bld)on 12-04 Erythrocyte distribution width (RBC) [Ratio] 13.3 % Normal 11.5-15.0 [facility] Comment on above: Order Comment: Speci men Type: BLOOD SPECIMENOrdering Facility: [facility] Address: [address] [place] [address] Performed By: #### 5 8410-2 ####HAND LABORATORYCLIA [id number] [address] [place] Hematocrit (Bld) [Volume fraction] 39.1 % Normal 36.0-46.0 [facility] Comment on above: Order Comment: Speci men Type: BLOOD SPECIMENOrdering Facility: [facility] Address: [address] [place] [address] Performed By: #### 5 8410-2 ####HAND LABORATORYCLIA [id number] [address] [place] Hemoglobin (Bld) [Mass/Vol] 12.6 g/dL Normal 11.5-15.5 [facility] Comment on above: Order Comment: Speci men Type: BLOOD SPECIMENOrdering Facility: [facility] Address: [address] [place] [address] Performed By: #### 5 8410-2 ####HAND LABORATORYCLIA [id number] [address] [place] MCH (RBC) [Entitic mass] 30.7 pg Normal 26.0-34.0 [facility] Comment on above: Order Comment: Speci men Type: BLOOD SPECIMENOrdering Facility: [facility] Address: [address] [place] [address] Performed By: #### 5 8410-2 ####HAND LABORATORYCLIA [id number] [address] [place] MCHC (RBC) [Mass/Vol] 32.2 g/dL Normal 30.5-36.0 [facility] Comment on above: Order Comment: Speci men Type: BLOOD SPECIMENOrdering Facility: [facility] Address: [address] [place] [address] Performed By: #### 5 8410-2 ####HAND LABORATORYCLIA [id number] [place] [address] [place] MCV (RBC) [Entitic vol] 95.1 fL Normal 80.0-100.0 [facility] Comment on above: Order Comment: Speci men Type: BLOOD SPECIMENOrdering Facility: [facility] Address: [address] [place] [address] Performed By: #### 5 8410-2 ####HAND LABORATORYCLIA [id number] [address] [place] Nucleated RBC (Bld) [#/Vol] 10*3/uL Normal <0.01 [facility] Comment on above: Order Comment: Speci men Type: BLOOD SPECIMENOrdering Facility: [facility] Address: [address] [place] [address] Performed By: #### 5 8410-2 ####HAND LABORATORYCLIA [id number] [address] [place] Platelet mean volume (Bld) [Entitic vol] 9.4 fL Normal 9.0-12.7 [facility] Comment on above: Order Comment: Speci men Type: BLOOD SPECIMENOrdering Facility: [facility] Address: [address] [place] [address] Performed By: #### 5 8410-2 ####HAND LABORATORYCLIA [id number] [address] [place] Platelets (Bld) [#/Vol] 219 10*3/uL Normal 150-400 [facility] Comment on above: Order Comment: Speci men Type: BLOOD SPECIMENOrdering Facility: [facility] Address: [address] [place] [address], [place] [address] Performed By: #### 5 8410-2 ####HAND LABORATORYCLIA [id number] [address] RBC (Bld) [#/Vol] 4.11 10*6/uL Normal 3.90-5.20 [facility] Comment on above: Order Comment: Speci men Type: BLOOD SPECIMENOrdering Facility: [facility] Address: [address] [place] [address] Performed By: #### 5 8410-2 ####HAND LABORATORYCLIA [id number] [address] WBC (Bld) [#/Vol] 6.13 10*3/uL Normal 3.70-11.00 [facility] Comment on above: Order Comment: Speci men Type: BLOOD SPECIMENOrdering Facility: [facility] Address: [address] [place] [address] Performed By: #### 5 8410-2 ####HAND LABORATORYCLIA [id number] [address] Comprehensive metabolic 2000 panelon 12-05-2023 Albumin [Mass/Vol] 3.6 g/dL Low 3.9-4.9 [facility] Comment on above: Order Comment: Speci men Type: BLOOD SPECIMENOrdering Facility: [facility] Address: [address] [place] [address] Performed By: #### 2 4323-8 ####HAND LABORATORYCLIA [id number] [address] ALP [Catalytic activity/Vol] 170 U/L High 34-123 [facility] Comment on above: Order Comment: Speci men Type: BLOOD SPECIMENOrdering Facility: [facility] Address: [address] [place] [address] Performed By: #### 2 4323-8 ####HAND LABORATORYCLIA [id number] [address] ALT [Catalytic activity/Vol] 13 U/L Normal 7-38 [facility] Comment on above: Order Comment: Speci men Type: BLOOD SPECIMENOrdering Facility: [facility] Address: [address] [place] [address] Performed By: #### 2 4323-8 ####HAND LABORATORYCLIA [id number] [place] [address] [place] [facility] Anion gap [Moles/Vol] 7 mmol/L Low 9-18 [facility] Comment on above: Order Comment: Speci men Type: BLOOD SPECIMENOrdering Facility: [facility] Address: [address] [place] [address] Performed By: #### 2 4323-8 ####HAND LABORATORYCLIA [id number] [address] [place] AST [Catalytic activity/Vol] 20 U/L Normal 13-35 [facility] Comment on above: Order Comment: Speci men Type: BLOOD SPECIMENOrdering Facility: [facility] Address: [address] [place] [address] Performed By: #### 2 4323-8 ####HAND LABORATORYCLIA [id number] [place] [address] [place] Bilirubin [Mass/Vol] 0.2 mg/dL Normal 0.2-1.3 [facility] Comment on above: Order Comment: Speci men Type: BLOOD SPECIMENOrdering Facility: [facility] Address: [address] [place] [address] Performed By: #### 2 4323-8 ####HAND LABORATORYCLIA [id number] [address] [place] Calcium [Mass/Vol] 9.6 mg/dL Normal 8.5-10.2 [facility] Comment on above: Order Comment: Speci men Type: BLOOD SPECIMENOrdering Facility: [facility] Address: [address] [place] [address] Performed By: #### 2 4323-8 ####HAND LABORATORYCLIA [id number] [place] [address] [place] Chloride [Moles/Vol] 103 mmol/L Normal 97-105 [facility] Comment on above: Order Comment: Speci men Type: BLOOD SPECIMENOrdering Facility: [facility] Address: [address] [place] [address] Performed By: #### 2 4323-8 ####HAND LABORATORYCLIA [id number] [place] [address] [place] CO2 [Moles/Vol] 32 mmol/L High 22-30 [facility] Comment on above: Order Comment: Speci men Type: BLOOD SPECIMENOrdering Facility: [facility] Address: [address] [place] [address] Performed By: #### 2 4323-8 ####HAND LABORATORYCLIA [id number] [place] [address] [place] Creatinine [Mass/Vol] 0.99 mg/dL High 0.58-0.96 [facility] Comment on above: Order Comment: Holai men Type: BLOOD SPECIMENOrdering Facility: [facility] Address: [address] [place] [address] Performed By: #### 2 4323-8 ####HAND LABORATORYCLIA [id number] [address] Creatinine and Glomerular filtration rate.predicted panel (S/P/Bld) 63 mL/min/1.73m??? Normal >=60 [facility] Comment on above: Order Comment: Cesar piper Type: BLOOD SPECIMENOrdering Facility: [facility] Address: [address] [place] [address] Result Comment: Sweta mated Glomerular Filtration Rate (eGFR) is calculated using the 2020 CKD-EPI creatinine equation. This equation utilizes serum creatinine, sex, and age as parameters. The creatinine assay has traceable calibration to isotope dilution-mass spectrometry. Refer to KDIGO guidelines for clinical interpretation. In patients with unstable renal function, e.g. those with acute kidney injury, the eGFR may not accurately reflect actual GFR. Performed By: #### 2 4323-8 ####HAND LABORATORYCLIA [id number] [place] [id number] [place] Glucose [Mass/Vol] 95 mg/dL Normal 74-99 [facility] Comment on above: Order Comment: Cesar men Type: BLOOD SPECIMENOrdering Facility: [facility] Address: [address] [place] [address] Result Comment: The [place] Diabetes Association (ADA) provides guidance for cutoff values for fasting glucose and random glucose. The ADA defines fasting as no caloric intake for at least 8 hours. Fasting plasma glucose results between 100 to 125 mg/dL indicate increased risk for diabetes (prediabetes).Fasting plasma glucose results greater than or equal to 126 mg/dL meet the criteria for diagnosis of diabetes. In the absence of unequivocal hyperglycemia, results should be confirmed by repeat testing. In a patient with classic symptoms of hyperglycemia or hyperglycemic crisis, random plasma glucose results greater than or equal to 200 mg/dL meet the criteria for diagnosis of diabetes.Reference: Standards of Medical Care in Diabetes 2016, [place] Diabetes Association. Diabetes Care. 2016.39(Suppl 1). Performed By: #### 2 4323-8 ####HAND LABORATORYCLIA [id number] [place] [address] [place] Potassium [Moles/Vol] 3.9 mmol/L Normal 3.7-5.1 [facility] Comment on above: Order Comment: Speci men Type: BLOOD SPECIMENOrdering Facility: [facility] Address: [address] [place] [address] Performed By: #### 2 4323-8 ####HAND LABORATORYCLIA [id number] [place] [address] [place] Protein [Mass/Vol] 6.4 g/dL Normal 6.3-8.0 [facility] Comment on above: Order Comment: Speci men Type: BLOOD SPECIMENOrdering Facility: [facility] Address: [address] [place] [address] Performed By: #### 2 4323-8 ####HAND LABORATORYCLIA [id number] [place] [address] [place] Sodium [Moles/Vol] 142 mmol/L Normal 136-144 [facility] Comment on above: Order Comment: Speci men Type: BLOOD SPECIMENOrdering Facility: [facility] Address: [address] [place] [address] Performed By: #### 2 4323-8 ####HAND LABORATORYCLIA [id number] [place] [address] [place] Urea nitrogen [Mass/Vol] 13 mg/dL Normal 7-21 [facility] Comment on above: Order Comment: Speci men Type: BLOOD SPECIMENOrdering Facility: [facility] Address: [address] [place] [address] Performed By: #### 2 4323-8 ####HAND LABORATORYCLIA [id number] [address] OF [facility] CONSULT PROGon 12-04-2023 CONSULT PROG Normal [facility] CBC panel Auto (Bld)on 12-02 Erythrocyte distribution width (RBC) [Ratio] 12.8 % Normal 11.5-15.0 [facility] Comment on above: Order Comment: Speci men Type: BLOOD SPECIMENOrdering Facility: [facility] Address: [address] [place] [address] Performed By: #### 5 8410-2 ####HAND LABORATORYCLIA [id number] [address] Hematocrit (Bld) [Volume fraction] 36.5 % Normal 36.0-46.0 [facility] Comment on above: Order Comment: Speci men Type: BLOOD SPECIMENOrdering Facility: [facility] Address: [address] [place] [address] Performed By: #### 5 8410-2 ####HAND LABORATORYCLIA [id number] [address] STATES OF [facility] Hemoglobin (Bld) [Mass/Vol] 11.7 g/dL Normal 11.5-15.5 [facility] Comment on above: Order Comment: Speci men Type: BLOOD SPECIMENOrdering Facility: [facility] Address: [address] [place] [address] Performed By: #### 5 8410-2 ####HAND LABORATORYCLIA [id number] [address] STATES [facility] MCH (RBC) [Entitic mass] 29.5 pg Normal 26.0-34.0 [facility] Comment on above: Order Comment: Speci men Type: BLOOD SPECIMENOrdering Facility: [facility] Address: [address] [place] [address] Performed By: #### 5 8410-2 ####HAND LABORATORYCLIA [id number] [address] MCHC (RBC) [Mass/Vol] 32.1 g/dL Normal 30.5-36.0 [facility] Comment on above: Order Comment: Speci men Type: BLOOD SPECIMENOrdering Facility: [facility] Address: [address] [place] [address] Performed By: #### 5 8410-2 ####HAND LABORATORYCLIA [id number] [address] MCV (RBC) [Entitic vol] 92.2 fL Normal 80.0-100.0 [facility] Comment on above: Order Comment: Speci men Type: BLOOD SPECIMENOrdering Facility: [facility] Address: [address] [place] [address] Performed By: #### 5 8410-2 ####HAND LABORATORYCLIA [id number] [address] Nucleated RBC (Bld) [#/Vol] 10*3/uL Normal <0.01 [facility] Comment on above: Order Comment: Speci men Type: BLOOD SPECIMENOrdering Facility: [facility] Address: [address] [place] [address] Performed By: #### 5 8410-2 ####HAND LABORATORYCLIA [id number] [address] [place] Platelet mean volume (Bld) [Entitic vol] 9.2 fL Normal 9.0-12.7 [facility] Comment on above: Order Comment: Speci men Type: BLOOD SPECIMENOrdering Facility: [facility] Address: [address] [place] [address] Performed By: #### 5 8410-2 ####HAND LABORATORYCLIA [id number] [address] [place] Platelets (Bld) [#/Vol] 190 10*3/uL Normal 150-400 [facility] Comment on above: Order Comment: Speci men Type: BLOOD SPECIMENOrdering Facility: [facility] Address: [address] [place] [id number] Performed By: #### 5 8410-2 ####HAND LABORATORYCLIA [id number] [address] OF [facility] RBC (Bld) [#/Vol] 3.96 10*6/uL Normal 3.90-5.20 [facility] Comment on above: Order Comment: Speci men Type: BLOOD SPECIMENOrdering Facility: [facility] Address: [address] [place] [address] Performed By: #### 5 8410-2 ####HAND LABORATORYCLIA [id number] [address] WBC (Bld) [#/Vol] 6.35 10*3/uL Normal 3.70-11.00 [facility] Comment on above: Order Comment: Speci men Type: BLOOD SPECIMENOrdering Facility: [facility] Address: [address] [place] [address] Performed By: #### 5 8410-2 ####HAND LABORATORYCLIA [id number] [address] CONSULT PROGon 12-03-2023 CONSULT PROG Normal [facility] Comprehensive metabolic 2000 panelon 12-03-2023 Albumin [Mass/Vol] 3.6 g/dL Low 3.9-4.9 [facility] Comment on above: Order Comment: Speci men Type: BLOOD SPECIMENOrdering Facility: [facility] Address: [address] [place] [address] Performed By: #### 2 4323-8 ####HAND LABORATORYCLIA [id number] [address] ALP [Catalytic activity/Vol] 137 U/L High 34-123 [facility] Comment on above: Order Comment: Speci men Type: BLOOD SPECIMENOrdering Facility: [facility] Address: [address] [place] [address] Performed By: #### 2 4323-8 ####HAND LABORATORYCLIA [id number] [place] [address] [place] ALT [Catalytic activity/Vol] 9 U/L Normal 7-38 [facility] Comment on above: Order Comment: Speci men Type: BLOOD SPECIMENOrdering Facility: [facility] Address: [facility] [place] [address] Performed By: #### 2 4323-8 ####HAND LABORATORYCLIA [id number] [place] [address] [place] Anion gap [Moles/Vol] 6 mmol/L Low 9-18 [facility] Comment on above: Order Comment: Speci men Type: BLOOD SPECIMENOrdering Facility: [facility] Address: [address] [place] [address] Performed By: #### 2 4323-8 ####HAND LABORATORYCLIA [id number] [address] AST [Catalytic activity/Vol] 18 U/L Normal 13-35 [facility] Comment on above: Order Comment: Speci men Type: BLOOD SPECIMENOrdering Facility: [facility] Address: [address] [place] [address] Performed By: #### 2 4323-8 ####HAND LABORATORYCLIA [id number] [place] [address] [place] Bilirubin [Mass/Vol] 0.4 mg/dL Normal 0.2-1.3 [facility] Comment on above: Order Comment: Speci men Type: BLOOD SPECIMENOrdering Facility: [facility] Address: [address] [place] [address] Performed By: #### 2 4323-8 ####HAND LABORATORYCLIA [id number] [place] [address] [place] Calcium [Mass/Vol] 9.4 mg/dL Normal 8.5-10.2 [facility] Comment on above: Order Comment: Speci men Type: BLOOD SPECIMENOrdering Facility: [facility] Address: [address] [place] [address] [place] [address] Performed By: #### 2 4323-8 ####HAND LABORATORYCLIA [id number] [place] [address] [place] Chloride [Moles/Vol] 101 mmol/L Normal 97-105 [facility] Comment on above: Order Comment: Speci men Type: BLOOD SPECIMENOrdering Facility: [facility] Address: [address] [place] [address] Performed By: #### 2 4323-8 ####HAND LABORATORYCLIA [id number] [place] [address] [place] CO2 [Moles/Vol] 33 mmol/L High 22-30 [facility] Comment on above: Order Comment: Speci men Type: BLOOD SPECIMENOrdering Facility: [facility] Address: [address] [place] [address] Performed By: #### 2 4323-8 ####HAND LABORATORYCLIA [id number] [place] [address] [place] Creatinine [Mass/Vol] 0.98 mg/dL High 0.58-0.96 [facility] Comment on above: Order Comment: Speci men Type: BLOOD SPECIMENOrdering Facility: [facility] Address: [address] [place] [address] Performed By: #### 2 4323-8 ####HAND LABORATORYCLIA [id number] [place] [address] [place] [facility] [place] Creatinine and Glomerular filtration rate.predicted panel (S/P/Bld) 63 mL/min/1.73m??? Normal >=60 [facility] Comment on above: Order Comment: Speci feliz Type: BLOOD SPECIMENOrdering Facility: [facility] Address: [address] [place] [address] Result Comment: Sweta mated Glomerular Filtration Rate (eGFR) is calculated using the 2020 CKD-EPI creatinine equation. This equation utilizes serum creatinine, sex, and age as parameters. The creatinine assay has traceable calibration to isotope dilution-mass spectrometry. Refer to KDIGO guidelines for clinical interpretation. In patients with unstable renal function, e.g. those with acute kidney injury, the eGFR may not accurately reflect actual GFR. Performed By: #### 2 4323-8 ####HAND LABORATORYCLIA [id number] [place] [address] [place] Glucose [Mass/Vol] 94 mg/dL Normal 74-99 [facility] Comment on above: Order Comment: Cesar feliz Type: BLOOD SPECIMENOrdering Facility: [facility] Address: [address] [place] [id number] Result Comment: The [place] Diabetes Association (ADA) provides guidance for cutoff values for fasting glucose and random glucose. The ADA defines fasting as no caloric intake for at least 8 hours. Fasting plasma glucose results between 100 to 125 mg/dL indicate increased risk for diabetes (prediabetes).Fasting plasma glucose results greater than or equal to 126 mg/dL meet the criteria for diagnosis of diabetes. In the absence of unequivocal hyperglycemia, results should be confirmed by repeat testing. In a patient with classic symptoms of hyperglycemia or hyperglycemic crisis, random plasma glucose results greater than or equal to 200 mg/dL meet the criteria for diagnosis of diabetes.Reference: Standards of Medical Care in Diabetes 2016, [place] Diabetes Association. Diabetes Care. 2016.39(Suppl 1). Performed By: #### 2 4323-8 ####RENTON LABORATORYCLIA [id number] [place] [address] [place] Potassium [Moles/Vol] 3.5 mmol/L Low 3.7-5.1 [facility] Comment on above: Order Comment: Cesar feliz Type: BLOOD SPECIMENOrdering Facility: [facility] Address: [address] [place] [address] Performed By: #### 2 4323-8 ####HAND LABORATORYCLIA [id number] [place] [address] [place] Protein [Mass/Vol] 5.9 g/dL Low 6.3-8.0 [facility] Comment on above: Order Comment: Holai men Type: BLOOD SPECIMENOrdering Facility: [facility] Address: [address] [place] [id number] Performed By: #### 2 4323-8 ####HAND LABORATORYCLIA [id number] [place] [address] [place] Sodium [Moles/Vol] 140 mmol/L Normal 136-144 [facility] Comment on above: Order Comment: Cesar feliz Type: BLOOD SPECIMENOrdering Facility: [facility] Address: [address] [place] [address] Performed By: #### 2 4323-8 ####HAND LABORATORYCLIA [id number] [place] [address] [place] Urea nitrogen [Mass/Vol] 10 mg/dL Normal 7-21 [facility] Comment on above: Order Comment: Speci men Type: BLOOD SPECIMENOrdering Facility: [facility] Address: [address] [place] [address] Performed By: #### 2 4323-8 ####HAND LABORATORYCLIA [id number] [address] [place] CASE MANAGEMon 12-02-2023 CASE MANAGEM Normal [facility] CBC panel Auto (Bld)on 12-01 Erythrocyte distribution width (RBC) [Ratio] 12.8 % Normal 11.5-15.0 [facility] Comment on above: Order Comment: Speci men Type: BLOOD SPECIMENOrdering Facility: [facility] Address: [address] [place] [address] Performed By: #### 5 8410-2 ####HAND LABORATORYCLIA [id number] [address] [place] Hematocrit (Bld) [Volume fraction] 37.8 % Normal 36.0-46.0 [facility] Comment on above: Order Comment: Speci men Type: BLOOD SPECIMENOrdering Facility: [facility] Address: [address] [place] [address] Performed By: #### 5 8410-2 ####HAND LABORATORYCLIA [id number] [address] [place] Hemoglobin (Bld) [Mass/Vol] 12.5 g/dL Normal 11.5-15.5 [facility] Comment on above: Order Comment: Speci men Type: BLOOD SPECIMENOrdering Facility: [facility] Address: [address] [place] [address] Performed By: #### 5 8410-2 ####HAND LABORATORYCLIA [id number] [address] [place] MCH (RBC) [Entitic mass] 30.9 pg Normal 26.0-34.0 [facility] Comment on above: Order Comment: Speci men Type: BLOOD SPECIMENOrdering Facility: [facility] Address: [address] [place] [address] Performed By: #### 5 8410-2 ####HAND LABORATORYCLIA [id number] [address] MCHC (RBC) [Mass/Vol] 33.1 g/dL Normal 30.5-36.0 [facility] Comment on above: Order Comment: Speci men Type: BLOOD SPECIMENOrdering Facility: [facility] Address: [address] [place] [address] Performed By: #### 5 8410-2 ####HAND LABORATORYCLIA [id number] [address] MCV (RBC) [Entitic vol] 93.3 fL Normal 80.0-100.0 [facility] Comment on above: Order Comment: Speci men Type: BLOOD SPECIMENOrdering Facility: [facility] Address: [address] [place] [address] Performed By: #### 5 8410-2 ####HAND LABORATORYCLIA [id number] [address] Nucleated RBC (Bld) [#/Vol] 10*3/uL Normal <0.01 [facility] Comment on above: Order Comment: Speci men Type: BLOOD SPECIMENOrdering Facility: [facility] Address: [address] [place] [address] Performed By: #### 5 8410-2 ####HAND LABORATORYCLIA [id number] [address] STATES [facility] Platelet mean volume (Bld) [Entitic vol] 8.9 fL Low 9.0-12.7 [facility] Comment on above: Order Comment: Speci men Type: BLOOD SPECIMENOrdering Facility: [facility] Address: [address] [place] [address] Performed By: #### 5 8410-2 ####HAND LABORATORYCLIA [id number] [address] [place] Platelets (Bld) [#/Vol] 177 10*3/uL Normal 150-400 [facility] Comment on above: Order Comment: Speci men Type: BLOOD SPECIMENOrdering Facility: [facility] Address: [address] [place] [address] Performed By: #### 5 8410-2 ####HAND LABORATORYCLIA [id number] [address] OF [facility] RBC (Bld) [#/Vol] 4.05 10*6/uL Normal 3.90-5.20 [facility] Comment on above: Order Comment: Speci men Type: BLOOD SPECIMENOrdering Facility: [facility] Address: [address] [place] [address] Performed By: #### 5 8410-2 ####RENTON LABORATORYCLIA [id number] [address] WBC (Bld) [#/Vol] 5.57 10*3/uL Normal 3.70-11.00 [facility] Comment on above: Order Comment: Speci men Type: BLOOD SPECIMENOrdering Facility: [facility] Address: [address] [place] [address] Performed By: #### 5 8410-2 ####RENTON LABORATORYCLIA [id number] [address] OF [facility] CONSULT PROGon 12-02-2023 CONSULT PROG Normal [facility] Comprehensive metabolic 2000 panelon 12-02-2023 Albumin [Mass/Vol] 3.6 g/dL Low 3.9-4.9 [facility] Comment on above: Order Comment: Speci men Type: BLOOD SPECIMENOrdering Facility: [facility] Address: [address] [place] [address] Performed By: #### 2 4323-8 ####RENTON LABORATORYCLIA [id number] [address] ALP [Catalytic activity/Vol] 142 U/L High 34-123 [facility] Comment on above: Order Comment: Speci men Type: BLOOD SPECIMENOrdering Facility: [facility] Address: [address] [place] [address] Performed By: #### 2 4323-8 ####HNAD LABORATORYCLIA [id number] [place], [place] [address] [place] [address] [place] ALT [Catalytic activity/Vol] 9 U/L Normal 7-38 [facility] Comment on above: Order Comment: Speci men Type: BLOOD SPECIMENOrdering Facility: [facility] Address: [address] [place] [address] Performed By: #### 2 4323-8 ####HAND LABORATORYCLIA [id number] [place] [address] [place] Anion gap [Moles/Vol] 9 mmol/L Normal 9-18 [facility] Comment on above: Order Comment: Speci men Type: BLOOD SPECIMENOrdering Facility: [facility] Address: [address] [place] [address] Performed By: #### 2 4323-8 ####HAND LABORATORYCLIA [id number] [address] [place] AST [Catalytic activity/Vol] 16 U/L Normal 13-35 [facility] Comment on above: Order Comment: Speci men Type: BLOOD SPECIMENOrdering Facility: [facility] Address: [address] [place] [address] Performed By: #### 2 4323-8 ####HAND LABORATORYCLIA [id number] [place] [address] [place] Bilirubin [Mass/Vol] 0.5 mg/dL Normal 0.2-1.3 [facility] Comment on above: Order Comment: Speci men Type: BLOOD SPECIMENOrdering Facility: [facility] Address: [address] [place] [address] Performed By: #### 2 4323-8 ####HAND LABORATORYCLIA [id number] [place] [address] [place] Calcium [Mass/Vol] 9.0 mg/dL Normal 8.5-10.2 [facility] Comment on above: Order Comment: Speci men Type: BLOOD SPECIMENOrdering Facility: [facility] Address: [address] [place] [address] Performed By: #### 2 4323-8 ####HAND LABORATORYCLIA [id number] [address] Chloride [Moles/Vol] 102 mmol/L Normal 97-105 [facility] Comment on above: Order Comment: Cesar feliz Type: BLOOD SPECIMENOrdering Facility: [facility] Address: [address] [place] [address] Performed By: #### 2 4323-8 ####HAND LABORATORYCLIA [id number] [address] CO2 [Moles/Vol] 31 mmol/L High 22-30 [facility] Comment on above: Order Comment: Cesar men Type: BLOOD SPECIMENOrdering Facility: [facility] Address: [address] [place] [address] Performed By: #### 2 4323-8 ####HAND LABORATORYCLIA [id number] [address] Creatinine [Mass/Vol] 0.85 mg/dL Normal 0.58-0.96 [facility] Comment on above: Order Comment: Holai men Type: BLOOD SPECIMENOrdering Facility: [facility] Address: [address] [place] [address] Performed By: #### 2 4323-8 ####HAND LABORATORYCLIA [id number] [address] Creatinine and Glomerular filtration rate.predicted panel (S/P/Bld) 75 mL/min/1.73m??? Normal >=60 [facility] Comment on above: Order Comment: Cesar feliz Type: BLOOD SPECIMENOrdering Facility: [facility] Address: [address] [place] [address] Result Comment: Sweta mated Glomerular Filtration Rate (eGFR) is calculated using the 2020 CKD-EPI creatinine equation. This equation utilizes serum creatinine, sex, and age as parameters. The creatinine assay has traceable calibration to isotope dilution-mass spectrometry. Refer to KDIGO guidelines for clinical interpretation. In patients with unstable renal function, e.g. those with acute kidney injury, the eGFR may not accurately reflect actual GFR. Performed By: #### 2 4323-8 ####HAND LABORATORYCLIA [id number] [place] [address] [place] Glucose [Mass/Vol] 96 mg/dL Normal 74-99 [facility] Comment on above: Order Comment: Holachristiano piper Type: BLOOD SPECIMENOrdering Facility: [facility] Address: [address] [place] [address] Result Comment: The [place] Diabetes Association (ADA) provides guidance for cutoff values for fasting glucose and random glucose. The ADA defines fasting as no caloric intake for at least 8 hours. Fasting plasma glucose results between 100 to 125 mg/dL indicate increased risk for diabetes (prediabetes).Fasting plasma glucose results greater than or equal to 126 mg/dL meet the criteria for diagnosis of diabetes. In the absence of unequivocal hyperglycemia, results should be confirmed by repeat testing. In a patient with classic symptoms of hyperglycemia or hyperglycemic crisis, random plasma glucose results greater than or equal to 200 mg/dL meet the criteria for diagnosis of diabetes.Reference: Standards of Medical Care in Diabetes 2016, [place] Diabetes Association. Diabetes Care. 2016.39(Suppl 1). Performed By: #### 2 4323-8 ####HAND LABORATORYCLIA [id number] [place] [address] [place] Potassium [Moles/Vol] 3.6 mmol/L Low 3.7-5.1 [facility] Comment on above: Order Comment: Cesar feliz Type: BLOOD SPECIMENOrdering Facility: [facility] Address: [address] [place], [place] [address] Performed By: #### 2 4323-8 ####HAND LABORATORYCLIA [id number] [place] [id number] [place] Protein [Mass/Vol] 6.3 g/dL Normal 6.3-8.0 [facility] Comment on above: Order Comment: Cesar feliz Type: BLOOD SPECIMENOrdering Facility: [facility] Address: [address] [place] [address] Performed By: #### 2 4323-8 ####HAND LABORATORYCLIA [id number] [place] [address] [place] Sodium [Moles/Vol] 142 mmol/L Normal 136-144 [facility] Comment on above: Order Comment: Holai feliz Type: BLOOD SPECIMENOrdering Facility: [facility] Address: [address] [place] [address] Performed By: #### 2 4323-8 ####HAND LABORATORYCLIA [id number] [place] [address] [place] Urea nitrogen [Mass/Vol] 10 mg/dL Normal 7-21 [facility] Comment on above: Order Comment: Speci men Type: BLOOD SPECIMENOrdering Facility: [facility] Address: [address] [place] [address] Performed By: #### 2 4323-8 ####HAND LABORATORYCLIA [id number] [place] [address] [place] ALKALINE PHOSPHATASE ISOENZY MES (P)on 12-01-2023 ALK PHOS BONE % 21.2 % Normal 10.7-68.3 [facility] Comment on above: Order Comment: Speci men Type: BLOOD SPECIMENOrdering Facility: [facility] Address: [address] [place] [address] Performed By: #### A LKISOP ####[facility] LABCLIA [id number] [place] [address] [place] ALK PHOS LIVER % 39.3 % Normal 26.0-86.2 [facility] Comment on above: Order Comment: Speci men Type: BLOOD SPECIMENOrdering Facility: [facility] Address: [address] [place] [address] Performed By: #### A LKISOP ####[facility] LABCLIA [id number] [place] [address] [place] BONE FRACTION 31.4 U/L Normal 12.9-52.6 [facility] Comment on above: Order Comment: Speci men Type: BLOOD SPECIMENOrdering Facility: [facility] Address: [address] [place] [address] Performed By: #### A LKISOP ####[facility] LABCLIA [id number] [place] [address] [place] INTESTINE FRACTION 58.3 U/L High 0.0-16.3 [facility] Comment on above: Order Comment: Speci men Type: BLOOD SPECIMENOrdering Facility: [facility] Address: [address] [place] [address] Performed By: #### A LKISOP ####[facility] LABCLIA [id number] [address] [place] LIVER FRACTION 58.2 U/L Normal 16.0-69.3 [facility] Comment on above: Order Comment: Speci men Type: BLOOD SPECIMENOrdering Facility: [facility] Address: [address] [place] [address] Performed By: #### A LKISOP ####[facility] LABIA [id number] [place] [address] [place] Neutrophils/100 WBC (Bld) 39.4 % High 0.0-24.2 [facility] Comment on above: Order Comment: Speci men Type: BLOOD SPECIMENOrdering Facility: [facility] Address: [address] [place] [address] Performed By: #### A LKISOP ####[facility] LABIA [id number] [place] [address] [place] ALLIED HEALTHon 12-01-2023 ALLIED HEALTH Normal [facility] ALLIED HEALTH [facility] ALLIED HEALTH [facility] ALP SerPl-cCncon 12-01-2023 ALP [Catalytic activity/Vol] 148 U/L High 34-123 [facility] Comment on above: Order Comment: Speci men Type: BLOOD SPECIMENOrdering Facility: [facility] Address: [address] [place] [address] Performed By: #### 6 768-6 ####[facility] LABIA [id number] [place] [address] [place] CASE MGT INIT ASSESon 2023 [facility] CBC W Auto Differential pane l (Bld)on 12-01-2023 Basophils (Bld) [#/Vol] 0.07 10*3/uL Normal <0.11 [facility] Comment on above: Order Comment: Speci men Type: BLOOD SPECIMENOrdering Facility: [facility] Address: [address] [place] [address] Performed By: #### 5 7021-8 ####HAND LABORATORYCLIA [id number] [place] [address] [place] Basophils/100 WBC (Bld) 1.0 % Normal [facility] Comment on above: Order Comment: Speci men Type: BLOOD SPECIMENOrdering Facility: [facility] Address: [address] [place] [address] Performed By: #### 5 7021-8 ####HAND LABORATORYCLIA [id number] [place] [address] [place] Differential cell count method Nom (Bld) Auto Normal [facility] Comment on above: Order Comment: Speci men Type: BLOOD SPECIMENOrdering Facility: [facility] Address: [address] [place] [address] Performed By: #### 5 7021-8 ####HAND LABORATORYCLIA [id number] [place] [address] [place] Eosinophils (Bld) [#/Vol] 1.23 10*3/uL High <0.46 [facility] Comment on above: Order Comment: Speci men Type: BLOOD SPECIMENOrdering Facility: [facility] Address: [address] [place] [address] Performed By: #### 5 7021-8 ####HAND LABORATORYCLIA [id number] [place] [address] [place] Eosinophils/100 WBC (Bld) 17.1 % Normal [facility] Comment on above: Order Comment: Speci men Type: BLOOD SPECIMENOrdering Facility: [facility] Address: [address] [place] [address] Performed By: #### 5 7021-8 ####HAND LABORATORYCLIA [id number] [place] [address] [place] Erythrocyte distribution width (RBC) [Ratio] 13.1 % Normal 11.5-15.0 [facility] Comment on above: Order Comment: Speci men Type: BLOOD SPECIMENOrdering Facility: [facility] Address: [address] [place] [address] Performed By: #### 5 7021-8 ####HAND LABORATORYCLIA [id number] [place] [address] [place] Hematocrit (Bld) [Volume fraction] 41.4 % Normal 36.0-46.0 [facility] Comment on above: Order Comment: Speci men Type: BLOOD SPECIMENOrdering Facility: [facility] Address: [address] [place] [address] Performed By: #### 5 7021-8 ####HAND LABORATORYCLIA [id number] [place] [address] [place] Hemoglobin (Bld) [Mass/Vol] 13.4 g/dL Normal 11.5-15.5 [facility] Comment on above: Order Comment: Speci men Type: BLOOD SPECIMENOrdering Facility: [facility] Address: [address] [place] [address] Performed By: #### 5 7021-8 ####HAND LABORATORYCLIA [id number] [place] [address] [place] Immature granulocytes (Bld) [#/Vol] 10*3/uL Normal <0.10 [facility] Comment on above: Order Comment: Speci men Type: BLOOD SPECIMENOrdering Facility: [facility] Address: [address] [place] [address] Performed By: #### 5 7021-8 ####HAND LABORATORYCLIA [id number] [place] [address] [place] Immature granulocytes/100 WBC (Bld) 0.3 % Normal [facility] Comment on above: Order Comment: Speci men Type: BLOOD SPECIMENOrdering Facility: [facility] Address: [address] [place] [address] Performed By: #### 5 7021-8 ####HAND LABORATORYCLIA [id number] [place] [address] [place] Lymphocytes (Bld) [#/Vol] 1.73 10*3/uL Normal 1.00-4.00 [facility] Comment on above: Order Comment: Speci men Type: BLOOD SPECIMENOrdering Facility: [facility] Address: [address] [place] [address] Performed By: #### 5 7021-8 ####HAND LABORATORYCLIA [id number] [address] Lymphocytes/100 WBC (Bld) 24.1 % Normal [facility] Comment on above: Order Comment: Speci men Type: BLOOD SPECIMENOrdering Facility: [facility] Address: [address] [place] [address] Performed By: #### 5 7021-8 ####HAND LABORATORYCLIA [id number] [address] STATES [facility] MCH (RBC) [Entitic mass] 29.9 pg Normal 26.0-34.0 [facility] Comment on above: Order Comment: Speci men Type: BLOOD SPECIMENOrdering Facility: [facility] Address: [address] [place] [address] Performed By: #### 5 7021-8 ####HAND LABORATORYCLIA [id number] [address] [place] MCHC (RBC) [Mass/Vol] 32.4 g/dL Normal 30.5-36.0 [facility] Comment on above: Order Comment: Speci men Type: BLOOD SPECIMENOrdering Facility: [facility] Address: [address] [place] [address] Performed By: #### 5 7021-8 ####HAND LABORATORYCLIA [id number] [address] [place] MCV (RBC) [Entitic vol] 92.4 fL Normal 80.0-100.0 [facility] Comment on above: Order Comment: Speci men Type: BLOOD SPECIMENOrdering Facility: [facility] Address: [address] [place] [address] Performed By: #### 5 7021-8 ####HAND LABORATORYCLIA [id number] [address] [place] Monocytes (Bld) [#/Vol] 0.55 10*3/uL Normal <0.87 [facility] Comment on above: Order Comment: Speci men Type: BLOOD SPECIMENOrdering Facility: [facility] Address: [address] [place] [address] Performed By: #### 5 7021-8 ####HAND LABORATORYCLIA [id number] [place] [address] [place] Monocytes/100 WBC (Bld) 7.7 % Normal [facility] Comment on above: Order Comment: Speci men Type: BLOOD SPECIMENOrdering Facility: [facility] Address: [address] [place] [address] Performed By: #### 5 7021-8 ####HAND LABORATORYCLIA [id number] [place] [address] [place] Neutrophils (Bld) [#/Vol] 3.58 10*3/uL Normal 1.45-7.50 [facility] Comment on above: Order Comment: Speci men Type: BLOOD SPECIMENOrdering Facility: [facility] Address: [address] [place] [address] Performed By: #### 5 7021-8 ####HAND LABORATORYCLIA [id number] [address] [place] Neutrophils/100 WBC (Bld) 49.8 % Normal [facility] Comment on above: Order Comment: Speci men Type: BLOOD SPECIMENOrdering Facility: [facility] Address: [address] [place] [address] Performed By: #### 5 7021-8 ####HAND LABORATORYCLIA [id number] [place] [address] [place] Nucleated RBC (Bld) [#/Vol] 10*3/uL Normal <0.01 [facility] Comment on above: Order Comment: Speci men Type: BLOOD SPECIMENOrdering Facility: [facility] Address: [address] [place] [address] Performed By: #### 5 7021-8 ####HAND LABORATORYCLIA [id number] [place] [address] [place] Nucleated RBC/100 WBC (Bld) [Ratio] 0.0 /100 WBC Normal [facility] Comment on above: Order Comment: Speci men Type: BLOOD SPECIMENOrdering Facility: [facility] Address: [address] [place] [address] Performed By: #### 5 7021-8 ####HAND LABORATORYCLIA [id number] [place] [address] [place] Platelet mean volume (Bld) [Entitic vol] 9.3 fL Normal 9.0-12.7 [facility] Comment on above: Order Comment: Speci men Type: BLOOD SPECIMENOrdering Facility: [facility] Address: [address] [place] [address] Performed By: #### 5 7021-8 ####HAND LABORATORYCLIA [id number] [place] [address] [place] Platelets (Bld) [#/Vol] 217 10*3/uL Normal 150-400 [facility] Comment on above: Order Comment: Speci men Type: BLOOD SPECIMENOrdering Facility: [facility] Address: [address] [place] [address] Performed By: #### 5 7021-8 ####HAND LABORATORYCLIA [id number] [place] [address] [place] RBC (Bld) [#/Vol] 4.48 10*6/uL Normal 3.90-5.20 [facility] Comment on above: Order Comment: Speci men Type: BLOOD SPECIMENOrdering Facility: [facility] Address: [address] [place] [address] Performed By: #### 5 7021-8 ####HAND LABORATORYCLIA [id number] [place] [id number] [place] WBC (Bld) [#/Vol] 7.18 10*3/uL Normal 3.70-11.00 [facility] Comment on above: Order Comment: Speci men Type: BLOOD SPECIMENOrdering Facility: [facility] Address: [address] [place] [address] Performed By: #### 5 7021-8 ####HAND LABORATORYCLIA [id number] [address] CBC panel Auto (Bld)on 11-30 Erythrocyte distribution width (RBC) [Ratio] 13.2 % Normal 11.5-15.0 [facility] Comment on above: Order Comment: Speci men Type: BLOOD SPECIMENOrdering Facility: [facility] Address: [address] [place] [address] Performed By: #### 5 8410-2 ####HAND LABORATORYCLIA [id number] [address] Hematocrit (Bld) [Volume fraction] 36.6 % Normal 36.0-46.0 [facility] Comment on above: Order Comment: Speci men Type: BLOOD SPECIMENOrdering Facility: [facility] Address: [address] [place] [address] Performed By: #### 5 8410-2 ####HAND LABORATORYCLIA [id number] [address] Hemoglobin (Bld) [Mass/Vol] 11.9 g/dL Normal 11.5-15.5 [facility] Comment on above: Order Comment: Speci men Type: BLOOD SPECIMENOrdering Facility: [facility] Address: [address] [place] [address] Performed By: #### 5 8410-2 ####HAND LABORATORYCLIA [id number] [address] MCH (RBC) [Entitic mass] 30.5 pg Normal 26.0-34.0 [facility] Comment on above: Order Comment: Speci men Type: BLOOD SPECIMENOrdering Facility: [facility] Address: [address] [place] [address] Performed By: #### 5 8410-2 ####AHND LABORATORYCLIA [id number] [address] MCHC (RBC) [Mass/Vol] 32.5 g/dL Normal 30.5-36.0 [facility] Comment on above: Order Comment: Speci men Type: BLOOD SPECIMENOrdering Facility: [facility] Address: [address] [place] [address] Performed By: #### 5 8410-2 ####HAND LABORATORYCLIA [id number] [place] [address] [place] MCV (RBC) [Entitic vol] 93.8 fL Normal 80.0-100.0 [facility] Comment on above: Order Comment: Speci men Type: BLOOD SPECIMENOrdering Facility: [facility] Address: [address] [place] [address] Performed By: #### 5 8410-2 ####HAND LABORATORYCLIA [id number] [place] [address] [place] Nucleated RBC (Bld) [#/Vol] 10*3/uL Normal <0.01 [facility] Comment on above: Order Comment: Speci men Type: BLOOD SPECIMENOrdering Facility: [facility] Address: [address] [place] [address] Performed By: #### 5 8410-2 ####HAND LABORATORYCLIA [id number] [address] [place] Platelet mean volume (Bld) [Entitic vol] 8.9 fL Low 9.0-12.7 [facility] Comment on above: Order Comment: Speci men Type: BLOOD SPECIMENOrdering Facility: [facility] Address: [address] [place] [address] Performed By: #### 5 8410-2 ####HAND LABORATORYCLIA [id number] [address] [place] Platelets (Bld) [#/Vol] 167 10*3/uL Normal 150-400 [facility] Comment on above: Order Comment: Speci men Type: BLOOD SPECIMENOrdering Facility: [facility] Address: [address] [place] [address] Performed By: #### 5 8410-2 ####HAND LABORATORYCLIA [id number] [place] [address] [place] RBC (Bld) [#/Vol] 3.90 10*6/uL Normal 3.90-5.20 [facility] Comment on above: Order Comment: Speci men Type: BLOOD SPECIMENOrdering Facility: [facility] Address: [address] [place] [address] Performed By: #### 5 8410-2 ####HAND LABORATORYCLIA [id number] [address] WBC (Bld) [#/Vol] 5.27 10*3/uL Normal 3.70-11.00 [facility] Comment on above: Order Comment: Speci men Type: BLOOD SPECIMENOrdering Facility: [facility] Address: [address] [place] [address] Performed By: #### 5 8410-2 ####HAND LABORATORYCLIA [id number] [address] [place] BLOOD TYPEon 024 ABO O Normal [facility] Comment on above: Order Comment: Speci men Type: BLOOD SPECIMENOrdering Facility: [facility] Address: [address] [place] [address] Performed By: #### C ONABO ####[facility] BANKCLIA [id number] [address] Rh Nom (Bld) Positive Normal [facility] Comment on above: Order Comment: Speci men Type: BLOOD SPECIMENOrdering Facility: [facility] Address: [address] [place] [address] Performed By: #### C ONABO ####[facility] BANKCLIA [id number] [address] [place] CONSULTon 12-01-2023 CONSULT Normal [facility] CT ABD/PEL WO IVCONon 2023 CT ABD/PEL WO IVCON Invalid Interpretation Code [facility] CT BRAIN WO IVCONon 12-01-[address] BRAIN WO IVCON Normal [facility] CT CHEST WO IVCONon 12-01-[address] CHEST WO IVCON Invalid Interpretation Code [facility] Comprehensive metabolic 2000 panelon 12-01-2023 Albumin [Mass/Vol] 3.5 g/dL Low 3.9-4.9 [facility] Comment on above: Order Comment: Speci men Type: BLOOD SPECIMENOrdering Facility: [facility] Address: [address] [place] [place] [id number] Performed By: #### 2 4323-8, 62256-7 ####HAND LABORATORYCLIA [id number] [place] [address] [place] ALP [Catalytic activity/Vol] 132 U/L High 34-123 [facility] Comment on above: Order Comment: Speci men Type: BLOOD SPECIMENOrdering Facility: [facility] Address: [address] [place] [address] [place] [address] Performed By: #### 2 4323-8, ####HAND LABORATORYCLIA [id number] [place] [address] [place] ALT [Catalytic activity/Vol] 9 U/L Normal 7-38 [facility] Comment on above: Order Comment: Speci men Type: BLOOD SPECIMENOrdering Facility: [facility] Address: [facility] [place] [address] Performed By: #### 2 432-8, ####HAND LABORATORYCLIA [id number] [place] [id number] [place] Anion gap [Moles/Vol] 6 mmol/L Low 9-18 [facility] Comment on above: Order Comment: Speci men Type: BLOOD SPECIMENOrdering Facility: [facility] Address: [facility] [address] Performed By: #### 2 4323-8, ####HAND LABORATORYCLIA [id number] [place] [id number] [place] AST [Catalytic activity/Vol] 20 U/L Normal 13-35 [facility] Comment on above: Order Comment: Speci men Type: BLOOD SPECIMENOrdering Facility: [facility] Address: [address] [place] [address] [place] [address] Performed By: #### 2 4323-8, ####HAND LABORATORYCLIA [id number] [place] [address] [place] Bilirubin [Mass/Vol] 0.4 mg/dL Normal 0.2-1.3 [facility] Comment on above: Order Comment: Speci men Type: BLOOD SPECIMENOrdering Facility: [facility] Address: [address] [place] [address] Performed By: #### 2 4328, ####HAND LABORATORYCLIA [id number] [place] [address] [place] Calcium [Mass/Vol] 8.9 mg/dL Normal 8.5-10.2 [facility] Comment on above: Order Comment: Speci men Type: BLOOD SPECIMENOrdering Facility: [facility] Address: [address] [place] [address] Performed By: #### 2 4328, ####HAND LABORATORYCLIA [id number] [place] [address] [place] Chloride [Moles/Vol] 102 mmol/L Normal 97-105 [facility] Comment on above: Order Comment: Speci men Type: BLOOD SPECIMENOrdering Facility: [facility] Address: [address] [place] [address] Performed By: #### 2 8, ####HAND LABORATORYCLIA [id number] [place] [address] [place] CO2 [Moles/Vol] 33 mmol/L High 22-30 [facility] Comment on above: Order Comment: Speci men Type: BLOOD SPECIMENOrdering Facility: [facility] Address: [address] [place] [address] Performed By: #### 2 43238, ####HAND LABORATORYCLIA [id number] [place] [address] [place] Creatinine [Mass/Vol] 1.03 mg/dL High 0.58-0.96 [facility] Comment on above: Order Comment: Speci men Type: BLOOD SPECIMENOrdering Facility: [facility] Address: [address] [place] [address] Performed By: #### 2 4323-8, ####HAND LABORATORYCLIA [id number] [place] [address] [place] Creatinine and Glomerular filtration rate.predicted panel (S/P/Bld) 60 mL/min/1.73m??? Normal >=60 [facility] Comment on above: Order Comment: Cesar piper Type: BLOOD SPECIMENOrdering Facility: [facility] Address: [address] [place], [place] [address] [address] Result Comment: Sweta mated Glomerular Filtration Rate (eGFR) is calculated using the 2020 CKD-EPI creatinine equation. This equation utilizes serum creatinine, sex, and age as parameters. The creatinine assay has traceable calibration to isotope dilution-mass spectrometry. Refer to KDIGO guidelines for clinical interpretation. In patients with unstable renal function, e.g. those with acute kidney injury, the eGFR may not accurately reflect actual GFR. Performed By: #### 2 4323-8, ####HAND LABORATORYCLIA [id number] [place] [id number] [place] Glucose [Mass/Vol] 98 mg/dL Normal 74-99 [facility] Comment on above: Order Comment: Cesar piper Type: BLOOD SPECIMENOrdering Facility: [facility] Address: [address] [place] [address] Result Comment: The [place] Diabetes Association (ADA) provides guidance for cutoff values for fasting glucose and random glucose. The ADA defines fasting as no caloric intake for at least 8 hours. Fasting plasma glucose results between 100 to 125 mg/dL indicate increased risk for diabetes (prediabetes).Fasting plasma glucose results greater than or equal to 126 mg/dL meet the criteria for diagnosis of diabetes. In the absence of unequivocal hyperglycemia, results should be confirmed by repeat testing. In a patient with classic symptoms of hyperglycemia or hyperglycemic crisis, random plasma glucose results greater than or equal to 200 mg/dL meet the criteria for diagnosis of diabetes.Reference: Standards of Medical Care in Diabetes 2016, [place] Diabetes Association. Diabetes Care. 2016.39(Suppl 1). Performed By: #### 2 4323-8, ####HAND LABORATORYCLIA [id number] [place] [address] [place] Potassium [Moles/Vol] 3.9 mmol/L Normal 3.7-5.1 [facility] Comment on above: Order Comment: Cesar piper Type: BLOOD SPECIMENOrdering Facility: [facility] Address: [address] [place] [address] Performed By: #### 2 4323-8, ####HAND LABORATORYCLIA [id number] [place] [address] [place] Protein [Mass/Vol] 6.1 g/dL Low 6.3-8.0 [facility] Comment on above: Order Comment: Speci men Type: BLOOD SPECIMENOrdering Facility: [facility] Address: [address] [place] [address] Performed By: #### 2 4323-8, ####HAND LABORATORYCLIA [id number] [place] [id number] [place] Sodium [Moles/Vol] 141 mmol/L Normal 136-144 [facility] Comment on above: Order Comment: Speci men Type: BLOOD SPECIMENOrdering Facility: [facility] Address: [address] [place] [address] Performed By: #### 2 4323-8, ####HAND LABORATORYCLIA [id number] [place] [address] [place] Urea nitrogen [Mass/Vol] 12 mg/dL Normal 7-21 [facility] Comment on above: Order Comment: Speci men Type: BLOOD SPECIMENOrdering Facility: [facility] Address: [address] [place] [address] Performed By: #### 2 4323-8, ####HAND LABORATORYCLIA [id number] [place] [address] [place] Albumin [Mass/Vol] 4.0 g/dL Normal 3.9-4.9 [facility] Comment on above: Order Comment: Speci men Type: BLOOD SPECIMENOrdering Facility: [facility] Address: [address] [place] [address] Performed By: #### 2 4323-8, [id number], ####HAND LABORATORYCLIA [id number] [place] [id number] [place] ALP [Catalytic activity/Vol] 145 U/L High 34-123 [facility] Comment on above: Order Comment: Speci men Type: BLOOD SPECIMENOrdering Facility: [facility] Address: [address] [place] [address] Performed By: #### 2 4323-8, [id number], ####HAND LABORATORYCLIA [id number] [place] [address] [place] ALT [Catalytic activity/Vol] 7 U/L Normal 7-38 [facility] Comment on above: Order Comment: Speci men Type: BLOOD SPECIMENOrdering Facility: [facility] Address: [address] [place] [address] [place] [address] Performed By: #### 2 4323-8, [id number], ####HAND LABORATORYCLIA [id number] [place] [address] [place] Anion gap [Moles/Vol] 10 mmol/L Normal 9-18 [facility] Comment on above: Order Comment: Speci men Type: BLOOD SPECIMENOrdering Facility: [facility] Address: [address] [place] [address] [place] [address] Performed By: #### 2 4323-8, [id number], ####HAND LABORATORYCLIA [id number] [place] [address] [place] AST [Catalytic activity/Vol] 16 U/L Normal 13-35 [facility] Comment on above: Order Comment: Speci men Type: BLOOD SPECIMENOrdering Facility: [facility] Address: [facility] [place] [address] Performed By: #### 2 4323-8, [id number], ####HAND LABORATORYCLIA [id number] [place] [address] [place] Bilirubin [Mass/Vol] 0.5 mg/dL Normal 0.2-1.3 [facility] Comment on above: Order Comment: Speci men Type: BLOOD SPECIMENOrdering Facility: [facility] Address: [address] [place], [place] [address] [address] Performed By: #### 2 4323-8, [id number], ####HAND LABORATORYCLIA [id number] [place] [address] [place] Calcium [Mass/Vol] 9.6 mg/dL Normal 8.5-10.2 [facility] Comment on above: Order Comment: Speci men Type: BLOOD SPECIMENOrdering Facility: [facility] Address: [address] [facility] [place] [address] Performed By: #### 2 4323-8, [id number], ####HAND LABORATORYCLIA [id number] [place] [address] [place] Chloride [Moles/Vol] 97 mmol/L Normal 97-105 [facility] Comment on above: Order Comment: Speci men Type: BLOOD SPECIMENOrdering Facility: [facility] Address: [address] [place] [address] Performed By: #### 2 4323-8, [id number], ####HAND LABORATORYCLIA [id number] [place] [address] [place] CO2 [Moles/Vol] 31 mmol/L High 22-30 [facility] Comment on above: Order Comment: Speci men Type: BLOOD SPECIMENOrdering Facility: [facility] Address: [address] [place] [address] Performed By: #### 2 4323-8, [id number], ####HAND LABORATORYCLIA [id number] [place] [address] [place] Creatinine [Mass/Vol] 0.92 mg/dL Normal 0.58-0.96 [facility] Comment on above: Order Comment: Speci men Type: BLOOD SPECIMENOrdering Facility: [facility] Address: [address] [place] [address] Performed By: #### 2 4323-8, [id number], ####HAND LABORATORYCLIA [id number] [place] [address] [place] [facility] [place] Creatinine and Glomerular filtration rate.predicted panel (S/P/Bld) 68 mL/min/1.73m??? Normal >=60 [facility] Comment on above: Order Comment: Speci men Type: BLOOD SPECIMENOrdering Facility: [facility] Address: [address] [place] [address] Result Comment: Sweta mated Glomerular Filtration Rate (eGFR) is calculated using the 2020 CKD-EPI creatinine equation. This equation utilizes serum creatinine, sex, and age as parameters. The creatinine assay has traceable calibration to isotope dilution-mass spectrometry. Refer to KDIGO guidelines for clinical interpretation. In patients with unstable renal function, e.g. those with acute kidney injury, the eGFR may not accurately reflect actual GFR. Performed By: #### 2 4323-8, [id number], ####[facility] LABORATORYCLIA [id number] [place] [address] [place] Glucose [Mass/Vol] 104 mg/dL High 74-99 [facility] Comment on above: Order Comment: Cesar piper Type: BLOOD SPECIMENOrdering Facility: [facility] Address: [address] [place] [address] Result Comment: The [place] Diabetes Association (ADA) provides guidance for cutoff values for fasting glucose and random glucose. The ADA defines fasting as no caloric intake for at least 8 hours. Fasting plasma glucose results between 100 to 125 mg/dL indicate increased risk for diabetes (prediabetes).Fasting plasma glucose results greater than or equal to 126 mg/dL meet the criteria for diagnosis of diabetes. In the absence of unequivocal hyperglycemia, results should be confirmed by repeat testing. In a patient with classic symptoms of hyperglycemia or hyperglycemic crisis, random plasma glucose results greater than or equal to 200 mg/dL meet the criteria for diagnosis of diabetes.Reference: Standards of Medical Care in Diabetes 2016, [place] Diabetes Association. Diabetes Care. 2016.39(Suppl 1). Performed By: #### 2 4323-8, [id number] ####[facility] LABORATORYCLIA [id number] [place] [address] [place] Potassium [Moles/Vol] 3.6 mmol/L Low 3.7-5.1 [facility] Comment on above: Order Comment: Cesar piper Type: BLOOD SPECIMENOrdering Facility: [facility] Address: [address] [place] [address] Performed By: #### 2 4323-8, [id number], ####[facility] LABORATORYCLIA [id number] [place] [address] [place] Protein [Mass/Vol] 7.1 g/dL Normal 6.3-8.0 [facility] Comment on above: Order Comment: Speci men Type: BLOOD SPECIMENOrdering Facility: [facility] Address: [address] [place] [address] Performed By: #### 2 4323-8, [id number], 63713-3 ####HAND LABORATORYCLIA [id number] [place] [id number] [place] Sodium [Moles/Vol] 138 mmol/L Normal 136-144 [facility] Comment on above: Order Comment: Speci men Type: BLOOD SPECIMENOrdering Facility: [facility] Address: [address] [place] [address] Performed By: #### 2 4323-8, [id number], ####HAND LABORATORYCLIA [id number] [address] [place] Urea nitrogen [Mass/Vol] 12 mg/dL Normal 7-21 [facility] Comment on above: Order Comment: Speci men Type: BLOOD SPECIMENOrdering Facility: [facility] Address: [address] [place] [address] Performed By: #### 2 4323-8, [id number], ####HAND LABORATORYCLIA [id number] [address] [place] ECG COMPLETEon 12-01-2023 ECG COMPLETE [facility] ED NOTEon 12-01-2023 ED NOTE HNO ID: [id number] Author: ORTEGA LI RN Service: ? Author Type: Registered Nurse Type: ED Notes Filed: 12/01/2023 03:43 Note Text: Dave RIBERA at bedside. [facility] ED NOTE HNO ID: [id number] Author: CALI NOLAN RN Service: Nursing Author Type: Registered Nurse Type: ED Notes Filed: 12/01/2023 01:26 Note Text: Pt report was given to Ortega NGUYEN [facility] ED NOTE HNO ID: [id number] Author: CALI NOLAN RN Service: Nursing Author Type: Registered Nurse Type: ED Notes Filed: 12/01/2023 00:27 Note Text: Pts son is bedside [facility] ED NOTE HNO ID: [id number] Author: CALI NOLAN RN Service: Nursing Author Type: Registered Nurse Type: ED Notes Filed: 11/30/2023 23:44 Note Text: Pt and her son at the bedside were updated of the plan of care [facility] ED NOTE [facility] ED NOTE HNO ID: [id number] Author: CALI NOLAN RN Service: Nursing Author Type: Registered Nurse Type: ED Notes Filed: 11/30/2023 22:30 Note Text: Pt to ct scan per the er cart [facility] FLUABV+SARS-CoV-2+RSV Pnl Re sp KAYDEN+probeon 12-01-2023 FLUABV+SARS-CoV-2+RSV Pnl Resp KAYDEN+probe [facility] Comment on above: Performed By: #### 9 5941-1 ####RENTON LABORATORYCLIA [id number] [place] [address] [place] Gas and Carbon monoxide pane l (BldV)on 12-01-2023 Base excess Calc (BldV) [Moles/Vol] 6 mmol/L High 0-2 [facility] Comment on above: Order Comment: Speci men Type: VENOUS BLOOD SPECIMENOrdering Facility: [facility] Address: [address] [place] [address] Performed By: #### 2 4344-4 ####[facility] RESPIRATORYCLIA [id number] [facility] [id number] [place] [address] Carboxyhemoglobin (BldV) [Mass fraction] 3.5 % High 0.0-2.0 [facility] Comment on above: Order Comment: Speci men Type: VENOUS BLOOD SPECIMENOrdering Facility: [facility] Address: [address] [place] [address] Result Comment: Carb oxyhemoglobin Reference Range for Smokers: 2.0-8.0% Performed By: #### 2 4344-4 ####RENT[facility] RESPIRATORYCLIA [id number] [facility] [id number] [place] [address] CO2 (BldV) [Partial pressure] 45 mm[Hg] Normal 42-55 [facility] Comment on above: Order Comment: Speci men Type: VENOUS BLOOD SPECIMENOrdering Facility: [facility] Address: [address] [place] [address] Performed By: #### 2 4344-4 ####HAND RESPIRATORYCLIA [id number] [facility] [id number] [address] [address] CO2 adjusted to patient's actual temperature (BldV) [Partial pressure] Normal [facility] Comment on above: Order Comment: Speci men Type: VENOUS BLOOD SPECIMENOrdering Facility: [facility] Address: [address] [place] [id number] Performed By: #### 2 4344-4 ####HAND RESPIRATORYCLIA [id number] [facility] [id number] [address] [address] HCO3 (Bld) [Moles/Vol] 30 mmol/L High 24-28 [facility] Comment on above: Order Comment: Speci men Type: VENOUS BLOOD SPECIMENOrdering Facility: [facility] Address: [address] [place] [address] Performed By: #### 2 4344-4 ####RENTON RESPIRATORYIA [id number] [facility] RES[facility] [id number] [address] [address] Hemoglobin (Bld) [Mass/Vol] 13.6 g/dL Normal 11.5-15.5 [facility] Comment on above: Order Comment: Speci men Type: VENOUS BLOOD SPECIMENOrdering Facility: [facility] Address: [address] [place] [address] Performed By: #### 2 4344-4 ####RENTON RESPIRATORYCLIA [id number] [facility] [id number] [address] Lactate [Moles/Vol] 0.7 mmol/L Normal 0.5-2.2 [facility] Comment on above: Order Comment: Speci men Type: VENOUS BLOOD SPECIMENOrdering Facility: [facility] Address: [address] [place] [address] Performed By: #### 2 4344-4 ####HAND RESPIRATORYCLIA [id number] [facility] [id number] [address] [address] Methemoglobin (Bld) [Mass fraction] % Normal 0.0-1.5 [facility] Comment on above: Order Comment: Speci men Type: VENOUS BLOOD SPECIMENOrdering Facility: [facility] Address: [address] [place] [address] Performed By: #### 2 4344-4 ####RENTON RESPIRATORYIA [id number] [facility] RES[facility]IR[facility] [id number] [address] [address] O2 THERAPY RA=Room Air Normal [facility] Comment on above: Order Comment: Speci men Type: VENOUS BLOOD SPECIMENOrdering Facility: [facility] Address: [address] [place] [id number] Performed By: #### 2 4344-4 ####[facility]ORY[facility] [id number] [facility] [id number] [address] Oxygen (BldV) [Partial pressure] 54 mm[Hg] High 35-45 [facility] Comment on above: Order Comment: Speci men Type: VENOUS BLOOD SPECIMENOrdering Facility: [facility] Address: [address] [place] [address] Performed By: #### 2 4344-4 ####RENTON RESPIRATORYIA [id number] [facility] RES[facility]IR[facility] [id number] [address] Oxygen adjusted to patient's actual temperature (BldV) [Partial pressure] Normal [facility] Comment on above: Order Comment: Speci men Type: VENOUS BLOOD SPECIMENOrdering Facility: [facility] Address: [address] [place] [address] Performed By: #### 2 4344-4 ####[facility]ORY[facility] [id number] [facility] RESPIRAT[facility] [id number] [address] [address] Oxyhemoglobin (BldV) [Mass fraction] 83 % Normal 60-85 [facility] Comment on above: Order Comment: Speci men Type: VENOUS BLOOD SPECIMENOrdering Facility: [facility] Address: [address] [place] [address] Performed By: #### 2 4344-4 ####HAND RESPIRATORYCLIA [id number] [facility] RES[facility]IR[facility] [id number] [address] [address] pH (BldV) 7.44 [pH] High 7.32-7.42 [facility] Comment on above: Order Comment: Speci men Type: VENOUS BLOOD SPECIMENOrdering Facility: [facility] Address: [address] [place] [address] Performed By: #### 2 4344-4 ####RENTON RESPIRATORYIA [id number] [facility] RES[facility] [id number] [address] [address] pH adjusted to patient's actual temperature (BldV) Normal [facility] Comment on above: Order Comment: Speci men Type: VENOUS BLOOD SPECIMENOrdering Facility: [facility] Address: [address] [place] [address] Performed By: #### 2 4344-4 ####RENTON RESPIRATORYIA [id number] [facility] RES[facility]IR[facility] [id number] [address] [address] Potassium [Moles/Vol] 3.4 mmol/L Low 3.5-5.0 [facility] Comment on above: Order Comment: Speci men Type: VENOUS BLOOD SPECIMENOrdering Facility: [facility] Address: [address] [place] [address] Performed By: #### 2 4344-4 ####RENTON RESPIRATORYCLIA [id number] [facility] RESPIRAT[facility] [id number] [address] HIGH SENSITIVITY TROPONIN T (INITIAL)on 12-01-2023 Troponin T.cardiac High sensitivity method [Mass/Vol] 18 ng/L High <12 [facility] Comment on above: Order Comment: Speci men Type: BLOOD SPECIMENOrdering Facility: [facility] Address: [address] [place] [address] Result Comment: When assessing risk for acute coronary syndromes: In patients undergoing blood draw greater than or equal to 2 hours from symptom onset, with history of very low to moderate risk and non-ischemic ECG, an initial hs-Troponin T less than 12 ng/L AND a 1 hour delta hs-Troponin T less than 3 ng/L should be considered very low risk for 30 day MACE. Performed By: #### 2 4323-8, [id number], 61250-5 ####HAND LABORATORYCLIA [id number] [place] [id number] [place] HIGH SENSITIVITY TROPONIN T (SECOND)on 12-01-2023 Troponin T.cardiac High sensitivity method [Mass/Vol] 18 ng/L High <12 [facility] Comment on above: Order Comment: Cesar piper Type: BLOOD SPECIMENOrdering Facility: [facility] Address: [address] [place] [address] Result Comment: When assessing risk for acute coronary syndromes: In patients undergoing blood draw greater than or equal to 2 hours from symptom onset, with history of very low to moderate risk and non-ischemic ECG, an initial hs-Troponin T less than 12 ng/L AND a 1 hour delta hs-Troponin T less than 3 ng/L should be considered very low risk for 30 day MACE. Performed By: #### L [id number] ####HAND LABORATORYCLIA [id number] [address] HIGH SENSITIVITY TROPONIN T (THIRD) 3 HRS AFTER INITIALon 12-01-2023 Troponin T.cardiac High sensitivity method [Mass/Vol] 16 ng/L High <12 [facility] Comment on above: Order Comment: Cesar piper Type: BLOOD SPECIMENOrdering Facility: [facility] Address: [address] [place] [address] Result Comment: When assessing risk for acute coronary syndromes: In patients undergoing blood draw greater than or equal to 2 hours from symptom onset, with history of very low to moderate risk and non-ischemic ECG, an initial hs-Troponin T less than 12 ng/L AND a 1 hour delta hs-Troponin T less than 3 ng/L should be considered very low risk for 30 day MACE. Performed By: #### L [id number], 3040-3 ####HAND LABORATORYCLIA [id number] [place] [id number] [place] HISTORY PHYSICALon HISTORY PHYSICAL Normal [facility] Lipase SerPl-cCncon 12-01-19 Lipase [Catalytic activity/Vol] 10 U/L Low 16-61 [facility] Comment on above: Order Comment: Speci men Type: BLOOD SPECIMENOrdering Facility: [facility] Address: [address] [place], [place] [address] Performed By: #### L [id number], 3040-3 ####RENTON LABORATORYCLIA [id number] [address] [place] MRI 3D POST PROCESSINGon MRI 3D POST PROCESSING Normal [facility] MRI PANC/WILMAN WO/W IVCONon MRI PANC/WILMAN WO/W IVCON Normal [facility] Magnesium SerPl-mCncon 11-30 Magnesium [Mass/Vol] 2.0 mg/dL Normal 1.7-2.3 [facility] Comment on above: Order Comment: Speci men Type: BLOOD SPECIMENOrdering Facility: [facility] Address: [address] [place] [address] Performed By: #### 2 4323-8, 99790-8 ####RENTON LABORATORYCLIA [id number] [address] Magnesium [Mass/Vol] 1.8 mg/dL Normal 1.7-2.3 [facility] Comment on above: Order Comment: Speci men Type: BLOOD SPECIMENOrdering Facility: [facility] Address: [address] [place] [address] Performed By: #### 2 4323-8, [id number], 82580-7 ####RENTON LABORATORYCLIA [id number] [address] [place] HEPATOBILIARY W EF AND/OR RXon 12-01-2023 NM HEPATOBILIARY W EF AND/OR RX Normal [facility] OCCULT BLD EXAM-DIAGon 11-30 OCCULT BLD EXAM-DIAG Negative Normal [facility] Comment on above: Performed By: #### O BDX ####RENTON LABORATORYCLIA [id number] [place] [address] [place] PT panel Coag (PPP)on 2023 INR Coag (PPP) [Relative time] 1.1 {INR} Normal 0.9-1.3 [facility] Comment on above: Order Comment: Cesar piper Type: BLOOD SPECIMENOrdering Facility: [facility] Address: [address] [place] [id number] Result Comment: Marce min K Antagonist (VKA) Therapeutic Range: INR 2 to 3 (Target INR of 2.5)Note: For patients treated with VKA drugs, such as warfarin, the [place] [employer] 2012 Guideline recommends a therapeutic INR range of 2 to 3 (target INR of 2.5). This recommendation includes high-risk patients with antiphospholipid syndrome with previous arterial or venous thromboembolism, current-generation mechanical or bioprosthetic aortic heart valve replacement.Note: Patients with mechanical aortic valve replacement and additional risk factors for thromboembolic events (atrial fibrillation, previous thromboembolism, LV dysfunction, hypercoagulable conditions) or an older generation mechanical AVR (i.e., ball in-Cage) or any mechanical MVR should have a INR therapeutic range of 2.5 to 3.5 (target INR of 3).Montez GH, et al. Chest 2012, 141:7S-47SNishimura RA, et al. JAC 2017, 70: 252-289 Performed By: #### 3 4528-0, 65882-6 ####RENTON LABORATORYCLIA [id number] [address] OF [facility] PT Coag (PPP) [Time] 11.3 s Normal 9.7-13.0 [facility] Comment on above: Order Comment: Cesar piper Type: BLOOD SPECIMENOrdering Facility: [facility] Address: [address] [place] [address] Performed By: #### 3 4528-0, 11570-1 ####RENTON LABORATORYCLIA [id number] [address] TYPE + SCREENon 12-01-2023 ABO O Normal [facility] Comment on above: Order Comment: Cesar piper Type: BLOOD SPECIMENOrdering Facility: [facility] Address: [address] [place] [address] Performed By: #### T SCR ####HAND BLOOD BANKCLIA [id number] [place] [address] [facility] HISTORICAL AB SCR STATUS Negative Normal [facility] Comment on above: Order Comment: Speci men Type: BLOOD SPECIMENOrdering Facility: [facility] Address: [address] [place] [address] Performed By: #### T SCR ####RENTON BLOOD BANKIA [id number] [address] Rh Nom (Bld) Positive Normal [facility] Comment on above: Order Comment: Speci men Type: BLOOD SPECIMENOrdering Facility: [facility] Address: [address] [place] [address] Performed By: #### T SCR ####[facility] BLOOD [facility]ITAL[facility] [id number] [address] TYPE AND SCREEN EXPIRATION 12/03/2023 23:59 Normal [facility] Comment on above: Order Comment: Speci men Type: BLOOD SPECIMENOrdering Facility: [facility] Address: [address] [place] [address] Performed By: #### T SCR ####RENTON BLOOD [facility] HOSPITALIA [id number] [place] [address] [place] US ABD RIGHT UPPER QUADRANTo n 12-01-2023 US ABD RIGHT UPPER QUADRANT Normal [facility] US ABD SPLEEN -NBon 12-01-19 US ABD SPLEEN -NB Normal [facility] Urinalysis complete panel (U )on 12-01-2023 Bilirubin Ql (U) Negative Normal Negative [facility] Comment on above: Order Comment: Speci men Type: URINE SPECIMENOrdering Facility: [facility] Address: [address] [place], [place] [address] Performed By: #### 2 4356-8 ####HAND LABORATORYCLIA [id number] [address] Clarity (Unsp spec) Clear Normal Clear [facility] Comment on above: Order Comment: Speci men Type: URINE SPECIMENOrdering Facility: [facility] Address: [address] [place] [address] Performed By: #### 2 4356-8 ####HAND LABORATORYCLIA [id number] [place] [address] [place] Color (U) Yellow Normal Yellow [facility] Comment on above: Order Comment: Speci men Type: URINE SPECIMENOrdering Facility: [facility] Address: [address] [place] [address] Performed By: #### 2 4356-8 ####HAND LABORATORYCLIA [id number] [place] [address] [place] Epithelial cells LM.HPF (Urine sed) [#/Area] Moderate Normal [facility] Comment on above: Order Comment: Speci men Type: URINE SPECIMENOrdering Facility: [facility] Address: [address] [place] [address] Performed By: #### 2 4356-8 ####HAND LABORATORYCLIA [id number] [place] [address] [place] Glucose Test strip (U) [Mass/Vol] Negative Normal Negative [facility] Comment on above: Order Comment: Speci men Type: URINE SPECIMENOrdering Facility: [facility] Address: [address] [place] [address] Performed By: #### 2 4356-8 ####HAND LABORATORYCLIA [id number] [address] [place] Hemoglobin Ql (U) Negative Normal Negative [facility] Comment on above: Order Comment: Speci men Type: URINE SPECIMENOrdering Facility: [facility] Address: [address] [place] [address] Performed By: #### 2 4356-8 ####HAND LABORATORYCLIA [id number] [place] [address] [place] Ketones Ql (U) Negative Normal Negative [facility] Comment on above: Order Comment: Speci men Type: URINE SPECIMENOrdering Facility: [facility] Address: [address] [place] [address] Performed By: #### 2 4356-8 ####HAND LABORATORYCLIA [id number] [address] [place] Leukocyte esterase Test strip Ql (U) Negative Normal Negative [facility] Comment on above: Order Comment: Speci men Type: URINE SPECIMENOrdering Facility: [facility] Address: [address] [place] [address] Performed By: #### 2 4356-8 ####HAND LABORATORYCLIA [id number] [place] [address] [place] Nitrite Ql (U) Negative Normal Negative [facility] Comment on above: Order Comment: Speci men Type: URINE SPECIMENOrdering Facility: [facility] Address: [address] [place] [address] Performed By: #### 2 4356-8 ####HAND LABORATORYCLIA [id number] [place] [address] [place] pH (U) 6.0 [pH] Normal 5.0-8.0 [facility] Comment on above: Order Comment: Speci men Type: URINE SPECIMENOrdering Facility: [facility] Address: [address] [place] [address] Performed By: #### 2 4356-8 ####HAND LABORATORYCLIA [id number] [place] [address] [place] Protein (U) [Mass/Vol] Negative Normal Negative [facility] Comment on above: Order Comment: Speci men Type: URINE SPECIMENOrdering Facility: [facility] Address: [address] [place] [address] Performed By: #### 2 4356-8 ####HAND LABORATORYCLIA [id number] [place] [address] [place] RBC LM.HPF (Urine sed) [#/Area] 0-3 /HPF Normal 0-3 /HPF [facility] Comment on above: Order Comment: Speci men Type: URINE SPECIMENOrdering Facility: [facility] Address: [address] [place] [address] Performed By: #### 2 4356-8 ####HAND LABORATORYCLIA [id number] [place] [address] [place] Specific gravity (U) [Rel density] 1.015 Normal 1.005-1.03 0 [facility] Comment on above: Order Comment: Speci men Type: URINE SPECIMENOrdering Facility: [facility] Address: [address] [place] [address] Performed By: #### 2 4356-8 ####HAND LABORATORYCLIA [id number] [address] Urobilinogen Ql (U) 0.2 EU/dL Normal 0.2-1.0 EU/dL [facility] Comment on above: Order Comment: Speci men Type: URINE SPECIMENOrdering Facility: [facility] Address: [address] [place] [address] Performed By: #### 2 4356-8 ####RENTON LABORATORYCLIA [id number] [place] [address] [place] WBC LM.HPF (Urine sed) [#/Area] 0-5 /HPF Normal 0-5 /HPF [facility] Comment on above: Order Comment: Speci men Type: URINE SPECIMENOrdering Facility: [facility] Address: [address] [place] [address] Performed By: #### 2 4356-8 ####RENTON LABORATORYCLIA [id number] [place] [address] [place] XR CHEST 1V FRONTAL PORTon 0 12-01-2023 XR CHEST 1V FRONTAL PORT Normal [facility] aPTT PPPon 12-01-2023 aPTT Coag (PPP) [Time] 30.8 s Normal 23.0-32.4 [facility] Comment on above: Order Comment: Speci men Type: BLOOD SPECIMENOrdering Facility: [facility] Address: [address] [place] [address] Performed By: #### 3 4528-0, 65944-3 ####RENTON LABORATORYCLIA [id number] [place] [address] [place] ALLIED HEALTHon 11-30-2023 ALLIED HEALTH Normal [facility] ED NOTEon 11-30-2023 ED NOTE Normal [facility] ED PROV NOTEon 11-30-2023 ED PROV NOTE Normal [facility] Absolute lymphocyte countOrd ered By: aWqas Hart on 01-23-2024 Lymphocytes Auto (Unsp spec) [#/Vol] 1.94 10*3/uL 0.83-4.51 [facility] Automated lymphocyte count a s percentage of total leukocytesOrdered By: Waaqs Hart on 09-29-2023 Lymphocytes/100 WBC Auto (Unsp spec) 18.9 % 19-41 [facility] Basophil percentageOrdered B y: Waqas Hart on 09-29-2023 Basophil percentage 11.6 g/dL 12.0-15.0 [facility] Basophil percentage 122 mg/dL 74-106 [facility] Basophil percentage 6.8 g/dL 6.4-8.2 [facility] Basophil percentage 0.30 mg/dL 0.20-1.00 [facility] Basophil percentage 141 mmol/L 136-145 [facility] Basophil percentage 3.9 mmol/L 3.5-5.1 [facility] Basophil percentage 109 mmol/L 98-107 [facility] Basophils (Bld) [#/Vol] 10.2 10*3/uL 4.4-11.0 [facility] Basophils (Bld) [#/Vol] 7.6 10*3/uL 2.0-7.7 [facility] Basophils/100 WBC (Bld) 74.3 % 47-70 [facility] Basophils/100 WBC (Bld) 5.8 % 0-10 [facility] Basophils/100 WBC (Bld) 0.2 % 0-1 [facility] Bilirubin [Mass/Vol] 0.30 mg/dL 0.20-1.00 [facility] Comment on above: For patients on eltr ombopag therapy, use of Dimension [place] TBIL is not recommended. Chloride [Moles/Vol] 109 mmol/L 98-107 [facility] Eosinophils/100 WBC (Bld) 0.2 % 0-5 [facility] Glucose [Mass/Vol] 122 mg/dL 74-106 [facility] Comment on above: Fasting Glucose resu lt from 100 to 125 mg/dL suggests IMPAIRED HOMEOSTASIS per A.D.A. criteria. Hemoglobin (Bld) [Mass/Vol] 11.6 g/dL 12.0-15.0 [facility] Monocytes/100 WBC (Bld) 5.8 % 0-10 [facility] Neutrophils (Bld) [#/Vol] 7.6 10*3/uL 2.0-7.7 [facility] Neutrophils/100 WBC (Bld) 74.3 % 47-70 [facility] Potassium [Moles/Vol] 3.9 mmol/L 3.5-5.1 [facility] Protein [Mass/Vol] 6.8 g/dL 6.4-8.2 [facility] Sodium [Moles/Vol] 141 mmol/L 136-145 [facility] WBC (Bld) [#/Vol] 10.2 10*3/uL 4.4-11.0 [facility] Determination of erythrocyte mean corpuscular volume (MCV)Ordered By: Waqas Hart on 09-29-2023 MCV (RBC) [Entitic vol] 93.6 fL 81-99 [facility] Erythrocyte distribution wid th ratioOrdered By: Waqas Hart on 09-29-2023 Erythrocyte distribution width (RBC) [Ratio] 12.8 % 11.6-14.6 [facility] Erythrocyte distribution wid th standard deviationOrdered By: Waqas Hart on 09-29-2023 Erythrocyte distribution width (RBC) [Entitic vol] 44.2 fL 35.1-43.9 [facility] Hematocrit Auto (Bld) [Volum e fraction]Ordered By: Waqas Hart on 09-29-2023 Hematocrit (Bld) [Volume fraction] 35.2 % 37-47 [facility] Immature granulocytes/100 WB C Auto (Bld)Ordered By: Waqas Hart on 09-29-2023 Immature granulocytes/100 WBC (Bld) 0.600 % 0.0-0.9 [facility] Comment on above: IG% - Immature Granu locytes (promyelocytes, myelocytes and metamyelocytes) > 1% indicates that a LEFT SHIFT is Present. Laboratory - Chemistry and C hemistry - challengeOrdered By: Waqas Hart on 09-29-2023 Albumin/Globulin [Mass ratio] 0.7 {ratio} 0.9-2.4 [facility] ALP [Catalytic activity/Vol] 107 U/L 45-117 [facility] ALT [Catalytic activity/Vol] 12 U/L 13-56 [facility] CO2 [Moles/Vol] 28.0 mmol/L 21.0-32.0 [facility] Globulin (S) [Mass/Vol] 3.9 g/dL 2.2-4.2 [facility] Lipase [Catalytic activity/Vol] 16 U/L 13-75 [facility] Comment on above: Please note:LIPASE r evised reference range effective 22. New Lipase methodology. Expected to produce lower values than the previous assay method. NEW Reference Range: 13 - 75 U/L Urea nitrogen/Creatinine [Mass ratio] 17.2 mg/mg - [facility] Laboratory - Hematology and Cell countsOrdered By: Waqas Hart on 09-29-2023 MCH (RBC) [Entitic mass] 30.9 pg 27.0-32.0 [facility] MCHC (RBC) [Mass/Vol] 33.0 g/dL - [facility] Nucleated RBC/100 WBC (Bld) [Ratio] 0 % 0-5 [facility] Platelets (Bld) [#/Vol] 258 10*3/uL 150-450 [facility] No Panel InformationOrdered By: Waqas Hart on 09-29-2023 Troponin I High Sensitivity 31 pg/mL 3.0-54.0 [facility] Comment on above: Please Note: New Amanda t Units and Gender Specific Reference Ranges. For more information see Policy Stat Procedure [place] High Sensitivity Troponin (TNIH) and attachments. 31 pg/mL 3.0-54.0 [facility] Estimated Creatinine Clearance Calc 70.55 ml/min [facility] Estimated GFR (MDRD) Amer 78 mL/min >60 [facility] Comment on above: GFR Calc Estimated GFR (MDRD) Non-Af Amer 64 mL/min >60 [facility] Comment on above: Non- GFR Calc 30.9 pg 27.0-32.0 [facility] 33.0 g/dL -36 [facility] 258 K/mm3 150-450 [facility] 0 % 0-5 [facility] 64 mL/min >60 [facility] 78 mL/min >60 [facility] 70.55 ml/min [facility] 17.2 RATIO 10-20 [facility] 3.9 g/dL 2.2-4.2 [facility] 0.7 RATIO 0.9-2.4 [facility] 16 U/L 13-75 [facility] 107 U/L 45-117 [facility] 12 U/L 13-56 [facility] 28.0 mmol/L 21.0-32.0 [facility] Platelet mean volume Jonny-Ec ker (Bld) [Entitic vol]Ordered By: Waqas Hart on 09-29-2023 Platelet mean volume (Bld) [Entitic vol] 9.0 fL 6.2-12.0 [facility] RBC Auto (Bld) [#/Vol]Ordere d By: Waqas Hart on 09-29-2023 RBC (Bld) [#/Vol] 3.76 10*6/uL 4.2-5.4 [facility] Serum or plasma calcium areli urement (mass/volume)Ordered By: Waqas Hart on 09-29-2023 Calcium [Mass/Vol] 9.2 mg/dL 8.5-10.1 [facility] Serum or plasma creatinine m easurement (mass/volume)Ordered By: Waqas Hart on 09-29-2023 Creatinine [Mass/Vol] 0.93 mg/dL 0.55-1.02 [facility] Comment on above: The validity of the calculated GFR & GFRAA in patients over 70 years has not been determined. Clinical correlation is essential. Serum or plasma urea nitroge n measurement (mass/volume)Ordered By: Waqas Hart on 09-29-2023 Urea nitrogen [Mass/Vol] 16 mg/dL 7-18 [facility] Thin prep Papanicolaou smear with manual screeningOrdered By: Waqas Hart on 09-29-2023 Thin prep Papanicolaou smear with manual screening 2.9 g/dL 3.2-5.0 [facility] Thin prep Papanicolaou smear with manual screening 10 U/L 15-37 [facility] Thin prep Papanicolaou smear with manual screening 4 5-15 [facility] Absolute lymphocyte countOrd ered By: Lo Chu on 09-05-2023 Lymphocytes Auto (Unsp spec) [#/Vol] 1.96 10*3/uL 0.83-4.51 [facility] Basophil percentageOrdered B y: Lo Chu on 09-05-2023 Basophil percentage 0 SEEN /hpf 0-5 [facility] Basophil percentage 112 mg/dL 74-106 [facility] Basophil percentage 6.9 g/dL 6.4-8.2 [facility] Basophil percentage 0.50 mg/dL 0.20-1.00 [facility] Basophil percentage 137 mmol/L 136-145 [facility] Basophil percentage 4.0 mmol/L 3.5-5.1 [facility] Basophil percentage 105 mmol/L 98-107 [facility] Basophils (Bld) [#/Vol] 8.8 10*3/uL 4.4-11.0 [facility] Basophils (Bld) [#/Vol] 5.8 10*3/uL 2.0-7.7 [facility] Basophils/100 WBC (Bld) 65.6 % 47-70 [facility] Basophils/100 WBC (Bld) 3.5 % 0-5 [facility] Basophils/100 WBC (Bld) 0.6 % 0-1 [facility] Bilirubin [Mass/Vol] 0.50 mg/dL 0.20-1.00 [facility] Comment on above: For patients on eltr ombopag therapy, use of Dimension [place] TBIL is not recommended. Chloride [Moles/Vol] 105 mmol/L 98-107 [facility] Eosinophils/100 WBC (Bld) 3.5 % 0-5 [facility] Glucose [Mass/Vol] 112 mg/dL 74-106 [facility] Comment on above: Fasting Glucose resu lt from 100 to 125 mg/dL suggests IMPAIRED HOMEOSTASIS per A.D.A. criteria. Neutrophils (Bld) [#/Vol] 5.8 10*3/uL 2.0-7.7 [facility] Neutrophils/100 WBC (Bld) 65.6 % 47-70 [facility] Potassium [Moles/Vol] 4.0 mmol/L 3.5-5.1 [facility] Protein [Mass/Vol] 6.9 g/dL 6.4-8.2 [facility] Sodium [Moles/Vol] 137 mmol/L 136-145 [facility] WBC (Bld) [#/Vol] 8.8 10*3/uL 4.4-11.0 [facility] Bilirubin Test strip Ql (U)O rdered By: Lo Chu on 09-05-2023 Bilirubin Ql (U) Negative Negative [facility] Blood erythrocytes count (nu mber/volume)Ordered By: Lo Chu on 09-05-2023 RBC (Bld) [#/Vol] 4.31 10*6/uL 4.2-5.4 [facility] Blood hemoglobin measurement (mass/volume)Ordered By: Lo Chu on 09-05-2023 Hemoglobin (Bld) [Mass/Vol] 13.2 g/dL 12.0-15.0 [facility] Blood lymphocytes/100 leukoc ytesOrdered By: Lo Chu on 09-05-2023 Lymphocytes/100 WBC (Bld) 22.2 % 19-41 [facility] Blood monocytes/100 leukocyt esOrdered By: Lo Chu on 09-05-2023 Monocytes/100 WBC (Bld) 7.5 % 0-10 [facility] Blood platelet mean volumeOr dered By: Lo Chu on 09-05-2023 Platelet mean volume (Bld) [Entitic vol] 8.7 fL 6.2-12.0 [facility] Determination of erythrocyte mean corpuscular volume (MCV)Ordered By: Lo Chu on 09-05-2023 MCV (RBC) [Entitic vol] 94.7 fL 81-99 [facility] Direct bilirubinOrdered By: Lo Chu on 09-05-2023 Bilirubin.direct [Mass/Vol] 0.19 mg/dL 0.00-0.30 [facility] Hematocrit Auto (Bld) [Volum e fraction]Ordered By: Lo Chu on 09-05-2023 Hematocrit (Bld) [Volume fraction] 40.8 % 37-47 [facility] Ketones Test strip Ql (U)Ord ered By: Lo Chu on 09-05-2023 Ketones Ql (U) Negative Negative [facility] Laboratory - Chemistry and C hemistry - challengeOrdered By: Lo Chu on 09-05-2023 ALP [Catalytic activity/Vol] 126 U/L 45-117 [facility] ALT [Catalytic activity/Vol] 18 U/L 13-56 [facility] CO2 [Moles/Vol] 28.0 mmol/L 21.0-32.0 [facility] Globulin (S) [Mass/Vol] 4.1 g/dL 2.2-4.2 [facility] Lipase [Catalytic activity/Vol] 12 U/L 13-75 [facility] Comment on above: Please note:LIPASE r evised reference range effective 22. New Lipase methodology. Expected to produce lower values than the previous assay method. NEW Reference Range: 13 - 75 U/L Urea nitrogen/Creatinine [Mass ratio] 15.6 mg/mg 10-20 [facility] Laboratory - Hematology and Cell countsOrdered By: Lo Chu on 09-05-2023 Erythrocyte distribution width (RBC) [Entitic vol] 44.6 fL 35.1-43.9 [facility] Erythrocyte distribution width (RBC) [Ratio] 12.9 % 11.6-14.6 [facility] Immature granulocytes/100 WBC (Bld) 0.600 % 0.0-0.9 [facility] Comment on above: IG% - Immature Granu locytes (promyelocytes, myelocytes and metamyelocytes) > 1% indicates that a LEFT SHIFT is Present. MCH (RBC) [Entitic mass] 30.6 pg 27.0-32.0 [facility] Nucleated RBC/100 WBC (Bld) [Ratio] 0 % 0-5 [facility] MCHC Auto (RBC) [Mass/Vol]Or dered By: Lo Chu on 09-05-2023 MCHC (RBC) [Mass/Vol] 32.4 g/dL 32-36 [facility] Mucus LM Ql (Urine sed)Order ed By: Lo Chu on 09-05-2023 Mucus Ql (Urine sed) 0 SEEN /hpf [facility] Nitrite Test strip Ql (U)Ord ered By: Lo Chu on 09-05-2023 Nitrite Ql (U) Negative Negative [facility] No Panel InformationOrdered By: Lo Chu on 09-05-2023 Estimated GFR (MDRD) Amer 81 mL/min >60 [facility] Comment on above: GFR Calc Estimated GFR (MDRD) Non-Af Amer 67 mL/min >60 [facility] Comment on above: Non- GFR Calc 30.6 pg 27.0-32.0 [facility] 12.9 % 11.6-14.6 [facility] 44.6 fl 35.1-43.9 [facility] 0.600 % 0.0-0.9 [facility] 0 % 0-5 [facility] 67 mL/min >60 [facility] 81 mL/min >60 [facility] 15.6 RATIO 10-20 [facility] 4.1 g/dL 2.2-4.2 [facility] 12 U/L 13-75 [facility] 126 U/L 45-117 [facility] 18 U/L 13-56 [facility] 28.0 mmol/L 21.0-32.0 [facility] Platelets bldOrdered By: Lainey Chu on 09-05-2023 Platelets (Bld) [#/Vol] 258 10*3/uL 150-450 [facility] Protein Test strip Ql (U)Ord ered By: Lo Chu on 09-05-2023 Protein Ql (U) Negative Negative [facility] Serum or plasma albumin areli urement (mass/volume)Ordered By: Lo Chu on 09-05-2023 Albumin [Mass/Vol] 2.8 g/dL 3.2-5.0 [facility] Serum or plasma calcium areli urement (mass/volume)Ordered By: Lo Chu on 09-05-2023 Calcium [Mass/Vol] 9.4 mg/dL 8.5-10.1 [facility] Serum or plasma creatinine m easurement (mass/volume)Ordered By: Lo Chu on 09-05-2023 Creatinine [Mass/Vol] 0.90 mg/dL 0.55-1.02 [facility] Comment on above: The validity of the calculated GFR & GFRAA in patients over 70 years has not been determined. Clinical correlation is essential. Serum or plasma urea nitroge n measurement (mass/volume)Ordered By: Lo Chu on 09-05-2023 Urea nitrogen [Mass/Vol] 14 mg/dL 7-18 [facility] Squamous epithelial cells de tection in urine sediment by light microscopyOrdered By: Lo Chu on 09-05-2023 Epithelial cells.squamous LM Ql (Urine sed) 0 SEEN /hpf 5-10 [facility] Thin prep Papanicolaou smear with manual screeningOrdered By: Lo Chu on 09-05-2023 Thin prep Papanicolaou smear with manual screening 14 U/L 15-37 [facility] Thin prep Papanicolaou smear with manual screening 4 5-15 [facility] Urine blood detectionOrdered By: Lo Chu on 09-05-2023 RBC Ql (U) 10 /ul Negative [facility] RBC Ql (U) 0 SEEN /hpf 0-5 [facility] Urine clarityOrdered By: Lainey Chu on 09-05-2023 Clarity (U) Clear Clear [facility] Urine color determinationOrd ered By: Lo Chu on 09-05-2023 Color (U) Yellow Yellow [facility] Urine glucose detectionOrder ed By: Lo Chu on 09-05-2023 Glucose Ql (U) Normal mg/dl Normal [facility] Urine leukocyte esterase det ection by dipstickOrdered By: Lo Chu on 09-05-2023 Leukocyte esterase Test strip Ql (U) Negative Negative [facility] Urine pHOrdered By: Lo Chu on 09-05-2023 pH (U) 7.0 [pH] 5.0 - 8.0 [facility] Urine sediment bacteria coun t by microscopy (number/high power field)Ordered By: Lo Chu on 09-05-2023 Bacteria LM.HPF (Urine sed) [#/Area] 0 /[HPF] None Seen [facility] Urine specific gravity measu rementOrdered By: Lo Chu on 09-05-2023 Specific gravity (U) [Rel density] 1.010 1.002-1.03 0 [facility] Urobilinogen Auto test strip Ql (U)Ordered By: Lo Chu on 09-05-2023 Urobilinogen Ql (U) Normal mg/dl Normal [facility] Absolute lymphocyte countOrd ered By: Keisha Williamson on 07-29-2023 Lymphocytes Auto (Unsp spec) [#/Vol] 1.46 10*3/uL 0.83-4.51 [facility] Basophil percentageOrdered B y: Keisha Williamson on 07-29-2023 Basophil percentage 0 SEEN /hpf 0-5 [facility] Basophil percentage 131 mg/dL 74-106 [facility] Basophil percentage 6.8 g/dL 6.4-8.2 [facility] Basophil percentage 0.50 mg/dL 0.20-1.00 [facility] Basophil percentage 137 mmol/L 136-145 [facility] Basophil percentage 3.8 mmol/L 3.5-5.1 [facility] Basophil percentage 106 mmol/L 98-107 [facility] Basophils (Bld) [#/Vol] 16.2 10*3/uL 4.4-11.0 [facility] Basophils (Bld) [#/Vol] 13.4 10*3/uL 2.0-7.7 [facility] Basophils/100 WBC (Bld) 0.2 % 0-1 [facility] Basophils/100 WBC (Bld) 82.5 % 47-70 [facility] Basophils/100 WBC (Bld) 0.1 % 0-5 [facility] Bilirubin [Mass/Vol] 0.50 mg/dL 0.20-1.00 [facility] Comment on above: For patients on eltr ombopag therapy, use of Dimension [place] TBIL is not recommended. Chloride [Moles/Vol] 106 mmol/L 98-107 [facility] Eosinophils/100 WBC (Bld) 0.1 % 0-5 [facility] Glucose [Mass/Vol] 131 mg/dL 74-106 [facility] Comment on above: Fasting Glucose resu lt greater than or equal to 126 mg/dL suggests DIABETES MELLITUS per A.D.A. criteria. Neutrophils (Bld) [#/Vol] 13.4 10*3/uL 2.0-7.7 [facility] Neutrophils/100 WBC (Bld) 82.5 % 47-70 [facility] Potassium [Moles/Vol] 3.8 mmol/L 3.5-5.1 [facility] Protein [Mass/Vol] 6.8 g/dL 6.4-8.2 [facility] Sodium [Moles/Vol] 137 mmol/L 136-145 [facility] WBC (Bld) [#/Vol] 16.2 10*3/uL 4.4-11.0 [facility] Bilirubin Test strip Ql (U)O rdered By: Keisha Williamson on 07-29-2023 Bilirubin Ql (U) Negative Negative [facility] Blood erythrocytes count (nu mber/volume)Ordered By: Keisha Williamson on 07-29-2023 RBC (Bld) [#/Vol] 4.17 10*6/uL 4.2-5.4 [facility] Blood hemoglobin measurement (mass/volume)Ordered By: Keisha Williamson on 07-29-2023 Hemoglobin (Bld) [Mass/Vol] 13.2 g/dL 12.0-15.0 [facility] Blood lymphocytes/100 leukoc ytesOrdered By: Keisha Williamson on 07-29-2023 Lymphocytes/100 WBC (Bld) 9.0 % 19-41 [facility] Blood monocytes/100 leukocyt esOrdered By: Keisha Williamson on 07-29-2023 Monocytes/100 WBC (Bld) 7.7 % 0-10 [facility] Blood platelet mean volumeOr dered By: Keisha Williamson on 07-29-2023 Platelet mean volume (Bld) [Entitic vol] 9.1 fL 6.2-12.0 [facility] Determination of erythrocyte mean corpuscular volume (MCV)Ordered By: Keisha Williamson on 07-29-2023 MCV (RBC) [Entitic vol] 95.9 fL 81-99 [facility] Hematocrit Auto (Bld) [Volum e fraction]Ordered By: Kesiha Williamson on 07-29-2023 Hematocrit (Bld) [Volume fraction] 40.0 % 37-47 [facility] Ketones Test strip Ql (U)Ord ered By: Keisha Williamson on 07-29-2023 Ketones Ql (U) Negative Negative [facility] Laboratory - Chemistry and C hemistry - challengeOrdered By: Keisha Williamson on 07-29-2023 ALP [Catalytic activity/Vol] 123 U/L 45-117 [facility] ALT [Catalytic activity/Vol] 21 U/L 13-56 [facility] CO2 [Moles/Vol] 28.0 mmol/L 21.0-32.0 [facility] Globulin (S) [Mass/Vol] 3.7 g/dL 2.2-4.2 [facility] Lipase [Catalytic activity/Vol] 33 U/L 13-75 [facility] Comment on above: Please note:LIPASE r evised reference range effective 22. New Lipase methodology. Expected to produce lower values than the previous assay method. NEW Reference Range: 13 - 75 U/L Urea nitrogen/Creatinine [Mass ratio] 18.6 mg/mg 10-20 [facility] Laboratory - Hematology and Cell countsOrdered By: Keisha Williamson on 07-29-2023 Erythrocyte distribution width (RBC) [Entitic vol] 44.6 fL 35.1-43.9 [facility] Erythrocyte distribution width (RBC) [Ratio] 12.8 % 11.6-14.6 [facility] Immature granulocytes/100 WBC (Bld) 0.500 % 0.0-0.9 [facility] Comment on above: IG% - Immature Granu locytes (promyelocytes, myelocytes and metamyelocytes) > 1% indicates that a LEFT SHIFT is Present. MCH (RBC) [Entitic mass] 31.7 pg 27.0-32.0 [facility] Nucleated RBC/100 WBC (Bld) [Ratio] 0 % 0-5 [facility] MCHC Auto (RBC) [Mass/Vol]Or dered By: Keisha Williamson on 07-29-2023 MCHC (RBC) [Mass/Vol] 33.0 g/dL 32-36 [facility] Mucus LM Ql (Urine sed)Order ed By: Keisha Williamson on 07-29-2023 Mucus Ql (Urine sed) 0 SEEN /hpf [facility] Nitrite Test strip Ql (U)Ord ered By: Keisha Williamson on 07-29-2023 Nitrite Ql (U) Negative Negative [facility] No Panel InformationOrdered By: Keisha Williamson on 07-29-2023 Estimated Creatinine Clearance Calc 56.93 ml/min [facility] Estimated GFR (MDRD) Amer 79 mL/min >60 [facility] Comment on above: GFR Calc Estimated GFR (MDRD) Non-Af Amer 65 mL/min >60 [facility] Comment on above: Non- GFR Calc Troponin I High Sensitivity 30 pg/mL 3.0-54.0 [facility] Comment on above: Please Note: New Amanda t Units and Gender Specific Reference Ranges. For more information see Policy Stat Procedure [place] High Sensitivity Troponin (TNIH) and attachments. 31.7 pg 27.0-32.0 [facility] 12.8 % 11.6-14.6 [facility] 44.6 fl 35.1-43.9 [facility] 0.500 % 0.0-0.9 [facility] 0 % 0-5 [facility] 65 mL/min >60 [facility] 79 mL/min >60 [facility] 56.93 ml/min [facility] 18.6 RATIO 10-20 [facility] 3.7 g/dL 2.2-4.2 [facility] 33 U/L 13-75 [facility] 30 pg/mL 3.0-54.0 [facility] 123 U/L 45-117 [facility] 21 U/L 13-56 [facility] 28.0 mmol/L 21.0-32.0 [facility] Platelets bldOrdered By: Yanelis Williamson on 07-29-2023 Platelets (Bld) [#/Vol] 242 10*3/uL 150-450 [facility] Protein Test strip Ql (U)Ord ered By: Keisha Williamson on 07-29-2023 Protein Ql (U) 15 mg/dl Negative [facility] Serum or plasma albumin areli urement (mass/volume)Ordered By: Remus Williamson on 07-29-2023 Albumin [Mass/Vol] 3.1 g/dL 3.2-5.0 [facility] Serum or plasma albumin/glob ulin mass ratioOrdered By: Remus Williamson on 07-29-2023 Albumin/Globulin [Mass ratio] 0.8 {ratio} 0.9-2.4 [facility] Serum or plasma calcium areli urement (mass/volume)Ordered By: Keisha Williamson on 07-29-2023 Calcium [Mass/Vol] 8.8 mg/dL 8.5-10.1 [facility] Serum or plasma creatinine m easurement (mass/volume)Ordered By: Keisha Williamson on 07-29-2023 Creatinine [Mass/Vol] 0.91 mg/dL 0.55-1.02 [facility] Comment on above: The validity of the calculated GFR & GFRAA in patients over 70 years has not been determined. Clinical correlation is essential. Serum or plasma urea nitroge n measurement (mass/volume)Ordered By: Keisha Williamson on 07-29-2023 Urea nitrogen [Mass/Vol] 17 mg/dL 7-18 [facility] Squamous epithelial cells de tection in urine sediment by light microscopyOrdered By: Keisha Williamson on 07-29-2023 Epithelial cells.squamous LM Ql (Urine sed) 0 SEEN /hpf 5-10 [facility] Thin prep Papanicolaou smear with manual screeningOrdered By: Keisha Williamson on 07-29-2023 Thin prep Papanicolaou smear with manual screening 16 U/L 15-37 [facility] Thin prep Papanicolaou smear with manual screening 3 5-15 [facility] Urine blood detectionOrdered By: Keisha Williamson on 07-29-2023 RBC Ql (U) 10 /ul Negative [facility] RBC Ql (U) 0 SEEN /hpf 0-5 [facility] Urine clarityOrdered By: Yanelis Williamson on 07-29-2023 Clarity (U) Clear Clear [facility] Urine color determinationOrd ered By: Keisha Williamson on 07-29-2023 Color (U) Yellow Yellow [facility] Urine glucose detectionOrder ed By: Keisha Williamson on 07-29-2023 Glucose Ql (U) Normal mg/dl Normal [facility] Urine leukocyte esterase det ection by dipstickOrdered By: Keisha Williamson on 07-29-2023 Leukocyte esterase Test strip Ql (U) Negative Negative [facility] Urine pHOrdered By: Keisha Malave gur on 07-29-2023 pH (U) 5.0 [pH] 5.0 - 8.0 [facility] Urine sediment bacteria coun t by microscopy (number/high power field)Ordered By: Keisha Dooleymelvina on 07-29-2023 Bacteria LM.HPF (Urine sed) [#/Area] RARE /hpf None Seen [facility] Urine specific gravity measu rementOrdered By: Keisha Dooleymelvina on 07-29-2023 Specific gravity (U) [Rel density] 1.025 1.002-1.03 0 [facility] Urobilinogen Auto test strip Ql (U)Ordered By: Keisha Williamson on 07-29-2023 Urobilinogen Ql (U) Normal mg/dl Normal [facility] Absolute lymphocyte countOrd ered By: Stefanie Caponemanuel on 07-19-2023 Lymphocytes Auto (Unsp spec) [#/Vol] 2.22 10*3/uL 0.83-4.51 [facility] Basophil percentageOrdered B y: Stefanie Brittany on 07-19-2023 Basophil percentage 117 mg/dL 74-106 [facility] Basophil percentage 7.9 g/dL 6.4-8.2 [facility] Basophil percentage 0.20 mg/dL 0.20-1.00 [facility] Basophil percentage 138 mmol/L 136-145 [facility] Basophil percentage 4.2 mmol/L 3.5-5.1 [facility] Basophil percentage 102 mmol/L 98-107 [facility] Basophils (Bld) [#/Vol] 8.5 10*3/uL 4.4-11.0 [facility] Basophils (Bld) [#/Vol] 5.3 10*3/uL 2.0-7.7 [facility] Basophils/100 WBC (Bld) 0.8 % 0-1 [facility] Basophils/100 WBC (Bld) 62.2 % 47-70 [facility] Basophils/100 WBC (Bld) 3.4 % 0-5 [facility] Bilirubin [Mass/Vol] 0.20 mg/dL 0.20-1.00 [facility] Comment on above: For patients on eltr ombopag therapy, use of Dimension [place] TBIL is not recommended. Chloride [Moles/Vol] 102 mmol/L 98-107 [facility] Eosinophils/100 WBC (Bld) 3.4 % 0-5 [facility] Glucose [Mass/Vol] 117 mg/dL 74-106 [facility] Comment on above: Fasting Glucose resu lt from 100 to 125 mg/dL suggests IMPAIRED HOMEOSTASIS per A.D.A. criteria. Neutrophils (Bld) [#/Vol] 5.3 10*3/uL 2.0-7.7 [facility] Neutrophils/100 WBC (Bld) 62.2 % 47-70 [facility] Potassium [Moles/Vol] 4.2 mmol/L 3.5-5.1 [facility] Protein [Mass/Vol] 7.9 g/dL 6.4-8.2 [facility] Sodium [Moles/Vol] 138 mmol/L 136-145 [facility] WBC (Bld) [#/Vol] 8.5 10*3/uL 4.4-11.0 [facility] Blood erythrocytes count (nu mber/volume)Ordered By: Stefanie Soto on 07-19-2023 RBC (Bld) [#/Vol] 4.76 10*6/uL 4.2-5.4 [facility] Blood hemoglobin measurement (mass/volume)Ordered By: Stefanie Soto on 07-19-2023 Hemoglobin (Bld) [Mass/Vol] 14.8 g/dL 12.0-15.0 [facility] Blood lymphocytes/100 leukoc ytesOrdered By: Stefanie Soto on 07-19-2023 Lymphocytes/100 WBC (Bld) 26.1 % 19-41 [facility] Blood monocytes/100 leukocyt esOrdered By: Stefanie Soto on 07-19-2023 Monocytes/100 WBC (Bld) 7.0 % 0-10 [facility] Blood platelet mean volumeOr dered By: Stefanie Soto on 07-19-2023 Platelet mean volume (Bld) [Entitic vol] 9.3 fL 6.2-12.0 [facility] Determination of erythrocyte mean corpuscular volume (MCV)Ordered By: Stefanie Soto on 07-19-2023 MCV (RBC) [Entitic vol] 97.9 fL 81-99 [facility] Hematocrit Auto (Bld) [Volum e fraction]Ordered By: Stefanie Soto on 07-19-2023 Hematocrit (Bld) [Volume fraction] 46.6 % 37-47 [facility] Laboratory - Chemistry and C hemistry - challengeOrdered By: Stefanie Soto on 07-19-2023 ALP [Catalytic activity/Vol] 152 U/L 45-117 [facility] ALT [Catalytic activity/Vol] 33 U/L 13-56 [facility] CO2 [Moles/Vol] 35.0 mmol/L 21.0-32.0 [facility] Globulin (S) [Mass/Vol] 4.2 g/dL 2.2-4.2 [facility] Lipase [Catalytic activity/Vol] 19 U/L 13-75 [facility] Comment on above: Please note:LIPASE r evised reference range effective 22. New Lipase methodology. Expected to produce lower values than the previous assay method. NEW Reference Range: 13 - 75 U/L Urea nitrogen/Creatinine [Mass ratio] 19.2 mg/mg 10-20 [facility] Laboratory - Hematology and Cell countsOrdered By: Stefanie Soto on 07-19-2023 Erythrocyte distribution width (RBC) [Entitic vol] 46.8 fL 35.1-43.9 [facility] Erythrocyte distribution width (RBC) [Ratio] 13.0 % 11.6-14.6 [facility] Immature granulocytes/100 WBC (Bld) 0.500 % 0.0-0.9 [facility] Comment on above: IG% - Immature Granu locytes (promyelocytes, myelocytes and metamyelocytes) > 1% indicates that a LEFT SHIFT is Present. MCH (RBC) [Entitic mass] 31.1 pg 27.0-32.0 [facility] Nucleated RBC/100 WBC (Bld) [Ratio] 0 % 0-5 [facility] MCHC Auto (RBC) [Mass/Vol]Or dered By: Stefanie Soto on 07-19-2023 MCHC (RBC) [Mass/Vol] 31.8 g/dL 32-36 [facility] No Panel InformationOrdered By: Stefanie Soto on 07-19-2023 Troponin I High Sensitivity 26 pg/mL 3.0-54.0 [facility] Comment on above: Please Note: New Amanda t Units and Gender Specific Reference Ranges. For more information see Policy Stat Procedure [place] High Sensitivity Troponin (TNIH) and attachments. 26 pg/mL 3.0-54.0 [facility] Estimated Creatinine Clearance Calc 43.17 ml/min [facility] Estimated GFR (MDRD) Amer 58 mL/min >60 [facility] Comment on above: GFR Calc Estimated GFR (MDRD) Non-Af Amer 48 mL/min >60 [facility] Comment on above: Non- GFR Calc 31.1 pg 27.0-32.0 [facility] 13.0 % 11.6-14.6 [facility] 46.8 fl 35.1-43.9 [facility] 0.500 % 0.0-0.9 [facility] 0 % 0-5 [facility] 48 mL/min >60 [facility] 58 mL/min >60 [facility] 43.17 ml/min [facility] 19.2 RATIO 10-20 [facility] 4.2 g/dL 2.2-4.2 [facility] 19 U/L 13-75 [facility] 152 U/L 45-117 [facility] 33 U/L 13-56 [facility] 35.0 mmol/L 21.0-32.0 [facility] Platelets bldOrdered By: Kelly Soto on 07-19-2023 Platelets (Bld) [#/Vol] 287 10*3/uL 150-450 [facility] Serum or plasma albumin areli urement (mass/volume)Ordered By: Stefanie Soto on 07-19-2023 Albumin [Mass/Vol] 3.7 g/dL 3.2-5.0 [facility] Serum or plasma albumin/glob ulin mass ratioOrdered By: Stefanie Soto on 07-19-2023 Albumin/Globulin [Mass ratio] 0.9 {ratio} 0.9-2.4 [facility] Serum or plasma calcium areli urement (mass/volume)Ordered By: Stefanie Soto on 07-19-2023 Calcium [Mass/Vol] 9.3 mg/dL 8.5-10.1 [facility] Serum or plasma creatinine m easurement (mass/volume)Ordered By: Stefanie Soto on 07-19-2023 Creatinine [Mass/Vol] 1.20 mg/dL 0.55-1.02 [facility] Comment on above: The validity of the calculated GFR & GFRAA in patients over 70 years has not been determined. Clinical correlation is essential. Serum or plasma urea nitroge n measurement (mass/volume)Ordered By: Stefanie Soto on 07-19-2023 Urea nitrogen [Mass/Vol] 23 mg/dL 7-18 [facility] Thin prep Papanicolaou smear with manual screeningOrdered By: Stefanie Soto on 07-19-2023 Thin prep Papanicolaou smear with manual screening 22 U/L 15-37 [facility] Thin prep Papanicolaou smear with manual screening 1 5-15 [facility] Absolute lymphocyte countOrd ered By: Marsha Alonso on 07-16-2023 Lymphocytes Auto (Unsp spec) [#/Vol] 2.38 10*3/uL 0.83-4.51 [facility] Basophil percentageOrdered B y: Marsha Alonso on 07-16-2023 Basophil percentage 115 mg/dL 74-106 [facility] Basophil percentage 139 mmol/L 136-145 [facility] Basophil percentage 4.5 mmol/L 3.5-5.1 [facility] Basophil percentage 106 mmol/L 98-107 [facility] Basophils (Bld) [#/Vol] 6.9 10*3/uL 4.4-11.0 [facility] Basophils (Bld) [#/Vol] 3.6 10*3/uL 2.0-7.7 [facility] Basophils/100 WBC (Bld) 0.9 % 0-1 [facility] Basophils/100 WBC (Bld) 52.0 % 47-70 [facility] Basophils/100 WBC (Bld) 4.1 % 0-5 [facility] Chloride [Moles/Vol] 106 mmol/L 98-107 [facility] Eosinophils/100 WBC (Bld) 4.1 % 0-5 [facility] Glucose [Mass/Vol] 115 mg/dL 74-106 [facility] Comment on above: Fasting Glucose resu lt from 100 to 125 mg/dL suggests IMPAIRED HOMEOSTASIS per A.D.A. criteria. Neutrophils (Bld) [#/Vol] 3.6 10*3/uL 2.0-7.7 [facility] Neutrophils/100 WBC (Bld) 52.0 % 47-70 [facility] Potassium [Moles/Vol] 4.5 mmol/L 3.5-5.1 [facility] Sodium [Moles/Vol] 139 mmol/L 136-145 [facility] WBC (Bld) [#/Vol] 6.9 10*3/uL 4.4-11.0 [facility] Blood erythrocytes count (nu mber/volume)Ordered By: Marsha Alonso on 07-16-2023 RBC (Bld) [#/Vol] 4.53 10*6/uL 4.2-5.4 [facility] Blood hemoglobin measurement (mass/volume)Ordered By: Marsha Alonso on 07-16-2023 Hemoglobin (Bld) [Mass/Vol] 14.4 g/dL 12.0-15.0 [facility] Blood lymphocytes/100 leukoc ytesOrdered By: Marsha Alonso on 07-16-2023 Lymphocytes/100 WBC (Bld) 34.4 % 19-41 [facility] Blood monocytes/100 leukocyt esOrdered By: Marsha Alonso on 07-16-2023 Monocytes/100 WBC (Bld) 8.2 % 0-10 [facility] Blood platelet mean volumeOr dered By: Marsha Alonso on 07-16-2023 Platelet mean volume (Bld) [Entitic vol] 9.1 fL 6.2-12.0 [facility] Determination of erythrocyte mean corpuscular volume (MCV)Ordered By: Marsha Alonso on 07-16-2023 MCV (RBC) [Entitic vol] 98.5 fL 81-99 [facility] Hematocrit Auto (Bld) [Volum e fraction]Ordered By: Marsha Alonso on 07-16-2023 Hematocrit (Bld) [Volume fraction] 44.6 % 37-47 [facility] Laboratory - Chemistry and C hemistry - challengeOrdered By: Marsha Alonso on 07-16-2023 CO2 [Moles/Vol] 31.0 mmol/L 21.0-32.0 [facility] Natriuretic peptide B (Bld) [Mass/Vol] 80.9 pg/mL 0-100 [facility] Urea nitrogen/Creatinine [Mass ratio] 17.7 mg/mg 10-20 [facility] Laboratory - Hematology and Cell countsOrdered By: Marsha Alonso on 07-16-2023 Erythrocyte distribution width (RBC) [Entitic vol] 47.7 fL 35.1-43.9 [facility] Erythrocyte distribution width (RBC) [Ratio] 13.2 % 11.6-14.6 [facility] Immature granulocytes/100 WBC (Bld) 0.400 % 0.0-0.9 [facility] Comment on above: IG% - Immature Granu locytes (promyelocytes, myelocytes and metamyelocytes) > 1% indicates that a LEFT SHIFT is Present. MCH (RBC) [Entitic mass] 31.8 pg 27.0-32.0 [facility] Nucleated RBC/100 WBC (Bld) [Ratio] 0 % 0-5 [facility] MCHC Auto (RBC) [Mass/Vol]Or dered By: Marsha Alonso on 07-16-2023 MCHC (RBC) [Mass/Vol] 32.3 g/dL 32-36 [facility] No Panel InformationOrdered By: Marsha Alonso on 07-16-2023 Estimated GFR (MDRD) Amer 56 mL/min >60 [facility] Comment on above: GFR Calc Estimated GFR (MDRD) Non-Af Amer 46 mL/min >60 [facility] Comment on above: Non- GFR Calc 31.8 pg 27.0-32.0 [facility] 13.2 % 11.6-14.6 [facility] 47.7 fl 35.1-43.9 [facility] 0.400 % 0.0-0.9 [facility] 0 % 0-5 [facility] 46 mL/min >60 [facility] 56 mL/min >60 [facility] 17.7 RATIO 10-20 [facility] 31.0 mmol/L 21.0-32.0 [facility] 80.9 pg/mL 0-100 [facility] Platelets bldOrdered By: Adrian Alonso on 07-16-2023 Platelets (Bld) [#/Vol] 256 10*3/uL 150-450 [facility] Serum or plasma calcium areli urement (mass/volume)Ordered By: Marsha Alonso on 07-16-2023 Calcium [Mass/Vol] 9.3 mg/dL 8.5-10.1 [facility] Serum or plasma creatinine m easurement (mass/volume)Ordered By: Marsha Alonso on 07-16-2023 Creatinine [Mass/Vol] 1.24 mg/dL 0.55-1.02 [facility] Comment on above: The validity of the calculated GFR & GFRAA in patients over 70 years has not been determined. Clinical correlation is essential. Serum or plasma urea nitroge n measurement (mass/volume)Ordered By: Marsha Alonso on 07-16-2023 Urea nitrogen [Mass/Vol] 22 mg/dL 7-18 [facility] Thin prep Papanicolaou smear with manual screeningOrdered By: Marsha Alonso on 07-16-2023 Thin prep Papanicolaou smear with manual screening 2 5-15 [facility] Laboratory - Drug toxicology Ordered By: Alok Forrest on 06-25-2023 Amphetamines Ql (U) Negative <1000 ng/mL [facility] Benzodiazepines Ql (U) Positive < 200 ng/mL [facility] Cannabinoids Screen Ql (U) Negative < 50 ng/mL [facility] Cocaine Ql (U) Negative < 300 ng/mL [facility] Opiates Ql (U) Positive < 300 ng/mL [facility] No Panel InformationOrdered By: Alok Forrest on 06-25-2023 MDMA (Ecstasy) Screen Negative < 500 ng/mL [facility] Miscellaneous Test See comment [facility] Comment on above: TEST RESULTS [id number] 6+Oxycodone-BundAmphetamines, Urine Negative ng/mL Ygnbiz=[id number] Amphetamine test includes Amphetamine and Methamphetamine.Barbiturate Negative ng/mL Ahxurc=136 Benzodiazepines Positive ng/mL Ckjuxi=005 Please Note: Confirmation performed by Mass Spectrometry Nordiazepam Negative Tvvake=392 Oxazepam Negative Otreyi=871 Flurazepam Negative Scryrs=024 Lorazepam Positive Lorazepam Conf, [place], [place] 2388 ng/mL Mimnfu=814 Alprazolam Negative Xdtumv=443 Clonazepam Negative Avekli=976 Temazepam Negative Dhpnzu=842 Triazolam Negative Ntdjjs=373 Midazolam Positive Midazolam Conf, MS, UR 900 ng/mL Napsof=889 Cannabinoids Negative ng/mL Cutoff=20 Cocaine (Metabolite) Negative ng/mL Weqmaj=797 Opiate test includes Codeine, Morphine, Hydromorphone, Hydrocodone. Please Note: Confirmation performed by Mass Spectrometry Codeine Negative Lcereb=467 Morphine Positive Morphine Conf, MS, UR 371 ng/mL Whmfqx=538 Hydromorphone Positive Hydromorphone Conf, MS, UR 404 ng/mL Dzqayf=559 Hydrocodone Positive Hydrocodone Conf, [place], [place] 1402 ng/mL Zlpgpl=136 Oxycodone/Oxymorphone, Urine Negative ng/mL Eczqpd=720 Test includes Oxycodone and Oxymorphone TESTING PERFORMED AT [facility]. ORIGINAL REPORT ON FILE IN LAB CONTAINS ADDITIONAL TEST SITE INFORMATION. Urine Barbiturates Screen Negative < 200 ng/mL [facility] Urine Drug Screen Comment [facility] Comment on above: CONFIRMATORY TESTING FOR ALL POSITIVE URINE DRUG SCREENRESULTS WILL ONLY BE SENT OUT UPON PHYSICIAN ORDER. VISTA Urine Drug Screen methods provide only preliminaryanalytical test results. A more specific alternate chemicalmethod must be used in order to obtain a confirmedanalytical result. Gas chromatography/mass spectrometery(GC/MS) is the preferred confirmatory method. Clinicalconsideration and professional judgement should be appliedto any drug of abuse test result, particularly whenpreliminary positive results are used. URINE TCA TESTING MUST BE ORDERED SEPARATELY. USE TESTMNEMONIC: [facility] Urine Methadone Screen Negative < 300 ng/mL [facility] Negative < 50 ng/mL [facility] Positive < 300 ng/mL [facility] See comment [facility] Urine phencyclidine (PCP) de tectionOrdered By: Alok Forrest on 06-25-2023 Phencyclidine Ql (U) Negative < 25 ng/mL [facility] Absolute lymphocyte countOrd ered By: Lo Chu on 06-23-2023 Lymphocytes Auto (Unsp spec) [#/Vol] 2.22 10*3/uL 0.83-4.51 [facility] Basophil percentageOrdered B y: Lo Chu on 06-23-2023 Basophil percentage 0 SEEN /hpf 0-5 [facility] Basophil percentage 7.1 g/dL 6.4-8.2 [facility] Basophil percentage 0.20 mg/dL 0.20-1.00 [facility] Bilirubin [Mass/Vol] 0.20 mg/dL 0.20-1.00 [facility] Comment on above: For patients on eltr ombopag therapy, use of Dimension [place] TBIL is not recommended. Protein [Mass/Vol] 7.1 g/dL 6.4-8.2 [facility] Basophil percentage 109 mg/dL 74-106 [facility] Basophil percentage 142 mmol/L 136-145 [facility] Basophil percentage 4.2 mmol/L 3.5-5.1 [facility] Basophil percentage 110 mmol/L 98-107 [facility] Basophils (Bld) [#/Vol] 8.3 10*3/uL 4.4-11.0 [facility] Basophils (Bld) [#/Vol] 5.0 10*3/uL 2.0-7.7 [facility] Basophils/100 WBC (Bld) 0.7 % 0-1 [facility] Basophils/100 WBC (Bld) 60.5 % 47-70 [facility] Basophils/100 WBC (Bld) 4.4 % 0-5 [facility] Chloride [Moles/Vol] 110 mmol/L 98-107 [facility] Eosinophils/100 WBC (Bld) 4.4 % 0-5 [facility] Glucose [Mass/Vol] 109 mg/dL 74-106 [facility] Comment on above: Fasting Glucose resu lt from 100 to 125 mg/dL suggests IMPAIRED HOMEOSTASIS per A.D.A. criteria. Neutrophils (Bld) [#/Vol] 5.0 10*3/uL 2.0-7.7 [facility] Neutrophils/100 WBC (Bld) 60.5 % 47-70 [facility] Potassium [Moles/Vol] 4.2 mmol/L 3.5-5.1 [facility] Sodium [Moles/Vol] 142 mmol/L 136-145 [facility] WBC (Bld) [#/Vol] 8.3 10*3/uL 4.4-11.0 [facility] Bilirubin Test strip Ql (U)O rdered By: Lo Chu on 06-23-2023 Bilirubin Ql (U) Negative Negative [facility] Blood erythrocytes count (nu mber/volume)Ordered By: Lo Chu on 06-23-2023 RBC (Bld) [#/Vol] 4.53 10*6/uL 4.2-5.4 [facility] Blood hemoglobin measurement (mass/volume)Ordered By: Lo Chu on 06-23-2023 Hemoglobin (Bld) [Mass/Vol] 14.0 g/dL 12.0-15.0 [facility] Blood lymphocytes/100 leukoc ytesOrdered By: Lo Chu on 06-23-2023 Lymphocytes/100 WBC (Bld) 26.9 % 19-41 [facility] Blood monocytes/100 leukocyt esOrdered By: Lo Chu on 06-23-2023 Monocytes/100 WBC (Bld) 6.9 % 0-10 [facility] Blood platelet mean volumeOr dered By: Lo Chu on 06-23-2023 Platelet mean volume (Bld) [Entitic vol] 9.1 fL 6.2-12.0 [facility] COVID-19 virus antigen assay Ordered By: Lo Chu on 06-23-2023 SARS-CoV-2 (COVID-19) Ag IA.rapid Ql (Resp) [facility] SARS-CoV-2 (COVID-19) Ag IA.rapid Ql (Resp) [facility] Determination of erythrocyte mean corpuscular volume (MCV)Ordered By: Lo Chu on 06-23-2023 MCV (RBC) [Entitic vol] 96.0 fL 81-99 [facility] Direct bilirubinOrdered By: Lo Chu on 06-23-2023 Bilirubin.direct [Mass/Vol] 0.09 mg/dL 0.00-0.30 [facility] Hematocrit Auto (Bld) [Volum e fraction]Ordered By: Lo Chu on 06-23-2023 Hematocrit (Bld) [Volume fraction] 43.5 % 37-47 [facility] Ketones Test strip Ql (U)Ord ered By: Lo Chu on 06-23-2023 Ketones Ql (U) Negative Negative [facility] Laboratory - Chemistry and C hemistry - challengeOrdered By: Lo Chu on 06-23-2023 ALP [Catalytic activity/Vol] 134 U/L 45-117 [facility] ALT [Catalytic activity/Vol] 27 U/L 13-56 [facility] Globulin (S) [Mass/Vol] 3.8 g/dL 2.2-4.2 [facility] Lipase [Catalytic activity/Vol] 17 U/L 13-75 [facility] Comment on above: Please note:LIPASE r evised reference range effective 22. New Lipase methodology. Expected to produce lower values than the previous assay method. NEW Reference Range: 13 - 75 U/L CO2 [Moles/Vol] 28.0 mmol/L 21.0-32.0 [facility] Urea nitrogen/Creatinine [Mass ratio] 23.8 mg/mg 10-20 [facility] Laboratory - Hematology and Cell countsOrdered By: Lo Chu on 06-23-2023 Erythrocyte distribution width (RBC) [Entitic vol] 45.9 fL 35.1-43.9 [facility] Erythrocyte distribution width (RBC) [Ratio] 13.1 % 11.6-14.6 [facility] Immature granulocytes/100 WBC (Bld) 0.600 % 0.0-0.9 [facility] Comment on above: IG% - Immature Granu locytes (promyelocytes, myelocytes and metamyelocytes) > 1% indicates that a LEFT SHIFT is Present. MCH (RBC) [Entitic mass] 30.9 pg 27.0-32.0 [facility] Nucleated RBC/100 WBC (Bld) [Ratio] 0 % 0-5 [facility] MCHC Auto (RBC) [Mass/Vol]Or dered By: Lo Chu on 06-23-2023 MCHC (RBC) [Mass/Vol] 32.2 g/dL 32-36 [facility] Mucus LM Ql (Urine sed)Order ed By: Lo Chu on 06-23-2023 Mucus Ql (Urine sed) 0 SEEN /hpf [facility] Nitrite Test strip Ql (U)Ord ered By: Lo Chu on 06-23-2023 Nitrite Ql (U) Negative Negative [facility] No Panel InformationOrdered By: Lo Chu on 06-23-2023 Troponin I High Sensitivity 28 pg/mL 3.0-54.0 [facility] Comment on above: Please Note: New Amanda t Units and Gender Specific Reference Ranges. For more information see Policy Stat Procedure [place] High Sensitivity Troponin (TNIH) and attachments. 28 pg/mL 3.0-54.0 [facility] 3.8 g/dL 2.2-4.2 [facility] 17 U/L 13-75 [facility] 134 U/L 45-117 [facility] 27 U/L 13-56 [facility] Estimated Creatinine Clearance Calc 47.42 ml/min [facility] Estimated GFR (MDRD) Amer 67 mL/min >60 [facility] Comment on above: GFR Calc Estimated GFR (MDRD) Non-Af Amer 56 mL/min >60 [facility] Comment on above: Non- GFR Calc 30.9 pg 27.0-32.0 [facility] 13.1 % 11.6-14.6 [facility] 45.9 fl 35.1-43.9 [facility] 0.600 % 0.0-0.9 [facility] 0 % 0-5 [facility] 56 mL/min >60 [facility] 67 mL/min >60 [facility] 47.42 ml/min [facility] 23.8 RATIO 10-20 [facility] 28.0 mmol/L 21.0-32.0 [facility] Platelets bldOrdered By: Lainey Chu on 06-23-2023 Platelets (Bld) [#/Vol] 222 10*3/uL 150-450 [facility] Protein Test strip Ql (U)Ord ered By: Lo Chu on 06-23-2023 Protein Ql (U) 15 mg/dl Negative [facility] Serum or plasma albumin areli urement (mass/volume)Ordered By: Lo Chu on 06-23-2023 Albumin [Mass/Vol] 3.3 g/dL 3.2-5.0 [facility] Serum or plasma calcium areli urement (mass/volume)Ordered By: Lo Chu on 06-23-2023 Calcium [Mass/Vol] 9.2 mg/dL 8.5-10.1 [facility] Serum or plasma creatinine m easurement (mass/volume)Ordered By: Lo Chu on 06-23-2023 Creatinine [Mass/Vol] 1.05 mg/dL 0.55-1.02 [facility] Comment on above: The validity of the calculated GFR & GFRAA in patients over 70 years has not been determined. Clinical correlation is essential. Serum or plasma urea nitroge n measurement (mass/volume)Ordered By: Lo Chu on 06-23-2023 Urea nitrogen [Mass/Vol] 25 mg/dL 7-18 [facility] Squamous epithelial cells de tection in urine sediment by light microscopyOrdered By: Lo Chu on 06-23-2023 Epithelial cells.squamous LM Ql (Urine sed) 0-5 SEEN /hpf 5-10 [facility] Thin prep Papanicolaou smear with manual screeningOrdered By: Lo Chu on 06-23-2023 Thin prep Papanicolaou smear with manual screening 23 U/L 15-37 [facility] Thin prep Papanicolaou smear with manual screening 4 5-15 [facility] Urine blood detectionOrdered By: Lo Chu on 06-23-2023 RBC Ql (U) 10 /ul Negative [facility] RBC Ql (U) 0 SEEN /hpf 0-5 [facility] Urine clarityOrdered By: Lainey Chu on 06-23-2023 Clarity (U) Clear Clear [facility] Urine color determinationOrd ered By: Lo Chu on 06-23-2023 Color (U) Yellow Yellow [facility] Urine glucose detectionOrder ed By: Lo Chu on 06-23-2023 Glucose Ql (U) Normal mg/dl Normal [facility] Urine leukocyte esterase det ection by dipstickOrdered By: Lo Chu on 06-23-2023 Leukocyte esterase Test strip Ql (U) 25 /ul Negative [facility] Urine pHOrdered By: Lo Chu on 06-23-2023 pH (U) 6.0 [pH] 5.0 - 8.0 [facility] Urine sediment bacteria coun t by microscopy (number/high power field)Ordered By: Lo Chu on 06-23-2023 Bacteria LM.HPF (Urine sed) [#/Area] 0 /[HPF] None Seen [facility] Urine specific gravity measu rementOrdered By: Lo Chu on 06-23-2023 Specific gravity (U) [Rel density] 1.020 1.002-1.03 0 [facility] Urobilinogen Auto test strip Ql (U)Ordered By: Lo Chu on 06-23-2023 Urobilinogen Ql (U) Normal mg/dl Normal [facility] Absolute lymphocyte countOrd ered By: Ross Lou on 06-01-2023 Lymphocytes Auto (Unsp spec) [#/Vol] 2.63 10*3/uL 0.83-4.51 [facility] Basophil percentageOrdered B y: Ross Lou on 06-01-2023 Basophil percentage 114 mg/dL 74-106 [facility] Basophil percentage 6.9 g/dL 6.4-8.2 [facility] Basophil percentage 0.40 mg/dL 0.20-1.00 [facility] Basophil percentage 140 mmol/L 136-145 [facility] Basophil percentage 4.0 mmol/L 3.5-5.1 [facility] Basophil percentage 106 mmol/L 98-107 [facility] Basophils (Bld) [#/Vol] 8.0 10*3/uL 4.4-11.0 [facility] Basophils (Bld) [#/Vol] 4.3 10*3/uL 2.0-7.7 [facility] Basophils/100 WBC (Bld) 0.7 % 0-1 [facility] Basophils/100 WBC (Bld) 53.3 % 47-70 [facility] Basophils/100 WBC (Bld) 4.5 % 0-5 [facility] Bilirubin [Mass/Vol] 0.40 mg/dL 0.20-1.00 [facility] Comment on above: For patients on eltr ombopag therapy, use of Dimension [place] TBIL is not recommended. Chloride [Moles/Vol] 106 mmol/L 98-107 [facility] Eosinophils/100 WBC (Bld) 4.5 % 0-5 [facility] Glucose [Mass/Vol] 114 mg/dL 74-106 [facility] Comment on above: Fasting Glucose resu lt from 100 to 125 mg/dL suggests IMPAIRED HOMEOSTASIS per A.D.A. criteria. Neutrophils (Bld) [#/Vol] 4.3 10*3/uL 2.0-7.7 [facility] Neutrophils/100 WBC (Bld) 53.3 % 47-70 [facility] Potassium [Moles/Vol] 4.0 mmol/L 3.5-5.1 [facility] Protein [Mass/Vol] 6.9 g/dL 6.4-8.2 [facility] Sodium [Moles/Vol] 140 mmol/L 136-145 [facility] WBC (Bld) [#/Vol] 8.0 10*3/uL 4.4-11.0 [facility] Blood erythrocytes count (nu mber/volume)Ordered By: Ross Lou on 06-01-2023 RBC (Bld) [#/Vol] 4.64 10*6/uL 4.2-5.4 [facility] Blood hemoglobin measurement (mass/volume)Ordered By: Ross Lou on 06-01-2023 Hemoglobin (Bld) [Mass/Vol] 14.5 g/dL 12.0-15.0 [facility] Blood lymphocytes/100 leukoc ytesOrdered By: Ross Lou on 06-01-2023 Lymphocytes/100 WBC (Bld) 32.8 % 19-41 [facility] Blood monocytes/100 leukocyt esOrdered By: Ross Lou on 06-01-2023 Monocytes/100 WBC (Bld) 7.7 % 0-10 [facility] Blood platelet mean volumeOr dered By: Ross Lou on 06-01-2023 Platelet mean volume (Bld) [Entitic vol] 8.9 fL 6.2-12.0 [facility] Determination of erythrocyte mean corpuscular volume (MCV)Ordered By: Ross Lou on 06-01-2023 MCV (RBC) [Entitic vol] 92.7 fL 81-99 [facility] Direct bilirubinOrdered By: Ross Lou on 06-01-2023 Bilirubin.direct [Mass/Vol] 0.10 mg/dL 0.00-0.30 [facility] Hematocrit Auto (Bld) [Volum e fraction]Ordered By: Ross Lou on 06-01-2023 Hematocrit (Bld) [Volume fraction] 43.0 % 37-47 [facility] Laboratory - Chemistry and C hemistry - challengeOrdered By: Ross Lou on 06-01-2023 ALP [Catalytic activity/Vol] 129 U/L 45-117 [facility] ALT [Catalytic activity/Vol] 17 U/L 13-56 [facility] CO2 [Moles/Vol] 30.0 mmol/L 21.0-32.0 [facility] Globulin (S) [Mass/Vol] 3.5 g/dL 2.2-4.2 [facility] Lipase [Catalytic activity/Vol] 19 U/L -75 [facility] Comment on above: Please note:LIPASE r evised reference range effective 22. New Lipase methodology. Expected to produce lower values than the previous assay method. NEW Reference Range: 13 - 75 U/L Urea nitrogen/Creatinine [Mass ratio] 16.2 mg/mg 10-20 [facility] - Hematology and Cell countsOrdered By: Ross Lou on 06-01-2023 Erythrocyte distribution width (RBC) [Entitic vol] 42.6 fL 35.1-43.9 [facility] Erythrocyte distribution width (RBC) [Ratio] 12.5 % 11.6-14.6 [facility] Immature granulocytes/100 WBC (Bld) 1.000 % 0.0-0.9 [facility] Comment on above: IG% - Immature Granu locytes (promyelocytes, myelocytes and metamyelocytes) > 1% indicates that a LEFT SHIFT is Present. MCH (RBC) [Entitic mass] 31.3 pg 27.0-32.0 [facility] Nucleated RBC/100 WBC (Bld) [Ratio] 0 % 0-5 [facility] MCHC Auto (RBC) [Mass/Vol]Or dered By: Ross Lou on 06-01-2023 MCHC (RBC) [Mass/Vol] 33.7 g/dL 32-36 [facility] No Panel InformationOrdered By: Ross Lou on 06-01-2023 Estimated Creatinine Clearance Calc 50.30 ml/min [facility] Estimated GFR (MDRD) Amer 72 mL/min >60 [facility] Comment on above: GFR Calc Estimated GFR (MDRD) Non-Af Amer 60 mL/min >60 [facility] Comment on above: Non- GFR Calc 31.3 pg 27.0-32.0 [facility] 12.5 % 11.6-14.6 [facility] 42.6 fl 35.1-43.9 [facility] 1.000 % 0.0-0.9 [facility] 0 % 0-5 [facility] 60 mL/min >60 [facility] 72 mL/min >60 [facility] 50.30 ml/min [facility] 16.2 RATIO 10-20 [facility] 3.5 g/dL 2.2-4.2 [facility] 19 U/L 13-75 [facility] 129 U/L 45-117 [facility] 17 U/L 13-56 [facility] 30.0 mmol/L 21.0-32.0 [facility] Platelets bldOrdered By: Tam Lou on 06-01-2023 Platelets (Bld) [#/Vol] 250 10*3/uL 150-450 [facility] Serum or plasma albumin areli urement (mass/volume)Ordered By: Ross Lou on 06-01-2023 Albumin [Mass/Vol] 3.4 g/dL 3.2-5.0 [facility] Serum or plasma calcium areli urement (mass/volume)Ordered By: Ross Lou on 06-01-2023 Calcium [Mass/Vol] 9.1 mg/dL 8.5-10.1 [facility] Serum or plasma creatinine m easurement (mass/volume)Ordered By: Ross Lou on 06-01-2023 Creatinine [Mass/Vol] 0.99 mg/dL 0.55-1.02 [facility] Comment on above: The validity of the calculated GFR & GFRAA in patients over 70 years has not been determined. Clinical correlation is essential. Serum or plasma urea nitroge n measurement (mass/volume)Ordered By: Ross Lou on 06-01-2023 Urea nitrogen [Mass/Vol] 16 mg/dL 7-18 [facility] Thin prep Papanicolaou smear with manual screeningOrdered By: Ross Lou on 06-01-2023 Thin prep Papanicolaou smear with manual screening 13 U/L 15-37 [facility] Thin prep Papanicolaou smear with manual screening 4 5-15 [facility] EMG(NEURO/NI)on 05-01-2023 [facility] XR Chest PA and Lateralon IMPRESSION: Stable and unremarkable exam with no acute radiographic abnormality. Service Consultant: PSCB Transcribe Date/Time: Apr 25 2023 7:22A Dictated by : BENJAMÍN VILLEGAS MD This examination was interpreted and the report reviewed and electronically signed by: BENJAMÍN VILLEGAS MD on Apr 25 2023 7:22AM [facility] DIVISION OF RADIOLOGY * * *Final Report* * * DATE OF EXAM: Apr 24 2023 3:55PM WOX [id number] - XR CHEST 2V FRONTAL/LAT / PROCEDURE REASON: Chronic bronchitis, unspecified chronic bronchitis type (HCC) * * * * Physician Interpretation * * * * EXAMINATION: CHEST RADIOGRAPH (2 VIEW FRONTAL & LATERAL) CLINICAL HISTORY: Chronic bronchitis, unspecified chronic bronchitis type (HCC) MQ: XC2_6 EXAM DATE/TIME: 04/24/2023 3:55 PM COMPARISON: 08/23/2019. RESULT: Lines, tubes, and devices: None. Lungs and pleura: No consolidation. No lung mass. No pleural effusion. No pneumothorax. Cardiomediastinal silhouette: Normal cardiomediastinal silhouette. Bones and soft tissues: Unremarkable. DIVISION OF RADIOLOGY Provider, [facility] Jolynn Martin - 04/25/2023 * * *Final Report* * * DATE OF EXAM: Apr 24 2023 3:55PM WOX [id number] - XR CHEST 2V FRONTAL/LAT / PROCEDURE REASON: Chronic bronchitis, unspecified chronic bronchitis type (HCC) * * * * Physician Interpretation * * * * EXAMINATION: CHEST RADIOGRAPH (2 VIEW FRONTAL & LATERAL) CLINICAL HISTORY: Chronic bronchitis, unspecified chronic bronchitis type (HCC) MQ: XC2_6 EXAM DATE/TIME: 04/24/2023 3:55 PM COMPARISON: 08/23/2019. RESULT: Lines, tubes, and devices: None. Lungs and pleura: No consolidation. No lung mass. No pleural effusion. No pneumothorax. Cardiomediastinal silhouette: Normal cardiomediastinal silhouette. Bones and soft tissues: Unremarkable. IMPRESSION IMPRESSION: Stable and unremarkable exam with no acute radiographic abnormality. Service Consultant: ANNE Transcribe Date/Time: Apr 25 2023 7:22A Dictated by : BENJAMÍN VILLEGAS MD This examination was interpreted and the report reviewed and electronically signed by: BENJAMÍN VILLEGAS MD on Apr 25 2023 7:22AM EST [facility] XR Chest PA and LateralOrder ed By: [facility] Provider on 04-25-2023 [facility] XR Chest PA and Lateralon Radiology Study observation (narrative) [facility] Absolute lymphocyte countOrd ered By: Dr. Byers on 01-16-2023 Lymphocytes Auto (Unsp spec) [#/Vol] 2.49 10*3/uL 0.83-4.51 [facility] Basophil percentageOrdered B y: Dr. Byers on 01-16-2023 Basophils/100 WBC (Bld) 0.7 % 0-1 [facility] Bilirubin [Mass/Vol] 0.50 mg/dL 0.20-1.00 [facility] Comment on above: For patients on eltr ombopag therapy, use of Dimension [place] TBIL is not recommended. Chloride [Moles/Vol] 107 mmol/L 98-107 [facility] Eosinophils/100 WBC (Bld) 3.3 % 0-5 [facility] Glucose [Mass/Vol] 106 mg/dL 74-106 [facility] Comment on above: Fasting Glucose resu lt from 100 to 125 mg/dL suggests IMPAIRED HOMEOSTASIS per A.D.A. criteria. Neutrophils (Bld) [#/Vol] 4.9 10*3/uL 2.0-7.7 [facility] Neutrophils/100 WBC (Bld) 57.9 % 47-70 [facility] Potassium [Moles/Vol] 3.7 mmol/L 3.5-5.1 [facility] Protein [Mass/Vol] 8.1 g/dL 6.4-8.2 [facility] Sodium [Moles/Vol] 143 mmol/L 136-145 [facility] WBC (Bld) [#/Vol] 8.5 10*3/uL 4.4-11.0 [facility] Blood erythrocytes count (nu mber/volume)Ordered By: Dr. Byers on 01-16-2023 RBC (Bld) [#/Vol] 4.70 10*6/uL 4.2-5.4 [facility] Blood hemoglobin measurement (mass/volume)Ordered By: Dr. Byers on 01-16-2023 Hemoglobin (Bld) [Mass/Vol] 15.0 g/dL 12.0-15.0 [facility] Blood lymphocytes/100 leukoc ytesOrdered By: Dr. Byers on 01-16-2023 Lymphocytes/100 WBC (Bld) 29.3 % 19-41 [facility] Blood monocytes/100 leukocyt esOrdered By: Dr. Byers on 01-16-2023 Monocytes/100 WBC (Bld) 8.2 % 0-10 [facility] Blood platelet mean volumeOr dered By: Dr. Byers on 01-16-2023 Platelet mean volume (Bld) [Entitic vol] 9.7 fL 6.2-12.0 [facility] Determination of erythrocyte mean corpuscular volume (MCV)Ordered By: Dr. Byers on 01-16-2023 MCV (RBC) [Entitic vol] 98.5 fL 81-99 [facility] Hematocrit Auto (Bld) [Volum e fraction]Ordered By: Dr. Byers on 01-16-2023 Hematocrit (Bld) [Volume fraction] 46.3 % 37-47 [facility] Laboratory - Chemistry and C hemistry - challengeOrdered By: Dr. Byers on 01-16-2023 ALP [Catalytic activity/Vol] 208 U/L 45-117 [facility] ALT [Catalytic activity/Vol] 17 U/L 13-56 [facility] CO2 [Moles/Vol] 30.0 mmol/L 21.0-32.0 [facility] Globulin (S) [Mass/Vol] 4.4 g/dL 2.2-4.2 [facility] Lipase [Catalytic activity/Vol] 40 U/L 13-75 [facility] Comment on above: Please note:LIPASE r evised reference range effective 22. New Lipase methodology. Expected to produce lower values than the previous assay method. NEW Reference Range: 13 - 75 U/L Urea nitrogen/Creatinine [Mass ratio] 21.4 mg/mg 10-20 [facility] Laboratory - Hematology and Cell countsOrdered By: Dr. Byers on 01-16-2023 Erythrocyte distribution width (RBC) [Entitic vol] 47.9 fL 35.1-43.9 [facility] Erythrocyte distribution width (RBC) [Ratio] 13.3 % 11.6-14.6 [facility] Immature granulocytes/100 WBC (Bld) 0.600 % 0.0-0.9 [facility] Comment on above: IG% - Immature Granu locytes (promyelocytes, myelocytes and metamyelocytes) > 1% indicates that a LEFT SHIFT is Present. MCH (RBC) [Entitic mass] 31.9 pg 27.0-32.0 [facility] Nucleated RBC/100 WBC (Bld) [Ratio] 0 % 0-5 [facility] MCHC Auto (RBC) [Mass/Vol]Or dered By: Dr. Byers on 01-16-2023 MCHC (RBC) [Mass/Vol] 32.4 g/dL 32-36 [facility] No Panel InformationOrdered By: Dr. Byers on 01-16-2023 Estimated Creatinine Clearance Calc 44.46 ml/min [facility] Estimated GFR (MDRD) Amer 63 mL/min >60 [facility] Comment on above: GFR Calc Estimated GFR (MDRD) Non-Af Amer 52 mL/min >60 [facility] Comment on above: Non- GFR Calc Troponin I High Sensitivity 47 pg/mL 3.0-54.0 [facility] Comment on above: Please Note: New Amanda t Units and Gender Specific Reference Ranges. For more information see Policy Stat Procedure [place] High Sensitivity Troponin (TNIH) and attachments. Platelets bldOrdered By: Dr. Byers on 01-16-2023 Platelets (Bld) [#/Vol] 380 10*3/uL 150-450 [facility] Serum or plasma albumin areli urement (mass/volume)Ordered By: Dr. Byers on 01-16-2023 Albumin [Mass/Vol] 3.7 g/dL 3.2-5.0 [facility] Serum or plasma albumin/glob ulin mass ratioOrdered By: Dr. Byers on 01-16-2023 Albumin/Globulin [Mass ratio] 0.8 {ratio} 0.9-2.4 [facility] Serum or plasma calcium areli urement (mass/volume)Ordered By: Dr. Byers on 01-16-2023 Calcium [Mass/Vol] 10.0 mg/dL 8.5-10.1 [facility] Serum or plasma creatinine m easurement (mass/volume)Ordered By: Dr. Byers on 01-16-2023 Creatinine [Mass/Vol] 1.12 mg/dL 0.55-1.02 [facility] Comment on above: The validity of the calculated GFR & GFRAA in patients over 70 years has not been determined. Clinical correlation is essential. Serum or plasma urea nitroge n measurement (mass/volume)Ordered By: Dr. Byers on 01-16-2023 Urea nitrogen [Mass/Vol] 24 mg/dL 7-18 [facility] Thin prep Papanicolaou smear with manual screeningOrdered By: Dr. Byers on 01-16-2023 Thin prep Papanicolaou smear with manual screening 14 U/L 15-37 [facility] Thin prep Papanicolaou smear with manual screening 6 5-15 [facility] Absolute lymphocyte countOrd ered By: Dr. Chambers on 01-14-2023 Lymphocytes Auto (Unsp spec) [#/Vol] 2.57 10*3/uL 0.83-4.51 [facility] Basophil percentageOrdered B y: Dr. Chambers on 01-14-2023 Basophil percentage 0 SEEN /hpf 0-5 [facility] Basophils/100 WBC (Bld) 0.6 % 0-1 [facility] Bilirubin [Mass/Vol] 0.50 mg/dL 0.20-1.00 [facility] Comment on above: For patients on eltr ombopag therapy, use of Dimension [place] TBIL is not recommended. Chloride [Moles/Vol] 105 mmol/L 98-107 [facility] Eosinophils/100 WBC (Bld) 3.0 % 0-5 [facility] Glucose [Mass/Vol] 92 mg/dL 74-106 [facility] Neutrophils (Bld) [#/Vol] 5.1 10*3/uL 2.0-7.7 [facility] Neutrophils/100 WBC (Bld) 58.8 % 47-70 [facility] Potassium [Moles/Vol] 4.1 mmol/L 3.5-5.1 [facility] Protein [Mass/Vol] 7.5 g/dL 6.4-8.2 [facility] Sodium [Moles/Vol] 141 mmol/L 136-145 [facility] WBC (Bld) [#/Vol] 8.6 10*3/uL 4.4-11.0 [facility] Bilirubin Test strip Ql (U)O rdered By: Dr. Chambers on 01-14-2023 Bilirubin Ql (U) Negative Negative [facility] Blood erythrocytes count (nu mber/volume)Ordered By: Dr. Chambers on 01-14-2023 RBC (Bld) [#/Vol] 4.65 10*6/uL 4.2-5.4 [facility] Blood hemoglobin measurement (mass/volume)Ordered By: Dr. Chambers on 01-14-2023 Hemoglobin (Bld) [Mass/Vol] 14.7 g/dL 12.0-15.0 [facility] Blood lymphocytes/100 leukoc ytesOrdered By: Dr. Chambers on 01-14-2023 Lymphocytes/100 WBC (Bld) 29.9 % 19-41 [facility] Blood monocytes/100 leukocyt esOrdered By: Dr. Chambers on 01-14-2023 Monocytes/100 WBC (Bld) 7.4 % 0-10 [facility] Blood platelet mean volumeOr dered By: Dr. Chambers on 01-14-2023 Platelet mean volume (Bld) [Entitic vol] 8.8 fL 6.2-12.0 [facility] Determination of erythrocyte mean corpuscular volume (MCV)Ordered By: Dr. Chambers on 01-14-2023 MCV (RBC) [Entitic vol] 96.3 fL 81-99 [facility] Hematocrit Auto (Bld) [Volum e fraction]Ordered By: Dr. Chambers on 01-14-2023 Hematocrit (Bld) [Volume fraction] 44.8 % 37-47 [facility] Ketones Test strip Ql (U)Ord ered By: Dr. Chambers on 01-14-2023 Ketones Ql (U) 15 mg/dl Negative [facility] Laboratory - Chemistry and C hemistry - challengeOrdered By: Dr. Chambers on 01-14-2023 ALP [Catalytic activity/Vol] 196 U/L 45-117 [facility] ALT [Catalytic activity/Vol] 15 U/L 13-56 [facility] CO2 [Moles/Vol] 29.0 mmol/L 21.0-32.0 [facility] Globulin (S) [Mass/Vol] 4.2 g/dL 2.2-4.2 [facility] Lipase [Catalytic activity/Vol] 27 U/L - [facility] Comment on above: Please note:LIPASE r evised reference range effective 22. New Lipase methodology. Expected to produce lower values than the previous assay method. NEW Reference Range: 13 - 75 U/L Urea nitrogen/Creatinine [Mass ratio] 16.9 mg/mg 10-20 [facility] - Hematology and Cell countsOrdered By: Dr. Chambers on 01-14-2023 Erythrocyte distribution width (RBC) [Entitic vol] 46.0 fL 35.1-43.9 [facility] Erythrocyte distribution width (RBC) [Ratio] 13.1 % 11.6-14.6 [facility] Immature granulocytes/100 WBC (Bld) 0.300 % 0.0-0.9 [facility] Comment on above: IG% - Immature Granu locytes (promyelocytes, myelocytes and metamyelocytes) > 1% indicates that a LEFT SHIFT is Present. MCH (RBC) [Entitic mass] 31.6 pg 27.0-32.0 [facility] Nucleated RBC/100 WBC (Bld) [Ratio] 0 % 0-5 [facility] MCHC Auto (RBC) [Mass/Vol]Or dered By: Dr. Chambers on 01-14-2023 MCHC (RBC) [Mass/Vol] 32.8 g/dL 32-36 [facility] Mucus LM Ql (Urine sed)Order ed By: Dr. Chambers on 01-14-2023 Mucus Ql (Urine sed) 0 SEEN /hpf [facility] Nitrite Test strip Ql (U)Ord ered By: Dr. Chambers on 01-14-2023 Nitrite Ql (U) Negative Negative [facility] No Panel InformationOrdered By: Dr. Chambers on 01-14-2023 Estimated Creatinine Clearance Calc 52.97 ml/min [facility] Estimated GFR (MDRD) Amer 76 mL/min >60 [facility] Comment on above: GFR Calc Estimated GFR (MDRD) Non-Af Amer 63 mL/min >60 [facility] Comment on above: Non- GFR Calc Platelets bldOrdered By: Dr. Chambers on 01-14-2023 Platelets (Bld) [#/Vol] 310 10*3/uL 150-450 [facility] Protein Test strip Ql (U)Ord ered By: Dr. Chambers on 01-14-2023 Protein Ql (U) 15 mg/dl Negative [facility] Serum or plasma albumin areli urement (mass/volume)Ordered By: Dr. Chambers on 01-14-2023 Albumin [Mass/Vol] 3.3 g/dL 3.2-5.0 [facility] Serum or plasma albumin/glob ulin mass ratioOrdered By: Dr. Chambers on 01-14-2023 Albumin/Globulin [Mass ratio] 0.8 {ratio} 0.9-2.4 [facility] Serum or plasma calcium areli urement (mass/volume)Ordered By: Dr. Chambers on 01-14-2023 Calcium [Mass/Vol] 9.6 mg/dL 8.5-10.1 [facility] Serum or plasma creatinine m easurement (mass/volume)Ordered By: Dr. Chambers on 01-14-2023 Creatinine [Mass/Vol] 0.94 mg/dL 0.55-1.02 [facility] Comment on above: The validity of the calculated GFR & GFRAA in patients over 70 years has not been determined. Clinical correlation is essential. Serum or plasma urea nitroge n measurement (mass/volume)Ordered By: Dr. Chambers on 01-14-2023 Urea nitrogen [Mass/Vol] 16 mg/dL 7-18 [facility] Squamous epithelial cells de tection in urine sediment by light microscopyOrdered By: Dr. Chambers on 01-14-2023 Epithelial cells.squamous LM Ql (Urine sed) 0 SEEN /hpf 5-10 [facility] Thin prep Papanicolaou smear with manual screeningOrdered By: Dr. Chambers on 01-14-2023 Thin prep Papanicolaou smear with manual screening 12 U/L 15-37 [facility] Thin prep Papanicolaou smear with manual screening 7 5-15 [facility] Urine blood detectionOrdered By: Dr. Chambers on 01-14-2023 RBC Ql (U) 25 /ul Negative [facility] RBC Ql (U) 0-5 SEEN /hpf 0-5 [facility] Urine clarityOrdered By: Dr. Chambers on 01-14-2023 Clarity (U) Clear Clear [facility] Urine color determinationOrd ered By: Dr. Chambers on 01-14-2023 Color (U) Yellow Yellow [facility] Urine glucose detectionOrder ed By: Dr. Chambers on 01-14-2023 Glucose Ql (U) Normal mg/dl Normal [facility] Urine leukocyte esterase det ection by dipstickOrdered By: Dr. Chambers on 01-14-2023 Leukocyte esterase Test strip Ql (U) Negative Negative [facility] Urine pHOrdered By: Dr. Graham goodrich on 01-14-2023 pH (U) 6.0 [pH] 5.0 - 8.0 [facility] Urine sediment bacteria coun t by microscopy (number/high power field)Ordered By: Dr. Chambers on 01-14-2023 Bacteria LM.HPF (Urine sed) [#/Area] 0 /[HPF] None Seen [facility] Urine specific gravity measu rementOrdered By: Dr. Chambers on 01-14-2023 Specific gravity (U) [Rel density] 1.020 1.002-1.03 0 [facility] Urobilinogen Auto test strip Ql (U)Ordered By: Dr. Chambers on 01-14-2023 Urobilinogen Ql (U) 1 mg/dl Normal [facility] Absolute lymphocyte countOrd ered By: ED PROVIDER on 01-12-2023 Lymphocytes Auto (Unsp spec) [#/Vol] 3.52 10*3/uL 0.83-4.51 [facility] Basophil percentageOrdered B y: ED PROVIDER on 01-12-2023 Basophils/100 WBC (Bld) 0.4 % 0-1 [facility] Chloride [Moles/Vol] 108 mmol/L 98-107 [facility] Eosinophils/100 WBC (Bld) 2.8 % 0-5 [facility] Glucose [Mass/Vol] 102 mg/dL 74-106 [facility] Comment on above: Fasting Glucose resu lt from 100 to 125 mg/dL suggests IMPAIRED HOMEOSTASIS per A.D.A. criteria. Neutrophils (Bld) [#/Vol] 6.5 10*3/uL 2.0-7.7 [facility] Neutrophils/100 WBC (Bld) 58.3 % 47-70 [facility] Potassium [Moles/Vol] 4.0 mmol/L 3.5-5.1 [facility] Sodium [Moles/Vol] 140 mmol/L 136-145 [facility] WBC (Bld) [#/Vol] 11.2 10*3/uL 4.4-11.0 [facility] Blood erythrocytes count (nu mber/volume)Ordered By: ED PROVIDER on 01-12-2023 RBC (Bld) [#/Vol] 4.67 10*6/uL 4.2-5.4 [facility] Blood hemoglobin measurement (mass/volume)Ordered By: ED PROVIDER on 01-12-2023 Hemoglobin (Bld) [Mass/Vol] 14.7 g/dL 12.0-15.0 [facility] Blood lymphocytes/100 leukoc ytesOrdered By: ED PROVIDER on 01-12-2023 Lymphocytes/100 WBC (Bld) 31.3 % 19-41 [facility] Blood monocytes/100 leukocyt esOrdered By: ED PROVIDER on 01-12-2023 Monocytes/100 WBC (Bld) 6.8 % 0-10 [facility] Blood platelet mean volumeOr dered By: ED PROVIDER on 01-12-2023 Platelet mean volume (Bld) [Entitic vol] 8.8 fL 6.2-12.0 [facility] Determination of erythrocyte mean corpuscular volume (MCV)Ordered By: ED PROVIDER on 01-12-2023 MCV (RBC) [Entitic vol] 96.1 fL 81-99 [facility] Hematocrit Auto (Bld) [Volum e fraction]Ordered By: ED PROVIDER on 01-12-2023 Hematocrit (Bld) [Volume fraction] 44.9 % 37-47 [facility] INR in Blood by Coagulation assayOrdered By: ED PROVIDER on 01-12-2023 INR Coag (Bld) [Relative time] 1.1 {INR} [facility] - Chemistry and C hemistry - challengeOrdered By: ED PROVIDER on 01-12-2023 CO2 [Moles/Vol] 25.0 mmol/L 21.0-32.0 [facility] Urea nitrogen/Creatinine [Mass ratio] 15.7 mg/mg 10-20 [facility] Laboratory - CoagulationOrde red By: ED PROVIDER on 01-12-2023 PT Coag (PPP) [Time] 14.4 s 11.7-14.9 [facility] Laboratory - Hematology and Cell countsOrdered By: ED PROVIDER on 01-12-2023 Erythrocyte distribution width (RBC) [Entitic vol] 45.2 fL 35.1-43.9 [facility] Erythrocyte distribution width (RBC) [Ratio] 13.0 % 11.6-14.6 [facility] Immature granulocytes/100 WBC (Bld) 0.400 % 0.0-0.9 [facility] Comment on above: IG% - Immature Granu locytes (promyelocytes, myelocytes and metamyelocytes) > 1% indicates that a LEFT SHIFT is Present. MCH (RBC) [Entitic mass] 31.5 pg 27.0-32.0 [facility] Nucleated RBC/100 WBC (Bld) [Ratio] 0 % 0-5 [facility] MCHC Auto (RBC) [Mass/Vol]Or dered By: ED PROVIDER on 01-12-2023 MCHC (RBC) [Mass/Vol] 32.7 g/dL 32-36 [facility] No Panel InformationOrdered By: ED PROVIDER on 01-12-2023 Estimated Creatinine Clearance Calc 55.95 ml/min [facility] Estimated GFR (MDRD) Amer 82 mL/min >60 [facility] Comment on above: GFR Calc Estimated GFR (MDRD) Non-Af Amer 67 mL/min >60 [facility] Comment on above: Non- GFR Calc Troponin I High Sensitivity 47 pg/mL 3.0-54.0 [facility] Comment on above: Please Note: New Amanda t Units and Gender Specific Reference Ranges. For more information see Policy Stat Procedure [place] High Sensitivity Troponin (TNIH) and attachments. Platelets bldOrdered By: ED PROVIDER on 01-12-2023 Platelets (Bld) [#/Vol] 329 10*3/uL 150-450 [facility] Serum or plasma calcium areli urement (mass/volume)Ordered By: ED PROVIDER on 01-12-2023 Calcium [Mass/Vol] 9.3 mg/dL 8.5-10.1 [facility] Serum or plasma creatinine m easurement (mass/volume)Ordered By: ED PROVIDER on 01-12-2023 Creatinine [Mass/Vol] 0.89 mg/dL 0.55-1.02 [facility] Comment on above: The validity of the calculated GFR & GFRAA in patients over 70 years has not been determined. Clinical correlation is essential. Serum or plasma urea nitroge n measurement (mass/volume)Ordered By: ED PROVIDER on 01-12-2023 Urea nitrogen [Mass/Vol] 14 mg/dL 7-18 [facility] Thin prep Papanicolaou smear with manual screeningOrdered By: ED PROVIDER on 01-12-2023 Thin prep Papanicolaou smear with manual screening 7 5-15 [facility] Absolute lymphocyte countOrd ered By: Danny Olivo on 01-10-2023 Lymphocytes Auto (Unsp spec) [#/Vol] 3.85 10*3/uL 0.83-4.51 [facility] Basophil percentageOrdered B y: Danny Olivo on 01-10-2023 Basophils/100 WBC (Bld) 0.4 % 0-1 [facility] Chloride [Moles/Vol] 102 mmol/L 98-107 [facility] Eosinophils/100 WBC (Bld) 3.0 % 0-5 [facility] Glucose [Mass/Vol] 99 mg/dL 74-106 [facility] Neutrophils (Bld) [#/Vol] 7.7 10*3/uL 2.0-7.7 [facility] Neutrophils/100 WBC (Bld) 59.7 % 47-70 [facility] Potassium [Moles/Vol] 3.8 mmol/L 3.5-5.1 [facility] Sodium [Moles/Vol] 139 mmol/L 136-145 [facility] WBC (Bld) [#/Vol] 12.9 10*3/uL 4.4-11.0 [facility] Blood erythrocytes count (nu mber/volume)Ordered By: Danny Olivo on 01-10-2023 RBC (Bld) [#/Vol] 4.85 10*6/uL 4.2-5.4 [facility] Blood hemoglobin measurement (mass/volume)Ordered By: Danny Olivo on 01-10-2023 Hemoglobin (Bld) [Mass/Vol] 15.3 g/dL 12.0-15.0 [facility] Blood lymphocytes/100 leukoc ytesOrdered By: Danny Olivo on 01-10-2023 Lymphocytes/100 WBC (Bld) 29.8 % 19-41 [facility] Blood monocytes/100 leukocyt esOrdered By: Danny Olivo on 01-10-2023 Monocytes/100 WBC (Bld) 6.4 % 0-10 [facility] Blood platelet mean volumeOr dered By: Danny Olivo on 01-10-2023 Platelet mean volume (Bld) [Entitic vol] 8.6 fL 6.2-12.0 [facility] Determination of erythrocyte mean corpuscular volume (MCV)Ordered By: Danny Olivo on 01-10-2023 MCV (RBC) [Entitic vol] 96.3 fL 81-99 [facility] Hematocrit Auto (Bld) [Volum e fraction]Ordered By: Danny Olivo on 01-10-2023 Hematocrit (Bld) [Volume fraction] 46.7 % 37-47 [facility] INR in Blood by Coagulation assayOrdered By: Danny Olivo on 01-10-2023 INR Coag (Bld) [Relative time] 1.4 {INR} [facility] Laboratory - Chemistry and C hemistry - challengeOrdered By: Danny Olivo on 01-10-2023 CO2 [Moles/Vol] 30.0 mmol/L 21.0-32.0 [facility] Natriuretic peptide B (Bld) [Mass/Vol] 378.6 pg/mL 0-100 [facility] Urea nitrogen/Creatinine [Mass ratio] 21.3 mg/mg 10-20 [facility] Laboratory - CoagulationOrde red By: Danny Olivo on 01-10-2023 PT Coag (PPP) [Time] 17.3 s 11.7-14.9 [facility] Laboratory - Hematology and Cell countsOrdered By: Danny Olivo on 01-10-2023 Erythrocyte distribution width (RBC) [Entitic vol] 45.3 fL 35.1-43.9 [facility] Erythrocyte distribution width (RBC) [Ratio] 12.9 % 11.6-14.6 [facility] Immature granulocytes/100 WBC (Bld) 0.700 % 0.0-0.9 [facility] Comment on above: IG% - Immature Granu locytes (promyelocytes, myelocytes and metamyelocytes) > 1% indicates that a LEFT SHIFT is Present. MCH (RBC) [Entitic mass] 31.5 pg 27.0-32.0 [facility] Nucleated RBC/100 WBC (Bld) [Ratio] 0 % 0-5 [facility] MCHC Auto (RBC) [Mass/Vol]Or dered By: Danny Olivo on 01-10-2023 MCHC (RBC) [Mass/Vol] 32.8 g/dL 32-36 [facility] No Panel InformationOrdered By: Danny Olivo on 01-10-2023 Troponin I High Sensitivity 61 pg/mL 3.0-54.0 [facility] Comment on above: Please Note: New Amanda t Units and Gender Specific Reference Ranges. For more information see Policy Stat Procedure [place] High Sensitivity Troponin (TNIH) and attachments. Estimated Creatinine Clearance Calc 50.81 ml/min [facility] Estimated GFR (MDRD) Amer 73 mL/min >60 [facility] Comment on above: GFR Calc Estimated GFR (MDRD) Non-Af Amer 60 mL/min >60 [facility] Comment on above: Non- GFR Calc Platelets bldOrdered By: Mora Olivo on 01-10-2023 Platelets (Bld) [#/Vol] 360 10*3/uL 150-450 [facility] Serum or plasma calcium areli urement (mass/volume)Ordered By: Danny Olivo on 01-10-2023 Calcium [Mass/Vol] 9.7 mg/dL 8.5-10.1 [facility] Serum or plasma creatinine m easurement (mass/volume)Ordered By: Danny Olivo on 01-10-2023 Creatinine [Mass/Vol] 0.98 mg/dL 0.55-1.02 [facility] Comment on above: The validity of the calculated GFR & GFRAA in patients over 70 years has not been determined. Clinical correlation is essential. Serum or plasma urea nitroge n measurement (mass/volume)Ordered By: Danny Olivo on 01-10-2023 Urea nitrogen [Mass/Vol] 21 mg/dL 7-18 [facility] Thin prep Papanicolaou smear with manual screeningOrdered By: Danny Olivo on 01-10-2023 Thin prep Papanicolaou smear with manual screening 7 5-15 [facility] Absolute lymphocyte countOrd ered By: Dr. Madrid on 01-04-2023 Lymphocytes Auto (Unsp spec) [#/Vol] 1.97 10*3/uL 0.83-4.51 [facility] Basophil percentageOrdered B y: Dr. Madrid on 01-04-2023 Basophils/100 WBC (Bld) 0.2 % 0-1 [facility] Bilirubin [Mass/Vol] 0.20 mg/dL 0.20-1.00 [facility] Comment on above: For patients on eltr ombopag therapy, use of Dimension [place] TBIL is not recommended. Chloride [Moles/Vol] 105 mmol/L 98-107 [facility] Eosinophils/100 WBC (Bld) 0.0 % 0-5 [facility] Glucose [Mass/Vol] 123 mg/dL 74-106 [facility] Comment on above: Fasting Glucose resu lt from 100 to 125 mg/dL suggests IMPAIRED HOMEOSTASIS per A.D.A. criteria. Neutrophils (Bld) [#/Vol] 13.1 10*3/uL 2.0-7.7 [facility] Neutrophils/100 WBC (Bld) 80.4 % 47-70 [facility] Potassium [Moles/Vol] 4.2 mmol/L 3.5-5.1 [facility] Protein [Mass/Vol] 6.6 g/dL 6.4-8.2 [facility] Sodium [Moles/Vol] 138 mmol/L 136-145 [facility] WBC (Bld) [#/Vol] 16.2 10*3/uL 4.4-11.0 [facility] Blood erythrocytes count (nu mber/volume)Ordered By: Dr. Madrid on 01-04-2023 RBC (Bld) [#/Vol] 4.02 10*6/uL 4.2-5.4 [facility] Blood hemoglobin measurement (mass/volume)Ordered By: Dr. Madrid on 01-04-2023 Hemoglobin (Bld) [Mass/Vol] 12.6 g/dL 12.0-15.0 [facility] Blood lymphocytes/100 leukoc ytesOrdered By: Dr. Madrid on 01-04-2023 Lymphocytes/100 WBC (Bld) 12.1 % 19-41 [facility] Blood monocytes/100 leukocyt esOrdered By: Dr. Madrid on 01-04-2023 Monocytes/100 WBC (Bld) 5.9 % 0-10 [facility] Blood platelet mean volumeOr dered By: Dr. Madrid on 01-04-2023 Platelet mean volume (Bld) [Entitic vol] 9.1 fL 6.2-12.0 [facility] Determination of erythrocyte mean corpuscular volume (MCV)Ordered By: Dr. Madrid on 01-04-2023 MCV (RBC) [Entitic vol] 95.8 fL 81-99 [facility] Hematocrit Auto (Bld) [Volum e fraction]Ordered By: Dr. Madrid on 01-04-2023 Hematocrit (Bld) [Volume fraction] 38.5 % 37-47 [facility] Laboratory - Chemistry and C hemistry - challengeOrdered By: Dr. Madrid on 01-04-2023 ALP [Catalytic activity/Vol] 205 U/L 45-117 [facility] ALT [Catalytic activity/Vol] 19 U/L 13-56 [facility] CO2 [Moles/Vol] 28.0 mmol/L 21.0-32.0 [facility] Free T4 [Mass/Vol] 0.82 ng/dL 0.76-1.46 [facility] Globulin (S) [Mass/Vol] 3.8 g/dL 2.2-4.2 [facility] Urea nitrogen/Creatinine [Mass ratio] 37.2 mg/mg 10-20 [facility] Laboratory - Hematology and Cell countsOrdered By: Dr. Madrid on 01-04-2023 Erythrocyte distribution width (RBC) [Entitic vol] 42.5 fL 35.1-43.9 [facility] Erythrocyte distribution width (RBC) [Ratio] 12.2 % 11.6-14.6 [facility] Immature granulocytes/100 WBC (Bld) 1.400 % 0.0-0.9 [facility] Comment on above: IG% - Immature Granu locytes (promyelocytes, myelocytes and metamyelocytes) > 1% indicates that a LEFT SHIFT is Present. MCH (RBC) [Entitic mass] 31.3 pg 27.0-32.0 [facility] Nucleated RBC/100 WBC (Bld) [Ratio] 0 % 0-5 [facility] MCHC Auto (RBC) [Mass/Vol]Or dered By: Dr. Madrid on 01-04-2023 MCHC (RBC) [Mass/Vol] 32.7 g/dL 32-36 [facility] No Panel InformationOrdered By: Dr. Madrid on 01-04-2023 Estimated Creatinine Clearance Calc 54.72 ml/min [facility] Estimated GFR (MDRD) Amer 79 mL/min >60 [facility] Comment on above: GFR Calc Estimated GFR (MDRD) Non-Af Amer 65 mL/min >60 [facility] Comment on above: Non- GFR Calc Thyroid Stimulating Hormone (TSH) 0.25 uIU/mL 0.358-3.74 [facility] Platelets bldOrdered By: Dr. Madrid on 01-04-2023 Platelets (Bld) [#/Vol] 277 10*3/uL 150-450 [facility] Serum or plasma albumin areli urement (mass/volume)Ordered By: Dr. Madrid on 01-04-2023 Albumin [Mass/Vol] 2.8 g/dL 3.2-5.0 [facility] Serum or plasma albumin/glob ulin mass ratioOrdered By: Dr. Madrid on 01-04-2023 Albumin/Globulin [Mass ratio] 0.7 {ratio} 0.9-2.4 [facility] Serum or plasma calcium areli urement (mass/volume)Ordered By: Dr. Madrid on 01-04-2023 Calcium [Mass/Vol] 9.1 mg/dL 8.5-10.1 [facility] Serum or plasma creatinine m easurement (mass/volume)Ordered By: Dr. Madrid on 01-04-2023 Creatinine [Mass/Vol] 0.91 mg/dL 0.55-1.02 [facility] Comment on above: The validity of the calculated GFR & GFRAA in patients over 70 years has not been determined. Clinical correlation is essential. Serum or plasma urea nitroge n measurement (mass/volume)Ordered By: Dr. Madrid on 01-04-2023 Urea nitrogen [Mass/Vol] 34 mg/dL 7-18 [facility] Thin prep Papanicolaou smear with manual screeningOrdered By: Dr. Madrid on 01-04-2023 Thin prep Papanicolaou smear with manual screening 13 U/L 15-37 [facility] Thin prep Papanicolaou smear with manual screening 5 5-15 [facility] Basophil percentageOrdered B y: Dr. Madrid on 01-03-2023 Cholesterol [Mass/Vol] 220 mg/dL <200 [facility] Comment on above: <200 mg/dL Desirable 200-240 mg/dL Borderline >240 mg/dL High Risk Triglyceride [Mass/Vol] 119 mg/dL <199 [facility] Comment on above: The drugs N-Acetylcy steine and Metamizole may falsely depress this assay.Serum Triglycerides Reference Interval Normal <150 mg/dL Borderline high 150 - 199 mg/dL High 200 - 499 mg/dL Very High > or = 500 mg/dL Laboratory - Chemistry and C hemistry - challengeOrdered By: Dr. Madrid on 01-03-2023 Cobalamin (Vitamin B12) [Mass/Vol] 216 pg/mL 211-911 [facility] No Panel InformationOrdered By: Dr. Madrid on 01-03-2023 Vitamin D 25-Hydroxy 21.6 ng/mL [facility] Comment on above: Vitamin D 25(OH) Sta tus Range Deficiency <20 ng/mL (50nmol/L) Insufficiency 20 - 30 ng/mL (50 - 75 nmol/L) Sufficiency 30 - 100 ng/mL (75 - 250 nmol/L) Toxicity >100 ng/mL (>250 nmol/L) Serum or plasma cholesterol in HDL measurement (mass/volume)Ordered By: Dr. Madrid on 01-03-2023 Cholesterol in HDL [Mass/Vol] 46 mg/dL >40 [facility] Comment on above: The drugs N-Acetylcy steine and Metamizole may falsely depress this assay. Reference Range HDL <40 mg/dL Low HDL Cholesterol HDL >or= 60 mg/dL High HDL Cholesterol Serum or plasma cholesterol in VLDL measurement (mass/volume)Ordered By: Dr. Madrid on 01-03-2023 Cholesterol in VLDL [Mass/Vol] 24 mg/dL 5-40 [facility] Serum or plasma folate measu rement (mass/volume)Ordered By: Dr. Madrid on 01-03-2023 Folate [Mass/Vol] 10.40 ng/mL 3.1-55.4 [facility] Serum or plasma low density lipoprotein (LDL) cholesterol measurement (mass/volume)Ordered By: Dr. Madrid on 01-03-2023 Cholesterol in LDL [Mass/Vol] 150 mg/dL 0-130 [facility] Whole blood hemoglobin A1c/t otal hemoglobin ratio (mass fraction)Ordered By: Dr. Madrid on 01-03-2023 HbA1c (Bld) [Mass fraction] 5.5 % 3.8-5.6 [facility] Comment on above: Normal < 5.7 % Predi abetic 5.7 - 6.4 % Diabetic >or= 6.5 % Please note range changes. Absolute lymphocyte countOrd ered By: Dr. Serrano on 01-02-2023 Lymphocytes Auto (Unsp spec) [#/Vol] 2.84 10*3/uL 0.83-4.51 [facility] Basophil percentageOrdered B y: Dr. Madrid on 01-02-2023 Lactate [Moles/Vol] 1.3 mmol/L 0.4-2.0 [facility] Basophil percentage 4.4 mg/dL 2.5-4.9 [facility] Basophil percentageOrdered B y: Dr. Serrano on 01-02-2023 Basophils/100 WBC (Bld) 1.4 % 0-1 [facility] Chloride [Moles/Vol] 109 mmol/L 98-107 [facility] Eosinophils/100 WBC (Bld) 13.7 % 0-5 [facility] Glucose [Mass/Vol] 99 mg/dL 74-106 [facility] Neutrophils (Bld) [#/Vol] 3.3 10*3/uL 2.0-7.7 [facility] Neutrophils/100 WBC (Bld) 41.8 % 47-70 [facility] Potassium [Moles/Vol] 4.3 mmol/L 3.5-5.1 [facility] Sodium [Moles/Vol] 140 mmol/L 136-145 [facility] WBC (Bld) [#/Vol] 7.9 10*3/uL 4.4-11.0 [facility] Blood erythrocytes count (nu mber/volume)Ordered By: Dr. Serrano on 01-02-2023 RBC (Bld) [#/Vol] 4.43 10*6/uL 4.2-5.4 [facility] Blood hemoglobin measurement (mass/volume)Ordered By: Dr. Serrano on 01-02-2023 Hemoglobin (Bld) [Mass/Vol] 14.2 g/dL 12.0-15.0 [facility] Blood lymphocytes/100 leukoc ytesOrdered By: Dr. Serrano on 01-02-2023 Lymphocytes/100 WBC (Bld) 36.1 % 19-41 [facility] Blood monocytes/100 leukocyt esOrdered By: Dr. Serrano on 01-02-2023 Monocytes/100 WBC (Bld) 6.6 % 0-10 [facility] Blood platelet adequacy dete ction by light microscopyOrdered By: Dr. Madrid on 01-02-2023 Platelets LM Ql (Bld) ADEQUATE ADEQ [facility] Blood platelet mean volumeOr dered By: Dr. Serrano on 01-02-2023 Platelet mean volume (Bld) [Entitic vol] 9.7 fL 6.2-12.0 [facility] Determination of erythrocyte mean corpuscular volume (MCV)Ordered By: Dr. Serrano on 01-02-2023 MCV (RBC) [Entitic vol] 98.6 fL 81-99 [facility] Direct bilirubinOrdered By: Dr. Madrid on 01-02-2023 Bilirubin.direct [Mass/Vol] 0.06 mg/dL 0.00-0.30 [facility] Hematocrit Auto (Bld) [Volum e fraction]Ordered By: Dr. Serrano on 01-02-2023 Hematocrit (Bld) [Volume fraction] 43.7 % 37-47 [facility] Iron measurement (mass/mass) Ordered By: Dr. Madrid on 01-02-2023 Iron (Unsp spec) [Mass/Mass] 86 ug/dL 50-170 [facility] Laboratory - Chemistry and C hemistry - challengeOrdered By: Dr. Madrid on 01-02-2023 Magnesium [Mass/Vol] 2.2 mg/dL 1.6-2.6 [facility] Natriuretic peptide B (Bld) [Mass/Vol] 303.3 pg/mL 0-100 [facility] Laboratory - Chemistry and C hemistry - challengeOrdered By: Dr. Serrano on 01-02-2023 CO2 [Moles/Vol] 31.0 mmol/L 21.0-32.0 [facility] Urea nitrogen/Creatinine [Mass ratio] 31.0 mg/mg 10-20 [facility] Laboratory - Hematology and Cell countsOrdered By: Dr. Madrid on 01-02-2023 Anisocytosis Ql (Bld) RARE [facility] Laboratory - Hematology and Cell countsOrdered By: Dr. Serrano on 01-02-2023 Erythrocyte distribution width (RBC) [Entitic vol] 45.0 fL 35.1-43.9 [facility] Erythrocyte distribution width (RBC) [Ratio] 12.3 % 11.6-14.6 [facility] Immature granulocytes/100 WBC (Bld) 0.400 % 0.0-0.9 [facility] Comment on above: IG% - Immature Granu locytes (promyelocytes, myelocytes and metamyelocytes) > 1% indicates that a LEFT SHIFT is Present. MCH (RBC) [Entitic mass] 32.1 pg 27.0-32.0 [facility] Nucleated RBC/100 WBC (Bld) [Ratio] 0 % 0-5 [facility] Laboratory - Microbiology an d Antimicrobial susceptibilityOrdered By: Dr. Madrid on 01-02-2023 Respiratory pathogens DNA and RNA 12b panel KAYDEN+probe (Unsp spec) [facility] MCHC Auto (RBC) [Mass/Vol]Or dered By: Dr. Serrano on 01-02-2023 MCHC (RBC) [Mass/Vol] 32.5 g/dL 32-36 [facility] Macrocytes detectionOrdered By: Dr. Madrid on 01-02-2023 Macrocytes Ql (Bld) RARE [facility] No Panel InformationOrdered By: Dr. Madrid on 01-02-2023 Troponin I High Sensitivity 402 pg/mL 3.0-54.0 [facility] Comment on above: Critical Result(s) C alled at: 17:07:51 01/02/2023 by: MARKY MCGINNIS to [facility]. Results read back by same. Please Note: New Test Units and Gender Specific Reference Ranges. For more information see Policy Stat Procedure [place] High Sensitivity Troponin (TNIH) and attachments. Atypical Lymphocytes 1+ % [facility] Reactive Lymphocytes 1+ [facility] Total Iron Binding Capacity 260 ug/dL 250-450 [facility] No Panel InformationOrdered By: Dr. Serrano on 01-02-2023 Estimated Creatinine Clearance Calc 61.67 ml/min [facility] Estimated GFR (MDRD) Amer 87 mL/min >60 [facility] Comment on above: GFR Calc Estimated GFR (MDRD) Non-Af Amer 72 mL/min >60 [facility] Comment on above: Non- GFR Calc Troponin I High Sensitivity 613 pg/mL 3.0-54.0 [facility] Comment on above: Critical Result(s) C alled at: 10:59:25 01/02/2023 by: Kaye Lamb to [facility]. Results read back by same. Please Note: New Test Units and Gender Specific Reference Ranges. For more information see Policy Stat Procedure [place] High Sensitivity Troponin (TNIH) and attachments. Platelets bldOrdered By: Dr. Serrano on 01-02-2023 Platelets (Bld) [#/Vol] 311 10*3/uL 150-450 [facility] RBC morphologyOrdered By: Dr Isabela Madrid on 01-02-2023 RBC morphology finding Nom (Bld) N CHROM NORMAL NORM C&C [facility] Serum or plasma calcium areli urement (mass/volume)Ordered By: Dr. Serrano on 01-02-2023 Calcium [Mass/Vol] 9.6 mg/dL 8.5-10.1 [facility] Serum or plasma creatinine m easurement (mass/volume)Ordered By: Dr. Serrano on 01-02-2023 Creatinine [Mass/Vol] 0.84 mg/dL 0.55-1.02 [facility] Comment on above: The validity of the calculated GFR & GFRAA in patients over 70 years has not been determined. Clinical correlation is essential. Serum or plasma ferritin gloria surement (mass/volume)Ordered By: Dr. Madrid on 01-02-2023 Ferritin [Mass/Vol] 72 ng/mL 8-252 [facility] Serum or plasma urea nitroge n measurement (mass/volume)Ordered By: Dr. Serrano on 01-02-2023 Urea nitrogen [Mass/Vol] 26 mg/dL 7-18 [facility] Thin prep Papanicolaou smear with manual screeningOrdered By: Dr. Serrano on 01-02-2023 Thin prep Papanicolaou smear with manual screening 0 5-15 [facility] Toxic leukocyte granulation detectionOrdered By: Dr. Madrid on 01-02-2023 Toxic granules LM Ql (Bld) RARE [facility] Culture, urineOrdered By: Dr Isabela Serrano on 10-02-2022 Bacteria identified Cx Nom (U) Mixed Gram Pos & Gram Neg Org [facility] Absolute lymphocyte countOrd ered By: Dr. Serrano on 09-30-2022 Lymphocytes Auto (Unsp spec) [#/Vol] 3.35 10*3/uL 0.83-4.51 [facility] Basophil percentageOrdered B y: Dr. Serrano on 09-30-2022 Basophil percentage 0 SEEN /hpf 0-5 [facility] Basophil percentage 95 mg/dL 74-106 [facility] Basophil percentage 140 mmol/L 136-145 [facility] Basophil percentage 3.8 mmol/L 3.5-5.1 [facility] Basophil percentage 107 mmol/L 98-107 [facility] Basophils (Bld) [#/Vol] 7.7 10*3/uL 4.4-11.0 [facility] Basophils (Bld) [#/Vol] 3.5 10*3/uL 2.0-7.7 [facility] Basophils/100 WBC (Bld) 44.9 % 47-70 [facility] Basophils/100 WBC (Bld) 2.1 % 0-5 [facility] Basophils/100 WBC (Bld) 0.9 % 0-1 [facility] Chloride [Moles/Vol] 107 mmol/L 98-107 [facility] Eosinophils/100 WBC (Bld) 2.1 % 0-5 [facility] Glucose [Mass/Vol] 95 mg/dL 74-106 [facility] Neutrophils (Bld) [#/Vol] 3.5 10*3/uL 2.0-7.7 [facility] Neutrophils/100 WBC (Bld) 44.9 % 47-70 [facility] Potassium [Moles/Vol] 3.8 mmol/L 3.5-5.1 [facility] Sodium [Moles/Vol] 140 mmol/L 136-145 [facility] WBC (Bld) [#/Vol] 7.7 10*3/uL 4.4-11.0 [facility] Bilirubin Test strip Ql (U)O rdered By: Dr. Serrano on 09-30-2022 Bilirubin Ql (U) Negative Negative [facility] Blood erythrocytes count (nu mber/volume)Ordered By: Dr. Serrano on 09-30-2022 RBC (Bld) [#/Vol] 4.87 10*6/uL 4.2-5.4 [facility] Blood hemoglobin measurement (mass/volume)Ordered By: Dr. Serrano on 09-30-2022 Hemoglobin (Bld) [Mass/Vol] 15.4 g/dL 12.0-15.0 [facility] Blood lymphocytes/100 leukoc ytesOrdered By: Dr. Serrano on 09-30-2022 Lymphocytes/100 WBC (Bld) 43.3 % 19-41 [facility] Blood monocytes/100 leukocyt esOrdered By: Dr. Serrano on 09-30-2022 Monocytes/100 WBC (Bld) 8.4 % 0-10 [facility] Blood platelet mean volumeOr dered By: Dr. Serrano on 09-30-2022 Platelet mean volume (Bld) [Entitic vol] 9.3 fL 6.2-12.0 [facility] Determination of erythrocyte mean corpuscular volume (MCV)Ordered By: Dr. Serrano on 09-30-2022 MCV (RBC) [Entitic vol] 94.9 fL 81-99 [facility] Hematocrit Auto (Bld) [Volum e fraction]Ordered By: Dr. Serrano on 09-30-2022 Hematocrit (Bld) [Volume fraction] 46.2 % 37-47 [facility] Ketones Test strip Ql (U)Ord ered By: Dr. Serrano on 09-30-2022 Ketones Ql (U) 5 mg/dl Negative [facility] Laboratory - Chemistry and C hemistry - challengeOrdered By: Dr. Serrano on 09-30-2022 CO2 [Moles/Vol] 28.0 mmol/L 21.0-32.0 [facility] Urea nitrogen/Creatinine [Mass ratio] 17.6 mg/mg 10-20 [facility] Laboratory - Hematology and Cell countsOrdered By: Dr. Serrano on 09-30-2022 Erythrocyte distribution width (RBC) [Entitic vol] 45.0 fL 35.1-43.9 [facility] Erythrocyte distribution width (RBC) [Ratio] 12.9 % 11.6-14.6 [facility] Immature granulocytes/100 WBC (Bld) 0.400 % 0.0-0.9 [facility] Comment on above: IG% - Immature Granu locytes (promyelocytes, myelocytes and metamyelocytes) > 1% indicates that a LEFT SHIFT is Present. MCH (RBC) [Entitic mass] 31.6 pg 27.0-32.0 [facility] Nucleated RBC/100 WBC (Bld) [Ratio] 0 % 0-5 [facility] MCHC Auto (RBC) [Mass/Vol]Or dered By: Dr. Serrano on 09-30-2022 MCHC (RBC) [Mass/Vol] 33.3 g/dL 32-36 [facility] Mucus LM Ql (Urine sed)Order ed By: Dr. Serrano on 09-30-2022 Mucus Ql (Urine sed) 0 SEEN /hpf [facility] Nitrite Test strip Ql (U)Ord ered By: Dr. Serrano on 09-30-2022 Nitrite Ql (U) Positive Negative [facility] No Panel InformationOrdered By: Dr. Serrano on 09-30-2022 Estimated Creatinine Clearance Calc 48.62 ml/min [facility] Estimated GFR (MDRD) Amer 65 mL/min >60 [facility] Comment on above: GFR Calc Estimated GFR (MDRD) Non-Af Amer 54 mL/min >60 [facility] Comment on above: Non- GFR Calc 31.6 pg 27.0-32.0 [facility] 12.9 % 11.6-14.6 [facility] 45.0 fl 35.1-43.9 [facility] 0.400 % 0.0-0.9 [facility] 0 % 0-5 [facility] 54 mL/min >60 [facility] 65 mL/min >60 [facility] 48.62 ml/min [facility] 17.6 RATIO 10-20 [facility] 28.0 mmol/L 21.0-32.0 [facility] Platelets bldOrdered By: Dr. Serrano on 09-30-2022 Platelets (Bld) [#/Vol] 299 10*3/uL 150-450 [facility] Protein Test strip Ql (U)Ord ered By: Dr. Serrano on 09-30-2022 Protein Ql (U) Negative Negative [facility] Serum or plasma calcium areli urement (mass/volume)Ordered By: Dr. Serrano on 09-30-2022 Calcium [Mass/Vol] 10.2 mg/dL 8.5-10.1 [facility] Serum or plasma creatinine m easurement (mass/volume)Ordered By: Dr. Serrano on 09-30-2022 Creatinine [Mass/Vol] 1.08 mg/dL 0.55-1.02 [facility] Comment on above: The validity of the calculated GFR & GFRAA in patients over 70 years has not been determined. Clinical correlation is essential. Serum or plasma urea nitroge n measurement (mass/volume)Ordered By: Dr. Serrano on 09-30-2022 Urea nitrogen [Mass/Vol] 19 mg/dL 7-18 [facility] Squamous epithelial cells de tection in urine sediment by light microscopyOrdered By: Dr. Serrano on 09-30-2022 Epithelial cells.squamous LM Ql (Urine sed) 5-10 SEEN /hpf 5-10 [facility] Thin prep Papanicolaou smear with manual screeningOrdered By: Dr. Serrano on 09-30-2022 Thin prep Papanicolaou smear with manual screening 5 5-15 [facility] US ABD AORTAon 09-30-2022 Radiology Result ACTIONABLE Abnormal [facility] Urine blood detectionOrdered By: Dr. Serrano on 09-30-2022 RBC Ql (U) 50 /ul Negative [facility] RBC Ql (U) 0 SEEN /hpf 0-5 [facility] Urine clarityOrdered By: Dr. Serrano on 09-30-2022 Clarity (U) Clear Clear [facility] Urine color determinationOrd ered By: Dr. Serrano on 09-30-2022 Color (U) Yellow Yellow [facility] Urine glucose detectionOrder ed By: Dr. Serrano on 09-30-2022 Glucose Ql (U) Normal mg/dl Normal [facility] Urine leukocyte esterase det ection by dipstickOrdered By: Dr. Serrano on 09-30-2022 Leukocyte esterase Test strip Ql (U) 25 /ul Negative [facility] Urine pHOrdered By: Dr. Grecia polk on 09-30-2022 pH (U) 6.5 [pH] 5.0 - 8.0 [facility] Urine sediment bacteria coun t by microscopy (number/high power field)Ordered By: Dr. Serrano on 09-30-2022 Bacteria LM.HPF (Urine sed) [#/Area] 0 /[HPF] None Seen [facility] Urine specific gravity measu rementOrdered By: Dr. Serrano on 09-30-2022 Specific gravity (U) [Rel density] 1.020 1.002-1.03 0 [facility] Urobilinogen Auto test strip Ql (U)Ordered By: Dr. Serrano on 09-30-2022 Urobilinogen Ql (U) Normal mg/dl Normal [facility] CBC panel Auto (Bld)on 09-23 Erythrocyte distribution width (RBC) [Ratio] 13.2 % 11.5 - 15.0 % [facility] Hematocrit (Bld) [Volume fraction] 42.4 % 36.0 - 46.0 % [facility] Hemoglobin (Bld) [Mass/Vol] 13.8 g/dL 11.5 - 15.5 g/dL [facility] MCH (RBC) [Entitic mass] 32.0 pg 26. 0 - 34.0 pg [facility] MCHC (RBC) [Mass/Vol] 32.5 g/dL 30.5 - 36.0 g/dL [facility] MCV (RBC) [Entitic vol] 98.4 fL 80.0 - 100.0 fL [facility] Nucleated RBC (Bld) [#/Vol] <0.01 k/uL [facility] Platelet mean volume (Bld) [Entitic vol] 9.2 fL 9.0 - 12.7 fL [facility] Platelets (Bld) [#/Vol] 311 10*3/uL 150 - 400 k/uL [facility] RBC (Bld) [#/Vol] 4.31 10*6/uL 3.90 - 5.20 m/uL [facility] WBC (Bld) [#/Vol] 7.12 10*3/uL 3.70 - 11.00 k/uL [facility] HbA1c (Bld)on 09-23-2022 Average glucose Estimated from glycated hemoglobin (Bld) [Mass/Vol] 103 mg/dL [facility] HbA1c (Bld) [Mass fraction] 5.2 % 4.3 - 5.6 % [facility] UA DIP, URINE (POC)on 2022 BILIRUBIN UA (POCT) Negative Negative [facility] CLARITY UA (POCT) [facility] COLOR UA (POCT) Dark yellow [facility] GLUCOSE UA (POCT) Negative Negative mg/dL [facility] HEMOGLOBIN/BLOOD UA (POCT) Negative Negative [facility] KETONE UA (POCT) Negative Negative mg/dL [facility] LEUKOCYTES UA (POCT) Negative Negative [facility] NITRITE UA (POCT) Negative Negative [facility] PH UA (POCT) 6.0 4.5 - 8.0 [facility] Protein Ql (U) Negative Negative mg/dL [facility] SPECIFIC GRAVITY UA (POCT) 1.025 1.005 - 1.030 [facility] UROBILINOGEN UA (POCT) 0.2 E.U./dL Ashley l E.U./dL [facility] Laboratory - Chemistry and C hemistry - challengeOrdered By: Dr. Funk on 09-17-2022 Natriuretic peptide B (Bld) [Mass/Vol] 91.9 pg/mL 0-100 [facility] No Panel InformationOrdered By: Dr. Funk on 09-17-2022 91.9 pg/mL 0-100 [facility] Absolute lymphocyte countOrd ered By: ED PROVIDER on 09-02-2022 Lymphocytes Auto (Unsp spec) [#/Vol] 2.88 10*3/uL 0.83-4.51 [facility] Basophil percentageOrdered B y: ED PROVIDER on 09-02-2022 Basophil percentage 0-5 SEEN /hpf 0-5 [facility] Basophil percentage 98 mg/dL 74-106 [facility] Basophil percentage 7.1 g/dL 6.4-8.2 [facility] Basophil percentage 0.20 mg/dL 0.20-1.00 [facility] Basophil percentage 143 mmol/L 136-145 [facility] Basophil percentage 3.8 mmol/L 3.5-5.1 [facility] Basophil percentage 112 mmol/L 98-107 [facility] Basophils (Bld) [#/Vol] 8.8 10*3/uL 4.4-11.0 [facility] Basophils (Bld) [#/Vol] 4.9 10*3/uL 2.0-7.7 [facility] Basophils/100 WBC (Bld) 0.8 % 0-1 [facility] Basophils/100 WBC (Bld) 55.2 % 47-70 [facility] Basophils/100 WBC (Bld) 3.0 % 0-5 [facility] Basophil percentageOrdered B y: Dr. Williamson on 09-02-2022 Basophil percentage 0.8 mmol/L 0.4-2.0 [facility] Basophil percentageon 2021 Lactate [Moles/Vol] 0.8 mmol/L 0.4-2.0 [facility] Work Phone: Bilirubin [Mass/Vol] 0.20 mg/dL 0.20-1.00 [facility] Work Phone: Comment on above: For patients on eltr ombopag therapy, use of Dimension [place] TBIL is not recommended. Chloride [Moles/Vol] 112 mmol/L 98-107 [facility] Work Phone: Eosinophils/100 WBC (Bld) 3.0 % 0-5 [facility] Work Phone: Glucose [Mass/Vol] 98 mg/dL 74-106 [facility] Work Phone: Neutrophils (Bld) [#/Vol] 4.9 10*3/uL 2.0-7.7 [facility] Work Phone: Neutrophils/100 WBC (Bld) 55.2 % 47-70 [facility] Work Phone: Potassium [Moles/Vol] 3.8 mmol/L 3.5-5.1 [facility] Work Phone: Protein [Mass/Vol] 7.1 g/dL 6.4-8.2 [facility] Work Phone: Sodium [Moles/Vol] 143 mmol/L 136-145 [facility] Work Phone: WBC (Bld) [#/Vol] 8.8 10*3/uL 4.4-11.0 [facility] Work Phone: Bilirubin Test strip Ql (U)O rdered By: ED PROVIDER on 09-02-2022 Bilirubin Ql (U) Negative Negative [facility] Blood erythrocytes count (nu mber/volume)Ordered By: ED PROVIDER on 09-02-2022 RBC (Bld) [#/Vol] 4.30 10*6/uL 4.2-5.4 [facility] Blood hemoglobin measurement (mass/volume)Ordered By: ED PROVIDER on 09-02-2022 Hemoglobin (Bld) [Mass/Vol] 13.4 g/dL 12.0-15.0 [facility] Blood lymphocytes/100 leukoc ytesOrdered By: ED PROVIDER on 09-02-2022 Lymphocytes/100 WBC (Bld) 32.7 % 19-41 [facility] Blood monocytes/100 leukocyt esOrdered By: ED PROVIDER on 09-02-2022 Monocytes/100 WBC (Bld) 7.8 % 0-10 [facility] Blood platelet mean volumeOr dered By: ED PROVIDER on 09-02-2022 Platelet mean volume (Bld) [Entitic vol] 9.2 fL 6.2-12.0 [facility] Determination of erythrocyte mean corpuscular volume (MCV)Ordered By: ED PROVIDER on 09-02-2022 MCV (RBC) [Entitic vol] 96.3 fL 81-99 [facility] Hematocrit Auto (Bld) [Volum e fraction]Ordered By: ED PROVIDER on 09-02-2022 Hematocrit (Bld) [Volume fraction] 41.4 % 37-47 [facility] Ketones Test strip Ql (U)Ord ered By: ED PROVIDER on 09-02-2022 Ketones Ql (U) Negative Negative [facility] Laboratory - Chemistry and C hemistry - challengeon 09-02-2022 ALP [Catalytic activity/Vol] 124 U/L 45-117 [facility] Work Phone: ALT [Catalytic activity/Vol] 13 U/L 13-56 [facility] Work Phone: CO2 [Moles/Vol] 28.0 mmol/L 21.0-32.0 [facility] Work Phone: Globulin (S) [Mass/Vol] 3.5 g/dL 2.2-4.2 [facility] Work Phone: Urea nitrogen/Creatinine [Mass ratio] 18.7 mg/mg 10-20 [facility] Work Phone: Laboratory - Hematology and Cell countson 09-02-2022 Erythrocyte distribution width (RBC) [Entitic vol] 46.5 fL 35.1-43.9 [facility] Work Phone: Erythrocyte distribution width (RBC) [Ratio] 13.2 % 11.6-14.6 [facility] Work Phone: Immature granulocytes/100 WBC (Bld) 0.500 % 0.0-0.9 [facility] Work Phone: Comment on above: IG% - Immature Granu locytes (promyelocytes, myelocytes and metamyelocytes) > 1% indicates that a LEFT SHIFT is Present. MCH (RBC) [Entitic mass] 31.2 pg 27.0-32.0 [facility] Work Phone: Nucleated RBC/100 WBC (Bld) [Ratio] 0 % 0-5 [facility] Work Phone: MCHC Auto (RBC) [Mass/Vol]Or dered By: ED PROVIDER on 09-02-2022 MCHC (RBC) [Mass/Vol] 32.4 g/dL 32-36 [facility] Mucus LM Ql (Urine sed)Order ed By: ED PROVIDER on 09-02-2022 Mucus Ql (Urine sed) 0 SEEN /hpf [facility] Nitrite Test strip Ql (U)Ord ered By: ED PROVIDER on 09-02-2022 Nitrite Ql (U) Negative Negative [facility] No Panel Informationon 09-02 Estimated Creatinine Clearance Calc 70.01 ml/min [facility] Work Phone: Estimated GFR (MDRD) Amer 100 mL/min >60 [facility] Work Phone: Comment on above: GFR Calc Estimated GFR (MDRD) Non-Af Amer 83 mL/min >60 [facility] Work Phone: Comment on above: Non- GFR Calc No Panel InformationOrdered By: ED PROVIDER on 09-02-2022 31.2 pg 27.0-32.0 [facility] 13.2 % 11.6-14.6 [facility] 46.5 fl 35.1-43.9 [facility] 0.500 % 0.0-0.9 [facility] 0 % 0-5 [facility] 83 mL/min >60 [facility] 100 mL/min >60 [facility] 70.01 ml/min [facility] 18.7 RATIO 10-20 [facility] 3.5 g/dL 2.2-4.2 [facility] 124 U/L 45-117 [facility] 13 U/L 13-56 [facility] 28.0 mmol/L 21.0-32.0 [facility] Platelets bldOrdered By: ED PROVIDER on 09-02-2022 Platelets (Bld) [#/Vol] 259 10*3/uL 150-450 [facility] Protein Test strip Ql (U)Ord ered By: ED PROVIDER on 09-02-2022 Protein Ql (U) Negative Negative [facility] Serum or plasma albumin areli urement (mass/volume)Ordered By: ED PROVIDER on 09-02-2022 Albumin [Mass/Vol] 3.6 g/dL 3.2-5.0 [facility] Serum or plasma albumin/glob ulin mass ratioOrdered By: ED PROVIDER on 09-02-2022 Albumin/Globulin [Mass ratio] 1.0 {ratio} 0.9-2.4 [facility] Serum or plasma calcium areli urement (mass/volume)Ordered By: ED PROVIDER on 09-02-2022 Calcium [Mass/Vol] 9.2 mg/dL 8.5-10.1 [facility] Serum or plasma creatinine m easurement (mass/volume)Ordered By: ED PROVIDER on 09-02-2022 Creatinine [Mass/Vol] 0.75 mg/dL 0.55-1.02 [facility] Comment on above: The validity of the calculated GFR & GFRAA in patients over 70 years has not been determined. Clinical correlation is essential. Serum or plasma urea nitroge n measurement (mass/volume)Ordered By: ED PROVIDER on 09-02-2022 Urea nitrogen [Mass/Vol] 14 mg/dL 7-18 [facility] Squamous epithelial cells de tection in urine sediment by light microscopyOrdered By: ED PROVIDER on 09-02-2022 Epithelial cells.squamous LM Ql (Urine sed) 0-5 SEEN /hpf 5-10 [facility] Thin prep Papanicolaou smear with manual screeningOrdered By: ED PROVIDER on 09-02-2022 Thin prep Papanicolaou smear with manual screening 13 U/L 15-37 [facility] Thin prep Papanicolaou smear with manual screening 3 5-15 [facility] Urine blood detectionOrdered By: ED PROVIDER on 09-02-2022 RBC Ql (U) 25 /ul Negative [facility] RBC Ql (U) 0-5 SEEN /hpf 0-5 [facility] Urine clarityOrdered By: ED PROVIDER on 09-02-2022 Clarity (U) Sl. Cloudy Clear [facility] Urine color determinationOrd ered By: ED PROVIDER on 09-02-2022 Color (U) Yellow Yellow [facility] Urine glucose detectionOrder ed By: ED PROVIDER on 09-02-2022 Glucose Ql (U) Normal mg/dl Normal [facility] Urine leukocyte esterase det ection by dipstickOrdered By: ED PROVIDER on 09-02-2022 Leukocyte esterase Test strip Ql (U) 25 /ul Negative [facility] Urine pHOrdered By: ED PROVI ANDREAS on 09-02-2022 pH (U) 5.0 [pH] 5.0 - 8.0 [facility] Urine sediment bacteria coun t by microscopy (number/high power field)Ordered By: ED PROVIDER on 09-02-2022 Bacteria LM.HPF (Urine sed) [#/Area] 0 /[HPF] None Seen [facility] Urine specific gravity measu rementOrdered By: ED PROVIDER on 09-02-2022 Specific gravity (U) [Rel density] 1.020 1.002-1.03 0 [facility] Urobilinogen Auto test strip Ql (U)Ordered By: ED PROVIDER on 09-02-2022 Urobilinogen Ql (U) Normal mg/dl Normal [facility] Absolute lymphocyte countOrd ered By: Dr. Melendez on 08-30-2022 Lymphocytes Auto (Unsp spec) [#/Vol] 2.48 10*3/uL 0.83-4.51 [facility] Basophil percentageOrdered B y: Dr. Melendez on 08-30-2022 Basophil percentage 94 mg/dL 74-106 [facility] Basophil percentage 7.4 g/dL 6.4-8.2 [facility] Basophil percentage 0.30 mg/dL 0.20-1.00 [facility] Basophil percentage 140 mmol/L 136-145 [facility] Basophil percentage 3.7 mmol/L 3.5-5.1 [facility] Basophil percentage 106 mmol/L 98-107 [facility] Basophils (Bld) [#/Vol] 7.3 10*3/uL 4.4-11.0 [facility] Basophils (Bld) [#/Vol] 4.0 10*3/uL 2.0-7.7 [facility] Basophils/100 WBC (Bld) 1.1 % 0-1 [facility] Basophils/100 WBC (Bld) 53.8 % 47-70 [facility] Basophils/100 WBC (Bld) 3.0 % 0-5 [facility] Basophil percentageon 2021 Bilirubin [Mass/Vol] 0.30 mg/dL 0.20-1.00 [facility] Work Phone: Comment on above: For patients on eltr ombopag therapy, use of Dimension [place] TBIL is not recommended. Chloride [Moles/Vol] 106 mmol/L 98-107 [facility] Work Phone: [phone] Eosinophils/100 WBC (Bld) 3.0 % 0-5 [facility] Work Phone: Glucose [Mass/Vol] 94 mg/dL 74-106 [facility] Work Phone: Neutrophils (Bld) [#/Vol] 4.0 10*3/uL 2.0-7.7 [facility] Work Phone: Neutrophils/100 WBC (Bld) 53.8 % 47-70 [facility] Work Phone: Potassium [Moles/Vol] 3.7 mmol/L 3.5-5.1 [facility] Work Phone: Protein [Mass/Vol] 7.4 g/dL 6.4-8.2 [facility] Work Phone: Sodium [Moles/Vol] 140 mmol/L 136-145 [facility] Work Phone: WBC (Bld) [#/Vol] 7.3 10*3/uL 4.4-11.0 [facility] Work Phone: Blood erythrocytes count (nu mber/volume)Ordered By: Dr. Melendez on 08-30-2022 RBC (Bld) [#/Vol] 4.41 10*6/uL 4.2-5.4 [facility] Blood hemoglobin measurement (mass/volume)Ordered By: Dr. Melendez on 08-30-2022 Hemoglobin (Bld) [Mass/Vol] 14.1 g/dL 12.0-15.0 [facility] Blood lymphocytes/100 leukoc ytesOrdered By: Dr. Melendez on 08-30-2022 Lymphocytes/100 WBC (Bld) 33.8 % 19-41 [facility] Blood monocytes/100 leukocyt esOrdered By: Dr. Melendez on 08-30-2022 Monocytes/100 WBC (Bld) 7.9 % 0-10 [facility] Blood platelet mean volumeOr dered By: Dr. Melendez on 08-30-2022 Platelet mean volume (Bld) [Entitic vol] 9.6 fL 6.2-12.0 [facility] Determination of erythrocyte mean corpuscular volume (MCV)Ordered By: Dr. eMlendez on 08-30-2022 MCV (RBC) [Entitic vol] 96.1 fL 81-99 [facility] Hematocrit Auto (Bld) [Volum e fraction]Ordered By: Dr. Melendez on 08-30-2022 Hematocrit (Bld) [Volume fraction] 42.4 % 37-47 [facility] INR in Blood by Coagulation assayOrdered By: Dr. Melendez on 08-30-2022 INR Coag (Bld) [Relative time] 1.1 {INR} [facility] Laboratory - Chemistry and C hemistry - challengeon 08-30-2022 ALP [Catalytic activity/Vol] 134 U/L 45-117 [facility] Work Phone: ALT [Catalytic activity/Vol] 17 U/L 13-56 [facility] Work Phone: CO2 [Moles/Vol] 28.0 mmol/L 21.0-32.0 [facility] Work Phone: Globulin (S) [Mass/Vol] 3.8 g/dL 2.2-4.2 [facility] Work Phone: Lipase [Catalytic activity/Vol] 161 U/L 73-393 [facility] Work Phone: Urea nitrogen/Creatinine [Mass ratio] 19.1 mg/mg 10-20 [facility] Work Phone: Laboratory - Coagulationon 1 10-31-2021 aPTT Coag (Bld) [Time] 27.6 s 24.1-36.2 [facility] Work Phone: PT Coag (PPP) [Time] 13.4 s 11.7-14.9 [facility] Work Phone: Laboratory - Hematology and Cell countson 08-30-2022 Erythrocyte distribution width (RBC) [Entitic vol] 47.2 fL 35.1-43.9 [facility] Work Phone: Erythrocyte distribution width (RBC) [Ratio] 13.4 % 11.6-14.6 [facility] Work Phone: Immature granulocytes/100 WBC (Bld) 0.400 % 0.0-0.9 [facility] Work Phone: Comment on above: IG% - Immature Granu locytes (promyelocytes, myelocytes and metamyelocytes) > 1% indicates that a LEFT SHIFT is Present. MCH (RBC) [Entitic mass] 32.0 pg 27.0-32.0 [facility] Work Phone: Nucleated RBC/100 WBC (Bld) [Ratio] 0 % 0-5 [facility] Work Phone: MCHC Auto (RBC) [Mass/Vol]Or dered By: Dr. Melendez on 08-30-2022 MCHC (RBC) [Mass/Vol] 33.3 g/dL 32-36 [facility] No Panel Informationon 08-30 D-Dimer Quantitative (PE/DVT) 0.99 FEU/ug/m 0.27-0.49 [facility] Work Phone: Comment on above: RESULTS CALLED TO ED Eren HOLMAN RN 08/30/22 1450 Laura Hernandes.REPORT READ BACK BY SAME.D-Dimer ELEVATED (>0.49): Additional studies and clinicalassessments are indicated to conclude diagnosis of:Deep Vein Thrombosis (DVT) or Pulmonary Embolism (PE) Estimated Creatinine Clearance Calc 55.86 ml/min [facility] Work Phone: Estimated GFR (MDRD) Amer 77 mL/min >60 [facility] Work Phone: Comment on above: GFR Calc Estimated GFR (MDRD) Non-Af Amer 63 mL/min >60 [facility] Work Phone: Comment on above: Non- GFR Calc Troponin I High Sensitivity 21 pg/mL 3.0-54.0 [facility] Work Phone: Comment on above: Please Note: New Amanda t Units and Gender Specific Reference Ranges. For more information see Policy Stat Procedure [place] High Sensitivity Troponin (TNIH) and attachments. No Panel InformationOrdered By: Dr. Melendez on 08-30-2022 32.0 pg 27.0-32.0 [facility] 13.4 % 11.6-14.6 [facility] 47.2 fl 35.1-43.9 [facility] 0.400 % 0.0-0.9 [facility] 0 % 0-5 [facility] 13.4 SECONDS 11.7-14.9 [facility] 27.6 Seconds 24.1-36.2 [facility] 0.99 FEU/ug/m 0.27-0.49 [facility] 63 mL/min >60 [facility] 77 mL/min >60 [facility] 55.86 ml/min [facility] 19.1 RATIO 10-20 [facility] 3.8 g/dL 2.2-4.2 [facility] 161 U/L 73-393 [facility] 21 pg/mL 3.0-54.0 [facility] 134 U/L 45-117 [facility] 17 U/L 13-56 [facility] 28.0 mmol/L 21.0-32.0 [facility] Platelets bldOrdered By: Dr. Melendez on 08-30-2022 Platelets (Bld) [#/Vol] 290 10*3/uL 150-450 [facility] Serum or plasma albumin areli urement (mass/volume)Ordered By: Dr. Melendez on 08-30-2022 Albumin [Mass/Vol] 3.6 g/dL 3.2-5.0 [facility] Serum or plasma albumin/glob ulin mass ratioOrdered By: Dr. Melendez on 08-30-2022 Albumin/Globulin [Mass ratio] 0.9 {ratio} 0.9-2.4 [facility] Serum or plasma calcium areli urement (mass/volume)Ordered By: Dr. Melendez on 08-30-2022 Calcium [Mass/Vol] 9.4 mg/dL 8.5-10.1 [facility] Serum or plasma creatinine m easurement (mass/volume)Ordered By: Dr. Melendez on 08-30-2022 Creatinine [Mass/Vol] 0.94 mg/dL 0.55-1.02 [facility] Comment on above: The validity of the calculated GFR & GFRAA in patients over 70 years has not been determined. Clinical correlation is essential. Serum or plasma urea nitroge n measurement (mass/volume)Ordered By: Dr. Melendez on 08-30-2022 Urea nitrogen [Mass/Vol] 18 mg/dL 7-18 [facility] Thin prep Papanicolaou smear with manual screeningOrdered By: Dr. Melendez on 08-30-2022 Thin prep Papanicolaou smear with manual screening 13 U/L 15-37 [facility] Thin prep Papanicolaou smear with manual screening 6 5-15 [facility] Absolute lymphocyte countOrd ered By: Dr. Chambers on 08-23-2022 Lymphocytes Auto (Unsp spec) [#/Vol] 1.72 10*3/uL 0.83-4.51 [facility] Basophil percentageOrdered B y: Dr. Chambers on 08-23-2022 Basophil percentage 0 SEEN /hpf 0-5 [facility] Basophil percentage 102 mg/dL 74-106 [facility] Basophil percentage 140 mmol/L 136-145 [facility] Basophil percentage 3.9 mmol/L 3.5-5.1 [facility] Basophil percentage 106 mmol/L 98-107 [facility] Basophils (Bld) [#/Vol] 5.9 10*3/uL 4.4-11.0 [facility] Basophils (Bld) [#/Vol] 3.6 10*3/uL 2.0-7.7 [facility] Basophils/100 WBC (Bld) 0.8 % 0-1 [facility] Basophils/100 WBC (Bld) 61.5 % 47-70 [facility] Basophils/100 WBC (Bld) 1.7 % 0-5 [facility] Basophil percentageon 2021 Chloride [Moles/Vol] 106 mmol/L 98-107 [facility] Work Phone: Eosinophils/100 WBC (Bld) 1.7 % 0-5 [facility] Work Phone: Glucose [Mass/Vol] 102 mg/dL 74-106 [facility] Work Phone: Comment on above: Fasting Glucose resu lt from 100 to 125 mg/dL suggests IMPAIRED HOMEOSTASIS per A.D.A. criteria. Neutrophils (Bld) [#/Vol] 3.6 10*3/uL 2.0-7.7 [facility] Work Phone: Neutrophils/100 WBC (Bld) 61.5 % 47-70 [facility] Work Phone: Potassium [Moles/Vol] 3.9 mmol/L 3.5-5.1 [facility] Work Phone: Sodium [Moles/Vol] 140 mmol/L 136-145 [facility] Work Phone: WBC (Bld) [#/Vol] 5.9 10*3/uL 4.4-11.0 [facility] Work Phone: Bilirubin Test strip Ql (U)O rdered By: Dr. Chambers on 08-23-2022 Bilirubin Ql (U) Negative Negative [facility] Blood erythrocytes count (nu mber/volume)Ordered By: Dr. Chambers on 08-23-2022 RBC (Bld) [#/Vol] 4.50 10*6/uL 4.2-5.4 [facility] Blood hemoglobin measurement (mass/volume)Ordered By: Dr. Chambers on 08-23-2022 Hemoglobin (Bld) [Mass/Vol] 14.3 g/dL 12.0-15.0 [facility] Blood lymphocytes/100 leukoc ytesOrdered By: Dr. Chambers on 08-23-2022 Lymphocytes/100 WBC (Bld) 29.1 % 19-41 [facility] Blood monocytes/100 leukocyt esOrdered By: Dr. Chambers on 08-23-2022 Monocytes/100 WBC (Bld) 6.6 % 0-10 [facility] Blood platelet mean volumeOr dered By: Dr. Chambers on 08-23-2022 Platelet mean volume (Bld) [Entitic vol] 8.7 fL 6.2-12.0 [facility] Determination of erythrocyte mean corpuscular volume (MCV)Ordered By: Dr. Chambers on 08-23-2022 MCV (RBC) [Entitic vol] 95.3 fL 81-99 [facility] Hematocrit Auto (Bld) [Volum e fraction]Ordered By: Dr. Chambers on 08-23-2022 Hematocrit (Bld) [Volume fraction] 42.9 % 37-47 [facility] Ketones Test strip Ql (U)Ord ered By: Dr. Chambers on 08-23-2022 Ketones Ql (U) 5 mg/dl Negative [facility] Laboratory - Chemistry and C hemistry - challengeon 08-23-2022 CO2 [Moles/Vol] 30.0 mmol/L 21.0-32.0 [facility] Work Phone: Urea nitrogen/Creatinine [Mass ratio] 12.7 mg/mg 10-20 [facility] Work Phone: Laboratory - Hematology and Cell countson 08-23-2022 Erythrocyte distribution width (RBC) [Entitic vol] 44.5 fL 35.1-43.9 [facility] Work Phone: Erythrocyte distribution width (RBC) [Ratio] 13.1 % 11.6-14.6 [facility] Work Phone: Immature granulocytes/100 WBC (Bld) 0.300 % 0.0-0.9 [facility] Work Phone: Comment on above: IG% - Immature Granu locytes (promyelocytes, myelocytes and metamyelocytes) > 1% indicates that a LEFT SHIFT is Present. MCH (RBC) [Entitic mass] 31.8 pg 27.0-32.0 [facility] Work Phone: Nucleated RBC/100 WBC (Bld) [Ratio] 0 % 0-5 [facility] Work Phone: MCHC Auto (RBC) [Mass/Vol]Or dered By: Dr. Chambers on 08-23-2022 MCHC (RBC) [Mass/Vol] 33.3 g/dL 32-36 [facility] Mucus LM Ql (Urine sed)Order ed By: Dr. Chambers on 08-23-2022 Mucus Ql (Urine sed) 0 SEEN /hpf [facility] Nitrite Test strip Ql (U)Ord ered By: Dr. Chambers on 08-23-2022 Nitrite Ql (U) Negative Negative [facility] No Panel Informationon 08-23 Estimated Creatinine Clearance Calc 55.86 ml/min [facility] Work Phone: Estimated GFR (MDRD) Amer 76 mL/min >60 [facility] Work Phone: Comment on above: GFR Calc Estimated GFR (MDRD) Non-Af Amer 63 mL/min >60 [facility] Work Phone: Comment on above: Non- GFR Calc Troponin I High Sensitivity 17 pg/mL 3.0-54.0 [facility] Work Phone: Comment on above: Please Note: New Amanda t Units and Gender Specific Reference Ranges. For more information see Policy Stat Procedure [place] High Sensitivity Troponin (TNIH) and attachments. No Panel InformationOrdered By: Dr. Chambers on 08-23-2022 31.8 pg 27.0-32.0 [facility] 13.1 % 11.6-14.6 [facility] 44.5 fl 35.1-43.9 [facility] 0.300 % 0.0-0.9 [facility] 0 % 0-5 [facility] 63 mL/min >60 [facility] 76 mL/min >60 [facility] 55.86 ml/min [facility] 12.7 RATIO 10-20 [facility] 17 pg/mL 3.0-54.0 [facility] 30.0 mmol/L 21.0-32.0 [facility] Platelets bldOrdered By: Dr. Chambers on 08-23-2022 Platelets (Bld) [#/Vol] 338 10*3/uL 150-450 [facility] Protein Test strip Ql (U)Ord ered By: Dr. Chambers on 08-23-2022 Protein Ql (U) 15 mg/dl Negative [facility] Serum or plasma calcium areli urement (mass/volume)Ordered By: Dr. Chambers on 08-23-2022 Calcium [Mass/Vol] 9.7 mg/dL 8.5-10.1 [facility] Serum or plasma creatinine m easurement (mass/volume)Ordered By: Dr. Chambers on 08-23-2022 Creatinine [Mass/Vol] 0.94 mg/dL 0.55-1.02 [facility] Comment on above: The validity of the calculated GFR & GFRAA in patients over 70 years has not been determined. Clinical correlation is essential. Serum or plasma urea nitroge n measurement (mass/volume)Ordered By: Dr. Chambers on 08-23-2022 Urea nitrogen [Mass/Vol] 12 mg/dL 7-18 [facility] Squamous epithelial cells de tection in urine sediment by light microscopyOrdered By: Dr. Chambers on 08-23-2022 Epithelial cells.squamous LM Ql (Urine sed) 0-5 SEEN /hpf 5-10 [facility] Thin prep Papanicolaou smear with manual screeningOrdered By: Dr. Chambers on 08-23-2022 Thin prep Papanicolaou smear with manual screening 4 5-15 [facility] Urine blood detectionOrdered By: Dr. Chambers on 08-23-2022 RBC Ql (U) 10 /ul Negative [facility] RBC Ql (U) 0 SEEN /hpf 0-5 [facility] Urine clarityOrdered By: Dr. Chambers on 08-23-2022 Clarity (U) Clear Clear [facility] Urine color determinationOrd ered By: Dr. Chambers on 08-23-2022 Color (U) Yellow Yellow [facility] Urine glucose detectionOrder ed By: Dr. Chambers on 08-23-2022 Glucose Ql (U) Normal mg/dl Normal [facility] Urine leukocyte esterase det ection by dipstickOrdered By: Dr. Chambers on 08-23-2022 Leukocyte esterase Test strip Ql (U) 25 /ul Negative [facility] Urine pHOrdered By: Dr. Graham goodrich on 08-23-2022 pH (U) 7.0 [pH] 5.0 - 8.0 [facility] Urine sediment bacteria coun t by microscopy (number/high power field)Ordered By: Dr. Chambers on 08-23-2022 Bacteria LM.HPF (Urine sed) [#/Area] 0 /[HPF] None Seen [facility] Urine specific gravity measu rementOrdered By: Dr. Chambers on 08-23-2022 Specific gravity (U) [Rel density] 1.005 1.002-1.03 0 [facility] Urobilinogen Auto test strip Ql (U)Ordered By: Dr. Chambers on 08-23-2022 Urobilinogen Ql (U) Normal mg/dl Normal [facility] Absolute lymphocyte countOrd ered By: Dr. Chambers on 08-08-2022 Lymphocytes Auto (Unsp spec) [#/Vol] 2.39 10*3/uL 0.83-4.51 [facility] Basophil percentageOrdered B y: Dr. Chambers on 08-08-2022 Basophil percentage 113 mg/dL 74-106 [facility] Basophil percentage 7.0 g/dL 6.4-8.2 [facility] Basophil percentage 0.20 mg/dL 0.20-1.00 [facility] Basophil percentage 142 mmol/L 136-145 [facility] Basophil percentage 3.7 mmol/L 3.5-5.1 [facility] Basophil percentage 110 mmol/L 98-107 [facility] Basophils (Bld) [#/Vol] 8.6 10*3/uL 4.4-11.0 [facility] Basophils (Bld) [#/Vol] 5.4 10*3/uL 2.0-7.7 [facility] Basophils/100 WBC (Bld) 0.7 % 0-1 [facility] Basophils/100 WBC (Bld) 62.6 % 47-70 [facility] Basophils/100 WBC (Bld) 2.1 % 0-5 [facility] Basophil percentageon 2021 Bilirubin [Mass/Vol] 0.20 mg/dL 0.20-1.00 [facility] Work Phone: Comment on above: For patients on eltr ombopag therapy, use of Dimension [place] TBIL is not recommended. Chloride [Moles/Vol] 110 mmol/L 98-107 [facility] Work Phone: Eosinophils/100 WBC (Bld) 2.1 % 0-5 [facility] Work Phone: Glucose [Mass/Vol] 113 mg/dL 74-106 [facility] Work Phone: Comment on above: Fasting Glucose resu lt from 100 to 125 mg/dL suggests IMPAIRED HOMEOSTASIS per A.D.A. criteria. Neutrophils (Bld) [#/Vol] 5.4 10*3/uL 2.0-7.7 [facility] Work Phone: Neutrophils/100 WBC (Bld) 62.6 % 47-70 [facility] Work Phone: Potassium [Moles/Vol] 3.7 mmol/L 3.5-5.1 [facility] Work Phone: Protein [Mass/Vol] 7.0 g/dL 6.4-8.2 [facility] Work Phone: Sodium [Moles/Vol] 142 mmol/L 136-145 [facility] Work Phone: WBC (Bld) [#/Vol] 8.6 10*3/uL 4.4-11.0 [facility] Work Phone: [phone] Blood erythrocytes count (nu mber/volume)Ordered By: Dr. Chambers on 08-08-2022 RBC (Bld) [#/Vol] 4.30 10*6/uL 4.2-5.4 [facility] Blood hemoglobin measurement (mass/volume)Ordered By: Dr. Chambers on 08-08-2022 Hemoglobin (Bld) [Mass/Vol] 13.9 g/dL 12.0-15.0 [facility] Blood lymphocytes/100 leukoc ytesOrdered By: Dr. Chambers on 08-08-2022 Lymphocytes/100 WBC (Bld) 28.0 % 19-41 [facility] Blood monocytes/100 leukocyt esOrdered By: Dr. Chambers on 08-08-2022 Monocytes/100 WBC (Bld) 6.2 % 0-10 [facility] Blood platelet mean volumeOr dered By: Dr. Chambers on 08-08-2022 Platelet mean volume (Bld) [Entitic vol] 8.8 fL 6.2-12.0 [facility] Determination of erythrocyte mean corpuscular volume (MCV)Ordered By: Dr. Chambers on 08-08-2022 MCV (RBC) [Entitic vol] 95.6 fL 81-99 [facility] Hematocrit Auto (Bld) [Volum e fraction]Ordered By: Dr. Chambers on 08-08-2022 Hematocrit (Bld) [Volume fraction] 41.1 % 37-47 [facility] Laboratory - Chemistry and C hemistry - challengeon 08-08-2022 ALP [Catalytic activity/Vol] 126 U/L 45-117 [facility] Work Phone: ALT [Catalytic activity/Vol] 15 U/L 13-56 [facility] Work Phone: CO2 [Moles/Vol] 27.0 mmol/L 21.0-32.0 [facility] Work Phone: Globulin (S) [Mass/Vol] 3.7 g/dL 2.2-4.2 [facility] Work Phone: Lipase [Catalytic activity/Vol] 155 U/L 73-393 [facility] Work Phone: Urea nitrogen/Creatinine [Mass ratio] 18.3 mg/mg 10-20 [facility] Work Phone: Laboratory - Hematology and Cell countson 08-08-2022 Erythrocyte distribution width (RBC) [Entitic vol] 43.4 fL 35.1-43.9 [facility] Work Phone: Erythrocyte distribution width (RBC) [Ratio] 12.5 % 11.6-14.6 [facility] Work Phone: Immature granulocytes/100 WBC (Bld) 0.400 % 0.0-0.9 [facility] Work Phone: Comment on above: IG% - Immature Granu locytes (promyelocytes, myelocytes and metamyelocytes) > 1% indicates that a LEFT SHIFT is Present. MCH (RBC) [Entitic mass] 32.3 pg 27.0-32.0 [facility] Work Phone: Nucleated RBC/100 WBC (Bld) [Ratio] 0 % 0-5 [facility] Work Phone: MCHC Auto (RBC) [Mass/Vol]Or dered By: Dr. Chambers on 08-08-2022 MCHC (RBC) [Mass/Vol] 33.8 g/dL 32-36 [facility] No Panel Informationon 08-08 Estimated Creatinine Clearance Calc 64.03 ml/min [facility] Work Phone: Estimated GFR (MDRD) Amer 90 mL/min >60 [facility] Work Phone: Comment on above: GFR Calc Estimated GFR (MDRD) Non-Af Amer 74 mL/min >60 [facility] Work Phone: Comment on above: Non- GFR Calc No Panel InformationOrdered By: Dr. Chambers on 08-08-2022 32.3 pg 27.0-32.0 [facility] 12.5 % 11.6-14.6 [facility] 43.4 fl 35.1-43.9 [facility] 0.400 % 0.0-0.9 [facility] 0 % 0-5 [facility] 74 mL/min >60 [facility] 90 mL/min >60 [facility] 64.03 ml/min [facility] 18.3 RATIO 10-20 [facility] 3.7 g/dL 2.2-4.2 [facility] 155 U/L 73-393 [facility] 126 U/L 45-117 [facility] 15 U/L 13-56 [facility] 27.0 mmol/L 21.0-32.0 [facility] Platelets bldOrdered By: Dr. Chambesr on 08-08-2022 Platelets (Bld) [#/Vol] 232 10*3/uL 150-450 [facility] Serum or plasma albumin areli urement (mass/volume)Ordered By: Dr. Chambers on 08-08-2022 Albumin [Mass/Vol] 3.3 g/dL 3.2-5.0 [facility] Serum or plasma albumin/glob ulin mass ratioOrdered By: Dr. Chambers on 08-08-2022 Albumin/Globulin [Mass ratio] 0.9 {ratio} 0.9-2.4 [facility] Serum or plasma calcium areli urement (mass/volume)Ordered By: Dr. Chambers on 08-08-2022 Calcium [Mass/Vol] 9.3 mg/dL 8.5-10.1 [facility] Serum or plasma creatinine m easurement (mass/volume)Ordered By: Dr. Chambers on 08-08-2022 Creatinine [Mass/Vol] 0.82 mg/dL 0.55-1.02 [facility] Comment on above: The validity of the calculated GFR & GFRAA in patients over 70 years has not been determined. Clinical correlation is essential. Serum or plasma urea nitroge n measurement (mass/volume)Ordered By: Dr. Chambers on 08-08-2022 Urea nitrogen [Mass/Vol] 15 mg/dL 7-18 [facility] Thin prep Papanicolaou smear with manual screeningOrdered By: Dr. Chambers on 08-08-2022 Thin prep Papanicolaou smear with manual screening 10 U/L 15-37 [facility] Thin prep Papanicolaou smear with manual screening 5 5-15 [facility] Absolute lymphocyte countOrd ered By: Dr. Aguilera on 08-04-2022 Lymphocytes Auto (Unsp spec) [#/Vol] 2.95 10*3/uL 0.83-4.51 [facility] Basophil percentageOrdered B y: Dr. Aguilera on 08-04-2022 Basophil percentage 105 mg/dL 74-106 [facility] Basophil percentage 7.1 g/dL 6.4-8.2 [facility] Basophil percentage 0.40 mg/dL 0.20-1.00 [facility] Basophil percentage 141 mmol/L 136-145 [facility] Basophil percentage 3.7 mmol/L 3.5-5.1 [facility] Basophil percentage 106 mmol/L 98-107 [facility] Basophil percentage 0.9 mmol/L 0.4-2.0 [facility] Basophils (Bld) [#/Vol] 6.0 10*3/uL 4.4-11.0 [facility] Basophils (Bld) [#/Vol] 2.3 10*3/uL 2.0-7.7 [facility] Basophils/100 WBC (Bld) 0.8 % 0-1 [facility] Basophils/100 WBC (Bld) 38.8 % 47-70 [facility] Basophils/100 WBC (Bld) 3.7 % 0-5 [facility] Basophil percentageon 2021 Bilirubin [Mass/Vol] 0.40 mg/dL 0.20-1.00 [facility] Work Phone: Comment on above: For patients on eltr ombopag therapy, use of Dimension [place] TBIL is not recommended. Chloride [Moles/Vol] 106 mmol/L 98-107 [facility] Work Phone: Eosinophils/100 WBC (Bld) 3.7 % 0-5 [facility] Work Phone: Glucose [Mass/Vol] 105 mg/dL 74-106 [facility] Work Phone: Comment on above: Fasting Glucose resu lt from 100 to 125 mg/dL suggests IMPAIRED HOMEOSTASIS per A.D.A. criteria. Lactate [Moles/Vol] 0.9 mmol/L 0.4-2.0 [facility] Work Phone: Neutrophils (Bld) [#/Vol] 2.3 10*3/uL 2.0-7.7 [facility] Work Phone: Neutrophils/100 WBC (Bld) 38.8 % 47-70 [facility] Work Phone: Potassium [Moles/Vol] 3.7 mmol/L 3.5-5.1 [facility] Work Phone: Protein [Mass/Vol] 7.1 g/dL 6.4-8.2 [facility] Work Phone: Sodium [Moles/Vol] 141 mmol/L 136-145 [facility] Work Phone: WBC (Bld) [#/Vol] 6.0 10*3/uL 4.4-11.0 [facility] Work Phone: Blood erythrocytes count (nu mber/volume)Ordered By: Dr. Aguilera on 08-04-2022 RBC (Bld) [#/Vol] 4.63 10*6/uL 4.2-5.4 [facility] Blood hemoglobin measurement (mass/volume)Ordered By: Dr. Aguilera on 08-04-2022 Hemoglobin (Bld) [Mass/Vol] 14.6 g/dL 12.0-15.0 [facility] Blood lymphocytes/100 leukoc ytesOrdered By: Dr. Aguilera on 08-04-2022 Lymphocytes/100 WBC (Bld) 49.0 % 19-41 [facility] Blood monocytes/100 leukocyt esOrdered By: Dr. Aguilera on 08-04-2022 Monocytes/100 WBC (Bld) 7.5 % 0-10 [facility] Blood platelet mean volumeOr dered By: Dr. Aguilera on 08-04-2022 Platelet mean volume (Bld) [Entitic vol] 8.9 fL 6.2-12.0 [facility] Determination of erythrocyte mean corpuscular volume (MCV)Ordered By: Dr. Aguilera on 08-04-2022 MCV (RBC) [Entitic vol] 95.5 fL 81-99 [facility] Hematocrit Auto (Bld) [Volum e fraction]Ordered By: Dr. Aguilera on 08-04-2022 Hematocrit (Bld) [Volume fraction] 44.2 % 37-47 [facility] INR in Blood by Coagulation assayOrdered By: Dr. Aguilera on 08-04-2022 INR Coag (Bld) [Relative time] 1.1 {INR} [facility] Laboratory - Chemistry and C hemistry - challengeon 08-04-2022 ALP [Catalytic activity/Vol] 115 U/L 45-117 [facility] Work Phone: [phone] ALT [Catalytic activity/Vol] 14 U/L 13-56 [facility] Work Phone: CO2 [Moles/Vol] 29.0 mmol/L 21.0-32.0 [facility] Work Phone: Globulin (S) [Mass/Vol] 3.7 g/dL 2.2-4.2 [facility] Work Phone: Urea nitrogen/Creatinine [Mass ratio] 17.5 mg/mg 10-20 [facility] Work Phone: Laboratory - Coagulationon 1 10-04-2021 aPTT Coag (Bld) [Time] 28.9 s 24.1-36.2 [facility] Work Phone: [phone] PT Coag (PPP) [Time] 13.6 s 11.7-14.9 [facility] Work Phone: Laboratory - Hematology and Cell countson 08-04-2022 Erythrocyte distribution width (RBC) [Entitic vol] 44.2 fL 35.1-43.9 [facility] Work Phone: [phone] Erythrocyte distribution width (RBC) [Ratio] 12.6 % 11.6-14.6 [facility] Work Phone: Immature granulocytes/100 WBC (Bld) 0.200 % 0.0-0.9 [facility] Work Phone: Comment on above: IG% - Immature Granu locytes (promyelocytes, myelocytes and metamyelocytes) > 1% indicates that a LEFT SHIFT is Present. MCH (RBC) [Entitic mass] 31.5 pg 27.0-32.0 [facility] Work Phone: Nucleated RBC/100 WBC (Bld) [Ratio] 0 % 0-5 [facility] Work Phone: MCHC Auto (RBC) [Mass/Vol]Or dered By: Dr. Aguilera on 08-04-2022 MCHC (RBC) [Mass/Vol] 33.0 g/dL 32-36 [facility] Comment on above: Delta: 35.0 on 08/02 No Panel Informationon 08-04 Estimated Creatinine Clearance Calc 54.13 ml/min [facility] Work Phone: Estimated GFR (MDRD) Amer 74 mL/min >60 [facility] Work Phone: Comment on above: GFR Calc Estimated GFR (MDRD) Non-Af Amer 61 mL/min >60 [facility] Work Phone: Comment on above: Non- GFR Calc No Panel InformationOrdered By: Dr. Aguilera on 08-04-2022 31.5 pg 27.0-32.0 [facility] 12.6 % 11.6-14.6 [facility] 44.2 fl 35.1-43.9 [facility] 0.200 % 0.0-0.9 [facility] 0 % 0-5 [facility] 13.6 SECONDS 11.7-14.9 [facility] 28.9 Seconds 24.1-36.2 [facility] 61 mL/min >60 [facility] 74 mL/min >60 [facility] 54.13 ml/min [facility] 17.5 RATIO 10-20 [facility] 3.7 g/dL 2.2-4.2 [facility] 115 U/L 45-117 [facility] 14 U/L 13-56 [facility] 29.0 mmol/L 21.0-32.0 [facility] Platelets bldOrdered By: Dr. Aguilera on 08-04-2022 Platelets (Bld) [#/Vol] 249 10*3/uL 150-450 [facility] Serum or plasma albumin areli urement (mass/volume)Ordered By: Dr. Aguilera on 08-04-2022 Albumin [Mass/Vol] 3.4 g/dL 3.2-5.0 [facility] Serum or plasma albumin/glob ulin mass ratioOrdered By: Dr. Aguilera on 08-04-2022 Albumin/Globulin [Mass ratio] 0.9 {ratio} 0.9-2.4 [facility] Serum or plasma calcium areli urement (mass/volume)Ordered By: Dr. Aguilera on 08-04-2022 Calcium [Mass/Vol] 9.6 mg/dL 8.5-10.1 [facility] Serum or plasma creatinine m easurement (mass/volume)Ordered By: Dr. Aguilera on 08-04-2022 Creatinine [Mass/Vol] 0.97 mg/dL 0.55-1.02 [facility] Comment on above: The validity of the calculated GFR & GFRAA in patients over 70 years has not been determined. Clinical correlation is essential. Serum or plasma urea nitroge n measurement (mass/volume)Ordered By: Dr. Aguilera on 08-04-2022 Urea nitrogen [Mass/Vol] 17 mg/dL 7-18 [facility] Thin prep Papanicolaou smear with manual screeningOrdered By: Dr. Aguilera on 08-04-2022 Thin prep Papanicolaou smear with manual screening 10 U/L 15-37 [facility] Thin prep Papanicolaou smear with manual screening 6 5-15 [facility] Absolute lymphocyte countOrd ered By: ED PROVIDER on 08-02-2022 Lymphocytes Auto (Unsp spec) [#/Vol] 3.49 10*3/uL 0.83-4.51 [facility] Basophil percentageOrdered B y: ED PROVIDER on 08-02-2022 Basophil percentage 0-5 SEEN /hpf 0-5 [facility] Basophil percentage 93 mg/dL 74-106 [facility] Basophil percentage 139 mmol/L 136-145 [facility] Basophil percentage 3.5 mmol/L 3.5-5.1 [facility] Basophil percentage 105 mmol/L 98-107 [facility] Basophils (Bld) [#/Vol] 7.4 10*3/uL 4.4-11.0 [facility] Basophils (Bld) [#/Vol] 3.1 10*3/uL 2.0-7.7 [facility] Basophils/100 WBC (Bld) 0.9 % 0-1 [facility] Basophils/100 WBC (Bld) 42.3 % 47-70 [facility] Basophils/100 WBC (Bld) 3.0 % 0-5 [facility] Basophil percentageOrdered B y: Dr. Chu on 08-02-2022 Basophil percentage 8.1 g/dL 6.4-8.2 [facility] Basophil percentage 0.40 mg/dL 0.20-1.00 [facility] Basophil percentageon 2021 Bilirubin [Mass/Vol] 0.40 mg/dL 0.20-1.00 [facility] Work Phone: Comment on above: For patients on eltr ombopag therapy, use of Dimension [place] TBIL is not recommended. Chloride [Moles/Vol] 105 mmol/L 98-107 [facility] Work Phone: Eosinophils/100 WBC (Bld) 3.0 % 0-5 [facility] Work Phone: Glucose [Mass/Vol] 93 mg/dL 74-106 [facility] Work Phone: Neutrophils (Bld) [#/Vol] 3.1 10*3/uL 2.0-7.7 [facility] Work Phone: Neutrophils/100 WBC (Bld) 42.3 % 47-70 [facility] Work Phone: Potassium [Moles/Vol] 3.5 mmol/L 3.5-5.1 [facility] Work Phone: Protein [Mass/Vol] 8.1 g/dL 6.4-8.2 [facility] Work Phone: Sodium [Moles/Vol] 139 mmol/L 136-145 [facility] Work Phone: WBC (Bld) [#/Vol] 7.4 10*3/uL 4.4-11.0 [facility] Work Phone: Bilirubin Test strip Ql (U)O rdered By: ED PROVIDER on 08-02-2022 Bilirubin Ql (U) 1 mg/dL Negative [facility] Comment on above: YCOLOR OF URINE MAY AFFECT DIPSTICK RESULTS. Blood erythrocytes count (nu mber/volume)Ordered By: ED PROVIDER on 08-02-2022 RBC (Bld) [#/Vol] 4.75 10*6/uL 4.2-5.4 [facility] Blood hemoglobin measurement (mass/volume)Ordered By: ED PROVIDER on 08-02-2022 Hemoglobin (Bld) [Mass/Vol] 15.6 g/dL 12.0-15.0 [facility] Blood lymphocytes/100 leukoc ytesOrdered By: ED PROVIDER on 08-02-2022 Lymphocytes/100 WBC (Bld) 47.0 % 19-41 [facility] Blood monocytes/100 leukocyt esOrdered By: ED PROVIDER on 08-02-2022 Monocytes/100 WBC (Bld) 6.7 % 0-10 [facility] Blood platelet mean volumeOr dered By: ED PROVIDER on 08-02-2022 Platelet mean volume (Bld) [Entitic vol] 9.1 fL 6.2-12.0 [facility] Determination of erythrocyte mean corpuscular volume (MCV)Ordered By: ED PROVIDER on 08-02-2022 MCV (RBC) [Entitic vol] 93.9 fL 81-99 [facility] Direct bilirubinOrdered By: Dr. Chu on 08-02-2022 Bilirubin.direct [Mass/Vol] 0.13 mg/dL 0.00-0.30 [facility] Hematocrit Auto (Bld) [Volum e fraction]Ordered By: ED PROVIDER on 08-02-2022 Hematocrit (Bld) [Volume fraction] 44.6 % 37-47 [facility] Ketones Test strip Ql (U)Ord ered By: ED PROVIDER on 08-02-2022 Ketones Ql (U) 5 mg/dl Negative [facility] Laboratory - Chemistry and C hemistry - challengeon 08-02-2022 ALP [Catalytic activity/Vol] 129 U/L 45-117 [facility] Work Phone: ALT [Catalytic activity/Vol] 17 U/L 13-56 [facility] Work Phone: CO2 [Moles/Vol] 29.0 mmol/L 21.0-32.0 [facility] Work Phone: Globulin (S) [Mass/Vol] 4.2 g/dL 2.2-4.2 [facility] Work Phone: Lipase [Catalytic activity/Vol] 82 U/L 73-393 [facility] Work Phone: Urea nitrogen/Creatinine [Mass ratio] 14.4 mg/mg 10-20 [facility] Work Phone: Laboratory - Hematology and Cell countson 08-02-2022 Erythrocyte distribution width (RBC) [Entitic vol] 43.0 fL 35.1-43.9 [facility] Work Phone: Erythrocyte distribution width (RBC) [Ratio] 12.4 % 11.6-14.6 [facility] Work Phone: [phone] Immature granulocytes/100 WBC (Bld) 0.100 % 0.0-0.9 [facility] Work Phone: Comment on above: IG% - Immature Granu locytes (promyelocytes, myelocytes and metamyelocytes) > 1% indicates that a LEFT SHIFT is Present. MCH (RBC) [Entitic mass] 32.8 pg 27.0-32.0 [facility] Work Phone: Nucleated RBC/100 WBC (Bld) [Ratio] 0 % 0-5 [facility] Work Phone: MCHC Auto (RBC) [Mass/Vol]Or dered By: ED PROVIDER on 08-02-2022 MCHC (RBC) [Mass/Vol] 35.0 g/dL 32-36 [facility] Mucus LM Ql (Urine sed)Order ed By: ED PROVIDER on 08-02-2022 Mucus Ql (Urine sed) 2+ /hpf [facility] Nitrite Test strip Ql (U)Ord ered By: ED PROVIDER on 08-02-2022 Nitrite Ql (U) Negative Negative [facility] No Panel Informationon 08-02 Estimated Creatinine Clearance Calc 54.13 ml/min [facility] Work Phone: Estimated GFR (MDRD) Amer 74 mL/min >60 [facility] Work Phone: Comment on above: GFR Calc Estimated GFR (MDRD) Non-Af Amer 61 mL/min >60 [facility] Work Phone: Comment on above: Non- GFR Calc No Panel InformationOrdered By: ED PROVIDER on 08-02-2022 32.8 pg 27.0-32.0 [facility] 12.4 % 11.6-14.6 [facility] 43.0 fl 35.1-43.9 [facility] 0.100 % 0.0-0.9 [facility] 0 % 0-5 [facility] 61 mL/min >60 [facility] 74 mL/min >60 [facility] 54.13 ml/min [facility] 14.4 RATIO 10-20 [facility] 29.0 mmol/L 21.0-32.0 [facility] No Panel InformationOrdered By: Dr. Chu on 08-02-2022 4.2 g/dL 2.2-4.2 [facility] 82 U/L 73-393 [facility] 129 U/L 45-117 [facility] 17 U/L 13-56 [facility] Platelets bldOrdered By: ED PROVIDER on 08-02-2022 Platelets (Bld) [#/Vol] 317 10*3/uL 150-450 [facility] Protein Test strip Ql (U)Ord ered By: ED PROVIDER on 08-02-2022 Protein Ql (U) 30 mg/dl Negative [facility] Serum or plasma albumin areli urement (mass/volume)Ordered By: Dr. Chu on 08-02-2022 Albumin [Mass/Vol] 3.9 g/dL 3.2-5.0 [facility] Serum or plasma calcium areli urement (mass/volume)Ordered By: ED PROVIDER on 08-02-2022 Calcium [Mass/Vol] 9.8 mg/dL 8.5-10.1 [facility] Serum or plasma creatinine m easurement (mass/volume)Ordered By: ED PROVIDER on 08-02-2022 Creatinine [Mass/Vol] 0.97 mg/dL 0.55-1.02 [facility] Comment on above: The validity of the calculated GFR & GFRAA in patients over 70 years has not been determined. Clinical correlation is essential. Serum or plasma urea nitroge n measurement (mass/volume)Ordered By: ED PROVIDER on 08-02-2022 Urea nitrogen [Mass/Vol] 14 mg/dL 7-18 [facility] Squamous epithelial cells de tection in urine sediment by light microscopyOrdered By: ED PROVIDER on 08-02-2022 Epithelial cells.squamous LM Ql (Urine sed) 0-5 SEEN /hpf 5-10 [facility] Thin prep Papanicolaou smear with manual screeningOrdered By: Dr. Chu on 08-02-2022 Thin prep Papanicolaou smear with manual screening 13 U/L 15-37 [facility] Thin prep Papanicolaou smear with manual screeningOrdered By: ED PROVIDER on 08-02-2022 Thin prep Papanicolaou smear with manual screening 5 5-15 [facility] Urine blood detectionOrdered By: ED PROVIDER on 08-02-2022 RBC Ql (U) 10 /ul Negative [facility] RBC Ql (U) 0 SEEN /hpf 0-5 [facility] Urine clarityOrdered By: ED PROVIDER on 08-02-2022 Clarity (U) Clear Clear [facility] Urine color determinationOrd ered By: ED PROVIDER on 08-02-2022 Color (U) Yellow Yellow [facility] Urine glucose detectionOrder ed By: ED PROVIDER on 08-02-2022 Glucose Ql (U) Normal mg/dl Normal [facility] Urine leukocyte esterase det ection by dipstickOrdered By: ED PROVIDER on 08-02-2022 Leukocyte esterase Test strip Ql (U) 25 /ul Negative [facility] Urine pHOrdered By: ED PROVI ANDREAS on 08-02-2022 pH (U) 5.0 [pH] 5.0 - 8.0 [facility] Urine sediment bacteria coun t by microscopy (number/high power field)Ordered By: ED PROVIDER on 08-02-2022 Bacteria LM.HPF (Urine sed) [#/Area] 0 /[HPF] None Seen [facility] Urine specific gravity measu rementOrdered By: ED PROVIDER on 08-02-2022 Specific gravity (U) [Rel density] 1.030 1.002-1.03 0 [facility] Urobilinogen Auto test strip Ql (U)Ordered By: ED PROVIDER on 08-02-2022 Urobilinogen Ql (U) Normal mg/dl Normal [facility] Absolute lymphocyte countOrd ered By: Dr. Reyes on 06-29-2022 Lymphocytes Auto (Unsp spec) [#/Vol] 2.61 10*3/uL 0.83-4.51 [facility] Basophil percentageOrdered B y: Dr. Reyes on 06-29-2022 Basophil percentage 107 mg/dL 74-106 [facility] Basophil percentage 141 mmol/L 136-145 [facility] Basophil percentage 4.2 mmol/L 3.5-5.1 [facility] Basophil percentage 108 mmol/L 98-107 [facility] Basophils (Bld) [#/Vol] 6.9 10*3/uL 4.4-11.0 [facility] Basophils (Bld) [#/Vol] 3.4 10*3/uL 2.0-7.7 [facility] Basophils/100 WBC (Bld) 1.0 % 0-1 [facility] Basophils/100 WBC (Bld) 49.3 % 47-70 [facility] Basophils/100 WBC (Bld) 3.9 % 0-5 [facility] Basophil percentageon 2021 Chloride [Moles/Vol] 108 mmol/L 98-107 [facility] Work Phone: Eosinophils/100 WBC (Bld) 3.9 % 0-5 [facility] Work Phone: Glucose [Mass/Vol] 107 mg/dL 74-106 [facility] Work Phone: Comment on above: Fasting Glucose resu lt from 100 to 125 mg/dL suggests IMPAIRED HOMEOSTASIS per A.D.A. criteria. Neutrophils (Bld) [#/Vol] 3.4 10*3/uL 2.0-7.7 [facility] Work Phone: Neutrophils/100 WBC (Bld) 49.3 % 47-70 [facility] Work Phone: Potassium [Moles/Vol] 4.2 mmol/L 3.5-5.1 [facility] Work Phone: Sodium [Moles/Vol] 141 mmol/L 136-145 [facility] Work Phone: WBC (Bld) [#/Vol] 6.9 10*3/uL 4.4-11.0 [facility] Work Phone: Blood erythrocytes count (nu mber/volume)Ordered By: Dr. Reyes on 06-29-2022 RBC (Bld) [#/Vol] 4.68 10*6/uL 4.2-5.4 [facility] Blood hemoglobin measurement (mass/volume)Ordered By: Dr. Reyes on 06-29-2022 Hemoglobin (Bld) [Mass/Vol] 15.0 g/dL 12.0-15.0 [facility] Blood lymphocytes/100 leukoc ytesOrdered By: Dr. Reyes on 06-29-2022 Lymphocytes/100 WBC (Bld) 38.0 % 19-41 [facility] Blood monocytes/100 leukocyt esOrdered By: Dr. Reyes on 06-29-2022 Monocytes/100 WBC (Bld) 7.4 % 0-10 [facility] Blood platelet mean volumeOr dered By: Dr. Reyes on 06-29-2022 Platelet mean volume (Bld) [Entitic vol] 8.9 fL 6.2-12.0 [facility] Determination of erythrocyte mean corpuscular volume (MCV)Ordered By: Dr. Reyes on 06-29-2022 MCV (RBC) [Entitic vol] 95.1 fL 81-99 [facility] Hematocrit Auto (Bld) [Volum e fraction]Ordered By: Dr. Reyes on 06-29-2022 Hematocrit (Bld) [Volume fraction] 44.5 % 37-47 [facility] Laboratory - Chemistry and C hemistry - challengeon 06-29-2022 CO2 [Moles/Vol] 29.0 mmol/L 21.0-32.0 [facility] Work Phone: Urea nitrogen/Creatinine [Mass ratio] 16.3 mg/mg 10-20 [facility] Work Phone: Laboratory - Hematology and Cell countson 06-29-2022 Erythrocyte distribution width (RBC) [Entitic vol] 44.4 fL 35.1-43.9 [facility] Work Phone: Erythrocyte distribution width (RBC) [Ratio] 12.9 % 11.6-14.6 [facility] Work Phone: Immature granulocytes/100 WBC (Bld) 0.400 % 0.0-0.9 [facility] Work Phone: Comment on above: IG% - Immature Granu locytes (promyelocytes, myelocytes and metamyelocytes) > 1% indicates that a LEFT SHIFT is Present. MCH (RBC) [Entitic mass] 32.1 pg 27.0-32.0 [facility] Work Phone: Nucleated RBC/100 WBC (Bld) [Ratio] 0 % 0-5 [facility] Work Phone: MCHC Auto (RBC) [Mass/Vol]Or dered By: Dr. Reyes on 06-29-2022 MCHC (RBC) [Mass/Vol] 33.7 g/dL 32-36 [facility] No Panel Informationon 06-29 Estimated Creatinine Clearance Calc 57.07 ml/min [facility] Work Phone: Estimated GFR (MDRD) Amer 79 mL/min >60 [facility] Work Phone: Comment on above: GFR Calc Estimated GFR (MDRD) Non-Af Amer 65 mL/min >60 [facility] Work Phone: Comment on above: Non- GFR Calc Troponin I High Sensitivity 21 pg/mL 3.0-54.0 [facility] Work Phone: Comment on above: Please Note: New Amanda t Units and Gender Specific Reference Ranges. For more information see Policy Stat Procedure [place] High Sensitivity Troponin (TNIH) and attachments. No Panel InformationOrdered By: Dr. Reyes on 06-29-2022 32.1 pg 27.0-32.0 [facility] 12.9 % 11.6-14.6 [facility] 44.4 fl 35.1-43.9 [facility] 0.400 % 0.0-0.9 [facility] 0 % 0-5 [facility] 65 mL/min >60 [facility] 79 mL/min >60 [facility] 57.07 ml/min [facility] 16.3 RATIO 10-20 [facility] 21 pg/mL 3.0-54.0 [facility] 29.0 mmol/L 21.0-32.0 [facility] Platelets bldOrdered By: Dr. Reyes on 06-29-2022 Platelets (Bld) [#/Vol] 295 10*3/uL 150-450 [facility] Serum or plasma calcium areli urement (mass/volume)Ordered By: Dr. Reyes on 06-29-2022 Calcium [Mass/Vol] 9.5 mg/dL 8.5-10.1 [facility] Serum or plasma creatinine m easurement (mass/volume)Ordered By: Dr. Reyes on 06-29-2022 Creatinine [Mass/Vol] 0.92 mg/dL 0.55-1.02 [facility] Comment on above: The validity of the calculated GFR & GFRAA in patients over 70 years has not been determined. Clinical correlation is essential. Serum or plasma urea nitroge n measurement (mass/volume)Ordered By: Dr. Reyes on 06-29-2022 Urea nitrogen [Mass/Vol] 15 mg/dL 7-18 [facility] Thin prep Papanicolaou smear with manual screeningOrdered By: Dr. Reyes on 06-29-2022 Thin prep Papanicolaou smear with manual screening 4 5-15 [facility] Throat Streptococcus pyogene s antigen detection by immunofluorescenceOrdered By: Dr. Chu on 06-11-2022 S. pyogenes Ag IF Ql (Throat) [facility] Absolute lymphocyte countOrd ered By: Dr. Chu on 06-09-2022 Lymphocytes Auto (Unsp spec) [#/Vol] 2.97 10*3/uL 0.83-4.51 [facility] Basophil percentageOrdered B y: Dr. Chu on 06-09-2022 Basophil percentage 104 mg/dL 74-106 [facility] Basophil percentage 144 mmol/L 136-145 [facility] Basophil percentage 3.7 mmol/L 3.5-5.1 [facility] Basophil percentage 110 mmol/L 98-107 [facility] Basophils (Bld) [#/Vol] 7.7 10*3/uL 4.4-11.0 [facility] Basophils (Bld) [#/Vol] 3.8 10*3/uL 2.0-7.7 [facility] Basophils/100 WBC (Bld) 0.8 % 0-1 [facility] Basophils/100 WBC (Bld) 48.6 % 47-70 [facility] Basophils/100 WBC (Bld) 4.4 % 0-5 [facility] Basophil percentageon 2021 Chloride [Moles/Vol] 110 mmol/L 98-107 [facility] Work Phone: Eosinophils/100 WBC (Bld) 4.4 % 0-5 [facility] Work Phone: Glucose [Mass/Vol] 104 mg/dL 74-106 [facility] Work Phone: Comment on above: Fasting Glucose resu lt from 100 to 125 mg/dL suggests IMPAIRED HOMEOSTASIS per A.D.A. criteria. Neutrophils (Bld) [#/Vol] 3.8 10*3/uL 2.0-7.7 [facility] Work Phone: Neutrophils/100 WBC (Bld) 48.6 % 47-70 [facility] Work Phone: Potassium [Moles/Vol] 3.7 mmol/L 3.5-5.1 [facility] Work Phone: Sodium [Moles/Vol] 144 mmol/L 136-145 [facility] Work Phone: WBC (Bld) [#/Vol] 7.7 10*3/uL 4.4-11.0 [facility] Work Phone: Blood erythrocytes count (nu mber/volume)Ordered By: Dr. Chu on 06-09-2022 RBC (Bld) [#/Vol] 4.43 10*6/uL 4.2-5.4 [facility] Blood hemoglobin measurement (mass/volume)Ordered By: Dr. Chu on 06-09-2022 Hemoglobin (Bld) [Mass/Vol] 14.5 g/dL 12.0-15.0 [facility] Blood lymphocytes/100 leukoc ytesOrdered By: Dr. Chu on 06-09-2022 Lymphocytes/100 WBC (Bld) 38.5 % 19-41 [facility] Blood monocytes/100 leukocyt esOrdered By: Dr. Chu on 06-09-2022 Monocytes/100 WBC (Bld) 7.3 % 0-10 [facility] Blood platelet mean volumeOr dered By: Dr. Chu on 06-09-2022 Platelet mean volume (Bld) [Entitic vol] 9.2 fL 6.2-12.0 [facility] COVID-19 virus antigen assay Ordered By: Dr. Chu on 06-09-2022 SARS-CoV-2 (COVID-19) Ag IA.rapid Ql (Resp) [facility] Determination of erythrocyte mean corpuscular volume (MCV)Ordered By: Dr. Chu on 06-09-2022 MCV (RBC) [Entitic vol] 96.8 fL 81-99 [facility] Hematocrit Auto (Bld) [Volum e fraction]Ordered By: Dr. Chu on 06-09-2022 Hematocrit (Bld) [Volume fraction] 42.9 % 37-47 [facility] Laboratory - Chemistry and C hemistry - challengeon 06-09-2022 CO2 [Moles/Vol] 29.0 mmol/L 21.0-32.0 [facility] Work Phone: Urea nitrogen/Creatinine [Mass ratio] 19.4 mg/mg 10-20 [facility] Work Phone: Laboratory - Hematology and Cell countson 06-09-2022 Erythrocyte distribution width (RBC) [Entitic vol] 47.8 fL 35.1-43.9 [facility] Work Phone: Erythrocyte distribution width (RBC) [Ratio] 13.3 % 11.6-14.6 [facility] Work Phone: Immature granulocytes/100 WBC (Bld) 0.400 % 0.0-0.9 [facility] Work Phone: Comment on above: IG% - Immature Granu locytes (promyelocytes, myelocytes and metamyelocytes) > 1% indicates that a LEFT SHIFT is Present. MCH (RBC) [Entitic mass] 32.7 pg 27.0-32.0 [facility] Work Phone: Nucleated RBC/100 WBC (Bld) [Ratio] 0 % 0-5 [facility] Work Phone: MCHC Auto (RBC) [Mass/Vol]Or dered By: Dr. Chu on 06-09-2022 MCHC (RBC) [Mass/Vol] 33.8 g/dL 32-36 [facility] No Panel Informationon 06-09 Estimated Creatinine Clearance Calc 50.98 ml/min [facility] Work Phone: Estimated GFR (MDRD) Amer 69 mL/min >60 [facility] Work Phone: Comment on above: GFR Calc Estimated GFR (MDRD) Non-Af Amer 57 mL/min >60 [facility] Work Phone: Comment on above: Non- GFR Calc Troponin I High Sensitivity 22 pg/mL 3.0-54.0 [facility] Work Phone: Comment on above: Please Note: New Amanda t Units and Gender Specific Reference Ranges. For more information see Policy Stat Procedure [place] High Sensitivity Troponin (TNIH) and attachments. No Panel InformationOrdered By: Dr. Chu on 10-03-2022 32.7 pg 27.0-32.0 [facility] 13.3 % 11.6-14.6 [facility] 47.8 fl 35.1-43.9 [facility] 0.400 % 0.0-0.9 [facility] 0 % 0-5 [facility] 57 mL/min >60 [facility] 69 mL/min >60 [facility] 50.98 ml/min [facility] 19.4 RATIO 10-20 [facility] 22 pg/mL 3.0-54.0 [facility] 29.0 mmol/L 21.0-32.0 [facility] Platelets bldOrdered By: Dr. Chu on 06-09-2022 Platelets (Bld) [#/Vol] 217 10*3/uL 150-450 [facility] Serum or plasma calcium areli urement (mass/volume)Ordered By: Dr. Chu on 06-09-2022 Calcium [Mass/Vol] 9.2 mg/dL 8.5-10.1 [facility] Serum or plasma creatinine m easurement (mass/volume)Ordered By: Dr. Chu on 06-09-2022 Creatinine [Mass/Vol] 1.03 mg/dL 0.55-1.02 [facility] Comment on above: The validity of the calculated GFR & GFRAA in patients over 70 years has not been determined. Clinical correlation is essential. Serum or plasma urea nitroge n measurement (mass/volume)Ordered By: Dr. Chu on 06-09-2022 Urea nitrogen [Mass/Vol] 20 mg/dL 7-18 [facility] Thin prep Papanicolaou smear with manual screeningOrdered By: Dr. Chu on 06-09-2022 Thin prep Papanicolaou smear with manual screening 5 5-15 [facility] Absolute lymphocyte countOrd ered By: Dr. Williamson on 06-04-2022 Lymphocytes Auto (Unsp spec) [#/Vol] 1.78 10*3/uL 0.83-4.51 [facility] Basophil percentageOrdered B y: Dr. Williamson on 06-04-2022 Basophil percentage 0 SEEN /hpf 0-5 [facility] Basophil percentage 102 mg/dL 74-106 [facility] Basophil percentage 142 mmol/L 136-145 [facility] Basophil percentage 3.7 mmol/L 3.5-5.1 [facility] Basophil percentage 108 mmol/L 98-107 [facility] Basophils (Bld) [#/Vol] 7.0 10*3/uL 4.4-11.0 [facility] Basophils (Bld) [#/Vol] 4.5 10*3/uL 2.0-7.7 [facility] Basophils/100 WBC (Bld) 0.9 % 0-1 [facility] Basophils/100 WBC (Bld) 64.7 % 47-70 [facility] Basophils/100 WBC (Bld) 3.0 % 0-5 [facility] Basophil percentageon 2021 Chloride [Moles/Vol] 108 mmol/L 98-107 [facility] Work Phone: Eosinophils/100 WBC (Bld) 3.0 % 0-5 [facility] Work Phone: Glucose [Mass/Vol] 102 mg/dL 74-106 [facility] Work Phone: Comment on above: Fasting Glucose resu lt from 100 to 125 mg/dL suggests IMPAIRED HOMEOSTASIS per A.D.A. criteria. Neutrophils (Bld) [#/Vol] 4.5 10*3/uL 2.0-7.7 [facility] Work Phone: Neutrophils/100 WBC (Bld) 64.7 % 47-70 [facility] Work Phone: Potassium [Moles/Vol] 3.7 mmol/L 3.5-5.1 [facility] Work Phone: Sodium [Moles/Vol] 142 mmol/L 136-145 [facility] Work Phone: [phone] WBC (Bld) [#/Vol] 7.0 10*3/uL 4.4-11.0 [facility] Work Phone: Bilirubin Test strip Ql (U)O rdered By: Dr. Williamson on 06-04-2022 Bilirubin Ql (U) Negative Negative [facility] Blood erythrocytes count (nu mber/volume)Ordered By: Dr. Williamson on 06-04-2022 RBC (Bld) [#/Vol] 4.55 10*6/uL 4.2-5.4 [facility] Blood hemoglobin measurement (mass/volume)Ordered By: Dr. Williamson on 06-04-2022 Hemoglobin (Bld) [Mass/Vol] 14.5 g/dL 12.0-15.0 [facility] Blood lymphocytes/100 leukoc ytesOrdered By: Dr. Williamson on 06-04-2022 Lymphocytes/100 WBC (Bld) 25.4 % 19-41 [facility] Blood monocytes/100 leukocyt esOrdered By: Dr. Williamson on 06-04-2022 Monocytes/100 WBC (Bld) 5.7 % 0-10 [facility] Blood platelet mean volumeOr dered By: Dr. Williamson on 06-04-2022 Platelet mean volume (Bld) [Entitic vol] 9.0 fL 6.2-12.0 [facility] Determination of erythrocyte mean corpuscular volume (MCV)Ordered By: Dr. Williamson on 06-04-2022 MCV (RBC) [Entitic vol] 94.5 fL 81-99 [facility] Hematocrit Auto (Bld) [Volum e fraction]Ordered By: Dr. Williamson on 06-04-2022 Hematocrit (Bld) [Volume fraction] 43.0 % 37-47 [facility] Ketones Test strip Ql (U)Ord ered By: Dr. Williamson on 06-04-2022 Ketones Ql (U) Negative Negative [facility] Laboratory - Chemistry and C hemistry - challengeon 06-04-2022 CO2 [Moles/Vol] 29.0 mmol/L 21.0-32.0 [facility] Work Phone: Urea nitrogen/Creatinine [Mass ratio] 16.5 mg/mg 10-20 [facility] Work Phone: Laboratory - Hematology and Cell countson 06-04-2022 Erythrocyte distribution width (RBC) [Entitic vol] 45.8 fL 35.1-43.9 [facility] Work Phone: Erythrocyte distribution width (RBC) [Ratio] 13.2 % 11.6-14.6 [facility] Work Phone: Immature granulocytes/100 WBC (Bld) 0.300 % 0.0-0.9 [facility] Work Phone: Comment on above: IG% - Immature Granu locytes (promyelocytes, myelocytes and metamyelocytes) > 1% indicates that a LEFT SHIFT is Present. MCH (RBC) [Entitic mass] 31.9 pg 27.0-32.0 [facility] Work Phone: Nucleated RBC/100 WBC (Bld) [Ratio] 0 % 0-5 [facility] Work Phone: MCHC Auto (RBC) [Mass/Vol]Or dered By: Dr. Williamson on 06-04-2022 MCHC (RBC) [Mass/Vol] 33.7 g/dL 32-36 [facility] Mucus LM Ql (Urine sed)Order ed By: Dr. Williamson on 06-04-2022 Mucus Ql (Urine sed) 0 SEEN /hpf [facility] Nitrite Test strip Ql (U)Ord ered By: Dr. Williamson on 06-04-2022 Nitrite Ql (U) Negative Negative [facility] No Panel Informationon 06-04 Estimated Creatinine Clearance Calc 57.70 ml/min [facility] Work Phone: Estimated GFR (MDRD) Amer 80 mL/min >60 [facility] Work Phone: Comment on above: GFR Calc Estimated GFR (MDRD) Non-Af Amer 66 mL/min >60 [facility] Work Phone: Comment on above: Non- GFR Calc Troponin I High Sensitivity 24 pg/mL 3.0-54.0 [facility] Work Phone: Comment on above: Please Note: New Amanda t Units and Gender Specific Reference Ranges. For more information see Policy Stat Procedure [place] High Sensitivity Troponin (TNIH) and attachments. No Panel InformationOrdered By: Dr. Williamson on 06-04-2022 31.9 pg 27.0-32.0 [facility] 13.2 % 11.6-14.6 [facility] 45.8 fl 35.1-43.9 [facility] 0.300 % 0.0-0.9 [facility] 0 % 0-5 [facility] 66 mL/min >60 [facility] 80 mL/min >60 [facility] 57.70 ml/min [facility] 16.5 RATIO 10-20 [facility] [facility] 24 pg/mL 3.0-54.0 [facility] 29.0 mmol/L 21.0-32.0 [facility] Platelets bldOrdered By: Dr. Williamson on 06-04-2022 Platelets (Bld) [#/Vol] 247 10*3/uL 150-450 [facility] Protein Test strip Ql (U)Ord ered By: Dr. Williamson on 06-04-2022 Protein Ql (U) Negative Negative [facility] Serum or plasma calcium areli urement (mass/volume)Ordered By: Dr. Williamson on 06-04-2022 Calcium [Mass/Vol] 9.4 mg/dL 8.5-10.1 [facility] Serum or plasma creatinine m easurement (mass/volume)Ordered By: Dr. Williamson on 06-04-2022 Creatinine [Mass/Vol] 0.91 mg/dL 0.55-1.02 [facility] Comment on above: The validity of the calculated GFR & GFRAA in patients over 70 years has not been determined. Clinical correlation is essential. Serum or plasma urea nitroge n measurement (mass/volume)Ordered By: Dr. Williamson on 06-04-2022 Urea nitrogen [Mass/Vol] 15 mg/dL 7-18 [facility] Squamous epithelial cells de tection in urine sediment by light microscopyOrdered By: Dr. Williamson on 06-04-2022 Epithelial cells.squamous LM Ql (Urine sed) 0-5 SEEN /hpf 5-10 [facility] Thin prep Papanicolaou smear with manual screeningOrdered By: Dr. Williamson on 06-04-2022 Thin prep Papanicolaou smear with manual screening 5 5-15 [facility] Urine blood detectionOrdered By: Dr. Williamson on 06-04-2022 RBC Ql (U) 25 /ul Negative [facility] RBC Ql (U) 0-5 SEEN /hpf 0-5 [facility] Urine clarityOrdered By: Dr. Williamson on 06-04-2022 Clarity (U) Clear Clear [facility] Urine color determinationOrd ered By: Dr. Williamson on 06-04-2022 Color (U) Yellow Yellow [facility] Urine glucose detectionOrder ed By: Dr. Williamson on 06-04-2022 Glucose Ql (U) Normal mg/dl Normal [facility] Urine leukocyte esterase det ection by dipstickOrdered By: Dr. Williamson on 06-04-2022 Leukocyte esterase Test strip Ql (U) Negative Negative [facility] Urine pHOrdered By: Dr. Marquez sol on 06-04-2022 pH (U) 6.0 [pH] 5.0 - 8.0 [facility] Urine sediment bacteria coun t by microscopy (number/high power field)Ordered By: Dr. Williamson on 06-04-2022 Bacteria LM.HPF (Urine sed) [#/Area] RARE /hpf None Seen [facility] Urine specific gravity measu rementOrdered By: Dr. Williamson on 06-04-2022 Specific gravity (U) [Rel density] 1.015 1.002-1.03 0 [facility] Urobilinogen Auto test strip Ql (U)Ordered By: Dr. Williamson on 06-04-2022 Urobilinogen Ql (U) Normal mg/dl Normal [facility] Absolute lymphocyte counton 02-26-2022 Lymphocytes Auto (Unsp spec) [#/Vol] 1.28 10*3/uL 0.83-4.51 [facility] Work Phone: Basophil percentageon 2021 Basophil percentage 0-5 SEEN /hpf 0-5 [facility] Work Phone: Basophils/100 WBC (Bld) 1.1 % 0-1 [facility] Work Phone: Bilirubin [Mass/Vol] 0.50 mg/dL 0.20-1.00 [facility] Work Phone: Comment on above: For patients on eltr ombopag therapy, use of Dimension [place] TBIL is not recommended. Chloride [Moles/Vol] 107 mmol/L 98-107 [facility] Work Phone: Eosinophils/100 WBC (Bld) 6.6 % 0-5 [facility] Work Phone: Glucose [Mass/Vol] 105 mg/dL 74-106 [facility] Work Phone: Comment on above: Fasting Glucose resu lt from 100 to 125 mg/dL suggests IMPAIRED HOMEOSTASIS per A.D.A. criteria. Neutrophils (Bld) [#/Vol] 3.3 10*3/uL 2.0-7.7 [facility] Work Phone: Neutrophils/100 WBC (Bld) 60.7 % 47-70 [facility] Work Phone: Potassium [Moles/Vol] 3.9 mmol/L 3.5-5.1 [facility] Work Phone: Protein [Mass/Vol] 7.5 g/dL 6.4-8.2 [facility] Work Phone: Sodium [Moles/Vol] 141 mmol/L 136-145 [facility] Work Phone: WBC (Bld) [#/Vol] 5.4 10*3/uL 4.4-11.0 [facility] Work Phone: [phone] Bilirubin Test strip Ql (U)o n 02-26-2022 Bilirubin Ql (U) Negative Negative [facility] Work Phone: [phone] Blood erythrocytes count (nu mber/volume)on 02-26-2022 RBC (Bld) [#/Vol] 4.74 10*6/uL 4.2-5.4 [facility] Work Phone: [phone] Blood hemoglobin measurement (mass/volume)on 02-26-2022 Hemoglobin (Bld) [Mass/Vol] 14.8 g/dL 12.0-15.0 [facility] Work Phone: [phone] Blood lymphocytes/100 leukoc yteson 02-26-2022 Lymphocytes/100 WBC (Bld) 23.5 % 19-41 [facility] Work Phone: Blood monocytes/100 leukocyt eson 02-26-2022 Monocytes/100 WBC (Bld) 7.9 % 0-10 [facility] Work Phone: [phone] Blood platelet mean volumeon 02-26-2022 Platelet mean volume (Bld) [Entitic vol] 9.8 fL 6.2-12.0 [facility] Work Phone: Determination of erythrocyte mean corpuscular volume (MCV)on 02-26-2022 MCV (RBC) [Entitic vol] 93.5 fL 81-99 [facility] Work Phone: Hematocrit Auto (Bld) [Volum e fraction]on 02-26-2022 Hematocrit (Bld) [Volume fraction] 44.3 % 37-47 [facility] Work Phone: Ketones Test strip Ql (U)on 02-26-2022 Ketones Ql (U) Negative Negative [facility] Work Phone: Laboratory - Chemistry and C hemistry - challengeon 02-26-2022 ALP [Catalytic activity/Vol] 171 U/L 45-117 [facility] Work Phone: ALT [Catalytic activity/Vol] 13 U/L 13-56 [facility] Work Phone: CO2 [Moles/Vol] 28.0 mmol/L 21.0-32.0 [facility] Work Phone: Globulin (S) [Mass/Vol] 3.9 g/dL 2.2-4.2 [facility] Work Phone: Urea nitrogen/Creatinine [Mass ratio] 15.1 mg/mg 10-20 [facility] Work Phone: Laboratory - Hematology and Cell countson 02-26-2022 Erythrocyte distribution width (RBC) [Entitic vol] 44.2 fL 35.1-43.9 [facility] Work Phone: Erythrocyte distribution width (RBC) [Ratio] 12.9 % 11.6-14.6 [facility] Work Phone: Immature granulocytes/100 WBC (Bld) 0.200 % 0.0-0.9 [facility] Work Phone: Comment on above: IG% - Immature Granu locytes (promyelocytes, myelocytes and metamyelocytes) > 1% indicates that a LEFT SHIFT is Present. MCH (RBC) [Entitic mass] 31.2 pg 27.0-32.0 [facility] Work Phone: Nucleated RBC/100 WBC (Bld) [Ratio] 0 % 0-5 [facility] Work Phone: MCHC Auto (RBC) [Mass/Vol]on 02-26-2022 MCHC (RBC) [Mass/Vol] 33.4 g/dL 32-36 [facility] Work Phone: Mucus LM Ql (Urine sed)on Mucus Ql (Urine sed) 0 SEEN /hpf [facility] Work Phone: Nitrite Test strip Ql (U)on 02-26-2022 Nitrite Ql (U) Negative Negative [facility] Work Phone: No Panel Informationon 02-26 Estimated Creatinine Clearance Calc 53.04 ml/min [facility] Work Phone: Estimated GFR (MDRD) Amer 72 mL/min >60 [facility] Work Phone: Comment on above: GFR Calc Estimated GFR (MDRD) Non-Af Amer 60 mL/min >60 [facility] Work Phone: Comment on above: Non- GFR Calc Troponin I High Sensitivity 21 pg/mL 3.0-54.0 [facility] Work Phone: Comment on above: Please Note: New Amanda t Units and Gender Specific Reference Ranges. For more information see Policy Stat Procedure [place] High Sensitivity Troponin (TNIH) and attachments. Platelets bldon 02-26-2022 Platelets (Bld) [#/Vol] 254 10*3/uL 150-450 [facility] Work Phone: Protein Test strip Ql (U)on 02-26-2022 Protein Ql (U) 15 mg/dl Negative [facility] Work Phone: Serum or plasma albumin areli urement (mass/volume)on 02-26-2022 Albumin [Mass/Vol] 3.6 g/dL 3.2-5.0 [facility] Work Phone: Serum or plasma albumin/glob ulin mass ratioon 02-26-2022 Albumin/Globulin [Mass ratio] 0.9 {ratio} 0.9-2.4 [facility] Work Phone: Serum or plasma calcium areli urement (mass/volume)on 02-26-2022 Calcium [Mass/Vol] 9.8 mg/dL 8.5-10.1 [facility] Work Phone: Serum or plasma creatinine m easurement (mass/volume)on 02-26-2022 Creatinine [Mass/Vol] 0.99 mg/dL 0.55-1.02 [facility] Work Phone: Comment on above: The validity of the calculated GFR & GFRAA in patients over 70 years has not been determined. Clinical correlation is essential. Serum or plasma urea nitroge n measurement (mass/volume)on 02-26-2022 Urea nitrogen [Mass/Vol] 15 mg/dL 7-18 [facility] Work Phone: Squamous epithelial cells de tection in urine sediment by light microscopyon 02-26-2022 Epithelial cells.squamous LM Ql (Urine sed) 0-5 SEEN /hpf 5-10 [facility] Work Phone: Thin prep Papanicolaou smear with manual screeningon 02-26-2022 Thin prep Papanicolaou smear with manual screening 12 U/L 15-37 [facility] Work Phone: Thin prep Papanicolaou smear with manual screening 6 5-15 [facility] Work Phone: Urine blood detectionon 02-06 RBC Ql (U) 10 /ul Negative [facility] Work Phone: RBC Ql (U) 0 SEEN /hpf 0-5 [facility] Work Phone: Urine clarityon 02-26-2022 Clarity (U) Sl. Cloudy Clear [facility] Work Phone: Urine color determinationon 02-26-2022 Color (U) Yellow Yellow [facility] Work Phone: Urine glucose detectionon Glucose Ql (U) Normal mg/dl Normal [facility] Work Phone: Urine leukocyte esterase det ection by dipstickon 02-26-2022 Leukocyte esterase Test strip Ql (U) 25 /ul Negative [facility] Work Phone: Urine pHon 02-26-2022 pH (U) 6.0 [pH] 5.0 - 8.0 [facility] Work Phone: Urine sediment bacteria coun t by microscopy (number/high power field)on 02-26-2022 Bacteria LM.HPF (Urine sed) [#/Area] 0 /[HPF] None Seen [facility] Work Phone: Urine specific gravity measu rementon 02-26-2022 Specific gravity (U) [Rel density] 1.015 1.002-1.03 0 [facility] Work Phone: Urobilinogen Auto test strip Ql (U)on 02-26-2022 Urobilinogen Ql (U) 1 mg/dl Normal [facility] Work Phone: Absolute lymphocyte counton 01-26-2022 Lymphocytes Auto (Unsp spec) [#/Vol] 1.80 10*3/uL 0.83-4.51 [facility] Work Phone: Basophil percentageon 2021 Basophil percentage 0-5 SEEN /hpf [facility] Work Phone: Basophils/100 WBC (Bld) 0.7 % 0-1 [facility] Work Phone: Bilirubin [Mass/Vol] 0.30 mg/dL 0.20-1.00 [facility] Work Phone: Comment on above: For patients on eltr ombopag therapy, use of Dimension [place] TBIL is not recommended. Chloride [Moles/Vol] 105 mmol/L 98-107 [facility] Work Phone: Eosinophils/100 WBC (Bld) 4.6 % 0-5 [facility] Work Phone: Glucose [Mass/Vol] 95 mg/dL 74-106 [facility] Work Phone: Neutrophils (Bld) [#/Vol] 6.6 10*3/uL 2.0-7.7 [facility] Work Phone: Neutrophils/100 WBC (Bld) 68.7 % 47-70 [facility] Work Phone: [phone] Potassium [Moles/Vol] 3.5 mmol/L 3.5-5.1 [facility] Work Phone: Protein [Mass/Vol] 7.3 g/dL 6.4-8.2 [facility] Work Phone: [phone] Sodium [Moles/Vol] 141 mmol/L 136-145 [facility] Work Phone: WBC (Bld) [#/Vol] 9.6 10*3/uL 4.4-11.0 [facility] Work Phone: [phone] Bilirubin Test strip Ql (U)o n 01-26-2022 Bilirubin Ql (U) Negative Negative [facility] Work Phone: Blood erythrocytes count (nu mber/volume)on 01-26-2022 RBC (Bld) [#/Vol] 4.43 10*6/uL 4.2-5.4 [facility] Work Phone: Blood hemoglobin measurement (mass/volume)on 01-26-2022 Hemoglobin (Bld) [Mass/Vol] 14.0 g/dL 12.0-15.0 [facility] Work Phone: Blood lymphocytes/100 leukoc yteson 01-26-2022 Lymphocytes/100 WBC (Bld) 18.7 % 19-41 [facility] Work Phone: Blood monocytes/100 leukocyt eson 01-26-2022 Monocytes/100 WBC (Bld) 7.0 % 0-10 [facility] Work Phone: Blood platelet mean volumeon 01-26-2022 Platelet mean volume (Bld) [Entitic vol] 9.3 fL 6.2-12.0 [facility] Work Phone: Determination of erythrocyte mean corpuscular volume (MCV)on 01-26-2022 MCV (RBC) [Entitic vol] 95.5 fL 81-99 [facility] Work Phone: Hematocrit Auto (Bld) [Volum e fraction]on 01-26-2022 Hematocrit (Bld) [Volume fraction] 42.3 % 37-47 [facility] Work Phone: Hyaline casts LM.LPF (Urine sed) [#/Area]on 01-26-2022 Hyaline casts (Urine sed) [#/Area] 0 /[LPF] [facility] Work Phone: Ketones Test strip Ql (U)on 01-26-2022 Ketones Ql (U) Negative Negative [facility] Work Phone: Laboratory - Chemistry and C hemistry - challengeon 01-26-2022 ALP [Catalytic activity/Vol] 184 U/L 45-117 [facility] Work Phone: ALT [Catalytic activity/Vol] 21 U/L 13-56 [facility] Work Phone: CO2 [Moles/Vol] 31.0 mmol/L 21.0-32.0 [facility] Work Phone: Globulin (S) [Mass/Vol] 3.9 g/dL 2.2-4.2 [facility] Work Phone: Urea nitrogen/Creatinine [Mass ratio] 18.1 mg/mg 10-20 [facility] Work Phone: Laboratory - Hematology and Cell countson 01-26-2022 Erythrocyte distribution width (RBC) [Entitic vol] 49.3 fL 35.1-43.9 [facility] Work Phone: Erythrocyte distribution width (RBC) [Ratio] 14.0 % 11.6-14.6 [facility] Work Phone: Immature granulocytes/100 WBC (Bld) 0.300 % 0.0-0.9 [facility] Work Phone: Comment on above: IG% - Immature Granu locytes (promyelocytes, myelocytes and metamyelocytes) > 1% indicates that a LEFT SHIFT is Present. MCH (RBC) [Entitic mass] 31.6 pg 27.0-32.0 [facility] Work Phone: Nucleated RBC/100 WBC (Bld) [Ratio] 0 % 0-5 [facility] Work Phone: MCHC Auto (RBC) [Mass/Vol]on 01-26-2022 MCHC (RBC) [Mass/Vol] 33.1 g/dL 32-36 [facility] Work Phone: Mucus LM Ql (Urine sed)on Mucus Ql (Urine sed) RARE /hpf [facility] Work Phone: Nitrite Test strip Ql (U)on 01-26-2022 Nitrite Ql (U) Negative Negative [facility] Work Phone: No Panel Informationon 01-26 SARS-CoV-2 & FLU Antigen (Rapid) [facility] Work Phone: D-Dimer Quantitative (PE/DVT) 1.14 FEU/ug/m 0.27-0.49 [facility] Work Phone: Comment on above: D-Dimer ELEVATED (>0 .49): Additional studies and clinicalassessments are indicated to conclude diagnosis of:Deep Vein Thrombosis (DVT) or Pulmonary Embolism (PE)CRITICAL VALUE VERIFIED. CALLED TO [id number] Jody Perez.RESULTS READ BACK BY SAME . Estimated Creatinine Clearance Calc 48.07 ml/min [facility] Work Phone: Estimated GFR (MDRD) Amer 68 mL/min >60 [facility] Work Phone: Comment on above: GFR Calc Estimated GFR (MDRD) Non-Af Amer 56 mL/min >60 [facility] Work Phone: Comment on above: Non- GFR Calc Troponin I High Sensitivity 40 pg/mL 3.0-54.0 [facility] Work Phone: Comment on above: Please Note: New Amanda t Units and Gender Specific Reference Ranges. For more information see Policy Stat Procedure [place] High Sensitivity Troponin (TNIH) and attachments. Platelets bldon 01-26-2022 Platelets (Bld) [#/Vol] 288 10*3/uL 150-450 [facility] Work Phone: Protein Test strip Ql (U)on 01-26-2022 Protein Ql (U) 15 mg/dl Negative [facility] Work Phone: Serum or plasma albumin areli urement (mass/volume)on 01-26-2022 Albumin [Mass/Vol] 3.4 g/dL 3.2-5.0 [facility] Work Phone: Serum or plasma albumin/glob ulin mass ratioon 01-26-2022 Albumin/Globulin [Mass ratio] 0.9 {ratio} 0.9-2.4 [facility] Work Phone: Serum or plasma calcium areli urement (mass/volume)on 01-26-2022 Calcium [Mass/Vol] 9.4 mg/dL 8.5-10.1 [facility] Work Phone: Serum or plasma creatinine m easurement (mass/volume)on 01-26-2022 Creatinine [Mass/Vol] 1.05 mg/dL 0.55-1.02 [facility] Work Phone: Comment on above: The validity of the calculated GFR & GFRAA in patients over 70 years has not been determined. Clinical correlation is essential. Serum or plasma urea nitroge n measurement (mass/volume)on 01-26-2022 Urea nitrogen [Mass/Vol] 19 mg/dL 7-18 [facility] Work Phone: Squamous epithelial cells de tection in urine sediment by light microscopyon 01-26-2022 Epithelial cells.squamous LM Ql (Urine sed) 0-5 SEEN /hpf [facility] Work Phone: Thin prep Papanicolaou smear with manual screeningon 01-26-2022 Thin prep Papanicolaou smear with manual screening 15 U/L 15-37 [facility] Work Phone: Thin prep Papanicolaou smear with manual screening 5 5-15 [facility] Work Phone: Urine blood detectionon 01-06 RBC Ql (U) 50 /ul Negative [facility] Work Phone: RBC Ql (U) 0-5 SEEN /hpf [facility] Work Phone: Urine clarityon 01-26-2022 Clarity (U) Sl. Cloudy Clear [facility] Work Phone: Urine color determinationon 01-26-2022 Color (U) Yellow Yellow [facility] Work Phone: Urine glucose detectionon Glucose Ql (U) Normal mg/dl Normal [facility] Work Phone: Urine leukocyte esterase det ection by dipstickon 01-26-2022 Leukocyte esterase Test strip Ql (U) Negative Negative [facility] Work Phone: Urine pHon 01-26-2022 pH (U) 6.5 [pH] [facility] Work Phone: [phone] Urine sediment bacteria coun t by microscopy (number/high power field)on 01-26-2022 Bacteria LM.HPF (Urine sed) [#/Area] 0 /[HPF] None Seen [facility] Work Phone: Urine specific gravity measu rementon 01-26-2022 Specific gravity (U) [Rel density] 1.020 [facility] Work Phone: Urobilinogen Auto test strip Ql (U)on 01-26-2022 Urobilinogen Ql (U) Normal mg/dl Normal [facility] Work Phone: Absolute lymphocyte counton 01-20-2022 Lymphocytes Auto (Unsp spec) [#/Vol] 2.22 10*3/uL 0.83-4.51 [facility] Work Phone: Basophil percentageon 2021 Basophils/100 WBC (Bld) 0.6 % 0-1 [facility] Work Phone: Bilirubin [Mass/Vol] 0.30 mg/dL 0.20-1.00 [facility] Work Phone: Comment on above: For patients on eltr ombopag therapy, use of Dimension [place] TBIL is not recommended. Chloride [Moles/Vol] 105 mmol/L 98-107 [facility] Work Phone: Cholesterol [Mass/Vol] 131 mg/dL <200 [facility] Work Phone: Comment on above: <200 mg/dL Desirable 200-240 mg/dL Borderline >240 mg/dL High Risk Eosinophils/100 WBC (Bld) 5.2 % 0-5 [facility] Work Phone: [phone] Glucose [Mass/Vol] 97 mg/dL 74-106 [facility] Work Phone: Neutrophils (Bld) [#/Vol] 4.8 10*3/uL 2.0-7.7 [facility] Work Phone: Neutrophils/100 WBC (Bld) 58.8 % 47-70 [facility] Work Phone: Potassium [Moles/Vol] 3.8 mmol/L 3.5-5.1 [facility] Work Phone: Protein [Mass/Vol] 6.0 g/dL 6.4-8.2 [facility] Work Phone: Sodium [Moles/Vol] 140 mmol/L 136-145 [facility] Work Phone: Triglyceride [Mass/Vol] 157 mg/dL [facility] Work Phone: Comment on above: The drugs N-Acetylcy steine and Metamizole may falsely depress this assay.Serum Triglycerides Reference Interval Normal <150 mg/dL Borderline high 150 - 199 mg/dL High 200 - 499 mg/dL Very High > or = 500 mg/dL WBC (Bld) [#/Vol] 8.1 10*3/uL 4.4-11.0 [facility] Work Phone: Blood erythrocytes count (nu mber/volume)on 01-20-2022 RBC (Bld) [#/Vol] 3.79 10*6/uL 4.2-5.4 [facility] Work Phone: Blood hemoglobin measurement (mass/volume)on 01-20-2022 Hemoglobin (Bld) [Mass/Vol] 12.0 g/dL 12.0-15.0 [facility] Work Phone: Blood lymphocytes/100 leukoc yteson 01-20-2022 Lymphocytes/100 WBC (Bld) 27.3 % 19-41 [facility] Work Phone: Blood monocytes/100 leukocyt eson 01-20-2022 Monocytes/100 WBC (Bld) 7.5 % 0-10 [facility] Work Phone: Blood platelet mean volumeon 01-20-2022 Platelet mean volume (Bld) [Entitic vol] 9.3 fL 6.2-12.0 [facility] Work Phone: Determination of erythrocyte mean corpuscular volume (MCV)on 01-20-2022 MCV (RBC) [Entitic vol] 100.5 fL 81-99 [facility] Work Phone: Hematocrit Auto (Bld) [Volum e fraction]on 01-20-2022 Hematocrit (Bld) [Volume fraction] 38.1 % 37-47 [facility] Work Phone: Laboratory - Chemistry and C hemistry - challengeon 01-20-2022 ALP [Catalytic activity/Vol] 165 U/L 45-117 [facility] Work Phone: ALT [Catalytic activity/Vol] 27 U/L 13-56 [facility] Work Phone: CO2 [Moles/Vol] 35.0 mmol/L 21.0-32.0 [facility] Work Phone: Globulin (S) [Mass/Vol] 3.4 g/dL 2.2-4.2 [facility] Work Phone: Magnesium [Mass/Vol] 1.9 mg/dL 1.6-2.6 [facility] Work Phone: Urea nitrogen/Creatinine [Mass ratio] 25.7 mg/mg 10-20 [facility] Work Phone: Laboratory - Hematology and Cell countson 01-20-2022 Erythrocyte distribution width (RBC) [Entitic vol] 48.7 fL 35.1-43.9 [facility] Work Phone: Erythrocyte distribution width (RBC) [Ratio] 13.2 % 11.6-14.6 [facility] Work Phone: Immature granulocytes/100 WBC (Bld) 0.600 % 0.0-0.9 [facility] Work Phone: Comment on above: IG% - Immature Granu locytes (promyelocytes, myelocytes and metamyelocytes) > 1% indicates that a LEFT SHIFT is Present. MCH (RBC) [Entitic mass] 31.7 pg 27.0-32.0 [facility] Work Phone: Nucleated RBC/100 WBC (Bld) [Ratio] 0 % 0-5 [facility] Work Phone: MCHC Auto (RBC) [Mass/Vol]on 01-20-2022 MCHC (RBC) [Mass/Vol] 31.5 g/dL 32-36 [facility] Work Phone: No Panel Informationon 01-20 Estimated Creatinine Clearance Calc 56.71 ml/min [facility] Work Phone: Estimated GFR (MDRD) Amer 81 mL/min >60 [facility] Work Phone: Comment on above: GFR Calc Estimated GFR (MDRD) Non-Af Amer 67 mL/min >60 [facility] Work Phone: Comment on above: Non- GFR Calc Platelets bldon 01-20-2022 Platelets (Bld) [#/Vol] 259 10*3/uL 150-450 [facility] Work Phone: Serum or plasma albumin areli urement (mass/volume)on 01-20-2022 Albumin [Mass/Vol] 2.6 g/dL 3.2-5.0 [facility] Work Phone: Serum or plasma albumin/glob ulin mass ratioon 01-20-2022 Albumin/Globulin [Mass ratio] 0.8 {ratio} 0.9-2.4 [facility] Work Phone: Serum or plasma calcium areli urement (mass/volume)on 01-20-2022 Calcium [Mass/Vol] 8.6 mg/dL 8.5-10.1 [facility] Work Phone: Serum or plasma cholesterol in HDL measurement (mass/volume)on 01-20-2022 Cholesterol in HDL [Mass/Vol] 32 mg/dL [facility] Work Phone: Comment on above: The drugs N-Acetylcy steine and Metamizole may falsely depress this assay. Reference Range HDL <40 mg/dL Low HDL Cholesterol HDL >or= 60 mg/dL High HDL Cholesterol Serum or plasma cholesterol in VLDL measurement (mass/volume)on 01-20-2022 Cholesterol in VLDL [Mass/Vol] 31 mg/dL 5-40 [facility] Work Phone: Serum or plasma creatinine m easurement (mass/volume)on 01-20-2022 Creatinine [Mass/Vol] 0.89 mg/dL 0.55-1.02 [facility] Work Phone: Comment on above: The validity of the calculated GFR & GFRAA in patients over 70 years has not been determined. Clinical correlation is essential. Serum or plasma low density lipoprotein (LDL) cholesterol measurement (mass/volume)on 01-20-2022 Cholesterol in LDL [Mass/Vol] 68 mg/dL 0-130 [facility] Work Phone: Serum or plasma urea nitroge n measurement (mass/volume)on 01-20-2022 Urea nitrogen [Mass/Vol] 23 mg/dL 7-18 [facility] Work Phone: Thin prep Papanicolaou smear with manual screeningon 01-20-2022 Thin prep Papanicolaou smear with manual screening 20 U/L 15-37 [facility] Work Phone: Thin prep Papanicolaou smear with manual screening 0 5-15 [facility] Work Phone: No Panel Informationon 01-17 Troponin I High Sensitivity 1176 pg/mL 3.0-54.0 [facility] Work Phone: Comment on above: Critical Result(s) C leatha at: 12:41:20 01/17/2022 by: Kaye Mae. Results read back by same. Please Note: New Test Units and Gender Specific Reference Ranges. For more information see Policy Stat Procedure [place] High Sensitivity Troponin (TNIH) and attachments. D-Dimer Quantitative (PE/DVT) 1.34 FEU/ug/m 0.27-0.49 [facility] Work Phone: Comment on above: D-Dimer ELEVATED (>0 .49): Additional studies and clinicalassessments are indicated to conclude diagnosis of:Deep Vein Thrombosis (DVT) or Pulmonary Embolism (PE)CRITICAL VALUE VERIFIED. CALLED TO SAMANTA NGUYEN (ICU)01/17/22 0748 Scot Livingston.RESULTS READ BACK BY SAME. Thyroid Stimulating Hormone (TSH) 2.76 uIU/mL 0.358-3.74 [facility] Work Phone: Absolute lymphocyte counton 01-01-2022 Lymphocytes Auto (Unsp spec) [#/Vol] 2.70 10*3/uL 0.83-4.51 [facility] Work Phone: Basophil percentageon 2021 Basophils/100 WBC (Bld) 1.1 % 0-1 [facility] Work Phone: [phone] Chloride [Moles/Vol] 106 mmol/L 98-107 [facility] Work Phone: [phone] Eosinophils/100 WBC (Bld) 11.8 % 0-5 [facility] Work Phone: [phone] Glucose [Mass/Vol] 84 mg/dL 74-106 [facility] Work Phone: Neutrophils (Bld) [#/Vol] 3.9 10*3/uL 2.0-7.7 [facility] Work Phone: [phone] Neutrophils/100 WBC (Bld) 46.3 % 47-70 [facility] Work Phone: Potassium [Moles/Vol] 4.6 mmol/L 3.5-5.1 [facility] Work Phone: Comment on above: Moderate Hemolysis, Result may be falsely increased. Sodium [Moles/Vol] 139 mmol/L 136-145 [facility] Work Phone: [phone] WBC (Bld) [#/Vol] 8.5 10*3/uL 4.4-11.0 [facility] Work Phone: Blood erythrocytes count (nu mber/volume)on 01-01-2022 RBC (Bld) [#/Vol] 4.64 10*6/uL 4.2-5.4 [facility] Work Phone: Blood hemoglobin measurement (mass/volume)on 01-01-2022 Hemoglobin (Bld) [Mass/Vol] 14.7 g/dL 12.0-15.0 [facility] Work Phone: [phone] Blood lymphocytes/100 leukoc yteson 01-01-2022 Lymphocytes/100 WBC (Bld) 32.0 % 19-41 [facility] Work Phone: Blood monocytes/100 leukocyt eson 01-01-2022 Monocytes/100 WBC (Bld) 8.3 % 0-10 [facility] Work Phone: Blood platelet mean volumeon 01-01-2022 Platelet mean volume (Bld) [Entitic vol] 9.9 fL 6.2-12.0 [facility] Work Phone: Determination of erythrocyte mean corpuscular volume (MCV)on 01-01-2022 MCV (RBC) [Entitic vol] 95.0 fL 81-99 [facility] Work Phone: Glucose Glucometer (BldC) [M ass/Vol]on 01-01-2022 Glucose [Mass/Vol] 111 mg/dL 74-106 [facility] Work Phone: Comment on above: MANAGEMENT OF PATIEN T CARE PER NURSING PROTOCOL Hematocrit Auto (Bld) [Volum e fraction]on 01-01-2022 Hematocrit (Bld) [Volume fraction] 44.1 % 37-47 [facility] Work Phone: Laboratory - Chemistry and C hemistry - challengeon 01-01-2022 CO2 [Moles/Vol] 30.0 mmol/L 21.0-32.0 [facility] Work Phone: Urea nitrogen/Creatinine [Mass ratio] 24.3 mg/mg 10-20 [facility] Work Phone: Laboratory - Hematology and Cell countson 01-01-2022 Erythrocyte distribution width (RBC) [Entitic vol] 45.1 fL 35.1-43.9 [facility] Work Phone: Erythrocyte distribution width (RBC) [Ratio] 13.1 % 11.6-14.6 [facility] Work Phone: Immature granulocytes/100 WBC (Bld) 0.500 % 0.0-0.9 [facility] Work Phone: Comment on above: IG% - Immature Granu locytes (promyelocytes, myelocytes and metamyelocytes) > 1% indicates that a LEFT SHIFT is Present. MCH (RBC) [Entitic mass] 31.7 pg 27.0-32.0 [facility] Work Phone: Nucleated RBC/100 WBC (Bld) [Ratio] 0 % 0-5 [facility] Work Phone: MCHC Auto (RBC) [Mass/Vol]on 01-01-2022 MCHC (RBC) [Mass/Vol] 33.3 g/dL 32-36 [facility] Work Phone: No Panel Informationon 01-01 Estimated Creatinine Clearance Calc 64.03 ml/min [facility] Work Phone: Estimated GFR (MDRD) Amer 89 mL/min >60 [facility] Work Phone: Comment on above: GFR Calc Estimated GFR (MDRD) Non-Af Amer 74 mL/min >60 [facility] Work Phone: Comment on above: Non- GFR Calc Platelets bldon 01-01-2022 Platelets (Bld) [#/Vol] 235 10*3/uL 150-450 [facility] Work Phone: Serum or plasma calcium areli urement (mass/volume)on 01-01-2022 Calcium [Mass/Vol] 8.8 mg/dL 8.5-10.1 [facility] Work Phone: Serum or plasma creatinine m easurement (mass/volume)on 01-01-2022 Creatinine [Mass/Vol] 0.82 mg/dL 0.55-1.02 [facility] Work Phone: Comment on above: The validity of the calculated GFR & GFRAA in patients over 70 years has not been determined. Clinical correlation is essential. Serum or plasma urea nitroge n measurement (mass/volume)on 01-01-2022 Urea nitrogen [Mass/Vol] 20 mg/dL 7-18 [facility] Work Phone: Thin prep Papanicolaou smear with manual screeningon 01-01-2022 Thin prep Papanicolaou smear with manual screening 3 5-15 [facility] Work Phone: Absolute lymphocyte counton 09-02-2021 Lymphocytes Auto (Unsp spec) [#/Vol] 3.19 10*3/uL 0.83-4.51 [facility] Work Phone: Basophil percentageon 2020 Bilirubin [Mass/Vol] 0.30 mg/dL 0.20-1.00 [facility] Work Phone: Comment on above: For patients on eltr ombopag therapy, use of Dimension [place] TBIL is not recommended. Chloride [Moles/Vol] 110 mmol/L 98-107 [facility] Work Phone: Cholesterol [Mass/Vol] 195 mg/dL <200 [facility] Work Phone: Comment on above: <200 mg/dL Desirable 200-240 mg/dL Borderline >240 mg/dL High Risk Eosinophils/100 WBC (Bld) 6.8 % 0-5 [facility] Work Phone: Glucose [Mass/Vol] 99 mg/dL 74-106 [facility] Work Phone: Comment on above: Please note revised GLUCOSE reference range effective 2017. Neutrophils (Bld) [#/Vol] 2.5 10*3/uL 2.0-7.7 [facility] Work Phone: Potassium [Moles/Vol] 4.1 mmol/L 3.5-5.1 [facility] Work Phone: Protein [Mass/Vol] 6.6 g/dL 6.4-8.2 [facility] Work Phone: Sodium [Moles/Vol] 143 mmol/L 136-145 [facility] Work Phone: Triglyceride [Mass/Vol] 193 mg/dL [facility] Work Phone: Comment on above: The drugs N-Acetylcy steine and Metamizole may falsely depress this assay.Serum Triglycerides Reference Interval Normal <150 mg/dL Borderline high 150 - 199 mg/dL High 200 - 499 mg/dL Very High > or = 500 mg/dL WBC (Bld) [#/Vol] 6.6 10*3/uL 4.4-11.0 [facility]: Blood erythrocytes count (nu mber/volume)on 09-02-2021 RBC (Bld) [#/Vol] 4.08 10*6/uL 4.2-5.4 [facility]: Blood hemoglobin measurement (mass/volume)on 09-02-2021 Hemoglobin (Bld) [Mass/Vol] 12.8 g/dL 12.0-15.0 [facility] Work Phone: Blood lymphocytes/100 leukoc yteson 09-02-2021 Lymphocytes/100 WBC (Bld) 48.0 % 19-41 [facility] Work Phone: Blood monocytes/100 leukocyt eson 09-02-2021 Monocytes/100 WBC (Bld) 6.5 % 0-10 [facility] Work Phone: Blood platelet mean volumeon 09-02-2021 Platelet mean volume (Bld) [Entitic vol] 9.3 fL 6.2-12.0 [facility] Work Phone: Determination of erythrocyte mean corpuscular volume (MCV)on 09-02-2021 MCV (RBC) [Entitic vol] 94.6 fL 81-99 [facility] Work Phone: Hematocrit Auto (Bld) [Volum e fraction]on 09-02-2021 Hematocrit (Bld) [Volume fraction] 38.6 % 37-47 [facility] Work Phone: Laboratory - Chemistry and C hemistry - challengeon 09-02-2021 ALP [Catalytic activity/Vol] 105 U/L 45-117 [facility] Work Phone: ALT [Catalytic activity/Vol] 19 U/L 13-56 [facility] Work Phone: CO2 [Moles/Vol] 28.0 mmol/L 21.0-32.0 [facility] Work Phone: Globulin (S) [Mass/Vol] 3.7 g/dL 2.2-4.2 [facility] Work Phone: Urea nitrogen/Creatinine [Mass ratio] 23.8 mg/mg 10-20 [facility] Work Phone: Laboratory - Hematology and Cell countson 09-02-2021 Basophils/100 WBC (Unsp spec) 1.1 % 0-1 [facility] Work Phone: Erythrocyte distribution width (RBC) [Entitic vol] 49.0 fL 35.1-43.9 [facility] Work Phone: Erythrocyte distribution width (RBC) [Ratio] 14.2 % 11.6-14.6 [facility] Work Phone: Immature granulocytes/100 WBC (Bld) 0.200 % 0.0-0.9 [facility] Work Phone: Comment on above: IG% - Immature Granu locytes (promyelocytes, myelocytes and metamyelocytes) > 1% indicates that a LEFT SHIFT is Present. MCH (RBC) [Entitic mass] 31.4 pg 27.0-32.0 [facility] Work Phone: Neutrophils/100 WBC (Bld) 37.4 % 47-70 [facility] Work Phone: Nucleated RBC/100 WBC (Bld) [Ratio] 0 % 0-5 [facility] Work Phone: MCHC Auto (RBC) [Mass/Vol]on 09-02-2021 MCHC (RBC) [Mass/Vol] 33.2 g/dL 32-36 [facility] Work Phone: No Panel Informationon 09-02 Estimated Creatinine Clearance Calc 70.01 ml/min [facility] Work Phone: [phone] Estimated GFR (MDRD) Amer 99 mL/min >60 [facility] Work Phone: Comment on above: GFR Calc Estimated GFR (MDRD) Non-Af Amer 82 mL/min >60 [facility] Work Phone: Comment on above: Non- GFR Calc Platelets bldon 09-02-2021 Platelets (Bld) [#/Vol] 233 10*3/uL 150-450 [facility] Work Phone: Serum or plasma albumin areli urement (mass/volume)on 09-02-2021 Albumin [Mass/Vol] 2.9 g/dL 3.2-5.0 [facility] Work Phone: Serum or plasma albumin/glob ulin mass ratioon 09-02-2021 Albumin/Globulin [Mass ratio] 0.8 {ratio} 0.9-2.4 [facility] Work Phone: Serum or plasma calcium areli urement (mass/volume)on 09-02-2021 Calcium [Mass/Vol] 8.9 mg/dL 8.5-10.1 [facility] Work Phone: Serum or plasma cholesterol in HDL measurement (mass/volume)on 09-02-2021 Cholesterol in HDL [Mass/Vol] 43 mg/dL [facility] Work Phone: Comment on above: The drugs N-Acetylcy steine and Metamizole may falsely depress this assay. Reference Range HDL <40 mg/dL Low HDL Cholesterol HDL >or= 60 mg/dL High HDL Cholesterol Serum or plasma cholesterol in VLDL measurement (mass/volume)on 09-02-2021 Cholesterol in VLDL [Mass/Vol] 39 mg/dL 5-40 [facility] Work Phone: Serum or plasma creatinine m easurement (mass/volume)on 09-02-2021 Creatinine [Mass/Vol] 0.76 mg/dL 0.55-1.02 [facility] Work Phone: Comment on above: The validity of the calculated GFR & GFRAA in patients over 70 years has not been determined. Clinical correlation is essential. Serum or plasma low density lipoprotein (LDL) cholesterol measurement (mass/volume)on 09-02-2021 Cholesterol in LDL [Mass/Vol] 113 mg/dL 0-130 [facility] Work Phone: Serum or plasma urea nitroge n measurement (mass/volume)on 09-02-2021 Urea nitrogen [Mass/Vol] 18 mg/dL 7-18 [facility] Work Phone: Thin prep Papanicolaou smear with manual screeningon 09-02-2021 Thin prep Papanicolaou smear with manual screening 19 U/L 15-37 [facility] Work Phone: Thin prep Papanicolaou smear with manual screening 5 5-15 [facility] Work Phone: INR in Blood by Coagulation assayon 09-01-2021 INR Coag (Bld) [Relative time] 1.0 {INR} [facility] Work Phone: Laboratory - Coagulationon 1 11-02-2020 aPTT Coag (Bld) [Time] 27.5 s 24.1-36.2 [facility] Work Phone: PT Coag (PPP) [Time] 12.3 s 11.7-14.9 [facility] Work Phone: No Panel Informationon 09-01 Troponin I High Sensitivity 104 pg/mL 3.0-54.0 [facility] Work Phone: Comment on above: Please Note: New Amanda t Units and Gender Specific Reference Ranges. For more information see Policy Stat Procedure [place] High Sensitivity Troponin (TNIH) and attachments. D-Dimer Quantitative (PE/DVT) 0.86 FEU/ug/m 0.27-0.49 [facility] Work Phone: Comment on above: D-Dimer ELEVATED (>0 .49): Additional studies and clinicalassessments are indicated to conclude diagnosis of:Deep Vein Thrombosis (DVT) or Pulmonary Embolism (PE)CRITICAL VALUE VERIFIED. CALLED TO GUS DUGAN09/01/21 0950 Elizabeth Wynn.RESULTS READ BACK BY SAME . Whole blood hemoglobin A1c/t otal hemoglobin ratio (mass fraction)on 09-01-2021 HbA1c (Bld) [Mass fraction] 5.1 % 3.8-5.6 [facility] Work Phone: Comment on above: Normal < 5.7 % Predi abetic 5.7 - 6.4 % Diabetic >or= 6.5 % Please note range changes. CR Ribs w/ PA Chest Lefton 1 09-25-2020 CR Ribs w/ PA Chest Left Patient Name: MARCIA ORTIZ Diagnostic Radiology ACCESSION EXAM DATE/TIME PROCEDURE ORDERING PROVIDER [id number] 07/26/2021 14:45 EST CR Ribs w/ PA Chest Left [id number] -CODI KHAN CPT code 38136 Reason For Exam (CR Ribs w/ PA Chest Left) Fall two days ago into a pole, hit left ribcage Report LEFT RIB SERIES CLINICAL INDICATION: Pain after trauma A PA view of the chest followed by three plain films of the left rib cage were obtained. COMPARISON: CTA chest dated 06/15/2021. FINDINGS: No displaced rib fractures are seen. There is no pneumothorax. No focal areas of consolidation are seen. IMPRESSION: No displaced rib fractures are seen within the left hemithorax. Report Dictated on Final Dictating Physician: MD HERRERA JONATHAN R Signed Date and Time: 07/26/2021 3:18 pm Signed by: MD HERRERA JONATHAN R Transcribed Date and Time: 07/26/2021 3:19 Normal [facility] ED [facility] Marcia Masc[facility] : 1955 Date of Evaluation: 07/26/2021 ED SINTIA Provider: BACILIO Bishop Chief Complaint Chief Complaint Patient presents with ? Fall [place] I was wearing a KN95 mask for the entirety of this encounter. Marcia Mascorro is a 65 y.o. female who presents to the emergency department for evaluation of left-sided rib cage pain after falling. Patient states she fell approximately 2 days ago into some type of pole. Patient did not hit her head or lose consciousness. Patient is not on any blood thinners. Patient states pain is worse with palpation to the area as well as taking a deep breath. Patient was not having pain before this incident. Patient states the pain is not getting any better and came into the emergency room for evaluation. Patient has not taken anything at home. No alcohol or drug use. Patient does smoke. Patient denies aggravating/alleviating factors. Patient denies CP, SOB, fevers, aches, chills, frequency, urgency, constipation or diarrhea. ROS: Review of Systems At least 10 systems reviewed and otherwise acutely negative except as in the [place]. Past History Past Medical History: Diagnosis Date ? Anxiety ? Blood circulation, collateral ? CHF (congestive heart failure) (HCC) ? Depression ? Hypertension Past Surgical History: Procedure Laterality Date ? HYSTERECTOMY Social History Socioeconomic History ? Marital status: Spouse name: Not on file ? Number of children: Not on file ? Years of education: Not on file ? Highest education level: Not on file Occupational History ? Not on file Tobacco Use ? Smoking status: Current Every Day Smoker Packs/day: 0.50 Types: Cigarettes ? Smokeless tobacco: Current User Substance and Sexual Activity ? Alcohol use: Not Currently ? Drug use: Not on file ? Sexual activity: Not on file Other Topics Concern ? Not on file Social History Narrative ? Not on file Social Determinants of Health Financial Resource Strain: ? Difficulty of Paying Living Expenses: Not on file Food Insecurity: ? Worried About Running Out of Food in the Last Year: Not on file ? Ran Out of Food in the Last Year: Not on file Transportation Needs: ? Lack of Transportation (Medical): Not on file ? Lack of Transportation (Non-Medical): Not on file Physical Activity: ? Days of Exercise per Week: Not on file ? Minutes of Exercise per Session: Not on file Stress: ? Feeling of Stress : Not on file Social Connections: ? Frequency of Communication with Friends and Family: Not on file ? Frequency of Social Gatherings with Friends and Family: Not on file ? Attends Sikhism Services: Not on file ? Active Member of Clubs or Organizations: Not on file ? Attends Club or Organization Meetings: Not on file ? Marital Status: Not on file Intimate Partner Violence: ? Fear of Current or Ex-Partner: Not on file ? Emotionally Abused: Not on file ? Physically Abused: Not on file ? Sexually Abused: Not on file Housing Stability: ? Unable to Pay for Housing in the Last Year: Not on file ? Number of Places Lived in the Last Year: Not on file ? Unstable Housing in the Last Year: Not on file Medications/Allergies Previous Medications ESCITALOPRAM (LEXAPRO) 10 MG TABLET Take 1 tablet by mouth daily LISINOPRIL (PRINIVIL;ZESTRIL) 20 MG TABLET Take 20 mg by mouth 2 times daily (with meals) LORAZEPAM (ATIVAN) 1 MG TABLET Take 1 mg by mouth 2 times daily. METOPROLOL SUCCINATE (TOPROL XL) 50 MG EXTENDED RELEASE TABLET Take 1 tablet by mouth daily No Known Allergies Physical Exam ED Triage Vitals [07/26/21 1358] BP Temp Temp src Pulse Resp SpO2 Height Weight (!) 148/94 98 ?F (36.7 ?C) -- 77 18 97 % -- -- Physical Exam GENERAL APPEARANCE: Awake and alert. Cooperative. No acute distress. HEAD: Normocephalic. Atraumatic. EYES: EOM's grossly intact. Sclera anicteric. ENT: Mucous membranes are moist. Tolerates saliva. No trismus. NECK: Supple. Trachea midline. HEART: RRR. No gallops or murmurs noted. LUNGS: Respirations unlabored. CTAB, no rhonchi, rales or wheezing with inspiration or expiration. Chest: Pain with palpation on the left costophrenic angle specifically ribs 9 through 11. No crepitus. No bruising of the skin. No Elkins sign. No Houlton sign. ABDOMEN: Soft. Non-tender. No guarding or rebound. EXTREMITIES: No acute deformities. SKIN: Warm and dry. NEUROLOGICAL: No gross facial drooping. Moves all 4 extremities spontaneously. PSYCHIATRIC: Normal mood. SCREENINGS Diagnostics Labs: No results found for this visit on 07/26/21. Radiographs: XR RIBS LEFT INCLUDE CHEST (MIN 3 VIEWS) Result Date: 07/26/2021 Patient Name: MARCIA MASCORRO Diagnostic Radiology ACCESSION EXAM DATE/TIME PROCEDURE ORDERING PROVIDER [id number] 07/26/2021 14:45 EST CR Ribs w/ (more content not included)... Normal [facility] XR RIBS LEFT INCLUDE CHEST ( MIN 3 VIEWS)on 07-26-2021 Patient Name: MARCIA MASCORRO Diagnostic Radiology ACCESSION EXAM DATE/TIME PROCEDURE ORDERING PROVIDER [id number] 07/26/2021 14:45 EST CR Ribs w/ PA Chest Left [id number] -CODI KHAN CPT code 24944 Reason For Exam (CR Ribs w/ PA Chest Left) Fall two days ago into a pole, hit left ribcage Report LEFT RIB SERIES CLINICAL INDICATION: Pain after trauma A PA view of the chest followed by three plain films of the left rib cage were obtained. COMPARISON: CTA chest dated 06/15/2021. FINDINGS: No displaced rib fractures are seen. There is no pneumothorax. No focal areas of consolidation are seen. IMPRESSION: No displaced rib fractures are seen within the left hemithorax. Report Dictated on --- Final --- Dictating Physician: MD HERRERA JONATHAN R Signed Date and Time: 07/26/2021 3:18 pm Signed by: MD HERRERA JONATHAN R Transcribed Date and Time: 07/26/2021 3:19 ED [facility] Louis Herrera MD - 07/26/2021 Patient Name: MARCIA MASCORRO Diagnostic Radiology ACCESSION EXAM DATE/TIME PROCEDURE ORDERING PROVIDER [id number] 07/26/2021 14:45 EST CR Ribs w/ PA Chest Left [id number] PECK CPT code 70604 Reason For Exam (CR Ribs w/ PA Chest Left) Fall two days ago into a pole, hit left ribcage Report LEFT RIB SERIES CLINICAL INDICATION: Pain after trauma A PA view of the chest followed by three plain films of the left rib cage were obtained. COMPARISON: CTA chest dated 06/15/2021. FINDINGS: No displaced rib fractures are seen. There is no pneumothorax. No focal areas of consolidation are seen. IMPRESSION: No displaced rib fractures are seen within the left hemithorax. Report Dictated on --- Final --- Dictating Physician: MD HERRERA JONATHAN R Signed Date and Time: 07/26/2021 3:18 pm Signed by: MD HERRERA JONATHAN R Transcribed Date and Time: 07/26/2021 3:19 [facility] Work Phone: Radiology Study observation (narrative) [facility] Work Phone: XR RIBS LEFT INCLUDE CHEST ( MIN 3 VIEWS)Ordered By: Louis Herrera on 07-26-2021 [employer] Work Phone: Procalcitoninon 06-18-2021 Procalcitonin 0.07 ng/mL Normal 0.00-0.09 [facility] Comment on above: Performed By: #### B NP3, LACT3, CMP3, TROPN, PT, HEMOG #### [employer] [address] [place] [address] ProcalcitoninOrdered By: Keisha Hill on 06-18-2021 Interpretation See Below [facility] Work Phone: Comment on above: PCT <0.50 = Low risk of severe sepsis and/or septic shock. PCT >2.00 = High risk of severe sepsis and/or septic shock. Procalcitonin 0.07 ng/mL 0.00 - 0.09 ng/mL [facility] Work Phone: Test Performed by [employer] [facility], [address] [place] [id number] [employer] Work Phone: [facility] Work Phone: APTTOrdered By: Jesus Hill on 06-17-2021 aPTT Coag (Bld) [Time] 29.3 s Normal 20.0-30.5 [employer] Work Phone: Comment on above: NOTE: The therapeuti c time for Heparin anticoagulation, based on Xa activity inhibition, is an APTT of 46-80 seconds. Result Comment: NOTE : The therapeutic time for Heparin anticoagulation, based on Xa activity inhibition, is an APTT of 46-80 seconds. Performed By: #### B NP3, LACT3, CMP3, TROPN, PT, HEMOG #### [employer] [address] [place] [address] C-Reactive Proteinon CRP [Mass/Vol] 13.6 mg/L High 0.0-9.9 [facility] Comment on above: Result Comment: . Performed By: #### B NP3, LACT3, CMP3, TROPN, PT, HEMOG #### [facility] [address] [place] [address] C-Reactive ProteinOrdered By : [facility] on 06-17-2021 CRP [Mass/Vol] 13.6 mg/L High 0.0 - 9.9 mg/L [facility] Work Phone: Comment on above: . CBC Auto DifferentialOrdered By: [facility] on 06-17-2021 Absolute Baso # 0.1 10*3/uL 0.0 - 0.2 10*3/uL [facility] Work Phone: ) Absolute Neut # 5.1 10*3/uL 1.8 - 7.0 10*3/uL [facility] Work Phone: ) 222 Basophils/100 WBC (Bld) 0.8 % 0.0 - 2.0 % [facility]AW[facility] Work Phone: Eosinophils (Bld) [#/Vol] 0.0 10*3/uL 0.0 - 0.5 10*3/uL [facility] Work Phone: ) 222 Eosinophils/100 WBC (Bld) 0.0 % Low 1.0 - 6.0 % [facility] Work Phone: ) 222 Granulocytes/100 WBC (Bld) 79.0 % 40.0 - 80.0 % [facility] Work Phone: ) Hematocrit (Bld) [Volume fraction] 38.4 % 35.0 - 47.0 % [facility] Work Phone: ) 222 Hemoglobin.gastrointesti nal spec 1 Ql (Stl) 12.7 g/dL 11.7 - 16.0 g/dL [facility] Work Phone: [phone] Interpretation and review of laboratory results Abnormal [facility] [facility] Work Phone: ) [phone] Lymphocytes (Bld) [#/Vol] 0.9 10*3/uL Low 1.0 - 4.3 10*3/uL [email or web address] Work Phone: ) [phone] Lymphocytes/100 WBC (Bld) 14.2 % Low 20.0 - 40.0 % [facility] Work Phone: [phone] MCH (RBC) [Entitic mass] 31.0 pg 26. 0 - 34.0 pg [facility] Work Phone: [phone] MCHC (RBC) [Mass/Vol] 33.0 % 32.0 - 36.0 % [facility] Work Phone: [phone] MCV (RBC) [Entitic vol] 94.0 fL 79.0 - 98.0 fL [facility] Work Phone: [phone] Monocytes (Bld) [#/Vol] 0.4 10*3/uL 0.0 - 0.8 10*3/uL [email or web address] Work Phone: [phone] Monocytes/100 WBC (Bld) 6.0 % 2.0 - 10.0 % [email or web address] Work Phone: () 222 Platelet distribution width (Bld) [Ratio] 13.6 % 11.5 - 14.5 % [employer] Work Phone: () 222 Platelet mean volume (Bld) [Entitic vol] 8.7 fL 7.4 - 10.4 fL [email or web address] Work Phone: [phone] Platelets (Bld) [#/Vol] 302 10*3/uL 140 - 440 10*3/uL [email or web address] Work Phone: () 222 RBC (Bld) [#/Vol] 4.09 10*6/uL 3.80 - 5.20 10*6/uL [email or web address] Work Phone: () 222 WBC (Bld) [#/Vol] 6.5 10*3/uL 3.6 - 10.7 10*3/uL [email or web address] Work Phone: [phone] Test Performed by [facility], [address] [place], [place], [place] [address] [facility] Work Phone: () [facility] Work Phone: [phone] Comp Panel with Mg Reflexon 06-17-2021 ALP [Catalytic activity/Vol] 136 U/L High 38-126 [facility] Comment on above: Performed By: #### B NP3, LACT3, CMP3, TROPN, PT, HEMOG #### [facility] [address] [place] [address] ALT [Catalytic activity/Vol] 27 U/L Normal 0-34 [facility] Comment on above: Result Comment: The ALT test is performed by an updated assay method. Please note that the reference intervals have been changed and are now sex specific. Performed By: #### B NP3, LACT3, CMP3, TROPN, PT, HEMOG #### [facility] [address] [place] [address] Anion gap [Moles/Vol] 2 mmol/L Low 3-13 [facility] Comment on above: Performed By: #### B NP3, LACT3, CMP3, TROPN, PT, HEMOG #### [facility] [address] [place] [address] AST [Catalytic activity/Vol] 39 U/L Normal 15-46 [facility] Comment on above: Performed By: #### B NP3, LACT3, CMP3, TROPN, PT, HEMOG #### [facility] [address] [place] [address] Bilirubin [Mass/Vol] 0.4 mg/dL Normal 0.2-1.3 [facility] Comment on above: Performed By: #### B NP3, LACT3, CMP3, TROPN, PT, HEMOG #### [facility] [address] [place] [address] Calcium [Mass/Vol] 9.0 mg/dL Normal 8.4-10.4 [facility] Comment on above: Performed By: #### B NP3, LACT3, CMP3, TROPN, PT, HEMOG #### [facility] [address] [place] [address] CO2 [Moles/Vol] 26 mmol/L Normal 22-30 [facility] Comment on above: Performed By: #### B NP3, LACT3, CMP3, TROPN, PT, HEMOG #### [facility] [address] [place] [address] Glucose [Mass/Vol] 155 mg/dL High 70-100 [facility] Comment on above: Performed By: #### B NP3, LACT3, CMP3, TROPN, PT, HEMOG #### [facility] [address] [place] [address] Protein [Mass/Vol] 6.2 g/dL Low 6.3-8.2 [facility] Comment on above: Performed By: #### B NP3, LACT3, CMP3, TROPN, PT, HEMOG #### [facility] [address] [place] [address] Urea nitrogen [Mass/Vol] 20 mg/dL Normal 9-20 [facility] Comment on above: Performed By: #### B NP3, LACT3, CMP3, TROPN, PT, HEMOG #### [facility] [address] [place] [address] Creatinine [Mass/Vol] 0.64 mg/dL Normal 0.52-1.25 [facility] Comment on above: Performed By: #### B NP3, LACT3, CMP3, TROPN, PT, HEMOG #### [facility] [address] [place] [address] eGFR OTHER > 90.0 Normal >60 [facility] Comment on above: Result Comment: KDIG O guidelines provide the following GFR categories: Stage GFR(ml/min/1.73 m2) Terms G1 >=90 Normal or high G2 60-89 Mildly decreased* G3a 45-59 Mildly to moderately decreased G3b 30-44 Moderately to severely decreased G4 15-29 Severely decreased G5 <15 Kidney failure *Relative to young adult level. In the absence of evidence of kidney damage, neither GFR category G1 nor G2 fulfill the criteria for CKD. The CKD-EPI equation is validated in individuals 18 years of age and older. Currently the best equation for estimating glomerular filtration rate (GFR) from serum creatinine in children is the Bedside Ziegler equation. It is less accurate in patients with extremes of muscle mass, restriction of dietary protein, ingestion of creatine, extra-renal metabolism of creatinine, or treatment with medications that affect renal tubular creatinine secretion. Performed By: #### B NP3, LACT3, CMP3, TROPN, PT, HEMOG #### [facility] [address] [place] [address] GFR/1.73 sq M.predicted among blacks MDRD (S/P/Bld) [Vol rate/Area] mL/min/{1.73_m2} Normal >60 [facility] Comment on above: Performed By: #### B NP3, LACT3, CMP3, TROPN, PT, HEMOG #### [facility] [address] [place] [address] Potassium [Moles/Vol] 4.1 mmol/L Normal 3.5-5.1 [facility] Comment on above: Performed By: #### B NP3, LACT3, CMP3, TROPN, PT, HEMOG #### [facility] [address] [place] [address] Albumin [Mass/Vol] 3.0 g/dL Low 3.5-5.0 [facility] Comment on above: Performed By: #### B NP3, LACT3, CMP3, TROPN, PT, HEMOG #### [facility] [address] [place] [address] Chloride [Moles/Vol] 107 mmol/L Normal 98-107 [facility] Comment on above: Performed By: #### B NP3, LACT3, CMP3, TROPN, PT, HEMOG #### [facility] [address] [place] [address] Sodium [Moles/Vol] 135 mmol/L Normal 135-145 [facility] Comment on above: Performed By: #### B NP3, LACT3, CMP3, TROPN, PT, HEMOG #### [facility] [address] [place] [address] Comprehensive Metabolic Pane l w/ Reflex to MGOrdered By: Jesus Hill on 06-17-2021 Albumin [Mass/Vol] 3.0 g/dL Low 3.5 - 5.0 g/dL [facility] Work Phone: ALP (Bld) [Catalytic activity/Vol] 136 U/L High 38 - 126 U/L [facility] Work Phone: ALT [Catalytic activity/Vol] 27 U/L 0 - 34 U/L [facility] Work Phone: Comment on above: The ALT test is perf ormed by an updated assay method. Please note that the reference intervals have been changed and are now sex specific. Anion gap [Moles/Vol] 2 mmol/L Low 3 - 13 mmol/L [facility] Work Phone: AST [Catalytic activity/Vol] 39 U/L 15 - 46 U/L [facility] Work Phone: [phone] Bilirubin [Mass/Vol] 0.4 mg/dL 0.2 - 1 .3 mg/dL [facility] Work Phone: Calcium [Mass/Vol] 9.0 mg/dL 8.4 - 10. 4 mg/dL [facility] Work Phone: [phone] Chloride [Moles/Vol] 107 mmol/L 98 - 10 7 mmol/L [facility] Work Phone: [phone] CO2 [Moles/Vol] 26 mmol/L 22 - 30 mmol/L [facility] Work Phone: [phone] Creatinine [Mass/Vol] 0.64 mg/dL 0.52 - 1.25 mg/dL [facility] Work Phone: EGFR IF NonAfrican Citizen Of [place] >90.0 >60 mL/min [facility] Work Phone: [phone] Comment on above: KDIGO guidelines pro vide the following GFR categories: Stage GFR(ml/min/1.73 m2) Terms G1 >=90 Normal or high G2 60-89 Mildly decreased* G3a 45-59 Mildly to moderately decreased G3b 30-44 Moderately to severely decreased G4 15-29 Severely decreased G5 <15 Kidney failure *Relative to young adult level. In the absence of evidence of kidney damage, neither GFR category G1 nor G2 fulfill the criteria for CKD. The CKD-EPI equation is validated in individuals 18 years of age and older. Currently the best equation for estimating glomerular filtration rate (GFR) from serum creatinine in children is the Bedside Ziegler equation. It is less accurate in patients with extremes of muscle mass, restriction of dietary protein, ingestion of creatine, extra-renal metabolism of creatinine, or treatment with medications that affect renal tubular creatinine secretion. Free PSA/Total PSA [Mass fraction] 6.2 g/dL Low 6.3 - 8.2 g/dL [facility] Work Phone: GFR/1.73 sq M.predicted among blacks MDRD (S/P/Bld) [Vol rate/Area] mL/min/{1.73_m2} >60 mL/min [facility] Work Phone: Glucose [Mass/Vol] 155 mg/dL High 70 - 100 mg/dL [facility] Work Phone: Potassium [Moles/Vol] 4.1 mmol/L 3.5 - 5.1 mmol/L [facility] Work Phone: Sodium [Moles/Vol] 135 mmol/L 135 - 145 mmol/L [facility] Work Phone: Urea nitrogen (BldV) [Mass/Vol] 20 mg/dL 9 - 20 mg/dL [facility] Work Phone: D-Dimer, Innovanceon 021 D-Dimer, Innovance 0.83 mg/L High <0.19-0.50 [facility] Comment on above: Result Comment: Inno summers D-Dimer values of <0.50 mg/L FEU can be used in combination with a pre-test probability model (e.g. Well's) to exclude pulmonary embolism (PE) disease, as well as an aid in the diagnosis of deep vein thrombosis (DVT). Performed By: #### B NP3, LACT3, CMP3, TROPN, PT, HEMOG #### [employer] [address] [place] [address] D-Dimer, QuantitativeOrdered By: Jesus Hill on 06-17-2021 D-Dimer, Quant 0.83 mg/L High <0.19 - 0.50 [facility] Work Phone: Comment on above: [employer] D-Dimer va lues of <0.50 mg/L FEU can be used in combination with a pre-test probability model (e.g. Well's) to exclude pulmonary embolism (PE) disease, as well as an aid in the diagnosis of deep vein thrombosis (DVT). Interpretation and review of laboratory results Abnormal [facility] Work Phone: Fibrinogenon 06-17-2021 Fibrinogen 344 mg/dL Normal 200-400 [facility] Comment on above: Performed By: #### B NP3, LACT3, CMP3, TROPN, PT, HEMOG #### [facility] [address] [place] [address] FibrinogenOrdered By: Jesus Hill on 06-17-2021 Fibrinogen 344 mg/dL 200 - 400 mg/dL [facility] Work Phone: Test Performed by [facility], [address] [place] [address] [facility] Work Phone: [facility] Work Phone: Hemogram w/ Autodiffon 06-17 Abs Baso Cnt 0.1 10*3/uL Normal 0.0-0.2 [facility] Comment on above: Performed By: #### B NP3, LACT3, CMP3, TROPN, PT, HEMOG #### [facility] [address] [place] [address] Abs Neutrophile Cnt 5.1 10*3/uL Normal 1.8-7.0 [facility] Comment on above: Performed By: #### B NP3, LACT3, CMP3, TROPN, PT, HEMOG #### [facility] [address] [place] [address] Basophils/100 WBC (Bld) 0.8 % Normal 0.0-2.0 [facility] Comment on above: Performed By: #### B NP3, LACT3, CMP3, TROPN, PT, HEMOG #### [facility] [address] [place] [address] Eosinophils (Bld) [#/Vol] 0.0 10*3/uL Normal 0.0-0.5 [facility] Comment on above: Performed By: #### B NP3, LACT3, CMP3, TROPN, PT, HEMOG #### [facility] [address] [place] [address] Eosinophils/100 WBC (Bld) 0.0 % Low 1.0-6.0 [facility] Comment on above: Performed By: #### B NP3, LACT3, CMP3, TROPN, PT, HEMOG #### [facility] [address] [place] [address] Erythrocyte distribution width (RBC) [Ratio] 13.6 % Normal 11.5-14.5 [facility] Comment on above: Performed By: #### B NP3, LACT3, CMP3, TROPN, PT, HEMOG #### [facility] [address] [place] [address] Granulocytes/100 WBC (Bld) 79.0 % Normal 40.0-80.0 [facility] Comment on above: Performed By: #### B NP3, LACT3, CMP3, TROPN, PT, HEMOG #### [facility] [address] [place] [address] Hematocrit (Bld) [Volume fraction] 38.4 % Normal 35.0-47.0 [facility] Comment on above: Performed By: #### B NP3, LACT3, CMP3, TROPN, PT, HEMOG #### [facility] [address] [place] [address] Hemoglobin (Bld) [Mass/Vol] 12.7 g/dL Normal 11.7-16.0 [facility] Comment on above: Performed By: #### B NP3, LACT3, CMP3, TROPN, PT, HEMOG #### [facility] [address] [place] [address] Lymphocytes (Bld) [#/Vol] 0.9 10*3/uL Low 1.0-4.3 [facility] Comment on above: Performed By: #### B NP3, LACT3, CMP3, TROPN, PT, HEMOG #### [facility] [address] [place] [address] Lymphocytes/100 WBC (Bld) 14.2 % Low 20.0-40.0 [facility] Comment on above: Performed By: #### B NP3, LACT3, CMP3, TROPN, PT, HEMOG #### [facility] [address] [place] [address] MCH (RBC) [Entitic mass] 31.0 pg Normal 26.0-34.0 [facility] Comment on above: Performed By: #### B NP3, LACT3, CMP3, TROPN, PT, HEMOG #### [facility] [address] [place] [address] MCHC 33.0 % Normal 32.0-36.0 [facility] Comment on above: Performed By: #### B NP3, LACT3, CMP3, TROPN, PT, HEMOG #### [facility] [address] [place] [address] MCV (RBC) [Entitic vol] 94.0 fL Normal 79.0-98.0 [facility] Comment on above: Performed By: #### B NP3, LACT3, CMP3, TROPN, PT, HEMOG #### [facility] [address] [place] [address] Monocytes (Bld) [#/Vol] 0.4 10*3/uL Normal 0.0-0.8 [facility] Comment on above: Performed By: #### B NP3, LACT3, CMP3, TROPN, PT, HEMOG #### [facility] [address] [place] [address] Monocytes/100 WBC (Bld) 6.0 % Normal 2.0-10.0 [facility] Comment on above: Performed By: #### B NP3, LACT3, CMP3, TROPN, PT, HEMOG #### [facility] [address] [place] [address] Platelet mean volume (Bld) [Entitic vol] 8.7 fL Normal 7.4-10.4 [facility] Comment on above: Performed By: #### B NP3, LACT3, CMP3, TROPN, PT, HEMOG #### [facility] [address] [place] [address] Platelets (Bld) [#/Vol] 302 10*3/uL Normal 140-440 [facility] Comment on above: Performed By: #### B NP3, LACT3, CMP3, TROPN, PT, HEMOG #### [facility] [address] [place] [address] RBC (Bld) [#/Vol] 4.09 10*6/uL Normal 3.80-5.20 [facility] Comment on above: Performed By: #### B NP3, LACT3, CMP3, TROPN, PT, HEMOG #### [facility] [address] [place] [address] WBC (Bld) [#/Vol] 6.5 10*3/uL Normal 3.6-10.7 [facility] Comment on above: Performed By: #### B NP3, LACT3, CMP3, TROPN, PT, HEMOG #### [facility] [address] [place] [address] Lactic Acidon 06-17-2021 Lactate [Moles/Vol] 1.3 mmol/L Normal 0.7-2.0 [facility] Comment on above: Performed By: #### B NP3, LACT3, CMP3, TROPN, PT, HEMOG #### [facility] [address] [place] [address] Lactic Acid, PlasmaOrdered B y: Jesus Hill on 06-17-2021 Lactate [Moles/Vol] 1.3 mmol/L 0.7 - 2. 0 mmol/L [facility] Work Phone: Test Performed by [facility], [address] [place] [address] [facility] Work Phone: [phone] [facility] Work Phone: No Panel InformationOrdered By: Jesusnaseem Hill on 06-17-2021 Test Performed by [facility], [facility] [address] [place] [address] [facility] Work Phone: [facility] Work Phone: Interpretation and review of laboratory results Abnormal [facility] Work Phone: Test Performed by [facility], [facility] [address] [place] [address] [facility] Work Phone: [facility] Work Phone: Procalcitoninon 06-17-2021 Interpretation See Below Normal [facility] Comment on above: Result Comment: PCT <0.50 = Low risk of severe sepsis and/or septic shock. PCT >2.00 = High risk of severe sepsis and/or septic shock. Performed By: #### B NP3, LACT3, CMP3, TROPN, PT, HEMOG #### [facility] [address] [place] [address] Prothrombin Timeon INR 1.0 Normal 0.9-1.1 [facility] Comment on above: Result Comment: Lul mmended Anticoagulant Therapy: SEE BELOW ----- INR of 2.0 - 3.0 : - Prophylaxis of Venous Thrombosis (high-risk surgery) - Treatment of Venous Thrombosis - Treatment of Pulmonary Embolism (Includes tissue heart valves, Acute Myocardial Infarction to prevent systemic embolism, Valvular Heart Disease, and Atrial Fibrillation) ----- INR of 2.5 - 3.5 : - Mechanical Prosthetic Valves (high risk) - If oral anticoagulant therapy is used to prevent Myocardial Infarction Performed By: #### B NP3, LACT3, CMP3, TROPN, PT, HEMOG #### [facility] [address] [place] [address] Prothrombin TimeOrdered By: Jesus Hill on 06-17-2021 PT Coag (PPP) [Time] 11.1 s Normal 9.0-12.0 [facility] Work Phone: Comment on above: . Result Comment: . Performed By: #### B NP3, LACT3, CMP3, TROPN, PT, HEMOG #### [facility] [address] [place] [address] Protime-INROrdered By: Ruben Hill on 06-17-2021 INR Coag (Bld) [Relative time] 1.0 {INR} [facility] Work Phone: Comment on above: Recommended Anticoag ulant Therapy: SEE BELOW ----- INR of 2.0 - 3.0 : - Prophylaxis of Venous Thrombosis (high-risk surgery) - Treatment of Venous Thrombosis - Treatment of Pulmonary Embolism (Includes tissue heart valves, Acute Myocardial Infarction to prevent systemic embolism, Valvular Heart Disease, and Atrial Fibrillation) ----- INR of 2.5 - 3.5 : - Mechanical Prosthetic Valves (high risk) - If oral anticoagulant therapy is used to prevent Myocardial Infarction TroponinOrdered By: Brady brown on 06-17-2021 Interpretation and review of laboratory results Abnormal [facility] Work Phone: Troponin I.cardiac [Mass/Vol] 0.192 ng/mL High 0.000 - 0.034 ng/mL [facility] Work Phone: Comment on above: . Test Performed by [facility], [address] [place] [address] [facility] Work Phone: [facility] Work Phone: TroponinOrdered By: Jesus moore on 06-17-2021 Troponin I.cardiac [Mass/Vol] 0.250 ng/mL High 0.000 - 0.034 ng/mL [facility] Work Phone: Comment on above: . Troponin Ion 06-17-2021 Troponin I.cardiac [Mass/Vol] 0.192 ng/mL High 0.000-0.03 4 [facility] Comment on above: Result Comment: . Performed By: #### B NP3, LACT3, CMP3, TROPN, PT, HEMOG #### [facility] [address] [place] [address] Troponin I.cardiac [Mass/Vol] 0.250 ng/mL High 0.000-0.03 4 [facility] Comment on above: Result Comment: . Performed By: #### B NP3, LACT3, CMP3, TROPN, PT, HEMOG #### [facility] [address] [place] [address] Vit D 25-OH, Totalon 021 Vit D 25-OH, Total < 13 Low 30-100 [facility] Comment on above: Result Comment: Ther apy is based on measurement of Total 25-OHD with the following classification levels: Less than 20 ng/mL: Indicative of Vit D deficiency 20-30 ng/mL: Suggests Vit D insufficiency Optimal: Greater than or equal to 30 ng/mL Test performed by [employer], measuring Total Vitamin D, not individual fractions. Performed By: #### B NP3, LACT3, CMP3, TROPN, PT, HEMOG #### [facility] [address] [place] [address] Vitamin D 25 HydroxyOrdered By: Jesus Hill on 06-17-2021 Interpretation and review of laboratory results Abnormal [facility] Work Phone: Vit D, 25-Hydroxy <13 Low 30 - 100 ng/mL [facility] Work Phone: [phone] Comment on above: Therapy is based on measurement of Total 25-OHD with the following classification levels: Less than 20 ng/mL: Indicative of Vit D deficiency 20-30 ng/mL: Suggests Vit D insufficiency Optimal: Greater than or equal to 30 ng/mL Test performed by [employer], measuring Total Vitamin D, not individual fractions. Test Performed by [facility], [address] [place], [place], [place] [address] [facility] Work Phone: [phone] [facility] Work Phone: [phone] C-Reactive Proteinon 021 CRP [Mass/Vol] 21.0 mg/L High 0.0-9.9 [facility] Comment on above: Result Comment: . Performed By: #### B NP3, LACT3, CMP3, TROPN, PT, HEMOG #### [facility] [facility] [address] [place] [address] C-Reactive ProteinOrdered By : [facility] on 06-16-2021 CRP [Mass/Vol] 21 mg/L High 0.0 - 9.9 mg/L [email or web address] Work Phone: Comment on above: . D-Dimer, Innovanceon 021 D-Dimer, Innovance 0.69 mg/L High <0.19-0.50 [facility] Comment on above: Result Comment: Inno summers D-Dimer values of <0.50 mg/L FEU can be used in combination with a pre-test probability model (e.g. Well's) to exclude pulmonary embolism (PE) disease, as well as an aid in the diagnosis of deep vein thrombosis (DVT). Performed By: #### B NP3, LACT3, CMP3, TROPN, PT, HEMOG #### [facility] [facility] [address] [place] [address] D-Dimer, QuantitativeOrdered By: [facility] on 06-16-2021 D-Dimer, Quant 0.69 mg/L High <0.19 - 0.50 [facility] Work Phone: Comment on above: [employer] D-Dimer va lues of <0.50 mg/L FEU can be used in combination with a pre-test probability model (e.g. Well's) to exclude pulmonary embolism (PE) disease, as well as an aid in the diagnosis of deep vein thrombosis (DVT). Interpretation and review of laboratory results Abnormal [facility] Work Phone: Test Performed by [facility], [address] [place], [place] [address] [facility] Work Phone: 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 Work Phone: [place], [facility] Incoming Cardiology Results From [facility] - 06/16/2021 8:16 AM EDT [facility] Test Date: 2021-06-15 Pat Name: ALESSIO MASCORRO Department: 01 Room: 457 Gender: F Senior Support Engineer: JEM : [id number] Requested By: PAIGE BURNHAM Order Number: [id number] Reading MD: Rodney Jane Measurements Intervals [place] Rate: 101 P: 59 CO: 128 QRS: 47 QRSD: 100 T: 150 QT: 352 QTc: 457 Interpretive Statements SINUS TACHYCARDIA MULTIPLE PREMATURE COMPLEXES, VENT & SUPRAVEN PROBABLE ANTEROSEPTAL INFARCT, OLD NONSPECIFIC T ABNORMALITIES, ANT-LAT LEADS Compared to ECG 06/15/2021 20:01:05 Supraventricular tachycardia no longer present Myocardial infarct finding still present T-wave abnormality still present Electronically Signed On 06-16-2021 8:15:31 EDT by Rodney Buck [employer] Work Phone: [employer] Work Phone: [employer] Test Date: 2021-06-15 Pat Name: ALESSIO MASCORRO Department: 01 Room: 457 Gender: F Senior Support Engineer: JEM : [id number] Requested By: PAIGE BURNHAM Order Number: [id number] Reading MD: Rodney Jane Measurements Intervals [place] Rate: 163 P: -3 CO: 124 QRS: 52 QRSD: 96 T: 177 QT: 292 QTc: 481 Interpretive Statements SUPRAVENTRICULAR TACHYCARDIA NONSPECIFIC T ABNORMALITIES, LATERAL LEADS Compared to ECG 06/14/2021 10:29:02 Myocardial infarct finding now present Sinus tachycardia no longer present Atrial premature complex(es) no longer present T-wave abnormality still present Electronically Signed On 06-16-2021 8:15:14 EDT by Rodney Right Skills Work Phone: [place], [employer] Incoming Cardiology Results From [facility] - 06/16/2021 8:16 AM EDT [employer] Test Date: 2021-06-15 Pat Name: ALESSIO MASCORRO Department: 01 Room: 457 Gender: F Senior Support Engineer: JEM : [id number] Requested By: PAIGE BURNHAM Order Number: [id number] Reading MD: Rodney Jane Measurements Intervals [place] Rate: 163 P: -3 CO: 124 QRS: 52 QRSD: 96 T: 177 QT: 292 QTc: 481 Interpretive Statements SUPRAVENTRICULAR TACHYCARDIA NONSPECIFIC T ABNORMALITIES, LATERAL LEADS Compared to ECG 06/14/2021 10:29:02 Myocardial infarct finding now present Sinus tachycardia no longer present Atrial premature complex(es) no longer present T-wave abnormality still present Electronically Signed On 06-16-2021 8:15:14 EDT by Rodney Right [employer] Work Phone: [facility] Work Phone: Ferritinon 06-16-2021 Ferritin [Mass/Vol] 204 ng/mL Normal 11-264 [facility] Comment on above: Performed By: #### B NP3, LACT3, CMP3, TROPN, PT, HEMOG #### [facility] [address] [place] [address] FerritinOrdered By: Jesus moore on 06-16-2021 Ferritin [Mass/Vol] 204 ng/mL 11 - 264 ng/mL [facility] Work Phone: Test Performed by [facility], [address] [place], [place] [address] [facility] Work Phone: [facility] Work Phone: LDHon 06-16-2021 LDH 313 U/L High 120-246 [facility] Comment on above: Performed By: #### B NP3, LACT3, CMP3, TROPN, PT, HEMOG #### [facility] [address] [place] [address] Lactate DehydrogenaseOrdered By: Jesus Hill on 06-16-2021 LD 313 U/L High 120 - 246 U/L [facility] Work Phone: No Panel InformationOrdered By: Jesus Hill on 06-16-2021 Interpretation and review of laboratory results Abnormal [facility] Work Phone: Test Performed by [facility], [address] [place] [address] [facility] Work Phone: [facility] Work Phone: Procalcitoninon 06-16-2021 Procalcitonin 0.24 ng/mL High 0.00-0.09 [facility] Comment on above: Performed By: #### B NP3, LACT3, CMP3, TROPN, PT, HEMOG #### [facility] [address] [place] [address] Interpretation See Below Normal [facility] Comment on above: Result Comment: PCT <0.50 = Low risk of severe sepsis and/or septic shock. PCT >2.00 = High risk of severe sepsis and/or septic shock. Performed By: #### B NP3, LACT3, CMP3, TROPN, PT, HEMOG #### [facility] [address] [place] [address] ProcalcitoninOrdered By: Keisha Hill on 06-16-2021 Interpretation See Below [employer] Work Phone: Comment on above: PCT <0.50 = Low risk of severe sepsis and/or septic shock. PCT >2.00 = High risk of severe sepsis and/or septic shock. Interpretation and review of laboratory results Abnormal [employer] Work Phone: Procalcitonin 0.24 ng/mL High 0.00 - 0.09 ng/mL [email or web address] Work Phone: Test Performed by [facility], [address] [place] [address] [employer] Work Phone: [employer] Work Phone: Brain Natriuretic PeptideOrd ered By: Paige Burnham on 06-15-2021 Interpretation and review of laboratory results Abnormal [facility] Work Phone: Natriuretic peptide B (Bld) [Mass/Vol] 4790 pg/mL High 0 - 125 pg/mL [employer] Work Phone: CR Chest Portableon 06-15-20 21 CR Chest Portable Patient Name: ALESSIO MASCORRO Diagnostic Radiology ACCESSION EXAM DATE/TIME PROCEDURE ORDERING PROVIDER [id number] 06/15/2021 20:35 EDT CR Chest Portable [id number] PAIGE NOLAND CPT code 41512 Reason For Exam (CR Chest Portable) Dyspnea Report SINGLE FRONTAL VIEW OF THE CHEST CLINICAL INDICATION: Dyspnea TECHNIQUE: Single frontal view of the chest COMPARISON: 06/14/2021 FINDINGS: Mild cardiac enlargement. Vascular congestion with interstitial edema, worse than on the prior study. IMPRESSION: 1. Worsening pulmonary vascular congestion and interstitial edema. Report Dictated on Workstation: SHELL Final Dictating Physician: MD RODRIGUEZ JOHN R Signed Date and Time: 06/15/2021 9:05 pm Signed by: MD RODRIGUEZ JOHN R Transcribed Date and Time: 06/15/2021 9:06 Normal [facility] CTA CHEST W WO CONTRASTOrder ed By: Paige Burnham on 06-15-2021 Patient Name: ALESSIO MASCORRO Computed Tomography ACCESSION EXAM DATE/TIME PROCEDURE ORDERING PROVIDER [id number] 06/15/2021 21:15 EDT CTA Chest w/ + w/o [id number] LESTER CPT code 20761 Q9967 Reason For Exam (CTA Chest w/ [...] R Transcribed Date and Time: 06/15/2021 9:24 [facility] Work Phone: [facility], [facility] Incoming Radiology Results From [facility] - 06/15/2021 9:24 PM EDT Patient Name: ALESSIO MASCORRO Computed Tomography ACCESSION EXAM DATE/TIME PROCEDURE ORDERING PROVIDER [id number] 06/15/2021 21:15 EDT CTA Chest w/ + w/o [id number] LESTER CPT code 28936 Q9967 Reason For Exam (CTA Chest w/ [...] R Transcribed Date and Time: 06/15/2021 9:24 [facility] Work Phone: [facility] Work Phone: CTA Chest w/ + w/o Contrasto n 06-15-2021 CTA Chest w/ + w/o Contrast [facility]: [id number] Computed Tomography ACCESSION EXAM DATE/TIME PROCEDURE ORDERING PROVIDER [id number] 06/15/2021 21:15 EDT CTA Chest w/ + w/o [id number] Lesly NOLAND CPT code 64372 Q9967 Reason For Exam (CTA Chest w/ [...] of COVID-19. Report Dictated on Workstation: SHELL Final Dictating Physician: MD RODRIGUEZ JOHN R Signed Date and Time: 06/15/2021 9:23 pm Signed by: MD RODRIGUEZ JOHN R Transcribed Date and Time: 06/15/2021 9:24 Normal [facility] Comp Metabolic Panelon 06-15 Calcium [Mass/Vol] 9.0 mg/dL Normal 8.4-10.4 [facility] Comment on above: Performed By: #### B NP3, LACT3, CMP3, TROPN, PT, HEMOG #### [facility] [address] [place] [address] ALP [Catalytic activity/Vol] 168 U/L High 38-126 [facility] Comment on above: Performed By: #### B NP3, LACT3, CMP3, TROPN, PT, HEMOG #### [facility] [address] [place] [address] ALT [Catalytic activity/Vol] 32 U/L Normal 0-34 [facility] Comment on above: Result Comment: The ALT test is performed by an updated assay method. Please note that the reference intervals have been changed and are now sex specific. Performed By: #### B NP3, LACT3, CMP3, TROPN, PT, HEMOG #### [facility] [address] [place] [address] Anion gap [Moles/Vol] 6 mmol/L Normal 3-13 [facility] Comment on above: Performed By: #### B NP3, LACT3, CMP3, TROPN, PT, HEMOG #### [facility] [address] [place] [address] AST [Catalytic activity/Vol] 86 U/L High 15-46 [facility] Comment on above: Performed By: #### B NP3, LACT3, CMP3, TROPN, PT, HEMOG #### [facility] [address] [place] [address] Bilirubin [Mass/Vol] 0.2 mg/dL Normal 0.2-1.3 [facility] Comment on above: Performed By: #### B NP3, LACT3, CMP3, TROPN, PT, HEMOG #### [facility] [address] [place] [address] CO2 [Moles/Vol] 29 mmol/L Normal 22-30 [facility] Comment on above: Performed By: #### B NP3, LACT3, CMP3, TROPN, PT, HEMOG #### [facility] [address] [place] [address] Creatinine [Mass/Vol] 0.67 mg/dL Normal 0.52-1.25 [facility] Comment on above: Performed By: #### B NP3, LACT3, CMP3, TROPN, PT, HEMOG #### [facility] [address] [place] [address] eGFR OTHER > 90.0 Normal >60 [facility] Comment on above: Result Comment: KDIG O guidelines provide the following GFR categories: Stage GFR(ml/min/1.73 m2) Terms G1 >=90 Normal or high G2 60-89 Mildly decreased* G3a 45-59 Mildly to moderately decreased G3b 30-44 Moderately to severely decreased G4 15-29 Severely decreased G5 <15 Kidney failure *Relative to young adult level. In the absence of evidence of kidney damage, neither GFR category G1 nor G2 fulfill the criteria for CKD. The CKD-EPI equation is validated in individuals 18 years of age and older. Currently the best equation for estimating glomerular filtration rate (GFR) from serum creatinine in children is the Bedside Ziegler equation. It is less accurate in patients with extremes of muscle mass, restriction of dietary protein, ingestion of creatine, extra-renal metabolism of creatinine, or treatment with medications that affect renal tubular creatinine secretion. Performed By: #### B NP3, LACT3, CMP3, TROPN, PT, HEMOG #### [facility] [address] [place] [address] GFR/1.73 sq M.predicted among blacks MDRD (S/P/Bld) [Vol rate/Area] mL/min/{1.73_m2} Normal >60 [facility] Comment on above: Performed By: #### B NP3, LACT3, CMP3, TROPN, PT, HEMOG #### [facility] [address] [place] [address] Glucose [Mass/Vol] 135 mg/dL High 70-100 [facility] Comment on above: Performed By: #### B NP3, LACT3, CMP3, TROPN, PT, HEMOG #### [facility] [address] [place] [address] Protein [Mass/Vol] 6.9 g/dL Normal 6.3-8.2 [facility] Comment on above: Performed By: #### B NP3, LACT3, CMP3, TROPN, PT, HEMOG #### [facility] [address] [place] [address] Urea nitrogen [Mass/Vol] 19 mg/dL Normal 9-20 [facility] Comment on above: Performed By: #### B NP3, LACT3, CMP3, TROPN, PT, HEMOG #### [facility] [address] [place] [address] Potassium [Moles/Vol] 4.0 mmol/L Normal 3.5-5.1 [facility] Comment on above: Performed By: #### B NP3, LACT3, CMP3, TROPN, PT, HEMOG #### [facility] [address] [place] [address] Albumin [Mass/Vol] 3.6 g/dL Normal 3.5-5.0 [facility] Comment on above: Performed By: #### B NP3, LACT3, CMP3, TROPN, PT, HEMOG #### [facility] [address] [place] [address] Chloride [Moles/Vol] 106 mmol/L Normal 98-107 [facility] Comment on above: Performed By: #### B NP3, LACT3, CMP3, TROPN, PT, HEMOG #### [facility] [address] [place] [address] Sodium [Moles/Vol] 141 mmol/L Normal 135-145 [facility] Comment on above: Performed By: #### B NP3, LACT3, CMP3, TROPN, PT, HEMOG #### [facility] [address] [place] [address] Comprehensive Metabolic Pane lOrdered By: Paige Burnham on 06-15-2021 Albumin [Mass/Vol] 3.6 g/dL 3.5 - 5.0 g/dL [email or web address] Work Phone: [phone] ALP (Bld) [Catalytic activity/Vol] 168 U/L High 38 - 126 U/L [facility] Work Phone: [phone] ALT [Catalytic activity/Vol] 32 U/L 0 - 34 U/L [email or web address] Work Phone: Comment on above: The ALT test is perf ormed by an updated assay method. Please note that the reference intervals have been changed and are now sex specific. Anion gap [Moles/Vol] 6 mmol/L 3 - 13 mmol/L [email or web address] Work Phone: [phone] AST [Catalytic activity/Vol] 86 U/L High 15 - 46 U/L [facility] Work Phone: [phone] Bilirubin [Mass/Vol] 0.2 mg/dL 0.2 - 1 .3 mg/dL [facility] Work Phone: [phone] Calcium [Mass/Vol] 9.0 mg/dL 8.4 - 10. 4 mg/dL [facility] Work Phone: [phone] Chloride [Moles/Vol] 106 mmol/L 98 - 10 7 mmol/L [facility] Work Phone: [phone] CO2 [Moles/Vol] 29 mmol/L 22 - 30 mmol/L [facility] Work Phone: [phone] Creatinine [Mass/Vol] 0.67 mg/dL 0.52 - 1.25 mg/dL [email or web address] Work Phone: [phone] EGFR IF NonAfrican Citizen Of [place] >90.0 >60 mL/min [email or web address] Work Phone: [phone] Comment on above: KDIGO guidelines pro vide the following GFR categories: Stage GFR(ml/min/1.73 m2) Terms G1 >=90 Normal or high G2 60-89 Mildly decreased* G3a 45-59 Mildly to moderately decreased G3b 30-44 Moderately to severely decreased G4 15-29 Severely decreased G5 <15 Kidney failure *Relative to young adult level. In the absence of evidence of kidney damage, neither GFR category G1 nor G2 fulfill the criteria for CKD. The CKD-EPI equation is validated in individuals 18 years of age and older. Currently the best equation for estimating glomerular filtration rate (GFR) from serum creatinine in children is the Bedside Ziegler equation. It is less accurate in patients with extremes of muscle mass, restriction of dietary protein, ingestion of creatine, extra-renal metabolism of creatinine, or treatment with medications that affect renal tubular creatinine secretion. Free PSA/Total PSA [Mass fraction] 6.9 g/dL 6.3 - 8.2 g/dL [facility] Work Phone: GFR/1.73 sq M.predicted among blacks MDRD (S/P/Bld) [Vol rate/Area] mL/min/{1.73_m2} >60 mL/min [facility] Work Phone: Glucose [Mass/Vol] 135 mg/dL High 70 - 100 mg/dL [facility] Work Phone: Interpretation and review of laboratory results Abnormal [facility] Work Phone: Potassium [Moles/Vol] 4.0 mmol/L 3.5 - 5.1 mmol/L [facility] Work Phone: Sodium [Moles/Vol] 141 mmol/L 135 - 145 mmol/L [facility] Work Phone: Urea nitrogen (BldV) [Mass/Vol] 19 mg/dL 9 - 20 mg/dL [facility] Work Phone: Test Performed by [facility], [address] [place] [address] Str. [place], [place] [address] [facility] Work Phone: [facility] Work Phone: ED Provider Noteon 1 ED Provider Note B [place] EMERGENCY DEPARTMENT ENCOUNTER Pt Name: Alessio Mascorro Birthdate 1955 Date of evaluation: 06/15/2021 Provider: Paige Burnham, DO CHIEF COMPLAINT Chief Complaint Patient presents with ? Tachycardia HISTORY OF PRESENT ILLNESS (Location/Symptom, Timing/Onset, Context/Setting, Quality, Duration, Modifying Factors, Severity) Note limiting factors. I wore a procedure mask for the entirety of this encounter. Does this patient come from an ECF, SNF, Rehab, [facility] or other Congregate setting: No HPI Alessio Mascorro is a 65 y.o. female who presents to the emergency department with chest discomfort. Patient reports that she was sitting on her couch today when she developed a sensation that her heart was racing as well as chest discomfort. Patient reports that she was recently diagnosed with Covid, approximately 1 week ago. She reports that she has been nauseous at home, denies any episodes of emesis. Patient reports that she called EMS due to this chest discomfort. Patient reports some dyspnea, denies any significant cough or sputum production. Patient was given aspirin and nitroglycerin by EMS. Patient denies any interventions for her diagnosis of Covid. Patient reports that she is on multiple medications, unable to further elaborate however she reports that she is largely noncompliant with her medications. EMS reports SVT with rate of 160?180 in route to the facility, no interventions were given. Patient denies any lower extremity edema, lightheadedness, dizziness or syncope. Patient denies any fevers, chills, diarrhea, constipation, hematochezia or melena. Nursing Notes were reviewed. REVIEW OF SYSTEMS (2+ for level 4; 10+ for level 5) Review of Systems Constitutional: Negative. HENT: Negative. Respiratory: Positive for chest tightness. Negative for cough, shortness of breath and wheezing. Cardiovascular: Positive for chest pain and palpitations. Negative for leg swelling. Gastrointestinal: Negative. Genitourinary: Negative. Musculoskeletal: Negative. Skin: Negative. Neurological: Negative. Hematological: Negative. PAST MEDICAL HISTORY Past Medical History: Diagnosis Date ? Anxiety ? Blood circulation, collateral ? CHF (congestive heart failure) (HCC) ? Depression ? Hypertension SURGICAL HISTORY Past Surgical History: Procedure Laterality Date ? HYSTERECTOMY CURRENT MEDICATIONS Previous Medications LISINOPRIL (PRINIVIL;ZESTRIL) 20 MG TABLET Take 20 mg by mouth 2 times daily (with meals) LORAZEPAM (ATIVAN) 1 MG TABLET Take 1 mg by mouth 2 times daily. ALLERGIES Patient has no known allergies. FAMILY HISTORY History reviewed. No pertinent family history. SOCIAL HISTORY Social History Socioeconomic History ? Marital status: Spouse name: None ? Number of children: None ? Years of education: None ? Highest education level: None Occupational History ? None Tobacco Use ? Smoking status: Current Every Day Smoker Packs/day: 0.50 Types: Cigarettes ? Smokeless tobacco: Current User Substance and Sexual Activity ? Alcohol use: Not Currently ? Drug use: None ? Sexual activity: None Other Topics Concern ? None Social History Narrative ? None Social Determinants of Health Financial Resource Strain: ? Difficulty of Paying Living Expenses: Food Insecurity: ? Worried About Running Out of Food in the Last Year: ? Ran Out of Food in the Last Year: Transportation Needs: ? Lack of Transportation (Medical): ? Lack of Transportation (Non-Medical): Physical Activity: ? Days of Exercise per Week: ? Minutes of Exercise per Session: Stress: ? Feeling of Stress : Social Connections: ? Frequency of Communication with Friends and Family: ? Frequency of Social Gatherings with Friends and Family: ? Attends Sikhism Services: ? Active Member of Clubs or Organizations: ? Attends Club or Organization Meetings: ? Marital Status: Intimate Partner Violence: ? Fear of Current or Ex-Partner: ? Emotionally Abused: ? Physically Abused: ? Sexually Abused: SCREENINGS PHYSICAL EXAM (up to 7 for level 4, 8 or more for level 5) ED Triage Vitals [06/15/212006] BP Temp Temp Source Pulse Resp SpO2 Height Weight (!) 160/126 98.1 ?F (36.7 ?C) Temporal 163 18 93 % 5' 6 (1.676 m) 160 lb (72.6 kg) GENERAL APPEARANCE: Awake and alert. Cooperative. Patient appears to feel unwell, lying in bed. HEAD: Normocephalic. Atraumatic. EYES: EOM's grossly intact. Sclera anicteric. ENT: Mucous membranes are tacky. Tolerates saliva. No trismus. NECK: Supple. No meningismus. Trachea midline. HEART: Regular rhythm, tachycardic. Radial pulses 2+. LUNGS: Respirations unlabored. CTAB ABDOMEN: Soft. Non-tender. No guarding, rigidity or rebound. No distention. Sanchez's negative. No McBurney's point tenderness. EXTREMITIES: No acute deformities. SKIN: Warm and dry. NEUROLO (more content not included)... Normal [facility] Hemogramon 06-15-2021 Erythrocyte distribution width (RBC) [Ratio] 13.8 % Normal 11.5-14.5 [facility] Comment on above: Performed By: #### B NP3, LACT3, CMP3, TROPN, PT, HEMOG #### [facility] [address] [place] [address] Hematocrit (Bld) [Volume fraction] 41.8 % Normal 35.0-47.0 [facility] Comment on above: Performed By: #### B NP3, LACT3, CMP3, TROPN, PT, HEMOG #### [facility] [address] [place] [address] Hemoglobin (Bld) [Mass/Vol] 13.9 g/dL Normal 11.7-16.0 [facility] Comment on above: Performed By: #### B NP3, LACT3, CMP3, TROPN, PT, HEMOG #### [facility] [address] [place] [address] MCH (RBC) [Entitic mass] 31.0 pg Normal 26.0-34.0 [facility] Comment on above: Performed By: #### B NP3, LACT3, CMP3, TROPN, PT, HEMOG #### [facility] [address] [place] [address] MCHC 33.2 % Normal 32.0-36.0 [facility] Comment on above: Performed By: #### B NP3, LACT3, CMP3, TROPN, PT, HEMOG #### [facility] [address] [place] [address] MCV (RBC) [Entitic vol] 93.4 fL Normal 79.0-98.0 [facility] Comment on above: Performed By: #### B NP3, LACT3, CMP3, TROPN, PT, HEMOG #### [facility] [address] [place] [address] Platelet mean volume (Bld) [Entitic vol] 8.7 fL Normal 7.4-10.4 [facility] Comment on above: Performed By: #### B NP3, LACT3, CMP3, TROPN, PT, HEMOG #### [facility] [address] [place] [address] Platelets (Bld) [#/Vol] 257 10*3/uL Normal 140-440 [facility] Comment on above: Performed By: #### B NP3, LACT3, CMP3, TROPN, PT, HEMOG #### [facility] [address] [place] [address] RBC (Bld) [#/Vol] 4.47 10*6/uL Normal 3.80-5.20 [facility] Comment on above: Performed By: #### B NP3, LACT3, CMP3, TROPN, PT, HEMOG #### [facility] [address] [place] [address] WBC (Bld) [#/Vol] 7.0 10*3/uL Normal 3.6-10.7 [facility] Comment on above: Performed By: #### B NP3, LACT3, CMP3, TROPN, PT, HEMOG #### [facility] [address] [place] [address] Hemogram (CBC)Ordered By: Alfred Burnham on 06-15-2021 Hematocrit (Bld) [Volume fraction] 41.8 % 35.0 - 47.0 % [facility] Work Phone: [phone] Hemoglobin.gastrointesti nal spec 1 Ql (Stl) 13.9 g/dL 11.7 - 16.0 g/dL [facility] Work Phone: [phone] MCH (RBC) [Entitic mass] 31.0 pg 26. 0 - 34.0 pg [facility] Work Phone: [phone] MCHC (RBC) [Mass/Vol] 33.2 % 32.0 - 36.0 % [facility] Work Phone: [phone] MCV (RBC) [Entitic vol] 93.4 fL 79.0 - 98.0 fL [facility] Work Phone: [phone] Platelet distribution width (Bld) [Ratio] 13.8 % 11.5 - 14.5 % [facility] Work Phone: [phone] Platelet mean volume (Bld) [Entitic vol] 8.7 fL 7.4 - 10.4 fL [facility] Work Phone: [phone] Platelets (Bld) [#/Vol] 257 10*3/uL 140 - 440 10*3/uL [facility] Work Phone: [phone] RBC (Bld) [#/Vol] 4.47 10*6/uL 3.80 - 5.20 10*6/uL [facility] Work Phone: [phone] WBC (Bld) [#/Vol] 7.0 10*3/uL 3.6 - 10.7 10*3/uL [facility] Work Phone: [phone] Test Performed by [facility] [place] [facility], [address] [place], [place] [address] [facility] Work Phone: [phone]) [facility] Work Phone: [phone] [employer] [employer], URINEon 06-15 [facility] [employer], URINE Not detected Normal [facility] Comment on above: Performed By: #### B NP3, LACT3, CMP3, TROPN, PT, HEMOG #### [facility] [address] [place] [address] Lactic Acidon 06-15-2021 Lactate [Moles/Vol] 1.1 mmol/L Normal 0.7-2.0 [facility] Comment on above: Performed By: #### B NP3, LACT3, CMP3, TROPN, PT, HEMOG #### [employer] [address] [place] [address] Lactic Acid, PlasmaOrdered B y: Paige Burnham on 06-15-2021 Lactate [Moles/Vol] 1.1 mmol/L 0.7 - 2. 0 mmol/L [facility] Work Phone: [phone] Test Performed by [facility] [place] [facility], [address] [place], [place] [address] [facility] Work Phone: [phone] [facility] Work Phone: [phone] NT pro BNPon 06-15-2021 Natriuretic peptide B (Bld) [Mass/Vol] 4790 pg/mL High 0-125 [facility] Comment on above: Performed By: #### B NP3, LACT3, CMP3, TROPN, PT, HEMOG #### [employer] [address] [place] [address] No Panel InformationOrdered By: Paige Burnham on 06-15-2021 Test Performed by [facility], [address] [place], [place] [address] [facility] Work Phone: [phone] [facility] Work Phone: [phone] POCT VenousOrdered By: Jordana Burnham on 06-15-2021 Base Excess, Obey 2.6 mmol/L -3.0 - 3.0 mmol/L [facility] Work Phone: [phone] HCO3 (Bld) [Moles/Vol] 26.7 mmol/L 23.0 - 27.0 mmol/L [facility] Work Phone: [phone] Interpretation and review of laboratory results Abnormal [facility] Work Phone: [phone] Oxygen saturation in Blood 88.5 % High 60.0 - 80.0 % [facility] Work Phone: [phone] pCO2, Obey 38.5 mm[Hg] Low 40.0 - 55.0 mm[Hg] [facility] Work Phone: [phone] pH, Oeby 7.448 High [facility] Work Phone: [phone] pO2, Obey 53.0 mm[Hg] High 30.0 - 50.0 mm[Hg] [facility] Work Phone: [phone] TC02 (Calc), Obey 27.8 mmol/L 24.0 - 28.0 mmol/L [facility] Work Phone: [phone] Comment on above: Performed by CLIA ID : [id number] [place], [place] Test Performed by [facility] [place] [facility], [address] [place], [place] [address] [facility] Work Phone: [phone] [facility] Work Phone: [phone] Prothrombin Timeon 1 INR 1.0 Normal 0.9-1.1 [facility] Comment on above: Result Comment: Lul mmended Anticoagulant Therapy: SEE BELOW ----- INR of 2.0 - 3.0 : - Prophylaxis of Venous Thrombosis (high-risk surgery) - Treatment of Venous Thrombosis - Treatment of Pulmonary Embolism (Includes tissue heart valves, Acute Myocardial Infarction to prevent systemic embolism, Valvular Heart Disease, and Atrial Fibrillation) ----- INR of 2.5 - 3.5 : - Mechanical Prosthetic Valves (high risk) - If oral anticoagulant therapy is used to prevent Myocardial Infarction Performed By: #### B NP3, LACT3, CMP3, TROPN, PT, HEMOG #### [facility] [address] [place] [address] PT Coag (PPP) [Time] 10.7 s Normal 9.0-12.0 [facility] Comment on above: Result Comment: . Performed By: #### B NP3, LACT3, CMP3, TROPN, PT, HEMOG #### [facility] [address] [place] [address] Protime-INROrdered By: Jordana Burnham on 06-15-2021 INR Coag (Bld) [Relative time] 1.0 {INR} [employer] Work Phone: Comment on above: Recommended Anticoag ulant Therapy: SEE BELOW ----- INR of 2.0 - 3.0 : - Prophylaxis of Venous Thrombosis (high-risk surgery) - Treatment of Venous Thrombosis - Treatment of Pulmonary Embolism (Includes tissue heart valves, Acute Myocardial Infarction to prevent systemic embolism, Valvular Heart Disease, and Atrial Fibrillation) ----- INR of 2.5 - 3.5 : - Mechanical Prosthetic Valves (high risk) - If oral anticoagulant therapy is used to prevent Myocardial Infarction PT Coag (PPP) [Time] 10.7 s 9.0 - 1 2.0 s [employer] Work Phone: Comment on above: . Test Performed by [facility], [address] [place], [place] [address] [employer] Work Phone: [employer] Work Phone: STREP PNEUMO ANTIGEN, URINEo n 06-15-2021 STREP PNEUMO ANTIGEN, URINE Not detected Normal [facility] Comment on above: Performed By: #### B NP3, LACT3, CMP3, TROPN, PT, HEMOG #### [facility] [address] [place] [address] Troponin Ion 06-15-2021 Troponin I.cardiac [Mass/Vol] 0.029 ng/mL Normal 0.000-0.03 4 [facility] Comment on above: Result Comment: . Performed By: #### B NP3, LACT3, CMP3, TROPN, PT, HEMOG #### [facility] [address] [facility] [place] [address] Troponin [id number] By: Jordana Burnham on 06-15-2021 Troponin I.cardiac [Mass/Vol] 0.029 ng/mL 0.000 - 0.034 ng/mL [facility] Work Phone: Comment on above: . Venous Blood Gas Respiratory on 06-15-2021 Base Excess 2.6 mmol/L Normal -3.0-3.0 [facility] Comment on above: Performed By: #### B NP3, LACT3, CMP3, TROPN, PT, HEMOG #### [facility] [address] [place] [address] CO2 [Moles/Vol] 27.8 mmol/L Normal 24.0-28.0 [facility] Comment on above: Result Comment: Perf ormed by CLIA ID: [id number] [place], [place] Performed By: #### B NP3, LACT3, CMP3, TROPN, PT, HEMOG #### [facility] [address] [facility] [place] [address] HCO3 (Bld) [Moles/Vol] 26.7 mmol/L Normal 23.0-27.0 [facility] Comment on above: Performed By: #### B NP3, LACT3, CMP3, TROPN, PT, HEMOG #### [facility] [address] [place] [address] Oxygen (Bld) [Partial pressure] 53.0 mm[Hg] High 30.0-50.0 [facility] Comment on above: Performed By: #### B NP3, LACT3, CMP3, TROPN, PT, HEMOG #### [facility] [address] [place] [address] Oxygen saturation in Blood 88.5 % High 60.0-80.0 [facility] Comment on above: Performed By: #### B NP3, LACT3, CMP3, TROPN, PT, HEMOG #### [facility] [address] [place] [address] pCO2 38.5 mm[Hg] Low 40.0-55.0 [facility] Comment on above: Performed By: #### B NP3, LACT3, CMP3, TROPN, PT, HEMOG #### [facility] [address] [place] [address] pH 7.448 High 7.330-7.43 0 [facility] Comment on above: Performed By: #### B NP3, LACT3, CMP3, TROPN, PT, HEMOG #### [facility] [address] [place] [address] XR CHEST PORTABLEOrdered By: Paige Burnham on 06-15-2021 Patient Name: ALESSIO MASCORRO Diagnostic Radiology ACCESSION EXAM DATE/TIME PROCEDURE ORDERING PROVIDER [id number] 06/15/2021 20:35 EDT CR Chest Portable [id number] -PAIGE BURNHAM CPT code 39111 Reason For Exam (CR Chest Portable) Dyspnea [...] R Transcribed Date and Time: 06/15/2021 9:06 [facility] Work Phone: [place], [facility] Incoming Radiology Results From [facility] - 06/15/2021 9:06 PM EDT Patient Name: ALESSIO MASCORRO Diagnostic Radiology ACCESSION EXAM DATE/TIME PROCEDURE ORDERING PROVIDER [id number] 06/15/2021 20:35 EDT CR Chest Portable [id number] -PAIGE BURNHAM CPT code 48403 Reason For Exam (CR Chest Portable) Dyspnea [...] R Transcribed Date and Time: 06/15/2021 9:06 [facility] Work Phone: [facility] Work Phone: Basic Metabolic Panelon 10-0 Anion gap [Moles/Vol] 4 mmol/L Normal 3-13 [facility] Comment on above: Performed By: #### PEGGY MOORE, BMP3 #### [facility] [address] [place] [address] Calcium [Mass/Vol] 8.0 mg/dL Low 8.4-10.4 [facility] Comment on above: Performed By: #### PEGGY MOORE, BMP3 #### [facility] [address] [place] [address] CO2 [Moles/Vol] 27 mmol/L Normal 22-30 [facility] Comment on above: Performed By: #### PEGGY MOORE BMP3 #### [facility] [address] [place] [address] Glucose [Mass/Vol] 145 mg/dL High 70-100 [facility] Comment on above: Performed By: #### PEGGY MOORE BMP3 #### [facility] [address] [place] [address] Urea nitrogen [Mass/Vol] 21 mg/dL High 9-20 [facility] Comment on above: Performed By: #### PEGGY MOORE, BMP3 #### [facility] [address] [place] [address] Creatinine [Mass/Vol] 0.80 mg/dL Normal 0.52-1.25 [facility] Comment on above: Performed By: #### T PEGGY SPRING BMP3 #### [facility] [address] [place] [address] GFR/1.73 sq M.predicted among blacks MDRD (S/P/Bld) [Vol rate/Area] 90.0 mL/min/{1.73_m2} Normal >60 [facility] Comment on above: Performed By: #### T PEGGY SPRING, BMP3 #### [facility] [address] [place] [address] GFR/1.73 sq M.predicted among non-blacks MDRD (S/P/Bld) [Vol rate/Area] 77.6 mL/min/{1.73_m2} Normal >60 [facility] Comment on above: Result Comment: KDIG O guidelines provide the following GFR categories: Stage GFR(ml/min/1.73 m2) Terms G1 >=90 Normal or high G2 60-89 Mildly decreased* G3a 45-59 Mildly to moderately decreased G3b 30-44 Moderately to severely decreased G4 15-29 Severely decreased G5 <15 Kidney failure *Relative to young adult level. In the absence of evidence of kidney damage, neither GFR category G1 nor G2 fulfill the criteria for CKD. The CKD-EPI equation is validated in individuals 18 years of age and older. Currently the best equation for estimating glomerular filtration rate (GFR) from serum creatinine in children is the Bedside Ziegler equation. It is less accurate in patients with extremes of muscle mass, restriction of dietary protein, ingestion of creatine, extra-renal metabolism of creatinine, or treatment with medications that affect renal tubular creatinine secretion. Performed By: #### T PEGGY SPRING, BMP3 #### [facility] [address] [place] [address] Chloride [Moles/Vol] 108 mmol/L High 98-107 [facility] Comment on above: Performed By: #### T PEGGY SPRING, BMP3 #### [facility] [address] [place] [address] Potassium [Moles/Vol] 3.8 mmol/L Normal 3.5-5.1 [facility] Comment on above: Performed By: #### T PEGGY SPRING, BMP3 #### [facility] [address] [place] [address] Sodium [Moles/Vol] 138 mmol/L Normal 135-145 [facility] Comment on above: Performed By: #### T CLEMENTINE HEMOG, BMP3 #### [facility] [address] [place] [address] Basic Metabolic PanelOrdered By: Juice Perez on 06-14-2021 Anion gap [Moles/Vol] 4 mmol/L 3 - 13 mmol/L [facility] Work Phone: Calcium [Mass/Vol] 8.0 mg/dL Low 8.4 - 10. 4 mg/dL [facility] Work Phone: Chloride [Moles/Vol] 108 mmol/L High 98 - 10 7 mmol/L [facility] Work Phone: CO2 [Moles/Vol] 27 mmol/L 22 - 30 mmol/L [facility] Work Phone: Creatinine [Mass/Vol] 0.8 mg/dL 0.52 - 1.25 mg/dL [facility] Work Phone: EGFR IF NonAfrican Citizen Of [place] 77.6 mL/min >60 [facility] Work Phone: Comment on above: KDIGO guidelines pro vide the following GFR categories: Stage GFR(ml/min/1.73 m2) Terms G1 >=90 Normal or high G2 60-89 Mildly decreased* G3a 45-59 Mildly to moderately decreased G3b 30-44 Moderately to severely decreased G4 15-29 Severely decreased G5 <15 Kidney failure *Relative to young adult level. In the absence of evidence of kidney damage, neither GFR category G1 nor G2 fulfill the criteria for CKD. The CKD-EPI equation is validated in individuals 18 years of age and older. Currently the best equation for estimating glomerular filtration rate (GFR) from serum creatinine in children is the Bedside Ziegler equation. It is less accurate in patients with extremes of muscle mass, restriction of dietary protein, ingestion of creatine, extra-renal metabolism of creatinine, or treatment with medications that affect renal tubular creatinine secretion. GFR/1.73 sq M.predicted among blacks MDRD (S/P/Bld) [Vol rate/Area] 90.0 mL/min/{1.73_m2} >60 [facility] Work Phone: 1) Glucose [Mass/Vol] 145 mg/dL High 70 - 100 mg/dL [facility] Work Phone: ) Interpretation and review of laboratory results Abnormal [facility] Work Phone: ) Potassium [Moles/Vol] 3.8 mmol/L 3.5 - 5.1 mmol/L [facility] Work Phone: [phone] Sodium [Moles/Vol] 138 mmol/L 135 - 145 mmol/L [facility] Work Phone: [phone] Urea nitrogen (BldV) [Mass/Vol] 21 mg/dL High 9 - 20 mg/dL [facility] Work Phone: 1) Test Performed by [facility], [address] [place], [place] [address] [facility] Work Phone: [facility] Work Phone: 1 C-Reactive Proteinon 021 CRP [Mass/Vol] 47.9 mg/L High 0.0-9.9 [facility] Comment on above: Result Comment: . Performed By: #### B NP3, LACT3, CMP3, TROPN, PT, HEMOG #### [facility] [address] [place] [address] C-Reactive ProteinOrdered By : Brady Beatty on 06-14-2021 CRP [Mass/Vol] 47.9 mg/L High 0.0 - 9.9 mg/L [facility] Work Phone: Comment on above: . Interpretation and review of laboratory results Abnormal [facility] Work Phone: ) Test Performed by [facility], [address] [place], [place] [address] [facility] Work Phone: ) [facility] Work Phone: COVID-19, RapidOrdered By: Nuria Perez on 06-14-2021 SARS-CoV-2 (COVID-19) RNA KAYDEN+probe Ql (Unsp spec) see below [facility] Work Phone: Comment on above: DETECTED Expected Result: Not Detected _ Isothermal nucleic acid amplification performed on the [employer] ID Now System by the [facility] Laboratory Negative results do not preclude SARS-CoV-2 infection and should not be used as the sole basis for treatment or other patient management decisions. This assay was developed by [employer] and distributed under an Emergency Use Authorization (EUA) granted by the FDA for the qualitative detection of SARS-CoV-2 nucleic acid. Provider and patient fact sheets can be found at https://www.fda.gov/media/969450/download and https://www.fda.gov/media/225983/download. Test Performed by [facility], [address] [place], [place] [id number] [place] [address] Work Phone: [facility] Work Phone: CR Chest Portableon 06-14-20 CR Chest Portable Patient Name: ALESSIO MASCORRO Diagnostic Radiology ACCESSION EXAM DATE/TIME PROCEDURE ORDERING PROVIDER [id number] 06/14/2021 11:10 EDT CR Chest Portable [id number] JUICE WESTON CPT code 88508 Reason For Exam (CR Chest Portable) unresponsive Report PORTABLE CHEST (Frontal View) History: Respiratory abnormality, unresponsive Comparison: None available Findings: Frontal portable chest view shows ill-defined right and probably left basilar infiltrates with interstitial prominence of both lungs. The heart is mildly enlarged. There are atherosclerotic calcifications. There is no mediastinal widening or pleural effusion. There is spondylosis. IMPRESSION: Basilar infiltrate with interstitial prominence of both lungs require continued evaluation. Mild cardiac enlargement. Report Dictated on Final Dictating Physician: MD JI, CHERRY Signed Date and Time: 06/14/2021 11:22 am Signed by: MD WORKMAN AHMAD Transcribed Date and Time: 06/14/2021 11:23 Normal [facility] Drugs of Abuseon 06-14-2021 Amphetamines, Ur Positive Normal [facility] Comment on above: Performed By: #### B NP3, LACT3, CMP3, TROPN, PT, HEMOG #### [facility] [address] [place] [address] Phencyclidine (PCP), Ur Negative Normal [facility] Comment on above: Result Comment: The expected value for all of the drugs listed above is Negative. The following drugs or drug groups have been screened for by Immunoassay at the following thresholds: Amphetamine class (1000 ng/mL), Barbiturates (200 ng/mL), Benzodiazepines (200 ng/mL), Cocaine (300 ng/mL), Methadone (300 ng/mL), Opiates (300 ng/mL), Oxycodone (100 ng/mL), and PCP (25 ng/mL). NOTE: These results are for medical treatment only. Analysis performed using non-forensic procedures. POSITIVE results are NOT confirmed by a more specific alternative method unless requested. If confirmation is needed, request confirmation under separate order. Performed By: #### B NP3, LACT3, CMP3, TROPN, PT, HEMOG #### [facility] [address] [place] [address] Methadone, Ur Negative [facility] Comment on above: Performed By: #### B NP3, LACT3, CMP3, TROPN, PT, HEMOG #### [facility] [address] [place] [address] Opiates, Ur Negative [facility] Comment on above: Performed By: #### B NP3, LACT3, CMP3, TROPN, PT, HEMOG #### [facility] [address] [place] [address] Cocaine, Ur Negative [facility] Comment on above: Performed By: #### B NP3, LACT3, CMP3, TROPN, PT, HEMOG #### [facility] [address] [place] [address] Barbiturates, Ur Negative [facility] Comment on above: Performed By: #### B NP3, LACT3, CMP3, TROPN, PT, HEMOG #### [facility] [address] [place] [address] Benzodiazepines, Ur Positive [facility] Comment on above: Performed By: #### B NP3, LACT3, CMP3, TROPN, PT, HEMOG #### [facility] [address] [place] [address] Oxycodone/Oxymorphine,Ur Negative Normal [facility] Comment on above: Performed By: #### B NP3, LACT3, CMP3, TROPN, PT, HEMOG #### [facility] [address] [place] [address] ED Provider Noteon 1 ED Provider Note Emergency Department Encounter [facility] Patient: Alessio Mascorro : 1951 Date of Evaluation: 06/14/2021 ED Provider: Juice Perez, DO Chief Complaint Chief Complaint Patient presents with ? Altered Mental Status [place] I wore appropriate PPE for the entirety of this encounter. Does this patient come from an ECF, SNF, Rehab, [facility] or other Congregate setting: no (If yes to above patient needs a Covid-19 test) Alessio Mascorro is a 69 y.o. female who presents to the emergency department complaining of altered mentation. Per EMS report, family had noticed the patient had altered mentation. They are with her in the room and stepped out. They came back 5 minutes later and found her unresponsive. She is not answering questions appropriately. Family did not have additional history as they do not know the patient's birthdate or medications. ROS: 10 systems reviewed and otherwise acutely negative except as in the [place]. Past History No past medical history on file. No past surgical history on file. Social History Socioeconomic History ? Marital status: Not on file Spouse name: Not on file ? Number of children: Not on file ? Years of education: Not on file ? Highest education level: Not on file Occupational History ? Not on file Tobacco Use ? Smoking status: Not on file Substance and Sexual Activity ? Alcohol use: Not on file ? Drug use: Not on file ? Sexual activity: Not on file Other Topics Concern ? Not on file Social History Narrative ? Not on file Social Determinants of Health Financial Resource Strain: ? Difficulty of Paying Living Expenses: Food Insecurity: ? Worried About Running Out of Food in the Last Year: ? Ran Out of Food in the Last Year: Transportation Needs: ? Lack of Transportation (Medical): ? Lack of Transportation (Non-Medical): Physical Activity: ? Days of Exercise per Week: ? Minutes of Exercise per Session: Stress: ? Feeling of Stress : Social Connections: ? Frequency of Communication with Friends and Family: ? Frequency of Social Gatherings with Friends and Family: ? Attends Sikhism Services: ? Active Member of Clubs or Organizations: ? Attends Club or Organization Meetings: ? Marital Status: Intimate Partner Violence: ? Fear of Current or Ex-Partner: ? Emotionally Abused: ? Physically Abused: ? Sexually Abused: Medications/Allergies Previous Medications No medications on file No Known Allergies Physical Exam ED Triage Vitals [06/14/21 1029] BP Temp Temp Source Pulse Resp SpO2 Height Weight (!) 173/98 99 ?F (37.2 ?C) Oral 114 20 99 % -- -- GENERAL: Somnolent but arousable to voice, nonrebreather in place, mumbling words, intermittently answering questions appropriately EYES: Head exam is unremarkable. No scleral icterus or orbital trauma noted. HEENT: Pupils 2 mm bilaterally. Mucous membranes moist. Nares patent without copious rhinorrhea. No enlarged lymphadenopathy. LUNGS: Lungs are clear to auscultation, without any respiratory distress. CARDIAC: Rhythm is regular. No dysrythmias or murmurs. ABDOMEN: Nontender with no obvious masses, and no peritoneal signs. EXTREMITIES: Non edematous, with no obvious deformities. SKIN: Good color, with no significant rashes. No pallor. NEURO: No obvious neurological deficits, normal sensation and strength bilaterally. Diagnostics Labs: Results for orders placed or performed during the hospital encounter of 06/14/21 POCT Glucose Result Value Ref Range POC Glucose 146 (H) 70 - 100 mg/dL Radiographs: No results found. Procedures/EKG: Sinus tachycardia heart rate 105 bpm. Normal axis. CO, QRS, QT intervals within normal limits. T wave flattening in the lateral leads. No ST elevations or depressions. No STEMI. SCREENINGS ED Course and MDM In brief, Alessio Mascorro is a 69 y.o. female who presented to the emergency department for altered mentation. Vital signs notable for hypoxia which improved with nonrebreather as well as tachycardia. Patient confused on exam. She intermittently follows commands. She intermittently answers questions appropriately. She does have small pupils. We did check a glucose which was within normal limits. Patient has no known medical history. We did attempt treatment with 1 mg IV Narcan. Patient did have significant improvement in her mental state, immediately began asking for Ativan. Explained that we treated her with medication to reverse opiates and she states I do not take any that stuff . Family did arrive at bedside. They explained that patient recently had COVID-19 diagnosis. She was recently evicted from her home and was moving into a nieces home. They were talking to her this morning, left the room for a minute when they came back, she was unresponsive and staring off into space. They are unsure of any medications or medical history. Plan order laboratory work-u (more content not included)... Normal [facility] Glucose,Bedsideon 06-14-2021 Glucose [Mass/Vol] 146 mg/dL High 70-100 [facility] Comment on above: Result Comment: Test performed by glucose meter. Results may be 10%-15% lower than serum/plasma values. (CLIA ID [id number]) Performed By: #### B NP3, LACT3, CMP3, TROPN, PT, HEMOG #### [facility] [address] [place] [address] Hemogramon 06-14-2021 Erythrocyte distribution width (RBC) [Ratio] 14.1 % Normal 11.5-14.5 [facility] Comment on above: Performed By: #### T PEGGY SPRING, BMP3 #### [facility] [address] [place] [address] Hematocrit (Bld) [Volume fraction] 37.8 % Normal 35.0-47.0 [facility] Comment on above: Performed By: #### T PEGGY SPRING, BMP3 #### [facility] [address] [place] [address] Hemoglobin (Bld) [Mass/Vol] 12.4 g/dL Normal 11.7-16.0 [facility] Comment on above: Performed By: #### T PEGGY SPRING, BMP3 #### [facility] [address] [place] [address] MCH (RBC) [Entitic mass] 30.8 pg Normal 26.0-34.0 [facility] Comment on above: Performed By: #### T ROPN, HEMOG, BMP3 #### [facility] [address] [place] [address] MCHC 32.8 % Normal 32.0-36.0 [facility] Comment on above: Performed By: #### T CLEMENTINE HEMOG, BMP3 #### [facility] [address] [place] [address] MCV (RBC) [Entitic vol] 93.9 fL Normal 79.0-98.0 [facility] Comment on above: Performed By: #### T CLEMENTINE HEMOG, BMP3 #### [facility] [address] [place] [address] Platelet mean volume (Bld) [Entitic vol] 9.2 fL Normal 7.4-10.4 [facility] Comment on above: Performed By: #### T CLEMENTINE HEMOG, BMP3 #### [facility] [address] [place] [address] Platelets (Bld) [#/Vol] 184 10*3/uL Normal 140-440 [facility] Comment on above: Performed By: #### T YAAKOV SPRINGOG, BMP3 #### [facility] [address] [place] [address] RBC (Bld) [#/Vol] 4.02 10*6/uL Normal 3.80-5.20 [facility] Comment on above: Performed By: #### T CLEMENTINE HEMOG, BMP3 #### [facility] [address] [place] [address] WBC (Bld) [#/Vol] 6.7 10*3/uL Normal 3.6-10.7 [facility] Comment on above: Performed By: #### T CLEMENTINE HEMOG, BMP3 #### [facility] [address] [place] [address] Hemogram (CBC)Ordered By: Chuy Perez on 06-14-2021 Hematocrit (Bld) [Volume fraction] 37.8 % 35.0 - 47.0 % [facility] Work Phone: Hemoglobin.gastrointesti nal spec 1 Ql (Stl) 12.4 g/dL 11.7 - 16.0 g/dL [facility] Work Phone: 1() MCH (RBC) [Entitic mass] 30.8 pg 26. 0 - 34.0 pg [facility] Work Phone: 1 MCHC (RBC) [Mass/Vol] 32.8 % 32.0 - 36.0 % [facility] Work Phone: 1() MCV (RBC) [Entitic vol] 93.9 fL 79.0 - 98.0 fL [facility] Work Phone: 1 Platelet distribution width (Bld) [Ratio] 14.1 % 11.5 - 14.5 % [facility] Work Phone: ( Platelet mean volume (Bld) [Entitic vol] 9.2 fL 7.4 - 10.4 fL [facility] Work Phone: Platelets (Bld) [#/Vol] 184 10*3/uL 140 - 440 10*3/uL [facility] Work Phone: ) RBC (Bld) [#/Vol] 4.02 10*6/uL 3.80 - 5.20 10*6/uL [facility] Work Phone: ) [phone] WBC (Bld) [#/Vol] 6.7 10*3/uL 3.6 - 10.7 10*3/uL [facility] Work Phone: Test Performed by [facility], [address] [place], [place] [address] [facility] Work Phone: ) [facility] Work Phone: ) Legionella antigen, urineOrd ered By: Brady Beatty on 06-14-2021 LEGIONELLA ANTIGEN Not detected [facility] Work Phone: ) No Panel InformationOrdered By: Brady Beatty on 06-14-2021 Test Performed by [facility], [address] [place] [address] [facility] Work Phone: 1) [facility] Work Phone: ) POCT GlucoseOrdered By: Dust in [place] on 06-14-2021 Glucose [Mass/Vol] 146 mg/dL High 70 - 100 mg/dL [facility] Work Phone: Comment on above: Test performed by gl ucose meter. Results may be 10%-15% lower than serum/plasma values. (CLIA ID [id number]) Interpretation and review of laboratory results Abnormal [facility] Work Phone: Test Performed by [facility], [address], [place], [place] [address] [facility] Work Phone: [phone] [facility] Work Phone: [phone] Procalcitoninon 06-14-2021 Procalcitonin 0.43 ng/mL High 0.00-0.09 [facility] Comment on above: Performed By: #### B NP3, LACT3, CMP3, TROPN, PT, HEMOG #### [facility] [address] [place] [address] Interpretation See Below Normal [facility] Comment on above: Result Comment: PCT <0.50 = Low risk of severe sepsis and/or septic shock. PCT >2.00 = High risk of severe sepsis and/or septic shock. Performed By: #### B NP3, LACT3, CMP3, TROPN, PT, HEMOG #### [facility] [address] [place] [address] ProcalcitoninOrdered By: Judy Beatty on 06-14-2021 Interpretation See Below [facility] Work Phone: Comment on above: PCT <0.50 = Low risk of severe sepsis and/or septic shock. PCT >2.00 = High risk of severe sepsis and/or septic shock. Interpretation and review of laboratory results Abnormal [facility] Work Phone: [phone] Procalcitonin 0.43 ng/mL High 0.00 - 0.09 ng/mL [facility] Work Phone: [phone] Test Performed by [facility], [address] [place] [address] [facility] Work Phone: [phone] [facility] Work Phone: SARS-CoV-2 (LAB DEPT)on SARS-CoV-2 (COVID-19) RNA KAYDEN+probe Ql (Unsp spec) see below Normal [facility] Comment on above: Result Comment: DETE CTED Expected Result: Not Detected _ Isothermal nucleic acid amplification performed on the [employer] System by the [facility] Laboratory Negative results do not preclude SARS-CoV-2 infection and should not be used as the sole basis for treatment or other patient management decisions. This assay was developed by [employer] and distributed under an Emergency Use Authorization (EUA) granted by the [facility] for the qualitative detection of SARS-CoV-2 nucleic acid. Provider and patient fact sheets can be found at https://www.fda.gov/media/374319/download and https://www.fda.gov/media/649714/download. Performed By: #### C VCCL #### [facility] [address] [place] [address] Strep Pneumoniae AntigenOrde red By: Brady Beatty on 06-14-2021 STREP PNEUMONIAE ANTIGEN, URINE Not detected [facility] Work Phone: Troponin Ion 06-14-2021 Troponin I.cardiac [Mass/Vol] 0.029 ng/mL Normal 0.000-0.03 4 [facility] Comment on above: Result Comment: . Performed By: #### T ROPN, HEMOG, BMP3 #### [facility] [address] [place] [address] Troponin [id number] By: Korina Perez on 06-14-2021 Troponin I.cardiac [Mass/Vol] 0.029 ng/mL 0.000 - 0.034 ng/mL [facility] Work Phone: Comment on above: . Test Performed by [facility], [address] [place], [place] [address] [facility] Work Phone: [facility] Work Phone: Urine Drug ScreenOrdered By: Brady Beatty on 06-14-2021 Amphetamines, urine Positive [facility] Work Phone: Barbiturates, Ur Negative [facility] Work Phone: Benzodiazepine Ur Qual Positive [facility] Work Phone: [phone] Cocaine Metabolites, Ur Negative [facility] Work Phone: Methadone, Urine Negative [facility] Work Phone: Opiates, Urine Negative [facility] Work Phone: Oxycodone Screen, Ur Negative [facility] Work Phone: PCP, Urine Negative [facility] Work Phone: Comment on above: The expected value f or all of the drugs listed above is Negative. The following drugs or drug groups have been screened for by Immunoassay at the following thresholds: Amphetamine class (1000 ng/mL), Barbiturates (200 ng/mL), Benzodiazepines (200 ng/mL), Cocaine (300 ng/mL), Methadone (300 ng/mL), Opiates (300 ng/mL), Oxycodone (100 ng/mL), and PCP (25 ng/mL). NOTE: These results are for medical treatment only. Analysis performed using non-forensic procedures. POSITIVE results are NOT confirmed by a more specific alternative method unless requested. If confirmation is needed, request confirmation under separate order. Test Performed by [facility], [address] [place] [address] [facility] Work Phone: [facility] Work Phone: XR CHEST PORTABLEOrdered By: Juice Perez on 06-14-2021 Patient Name: ALESSIO MASCORRO Diagnostic Radiology ACCESSION EXAM DATE/TIME PROCEDURE ORDERING PROVIDER [phone] 06/14/2021 11:10 EDT CR Chest Portable [id number] -JUICE PEREZ CPT code 23696 Reason For Exam (CR Chest Portable) unresponsive Report PORTABLE CHEST (Frontal View) History: Respiratory abnormality, unresponsive Comparison: None available Findings: Frontal portable chest view shows ill-defined right and probably left basilar infiltrates with interstitial prominence of both lungs. The heart is mildly enlarged. There are atherosclerotic calcifications. There is no mediastinal widening or pleural effusion. There is spondylosis. IMPRESSION: Basilar infiltrate with interstitial prominence of both lungs require continued evaluation. Mild cardiac enlargement. Report Dictated on --- Final --- Dictating Physician: EL-MD OVIEDO AHMAD Signed Date and Time: 06/14/2021 11:22 am Signed by: MD WORKMAN AHMAD Transcribed Date and Time: 06/14/2021 11:23 [facility] Work Phone: Tesfaye, Darrell Incoming Radiology Results From [facility] - 06/14/2021 11:23 AM EDT [facility]: [id number]iology ACCESSION EXAM DATE/TIME PROCEDURE ORDERING PROVIDER [id number] 06/14/2021 11:10 EDT CR Chest Portable [id number] -JUICE PEREZ CPT code 93741 Reason For Exam (CR Chest Portable) unresponsive Report PORTABLE CHEST (Frontal View) History: Respiratory abnormality, unresponsive Comparison: None available Findings: Frontal portable chest view shows ill-defined right and probably left basilar infiltrates with interstitial prominence of both lungs. The heart is mildly enlarged. There are atherosclerotic calcifications. There is no mediastinal widening or pleural effusion. There is spondylosis. IMPRESSION: Basilar infiltrate with interstitial prominence of both lungs require continued evaluation. Mild cardiac enlargement. Report Dictated on --- Final --- Dictating Physician: MD WORKMAN AHMAD Signed Date and Time: 06/14/2021 11:22 am Signed by: MD WORKMAN AHMAD Transcribed Date and Time: 06/14/2021 11:23 [facility] Work Phone: [facility] Work Phone: Surgical Tissue Examon 09-13 Surgical Tissue Exam Test performed at [place] [address] NAME: MARCIA MASCORRO REQUESTING: SHRUTI ONTIVEROS MD FINAL DIAGNOSIS: A) STOMACH, ANTRUM, BIOPSY - REACTIVE GASTROPATHY WITH MINIMAL CHRONIC INFLAMMATION. NO HISTOLOGIC FEATURES OF HELICOBACTER PYLORI ARE IDENTIFIED. B) GASTROESOPHAGEAL JUNCTION, BIOPSY - GLANDULAR MUCOSA POSITIVE FOR INTESTINAL METAPLASIA CONSISTENT WITH RETANA ESOPHAGUS, NEGATIVE FOR DYSPLASIA. NO SQUAMOUS MUCOSA IS PRESENT. SEE COMMENT. COMMENT: Dr. Raquel Martin reviewed part B and agrees with the diagnosis. 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 pylori Received in formalin labeled antrum biopsy is a goodson soft segment of tissue measuring 0.3 x 0.2 x 0.1 cm. The specimen is totally submitted in formalin in one cassette. B) GE junction Received in formalin labeled GE junction are multiple white-goodson soft segments of tissue aggregating to 0.5 x 0.3 x 0.1 cm. The specimens are totally submitted in formalin in one cassette. KVB:bartolo VAZQUEZ M.D. PATHOLOGIST (Electronic signature on file) Signed out: 09/15/2019 13:52 PRINTED: 09/15/2019 Page 1 of 1 Normal [facility] Comment on above: Performed By: #### S URG #### [place] [address] Comprehensive Panelon 2018 ALP [Catalytic activity/Vol] 168 U/L High 45-117 [facility] Comment on above: Performed By: #### P 14 #### [place] [address] Bilirubin [Mass/Vol] 0.3 mg/dL Normal 0.2-1.0 [facility] Comment on above: Performed By: #### P 14 #### [place] [address] Protein [Mass/Vol] 7.5 g/dL Normal 6.4-8.2 [facility] Comment on above: Performed By: #### P 14 #### [facility] [address] [place] [address] ALT [Catalytic activity/Vol] 13 U/L Normal 12-78 [facility] Comment on above: Performed By: #### P 14 #### [place] [address] AST [Catalytic activity/Vol] 15 U/L Normal 15-37 [facility] Comment on above: Performed By: #### P 14 #### [address] [place], [place] [address] Creatinine [Mass/Vol] 0.81 mg/dL Normal 0.51-0.95 [facility] Comment on above: Performed By: #### P 14 #### [facility] [address] [place], [place] [address] Albumin [Mass/Vol] 3.4 g/dL Normal 3.4-5.0 [facility] Comment on above: Performed By: #### P 14 #### [facility] [address] [place], [place] [address] Anion gap [Moles/Vol] 6 mmol/L Low 8-16 [facility] Comment on above: Performed By: #### P 14 #### [facility] [address] [place], [place] [address] CO2 [Moles/Vol] 31 mmol/L Normal 21-32 [facility] Comment on above: Performed By: #### P 14 #### [facility] [address] [place], [place] [address] Glucose [Mass/Vol] 83 mg/dL Normal 70-99 [facility] Comment on above: Performed By: #### P 14 #### [facility] [address] [place], [place] [address] Urea nitrogen [Mass/Vol] 13 mg/dL Normal 7-18 [facility] Comment on above: Performed By: #### P 14 #### [facility] [address] [place], [place] [address] Calcium [Mass/Vol] 9.9 mg/dL Normal 8.5-10.1 [facility] Comment on above: Performed By: #### P 14 #### [facility] [address] [place], [place] [address] Chloride [Moles/Vol] 106 mmol/L Normal 98-107 [facility] Comment on above: Performed By: #### P 14 #### [facility] [address] [place], [place] [address] Potassium [Moles/Vol] 3.6 mmol/L Normal 3.5-5.1 [facility] Comment on above: Performed By: #### P 14 #### [facility] [address] [place] [address] Sodium [Moles/Vol] 139 mmol/L Normal 136-145 [facility] Comment on above: Performed By: #### P 14 #### [facility] [address] [place] [address] [facility] Troponin Ion 08-23-2019 Troponin I.cardiac [Mass/Vol] ng/mL Normal 0.015-0.04 5 [facility] Comment on above: Performed By: #### E RTRP #### [facility] [address] [place] [address] Hemogram/Diffon 08-23-2019 Abs Immature Grans 0.01 thou/cmm Normal 0.00-0.05 [facility] Comment on above: Performed By: #### C BCD1 #### [place] [address] Abs Neut (ANC) 2.51 thou/cmm Normal 1.56-6.13 [facility] Comment on above: Performed By: #### C BCD1 #### [facility] [address] [place] [address] Abs. Baso 0.06 thou/cmm Normal 0.01-0.08 [facility] Comment on above: Performed By: #### C BCD1 #### [facility] [address] [place] [address] Abs. [place] 0.49 thou/cmm Normal 0.27-0.70 [facility] Comment on above: Performed By: #### C BCD1 #### [facility] [address] [place] [address] Basophils/100 WBC (Bld) 0.9 % Normal [facility] Comment on above: Performed By: #### C BCD1 #### [facility] [address] [place] [address] Eosinophils (Bld) [#/Vol] 0.46 thou/cmm High 0.00-0.31 [facility] Comment on above: Performed By: #### C BCD1 #### [place] [address] Eosinophils/100 WBC (Bld) 6.8 % Normal [facility] Comment on above: Performed By: #### C BCD1 #### [facility] [address] [place] [address] Erythrocyte distribution width (RBC) [Ratio] 12.8 % Normal 11.7-14.4 [facility] Comment on above: Performed By: #### C BCD1 #### [facility] [address] [place] [address] Hematocrit (Bld) [Volume fraction] 42.1 % Normal 34.1-44.9 [facility] Comment on above: Performed By: #### C BCD1 #### [facility] [address] [place] [address] Hemoglobin (Bld) [Mass/Vol] 14.3 g/dL Normal 11.2-15.7 [facility] Comment on above: Performed By: #### C BCD1 #### [place] [address] Immature Grans 0.10 % Normal [facility] Comment on above: Performed By: #### C BCD1 #### [place] [address] Lymphocytes (Bld) [#/Vol] 3.28 thou/cmm Normal 1.18-3.74 [facility] Comment on above: Performed By: #### C BCD1 #### [address] [address] Lymphocytes/100 WBC (Bld) 48.2 % Normal [facility] Comment on above: Performed By: #### C BCD1 #### [facility] [address] [place] [address] MCH (RBC) [Entitic mass] 30.6 pg Normal 25.6-32.2 [facility] Comment on above: Performed By: #### C BCD1 #### [facility] [address] [place] [address] MCHC (RBC) [Mass/Vol] 34.0 % Normal 31.6-34.8 [facility] Comment on above: Performed By: #### C BCD1 #### [facility] [address] [place], [place] [address] MCV (RBC) [Entitic vol] 90.1 fL Normal 79.4-94.[address] [facility] Comment on above: Performed By: #### C BCD1 #### [facility] [address] [place], [place] [address] Monocytes/100 WBC (Bld) 7.2 % Normal A [facility] Comment on above: Performed By: #### C BCD1 #### [facility] [address] [place] [address] Platelet mean volume (Bld) [Entitic vol] 9.1 fL Low 9.4-12.3 [facility] Comment on above: Performed By: #### C BCD1 #### [facility] [address] [place] [address] Platelets (Bld) [#/Vol] 247 thou/cmm Normal 182-369 [facility] Comment on above: Performed By: #### C BCD1 #### [facility] [address] [place] [address] RBC (Bld) [#/Vol] 4.67 mil/cmm Normal 3.93-5.22 [facility] Comment on above: Performed By: #### C BCD1 #### [facility] [address] [place] [address] RDW SD 41.8 fl Normal 36.4-46.3 [facility] Comment on above: Performed By: #### C BCD1 #### [facility] [address] [place] [address] Seg Neutrophil 36.8 % Normal [facility] Comment on above: Performed By: #### C BCD1 #### [facility] [address] [place] [address] WBC (Bld) [#/Vol] 6.81 thou/cmm Normal 3.98-10.04 [facility] Comment on above: Performed By: #### C BCD1 #### [facility] [address] [place] [address] MDRD GFRon 08-23-2019 GFR/1.73 sq M predicted among non-blacks MDRD (S/P/Bld) [Vol rate/Area] mL/min/{1.73_m2} Normal >60mL/min/ 1.73m2 [facility] Comment on above: Result Comment: If t he patient is , multiply the result by 1.210. Performed By: #### G FR #### [facility] [address] [place] [address] XR CHEST 2V FRONTAL/LATon XR CHEST 2V FRONTAL/LAT * * *Final Repor t* * * DATE OF EXAM: Aug 23 2019 7:19PM AKX [id number] - XR CHEST 2V FRONTAL/LAT / PROCEDURE REASON: Chest pain * * * * Physician Interpretation * * * * EXAMINATION: CHEST RADIOGRAPH (2 VIEW FRONTAL & LATERAL), 08/23/2019 CLINICAL HISTORY: Chest pain MQ: XC2_5 Comparison: 12/20/2015 RESULT: Lines, tubes, and devices: None. Lungs and pleura: The lungs appear clear. No pleural effusion or pneumothorax. Cardiomediastinal silhouette: Stable top normal heart size and tortuous aorta. Hilar structures within normal limits. Other: Mild degenerative changes in the thoracic spine.. IMPRESSION: No acute radiographic abnormality. Service Consultant: PSCB Transcribe Date/Time: Aug 23 2019 7:26P Dictated by : ESAU WELDON MD This examination was interpreted and the report reviewed and electronically signed by: ESAU WELDON MD on Aug 23 2019 7:28PM EST Normal [facility] 6-ACETYLMORPHINon 03-12-2019 6-YANG TOXASSURE Negative Normal () [facility] [place] Comment on above: Order Comment: Sylvie s: M Performed By: #### L 600.22222, L600.73855 #### [facility] [address] # [phone] CONFIRMATION 6M Not Detected Normal () [facility] Comment on above: Order Comment: Campu s: M Result Comment: INFC E Result Units: ng/mg creat Testing Threshold: 10 ng/mL This test was developed and its performance characteristics determined by [facility]. It has not been cleared or approved by the Food and Drug Administration. Performed At: [facility] [employer] [address] [place] [id number] Julio Abraham [facility] [id number] Performed By: #### L 600.16599, L600.90007 #### [facility] [address] [place] [address] # [phone] TOXASSURE COMPRon 03-12-2019 TOXASSURE COMPR FINAL Normal () [facility] [place] Comment on above: Order Comment: Sylvie s: M Result Comment: ======= TOXASSURE COMP DRUG ANALYSIS,UR 6-Acetylmorphine,ToxAssure Add CREATININE,URINE ======= Test Result Flag Units Drug Present Alprazolam 135 ng/mg creat Alpha-hydroxyalprazolam 241 ng/mg creat Source of alprazolam is a scheduled prescription medication. Alpha-hydroxyalprazolam is an expected metabolite of alprazolam. Lorazepam 1596 ng/mg creat Source of lorazepam is a scheduled prescription medication. Morphine 620 ng/mg creat Potential sources of morphine include administration of codeine or morphine, use of heroin, or ingestion of poppy seeds. Hydrocodone 225 ng/mg creat Norhydrocodone 473 ng/mg creat Sources of hydrocodone include scheduled prescription medications. Norhydrocodone is an expected metabolite of hydrocodone. Gabapentin PRESENT Sertraline PRESENT Desmethylsertraline PRESENT Desmethylsertraline is an expected metabolite of sertraline. Acetaminophen PRESENT Promethazine PRESENT ======= Test Result Flag Units Ref Range Creatinine 71 mg/dL >=20 ======= Declared Medications: Medication list was not provided. ======= For clinical consultation, please call . ======= Performed By: #### L 600.91137, L600.53247 #### [facility] [address] [place] [address] # [phone] Clinical Lists Update: Prelo district gauger 01-19-2017 Left ventricular Ejection fraction 55 % Invalid Interpretation Code [facility] Work Phone: Office Visiton 01-02-2017 Dietary management education, guidance, and counseling (procedure) yes Invalid Interpretation Code [facility] Work Phone: Documentation of current medications (procedure) Done Invalid Interpretation Code [facility] Work Phone: Smoking cessation education (procedure) yes Invalid Interpretation Code [facility] Work Phone: Tobacco use [facility] Current every day smoker Invali d Interpretation Code [facility] Work Phone: Clinical Lists Updateon 12-06 Left ventricular Ejection fraction 53 % Invalid Interpretation Code [facility] Work Phone: [phone] Clinical Lists Update: Prelo district gauger 08-27-2013 Alanine aminotransferase (ALT) 19 U/L Invalid Interpretation Code [employer] Work Phone: [phone] Alkaline phosphatase (ALP) 138 U/L Invalid Interpretation Code [facility] [employer] [facility] Work Phone: [phone] Aspartate aminotransferase (AST) 18 U/L Invalid Interpretation Code [facility] Work Phone: [phone] Bilirubin (total) 0.20 mg/dL Invalid Interpretation Code [facility] Work Phone: [phone] Calcium 9.1 mg/dL Invalid Interpretation Code [facility] Work Phone: [phone] Chloride 107 mmol/L Invalid Interpretation Code [facility] Work Phone: [phone] CO2 27.0 mmol/L Invalid Interpretation Code [facility] Work Phone: [phone] Creatinine 0.7 mg/dL Invalid Interpretation Code [facility] [employer] [facility] Work Phone: [phone] Hematocrit (HCT) 41.0 % Invalid Interpretation Code [facility] Work Phone: [phone] Hemoglobin (HGB) 14.1 g/dL Invalid Interpretation Code [facility] Work Phone: [phone] Platelets 228 10*3/mm3 Invalid Interpretation Code [facility] Work Phone: [phone] Potassium 3.6 mmol/L Invalid Interpretation Code [facility] [employer] [facility] Work Phone: [phone] Sodium 140 mmol/L Invalid Interpretation Code [facility] Work Phone: [phone] Thyroid stimulating hormone (TSH) 2.56 u[iU]/mL Invalid Interpretation Code [facility] Work Phone: [phone] Urea nitrogen 15 mg/dL Invalid Interpretation Code [facility] Work Phone: [phone] WBC (Leukocytes) 7.4 10*3/uL Invalid Interpretation Code [facility] [employer] [facility] Work Phone: [phone] EKG Report: [facility] ECG Obse rvationson 04-20-2013 GE use only - for [employer] import when terms are not otherwise specified 421 ms Invalid Interpretation Code [facility] [employer] [facility] Work Phone: [phone] Replaced Document: Brian BALDWIN Observationson 04-20-2013 electrocardiogram interpretation 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 - Nonspecific T-abnormality . ABNORMAL Invalid Interpretation Code [facility] Work Phone: [phone] P wave axis, electrocardiogram 43 deg Invalid Interpretation Code [facility] Work Phone: [phone] CO interval, electrocardiogram 128 ms Invalid Interpretation Code [facility] Work Phone: [phone] Pulse (Heart Rate) 422 ms Invalid Interpretation Code [facility] Work Phone: [phone] Pulse (Heart Rate) 88 /min Invalid Interpretation Code [facility] Work Phone: [phone] QRS axis, electrocardiogram 32 deg Invalid Interpretation Code [facility] Work Phone: [phone] QRS duration, electrocardiogram 114 ms Invalid Interpretation Code [facility] Work Phone: [phone] QT interval, electrocardiogram new path ms Invalid Interpretation Code [facility] Work Phone: [phone] T wave axis, electrocardiogram 74 deg Invalid Interpretation Code [facility] Work Phone: [phone] Clinical Lists Update: Pre district gauger 11-04-2012 Anion gap 8 mmol/L Invalid Interpretation Code [facility] Work Phone: [phone] BUN/Creatinine Ratio 12.5 mg/mg Invalid Interpretation Code [facility] Work Phone: [phone] Erythrocytes (RBC) 4.59 10*6/uL Invalid Interpretation Code [facility] Work Phone: [phone] Glucose 95 mg/dL Invalid Interpretation Code [facility] Work Phone: [phone] MCH 30.3 pg Invalid Interpretation Code [facility] Work Phone: [phone] MCV 91.1 fL Invalid Interpretation Code [facility] Work Phone: [phone] Clinical Lists Update: Prelo district gauger 07-29-2012 MCHC 34.2 % Invalid Interpretation Code [facility] Work Phone: [phone] RDW-CA 14.8 % High [facility] Work Phone: [phone] Clinical Lists Update: Prelo district gauger 03-30-2012 Cholesterol 225 mg/dL High [facility] Work Phone: [phone] HDL Cholesterol 22 mg/dL Low [facility] Work Phone: [phone] LDL Cholesterol 136 mg/dL High [facility] Work Phone: [phone] Triglyceride 333 mg/dL High [facility] Work Phone: [phone] very low density lipoproteins 67 mg/dL High [facility] Work Phone: [phone] Lab Report: [facility] - copyon specific gravity, urine >=1.030 Normal 1.00 2-1.03 0 [facility] Work Phone: [phone] Lab Report: PTon 01-19-2012 INR in blood by coagulation 1.1 {INR} Normal [facility] Work Phone: [phone] prothrombin time, actual/normal, ratio 13.6 SECONDS Normal 11.9-14.4 [facility] Work Phone: [phone] Lab Report: PTTon 01-19-2012 aPTT 33.1 s Normal 24.1-36.2 [facility] Work Phone: [phone] Replaced Document: TROPon Troponin I ng/mL Normal <0.06 [facility] Work Phone: [phone] COVID-19 virus antigen assay SARS-CoV-2 (COVID-19) Ag IA.rapid Ql (Resp) [facility] Work Phone: S. pyogenes Ag IF Ql (Throat ) S. pyogenes Ag IA Ql (Unsp spec) [facility] Work Phone: Throat Streptococcus pyogene s antigen detection by immunofluorescence S. pyogenes Ag IF Ql (Throat) [facility] Work Phone: Vital Signs Date Time Vital Sign Value Performing Clinician Facility 05-22-2025 10:47-0400 Body mass index (BMI) [Ratio] 30.06 kg/m2 Rajiv Munoz APRN.[employer] Work Phone: [facility] 05-22-2025 10:47-0400 Body temperature 99.39 [degF] Rajiv Munoz APRN.[employer] Work Phone: [facility] 05-22-2025 10:47-0400 Body weight 78.9 kg Rajiv Praisler-Wood 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.[employer] Work Phone: [facility] 05-22-2025 10:47-0400 Diastolic blood pressure 90 mm[Hg] Rajiv Praisler-Wood 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.[employer] Work Phone: [facility] 05-22-2025 10:47-0400 Heart rate 78 /min Rajiv Praisler-Wood 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.[employer] Work Phone: [facility] 05-22-2025 10:47-0400 Respiratory rate 20 /min Rajiv Praisler-Wood 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.[employer] Work Phone: [facility] 05-22-2025 10:47-0400 SaO2% (BldA) [Mass fraction] 93 % Rajiv Praisler-Wood 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.[employer] Work Phone: [facility] 05-22-2025 10:47-0400 Systolic blood pressure 138 mm[Hg] Rajiv Praisler-Wood 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.[employer] Work Phone: [facility] 03-28-2025 11:26-0400 Body height 162 cm Nora Mahendra 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.[employer] Work Phone: [facility] 03-28-2025 11:26-0400 Body mass index (BMI) [Ratio] 29.68 kg/m2 Nora Mahendra 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.[employer] Work Phone: [facility] 03-28-2025 11:26-0400 Body weight 77.9 kg Nora Mahendra 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.[employer] Work Phone: [facility] 03-28-2025 11:26-0400 Diastolic blood pressure 62 mm[Hg] Nora Mahendra 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.[employer] Work Phone: [facility] 03-28-2025 11:26-0400 Heart rate 60 /min Nora Mahendra 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.[employer] Work Phone: [facility] 03-28-2025 11:26-0400 Respiratory rate 14 /min Nora Mahendra 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.[employer] Work Phone: [facility] 03-28-2025 11:26-0400 SaO2% (BldA) [Mass fraction] 90 % Nora Crespo 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.[employer] Work Phone: [facility] 03-28-2025 11:26-0400 Systolic blood pressure 106 mm[Hg] Nora Crespo 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.[employer] Work Phone: [facility] 02-09-2025 15:13-0400 Body height 165.1 cm Grace Chaudhary MD, PhD Work Phone: [facility] 02-09-2025 15:13-0400 Body mass index (BMI) [Ratio] 29.86 kg/m2 Grace Chaudhary MD, PhD Work Phone: [facility] 02-09-2025 15:13-0400 Body weight 81.4 kg Grace Chaudhary MD, PhD Work Phone: [facility] 02-09-2025 15:13-0400 Diastolic blood pressure 60 mm[Hg] Grace Chaudhary MD, PhD Work Phone: [facility] 02-09-2025 15:13-0400 Heart rate 101 /min Grace Chaudhary MD, PhD Work Phone: [facility] 02-09-2025 15:13-0400 Systolic blood pressure 96 mm[Hg] Grace Chaudhary MD, PhD Work Phone: [facility] 01-10-2025 17:24-0400 Diastolic blood pressure 69 mm[Hg] Dr. Gabriel Galvan MD Work Phone: [facility] 01-10-2025 17:24-0400 Heart rate 66 /min Dr. Gabriel Galvan MD Work Phone: [facility] 01-10-2025 17:24-0400 Inhaled oxygen flow rate 3 L/min Dr. Gabriel Galvan MD Work Phone: [facility] 01-10-2025 17:24-0400 Respiratory rate 16 /min Dr. Gabriel Galvan MD Work Phone: [facility] 01-10-2025 17:24-0400 SaO2% (BldA) [Mass fraction] 94 % Dr. Gabriel Galvan MD Work Phone: [facility] 01-10-2025 17:24-0400 Systolic blood pressure 102 mm[Hg] Dr. Gabriel Galvan MD Work Phone: 7(225)167-016716 [place] [address] 01-10-2025 16:36-0400 Body temperature 98 [degF] Dr. Gabriel Galvan MD Work Phone: 0(598)649-670420 [place] [address] 01-10-2025 15:15-0400 Body height 154.[address] Gabriel Galvan MD Work Phone: 4(515)626-292820 [place] [address] 01-10-2025 15:15-0400 Body mass index (BMI) [Ratio] 35.1 kg/m2 Dr. Gabriel Galvan MD Work Phone: 4(765)801-229820 [place] [address] 01-10-2025 15:15-0400 Body weight 84.[address] Gabriel Galvan MD Work Phone: 7(950)499-365620 [place] [address] 01-03-2025 13:22-0400 Body mass index (BMI) [Ratio] 30.08 kg/m2 Lyndsey Acevedo 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.[employer] Work Phone: [facility] 01-03-2025 13:22-0400 Body weight 82 kg Lyndsey Acevedo 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.[employer] Work Phone: [facility] 01-03-2025 13:22-0400 Diastolic blood pressure 77 mm[Hg] Lyndsey Acevedo 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.[employer] Work Phone: [facility] 01-03-2025 13:22-0400 Heart rate 77 /min Lyndsey Acevedo 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.[employer] Work Phone: [facility] 01-03-2025 13:22-0400 Respiratory rate 16 /min Lyndsey Acevedo 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.[employer] Work Phone: [facility] 01-03-2025 13:22-0400 Systolic blood pressure 111 mm[Hg] Lyndsey Acevedo APRN.[employer] Work Phone: 6(690)265-595376 [place] [address] 12-30-2024 21:52-0400 Body temperature 98.6 [degF] Dr. Gabriel Galvan MD Work Phone: 3(984)562-383720 [place] [address] 12-30-2024 21:52-0400 Diastolic blood pressure 72 mm[Hg] Dr. Gabriel Galvan MD Work Phone: 7(732)204-552920 [place] [address] 12-30-2024 21:52-0400 Heart rate 89 /min Dr. Gabriel Galvan MD Work Phone: 3(567)878-125020 [place] [address] 12-30-2024 21:52-0400 Respiratory rate 16 /min Dr. Gabriel Galvan MD Work Phone: 3(254)575-247020 [place] [address] 12-30-2024 21:52-0400 SaO2% (BldA) [Mass fraction] 95 % Dr. Gabriel Galvan MD Work Phone: 7(977)757-693120 [place] [address] 12-30-2024 21:52-0400 Systolic blood pressure 137 mm[Hg] Dr. Gabriel Galvan MD Work Phone: 2(937)479-242820 [place] [address] 12-30-2024 18:20-0400 Body height 154.[address] Gabriel Galvan MD Work Phone: 8(578)799-762820 [place] [address] 12-30-2024 18:20-0400 Body mass index (BMI) [Ratio] 34.9 kg/m2 Dr. Gabriel Galvan MD Work Phone: 2(865)452-595120 [place] [address] 12-30-2024 18:20-0400 Body weight 83.[address] Gabriel Galvan MD Work Phone: 0(606)474-379320 [place] [address] 12-20-2024 18:15-0400 Body temperature 97.4 [degF] Dr. Gabriel Galvan MD Work Phone: 9(443)944-093720 [place] [address] 12-20-2024 18:15-0400 Diastolic blood pressure 77 mm[Hg] Dr. Gabriel Galvan MD Work Phone: 6(181)771-231516 [place] [address] 12-20-2024 18:15-0400 Heart rate 73 /min Dr. Gabriel Galvan MD Work Phone: 9(971)022-166420 [place] [address] 12-20-2024 18:15-0400 Respiratory rate 18 /min Dr. Gabriel Galvan MD Work Phone: 4(528)275-288720 [place] [address] 12-20-2024 18:15-0400 SaO2% (BldA) [Mass fraction] 96 % Dr. Gabriel Galvan MD Work Phone: 9(574)989-843620 [place] [address] 12-20-2024 18:15-0400 Systolic blood pressure 149 mm[Hg] Dr. Gabriel Galvan MD Work Phone: 2(778)660-953220 [place] [address] 12-20-2024 18:00-0400 Inhaled oxygen flow rate 2 L/min Dr. Gabriel Galvan MD Work Phone: 7(248)785-725320 [place] [address] 12-20-2024 15:04-0400 Body mass index (BMI) [Ratio] 35.3 kg/m2 Dr. Gabriel Galvan MD Work Phone: 0(214)777-905420 [place] [address] 12-20-2024 15:04-0400 Body weight 84.[address] Gabriel Galvan MD Work Phone: 0(666)810-634020 [place] [address] 12-20-2024 15:01-0400 Body height 154.[address] Gabriel Galvan MD Work Phone: 2(343)150-138420 [place] [address] 11-05-2024 14:00-0500 Inhaled oxygen flow rate 2 L/min Dr. Gabriel Galvan MD Work Phone: 7(809)162-137320 [place] [address] 11-05-2024 03:51-0500 Body temperature 98 [degF] Dr. Gabriel Galvan MD Work Phone: 0(506)452-029920 [place] [address] 11-05-2024 03:51-0500 Diastolic blood pressure 73 mm[Hg] Dr. Gabriel Galvan MD Work Phone: 2(810)627-275220 [place] [address] 11-05-2024 03:51-0500 Heart rate 78 /min Dr. Gabriel Galvan MD Work Phone: 9(192)824-217320 [place] [address] 11-05-2024 03:51-0500 Respiratory rate 16 /min Dr. Gabriel Galvan MD Work Phone: 7(457)479-511720 [place] [address] 11-05-2024 03:51-0500 SaO2% (BldA) [Mass fraction] 99 % Dr. Gabriel Galvan MD Work Phone: 0(447)385-192920 [place] [address] 11-05-2024 03:51-0500 Systolic blood pressure 126 mm[Hg] Dr. Gabriel Galvan MD Work Phone: 1(920)755-092420 [place] [address] 11-04-2024 22:45-0500 Body mass index (BMI) [Ratio] 37.5 kg/m2 Dr. Gabriel Galvan MD Work Phone: 1(407)735-755420 [place] [address] 11-04-2024 22:45-0500 Body weight 90.[address] Gabriel Galvan MD Work Phone: 1(063)478-658320 [place] [address] 10-04-2024 09:52-0500 Body mass index (BMI) [Ratio] 36.8 kg/m2 Dr. Gabriel Galvan MD Work Phone: 4(150)672-513620 [place] [address] 10-04-2024 09:52-0500 Body weight 88.[address] Gabriel Galvan MD Work Phone: 2(944)292-049020 [place] [address] 10-04-2024 09:52-0500 Diastolic blood pressure 92 mm[Hg] Dr. Gabriel Galvan MD Work Phone: 0(748)838-689220 [place] [address] 10-04-2024 09:52-0500 Heart rate 76 /min Dr. Gabriel Galvan MD Work Phone: 5(834)436-453720 [place] [address] 10-04-2024 09:52-0500 Respiratory rate 18 /min Dr. Gabriel Galvan MD Work Phone: 9(336)628-060320 [place] [address] 10-04-2024 09:52-0500 SaO2% (BldA) [Mass fraction] 93 % Dr. Gabriel Galvan MD Work Phone: 1(639)004-528120 [place] [address] 10-04-2024 09:52-0500 Systolic blood pressure 143 mm[Hg] Dr. Gabriel Galvan MD Work Phone: 2(081)101-702220 [place] [address] 09-30-2024 08:32-0500 Inhaled oxygen flow rate 2 L/min Dr. Gabriel Galvan MD Work Phone: 4(243)599-282520 [place] [address] 09-30-2024 08:28-0500 Body temperature 98.2 [degF] Dr. Gabriel Galvan MD Work Phone: 3(602)943-839320 [place] [address] 09-30-2024 08:28-0500 Diastolic blood pressure 84 mm[Hg] Dr. Gabriel Galvan MD Work Phone: 8(876)686-203620 [place] [address] 09-30-2024 08:28-0500 Heart rate 81 /min Dr. Gabriel Galvan MD Work Phone: 3(794)649-648920 [place] [address] 09-30-2024 08:28-0500 Respiratory rate 18 /min Dr. Gabriel Galvan MD Work Phone: 7(384)880-214420 [place] [address] 09-30-2024 08:28-0500 SaO2% (BldA) [Mass fraction] 94 % Dr. Gabriel Galvan MD Work Phone: 6(169)675-097720 [place] [address] 09-30-2024 08:28-0500 Systolic blood pressure 138 mm[Hg] Dr. Gabriel Galvan MD Work Phone: 6(940)838-547120 [place] [address] 09-30-2024 05:26-0500 Body mass index (BMI) [Ratio] 36.3 kg/m2 Dr. Gabriel Galvan MD Work Phone: 5(662)252-174220 [place] [address] 09-30-2024 05:26-0500 Body weight 87.[address] Gabriel Galvan MD Work Phone: 9(646)279-938220 [place] [address] 09-14-2024 15:25-0500 Body mass index (BMI) [Ratio] 31.22 kg/m2 Gabriel Galvan MD Work Phone: [facility] 09-14-2024 15:25-0500 Body temperature 97.59 [degF] Gabriel Galvan MD Work Phone: [facility] 09-14-2024 15:25-0500 Body weight 85.1 kg aGbriel Galvan MD Work Phone: [facility] 09-14-2024 15:25-0500 Diastolic blood pressure 72 mm[Hg] Gabriel Galvan MD Work Phone: [facility] 09-14-2024 15:25-0500 Heart rate 82 /min Gabriel Galvan MD Work Phone: [facility] 09-14-2024 15:25-0500 Respiratory rate 16 /min Gabriel Galvan MD Work Phone: [facility] 09-14-2024 15:25-0500 SaO2% (BldA) [Mass fraction] 96 % Gabriel Galvan MD Work Phone: [facility] 09-14-2024 15:25-0500 Systolic blood pressure 124 mm[Hg] Gabriel Galvan MD Work Phone: [facility] 08-26-2024 17:12-0500 Body mass index (BMI) [Ratio] 32.1 kg/m2 Ryanne Negro APRN.[employer] Work Phone: [facility] 08-26-2024 17:12-0500 Body temperature 99.61 [degF] Ryanne Negro APRN.[employer] Work Phone: [facility] 08-26-2024 17:12-0500 Body weight 87.5 kg Ryanne Negro APRN.[employer] Work Phone: [facility] 08-26-2024 17:12-0500 Diastolic blood pressure 85 mm[Hg] Ryanne Negro APRN.[employer] Work Phone: [facility] 08-26-2024 17:12-0500 Heart rate 87 /min Ryanne Negro APRN.[employer] Work Phone: [facility] 08-26-2024 17:12-0500 Respiratory rate 24 /min Ryanne Negro APRN.[employer] Work Phone: [facility] 08-26-2024 17:12-0500 SaO2% (BldA) [Mass fraction] 94 % Ryanne Negro 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.[employer] Work Phone: [facility] 08-26-2024 17:12-0500 Systolic blood pressure 136 mm[Hg] Ryanne Negro 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.[employer] Work Phone: [facility] 06-17-2024 14:53-0400 Body mass index (BMI) [Ratio] 31.55 kg/m2 Chucky Zepeda 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.[employer] Work Phone: [facility] 06-17-2024 14:53-0400 Body temperature 97.81 [degF] Chucky Zepeda 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.[employer] Work Phone: [facility] 06-17-2024 14:53-0400 Body weight 86 kg Chucky Zepeda 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.[employer] Work Phone: [facility] 06-17-2024 14:53-0400 Diastolic blood pressure 92 mm[Hg] Chucky Zepeda 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.[employer] Work Phone: [facility] 06-17-2024 14:53-0400 Heart rate 89 /min Chucky Zepeda 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.[employer] Work Phone: [facility] 06-17-2024 14:53-0400 Respiratory rate 20 /min Chucky Zepeda 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.[employer] Work Phone: [facility] 06-17-2024 14:53-0400 SaO2% (BldA) [Mass fraction] 95 % Chucky Zepeda 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.[employer] Work Phone: [facility] 06-17-2024 14:53-0400 Systolic blood pressure 140 mm[Hg] Chucky Zepeda 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.[employer] Work Phone: [facility] 05-30-2024 12:52-0400 Diastolic blood pressure 80 mm[Hg] Nora Crespo 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.[employer] Work Phone: [facility] 05-30-2024 12:52-0400 Systolic blood pressure 112 mm[Hg] Nora Mahendra 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.[employer] Work Phone: [facility] 05-30-2024 12:49-0400 Body mass index (BMI) [Ratio] 31.73 kg/m2 Nora Mahendra 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.[employer] Work Phone: [facility] 05-30-2024 12:49-0400 Body weight 86.5 kg Nora Mahendra 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.[employer] Work Phone: [facility] 05-30-2024 12:49-0400 Heart rate 69 /min Nora Mahendra 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.[employer] Work Phone: [facility] 05-30-2024 12:49-0400 SaO2% (BldA) [Mass fraction] 93 % Nora Mahendra 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.[employer] Work Phone: [facility] 04-25-2024 14:34-0400 Body height 165.1 cm Darrell Tejada MD Work Phone: [facility] 04-25-2024 14:34-0400 Body mass index (BMI) [Ratio] 32.28 kg/m2 Darrell Tejada MD Work Phone: [facility] 04-25-2024 14:34-0400 Body temperature 97.81 [degF] Darrell Tejada MD Work Phone: [facility] 04-25-2024 14:34-0400 Body weight 88 kg Darrell Tejada MD Work Phone: [facility] 04-25-2024 14:34-0400 Diastolic blood pressure 72 mm[Hg] Darrell Tejada MD Work Phone: [facility] 04-25-2024 14:34-0400 Heart rate 83 /min Darrell Tejada MD Work Phone: [facility] 04-25-2024 14:34-0400 SaO2% (BldA) [Mass fraction] 100 % Darrell Tejada MD Work Phone: [facility] 04-25-2024 14:34-0400 Systolic blood pressure 100 mm[Hg] Darrell Tejada MD Work Phone: [facility] 04-11-2024 13:56-0400 Body mass index (BMI) [Ratio] 32.43 kg/m2 Nora Mahendra 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.[employer] Work Phone: [facility] 04-11-2024 13:56-0400 Body weight 88.4 kg Nora Mahendra 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.[employer] Work Phone: [facility] 04-11-2024 13:56-0400 Diastolic blood pressure 86 mm[Hg] Nora Mahendra 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.[employer] Work Phone: [facility] 04-11-2024 13:56-0400 Heart rate 88 /min Nora Mahendra 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.[employer] Work Phone: [facility] 04-11-2024 13:56-0400 SaO2% (BldA) [Mass fraction] 93 % Nora Mahendra 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.[employer] Work Phone: [facility] 04-11-2024 13:56-0400 Systolic blood pressure 118 mm[Hg] Nora Mahendra 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.[employer] Work Phone: [facility] 03-14-2024 12:06-0400 Body mass index (BMI) [Ratio] 32.62 kg/m2 Nora Mahendra 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.[employer] Work Phone: [facility] 03-14-2024 12:06-0400 Body weight 88.91 kg Nora Mahendra 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.[employer] Work Phone: [facility] 03-14-2024 12:06-0400 Diastolic blood pressure 74 mm[Hg] Nora Mahendra 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.[employer] Work Phone: [facility] 03-14-2024 12:06-0400 Heart rate 112 /min Nora Mahendra 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.[employer] Work Phone: [facility] 03-14-2024 12:06-0400 SaO2% (BldA) [Mass fraction] 90 % Nora Mahendra 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.[employer] Work Phone: [facility] 03-14-2024 12:06-0400 Systolic blood pressure 114 mm[Hg] Nora Mahendra 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.[employer] Work Phone: [facility] 12-29-2023 13:00-0400 Diastolic blood pressure 91 mm[Hg] TRAINING MANAGER-C Nora Mahendra [facility] [place] 12-29-2023 13:00-0400 Heart rate 81 /min TRAINING MANAGER-C Nora Mahendra [facility] [place] 12-29-2023 13:00-0400 Respiratory rate 20 /min TRAINING MANAGER-C Nora Mahendra [facility] [place] 12-29-2023 13:00-0400 SaO2% (BldA) [Mass fraction] 93 % TRAINING MANAGER-C Nora Mahendra [facility] [place] 12-29-2023 13:00-0400 Systolic blood pressure 160 mm[Hg] TRAINING MANAGER-C Nora Mahendra [facility] [place] 12-29-2023 09:11-0400 Body mass index (BMI) [Ratio] 32.5 kg/m2 TRAINING MANAGER-C Nora Mahendra [facility] [place] 12-29-2023 09:11-0400 Body weight 94.2 kg TRAINING MANAGER-C Nora Mahendra [facility] [place] 12-29-2023 08:54-0400 Body height 170.18 cm TRAINING MANAGER-C Nora Mahendra [facility] [place] 12-29-2023 08:54-0400 Body temperature 97.6 [degF] TRAINING MANAGER-C Nora Mahendra [facility] [place] 12-20-2023 03:05-0400 Body temperature 98.24 [degF] DR MERLINE CHRISTENSEN DO [facility] 12-20-2023 03:05-0400 Diastolic Blood Pressure Non-Invasive 54 mm[Hg] DR MERLINE CHRISTENSEN DO [facility] 12-20-2023 03:05-0400 Heart rate 74 /min DR MERLINE CHRISTENSEN DO [facility] 12-20-2023 03:05-0400 Respiratory rate 20 /min DR MERLINE CHRISTENSEN DO [facility] 12-20-2023 03:05-0400 Systolic Blood Pressure Non-Invasive 94 mm[Hg] DR MERLINE CHRISTENSEN DO [facility] 12-20-2023 02:03-0400 Diastolic Blood Pressure Non-Invasive 69 mm[Hg] DR MERLINE CHRISTENSEN DO [facility] 12-20-2023 02:03-0400 Heart rate 88 /min DR MERLINE CHRISTENSEN DO [facility] 12-20-2023 02:03-0400 Respiratory rate 21 /min DR MERLINE CHRISTENSEN DO [facility] 12-20-2023 02:03-0400 Systolic Blood Pressure Non-Invasive 104 mm[Hg] DR MERLINE CHRISTENSEN DO [facility] 12-20-2023 01:31-0400 Diastolic Blood Pressure Non-Invasive 66 mm[Hg] DR MERLINE CHRISTENSEN DO [facility] 12-20-2023 01:31-0400 Heart rate 86 /min DR MERLINE CHRISTENSEN DO [facility] 12-20-2023 01:31-0400 Respiratory rate 21 /min DR MERLINE CHRISTENSEN DO [facility] 12-20-2023 01:31-0400 Systolic Blood Pressure Non-Invasive 116 mm[Hg] DR MERLINE CHRISTENSEN DO [facility] 12-20-2023 00:19-0400 Reason For Taking VItal Signs DR MERLINE CHRISTENSEN DO [facility] 12-19-2023 22:46-0400 Heart rate 102 /min DR MERLINE CHRISTENSEN DO [facility] 12-19-2023 22:10-0400 Heart rate 132 /min DR MERLINE CHRISTENSEN DO [facility] 12-19-2023 21:18-0400 Body temperature 98.24 [degF] DR MERLINE CHRISTENSEN DO [facility] 11-30-2023 12:00-0400 Body temperature 98.7 [degF] Dr. Gabriel Galvan Work Phone: [facility] 11-30-2023 12:00-0400 Diastolic blood pressure 97 mm[Hg] Dr. Gabriel Galvan Work Phone: [facility] 11-30-2023 12:00-0400 Heart rate 77 /min Dr. Gabriel Galvan Work Phone: [facility] 11-30-2023 12:00-0400 Respiratory rate 18 /min Dr. Gabriel Galvan Work Phone: [facility] 11-30-2023 12:00-0400 SaO2% (BldA) [Mass fraction] 94 % Dr. Gabriel Galvan Work Phone: [facility] 11-30-2023 12:00-0400 Systolic blood pressure 166 mm[Hg] Dr. Gabriel Galvan Work Phone: [facility] 11-30-2023 09:35-0400 Body height 170.[address] Gabriel Galvan Work Phone: [facility] 11-30-2023 09:35-0400 Body mass index (BMI) [Ratio] 33.7 kg/m2 Dr. Gabriel Galvan Work Phone: [facility] 11-30-2023 09:35-0400 Body weight 97.[address] Gabriel Galvan Work Phone: [facility] 11-25-2023 16:54-0400 Body mass index (BMI) [Ratio] 36.56 kg/m2 Gabriel Galvan MD Work Phone: [facility] 11-25-2023 16:54-0400 Body weight 96.62 kg Gabriel Galvan MD Work Phone: [facility] 11-25-2023 16:54-0400 Diastolic blood pressure 86 mm[Hg] Gabriel Galvan MD Work Phone: [facility] 11-25-2023 16:54-0400 Heart rate 78 /min Gabriel Galvan MD Work Phone: [facility] 11-25-2023 16:54-0400 Respiratory rate 16 /min Gabriel Galvan MD Work Phone: [facility] 11-25-2023 16:54-0400 Systolic blood pressure 124 mm[Hg] Gabriel Galvan MD Work Phone: [facility] 09-29-2023 21:32-0500 Diastolic blood pressure 80 mm[Hg] Dr. Rakesh Martinez Work Phone: [facility] 09-29-2023 21:32-0500 Heart rate 70 /min Dr. Rakesh Martinez Work Phone: [facility] 09-29-2023 21:32-0500 Respiratory rate 16 /min Dr. Rakesh Martinez Work Phone: [facility] 09-29-2023 21:32-0500 SaO2% (BldA) [Mass fraction] 97 % Dr. Rakesh Martinez Work Phone: [facility] 09-29-2023 21:32-0500 Systolic blood pressure 163 mm[Hg] Dr. Rakesh Martinez Work Phone: [facility] 09-29-2023 17:45-0500 Body height 167.[address] Rakesh Martinez Work Phone: [facility] 09-29-2023 17:45-0500 Body mass index (BMI) [Ratio] 35.2 kg/m2 Dr. Rakesh Martinez Work Phone: [facility] 09-29-2023 17:45-0500 Body temperature 97.6 [degF] Dr. Rakesh Martinez Work Phone: [facility] 09-29-2023 17:45-0500 Body weight 98.[address] Rakesh Martinez Work Phone: [facility] 09-28-2023 10:40-0500 Body temperature 97.1 [degF] Dr. Rakesh Martinez Work Phone: [facility] 09-28-2023 10:40-0500 Diastolic blood pressure 56 mm[Hg] Dr. Rakesh Martinez Work Phone: 6(235)483-990020 [place] [address] 09-28-2023 10:40-0500 Heart rate 64 /min Dr. Rakesh Martinez Work Phone: [facility] 09-28-2023 10:40-0500 Respiratory rate 16 /min Dr. Rakesh Martinez Work Phone: [facility] 09-28-2023 10:40-0500 SaO2% (BldA) [Mass fraction] 94 % Dr. Rakesh Martinez Work Phone: [facility] 09-28-2023 10:40-0500 Systolic blood pressure 97 mm[Hg] Dr. Rakesh Martinez Work Phone: [facility] 09-28-2023 10:35-0500 Inhaled oxygen flow rate 2 L/min Dr. Rakesh Martinez Work Phone: [facility] 09-28-2023 09:14-0500 Body height 167.[address] Rakesh Martinez Work Phone: [facility] 09-28-2023 09:14-0500 Body mass index (BMI) [Ratio] 34.1 kg/m2 Dr. Rakesh Martinez Work Phone: [facility] 09-28-2023 09:14-0500 Body weight [address] Rakesh Martinez Work Phone: 0(488)200-353720 [place] [address] 12-30-2023 23:59-0500 Diastolic blood pressure 81 mm[Hg] Dr. Gabriel Galvan Work Phone: 8(605)333-224520 [place] [address] 09-05-2023 23:59-0500 Heart rate 86 /min Dr. Gabriel Galvan Work Phone: 5(582)021-230020 [place] [address] 09-05-2023 23:59-0500 Respiratory rate 16 /min Dr. Gabriel Galvan Work Phone: 2(725)013-912320 [place] [address] 09-05-2023 23:59-0500 SaO2% (BldA) [Mass fraction] 94 % Dr. Gabriel Galvan Work Phone: 2(610)994-778320 [place] [address] 09-05-2023 23:59-0500 Systolic blood pressure 156 mm[Hg] Dr. Gabriel Galvan Work Phone: 3(590)425-922320 [place] [address] 09-05-2023 18:41-0500 Body height 167.[address] Gabriel Galvan Work Phone: 4(907)876-261820 [place] [address] 09-05-2023 18:41-0500 Body temperature 98.4 [degF] Dr. Gabriel Galvan Work Phone: 0(882)873-840420 [place] [address] 07-29-2023 20:00-0500 Diastolic blood pressure 98 mm[Hg] Dr. Gabriel Galvan Work Phone: 9(693)103-684320 [place] [address] 07-29-2023 20:00-0500 Heart rate 86 /min Dr. Gabriel Galvan Work Phone: 4(918)784-317820 [place] [address] 07-29-2023 20:00-0500 Respiratory rate 16 /min Dr. Gabriel Galvan Work Phone: 1(474)574-053920 [place] [address] 07-29-2023 20:00-0500 SaO2% (BldA) [Mass fraction] 97 % Dr. Gabriel Galvan Work Phone: 9(415)610-889220 [place] [address] 07-29-2023 20:00-0500 Systolic blood pressure 178 mm[Hg] Dr. Gabriel Galvan Work Phone: 6(616)392-424620 [place] [address] 07-29-2023 16:57-0500 Body height 167.[address] Gabriel Galvan Work Phone: 1(907)949-099620 [place] [address] 07-29-2023 16:57-0500 Body mass index (BMI) [Ratio] 32.3 kg/m2 Dr. Gabriel Galvan Work Phone: 3(603)115-701220 [place] [address] 07-29-2023 16:57-0500 Body temperature 97.6 [degF] Dr. Gabriel Galvan Work Phone: 7(425)436-193520 [place] [address] 07-29-2023 16:57-0500 Body weight 90.[address] Gabriel Galvan Work Phone: 6(992)041-365020 [place] [address] 07-28-2023 14:02-0500 Body temperature 99.4 [degF] Dr. Gabriel Galvan Work Phone: 1(633)613-478920 [place] [address] 07-28-2023 14:02-0500 Diastolic blood pressure 69 mm[Hg] Dr. Gabriel Galvan Work Phone: 1(752)845-877420 [place] [address] 07-28-2023 14:02-0500 Heart rate 65 /min Dr. Gabriel Galvan Work Phone: 6(644)243-999320 [place] [address] 07-28-2023 14:02-0500 Respiratory rate 18 /min Dr. Gabriel Galvan Work Phone: 7(449)740-606320 [place] [address] 07-28-2023 14:02-0500 SaO2% (BldA) [Mass fraction] 94 % Dr. Gabriel Galvan Work Phone: 3(220)785-141620 [place] [address] 07-28-2023 14:02-0500 Systolic blood pressure 134 mm[Hg] Dr. Gabriel Galvan Work Phone: 1(782)388-293720 [place] [address] 07-28-2023 13:30-0500 Inhaled oxygen flow rate 2 L/min Dr. Gabriel Galvan Work Phone: 6(617)861-562720 [place] [address] 07-28-2023 11:11-0500 Body height 165.[address] Gabriel Galvan Work Phone: 0(442)458-997920 [place] [address] 07-28-2023 11:11-0500 Body mass index (BMI) [Ratio] 37 kg/m2 Dr. Gabriel Galvan Work Phone: 3(143)819-954820 [place] [address] 07-28-2023 11:11-0500 Body weight [address] Gabriel Galvan Work Phone: 3(289)540-057420 [place] [address] 07-19-2023 23:10-0500 Body temperature 98 [degF] Dr. Gabriel Galvan Work Phone: 6(691)433-433820 [place] [address] 07-19-2023 23:10-0500 Diastolic blood pressure 78 mm[Hg] Dr. Gabriel Galvan Work Phone: 2(323)171-763020 [place] [address] 07-19-2023 23:10-0500 Heart rate 66 /min Dr. Gabriel Galvan Work Phone: 5(379)087-637020 [place] [address] 07-19-2023 23:10-0500 Respiratory rate 16 /min Dr. Gabriel Galvan Work Phone: 7(356)435-697320 [place] [address] 07-19-2023 23:10-0500 SaO2% (BldA) [Mass fraction] 98 % Dr. Gabriel Galvan Work Phone: 0(216)980-237020 [place] [address] 07-19-2023 23:10-0500 Systolic blood pressure 130 mm[Hg] Dr. Gabriel Galvan Work Phone: 1(324)629-973120 [place] [address] 07-19-2023 19:35-0500 Body height 167.[address] Gabriel Galvan Work Phone: 8(969)187-791920 [place] [address] 07-19-2023 19:35-0500 Body mass index (BMI) [Ratio] 33 kg/m2 Dr. Gabriel Galvan Work Phone: 1(166)433-239916 [place] [address] 07-19-2023 19:35-0500 Body weight 92.[address] Gabriel Galvan Work Phone: 2(739)140-286220 [place] [address] 07-16-2023 13:07-0500 Body mass index (BMI) [Ratio] 35.9 kg/m2 Dr. Gabriel Galvan Work Phone: 2(677)794-057816 [place] [address] 07-16-2023 13:07-0500 Body weight 97.[address] Gabriel Galvan Work Phone: 9(897)032-127320 [place] [address] 07-16-2023 13:07-0500 Diastolic blood pressure 84 mm[Hg] Dr. Gabriel Galvan Work Phone: 1(618)494-783320 [place] [address] 07-16-2023 13:07-0500 Heart rate 83 /min Dr. Gabriel Galvan Work Phone: 7(576)061-242420 [place] [address] 07-16-2023 13:07-0500 Respiratory rate 18 /min Dr. Gabriel Galvan Work Phone: 9(655)804-302920 [place] [address] 07-16-2023 13:07-0500 SaO2% (BldA) [Mass fraction] 92 % Dr. Gabriel Galvan Work Phone: 2(542)044-815120 [place] [address] 07-16-2023 13:07-0500 Systolic blood pressure 129 mm[Hg] Dr. Gabriel Galvan Work Phone: 5(696)215-525920 [place] [address] 06-24-2023 12:28-0400 Diastolic blood pressure 58 mm[Hg] Dr. Gabriel Galvan Work Phone: 4(273)339-984120 [place] [address] 06-24-2023 12:28-0400 Heart rate 78 /min Dr. Gabriel Galvan Work Phone: 6(046)803-901220 [place] [address] 06-24-2023 12:28-0400 Respiratory rate 18 /min Dr. Gabriel Galvan Work Phone: 0(741)366-391120 [place] [address] 06-24-2023 12:28-0400 SaO2% (BldA) [Mass fraction] 95 % Dr. Gabriel Galvan Work Phone: 9(914)580-658920 [place] [address] 06-24-2023 12:28-0400 Systolic blood pressure 87 mm[Hg] Dr. Gabriel Galvan Work Phone: 8(512)125-869420 [place] [address] 06-24-2023 12:25-0400 Body temperature 96.6 [degF] Dr. Gabriel Galvan Work Phone: 1(278)788-210216 [place] [address] 06-24-2023 11:23-0400 Body height 165.[address] Gabriel Galvan Work Phone: 5(398)704-929720 [place] [address] 06-24-2023 11:23-0400 Body mass index (BMI) [Ratio] 35.4 kg/m2 Dr. Gabriel Galvan Work Phone: 1(243)929-544620 [place] [address] 06-24-2023 11:23-0400 Body weight 96.[address] Gabriel Galvan Work Phone: 6(113)317-260320 [place] [address] 06-23-2023 18:09-0400 Diastolic blood pressure 69 mm[Hg] Dr. Gabriel Galvan Work Phone: 4(204)670-603320 [place] [address] 06-23-2023 18:09-0400 Heart rate 71 /min Dr. Gabriel Galvan Work Phone: 4(703)672-405820 [place] [address] 06-23-2023 18:09-0400 Respiratory rate 14 /min Dr. Gabriel Galvan Work Phone: 4(470)714-471720 [place] [address] 06-23-2023 18:09-0400 SaO2% (BldA) [Mass fraction] 98 % Dr. Gabriel Galvan Work Phone: 6(463)984-152820 [place] [address] 06-23-2023 18:09-0400 Systolic blood pressure 134 mm[Hg] Dr. Gabriel Galvan Work Phone: 6(321)886-999020 [place] [address] 06-23-2023 16:01-0400 Body height 165.[address] Gabriel Galvan Work Phone: 4(428)735-136420 [place] [address] 06-23-2023 16:01-0400 Body mass index (BMI) [Ratio] 35.4 kg/m2 Dr. Gabriel Galvan Work Phone: 9(743)276-854120 [place] [address] 06-23-2023 16:01-0400 Body temperature 97.8 [degF] Dr. Gabriel Galvan Work Phone: 4(136)156-427820 [place] [address] 06-23-2023 16:01-0400 Body weight 96.[address] Gabriel Galvan Work Phone: 7(226)920-914216 [place] [address] 06-01-2023 21:15-0400 Body height 165.[address] Gabriel Galvan Work Phone: 3(778)639-509720 [place] [address] 06-01-2023 21:15-0400 Body mass index (BMI) [Ratio] 37.3 kg/m2 Dr. Gabriel Galvan Work Phone: 3(696)592-566920 [place] [address] 06-01-2023 21:15-0400 Body temperature 97.5 [degF] Dr. Gabriel Galvan Work Phone: 9(107)031-721920 [place] [address] 06-01-2023 21:15-0400 Body weight 101.[address] Gabriel Galvan Work Phone: 3(200)614-825320 [place] [address] 06-01-2023 21:15-0400 Diastolic blood pressure 78 mm[Hg] Dr. Gabreil Galvan Work Phone: 4(119)940-740120 [place] [address] 06-01-2023 21:15-0400 Heart rate 79 /min Dr. Gabriel Galvan Work Phone: 8(555)701-565520 [place] [address] 06-01-2023 21:15-0400 Respiratory rate 16 /min Dr. Gabriel Galvan Work Phone: 5(043)502-219820 [place] [address] 06-01-2023 21:15-0400 SaO2% (BldA) [Mass fraction] 96 % Dr. Gabriel Galvan Work Phone: 7(390)183-421420 [place] [address] 06-01-2023 21:15-0400 Systolic blood pressure 152 mm[Hg] Dr. Gabriel Galvan Work Phone: 9(823)798-883820 [place] [address] 03-04-2023 11:03-0400 Body temperature 97.8 [degF] Dr. Gabriel Galvan Work Phone: 6(494)870-906520 [place] [address] 03-04-2023 11:03-0400 Body weight 90.[address] Gabriel Galvan Work Phone: 4(705)947-855620 [place] [address] 03-04-2023 11:03-0400 Diastolic blood pressure 86 mm[Hg] Dr. Gabriel Galvan Work Phone: [facility] 03-04-2023 11:03-0400 Heart rate 82 /min Dr. Gabriel Galvan Work Phone: [facility] 03-04-2023 11:03-0400 Respiratory rate 18 /min Dr. Gabriel Galvan Work Phone: [facility] 03-04-2023 11:03-0400 SaO2% (BldA) [Mass fraction] 95 % Dr. Gabriel Galvan Work Phone: [facility] 03-04-2023 11:03-0400 Systolic blood pressure 125 mm[Hg] Dr. Gabriel Galvan Work Phone: [facility] 02-17-2023 11:16-0400 Body height 165.[address] Clyde Serrano Work Phone: 6(281)306-488196 [place] [address] 02-17-2023 11:01-0400 Body mass index (BMI) [Ratio] 32.8 kg/m2 Dr. Clyde Serrano Work Phone: 9(704)960-350996 [place] [address] 02-17-2023 11:01-0400 Body weight 89.[address] Clyde Serrano Work Phone: 9(223)872-691996 [place] [address] 02-17-2023 11:01-0400 Diastolic blood pressure 81 mm[Hg] Dr. Clyde Serrano Work Phone: 1(905)978-039696 [place] [address] 02-17-2023 11:01-0400 Heart rate 72 /min Dr. Clyde Serrano Work Phone: 4(658)655-747596 [place] [address] 02-17-2023 11:01-0400 Respiratory rate 20 /min Dr. Clyde Serrano Work Phone: 9(964)016-340396 [place] [address] 02-17-2023 11:01-0400 SaO2% (BldA) [Mass fraction] 94 % Dr. Clyde Serrano Work Phone: 2(000)755-076796 [place] [address] 02-17-2023 11:01-0400 Systolic blood pressure 121 mm[Hg] Dr. Clyde Serrano Work Phone: 6(818)231-502673 [place] [address] 01-16-2023 11:45-0400 Diastolic blood pressure 82 mm[Hg] Dr. Clyde Serrano Work Phone: 5(522)748-161173 [place] [address] 01-16-2023 11:45-0400 Systolic blood pressure 141 mm[Hg] Dr. Clyde Serrano Work Phone: 6(217)813-115273 [place] [address] 01-16-2023 10:30-0400 SaO2% (BldA) [Mass fraction] 97 % Dr. Clyde Serrano Work Phone: 0(950)132-759173 [place] [address] 01-16-2023 07:31-0400 Body height 165.[address] Clyde Serrano Work Phone: 1(761)990-307673 [place] [address] 01-16-2023 07:31-0400 Body mass index (BMI) [Ratio] 32 kg/m2 Dr. Clyde Serrano Work Phone: 0(608)916-243073 [place] [address] 01-16-2023 07:31-0400 Body temperature 98.1 [degF] Dr. Clyde Serrano Work Phone: 6(797)350-940473 [place] [address] 01-16-2023 07:31-0400 Body weight 87.[address] Clyde Serrano Work Phone: 2(920)482-256873 [place] [address] 01-16-2023 07:31-0400 Heart rate 85 /min Dr. Clyde Serrano Work Phone: 6(793)573-137496 [place] [address] 01-16-2023 07:31-0400 Respiratory rate 16 /min Dr. Clyde Serrano Work Phone: 2(364)522-233696 [place] [address] 01-14-2023 18:27-0400 Diastolic blood pressure 77 mm[Hg] Dr. Sudhir Ochoa Work Phone: [facility] 01-14-2023 18:27-0400 Heart rate 65 /min Dr. Sudhir Ochoa Work Phone: [facility] 01-14-2023 18:27-0400 Respiratory rate 18 /min Dr. Sudhir Ochoa Work Phone: [facility] 01-14-2023 18:27-0400 SaO2% (BldA) [Mass fraction] 98 % Dr. Sudhir Ochoa Work Phone: [facility] 01-14-2023 18:27-0400 Systolic blood pressure 139 mm[Hg] Dr. Sudhir Ochoa Work Phone: [facility] 01-14-2023 13:22-0400 Body height 165.[address] Sudhir Ochoa Work Phone: [facility] 01-14-2023 13:22-0400 Body mass index (BMI) [Ratio] 30.6 kg/m2 Dr. Sudhir Ochoa Work Phone: [facility] 01-14-2023 13:22-0400 Body temperature 97.8 [degF] Dr. Sudhir Ochoa Work Phone: [facility] 01-14-2023 13:22-0400 Body weight 83.[address] Sudhir Ochoa Work Phone: [facility] 01-13-2023 14:18-0400 Body weight 83.01 kg Lyndsey Acevedo 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.ALMOND ROASTER Work Phone: [facility] 01-13-2023 14:18-0400 Diastolic blood pressure 84 mm[Hg] Lyndsey Acevedo 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.ALMOND ROASTER Work Phone: [facility] 01-13-2023 14:18-0400 Heart rate 83 /min Lyndsey Acevedo 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.ALMOND ROASTER Work Phone: [facility] 01-13-2023 14:18-0400 Respiratory rate 16 /min Lyndsey Acevedo 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.ALMOND ROASTER Work Phone: [facility] 01-13-2023 14:18-0400 SaO2% (BldA) [Mass fraction] 97 % Lyndsey Acevedo 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.ALMOND ROASTER Work Phone: [facility] 01-13-2023 14:18-0400 Systolic blood pressure 118 mm[Hg] Lyndsey Acevedo 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.ALMOND ROASTER Work Phone: [facility] 01-13-2023 00:43-0400 Diastolic blood pressure 69 mm[Hg] Dr. Sudhir Ochoa Work Phone: [facility] 01-13-2023 00:43-0400 Heart rate 81 /min Dr. Sudhir Ochoa Work Phone: 0(167)076-726720 [place] [address] 01-13-2023 00:43-0400 Respiratory rate 15 /min Dr. Sudhir Ochoa Work Phone: 9(776)498-633620 [place] [address] 01-13-2023 00:43-0400 SaO2% (BldA) [Mass fraction] 96 % Dr. Sudhir Ochoa Work Phone: 1(271)461-200120 [place] [address] 01-13-2023 00:43-0400 Systolic blood pressure 143 mm[Hg] Dr. Sudhir Ochoa Work Phone: 0(834)264-101620 [place] [address] 01-12-2023 20:03-0400 Body height 165.[address] Sudhir Ochoa Work Phone: 9(919)762-507320 [place] [address] 01-12-2023 20:03-0400 Body mass index (BMI) [Ratio] 30.9 kg/m2 Dr. Sudhir Ochoa Work Phone: 3(941)724-506520 [place] [address] 01-12-2023 20:03-0400 Body temperature 97.8 [degF] Dr. Sudhir Ochoa Work Phone: 2(798)300-335220 [place] [address] 01-12-2023 20:03-0400 Body weight 84.[address] Sudhir Ochoa Work Phone: 1(265)203-886220 [place] [address] 01-10-2023 15:48-0400 Diastolic blood pressure 69 mm[Hg] Dr. Sudhir Ochoa Work Phone: 1(851)381-049120 [place] [address] 01-10-2023 15:48-0400 Heart rate 76 /min Dr. Sudhir Ochoa Work Phone: 0(645)590-745520 [place] [address] 01-10-2023 15:48-0400 Respiratory rate 19 /min Dr. Sudhir Ochoa Work Phone: 5(242)373-065920 [place] [address] 01-10-2023 15:48-0400 SaO2% (BldA) [Mass fraction] 96 % Dr. Sudhir Ochoa Work Phone: 8(927)681-068020 [place] [address] 01-10-2023 15:48-0400 Systolic blood pressure 110 mm[Hg] Dr. Sudhir Ochoa Work Phone: 7(578)742-617520 [place] [address] 01-10-2023 13:04-0400 Body height 165.[address] Sudhir Ochoa Work Phone: 8(905)535-614220 [place] [address] 01-10-2023 13:04-0400 Body mass index (BMI) [Ratio] 28.3 kg/m2 Dr. Sudhir Ochoa Work Phone: 4(293)104-719420 [place] [address] 01-10-2023 13:04-0400 Body temperature 97.4 [degF] Dr. Sudhir Ochoa Work Phone: 2(560)013-269520 [place] [address] 01-10-2023 13:04-0400 Body weight 77.[address] Sudhir Ochoa Work Phone: 5(101)193-125520 [place] [address] 01-04-2023 15:00-0400 Body temperature 98.2 [degF] Dr. Sudhir Ochoa Work Phone: 3(018)359-395420 [place] [address] 01-04-2023 15:00-0400 Diastolic blood pressure 89 mm[Hg] Dr. Sudhir Ochoa Work Phone: 4(187)223-846920 [place] [address] 01-04-2023 15:00-0400 Heart rate 81 /min Dr. Sudhir Ochoa Work Phone: 8(890)201-544620 [place] [address] 01-04-2023 15:00-0400 Respiratory rate 16 /min Dr. Sudhir Ochoa Work Phone: 3(323)889-374420 [place] [address] 01-04-2023 15:00-0400 SaO2% (BldA) [Mass fraction] 95 % Dr. Sudhir Ochoa Work Phone: 8(710)051-957620 [place] [address] 01-04-2023 15:00-0400 Systolic blood pressure 156 mm[Hg] Dr. Sudhir Ochoa Work Phone: 0(973)943-844220 [place] [address] 01-04-2023 07:48-0400 Inhaled oxygen flow rate 2 L/min Dr. Sudhir Ochoa Work Phone: 8(691)970-555520 [place] [address] 01-04-2023 06:00-0400 Body mass index (BMI) [Ratio] 31.7 kg/m2 Dr. Sudhir Ochoa Work Phone: 8(401)662-293020 [place] [address] 01-04-2023 06:00-0400 Body weight 86.[address] Sudhir Ochoa Work Phone: 0(291)998-659820 [place] [address] 01-02-2023 12:39-0400 Body temperature 97.7 [degF] Dr. Sudhir Ochoa Work Phone: 3(834)499-319020 [place] [address] 01-02-2023 12:39-0400 Diastolic blood pressure 87 mm[Hg] Dr. Sudhir Ochoa Work Phone: 4(166)272-517920 [place] [address] 01-02-2023 12:39-0400 Heart rate 84 /min Dr. Sudhir Ochoa Work Phone: 4(542)970-386620 [place] [address] 01-02-2023 12:39-0400 Respiratory rate 26 /min Dr. Sudhir Ochoa Work Phone: 2(500)895-316720 [place] [address] 01-02-2023 12:39-0400 SaO2% (BldA) [Mass fraction] 94 % Dr. Sudhir Ochoa Work Phone: 8(442)357-106120 [place] [address] 01-02-2023 12:39-0400 Systolic blood pressure 136 mm[Hg] Dr. Sudhir Ochoa Work Phone: 1(560)295-117120 [place] [address] 01-02-2023 09:22-0400 Body height [address] Sudhir Ochoa Work Phone: 6(328)868-869920 [place] [address] 01-02-2023 09:22-0400 Body mass index (BMI) [Ratio] 31 kg/m2 Dr. Sudhir Ochoa Work Phone: 3(897)698-263020 [place] [address] 01-02-2023 09:22-0400 Body weight 87.[address] Sudhir Ochoa Work Phone: 1(488)185-886220 [place] [address] 09-30-2022 23:31-0500 Diastolic blood pressure 89 mm[Hg] Dr. Sudhir Ochoa Work Phone: 5(240)521-363016 [place] [address] 09-30-2022 23:31-0500 Heart rate 71 /min Dr. Sudhir Ochoa Work Phone: 5(711)472-706016 [place] [address] 09-30-2022 23:31-0500 Respiratory rate 15 /min Dr. Sudhir Ochoa Work Phone: 9(537)858-236216 [place] [address] 09-30-2022 23:31-0500 SaO2% (BldA) [Mass fraction] 96 % Dr. Sudhir Ochoa Work Phone: 6(556)244-073616 [place] [address] 09-30-2022 23:31-0500 Systolic blood pressure 130 mm[Hg] Dr. Sudhir Ochoa Work Phone: 8(822)412-511916 [place] [address] 09-30-2022 21:34-0500 Body height 167.[address] Sudhir Ochoa Work Phone: 1(085)295-948916 [place] [address] 09-30-2022 21:34-0500 Body mass index (BMI) [Ratio] 30.1 kg/m2 Dr. Sudhir Ochoa Work Phone: 2(422)219-327116 [place] [address] 09-30-2022 21:34-0500 Body temperature 97.5 [degF] Dr. Sudhir Ochoa Work Phone: 2(335)344-218716 [place] [address] 09-30-2022 21:34-0500 Body weight 84.[address] Sudhir Ochoa Work Phone: 5(078)957-814616 [place] [address] 09-23-2022 14:37-0500 Body height 162.6 cm Nora Crespo 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.[employer] Work Phone: [facility] 09-23-2022 14:37-0500 Body weight 83.01 kg Nora Crespo 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.[employer] Work Phone: 3(569)226-379499 [place] [address] 09-23-2022 14:37-0500 Diastolic blood pressure 60 mm[Hg] Nora Mahendra 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.[employer] Work Phone: [facility] 09-23-2022 14:37-0500 Heart rate 58 /min Nora Mahendra 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.[employer] Work Phone: [facility] 09-23-2022 14:37-0500 SaO2% (BldA) [Mass fraction] 92 % Nora Mahendra 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.[employer] Work Phone: [facility] 09-23-2022 14:37-0500 Systolic blood pressure 108 mm[Hg] Nora Mahendra 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.[employer] Work Phone: 0(080)509-072876 [place] [address] 09-17-2022 12:58-0500 Body height 167.[address] Sudhir Ochoa Work Phone: 5(475)787-082420 [place] [address] 09-17-2022 12:46-0500 Body mass index (BMI) [Ratio] 30.4 kg/m2 Dr. Sudhir Ochoa Work Phone: 3(784)537-210616 [place] [address] 09-17-2022 12:46-0500 Body temperature 99.3 [degF] Dr. Sudhir Ochoa Work Phone: 1(819)844-696720 [place] [address] 09-17-2022 12:46-0500 Body weight 85.[address] Sudhir Ochoa Work Phone: 9(029)715-039020 [place] [address] 09-17-2022 12:46-0500 Diastolic blood pressure 61 mm[Hg] Dr. Sudhir Ochoa Work Phone: 9(604)731-183620 [place] [address] 09-17-2022 12:46-0500 Heart rate 89 /min Dr. Sudhir Ochoa Work Phone: 5(112)397-324120 [place] [address] 09-17-2022 12:46-0500 Respiratory rate 20 /min Dr. Sudhir Ochoa Work Phone: 7(892)539-195020 [place] [address] 09-17-2022 12:46-0500 SaO2% (BldA) [Mass fraction] 95 % Dr. Sudhir Ochoa Work Phone: 3(556)556-844316 [place] [address] 09-17-2022 12:46-0500 Systolic blood pressure 91 mm[Hg] Dr. Sudhir Ochoa Work Phone: 6(792)549-228420 [place] [address] 09-02-2022 21:40-0500 Respiratory rate 18 /min Dr. Sudhir Ochoa Work Phone: 3(269)589-394720 [place] [address] 09-02-2022 19:08-0500 Body height 167.[address] Sudhir Ochoa Work Phone: 4(816)710-393220 [place] [address] Work Phone: 09-02-2022 19:08-0500 Body mass index (BMI) [Ratio] 29 kg/m2 Dr. Sudhir Ochoa Work Phone: 7(629)079-159920 [place] [address] 09-02-2022 19:08-0500 Body temperature 97.2 [degF] Dr. Sudhir Ochoa Work Phone: 9(923)594-805620 [place] [address] 09-02-2022 19:08-0500 Body weight 81.[address] Sudhir Ochoa Work Phone: 7(117)123-455420 [place] [address] 09-02-2022 19:08-0500 Diastolic blood pressure 100 mm[Hg] Dr. Sudhir Ochoa Work Phone: 4(829)478-816620 [place] [address] 09-02-2022 19:08-0500 Heart rate 84 /min Dr. Sudhir Ochoa Work Phone: 1(642)477-351620 [place] [address] 09-02-2022 19:08-0500 SaO2% (BldA) [Mass fraction] 97 % Dr. Sudhir Ochoa Work Phone: 7(522)560-826420 [place] [address] 09-02-2022 19:08-0500 Systolic blood pressure 140 mm[Hg] Dr. Sudhir Ochoa Work Phone: 0(642)018-378520 [place] [address] 08-30-2022 16:10-0500 Body temperature 98.6 [degF] Dr. Sudhir Ochoa Work Phone: 2(670)458-767620 [place] [address] 08-30-2022 16:10-0500 Diastolic blood pressure 78 mm[Hg] Dr. Sudhir Ochoa Work Phone: 2(350)468-597316 [place] [address] 08-30-2022 16:10-0500 Heart rate 78 /min Dr. Sudhir Ochoa Work Phone: 4(078)795-046520 [place] [address] 08-30-2022 16:10-0500 Respiratory rate 16 /min Dr. Sudhir Ochoa Work Phone: 0(211)555-188620 [place] [address] 08-30-2022 16:10-0500 SaO2% (BldA) [Mass fraction] 99 % Dr. Sudhir Ochoa Work Phone: 9(011)673-466620 [place] [address] 08-30-2022 16:10-0500 Systolic blood pressure 126 mm[Hg] Dr. Sudhir Ochoa Work Phone: 2(559)409-647520 [place] [address] 08-30-2022 13:03-0500 Body height 167.[address] Sudhir Ochoa Work Phone: 5(275)511-174020 [place] [address] Work Phone: 08-30-2022 13:03-0500 Body mass index (BMI) [Ratio] 30.2 kg/m2 Dr. Sudhir Ochoa Work Phone: 6(497)975-484820 [place] [address] 08-30-2022 13:03-0500 Body weight 84.[address] Sudhir Ochoa Work Phone: 6(501)478-323120 [place] [address] 08-23-2022 15:20-0500 Diastolic blood pressure 98 mm[Hg] Dr. Sudhir Ochoa Work Phone: 9(487)326-397320 [place] [address] 08-23-2022 15:20-0500 Heart rate 68 /min Dr. Sudhir Ochoa Work Phone: 9(056)390-482320 [place] [address] 08-23-2022 15:20-0500 Respiratory rate 16 /min Dr. Sudhir Ochoa Work Phone: 9(612)648-891620 [place] [address] 08-23-2022 15:20-0500 SaO2% (BldA) [Mass fraction] 99 % Dr. Sudhir Ochoa Work Phone: 3(045)929-753520 [place] [address] 08-23-2022 15:20-0500 Systolic blood pressure 132 mm[Hg] Dr. Sudhir Ochoa Work Phone: [facility] 08-23-2022 12:53-0500 Body temperature 98 [degF] Dr. Sudhir Ochoa Work Phone: [facility] 08-23-2022 11:18-0500 Body height 167.[address] Sudhir Ochoa Work Phone: [facility] Work Phone: 08-23-2022 11:18-0500 Body mass index (BMI) [Ratio] 32.5 kg/m2 Dr. Sudhir Ochoa Work Phone: 3(304)020-937216 [place] [address] 08-23-2022 11:18-0500 Body weight 91.[address] Sudhir Ochoa Work Phone: 2(390)810-773416 [place] [address] 08-11-2022 11:38-0500 Body height 167.[address] Sudhir Ochoa Work Phone: 9(758)488-566516 [place] [address] Work Phone: 08-11-2022 11:38-0500 Body weight 81.[address] Sudhir Ochoa Work Phone: [facility] 08-08-2022 23:52-0500 Diastolic blood pressure 82 mm[Hg] Dr. Sudhir Ochoa Work Phone: [facility] 08-08-2022 23:52-0500 Heart rate 80 /min Dr. Sudhir Ochoa Work Phone: 3(115)245-065916 [place] [address] 08-08-2022 23:52-0500 Respiratory rate 15 /min Dr. Sudhir Ochoa Work Phone: 0(001)365-199616 [place] [address] 08-08-2022 23:52-0500 SaO2% (BldA) [Mass fraction] 98 % Dr. Sudhir Ochoa Work Phone: 4(635)608-892516 [place] [address] 08-08-2022 23:52-0500 Systolic blood pressure 152 mm[Hg] Dr. Sudhir Ochoa Work Phone: 8(651)465-422192 [address] 08-08-2022 20:06-0500 Body height 167.[address] Sudhir Ochoa Work Phone: 4(178)670-948720 [place] [address] Work Phone: 08-08-2022 20:06-0500 Body mass index (BMI) [Ratio] 30 kg/m2 Dr. Sudhir Ochoa Work Phone: 9(026)087-412720 [place] [address] 08-08-2022 20:06-0500 Body temperature 97.2 [degF] Dr. Sudhir Ochoa Work Phone: 4(277)449-733020 [place] [address] 08-08-2022 20:06-0500 Body weight 84.[address] Sudhir Ochoa Work Phone: 6(551)123-491720 [place] [address] 08-07-2022 08:56-0500 Body mass index (BMI) [Ratio] 29 kg/m2 Dr. Sudhir Ochoa Work Phone: 9(593)183-029320 [place] [address] 08-05-2022 15:26-0500 Body mass index (BMI) [Ratio] 29 kg/m2 Dr. Sudhir Ochoa Work Phone: 3(001)975-693720 [place] [address] 08-05-2022 15:26-0500 Body temperature 98 [degF] Dr. Sudhir Ochoa Work Phone: 2(923)126-497920 [place] [address] 08-05-2022 15:26-0500 Body weight 81.[address] Sudhir Ochoa Work Phone: 4(230)504-573220 [place] [address] 08-05-2022 15:26-0500 Diastolic blood pressure 88 mm[Hg] Dr. Sudhir Ochoa Work Phone: 1(527)759-005820 [place] [address] 08-05-2022 15:26-0500 Heart rate 101 /min Dr. Sudhir Ochoa Work Phone: 6(038)560-967120 [place] [address] 08-05-2022 15:26-0500 Respiratory rate 18 /min Dr. Sudhir Ochoa Work Phone: 5(147)785-390520 [place] [address] 08-05-2022 15:26-0500 SaO2% (BldA) [Mass fraction] 95 % Dr. Sudhir Ochoa Work Phone: [facility] 08-05-2022 15:26-0500 Systolic blood pressure 154 mm[Hg] Dr. Sudhir Ochoa Work Phone: [facility] 08-04-2022 05:07-0500 Diastolic blood pressure 88 mm[Hg] [facility] 08-04-2022 05:07-0500 Systolic blood pressure 158 mm[Hg] [facility] 08-04-2022 01:08-0500 Body height 167.64 cm [facility] Work Phone: 08-04-2022 01:08-0500 Body mass index (BMI) [Ratio] 29.3 kg/m2 [facility] 08-04-2022 01:08-0500 Body temperature 97.3 [degF] [facility] 08-04-2022 01:08-0500 Body weight 82.5 kg [facility] 08-04-2022 01:08-0500 Heart rate 91 /min [facility] 08-04-2022 01:08-0500 Respiratory rate 18 /min [facility] 08-04-2022 01:08-0500 SaO2% (BldA) [Mass fraction] 98 % [facility] 08-03-2022 00:33-0500 Diastolic blood pressure 87 mm[Hg] [facility] 08-03-2022 00:33-0500 Heart rate 77 /min [facility] 08-03-2022 00:33-0500 Respiratory rate 16 /min [facility] 08-03-2022 00:33-0500 SaO2% (BldA) [Mass fraction] 95 % [facility] 08-03-2022 00:33-0500 Systolic blood pressure 156 mm[Hg] [facility] 08-02-2022 20:35-0500 Body temperature 97.3 [degF] [facility] 08-02-2022 20:33-0500 Body mass index (BMI) [Ratio] 25.8 kg/m2 [facility] 08-02-2022 20:33-0500 Body weight 72.57 kg [facility] 06-29-2022 11:18-0400 Diastolic blood pressure 98 mm[Hg] [facility] 06-29-2022 11:18-0400 Heart rate 74 /min [facility] 06-29-2022 11:18-0400 SaO2% (BldA) [Mass fraction] 99 % [facility] 06-29-2022 11:18-0400 Systolic blood pressure 125 mm[Hg] [facility] 06-29-2022 10:17-0400 Respiratory rate 15 /min [facility] 06-29-2022 09:18-0400 Body height 168 cm [facility] Work Phone: 06-29-2022 09:18-0400 Body mass index (BMI) [Ratio] 29.9 kg/m2 [facility] 06-29-2022 09:18-0400 Body temperature 97.8 [degF] [facility] 06-29-2022 09:18-0400 Body weight 84.7 kg [facility] 06-09-2022 02:27-0400 Body temperature 98.2 [degF] [facility] 06-09-2022 02:27-0400 Diastolic blood pressure 89 mm[Hg] [facility] 06-09-2022 02:27-0400 Heart rate 74 /min [facility] 06-09-2022 02:27-0400 Respiratory rate 18 /min [facility] 06-09-2022 02:27-0400 SaO2% (BldA) [Mass fraction] 98 % [facility] 06-09-2022 02:27-0400 Systolic blood pressure 152 mm[Hg] [facility] 06-09-2022 00:12-0400 Body height 167.64 cm [facility] Work Phone: 06-09-2022 00:12-0400 Body mass index (BMI) [Ratio] 30.2 kg/m2 [facility] 06-09-2022 00:12-0400 Body weight 84.9 kg [facility] 06-04-2022 20:31-0400 Diastolic blood pressure 96 mm[Hg] [facility] 06-04-2022 20:31-0400 Heart rate 75 /min [facility] 06-04-2022 20:31-0400 Respiratory rate 15 /min [facility] 06-04-2022 20:31-0400 SaO2% (BldA) [Mass fraction] 98 % [facility] 06-04-2022 20:31-0400 Systolic blood pressure 157 mm[Hg] [facility] 06-04-2022 18:42-0400 Body height 167.64 cm [facility] Work Phone: 06-04-2022 18:42-0400 Body mass index (BMI) [Ratio] 29.8 kg/m2 [facility] 06-04-2022 18:42-0400 Body temperature 96.6 [degF] [facility] 06-04-2022 18:42-0400 Body weight 83.91 kg [facility] 02-26-2022 16:04-0400 Heart rate 76 /min [facility] Work Phone: 02-26-2022 16:04-0400 Respiratory rate 18 /min [facility] Work Phone: 02-26-2022 16:04-0400 SaO2% (BldA) [Mass fraction] 99 % [facility] Work Phone: 02-26-2022 12:17-0400 Body mass index (BMI) [Ratio] 25.8 kg/m2 [facility] Work Phone: 02-26-2022 12:17-0400 Body temperature 97.6 [degF] [facility] Work Phone: 02-26-2022 12:17-0400 Body weight 72.57 kg [facility] Work Phone: 02-26-2022 12:17-0400 Diastolic blood pressure 110 mm[Hg] [facility] Work Phone: 02-26-2022 12:17-0400 Systolic blood pressure 160 mm[Hg] [facility] Work Phone: 01-26-2022 20:07-0400 Diastolic blood pressure 68 mm[Hg] No Primary Care Physician [facility] Work Phone: 01-26-2022 20:07-0400 Heart rate 75 /min No Primary Care Physician [facility] Work Phone: 01-26-2022 20:07-0400 Respiratory rate 18 /min No Primary Care Physician [facility] Work Phone: 01-26-2022 20:07-0400 SaO2% (BldA) [Mass fraction] 96 % No Primary Care Physician [facility] Work Phone: 01-26-2022 20:07-0400 Systolic blood pressure 148 mm[Hg] No Primary Care Physician [facility] Work Phone: 01-26-2022 17:59-0400 Body temperature 98 [degF] No Primary Care Physician [facility] Work Phone: 01-26-2022 15:24-0400 Body height 165.1 cm No Primary Care Physician [facility] Work Phone: 01-26-2022 15:24-0400 Body mass index (BMI) [Ratio] 28.3 kg/m2 No Primary Care Physician [facility] Work Phone: 01-26-2022 15:24-0400 Body weight 77.11 kg No Primary Care Physician [facility] Work Phone: 01-20-2022 14:54-0400 SaO2% (BldA) [Mass fraction] 92 % No Primary Care Physician [facility] Work Phone: 01-20-2022 11:50-0400 Body temperature 98 [degF] No Primary Care Physician [facility] Work Phone: 01-20-2022 11:50-0400 Diastolic blood pressure 55 mm[Hg] No Primary Care Physician [facility] Work Phone: 01-20-2022 11:50-0400 Heart rate 57 /min No Primary Care Physician [facility] Work Phone: 01-20-2022 11:50-0400 Respiratory rate 20 /min No Primary Care Physician [facility] Work Phone: 01-20-2022 11:50-0400 Systolic blood pressure 95 mm[Hg] No Primary Care Physician [facility] Work Phone: 01-20-2022 03:49-0400 Body weight 87.8 kg No Primary Care Physician [facility] Work Phone: 01-17-2022 09:53-0400 Body height 165.1 cm No Primary Care Physician [facility] Work Phone: 01-17-2022 06:45-0400 Inhaled oxygen concentration 35 % No Primary Care Physician [facility] Work Phone: 01-17-2022 03:00-0400 Body mass index (BMI) [Ratio] 31.7 kg/m2 No Primary Care Physician [facility] Work Phone: 01-14-2022 16:12-0400 Body temperature 99.3 [degF] 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.[employer] Work Phone: [facility] 01-14-2022 16:12-0400 Body weight 84.28 kg 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.[employer] Work Phone: [facility] 01-14-2022 16:12-0400 Diastolic blood pressure 84 mm[Hg] 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.[employer] Work Phone: [facility] 01-14-2022 16:12-0400 Heart rate 112 /min 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.[employer] Work Phone: [facility] 01-14-2022 16:12-0400 Respiratory rate 20 /min 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.[employer] Work Phone: [facility] 01-14-2022 16:12-0400 SaO2% (BldA) [Mass fraction] 94 % 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.[employer] Work Phone: [facility] 01-14-2022 16:12-0400 Systolic blood pressure 146 mm[Hg] 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.[employer] Work Phone: [facility] 01-01-2022 04:13-0400 Diastolic blood pressure 110 mm[Hg] [facility] Work Phone: 01-01-2022 04:13-0400 Systolic blood pressure 158 mm[Hg] [facility] Work Phone: 01-01-2022 01:47-0400 Body height 167.64 cm [facility] Work Phone: 01-01-2022 01:47-0400 Body mass index (BMI) [Ratio] 29.5 kg/m2 [facility] Work Phone: 01-01-2022 01:47-0400 Body weight 83 kg [facility] Work Phone: 01-01-2022 01:43-0400 Body temperature 97.3 [degF] [facility] Work Phone: 01-01-2022 01:43-0400 Heart rate 86 /min [facility] Work Phone: 01-01-2022 01:43-0400 Respiratory rate 22 /min [facility] Work Phone: 01-01-2022 01:43-0400 SaO2% (BldA) [Mass fraction] 99 % [facility] Work Phone: 11-25-2021 22:03-0400 Diastolic blood pressure 105 mm[Hg] No Primary Care Physician [facility] Work Phone: 11-25-2021 22:03-0400 Heart rate 78 /min No Primary Care Physician [facility] Work Phone: 11-25-2021 22:03-0400 Respiratory rate 16 /min No Primary Care Physician [facility] Work Phone: 11-25-2021 22:03-0400 SaO2% (BldA) [Mass fraction] 96 % No Primary Care Physician [facility] Work Phone: 11-25-2021 22:03-0400 Systolic blood pressure 167 mm[Hg] No Primary Care Physician [facility] Work Phone: 11-25-2021 19:57-0400 Body height 165.1 cm No Primary Care Physician [facility] Work Phone: 11-25-2021 19:57-0400 Body mass index (BMI) [Ratio] 27.6 kg/m2 No Primary Care Physician [facility] Work Phone: 11-25-2021 19:57-0400 Body temperature 96.9 [degF] No Primary Care Physician [facility] Work Phone: 11-25-2021 19:57-0400 Body weight 75.29 kg No Primary Care Physician [facility] Work Phone: 11-17-2021 15:42-0400 Heart rate 105 /min No Primary Care Physician [facility] Work Phone: 11-17-2021 15:42-0400 Respiratory rate 16 /min No Primary Care Physician [facility] Work Phone: 11-17-2021 14:42-0400 Body mass index (BMI) [Ratio] 27.4 kg/m2 No Primary Care Physician [facility] Work Phone: 11-17-2021 14:42-0400 Body temperature 97.8 [degF] No Primary Care Physician [facility] Work Phone: 11-17-2021 14:42-0400 Body weight 77.11 kg No Primary Care Physician [facility] Work Phone: 11-17-2021 14:42-0400 Diastolic blood pressure 109 mm[Hg] No Primary Care Physician [facility] Work Phone: 11-17-2021 14:42-0400 SaO2% (BldA) [Mass fraction] 94 % No Primary Care Physician [facility] Work Phone: 11-17-2021 14:42-0400 Systolic blood pressure 143 mm[Hg] No Primary Care Physician [facility] Work Phone: 09-02-2021 13:46-0500 Body weight 79.9 kg No Primary Care Physician [facility] Work Phone: 09-02-2021 13:26-0500 Body temperature 97.7 [degF] No Primary Care Physician [facility] Work Phone: 09-02-2021 13:26-0500 Diastolic blood pressure 82 mm[Hg] No Primary Care Physician [facility] Work Phone: 09-02-2021 13:26-0500 Heart rate 87 /min No Primary Care Physician [facility] Work Phone: 09-02-2021 13:26-0500 Respiratory rate 18 /min No Primary Care Physician [facility] Work Phone: 09-02-2021 13:26-0500 SaO2% (BldA) [Mass fraction] 98 % No Primary Care Physician [facility] Work Phone: 09-02-2021 13:26-0500 Systolic blood pressure 130 mm[Hg] No Primary Care Physician [facility] Work Phone: 09-01-2021 12:00-0500 Body mass index (BMI) [Ratio] 28.4 kg/m2 No Primary Care Physician [facility] Work Phone: 07-26-2021 17:26-0500 Diastolic blood pressure 90 mm[Hg] [facility] 07-26-2021 17:26-0500 Heart rate 80 /min [facility] 07-26-2021 17:26-0500 Respiratory rate 18 /min [facility] 07-26-2021 17:26-0500 SaO2% (BldA) [Mass fraction] 98 % [facility] 07-26-2021 17:26-0500 Systolic blood pressure 135 mm[Hg] [facility] 07-26-2021 13:58-0500 Body temperature 98.01 [degF] [facility] 06-18-2021 11:41-0400 Body temperature 98.1 [degF] Paige Chacha DO Work Phone: [facility] Work Phone: 06-18-2021 11:41-0400 Diastolic blood pressure 89 mm[Hg] Paige Chacha DO Work Phone: [facility] Work Phone: 06-18-2021 11:41-0400 Heart rate 73 /min Paige Chacha DO Work Phone: [facility] Work Phone: 06-18-2021 11:41-0400 Respiratory rate 12 /min Paigetiffany Burnham DO Work Phone: [facility] Work Phone: 06-18-2021 11:41-0400 SaO2% (BldA) [Mass fraction] 94 % Paige Chacha DO Work Phone: [facility] Work Phone: 06-18-2021 11:41-0400 Systolic blood pressure 145 mm[Hg] Paige Chacha DO Work Phone: [facility] Work Phone: 06-15-2021 20:07-0400 Body height 167.6 cm Paige Chacha DO Work Phone: [facility] Work Phone: 06-15-2021 20:07-0400 Body mass index (BMI) [Ratio] 25.82 kg/m2 Paige Chacha DO Work Phone: [facility] Work Phone: 06-15-2021 20:07-0400 Body weight 72.58 kg Paige Chacha DO Work Phone: [facility] Work Phone: 06-14-2021 22:40-0400 Heart rate 84 [...] 09:27-0400 BMI (Body Mass Index) 30.02 kg/m2 [facility] Work Phone: 01-02-2017 09:27-0400 BP Diastolic 82 mm[Hg] [facility] Work Phone: 01-02-2017 09:27-0400 BP Systolic 120 mm[Hg] [facility] Work Phone: 01-02-2017 09:27-0400 Height 166.37 cm [facility] Work Phone: 01-02-2017 09:27-0400 Pulse (Heart Rate) 100 /min [facility] Work Phone: 01-02-2017 09:27-0400 Respiratory Rate 14 /min [facility] Work Phone: 01-02-2017 09:27-0400 Weight 83.1 kg [facility] Work Phone: 01-03-2016 08:40-0400 BSA (Body Surface Area) 1.92 m2 [facility] Work Phone: 12-16-2011 15:44-0400 Body Temperature 99.6 [degF] [facility] Work Phone: 12-16-2011 15:44-0400 BP Diastolic 111 mm[Hg] [facility] Work Phone: 12-16-2011 15:44-0400 BP Systolic 158 mm[Hg] [facility] Work Phone: 12-16-2011 15:44-0400 Pulse Oximetry 96 % [facility] Work Phone: Encounters Encounter Date Encounter Type Care Provider Facility Start: 05-23-2025 End: 05-23-2025 Follow-up encounter Ryanne Negro APRN.CNP Work Phone: [facility] [place] Start: 05-22-2025 End: 05-22-2025 Subsequent hospital visit by physician Xr On License Of [facility] Work Phone: Radiology Comment on above: Acute cough [R05.1] Start: 05-22-2025 End: 05-22-2025 ambulatory GABRIEL D TALAMPAS Facility:[facility] Start: 05-22-2025 End: 05-22-2025 Patient encounter procedure Rajiv Munoz 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.[employer] Work Phone: [facility] [place] Comment on above: Acute cough (Primary Dx); Pleural effusion, not elsewhere classified; Sinobronchitis Start: 05-12-2025 End: 05-12-2025 Refill Gabriel Galvan MD Work Phone: [facility] [place] Comment on above: Refill Request Start: 04-13-2025 End: 04-17-2025 Refill Gabriel Galvan MD Work Phone: [facility] [place] Comment on above: Refill Request Start: 04-04-2025 End: 04-04-2025 Telephone encounter Gabriel Galvan MD Work Phone: [facility] [place] Comment on above: Results Start: 03-28-2025 End: 03-28-2025 Telephone encounter Gabriel Galvan MD Work Phone: [facility] [place] Start: 03-28-2025 End: 03-28-2025 ambulatory NORA CRESPO Facility:[facility] Start: 03-28-2025 End: 03-28-2025 Patient encounter procedure Nora Crespo APRN.[employer] Work Phone: [facility] [place] Comment on above: Confusion (Primary D x); Anxiety; Neuropathy; Epigastric pain; Gastroesophageal reflux disease with esophagitis without hemorrhage; Nausea; Hypokalemia; Encounter for screening mammogram for breast cancer; Encounter for therapeutic drug monitoring; Vitamin D deficiency; IFG (impaired fasting glucose); Major depressive disorder, recurrent, moderate (HCC); Chronic pain syndrome; Insomnia, unspecified type; Dependence on supplemental oxygen; Seborrheic dermatitis of scalp Start: 03-28-2025 End: 03-28-2025 ambulatory NORA CRESPO Facility:[facility] Start: 03-13-2025 End: 03-13-2025 ambulatory Marty Beebe RNadjunct faculty for medical terminology Start: 03-13-2025 End: 03-13-2025 Telephone encounter Marcelo Bush MD Work Phone: [facility] Comment on above: Appointment (New sintia t date/time) Start: 02-09-2025 End: 02-09-2025 ambulatory GABRIEL GALVAN Facility:[facility] Start: 02-09-2025 End: 02-09-2025 Office outpatient new 60 minutes Grace Chaudhary MD, PhD Work Phone: General Surgery Comment on above: Paraesophageal herni a (Primary Dx); Esophageal dysphagia Start: 01-20-2025 End: 01-20-2025 ambulatory Scot York MA [facility] Start: 01-20-2025 End: 01-20-2025 Chart abstracting Lo Porter [facility] Work Phone: Psychology Start: 01-20-2025 End: 01-20-2025 Patient encounter procedure Scot York MA [facility] Start: 01-18-2025 End: 01-18-[address] Gabriel Galvan MD Work Phone: [facility] Work Phone: Start: 01-18-2025 End: 01-18-2025 Dr. Alok Forrest MD -Laboratory Work Phone: Start: 01-18-2025 End: 01-18-2025 Telephone encounter Helen Kearney RN General Surgery Start: 01-18-2025 End: 01-18-2025 ambulatory Alok Forrest Facility:[facility] Start: 01-17-2025 End: 01-17-2025 Telephone encounter Gabriel Galvan MD Work Phone: [facility] [place] Comment on above: Appointment (Hospita l f/u) Start: 01-13-2025 End: 01-13-2025 Rakesh [facility] Work Phone: Start: 01-13-2025 End: 01-13-2025 ambulatory Gabriel Galvan Facility:[facility] Start: 01-12-2025 End: 02-03-2025 Telephone encounter Gabriel Galvan MD Work Phone: [facility] [place] Comment on above: Patient Update Start: 01-11-2025 End: 01-11-2025 ambulatory Blayne Moya oxyacetylene cutterMechanical Insulator Management Comment on above: ACM MANUELA RN ( Chart review per payor request) Start: 01-10-2025 End: 01-10-2025 Dr. Javon Reyes MD -Emergency Departmen t Work Phone: Start: 01-10-2025 End: 01-10-2025 Emergency department patient visit Dr. Gabriel Galvan MD Work Phone: -Emergency Department Work Phone: Start: 01-10-2025 End: 01-12-2025 Telephone encounter Lyndsey Acevedo APRN.[employer]ER Work Phone: [facility] [place] Comment on above: Forms ([facility] assisted living form) Start: 01-05-2025 End: 03-07-2025 Follow-up encounter Lyndsey Acevedo APRN.[employer]D ROASTER Work Phone: [facility] [place] Start: 01-03-2025 End: 01-03-2025 Office outpatient visit 25 minutes Lyndsey Acevedo APRN.[employer]D RO[employer]ER Work Phone: [facility] [place] Comment on above: Chronic obstructive pulmonary disease, unspecified COPD type (HCC) (Primary Dx); Retana's esophagus without dysplasia; Left upper quadrant abdominal pain; Hypoxia; Neuropathy; Foamy urine; Hiatal hernia; Other chronic pain Start: 01-03-2025 End: 01-03-2025 ambulatory GABRIEL GALVAN Facility:[facility] Start: 12-30-2024 End: 12-30-2024 Dr. Waqas Hart MD -Emergency Department Work Phone: Start: 12-30-2024 End: 12-30-2024 Emergency department patient visit Dr. Gabriel Galvan MD Work Phone: -Emergency Department Work Phone: Start: 12-22-2024 End: 12-22-2024 ambulatory Brenda Mcginnis RN Work Phone: [employer] Comment on above: ACM MANUELA RN ( Chart review review per request of payor ) Start: 12-20-2024 End: 12-20-2024 Dr. Waqas Hart MD -Emergency Department Work Phone: Start: 12-20-2024 End: 12-20-2024 Emergency department patient visit Dr. Gabriel Galvan MD Work Phone: -Emergency Department Work Phone: Start: 12-06-2024 End: 12-06-2024 [facility] [place] Start: 12-06-2024 End: 12-06-2024 Patient encounter procedure Scot York MA [facility] [place] Comment on above: Population Health Na vigation Outreach ([employer] [facility]) Start: 11-21-2024 End: 11-21-2024 ambulatory Gabriel Galvan MD Work Phone: Pharm Pop Health Comment on above: Allied Health Visit (Medication Adherence Outreach ) Start: 11-14-2024 End: 11-16-2024 Telephone encounter Gabriel Galvan MD Work Phone: [facility] [place] Comment on above: Form: [facility] Start: 11-04-2024 End: 11-05-2024 Dr. Linus Byers MD -Emergency Department Work Phone: Start: 11-04-2024 End: 11-05-2024 Emergency department patient visit Dr. Linus Byers MD -Emergency Department Work Phone: Start: 10-26-2024 End: 10-26-2024 ambulatory Bimal Gonzalez RN Work Phone: [facility] Start: 10-26-2024 End: 10-26-2024 Telephone follow-up Bimal Gonzalez RN Work Phone: [employer] Comment on above: Transition Of Care ( [facility]- Follow-up Day 26) Started Weekly phone contact (Recurring) for Transitional Care Management Start: 10-12-2024 End: 10-12-2024 Telephone encounter Shruti Ontiveros MD Work Phone: General Surgery Comment on above: Outpatient Endoscopy Start: 10-10-2024 End: 10-10-2024 Patient Outreach Bimal Gonzalez RN Work Phone: [employer] Comment on above: Transition Of Care ( [facility] Folow-up Day 10) Started Weekly phone contact (Recurring) for Transitional Care Management Start: 10-04-2024 End: 10-10-2024 Telephone encounter Savannah Cruz [employer] [facility] Start: 10-04-2024 Encounter for preprocedural cardiovascular examination Rey Curtis [facility] Start: 10-04-2024 End: 10-04-[address] Rey Curtis MD [facility] Work Phone: Start: 10-04-2024 End: 10-04-[address] Rey Curtis [facility] Start: 10-04-2024 End: 10-04-2024 Dr. Rey Curtis MD [facility] Work Phone: Start: 10-04-2024 End: 10-04-2024 ambulatory [facility] Facility[facility] Start: 10-03-2024 End: 10-03-2024 Patient Outreach Bimal Gonzalez RN Work Phone: [employer] Comment on above: [facility] ( [facility] 09/30[facility]24[facility] Initial phone contact for Transitional Care Management, Started Weekly phone contact (Recurring) for Transitional Care Management Start: 09-30-2024 Non-patient / Non-visit Dr. Horace MARTINEZ [facility] Work Phone: Start: 09-30-2024 Dr. Jones ramirez MD [facility] Work Phone: Start: 09-29-2024 End: 09-30-2024 Orders Only Peyton Torres MD Work Phone: Respiratory [place] Comment on above: Chronic obstructive pulmonary disease, unspecified COPD type (HCC) (Primary Dx) Start: 09-29-2024 Non-patient / Non-visit Dr. Horace MARTINEZ [facility] Work Phone: Start: 09-29-2024 Dr. Jones ramirez MD [facility] Work Phone: Start: 09-28-2024 ambulatory Gabriel Ralph y:[facility] Start: 09-28-2024 End: 09-30-2024 Evaluation and management of inpatient Dr. Jones Gregory MD -Medical Surgical 3 Work Phone: Start: 09-28-2024 End: 09-30-2024 Dr. Jones Gregory MD -Medical Surgical 3 Work Phone: Start: 09-27-2024 End: 10-06-2024 Telephone encounter Gabriel Galvan MD Work Phone: [facility] [place] Comment on above: Patient Question Start: 09-15-2024 End: 10-09-2024 ambulatory Gabriel Galvan MD Work Phone: [facility] [place] Start: 09-15-2024 End: 10-09-2024 Patient encounter procedure Gabriel Galvan MD Work Phone: [facility] [place] Comment on above: Referral to Cardiolo gist Start: 09-14-2024 End: 09-14-2024 ambulatory GABRIEL GALVAN Facility:[facility] Start: 09-14-2024 End: 09-14-2024 ambulatory GABRIEL GALVAN Facility:[facility] Start: 09-14-2024 End: 09-14-2024 Office outpatient visit 25 minutes Gabriel Galvan MD Work Phone: [facility] [place] Comment on above: Chronic obstructive pulmonary disease, unspecified COPD type (HCC) (Primary Dx); Gastroesophageal reflux disease with esophagitis; Hypokalemia; Chronic pain of both ankles; Epigastric pain; Nausea; Type 2 diabetes mellitus with other specified complication, without long-term current use of insulin (HCC); Vitamin D deficiency; Mixed hyperlipidemia; Chronic pain of both feet; Pleurisy; Pulmonary emphysema, unspecified emphysema type (HCC); Encounter for long-term current use of medication Start: 08-26-2024 End: 08-26-2024 ambulatory [facility] Facility:[facility] Start: 08-26-2024 End: 08-26-2024 Patient encounter procedure Ryanne Negro APRN.CNP Work Phone: [place] [facility] Comment on above: Sore throat (Primary Dx); Respiratory infection Start: 08-21-2024 End: 08-21-2024 Emergency department patient visit [facility] Facility:[facility] Start: 07-20-2024 End: 07-25-2024 ambulatory Gabriel Galvan MD Work Phone: [facility] [place] Start: 07-07-2024 End: 07-07-2024 Emergency department patient visit [facility] Facility:[facility] Start: 06-24-2024 End: 06-24-2024 Admission to same day surgery center Obed Balbuena MD Work Phone: General Surgery Comment on above: Hiatal hernia (Prima ry Dx) Start: 06-24-2024 End: 06-24-2024 [facility] Facility:[facility] Start: 06-24-2024 End: 06-24-2024 Telemedicine consultation with patient Obed Balbuena MD Work Phone: General Surgery Start: 06-18-2024 End: 06-18-2024 Telephone encounter Alex RIBERA Work Phone: [place] [facility] Comment on above: Results Start: 06-17-2024 End: 06-17-2024 Office outpatient visit 15 minutes Chucky Zepeda APRN.CNP Work Phone: [facility] Comment on above: Acute cough (Primary Dx); Viral illness Start: 06-17-2024 End: 06-17-2024 ambulatory [facility] Facility:[facility] Start: 06-17-2024 End: 06-17-2024 Subsequent hospital visit by physician [place] On License Of [facility] Work Phone: Radiology Comment on above: Acute cough [R05.1] Start: 06-17-2024 End: 06-17-2024 Telephone encounter Chucky Zepeda APRN.[employer] Work Phone: [facility] Comment on above: Results Start: 06-03-2024 End: 06-03-2024 Telephone encounter Gabriel Galvan MD Work Phone: [facility] [place] Comment on above: Results Start: 05-30-2024 End: 05-30-2024 Telephone encounter Nora Crespo APRN.[employer] Work Phone: [facility] [place] Start: 05-30-2024 End: 05-30-2024 ambulatory NORA CRESPO Facility:[facility] Start: 05-30-2024 End: 05-30-2024 Patient encounter procedure Nora Crespo 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.[employer] Work Phone: [facility] [place] Comment on above: Hiatal hernia (Prima ry Dx); Epigastric pain; Encounter for therapeutic drug monitoring; Mixed hyperlipidemia; Type 2 diabetes mellitus with other specified complication, without long-term current use of insulin ([facility]); Vitamin D deficiency; Stress incontinence, female; OAB (overactive bladder); Essential hypertension, benign; Other chronic pain; Anxiety; Weight loss, non-intentional Start: 05-24-2024 End: 05-25-2024 Telephone encounter Gabriel Galvan MD Work Phone: Internal [facility] Comment on above: Refill Request Start: 05-10-2024 [facility] Start: 04-25-2024 End: 04-25-2024 Patient encounter procedure Darrell Tejada MD Work Phone: General Surgery Comment on above: Hiatal hernia; Generalized abdominal pain; History of abdominal abscess Start: 04-11-2024 End: 04-11-2024 Patient encounter procedure Nora Crespo APRN.[employer] Work Phone: [facility] [place] Comment on above: Hiatal hernia (Prima ry Dx); Generalized abdominal pain; History of abdominal abscess; Type 2 diabetes mellitus with other specified complication, without long-term current use of insulin (HCC); Essential hypertension, benign; Abdominal aneurysm (HCC); Chronic combined systolic and diastolic CHF (congestive heart failure) (HCC); Chronic bronchitis, unspecified chronic bronchitis type (HCC); Cardiomyopathy in disease classified elsewhere (HCC); Supraventricular tachycardia (HCC) Start: 03-21-2024 Telephone encounter Nora Cleav er 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.[employer] Work Phone: [facility] [place] Comment on above: Results Start: 03-18-2024 End: 03-18-2024 Subsequent hospital visit by physician [facility] Prep On License [facility] Comment on above: Generalized abdomina l pain [R10.84] Start: 03-15-2024 Telephone encounter Nora Cleav er 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.[employer] Work Phone: [facility] [place] Comment on above: Results Start: 03-14-2024 Telephone encounter Nora Cleav er 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.[employer] Work Phone: [facility] [place] Start: 03-14-2024 End: 03-14-2024 Patient encounter procedure Nora Mahendra 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.[employer] Work Phone: [facility] [place] Comment on above: Generalized abdomina l pain (Primary Dx); History of abdominal abscess; Retana's esophagus with dysplasia; Pneumonia due to infectious organism, unspecified laterality, unspecified part of lung; Encounter for therapeutic drug monitoring Start: 03-14-2024 ambulatory Gabriel Galvan Facilit y:[facility] Start: 01-20-2024 ambulatory DARRELL TEJADA [facility] ty:[facility] Start: 01-20-2024 End: 01-20-2024 Subsequent hospital visit by physician [facility] Comment on above: Arrived Infection in abdomen (HCC) [K65.9] Start: 01-18-2024 Refill Darrell donovan MD Work Phone: General Surgery Comment on above: Contrast allergy Start: 01-11-2024 E-mail encounter fro m caregiver Gerard Xavier PA-C Work Phone: Radiology Start: 01-11-2024 Follow-up encounter Gerard griffin PA-C Work Phone: Radiology Comment on above: actionable findings follow up Start: 01-05-2024 End: 01-05-2024 Patient encounter procedure Darrell Tejada MD Work Phone: General Surgery Comment on above: RUQ pain (Primary Dx ); Liver abscess; Infection in abdomen (HCC) Start: 12-29-2023 End: 12-29-2023 Emergency department patient visit TRAINING MANAGER-Gigi Crespo TRAINING MANAGER [facility]-Emergency Department Work Phone: Start: 12-29-2023 Registered Referred TRAINING MANAGER-Gigi Crespo TRAINING MANAGER [facility] Start: 12-23-2023 ambulatory Keegan Israel MD Work Phone: [place] Provider Adult Comment on above: CoPat Start Start: 12-23-2023 Telephone encounter Gabriel daley MD Work Phone: [facility] [place] Comment on above: Patient Update Start: 12-20-2023 End: 12-28-2023 Evaluation and management of inpatient PAIGE WINN Facility:[facility] Start: 12-19-2023 End: 12-20-2023 Emergency department patient visit NOT RECORDED PHYSICIAN Facility:B Start: 12-19-2023 End: 12-20-2023 Emergency department patient visit DR MERLINE CHRISTENSEN DO [facility] Start: 12-09-2023 Telephone encounter Gabriel daley MD Work Phone: [facility] [place] Comment on above: Patient Update Start: 12-07-2023 End: 12-07-2023 ambulatory LO WHITE Facility:[facility] Start: 11-30-2023 End: 12-12-2023 Evaluation and management of inpatient GABRIEL GALVAN Facility:[facility] Start: 11-30-2023 End: 11-30-2023 Emergency department patient visit Dr. Gabriel Galvan Work Phone: [facility]-Emergency Department Work Phone: Start: 11-30-2023 ambulatory Pascale stone RT(R) Radiology Comment on above: Radiology XR Start: 11-30-2023 Patient encounter procedure Pascale Fonseca RT(R) [facility] Start: 11-30-2023 End: 11-30-2023 Emergency department patient visit Dr. Gabriel Galvan Work Phone: [facility]-Emergency Department Work Phone: Start: 11-25-2023 End: 11-25-2023 Office outpatient visit 40 minutes Gabriel Galvan MD Work Phone: [facility] [place] Comment on above: Gait instability (Pr imary Dx); Ankle weakness; Peripheral neuropathic pain; Retana's esophagus with dysplasia; Lower abdominal pain Start: 11-19-2023 ambulatory Penny Francois (Pas) [facility] [place] Comment on above: Population Health Na vigation Outreach ([employer]) Start: 09-29-2023 End: 09-29-2023 Emergency department patient visit Dr. Rakesh Martinez Work Phone: [facility] Work Phone: Start: 09-29-2023 End: 09-29-2023 Dr. Rakesh Martinez Work Phone: [facility]-Emergency Department Work Phone: Start: 09-28-2023 Non-patient / Non-visit Dr. Maria Eugenia Galvan Work Phone: [facility] Start: 09-28-2023 End: 09-28-2023 Admission to same day surgery center Dr. Gabriel Galvan Work Phone: [facility]-Endoscopy Work Phone: Start: 09-28-2023 End: 09-28-[address] Rakesh Martinez Work Phone: [facility] Work Phone: Start: 09-28-2023 End: 09-28-2023 Dr. Rakesh Martinez Work Phone: [facility]-Endoscopy Work Phone: Start: 09-05-2023 End: 09-06-2023 Emergency department patient visit Dr. Gabriel Galvan Work Phone: [facility] Work Phone: Start: 09-05-2023 End: 09-06-2023 Dr. Gabriel Galvan Work Phone: [facility]-Emergency Department Work Phone: Start: 08-25-2023 End: 08-25-[address] Gabriel Galvan Work Phone: [facility] Gastro[facility] Work Phone: Start: 08-25-2023 End: 08-25-2023 Dr. Gabriel Galvan Work Phone: [facility] Gastro[facility] Work Phone: Start: 08-12-2023 ambulatory Gabriel gregory MD Work Phone: [facility] [place] Start: 07-29-2023 End: 07-29-2023 Emergency department patient visit Dr. Gabriel Galvan Work Phone: [facility]-Emergency Department Work Phone: Start: 07-29-2023 End: 07-29-2023 Dr. Gabriel Galvan Work Phone: [facility]-Emergency Department Work Phone: Start: 07-28-2023 Non-patient / Non-visit Dr. Maria Eugenia Galvan Work Phone: [facility] Start: 07-28-2023 End: 07-28-2023 Admission to same day surgery center Dr. Gabriel Galvan Work Phone: [facility]-Endoscopy Work Phone: Start: 07-28-2023 End: 07-28-[address] Gabriel Galvan Work Phone: [facility] Work Phone: Start: 07-28-2023 End: 07-28-2023 Dr. Gabriel Galvan Work Phone: [facility]-Endoscopy Work Phone: Start: 07-23-2023 Non-patient / Non-visit Dr. Maria Eugenia Galvan Work Phone: [facility] Work Phone: Start: 07-23-2023 Dr. Gabriel babin Work Phone: [facility] Work Phone: Start: 07-20-2023 Non-patient / Non-visit Dr. Maria Eugenia Galvan Work Phone: [facility] Start: 07-20-2023 Dr. Gabriel babin Work Phone: [facility] Start: 07-20-2023 End: 07-20-[address] Gabriel Galvan Work Phone: [facility] Work Phone: Start: 07-20-2023 End: 07-20-[address] [facility] Work [facility] Start: 07-20-2023 End: 07-20-2023 Dr. Gabriel Gal[facility] Start: 07-19-2023 End: 07-19-2023 Emergency department patient visit Dr. Gabriel Galvan Work Phone: [facility]-Emergency Department Work Phone: Start: 07-19-2023 End: 07-19-2023 Dr. Gabriel Galvan Work Phone: [facility]-Emergency Department Work Phone: Start: 07-16-2023 End: 07-16-[address] Gabriel Galvan Work Phone: [facility] Work Phone: Start: 07-16-2023 End: 07-16-[address] Gabriel Galvan Work Phone: [facility] Work Phone: Start: 07-16-2023 End: 07-16-2023 Dr. Gabriel Galvan Work Phone: [facility] Work Phone: Start: 07-16-2023 End: 07-16-[address] Gabriel Galvan Work Phone: [facility] Work Phone: Start: 07-16-2023 End: 07-16-2023 Dr. Gabriel Galvan Work Phone: [facility] Work Phone: Start: 06-25-2023 End: 06-25-[address] Gabriel Galvan Work Phone: [facility] Work Phone: Start: 06-25-2023 End: 06-25-2023 Dr. Gabriel Galvan Work Phone: [facility] Work Phone: Start: 06-24-2023 Non-patient / Non-visit Dr. Maria Eugenia Galvan Work Phone: [facility] Start: 06-24-2023 End: 06-24-2023 Admission to same day surgery center Dr. Gabriel Galvan Work Phone: [facility] Work Phone: Start: 06-24-2023 End: 06-24-[address] Gabriel Galvan Work Phone: [facility] Work Phone: Start: 06-24-2023 End: 06-24-2023 Dr. Gabriel Galvan Work Phone: [facility] Work Phone: Start: 06-23-2023 End: 06-23-2023 Emergency department patient [facility] Dr. [facility] Work [facility]: Start: 06-23-2023 End: 06-23-2023 Dr. Gabriel Galvan Work Phone: [facility] Work Phone: Start: 06-01-2023 End: 06-02-2023 Emergency department patient visit Dr. Gabriel Galvan [facility] Work [facility]: Start: 06-01-2023 End: 06-02-2023 Dr. Gabriel Galvan [facility] Work [facility]: Start: 05-22-2023 End: 05-22-[address] Gabriel Galvan Work Phone: [facility] Work Phone: Start: 05-22-2023 End: 05-22-2023 Dr. Gabriel Galvan Work Phone: [facility] Work Phone: Start: 05-04-2023 Telephone encounter Nora Cleav er 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.[employer] Work Phone: [facility] [place] Comment on above: Results (EMG) Start: 05-01-2023 End: 05-01-2023 ambulatory Emg 850) Neurology Comment on above: EMG Start: 05-01-2023 End: 05-01-2023 Patient encounter procedure Emg 1 Neur Janet (Max Weight: 850) JANET Start: 04-27-2023 Telephone encounter Nora Cleav er 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.[employer] Work Phone: [facility] [place] Comment on above: Results Start: 04-24-2023 End: 04-24-2023 Subsequent hospital visit by physician [facility] Work Phone: Radiology Comment on above: Chronic bronchitis, unspecified chronic bronchitis type (HCC) [J42] Start: 04-17-2023 Telephone encounter Nora Juventino harleen MICHEL Work Phone: [facility] Comment on above: Medication Problem Start: 04-16-2023 Telephone encounter Gabriel daley MD Work Phone: [facility] [place] Comment on above: Patient Request Start: 04-06-2023 Telephone encounter Gabriel daley MD Work Phone: [facility] Comment on above: Needs Authorization Start: 03-04-2023 End: 03-04-[address] Gabriel Galvan Work Phone: [facility] Vascular Surgery Work Phone: Start: 02-17-2023 Non-patient / Non-visit Dr. Kasey Serrano Work Phone: [facility] Start: 02-17-2023 End: 02-17-[address] Clyde Serrano [facility] Start: 02-16-2023 End: 02-16-[address] Clyde Serrano Work Phone: [facility] Work Phone: Start: 02-16-2023 End: 02-16-[address] Clyde Serrano Work Phone: [facility]/Neurology Start: 01-16-2023 Telephone encounter Gabriel daley MD Work Phone: [facility] [place] Comment on above: Medication Request Start: 01-16-2023 End: 01-16-2023 Emergency department patient visit Dr. Clyde Serrano Work Phone: [facility] Start: 01-15-2023 Telephone encounter Savannah Bhat Comment on above: Social Work Services Start: 01-14-2023 End: 01-14-2023 Emergency department patient visit Dr. Sudhir Ochoa Work Phone: [facility] Start: 01-13-2023 End: 01-13-2023 Patient encounter procedure Lyndsey Acevedo [employer]D [employer]ER Work Phone: [facility] [place] Comment on above: Shortness of breath (Primary Dx); Epigastric pain; Type 2 diabetes mellitus with other specified complication, without long-term current use of insulin (HCC); Cardiomyopathy in disease classified elsewhere ([facility]); Supraventricular tachycardia ([facility]); Acute exacerbation of chronic obstructive pulmonary disease (COPD) ([facility]); LV (left ventricular) mural thrombus; Chest pain, unspecified type; NSTEMI (non-ST elevated myocardial infarction) ([facility]); HFrEF (heart failure with reduced ejection fraction) ([facility]); Gastroesophageal reflux disease, unspecified whether esophagitis present Start: 01-12-2023 End: 01-13-2023 Emergency department patient visit Dr. Sudhir Ochoa Work Phone: [facility] Start: 01-10-2023 End: 01-10-2023 Emergency department patient visit Dr. Sudhir Ochoa Work Phone: [facility] Start: 01-05-2023 Patient Outreach Gabriel redding MD Work Phone: [facility] [place] Comment on above: Transition Of Care requesting prescript ion (cough) Start: 01-04-2023 Non-patient / Non-visit Dr. Madeline Ochoa Work Phone: [facility] Inpatient Physicians Start: 01-03-2023 Non-patient / Non-visit Dr. Madeline Ochoa Work Phone: [facility] Start: 01-02-2023 End: 01-04-2023 Evaluation and management of inpatient Dr. Sudhir Ochoa Work Phone: [facility] Start: 11-06-2022 Refill Gabriel gregory MD Work Phone: [facility] [place] Comment on above: Refill Request Patient Update Start: 10-10-2022 Telephone encounter Gabriel daley MD Work Phone: [facility] [place] Comment on above: Patient Update Start: 10-02-2022 Telephone encounter Gabriel daley MD Work Phone: [facility] [place] Comment on above: Patient Update; Medi cation Request Start: 09-30-2022 End: 09-30-2022 Emergency department patient visit Dr. Sudhir Ochoa Work Phone: [facility] Work Phone: Start: 09-30-2022 End: 09-30-2022 Dr. Sudhir Ochoa Work Phone: [facility] Start: 09-30-2022 Telephone encounter Nora canseco 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.[employer] Work Phone: Family [facility] Comment on above: Mental Status Change s Start: 09-30-2022 End: 09-30-2022 Subsequent hospital visit by physician [facility] Work Phone: Radiology Comment on above: Lower abdominal pain [R10.30] Start: 09-24-2022 Telephone encounter Nora canseco 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.[employer] Work Phone: [facility] [place] Comment on above: Results Start: 09-23-2022 End: 09-23-2022 Patient encounter procedure Nora Taylorr 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.[employer] Work Phone: [facility] [place] Comment on above: Epigastric pain (Karie cali Dx); Lower abdominal pain; Gastroesophageal reflux disease with esophagitis without hemorrhage; Smoker; Abdominal aneurysm; Bruit of left carotid artery; Hematuria, unspecified type; Chronic obstructive pulmonary disease, unspecified COPD type (HCC); Oral thrush; Neuropathy; Dizziness; Essential hypertension, benign; Encounter for therapeutic drug monitoring Start: 09-17-2022 End: 09-17-[address] Sudhir Ochoa Work Phone: [facility] Work Phone: Start: 09-17-2022 End: 09-17-[address] Sudhir [facility]cho[facility] Start: 09-17-2022 End: 09-17-2022 Dr. Sudhir [facility]choa [facility] Start: 09-17-2022 End: 09-17-[address] Sudhir Ochoa Work Phone: [facility] Start: 09-17-2022 End: 09-17-2022 Dr. Sudhir Ochoa Work Phone: [facility] Start: 09-10-2022 Refill Gabriel gregory MD Work Phone: [facility] [place] Comment on above: Refill Request Start: 09-02-2022 End: 09-02-2022 Emergency department patient visit Dr. Sudhir Ochoa Work Phone: [facility] Start: 09-02-2022 End: 09-02-2022 Dr. Sudhir Ochoa Work Phone: [facility] Start: 08-30-2022 End: 08-30-2022 Emergency department patient visit Dr. Sudhir Ochoa Work Phone: [facility] Start: 08-30-2022 End: 08-30-2022 Dr. Sudhir Ochoa Work Phone: [facility] Start: 08-27-2022 Telephone encounter Annamarie Lopez APRN.CNP Work Phone: [facility] [place] Comment on above: ER F/U Start: 08-23-2022 End: 08-23-2022 Emergency department patient visit Dr. Sudhir Ochoa Work Phone: [facility] Start: 08-23-2022 End: 08-23-2022 Dr. Sudhir Ochoa Work Phone: [facility] Start: 08-11-2022 Non-patient / Non-visit Dr. Madeline Ochoa Work Phone: [facility] Start: 08-11-2022 Dr. Sudhir Ochoa Work Phone: [facility] Start: 08-11-2022 End: 08-11-2022 Admission to same day surgery center Dr. Sudhir Ochoa Work Phone: [facility] Painter/Special Procedures Start: 08-11-2022 End: 08-11-[address] Sudhir Ochoa Work Phone: [facility] Work Phone: Start: 08-11-2022 End: 08-11-2022 Dr. Sudhir Ochoa Work Phone: [facility] Pain[facility]/Special Procedures Start: 08-08-2022 End: 08-09-2022 Emergency department patient visit Dr. Sudhir Ochoa Work Phone: [facility] Start: 08-08-2022 End: 08-09-2022 Dr. Sudhir Ochoa Work Phone: [facility] Start: 08-05-2022 End: 08-05-[address] Sudhir Ochoa Work Phone: [facility] Vascular Surgery Start: 08-05-2022 End: 08-05-2022 Dr. Sudhir Ochoa Work Phone: [facility] Vascular Surgery Start: 08-04-2022 End: 08-04-2022 Emergency department patient visit [facility] Start: 08-04-2022 End: 08-04-2022 Dr. Sudhir Ochoa Work Phone: [facility] Start: 08-02-2022 End: 08-03-2022 Emergency department patient visit [facility] Start: 08-02-2022 End: 08-03-2022 Dr. Sudhir Ochoa Work Phone: [facility] Start: 06-29-2022 End: 06-29-2022 Emergency department patient visit [facility] Start: 06-29-2022 End: 06-29-2022 Dr. Sudhir Ochoa Work Phone: [facility] Start: 06-09-2022 End: 06-09-2022 Emergency department patient visit [facility] Start: 06-09-2022 End: 06-09-2022 Dr. Sudhir Ochoa Work Phone: [facility] Start: 06-04-2022 End: 06-04-2022 Emergency department patient visit [facility] Start: 06-04-2022 End: 06-04-2022 Dr. Sudhir Ochoa Work Phone: [facility] Start: 02-26-2022 End: 02-26-2022 Emergency department patient visit [facility] Start: 01-26-2022 End: 01-26-2022 Emergency department patient visit No Primary Care Physician [facility] Start: 01-21-2022 Telephone encounter Chucky Martinez MD Work Phone: [facility] [place] Comment on above: Patient Update Start: 01-20-2022 Non-patient / Non-visit No Karie cali Care Physician [facility] Inpatient Physicians Start: 01-20-2022 Non-patient / Non-visit No Karie cali Care Physician [facility] Start: 01-19-2022 Non-patient / Non-visit No Karie cali Care Physician [facility] Inpatient Physicians Start: 01-19-2022 Non-patient / Non-visit No Karie cali Care Physician [facility] Start: 01-18-2022 Non-patient / Non-visit No Karie archibald Care Physician [facility] Inpatient Physicians Start: 01-18-2022 Non-patient / Non-visit No Karie archibald Care Physician [facility] Start: 01-18-2022 Non-patient / Non-visit No Karie cali Care Physician [facility] Start: 01-17-2022 Non-patient / Non-visit No Karie archibald Care Physician [facility] Start: 01-17-2022 End: 01-20-2022 Evaluation and management of inpatient No [facility] Start: 01-17-2022 Non-patient / Non-visit No Karie archibald Care Physician [facility] Start: 01-17-2022 Non-patient / Non-visit No Karie archibald Care Physician [facility] In[facility] Start: 01-14-2022 End: 01-14-2022 Patient encounter procedure Pascale Mata APRN.[employer] Work Phone: [place] [facility] Comment on above: COPD with exacerbati on (HCC) (Primary Dx); Cough Start: 01-01-2022 End: 01-01-2022 Emergency department patient visit [facility] Start: 11-25-2021 End: 11-25-2021 Emergency department patient visit No Primary Care Physician [facility] Start: 11-17-2021 End: 11-17-2021 Emergency department patient visit No Primary Care Physician [facility] Start: 09-02-2021 Non-patient / Non-visit No Karie archibald Care Physician [facility] Start: 09-02-2021 Non-patient / Non-visit No Karie archibald Care Physician [facility] Start: 09-01-2021 End: 09-02-2021 Evaluation and management of inpatient No [facility] Start: 09-01-2021 Non-patient / Non-visit No Karie archibald Care Physician [facility] Start: 09-01-2021 Non-patient / Non-visit No Karie archibald Care Physician [facility] Start: 07-26-2021 End: 07-26-2021 Emergency department patient visit [facility] ED Comment on above: Rib contusion, left, initial encounter (Primary Dx); Fall, initial encounter Start: 06-15-2021 End: 06-18-2021 Evaluation and management of inpatient Paige Burnham DO Work Phone: [facility] Comment on above: COVID (Primary Dx); Paroxysmal supraventricular tachycardia (HCC); Hypoxia; Pneumonia due to infectious organism, unspecified laterality, unspecified part of lung Start: 06-14-2021 End: 06-15-2021 Evaluation and management of inpatient Juice Perez DO Work Phone: [facility] Start: 09-09-2019 Patient encounter status No Pr [facility] Care Physician [facility] Start: 06-24-2017 End: 09-23-2022 Patient encounter procedure Pascale Maat 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.[employer] Work Phone: [facility] Work Phone: Start: 06-24-2017 Patient encounter status Gertrudis Mata 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.[employer] Work Phone: [facility] Work Phone: Start: 12-22-2016 Patient encounter status Gertrudis Mata 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.[employer] Work Phone: [facility] Work Phone: Start: 06-05-2014 End: 09-23-2022 Patient encounter status Darrell Tejada MD Work Phone: [facility] Procedures Date Procedure Procedure Detail Performing Clinician Start: 05-22-2025 COVID & INFLUENZA A/B & RSV PCR, ROUTINE Rajiv Munoz 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.[employer] Work Phone: Start: 05-22-2025 Radiologic exam chest 2 views Rajiv Munoz 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.[employer] Work Phone: Start: 01-18-2025 Benzodiazepine measurement, urine Dr. Maria Eugenia Galvan MD Work Phone: Start: 01-18-2025 Cocaine measurement, urine Dr. Gabriel Galvan MD Work Phone: Start: 01-18-2025 Methadone measurement, urine Dr. Gabriel Galvan MD Work Phone: Start: 01-18-[address] Gabriel Galvan MD Work Phone: Start: 01-18-[address] Gabriel Galvan MD Work Phone: Start: 01-10-2025 Urine microscopy: red cells Dr. Gabriel Galvan MD Work Phone: Start: 01-10-2025 Urnls dip stick/tablet reagent auto microscopy Dr. Gabriel Galvan MD Work Phone: Start: 01-10-2025 Blood count smear mcrscp w/mnl difrntl wbc count Dr. Gabriel Galvan MD Work Phone: Start: 01-10-[address] Gabriel Galvan MD Work Phone: Start: 01-10-2025 Mean corpuscular hemoglobin concentration determination Dr. Gabriel Galvan MD Work Phone: Start: 01-10-2025 Nucleated red blood cell count procedure Dr. Gabriel Galvan MD Work Phone: Start: 01-10-2025 Platelet mean volume determination Dr. Gabriel Galvan MD Work Phone: Start: 01-03-2025 Urnls dip stick/tablet rgnt auto w/o microscopy Lyndseychristiano Acevedo [employer]ER Work Phone: Start: 12-30-2024 Plain chest X-ray Dr. Gabriel Galvan MD Work Phone: Start: 12-30-2024 CT of abdomen and pelvis without contrast Dr. Gabriel Galvan MD Work Phone: Start: 12-30-2024 Urine microscopy: red cells Dr. Gabriel Galvan MD Work Phone: Start: 12-30-2024 Urnls dip stick/tablet reagent auto microscopy Dr. Gabriel Galvan MD Work Phone: Start: 12-30-2024 Blood count smear mcrscp w/mnl difrntl wbc count Dr. Gabriel Galvan MD Work Phone: Start: 12-30-[address] Gabriel Galvan MD Work Phone: Start: 12-30-2024 Mean corpuscular hemoglobin concentration determination Dr. Gabriel Galvan MD Work Phone: Start: 12-30-2024 Nucleated red blood cell count procedure Dr. Gabriel Galvan MD Work Phone: Start: 12-30-2024 Platelet mean volume determination Dr. Gabriel Galvan MD Work Phone: Start: 12-30-[address] Gabriel Galvan MD Work Phone: Start: 12-20-2024 Plain chest X-ray Dr. Gabriel Galvan MD Work Phone: Start: 12-20-2024 Blood count smear mcrscp w/mnl difrntl wbc count Dr. Gabriel Galvan MD Work Phone: Start: 12-20-2024 Calculation of international normalized ratio Dr. Gabriel Galvan MD Work Phone: Start: 12-20-2024 Mean corpuscular hemoglobin concentration determination Dr. Gabriel Galvan MD Work Phone: Start: 12-20-2024 Nucleated red blood cell count procedure Dr. Gabriel Galvan MD Work Phone: Start: 12-20-2024 Platelet mean volume determination Dr. Gabriel Galvan MD Work Phone: Start: 11-04-2024 X-ray of chest, PA and lateral views Dr. Gabriel Galvan MD Work Phone: Start: 11-04-2024 Blood count smear mcrscp w/mnl difrntl wbc count Dr. Gabriel Galvan MD Work Phone: Start: 11-04-[address] Gabriel Galvan MD Work Phone: Start: 11-04-2024 Mean corpuscular hemoglobin concentration determination Dr. Gabriel Galvan MD Work Phone: Start: 11-04-2024 Nucleated red blood cell count procedure Dr. Gabriel Galvan MD Work Phone: Start: 11-04-2024 Platelet mean volume determination Dr. Gabriel Galvan MD Work Phone: Start: 10-04-2024 Evaluation of diagnostic study results Dr. Gabriel Galvan MD Work Phone: Start: 09-30-[address] Gabriel Galvan MD Work Phone: Start: 09-30-2024 Blood count smear mcrscp w/mnl difrntl wbc count Dr. Gabriel Galvan MD Work Phone: Start: 09-30-2024 BUN/Creatinine ratio Dr. Gabriel Galvan MD Work Phone: Start: 09-30-[address] Gabriel Galvan MD Work Phone: Start: 09-30-2024 Mean corpuscular hemoglobin concentration determination Dr. Gabriel Galvan MD Work Phone: Start: 09-30-2024 Measurement of renal function Dr. Gabriel Galvan MD Work Phone: Start: 09-30-2024 Nucleated red blood cell count procedure Dr. Gabriel Galvan MD Work Phone: Start: 09-30-2024 Platelet mean volume determination Dr. Gabriel Galvan MD Work Phone: Start: 09-28-[address] Gabriel Galvan MD Work Phone: Start: 09-28-2024 SARS-CoV-2, Influenza & RSV (PCR) Dr. Maria Eugenia Galvan MD Work Phone: Start: 09-28-2024 Dr. Gabriel Galvan MD Work Phone: Start: 09-28-2024 Plain chest X-ray Dr. Gabriel Galvan MD Work Phone: Start: 08-26-2024 STREP A MOLECULAR (POC) [facility] Provider Start: 06-17-2024 Radiologic exam chest 2 views Chucky Zepeda 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.[employer] Work Phone: Start: 03-18-2024 Ct abdomen & pelvis w/o contrast material Nora Crespo 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.[employer] Work Phone: Start: 12-29-2023 Computed tomography of abdomen and pelvis with contrast TRAINING MANAGER-C Nora Crespo TRAINING MANAGER Start: 12-20-2023 History of cholecystectomy S/P laparoscopic cholecystectomy Gabriel Galvan MD Work Phone: Start: 12-01-2023 Antibody screen GABRIEL GALVAN Comment on above: Order Comment: Specimen Type: BLOOD SPEC IMENOrdering Facility: [facility] Address: [address] [place] [address] Performed By: #### T SCR ####[facility] [id number] [address] [place] Start: 11-30-2023 CT of chest without contrast Dr. Gabriel Galvan Work Phone: Start: 09-29-2023 Computed tomography of abdomen and pelvis with intravenous contrast Dr. Rakesh Martinez Work Phone: Start: 09-29-2023 Plain chest X-ray Dr. Rakesh Martinez Work Phone: Start: 09-28-[address] Rakesh Martinez Work Phone: Start: 09-05-2023 Computed tomography of abdomen and pelvis with contrast Dr. Gabriel Galvan Work Phone: Start: 07-29-2023 Computed tomography of abdomen and pelvis with intravenous contrast Dr. Gabriel Galvan Work Phone: Start: 07-28-2023 End: 07-28-[address] Gabriel Galvan Work Phone: Start: 07-28-[address] Gabriel Galvan Work Phone: Start: 07-28-[address] Gabriel Galvan Work Phone: Start: 07-20-2023 Cardiovascular stress test using pharmacologic stress agent Dr. Gabriel Galvan Work Phone: Start: 07-19-2023 Plain chest X-ray Dr. Gabriel Galvan Work Phone: Start: 06-25-[address] Gabriel Galvan Work Phone: Start: 06-24-[address] Gabriel Galvan Work Phone: Start: 06-23-2023 Plain chest X-ray Dr. Gabriel Galvan Work Phone: Start: 06-23-[address] Gabriel Galvan Work Phone: Start: 05-01-2023 Nerve conduction studies 5-6 studies Nora Crespo 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.[employer] Work Phone: Start: 04-24-2023 Radiologic exam chest 2 views Nora Juventino er 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.[employer] Work Phone: Start: 01-14-2023 US scan of gallbladder Dr. Sudhir Ochoa Work Phone: Start: 01-14-2023 Computed tomography of abdomen and pelvis with intravenous contrast Dr. Sudhir Ochoa Work Phone: Start: 01-12-2023 Plain chest X-ray Dr. Sudhir Ochoa Work Phone: Start: 01-10-2023 Plain chest X-ray Dr. Sudhir Ochoa Work Phone: Start: 01-02-2023 Plain chest X-ray Dr. Sudhir Ochoa Work Phone: Start: 09-30-2022 Us retroperitoneal real time w/image limited Nora Crespo 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.[employer] Work Phone: Start: 09-23-2022 Urnls dip stick/tablet rgnt auto w/o microscopy Nora Crespo 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.[employer] [employer] Work Phone: Start: 08-30-2022 CT angiography of chest with contrast Dr. Sudhir Ochoa Work Phone: Start: 08-23-2022 Plain chest X-ray Dr. Sudhir Ochoa Work Phone: Start: 08-08-2022 US scan of gallbladder Dr. Sudhir Ochoa Work Phone: Start: 08-04-2022 CT of abdominal aorta with contrast Start: 08-02-2022 CT of abdomen and pelvis without contrast Start: 06-29-2022 Plain chest X-ray Start: 06-09-2022 CT of chest without contrast Start: 06-09-2022 Plain chest X-ray Start: 02-26-2022 Plain chest X-ray Start: 02-26-2022 CT of abdomen and pelvis without contrast Start: 01-26-2022 CT angiography of chest with contrast No Primary Care Physician Start: 01-26-2022 Plain chest X-ray No Primary Care Physician Start: 01-26-2022 SARS-CoV-2 & FLU Antigen (Rapid) No Prim jony Care Physician Start: 01-17-2022 CT angiography of chest with contrast No Primary Care Physician Start: 01-17-2022 Plain chest X-ray No Primary Care Physician Start: 01-17-2022 Plain chest X-ray No Primary Care Physician Start: 01-01-2022 CT of head without contrast Start: 11-17-2021 Plain chest X-ray No Primary Care Physician Start: 09-02-2021 Nuclear Stress Test - Chemical No Primar y Care Physician Start: 09-01-2021 CT of head without contrast No Primary C are Physician Start: 09-01-2021 CT angiography of chest with contrast No Primary Care Physician Start: 09-01-2021 Plain chest X-ray No Primary Care Physician Start: 07-26-2021 Radex ribs uni w/posteroant ch minimum 3 views Codi RIBERA Work Phone: Start: 06-18-2021 Procalcitonin (pct) Jseus Hill MD Work Phone: Start: 06-17-2021 Fibrin dgradj products d-dimer quantitative Jesus Hill MD Work Phone: Start: 06-17-2021 Assay of lactate Jesus Hill MD Work Phone: Start: 06-17-2021 C-reactive protein Jesus Hill MD Work Phone: Start: 06-16-2021 Assay of ferritin Jesus Hill MD Work Phone: Start: 06-16-2021 C-reactive protein Jesus Hill MD Work Phone: Start: 06-15-2021 Ct angiography chest w/contrast/noncontrast Paige Burnham DO Work Phone: Start: 06-15-2021 Radiologic exam chest single view Lucrecia Burnham DO Work Phone: Start: 06-15-2021 POCT VENOUS Paige Burnham DO Work Phone: Start: 06-15-2021 Comprehensive metabolic panel Paige contreras DO Work Phone: Start: 06-15-2021 End: 06-15-2021 Ecg routine ecg w/least 12 lds w/i&r Paige Burnham DO Work Phone: Start: 06-14-2021 C-reactive protein Brady Beatty MD Work Phone: Start: 06-14-2021 Procalcitonin (pct) Brady Beatty MD Work Phone: Start: 06-14-2021 Drug screen class list a Brady Beatty MD Work Phone: Start: 06-14-2021 Iaad ia mult step method nos each organism Brady Beatty MD Work Phone: Start: 06-14-2021 STREP PNEUMONIAE ANTIGEN Brady Beatty MD Work Phone: Start: 06-14-2021 COVID-19, RAPID Juice G Nesheim DO Work Phone: Start: 06-14-2021 End: 06-14-2021 Basic metabolic panel calcium total Juice G Nesheim DO Work Phone: Start: 06-14-2021 Radiologic exam chest single view Juice G Nesheim DO Work Phone: Start: 06-14-2021 Ecg routine ecg w/least 12 lds w/i&r Juice G Nesheim DO Work Phone: Start: 01-02-2017 End: 01-19-2017 Echocardiography Danny Best MD Start: 04-16-2016 Colonoscopy Pascale Mata APRN.CNP Work Phone: Start: 01-03-2016 End: 01-03-2016 Follow Up Appt 1 year Alessio Cook PA-C Work Phone: Start: 01-03-2016 End: 01-03-2016 [...] Start: 12-16-2011 End: 01-14-2013 Chest x-ray Libby Dye MD Start: 2011 End: 2011 Lipid panel [AGGREGATE] Libby Dye MD Hysterectomy DR MERLINE Jacobo O Incision of gallbladder DR Gigi CHRISTENSEN DO Respiratory Panel (PCR) Dr. Sudhir Ochoa Work Phone: Streptococcus pyogen es antigen assay Streptococcus pyogen es antigen assay Dr. Sudhir Ochoa Work Phone: Urine culture Dr. Sudhir Ochoa Work Phone: Viral antigen assay Viral antigen assay Dr. Mary Ochoa Work Phone: Plan of Treatment Date Care Activity Detail Author Start: 04-16-2026 Colonoscopy COLONOSCOPY [facility] Start: 04-16-2026 COLORECTAL CANCER SCREENING COLORECTAL CANCER SCREENING [facility] Start: 04-16-2026 Screening for malignant neoplasm of colon [facility] Start: 03-28-2026 Annual PCP Team Chronic Disease Visit Annual PCP Team Chronic Disease Visit [facility] Start: 02-09-2026 BP Controlled (<130/80) BP Controlled (<130/80) [facility] Start: 01-03-2026 BP Controlled (<130/80) BP Controlled (<130/80) [facility] Start: 09-28-2025 Hemoglobin A1c measurement HbA1C [facility] Start: 09-23-2025 DIABETES SCREEN DIABETES SCREEN [facility] Start: 09-14-2025 Annual PCP Team Chronic Disease Visit Annual PCP Team Chronic Disease Visit [facility] Start: 09-14-2025 BP Controlled (<130/80) BP Controlled (<130/80) [facility] Start: 09-14-2025 Hepatitis B surface antibody level LDL Cholesterol [facility] Start: 05-30-2025 Annual PCP Team Chronic Disease Visit Annual PCP Team Chronic Disease Visit [facility] Start: 05-30-2025 Hepatitis B surface antibody level LDL Cholesterol [facility] Start: 05-24-2025 End: 05-24-2025 Patient encounter procedure [facility] Comment on above: 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]; hiatal hernia-(HGD on 06/24/23); ref by PCP/confirmation call-lm(mo) new [id number]'s esophagus without dysplasia & hiatal hernia-(HGD on 06/24/23); ref by PCP new [id number]'s esophagus without dysplasia & hiatal hernia-(HGD on 06/24/23); ref by PCP/confirmation call-lm(mo) Start: 05-08-2025 Influenza vaccination [facility] Start: 04-25-2025 BP Controlled (<130/80) BP Controlled (<130/80) [facility] Start: 04-17-2025 End: 04-17-2025 Patient encounter procedure 04/17/2025 2:40 PM EDT Office Visit [facility] [place] [address] [place], [place] [id number] Gabriel Galvan MD [address] [place], [place] [phone] 3 month follow up [facility] [place] Comment on above: 3 month follow up Start: 04-11-2025 Annual PCP Team Chronic Disease Visit Annual PCP Team Chronic Disease Visit [facility] Start: 04-04-2025 End: 04-04-2025 Patient encounter procedure [facility] Comment on above: 1 week follow up Encounter for screen ing mammogram for breast cancer [Z12.31] Start: 03-28-2025 End: 06-27-2025 25-hydroxyvitamin D3 [Mass/volume] in Serum or Plasma [facility] Comment on above: Expected: 03/28/2025, Expires: Start: 03-28-2025 End: 06-27-2025 Bacteria identified in Urine by Culture BACTERIAL CULTURE, URINE Microbiology Routine Confusion Expected: 03/28/2025, Expires: 06/27/2025 [facility] Comment on above: Expected: 03/28/2025, Expires: Start: 03-28-2025 End: 06-27-2025 Cobalamin (Vitamin B12) [Mass/volume] in Serum or Plasma [facility] Comment on above: Expected: 03/28/2025, Expires: Start: 03-28-2025 End: 06-27-2025 Comprehensive metabolic 2000 panel - Serum or Plasma [facility] Comment on above: Expected: 03/28/2025, Expires: Start: 03-28-2025 End: 06-27-2025 Ferritin [Mass/volume] in Serum or Plasma [facility] Comment on above: Expected: 03/28/2025, Expires: Start: 03-28-2025 End: 06-27-2025 Hemoglobin A1c in Blood [facility] Comment on above: Expected: 03/28/2025, Expires: Start: 03-28-2025 End: 06-27-2025 Iron and Iron binding capacity panel - Serum or Plasma [facility] Comment on above: Expected: 03/28/2025, Expires: Start: 03-28-2025 End: 06-27-2025 Magnesium [Mass/volume] in Serum or Plasma [facility] Comment on above: Expected: 03/28/2025, Expires: Start: 03-28-2025 End: 06-27-2025 Thyrotropin [Units/volume] in Serum or Plasma [facility] Comment on above: Expected: 03/28/2025, Expires: Start: 03-28-2025 End: 06-27-2025 Urinalysis complete panel - Urine URINALYSIS, WITH MICROSCOPIC Lab Routine Confusion Expected: 03/28/2025, Expires: 06/27/2025 [facility] Comment on above: Expected: 03/28/2025, Expires: Start: 03-22-2025 End: 03-22-2025 Patient encounter procedure 03/22/2025 11:00 AM EDT Office Visit [facility] [address] [place] [address] Marcelo Bush MD [address] [id number] HBC-Retana's esophagus without dysplasia [K22.70]; hiatal hernia-(HGD on 06/24/23); ref by PCP [facility] Comment on above: 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]; hiatal hernia-(HGD on 06/24/23); ref by PCP Start: 03-20-2025 End: 03-20-2025 Patient encounter procedure 03/20/2025 7:30 AM EDT Appointment Gastroenterology [address] [address] Sarai Hendrix MD [address] [place] [address] 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] Gastroenterology Comment on above: 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] Start: 03-16-2025 End: 03-16-2025 Patient encounter procedure 03/16/2025 2:30 PM EDT Office Visit [facility] [address] [place] [phone] Marcelo Bush MD [address] [phone] HBC-Retana's esophagus without dysplasia [K22.70]; hiatal hernia-(HGD on 06/24/23); ref by PCP [facility] Comment on above: 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]; hiatal hernia-(HGD on 06/24/23); ref by PCP Start: 03-14-2025 Annual PCP Team Chronic Disease Visit Annual PCP Team Chronic Disease Visit [facility] Start: 03-14-2025 BP Controlled (<130/80) BP Controlled (<130/80) [facility] Start: 03-14-2025 Hemoglobin A1c measurement HbA1C [facility] Start: 02-24-2025 End: 02-24-2025 Patient encounter procedure 02/24/2025 1:30 PM EDT Office Visit Pulmonary Medicine [address] [place] [address] Peyton Torres MD [address] [place] [place] [address] Chronic obstructive pulmonary disease, unspecified COPD type (HCC) [J44.9] Pulmonary Medicine Comment on above: Chronic obstructive pulmonary disease, u nspecified COPD type (HCC) [J44.9] Start: 02-24-2025 End: 02-24-2025 ambulatory [facility]ULM [facility] Comment on above: Chronic obstructive pulmonary disease, u nspecified COPD type (HCC) [J44.9] Start: 02-20-2025 End: 02-20-2025 Patient encounter procedure 02/20/2025 2:00 PM EDT Office Visit General Surgery [address] [address] Billy Parry MD [address] [place], [place] [phone] Hiatal hernia [K44.9]; Generalized abdominal pain [R10.84] General Surgery Comment on above: Hiatal hernia [K44.9]; Generalized abdom inal pain [R10.84] Start: 02-09-2025 End: 02-09-2025 Patient encounter procedure Pulmonary Me dicine Comment on above: Chronic obstructive pulmonary disease, u nspecified COPD type (HCC) [J44.9] New HH symptomatic w as offered Start: 02-09-2025 End: 02-09-2025 ambulatory PULM LAB [facility] Comment on above: Chronic obstructive pulmonary disease, u nspecified COPD type (HCC) [J44.9] Start: 01-26-2025 End: 01-26-2025 Patient encounter procedure 01/26/2025 1:00 PM EDT Office Visit General Surgery [address] [place] [address] Grace Chaudhary MD, PhD [address] [place] [address] New HH, symptomatic was offered surgery with Dr Raamchandran last year General Surgery Comment on above: New HH, symptomatic was offered surgery with Dr Ramachandran last year Start: 01-25-2025 End: 01-25-2025 Patient encounter procedure [facility] Comment on above: Retana's esophagus without dysplasia [K 22.70] HBC-Retana's esopha david without dysplasia [K22.70]; hiatal hernia-(HGD on 06/24/23); ref by PCP Start: 01-18-2025 Procedure [facility] Start: 01-16-2025 End: 01-16-2025 Patient encounter procedure 01/16/2025 10:00 AM EDT Office Visit [facility] [place] [address] [place], [place] [address] Gabriel Galvan MD [address] [place], [place] [phone] ED follow up [facility] [place] Comment on above: ED follow up Start: 01-10-2025 [facility] Start: 01-09-2025 End: 01-09-2025 Patient encounter procedure Internal Med [facility] [place] Comment on above: 3 month follow up Start: 12-30-2024 [facility] Start: 12-20-2024 [facility] Start: 12-20-2024 End: 12-20-2024 [facility] Start: 12-09-2024 End: 12-09-2024 Patient encounter procedure 12/09/2024 10:40 AM EDT Office Visit [facility] [place] [address] [place], [place] [address] Gabriel Galvan MD [address] [place], [place] [phone] kidney neck and chest pain, dizziness [facility] [place] Comment on above: kidney neck and chest pain, dizziness Start: 11-29-2024 Screening for malignant neoplasm of lung Lung Cancer Screening [facility] Start: 11-27-2024 Hemoglobin A1c measurement HbA1C [facility] Start: 11-24-2024 Annual PCP Team Chronic Disease Visit Annual PCP Team Chronic Disease Visit [facility] Start: 11-05-2024 [facility] Start: 11-04-2024 End: 11-04-2024 [facility] Start: 10-22-2024 End: 10-22-2024 Patient encounter procedure 10/22/2024 9:00 AM EST Office Visit [facility] [place] [address] [place], [place] [phone] Gabriel Galvan MD [address] [place] [address] hospital follow up [facility] [place] Comment on above: hospital follow up Start: 10-19-2024 End: 10-19-2024 Patient encounter procedure 10/19/2024 2:30 PM EST Appointment [facility] [address] [place] [address] Shruti Ontiveros MD [address] [place] [id number] Hiatal hernia [K44.9] [facility] Comment on above: Hiatal hernia [K44.9] Start: 10-18-2024 End: 10-18-2024 Nursing evaluation of patient and report 10/18/2024 9:30 AM EST Nurse Visit Gastroenterology [address] [address] Lab, Nurse Gi I [address] [place] [address] [facility]OM[facility] ESOPH[facility] Gastroenterology Comment on above: MANOMETRY ESOPHAGEAL Start: 10-17-2024 End: 10-17-2024 Patient encounter procedure 10/17/2024 11:00 AM EST Office Visit Pulmonary Medicine [address] [place], [place] [phone] Peyton Torres MD [address] [place], [place] [phone] copd Pulmonary Medicine Comment on above: copd Start: 10-17-2024 End: 10-17-2024 ambulatory PULM LAB [facility] Comment on above: copd Start: 10-11-2024 End: 10-11-2024 Patient encounter procedure Mammogram Comment on above: Encounter for screening mammogram for br east cancer [Z12.31] hospital follow up Start: 09-30-2024 Patient discharge [facility] Start: 09-28-2024 End: 09-29-2024 [facility] Start: 09-28-2024 Assessment of risk of venous thromboembolism [facility] Start: 09-28-2024 Insertion of catheter into peripheral vein [facility] Start: 09-28-2024 Measuring intake and output [facility] Start: 09-28-2024 Oxygen therapy [facility] Start: 09-28-2024 Providing care according to standard [facility] Start: 09-28-2024 Provision of activity privileges [facility] Start: 09-28-2024 Referral to service [facility] Start: 09-28-2024 Following clinical pathway protocol [facility] Start: 09-28-2024 Admission procedure [facility] Start: 09-28-2024 Inhalation therapy procedure [facility] Start: 09-28-2024 Patient referral to dietitian [facility] Start: 09-14-2024 End: 12-14-2024 25-hydroxyvitamin D3 [Mass/volume] in Serum or Plasma [facility] Comment on above: Expected: 09/14/2024, Expires: Start: 09-14-2024 End: 12-14-2024 CBC panel - Blood by Automated count [facility] Comment on above: Expected: 09/14/2024, Expires: Start: 09-14-2024 End: 12-14-2024 Comprehensive metabolic 2000 panel - Serum or Plasma [facility] Work Phone: Comment on above: Expected: 09/14/2024, Expires: Start: 09-14-2024 End: 12-14-2024 Hemoglobin A1c in Blood [facility] Comment on above: Expected: 09/14/2024, Expires: Start: 09-14-2024 End: 12-14-2024 LIPID PANEL, NONFASTING [facility] Comment on above: Expected: 09/14/2024, Expires: Start: 09-14-2024 End: 12-14-2024 Magnesium [Mass/volume] in Serum or Plasma [facility] Comment on above: Expected: 09/14/2024, Expires: Start: 09-07-2024 Advance Directive Discussion Advance Directive Discussion [facility] Start: 09-07-2024 Medicare Advantage Annual Wellness Visit Medicare Advantage Annual Wellness Visit [facility] Start: 07-12-2024 End: 07-12-2024 Patient encounter procedure 07/12/2024 3:40 PM EST Office Visit [facility] [place] [address] [place] [id number] Nora Crespo APRN.[employer] [address] [place], [place] [phone] 3 month follow-up [facility] [place] Comment on above: 3 month follow-up Start: 07-08-2024 End: 07-08-2024 Patient encounter procedure 07/08/2024 10:10 AM EDT Office Visit General Surgery [address] [place] [address] Scot Mcduffie MD [address] [place], [place] [phone] New consult HH referral Dr Tejada c/o some discomfort to epigastric and LUQ CT scan did show that she had probably about 30 to 40% of her stomach located within the chest itself. See Epic-h/o abdominal abscess RUQ after tony General Surgery Comment on above: New consult HH referral Dr Tejada c/o s ome discomfort to epigastric and LUQ CT scan did show that she had probably about 30 to 40% of her stomach located within the chest itself. See Epic-h/o abdominal abscess RUQ after tony Start: 06-07-2024 End: 06-07-2024 Patient encounter procedure 06/07/2024 11:00 AM EDT Office Visit General Surgery [address] [place], [place] [phone] Catherine Gill APRN.[employer] [address] [place] [address] discomfort to epigastric and LUQ CT scan did show that she had probably about 30 to 40% of her stomach located within the chest itself. See Epic-h/o abdominal abscess RUQ after tony General Surgery Comment on above: discomfort to epigastric and LUQ CT scan did show that she had probably about 30 to 40% of her stomach located within the chest itself. See Epic-h/o abdominal abscess RUQ after tony Start: 06-03-2024 End: 06-03-2024 Patient encounter procedure 06/03/2024 10:10 AM EDT Office Visit General Surgery [address] [place], [place] [phone] Scot Mcduffie MD [address] [place], [place] [phone] New consult HH referral Dr Tejada c/o some discomfort to epigastric and LUQ CT scan did show that she had probably about 30 to 40% of her stomach located within the chest itself. See Epic-h/o abdominal abscess RUQ after tony General Surgery Comment on above: New consult HH referral Dr Tejada c/o s ome discomfort to epigastric and LUQ CT scan did show that she had probably about 30 to 40% of her stomach located within the chest itself. See Epic-h/o abdominal abscess RUQ after tony Start: 05-30-2024 End: 08-29-2024 25-hydroxyvitamin D3 [Mass/volume] in Serum or Plasma [facility] Comment on above: Expected: 05/30/2024, Expires: Start: 05-30-2024 End: 08-29-2024 Comprehensive metabolic 2000 panel - Serum or Plasma [facility] Work Phone: Comment on above: Expected: 05/30/2024, Expires: Start: 05-30-2024 End: 08-29-2024 Hemoglobin A1c in Blood [facility] Comment on above: Expected: 05/30/2024, Expires: Start: 05-30-2024 End: 08-29-2024 LIPID PANEL, NONFASTING [facility] Comment on above: Expected: 05/30/2024, Expires: Start: 05-30-2024 End: 08-29-2024 Magnesium [Mass/volume] in Serum or Plasma [facility] Comment on above: Expected: 05/30/2024, Expires: Start: 05-30-2024 End: 08-29-2024 Microalbumin/Creatinine [Mass Ratio] in Urine ALBUMIN/CREATININE RATIO, URINE Lab Routine Type 2 diabetes mellitus with other specified complication, without long-term current use of insulin (HCC) Expected: 05/30/2024, Expires: 08/29/2024 [facility] Comment on above: Expected: 05/30/2024, Expires: Start: 05-30-2024 End: 05-30-2024 Patient encounter procedure 05/30/2024 1:00 PM EDT Office Visit Internal Medicine [place] [address] [place], [place] [phone] Nora Crespo APRN.[employer] [address] [place], [place] [phone] discharge from [facility] May 24, respitory failure with hypoxia [facility] [place] Comment on above: discharge from [facility] May 24, respitory failure with hypoxia Start: 05-08-2024 Covid-19 Vaccine ( season) Covid-19 Vaccine () [facility] Start: 05-08-2024 Covid-19 Vaccine ( season) Covid-19 Vaccine ( season) [facility] Start: 05-08-2024 Influenza vaccination [facility] Start: 04-25-2024 End: 04-25-2024 Patient encounter procedure 04/25/2024 2:45 PM EDT Office Visit General Surgery [address] [place], [place] [phone] Darrell Tejada MD [address] [place], [place] [phone] Hiatal hernia [K44.9]; Generalized abdominal pain [R10.84]; History of abdominal abscess [Z87.898] General Surgery Comment on above: Hiatal hernia [K44.9]; Generalized abdom inal pain [R10.84]; History of abdominal abscess [Z87.898] Start: 04-24-2024 ANNUAL PCP TEAM CHRONIC DISEASE VISIT ANNUAL PCP TEAM CHRONIC DISEASE VISIT [facility] Start: 04-24-2024 BP CONTROLLED (<130/80) BP CONTROLLED (<130/80) [facility] Start: 04-24-2024 Hepatitis B screening URINE ALBUMIN:CREATININE RATIO [facility] Start: 04-24-2024 Hepatitis B surface antibody level LDL CHOLESTEROL [facility] Start: 04-22-2024 LIPID SCREEN LIPID SCREEN [facility] Start: 04-15-2024 ANNUAL PCP TEAM CHRONIC DISEASE VISIT ANNUAL PCP TEAM CHRONIC DISEASE VISIT [facility] Start: 04-11-2024 End: 04-11-2024 Patient encounter procedure 04/11/2024 1:40 PM EDT Office Visit [facility] [place] [address] [place] [address] Nora Crespo APRN.[employer] [address] [place], [place] [phone] 4 week follow up [facility] [place] Comment on above: 4 week follow up Start: 04-07-2024 End: 04-07-2024 Patient encounter procedure 04/07/2024 10:30 AM EDT Office Visit [facility] [place] [address] [facility] [place] [address] Paige Fabian PA-C [address] [facility] [place] [address] [place] ([phone]) - ABD PAIN, nausea, adv to have someone with her at appt at all time, pt just waiting for assisted living to open for her [facility] [place] Comment on above: RICKEY ([phone]) - ABD PAIN, nausea, ad v to have someone with her at appt at all time, pt just waiting for assisted living to open for her Start: 03-28-2024 End: 03-28-2024 Patient encounter procedure 03/28/2024 2:15 PM EDT Office Visit General Surgery [address] [place] [address] Darrell Tejada MD [address] [place] [address] Follow up General Surgery Comment on above: Follow up Start: 03-18-2024 End: 03-18-2024 Patient encounter procedure Cat Scan Comment on above: Generalized abdominal pain [R10.84] Start: 03-14-2024 End: 06-13-2024 Amylase [Enzymatic activity/volume] in Serum or Plasma [facility] Comment on above: Expected: 03/14/2024, Expires: Start: 03-14-2024 End: 06-13-2024 Comprehensive metabolic 2000 panel - Serum or Plasma [facility] Work Phone: Comment on above: Expected: 03/14/2024, Expires: Start: 03-14-2024 End: 06-13-2024 Lipase [Enzymatic activity/volume] in Serum or Plasma [facility] Comment on above: Expected: 03/14/2024, Expires: Start: 02-25-2024 End: 02-25-2024 Patient encounter procedure 02/25/2024 1:25 PM EDT Office Visit [facility] [place] [address] [facility] [address] Paige Fabian PA-C [address] [facility] [address] ABD PAIN G[facility] Comment on above: ABD PAIN Start: 02-24-2024 End: 02-24-2024 Patient encounter procedure 02/24/2024 10:00 AM EDT Office Visit Cardiology [address] [id number] Yahaira Navarro MD [address] [place] [address] hypertension, heart disease Cardiology Comment on above: hypertension, heart disease Start: 01-19-2024 End: 01-19-2024 Patient encounter procedure [facility] Comment on above: Infection in abdomen ( Start: 01-12-2024 End: 01-12-2024 Patient encounter procedure 01/12/2024 11:30 AM EDT Office Visit Gastroenterology [address] [place] [address] Drake York MD [address] [place] [address] stomach issues, bioduct stint Gastroenterology Comment on above: stomach issues, bioduct stint Start: 12-29-2023 [facility] Start: 12-29-2023 [facility] Start: 11-30-2023 [facility] Start: 10-25-2023 Hemoglobin A1c measurement HbA1C [facility] Start: 10-25-2023 Hemoglobin A1c/Hemoglobin.total in Blood HBA1C [facility] Start: 09-29-2023 [facility] Start: 09-29-2023 End: 09-29-2023 [facility] Start: 09-28-2023 Egd ablate tumor polyp/lesion w/dilation& wire EGD LESION ABLATION [facility] Start: 09-28-2023 Patient discharge [facility] Start: 09-23-2023 ANNUAL PCP TEAM CHRONIC DISEASE VISIT ANNUAL PCP TEAM CHRONIC DISEASE VISIT [facility] Start: 09-23-2023 BP CONTROLLED (<130/80) BP CONTROLLED (<130/80) [facility] Start: 09-07-2023 Advance Directive Discussion Advance Directive Discussion [facility] Start: 07-29-2023 [facility] Start: 07-28-2023 Egd dilation gastric/duodenal stricture [facility] Start: 07-28-2023 Egd transoral biopsy single/multiple [facility] Start: 07-28-2023 Ercp remove calculi/debris biliary/pancreas duct [facility] Start: 07-28-2023 Ercp stent placement biliary/pancreatic duct [facility] Start: 07-28-2023 Endoscopic retrograde cholangiopancreatography ERCP Biliary/Pancreas [facility] Start: 07-28-2023 RF Guidance for endoscopy of Biliary ducts and Pancreatic duct-- W contrast retrograde [facility] Start: 07-28-2023 Patient discharge [facility] Start: 07-19-2023 [facility] Start: 07-19-2023 [facility] Start: 06-24-2023 Egd insert guide wire dilator passage esophagus [facility] Start: 06-24-2023 Egd transoral biopsy single/multiple EGD BIOPSY SINGLE/MULTIPLE [facility] Start: 06-24-2023 Patient discharge [facility] Start: 06-23-2023 [facility] Start: 06-23-2023 [facility] Start: 05-08-2023 Covid-19 Vaccine () Covid-19 Vaccine () [facility] Start: 05-08-2023 Influenza vaccination [facility] Start: 03-23-2023 Hemoglobin A1c/Hemoglobin.total in Blood HBA1C [facility] Start: 01-12-2023 [facility] Start: 01-10-2023 [facility] Start: 01-04-2023 Patient discharge [facility] Start: 01-04-2023 Inhalation therapy procedure [facility] Start: 01-02-2023 Application of intermittent pneumatic compression device [facility] Start: 01-02-2023 Oxygen therapy [facility] Start: 01-02-2023 Tobacco use cessation education [facility] Start: 01-02-2023 [facility] Start: 01-02-2023 Assessment of risk of venous thromboembolism [facility] Start: 01-02-2023 Insertion of catheter into peripheral vein [facility] Start: 01-02-2023 Measuring intake and output [facility] Start: 01-02-2023 Providing care according to standard [facility] Start: 01-02-2023 Provision of activity privileges [facility] Start: 01-02-2023 Referral to humanities and languages professor [facility] Start: 01-02-2023 Referral to occupational therapist [facility] Start: 01-02-2023 Referral to service [facility] Start: 01-02-2023 Speech therapy assessment [facility] Start: 01-02-2023 Following clinical pathway protocol [facility] Start: 01-02-2023 Influenza virus A and B and SARS-CoV-2 (COVID-19) Ag panel - Upper respiratory specim [facility] Start: 01-02-2023 Troponin I measurement [facility] Start: 01-02-2023 End: 01-02-2023 [facility] Start: 01-02-2023 Verification routine [facility] Start: 01-02-2023 Admission procedure [facility] Start: 01-02-2023 [facility] Start: 01-02-2023 Patient referral to dietitian [facility] Start: 09-30-2022 [facility] Start: 09-23-2022 End: 11-23-2022 Alpha 1 antitrypsin [Mass/volume] in Serum or Plasma [facility] Work Phone: Comment on above: Expected: 09/23/2022, Expires: 3 Start: 09-23-2022 End: 11-23-2022 Amylase [Enzymatic activity/volume] in Serum or Plasma [facility] Work Phone: Comment on above: Expected: 09/23/2022, Expires: 3 Start: 09-23-2022 End: 11-23-2022 Cobalamin (Vitamin B12) [Mass/volume] in Serum or Plasma [facility] Work Phone: Comment on above: Expected: 09/23/2022, Expires: 3 Start: 09-23-2022 End: 11-23-2022 Comprehensive metabolic 2000 panel - Serum or Plasma [facility] Work Phone: Comment on above: Expected: 09/23/2022, Expires: 3 Start: 09-23-2022 End: 11-23-2022 Lipase [Enzymatic activity/volume] in Serum or Plasma [facility] Work Phone: Comment on above: Expected: 09/23/2022, Expires: 3 Start: 09-07-2022 ADVANCE DIRECTIVE DISCUSSION ADVANCE DIRECTIVE DISCUSSION [facility] Start: 08-23-2022 DIABETES SCREEN DIABETES SCREEN [facility] Start: 08-23-2022 [facility] Start: 06-29-2022 Blood chemistry [facility] Work Phone: Start: 06-29-2022 [facility] Start: 06-17-2022 Creatinine measurement Creatinine monitoring [facility] Start: 06-17-2022 Potassium monitoring Potassium monitoring [facility] Start: 06-14-2022 Creatinine measurement Creatinine monitoring [facility] Work Phone: Start: 06-14-2022 Potassium monitoring Potassium monitoring [facility] Work Phone: Start: 05-08-2022 Influenza vaccination [facility] Start: 01-27-2022 Patient referral [facility] Work Phone: Start: 2021 ADVANCE DIRECTIVE DISCUSSION ADVANCE DIRECTIVE DISCUSSION [facility] Start: 2021 BONE DENSITY BONE DENSITY [facility] Start: 2021 Bone Density Screening Bone Density Screening [facility] Start: 2021 Pneumococcal Vaccine: 65+ (3 - PPSV23 or PCV20) Pneumococcal Vaccine: 65+ (3 - PPSV23 or PCV20) [facility] Start: 2021 Pneumococcal Vaccine: 65+ (3 of 3 - PPSV23 or PCV20) Pneumococcal Vaccine: 65+ (3 of 3 - PPSV23 or PCV20) [facility] Start: 2021 PNEUMOCOCCAL: 65+ (3 - PPSV23 if available, else PCV20) PNEUMOCOCCAL: 65+ (3 - PPSV23 if available, else PCV20) [facility] Start: 2021 PNEUMOCOCCAL: 65+ (3 - PPSV23 or PCV20) PNEUMOCOCCAL: 65+ (3 - PPSV23 or PCV20) [facility] Start: 2021 PNEUMOVAX AGE 65 AND OVER WITH 5YR LOOKBACK (#1) PNEUMOVAX AGE 65 AND OVER WITH 5YR LOOKBACK (#1) [facility] Start: 2021 Screening for osteoporosis Bone Density Screening [facility] Start: 09-02-2021 Patient referral [facility] Work Phone: Start: 06-17-2021 Annual Wellness Visit (AWV) Annual Wellness Visit (AWV) [facility] Start: 05-08-2021 Influenza vaccination Flu vaccine (#1) [facility] Start: 2020 ANNUAL PCP TEAM CHRONIC DISEASE VISIT ANNUAL PCP TEAM CHRONIC DISEASE VISIT [facility] Start: 04-22-2020 Hepatitis B surface antibody level LDL CHOLESTEROL [facility] Start: 12-30-2017 End: 12-30-2017 Appointment Appointment [facility] Work Phone: Start: 01-02-2017 End: 01-02-2017 Echocardiography Echocardiogram (complete) [facility] Work Phone: Start: 01-02-2017 End: 01-02-2017 Follow Up Appt 1 year Follow Up Appt 1 year [facility] Work Phone: Start: 01-02-2017 End: 01-02-2017 Follow Up Appt Other Follow Up Appt Other [facility] Work Phone: Start: 01-02-2017 End: 01-02-2017 PFM PFM [facility] Work Phone: Start: 2016 Hepatitis B Vaccine (1 of 3 - Risk 3-dose series) Hepatitis B Vaccine (1 of 3 - Risk 3-dose series) [facility] Start: 2016 RSV Vaccine (1 - 1-dose 60+ series) RSV Vaccine (1 - 1-dose 60+ series) [facility] Start: 2016 RSV Vaccine (1 - Risk 60-74 years 1-dose series) RSV Vaccine (1 - Risk 60-74 years 1-dose series) [facility] Start: 01-03-2016 End: 01-03-2016 Follow Up Appt 1 year Follow Up Appt 1 year [facility] Work Phone: Start: 01-03-2016 End: 01-03-2016 PFM PFM [facility] Work Phone: Start: 04-20-2013 End: 04-20-2013 Echocardiography Echocardiogram (complete) [facility] Work Phone: Start: 04-20-2013 End: 04-20-2013 Electrocardiogram, complete EKG (In office) [facility] Work Phone: Start: 04-20-2013 End: 04-20-2013 Follow Up Appt 6 months Follow Up Appt 6 months [facility] Work Phone: Start: 04-20-2013 End: 04-20-2013 PFM PFM [facility] Work Phone: Start: 06-21-2012 End: 01-26-2013 *Hepatic Function Panel *Hepatic Function Panel [facility] Work Phone: Start: 06-21-2012 End: 06-21-2012 Follow Up Appt 3 months Follow Up Appt 3 months [facility] Work Phone: Start: 06-21-2012 End: 01-26-2013 Lipid panel [AGGREGATE] *Lipid Profile [facility] Work Phone: Start: 12-16-2011 End: 01-14-2013 Chest x-ray X-Ray, Chest, PA & Lateral [facility] Work Phone: Start: 2011 End: 2011 Lipid panel [AGGREGATE] *Lipid Profile [facility] Work Phone: Start: 2006 Influenza vaccination LUNG CANCER SCREENING [facility] Start: 2006 Screening for malignant neoplasm of breast Breast cancer screen [facility] Start: 2006 Screening for malignant neoplasm of lung Lung Cancer Screening [facility] Start: 2006 Shingles Vaccine (1 of 2) Shingles Vaccine (1 of 2) [facility] Start: 2006 SHINGRIX VACCINE (1 of 2) SHINGRIX VACCINE (1 of 2) [facility] Start: 2001 COLOGUARD (FIT-DNA) COLOGUARD (FIT-DNA) [facility] Start: [address] COLONOGRAPHY [facility] Start: 2001 FECAL OCCULT BLOOD FECAL OCCULT BLOOD [facility] Start: 2001 Screening for malignant neoplasm of colon [facility] Start: 2001 SIGMOIDOSCOPY SIGMOIDOSCOPY [facility] Start: 1996 Mammography [facility] Start: 1996 Screening for malignant neoplasm of breast Mammogram Screening [facility] Start: 1986 Zoledronic acid therapy ALPHA-1 ANTITRYPSIN DEFICIENCY SCREENING [facility] Start: 11-29-1975 DTaP/Tdap/Td vaccine (1 - Tdap) DTaP/Tdap/Td vaccine (1 - Tdap) [facility] Start: 11-29-1975 Urine microalbumin profile [facility] Start: 1974 BP CONTROLLED (<130/80) BP CONTROLLED (<130/80) [facility] Start: 1974 Diabetic microalbuminuria test Diabetic microalbuminuria test [facility] Start: 1974 HIV SCREENING HIV SCREENING [facility] Start: 11-29-1971 HIV screening HIV screen [facility] Start: 1968 COVID-19 Vaccine (1) COVID-19 Vaccine (1) [facility] Start: 1966 3 comp foot exam completed DIABETIC FOOT EXAM [facility] Start: 1966 Diabetic foot examination Diabetic foot exam [facility] Start: 1966 Diabetic retinal exam Diabetic retinal exam [facility] Start: 1966 Glaucoma screening Dilated Retinal Exam [facility] Start: 1966 Hemoglobin A1c measurement A1C test (Diabetic or Prediabetic) [facility] Start: 1966 Hepatitis B screening URINE ALBUMIN:CREATININE RATIO [facility] Start: 1966 Hepatitis C antibody, confirmatory test DILATED RETINAL EXAM [facility] Start: 1966 Lipid panel Lipid screen [facility] Start: 1962 Pneumococcal 0-64 years Vaccine (1 of 2 - PPSV23) Pneumococcal 0-64 years Vaccine (1 of 2 - PPSV23) [facility] Start: 1961 COVID-19 VACCINE (#1) COVID-19 VACCINE (#1) [facility] Start: 05-31-1957 COVID-19 VACCINE (#1) COVID-19 VACCINE (#1) [facility] Start: 1956 Hepatitis C screening Hepatitis C screen [facility] Alanine aminotransfe rase [Enzymatic activity/volume] in Serum or Plasma [facility] Albumin [Mass/volume ] in Serum or Plasma [facility] Alkaline phosphatase [Enzymatic activity/volume] in Serum or Plasma [facility] Ankle brachial pressure index [facility] Work Phone: Ankle brachial pressure index [facility] Ankle brachial pressure index [facility] Aspartate aminotrans ferase [Enzymatic activity/volume] in Serum or Plasma [facility] Bacteria identified in Urine by Culture BACTERIAL CULTURE, URINE Microbiology Routine Foamy urine 01/03/2025 2:25 PM EDT [facility] Work Phone: Basic metabolic 2000 panel - Serum or Plasma Basic Metabolic Panel Lab Routine Daily until discontinued starting 06/15/2021 [employer] Work Phone: Comment on above: Daily until discontinued starting 2020 Bilirubin measurement, urine [facility] Work Phone: Bilirubin, total measurement [facility] Bilirubin.direct [Ma ss/volume] in Serum or Plasma [facility] End: 06-16-2021 C-reactive protein C-Reactive Protein Lab Routine Daily for 3 Occurrences starting 06/14/2021 until 06/16/2021, 1 completed [employer] Work Phone: Comment on above: Daily for 3 Occurrences starting 021 until 06/16/2021, 1 completed End: 06-17-2021 C-reactive protein C-Reactive Protein Lab Routine Daily for 3 Occurrences starting 06/16/2021 until 06/17/2021, 2 completed [employer] Work Phone: Comment on above: Daily for 3 Occurrences starting 021 until 06/17/2021, 2 completed CBC W Auto Different ial panel - Blood CBC Auto Differential Lab Routine Daily until discontinued starting 06/15/2021 [employer] Work Phone: Comment on above: Daily until discontinued starting 2020 COVID & INFLUENZA A/ B & RSV PCR, ROUTINE COVID & INFLUENZA A/B & RSV PCR, ROUTINE Microbiology Routine Viral illness 06/17/2024 3:22 PM EDT [facility] Work Phone: End: 02-03-2025 CT Abdomen and Pelvis W contrast IV CT ABD/PEL W IVCON Radiology Routine Infection in abdomen (HCC) 1 Occurrences starting 01/05/2024 until 02/03/2025 [facility] Work Phone: Comment on above: 1 Occurrences starting 01/05/2024 until 02/03/2025 End: 04-13-2025 CT Abdomen and Pelvis WO contrast CT ABD/PEL WO IVCON Radiology STAT Generalized abdominal pain 1 Occurrences starting 03/14/2024 until 04/13/2025 [facility] Comment on above: 1 Occurrences starting 03/14/2024 until 04/13/2025 CT Abdomen WO contrast CT ABDOME N WO IVCON Radiology Routine Infection in abdomen (HCC) 01/20/2024 1:04 PM EDT [facility] Work Phone: End: 02-16-2025 CT Abdomen WO contrast CT ABDOMEN WO IVCON Radiology Routine Infection in abdomen (HCC) 1 Occurrences starting 01/19/2024 until 02/16/2025 [facility] Work Phone: Comment on above: 1 Occurrences starting 01/19/2024 until 02/16/2025 End: 05-27-2024 Ct thorax w/o contrast material CT CHEST WO IVCON Radiology Routine Encounter for screening for lung cancer Chronic cough Chronic bronchitis, unspecified chronic bronchitis type (HCC) Smoker 1 Occurrences starting 04/28/2023 until 05/27/2024 [facility] Work Phone: Comment on above: 1 Occurrences starting 04/28/2023 until 05/27/2024 End: 06-14-2021 Culture, Respiratory, Sputum Culture, Respiratory, Sputum Microbiology Routine One Time for 1 Occurrences starting 06/14/2021 until 06/14/2021 [employer] Work Phone: Comment on above: One Time for 1 Occurrences starting 04/2021 until 06/14/2021 End: 06-16-2021 Culture, Respiratory, Sputum Culture, Respiratory, Sputum Microbiology Routine One Time for 1 Occurrences starting 06/16/2021 until 06/16/2021 [employer] Work Phone: Comment on above: One Time for 1 Occurrences starting 06/07 until 06/16/2021 End: 06-17-2021 D-Dimer, Quantitative D-Dimer, Quantitative Lab Routine Daily for 3 Occurrences starting 06/16/2021 until 06/17/2021, 2 completed [email or web address] Work Phone: Comment on above: Daily for 3 Occurrences starting 021 until 06/17/2021, 2 completed End: 08-19-2025 DBT Breast - bilateral screening YANG SCREENING W GANESH Radiology Routine Encounter for screening mammogram for breast cancer 1 Occurrences starting 07/20/2024 until 08/19/2025 [facility] Work Phone: Comment on above: 1 Occurrences starting 07/20/2024 until 08/19/2025 End: 04-27-2026 DBT Breast - bilateral screening YANG SCREENING W GANESH Radiology Routine Encounter for screening mammogram for breast cancer 1 Occurrences starting 03/28/2025 until 04/27/2026 [facility] Work Phone: Comment on above: 1 Occurrences starting 03/28/2025 until 04/27/2026 End: 06-24-2025 EGD DIAGNOSTIC EGD DIAGNOSTIC Endoscopy Routine Hiatal hernia 1 Occurrences starting 06/24/2024 until 06/24/2025 [facility] Comment on above: 1 Occurrences starting 06/24/2024 until 06/24/2025 End: 02-09-2026 EGD DIAGNOSTIC EGD DIAGNOSTIC Endoscopy Routine Paraesophageal hernia 1 Occurrences starting 02/09/2025 until 02/09/2026 [facility] Work Phone: Comment on above: 1 Occurrences starting 02/09/2025 until 02/09/2026 EKG 12 Lead EKG 12 Lead ECG Routine 06/14/2021 10:29 AM EDT [employer] Work Phone: Electrocardiographic procedure [facility] Work Phone: Electrocardiographic procedure [facility] Hematocrit [Volume F raction] of Blood [facility] Hemoglobin [Mass/vol ume] in Blood [facility] Hemoglobin [Presence] in Urine [facility] Work Phone: End: 06-18-2021 Home O2 eval (desaturation screen) Home O2 eval (desaturation screen) Respiratory Care Routine One Time for 1 Occurrences starting 06/18/2021 until 06/18/2021 [employer] Work Phone: Comment on above: One Time for 1 Occurrences starting 06/07 until 06/18/2021 Lactic acid measurement [facility] End: 06-15-2021 Lactic Acid, Plasma Lactic Acid, Plasma Lab Routine Tomorrow AM for 1 Occurrences starting 06/15/2021 until 06/15/2021 [employer] Work Phone: Comment on above: Tomorrow AM for 1 Occurrences starting 1 until 06/15/2021 End: 06-14-2021 Legionella antigen, urine Legionella antigen, urine Microbiology Add-On One Time for 1 Occurrences starting 06/14/2021 until 06/14/2021 [employer] Work Phone: Comment on above: One Time for 1 Occurrences starting 04/2021 until 06/14/2021 End: 06-16-2021 Legionella antigen, urine Legionella antigen, urine Microbiology Routine One Time for 1 Occurrences starting 06/16/2021 until 06/16/2021 [employer] Work Phone: Comment on above: One Time for 1 Occurrences starting 06/07 until 06/16/2021 Leukocytes [#/volume] in Blood [facility] Lipid 1996 panel - S yaya or Plasma [facility] End: 10-29-2025 LUNG DIFFUSION CAPACITY (DLCO) LUNG DIFFUSION CAPACITY (DLCO) PFT Routine Chronic obstructive pulmonary disease, unspecified COPD type (HCC) 1 Occurrences starting 09/30/2024 until 10/29/2025 [facility] Work Phone: Comment on above: 1 Occurrences starting 09/30/2024 until 10/29/2025 Magnesium [Mass/volu me] in Serum or Plasma [facility] End: 09-10-2024 YANG SCREENING YANG SCREENING Radiology Routine Encounter for screening mammogram for breast cancer 1 Occurrences starting 08/12/2023 until 09/10/2024 [facility] Work Phone: Comment on above: 1 Occurrences starting 08/12/2023 until 09/10/2024 End: 06-24-2025 Manometry Study observation Narrative MANOMETRY ESOPHAGEAL Endoscopy Routine Hiatal hernia 1 Occurrences starting 06/24/2024 until 06/24/2025 [facility] [employer] Work Phone: Comment on above: 1 Occurrences starting 06/24/2024 until 06/24/2025 End: 02-09-2026 Manometry Study observation Narrative MANOMETRY ESOPHAGEAL Endoscopy Routine Paraesophageal hernia Esophageal dysphagia 1 Occurrences starting 02/09/2025 until 02/09/2026 [facility] Comment on above: 1 Occurrences starting 02/09/2025 until 02/09/2026 Mean corpuscular hem oglobin concentration determination [facility] Mean corpuscular hem oglobin determination [facility] Measurement of keton es in urine using dipstick [facility] Work Phone: Measurement of respi ratory function [facility] End: 06-14-2021 Microscopic observation [Identifier] in Unspecified specimen by Gram stain Gram Stain Microbiology STAT Once for 1 Occurrences starting 06/14/2021 until 06/14/2021 [email or web address] Work Phone: Comment on above: Once for 1 Occurrences starting 06/14/20 until 06/14/2021 End: 06-16-2021 Microscopic observation [Identifier] in Unspecified specimen by Gram stain Gram Stain Microbiology Routine Once for 1 Occurrences starting 06/16/2021 until 06/16/2021 [email or web address] Work Phone: Comment on above: Once for 1 Occurrences starting 06/16/20 until 06/16/2021 Microscopic urinalysis [facility] Work Phone: Neutrophil count [facility] Neutrophil percent differential count [facility] NM Heart Views W str ess and W radionuclide IV [facility] Organism count, micr oscopic method [facility] Work Phone: End: 06-15-2021 Oxygen nasal cannula oxygen Oxygen nasal cannula oxygen Respiratory Care STAT Continuous until discontinued starting 06/15/2021 [facility] Work Phone: Comment on above: Continuous until discontinued starting 1 Oxygen therapy [[facility] Data Set] [facility] Work Phone: Comment on above: Daily until discontinued starting 2020 Daily until disconti nued starting 06/16/2021 Patient Education [facility] Work Phone: Patient referral [facility] Work Phone: pH of Urine [facility] Work Phone: Platelets [#/volume] in Blood [facility] End: 06-16-2021 Procalcitonin Procalcitonin Lab Routine Q48H for 2 Occurrences starting 06/14/2021 until 06/16/2021, 1 completed [facility] Work Phone: Comment on above: Q48H for 2 Occurrences starting 06/14/20 21 until 06/16/2021, 1 completed Red blood cell count [facility] Red cell distributio n width determination [facility] Specific gravity of Urine [facility] Work Phone: End: 10-29-2025 SPIROMETRY WITH DILATOR IF OBSTRUCTED SPIROMETRY WITH DILATOR IF OBSTRUCTED PFT Routine Chronic obstructive pulmonary disease, unspecified COPD type (HCC) 1 Occurrences starting 09/30/2024 until 10/29/2025 [facility] Comment on above: 1 Occurrences starting 09/30/2024 until 10/29/2025 STREP A MOLECULAR (POC) STREP A MOLECULAR (POC) Microbiology Routine Sore throat Ordered: 08/26/2024 [facility] Work Phone: Comment on above: Ordered: 08/26/2024 End: 06-14-2021 Strep Pneumoniae Antigen Strep Pneumoniae Antigen Microbiology Add-On One Time for 1 Occurrences starting 06/14/2021 until 06/14/2021 [facility] Work Phone: Comment on above: One Time for 1 Occurrences starting 04/2021 until 06/14/2021 End: 06-16-2021 Strep Pneumoniae Antigen Strep Pneumoniae Antigen Microbiology Routine One Time for 1 Occurrences starting 06/16/2021 until 06/16/2021 [facility] Work Phone: Comment on above: One Time for 1 Occurrences starting 06/07 until 06/16/2021 Streptococcus pyogen es antigen assay Group A Streptococcus Rapid Screen [facility] Work Phone: Total protein measurement [facility] End: 06-15-2021 Troponin I.cardiac [Mass/volume] in Serum or Plasma Troponin Lab Routine Tomorrow AM for 1 Occurrences starting 06/15/2021 until 06/15/2021 [facility] Work Phone: Comment on above: Tomorrow AM for 1 Occurrences starting 1 until 06/15/2021 UA DIP B/O UA DIP B/O Lab Routine Hematuria, unspecified type Ordered: 09/23/2022 [facility] Work Phone: Comment on above: Ordered: 09/23/2022 Urinalysis, blood, qualitative [facility] Work Phone: Urine dipstick for glucose [facility] Work Phone: Urine dipstick for l eukocyte esterase [facility] Work Phone: Urine dipstick for nitrite [facility] Work Phone: Urine dipstick for protein [facility] Work Phone: Urine examination [facility] Work Phone: Urine microscopy: ep ithelial cells [facility] Work Phone: Urine Microscopy: white cells [facility] Work Phone: Urine test [facility] Urobilinogen [Presen ce] in Urine [facility] Work Phone: End: 09-23-2023 US CAROTID ARTERIES [facility] US CAROTID ARTERIES [facility] Vascular Lab Routine Abdominal aneurysm Bruit of left carotid artery Dizziness 1 Occurrences starting 09/23/2022 until 09/23/2023 [facility] Work Phone: Comment on above: 1 Occurrences starting 09/23/2022 until 09/23/2023 [facility] [place] [facility] [place]: 10-23-2023 Us retroperitoneal real time w/image limited US ABD AORTA Radiology Routine Lower abdominal pain Abdominal aneurysm Dizziness 1 Occurrences starting 09/23/2022 until 10/23/2023 [facility] Work Phone: Comment on above: 1 Occurrences starting 09/23/2022 until 10/23/2023 White blood cell count [facility] Work Phone: End: 06-15-2021 XR CHEST (2 VW) XR CHEST (2 VW) Imaging Routine Once for 1 Occurrences starting 06/15/2021 until 06/15/2021 [facility] Work Phone: Comment on above: Once for 1 Occurrences starting 06/15/20 21 until 06/15/2021 [facility] Immunizations Immunization Date Immunization Notes Care Provider Antonella [facility] 12-30-2023 pneumococcal conjuga te (PCV20) vaccine, 20 valent (PREVNAR 20) Ryanne Negro APRN.CNP Work Phone: [facility] 06-29-2023 influenza (HD-IIV4) vaccine, age 65+ yr, high dose, quadrivalent, PF (FLUZONE HIGH-DOSE) Nora Crespo APRN.CNP Work Phone: [facility] 06-29-2023 influenza virus vacc ine, unspecified formulation oNra Crespo APRN.CNP Work Phone: [facility] 07-22-2018 influenza, injectabl e, quadrivalent, preservative free Dr. 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.[facility] Work Phone: [facility] 06-24-2017 pneumococcal conjuga te vaccine, 13 valent 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.[employer] Work Phone: [facility] 06-07-2014 Influenza virus vaccine No P [facility] Physician [facility] 06-07-2014 influenza, injectabl e, quadrivalent, preservative free Nora Mahendra 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.[facility] Work Phone: [facility] Work Phone: 06-07-2014 influenza, seasonal, injectable, preservative free Nora Mahendra 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.[facility] Work Phone: [facility] Work Phone: 06-05-2014 influenza, seasonal, injectable 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.[facility] Work Phone: [facility] Work Phone: 06-05-2014 pneumococcal polysaccharide vaccine, 23 valent 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 2022 Private Health Insurance [id number] 2022 Medicare [id number] 2022 Medicaid [id number] 2015 Medicare [id number] 2015 Unknown [id number]. [id number] 1956 Unknown [id number] 2.840.1.864896.3.579.2. 627 1956 Unknown [id number]. 627 1956 Unknown [id number] .[id number]. 627 Private Health Insurance [facility] [id number] Unknown [id number]. 462 Unknown [id number] 2.16840.1.453407.3.579.2. 462 Unknown [id number] 2.16840.1.720150.3.579.2. 462 Unknown [id number] 2.16.840.1.760729.3.579.2. 462 Unknown [id number] 2.16.840.1.583393.3.579.2. 462 Unknown [id number] 2.16.840.1.852125.3.579.2. 462 Unknown [id number] 2.16.840.1.810255.3.579.2. 462 Unknown [id number] 2.16.840.1.730729.3.579.2. 462 Unknown [id number] 2.16.840.1.109985.3.579.2. 462 Unknown [id number] 2.16.840.1.997815.3.579.2. 462 Unknown [id number] 2.16.840.1.852233.3.579.2. 462 Unknown [id number] 2.16.840.1.460360.3.579.2. 462 Unknown [id number] 2.16.840.1.657395.3.579.2. 462 Unknown [id number] 2.16.840.1.461302.3.579.2. 462 Unknown [id number]. 462 Social History Date Type Detail Facility Start: 09-21-1983 End: 02-09-2025 Tobacco smoking status NHIS Current every day smoker [facility] Work Phone: Start: 09-21-1983 End: 09-21-2023 History of tobacco use Cigarette Smoker [facility] Start: 06-14-2021 End: 01-03-2025 Cigarettes smoked current (pack per day) - Reported [facility] Start: 06-14-2021 End: 06-16-2021 Tobacco use and exposure Current user [facility] Start: 06-14-2021 End: 06-16-2021 Alcohol intake Ex-drinker (finding) [facility] Work Phone: Start: 1955 Sex Assigned At Not on file [employer] Work Phone: Exposure to SARS-CoV -2 (event) Yes [facility] Start: 01-04-2022 End: 01-20-2022 Exposure to SARS-CoV-2 (event) Not sure [facility] Start: 11-25-2021 End: 12-29-2023 Tobacco smoking status MSIS Unknown if ever smoked [facility] Start: 06-03-2020 None [facility] Start: 07-05-2020 - [facility] Start: 06-03-2020 With Family [facility] Start: 07-06-2020 Cigarettes [facility] Start: 1955 Sex Assigned At Female W [facility] Start: 01-14-2022 End: 05-22-2025 Alcohol intake Current non-drinker of alcohol (finding) [facility] Start: 09-22-2019 End: 08-28-2022 Tobacco Comment 7 cigarette [facility] Start: 09-22-2019 End: 02-09-2025 Tobacco use and exposure Smokeless tobacco non-user [facility] Work Phone: Start: 09-23-2022 End: 01-10-2025 Tobacco smoking status [facility] Occasional tobacco smoker [facility] Work Phone: Start: 04-15-2023 End: 01-03-2025 Tobacco use panel [facility] Start: 08-08-2012 PHQ2 Score 0 [facility] Start: 11-25-2023 End: 05-30-2024 Tobacco smoking status MSIS Ex-smoker [facility] Work Phone: Start: 09-21-1983 End: 09-21-2023 History of tobacco use Current smoker [facility] Work Phone: Start: 11-25-2023 Tobacco Comment 7 cigarette. Q uit in Middle of September 2023. [facility] Has the [employer], [employer], [employer], or [employer] threatened to shut off services in your home in past 12Mo No [facility] (I/We) worried wheth er (my/our) food would run out before (I/we) got money to buy more. Never true [facility] Tobacco smoking status [facility] Start: 04-07-2019 Tobacco smoking status Light t obacco smoker (finding) [facility] Are you now , , , , never or living with a partner? [facility] How often to you hav e a drink containing alcohol? Never [facility] Do you feel stress - tense, restless, nervous, or anxious, or unable to sleep at night because your mind is troubled all the time - these days [OSQ] Very much [facility] Start: 12-20-2024 End: 01-10-2025 Sex Female (finding) [facility] Start: 02-09-2025 Tobacco Comment 7 cigarette. Q uit in Middle of September 2023. Restarted February 2024 [facility] Medical Equipment Procedure Code Equipment Code Equipment Origin al Text Equipment Identifier Dates ERCP (endoscopic retrograde cholangiopancreatog anish) RX STENT/10 X 5CM FDA Start: 07-28-2023 ERCP (endoscopic retrograde cholangiopancreatog anish) FDA Start: 07-28-2023 ERCP (endoscopic retrograde cholangiopancreatog anish) FDA Start: 07-28-2023 ERCP (endoscopic retrograde cholangiopancreatog anish) FDA Start: 07-28-2023 ERCP (endoscopic retrograde cholangiopancreatog anish) RX STENT/10 X 5CM FDA Start: 07-28-2023 ERCP (endoscopic retrograde cholangiopancreatog anish) RX STENT/10 X 5CM FDA Start: 07-28-2023 ERCP (endoscopic retrograde cholangiopancreatog anish) RX STENT/10 X 5CM FDA Start: 07-28-2023 ERCP (endoscopic retrograde cholangiopancreatog anish) RX STENT/10 X 5CM FDA Start: 07-28-2023 ERCP (endoscopic retrograde cholangiopancreatog anish) RX STENT/10 X 5CM FDA Start: 07-28-2023 ERCP (endoscopic retrograde cholangiopancreatog anish) RX STENT/10 X 5CM FDA Start: 07-28-2023 ERCP (endoscopic retrograde cholangiopancreatog anish) FDA Start: 07-28-2023 [id number] FDA Start: 08-11-2022 Goals Date Patient Goal Desired Activity /State Functional Status Date Assessment Result Facility 09-29-2024 Functional status Amb[facility] Work Phone: 12-28-2023 Are you deaf, or do you have serious difficulty hearing No 12/28/2023 2:58 PM Layla Emmanuel, RN No [facility] 12-28-2023 Are you blind, or do you have serious difficulty seeing, even when wearing glasses No 12/28/2023 2:58 PM Layla Emmanuel, WENDY No [facility] 12-28-2023 Do you have serious difficulty walking or climbing stairs No 12/28/2023 2:58 PM Layla Emmanuel, WENDY No [facility] 12-28-2023 Do you have difficul ty dressing or bathing No 12/28/2023 2:58 PM Layla Emmanuel, WENDY No [facility] 12-28-2023 Because of a physica l, mental, or emotional condition, do you have difficulty doing errands alone such as visiting a physician's office or shopping Yes 12/28/2023 2:58 PM Layla Emmanuel, WENDY Yes [facility] 12-20-2023 Functional Status Environmental Safety Implemented Adequate room lighting, Bed in low position, Call device within reach, Non-Slip footwear, Patient specific safety measures, Traffic path in room free of clutter, Wheels locked [facility] 12-19-2023 Functional Status Standard Safet y ID band on, Call device within reach, Bed in low position, Wheels locked, Upper/Half-Length side-rails up, Bedside Cart Locked, Safety level maintained [facility] 01-04-2023 Functional status [facility] Work Phone: 01-20-2022 Functional status [facility] Work Phone: 09-02-2021 Functional status Bathroom Privilege [facility] Work Phone: Mental Status Date Assessment Result Facility 12-20-2024 Cognitive function Awake;Alert;A ppropriate;Fol lows Commands [facility] Work Phone: 09-30-2024 Cognitive function Voice/Name [facility] Work Phone: 12-28-2023 Because of a physica l, mental, or emotional condition, do you have serious difficulty concentrating, remembering, or making decisions Yes 12/28/2023 2:58 PM Layla Emmanuel, WENDY Yes [facility] 12-19-2023 Mental Status Orientation Not oriented to time, Follows simple commands [facility] 09-29-2023 Cognitive function Voice/Name [facility] Work Phone: 09-28-2023 Cognitive function Voice/Name [facility] Work Phone: 07-28-2023 Cognitive function Voice/Name [facility] Work Phone: 07-19-2023 Cognitive function Voice/Name [facility] Work Phone: 06-24-2023 Cognitive function Voice/Name [facility] Work Phone: 06-23-2023 Cognitive function Awake;Alert;Appropriat e [facility] Work Phone: 01-16-2023 Cognitive function Level Of Cons ciousness Awake;Alert;Appropriate;Fol lows Commands [facility] Work Phone: 01-12-2023 Cognitive function Level Of Cons ciousness Awake;Alert;Appropriate;Fol lows Commands [facility] Work Phone: 01-10-2023 Cognitive function Voice/Name [facility] Work Phone: 01-04-2023 Cognitive function Voice/Name [facility] Work Phone: 09-30-2022 Cognitive function Awake;Alert;A ppropriate;Fol lows Commands [facility] Work Phone: 08-23-2022 Cognitive function Awake;Alert;A ppropriate;Fol lows Commands [facility] Work Phone: 06-29-2022 Cognitive function Voice/Name [facility] Work Phone: 06-09-2022 Cognitive function Awake;Alert;Appropriat e [facility] Work Phone: 06-04-2022 Cognitive function Awake;Alert;A ppropriate;Fol lows Commands [facility] Work Phone: 02-26-2022 Cognitive function Level Of Cons ciousness Awake;Alert;Appropriate [facility] Work Phone: 01-20-2022 Cognitive function Voice/Name [facility] Work Phone: 01-01-2022 Cognitive function Voice/Name [facility] Work Phone: 11-17-2021 Cognitive function Level Of Cons ciousness Awake;Alert;Appropriate;Fol lows Commands [facility] Work Phone: 09-02-2021 Cognitive function Voice/Name [facility] Work Phone: Clinical Notes 04-16-2016 to 05-23-2025 Telephone Encounter - Eduarda Rosario LPN - 05/23/2025 8:27 AM EDTTelephone Encounter - Eduarda Rosario LPN - 05/23/2025 8:27 AM EDGeronimo-Rajiv Trimble APRN.[employer] - 05/22/2025 11:41 AM EDT Note Date & Type Note Facility 05-23-2025 Telephone encounter Note Patient notified.Eduarda Rosario LPN [facility] 05-23-2025 Telephone encounter Note ----- Message from Ryanne Negro APRN.DONNA sent at 05/23/2025 8:17 AM EDT ----- ----- Message ----- From: Lab, Background User Sent: 05/22/2025 11:36 PM EDT To: [facility] 05-23-2025 Miscellaneous Notes Patient notified.Eduarda Rosario LPN ----- Message from Ryanne Negro APRN.CNP sent at 05/23/2025 8:17 AM EDT ----- ----- Message ----- From: Cornelius Minaya User Sent: 05/22/2025 11:36 PM EDT To: [facility] Provider Pool Please call patient let her know she is negative for flu, COVID, RSV. Patient should continue supportive therapy and follow-up in 2 weeks if symptoms are not improving. documented in this encounter [facility] 05-23-2025 Telephone encounter Note Please call patient let her know she is negative for flu, COVID, RSV. Patient should continue supportive therapy and follow-up in 2 weeks if symptoms are not improving. [facility] Work Phone: 05-22-2025 Note SARS-COV-2 (AGENT OF COVID-19) RNA: Not detected INFLUENZA A RNA: Not detected INFLUENZA B RNA: Not detected RESPIRATORY SYNCYTIAL VIRUS (RSV) RNA: Not detected [facility] Comment on above: Performed By: #### [id number] ####[facility] LABCLIA [id number] [address] [place] 05-22-2025 Note HNO ID: [id number] Author: RAJIV MUNOZ APRN.CNP Service: ? Author Type: Nurse Practitioner Type: Progress Notes Filed: 05/22/2025 11:43 Note Text: [facility] Subjective Marcia Mascorro is a 69 year old female. Patient presents with: Cough: Chest congestion x 2 days Cough The patient is a 69-year-old female presenting with cough, chest congestion, and dyspnea. Cough and Chest Congestion: - Onset 2 days ago. - Associated with chills and myalgias. - Productive cough with sputum production. - Denies rhinorrhea or nasal congestion. - Denies sore throat. - Denies chest pain. Dyspnea: - Intermittent episodes of dyspnea. Peripheral Neuropathy: - Reports neuropathy. Review of Systems Respiratory: Positive for cough. Constitutional: (+) chills, (-) fever Ears/Nose/Mouth/Throat: (+) sore throat, (-) rhinorrhea, (-) nasal congestion Cardiovascular: (+) peripheral edema, (-) chest pain Respiratory: (+) cough, (+) chest congestion, (+) dyspnea, (+) sputum production Musculoskeletal: (+) myalgias Objective BP 138/90 Pulse 78 Temp 37.4 ?C (99.4 ?F) Resp 20 Wt 78.9 kg (173 lb 15.1 oz) SpO2 93% BMI 30.06 kg/m? PAST MEDICAL HISTORY Diagnosis Date - Abdominal aortic aneurysm - JOVANY (acute kidney injury) - Anaphylactic reaction due to contrast - Anxiety - Retana's esophagus with high grade dysplasia 06/24/2023 biopsy interpretation: prominent low-grade dysphasia AND focal superficial high-grad dysplasia - Retana's esophagus without dysplasia 09/13/2019 - Bile leak, postoperative - CAD (coronary artery disease) - CHF (congestive heart failure) ([facility]) - Chronic back pain - Chronic pain low back, sees pain MGT: Dr. Nayak - Compression fracture of thoracic vertebra ([facility]) - COPD (chronic obstructive pulmonary disease) ([facility]) - Depression - Diabetes mellitus ([facility]) - Diverticulosis - Essential hypertension, benign Sees Dr. Best - GERD (gastroesophageal reflux disease) - Hiatal hernia 06/24/2023 - Hyperthyroidism - Incontinence 07/07/2014 - LV (left ventricular) mural thrombus 12/01/2023 - Mixed hyperlipidemia - Obesity - Opioid dependence (HCC) 01/15/2020 In 180 as of 01/2020 per ER report from [facility]. - Palpitation - Primary cardiomyopathy (HCC) - Pulmonary emphysema (HCC) - Schatzki's ring 06/24/2023 - SVT (supraventricular tachycardia) ([facility]) - Tremor PAST SURGICAL HISTORY Procedure Laterality Date - 2D ECHO (EXEP) 01/19/2017 EF=55%, mild LVH, LA enlargement, TX and TI, Diastolic dysfunction. - 2D ECHO (EXEP) 12/18/2017 EF=55%, mild LVH, mild diastolic dysfunct, - COLONOSCOPY SCREENING 04/16/2016 mac. repeat 10 yrs - [facility]IC[facility] INJ 04/16/2016 v - EGD WITH BIOPSY(S) 07/28/2023 dilation of pylorus; Dr. Martinez - ERCP DUCT STENT PLACEMENT 07/28/2023 Dr. Martinez - F EGD WITH DILATATION 06/24/2023 Retana's-prominent low-grade dysphasia AND focal superficial high-grad dysplasia; hiatal hernia; Dr. Martinez - LAPAROSCOPIC CHOLECYSTECTOMY 12/09/2023 Dr. Tejada--RUQ abcess post op - TOTAL ABDOMINAL HYSTERECT W/WO RMVL TUBE OVARY ALLERGIES Contrast Dye [Iodine] MEDICATIONS - HYDROcodone-acetaminophen (NORCO) 5-325 mg per tablet Take 1 tablet by mouth every 8 hours as needed for pain. - mirtazapine (REMERON) 15 mg tablet Take 1 tablet by mouth daily at bedtime. - potassium chloride 20 mEq/15 mL solution Take 15 mL by mouth once daily. Take this while taking furosemide. - oxyCODONE myristate 18 mg CSpT Take 1 capsule by mouth two times a day. (Dr. Forrest) - albuterol-budesonide HFA (AIRSUPRA) 90-80 mcg/actuation inhaler Inhale 2 puffs as instructed every 2 hours as needed for wheezing/shortness of breath. Do not take more than 12 inhalations in a 24 hour period. - atorvastatin (LIPITOR) 40 mg tablet Take 1 tablet by mouth daily at bedtime. - clopidogrel (PLAVIX) 75 mg tablet Take 1 tablet by mouth once daily. - DULoxetine DR (CYMBALTA) 60 mg capsule Take 1 capsule by mouth once daily. - gabapentin (NEURONTIN) 400 mg capsule Take 1 capsule by mouth two times a day for 360 days. - lisinopril (ZESTRIL) 5 mg tablet Take 1 tablet by mouth once daily. - omeprazole (PRILOSEC) 40 mg capsule Take 1 capsule by mouth once daily. - promethazine (PHENERGAN) 25 mg tablet Take 1 tablet by mouth every 6 hours as needed for nausea/vomiting. - senna-docusate (SENNA PLUS) 8.6-50 mg per tablet Take 1 tablet by mouth every morning AND 1 tablet daily at bedtime. - spironolactone (ALDACTONE) 25 mg tablet Take 1 tablet by mouth once daily. - sucralfate (CARAFATE) 100 mg/mL suspension Take 10 mL by mouth four times daily. (take prior to meals and at bedtime) - tiotropium bromide (SPIRIVA RESPIMAT) 2.5 mcg/actuation inhaler Inhale 2 puffs as instructed once daily. Inhale two puffs once daily. - Cholecalciferol, Vitamin D3, 125 mcg (5,000 unit) cap Take 1 capsule by mouth once daily (more content not included)... [facility] 05-22-2025 History of Presen t illness Narrative [facility] Subjective Marcia Mascorro is a 69 year old female. Patient presents with: Cough: Chest congestion x 2 days Cough The patient is a 69-year-old female presenting with cough, chest congestion, and dyspnea. Cough and Chest Congestion: - Onset 2 days ago. - Associated with chills and myalgias. - Productive cough with sputum production. - Denies rhinorrhea or nasal congestion. - Denies sore throat. - Denies chest pain. Dyspnea: - Intermittent episodes of dyspnea. Peripheral Neuropathy: - Reports neuropathy. Review of Systems Respiratory: Positive for cough. Constitutional: (+) chills, (-) fever Ears/Nose/Mouth/Throat: (+) sore throat, (-) rhinorrhea, (-) nasal congestion Cardiovascular: (+) peripheral edema, (-) chest pain Respiratory: (+) cough, (+) chest congestion, (+) dyspnea, (+) sputum production Musculoskeletal: (+) myalgias Objective BP 138/90 Pulse 78 Temp 37.4 C (99.4 F) Resp 20 Wt 78.9 kg (173 lb 15.1 oz) SpO2 93% BMI 30.06 kg/m PAST MEDICAL HISTORY Diagnosis Date Abdominal aortic aneurysm JOVANY (acute kidney injury) Anaphylactic reaction due to contrast Anxiety Retana's esophagus with high grade dysplasia 06/24/2023 biopsy interpretation: prominent low-grade dysphasia & focal superficial high-grad dysplasia Retana's esophagus without dysplasia 09/13/2019 Bile leak, postoperative CAD (coronary artery disease) CHF (congestive heart failure) (HCC) Chronic back pain Chronic pain low back, sees pain MGT: Dr. Nayak Compression fracture of thoracic vertebra (HCC) COPD (chronic obstructive pulmonary disease) (HCC) Depression Diabetes mellitus (HCC) Diverticulosis Essential hypertension, benign Sees Dr. Best GERD (gastroesophageal reflux disease) Hiatal hernia 06/24/2023 Hyperthyroidism Incontinence 07/07/2014 LV (left ventricular) mural thrombus 12/01/2023 Mixed hyperlipidemia Obesity Opioid dependence (HCC) 01/15/2020 In 180 as of 01/2020 per ER report from [facility]. Palpitation Primary cardiomyopathy (HCC) Pulmonary emphysema (HCC) Schatzki's ring 06/24/2023 SVT (supraventricular tachycardia) (HCC) Tremor PAST SURGICAL HISTORY Procedure Laterality Date 2D ECHO (EXEP) 01/19/2017 EF=55%, mild LVH, LA enlargement, TX and TI, Diastolic dysfunction. 2D ECHO (EXEP) 12/18/2017 EF=55%, mild LVH, mild diastolic dysfunct, COLONOSCOPY SCREENING 04/16/2016 mac. repeat 10 yrs EGD W/O [facility] SPEC VARICIES INJ 04/16/2016 v EGD WITH BIOPSY(S) 07/28/2023 dilation of pylorus; Dr. Martinez ERCP DUCT STENT PLACEMENT 07/28/2023 Dr. Martinez F EGD WITH DILATATION 06/24/2023 Retana's-prominent low-grade dysphasia & focal superficial high-grad dysplasia; hiatal hernia; Dr. Martinez LAPAROSCOPIC CHOLECYSTECTOMY 12/09/2023 Dr. Tejada--RUQ abcess post op TOTAL ABDOMINAL HYSTERECT W/WO RMVL TUBE OVARY ALLERGIES Contrast Dye [Iodine] MEDICATIONS HYDROcodone-acetaminophen (NORCO) 5-325 mg per tablet Take 1 tablet by mouth every 8 hours as needed for pain. mirtazapine (REMERON) 15 mg tablet Take 1 tablet by mouth daily at bedtime. potassium chloride 20 mEq/15 mL solution Take 15 mL by mouth once daily. Take this while taking furosemide. oxyCODONE myristate 18 mg CSpT Take 1 capsule by mouth two times a day. (Dr. Forrest) albuterol-budesonide HFA (AIRSUPRA) 90-80 mcg/actuation inhaler Inhale 2 puffs as instructed every 2 hours as needed for wheezing/shortness of breath. Do not take more than 12 inhalations in a 24 hour period. atorvastatin (LIPITOR) 40 mg tablet Take 1 tablet by mouth daily at bedtime. clopidogrel (PLAVIX) 75 mg tablet Take 1 tablet by mouth once daily. DULoxetine DR (CYMBALTA) 60 mg capsule Take 1 capsule by mouth once daily. gabapentin (NEURONTIN) 400 mg capsule Take 1 capsule by mouth two times a day for 360 days. lisinopril (ZESTRIL) 5 mg tablet Take 1 tablet by mouth once daily. omeprazole (PRILOSEC) 40 mg capsule Take 1 capsule by mouth once daily. promethazine (PHENERGAN) 25 mg tablet Take 1 tablet by mouth every 6 hours as needed for nausea/vomiting. senna-docusate (SENNA PLUS) 8.6-50 mg per tablet Take 1 tablet by mouth every morning AND 1 tablet daily at bedtime. spironolactone (ALDACTONE) 25 mg tablet Take 1 tablet by mouth once daily. sucralfate (CARAFATE) 100 mg/mL suspension Take 10 mL by mouth four times daily. (take prior to meals and at bedtime) tiotropium bromide (SPIRIVA RESPIMAT) 2.5 mcg/actuation inhaler Inhale 2 puffs as instructed once daily. Inhale two puffs once daily. Cholecalciferol, Vitamin D3, 125 mcg (5,000 unit) cap Take 1 capsule by mouth once daily. magnesium hydroxide (MILK OF MAGNESIA) 400 mg/5 mL suspension Take 30 mL by mouth once daily as needed for constipation. LORazepam (ATIVAN) 1 mg tablet Take 1 tablet by mouth three times a day as needed for anxiety for up to 90 days. carvedilol (COREG) 25 mg tablet Take 1 tablet by mouth two times a day with meals. furosemide (LASIX) 40 mg tablet Take 1 tablet by mouth once daily. Nutritional Supplements (OPTIMENTAL) liqd Take 237 mL by mouth once daily. Okay with what insurance covers Diaper,Brief, Adult,Disposable (DEPEND EASY FIT UNDERGARMENTS) Size Large pull up. Change depends once every 1-2 hrs. Dx incontinence (788.30) Prolapsed bladder (618.01) acetaminophen (TYLENOL) 325 mg tablet Take 650 mg by mouth every 4 hours as needed. amoxicillin-clavulanate potassium (AUGMENTIN) 875-125 mg per tablet Take 1 tablet by mouth two times a day for 7 days. predniSONE (DELTASONE) 20 mg tablet Take 2 tablets by mouth once daily. ketoconazole (NIZORAL) 2 % shampoo Apply to affected area three times a week. (Patient not taking: Reported on 05/22/2025) potassium chloride ER (KLOR-CON) 20 mEq tablet Take 20 mEq by mouth once daily. (Patient not taking: Reported on 05/22/2025) FAMILY HISTORY Problem Relation Age of Onset Breast Cancer Sister Heart Mother Diabetes Mother Stroke Mother Hypertension Mother Heart Maternal Grandmother Heart Brother SOCIAL HISTORY[1] Physical Exam Vitals and nursing note reviewed. Constitutional: Appearance: Normal appearance. HENT: Nose: Congestion present. Cardiovascular: Rate and Rhythm: Normal rate and regular rhythm. Heart sounds: Normal heart sounds. Pulmonary: Effort: Pulmonary effort is normal. Breath sounds: Examination of the right-upper field reveals wheezing. Examination of the left-upper field reveals wheezing. Examination of the right-lower field reveals rales. Wheezing and rales present. Neurological: Mental Status: She is alert. { 1. Acute cough (R05.1) 2. Sinobronchitis (J32.9) - Acute onset of cough, chest congestion, chills, body aches, and intermittent dyspnea for 2 days; no significant rhinorrhea or nasal congestion. - COVID test pending. - Start antibiotic and steroid therapy. 3. Pleural effusion, not elsewhere classified (J90) - Chest X-ray shows small right-sided pleural effusion without evidence of pneumonia. - Advised follow-up with primary care provider to re-evaluate effusion. Patient has appointment with PCP tomorrow. - Follow-up with your PCP in 3-5 days if symptoms have not improved or sooner if symptoms worsen - Discussed red flags and need for immediate medical evaluation if any occur. - Discussed supportive care treatment with fluids, rest and analgesia. - Discussed expected course of illness Rajiv Munoz APRN.[employer] and Recording using [employer] software for draft documentation of the visit was discussed with the patient/authorized senior outside sales representative; all questions welcomed and answered. Patient/authorized senior outside sales representative agreed to proceed History and Record Review Clinical information obtained from an independent historian. History obtained from or confirmed by: family member. Management I performed an independent interpretation of the following:imaging Imaging: My interpretation is see chart Disposition The patient was discharged. Procedures [1] Social History Tobacco Use Smoking status: Every Day Current packs/day: 0.00 Average packs/day: 1 pack/day for 40.0 years (40.0 ttl pk-yrs) Types: Cigarettes Start date: 09/21/1983 Last attempt to quit: 09/21/2023 Years since quittin.6 Smokeless tobacco: Never Tobacco comments: 7 cigarette. Quit in Middle of September 2023. Restarted February 2024 Vaping Use Vaping status: Never Used Substance Use Topics Alcohol use: No Drug use: No documented in this encounter [facility] 05-22-2025 Instructions Rajiv Munoz APRN.CNP - 05/22/2025 11:36 AM EDT 1. Acute cough (R05.1) 2. Sinobronchitis (J32.9) - Acute onset of cough, chest congestion, chills, body aches, and intermittent dyspnea for 2 days; no significant rhinorrhea or nasal congestion. - COVID test pending. - Start antibiotic and steroid therapy. 3. Pleural effusion, not elsewhere classified (J90) - Chest X-ray shows small right-sided pleural effusion without evidence of pneumonia. - Advised follow-up with primary care provider to re-evaluate effusion. - Chest x-ray showed no pneumonia but did reveal a small amount of fluid on the right lung without signs of infection. - Begin the prescribed antibiotic and steroid, taking both medications for the next few days as directed. - Your prescriptions have been sent to [facility] ([facility]). A printed copy will be provided for your records. - Schedule a follow-up appointment with your primary care provider to recheck the fluid on your lung. documented in this encounter [facility] 05-22-2025 History of Presen t illness Narrative Radiology Service Progress Note PATIENT NAME: Marcia Mascorro DATE OF SERVICE: May 22, 2025 TIME: 11:06 AM PATIENT IDENTITY VERIFICATION COMPLETED USING TWO (2) IDENTIFIERS: Name and Date of confirmed by patient verbally. FALL SCREENING: Has the patient had 2 falls in the last year or 1 fall with injury or currently using an Ambulatory Assistive Device (Walker, Cane, Wheelchair, Crutches, etc.)? No PATIENT GENDER DATA: Assigned female at . status: : No status: NO. PATIENT RELEVANT IMPLANT DATA REVIEWED: Yes PATIENT PRESENTS WITH AN IMPLANTABLE OR ATTACHED ANCHORMAN: No RADIOLOGY DEPARTMENT: General X-ray: Exam(s) Completed: Chest X-Ray PERIPHERAL IV DATA: Not applicable SIGNED BY: RT Jeanette(Alejandra) May 22, 2025 11:06 AM documented in this encounter [facility] 05-22-2025 Note HNO ID: [id number] Author: XUAN DUFFY RT(R) Service: ? Author Type: Technologist Type: Progress Notes Filed: 05/22/2025 11:18 Note Text: Radiology Service Progress Note PATIENT NAME: Marcia Mascorro DATE OF SERVICE: May 22, 2025 TIME: 11:06 AM PATIENT IDENTITY VERIFICATION COMPLETED USING TWO (2) IDENTIFIERS: Name and Date of confirmed by patient verbally. FALL SCREENING: Has the patient had 2 falls in the last year or 1 fall with injury or currently using an Ambulatory Assistive Device (Walker, Cane, Wheelchair, Crutches, etc.)? No PATIENT GENDER DATA: Assigned female at . status: : No status: NO. PATIENT RELEVANT IMPLANT DATA REVIEWED: Yes PATIENT PRESENTS WITH AN IMPLANTABLE OR ATTACHED ANCHORMAN: No RADIOLOGY DEPARTMENT: General X-ray: Exam(s) Completed: Chest X-Ray PERIPHERAL IV DATA: Not applicable SIGNED BY: RT Jeanette(Alejandra) May 22, 2025 11:06 AM [facility] 05-12-2025 Telephone encounter Note Prescription Refill Information The patient has been identified by name and date of : Yes Caregiver verified no other encounters exist for this prescription request: Yes Caregiver confirmed with patient/requestor that no other refills are due, in the near future, with this provider at this time: Yes The last office visit in the department: 03-28-25 Does the patient have a future office visit with this provider/department: No Requested Prescriptions Pending Prescriptions Disp Refills mirtazapine (REMERON) 15 mg tablet 30 tablet 2 Sig: Take 1 tablet by mouth daily at bedtime. Lisa Carranza May 12, 2025 10:08 AM [facility] 05-12-2025 Miscellaneous Notes Prescription Refill Information The patient has been identified by name and date of : Yes Caregiver verified no other encounters exist for this prescription request: Yes Caregiver confirmed with patient/requestor that no other refills are due, in the near future, with this provider at this time: Yes The last office visit in the department: 03-28-25 Does the patient have a future office visit with this provider/department: No Requested Prescriptions Pending Prescriptions Disp Refills mirtazapine (REMERON) 15 mg tablet 30 tablet 2 Sig: Take 1 tablet by mouth daily at bedtime. Lisa Carranza May 12, 2025 10:08 AM documented in this encounter [facility] 04-17-2025 Telephone encounter Note Ok ordered liquid. If can not tolerate liquid may switch to capsule. [facility] 04-17-2025 Miscellaneous Notes Ok ordered liquid. If can not tolerate liquid may switch to capsule. Call placed to [facility]. Patient has been taking potassium but sometimes refuses. Patient has difficulty swallowing the potassium pills and nursing staff asking if she could get the liquid form instead. Rula Hernandez RN Potassium was last refilled in February. Check to see if she has been taking it in March. This will help determine if she still is in need of supplemental potassium. Potassium March 28 at 4.6. [facility] with [facility] calls [facility] is listed as historical but looks like we were ordering previously. Last OV: 03/28/2025 Next OV: 04/17/2025 Please review and adviseRula RN documented in this encounter [facility] 04-17-2025 Telephone encounter Note Call placed to [facility]. Patient has been taking potassium but sometimes refuses. Patient has difficulty swallowing the potassium pills and nursing staff asking if she could get the liquid form instead. Rula Hernandez RN [facility] 04-13-2025 Telephone encounter Note Potassium was last refilled in February. Check to see if she has been taking it in March. This will help determine if she still is in need of supplemental potassium. Potassium March 28 at 4.6. [facility] 04-13-2025 Telephone encounter Note [facility] calls to request refill of potassium 20 mEq's daily at the request of [facility]. Medication is listed as historical but looks like we were ordering previously. Last OV: 03/28/2025 Next OV: 04/17/2025 Please review and adviseRula RN [facility] 04-04-2025 Telephone encounter Note Spoke with nurse at [facility] and script received and they will inform patient and give her antibiotic Kimi BARBY Pelayo [facility] 04-04-2025 Miscellaneous Notes Spoke with nurse at [facility] and script received and they will inform patient and give her antibiotic Kimi BARBY Pelayo Urine culture results from [facility] shows e coli UTI. Infection is susceptible to Macrobid. Script sent to [facility] pharmacy. Please fax signed order to [facility]. documented in this encounter [facility] 04-04-2025 Telephone encounter Note Urine culture results from [facility] shows e coli UTI. Infection is susceptible to Macrobid. Script sent to [facility] pharmacy. Please fax signed order to [facility]. [facility] 03-28-2025 Note Addended by: NORA CRESPO on: 03/28/2025 03:00 PM Modules accepted: Orders [facility] 03-28-2025 Miscellaneous Notes Addended by: NORA CRESPO on: 03/28/2025 03:00 PM Modules accepted: Orders documented in this encounter [facility] 03-28-2025 Telephone encounter Note Faxed to [facility] [phone] Peyton Lindo MA [facility] 03-28-2025 Miscellaneous Notes Faxed to [facility] [phone] Peyton Lindo MA Can we please send the med list from patient's visit today to [facility]? Please call and let them know that I went through and compared their med list with ours and the one we have should be her current medications (including changes made today). Please let them know that we did not have Zoloft (sertraline) on our list. This can be discontinued, we increased her Cymbalta and added Remeron today. We also sent a script for ketoconazole shampoo and we will prescribe her Ativan since [facility] has changed its policy and will no longer prescribe this for her. documented in this encounter [facility] 03-28-2025 Telephone encounter Note Can we please send the med list from patient's visit today to [facility]? Please call and let them know that I went through and compared their med list with ours and the one we have should be her current medications (including changes made today). Please let them know that we did not have Zoloft (sertraline) on our list. This can be discontinued, we increased her Cymbalta and added Remeron today. We also sent a script for ketoconazole shampoo and we will prescribe her Ativan since [facility] has changed its policy and will no longer prescribe this for her. [facility] 03-28-2025 Instructions Nora Crespo APRN.CNP - 03/28/2025 11:50 AM EDT We are going to check a urine test. Start using the shampoo I sent in three times a week. We will send for a shower chair with a back. We will stop the melatonin and start mirtazapine at bedtime. Increase the Cymbalta to 60 mg daily. Get labs done. Okay for the Ativan as three times daily as need for anxiety. documented in this encounter [facility] 03-28-2025 Note HNO ID: [id number] Author: NORA CRESPO APRN.CNP Service: ? Author Type: Nurse Practitioner Type: Progress Notes Filed: 03/28/2025 14:11 Note Text: SUBJECTIVE Marcia Mascorro is a 69 year old female here today for a check up on her medical problems. Chief Complaint Patient presents with: Follow Up: Medication HPI. Marcia Mascorro is a 69-year-old female with a history of anxiety, depression, and chronic pain, presenting with new onset of scalp pruritus and black spots on her scalp, as well as concerns about recent discontinuation of Ativan. Marcia reports a 2-day history of intense scalp pruritus and the appearance of black spots on her scalp. She describes her scalp as very dry and notes that the pruritus is severe enough to cause significant discomfort. She has been picking at her scalp and hair, which is unusual behavior for her. She denies seeing any lice or other visible parasites. Marcia also reports feeling crazy and not like herself since her Ativan was discontinued 3 days ago. She has been on Ativan for a long time to manage her anxiety and has not taken any doses in the last 3 days. She denies any withdrawal symptoms such as tremors, seizures, or hallucinations, but feels more anxious and stressed than usual. She has a history of chronic pain and is under the care of a bobbin painter. She is taking multiple medications, including Phenergan for nausea, which she finds effective. She uses oxygen at home at 3 liters per minute and reports no issues with her breathing. She also takes water pills and uses Milk of Magnesia for constipation, which she experiences frequently. Marcia reports poor sleep quality and has been taking melatonin without significant improvement. She feels more depressed and anxious than usual and attributes this to her chronic illness and recent changes in her medication regimen. She also reports feeling more stressed due to her upcoming bariatric surgery and the recent of a close friend. She is accompanied by her son who reports that Marcia has been more anxious and stressed than usual and is concerned about the sudden discontinuation of Ativan. Her medications were reviewed today and her list is now up to date. Medications Current Outpatient Medications Medication Sig potassium chloride ER (KLOR-CON) 20 mEq tablet Take 20 mEq by mouth once daily. Nutritional Supplements (OPTIMENTAL) liqd Take 237 mL by mouth once daily. Okay with what insurance covers Diaper,Brief, Adult,Disposable (DEPEND EASY FIT UNDERGARMENTS) Size Large pull up. Change depends once every 1-2 hrs. Dx incontinence (788.30) Prolapsed bladder (618.01) oxyCODONE myristate (XTAMPZA ER) 27 mg CSpT Take 1 capsule by mouth two times a day. acetaminophen (TYLENOL) 325 mg tablet Take 650 mg by mouth every 4 hours as needed. albuterol-budesonide HFA (AIRSUPRA) 90-80 mcg/actuation inhaler Inhale 2 puffs as instructed every 2 hours as needed for wheezing/shortness of breath. Do not take more than 12 inhalations in a 24 hour period. atorvastatin (LIPITOR) 40 mg tablet Take 1 tablet by mouth daily at bedtime. clopidogrel (PLAVIX) 75 mg tablet Take 1 tablet by mouth once daily. DULoxetine DR (CYMBALTA) 60 mg capsule Take 1 capsule by mouth once daily. gabapentin (NEURONTIN) 400 mg capsule Take 1 capsule by mouth two times a day for 360 days. lisinopril (ZESTRIL) 5 mg tablet Take 1 tablet by mouth once daily. omeprazole (PRILOSEC) 40 mg capsule Take 1 capsule by mouth once daily. promethazine (PHENERGAN) 25 mg tablet Take 1 tablet by mouth every 6 hours as needed for nausea/vomiting. senna-docusate (SENNA PLUS) 8.6-50 mg per tablet Take 1 tablet by mouth every morning AND 1 tablet daily at bedtime. spironolactone (ALDACTONE) 25 mg tablet Take 1 tablet by mouth once daily. sucralfate (CARAFATE) 100 mg/mL suspension Take 10 mL by mouth four times daily. (take prior to meals and at bedtime) tiotropium bromide (SPIRIVA RESPIMAT) 2.5 mcg/actuation inhaler Inhale 2 puffs as instructed once daily. Inhale two puffs once daily. Cholecalciferol, Vitamin D3, 125 mcg (5,000 unit) cap Take 1 capsule by mouth once daily. magnesium hydroxide (MILK OF MAGNESIA) 400 mg/5 mL suspension Take 30 mL by mouth once daily as needed for constipation. ketoconazole (NIZORAL) 2 % shampoo Apply to affected area three times a week. mirtazapine (REMERON) 15 mg tablet Take 1 tablet by mouth daily at bedtime. LORazepam (ATIVAN) 1 mg tablet Take 1 tablet by mouth three times a day as needed for anxiety for up to 90 days. carvedilol (COREG) 25 mg tablet Take 1 tablet by mouth two times a day with meals. furosemide (LASIX) 40 mg tablet Take 1 tablet by mouth once daily. No current facility-administered medications for this visit. ALLERGIES Allergen Reactions Contrast Dye [Iodin* Anaphylaxis ACTIVE PROBLEM LIST Retana's Esophagus - 08/21/2016 (A priorit (more content not included)... [facility] 03-28-2025 History of Presen t illness Narrative SUBJECTIVE Marcia Mascorro is a 69 year old female here today for a check up on her medical problems. Chief Complaint Patient presents with: Follow Up: Medication HPI. Marcia Mascorro is a 69-year-old female with a history of anxiety, depression, and chronic pain, presenting with new onset of scalp pruritus and black spots on her scalp, as well as concerns about recent discontinuation of Ativan. Marcia reports a 2-day history of intense scalp pruritus and the appearance of black spots on her scalp. She describes her scalp as very dry and notes that the pruritus is severe enough to cause significant discomfort. She has been picking at her scalp and hair, which is unusual behavior for her. She denies seeing any lice or other visible parasites. Marcia also reports feeling crazy and not like herself since her Ativan was discontinued 3 days ago. She has been on Ativan for a long time to manage her anxiety and has not taken any doses in the last 3 days. She denies any withdrawal symptoms such as tremors, seizures, or hallucinations, but feels more anxious and stressed than usual. She has a history of chronic pain and is under the care of a bobbin painter. She is taking multiple medications, including Phenergan for nausea, which she finds effective. She uses oxygen at home at 3 liters per minute and reports no issues with her breathing. She also takes water pills and uses Milk of Magnesia for constipation, which she experiences frequently. Marcia reports poor sleep quality and has been taking melatonin without significant improvement. She feels more depressed and anxious than usual and attributes this to her chronic illness and recent changes in her medication regimen. She also reports feeling more stressed due to her upcoming bariatric surgery and the recent of a close friend. She is accompanied by her son who reports that Marcia has been more anxious and stressed than usual and is concerned about the sudden discontinuation of Ativan. Her medications were reviewed today and her list is now up to date. Medications Current Outpatient Medications Medication Sig potassium chloride ER (KLOR-CON) 20 mEq tablet Take 20 mEq by mouth once daily. Nutritional Supplements (OPTIMENTAL) liqd Take 237 mL by mouth once daily. Okay with what insurance covers Diaper,Brief, Adult,Disposable (DEPEND EASY FIT UNDERGARMENTS) Size Large pull up. Change depends once every 1-2 hrs. Dx incontinence (788.30) Prolapsed bladder (618.01) oxyCODONE myristate (XTAMPZA ER) 27 mg CSpT Take 1 capsule by mouth two times a day. acetaminophen (TYLENOL) 325 mg tablet Take 650 mg by mouth every 4 hours as needed. albuterol-budesonide HFA (AIRSUPRA) 90-80 mcg/actuation inhaler Inhale 2 puffs as instructed every 2 hours as needed for wheezing/shortness of breath. Do not take more than 12 inhalations in a 24 hour period. atorvastatin (LIPITOR) 40 mg tablet Take 1 tablet by mouth daily at bedtime. clopidogrel (PLAVIX) 75 mg tablet Take 1 tablet by mouth once daily. DULoxetine DR (CYMBALTA) 60 mg capsule Take 1 capsule by mouth once daily. gabapentin (NEURONTIN) 400 mg capsule Take 1 capsule by mouth two times a day for 360 days. lisinopril (ZESTRIL) 5 mg tablet Take 1 tablet by mouth once daily. omeprazole (PRILOSEC) 40 mg capsule Take 1 capsule by mouth once daily. promethazine (PHENERGAN) 25 mg tablet Take 1 tablet by mouth every 6 hours as needed for nausea/vomiting. senna-docusate (SENNA PLUS) 8.6-50 mg per tablet Take 1 tablet by mouth every morning AND 1 tablet daily at bedtime. spironolactone (ALDACTONE) 25 mg tablet Take 1 tablet by mouth once daily. sucralfate (CARAFATE) 100 mg/mL suspension Take 10 mL by mouth four times daily. (take prior to meals and at bedtime) tiotropium bromide (SPIRIVA RESPIMAT) 2.5 mcg/actuation inhaler Inhale 2 puffs as instructed once daily. Inhale two puffs once daily. Cholecalciferol, Vitamin D3, 125 mcg (5,000 unit) cap Take 1 capsule by mouth once daily. magnesium hydroxide (MILK OF MAGNESIA) 400 mg/5 mL suspension Take 30 mL by mouth once daily as needed for constipation. ketoconazole (NIZORAL) 2 % shampoo Apply to affected area three times a week. mirtazapine (REMERON) 15 mg tablet Take 1 tablet by mouth daily at bedtime. LORazepam (ATIVAN) 1 mg tablet Take 1 tablet by mouth three times a day as needed for anxiety for up to 90 days. carvedilol (COREG) 25 mg tablet Take 1 tablet by mouth two times a day with meals. furosemide (LASIX) 40 mg tablet Take 1 tablet by mouth once daily. No current facility-administered medications for this visit. ALLERGIES Allergen Reactions Contrast Dye [Iodin* Anaphylaxis ACTIVE PROBLEM LIST Retana's Esophagus - 08/21/2016 (A priority) Mixed Hyperlipidemia - 07/10/2014 (A priority) Anxiety (A priority) Comment: Per counseling center Depression (A priority) Gerd (Gastroesophageal Reflux Disease) (A priority) Essential Hypertension, Benign (A priority) Comment: Sees Dr. Moodispaw Heart Palpitations - 09/29/2016 (B priority) Comment: [...] Dr. Nael Johnson - 12/30/2005 (M priority) Abdominal Aneurysm - 04/11/2024 Jovany (Acute Kidney Injury) - 12/23/2023 Abdominal Pain - 12/20/2023 Anaphylaxis Due to Contrast Media - 12/20/2023 S/P Cholecystectomy - 12/20/2023 Postoperative Abscess - 12/20/2023 Postoperative Bile Leak - 12/20/2023 Copd (Chronic Obstructive Pulmonary Disease) ([facility]) - 12/20/2023 Chronic Combined Systolic and Diastolic Chf (Congestive Heart Failure) ([facility]) - 12/20/2023 Coronary Artery Disease Due to Lipid Rich Plaque - 12/13/2023 Pulmonary Emphysema ([facility]) - 12/13/2023 Obesity, Class I, Bmi 30-34.9 - 12/11/2023 Choledocholithiasis - 12/07/2023 Chronic Back Pain - 12/07/2023 Compression Fracture of Thoracic Vertebra ([facility]) - 12/01/2023 Diabetes Mellitus ([facility]) - 01/13/2023 Cardiomyopathy in Disease Classified Elsewhere ([facility]) - 01/13/2023 Supraventricular Tachycardia ([facility]) - 01/13/2023 Oab (Overactive Bladder) - 02/18/2019 Elevated Plasma Metanephrines - 03/17/2018 Hyperthyroidism - 03/17/2018 High Catecholamines - 03/17/2018 Tremor - 06/24/2017 Memory Difficulties - 06/24/2017 Neoplasm of Uncertain Behavior of Back - 12/22/2016 Visual Disturbances - 08/21/2016 Social History Tobacco Use Smoking status: Every Day Current packs/day: 0.00 Average packs/day: 1 pack/day for 40.0 years (40.0 ttl pk-yrs) Types: Cigarettes Start date: 09/21/1983 Last attempt to quit: 09/21/2023 Years since quittin.5 Smokeless tobacco: Never Tobacco comments: 7 cigarette. Quit in Middle of September 2023. Restarted February 2024 Vaping Use Vaping status: Never Used Substance Use Topics Alcohol use: No Drug use: No Review of Systems Respiratory: Negative. Cardiovascular: Negative. Psychiatric/Behavioral: Positive for confusion, dysphoric mood and sleep disturbance. Negative for self-injury and suicidal ideas. The patient is nervous/anxious. OBJECTIVE BP 106/62 Pulse 60 Resp 14 Ht 5' 3.78 (1.62m) Wt 171 lb 11.8 oz (77.9kg) SpO2 90% BMI 29.68 kg/(m^2). Physical Exam Vitals and nursing note reviewed. Constitutional: General: She is awake. She is not in acute distress. Appearance: Normal appearance. She is well-developed and well-groomed. She is not ill-appearing, toxic-appearing or diaphoretic. HENT: Head: Normocephalic. Right Ear: External ear normal. Left Ear: External ear normal. Nose: Nose normal. Eyes: General: Vision grossly intact. Conjunctiva/sclera: Conjunctivae normal. Pupils: Pupils are equal, round, and reactive to light. Neck: Vascular: No JVD. Trachea: Trachea normal. Pulmonary: Effort: Pulmonary effort is normal. No accessory muscle usage, prolonged expiration or respiratory distress. Musculoskeletal: Cervical back: Neck supple. Skin: General: Skin is warm and dry. Capillary Refill: Capillary refill takes less than 2 seconds. Neurological: General: No focal deficit present. Mental Status: She is alert and oriented to person, place, and time. Mental status is at baseline. Psychiatric: Attention and Perception: Attention and perception normal. Mood and Affect: Mood is anxious. Affect is tearful. Speech: Speech normal. Behavior: Behavior is agitated. Behavior is cooperative. Thought Content: Thought content normal. Cognition and Memory: Cognition and memory normal. Judgment: Judgment normal. ASSESSMENT/PLAN: 1. Confusion (R41.0) Recent onset of confusion and altered mental status, possibly related to abrupt discontinuation of Ativan or a urinary tract infection. - Ordered urine analysis and culture to rule out UTI. - Ordered comprehensive blood work including electrolytes, magnesium, vitamin D, and B12 levels. - Follow-up appointment scheduled in one week to reassess condition. 2. Anxiety (F41.9) Major depressive disorder, recurrent, moderate (HCC) (F33.1) Insomnia, unspecified type (G47.00) Anxiety and depression with poor sleep quality. Recent discontinuation of Ativan may contribute to current symptoms. - Discontinued melatonin. - Initiated mirtazapine 15 mg orally at bedtime. - Increased duloxetine dosage. - Resumed Ativan 1 mg up to three times daily as needed for anxiety. - Referral to behavioral health social work msw for additional support and resources. 3. Neuropathy (G62.9) Chronic neuropathic pain. - Increased duloxetine dosage to provide additional pain relief. 4. Epigastric pain (R10.13) Gastroesophageal reflux disease with esophagitis without hemorrhage (K21.00) Chronic epigastric pain and GERD managed with current medications. 5. Nausea (R11.0) Chronic nausea managed with Phenergan and Zofran. - Continue Phenergan as primary antiemetic. 6. Hypokalemia (E87.6) History of hypokalemia. - Ordered blood work to monitor electrolyte levels. 7. Encounter for screening mammogram for breast cancer (Z12.31) 8. Encounter for therapeutic drug monitoring (Z51.81) 9. Vitamin D deficiency (E55.9) History of vitamin D deficiency. - Ordered blood work to monitor vitamin D levels. 10. IFG (impaired fasting glucose) (R73.01) 11. Chronic pain syndrome (G89.4) Chronic pain managed with current medications. - Increased duloxetine dosage to provide additional pain relief. 12. Dependence on supplemental oxygen (Z99.81) Requires supplemental oxygen at 3 L/min at home. - Continue current oxygen therapy. 13. Seborrheic dermatitis of scalp (L21.9) Dry, itchy scalp with visible black spots, consistent with seborrheic dermatitis. - Prescribed medicated shampoo to be used up to three times a week. I spent a total of 48 minutes on the date of the service which included preparing to see the patient, [id number] patient care, completing clinical documentation, obtaining and/or reviewing separately obtained history, performing a medically appropriate examination, counseling and educating the patient/family/caregiver, ordering medications, tests, or procedures, independently interpreting results (not separately reported), and communicating results to the patient/family/caregiver. Portions of this note have been entered [...] symptoms not improving or if they worsen. See diagnoses and orders for additional plan(s). Allergies and medications were reviewed, list was updated, and refills given if needed. Past medical, surgical, social, and family history reviewed and updated as appropriate. Encouraged proper diet & exercise as well as compliance with taking medications. Age-appropriate health preventative measures were discussed. Return in about 1 week (around 04/04/2025) for recheck. MATT Quevedo documented in this encounter [facility] 03-13-2025 Telephone encounter Note Spoke with patient regarding the following information: Procedure is scheduled for ThursdayMarch 20 at 7:30am. Please arrive by 6:30am to check in at the endoscopy unit. Gastroenterology is located at desk [address]31 in the [facility] ([facility]/[address] [place] [address]). Park in the [address] or use [facility] Parking. Visit [email or web address] for up-to-date visitor restrictions and mask requirements. Construction alerts and updates are available online at [email or web address] You will be receiving IV (intravenous) sedation. Your ride MUST be present upon arrival to and MUST remain on the [facility] Main [place] for the duration of the procedure or your procedure will be cancelled. You MUST have a responsible person come with you and either drive you home or be with you while riding in public transportation (bus or taxi). You are NOT allowed to drive or leave the Endoscopy Center alone. Your procedure will be cancelled if your ride cannot be confirmed. Public transportation by yourself is not allowed. Most procedures take approximately 45-60 minutes. You and your responsible person must remain in the Endoscopy Center and be reachable by phone until you recover from your sedation. Most patients are discharged 1-2 hours after the procedure is completed. If you are taking Coumadin (Warfarin), Clopidogrel (Plavix), Aspirin, Ticlid, Aggrenox or other blood thinners, you must speak with your prescribing physician or the specialist performing the Endoscopy procedure at least 2 weeks PRIOR to your scheduled appointment. If you are taking Insulin , long-acting Insulin (NPH), Lantus, Humalog, 70/30 Insulin, or any other medication to lower your blood sugar, contact your prescribing physician for instructions PRIOR to your procedure If you are taking medication for weight loss, contact your prescribing physician at least 1 week PRIOR to your procedure If you are taking medication for High Blood Pressure, Seizures, Asthma, Thyroid Disease, Irregular Heartbeat or taking Prednisone, you must take your medication on the morning of your procedure with a sip of water. If you take potent water pills, such as Lasix or Metolozone, do NOT take these the day before your procedure. Resume taking your water pill after the Endoscopy has been completed. If you take Iron pills, stop taking them 7 days PRIOR to the procedure. If you are taking non-steroidal anti-inflammatory drugs, such as Ibuprofen, (Motrin, Aleve), stop taking them 5 day PRIOR to the procedure. For all procedures including colonoscopy, EGD, EUS, ERCP, or enteroscopy, do NOT eat or drink ANYTHING after midnight unless otherwise indicated in your bowel prep instructions. If you have any questions, please call . If you need to cancel or reschedule your Endoscopy procedure, please call , option 1. [facility] 03-13-2025 Miscellaneous Notes Spoke with patient regarding the following information: Procedure is scheduled for ThursdayMarch 20 at 7:30am. Please arrive by 6:30am to check in at the Q3 endoscopy unit. Gastroenterology is located at desk Q31 in the [facility] ([facility]/[address] [place], [place] [id number]). Park in the [address] or use [facility] Parking. Visit [email or web address] for up-to-date visitor restrictions and mask requirements. Construction alerts and updates are available online at [email or web address] You will be receiving IV (intravenous) sedation. Your ride MUST be present upon arrival to and MUST remain on the [facility] Main [place] for the duration of the procedure or your procedure will be cancelled. You MUST have a responsible person come with you and either drive you home or be with you while riding in public transportation (bus or taxi). You are NOT allowed to drive or leave the Endoscopy Center alone. Your procedure will be cancelled if your ride cannot be confirmed. Public transportation by yourself is not allowed. Most procedures take approximately 45-60 minutes. You and your responsible person must remain in the Endoscopy Center and be reachable by phone until you recover from your sedation. Most patients are discharged 1-2 hours after the procedure is completed. If you are taking Coumadin (Warfarin), Clopidogrel (Plavix), Aspirin, Ticlid, Aggrenox or other blood thinners, you must speak with your prescribing physician or the specialist performing the Endoscopy procedure at least 2 weeks PRIOR to your scheduled appointment. If you are taking Insulin , long-acting Insulin (NPH), Lantus, Humalog, 70/30 Insulin, or any other medication to lower your blood sugar, contact your prescribing physician for instructions PRIOR to your procedure If you are taking medication for weight loss, contact your prescribing physician at least 1 week PRIOR to your procedure If you are taking medication for High Blood Pressure, Seizures, Asthma, Thyroid Disease, Irregular Heartbeat or taking Prednisone, you must take your medication on the morning of your procedure with a sip of water. If you take potent water pills, such as Lasix or Metolozone, do NOT take these the day before your procedure. Resume taking your water pill after the Endoscopy has been completed. If you take Iron pills, stop taking them 7 days PRIOR to the procedure. If you are taking non-steroidal anti-inflammatory drugs, such as Ibuprofen, (Motrin, Aleve), stop taking them 5 day PRIOR to the procedure. For all procedures including colonoscopy, EGD, EUS, ERCP, or enteroscopy, do NOT eat or drink ANYTHING after midnight unless otherwise indicated in your bowel prep instructions. If you have any questions, please call . If you need to cancel or reschedule your Endoscopy procedure, please call , option 1. documented in this encounter [facility] 03-13-2025 Telephone encounter Note Lvm for pt to c/b and confirm the new date/time works. Will send MC message as well [facility] 03-13-2025 Miscellaneous Notes Lvm for pt to c/b and confirm the new date/time works. Will send MC message as well documented in this encounter [facility] 02-09-2025 History and physical note Images from the original note were not included. STAFF NOTE I have seen and evaluated the patient and discussed the case with the resident physician. I agree with the assessment and plan as documented in the resident s note. 69 F with large type III paraesophageal hernia. She has dysphagia as well and has had previous dilations. She will need EGD, esophageal manometry, and cardiac optimization prior to repair. Grace Chaudhary MD PhD [facility] pie crust mixer CCLCM of [facility] Bariatric, Foregut, and Flexible Endoscopic Surgery [facility] [address] [place] [address] GENERAL SURGERY INITIAL CONSULT NOTE SERVICE DATE: 02/09/2025 SERVICE TIME: 4:01 PM REASON FOR CONSULT: Hiatal Hernia REQUESTING PHYSICIAN: Christoph PRIMARY CARE PHYSICIAN: Gabriel Galvan MD Subjective Ms. Mascorro is a 69 year old female with PMHx of CAD, CHF (EF 20%), HTN, GERD, COPD, Diabetes, Retana's esophagus, who presents with abdominal pain, nausea and weight loss. Last seen with Dr. Balbuena in 06/2024 for hiatal hernia. Was recommended to obtain EGD, Manometry, and cardiac optimization, but was lost to follow-up. She returns to clinic today seeking definitive management of her symptoms. She describes: Food gets stuck in throat Nausea Hungry, but can't eat much due to the pain 18 pound weight loss over past couple Reports unbearable pain Reports being on 2-3L of O2 over the past few months Not receiving adequate care at her assisted care facility Son reports she has become more dependent from being sick all the time She expresses distress and being in constant pain. On plavix for history of blood clots 1 PPD smoker. Has COPD, on 2-3 L at home Abdominal surgical history: Lap cholecystectomy, total abdominal hysterectomy. FUNCTIONAL STATUS: Partially dependent PAST MEDICAL HISTORY Diagnosis Date Abdominal aortic aneurysm JOVANY (acute kidney injury) Anaphylactic reaction due to contrast Anxiety Retana's esophagus with high grade dysplasia 06/24/2023 biopsy interpretation: prominent low-grade dysphasia & focal superficial high-grad dysplasia Retana's esophagus without dysplasia 09/13/2019 Bile leak, postoperative CAD (coronary artery disease) CHF (congestive heart failure) (HCC) Chronic back pain Chronic pain low back, sees pain MGT: Dr. Nayak Compression fracture of thoracic vertebra (HCC) COPD (chronic obstructive pulmonary disease) (HCC) Depression Diabetes mellitus (HCC) Diverticulosis Essential hypertension, benign Sees Dr. Best GERD (gastroesophageal reflux disease) Hiatal hernia 06/24/2023 Hyperthyroidism Incontinence 07/07/2014 LV (left ventricular) mural thrombus 12/01/2023 Mixed hyperlipidemia Obesity Opioid dependence (HCC) 01/15/2020 In 180 as of 01/2020 per ER report from [facility]. Palpitation Primary cardiomyopathy (HCC) Pulmonary emphysema (HCC) Schatzki's ring 06/24/2023 SVT (supraventricular tachycardia) (HCC) Tremor PAST SURGICAL HISTORY Procedure Laterality Date 2D ECHO (EXEP) 01/19/2017 EF=55%, mild LVH, LA enlargement, TX and TI, Diastolic dysfunction. 2D ECHO (EXEP) 12/18/2017 EF=55%, mild LVH, mild diastolic dysfunct, COLONOSCOPY SCREENING 04/16/2016 mac. repeat 10 yrs EGD W/O [facility]SH SPEC VARICIES INJ 04/16/2016 v EGD WITH BIOPSY(S) 07/28/2023 dilation of pylorus; Dr. Martinez ERCP DUCT STENT PLACEMENT 07/28/2023 Dr. Michelle Morris EGD WITH DILATATION 06/24/2023 Retana's-prominent low-grade dysphasia & focal superficial high-grad dysplasia; hiatal hernia; Dr. Martinez LAPAROSCOPIC CHOLECYSTECTOMY 12/09/2023 Dr. Tejada TOTAL ABDOMINAL HYSTERECT W/WO RMVL TUBE OVARY FAMILY HISTORY Problem Relation Age of Onset Breast Cancer Sister Heart Mother Diabetes Mother Stroke Mother Hypertension Mother Heart Maternal Grandmother Heart Brother Social History Tobacco Use Smoking status: Every Day Current packs/day: 0.00 Average packs/day: 1 pack/day for 40.0 years (40.0 ttl pk-yrs) Types: Cigarettes Start date: 09/21/1983 Last attempt to quit: 09/21/2023 Years since quittin.3 Smokeless tobacco: Never Tobacco comments: 7 cigarette. Quit in Middle of September 2023. Restarted February 2024 Vaping Use Vaping status: Never Used Substance Use Topics Alcohol use: No Drug use: No (Not in a hospital admission) No current facility-administered medications for this visit. Allergies As of Date: 02/09/2025 Allergen Noted Reaction CONTRAST DYE [IODINE] 12/20/2023 Anaphylaxis Fully Assessed 02/09/2025 COMPLETE REVIEW OF SYSTEMS: RESPIRATORY: COPD CARDIOVASCULAR: Echo from 2022 revealed ejection fraction of 20% Objective PHYSICAL EXAM: Physical Exam Performed: GENERAL: Alert, no distress, cooperative LUNGS: Non labored breathing on room air CARDIAC: Warm and well perfused ABDOMEN: Abdomen soft, tender in epigastric region. Well healed surgical scars from prior lap cholecystectomy BP 96/60 Pulse 101 Ht 5' 5 (1.65m) Wt 179 lb 7.3 oz (81.4kg) BMI 29.86 kg/(m^2). DATA: Diagnostic tests reviewed for today's visit: Most recent labs and imaging results. IMPRESSION AND PLAN: This is a 68 year old female who presents with a symptomatic Type III paraesophageal hernia. She has a long history of GERD including, Retana's esophagus, esophageal stricture. Her PMH is complex, with CHF (20% EF), COPD, current smoker. Plan - Esophageal Manometry - EGD with Dr. Chaudhary - Cardiac optimization - Return to clinic after the above have been completed to plan surgical repair Grace Chaudhary MD PhD [facility] pie crust mixer CCL of [facility] Bariatric, Foregut, and Flexible Endoscopic Surgery [facility] [address] [place] [address] [facility] 02-09-2025 History and physical note Images from the original note were not included. STAFF NOTE I have seen and evaluated the patient and discussed the case with the resident physician. I agree with the assessment and plan as documented in the resident s note. 69 F with large type III paraesophageal hernia. She has dysphagia as well and has had previous dilations. She will need EGD, esophageal manometry, and cardiac optimization prior to repair. Grace Chaudhary MD PhD [facility] pie crust mixer [facility] of [facility] Bariatric, Foregut, and Flexible Endoscopic Surgery [facility] [address] [place] [id number] GENERAL SURGERY INITIAL CONSULT NOTE SERVICE DATE: 02/09/2025 SERVICE TIME: 4:01 PM REASON FOR CONSULT: Hiatal Hernia REQUESTING PHYSICIAN: Self PRIMARY CARE PHYSICIAN: Gabriel Galvan MD Subjective Ms. Mascorro is a 69 year old female with PMHx of CAD, CHF (EF 20%), HTN, GERD, COPD, Diabetes, Retana's esophagus, who presents with abdominal pain, nausea and weight loss. Last seen with Dr. Balbuena in 06/2024 for hiatal hernia. Was recommended to obtain EGD, Manometry, and cardiac optimization, but was lost to follow-up. She returns to clinic today seeking definitive management of her symptoms. She describes: Food gets stuck in throat Nausea Hungry, but can't eat much due to the pain 18 pound weight loss over past couple Reports unbearable pain Reports being on 2-3L of O2 over the past few months Not receiving adequate care at her assisted care facility Son reports she has become more dependent from being sick all the time She expresses distress and being in constant pain. On plavix for history of blood clots 1 PPD smoker. Has COPD, on 2-3 L at home Abdominal surgical history: Lap cholecystectomy, total abdominal hysterectomy. FUNCTIONAL STATUS: Partially dependent PAST MEDICAL HISTORY Diagnosis Date Abdominal aortic aneurysm JOVANY (acute kidney injury) Anaphylactic reaction due to contrast Anxiety Retana's esophagus with high grade dysplasia 06/24/2023 biopsy interpretation: prominent low-grade dysphasia & focal superficial high-grad dysplasia Retana's esophagus without dysplasia 09/13/2019 Bile leak, postoperative CAD (coronary artery disease) CHF (congestive heart failure) (HCC) Chronic back pain Chronic pain low back, sees pain MGT: Dr. Nayak Compression fracture of thoracic vertebra (HCC) COPD (chronic obstructive pulmonary disease) (HCC) Depression Diabetes mellitus (HCC) Diverticulosis Essential hypertension, benign Sees Dr. Best GERD (gastroesophageal reflux disease) Hiatal hernia 06/24/2023 Hyperthyroidism Incontinence 07/07/2014 LV (left ventricular) mural thrombus 12/01/2023 Mixed hyperlipidemia Obesity Opioid dependence (HCC) 01/15/2020 In 180 as of 01/2020 per ER report from [facility]. Palpitation Primary cardiomyopathy (HCC) Pulmonary emphysema (HCC) Schatzki's ring 06/24/2023 SVT (supraventricular tachycardia) (HCC) Tremor PAST SURGICAL HISTORY Procedure Laterality Date 2D ECHO (EXEP) 01/19/2017 EF=55%, mild LVH, LA enlargement, TX and TI, Diastolic dysfunction. 2D ECHO (EXEP) 12/18/2017 EF=55%, mild LVH, mild diastolic dysfunct, COLONOSCOPY SCREENING 04/16/2016 mac. repeat 10 yrs EGD W/O [facility] SPEC VARICIES INJ 04/16/2016 v EGD WITH BIOPSY(S) 07/28/2023 dilation of pylorus; Dr. Martinez ERCP DUCT STENT PLACEMENT 07/28/2023 Dr. Martinez F EGD WITH DILATATION 06/24/2023 Retana's-prominent low-grade dysphasia & focal superficial high-grad dysplasia; hiatal hernia; Dr. Martinez LAPAROSCOPIC CHOLECYSTECTOMY 12/09/2023 Dr. Tejada TOTAL ABDOMINAL HYSTERECT W/WO RMVL TUBE OVARY FAMILY HISTORY Problem Relation Age of Onset Breast Cancer Sister Heart Mother Diabetes Mother Stroke Mother Hypertension Mother Heart Maternal Grandmother Heart Brother Social History Tobacco Use Smoking status: Every Day Current packs/day: 0.00 Average packs/day: 1 pack/day for 40.0 years (40.0 ttl pk-yrs) Types: Cigarettes Start date: 09/21/1983 Last attempt to quit: 09/21/2023 Years since quittin.3 Smokeless tobacco: Never Tobacco comments: 7 cigarette. Quit in Middle of September 2023. Restarted February 2024 Vaping Use Vaping status: Never Used Substance Use Topics Alcohol use: No Drug use: No (Not in a hospital admission) No current facility-administered medications for this visit. Allergies As of Date: 02/09/2025 Allergen Noted Reaction CONTRAST DYE [IODINE] 12/20/2023 Anaphylaxis Fully Assessed 02/09/2025 COMPLETE REVIEW OF SYSTEMS: RESPIRATORY: COPD CARDIOVASCULAR: Echo from 2022 revealed ejection fraction of 20% Objective PHYSICAL EXAM: Physical Exam Performed: GENERAL: Alert, no distress, cooperative LUNGS: Non labored breathing on room air CARDIAC: Warm and well perfused ABDOMEN: Abdomen soft, tender in epigastric region. Well healed surgical scars from prior lap cholecystectomy BP 96/60 Pulse 101 Ht 5' 5 (1.65m) Wt 179 lb 7.3 oz (81.4kg) BMI 29.86 kg/(m^2). DATA: Diagnostic tests reviewed for today's visit: Most recent labs and imaging results. IMPRESSION AND PLAN: This is a 68 year old female who presents with a symptomatic Type III paraesophageal hernia. She has a long history of GERD including, Retana's esophagus, esophageal stricture. Her PMH is complex, with CHF (20% EF), COPD, current smoker. Plan - Esophageal Manometry - EGD with Dr. Chaudhary - Cardiac optimization - Return to clinic after the above have been completed to plan surgical repair Grace Chaudhary MD PhD [facility] pie crust mixer CCLCM of [facility] Bariatric, Foregut, and Flexible Endoscopic Surgery [facility] [address] [place] [address]. [place] [address] documented in this encounter [facility] 01-24-2025 Telephone encounter Note 2nd message left asking Regina to return call and speak with a nurse. [facility] 01-24-2025 Miscellaneous Notes 2nd message left asking Regina to return call and speak with a nurse. Called and left a voicemail for Regina TRAINING MANAGER with Palliative Care to call back and ask for a nurse to receive the providers message. iMcah Paige RN Below noted. Reviewed records on Epic on lorazepam. Patient had followed at [facility] before according to a medlist entry 12/13/2023. We gave one short term refill when was in transition from [facility] to [facility]. She should get this med from psych provider as noted--would hope she can get an appointment soon so would be able to get anxiety treated whether staying on lorazepam or other med adjustments. Will Palliative Care be helping patient get established with a provider? Or do we need to help with that? Regina TRAINING MANAGER with Palliative Care called and is notified of providers results and instructions. She voices understanding and reports they had talked with the Pt about weaning her off the medication and she gets very upset. She reports the Pt was worse off 12 months ago and is doing much better and is no longer a Palliative care candidate. She said they typically wean the Pts off the medications or see if Psych or Pts PCP would want to take over. She said while she was in the assisted living they had asked the nurses to watch the Pt take her medications, but they said it was the Pts right not to have them watch, so she states they tried to avoid that. She said they will wean her off and let the Pt know to try and get in with [facility] or [facility]. She said she just wanted to let the providers office know that the Pt may be upset and try to call in about the medication. Micah Paige RN Called and left a voicemail for Regina TRAINING MANAGER with Palliative Care to call back and ask for a nurse to receive the providers message. Micah Paige RN With that history, I would not prescribe the lorazepam 1 mg TID routinely for someone who has history of possibly diverting medication. Filed the consult order but not sure whether patient would come plus not sure we have anyone in [facility] who would see her to manage lorazepam if indicated. Would palliative care taper the RX or change it so not being given TID given question of diversion and not sure when can be seen by psych to take over management of med? Have they checked urine tox screen at Assisted Living? Regina with Palliative Care calls to notify provider that she will no longer be seeing patient under Palliative Care as patient's condition has improved and she no longer falls under their guidelines. Regina is asking if provider will prescribe lorazepam 1 mg three times daily for patient or refer to psych. Regina wants provider to be aware that the nursing staff at the AL do not feel that patient is even taking the medication as prescribed. She refuses to swallow the pills in front of staff and if the pill accidentally breaks patient demands that they give her another pill that is whole. Regina reports that nursing staff believes patient is pocketing the pills and giving them to her son when he comes to visit. Pended referral to psych. Needs diagnosis. Call back to notify Cadis of provider response is [phone]. Rula Hernandez RN documented in this encounter [facility] 01-21-2025 Telephone encounter Note Called and left a voicemail for Regina TRAINING MANAGER with Palliative Care to call back and ask for a nurse to receive the providers message. Micah Paige RN [facility] 01-20-2025 Telephone encounter Note Below noted. Reviewed records on Epic on lorazepam. Patient had followed at [facility] before according to a medlist entry 12/13/2023. We gave one short term refill when was in transition from [facility] to [facility]. She should get this med from psych provider as noted--would hope she can get an appointment soon so would be able to get anxiety treated whether staying on lorazepam or other med adjustments. Will Palliative Care be helping patient get established with a provider? Or do we need to help with that? T [facility] 01-20-2025 Note HNO ID: [id number] Author: SCOT YORK MA Service: ? Author Type: Grades 1 Thru 6 Visiting Teacher Type: Progress Notes Filed: 01/20/2025 15:12 Note Text: POPULATION HEALTH NAVIGATION OUTREACH Action/FYI Gaps due: AWV Mammo KED DIABETIC RETINAL EXAM HCCs, no med adherence. Spoke to daughter, hernia surgery upcoming, keeping schedule clear. To send mcm. Updated appt notes. Reason for Outreach Care Gap/HCC or Scheduling Wellness Visits Care Gaps due: Medicare Annual Wellness Visit Breast Cancer Screening Diabetic Eye Exam KED Patient Contacted: Spoke to patient/parent/or legal guardian Patient identified by name and : No Navigation Signature: Scot York MA January 20, 2025 3:08 PM [facility] 01-20-2025 History of Presen t illness Narrative POPULATION HEALTH NAVIGATION OUTREACH Action/FYI Gaps due: AWV Mammo KED DIABETIC RETINAL EXAM HCCs, no med adherence. Spoke to daughter, hernia surgery upcoming, keeping schedule clear. To send mcm. Updated appt notes. Reason for Outreach Care Gap/HCC or Scheduling Wellness Visits Care Gaps due: Medicare Annual Wellness Visit Breast Cancer Screening Diabetic Eye Exam KED Patient Contacted: Spoke to patient/parent/or legal guardian Patient identified by name and : No Navigation Signature: Scot York MA January 20, 2025 3:08 PM documented in this encounter [facility] 01-20-2025 Telephone encounter Note Regina TRAINING MANAGER with Palliative Care called and is notified of providers results and instructions. She voices understanding and reports they had talked with the Pt about weaning her off the medication and she gets very upset. She reports the Pt was worse off 12 months ago and is doing much better and is no longer a Palliative care candidate. She said they typically wean the Pts off the medications or see if Psych or Pts PCP would want to take over. She said while she was in the assisted living they had asked the nurses to watch the Pt take her medications, but they said it was the Pts right not to have them watch, so she states they tried to avoid that. She said they will wean her off and let the Pt know to try and get in with [facility] or [facility]. She said she just wanted to let the providers office know that the Pt may be upset and try to call in about the medication. Micah Paige RN [facility] 01-20-2025 Note HNO ID: [id number] Author: LO PORTER LPCC Service: ? Author Type: Counselor Type: Progress Notes Filed: 01/20/2025 10:15 Note Text: Behavioral Health Social Work Progress Note [facility] PCP Reason for referral: Resources Behavioral Health Resources: Psychiatry med management [facility] encounter type: MyChart Message Attempts to Outreach: 1 attempt Referral made: Psychiatry - External Psychiatry-External referral type: Medication Management Reason for external referral: Patient seeking half-way support, Patient choice Final Disposition: Resources given Patient Discharged?: No Patient reported that caregiver was able to meet their needs today?: N/A therapist sent patient DataArthart message with a list of providers for psychiatric care. Will follow up in 1 week to determine if she needs additional resources. JOSE Gipson-S January 20, 2025 [facility] 01-20-2025 History of Presen t illness Narrative Behavioral Health Social Work Progress Note [facility]: PCP Reason for referral: Resources Behavioral Health Resources: Psychiatry med management [facility] encounter type: MyChart Message Attempts to Outreach: 1 attempt Referral made: Psychiatry - External Psychiatry-External referral type: Medication Management Reason for external referral: Patient seeking termite renewal inspector support, Patient choice Final Disposition: Resources given Patient Discharged?: No Patient reported that caregiver was able to meet their needs today?: N/A therapist sent patient HipSwapt message with a list of providers for psychiatric care. Will follow up in 1 week to determine if she needs additional resources. JOSE Gipson-S January 20, 2025 documented in this encounter [facility] 01-20-2025 Note Patient Outreach (NE WILBERAV) MARCIA MASCORRO ([id number]) 1955 F T Date Time Provider Department 01/20/25 SCOT YORK During your visit today, we recorded the following information about you: Scot York MA 01/20/2025 3:12 PM Signed POPULATION HEALTH NAVIGATION OUTREACH Action/FYI Gaps due: AWV Mammo KED DIABETIC RETINAL EXAM HCCs, no med adherence. Spoke to daughter, hernia surgery upcoming, keeping schedule clear. To send [facility]. Updated appt notes. Reason for Outreach Care Gap/HCC or Scheduling Wellness Visits Care Gaps due: Medicare Annual Wellness Visit Breast Cancer Screening Diabetic Eye Exam KED Patient Contacted: Spoke to patient/parent/or legal guardian Patient identified by name and : No Navigation Signature: Scot York MA January 20, 2025 3:08 PM Allergies As of Date: 01/20/2025 Noted Allergy Reaction CONTRAST DYE (IODINE) 12/20/2023 10 - Anaphylaxis Date Reviewed: 01/03/2025 Reviewed by: Acevedo, Lyndsey, 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.ALMOND ROASTER - Fully Assessed Reason for Visit: Population Health Navigation Outreach [3910] Cmt: Yang mckeonrejieren zimmer Prescriptions as of 01/24/2025 - DULoxetine (CYMBALTA) 40 mg cpDR Take 1 capsule by mouth once daily. - gabapentin (NEURONTIN) 400 mg capsule Take 1 capsule by mouth two times a day for 180 days. - albuterol-budesonide HFA (AIRSUPRA) 90-80 mcg/actuation inhaler Inhale 2 Puffs as instructed every 2 hours as needed for wheezing/shortness of breath. Do not take more than 12 inhalations in a 24 hour period. - Bisacodyl (DULCOLAX) 5 mg tab Take 1 tablet by mouth once daily as needed for constipation. - sucralfate (CARAFATE) 100 mg/mL suspension Take 10 mL by mouth four times daily. (take prior to meals and at bedtime) - promethazine (PHENERGAN) 25 mg tablet Take 1 tablet by mouth every 6 hours as needed. - spironolactone (ALDACTONE) 25 mg tablet Take 1 tablet by mouth once daily. - polyethylene glycol 3350 (MIRALAX) 17 gram/dose powder Take 17 g by mouth once daily. Dissolve dose in 4 - 8 ounces of liquid and take as directed. - omeprazole (PRILOSEC) 40 mg capsule Take 1 capsule by mouth once daily. - Nutritional Supplements (OPTIMENTAL) liqd Take 237 mL by mouth once daily. Okay with what insurance covers - Diaper,Brief, Adult,Disposable (DEPEND EASY FIT UNDERGARMENTS) Size Large pull up. Change depends once every 1-2 hrs. Dx incontinence (788.30) Prolapsed bladder (618.01) - atorvastatin (LIPITOR) 40 mg tablet Take 1 tablet by mouth daily at bedtime. - senna-docusate (SENNA PLUS) 8.6-50 mg per tablet Take 1 tablet by mouth every morning AND 1 tablet daily at bedtime. - tiotropium bromide (SPIRIVA RESPIMAT) 2.5 mcg/actuation inhaler Inhale 2 Puffs as instructed once daily. Inhale two puffs once daily. - sodium phosphate-sodium bisphosphate (FLEET) enema 133 mL by RECTAL route as needed for constipation. - ondansetron (ZOFRAN) 4 mg tablet Take 1 tablet by mouth every 8 hours as needed for nausea/vomiting. - magnesium hydroxide (MILK OF MAGNESIA) 400 mg/5 mL suspension Take 30 mL by mouth once daily as needed for constipation. - lisinopril (ZESTRIL) 5 mg tablet Take 1 tablet by mouth once daily. - furosemide (LASIX) 20 mg tablet Take 1 tablet by mouth two times a day. - clopidogrel (PLAVIX) 75 mg tablet Take 1 tablet by mouth once daily. - Cholecalciferol, Vitamin D3, 125 mcg (5,000 unit) cap Take 1 capsule by mouth once daily. - carvedilol (COREG) 6.25 mg tablet Take 1 tablet by mouth two times a day with meals. - melatonin 10 mg tab Take 1 tablet by mouth at bedtime as needed for insomnia. - oxyCODONE myristate (XTAMPZA ER) 27 mg CSpT Take 1 capsule by mouth two times a day. - acetaminophen (TYLENOL) 325 mg tablet Take 650 mg by mouth every 4 hours as needed. - aluminum-magnesium hydroxide-simethicone (MAALOX,MYLANTA,MAG-AL PLUS) 200-200-20 mg/5 mL suspension Take 30 mL by mouth as needed. Problem List As Of Date 01/20/2025 Noted Resolved Essential hypertension, benign [I10] Lumbago [M54.50] 12/30/2005 Symptomatic menopausal or female climacteric st*12/30/2005 Anxiety [F41.9] Depression [F32.A] GERD (gastroesophageal reflux disease) [K21.9] Chronic pain [G89.29] COPD with exacerbation (HCC) [J44.1] 12/07/2023 Routine gynecological examination [Z01.419] 06/05/2014 09/23/2022 Well adult exam [Z00.00] 06/05/2014 09/23/2022 Stress incontinence, female [N39.3] 07/07/2014 Mixed hyperlipidemia [E78.2] 07/10/2014 Bladder prolapse, female, acquired [N81.10] 10/04/2014 Diverticulosis [K57.90] 03/20/2015 Smoker [F17.200] 12/28/2015 Epigastric pain [R10.13] 04/16/2016 04/16/2016 Colon cancer screening [Z12.11] 04/16/2016 04/16/2016 Retana's esophagus [K22.70] 08/21/2016 RUQ pain [R10.11] 08/21/2016 12/07/2023 Visual disturbances [H53.9] 08/21/2016 Near syncope [R55] (more content not included)... [facility] 01-19-2025 Telephone encounter Note Called and left a voicemail for Regina TRAINING MANAGER with Palliative Care to call back and ask for a nurse to receive the providers message. Micah Paige, RN [facility] 01-19-2025 Telephone encounter Note With that history, I would not prescribe the lorazepam 1 mg TID routinely for someone who has history of possibly diverting medication. Filed the consult order but not sure whether patient would come plus not sure we have anyone in [facility] who would see her to manage lorazepam if indicated. Would palliative care taper the RX or change it so not being given TID given question of diversion and not sure when can be seen by psych to take over management of med? Have they checked urine tox screen at Assisted Living? [facility] 01-18-2025 Telephone encounter Note [facility] SPECIALTY CARE COORDINATION TELEPHONE ENCOUNTER Chief complaint & duration symptomatic HH. Pt was referred to Dr Mcduffie, but is feeling very sick.. sooner opening with Dr Chaudhary next week. Pt agreed. Nursing assessment (subjective/objective) . Pt with moderate to large HH and causing her several symptom such as abd pain, nausea and unable to eat Pt was seen last year for the same reason but does not remember Complex medical history Has not had recent testing GI is Dr Martinez who performed her last endoscopy will contact that office. CT 03/2024 was done and showed large HH Recommendation: Request sent to scheduling for an appt with Dr Chaudhary [facility] 01-18-2025 Miscellaneous Notes [facility] SPECIALTY CARE COORDINATION TELEPHONE ENCOUNTER Chief complaint & duration symptomatic HH. Pt was referred to Dr Mcduffie, but is feeling very sick.. sooner opening with Dr Chaudhary next week. Pt agreed. Nursing assessment (subjective/objective) . Pt with moderate to large HH and causing her several symptom such as abd pain, nausea and unable to eat Pt was seen last year for the same reason but does not remember Complex medical history Has not had recent testing GI is Dr Martinez who performed her last endoscopy will contact that office. CT 03/2024 was done and showed large HH Recommendation: Request sent to scheduling for an appt with Dr Chaudhary documented in this encounter [facility] 01-18-2025 Telephone encounter Note [facility] SPECIALTY CARE COORDINATION TELEPHONE ENCOUNTER Pt very sickly and high risk pt referred to Dr Mcduffie for a HH repair by local GI Dr Tejada. Unable to reach pt but large HH seen on a CT scan from 03/2024. Will wait for pt or family to return call to obtain symptoms and medical history. LVM and contact info. [facility] 01-18-2025 Miscellaneous Notes [facility] SPECIALTY CARE COORDINATION TELEPHONE ENCOUNTER Pt very sickly and high risk pt referred to Dr Mcduffie for a HH repair by local GI Dr Tejada. Unable to reach pt but large HH seen on a CT scan from 03/2024. Will wait for pt or family to return call to obtain symptoms and medical history. LVM and contact info. documented in this encounter [facility] 01-18-2025 Telephone encounter Note [phone] Chloe called from the facility where the patient resides. Chloe is trying to get patient in for a hiatal hernia referral from Dr. Tejada under sctive request. Penny [facility] 01-18-2025 Miscellaneous Notes [phone] Chloe called from the facility where the patient resides. Chloe is trying to get patient in for a hiatal hernia referral from Dr. Tejada under sctive request. Penny documented in this encounter [facility] 01-17-2025 Telephone encounter Note Daughter contacted to see if we could get patient rescheduled for a hospital f/u but she states that she is not doing very well right now and that Dr. Malik is trying to get her worked in so doesn't want to schedule anything until that has been scheduled. [facility] 01-17-2025 Miscellaneous Notes Daughter contacted to see if we could get patient rescheduled for a hospital f/u but she states that she is not doing very well right now and that Dr. Malik is trying to get her worked in so doesn't want to schedule anything until that has been scheduled. documented in this encounter [facility] 01-12-2025 Telephone encounter Note Regina with Palliative Care calls to notify provider that she will no longer be seeing patient under Palliative Care as patient's condition has improved and she no longer falls under their guidelines. Regina is asking if provider will prescribe lorazepam 1 mg three times daily for patient or refer to psych. Regina wants provider to be aware that the nursing staff at the ID do not feel that patient is even taking the medication as prescribed. She refuses to swallow the pills in front of staff and if the pill accidentally breaks patient demands that they give her another pill that is whole. Regina reports that nursing staff believes patient is pocketing the pills and giving them to her son when he comes to visit. Pended referral to psych. Needs diagnosis. Call back to notify Cadis of provider response is [phone]. Rula Hernandez RN [facility] 01-12-2025 Telephone encounter Note Spoke with [facility] and they stated that form is just her annual update for the chart. They just need last office note faxed with form. Patient has an appointment with Dr. Galvan on 01/16/25 and would prefer this office note but if patient no shows can send Lyndsey LOCKWOOD last office note. Form is at Dr Galvan nurse desk [facility] 01-12-2025 Miscellaneous Notes Spoke with [facility] and they stated that form is just her annual update for the chart. They just need last office note faxed with form. Patient has an appointment with Dr. Galvan on 01/16/25 and would prefer this office note but if patient no shows can send Lyndsey LOCKWOOD last office note. Form is at Dr Galvan nurse desk I have a form from [facility] form on my desk. Is she currently continuing to reside there? Do they need the last office note? Did not discuss at her recent visit, not sure why I have the form. documented in this encounter [facility] 01-12-2025 Telephone encounter Note Left message for patient's daughter, Marleny, to call back to PCP office to schedule consult. When she calls, please schedule surgical consult for hiatal hernia and schedule with EITHER Dr. Mcduffie or Dr. Parry per results note. [facility] 01-12-2025 Miscellaneous Notes Left message for patient's daughter, Marleny, to call back to PCP office to schedule consult. When she calls, please schedule surgical consult for hiatal hernia and schedule with EITHER Dr. Mcduffie or Dr. Parry per results note. Culture shows normal yasmani. Needs appt with Dr. Mcduffie scheduled. documented in this encounter [facility] 01-11-2025 Note Addended by: KIM KENNEDY on: 01/11/2025 02:59 PM Modules accepted: Orders [facility] 01-11-2025 Miscellaneous Notes Addended by: KIM KENNEDY on: 01/11/2025 02:59 PM Modules accepted: Orders documented in this encounter [facility] 01-11-2025 Note HNO ID: [id number] Author: KIM KENNEDY MA Service: ? Author Type: Grades 1 Thru 6 Visiting Teacher Type: Progress Notes Filed: 01/11/2025 14:58 Note Text: POPULATION HEALTH NAVIGATION OUTREACH Action/FYI Navigation to schedule a sooner 01/10/2025 [facility] PCP follow-up appointment. Due for: ED follow up Mammogram Dilated Retinal Exam Urine Albumin Spoke with patient's daughter; scheduled appointment Declined mammogram Will get eye exam Pended lab due; please add any additional necessary Reason for Outreach Community Monitoring/Network Navigator Pools AND Phone Line: CM Pool Care Gaps due: Follow-up Appointment Breast Cancer Screening Diabetic Eye Exam KED Patient Contacted: Spoke to patient/parent/or legal guardian Patient identified by name and : Yes Community Monitoring/Network Navigator Pools AND Phone Line actions taken: Patient scheduled / pended orders: ER Follow-up KED 01/16/2025 in [facility] with GABRIEL GALVAN - ED follow up 01/25/2025 in [facility] with MARCELO BUSH - Retana's esophagus without dysplasia [K22.70] 02/09/2025 in [facility] with [facility] - Chronic obstructive pulmonary disease, unspecified COPD type (HCC) [J44.9], Hypoxia [R09.02] 02/09/2025 in [facility] with [facility] - Chronic obstructive pulmonary disease, unspecified COPD type (HCC) [J44.9], Hypoxia [R09.02] 02/09/2025 [facility] with PEYTON TORRES - Chronic obstructive pulmonary disease, unspecified COPD type (HCC) [J44.9], Hypoxia [R09.02] 04/17/2025 in [facility] with GABRIEL GALVAN - 3 month follow up, HM: AWV, Mammo, Eye exam, KED, HCC Gap Closure Navigation Signature: Kim Kennedy MA January 11, 2025 2:46 PM [facility] 01-11-2025 History of Presen t illness Narrative POPULATION HEALTH NAVIGATION OUTREACH Action/FYI Navigation to schedule a sooner 01/10/2025 [facility] PCP follow-up appointment. Due for: ED follow up Mammogram Dilated Retinal Exam Urine Albumin Spoke with patient's daughter; scheduled appointment Declined mammogram Will get eye exam Pended lab due; please add any additional necessary Reason for Outreach Community Monitoring/Network Navigator Pools & Phone Line: CM Pool Care Gaps due: Follow-up Appointment Breast Cancer Screening Diabetic Eye Exam KED Patient Contacted: Spoke to patient/parent/or legal guardian Patient identified by name and : Yes Community Monitoring/Network Navigator Pools & Phone Line actions taken: Patient scheduled / pended orders: ER Follow-up KED 01/16/2025 in [facility] with GABRIEL GALVAN - ED follow up 01/25/2025 in [facility] with RACHELLE MARCELO - Retana's esophagus without dysplasia [K22.70] 02/09/2025 in [facility] with [facility] - Chronic obstructive pulmonary disease, unspecified COPD type (HCC) [J44.9], Hypoxia [R09.02] 02/09/2025 in [facility] with [facility] - Chronic obstructive pulmonary disease, unspecified COPD type (HCC) [J44.9], Hypoxia [R09.02] 02/09/2025 in [facility] with PEYTON TORRES - Chronic obstructive pulmonary disease, unspecified COPD type (HCC) [J44.9], Hypoxia [R09.02] 04/17/2025 in [facility] with GABRIEL GALVAN - 3 month follow up, HM: AWV, Mammo, Eye exam, KED, HCC Gap Closure Navigation Signature: Kim Kennedy MA January 11, 2025 2:46 PM Summary: Chart review per payor request AC MANUELA RN Patient identified by name and date of . Reason for review or outreach: Chart Review Manuela Priority Emergency Department Utilization REQUESTED ACTION/FYI: Please see ED Utilization summary below A follow-up appointment is noted to be scheduled on 04/17/2025. We are forwarding this patient to Network Navigation to schedule a sooner 01/10/2025 [facility] PCP follow-up appointment. Thank you! Utilization in past 12 months # Occurrences Date Last Occurrence Hospital Admission 1 09/28/2024 Hospital Observation 0 0 ED 6 01/10/2025 SNF / Acute Rehab / LTAC 1 05/2024 ED DIAGNOSES/REASON(S) FOR ED USE: 01/10/2025 [facility] for abdominal pain OTHER FINDINGS/SUMMARY: Labs, urine, previous work up per ED note on 12/31/[address] scan/chest xray. Morphine 4 mg given in ER once for pain. No imaging at this visit. Patient Attributed To: QAE Payer: Yang DIOR Action Taken: Referrals/Routed: Population Health Navigation: Appointment. Router to [facility]UN[facility] [[id number]] Contact made with patient: No, Chart review only. Signature: Blayne Moya RN documented in this encounter [facility] 01-11-2025 Note HNO ID: [id number] Author: BLAYNE MOYA RN Service: ? Author Type: Registered Nurse Type: Progress Notes Filed: 01/11/2025 14:40 Note Text: Summary: Chart review per payor request ACM MANUELA RN Patient identified by name and date of . Reason for review or outreach: Chart Review Manuela Priority Emergency Department Utilization REQUESTED ACTION/FYI: Please see ED Utilization summary below A follow-up appointment is noted to be scheduled on 04/17/2025. We are forwarding this patient to Network Navigation to schedule a sooner 01/10/2025 [place] [facility] PCP follow-up appointment. Thank you! Utilization in past 12 months # Occurrences Date Last Occurrence Hospital Admission 1 09/28/2024 Hospital Observation 0 0 ED 6 01/10/2025 SNF / Acute Rehab / LTAC 1 05/2024 ED DIAGNOSES/REASON(S) FOR ED USE: 01/10/2025 [place] [facility] for abdominal pain OTHER FINDINGS/SUMMARY: Labs, urine, previous work up per ED note on 12/31/[address] scan/chest xray. Morphine 4 mg given in ER once for pain. No imaging at this visit. Patient Attributed To: QAE Payer: Yang DIOR Action Taken: Referrals/Routed: Population Health Navigation: Appointment. Router to [facility] [[id number]] Contact made with patient: No, Chart review only. Signature: Blayne Moya RN [facility] 01-11-2025 Note Patient Outreach ([facility] MASCORROMARCIA ([id number]) 1955 F [facility] Date Time Provider Department [facility] your visit today, we recorded the following information about you: Blayne Moya RN 01/11/2025 2:40 PM Signed ACM MANUELA RN Patient identified by name and date of . Reason for review or outreach: Chart Review Manuela Priority Emergency Department Utilization REQUESTED ACTION/FYI: Please see ED Utilization summary below A follow-up appointment is noted to be scheduled on 04/17/2025. We are forwarding this patient to Network Navigation to schedule a sooner 01/10/2025 [place] [facility] PCP follow-up appointment. Thank you! Utilization in past 12 months # Occurrences Date Last Occurrence Hospital Admission 1 09/28/2024 Hospital Observation 0 0 ED 6 01/10/2025 SNF / Acute Rehab / LTAC 1 05/2024 ED DIAGNOSES/REASON(S) FOR ED USE: 01/10/2025 [place] [facility] for abdominal pain OTHER FINDINGS/SUMMARY: Labs, urine, previous work up per ED note on 12/31/[address] scan/chest xray. Morphine 4 mg given in ER once for pain. No imaging at this visit. Patient Attributed To: QAE Payer: Yang DIOR Action Taken: Referrals/Routed: Population Health Navigation: Appointment. Router to [facility] [[id number]] Contact made with patient: No, Chart review only. Signature: WENDY Leonardo Amy, MA 01/11/2025 2:58 PM Signed POPULATION HEALTH NAVIGATION OUTREACH Action/FYI Navigation to schedule a sooner 01/10/2025 [facility] PCP follow-up appointment. Due for: ED follow up Mammogram Dilated Retinal Exam Urine Albumin Spoke with patient's daughter; scheduled appointment Declined mammogram Will get eye exam Pended lab due; please add any additional necessary Reason for Outreach Community Monitoring/Network Navigator Pools AND Phone Line: CM Pool Care Gaps due: Follow-up Appointment Breast Cancer Screening Diabetic Eye Exam KED Patient Contacted: Spoke to patient/parent/or legal guardian Patient identified by name and : Yes Community Monitoring/Network Navigator Pools AND Phone Line actions taken: Patient scheduled / pended orders: ER Follow-up KED 01/16/2025 in [facility] with GABRIEL GALVAN - ED follow up 01/25/2025 in [facility] with MARCELO BUSH - Retana's esophagus without dysplasia [K22.70] 02/09/2025 [facility] - Chronic obstructive pulmonary disease, unspecified COPD type (HCC) [J44.9], Hypoxia [R09.02] 02/09/2025 [facility] - Chronic obstructive pulmonary disease, unspecified COPD type (HCC) [J44.9], Hypoxia [R09.02] 02/09/2025 in [facility] with PEYTON TORRES - Chronic obstructive pulmonary disease, unspecified COPD type (HCC) [J44.9], Hypoxia [R09.02] 04/17/2025 in [facility] with GABRIEL GALVAN - 3 month follow up, HM: AWV, Mammo, Eye exam, KED, HCC Gap Closure Navigation Signature: Kim Kennedy MA January 11, 2025 2:46 PM Kim Kennedy MA 01/11/2025 2:59 PM Signed Addended by: KIM KENNEDY on: 01/11/2025 02:59 PM Modules accepted: Orders Allergies As of Date: 01/11/2025 Noted Allergy Reaction CONTRAST DYE (IODINE) 12/20/2023 10 - Anaphylaxis Date Reviewed: 01/03/2025 Reviewed by: Lyndsey Acevedo APRN.ALMOND ROASTER - Fully Assessed Reason for Visit: ACM MANUELA RN [[id number]] Cmt: Chart review per payor request Primary Visit Diagnosis:Type 2 diabetes mellitus with other specified complication, without long-term current use of insulin (HCC) [E11.69] Prescriptions as of 01/23/2025 - DULoxetine (CYMBALTA) 40 mg cpDR Take 1 capsule by mouth once daily. - gabapentin (NEURONTIN) 400 mg capsule Take 1 capsule by mouth two times a day for 180 days. - albuterol-budesonide HFA (AIRSUPRA) 90-80 mcg/actuation inhaler Inhale 2 Puffs as instructed every 2 hours as needed for wheezing/shortness of breath. Do not take more than 12 inhalations in a 24 hour period. - Bisacodyl (DULCOLAX) 5 mg tab Take 1 tablet by mouth once daily as needed for constipation. - sucralfate (CARAFATE) 100 mg/mL suspension Take 10 mL by mouth four times daily. (take prior to meals and at bedtime) - promethazine (PHENERGAN) 25 mg tablet Take 1 tablet by mouth every 6 hours as needed. - spironolactone (ALDACTONE) 25 mg tablet Take 1 tablet by mouth once daily. - polyethylene glycol 3350 (MIRALAX) 17 gram/dose powder Take 17 g by mouth once daily. Dissolve dose in 4 - 8 ounces of liquid and take as directed. - omeprazole (PRILOSEC) 40 mg capsule Take 1 capsule by mouth once daily. - Nutritional Supplements (OPTIMENTAL) liqd Take 237 mL by mouth once daily. Okay with what insurance covers - Diaper,Brief, Adult,Disposable (DEPEND EASY FIT UNDERGARMENTS) Size Large pull up. Change depends once every 1-2 hrs. Dx incontinence (788.30) Prolapsed bladde (more content not included)... [facility] 01-10-2025 Discharge summary [facility] 01-10-2025 Telephone encount er Note I have a form from [facility] form on my desk. Is she currently continuing to reside there? Do they need the last office note? Did not discuss at her recent visit, not sure why I have the form. [facility] 01-10-2025 Discharge summary Note Date/Time January 10, 2025 6:23pm [facility] Medical Records Department [address] [place] [address] Emergency Department Summary 01/10/25 MR#: [id number] Acct: [id number] Name: MARCIA MASCORRO Rep #:[id number] : [id number] 69 From: Javon Reyes MD PCP: Dr. Gabriel Galvan MD Status:RE G ER Location: ED HPI HPI - GI History of Present Illness Chief Complaint: Abd Pain Informant: patient Abdominal Pain/Flank Pain Onset: Month(s) Context: Gradual Onset Timing: Continuous Quality: Aching Location: Left Flank Current Severity: Mild Maximum Severity: Moderate Worsened by: Nothing Relieved by: Nothing Nausea/Vomiting/Emesis GI Symptom: Negative for Nausea or Vomiting Diarrhea/Melena/Hematochezia GI Symptom: Negative for Diarrhea, Melena or Hematochezia Associated Symptoms Associated Symptoms: Negative for Dysuria, Frequency, Hematuria or Urgency Narrative Narrative: 61-year-old female history of chronic pain, CHF, TIA, COPD on O2 at home, hiatalhernia. Complaining of about chronic left flank pain. She has had it for months or longer. She was just seen in the emergency department at the end of last month had an extensive workup including a CAT scan without any specific cause for her pain. She is on chronic pain medication at home and uses [place]. She denies any change in the pain. She denies any nausea, vomiting or diarrhea. She denies any dysuria or hematuria. She denies any fever. Nothing particularmakes the pain better or worse. Prior similar symptoms: Yes Recent Illness/Hospitalization: No PFSH PFSH Medical History Chronic pain Kidney disease Asthma Irregular heart beat Congestive heart failure (CHF) TIA (transient ischemic attack) Wears glasses Post-menopausal Arthritis History of renal disease High cholesterol DVT (deep venous thrombosis) Easy bruising Excessive bleeding Back pain Injury of back History of ulceration Difficulty chewing Gastric reflux Shortness of breath on exertion Hoarseness Chronic cough Leg cramps History of pain when walking History of edema History of echocardiogram History of stress test Cardiology follow-up encounter History of CHF (congestive heart failure) History of irregular heartbeat Chest pain Bullous emphysema COPD with asthma Esophagitis, unspecified without bleeding Unspecified combined 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 Other chronic pain Elevated troponin Sustained SVT Depression Osteoporosis Kidney stones Smoker Myocardial infarct History of non-ST elevation myocardial infarction (NSTEMI) (09/01/21) Essential hypertension Old anterior wall myocardial infarction Ischemic cardiomyopathy Opiate dependence Anxiety and depression TIA (transient ischemic attack) Obesity (BMI 30.0-34.9) EVELYN (obstructive sleep apnea) Personal history of transient ischemic attack (TIA), and cerebral infarction without residual deficits COPD (chronic obstructive pulmonary disease) Calculus of left kidney GERD (gastroesophageal reflux disease) Hyperlipidemia Atherosclerotic heart disease of [place] coronary artery without angina pectoris Tobacco abuse Home Medications ?Medication ?Instructions ?Recorded ?Last Taken ?Type inhalational spacing device #1 ea 02/17/23 Unknown Rx (Aerochamber MV spacer) tiotropium bromide 2.5 2 puff inhalation DAILY #4 g sandra 02/17/23 09/27/24 Rx mcg/actuation mist for inhalation (Spiriva Respimat) lorazepam 1 mg tablet (Ativan) 1 mg PO TID PRN anxiety 07/16/23 09/27/24 History gabapentin 400 mg capsule 400 mg PO Q6H 07/29/2309/27 History nitroglycerin 0.4 mg sublingual 0.4 mg buccal Q5M PRN chest pain 07/29/23 Unknown History tablet sucralfate 1 gram tablet 1 g PO Q8H 07/29/23 09/27/24 History melatonin 3 mg capsule 3 mg PO QHS 09/05/23 5 History albuterol 90 mcg-budesonide 80 1 - 2 inh inhalation BI D PRN 09/28/24 09/27/24 History mcg/actuation HFA aerosol inhaler shortness of breath (Airsupra) atorvastatin 40 mg tablet 40 mg PO QHS 09/28/24 History bisacodyl 5 mg tablet,delayed 5 mg PO DAILY PRN consti pation 09/28/24 Unknown History release cholecalciferol (vitamin D3) 125 125 mcg PO DAILY 09/0809/27/24 History mcg (5,000 unit) capsule hydrocodone-acetaminophen 5-325mg 1 tab PO Q4H 5 09/27/24 History 5mg-325mg lisinopril 5 mg tablet 5 mg PO DAILY 09/28/2409/27 History oxycodone myristate 18 mg capsule 18 mg PO BID 5 09/27/24 History sprinkle extended release 12hr(DON'T CRUSH) (Xtampza ER) polyethylene glycol 3350 17 17 g PO BID 09/28/2409/27 History gram/dose oral powder promethazine 25 mg tablet 25 mg PO PRN PRN nausea and 09/28/24 Unknown History vomiting budesonide-formoterol HFA 160 1 puff inhalation BID #1 0.2 grams 09/30/24 Unknown Rx mcg-4.5 mcg/actuation aerosol inhaler (Symbicort) carvedilol 25 mg tablet 25 mg PO BID #120 tabs 10/04 Unknown Rx furosemide 40 mg tablet 40 mg PO QDAY #90 tabs 10/04 Unknown Rx Allergy/AdvReac Type Severity Reaction Status Date / Time Iodinated Contrast Media Allergy SOB Verified 01/10/25 16:02 (iodine contrast) Family History Mother Hypertension CAD (coronary artery disease) CVA (cerebral vascular accident) Myocardial infarction Grandmother Myocardial infarction Surgical History History of cholecystectomy Hx of esophagogastroduodenoscopy History of cardiac catheterization History of hysterectomy History of left heart catheterization (01/20/22) History of total hysterectomy Hx of appendectomy Social History household members: none Smoking Status: Current some day smoker tobacco type: cigarettes alcohol intake: never substance use type: does not use ROS ROS ED ROS Narrative Chronic left flank pain. Constitutional Constitutional ED: Denies chills or fever(s) ENT ENT ED: Denies ear pain Cardiovascular Cardiovascular: Denies chest pain Respiratory/Chest Respiratory/Chest: Denies cough or dyspnea Gastrointestinal Gastrointestinal: Reports abdominal pain; Denies constipation, diarrhea, melena,nausea or vomiting Genitourinary Genitourinary ED: Denies dysuria or hematuria Musculoskeletal Musculoskeletal: Denies arthralgias Integumentary Denies abscess Neurologic Neurologic: Denies headache(s) Psychiatric Psychiatric: Reports anxiety Endocrine Endocrinology: Denies polydipsia or polyphagia Hematologic/Lymphatic Hematologic/Lymphatic: Denies easy bleeding Allergic/Immunologic Allergic/Immunologic ED: Denies mouth swelling, tongue swelling or urticaria EXAM Physical Exam Narrative Exam Narrative: Well-appearing 69-year-old female. Sitting upright in bed. Vital signs stable afebrile. Pulse ox on 3 L 90% no hypoxia. No distress. H EENT exam pupils round react to light. Moist mucous very benign exam. Membranes. Neck nontender no JVD. No lymphadenopathy. Lungs clear to auscultation bilaterally. Heart regular rate and rhythm rate about 70 no murmur. Chest wall ribs nontender. Back nontender. Abdomen soft, nontender, nondistended normal bowel sounds without peritoneal signs. There is no hernia or mass. No distention or obstruction. Skin on her abdomen and back is unremarkable. No rashes. Moving all 4 extremities. Nontender no edema. Normal chimney sweeper strength. Normal dorsi plantarflexion. She is awake and alert. She is answering questions and following commands. She seems emotionally upset and anxious but she is in no physical distress. Const Vital Signs: 01/10/25 15:15 01/10/25 16:36 01/10/25 17:24 Temperature 98.0 F 98.0 F Temperature Source Oral Temporal Pulse Rate 70 62 66 Respiratory Rate 17 17 16 Blood Pressure 160/97 H 110/65 102/69 Blood Pressure Mean 118 80 80 Pulse Ox 92 94 94 Oxygen Delivery Method Nasal Cannula Room Air Nasal Cannula Oxygen Flow Rate (L/min) 3 3 3 Positive well nourished and well developed; Negative for cachectic, contracturesor unkempt General Appearance ED: well developed and NAD; Negative for unkempt, cachectic, contractures or pallor Nutritional Appearance: Negative for cachectic HEENT Reports moist mucous membranes normocephalic and atraumatic Eyes PERRL and EOMs intact bilaterally Neck no lymphadenopathy, supple and no JVD Resp normal respiratory effort and clear to auscultation bilaterally Cardio regular rate, regular rhythm, S1 normal heart sound, S2 normal heart sound and no murmurs GI non-tender, non-distended and no masses Inspection: Negative for abdominal distention Auscultation: normoactive bowel sounds Palpation: soft; Negative for tender, guarding, hernia, mass or rebound tenderness present Back/Spine no CVA tenderness General Back: Negative for CVA tenderness Cervical Spine: Negative for cervical spine tenderness Thoracic Spine / Upper Back: Negative for thoracic spinal tenderness Lumbar Spine / Lower Back: Negative for lumbar spinal tenderness Extremity full ROM General Extremety ED: Negative for edema or tenderness General Extremity: Negative for edema Neuro CN's II-XII intact bilaterally and moves all extremities Sensorium / Orientation: alert, oriented to person, oriented to place and oriented to time; Negative for orientation impaired, confused or lethargic Motor Exam: strength 5/5 throughout Psych mental status grossly normal and thought process normal Appearance: Negative for unkempt Mood & Affect: depressed and anxious Skin no wounds General Skin Exam: Negative for jaundice or pallor Lesions: no lesions Rashes: no rashes Trauma: Negative for abrasion Nails: Negative for discolored MDM MDM MDM Narrative Medical decision making narrative: 69-year-old female history of chronic pain. Presents with chronic left flank pain. Exam is completely benign. Had a workup about 11 days ago that was negative including a CAT scan, labs and urinalysis. She will be given 4 mg of morphine for pain. I will get screening labs I do not think she needs any imaging. If the workup is negative she will be discharged home. She already has [place] at home for pain. Repeat exam at 6:22 PM. Patient want to be discharged home. She was initially given pain medication. Explained to her chronic pain we would not keep treatingwith narcotics plus she has pain medication at home. To follow-up with her primary care physician and/or her pain management doctor. Her abdomen again is benign at this time. History & Record Review Discussion w/independent historian: Patient Additional record(s) reviewed:: Prior inpatient record, Prior outpatient record,Prior ED visit and Prior labs Lab Data Attestation: I reviewed the patient's lab results. Lab results narrative: CBC unremarkable. White count of 5. H&H 13 and 41. Platelets 188. Electrolytes show gap 8. Normal BUN and creatinine 11 and 0.8. Glucose 94. Liver enzymes normal. UA normal. No white or red cells. No bacteria or nitrites. Labs are similar to prior and no significant changes. Labs: Laboratory Results - last 24 hr 01/10/25 01/10/25 15:31 16:14 WBC 5.7 RBC 4.26 Hgb 13.7 Hct 41.6 MCV 97.7 MCH 32.2 H MCHC 32.9 RDW Std Deviation 47.3 H RDW Coeff of Sariah 13.2 Plt Count 188 MPV 9.9 Immature Gran % (Auto) 0.200 Neut % (Auto) 52.1 Lymph % (Auto) 35.8 [place] % (Auto) 8.2 Eos % (Auto) 3.2 Baso % (Auto) 0.5 Absolute Neuts (auto) 3.0 Absolute Lymphs (auto) 2.04 Nucleated RBC % 0 Sodium 140 Potassium 4.2 Chloride 102 Carbon Dioxide 29.1 Anion Gap 8 BUN 11 Creatinine 0.80 Estim Creat Clear Calc 66.30 Est GFR (MDRD) Non-Af 80 BUN/Creatinine Ratio 13.3 Glucose 94 Calcium 9.5 Total Bilirubin 0.36 AST 15 ALT 6 Alkaline Phosphatase 100 Total Protein 6.6 Albumin 3.7 Globulin 2.9 Albumin/Globulin Ratio 1.3 Urine Color Yellow Urine Clarity Clear Urine pH 6.0 Ur Specific [place] 1.020 Urine Protein 30 H Urine Glucose (UA) Normal Urine Ketones Negative Urine Occult Blood Negative Urine Nitrite Negative Urine Bilirubin Negative Urine Urobilinogen 1 H Ur Leukocyte Esterase Negative Urine RBC 0 SEEN Urine WBC 0-5 SEEN Ur Squamous Epith Cells 0-5 SEEN Urine Bacteria 0 SEEN Urine Mucus 0 SEEN Discharge Plan Triage Chief Complaint: Abd Pain ED Provider: Javon Reyes Dx/Rx/DC Orders Clinical Impression: Acute flank pain, History of chronic back pain, History of COPD Instructions: Abdominal Pain Prescriptions: No Action Spiriva Respimat 2.5 mcg/actuation mist 2 puff inhalation DAILY Qty: 4 11RF (DME) Aerochamber MV Spacer See Rx Instructions .ROUTE .MEDSUPPLY Qty: 1 0RF Rx Instructions: As directed lorazepam [Ativan] 1 mg tablet 1 mg PO TID PRN (Reason: anxiety) furosemide 40 mg tablet 40 mg PO QDAY Qty: 90 3RF carvedilol 25 mg tablet 25 mg PO BID Qty: 120 3RF Rx Instructions: must administer with a meal/food melatonin 3 mg capsule 3 mg PO QHS gabapentin 400 mg capsule 400 mg PO Q6H nitroglycerin 0.4 mg tablet, sublingual 0.4 mg buccal Q5M PRN (Reason: chest pain) sucralfate 1 gram tablet 1 g PO Q8H promethazine 25 mg tablet 25 mg PO PRN PRN (Reason: nausea and vomiting) Xtampza ER 18 mg cap,sprinkl,ER12hr(DONT CRUSH) 18 mg PO BID Patient Comments: [NO ORIGINAL SIG] hydrocodone-acetaminophen 5-325 mg tablet 1 tab PO Q4H Airsupra 90-80 mcg/actuation HFA aerosol inhaler 1 - 2 inh INHALATION BID PRN (Reason: shortness of breath) Patient Comments: [NO ORIGINAL SIG] atorvastatin 40 mg tablet 40 mg PO QHS bisacodyl 5 mg tablet,delayed release (DR/EC) 5 mg PO DAILY PRN (Reason: constipation) Patient Comments: [NO ORIGINAL SIG] polyethylene glycol 3350 17 gram/dose powder 17 g PO BID cholecalciferol (vitamin D3) 125 mcg (5,000 unit) capsule 125 mcg PO DAILY lisinopril 5 mg tablet 5 mg PO DAILY budesonide-formoterol [Symbicort] 160-4.5 mcg/actuation HFA aerosol inhaler 1 puff inhalation BID Qty: 10.2 0RF Primary Care Provider: Gabriel Galvan Referrals: Gabriel Galvan MD [Primary Care Provider] - As Needed Activity Restrictions/Additional Instructions: All your blood work today looked good. Your urine was clean with no signs of infection or kidney stone. Follow-up with your doctor as needed. Use your pain medication that you use at home. Print Language: Ecuadorean Disposition Disposition: Home, Self Care What to do if you have Problems For any increased pain, shortness of breath, bleeding, nausea or vomiting, chestpain, or any unexpected problems, contact your Primary Care Provider. Call [facility] ([phone]) or report to the closest Emergency Room. Call 911 if necessary. 01/10/25 1823 <Electronically signed by Javon Reyes MD> Cosigner Signature (if applicable): CC: Dr. Gabriel Galvan MD ~ Signed [facility] Work Phone: [phone] 357-300005-02-2025 Progress note* Result Encounter Note - Lyndsey Acevedo APRN.ALMOND ROASTER - 01/06/2025 11:13 AM EDT Culture shows normal yasmani. Needs appt with Dr. Mcduffie scheduled. [facility]04-29-2025 Instructions* Patient Instructions* Lyndsey Acevedo APRN.CNS - 01/03/2025 2:08 PM EDT Medication Adjustments: - Reduce your gabapentin from three times a day to twice a day. - Increase your duloxetine dose from 30 mg to 40 mg daily for your neuropathy as we discussed. Testing: - Get a repeat urinalysis to recheck your kidney function. Referrals and Appointments: - A referral will be placed with gastroenterology (Dr. Martinez) to help address your esophageal issues. - Schedule an appointment with the Dr. Mcduffie [facility] doctor, as recommended by Dr. Tejada, for further evaluation of your hiatal hernia and related symptoms. - Keep your upcoming appointment with the lung doctor (Dr. Peyton Torres) for your breathing evaluation. - Call your heart doctor to schedule an echo before seeing the surgeon in [place]. Ongoing Care: - Continue taking your current medication for Retana s esophagus as prescribed. See either Dr. Martinez or other test cell technician for follow up of Retana's esophagus documented in [facility] NoteHNO ID: [id number] Author: LYNDSEY ACEVEDO APRN.CNS Service: ? Author Type: Nurse Specialist Type: Progress Notes Filed: 01/03/2025 14:51 Note Text: Subjective Patient ID: Marcia is a 69 year old female who presents for Hospital F/U. HPI She was seen at [facility] on December 20, 2024 for shortness of breath. She was also seen at [facility] on December 30 for abdominal pain. She was seen at [facility] 15 for shortness of breath. She presented with her family due to increasing shortness of breath 2 days prior to arrival. She has a history of C OPD and wears oxygen at home. She had increased oxygen from 2 to 3 L at home. Reports pulse oximeter's were in the 70-80 range when checking at home. Notes that she continues to smoke. Noted that she was seen by pain management Dr. Aguilar and due to the concern came to the ER for evaluation. Pulse oximeter was 95% on 2 L in the ER. She was treated with DuoNeb and Solu-Medrol in the ER. EKG completed and showed normal sinus rhythm with no ischemic changes. Negative troponins. Chest x-ray showed right base atelectasis versus early infiltrate. She was not treated with antibiotics. She was treated with albuterol for the next 7 days following discharge. Smoking cessation was recommended. She was seen for left upper quadrant abdominal pain on December 30, 2024. Lab work EKG and chest x-ray without concerning findings. Provide CT of the abdomen showed no acute findings. History of Retana's esophagus. Sees gastroenterology, EGD 2023. Noted that hernia surgery considered but she was advised she was too high of risk. This showed esophageal mucosal changes secondary to Retana's. Treated with radiofrequency ablation. Medium sized hiatal hernia noted. Gastric erosions noted with no stigmata of recent bleeding. Palliative medicine: sees once per month Pulmonology: No current, has not completed PFTs Gastroenterology: Dr. Martinez Pain management: Dr. Adriane Tejada recommended 04/2024 : Plan: I think, to refer her up to the [facility] to be seen by Dr. Mcduffie. I am not sure if he is going to order any extra test on her. But I informed her that he may. Given her symptomatology reasonably sure he is probably going to offer her some form of surgery. Retana's Esophagus: - Diagnosed with Retana's esophagus; last EGD performed in 2023. - Has not followed up with Dr. Martinez due to illness and relocation. - Experiences postprandial pain radiating to the back, described as turning into a ball. Hiatal Hernia: - Diagnosed with a hiatal hernia by Dr. Tejada. - Has not yet seen the recommended specialist at the [facility]. Renal Concerns: - Reports foamy urine and severe back pain, described as pulling down and floating sensations. - Has chronic back pain; current pain is described as different from previous episodes. - Recent ER visit noted abnormalities in lung function. Peripheral Neuropathy: - Currently taking gabapentin TID for neuropathy, but reports it causes body jumping. - Requests to switch to Lyrica (pregabalin) for neuropathy management. - Also taking duloxetine for neuropathy. Pulmonary Concerns: - Uses supplemental oxygen, initially prescribed at 2 L/min, now increased to 3 L/min. - Has not seen a powder room attendant yet. ROS Constitutional: (no entries) Head: (no entries) Eyes: (no entries) Ears/Nose/Mouth/Throat: (no entries) Neck: (no entries) Cardiovascular: (no entries) Respiratory: (no entries) Gastrointestinal: (+) vomiting, (+) abdominal pain Genitourinary: (+) foamy urine, (+) flank pain Musculoskeletal: (+) chronic back pain Skin: (+) easy bruising Neurological: (+) involuntary muscle movements Psychiatric: (no entries) Endocrine: (no entries) Hematologic/Lymphatic: (no entries) Objective BP 111/77 Pulse 77 Resp 16 Wt 82 kg (180 lb 12.4 oz) BMI 30.08 kg/m? Physical Exam Vitals and nursing note reviewed. Constitutional: Appearance: Normal appearance. HENT: Head: Normocephalic and atraumatic. Eyes: Conjunctiva/sclera: Conjunctivae normal. Neck: Thyroid: No thyromegaly. Vascular: Normal carotid pulses. No JVD. Cardiovascular: Rate and Rhythm: Normal rate and regular rhythm. Pulses: Carotid pulses are 2+ on the right side and 2+ on the left side. Heart sounds: Normal heart sounds. Pulmonary: Breath sounds: Wheezing (few scattered expiratory) present. Comments: O2 2LNC Abdominal: General: Bowel sounds are normal. Palpations: Abdomen is soft. Tenderness: There is abdominal tenderness (LUQ). Skin: General: Skin is warm and dry. Neurological: General: No focal deficit present. Mental Status: She is alert and oriented to person, place, and time. Latest Ref Rng 09/14/2024 Protein, Total 6.3 - 8.0 g/dL 7.3 Albumin 3.9 - 4.9 g/dL 4.2 Calcium 8.5 - 10.2 mg/dL 9.8 Bilirubin, Total 0.2 - (more content not included)...[facility] 01-03-2025 History of Present illness Narrative* Lyndsey Acevedo, 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.ALMOND ROASTER - 01/03/2025 1:26 PM EDT Subjective Patient ID: Marcia is a 69 year old female who presents for Hospital F/U. HPI She was seen at [facility] on December 20, 2024 for shortness of breath. She was also seen at [facility] on December 30 for abdominal pain. She was seen at [facility] 04-21 for shortness of breath. She presented with her family due to increasing shortness of breath 2 days prior to arrival. She has a history of C OPD and wears oxygen at home. She had increased oxygen from 2 to 3 L at home. Reports pulse oximeter's were inthe 70-80 range when checking at home. Notes that she continues to smoke. Noted that she was seen by pain management Dr. Aguilar and due to the concern came to the ER for evaluation. Pulse oximeter was 95% on 2 L in the ER. She was treated with DuoNeb and Solu-Medrol in the ER. EKG completed and showed normal sinus rhythm with no ischemic changes. Negative troponins. Chest x-ray showed right base atelectasis versus early infiltrate. She was not treated with antibiotics. She was treated withalbuterol for the next 7 days following discharge. Smoking cessation was recommended. She was seen for left upper quadrant abdominal pain on December 30, 2024. Lab work EKG and chest x-raywithout concerning findings. Provide CT of the abdomen showed no acute findings. History of Retana's esophagus. Sees gastroenterology, EGD 2023. Noted that hernia surgery considered but she was advised she was too high of risk. This showed esophageal mucosal changes secondary to Retana's. Treated with radiofrequency ablation. Medium sized hiatal hernia noted. Gastric erosions noted with no stigmata of recent bleeding. Palliative medicine: sees once per month Pulmonology: No current, has not completed PFTs Gastroenterology: Dr. Martinez Pain management: Dr. Adriane Tejada recommended 04/2024 : Plan: I think, to refer her up to the main campus to be seen by Dr. Mcduffie. I am not sure if he is going to order any extra test on her. But I informed her that he may. Given her symptomatology reasonably sure he is probably going to offer her some form of surgery. Retana's Esophagus: - Diagnosed with Retana's esophagus; last EGD performed in 2023. - Has not followed up with Dr. Martinez due to illness and relocation. - Experiences postprandial pain radiating to the back, described as turning into a ball. Hiatal Hernia: - Diagnosed with a hiatal hernia by Dr. Tejada. - Has not yet seen the recommended specialist at the main campus. Renal Concerns: - Reports foamy urine and severe back pain, described as pulling down and floating sensations. - Has chronic back pain; current pain is described as different from previous episodes. - Recent ER visit noted abnormalities in lung function. Peripheral Neuropathy: - Currently taking gabapentin TID for neuropathy, but reports it causes body jumping. - Requests to switch to Lyrica (pregabalin) for neuropathy management. - Also taking duloxetine for neuropathy. Pulmonary Concerns: - Uses supplemental oxygen, initially prescribed at 2 L/min, now increased to 3 L/min. - Has not seen a powder room attendant yet. ROS Constitutional: (no entries) Head: (no entries) Eyes: (no entries) Ears/Nose/Mouth/Throat: (no entries) Neck: (no entries) Cardiovascular: (no entries) Respiratory: (no entries) Gastrointestinal: (+) vomiting, (+) abdominal pain Genitourinary: (+) foamy urine, (+) flank pain Musculoskeletal: (+) chronic back pain Skin: (+) easy bruising Neurological: (+) involuntary muscle movements Psychiatric: (no entries) Endocrine: (no entries) Hematologic/Lymphatic: (no entries) Objective BP 111/77 Pulse 77 Resp 16 Wt 82 kg (180 lb 12.4 oz) BMI 30.08 kg/m Physical Exam Vitals and nursing note reviewed. Constitutional: Appearance: Normal appearance. HENT: Head: Normocephalic and atraumatic. Eyes: Conjunctiva/sclera: Conjunctivae normal. Neck: Thyroid: No thyromegaly. Vascular: Normal carotid pulses. No JVD. Cardiovascular: Rate and Rhythm: Normal rate and regular rhythm. Pulses: Carotid pulses are 2+ on the right side and 2+ on the left side. Heart sounds: Normal heart sounds. Pulmonary: Breath sounds: Wheezing (few scattered expiratory) present. Comments: O2 2LNC Abdominal: General: Bowel sounds are normal. Palpations: Abdomen is soft. Tenderness: There is abdominal tenderness (LUQ). Skin: General: Skin is warm and dry. Neurological: General: No focal deficit present. Mental Status: She is alert and oriented to person, place, and time. Latest Ref Rng 09/14/2024 Protein, Total 6.3 - 8.0 g/dL 7.3 Albumin 3.9 - 4.9 g/dL 4.2 Calcium 8.5 - 10.2 mg/dL 9.8 Bilirubin, Total 0.2 - 1.3 mg/dL 0.4 Alkaline Phosphatase 34 - 123 U/L 128 (H) AST 13 - 35 U/L 15 ALT 7 - 38 U/L 10 Glucose 74 - 99 mg/dL 94 BUN 7 - 21 mg/dL 13 Creatinine 0.58 - 0.96 mg/dL 0.91 Sodium 136 - 144 mmol/L 140 Potassium 3.7 - 5.1 mmol/L 4.1 Chloride 98 - 107 mmol/L 104 CO2 22 - 30 mmol/L 27 Anion Gap 8 - 15 mmol/L 9 eGFR >=60 mL/min/1.73m 69 WBC 3.70 - 11.00 k/uL 8.30 RBC 3.90 - 5.20 m/uL 4.31 Hemoglobin 11.5 - 15.5 g/dL 13.7 Hematocrit 36.0 - 46.0 % 42.6 MCV 80.0 - 100.0 fL 98.8 MCH 26.0 - 34.0 pg 31.8 MCHC 30.5 - 36.0 g/dL 32.2 RDW-CV 11.5 - 15.0 % 13.2 Platelet Count 150 - 400 k/uL 223 MPV 9.0 - 12.7 fL 10.2 Absolute nRBC <0.01 k/uL <0.01 Total Cholesterol, Nonfasting <200 mg/dL 219 (H) Triglycerides, Nonfasting <150 mg/dL 165 (H) HDL Cholesterol, Nonfasting >39 mg/dL 45 LDL Cholesterol Calculated, Nonfasting <100 mg/dL 141 (H) Non HDL Cholesterol, Nonfasting <130 mg/dL 174 (H) VLDL Cholesterol, Nonfasting <30 mg/dL 33 (H) Total Chol/HDL Ratio, Nonfasting <5.10 mg/dL 4.87 LDL/HDL Ratio, Nonfasting <2.54 mg/dL 3.13 (H) Hemoglobin A1C 4.3 - 5.6 % 5.4 Estimated Average Glucose mg/dL 108 Magnesium 1.7 - 2.3 mg/dL 2.0 Vitamin D 25 Hydroxy 31.0 - 80.0 ng/mL 33.1 1. Chronic obstructive pulmonary disease, unspecified COPD type (HCC) (J44.9) 2. Hypoxia (R09.02) - Referred to Dr. Torres, powder room attendant, for further evaluation and management. - is on supplemental oxygen, recently increased from 2 to 3 L/min. - Discussed the importance of consistent oxygen use. - Schedule pulmonary function tests. 3. Retana's esophagus without dysplasia (K22.70) - Follow-up with Dr. Martinez, test cell technician, or preferred gasteroenterologist is pending. - is on current medication regimen for Retana's esophagus; advised to continue. - Referral to a different test cell technician initiated to expedite care per her request 4. Left upper quadrant abdominal pain (R10.12) 5. Hiatal hernia (K44.9) - Pain likely related to known hiatal hernia. - Referral to a surgeon at the main campus for further evaluation and potential surgical intervention. - Advised to follow up with Dr. Tejada's recommended surgeon- Dr. Mcduffie. 6. Neuropathy (G62.9) - Current treatment with gabapentin 3 times daily causing adverse effects (body jump). - Initiated tapering of gabapentin to twice daily. - Increased duloxetine dosage to enhance neuropathic pain management. - Plan to transition to pregabalin (Lyrica) after gabapentin taper. 7. Foamy urine (R82.998) - Ordered urinalysis to evaluate for proteinuria or other abnormalities. - Discussed potential causes of foamy urine, including rapid urine stream. 8. Other chronic pain (G89.29) - Chronic back pain managed with injections by Dr. Forrest. - New onset of different back pain described as pulling and floating sensation; further evaluation needed. Lyndsey Acevedo APRN.CNS Medical Decision Making: Problems: Moderate: 2+ stable chronic illnesses Data: Unique source(s) for external note(s) reviewed: 1 Unique test result(s) reviewed: 3+ Risk: Moderate: Drug management Medical Decision Making Level: 4 - Moderate [facility] [facility] Medical Records Department [address] [place] [address] Emergency Department Summary 12/30/24 MR#: [id number] Acct: [id number] Name: MARCIA MASCORRO Rep #:[id number] : [id number] 69 From: Waqas Hart MD PCP: Dr. Gabriel Galvan MD Status:RE G ER Location: ED HPI HPI - GI History of Present Illness Chief Complaint: Abd Pain Narrative Narrative: 69-year-old female past medical history of COPD presents with left upper quadrant abdominal pain that she has had over the last month. She states that she was seen in the emergency department a few weeks to over a month ago. She was seen for different reason but states that she has had left upper quadrant abdominal pain. Sometimes is sharp and stabbing. She has history of Retana's esophagus as well. She denies any fever but states she has had chills, no exacerbating or alleviating factors. No dysuria or hematuria. No problems withbowel movements. She states that she has this pain that she has had for quite some time. [facility] Medical History Chronic pain Kidney disease Asthma Irregular heart beat Congestive heart failure (CHF) TIA (transient ischemic attack) Wears glasses Post-menopausal Arthritis History of renal disease High cholesterol DVT (deep venous thrombosis) Easy bruising Excessive bleeding Back pain Injury of back History of ulceration Difficulty chewing Gastric reflux Shortness of breath on exertion Hoarseness Chronic cough Leg cramps History of pain when walking History of edema History of echocardiogram History of stress test Cardiology follow-up encounter History of CHF (congestive heart failure) History of irregular heartbeat Chest pain Bullous emphysema COPD with asthma Esophagitis, unspecified without bleeding Unspecified combined 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 Other chronic pain Elevated troponin Sustained SVT Depression Osteoporosis Kidney stones Smoker Myocardial infarct History of non-ST elevation myocardial infarction (NSTEMI) (09/01/21) Essential hypertension Old anterior wall myocardial infarction Ischemic cardiomyopathy Opiate dependence Anxiety and depression TIA (transient ischemic attack) Obesity (BMI 30.0-34.9) EVELYN (obstructive sleep apnea) Personal history of transient ischemic attack (TIA), and cerebral infarction without residual deficits COPD (chronic obstructive pulmonary disease) Calculus of left kidney GERD (gastroesophageal reflux disease) Hyperlipidemia Atherosclerotic heart disease of [place] coronary artery without angina pectoris Tobacco abuse Home Medications ?Medication ?Instructions ?Recorded ?Last Taken ?Type inhalational spacing device #1 ea 02/17/23 Unknown Rx (Aerochamber MV spacer) tiotropium bromide 2.5 2 puff inhalation DAILY #4 g sandra 02/17/23 09/27/24 Rx mcg/actuation mist for inhalation (Spiriva Respimat) lorazepam 1 mg tablet (Ativan) 1 mg PO TID PRN anxiety 07/16/23 09/27/24 History gabapentin 400 mg capsule 400 mg PO Q6H 07/29/2309/27 History nitroglycerin 0.4 mg sublingual 0.4 mg buccal Q5M PRN chest pain 07/29/23 Unknown History tablet sucralfate 1 gram tablet 1 g PO Q8H 07/29/23 09/27/24 History melatonin 3 mg capsule 3 mg PO QHS 09/05/23 5 History albuterol 90 mcg-budesonide 80 1 - 2 inh inhalation BI D PRN 09/28/24 09/27/24 History mcg/actuation HFA aerosol inhaler shortness of breath (Airsupra) atorvastatin 40 mg tablet 40 mg PO QHS 09/28/24 History bisacodyl 5 mg tablet,delayed 5 mg PO DAILY PRN consti pation 09/28/24 Unknown History release cholecalciferol (vitamin D3) 125 125 mcg PO DAILY 09/0809/27/24 History mcg (5,000 unit) capsule hydrocodone-acetaminophen 5-325mg 1 tab PO Q4H 5 09/27/24 History 5mg-325mg lisinopril 5 mg tablet 5 mg PO DAILY 09/28/2409/27 History oxycodone myristate 18 mg capsule 18 mg PO BID 5 09/27/24 History sprinkle extended release 12hr(DON'T CRUSH) (Xtampza ER) polyethylene glycol 3350 17 17 g PO BID 09/28/2409/27 History gram/dose oral powder promethazine 25 mg tablet 25 mg PO PRN PRN nausea and 09/28/24 Unknown History vomiting budesonide-formoterol HFA 160 1 puff inhalation BID #1 0.2 grams 09/30/24 Unknown Rx mcg-4.5 mcg/actuation aerosol inhaler (Symbicort) carvedilol 25 mg tablet 25 mg PO BID #120 tabs 10/04 Unknown Rx furosemide 40 mg tablet 40 mg PO QDAY #90 tabs 10/04 Unknown Rx Allergy/AdvReac Type Severity Reaction Status Date / Time No Known Allergies Allergy Verified 12/30/24 18:22 Family History Mother Hypertension CAD (coronary artery disease) CVA (cerebral vascular accident) Myocardial infarction Grandmother Myocardial infarction Surgical History History of cholecystectomy Hx of esophagogastroduodenoscopy History of cardiac catheterization History of hysterectomy History of left heart catheterization (01/20/22) History of total hysterectomy Hx of appendectomy Social History household members: none Smoking Status: Current some day smoker tobacco type: cigarettes alcohol intake: never substance use type: does not use ROS ROS ED ROS Narrative Constitutional: No fever, positive chills. HEENT: No sore throat. No neck pain. Cardiovascular: No chest pain. No palpitations. No pedal edema. Respiratory: No cough, no shortness of breath. Abdominal: Left upper quadrant abdominal pain. No nausea. No vomiting. No problems with bowel movements. Genitourinary: No dysuria. No hematuria. Musculoskeletal: No myalgias. No arthralgias. EXAM Physical Exam Narrative Exam Narrative: Afebrile. Vital signs noted. HEENT: Normocephalic. Atraumatic. PERRL, EOMI. Neck soft and supple. No pointtenderness or step off. Cardiovascular: Regular rate and rhythm. No murmurs, rubs, or gallops appreciated. Respiratory: No tachypnea. Lungs clear to auscultation bilaterally. Gastrointestinal: Abdomen soft, nontender, with normoactive bowel sounds. No rebound or guarding. Neurological: Awake. Alert. Nonfocal, nonlateralizing. Skin: No rash. Normal color. No pallor. Musculoskeletal: No pedal edema. Full range of motion extremities. Const Vital Signs: 12/30/24 18:20 12/30/24 19:52 12/30/24 21:00 Temperature 98.4 F Temperature Source Oral Pulse Rate 107 H 94 81 Respiratory Rate 20 H 16 16 Blood Pressure 145/101 H 168/98 H 141/92 H Blood Pressure Mean 115 121 108 Pulse Ox 90 87 95 Oxygen Delivery Method Room Air Room Air MDM MDM MDM Narrative Medical decision making narrative: Differential diagnosis includes but not limited to pneumonia versus ACS versus diverticulitis versus bowel obstruction versus pancreatitis. I have low suspicion for splenic rupture. Her pain has beenongoing for at least a month. EKG was obtained and interpreted by myself independently as normal sinus rhythm at 94 bpm without ectopy or acute ST changes. No STEMI. I reviewed her laboratory work and she has normal white count of 8.1 with hemoglobin 13.2, hematocrit 41.1, platelet count 208. CMP is grossly unremarkable with normal sodium of 142 and potassium 3.7. LFTs are normal. Lipase normal at 13 so I do not think she has a pancreatitis. Urinalysis negative for infection with negative nitrites, negative ketones and 0-5 WBCs. I do not feel antibiotics areindicated. Originally I had ordered CT of the abdomen and pelvis with IV contrast, but patient told the records technician that she had IV contrast once and had sideeffects to it. It is not listed as an allergy. Instead CT was performed without IV contrast. I reviewed the radiology report which shows no acute process. Chest x-ray obtained and interpreted by myself independently shows no pneumonia or pneumothorax. I reviewed the radiology report which confirms my independent interpretation. Upon repeat examination at approximately 2134, she feels slightly improved. Herabdomen remains soft. She states that she was supposed to have hernia surgery by Dr. Tejada on the right upper quadrant, but she was too high risk so she hasspoken on the phone with another surgeon. At this point in time, I think she ishaving more nonspecific abdominal pain. As there is no obstruction, and no inflammation, I feel she can be discharged to follow-up. She states she also sees Dr. Martinez that she can follow-up with him as well. Disposition is discharged home in stable condition. History & Record Review Discussion w/independent historian: Patient Additional record(s) reviewed:: Prior ED visit (Seen more for chest pain and shortness of breath recently) Lab Data Attestation: I reviewed the patient's lab results. Labs: Laboratory Results - last 24 hr 12/30/24 12/30/24 18:33 19:33 WBC 8.1 RBC 4.17 L Hgb 13.2 Hct 41.1 MCV 98.6 MCH 31.7 MCHC 32.1 RDW Std Deviation 47.3 H RDW Coeff of Sariah 13.1 Plt Count 208 MPV 9.7 Immature Gran % (Auto) 0.400 Neut % (Auto) 57.9 Lymph % (Auto) 32.5 [place] % (Auto) 6.9 Eos % (Auto) 1.7 Baso % (Auto) 0.6 Absolute Neuts (auto) 4.7 Absolute Lymphs (auto) 2.64 Nucleated RBC % 0 Sodium 142 Potassium 3.7 Chloride 103 Carbon Dioxide 29.7 Anion Gap 9 BUN 14 Creatinine 0.84 Estim Creat Clear Calc 62.99 Est GFR (MDRD) Non-Af 76 BUN/Creatinine Ratio 16.3 Glucose 99 Calcium 9.5 Total Bilirubin 0.30 AST 16 ALT 6 Alkaline Phosphatase 97 Total Protein 6.8 Albumin 3.8 Globulin 2.9 Albumin/Globulin Ratio 1.3 Lipase 13 Urine Color Yellow Urine Clarity Clear Urine pH 6.0 Ur Specific [place] 1.020 Urine Protein 30 H Urine Glucose (UA) Normal Urine Ketones Negative Urine Occult Blood Negative Urine Nitrite Negative Urine Bilirubin Negative Urine Urobilinogen Normal Ur Leukocyte Esterase 25 H Urine RBC 0-5 SEEN Urine WBC 0-5 SEEN Ur Squamous Epith Cells 0 SEEN Urine Bacteria 0 SEEN Urine Mucus 0 SEEN Radiography Diagnostic Testing: Clinical Impression(s) from Imaging Studies Abdomen/Pelvis CT 12/30/24 19:36 IMPRESSION: No acute abnormality. Large hiatal hernia. Bilateral nonobstructing renal stones. Sigmoid diverticulosis without diverticulitis. 3.8 cm abdominal aortic aneurysm. Reading Location: [facility] Chest X-Ray 12/30/24 20:07 IMPRESSION: No Acute Findings. Reading Location: [facility] Discharge Plan Triage Chief Complaint: Abd Pain Other Complaint: Back ED Provider: Waqas Hart Dx/Rx/DC Orders Clinical Impression: Abdominal pain, Continuous LUQ abdominal pain Instructions: ED Abdominal Pain Unkn Cause Fem Prescriptions: No Action Spiriva Respimat 2.5 mcg/actuation mist 2 puff inhalation DAILY Qty: 4 11RF (DME) Aerochamber MV Spacer See Rx Instructions .ROUTE .MEDSUPPLY Qty: 1 0RF Rx Instructions: As directed lorazepam [Ativan] 1 mg tablet 1 mg PO TID PRN (Reason: anxiety) furosemide 40 mg tablet 40 mg PO QDAY Qty: 90 3RF carvedilol 25 mg tablet 25 mg PO BID Qty: 120 3RF Rx Instructions: must administer with a meal/food melatonin 3 mg capsule 3 mg PO QHS gabapentin 400 mg capsule 400 mg PO Q6H nitroglycerin 0.4 mg tablet, sublingual 0.4 mg buccal Q5M PRN (Reason: chest pain) sucralfate 1 gram tablet 1 g PO Q8H promethazine 25 mg tablet 25 mg PO PRN PRN (Reason: nausea and vomiting) Xtampza ER 18 mg cap,sprinkl,ER12hr(DONT CRUSH) 18 mg PO BID Patient Comments: [NO ORIGINAL SIG] hydrocodone-acetaminophen 5-325 mg tablet 1 tab PO Q4H Airsupra 90-80 mcg/actuation HFA aerosol inhaler 1 - 2 inh INHALATION BID PRN (Reason: shortness of breath) Patient Comments: [NO ORIGINAL SIG] atorvastatin 40 mg tablet 40 mg PO QHS bisacodyl 5 mg tablet,delayed release (DR/EC) 5 mg PO DAILY PRN (Reason: constipation) Patient Comments: [NO ORIGINAL SIG] polyethylene glycol 3350 17 gram/dose powder 17 g PO BID cholecalciferol (vitamin D3) 125 mcg (5,000 unit) capsule 125 mcg PO DAILY lisinopril 5 mg tablet 5 mg PO DAILY budesonide-formoterol [Symbicort] 160-4.5 mcg/actuation HFA aerosol inhaler 1 puff inhalation BID Qty: 10.2 0RF Primary Care Provider: Gabriel Galvan Referrals: Gabriel Galvan MD [Primary Care Provider] - 3-5 Days if not improving Rakesh Martinez DO [Med Staff - Active Staff] - As soon as possible Print Language: Ecuadorean Disposition Disposition: Home, Self Care What to do if you have Problems For any increased pain, shortness of breath, bleeding, nausea or vomiting, chestpain, or any unexpected problems, contact your Primary Care Provider. Call [facility] ([phone]) or report tothe closest Emergency Room. Call 911 if necessary. 12/30/242147 Cosigner Signature (if applicable): CC: Dr. Gabriel Galvan MD ~ Signed [facility]04-25-2025 Radiology Diagnostic study note [facility] Imaging Services [address] [place], [place] [id number] Abdomen/Pelvis without Cont MR#: [id number] Acct: [id number] Name: MARCIA MASCORRO Rep #: [id number] : 1955 F 69 From: Lukasz Gandhi MD PCP: Dr. Gabriel Galvan MD Status: RE G ER Study:Abdomen/Pelvis without Cont Date of Exa m: 12/30/24 Exam# [id number] Ordering Dr: Waqas Hart MD PROCEDURE: ABDOMEN/PELVIS WITHOUT CONT 12/30/2024 REASON FOR EXAM: LEFT UPPER QUADRANT ABDOMINAL PAIN TECHNIQUE: Abdomen and pelvis CT without intravenous contrast. Noncontrast technique limits evaluation of the abdominal and pelvic viscera. Coronal and Sagittal reconstruction series were provided. One or more dose reduction techniques were used (e.g., Automated exposure control, adjustment of the mA and/or kV according to patient size, use of iterative reconstruction technique). PATIENT PREPARATION: Per protocol ORAL CONTRAST TYPE: None. AMOUNT: mL FINDINGS: Lung bases: Lung bases are clear. Liver: Normal size. No obvious mass. Gallbladder: Not visualized Spleen: Normal size. Pancreas: Normal size. No surrounding inflammation. Adrenals: Unremarkable. Kidneys: Bilateral nonobstructing renal stones. No hydronephrosis, ureteral stone, ureteral dilatation. Bladder: Unremarkable. Reproductive Organs: Unremarkable. Bowel: Large hiatal hernia. Some diverticula within the sigmoid colon consistent with diverticulosis. No wall thickening or stranding of surrounding fat to suggest diverticulitis. Appendix: Unremarkable. Lymph nodes: Unremarkable. Vasculature: Fusiform dilatation of the infrarenal abdominal aorta with a maximal diameter of 3.8 cm consistent with an aneurysm. Mild amount of peripheral calcified plaque. Calcified plaque in the iliac arteries. Peritoneum / Retroperitoneum: Unremarkable. Bones: Mild dextroscoliosis lumbar spine with degenerative disc disease. CT/Abdomen/Pelvis without Cont IMPRESSION: No acute abnormality. Large hiatal hernia. Bilateral nonobstructing renal stones. Sigmoid diverticulosis without diverticulitis. 3.8 cm abdominal aortic aneurysm. Reading Location: [facility] CC: Dr. Waqas Hart MD; Dr. Gabriel Galvan MD ~ Service Consultant: Signed [facility]04-25-2025 Radiology Diagnostic study note [facility] Imaging Services [address] [place] [address] Chest 1 View (Portable) MR#: [id number] Acct: [id number] Name: MARCIA MASCORRO Rep #: [id number] : 1955 F 69 From: Lukasz Gandhi MD PCP: Dr. Gabriel Galvan MD Status: RE G ER Study:Chest 1 View (Portable) Date of Exam: 12/30/24 Exam# [id number] Ordering Dr: Waqas Hart MD PROCEDURE: CHEST 1 VIEW (PORTABLE) 12/30/2024 REASON FOR EXAM: COPD TECHNIQUE: Frontal view of the chest. COMPARISON: 12/20/2024 FINDINGS: Hardware: None Heart: Heart size is moderately enlarged. Lungs: The lungs are clear. Bones: The bones are unremarkable. Other: RAD/Chest 1 View (Portable) IMPRESSION: No Acute Findings. Reading Location: [facility] CC: Dr. Waqas Hart MD; Dr. Gabriel Galvan MD ~ Service Consultant: Signed [facility]04-25-2025 Discharge summary Author Waqas Hart [facility] Note Date/Time December 30, 2024 9:4 8pm [facility] Medical Records Department [address] [place] [address] Emergency Department Summary 12/30/24 MR#: [id number] Acct: [id number] Name: MARCIA MASCORRO Rep #:[id number] : 1955 69 From: Waqas Hart MD PCP: Dr. Gabriel Galvan MD Status:RE G ER Location: ED HPI HPI - GI History of Present Illness Chief Complaint: Abd Pain Narrative Narrative: 69-year-old female past medical history of COPD presents with left upper quadrant abdominal pain that she has had over the last month. She states that she was seen in the emergency department a few weeks to over a month ago. She was seen for different reason but states that she has had left upper quadrant abdominal pain. Sometimes is sharp and stabbing. She has history of Retana's esophagus as well. She denies any fever but states she has had chills, no exacerbating or alleviating factors. No dysuria or hematuria. No problems withbowel movements. She states that she has this pain that she has had for quite some time. [facility] Medical History Chronic pain Kidney disease Asthma Irregular heart beat Congestive heart failure (CHF) TIA (transient ischemic attack) Wears glasses Post-menopausal Arthritis History of renal disease High cholesterol DVT (deep venous thrombosis) Easy bruising Excessive bleeding Back pain Injury of back History of ulceration Difficulty chewing Gastric reflux Shortness of breath on exertion Hoarseness Chronic cough Leg cramps History of pain when walking History of edema History of echocardiogram History of stress test Cardiology follow-up encounter History of CHF (congestive heart failure) History of irregular heartbeat Chest pain Bullous emphysema COPD with asthma Esophagitis, unspecified without bleeding Unspecified combined 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 Other chronic pain Elevated troponin Sustained SVT Depression Osteoporosis Kidney stones Smoker Myocardial infarct History of non-ST elevation myocardial infarction (NSTEMI) (09/01/21) Essential hypertension Old anterior wall myocardial infarction Ischemic cardiomyopathy Opiate dependence Anxiety and depression TIA (transient ischemic attack) Obesity (BMI 30.0-34.9) EVELYN (obstructive sleep apnea) Personal history of transient ischemic attack (TIA), and cerebral infarction without residual deficits COPD (chronic obstructive pulmonary disease) Calculus of left kidney GERD (gastroesophageal reflux disease) Hyperlipidemia Atherosclerotic heart disease of [place] coronary artery without angina pectoris Tobacco abuse Home Medications ?Medication ?Instructions ?Recorded ?Last Taken ?Type inhalational spacing device #1 ea 02/17/23 Unknown Rx (Aerochamber MV spacer) tiotropium bromide 2.5 2 puff inhalation DAILY #4 g sandra 02/17/23 09/27/24 Rx mcg/actuation mist for inhalation (Spiriva Respimat) lorazepam 1 mg tablet (Ativan) 1 mg PO TID PRN anxiety 07/16/23 09/27/24 History gabapentin 400 mg capsule 400 mg PO Q6H 07/29/2309/27 History nitroglycerin 0.4 mg sublingual 0.4 mg buccal Q5M PRN chest pain 07/29/23 Unknown History tablet sucralfate 1 gram tablet 1 g PO Q8H 07/29/23 09/27/24 History melatonin 3 mg capsule 3 mg PO QHS 09/05/23 5 History albuterol 90 mcg-budesonide 80 1 - 2 inh inhalation BI D PRN 09/28/24 09/27/24 History mcg/actuation HFA aerosol inhaler shortness of breath (Airsupra) atorvastatin 40 mg tablet 40 mg PO QHS 09/28/24 History bisacodyl 5 mg tablet,delayed 5 mg PO DAILY PRN consti pation 09/28/24 Unknown History release cholecalciferol (vitamin D3) 125 125 mcg PO DAILY 09/0809/27/24 History mcg (5,000 unit) capsule hydrocodone-acetaminophen 5-325mg 1 tab PO Q4H 5 09/27/24 History 5mg-325mg lisinopril 5 mg tablet 5 mg PO DAILY 09/28/2409/27 History oxycodone myristate 18 mg capsule 18 mg PO BID 5 09/27/24 History sprinkle extended release 12hr(DON'T CRUSH) (Xtampza ER) polyethylene glycol 3350 17 17 g PO BID 09/28/2409/27 History gram/dose oral powder promethazine 25 mg tablet 25 mg PO PRN PRN nausea and 09/28/24 Unknown History vomiting budesonide-formoterol HFA 160 1 puff inhalation BID #1 0.2 grams 09/30/24 Unknown Rx mcg-4.5 mcg/actuation aerosol inhaler (Symbicort) carvedilol 25 mg tablet 25 mg PO BID #120 tabs 10/04 Unknown Rx furosemide 40 mg tablet 40 mg PO QDAY #90 tabs 10/04 Unknown Rx Allergy/AdvReac Type Severity Reaction Status Date / Time No Known Allergies Allergy Verified 12/30/24 18:22 Family History Mother Hypertension CAD (coronary artery disease) CVA (cerebral vascular accident) Myocardial infarction Grandmother Myocardial infarction Surgical History History of cholecystectomy Hx of esophagogastroduodenoscopy History of cardiac catheterization History of hysterectomy History of left heart catheterization (01/20/22) History of total hysterectomy Hx of appendectomy Social History household members: none Smoking Status: Current some day smoker tobacco type: cigarettes alcohol intake: never substance use type: does not use ROS ROS ED ROS Narrative Constitutional: No fever, positive chills. HEENT: No sore throat. No neck pain. Cardiovascular: No chest pain. No palpitations. No pedal edema. Respiratory: No cough, no shortness of breath. Abdominal: Left upper quadrant abdominal pain. No nausea. No vomiting. No problems with bowel movements. Genitourinary: No dysuria. No hematuria. Musculoskeletal: No myalgias. No arthralgias. EXAM Physical Exam Narrative Exam Narrative: Afebrile. Vital signs noted. HEENT: Normocephalic. Atraumatic. PERRL, EOMI. Neck soft and supple. No pointtenderness or step off. Cardiovascular: Regular rate and rhythm. No murmurs, rubs, or gallops appreciated. Respiratory: No tachypnea. Lungs clear to auscultation bilaterally. Gastrointestinal: Abdomen soft, nontender, with normoactive bowel sounds. No rebound or guarding. Neurological: Awake. Alert. Nonfocal, nonlateralizing. Skin: No rash. Normal color. No pallor. Musculoskeletal: No pedal edema. Full range of motion extremities. Const Vital Signs: 12/30/24 18:20 12/30/24 19:52 12/30/24 21:00 Temperature 98.4 F Temperature Source Oral Pulse Rate 107 H 94 81 Respiratory Rate 20 H 16 16 Blood Pressure 145/101 H 168/98 H 141/92 H Blood Pressure Mean 115 121 108 Pulse Ox 90 87 95 Oxygen Delivery Method Room Air Room Air MDM MDM MDM Narrative Medical decision making narrative: Differential diagnosis includes but not limited to pneumonia versus ACS versus diverticulitis versus bowel obstruction versus pancreatitis. I have low suspicion for splenic rupture. Her pain has been ongoing for at least a month. EKG was obtained and interpreted by myself independently as normal sinus rhythm at 94 bpm without ectopy or acute ST changes. No STEMI. I reviewed her laboratory work and she has normal white count of 8.1 with hemoglobin 13.2, hematocrit 41.1, platelet count 208. CMP is grossly unremarkable with normal sodium of 142 and potassium 3.7. LFTs are normal. Lipase normal at 13 so I do not think she has a pancreatitis. Urinalysis negative for infection with negative nitrites, negative ketones and 0-5 WBCs. I do not feel antibiotics areindicated. Originally I had ordered CT of the abdomen and pelvis with IV contrast, but patient told the records technician that she had IV contrast once and had sideeffects to it. It is not listed as an allergy. Instead CT was performed without IV contrast. I reviewed the radiology report which shows no acute process. Chest x-ray obtained and interpreted by myself independently shows no pneumonia or pneumothorax. I reviewed the radiology report which confirms my independent interpretation. Upon repeat examination at approximately 2135, she feels slightly improved. Herabdomen remains soft. She states that she was supposed to have hernia surgery by Dr. Tejada on the right upper quadrant, but she was too high risk so she hasspoken on the phone with another surgeon. At this point in time, I think she ishaving more nonspecific abdominal pain. As there is no obstruction, and no inflammation, I feel she can be discharged to follow-up. She states she also sees Dr. Martinez that she can follow-up with him as well. Disposition is discharged home in stable condition. History & Record Review Discussion w/independent historian: Patient Additional record(s) reviewed:: Prior ED visit (Seen more for chest pain and shortness of breath recently) Lab Data Attestation: I reviewed the patient's lab results. Labs: Laboratory Results - last 24 hr 12/30/24 12/30/24 18:33 19:33 WBC 8.1 RBC 4.17 L Hgb 13.2 Hct 41.1 MCV 98.6 MCH 31.7 MCHC 32.1 RDW Std Deviation 47.3 H RDW Coeff of Sariah 13.1 Plt Count 208 MPV 9.7 Immature Gran % (Auto) 0.400 Neut % (Auto) 57.9 Lymph % (Auto) 32.5 [place] % (Auto) 6.9 Eos % (Auto) 1.7 Baso % (Auto) 0.6 Absolute Neuts (auto) 4.7 Absolute Lymphs (auto) 2.64 Nucleated RBC % 0 Sodium 142 Potassium 3.7 Chloride 103 Carbon Dioxide 29.7 Anion Gap 9 BUN 14 Creatinine 0.84 Estim Creat Clear Calc 62.99 Est GFR (MDRD) Non-Af 76 BUN/Creatinine Ratio 16.3 Glucose 99 Calcium 9.5 Total Bilirubin 0.30 AST 16 ALT 6 Alkaline Phosphatase 97 Total Protein 6.8 Albumin 3.8 Globulin 2.9 Albumin/Globulin Ratio 1.3 Lipase 13 Urine Color Yellow Urine Clarity Clear Urine pH 6.0 Ur Specific [place] 1.020 Urine Protein 30 H Urine Glucose (UA) Normal Urine Ketones Negative Urine Occult Blood Negative Urine Nitrite Negative Urine Bilirubin Negative Urine Urobilinogen Normal Ur Leukocyte Esterase 25 H Urine RBC 0-5 SEEN Urine WBC 0-5 SEEN Ur Squamous Epith Cells 0 SEEN Urine Bacteria 0 SEEN Urine Mucus 0 SEEN Radiography Diagnostic Testing: Clinical Impression(s) from Imaging Studies Abdomen/Pelvis CT 12/30/24 19:36 IMPRESSION: No acute abnormality. Large hiatal hernia. Bilateral nonobstructing renal stones. Sigmoid diverticulosis without diverticulitis. 3.8 cm abdominal aortic aneurysm. Reading Location: [facility] Chest X-Ray 12/30/24 20:07 IMPRESSION: No Acute Findings. Reading Location: [facility] Discharge Plan Triage Chief Complaint: Abd Pain Other Complaint: Back ED Provider: Waqas Hart Dx/Rx/DC Orders Clinical Impression: Abdominal pain, Continuous LUQ abdominal pain Instructions: ED Abdominal Pain Unkn Cause Fem Prescriptions: No Action Spiriva Respimat 2.5 mcg/actuation mist 2 puff inhalation DAILY Qty: 4 11RF (DME) Aerochamber MV Spacer See Rx Instructions .ROUTE .MEDSUPPLY Qty: 1 0RF Rx Instructions: As directed lorazepam [Ativan] 1 mg tablet 1 mg PO TID PRN (Reason: anxiety) furosemide 40 mg tablet 40 mg PO QDAY Qty: 90 3RF carvedilol 25 mg tablet 25 mg PO BID Qty: 120 3RF Rx Instructions: must administer with a meal/food melatonin 3 mg capsule 3 mg PO QHS gabapentin 400 mg capsule 400 mg PO Q6H nitroglycerin 0.4 mg tablet, sublingual 0.4 mg buccal Q5M PRN (Reason: chest pain) sucralfate 1 gram tablet 1 g PO Q8H promethazine 25 mg tablet 25 mg PO PRN PRN (Reason: nausea and vomiting) Xtampza ER 18 mg cap,sprinkl,ER12hr(DONT CRUSH) 18 mg PO BID Patient Comments: [NO ORIGINAL SIG] hydrocodone-acetaminophen 5-325 mg tablet 1 tab PO Q4H Airsupra 90-80 mcg/actuation HFA aerosol inhaler 1 - 2 inh INHALATION BID PRN (Reason: shortness of breath) Patient Comments: [NO ORIGINAL SIG] atorvastatin 40 mg tablet 40 mg PO QHS bisacodyl 5 mg tablet,delayed release (DR/EC) 5 mg PO DAILY PRN (Reason: constipation) Patient Comments: [NO ORIGINAL SIG] polyethylene glycol 3350 17 gram/dose powder 17 g PO BID cholecalciferol (vitamin D3) 125 mcg (5,000 unit) capsule 125 mcg PO DAILY lisinopril 5 mg tablet 5 mg PO DAILY budesonide-formoterol [Symbicort] 160-4.5 mcg/actuation HFA aerosol inhaler 1 puff inhalation BID Qty: 10.2 0RF Primary Care Provider: Gabriel Galvan Referrals: Gabriel Galvan MD [Primary Care Provider] - 3-5 Days if not improving Friend,Rakesh, DO [Med Staff - Active Staff] - As soon as possible Print Language: Ecuadorean Disposition Disposition: Home, Self Care What to do if you have Problems For any increased pain, shortness of breath, bleeding, nausea or vomiting, chestpain, or any unexpected problems, contact your Primary Care Provider. Call [facility] ([phone]) or report to the closest Emergency Room. Call 911 if necessary. 12/30/242147 <Electronically signed by Waqas Hart MD> Cosigner Signature (if applicable): CC: Dr. Gabriel Galvan MD ~ Signed [facility] Work Phone: [phone]) 307-768404-18-2025 NoteHNO ID: [id number] Author: SALUD FOSTER, ? Service: ? Author Type: Patient Regulation Supervisor Type: Progress Notes Filed: 12/23/2024 08:17 Note Text: POPULATION HEALTH NAVIGATION OUTREACH Action/FYI Scheduled patient ED follow up appt ED utilization to be reviewed Discussed HM will send my chart with HM due Reason for Outreach Community Monitoring/Network Navigator Pools AND Phone Line: CM Pool Care Gaps due: Medicare Annual Wellness Visit Follow-up Appointment Breast Cancer Screening Diabetic Eye Exam KED Patient Contacted: Spoke to patient/parent/or legal guardian Patient identified by name and : Yes Community Monitoring/Network Navigator Pools AND Phone Line actions taken: Patient scheduled / pended orders: ER Follow-up 12/28/2024 in [facility] with NORA CRESPO - ED follow up 01/09/2025 in [facility] with NORA CRESPO - 3 month follow up 04/17/2025 in [facility] with GABRIEL GALVAN - 3 month follow up, HM: AWV, Mammo, Eye exam, KED, HCC Gap Closure Navigation Signature: Salud Foster Population Health Navigator December 23, 2024 8:14 [facility]04-17-2025 NoteHNO ID: [id number] Author: BRENDA MCGINNIS RN Service: ? Author Type: Registered Nurse Type: Progress Notes Filed: 12/22/2024 19:52 Note Text: Summary: Chart review review per request of payor ZEENAT MANUELA RN Patient identified by name and date of . Reason for review or outreach: Chart Review Manuela Priority Emergency Department Utilization REQUESTED ACTION/FYI: Please see ED Utilization summary below A follow-up appointment is noted to be scheduled on 01/09/25. We are forwarding this patient to [employer] Navigation to schedule a sooner [facility] 12/20/24 PCP follow-up appointment. Thank you Exclusion Criteria Incorrect attribution Does not meet exclusion criteria Utilization in past 12 months: # Occurrences Date Last Occurrence Hospital Admission 3 09/28/24 Hospital Observation 0 N/A ED 5-OON 12/20/24 SNF / Acute Rehab / LTAC 1 12/01/23 ED DIAGNOSES/REASON(S) FOR ED USE: [facility] 12/20/24 COPD exacerbation vs pneumonia OTHER FINDINGS/SUMMARY: Prescribed Steroids, advised no smoking with oxygen, F/U with pcp Patient Attributed To: Incorrect attribution QAE Payer: Yang DIOR Action Taken: Referrals/Routed: Population Health Navigation: Appointment. Router to [facility] [[id number]] -Payor attribution list updated with changed PCP information Contact made with patient: No, Chart review only. Signature: Brenda Mcginnis MSN,RN,[facility] Mechanical Insulator Management Contract RN [phone]04-17-2025 History of Present illness Narrative* Brenda Mcginnis RN - 12/22/2024 7:43 PM EDTSummary: Chart review review per request of payor ZEENAT MANUELA RN Patient identified by name and date of . Reason for review or outreach: Chart Review Manuela Priority Emergency Department Utilization REQUESTED ACTION/FYI: Please see ED Utilization summary below A follow-up appointment is noted to be scheduled on 01/09/25. We are forwarding this patient to Network Navigation to schedule a sooner [place] [facility] 12/20/24 PCP follow-up appointment. Thank you Exclusion Criteria Incorrect attribution Does not meet exclusion criteria Utilization in past 12 months: # Occurrences Date Last Occurrence Hospital Admission 3 09/28/24 Hospital Observation 0 N/A ED 5-OON 12/20/24 SNF / Acute Rehab / LTAC 1 12/01/23 ED DIAGNOSES/REASON(S) FOR ED USE: [place] [facility] 12/20/24 COPD exacerbation vs pneumonia OTHER FINDINGS/SUMMARY: Prescribed Steroids, advised no smoking with oxygen, F/U with pcp Patient Attributed To: Incorrect attribution QAE Payer: Yang DIOR Action Taken: Referrals/Routed: Population Health Navigation: Appointment. Router to [facility] [[phone]] -Payor attribution list updated with changed PCP information Contact made with patient: No, Chart review only. Signature: Brenda MYERS,RN,[facility] Mechanical Insulator Management Contract RN [phone] documented [facility] NotePatient Outreach ([facility]) MARCIA MASCORRO ([id number]) 1955 F CHT Date Time Provider Department 12/22/24 BRENDA MCGINNIS [facility] During your visit today, we recorded the following information about you: Brenda Mcginnis RN 12/22/2024 7:52 PM Signed ACM MANUELA RN Patient identified by name and date of . Reason for review or outreach: Chart Review Manuela Priority Emergency Department Utilization REQUESTED ACTION/FYI: Please see ED Utilization summary below A follow-up appointment is noted to be scheduled on 01/09/25. We are forwarding this patient to Network Navigation to schedule a sooner [place] [facility] 12/20/24 PCP follow-up appointment. Thank you Exclusion Criteria Incorrect attribution Does not meet exclusion criteria Utilization in past 12 months: # Occurrences Date Last Occurrence Hospital Admission 3 09/28/24 Hospital Observation 0 N/A ED 5-OON 12/20/24 SNF / Acute Rehab / LTAC 1 12/01/23 ED DIAGNOSES/REASON(S) FOR ED USE: [place] [facility] 12/20/24 COPD exacerbation vs pneumonia OTHER FINDINGS/SUMMARY: Prescribed Steroids, advised no smoking with oxygen, F/U with pcp Patient Attributed To: Incorrect attribution QAE Payer: Yang DIOR Action Taken: Referrals/Routed: Population Health Navigation: Appointment. Router to [facility] [[id number]] -Payor attribution list updated with changed PCP information Contact made with patient: No, Chart review only. Signature: Brenda MYERS,RN,[facility] Mechanical Insulator Management Contract RN [phone] Salud Foster 12/23/2024 8:17 AM Signed POPULATION HEALTH NAVIGATION OUTREACH Action/FYI Scheduled patient ED follow up appt ED utilization to be reviewed Discussed HM will send my chart with HM due Reason for Outreach Community Monitoring/Network Navigator Pools AND Phone Line: Pool Care Gaps due: Medicare Annual Wellness Visit Follow-up Appointment Breast Cancer Screening Diabetic Eye Exam KED Patient Contacted: Spoke to patient/parent/or legal guardian Patient identified by name and : Yes Community Monitoring/Network Navigator Pools AND Phone Line actions taken: Patient scheduled / pended orders: ER Follow-up 12/28/2024 in [facility] with NORA CRESPO - ED follow up 01/09/2025 in [facility] with NORA CRESPO - 3 month follow up 04/17/2025 in [facility] with GABRIEL GALVAN - 3 month follow up, HM: AWV, Mammo, Eye exam, KED, [facility] Gap Closure Navigation Signature: Salud Foster Population Health Navigator December 23, 2024 8:14 AM Allergies As of Date: 12/22/2024 Noted Allergy Reaction CONTRAST DYE (IODINE) 12/20/2023 10 - Anaphylaxis Date Reviewed: 09/14/2024 Reviewed by: Melissa Leon LPN - Fully Assessed Reason for Visit: ACM MANUELA RN [[id number]] Cmt: Chart review review per request of payor Prescriptions as of 12/23/2024 - albuterol-budesonide HFA (AIRSUPRA) 90-80 mcg/actuation inhaler Inhale 2 Puffs as instructed every 2 hours as needed for wheezing/shortness of breath. Do not take more than 12 inhalations in a 24 hour period. - Bisacodyl (DULCOLAX) 5 mg tab Take 1 tablet by mouth once daily as needed for constipation. - DULoxetine (CYMBALTA) 30 mg capsule Take 1 capsule by mouth once daily. - sucralfate (CARAFATE) 100 mg/mL suspension Take 10 mL by mouth four times daily. (take prior to meals and at bedtime) - promethazine (PHENERGAN) 25 mg tablet Take 1 tablet by mouth every 6 hours as needed. - spironolactone (ALDACTONE) 25 mg tablet Take 1 tablet by mouth once daily. - polyethylene glycol 3350 (MIRALAX) 17 gram/dose powder Take 17 g by mouth once daily. Dissolve dose in 4 - 8 ounces of liquid and take as directed. - omeprazole (PRILOSEC) 40 mg capsule Take 1 capsule by mouth once daily. - Nutritional Supplements (OPTIMENTAL) liqd Take 237 mL by mouth once daily. Okay with what insurance covers - Diaper,Brief, Adult,Disposable (DEPEND EASY FIT UNDERGARMENTS) Size Large pull up. Change depends once every 1-2 hrs. Dx incontinence (788.30) Prolapsed bladder (618.01) - atorvastatin (LIPITOR) 40 mg tablet Take 1 tablet by mouth daily at bedtime. - senna-docusate (SENNA PLUS) 8.6-50 mg per tablet Take 1 tablet by mouth every morning AND 1 tablet daily at bedtime. - tiotropium bromide (SPIRIVA RESPIMAT) 2.5 mcg/actuation inhaler Inhale 2 Puffs as instructed once daily. Inhale two puffs once daily. - sodium phosphate-sodium bisphosphate (FLEET) enema 133 mL by RECTAL route as needed for constipation. - ondansetron (ZOFRAN) 4 mg tablet Take 1 tablet by mouth every 8 hours as needed for nausea/vomiting. - magnesium hydroxide (MILK OF MAGNESIA) 400 mg/5 mL suspension Take 30 mL by mouth once daily as needed for constipation. - lisinopril (ZESTRIL) 5 mg tablet Take 1 tablet by mouth once daily. - gabapentin (NEURONTIN) 400 mg (more content not included)...[facility]04-15-[address] [facility] Medical Records Department [address] [place] [address] Emergency Department Summary 12/20/24 MR#: [id number] Acct: [id number] Name: MARCIA MASCORRO Rep #:[id number] : 1955 69 From: Waqas Hart MD PCP: Dr. Gabriel Galvan MD Status:RE G ER Location: ED HPI History of Present Illness Chief Complaint: Shortness of Breath Narrative Narrative: 69-year-old female presents with her family because of increasing shortness of breath over the last2 days. She has a past medical history of COPD and wears oxygen at home. She states she has had to increase her oxygen from 2 L to 3 L, and additionally she reports that yesterday she had a pulse ox in the 70s to 80s. She does continue to smoke cigarettes. Today, she was seen by her pain managementdoctor and her family was concerned about her breathing issues over the last 2 days so they state that they brought her to the emergency department for evaluation. She denies any fevers or chills butstates she has had occasional cough. No leg swelling. She also feels lightheaded. She told triage that she was having chest pain with radiation to the left shoulder as well. [facility] Medical History Chronic pain Kidney disease Asthma Irregular heart beat Congestive heart failure (CHF) TIA (transient ischemic attack) Wears glasses Post-menopausal Arthritis History of renal disease High cholesterol DVT (deep venous thrombosis) Easy bruising Excessive bleeding Back pain Injury of back History of ulceration Difficulty chewing Gastric reflux Shortness of breath on exertion Hoarseness Chronic cough Leg cramps History of pain when walking History of edema History of echocardiogram History of stress test Cardiology follow-up encounter History of CHF (congestive heart failure) History of irregular heartbeat Chest pain Bullous emphysema COPD with asthma Esophagitis, unspecified without bleeding Unspecified combined 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 Other chronic pain Elevated troponin Sustained SVT Depression Osteoporosis Kidney stones Smoker Myocardial infarct History of non-ST elevation myocardial infarction (NSTEMI) (09/01/21) Essential hypertension Old anterior wall myocardial infarction Ischemic cardiomyopathy Opiate dependence Anxiety and depression TIA (transient ischemic attack) Obesity (BMI 30.0-34.9) EVELYN (obstructive sleep apnea) Personal history of transient ischemic attack (TIA), and cerebral infarction without residual deficits COPD (chronic obstructive pulmonary disease) Calculus of left kidney GERD (gastroesophageal reflux disease) Hyperlipidemia Atherosclerotic heart disease of [place] coronary artery without angina pectoris Tobacco abuse Home Medications ?Medication ?Instructions ?Recorded ?Last Taken ?Type inhalational spacing device #1 ea 02/17/23 Unknown Rx (Aerochamber MV spacer) tiotropium bromide 2.5 2 puff inhalation DAILY #4 g sandra 02/17/23 09/27/24 Rx mcg/actuation mist for inhalation (Spiriva Respimat) lorazepam 1 mg tablet (Ativan) 1 mg PO TID PRN anxiety 07/16/23 09/27/24 History gabapentin 400 mg capsule 400 mg PO Q6H 07/29/2309/27 History nitroglycerin 0.4 mg sublingual 0.4 mg buccal Q5M PRN chest pain 07/29/23 Unknown History tablet sucralfate 1 gram tablet 1 g PO Q8H 07/29/23 09/27/24 History albuterol sulfate 2.5 mg/3 mL 2.5 mg continuous nebuli zation Q6H 09/05/23 Unknown History (0.083 %) solution for nebulization PRN shortness of b reath or wheezing melatonin 3 mg capsule 3 mg PO QHS 09/05/23 5 History albuterol 90 mcg-budesonide 80 1 - 2 inh inhalation BI D PRN 09/28/24 09/27/24 History mcg/actuation HFA aerosol inhaler shortness of breath (Airsupra) atorvastatin 40 mg tablet 40 mg PO QHS 09/28/24 History bisacodyl 5 mg tablet,delayed 5 mg PO DAILY PRN consti pation 09/28/24 Unknown History release cholecalciferol (vitamin D3) 125 125 mcg PO DAILY 09/0809/27/24 History mcg (5,000 unit) capsule hydrocodone-acetaminophen 5-325mg 1 tab PO Q4H 5 09/27/24 History 5mg-325mg lisinopril 5 mg tablet 5 mg PO DAILY 09/28/2409/27 History oxycodone myristate 18 mg capsule 18 mg PO BID 5 09/27/24 History sprinkle extended release 12hr(DON'T CRUSH) (Xtampza ER) polyethylene glycol 3350 17 17 g PO BID 09/28/2409/27 History gram/dose oral powder promethazine 25 mg tablet 25 mg PO PRN PRN nausea and 09/28/24 Unknown History vomiting albuterol sulfate 90 mcg/actuation 2 puff inhalation Q 6H PRN 09/30/24 Unknown Rx aerosol inhaler shortness of breath or wheez ing #8.5 grams budesonide-formoterol HFA 160 1 puff inhalation BID #1 0.2 grams 09/30/24 Unknown Rx mcg-4.5 mcg/actuation aerosol inhaler (Symbicort) doxycycline hyclate 100 mg capsule 100 mg PO BID #14 c aps 09/30/24 Unknown Rx guaifenesin 1,200 mg tablet, 1,200 mg PO BID #30 tabs 09/30/24 Unknown Rx extended release 12 hr (Mucus Relief ER) prednisone 20 mg tablet 20 mg PO BID #10 tabs Unknown Rx carvedilol 25 mg tablet 25 mg PO BID #120 tabs 10/04 Unknown Rx furosemide 40 mg tablet 40 mg PO QDAY #90 tabs 10/04 Unknown Rx prednisone 20 mg tablet 40 mg (2 x 20 mg) PO DAILY 7 days 12/20/24 Unknown Rx #14 tabs Allergy/AdvReac Type Severity Reaction Status Date / Time No Known Allergies Allergy Verified 12/20/24 15:46 Family History Mother Hypertension CAD (coronary artery disease) CVA (cerebral vascular accident) Myocardial infarction Grandmother Myocardial infarction Surgical History History of cholecystectomy Hx of esophagogastroduodenoscopy History of cardiac catheterization History of hysterectomy History of left heart catheterization (01/20/22) History of total hysterectomy Hx of appendectomy Social History household members: none Smoking Status: Current some day smoker tobacco type: cigarettes alcohol intake: never substance use type: does not use ROS ROS ED ROS Narrative Constitutional: No fever, no chills. HEENT: No rhinorrhea. Cardiovascular: Positive chest pain. No palpitations. No pedal edema. Respiratory: Occasional cough, positive shortness of breath. Abdominal: No abdominal pain. No nausea. No vomiting. Genitourinary: No dysuria. No hematuria. Musculoskeletal: No myalgias. No arthralgias. Neurologic: No headaches. No dizziness. Positive lightheadedness. EXAM Physical Exam Narrative Exam Narrative: Afebrile. Vital signs noted. Nontoxic-appearing. Cardiovascular examination reveals a regular rate and rhythm, lung sounds are clear to auscultation bilaterally with diminished sounds at the bilateral bases, no rhonchi or wheezing. No appreciable rales. Abdomen is soft and nontender without guarding or rebound. Positive bowel sounds. Neurological examination nonfocal, nonlateralizing. No pedal edema. Const Vital Signs: 12/20/24 15:01 12/20/24 15:04 12/20/24 15:05 Temperature 98.7 F Temperature Source Oral Pulse Rate 80 Respiratory Rate 22 H Respiratory Effort Respiratory Pattern Blood Pressure 164/99 H Blood Pressure Mean 120 Pulse Ox 88 92 95 Oxygen Delivery Method Nasal Cannula Nasal Cannula Nasal Cannula Oxygen Flow Rate (L/min) 3 4 2 12/20/24 15:42 12/20/24 15:46 12/20/24 16:28 Temperature Temperature Source Pulse Rate Respiratory Rate 18 Respiratory Effort Short of Breath Short of Breath Respiratory Pattern Normal Normal Blood Pressure Blood Pressure Mean Pulse Ox Oxygen Delivery Method Oxygen Flow Rate (L/min) 12/20/24 16:36 12/20/24 17:00 12/20/24 18:00 Temperature Temperature Source Pulse Rate 69 74 93 Respiratory Rate 18 18 18 Respiratory Effort Respiratory Pattern Blood Pressure 159/85 H 168/93 H 171/100 H Blood Pressure Mean 109 118 123 Pulse Ox 96 93 93 Oxygen Delivery Method Nasal Cannula Nasal Cannula Nasal Cannula Oxygen Flow Rate (L/min) 2 2 2 12/20/24 18:15 Temperature 97.4 F L Temperature Source Pulse Rate 73 Respiratory Rate 18 Respiratory Effort Respiratory Pattern Blood Pressure 149/77 H Blood Pressure Mean 101 Pulse Ox 96 Oxygen Delivery Method Oxygen Flow Rate (L/min) MDM MDM MDM Narrative Medical decision making narrative: The differential diagnosis includes but not limited to COPD exacerbation versus bronchitis versus pneumonia versus pneumothorax. I have low suspicion clinically for pulmonary embolism as she is not tachycardic. She is satting 95%on 2 L nasal cannula currently. Smoking cessation was discussed. She was administered a DuoNeb aerosolized treatment and Solu-Medrol as well. To help rule out ACS as well, per protocol troponins were ordered by RN. EKG was obtained and interpreted by myself independently as normal sinus rhythm at [address] changes. No STEMI. I reviewed her laboratory work and she has normal white count of 5.0 with hemoglobin normal at 13.1, hematocrit 39.5 with platelet count normal at 183. Coags are negative. Sodium is normal at 141 with potassium of 4.3, BUN of 9 andcreatinine 0.78, glucose is elevated at 117 but anion gap normal at 8. Initial high-sensitivity troponin is 11 with 2-hour being 12. I feel she has been ruledout for ACS with biomarkers. On my individual interpretation of her chest x-ray, there is no gross consolidation or pneumothorax. I reviewed the radiology report which comments on slight increase in her right base atelectasis versus early infiltrate. I do not feel she needs antibiotics as she is not complainingof productive cough, she has no fever or white count here. She was able to ambulate here on 2 L of oxygen. She wears oxygen as needed at home. Her pulse ox remained 91 to 95%. She was told to wear her oxygen more frequently especially if she notices a low pulse ox. She was told that she can increase it to as much as 5 L/min. Additionally, she was told not to smoke on her oxygen and to attempt to quit smoking. At this point in time, I do not feelthat she requires admission or observation. She has albuterol at home that she has been using. I wrote her for steroid burst for the next 7 days that she can strip picker from the pharmacy tomorrow. She is motivated for discharge. Her familyis as well. Return instructions to the emergency department were reviewed. Disposition is discharged home in stable condition. History & Record Review Discussion w/independent historian: Patient and Family Lab Data Attestation: I reviewed the patient's lab results. Labs: Laboratory Results - last 24 hr 12/20/24 12/20/24 15:08 17:22 WBC 5.0 RBC 4.15 L Hgb 13.1 Hct 39.5 MCV 95.2 MCH 31.6 MCHC 33.2 RDW Std Deviation 44.1 H RDW Coeff of Sariah 12.7 Plt Count 183 MPV 9.4 Immature Gran % (Auto) 0.200 Neut % (Auto) 52.8 Lymph % (Auto) 35.8 [place] % (Auto) 7.6 Eos % (Auto) 2.8 Baso % (Auto) 0.8 Absolute Neuts (auto) 2.6 Absolute Lymphs (auto) 1.79 Nucleated RBC % 0 PT 13.1 INR 1.0 Sodium 141 Potassium 4.3 Chloride 102 Carbon Dioxide 30.9 Anion Gap 8 BUN 9 Creatinine 0.78 Est GFR (MDRD) Non-Af 83 BUN/Creatinine Ratio 11.7 Glucose 117 H Calcium 9.6 Troponin T High Sens 11 D Troponin T Hi Sens 2 Hr 12 Radiography Diagnostic Testing: Clinical Impression(s) from Imaging Studies Chest X-Ray 12/20/24 15:50 IMPRESSION: 1. Mild vaguely linear RIGHT basilar airspace has increased slightly, atelectasis or early/mild pneumonia. 2. Additional description as above. Reading Location: [facility] Discharge Plan Triage Chief Complaint: Shortness of Breath Other Complaint: Chest Pain ED Provider: Waqas Hart Dx/Rx/DC Orders Clinical Impression: COPD exacerbation, SOB (shortness of breath), Chest pain Instructions: ED COPD Flare, ED Chest Pain, Uncertain Cause Prescriptions: New prednisone 20 mg tablet 40 mg PO DAILY 7 Days Qty: 14 0RF No Action Spiriva Respimat 2.5 mcg/actuation mist 2 puff inhalation DAILY Qty: 4 11RF (DME) Aerochamber MV Spacer See Rx Instructions .ROUTE .MEDSUPPLY Qty: 1 0RF Rx Instructions: As directed lorazepam [Ativan] 1 mg tablet 1 mg PO TID PRN (Reason: anxiety) furosemide 40 mg tablet 40 mg PO QDAY Qty: 90 3RF carvedilol 25 mg tablet 25 mg PO BID Qty: 120 3RF Rx Instructions: must administer with a meal/food albuterol sulfate 2.5 mg /3 mL (0.083 %) solution for nebulization 2.5 mg continuous nebulization Q6H PRN (Reason: shortness of breath or wheezing) melatonin 3 mg capsule 3 mg PO QHS gabapentin 400 mg capsule 400 mg PO Q6H nitroglycerin 0.4 mg tablet, sublingual 0.4 mg buccal Q5M PRN (Reason: chest pain) sucralfate 1 gram tablet 1 g PO Q8H promethazine 25 mg tablet 25 mg PO PRN PRN (Reason: nausea and vomiting) Xtampza ER 18 mg cap,sprinkl,ER12hr(DONT CRUSH) 18 mg PO BID Patient Comments: [NO ORIGINAL SIG] hydrocodone-acetaminophen 5-325 mg tablet 1 tab PO Q4H Airsupra 90-80 mcg/actuation HFA aerosol inhaler 1 - 2 inh INHALATION BID PRN (Reason: shortness of breath) Patient Comments: [NO ORIGINAL SIG] atorvastatin 40 mg tablet 40 mg PO QHS bisacodyl 5 mg tablet,delayed release (DR/EC) 5 mg PO DAILY PRN (Reason: constipation) Patient Comments: [NO ORIGINAL SIG] polyethylene glycol 3350 17 gram/dose powder 17 g PO BID cholecalciferol (vitamin D3) 125 mcg (5,000 unit) capsule 125 mcg PO DAILY lisinopril 5 mg tablet 5 mg PO DAILY guaifenesin [Mucus Relief ER] 1,200 mg Tablet Extended Release 12hr 1,200 mg PO BID Qty: 30 0RF prednisone 20 mg tablet 20 mg PO BID Qty: 10 0RF doxycycline hyclate 100 mg capsule 100 mg PO BID Qty: 14 0RF albuterol sulfate 90 mcg/actuation HFA aerosol inhaler 2 puff inhalation Q6H MDD 10 puffs PRN (Reason: shortness of breath or wheezing) Qty: 8.5 6RF Rx Instructions: This inhaler must be used with a spacer device. budesonide-formoterol [Symbicort] 160-4.5 mcg/actuation HFA aerosol inhaler 1 puff inhalation BID Qty: 10.2 0RF Primary Care Provider: Gabriel Galvan Referrals: Gabriel Galvan MD [Primary Care Provider] - 3-5 Days Activity Restrictions/Additional Instructions: Use your oxygen. Take the steroid burst. Use your albuterol as directed. Return with increased shortness of breath, new or worsening symptoms. Print Language: Ecuadorean Disposition Disposition: Home, Self Care What to do if you have Problems For any increased pain, shortness of breath, bleeding, nausea or vomiting, chestpain, or any unexpected problems, contact your Primary Care Provider. Call [facility] ([phone]) or report tothe closest Emergency Room. Call 911 if necessary. 12/20/24 1822 Cosigner Signature (if applicable): CC: Dr. Gabriel Galvan MD ~ Signed [facility]04-15-2025 Radiology Diagnostic study note [facility] Imaging Services [address], [place] [address] Chest 1 View (Portable) MR#: [id number] Acct: [id number] Name: MARCIA MASCORRO Rep #: [id number] : 1955 F 69 From: Margarita Bustos MD PCP: Dr. Gabriel Galvan MD Status: RE G ER Study:Chest 1 View (Portable) Date of Exam: 12/20/24 Exam# [id number] Ordering Dr: Waqas Hart MD PROCEDURE: CHEST 1 VIEW (PORTABLE) 12/20/2024 REASON FOR EXAM: CHEST PAIN TECHNIQUE: Frontal view of the chest. COMPARISON: 11/04/2024 FINDINGS: Patient is slightly rotated. Heart: Similar cardiomegaly.. Mediastinum: Grossly similar allowing for rotation. Atherosclerosis. Hiatal hernia. Lungs/pleura: Mild vaguely linear RIGHT basilar airspace disease has increased slightly no sizeablepleural effusion or visible pneumothorax. Bones: Unremarkable. Lines and support devices: None. Other: None. RAD/Chest 1 View (Portable) IMPRESSION: 1. Mild vaguely linear RIGHT basilar airspace has increased slightly, atelectasis or early/mild pneumonia. 2. Additional description as above. Reading Location: [facility] CC: Dr. Waqas Hart MD; Dr. Gabriel Galvan MD ~ Service Consultant: Signed [facility]04-15-2025 Discharge summary Author Waqas Hart [facility] Note Date/Time December 20, 2024 6:2 2pm [facility] Medical Records Department [address] [place] [address] Emergency Department Summary 12/20/24 MR#: [id number] Acct: [id number] Name: MARCIA MASCORRO Rep #:[id number] : 1955 69 From: Waqas Hart MD PCP: Dr. Gabriel Galvan MD Status:RE G ER Location: ED HPI History of Present Illness Chief Complaint: Shortness of Breath Narrative Narrative: 69-year-old female presents with her family because of increasing shortness of breath over the last 2 days. She has a past medical history of COPD and wears oxygen at home. She states she has had to increase her oxygen from 2 L to 3 L, and additionally she reports that yesterday she had a pulse ox in the 70s to 80s. She does continue to smoke cigarettes. Today, she was seen by her pain management doctor and her family was concerned about her breathing issues over the last 2 days so they state that they brought her to the emergency department for evaluation. She denies any fevers or chills but states she has had occasional cough. No leg swelling. She also feels lightheaded. She told triage that she was having chest pain with radiation to the left shoulder as well. [facility] Medical History Chronic pain Kidney disease Asthma Irregular heart beat Congestive heart failure (CHF) TIA (transient ischemic attack) Wears glasses Post-menopausal Arthritis History of renal disease High cholesterol DVT (deep venous thrombosis) Easy bruising Excessive bleeding Back pain Injury of back History of ulceration Difficulty chewing Gastric reflux Shortness of breath on exertion Hoarseness Chronic cough Leg cramps History of pain when walking History of edema History of echocardiogram History of stress test Cardiology follow-up encounter History of CHF (congestive heart failure) History of irregular heartbeat Chest pain Bullous emphysema COPD with asthma Esophagitis, unspecified without bleeding Unspecified combined 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 Other chronic pain Elevated troponin Sustained SVT Depression Osteoporosis Kidney stones Smoker Myocardial infarct History of non-ST elevation myocardial infarction (NSTEMI) (09/01/21) Essential hypertension Old anterior wall myocardial infarction Ischemic cardiomyopathy Opiate dependence Anxiety and depression TIA (transient ischemic attack) Obesity (BMI 30.0-34.9) EVELYN (obstructive sleep apnea) Personal history of transient ischemic attack (TIA), and cerebral infarction without residual deficits COPD (chronic obstructive pulmonary disease) Calculus of left kidney GERD (gastroesophageal reflux disease) Hyperlipidemia Atherosclerotic heart disease of [place] coronary artery without angina pectoris Tobacco abuse Home Medications ?Medication ?Instructions ?Recorded ?Last Taken ?Type inhalational spacing device #1 ea 02/17/23 Unknown Rx (Aerochamber MV spacer) tiotropium bromide 2.5 2 puff inhalation DAILY #4 g sandra 02/17/23 09/27/24 Rx mcg/actuation mist for inhalation (Spiriva Respimat) lorazepam 1 mg tablet (Ativan) 1 mg PO TID PRN anxiety 07/16/23 09/27/24 History gabapentin 400 mg capsule 400 mg PO Q6H 07/29/2309/27 History nitroglycerin 0.4 mg sublingual 0.4 mg buccal Q5M PRN chest pain 07/29/23 Unknown History tablet sucralfate 1 gram tablet 1 g PO Q8H 07/29/23 09/27/24 History albuterol sulfate 2.5 mg/3 mL 2.5 mg continuous nebuli zation Q6H 09/05/23 Unknown History (0.083 %) solution for nebulization PRN shortness of b reath or wheezing melatonin 3 mg capsule 3 mg PO QHS 09/05/23 5 History albuterol 90 mcg-budesonide 80 1 - 2 inh inhalation BI D PRN 09/28/24 09/27/24 History mcg/actuation HFA aerosol inhaler shortness of breath (Airsupra) atorvastatin 40 mg tablet 40 mg PO QHS 09/28/24 History bisacodyl 5 mg tablet,delayed 5 mg PO DAILY PRN consti pation 09/28/24 Unknown History release cholecalciferol (vitamin D3) 125 125 mcg PO DAILY 09/0809/27/24 History mcg (5,000 unit) capsule hydrocodone-acetaminophen 5-325mg 1 tab PO Q4H 5 09/27/24 History 5mg-325mg lisinopril 5 mg tablet 5 mg PO DAILY 09/28/2409/27 History oxycodone myristate 18 mg capsule 18 mg PO BID 5 09/27/24 History sprinkle extended release 12hr(DON'T CRUSH) (Xtampza ER) polyethylene glycol 3350 17 17 g PO BID 09/28/2409/27 History gram/dose oral powder promethazine 25 mg tablet 25 mg PO PRN PRN nausea and 09/28/24 Unknown History vomiting albuterol sulfate 90 mcg/actuation 2 puff inhalation Q 6H PRN 09/30/24 Unknown Rx aerosol inhaler shortness of breath or wheez ing #8.5 grams budesonide-formoterol HFA 160 1 puff inhalation BID #1 0.2 grams 09/30/24 Unknown Rx mcg-4.5 mcg/actuation aerosol inhaler (Symbicort) doxycycline hyclate 100 mg capsule 100 mg PO BID #14 c aps 09/30/24 Unknown Rx guaifenesin 1,200 mg tablet, 1,200 mg PO BID #30 tabs 09/30/24 Unknown Rx extended release 12 hr (Mucus Relief ER) prednisone 20 mg tablet 20 mg PO BID #10 tabs Unknown Rx carvedilol 25 mg tablet 25 mg PO BID #120 tabs 10/04 Unknown Rx furosemide 40 mg tablet 40 mg PO QDAY #90 tabs 10/04 Unknown Rx prednisone 20 mg tablet 40 mg (2 x 20 mg) PO DAILY 7 days 12/20/24 Unknown Rx #14 tabs Allergy/AdvReac Type Severity Reaction Status Date / Time No Known Allergies Allergy Verified 12/20/24 15:46 Family History Mother Hypertension CAD (coronary artery disease) CVA (cerebral vascular accident) Myocardial infarction Grandmother Myocardial infarction Surgical History History of cholecystectomy Hx of esophagogastroduodenoscopy History of cardiac catheterization History of hysterectomy History of left heart catheterization (01/20/22) History of total hysterectomy Hx of appendectomy Social History household members: none Smoking Status: Current some day smoker tobacco type: cigarettes alcohol intake: never substance use type: does not use ROS ROS ED ROS Narrative Constitutional: No fever, no chills. HEENT: No rhinorrhea. Cardiovascular: Positive chest pain. No palpitations. No pedal edema. Respiratory: Occasional cough, positive shortness of breath. Abdominal: No abdominal pain. No nausea. No vomiting. Genitourinary: No dysuria. No hematuria. Musculoskeletal: No myalgias. No arthralgias. Neurologic: No headaches. No dizziness. Positive lightheadedness. EXAM Physical Exam Narrative Exam Narrative: Afebrile. Vital signs noted. Nontoxic-appearing. Cardiovascular examination reveals a regular rate and rhythm, lung sounds are clear to auscultation bilaterally with diminished sounds at the bilateral bases, no rhonchi or wheezing. No appreciable rales. Abdomen is soft and nontender without guarding or rebound. Positive bowel sounds. Neurological examination nonfocal, nonlateralizing. No pedal edema. Const Vital Signs: 12/20/24 15:01 12/20/24 15:04 12/20/24 15:05 Temperature 98.7 F Temperature Source Oral Pulse Rate 80 Respiratory Rate 22 H Respiratory Effort Respiratory Pattern Blood Pressure 164/99 H Blood Pressure Mean 120 Pulse Ox 88 92 95 Oxygen Delivery Method Nasal Cannula Nasal Cannula Nasal Cannula Oxygen Flow Rate (L/min) 3 4 2 12/20/24 15:42 12/20/24 15:46 12/20/24 16:28 Temperature Temperature Source Pulse Rate Respiratory Rate 18 Respiratory Effort Short of Breath Short of Breath Respiratory Pattern Normal Normal Blood Pressure Blood Pressure Mean Pulse Ox Oxygen Delivery Method Oxygen Flow Rate (L/min) 12/20/24 16:36 12/20/24 17:00 12/20/24 18:00 Temperature Temperature Source Pulse Rate 69 74 93 Respiratory Rate 18 18 18 Respiratory Effort Respiratory Pattern Blood Pressure 159/85 H 168/93 H 171/100 H Blood Pressure Mean 109 118 123 Pulse Ox 96 93 93 Oxygen Delivery Method Nasal Cannula Nasal Cannula Nasal Cannula Oxygen Flow Rate (L/min) 2 2 2 12/20/24 18:15 Temperature 97.4 F L Temperature Source Pulse Rate 73 Respiratory Rate 18 Respiratory Effort Respiratory Pattern Blood Pressure 149/77 H Blood Pressure Mean 101 Pulse Ox 96 Oxygen Delivery Method Oxygen Flow Rate (L/min) MDM MDM MDM Narrative Medical decision making narrative: The differential diagnosis includes but not limited to COPD exacerbation versus bronchitis versus pneumonia versus pneumothorax. I have low suspicion clinically for pulmonary embolism as she is not tachycardic. She is satting 95%on 2 L nasal cannula currently. Smoking cessation was discussed. She was administered a DuoNeb aerosolized treatment and Solu-Medrol as well. To help rule out ACS as well, per protocol troponins were ordered by RN. EKG was obtained and interpreted by myself independently as normal sinus rhythm at [address] changes. No STEMI. I reviewed her laboratory work and she has normal white count of 5.0 with hemoglobin normal at 13.1, hematocrit 39.5 with platelet count normal at 183. Coags are negative. Sodium is normal at 141 with potassium of 4.3, BUN of 9 andcreatinine 0.78, glucose is elevated at 117 but anion gap normal at 8. Initial high-sensitivity troponin is 11 with 2-hour being 12. I feel she has been ruledout for ACS with biomarkers. On my individual interpretation of her chest x-ray, there is no gross consolidation or pneumothorax. I reviewed the radiology report which comments on slight increase in her right base atelectasis versus early infiltrate. I do not feel she needs antibiotics as she is not complainingof productive cough, she has no fever or white count here. She was able to ambulate here on 2 L of oxygen. She wears oxygen as needed at home. Her pulse ox remained 91 to 95%. She was told to wear her oxygen more frequently especially if she notices a low pulse ox. She was told that she can increase it to as much as 5 L/min. Additionally, she was told not to smoke on her oxygen and to attempt to quit smoking. At this point in time, I do not feelthat she requires admission or observation. She has albuterol at home that she has been using. I wrote her for steroid burst for the next 7 days that she can strip picker from the pharmacy tomorrow. She is motivated for discharge. Her familyis as well. Return instructions to the emergency department were reviewed. Disposition is discharged home in stable condition. History & Record Review Discussion w/independent historian: Patient and Family Lab Data Attestation: I reviewed the patient's lab results. Labs: Laboratory Results - last 24 hr 12/20/24 12/20/24 15:08 17:22 WBC 5.0 RBC 4.15 L Hgb 13.1 Hct 39.5 MCV 95.2 MCH 31.6 MCHC 33.2 RDW Std Deviation 44.1 H RDW Coeff of Sariah 12.7 Plt Count 183 MPV 9.4 Immature Gran % (Auto) 0.200 Neut % (Auto) 52.8 Lymph % (Auto) 35.8 [place] % (Auto) 7.6 Eos % (Auto) 2.8 Baso % (Auto) 0.8 Absolute Neuts (auto) 2.6 Absolute Lymphs (auto) 1.79 Nucleated RBC % 0 PT 13.1 INR 1.0 Sodium 141 Potassium 4.3 Chloride 102 Carbon Dioxide 30.9 Anion Gap 8 BUN 9 Creatinine 0.78 Est GFR (MDRD) Non-Af 83 BUN/Creatinine Ratio 11.7 Glucose 117 H Calcium 9.6 Troponin T High Sens 11 D Troponin T Hi Sens 2 Hr 12 Radiography Diagnostic Testing: Clinical Impression(s) from Imaging Studies Chest X-Ray 12/20/24 15:50 IMPRESSION: 1. Mild vaguely linear RIGHT basilar airspace has increased slightly, atelectasis or early/mild pneumonia. 2. Additional description as above. Reading Location: [facility] Discharge Plan Triage Chief Complaint: Shortness of Breath Other Complaint: Chest Pain ED Provider: Waqas Hart Dx/Rx/DC Orders Clinical Impression: COPD exacerbation, SOB (shortness of breath), Chest pain Instructions: ED COPD Flare, ED Chest Pain, Uncertain Cause Prescriptions: New prednisone 20 mg tablet 40 mg PO DAILY 7 Days Qty: 14 0RF No Action Spiriva Respimat 2.5 mcg/actuation mist 2 puff inhalation DAILY Qty: 4 11RF (DME) Aerochamber MV Spacer See Rx Instructions .ROUTE .MEDSUPPLY Qty: 1 0RF Rx Instructions: As directed lorazepam [Ativan] 1 mg tablet 1 mg PO TID PRN (Reason: anxiety) furosemide 40 mg tablet 40 mg PO QDAY Qty: 90 3RF carvedilol 25 mg tablet 25 mg PO BID Qty: 120 3RF Rx Instructions: must administer with a meal/food albuterol sulfate 2.5 mg /3 mL (0.083 %) solution for nebulization 2.5 mg continuous nebulization Q6H PRN (Reason: shortness of breath or wheezing) melatonin 3 mg capsule 3 mg PO QHS gabapentin 400 mg capsule 400 mg PO Q6H nitroglycerin 0.4 mg tablet, sublingual 0.4 mg buccal Q5M PRN (Reason: chest pain) sucralfate 1 gram tablet 1 g PO Q8H promethazine 25 mg tablet 25 mg PO PRN PRN (Reason: nausea and vomiting) Xtampza ER 18 mg cap,sprinkl,ER12hr(DONT CRUSH) 18 mg PO BID Patient Comments: [NO ORIGINAL SIG] hydrocodone-acetaminophen 5-325 mg tablet 1 tab PO Q4H Airsupra 90-80 mcg/actuation HFA aerosol inhaler 1 - 2 inh INHALATION BID PRN (Reason: shortness of breath) Patient Comments: [NO ORIGINAL SIG] atorvastatin 40 mg tablet 40 mg PO QHS bisacodyl 5 mg tablet,delayed release (DR/EC) 5 mg PO DAILY PRN (Reason: constipation) Patient Comments: [NO ORIGINAL SIG] polyethylene glycol 3350 17 gram/dose powder 17 g PO BID cholecalciferol (vitamin D3) 125 mcg (5,000 unit) capsule 125 mcg PO DAILY lisinopril 5 mg tablet 5 mg PO DAILY guaifenesin [Mucus Relief ER] 1,200 mg Tablet Extended Release 12hr 1,200 mg PO BID Qty: 30 0RF prednisone 20 mg tablet 20 mg PO BID Qty: 10 0RF doxycycline hyclate 100 mg capsule 100 mg PO BID Qty: 14 0RF albuterol sulfate 90 mcg/actuation HFA aerosol inhaler 2 puff inhalation Q6H MDD 10 puffs PRN (Reason: shortness of breath or wheezing) Qty: 8.5 6RF Rx Instructions: This inhaler must be used with a spacer device. budesonide-formoterol [Symbicort] 160-4.5 mcg/actuation HFA aerosol inhaler 1 puff inhalation BID Qty: 10.2 0RF Primary Care Provider: Gabriel Galvan Referrals: Gabriel Galvan MD [Primary Care Provider] - 3-5 Days Activity Restrictions/Additional Instructions: Use your oxygen. Take the steroid burst. Use your albuterol as directed. Return with increased shortness of breath, new or worsening symptoms. Print Language: Ecuadorean Disposition Disposition: Home, Self Care What to do if you have Problems For any increased pain, shortness of breath, bleeding, nausea or vomiting, chestpain, or any unexpected problems, contact your Primary Care Provider. Call [facility] ([phone]) or report to the closest Emergency Room. Call 911 if necessary. 12/20/24 1822 <Electronically signed by Waqas Hart MD> Cosigner Signature (if applicable): CC: Dr. Gabriel Galvan MD ~ Signed [facility] Work Phone: 1(504) 223-146704-01-2025 NoteHNO ID: [id number] Author: SCOT YORK MA Service: ? Author Type: Grades 1 Thru 6 Visiting Teacher Type: Progress Notes Filed: 12/06/2024 14:30 Note Text: POPULATION HEALTH NAVIGATION OUTREACH Action/FYI Gaps due: AWV DIABETIC RETINAL EXAM Mammo KED LVM, updated notes, sent mcm. Reason for Outreach Care Gap/HCC or Scheduling Wellness Visits Care Gaps due: Medicare Annual Wellness Visit Breast Cancer Screening Diabetic Eye Exam KED Patient Contacted: Unable or unnecessary to reach patient: Left message CloudLock message sent HCC related Updated appointment notes Navigation Signature: Scot York MA December 06, 2024 2:26 [facility]04-01-2025 History of Present illness Narrative* Scot York MA - 12/06/2024 2:26 PM EDT POPULATION HEALTH NAVIGATION OUTREACH Action/FYI Gaps due: AWV DIABETIC RETINAL EXAM Mammo KED LVM, updated notes, sent mcm. Reason for Outreach Care Gap/HCC or Scheduling Wellness Visits Care Gaps due: Medicare Annual Wellness Visit Breast Cancer Screening Diabetic Eye Exam KED Patient Contacted: Unable or unnecessary to reach patient: Left message DataArthart message sent HCC related Updated appointment notes Navigation Signature: Scot York MA December 06, 2024 2:26 PM [facility] NotePatient Outreach (NETNAV) MARCIA MASCORRO ([id number]) 1955 F T Date Time Provider Department 12/06/24 SCOT YORK During your visit today, we recorded the following information about you: Scot York MA 12/06/2024 2:30 PM Signed POPULATION HEALTH NAVIGATION OUTREACH Action/FYI Gaps due: AWV DIABETIC RETINAL EXAM Mammo KED LVM, updated notes, sent mcm. Reason for Outreach Care Gap/HCC or Scheduling Wellness Visits Care Gaps due: Medicare Annual Wellness Visit Breast Cancer Screening Diabetic Eye Exam KED Patient Contacted: Unable or unnecessary to reach patient: Left message MyChart message sent HCC related Updated appointment notes Navigation Signature: Scot York MA December 06, 2024 2:26 PM Allergies As of Date: 12/06/2024 Noted Allergy Reaction CONTRAST DYE (IODINE) 12/20/2023 10 - Anaphylaxis Date Reviewed: 09/14/2024 Reviewed by: Melissa Leon LPN - Fully Assessed Reason for Visit: Population Health Navigation Outreach [3910] Cmt: Yang zimmer Prescriptions as of 12/06/2024 - albuterol-budesonide HFA (AIRSUPRA) 90-80 mcg/actuation inhaler Inhale 2 Puffs as instructed every 2 hours as needed for wheezing/shortness of breath. Do not take more than 12 inhalations in a 24 hour period. - Bisacodyl (DULCOLAX) 5 mg tab Take 1 tablet by mouth once daily as needed for constipation. - DULoxetine (CYMBALTA) 30 mg capsule Take 1 capsule by mouth once daily. - sucralfate (CARAFATE) 100 mg/mL suspension Take 10 mL by mouth four times daily. (take prior to meals and at bedtime) - promethazine (PHENERGAN) 25 mg tablet Take 1 tablet by mouth every 6 hours as needed. - spironolactone (ALDACTONE) 25 mg tablet Take 1 tablet by mouth once daily. - polyethylene glycol 3350 (MIRALAX) 17 gram/dose powder Take 17 g by mouth once daily. Dissolve dose in 4 - 8 ounces of liquid and take as directed. - omeprazole (PRILOSEC) 40 mg capsule Take 1 capsule by mouth once daily. - Nutritional Supplements (OPTIMENTAL) liqd Take 237 mL by mouth once daily. Okay with what insurance covers - Diaper,Brief, Adult,Disposable (DEPEND EASY FIT UNDERGARMENTS) Size Large pull up. Change depends once every 1-2 hrs. Dx incontinence (788.30) Prolapsed bladder (618.01) - atorvastatin (LIPITOR) 40 mg tablet Take 1 tablet by mouth daily at bedtime. - senna-docusate (SENNA PLUS) 8.6-50 mg per tablet Take 1 tablet by mouth every morning AND 1 tablet daily at bedtime. - tiotropium bromide (SPIRIVA RESPIMAT) 2.5 mcg/actuation inhaler Inhale 2 Puffs as instructed once daily. Inhale two puffs once daily. - sodium phosphate-sodium bisphosphate (FLEET) enema 133 mL by RECTAL route as needed for constipation. - ondansetron (ZOFRAN) 4 mg tablet Take 1 tablet by mouth every 8 hours as needed for nausea/vomiting. - magnesium hydroxide (MILK OF MAGNESIA) 400 mg/5 mL suspension Take 30 mL by mouth once daily as needed for constipation. - lisinopril (ZESTRIL) 5 mg tablet Take 1 tablet by mouth once daily. - gabapentin (NEURONTIN) 400 mg capsule Take 1 capsule by mouth three times a day for 180 days. - furosemide (LASIX) 20 mg tablet Take 1 tablet by mouth two times a day. - clopidogrel (PLAVIX) 75 mg tablet Take 1 tablet by mouth once daily. - Cholecalciferol, Vitamin D3, 125 mcg (5,000 unit) cap Take 1 capsule by mouth once daily. - carvedilol (COREG) 6.25 mg tablet Take 1 tablet by mouth two times a day with meals. - benzonatate (TESSALON PERLES) 100 mg capsule Take 1 capsule by mouth three times a day as needed for cough. - melatonin 10 mg tab Take 1 tablet by mouth at bedtime as needed for insomnia. - oxyCODONE myristate (XTAMPZA ER) 27 mg CSpT Take 1 capsule by mouth two times a day. - acetaminophen (TYLENOL) 650 mg suppository 650 mg by RECTAL route every 4 hours as needed. - acetaminophen (TYLENOL) 325 mg tablet Take 650 mg by mouth every 4 hours as needed. - aluminum-magnesium hydroxide-simethicone (MAALOX,MYLANTA,MAG-AL PLUS) 200-200-20 mg/5 mL suspension Take 30 mL by mouth as needed. Problem List As Of Date 12/06/2024 Noted Resolved Essential hypertension, benign [I10] Lumbago [M54.50] 12/30/2005 Symptomatic menopausal or female climacteric st*12/30/2005 Anxiety [F41.9] Depression [F32.A] GERD (gastroesophageal reflux disease) [K21.9] Chronic pain [G89.29] COPD with exacerbation (HCC) [J44.1] 12/07/2023 Routine gynecological examination [Z01.419] 06/05/2014 09/23/2022 Well adult exam [Z00.00] 06/05/2014 09/23/2022 Stress incontinence, female [N39.3] 07/07/2014 Mixed hyperlipidemia [E78.2] 07/10/2014 Bladder prolapse, female, acquired [N81.10] 10/04/2014 Diverticulosis [K57.90] 03/20/2015 Smoker [F17.200] 12/28/2015 Epigastric pain [R10.13] 04/16/2016 04/16/2016 Colon cancer screening [Z12.11] 04/16/2016 04/16/2016 (more content not included)...[facility]03-17-2025 NoteHNO ID: [id number] Author: PERLA ALVARADO CPhT Service: ? Author Type: Pourer Bull Ladle Type: Progress Notes Filed: 11/21/2024 11:43 Note Text: Patient is identified through a medication adherence outreach initiative based on pharmacy claims data from: [employer] Medication Adherence Category: Hypertension Statins First Review Attribution Status: Correct Attribution Medication(s) Lisinopril 5 mg 1 tab daily Due 11/15/24 last filled 10/15/24 for 30 ds Medication Status per portal/Epic Reconcile Dispense: Filled on time - On or before next fill date Date Filled (MM/DD): 11/12 Day Supply: 30 Medication Status per Profile Review: No issues per profile review Atorvastatin 40 mg 1 tab daily Due 11/15/24 last filled 10/15/24 for 30 ds Medication Status per portal/Epic Reconcile Dispense: Filled on time - On or before next fill date Date Filled (MM/DD): 11/12 Day Supply: 30 Medication Status per Profile Review: No issues per profile review Patient appropriate for outreach? No Reason patient not appropriate for outreach:Patient filled on time / no adherence concerns to be addressed Perla Alvarado CPhT [facility] History of Present illness Narrative* Perla Alvarado CPhT - 11/21/2024 11:39 AM EDT Patient is identified through a medication adherence outreach initiative based on pharmacy claims data from: [employer] Medication Adherence Category: Hypertension Statins First Review Attribution Status: Correct Attribution Medication(s) Lisinopril 5 mg 1 tab daily Due 11/15/24 last filled 10/15/24 for 30 ds Medication Status per portal/Epic Reconcile Dispense: Filled on time - On or before next fill date Date Filled (MM/DD): 11/12 Day Supply: 30 Medication Status per Profile Review: No issues per profile review Atorvastatin 40 mg 1 tab daily Due 11/15/24 last filled 10/15/24 for 30 ds Medication Status per portal/Epic Reconcile Dispense: Filled on time - On or before next fill date Date Filled (MM/DD): 11/12 Day Supply: 30 Medication Status per Profile Review: No issues per profile review Patient appropriate for outreach? No Reason patient not appropriate for outreach:Patient filled on time / no adherence concerns to be addressed Perla Alvarado CPhT Value [facility] Care Pharmacy Team documented in [facility] NotePatient Outreach (PHPOHE) MARCIA MASCORRO ([id number]) 1955 F CHT Date Time Provider Department 11/21/24 GABRIEL GALVAN PHPOHEarl During your visit today, we recorded the following information about you: Perla Alvarado CPhT 11/21/2024 11:43 AM Signed Patient is identified through a medication adherence outreach initiative based on pharmacy claims data from: [employer] Medication Adherence Category: Hypertension Statins First Review Attribution Status: Correct Attribution Medication(s) Lisinopril 5 mg 1 tab daily Due 11/15/24 last filled 10/15/24 for 30 ds Medication Status per portal/Epic Reconcile Dispense: Filled on time - On or before next fill date Date Filled (MM/DD): 11/12 Day Supply: 30 Medication Status per Profile Review: No issues per profile review Atorvastatin 40 mg 1 tab daily Due 11/15/24 last filled 10/15/24 for 30 ds Medication Status per portal/Epic Reconcile Dispense: Filled on time - On or before next fill date Date Filled (MM/DD): 11/12 Day Supply: 30 Medication Status per Profile Review: No issues per profile review Patient appropriate for outreach? No Reason patient not appropriate for outreach:Patient filled on time / no adherence concerns to be addressed Perla Alvarado CPhT [facility] Care Pharmacy Team Allergies As of Date: 11/21/2024 Noted Allergy Reaction CONTRAST DYE (IODINE) 12/20/2023 10 - Anaphylaxis Date Reviewed: 09/14/2024 Reviewed by: Melissa Leon LPN - Fully Assessed Reason for Visit: Allied Health Visit [5] Cmt: Medication Adherence Outreach Prescriptions as of 11/21/2024 - albuterol-budesonide HFA (AIRSUPRA) 90-80 mcg/actuation inhaler Inhale 2 Puffs as instructed every 2 hours as needed for wheezing/shortness of breath. Do not take more than 12 inhalations in a 24 hour period. - Bisacodyl (DULCOLAX) 5 mg tab Take 1 tablet by mouth once daily as needed for constipation. - DULoxetine (CYMBALTA) 30 mg capsule Take 1 capsule by mouth once daily. - sucralfate (CARAFATE) 100 mg/mL suspension Take 10 mL by mouth four times daily. (take prior to meals and at bedtime) - promethazine (PHENERGAN) 25 mg tablet Take 1 tablet by mouth every 6 hours as needed. - spironolactone (ALDACTONE) 25 mg tablet Take 1 tablet by mouth once daily. - polyethylene glycol 3350 (MIRALAX) 17 gram/dose powder Take 17 g by mouth once daily. Dissolve dose in 4 - 8 ounces of liquid and take as directed. - omeprazole (PRILOSEC) 40 mg capsule Take 1 capsule by mouth once daily. - Nutritional Supplements (OPTIMENTAL) liqd Take 237 mL by mouth once daily. Okay with what insurance covers - Diaper,Brief, Adult,Disposable (DEPEND EASY FIT UNDERGARMENTS) Size Large pull up. Change depends once every 1-2 hrs. Dx incontinence (788.30) Prolapsed bladder (618.01) - atorvastatin (LIPITOR) 40 mg tablet Take 1 tablet by mouth daily at bedtime. - senna-docusate (SENNA PLUS) 8.6-50 mg per tablet Take 1 tablet by mouth every morning AND 1 tablet daily at bedtime. - tiotropium bromide (SPIRIVA RESPIMAT) 2.5 mcg/actuation inhaler Inhale 2 Puffs as instructed once daily. Inhale two puffs once daily. - sodium phosphate-sodium bisphosphate (FLEET) enema 133 mL by RECTAL route as needed for constipation. - ondansetron (ZOFRAN) 4 mg tablet Take 1 tablet by mouth every 8 hours as needed for nausea/vomiting. - magnesium hydroxide (MILK OF MAGNESIA) 400 mg/5 mL suspension Take 30 mL by mouth once daily as needed for constipation. - lisinopril (ZESTRIL) 5 mg tablet Take 1 tablet by mouth once daily. - gabapentin (NEURONTIN) 400 mg capsule Take 1 capsule by mouth three times a day for 180 days. - furosemide (LASIX) 20 mg tablet Take 1 tablet by mouth two times a day. - clopidogrel (PLAVIX) 75 mg tablet Take 1 tablet by mouth once daily. - Cholecalciferol, Vitamin D3, 125 mcg (5,000 unit) cap Take 1 capsule by mouth once daily. - carvedilol (COREG) 6.25 mg tablet Take 1 tablet by mouth two times a day with meals. - benzonatate (TESSALON PERLES) 100 mg capsule Take 1 capsule by mouth three times a day as needed for cough. - melatonin 10 mg tab Take 1 tablet by mouth at bedtime as needed for insomnia. - oxyCODONE myristate (XTAMPZA ER) 27 mg CSpT Take 1 capsule by mouth two times a day. - acetaminophen (TYLENOL) 650 mg suppository 650 mg by RECTAL route every 4 hours as needed. - acetaminophen (TYLENOL) 325 mg tablet Take 650 mg by mouth every 4 hours as needed. - aluminum-magnesium hydroxide-simethicone (MAALOX,MYLANTA,MAG-AL PLUS) 200-200-20 mg/5 mL suspension Take 30 mL by mouth as needed. Problem List As Of Date 11/21/2024 Noted Resolved Essential hypertension, benign [I10] Lumbago [M54.50] 12/30/2005 Symptomatic menopausal or female climacteric st*12/30/2005 Anxiety [F41.9] Depression [F32.A] GERD (gastroesophageal reflux disease) [K21.9] Chr (more content not included)...[facility]03-12-2025 Telephone encounter Note* Telephone Encounter - Marisa Mcdermott LPN - 11/16/2024 11:03 AM EDT Completed form has been faxed back. [facility]03-12-2025 Miscellaneous Notes* Telephone Encounter - Marisa Mcdermott LPN - 11/16/2024 11:03 AM EDT Completed form has been faxed back. * Telephone Encounter - Peyton Lindo MA - 11/14/2024 4:22 PM EDT Form received and given to pcp to sign Peyton Lindo MA * Telephone Encounter - Elsy Sanz RN - 11/14/2024 2:43 PM EDT Rajiv blue from [facility] and states she will be faxing over a form for PCP to review andcomplete for patient's incontinence supplies. Elsy Sanz RN documented in this encounterC[facility]03-[facility]25 Telephone encounter Note * Telephone Encounter - Peyton Lindo MA - 11/14/2024 4:22 PM EDT Form received and given to pcp to sign Peyton Lindo MA [facility]03-10-2025 Telephone encounter Note* Telephone Encounter - Elsy Sanz RN - 11/14/2024 2:43 PM EDT Rajiv mirza from [facility] and states she will be faxing over a form for PCP to review andcomplete for patient's incontinence supplies. Elsy Sanz RN [facility]02-19-2025 NoteHNO ID: [id number] Author: BIMAL GONZALEZ RN Service: ? Author Type: Registered Nurse Type: Progress Notes Filed: 10/26/2024 13:52 Note Text: Transitional Care Management (TCM) Follow-Up Note PCP Update / Actionable Items N/A - No specialty updates needed Patient Source: [id number] (OON) Discharge Outreach Summary: Spoke with patient ,states is feeling, bad, having trouble with insurance over renewal of pain medication, reach out to Pain Management waiting for call back Cough getting looser O2 2L NC, as needed Wheezing, comes and goes, have chills Denies fever Nausea all the time, esophagus have to be open every 6 months, have hernia GI aware Appetite every things goes down hurts but she has an appettite are hydrating, can not afford protein shakes and insurance will not pay for it Voiding and without difficulty, Constipation all the time have meds for that Ambulating up ad kathy, have neuropathy really bad Fatigue very, do not sleep very well Wilman feet swelling elevate sometimes, do not have compression Denies questions, concerns regarding medications, self care , no issues, stable Contact: Contact made with patient: Yes Spoke to: [facility] Validation: Validated the person spoken to is actively involved in the patient's care. The patient was identified by Name and Date of . I'd like to get an update on how you're doing since our last phone call. Is now a good time to talk? Yes Symptoms: Are you feeling about the same, better or worse since leaving the hospital? Same Weekly Outreach: 3rd Outreach (Reminder to complete appropriate education topics with the patient.) Medications: Do you have any questions about taking your medications, including which medications you should be on, or do you need refills on your medications? No Patient Questions / Concerns: Do you have any questions related to your discharge? No Appointment / TCM Follow-Up: Have you had a follow-up visit with your Primary Care Provider or Specialist since you were discharged? Yes Do you need any assistance with scheduling or changing your follow-up appointments? Patient already has an appointment scheduled EDUCATION: N/A Bimal Gonzalez RN October 26, 2024 1:51 [facility]02-19-2025 History of Present illness Narrative* Bimal Gonzalez, RN - 10/26/2024 1:28 PM EST Transitional Care Management (TCM) Follow-Up Note PCP Update / Actionable Items N/A - No specialty updates needed Patient Source: Iir-di-Jcceexd (OON) Discharge Outreach Summary: Spoke with patient ,states is feeling, bad, having trouble with insurance over renewal of pain medication, reach out to Pain Management waiting for call back Cough getting looser O2 2L NC, as needed Wheezing, comes and goes, have chills Denies fever Nausea all the time, esophagus have to be open every 6 months, have hernia GI aware Appetite every things goes down hurts but she has an appettite are hydrating, can not afford protein shakes and insurance will not pay for it Voiding and without difficulty, Constipation all the time have meds for that Ambulating up ad kathy, have neuropathy really bad Fatigue very, do not sleep very well Wilman feet swelling elevate sometimes, do not have compression Denies questions, concerns regarding medications, self care , no issues, stable Contact: Contact made with patient: Yes Spoke to: [facility] Validation: Validated the person spoken to is actively involved in the patient's care. The patient was identified by Name and Date of . I'd like to get an update on how you're doing since our last phone call. Is now a good time to talk? Yes Symptoms: Are you feeling about the same, better or worse since leaving the hospital? Same Weekly Outreach: 3rd Outreach (Reminder to complete appropriate education topics with the patient.) Medications: Do you have any questions about taking your medications, including which medications you should be on, or do you need refills on your medications? No Patient Questions / Concerns: Do you have any questions related to your discharge? No Appointment / TCM Follow-Up: Have you had a follow-up visit with your Primary Care Provider or Specialist since you were discharged? Yes Do you need any assistance with scheduling or changing your follow-up appointments? Patient alreadyhas an appointment scheduled EDUCATION: N/A Bimal Gonzalez RN October 26, 2024 1:51 PM [facility] NotePatient Outreach ([facility]) MARCIA MASCORRO ([id number]) 1955 F [facility] Date Time Provider Department 10/26/24 BIMAL GONZALEZ [facility] During your visit today, we recorded the following information about you: Bimal Gonzalez RN 10/26/2024 1:52 PM Signed Transitional Care Management (TCM) Follow-Up Note PCP Update / Actionable Items N/A - No specialty updates needed Patient Source: Qvv-uu-Qfwxchc (OON) Discharge Outreach Summary: Spoke with patient ,states is feeling, bad, having trouble with insurance over renewal of pain medication, reach out to Pain Management waiting for call back Cough getting looser O2 2L NC, as needed Wheezing, comes and goes, have chills Denies fever Nausea all the time, esophagus have to be open every 6 months, have hernia GI aware Appetite every things goes down hurts but she has an appettite are hydrating, can not afford protein shakes and insurance will not pay for it Voiding and without difficulty, Constipation all the time have meds for that Ambulating up ad kathy, have neuropathy really bad Fatigue very, do not sleep very well Wilman feet swelling elevate sometimes, do not have compression Denies questions, concerns regarding medications, self care , no issues, stable Contact: Contact made with patient: Yes Spoke to: [facility] Validation: Validated the person spoken to is actively involved in the patient's care. The patient was identified by Name and Date of . I'd like to get an update on how you're doing since our last phone call. Is now a good time to talk? Yes Symptoms: Are you feeling about the same, better or worse since leaving the hospital? Same Weekly Outreach: 3rd Outreach (Reminder to complete appropriate education topics with the patient.) Medications: Do you have any questions about taking your medications, including which medications you should be on, or do you need refills on your medications? No Patient Questions / Concerns: Do you have any questions related to your discharge? No Appointment / TCM Follow-Up: Have you had a follow-up visit with your Primary Care Provider or Specialist since you were discharged? Yes Do you need any assistance with scheduling or changing your follow-up appointments? Patient already has an appointment scheduled EDUCATION: N/A Bimal Gonzalez RN October 26, 2024 1:51 PM Allergies As of Date: 10/26/2024 Noted Allergy Reaction CONTRAST DYE (IODINE) 12/20/2023 10 - Anaphylaxis Date Reviewed: 09/14/2024 Reviewed by: Melissa Leon LPN - Fully Assessed Reason for Visit: Transition Of Care [4074] Cmt: TCM [facility]- Follow-up Day 26 Prescriptions as of 10/26/2024 - albuterol-budesonide HFA (AIRSUPRA) 90-80 mcg/actuation inhaler Inhale 2 Puffs as instructed every 2 hours as needed for wheezing/shortness of breath. Do not take more than 12 inhalations in a 24 hour period. - Bisacodyl (DULCOLAX) 5 mg tab Take 1 tablet by mouth once daily as needed for constipation. - DULoxetine (CYMBALTA) 30 mg capsule Take 1 capsule by mouth once daily. - sucralfate (CARAFATE) 100 mg/mL suspension Take 10 mL by mouth four times daily. (take prior to meals and at bedtime) - promethazine (PHENERGAN) 25 mg tablet Take 1 tablet by mouth every 6 hours as needed. - spironolactone (ALDACTONE) 25 mg tablet Take 1 tablet by mouth once daily. - polyethylene glycol 3350 (MIRALAX) 17 gram/dose powder Take 17 g by mouth once daily. Dissolve dose in 4 - 8 ounces of liquid and take as directed. - omeprazole (PRILOSEC) 40 mg capsule Take 1 capsule by mouth once daily. - Nutritional Supplements (OPTIMENTAL) liqd Take 237 mL by mouth once daily. Okay with what insurance covers - Diaper,Brief, Adult,Disposable (DEPEND EASY FIT UNDERGARMENTS) Size Large pull up. Change depends once every 1-2 hrs. Dx incontinence (788.30) Prolapsed bladder (618.01) - atorvastatin (LIPITOR) 40 mg tablet Take 1 tablet by mouth daily at bedtime. - senna-docusate (SENNA PLUS) 8.6-50 mg per tablet Take 1 tablet by mouth every morning AND 1 tablet daily at bedtime. - tiotropium bromide (SPIRIVA RESPIMAT) 2.5 mcg/actuation inhaler Inhale 2 Puffs as instructed once daily. Inhale two puffs once daily. - sodium phosphate-sodium bisphosphate (FLEET) enema 133 mL by RECTAL route as needed for constipation. - ondansetron (ZOFRAN) 4 mg tablet Take 1 tablet by mouth every 8 hours as needed for nausea/vomiting. - magnesium hydroxide (MILK OF MAGNESIA) 400 mg/5 mL suspension Take 30 mL by mouth once daily as needed for constipation. - lisinopril (ZESTRIL) 5 mg tablet Take 1 tablet by mouth once daily. - gabapentin (NEURONTIN) 400 mg capsule Take 1 capsule by mouth three times a day for 180 days. - furosemide (LASIX) 20 mg tablet Take 1 tablet by mouth two times a day. - clopidogrel (PLAVI (more content not included)...[facility] 10-12-2024 Telephone encounter Note* Telephone Encounter - Rajiv Hendricks 10/12/2024 4:29 PM EST Spoke with daughter to confirm EGD procedure date & with my phone number [phone]. [facility]02-[facility] Miscellaneous Notes* Telephone Encounter - Rajiv Hendricks - 10/12/2024 4:29 PM EST Spoke with daughter to confirm EGD procedure date & with my phone number [phone]. documented in this encounterC[facility]25 NoteHNO ID: [id number] Author: BIMAL GONZALEZ RN Service: ? Author Type: Registered Nurse Type: Progress Notes Filed: 10/10/2024 15:19 Note Text: Transitional Care Management (TCM) Follow-Up Note PCP Update / Actionable Items N/A - No specialty updates needed Patient Source: Nef-jh-Wzfgxkr (OON) Discharge Outreach Summary: Spoke with daughter/Marleny,states ;pt is feeling better, O2 2L NC, stated pt is still smoking Cough wheezing, chills is better Denies fever, n/v Appetite - eating decrease, not new, have something going on with stomach, like a bad hernia are seeing GI for that, are hydrating Voiding and bm without difficulty, BM 10/09/24 Ambulating up ad kathy Fatigue always Wilman le edema yes and elevating,, do not have compression Denies questions, concerns regarding medications, self care , no issues, stable Future Appts 10/11 Radio Mammo Wstr 10/11 intm Wstr 10/17 Pulm Lab/Pulm Wstr 10/18 Sergio Main 10/19 Hand Endoscopy Patient discharged from [facility] Discharge date: 09/30/24 Admitted for: Cough and shortness of breath COPD exacerbation Readmission Risk: n/a Value-Based Contract: Yang DIOR Contact: Contact made with patient: Yes Spoke to: Patient Validation: Validated the person spoken to is actively involved in the patient's care. The patient was identified by Name and Date of . I'd like to get an update on how you're doing since our last phone call. Is now a good time to talk? Yes Symptoms: Are you feeling about the same, better or worse since leaving the hospital? Better Weekly Outreach: 1st Outreach Medications: Do you have any questions about taking your medications, including which medications you should be on, or do you need refills on your medications? No Patient Questions / Concerns: Do you have any questions related to your discharge? No Appointment / TCM Follow-Up: Have you had a follow-up visit with your Primary Care Provider or Specialist since you were discharged? No Do you need any assistance with scheduling or changing your follow-up appointments? Patient already has an appointment scheduled Education N/A Targets addressed / completed during outreach: Prevent readmission for 30 days Outreach Outcome: Continue TCM Outreach for remainder of 30 days Care Management partners utilized: N/A Bimal Gonzalez RN October 10, 2024 3:15 [facility]02-03-2025 History of Present illness Narrative* Bimal Gonzalez RN - 10/10/2024 3:08 PM EST Transitional Care Management (TCM) Follow-Up Note PCP Update / Actionable Items N/A - No specialty updates needed Patient Source: Gws-ul-Cidgscg (OON) Discharge Outreach Summary: Spoke with daughter/Marleny,states ;pt is feeling better, O2 2L NC, stated pt is still smoking Cough wheezing, chills is better Denies fever, n/v Appetite - eating decrease, not new, have something going on with stomach, like a bad hernia are seeing GI for that, are hydrating Voiding and bm without difficulty, BM 10/09/24 Ambulating up ad kathy Fatigue always Wilman le edema yes and elevating,, do not have compression Denies questions, concerns regarding medications, self care , no issues, stable Future Appts 10/11 Radio Mammo Wstr 10/11 intm Wstr 10/17 Pulm Lab/Pulm Wstr 10/18 Sergio Main 10/19 Hand Endoscopy Patient discharged from [facility] Discharge date: 09/30/24 Admitted for: Cough and shortness of breath COPD exacerbation Readmission Risk: n/a Value-Based Contract: Yang DIOR Contact: Contact made with patient: Yes Spoke to: Patient Validation: Validated the person spoken to is actively involved in the patient's care. The patient was identified by Name and Date of . I'd like to get an update on how you're doing since our last phone call. Is now a good time to talk? Yes Symptoms: Are you feeling about the same, better or worse since leaving the hospital? Better Weekly Outreach: 1st Outreach Medications: Do you have any questions about taking your medications, including which medications you should be on, or do you need refills on your medications? No Patient Questions / Concerns: Do you have any questions related to your discharge? No Appointment / TCM Follow-Up: Have you had a follow-up visit with your Primary Care Provider or Specialist since you were discharged? No Do you need any assistance with scheduling or changing your follow-up appointments? Patient alreadyhas an appointment scheduled Education N/A Targets addressed / completed during outreach: Prevent readmission for 30 days Outreach Outcome: Continue TCM Outreach for remainder of 30 days Care Management partners utilized: N/A Bimal Gonzalez RN October 10, 2024 3:15 PM documented in this encounterC[facility] Telephone encounter Note * Telephone Encounter - Savannah Cruz MSW - 10/10/2024 11:27 AM EST Sw left message for patient daughter to return Sw call to discuss transportation assistance needs. [facility]02-[facility] Miscellaneous Notes* Telephone Encounter - Savannah Cruz MSW - 10/10/2024 11:27 AM EST Sw left message for patient daughter to return Sw call to discuss transportation assistance needs. * Telephone Encounter - Savannah Cruz MSW - 10/06/2024 9:49 AM EST Sw left 2nd message for patient daughter to return Sw call to discuss transportation resource needs. * Telephone Encounter - Savannah Cruz MSW - 10/04/2024 10:36 AM EST Sw left message for patient daughter to return Sw call to discuss transportation assistance needs. documented in this encounterC[facility] NotePatient Outreach ([facility]) MARCIA MASCORRO ([id number]) 1955 F T Date Time Provider Department 10/10/24 BIMAL GONZALEZ [facility] During your visit today, we recorded the following information about you: Bimal Gonzalez, RN 10/10/2024 3:19 PM Signed Transitional Care Management (TCM) Follow-Up Note PCP Update / Actionable Items N/A - No specialty updates needed Patient Source: Btd-cc-Ldhzojl (OON) Discharge Outreach Summary: Spoke with daughter/Marleny,states ;pt is feeling better, O2 2L NC, stated pt is still smoking Cough wheezing, chills is better Denies fever, n/v Appetite - eating decrease, not new, have something going on with stomach, like a bad hernia are seeing GI for that, are hydrating Voiding and bm without difficulty, BM 10/09/24 Ambulating up ad kathy Fatigue always Wilman le edema yes and elevating,, do not have compression Denies questions, concerns regarding medications, self care , no issues, stable Future Appts 10/11 Radio Mammo Wstr 10/11 intm Wstr 10/17 Pulm Lab/Pulm Wstr 10/18 Sergio Main 10/19 Hand Endoscopy Patient discharged from [facility] Discharge date: 09/30/24 Admitted for: Cough and shortness of breath COPD exacerbation Readmission Risk: n/a Value-Based Contract: Yang DIOR Contact: Contact made with patient: Yes Spoke to: Patient Validation: Validated the person spoken to is actively involved in the patient's care. The patient was identified by Name and Date of . I'd like to get an update on how you're doing since our last phone call. Is now a good time to talk? Yes Symptoms: Are you feeling about the same, better or worse since leaving the hospital? Better Weekly Outreach: 1st Outreach Medications: Do you have any questions about taking your medications, including which medications you should be on, or do you need refills on your medications? No Patient Questions / Concerns: Do you have any questions related to your discharge? No Appointment / TCM Follow-Up: Have you had a follow-up visit with your Primary Care Provider or Specialist since you were discharged? No Do you need any assistance with scheduling or changing your follow-up appointments? Patient already has an appointment scheduled Education N/A Targets addressed / completed during outreach: Prevent readmission for 30 days Outreach Outcome: Continue TCM Outreach for remainder of 30 days Care Management partners utilized: N/A Bimal Gonzalez RN October 10, 2024 3:15 PM Allergies As of Date: 10/10/2024 Noted Allergy Reaction CONTRAST DYE (IODINE) 12/20/2023 10 - Anaphylaxis Date Reviewed: 09/14/2024 Reviewed by: Melissa Leon LPN - Fully Assessed Reason for Visit: Transition Of Care [5104] Cmt: [facility] Folow-up Day 10 Prescriptions as of 10/10/2024 - albuterol-budesonide HFA (AIRSUPRA) 90-80 mcg/actuation inhaler Inhale 2 Puffs as instructed every 2 hours as needed for wheezing/shortness of breath. Do not take more than 12 inhalations in a 24 hour period. - Bisacodyl (DULCOLAX) 5 mg tab Take 1 tablet by mouth once daily as needed for constipation. - DULoxetine (CYMBALTA) 30 mg capsule Take 1 capsule by mouth once daily. - sucralfate (CARAFATE) 100 mg/mL suspension Take 10 mL by mouth four times daily. (take prior to meals and at bedtime) - promethazine (PHENERGAN) 25 mg tablet Take 1 tablet by mouth every 6 hours as needed. - spironolactone (ALDACTONE) 25 mg tablet Take 1 tablet by mouth once daily. - polyethylene glycol 3350 (MIRALAX) 17 gram/dose powder Take 17 g by mouth once daily. Dissolve dose in 4 - 8 ounces of liquid and take as directed. - omeprazole (PRILOSEC) 40 mg capsule Take 1 capsule by mouth once daily. - Nutritional Supplements (OPTIMENTAL) liqd Take 237 mL by mouth once daily. Okay with what insurance covers - Diaper,Brief, Adult,Disposable (DEPEND EASY FIT UNDERGARMENTS) Size Large pull up. Change depends once every 1-2 hrs. Dx incontinence (788.30) Prolapsed bladder (618.01) - atorvastatin (LIPITOR) 40 mg tablet Take 1 tablet by mouth daily at bedtime. - senna-docusate (SENNA PLUS) 8.6-50 mg per tablet Take 1 tablet by mouth every morning AND 1 tablet daily at bedtime. - tiotropium bromide (SPIRIVA RESPIMAT) 2.5 mcg/actuation inhaler Inhale 2 Puffs as instructed once daily. Inhale two puffs once daily. - sodium phosphate-sodium bisphosphate (FLEET) enema 133 mL by RECTAL route as needed for constipation. - ondansetron (ZOFRAN) 4 mg tablet Take 1 tablet by mouth every 8 hours as needed for nausea/vomiting. - magnesium hydroxide (MILK OF MAGNESIA) 400 mg/5 mL suspension Take 30 mL by mouth once daily as needed for constipation. - lisinopril (ZESTRIL) 5 mg tablet Take 1 tablet by mouth once daily. - gabapentin (NEURONTIN) 400 mg capsule Take 1 capsule by mouth three (more content not included)...[facility]02-02-2025 Telephone encounter Note* Telephone Encounter - Gabriel Galvan MD - 10/09/2024 4:43 PM EST See Aníbalt reply Has 2/4 follow up so will discuss cardiology appointment then [facility]02-[facility] Miscellaneous Notes* Telephone Encounter - Gabriel Galvan MD - 10/09/2024 4:43 PM EST See Aníbalt reply Has 10/11 follow up so will discuss cardiology appointment then documented in this encounterC[facility]01[facility]30-2025 Telephone encounter Note * Telephone Encounter - Savannah Cruz MSW - 10/06/2024 9:49 AM EST Sw left 2nd message for patient daughter to return Sw call to discuss transportation resource needs. [facility]01-[facility] Telephone encounter Note* Telephone Encounter - Savannah Cruz MSW - 10/04/2024 10:36 AM EST Sw left message for patient daughter to return Sw call to discuss transportation assistance needs. [facility]01-27-[facility]25 NoteHNO ID: [id number] Author: SALUD FOSTER, ? Service: ? Author Type: Patient Regulation Supervisor Type: Progress Notes Filed: 10/03/2024 12:21 Note Text: POPULATION HEALTH NAVIGATION OUTREACH Action/FYI Scheduled TCM appt 10-11-2023 [facility] elible until 10-14-2024 Patient discharged from [facility] Discharge date: 09/30/24 Admitted for: Cough and shortness of breath COPD exacerbation Readmission Risk: n/a Reason for Outreach Community Monitoring/Network Navigator Pools AND Phone Line: CM Pool Patient Contacted: Spoke to patient/parent/or legal guardian Patient identified by name and : Yes Community Monitoring/Network Navigator Pools AND Phone Line actions taken: Patient scheduled: Hospital Follow-up: Low risk <9% 10/11/2024 in RADIO MAMMO [facility] with SCREEN MAMMO [facility] - Encounter for screening mammogram for breast cancer [Z12.31] 10/11/2024 in INTM [facility] WSTR with GABRIEL GALVAN - hospital follow up 10/17/2024 in PULM LAB [facility] WSTR with PULM LAB [facility] WSTR - copd 10/17/2024 in PULM LAB [facility] with PULM LAB [facility] - [facility] - copd 10/18/2024 in [facility] with NURSE GI LAB I - MANOMETRY ESOPHAGEAL 10/19/2024 in HAND ENDOSCOPY with SHRUTI ONTIVEROS - Hiatal hernia [K44.9] Navigation Signature: Salud Foster Population Health Navigator October 03, 2024 12:20 [facility]01-27-2025 History of Present illness Narrative* Salud Foster - 10/03/2024 12:20 PM EST POPULATION HEALTH NAVIGATION OUTREACH Action/FYI Scheduled TCM appt 10-11-2023 TCM eliigble until 10-14-2024 Patient discharged from [facility] Discharge date: 09/30/24 Admitted for: Cough and shortness of breath COPD exacerbation Readmission Risk: n/a Reason for Outreach Community Monitoring/Network Navigator Pools & Phone Line: CM Pool Patient Contacted: Spoke to patient/parent/or legal guardian Patient identified by name and : Yes Community Monitoring/Network Navigator Pools & Phone Line actions taken: Patient scheduled: Hospital Follow-up: Low risk <9% 10/11/2024 in RADIO MAMMO [facility] with SCREEN MAMMO [facility] - Encounter for screening mammogram forbreast cancer [Z12.31] [facility] G[facility]AN hospital follow up 10/17/2024 in PULM LAB [facility] with PULM LAB [facility] W[facility] - copd 10/17/2024 in PULM LAB [facility] with PULM LAB [facility] - [facility] PEY[facility] - copd 10/18/2024 in [facility] with NURSE GI LAB I - MANOMETRY ESOPHAGEAL 10/19/2024 in HAND ENDOSCOPY with SHRUTI ONTIVEROS - Hiatal hernia [K44.9] Navigation Signature: Salud Foster Population Health Navigator October 03, 2024 12:20 PM * Bimla Gonzalez RN - 10/03/2024 11:24 AM EST Transition Care Management (TCM) Initial Outreach PCP Update / Actionable Items Patient daughterKacy is requesting a walker. will route Patient need help with SW, will route OON No risk Score Follow-up within 14 days 10/14/24 HRTIC TCM Home Visit Referral Source of Stratification: [facility] Admission Status: Discharged Readmission Risk Score: n/a Patient's zip code: [address] Is zip code within program service area: No Patient meets program referral criteria: No Patient does not qualify for High Risk TCM Home Visit program due to: Readmission Risk Score does not meet criteria Disposition: Patient does not qualify for HRTIC, will provide TCM outreach follow-up for 30-days Patient Source: [id number] (OON) Discharge Outreach Summary: Spoke with daughter/Marleny Pat states ;pt is feeling better, feel the pt need a walker, will route to PCP , need help with transportation, will route to SW O2 2L NC, stated pt is still smoking Cough dry also wheezing and some chills Denies fever, n/v Appetite - eating decrease, not new, have something going on with stomach, like a bad hernia are seeing GI for that, are hydrating Voiding and bm without difficulty Ambulating up ad kathy Fatigue always Wilman le edema denies Denies questions, concerns regarding medications, self care , no issues, stable Patient discharged from [facility] Discharge date: 09/30/24 Admitted for: Cough and shortness of breath COPD exacerbation Readmission Risk: n/a Value-Based Contract: Yang DIOR Contact: Contact made with patient: Yes Hi, my name is Bimal Gonzalez RN and I am calling from the [facility] on behalf of your Primary Care Provider, Gabriel Galvan MD. I understand you were recently in the hospital, so I am calling to check in with you to ensure you are feeling well now that you are home. May I ask you a few questions related to your hospital stay and well-being? Yes Spoke to: Patient Validation: Validated the person spoken to is actively involved in the patient's care. The patient was identified by Name and Date of . Symptoms: Are you feeling about the same, better or worse since leaving the hospital? Better Medications: Do you have any questions about taking your medications, including which medications you should be on, or do you need refills on your medications? No Medication Review: Declined at this time per patient preference Discharge Instructions: Your Discharge Instructions / After Visit Summary (AVS) are important in guiding you through the recovery process. Do you have any questions related to your discharge instructions? No Home Care: Were you discharged with home care? No Equipment: Do you have all the necessary equipment and supplies needed at your home? Yes The patient verbalizes understanding the use of the equipment and supplies Social: Your mental health is as important to us as your physical health. Would you mind answering a few questions on this topic? Yes On the Storyboard review: Food Insecurity, Transportation, Depression, Housing, and Financial Strain: Complete any SDOHs, listed above, if not addressed in the past 3 months. If all SDOHs, listed above, have been addressed within the last 3 months, confirm responses and update any SDOHs that have changed. Action Taken: No needs verbalized. No action required. Follow-Up Appointment: [Appointment / TCM Follow-up within 14 days] I would like to help you schedule a hospital follow-up virtual or telephone visit with your PCP. This is a great way for you to connect with your provider to ensure you have safely transitioned home.If you are agreeable, I will send your request to a flight crew scheduler who will contact and assist you with that appointment. This will give you an opportunity to ask any questions or address any concerns youmay have with your PCP. Inform the patient that if they have any questions or concerns prior to that appointment, to call their PCP's office right away. Appointment Action: Patient desires an appointment. Complete Navigation Team box and route to [facility] ([phone]) for scheduling. Education N/A Targets addressed / completed during outreach: Contact patient within two (2) business days Outreach Outcome: Enrolled in TCM Care Management partners utilized: Navigation Team Bimal Gonzalez RN October 03, 2024 11:45 AM documented [facility] NoteHNO ID: [id number] Author: BIMAL GONZALEZ RN Service: ? Author Type: Registered Nurse Type: Progress Notes Filed: 10/03/2024 12:04 Note Text: Transition Care Management (TCM) Initial Outreach PCP Update / Actionable Items Patient daughterKacy is requesting a walker. will route Patient need help with SW, will route OON No risk Score Follow-up within 14 days 10/14/24 HRTIC TCM Home Visit Referral Source of Stratification: [facility] Admission Status: Discharged Readmission Risk Score: n/a Patient's zip code: [address] Is zip code within program service area: No Patient meets program referral criteria: No Patient does not qualify for High Risk TCM Home Visit program due to: Readmission Risk Score does not meet criteria Disposition: Patient does not qualify for HRTIC, will provide TCM outreach follow-up for 30-days Patient Source: [id number]-Eijojrb (OON) Discharge Outreach Summary: Spoke with daughterKacy Pat states ;pt is feeling better, feel the pt need a walker, will route to PCP , need help with transportation, will route to SW O2 2L NC, stated pt is still smoking Cough dry also wheezing and some chills Denies fever, n/v Appetite - eating decrease, not new, have something going on with stomach, like a bad hernia are seeing GI for that, are hydrating Voiding and bm without difficulty Ambulating up ad kathy Fatigue always Wilman le edema denies Denies questions, concerns regarding medications, self care , no issues, stable Patient discharged from [facility] Discharge date: 09/30/24 Admitted for: Cough and shortness of breath COPD exacerbation Readmission Risk: n/a Value-Based Contract: Yang DIOR Contact: Contact made with patient: Yes Hi, my name is Bimal Gonzalez RN and I am calling from the [facility] on behalf of your Primary Care Provider, Gabriel Galvan MD. I understand you were recently in the hospital, so I am calling to check in with you to ensure you are feeling well now that you are home. May I ask you a few questions related to your hospital stay and well-being? Yes Spoke to: Patient Validation: Validated the person spoken to is actively involved in the patient's care. The patient was identified by Name and Date of . Symptoms: Are you feeling about the same, better or worse since leaving the hospital? Better Medications: Do you have any questions about taking your medications, including which medications you should be on, or do you need refills on your medications? No Medication Review: Declined at this time per patient preference Discharge Instructions: Your Discharge Instructions / After Visit Summary (AVS) are important in guiding you through the recovery process. Do you have any questions related to your discharge instructions? No Home Care: Were you discharged with home care? No Equipment: Do you have all the necessary equipment and supplies needed at your home? Yes The patient verbalizes understanding the use of the equipment and supplies Social: Your mental health is as important to us as your physical health. Would you mind answering a few questions on this topic? Yes On the Storyboard review: Food Insecurity, Transportation, Depression, Housing, and Financial Strain: Complete any SDOHs, listed above, if not addressed in the past 3 months. If all SDOHs, listed above, have been addressed within the last 3 months, confirm responses and update any SDOHs that have changed. Action Taken: No needs verbalized. No action required. Follow-Up Appointment: [Appointment / TCM Follow-up within 14 days] I would like to help you schedule a hospital follow-up virtual or telephone visit with your PCP. This is a great way for you to connect with your provider to ensure you have safely transitioned home. If you are agreeable, I will send your request to a flight crew scheduler who will contact and assist you with that appointment. This will give you an opportunity to ask any questions or address any concerns you may have with your PCP. Inform the patient that if they have any questions or concerns prior to that appointment, to call their PCP's office right away. Appointment Action: Patient desires an appointment. Complete Navigation Team box and route to [facility] ([phone]) for scheduling. Education N/A Targets addressed / completed during outreach: Contact patient within two (2) business days Outreach Outcome: Enrolled in TCM Care Management partners utilized: Navigation Team Bimal Gonzalez RN October 03, 2024 11:45 [facility]01-27-2025 NotePatient Outreach ([facility]) LUIS FMARCIA Vale ([id number]) 1955 F T Date Time Provider Department 10/03/24 BIMAL GONZALEZ During your visit today, we recorded the following information about you: Bimal Gonzalez, RN 10/03/2024 12:04 PM Signed Transition Care Management (TCM) Initial Outreach PCP Update / Actionable Items Patient daughter/Marleny is requesting a walker. will route Patient need help with SW, will route OON No risk Score Follow-up within 14 days 10/14/24 [facility] Referral Source of Stratification: [facility] Admission Status: Discharged Readmission Risk Score: n/a Patient's zip code: [address] Is zip code within program service area: No Patient meets program referral criteria: No Patient does not qualify for High Risk TCM Home Visit program due to: Readmission Risk Score does not meet criteria Disposition: [facility], will provide TCM outreach follow-up for 30-days Patient Source: Qnq-ag-Hyqceur (OON) Discharge Outreach Summary: Spoke with daughter/Marleny Pat states ;pt is feeling better, feel the pt need a walker, will route to PCP , need help with transportation, will route to SW O2 2L NC, stated pt is still smoking Cough dry also wheezing and some chills Denies fever, n/v Appetite - eating decrease, not new, have something going on with stomach, like a bad hernia are seeing GI for that, are hydrating Voiding and bm without difficulty Ambulating up ad kathy Fatigue always Wilman le edema denies Denies questions, concerns regarding medications, self care , no issues, stable Patient discharged from [facility] Discharge date: 09/30/24 Admitted for: Cough and shortness of breath COPD exacerbation Readmission Risk: n/a Value-Based Contract: Yang DIOR Contact: Contact made with patient: Yes Hi, my name is Bimal Gonzalez RN and I am calling from the [facility] on behalf of your Primary Care Provider, Gabriel Galvan MD. I understand you were recently in the hospital, so I am calling to check in with you to ensure you are feeling well now that you are home. May I ask you a few questions related to your hospital stay and well-being? Yes Spoke to: Patient Validation: Validated the person spoken to is actively involved in the patient's care. The patient was identified by Name and Date of . Symptoms: Are you feeling about the same, better or worse since leaving the hospital? Better Medications: Do you have any questions about taking your medications, including which medications you should be on, or do you need refills on your medications? No Medication Review: Declined at this time per patient preference Discharge Instructions: Your Discharge Instructions / After Visit Summary (AVS) are important in guiding you through the recovery process. Do you have any questions related to your discharge instructions? No Home Care: Were you discharged with home care? No Equipment: Do you have all the necessary equipment and supplies needed at your home? Yes The patient verbalizes understanding the use of the equipment and supplies Social: Your mental health is as important to us as your physical health. Would you mind answering a few questions on this topic? Yes On the Storyboard review: Food Insecurity, Transportation, Depression, Housing, and Financial Strain: Complete any SDOHs, listed above, if not addressed in the past 3 months. If all SDOHs, listed above, have been addressed within the last 3 months, confirm responses and update any SDOHs that have changed. Action Taken: No needs verbalized. No action required. Follow-Up Appointment: [Appointment / TCM Follow-up within 14 days] I would like to help you schedule a hospital follow-up virtual or telephone visit with your PCP. This is a great way for you to connect with your provider to ensure you have safely transitioned home. If you are agreeable, I will send your request to a flight crew scheduler who will contact and assist you with that appointment. This will give you an opportunity to ask any questions or address any concerns you may have with your PCP. Inform the patient that if they have any questions or concerns prior to that appointment, to call their PCP's office right away. Appointment Action: Patient desires an appointment. Complete Navigation Team box and route to [facility] ([id number]) for scheduling. Education N/A Targets addressed / completed during outreach: Contact patient within two (2) business days Outreach Outcome: Enrolled in TCM Care Management partners utilized: Navigation Team Bimal Gonzalez RN October 03, 2024 11:45 AM Salud Foster 10/03/2024 12:21 PM Signed POPULATION [facility]ALTH NAVIGATION OUTREACH Action/FYI Scheduled TCM appt 10-11-2023 TCM janet until 2 (more content not included)...[facility] 09-30-2024 Telephone encounter Note* Telephone Encounter - Melissa Leon LPN - 09/30/2024 12:00 PM EST Letter printed for PCP to sign. Melissa Leon LPN [facility]01-24-2025 Miscellaneous Notes* Telephone Encounter - Melissa Leon LPN - 09/30/2024 12:00 PM EST Letter printed for PCP to sign. Melissa Leon LPN * Telephone Encounter - Gabriel Galvan MD - 09/29/2024 10:40 PM EST Patient admitted to [facility] yesterday 09/28 with COPD exacerbation I accidentally deleted the pended letter. Drafted another one to print to sign. * Telephone Encounter - Jackeline Franz RN - 09/29/2024 9:18 AM EST Attempted to call pt with no answer and VM is full. Called and LM for daughter Marleny to call back. Can pt come in for an appt? Also appears there may be a problem with consult order Dr. Galvan put in on 09/14/24. Having PSS look into it so pt can get an appt with Dr. Brian modi. * Telephone Encounter - Gabriel Galvan MD - 09/28/2024 5:56 PM EST 1) Need more information than patient has a cough to determine whether needs an antibiotic if she is not able to come in for an appointment. What signs of infection? Or is COPD just not adequately controlled? Help with appointment with Dr. Torres/pulmonology 2) May print my electronically signed order to fax to [facility] about giving her morning meds the night prior for next early AM doses * Telephone Encounter - Rula Hernandez RN - 09/28/2024 12:23 PM EST Patient calls to check on status of message below. Notified patient that provider is out today. Patient wanting TRAINING MANAGER to send in order for antibiotic for cough. Patient reports she wants something done before she ends up in the hospital. Asked patient if she had tried anything OTC and patient reports she has tried everything. Patientdidn't give any specific medications tried. Patient supposed to be following up with pulmonology for COPD and pulmonary emphysema. Patient has not scheduled yet. Rula Hernandez RN * Telephone Encounter - Linh Villalobos RN - 09/27/2024 10:17 AM EST Patient calls and states that she would like to have her morning medications taken up to her apartment at night due to there not being staff there early in the morning. Patient was told that providerwrites a letter giving permission for morning medications to be taken up at night then staff will give patient morning medications at night to be take early in the morning. Patient asking if provider can write this? Patient states that letter can be faxed to [facility]. Patient also states that she continues to have issues with cough. Patient asking if provider can send in prescription for Z-arabella? Patient's pharmacy is [facility]. Please review and advise, Linh Villalobos RN documented in this encounterC[facility]01-24-2025 [facility] Medical Records Department [address] [place] [address] Discharge Summary 09/30/24 0831 MR#: [id number] Acct: [id number] Name: MARCIA MASCORRO Rep #: [id number] : [id number] 68 From: Jones Gregory MD PCP: Dr. Gabriel Galvan MD Status:ADM IN Location: [place] [address] Providers Date of Admission: 09/28/24 Date of Discharge: 09/30/24 Primary Care Physician: Dr. Gabriel Galvan MD Reason For Visit: COPD EXACERBATION Diagnosis Discharge Diagnosis (1) COPD exacerbation: Status: Chronic Code(s): J44.1 - Chronic obstructive pulmonary disease with (acute) exacerbation Plan Patient is a 68-year-old lady who presented with shortness of breath diagnosed with COPD with acute exacerbation admitted to regular nursing floor for further management 1. COPD with acute exacerbation ??? Patient started on bronchodilator treatment, systemic steroid as well as antibiotic therapy. Patient placed on oxygen titrated to keep saturation greater than 90. ??? 09/30/2024; patient responded to treatment plan is for patient to be discharged home after home O2 oxygen ??? I have reviewed the oxygen testing, and this patient qualifies for the home equipment and portability. The patient is mobile in the home and the community. 2. Chronic congestive heart failure with reduced ejection fraction ??? Last echo from 2022 demonstrated EF of 30 to 35%. Patient is on guideline directed medical therapy currently not in exacerbation 3. History of LV thrombus ??? January 2023 patient was treated with Xarelto 4. Peripheral arterial disease ??? Patient is on antiplatelet therapy as well as statin therapy 5. Class II obesity with BMI of 36.4 ??? Weight loss advised 6. Dyslipidemia ???Patient is on statin therapy, continued at home dose 7. Hypertension ??? Blood pressure controlled, home medications continued with dose adjustment as needed 8. Depression with anxiety - did continue patient home medication regimen 9. Chronic pain syndrome ??? Did continue patient home pain medication regimen 10. Hyperglycemia ??? Due to concomitant use of steroid we will continue to monitor 11. DVT prophylaxis ??? Subcu Lovenox Time spent in the patient's overall evaluation,decision-making process, review of diagnostic data, adjustment of management, discussion with other providers, nursing nursing and ancillary staff involved in patient's care documentation, 35 Minutes Medications at Discharge Home Medications clopidogrel 75 mg tablet (Plavix) 75 mg PO DAILY 30 days #30 tabs 01/04/23 inhalational spacing device (Aerochamber MV spacer) #1 ea 02/17/23 tiotropium bromide 2.5 mcg/actuation mist for inhalation (Spiriva Respimat) 2 puff inhalation DAILY #4 grams 02/17/23 lorazepam 1 mg tablet (Ativan) 1 mg PO TID PRN anxiety 07/16/23 amiodarone 200 mg tablet 200 mg PO DAILY 07/22/23 furosemide 20 mg tablet 20 mg PO Q12H 07/29/23 gabapentin 400 mg capsule 400 mg PO Q6H 07/29/23 nitroglycerin 0.4 mg sublingual tablet 0.4 mg buccal Q5M PRN chest pain 07/29/23 sucralfate 1 gram tablet 1 g PO Q8H 07/29/23 albuterol sulfate 2.5 mg/3 mL (0.083 %) solution for nebulization 2.5 mg continuous nebulization Q6H PRN shortness of breath or wheezing 09/05/23 melatonin 3 mg capsule 3 mg PO QHS 09/05/23 carvedilol 12.5 mg tablet (Coreg) 12.5 mg PO BID #60 tabs 07/07/24 albuterol 90 mcg-budesonide 80 mcg/actuation HFA aerosol inhaler (Airsupra) 1 - 2 inh inhalation BID PRN shortness of breath 09/28/24 atorvastatin 40 mg tablet 40 mg PO QHS 09/28/24 bisacodyl 5 mg tablet,delayed release 5 mg PO DAILY PRN constipation 09/28/24 cholecalciferol (vitamin D3) 125 mcg (5,000 unit) capsule 125 mcg PO DAILY 09/28/24 hydrocodone-acetaminophen 5-325mg 5mg-325mg 1 tab PO Q4H 09/28/24 lisinopril 5 mg tablet 5 mg PO DAILY 09/28/24 oxycodone myristate 18 mg capsule sprinkle extended release 12hr(DON'T CRUSH) (Xtampza ER) 18 mg PO BID 09/28/24 polyethylene glycol 3350 17 gram/dose oral powder 17 g PO BID 09/28/24 potassium chloride 20 mEq tablet,extended release(part/cryst) 20 meq PO DAILY 09/28/24 promethazine 25 mg tablet 25 mg PO PRN PRN nausea and vomiting 09/28/24 albuterol sulfate 90 mcg/actuation aerosol inhaler 2 puff inhalation Q6H PRN shortness of breath or wheezing #8.5 grams 09/30/24 budesonide-formoterol HFA 160 mcg-4.5 mcg/actuation aerosol inhaler (Symbicort) 1 puff inhalation BID #10.2 grams 09/30/24 doxycycline hyclate 100 mg capsule 100 mg PO BID #14 caps 09/30/24 guaifenesin 1,200 mg tablet, extended release 12 hr (Mucus Relief ER) 1,200 mg PO BID #30 tabs 09/30/24 prednisone 20 mg tablet 20 mg PO BID #10 tabs 09/30/24 Physical Exam Narrative GENERAL: cooperative HEENT: Atraumatic; normocephalic EYES; Anicteric, Normal Conjunctiva NECK; supple, normal thyroid, RESPIRATORY: Diminished to auscultation no whee (more content not included)... [facility]01-23-2025 Telephone encounter Note* Telephone Encounter - Gabriel Galvan MD - 09/29/2024 10:40 PM EST Patient admitted to [facility] yesterday 09/28 with COPD exacerbation I accidentally deleted the pended letter. Drafted another one to print to sign. [facility]01-23-2025 Telephone encounter Note* Telephone Encounter - Jackeline Franz RN - 09/29/2024 9:18 AM EST Attempted to call pt with no answer and VM is full. Called and LM for daughter Marleny to call back. Can pt come in for an appt? Also appears there may be a problem with consult order Dr. Galvan put in on 09/14/24. Having PSS look into it so pt can get an appt with Dr. Brian modi. [facility]01-22-2025 Evaluation note* Diagnosis Onset Date Resolution Status Admit Date COPD exacerbation resolved September 28, 2024 4:40pm Hypoxemia resolved September 28, 2024 4:40pm Respiratory failure resolved 2024 4:40pm Ischemic cardiomyopathy acute J anuary 2024 9:51am LV (left ventricular) mural thrombus acute October 04 9:51am Preop cardiovascular exam acute October 04, 2024 9:51am Essential hypertension chronic [facility] 2024 9:51am Hyperlipidemia chronic October 042024 9:51am [facility] Work Phone: 1(159) 463-522401-22-2025 Evaluation note* Diagnosis Onset Date Resolution Status Admit Date COPD exacerbation resolved September 28, 2024 4:40pm Hypoxemia resolved September 28, 2024 4:40pm Respiratory failure resolved 2024 4:40pm Ischemic cardiomyopathy acute J anuary 2024 9:51am LV (left ventricular) mural thrombus acute October 04 9:51am Preop cardiovascular exam acute October 04, 2024 9:51am Essential hypertension chronic [facility] 2024 9:51am Hyperlipidemia chronic October 042024 9:51am Barretts esophagus chronic January 10:39am Common bile duct obstruction chronic January 13, 2025 10:39am Dysphagia chronic January 13, 2025 10:39am [facility] Work Phone: 1(530) 363-919701-22-2025 Telephone encounter Note* Telephone Encounter - Gabriel Galvan MD - 09/28/2024 5:56 PM EST 1) Need more information than patient has a cough to determine whether needs an antibiotic if she is not able to come in for an appointment. What signs of infection? Or is COPD just not adequately controlled? Help with appointment with Dr. Torres/pulmonology 2) May print my electronically signed order to fax to [facility] about giving her morning meds the night prior for next early AM doses [facility]01-22-2025 Telephone encounter Note* Telephone Encounter - Rula Hernandez RN - 09/28/2024 12:23 PM EST Patient calls to check on status of message below. Notified patient that provider is out today. Patient wanting TRAINING MANAGER to send in order for antibiotic for cough. Patient reports she wants something done before she ends up in the hospital. Asked patient if she had tried anything OTC and patient reports she has tried everything. Patientdidn't give any specific medications tried. Patient supposed to be following up with pulmonology for COPD and pulmonary emphysema. Patient has not scheduled yet. Rula Hernandez RN [facility]01-21-2025 Telephone encounter Note* Telephone Encounter - Linh Villalobos RN - 09/27/2024 10:17 AM EST Patient calls and states that she would like to have her morning medications taken up to her apartment at night due to there not being staff there early in the morning. Patient was told that providerwrites a letter giving permission for morning medications to be taken up at night then staff will give patient morning medications at night to be take early in the morning. Patient asking if provider can write this? Patient states that letter can be faxed to [facility]. Patient also states that she continues to have issues with cough. Patient asking if provider can send in prescription for Z-arabella? Patient's pharmacy is [facility]. Please review and advise, Linh Villalobos RN [facility]01-08-2025 Instructions* Patient Instructions* Gabriel Galvan MD - 09/14/2024 4:38 PM EST - Medications: - Continue taking Airsupra as prescribed; refills sent to [facility]. - Take Dulcolax 5 mg tablets once daily as needed for constipation; prescription sent to [facility]. - Take Cymbalta (duloxetine) as prescribed for neuropathy; refills sent to [facility]. - Take Carafate in liquid form as prescribed; prescription sent to [facility]. - Take smaller potassium pills (10 mEq) twice daily; prescription sent to [facility]. - Take Phenergan (promethazine) as needed for nausea; prescription sent to [facility]. - Start taking spironolactone 25 mg daily to help maintain potassium levels; prescription sent to [facility]. - Start taking Miralax daily for constipation; prescription sent to [facility]. - Referrals: - Follow up with your current humanities and languages professor for pre-operative evaluation. - Referral to pulmonary medicine for lung issues; appointment to be scheduled with Dr. Torres or prince. - Referral to podiatry for bilateral ankle and foot pain; appointment to be scheduled with Dr. Santos. - Lab Tests: - Complete the following lab tests as soon as possible: - Blood counts - Magnesium - Vitamin D - Cholesterol panel (non-fasting) - A1c - Metabolic panel - Follow-Up Appointments: - Next appointment with your clinician in 3 months. - Alternate follow-up appointments with Nora and your clinician as needed. [facility] NoteHNO ID: [id number] Author: GABRIEL GALVAN MD Service: ? Author Type: Physician Type: Progress Notes Filed: 09/14/2024 16:40 Note Text: This note was created using Playteauriter. Subjective Marcia Mascorro is a 68 year old female. Patient presents with: F/U 3 Month SUBJECTIVE: Marcia Mascorro is a 68 year old year old lady here today for 3 month follow up appointment for review of medical conditions. Marcia Mascorro is a 68-year-old female with a history of COPD, emphysema, neuropathy, and chronic constipation, presenting for a follow-up visit and multiple medication refills. Marcia reports chronic lung pain, which she attributes to her history of COPD and emphysema. She experiences constant pain in her lungs, particularly when taking deep breaths. She is currently using Airsupra for acute episodes but expresses a need for a pulmonary consultation due to the severity of her symptoms. She also reports severe constipation, stating that she often cries due to the pain. She is currently using Dulcolax suppositories but requests a switch to oral tablets. She also inquires about increasing her senna dosage from one tablet twice daily to two tablets twice daily, as she feels the current dosage is ineffective. She has a history of using Miralax, which she found helpful, and expresses a desire to resume its use. Marcia is also experiencing worsening neuropathy, particularly in her feet and ankles, with symptoms of burning, tingling, and loss of sensation. She reports that her toes are becoming crippled and that she has difficulty walking. She is currently under the care of a bobbin painter, Dr. Forrest, and requests a referral to a home health lvn for further evaluation. Additionally, Marcia has a history of gastroesophageal reflux disease (GERD) and is currently taking Carafate in pill form. She requests a switch to the liquid form due to difficulty swallowing. She also inquires about a prescription for Phenergan, stating that it is more effective for her nausea than Zofran. Marcia is currently taking potassium supplements but reports difficulty swallowing the large pills. She requests a switch to smaller pills or a liquid form. She also expresses a desire to reduce her Lasix dosage from two tablets daily to one tablet daily, as she feels dehydrated and experiences charley horses in her groin. Mar[facility] and requests a referral to a humanities and languages professor for a pre-operative evaluation. She also mentions a history of precancerous cells in her esophagus and is awaiting further evaluation by her test cell technician. PAST MEDICAL HISTORY Diagnosis Date Abdominal aortic aneurysm (HCC) JOVANY (acute kidney injury) ([facility]) Anaphylactic reaction due to contrast Anxiety Retana's esophagus Bile leak, postoperative CAD (coronary artery disease) CHF (congestive heart failure) ([facility]) Chronic back pain Chronic pain low back, sees pain MGT: Dr. Nayak Compression fracture of thoracic vertebra ([facility]) COPD (chronic obstructive pulmonary disease) ([facility]) Depression Diabetes mellitus (HCC) Diverticulosis Essential hypertension, benign Sees Dr. Best GERD (gastroesophageal reflux disease) Hyperthyroidism Incontinence 07/07/2014 LV (left ventricular) mural thrombus 12/01/2023 Mixed hyperlipidemia Obesity Opioid dependence (HCC) 01/15/2020 In 180 as of 01/2020 per ER report from [facility]. Palpitation Primary cardiomyopathy (HCC) Pulmonary emphysema (HCC) SVT (supraventricular tachycardia) (HCC) Tremor Current Outpatient Medications Medication Sig omeprazole (PRILOSEC) 40 mg capsule Take 1 capsule by mouth once daily. Diaper,Brief, Adult,Disposable (DEPEND EASY FIT UNDERGARMENTS) Size Large pull up. Change depends once every 1-2 hrs. 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 senna-docusate (SENNA PLUS) 8.6-50 mg per tablet Take 1 tablet by mouth every morning AND 1 tablet daily at bedtime. tiotropium bromide (SPIRIVA RESPIMAT) 2.5 mcg/actuation inhaler Inhale 2 Puffs as instructed once daily. Inhale two puffs once daily. sucralfate (CARAFATE) 1 gram tablet Take 1 tablet by mouth before meals and at bedtime. potassium chloride ER (KLOR-CON) 20 mEq tablet Take 1 tablet by mouth once daily. ondansetron (ZOFRAN) 4 mg tablet Take 1 tablet by mouth every 8 hours as needed for nausea/vomiting. lisinopril (ZESTRIL) 5 mg tablet Take 1 tablet by mouth once daily. gabapentin (NEURONTIN) 400 mg capsule Take 1 capsule by mouth three times a day for 180 days. furosemide (LASIX) 20 mg tablet Take 1 tablet by mouth two times a day. clopidogrel (PLAVIX) 75 mg tablet Take 1 tablet by mouth once daily. Cholecalciferol, Vitamin D3, 125 mcg (5,000 unit) cap Take 1 capsule by mouth once daily. carvedilol (COREG) 6.25 (more content not included)...[facility] 09-14-2024 History of Present illness Narrative* Gabriel Galvan MD - 09/14/2024 4:07 PM EST This note was created using NoteWriter. Subjective Marcia Mascorro is a 68 year old female. Patient presents with: F/U 3 Month SUBJECTIVE: Marcia Mascorro is a 68 year old year old lady here today for 3 month follow up appointment for review of medical conditions. Marcia Mascorro is a 68-year-old female with a history of COPD, emphysema, neuropathy, and chronic constipation, presenting for a follow-up visit and multiple medication refills. Marcia reports chronic lung pain, which she attributes to her history of COPD and emphysema. She experiences constant pain in her lungs, particularly when taking deep breaths. She is currently using Airsupra for acute episodes but expresses a need for a pulmonary consultation due to the severity of her symptoms. She also reports severe constipation, stating that she often cries due to the pain. She is currently using Dulcolax suppositories but requests a switch to oral tablets. She also inquires about increasing her senna dosage from one tablet twice daily to two tablets twice daily, as she feels the current dosage is ineffective. She has a history of using Miralax, which she found helpful, and expressesa desire to resume its use. Marcia is also experiencing worsening neuropathy, particularly in her feet and ankles, with symptoms of burning, tingling, and loss of sensation. She reports that her toes are becoming crippled and that she has difficulty walking. She is currently under the care of a bobbin painter,Dr. Forrest, and requests a referral to a home health lvn for further evaluation. Additionally, Marcia has a history of gastroesophageal reflux disease (GERD) and is currently taking Carafate in pill form. She requests a switch to the liquid form due to difficulty swallowing. She also inquires about a prescription for Phenergan, stating that it is more effective for her nauseathan Zofran. Marcia is currently taking potassium supplements but reports difficulty swallowing the large pills. She requests a switch to smaller pills or a liquid form. She also expresses a desire to reduce her Lasix dosage from two tablets daily to one tablet daily, as she feels dehydrated and experiences charley horses in her groin. Marcia is [facility] and requests a referral to a humanities and languages professor for a pre-operative evaluation. She also mentions a history of precancerous cells in her esophagus and is awaiting further evaluation by her test cell technician. PAST MEDICAL HISTORY Diagnosis Date Abdominal aortic aneurysm (HCC) JOVANY (acute kidney injury) (HCC) Anaphylactic reaction due to contrast Anxiety Retana's esophagus Bile leak, postoperative CAD (coronary artery disease) CHF (congestive heart failure) (HCC) Chronic back pain Chronic pain low back, sees pain MGT: Dr. Nayak Compression fracture of thoracic vertebra (HCC) COPD (chronic obstructive pulmonary disease) (HCC) Depression Diabetes mellitus (HCC) Diverticulosis Essential hypertension, benign Sees Dr. Best GERD (gastroesophageal reflux disease) Hyperthyroidism Incontinence 07/07/2014 LV (left ventricular) mural thrombus 12/01/2023 Mixed hyperlipidemia Obesity Opioid dependence (HCC) 01/15/2020 In 180 as of 01/2020 per ER report from [facility]. Palpitation Primary cardiomyopathy (HCC) Pulmonary emphysema (HCC) SVT (supraventricular tachycardia) (HCC) Tremor Current Outpatient Medications Medication Sig omeprazole (PRILOSEC) 40 mg capsule Take 1 capsule by mouth once daily. Diaper,Brief, Adult,Disposable (DEPEND EASY FIT UNDERGARMENTS) Size Large pull up. Change depends once every 1-2 hrs. 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 senna-docusate (SENNA PLUS) 8.6-50 mg per tablet Take 1 tablet by mouth every morning AND 1 tablet daily at bedtime. tiotropium bromide (SPIRIVA RESPIMAT) 2.5 mcg/actuation inhaler Inhale 2 Puffs as instructed once daily. Inhale two puffs once daily. sucralfate (CARAFATE) 1 gram tablet Take 1 tablet by mouth before meals and at bedtime. potassium chloride ER (KLOR-CON) 20 mEq tablet Take 1 tablet by mouth once daily. ondansetron (ZOFRAN) 4 mg tablet Take 1 tablet by mouth every 8 hours as needed for nausea/vomiting. lisinopril (ZESTRIL) 5 mg tablet Take 1 tablet by mouth once daily. gabapentin (NEURONTIN) 400 mg capsule Take 1 capsule by mouth three times a day for 180 days. furosemide (LASIX) 20 mg tablet Take 1 tablet by mouth two times a day. clopidogrel (PLAVIX) 75 mg tablet Take 1 tablet by mouth once daily. Cholecalciferol, Vitamin D3, 125 mcg (5,000 unit) cap Take 1 capsule by mouth once daily. carvedilol (COREG) 6.25 mg tablet Take 1 tablet by mouth two times a day with meals. albuterol-budesonide HFA (AIRSUPRA) 90-80 mcg/actuation inhaler Inhale 2 Puffs as instructed every 2 hours as needed for wheezing/shortness of breath. Do not take more than 12 inhalations in a 24 hour period. melatonin 10 mg tab Take 1 tablet by mouth at bedtime as needed for insomnia. oxyCODONE myristate (XTAMPZA ER) 27 mg CSpT Take 1 capsule by mouth two times a day. acetaminophen (TYLENOL) 325 mg tablet Take 650 mg by mouth every 4 hours as needed. aluminum-magnesium hydroxide-simethicone (MAALOX,MYLANTA,MAG-AL PLUS) 200-200-20 mg/5 mL suspensionTake 30 mL by mouth as needed. bisacodyl (DULCOLAX) 10 mg supp 10 mg by RECTAL route once daily as needed for constipation. Nutritional Supplements (OPTIMENTAL) liqd Take 237 mL by mouth once daily. Okay with what insurancecovers (Patient not taking: Reported on 09/14/2024) sodium phosphate-sodium bisphosphate (FLEET) enema 133 mL by RECTAL route as needed for constipation. (Patient not taking: Reported on 09/14/2024) magnesium hydroxide (MILK OF MAGNESIA) 400 mg/5 mL suspension Take 30 mL by mouth once daily as needed for constipation. (Patient not taking: Reported on 09/14/2024) DULoxetine (CYMBALTA) 30 mg capsule Take 1 capsule by mouth once daily. (Patient not taking: Reported on 09/14/2024) docusate sodium (COLACE) 100 mg capsule Take 1 capsule by mouth two times a day as needed for constipation. (Patient not taking: Reported on 09/14/2024) dicyclomine (BENTYL) 10 mg capsule Take 2 capsules by mouth two times a day. (Patient not taking: Reported on 09/14/2024) benzonatate (TESSALON PERLES) 100 mg capsule Take 1 capsule by mouth three times a day as needed for cough. (Patient not taking: Reported on 09/14/2024) acetaminophen (TYLENOL) 650 mg suppository 650 mg by RECTAL route every 4 hours as needed. (Patientnot taking: Reported on 09/14/2024) No current facility-administered medications for this visit. Review of Systems Objective BP 124/72 Pulse 82 Temp 36.4 C (97.6 F) Resp 16 Wt 85.1 kg (187 lb 9.8 oz) SpO2 96% BMI31.22 kg/m Physical Exam Assessment and Plan # Chronic obstructive pulmonary disease, unspecified COPD type (HCC) (J44.9) # Pulmonary emphysema, unspecified emphysema type (HCC) (J43.9) - Referred to Dr. Torres in pulmonary medicine for further evaluation and management. - Current medications include Airsupra and Spiriva; [facility] - Monitor for any exacerbations or worsening symptoms. # Gastroesophageal reflux disease with esophagitis (K21.00) - Current medication: Omeprazole; refills confirmed until November. - Discussed dietary modifications to reduce reflux symptoms, including avoiding cold liquids, caffeine, and tomatoes. - Patient to continue with upcoming GI evaluations and procedures as scheduled. # Hypokalemia (E87.6) - Discontinued potassium chloride 20 mEq due to difficulty swallowing. - Initiated spironolactone 25 mg daily; monitor potassium levels closely. - Ordered lab work to include comprehensive metabolic panel to assess electrolyte status. # Chronic pain of both ankles (M25.571) # Chronic pain of both feet (M79.671) - Referred to podiatry for evaluation and management of bilateral ankle and foot pain. - Continue current pain management regimen with Dr. Forrest. # Epigastric pain (R10.13) - Prescribed Carafate suspension 1 gram QID; [facility] - Monitor for improvement in symptoms; follow-up as needed. # Nausea (R11.0) - Prescribed promethazine 25 mg; potential interaction with current medications discussed. - Monitor for side effects such as sedation. # Type 2 diabetes mellitus with other specified complication, without long-term current use of insulin (HCC) (E11.69) - Ordered HbA1c to assess glycemic control. - Continue current management; follow-up based on lab results. # Vitamin D deficiency (E55.9) - Ordered vitamin D level as part of lab work. - Continue current supplementation; adjust based on lab results. # Mixed hyperlipidemia (E78.2) - Ordered lipid panel to assess current status. - Continue current management; follow-up based on lab results. # Pleurisy (R09.1) - Referred to pulmonary medicine for further evaluation. - Monitor for any changes in symptoms; follow-up as needed. # Encounter for long-term current use of medication (Z79.899) - Reviewed and updated medication list. - Refilled necessary prescriptions and sent to [facility]. - Scheduled follow-up in 3 months to reassess medication efficacy and adherence. Gabriel Galvan MD [facility] NoteHNO ID: [id number] Author: RYANNE NEGRO APRN.[employer] Service: ? Author Type: Nurse Practitioner Type: Progress Notes Filed: 08/26/2024 17:56 Note Text: CC: Patient presents with: Barky Cough: With wheeze, SOB AND sore throat x 2-3 days HPI: Marcia Mascorro is a 68 year old female who presents to the office with complaint of chest congestion, head congestion, cough, productive, and wheezing for a few days. Symptoms are worsening Associated symptoms includes wheezing. Denies fever, nausea, vomiting , and diarrhea. Treatments tried include nothing so far. with no relief of symptoms. Sick contacts: unknown. History of asthma, frequent episodes of bronchitis, chronic bronchitis, bronchiectasis or COPD: No Smoker: No Seasonal/environmental allergies: No The ROS is otherwise negative. The patient's pmh, medications, allergies, and past visits are reviewed. PHYSICAL EXAM: BP 136/85 Pulse 87 Temp 37.6 ?C (99.6 ?F) (Right Tympanic) Resp 24 Wt 87.5 kg (192 lb 14.4 oz) SpO2 94% BMI 32.10 kg/m? General appearance: alert, cooperative, pleasant, in no acute distress Head: Normocephalic Eyes: EOM's intact, conjunctiva pink and moist, no icterus, sclera white, non-injected Ears: Right ear: External ear/canal- Normal, TM - clear with good landmarks. Left ear: External ear/canal- Normal, TM - clear with good landmarks Oropharynx:moist without lesions, mild erythema, exudates or tonsillar hypertrophy. Heart: Negative. RRR without obvious murmur, gallop, or rubs. No ectopy. Lungs: wheezing diffusely PAST MEDICAL HISTORY Diagnosis Date Abdominal aortic aneurysm (HCC) JOVANY (acute kidney injury) (HCC) Anaphylactic reaction due to contrast Anxiety Retana's esophagus Bile leak, postoperative CAD (coronary artery disease) CHF (congestive heart failure) (HCC) Chronic back pain Chronic pain low back, sees pain MGT: Dr. Nayak Compression fracture of thoracic vertebra (HCC) COPD (chronic obstructive pulmonary disease) (HCC) Depression Diabetes mellitus (HCC) Diverticulosis Essential hypertension, benign Sees Dr. Best GERD (gastroesophageal reflux disease) Hyperthyroidism Incontinence 07/07/2014 LV (left ventricular) mural thrombus 12/01/2023 Mixed hyperlipidemia Obesity Opioid dependence (HCC) 01/15/2020 In 180 as of 01/2020 per ER report from [facility]. Palpitation Primary cardiomyopathy (HCC) Pulmonary emphysema (HCC) SVT (supraventricular tachycardia) (HCC) Tremor PAST SURGICAL HISTORY Procedure Laterality Date 2D ECHO (EXEP) 01/19/2017 EF=55%, mild LVH, LA enlargement, TX and TI, Diastolic dysfunction. 2D ECHO (EXEP) 12/18/2017 EF=55%, mild LVH, mild diastolic dysfunct, COLONOSCOPY FLX DX W/COLLJ SPEC WHEN PFRMD 04/16/2016 Colonoscopy mac. repeat 10 yrs ESOPHAGOGASTRODUODENOSCOPY TRANSORAL DIAGNOSTIC 04/16/2016 EGD mac LAPAROSCOPIC CHOLECYSTECTOMY 12/09/2023 Dr. Tejada TOTAL ABDOMINAL HYSTERECT W/WO RMVL TUBE OVARY Hysterectomy, YANICK ALLERGIES Contrast Dye [Iodine] MEDICATIONS omeprazole (PRILOSEC) 40 mg capsule Take 1 capsule by mouth once daily. Nutritional Supplements (OPTIMENTAL) liqd Take 237 mL by mouth once daily. Okay with what insurance covers Diaper,Brief, Adult,Disposable (DEPEND EASY FIT UNDERGARMENTS) Size Large pull up. Change depends once every 1-2 hrs. 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 senna-docusate (SENNA PLUS) 8.6-50 mg per tablet Take 1 tablet by mouth every morning AND 1 tablet daily at bedtime. sucralfate (CARAFATE) 1 gram tablet Take 1 tablet by mouth before meals and at bedtime. sodium phosphate-sodium bisphosphate (FLEET) enema 133 mL by RECTAL route as needed for constipation. potassium chloride ER (KLOR-CON) 20 mEq tablet Take 1 tablet by mouth once daily. ondansetron (ZOFRAN) 4 mg tablet Take 1 tablet by mouth every 8 hours as needed for nausea/vomiting. magnesium hydroxide (MILK OF MAGNESIA) 400 mg/5 mL suspension Take 30 mL by mouth once daily as needed for constipation. lisinopril (ZESTRIL) 5 mg tablet Take 1 tablet by mouth once daily. gabapentin (NEURONTIN) 400 mg capsule Take 1 capsule by mouth three times a day for 180 days. furosemide (LASIX) 20 mg tablet Take 1 tablet by mouth two times a day. DULoxetine (CYMBALTA) 30 mg capsule Take 1 capsule by mouth once daily. docusate sodium (COLACE) 100 mg capsule Take 1 capsule by mouth two times a day as needed for constipation. dicyclomine (BENTYL) 10 mg capsule Take 2 capsules by mouth two times a day. clopidogrel (PLAVIX) 75 mg tablet Take 1 tablet by mouth once daily. Cholecalciferol, Vitamin D3, 125 mcg (5,000 unit) cap Take 1 capsule by mouth once daily. carvedilol (COREG) 6.25 mg tablet Take 1 tablet by mouth two times a day with meals. benzonatate (TESSALON PERLES) 100 mg capsule Take 1 capsule by mouth three (more content not included)...[facility]12-20-2024 History of Present illness Narrative* Ryanne Negro APRN.[facility] - 08/26/2024 5:42 PM EST CC: Patient presents with: Barky Cough: With wheeze, SOB & sore throat x 2-3 days HPI: Marcia Mascorro is a 68 year old female who presents to the office with complaint of chest congestion, head congestion, cough, productive, and wheezing for a few days. Symptoms are worsening Associated symptoms includes wheezing. Denies fever, nausea, vomiting , and diarrhea. Treatments tried include nothing so far. with no relief of symptoms. Sick contacts: unknown. History of asthma, frequent episodes of bronchitis, chronic bronchitis, bronchiectasis or COPD: No Smoker: No Seasonal/environmental allergies: No The ROS is otherwise negative. The patient's pmh, medications, allergies, and past visits are reviewed. PHYSICAL EXAM: BP 136/85 Pulse 87 Temp 37.6 C (99.6 F) (Right Tympanic) Resp 24 Wt 87.5 kg (192 lb 14.4 oz) SpO2 94% BMI 32.10 kg/m General appearance: alert, cooperative, pleasant, in no acute distress Head: Normocephalic Eyes: EOM's intact, conjunctiva pink and moist, no icterus, sclera white, non-injected Ears: Right ear: External ear/canal- Normal, TM - clear with good landmarks. Left ear: External ear/canal- Normal, TM - clear with good landmarks Oropharynx:moist without lesions, mild erythema, exudates or tonsillar hypertrophy. Heart: Negative. RRR without obvious murmur, gallop, or rubs. No ectopy. Lungs: wheezing diffusely PAST MEDICAL HISTORY Diagnosis Date Abdominal aortic aneurysm (HCC) JOVANY (acute kidney injury) (HCC) Anaphylactic reaction due to contrast Anxiety Retana's esophagus Bile leak, postoperative CAD (coronary artery disease) CHF (congestive heart failure) (HCC) Chronic back pain Chronic pain low back, sees pain MGT: Dr. Nayak Compression fracture of thoracic vertebra (HCC) COPD (chronic obstructive pulmonary disease) (HCC) Depression Diabetes mellitus (HCC) Diverticulosis Essential hypertension, benign Sees Dr. Best GERD (gastroesophageal reflux disease) Hyperthyroidism Incontinence 07/07/2014 LV (left ventricular) mural thrombus 12/01/2023 Mixed hyperlipidemia Obesity Opioid dependence (HCC) 01/15/2020 In 180 as of 01/2020 per ER report from [facility]. Palpitation Primary cardiomyopathy (HCC) Pulmonary emphysema (HCC) SVT (supraventricular tachycardia) (HCC) Tremor PAST SURGICAL HISTORY Procedure Laterality Date 2D ECHO (EXEP) 01/19/2017 EF=55%, mild LVH, LA enlargement, TX and TI, Diastolic dysfunction. 2D ECHO (EXEP) 12/18/2017 EF=55%, mild LVH, mild diastolic dysfunct, COLONOSCOPY FLX DX W/COLLJ SPEC WHEN PFRMD 04/16/2016 Colonoscopy mac. repeat 10 yrs ESOPHAGOGASTRODUODENOSCOPY TRANSORAL DIAGNOSTIC 04/16/2016 EGD mac LAPAROSCOPIC CHOLECYSTECTOMY 12/09/2023 Dr. Tejada TOTAL ABDOMINAL HYSTERECT W/WO RMVL TUBE OVARY Hysterectomy, YANICK ALLERGIES Contrast Dye [Iodine] MEDICATIONS omeprazole (PRILOSEC) 40 mg capsule Take 1 capsule by mouth once daily. Nutritional Supplements (OPTIMENTAL) liqd Take 237 mL by mouth once daily. Okay with what insurancecovers Diaper,Brief, Adult,Disposable (DEPEND EASY FIT UNDERGARMENTS) Size Large pull up. Change depends once every 1-2 hrs. 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 senna-docusate (SENNA PLUS) 8.6-50 mg per tablet Take 1 tablet by mouth every morning AND 1 tablet daily at bedtime. sucralfate (CARAFATE) 1 gram tablet Take 1 tablet by mouth before meals and at bedtime. sodium phosphate-sodium bisphosphate (FLEET) enema 133 mL by RECTAL route as needed for constipation. potassium chloride ER (KLOR-CON) 20 mEq tablet Take 1 tablet by mouth once daily. ondansetron (ZOFRAN) 4 mg tablet Take 1 tablet by mouth every 8 hours as needed for nausea/vomiting. magnesium hydroxide (MILK OF MAGNESIA) 400 mg/5 mL suspension Take 30 mL by mouth once daily as needed for constipation. lisinopril (ZESTRIL) 5 mg tablet Take 1 tablet by mouth once daily. gabapentin (NEURONTIN) 400 mg capsule Take 1 capsule by mouth three times a day for 180 days. furosemide (LASIX) 20 mg tablet Take 1 tablet by mouth two times a day. DULoxetine (CYMBALTA) 30 mg capsule Take 1 capsule by mouth once daily. docusate sodium (COLACE) 100 mg capsule Take 1 capsule by mouth two times a day as needed for constipation. dicyclomine (BENTYL) 10 mg capsule Take 2 capsules by mouth two times a day. clopidogrel (PLAVIX) 75 mg tablet Take 1 tablet by mouth once daily. Cholecalciferol, Vitamin D3, 125 mcg (5,000 unit) cap Take 1 capsule by mouth once daily. carvedilol (COREG) 6.25 mg tablet Take 1 tablet by mouth two times a day with meals. benzonatate (TESSALON PERLES) 100 mg capsule Take 1 capsule by mouth three times a day as needed for cough. albuterol-budesonide HFA (AIRSUPRA) 90-80 mcg/actuation inhaler Inhale 2 Puffs as instructed every 2 hours as needed for wheezing/shortness of breath. Do not take more than 12 inhalations in a 24 hour period. melatonin 10 mg tab Take 1 tablet by mouth at bedtime as needed for insomnia. oxyCODONE myristate (XTAMPZA ER) 27 mg CSpT Take 1 capsule by mouth two times a day. acetaminophen (TYLENOL) 650 mg suppository 650 mg by RECTAL route every 4 hours as needed. acetaminophen (TYLENOL) 325 mg tablet Take 650 mg by mouth every 4 hours as needed. aluminum-magnesium hydroxide-simethicone (MAALOX,MYLANTA,MAG-AL PLUS) 200-200-20 mg/5 mL suspensionTake 30 mL by mouth as needed. bisacodyl (DULCOLAX) 10 mg supp 10 mg by RECTAL route once daily as needed for constipation. doxycycline (VIBRA-TABS) 100 mg tablet Take 1 tablet by mouth two times a day for 7 days. tiotropium bromide (SPIRIVA RESPIMAT) 2.5 mcg/actuation inhaler Inhale 2 Puffs as instructed once daily. Inhale two puffs once daily. FAMILY HISTORY Problem Relation Age of Onset Breast Cancer Sister Heart Mother Diabetes Mother Stroke Mother Hypertension Mother Heart Maternal Grandmother Heart Brother Social History Tobacco Use Smoking status: Former Current packs/day: 0.00 Average packs/day: 1 pack/day for 40.0 years (40.0 ttl pk-yrs) Types: Cigarettes Start date: 09/21/1983 Quit date: 09/21/2023 Years since quittin.9 Smokeless tobacco: Never Tobacco comments: 7 cigarette. Quit in Middle of September 2023. Vaping Use Vaping status: Never Used Substance Use Topics Alcohol use: No Drug use: No ASSESSMENT/PLAN: 1. Sore throat - ICD9: 462, ICD10: J02.9 (primary diagnosis) - STREP A MOLECULAR (POC) - neg 2. Respiratory infection - ICD9: 519.8, ICD10: J98.8 - DOXYCYCLINE HYCLATE 100 MG TABLET No xray available Prescription instructions reviewed with patient as applicable. Potential red flag symptoms discussed with the patient. Reviewed appropriate action plan to take if red flag symptoms occur. Patient agreeable to treatment plan. Ryanne Negro APRN.[employer] [facility] NotePatient Outreach (INTMMN) MARCIA MASCORRO ([id number]) 1955 F T Date Time Provider Department 07/20/24 GABRIEL GALVAN INTMMN During your visit today, we recorded the following information about you: Allergies As of Date: 07/20/2024 Noted Allergy Reaction CONTRAST DYE (IODINE) 12/20/2023 10 - Anaphylaxis Date Reviewed: 06/17/2024 Reviewed by: Chucky Zepeda APRN.[employer] - Fully Assessed Visit Diagnosis:Encounter for screening mammogram for breast cancer [Z12.31] Order(s):[facility] [[id number]] Order #: [id number] FUTURE Prescriptions as of 07/25/2024 - omeprazole (PRILOSEC) 40 mg capsule Take 1 capsule by mouth once daily. - Nutritional Supplements (OPTIMENTAL) liqd Take 237 mL by mouth once daily. Okay with what insurance covers - Diaper,Brief, Adult,Disposable (DEPEND EASY FIT UNDERGARMENTS) Size Large pull up. Change depends once every 1-2 hrs. Dx incontinence (788.30) Prolapsed bladder (618.01) - atorvastatin (LIPITOR) 40 mg tablet Take 1 tablet by mouth daily at bedtime. - senna-docusate (SENNA PLUS) 8.6-50 mg per tablet Take 1 tablet by mouth every morning AND 1 tablet daily at bedtime. - tiotropium bromide (SPIRIVA RESPIMAT) 2.5 mcg/actuation inhaler Inhale 2 Puffs as instructed once daily. Inhale two puffs once daily. - sucralfate (CARAFATE) 1 gram tablet Take 1 tablet by mouth before meals and at bedtime. - sodium phosphate-sodium bisphosphate (FLEET) enema 133 mL by RECTAL route as needed for constipation. - potassium chloride ER (KLOR-CON) 20 mEq tablet Take 1 tablet by mouth once daily. - ondansetron (ZOFRAN) 4 mg tablet Take 1 tablet by mouth every 8 hours as needed for nausea/vomiting. - magnesium hydroxide (MILK OF MAGNESIA) 400 mg/5 mL suspension Take 30 mL by mouth once daily as needed for constipation. - lisinopril (ZESTRIL) 5 mg tablet Take 1 tablet by mouth once daily. - gabapentin (NEURONTIN) 400 mg capsule Take 1 capsule by mouth three times a day for 180 days. - furosemide (LASIX) 20 mg tablet Take 1 tablet by mouth two times a day. - DULoxetine (CYMBALTA) 30 mg capsule Take 1 capsule by mouth once daily. - docusate sodium (COLACE) 100 mg capsule Take 1 capsule by mouth two times a day as needed for constipation. - dicyclomine (BENTYL) 10 mg capsule Take 2 capsules by mouth two times a day. - clopidogrel (PLAVIX) 75 mg tablet Take 1 tablet by mouth once daily. - Cholecalciferol, Vitamin D3, 125 mcg (5,000 unit) cap Take 1 capsule by mouth once daily. - carvedilol (COREG) 6.25 mg tablet Take 1 tablet by mouth two times a day with meals. - benzonatate (TESSALON PERLES) 100 mg capsule Take 1 capsule by mouth three times a day as needed for cough. - albuterol-budesonide HFA (AIRSUPRA) 90-80 mcg/actuation inhaler Inhale 2 Puffs as instructed every 2 hours as needed for wheezing/shortness of breath. Do not take more than 12 inhalations in a 24 hour period. - melatonin 10 mg tab Take 1 tablet by mouth at bedtime as needed for insomnia. - oxyCODONE myristate (XTAMPZA ER) 27 mg CSpT Take 1 capsule by mouth two times a day. - acetaminophen (TYLENOL) 650 mg suppository 650 mg by RECTAL route every 4 hours as needed. - acetaminophen (TYLENOL) 325 mg tablet Take 650 mg by mouth every 4 hours as needed. - aluminum-magnesium hydroxide-simethicone (MAALOX,MYLANTA,MAG-AL PLUS) 200-200-20 mg/5 mL suspension Take 30 mL by mouth as needed. - bisacodyl (DULCOLAX) 10 mg supp 10 mg by RECTAL route once daily as needed for constipation. Problem List As Of Date 07/20/2024 Noted Resolved Essential hypertension, benign [I10] Lumbago [M54.50] 12/30/2005 Symptomatic menopausal or female climacteric st*12/30/2005 Anxiety [F41.9] Depression [F32.A] GERD (gastroesophageal reflux disease) [K21.9] Chronic pain [G89.29] COPD with exacerbation (HCC) [J44.1] 12/07/2023 Routine gynecological examination [Z01.419] 06/05/2014 09/23/2022 Well adult exam [Z00.00] 06/05/2014 09/23/2022 Stress incontinence, female [N39.3] 07/07/2014 Mixed hyperlipidemia [E78.2] 07/10/2014 Bladder prolapse, female, acquired [N81.10] 10/04/2014 Diverticulosis [K57.90] 03/20/2015 Smoker [F17.200] 12/28/2015 Epigastric pain [R10.13] 04/16/2016 04/16/2016 Colon cancer screening [Z12.11] 04/16/2016 04/16/2016 Retana's esophagus [K22.70] 08/21/2016 RUQ pain [R10.11] 08/21/2016 12/07/2023 Visual disturbances [H53.9] 08/21/2016 Near syncope [R55] 08/21/2016 09/23/2022 Heart palpitations [R00.2] 09/29/2016 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] 12/22/2016 Medicare annual wellness visit, subsequent [Z00*06/24/2017 09/23/2022 Tremor [R25.1] 06/24/2017 Memory difficulties [R41.3] 06/24/2017 Elevated plasma metanephrines [R79.89] 03/17/2018 Hyperthyroidism [E05.90] 03/17/2018 High catecholamines [R82.5] 03/17/2018 Current use of proton pump inhibitor [Z (more content not included)...[facility]10-18-2024 NoteHNO ID: [id number] Author: OBED BALBUENA MD Service: ? Author Type: Physician Type: Progress Notes Filed: 06/24/2024 10:21 Note Text: VIRTUAL VISIT PROGRESS NOTE This is a virtual visit using [employer] Video Visit. It required patient-provider interaction for the medical decision making as documented below. I have communicated my name and active licensure. The patient's identity and physical location were verified at the time of this visit. Either the patient or their legal senior outside sales representative has been informed of the risks and benefits of -- and alternatives to -- treatment through a remote evaluation and consents to proceed with the evaluation remotely. Marcia Mascorro is a 68 year old female seen for a hiatal hernia. HISTORY REVIEWED (electronic chart updated): PAST MEDICAL HISTORY Diagnosis Date Abdominal aortic aneurysm (HCC) JOVANY (acute kidney injury) (HCC) Anaphylactic reaction due to contrast Anxiety Retana's esophagus Bile leak, postoperative CAD (coronary artery disease) CHF (congestive heart failure) (HCC) Chronic back pain Chronic pain low back, sees pain MGT: Dr. Nayak Compression fracture of thoracic vertebra (HCC) COPD (chronic obstructive pulmonary disease) (HCC) Depression Diabetes mellitus (HCC) Diverticulosis Essential hypertension, benign Sees Dr. Best GERD (gastroesophageal reflux disease) Hyperthyroidism Incontinence 07/07/2014 LV (left ventricular) mural thrombus 12/01/2023 Mixed hyperlipidemia Obesity Opioid dependence (HCC) 01/15/2020 In 180 as of 01/2020 per ER report from [facility]. Palpitation Primary cardiomyopathy (HCC) Pulmonary emphysema (HCC) SVT (supraventricular tachycardia) (HCC) Tremor PAST SURGICAL HISTORY Procedure Laterality Date 2D ECHO (EXEP) 01/19/2017 EF=55%, mild LVH, LA enlargement, TX and TI, Diastolic dysfunction. 2D ECHO (EXEP) 12/18/2017 EF=55%, mild LVH, mild diastolic dysfunct, COLONOSCOPY FLX DX W/COLLJ SPEC WHEN PFRMD 04/16/2016 Colonoscopy mac. repeat 10 yrs ESOPHAGOGASTRODUODENOSCOPY TRANSORAL DIAGNOSTIC 04/16/2016 EGD mac LAPAROSCOPIC CHOLECYSTECTOMY 12/09/2023 Dr. Tejada TOTAL ABDOMINAL HYSTERECT W/WO RMVL TUBE OVARY Hysterectomy, YANICK FAMILY HISTORY Problem Relation Age of Onset Breast Cancer Sister Heart Mother Diabetes Mother Stroke Mother Hypertension Mother Heart Maternal Grandmother Heart Brother Social History Tobacco Use Smoking status: Former Current packs/day: 0.00 Average packs/day: 1 pack/day for 40.0 years (40.0 ttl pk-yrs) Types: Cigarettes Start date: 09/21/1983 Quit date: 09/21/2023 Years since quittin.7 Smokeless tobacco: Never Tobacco comments: 7 cigarette. Quit in Middle of September 2023. Vaping Use Vaping status: Never Used Substance Use Topics Alcohol use: No Drug use: No Current Outpatient Medications Medication Sig guaiFENesin (MUCINEX) 600 mg 12 hr tablet Take 1 tablet by mouth two times a day as needed for cold/allergy symptoms (cough) for up to 7 days. omeprazole (PRILOSEC) 40 mg capsule Take 1 capsule by mouth once daily. Nutritional Supplements (OPTIMENTAL) liqd Take 237 mL by mouth once daily. Okay with what insurance covers Diaper,Brief, Adult,Disposable (DEPEND EASY FIT UNDERGARMENTS) Size Large pull up. Change depends once every 1-2 hrs. 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 senna-docusate (SENNA PLUS) 8.6-50 mg per tablet Take 1 tablet by mouth every morning AND 1 tablet daily at bedtime. tiotropium bromide (SPIRIVA RESPIMAT) 2.5 mcg/actuation inhaler Inhale 2 Puffs as instructed once daily. Inhale two puffs once daily. sucralfate (CARAFATE) 1 gram tablet Take 1 tablet by mouth before meals and at bedtime. sodium phosphate-sodium bisphosphate (FLEET) enema 133 mL by RECTAL route as needed for constipation. potassium chloride ER (KLOR-CON) 20 mEq tablet Take 1 tablet by mouth once daily. ondansetron (ZOFRAN) 4 mg tablet Take 1 tablet by mouth every 8 hours as needed for nausea/vomiting. magnesium hydroxide (MILK OF MAGNESIA) 400 mg/5 mL suspension Take 30 mL by mouth once daily as needed for constipation. lisinopril (ZESTRIL) 5 mg tablet Take 1 tablet by mouth once daily. gabapentin (NEURONTIN) 400 mg capsule Take 1 capsule by mouth three times a day for 180 days. furosemide (LASIX) 20 mg tablet Take 1 tablet by mouth two times a day. DULoxetine (CYMBALTA) 30 mg capsule Take 1 capsule by mouth once daily. docusate sodium (COLACE) 100 mg capsule Take 1 capsule by mouth two times a day as needed for constipation. dicyclomine (BENTYL) 10 mg capsule Take 2 capsules by mouth two times a day. clopidogrel (PLAVIX) 75 mg tablet Take 1 tablet by mouth once daily. Cholecalciferol, Vitamin D3, 125 mcg (5,000 unit) cap Take 1 capsule by mouth once daily. carvedilol (COREG) 6.25 mg tabl (more content not included)...[facility]10-18-[facility] History of Present illness Narrative* Obed Balbuena MD - 06/24/2024 9:55 AM EDT VIRTUAL VISIT PROGRESS NOTE This is a virtual visit using [employer] Video Visit. It required patient- provider interaction for the medical decision making as documented below. I have communicated my name and active licensure. The patient's identity and physical location wereverified at the time of this visit. Either the patient or their legal senior outside sales representative has been informed of the risks and benefits of -- and alternatives to -- treatment through a remote evaluation andconsents to proceed with the evaluation remotely. Marcia Mascorro is a 68 year old female seen for a hiatal hernia. HISTORY REVIEWED (electronic chart updated): PAST MEDICAL HISTORY Diagnosis Date Abdominal aortic aneurysm (HCC) JOVANY (acute kidney injury) (HCC) Anaphylactic reaction due to contrast Anxiety Retana's esophagus Bile leak, postoperative CAD (coronary artery disease) CHF (congestive heart failure) (HCC) Chronic back pain Chronic pain low back, sees pain MGT: Dr. Nayak Compression fracture of thoracic vertebra (HCC) COPD (chronic obstructive pulmonary disease) (HCC) Depression Diabetes mellitus (HCC) Diverticulosis Essential hypertension, benign Sees Dr. Best GERD (gastroesophageal reflux disease) Hyperthyroidism Incontinence 07/07/2014 LV (left ventricular) mural thrombus 12/01/2023 Mixed hyperlipidemia Obesity Opioid dependence (HCC) 01/15/2020 In 180 as of 01/2020 per ER report from [facility]. Palpitation Primary cardiomyopathy (HCC) Pulmonary emphysema (HCC) SVT (supraventricular tachycardia) (HCC) Tremor PAST SURGICAL HISTORY Procedure Laterality Date 2D ECHO (EXEP) 01/19/2017 EF=55%, mild LVH, LA enlargement, TX and TI, Diastolic dysfunction. 2D ECHO (EXEP) 12/18/2017 EF=55%, mild LVH, mild diastolic dysfunct, COLONOSCOPY FLX DX W/COLLJ SPEC WHEN PFRMD 04/16/2016 Colonoscopy mac. repeat 10 yrs ESOPHAGOGASTRODUODENOSCOPY TRANSORAL DIAGNOSTIC 04/16/2016 EGD mac LAPAROSCOPIC CHOLECYSTECTOMY 12/09/2023 Dr. Tejada TOTAL ABDOMINAL HYSTERECT W/WO RMVL TUBE OVARY Hysterectomy, YANICK FAMILY HISTORY Problem Relation Age of Onset Breast Cancer Sister Heart Mother Diabetes Mother Stroke Mother Hypertension Mother Heart Maternal Grandmother Heart Brother Social History Tobacco Use Smoking status: Former Current packs/day: 0.00 Average packs/day: 1 pack/day for 40.0 years (40.0 ttl pk-yrs) Types: Cigarettes Start date: 09/21/1983 Quit date: 09/21/2023 Years since quittin.7 Smokeless tobacco: Never Tobacco comments: 7 cigarette. Quit in Middle of September 2023. Vaping Use Vaping status: Never Used Substance Use Topics Alcohol use: No Drug use: No Current Outpatient Medications Medication Sig guaiFENesin (MUCINEX) 600 mg 12 hr tablet Take 1 tablet by mouth two times a day as needed for cold/allergy symptoms (cough) for up to 7 days. omeprazole (PRILOSEC) 40 mg capsule Take 1 capsule by mouth once daily. Nutritional Supplements (OPTIMENTAL) liqd Take 237 mL by mouth once daily. Okay with what insurancecovers Diaper,Brief, Adult,Disposable (DEPEND EASY FIT UNDERGARMENTS) Size Large pull up. Change depends once every 1-2 hrs. 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 senna-docusate (SENNA PLUS) 8.6-50 mg per tablet Take 1 tablet by mouth every morning AND 1 tablet daily at bedtime. tiotropium bromide (SPIRIVA RESPIMAT) 2.5 mcg/actuation inhaler Inhale 2 Puffs as instructed once daily. Inhale two puffs once daily. sucralfate (CARAFATE) 1 gram tablet Take 1 tablet by mouth before meals and at bedtime. sodium phosphate-sodium bisphosphate (FLEET) enema 133 mL by RECTAL route as needed for constipation. potassium chloride ER (KLOR-CON) 20 mEq tablet Take 1 tablet by mouth once daily. ondansetron (ZOFRAN) 4 mg tablet Take 1 tablet by mouth every 8 hours as needed for nausea/vomiting. magnesium hydroxide (MILK OF MAGNESIA) 400 mg/5 mL suspension Take 30 mL by mouth once daily as needed for constipation. lisinopril (ZESTRIL) 5 mg tablet Take 1 tablet by mouth once daily. gabapentin (NEURONTIN) 400 mg capsule Take 1 capsule by mouth three times a day for 180 days. furosemide (LASIX) 20 mg tablet Take 1 tablet by mouth two times a day. DULoxetine (CYMBALTA) 30 mg capsule Take 1 capsule by mouth once daily. docusate sodium (COLACE) 100 mg capsule Take 1 capsule by mouth two times a day as needed for constipation. dicyclomine (BENTYL) 10 mg capsule Take 2 capsules by mouth two times a day. clopidogrel (PLAVIX) 75 mg tablet Take 1 tablet by mouth once daily. Cholecalciferol, Vitamin D3, 125 mcg (5,000 unit) cap Take 1 capsule by mouth once daily. carvedilol (COREG) 6.25 mg tablet Take 1 tablet by mouth two times a day with meals. benzonatate (TESSALON PERLES) 100 mg capsule Take 1 capsule by mouth three times a day as needed for cough. albuterol-budesonide HFA (AIRSUPRA) 90-80 mcg/actuation inhaler Inhale 2 Puffs as instructed every 2 hours as needed for wheezing/shortness of breath. Do not take more than 12 inhalations in a 24 hour period. melatonin 10 mg tab Take 1 tablet by mouth at bedtime as needed for insomnia. oxyCODONE myristate (XTAMPZA ER) 27 mg CSpT Take 1 capsule by mouth two times a day. acetaminophen (TYLENOL) 650 mg suppository 650 mg by RECTAL route every 4 hours as needed. acetaminophen (TYLENOL) 325 mg tablet Take 650 mg by mouth every 4 hours as needed. aluminum-magnesium hydroxide-simethicone (MAALOX,MYLANTA,MAG-AL PLUS) 200-200-20 mg/5 mL suspensionTake 30 mL by mouth as needed. bisacodyl (DULCOLAX) 10 mg supp 10 mg by RECTAL route once daily as needed for constipation. No current facility-administered medications for this visit. ALLERGIES Allergen Reactions Contrast Dye [Iodin* Anaphylaxis REVIEW OF SYSTEMS: GENERAL: feeling well without fatigue, no recent change in weight HEENT: denies VEGA, change in hearing or vision, no other ENT complaints NECK: denies swelling or pain in neck RESPIRATORY: no cough, no wheezing or shortness of breath CARDIOVASCULAR: no chest pain, no palpitations GI: normal appetite, tolerating PO well, BMs normal, and no abdominal pain : urination is normal [employer] SAND: denies abnormal vaginal bleeding, no vaginal discharge, no breast mass/tenderness MUSCULOSKELETAL: denies any painful or swollen joints, no muscle aches SKIN: no rash PSYCH: denies depressed or anxious mood, sleep is normal HEMATOLOGY/LYMPHOLOGY: negative for prolonged bleeding, no swollen lymph nodes ENDOCRINE: denies cold/heat intolerance, denies polyuria or polydipsia, no goiter NEURO: no numbness or paresthesias and no weakness of the extremities PHYSICAL EXAMINATION: VIDEO EXAM: (if completed, performed via video enabled technology) No exam performed ASSESSMENT: This is a 68 year old female who presents with a symptomatic hiatal hernia. She has a long history of GERD including, Retana's esophagus, esophageal stricture. Her PMH is complex, with CHF (30% EF),COPD, current smoker. She is a candidate for hiatal hernia repair with a fundoplication. Will need preop manometry to evaluate esophageal function PLAN: Manometry Preop Cardiology evaluation Request prior EGD imaging otherwise will need a new one with us. There are no Patient Instructions on file for this visit. I spent a total of 30 minutes on the date of the service which included preparing to see the patient, [id number] patient care, completing clinical documentation, counseling and educating the patient/family/caregiver, and care coordination (not separately reported) Obed Balbuena MD [facility] Telephone encounter Note * Telephone Encounter - Nohemi Conley MA - 06/18/2024 9:41 AM EDT Daughter notified. Nohemi Conley MA [facility]10-12-[facility]24 Miscellaneous Notes* Telephone Encounter - Nohemi Conley MA - 06/18/2024 9:41 AM EDT Daughter notified. Nohemi Conley MA * Telephone Encounter - Alex Solorzano PA - 06/18/2024 8:07 AM EDT Negative COVID flu RSV documented [facility] encounterC[facility]10[facility] Telephone encounter Note * Telephone Encounter - Alex Solorzano PA - 06/18/2024 8:07 AM EDT Negative COVID flu RSV [facility] Work Phone: [phone] Telephone encounter Note* Telephone Encounter - Elyse Nieves LPN - 06/17/2024 4:23 PM EDT Patient given results and verbalized understanding of instructions given. Elyse Nieves LPN [facility]10-11-2024 Miscellaneous Notes* Telephone Encounter - Elyse Nieves LPN - 06/17/2024 4:23 PM EDT Patient given results and verbalized understanding of instructions given. Elyse Nieves LPN * Telephone Encounter - Chucky Zepeda APRN.CNP - 06/17/2024 3:53 PM EDT Please inform patient that chest x-ray is normal. Will call with COVID-19 results. Chucky Zepeda APRN.CNP documented in this encounterC[facility]10-[facility]-2024 Telephone encounter Note * Telephone Encounter - Chucky Zepeda APRN.CNP - 06/17/2024 3:53 PM EDT Please inform patient that chest x-ray is normal. Will call with COVID-19 results. Chucky Zepeda APRN.CNP [facility]10-11-2024 Instructions* Patient Instructions* Chucky Zepeda APRN.CNP - 06/17/2024 3:20 PM EDT How to Manage Common Symptoms Associated with COVID for Adults Fever- Fever is a temperature over 100.4 F and can occur when the body is fighting an infection. Tohelp treat a fever: Drink plenty of fluids and stay well hydrated. Eat small amounts of easy to digest food. Rest. Your body needs rest to recover, but getting up and moving around the house frequently is a good idea. You should try to continue doing your normal daily activities (bathing, toileting, grooming, cooking), though you will probably feel tired, and need to rest often. Avoid any heavy activity or exercise, as this will increase your body temperature. Dress in light clothing and stay covered in a light sheet. Keep the room temperature cool. Take a slightly warm (not cold or cool) bath, or apply damp washcloths to the forehead and wrists. Cough- Cough is a common symptom associated with COVID and can be bothersome. To help treat a cough: Stay well hydrated. Try warm water or tea with lemon and/or honey to help soothe the cough. Use a humidifier to add moisture to the air. Try a product with menthol, like a cough drop or a rub for your chest such as Vicks, which can helpreduce cough. Try cough drops. Avoid smoking and other strong odors or perfumes. Try breathing exercises to keep your lungs open and clear. Take a big deep breath through your noseand hold for 5 seconds before slowly releasing. Repeat frequently, while you are awake. Congestion- Runny nose or nasal congestion can occur with COVID. Treatment can help relieve symptoms: Try OTC nasal saline spray, or nasal saline rinse to relieve mucus congestion. Nasal strips can help keep nasal passages open, to increase airflow. Elevating your head with an extra pillow in bed can help reduce congestion. Using a humidifier can increase moisture in the air, and make breathing easier. Sore Throat- Another common symptom with COVID, can be managed at home by: Stay well hydrated. Gargle with salt water - mix teaspoon salt with 1 cup of warm water and gargle. This helps to loosen mucus in the back of the throat and may reduce discomfort. Try ice chips, popsicles or lozenges to soothe the throat. Nausea/Vomiting/Diarrhea- These are common symptoms, and staying hydrated is most important. If you are nauseous or vomiting, start with small sips of water every 10-15 minutes and increase astolerated. You can try sucking an ice cube too. If tolerating, you can try pedialyte or Gatorade, or flat sprite or santino-rufino. Start slowly and increase as you are able to. Instead of meals, try smaller, more frequent snacks. Try eating bland foods like crackers, toast, rice, and applesauce. Avoid spicy, greasy or fried foods and dairy containing foods. Even if you aren't feeling hungry due to lack of smell or taste, it is important to try to take in some food when you are able. After drinking and eating, rest in an upright position for up to two hours as needed to help decrease nauseous feelings. Try closing your eyes, avoid moving and watching TV. Avoid strong odors that can make you feel more nauseated. When to seek emergency medical attention Look for emergency warning signs for COVID-19. If having any of these symptoms, seek emergency medical care immediately: Trouble breathing Persistent pain or pressure in the chest New confusion Inability to wake or stay awake Bluish lips or face *This list is not all possible symptoms. Please call your medical provider for any other symptoms that are severe or concerning to you. documented in this encounterC[facility] History of Present illness Narrative* Luz King RT(R) - 06/17/2024 3:10 PM EDT Radiology Service Progress Note PATIENT NAME: Marcia Mascorro DATE OF SERVICE: June 17, 2024 TIME: 3:19 PM PATIENT IDENTITY VERIFICATION COMPLETED USING TWO (2) IDENTIFIERS: Name and Date of confirmedby patient verbally. FALL SCREENING: Has the patient had 2 falls in the last year or 1 fall with injury or currently using an Ambulatory Assistive Device (Walker, Cane, Wheelchair, Crutches, etc.)? No PATIENT GENDER DATA: Female. status: : No status: NO. PATIENT RELEVANT IMPLANT DATA REVIEWED: Yes PATIENT PRESENTS WITH AN IMPLANTABLE OR ATTACHED ANCHORMAN: No RADIOLOGY DEPARTMENT: General X-ray: Exam(s) Completed: Chest X-Ray PERIPHERAL IV DATA: Not applicable SIGNED BY: RT Diandra(R) June 17, 2024 3:19 PM documented in this encounterC[facility]10-11-2024 NoteHNO ID: [id number] Author: LUZ KING RT(Alejandra) Service: ? Author Type: Senior Support Engineer Type: Progress Notes Filed: 06/17/2024 15:29 Note Text: Radiology Service Progress Note PATIENT NAME: Marcia Mascorro DATE OF SERVICE: June 17, 2024 TIME: 3:19 PM PATIENT IDENTITY VERIFICATION COMPLETED USING TWO (2) IDENTIFIERS: Name and Date of confirmed by patient verbally. FALL SCREENING: Has the patient had 2 falls in the last year or 1 fall with injury or currently using an Ambulatory Assistive Device (Walker, Cane, Wheelchair, Crutches, etc.)? No PATIENT GENDER DATA: Female. status: : No status: NO. PATIENT RELEVANT IMPLANT DATA REVIEWED: Yes PATIENT PRESENTS WITH AN IMPLANTABLE OR ATTACHED ANCHORMAN: No RADIOLOGY DEPARTMENT: General X-ray: Exam(s) Completed: Chest X-Ray PERIPHERAL IV DATA: Not applicable SIGNED BY: Luz King, RT(R) June 17, 2024 3:19 [facility]10-11-2024 NoteHNO ID: [id number] Author: CHUCKY ZEPEDA APRN.[employer] Service: ? Author Type: Nurse Practitioner Type: Progress Notes Filed: 06/17/2024 15:54 Note Text: Subjective HPI Nontoxic-appearing female presents urgent care chief complaint flulike symptoms. Duration symptoms 4 days. Associated symptoms cough chest congestion headache shortness of breath with coughing wheezing sore throat fatigue. Low-grade fevers at home. Positive sick contacts. OTC medication little to no success. Denies any chest pain hemoptysis pleuritic pain new abdominal pain. Past medical history prescription medications allergies reviewed. .Patient presents with: Cough: Chest congestion, headache, SOB, wheeze, sore throat x 4 days PAST MEDICAL HISTORY Diagnosis Date Abdominal aortic aneurysm (HCC) JOVANY (acute kidney injury) (HCC) Anaphylactic reaction due to contrast Anxiety Retana's esophagus Bile leak, postoperative CAD (coronary artery disease) CHF (congestive heart failure) (HCC) Chronic back pain Chronic pain low back, sees pain MGT: Dr. Nayak Compression fracture of thoracic vertebra (HCC) COPD (chronic obstructive pulmonary disease) (HCC) Depression Diabetes mellitus (HCC) Diverticulosis Essential hypertension, benign Sees Dr. Best GERD (gastroesophageal reflux disease) Hyperthyroidism Incontinence 07/07/2014 LV (left ventricular) mural thrombus 12/01/2023 Mixed hyperlipidemia Obesity Opioid dependence (HCC) 01/15/2020 In 180 as of 01/2020 per ER report from [facility]. Palpitation Primary cardiomyopathy (HCC) Pulmonary emphysema (HCC) SVT (supraventricular tachycardia) (HCC) Tremor PAST SURGICAL HISTORY Procedure Laterality Date 2D ECHO (EXEP) 01/19/2017 EF=55%, mild LVH, LA enlargement, TX and TI, Diastolic dysfunction. 2D ECHO (EXEP) 12/18/2017 EF=55%, mild LVH, mild diastolic dysfunct, COLONOSCOPY FLX DX W/COLLJ SPEC WHEN PFRMD 04/16/2016 Colonoscopy mac. repeat 10 yrs ESOPHAGOGASTRODUODENOSCOPY TRANSORAL DIAGNOSTIC 04/16/2016 EGD mac LAPAROSCOPIC CHOLECYSTECTOMY 12/09/2023 Dr. Tejada TOTAL ABDOMINAL HYSTERECT W/WO RMVL TUBE OVARY Hysterectomy, YANICK ALLERGIES Contrast Dye [Iodine] MEDICATIONS omeprazole (PRILOSEC) 40 mg capsule Take 1 capsule by mouth once daily. Nutritional Supplements (OPTIMENTAL) liqd Take 237 mL by mouth once daily. Okay with what insurance covers Diaper,Brief, Adult,Disposable (DEPEND EASY FIT UNDERGARMENTS) Size Large pull up. Change depends once every 1-2 hrs. 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 senna-docusate (SENNA PLUS) 8.6-50 mg per tablet Take 1 tablet by mouth every morning AND 1 tablet daily at bedtime. tiotropium bromide (SPIRIVA RESPIMAT) 2.5 mcg/actuation inhaler Inhale 2 Puffs as instructed once daily. Inhale two puffs once daily. sucralfate (CARAFATE) 1 gram tablet Take 1 tablet by mouth before meals and at bedtime. sodium phosphate-sodium bisphosphate (FLEET) enema 133 mL by RECTAL route as needed for constipation. potassium chloride ER (KLOR-CON) 20 mEq tablet Take 1 tablet by mouth once daily. ondansetron (ZOFRAN) 4 mg tablet Take 1 tablet by mouth every 8 hours as needed for nausea/vomiting. magnesium hydroxide (MILK OF MAGNESIA) 400 mg/5 mL suspension Take 30 mL by mouth once daily as needed for constipation. lisinopril (ZESTRIL) 5 mg tablet Take 1 tablet by mouth once daily. gabapentin (NEURONTIN) 400 mg capsule Take 1 capsule by mouth three times a day for 180 days. furosemide (LASIX) 20 mg tablet Take 1 tablet by mouth two times a day. DULoxetine (CYMBALTA) 30 mg capsule Take 1 capsule by mouth once daily. docusate sodium (COLACE) 100 mg capsule Take 1 capsule by mouth two times a day as needed for constipation. dicyclomine (BENTYL) 10 mg capsule Take 2 capsules by mouth two times a day. clopidogrel (PLAVIX) 75 mg tablet Take 1 tablet by mouth once daily. Cholecalciferol, Vitamin D3, 125 mcg (5,000 unit) cap Take 1 capsule by mouth once daily. carvedilol (COREG) 6.25 mg tablet Take 1 tablet by mouth two times a day with meals. benzonatate (TESSALON PERLES) 100 mg capsule Take 1 capsule by mouth three times a day as needed for cough. albuterol-budesonide HFA (AIRSUPRA) 90-80 mcg/actuation inhaler Inhale 2 Puffs as instructed every 2 hours as needed for wheezing/shortness of breath. Do not take more than 12 inhalations in a 24 hour period. melatonin 10 mg tab Take 1 tablet by mouth at bedtime as needed for insomnia. oxyCODONE myristate (XTAMPZA ER) 27 mg CSpT Take 1 capsule by mouth two times a day. acetaminophen (TYLENOL) 650 mg suppository 650 mg by RECTAL route every 4 hours as needed. acetaminophen (TYLENOL) 325 mg tablet Take 650 mg by mouth every 4 hours as needed. aluminum-magnesium hydroxide-simethicone (MAALOX,MYLANTA,MAG-AL PLUS) 200-200-20 mg/5 mL suspension Take (more content not included)...[facility]10-11-2024 History of Present illness Narrative* Chucky Zepeda, 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.[employer] - 06/17/2024 3:04 PM EDT Subjective HPI Nontoxic-appearing female presents urgent care chief complaint flulike symptoms. Duration symptoms 4 days. Associated symptoms cough chest congestion headache shortness of breath with coughing wheezing sore throat fatigue. Low-grade fevers at home. Positive sick contacts. OTC medication little to no success. Denies any chest pain hemoptysis pleuritic pain new abdominal pain. Past medical history prescription medications allergies reviewed. .Patient presents with: Cough: Chest congestion, headache, SOB, wheeze, sore throat x 4 days PAST MEDICAL HISTORY Diagnosis Date Abdominal aortic aneurysm (HCC) JOVANY (acute kidney injury) (HCC) Anaphylactic reaction due to contrast Anxiety Retana's esophagus Bile leak, postoperative CAD (coronary artery disease) CHF (congestive heart failure) (HCC) Chronic back pain Chronic pain low back, sees pain MGT: Dr. Nayak Compression fracture of thoracic vertebra (HCC) COPD (chronic obstructive pulmonary disease) (HCC) Depression Diabetes mellitus (HCC) Diverticulosis Essential hypertension, benign Sees Dr. Best GERD (gastroesophageal reflux disease) Hyperthyroidism Incontinence 07/07/2014 LV (left ventricular) mural thrombus 12/01/2023 Mixed hyperlipidemia Obesity Opioid dependence (HCC) 01/15/2020 In 180 as of 01/2020 per ER report from [facility]. Palpitation Primary cardiomyopathy (HCC) Pulmonary emphysema (HCC) SVT (supraventricular tachycardia) (HCC) Tremor PAST SURGICAL HISTORY Procedure Laterality Date 2D ECHO (EXEP) 01/19/2017 EF=55%, mild LVH, LA enlargement, TX and TI, Diastolic dysfunction. 2D ECHO (EXEP) 12/18/2017 EF=55%, mild LVH, mild diastolic dysfunct, COLONOSCOPY FLX DX W/COLLJ SPEC WHEN PFRMD 04/16/2016 Colonoscopy mac. repeat 10 yrs ESOPHAGOGASTRODUODENOSCOPY TRANSORAL DIAGNOSTIC 04/16/2016 EGD mac LAPAROSCOPIC CHOLECYSTECTOMY 12/09/2023 Dr. Tejada TOTAL ABDOMINAL HYSTERECT W/WO RMVL TUBE OVARY Hysterectomy, YANICK ALLERGIES Contrast Dye [Iodine] MEDICATIONS omeprazole (PRILOSEC) 40 mg capsule Take 1 capsule by mouth once daily. Nutritional Supplements (OPTIMENTAL) liqd Take 237 mL by mouth once daily. Okay with what insurancecovers Diaper,Brief, Adult,Disposable (DEPEND EASY FIT UNDERGARMENTS) Size Large pull up. Change depends once every 1-2 hrs. 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 senna-docusate (SENNA PLUS) 8.6-50 mg per tablet Take 1 tablet by mouth every morning AND 1 tablet daily at bedtime. tiotropium bromide (SPIRIVA RESPIMAT) 2.5 mcg/actuation inhaler Inhale 2 Puffs as instructed once daily. Inhale two puffs once daily. sucralfate (CARAFATE) 1 gram tablet Take 1 tablet by mouth before meals and at bedtime. sodium phosphate-sodium bisphosphate (FLEET) enema 133 mL by RECTAL route as needed for constipation. potassium chloride ER (KLOR-CON) 20 mEq tablet Take 1 tablet by mouth once daily. ondansetron (ZOFRAN) 4 mg tablet Take 1 tablet by mouth every 8 hours as needed for nausea/vomiting. magnesium hydroxide (MILK OF MAGNESIA) 400 mg/5 mL suspension Take 30 mL by mouth once daily as needed for constipation. lisinopril (ZESTRIL) 5 mg tablet Take 1 tablet by mouth once daily. gabapentin (NEURONTIN) 400 mg capsule Take 1 capsule by mouth three times a day for 180 days. furosemide (LASIX) 20 mg tablet Take 1 tablet by mouth two times a day. DULoxetine (CYMBALTA) 30 mg capsule Take 1 capsule by mouth once daily. docusate sodium (COLACE) 100 mg capsule Take 1 capsule by mouth two times a day as needed for constipation. dicyclomine (BENTYL) 10 mg capsule Take 2 capsules by mouth two times a day. clopidogrel (PLAVIX) 75 mg tablet Take 1 tablet by mouth once daily. Cholecalciferol, Vitamin D3, 125 mcg (5,000 unit) cap Take 1 capsule by mouth once daily. carvedilol (COREG) 6.25 mg tablet Take 1 tablet by mouth two times a day with meals. benzonatate (TESSALON PERLES) 100 mg capsule Take 1 capsule by mouth three times a day as needed for cough. albuterol-budesonide HFA (AIRSUPRA) 90-80 mcg/actuation inhaler Inhale 2 Puffs as instructed every 2 hours as needed for wheezing/shortness of breath. Do not take more than 12 inhalations in a 24 hour period. melatonin 10 mg tab Take 1 tablet by mouth at bedtime as needed for insomnia. oxyCODONE myristate (XTAMPZA ER) 27 mg CSpT Take 1 capsule by mouth two times a day. acetaminophen (TYLENOL) 650 mg suppository 650 mg by RECTAL route every 4 hours as needed. acetaminophen (TYLENOL) 325 mg tablet Take 650 mg by mouth every 4 hours as needed. aluminum-magnesium hydroxide-simethicone (MAALOX,MYLANTA,MAG-AL PLUS) 200-200-20 mg/5 mL suspensionTake 30 mL by mouth as needed. bisacodyl (DULCOLAX) 10 mg supp 10 mg by RECTAL route once daily as needed for constipation. FAMILY HISTORY Problem Relation Age of Onset Breast Cancer Sister Heart Mother Diabetes Mother Stroke Mother Hypertension Mother Heart Maternal Grandmother Heart Brother Social History Tobacco Use Smoking status: Former Current packs/day: 0.00 Average packs/day: 1 pack/day for 40.0 years (40.0 ttl pk-yrs) Types: Cigarettes Start date: 09/21/1983 Quit date: 09/21/2023 Years since quittin.7 Smokeless tobacco: Never Tobacco comments: 7 cigarette. Quit in Middle of September 2023. Vaping Use Vaping status: Never Used Substance Use Topics Alcohol use: No Drug use: No BP 140/92 Pulse 89 Temp 36.6 C (97.8 F) Resp 20 Wt 86 kg (189 lb 9.5 oz) SpO2 95% BMI 31.55 kg/m Review of Systems Constitutional: Positive for chills and malaise/fatigue. Negative for fever. HENT: Positive for congestion and sore throat. Negative for ear discharge, ear pain and sinus pain. Eyes: Negative for blurred vision, pain, discharge and redness. Respiratory: Positive for cough and shortness of breath. Negative for hemoptysis, sputum production, wheezing and stridor. Cardiovascular: Negative for chest pain. Gastrointestinal: Negative for abdominal pain, diarrhea, nausea and vomiting. Musculoskeletal: Positive for myalgias. Skin: Negative for itching and rash. Neurological: Negative for dizziness and headaches. Objective Physical Exam Constitutional: General: She is not in acute distress. Appearance: She is not diaphoretic. HENT: Head: Normocephalic. Jaw: No trismus, tenderness, swelling or pain on movement. Nose: Congestion present. Mouth/Throat: Mouth: Mucous membranes are moist. Pharynx: Oropharynx is clear. Uvula midline. No pharyngeal swelling, oropharyngeal exudate, posterior oropharyngeal erythema or uvula swelling. Eyes: Conjunctiva/sclera: Conjunctivae normal. Pupils: Pupils are equal, round, and reactive to light. Cardiovascular: Rate and Rhythm: Normal rate and regular rhythm. Heart sounds: Normal heart sounds. Pulmonary: Effort: Pulmonary effort is normal. No tachypnea, accessory muscle usage or respiratory distress. Breath sounds: Normal breath sounds. No stridor. No wheezing, rhonchi or rales. Abdominal: General: There is no distension. Palpations: Abdomen is soft. Tenderness: There is no abdominal tenderness. There is no guarding or rebound. Musculoskeletal: Cervical back: Normal range of motion and neck supple. No edema, erythema, rigidity or tenderness. No pain with movement. Normal range of motion. Lymphadenopathy: Cervical: No cervical adenopathy. Skin: General: Skin is warm and dry. Neurological: Mental Status: She is alert and oriented to person, place, and time. ASSESSMENT/PLAN: 1. Acute cough - ICD9: 786.2, ICD10: R05.1 (primary diagnosis) - XR CHEST 2V FRONTAL/LAT 2. Viral illness - ICD9: 079.99, ICD10: B34.9 - COVID & INFLUENZA A/B & RSV PCR, ROUTINE IMPRESSION: No acute radiographic abnormality Nontoxic-appearing. Hemodynamically stable. Suspicious of viral etiology. Chest x-ray negative. Will test for COVID-19. If positive candidate for antiviral therapies. GFR 68 creatinine 0.92 this year. Patient was educated on supportive therapies. Patient will follow up with primary care provider as needed. Patient was instructed to immediately proceed to emergency room for any new, worsening, or symptoms lasting longer than anticipated. The patient's clinical presentation is otherwise unremarkable at this time. Based on exam and clinical finding, the patient is stable for discharge. Plan of care was discussed with patient. Patient verbalizes understanding and agrees to plan of c are. This note was generated using [employer] software. It may contain errors in wording, punctuation, or spelling. Chucky Zepeda APRN.DONNA documented in this encounterC[facility]09-27-2024 Telephone encounter Note * Telephone Encounter - Micah Paige RN - 06/03/2024 3:59 PM EDT Pt called in for lab results. Let her know, Labs overall are stable. No changes needed at this time and to keep next scheduled appointment. Thanks. Nora Crespo APRN.DONNA Paige RN [facility]09-27-2024 Miscellaneous Notes* Telephone Encounter - Micah Paige RN - 06/03/2024 3:59 PM EDT Pt called in for lab results. Let her know, Labs overall are stable. No changes needed at this time and to keep next scheduled appointment. Thanks. Nora Crespo APRN.DONNA Paige RN documented in this encounterCleveland Clinic [facility]09-23-2024 Telephone encounter Note * Telephone Encounter - Hallie Gonzalez RN - 05/30/2024 5:56 PM EDT Spoke with patient. Given message from provider's office. Patient verbalizes understanding. Hallie Gonzalez RN [facility] Miscellaneous Notes* Telephone Encounter - Hallie Gonzalez RN - 05/30/2024 5:56 PM EDT Spoke with patient. Given message from provider's office. Patient verbalizes understanding. Hallie Gonzalez RN * Telephone Encounter - Nora Crespo APRN.CNP - 05/30/2024 4:03 PM EDT Noted and agree, given the high MEDs and even higher with the use of both the norco and the XtampzaI do agree this should be addressed with pain management. * Telephone Encounter - Marisa Mcdermott LPN - 05/30/2024 3:41 PM EDT Spoke with Dr Forrest's office and they have been prescribing her medication. She was given a short supply as she was due for an appointment that was scheduled for today but missed. Spoke with daughter Marleny and made her aware that Dr. Forrest has been prescribing the oxycodone and missed appointment. Apparently daughter was asking for Nora to prescribe the norco for break through pain. Did encourage daughter to rescheduled missed appointment and discuss both pain medication usage. * Telephone Encounter - Nora Crespo APRN.CNP - 05/30/2024 2:43 PM EDT Patient has been seeing Dr. Rai for pain mgmt and was being prescribed her oxycodone (Xtampza ER) by the [facility] provider. Can we verify if they would take over prescribing of thisnow that she is discharged from [facility]. Thanks documented in this encounterC[facility]09-23-2024 Telephone encounter Note * Telephone Encounter - Nora Crespo APRN.CNP - 05/30/2024 4:03 PM EDT Noted and agree, given the high MEDs and even higher with the use of both the norco and the XtampzaI do agree this should be addressed with pain management. [facility] Telephone encounter Note* Telephone Encounter - Marisa Mcdermott LPN - 05/30/2024 3:41 PM EDT Spoke with Dr Forrest's office and they have been prescribing her medication. She was given a short supply as she was due for an appointment that was scheduled for today but missed. Spoke with daughter Marleny and made her aware that Dr. Forrest has been prescribing the oxycodone and missed appointment. Apparently daughter was asking for Nora to prescribe the norco for break through pain. Did encourage daughter to rescheduled missed appointment and discuss both pain medication usage. [facility] Telephone encounter Note* Telephone Encounter - Nora Crespo APRN.CNP - 05/30/2024 2:43 PM EDT Patient has been seeing Dr. Rai for pain mgmt and was being prescribed her oxycodone (Xtampza ER) by the [facility] provider. Can we verify if they would take over prescribing of thisnow that she is discharged from [facility]. Thanks [facility] Instructions* Patient Instructions* Nora Crespo APRN.CNP - 05/30/2024 1:25 PM EDT Get blood work today, I will call with the results. Keep follow up with general surgery Thursday. We changed your Protonix to omeprazole. Paper scripts for protein shakes and briefs. We will get your vaccine records to update that. I will let you know today or tomorrow what I figure out about your pain medicine. Keep scheduled follow up. documented in this encounterCleveland Clinic [facility]09-23-2024 NoteHNO ID: [id number] Author: NORA CRESPO APRN.CNP Service: ? Author Type: Nurse Practitioner Type: Progress Notes Filed: 05/30/2024 14:43 Note Text: SUBJECTIVE Marcia Mascorro is a 68 year old female here today for a check up on her medical problems. Chief Complaint Patient presents with: Recheck: or respiratory failure and verify medications Medication Request: is asking for omeprazole, is needing a refill on pain medications. Requesting a written script for liquid national supplement due to hiatal hernia is not eating very well and large pull's quantity of 100 if possible HPI Marcia is a 68 year old female established patient of Gabriel Galvan MD. Here today for follow up, was just recently discharged from [facility] on 05/24/2024 and moved in to [facility] for assisted living 3 days ago. Accompanied by her daughter today. She has a significant hiatal hernia. Going to see Dr. Mcduffie. Appetite is not great. Weight slowly decreasing. Would like a script for protein shakes and to change Protonix to omeprazole since omeprazole is more effective for her. She does have a history of chronic pain. Seeing Dr. Rai for pain. Was having prescriptions done by SNF provider while there. HTN controlled. No recent labs that she can recall. HLD, on atorvastatin. DM previously controlled, no recent hgba1c. Needs a script for adult briefs because of urinary incontinence issues , over active bladder. Would like to have a cat to help with her anxiety. Her medications were reviewed today and her list is now up to date. Medications Current Outpatient Medications Medication Sig senna-docusate (SENNA PLUS) 8.6-50 mg per tablet Take 1 tablet by mouth every morning AND 1 tablet daily at bedtime. tiotropium bromide (SPIRIVA RESPIMAT) 2.5 mcg/actuation inhaler Inhale 2 Puffs as instructed once daily. Inhale two puffs once daily. sucralfate (CARAFATE) 1 gram tablet Take 1 tablet by mouth before meals and at bedtime. sodium phosphate-sodium bisphosphate (FLEET) enema 133 mL by RECTAL route as needed for constipation. potassium chloride ER (KLOR-CON) 20 mEq tablet Take 1 tablet by mouth once daily. ondansetron (ZOFRAN) 4 mg tablet Take 1 tablet by mouth every 8 hours as needed for nausea/vomiting. magnesium hydroxide (MILK OF MAGNESIA) 400 mg/5 mL suspension Take 30 mL by mouth once daily as needed for constipation. LORazepam (ATIVAN) 1 mg tablet Take 1 tablet by mouth three times a day for 14 days. lisinopril (ZESTRIL) 5 mg tablet Take 1 tablet by mouth once daily. gabapentin (NEURONTIN) 400 mg capsule Take 1 capsule by mouth three times a day for 180 days. furosemide (LASIX) 20 mg tablet Take 1 tablet by mouth two times a day. DULoxetine (CYMBALTA) 30 mg capsule Take 1 capsule by mouth once daily. docusate sodium (COLACE) 100 mg capsule Take 1 capsule by mouth two times a day as needed for constipation. dicyclomine (BENTYL) 10 mg capsule Take 2 capsules by mouth two times a day. clopidogrel (PLAVIX) 75 mg tablet Take 1 tablet by mouth once daily. Cholecalciferol, Vitamin D3, 125 mcg (5,000 unit) cap Take 1 capsule by mouth once daily. carvedilol (COREG) 6.25 mg tablet Take 1 tablet by mouth two times a day with meals. benzonatate (TESSALON PERLES) 100 mg capsule Take 1 capsule by mouth three times a day as needed for cough. albuterol-budesonide HFA (AIRSUPRA) 90-80 mcg/actuation inhaler Inhale 2 Puffs as instructed every 2 hours as needed for wheezing/shortness of breath. Do not take more than 12 inhalations in a 24 hour period. melatonin 10 mg tab Take 1 tablet by mouth at bedtime as needed for insomnia. oxyCODONE myristate (XTAMPZA ER) 27 mg CSpT Take 1 capsule by mouth two times a day. acetaminophen (TYLENOL) 650 mg suppository 650 mg by RECTAL route every 4 hours as needed. acetaminophen (TYLENOL) 325 mg tablet Take 650 mg by mouth every 4 hours as needed. aluminum-magnesium hydroxide-simethicone (MAALOX,MYLANTA,MAG-AL PLUS) 200-200-20 mg/5 mL suspension Take 30 mL by mouth as needed. bisacodyl (DULCOLAX) 10 mg supp 10 mg by RECTAL route once daily as needed for constipation. omeprazole (PRILOSEC) 40 mg capsule Take 1 capsule by mouth once daily. Nutritional Supplements (OPTIMENTAL) liqd Take 237 mL by mouth once daily. Okay with what insurance covers Diaper,Brief, Adult,Disposable (DEPEND EASY FIT UNDERGARMENTS) Size Large pull up. Change depends once every 1-2 hrs. 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 No current facility-administered medications for this visit. ALLERGIES Allergen Reactions Contrast Dye [Iodin* Anaphylaxis ACTIVE PROBLEM LIST Retana's Esophagus - 08/21/2016 (A priority) Mixed Hyperlipidemia - 07/10/2014 (A priority) Anxiety (A priority) Comment: Per counseling center Depression (A priority) Gerd (Gastroesophageal Reflux (more content not included)...[facility]09-23-2024 History of Present illness Narrative* Nora Crespo APRN.[employer] - 05/30/2024 12:43 PM EDT SUBJECTIVE Marcia Mascorro is a 68 year old female here today for a check up on her medical problems. Chief Complaint Patient presents with: Recheck: or respiratory failure and verify medications Medication Request: is asking for omeprazole, is needing a refill on pain medications. Requesting a written script for liquid national supplement due to hiatal hernia is not eating very well and large pull's quantity of 100 if possible HPI Marcia is a 68 year old female established patient of Gabriel Galvan MD. Here today for follow up, was just recently discharged from [facility] on 05/24/2024 and moved in to [facility] for assisted living 3 days ago. Accompanied by her daughter today. She has a significant hiatal hernia. Going to see Dr. Mcduffie. Appetite is not great. Weight slowly decreasing. Would like a script for protein shakes and to change Protonix to omeprazole since omeprazole is more effective for her. She does have a history of chronic pain. Seeing Dr. Rai for pain. Was having prescriptions done by SNF provider while there. HTN controlled. No recent labs that she can recall. HLD, on atorvastatin. DM previously controlled,no recent hgba1c. Needs a script for adult briefs because of urinary incontinence issues , over active bladder. Would like to have a cat to help with her anxiety. Her medications were reviewed today and her list is now up to date. Medications Current Outpatient Medications Medication Sig senna-docusate (SENNA PLUS) 8.6-50 mg per tablet Take 1 tablet by mouth every morning AND 1 tablet daily at bedtime. tiotropium bromide (SPIRIVA RESPIMAT) 2.5 mcg/actuation inhaler Inhale 2 Puffs as instructed once daily. Inhale two puffs once daily. sucralfate (CARAFATE) 1 gram tablet Take 1 tablet by mouth before meals and at bedtime. sodium phosphate-sodium bisphosphate (FLEET) enema 133 mL by RECTAL route as needed for constipation. potassium chloride ER (KLOR-CON) 20 mEq tablet Take 1 tablet by mouth once daily. ondansetron (ZOFRAN) 4 mg tablet Take 1 tablet by mouth every 8 hours as needed for nausea/vomiting. magnesium hydroxide (MILK OF MAGNESIA) 400 mg/5 mL suspension Take 30 mL by mouth once daily as needed for constipation. LORazepam (ATIVAN) 1 mg tablet Take 1 tablet by mouth three times a day for 14 days. lisinopril (ZESTRIL) 5 mg tablet Take 1 tablet by mouth once daily. gabapentin (NEURONTIN) 400 mg capsule Take 1 capsule by mouth three times a day for 180 days. furosemide (LASIX) 20 mg tablet Take 1 tablet by mouth two times a day. DULoxetine (CYMBALTA) 30 mg capsule Take 1 capsule by mouth once daily. docusate sodium (COLACE) 100 mg capsule Take 1 capsule by mouth two times a day as needed for constipation. dicyclomine (BENTYL) 10 mg capsule Take 2 capsules by mouth two times a day. clopidogrel (PLAVIX) 75 mg tablet Take 1 tablet by mouth once daily. Cholecalciferol, Vitamin D3, 125 mcg (5,000 unit) cap Take 1 capsule by mouth once daily. carvedilol (COREG) 6.25 mg tablet Take 1 tablet by mouth two times a day with meals. benzonatate (TESSALON PERLES) 100 mg capsule Take 1 capsule by mouth three times a day as needed for cough. albuterol-budesonide HFA (AIRSUPRA) 90-80 mcg/actuation inhaler Inhale 2 Puffs as instructed every 2 hours as needed for wheezing/shortness of breath. Do not take more than 12 inhalations in a 24 hour period. melatonin 10 mg tab Take 1 tablet by mouth at bedtime as needed for insomnia. oxyCODONE myristate (XTAMPZA ER) 27 mg CSpT Take 1 capsule by mouth two times a day. acetaminophen (TYLENOL) 650 mg suppository 650 mg by RECTAL route every 4 hours as needed. acetaminophen (TYLENOL) 325 mg tablet Take 650 mg by mouth every 4 hours as needed. aluminum-magnesium hydroxide-simethicone (MAALOX,MYLANTA,MAG-AL PLUS) 200-200-20 mg/5 mL suspensionTake 30 mL by mouth as needed. bisacodyl (DULCOLAX) 10 mg supp 10 mg by RECTAL route once daily as needed for constipation. omeprazole (PRILOSEC) 40 mg capsule Take 1 capsule by mouth once daily. Nutritional Supplements (OPTIMENTAL) liqd Take 237 mL by mouth once daily. Okay with what insurancecovers Diaper,Brief, Adult,Disposable (DEPEND EASY FIT UNDERGARMENTS) Size Large pull up. Change depends once every 1-2 hrs. 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 No current facility-administered medications for this visit. ALLERGIES Allergen Reactions Contrast Dye [Iodin* Anaphylaxis ACTIVE PROBLEM LIST Retana's Esophagus - 08/21/2016 (A priority) Mixed Hyperlipidemia - 07/10/2014 (A priority) Anxiety (A priority) Comment: Per counseling center Depression (A priority) Gerd (Gastroesophageal Reflux Disease) (A priority) Essential Hypertension, Benign (A priority) [...] Dr. Nayak Lumbago - 12/30/2005 (M priority) Abdominal Aneurysm ([facility]) - 04/11/2024 Jovany (Acute Kidney Injury) ([facility]) - 12/23/2023 Abdominal Pain - 12/20/2023 Anaphylaxis Due to Contrast Media - 12/20/2023 S/P Cholecystectomy - 12/20/2023 Postoperative Abscess - 12/20/2023 Postoperative Bile Leak - 12/20/2023 Copd (Chronic Obstructive Pulmonary Disease) ([facility]) - 12/20/2023 Chronic Combined Systolic and Diastolic Chf (Congestive Heart Failure) ([facility]) - 12/20/2023 Coronary Artery Disease Due to Lipid Rich Plaque - 12/13/2023 Pulmonary Emphysema ([facility]) - 12/13/2023 Obesity, Class I, Bmi 30-34.9 - 12/11/2023 Choledocholithiasis - 12/07/2023 Chronic Back Pain - 12/07/2023 Compression Fracture of Thoracic Vertebra ([facility]) - 12/01/2023 Diabetes Mellitus ([facility]) - 01/13/2023 Cardiomyopathy in Disease Classified Elsewhere ([facility]) - 01/13/2023 Supraventricular Tachycardia ([facility]) - 01/13/2023 Oab (Overactive Bladder) - 02/18/2019 Elevated Plasma Metanephrines - 03/17/2018 Hyperthyroidism - 03/17/2018 High Catecholamines - 03/17/2018 Tremor - 06/24/2017 Memory Difficulties - 06/24/2017 Neoplasm of Uncertain Behavior of Back - 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 Quit in Middle of September 2023. Vaping Use Vaping status: Never Used Substance Use Topics Alcohol use: No Drug use: No Review of Systems Respiratory: Negative. Cardiovascular: Negative. Gastrointestinal: Positive for abdominal pain and nausea. OBJECTIVE BP 112/80 Pulse 69 Wt 190 lb 11.2 oz (86.5kg) SpO2 93% Physical Exam Vitals and nursing note reviewed. Constitutional: General: She is awake. She is not in acute distress. Appearance: Normal appearance. She is well-developed and well-groomed. She is not ill-appearing, toxic-appearing or diaphoretic. HENT: Head: Normocephalic. Right Ear: External ear normal. Left Ear: External ear normal. Nose: Nose normal. Eyes: General: Vision grossly intact. Conjunctiva/sclera: Conjunctivae normal. Pupils: Pupils are equal, round, and reactive to light. Neck: Vascular: No JVD. Trachea: Trachea normal. Cardiovascular: Rate and Rhythm: Normal rate and regular rhythm. Pulses: Normal pulses. Heart sounds: Normal heart sounds. No murmur heard. Pulmonary: Effort: Pulmonary effort is normal. No accessory muscle usage, prolonged expiration or respiratory distress. Breath sounds: Normal breath sounds. Musculoskeletal: Cervical back: Neck supple. Skin: General: Skin is warm and dry. Capillary Refill: Capillary refill takes less than 2 seconds. Neurological: General: No focal deficit present. Mental Status: She is alert and oriented to person, place, and time. Mental status is at baseline. Psychiatric: Attention and Perception: Attention and perception normal. Mood and Affect: Mood and affect normal. Speech: Speech normal. Behavior: Behavior normal. Behavior is cooperative. Thought Content: Thought content normal. Cognition and Memory: Cognition and memory normal. Judgment: Judgment normal. ASSESSMENT/PLAN: 1. Hiatal hernia - ICD9: 553.3, ICD10: K44.9 (primary diagnosis) Seeing specialist Thursday - NUTRITIONAL SUPPLEMENTS ORAL LIQUID 2. Epigastric pain - ICD9: 789.06, ICD10: R10.13 Ok to switch PPI - OMEPRAZOLE 40 MG CAPSULE,DELAYED RELEASE 3. Encounter for therapeutic drug monitoring - ICD9: V58.83, ICD10: Z51.81 - COMPLETE BLOOD COUNT AND DIFFERENTIAL - COMPREHENSIVE METABOLIC PANEL - MAGNESIUM 4. Mixed hyperlipidemia - ICD9: 272.2, ICD10: E78.2 - Control undetermined, due for labs - Continue current medications - Counseled on healthy diet and regular exercise - LIPID PANEL, NONFASTING 5. Type 2 diabetes mellitus with other specified complication, without long-term current use of insulin (HCC) - ICD9: 250.80, ICD10: E11.69 - Control undetermined, due for labs - Counseled on healthy diet and regular exercise - Discussed need for and benefit of weight loss. BMI 31.73 kg/(m^2) - HEMOGLOBIN A1C - ALBUMIN/CREATININE RATIO, URINE 6. Vitamin D deficiency - ICD9: 268.9, ICD10: E55.9 - VITAMIN D 25 HYDROXY 7. Stress incontinence, female - ICD9: 625.6, ICD10: N39.3 - DEPEND EASY FIT UNDERGARMENTS MISC 8. OAB (overactive bladder) - ICD9: 596.51, ICD10: N32.81 - DEPEND EASY FIT UNDERGARMENTS MISC 9. Essential hypertension, benign - ICD9: 401.1, ICD10: I10 - Controlled - Continue current medications - Recommend home blood pressure monitoring, to bring results to next visit - Encouraged sodium restriction, DASH or Mediterranean diet - Recommend regular aerobic exercise 10. Other chronic pain - ICD9: 338.29, ICD10: G89.29 Will check with pain mgmt if they will prescribe. 11. Anxiety - ICD9: 300.00, ICD10: F41.9 Ok for cat 12. Weight loss, non-intentional - ICD9: 783.21, ICD10: R63.4 - NUTRITIONAL SUPPLEMENTS ORAL LIQUID Portions of this note have been entered by ancillary staff. I have reviewed and when necessary edited, so that they are an adequate record of my encounter with this patient Please note that parts of this document were created using voice recognition software and therefore may contain grammatical errors. Patient verbalizes understanding of instructions from today's visit and in agreement with treatmentplan. Questions answered. Agrees to call the office if questions, concerns of issues with acute symptoms not improving or if they worsen. See diagnoses and orders for additional plan(s). Allergies and medications were reviewed, list was updated, and refills given if needed. Past medical, surgical, social, and family history reviewed and updated as appropriate. Encouraged proper diet & exercise as well as compliance with taking medications. Age- appropriate health preventative measures were discussed. Return if symptoms worsen or fail to improve, for Keep next scheduled appointment.. Nora Crespo APRN-DONNA [facility] Telephone encounter Note * Telephone Encounter - Gabriel Galvan MD - 05/24/2024 9:06 PM EDT Has follow up with Nora this month Okayed meds with refills for 6 months except for prn meds since not sure how often needs to take and only 14 days worth of lorazepam since prior RX was for prn use, and at [facility] they were giving it toher TID routinely. Can determine with Nora if needs to be kept on TID routinely. Not sure if needed Tylenol RX and if all three as on the med list from [facility] for prn use. The following approved medication requests have been transmitted electronically. Requested Prescriptions Signed Prescriptions Disp Refills senna-docusate (SENNA PLUS) 8.6-50 mg per tablet 60 tablet 5 Sig: Take 1 tablet by mouth every morning AND 1 tablet daily at bedtime. Authorizing Provider: GABRIEL GALVAN tiotropium bromide (SPIRIVA RESPIMAT) 2.5 mcg/actuation inhaler 1 Each 5 Sig: Inhale 2 Puffs as instructed once daily. Inhale two puffs once daily. Authorizing Provider: GABRIEL GALVAN sucralfate (CARAFATE) 1 gram tablet 56 tablet 5 Sig: Take 1 tablet by mouth before meals and at bedtime. Authorizing Provider: GABRIEL GALVAN sodium phosphate-sodium bisphosphate (FLEET) enema 1 Each 2 Si mL by RECTAL route as needed for constipation. Authorizing Provider: GABRIEL GALVAN potassium chloride ER (KLOR-CON) 20 mEq tablet 30 tablet 5 Sig: Take 1 tablet by mouth once daily. Authorizing Provider: GABRIEL GALVAN pantoprazole DR (PROTONIX) 40 mg tablet 60 tablet 5 Sig: Take 1 tablet by mouth two times a day. Authorizing Provider: GABRIEL GALVAN ondansetron (ZOFRAN) 4 mg tablet 30 tablet 1 Sig: Take 1 tablet by mouth every 8 hours as needed for nausea/vomiting. Authorizing Provider: GABRIEL GALVAN magnesium hydroxide (MILK OF MAGNESIA) 400 mg/5 mL suspension 118 mL 3 Sig: Take 30 mL by mouth once daily as needed for constipation. Authorizing Provider: GABRIEL GALVAN LORazepam (ATIVAN) 1 mg tablet 42 tablet 0 Sig: Take 1 tablet by mouth three times a day for 14 days. Authorizing Provider: GABRIEL GALVAN lisinopril (ZESTRIL) 5 mg tablet 30 tablet 5 Sig: Take 1 tablet by mouth once daily. Authorizing Provider: GABRIEL GALVAN gabapentin (NEURONTIN) 400 mg capsule 90 capsule 5 Sig: Take 1 capsule by mouth three times a day for 180 days. Authorizing Provider: GABRIEL GALVAN furosemide (LASIX) 20 mg tablet 60 tablet 5 Sig: Take 1 tablet by mouth two times a day. Authorizing Provider: GABRIEL GALVAN famotidine (PEPCID) 40 mg tablet 30 tablet 5 Sig: Take 1 tablet by mouth once daily. Authorizing Provider: GABRIEL GALVAN DULoxetine (CYMBALTA) 30 mg capsule 30 capsule 5 Sig: Take 1 capsule by mouth once daily. Authorizing Provider: GABRIEL GALVAN docusate sodium (COLACE) 100 mg capsule 60 capsule 5 Sig: Take 1 capsule by mouth two times a day as needed for constipation. Authorizing Provider: GABRIEL GALVAN dicyclomine (BENTYL) 10 mg capsule 60 capsule 5 Sig: Take 2 capsules by mouth two times a day. Authorizing Provider: GABRIEL GALVAN clopidogrel (PLAVIX) 75 mg tablet 30 tablet 5 Sig: Take 1 tablet by mouth once daily. Authorizing Provider: GABRIEL GALVAN Cholecalciferol, Vitamin D3, 125 mcg (5,000 unit) cap 30 capsule 5 Sig: Take 1 capsule by mouth once daily. Authorizing Provider: GABRIEL GALVAN carvedilol (COREG) 6.25 mg tablet 60 tablet 5 Sig: Take 1 tablet by mouth two times a day with meals. Authorizing Provider: GABRIEL GALVAN atorvastatin (LIPITOR) 40 mg tablet 30 tablet 5 Sig: Take 1 tablet by mouth daily at bedtime. Authorizing Provider: GABRIEL GALVAN benzonatate (TESSALON PERLES) 100 mg capsule 30 capsule 5 Sig: Take 1 capsule by mouth three times a day as needed for cough. Authorizing Provider: GABRIEL GALVAN albuterol-budesonide HFA (AIRSUPRA) 90-80 mcg/actuation inhaler 1 Each 5 Sig: Inhale 2 Puffs as instructed every 2 hours as needed for wheezing/shortness of breath. Do not take more than 12 inhalations in a 24 hour period. Authorizing Provider: GABRIEL GALVAN MD [facility]09-17-[facility]24 Miscellaneous Notes* Telephone Encounter - Gabriel Galvan MD - 05/24/2024 9:06 PM EDT Has follow up with Nora this month Okayed meds with refills for 6 months except for prn meds since not sure how often needs to take and only 14 days worth of lorazepam since prior RX was for prn use, and at [facility] they were giving it toher TID routinely. Can determine with Nora if needs to be kept on TID routinely. Not sure if needed Tylenol RX and if all three as on the med list from [facility] for prn use. The following approved medication requests have been transmitted electronically. Requested Prescriptions Signed Prescriptions Disp Refills senna-docusate (SENNA PLUS) 8.6-50 mg per tablet 60 tablet 5 Sig: Take 1 tablet by mouth every morning AND 1 tablet daily at bedtime. Authorizing Provider: GABRIEL GALVAN tiotropium bromide (SPIRIVA RESPIMAT) 2.5 mcg/actuation inhaler 1 Each 5 Sig: Inhale 2 Puffs as instructed once daily. Inhale two puffs once daily. Authorizing Provider: GABRIEL GALVAN sucralfate (CARAFATE) 1 gram tablet 56 tablet 5 Sig: Take 1 tablet by mouth before meals and at bedtime. Authorizing Provider: GABRIEL GALVAN sodium phosphate-sodium bisphosphate (FLEET) enema 1 Each 2 Si mL by RECTAL route as needed for constipation. Authorizing Provider: GABRIEL GALVAN potassium chloride ER (KLOR-CON) 20 mEq tablet 30 tablet 5 Sig: Take 1 tablet by mouth once daily. Authorizing Provider: GABRIEL GALVAN pantoprazole DR (PROTONIX) 40 mg tablet 60 tablet 5 Sig: Take 1 tablet by mouth two times a day. Authorizing Provider: GABRIEL GALVAN ondansetron (ZOFRAN) 4 mg tablet 30 tablet 1 Sig: Take 1 tablet by mouth every 8 hours as needed for nausea/vomiting. Authorizing Provider: GABRIEL GALVAN magnesium hydroxide (MILK OF MAGNESIA) 400 mg/5 mL suspension 118 mL 3 Sig: Take 30 mL by mouth once daily as needed for constipation. Authorizing Provider: GABRIEL GALVAN LORazepam (ATIVAN) 1 mg tablet 42 tablet 0 Sig: Take 1 tablet by mouth three times a day for 14 days. Authorizing Provider: GABRIEL GALVAN lisinopril (ZESTRIL) 5 mg tablet 30 tablet 5 Sig: Take 1 tablet by mouth once daily. Authorizing Provider: GABRIEL GALVAN gabapentin (NEURONTIN) 400 mg capsule 90 capsule 5 Sig: Take 1 capsule by mouth three times a day for 180 days. Authorizing Provider: GABRIEL GALVAN furosemide (LASIX) 20 mg tablet 60 tablet 5 Sig: Take 1 tablet by mouth two times a day. Authorizing Provider: GABRIEL GALVAN famotidine (PEPCID) 40 mg tablet 30 tablet 5 Sig: Take 1 tablet by mouth once daily. Authorizing Provider: GABRIEL GALVAN DULoxetine (CYMBALTA) 30 mg capsule 30 capsule 5 Sig: Take 1 capsule by mouth once daily. Authorizing Provider: GABRIEL GALVAN docusate sodium (COLACE) 100 mg capsule 60 capsule 5 Sig: Take 1 capsule by mouth two times a day as needed for constipation. Authorizing Provider: GABRIEL GALVAN dicyclomine (BENTYL) 10 mg capsule 60 capsule 5 Sig: Take 2 capsules by mouth two times a day. Authorizing Provider: GABRIEL GALVAN clopidogrel (PLAVIX) 75 mg tablet 30 tablet 5 Sig: Take 1 tablet by mouth once daily. Authorizing Provider: GABRIEL GALVAN Cholecalciferol, Vitamin D3, 125 mcg (5,000 unit) cap 30 capsule 5 Sig: Take 1 capsule by mouth once daily. Authorizing Provider: GABRIEL GALVAN carvedilol (COREG) 6.25 mg tablet 60 tablet 5 Sig: Take 1 tablet by mouth two times a day with meals. Authorizing Provider: GABRIEL GALVAN atorvastatin (LIPITOR) 40 mg tablet 30 tablet 5 Sig: Take 1 tablet by mouth daily at bedtime. Authorizing Provider: GABRIEL GALVAN benzonatate (TESSALON PERLES) 100 mg capsule 30 capsule 5 Sig: Take 1 capsule by mouth three times a day as needed for cough. Authorizing Provider: GABRIEL GALVAN albuterol-budesonide HFA (AIRSUPRA) 90-80 mcg/actuation inhaler 1 Each 5 Sig: Inhale 2 Puffs as instructed every 2 hours as needed for wheezing/shortness of breath. Do not take more than 12 inhalations in a 24 hour period. Authorizing Provider: GABRIEL GALVAN MD * Telephone Encounter - Linh Villalobos RN - 05/24/2024 2:42 PM EDT Isaak from [facility] and states that patient is being admitted there from [facility]. Isaak is faxing over medication list from [facility] and is asking if provider can send patient's prescriptions to [facility]? Please review and advise, Linh Villalobos RN documented in [facility] Telephone encounter Note * Telephone Encounter - Linh Villalobos RN - 05/24/2024 2:42 PM EDT Isaak from [facility] and states that patient is being admitted there from [facility]. Isaak is faxing over medication list from [facility] and is asking if provider can send patient's prescriptions to [facility]? Please review and advise, Linh Villalobos RN [facility]08-19-2024 History of Present illness Narrative* Darrell Tejada MD - 04/25/2024 2:55 PM EDT Subjective: Patient is status post a CAT scan of the abdomen and pelvis which did not show anythingto get residual disease from the abscess she had in the right upper quadrant. She is still complaining of some discomfort epigastric left upper quadrant area. CAT scan did show that she had probably about 30 to 40% of her stomach located within the chest itself. She is having problems eating. She is having problems with discomfort. Patient is status post laparoscopic cholecystectomy and status post development of an abdominal abscess in the right upper quadrant. Percutaneously she had a drain placed this grew out Enterobacter and rare Serratia. The drain had subsequently fallen out she is having some slight increase in her pain which necessitated obtaining the repeat CT scan. Objective: Blood pressure 100/72, pulse 83, temperature 36.6 C (97.8 F), height 165.1 cm (5' 5), weight 88 kg (194 lb), SpO2 100%. Abdomen is obese soft no rebound guarding or peritoneal signs are identified. Assessment:Hiatal hernia Generalized abdominal pain History of abdominal abscess Plan: I think, to refer her up to the main campus to be seen by Dr. Mcduffie. I am not sure if he is going to order any extra test on her. But I informed her that he may. Given her symptomatology reasonably sure he is probably going to offer her some form of surgery. [facility] Instructions* Patient Instructions* Nora Crespo APRN.DONNA - 04/11/2024 2:09 PM EDT Reschedule with GI. Schedule with general surgery. Eat small, frequent meals. Try to limit any spicy foods and caffeine containing beverages and carbonated beverages. Keep taking medications as prescribed. [facility] History of Present illness Narrative* Nora Crespo APRN.DONNA - 04/11/2024 1:58 PM EDT SUBJECTIVE Marcia Mascorro is a 68 year old female here today for a check up on her medical problems. Chief Complaint Patient presents with: Recheck HPI Marcia Mascorro is a 68 year old female. She is an established patient of Gabriel Galvan MD. [facility] for a follow up on abdominal pain. Seen 03/14 and discussed concerns of continued pain. Resident at [facility]. Had cholecystectomy and abdominal abscess in 12/2023. Known history of Retana's esophagus. Continued abdominal pain rated as pain 6/10. Worse when eating. Nausea but no vomiting. Pain isepigastric. Recent work up with labs and CT. Recent CT with large hiatal hernia. Already being treated PPI, H2 cora, and on Carafate. Not having GERD/heart burn. Also on dicyclomine. Has been referred to general surgery and GI. Recent pneumonia. Breathing okay, no current cough. History of smoking, chronic bronchitis. Other history significant for cardiomyopathy, CHF. ECHO done last year. EF 20%. Abdominal aorta seen on recent CT. Stable. No recent issues with chest pain, chest tightness or palpitations. Blood pressure stable. Type 2 DM, last hgba1c well controlled. Her medications were reviewed today and her list is now up to date. Medications Current Outpatient Medications Medication Sig oxyCODONE myristate (XTAMPZA ER) 27 mg CSpT Take 1 capsule by mouth two times a day. lisinopril (ZESTRIL) 5 mg tablet Take 5 mg by mouth once daily. acetaminophen (TYLENOL) 650 mg suppository 650 mg by RECTAL route every 4 hours as needed. acetaminophen (TYLENOL) 325 mg tablet Take 650 mg by mouth every 4 hours as needed. potassium chloride ER (KLOR-CON) 20 mEq tablet Take 20 mEq by mouth once daily. sodium phosphate-sodium bisphosphate (FLEET) enema 1 Enema by RECTAL route as needed. dicyclomine (BENTYL) 10 mg capsule Take 20 mg by mouth two times a day. aluminum-magnesium hydroxide-simethicone (MAALOX,MYLANTA,MAG-AL PLUS) 200-200-20 mg/5 mL suspensionTake 30 mL by mouth as needed. melatonin 10 mg tab Take 1 tablet by mouth at bedtime as needed for insomnia. famotidine (PEPCID) 40 mg tablet Take 1 tablet by mouth once daily. bisacodyl (DULCOLAX) 10 mg supp 10 mg by RECTAL route once daily as needed for constipation. magnesium hydroxide (MILK OF MAGNESIA) 400 mg/5 mL suspension Take 30 mL by mouth once daily as needed for constipation. clopidogrel (PLAVIX) 75 mg tablet Take 1 tablet by mouth once daily. Patient should start on December 17, 2023. albuterol-budesonide HFA (AIRSUPRA) 90-80 mcg/actuation inhaler Take 2 Puffs by mouth every 2 hoursas needed for wheezing/shortness of breath. Do not take more than 12 inhalations in a 24 hour period. docusate sodium (COLACE) 100 mg capsule Take 1 capsule by mouth two times a day as needed for constipation. Cholecalciferol, Vitamin D3, 125 mcg (5,000 unit) cap Take 1 capsule by mouth once daily. gabapentin (NEURONTIN) 400 mg capsule Take 1 capsule by mouth three times daily for 90 days. carvedilol (COREG) 6.25 mg tablet Take 6.25 mg by mouth two times a day with meals. lisinopril 2.5 mg tablet Take 2.5 mg by mouth once daily. DULoxetine (CYMBALTA) 30 mg capsule Take 1 capsule by mouth once daily. pantoprazole DR (PROTONIX) 40 mg tablet Take 1 tablet by mouth twice daily. tiotropium bromide (SPIRIVA RESPIMAT) 2.5 mcg/actuation inhaler Inhale 2 Puffs as instructed once daily. Inhale two puffs once daily. sucralfate (CARAFATE) 1 gram tablet Take 1 tablet by mouth before meals and at bedtime. benzonatate (TESSALON PERLES) 100 mg capsule Take 1 capsule by mouth three times daily as needed for cough. furosemide (LASIX) 20 mg tablet Take 20 mg by mouth twice daily. ondansetron orally disintegrating (ZOFRAN ODT) 4 mg disintegrating tablet Take 1 tablet by mouth every 6 hours as needed for nausea/vomiting. omeprazole (PRILOSEC) 40 mg capsule Take 40 mg by mouth two times a day. (Patient not taking: Reported on 04/11/2024) LORazepam (ATIVAN) 1 mg tablet Take 1 mg by mouth every 6 hours as needed for anxiety. (Patient nottaking: Reported on 04/11/2024) carbamide peroxide (DEBROX) 6.5 % otic solution Use 5 Drops in both ears twice daily. (Patient not taking: Reported on 03/14/2024) atorvastatin (LIPITOR) 40 mg tablet Take 40 mg by mouth daily at bedtime. (Patient not taking: Reported on 03/14/2024) Diaper,Brief, Adult,Disposable (DEPEND EASY FIT UNDERGARMENTS) misc Size Medium pull up. Change depends once every 1-2 hrs. Dx incontinence (788.30) Prolapsed bladder (618.01) No current facility-administered medications for this visit. ALLERGIES Allergen Reactions Contrast Dye [Iodin* Anaphylaxis ACTIVE PROBLEM LIST Retana's Esophagus - 08/21/2016 (A priority) Mixed Hyperlipidemia - 07/10/2014 (A priority) Anxiety (A priority) Comment: Per counseling center Depression (A priority) Gerd (Gastroesophageal Reflux Disease) (A priority) Essential Hypertension, Benign (A priority) [...] Dr. Nael Johnson - 12/30/2005 (M priority) Abdominal Aneurysm (Hcc) - 04/11/2024 Jovany (Acute Kidney Injury) (Hcc) - 12/23/2023 Abdominal Pain - 12/20/2023 Anaphylaxis Due to Contrast Media - 12/20/2023 S/P Cholecystectomy - 12/20/2023 Postoperative Abscess - 12/20/2023 Postoperative Bile Leak - 12/20/2023 Copd (Chronic Obstructive Pulmonary Disease) ([facility]) - 12/20/2023 Chronic Combined Systolic and Diastolic Chf (Congestive Heart Failure) ([facility]) - 12/20/2023 Coronary Artery Disease Due to Lipid Rich Plaque - 12/13/2023 Pulmonary Emphysema ([facility]) - 12/13/2023 Obesity, Class I, Bmi 30-34.9 - 12/11/2023 Choledocholithiasis - 12/07/2023 Chronic Back Pain - 12/07/2023 Compression Fracture of Thoracic Vertebra ([facility]) - 12/01/2023 Diabetes Mellitus ([facility]) - 01/13/2023 Cardiomyopathy in Disease Classified Elsewhere ([facility]) - 01/13/2023 Supraventricular Tachycardia ([facility]) - 01/13/2023 Oab (Overactive Bladder) - 02/18/2019 Elevated Plasma Metanephrines - 03/17/2018 Hyperthyroidism - 03/17/2018 High Catecholamines - 03/17/2018 Tremor - 06/24/2017 Memory Difficulties - 06/24/2017 Neoplasm of Uncertain Behavior of Back - 12/22/2016 Visual Disturbances - 08/21/2016 Social History Tobacco Use Smoking status: Former Packs/day: 1.00 Years: 40.00 Additional pack years: 0.00 Total pack years: 40.00 Types: Cigarettes Quit date: 09/21/2023 Years since quittin.5 Smokeless tobacco: Never Tobacco comments: 7 cigarette. Quit in Middle of September 2023. Substance Use Topics Alcohol use: No Drug use: No Review of Systems Respiratory: Negative. Cardiovascular: Negative. Gastrointestinal: Positive for abdominal pain and nausea. Negative for anal bleeding, blood in stool, constipation, diarrhea, rectal pain and vomiting. OBJECTIVE BP 118/86 Pulse 88 Wt 194 lb 14.2 oz (88.4kg) SpO2 93% Physical Exam Vitals and nursing note reviewed. Constitutional: General: She is awake. She is not in acute distress. Appearance: Normal appearance. She is well-developed and well-groomed. She is not ill-appearing, toxic-appearing or diaphoretic. HENT: Head: Normocephalic. Right Ear: External ear normal. Left Ear: External ear normal. Nose: Nose normal. Eyes: General: Vision grossly intact. Conjunctiva/sclera: Conjunctivae normal. Pupils: Pupils are equal, round, and reactive to light. Neck: Vascular: No JVD. Trachea: Trachea normal. Cardiovascular: Rate and Rhythm: Normal rate and regular rhythm. Pulses: Normal pulses. Heart sounds: Normal heart sounds. No murmur heard. Pulmonary: Effort: Pulmonary effort is normal. No accessory muscle usage, prolonged expiration or respiratory distress. Breath sounds: Normal breath sounds. Musculoskeletal: Cervical back: Neck supple. Skin: General: Skin is warm and dry. Capillary Refill: Capillary refill takes less than 2 seconds. Neurological: General: No focal deficit present. Mental Status: She is alert and oriented to person, place, and time. Mental status is at baseline. Psychiatric: Attention and Perception: Attention and perception normal. Mood and Affect: Mood and affect normal. Speech: Speech normal. Behavior: Behavior normal. Behavior is cooperative. Thought Content: Thought content normal. Cognition and Memory: Cognition and memory normal. Judgment: Judgment normal. ASSESSMENT/PLAN: 1. Hiatal hernia - ICD9: 553.3, ICD10: K44.9 (primary diagnosis) Continue current medications, discussed other management strategies, see GI and gen sx. - CONSULT TO GASTROENTEROLOGY - CONSULT TO GENERAL SURGERY 2. Generalized abdominal pain - ICD9: 789.07, ICD10: R10.84 See #1 - CONSULT TO GASTROENTEROLOGY - CONSULT TO GENERAL SURGERY 3. History of abdominal abscess - ICD9: V13.89, ICD10: Z87.898 - CONSULT TO GASTROENTEROLOGY - CONSULT TO GENERAL SURGERY 4. Type 2 diabetes mellitus with other specified complication, without long-term current use of insulin (HCC) - ICD9: 250.80, ICD10: E11.69 - Control undetermined, due for labs - Counseled on healthy diet and regular exercise 5. Essential hypertension, benign - ICD9: 401.1, ICD10: I10 - Controlled - Continue current medications - Recommend home blood pressure monitoring, to bring results to next visit - Encouraged sodium restriction, DASH or Mediterranean diet - Recommend regular aerobic exercise 6. Abdominal aneurysm (HCC) - ICD9: 441.4, ICD10: I71.40 Stable. 7. Chronic combined systolic and diastolic CHF (congestive heart failure) (HCC) - ICD9: 428.42, 428.0, ICD10: I50.42 Stable. 8. Chronic bronchitis, unspecified chronic bronchitis type (HCC) - ICD9: 491.9, ICD10: J42 Stable. Albuterol PRN, Spiriva daily. 9. Cardiomyopathy in disease classified elsewhere (HCC) - ICD9: 425.8, ICD10: I43 Stable. 10. Supraventricular tachycardia (HCC) - ICD9: 427.89, ICD10: I47.10 Stable. Portions of this note have been entered by ancillary staff. I have reviewed and when necessary edited, so that they are an adequate record of my encounter with this patient Please note that parts of this document were created using voice recognition software and therefore may contain grammatical errors. Patient verbalizes understanding of instructions from today's visit and in agreement with treatmentplan. Questions answered. Agrees to call the office if questions, concerns of issues with acute symptoms not improving or if they worsen. See diagnoses and orders for additional plan(s). Allergies and medications were reviewed, list was updated, and refills given if needed. Past medical, surgical, social, and family history reviewed and updated as appropriate. Encouraged proper diet & exercise as well as compliance with taking medications. Age- appropriate health preventative measures were discussed. Return in about 3 months (around 07/12/2024) for Follow up on chronic conditions and medications.. Nora Crespo APRN-DONNA documented in this encounterC[facility] Telephone encounter Note * Telephone Encounter - Marisa Mcdermott LPN - 03/21/2024 11:35 AM EDT PATIENT's daughter NOTIFIED OF SAME. [facility] Miscellaneous Notes* Telephone Encounter - Marisa Mcdermott LPN - 03/21/2024 11:35 AM EDT PATIENT's daughter NOTIFIED OF SAME. * Telephone Encounter - Nora Crespo APRN.CNP - 03/21/2024 10:34 AM EDT Please let patient know that CT scan results are back and show the following: IMPRESSION: No acute finding. Small RIGHT perihepatic density consistent with minimal residual complex collection status post abscess drainage. Non obstructing kidney stones. Large hiatal hernia. I suspect her large hiatal hernia is causing a lot of her symptoms. She is scheduled to see GI 04/07 so she certainly needs to be sure to keep that appointment. documented in this encounterC[facility]07-[facility]24 Telephone encounter Note * Telephone Encounter - Nora Crespo APRN.CNP - 03/21/2024 10:34 AM EDT Please let patient know that CT scan results are back and show the following: IMPRESSION: No acute finding. Small RIGHT perihepatic density consistent with minimal residual complex collection status post abscess drainage. Non obstructing kidney stones. Large hiatal hernia. I suspect her large hiatal hernia is causing a lot of her symptoms. She is scheduled to see GI 04/07 so she certainly needs to be sure to keep that appointment. [facility] History of Present illness Narrative* Sonia Mejias RT(R) - 03/18/2024 3:20 PM EDT Radiology Service Progress Note PATIENT NAME: Marcia Mascorro DATE OF SERVICE: March 18, 2024 TIME: 4:10 PM PATIENT IDENTITY VERIFICATION COMPLETED USING TWO (2) IDENTIFIERS: Name and Date of confirmedby patient verbally. FALL SCREENING: Has the patient had 2 falls in the last year or 1 fall with injury or currently using an Ambulatory Assistive Device (Walker, Cane, Wheelchair, Crutches, etc.)? No PATIENT GENDER DATA: Female. status: : No status: NO. PATIENT RELEVANT IMPLANT DATA REVIEWED: Not Applicable PATIENT PRESENTS WITH AN IMPLANTABLE OR ATTACHED ANCHORMAN: No RADIOLOGY DEPARTMENT: CT; Exam(s) Completed: Abdomen/Pelvis PERIPHERAL IV DATA: Not applicable SIGNED BY: RT Rhett(Alejandra) March 18, 2024 4:10 PM documented in this encounterC[facility]07-[facility]-2024 Telephone encounter Note * Telephone Encounter - Marisa Mcdermott LPN - 03/14/2024 4:19 PM EDT Kathie NOTIFIED OF SAME. Will schedule with Dr. Tejada for sometime after the CT scan. [facility] Miscellaneous Notes* Telephone Encounter - Marisa Mcdermott LPN - 03/14/2024 4:19 PM EDT Kathie NOTIFIED OF SAME. Will schedule with Dr. Tejada for sometime after the CT scan. * Telephone Encounter - Nora Crespo APRN.CNP - 03/14/2024 3:28 PM EDT She can continue the Omeprazole along with taking the Pepcid. She should still see Dr. Tejada in case her pain is a reoccuring abscess as she would need surgical services in that case. * Telephone Encounter - Danna Centeno LPN - 03/14/2024 2:35 PM EDT Kathie with [facility] calling for clarification. 1)Pt started on Pepcid. Does she need to stop Omeprazole? 2)Pt scheduled with [facility]. Does pt still need to see Dr. Tejada ? Please advise Kathie [phone]. Danna Centeno LPN documented in this encounterC[facility]07-[facility]-2024 Telephone encounter Note * Telephone Encounter - Nora Crespo APRN.CNP - 03/14/2024 3:28 PM EDT She can continue the Omeprazole along with taking the Pepcid. She should still see Dr. Tejada in case her pain is a reoccuring abscess as she would need surgical services in that case. [facility] Telephone encounter Note* Telephone Encounter - Danna Centeno LPN - 03/14/2024 2:35 PM EDT Kathie with [facility] calling for clarification. 1)Pt started on Pepcid. Does she need to stop Omeprazole? 2)Pt scheduled with [facility]. Does pt still need to see Dr. Tejada ? Please advise Kathie [phone]. Danna Centeno LPN [facility]07-08-[facility] Instructions* Patient Instructions* Nora Crespo APRN.CNP - 03/14/2024 12:47 PM EDT Get blood work today. Set up the CT scan of the abdomen. Schedule follow up with Dr. Tejada. Start the Pepcid. Increase melatonin to 10 mg nightly. documented in this encounterC[facility]07[facility] History of Present illness Narrative* Nora Crespo APRN.CNP - 03/14/2024 11:53 AM EDT SUBJECTIVE Marcia Mascorro is a 68 year old female here today for a check up on her medical problems. Chief Complaint Patient presents with: Abdominal Pain: Has seen Dr. Martinez in past. Is requesting a 2nd opinion. Gallbladder has been removed and not feeling any better since then HPI Marcia Mascorro is a 68 year old female. Staying at [facility]. She is an established patient of Gabriel Galvan MD. Here today for concerns of continued abdominal issues. She had her gallbladder removed early December and had issues with an abdominal abscess shortly after. Also has a known history of Retana's esophagus. Has concerns of continued abdominal pain. Nausea but no vomiting. Watery diarrhea last week, none since. Abdominal pain with eating. Pain is right upper quadrant, goes across the stomach. Tender to touch. Getting worse. On Omeprazole, and Carafate. Sees Dr. Martinez for GI. Xray done at [facility] showed pneumonia. Treated by [facility] provider for pneumonia. Her medications were reviewed today and her list is now up to date. Medications Current Outpatient Medications Medication Sig acetaminophen (TYLENOL) 650 mg suppository 650 mg by RECTAL route every 4 hours as needed. acetaminophen (TYLENOL) 325 mg tablet Take 650 mg by mouth every 4 hours as needed. potassium chloride ER (KLOR-CON) 20 mEq tablet Take 20 mEq by mouth once daily. omeprazole (PRILOSEC) 40 mg capsule Take 40 mg by mouth two times a day. HYDROcodone-Acetaminophen (NORCO) 7.5-325 mg per tablet Take 1 tablet by mouth every 6 hours as needed for pain. sodium phosphate-sodium bisphosphate (FLEET) enema 1 Enema by RECTAL route as needed. dicyclomine (BENTYL) 10 mg capsule Take 20 mg by mouth two times a day. cefdinir (OMNICEF) 300 mg capsule Take 300 mg by mouth two times a day. aluminum-magnesium hydroxide-simethicone (MAALOX,MYLANTA,MAG-AL PLUS) 200-200-20 mg/5 mL suspensionTake 30 mL by mouth as needed. bisacodyl (DULCOLAX) 10 mg supp 10 mg by RECTAL route once daily as needed for constipation. magnesium hydroxide (MILK OF MAGNESIA) 400 mg/5 mL suspension Take 30 mL by mouth once daily as needed for constipation. oxycodone myristate (XTAMPZA ER ORAL) Take 18 mg by mouth two times a day. For pain LORazepam (ATIVAN) 1 mg tablet Take 1 mg by mouth every 6 hours as needed for anxiety. clopidogrel (PLAVIX) 75 mg tablet Take 1 tablet by mouth once daily. Patient should start on December 17, 2023. albuterol-budesonide HFA (AIRSUPRA) 90-80 mcg/actuation inhaler Take 2 Puffs by mouth every 2 hoursas needed for wheezing/shortness of breath. Do not take more than 12 inhalations in a 24 hour period. docusate sodium (COLACE) 100 mg capsule Take 1 capsule by mouth two times a day as needed for constipation. Cholecalciferol, Vitamin D3, 125 mcg (5,000 unit) cap Take 1 capsule by mouth once daily. gabapentin (NEURONTIN) 400 mg capsule Take 1 capsule by mouth three times daily for 90 days. nicotine (NICODERM) 14 mg/24 hr Apply 1 Patch as directed every 24 hours. x 2 weeks, then decrease to 7 mg patch carvedilol (COREG) 6.25 mg tablet Take 6.25 mg by mouth two times a day with meals. lisinopril 2.5 mg tablet Take 2.5 mg by mouth once daily. DULoxetine (CYMBALTA) 30 mg capsule Take 1 capsule by mouth once daily. tiotropium bromide (SPIRIVA RESPIMAT) 2.5 mcg/actuation inhaler Inhale 2 Puffs as instructed once daily. Inhale two puffs once daily. sucralfate (CARAFATE) 1 gram tablet Take 1 tablet by mouth before meals and at bedtime. benzonatate (TESSALON PERLES) 100 mg capsule Take 1 capsule by mouth three times daily as needed for cough. furosemide (LASIX) 20 mg tablet Take 20 mg by mouth twice daily. ondansetron orally disintegrating (ZOFRAN ODT) 4 mg disintegrating tablet Take 1 tablet by mouth every 6 hours as needed for nausea/vomiting. melatonin 10 mg tab Take 1 tablet by mouth at bedtime as needed for insomnia. famotidine (PEPCID) 40 mg tablet Take 1 tablet by mouth once daily. carbamide peroxide (DEBROX) 6.5 % otic solution Use 5 Drops in both ears twice daily. (Patient not taking: Reported on 03/14/2024) nicotine (NICODERM) 21 mg/24 hr Apply 1 Patch as directed every 24 hours. x 6 weeks, then decrease to the 14 mg patch (Patient not taking: Reported on 03/14/2024) nicotine (NICODERM) 7 mg/24 hr Apply 1 Patch as directed every 24 hours. (Patient not taking: Reported on 03/14/2024) pantoprazole DR (PROTONIX) 40 mg tablet Take 1 tablet by mouth twice daily. (Patient not taking: Reported on 03/14/2024) nystatin (MYCOSTATIN) 100,000 unit/mL suspension Take 5 mL by mouth four times daily. 1tsp swish inmouth for several minutes, then swallow (or expectorate) 4 times daily until gone. (Patient not taking: Reported on 03/14/2024) umeclidinium-vilanterol (ANORO ELLIPTA) 62.5-25 mcg/actuation inhaler Inhale 1 Inhalation as instructed once daily. (Patient not taking: Reported on 03/14/2024) atorvastatin (LIPITOR) 40 mg tablet Take 40 mg by mouth daily at bedtime. (Patient not taking: Reported on 03/14/2024) Diaper,Brief, Adult,Disposable (DEPEND EASY FIT UNDERGARMENTS) misc Size Medium pull up. Change depends once every 1-2 hrs. Dx incontinence (788.30) Prolapsed bladder (618.01) No current facility-administered medications for this visit. ALLERGIES Allergen Reactions Contrast Dye [Iodin* Anaphylaxis ACTIVE PROBLEM LIST Retana's Esophagus - 08/21/2016 (A priority) Mixed Hyperlipidemia - 07/10/2014 (A priority) Anxiety (A priority) Comment: Per counseling center Depression (A priority) Gerd (Gastroesophageal Reflux Disease) (A priority) Essential Hypertension, Benign (A priority) [...] Dr. Nael Johnson - 12/30/2005 (M priority) Jovany (Acute Kidney Injury) ([facility]) - 12/23/2023 Abdominal Pain - 12/20/2023 Anaphylaxis Due to Contrast Media - 12/20/2023 S/P Cholecystectomy - 12/20/2023 Postoperative Abscess - 12/20/2023 Postoperative Bile Leak - 12/20/2023 Copd (Chronic Obstructive Pulmonary Disease) ([facility]) - 12/20/2023 Chronic Combined Systolic and Diastolic Chf (Congestive Heart Failure) ([facility]) - 12/20/2023 Coronary Artery Disease Due to Lipid Rich Plaque - 12/13/2023 Pulmonary Emphysema ([facility]) - 12/13/2023 Obesity, Class I, Bmi 30-34.9 - 12/11/2023 Choledocholithiasis - 12/07/2023 Chronic Back Pain - 12/07/2023 Compression Fracture of Thoracic Vertebra ([facility]) - 12/01/2023 Diabetes Mellitus ([facility]) - 01/13/2023 Cardiomyopathy in Disease Classified Elsewhere ([facility]) - 01/13/2023 Supraventricular Tachycardia ([facility]) - 01/13/2023 Oab (Overactive Bladder) - 02/18/2019 Elevated Plasma Metanephrines - 03/17/2018 Hyperthyroidism - 03/17/2018 High Catecholamines - 03/17/2018 Tremor - 06/24/2017 Memory Difficulties - 06/24/2017 Neoplasm of Uncertain Behavior of Back - 12/22/2016 Visual Disturbances - 08/21/2016 Social History Tobacco Use Smoking status: Former Packs/day: 1.00 Years: 40.00 Additional pack years: 0.00 Total pack years: 40.00 Types: Cigarettes Quit date: 09/21/2023 Years since quittin.4 Smokeless tobacco: Never Tobacco comments: 7 cigarette. Quit in Middle of September 2023. Substance Use Topics Alcohol use: No Drug use: No Review of Systems Respiratory: Positive for cough. Gastrointestinal: Positive for abdominal pain and nausea. Negative for blood in stool, rectal pain and vomiting. OBJECTIVE BP 114/74 Pulse 112 Wt 196 lb (88.9kg) SpO2 90% Physical Exam Vitals and nursing note reviewed. Constitutional: General: She is awake. She is not in acute distress. Appearance: Normal appearance. She is well-developed and well-groomed. She is not ill-appearing, toxic-appearing or diaphoretic. HENT: Head: Normocephalic. Right Ear: External ear normal. Left Ear: External ear normal. Nose: Nose normal. Eyes: General: Vision grossly intact. Conjunctiva/sclera: Conjunctivae normal. Pupils: Pupils are equal, round, and reactive to light. Neck: Vascular: No JVD. Trachea: Trachea normal. Cardiovascular: Rate and Rhythm: Normal rate and regular rhythm. Pulses: Normal pulses. Heart sounds: Normal heart sounds. No murmur heard. Pulmonary: Effort: Pulmonary effort is normal. No accessory muscle usage, prolonged expiration or respiratory distress. Breath sounds: Normal breath sounds. Abdominal: General: Bowel sounds are normal. Tenderness: There is abdominal tenderness in the right upper quadrant. Musculoskeletal: Cervical back: Neck supple. Skin: General: Skin is warm and dry. Capillary Refill: Capillary refill takes less than 2 seconds. Neurological: General: No focal deficit present. Mental Status: She is alert and oriented to person, place, and time. Mental status is at baseline. Psychiatric: Attention and Perception: Attention and perception normal. Mood and Affect: Mood and affect normal. Speech: Speech normal. Behavior: Behavior normal. Behavior is cooperative. Thought Content: Thought content normal. Cognition and Memory: Cognition and memory normal. Judgment: Judgment normal. ASSESSMENT/PLAN: 1. Generalized abdominal pain - ICD9: 789.07, ICD10: R10.84 (primary diagnosis) Check labs today, get CT done, add H2 cora. Keep GI follow up and return to see general surgery. - COMPLETE BLOOD COUNT AND DIFFERENTIAL - COMPREHENSIVE METABOLIC PANEL - AMYLASE - LIPASE - CT ABD/PEL WO IVCON - FAMOTIDINE 40 MG TABLET 2. History of abdominal abscess - ICD9: V13.89, ICD10: Z87.898 See #1 3. Retana's esophagus with dysplasia - ICD9: 530.85, ICD10: K22.719 See #1 4. Pneumonia due to infectious organism, unspecified laterality, unspecified part of lung - ICD9: 486, ICD10: J18.9 Treatment per SNF 5. Encounter for therapeutic drug monitoring - ICD9: V58.83, ICD10: Z51.81 - COMPLETE BLOOD COUNT AND DIFFERENTIAL - COMPREHENSIVE METABOLIC PANEL Portions of this note have been entered by ancillary staff. I have reviewed and when necessary edited, so that they are an adequate record of my encounter with this patient Please note that parts of this document were created using voice recognition software and therefore may contain grammatical errors. Patient verbalizes understanding of instructions from today's visit and in agreement with treatmentplan. Questions answered. Agrees to call the office if questions, concerns of issues with acute symptoms not improving or if they worsen. See diagnoses and orders for additional plan(s). Allergies and medications were reviewed, list was updated, and refills given if needed. Past medical, surgical, social, and family history reviewed and updated as appropriate. Encouraged proper diet & exercise as well as compliance with taking medications. Age- appropriate health preventative measures were discussed. Return in about 4 weeks (around 04/11/2024) for Follow up on chronic conditions and medications.. Nroa Crespo APRN-DONNA documented [facility] Telephone encounter Note * Telephone Encounter - Isaak Yuan - 01/18/2024 11:24 AM EDT Per [facility], Ct was order with Oral and IV contrast and patient is allergic to contrast. They stated she can be done in [place] with OUT contrast, or if you need contrast, we con do this as long as she has the 13 hr Benadryl/Steroid prep at a hospital setting like [facility]. Ple ase advise. [facility] Miscellaneous Notes* Telephone Encounter - Isaak Yuan - 01/18/2024 11:24 AM EDT Per [facility], Ct was order with Oral and IV contrast and patient is allergic to contrast. They stated she can be done in [place] with OUT contrast, or if you need contrast, we con do this as long as she has the 13 hr Benadryl/Steroid prep at a hospital setting like [facility]. Ple ase advise. documented in this encounterC[facility]04-30-[facility]24 History of Present illness Narrative* Darrell Tejada MD - 01/05/2024 2:04 PM EDT Subjective: Patient is status post a laparoscopic cholecystectomy and subsequently developed an abdominal abscess in the right upper quadrant. She had a drain placed this grew out rare Enterobacter and rare Serratia. The drain is subsequently fallen out. She has been complaining of increasing rightupper quadrant radiating into her back pain. No reported fevers. Objective:There were no vitals taken for this visit. Abdomen is soft no rebound guarding or peritoneal signs palpate deeply she does complain of right upper quadrant abdominal pain she has multiple small lipomas of her back. Assessment:Ruq pain (primary encounter diagnosis) Liver abscess Infection in abdomen (hcc) Plan: I am going to obtain a repeat CAT scan of the abdomen and pelvis. She possibly has a recurrent abscess forming. documented in this encounterC[facility]04-[facility]-[address]24 [facility] 12-26-2023 NoteHNO ID: [id number] Author: JEF HOANG RN Service: ? Author Type: Registered Nurse Type: Nursing Progress Note Filed: 12/26/2023 21:39 Note Text: 2106: Page sent to hospitalist notifying pt requesting maalox for upset stomach. See new [facility]04-20-[address]24 [facility]04-19-2024 [facility]04-18-2024 [facility]04-17-2024 [facility] 12-23-2023 [place] [address]-17-2024 [facility]04-17-2024 History of Present illness Narrative* Keegan Israel MD - 12/23/2023 11:52 AM EDT Images from the original note were not included. [facility] Outpatient Parenteral Antimicrobial Therapy (OPAT) Start Form Patient Info Patient MRN Patient Name Address Date of [id number] Marcia Mascorro [address] [facility] [place] [place] [id number] 1955 Start Date 12/23/2023 Physician Group [facility] Diagnosis Group Diagnosis GI/Hepatobiliary/Peritoneal: Other Micro-organism OTHER IV Antibiotics Piperacillin-Tazobactam 3.375 grams IV every 6 hours STOP DATE: 12/29/2023 Lab Monitoring Plan/Orders CBC/diff every Thursday/Thursday while on Piperacillin-tazobactam BMP every Thursday/Thursday while on Piperacillin-tazobactam Liver Function Tests every Thursday/Thursday while on Piperacillin-tazobactam Pharmacy Consult Yes Cath Care Protocol Flush IV line with 10 mL of normal saline (0.9%) before and after each dose of medication or at a minimum once daily. Flush IV line with 10-20 mL of normal saline (0.9%) after lab draw. Acute respiratory failure with hypoxia Abdominal pain Postoperative abscess in GB fossa Postoperative bile leak? Order HIDA to look for biliary leak. If no leak detected, consider IR guided drainage for the possible abdominal abscess if a predominant collection is detected and feasible to drainage Essential hypertension, benign Anxiety Depression GERD (gastroesophageal reflux disease) Smoker Chronic back pain Obesity, Class I, BMI 30-34.9 Coronary artery disease due to lipid rich plaque Pulmonary emphysema Anaphylaxis due to contrast media S/P cholecystectomy COPD (chronic obstructive pulmonary disease) Chronic combined systolic and diastolic CHF (congestive heart failure) Provider Monitoring Treatment Course Keegan Israel MD Follow up Provider Follow up date/time Appointment type Keegan Israel MD In-person Address [address] [place] [address] documented in this encounterC[facility]04-[facility]24 Miscellaneous Notes* Telephone Encounter - Rula Hernandez RN - 12/23/2023 10:08 AM EDT FIONA: Naty with [facility] calls to let provider know that patient was seen at [facility] on 12/19/2023 for abdominal pain and transferred on 12/20/20[facility] to [facility]. [facility] currently admitted to [facility] for Abdominal Abscess. Notes available in [facility]. Closing encounter. Rula Hernandez RN documented in this encounterC[facility]04-16-[address]24 [facility] 12-21-2023 [facility]04-13-2024 Hospital Discharge instructions Follow Up Care 12/19/2023 21:17:01 With:Follow up with primary care provider Address:Unknown When:2-4 days [facility] 04-13-2024 Note ORIGINAL EXAMINATION: CT OF THE ABDOMEN AND PELVIS WITH CONTRAST 12/19/2023 10:40 pm TECHNIQUE: CT of the abdomen and pelvis was performed with the administration of intravenous contrast. Multiplanar reformatted images are provided for review. Automated exposure control, iterative reconstruction, and/or weight based adjustment of the mA/kV was utilized to reduce the radiation dose to as low as reasonably achievable. COMPARISON: CT abdomen pelvis without contrast 11/10/2015. HISTORY: ORDERING SYSTEM PROVIDED HISTORY: Reason for Exam: Abd Pain FINDINGS: Interstitial changes and atelectasis at the bilateral lung bases. Liver is within normal limits for size and demonstrates a smooth contour. At the gallbladder fossa, inflammatory changes are appreciated with perihepatic fluid collections as well as locule of air. These collections measure up to 2.3 cm in thickness and extending inferiorly to the tip of the right hepatic lobe. The spleen, pancreas and adrenal glands are unremarkable. The kidneys are within normal limits for size and demonstrate symmetric parenchymal enhancement. Nonobstructing renal calculi measuring up to 4 mm are appreciated in the left. No hydroureteronephrosis is identified bilaterally. The urinary bladder is largely decompressed, limiting evaluation for wall thickening. A large hiatal hernia is incompletely visualized. Bowel gas is noted to the level of the sigmoid colon in a nonobstructed pattern. The appendix appears surgically absent. Diverticular appreciated within the descending and sigmoid colon without evidence of diverticulitis. Multiple prominent lymph nodes are appreciated about the kady hepatis. Fusiform infrarenal abdominal aortic aneurysm measuring up to 3.5 cm. Scattered mural thrombus and extensive atherosclerotic changes. A small amount inflammatory change and fluid is appreciated adjacent to the umbilicus, which may relate to recent surgery. Osseous structures demonstrate degenerative changes without acute abnormality. IMPRESSION: 1. Multiple locules of air and fluid collections at the gallbladder fossa and along the medial right hepatic capsule extending inferiorly to the level of Morison's pouch. Findings are concerning for post cholecystectomy changes with bile leak versus abscess. 2. Infrarenal abdominal aortic aneurysm measuring up to 3.5 cm. Recommend imaging follow-up in 2 years. 3. Nonobstructing left nephrolithiasis. Interpreted by: Yoandy Duenas Preliminary Report By: Yoandy Duenas Electronically signed By Yoandy Duenas Dictated Date: 12/19/2023 10:45:59 PM Prelim Date: 12/19/2023 11:05:33 PM Sign Date: 12/19/2023 11:05:33 PM [facility]ing [facility] Sinus rhythm Consider anterolateral infarct Electronic Signature: MERLINE CHRISTENSEN DO 12/19/2023 21:40:53[facility] 04-06-2024 [facility]04-05-2024 [facility]04-04-2024 [facility]04-03-2024 Miscellaneous Notes* Telephone Encounter - Gabriel Galvan MD - 12/09/2023 8:51 PM EDT Noted * Telephone Encounter - Elsy Sanz RN - 12/09/2023 1:55 PM EDT Ned Callejas biodiesel engineering manager calling as a courtesy to update PCP that patient has been admitted to [facility] since 11/30/23 with DX of HTN. Pt to have scheduled gallbladder surgery. States pt also has prior T 7 fracture that occurred after a fall at nursing facility 3-4 weeks ago. No call back needed. Thank you. documented in this encounterC[facility]04-03-2024 NoteHNO ID: [id number] Author: CARLA SILVA, WENDY Service: ? Author Type: Registered Nurse Type: Nursing Progress Note Filed: 12/09/2023 15:34 Note Text: Dr willams aware sbp is 177 after 2 doses of apresoline and 3 doses of fentanyl. Ok to go to [facility]04-03-[address]24 [facility]04-03-2024 Note [id number] [facility]04-01-2024 [facility] 12-07-[id number] [facility]03-31-2024 Note [facility] [id number] History of Past illness Narrative* Problem Noted Date Diagnosed Date Resolved Date Intractable pain 12/05/2023 12/07/2023 LV (left ventricular) mural thrombus 12/01/2023 12/07/2023 Abdominal pain 12/01/2023 12/07/2023 Acute respiratory failure with hypoxia 12/01/2023 12/07/2023 Opioid dependence 01/15/2020 09/23/2022 Overview: In 180 as of 01/2020 per ER report from [facility]. Encounter for screening mamm ogram for breast cancer 05/12/2018 09/23/2022 Current use of proton pump inhibitor 04/27/2018 09/23/2022 Medicare annual wellness visit, subsequent 06/24/2017 09/23/2022 Overview: last done: 06/24/2017 RUQ pain 08/21/2016 12/07/2023 Near syncope 08/21/2016 09/23/2022 Epigastric pain 04/16/2016 04/16/2016 Colon cancer screening 04/16/201604/16 Routine gynecological examination 06/05/2014 09/23/2022 Well adult exam 06/05/2014 09/23/2022 Overview: last done 06/24/2017 COPD with exacerbation 12/06 documented as of this encounter (statuses as of 12/10/2023) [facility] History of Past illness Narrative* Problem Noted Date Diagnosed Date Resolved Date Intractable pain 12/05/2023 12/07/2023 LV (left ventricular) mural thrombus 12/01/2023 12/07/2023 Abdominal pain 12/01/2023 12/07/2023 Opioid dependence 01/15/2020 09/23/2022 Overview: In 180 as of 01/2020 per ER report from [facility]. Encounter for screening mamm ogram for breast cancer 05/12/2018 09/23/2022 Current use of proton pump inhibitor 04/27/2018 09/23/2022 Medicare annual wellness visit, subsequent 06/24/2017 09/23/2022 Overview: last done: 06/24/2017 RUQ pain 08/21/2016 12/07/2023 Near syncope 08/21/2016 09/23/2022 Epigastric pain 04/16/2016 04/16/2016 Colon cancer screening 04/16/201604/16 Routine gynecological examination 06/05/2014 09/23/2022 Well adult exam 06/05/2014 09/23/2022 Overview: last done 06/24/2017 COPD with exacerbation 12/06 documented as of this encounter (statuses as of 12/23/2023) [facility] History of Past illness Narrative* Problem Noted Date Diagnosed Date Resolved Date Intractable pain 12/05/2023 12/07/2023 LV (left ventricular) mural thrombus 12/01/2023 12/07/2023 Abdominal pain 12/01/2023 12/07/2023 Opioid dependence 01/15/2020 09/23/2022 Overview: In 180 as of 01/2020 per ER report from [facility]. Encounter for screening mamm ogram for breast cancer 05/12/2018 09/23/2022 Current use of proton pump inhibitor 04/27/2018 09/23/2022 Medicare annual wellness visit, subsequent 06/24/2017 09/23/2022 Overview: last done: 06/24/2017 RUQ pain 08/21/2016 12/07/2023 Near syncope 08/21/2016 09/23/2022 Epigastric pain 04/16/2016 04/16/2016 Colon cancer screening 04/16/201604/16 Routine gynecological examination 06/05/2014 09/23/2022 Well adult exam 06/05/2014 09/23/2022 Overview: last done 06/24/2017 COPD with exacerbation 12/06 documented as of this encounter (statuses as of 12/24/2023) [facility]03-30-2024 NoteUc [id number] [facility] 12-03-2023 NoteUc [id number] NoteUc [id number] Note [facility] [id number] NoteUc [id number] History of Present illness Narrative* Pascale Fonseca RT(R) - 11/30/2023 11:09 PM EDT Radiology Service Progress Note PATIENT NAME: Marcia Mascorro DATE OF SERVICE: November 30, 2023 TIME: 11:09 PM PATIENT IDENTITY VERIFICATION COMPLETED USING TWO (2) IDENTIFIERS: Name and Date of confirmedby patient verbally. FALL SCREENING: Has the patient had 2 falls in the last year or 1 fall with injury or currently using an Ambulatory Assistive Device (Walker, Cane, Wheelchair, Crutches, etc.)? No PATIENT GENDER DATA: Female. status: : No status: NO. PATIENT RELEVANT IMPLANT DATA REVIEWED: Not Applicable PATIENT PRESENTS WITH AN IMPLANTABLE OR ATTACHED ANCHORMAN: No RADIOLOGY DEPARTMENT: General X-ray: Exam(s) Completed: Chest X-Ray PERIPHERAL IV DATA: Not applicable SIGNED BY: RT Jt(R) November 30, 2023 11:09 PM documented in this encounterC[facility]03-20-2024 History of Present illness Narrative* Garbiel Galvan MD - 11/25/2023 5:50 PM EDT This note was created using NoteWriter. Subjective Marcia Mascorro is a 67 year old female. HISTORY Marcia Mascorro is a 67 year old lady here to be formally established with me. Foam when she pees Falls noted. Noted that breathing not adequately controlled Constipation noted. NO stool softeners ordered. - Patient has been experiencing pain in the hips and ankles, leading to difficulty walking and maintaining balance - Patient has fallen a few times due to instability - Patient has a persistent cough that is not relieved by current medications - Patient has been informed about potential cancer diagnosis but details are unclear - Constipation has been an issue PAST MEDICAL HISTORY Diagnosis Date Anxiety Chronic pain low back, sees pain MGT: Dr. Nayak COPD (chronic obstructive pulmonary disease) (HCC) Depression Essential hypertension, benign Sees Dr. Best GERD (gastroesophageal reflux disease) Incontinence 07/07/2014 Opioid dependence (HCC) 01/15/2020 In 180 as of 01/2020 per ER report from [facility]. Current Outpatient Medications Medication Sig Cholecalciferol, Vitamin D3, 125 mcg (5,000 unit) cap Take 1 capsule by mouth once daily. carbamide peroxide (DEBROX) 6.5 % otic solution Use 5 Drops in both ears twice daily. gabapentin (NEURONTIN) 400 mg capsule Take 1 capsule by mouth three times daily for 90 days. nicotine (NICODERM) 21 mg/24 hr Apply 1 [...] by mouth before meals and at bedtime. benzonatate (TESSALON PERLES) 100 mg capsule Take 1 capsule by mouth three times daily as needed for cough. famotidine (PEPCID) 40 mg tablet Take 1 tablet by mouth once daily. nystatin (MYCOSTATIN) 100,000 unit/mL suspension Take 5 mL by mouth four times daily. 1tsp swish inmouth for several minutes, then swallow (or expectorate) 4 times daily until gone. umeclidinium-vilanterol (ANORO ELLIPTA) 62.5-25 mcg/actuation inhaler Inhale 1 Inhalation as instructed once daily. albuterol HFA (PROVENTIL HFA, VENTOLIN HFA) 90 mcg/actuation inhaler Inhale 2-4 Puffs as instructedevery 2 hours as needed for wheezing/shortness of [...] 6 hours as needed. Per counseling center No current facility-administered medications for this visit. ALLERGIES No Known Allergies PAST SURGICAL HISTORY Procedure Laterality Date 2D ECHO (EXEP) 01/19/2017 EF=55%, mild LVH, LA enlargement, TX and TI, Diastolic dysfunction. 2D ECHO (EXEP) 12/18/2017 EF=55%, mild LVH, mild diastolic dysfunct, COLONOSCOPY FLX DX W/COLLJ SPEC WHEN PFRMD 04/16/2016 Colonoscopy mac. repeat 10 yrs ESOPHAGOGASTRODUODENOSCOPY TRANSORAL DIAGNOSTIC 04/16/16 EGD mac TOTAL ABDOMINAL HYSTERECT W/WO RMVL TUBE OVARY Hysterectomy, YANICK FAMILY HISTORY Problem Relation Age of Onset Breast Cancer Sister Heart Mother Diabetes Mother Stroke Mother Hypertension Mother Heart Maternal Grandmother Heart Brother Social History Tobacco Use Smoking status: Some Days Packs/day: 1.00 Years: 40.00 Additional pack years: 0.00 Total pack years: 40.00 Types: Cigarettes Smokeless tobacco: Never Tobacco comments: 7 cigarette Substance Use Topics Alcohol use: No Drug use: No Review of Systems Objective BP 124/86 (BP Site: Left Arm, BP Position: Sitting, BP Cuff Size: Large Adult) Pulse 78 Resp 16 Wt 96.6 kg (213 lb) BMI 36.56 kg/m Physical Exam Constitutional: Appearance: Normal appearance. HENT: Head: Normocephalic. Eyes: Conjunctiva/sclera: Conjunctivae normal. Cardiovascular: Rate and Rhythm: Normal rate and regular rhythm. Heart sounds: Normal heart sounds. Pulmonary: Effort: Pulmonary effort is normal. Breath sounds: Normal breath sounds. Musculoskeletal: Right lower leg: No edema. Left lower leg: No edema. Skin: General: Skin is warm and dry. Neurological: General: No focal deficit present. Mental Status: She is alert and oriented to person, place, and time. Psychiatric: Mood and Affect: Mood normal. Behavior: Behavior normal. Thought Content: Thought content normal. Judgment: Judgment normal. Assessment and Plan Encounter Diagnosis ICD-10-CM 1. Gait instability R26.81 CONSULT TO PODIATRY CANE, QUAD OR THREE PRONG CANCELED: CANE, QUAD OR THREE PRONG 2. Ankle weakness R29.898 CONSULT TO PODIATRY CANE, QUAD OR THREE PRONG 3. Peripheral neuropathic pain M79.2 CONSULT TO PODIATRY CANE, QUAD OR THREE PRONG Both feet and ankles 4. Retana's esophagus with dysplasia K22.719 5. Lower abdominal pain R10.30 docusate sodium (COLACE) 100 mg capsule Above issues addressed with patient. Patient involved in shared decision making for management of medical issues. History and medications reviewed. Epic updated as needed Refills and/or prescriptions taken care of and meds adjusted as indicated after reviewed history, exam and labs. Health Maintenance reviewed. Updated record and/or ordered tests as recorded. Encouraged on efforts at healthy diet and regular exercise and adequate sleep. - Patient's breathing is not adequately controlled with current medications - Patient has peripheral neuropathy affecting the feet and ankles - Patient has nodules identified on CT scan, follow-up needed - Constipation issue - Consult with home health lvn for ankle weakness and peripheral neuropathic pain - Follow-up CT scan for nodules - Consider use of a cane for mobility - Try new medication (AirSoup) for breathing control - Prescription for Colace for constipation - Follow-up with cardiology - AirSupra for breathing control - Prescription for a cane for mobility - Colace for constipation, 100mg, one by mouth twice daily as needed - Follow-up appointment with Dr. Martinez in two months - Consultation with Dr. Hanna (home health lvn) scheduled - Follow-up CT scan ordered by Dr. Fraire - Follow-up in three months, alternating between myself and Dr. Fraire I spent a total of 41 minutes on the date of the service which included [id number] patient care, completing clinical documentation, obtaining and/or reviewing separately obtained history, performing a medically appropriate examination, counseling and educating the patient/family/caregiver, and ordering medications, tests, or procedures. Gabriel Galvan MD documented in this encounterC[facility]03-14-2024 History of Present illness Narrative* Penny Francois - 11/19/2023 12:43 PM EDT POPULATION HEALTH NAVIGATION OUTREACH Action/FYI Pt due for follow up Called and spoke with pt Scheduled follow up 11/25/23 Reason for Outreach Care Gap/HCC or Scheduling Wellness Visits Care Gaps due: Follow-up Appointment Patient Contacted: Spoke to patient/parent/or legal guardian Patient identified by name and : Yes Care Gap/HCC/Scheduling Wellness actions taken: Patient scheduled/pended labs: [facility] - Follow Up, please review HCCs 12/14/2023 in [facility] with CRISS BRIONES - hypertension, heart disease 01/12/2024 in [facility] with DRAKE YORK - stomach issues, bioduct stint HCC related Navigation Signature: Penny Francois November 19, 2023 12:43 PM documented in this encounterC[facility]01-23-2024 Discharge summary Author Waqas Hart [facility] September 29, 2023 9:19pm Note Date/Time September 29, 2023 6 :07pm [facility] Medical Records Department [address] [place] [address] Emergency Department Summary 09/29/23 MR#: [id number] Acct: [id number] Name: MARCIA MASCORRO Rep #:[id number] : 1955 67 From: Waqas Hart MD PCP: Dr. Danny Green MD Status:REG E R Location: ED HPI History of Present Illness Chief Complaint: Chest Pain Narrative Narrative: 67-year-old female past medical history of GERD, COPD, hypertension, states she had an EGD performed yesterday by Dr. Martinez where he found cancer cells. He allegedly cauterized and biopsied the area, and told her that he needed to do jovan few more times. Since then, she has been having chest pain and epigastric pain but no nausea or vomiting. States this morning she had chest pain and leftarm pain, which subsided after she received nitroglycerin. She presents to the emergency department via EMS with continued chest pain and pressure. [facility] Medical History Anxiety and depression Arthritis Atherosclerotic heart disease of [place] coronary artery without angina pectoris Back pain Bullous emphysema Calculus of left kidney Cardiology follow-up encounter Chest pain Chronic cough COPD (chronic obstructive pulmonary disease) COPD with asthma Depression Difficulty chewing DVT (deep venous thrombosis) Easy bruising Elevated troponin Esophagitis, unspecified without bleeding Essential hypertension Excessive bleeding Gastric reflux GERD (gastroesophageal reflux disease) High cholesterol History of CHF (congestive heart failure) History of echocardiogram History of edema History of irregular heartbeat History of non-ST elevation myocardial infarction (NSTEMI) (09/01/21) History of pain when walking History of renal disease History of stress test History of ulceration Hoarseness Hyperlipidemia Injury of back Ischemic cardiomyopathy Kidney stones Leg cramps Myocardial infarct Obesity (BMI 30.0-34.9) Old anterior wall myocardial infarction Opiate dependence EVELYN (obstructive sleep apnea) Osteoporosis Other chronic pain Personal history of transient ischemic attack (TIA), and cerebral infarction without residual deficits Post-menopausal Shortness of breath on exertion Smoker Sustained SVT TIA (transient ischemic attack) Tobacco abuse Unspecified combined 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 Wears glasses Home Medications atorvastatin 40 mg tablet (Lipitor) 40 mg PO QHS 30 days #30 tabs 01/04/23 [Rx Last Taken Unknown] clopidogrel 75 mg tablet (Plavix) 75 mg PO DAILY 30 days #30 tabs 01/04/23 [Rx Last Taken 09/25/23] lisinopril 2.5 mg tablet 2.5 mg PO DAILY 30 days #30 tabs 01/04/23 [Rx Last Taken 06/24/23] ondansetron 4 mg disintegrating tablet 4 mg PO Q8H PRN PRN Nausea #12 tabs 01/13/23 [Rx Last Taken Unknown] albuterol sulfate 90 mcg/actuation aerosol inhaler 2 puff inhalation Q6H PRN shortness of breath or wheezing #8.5 grams 02/17/23 [Rx Last Taken Unknown] budesonide-formoterol HFA 160 mcg-4.5 mcg/actuation aerosol inhaler (Symbicort) 1 puff inhalation BID #10.2 grams 02/17/23 [Rx Last Taken Unknown] inhalational spacing device (Aerochamber MV spacer) #1 ea 02/17/23 [Rx Last Taken Unknown] tiotropium bromide 2.5 mcg/actuation mist for inhalation (Spiriva Respimat) 2 puff inhalation DAILY #4 grams 02/17/23 [Rx Last Taken Unknown] pantoprazole 40 mg tablet,delayed release 40 mg PO Q12H #60 tabs 06/24/23 [Rx Last Taken 09/28/23] lorazepam 1 mg tablet (Ativan) 1 mg PO BID PRN anxiety 07/16/23 [History Last Taken 09/28/23] amiodarone 200 mg tablet 200 mg PO DAILY 07/22/23 [History Last Taken Unknown] carvedilol 6.25 mg tablet 6.25 mg PO Q12H 07/29/23 [History Last Taken 09/28/23] furosemide 20 mg tablet 20 mg PO Q12H 07/29/23 [History Last Taken Unknown] gabapentin 400 mg capsule 400 mg PO Q8H 07/29/23 [History Last Taken 09/28/23] nitroglycerin 0.4 mg sublingual tablet 0.4 mg buccal Q5M PRN chest pain 07/29/23[History Last Taken Unknown] oxycodone myristate 9 mg capsule sprinkle extended release 12 hr(DON'T CRUSH) (Xtampza ER) 13.5 mg PO Q12H 07/29/23 [History Last Taken Unknown] sucralfate 1 gram tablet 1 g PO Q8H 07/29/23 [History Last Taken Unknown] albuterol sulfate 2.5 mg/3 mL (0.083 %) solution for nebulization 2.5 mg continuous nebulization Q6H PRN shortness of breath or wheezing 09/05/23 [History Last Taken Unknown] melatonin 3 mg capsule 3 mg PO QHS 09/05/23 [History Last Taken Unknown] Allergy/AdvReac Type Severity Reaction Status Date / Time No Known Allergies Allergy Verified 09/29/23 17:44 Family History Mother Hypertension CAD (coronary artery disease) CVA (cerebral vascular accident) Myocardial infarction Grandmother Myocardial infarction Surgical History History of cardiac catheterization History of hysterectomy History of left heart catheterization (01/20/22) History of total hysterectomy Hx of appendectomy Hx of esophagogastroduodenoscopy Social History household members: none Smoking Status: Former smoker alcohol intake: never substance use type: does not use ROS ROS ED ROS Narrative Constitutional: No fever, no chills. HEENT: No sore throat. No neck pain. No loss of vision. No rhinorrhea. Cardiovascular: Positive chest pain. No palpitations. No pedal edema. Respiratory: No cough, no shortness of breath. Abdominal: Epigastric to left upper quadrant abdominal pain. No nausea. No vomiting. Genitourinary: No dysuria. No hematuria. Musculoskeletal: No myalgias. No arthralgias. Neurologic: No headaches. No dizziness. No lightheadedness. Skin: No rash. No change in color. Psychiatric: No depression. No anxiety. EXAM Physical Exam Narrative Exam Narrative: Afebrile. Vital signs noted. HEENT: Normocephalic. Atraumatic. PERRL, EOMI. Neck soft and supple. No pointtenderness or step off. Cardiovascular: Regular rate and rhythm. No murmurs, rubs, or gallops appreciated. Respiratory: No tachypnea. Lungs clear to auscultation bilaterally. Gastrointestinal: Abdomen soft, nontender, with normoactive bowel sounds. No rebound or guarding. Neurological: Awake. Alert. Nonfocal, nonlateralizing. Skin: No rash. Normal color. No pallor. Musculoskeletal: No pedal edema. Full range of motion extremities. Const Vital Signs: 09/29/23 17:45 09/29/23 17:44 09/29/23 18:13 Temperature 97.6 F L Temperature Source Temporal Pulse Rate 76 Respiratory Rate 16 Respiratory Effort Normal Blood Pressure 134/69 H Blood Pressure Mean 90 Pulse Ox 95 Oxygen Delivery Method Room Air Room Air 09/29/23 19:53 Temperature Temperature Source Pulse Rate 70 Respiratory Rate 13 Respiratory Effort Blood Pressure 159/83 H Blood Pressure Mean 108 Pulse Ox 95 Oxygen Delivery Method Room Air MDM MDM MDM Narrative Medical decision making narrative: In the differential diagnosis would be acute coronary syndrome versus esophagealrupture versus pancreatitis versus gastritis. Comprehensive workup was pursued. She does have a history of hypertension and reported cardiomyopathy. EKG was obtained and interpreted by myself independently as normal sinus rhythm at 81 bpm without ectopy or acute ST changes. No STEMI. I feel that cardiac ischemia/STEMI has been ruled out. I will obtain troponins serially. She was given a GI cocktail for pain. Chest x-ray will also be obtained along with CBC,CMP, and lipase. I reviewed the patient's endoscopy report and she has longstanding Retana's esophagus which was ablated, and additionally, a medium sized hiatal hernia. I do feel that this would be some of her chest pain etiology. I reviewed her laboratory work. She has normal white count of 10.2, hemoglobin stable at 11.6, hematocrit 35.2, platelet count normal at 258. Electrolyte panel shows chloride slightly elevated at 109 which I think is nonspecific, glucose is appropriately elevated at 122 with an anion gap low at 4. AST low at10 and a all T low at 12 with alk phos normal at 107. Lipase is normal at 16. I do not think she has a pancreatitis. Initially, she was given a GI cocktail which she states helped with her chest pain, but she was having epigastric to left upper quadrant pain. She was given 1 dose of morphine, and CT of the abdomen pelvis was obtained. I reviewed the radiology report and there is no acute process, no obstruction, stable pneumobilia with stent placement. Her initial high-sensitivity troponin is 34 with repeat being 31. I was able to discuss patient with Dr. Martinez with gastroenterology who agrees this is longstanding pain from her Retana's esophagus. At this point in time, was feltthat she could be [facility] the [facility]. I do not feel she requires admission at this time. She continued to complain of pain so she was administered an intramuscular injection of Bentyl. I feel she can be dischargedto follow-up. Disposition is discharged to [facility] facility in stable condition. History & Record Review Discussion w/independent historian: Patient Additional record(s) reviewed:: Prior outpatient record, Prior ED visit and Prior labs Lab Data Attestation: I reviewed the patient's lab results. Labs: Laboratory Results - last 24 hr 09/29/23 09/29/23 18:17 20:20 WBC 10.2 RBC 3.76 L Hgb 11.6 L Hct 35.2 L MCV 93.6 MCH 30.9 MCHC 33.0 RDW Std Deviation 44.2 H RDW Coeff of Sariah 12.8 Plt Count 258 MPV 9.0 Immature Gran % (Auto) 0.600 Neut % (Auto) 74.3 H Lymph % (Auto) 18.9 L [place] % (Auto) 5.8 Eos % (Auto) 0.2 Baso % (Auto) 0.2 Absolute Neuts (auto) 7.6 Absolute Lymphs (auto) 1.94 Nucleated RBC % 0 Sodium 141 Potassium 3.9 Chloride 109 H Carbon Dioxide 28.0 Anion Gap 4 L BUN 16 Creatinine 0.93 Estim Creat Clear Calc 70.55 Est GFR (MDRD) Af Amer 78 Est GFR (MDRD) Non-Af 64 BUN/Creatinine Ratio 17.2 Glucose 122 H Calcium 9.2 Total Bilirubin 0.30 AST 10 L ALT 12 L Alkaline Phosphatase 107 Troponin I High Sens 34 31 Total Protein 6.8 Albumin 2.9 L Globulin 3.9 Albumin/Globulin Ratio 0.7 L Lipase 16 Radiography Diagnostic Testing: Clinical Impression(s) from Imaging Studies Chest X-Ray 09/29/23 18:15 IMPRESSION: No acute pulmonary process Electronically Signed: Bentley Khan MD at 18:47 EST Reading Location ID and State: [facility] / [place] , Service support , Abdomen/Pelvis CT 09/29/23 18:39 IMPRESSION: Stable pneumobilia from stent placement within the biliary tree. No complications or change since the previous study. Stable nonobstructing nephrolithiasis Stable retrocardiac hiatal hernia Colonic diverticulosis without evidence of acute diverticulitis. There is nonspecific thickening in the sigmoid and an underlying lesion cannot be excluded. Small bowel ileus Degenerative bony changes Stable aneurysmal dilatation of the infrarenal abdominal aorta No significant interval change Electronically Signed: Bentley Khan MD at 19:20 EST , Discharge Plan Triage Chief Complaint: Chest Pain ED Provider: Waqas Hart Dx/Rx/DC Orders Clinical Impression: Abdominal pain, Chest pain Instructions: ED Abdominal Pain Unkn Cause Fem, ED Chest Pain, Uncertain Cause Prescriptions: No Action budesonide-formoterol [Symbicort] 160-4.5 mcg/actuation HFA aerosol inhaler 1 puff inhalation BID Qty: 10.2 11RF Spiriva Respimat 2.5 mcg/actuation mist 2 puff inhalation DAILY Qty: 4 11RF albuterol sulfate 90 mcg/actuation HFA aerosol inhaler 2 puff inhalation Q6H MDD 10 puffs PRN (Reason: shortness of breath or wheezing) Qty: 8.5 6RF Rx Instructions: This inhaler must be used with a spacer device. (DME) Aerochamber MV Spacer See Rx Instructions .ROUTE .MEDSUPPLY Qty: 1 0RF Rx Instructions: As directed lorazepam [Ativan] 1 mg tablet 1 mg PO BID PRN (Reason: anxiety) atorvastatin [Lipitor] 40 mg tablet 40 mg PO QHS 30 Days Qty: 30 0RF clopidogrel [Plavix] 75 mg tablet 75 mg PO DAILY 30 Days Qty: 30 0RF lisinopril 2.5 mg tablet 2.5 mg PO DAILY 30 Days Qty: 30 0RF ondansetron 4 mg tablet,disintegrating 4 mg PO Q8H PRN PRN (Reason: Nausea) Qty: 12 0RF pantoprazole 40 mg tablet,delayed release (DR/EC) 40 mg PO Q12H Qty: 60 3RF albuterol sulfate 2.5 mg /3 mL (0.083 %) solution for nebulization 2.5 mg continuous nebulization Q6H PRN (Reason: shortness of breath or wheezing) melatonin 3 mg capsule 3 mg PO QHS amiodarone 200 mg tablet 200 mg PO DAILY gabapentin 400 mg capsule 400 mg PO Q8H carvedilol 6.25 mg tablet 6.25 mg PO Q12H furosemide 20 mg tablet 20 mg PO Q12H nitroglycerin 0.4 mg tablet, sublingual 0.4 mg buccal Q5M PRN (Reason: chest pain) Xtampza ER 9 mg cap,sprinkl,ER12hr(DONT CRUSH) 13.5 mg PO Q12H sucralfate 1 gram tablet 1 g PO Q8H Primary Care Provider: Danny Green Referrals: Nora Crespo NP, TRAINING MANAGER-C [Non-Staff -Ordering Privileges] - As soon as possible Activity Restrictions/Additional Instructions: Follow-up with your primary care provider, and with Dr. Martinez as soon as possible. Disposition Disposition: Home, Self Care What to do if you have Problems For any increased pain, shortness of breath, bleeding, nausea or vomiting, chestpain, or any unexpected problems, contact your Primary Care Provider. Call [facility] ([phone]) or report to the closest Emergency Room. Call 911 if necessary. 09/29/232118 <Electronically signed by Waqas Hart MD> Cosigner Signature (if applicable): CC: Dr. Danny Green MD ~ Signed [facility] Work Phone: 1(954) 542-787301-22-2024 History and physical note Author Rakesh Martinez [facility] September 28, 2023 9:17am Note Date/Time September 28, 2023 9 :17am [facility] Medical Records Department [address] [place] [id number] History & Physical Exam 09/28/23 0916 MR#: [id number] Acct: [id number] Name: MARCIA MASCORRO Rep #:[id number] : 1955 67 From: Rakesh Martinez DO PCP: FATMATA Quevedo Status:[facility] Location: [place] [address] HPI - General HPI Narrative MARCIA MASCORRO, is a 67 F who presents [facility] Medical History Anxiety and depression Arthritis Atherosclerotic heart disease of [place] coronary artery without angina pectoris Back pain Bullous emphysema Calculus of left kidney Cardiology follow-up encounter Chest pain Chronic cough COPD (chronic obstructive pulmonary disease) COPD with asthma Depression Difficulty chewing DVT (deep venous thrombosis) Easy bruising Elevated troponin Esophagitis, unspecified without bleeding Essential hypertension Excessive bleeding Gastric reflux GERD (gastroesophageal reflux disease) High cholesterol History of CHF (congestive heart failure) History of echocardiogram History of edema History of irregular heartbeat History of non-ST elevation myocardial infarction (NSTEMI) (09/01/21) History of pain when walking History of renal disease History of stress test History of ulceration Hoarseness Hyperlipidemia Injury of back Ischemic cardiomyopathy Kidney stones Leg cramps Myocardial infarct Obesity (BMI 30.0-34.9) Old anterior wall myocardial infarction Opiate dependence EVELYN (obstructive sleep apnea) Osteoporosis Other chronic pain Personal history of transient ischemic attack (TIA), and cerebral infarction without residual deficits Post-menopausal Shortness of breath on exertion Smoker Sustained SVT TIA (transient ischemic attack) Tobacco abuse Unspecified combined 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 Wears glasses Home Medications atorvastatin 40 mg tablet (Lipitor) 40 mg PO QHS 30 days #30 tabs 01/04/23 [Rx Last Taken Unknown] clopidogrel 75 mg tablet (Plavix) 75 mg PO DAILY 30 days #30 tabs 01/04/23 [Rx Last Taken 09/25/23] lisinopril 2.5 mg tablet 2.5 mg PO DAILY 30 days #30 tabs 01/04/23 [Rx Last Taken 06/24/23] ondansetron 4 mg disintegrating tablet 4 mg PO Q8H PRN PRN Nausea #12 tabs 01/13/23 [Rx Last Taken Unknown] albuterol sulfate 90 mcg/actuation aerosol inhaler 2 puff inhalation Q6H PRN shortness of breath or wheezing #8.5 grams 02/17/23 [Rx Last Taken Unknown] budesonide-formoterol HFA 160 mcg-4.5 mcg/actuation aerosol inhaler (Symbicort) 1 puff inhalation BID #10.2 grams 02/17/23 [Rx Last Taken Unknown] inhalational spacing device (Aerochamber MV spacer) #1 ea 02/17/23 [Rx Last Taken Unknown] tiotropium bromide 2.5 mcg/actuation mist for inhalation (Spiriva Respimat) 2 puff inhalation DAILY #4 grams 02/17/23 [Rx Last Taken Unknown] pantoprazole 40 mg tablet,delayed release 40 mg PO Q12H #60 tabs 06/24/23 [Rx Last Taken 09/28/23] lorazepam 1 mg tablet (Ativan) 1 mg PO BID PRN anxiety 07/16/23 [History Last Taken 09/28/23] amiodarone 200 mg tablet 200 mg PO DAILY 07/22/23 [History Last Taken Unknown] carvedilol 6.25 mg tablet 6.25 mg PO Q12H 07/29/23 [History Last Taken 09/28/23] furosemide 20 mg tablet 20 mg PO Q12H 07/29/23 [History Last Taken Unknown] gabapentin 400 mg capsule 400 mg PO Q8H 07/29/23 [History Last Taken 09/28/23] nitroglycerin 0.4 mg sublingual tablet 0.4 mg buccal Q5M PRN chest pain 07/29/23[History Last Taken Unknown] oxycodone myristate 9 mg capsule sprinkle extended release 12 hr(DON'T CRUSH) (Xtampza ER) 13.5 mg PO Q12H 07/29/23 [History Last Taken Unknown] sucralfate 1 gram tablet 1 g PO Q8H 07/29/23 [History Last Taken Unknown] albuterol sulfate 2.5 mg/3 mL (0.083 %) solution for nebulization 2.5 mg continuous nebulization Q6H PRN shortness of breath or wheezing 09/05/23 [History Last Taken Unknown] melatonin 3 mg capsule 3 mg PO QHS 09/05/23 [History Last Taken Unknown] Allergy/AdvReac Type Severity Reaction Status Date / Time No Known Allergies Allergy Verified 09/28/23 09:11 Family History Mother Hypertension CAD (coronary artery disease) CVA (cerebral vascular accident) Myocardial infarction Grandmother Myocardial infarction Surgical History History of cardiac catheterization History of hysterectomy History of left heart catheterization (01/20/22) History of total hysterectomy Hx of appendectomy Hx of esophagogastroduodenoscopy Social History household members: none Smoking Status: Former smoker alcohol intake: never substance use type: does not use Assessment & Plan Assessment/Plan (1) Barretts esophagus: QUALIFIERS: Retana's esophagus type: with low grade dysplasia Qualified Code(s): K22.710 - Retana's esophagus with low grade dysplasia PLAN: She was explained alternatives, risk, benefits including not withstanding bleeding, infection, sepsis, perforation, need for emergent urgent . She have an ASA of 3. 09/28/23 0917 <Electronically signed by Rakesh Martinez DO> Cosigner Signature (if applicable): CC: FATMATA Crespo; Rakesh Martinez DO~ Signed [facility] Work Phone: 1(783) 462-929401-22-2024 Procedure [facility] 09-28-2023 Procedure [facility]11-21-2023 History and physical note Author Rakesh Martinez [facility] July 28, 2023 11:09am Note Date/Time July 28, 2023 11:07am [facility] Medical Records Department [address] [place] [id number] History & Physical Exam 07/28/23 1107 MR#: [id number] Acct: [id number] Name: MARCIA MASCORRO Rep #:[id number] : 1955 67 From: Rakesh Martinez DO PCP: FATMATA Quevedo Status[place] [facility] [place] Location: [place] [address] History and Physical Date of Admission: 07/28/23 67 F who presents to the office today for an ERCP. She is not having worsening abdominal pain and has been having some elevated alkaline phosphatase. We will order an MRCP. The findings were as follows: Mild dilatation of the CBD and CHD with no obstructing stone, mass or stricture.Consider ERCP to evaluate for occult stone or mass at the ampulla. PMH COPD; anxiety; depression; HTN; HLD; osteoporosis; cardiomyopathy; CHF; PVD [facility] ED 5.05.30 with retrosternal pain/pressure. Workup without concern. Discharged with Carafate and Zofran. [facility] ED 5.06.29 with right sided abdominal pain/ache with some vaginal spotting despite total hysterectomy history. ? Biochemical CBC, CMP, lipase without pertinent abnormality. ? AST L12-ALT 15-AP H196 ? CT abd/pel intraluminal density within gallbladder; diverticulosis; stable aortic aneurysm ? US RUQ normal liver and gallbladder and pancreas. *I established 05.22.23 Resident at [place] at [place] where she did receive ST services. Postprandial nausea and pain in her ribs and back with dysphagia with anything that is put into her mouth. BM occur every 2-3 days with use of laxatives with hard stools with incomplete evacuation. ROS Const Constitutional: No anorexia, fatigue, fever(s), weight change or sleep problems Eyes Eyes: No change in vision ENT ENT: No abnormal hearing, difficulty swallowing, mouth lesions, tongue swelling or throat swelling Resp Respiratory: No cough or shortness of breath Cardio Cardiology: No chest pain at rest, chest pain with exertion, shortness of breathor dyspnea on exertion Gastro GI: No difficulty swallowing Genitourinary-Female: No difficulty urinating or burning urination Musc Musculoskeletal: No joint pain, joint swelling, muscle weakness or decreased muscle mass Skin Skin: No hair loss in leg, yellowing of the eye, itchy eyes, rash, skin ulcer orskin swelling Neuro Neurology: No abnormal hearing, abnormal movements, confusion, unsteady gait/balance or memory loss Psych Psychiatric: No anxiety, No confusion and No memory loss Endo Endocrine: No fatigue or weight change Aller/Imm Allergy/Immunologic: No itchy eyes, throat swelling or tongue swelling Pranav/Lymp Hematologic/Lymphatic: No easy bleeding, easy bruising or enlarged lymph nodes Exam Const General: cooperative and comfortable Nutritional Appearance: average body habitus and well nourished [facility] Head: normal to inspection Ears: hearing grossly normal bilaterally Nose: external nose normal Face and sinus: normal facial exam Mouth: oral mucosae normal Throat: posterior oropharynx normal Eyes General: appearance normal, both eyes and all related structures Neck Neck: normal visual inspection Chest Chest palpation & inspection: normal inspection of the chest and normal palpation of entire chest wall Resp Effort & Inspection: normal respiratory effort Auscultation: Bilateral: Clear to Auscultation Cardio Palpation: normal PMI Rate: regular rate Rhythm: regular rhythm GI Inspection: normal to inspection Auscultation: normal bowel sounds Percussion: normal to percussion Palpation: no hepatosplenomegaly Skin General: no rashes or lesions noted Neuro General: patient alert Extrem General: normal to inspection Psych Affect: normal affect Quality Reporting Tobacco Screening ([facility] 138) Smoking Status: Current some day smoker Assessment and Plan Assessment and Plan (1) Dysphagia: Status: Chronic Plan: Patient presents for chronic pains and symptoms that have been going on for 6-12months and anxiety, saying that she is out of her Ativan, she thinks that is contributing to all of her symptoms, and her daughter also states that she is here looking for the possibility of placement to [facility] facility. This is a complex case. The patient is experiencing pain when she swallows. The pain is in her left shoulder and her upper abdomen. She states whenever she swallows liquids or food she has pain immediately. This past night, she states she was up all nightsick after having the pain. There is not a delay with the onset of pain after eating but she does have some pain in her right upper quadrant and they are bothconcerned that she may have gallstones because they were told that at some pointin the past. She states she has been generally weak for about 3 weeks and trouble getting around her house/apartment because of feeling very weak and sweating but no other exertional specific symptoms. She also complains of esophageal dysphagia. The differential diagnosis for abdominal pain esophageal dysphagia does include IBS, esophageal spasm, esophageal dysmotility disorder, H. pylori associated gastritis. She will undergo an upper endoscopy with possible dilation of the upper esophagus. She will also need an MRCP because she had a ultrasound that showed a dilated commonbile duct up to 7 mm in the setting of normal liver enzymes. Differential diagnosis could be ampullary lesion, distal biliary stricture, choledochal cyst,micro choledocholithiasis. She will undergo ERCP because of abnormal MRCP. Sheis okay with this plan. I have examined the patient and the H&P has been reviewed. There are no clinicalchanges since date of exam. 07/28/23 1109 <Electronically signed by Rakesh Martinez DO> Cosigner Signature (if applicable): CC: FATMATA Crespo; Rakesh Martinez DO~ Signed [facility] Work Phone: 1(115) 535-462811-21-2023 Procedure [facility] 07-28-2023 Procedure [facility]10-18-2023 Procedure note [facility]10-18-2023 Procedure [facility] 05-04-2023 Miscellaneous Notes* Telephone Encounter - Marisa Mcdermott LPN - 05/04/2023 4:25 PM EDT PATIENT NOTIFIED OF SAME. * Telephone Encounter - Nora Crespo APRN.CNP - 05/04/2023 10:39 AM EDT Please let her know EMG results are that she has a mild polyneuropathy and also has some residual pain/symptoms likely from an old issue in her back around L5 and the lower part of her back at S1 that would be contributing to her symptoms, this was more noticeable on the right side. * Telephone Encounter - Linh Villalobos RN - 05/04/2023 9:55 AM EDT Patient calls and asking about EMG results that she had done on 05/01/2023. Please review and advise, Linh Vlilalobos RN documented in this encounterC[facility]23 History of Present illness Narrative* Cordell Kirkpatrick DO - 05/01/2023 1:32 PM EDT UNIVERSAL PROTOCOL / SAFETY CHECKLIST Procedure to [...] of Care Visit completed when applicable. Penny Alvarez, EMG Noble Kirkpatrick DO documented in this encounterCleveland Clinic [facility]08-24-2023 Miscellaneous Notes* Telephone Encounter - Randee Dobbs LPN - 04/30/2023 11:[address] scheduled, 05/13/2023. Randee Dobbs LPN * Telephone Encounter - Nora Crespo APRN.CNP - 04/29/2023 12:53 PM EDT New script sent for RX, please help with setting up Ct of lungs. Thanks! * Telephone Encounter - Linh Villalobos RN - 04/29/2023 12:29 PM EDT Patient states that vitamin D. Order was sent to wrong pharmacy. Patient has to use [facility] which is pharmacy for [facility] which she currently is at. Patient also requesting physical therapy orders to be faxed to [facility] [phone]. Faxed as requested. Linh Villalobos RN * Telephone Encounter - Nora Crespo APRN.CNP - 04/28/2023 10:01 AM EDT Please let her know that chest CT has been ordered, please help with scheduling. * Telephone Encounter - Danna Centeno LPN - 04/27/2023 4:48 PM EDT Pt called back and information below given. Pt would like to have a CT of the lung done. Once orders are in, please call pt to help get apt booked. Danna Centeno LPN * Telephone Encounter - Marisa Mcdermott LPN - 04/27/2023 1:30 PM EDT Attempted to reach patient with no answer and unable to leave a message. * Telephone Encounter - Nora Crespo APRN.CNP - 04/27/2023 12:40 PM EDT Vitamin d script has been sent. If her cough/wheeze is persistent we can order a lung CT since she is due for routine lung CT monitoring giving her smoking history. Let me know if she feels further testing is needed. * Telephone Encounter - Micah Paige RN - 04/27/2023 10:02 AM EDT Pt called and is notified of providers results and instructions. Pt voices understanding. Pt couldn't remember who she was told to go to for Nephrology. Per the Nephrology consult, Pt didn't want totravel to [facility] or any other location. Faxed over orders to [facility] (Dr. Ochoa).. I assume orders have already been sent over, so let Pt know [facility] should be calling her, or let her know she could call in toschedule. Pt states she isn't taking any supplements or anything with Vit D in it. Micah Paige RN * Telephone Encounter - Nora Crespo APRN.CNP - 04/27/2023 9:37 AM EDT Please call patient and let her know [...] comparison to past numbers. documented in this encounterCleveland Clinic [facility] Hospital08-18-2023 Miscellaneous Notes* Telephone Encounter - Ania Yee OCCA - 04/24/2023 2:41 PM EDT In review of patient chart, she was seen in office 04/15/23 with Andrew Crespo. Closing encounter as nothing further at this time. JERRI Tay * Telephone Encounter - Lyndsey Acevedo APRN.CNS - 04/06/2023 2:17 PM EDT See below. Appears she was admitted from [facility] perhaps, did address in my office note in Jan 13 2023. Check to see if addressed at [facility]. My addendum to note 01/15/2023: ADD: January 15, 2023 Message from daughter indicating interest in SNF. Will place consult for SW. If admitted /ER visit again would endorse seeing SW at [facility], referral to SNF from hospital. Lyndsey Acevedo APRN.ALMOND ROASTER She returned to ER [facility] 01/14/2023 and 01/16/2023. I did reach out to our social work msw. Her note 01/15/2023 excerpted: Tiffani spoke with patient daughter Marleny in regards to patient needing either SNF or Assisted Living.Marleny notes that patient has been in and out of hospital lately. Patient had cameron declining SNF/ALand Marleny notes that she is now open to going to a facility. Tiffani discussed with daughter if patient has care support representative through [employer]. Marleny notes that she is not sure if patient has a care support representative through [employer]. Sw encouraged Marleny to check to see as a care support representative through [employer] could help with assisting patient with admit to AL. They could also help with level of care assessment to see if patient would qualify for SNF or AL. Tiffani provided Marleny with [employer] number to reach out and explore care services. Tiffani noted different SNF/Al such as [facility], [facility], [facility]. Discussed [facility] Older Adult Guide on their website. Marleny notes that she does not knowabout the different SNF/AL in the community. Tiffani noted that the Older Adult Resource Guide has listing in the back of the different facilities. Marleny notes that will be helpful in regards to looking at different facility options for patient. Marleny states that she will start with [facility] and see what help they can provide herwith facilities and then also look at and [...] have an appointment in April with Nora. * Telephone Encounter - Maureen Hassan LPN - 04/06/2023 1:11 PM EDT Charlene from [facility] states pt has been in a fci facility since 01/18/23 however [facility] does mot have an authorization on file. Pt was not authorized prior to going in to facility. Charlene is requesting provider to add to med record notes why pt needs skilled nsg services & how long pt it expected to be in facility. Maureen Hassan LPN documented in this encounterCleveland Clinic [facility]08-11-2023 Miscellaneous Notes* Telephone Encounter - Lyndsey Acevedo APRN.CNS - 04/17/2023 3:36 PM EDT OK * Telephone Encounter - Amber Burroughs - 04/17/2023 12:38 PM EDT Marcia Mascorro is calling Nora Crespo APRN.CNP today with concern regarding the ear drops that were sent to [facility] have not been filled and patient stating that it should be resent please to [facility] [place] [facility] the pharmacy is [facility] Call pharmacy [phone] Note: I have loaded that pharmacy in patient chart Patient also stating that she was to start the eardrops Thursday and today she still does not havethat RX. Patient has been identified by name and birthdate. Duration of symptoms: days Person calling: self Call patient at: on cell [phone] (home) [phone] (cell) Was an appointment scheduled: No Closing statement: Results or non-symptom based questions: Thank you for calling [facility], your call will be returned within the next business day. Amber Le documented in this encounterCleveland Clinic [facility]08-10-2023 Miscellaneous Notes* Telephone Encounter - Elsy Sanz RN - 04/16/2023 1:52 PM EDT Margaret-nurse at [facility] calling to request patient's recent OV note with Nora Crespo CNP from 04/15/23 be faxed to her. Patient currently resides there. Faxed as requested to [phone]. Elsy Sanz RN documented in this encounterCleveland Clinic [facility] Hospital06-13-2023 Procedure [facility]05-15[facility] History of Present illness Narrative* GEORGETTE Khanna - 01/19/2023 12:13 PM EDT Sw spoke with patient daughter Marleny and she reports that patient was admitted to [facility] thursday. * GEORGETTE Khanna - 01/15/2023 9:59 AM EDT Sw called patient to discuss referral request referral regarding SNF. No answer on home phone. Mobile phone rings and no vmail to leave message. documented in this encounterCleveland Clinic [facility] Hospital05-12-2023 Miscellaneous Notes* Telephone Encounter - Marisa Mcdermott LPN - 01/16/2023 4:10 PM EDT PATIENT's daughter NOTIFIED OF SAME. * Telephone Encounter - Lyndsey Acevedo APRN.CNS - 01/16/2023 3:45 PM EDT Noted. Prescription sent per request. Previously provided with Nicotrol nasal spray, confirm not also using that * Telephone Encounter - Elsy Sanz RN - 01/16/2023 1:09 PM EDT Pt's daughter Marleny calling with patient. Marleny states patient will be admitting to [facility] this afternoon, which does not allow smoking and pt is a smoker. Marleny calling toask if Lyndsey LOCKWOOD would send script for nicotine patches for pt to [facility]? Please call Marleny with any updates. [phone]. Thank you. documented in this encounterCleveland Clinic [facility] Hospital05-12-[address] Byers [facility] January 16, 2023 1:01pm Note Date/Time January 16, 2023 8:14a m [facility] Medical Records Department [address] [place] [address] Emergency Department Summary 01/16/23 MR#: [id number] Acct: [id number] Name: MARCIA MASCORRO Rep #:[id number] : [id number] 67 From: Linus Byers MD PCP: Dr. Gabriel Galvan MD Status:RE G ER Location: ED HPI History of Present Illness Chief Complaint: Chest Pain Informant: patient and family (daughter) Onset/Context/Timing Onset: Month(s) Narrative Narrative: Patient presents for chronic pains and symptoms that have been going on for 6-12months and anxiety, saying that she is out of her Ativan, she thinks that is contributing to all of her symptoms, and her daughter also states that she is here looking for the possibility of placement to fci facility. This is a complex case. The patient is experiencing pain when she swallows. The pain is in her left shoulder and her upper abdomen. She states whenever she swallows liquids or food she has pain immediately. This past night, she states she was up all nightsick after having the pain. There is not a delay with the onset of pain after eating but she does have some pain in her right upper quadrant and they are bothconcerned that she may have gallstones because they were told that at some pointin the past. She states she has been generally weak for about 3 weeks and trouble getting around her house/apartment because of feeling very weak and sweating but no other exertional specific symptoms. She was admitted about 2 weeks ago because of these symptoms and an elevated troponin. [facility] Medical History Anxiety and depression Atherosclerotic heart disease of [place] coronary artery without angina pectoris Calculus of left kidney COPD (chronic obstructive pulmonary disease) Depression Elevated troponin Essential hypertension GERD (gastroesophageal reflux disease) History of non-ST elevation myocardial infarction (NSTEMI) (09/01/21) Hyperlipidemia Ischemic cardiomyopathy Kidney stones Myocardial infarct Obesity (BMI 30.0-34.9) Old anterior wall myocardial infarction Opiate dependence EVELYN (obstructive sleep apnea) Osteoporosis Personal history of transient ischemic attack (TIA), and cerebral infarction without residual deficits Smoker Sustained SVT TIA (transient ischemic attack) Tobacco abuse Home Medications lorazepam 1 mg tablet 1 mg PO BID PRN PRN Anxiety 06/15/21 [History Last Taken Unknown] gabapentin 300 mg capsule 300 mg PO TID nerve pain #90 caps 01/01/22 [Rx Last Taken 08/11/22] amiodarone 200 mg tablet 200 mg PO DAILY 30 days #30 tabs 01/04/23 [Rx Last Taken Unknown] atorvastatin 40 mg tablet (Lipitor) 40 mg PO QHS 30 days #30 tabs 01/04/23 [Rx Last Taken Unknown] carvedilol 6.25 mg tablet 6.25 mg PO BID 30 days #60 tabs 01/04/23 [Rx Last Taken Unknown] clopidogrel 75 mg tablet (Plavix) 75 mg PO DAILY 30 days #30 tabs 01/04/23 [Rx Last Taken Unknown] duloxetine 30 mg capsule,delayed release (Cymbalta) 30 mg PO DAILY #30 caps 01/04/23 [Rx Last Taken Unknown] furosemide 20 mg tablet 20 mg PO BIDLX 30 days #60 tabs 01/04/23 [Rx Last Taken Unknown] lisinopril 2.5 mg tablet 2.5 mg PO DAILY 30 days #30 tabs 01/04/23 [Rx Last Taken Unknown] pantoprazole 40 mg tablet,delayed release (Protonix) 40 mg PO BID 30 days #60 tabs 01/04/23 [Rx Last Taken Unknown] rivaroxaban 20 mg tablet See Rx Instructions .Route .COMPLEX 30 days #30 tabs 01/04/23 [Rx Last Taken Unknown] sucralfate 100 mg/mL oral suspension (Carafate) 10 ml PO Q6H 30 days #1,000 mL 01/04/23 [Rx Last Taken Unknown] tiotropium bromide 2.5 mcg/actuation mist for inhalation (Spiriva Respimat) 2 puff inhalation DAILY #4 grams 01/04/23 [Rx Last Taken Unknown] ondansetron 4 mg disintegrating tablet 4 mg PO Q8H PRN PRN Nausea #12 tabs 01/13/23 [Rx Last Taken Unknown] Allergy/AdvReac Type Severity Reaction Status Date / Time No Known Allergies Allergy Verified 01/16/23 07:34 Family History Mother Hypertension CAD (coronary artery disease) CVA (cerebral vascular accident) Myocardial infarction Grandmother Myocardial infarction Surgical History History of hysterectomy History of left heart catheterization (01/20/22) History of total hysterectomy Hx of appendectomy Social History household members: none Smoking Status: Current some day smoker tobacco type: cigarettes alcohol intake: never substance use type: does not use ROS ROS ED Constitutional Constitutional ED: Reports malaise and sweats; Denies chills or fever(s) Eyes Eyes: Denies change in vision or diplopia ENT ENT ED: Denies rhinorrhea or sore throat Cardiovascular Cardiovascular: Reports chest pain; Denies palpitations Respiratory/Chest Respiratory/Chest: Denies cough or dyspnea Gastrointestinal Gastrointestinal: Reports abdominal pain, nausea and vomiting; Denies diarrhea, hematemesis, hematochezia or melena Genitourinary Genitourinary ED: Denies dysuria or hematuria Musculoskeletal Musculoskeletal: Denies back pain or neck pain Integumentary Denies abscess or rash Neurologic Neurologic: Denies headache(s), paresthesias or weakness Psychiatric Psychiatric: Reports anxiety; Denies suicidal thoughts EXAM Physical Exam Const Vital Signs: 01/16/23 07:31 01/16/23 07:34 01/16/23 10:30 Temperature 98.1 F Temperature Source Temporal Pulse Rate 85 Respiratory Rate 16 Respiratory Effort Normal Respiratory Pattern Normal Blood Pressure 157/88 H 144/83 H Blood Pressure Mean 111 101 Pulse Ox 95 97 Oxygen Delivery Method Room Air 01/16/23 11:45 Temperature Temperature Source Pulse Rate Respiratory Rate Respiratory Effort Respiratory Pattern Blood Pressure 141/82 H Blood Pressure Mean 99 Pulse Ox Oxygen Delivery Method Positive well nourished and well developed General Appearance ED: well developed and NAD HEENT Reports moist mucous membranes normocephalic and atraumatic Eyes PERRL and EOMs intact bilaterally Neck full ROM and supple Chest Wall inspection of chest normal and palpation of chest normal Resp normal respiratory effort and clear to auscultation bilaterally Cardio regular rate, regular rhythm and no murmurs GI non-distended GI Narrative: Mild tenderness right upper quadrant and epigastrium. No pulsatile mass. No guarding or rebound tenderness. No palpable organomegaly but limited somewhat by mild abdominal obesity. Auscultation: normoactive bowel sounds Palpation: soft Back/Spine no CVA tenderness General Back: other FROM Extremity normal to inspection General Extremety ED: Negative for edema, pulses abnormal or tenderness General Extremity: Negative for edema or pulses abnormal Neuro oriented x3, CN's II-XII intact bilaterally and no sensory deficits noted Sensorium / Orientation: awake and alert Motor Exam: strength 5/5 throughout Psych Mood & Affect: anxious and tearful Skin no rashes or lesions noted and no wounds MDM MDM MDM Narrative Medical decision making narrative: I reviewed prior records on this patient. It seems the last admission a couple weeks ago, she had a cardiology consult and they did not think that her discomfort was cardiac, elevated troponin more likely due to her cardiomyopathy,possibly acute on chronic congestive heart failure, she has an EF of 20%, and she had an echocardiogram showing an LV thrombus for which they added rivaroxaban to her aspirin and clopidogrel. She does have peripheral vascular disease as well which is apparently why she is on DAPT. She had a heart catheterization last year that showed stable coronary disease and the worst lesion was 50% and a smooth calcified distal LAD. In addition to all of this, the discharge summary noted that the patient had a prior EGD showing grade 3 distal esophagitis, and the patient is noncompliant with her medications. She admits this today, admitting also that she was confused about what medications to take and what not to take, so she was erring on the side of caution and not taking the majority of her medications at times. She does admit that she has Carafate liquid at home and does not take it correctly. I suspect the distal esophagitis is what is causing her immediate pain with swallowing any food or liquids. Furthermore, she had a CT followed by a gallbladder ultrasound 2 days ago during an ER visit showing that she does not have any signs of gallstones oracute gallbladder disease, although the CT showed suspicion of it. The gallbladder is the better test. Obviously this does not rule out the possibility of chronic cholecystitis for which she would need a HIDA or an MRCP. I explained this to the patient and her daughter and they understand it better now. The daughter states that she is looking for residential placement. She startedthis process with the social work msw and staff at [employer] where she is an employee, and that is in process. Since the patient came here to the ER today she is asking to speak with social work to see if this can be expedited. She does understand that the patient will have to qualify, she was being scheduled for assessments at home and those have not occurred yet. The patient is asking for Ativan, that was given to her in addition to morphine and Zofran while I repeated her labs. The labs are unremarkable except for somemild prerenal azotemia. Social work is going to see the patient. Social work agrees that the patient is not likely qualify for fci, and pre-CERT would be necessary anyway, but we are able to get her to assisted living and we determined a facility that excepted her, so the plan is to discharge her to their. She does not need any new prescriptions at this time. History & Record Review Additional record(s) reviewed:: Prior inpatient record, Prior outpatient record,Prior ED visit and Prior labs Lab Data Attestation: I reviewed the patient's lab results. Labs: Laboratory Results - last 24 hr 01/16/23 01/16/23 07:20 07:20 WBC 8.5 RBC 4.70 Hgb 15.0 Hct 46.3 MCV 98.5 MCH 31.9 MCHC 32.4 RDW Std Deviation 47.9 H RDW Coeff of Sariah 13.3 Plt Count 380 MPV 9.7 Immature Gran % (Auto) 0.600 Neut % (Auto) 57.9 Lymph % (Auto) 29.3 [place] % (Auto) 8.2 Eos % (Auto) 3.3 Baso % (Auto) 0.7 Absolute Neuts (auto) 4.9 Absolute Lymphs (auto) 2.49 Nucleated RBC % 0 Sodium 143 Potassium 3.7 Chloride 107 Carbon Dioxide 30.0 Anion Gap 6 BUN 24 H Creatinine 1.12 H Estim Creat Clear Calc 44.46 Est GFR (MDRD) Af Amer 63 Est GFR (MDRD) Non-Af 52 L BUN/Creatinine Ratio 21.4 H Glucose 106 Calcium 10.0 Total Bilirubin 0.50 AST 14 L ALT 17 Alkaline Phosphatase 208 H Troponin I High Sens 47 Total Protein 8.1 Albumin 3.7 Globulin 4.4 H Albumin/Globulin Ratio 0.8 L Lipase 40 Rhythm Strip Rhythm Strip: Sinus Rhythm Rate: 85 Ectopy: None Discharge Plan Triage Chief Complaint: Chest Pain ED Provider: Linus Byers Dx/Rx/DC Orders Clinical Impression: Chest pain, non-cardiac, Upper abdominal pain, Anxiety, History of medication noncompliance Instructions: Esophagitis Prescriptions: Continued lorazepam 1 mg tablet 1 mg PO BID PRN PRN (Reason: Anxiety) Label Comments: take 1 tablet by mouth twice a day if needed gabapentin 300 MG capsule 300 mg PO TID Qty: 90 0RF duloxetine [Cymbalta] 30 mg capsule,delayed release(DR/EC) 30 mg PO DAILY Qty: 30 0RF Spiriva Respimat 2.5 mcg/actuation mist 2 puff inhalation DAILY Qty: 4 0RF atorvastatin [Lipitor] 40 mg tablet 40 mg PO QHS 30 Days Qty: 30 0RF carvedilol 6.25 mg tablet 6.25 mg PO BID 30 Days Qty: 60 0RF amiodarone 200 mg tablet 200 mg PO DAILY 30 Days Qty: 30 0RF sucralfate [Carafate] 100 mg/mL suspension 10 ml PO Q6H 30 Days Qty: 1000 0RF Rx Instructions: x 2 weeks clopidogrel [Plavix] 75 mg tablet 75 mg PO DAILY 30 Days Qty: 30 0RF pantoprazole [Protonix] 40 mg tablet,delayed release (DR/EC) 40 mg PO BID 30 Days Qty: 60 0RF furosemide 20 mg tablet 20 mg PO BIDLX 30 Days Qty: 60 0RF lisinopril 2.5 mg tablet 2.5 mg PO DAILY 30 Days Qty: 30 0RF rivaroxaban 20 mg tablet See Rx Instructions .ROUTE .COMPLEX 30 Days Qty: 30 0RF Dose Instruction: TAKE 1 TABLET BY MOUTH DAILY WITH EVENING MEAL Rx Instructions: TAKE 1 TABLET BY MOUTH DAILY WITH EVENING MEAL ondansetron 4 mg tablet,disintegrating 4 mg PO Q8H PRN PRN (Reason: Nausea) Qty: 12 0RF Discontinued doxycycline hyclate 100 mg capsule 100 mg PO BID 4 Days Qty: 9 0RF Primary Care Provider: Gabriel Galvan Referrals: Gabriel Galvan MD [Primary Care Provider] - 5-7 Days Disposition Disposition: Assisted Living What to do if you have Problems For any increased pain, shortness of breath, bleeding, nausea or vomiting, chestpain, or any unexpected problems, contact your Primary Care Provider. Call [facility] ([phone]) or report to the closest Emergency Room. Call 911 if necessary. 01/16/23 1301 <Electronically signed by Linus Byers MD> Cosigner Signature (if applicable): CC: Dr. Gabriel Galvan MD ~ Signed [facility] Work Phone: 1(720) 146-411605-11-2023 Miscellaneous Notes* Telephone Encounter - Lyndsey Acevedo APRN.ALMOND ROASTER - 01/15/2023 4:40 PM EDT Noted * Telephone Encounter - GEORGETTE Khanna - 01/15/2023 3:39 PM EDT Tiffani spoke with patient daughter Marleny in regards to patient needing either SNF or Assisted Living.Marleny notes that patient has been in and out of hospital lately. Patient had cameron declining SNF/ALand Marleny notes that she is now open to going to a facility. Sw discussed with daughter if patient has care support representative through [employer]. Marleny notes that she is not sure if patient has a care support representative through [employer]. Sw encouraged Marleny to check to see as a care support representative through [employer] could help with assisting patient with admit to AL. They could also help with level of care assessment to see if patient would qualify for SNF or AL. Sw provided Marleny with [employer] number to reach out and explore care services. Tiffani noted different SNF/Al such as [facility], [facility], [facility]. Discussed [facility] Older Adult Guide on their website. Marleny notes that she does not knowabout the different SNF/AL in the community. Tiffani noted that the Older Adult Resource Guide has listing in the back of the different facilities. Marleny notes that will be helpful in regards to looking at different facility options for patient. Marleny states that she will start with [facility] and see what help they can provide herwith facilities and then also look at and reach out to facilities admission office to see about cost and openings. Marleny notes that she will let this Sw know about further assistance needs. Tiffani will follow up with patient daughter beginning of next week to see what she has been able to find out for patient. [facility] Chambers [facility] January 14, 2023 7:13pm Note Date/Time January 14, 2023 2:17p m [facility] Medical Records Department [address] [place] [address] Emergency Department Summary 01/14/23 MR#: [id number] Acct: [id number] Name: MARCIA MASCORRO Rep #:[id number] : [id number] 67 From: Juan David Chambers DO PCP: Dr. Gabriel Galvan MD Status:RE G ER Location: ED HPI HPI - GI History of Present Illness Chief Complaint: Abd Pain Narrative Narrative: 67-year-old female presenting with abdominal pain. She states that she has had some right-sided abdominal pain in the right upper quadrant in the right lower quadrant. She describes it as aching. Previously seen in the ER for abdominal pain referred to Dr. Martinez. She does not need to follow-up. She reports todaythat she had some vaginal spotting. She has a history of a total hysterectomy distantly. She states she does not have ovaries or cervix. She not had any vaginal discharge. She states this began when she was at a residential while visiting her family. She states I am afraid I am bleeding internally. She does not have any dizziness lightheadedness, shortness of breath. She denies black or bloody stools. Patient is on Plavix and Xarelto. No fevers, chills. No urinary complaints. [facility] Medical History Anxiety and depression Atherosclerotic heart disease of [place] coronary artery without angina pectoris Calculus of left kidney COPD (chronic obstructive pulmonary disease) Depression Elevated troponin Essential hypertension GERD (gastroesophageal reflux disease) History of non-ST elevation myocardial infarction (NSTEMI) (09/01/21) Hyperlipidemia Ischemic cardiomyopathy Kidney stones Myocardial infarct Obesity (BMI 30.0-34.9) Old anterior wall myocardial infarction Opiate dependence EVELYN (obstructive sleep apnea) Osteoporosis Personal history of transient ischemic attack (TIA), and cerebral infarction without residual deficits Smoker Sustained SVT TIA (transient ischemic attack) Tobacco abuse Home Medications lorazepam 1 mg tablet 1 mg PO BID PRN PRN Anxiety 06/15/21 [History Last Taken Unknown] gabapentin 300 mg capsule 300 mg PO TID nerve pain #90 caps 01/01/22 [Rx Last Taken 08/11/22] amiodarone 200 mg tablet 200 mg PO DAILY 30 days #30 tabs 01/04/23 [Rx Last Taken Unknown] atorvastatin 40 mg tablet (Lipitor) 40 mg PO QHS 30 days #30 tabs 01/04/23 [Rx Last Taken Unknown] carvedilol 6.25 mg tablet 6.25 mg PO BID 30 days #60 tabs 01/04/23 [Rx Last Taken Unknown] clopidogrel 75 mg tablet (Plavix) 75 mg PO DAILY 30 days #30 tabs 01/04/23 [Rx Last Taken Unknown] doxycycline hyclate 100 mg capsule 100 mg PO BID 4 days #9 caps 01/04/23 [Rx Last Taken Unknown] duloxetine 30 mg capsule,delayed release (Cymbalta) 30 mg PO DAILY #30 caps 01/04/23 [Rx Last Taken Unknown] furosemide 20 mg tablet 20 mg PO BIDLX 30 days #60 tabs 01/04/23 [Rx Last Taken Unknown] lisinopril 2.5 mg tablet 2.5 mg PO DAILY 30 days #30 tabs 01/04/23 [Rx Last Taken Unknown] pantoprazole 40 mg tablet,delayed release (Protonix) 40 mg PO BID 30 days #60 tabs 01/04/23 [Rx Last Taken Unknown] rivaroxaban 20 mg tablet See Rx Instructions .Route .COMPLEX 30 days #30 tabs 01/04/23 [Rx Last Taken Unknown] sucralfate 100 mg/mL oral suspension (Carafate) 10 ml PO Q6H 30 days #1,000 mL 01/04/23 [Rx Last Taken Unknown] tiotropium bromide 2.5 mcg/actuation mist for inhalation (Spiriva Respimat) 2 puff inhalation DAILY #4 grams 01/04/23 [Rx Last Taken Unknown] ondansetron 4 mg disintegrating tablet 4 mg PO Q8H PRN PRN Nausea #12 tabs 01/13/23 [Rx Last Taken Unknown] Allergy/AdvReac Type Severity Reaction Status Date / Time No Known Allergies Allergy Verified 01/14/23 13:24 Family History Mother Hypertension CAD (coronary artery disease) CVA (cerebral vascular accident) Myocardial infarction Grandmother Myocardial infarction Surgical History History of hysterectomy History of left heart catheterization (01/20/22) History of total hysterectomy Hx of appendectomy Social History household members: none Smoking Status: Current some day smoker tobacco type: cigarettes alcohol intake: never substance use type: does not use ROS ROS ED Constitutional Constitutional ED: Denies chills, fever(s) or sweats Eyes Eyes: Denies blurry vision or change in vision ENT ENT ED: Denies ear pain or sore throat Cardiovascular Cardiovascular: Denies chest pain, palpitations or racing heartbeat Respiratory/Chest Respiratory/Chest: Denies cough, dyspnea or sputum Gastrointestinal Gastrointestinal: Reports abdominal pain; Denies constipation, diarrhea, nausea or vomiting Genitourinary Genitourinary ED: Reports other Details: Vaginal spotting ; Denies dysuria, hematuria or urinary frequency Musculoskeletal Musculoskeletal: Denies arthralgias, myalgias or neck pain Integumentary Denies abscess, Abrasions or rash Neurologic Neurologic: Denies headache(s), paresthesias or weakness Psychiatric Psychiatric: Denies anxiety, depression, suicidal ideation or suicidal thoughts Endocrine Endocrinology: Denies polydipsia or polyuria EXAM Physical Exam Const Vital Signs: 01/14/23 13:22 01/14/23 16:04 01/14/23 18:27 Temperature 97.8 F Temperature Source Temporal Pulse Rate 90 65 65 Respiratory Rate 16 16 18 Blood Pressure 130/93 H 136/71 H 139/77 H Blood Pressure Mean 105 92 97 Pulse Ox 97 97 98 Oxygen Delivery Method Room Air Room Air Room Air Positive well nourished and obese General Appearance ED: NAD; Negative for pallor Nutritional Appearance: obese HEENT Reports moist mucous membranes normocephalic and atraumatic Eyes PERRL and EOMs intact bilaterally General Eye ED: Negative for pale conjunctiva or scleral icterus Resp normal respiratory effort and clear to auscultation bilaterally Auscultation: Negative for rales, rhonchi or wheezes Cardio regular rate and regular rhythm GI Palpation: tender RLQ and RUQ Back/Spine no CVA tenderness Neuro CN's II-XII intact bilaterally Sensorium / Orientation: alert Motor Exam: strength 5/5 throughout Psych Mood & Affect: anxious and tearful Skin no wounds General Skin Exam: Negative for jaundice or pallor MDM MDM MDM Narrative Medical decision making narrative: Patient presenting with abdominal pain which has been an ongoing issue. She is concerned she has internal bleeding because she had some vaginal spotting today. With the vaginal bleeding we will do a pelvic exam today. CBC to assess white blood cell count, hemoglobin, platelets. CMP to assess liver function, renal function, glucose, anion gap. Lipase to assess for pancreatitis. CT abdomen pelvis will be obtained to see where the pain is. CBC shows normal white blood cell count 8.6, hemoglobin and hematocrit are stable. Alkaline phosphatase somewhat elevated but otherwise LFTs are normal. Renal function electrolytes within normal limits. Glucose is normal. Urinalysis is negative for infection. CT of the abdomen pelvis with IV contrast was obtained and shows density in thegallbladder which may be stones. This also shows a stable aneurysm which has been present previously. Right upper quadrant ultrasound will be obtained. I did offer to do a pelvic exam for the patient to assess for the recent bleeding. She defers this at this time. I stressed at length that she will need to follow-up with gynecology for this. She acknowledges understanding. Right upper quadrant ultrasound came back normal. I think the patient is stable for discharge at this time. Return precautions discussed. Impression: 1. Abdominal pain 2. Vaginal bleeding Lab Data Labs: Laboratory Results - last 24 hr 01/14/23 01/14/23 01/14/23 14:40 14:40 15:50 WBC 8.6 RBC 4.65 Hgb 14.7 Hct 44.8 MCV 96.3 MCH 31.6 MCHC 32.8 RDW Std Deviation 46.0 H RDW Coeff of Sariah 13.1 Plt Count 310 MPV 8.8 Immature Gran % (Auto) 0.300 Neut % (Auto) 58.8 Lymph % (Auto) 29.9 [place] % (Auto) 7.4 Eos % (Auto) 3.0 Baso % (Auto) 0.6 Absolute Neuts (auto) 5.1 Absolute Lymphs (auto) 2.57 Nucleated RBC % 0 Sodium 141 Potassium 4.1 Chloride 105 Carbon Dioxide 29.0 Anion Gap 7 BUN 16 Creatinine 0.94 Estim Creat Clear Calc 52.97 Est GFR (MDRD) Af Amer 76 Est GFR (MDRD) Non-Af 63 BUN/Creatinine Ratio 16.9 Glucose 92 Calcium 9.6 Total Bilirubin 0.50 AST 12 L ALT 15 Alkaline Phosphatase 196 H Total Protein 7.5 Albumin 3.3 Globulin 4.2 Albumin/Globulin Ratio 0.8 L Lipase 27 Urine Color Yellow Urine Clarity Clear Urine pH 6.0 Ur Specific [place] 1.020 Urine Protein 15 H Urine Glucose (UA) Normal Urine Ketones 15 H Urine Occult Blood 25 H Urine Nitrite Negative Urine Bilirubin Negative Urine Urobilinogen 1 H Ur Leukocyte Esterase Negative Urine RBC 0-5 SEEN Urine WBC 0 SEEN Ur Squamous Epith Cells 0 SEEN Urine Bacteria 0 SEEN Urine Mucus 0 SEEN Radiography Diagnostic Testing: Clinical Impression(s) from Imaging Studies Abdomen/Pelvis CT 01/14/23 14:12 IMPRESSION: Intraluminal density within the gallbladder possibly representing polyps or nonshadowing stones.. If concern for gallbladder disease ultrasound recommended Minor diverticular disease of the colon without evidence for acute diverticulitis Multilobulated mid to distal abdominal aortic aneurysm. No evidence for periaortic leak or dissection Electronically Signed: Chucky Sampson MD at 16:18 EDT , Gallbladder Ultrasound 01/14/23 16:21 IMPRESSION: Mildly enlarged liver without discrete space-occupying lesion or dilated intrahepatic ducts. No evidence for gallstones or acute cholecystitis. Common bile duct is mildly distended of uncertain etiology and clinical significance. If clinically warranted as per elevated bilirubin MRI/MRCP would be helpful for further assessment Electronically Signed: Chucky Sampson MD at 17:57 EDT , Discharge Plan Triage Chief Complaint: Abd Pain ED Provider: Juan David Chambers Dx/Rx/DC Orders Instructions: Understanding Uterine Bleeding, ED Abdominal Pain Unkn Cause Fem Prescriptions: No Action lorazepam 1 mg tablet 1 mg PO BID PRN PRN (Reason: Anxiety) Label Comments: take 1 tablet by mouth twice a day if needed gabapentin 300 MG capsule 300 mg PO TID Qty: 90 0RF duloxetine [Cymbalta] 30 mg capsule,delayed release(DR/EC) 30 mg PO DAILY Qty: 30 0RF Spiriva Respimat 2.5 mcg/actuation mist 2 puff inhalation DAILY Qty: 4 0RF atorvastatin [Lipitor] 40 mg tablet 40 mg PO QHS 30 Days Qty: 30 0RF carvedilol 6.25 mg tablet 6.25 mg PO BID 30 Days Qty: 60 0RF amiodarone 200 mg tablet 200 mg PO DAILY 30 Days Qty: 30 0RF sucralfate [Carafate] 100 mg/mL suspension 10 ml PO Q6H 30 Days Qty: 1000 0RF Rx Instructions: x 2 weeks clopidogrel [Plavix] 75 mg tablet 75 mg PO DAILY 30 Days Qty: 30 0RF pantoprazole [Protonix] 40 mg tablet,delayed release (DR/EC) 40 mg PO BID 30 Days Qty: 60 0RF furosemide 20 mg tablet 20 mg PO BIDLX 30 Days Qty: 60 0RF lisinopril 2.5 mg tablet 2.5 mg PO DAILY 30 Days Qty: 30 0RF rivaroxaban 20 mg tablet See Rx Instructions .ROUTE .COMPLEX 30 Days Qty: 30 0RF Dose Instruction: TAKE 1 TABLET BY MOUTH DAILY WITH EVENING MEAL Rx Instructions: TAKE 1 TABLET BY MOUTH DAILY WITH EVENING MEAL doxycycline hyclate 100 mg capsule 100 mg PO BID 4 Days Qty: 9 0RF ondansetron 4 mg tablet,disintegrating 4 mg PO Q8H PRN PRN (Reason: Nausea) Qty: 12 0RF Primary Care Provider: Gabriel Galvan Referrals: Marky Yuan MD [Med Staff - Active Staff] - As soon as possible Gabriel Galvan MD [Primary Care Provider] - Disposition Disposition: Home, Self Care What to do if you have Problems For any increased pain, shortness of breath, bleeding, nausea or vomiting, chestpain, or any unexpected problems, contact your Primary Care Provider. Call [facility] ([phone]) or report to the closest Emergency Room. Call 911 if necessary. 01/14/231912 <Electronically signed by Juan David Chambers DO> Cosigner Signature (if applicable): CC: Dr. Gabriel Galvan MD ~ Signed [facility] Work Phone: [phone]) 433-719405-09-2023 Instructions* Patient Instructions* Lyndsey Acevedo APRN.CNS - 01/13/2023 3:05 PM EDT Please take your medications as ordered. These have been sent to [facility] for you today Be sure to increase your pantoprazole from once a day to twice a day. Add sucralfate before meals and at bedtime for now until gone. Please make an appointment with the following providers: [facility] [phone] 2- Dr Martinez test cell technician 3-Dr Don Dias -powder room attendant 4- Vascular doctor [facility] History of Present illness Narrative* Lyndsey Acevedo APRN.CNS - 01/13/2023 2:20 PM EDT Transitional Care Management Progress Note The patients TCM visit was performed within the 14 days of discharge. Patient's Date of discharge: 01/04/2023 Date of initial coordinator contact after discharge:01/05/2023 Discharge diagnosis: shortness of breath Medication review completed Yes Lyndsey Acevedo APRN.CNS Provider Documentation: In follow-up of hospitalization, Marcia Mascorro is a 67 year old female with the chief complaint of shortness of breath. I have reviewed the patient s last hospital course including diagnostic testing performed during this hospitalization, their discharge medications, and my assessment and plan with the patient and anyfamily members present at today s visit. HPI: History of present illness excerpted from previous visit with me : Has had gastroenterology and express care visits. See yesterday phone encounter EPIC. Missed appointment, referred to ER for severe symptoms, rescheduled to today if not severe. No prior IM visits. Cardiology: [facility] João Marva [employer]. Presents today for emergency department follow-up visit. [facility] [...] generalized weakness and anxiety. [facility] Leatha Zimmer, Dustin Chopra Today reports epigastric pain and [...] has had remote EGD, colonoscopy. CC EGD 2016 showed Nemesio Grade III reflux [...] for admission. Cardiac consult was placed. She wascontinued on home Xarelto. Noted to be poor [...] with mild gastritis and possible history of Retana's esophagus. Not compliant with this medication recently [...] Gastroenterology follow-up: Has not scheduled Follow-up with humanities and languages professor. Has not scheduled Follow-up with powder room attendant. Has not scheduled PAST MEDICAL HISTORY: Reviewed [...] complication, without long-term current use of insulin ([facility]) - ICD9: 250.80, ICD10: E11.69 4. Cardiomyopathy in disease classified elsewhere ([facility]) - ICD9: 425.8, ICD10: I43 5. Supraventricular tachycardia ([facility]) - ICD9: 427.89, ICD10: I47.1 6. Acute exacerbation of chronic obstructive pulmonary disease (COPD) ([facility]) - ICD9: 491.21, ICD10: J44.1 7. LV (left ventricular) mural thrombus - ICD9: 410.90, ICD10: I51.3 8. Chest pain, unspecified type - ICD9: 786.50, ICD10: R07.9 9. NSTEMI (non-ST elevated myocardial infarction) ([facility]) - ICD9: 410.70, ICD10: I21.4 10. HFrEF (heart failure with reduced ejection fraction) ([facility]) - ICD9: 428.20, ICD10: I50.20 11. Gastroesophageal reflux disease, unspecified whether esophagitis present - ICD9: 530.81, ICD10:K21.9 She was continued on treatments unchanged from discharge. Not certain that she is increased her PPIfrom daily to twice daily. Refill sent to pharmacy. She has made no appointments since discharge, in need of cardiology pulmonology and gastroenterology. She was noted to have an LV thrombus, she was continued on Xarelto and Plavix. She needs to be followed up with [facility] cardiology and have follow up echocardiogram regarding her thrombus. Continues with epigastric pain, will continue with PPI twice daily as prescribed at discharge and add Carafate for now. Needs to schedule appointment with Dr. Martinez. COPD exacerbation, recommend follow-up with powder room attendant. 3 mo.fu Lyndsey Acevedo APRN.CNS or Nora Crespo CNP. 6 mo follow up Gabriel Galvan MD. Lyndsey Acevedo APRN.CNS January 13, 2023 8:01 AM [facility] Aguilera [facility] January 10, 2023 3:56pm Note Date/Time January 10, 2023 1:17pm [facility] Medical Records Department [address] [place] [address] Emergency Department Summary 01/10/23 MR#: [id number] Acct: [id number] Name: MARCIA MASCORRO Rep #:[id number] : [id number] 67 From: Danny AVILEZ PCP: Dr. Gabriel Galvan MD Status:DE P ER Location: ED HPI <FATMATA Marie - Last Filed: 01/10/23 15:44> History of Present Illness Chief Complaint: Chest Pain Narrative Narrative: Patient is a 67-year-old female with history of COPD, tobacco use, lipidemia essential hypertension, ischemic cardiomyopathy presents to the emergency department left-sided chest pain, left-sided shoulder pain. Patient states thatthis started this morning when she woke up, she states constant, nothing makes it worse or better. Patient is concerned because she was just recently admittedto the hospital on January 02, 2023, she did have elevated troponins. Her last troponin on January 03, 2023 was 402. At that time, I did read the patient's admission note, the patient presented more short of breath. Patient still does use tobacco. Patient improved greatly over the couple days she was admitted. Patient states has been doing well, she is been more compliant with her medications and this includes her Xarelto, Cymbalta, her COPD medications. Patient states today that she told her son that she was having some left-sided chest pain, left back pain, and they wanted her to come here to be evaluated. [facility] <FATMATA Marie - Last Filed: 01/10/23 15:44> [facility] Medical History Anxiety and depression Atherosclerotic heart disease of [place] coronary artery without angina pectoris Calculus of left kidney COPD (chronic obstructive pulmonary disease) Depression Essential hypertension GERD (gastroesophageal reflux disease) History of non-ST elevation myocardial infarction (NSTEMI) (09/01/21) Hyperlipidemia Ischemic cardiomyopathy Kidney stones Myocardial infarct Obesity (BMI 30.0-34.9) Old anterior wall myocardial infarction Opiate dependence EVELYN (obstructive sleep apnea) Osteoporosis Personal history of transient ischemic attack (TIA), and cerebral infarction without residual deficits Smoker Sustained SVT TIA (transient ischemic attack) Tobacco abuse Home Medications lorazepam 1 mg tablet 1 mg PO BID PRN PRN Anxiety 06/15/21 [History Last Taken Unknown] gabapentin 300 mg capsule 300 mg PO TID nerve pain #90 caps 01/01/22 [Rx Last Taken 08/11/22] ondansetron 4 mg disintegrating tablet 4 mg PO Q8H PRN nausea and vomiting #10 tabs 08/16/22 [Rx Last Taken Unknown] nicotine 10 mg/mL nasal spray 1 spray intranasal DAILY #40 mL 09/19/22 [Rx Last Taken Unknown] amiodarone 200 mg tablet 200 mg PO DAILY 30 days #30 tabs 01/04/23 [Rx Last Taken Unknown] atorvastatin 40 mg tablet (Lipitor) 40 mg PO QHS 30 days #30 tabs 01/04/23 [Rx Last Taken Unknown] carvedilol 6.25 mg tablet 6.25 mg PO BID 30 days #60 tabs 01/04/23 [Rx Last Taken Unknown] clopidogrel 75 mg tablet (Plavix) 75 mg PO DAILY 30 days #30 tabs 01/04/23 [Rx Last Taken Unknown] doxycycline hyclate 100 mg capsule 100 mg PO BID 4 days #9 caps 01/04/23 [Rx Last Taken Unknown] duloxetine 30 mg capsule,delayed release (Cymbalta) 30 mg PO DAILY #30 caps 01/04/23 [Rx Last Taken Unknown] furosemide 20 mg tablet 20 mg PO BIDLX 30 days #60 tabs 01/04/23 [Rx Last Taken Unknown] lisinopril 2.5 mg tablet 2.5 mg PO DAILY 30 days #30 tabs 01/04/23 [Rx Last Taken Unknown] pantoprazole 40 mg tablet,delayed release (Protonix) 40 mg PO BID 30 days #60 tabs 01/04/23 [Rx Last Taken Unknown] prednisone 20 mg tablet 40 mg PO DAILY 4 days #8 tabs 01/04/23 [Rx Last Taken Unknown] rivaroxaban 20 mg tablet See Rx Instructions .Route .COMPLEX 30 days #30 tabs 01/04/23 [Rx Last Taken Unknown] sucralfate 100 mg/mL oral suspension (Carafate) 10 ml PO Q6H 30 days #1,000 mL 01/04/23 [Rx Last Taken Unknown] tiotropium bromide 2.5 mcg/actuation mist for inhalation (Spiriva Respimat) 2 puff inhalation DAILY #4 grams 01/04/23 [Rx Last Taken Unknown] Allergy/AdvReac Type Severity Reaction Status Date / Time No Known Allergies Allergy Verified 01/10/23 13:08 Family History Mother Hypertension CAD (coronary artery disease) CVA (cerebral vascular accident) Myocardial infarction Grandmother Myocardial infarction Surgical History History of hysterectomy History of left heart catheterization (01/20/22) History of total hysterectomy Hx of appendectomy Social History household members: none Smoking Status: Current some day smoker tobacco type: cigarettes alcohol intake: never substance use type: does not use ROS <FATMATA Marie - Last Filed: 01/10/23 15:44> ROS ED ROS Narrative Constitutional: Negative for fever, chills, weight loss, weakness Eyes: Negative for vision loss, vision change, double vision ENT: Negative for any sore throat, ear pain, congestion Cardiovascular: Negative for any tightness, palpitations. Positive for left- sided chest pain Respiratory: Negative for any cough, sputum production, hemoptysis, dyspnea, dyspnea on exertion, orthopnea Gastrointestinal: Negative for any abdominal pain, nausea, vomiting, diarrhea, constipation, blood in stool, blood in vomit : Negative for any urinary frequency, dysuria, retention, blood in urine Muscle skeletal: Negative for any muscle joint pain, stiffness, myalgias, arthralgias, neck pain. Positive for left back pain Neurological: Negative for any headache, syncope, numbness or tingling, dizziness Skin: Negative for any rashes, lumps, itching, abrasions, lacerations Psychiatric: Negative for any depression, anxiety, stress, suicidal ideation, homicidal ideation Hematologic: Negative for any easy bruising, excessive bruising, easy bleeding Allergies: Negative for any eczema, hives, rash EXAM <FATMATA Marie - Last Filed: 01/10/23 15:44> Physical Exam Narrative Exam Narrative: Vital signs reviewed. Patient appears generally well. Patient's vital signs are stable. HEET: Head normocephalic atraumatic, TMs clear bilaterally. Posterior pharynx is clear, moist mucous membranes. Nares clear bilaterally. Neck: Supple with no lymphadenopathy or tenderness. No signs of meningismus, negative jolt sign. Cardiac: Regular rate and rhythm no murmurs gallops or rubs, equal peripheral pulses bilaterally. Respiratory: Slight expiratory wheeze to the right lower lobe, however mostly clear.. No chest tenderness. Abdomen: Soft, nontender, nondistended. No abdominal bruit or pulsatile masses. No hepatosplenomegaly Extremities: No peripheral edema, no signs of gross trauma or deformity. Activefull range of motion of all extremities. Neuro: Cranial nerves II through XII intact, no focal neurological deficits. Skin: Clean dry and intact with no rash, purpura, petechiae, vesicles or pustules. Backs/flank: No CVA tenderness, no midline spinal tenderness, no deformity. Patient does have left shoulder blade tenderness on palpation, this hurts worse more with movement. Psych: Normal mood and affect. No SI, HI or acute psychosis. Const Vital Signs: 01/10/23 13:04 01/10/23 13:11 01/10/23 13:14 Temperature 97.4 F L Temperature Source Temporal Pulse Rate 115 H 97 Respiratory Rate 18 24 H Respiratory Effort Normal Non-Labored Blood Pressure 147/89 H 138/90 H Blood Pressure Mean 108 106 Pulse Ox 98 98 Oxygen Delivery Method Room Air Room Air 01/10/23 13:18 01/10/23 15:48 Temperature Temperature Source Pulse Rate 76 Respiratory Rate 19 H Respiratory Effort Blood Pressure 110/69 Blood Pressure Mean Pulse Ox 96 Oxygen Delivery Method Room Air Positive well nourished and well developed General Appearance ED: well developed <Dr. Adryan Aguilera DO - Last Filed: 01/10/23 15:56> Physical Exam Const Vital Signs: 01/10/23 13:04 01/10/23 13:11 01/10/23 13:14 Temperature 97.4 F L Temperature Source Temporal Pulse Rate 115 H 97 Respiratory Rate 18 24 H Respiratory Effort Normal Non-Labored Blood Pressure 147/89 H 138/90 H Blood Pressure Mean 108 106 Pulse Ox 98 98 Oxygen Delivery Method Room Air Room Air 01/10/23 13:18 01/10/23 15:48 Temperature Temperature Source Pulse Rate 76 Respiratory Rate 19 H Respiratory Effort Blood Pressure 110/69 Blood Pressure Mean Pulse Ox 96 Oxygen Delivery Method Room Air MDM <FATMATA Marie - Last Filed: 01/10/23 15:44> MDM Lab Data Labs: Laboratory Results - last 24 hr 01/10/23 01/10/23 01/10/23 13:15 13:15 13:15 WBC 12.9 H RBC 4.85 Hgb 15.3 H Hct 46.7 MCV 96.3 MCH 31.5 MCHC 32.8 RDW Std Deviation 45.3 H RDW Coeff of Sariah 12.9 Plt Count 360 MPV 8.6 Immature Gran % (Auto) 0.700 Neut % (Auto) 59.7 Lymph % (Auto) 29.8 [place] % (Auto) 6.4 Eos % (Auto) 3.0 Baso % (Auto) 0.4 Absolute Neuts (auto) 7.7 Absolute Lymphs (auto) 3.85 Nucleated RBC % 0 PT 17.3 H INR 1.4 Sodium 139 Potassium 3.8 Chloride 102 Carbon Dioxide 30.0 Anion Gap 7 BUN 21 H Creatinine 0.98 Estim Creat Clear Calc 50.81 Est GFR (MDRD) Af Amer 73 Est GFR (MDRD) Non-Af 60 BUN/Creatinine Ratio 21.3 H Glucose 99 Calcium 9.7 Troponin I High Sens 70 H B-Natriuretic Peptide 01/10/23 01/10/23 13:15 15:04 WBC RBC Hgb Hct MCV MCH MCHC RDW Std Deviation RDW Coeff of Sariah Plt Count MPV Immature Gran % (Auto) Neut % (Auto) Lymph % (Auto) [place] % (Auto) Eos % (Auto) Baso % (Auto) Absolute Neuts (auto) Absolute Lymphs (auto) Nucleated RBC % PT INR Sodium Potassium Chloride Carbon Dioxide Anion Gap BUN Creatinine Estim Creat Clear Calc Est GFR (MDRD) Af Amer Est GFR (MDRD) Non-Af BUN/Creatinine Ratio Glucose Calcium Troponin I High Sens 61 H B-Natriuretic Peptide 378.6 H Radiography Diagnostic Testing: Clinical Impression(s) from Imaging Studies Chest X-Ray 01/10/23 13:13 IMPRESSION: Cardiomegaly. Electronically Signed: Hue Lakhani MD at 14:00 EDT , EKG Normal sinus rhythm, rate of 93 bpm, : Attestation: I personally reviewed and interpreted this EKG as follows: Comments: Normal sinus rhythm, rate of 93 bpm, CO 124 ms, QRS duration 86 ms, no acute ST elevation, no acute infarct noted Treatment and Re-Evaluation :: All radiologic examinations were read, reviewed by the emergency department attending. From these reads, a plan of care will be put in place. Patient appears generally well, patient appears nontoxic, vital signs are stable. Patient presents to the emergency department with complaints of left-sided chest pain that radiates to her back. She was recently admitted for NSTEMI, she has been doing well at home, she has been more competent taking her medications. Differential included ACS, [place], pneumonia. Patient did receive a full cardiac work-up. Chest x-ray showed cardiomegaly no other acute abnormality. Laboratory values showed a slight elevation in white count at 12.9however this is trending down since 01/03/2023 when she was admitted. Patient's chemistries show an elevated BUN at 21 however this is improved from 01/04 at 34. Patient's troponin initially was 70, this is elevated however this is markedly improved from the patient's troponin on 01/02/2023 at 402. proBNP is elevated 378.6. Repeat troponin will be drawn. Patient was given 4 mg of morphine for discomfort. On reassessment, the patient was feeling better. At this time, EKGwas unremarkable, patient did have a full cardiac work-up 1 week ago. At this time, the patient's troponin continues to trend down, I do believe the patient will be stable for discharge. She can follow-up outpatient. There is no evidence to suspect any ACS, TX. Patient showing no difficulty breathing, no evidence of any CHF exacerbation. Repeat troponin was 61, she is trending down. There is no evidence of any ongoing cardiopulmonary pathology at this time. Patient needs to continue to follow-up with her humanities and languages professor, as well as her other doctors. She needs to continue to take her Xarelto as well as her other medications. She is verbally understanding. All questions answered, patient stable for discharge <Dr. Adryan Aguilera, DO - Last Filed: 01/10/23 15:56> [facility] Narrative Medical decision making narrative: I have personally performed a face to face assessment of the patient and have reviewed the SINTIA Note. I performed a substantive portion of the visit including all aspects of the following. My xiong findings include: History: Patient presents with chest pain that began this morning. Patient states she felt like her heart was beating fast. Patient states it is mainly over the left side of her chest. Patient denies any radiation of the pain. Patient states nothing made it better nothing made it worse. Patient denies anyfevers or chills. Patient denies any shortness of breath or cough. Patient denies any diaphoresis. Exam: Vital signs are stable. Patient is afebrile. Patient is in no acute distress. Oral mucosa is pink and moist. Neck is supple. Trachea is midline. There is no JVD. Heart was regular rate and rhythm. Lungs are clear and equal bilaterally. Abdomen is soft. Bowel sounds are normal. There is no tenderness. Cranial nerves II through XII are intact. There are no focal motoror sensory deficits noted. Medical Decision Making: Differential diagnosis includes cardiac dysrhythmia, cardiac ischemia, pneumonia, pneumothorax, electrolyte abnormality, congestive heart failure, anxiety, and musculoskeletal pain. EKG will be obtained to assess for cardiac dysrhythmia and cardiac ischemia. Chest x-ray will be obtained to assess for pneumonia and pneumothorax. CBC will be obtained to assess for leukocytosis and anemia. Basic metabolic profile will be obtained toassess for electrolyte abnormality and renal function. High-sensitivity troponin will be obtained to assess for cardiac ischemia. PT with INR will be obtained to assess for coagulopathy. BNP will be obtained to assess for congestive heart failure. EKG was obtained. On my independent interpretation, it shows normal sinus rhythm with a rate of 93. There are nonspecific ST-T wave changes. This was unchanged compared to previous EKG dated 01/02/2023. Portable 1 view chest x-raywas obtained. On my independent interpretation, lung flores are clear. There is cardiomegaly noted. Bony thorax is normal. There is no acute process noted. Radiologist also interpreted the x-ray and agrees. CBC was reviewed. There [place] mild leukocytosis of 12.9. Hemoglobin was stable at 15.3 and hematocrit was 46.7. Platelets were normal. PT with INR was reviewed. Pro time was 17.3 and INR is 1.4. Basic metabolic profile was reviewed and was essentially within normal limits. High-sensitivity troponin was reviewed and was 70. This is improved compared to previous results. BNP was reviewed and was elevated at 378.6. This is stable compared to previous results. 2-hour repeat troponin is normal at 61. Patient was advised of her findings. Patient was instructed to follow-up with her primary care physician in 5 to 7 days. Patient understood and was agreeable with the plan. All questions were answered. Lab Data Labs: Laboratory Results - last 24 hr 01/10/23 01/10/23 01/10/23 13:15 13:15 13:15 WBC 12.9 H RBC 4.85 Hgb 15.3 H Hct 46.7 MCV 96.3 MCH 31.5 MCHC 32.8 RDW Std Deviation 45.3 H RDW Coeff of Sariah 12.9 Plt Count 360 MPV 8.6 Immature Gran % (Auto) 0.700 Neut % (Auto) 59.7 Lymph % (Auto) 29.8 [place] % (Auto) 6.4 Eos % (Auto) 3.0 Baso % (Auto) 0.4 Absolute Neuts (auto) 7.7 Absolute Lymphs (auto) 3.85 Nucleated RBC % 0 PT 17.3 H INR 1.4 Sodium 139 Potassium 3.8 Chloride 102 Carbon Dioxide 30.0 Anion Gap 7 BUN 21 H Creatinine 0.98 Estim Creat Clear Calc 50.81 Est GFR (MDRD) Af Amer 73 Est GFR (MDRD) Non-Af 60 BUN/Creatinine Ratio 21.3 H Glucose 99 Calcium 9.7 Troponin I High Sens 70 H B-Natriuretic Peptide 01/10/23 01/10/23 13:15 15:04 WBC RBC Hgb Hct MCV MCH MCHC RDW Std Deviation RDW Coeff of Sariah Plt Count MPV Immature Gran % (Auto) Neut % (Auto) Lymph % (Auto) [place] % (Auto) Eos % (Auto) Baso % (Auto) Absolute Neuts (auto) Absolute Lymphs (auto) Nucleated RBC % PT INR Sodium Potassium Chloride Carbon Dioxide Anion Gap BUN Creatinine Estim Creat Clear Calc Est GFR (MDRD) Af Amer Est GFR (MDRD) Non-Af BUN/Creatinine Ratio Glucose Calcium Troponin I High Sens 61 H B-Natriuretic Peptide 378.6 H Radiography Diagnostic Testing: Clinical Impression(s) from Imaging Studies Chest X-Ray 01/10/23 13:13 IMPRESSION: Cardiomegaly. Electronically Signed: Hue Lakhani MD at 14:00 EDT , Discharge Plan Triage Chief Complaint: Chest Pain ED Midlevel Provider: Danny Olivo ED Provider: Adryan Aguilera Dx/Rx/DC Orders Clinical Impression: Chest pain Instructions: ED Chest Pain, Uncertain Cause Prescriptions: No Action lorazepam 1 mg tablet 1 mg PO BID PRN PRN (Reason: Anxiety) Label Comments: take 1 tablet by mouth twice a day if needed gabapentin 300 MG capsule 300 mg PO TID Qty: 90 0RF prednisone 20 mg Tablet 40 mg PO DAILY 4 Days Qty: 8 0RF duloxetine [Cymbalta] 30 mg capsule,delayed release(DR/EC) 30 mg PO DAILY Qty: 30 0RF Spiriva Respimat 2.5 mcg/actuation mist 2 puff inhalation DAILY Qty: 4 0RF atorvastatin [Lipitor] 40 mg tablet 40 mg PO QHS 30 Days Qty: 30 0RF carvedilol 6.25 mg tablet 6.25 mg PO BID 30 Days Qty: 60 0RF amiodarone 200 mg tablet 200 mg PO DAILY 30 Days Qty: 30 0RF sucralfate [Carafate] 100 mg/mL suspension 10 ml PO Q6H 30 Days Qty: 1000 0RF Rx Instructions: x 2 weeks clopidogrel [Plavix] 75 mg tablet 75 mg PO DAILY 30 Days Qty: 30 0RF pantoprazole [Protonix] 40 mg tablet,delayed release (DR/EC) 40 mg PO BID 30 Days Qty: 60 0RF furosemide 20 mg tablet 20 mg PO BIDLX 30 Days Qty: 60 0RF lisinopril 2.5 mg tablet 2.5 mg PO DAILY 30 Days Qty: 30 0RF rivaroxaban 20 mg tablet See Rx Instructions .ROUTE .COMPLEX 30 Days Qty: 30 0RF Dose Instruction: TAKE 1 TABLET BY MOUTH DAILY WITH EVENING MEAL Rx Instructions: TAKE 1 TABLET BY MOUTH DAILY WITH EVENING MEAL doxycycline hyclate 100 mg capsule 100 mg PO BID 4 Days Qty: 9 0RF ondansetron 4 mg tablet,disintegrating 4 mg PO Q8H PRN (Reason: nausea and vomiting) Qty: 10 0RF nicotine 10 mg/mL spray,non-aerosol 1 spray intranasal DAILY Qty: 40 6RF Rx Instructions: administer into each nostril Primary Care Provider: Gabriel Galvan Referrals: Gabriel Galvan MD [Primary Care Provider] - Activity Restrictions/Additional Instructions: Keep taking all of your home medicine Disposition Disposition: Home, Self Care What to do if you have Problems For any increased pain, shortness of breath, bleeding, nausea or vomiting, chestpain, or any unexpected problems, contact your Primary Care Provider. Call [facility] ([phone]) or report to the closest Emergency Room. Call 911 if necessary. 01/10/23 1544 <Electronically signed by Danny AVILEZ> Cosigner Signature (if applicable): 01/10/23 1556 <Electronically signed by Adryan Aguilera DO> CC: Dr. Gabriel Galvan MD ~ Signed [facility] Work Phone: 1(407) 893-157005-01-2023 Miscellaneous Notes* Telephone Encounter - Lyndsey Acevedo APRN.ALMOND ROASTER - 01/05/2023 12:38 PM EDT Benzonatate sent * Telephone Encounter - Danna Centeno LPN - 01/05/2023 10:08 AM EDT Spoke with pt and she was released from the hospital yesterday 12-25-22. She is requesting somethingfor cough. They did not give her anything was she was released. Her Hospital FU is not until 01-08-23with Lyndsey Acevedo. Please advise pt. Danna Centeno LPN [facility] History of Present illness Narrative* Danna Centeno LPN - 01/05/2023 10:00 AM EDT TRANSITION CARE MANAGEMENT (TCM) INITIAL CONTACT Grades 1 Thru 6 Visiting Teacher Outreach Provider Action/FYI: Spoke with pt. Pt [...] might be hidden SUMMARY: -Pt discharged from [facility] on 01/04/23. -Admitted for: Shortness of breath Do you have a hospital follow up appointment with your PCP? Appointment on 01-08-23 with Annamarie Lopez TRAINING MANAGER. No. Assist patient with follow-up appointment within [...] home? Yes Medical records from recent hospitalization: [facility] records have been copied and will deliver to nurse documented [facility] Serrano [facility] January 02, 2023 12:39pm Note Date/Time January 02, 2023 10: 22am [facility] Medical Records Department [address] [place] [address] Emergency Department Summary 01/02/23 MR#: [id number] Acct: [id number] Name: MARCIA MASCORRO Rep #:[id number] : 1955 67 From: Clyde Serrano MD PCP: Care Physician,No Primary Status :REG ER Location: ED HPI History of Present Illness Chief Complaint: Shortness of Breath Detail of Chief Complaint: Increasing shortness of breath over the past several days Informant: patient and family Onset/Context/Timing Onset: Days Context: gradual Timing: Continuous Quality: Positive for Dyspnea on exertion and Wheezing; Negative for Orthopnea or PND Current Severity: Moderate Maximum Severity: Severe Worsened by: Exertion and Coughing Relieved by: Nothing Associated Symptoms cough, fever and subjective; Negative for rhinorrhea, post nasal drip, ear pain,sore throat, chills, sweats, clear sputum, white sputum, yellow sputum or green sputum Chest Pain: Positive for Continuous (Left subclavicular region) and - (Pain) Narrative Narrative: Patient is a 67-year-old woman with history of atherosclerotic heart disease, ischemic cardiomyopathy, essential hypertension, hyperlipidemia, COPD and peripheral arterial disease who presents with increased shortness of breath. She received a DuoNeb in route. She states she has not been on prednisone in the last 3 to 6 months. She states she only smokes occasionally. Son who was in the room corrected her and acknowledged that she smokes 1 to 2 packs/day. She reports history of DVT. There is no record of DVT. Will review prior records determined this was a superficial clot and not a deep venous clot. Patient complains of subjective fever. She denies headache, visual, ocular auditory symptoms. She denies rhinorrhea, congestion postnasal drainage or sorethroat. The pain that is located left subclavicular area/left shoulder does have a musculoskeletal reproducible component. She denies history of PE or pneumothorax. She denies leg pain, swelling or discoloration. She denies abdominal pain, black stool, maroon stool or any change in her bowels. She does have neuropathy which is presumed to be due to [id number] these. She does not have history of diabetes. She is presently on gabapentin. PE Risk Factors: Negative for Cancer, OCP + Smoking + > 35 or Recent immobilization Prior similar symptoms: Yes Recent Illness/Hospitalization: Yes PFSH PFS Medical History Anxiety and depression Atherosclerotic heart disease of [place] coronary artery without angina pectoris Calculus of left kidney COPD (chronic obstructive pulmonary disease) Depression Essential hypertension GERD (gastroesophageal reflux disease) History of non-ST elevation myocardial infarction (NSTEMI) (09/01/21) Hyperlipidemia Ischemic cardiomyopathy Kidney stones Myocardial infarct Obesity (BMI 30.0-34.9) Old anterior wall myocardial infarction Opiate dependence EVELYN (obstructive sleep apnea) Osteoporosis Personal history of transient ischemic attack (TIA), and cerebral infarction without residual deficits Smoker Sustained SVT TIA (transient ischemic attack) Tobacco abuse Home Medications lorazepam 1 mg tablet 1 mg PO BID PRN PRN Anxiety 06/15/21 [History Last Taken Unknown] gabapentin 300 mg capsule 300 mg PO TID nerve pain #90 caps 01/01/22 [Rx Last Taken 08/11/22] amiodarone 200 mg tablet 200 mg PO 0800,1999 #180 tabs 06/04/22 [Rx Last Taken Unknown] atorvastatin 40 mg tablet (Lipitor) 40 mg PO QHS #90 tabs 06/04/22 [Rx Last Taken Unknown] furosemide 20 mg tablet 20 mg PO BIDLX #180 tabs 06/04/22 [Rx Last Taken Unknown] lisinopril 2.5 mg tablet 2.5 mg PO BID #180 tabs 06/04/22 [Rx Last Taken 08/11/22] paroxetine HCl 20 mg tablet 20 mg PO DAILY 06/09/22 [History Last Taken Unknown] clopidogrel 75 mg tablet (Plavix) 75 mg PO DAILY #30 tabs 08/04/22 [Rx Last Taken Unknown] pantoprazole 40 mg tablet,delayed release (Protonix) 40 mg PO DAILY #30 tabs 08/08/22 [Rx Last Taken Unknown] ondansetron 4 mg disintegrating tablet 4 mg PO Q8H PRN nausea and vomiting #10 tabs 08/16/22 [Rx Last Taken Unknown] sucralfate 100 mg/mL oral suspension (Carafate) 10 ml PO Q6H #1,000 mL 08/30/22 [Rx Last Taken Unknown] rivaroxaban 20 mg tablet (Xarelto) See Rx Instructions .Route .COMPLEX #30 tabs 09/17/22 [Rx Last Taken Unknown] nicotine 10 mg/mL nasal spray 1 spray intranasal DAILY #40 mL 09/19/22 [Rx Last Taken Unknown] carvedilol 6.25 mg tablet 6.25 mg PO BID #60 tabs 12/05/22 [Rx Last Taken Unknown] Allergy/AdvReac Type Severity Reaction Status Date / Time No Known Allergies Allergy Verified 01/02/23 09:21 Family History Mother Hypertension CAD (coronary artery disease) CVA (cerebral vascular accident) Myocardial infarction Grandmother Myocardial infarction Surgical History History of hysterectomy History of left heart catheterization (01/20/22) History of total hysterectomy Hx of appendectomy Social History household members: none Smoking Status: Former smoker alcohol intake: never substance use type: does not use ROS ROS ED Constitutional Constitutional ED: Reports fever(s); Denies chills, sweats or weight loss Eyes Eyes: Denies blurry vision, change in vision or diplopia ENT ENT ED: Denies ear pain, rhinorrhea or sore throat Cardiovascular Cardiovascular: Reports chest pain; Denies orthopnea, palpitations, paroxysmal nocturnal dyspnea or racing heartbeat Respiratory/Chest Respiratory/Chest: Reports cough, dyspnea, dyspnea on exertion and other Details: Patient reports that she was able to walk 20 feet 2 months ago without becoming short of breath. Now she is only able to walk 10 feet. ; Denies orthopnea or paroxysmal nocturnal dyspnea Gastrointestinal Gastrointestinal: Denies abdominal pain, constipation, diarrhea, melena, nausea or vomiting Genitourinary Genitourinary ED: Denies dysuria, hematuria or urinary frequency Musculoskeletal Musculoskeletal: Denies arthralgias, back pain, myalgias or neck pain Integumentary Denies rash Neurologic Neurologic: Denies headache(s), paresthesias or weakness Psychiatric Psychiatric: Reports anxiety Endocrine Endocrinology: Denies cold intolerance or heat intolerance Hematologic/Lymphatic Hematologic/Lymphatic: Denies easy bleeding or easy bruising EXAM Physical Exam Const Vital Signs: 01/02/23 09:22 01/02/23 09:27 01/02/23 10:14 Temperature 97.7 F L Temperature Source Temporal Pulse Rate 82 81 Respiratory Rate 31 H 30 H Respiratory Effort Short of Breath Respiratory Depth Normal Respiratory Pattern Tachypnea Blood Pressure 142/89 H Blood Pressure Mean 106 Pulse Ox 96 Oxygen Delivery Method Room Air Room Air 01/02/23 10:29 01/02/23 11:48 01/02/23 11:48 Temperature 97.7 F L Temperature Source Temporal Pulse Rate 77 78 78 Respiratory Rate 38 H 26 H Respiratory Effort Respiratory Depth Respiratory Pattern Blood Pressure 152/89 H 151/108 H 151/108 H Blood Pressure Mean 110 122 Pulse Ox 94 95 Oxygen Delivery Method Room Air Room Air 01/02/23 11:54 Temperature Temperature Source Pulse Rate 84 Respiratory Rate Respiratory Effort Respiratory Depth Respiratory Pattern Blood Pressure 136/97 H Blood Pressure Mean Pulse Ox Oxygen Delivery Method Positive well nourished and well developed General Appearance ED: well developed; Negative for NAD or pallor HEENT Reports dry mucous membranes HEENT Narrative: Head is normocephalic. Ears normal. TMs normal. Nares patent without drainage. Posterior pharynx is normal. atraumatic Mouth ED: Yes dry mucous membranes Mouth: dry mucous membranes Eyes PERRL and EOMs intact bilaterally General Eye ED: Negative for pale conjunctiva or scleral icterus Neck no lymphadenopathy, supple, no meningeal signs and no JVD Chest Wall Chest Narrative: No chest wall abnormality. She does have reproducible pain on the left. Resp No normal respiratory effort and No clear to auscultation bilaterally Auscultation: wheezes expiratory wheezes, scattered wheezes and throughout Cardio regular rate, regular rhythm, S1 normal heart sound and S2 normal heart sound GI non-tender, non-distended and no masses Auscultation: normoactive bowel sounds Palpation: soft Back/Spine no CVA tenderness and normal to inspection Extremity normal to inspection General Extremety ED: Negative for edema or tenderness General Extremity: Negative for edema Neuro oriented x3, CN's II-XII intact bilaterally and no sensory deficits noted [place] Coma Scale: document GCS findings Spontaneous Obeys Commands Oriented 15 Sensorium / Orientation: alert Psych mental status grossly normal Skin no wounds and skin turgor normal General Skin Exam: Negative for jaundice or pallor MDM MDM MDM Narrative Medical decision making narrative: Patient presents with increasing shortness of breath. Patient has audible wheezes. Need to evaluate for pneumothorax, pneumonia, COPD exacerbation. Withher left- sided chest pain will obtain EKG. History is not consistent or suggestive of cardiac disease. We will treat with opiate analgesic orally for her discomfort. NSAIDs are contraindicated since she is on anticoagulant. Patient received 60 mg of Solu-Medrol IV push and 3 albuterol treatments. She received a DuoNeb in route by paramedics. Patient reports no improvement with nitroglycerin. Patient was given aspirin. History & Record Review Discussion w/independent historian: Family Additional record(s) reviewed:: Prior outpatient record (Patient was diagnosed with DVT and is on anticoagulant, Xarelto.), Prior ED visit and Prior labs Lab Data Attestation: I reviewed the patient's lab results. Lab results narrative: Basic metabolic panel is unremarkable. Troponin is 613. Even the patient has atypical left-sided shoulder/chest pain this may represent cardiac ischemia. Wewill treat with aspirin and contact humanities and languages professor regarding antithrombotic and anticoagulant therapy. Review of records indicates she is on Plavix. Will confirm if she is taking herPlavix Labs: Laboratory Results - last 24 hr 01/02/23 09:30 Sodium 140 Potassium 4.3 Chloride 109 H Carbon Dioxide 31.0 Anion Gap 0 L BUN 26 H Creatinine 0.84 Estim Creat Clear Calc 61.67 Est GFR (MDRD) Af Amer 87 Est GFR (MDRD) Non-Af 72 BUN/Creatinine Ratio 31.0 H Glucose 99 Calcium 9.6 Troponin I High Sens 613 H* Radiography Chest X-Ray - ED: 1 View and Read by ED Physician (There are chronic changes noted. There is no evidence of pneumothorax or effusion. There is no infiltrate. Cardiac silhouette size unremarkable. There is evidence of hyperaeration. Osseous trucks unremarkable.) Diagnostic Testing: Clinical Impression(s) from Imaging Studies Chest X-Ray 01/02/23 09:57 IMPRESSION: Hyperinflation. No acute abnormality is seen. Electronically Signed: Desmond Mojica MD at 11:03 EDT , EKG Initial EKG: Attestation: I personally reviewed and interpreted this EKG as follows: Interpretation: Sinus Rhythm (Rate is 72. CO interval is 130 ms. QRS durations 98 ms. QT duration 408 ms. [place] is normal. Patient has abnormal ST segment which are biphasic in V1 and V2 she has a flipped T wave in aVL. Will need old EKG for comparison. In light of this EKG finding will obtain a troponin level.) Prior: Unchanged (September 02, 2022) Follow-up EKG: Attestation: I personally reviewed and interpreted this EKG as follows: Interpretation: Sinus Rhythm (Rate is 79. CO interval 128 ms. Cures duration 100 ms. QT duration 388 ms. [place] is normal. Patient has abnormalities. Described in V1 V2 and aVL. This is unchanged from prior.) Management Discussion w/another healthcare provider: Hospitalist (Spoke with Dr. Gloria Madrid. She was made aware of cardiology recommendation.), Skate Maker (Poke to Dr. Buck. He recommended cycling enzymes since patient is on aspirin, Plavix and anticoagulant.) and Other (Spoke with son. Had multiple discussions with patient) Critical Care Time Critical Care Time: Yes Critical care time (excluding procedures): 30-74 minutes (34), Including time spent: (History, physical, documentation, interpretation laboratory results), Discussing w/Patient &/or Family/Foundry Supervisor (Gayle with son and patient's severaltimes regarding results and treatment.), Discussing w/Consultants (Documented under the MDM portion of the chart), Arranging Admission or Transfer and Performing Direct Patient Care at Bedside (Treatment with nitroglycerin.) Discharge Plan Triage Chief Complaint: Shortness of Breath ED Provider: Clyde Serrano Dx/Rx/DC Orders Clinical Impression: ACS (acute coronary syndrome), Hyperlipidemia, Ischemic cardiomyopathy, Essential hypertension, Acute exacerbation of chronic obstructive pulmonary disease, Acute bronchospasm Prescriptions: No Action lorazepam 1 mg tablet 1 mg PO BID PRN PRN (Reason: Anxiety) Label Comments: take 1 tablet by mouth twice a day if needed gabapentin 300 MG capsule 300 mg PO TID Qty: 90 0RF paroxetine HCl 20 mg tablet 20 mg PO DAILY clopidogrel [Plavix] 75 mg tablet 75 mg PO DAILY Qty: 30 0RF pantoprazole [Protonix] 40 mg tablet,delayed release (DR/EC) 40 mg PO DAILY Qty: 30 0RF sucralfate [Carafate] 100 mg/mL suspension 10 ml PO Q6H Qty: 1000 0RF Rx Instructions: x 2 weeks amiodarone 200 mg tablet 200 mg PO 0800,1999 Qty: 180 3RF atorvastatin [Lipitor] 40 mg tablet 40 mg PO QHS Qty: 90 3RF lisinopril 2.5 mg tablet 2.5 mg PO BID Qty: 180 3RF furosemide 20 mg tablet 20 mg PO BIDLX Qty: 180 3RF ondansetron 4 mg tablet,disintegrating 4 mg PO Q8H PRN (Reason: nausea and vomiting) Qty: 10 0RF Xarelto 20 mg tablet See Rx Instructions .ROUTE .COMPLEX Qty: 30 0RF Dose Instruction: TAKE 1 TABLET BY MOUTH DAILY WITH EVENING MEAL Rx Instructions: TAKE 1 TABLET BY MOUTH DAILY WITH EVENING MEAL nicotine 10 mg/mL spray,non-aerosol 1 spray intranasal DAILY Qty: 40 6RF Rx Instructions: administer into each nostril carvedilol 6.25 mg tablet 6.25 mg PO BID Qty: 60 12RF Primary Care Provider: Care Physician,No Primary Referrals: Sudhir Ochoa MD [Med Staff - Mechanical Insulator] - Disposition Disposition: Acute Care Hospital [facility] What to do if you have Problems For any increased pain, shortness of breath, bleeding, nausea or vomiting, chestpain, or any unexpected problems, contact your Primary Care Provider. Call [facility] ([phone]) or report to the closest Emergency Room. Call 911 if necessary. 01/02/23 1237 <Electronically signed by Clyde Serrano MD> Cosigner Signature (if applicable): CC: No Primary Care Physician ~ Signed [facility] Work Phone: 1(534) 809-849303-06-2023 Miscellaneous Notes* Telephone Encounter - Linh Villalobos RN - 11/10/2022 10:54 AM EST Patient's son calls and notified of provider instructions. Son voices understanding. Linh Villalobos RN * Telephone Encounter - Marisa Mcdermott LPN - 11/07/2022 11:10 AM EST LEFT MESSAGE FOR PATIENT TO CALL OFFICE. * Telephone Encounter - Lyndsey Acevedo APRN.MANDIE - 11/06/2022 1:16 PM EST He will need to go through the usual channels to obtain records. Can reschedule a visit if needed with PCP. * Telephone Encounter - Micah Paige RN - 11/06/2022 12:30 PM EST Pts son Sanju called in and he [...] does not have a POA or Living Willon file. Please call and advise. documented [facility] encounterC[facility]-2023 Miscellaneous Notes* Telephone Encounter - Hallie Gonzalez RN - 11/06/2022 3:39 PM EST Patient has been identified by name and [...] you. Hallie Gonzalez RN documented in this encounterC[facility]02-06-2023 Miscellaneous Notes* Telephone Encounter - Marisa Mcdermott LPN - 10/13/2022 11:26 AM EST Spoke with Marleny and Barby from [facility] had contacted her and Marleny will verify again with her about refilling the Xarelto. * Telephone Encounter - Gabriel Galvan MD - 10/11/2022 5:42 PM EST Verify patient was able to get connected with below caller so able to keep getting Xarelto * Telephone Encounter - Micah Paige RN - 10/10/2022 1:14 PM EST Barby with [facility] at [facility] called and reports she was trying to [...] keep refilling her Xarelto. documented in this encounterC[facility]01-27-2023 Miscellaneous Notes* Telephone Encounter - Micah Paige RN - 10/03/2022 8:50 AM EST Could not get a hold of Pt, and shalom not let me leave a voice mail. Pts daughter called and is notified of providers message and instructions. She voices understanding, states to keep the appointmentfor Thursday. She works in the [employer] and will have her mother come in tomorrow and get her set up. Micah Paige RN * Telephone Encounter - Nora Crespo APRN.DONNA - 10/03/2022 8:01 AM EST Can we call and see if she was seen any where last night and how symptoms are doing? If needed she could be seen on my 3:40 slot today to address only the tonsillitis/acute symptoms and then would need to keep Thursday appointment to address the memory/cognitive issues. * Telephone Encounter - Hallie Gonzalez RN - 10/02/2022 7:33 PM EST Patient calling to ask about status of request for antibiotic. She states she needs it tonight. Advised Urgent Care evaluation. She says I'll just go to another ER. Hallie Gonzalez RN * Telephone Encounter - Micah Paige RN - 10/02/2022 3:51 PM EST Pt called in and reports she went to the ER for nausea and tonsillitis and they didn't do anything for her. She states she has an appointment on Thursday with Nora Crespo TRAINING MANAGER, but is asking if providerwould give her an antibiotic until then. She [...] a ride places. She reports she uses [facility] as her pharmacy. Please call and advise. documented in this encounterC[facility]01-25-2023 Miscellaneous Notes* Telephone Encounter - Nohemi Conley MA - 10/01/2022 11:13 AM EST Sanju notified & r/s patient for Friday 10/06 @ 11:40 with approval. Nohemi Conley MA * Telephone Encounter - Horacio Cervantes Ma - 09/30/2022 3:13 PM EST Left message to call office. 09/30/2022 3:13 PM * Telephone Encounter - Nora Crespo APRN.CNP - 09/30/2022 3:03 PM EST Could be medication or mood related or due to another cause. Since not acute would be okay to wait until her follow up to discuss unless they feel she needs seen sooner then can move up appointment. * Telephone Encounter - Hannah Modi LPN - 09/30/2022 2:20 PM EST Pt's son Samuel calls to report he [...] provider tells pt he is concerned and why.Son is asking if it could be medications or what else it could be. Pt has f/u appt 10/13/22. Hannah Modi LPN documented in this encounterC[facility]01-24-[address] Serrano [facility] September 30, 2022 11:15pm Note Date/Time September 30, 2022 1 0:05pm [facility] Medical Records Department [address] [place] [address] Emergency Department Summary 09/30/22 MR#: [id number] Acct: [id number] Name: MARCIA MASCORRO Rep #:[id number] : 1955 66 From: Clyde Serrano MD PCP: Dr. Sudhir Ochoa MD Status:R EG ER Location: ED HPI History of Present Illness Chief Complaint: General Illness Detail of Chief Complaint: Multiple Informant: patient Onset/Context/Timing Onset: Days Context: Sudden Onset Timing: Continuous Quality: Tingling arms and feet and left flank pain Location: Upper and lower extremity and flank Current Severity: Unable to determine. Patient became tearful and anxious Maximum Severity: Unable to determine Worsened by: Possibly anxiety Relieved by: Nothing Associated Symptoms Associated Symptoms: Foam when she urinates: she denies passing gas when she urinates Narrative Narrative: Patient is a 66-year-old woman with history of atherosclerotic heart disease, PAD, ischemic cardiomyopathy, essential hypertension, hyperlipidemia and tobaccouse. When asked why she came to the emergency room she said her arms and hands were tingling. She then endorsed bilateral feet numbness. She then began to cry and is anxious and seemed frazzled. Asked why she is anxious and she statesshe has been sick for 2 months and does not want to be sick. She also informed me that when she urinates she has foam come out and she has left flank pain. Patient denied fever become reported shakes. She states they were not chills. She denies headache, visual, ocular auditory symptoms. She denies trouble speech or swallowing. She denies chest discomfort of any type. She denies dyspnea, [place] exertion, orthopnea or PND. She denies abdominal pain, nausea,vomiting or diarrhea. She denies rash or any lesions. Prior similar symptoms: No Recent Illness/Hospitalization: No PFSH PFSH Medical History Anxiety and depression Atherosclerotic heart disease of [place] coronary artery without angina pectoris Calculus of left kidney COPD (chronic obstructive pulmonary disease) Depression Essential hypertension GERD (gastroesophageal reflux disease) History of non-ST elevation myocardial infarction (NSTEMI) (09/01/21) Hyperlipidemia Ischemic cardiomyopathy Kidney stones Myocardial infarct Obesity (BMI 30.0-34.9) Old anterior wall myocardial infarction Opiate dependence EVELYN (obstructive sleep apnea) Osteoporosis Personal history of transient ischemic attack (TIA), and cerebral infarction without residual deficits Smoker Sustained SVT TIA (transient ischemic attack) Tobacco abuse Home Medications lorazepam 1 mg tablet 1 mg PO BID PRN PRN Anxiety 06/15/21 [History Last Taken Unknown] gabapentin 300 mg capsule 300 mg PO TID nerve pain #90 caps 01/01/22 [Rx Last Taken 08/11/22] amiodarone 200 mg tablet 200 mg PO 0800,2000 #180 tabs 06/04/22 [Rx Last Taken Unknown] atorvastatin 40 mg tablet (Lipitor) 40 mg PO QHS #90 tabs 06/04/22 [Rx Last Taken Unknown] carvedilol 6.25 mg tablet 6.25 mg PO BID #90 tabs 06/04/22 [Rx Last Taken Unknown] furosemide 20 mg tablet 20 mg PO BIDLX #180 tabs 06/04/22 [Rx Last Taken Unknown] lisinopril 2.5 mg tablet 2.5 mg PO BID #180 tabs 06/04/22 [Rx Last Taken 08/11/22] paroxetine HCl 20 mg tablet 20 mg PO DAILY 06/09/22 [History Last Taken Unknown] clopidogrel 75 mg tablet (Plavix) 75 mg PO DAILY #30 tabs 08/04/22 [Rx Last Taken Unknown] pantoprazole 40 mg tablet,delayed release (Protonix) 40 mg PO DAILY #30 tabs 08/08/22 [Rx Last Taken Unknown] ondansetron 4 mg disintegrating tablet 4 mg PO Q8H PRN nausea and vomiting #10 tabs 08/16/22 [Rx Last Taken Unknown] sucralfate 100 mg/mL oral suspension (Carafate) 10 ml PO Q6H #1,000 mL 08/30/22 [Rx Last Taken Unknown] rivaroxaban 20 mg tablet (Xarelto) See Rx Instructions .Route .COMPLEX #30 tabs 09/17/22 [Rx Last Taken Unknown] nicotine 10 mg/mL nasal spray 1 spray intranasal DAILY #40 mL 09/19/22 [Rx Last Taken Unknown] Allergy/AdvReac Type Severity Reaction Status Date / Time No Known Allergies Allergy Verified 09/30/22 21:46 Family History Mother Hypertension CAD (coronary artery disease) CVA (cerebral vascular accident) Myocardial infarction Grandmother Myocardial infarction Surgical History History of hysterectomy History of left heart catheterization (01/20/22) History of total hysterectomy Hx of appendectomy Social History (Updated 09/30/22 @ 22:[address] Clyde Serrano MD) household members: none Smoking Status: Current some day smoker tobacco type: cigarettes alcohol intake: never substance use type: does not use ROS ROS ED Constitutional Constitutional ED: Denies chills, fever(s), subjective, sweats or weight loss Eyes Eyes: Denies blurry vision, change in vision or diplopia ENT ENT ED: Denies ear pain, rhinorrhea or sore throat Cardiovascular Cardiovascular: Denies chest pain, orthopnea, palpitations, paroxysmal nocturnaldyspnea or racing heartbeat Respiratory/Chest Respiratory/Chest: Denies cough, dyspnea, dyspnea on exertion, orthopnea or paroxysmal nocturnal dyspnea Gastrointestinal Gastrointestinal: Denies abdominal pain, diarrhea, melena, nausea or vomiting Genitourinary Genitourinary ED: Reports other Details: Per HPI narrative ; Denies dysuria, hematuria or urinary frequency Musculoskeletal Musculoskeletal: Reports other Details: Left flank pain ; Denies arthralgias, back pain, myalgias or neck pain Integumentary Denies abscess or rash Neurologic Neurologic: Reports paresthesias; Denies headache(s) or weakness Psychiatric Psychiatric: Reports anxiety and depression Endocrine Endocrinology: Denies cold intolerance, heat intolerance, polydipsia or polyuria Hematologic/Lymphatic Hematologic/Lymphatic: Reports systems reviewed and no addt'l complaints, exceptas documented EXAM Physical Exam Const Vital Signs: 09/30/22 21:34 09/30/22 21:44 09/30/22 21:46 Temperature 97.5 F L Temperature Source Temporal Pulse Rate 78 84 Respiratory Rate 16 16 Respiratory Effort Short of Breath Labored Respiratory Pattern Normal Blood Pressure 182/101 H 182/101 H Blood Pressure Mean 128 128 Pulse Ox 98 98 Oxygen Delivery Method Room Air Room Air Positive well nourished and well developed Constitutional Narrative: Very anxious and labile emotions with tear. General Appearance ED: well developed and pallor; Negative for cyanotic or diaphoretic HEENT Reports moist mucous membranes HEENT Narrative: Head is atraumatic normocephalic. Ears normal. Nares patent. Uvula midline. No deviation with protrusion. No erythema or exudate the posterior pharynx. Eyes PERRL and EOMs intact bilaterally Eyes Narrative: There is no nystagmus. General Eye ED: Negative for pale conjunctiva or scleral icterus Neck no lymphadenopathy, supple and no JVD Chest Wall inspection of chest normal and palpation of chest normal Resp normal respiratory effort and clear to auscultation bilaterally Cardio regular rate, regular rhythm, S1 normal heart sound, S2 normal heart sound and no murmurs GI normal to inspection, nondistended, normoactive bowel sounds, non-tender, non-distended and no masses; Negative for hepatosplenomegaly Palpation: soft Back/Spine General Back: CVA tenderness left Cervical Spine: Negative for cervical spine tenderness Thoracic Spine / Upper Back: Negative for thoracic spinal tenderness Lumbar Spine / Lower Back: Negative for lumbar spinal tenderness Extremity normal to inspection General Extremety ED: Negative for edema or tenderness General Extremity: Negative for edema Neuro oriented x3, CN's II-XII intact bilaterally and no sensory deficits noted Neuro Narrative: There is no dysmetria. Reflexes are 1+ at the bicep, tricep, brachialis, patella and ankle. There is no clonus. There is no Babinski sign. Sensorium / Orientation: alert Motor Exam: strength 5/5 throughout Psych mental status grossly normal Skin no rashes or lesions noted, no wounds and No skin turgor normal General Skin Exam: pallor; Negative for elasticity normal or jaundice MDM MDM MDM Narrative Medical decision making narrative: Difficult to assess due to anxiety and labile emotions. With bilateral upper extremity numbness and numbness of her feet doubt stroke. Concerned this may represent anxiety and hyperventilation syndrome. Patient had equivocal Chvosteksign. Will obtain basic metabolic panel to assess for electrolytes and specifically calcium. CBC to assess white count and differential. Because of her complaint of foam when she urinates a straight cath was obtained to assess for UTI. If there is evidence infection with flank pain she may have a subclinical course of pyelonephritis. Patient's blood pressure is elevated. However with her having bilateral upper and lower extremity paresthesia this is not consistent with stroke especially since she has a nonfocal neurologic exam. The more, do not believe this is due to hypertension. Review of outside note for cardiac and pulmonary evaluation revealed the following: Cardiac catheterization 09/02/2021: Elevated LVEDP 32 mmHg, moderate segmented LV systolic dysfunction, left ventricular ejection fraction by LV gram 25%, [place] multivessel coronary artery disease.? Recommendations including risk factor modification, medical therapy. Right upper quadrant ultrasound August 08, 2022?was normal. Echocardiogram 01/17/2022: Moderately dilated LV, severe segmental systolic dysfunction.? Ejection [id number] Dyskinetic right ventricular apex, moderate segmental dysfunction of the right ventricle. Enlarged left atrium, mild focal mitral valve calcification of the posterior leaflet, with 3+ mitral valve insufficiency. Mild tricuspid valve insufficiency, mild focal aortic valve calcification, no evidence of tamponade or significant effusion. CT angio revealed no evidence of pulmonary embolus. There was a small aortic aneurysm noted. Size was approximately 3 cm. Since patient has a nonfocal neurologic exam with upper and lower extremity paresthesia and labile emotions suspect this is due to anxiety. Plan is to discharge to home to follow-up with her primary care physician. Lab Data Attestation: I reviewed the patient's lab results. Lab results narrative: White count is normal. Patient has a lymphocytosis. Basic metabolic panel [place] slight elevation of creatinine from baseline at 1.08 with a GFR of 54 per urine is positive for ketones, blood, nitrites and leukoesterase on macro. Micro reveals no red cells, no white cells and no bacteria. Since this was a straight cath specimen will send urine for culture. Since there is no pyuria orbacteria will not treat with antibiotics. Labs: Laboratory Results - last 24 hr 01/24/23 01/24/23 01/24/23 21:22 21:22 22:23 WBC 7.7 RBC 4.87 Hgb 15.4 H Hct 46.2 MCV 94.9 MCH 31.6 MCHC 33.3 RDW Std Deviation 45.0 H RDW Coeff of Sariah 12.9 Plt Count 299 MPV 9.3 Immature Gran % (Auto) 0.400 Neut % (Auto) 44.9 L Lymph % (Auto) 43.3 H [place] % (Auto) 8.4 Eos % (Auto) 2.1 Baso % (Auto) 0.9 Absolute Neuts (auto) 3.5 Absolute Lymphs (auto) 3.35 Nucleated RBC % 0 Sodium 140 Potassium 3.8 Chloride 107 Carbon Dioxide 28.0 Anion Gap 5 BUN 19 H Creatinine 1.08 H Estim Creat Clear Calc 48.62 Est GFR (MDRD) Af Amer 65 Est GFR (MDRD) Non-Af 54 L BUN/Creatinine Ratio 17.6 Glucose 95 Calcium 10.2 H Urine Color Yellow Urine Clarity Clear Urine pH 6.5 Ur Specific [place] 1.020 Urine Protein Negative Urine Glucose (UA) Normal Urine Ketones 5 H Urine Occult Blood 50 H Urine Nitrite Positive H Urine Bilirubin Negative Urine Urobilinogen Normal Ur Leukocyte Esterase 25 H Urine RBC 0 SEEN Urine WBC 0 SEEN Ur Squamous Epith Cells 5-10 SEEN Urine Bacteria 0 SEEN Urine Mucus 0 SEEN Discharge Plan Triage Chief Complaint: General Illness ED Provider: Clyde Serrano Dx/Rx/DC Orders Clinical Impression: Hypertension, Hyperlipidemia, Ischemic cardiomyopathy, Paresthesia of upper andlower extremities of both sides Instructions: ED Hypertension, Established, ED Paraesthesias Prescriptions: No Action lorazepam 1 mg tablet 1 mg PO BID PRN PRN (Reason: Anxiety) Label Comments: take 1 tablet by mouth twice a day if needed gabapentin 300 MG capsule 300 mg PO TID Qty: 90 0RF paroxetine HCl 20 mg tablet 20 mg PO DAILY clopidogrel [Plavix] 75 mg tablet 75 mg PO DAILY Qty: 30 0RF pantoprazole [Protonix] 40 mg tablet,delayed release (DR/EC) 40 mg PO DAILY Qty: 30 0RF sucralfate [Carafate] 100 mg/mL suspension 10 ml PO Q6H Qty: 1000 0RF Rx Instructions: x 2 weeks amiodarone 200 mg tablet 200 mg PO 0800,1999 Qty: 180 3RF atorvastatin [Lipitor] 40 mg tablet 40 mg PO QHS Qty: 90 3RF carvedilol 6.25 mg tablet 6.25 mg PO BID Qty: 90 3RF lisinopril 2.5 mg tablet 2.5 mg PO BID Qty: 180 3RF furosemide 20 mg tablet 20 mg PO BIDLX Qty: 180 3RF ondansetron 4 mg tablet,disintegrating 4 mg PO Q8H PRN (Reason: nausea and vomiting) Qty: 10 0RF Xarelto 20 mg tablet See Rx Instructions .ROUTE .COMPLEX Qty: 30 0RF Dose Instruction: TAKE 1 TABLET BY MOUTH DAILY WITH EVENING MEAL Rx Instructions: TAKE 1 TABLET BY MOUTH DAILY WITH EVENING MEAL nicotine 10 mg/mL spray,non-aerosol 1 spray intranasal DAILY Qty: 40 6RF Rx Instructions: administer into each nostril Primary Care Provider: Sudhir Ochoa Referrals: Sudhir Ochoa MD [Primary Care Provider] - 3-5 Days if not improving Disposition Disposition: Home, Self Care What to do if you have Problems For any increased pain, shortness of breath, bleeding, nausea or vomiting, chestpain, or any unexpected problems, contact your Primary Care Provider. Call [facility] ([phone]) or report to the closest Emergency Room. Call 911 if necessary. 09/30/222314 <Electronically signed by Clyde Serrano MD> Cosigner Signature (if applicable): CC: Dr. Sudhir Ochoa MD ~ Signed [facility] Work Phone: 1(834) 780-721401-24-2023 History of Present illness Narrative* Pascale Bello RDMS - 09/30/2022 1:45 PM EST Radiology Service Progress Note PATIENT NAME: Marcia Mascorro DATE OF SERVICE: September 30, 2022 TIME: 2:04 PM PATIENT IDENTITY VERIFICATION COMPLETED USING TWO (2) IDENTIFIERS: Name and Date of confirmedby patient verbally. FALL SCREENING: Has the patient [...] 30, 2022 2:04 PM documented in this encounterC[facility]01-24-2023 Miscellaneous Notes* Result Encounter Note - Nora Crespo APRN.CNP - 09/30/2022 1:45 PM EST Plan to go over result at up coming follow up appointment 10/06, will likely refer to speciality ifpatient agreeable. documented in this encounterC[facility]01-18-2023 Miscellaneous Notes* Telephone Encounter - Micah Paige RN - 09/24/2022 9:12 AM EST Pt called and is notified of providers results and instructions. Pt voices understanding. Micah Paige RN * Telephone Encounter - Nora Crespo APRN.CNP - 09/24/2022 8:58 AM EST Bridget. Please call patient and let them know recent labs looked stable and without problems, her calcium is a little bit on the high side so next labs we can check the parathyroid and thyroid numbersto makes sure no issues there. No changes needed at this time and to keep next scheduled appointment. Thanks. documented in this encounterC[facility]01-17-2023 Instructions* Patient Instructions* Nora Crespo APRN.CNP - 09/23/2022 2:44 PM EST documented in this encounterC[facility] Clinic [facility]01-17-2023 History of Present illness Narrative* Nora Crespo APRN.CNP - 09/23/2022 2:35 PM EST SUBJECTIVE Marcia Mascorro is a 66 year old female here today for a check up on her medical problems. Chief Complaint Patient presents with: Establish Care Abdominal Pain: Patient states abdominal pain continues and unable to get into see GI until November and so did not take this appointment. Blood In Urine: was told had blood in urine HPI Marcia Mascorro is a 66 year old female who presents today for follow up. She was seen 08/28 with Lyndsey Acevedo for abdominal pain. Had been seen in ER for this at [facility] prior to appointment here. Issues with abdominal pain, nausea, vomiting. No vomiting recently. No black or tarry stool, is on xarelto and plavix. Pain has been to lower abdomen and epigastric area. Onset months ago but gradually worsening. Heartburn daily. No apsiration but at times feels stuff caught when swallowing. Last EGD [id number], reflux esophagitis. Has not seen GI yet. Taking carafate 4 times daily, protonix, zofran as needed, colace as needed. CT of abdomen 02/26/22 showed sigmoid diverticulosis without diverticulitis, 3.2 cm AAA, 2 small nonobstructing kidney stones in the left.. She notes that anything she eats ordrinks causes issues with heart burn. Throat hurts. Feels like food is getting stuck. Trying to getseen with Dr. Martinez. Feels like she has an infection in her lungs. Coughing a lot. Cough is dry. Has cut back on her smoking significantly. Still has her gallbladder. Last colonoscopy was in 2015. Admits to at times having some issues with dizziness too. She also feels like her throat and tongue are burning, noticing a coating on her tongue. [facility]. Her medications were reviewed today and her list is now up to date. Medications Current Outpatient Medications Medication Sig albuterol HFA (PROVENTIL HFA, VENTOLIN HFA) 90 mcg/actuation inhaler Inhale 2-4 Puffs as instructedevery 2 hours as needed for wheezing/shortness of [...] by mouth four times daily. 1tsp swish inmouth for several minutes, then swallow (or expectorate) 4 times daily until gone. umeclidinium-vilanterol (ANORO ELLIPTA) 62.5-25 mcg/actuation inhaler Inhale 1 Inhalation as instructed once daily. Diaper,Brief, Adult,Disposable (DEPEND EASY FIT UNDERGARMENTS) misc Size Medium pull up. Change depends once every 1-2 hrs. Dx incontinence (788.30) Prolapsed bladder (618.01) No current facility-administered medications for this visit. ALLERGIES No Known Allergies ACTIVE PROBLEM LIST Retana's Esophagus - 08/21/2016 (A priority) Mixed Hyperlipidemia [...] low back, sees pain MGT: Dr. Nayak Lumbassemgo - 12/30/2005 (M priority) Oab (Overactive Bladder) [...] she already has a known history of Retana's esophagus. She really needs an EGD, will add Pepcid, try and get her seen with [facility]. Check labs.Continue Protonix and Carafate. If not able to [...] 3.2 cm AAA - US CAROTID ARTERIES [facility] - US ABD AORTA 6. Bruit of left carotid artery - ICD9: 785.9, ICD10: R09.89 With her dizziness we will check an ultrasound - US CAROTID ARTERIES [facility] 7. Hematuria, unspecified type - ICD9: 599.70, ICD10: R31.9 Resolved - UA DIP B/O 8. 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 - US CAROTID ARTERIES [facility] - US ABD AORTA - [...] from today's visit and in agreement with treatmentplan. Questions answered. Agrees to call the office if questions, concerns of issues with acute symptoms not improving or if they worsen. Return in about 2 weeks (around 10/07/2022) for recheck. Nora Crespo APRN-DONNA documented in this encounterC[facility]23 Miscellaneous Notes* Telephone Encounter - Hallie Gonzalez RN - 09/10/2022 3:14 PM EST Patient has been identified by name and [...] you. Hallie Gonzalez RN documented in this encounterCleveland [facility] Hospital12-21-2022 Miscellaneous Notes* Telephone Encounter - Horacio Cervantes Ma - 08/27/2022 9:30 AM EST Patient notified, verbalized understanding. Patient asking to be seen tomorrow - Transferred to flight crew scheduler for appointment. * Telephone Encounter - Annamarie Lopez APRN.CNP - 08/27/2022 9:21 AM EST I have no open 40 min slots today to reschedule with me today. If she is acutely ill then she can go to [facility] or back to the ER Annamarie Lopez APRN.CNP * Telephone Encounter - Maureen Hassan LPN - 08/27/2022 8:45 AM EST Pt was scheduled with TRAINING MANAGER at 8am this morning. Pt called & stated the taxi did not show up to bring her for appt. Pt asking to reschedule today. Man in the background yelling obscenities & saying pt needs seentoday as she is sick. Maureen Hassan LPN documented in this encounterCleveland [facility]05-17-2022 Miscellaneous Notes* Telephone Encounter - Chucky Martinez MD - 01/21/2022 10:38 AM EDT Noted. * Telephone Encounter - Elsy Sanz RN - 01/21/2022 9:32 AM EDT Tiff, a community case manager with [facility] calling to ask if Dr. Martinez was patient's provider. She states she wanted to inform him that patient had a recent hospital stay at [facility]. Informed Tiff that per May 2020 notes, [...] as requested. Thank you. documented in this encounterCleveland Clinic [facility]05-10-2022 Instructions* Patient Instructions* Pascale Mata, JARRED.[employer]ILLERY - 01/14/2022 4:21 PM EDT Understanding COPD What is COPD? COPD stands for chronic obstructive pulmonary (lung) disease. COPD is a term applied to a family ofdiseases that includes emphysema, chronic bronchitis, and emphysema [...] might develop an enlarged heart (cor pulmonale). Thiscondition weakens the heart and causes increased shortness [...] the irritation. The cilia are then unable tohelp clean mucus from the airways. Bronchitis is [...] blood and carbon dioxide cannot be taken fromthe blood to be exhaled. How is COPD [...] be evaluated for lung volume reduction surgery orlung transplantation. You might also be eligible to [...] to and follow your treatment plan. Copyright [id number] [facility]. All rights reserved documented in this encounterCleveland Clinic [facility]05-10-2022 History of Present illness Narrative* Pascale Mata APRN.DONNA - 01/14/2022 4:16 PM EDT This note was created using Playteauriter. Subjective Marcia Mascorro is a 66 year old female. [...] history is provided by the patient. No engine room helper was used. Cough This is a new [...] pain, no headaches, no rhinorrhea, no sore throat,no myalgias, no shortness of breath and no eye redness. She has tried decongestants and cough syrupfor the symptoms. The treatment provided no relief. She is a smoker. Her past medical history is significant for COPD. Her past medical history does not include bronchitis, pneumonia, bronchiectasis, emphysema or asthma. PAST MEDICAL HISTORY Diagnosis Date Anxiety Chronic pain low back, sees pain MGT: Dr. Nayak COPD (chronic obstructive pulmonary disease) ([facility]) Depression Essential hypertension, benign Sees Dr. Best GERD (gastroesophageal reflux disease) Incontinence 07/07/2014 Opioid dependence ([facility]) 01/15/2020 In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 elsewhere ([facility]) Supraventricular tachycardia ([facility]) Other specified cardiac dysrhythmias Acute exacerbation of chronic obstructive pulmonary disease (COPD) ([facility]) Obstructive chronic bronchitis with exacerbation LV (left ventricular) mural thrombus Acute myocardial infarction, unspecified site, episode of care unspecified Chest pain, unspecified type NSTEMI (non-ST elevated myocardial infarction) ([facility]) Acute myocardial infarction, subendocardial infarction, episode of care unspecified HFrEF (heart failure with reduced ejection fraction) ([facility]) Heart failure, unspecified Gastroesophageal reflux disease, unspecified whether esophagitis present [facility] Diagnosis Onset Date Resolution Status GERD (gastroesophageal reflux disease) acute Ischemic cardiomyopathy acut e LV (left ventricular) mural thrombus acute Essential hypertension chron ic Hyperlipidemia chronic Acute exacerbation of chroni c obstructive pulmonary disease resolved [facility] Work Phone: Evaluation note* Diagnosis Onset Date Resolution Status GERD (gastroesophageal reflux disease) acute Ischemic cardiomyopathy acut e LV (left ventricular) mural thrombus acute Essential hypertension chron ic Hyperlipidemia chronic Acute exacerbation of chroni c obstructive pulmonary disease resolved Bullous emphysema acute Ischemic cardiomyopathy acut e COPD with asthma chronic Tobacco abuse [facility] Work Phone: Evaluation note* Diagnosis Encounter for screening for lung cancer- Primary Chronic cough Cough Chronic bronchitis, unspecified chronic bronchitis type (HCC) Smoker Tobacco use disorder [facility] Diagnosis Radiculopathy, lumbosacral region- Primary Thoracic or lumbosacral neuritis or radiculitis, unspecified Neuropathy Mononeuritis of unspecified site Pain in right leg Paresthesia of skin Disturbance of skin sensation [facility]* Diagnosis Onset Date Resolution Status Bullous emphysema acute Ischemic cardiomyopathy acut e COPD with asthma chronic Tobacco abuse chronic Popliteal artery occlusion, right acute Dysphagia [facility] Work Phone: Evaluation note* Diagnosis Onset Date Resolution Status Popliteal artery occlusion, right acute Dysphagia [facility] Work Phone: Evaluation note* Diagnosis Lower abdominal pain Abdominal pain, other specified site Abdominal aneurysm (HCC) Abdominal aneurysm without mention of rupture Dizziness Dizziness and giddiness [facility]* Diagnosis Onset Date Resolution Status Dysphagia chronic Atherosclerotic heart diseas e of [place] coronary artery without angina pectoris acute NICHOLSON (dyspnea on exertion) ac algaaciq Ischemic cardiomyopathy acut e LV (left ventricular) mural thrombus acute Essential hypertension chron ic Hyperlipidemia chronic [facility] Work Phone: Evaluation note* Diagnosis Encounter for screening mammogram for breast cancer [facility] Diagnosis Onset Date Resolution Status Dysphagia chronic Atherosclerotic heart diseas e of [place] coronary artery without angina pectoris acute [place] (dyspnea on exertion) ac algaaciq Ischemic cardiomyopathy acut e LV (left ventricular) mural thrombus acute Essential hypertension chron ic Hyperlipidemia chronic Barretts esophagus chronic Common bile duct obstruction chronic Dysphagia [facility] Work Phone: Evaluation note* Diagnosis Onset Date Resolution Status Atherosclerotic heart diseas e of [place] coronary artery without angina pectoris acute N[place]OLSON (dyspnea on exertion) ac algaaciq Ischemic cardiomyopathy acut e LV (left ventricular) mural thrombus acute Essential hypertension chron ic Hyperlipidemia chronic Barretts esophagus chronic Common bile duct obstruction chronic Dysphagia chronic Barretts esophagus [facility] Work Phone: Evaluation note* Diagnosis Onset Date Resolution Status Barretts esophagus chronic Common bile duct obstruction chronic Dysphagia chronic Barretts esophagus [facility] Work Phone: Evaluation note* Diagnosis Onset Date Resolution Status Barretts esophagus [facility] Work Phone: Evaluation note* Diagnosis RUQ pain- Primary Abdominal pain, right upper quadrant Liver abscess Abscess of liver Infection in abdomen ([facility]) Unspecified peritonitis [facility]* Diagnosis Gait instability- Primary Abnormality of gait Ankle weakness Other symptoms referable to ankle and foot joint Peripheral neuropathic pain Retana's esophagus with dysplasia Retana's esophagus Lower abdominal pain Abdominal pain, other specified site [facility]* Diagnosis Abnormal finding of diagnostic imaging- Primary Other nonspecific (abnormal) findings on radiological and other examinations of body structure documented in this encounter [facility] note* Diagnosis Infection in abdomen (HCC) Unspecified peritonitis [facility]* Diagnosis Infection in abdomen (HCC)- Primary Unspecified peritonitis RUQ pain Abdominal pain, right upper quadrant Liver abscess Abscess of liver documented in this encounter [facility] note* Diagnosis Generalized abdominal pain- Primary Abdominal pain, generalized History of abdominal abscess Personal history of other specified diseases Retana's esophagus with dysplasia Retana's esophagus Pneumonia due to infectious organism, unspecified laterality, unspecified part of lung Encounter for therapeutic drug monitoring [facility]* Diagnosis Generalized abdominal pain Abdominal pain, generalized documented in this encounter [facility] note* Diagnosis Hiatal hernia- Primary Diaphragmatic hernia without mention of obstruction or gangrene Generalized abdominal pain Abdominal pain, generalized History of abdominal abscess Personal history of other specified diseases Type 2 diabetes mellitus with other specified complication, without long-term current use of insulin (HCC) Essential hypertension, benign Abdominal aneurysm (HCC) Abdominal aneurysm without mention of rupture Chronic combined systolic and diastolic CHF (congestive heart failure) (HCC) Chronic combined systolic and diastolic heart failure Chronic bronchitis, unspecified chronic bronchitis type (HCC) Cardiomyopathy in disease classified elsewhere (HCC) Supraventricular tachycardia (HCC) Other specified cardiac dysrhythmias documented in this encounter [facility] note* Diagnosis Hiatal hernia Diaphragmatic hernia without mention of obstruction or gangrene Generalized abdominal pain Abdominal pain, generalized History of abdominal abscess Personal history of other specified diseases documented in this encounter [facility] note* Diagnosis Anxiety- Primary Anxiety state, unspecified Epigastric pain Abdominal pain, epigastric Nausea Nausea alone Neuropathy Mononeuritis of unspecified site Generalized abdominal pain Abdominal pain, generalized Lower abdominal pain Abdominal pain, other specified site documented in this encounter [facility] note* Diagnosis Chronic bronchitis, unspecified chronic bronchitis type ([facility]) documented in this encounter [facility] note* Diagnosis Hiatal hernia- Primary Diaphragmatic hernia without mention of obstruction or gangrene Epigastric pain Abdominal pain, epigastric Encounter for therapeutic drug monitoring Mixed hyperlipidemia Type 2 diabetes mellitus with other specified complication, without long-term current use of insulin ([facility]) Vitamin D deficiency Unspecified vitamin D deficiency Stress incontinence, female Female stress incontinence OAB (overactive bladder) Hypertonicity of bladder Essential hypertension, benign Other chronic pain Anxiety Anxiety state, unspecified Weight loss, non-intentional Loss of weight documented in this encounter [facility] note* Diagnosis Acute cough- Primary Viral illness Unspecified viral infection, in conditions classified elsewhere and of unspecified site Acute cough documented in this encounter [facility] note* Diagnosis Acute cough documented in this encounter [facility] note* Diagnosis Hiatal hernia- Primary Diaphragmatic hernia without mention of obstruction or gangrene documented in this encounter [facility] note* Diagnosis Encounter for screening mammogram for breast cancer documented in this encounter [facility] note* Diagnosis Sore throat- Primary Acute pharyngitis Respiratory infection Other diseases of respiratory system, not elsewhere classified documented in this encounter [facility] note* Diagnosis Chronic obstructive pulmonary disease, unspecified COPD type ([facility])- Primary Gastroesophageal reflux disease with esophagitis Hypokalemia Hypopotassemia Chronic pain of both ankles Epigastric pain Abdominal pain, epigastric Nausea Nausea alone Type 2 diabetes mellitus with other specified complication, without long-term current use of insulin ([facility]) Vitamin D deficiency Unspecified vitamin D deficiency Mixed hyperlipidemia Chronic pain of both feet Pleurisy Pleurisy without mention of effusion or current tuberculosis Pulmonary emphysema, unspecified emphysema type ([facility]) Encounter for long-term current use of medication [facility] Diagnosis Chronic obstructive pulmonary disease, unspecified COPD type (HCC)- Primary [facility] Diagnosis Chronic obstructive pulmonary disease, unspecified COPD type (HCC)- Primary Retana's esophagus without dysplasia Retana's esophagus Left upper quadrant abdominal pain Hypoxia Hypoxemia Neuropathy Mononeuritis of unspecified site Foamy urine Other nonspecific finding on examination of urine Hiatal hernia Diaphragmatic hernia without mention of obstruction or gangrene Other chronic pain [facility]* Diagnosis Type 2 diabetes mellitus with other specified complication, without long-term current use of insulin (HCC)- Primary [facility] Diagnosis Anxiety- Primary Anxiety state, unspecified [facility]* Diagnosis Paraesophageal hernia- Primary Diaphragmatic hernia without mention of obstruction or gangrene Esophageal dysphagia Dysphagia, pharyngoesophageal phase [facility]* Diagnosis Confusion- Primary Unspecified psychosis Anxiety Anxiety state, unspecified Neuropathy Mononeuritis of unspecified site Epigastric pain Abdominal pain, epigastric Gastroesophageal reflux disease with esophagitis without hemorrhage Nausea Nausea alone Hypokalemia Hypopotassemia Encounter for screening mammogram for breast cancer Encounter for therapeutic drug monitoring Vitamin D deficiency Unspecified vitamin D deficiency IFG (impaired fasting glucose) Impaired fasting glucose Major depressive disorder, recurrent, moderate (HCC) Major depressive disorder, recurrent episode, moderate Chronic pain syndrome Insomnia, unspecified type Dependence on supplemental oxygen Seborrheic dermatitis of scalp Other seborrheic dermatitis [facility] Diagnosis Acute cystitis without hematuria- Primary Acute cystitis [facility] Diagnosis Acute cough- Primary Pleural effusion, not elsewhere classified Sinobronchitis Unspecified sinusitis (chronic) Acute cough [facility] Diagnosis Acute cough [facility] Rakesh Martinez [facility] June 24, 2023 11:47am Note Date/Time June 24, 2023 1 1:47am [facility] Medical Records Department [facility] [place] [address] History & Physical Exam 06/24/23 1147 MR#: [id number] Acct: [id number] Name: MARCIA MASCORRO Rep #:[id number] : [id number] 67 From: Rakesh Friend DO PCP: FATMATA Quevedo Status[place] [facility] [place] [facility] [place] Location: [place] [address] History and Physical Date of Admission: 06/24/23 67 F who presents to the office today for PMH COPD; anxiety; depression; HTN; HLD; osteoporosis; cardiomyopathy; CHF; PVD [facility] ED 01.13.23 with retrosternal pain/pressure. Workup without concern. Discharged with Carafate and Zofran. [facility] ED 01.14.23 with right sided abdominal pain/ache with some vaginal spotting despite total hysterectomy history. ? Biochemical CBC, CMP, lipase without pertinent abnormality. ? AST L12-ALT 15-AP H196 ? CT abd/pel intraluminal density within gallbladder; diverticulosis; stable aortic aneurysm ? US RUQ normal liver and gallbladder and pancreas. *[facility] established 05.22.[address] [facility] where she did receive ST services. Postprandial nausea and pain in her ribs and back with dysphagia with anything that is put into her mouth. BM occur every 2-3 days with use of laxatives with hard stools with incomplete evacuation. ROS Const Constitutional: No anorexia, fatigue, fever(s), weight change or sleep problems Eyes Eyes: No change in vision ENT ENT: No abnormal hearing, difficulty swallowing, mouth lesions, tongue swelling or throat swelling Resp Respiratory: No cough or shortness of breath Cardio Cardiology: No chest pain at rest, chest pain with exertion, shortness of breathor dyspnea on exertion Gastro GI: No difficulty swallowing Genitourinary-Female: No difficulty urinating or burning urination Musc Musculoskeletal: No joint pain, joint swelling, muscle weakness or decreased muscle mass Skin Skin: No hair loss in leg, yellowing of the eye, itchy eyes, rash, skin ulcer orskin swelling Neuro Neurology: No abnormal hearing, abnormal movements, confusion, unsteady gait/balance or memory loss Psych Psychiatric: No anxiety, No confusion and No memory loss Endo Endocrine: No fatigue or weight change Aller/Imm Allergy/Immunologic: No itchy eyes, throat swelling or tongue swelling Pranav/Lymp Hematologic/Lymphatic: No easy bleeding, easy bruising or enlarged lymph nodes Exam Const General: cooperative and comfortable Nutritional Appearance: average body habitus and well nourished [facility] Head: normal to inspection Ears: hearing grossly normal bilaterally Nose: external nose normal Face and sinus: normal facial exam Mouth: oral mucosae normal Throat: posterior oropharynx normal Eyes General: appearance normal, both eyes and all related structures Neck Neck: normal visual inspection Chest Chest palpation & inspection: normal inspection of the chest and normal palpation of entire chest wall Resp Effort & Inspection: normal respiratory effort Auscultation: Bilateral: Clear to Auscultation Cardio Palpation: normal PMI Rate: regular rate Rhythm: regular rhythm GI Inspection: normal to inspection Auscultation: normal bowel sounds Percussion: normal to percussion Palpation: no hepatosplenomegaly Skin General: no rashes or lesions noted Neuro General: patient alert Extrem General: normal to inspection Psych Affect: normal affect Quality Reporting Tobacco Screening ([facility] 138) Smoking Status: Current some day smoker Assessment and Plan Assessment and Plan (1) Dysphagia: Status: Chronic Plan: Patient presents for chronic pains and symptoms that have been going on for 6-12months and anxiety, saying that she is out of her Ativan, she thinks that is contributing to all of her symptoms, and her daughter also states that she is here looking for the possibility of placement to [facility] facility. This is a complex case. The patient is experiencing pain when she swallows. The pain is in her left shoulder and her upper abdomen. She states whenever she swallows liquids or food she has pain immediately. This past night, she states she was up all nightsick after having the pain. There is not a delay with the onset of pain after eating but she does have some pain in her right upper quadrant and they are bothconcerned that she may have gallstones because they were told that at some pointin the past. She states she has been generally weak for about 3 weeks and trouble getting around her house/apartment because of feeling very weak and sweating but no other exertional specific symptoms. She also complains of esophageal dysphagia. The differential diagnosis for abdominal pain esophageal dysphagia does include IBS, esophageal spasm, esophageal dysmotility disorder, H. pylori associated gastritis. She will undergo an upper endoscopy with possible dilation of the upper esophagus. She will also need an MRCP because she had a ultrasound that showed a dilated commonbile duct up to 7 mm in the setting of normal liver enzymes. Differential diagnosis could be ampullary lesion, distal biliary stricture, choledochal cyst, micro choledocholithiasis. She is okay with this plan. I have examined the patient and the H&P has been reviewed. There are no clinicalchanges since date of exam. 06/24/23 1147 <Electronically signed by Rakesh Martinez DO> Cosigner Signature (if applicable): CC: FATMATA Crespo; Rakesh Martinez, ~ Signed [facility] Work Phone: Hospital Discharge instructions Additional Instructions Your labs, chest x-ray and EKG were all unremarkable and unchanged in the past. Your pain appears to be secondary to musculoskeletal pain. Motrin and Tylenol for pain.[facility] Work Phone: Hospital Discharge instructions Additional Instructions Cardiac work-up negative. CTA chest also negative. Take Carafate as prescribed continue plan follow-up with GI.[facility] Work Phone: Hospital Discharge instructions Additional Instructions [facility] Work [facility]: Hospital Discharge instructions Additional Instructions Your work-up today showed that all your values for your liver and kidney are at their baseline. You need to continue to follow-up with GI/Dr. Martinez to get your MRCP to further assess the cause of your recurrent abdominal pain. Continue all of your prescribed medications at home as directed and return to the ER should you have any further concernsWSum[facility] Work Phone: Hospital Discharge instructions Additional Instructions Follow-up for your cardiac testing tomorrow as scheduled.[facility] Work Phone: Hospital Discharge instructions Additional Instructions Thank you for trusting us with your care today! Please take Tylenol (2 pills, 650 mg), ibuprofen (2 pills, 400 mg) every 6 hours as needed for pain and fever control. Please take tramadol as needed if the above regimen does not improve your pain. Please return to the emergency department if your symptoms change or worsen. Your CT scan shows a stable aortic aneurysm. Please follow with your primary care physician for ongoing monitoring of this finding. Please follow with your primary care physician for further outpatient evaluation and management.[facility] Work Phone: Hospital Discharge instructions Additional Instructions Follow-up with your primary care provider, and with Dr. Martinez as soon as possible.[facility] Work Phone: Hospital Discharge instructions No data available for this section [facility] Hospital Discharge instructions Additional Instructions Use your oxygen. Take the steroid burst. Use your albuterol as directed. Return with increased shortness of breath, new or worsening symptoms.[facility] Work Phone: Hospital Discharge instructions Additional Instructions All your blood work today looked good. Your urine was clean with no signs of infection or kidney stone. Follow-up with your doctor as needed. Use your pain medication that you use at home.[facility] Work Phone: Progress note No data available for this section [facility] Reason for referral (narrative)* Diagnostic Procedure Only (Routine) - Authorized Specialty Diagnoses / Procedures Referred By Karma rothman Referred To Contact US IMAGING Diagnoses Lower abdominal pain Abdominal aneurysm Dizziness Procedures US ABD AORTA US RETROPERITONEAL REAL TIME W/IMAGE LIMITED Nora Crespo APRN.[employer] [address] [place] [address] Us Imaging Referral ID Status Reason Start Date Expiration Date Visits Requested Visits Authorized [id number] Authorized Auto-Generat ed Referral 09/23/2022 10/23/2023 1 1 * Outpatient Procedure (Routine) - Authorized Specialty Diagnoses / Procedures Referred By Karma rothman Referred To Contact [facility] Diagnoses Abdominal aneurysm Bruit of left carotid artery Dizziness Procedures US CAROTID ARTERIES [facility] DUPLEX SCAN EXTRACRANIAL ART COMPL BI STUDY Nora Crespo APRN.CNP [address] [place] [phone] [facility] [place] [address] [place] [address] Referral ID Status Reason Start Date Expiration Date Visits Requested Visits Authorized [id number] Authorized Auto-Generat ed Referral 09/23/2022 09/23/2023 1 1 [facility] for referral (narrative)* Diagnostic Procedure Only (Routine) - Closed Specialty Diagnoses / Procedures Referred By Contac t Referred To Contact US IMAGING Diagnoses Lower abdominal pain Abdominal aneurysm (HCC) Dizziness Procedures US ABD AORTA US RETROPERITONEAL REAL TIME W/IMAGE LIMITED Nora Crespo APRN.CNP [address] [place], [place] [id number] Us Imaging [id number] Referral ID Status Reason Start Date Expiration Date V isits Requested Visits Authorized [id number] Closed Auto-Generate d Referral 09/23/2022 10/23/2023 1 1 [facility] for referral (narrative)* Diagnostic Procedure Only (Routine) - Pending Review Specialty Diagnoses / Procedures Referred By Apurvaac t Referred To Contact [facility] Diagnoses Encounter for screening mammogram for breast cancer Procedures YANG SCREENING SCREENING MAMMOGRAPHY BI 2-VIEW BREAST INC CAD Gabriel Galvan MD [address] [place] [address] [facility] [address] [place] [phone] Referral ID Status Reason Start Date Expiration Date Visits Requested Visits Authorized [id number] Pending Review Auto-Generat ed Referral 08/12/2023 09/10/2024 1 1 [facility] for referral (narrative)* Outpatient Procedure (Routine) - New Request Specialty Diagnoses / Procedures Referred By Contac t Referred To Contact [facility] Diagnoses Hiatal hernia Procedures EGD DIAGNOSTIC ESOPHAGOGASTRODUODENOSC OPY TRANSORAL DIAGNOSTIC Obed Balbuena MD [address] [place] [phone] [facility] [place] [address] [place] [address] Referral ID Status Reason Start Date Expiration Date Visits Requested Visits Authorized [id number] New Request Auto-Generat ed Referral 4 06/24/2025 1 1 * Outpatient Procedure (Routine) - New Request Specialty Diagnoses / Procedures Referred By Karma rothman Referred To Contact [facility] Diagnoses Hiatal hernia Procedures MANOMETRY ESOPHAGEAL ESOPHAGEAL MOTILITY STUDY W/INTERP&RPT Obed Balbuena MD [address] [place] [address] [facility] [place] [address] [place] [address] Referral ID Status Reason Start Date Expiration Date Visits Requested Visits Authorized [id number] New Request Auto-Generat ed Referral 4 06/24/2025 1 1 [facility] for referral (narrative)* Diagnostic Procedure Only (Routine) - New Request Specialty Diagnoses / Procedures Referred By Karma rothman Referred To Contact [facility] Diagnoses Encounter for screening mammogram for breast cancer Procedures YANG SCREENING W GANESH SCREENING DIGITAL BREAST TOMOSYNTHESIS BI SCREENING MAMMOGRAPHY BI 2-VIEW BREAST INC CAD Gabriel Galvan MD [address] [place] [phone] [facility] [address] [place] [phone] Referral ID Status Reason Start Date Expiration Date Visits Requested Visits Authorized [id number] New Request Auto-Generat ed Referral 4 08/19/2025 1 1 [facility] for referral (narrative)* Outpatient Procedure (Routine) - New Request Specialty Diagnoses / Procedures Referred By Karma rothman Referred To Contact [facility] Diagnoses Chronic obstructive pulmonary disease, unspecified COPD type (HCC) Procedures SPIROMETRY WITH DILATOR IF OBSTRUCTED BRNCDILAT RSPSE SPMTRY PRE&POST-BRNCDILAT ADMN Peyton Torres MD [address] [place] [address] [address] Referral ID Status Reason Start Date Expiration Date Visits Requested Visits Authorized [id number] New Request Auto-Generat ed Referral 09/30/2024 10/29/2025 1 1 * Outpatient Procedure (Routine) - New Request Specialty Diagnoses / Procedures Referred By Contac t Referred To Contact [facility] Diagnoses Chronic obstructive pulmonary disease, unspecified COPD type (HCC) Procedures LUNG DIFFUSION CAPACITY (DLCO) DIFFUSING CAPACITY Peyton Torres MD [address] [facility] [address] [address] Referral ID Status Reason Start Date Expiration Date Visits Requested Visits Authorized [id number] New Request Auto-Generat ed Referral 09/30/2024 10/29/2025 1 1 [facility] for referral (narrative)No reason for referral information availableWSum[facility] Work Phone: Summary Purpose Family History No Family History Records Found Relationship Condition Age at Onset Recorded Date/T donavan mother Hypertension Unknown Coronary artery disease Unknown Cerebrovascular accident (CVA) Unknown Myocardial infarction Unknown grandmother Myocardial infarction Unknown Advance Directives No Advanced Directives Records Found Date Activated Date Inactivated Comments 12/22/2023 4:20 PM Question Answer Comments Full Code Order Discussed With: Patient Date Activated Date Inactivated Comments 12/01/2023 4:07 AM 12/12/2023 6:10 PM Question Answer Comments Full Code Order Discussed With: Patient Latest Code Status on File Code Status Date Activated Date Inactivated Comments Full Code 06/14/2021 3:52 PM Healthcare Agents on File Name Relationship Healthcare Agent [facility] Communication Sanju Douglas Child Primary Decision Maker Latest Code Status on File Code Status Date Activated Date Inactivated Comments Full Code 06/16/2021 3:05 AM Full Code 06/14/2021 3:52 PM 06/15/2021 4:09 AM Healthcare Agents on File Name Relationship Healthcare Agent [facility] Communication Sanju Pop Primary Decision Maker Latest Code Status on File Code Status Date Activated Date Inactivated Comments Full Code 06/16/2021 3:05 AM 06/18/2021 5:10 PM Healthcare Agents on File Name Relationship Healthcare Agent [employer] Communication Sanju Pop Primary Decision Maker [phone] (Mobile) Advance Directive Response Recorded Date/ Time Advance Directives No September 15, 2017 8:33pm Living Will No November 25, 2021 9:21pm Power of Etch Operator [employer] No November 25 9:21pm Advance Directive Response Recorded Date/ Time Advance Directives No September 15, 2017 8:33pm Living Will No January 01, 2022 1:48am Power of Etch Operator [employer] No January 01 1:48am Documents on File Type Date Recorded Patient Decker Operator Expl anation Advance Directive(s) 09/13/2019 12:48 PM Advance Directive(s) 08/23/2019 8:47 PM Advance Directive(s) 04/16/2016 12:37 PM Advance Directive(s) 04/04/2016 12:48 PM Advance Directive Response Recorded Date/ Time Advance Directives No September 15, 2017 8:33pm Living Will No January 17, 2022 3 :02am Power of Etch [employer] No January 17, 2022 3:02am Advance Directive Response Recorded Date/ Time Advance Directives No September 15, 2017 8:33pm Living Will No January 26, 2022 4 :23pm Power of Etch Operator [employer] No January 26, 2022 4:23pm Advance Directive Response Recorded Date/ Time Advance Directives No September 15, 2017 8:33pm Living Will No June 04, 2022 6:44pm Power of Etch Operator [employer] No May 6:44pm Advance Directive Response Recorded Date/ Time Advance Directives No September 15, 2017 8:33pm Living Will No June 09 12:15am Power of Etch Operator [employer] No June 09 12:15am Advance Directive Response Recorded Date/ Time Advance Directives No September 15, 2017 8:33pm Living Will No June 29 9:21am Power of Etch Operator [employer] No June 29, 2022 9:21am Advance Directive Response Recorded Date/ Time Advance Directives No September 15, 2017 7:33pm Living Will No August 04 1:12am Power of Etch Operator [employer] No August 04, 2022 1:12am Advance Directive Response Recorded Date/ Time Advance Directives No August 07, 2022 8:59am Living Will No August 08 8:19pm Power of Etch Operator [employer] No August 08, 2022 8:19pm Advance Directive Response Recorded Date/ Time Advance Directives No August 11, 2022 11:38am Living Will No August 11 11:38am Power of Etch Operator [employer] No August 11, 2022 11:38am Advance Directive Response Recorded Date/ Time Advance Directives No August 11, 2022 11:38am Living Will No August 23 11:18am Power of Etch Operator [employer] No August 23, 2022 11:18am Advance Directive Response Recorded Date/ Time Advance Directives No August 11, 2022 11:38am Living Will No August 30 1:11pm Power of Etch Operator [employer] No August 30, 2022 1:11pm Advance Directive Response Recorded Date/ Time Advance Directives No August 11, 2022 11:38am Living Will No September 02 8:03pm Power of Etch Operator [employer] No September 02, 2022 8:03pm Advance Directive Response Recorded Date/ Time Advance Directives No August 11, 2022 11:38am Living Will No September 30 9:46pm Power of Etch Operator [employer] No September 30, 2022 9:46pm Advance Directive Response Recorded Date/ Time Advance Directives No August 11, 2022 12:38pm Living Will No January 02, 2023 9:25am Power of Etch Operator [employer] No January 02 9:25am Advance Directive Response Recorded Date/ Time Advance Directives No August 11, 2022 12:38pm Living Will No January 10, 2023 1: 13pm Power of Etch Operator [employer] No January 10, 2023 1:13pm Advance Directive Response Recorded Date/ Time Advance Directives No August 11, 2022 12:38pm Living Will No January 12, 2023 10 :45pm Power of Etch Operator [employer] No January 12, 2023 10:45pm Advance Directive Response Recorded Date/ Time Advance Directives No August 11, 2022 12:38pm Living Will No January 14, 2023 1 :42pm Power of Etch Operator [employer] No January 14, 2023 1:42pm Advance Directive Response Recorded Date/ Time Advance Directives No August 11, 2022 12:38pm Living Will No January 16, 2023 7 :34am Power of Etch Operator [employer] No January 16, 2023 7:34am Advance Directive Response Recorded Date/ Time Advance Directives No August 11, 2022 12:38pm Living Will No June 01, 2023 11:37pm Power of Etch Operator [employer] No May 11:37pm Advance Directive Response Recorded Date/ Time Advance Directives No August 11, 2022 12:38pm Living Will No June 23 4:44pm Power of Etch Operator [employer] No June 23, 2023 4:44pm Advance Directive Response Recorded Date/ Time Advance Directives No August 11, 2022 11:38am Living Will No July 19, 023 7:52pm Power of Etch Operator [employer] No July 19, 2023 7:52pm Advance Directive Response Recorded Date/ Time Advance Directives No August 11, 2022 11:38am Living Will No July 29, 2 023 7:49pm Power of Etch Operator [employer] No July 29, 2023 7:49pm Advance Directive Response Recorded Date/ Time Advance Directives No August 11, 2022 11:38am Living Will No September 05, 023 6:51pm Power of Etch Operator [employer] No September 05, 2023 6:51pm Advance Directive Response Recorded Date/ Time Advance Directives No August 11, 2022 11:38am Living Will No September 23 10:17am Power of Etch Operator [employer] No September 23, 2023 10:17am Advance Directive Response Recorded Date/ Time Advance Directives No August 11, 2022 11:38am Living Will No September 29 5:44pm Power of Etch Operator [employer] No September 29, 2023 5:44pm Advance Directive Response Recorded Date/ Time Advance Directives No August 11, 2022 12:38pm Living Will No November 30, 2023 9:43am Power of Etch Operator [employer] No November 29 9:43am Date Activated Date Inactivated Comments 12/01/2023 4:07 AM Advance Directive Response Recorded Date/ Time Advance Directives No August 11, 2022 12:38pm Living Will No December 29, 2023 9:12am Power of Etch Operator [employer] No December 28 9:12am Date Activated Date Inactivated Comments 12/22/2023 4:20 PM 12/28/2023 7:20 PM Question Answer Comments Full Code Order Discussed With: Patient Date Activated Date Inactivated Comments 12/01/2023 4:07 AM 12/12/2023 6:10 PM Question Answer Comments Full Code Order Discussed With: Patient Date Activated Date Inactivated Comments 12/22/2023 4:20 PM 12/28/2023 7:20 PM Advance Directive Response Recorded Date/ Time Living Will No September 28 7:03pm Do you have a Healthcare Power of Etch Operator [employer]? No September 28, 2024 7:03pm Living Will No November 04 11:49pm Do you have a Healthcare Power of Etch Operator [employer]? No November 04, 2024 11:49pm Living Will No December 20, 2024 3:42pm Do you have a Healthcare Power of Etch Operator [employer]? No December 20, 2024 3:42pm Advance Directives No August 11, 2022 12:38pm Advance Directive Response Recorded Date/ Time Living Will No September 28 7:03pm Do you have a Healthcare Power of Etch Operator [employer]? No September 28, 2024 7:03pm Living Will No November 04 025 11:49pm Do you have a Healthcare Power of Etch Operator [employer]? No November 04, 2024 11:49pm Living Will No December 20, 2024 3:42pm Do you have a Healthcare Power of Etch Operator [employer]? No December 20, 2024 3:42pm Do you have a Healthcare Power of Etch Operator [employer]? No December 30, 2024 6:28pm Advance Directives No August 11, 2022 12:38pm Advance Directive Response Recorded Date/ Time Living Will No September 28 7:03pm Do you have a Healthcare Power of Etch Operator [employer]? No September 28, 2024 7:03pm Living Will No February 28th, 2 025 11:49pm Do you have a Healthcare Power of Etch Operator [employer]? No November 04, 2024 11:49pm Living Will No December 20, 2024 3:42pm Do you have a Healthcare Power of Etch Operator [employer]? No December 20, 2024 3:42pm Do you have a Healthcare Power of Etch Operator [employer]? No December 30, 2024 6:28pm Do you have a Healthcare Power of Etch Operator [employer]? No January 10, 2025 3:59pm Advance Directives No August 11, 2022 12:38pm Chief Complaint and Reason for Visit Chief Complaint CHEST PAIN CHEST PAIN CHEST PAIN CHEST PAIN CHEST PAIN SOB, WEAKNESS,N/T BACK Reason for Visit Chest pain Chief Complaint SOB, WEAKNESS,N/T BACK NEURO Chief Complaint SOB, WEAKNESS,N/T BACK NEURO SVT SVT SVT SVT SVT SVT SVT SVT SVT SVT Reason for Visit Ischemic cardiomyopa thy Sustained SVT Atherosclerotic heart disease of [place] coronary artery without angina pectoris Essential hypertension Hyperlipidemia Old anterior wall myocardial infarction Tobacco abuse History of non-ST elevation myocardial infarction (NSTEMI) Chief Complaint SOB, WEAKNESS,N/T BACK NEURO SVT SVT SVT SVT SVT SVT SVT SVT SVT SVT WEAKNESS Reason for Visit Ischemic cardiomyopa thy Sustained SVT Atherosclerotic heart disease of [place] coronary artery without angina pectoris Essential hypertension Hyperlipidemia Old anterior wall myocardial infarction Tobacco abuse History of non-ST elevation myocardial infarction (NSTEMI) Chief Complaint GENERAL ILLNESS general illness Chief Complaint GENERAL ILLNESS general illness throat, L shoulder pain and nauseated Chief Complaint general illness throat, L shoulder pain and nauseated chest pain Chief Complaint general illness throat, L shoulder pain and nauseated chest pain SOB leg pain Chief Complaint general illness throat, L shoulder pain and nauseated chest pain SOB leg pain leg pain ABD PAIN Reason for Visit Atherosclerosis of a rtery of extremity with rest pain Popliteal artery occlusion, right Chief Complaint general illness throat, L shoulder pain and nauseated chest pain SOB leg pain leg pain ABD PAIN PVD Peripheral vascular disease Reason for Visit Atherosclerosis of a rtery of extremity with rest pain Popliteal artery occlusion, right Chief Complaint general illness throat, L shoulder pain and nauseated chest pain SOB leg pain leg pain ABD PAIN PVD Peripheral vascular disease general illness Reason for Visit Atherosclerosis of a rtery of extremity with rest pain Popliteal artery occlusion, right Chief Complaint general illness throat, L shoulder pain and nauseated chest pain SOB leg pain leg pain ABD PAIN PVD Peripheral vascular disease general illness abd pain Reason for Visit Atherosclerosis of a rtery of extremity with rest pain Popliteal artery occlusion, right Chief Complaint general illness throat, L shoulder pain and nauseated chest pain SOB leg pain leg pain ABD PAIN PVD Peripheral vascular disease general illness abd pain ABD PAIN Reason for Visit Atherosclerosis of a rtery of extremity with rest pain Popliteal artery occlusion, right Chief Complaint general illness throat, L shoulder pain and nauseated chest pain SOB leg pain leg pain ABD PAIN PVD Peripheral vascular disease general illness abd pain ABD PAIN Shortness of breath Reason for Visit Atherosclerosis of a rtery of extremity with rest pain Popliteal artery occlusion, right Ischemic cardiomyopathy Tobacco abuse Shortness of breath Chief Complaint general illness throat, L shoulder pain and nauseated chest pain SOB leg pain leg pain ABD PAIN PVD Peripheral vascular disease general illness abd pain ABD PAIN Shortness of breath general illness Reason for Visit Atherosclerosis of a rtery of extremity with rest pain Popliteal artery occlusion, right Ischemic cardiomyopathy Tobacco abuse Shortness of breath Chief Complaint Shortness of breath general illness SOB Reason for Visit Ischemic cardiomyopa thy Tobacco abuse Shortness of breath ACS (acute coronary syndrome) Acute bronchospasm Ischemic cardiomyopathy Acute exacerbation of chronic obstructive pulmonary disease Essential hypertension Hyperlipidemia Chief Complaint Shortness of breath general illness SOB Shortness of breath Shortness of breath CP Reason for Visit Ischemic cardiomyopa thy Tobacco abuse Shortness of breath ACS (acute coronary syndrome) Acute bronchospasm Acute non-ST elevation myocardial infarction (NSTEMI) Elevated troponin GERD (gastroesophageal reflux disease) Ischemic cardiomyopathy LV (left ventricular) mural thrombus Nonischemic cardiomyopathy Acute exacerbation of chronic obstructive pulmonary disease Atherosclerotic heart disease of [place] coronary artery without angina pectoris Essential hypertension Hyperlipidemia Chief Complaint Shortness of breath general illness SOB Shortness of breath Shortness of breath CP left shoulder, rib pain Reason for Visit Ischemic cardiomyopa thy Tobacco abuse Shortness of breath GERD (gastroesophageal reflux disease) Ischemic cardiomyopathy LV (left ventricular) mural thrombus Essential hypertension Hyperlipidemia Acute exacerbation of chronic obstructive pulmonary disease Chief Complaint Shortness of breath general illness SOB Shortness of breath Shortness of breath CP left shoulder, rib pain ABD PAIN Reason for Visit Ischemic cardiomyopa thy Tobacco abuse Shortness of breath GERD (gastroesophageal reflux disease) Ischemic cardiomyopathy LV (left ventricular) mural thrombus Essential hypertension Hyperlipidemia Acute exacerbation of chronic obstructive pulmonary disease Chief Complaint general illness SOB Shortness of breath Shortness of breath CP left shoulder, rib pain ABD PAIN cp Reason for Visit GERD (gastroesophage al reflux disease) Ischemic cardiomyopathy LV (left ventricular) mural thrombus Essential hypertension Hyperlipidemia Acute exacerbation of chronic obstructive pulmonary disease Chief Complaint SOB Shortness of breath Shortness of breath CP left shoulder, rib pain ABD PAIN cp Chronic obstructive pulmonary disease, unspecified HURTS TO BREATHE Chronic obstructive pulmonary disease, unspecified Reason for Visit GERD (gastroesophage al reflux disease) Ischemic cardiomyopathy LV (left ventricular) mural thrombus Essential hypertension Hyperlipidemia Acute exacerbation of chronic obstructive pulmonary disease Bullous emphysema Ischemic cardiomyopathy COPD with asthma Tobacco abuse Chief Complaint Chronic obstructive pulmonary disease, unspecified HURTS TO BREATHE Chronic obstructive pulmonary disease, unspecified ARTERY OF EXTREMITY FU ER FU ABD PAIN Reason for Visit Bullous emphysema Ischemic cardiomyopathy COPD with asthma Tobacco abuse Popliteal artery occlusion, right Dysphagia Chief Complaint ARTERY OF EXTREMITY FU ER FU ABD PAIN CHEST PAIN Reason for Visit Popliteal artery occ lusion, right Dysphagia Chief Complaint ER FU ABD PAIN CHEST PAIN BILE DUCT ABNORMALITY SURGICAL CLEARANCE E ORDERS CHEST PAIN Reason for Visit Dysphagia Atherosclerotic heart disease of [place] coronary artery without angina pectoris NICHOLSON (dyspnea on exertion) Ischemic cardiomyopathy LV (left ventricular) mural thrombus Essential hypertension Hyperlipidemia Chief Complaint ER FU ABD PAIN CHEST PAIN BILE DUCT ABNORMALITY SURGICAL CLEARANCE E ORDERS CHEST PAIN CP CP Reason for Visit Dysphagia Atherosclerotic heart disease of [place] coronary artery without angina pectoris NICHOLSON (dyspnea on exertion) Ischemic cardiomyopathy LV (left ventricular) mural thrombus Essential hypertension Hyperlipidemia Chief Complaint ER FU ABD PAIN CHEST PAIN BILE DUCT ABNORMALITY SURGICAL CLEARANCE E ORDERS CHEST PAIN CP CP Amb Documentation Reason for Visit Dysphagia Atherosclerotic heart disease of [place] coronary artery without angina pectoris NICHOLSON (dyspnea on exertion) Ischemic cardiomyopathy LV (left ventricular) mural thrombus Essential hypertension Hyperlipidemia Chief Complaint ER FU ABD PAIN CHEST PAIN BILE DUCT ABNORMALITY SURGICAL CLEARANCE E ORDERS CHEST PAIN CP CP Amb Documentation ABD PAIN Reason for Visit Dysphagia Atherosclerotic heart disease of [place] coronary artery without angina pectoris NICHOLSON (dyspnea on exertion) Ischemic cardiomyopathy LV (left ventricular) mural thrombus Essential hypertension Hyperlipidemia Chief Complaint ER FU ABD PAIN CHEST PAIN BILE DUCT ABNORMALITY SURGICAL CLEARANCE E ORDERS CHEST PAIN CP CP Amb Documentation PREOP ABD PAIN 2 WK FU abdominal pain Reason for Visit Dysphagia Atherosclerotic heart disease of [place] coronary artery without angina pectoris NICHOLSON (dyspnea on exertion) Ischemic cardiomyopathy LV (left ventricular) mural thrombus Essential hypertension Hyperlipidemia Barretts esophagus Common bile duct obstruction Dysphagia Chief Complaint ABD PAIN CHEST PAIN BILE DUCT ABNORMALITY SURGICAL CLEARANCE E ORDERS CHEST PAIN CP CP Amb Documentation PREOP ABD PAIN 2 WK FU abdominal pain Reason for Visit Atherosclerotic hear t disease of [place] coronary artery without angina pectoris NICHOLSON (dyspnea on exertion) Ischemic cardiomyopathy LV (left ventricular) mural thrombus Essential hypertension Hyperlipidemia Barretts esophagus Common bile duct obstruction Dysphagia Barretts esophagus Chief Complaint ABD PAIN CHEST PAIN BILE DUCT ABNORMALITY SURGICAL CLEARANCE E ORDERS CHEST PAIN CP CP Amb Documentation PREOP ABD PAIN 2 WK FU abdominal pain CHEST PAIN Reason for Visit Atherosclerotic hear t disease of [place] coronary artery without angina pectoris NICHOLSON (dyspnea on exertion) Ischemic cardiomyopathy LV (left ventricular) mural thrombus Essential hypertension Hyperlipidemia Barretts esophagus Common bile duct obstruction Dysphagia Barretts esophagus Chief Complaint 2 WK FU abdominal pain CHEST PAIN BACK PAIN Reason for Visit Barretts esophagus Common bile duct obstruction Dysphagia Barretts esophagus Chief Complaint 2 WK FU abdominal pain CHEST PAIN BACK PAIN cough Reason for Visit Barretts esophagus Common bile duct obstruction Dysphagia Barretts esophagus Chief Complaint abdominal pain CHEST PAIN BACK PAIN cough WOUND Reason for Visit Barretts esophagus Chief Complaint Admit Date COPD EXACERBATION September 28, 2024 4 :40pm COPD EXACERBATION September 29, 2024 8 :11am COPD EXACERBATION September 30, 2024 7 :24am OVERDUE FOR OV October 04, 2024 9 :51am SOB November 04, 2024 10:43pm SOB December 20, 2024 3:0 1pm Reason for Visit Admit Date COPD exacerbation September 28, 2024 4 :40pm Hypoxemia September 28, 2024 4 :40pm Respiratory failure September 28, 2024 4 :40pm Ischemic cardiomyopathy October 04 9:51am LV (left ventricular) mural thrombus Esau thomason 2024 9:51am Preop cardiovascular exam October 04, 2024 9:51am Essential hypertension October 04 9:51am Hyperlipidemia October 04, 2024 9 :51am Chief Complaint Admit Date COPD EXACERBATION September 28, 2024 4 :40pm COPD EXACERBATION September 29, 2024 8 :11am COPD EXACERBATION September 30, 2024 7 :24am OVERDUE FOR OV October 04, 2024 9 :51am SOB November 04, 2024 10:43pm SOB December 20, 2024 3:0 1pm abdominal pain December 30, 2024 6:1 8pm Chief Complaint Admit Date COPD EXACERBATION September 28, 2024 4 :40pm COPD EXACERBATION September 29, 2024 8 :11am COPD EXACERBATION September 30, 2024 7 :24am OVERDUE FOR OV October 04, 2024 9 :51am SOB November 04, 2024 10:43pm SOB December 20, 2024 3:0 1pm abdominal pain December 30, 2024 6:1 8pm abd pain January 10, 2025 3:14pm Chief Complaint Admit Date COPD EXACERBATION September 28, 2024 4 :40pm COPD EXACERBATION September 29, 2024 8 :11am COPD EXACERBATION September 30, 2024 7 :24am OVERDUE FOR OV October 04, 2024 9 :51am SOB November 04, 2024 10:43pm SOB December 20, 2024 3:0 1pm abdominal pain December 30, 2024 6:1 8pm abd pain January 10, 2025 3:14pm Unable to eat January 13, 2025 10:39a m Reason for Visit Admit Date COPD exacerbation September 28, 2024 4 :40pm Hypoxemia September 28, 2024 4 :40pm Respiratory failure September 28, 2024 4 :40pm Ischemic cardiomyopathy October 04 9:51am LV (left ventricular) mural thrombus Esau 2024 9:51am Preop cardiovascular exam October 04, 2024 9:51am Essential hypertension October 04 9:51am Hyperlipidemia October 04, 2024 9 :51am Barretts esophagus January 13, 2025 10:39a m Common bile duct obstruction January 13 10:39am Dysphagia January 13, 2025 10:39a m Reason for Referral Specialty Diagnoses / Procedures Referred By Karma rothman Referred To Contact Lyndsey Acevedo, 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.[employer] [address] [place] [address] Referral ID Status Reason Start Date Expiration Date Visits Re quested Visits Authorized [id number] Closed 1 1 Specialty Diagnoses / Procedures Referred By Karma rothman Referred To Contact CT IMAGING Diagnoses Encounter for screening for lung cancer Chronic cough Chronic bronchitis, unspecified chronic bronchitis type (HCC) Smoker Procedures CT CHEST WO IVCON DIAGNOSTIC COMPUTED TOMOGRAPHY THORAX W/O CNTRST Nora Crespo, 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.[employer] [address] [place] [address] [place] [address] Referral ID Status Reason Start Date Expiration Date Visits Requested Visits Authorized [id number] Authorized Auto-Generat ed Referral 05/13/2023 06/12/2023 1 1 Specialty Diagnoses / Procedures Referred By Contac t Referred To Contact CT IMAGING Diagnoses Infection in abdomen (HCC) Procedures CT ABD/PEL W IVCON CT ABD & PELVIS W/CONTRAST Darrell Tejada MD [address] [place] [address] [place] [address] Referral ID Status Reason Start Date Expiration Date Visits Requested Visits Authorized [id number] Authorized Auto-Generat ed Referral 01/05/2024 02/03/2025 1 1 Specialty Diagnoses / Procedures Referred By Contac t Referred To Contact Podiatry Diagnoses Gait instability Ankle weakness Peripheral neuropathic pain Procedures CONSULT TO PODIATRY OFFICE/OUTPATIENT [facility] 60 MINUTES Gabriel Galvan MD [address] [place] [address] Scot Santos [address] [place] [address] Referral ID Status Reason Start Date Expiration Date Visits Requested Visits Authorized [id number] Authorized PCP Requested Referral 11/25/2023 11/24/2024 1 1 Specialty Diagnoses / Procedures Referred By Contac t Referred To Contact CT IMAGING Diagnoses Infection in abdomen (HCC) Procedures CT ABDOMEN WO IVCON CT ABDOMEN W/O CONTRAST Darrell Tejada MD [address] [place] [address] Ct Imaging [id number] Referral ID Status Reason Start Date Expiration Date V isits Requested Visits Authorized [id number] Closed Auto-Generate d Referral 01/20/2024 02/19/2024 1 1 Specialty Diagnoses / Procedures Referred By Contac t Referred To Contact CT IMAGING Diagnoses Generalized abdominal pain Procedures CT ABD/PEL WO IVCON CT ABD & PELVIS W/O CONTRAST Nora Crespo APRN.[employer] [address] [place] [address] Ct Imaging [place] [address] Referral ID Status Reason Start Date Expiration Date Visits Requested Visits Authorized [id number] Authorized Auto-Generat ed Referral 03/14/2024 04/13/2025 1 1 Referral ID Status Reason Start Date Expiration Date V isits Requested Visits Authorized [id number] Closed Auto-Generat ed Referral Patient Cleared - Admin/Chairm an/Director advise to proceed or did not respond 03/18/2024 05/17/2024 2 2 Specialty Diagnoses / Procedures Referred By Contac t Referred To Contact General Surgery Diagnoses Hiatal hernia Generalized abdominal pain History of abdominal abscess Procedures CONSULT TO GENERAL SURGERY OFFICE/OUTPATIENT [facility] 60 MINUTES Nora Crespo APRN.[facility] [address] [place] [address] Referral ID Status Reason Start Date Expiration Date Visits Requested Visits Authorized [id number] Authorized PCP Requested Referral 04/11/2024 04/11/2025 1 1 Specialty Diagnoses / Procedures Referred By Contac t Referred To Contact Gastroenterology Diagnoses Hiatal hernia Generalized abdominal pain History of abdominal abscess Procedures CONSULT TO GASTROENTEROLOGY OFFICE/OUTPATIENT [facility] 60 MINUTES Nora Crespo APRN.[facility] [address] [place] [address] Referral ID Status Reason Start Date Expiration Date Visits Requested Visits Authorized [id number] Authorized PCP Requested Referral 04/11/2024 04/11/2025 1 1 Specialty Diagnoses / Procedures Referred By Contac t Referred To Contact General Surgery Diagnoses Hiatal hernia Generalized abdominal pain History of abdominal abscess Procedures CONSULT TO GENERAL SURGERY OFFICE/OUTPATIENT [facility] 60 MINUTES Darrell Tejada MD [address] [place] [address] Scot Mcduffie MD [address] [place] [address] Referral ID Status Reason Start Date Expiration Date Visits Requested Visits Authorized [id number] Authorized PCP Requested Referral 04/25/2024 04/25/2025 1 1 Specialty Diagnoses / Procedures Referred By Contac t Referred To Contact Podiatry Diagnoses Chronic pain of both ankles Chronic pain of both feet Procedures CONSULT TO PODIATRY OFFICE/OUTPATIENT [facility] 60 MINUTES Gabriel Galvan MD [address] [place] [address] CheryleScot mayer [address] [place] [address] Referral ID Status Reason Start Date Expiration Date Visits Requested Visits Authorized [id number] Authorized PCP Requested Referral 09/14/2024 09/14/2025 1 1 Health Concerns Infection Onset Date Last Indicated Resolved Time COVID-19 Rule-Out 11/30/2023 11/30/2023 11/30/2023 11:19 PM EDT Additional Source Comments INFORMATION SOURCE (unrecogn ized section and content) DATE CREATED AUTHOR 09/15/2019 [facility] DATE CREATED AUTHOR AUTHOR'S ORGANIZ ATION 11/23/2019 [facility] DATE CREATED AUTHOR AUTHOR'S ORGANIZ ATION 07/29/2021 [facility] DATE CREATED AUTHOR AUTHOR'S ORGANIZ ATION 12/20/2023 [facility] ([place]) DATE CREATED AUTHOR AUTHOR'S ORGANIZ ATION 01/07/2024 [facility] ([place]) DATE CREATED AUTHOR AUTHOR'S ORGANIZ ATION 01/26/2024 [facility] DATE CREATED AUTHOR AUTHOR'S ORGANIZ ATION 02/01/2025 [facility] DATE CREATED AUTHOR AUTHOR'S ORGANIZ ATION 05/23/2025 [facility] DATE CREATED AUTHOR AUTHOR'S ORGANIZ ATION 05/26/2025 [facility] Reason for Visit (unrecogniz ed section and content) Reason Comments Radiology CT Specialty Diagnoses / Procedures Referred By Contac t Referred To Contact CT IMAGING Diagnoses Generalized abdominal pain Procedures CT ABD/PEL WO IVCON CT ABD & PELVIS W/O CONTRAST Nora Crespo APRN.[employer] [address] [place] [address] [place] [address] Referral ID Status Reason Start Date Expiration Date V isits Requested Visits Authorized [id number] Closed Auto-Generat ed Referral Patient Cleared - Admin/Chairm an/Director advise to proceed or did not respond 03/18/2024 05/17/2024 2 2 Reason Comments Altered Mental Status Reason Comments Tachycardia Reason Comments Fall Reason [...] NERVE CONDUCTION STUDIES 9-10 STUDIES Nora Crespo APRN.[place] [id number] [place] [phone] [facility] [place] [address] [place] [address] Referral ID Status Reason Start Date Expiration Date V isits Requested Visits Authorized [id number] Closed Auto-Generate d Referral 04/15/2023 04/15/2024 1 1 Reason Comments Results EMG Reason Comments Radiology US Specialty Diagnoses / Procedures Referred By Karma t Referred To Contact US IMAGING Diagnoses Lower abdominal pain Abdominal aneurysm (HCC) Dizziness Procedures US ABD AORTA US RETROPERITONEAL REAL TIME W/IMAGE LIMITED Nora Crespo APRN.[employer] [address] [place] [address] Us Imaging [place] [address] Referral ID Status Reason Start Date Expiration Date V isits Requested Visits Authorized [id number] Closed Auto-Generate d Referral 09/23/2022 10/23/2023 1 1 Reason Onset Date Comments Population Health Navigation Outreach 11/19/2023 [employer]s Reason Comments Radiology XR Reason Comments CoPat Start Reason Comments Surgical Followup Reason Comments Follow Up Specialty Diagnoses / Procedures Referred By Contac t Referred To Contact CT IMAGING Diagnoses Infection in abdomen (HCC) Procedures CT ABDOMEN WO IVCON CT ABDOMEN W/O CONTRAST Darrell Tejada MD [address] [place] [address] [place] [address] Referral ID Status Reason Start Date Expiration Date V isits Requested Visits Authorized [id number] Closed Auto-Generate d Referral 01/20/2024 02/19/2024 1 1 Reason Comments Contrast allergy Reason Comments Abdominal Pain Has seen Dr. Martinez in past.Is requesting a 2nd opinion.Gallbladder has been removed and not feeling any better since then Reason Comments Recheck Reason Comments Consult Abd pain s/p lap cho le Specialty Diagnoses / Procedures Referred By Contac t Referred To Contact General Surgery Diagnoses Hiatal hernia Generalized abdominal pain History of abdominal abscess Procedures CONSULT TO GENERAL SURGERY OFFICE/OUTPATIENT [facility] 60 MINUTES Nora Crespo APRN.[employer] [address] [place] [address] Referral ID Status Reason Start Date Expiration Date V isits Requested Visits Authorized [id number] Closed PCP Requested Referral 04/11/2024 04/11/2025 1 1 Reason Onset Date Comments Refill Request 05/24/2024 Reason Comments Recheck or respiratory failu re and verify medications Medication Request is asking for omepra zole, is needing a refill on pain medications.Requesting a written script for liquid national supplement due to hiatal hernia is not eating very well and large pull's quantity of 100 if possible Reason Comments Cough Chest congestion, he adache, SOB, wheeze, sore throat x 4 days Reason Comments Reflux Reason Comments Barky Cough With wheeze, SOB & s ore throat x 2-3 days Reason Comments F/U 3 Month Reason Onset Date Comments Transition Of Care 10/03/2024 [facility] Discharge 09/30/24 Reason Comments Patient Question Reason Onset Date Comments Transition Of Care 10/10/2024 [facility] Folow-up Day 10 Reason Comments Outpatient Endoscopy Reason Onset Date Comments Transition Of Care 10/26/2024 [facility]- Follow-up Day 26 Reason Comments Form: [facility] Reason Onset Date Comments Allied Health Visit 11/21/2024 Medication A dherence Outreach Reason Onset Date Comments Population Health Navigation Outreach 12/06/2024 [employer] work[employer] goran Reason Onset Date Comments ACM MANUELA RN 12/22/2024 Chart review review per request of payor Reason Comments Hospital F/U Reason Onset Date Comments ACM MANUELA RN 01/11/2025 Chart review per payor request Reason Comments Forms [facility]ra martinez [facility] living form Reason Comments Appointment Hospital f/u Reason Comments Patient Update Reason Comments New Patient Reason Comments Appointment New appt date/time Reason Comments Follow Up Medication Reason Onset Date Comments Refill Request 04/13/2025 Reason Onset Date Comments Refill Request 05/12/2025 Reason Comments Cough Chest congestion x 2 days Scheduled Active and Recently Administ ered Medications (unrecognized section and content) Medication Order 06/13/2021 06/14/2021 06/15/2021 0.9 % sodium chloride bolus (COMPLETED) 1,000 mL, IntraVENous, at 2,000 mL/hr, Administer over 0.5 Hours, ONCE, On Thu06/14/21 at 1040, For 1 dose 1203 (New Bag - Provider: Shobha Mcdermott RN)1233 (Stopped - Provider: Shobha Mcdermott RN) dexamethasone (DECADRON) tablet 6 mg 6 mg, Oral, DAILY, First dose on Thu06/15/21 at 0900, For 10 doses 0900 (Due) dexamethasone (PF) (DECADRON) injection 6 mg (COMPLETED) 6 mg, IntraVENous, ONCE, On Thu06/14/21 at 1400, For 1 dose 1504 (Given - Provider: Shobha Mcdermott RN) enoxaparin (LOVENOX) injection 30 mg 30 mg, SubCUTAneous, 2 TIMES DAILY, First dose on Thu06/14/21 at 1800 1800 (Due) 0900 (Due)2100 (Due) ondansetron (ZOFRAN) injection 4 mg (COMPLETED) 4 mg, IntraVENous, ONCE, On Thu06/14/21 at 1040, For 1 dose 1202 (Given - Provider: Shobha Mcdermott RN) remdesivir 200 mg in sodium chloride 0.9 % 250 mL IVPB (COMPLETED) 200 mg, IntraVENous, at 500 mL/hr, Administer over 30 Minutes, ONCE, On Thu06/14/21 at 1630, For 1 dose 1717 (New Bag - Provider: Edna Chen RN)1747 (Stopped - Provider: Edna Chen RN) sodium chloride flush 0.9 % injection 5-40 mL 5-40 mL, IntraVENous, EVERY 12 HOURS SCHEDULED (2 times per day), First dose on Thu06/14/21 at 2100, For Line Patency: Peripheral IV = 5 [...] Midline or Central Line = 20 mL/lumen 2100 (Due) 0900 (Due)2100 (Due) PRN Medication Order 06/13/2021 06/14/2021 06/15/2021 0.9 [...] on Thu06/14/21 at 1037, For 1 dose, SHOBHA MCDERMOTT: cabinet override 1108 (Given - Provider: Raj Mcdermott RN - Comment: per physician) Linked Groups [...] IntraVENous, EVERY 24 HOURS, First dose on Thu06/16/21 at 2000, For 10 doses 214 (Given - Provider: Tita Singer RN) 2032 (Given - Provider: Tita Singer RN) 1999 (Due) dilTIAZem (CARDIZEM) tablet 30 mg (CANCELED) 30 mg, Oral, EVERY 8 HOURS SCHEDULED (3 times per day), First dose on Thu06/16/21 at 0330 0450 (Given - Provider: Tita Singer RN) enoxaparin (LOVENOX) injection 30 mg 30 mg, SubCUTAneous, 2 TIMES DAILY, First dose (after last modification) on Thu06/16/21 at 0900 0956 (Given - Provider: Layla Triana RN)2148 (Given - Provider: Tita Singer RN) 0853 (Given - Provider: Bimal Ambriz RN)2032 (Given - Provider: Tita Singer RN) 0951 (Given - Provider: Bimal Ambriz, WENDY)2100 (Due) escitalopram (LEXAPRO) tablet 10 mg 10 mg, Oral, DAILY, First dose on Thu06/17/21 at 1200 1147 (Given - Provider: Bimal Ambriz, WENDY) 0951 (Given - Provider: Bimal Ambriz, RN) lisinopril (PRINIVIL;ZESTRIL) tablet 20 mg 20 mg, Oral, 2 TIMES DAILY WITH MEALS, First dose on Thu06/16/21 at 1115 1230 (Given - Provider: Layla Triana RN)1807 (Given - Provider: Layla Triana RN) 0853 (Given - Provider: Bimal Ambriz RN)1659 (Given - Provider: Bimal Ambriz RN) 0951 (Given - Provider: Bimal Ambriz RN)1700 (Due) LORazepam (ATIVAN) tablet 1 mg 1 mg, Oral, 2 TIMES DAILY, First dose on 06/16/21 at 1045 1101 (Given - Provider: Layla Triana RN)1807 (Given - Provider: Layla Triana RN) 0853 (Given - Provider: Bimal Ambriz RN)203 (Given - Provider: Tita Singer RN) 0951 (Given - Provider: Bimal Ambriz RN)2000 (Due) metoprolol succinate (TOPROL XL) extended release tablet 50 mg 50 mg, Oral, DAILY, First dose on 06/16/21 at 1315, Hold for HR<60 or BP<100 syst. Do not crush or chew. 1355 (Given - Provider: Layla Triana RN) 0853 (Given - Provider: Bimal Ambriz RN) 0951 (Given - Provider: Bimal Ambriz RN) sodium chloride flush 0.9 % [...] Tita Singer, WENDY) 0853 (Given - Provider: Bimal Ambriz RN)203 (Given - Provider: Tita Singer, WENDY) 0951 (Given - Provider: Bimal Ambriz, RN)2100 (Due) PRN Medication Order 06/16/2021 06/17/2021 [...] from all sources in 24 hours. guaiFENesin-dextromethorp dye (ROBITUSSIN DM) 100-10 MG/5ML syrup 5 mL 5 mL, Oral, EVERY 4 HOURS PRN, Cough, Starting on 06/16/21 at 0303 0450 (Given - Provider: Tita Singer RN)1001 (Given - Provider: Layla Triana RN)1807 (Given - Provider: Layla Triana RN) 1146 (Given - Provider: Bimal Ambriz, WENDY) 0438 (Given - Provider: Tita Singer RN) ipratropium-albuterol (DUONEB) nebulizer solution 1 ampule 1 ampule, Inhalation, EVERY 4 HOURS PRN, Shortness of Breath, Starting on 06/16/21 at 2130 2153 (Given - Provider: Natalia Portillo RCP) 1803 (Given - Provider: Nery Hyde RCP) melatonin tablet 5 mg 5 mg, Oral, NIGHTLY PRN, Sleep, Starting on 06/16/21 at 2150 2150 (Given - Provider: Tita Singer RN) 2032 (Given - Provider: Tita Singer, RN) ondansetron (ZOFRAN) injection 4 mg 4 mg, IntraVENous, EVERY 6 HOURS PRN, Nausea, Vomiting, Starting on 06/16/21 at 1020 1101 (Given - Provider: Layla Triana, RN) 1659 (Given - Provider: Bimal Ambriz, RN) perflutren lipid microspheres (DEFINITY) injection 1.65 [...] g, Oral, DAILY PRN, Constipation, Starting on 06/16/21 at 0302, First line therapy for constipation sodium chloride flush 0.9 % injection 5-40 mL 5-40 mL, IntraVENous, PRN, Line Care, After every IV line use, Starting on 06/16/21 at 0302, For Line Patency: Peripheral [...] 5-40 mL, IntraVENous, PRN, Line Care, Per Music Industry Intern Request, Starting on 06/16/21 at 0303, For 72 hours, May use order for Line Care after every IV line use and Agitated Saline Bubble Study. Administration for Bubble Study per thread winder automatic request for only. Remove 1 mL 0.9% [...] Dispensed Refills Start Date End Da te metoprolol succinate (TOPROL XL) 50 MG extended release tablet Take 1 tablet by mouth daily 30 tablet 0 06/19/2021 escitalopram (LEXAPRO) 10 MG tablet Take 1 tablet by mouth daily 30 tablet 0 06/19/2021 Prescription Sig Dispensed Refills Start Date End [...] skin daily 30 patch 0 07/26/2021 08/25/2021 Goals (unrecognized section and content) Goals may be documented in a n alternate sectionGoals may be documented in an alternate sectionGoals may be documented in an alternate sectionGoals may be documented in an alternate sectionGoals may be documented in an alternate sectionGoals may be documented in an alternate sectionGoals may be documented in an alternate sectionGoals may be documented in an alternate sectionGoals may be documented in an alternate sectionGoals may be documented in an alternate sectionGoals may be documented in an alternate sectionGoals may be documented in an alternate sectionGoals may be documented in an alternate sectionGoals may be documented in an alternate sectionGoals may be documented in an alternate sectionGoals may be documented in an alternate sectionGoals may be documented in an alternate sectionGoals may be documented in an alternate section No data available for this section No data available for this section Source Comments (unrecognize d section and content) In the event this informatio n is protected by the Federal Confidentiality of Alcohol and Drug Abuse Patient Records regulations: The Federal rules restrict any use of the information to criminally investigate or prosecute any alcohol or drug abuse patient.[facility] the event this information is protected by the Federal Confidentiality of Alcohol and Drug Abuse Patient Records regulations: The Federal rules restrict any use of the information to criminally investigate or prosecute any alcohol or drug abuse patient.[facility]In the event this information is protected by the Federal Confidentiality of Alcohol and Drug Abuse Patient Records regulations: The Federal rules restrict any use of the information to criminally investigate or prosecute any alcohol or drug abuse patient.[facility]In the event this information is protected by the Federal Confidentiality of Alcohol and Drug Abuse Patient Records regulations: The Federal rules restrict any use of the information to criminally investigate or prosecute any alcohol or drug abuse patient.[facility]In the event this information is protected by the Federal Confidentiality of Alcohol and Drug Abuse Patient Records regulations: The Federal rules restrict any use of the information to criminally investigate or prosecute any alcohol or drug abuse patient.[facility]In the event this information is protected by the Federal Confidentiality of Alcohol and Drug Abuse Patient Records regulations: The Federal rules restrict any use of the information to criminally investigate or prosecute any alcohol or drug abuse patient.[facility]In the event this information is protected by the Federal Confidentiality of Alcohol and Drug Abuse Patient Records regulations: The Federal rules restrict any use of the information to criminally investigate or prosecute any alcohol or drug abuse patient.[facility]In the event this information is protected by the Federal Confidentiality of Alcohol and Drug Abuse Patient Records regulations: The Federal rules restrict any use of the information to criminally investigate or prosecute any alcohol or drug abuse patient.[facility]In the event this information is protected by the Federal Confidentiality of Alcohol and Drug Abuse Patient Records regulations: The Federal rules restrict any use of the information to criminally investigate or prosecute any alcohol or drug abuse patient.[facility]In the event this information is protected by the Federal Confidentiality of Alcohol and Drug Abuse Patient Records regulations: The Federal rules restrict any use of the information to criminally investigate or prosecute any alcohol or drug abuse patient.[facility]In the event this information is protected by the Federal Confidentiality of Alcohol and Drug Abuse Patient Records regulations: The Federal rules restrict any use of the information to criminally investigate or prosecute any alcohol or drug abuse patient.[facility]In the event this information is protected by the Federal Confidentiality of Alcohol and Drug Abuse Patient Records regulations: The Federal rules restrict any use of the information to criminally investigate or prosecute any alcohol or drug abuse patient.[facility]In the event this information is protected by the Federal Confidentiality of Alcohol and Drug Abuse Patient Records regulations: The Federal rules restrict any use of the information to criminally investigate or prosecute any alcohol or drug abuse patient.[facility]In the event this information is protected by the Federal Confidentiality of Alcohol and Drug Abuse Patient Records regulations: The Federal rules restrict any use of the information to criminally investigate or prosecute any alcohol or drug abuse patient.[facility] HospitalIn the event this information is protected by the Federal Confidentiality of Alcohol and Drug Abuse Patient Records regulations: The Federal rules restrict any use of the information to criminally investigate or prosecute any alcohol or drug abuse patient.[facility]In the event this information is protected by the Federal Confidentiality of Alcohol and Drug Abuse Patient Records regulations: The Federal rules restrict any use of the information to criminally investigate or prosecute any alcohol or drug abuse patient.[facility]In the event this information is protected by the Federal Confidentiality of Alcohol and Drug Abuse Patient Records regulations: The Federal rules restrict any use of the information to criminally investigate or prosecute any alcohol or drug abuse patient.[facility] HospitalIn the event this information is protected by the Federal Confidentiality of Alcohol and Drug Abuse Patient Records regulations: The Federal rules restrict any use of the information to criminally investigate or prosecute any alcohol or drug abuse patient.[facility] HospitalIn the event this information is protected by the Federal Confidentiality of Alcohol and Drug Abuse Patient Records regulations: The Federal rules restrict any use of the information to criminally investigate or prosecute any alcohol or drug abuse patient.[facility] HospitalIn the event this information is protected by the Federal Confidentiality of Alcohol and Drug Abuse Patient Records regulations: The Federal rules restrict any use of the information to criminally investigate or prosecute any alcohol or drug abuse patient.[facility] HospitalIn the event this information is protected by the Federal Confidentiality of Alcohol and Drug Abuse Patient Records regulations: The Federal rules restrict any use of the information to criminally investigate or prosecute any alcohol or drug abuse patient.[facility] HospitalIn the event this information is protected by the Federal Confidentiality of Alcohol and Drug Abuse Patient Records regulations: The Federal rules restrict any use of the information to criminally investigate or prosecute any alcohol or drug abuse patient.[facility] HospitalIn the event this information is protected by the Federal Confidentiality of Alcohol and Drug Abuse Patient Records regulations: The Federal rules restrict any use of the information to criminally investigate or prosecute any alcohol or drug abuse patient.[facility] HospitalIn the event this information is protected by the Federal Confidentiality of Alcohol and Drug Abuse Patient Records regulations: The Federal rules restrict any use of the information to criminally investigate or prosecute any alcohol or drug abuse patient.[facility] HospitalIn the event this information is protected by the Federal Confidentiality of Alcohol and Drug Abuse Patient Records regulations: The Federal rules restrict any use of the information to criminally investigate or prosecute any alcohol or drug abuse patient.[facility] HospitalIn the event this information is protected by the Federal Confidentiality of Alcohol and Drug Abuse Patient Records regulations: The Federal rules restrict any use of the information to criminally investigate or prosecute any alcohol or drug abuse patient.[facility] HospitalIn the event this information is protected by the Federal Confidentiality of Alcohol and Drug Abuse Patient Records regulations: The Federal rules restrict any use of the information to criminally investigate or prosecute any alcohol or drug abuse patient.[facility] HospitalIn the event this information is protected by the Federal Confidentiality of Alcohol and Drug Abuse Patient Records regulations: The Federal rules restrict any use of the information to criminally investigate or prosecute any alcohol or drug abuse patient.[facility] HospitalIn the event this information is protected by the Federal Confidentiality of Alcohol and Drug Abuse Patient Records regulations: The Federal rules restrict any use of the information to criminally investigate or prosecute any alcohol or drug abuse patient.[facility] HospitalIn the event this information is protected by the Federal Confidentiality of Alcohol and Drug Abuse Patient Records regulations: The Federal rules restrict any use of the information to criminally investigate or prosecute any alcohol or drug abuse patient.[facility] HospitalIn the event this information is protected by the Federal Confidentiality of Alcohol and Drug Abuse Patient Records regulations: The Federal rules restrict any use of the information to criminally investigate or prosecute any alcohol or drug abuse patient.[facility] HospitalIn the event this information is protected by the Federal Confidentiality of Alcohol and Drug Abuse Patient Records regulations: The Federal rules restrict any use of the information to criminally investigate or prosecute any alcohol or drug abuse patient.[facility] HospitalIn the event this information is protected by the Federal Confidentiality of Alcohol and Drug Abuse Patient Records regulations: The Federal rules restrict any use of the information to criminally investigate or prosecute any alcohol or drug abuse patient.[facility] HospitalIn the event this information is protected by the Federal Confidentiality of Alcohol and Drug Abuse Patient Records regulations: The Federal rules restrict any use of the information to criminally investigate or prosecute any alcohol or drug abuse patient.[facility] HospitalIn the event this information is protected by the Federal Confidentiality of Alcohol and Drug Abuse Patient Records regulations: The Federal rules restrict any use of the information to criminally investigate or prosecute any alcohol or drug abuse patient.[facility] HospitalIn the event this information is protected by the Federal Confidentiality of Alcohol and Drug Abuse Patient Records regulations: The Federal rules restrict any use of the information to criminally investigate or prosecute any alcohol or drug abuse patient.[facility] HospitalIn the event this information is protected by the Federal Confidentiality of Alcohol and Drug Abuse Patient Records regulations: The Federal rules restrict any use of the information to criminally investigate or prosecute any alcohol or drug abuse patient.[facility] HospitalIn the event this information is protected by the Federal Confidentiality of Alcohol and Drug Abuse Patient Records regulations: The Federal rules restrict any use of the information to criminally investigate or prosecute any alcohol or drug abuse patient.[facility] HospitalIn the event this information is protected by the Federal Confidentiality of Alcohol and Drug Abuse Patient Records regulations: The Federal rules restrict any use of the information to criminally investigate or prosecute any alcohol or drug abuse patient.[facility] HospitalIn the event this information is protected by the Federal Confidentiality of Alcohol and Drug Abuse Patient Records regulations: The Federal rules restrict any use of the information to criminally investigate or prosecute any alcohol or drug abuse patient.[facility] HospitalIn the event this information is protected by the Federal Confidentiality of Alcohol and Drug Abuse Patient Records regulations: The Federal rules restrict any use of the information to criminally investigate or prosecute any alcohol or drug abuse patient.[facility] HospitalIn the event this information is protected by the Federal Confidentiality of Alcohol and Drug Abuse Patient Records regulations: The Federal rules restrict any use of the information to criminally investigate or prosecute any alcohol or drug abuse patient.[facility] HospitalIn the event this information is protected by the Federal Confidentiality of Alcohol and Drug Abuse Patient Records regulations: The Federal rules restrict any use of the information to criminally investigate or prosecute any alcohol or drug abuse patient.[facility] HospitalIn the event this information is protected by the Federal Confidentiality of Alcohol and Drug Abuse Patient Records regulations: The Federal rules restrict any use of the information to criminally investigate or prosecute any alcohol or drug abuse patient.[facility] HospitalIn the event this information is protected by the Federal Confidentiality of Alcohol and Drug Abuse Patient Records regulations: The Federal rules restrict any use of the information to criminally investigate or prosecute any alcohol or drug abuse patient.[facility] HospitalIn the event this information is protected by the Federal Confidentiality of Alcohol and Drug Abuse Patient Records regulations: The Federal rules restrict any use of the information to criminally investigate or prosecute any alcohol or drug abuse patient.[facility] HospitalIn the event this information is protected by the Federal Confidentiality of Alcohol and Drug Abuse Patient Records regulations: The Federal rules restrict any use of the information to criminally investigate or prosecute any alcohol or drug abuse patient.[facility] HospitalIn the event this information is protected by the Federal Confidentiality of Alcohol and Drug Abuse Patient Records regulations: The Federal rules restrict any use of the information to criminally investigate or prosecute any alcohol or drug abuse patient.[facility] HospitalIn the event this information is protected by the Federal Confidentiality of Alcohol and Drug Abuse Patient Records regulations: The Federal rules restrict any use of the information to criminally investigate or prosecute any alcohol or drug abuse patient.[facility] HospitalIn the event this information is protected by the Federal Confidentiality of Alcohol and Drug Abuse Patient Records regulations: The Federal rules restrict any use of the information to criminally investigate or prosecute any alcohol or drug abuse patient.[facility] HospitalIn the event this information is protected by the Federal Confidentiality of Alcohol and Drug Abuse Patient Records regulations: The Federal rules restrict any use of the information to criminally investigate or prosecute any alcohol or drug abuse patient.[facility] HospitalIn the event this information is protected by the Federal Confidentiality of Alcohol and Drug Abuse Patient Records regulations: The Federal rules restrict any use of the information to criminally investigate or prosecute any alcohol or drug abuse patient.[facility] HospitalIn the event this information is protected by the Federal Confidentiality of Alcohol and Drug Abuse Patient Records regulations: The Federal rules restrict any use of the information to criminally investigate or prosecute any alcohol or drug abuse patient.[facility] HospitalIn the event this information is protected by the Federal Confidentiality of Alcohol and Drug Abuse Patient Records regulations: The Federal rules restrict any use of the information to criminally investigate or prosecute any alcohol or drug abuse patient.[facility] HospitalIn the event this information is protected by the Federal Confidentiality of Alcohol and Drug Abuse Patient Records regulations: The Federal rules restrict any use of the information to criminally investigate or prosecute any alcohol or drug abuse patient.[facility] HospitalIn the event this information is protected by the Federal Confidentiality of Alcohol and Drug Abuse Patient Records regulations: The Federal rules restrict any use of the information to criminally investigate or prosecute any alcohol or drug abuse patient.[facility] HospitalIn the event this information is protected by the Federal Confidentiality of Alcohol and Drug Abuse Patient Records regulations: The Federal rules restrict any use of the information to criminally investigate or prosecute any alcohol or drug abuse patient.[facility] HospitalIn the event this information is protected by the Federal Confidentiality of Alcohol and Drug Abuse Patient Records regulations: The Federal rules restrict any use of the information to criminally investigate or prosecute any alcohol or drug abuse patient.[facility] HospitalIn the event this information is protected by the Federal Confidentiality of Alcohol and Drug Abuse Patient Records regulations: The Federal rules restrict any use of the information to criminally investigate or prosecute any alcohol or drug abuse patient.[facility] HospitalIn the event this information is protected by the Federal Confidentiality of Alcohol and Drug Abuse Patient Records regulations: The Federal rules restrict any use of the information to criminally investigate or prosecute any alcohol or drug abuse patient.[facility] HospitalIn the event this information is protected by the Federal Confidentiality of Alcohol and Drug Abuse Patient Records regulations: The Federal rules restrict any use of the information to criminally investigate or prosecute any alcohol or drug abuse patient.[facility] HospitalIn the event this information is protected by the Federal Confidentiality of Alcohol and Drug Abuse Patient Records regulations: The Federal rules restrict any use of the information to criminally investigate or prosecute any alcohol or drug abuse patient.[facility] HospitalIn the event this information is protected by the Federal Confidentiality of Alcohol and Drug Abuse Patient Records regulations: The Federal rules restrict any use of the information to criminally investigate or prosecute any alcohol or drug abuse patient.[facility] HospitalIn the event this information is protected by the Federal Confidentiality of Alcohol and Drug Abuse Patient Records regulations: The Federal rules restrict any use of the information to criminally investigate or prosecute any alcohol or drug abuse patient.[facility] HospitalIn the event this information is protected by the Federal Confidentiality of Alcohol and Drug Abuse Patient Records regulations: The Federal rules restrict any use of the information to criminally investigate or prosecute any alcohol or drug abuse patient.[facility]In the event this information is protected by the Federal Confidentiality of Alcohol and Drug Abuse Patient Records regulations: The Federal rules restrict any use of the information to criminally investigate or prosecute any alcohol or drug abuse patient.[facility] HospitalIn the event this information is protected by the Federal Confidentiality of Alcohol and Drug Abuse Patient Records regulations: The Federal rules restrict any use of the information to criminally investigate or prosecute any alcohol or drug abuse patient.[facility]In the event this information is protected by the Federal Confidentiality of Alcohol and Drug Abuse Patient Records regulations: The Federal rules restrict any use of the information to criminally investigate or prosecute any alcohol or drug abuse patient.[facility] HospitalIn the event this information is protected by the Federal Confidentiality of Alcohol and Drug Abuse Patient Records regulations: The Federal rules restrict any use of the information to criminally investigate or prosecute any alcohol or drug abuse patient.[facility] HospitalIn the event this information is protected by the Federal Confidentiality of Alcohol and Drug Abuse Patient Records regulations: The Federal rules restrict any use of the information to criminally investigate or prosecute any alcohol or drug abuse patient.[facility]In the event this information is protected by the Federal Confidentiality of Alcohol and Drug Abuse Patient Records regulations: The Federal rules restrict any use of the information to criminally investigate or prosecute any alcohol or drug abuse patient.[facility]In the event this information is protected by the Federal Confidentiality of Alcohol and Drug Abuse Patient Records regulations: The Federal rules restrict any use of the information to criminally investigate or prosecute any alcohol or drug abuse patient.[facility]In the event this information is protected by the Federal Confidentiality of Alcohol and Drug Abuse Patient Records regulations: The Federal rules restrict any use of the information to criminally investigate or prosecute any alcohol or drug abuse patient.[facility] HospitalIn the event this information is protected by the Federal Confidentiality of Alcohol and Drug Abuse Patient Records regulations: The Federal rules restrict any use of the information to criminally investigate or prosecute any alcohol or drug abuse patient.[facility]In the event this information is protected by the Federal Confidentiality of Alcohol and Drug Abuse Patient Records regulations: The Federal rules restrict any use of the information to criminally investigate or prosecute any alcohol or drug abuse patient.[facility]In the event this information is protected by the Federal Confidentiality of Alcohol and Drug Abuse Patient Records regulations: The Federal rules restrict any use of the information to criminally investigate or prosecute any alcohol or drug abuse patient.[facility]In the event this information is protected by the Federal Confidentiality of Alcohol and Drug Abuse Patient Records regulations: The Federal rules restrict any use of the information to criminally investigate or prosecute any alcohol or drug abuse patient.[facility]In the event this information is protected by the Federal Confidentiality of Alcohol and Drug Abuse Patient Records regulations: The Federal rules restrict any use of the information to criminally investigate or prosecute any alcohol or drug abuse patient.[facility]In the event this information is protected by the Federal Confidentiality of Alcohol and Drug Abuse Patient Records regulations: The Federal rules restrict any use of the information to criminally investigate or prosecute any alcohol or drug abuse patient.[facility]In the event this information is protected by the Federal Confidentiality of Alcohol and Drug Abuse Patient Records regulations: The Federal rules restrict any use of the information to criminally investigate or prosecute any alcohol or drug abuse patient.[facility]In the event this information is protected by the Federal Confidentiality of Alcohol and Drug Abuse Patient Records regulations: The Federal rules restrict any use of the information to criminally investigate or prosecute any alcohol or drug abuse patient.[facility] HospitalIn the event this information is protected by the Federal Confidentiality of Alcohol and Drug Abuse Patient Records regulations: The Federal rules restrict any use of the information to criminally investigate or prosecute any alcohol or drug abuse patient.[facility] the event this information is protected by the Federal Confidentiality of Alcohol and Drug Abuse Patient Records regulations: The Federal rules restrict any use of the information to criminally investigate or prosecute any alcohol or drug abuse patient.[facility] Hospital[facility] the event this information is protected by the Federal Confidentiality of Alcohol and Drug Abuse Patient Records regulations: The Federal rules restrict any use of the information to criminally investigate or prosecute any alcohol or drug abuse patient.[facility] Hospital[facility] the event this information is protected by the Federal Confidentiality of Alcohol and Drug Abuse Patient Records regulations: The Federal rules restrict any use of the information to criminally investigate or prosecute any alcohol or drug abuse patient.[facility] the event this information is protected by the Federal Confidentiality of Alcohol and Drug Abuse Patient Records regulations: The Federal rules restrict any use of the information to criminally investigate or prosecute any alcohol or drug abuse patient.[facility] Hospital[facility] the event this information is protected by the Federal Confidentiality of Alcohol and Drug Abuse Patient Records regulations: The Federal rules restrict any use of the information to criminally investigate or prosecute any alcohol or drug abuse patient.[facility] Hospital[facility] the event this information is protected by the Federal Confidentiality of Alcohol and Drug Abuse Patient Records regulations: The Federal rules restrict any use of the information to criminally investigate or prosecute any alcohol or drug abuse patient.[facility] the event this information is protected by the Federal Confidentiality of Alcohol and Drug Abuse Patient Records regulations: The Federal rules restrict any use of the information to criminally investigate or prosecute any alcohol or drug abuse patient.[facility] HospitalIn the event this information is protected by the Federal Confidentiality of Alcohol and Drug Abuse Patient Records regulations: The Federal rules restrict any use of the information to criminally investigate or prosecute any alcohol or drug abuse patient.[facility] HospitalIn the event this information is protected by the Federal Confidentiality of Alcohol and Drug Abuse Patient Records regulations: The Federal rules restrict any use of the information to criminally investigate or prosecute any alcohol or drug abuse patient.[facility] HospitalIn the event this information is protected by the Federal Confidentiality of Alcohol and Drug Abuse Patient Records regulations: The Federal rules restrict any use of the information to criminally investigate or prosecute any alcohol or drug abuse patient.[facility] Care Teams (unrecognized sec tion and content) Furniture Packer Relationship Specialty Start Date End Date Gabriel Galvan MD [address] [place] [address] PCP - General Internal Medicine 08/28/22 Furniture Packer Relationship Specialty Start Date End Date Gabriel Galvan MD [address] [place], [place] [id number] PCP - General Internal Medicine 08/28/22 Furniture Packer Relationship Specialty Start Date End Date Gabriel Galvan MD [address] [place], [place] [id number] PCP - General Internal Medicine 08/28/22 Team Status: Active Member Role Status Dates Dr. Chucky Martinez MD Family Provider Active Dr. Sudhir Ochoa MD Primary Care Provider Active Team Status: Inactive Member Role Status Dates Dr. Sudhir Ochoa MD Primary Care Provider, Refer ring Provider Active Edna RIBERA PA Attending Provider Active Team Status: Active Member Role Status Dates Dr. Sudhir Ochoa MD Primary Care Provider Active Dr. Adryan Sharp MD Attending Provider, Referring Provider, Other Provider Active Team Status: Inactive Member Role Status Dates Dr. Sudhir Ochoa MD Primary Care Provider Active Dr. Don Funk MD Attending Provider, Referring Provider Active Team Status: Inactive Member Role Status Dates Dr. Sudhir Ochoa MD Primary Care Provider Active Dr. Keisha Williamson DO Attending Provider, Emergency Pro vider Active Team Status: Inactive Member Role Status Dates Dr. Sudhir Ochoa MD Primary Care Provider Active Dr. Lo Chu MD Attending Provider, Emergency Provider Active Team Status: Inactive Member Role Status Dates Dr. Sudhir Ochoa MD Primary Care Provider Active Dr. Javon Reyes MD Attending Provider, Emergency Pro vider Active Team Status: Inactive Member Role Status Dates Dr. Sudhir Ochoa MD Primary Care Provider Active Dr. Adryan Aguilera DO Attending Provider, Emergency P rovider Active Team Status: Inactive Member Role Status Dates Dr. Sudhir Ochoa MD Primary Care Provider Active Dr. Adryan Sharp MD Attending Provider, Referring Pro vider Active Team Status: Inactive Member Role Status Dates Dr. Sudhir Ochoa MD Primary Care Provider Active Dr. Juan David Chambers DO Attending Provider, Emergency Provider Active Team Status: Inactive Member Role Status Dates Dr. Sudhir Ochoa MD Primary Care Provider Active Dr. Gonsalo Melendez DO Attending Provider, Emergency Provide r Active Team Status: Inactive Member Role Status Dates Dr. Sudhir Ochoa MD Primary Care Provider Active Dr. Clyde Serrano MD Emergency Provider Active Furniture Packer Relationship Specialty Start Date End Date Gabriel Galvan MD [address] [place], [place] [id number] PCP - General Internal Medicine 08/28/22 Furniture Packer Relationship Specialty Start Date End Date Gabriel Galvan MD [address] [place], [place] [address] PCP - General Internal Medicine 08/28/22 Furniture Packer Relationship Specialty Start Date End Date Gabriel Galvan MD [address] [place] [address] PCP - General Internal Medicine 08/28/22 Furniture Packer Relationship Specialty Start Date End Date Gabriel Galvan MD [address] [place] [address] PCP - General Internal Medicine 08/28/22 Team Status: Active Member Role Status Dates Dr. Chucky Martinez MD Family Provider Active No Primary Care Physician Primary Care Provider Active Team Status: Inactive Member Role Status Dates Dr. Sudhir Ochoa MD Primary Care Provider Active Dr. Clyde Serrano MD Attending Provider, Emergency Provi andreas Active Team Status: Active Member Role Status Dates Dr. Clyde Serrano MD Emergency Provider Active No Primary Care Physician Primary Care Provider Active Dr. Gloria Madrid MD Admit Provider, Attending Provid er Active Furniture Packer Relationship Specialty Start Date End Date Gabriel Galvan MD [address] [place] [address] PCP - General Internal Medicine 08/28/22 Furniture Packer Relationship Specialty Start Date End Date Gabriel Galvan MD [address] [place] [address] PCP - General Internal Medicine 08/28/22 Team Status: Active Member Role Status Dates Dr. Chucky Martinez MD Family Provider Active Dr. Gabriel Galvan MD Primary Care Provider Active Team Status: Active Member Role Status Dates Dr. Clyde Serrano MD Emergency Provider Active No Primary Care Physician Primary Care Provider Active Dr. Gloria Madrid MD Admit Provider, At tending Provider, Other Provider Active Dr. Arnold Buck MD Other Provider Active Team Status: Active Member Role Status Dates No Primary Care Physician Primary Care Provider Active Dr. Arnold Buck MD Attending Provider Activ e Team Status: Active Member Role Status Dates Dr. Clyde Serrano MD Emergency Provider Active Dr. Gloria Madrid MD Admit Provider, At tending Provider, Other Provider Active Dr. Arnold Buck MD Other Provider Active Dr. Gabriel Galvan MD Primary Care Provider Active Team Status: Inactive Member Role Status Dates Dr. Clyde Serrano MD Emergency Provider Active Dr. Gloria Madrid MD Admit Provider, Attending Provid er Active Dr. Arnold Buck MD Other Provider Active Dr. Gabriel Galvan MD Primary Care Provider Active Team Status: Inactive Member Role Status Dates Dr. Gabriel Galvan MD Primary Care Provider Active Dr. Adryan Aguilera DO Emergency Provider Active Team Status: Inactive Member Role Status Dates Dr. Gabriel Galvan MD Primary Care Provider Active Dr. Juan David Chambers DO Emergency Provider Active Furniture Packer Relationship Specialty Start Date End Date Gabriel Galvan MD [address] [place] [address] PCP - General Internal Medicine 08/28/22 Furniture Packer Relationship Specialty Start Date End Date Gabriel Galvan MD [address] [place] [address] PCP - General Internal Medicine 08/28/22 Team Status: Inactive Member Role Status Dates Dr. Gabriel Galvan MD Primary Care Provider Active Dr. Adryan Aguilera DO Attending Provider, Emergency P nick Active Team Status: Inactive Member Role Status Dates Dr. Gabriel Galvan MD Primary Care Provider Active Dr. Linus Byers MD Emergency Provider Active Furniture Packer Relationship Specialty Start Date End Date Gabriel Galvan MD [address] [facility] [place] [address] PCP - General Internal Medicine 08/28/22 Furniture Packer Relationship Specialty Start Date End Date Gabriel Galvan MD [address] [place] [address] PCP - General Internal Medicine 08/28/22 Team Status: Inactive Member Role Status Dates Dr. Gabriel Galvan MD Primary Care Provider, Referr ing Provider Active Dr. Don Funk MD Attending Provider Active Team Status: Active Member Role Status Dates Dr. Gabriel Galvan MD Primary Care Provider Active Dr. Don Funk MD Referring Provider, Other Pro vider Active Dr. Je Torres DO Attending Provider Active Team Status: Inactive Member Role Status Dates Dr. Gabriel Galvan MD Primary Care Provider Active Dr. Juan David Chambers DO Attending Provider, Emergency Provider Active Team Status: Inactive Member Role Status Dates Dr. Gabriel Galvan MD Primary Care Provider Active Dr. Linus Byers MD Attending Provider, Emergency Provider Active Team Status: Inactive Member Role Status Dates Dr. Gabriel Galvan MD Primary Care Provider Active Dr. Don Funk MD Attending Provider, Referring Provider Active Furniture Packer Relationship Specialty Start Date End Date Gabriel Galvan MD [address] [place], [place] [address] PCP - General Internal Medicine 08/28/22 Furniture Packer Relationship Specialty Start Date End Date Gabriel Galvan MD [address] [place], [place] [address] PCP - General Internal Medicine 08/28/22 Furniture Packer Relationship Specialty Start Date End Date Gabriel Galvan MD [address] [place], [place] [address] PCP - General Internal Medicine 08/28/22 Furniture Packer Relationship Specialty Start Date End Date Gabriel Galvan MD [address] [place], [place] [address] PCP - General Internal Medicine 08/28/22 Furniture Packer Relationship Specialty Start Date End Date Gabriel Galvan MD [address] [place], [place] [address] PCP - General Internal Medicine 08/28/22 Team Status: Inactive Member Role Status Dates Dr. aGbriel Galvan MD Primary Care Provider, Referr ing Provider Active Dr. Rakesh Martinez DO Attending Provider Active Team Status: Inactive Member Role Status Dates Dr. Gabriel Galvan MD Primary Care Provider, Referr ing Provider Active BACILIO Browning Attending Provider Active Team Status: Inactive Member Role Status Dates Dr. Gabriel Galvan MD Primary Care Provider Active Dr. Ross Lou DO Emergency Provider Active Team Status: Active Member Role Status Dates Dr. Chucky Martinez MD Family Provider Active Nora Crespo TRAINING MANAGER, TRAINING MANAGER-C Primary Care Provider Active Team Status: Inactive Member Role Status Dates Dr. Gabriel Galvan MD Primary Care Provider Active Dr. Ross Lou DO Attending Provider, Emergency Pr ovider Active Team Status: Inactive Member Role Status Dates Nora Crespo TRAINING MANAGER, TRAINING MANAGER-C Primary Care Provider Active Dr. Lo Chu MD Emergency Provider Active Team Status: Active Member Role Status Dates Dr. Rakesh Martinez DO Attending Provid er, Referring Provider, Other Provider Active Nora Crespo TRAINING MANAGER, TRAINING MANAGER-C Primary Care Provider Active Team Status: Inactive Member Role Status Dates Dr. Rakesh Martinez DO Attending Provider, Referring Provider Active Nora Crespo TRAINING MANAGER, TRAINING MANAGER-C Primary Care Provider Active Furniture Packer Relationship Specialty Start Date End Date Gabriel Galvan MD [address] [place] [address] PCP - General Internal Medicine 08/28/22 Team Status: Inactive Member Role Status Dates Nora Crespo TRAINING MANAGER, TRAINING MANAGER-C Primary Care Provider, Referring Provider Active Marsha Alonso TRAINING MANAGER, TRAINING MANAGER-C Attending Provider Active Team Status: Active Member Role Status Dates Nora Crespo TRAINING MANAGER, TRAINING MANAGER-C Primary Care Provider Active Marsha Alonso TRAINING MANAGER, TRAINING MANAGER-C Attending Provider, Referring P nick Active Team Status: Inactive Member Role Status Dates Dr. Rakesh Martinez DO Attending Provider, Referring Provider Active Nora Crespo TRAINING MANAGER, TRAINING MANAGER-C Primary Care Provider Active Dr. Alok Forrest MD Other Provider Active Team Status: Inactive Member Role Status Dates Nora Crespo TRAINING MANAGER, TRAINING MANAGER-C Primary Care Provider Active Dr. Lo Chu MD Attending Provider, Emergency Provider Active Team Status: Active Member Role Status Dates Nora Crespo TRAINING MANAGER, TRAINING MANAGER-C Primary Care Provider Active Marsha Alonso TRAINING MANAGER, TRAINING MANAGER-C Referring Provider, Other Provi andreas Active Dr. Ken Banda MD Attending Provider Active Team Status: Inactive Member Role Status Dates Nora Taylorr TRAINING MANAGER, TRAINING MANAGER-C Primary Care Provider Active Marsha Alonso TRAINING MANAGER, TRAINING MANAGER-C Attending Provider, Referring P rovider Active Team Status: Active Member Role Status Dates Nora Crespo TRAINING MANAGER, TRAINING MANAGER-C Primary Care Provider Active Marsha Alonso TRAINING MANAGER, TRAINING MANAGER-C Attending Provider Active Team Status: Active Member Role Status Marilee Crespo TRAINING MANAGER, TRAINING MANAGER-C Primary Care Provider, Referring Provider Active Dr. Rakesh Martinez DO Attending Provider, Other Prov ider Active Team Status: Inactive Member Role Status Marilee Crespo TRAINING MANAGER, TRAINING MANAGER-C Primary Care Provider, Referring Provider Active Dr. Rakesh Martinez DO Attending Provider Active Team Status: Inactive Member Role Status Marilee Crespo TRAINING MANAGER, TRAINING MANAGER-C Primary Care Provider Active Dr. Keisha Williamson DO Emergency Provider Active Furniture Packer Relationship Specialty Start Date End Date Gabriel Galvan MD [address] [place] [address] PCP - General Internal Medicine 08/28/22 Team Status: Active Member Role Status Marilee Crespo TRAINING MANAGER, TRAINING MANAGER-C Primary Care Provider Active Dr. Jose D Villanueva MD Attending Provider Active Dr. Rakesh Martinez DO Referring Provider Active Team Status: Inactive Member Role Status Marilee Crespo TRAINING MANAGER, TRAINING MANAGER-C Primary Care Provider Active Dr. Keisha Williamson DO Attending Provider, Emergency Pro vider Active Team Status: Active Member Role Status Dates Dr. Chucky Martinez MD Family Provider Active Dr. Danny Green MD Primary Care Provider Active Team Status: Inactive Member Role Status Marilee Hart MD Emergency Provider Active Dr. Danny Green MD Primary Care Provider Active Team Status: Inactive Member Role Status Marilee Hart MD Attending Provider, Emergency Provid er Active Dr. Danny Green MD Primary Care Provider Active Team Status: Inactive Member Role Status Marilee Galvan MD Primary Care Provider Active Dr. Darrell Hathaway DO Emergency Provider Active Team Status: Inactive Member Role Status Dates Dr. Gabriel Galvan MD Primary Care Provider Active Ed Physician Provider Emergency Provider Active Furniture Packer Relationship Specialty Start Date End Date Gabriel Galvan MD [address] [place] [address] PCP - General Internal Medicine 08/28/22 Furniture Packer Relationship Specialty Start Date End Date Gabriel Galvan MD [address] [place] [address] PCP - General Internal Medicine 08/28/22 Furniture Packer Relationship Specialty Start Date End Date Gabriel Galvan MD [address] [place] [address] PCP - General Internal Medicine 08/28/22 Team Status: Inactive Member Role Status Dates Dr. Gabriel Galvan MD Primary Care Provider Active Dr. Darrell Hathaway DO Attending Provider, Emergency P nick Active Team Status: Active Member Role Status Dates Dr. Gabriel Galvan MD Primary Care Provider Active Dr. Ara PETERSEN MD Attending Provider Active Team Status: Inactive Member Role Status Dates Dr. Gabriel Galvan MD Primary Care Provider Active Ed Physician Provider Attending Provider, Emergency Pr ovidharleen Active Furniture Packer Relationship Specialty Start Date End Date Gabriel Galvan MD [address] [place] [address] PCP - General Internal Medicine 08/28/22 Furniture Packer Relationship Specialty Start Date End Date Gabriel Galvan MD [address] [place] [address] PCP - General Internal Medicine 08/28/22 Furniture Packer Relationship Specialty Start Date End Date aGbriel Galvan MD [address] [place] [address] PCP - General Internal Medicine 08/28/22 Furniture Packer Relationship Specialty Start Date End Date Gabriel Galvan MD [address] [facility] [place] [address] PCP - General Internal Medicine 08/28/22 Furniture Packer Relationship Specialty Start Date End Date Gabriel Galvan MD [address] [facility] [place] [address] PCP - General Internal Medicine 08/28/22 Furniture Packer Relationship Specialty Start Date End Date Gabriel Galvan MD [address] [facility] [place] [address] PCP - General Internal Medicine 08/28/22 Furniture Packer Relationship Specialty Start Date End Date Gabriel Galvan MD [address] [facility] [place] [address] PCP - General Internal Medicine 08/28/22 Furniture Packer Relationship Specialty Start Date End Date Gabriel Galvan MD [address] [facility] [place] [address] PCP - General Internal Medicine 08/28/22 Furniture Packer Relationship Specialty Start Date End Date Gabriel Galvan MD [address] [facility] [place] [address] PCP - General Internal Medicine 08/28/22 Furniture Packer Relationship Specialty Start Date End Date Gabriel Galvan MD [address] [facility] [place] [address] PCP - General Internal Medicine 08/28/22 Furniture Packer Relationship Specialty Start Date End Date Gabriel Galvan MD [address] [place] [address] PCP - General Internal Medicine 08/28/22 Furniture Packer Relationship Specialty Start Date End Date Gabriel Galvan MD [address] [place] [address] PCP - General Internal Medicine 08/28/22 Furniture Packer Relationship Specialty Start Date End Date Gabriel Galvan MD [address] [place] [address] PCP - General Internal Medicine 08/28/22 Furniture Packer Relationship Specialty Start Date End Date Gabriel Galvan MD [address] [place] [address] PCP - General Internal Medicine 08/28/22 Furniture Packer Relationship Specialty Start Date End Date Gabriel Galvan MD [address] [place] [address] PCP - General Internal Medicine 08/28/22 Furniture Packer Relationship Specialty Start Date End Date Gabriel Galvan MD [address] [place] [address] PCP - General Internal Medicine 08/28/22 Furniture Packer Relationship Specialty Start Date End Date Gabriel Galvan MD [address] [place] [address] PCP - General Internal Medicine 08/28/22 Furniture Packer Relationship Specialty Start Date End Date Gabriel Galvan MD [address] [place] [address] PCP - General Internal Medicine 08/28/22 Furniture Packer Relationship Specialty Start Date End Date Gabriel Galvan MD [address] [place] [address] PCP - General Internal Medicine 08/28/22 Lyndsey Acevedo, 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.ALMOND ROASTER [address] [place] [address] Beauty Culturist Apprentice Internal Medicine 08/15/24 Nora Crespo 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.[employer]ANGE [employer] DEFENSE ARTILLERY [address] [place] [address] Beauty Culturist Apprentice Internal Medicine 08/15/24 Furniture Packer Relationship Specialty Start Date End Date Gabriel Galvan MD [address] [place] [address] PCP - General Internal Medicine 08/28/22 Lyndsey Acevedo, 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.ALMOND ROASTER [address] [place] [address] Beauty Culturist Apprentice Internal Medicine 08/15/24 Nora Crespo 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.SHORT RANGE [employer] DEFENSE ARTILLERY [address] [place] [address] Beauty Culturist Apprentice Internal Medicine 08/15/24 Furniture Packer Relationship Specialty Start Date End Date Gabriel Galvan MD [address] [place] [address] PCP - General Internal Medicine 08/28/22 Lyndsey Acevedo, 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.ALMOND ROASTER [address] [place] [address] Beauty Culturist Apprentice Internal Medicine 08/15/24 Nora Crespo, 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.SHORT RANGE AIR DEFENSE ARTILLERY [address] [place] [address] Beauty Culturist Apprentice Internal Medicine 08/15/24 Furniture Packer Relationship Specialty Start Date End Date Gabriel Galvan MD [address] [place] [address] PCP - General Internal Medicine 08/28/22 Lyndsey Acevedo, 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.ALMOND ROASTER [address] [place] [address] Beauty Culturist Apprentice Internal Medicine 08/15/24 Nora Crespo 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.[employer] ARTILLERY [address] [place] [address] Beauty Culturist Apprentice Internal Medicine 08/15/24 Bimal Gonzalez, WENDY [address] [place] [address] Primary Care Broke Worker 10/03/24 Furniture Packer Relationship Specialty Start Date End Date Gabriel Galvan MD [address] [place] [address] PCP - General Internal Medicine 08/28/22 Lyndsey Acevedo, 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.ALMOND ROASTER [address] [place] [address] Beauty Culturist Apprentice Internal Medicine 08/15/24 Nora Crespo 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.SHORT RANGE AIR DEFENSE ARTILLERY [facility] [place] [address] Beauty Culturist Apprentice Internal Medicine 08/15/24 Bimal Gonzalez, WENDY [address] [place], [place] [id number] Primary Care Broke Worker 10/03/24 Furniture Packer Relationship Specialty Start Date End Date Gabriel Galvan MD [address] [place] [address] PCP - General Internal Medicine 08/28/22 Lyndsey Acevedo, 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.ALMOND ROASTER [address] [place] [address] Beauty Culturist Apprentice Internal Medicine 08/15/24 Nora Crespo, 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.[employer] R[employer]ENSE ARTILLERY [address] [place] [address] Beauty Culturist Apprentice Internal Medicine 08/15/24 Bimal Gonzalez, RN [address] [place] [address] Primary Care Broke Worker 10/03/24 Furniture Packer Relationship Specialty Start Date End Date Gabriel Galvan MD [address] [place] [address] PCP - General Internal Medicine 08/28/22 Lyndsey Acevedo, 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.ALMOND ROASTER [address] [place] [address] Beauty Culturist Apprentice Internal Medicine 08/15/24 Nora Crespo, 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.[employer]ENSE ARTILLERY [address] [place] [address] Beauty Culturist Apprentice Internal Medicine 08/15/24 Bimal Gonzalez, WENDY [address] [place] [address] Primary Care Broke Worker 10/03/24 Furniture Packer Relationship Specialty Start Date End Date Gabriel Galvan MD [address] [place] [address] PCP - General Internal Medicine 08/28/22 Lyndsey Acevedo APRN.ALMOND ROASTER [address] [place] [address] Beauty Culturist Apprentice Internal Medicine 08/15/24 Nora Crespo APRN.[employer]ILLERY [address] [place] [address] Beauty Culturist Apprentice Internal Medicine 08/15/24 Bimal Gonzalez, WENDY [address] [place] [address] Primary Care Broke Worker 10/03/24 Furniture Packer Relationship Specialty Start Date End Date Gabriel Galvan MD [address] [place] [address] PCP - General Internal Medicine 08/28/22 Lyndsey Acevedo APRN.ALMOND ROASTER [address] [facility] [place] [address] Beauty Culturist Apprentice Internal Medicine 08/15/24 Nora Crespo APRN.[employer]ILLERY [address] [place] [address] Beauty Culturist Apprentice Internal Medicine 08/15/24 Furniture Packer Relationship Specialty Start Date End Date Gabriel Galvan MD [address] [place] [address] PCP - General Internal Medicine 08/28/22 Lyndsey Acevedo 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.ALMOND ROASTER [address] [place] [address] Beauty Culturist Apprentice Internal Medicine 08/15/24 Nora Crespo APRN.[employer]ILLERY [address] [place] [address] Beauty Culturist Apprentice Internal Medicine 08/15/24 Furniture Packer Relationship Specialty Start Date End Date Gabriel Galvan MD [address] [place], [place] [address] PCP - General Internal Medicine 08/28/22 Lyndsey Acevedo, 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.ALMOND ROASTER [address] [place], [place] [id number] [facility] Internal Medicine 08/15/24 Nora Crespo, 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.[employer] [address] [place], [place] [address] [facility] Internal Medicine 11/29/24 Team Status: Active Member Role Status Dates Dr. Gabriel Galvan MD Primary Care Provider Active Team Status: Inactive Member Role Status Dates Dr. Gabriel Galvan MD Primary Care Provider Active Start: September 28, 2024 End: September 30, 2024 Dr. Keisha Williamson , Emergency Provider Active S tart: September 28, 2024 End: September 30, 2024 Dr. Gloria Madrid MD Admit Provider Active Star t: September 28, 2024 End: September 30, 2024 Dr. Gloria Madrid MD Other Provider Active Star t: September 28, 2024 End: September 30, 2024 Dr. Jones Gregory MD Attending Provider Active Start: September 28, 2024 End: September 30, 2024 Team Status: Active Member Role Status Dates Dr. Gabriel Galvan MD Primary Care Provider Active Start: September 29, 2024 Dr. Keisha Williamson DO Emergency Provider Active S tart: September 29, 2024 Dr. Gloria Madrid MD Admit Provider Active Star t: September 29, 2024 Dr. Gloria Madrid MD Other Provider Active Star t: September 29, 2024 Dr. Jones Gregory MD Attending Provider Active Start: September 29, 2024 Dr. Jones Gregory MD Other Provider Active Star t: September 29, 2024 Team Status: Active Member Role Status Dates Dr. Gabriel Galvan MD Primary Care Provider Active Start: September 30, 2024 Dr. Keisha Williamson DO Emergency Provider Active S tart: September 30, 2024 Dr. Gloria Madrid MD Admit Provider Active Star t: September 30, 2024 Dr. Gloria Madrid MD Other Provider Active Star t: September 30, 2024 Dr. Jones Gregory MD Attending Provider Active Start: September 30, 2024 Dr. Jones Gregory MD Other Provider Active Star t: September 30, 2024 Team Status: Inactive Member Role Status Dates Dr. Gabriel Galvan MD Primary Care Provider Active Start: October 04, 2024 End: October 04, 2024 Dr. Gabriel Galvan MD Referring Provider Active Start: October 04, 2024 End: October 04, 2024 Dr. Rey Curtis MD Attending Provider Active S tart: October 04, 2024 End: October 04, 2024 Team Status: Inactive Member Role Status Dates Dr. Gabriel Galvan MD Primary Care Provider Active Start: November 04, 2024 End: November 05, 2024 Dr. Linus Byers MD Attending Provider Active Start: November 04, 2024 End: November 05, 2024 Dr. Linus Byers MD Emergency Provider Active Start: November 04, 2024 End: November 05, 2024 Team Status: Inactive Member Role Status Dates Dr. Gabriel Galvan MD Primary Care Provider Active Start: December 20, 2024 End: December 20, 2024 Waqas Hart MD Emergency Provider Active Star t: December 20, 2024 End: December 20, 2024 Furniture Packer Relationship Specialty Start Date End Date Gabriel Galvan MD [address] [place], [place] [id number] PCP - General Internal Medicine 08/28/22 Lyndsey Acevedo, 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.ALMOND ROASTER [address] [place] [address] Beauty Culturist Apprentice Internal Medicine 08/15/24 Nora Crespo 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.[employer] [address] [place] [address] [facility] Internal Medicine 11/29/24 Team Status: Inactive Member Role Status Dates Dr. Gabriel Galvan MD Primary Care Provider Active Start: December 20, 2024 End: December 20, 2024 Waqas Hart MD Attending Provider Active Star t: December 20, 2024 End: December 20, 2024 Waqas Hart MD Emergency Provider Active Star t: December 20, 2024 End: December 20, 2024 Team Status: Inactive Member Role Status Dates Dr. Gabriel Galvan MD Primary Care Provider Active Start: December 30, 2024 End: December 30, 2024 Waqas Hart MD Emergency Provider Active Star t: December 30, 2024 End: December 30, 2024 Furniture Packer Relationship Specialty Start Date End Date Gabriel Galvan MD [address] [place] [address] PCP - General Internal Medicine 08/28/22 Lyndsey Acevedo 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.ALMOND ROASTER [address] [place], [place] [address] [facility] Internal Medicine 08/15/24 Nora Crespo 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.[employer] [address] [place] [address] [facility] Internal Medicine 11/29/24 Team Status: Inactive Member Role Status Dates Dr. Gabriel Galvan MD Primary Care Provider Active Start: December 30, 2024 End: December 30, 2024 Waqas Hart MD Attending Provider Active Star t: December 30, 2024 End: December 30, 2024 Waqas Hart MD Emergency Provider Active Star t: December 30, 2024 End: December 30, 2024 Team Status: Inactive Member Role Status Dates Dr. Gabriel Galvan MD Primary Care Provider Active Start: January 10, 2025 End: January 10, 2025 Dr. Javon Reyes MD Emergency Provider Active S tart: January 10, 2025 End: January 10, 2025 Furniture Packer Relationship Specialty Start Date End Date Gabriel Galvan MD [address] [place] [address] PCP - General Internal Medicine 08/28/22 Lyndsey Acevedo, 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.ALMOND ROASTER [address] [facility] [address] Beauty Culturist Apprentice Internal Medicine 08/15/24 Nora Crespo 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.[employer] [address] [place] [address] Beauty Culturist Apprentice Internal Medicine 11/29/24 Furniture Packer Relationship Specialty Start Date End Date Gabriel Galvan MD [address] [facility] [address] PCP - General Internal Medicine 08/28/22 Lyndsey Acevedo, 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.ALMOND ROASTER [address] [place] [address] Beauty Culturist Apprentice Internal Medicine 08/15/24 Nora Crespo 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.[employer] [address] [facility] [address] Beauty Culturist Apprentice Internal Medicine 11/29/24 Furniture Packer Relationship Specialty Start Date End Date Gabriel Galvan MD [address] [place] [address] PCP - General Internal Medicine 08/28/22 Lyndsey Acevedo, 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.ALMOND ROASTER [address] [place] [address] [facility] Internal Medicine 08/15/24 Nora Crespo APRN.[employer] [address] [place], [place] [id number] [facility] Internal [facility] 11/29/24 Furniture Packer Relationship Specialty Start Date End Date Gabriel Galvan MD [address] [place] [address] PCP - General Internal Medicine 08/28/22 Lyndsey Acevedo APRN.ALMOND ROASTER [address] [place] [address] [facility] Internal [facility] 08/15/24 Nora Crespo APRN.[employer] [address] [place] [address] [facility] Internal [facility] 11/29/24 Team Status: Inactive Member Role Status Dates Dr. Gabriel Galvan MD Primary Care Provider Active Start: January 10, 2025 End: January 10, 2025 Dr. Javon Reyes MD Attending Provider Active S tart: January 10, 2025 End: January 10, 2025 Dr. Javon Reyes MD Emergency Provider Active S tart: January 10, 2025 End: January 10, 2025 Team Status: Inactive Member Role Status Dates Dr. Gabriel Galvan MD Primary Care Provider Active Start: January 13, 2025 End: January 13, 2025 Dr. Gabriel Galvan MD Referring Provider Active Start: January 13, 2025 End: January 13, 2025 Dr. Rakesh Martinez DO Attending Provider Active Start: January 13, 2025 End: January 13, 2025 Team Status: Inactive Member Role Status Dates Dr. Gabriel Galvan MD Primary Care Provider Active Start: January 18, 2025 End: January 18, 2025 Dr. Alok Forrest MD Attending Provider Active Start: January 18, 2025 End: January 18, 2025 Dr. Alok Forrest MD Referring Provider Active Start: January 18, 2025 End: January 18, 2025 Furniture Packer Relationship Specialty Start Date End Date Gabriel Galvan MD [address] [place] [address] PCP - General Internal Medicine 08/28/22 Lyndsey Acevedo, 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.ALMOND ROASTER [address] [facility] [place] [address] Beauty Culturist Apprentice Internal Medicine 08/15/24 01/24/25 Nora Crespo 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.[employer] [address] [facility] [address] Beauty Culturist Apprentice Internal Medicine 11/29/24 Lyndsey Acevedo, 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.ALMOND ROASTER [address] [facility] [address] Beauty Culturist Apprentice Internal Medicine 01/25/25 Furniture Packer Relationship Specialty Start Date End Date Gabriel Galvan MD [address] [facility] [address] PCP - General Internal Medicine 08/28/22 Nora Crespo 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.[employer] [address] [facility] [address] Beauty Culturist Apprentice Internal Medicine 11/29/24 Lyndsey Acevedo, 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.ALMOND ROASTER [address] [facility] [address] [facility] Internal Medicine 01/25/25 Furniture Packer Relationship Specialty Start Date End Date Gabriel Galvan MD [address] [facility] [place] [address] PCP - General Internal Medicine 08/28/22 Lyndsey Acevedo, 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.ALMOND ROASTER [address] [place] [address] Beauty Culturist Apprentice Internal Medicine 08/15/24 01/24/25 Nora Crespo, 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.[employer] [address] [place] [address] Beauty Culturist Apprentice Internal Medicine 11/29/24 Lyndsey Acevedo, 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.ALMOND ROASTER [address] [place] [address] [facility] Internal Medicine 01/25/25 Furniture Packer Relationship Specialty Start Date End Date Gabriel Galvan MD [address] [place] [address] PCP - General Internal Medicine 08/28/22 Nora Crespo, 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.[employer] [address] [place] [address] [facility] Internal Medicine 11/29/24 Lyndsey Acevedo, 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.ALMOND ROASTER [address] [place] [address] [facility] Internal Medicine 01/25/25 Furniture Packer Relationship Specialty Start Date End Date Gabriel Galvan MD [address] [place] [address] PCP - General Internal Medicine 08/28/22 Nora Crespo 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.[employer] [address] [place] [address] [facility] Internal Medicine 11/29/24 Lyndsey Acevedo, 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.ALMOND ROASTER [address] [facility] [place] [address] Beauty Culturist Apprentice Internal Medicine 01/25/25 Furniture Packer Relationship Specialty Start Date End Date Gabriel Galvan MD [address] [facility] [place] [address] PCP - General Internal Medicine 08/28/22 Nora Crespo 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.[employer] [address] [facility] [place] [address] Beauty Culturist Apprentice Internal Medicine 11/29/24 Lyndsey Acevedo, 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.ALMOND ROASTER [address] [facility] [place] [address] Beauty Culturist Apprentice Internal Medicine 01/25/25 Furniture Packer Relationship Specialty Start Date End Date Gabriel Galvan MD [address] [facility] [place] [address] PCP - General Internal Medicine 08/28/22 Nora Crespo, 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.[employer] [address] [facility] [place] [address] Beauty Culturist Apprentice Internal Medicine 11/29/24 Lyndsey Acevedo, 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.ALMOND ROASTER [address] [facility] [place] [address] [facility] Internal Medicine 01/25/25 Furniture Packer Relationship Specialty Start Date End Date Gabriel Galvan MD [address] [facility] [place] [address] PCP - General Internal Medicine 08/28/22 Nora Crespo 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.[employer] [address] [place], [place] [address] [facility] Internal Medicine 11/29/24 Lyndsey Acevedo APRN.ALMOND ROASTER [address] [place], [place] [id number] [facility] Internal [facility] 01/25/25 Furniture Packer Relationship Specialty Start Date End Date Gabriel Galvan MD [address] [place], [place] [address] PCP - General Internal Medicine 08/28/22 Nora Crespo APRN.[employer] [address] [place], [place] [address] [facility] Internal [facility] 11/29/24 Lyndsey Acevedo APRN.ALMOND ROASTER [address] [place], [place] [address] [facility] Internal [facility] 01/25/25 FOR RECORDS PERTAINING TO PATIENTS WHO ARE [...] BE BASED ON THE PRIMARY CLINICAL RECORDS. [employer] provides no warranty or guarantee of the accuracy or completeness of information in this document.
--- NOTE | 2025-05-26 08:05 | EX.ED.DYSGE1 ---
HPI History of Present Illness Chief Complaint: Chest Pain Informant: patient and EMS Narrative Narrative: Patient is a 69-year-old female with past medical history of COPD emphysema as well as hypertension hyperlipidemia and ischemic cardiomyopathy. She presents with complaint of chest discomfort. She states that she awoke this morning roughly 1 hour prior to arrival and noticed some mid to left-sided chest pain that radiated towards her shoulder. She states there was no associated nausea vomiting diaphoresis or shortness of breath. She states that there has been no recent trauma or sick symptoms. She reports she is taking all of her home medication as directed but despite doing so has not had improvement of her symptoms. And secondary to this called EMS to be brought in for evaluation [facility] Medical History Chronic pain Kidney disease Asthma Irregular heart beat Congestive heart failure (CHF) TIA (transient ischemic attack) Wears glasses Post-menopausal Arthritis History of renal disease High cholesterol DVT (deep venous thrombosis) Easy bruising Excessive bleeding Back pain Injury of back History of ulceration Difficulty chewing Gastric reflux Shortness of breath on exertion Hoarseness Chronic cough Leg cramps History of pain when walking History of edema History of echocardiogram History of stress test Cardiology follow-up encounter History of CHF (congestive heart failure) History of irregular heartbeat Chest pain Bullous emphysema COPD with asthma Esophagitis, unspecified without bleeding Unspecified combined 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 Other chronic pain Elevated troponin Sustained SVT Depression Osteoporosis Kidney stones Smoker Myocardial infarct History of non-ST elevation myocardial infarction (NSTEMI) (09/01/21) Essential hypertension Old anterior wall myocardial infarction Ischemic cardiomyopathy Opiate dependence Anxiety and depression TIA (transient ischemic attack) Obesity (BMI 30.0-34.9) EVELYN (obstructive sleep apnea) Personal history of transient ischemic attack (TIA), and cerebral infarction without residual deficits COPD (chronic obstructive pulmonary disease) Calculus of left kidney GERD (gastroesophageal reflux disease) Hyperlipidemia 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 Tobacco abuse Home Medications ?Medication ?Instructions ?Recorded ?Last Taken ?Type inhalational spacing device #1 ea 02/17/23 Unknown Rx (Aerochamber MV spacer) tiotropium bromide 2.5 2 puff inhalation DAILY #4 grams 02/17/23 09/27/24 Rx mcg/actuation mist for inhalation (Spiriva Respimat) lorazepam 1 mg tablet (Ativan) 1 mg PO TID PRN anxiety 07/16/23 09/27/24 History gabapentin 400 mg capsule 400 mg PO Q6H 07/29/23 09/27/24 History nitroglycerin 0.4 mg sublingual 0.4 mg buccal Q5M PRN chest pain 07/29/23 Unknown History tablet sucralfate 1 gram tablet 1 g PO Q8H 07/29/23 09/27/24 History melatonin 3 mg capsule 3 mg PO QHS 09/05/23 09/27/24 History albuterol 90 mcg-budesonide 80 1 - 2 inh inhalation BID PRN 09/28/24 09/27/24 History mcg/actuation HFA aerosol inhaler shortness of breath (Airsupra) atorvastatin 40 mg tablet 40 mg PO QHS 09/28/24 09/27/24 History bisacodyl 5 mg tablet,delayed 5 mg PO DAILY PRN constipation 09/28/24 Unknown History release cholecalciferol (vitamin D3) 125 125 mcg PO DAILY 09/28/24 09/27/24 History mcg (5,000 unit) capsule hydrocodone-acetaminophen 5-325mg 1 tab PO Q4H 09/28/24 09/27/24 History 5mg-325mg lisinopril 5 mg tablet 5 mg PO DAILY 09/28/24 09/27/24 History polyethylene glycol 3350 17 17 g PO BID 09/28/24 09/27/24 History gram/dose oral powder promethazine 25 mg tablet 25 mg PO PRN PRN nausea and 09/28/24 Unknown History vomiting budesonide-formoterol HFA 160 1 puff inhalation BID #10.2 grams 09/30/24 Unknown Rx mcg-4.5 mcg/actuation aerosol inhaler (Symbicort) carvedilol 25 mg tablet 25 mg PO BID #120 tabs 10/04/24 Unknown Rx furosemide 40 mg tablet 40 mg PO QDAY #90 tabs 10/04/24 Unknown Rx clopidogrel 75 mg tablet 75 mg PO QDAY 01/13/25 Unknown History omeprazole 40 mg capsule,delayed 40 mg PO QDAY 01/13/25 Unknown History release potassium chloride 20 mEq 20 meq PO QDAY 01/13/25 Unknown History tablet,extended release sertraline 50 mg tablet 50 mg PO QDAY 01/13/25 Unknown History spironolactone 25 mg tablet 25 mg PO QDAY 01/13/25 Unknown History Allergy/AdvReac Type Severity Reaction Status Date / Time Iodinated Contrast Media Allergy SOB Verified 05/26/25 06:10 (iodine contrast) Family History Mother Hypertension CAD (coronary artery disease) CVA (cerebral vascular accident) Myocardial infarction Grandmother Myocardial infarction Surgical History History of cholecystectomy Hx of esophagogastroduodenoscopy History of cardiac catheterization History of hysterectomy History of left heart catheterization (01/20/22) History of total hysterectomy Hx of appendectomy Social History household members: none Smoking Status: Current some day smoker tobacco type: cigarettes alcohol intake: never substance use type: does not use ROS ROS ED Constitutional Constitutional ED: Denies chills or fever(s) Eyes Eyes: Denies change in vision ENT ENT ED: Denies rhinorrhea or sore throat Cardiovascular Cardiovascular: Reports chest pain; Denies palpitations or racing heartbeat Respiratory/Chest Respiratory/Chest: Reports cough and other Details: Patient reports cough is chronic in nature ; Denies dyspnea Gastrointestinal Gastrointestinal: Denies abdominal pain, diarrhea, nausea or vomiting Genitourinary Genitourinary ED: Denies dysuria Musculoskeletal Musculoskeletal: Denies myalgias Integumentary Denies rash Neurologic Neurologic: Denies headache(s) Psychiatric Psychiatric: Reports anxiety Hematologic/Lymphatic Hematologic/Lymphatic: Reports easy bleeding and easy bruising EXAM Physical Exam Const Vital Signs: 05/26/25 06:10 05/26/25 06:15 05/26/25 07:10 Temperature 98.0 F Temperature Source Oral Pulse Rate 76 72 Respiratory Rate 18 18 Respiratory Pattern Normal Blood Pressure 150/111 H 162/114 H Blood Pressure Mean 124 130 Pulse Ox 93 97 Oxygen Delivery Method Room Air Positive well nourished and well developed General Appearance ED: well developed HEENT HEENT Narrative: Normocephalic atraumatic Eyes PERRL and EOMs intact bilaterally General Eye ED: Negative for scleral icterus Neck supple and no JVD Chest Wall Chest Narrative: There is pain on palpation of the mid to left anterior chest wall without bony deformity or crepitance Resp normal respiratory effort Resp Narrative: Breath sounds are diminished throughout with faint rhonchi in the bilateral lower lobes and expiratory wheezing consistent with history of COPD/smoking However no signs of respiratory distress Cardio regular rate and regular rhythm Rate: other Other Details: Heart is regular rate and rhythm Radial and carotid pulses are equal and symmetric GI non-distended and no masses GI Narrative: Abdomen is soft and nondistended with hypoactive bowel sounds. There is mild pain on palpation along the umbilicus where patient has a ventral hernia that is reducible in nature No voluntary guarding or rigidity or pulsatile mass Auscultation: hypoactive bowel sounds Palpation: soft Extremity normal to inspection Extremity Narrative: No asymmetric edema of bilateral lower extremities Negative Homans' sign bilaterally +1 pitting edema to the bilateral lower extremities that is equal and symmetric Neuro oriented x3, CN's II-XII intact bilaterally and no sensory deficits noted Sensorium / Orientation: alert Psych Mood & Affect: anxious Skin no rashes or lesions noted and no wounds General Skin Exam: Negative for jaundice MDM MDM MDM Narrative Medical decision making narrative: Patient arrived to ER hypertensive but otherwise with stable vitals. She reported mid to left-sided chest discomfort but no associated nausea vomiting diaphoresis shortness of breath. Chart review reveals she does have a history of ischemic cardiomyopathy. She was evaluated by cardiology in September of this year. She has a previous echo from 2022 showing a left ventricular thrombus as well as diminished ejection fraction of approximately 20 to 30%. The recommendation was continued medical management with repeat echocardiogram. The patient states she has never followed up to have that obtained. Her EKG was compared to multiple previous ones and is similar in nature without acute ischemic or dysrhythmia change. Also of note was the outpatient cardiology note states that the patient is typically short of breath at rest and with exertion and also has chest discomfort almost daily. Therefore at this time I feel her symptoms could be related to lung pathology such as pneumonia or congestive heart failure exacerbation or could in theory also be acute coronary syndrome as she does have multiple risk factors for CAD. I have low concern that her discomfort is from a PE as she is on Xarelto and the chest pain is not pleuritic and is also reproducible. There is also potential that this is her chronic chest discomfort. However in order to help differentiate between an acute exacerbation versus chronic pain I did elect to perform basic laboratory studies with an initial and delta troponin EKG. as stated above EKG revealed no ischemic changes and is very similar to her previous. The initial troponin is 18 which is mildly elevated from a value of 11 obtained on December 20 of this year. Her proBNP is elevated but she has a known reduced ejection fraction and her pulse ox is normal on room air going against a CHF exacerbation. At this time the patient will require a delta troponin. I do feel that the value remains flat and the chance this being a acute coronary syndrome is low and her symptoms are most like related to her underlying chronic conditions of ischemic cardiomyopathy and CHF. At this time as the delta troponin and response to therapy is still pending the patient will be signed out to the day physician Dr. Dwyer History & Record Review Discussion w/independent historian: Patient Additional record(s) reviewed:: Prior outpatient record Lab Data Attestation: I reviewed the patient's lab results. Labs: Laboratory Results - last 24 hr 05/26/25 06:00 WBC 8.4 RBC 4.15 L Hgb 13.4 Hct 40.5 MCV 97.6 MCH 32.3 H MCHC 33.1 RDW Std Deviation 50.5 H RDW Coeff of Sariah 14.1 Plt Count 230 MPV 9.8 Immature Gran % (Auto) 0.200 Neut % (Auto) 31.2 L Lymph % (Auto) 55.8 H Otero % (Auto) 8.8 Eos % (Auto) 3.1 Baso % (Auto) 0.9 Absolute Neuts (auto) 2.6 Absolute Lymphs (auto) 4.71 H Nucleated RBC % 0 Sodium 144 Potassium 4.2 Chloride 109 H Carbon Dioxide 26.6 Anion Gap 9 BUN 16 Creatinine 0.90 Estim Creat Clear Calc 57.50 Est GFR (MDRD) Non-Af 70 BUN/Creatinine Ratio 18.1 Glucose 122 H Calcium 9.2 Magnesium 2.2 Troponin T High Sens 18 H D NT pro BNP II 2936 H Radiography Diagnostic Testing: Clinical Impression(s) from Imaging Studies Chest X-Ray 05/26/25 06:48 IMPRESSION: Perihilar airspace opacities may represent CHF, pulmonary edema or pneumonia. Small pleural effusion. Reading Location: [facility] Chest x-ray as interpreted by emergency medicine physician reveals cardiomegaly with slight increased pulmonary vascular congestion consistent with CHF Discharge Plan Triage Chief Complaint: Chest Pain ED Provider: Ross Lou Dx/Rx/DC Orders Clinical Impression: Nonspecific chest pain, Ischemic cardiomyopathy, Essential hypertension Prescriptions: No Action Spiriva Respimat 2.5 mcg/actuation mist 2 puff inhalation DAILY Qty: 4 11RF (DME) Aerochamber MV Spacer See Rx Instructions .ROUTE .MEDSUPPLY Qty: 1 0RF Rx Instructions: As directed lorazepam [Ativan] 1 mg tablet 1 mg PO TID PRN (Reason: anxiety) furosemide 40 mg tablet 40 mg PO QDAY Qty: 90 3RF carvedilol 25 mg tablet 25 mg PO BID Qty: 120 3RF Rx Instructions: must administer with a meal/food clopidogrel 75 mg tablet 75 mg PO QDAY omeprazole 40 mg capsule,delayed release(DR/EC) 40 mg PO QDAY spironolactone 25 mg tablet 25 mg PO QDAY sertraline 50 mg tablet 50 mg PO QDAY potassium chloride 20 mEq tablet extended release 20 meq PO QDAY melatonin 3 mg capsule 3 mg PO QHS gabapentin 400 mg capsule 400 mg PO Q6H nitroglycerin 0.4 mg tablet, sublingual 0.4 mg buccal Q5M PRN (Reason: chest pain) sucralfate 1 gram tablet 1 g PO Q8H promethazine 25 mg tablet 25 mg PO PRN PRN (Reason: nausea and vomiting) hydrocodone-acetaminophen 5-325 mg tablet 1 tab PO Q4H Airsupra 90-80 mcg/actuation HFA aerosol inhaler 1 - 2 inh INHALATION BID PRN (Reason: shortness of breath) Patient Comments: [NO ORIGINAL SIG] atorvastatin 40 mg tablet 40 mg PO QHS bisacodyl 5 mg tablet,delayed release (DR/EC) 5 mg PO DAILY PRN (Reason: constipation) Patient Comments: [NO ORIGINAL SIG] polyethylene glycol 3350 17 gram/dose powder 17 g PO BID cholecalciferol (vitamin D3) 125 mcg (5,000 unit) capsule 125 mcg PO DAILY lisinopril 5 mg tablet 5 mg PO DAILY budesonide-formoterol [Symbicort] 160-4.5 mcg/actuation HFA aerosol inhaler 1 puff inhalation BID Qty: 10.2 0RF Primary Care Provider: Sandy Barbosa Referrals: Sandy Barbosa MD [Primary Care Provider, Internal Medicine] Print Language: Lao
[2025-05-26 09:01] LABS: Troponin T High Sens 2 HR 102 ng/L (<=14)
--- NOTE | 2025-05-26 09:42 | PCM.HP.STD ---
[facility] - General General Date of Admission: 05/26/25 Date of Service: 05/26/25 Chief Complaint: Left-sided chest pain, shoulder pain and shortness of breath since yesterday morning. [facility] Narrative ECHO KERNS, is a 69 F came to ED with left-sided chest pain with radiation to left shoulder and arm along with shortness of breath since 6 AM today. Patient stated that she has been little sick for last 3 days with cough, shortness of breath and wheezing and was given some antibiotic as an outpatient. Initially her cough was dry but now it is mildly productive with thick whitish sputum. She has wheezing. She is also on Airsupra, Symbicort, Spiriva inhaler for her COPD. She still smokes cigarettes less than a pack a day. No fever. She has chronic anxiety and pain of left upper extremity and follows Dr. Forrest. She is on Ativan and hydrocodone as outpatient medications She denies any improvement in the pain since 6 AM. In ED, vitals shows BP 150s/111, pulse ox 93% on room air. She was given aspirin, IV morphine, haloperidol were given in the ED and started on IV heparin drip. Troponins elevated. Twelve-lead EKG shows no specific ST-T changes suggestive of acute ischemia [facility] Medical History Chronic pain Kidney disease Asthma Irregular heart beat Congestive heart failure (CHF) TIA (transient ischemic attack) Wears glasses Post-menopausal Arthritis History of renal disease High cholesterol DVT (deep venous thrombosis) Easy bruising Excessive bleeding Back pain Injury of back History of ulceration Difficulty chewing Gastric reflux Shortness of breath on exertion Hoarseness Chronic cough Leg cramps History of pain when walking History of edema History of echocardiogram History of stress test Cardiology follow-up encounter History of CHF (congestive heart failure) History of irregular heartbeat Chest pain Bullous emphysema COPD with asthma Esophagitis, unspecified without bleeding Unspecified combined 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 Other chronic pain Elevated troponin Sustained SVT Depression Osteoporosis Kidney stones Smoker Myocardial infarct History of non-ST elevation myocardial infarction (NSTEMI) (09/01/21) Essential hypertension Old anterior wall myocardial infarction Ischemic cardiomyopathy Opiate dependence Anxiety and depression TIA (transient ischemic attack) Obesity (BMI 30.0-34.9) EVELYN (obstructive sleep apnea) Personal history of transient ischemic attack (TIA), and cerebral infarction without residual deficits COPD (chronic obstructive pulmonary disease) Calculus of left kidney GERD (gastroesophageal reflux disease) Hyperlipidemia Atherosclerotic heart disease of [place] coronary artery without angina pectoris Tobacco abuse Home Medications ?Medication ?Instructions ?Recorded ?Last Taken ?Type inhalational spacing device #1 ea 02/17/23 Unknown Rx (Aerochamber MV spacer) tiotropium bromide 2.5 2 puff inhalation DAILY #4 grams 02/17/23 09/27/24 Rx mcg/actuation mist for inhalation (Spiriva Respimat) lorazepam 1 mg tablet (Ativan) 1 mg PO TID PRN anxiety 07/16/23 09/27/24 History gabapentin 400 mg capsule 400 mg PO Q6H 07/29/23 09/27/24 History nitroglycerin 0.4 mg sublingual 0.4 mg buccal Q5M PRN chest pain 07/29/23 Unknown History tablet sucralfate 1 gram tablet 1 g PO Q8H 07/29/23 09/27/24 History melatonin 3 mg capsule 3 mg PO QHS 09/05/23 09/27/24 History albuterol 90 mcg-budesonide 80 1 - 2 inh inhalation BID PRN 09/28/24 09/27/24 History mcg/actuation HFA aerosol inhaler shortness of breath (Airsupra) atorvastatin 40 mg tablet 40 mg PO QHS 09/28/24 09/27/24 History bisacodyl 5 mg tablet,delayed 5 mg PO DAILY PRN constipation 09/28/24 Unknown History release cholecalciferol (vitamin D3) 125 125 mcg PO DAILY 09/28/24 09/27/24 History mcg (5,000 unit) capsule hydrocodone-acetaminophen 5-325mg 1 tab PO Q4H 09/28/24 09/27/24 History 5mg-325mg lisinopril 5 mg tablet 5 mg PO DAILY 09/28/24 09/27/24 History polyethylene glycol 3350 17 17 g PO BID 09/28/24 09/27/24 History gram/dose oral powder promethazine 25 mg tablet 25 mg PO PRN PRN nausea and 09/28/24 Unknown History vomiting budesonide-formoterol HFA 160 1 puff inhalation BID #10.2 grams 09/30/24 Unknown Rx mcg-4.5 mcg/actuation aerosol inhaler (Symbicort) carvedilol 25 mg tablet 25 mg PO BID #120 tabs 10/04/24 Unknown Rx furosemide 40 mg tablet 40 mg PO QDAY #90 tabs 10/04/24 Unknown Rx clopidogrel 75 mg tablet 75 mg PO QDAY 01/13/25 Unknown History omeprazole 40 mg capsule,delayed 40 mg PO QDAY 01/13/25 Unknown History release potassium chloride 20 mEq 20 meq PO QDAY 01/13/25 Unknown History tablet,extended release sertraline 50 mg tablet 50 mg PO QDAY 01/13/25 Unknown History spironolactone 25 mg tablet 25 mg PO QDAY 01/13/25 Unknown History Allergy/AdvReac Type Severity Reaction Status Date / Time Iodinated Contrast Media Allergy SOB Verified 05/26/25 06:10 (iodine contrast) Family History Mother Hypertension CAD (coronary artery disease) CVA (cerebral vascular accident) Myocardial infarction Grandmother Myocardial infarction Surgical History History of cholecystectomy Hx of esophagogastroduodenoscopy History of cardiac catheterization History of hysterectomy History of left heart catheterization (01/20/22) History of total hysterectomy Hx of appendectomy Social History household members: none Smoking Status: Current some day smoker tobacco type: cigarettes alcohol intake: never substance use type: does not use ROS ROS Narrative Constitutional: Reports chronic fatigue and weakness. No fever. HEENT: Reports systems reviewed and no addt'l complaints, except as documented Respiratory/Chest: COPD, chronic smoker. Chronic wheezing. CVS: As described in HPI Gastrointestinal: Denies coffee ground emesis, hematemesis or vomiting Genitourinary: Denies burning urination or new urinary tract symptoms Musculoskeletal: Denies acute joint pain or limited range of motion. No acute injury Neurologic: Denies seizure-like symptoms. Psychiatric: Chronic pain syndrome of left upper extremity. On Ativan, anxiety and depression skin: No ulcer. No rash Endocrinology: Reports systems reviewed and no addt'l complaints, except as documented Hematologic/Lymphatic: Reports systems reviewed and no addt'l complaints, except as documented Rest 14 ROS are negative except as mentioned in HPI Vital Signs Vital Signs Vital Signs: 05/26/25 06:10 05/26/25 06:15 05/26/25 07:10 Temperature 98.0 F Temperature Source Oral Pulse Rate 76 72 Respiratory Rate 18 18 Respiratory Pattern Normal Blood Pressure 150/111 H 162/114 H Blood Pressure Mean 124 130 Pulse Ox 93 97 Oxygen Delivery Method Room Air 05/26/25 08:00 05/26/25 09:00 Temperature Temperature Source Pulse Rate 79 90 Respiratory Rate 18 16 Respiratory Pattern Blood Pressure 135/81 H 135/83 H Blood Pressure Mean 99 100 Pulse Ox 99 96 Oxygen Delivery Method Weight Weight: 177 lb 7.554 oz Body Mass Index (BMI) 33.5 Physical Exam Narrative General: Alert, Oriented x3, Cooperative HEENT: Atraumatic, PERRLA, EOMI, Normocephalic. Oral: No Gingival or Mucosal Lesions/ Ulcerations Neck: Supple, No JVD, Negative Carotid Bruits Chest wall/Lungs: Air entry severely diminished in both lungs. Bilateral gross wheezing. Mild dyspnea at rest Cardiovascular: Sinus rhythm. S1-S2 regular, soft systolic murmur Abdomen: Bowel Sounds Present, Soft, Non Tender, Non-Distended : No dysuria. No renal angle tenderness. No suprapubic tenderness. Extremities: No edema, Capillary Refill Less than 3 Seconds Skin: No rashes, No breakdown Musculoskeletal: ROM limited over left shoulder and upper extremity. No acute tenderness palpation of joints of extremities Neurological: Cranial nerves II-XII grossly intact, DTR 2+/4. No acute focal neurological deficit. Psych/Mental Status: Anxious, panic Results Lab / Micro Data 05/26/25 06:00 05/26/25 06:00 Labs: Laboratory Results - last 24 hr 05/26/25 06:00: WBC 8.4, RBC 4.15 L, Hgb 13.4, Hct 40.5, MCV 97.6, MCH 32.3 H, MCHC 33.1, RDW Std Deviation 50.5 H, RDW Coeff of Sariah 14.1, Plt Count 230, MPV 9.8, Immature Gran % (Auto) 0.200, Neut % (Auto) 31.2 L, Lymph % (Auto) 55.8 H, [place] % (Auto) 8.8, Eos % (Auto) 3.1, Baso % (Auto) 0.9, Absolute Neuts (auto) 2.6, Absolute Lymphs (auto) 4.71 H, Nucleated RBC % 0, Sodium 144, Potassium 4.2, Chloride 109 H, Carbon Dioxide 26.6, Anion Gap 9, BUN 16, Creatinine 0.90, Estim Creat Clear Calc 57.50, Est GFR (MDRD) Non-Af 70, BUN/Creatinine Ratio 18.1, Glucose 122 H, Calcium 9.2, Magnesium 2.2, Troponin T High Sens 18 H D, NT pro BNP II 2936 H 05/26/25 08:15: Troponin T Hi Sens 2 Hr 102 H* Imaging Radiology Impression Chest X-Ray 05/26/25 06:48 IMPRESSION: Perihilar airspace opacities may represent CHF, pulmonary edema or pneumonia. Small pleural effusion. Reading [facility] Assessment & Plan Assessment/Plan (1) NSTEMI, initial episode of care: PLAN: Plan Patient is a 68-year-old lady who presented with shortness of breath diagnosed with COPD with acute exacerbation admitted to regular nursing floor for further management 1. Atypical chest pain possible non-STEMI with contribution from panic/anxiety and COPD exacerbation: Patient is being admitted to PCU on telemetry. Started on baby aspirin, IV morphine and IV heparin drip. Home medication carvedilol, Plavix and atorvastatin regimen. Nitroglycerin ointment ordered. Twelve-lead EKG shows NSR 72 bpm, QTc 424 ms. QRS 128 ms. Troponins are 18, 102 and 598. proBNP about 3000. CELESTE risk score 5/7 with 26.6% risk of mortality from CT/recurrent ischemia event in next 2 weeks. Statistical Modeler consulted. Patient has significant contusion for anxiety and panic therefore IV Ativan 1 dose 0.5 mg ordered. Patient on Ativan 1 mg 3 times daily at home. 2. COPD exacerbation: Patient is on send she is on antibiotic but is not seen on patient's home medication. Chest x-ray initially reviewed and shows perihilar congestion/venous congestion consistent with CHF exacerbation. No specific consolidation seen. Patient is being managed on scheduled bronchodilator, IV Solu-Medrol, Mucinex, incentive spirometry and Pep. 3. CHF exacerbation: Started on IV Lasix. Heart failure core measures including intake and output, fluid restriction less than 1500 mL, daily weight monitoring, kidney and electrolytes monitoring. Last echo in July 2022 shows EF 30% moderately dilated LV, 1+ MR. 4. Peripheral arterial disease ? Patient is on antiplatelet therapy as well as statin therapy, atorvastatin continued 5. Dyslipidemia ?Patient is on statin therapy, continued at home dose 7. Hypertension ? Blood pressure elevated, home medications continued with dose adjustment as needed 8. Depression with anxiety - Patient on sertraline and lorazepam 1 mg p.o. 3 times daily as needed. Continued 9. Chronic pain syndrome ? Patient follows Dr. Forrest. On [place] at home. Patient's son stated that she is on sustained-release oxycodone or morphine but not found on the patient's home med list. 10. Hyperglycemia Glucose elevated 122. Probably due to recurrent Solu-Medrol/steroid 11. DVT prophylaxis ? On IV heparin drip Living will/advanced directive/end of life care: Patient does not have living will or advanced directive. His son present in the room is next to kin/power of pumper gauger for health. After discussion of benefits/risks procedures involved with full code, DNR CC arrest and DNR CC, the patient opted for full code. Patient does want artificial life support including intubation, tube feed, ventilator and/chest compression, central venous catheter, vasopressor and DC shock if needed Total time spent in [id number] encounter in discussion of advanced directive 17 minutes. Laboratory Results 05/26/25 06:00: WBC 8.4, RBC 4.15 L, Hgb 13.4, Hct 40.5, MCV 97.6, MCH 32.3 H, MCHC 33.1, RDW Std Deviation 50.5 H, RDW Coeff of Sariah 14.1, Plt Count 230, MPV 9.8, Immature Gran % (Auto) 0.200, Neut % (Auto) 31.2 L, Lymph % (Auto) 55.8 H, [place] % (Auto) 8.8, Eos % (Auto) 3.1, Baso % (Auto) 0.9, Absolute Neuts (auto) 2.6, Absolute Lymphs (auto) 4.71 H, Nucleated RBC % 0, PT 12.8, INR 0.9, Sodium 144, Potassium 4.2, Chloride 109 H, Carbon Dioxide 26.6, Anion Gap 9, BUN 16, Creatinine 0.90, Estim Creat Clear Calc 57.50, Est GFR (MDRD) Non-Af 70, BUN/Creatinine Ratio 18.1, Glucose 122 H, Calcium 9.2, Magnesium 2.2, Troponin T High Sens 18 H D, NT pro BNP II 2936 H 05/26/25 08:15: Phosphorus 4.5, Magnesium Cancelled, Total Bilirubin < 0.15, Direct Bilirubin < 0.08, AST 35 H, ALT 20, Alkaline Phosphatase 153 H, Troponin T Hi Sens 2 Hr 102 H*, Total Protein 6.0, Albumin 3.4, Globulin 2.6 05/26/25 11:00: APTT > 200.0 H*, Troponin T Hi Sens 4Hr 598 H* Clinical Impression(s) from Imaging Studies Chest X-Ray 05/26/25 06:48 IMPRESSION: Perihilar airspace opacities may represent CHF, pulmonary edema or pneumonia. Small pleural effusion. Charges/Coding Visit Charges Inpatient E&M: 36116 Init Hosp L3 Procedures Hospitalists Procedures: 81181 Advncd Care Plan 30 Min CELESTE Risk Score for UA/STEMI Assesmment (YES = 1) Age > or = 65: Yes > or = 3 CAD risk factors (HTN, Hypercholesterolemia, Diabetes, family hx, current smoker): Yes Known CAD (Stenosis > or = 50%): Yes ASA used in past 7 days: Yes Severe angina (> or = 2 episodes in 24 hrs): No EKG ST change > or = 0.5mm: No Positive cardiac markers: Yes Score CELESTE Risk Score of mortality/ recurrent ischemic event over the next 14 days: 5 = 26.6% - HIGH RISK
[2025-05-26] MEDS: Heparin Injection (Vial) 5,000 UNIT/ML VIAL 4000 UNIT IV (09:50)
[2025-05-26] MEDS: HEPARIN/D5w 25,000 UNITS 25,000 UNITS/250 ML IV.SOLN. 9.7 UNITS CONT INF (09:51)
--- NOTE | 2025-05-26 10:44 | EKG12_ITS ---
Test Reason : REPEAT Blood Pressure : */* mmHG Vent. Rate : 73 BPM Atrial Rate : 73 BPM P-R Int : 130 ms QRS Dur : 100 ms QT Int : 386 ms P-R-T Axes : 51 27 93 degrees QTcB Int : 425 ms Normal sinus rhythm Cannot rule out Anteroseptal infarct , age undetermined Abnormal ECG Confirmed by CECI MARTINEZ, GEO ([id number]), online content editor SANTIAGO SMALL ([id number]) on 05/29/2025 8:02:59 AM Referred By: Confirmed By: GEO ORNELAS MD
[2025-05-26 11:02] LABS: Prothrombin Time (Protime)PT. 12.8 SECONDS (11.7-14.9)
[2025-05-26 11:23] LABS: AST(SGOT) 35 U/L (<=31); Alanine Aminotransfer ALT/SGPT 20 U/L (<=34); Albumin, Serum 3.4 g/dL (3.4-4.8); Alkaline Phosphatase 153 U/L (35-104); Bilirubin, Direct < 0.08 mg/dL (0.00-0.30); Globulin 2.6 g/dL (2.2-4.2)
[2025-05-26 11:33] LABS: Partial Thromboplast Time > 200.0 Seconds (24.1-36.2)
--- NOTE | 2025-05-26 12:06 | ECHOCS_ITS ---
Reason For Study Reason For Study: NSTEMI Procedure This was a 2D Doppler, Color Flow transthoracic echocardiogram. The study was technically difficult. Contrast injection was performed. Exam performed portable in patient room. Left Ventricle Normal LV size. Thrombus adherent to the anterior apical wall. The left ventricular ejection fraction is 25 %. Severe segmental systolic dysfunction (see wall motion). [place] : Akinetic. Lateral [place] : Akinetic. Mid-Lateral : Hypokinetic. Mid-anteroseptal : Severely Hypokinetic. Inferior [place] : Akinetic. Anterior [place] : Akinetic. Right Ventricle Normal RV size. Normal systolic function. Atria The left atrium is moderately enlarged. Normal right atrium. Mitral Valve Normal mitral valve. Tricuspid Valve Normal tricuspid valve. Mild to moderate (1-2+) tricuspid valve insufficiency. Pulmonary artery systolic pressure is 45 mmHg. Aortic Valve Trisinus/trileaflet aortic valve. Pulmonic Valve The pulmonic valve is not well visualized. Great Vessels Normal aortic root. The pulmonary artery is normal size. Inferior vena cava collapse with respiration. Pericardium/Pleural No pericardial effusion. Medication Diluted definity 4ml given slow IV push to enhance endocardial definition. MMode/2D Measurements & Calculations RVDd: 3.3 cm LAV(MOD-bp): 87.3 ml LVAd ap4: 41.1 cm2 LAV(MOD-bp) Indexed: 46.8 ml/m2 LVLd ap4: 8.1 cm LAV(MOD-sp2): 84.1 ml EDV(MOD-sp4): 166.3 ml LAV(MOD-sp4): 79.8 ml EDV(sp4-el): 176.2 ml LVAs ap4: 36.7 cm2 LVLs ap4: 8.4 cm ESV(MOD-sp4): 126.6 ml ESV(sp4-el): 136.4 ml EF(MOD-sp4): 23.9 % EF(sp4-el): 22.6 % SV(MOD-sp4): 39.7 ml SV(sp4-el): 39.8 ml LA A4 area: 25.0 cm2 SI(MOD-sp4): 21.3 ml/m2 RA A4 area: 10.2 cm2 Time Measurements MV dec time: 0.09 sec Doppler Measurements & Calculations MV E max bryson: 83.9 cm/sec Lat Peak E' Bryson: 7.0 cm/sec Med Peak E' Bryson: 4.3 cm/sec MV A max bryson: 83.6 cm/sec E/E' lat: 11.9 E/E' med: 19.7 MV E/A: 1.0 MV V2 max: 110.4 cm/sec MV dec slope: 1071 cm/sec2 Ao V2 max: 123.6 cm/sec MV max P.9 mmHg Ao max P.1 mmHg MV V2 mean: 54.4 cm/sec Ao V2 mean: 79.9 cm/sec MV mean P.5 mmHg Ao mean P.0 mmHg MV V2 VTI: 28.2 cm Ao V2 VTI: 24.3 cm AV (velocity ratio): 0.59 LV V1 max: 77.5 cm/sec TR max bryson: 322.3 cm/sec LV V1 max P.4 mmHg TR max P.6 mmHg LV V1 mean P.4 mmHg LV V1 mean: 55.9 cm/sec LV V1 VTI: 14.3 cm ECHO/Echo Complete W/ Contrast Interpretation Summary Normal LV size. The left ventricular ejection fraction is 25 %. Thrombus adherent to the anterior apical wall. Severe segmental systolic dysfunction (see wall motion). Ordering Physician: Regan Russo Referring Physician: Sandy Barbosa M.D. Performed By: Rehana Gomes RCS
--- NOTE | 2025-05-26 12:06 | EKG12_ITS ---
Test Reason : CP Blood Pressure : */* mmHG Vent. Rate : 72 BPM Atrial Rate : 72 BPM P-R Int : 126 ms QRS Dur : 106 ms QT Int : 388 ms P-R-T Axes : 55 24 59 degrees QTcB Int : 424 ms Normal sinus rhythm Cannot rule out Anteroseptal infarct (cited on or before 17-Jan-2022) Abnormal ECG Confirmed by GEO ORNELAS MD ([id number]), medical editor SANTIAGO SMALL ([id number]) on 05/29/2025 8:09:05 AM Referred By: HERLINDA Confirmed By: GEO ORNELAS MD
[2025-05-26 12:08] LABS: Troponin T High Sens 4 HR 598 ng/L (<=14)
[2025-05-26] MEDS: Azithromycin 500 MG in 0.9% Normal Saline (250mL Bag) 250 ML 250 MG IV (13:16)
[2025-05-26] MEDS: Nitroglycerin Oint 1 INCH PACKET TD ×2 (14:05→20:26)
[2025-05-26] MEDS: MELATONIN 3 MG TABLET PO (20:39)
[2025-05-26] MEDS: Senna/Docusate Sodium 1 Tablet 2 TABLET PO (20:40)
[2025-05-26 21:14] LABS: Partial Thromboplast Time 39.0 Seconds (24.1-36.2)
[2025-05-26] MEDS: Heparin Nomogram Adjustment 5,000 UNIT/ML VIAL IV (21:28)
--- NOTE | 2025-05-26 23:45 | PCM.HOSP.N ---
Hospitalist Note Notified of 8beat run of VT, observed on telemetry, without acute change in presentation. Reviewed labs from admission: K 4.2, Ph 4.5, Mg 2.2, troponin max 598, proBNP 2936.
[2025-05-27] VITALS (11 sets, daily range): BP systolic 102–132; BP diastolic 57–91; PULSE 64–87; RESP 16–20; TEMP 36.1–37.5; O2SAT 92–96; BMI 28.7
[2025-05-27] MEDS: Nitroglycerin Oint 1 INCH PACKET TD ×2 (02:38→09:53)
[2025-05-27 04:01] LABS: Hematocrit 38.0 % (37-47); Hemoglobin 12.5 g/dL (12.0-15.0); Immature Granulocytes Count 0.030 X10^3/uL (0.0-0.0); Mean Corp Hgb Conc 32.9 g/dL (32-36); Mean Corpuscular Volume 96.7 fL (81-99); Mean Platelet Vol. 9.5 fl (6.2-12.0); NRBC Flagged by Analyzer 0 % (0-5); Platelet Count 174 K/mm3 (150-450); RBC Distribution Width CV 13.8 % (11.6-14.6); RBC Distribution Width SD 48.8 fl (35.1-43.9); Red Blood Count 3.93 M/mm3 (4.2-5.4); White Blood Count 7.5 K/mm3 (4.4-11.0)
[2025-05-27 04:30] LABS: Partial Thromboplast Time 68.6 Seconds (24.1-36.2)
[2025-05-27 04:35] LABS: Anion Gap 8 (5-15); BUN 17 mg/dL (4-19); BUN/Creat Ratio 26.6 RATIO (10-20); Calcium,Total 9.5 mg/dL (7.6-11.0); Carbon Dioxide 28.8 mmol/L (21.0-32.0); Chloride 103 mmol/L (98-108); Cholesterol 188 mg/dL (<=200); Estimated Creatinine Clearance 69.57 ml/min (50-250); Glucose 146 mg/dL (70-99); Low Density Lipoprotein Calc. 123 mg/dL; Potassium 4.3 mmol/L (3.3-5.1); Triglycerides 68 mg/dL; Very Low Density Lipoprotein 14 mg/dL (5-40); cholesterol:hdl ratio screen 3.66
[2025-05-27] MEDS: Aspirin E.C. 81 MG Tablet PO (09:49)
[2025-05-27] MEDS: Senna/Docusate Sodium 1 Tablet 2 TABLET PO (09:50)
[2025-05-27] MEDS: Cholecalciferol (Vit D3) 125 MCG CAPSULE (5,000 UNITS) PO (09:50)
--- NOTE | 2025-05-27 10:03 | PCM.CONS.C ---
Assessment & Plan Assessment/Plan (1) NSTEMI, initial episode of care: PLAN: Patient presents with atypical chest discomfort which has been chronic but at this time. My recommendation is for us to continue to follow her and likely undergo a repeat cardiac catheterization on Thursday and depending on the findings further recommendations will be made. (2) LV (left ventricular) mural thrombus: PLAN: She does have a previous history of a left ventricular mural thrombus. After the cardiac catheterization I will recommend that we place her on anticoagulation likely with DOAC and see how she does. (3) Ischemic cardiomyopathy: PLAN: She does have a history of ischemic cardiomyopathy and will institute guideline directed medical therapy with carvedilol, an ARB or ARNI, and an SGLT2 inhibitor. (4) Essential hypertension: PLAN: Her blood pressure appears to be under fair control the plan to be to continue this without making any major changes. (5) Hyperlipidemia: QUALIFIERS: Hyperlipidemia type: unspecified Qualified Code(s): E78.5 - Hyperlipidemia, unspecified PLAN: She does have a history of hyperlipidemia and will continue with high intensity statin. HPI Consult Data Date of Consult: 05/27/25 HPI Narrative HPI Narrative: ECHO KERNS, is a 69 F who presents to the emergency room with left-sided chest discomfort as well as left shoulder discomfort. She has a history of chronic arthritis and anxiety and is being followed up by the pain management physicians. Patient has history of nonischemic cardiomyopathy with an EF of around 25% with coronary angiogram done in January 2022 revealing mild nonobstructive coronary artery disease. She also has history of peripheral vascular disease, COPD dyslipidemia, hypertension, active tobacco abuse. It appears that she is not compliant with medications either. She was supposed to be on Xarelto but it is unclear if she was taking it regularly. Her 2D echo revealed an EF of around 20% with LV apical thrombus. From a cardiac standpoint, the patient had been doing well. She does acknowledge chest pain-midsternal this does radiate to her left arm. She states this occurs with exertion and at rest. She does acknowledge SOB with exertion and at rest. She denies Orthopnea, and PND. She does not have bleeding issues; no blood in urine, stool or nosebleeds. She denies any decrease in energy level, myalgias, or claudication. She does not have edema, or sudden weight gain. She states that she does have lightheadedness when walking. During this visit her EKG did not demonstrate any significant changes but her cardiac enzymes were abnormal and she also had an echocardiogram which demonstrated reduced ejection fraction of 20% with a probable apical thrombus. [facility] Medical History Chronic pain Kidney disease Asthma Irregular heart beat Congestive heart failure (CHF) TIA (transient ischemic attack) Wears glasses Post-menopausal Arthritis History of renal disease High cholesterol DVT (deep venous thrombosis) Easy bruising Excessive bleeding Back pain Injury of back History of ulceration Difficulty chewing Gastric reflux Shortness of breath on exertion Hoarseness Chronic cough Leg cramps History of pain when walking History of edema History of echocardiogram History of stress test Cardiology follow-up encounter History of CHF (congestive heart failure) History of irregular heartbeat Chest pain Bullous emphysema COPD with asthma Esophagitis, unspecified without bleeding Unspecified combined 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 Other chronic pain Elevated troponin Sustained SVT Depression Osteoporosis Kidney stones Smoker Myocardial infarct History of non-ST elevation myocardial infarction (NSTEMI) (09/01/21) Essential hypertension Old anterior wall myocardial infarction Ischemic cardiomyopathy Opiate dependence Anxiety and depression TIA (transient ischemic attack) Obesity (BMI 30.0-34.9) EVELYN (obstructive sleep apnea) Personal history of transient ischemic attack (TIA), and cerebral infarction without residual deficits COPD (chronic obstructive pulmonary disease) Calculus of left kidney GERD (gastroesophageal reflux disease) Hyperlipidemia Atherosclerotic heart disease of [place] coronary artery without angina pectoris Tobacco abuse Home Medications ?Medication ?Instructions ?Recorded ?Last Taken ?Type inhalational spacing device #1 ea 02/17/23 Unknown Rx (Aerochamber MV spacer) tiotropium bromide 2.5 2 puff inhalation DAILY #4 grams 02/17/23 09/27/24 Rx mcg/actuation mist for inhalation (Spiriva Respimat) lorazepam 1 mg tablet (Ativan) 1 mg PO TID PRN anxiety 07/16/23 09/27/24 History gabapentin 400 mg capsule 400 mg PO Q6H 07/29/23 09/27/24 History nitroglycerin 0.4 mg sublingual 0.4 mg buccal Q5M PRN chest pain 07/29/23 Unknown History tablet sucralfate 1 gram tablet 1 g PO Q8H 07/29/23 09/27/24 History melatonin 3 mg capsule 3 mg PO QHS 09/05/23 09/27/24 History albuterol 90 mcg-budesonide 80 1 - 2 inh inhalation BID PRN 09/28/24 09/27/24 History mcg/actuation HFA aerosol inhaler shortness of breath (Airsupra) atorvastatin 40 mg tablet 40 mg PO QHS 09/28/24 09/27/24 History bisacodyl 5 mg tablet,delayed 5 mg PO DAILY PRN constipation 09/28/24 Unknown History release cholecalciferol (vitamin D3) 125 125 mcg PO DAILY 09/28/24 09/27/24 History mcg (5,000 unit) capsule hydrocodone-acetaminophen 5-325mg 1 tab PO Q4H 09/28/24 09/27/24 History 5mg-325mg lisinopril 5 mg tablet 5 mg PO DAILY 09/28/24 09/27/24 History polyethylene glycol 3350 17 17 g PO BID 09/28/24 09/27/24 History gram/dose oral powder promethazine 25 mg tablet 25 mg PO PRN PRN nausea and 09/28/24 Unknown History vomiting budesonide-formoterol HFA 160 1 puff inhalation BID #10.2 grams 09/30/24 Unknown Rx mcg-4.5 mcg/actuation aerosol inhaler (Symbicort) carvedilol 25 mg tablet 25 mg PO BID #120 tabs 10/04/24 Unknown Rx furosemide 40 mg tablet 40 mg PO QDAY #90 tabs 10/04/24 Unknown Rx clopidogrel 75 mg tablet 75 mg PO QDAY 01/13/25 Unknown History omeprazole 40 mg capsule,delayed 40 mg PO QDAY 01/13/25 Unknown History release potassium chloride 20 mEq 20 meq PO QDAY 01/13/25 Unknown History tablet,extended release sertraline 50 mg tablet 50 mg PO QDAY 01/13/25 Unknown History spironolactone 25 mg tablet 25 mg PO QDAY 01/13/25 Unknown History Allergy/AdvReac Type Severity Reaction Status Date / Time Iodinated Contrast Media Allergy SOB Verified 05/26/25 06:10 (iodine contrast) Family History Mother Hypertension CAD (coronary artery disease) CVA (cerebral vascular accident) Myocardial infarction Grandmother Myocardial infarction Surgical History History of cholecystectomy Hx of esophagogastroduodenoscopy History of cardiac catheterization History of hysterectomy History of left heart catheterization (01/20/22) History of total hysterectomy Hx of appendectomy Social History household members: none Smoking Status: Current some day smoker tobacco type: cigarettes alcohol intake: never substance use type: does not use ROS Constitutional Constitutional: Denies fever(s) or weight loss Eyes Eyes: Reports systems reviewed and no addt'l complaints, except as documented ENT HEENT: Reports systems reviewed and no addt'l complaints, except as documented Cardiovascular Cardiovascular: Reports chest pain at rest and chest pain with activity; Denies dyspnea at rest, dyspnea on exertion, edema, palpitations or paroxysmal nocturnal dyspnea Respiratory/Chest Respiratory/Chest: Reports shortness of breath at rest; Denies dyspnea on exertion, productive cough or shortness of breath with exertion Gastrointestinal Gastrointestinal: Denies change in bowel habits, nausea, vomiting or weight changes Genitourinary Genitourinary: Denies difficulty urinating Musculoskeletal Musculoskeletal: Denies joint stiffness or muscle weakness Integumentary Integumentary: Denies lesions Neurologic Neurologic: Denies dizziness or syncope Psychiatric Psychiatric: Denies anxiety Endocrine Endocrinology: Denies excessive sweating or fatigue Hematologic/Lymphatic Hematologic/Lymphatic: Denies anemia Allergic/Immunologic Allergic/Immunologic: Denies seasonal rhinorrhea Physical Exam Const alert, oriented x3 and no apparent distress General Appearance: cooperative HEENT hearing grossly normal bilaterally Head and Scalp: atraumatic Eyes EOMs intact bilaterally Neck General: normal visual inspection Chest inspection of chest normal and palpation of chest normal Resp normal respiratory effort Auscultation: clear to auscultation bilaterally Cardio regular rate, regular rhythm, S1 normal heart sound and S2 normal heart sound Jugular Venous Distention: JVD GI normal to inspection, nondistended, normoactive bowel sounds Extremity normal capillary refill and no pedal edema Peripheral Pulses: Yes pulses 2+ throughout and femoral pulses present Skin no rashes or lesions noted Neuro oriented x3 and CN's II-XII intact bilaterally Psych Appearance: grossly normal and appropriate Objective Data Vital Signs: Vital Signs Temp Pulse Resp BP Pulse Ox O2 Del Method O2 Flow Rate 98.1 F 79 18 118/76 94 Nasal Cannula 3 05/27/25 09:39 05/27/25 09:39 05/27/25 09:39 05/27/25 09:39 05/27/25 09:39 05/27/25 09:39 05/27/25 09:39 Oxygen Flow Rate (L/min) 3 Oxygen Delivery Method Nasal Cannula Weight: 172 lb 6.424 oz Body Mass Index (BMI) 28.7 Intake & Output: Intake and Output for Last 24 Hours 05/25/25 05/26/25 05/27/25 23:59 23:59 23:59 Intake Total 316.62 / 716.62 765.86 / 765.86 Output Total 1900 / 1900 Balance 316.62 / -383.38 -1134.14 / -1134.14 Lab / Micro Data 05/27/25 03:51 05/27/25 03:51 Labs: Laboratory Results - last 24 hr 05/26/25 06:00: PT 12.8, INR 0.9 05/26/25 08:15: Phosphorus 4.5, Magnesium Cancelled, Total Bilirubin < 0.15, Direct Bilirubin < 0.08, AST 35 H, ALT 20, Alkaline Phosphatase 153 H, Total Protein 6.0, Albumin 3.4, Globulin 2.6 05/26/25 11:00: APTT > 200.0 H*, Troponin T Hi Sens 4Hr 598 H* 05/26/25 20:23: APTT 39.0 H 05/27/25 03:51: WBC 7.5, RBC 3.93 L, Hgb 12.5, Hct 38.0, MCV 96.7, MCH 31.8, MCHC 32.9, RDW Std Deviation 48.8 H, RDW Coeff of Sariah 13.8, Plt Count 174, MPV 9.5, Immature Gran % (Auto) 0.400, Neut % (Auto) 81.6 H, Lymph % (Auto) 15.8 L, [place] % (Auto) 1.9, Eos % (Auto) 0.0, Baso % (Auto) 0.3, Absolute Neuts (auto) 6.1, Absolute Lymphs (auto) 1.18, Nucleated RBC % 0, APTT 68.6 H, Sodium 140, Potassium 4.3, Chloride 103, Carbon Dioxide 28.8, Anion Gap 8, BUN 17, Creatinine 0.65 L, Estim Creat Clear Calc 69.57, Est GFR (MDRD) Non-Af 96, BUN/Creatinine Ratio 26.6 H, Glucose 146 H, Calcium 9.5, Triglycerides 68, Cholesterol 188, LDL Cholesterol, Calc 123, VLDL Cholesterol 14, HDL Cholesterol 51, Cholesterol/HDL Ratio 3.66, TSH 0.505 Micro: Microbiology 05/26/25 14:14 Mucosa - Nasopharyngeal Respiratory Panel (PCR) - Final 05/26/25 13:12 Nasal Secretion MRSA (PCR) - Final 05/26/25 13:12 Mucosa - Nose Coronavirus COVID-19 PCR - Final Cardiology Labs/Tests 05/26/25 06:00: PT 12.8, INR 0.9 05/26/25 08:15: Phosphorus 4.5, Magnesium Cancelled, Total Bilirubin < 0.15, Direct Bilirubin < 0.08 05/26/25 11:00: APTT > 200.0 H* 05/26/25 20:23: APTT 39.0 H 05/27/25 03:51: WBC 7.5, RBC 3.93 L, Hgb 12.5, Hct 38.0, MCV 96.7, MCH 31.8, MCHC 32.9, Plt Count 174, MPV 9.5, Immature Gran % (Auto) 0.400, Neut % (Auto) 81.6 H, Lymph % (Auto) 15.8 L, [place] % (Auto) 1.9, Eos % (Auto) 0.0, Baso % (Auto) 0.3, Absolute Neuts (auto) 6.1, Nucleated RBC % 0, APTT 68.6 H, Sodium 140, Potassium 4.3, Chloride 103, Carbon Dioxide 28.8, Anion Gap 8, BUN 17, Creatinine 0.65 L, Est GFR (MDRD) Non-Af 96, BUN/Creatinine Ratio 26.6 H, Glucose 146 H, Calcium 9.5, Triglycerides 68, Cholesterol 188, VLDL Cholesterol 14, HDL Cholesterol 51, Cholesterol/HDL Ratio 3.66 Rhythm: EKG: ECHO: Stress Test: Cardiac Cath: PCI: CT Surgery: Holter monitor: EPS: PPM: CXR: Chest CT Scan: Radiography Diagnostic Testing: Radiology Impression Echocardiogram 05/26/25 12:06 Interpretation Summary Normal LV size. The left ventricular ejection fraction is 25 %. Thrombus adherent to the anterior apical wall. Severe segmental systolic dysfunction (see wall motion). Ordering Physician: Regan Russo Referring Physician: Sandy Barbosa M.D. Performed By: Rehana Gomes RCS STE Risk Score for UA/STEMI Assesmment (YES = 1) Risk Stratification Applicable: Yes Age > or = 65: Yes > or = 3 CAD risk factors (HTN, Hypercholesterolemia, Diabetes, family hx, current smoker): Yes Known CAD (Stenosis > or = 50%): No ASA used in past 7 days: Yes Severe angina (> or = 2 episodes in 24 hrs): No EKG ST change > or = 0.5mm: No Positive cardiac markers: Yes Score CELESTE Risk Score of mortality/ recurrent ischemic event over the next 14 days: 4 = 19.9% - Intermediate
[2025-05-27] MEDS: Azithromycin 500 MG in 0.9% Normal Saline (250mL Bag) 250 ML 250 MG IV (11:25)
[2025-05-27 12:07] LABS: Partial Thromboplast Time 52.0 Seconds (24.1-36.2)
--- NOTE | 2025-05-27 12:13 | CASEMGMT ---
Addendum entered by Nikia Kelly 05/27/25 12:58: Social Work SW sent updates to [facility], called and message left. SW will continue to follow. STEVE Beasley Original Note: Social Work SW met w/pt in room, reviewed prior level of function and anticipated discharge plan. Pt is here from [facility], however the only thing they help her w/is medication. PCP: Dr. Barbosa Specialists: Dr. Curtis--cardiology, Dr. Rodríguez--surgeon Preferred Pharmacy: [facility] Insurance/Prescription Benefit: [employer] Living Will/HPOA: Pt has not completed. She would like to make her son POValentin, but not up for doing today. Pt may be up for completing the documents on Thursday. LNOK: Son, daughter Living Arrangements: Pt in assisted living at [facility], in an upstairs apartment and uses the elevator. Though pt in [place], she is independent with ADLS other than med management. She makes her own meals, does not eat their food. Transportation: Family will transport or pt will get transport through her insurance. DME: None HHC/SNF: No history of HHC. Pt has been to [place] and [facility] in the past. PLAN: Pt plans to return to [place] at discharge. It is anticipated pt will be here through the weekend, SW will follow up Thursday w/[facility]. SW will send some clinical information over later today. STEVE Beasley
[2025-05-27] MEDS: 0.9% Saline Lock 10 ML Syringe IV ×3 (13:12→18:00)
--- NOTE | 2025-05-27 13:25 | PN.HOSP_ITS ---
Reason for Visit Chief Complaint: Left-sided chest pain, shoulder pain and shortness of breath since yesterday morning. Objective Data Objective Data Vital Signs: Vital Signs Temp Pulse Resp BP Pulse Ox O2 Del Method O2 Flow Rate 98.1 F 87 19 H 118/76 94 Nasal Cannula 3 05/27/25 09:39 05/27/25 11:22 05/27/25 11:22 05/27/25 09:39 05/27/25 09:39 05/27/25 09:39 05/27/25 09:39 Oxygen Flow Rate (L/min) 3 Oxygen Delivery Method Nasal Cannula Weight: 172 lb 6.424 oz Body Mass Index (BMI) 28.7 Intake & Output: Intake and Output for Last 24 Hours 05/25/25 05/26/25 05/27/25 23:59 23:59 23:59 Intake Total 316.62 / 716.62 1076.49 / 1076.49 Output Total 1900 / 1900 Balance 316.62 / -383.38 -823.51 / -823.51 Lab / Micro Data 05/27/25 03:51 05/27/25 03:51 Labs: Laboratory Results - last 24 hr 05/26/25 20:23: APTT 39.0 H 05/27/25 03:51: WBC 7.5, RBC 3.93 L, Hgb 12.5, Hct 38.0, MCV 96.7, MCH 31.8, MCHC 32.9, RDW Std Deviation 48.8 H, RDW Coeff of Sariah 13.8, Plt Count 174, MPV 9.5, Immature Gran % (Auto) 0.400, Neut % (Auto) 81.6 H, Lymph % (Auto) 15.8 L, [place] % (Auto) 1.9, Eos % (Auto) 0.0, Baso % (Auto) 0.3, Absolute Neuts (auto) 6.1, Absolute Lymphs (auto) 1.18, Nucleated RBC % 0, APTT 68.6 H, Sodium 140, Potassium 4.3, Chloride 103, Carbon Dioxide 28.8, Anion Gap 8, BUN 17, C reatinine 0.65 L, Estim Creat Clear Calc 69.57, Est GFR (MDRD) Non-Af 96, B UN/Creatinine Ratio 26.6 H, Glucose 146 H, Calcium 9.5, Triglycerides 68, Cholesterol 188, LDL Cholesterol, Calc 123, VLDL Cholesterol 14, HDL Cholesterol 51, Cholesterol/HDL Ratio 3.66, TSH 0.505 05/27/25 11:40: APTT 52.0 H Micro: Microbiology 05/26/25 14:14 Mucosa - Nasopharyngeal Respiratory Panel (PCR) - Final 05/26/25 13:12 Nasal Secretion MRSA (PCR) - Final 05/26/25 13:12 Mucosa - Nose Coronavirus COVID-19 PCR - Final Radiography Diagnostic Testing: Radiology Impression Echocardiogram 05/26/25 12:06 Interpretation Summary Normal LV size. The left ventricular ejection fraction is 25 %. Thrombus adherent to the anterior apical wall. Severe segmental systolic dysfunction (see wall motion). Ordering Physician: Regan Russo Referring Physician: Sandy Barbosa M.D. Performed By: Rehana Gomes RCS Physical Exam Narrative Seen and examined. Shortness of breath and chest pain is better. Patient is found to have LV mural thrombus. Currently on IV heparin drip. EF 25%. Physical exam General: Alert, Oriented x3, Cooperative HEENT: Atraumatic, PERRLA, EOMI, Normocephalic. Oral: No Gingival or Mucosal Lesions/ Ulcerations Neck: Supple, No JVD, Negative Carotid Bruits Chest wall/Lungs: Air entry severely diminished in both lungs. Dyspnea at rest improved. Wheezing improved Cardiovascular: Sinus rhythm. S1-S2 regular, soft systolic murmur Abdomen: Bowel Sounds Present, Soft, Non Tender, Non-Distended : No dysuria. No renal angle tenderness. No suprapubic tenderness. Extremities: No edema, Capillary Refill Less than 3 Seconds Skin: No rashes, No breakdown Musculoskeletal: ROM limited over left shoulder and upper extremity. No acute tenderness palpation of joints of extremities Neurological: Cranial nerves II-XII grossly intact, DTR 2+/4. No acute focal neurological deficit. Psych/Mental Status: Anxious, flat affect Assessment & Plan Assessment/Plan (1) NSTEMI, initial episode of care: PLAN: Plan Patient is a 68-year-old lady who presented with shortness of breath diagnosed with COPD with acute exacerbation admitted to regular nursing floor for further management 1. Atypical chest pain possible non-STEMI with contribution from panic/anxiety and COPD exacerbation: Patient is being admitted to PCU on telemetry. Started on baby aspirin, IV morphine and IV heparin drip. Home medication carvedilol, Plavix and atorvastatin regimen. Nitroglycerin ointment ordered. Twelve-lead EKG shows NSR 72 bpm, QTc 424 ms. QRS 128 ms. Troponins are 18, 102 and 598. proBNP about 3000. CELESTE risk score 5/7 with 26.6% risk of mortality from [place]/recurrent ischemia event in next 2 weeks. Crew Person consulted. Patient has significant contusion for anxiety and panic therefore IV Ativan 1 dose 0.5 mg ordered. Patient on Ativan 1 mg 3 times daily at home. 05/27: Seen by chemical handler. Atypical chest discomfort which may be chronic. Crew Person recommended cardiac cath on Thursday. Patient has previous history of LV mural thrombus and echo corroborates that. On IV heparin drip and recommended DOAC after cardiac cath 2. COPD exacerbation: Patient is on send she is on antibiotic but is not seen on patient's home medication. Chest x-ray initially reviewed and shows perihilar congestion/venous congestion consistent with CHF exacerbation. No specific consolidation seen. Patient is being managed on scheduled bronchodilator, IV Solu-Medrol, Mucinex, incentive spirometry and Pep. 05/27: Respiratory panel MRSA nasal screen and COVID tests are negative. Continue bronchodilator and steroid. Encouraged incentive spirometry. 3. CHF exacerbation: Started on IV Lasix. Heart failure core measures including intake and output, fluid restriction less than 1500 mL, daily weight monitoring, kidney and electrolytes monitoring. Last echo in July 2022 shows EF 30% moderately dilated LV, 1+ MR. 05/27: Lipid profile shows LDL 123. HDL normal. TSH normal. Echo shows EF 25%. Continue guideline directed medical therapy with carvedilol, ARNI and SGLT inhibitor. Lisinopril discontinued 4. Peripheral arterial disease ? Patient is on antiplatelet therapy as well as statin therapy, atorvastatin continued 5. Dyslipidemia ?Patient is on statin therapy, continued at home dose 7. Hypertension ? Blood pressure elevated, home medications continued with dose adjustment as needed 8. Depression with anxiety - Patient on sertraline and lorazepam 1 mg p.o. 3 times daily as needed. Continued 9. Chronic pain syndrome ? Patient follows Dr. Forrest. On [place] at home. Patient's son stated that she is on sustained-release oxycodone or morphine but not found on the patient's home med list. 10. Hyperglycemia Glucose elevated 122. Probably due to recurrent Solu-Medrol/steroid 11. DVT prophylaxis ? On IV heparin drip Living will/advanced directive/end of life care: Patient does not have living will or advanced directive. His son present in the room is next to kin/power of disability attorney for health. After discussion of benefits/risks procedures involved with full code, DNR CC arrest and DNR CC, the patient opted for full code. Patient does want artificial life support including intubation, tube feed, ventilator and/chest compression, central venous catheter, vasopressor and DC shock if needed Microbiology Past 72 Hours 05/26/25 14:14 Mucosa - Nasopharyngeal Respiratory Panel (PCR) - Final 05/26/25 13:12 Nasal Secretion MRSA (PCR) - Final 05/26/25 13:12 Mucosa - Nose Coronavirus COVID-19 PCR - Final Laboratory Results 05/26/25 20:23: APTT 39.0 H 05/27/25 03:51: WBC 7.5, RBC 3.93 L, Hgb 12.5, Hct 38.0, MCV 96.7, MCH 31.8, MCHC 32.9, RDW Std Deviation 48.8 H, RDW Coeff of Sariah 13.8, Plt Count 174, MPV 9.5, Immature Gran % (Auto) 0.400, Neut % (Auto) 81.6 H, Lymph % (Auto) 15.8 L, [place] % (Auto) 1.9, Eos % (Auto) 0.0, Baso % (Auto) 0.3, Absolute Neuts (auto) 6.1, Absolute Lymphs (auto) 1.18, Nucleated RBC % 0, APTT 68.6 H, Sodium 140, Potassium 4.3, Chloride 103, Carbon Dioxide 28.8, Anion Gap 8, BUN 17, C reatinine 0.65 L, Estim Creat Clear Calc 69.57, Est GFR (MDRD) Non-Af 96, B UN/Creatinine Ratio 26.6 H, Glucose 146 H, Calcium 9.5, Triglycerides 68, Cholesterol 188, LDL Cholesterol, Calc 123, VLDL Cholesterol 14, HDL Cholesterol 51, Cholesterol/HDL Ratio 3.66, TSH 0.505 05/27/25 11:40: APTT 52.0 H Clinical Impression(s) from Imaging Studies Chest X-Ray 05/26/25 06:48 IMPRESSION: Perihilar airspace opacities may represent CHF, pulmonary edema or pneumonia. Small pleural effusion. Charges/Coding Visit Charges Inpatient E&M: 95452 Subs Hosp L2
[2025-05-27] MEDS: Nicotine (PBKC) 21 MG Patch TD (16:39)
[2025-05-27] MEDS: HEPARIN/D5w 25,000 UNITS 25,000 UNITS/250 ML IV.SOLN. 9.1 UNITS CONT INF (18:43)
[2025-05-27 19:11] LABS: Partial Thromboplast Time 52.2 Seconds (24.1-36.2)
[2025-05-27] MEDS: SACUBITRIL/VALSARTAN 24/26 MG TABLET 0.5 EACH PO (21:25)
[2025-05-28] VITALS (9 sets, daily range): BP systolic 95–130; BP diastolic 58–80; PULSE 66–81; RESP 16–20; TEMP 36.6–37.1; O2SAT 92–95; BMI 28.0
[2025-05-28 00:57] LABS: Partial Thromboplast Time 50.0 Seconds (24.1-36.2)
[2025-05-28] MEDS: 0.9% Saline Lock 10 ML Syringe IV ×7 (06:10→20:02)
[2025-05-28 08:17] LABS: Partial Thromboplast Time 108.1 Seconds (24.1-36.2)
--- NOTE | 2025-05-28 08:22 | PN.CARD_ITS ---
Subjective Subjective Patient seen and evaluated. Objective Data Vital Signs: Vital Signs Temp Pulse Resp BP Pulse Ox O2 Del Method O2 Flow Rate 98.7 F 77 20 H 130/80 H 93 Nasal Cannula 3 05/28/25 03:10 05/28/25 07:25 05/28/25 07:25 05/28/25 03:10 05/28/25 07:25 05/28/25 07:25 05/28/25 07:25 Oxygen Flow Rate (L/min) 3 Oxygen Delivery Method Nasal Cannula Weight: 168 lb 10.458 oz Body Mass Index (BMI) 28.0 Intake & Output: Intake and Output for Last 24 Hours 05/26/25 05/27/25 05/28/25 23:59 23:59 23:59 Intake Total 316.62 / 716.62 2018.39 / 2258.39 298.92 / 298.92 Output Total 2350 / 2750 800 / 800 Balance 316.62 / -383.38 -331.61 / -491.61 -501.08 / -501.08 Lab / Micro Data 05/27/25 03:51 05/27/25 03:51 Labs: Laboratory Results - last 24 hr 05/27/25 11:40: APTT 52.0 H 05/27/25 18:29: APTT 52.2 H 05/28/25 00:34: APTT 50.0 H 05/28/25 07:28: APTT 108.1 H* Micro: Microbiology 05/27/25 20:50 Urine, Clean Catch Streptococcus pneumoniae Antigen (M - Final Cardiology Labs/Tests 05/27/25 11:40: APTT 52.0 H 05/27/25 18:29: APTT 52.2 H 05/28/25 00:34: APTT 50.0 H 05/28/25 07:28: APTT 108.1 H* Rhythm: EKG: ECHO: Stress Test: Cardiac Cath: PCI: CT Surgery: Holter monitor: EPS: PPM: CXR: Chest CT Scan: Physical Exam Const alert, oriented x3 and no apparent distress General Appearance: cooperative HEENT hearing grossly normal bilaterally Head and Scalp: atraumatic Eyes EOMs intact bilaterally Neck General: normal visual inspection Chest inspection of chest normal and palpation of chest normal Resp normal respiratory effort Auscultation: clear to auscultation bilaterally Cardio regular rate, regular rhythm, S1 normal heart sound and S2 normal heart sound Jugular Venous Distention: JVD GI normal to inspection, nondistended, normoactive bowel sounds Extremity normal capillary refill and no pedal edema Peripheral Pulses: Yes pulses 2+ throughout and femoral pulses present Skin no rashes or lesions noted Neuro oriented x3 and CN's II-XII intact bilaterally Psych Appearance: grossly normal and appropriate Assessment & Plan Assessment/Plan (1) NSTEMI, initial episode of care: PLAN: Patient presents with atypical chest discomfort which has been chronic but at this time. My recommendation is for us to continue to follow her and likely undergo a repeat cardiac catheterization on Thursday and depending on the findings further recommendations will be made. (2) LV (left ventricular) mural thrombus: PLAN: She does have a previous history of a left ventricular mural thrombus. After the cardiac catheterization I will recommend that we place her on anticoagulation likely with DOAC and see how she does. (3) Ischemic cardiomyopathy: PLAN: She does have a history of ischemic cardiomyopathy and will institute guideline directed medical therapy with carvedilol, an ARB or ARNI, and an SGLT2 inhibitor. (4) Essential hypertension: PLAN: Her blood pressure appears to be under fair control the plan to be to continue this without making any major changes. (5) Hyperlipidemia: QUALIFIERS: Hyperlipidemia type: unspecified Qualified Code(s): E 78.5 - Hyperlipidemia, unspecified PLAN: She does have a history of hyperlipidemia and will continue with high intensity statin.
[2025-05-28] MEDS: Cholecalciferol (Vit D3) 125 MCG CAPSULE (5,000 UNITS) PO (09:03)
[2025-05-28] MEDS: Aspirin E.C. 81 MG Tablet PO (09:04)
[2025-05-28] MEDS: SACUBITRIL/VALSARTAN 24/26 MG TABLET 0.5 EACH PO ×2 (09:04→20:56)
[2025-05-28] MEDS: Azithromycin 500 MG in 0.9% Normal Saline (250mL Bag) 250 ML 250 MG IV (09:07)
[2025-05-28] MEDS: Nicotine (PBKC) 21 MG Patch TD (09:08)
[2025-05-28] MEDS: Nitroglycerin Oint 1 INCH PACKET TD (10:40)
--- NOTE | 2025-05-28 11:16 | PN.HOSP_ITS ---
Subjective Subjective No issues overnight, denies any chest pain currently. Breathing little bit better. She does have agitation from steroids so we will decrease dose Objective Data Objective Data Vital Signs: Vital Signs Temp Pulse Resp BP Pulse Ox O2 Del Method O2 Flow Rate 97.8 F 71 18 95/70 92 Nasal Cannula 3 05/28/25 08:58 05/28/25 08:58 05/28/25 08:58 05/28/25 08:58 05/28/25 08:58 05/28/25 09:00 05/28/25 09:00 Oxygen Flow Rate (L/min) 3 Oxygen Delivery Method Nasal Cannula Weight: 168 lb 10.458 oz Body Mass Index (BMI) 28.0 Intake & Output: Intake and Output for Last 24 Hours 05/27/25 05/28/25 05/29/25 03:59 03:59 03:59 Intake Total 716.62 / 716.62 1917.31 / 1917.31 331.03 / 331.03 Output Total 1100 / 1100 1650 / 1650 400 / 400 Balance -383.38 / -383.38 267.31 / 267.31 -68.97 / -68.97 Lab / Micro Data 05/27/25 03:51 05/27/25 03:51 Labs: Laboratory Results - last 24 hr 05/27/25 11:40: APTT 52.0 H 05/27/25 18:29: APTT 52.2 H 05/28/25 00:34: APTT 50.0 H 05/28/25 07:28: APTT 108.1 H* Micro: Microbiology 05/27/25 20:50 Urine, Clean Catch Streptococcus pneumoniae Antigen (M - Final 05/26/25 14:14 Mucosa - Nasopharyngeal Respiratory Panel (PCR) - Final 05/26/25 13:12 Nasal Secretion MRSA (PCR) - Final 05/26/25 13:12 Mucosa - Nose Coronavirus COVID-19 PCR - Final Physical Exam Narrative General: Alert, Oriented x3, Cooperative, No apparent distress HEENT: Atraumatic, PERRLA, EOMI, Normocephalic Oral: Moist Mucosa Neck: Supple Lungs: Diminished, Normal air movement, No rhonchi, No wheeze, No rales Cardiovascular: Regular rate, Regular Rhythm, Normal S1, Normal S2, No murmurs Abdomen: Soft, Non Tender, Non-Distended, No Hepato-splenomegaly Extremities: No edema, Capillary Refill Less than 3 Seconds Skin: No rashes, No breakdown Musculoskeletal: No Tenderness to Palpation of Joints or Extremities Neurological: No focal neurological deficits, Motor Exam 5/5 strength throughout, Sensory exam intact to light touch and pain Psych/Mental Status: Normal Affect, Appropriate Assessment & Plan Assessment/Plan (1) NSTEMI, initial episode of care: PLAN: Plan 1. Atypical chest pain possible non-STEMI with contribution from panic/anxiety and COPD exacerbation: Patient is being admitted to PCU on telemetry. Started on baby aspirin, IV morphine and IV heparin drip. Home medication carvedilol, Plavix and atorvastatin regimen. Nitroglycerin ointment ordered. Twelve-lead EKG shows NSR 72 bpm, QTc 424 ms. QRS 128 ms. Troponins are 18, 102 and 598. proBNP about 3000. CELESTE risk score 5/7 with 26.6% risk of mortality from ID/recurrent ischemia event in next 2 weeks. Commercial Airline Pilot consulted. Patient has significant contusion for anxiety and panic therefore IV Ativan 1 dose 0.5 mg ordered. Patient on Ativan 1 mg 3 times daily at home. 05/27: Seen by fishing tool technician oil well. Atypical chest discomfort which may be chronic. Commercial Airline Pilot recommended cardiac cath on Thursday. Patient has previous history of LV mural thrombus and echo corroborates that. On IV heparin drip and recommended DOAC after cardiac cath 05/28/2025: Plan for heart cath tomorrow morning, appreciate cardiology's assistance 2. COPD exacerbation: Patient is on send she is on antibiotic but is not seen on patient's home medication. Chest x-ray initially reviewed and shows perihilar congestion/venous congestion consistent with CHF exacerbation. No specific consolidation seen. Patient is being managed on scheduled bronchodilator, IV Solu-Medrol, Mucinex, incentive spirometry and Pep. 05/27: Respiratory panel MRSA nasal screen and COVID tests are negative. Continue bronchodilator and steroid. Encouraged incentive spirometry. 05/28/2025: Decrease from 3 times daily dosing of her steroids to just daily dosing of p.o. prednisone 3. CHF exacerbation: Started on IV Lasix. Heart failure core measures including intake and output, fluid restriction less than 1500 mL, daily weight monitoring, kidney and electrolytes monitoring. Last echo in July 2022 shows EF 30% moderately dilated LV, 1+ MR. 05/27: Lipid profile shows LDL 123. HDL normal. TSH normal. Echo shows EF 25%. Continue guideline directed medical therapy with carvedilol, ARNI and SGLT inhibitor. Lisinopril discontinued 4. Peripheral arterial disease ? Patient is on antiplatelet therapy as well as statin therapy, atorvastatin continued 5. Dyslipidemia ?Patient is on statin therapy, continued at home dose 7. Hypertension ? Blood pressure elevated, home medications continued with dose adjustment as needed 8. Depression with anxiety - Patient on sertraline and lorazepam 1 mg p.o. 3 times daily as needed. Continued 9. Chronic pain syndrome ? Patient follows Dr. Forrest. On [place] at home. Patient's son stated that she is on sustained-release oxycodone or morphine but not found on the patient's home med list. 10. Hyperglycemia Glucose elevated 122. Probably due to recurrent Solu-Medrol/steroid DVT: Heparin drip Charges/Coding Visit Charges Inpatient E&M: 03793 Subs Hosp L2
[2025-05-28 15:53] LABS: Partial Thromboplast Time 46.3 Seconds (24.1-36.2)
--- NOTE | 2025-05-28 20:53 | NURSING ---
Nitro paste removed due to low BP
[2025-05-28] MEDS: MELATONIN 3 MG TABLET PO (20:56)
[2025-05-28] MEDS: HEPARIN/D5w 25,000 UNITS 25,000 UNITS/250 ML IV.SOLN. 9.1 UNITS CONT INF (21:03)
--- NOTE | 2025-05-28 21:03 | CPS ---
Patient does not wear home PAP HS
[2025-05-28 23:02] LABS: Hematocrit 38.2 % (37-47); Hemoglobin 12.9 g/dL (12.0-15.0); Mean Corp Hgb Conc 33.8 g/dL (32-36); Mean Corpuscular Volume 95.7 fL (81-99); Mean Platelet Vol. 9.8 fl (6.2-12.0); Platelet Count 202 K/mm3 (150-450); RBC Distribution Width CV 14.0 % (11.6-14.6); RBC Distribution Width SD 48.9 fl (35.1-43.9); Red Blood Count 3.99 M/mm3 (4.2-5.4); White Blood Count 10.7 K/mm3 (4.4-11.0)
[2025-05-28 23:16] LABS: Partial Thromboplast Time 57.2 Seconds (24.1-36.2)
[2025-05-29] VITALS (16 sets, daily range): BP systolic 77–132; BP diastolic 35–88; PULSE 62–80; RESP 16–18; TEMP 36.5–36.9; O2SAT 90–99; BMI 27.1
--- NOTE | 2025-05-29 05:00 | EKG12_ITS ---
Test Reason : CP Blood Pressure : */* mmHG Vent. Rate : 79 BPM Atrial Rate : 79 BPM P-R Int : 130 ms QRS Dur : 100 ms QT Int : 388 ms P-R-T Axes : 42 13 110 degrees QTcB Int : 444 ms Normal sinus rhythm Cannot rule out Inferior infarct , age undetermined Anteroseptal infarct , age undetermined T wave abnormality, consider lateral ischemia Abnormal ECG When compared with ECG of 26-May-2025 10:48, MANUAL COMPARISON REQUIRED DATA IS UNCONFIRMED Confirmed by CECI MARTINEZ, GEO ([id number]), department editor SANTIAGO SMALL ([id number]) on 05/29/2025 9:01:37 AM Referred By: Confirmed By: GEO ORNELAS MD
[2025-05-29] MEDS: 0.9% Saline Lock 10 ML Syringe IV (05:08)
[2025-05-29] MEDS: SACUBITRIL/VALSARTAN 24/26 MG TABLET 0.5 EACH PO (05:09)
[2025-05-29] MEDS: Aspirin E.C. 81 MG Tablet PO (05:09)
--- NOTE | 2025-05-29 05:35 | EKG12_ITS ---
Test Reason : PRE OP Blood Pressure : */* mmHG Vent. Rate : 69 BPM Atrial Rate : 65 BPM P-R Int : 128 ms QRS Dur : 100 ms QT Int : 392 ms P-R-T Axes : 55 32 140 degrees QTcB Int : 420 ms Normal sinus rhythm Cannot rule out Inferior infarct , age undetermined Anterolateral infarct , age undetermined Abnormal ECG When compared with ECG of 26-May-2025 11:55, MANUAL COMPARISON REQUIRED DATA IS UNCONFIRMED Confirmed by CECI MARTINEZ, GEO ([id number]), order editor SANTIAGO SMALL ([id number]) on 05/29/2025 10:41:08 AM Referred By: Confirmed By: GEO ORNELAS MD
[2025-05-29 05:44] LABS: Hematocrit 39.4 % (37-47); Hemoglobin 13.0 g/dL (12.0-15.0); Immature Granulocytes Count 0.060 X10^3/uL (0.0-0.0); Mean Corp Hgb Conc 33.0 g/dL (32-36); Mean Corpuscular Volume 96.3 fL (81-99); Mean Platelet Vol. 9.7 fl (6.2-12.0); NRBC Flagged by Analyzer 0 % (0-5); Platelet Count 201 K/mm3 (150-450); RBC Distribution Width CV 14.1 % (11.6-14.6); RBC Distribution Width SD 48.9 fl (35.1-43.9); Red Blood Count 4.09 M/mm3 (4.2-5.4); White Blood Count 11.0 K/mm3 (4.4-11.0)
[2025-05-29 06:11] LABS: Anion Gap 10 (5-15); BUN 28 mg/dL (4-19); BUN/Creat Ratio 36.7 RATIO (10-20); Calcium,Total 9.2 mg/dL (7.6-11.0); Carbon Dioxide 31.7 mmol/L (21.0-32.0); Chloride 98 mmol/L (98-108); Estimated Creatinine Clearance 67.83 ml/min (50-250); Glucose 103 mg/dL (70-99); Magnesium 2.0 mg/dL (1.5-2.2); Potassium 3.3 mmol/L (3.3-5.1)
--- NOTE | 2025-05-29 08:01 | NURSING ---
Report called to recyclable materials sorter
--- NOTE | 2025-05-29 08:50 | PCM.PN.CARD ---
Subjective Subjective Patient seen and evaluated. Underwent cardiac catheterization today Objective Data Vital Signs: Vital Signs Temp Pulse Resp BP Pulse Ox O2 Del Method O2 Flow Rate 97.8 F 62 18 132/88 H 99 Nasal Cannula 3 05/29/25 05:10 05/29/25 06:55 05/29/25 06:55 05/29/25 05:10 05/29/25 05:10 05/29/25 07:45 05/29/25 07:45 Oxygen Flow Rate (L/min) 3 Oxygen Delivery Method Nasal Cannula Weight: 163 lb 5.8 oz Body Mass Index (BMI) 27.1 Intake & Output: Intake and Output for Last 24 Hours 05/27/25 05/28/25 05/29/25 23:59 23:59 23:59 Intake Total 2018.39 / 2258.39 745.04 / 745.04 42.47 / 42.47 Output Total 2350 / 2750 1200 / 1200 300 / 300 Balance -331.61 / -491.61 -454.96 / -454.96 -257.53 / -257.53 Lab / Micro Data 05/29/25 05:00 05/29/25 05:00 Labs: Laboratory Results - last 24 hr 05/28/25 15:30: APTT 46.3 H 05/28/25 22:50: WBC 10.7, RBC 3.99 L, Hgb 12.9, Hct 38.2, MCV 95.7, MCH 32.3 H, MCHC 33.8, RDW Std Deviation 48.9 H, RDW Coeff of Sariah 14.0, Plt Count 202, MPV 9.8, APTT 57.2 H 05/29/25 05:00: WBC 11.0, RBC 4.09 L, Hgb 13.0, Hct 39.4, MCV 96.3, MCH 31.8, MCHC 33.0, RDW Std Deviation 48.9 H, RDW Coeff of Sariah 14.1, Plt Count 201, MPV 9.7, Immature Gran % (Auto) 0.500, Neut % (Auto) 58.8, Lymph % (Auto) 30.8, [place] % (Auto) 9.3, Eos % (Auto) 0.5, Baso % (Auto) 0.1, Absolute Neuts (auto) 6.5, Absolute Lymphs (auto) 3.39, Nucleated RBC % 0, Sodium 139, Potassium 3.3, Chloride 98, Carbon Dioxide 31.7, Anion Gap 10, BUN 28 H, Creatinine 0.76, Estim Creat Clear Calc 67.83, Est GFR (MDRD) Non-Af 85, BUN/Creatinine Ratio 36.7 H, Glucose 103 H, Calcium 9.2, Magnesium 2.0 Micro: Microbiology 05/26/25 13:11 Blood Culture (Wb) - Right Hand Blood Culture - Preliminary No growth in 48 hours. 05/26/25 13:02 Blood Culture (Wb) - Right Wrist Blood Culture - Preliminary No growth in 48 hours. Cardiology Labs/Tests 05/28/25 15:30: APTT 46.3 H 05/28/25 22:50: WBC 10.7, RBC 3.99 L, Hgb 12.9, Hct 38.2, MCV 95.7, MCH 32.3 H, MCHC 33.8, Plt Count 202, MPV 9.8, APTT 57.2 H 05/29/25 05:00: WBC 11.0, RBC 4.09 L, Hgb 13.0, Hct 39.4, MCV 96.3, MCH 31.8, MCHC 33.0, Plt Count 201, MPV 9.7, Immature Gran % (Auto) 0.500, Neut % (Auto) 58.8, Lymph % (Auto) 30.8, [place] % (Auto) 9.3, Eos % (Auto) 0.5, Baso % (Auto) 0.1, Absolute Neuts (auto) 6.5, Nucleated RBC % 0, Sodium 139, Potassium 3.3, Chloride 98, Carbon Dioxide 31.7, Anion Gap 10, BUN 28 H, Creatinine 0.76, Est GFR (MDRD) Non-Af 85, BUN/Creatinine Ratio 36.7 H, Glucose 103 H, Calcium 9.2, Magnesium 2.0 Rhythm: EKG: ECHO: Stress Test: Cardiac Cath: PCI: CT Surgery: Holter monitor: EPS: PPM: CXR: Chest CT Scan: Physical Exam Const alert, oriented x3 and no apparent distress General Appearance: cooperative HEENT hearing grossly normal bilaterally Head and Scalp: atraumatic Eyes EOMs intact bilaterally Neck General: normal visual inspection Chest inspection of chest normal and palpation of chest normal Resp normal respiratory effort Auscultation: clear to auscultation bilaterally Cardio regular rate, regular rhythm, S1 normal heart sound and S2 normal heart sound Jugular Venous Distention: JVD GI normal to inspection, nondistended, normoactive bowel sounds Extremity normal capillary refill and no pedal edema Peripheral Pulses: Yes pulses 2+ throughout and femoral pulses present Skin no rashes or lesions noted Neuro oriented x3 and CN's II-XII intact bilaterally Psych Appearance: grossly normal and appropriate Assessment & Plan Assessment/Plan (1) NSTEMI, initial episode of care: PLAN: Patient presents with atypical chest discomfort which has been chronic Cardiac catheterization today demonstrated mild to moderate disease in the right coronary artery, mild to moderate left anterior descending artery disease and moderate disease noted in the distal left anterior descending artery in an area with an akinetic zone. Recommend aggressive medical therapy. (2) LV (left ventricular) mural thrombus: PLAN: She does have a previous history of a left ventricular mural thrombus. Will recommend resuming Xarelto 20 mg a day starting this evening. Patient can be discharged home follow-up outpatient follow-up (3) Ischemic cardiomyopathy: PLAN: She does have a history of ischemic cardiomyopathy and will institute guideline directed medical therapy with carvedilol, an ARB or ARNI, and an SGLT2 inhibitor. (4) Essential hypertension: PLAN: Her blood pressure appears to be under fair control the plan to be to continue this without making any major changes. (5) Hyperlipidemia: QUALIFIERS: Hyperlipidemia type: unspecified Qualified Code(s): E78.5 - Hyperlipidemia, unspecified PLAN: She does have a history of hyperlipidemia and will continue with high intensity statin.
--- NOTE | 2025-05-29 09:02 | CL.D_ITS ---
Patient Name: ECHO KERNS Study Date: 05/29/2025 Performing: Rey Curtis MD Ht: 65 inches 165.1 cm : 1955 Wt: 163.36 lbs 74.1 kg Age: 69 Gender: female BSA: 1.82 PROCEDURE(S) PERFORMED [id number])[facility] CLINICAL PROFILE AND INDICATIONS Indications: Worsening Angina Heart Failure: NYHA Class: 3, Newly Diagnosed: Yes, Heart Failure Type: Systolic CONCLUSIONS Moderately severe distal left anterior descending artery stenosis, mild circumflex artery and right coronary artery stenosis, reduced left ventricular systolic function with apical thrombus present. RECOMMENDATIONS Medical therapy DESCRIPTION OF PROCEDURE The patient arrived to the procedure lab. The risks and benefits of the procedure as well as a full description of our services here and current unavailability of surgical backup were fully explained to the patient and/or their significant other prior to the catheterization. The Timeout was completed, verifying the correct patient and procedure. The patient's procedural site was prepped and draped in the usual fashion. Local anesthetic was given subcutaneously to right radial region with Lidocaine 2%. Using a modified Seldinger technique, arterial access was obtained via the right radial artery, a 6Fr sheath was inserted. Left Coronary Artery selective angiography was performed in multiple views using a 5 Fr. 4.0 [place] catheter. Right Coronary Artery selective angiography was then performed in multiple views using a 5 Fr. 4.0 [place] catheter.The arterial sheath was pulled and a TR Band was applied for hemostasis CORONARY ANGIOGRAPHY DOMINANCE: Right Dominant LEFT HEART ASSESSMENT Left Ventricular Ejection Fraction: by Echo 25 % Anterior Akinesis Depressed Left Ventricular systolic function LEFT MAIN: Mild calcification, Mild luminal irregularities LEFT ANTERIOR DESCENDING ARTERY: Mild luminal irregularities less than 30% DISTAL LAD: 70 % Stenosis CIRCUMFLEX ARTERY: Mild luminal irregularities less than 30% OM 1: Proximal - Mild luminal irregularities RIGHT CORONARY ARTERY: Mild luminal irregularities less than 30% COMPLICATIONS No Complications PROCEDURE MEDICATIONS Fentanyl 25 mcg IV Versed 0.5 mg IV Fentanyl 25 mcg IV Versed 0.5 mg IV Oxygen: 3 L/min via nasal cannula Benadryl 50 mg IV @ 05/29/2025 08:07:43 Heparin given IA 05/29/2025 08:38:58 Potassium Chloride 40 mEq PO 05/29/2025 08:07:28 Solu-medrol 125 mg IV 05/29/2025 08:07:36 SUMMARY OF HEMODYNAMIC DATA Time AIR REST ECG 08:06:54 AO 72/46 (57) SA 08:43:06 AO 80/55 (67) 08:45:17 AIR REST 09:00:18 Signed By Rey Curtis MD On 05/29/2025 09:01:07 Rey Curtis MD
[2025-05-29] MEDS: Nicotine (PBKC) 21 MG Patch TD (10:18)
[2025-05-29] MEDS: Senna/Docusate Sodium 1 Tablet 2 TABLET PO (10:19)
[2025-05-29] MEDS: Cholecalciferol (Vit D3) 125 MCG CAPSULE (5,000 UNITS) PO (10:19)
--- NOTE | 2025-05-29 10:49 | DCINST_ITS ---
Discharge Instructions DC O2, CPAP, BIPAP needs Home O2 Discharge instructions: No Dressing / Incision Discharge Activity: Return to Normal Activity Dressing / Incision Call your doctor if you observe: Fever of 101 or Higher, Shortness of breath, Dizziness, Fainting spells, Swelling in the ankles, Chest pain and Increased palpitations (irregular heartbeat) Follow Up Care Test Results: Test results from this visit will be discussed in further detail at your follow- up appointment, if applicable. Discharge Plan Admission Admit Date/Time: 05/26/25 09:32 Attending Provider: Jorgito Jackson Primary Care Provider: Sandy Barbosa Consulting Providers: Rey Curtis; Regan Russo Discharge Orders/Prescriptions Prescriptions: New Xarelto 20 mg Tablet 20 mg PO DINNER 30 Days Qty: 30 0RF Jardiance 10 mg Tablet 10 mg PO DAILY 30 Days Qty: 30 0RF sacubitril-valsartan 24-26 mg Tablet 0.5 tab PO BID 30 Days Qty: 30 0RF Continued Spiriva Respimat 2.5 mcg/actuation mist 2 puff inhalation DAILY Qty: 4 11RF (DME) Aerochamber MV Spacer See Rx Instructions .ROUTE .MEDSUPPLY Qty: 1 0RF Rx Instructions: As directed lorazepam [Ativan] 1 mg tablet 1 mg PO TID PRN (Reason: anxiety) furosemide 40 mg tablet 40 mg PO QDAY Qty: 90 3RF carvedilol 25 mg tablet 25 mg PO BID Qty: 120 3RF Rx Instructions: must administer with a meal/food omeprazole 40 mg capsule,delayed release(DR/EC) 40 mg PO QDAY spironolactone 25 mg tablet 25 mg PO QDAY sertraline 50 mg tablet 50 mg PO QDAY potassium chloride 20 mEq tablet extended release 20 meq PO QDAY melatonin 3 mg capsule 3 mg PO QHS gabapentin 400 mg capsule 400 mg PO Q6H nitroglycerin 0.4 mg tablet, sublingual 0.4 mg buccal Q5M PRN (Reason: chest pain) sucralfate 1 gram tablet 1 g PO Q8H promethazine 25 mg tablet 25 mg PO PRN PRN (Reason: nausea and vomiting) hydrocodone-acetaminophen 5-325 mg tablet 1 tab PO Q4H Airsupra 90-80 mcg/actuation HFA aerosol inhaler 1 - 2 inh INHALATION BID PRN (Reason: shortness of breath) Patient Comments: [NO ORIGINAL SIG] atorvastatin 40 mg tablet 40 mg PO QHS bisacodyl 5 mg tablet,delayed release (DR/EC) 5 mg PO DAILY PRN (Reason: constipation) Patient Comments: [NO ORIGINAL SIG] polyethylene glycol 3350 17 gram/dose powder 17 g PO BID cholecalciferol (vitamin D3) 125 mcg (5,000 unit) capsule 125 mcg PO DAILY budesonide-formoterol [Symbicort] 160-4.5 mcg/actuation HFA aerosol inhaler 1 puff inhalation BID Qty: 10.2 0RF Discontinued clopidogrel 75 mg tablet 75 mg PO QDAY lisinopril 5 mg tablet 5 mg PO DAILY Referrals / Follow Up: Rey Curtis MD [Med Staff - Active Staff, Cardiology] - Within 1 Month Sandy Barbosa MD [Primary Care Provider, Internal Medicine] - Within 1 Week Disposition Disposition (needs filled in before D/C Order can be placed): Home, Self Care
--- NOTE | 2025-05-29 12:06 | CASEMGMT ---
Addendum entered by Nikia Kelly 05/29/25 15:05: Social Work RN called report to [facility], she let [facility] know that pt will be leaving here shortly to return to [facility]. Medications have no copays. STEVE Beasley Addendum entered by Nikia Kelly 05/29/25 12:30: Social Work Pt's field case manager Ursula Winter([phone]) had called earlier, SW called and left a message letting her know pt is returning to [facility] today. AC faxed discharge instructions to Ursula as well. STEVE Beasley Original Note: Social Work Pt is discharged back to [facility] today. SW spoke w/[facility], they are ready for pt whenever she is ready to return. SW spoke w/pt, agreeable to return today. SW asked about her home O2. She states she wears 3-4L at night only. CM verified her O2 w/[employer], pt's order is actually for 2LPM continuous. As per pt, her granddaughter will give her a ride home. Pt's son is here now and is able to go get an oxygen tank for pt. Pt declined wanting the oxygen tank for the ride back, and in fact said her granddaughter will take her back and pt plans to smoke a cigarette on the way back. Pt did want to complete LW/POA documents. Pt completed documents w/SW, named her son as POA and daughter as alternate. AC gave pt the originals and copies, and a copy was placed on the chart. AC also faxed the POA/LW documents to [facility] along w/discharge instructions. AC called pt's pharmacy, [facility], to check on cost of meds, they are closed for lunch. AC will call back when they reopen at 1pm. Once AC knows approximate time family will mixing picker tender pt, will let [facility] know. STEVE Beasley
--- NOTE | 2025-05-29 12:20 | PHA.DC_ITS ---
Pharmacy [facility] Counseling Pharmacy Service has performed discharge medication reconciliation and counseling for this patient. 1. EMPAGLIFLOZIN 10MG PO DAILY 2. SACUBITRIL/VALSARTAN 24/26MG 0.5 TABLET PO BID 3. RIVAROXABAN 20MG PO DINNER 4. STOP LISINOPRIL AND CLOPIDOGREL The patient's discharge medication list was reviewed for discrepancies and discrepancies were resolved. The patient was counseled on the following discharge medications and changes in medications for homegoing were reviewed. The Reason for Use, instructions for use, and potential side effects were reviewed for all new medications. The patient's questions regarding all of their medications were answered. The patient was able to verbally demonstrate an understanding of their discharge medications. Medications at Discharge Home Medications inhalational spacing device (Aerochamber MV spacer) #1 ea 02/17/23 tiotropium bromide 2.5 mcg/actuation mist for inhalation (Spiriva Respimat) 2 puff inhalation DAILY #4 grams 02/17/23 lorazepam 1 mg tablet (Ativan) 1 mg PO TID PRN anxiety 07/16/23 gabapentin 400 mg capsule 400 mg PO Q6H nerve pain 07/29/23 nitroglycerin 0.4 mg sublingual tablet 0.4 mg buccal Q5M PRN chest pain 07/29/23 sucralfate 1 gram tablet 1 g PO Q8H 07/29/23 melatonin 3 mg capsule 3 mg PO QHS sleep 09/05/23 albuterol 90 mcg-budesonide 80 mcg/actuation HFA aerosol inhaler (Airsupra) 1 - 2 inh inhalation BID PRN shortness of breath 09/28/24 atorvastatin 40 mg tablet 40 mg PO QHS cholesterol 09/28/24 bisacodyl 5 mg tablet,delayed release 5 mg PO DAILY PRN constipation 09/28/24 cholecalciferol (vitamin D3) 125 mcg (5,000 unit) capsule 125 mcg PO DAILY supplement 09/28/24 hydrocodone-acetaminophen 5-325mg 5mg-325mg 1 tab PO Q4H pain 09/28/24 polyethylene glycol 3350 17 gram/dose oral powder 17 g PO BID constipation 09/28/24 promethazine 25 mg tablet 25 mg PO PRN PRN nausea and vomiting 09/28/24 budesonide-formoterol HFA 160 mcg-4.5 mcg/actuation aerosol inhaler (Symbicort) 1 puff inhalation BID COPD #10.2 grams 09/30/24 carvedilol 25 mg tablet 25 mg PO BID heart #120 tabs 10/04/24 furosemide 40 mg tablet 40 mg PO QDAY diuretic #90 tabs 10/04/24 omeprazole 40 mg capsule,delayed release 40 mg PO QDAY GERD 01/13/25 potassium chloride 20 mEq tablet,extended release 20 meq PO QDAY supplement 01/13/25 sertraline 50 mg tablet 50 mg PO QDAY depression 01/13/25 spironolactone 25 mg tablet 25 mg PO QDAY blood pressure 01/13/25 empagliflozin 10 mg tablet (Jardiance) 10 mg PO DAILY 30 days #30 tabs 05/29/25 rivaroxaban 20 mg tablet (Xarelto) 20 mg PO DINNER 30 days #30 tabs 05/29/25 sacubitril 24 mg-valsartan 26 mg tablet 0.5 tab PO BID 30 days #30 tabs 05/29/25
--- NOTE | 2025-05-29 13:05 | CASEMGMT ---
WENDY CANCINO called [facility]'s pharmacy to inquire about copays for Jardiance and Xarelto, no copay for medications.
--- NOTE | 2025-05-29 14:32 | NURSING ---
report called to [facility] to MARGO bonilla
--- NOTE | 2025-05-29 15:26 | PCM.DC.SUM ---
Providers Date of Admission: 05/26/25 Primary Care Physician: Dr. Sandy Barbosa MD Consultations 05/26/25 12:06 Consult: Cardiology Urgent Consulting Provider: Rey Curtis Reason for Consult: Chest Pain/nstemi EMERGENT Consult: No MD Notified: Yes Date Notified: 05/26/25 Time Notified: 09:34 Method of Notification: ED Physician Initiated Reason For Visit: NSTEMI Diagnosis Discharge Diagnosis (1) NSTEMI, initial episode of care: Status: Acute Code(s): I21.4 - Non-ST elevation (NSTEMI) myocardial infarction (2) LV (left ventricular) mural thrombus: Status: Acute Code(s): I51.3 - Intracardiac thrombosis, not elsewhere classified (3) Ischemic cardiomyopathy: Status: Acute Code(s): I25.5 - Ischemic cardiomyopathy (4) Essential hypertension: Status: Chronic Code(s): I10 - Essential (primary) hypertension (5) Hyperlipidemia: Status: Chronic Code(s): E78.5 - Hyperlipidemia, unspecified Qualifiers: Hyperlipidemia type: unspecified Qualified Code(s): E78.5 - Hyperlipidemia, unspecified Medications at Discharge Home Medications inhalational spacing device (Aerochamber MV spacer) #1 ea 02/17/23 tiotropium bromide 2.5 mcg/actuation mist for inhalation (Spiriva Respimat) 2 puff inhalation DAILY breathing #4 grams 02/17/23 lorazepam 1 mg tablet (Ativan) 1 mg PO TID PRN anxiety 07/16/23 gabapentin 400 mg capsule 400 mg PO Q6H nerve pain 07/29/23 nitroglycerin 0.4 mg sublingual tablet 0.4 mg buccal Q5M PRN chest pain 07/29/23 sucralfate 1 gram tablet 1 g PO Q8H GI 07/29/23 melatonin 3 mg capsule 3 mg PO QHS sleep 09/05/23 albuterol 90 mcg-budesonide 80 mcg/actuation HFA aerosol inhaler (Airsupra) 1 - 2 inh inhalation BID PRN shortness of breath 09/28/24 atorvastatin 40 mg tablet 40 mg PO QHS cholesterol 09/28/24 bisacodyl 5 mg tablet,delayed release 5 mg PO DAILY PRN constipation 09/28/24 cholecalciferol (vitamin D3) 125 mcg (5,000 unit) capsule 125 mcg PO DAILY supplement 09/28/24 hydrocodone-acetaminophen 5-325mg 5mg-325mg 1 tab PO Q4H pain 09/28/24 polyethylene glycol 3350 17 gram/dose oral powder 17 g PO BID constipation 09/28/24 promethazine 25 mg tablet 25 mg PO PRN PRN nausea and vomiting 09/28/24 budesonide-formoterol HFA 160 mcg-4.5 mcg/actuation aerosol inhaler (Symbicort) 1 puff inhalation BID COPD #10.2 grams 09/30/24 carvedilol 25 mg tablet 25 mg PO BID heart #120 tabs 10/04/24 furosemide 40 mg tablet 40 mg PO QDAY diuretic #90 tabs 10/04/24 omeprazole 40 mg capsule,delayed release 40 mg PO QDAY GERD 01/13/25 potassium chloride 20 mEq tablet,extended release 20 meq PO QDAY supplement 01/13/25 sertraline 50 mg tablet 50 mg PO QDAY depression 01/13/25 spironolactone 25 mg tablet 25 mg PO QDAY blood pressure 01/13/25 empagliflozin 10 mg tablet (Jardiance) 10 mg PO DAILY 30 days #30 tabs 05/29/25 rivaroxaban 20 mg tablet (Xarelto) 20 mg PO DINNER 30 days #30 tabs 05/29/25 sacubitril 24 mg-valsartan 26 mg tablet 0.5 tab PO BID 30 days #30 tabs 05/29/25 Hospital Course Operations None Procedures 2-D Echocardiogram and Cardiac catheterization Summary of Care Provided Minutes Spent on Discharge: 33 Hospital Course: Per HPI: Hospital Course: 1. Atypical chest pain possible non-STEMI with contribution from panic/anxiety and COPD exacerbation: Patient is being admitted to PCU on telemetry. Started on baby aspirin, IV morphine and IV heparin drip. Home medication carvedilol, Plavix and atorvastatin regimen. Nitroglycerin ointment ordered. Twelve-lead EKG shows NSR 72 bpm, QTc 424 ms. QRS 128 ms. Troponins are 18, 102 and 598. proBNP about 3000. CELESTE risk score 5/7 with 26.6% risk of mortality from RI/recurrent ischemia event in next 2 weeks. [employer] consulted. Patient has significant contusion for anxiety and panic therefore IV Ativan 1 dose 0.5 mg ordered. Patient on Ativan 1 mg 3 times daily at home. 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 Atypical chest discomfort which may be chronic. [employer] recommended cardiac cath on Thursday. Patient has previous history of LV mural thrombus and echo corroborates that. On IV heparin drip and recommended DOAC after cardiac cath 05/28/2025: Plan for heart cath tomorrow morning, appreciate cardiology's assistance 05/29/2025: Cardiac catheterization did not require intervention and the recommendation was for medical management, she had mild to moderate disease in the right coronary artery with mild to moderate left anterior descending artery disease with moderate disease noted in the distal LAD. She will be on Xarelto for history of left mural thrombus therefore we will discontinue Plavix given the increased risk in the setting of anticoagulation and antiplatelets in new literature. Will start her on goal-directed therapy with Jardiance as well as Entresto, will discontinue her home ARB. Will continue with her home Coreg as well as her diuretics with Lasix and Aldactone. I discussed with her the plan for discharge today and she expressed understanding of the risks and benefits of going home and would like to go home today. 2. COPD exacerbation: Patient is on send she is on antibiotic but is not seen on patient's home medication. Chest x-ray initially reviewed and shows perihilar congestion/venous congestion consistent with CHF exacerbation. No specific consolidation seen. Patient is being managed on scheduled bronchodilator, IV Solu-Medrol, Mucinex, incentive spirometry and Pep. 05/27: Respiratory panel MRSA nasal screen and COVID tests are negative. Continue bronchodilator and steroid. Encouraged incentive spirometry. 05/28/2025: Decrease from 3 times daily dosing of her steroids to just daily dosing of p.o. prednisone 05/29/2025: She would like to not be on steroids at all therefore we will discontinue on discharge as she is down to her baseline oxygen requirement 3. Acute on chronic systolic CHF exacerbation: Started on IV Lasix. Heart failure core measures including intake and output, fluid restriction less than 1500 mL, daily weight monitoring, kidney and electrolytes monitoring. Last echo in July 2022 shows EF 30% moderately dilated LV, 1+ MR. 05/27: Lipid profile shows LDL 123. HDL normal. TSH normal. Echo shows EF 25%. Continue guideline directed medical therapy with carvedilol, ARNI and SGLT inhibitor. Lisinopril discontinued 4. Peripheral arterial disease ? Patient is on antiplatelet therapy as well as statin therapy, atorvastatin continued 5. Dyslipidemia ?Patient is on statin therapy, continued at home dose 7. Hypertension ? Blood pressure elevated, home medications continued with dose adjustment as needed 8. Depression with anxiety - Patient on sertraline and lorazepam 1 mg p.o. 3 times daily as needed. Continued 9. Chronic pain syndrome ? Patient follows Dr. Forrest. On [place] at home. Patient's son stated that she is on sustained-release oxycodone or morphine but not found on the patient's home med list. 10. Hyperglycemia Glucose elevated 122. Probably due to recurrent Solu-Medrol/steroid Physical Exam Narrative General: Alert, Oriented x3, Cooperative, No apparent distress HEENT: Atraumatic, PERRLA, EOMI, Normocephalic Oral: Moist Mucosa Neck: Supple Lungs: Diminished, Normal air movement, No rhonchi, No wheeze, No rales Cardiovascular: Regular rate, Regular Rhythm, Normal S1, Normal S2, No murmurs Abdomen: Soft, Non Tender, Non-Distended, No Hepato-splenomegaly Extremities: No edema, Capillary Refill Less than 3 Seconds Skin: No rashes, No breakdown Musculoskeletal: No Tenderness to Palpation of Joints or Extremities Neurological: No focal neurological deficits, Motor Exam 5/5 strength throughout, Sensory exam intact to light touch and pain Psych/Mental Status: Normal Affect, Appropriate Weight / BMI Weight Weight: 163 lb 5.8 oz Body Mass Index (BMI) 27.1 ABG / Lab / Microbiology Data 05/29/25 05:00 05/29/25 05:00 Laboratory: Laboratory Results - last 24 hr 05/28/25 15:30: APTT 46.3 H 05/28/25 22:50: WBC 10.7, RBC 3.99 L, Hgb 12.9, Hct 38.2, MCV 95.7, MCH 32.3 H, MCHC 33.8, RDW Std Deviation 48.9 H, RDW Coeff of Sariah 14.0, Plt Count 202, MPV 9.8, APTT 57.2 H 05/29/25 05:00: WBC 11.0, RBC 4.09 L, Hgb 13.0, Hct 39.4, MCV 96.3, MCH 31.8, MCHC 33.0, RDW Std Deviation 48.9 H, RDW Coeff of Sariah 14.1, Plt Count 201, MPV 9.7, Immature Gran % (Auto) 0.500, Neut % (Auto) 58.8, Lymph % (Auto) 30.8, [place] % (Auto) 9.3, Eos % (Auto) 0.5, Baso % (Auto) 0.1, Absolute Neuts (auto) 6.5, Absolute Lymphs (auto) 3.39, Nucleated RBC % 0, Sodium 139, Potassium 3.3, Chloride 98, Carbon Dioxide 31.7, Anion Gap 10, BUN 28 H, Creatinine 0.76, Estim Creat Clear Calc 67.83, Est GFR (MDRD) Non-Af 85, BUN/Creatinine Ratio 36.7 H, Glucose 103 H, Calcium 9.2, Magnesium 2.0 Microbiology: Microbiology 05/26/25 13:11 Blood Culture (Wb) - Right Hand Blood Culture - Preliminary No growth in 48 hours. 05/26/25 13:02 Blood Culture (Wb) - Right Wrist Blood Culture - Preliminary No growth in 48 hours. 05/27/25 20:50 Urine, Clean Catch Streptococcus pneumoniae Antigen (M - Final 05/26/25 14:14 Mucosa - Nasopharyngeal Respiratory Panel (PCR) - Final 05/26/25 13:12 Nasal Secretion MRSA (PCR) - Final 05/26/25 13:12 Mucosa - Nose Coronavirus COVID-19 PCR - Final D/C Instructions Call your doctor if you observe: Fever of 101 or Higher, Shortness of breath, Dizziness, Fainting spells, Swelling in the ankles, Chest pain and Increased palpitations (irregular heartbeat) DC O2, CPAP, BIPAP Needs Home O2 Discharge instructions: No Meaningful Use Info Meaningful Use Meaningful Use Diagnoses (Choose all that apply): None applicable Discharge Plan Admission Admit Date/Time: 05/26/25 09:32 Attending Provider: Jorgito Jackson Primary Care Provider: Sandy Barbosa Consulting Providers: Rey Curtis; Regan Russo Discharge Orders/Prescriptions Prescriptions: New Xarelto 20 mg Tablet 20 mg PO DINNER 30 Days Qty: 30 0RF Jardiance 10 mg Tablet 10 mg PO DAILY 30 Days Qty: 30 0RF sacubitril-valsartan 24-26 mg Tablet 0.5 tab PO BID 30 Days Qty: 30 0RF Continued Spiriva Respimat 2.5 mcg/actuation mist 2 puff inhalation DAILY Qty: 4 11RF (DME) Aerochamber MV Spacer See Rx Instructions .ROUTE .MEDSUPPLY Qty: 1 0RF Rx Instructions: As directed lorazepam [Ativan] 1 mg tablet 1 mg PO TID PRN (Reason: anxiety) furosemide 40 mg tablet 40 mg PO QDAY Qty: 90 3RF carvedilol 25 mg tablet 25 mg PO BID Qty: 120 3RF Rx Instructions: must administer with a meal/food omeprazole 40 mg capsule,delayed release(DR/EC) 40 mg PO QDAY spironolactone 25 mg tablet 25 mg PO QDAY sertraline 50 mg tablet 50 mg PO QDAY potassium chloride 20 mEq tablet extended release 20 meq PO QDAY melatonin 3 mg capsule 3 mg PO QHS gabapentin 400 mg capsule 400 mg PO Q6H nitroglycerin 0.4 mg tablet, sublingual 0.4 mg buccal Q5M PRN (Reason: chest pain) sucralfate 1 gram tablet 1 g PO Q8H promethazine 25 mg tablet 25 mg PO PRN PRN (Reason: nausea and vomiting) hydrocodone-acetaminophen 5-325 mg tablet 1 tab PO Q4H Airsupra 90-80 mcg/actuation HFA aerosol inhaler 1 - 2 inh INHALATION BID PRN (Reason: shortness of breath) Patient Comments: [NO ORIGINAL SIG] atorvastatin 40 mg tablet 40 mg PO QHS bisacodyl 5 mg tablet,delayed release (DR/EC) 5 mg PO DAILY PRN (Reason: constipation) Patient Comments: [NO ORIGINAL SIG] polyethylene glycol 3350 17 gram/dose powder 17 g PO BID cholecalciferol (vitamin D3) 125 mcg (5,000 unit) capsule 125 mcg PO DAILY budesonide-formoterol [Symbicort] 160-4.5 mcg/actuation HFA aerosol inhaler 1 puff inhalation BID Qty: 10.2 0RF Discontinued clopidogrel 75 mg tablet 75 mg PO QDAY lisinopril 5 mg tablet 5 mg PO DAILY Referrals / Follow Up: Rey Curtis MD [Med Staff - Active Staff, Cardiology] - Within 1 Month Sandy Barbosa MD [Primary Care Provider, Internal Medicine] - Within 1 Week Referral Note: Appointment with Sharon Chappell N.P. Disposition Disposition (needs filled in before D/C Order can be placed): Home, Self Care Charges/Coding Visit Charges Inpatient E&M: 66387 Disch Hosp >30min
== END 2025-05-29 15:22 | disposition home or self-care (01) | DRG 280 ==
LOC: ED 09:34 → PCU 10:47
PROVIDERS: Emergency Medicine; Family Medicine; Admitting Provider Internal Medicine; Emergency Provider Emergency Medicine; PCP Internal Medicine; Visit Provider Family Medicine
DX: I21.4 Non-ST elevation (NSTEMI) myocardial infarction (principal); I50.23 Acute on chronic systolic (congestive) heart failure; J44.1 Chronic obstructive pulmonary disease with (acute) exacerbation; I51.3 Intracardiac thrombosis, not elsewhere classified; I11.0 Hypertensive heart disease with heart failure; I73.9 Peripheral vascular disease, unspecified; F32.A Depression, unspecified; E78.00 Pure hypercholesterolemia, unspecified; I25.5 Ischemic cardiomyopathy; I25.10 Atherosclerotic heart disease of native coronary artery without angina pectoris; F17.210 Nicotine dependence, cigarettes, uncomplicated; I25.2 Old myocardial infarction; F41.0 Panic disorder [episodic paroxysmal anxiety]; G89.4 Chronic pain syndrome; R45.1 Restlessness and agitation; R73.9 Hyperglycemia, unspecified; T38.0X5A Adverse effect of glucocorticoids and synthetic analogues, initial encounter; Z91.148 Patient's other noncompliance with medication regimen for other reason; Z79.01 Long term (current) use of anticoagulants; Z79.51 Long term (current) use of inhaled steroids; Z79.891 Long term (current) use of opiate analgesic; Z79.899 Other long term (current) drug therapy; Z86.16 Personal history of COVID-19; Z86.718 Personal history of other venous thrombosis and embolism; Z86.73 Personal history of transient ischemic attack (TIA), and cerebral infarction without residual deficits; Z82.49 Family history of ischemic heart disease and other diseases of the circulatory system
CPT/HCPCS: 36415; 71045; 80048; 80061; 80076; 83735; 83880; 84100; 84443; 84484; 85025; 85027; 85610; 85730; 87040; 87449; 87633; 87635; 87641; 93005; 93306; 93454; 94640; 97162; 97165; 97530; 97535; 99152; 99153; 99285; 99406; Q9957; Q9967; A4216; C1769; C1894; C8929; J1938

== ENCOUNTER 2025-08-21 12:25 | Inpatient (IN) | payer MEDICARE, MEDICAID, SELFPAY ==
[2025-08-21] VITALS (12 sets, daily range): BP systolic 96–127; BP diastolic 62–85; PULSE 64–79; RESP 14–23; TEMP 36.1–37.2; O2SAT 84–99; BMI 26.6; BMI 26.8
--- NOTE | 2025-08-21 13:11 | EKG12_ITS ---
Test Reason : Blood Pressure : */* mmHG Vent. Rate : 70 BPM Atrial Rate : 70 BPM P-R Int : 136 ms QRS Dur : 104 ms QT Int : 398 ms P-R-T Axes : 49 44 73 degrees QTcB Int : 429 ms Sinus rhythm with occasional Premature ventricular complexes Possible Inferior infarct , age undetermined Possible Anterolateral infarct , age undetermined Abnormal ECG Confirmed by CECI MARTINEZ, GEO ([id number]), desk editor MICAH SALMERON ([id number]) on 08/22/2025 1:25:49 PM Referred By: Confirmed By: GEO ORNELAS MD
--- NOTE | 2025-08-21 13:51 | EX.ED.DYSGE1 ---
HPI History of Present Illness Chief Complaint: Confusion Narrative Narrative: Chief complaint and HPI: 69-year-old female with past medical history of GERD, COPD, HLD, HTN presents from an assisted living facility for evaluation of confusion and frequent falls. Patient currently alert and oriented x 3 however has intermittent confusion when questioning. States she fell 2 days ago when she lost her balance getting off the toilet. Complains of right hip pain. She denies hitting her head. No LOC. Not on blood thinners. She denies any fever, chills, shortness of breath, chest pain abdominal pain, nausea, vomiting, dysuria. She states that her son wanted her to come to the ER today. I personally contacted her son over the telephone, at [phone]. He states that the patient has had increased confusion over the past 2 days. States that she even got lost in the halls at the assisted living facility. Forgetting to take her medicine which is not like her. She fell approximately 5 times over the past 2 days. He states she is intermittently having slurred speech. Review of systems: See HPI Medications: As listed on the chart Allergies: As listed on the chart PFSH: Per chart Vital signs: As listed on the chart. Reviewed. Physical exam: Gen: A&O x3, NAD Head: Normocephalic, atraumatic Eyes: No sclera icterus, conjunctiva clear, PERRL, EOMI ENT: TMs clear bilaterally, moist mucous membranes, face atraumatic, No facial asymmetry Neck: Trachea midline, No JVD, full range of motion, nontender CV: RRR, no murmurs, no peripheral edema Resp: Lungs CTA BL, no w/r/c GI: Abd soft, non-distended, non-tender, no r/r/g Musc: Full ROM although states she has some pain with movement of the right hip, no deformity, strength +5/5 in all extremities, no pronator drift, no ataxia, no midline spinal tenderness, no bony step-offs Skin: Warm, dry Neuro: Alert, oriented but intermittently confused when questioning, grossly intact, sensation intact, no focal deficits, no dysarthria, no aphasia PFS PFS Medical History Chronic pain Kidney disease Asthma Irregular heart beat Congestive heart failure (CHF) TIA (transient ischemic attack) Wears glasses Post-menopausal Arthritis History of renal disease High cholesterol DVT (deep venous thrombosis) Easy bruising Excessive bleeding Back pain Injury of back History of ulceration Difficulty chewing Gastric reflux Shortness of breath on exertion Hoarseness Chronic cough Leg cramps History of pain when walking History of edema History of echocardiogram History of stress test Cardiology follow-up encounter History of CHF (congestive heart failure) History of irregular heartbeat Chest pain Bullous emphysema COPD with asthma Esophagitis, unspecified without bleeding Unspecified combined 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 Other chronic pain Elevated troponin Sustained SVT Depression Osteoporosis Kidney stones Smoker Myocardial infarct History of non-ST elevation myocardial infarction (NSTEMI) (09/01/21) Essential hypertension Old anterior wall myocardial infarction Ischemic cardiomyopathy Opiate dependence Anxiety and depression TIA (transient ischemic attack) Obesity (BMI 30.0-34.9) EVELYN (obstructive sleep apnea) Personal history of transient ischemic attack (TIA), and cerebral infarction without residual deficits COPD (chronic obstructive pulmonary disease) Calculus of left kidney GERD (gastroesophageal reflux disease) Hyperlipidemia Atherosclerotic heart disease of [place] coronary artery without angina pectoris Tobacco abuse Home Medications ?Medication ?Instructions ?Recorded ?Last Taken ?Type inhalational spacing device #1 ea 02/17/23 Unknown Rx (Aerochamber MV spacer) lorazepam 1 mg tablet (Ativan) 1 mg PO TID PRN anxiety 07/16/23 09/27/24 History nitroglycerin 0.4 mg sublingual 0.4 mg buccal Q5M PRN chest pain 07/29/23 Unknown History tablet albuterol 90 mcg-budesonide 80 1 - 2 inh inhalation BID PRN 09/28/24 09/27/24 History mcg/actuation HFA aerosol inhaler shortness of breath (Airsupra) atorvastatin 40 mg tablet 40 mg PO QHS cholesterol 09/28/24 09/27/24 History cholecalciferol (vitamin D3) 125 125 mcg PO DAILY supplement 09/28/24 09/27/24 History mcg (5,000 unit) capsule hydrocodone-acetaminophen 5-325mg 1 tab PO BID pain 09/28/24 09/27/24 History 5mg-325mg polyethylene glycol 3350 17 17 g PO DAILY constipation 09/28/24 09/27/24 History gram/dose oral powder promethazine 25 mg tablet 25 mg PO Q6H PRN nausea and 09/28/24 Unknown History vomiting carvedilol 25 mg tablet 25 mg PO BID heart #120 tabs 10/04/24 Unknown Rx omeprazole 40 mg capsule,delayed 40 mg PO QDAY GERD 01/13/25 Unknown History release potassium chloride 20 mEq 20 meq PO QDAY supplement 01/13/25 Unknown History tablet,extended release spironolactone 25 mg tablet 25 mg PO QDAY blood pressure 01/13/25 Unknown History empagliflozin 10 mg tablet 10 mg PO DAILY 30 days #30 tabs 05/29/25 Unknown Rx (Jardiance) rivaroxaban 20 mg tablet (Xarelto) 20 mg PO DINNER 30 days #30 tabs 05/29/25 Unknown Rx sacubitril 24 mg-valsartan 26 mg 0.5 tab PO BID 30 days #30 tabs 05/29/25 Unknown Rx tablet acetaminophen 325 mg capsule 650 mg PO Q4H PRN fever or pain 08/21/25 Unknown History albuterol sulfate 90 mcg/actuation 2 inh inhalation Q4H PRN shortness 08/21/25 Unknown History aerosol inhaler (Ventolin HFA) of breath or wheezing duloxetine 60 mg capsule,delayed 60 mg PO DAILY 08/21/25 Unknown History release furosemide 20 mg tablet 20 mg PO DAILY 08/21/25 Unknown History ketoconazole 2 % shampoo 1 applic topical .COMPLEX 08/21/25 Unknown History magnesium hydroxide 400 mg/5 mL 30 ml PO DAILY PRN constipation 08/21/25 Unknown History oral suspension (Milk of Magnesia) mirtazapine 15 mg tablet 15 mg PO QHS 08/21/25 Unknown History oxycodone myristate 18 mg capsule 18 mg PO BID 08/21/25 Unknown History sprinkle extended release 12hr(DON'T CRUSH) (Xtampza ER) sennosides 8.6 mg-docusate sodium 1 tab-cap PO BID 08/21/25 Unknown History 50 mg tablet (Senexon-S) sodium phosphates 19 gram-[address] PRN PRN constipation 08/21/25 Unknown History gram/118 mL enema (Enema) sucralfate 100 mg/mL oral 1 g PO Q6H 08/21/25 Unknown History suspension Allergy/AdvReac Type Severity Reaction Status Date / Time Iodinated Contrast Media Allergy SOB Verified 08/21/25 12:26 (iodine contrast) Family History Mother Hypertension CAD (coronary artery disease) CVA (cerebral vascular accident) Myocardial infarction Grandmother Myocardial infarction Surgical History History of cholecystectomy Hx of esophagogastroduodenoscopy History of cardiac catheterization History of hysterectomy History of left heart catheterization (01/20/22) History of total hysterectomy Hx of appendectomy Social History household members: none Smoking Status: Current some day smoker tobacco type: cigarettes alcohol intake: never substance use type: does not use EXAM Physical Exam Const Vital Signs: 08/21/25 12:26 08/21/25 12:58 08/21/25 12:59 Temperature 97.4 F L Temperature Source Temporal Pulse Rate 76 Respiratory Rate 18 Blood Pressure 120/85 H Blood Pressure Mean 96 Pulse Ox 92 84 92 Oxygen Delivery Method Room Air Nasal Cannula Oxygen Flow Rate (L/min) 2 08/21/25 13:55 08/21/25 15:42 08/21/25 15:43 Temperature 96.9 F L Temperature Source Temporal Pulse Rate 69 71 73 Respiratory Rate 23 H 20 H 18 Blood Pressure 96/63 105/81 H Blood Pressure Mean 74 90 Pulse Ox 94 Oxygen Delivery Method Nasal Cannula Oxygen Flow Rate (L/min) 2 08/21/25 15:45 Temperature Temperature Source Pulse Rate 72 Respiratory Rate 14 Blood Pressure Blood Pressure Mean Pulse Ox 92 Oxygen Delivery Method Nasal Cannula Oxygen Flow Rate (L/min) 3 MDM MDM MDM Narrative Medical decision making narrative: 69-year-old female with past medical history of GERD, COPD, HLD, HTN presents from an assisted living facility for evaluation of confusion and frequent falls. Patient currently alert and oriented x 3 however has intermittent confusion when questioning. History taken by patient as well as son, see HPI. On presentation, patient no acute distress. Vitals are relatively stable. She did become hypoxic into the 80s in which she was placed on 2 L nasal cannula. She does periodically wear oxygen. Differential diagnosis includes but is not limited to UTI, pneumonia, viral illness, electrolyte abnormality, dehydration, intracranial abnormality. EKG and chest x-ray reviewed see below. X-ray of the hip/pelvis was personally viewed interpreted by me, ED physician. No fracture or dislocation. Radiology in agreement. CBC without leukocytosis. Patient has anemia of 11.2. Platelets unremarkable. Coagulation panel relatively unremarkable. CMP shows JOVANY with BUN of 55 and creatinine 1.58. Patient receiving fluids. No transaminitis. Lactic acid unremarkable. CPK mildly elevated 286 but not rhabdomyolysis. Troponin elevated at 35. Patient not endorsing chest pain. Will get delta. CT of the head shows focal area of encephalomalacia in the posterior right parietal occipital lobe. No acute abnormality is seen. Suggestive of old ischemic insult. Was not seen on prior study. UA pending at this time. Patient was signed out to Dr. Dwyer to await the urine results. Regardless patient will need to come in for altered mental status. He will discuss with hospitalist. EKG: Interpreted by me/EM physician: EKG shows sinus rhythm with PVCs. Nonspecific ST changes. Lots of artifact. Heart rate 70. Diagnostic: Interpreted by me/EM physician: Chest x-ray pneumonia, effusion, cardiomegaly, pneumothorax. Hernia. Radiology in agreement. Impression: 1. Altered mental status 2. Frequent falls 3. JOVANY with dehydration 4. Old ischemic insult however new from previous CT Lab Data Labs: Laboratory Results - last 24 hr 08/21/25 13:48 WBC 6.8 RBC 3.62 L Hgb 11.2 L Hct 36.1 L MCV 99.7 H MCH 30.9 MCHC 31.0 L RDW Std Deviation 47.9 H RDW Coeff of Sariah 13.1 Plt Count 187 MPV 10.7 Immature Gran % (Auto) 0.400 Neut % (Auto) 69.5 Lymph % (Auto) 18.1 L [place] % (Auto) 9.8 Eos % (Auto) 1.5 Baso % (Auto) 0.7 Absolute Neuts (auto) 4.8 Absolute Lymphs (auto) 1.24 Nucleated RBC % 0 PT 15.4 H INR 1.2 APTT 34.3 Sodium 141 Potassium 4.4 Chloride 105 Carbon Dioxide 28.0 Anion Gap 8 BUN 55 H Creatinine 1.58 H Estim Creat Clear Calc 34.02 L Est GFR (MDRD) Non-Af 35 L BUN/Creatinine Ratio 34.5 H Glucose 123 H Lactic Acid < 1.0 Calcium 9.7 Total Bilirubin 0.31 AST 28 ALT 16 Alkaline Phosphatase 76 Total Creatine Kinase 286 H Troponin T High Sens 35 H D Total Protein 6.4 Albumin 3.4 Globulin 3.1 Albumin/Globulin Ratio 1.1 Radiography Diagnostic Testing: Clinical Impression(s) from Imaging Studies Brain CT 08/21/25 14:00 IMPRESSION: Focal area of encephalomalacia in the posterior right parieto-occipital lobe. No acute abnormality is seen. Reading Location: [id number] Chest X-Ray 08/21/25 14:15 IMPRESSION: Hiatal hernia. No acute infiltrate is seen. Reading Location: [id number] Hip/Pelvis X-Ray 08/21/25 14:15 IMPRESSION: No fracture seen. Degenerative changes as described. Reading Location: [id number] Discharge Plan Triage Chief Complaint: Confusion ED Provider: [place] Mi Dx/Rx/DC Orders Prescriptions: No Action (DME) Aerochamber MV Spacer See Rx Instructions .ROUTE .MEDSUPPLY Qty: 1 0RF Rx Instructions: As directed lorazepam [Ativan] 1 mg tablet 1 mg PO TID PRN (Reason: anxiety) carvedilol 25 mg tablet 25 mg PO BID Qty: 120 3RF Rx Instructions: must administer with a meal/food omeprazole 40 mg capsule,delayed release(DR/EC) 40 mg PO QDAY spironolactone 25 mg tablet 25 mg PO QDAY potassium chloride 20 mEq tablet extended release 20 meq PO QDAY nitroglycerin 0.4 mg tablet, sublingual 0.4 mg buccal Q5M PRN (Reason: chest pain) promethazine 25 mg tablet 25 mg PO Q6H PRN (Reason: nausea and vomiting) hydrocodone-acetaminophen 5-325 mg tablet 1 tab PO BID Airsupra 90-80 mcg/actuation HFA aerosol inhaler 1 - 2 inh INHALATION BID PRN (Reason: shortness of breath) Patient Comments: [NO ORIGINAL SIG] atorvastatin 40 mg tablet 40 mg PO QHS polyethylene glycol 3350 17 gram/dose powder 17 g PO DAILY cholecalciferol (vitamin D3) 125 mcg (5,000 unit) capsule 125 mcg PO DAILY Xarelto 20 mg Tablet 20 mg PO DINNER 30 Days Qty: 30 0RF Jardiance 10 mg Tablet 10 mg PO DAILY 30 Days Qty: 30 0RF sacubitril-valsartan 24-26 mg Tablet 0.5 tab PO BID 30 Days Qty: 30 0RF mirtazapine 15 mg tablet 15 mg PO QHS Patient Comments: [NO ORIGINAL SIG] duloxetine 60 mg capsule,delayed release(DR/EC) 60 mg PO DAILY sennosides-docusate sodium [Senexon-S] 8.6-50 mg tablet 1 tab-cap PO BID sucralfate 100 mg/mL suspension 1 g PO Q6H Patient Comments: [NO ORIGINAL SIG] Xtampza ER 18 mg cap,sprinkl,ER12hr(DONT CRUSH) 18 mg PO BID Rx Instructions: must administer with a meal/food furosemide 20 mg tablet 20 mg PO DAILY Patient Comments: [NO ORIGINAL SIG] acetaminophen 325 mg capsule 650 mg PO Q4H PRN (Reason: fever or pain) albuterol sulfate [Ventolin HFA] 90 mcg/actuation HFA aerosol inhaler 2 inh inhalation Q4H PRN (Reason: shortness of breath or wheezing) Enema 19-7 gram/118 mL enema [address] PRN PRN (Reason: constipation) ketoconazole 2 % shampoo 1 applic topical .COMPLEX Rx Instructions: 1 applic topically 3XW; magnesium hydroxide [Milk of Magnesia] 400 mg/5 mL suspension 30 ml PO DAILY PRN (Reason: constipation) Primary Care Provider: Sandy Barbosa Referrals: Sandy Barbosa MD [Primary Care Provider, Internal Medicine] Print Language: [place]
[2025-08-21] MEDS: 0.9% Normal Saline (1000mL) 1,000 ML 1000 ML IV (13:59)
--- NOTE | 2025-08-21 14:00 | CT_ITS ---
PROCEDURE: BRAIN/HEAD WITHOUT CONTRAST 08/21/2025 REASON FOR EXAM: AMS TECHNIQUE: Procedure Code: CTBR Modality: CT Procedure: BRAIN/HEAD WITHOUT CONTRAST Coronal and Sagittal reconstruction series were provided. One or more dose reduction techniques were used (e.g., Automated exposure control, adjustment of the mA and/or kV according to patient size, use of iterative reconstruction technique. RADIATION DOSE SUMMARY: CTDlvol: 44.99 mGy DLP: 796.11 mGycm COMPARISON: January 01, 2022. FINDINGS: Brain: Focal area of encephalomalacia in the posterior right parieto-occipital lobes. This is suggestive of old ischemic insult. This was not seen on prior study. CSF Spaces: Mild generalized cerebral atrophy Sinuses/Mastoids: Minimal mucosal thickening along the lateral aspect of the right maxillary sinus. Bones: Unremarkable CT/Brain/Head without Contrast IMPRESSION: Focal area of encephalomalacia in the posterior right parieto-occipital lobe. No acute abnormality is seen. Reading Location: [facility]
[2025-08-21 14:07] LABS: Hematocrit 36.1 % (37-47); Hemoglobin 11.2 g/dL (12.0-15.0); Immature Granulocytes Count 0.030 X10^3/uL (0.0-0.0); Mean Corp Hgb Conc 31.0 g/dL (32-36); Mean Corpuscular Volume 99.7 fL (81-99); Mean Platelet Vol. 10.7 fl (6.2-12.0); NRBC Flagged by Analyzer 0 % (0-5); Platelet Count 187 K/mm3 (150-450); RBC Distribution Width CV 13.1 % (11.6-14.6); RBC Distribution Width SD 47.9 fl (35.1-43.9); Red Blood Count 3.62 M/mm3 (4.2-5.4); White Blood Count 6.8 K/mm3 (4.4-11.0)
--- NOTE | 2025-08-21 14:15 | RAD_ITS ---
PROCEDURE: HIP, UNI W/ PELVIS 2-3 VIEWS 08/21/2025 REASON FOR EXAM: PAIN. Recent fall. TECHNIQUE: Procedure Code: [facility] Modality: DX Procedure: HIP, UNI W/ PELVIS 2-3 VIEWS Laterality: Right hip COMPARISON: None FINDINGS: Bones: No fracture seen. Joints: Osteoarthritis with joint space narrowing of the symphysis pubis. Mild degree of joint space narrowing of both hip joints. No fracture or dislocation. Soft tissues: Large amount of fecal material is seen in the colon. Other: RAD/HIP, UNI W/ Pelvis 2-3 Views IMPRESSION: No fracture seen. Degenerative changes as described. Reading Location: [facility]
--- NOTE | 2025-08-21 14:15 | RAD_ITS ---
PROCEDURE: CHEST PA AND LATERAL 08/21/2025 REASON FOR EXAM: AMS TECHNIQUE: Procedure Code: RADCXR Modality: DX Procedure: CHEST PA AND LATERAL COMPARISON: Prior study dated May 26, 2025. FINDINGS: Hardware: EKG electrodes are seen. Heart: Mild cardiomegaly. Mediastinum: The mediastinal contour is stable. Lungs: Hyperinflation. Stable mild increased interstitial markings at the lung bases suggestive of scarring. No focal infiltrate is seen. Bones: Degenerative changes are identified within the thoracic spine. Loss of height of a mid dorsal vertebrae. Moderate-sized hiatal hernia. RAD/Chest PA and Lateral IMPRESSION: Hiatal hernia. No acute infiltrate is seen. Reading Location: [facility]
[2025-08-21 14:17] LABS: AST(SGOT) 28 U/L (<=31); Alanine Aminotransfer ALT/SGPT 16 U/L (<=34); Albumin, Serum 3.4 g/dL (3.4-4.8); Alkaline Phosphatase 76 U/L (35-104); Anion Gap 8 (5-15); BUN 55 mg/dL (4-19); BUN/Creat Ratio 34.5 RATIO (10-20); CPK Total, Creatine Kinase 286 U/L (24-195); Calcium,Total 9.7 mg/dL (7.6-11.0); Carbon Dioxide 28.0 mmol/L (21.0-32.0); Chloride 105 mmol/L (98-108); Estimated Creatinine Clearance 34.02 ml/min (50-250); Globulin 3.1 g/dL (2.2-4.2); Glucose 123 mg/dL (70-99); Potassium 4.4 mmol/L (3.3-5.1)
[2025-08-21 14:37] LABS: Prothrombin Time (Protime)PT. 15.4 SECONDS (11.7-14.9)
[2025-08-21 14:38] LABS: Partial Thromboplast Time 34.3 Seconds (24.1-36.2)
[2025-08-21 16:12] LABS: Mucous, Urine 0 SEEN /hpf (<or=2+); Squamous Epithelial Cells - UA 0 SEEN /hpf (5-10)
[2025-08-21 16:45] LABS: Troponin T High Sensitivity 35 ng/L (<=14)
[2025-08-21 17:27] LABS: Troponin T High Sens 2 HR 31 ng/L (<=14)
--- NOTE | 2025-08-21 17:34 | PCM.HP.STD ---
HPI - General General Date of Admission: 08/21/25 Date of Service: 08/21/25 Chief Complaint: Altered mental status and recent falls HPI Narrative ECHO KERNS, is a 69 F who presented to [facility] ED on 08/21/25 with altered mental status and recent falls. Patient lives in assisted living. Medical history significant for HFrEF, nonobstructive CAD, LV mural thrombus, COPD, hypertension, hyperlipidemia, chronic pain syndrome and depression/anxiety. She was last hospitalized here in May for chest pain and concern for NSTEMI. Left heart cath showed nonobstructive coronary disease and recommendation was for medical management. Echo did show an LV mural thrombus and patient was placed on anticoagulation at that time. Patient's son had her brought to the ED today as she has had worsening confusion and intermittent falls over the past few days. He noted that she had gotten lost in the halls at assisted living and it was unclear what medications she was taking. He was concerned she was having slurred speech at times as well. In the ED she was normotensive, in normal sinus rhythm, and afebrile. She was requiring 2 L nasal cannula to maintain appropriate oxygen saturations. CBC was unremarkable. BMP notable for creatinine 1.58 (baseline around 0.7) and BUN 55. VBG with pH 7.35. CPK 286. CT brain was unremarkable. Chest x-ray showed stable increased interstitial markings at the lung bases, no other concerning findings. Hip/pelvis x-ray was negative. UA showed 4+ bacteria but negative leukocyte esterase and nitrates. Given her JOVANY and altered mentation, hospitalist was contacted for admission. I saw the patient at bedside in the ED. Patient was sitting back in bed comfortably and in no acute distress. She was oriented to person and place but not time. She knew that it was August but thought it was 1994. She could not tell me where she lived or what brought her in today. She did not any acute pain or discomfort currently. She denied any weakness or numbness/tingling, and she had no slurred speech for me. No other acute concerns currently. Will be admitted for further management. [facility] Medical History Chronic pain Kidney disease Asthma Irregular heart beat Congestive heart failure (CHF) TIA (transient ischemic attack) Wears glasses Post-menopausal Arthritis History of renal disease High cholesterol DVT (deep venous thrombosis) Easy bruising Excessive bleeding Back pain Injury of back History of ulceration Difficulty chewing Gastric reflux Shortness of breath on exertion Hoarseness Chronic cough Leg cramps History of pain when walking History of edema History of echocardiogram History of stress test Cardiology follow-up encounter History of CHF (congestive heart failure) History of irregular heartbeat Chest pain Bullous emphysema COPD with asthma Esophagitis, unspecified without bleeding Unspecified combined 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 Other chronic pain Elevated troponin Sustained SVT Depression Osteoporosis Kidney stones Smoker Myocardial infarct History of non-ST elevation myocardial infarction (NSTEMI) (09/01/21) Essential hypertension Old anterior wall myocardial infarction Ischemic cardiomyopathy Opiate dependence Anxiety and depression TIA (transient ischemic attack) Obesity (BMI 30.0-34.9) EVELYN (obstructive sleep apnea) Personal history of transient ischemic attack (TIA), and cerebral infarction without residual deficits COPD (chronic obstructive pulmonary disease) Calculus of left kidney GERD (gastroesophageal reflux disease) Hyperlipidemia Atherosclerotic heart disease of [place] coronary artery without angina pectoris Tobacco abuse Home Medications ?Medication ?Instructions ?Recorded ?Last Taken ?Type inhalational spacing device #1 ea 02/17/23 Unknown Rx (Aerochamber MV spacer) lorazepam 1 mg tablet (Ativan) 1 mg PO TID PRN anxiety 07/16/23 09/27/24 History nitroglycerin 0.4 mg sublingual 0.4 mg buccal Q5M PRN chest pain 07/29/23 Unknown History tablet albuterol 90 mcg-budesonide 80 1 - 2 inh inhalation BID PRN 09/28/24 09/27/24 History mcg/actuation HFA aerosol inhaler shortness of breath (Airsupra) atorvastatin 40 mg tablet 40 mg PO QHS cholesterol 09/28/24 09/27/24 History cholecalciferol (vitamin D3) 125 125 mcg PO DAILY supplement 09/28/24 09/27/24 History mcg (5,000 unit) capsule hydrocodone-acetaminophen 5-325mg 1 tab PO BID pain 09/28/24 09/27/24 History 5mg-325mg polyethylene glycol 3350 17 17 g PO DAILY constipation 09/28/24 09/27/24 History gram/dose oral powder promethazine 25 mg tablet 25 mg PO Q6H PRN nausea and 09/28/24 Unknown History vomiting carvedilol 25 mg tablet 25 mg PO BID heart #120 tabs 10/04/24 Unknown Rx omeprazole 40 mg capsule,delayed 40 mg PO QDAY GERD 01/13/25 Unknown History release potassium chloride 20 mEq 20 meq PO QDAY supplement 01/13/25 Unknown History tablet,extended release spironolactone 25 mg tablet 25 mg PO QDAY blood pressure 01/13/25 Unknown History empagliflozin 10 mg tablet 10 mg PO DAILY 30 days #30 tabs 05/29/25 Unknown Rx (Jardiance) rivaroxaban 20 mg tablet (Xarelto) 20 mg PO DINNER 30 days #30 tabs 05/29/25 Unknown Rx sacubitril 24 mg-valsartan 26 mg 0.5 tab PO BID 30 days #30 tabs 05/29/25 Unknown Rx tablet acetaminophen 325 mg capsule 650 mg PO Q4H PRN fever or pain 08/21/25 Unknown History albuterol sulfate 90 mcg/actuation 2 inh inhalation Q4H PRN shortness 08/21/25 Unknown History aerosol inhaler (Ventolin HFA) of breath or wheezing duloxetine 60 mg capsule,delayed 60 mg PO DAILY 08/21/25 Unknown History release furosemide 20 mg tablet 20 mg PO DAILY 08/21/25 Unknown History ketoconazole 2 % shampoo 1 applic topical .COMPLEX 08/21/25 Unknown History magnesium hydroxide 400 mg/5 mL 30 ml PO DAILY PRN constipation 08/21/25 Unknown History oral suspension (Milk of Magnesia) mirtazapine 15 mg tablet 15 mg PO QHS 08/21/25 Unknown History oxycodone myristate 18 mg capsule 18 mg PO BID 08/21/25 Unknown History sprinkle extended release 12hr(DON'T CRUSH) (Xtampza ER) sennosides 8.6 mg-docusate sodium 1 tab-cap PO BID 08/21/25 Unknown History 50 mg tablet ([place]-S) sodium phosphates 19 gram-7 118 ml OK PRN PRN constipation 08/21/25 Unknown History gram/118 mL enema (Enema) sucralfate 100 mg/mL oral 1 g PO Q6H 08/21/25 Unknown History suspension Allergy/AdvReac Type Severity Reaction Status Date / Time Iodinated Contrast Media Allergy SOB Verified 08/21/25 12:26 (iodine contrast) Family History Mother Hypertension CAD (coronary artery disease) CVA (cerebral vascular accident) Myocardial infarction Grandmother Myocardial infarction Surgical History History of cholecystectomy Hx of esophagogastroduodenoscopy History of cardiac catheterization History of hysterectomy History of left heart catheterization (01/20/22) History of total hysterectomy Hx of appendectomy Social History (Updated 08/21/25 @ 18:31 by Keesha Garduno) household members: none housing: assisted living facility Smoking Status: Current some day smoker tobacco type: cigarettes alcohol intake: never substance use type: does not use ROS Constitutional Constitutional: Denies chills, fever(s) or weakness Cardiovascular Cardiovascular: Denies chest pain Respiratory/Chest Respiratory/Chest: Denies shortness of breath at rest Gastrointestinal Gastrointestinal: Denies abdominal pain Neurologic Neurologic: Reports confusion; Denies dizziness, focal weakness, headache(s), numbness or tingling Vital Signs Vital Signs Vital Signs: 08/21/25 12:26 08/21/25 12:58 08/21/25 12:59 Temperature 97.4 F L Temperature Source Temporal Pulse Rate 76 Respiratory Rate 18 Blood Pressure 120/85 H Blood Pressure Mean 96 Pulse Ox 92 84 92 Oxygen Delivery Method Room Air Nasal Cannula Oxygen Flow Rate (L/min) 2 08/21/25 13:55 08/21/25 15:42 08/21/25 15:43 Temperature 96.9 F L Temperature Source Temporal Pulse Rate 69 71 73 Respiratory Rate 23 H 20 H 18 Blood Pressure 96/63 105/81 H Blood Pressure Mean 74 90 Pulse Ox 94 Oxygen Delivery Method Nasal Cannula Oxygen Flow Rate (L/min) 2 08/21/25 15:45 08/21/25 17:00 Temperature Temperature Source Pulse Rate 72 79 Respiratory Rate 14 23 H Blood Pressure 122/73 H Blood Pressure Mean 89 Pulse Ox 92 95 Oxygen Delivery Method Nasal Cannula Nasal Cannula Oxygen Flow Rate (L/min) 3 3 Weight Weight: 72.6 kg Body Mass Index (BMI) 26.6 Physical Exam Const alert, no apparent distress and average body habitus Constitutional Narrative: Elderly female, mildly fatigued appearing, alert and oriented to person and place but not time and confused appearing, not able to answer most questions appropriately, otherwise sitting back in bed and in no acute distress. General Appearance: cooperative and comfortable Orientation / Consciousness: confused HEENT normocephalic, head/scalp atraumatic, hearing grossly normal bilaterally, nasal mucous membranes and turbinates normal and moist oral mucous membranes Eyes PERRL, EOMs intact bilaterally and conjunctivae normal Neck full ROM Chest inspection of chest normal Resp normal respiratory effort, normal air movement, no use of accessory muscles and clear to auscultation bilaterally Cardio regular rate, regular rhythm, no murmurs and peripheral pulses 2+ throughout GI normal to inspection, nondistended, normoactive bowel sounds, soft to palpation, non-tender and non-distended Back/Spine normal ROM Extremity normal to inspection, full ROM and no pedal edema Skin no rashes or lesions noted Neuro CN's II-XII intact bilaterally, moves all extremities and no focal motor deficits Coordination / Balance: [id number] test normal Results Lab / Micro Data 08/21/25 13:48 08/21/25 13:48 Labs: Laboratory Results - last 24 hr 08/21/25 13:48: WBC 6.8, RBC 3.62 L, Hgb 11.2 L, Hct 36.1 L, MCV 99.7 H, MCH 30.9, MCHC 31.0 L, RDW Std Deviation 47.9 H, RDW Coeff of Sariah 13.1, Plt Count 187, MPV 10.7, Immature Gran % (Auto) 0.400, Neut % (Auto) 69.5, Lymph % (Auto) 18.1 L, [place] % (Auto) 9.8, Eos % (Auto) 1.5, Baso % (Auto) 0.7, Absolute Neuts (auto) 4.8, Absolute Lymphs (auto) 1.24, Nucleated RBC % 0, PT 15.4 H, INR 1.2, APTT 34.3, Sodium 141, Potassium 4.4, Chloride 105, Carbon Dioxide 28.0, Anion Gap 8, BUN 55 H, Creatinine 1.58 H, Estim Creat Clear Calc 34.02 L, Est GFR (MDRD) Non-Af 35 L, BUN/Creatinine Ratio 34.5 H, Glucose 123 H, Lactic Acid < 1.0, Calcium 9.7, Total Bilirubin 0.31, AST 28, ALT 16, Alkaline Phosphatase 76, Total Creatine Kinase 286 H, Troponin T High Sens 35 H D, Total Protein 6.4, Albumin 3.4, Globulin 3.1, Albumin/Globulin Ratio 1.1 08/21/25 15:39: Troponin T Hi Sens 2 Hr 31 H Micro: Microbiology 08/21/25 13:54 Mucosa - Nose SARS-CoV-2, Influenza & RSV (PCR) - Final Imaging Radiology Impression Brain CT 08/21/25 14:00 IMPRESSION: Focal area of encephalomalacia in the posterior right parieto-occipital lobe. No acute abnormality is seen. Reading Location: [id number] Chest X-Ray 08/21/25 14:15 IMPRESSION: Hiatal hernia. No acute infiltrate is seen. Reading Location: [id number] Hip/Pelvis X-Ray 08/21/25 14:15 IMPRESSION: No fracture seen. Degenerative changes as described. Reading Location: [facility] Assessment & Plan Assessment/Plan (1) Acute encephalopathy: (2) JOVANY (acute kidney injury): PLAN: Plan Patient is a 69-year-old female who presented to [facility] ED on 08/21/2025 with altered mental status and recent falls. 1. Acute encephalopathy with recent falls in setting of chronic debility ? Admit under inpatient status to PCU. PT/OT/case management consulted. Patient lives in an assisted living. Highest suspicion is for acute toxic encephalopathy secondary to home medications for chronic pain and anxiety/depression as below in setting of decreased renal clearance from JOVANY as below. CT brain negative and no focal deficits noted, low concern for stroke so we will hold off on MRI. Will hold evening doses of hydrocodone?acetaminophen and long-acting oxycodone, with plan to restart tomorrow morning. Will hold as needed Ativan until tomorrow morning as well. Further management as below. Appreciate therapy recommendations. 2. JOVANY ? Creatinine 1.58 on admit, baseline around 0.7. Suspect prerenal JOVANY due to slight overdiuresis in setting of chronic HFrEF as below. Given IV fluids on admit, follow-up a.m. BMP and monitor urine output. 3. Elevated CPK level ? CPK 286 on admit, slightly elevated. Given IV fluids on admit as above. Follow-up repeat CPK level tomorrow morning. 4. Acute hypoxia in setting of COPD with emphysema ? Not on home oxygen. Was requiring 2 L nasal cannula on admit to maintain appropriate oxygen saturations. Chest x-ray unremarkable. Suspect mild hypoxia secondary to poor respiratory drive and decreased respiratory excursion in setting of encephalopathy as above. Continue home inhalers. Wean supplemental oxygen as able. 5. Chronic HFrEF, nonobstructive CAD, recent history of LV mural thrombus on Xarelto, hypertension, hyperlipidemia ? Follows cardiology. Last hospitalization here in May for chest pain, see HPI for further details. In short, found on heart cath to have nonobstructive CAD and recommendation was for medical therapy. Was found on echo to have LV mural thrombus and has been on Xarelto since then. Echo showed EF 25% with several regional wall motion abnormalities, no significant valvular disease. Mildly hypotensive to the 100s over 60s on admit. Will hold home Entresto, Jardiance, Lasix and spironolactone. Okay to continue home Coreg, statin and Xarelto. 6. Chronic pain syndrome ? Follows with Dr. Forrest. SHAYRRPrashanth reviewed. As above, will hold evening doses of hydrocodone-acetaminophen and long-acting oxycodone with plan to resume these tomorrow morning. Continue bowel regimen. 7. Anxiety/depression ? As above, will plan to resume home Ativan as needed tomorrow morning. Okay to continue home duloxetine and mirtazapine at night. 8. GERD ? Continue home PPI and sucralfate with meals. DVT prophylaxis: Not indicated, on Xarelto CODE STATUS: Full code, verified Expected disposition: TBD Total clinical time spent by myself addressing the patient's medical issues, reviewing all the data, and collaborating with patient's care team: 77 minutes. Charges/Coding Visit Charges Inpatient E&M: 59730 Init Hosp L3
[2025-08-21 17:37] LABS: Color, Urine Yellow (Yellow); Glucose, Dipstick 1000 mg/dl (Normal); Ketone-Dipstick Negative (Negative); Leukocyte Esterase-Dipstick Negative /ul (Negative); Nitrite-Dipstick Negative (Negative); Occult Blood-Urine 50 /ul (Negative); Protein-Dipstick 30 mg/dl (Negative); Specific Gravity, Urine 1.015 (1.002-1.030); Urine Bilirubin Dipstick Negative (Negative)
[2025-08-21 17:38] LABS: SITE Not entered; VBG BASE EXCESS 0 mmol/L (-1.0-3.5); VBG PO2 16 mmHg (25-40); VBG SO2 20 % (50-70); VBG TCO2 28 mmol/L (23-33)
[2025-08-21 18:36] LABS: Red Blood Cells-Urine 0-5 SEEN /hpf (0-5)
[2025-08-21] MEDS: Lactated Ringers 1,000 ML 150 ML IV (20:18)
[2025-08-21] MEDS: HYDROcodone Bitartrate/Apap 5/325 Tablet PO (21:21)
[2025-08-21] MEDS: Senna/Docusate Sodium 1 Tablet PO (21:24)
[2025-08-22] VITALS (8 sets, daily range): BP systolic 117–132; BP diastolic 71–84; PULSE 70–74; RESP 16–18; TEMP 35.8–36.6; O2SAT 84–97
[2025-08-22 06:08] LABS: Hematocrit 31.9 % (37-47); Hemoglobin 10.2 g/dL (12.0-15.0); Mean Corp Hgb Conc 32.0 g/dL (32-36); Mean Corpuscular Volume 98.8 fL (81-99); Mean Platelet Vol. 10.8 fl (6.2-12.0); Platelet Count 170 K/mm3 (150-450); RBC Distribution Width CV 13.2 % (11.6-14.6); RBC Distribution Width SD 47.3 fl (35.1-43.9); Red Blood Count 3.23 M/mm3 (4.2-5.4); White Blood Count 5.7 K/mm3 (4.4-11.0)
[2025-08-22 06:42] LABS: Anion Gap 7 (5-15); BUN 33 mg/dL (4-19); BUN/Creat Ratio 39.3 RATIO (10-20); Calcium,Total 9.5 mg/dL (7.6-11.0); Carbon Dioxide 27.8 mmol/L (21.0-32.0); Chloride 111 mmol/L (98-108); Estimated Creatinine Clearance 63.51 ml/min (50-250); Glucose 106 mg/dL (70-99); Potassium 4.1 mmol/L (3.3-5.1)
[2025-08-22 06:43] LABS: CPK Total, Creatine Kinase 134 U/L (24-195)
--- NOTE | 2025-08-22 07:22 | PCM.PN.HOSP ---
Reason for Visit Chief Complaint: Altered mental status and recent falls Subjective Subjective Patient is a 69-year-old female who presented to [facility] ED on 08/21/2025 with altered mental status and recent falls. Objective Data Objective Data Vital Signs: Vital Signs Temp Pulse Resp BP Pulse Ox O2 Del Method O2 Flow Rate 97.7 F L 70 16 132/81 H 96 Nasal Cannula 2 08/22/25 06:15 08/22/25 06:15 08/22/25 06:15 08/22/25 06:15 08/22/25 06:15 08/22/25 06:15 08/22/25 06:15 FiO2 95 08/21/25 21:34 Oxygen Flow Rate (L/min) 2 Oxygen Delivery Method Nasal Cannula Weight: 73 kg Body Mass Index (BMI) 26.8 Intake & Output: Intake and Output for Last 24 Hours 08/20/25 08/21/25 08/22/25 23:59 23:59 23:59 Intake Total 1000 / 1000 882.5 / 882.5 Balance 1000 / 1000 882.5 / 882.5 Lab / Micro Data 08/22/25 05:25 08/22/25 05:25 Labs: Laboratory Results - last 24 hr 08/21/25 13:48: WBC 6.8, RBC 3.62 L, Hgb 11.2 L, Hct 36.1 L, MCV 99.7 H, MCH 30.9, MCHC 31.0 L, RDW Std Deviation 47.9 H, RDW Coeff of Sariah 13.1, Plt Count 187, MPV 10.7, Immature Gran % (Auto) 0.400, Neut % (Auto) 69.5, Lymph % (Auto) 18.1 L, [place] % (Auto) 9.8, Eos % (Auto) 1.5, Baso % (Auto) 0.7, Absolute Neuts (auto) 4.8, Absolute Lymphs (auto) 1.24, Nucleated RBC % 0, PT 15.4 H, INR 1.2, APTT 34.3, Sodium 141, Potassium 4.4, Chloride 105, Carbon Dioxide 28.0, Anion Gap 8, BUN 55 H, Creatinine 1.58 H, Estim Creat Clear Calc 34.02 L, Est GFR (MDRD) Non-Af 35 L, BUN/Creatinine Ratio 34.5 H, Glucose 123 H, Lactic Acid < 1.0, Calcium 9.7, Total Bilirubin 0.31, AST 28, ALT 16, Alkaline Phosphatase 76, Total Creatine Kinase 286 H, Troponin T High Sens 35 H D, Total Protein 6.4, Albumin 3.4, Globulin 3.1, Albumin/Globulin Ratio 1.1 08/21/25 15:39: Troponin T Hi Sens 2 Hr 31 H 08/21/25 16:09: Urine Color Yellow, Urine Clarity Clear, Urine pH 6.0, Ur Specific [place] 1.015, Urine Protein 30 H, Urine Glucose (UA) 1000 H, Urine Ketones Negative, Urine Occult Blood 50 H, Urine Nitrite Negative, Urine Bilirubin Negative, Urine Urobilinogen Normal, Ur Leukocyte Esterase Negative, Urine RBC 0-5 SEEN, Urine WBC 5-10 SEEN, Ur Squamous Epith Cells 0 SEEN, Urine Bacteria 4+, Urine Mucus 0 SEEN 08/22/25 05:25: WBC 5.7, RBC 3.23 L, Hgb 10.2 L, Hct 31.9 L, MCV 98.8, MCH 31.6, MCHC 32.0, RDW Std Deviation 47.3 H, RDW Coeff of Sariah 13.2, Plt Count 170, MPV 10.8, Sodium 146 H, Potassium 4.1, Chloride 111 H, Carbon Dioxide 27.8, Anion Gap 7, BUN 33 H, Creatinine 0.83, Estim Creat Clear Calc 63.51, Est GFR (MDRD) Non-Af 77, BUN/Creatinine Ratio 39.3 H, Glucose 106 H, Calcium 9.5, Total Creatine Kinase 134 Micro: Microbiology 08/21/25 13:54 Mucosa - Nose SARS-CoV-2, Influenza & RSV (PCR) - Final ABG Data ABG results: ABG 08/21/25 17:35 Specimen Type JACKI Sample Site Not entered VBG pH 7.35 VBG pO2 16 L* VBG HCO3 26 VBG Total CO2 28 VBG O2 Sat (Calc) 20 L VBG Base Excess 0 POC Mix VBG pCO2 Pt Tmp 47.1 O2 Delivery Device Not entered Crit Call To/Read Back Yes Blood Gas Notified Whom ta Blood Gas Notified Time 17:36:23 Radiography Diagnostic Testing: Radiology Impression Brain CT 08/21/25 14:00 IMPRESSION: Focal area of encephalomalacia in the posterior right parieto-occipital lobe. No acute abnormality is seen. Reading Location: [id number] Chest X-Ray 08/21/25 14:15 IMPRESSION: Hiatal hernia. No acute infiltrate is seen. Reading Location: [id number] Hip/Pelvis X-Ray 08/21/25 14:15 IMPRESSION: No fracture seen. Degenerative changes as described. Reading Location: [id number] Physical Exam Narrative GENERAL: Patient in no apparent respiratory distress HEENT: Atraumatic; normocephalic EYES; Anicteric, Normal Conjunctiva NECK; supple, normal thyroid, RESPIRATORY: Diminished to auscultation CARDIOVASCULAR: Regular S1 S2, GI: soft, normoactive bowel sounds, : No Renal angle tenderness; EXTREMITIES: No edema, no clubbing, MUSCULOSKELETAL: no muscle wasting NEURO: Awake; no lateralizing signs. SKIN: No Rash PSYCH; Flat affect Assessment & Plan Assessment/Plan (1) Acute encephalopathy: (2) JOVANY (acute kidney injury): PLAN: Plan Patient is a 69-year-old female who presented to [facility] ED on 08/21/2025 with altered mental status and recent falls. 1. Acute metabolic encephalopathy ? Secondary to JOVANY admitted to a monitored bed for treatment of the underlying etiology 2. JOVANY ? Creatinine on admission was 1.58 with a baseline creatinine of 0.7. This was thought to be secondary to patient being overdiuresed. Did receive IV fluid with subsequent monitoring of electrolytes ordered 3. Hypernatremia ? Patient started on 0.45 saline, repeat labs ordered for am 4. Chronic congestive heart failure with reduced ejection fraction ? Patient is known to have EF of 25%. Currently remains compensated we will continue with guideline directed medical therapy 5. LV mural thrombus The patient is on systemic anticoagulation with Xarelto 6. Chronic pain syndrome ? Patient follows up with Dr. Yoo as outpatient 7. Depression with anxiety ? Did continue home meds 8. Hypertension ? Blood pressure controlled, home medications continued with dose adjustment as needed 9. Dyslipidemia ?Patient is on statin therapy, continued at home dose 10. GERD ? On omeprazole 11. COPD ? Currently not in exacerbation will continue with bronchodilator treatment as needed as well as supplemental oxygen 12. Physical deconditioning ? Requested for PT OT eval and social studies department chair to assist with discharge planning 13. DVT prophylaxis ? Patient already on systemic anticoagulation with Xarelto Charges/Coding Visit Charges Inpatient E&M: 23735 Subs Hosp L2
[2025-08-22] MEDS: 0.45% Normal Saline 1,000 ML 75 ML IV ×2 (09:12→22:54)
[2025-08-22] MEDS: 0.9% Saline Lock 10 ML Syringe IV ×2 (09:12→21:58)
[2025-08-22] MEDS: Polyethylene Glycol 3350 17 GM PACKET PO (09:45)
[2025-08-22] MEDS: Senna/Docusate Sodium 1 Tablet PO ×2 (09:46→21:58)
[2025-08-22] MEDS: HYDROcodone Bitartrate/Apap 5/325 Tablet PO ×2 (09:46→21:58)
[2025-08-22] MEDS: Cholecalciferol (Vit D3) 125 MCG CAPSULE (5,000 UNITS) PO (09:47)
--- NOTE | 2025-08-22 11:25 | CASEMGMT ---
Social Work SW spoke with the patient and she plans on returning to [facility]. She reported she uses [employer] for her oxygen. SW confirmed with [employer] that the patient is on 2 LPM continuous. NEVAEH Koehler
--- NOTE | 2025-08-22 13:08 | CASEMGMT ---
Discharge Planning Updates faxed to [facility] with note asking for follow up if they have concerns. Fax confirmation rec'd. Maureen Kapoor DC Planning Asst.
[2025-08-23 04:07] VITALS: BP 144/80; PULSE 77; RESP 18; TEMP 36.4; O2SAT 96
[2025-08-23 06:31] VITALS: O2SAT 93
[2025-08-23 06:40] LABS: Hematocrit 35.1 % (37-47); Hemoglobin 10.9 g/dL (12.0-15.0); Immature Granulocytes Count 0.030 X10^3/uL (0.0-0.0); Mean Corp Hgb Conc 31.1 g/dL (32-36); Mean Corpuscular Volume 100.6 fL (81-99); Mean Platelet Vol. 11.1 fl (6.2-12.0); NRBC Flagged by Analyzer 0 % (0-5); Platelet Count 229 K/mm3 (150-450); RBC Distribution Width CV 13.2 % (11.6-14.6); RBC Distribution Width SD 48.5 fl (35.1-43.9); Red Blood Count 3.49 M/mm3 (4.2-5.4); White Blood Count 6.0 K/mm3 (4.4-11.0)
[2025-08-23] MEDS: 0.9% Saline Lock 10 ML Syringe IV (06:57)
[2025-08-23 07:14] LABS: Magnesium 1.9 mg/dL (1.5-2.2)
[2025-08-23 07:22] LABS: Anion Gap 7 (5-15); BUN 16 mg/dL (4-19); BUN/Creat Ratio 24.7 RATIO (10-20); Calcium,Total 9.6 mg/dL (7.6-11.0); Carbon Dioxide 28.8 mmol/L (21.0-32.0); Chloride 109 mmol/L (98-108); Estimated Creatinine Clearance 65.90 ml/min (50-250); Glucose 97 mg/dL (70-99); Potassium 4.4 mmol/L (3.3-5.1)
--- NOTE | 2025-08-23 10:13 | DS.PCM_ITS ---
Providers Date of Admission: 08/21/25 Date of Discharge: 08/23/25 Primary Care Physician: Dr. Sandy Barbosa MD Reason For Visit: AMS W/ FALLS, JOVANY Diagnosis Discharge Diagnosis (1) Acute encephalopathy: Status: Acute Code(s): G93.40 - Encephalopathy, unspecified (2) JOVANY (acute kidney injury): Status: Acute Code(s): N17.9 - Acute kidney failure, unspecified Plan Patient is a 69-year-old female who presented to [facility] ED on 08/21/2025 with altered mental status and recent falls. 1. Acute metabolic encephalopathy ? Secondary to JOVANY admitted to a monitored bed for treatment of the underlying etiology ? 08/23/2024 patient seen back to baseline 2. JOVANY ? Creatinine on admission was 1.58 with a baseline creatinine of 0.7. This was thought to be secondary to patient being overdiuresed. Did receive IV fluid with subsequent monitoring of electrolytes ordered ? 08/23/2025; JOVANY resolved patient to be assessed for discharge 3. Hypernatremia ? Patient started on 0.45 saline, repeat labs ordered for am ? 08/23/2025; sodium level normalized 4. Chronic congestive heart failure with reduced ejection fraction ? Patient is known to have EF of 25%. Currently remains compensated we will continue with guideline directed medical therapy 5. LV mural thrombus The patient is on systemic anticoagulation with Xarelto 6. Chronic pain syndrome ? Patient follows up with Dr. Yoo as outpatient 7. Depression with anxiety ? Did continue home meds 8. Hypertension ? Blood pressure controlled, home medications continued with dose adjustment as needed 9. Dyslipidemia ?Patient is on statin therapy, continued at home dose 10. GERD ? On omeprazole 11. COPD ? Currently not in exacerbation will continue with bronchodilator treatment as needed as well as supplemental oxygen 12. Physical deconditioning ? Requested for PT OT eval and social service worker to assist with discharge planning 13. DVT prophylaxis ? Patient already on systemic anticoagulation with Xarelto 14. Hypophosphatemia ? Corrected per protocol Medications at Discharge Home Medications inhalational spacing device (Aerochamber MV spacer) #1 ea 02/17/23 lorazepam 1 mg tablet (Ativan) 1 mg PO TID PRN anxiety 07/16/23 nitroglycerin 0.4 mg sublingual tablet 0.4 mg buccal Q5M PRN chest pain 07/29/23 albuterol 90 mcg-budesonide 80 mcg/actuation HFA aerosol inhaler (Airsupra) 1 - 2 inh inhalation BID PRN shortness of breath 09/28/24 atorvastatin 40 mg tablet 40 mg PO QHS cholesterol 09/28/24 cholecalciferol (vitamin D3) 125 mcg (5,000 unit) capsule 125 mcg PO DAILY supplement 09/28/24 hydrocodone-acetaminophen 5-325mg 5mg-325mg 1 tab PO BID pain 09/28/24 polyethylene glycol 3350 17 gram/dose oral powder 17 g PO DAILY constipation 09/28/24 promethazine 25 mg tablet 25 mg PO Q6H PRN nausea and vomiting 09/28/24 carvedilol 25 mg tablet 25 mg PO BID heart #120 tabs 10/04/24 omeprazole 40 mg capsule,delayed release 40 mg PO QDAY GERD 01/13/25 potassium chloride 20 mEq tablet,extended release 20 meq PO QDAY supplement 01/13/25 spironolactone 25 mg tablet 25 mg PO QDAY blood pressure 01/13/25 empagliflozin 10 mg tablet (Jardiance) 10 mg PO DAILY 30 days #30 tabs 05/29/25 rivaroxaban 20 mg tablet (Xarelto) 20 mg PO DINNER 30 days #30 tabs 05/29/25 sacubitril 24 mg-valsartan 26 mg tablet 0.5 tab PO BID 30 days #30 tabs 05/29/25 acetaminophen 325 mg capsule 650 mg PO Q4H PRN fever or pain 08/21/25 albuterol sulfate 90 mcg/actuation aerosol inhaler (Ventolin HFA) 2 inh inhalation Q4H PRN shortness of breath or wheezing 08/21/25 duloxetine 60 mg capsule,delayed release 60 mg PO DAILY 08/21/25 furosemide 20 mg tablet 20 mg PO DAILY 08/21/25 ketoconazole 2 % shampoo 1 applic topical .COMPLEX 08/21/25 magnesium hydroxide 400 mg/5 mL oral suspension (Milk of Magnesia) 30 ml PO DAILY PRN constipation 08/21/25 mirtazapine 15 mg tablet 15 mg PO QHS 08/21/25 oxycodone myristate 18 mg capsule sprinkle extended release 12hr(DON'T CRUSH) (Xtampza ER) 18 mg PO BID 08/21/25 sennosides 8.6 mg-docusate sodium 50 mg tablet (Senexon-S) 1 tab-cap PO BID 08/21/25 sodium phosphates 19 gram-7 gram/118 mL enema (Enema) 118 ml WI PRN PRN constipation 08/21/25 sucralfate 100 mg/mL oral suspension 1 g PO Q6H 08/21/25 potassium, sodium phosphates 280 mg-160 mg-250 mg oral powder packet 1 packet PO BID #100 ea 08/23/25 Hospital Course Summary of Care Provided Minutes Spent on Discharge: 32 Physical Exam Narrative GENERAL: Patient in no apparent respiratory distress HEENT: Atraumatic; normocephalic EYES; Anicteric, Normal Conjunctiva NECK; supple, normal thyroid, RESPIRATORY: Diminished to auscultation CARDIOVASCULAR: Regular S1 S2, GI: soft, normoactive bowel sounds, : No Renal angle tenderness; EXTREMITIES: No edema, no clubbing, MUSCULOSKELETAL: no muscle wasting NEURO: Awake; no lateralizing signs. SKIN: No Rash PSYCH; Flat affect Medical Records Data Medical Nutrition Assessment Dietitian: Malnutrition Criteria Met Start: 08/22/25 13:36 Freq: Status: Active Protocol: Document 08/22/25 13:37 PA (Rec: 08/22/25 13:37 PA [id number]) Nutrition Malnutrition Evidence of Yes Malnutrition Exists Malnutrition ( Chronic moderate): Evidenced By Suboptimal Energy Intake (Severe),Weight Loss (Moderate ) Clinical Problem Chronic Disease or Condition Related Malnutrition Etiology related functional decline and altered GI function as it related to Sanchez's esophagus and stomach pain with food consumption Signs/Symptoms Patient reports poor appetite, energy intake <75% x >1 month, and weight loss of 7.5% x 3 months. Status Active Problem Recommendation Dietitian Continue current diet order Recommendations/ order vanilla Ensure PHP BID at breakfast and dinner to Changes promote adequate energy and protein intake. Weight / BMI Weight Weight: 73 kg Body Mass Index (BMI) 26.8 ABG / Lab / Microbiology Data 08/23/25 05:35 08/23/25 05:35 Laboratory: Laboratory Results - last 24 hr 08/23/25 05:35: WBC 6.0, RBC 3.49 L, Hgb 10.9 L, Hct 35.1 L, MCV 100.6 H, MCH 31.2, MCHC 31.1 L, RDW Std Deviation 48.5 H, RDW Coeff of Sariah 13.2, Plt Count 229, MPV 11.1, Immature Gran % (Auto) 0.500, Neut % (Auto) 58.6, Lymph % (Auto) 26.3, [place] % (Auto) 10.2 H, Eos % (Auto) 3.7, Baso % (Auto) 0.7, Absolute Neuts (auto) 3.5, Absolute Lymphs (auto) 1.58, Nucleated RBC % 0, Sodium 145, Potassium 4.4, Chloride 109 H, Carbon Dioxide 28.8, Anion Gap 7, BUN 16, C reatinine 0.66 L, Estim Creat Clear Calc 65.90, Est GFR (MDRD) Non-Af 96, B UN/Creatinine Ratio 24.7 H, Glucose 97, Calcium 9.6, Phosphorus 2.0 L, Magnesium 1.9 Microbiology: Microbiology 08/21/25 13:54 Mucosa - Nose SARS-CoV-2, Influenza & RSV (PCR) - Final D/C Instructions DC O2, CPAP, BIPAP Needs Home O2 Discharge instructions: No Meaningful Use Info Meaningful Use Meaningful Use Diagnoses (Choose all that apply): None applicable Discharge Plan Admission Admit Date/Time: 08/21/25 17:34 Attending Provider: Jones Gregory Primary Care Provider: Sandy Barbosa Consulting Providers: Moreno Palacio Discharge Orders/Prescriptions Prescriptions: New potassium, sodium phosphates 280-160-250 mg Powder In Packet 1 packet PO BID Qty: 100 0RF Continued (DME) Aerochamber MV Spacer See Rx Instructions .ROUTE .MEDSUPPLY Qty: 1 0RF Rx Instructions: As directed lorazepam [Ativan] 1 mg tablet 1 mg PO TID PRN (Reason: anxiety) carvedilol 25 mg tablet 25 mg PO BID Qty: 120 3RF Rx Instructions: must administer with a meal/food omeprazole 40 mg capsule,delayed release(DR/EC) 40 mg PO QDAY spironolactone 25 mg tablet 25 mg PO QDAY potassium chloride 20 mEq tablet extended release 20 meq PO QDAY nitroglycerin 0.4 mg tablet, sublingual 0.4 mg buccal Q5M PRN (Reason: chest pain) promethazine 25 mg tablet 25 mg PO Q6H PRN (Reason: nausea and vomiting) hydrocodone-acetaminophen 5-325 mg tablet 1 tab PO BID Airsupra 90-80 mcg/actuation HFA aerosol inhaler 1 - 2 inh INHALATION BID PRN (Reason: shortness of breath) Patient Comments: [NO ORIGINAL SIG] atorvastatin 40 mg tablet 40 mg PO QHS polyethylene glycol 3350 17 gram/dose powder 17 g PO DAILY cholecalciferol (vitamin D3) 125 mcg (5,000 unit) capsule 125 mcg PO DAILY Xarelto 20 mg Tablet 20 mg PO DINNER 30 Days Qty: 30 0RF Jardiance 10 mg Tablet 10 mg PO DAILY 30 Days Qty: 30 0RF sacubitril-valsartan 24-26 mg Tablet 0.5 tab PO BID 30 Days Qty: 30 0RF mirtazapine 15 mg tablet 15 mg PO QHS Patient Comments: [NO ORIGINAL SIG] duloxetine 60 mg capsule,delayed release(DR/EC) 60 mg PO DAILY sennosides-docusate sodium [Senexon-S] 8.6-50 mg tablet 1 tab-cap PO BID sucralfate 100 mg/mL suspension 1 g PO Q6H Patient Comments: [NO ORIGINAL SIG] Xtampza ER 18 mg cap,sprinkl,ER12hr(DONT CRUSH) 18 mg PO BID Rx Instructions: must administer with a meal/food furosemide 20 mg tablet 20 mg PO DAILY Patient Comments: [NO ORIGINAL SIG] acetaminophen 325 mg capsule 650 mg PO Q4H PRN (Reason: fever or pain) albuterol sulfate [Ventolin HFA] 90 mcg/actuation HFA aerosol inhaler 2 inh inhalation Q4H PRN (Reason: shortness of breath or wheezing) Enema 19-7 gram/118 mL enema 118 ml [place] PRN PRN (Reason: constipation) ketoconazole 2 % shampoo 1 applic topical .COMPLEX Rx Instructions: 1 applic topically 3XW; magnesium hydroxide [Milk of Magnesia] 400 mg/5 mL suspension 30 ml PO DAILY PRN (Reason: constipation) Referrals / Follow Up: Sandy Barbosa MD [Primary Care Provider, Internal Medicine] - Within 2 Weeks Disposition Disposition (needs filled in before D/C Order can be placed): Assisted Living Charges/Coding Visit Charges Inpatient E&M: 35198 Disch Hosp >30min
[2025-08-23 10:39] VITALS: BP 146/87; PULSE 84; RESP 16; TEMP 36.3; O2SAT 94
[2025-08-23] MEDS: Polyethylene Glycol 3350 17 GM PACKET PO (10:42)
[2025-08-23] MEDS: Cholecalciferol (Vit D3) 125 MCG CAPSULE (5,000 UNITS) PO (10:42)
[2025-08-23] MEDS: Senna/Docusate Sodium 1 Tablet PO (10:42)
--- NOTE | 2025-08-23 10:46 | CASEMGMT ---
Social Work SW called [facility]. SW informed them patient is ready for DC. They reported patient can return if she is at baseline. SW reported SW will fax them therapy notes. SW explained patient did well in therapy. AC faxed the therapy notes to the NEVAEH Aguilar
[2025-08-23] MEDS: HYDROcodone Bitartrate/Apap 5/325 Tablet PO (10:47)
[2025-08-23] MEDS: Na Biphos/Potassium Phosphate PACKET 1 PACKET PO (10:47)
--- NOTE | 2025-08-23 12:10 | CASEMGMT ---
Social Work Patient is DC back to [facility] today. AC scheduled [facility] for [facility] transport at 130pm. The patient and nurse were notified. SW notified DC title assistant so the facility could be notified as well. NEVAEH Koehler
--- NOTE | 2025-08-23 12:26 | NURSING ---
Report called to MARGO Corona at [facility] at this time by wally NGUYEN .
--- NOTE | 2025-08-23 13:09 | PHA.DC.MR.R ---
Pharmacy MA Med Reconciliation Pharmacy Service has performed discharge medication reconciliation for this patient. The patient's discharge medication list was reviewed for discrepancies and discrepancies were resolved. Medications at Discharge Home Medications inhalational spacing device (Aerochamber MV spacer) #1 ea 02/17/23 lorazepam 1 mg tablet (Ativan) 1 mg PO TID PRN anxiety 07/16/23 nitroglycerin 0.4 mg sublingual tablet 0.4 mg buccal Q5M PRN chest pain 07/29/23 albuterol 90 mcg-budesonide 80 mcg/actuation HFA aerosol inhaler (Airsupra) 1 - 2 inh inhalation BID PRN shortness of breath 09/28/24 atorvastatin 40 mg tablet 40 mg PO QHS cholesterol 09/28/24 cholecalciferol (vitamin D3) 125 mcg (5,000 unit) capsule 125 mcg PO DAILY supplement 09/28/24 hydrocodone-acetaminophen 5-325mg 5mg-325mg 1 tab PO BID pain 09/28/24 polyethylene glycol 3350 17 gram/dose oral powder 17 g PO DAILY constipation 09/28/24 promethazine 25 mg tablet 25 mg PO Q6H PRN nausea and vomiting 09/28/24 carvedilol 25 mg tablet 25 mg PO BID heart #120 tabs 10/04/24 omeprazole 40 mg capsule,delayed release 40 mg PO QDAY GERD 01/13/25 potassium chloride 20 mEq tablet,extended release 20 meq PO QDAY supplement 01/13/25 spironolactone 25 mg tablet 25 mg PO QDAY blood pressure 01/13/25 empagliflozin 10 mg tablet (Jardiance) 10 mg PO DAILY diabetes 30 days #30 tabs 05/29/25 rivaroxaban 20 mg tablet (Xarelto) 20 mg PO DINNER blood thinner 30 days #30 tabs 05/29/25 sacubitril 24 mg-valsartan 26 mg tablet 0.5 tab PO BID blood pressure 30 days #30 tabs 05/29/25 acetaminophen 325 mg capsule 650 mg PO Q4H PRN fever or pain 08/21/25 albuterol sulfate 90 mcg/actuation aerosol inhaler (Ventolin HFA) 2 inh inhalation Q4H PRN shortness of breath or wheezing 08/21/25 duloxetine 60 mg capsule,delayed release 60 mg PO DAILY mental health 08/21/25 furosemide 20 mg tablet 20 mg PO DAILY diuretic 08/21/25 ketoconazole 2 % shampoo 1 applic topical .COMPLEX dry skin 08/21/25 magnesium hydroxide 400 mg/5 mL oral suspension (Milk of Magnesia) 30 ml PO DAILY PRN constipation 08/21/25 mirtazapine 15 mg tablet 15 mg PO QHS mental health 08/21/25 oxycodone myristate 18 mg capsule sprinkle extended release 12hr(DON'T CRUSH) (Xtampza ER) 18 mg PO BID pain 08/21/25 sennosides 8.6 mg-docusate sodium 50 mg tablet (Senexon-S) 1 tab-cap PO BID laxative 08/21/25 sodium phosphates 19 gram-7 gram/118 mL enema (Enema) 118 ml MD PRN PRN constipation 08/21/25 sucralfate 100 mg/mL oral suspension 1 g PO Q6H reflux 08/21/25 potassium, sodium phosphates 280 mg-160 mg-250 mg oral powder packet 1 packet PO BID #100 ea 08/23/25
[2025-08-23 13:58] VITALS: BP 118/60; PULSE 80; RESP 16; TEMP 36.3; O2SAT 96
== END 2025-08-23 14:34 | disposition home or self-care (01) | DRG 682 ==
LOC: ED 17:22 → PCU 18:09
PROVIDERS: Surgery; Admitting Provider Hospitalist; Emergency Provider Emergency Medicine; PCP Internal Medicine; Visit Provider Internal Medicine
DX: N17.9 Acute kidney failure, unspecified (principal); G93.41 Metabolic encephalopathy; E44.0 Moderate protein-calorie malnutrition; I50.22 Chronic systolic (congestive) heart failure; E87.0 Hyperosmolality and hypernatremia; I51.3 Intracardiac thrombosis, not elsewhere classified; J43.9 Emphysema, unspecified; I11.0 Hypertensive heart disease with heart failure; F32.A Depression, unspecified; E83.39 Other disorders of phosphorus metabolism; E78.00 Pure hypercholesterolemia, unspecified; I25.10 Atherosclerotic heart disease of native coronary artery without angina pectoris; F41.9 Anxiety disorder, unspecified; K21.9 Gastro-esophageal reflux disease without esophagitis; F17.210 Nicotine dependence, cigarettes, uncomplicated; G89.4 Chronic pain syndrome; R29.6 Repeated falls; Z68.26 Body mass index [BMI] 26.0-26.9, adult; Z79.01 Long term (current) use of anticoagulants; Z79.891 Long term (current) use of opiate analgesic; Z79.899 Other long term (current) drug therapy
CPT/HCPCS: 36415; 70450; 71046; 73502; 80048; 80053; 81001; 82550; 82803; 83605; 83735; 84100; 84484; 85025; 85027; 85610; 85730; 87631; 93005; 94668; 97162; 97166; 97802; 99285; A4216

== ENCOUNTER 2025-08-23 22:26 | Emergency (ER) | payer MEDICARE, MEDICAID, SELFPAY ==
[2025-08-23 22:28] VITALS: PULSE 75; RESP 18; TEMP 36.5; O2SAT 89; BMI 28.8
[2025-08-23 22:35] VITALS: BP 146/73; O2SAT 97
--- OUTSIDE RECORDS SUMMARY | 2025-08-23 23:05 | XMS RPT_ITS | CCD ---
Author Organization [facility] Care Team Providers Care Technician Assistant Name Role Phone Kennedy NGUYEN, Alessio Cali Unavailable Emily Cook Unavailable Unavailable Emily Cook Unavailable Unavailable Unavailable Primary Care Provider Unavailabl e Care Physician, No Primary Primary Care Provider Unavailable Dr. Darrell Hathaway Emergency Provider [phone] Dr. Freda Nolasco Admit Provider Dr. Freda Nolasco Attending Provider [phone] Dr. Freda Nolasco Other Provider Dr. Ken Banda Other Provider Dr. Ken Banda Attending Provider Dr. Jones Gregory Other Provider Unavailable Dr. eRy Curtis Attending Provider Dr. Jones Gregory Attending Provider Unavailable Unavailable Primary Care Provider Unavailabl e Care Physician, No Primary Primary Care Provider Unavailable Dr. Ross Lou Emergency Provider [phone] Thor Daniel Admit Provider Dr. Thor Daniel Attending Provider Dr. Thor Daniel Other Provider Dr. Danny Best Attending Provider [phone] Thor Daniel Referring Provider Dr. Ken Banda Other Provider Dr. Brooks Crespo Attending Provider Dr. Brooks Crespo Other Provider Dr. Je Torres Other Provider Akshat APRON MAN, APRON MAN-C Yahaira Other Provider Dr. Freda Nolasco Other [...] Primary Care Provider Aditi Galvan MD, Gabriel Quiñones Primary Care Provider Dr. Sudhir Ochoa Primary [...] Galvan Primary Care Provider Familia, Dr. Gabriel Quiñones Referring Provider Good, Dr. Don Honeycutt Attending Provider Good, Dr. Don Honeycutt Referring Provider Bagantonio, Dr. Don Honeycutt Other Provider Dr. Je Torres Attending Provider Dr. Gabriel Galvan Primary Care Provider BACILIO Farias Attending Provider FriendDr. Cameron Attending Provider Dr. Gabriel Galvan Primary Care Provider Dr. Gabriel Galvan Referring Provider Dr. Rakesh Martinez Referring Provider FriendDr. Cameron Other Provider Mahendra APRON MAN, APRON MAN-C Nora Primary Care Provider Hortensiav Dr. Gabriel Keen Primary Care Provider Dr. Gabriel Galvan Referring Provider Dr. Rakesh Martinez Attending Provider FriendDr. Cameron Referring Provider Friend, Dr. Rakesh Other Provider Mahendra APRON MAN, APRON MAN-C Nora Primary Care Provider Unav ailable Mahendra APRON MAN, APRON MAN-C Nora Referring Provider Unavail able Gavin APRON MAN, APRON MAN-C Marsha Attending Provider Gavin APRON MAN, APRON MAN-C Marsha Referring Provider Gavin APRON MAN, APRON MAN-C Marsha Other Provider Dr. Ken Banda Attending Provider Dr. Gabriel Galvan Primary Care Provider Dr. Gabriel Galvan Referring Provider Dr. Rakesh Martinez Attending Provider [phone] Dr. Rakesh Martinez Referring Provider [phone] Dr. Rakesh Martinez Other Provider [phone] Mahendra APRON MAN, APRON MAN-C Nora Primary Care Provider Unav ailable Mahendra APRON MAN, APRON MAN-C Nora Referring Provider Unavail able Gavin APRON MAN, APRON MAN-C aMrsha Attending Provider Gavin APRON MAN, APRON MAN-C Marsha Referring Provider Gavin APRON MAN, APRON MAN-C Marsha Other Provider [phone] Dr. Ken Banda Attending Provider Dr. Jose D Villanueva Attending Provider Dr. Rakesh Martinez Attending Provider [phone] Dr. Gabriel Galvan Primary Care Provider Dr. Gabriel Galvan Referring Provider Dr. Gabriel Galvan Primary Care Provider Dr. Gabriel Galvan Referring Provider Dr. Rakesh Martinez Attending Provider [phone] Mahendra APRON MAN, APRON MAN-C Nora Primary Care Provider Unav ailable Mahendra APRON MAN, APRON MAN-C Nora Referring Provider Unavail able Dr. Rakesh Martinez Other Provider [phone] PHYSICIAN, NOT RECORDED Primary Care Physician U navailable PHYSICIAN, NOT RECORDED Primary Care Unavaila ble RIDER DO, DR MERLINE Abraham Attending Unavailable EMPERATRIZ MARTINEZ, CHUCKY Hanson Primary Care Physician [phone] Friend, Dr. Cameron Attending Provider Gabriel Galvan MD Primary Care Provider EMPERATRIZ MARTINEZ, CHUCKY Hanson Primary Care Unavailable AMPARO LARRY, DR MERLINE Abraham Attending Unavailable EMPERATRIZ MARTINEZ, CHUCKY Hanson Primary Care Unavailable TALAMPNEDRA, GABRIEL D Primary Care Unavailable NERY NAIR Admitting Unavailable ABUTEERBIRDIE Attending Unavailable ZARIA PAYTON Consulting Unavailable LO WHITE Attending UnavailGERARD Larsen Referring Unavailable TALAMPAS, GABRIEL D Primary Care Unavailable RUDY, DARRELL P Referring Unavailable TALAMPAS, GABRIEL D Primary Care Unavailable RUDY, DARRELL P Referring Unavailable TALAMPAS, GABRIEL D Primary Care Unavailable PAIGE WINN E Admitting Unavailable PAIGE WINN Attending Unavailable MERLINE CHRISTENSEN Referring Unavailable TALAMPAS, GABRIEL D Primary Care Unavailable THUESTAD, ABILIO A Consulting Unavailable Acevedo LEAD GENERATION SPECIALIST.CYCLE CONSULTANT, Lydnsey Unavailable Mahendra LEAD GENERATION SPECIALIST.PILOT CAPTAIN, Nora Unavailable Bentley NGUYEN, Bimal Unavailable Mahendra LEAD GENERATION SPECIALIST.PILOT CAPTAIN, Nora Unavailable Mahendra LEAD GENERATION SPECIALIST.PILOT CAPTAIN, Nora Unavailable Familia MARTINEZ, Dr. Gabriel Quiñones Primary Care Provider [phone] Dr. Keisha Williamson DO Emergency Provider Julius MARTINEZ, Dr. Castro Admit Provider Julius MARTINEZ, Dr. Castro Other Provider Bri MARTINEZ, Dr. Goldman Attending Provider Unavaila car Gregory MD, Dr. Goldman Other Provider Unavailable Familia MARTINEZ, Dr. Gabriel Quiñones Referring Provider Ever MARTINEZ, Dr. Le Attending Provider Modesta MARTINEZ, Dr. Barriga Attending Provider Modesta MARTINEZ, Dr. Barriga Emergency Provider Hailey MARTINEZ, Waqas Emergency Provider Hailey MARTINEZ, [place] Attending Provider Eric MARTINEZ, Dr. Alejandro Emergency Provider Familia MARTINEZ, Dr. Gabriel Quiñones Primary Care Provider Clay LARRY, Dr. Valdes Emergency Provider Julius MARTINEZ, Dr. Castro Admit Provider Julius MARTINEZ, Dr. Castro Other Provider Bri MARTINEZ, Dr. Goldman Attending Provider Unavaila ble Bri MARTINEZ, Dr. Goldman Other Provider Unavailable Familia MARTINEZ, Dr. Gabriel Quiñones Referring Provider Ever MARTINEZ, Dr. Le Attending Provider Modesta MARTINEZ, Dr. Barriga Attending Provider Modesta MARTINEZ, Dr. Barriga Emergency Provider Hailey MARTINEZ, Waqas Attending Provider Hailey MARTINEZ, [place] Emergency Provider Eric MARTINEZ, Dr. Alejandro Attending Provider Eric MARTINEZ, Dr. Alejandro Emergency Provider Michelle LARRY, Dr. Cameron Attending Provider Adriane MARTINEZ, Dr. Dickinson Attending Provider Adriane MARTINEZ, Dr. Dickinson Referring Provider Ta LEAD GENERATION SPECIALIST.CYCLE CONSULTANT, Lyndsey Unavailable Ta LEAD GENERATION SPECIALIST.CYCLE CONSULTANT, Lyndsey Unavailable Familia MARTINEZ, Dr. Gabriel Quiñones Primary Care Physician Dr. Ross Lou DO Emergency Department Physic denisse Karan MARTINEZ, Dr. Spears Admitting Physician Karan MARTINEZ, Dr. Spears Nurse Practitioner Ever MARTINEZ, Dr. Le Nurse Practitioner Renetta MARTINEZ, Dr. Jorgito Morris Attending Physician Karan MARTINEZ, Dr. Spears Attending Physician Ever MARTINEZ, Dr. Le Attending Physician Renetta MARTINEZ, Dr. Jorgito Morris Nurse Practitioner Rey Curtis Attending Unavailable Ever, [place] Consulting Unavailable Talampas, Gabriel D Primary Care Unavailable Karan, Regan Admitting Unavailable Karan, Regan Consulting Unavailable Jorgito Jackson Consulting Unavailable Jorgito Jackson Attending Unavailable Talampas, Gabriel D Primary Care Unavailable Jones Gregory Attending Unavailable Gloria Madrid Consulting Unavailable Gloria Madrid Admitting Unavailable Jones Gregory Consulting Unavailable Talampas, Gabriel D Primary Care Unavailable Waqas Hart Attending Unavailable Ever, [place] Consulting Unavailable Talampas, Gabriel D Primary Care Unavailable Jorgito Jackson Attending Unavailable Karan, Regan Admitting Unavailable Karan, Regan Consulting Unavailable Talampas, Gabriel D Primary Care Unavailable Linus Byers Attending Unavailable Talampas, Gabriel D Primary Care Unavailable ReWaqas walker Attending Unavailable Talampas, Gabriel D Primary Care Unavailable Javon Reyes Attending Unavailable Talampas, Gabriel D Primary Care Unavailable Gonsalo Melendez Attending Unavailable Ever, [place] Attending Unavailable Talampas, Gabriel D Primary Care Unavailable Talampas, Gabriel D Referring Unavailable Talampas, Gabriel D Primary Care Unavailable Marsha Alonso NP Attending Unavailable Ever, [place] Attending Unavailable Talampas, Gabriel D Primary Care Unavailable Karan, Regan Attending Unavailable Ever, [place] Attending Unavailable Talampas, Gabriel D Referring Unavailable Talampas, Gabriel D Primary Care Unavailable Rakesh Martinez Attending Unavailable Talampas, Gabriel D Referring Unavailable Talampas, Gabriel D Primary Care Unavailable Talampas, Gabriel D Primary Care Unavailable Linus Byers Attending Unavailable Talampas, Gabriel D Primary Care Unavailable Alok Forrest Attending Unavailable Alok Forrest Referring Unavailable Talampas, Gabriel D Primary Care Unavailable Jones Gregory Attending Unavailable Gloria Madrid Admitting Unavailable Gloria Madrid Consulting Unavailable Gloria Madrid Attending Unavailable TALAMPAS, GABRIEL D Primary Care Unavailable TALAMPAS, GABRIEL D Attending Unavailable TALAMPAS, GABRIEL D Primary Care Unavailable ACEVEDOLYNDSEY Attending Unavailable TALAMPAS, GABRIEL D Primary Care Unavailable RAJIV MUNOZ Referring Unavailable TALAMPAS, GABRIEL D Primary Care Unavailable RAJIV MUNOZ Attending Unavailable TALAMPAS, GABRIEL D Primary Care Unavailable NORA CRESPO Referring Unavailable TALAMPAS, GABRIEL D Primary Care Unavailable NORA CRESPO Attending Unavailable TALAMPAS, GABRIEL D Primary Care Unavailable TALAMPAS, GABRIEL D Primary Care Unavailable GRACE CHAUDHARY Attending Unavailable ACEVEDO, LYNDSEY Attending Unavailable TALAMPAS, GABRIEL D Primary Care Unavailable TALAMPAS, GABRIEL D Primary Care Unavailable TALAMPAS, GABRIEL D Referring Unavailable Allergies Allergy Classification Reported Allergen(s) Allergy Type Date of Onset Reaction(s) Facility Iodine (and Iodine containting drugs) (2 sources) Iodine Drug Allergy [address] [facility] (6 sources) morphine; Translations: [MORPHINE] allergy to substance 2 anaphylaxis [facility] Work Phone: (3 sources) NKDA drug allergy 7 [facility] Work Phone: (1 source) Contrast media; Translations: [iodinated radiocontrast agents] Drug allergy Difficulty breathing (finding), Dyspnea (finding), Anaphylaxis (disorder) [place] (20 sources) Iodine; Translations: [IODINE] Drug Allergy [address] [facility] (6 sources) Triiodobenzoic Acids Allergy to substance 5 SOB [facility] Comment on above: 1 YEAR AGO REACTION WHILE AT [facility] (1 source) Iodinated Contrast Media Drug allergy (disorder) 5 [facility] Repository Medications Current Medications Medication Drug [...] sources) Opioid Agonist Start: 09-28-2024 Start: 09-28-2024 Start: 06-17-2023 End: 07-29-2023 Hydrocodone-Acetaminophen 5- 325 mg tablet Discontinued 1 {tbl} PO THREE TIMES A DAY as needed for pain June 17, 2023 12:00am July 29, 2023 9:11pm Start: 06-17-2023 End: 07-29-2023 Start: 06-17-2023 End: 07-29-2023 take 1 tablet [...] every six hours as needed HYDROcodone-Acetaminophen (NORCO) 7.5-325 mg per tablet Take [...] 12/09/2023 12/14/2023 Active Start: 07-29-2023 End: 09-05-2023 Oxycodone-Acetaminophen (Per cocet) 5-325 mg tablet Discontinued 1 {tbl} PO Q8H as needed for pain 10 2 0 July 29, 2023 September 05, 2023 8:55pm Abdominal pain Unspecified abdominal pain Start: 07-29-2023 End: 09-05-2023 Start: 07-29-2023 End: 09-05-2023 Start: 07-26-2021 End: [...] PERCOCET 5-325 MG TABS One tablet by rowena th three times daily OXYCODONE-ACETAMINOPHEN [id number] Danny Best MD Start: 07-12-2015 End: 07-13-2015 Oxycodone-Acetaminophen 1 TA BLET tablet Discontinued 1 {tbl} PO THREE TIMES A DAY July 12, 2015 1:00am July 13, 2015 6:27pm Start: 07-12-2015 End: 07-13-2015 Start: 07-12-2015 End: 07-13-2015 take 1 tablet by mouth three times daily Oxycodone-Acetaminophen Discontinued 1 TABLET PO THREE TIMES A DAY July 12, 2015 1:00am July 13, 2015 6:27pm Start: 07-12-2015 End: 07-13-2015 Start: 06-21-2012 PERCOCET 5-325 MG TABS As needed OXYCODONE-ACETAMINOPHEN [id number] Danny Best MD Start: 06-21-2012 End: 04-20-2013 PERCOCET 5-325 MG TABS As ne eded OXYCODONE-ACETAMINOPHEN [id number] Danny Best MD Comment on above: Take [...] ipratropium-albuterol (DUONEB) nebulizer solution 1 ampule Albuterol-Budesonide (4 sources) Start: 09-28-2024 Albuterol-Budesonide (Airsupra) 90-80 mcg/actuation [...] in a 24 hour period. 1 each 5 03/28/2025 Active Start: 09-14-2024 End: 03-28-2025 albuterol-budesonide HFA (AI RSUPRA) 90-80 mcg/actuation inhaler Inhale 2 Puffs as instructed every 2 hours as needed for wheezing/shortness of breath. Do not take more than 12 inhalations in a 24 hour period. 1 Each 5 09/14/2024 03/28/2025 Discontinued Start: 09-14-2024 albuterol-bude sonide HFA (AIRSUPRA) 90-80 mcg/actuation inhaler Inhale 2 Puffs as instructed every 2 hours as needed for wheezing/shortness of breath. Do not take more than 12 inhalations in a 24 hour period. 1 Each 5 09/14/2024 Active Start: 05-24-2024 End: 09-14-2024 albuterol-budesonide [...] 12/08/2023 01/07/2024 Active Start: 07-21-2018 End: 09-23-2022 take 1 tablet by mouth once daily Aspirin 81 MG tablet Discontinued 81 mg PO DAILY July 21, 2018 1:00am August 05, 2022 5:53pm [facility] Start: 10-22-2015 aspirin 81 mg oral tablet (chewable) Dose : 81 mg = 1 tab(s), Oral, qDay, # 30 tab(s), 0 Refill(s) Start Date: 10/22/15 Status: Ordered Start: 06-21-2012 take 1 tablet by rowena th once daily ASPIRIN 81 MG TABS One tablet by mouth daily ASPIRIN [id number] Danny Best MD Comment on above: Take 81 mg by mouth once daily. Take 1 tablet by rowena th once daily. bisacodyl 5 mg delayed release oral tablet (20 sources) Stimulant Laxative Start: 09-14-2024 End: 03-28-2025 take 1 tablet by mouth once daily as needed for constipation End: 09-14-2024 take 10 mg rectal route once daily as needed for constipation bisacodyl (DULCOLAX) 10 mg supp 10 mg by RECTAL route once daily as needed for constipation. 09/14/2024 Discontinued Comment on above: 10 mg by RECTAL rout e once daily as needed for constipation. Budesonide-Formoterol (20 sources) Corticosteroid, beta2-Adrenergic Agonist Start: 09-30-2024 Start: 09-30-2024 Start: 09-30-2024 Budesonide-For moterol (Symbicort) 160-4.5 mcg/actuation HFA aerosol inhaler Active 1 NMA INHALATION TWICE A DAY 10.2 September 30, 2024 9:31am Start: 02-17-2023 End: 09-30-2024 Budesonide-Formoterol (Symbi william) 160-4.5 mcg/actuation HFA aerosol inhaler Discontinued 1 NMA INHALATION TWICE A DAY 10.2 11 February 17, 2023 12:00am September 30, 2024 9:31am Start: 02-17-2023 End: [...] (20 sources) alpha-Adrenergic Cora, beta-Adrenergic Cora Start: 10-04-2024 take 1 tablet by mouth twice daily at mealtime Start: 07-07-2024 End: 10-04-2024 take 1 tablet by mouth twice daily at mealtime Carvedilol (Coreg) 12.5 mg tablet Discontinued 12.5 mg PO TWICE A DAY 60 0 July 07, 2024 12:00am October 04, 2024 11:17am must administer with a meal/food Start: 07-29-2023 End: 09-28-2024 take 1 tablet by mouth every twelve hours Carvedilol 6.25 mg tablet Discontinued 6.25 mg PO Q12H July 29, 2023 1:00am September 28, 2024 4:54pm Start: 01-20-2022 End: 07-16-2023 Start: 09-02-2021 End: 01-20-2022 take 1 tablet by mouth twice daily at mealtime Carvedilol (Coreg) 3.125 mg tablet Discontinued 3.125 mg PO TWICE A DAY 60 0 September 02, 2021 1:00am January 20, 2022 2:11pm must administer with a meal/food Start: 12-30-2017 End: 07-29-2023 take 1 tablet by mouth twice daily at mealtime Carvedilol 12.5 mg tablet Discontinued 12.5 mg PO TWICE A DAY 180 3 July 02, 2020 6:43pm September 02, 2021 3:12pm give with food (meal/snack) Start: 11-16-2017 End: 12-30-2017 Start: 04-13-2017 End: [...] take 1 tablet by mouth twice daily Carvedilol 6.25 mg tablet Discontinued 6.25 mg PO TWICE A DAY 60 December 05, 2022 1:56pm January 04, 2023 1:39pm Start: 04-20-2013 End: 11-16-2017 take 1 tablet by mouth twice daily Carvedilol 3.125 MG tablet Discontinued 3.125 mg PO TWICE A DAY 60 November 19, 2015 12:00am April 13, 2017 4:52pm Start: 06-21-2012 take 1 tablet by rowena twice daily CARVEDILOL 12.5 MG TABS One tablet by mouth twice daily CARVEDILOL [id number] Danny Best MD Comment on above: Take 1 tablet by rowena twice daily. Per Dr. Best TWICE A [...] capsule (20 sources) Vitamin D Start: 2024 take 1 capsule by mouth once daily Start: 04-27-2023 End: 03-28-2025 take 1 capsule by mouth once daily Cholecalciferol, Vitamin D3, 125 mcg (5,000 unit) cap Take 1 capsule by mouth once daily. 90 capsule 3 03/28/2025 Active Comment on above: Take 1 capsule by mo [facility] once daily. 1 ml dexamethasone phosphate 10 mg/ml injection (20 sources) Corticosteroid Start: 06-16-2021 End: 06-26-2021 6 mg, IntraVENous, EVERY 24 HOURS, First dose on 06/16/21 at 2000, For 10 doses Start: 06-15-2021 End: 06-15-2021 dexamethasone (PF) (DECADRON ) injection 10 mg Start: 06-15-2021 End: 06-25-2021 take 6 mg by mouth once daily 6 mg, Oral, DAILY, First dose on 06/15/21 at 0900, For 10 doses Start: 06-15-2021 End: 01-01-2022 take 1 tablet by mouth once daily Dexamethasone 6 MG tablet Discontinued 6 mg PO DAILY 6 0 June 15, 2021 12:00am January 01, 2022 4:03am Start: 06-14-2021 End: 06-14-2021 dexamethasone (PF) (DECADRON ) injection 6 mg dextromethorphan hydrobromide 2 mg/ml / guaiFENesin 20 mg/ml oral suspension (2 sources) Uncompetitive V-pppmrw-W-aspartate Receptor Antagonist, Sigma-1 Agonist Start: 06-16-2021 take [...] Discontinued docusate sodium 50 mg / sennosides, [facility] 8.6 mg oral tablet (20 sources) Start: [...] on above: Take 1 capsule by mo [facility] once daily. Take by mouth. empagliflozin 10 mg oral tablet (4 sources) Sodium-Glucose Cotransporter 2 Inhibitor Start: 05-29-2025 take 1 tablet by mouth once daily Start: 05-29-2025 take 1 tablet by mouth once da grabiel 0.3 ml enoxaparin sodium 100 mg/ml prefilled [...] oral tablet (20 sources) Loop Diuretic Start: 10-04-2024 [facility] Start: 07-29-2023 End: 10-04-2024 take 1 tablet by mouth every twelve hours Furosemide 20 mg tablet Discontinued 20 mg PO Q12H July 29, 2023 1:00am October 04, 2024 11:17am Start: 07-16-2023 End: 07-29-2023 take 1 tablet by mouth once daily Furosemide 40 mg tablet Discontinued 40 mg PO DAILY 30 July 16, 2023 2:39pm July 29, 2023 8:55pm Start: 01-20-2022 End: 03-28-2025 take 1 tablet by mouth twice daily Furosemide 20 mg tablet Discontinued 20 mg PO TWICE DAILY 180 3 June 04, 2022 9:34am January 04, 2023 1:39pm Start: 01-20-2022 End: 07-16-2023 Comment on above: Take 20 mg by mouth twice daily. gabapentin 400 mg oral capsule (20 sources) Anti-epileptic Agent Start: 07-29-2023 take 1 capsule by mouth every six hours Start: 07-29-2023 End: 03-23-2026 take 1 capsule by mouth twice daily gabapentin (NEURONTIN) 400 mg capsule Indications: Neuropathy Take 1 capsule by mouth two times a day for 360 days. 180 capsule 3 03/28/2025 03/23/2026 Active Start: 07-29-2023 take 400 mg by mouth every eight hours Gabapentin Active 400 MG PO Q8H July 29, 2023 1:00am Start: 04-15-2023 End: 01-03-2025 take 1 capsule by mouth three times daily gabapentin (NEURONTIN) 400 mg capsule Indications: Neuropathy Take 1 capsule by mouth three times a day for 180 days. 90 capsule 5 05/24/2024 01/03/2025 Discontinued Start: 06-05-2020 End: 07-29-2023 Gabapentin 300 mg capsule Discontinued 400 mg PO TWICE A DAY July 16, 2023 2:28pm July 29, 2023 8:53pm nerve pain Start: 06-05-2020 End: 07-29-2023 take 400 mg by mouth twice daily Gabapentin Discontinued 400 MG PO TWICE A DAY July 16, 2023 2:28pm July 29, 2023 8:53pm Start: 06-05-2020 End: 07-29-2023 Start: 08-08-2019 End: 07-16-2023 take 1 capsule by mouth three times daily Gabapentin 300 MG capsule Discontinued 300 mg PO THREE TIMES A DAY 90 0 January 01, 2022 4:04am July 16, 2023 2:29pm nerve pain Comment on above: Take 1 capsule by mo [facility] three times daily for 90 days. Inhalational Spacing Device (Aerochamber Mv) spacer (19 sources) Start: 02-17-2023 Inhalational Spacing Device (Aerochamber Mv) spacer Active 0 .ROUTE .MEDSUPPLY 1 February 17, 2023 12:00am inhaler As directed Start: 02-17-2023 Inhalational S pacing Device (Aerochamber Mv) spacer Active 0 .ROUTE .MEDSUPPLY 1 February 16, 2023 11:00pm As directed Start: 06-13-2023 Inhalational S pacing Device (Aerochamber Mv) spacer Active 0 .ROUTE .MEDSUPPLY 1 February 17, 2023 12:00am As directed iv [...] mL 5 03/28/2025 Active lactobacillus rhamnosus gg [id number] unt oral capsule (1 source) Start: 06-08-2020 [...] MG PO DAILY January 26, 2022 7:45pm LORazepam 1 mg oral tablet (20 sources) Benzodiazepine Start: 07-16-2023 End: 06-26-2025 take 1 tablet by mouth three times daily as needed for anxiety Start: 07-16-2023 take 1 tablet by rowena [...] 08/21/2016 12/13/2023 Discontinued Start: 01-31-2016 End: 11-16-2017 take 2 tablets by mouth twice daily Lorazepam 0.5 MG tablet Discontinued 1 mg PO TWICE A DAY January 31, 2016 12:00am November 16, 2017 11:01am Start: 01-31-2016 End: 11-16-2017 take 1 mg by mouth twice daily Lorazepam Discontinued 1 MG PO TWICE A DAY January 31, 2016 12:00am November 16, 2017 11:01am Start: 06-21-2012 End: 11-19-2015 take 1 tablet by mouth three times daily as needed for anxiety Lorazepam 1 MG tablet Discontinued 1 mg PO 3 TIMES DAILY NEEDED as needed for Anxiety November 18, 2015 1:00am November 19, 2015 5:12pm Start: 06-21-2012 End: 11-19-2015 Start: 06-21-2012 take 1 tablet by rowena th three times daily as needed LORAZEPAM 2 MG TABS One tablet by mouth three times daily as needed LORAZEPAM [id number] Danny Best MD Comment on above: Take 1 tablet by rowena th every 6 hours as needed. Per counseling center Take 1 mg by mouth t hree times a day. Take 1 mg by mouth e very 6 hours as needed for anxiety. magnesium hydroxide 80 mg/ml oral suspension (20 sources) Start: 05-24-20 End: 03-28-20 take 30 mL by mouth once daily as needed for constipation magnesium hydroxide (MILK OF MAGNESIA) 400 mg/5 mL suspension Take 30 mL by mouth once daily as needed for constipation. 118 mL 3 03/28/2025 Active Comment on above: Take 30 mL by mouth once daily as needed for constipation. meclizine hydrochloride 25 mg oral tablet (3 sources) Antiemetic Start: 01-02-20 22 take 25 mg by mouth every eight [...] by mouth every 12 hours MORPHINE SULFATE [id number] Delilah Severino RN Comment on above: Take [...] INHALATION ONCE as needed for nicotine cravings 168 8 February 17, 2023 7:35pm March 04, 2023 11:06am 1 cartridge every 4-8 hours inhaled as needed, substitute for cigarettes. Start: 02-17-2023 End: 02-17-2023 take 10 mg by inhalation once as needed Nicotine (Nicotrol) 10 mg cartridge Discontinued 1 NMA INHALATION ONCE as needed for nicotine cravings 168 8 February 17, 2023 12:00am February 17, 2023 7:36pm Start: 02-17-2023 End: 03-04-2023 Start: 02-17-2023 End: 03-04-2023 Nicotine (Nicotrol) 10 mg cartridge Discontinued 1 INH INHALATION ONCE 168 February 17, 2023 7:35pm March 04, 2023 [...] daily Nicotine Active 1 SPRAY INTRANASAL DAILY September 19, 2022 1:00am administer into each nostril Start: 09-19-2022 Start: 09-17-2022 End: 09-19-2022 Nicotine 10 mg cartridge Discontinued 1 NMA INHALATION 4 to 8 times per day as needed for nicotine cravings 168 4 September 17, 2022 1:00am September 19, 2022 5:23pm Start: 09-17-2022 End: 09-19-2022 Start: 09-17-2022 End: 09-19-2022 Comment on above: [...] 04/11/2025 Active nitroglycerin 0.4 mg sublingual tablet (15 sources) Nitrate Vasodilator Start: 07-29-20 Start: 07-29-2023 Start: 07-29-2023 Nitroglycerin Active 0.4 MG BUCCAL [...] take 1 capsule by mouth once daily Start: 02-17-2023 take 40 mg by mouth [...] a day Start Date: 04/07/19 Status: Ordered perflutren lipid microspheres (DEFINITY) injection 1.65 mg (1 source) Start: 06-16-2021 End: 06-19-2021 1.65 mg (1.5 mL), IntraVENous, IMG ONCE PRN, Other, Suboptimal Echo Image, Starting on Thu06/16/21 at 0303, For 72 hours Administer up to 1.65 mg via slow IVP for suboptimal echocardiogram enhancement. Ma y administer as concentrated dose or diluted in 8.5 mL of 0.9% sodium chloride for a total volume of 10 mL. May administer as divided doses to reach optimal image enhancement. polyethylene glycol 3350 51928 mg powder for oral solution (20 sources) Osmotic Laxative Start: 09-28-2024 take 17 g by mouth twice daily Start: 09-14-2024 End: 03-28-2025 polyethylene glycol 3350 (UT RALAX) 17 gram/dose powder Take 17 g by mouth once daily. Dissolve dose in 4 - 8 ounces of liquid and take as directed. 510 g 5 09/14/2024 03/28/2025 Discontinued Start: 06-16-2021 17 g, Oral, DA GRABIEL PRN, Constipation, Starting on Thu06/16/21 at 0302 First line therapy for constipation Start: 06-14-2021 17 g, Oral, DA GRABIEL PRN, Constipation, Starting on Thu06/14/21 at 1552 [...] furosemide. 450 mL 04/17/2025 Active Start: 01-13-2025 take 1 tablet by rowena th once daily Start: 09-28-2024 End: 10-04-2024 take 1 tablet by mouth once daily Potassium Chloride 20 mEq tablet,ER particles/crystals Discontinued 20 meq PO DAILY September 28, 2024 1:00am October 04, 2024 11:15am Start: 09-14-2024 End: 09-14-2024 take 1 tablet [...] tablet 05/22/2025 Active Start: 09-30-2024 End: 12-30-2024 take 2 tablets by mouth once daily Prednisone 20 mg tablet Discontinued 40 mg PO DAILY 14 7 0 December 20, 2024 12:00am December 30, 2024 7:40pm Start: 09-30-2024 End: 12-30-2024 take 1 tablet by mouth twice daily Prednisone 20 mg tablet Discontinued 20 mg PO TWICE A DAY 10 September 30, 2024 1:00am December 30, 2024 7:40pm Start: 08-21-2024 End: 09-28-2024 take 2 tablets by mouth once daily Prednisone 20 mg tablet Discontinued 40 mg PO DAILY 10 5 0 August 21, 2024 1:00am September 28, 2024 4:59pm Start: 01-04-2023 take 40 mg by mouth [...] Start: 04-07-2019 take 1 tablet by rowena twice daily at mealtime Deltasone 20mg tab (TAPER) take 1 tablet by mouth twice a day with food Start Date: 04/07/19 Status: Ordered Comment on above: Take 4 tabs daily fo r 3 days, then 2 tabs daily for 3 days, then 1 tab daily for 3 days with food. promethazine hydrochloride 2 5 mg oral tablet (20 sources) Phenothiazine Start: 09-14-2024 End: 03-28-2025 Start: 06-04-2022 End: 08-05-2022 take 1 tablet by mouth three times daily as needed for nausea and vomiting Promethazine 25 mg tablet Discontinued 25 mg PO THREE TIMES A DAY as needed for nausea and vomiting June 09, 2022 12:00am August 05, 2022 4:31pm Start: 04-07-2019 End: 08-05-2022 take 1 tablet by mouth every six hours as needed for nausea and vomiting Promethazine 25 mg tablet Discontinued 25 mg PO EVERY 6 HOURS as needed for nausea and vomiting June 04, 2022 12:00am August 05, 2022 4:30pm Start: 12-19-2011 End: 04-20-2013 take 1 tablet by mouth three times daily as needed for nausea PROMETHAZINE HCL 25 MG TABS One tablet by mouth three times daily as needed nausea PROMETHAZINE HCL [id number] Danny Best MD rivaroxaban 20 mg oral tablet (20 sources) Factor Xa Inhibitor Start: 05-29-2025 take 1 tablet by mouth at dinner Start: 05-29-2025 take 1 tablet by rowena th at dinner Start: 08-05-2022 End: 07-23-2023 take 1 tablet by mouth once daily at dinner Rivaroxaban (Xarelto) 20 mg tablet Discontinued 0 .ROUTE .COMPLEX 30 0 September 17, 2022 8:22am January 04, 2023 1:39pm TAKE 1 TABLET BY MOUTH DAILY WITH EVENING MEAL Comment on above: Take by mouth. Take 1 tablet by rowena th once daily. sacubitril 24 mg / valsartan 26 mg oral tablet (4 sources) Angiotensin 2 Receptor Cora Start: 05-29-2025 Start: 05-29-2025 sertraline 50 mg oral tablet (5 sources) Serotonin Reuptake Inhibitor Start: 01-13-2025 take 1 tablet by mouth once daily 3 ml sodium chloride 9 mg/ml injection [...] mL, IntraVENous, PRN, L ine Care, Per Social Services Designee Request, Starting on 06/16/21 at 0303, For 72 hours May use order for Line Care after every IV line use and Agitated Saline Bubble Study. Administration for Bubble Study per tube worker request for only. Remove 1 mL 0.9% [...] take 1 tablet by mouth once daily sucralfate 100 mg/ml oral suspension (20 sources) Aluminum Complex Start: 09-14-2024 End: 03-28-2025 take 10 mL by mouth four times daily at bedtime sucralfate (CARAFATE) 100 mg/mL suspension Indications: Epigastric pain Take 10 mL by mouth four times daily. (take prior to meals and at bedtime) 1200 mL 03/28/2025 Active Start: 07-28-2023 End: 07-29-2023 take 8 tablets by mouth once Sucralfate 1 gram tablet Discontinued 1 g PO .q8 90 28 3 July 28, 2023 1:00am July 29, 2023 9:12pm Start: 01-13-2023 take 1 mL by mouth twice daily Sucralfate (Carafate) 100 mg/mL suspension Active 10 ML PO TWICE A DAY 400 January 13, 2023 12:00am Start: 08-30-2022 End: 03-04-2023 take 1 mL by mouth every six hours Sucralfate (Carafate) 100 mg/mL suspension Discontinued 10 mL PO EVERY 6 HOURS 1000 30 0 January 04, 2023 1:38pm March 04, 2023 11:07am x 2 weeks Start: 08-30-2022 End: 03-04-2023 Start: 08-28-2022 End: 09-14-2024 take 1 tablet by mouth every eight hours Start: 01-02-2017 take 1 tablet by rowena th twice daily SUCRALFATE 1 GM TABS One tablet by mouth twice daily SUCRALFATE [id number] Danny Best MD Start: 11-23-2015 End: 12-20-2015 take 1 tablet by mouth four times daily Sucralfate 1 GM tablet Discontinued 1 g PO 4 TIMES DAILY 120 0 November 23, 2015 12:00am December 20, 2015 6:27pm Start: 11-23-2015 End: 12-20-2015 Comment on above: Take 1 tablet by rowena th before meals and at bedtime. 24 hr venlafaxine 150 mg extended release oral capsule (20 sources) Serotonin and Norepinephrine Reuptake Inhibitor Start: 2 take 150 mg by mouth once daily Venlafaxine Active 150 MG PO DAILY January 17, 2022 12:45am Start: 06-05-2020 take 150 mg by mouth once hilario y Venlafaxine Active 150 MG PO DAILY June 05, 2020 4:18pm Start: 06-17-2017 End: 11-16-2017 Venlafaxine 100 MG tablet Discontinued 150 mg PO DAILY June 17, 2017 12:00am November 16, 2017 10:59am Start: 06-17-2017 End: 11-16-2017 take 150 mg by mouth once daily Venlafaxine Discontinu ed 150 MG PO DAILY June 17, 2017 12:00am November 16, 2017 10:59am Start: 08-21-2016 take 1 tablet by mouth once ve nlafaxine (EFFEXOR) 37.5 mg tablet Indications: Anxiety Take 1 tablet by mouth once daily. Per counseling center 0 08/21/2016 Active Comment on above: Take 1 tablet by rowena once daily. Per counseling center Completed/Discontinued Medications Medication Drug Class(es) Dates Sig (Normalized) Sig (Original) 4 ml adenosine 3 mg/ml injection (2 sources) Adenosine Receptor Agonist Start: 06-15-2021 End: 06-15-2021 adenosine (ADENOCARD) 12 MG/4ML injection Start: 06-15-2021 End: 06-15-2021 adenosine (ADENOCARD) inject ion 6 mg [id number] 200 actuat albuterol 0.09 mg/actuat metered dose inhaler (20 sources) beta2-Adrenergic Agonist Start: 09-05-2023 End: 12-30-2024 Albuterol Sulfate 2.5 mg /3 mL (0.083 %) solution for nebulization Discontinued 2.5 mg continuous nebulization EVERY 6 HOURS as needed for shortness of breath or wheezing September 05, 2023 1:00am December 30, 2024 7:37pm Start: 09-05-2023 End: 12-30-2024 Start: 02-17-2023 End: 12-30-2024 Albuterol Sulfate 90 mcg/act uation HFA aerosol inhaler Discontinued 2 NMA INHALATION EVERY 6 HOURS as needed for shortness of breath or wheezing 8.5 September 30, 2024 9:31am December 30, 2024 7:38pm This inhaler must be used with a spacer device. Start: 02-17-2023 End: 12-30-2024 Start: 02-17-2023 take 1 puff(s) by in halation every six hours Albuterol Sulfate Active 2 PUFF INHALATION EVERY 6 HOURS 8.5 February 17, 2023 12:00am This inhaler must be [...] 2 PUFF INHALATION EVERY 4 HOURS NEEDED June 15, 2021 6:27am Start: 06-24-2017 End: [...] 4 mg/ml oral suspension (20 sources) End: 025 aluminum-magnesium hydroxide-simethico ne (MAALOX,MYLANTA,MAG -AL PLUS) 200-200-20 mg/5 mL suspension Take 30 mL by mouth as needed. 03/28/2025 Discontinued amiodarone hydrochloride 200 mg oral tablet (20 sources) Antiarrhythmic Start: 023 End: 025 take 1 tablet by mouth once daily Amiodarone 200 mg tablet Discontinued 200 mg PO DAILY July 22, 2023 1:00am October 04, 2024 11:14am Start: 01-20-2022 End: 07-16-2023 Amiodarone 200 mg tablet Discontinued 200 mg PO 180 3 June 04, 2022 9:33am January 04, 2023 1:39pm Start: 01-20-2022 End: 12-07-2023 take 1 tablet by mouth twice daily amiodarone (PACERONE) 200 mg tablet Take 200 mg by mouth twice daily. 06/04/2022 12/07/2023 Discontinued Comment on above: Take 200 mg by mouth twice daily. amLODIPine 10 mg oral tablet (6 sources) Dihydropyridine Calcium Channel Cora Start: 06-21-20 12 End: 04-20-20 13 take 1 tablet by mouth once daily AMLODIPINE BESYLATE 10 MG TABS One tablet by mouth daily AMLODIPINE BESYLATE [id number] Danny Best MD atorvastatin 40 mg oral tablet (20 sources) HMG-CoA Reductase Inhibitor Start: 09-02-20 End: 03-28-20 take 1 tablet by mouth at bedtime Atorvastatin (Lipitor) 40 mg tablet Discontinued 40 mg PO AT BEDTIME 90 3 June 04, 2022 9:34am January 04, 2023 1:39pm Start: 10-03-2016 End: 12-19-2017 take 1 tablet by mouth at bedtime Atorvastatin 10 MG tablet Discontinued 10 mg PO AT BEDTIME October 03, 2016 1:00am December 19, 2017 10:56am Cholesterol Start: 06-21-2012 End: 01-03-2016 take 1 tablet by mouth once daily LIPITOR 20 MG TABS One tablet by mouth daily (patient not taking) ATORVASTATIN CALCIUM [id number] Alessio Cook PA-C Comment on above: Take 40 mg by mouth daily at bedtime. benzonatate 100 mg oral capsule (20 sources) Non-narcotic Antitussive Start: 023 End: take 1 capsule by mouth every eight hours as needed benzonatate (TESSALON PERLES) 100 mg capsule Take 1 capsule by mouth three times a day as needed for cough. 30 capsule 5 05/24/2024 01/03/2025 Discontinued Comment on above: Take 1 capsule by [facility] three times daily as needed for cough. 168 hr buprenorphine 0.005 mg/hr transdermal system (20 sources) Partial Opioid Agonist Start: 023 End: 023 apply 5 ug transdermal route every week Buprenorphine 5 mcg/hour patch weekly Discontinued 1 NMA TD EVERY WEEK February 17, 2023 12:00am July 16, 2023 2:27pm carbamide peroxide 65 mg/ml otic solution (20 sources) Start: 023 End: 024 carbamide peroxide (DEBROX) 6.5 % otic solution Use 5 Drops in both ears twice daily. 15 mL 04/17/2023 05/30/2024 Discontinued Comment on above: Use 5 Drops in both ears twice daily. cefdinir 300 mg oral capsule (7 sources) Cephalosporin Antibacterial End: take 1 capsule by mouth twice daily cefdinir (OMNICEF) 300 mg capsule Take 300 mg by mouth two times a day. 0 04/11/2024 Discontinued cephalexin 50 mg/ml oral suspension (20 sources) Cephalosporin Antibacterial Start: End: take 500 mg by mouth every twelve hours Cephalexin 250 MG/5 ML suspension for reconstitution Discontinued 500 mg PO EVERY 12 HOURS 140 7 0 June 13, 2019 12:00am June 19, 2019 12:00am June 20, 2019 12:09am citalopram 10 mg oral tablet (20 sources) Serotonin Reuptake Inhibitor Start: End: take 1 tablet by mouth once daily Citalopram 10 MG tablet Discontinued 10 mg PO DAILY 06 10November 19, 2015 12:00am December 20, 2015 6:27pm Start: 2011 End: 12-16-2011 take 1 tablet by mouth once daily CELEXA 20 MG TABS One tablet by mouth daily CITALOPRAM HYDROBROMIDE [id number] Libby Dye MD clonazePAM 0.5 mg oral tablet (20 sources) Benzodiazepine Start: 06-05-2020 End: 06-06-2020 take 1 tablet by mouth twice daily as needed for anxiety Clonazepam 0.5 MG tablet Discontinued 0.5 mg PO TWICE A DAY as needed for Anxiety June 05, 2020 12:00am June 06, 2020 8:43am clopidogrel 75 mg oral tablet (20 sources) [id number] Platelet Inhibitor Start: 08-04-2022 End: 05-29-2025 take 1 tablet by mouth once daily Clopidogrel (Plavix) 75 mg tablet Discontinued 75 mg PO DAILY 30 0 January 04, 2023 1:38pm October 04, 2024 11:14am Comment on above: Take 1 tablet by rowena th once daily. Take 1 tablet by rowena th once daily. Patient should start on December 17, 2023. cyclobenzaprine hydrochloride 5 mg oral tablet (11 sources) Muscle Relaxant Start: 11-30-2023 End: 09-28-2024 take 1 tablet by mouth three times daily as needed for muscle spasms Cyclobenzaprine 5 mg tablet Discontinued 5 mg PO THREE TIMES A DAY as needed for muscle spasm 15 0 November 30, 2023 12:00am September 28, 2024 4:55pm Diaper,Brief, Adult,Disposable (DEPEND EASY FIT UNDERGARMENTS) misc (20 sources) Start: 09-13-2018 End: 05-30-2024 Diaper,Brief, Adult,Disposable (DEPEND EASY FIT UNDERGARMENTS) misc Indications: Urinary incontinence, unspecified type , Stress incontinence, female Size Medium pull up. Change depends once every 1-2 hrs. Dx incontinence (788.30) Prolapsed bladder (618.01) 120 Each 09/13/2018 05/30/2024 Discontinued Start: 09-13-2018 Diaper,Brief, Adult,Disposable (DEPEND EASY FIT UNDERGARMENTS) misc Indications: Urinary incontinence, unspecified type , Stress incontinence, female Size Medium pull up. Change depends once every 1-2 hrs. Dx incontinence (788.30) Prolapsed bladder (618.01) 120 Each 5 09/13/2018 Suspended Start: 09-13-2018 Diaper,Brief, Adult,Disposable (DEPEND [...] mg oral capsule (20 sources) Anticholinergic Start: 024 End: 025 take 2 capsules by mouth twice daily [...] day as needed for constipation. 60 capsule 5 05/24/2024 09/14/2024 Discontinued Comment on above: Take 1 capsule by mo ut twice daily as needed for constipation. Take 1 capsule by mo uth two times a day as needed for constipation. doxycycline hyclate 100 mg oral capsule (20 sources) Tetracycline-class Drug Start: End: take 1 capsule by mouth twice daily Doxycycline Hyclate 100 mg capsule Discontinued 100 mg PO TWICE A DAY 14 September 30, 2024 1:00am December 30, 2024 7:38pm Start: 08-26-2024 End: 09-02-2024 take 1 tablet by mouth twice daily doxycycline (VIBRA-TABS) 100 mg tablet Indications: Respiratory infection Take 1 tablet by mouth two times a day for 7 days. 14 tablet 08/26/2024 09/02/2024 Active Start: 01-04-2023 End: 01-16-2023 take 1 capsule by mouth twice daily Doxycycline Hyclate 100 mg capsule Discontinued 100 mg PO TWICE A DAY 9 4 0 January 04, 2023 12:00am January 16, 2023 12:59pm Start: 01-14-2022 End: 01-21-2022 take 1 capsule by mouth twice daily Doxycycline Monohydrate 100 mg capsule Discontinued 100 mg PO TWICE A DAY January 17, 2022 12:00am January 20, 2022 2:12pm Comment on above: Take 1 capsule by [facility] twice daily for 7 days. enteric contrast [...] Start: 04-07-2019 take 1 capsule by mo [facility] once daily in the morning esomeprazole 40 mg oral delayed release capsule take 1 capsule by mouth once daily AT 6 AM Start Date: 04/07/19 Status: Ordered Start: 01-02-2017 [facility] NEXIUM 40 MG CPDR One tablet by mouth daily ESOMEPRAZOLE MAGNESIUM [id number] Danny Best MD Start: 10-03-2016 End: 07-23-2018 take 1 capsule by mouth once daily Esomeprazole Magnesium 40 MG capsule Discontinued 40 mg PO DAILY October 03, 2016 1:00am July 23, 2018 8:59am Heart burn Start: 10-03-2016 End: 07-23-2018 Start: 2011 End: 12-16-2011 take 1 tablet by mouth once daily NEXIUM 40 MG CPDR One tablet by mouth daily ESOMEPRAZOLE MAGNESIUM [id number] Danny Best MD Comment on above: Take 1 capsule by mo [facility] twice a day. famotidine 40 mg oral [...] on above: Take 1 tablet by rowena once daily. 12 hr guaiFENesin 1200 mg extended release oral tablet (11 sources) Start: 09-30-2024 End: 12-30-2024 take 1 tablet by mouth twice daily, then take 1 tablet by mouth every twelve hours Guaifenesin (Mucus Relief Er) 1,200 mg Tablet Extended Release 12hr Discontinued 1200 mg PO TWICE A DAY 30 September 30, 2024 1:00am December 30, 2024 [...] TABS One tablet by mouth daily LISINOPRIL-HYDROCHLOROTHIAZIDE [id number] Danny Best MD Ibuprofen (5 sources) Nonsteroidal Anti-inflammat [...] by mouth once daily IMDUR 30 MG [id number] One tablet by mouth daily (pateint takes intermittently) ISOSORBIDE MONONITRATE [id number] Danny Best MD Start: 04-20-2013 End: 01-02-2017 take 1 tablet by mouth once daily IMDUR 30 MG [id number] One tablet by mouth daily (pateint takes intermittently) ISOSORBIDE MONONITRATE [id number] Danny Best MD Start: 06-21-2012 take 1 tablet by rowena once daily IMDUR 30 MG [id number] One tablet by mouth daily ISOSORBIDE MONONITRATE [id number] Danny Best MD lansoprazole 30 mg delayed release oral capsule (19 sources) Proton Pump Inhibitor Start: 07-29-2023 End: 09-05-2023 take 1 capsule by mouth every twelve hours Lansoprazole 30 mg capsule,delayed release(DR/EC) Discontinued 30 mg PO Q12H July 29, 2023 1:00am September 05, 2023 8:52pm Start: 06-17-2023 take 30 mg by mouth once daily Lansoprazole Active 30 MG PO DAILY June 16, 2023 11:00pm lidocaine hydrochloride 20 mg/ml mucous membrane topical solution (20 sources) Antiarrhythmic, Amide Local Anesthetic Start: 05-28-2023 End: 07-16-2023 Lidocaine Hcl (Lidocaine Viscous) 2 % solution Discontinued 10 mL MUCOUS MEM TWICE A DAY as needed for pain 100 May 28, 2023 12:00am July 16, 2023 2:28pm Start: 05-28-2023 End: 07-16-2023 Lidocaine Hcl (Lidocaine Vis cous) 2 % solution Discontinued 10 mL MUCOUS MEM TWICE A DAY as needed for pain May 28, 2023 12:00am July 16, 2023 [...] 10 ML MUCOUS MEM TWICE A DAY 100 May 28, 2023 12:00am Start: 07-26-2021 End: 08-25-2021 lidocaine 4 % external patch 1 patch lisinopril 5 mg oral tablet (20 sources) Angiotensin Converting Enzyme Inhibitor Start: 05-24-2024 End: 05-29-2025 take 1 tablet by mouth once daily Lisinopril 5 mg tablet Discontinued 5 mg PO DAILY September 28, 2024 1:00am May 29, 2025 10:53am blood pressure Start: 01-20-2022 End: 09-28-2024 take 1 tablet by mouth twice daily Lisinopril 2.5 mg tablet Discontinued 2.5 mg PO TWICE A DAY 180 3 June 04, 2022 9:34am January 04, 2023 1:39pm Start: 01-20-2022 End: 09-28-2024 take 1 tablet by mouth once daily Lisinopril 2.5 mg tablet Discontinued 2.5 mg PO DAILY 30 30 0 January 04, 2023 1:38pm September 28, 2024 5:03pm Start: 11-29-2019 End: 04-15-2023 take 1 tablet by mouth twice daily lisinopril (ZESTRIL, PRINIVIL) 20 mg tablet Take 1 tablet by mouth twice daily. 180 tablet 1 11/29/2019 04/15/2023 Discontinued Start: 11-18-2015 End: 01-20-2022 take 1 tablet by mouth once daily Lisinopril 10 MG tablet Discontinued 10 mg PO DAILY December 12, 2015 12:00am December 20, 2015 6:27pm Start: 11-18-2015 End: 06-08-2020 take 1 tablet by mouth twice daily Lisinopril 10 MG tablet Discontinued 10 mg PO TWICE A DAY November 18, 2015 1:00am June 08, 2020 2:03pm BP Start: 11-18-2015 End: 01-20-2022 take 1 tablet by mouth three times daily Lisinopril 10 mg tablet Discontinued 10 mg PO THREE TIMES A DAY January 01, 2022 1:56am January 20, 2022 2:12pm BP Start: 11-18-2015 End: 01-20-2022 Start: 03-16-2015 End: 03-17-2015 take 1 tablet by mouth twice daily Lisinopril 10 MG tablet Discontinued 10 mg PO TWICE A DAY March 16, 2015 12:00am March 17, 2015 1:09pm Start: 06-30-2014 End: 11-11-2014 Start: 06-21-2012 End: 11-11-2014 take 1 tablet by mouth once daily Lisinopril 20 MG tablet Discontinued 20 mg PO DAILY June 30, 2014 12:00am November 11, 2014 1:11pm Start: 06-21-2012 End: 03-17-2015 Comment on above: Take 1 tablet by rowena twice daily. DAILY Take 2.5 mg by mouth once daily. MEDICATION, NON-DATABASE (5 sources) Start: 11-07-2019 End: 09-23-2022 MEDICATION, NON-DATABASE Indications: Failure to gain weight in adult [...] tablet 5 05/24/2024 03/28/2025 Discontinued Start: 09-05-2023 take 1 capsule by mo uth at bedtime Start: 09-05-2023 Start: 09-05-2023 Start: 06-16-2021 melatonin tabl et [...] 09-23-2022 NARCAN 4 mg/actuation nasal spray nystatin [id number] unt/ml oral suspension (20 sources) Polyene Antifungal [...] 05/24/2024 03/28/2025 Discontinued Start: 01-13-2023 End: 09-28-2024 take 1 tablet by mouth every eight hours as needed for nausea Ondansetron 4 mg tablet,disintegrating Discontinued 4 mg PO EVERY 8 HOURS NEEDED as needed for Nausea July 29, 2023 1:00am September 05, 2023 8:53pm Start: 08-03-2022 End: 09-17-2022 take 1 tablet by mouth every eight hours as needed for nausea and vomiting Ondansetron 4 mg tablet,disintegrating Discontinued 4 mg PO Q8H as needed for nausea and vomiting August 23, 2022 1:00am September 17, 2022 1:50pm Start: 02-26-2022 take 4 mg by mouth e very eight hours as needed Ondansetron Active 4 MG PO EVERY 8 HOURS NEEDED February 26, 2022 12:00am Start: 11-25-2021 End: 01-01-2022 take 1 tablet by mouth once daily Ondansetron 4 mg tablet,disintegrating Discontinued 4 mg PO DAILY 10 0 November 25, 2021 12:00am January 01, 2022 4:04am Start: 11-25-2021 End: 01-01-2022 Start: 09-27-2021 End: 05-24-2024 take 1 tablet [...] th every 6 hours as needed for nausea/vomiting. oxyCODONE 18 mg 12 hr extended release oral capsule, abuse-deterrent (20 sources) Opioid Agonist Start: 09-28-19 End: 04-14-20 take 1 capsule by mouth twice daily Oxycodone Myristate (Xtampza Er) 18 mg cap,sprinkl,ER12hr(D ONT CRUSH) Discontinued 18 mg PO TWICE A DAY September 28, 2024 1:00am May 26, 2025 6:18am Start: 12-07-2023 End: 12-10-2023 take 1 tablet by mouth every eight hours as needed oxyCODONE IR (ROXICODONE) 10 mg tab Indications: Chronic back pain, unspecified back location, unspecified back pain laterality Take 1 tablet by mouth every 8 hours as needed for up to 3 days. 9 tablet 0 12/07/2023 12/10/2023 Active Start: 07-29-2023 End: 09-28-2024 Oxycodone Myristate [Oxycodo ne Myristate 9 Mg Capsule Sprinkle Extended Release 12 Hr(Don'T Crush)] (Oxycodone Myristate 9 Mg Capsule Sprinkle Extended Release ) 9 mg cap,sprinkl,ER12hr(DONT CRUSH) Discontinued 13.5 mg PO Q12H July 29, 2023 1:00am September 28, 2024 4:58pm On Hold: Ordered Start: 07-29-2023 Start: 08-16-2022 End: 08-19-2022 take 1 capsule by mouth every six hours as needed for pain Oxycodone 5 mg capsule Discontinued 5 mg PO EVERY 6 HOURS as needed for pain 12 3 0 August 16, 2022 August 18, 2022 1:00am August 19, 2022 1:04am Occlusion of right popliteal artery 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 OXYCODONE HCL/ACETAMINOPHEN (PERCOCET ORAL) (5 sources) End: [...] tablet (20 sources) Proton Pump Inhibitor Start: End: take 1 tablet by mouth every twelve hours Pantoprazole 40 mg tablet,delayed release (DR/EC) Discontinued 40 mg PO Q12H 60 3 June 24, 2023 12:00am September 28, 2024 4:59pm Start: 08-08-2022 End: 02-05-2023 take 1 tablet by mouth once daily Pantoprazole (Protonix) 40 mg tablet,delayed release (DR/EC) Discontinued 40 mg PO DAILY 30 0 August 08, 2022 1:00am January 04, 2023 1:39pm Start: 08-08-2022 End: 05-30-2024 take 1 tablet by mouth twice daily Pantoprazole (Protonix) 40 mg tablet,delayed release (DR/EC) Discontinued 40 mg PO TWICE A DAY 60 30 0 January 04, 2023 1:38pm February 17, 2023 11:12am Start: 08-08-2022 End: 02-17-2023 Comment on above: Take 1 tablet by rowena once daily. Take 1 tablet by rowena twice daily. PARoxetine hydrochloride 40 mg oral tablet (20 sources) Serotonin Reuptake Inhibitor Start: 08-04-2022 End: 12-20-2023 PARoxetine (PAXIL) 40 mg tablet 08/04/2022 12/20/2023 Discontinued Start: 06-09-2022 End: 01-04-2023 take 1 tablet by mouth once daily Paroxetine Hcl 20 mg tablet Discontinued 20 mg PO DAILY June 09, 2022 12:00am January 04, 2023 1:09pm Start: 06-21-2012 End: 12-17-2015 take 1 tablet by mouth once daily PAXIL 40 MG TABS One tablet by mouth daily PAROXETINE HCL [id number] Delilah Severino RN take 1 tablet by rowena th once daily PAXIL 20 MG TABS One tablet by mouth daily PAROXETINE HCL [id number] Libby Dye MD remdesivir 200 mg in sodium chloride 0.9 % 250 mL IVPB (1 source) Start: 06-14-2021 End: 06-14-2021 200 mg, IntraVENous, at 500 mL/hr, Administer over 30 Minutes, ONCE, On Thu06/14/21 at 1630, For 1 dose sodium phosphate, dibasic 59.3 mg/ml / sodium [...] One tablet by mouth daily TAMSULOSIN HCL [id number] Danny Best MD 60 actuat tiotropium 0.0025 mg/actuat inhalation spray (20 sources) Anticholinergic Start: 01-13-2023 End: 06-26-2025 take 2 puff(s) by inhalation once daily, then take 2 puff(s) by inhalation once daily tiotropium bromide (SPIRIVA RESPIMAT) 2.5 mcg/actuation inhaler Inhale 2 puffs as instructed once daily. Inhale two puffs once daily. 3 each 3 03/28/2025 06/26/2025 Active Start: 01-04-2023 End: 02-17-2023 take 2.5 ug by inhalation once daily Tiotropium [place] (Spiriva Respimat) 2.5 mcg/actuation mist Discontinued 2 NMA INHALATION DAILY 4 February 17, 2023 11:56am February 17, 2023 12:07pm Start: 01-04-2023 End: 02-17-2023 Start: 01-04-2023 End: 02-17-2023 take 1 puff(s) by inhalation once daily Tiotropium [place] (Spiriva Respimat) 2.5 mcg/actuation mist Discontinued 2 PUFF INHALATION DAILY February 17, 2023 11:56am February 17, 2023 12:07pm Comment on above: Inhale 2 Puffs as in structed once daily. Inhale two puffs once daily. traMADol hydrochloride 50 mg oral tablet (17 sources) Opioid Agonist Start: 07-28-20 End: 09-05-20 take 1 tablet by mouth every eight hours as needed for pain Tramadol 50 mg tablet Discontinued 50 mg PO Q8H as needed for pain 30 0 July 28, 2023 1:00am September 05, 2023 8:56pm 30 actuat umeclidinium 0.0625 mg/actuat / vilanterol 0.025 mg/actuat dry powder inhaler (20 sources) Anticholinergic, beta2-Adrenergic Agonist Start: 09-23-19 End: 04-11-20 take 1 dose by inhalation once daily umeclidinium-vilante rol (ANORO ELLIPTA) 62.5-25 mcg/actuation inhaler Indications: Chronic obstructive pulmonary disease, unspecified COPD type (HCC) Inhale 1 Inhalation as instructed once daily. 1 Each 2 09/23/2022 04/11/2024 Discontinued Comment on above: Inhale 1 Inhalation as instructed once daily. (11 sources) Start: 09-30-19 End: 12-31-19 Start: 09-28-2024 Start: 09-05-2023 Start: 05-28-2023 End: 07-16-2023 Start: 02-17-2023 Problems Active Problems Problem Classification Problem Date Documented Da te Episodic/Chronic Acute myocardial infarction (16 sources) Acute non-ST segment elevation myocardial infarction; Translations: [Non-ST elevation (NSTEMI) myocardial infarction] Onset: 5 01-02-2023 Chronic Anxiety disorders (20 sources) Anxiety disorder; Translations: [Anxiety disorder, unspecified] Onset: 4 Chronic Aortic; peripheral; and visceral artery aneurysms (20 sources) Aneurysm; Translations: [Abdominal aneurysm] Onset: 4 Chronic Asthma (20 sources) Asthma-chronic obstructive pulmonary disease overlap syndrome; Translations: [Asthma-chronic obstructive pulmonary disease overlap syndrome] 02-17-2023 Chronic Comment on above: Her PFTs suggest mod erate chronic obstructive asthma, although her FVC was likely decreased due to effort artifact. There is positive airway reactivity. - Add Symbicort 160/4.51 puff twice daily, prescription sent to her pharmacy and can be picked up by her assisted personnel, to be used with a spacer. [...] diabetes mellitus without complications] Onset: 3 Chronic Disorders of lipid metabolism (20 sources) Hyperlipidemia; Translations: [Hyperlipidemia, unspecified] Onset: 2 06-21-2012 Chronic Diverticulosis and diverticulitis (20 sources) Diverticular disease; Translations: [Diverticulosis of intestine, part unspecified, without perforation or abscess without bleeding] Onset: 5 03-20-2015 Chronic E Codes: Adverse effects of medical care (8 sources) Equipment finding; Translations: [Unspecified medical devices associated with adverse incidents] 11-13-2024 Episodic E Codes: Fall (12 sources) Fall; Translations: [Unspecified fall, initial encounter] Episodic Esophageal disorders (20 sources) Gastroesophageal reflux disease; Translations: [Gastro-esophageal reflux disease without esophagitis] Onset: 6 06-05-2014 Chronic Esophageal disorders (1 source) Esophageal disorders; Translations: [Gastroesophageal reflux disease with esophagitis without hemorrhage] Onset: 4 Essential hypertension (20 sources) Essential hypertension; Translations: [Hypertensive disorder] Onset: 2 12-16-2011 Chronic Comment on above: CONTROLLED ON MED Genitourinary symptoms and ill-defined conditions (20 sources) Female stress incontinence; Translations: [Stress incontinence (female) (male)] Onset: 4 11-21-2015 Chronic Immunizations and screening for infectious disease (1 source) Encounter for immunization; Translations: [Encounter for immunization] Onset: 5 Episodic Malaise and fatigue (20 sources) Asthenia; Translations: [Weakness] Onset: 4 09-10-2022 Episodic Menopausal disorders (20 sources) Menopausal symptom; Translations: [Menopausal and female climacteric states] Onset: 6 06-05-2014 Chronic Miscellaneous mental health disorders (1 source) Confusional state 03-28-2025 Chronic Mood disorders (20 sources) Depressive disorder; Translations: [Depression] Chronic Mycoses (1 source) Candidiasis of mouth; Translations: [Candidal stomatitis] Episodic Nonspecific chest pain (20 sources) Atypical chest pain; Translations: [Chest pain] Onset: 2 2011 Episodic Nutritional deficiencies (4 sources) Vitamin D deficiency; Translations: [Vitamin D deficiency, unspecified] Onset: 5 05-30-2024 Chronic Open wounds of extremities (20 sources) Laceration of forearm; Translations: [Laceration without foreign body of unspecified forearm, initial encounter] 02-08-2019 Episodic Other aftercare (1 source) Long-term current use of drug therapy; Translations: [Other termite treater (current) drug therapy] 09-14-2024 Episodic Other aftercare (1 source) Encounter for follow-up examination after completed treatment for conditions other than malignant neoplasm; Translations: [Hospital discharge follow-up] Onset: 5 Episodic Other and ill-defined heart disease (20 sources) Mural thrombus of left ventricle; Translations: [Intracardiac thrombosis, not elsewhere classified] Onset: 4 Resolved: 4 01-03-2023 Chronic Other and ill-defined heart disease (15 sources) Intracardiac thrombosis, not elsewhere classified; Translations: [...] foot] 09-14-2024 Episodic Other connective tissue disease (6 sources) H/O: back problem; Translations: [Personal history of other diseases of the musculoskeletal system and connective tissue] 01-10-2025 Episodic Other diseases of bladder and urethra (20 sources) Overactive bladder; Translations: [Overactive bladder] Onset: 9 02-18-2019 Chronic Other ear and sense organ disorders (20 sources) Otitis externa; Translations: [Unspecified otitis externa, right ear] 09-16-2021 Chronic Other ear and sense organ disorders (4 sources) Otitis externa of right ear; Translations: [Unspecified otitis externa, right ear] 09-16-2021 Chronic Other eye disorders (20 sources) Vitreous floaters; Translations: [Other vitreous opacities, right eye] 01-09-2022 Chronic Other eye disorders (4 sources) Vitreous floaters of right eye; Translations: [Other vitreous opacities, right eye] 01-09-2022 Chronic Other fractures (11 sources) Compression fracture of thoracic spine; Translations: [Wedge compression fracture of T5-T6 vertebra, initial encounter for closed fracture] 11-30-2023 Episodic Other fractures (1 source) Wedge compression fracture of T7-T8 vertebra, initial encounter for closed fracture; Translations: [Closed wedge compression fracture of T7 vertebra, initial encounter ([facility])] Onset: 4 Episodic Other fractures (1 source) Wedge compression fracture of unspecified thoracic vertebra, initial encounter for closed fracture; Translations: [Compression fracture of thoracic vertebra, unspecified thoracic vertebral level, initial encounter ([facility])] Onset: 4 Episodic Other gastrointestinal disorders (20 sources) Dysphagia; Translations: [Dysphagia, unspecified] 05-22-2023 Episodic [...] Translations: [Cough] Episodic Other lower respiratory disease (9 sources) Dyspnea; Translations: [Shortness of breath] Episodic Other lower respiratory disease (1 source) Chronic cough; Translations: [Chronic cough] 04-28-2023 Episodic Other lower respiratory disease (19 sources) Dyspnea on exertion; Translations: [Other forms of dyspnea] 07-16-2023 Episodic Other lower respiratory disease (16 sources) Other forms of dyspnea; Translations: [Other respiratory abnormalities] 07-16-2023 Episodic Other lower respiratory disease (4 sources) Cough; Translations: [Acute cough] 06-17-2024 Episodic Other lower respiratory disease (1 source) Respiratory tract infection; Translations: [Other specified respiratory disorders] 08-26-2024 Episodic Other lower respiratory disease (6 sources) History of chronic obstructive airway disease; [...] other specified body structures] 01-11-2024 Chronic Other screening for suspected conditions (not mental disorders or infectious disease) (20 sources) Patient encounter status; Translations: [Encounter for screening mammogram for malignant neoplasm of breast] Onset: 6 Resolved: 3 05-12-2018 Episodic Other upper respiratory disease (2 sources) [...] because of the difficulty smoking in the assisted. - I prescribed Nicotrol inhaler to be substituted for each cigarette, and to avoid smoking completely. Prescription sent to her pharmacy today, can be picked up by the assisted personnel Residual codes; unclassified (10 sources) Tobacco [...] 03-28-2025 Episodic Residual codes; unclassified (1 source) Asymptomatic menopausal state; Translations: [Asymptomatic menopause] Onset: 5 Episodic Residual codes; unclassified (1 source) Other specified health status; Translations: [Self-care deficit] Onset: 5 Episodic Respiratory failure; insufficiency; arrest (adult) (1 source) Dependence on supplemental oxygen; Translations: [Dependence on supplemental oxygen] 03-28-2025 Chronic Respiratory failure; insufficiency; arrest (adult) (20 sources) Acute respiratory failure; Translations: [Acute respiratory failure with hypoxia] Onset: 4 Resolved: 4 12-20-2023 Episodic Screening or history of mental health and substance abuse (3 sources) Tobacco dependence syndrome; Translations: [Nicotine dependence, unspecified, uncomplicated] Onset: 6 12-17-2015 Chronic Spondylosis; intervertebral disc disorders; other back problems (20 sources) Backache; Translations: [Dorsalgia, unspecified] Onset: 6 12-22-2016 Episodic Sprains and strains (11 sources) Strain of muscle of chest wall; [...] front wall of thorax, initial encounter] Episodic Syncope (20 sources) Near syncope; Translations: [Syncope and collapse] Onset: 6 Resolved: 3 08-21-2016 Episodic Thyroid disorders (20 sources) Hyperthyroidism; Translations: [Thyrotoxicosis, unspecified without thyrotoxic crisis or storm] Onset: 8 03-17-2018 Chronic Unclassified (1 source) Finding related to ability to cope with pain 10-22-2015 Unclassified (1 source) Patient encounter status 03-28-2025 Unclassified (4 sources) I21.4 - Non-ST elevation (NSTEMI) myocardial infarction,I25.10 - 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,J43.9 - Emphysema, unspecified,J44.9 - Chronic obstructive pulmonary disease, unspecified,I25.5 - Ischemic cardiomyopathy,I10 - Essential (primary) hypertension,E78.5 - Hyperlipidemia, unspecified,Z72.0 - Tobacco use Unclassified (4 sources) Appointment with Lyndsey Acevedo N.P. Unclassified (1 source) Acute cough; Translations: [Acute [...] site, initial encounter] Onset: 4 12-20-2023 Episodic Diabetes mellitus without complication (2 sources) Impaired fasting glycemia; Translations: [Impaired fasting glucose] Onset: 5 03-28-2025 Episodic Fluid and electrolyte disorders (20 sources) Dehydration; Translations: [Dehydration] Onset: 5 02-08-2019 Episodic Genitourinary symptoms and ill-defined conditions (3 sources) Blood in urine; Translations: [Hematuria, unspecified] Onset: 5 Episodic Nausea and vomiting (20 sources) Nausea; Translations: [Nausea] Onset: 4 02-03-2022 Episodic Neoplasms of unspecified nature or uncertain behavior (20 sources) Neoplasm of uncertain behavior of back; Translations: [Neoplasm of uncertain behavior of other specified sites] Onset: 7 12-22-2016 Episodic Other aftercare (4 sources) Other termite treater (current) drug therapy; Translations: [Other penitentiary (current) drug therapy] Onset: 7 01-02-2017 Episodic Other aftercare (20 sources) Drug therapy finding; Translations: [Other penitentiary (current) drug therapy] Onset: 8 Resolved: 3 04-27-2018 Episodic Other aftercare (1 source) Encounter for therapeutic drug level monitoring; Translations: [Encounter for therapeutic drug monitoring] Onset: 5 Episodic Other connective tissue disease (3 sources) [...] 8 03-17-2018 Episodic Other lower respiratory disease (7 sources) Shortness of breath; Translations: [Shortness of breath] Onset: 5 09-17-2022 Episodic Other lower respiratory disease (1 source) Hypoxemia; Translations: [Hypoxia] Onset: 5 Episodic Other nervous system disorders (20 sources) Tremor; Translations: [Tremor, unspecified] Onset: 7 06-24-2017 Episodic Other non-traumatic joint disorders (9 sources) Pain in right shoulder; Translations: [Acute pain of right shoulder] Onset: 5 08-29-2024 Episodic Other nutritional; endocrine; and metabolic disorders (3 sources) Body mass index (BMI) 29.0-29.9, adult; Translations: [Body mass index (BMI) 29.0-29.9, adult] Onset: 6 01-03-2016 Episodic Poisoning by other medications and drugs [...] unspecified] Onset: 4 Resolved: 4 12-07-2023 Episodic Residual codes; unclassified (1 source) Disorientation, unspecified; Translations: [Confusion] Onset: 5 Episodic Results Test Name Value Interpretation Reference Range Facility NURSING PROGon 07-07-2025 NURSING PROG HNO ID: [id number] Author: ZAIRA VERA RN Service: ? Author Type: Registered Nurse Type: Nursing Progress Note Filed: 07/07/2025 14:04 Note Text: GI Pre-Procedure Spoke with patient: Yes Confirmed date scheduled and patient report time: Yes Procedure Planned:Esophagogastro duodenoscopy(EGD) for control of bleeding,dilation(any means),imaging,tube placement Is the patient on blood thinners?yes Contact PCP for instructions regarding stopping anticoagulant medication pre-procedure Spoke to pt and her son they were not sure of which blood thinner as there have been changes and will contact prescribing md Procedure Instructions given to patient: Yes, and they verbalized their understanding of instructions given Patient instructed to take prescribed preparation prior to procedure:Yes, and they verbalized their understanding of instructions given Patient instructed to have family/friend present for procedure transport home:Patient/patient b2b outside sales representative was told that if they do not have a responsible adult accompany them to their procedure; and remain in the endoscopy area until they are discharged; that their procedure cannot be done with sedation or anesthesia and may be cancelled. Any barriers to Patient learning: Patient/Patient Stitcher Set Up Operator Automatic responded appropriately on phone. Type of instruction given: Verbal by telephone contact. Zaira Vera RN [facility] CNOVon 07-04-2025 CNOV Office Visit (INTMWS ) MARCIA MASCORRO ([id number]) 1955 [facility] Date Time Provider Department 07/04/25 9:40 AM LYNDSEY ACEVEDO INTMWS During your visit today, we recorded the following information about you: Pulse Respiration Blood pressure Weight 57/minute 16/minute 88/66 74 kg Lyndsey Acevedo APRN.[facility] 07/04/2025 10:35 AM Signed Subjective Patient ID: Marcia is a 69 year old female who presents for Hospital F/U ([facility] admitted 05/26/25 to 05/29/25.). HPI The patient is a 69-year-old female with heart failure with reduced ejection fraction and hiatal hernia, presenting for post-hospital follow-up. Accompanied by her son, who holds power of trial attorney and is providing history. She was last seen in internal medicine by Nora Crespo CNP March 2025. She noted anxiety depression chronic pain new onset of scalp pruritus and black spots on the scalp and also recent discontinuation of Ativan concerns. Notes indicate under stress considering bariatric surgery. Confusion is noted, UTI check for UTI. She was found to have UTI and treated with Macrobid. She was seen in express care and sent catheter for culture. She was started on mirtazapine at bedtime for anxiety depression and poor sleep quality. Her dose of duloxetine was increased. Resumed Ativan 1 mg 3 times daily. She was referred to behavioral health. She was prescribed medicated shampoo. She was seen in express care in May for a cough. She was a no-show with general surgery, Dr. Bush in May. She was admitted to [facility] on May 26, 2025 through May 29, 2025 for NSTEMI. She underwent heart catheterization. Did not require PCI. Medical management was recommended. She was continued on Xarelto for left mural thrombus. She was treated with Jardiance as well as Entresto for goal-directed therapy. Discontinued home ARB. Continue with Coreg, Lasix and Aldactone. Chest x-ray during admission showed findings consistent with CHF exacerbation. She was treated with IV Lasix during hospitalization for acute on chronic systolic heart failure. Maintain on fluid restriction of 1500 mL daily weight and electrolyte monitoring. Most recent echocardiogram 2021 showed ejection fraction of 30%, moderately dilated LV, 1+ mitral regurgitation. Echocardiogram completed during admission showed ejection fraction 25%. Lisinopril was discontinued during admission. 1 month follow-up with cardiology was recommended. Today reports Marcia Mascorro is a 69-year-old female with a history of CHF, hiatal hernia, and tobacco use, presenting for a hospital follow-up, accompanied by her son who is providing history on her behalf. Hospital Follow-Up: - Recent hospitalization for CHF exacerbation. - Medication changes made during hospitalization, including adjustments to Lasix. - Reports feeling shaky and weak since discharge. - Upcoming cardiology appointment next week. - Son has POA and is managing her care. - Currently resides in an assisted living facility; son is considering transitioning her to home care with nursing support. - Denies receiving flu or COVID booster shots recently. Hiatal Hernia: - Severe hiatal hernia; consulted with Dr. Chaudhary at [facility] in February. - Dr. Chaudhary recommended esophageal manometry and EGD prior to surgical repair. - Previous consultation with Dr. Tejada who declined to perform surgery due to Marcia age and complexity of the case. - Son is coordinating necessary tests and consultations for surgical planning. ROS Constitutional: (+) generalized weakness Skin: (+) scalp pruritus Neurological: (+) tremors Objective BP 88/66 Pulse (!) 57 Resp 16 Wt 74 kg (163 lb 2.3 oz) SpO2 92% BMI 28.20 kg/m? Physical Exam Vitals and nursing note reviewed. Constitutional: Appearance: Normal appearance. HENT: Head: Normocephalic and atraumatic. Eyes: Conjunctiva/sclera: Conjunctivae normal. Neck: Thyroid: No thyromegaly. Vascular: Normal carotid pulses. No JVD. Cardiovascular: Rate and Rhythm: Normal rate and regular rhythm. Pulses: Carotid pulses are 2+ on the right side and 2+ on the left side. Heart sounds: Normal heart sounds. Abdominal: General: Bowel sounds are normal. Palpations: Abdomen is soft. Skin: General: Skin is warm and dry. Neurological: General: No focal deficit present. Mental Status: She is alert and oriented to person, place, and time. Latest Ref Rng 03/14/2024 05/30/2024 09/14/2024 03/28/2025 WBC 3.70 - 11.00 k/uL 6.13 7.05 8.30 7.11 RBC 3.90 - 5.20 m/uL 4.10 4.41 4.31 4.30 Hemoglobin 11.5 - 15.5 g/dL 12.3 13.3 13.7 13.4 Hematocrit 36.0 - 46.0 % 39.1 42.1 42.6 41.7 MCV 80.0 - 100.0 fL 95.4 95.5 98.8 97.0 MCH 26.0 - 34.0 pg 30.0 30.2 31.8 31.2 MCHC 30.5 - 36.0 g/dL 31.5 31.6 32.2 32.1 RDW-CV 11.5 - 15.0 % 13.1 13.2 13.2 13.5 Platelet Count 150 (more content not included)... Normal [facility] 06-19-2025 [facility] Telephone (INTM[facility]) MARCIA MASCORRO ([id number]) 1955 F T Date Time Provider Department 06/19/25 GABRIEL GALVAN INTMWS During your visit today, we recorded the following information about you: Jackeline Franz RN 06/19/2025 5:19 PM Signed [facility]ula from [facility] calling in for refills for pt's medications Xarelto 20 mg, Jardiance 10 mg AND Entresto 24 mg-26 mg. These 3 meds were prescribed by Dr. Jorgito [place] from [facility] during recent hospital admission for NSTEMI. Pt failed to show for hospital f/u visit with Lyndsey Acevedo on 06/08/25. Per Ursula, pt's Plavix was discontinued on 05/30 after hospital admission. Reviewed discharge summasry from 05/29 and updated meds. Pt was seen by manager plan Dr. Curtis and had a heart cath on 05/29 with no intervention. Meds were changed. Attempted to reach pt and her son aSnju with no answer and both voicemails full. Spoke with daughter Marleny and asked her to have pt call to reschedule hospital follow up or reach out to manager plan Dr. Curtis's office to refill medications. Med list updated per discharge summary as Plavix and Lisinopril 5 mg discontinued and added Xarelto 20 mg, Jardiance 10 mg and Entresto 24/26 per med update. Linh Villalobos, WENDY 06/20/2025 11:[address] [facility] calls and states that patient cannot handle the liquid potassium. Asking if medication can be sent in pill form instead? Gabriel Galvan MD 06/20/2025 9:02 PM Signed Filed order for pill Might be too large--will see Patient has not been compliant with taking prior meds per report from [facility]--not sure how to make sure she takes her med given cardiac issues. Did patient get evicted as noted in Fax from [facility] last week? Does she need help with housing, etc? Still needs appointment made for hospital follow up Jackeline Franz, WENDY 06/23/2025 3:33 PM Signed Attempted to reach pt with no answer. Called and got a hold of pt's son Sanju. Sanju states pt is still at [facility] and the staff there is giving pt her medications. Sanju states they seem to have gotten pt straightened around and she is taking her meds now without issues. Offered to make hospital follow up appt but Sanju states he needs to call back to make that appt. He is unable to right now. Brooklyn Langley LPN 06/26/2025 11:07 AM Signed Ursula from [facility] pharmacy calling asking if PCP is going to do the other rx refills for the patient? They do pill packs and deliver to the nurses station at [facility] for the patient. Saw the potassium rx was sent but not the others. Pending rx needs completed. Please advise Gabriel Galvan MD 06/26/2025 7:55 PM Signed Noted that was not evicted. If nursing staff can make sure she takes her medications, can refill meds. Will fill 30 with 1 refills Patient has not yet been seen for follow up. Verify who she will be following with for cardiology since they usually manage meds like Entresto. The following approved medication requests have been transmitted electronically. Requested Prescriptions Signed Prescriptions Disp Refills potassium chloride ER (KLOR-CON) 20 mEq tablet 30 tablet 0 Sig: Take 1 tablet by mouth once daily. Take this while taking furosemide. Authorizing Provider: GABRIEL GALVAN rivaroxaban (XARELTO) 20 mg tablet 30 tablet 1 Sig: Take 1 tablet by mouth daily with dinner. Authorizing Provider: GABRIEL GALVAN empagliflozin (JARDIANCE) 10 mg tablet 30 tablet 1 Sig: Take 1 tablet by mouth daily with breakfast. Authorizing Provider: GABRIEL GALVAN sacubitril-valsartan (ENTRESTO) 24-26 mg tablet 60 tablet 1 Sig: Take 0.5 tablets by mouth two times a day. Authorizing Provider: GABRIEL GALVAN MD Sturdivant, Deborah, LPN 06/27/2025 3:36 PM Signed Attempted to contact son Sanju but no answer and mailbox is full. Attempted to contact daughter but no answer, left message that Dr. Galvan was wondering if patient was set up with cardiology as one of her medication cardiology usually prescribes and also to schedule a follow up appointment with Jackeline Parisi, RN 06/29/2025 11:10 AM Signed Msg sent to pt's daughter Marleny so she can follow up with her brother Sanju regarding below. Jackeline Franz RN 07/03/2025 10:24 AM Signed Pt has appt with Lyndsey Acevedo tomorrow at 0940 Allergies As of Date: 06/19/2025 Noted Allergy Reaction CONTRAST DYE (IODINE) 12/20/2023 10 - Anaphylaxis Date Reviewed: 05/22/2025 Reviewed by: Marleny Dawn MA - Fully Assessed Reason for Visit: Medication Problem [65] Order(s):potassium chloride ER (KLOR-CON) 20 mEq tabletTake 1 tablet by mouth once daily. Take this while taking furosemide.Disp: 30 tabletRfl: 0 rivaroxaban (XARELTO) 20 mg tabletTake 1 tablet by mouth daily with dinner.Disp: 30 tabletRfl: 1 empagliflozin (JAR (more content not included)... [facility] Culture, Blood (WB)on 2024 CUB blood cultures x2, from 2 different sites No growth in 5 days. Normal [facility] Comment on above: Performed By: #### M 200.1000 ####[facility] [address] [place], [place], [id number] 12 Lead EKGon 05-29-2025 12 Lead EKG Normal [facility] Absolute lymphocyte countOrd ered By: Jorgito Jackson on 05-29-2025 Lymphocytes Auto (Unsp spec) [#/Vol] 3.39 10*3/uL 0.83-4.51 [facility] Absolute neutrophil countOrd ered By: Jorgito Jackson on 05-29-2025 Neutrophils (Bld) [#/Vol] 6.5 10*3/uL 2.0-7.7 [facility] Anion gap in Serum or Plasma Ordered By: Jorgito Jackson on 05-29-2025 Anion gap [Moles/Vol] 10 mmol/L 5-15 [facility] Automated blood erythrocyte countOrdered By: Jorgito Jackson on 05-29-2025 RBC (Bld) [#/Vol] 4.09 10*6/uL Low 4.2-5.4 [facility] Comment on above: Performed By: #### L 500.2500, L100.0100 ####[facility] [address] [place], [place], [phone] Automated blood hematocrit ( percentage)Ordered By: Jorgito Jackson on 05-29-2025 Hematocrit (Bld) [Volume fraction] 39.4 % Normal 37-47 [facility] Comment on above: Performed By: #### L 500.2500, L100.0100 ####[facility] [address] [place], [address] Automated lymphocyte count a s percentage of total leukocytesOrdered By: Jorgito Jackson on 05-29-2025 Lymphocytes/100 WBC Auto (Unsp spec) 30.8 % 19-41 [facility] BUN/creatinine ratioOrdered By: Jorgito Jackson on 05-29-2025 Urea nitrogen/Creatinine [Mass ratio] 36.7 mg/mg High 10- [facility] Basic Metabolic Profile (BMP )on 05-29-2025 BUN/CRE 36.7 RATIO High - [facility] Comment on above: Performed By: #### L 500.2500, L100.0100 ####[facility] [address] [place], [address] ECRCL 67.83 ml/min Normal 50-250 [facility] Comment on above: Performed By: #### L 500.2500, L100.0100 ####[facility] [address] [place], [address] GAP 10 Normal 5-15 [facility] Comment on above: Performed By: #### L 500.2500, L100.0100 ####[facility] [address] [place], [address] Potassium [Moles/Vol] 3.3 mmol/L Normal 3.3-5.1 [facility] Comment on above: Performed By: #### L 500.2500, L100.0100 ####[facility] [address] [place], [address] Basophil percentageOrdered B y: Jorgito Jackson on 05-29-2025 Basophils/100 WBC (Bld) 0.1 % Normal 0-1 [facility] Comment on above: Performed By: #### L 500.2500, L100.0100 ####[facility] [address] [place], [address] CBC W/Diff, Automatedon 05-09 Absolute Lymph 3.39 X10 3/uL Normal 0.83-4.51 [facility] Comment on above: Performed By: #### L 500.2500, L100.0100 ####[facility] [address] [place], [address] Absolute Neut 6.5 X10 3/uL Normal 2.0-7.7 [facility] Comment on above: Performed By: #### L 500.2500, L100.0100 ####[facility] [address] [place], [address] IG% 0.500 Normal 0.0-0.9 [facility] Comment on above: Result Comment: IG% - Immature Granulocytes (promyelocytes, myelocytes andmetamyelocytes) > 1% indicates that a LEFT SHIFT is Present. Performed By: #### L 500.2500, L100.0100 ####[facility] [address] [place], [address] Lymphocytes/100 WBC (Bld) 30.8 % Normal 19-41 [facility] Comment on above: Performed By: #### L 500.2500, L100.0100 ####[facility] [address] [place], [address] Nucleated RBC (Bld) [#/Vol] 0 10*3/uL Normal 0-5 [facility] Comment on above: Performed By: #### L 500.2500, L100.0100 ####[facility] [address] [place], [address] RDW SD 48.9 fl High 35.1-43.9 [facility] Comment on above: Performed By: #### L 500.2500, L100.0100 ####[facility] [address] [place], [address] Carbon dioxide, total [Moles /volume] in Central venous bloodOrdered By: Jorgito Jackson on 05-29-2025 CO2 [Moles/Vol] 31.7 mmol/L Normal 21.0-32.0 [facility] Comment on above: Performed By: #### L 500.2500, L100.0100 ####[facility] [address] [place], [address] Cardiac Cath Diagnosticon Cardiac Cath Diagnostic Normal [facility] Cardiac catheterization repo rtOrdered By: Rey Curtis on 05-29-2025 Cardiac catheterization study [facility] Imaging Services [address] [place] [address] Cardiac Cath Diagnostic MR#: [id number] Acct: [id number] Name: MARCIA MASCORRO Rep #:[id number] : 1955 69 From: Rey Curtis MD PCP: Dr. 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 RECOMMENDATIONS Medical therapy DESCRIPTION OF PROCEDURE The patient arrived to the procedure lab. The risks and benefits of the procedure as well as a full description of our services here and current unavailability of surgical backup were fully explained to the patient and/or their significant other prior to the catheterization. The Timeout was completed, verifying the correct patient and procedure. The patient's procedural site was prepped and draped in the usual fashion. Local anesthetic was given subcutaneously to right radial region with Lidocaine 2%. Using a modified Seldinger technique, arterial access was obtained via the right radial artery, a 6Fr sheath was inserted. Left Coronary Artery selective angiography was performed in multiple views using a 5 Fr. 4.0 [place] catheter. Right Coronary Artery selective angiography was then performed in multiple views using a 5 Fr. 4.0 [place] catheter.The arterial sheath was pulled and a TR Band was applied for hemostasis CORONARY ANGIOGRAPHY DOMINANCE: Right Dominant LEFT HEART ASSESSMENT Left Ventricular Ejection Fraction: by Echo 25 % Anterior Akinesis Depressed Left Ventricular systolic function LEFT MAIN: Mild calcification, Mild luminal irregularities LEFT ANTERIOR DESCENDING ARTERY: Mild luminal irregularities less than 30% DISTAL LAD: 70 % Stenosis CIRCUMFLEX ARTERY: Mild luminal irregularities less than 30% OM 1: Proximal - Mild luminal irregularities RIGHT CORONARY ARTERY: Mild luminal irregularities less than 30% COMPLICATIONS No Complications PROCEDURE MEDICATIONS Fentanyl 25 mcg IV Versed 0.5 mg IV Fentanyl 25 mcg IV Versed 0.5 mg IV Oxygen: 3 L/min via nasal cannula Benadryl 50 mg IV @ 05/29/2025 08:07:43 Heparin given IA 05/29/2025 08:38:58 Potassium Chloride 40 mEq PO 05/29/2025 08:07:28 Solu-medrol 125 mg IV 05/29/2025 08:07:36 SUMMARY OF HEMODYNAMIC DATA Time AIR REST ECG 08:06:54 AO 72/46 (57) SA 08:43:06 AO 80/55 (67) 08:45:17 AIR REST 09:00:18 Signed By Rey Curtis MD On 05/29/2025 09:01:07 Rey Curtis MD 05/29/25 0902 Date _ Rey Curtis MD Cosigner Signature: Date (if indicated) CC: Dr. Rey Curtis MD; Dr. Gabriel Galvan MD; Dr. Jorgito Jackson MD ~ Date Dictated: 05/29/25815 Date Transcribed: 05/29/25900 Corporate Tax Preparer: [place] Signed [facility] Work Phone: Chloride assayOrdered By: Mackenzie Jackson on 05-29-2025 Chloride [Moles/Vol] 98 mmol/L Normal 98-108 [facility] Comment on above: Performed By: #### L 500.2500, L100.0100 ####[facility] [address] [facility] [place], [place], [address] Discharge Instructionon 05-09 Discharge Instruction Normal [facility] Electrocardiogram reportOrde red By: Rey Curtis on 05-29-2025 EKG study [facility] Cardiovascular Services [address] [place] [address] 12 Lead EKG 05/29/25 0535 MR#: [id number] Acct: [id number] Name: MARCIA MASCORRO Rep #:[id number] : 1955 69 From: Rey Curtis MD Attending Dr: Dr. Jorgito Jackson MD Status: ADM IN Ordering Dr: Jorgito Jackson MD Da te: 05/29/25 Location: [facility] Sex: F C Admitted: 05/26/25 Test Reason : PRE OP Blood Pressure : */* mmHG Vent. Rate : 69 BPM Atrial Rate : 65 BPM P-R Int : 128 ms QRS Dur : 100 ms QT Int : 392 ms P-R-T Axes : 55 32 140 degrees QTcB Int : 420 ms Normal sinus rhythm Cannot rule out Inferior infarct , age undetermined Anterolateral infarct , age undetermined Abnormal ECG When compared with ECG of 26-May-2025 11:55, MANUAL COMPARISON REQUIRED DATA IS UNCONFIRMED Confirmed by REY CURTIS MD ([id number]), editor index SANTIAGO SMALL ([id number]) on 05/29/2025 10:41:08 AM Referred By: Confirmed By: REY CURTIS MD 05/29/25 1041 Date _ Rey Curtis MD CC: Dr. Gabriel Galvan MD; Dr. Jorgito Jackson MD ~ Signed [facility] Work Phone: EKG study [facility] Cardiovascular Services [address] [place] [address] 12 Lead EKG 05/26/25 1155 MR#: [id number] Acct: [id number] Name: MARCIA MASCORRO Rep #:[id number] : 1955 69 From: Rey Curtis MD Attending Dr: Dr. Jorgito Jackson MD Status: ADM IN Ordering Dr: Jorgito Jackson MD Da te: 05/29/25 Location: [facility] Sex: F C Admitted: 05/26/25 Test Reason : CP Blood Pressure : */* mmHG Vent. Rate : 79 BPM Atrial Rate : 79 BPM P-R Int : 130 ms QRS Dur : 100 ms QT Int : 388 ms P-R-T Axes : 42 13 110 degrees QTcB Int : 444 ms Normal sinus rhythm Cannot rule out Inferior infarct , age undetermined Anteroseptal infarct , age undetermined T wave abnormality, consider lateral ischemia Abnormal ECG When compared with ECG of 26-May-2025 10:48, MANUAL COMPARISON REQUIRED DATA IS UNCONFIRMED Confirmed by REY CURTIS MD ([id number]), editor index SANTIAGO SMALL ([id number]) on 05/29/2025 9:01:37 AM Referred By: Confirmed By: REY CURTIS MD 05/29/25 0901 Date _ Rey Curtis MD CC: Dr. Gabriel Galvan MD; Dr. Jorgito Jackson MD ~ Signed [facility] Work Phone: EKG study [facility] Cardiovascular Services [address] [place] [address] 12 Lead EKG 05/26/25 0613 MR#: [id number] Acct: [id number] Name: MARCIA MASCORRO Rep #:[id number] : 1955 69 From: Rey Curtis MD Attending Dr: Dr. Jorgito Jackson MD Status: ADM IN Ordering Dr: Regan Russo MD Date: 05/26/25 Location: [facility] Sex: F C Admitted: 05/26/25 Test Reason : CP Blood Pressure : */* mmHG Vent. Rate : 72 BPM Atrial Rate : 72 BPM P-R Int : 126 ms QRS Dur : 106 ms QT Int : 388 ms P-R-T Axes : 55 24 59 degrees QTcB Int : 424 ms Normal sinus rhythm Cannot rule out Anteroseptal infarct (cited on or before 17-Jan-2022) Abnormal ECG Confirmed by EVER MARTINEZ, REY ([id number]), editor index SANTIAGO SMALL ([id number]) on 05/29/2025 8:09:05 AM Referred By: HERLINDA Confirmed By: REY CURTIS MD 05/29/25 0809 Date _ Rey Curtis MD CC: Dr. Gabriel Galvan MD; Dr. Jorgito Jackson MD; Dr. Regan Russo MD~ Signed [facility] Work Phone: EKG study [facility] Cardiovascular Services [address] [place] [address] 12 Lead EKG 05/26/25 1048 MR#: [id number] Acct: [id number] Name: MARCIA MASCORRO Vale Rep #:[id number] : 1955 69 From: Rey Curtis MD Attending Dr: Dr. Jorgito Jackson MD Status: ADM IN Ordering Dr: Odell Dwyer DO Date: 0 05/26/25 Location: [facility] Sex: F C Admitted: 05/26/25 Test Reason : REPEAT Blood Pressure : */* mmHG Vent. Rate : 73 BPM Atrial Rate : 73 BPM P-R Int : 130 ms QRS Dur : 100 ms QT Int : 386 ms P-R-T Axes : 51 27 93 degrees QTcB Int : 425 ms Normal sinus rhythm Cannot rule out Anteroseptal infarct , age undetermined Abnormal ECG Confirmed by EVER MARTINEZ, REY ([id number]), editor index SANTIAGO SMALL ([id number]) on 05/29/2025 8:02:59 AM Referred By: Confirmed By: REY CURTIS MD 05/29/25 0803 Date _ Rey Curtis MD CC: Dr. Gabriel Galvan MD; Dr. Jorgito Jackson MD; Dr. Odell Dwyer DO~ Signed [facility] Work Phone: Eosinophil percentageOrdered By: Jorgito Jackson on 05-29-2025 Eosinophils/100 WBC (Bld) 0.5 % Normal 0-5 [facility] Comment on above: Performed By: #### L 500.2500, L100.0100 ####[facility] [address] [place], [place], [address] Erythrocyte distribution wid th ratioOrdered By: Jorgito Jackson on 05-29-2025 Erythrocyte distribution width (RBC) [Ratio] 14.1 % Normal 11.6-14.6 [facility] Comment on above: Performed By: #### L 500.2500, L100.0100 ####[facility] [address] [place], [place], [address] Erythrocyte distribution wid th standard deviationOrdered By: Jorgito Jackson on 05-29-2025 Erythrocyte distribution width (RBC) [Ratio] 48.9 fl High 35.1-43.9 [facility] Glomerular filtration rate ( GFR) estimation/1.73 sq m using serum, plasma, or whole bOrdered By: Jorgito Jackson on 05-29-2025 GFR/1.73 sq M.predicted among non-blacks MDRD (S/P/Bld) [Vol rate/Area] 85 mL/min/{1.73_m2} Normal >60 [facility] Comment on above: mL/min/1.73m2 CKD-EP I Creatinine Equation (2020) Result Comment: mL/m in/1.73m2 CKD-EPI Creatinine Equation (2020) Performed By: #### L 500.2500, L100.0100 ####[facility] [address] [place], [place], [id number] Hemoglobin measurementOrdere d By: Jorgito Jackson on 05-29-2025 Hemoglobin (Bld) [Mass/Vol] 13.0 g/dL Normal 12.0-15. 0 [facility] Comment on above: Performed By: #### L 500.2500, L100.0100 ####[facility] [address] [place], [address] Immature granulocytes/100 WB C Auto (Bld)Ordered By: Jorgito Jackson on 05-29-2025 Immature granulocytes/100 WBC (Bld) 0.500 % 0.0-0.9 [facility] Comment on above: IG% - Immature Granu locytes (promyelocytes, myelocytes and metamyelocytes) > 1% indicates that a LEFT SHIFT is Present. MCV (mean corpuscular volume ) determinationOrdered By: Jorgito Jackson on 05-29-2025 MCV (RBC) [Entitic vol] 96.3 fL Normal 81-99 [facility] Comment on above: Performed By: #### L 500.2500, L100.0100 ####[facility] [address] [place], [address] Magnesiumon 05-29-2025 Magnesium [Mass/Vol] 2.0 mg/dL Normal 1.5-2.2 [facility] Comment on above: Performed By: #### L 501.5200 ####[facility] [address] [place], [address] Magnesium measurement (mass/ volume)Ordered By: Sushma Mcginnis on 05-29-2025 Magnesium (Unsp spec) [Mass/Vol] 2.0 mg/dL 1.5-2.2 [facility] Mean corpuscular hemoglobin (MCH) determinationOrdered By: Jorgito Jackson on 05-29-2025 MCH (RBC) [Entitic mass] 31.8 pg Normal 27.0-32.0 [facility] Comment on above: Performed By: #### L 500.2500, L100.0100 ####[facility] [address] [place], [address] Mean corpuscular hemoglobin concentration (MCHC) determinationOrdered By: Jorgito Jackson on 05-29-2025 MCHC (RBC) [Mass/Vol] 33.0 g/dL Normal 32-36 [facility] Comment on above: Performed By: #### L 500.2500, L100.0100 ####[facility] [address] [place], [address] Mean platelet volume determi nationOrdered By: Jorgito Jackson on 05-29-2025 Platelet mean volume (Bld) [Entitic vol] 9.7 fL Normal 6.2-12.0 [facility] Comment on above: Performed By: #### L 500.2500, L100.0100 ####[facility] [address] [place], [address] Monocyte percentageOrdered B y: Jorgito Jackson on 05-29-2025 Monocytes/100 WBC (Bld) 9.3 % Normal 0-10 [facility] Comment on above: Performed By: #### L 500.2500, L100.0100 ####[facility] [address] [place], [address] Neutrophil percentageOrdered By: Jorgito Jackson on 05-29-2025 Neutrophils/100 WBC (Bld) 58.8 % Normal 47-70 [facility] Comment on above: Performed By: #### L 500.2500, L100.0100 ####[facility] [address] [place], [address] Nucleated red blood cell per centageOrdered By: Jorgito Jackson on 05-29-2025 Nucleated RBC/100 WBC (Bld) [Ratio] 0 % 0-5 [facility] Platelet countOrdered By: Mackenzie Jackson on 05-29-2025 Platelets (Bld) [#/Vol] 201 10*3/uL Normal 150-450 [facility] Comment on above: Performed By: #### L 500.2500, L100.0100 ####[facility] [address] [place], [address] Potassium measurement (mass/ volume)Ordered By: Jorgito Jackson on 05-29-2025 Potassium (Unsp spec) [Mass/Vol] 3.3 mmol/L 3.3-5.1 [facility] Serum creatinine measurement (mass/volume)Ordered By: Jorgito Jackson on 05-29-2025 Creatinine [Mass/Vol] 0.76 mg/dL Normal 0.70-1.20 [facility] Comment on above: Performed By: #### L 500.2500, L100.0100 ####[facility] [address] [place], [address] Serum glucose measurement (m ass/volume)Ordered By: Jorgito Jackson on 05-29-2025 Glucose [Mass/Vol] 103 mg/dL High 70-99 [facility] Comment on above: Performed By: #### L 500.2500, L100.0100 ####[facility] [address] [place], [address] Serum or plasma calcium areli urement (mass/volume)Ordered By: Jorgito Jackson on 05-29-2025 Calcium [Mass/Vol] 9.2 mg/dL Normal 7.6-11.0 [facility] Comment on above: Performed By: #### L 500.2500, L100.0100 ####[facility] [address] [place], [address] Serum or plasma urea nitroge n measurement (mass/volume)Ordered By: Jorgito Jackson on 05-29-2025 Urea nitrogen [Mass/Vol] 28 mg/dL High 4-19 [facility] Comment on above: Performed By: #### L 500.2500, L100.0100 ####[facility] [address] [place], [address] Sodium levelOrdered By: Silviano Jackson on 05-29-2025 Sodium [Moles/Vol] 139 mmol/L Normal 133-145 [facility] Comment on above: Performed By: #### L 500.2500, L100.0100 ####[facility] [address] [place], [address] White blood cell (WBC) count Ordered By: Jorgito Jackson on 05-29-2025 WBC (Bld) [#/Vol] 11.0 10*3/uL Normal 4.4-11.0 [facility] Comment on above: Performed By: #### L 500.2500, L100.0100 ####[facility] [address] [place] [place], [address] Activated partial thrombopla stin time (aPTT) in platelet poor plasma by coagulation aOrdered By: Jorgito Jackson on 05-28-2025 aPTT Coag (PPP) [Time] 57.2 s High 24.1-36.2 [facility] CBC-Complete Blood Cnt No Di ffon 05-28-2025 Erythrocyte distribution width (RBC) [Ratio] 14.0 % Normal 11.6-14.6 [facility] Comment on above: Performed By: #### L 100.0500 ####[facility] [address] [place], [address] Hematocrit (Bld) [Volume fraction] 38.2 % Normal 37-47 [facility] Comment on above: Performed By: #### L 100.0500 ####[facility] [address] [place], [address] Hemoglobin (Bld) [Mass/Vol] 12.9 g/dL Normal 12.0-15. 0 [facility] Comment on above: Performed By: #### L 100.0500 ####[facility] [address] [place], [address] MCH (RBC) [Entitic mass] 32.3 pg High 27.0-32.0 [facility] Comment on above: Performed By: #### L 100.0500 ####[facility] [address] [place], [address] MCHC (RBC) [Mass/Vol] 33.8 g/dL Normal 32-36 [facility] Comment on above: Performed By: #### L 100.0500 ####[facility] [address] [place], [address] MCV (RBC) [Entitic vol] 95.7 fL Normal 81-99 [facility] Comment on above: Performed By: #### L 100.0500 ####[facility] [address] [place], [address] Platelet mean volume (Bld) [Entitic vol] 9.8 fL Normal 6.2-12.0 [facility] Comment on above: Performed By: #### L 100.0500 ####[facility] [address] [place], [address] Platelets (Bld) [#/Vol] 202 10*3/uL Normal 150-450 [facility] Comment on above: Performed By: #### L 100.0500 ####[facility] [address] [place], [address] RBC (Bld) [#/Vol] 3.99 10*6/uL Low 4.2-5.4 [facility] Comment on above: Performed By: #### L 100.0500 ####[facility] [address] [place], [address] RDW SD 48.9 fl High 35.1-43.9 [facility] Comment on above: Performed By: #### L 100.0500 ####[facility] [address] [place], [address] WBC (Bld) [#/Vol] 10.7 10*3/uL Normal 4.4-11.0 [facility] Comment on above: Performed By: #### L 100.0500 ####[facility] [address] [place], [address] Partial Thromboplast Timeon 05-28-2025 aPTT Coag (Bld) [Time] 57.2 s High 24.1-36.2 [facility] Comment on above: Order Comment: Comme nts: heparin drip Performed By: #### L 300.4310 ####[facility] [address] [place], [address] aPTT Coag (Bld) [Time] 46.3 s High 24.1-36.2 [facility] Comment on above: Order Comment: Comme nts: heparin drip - time sensitive Performed By: #### L 300.4310 ####[facility] [address] [place], [address] aPTT Coag (Bld) [Time] 108.1 s Invalid Interpretation Code 24.1-36.2 [facility] Comment on above: Order Comment: Comme nts: Heparin Drip Result Comment: CRIT ICAL VALUE CALLED TO Giana QTWOTB62/21/25 0817 Yolanda Roach.RESULTS READ BACK BY SAME. Performed By: #### L 300.4310 ####[facility] [address] [place], [address] aPTT Coag (Bld) [Time] 50.0 s High 24.1-36.2 [facility] Comment on above: Order Comment: Comme nts: Heparin drip Performed By: #### L 300.4310 ####[facility] [address] [place], [address] Basic Metabolic Profile (BMP )on 05-27-2024 BUN/CRE 26.6 RATIO High 06-26 [facility] Comment on above: Performed By: #### L 500.4100, L501.9520, L500.2500 ####[facility] [address] [place], [address] Calcium [Mass/Vol] 9.5 mg/dL Normal 7.6-11.0 [facility] Comment on above: Performed By: #### L 500.4100, L501.9520, L500.2500 ####[facility] [address] [place], [address] Chloride [Moles/Vol] 103 mmol/L Normal 98-108 [facility] Comment on above: Performed By: #### L 500.4100, L501.9520, L500.2500 ####[facility] [address] [place], [address] CO2 [Moles/Vol] 28.8 mmol/L Normal 21.0-32.0 [facility] Comment on above: Performed By: #### L 500.4100, L501.9520, L500.2500 ####[facility] [address] [place], [address] Creatinine [Mass/Vol] 0.65 mg/dL Low 0.70-1.20 [facility] Comment on above: Performed By: #### L 500.4100, L501.9520, L500.2500 ####[facility] [address] [place], [address] ECRCL 69.57 ml/min Normal 50-250 [facility] Comment on above: Performed By: #### L 500.4100, L501.9520, L500.2500 ####[facility] [address] [place], [address] GAP 8 Normal 5-15 [facility] Comment on above: Performed By: #### L 500.4100, L501.9520, L500.2500 ####[facility] [address] [place], [address] GFR/1.73 sq M.predicted among non-blacks MDRD (S/P/Bld) [Vol rate/Area] 96 mL/min/{1.73_m2} Normal >60 [facility] Comment on above: Result Comment: mL/m in/1.73m2 CKD-EPI Creatinine Equation (2020) Performed By: #### L 500.4100, L501.9520, L500.2500 ####[facility] [address] [place], [address] Glucose [Mass/Vol] 146 mg/dL High 70-99 [facility] Comment on above: Performed By: #### L 500.4100, L501.9520, L500.2500 ####[facility] [address] [place], [address] Potassium [Moles/Vol] 4.3 mmol/L Normal 3.3-5.1 [facility] Comment on above: Performed By: #### L 500.4100, L501.9520, L500.2500 ####[facility] [address] [place], [address] Sodium [Moles/Vol] 140 mmol/L Normal 133-145 [facility] Comment on above: Performed By: #### L 500.4100, L501.9520, L500.2500 ####[facility] [address] [place], [address] Urea nitrogen [Mass/Vol] 17 mg/dL Normal 4-19 [facility] Comment on above: Performed By: #### L 500.4100, L501.9520, L500.2500 ####[facility] [address] [place], [address] CBC W/Diff, Automatedon 09-2 0-2025 Absolute Lymph 1.18 X10 3/uL Normal 0.83-4.51 [facility] Comment on above: Performed By: #### L 100.0100 ####[facility] [address] [place], [address] Absolute Neut 6.1 X10 3/uL Normal 2.0-7.7 [facility] Comment on above: Performed By: #### L 100.0100 ####[facility] [address] [place], [address] Basophils/100 WBC (Bld) 0.3 % Normal 0-1 [facility] Comment on above: Performed By: #### L 100.0100 ####[facility] [address] [place], [address] Eosinophils/100 WBC (Bld) 0.0 % Normal 0-5 [facility] Comment on above: Performed By: #### L 100.0100 ####[facility] [address] [place], [address] Erythrocyte distribution width (RBC) [Ratio] 13.8 % Normal 11.6-14.6 [facility] Comment on above: Performed By: #### L 100.0100 ####[facility] [address] [place], [address] Hematocrit (Bld) [Volume fraction] 38.0 % Normal 37-47 [facility] Comment on above: Performed By: #### L 100.0100 ####[facility] [address] [place], [address] Hemoglobin (Bld) [Mass/Vol] 12.5 g/dL Normal 12.0-15. 0 [facility] Comment on above: Performed By: #### L 100.0100 ####[facility] [address] [place], [address] IG% 0.400 Normal 0.0-0.9 [facility] Comment on above: Result Comment: IG% - Immature Granulocytes (promyelocytes, myelocytes andmetamyelocytes) > 1% indicates that a LEFT SHIFT is Present. Performed By: #### L 100.0100 ####[facility] [address] [place], [address] Lymphocytes/100 WBC (Bld) 15.8 % Low 19-41 [facility] Comment on above: Performed By: #### L 100.0100 ####[facility] [address] [place], [address] MCH (RBC) [Entitic mass] 31.8 pg Normal 27.0-32.0 [facility] Comment on above: Performed By: #### L 100.0100 ####[facility] [address] [place], [address] MCHC (RBC) [Mass/Vol] 32.9 g/dL Normal 32-36 [facility] Comment on above: Performed By: #### L 100.0100 ####[facility] [address] [place], [address] MCV (RBC) [Entitic vol] 96.7 fL Normal 81-99 [facility] Comment on above: Performed By: #### L 100.0100 ####[facility] [address] [place], [address] Monocytes/100 WBC (Bld) 1.9 % Normal 0-10 [facility] Comment on above: Performed By: #### L 100.0100 ####[facility] [address] [place], [address] Neutrophils/100 WBC (Bld) 81.6 % High 47-70 [facility] Comment on above: Performed By: #### L 100.0100 ####[facility] [address] [place], [address] Nucleated RBC (Bld) [#/Vol] 0 10*3/uL Normal 0-5 [facility] Comment on above: Performed By: #### L 100.0100 ####[facility] [address] [place], [address] Platelet mean volume (Bld) [Entitic vol] 9.5 fL Normal 6.2-12.0 [facility] Comment on above: Performed By: #### L 100.0100 ####[facility] [address] [place], [address] Platelets (Bld) [#/Vol] 174 10*3/uL Normal 150-450 [facility] Comment on above: Performed By: #### L 100.0100 ####[facility] [address] [place], [address] RBC (Bld) [#/Vol] 3.93 10*6/uL Low 4.2-5.4 [facility] Comment on above: Performed By: #### L 100.0100 ####[facility] [address] [place], [address] RDW SD 48.8 fl High 35.1-43.9 [facility] Comment on above: Performed By: #### L 100.0100 ####[facility] [address] [place], [address] WBC (Bld) [#/Vol] 7.5 10*3/uL Normal 4.4-11.0 [facility] Comment on above: Performed By: #### L 100.0100 ####[facility] [address] [place], [address] Calculated very low density lipoprotein (VLDL) cholesterol measurementOrdered By: Regan Russo on 05-27-2025 Calculated very low density lipoprotein (VLDL) cholesterol measurement 14 mg/dL 5-40 [facility] Consultation - Cardiologyon 05-27-2025 Consultation - Cardiology Normal [facility] LDL calc ser/plasOrdered By: Regan Russo on 05-27-2025 Cholesterol in LDL [Mass/Vol] 123 mg/dL [facility] Comment on above: Uabyeapezf=206-842 m g/dL & Higher Mxgq=270 mg/dL or greaterFriedwald Equation for LDL-C Lipid Profileon 05-27-2025 CHOL:HDL 3.66 Normal [facility] Comment on above: Performed By: #### L 500.4100, L501.9520, L500.2500 ####[facility] [address] [place], [address] Cholesterol [Mass/Vol] 188 mg/dL Normal <=200 [facility] Comment on above: Result Comment: Chol esterol level, Desirable <200 mg/dLBorderline high cholesterol 200-239 mg/dLHigh cholesterol >=240 mg/dLRecommendations of the NCEP Adult Treatment Panel for thefollowing risk-cutoff thresholds for the [place] Americanpopulation. Performed By: #### L 500.4100, L501.9520, L500.2500 ####[facility] [address] [place], [address] Cholesterol in HDL [Mass/Vol] 51 mg/dL Normal [facility] Comment on above: Result Comment: Velvet onal Cholesterol Education Program (NCEP) guidelines:<40 mg/dL: Low HDL-cholesterol (major risk factor for CHD)>= 60 mg/dL: High HDL-cholesterol (negative risk factor forCHD)HDL-cholesterol is affected by a number of factors, e.g.smoking, exercise, hormones, sex and age. Performed By: #### L 500.4100, L501.9520, L500.2500 ####[facility] [address] [place], [address] Cholesterol in LDL [Mass/Vol] 123 mg/dL Normal [facility] Comment on above: Result Comment: Bord ezpdrs=658-824 mg/dL Higher Bkco=363 mg/dL or greaterFriedwald Equation for LDL-C Performed By: #### L 500.4100, L501.9520, L500.2500 ####[facility] [address] [place], [address] Cholesterol in VLDL [Mass/Vol] 14 mg/dL Normal 5-40 [facility] Comment on above: Performed By: #### L 500.4100, L501.9520, L500.2500 ####[facility] [address] [place], [address] Triglyceride [Mass/Vol] 68 mg/dL Normal [facility] Comment on above: Result Comment: The drugs N-Acetylcysteine and Metamizole may falselydepress this assay.Normal range: <150 mg/dLBorderline High: 150-199 mg/dLHigh: 200-499 mg/dLVery High: >500 mg/dL Performed By: #### L 500.4100, L501.9520, L500.2500 ####[facility] [address] [place], [address] Partial Thromboplast Timeon 05-27-2025 aPTT Coag (Bld) [Time] 52.2 s High 24.1-36.2 [facility] Comment on above: Order Comment: Comme nts: heparin drip - time sensitive Performed By: #### L 300.4310 ####[facility] [address] [place], [address] aPTT Coag (Bld) [Time] 52.0 s High 24.1-36.2 [facility] Comment on above: Order Comment: Comme nts: heparin gtt Performed By: #### L 300.4310 ####[facility] [address] [place], [address] aPTT Coag (Bld) [Time] 68.6 s High 24.1-36.2 [facility] Comment on above: Order Comment: Comme nts: heparin drip- time sensitive Performed By: #### L 300.4310 ####[facility] [address] [place], [address] Screening total cholesterol/ high density lipoprotein (HDL) cholesterol ratioOrdered By: Regan Russo on 05-27-2025 Cholesterol.total/Cholester ol in HDL [Mass ratio] 3.66 {ratio} [facility] Serum or plasma cholesterol in HDL measurement (mass/volume)Ordered By: eRgan Russo on 05-27-2025 Cholesterol in HDL [Mass/Vol] 51 mg/dL >40 [facility] Comment on above: National Cholesterol Education Program (NCEP) guidelines:<40 mg/dL: Low HDL-cholesterol (major risk factor for CHD)>= 60 mg/dL: High HDL-cholesterol (negative risk factor for CHD)HDL-cholesterol is affected by a number of factors, e.g. smoking, exercise, hormones, sex and age. Serum or plasma cholesterol measurement (mass/volume)Ordered By: Regan Russo on 05-27-2025 Cholesterol [Mass/Vol] 188 mg/dL <201 [facility] Comment on above: Cholesterol level, D esirable <200 mg/dLBorderline high cholesterol 200-239 mg/dLHigh cholesterol >=240 mg/dLRecommendations of the NCEP Adult Treatment Panel for the following risk-cutoff thresholds for the [place] population. Strep pneumoniae Antig(UR,CS F)on 05-27-2025 STPAG Normal [facility] Comment on above: Performed By: #### M 300.4600 ####[facility] [address] [place], [address] TSH DL <= 0.005 mIU/L QnOrde red By: Regan Russo on 05-27-2025 TSH Qn 0.505 uIU/mL 0.300-4.20 0 [facility] Thyroid Stim Hormone (TSH)on 05-27-2025 TSH 0.505 uIU/mL Normal 0.300-4.20 0 [facility] Comment on above: Performed By: #### L 500.4100, L501.9520, L500.2500 ####[facility] [address] [place], [address] Triglycerides measurementOrd ered By: Regan Russo on 05-27-2025 Triglyceride [Mass/Vol] 68 mg/dL <199 [facility] Comment on above: The drugs N-Acetylcy steine and Metamizole may falsely depress this assay. Normal range: <150 mg/dLBorderline High: 150-199 mg/dLHigh: 200-499 mg/dLVery High: >500 mg/dL 12 Lead EKGon 05-26-2025 12 Lead EKG Normal [facility] 12 Lead EKG Normal [facility] Basic Metabolic Profile (BMP )on 05-26-2025 BUN/CRE 18.1 RATIO Normal 06-26 [facility] Comment on above: Performed By: #### L 100.0100, L501.5200, L501.4021, L500.2500, L503.7505 ####[facility] [address] [place], [address] Calcium [Mass/Vol] 9.2 mg/dL Normal 7.6-11.0 [facility] Comment on above: Performed By: #### L 100.0100, L501.5200, L501.4021, L500.2500, L503.7505 ####[facility] [address] [place], [address] Chloride [Moles/Vol] 109 mmol/L High 98-108 [facility] Comment on above: Performed By: #### L 100.0100, L501.5200, L501.4021, L500.2500, L503.7505 ####[facility] [address] [place], [address] CO2 [Moles/Vol] 26.6 mmol/L Normal 21.0-32.0 [facility] Comment on above: Performed By: #### L 100.0100, L501.5200, L501.4021, L500.2500, L503.7505 ####[facility] [address] [place], [address] Creatinine [Mass/Vol] 0.90 mg/dL Normal 0.70-1.20 [facility] Comment on above: Performed By: #### L 100.0100, L501.5200, L501.4021, L500.2500, L503.7505 ####[facility] [address] [place], [address] ECRCL 57.50 ml/min Normal 50-250 [facility] Comment on above: Performed By: #### L 100.0100, L501.5200, L501.4021, L500.2500, L503.7505 ####[facility] [address] [place], [address] GAP 9 Normal 5-15 [facility] Comment on above: Performed By: #### L 100.0100, L501.5200, L501.4021, L500.2500, L503.7505 ####[facility] [address] [place], [address] GFR/1.73 sq M.predicted among non-blacks MDRD (S/P/Bld) [Vol rate/Area] 70 mL/min/{1.73_m2} Normal >60 [facility] Comment on above: Result Comment: mL/m in/1.73m2 CKD-EPI Creatinine Equation (2020) Performed By: #### L 100.0100, L501.5200, L501.4021, L500.2500, L503.7505 ####[facility] [address] [place], [address] Glucose [Mass/Vol] 122 mg/dL High 70-99 [facility] Comment on above: Performed By: #### L 100.0100, L501.5200, L501.4021, L500.2500, L503.7505 ####[facility] [address] [place], [address] Potassium [Moles/Vol] 4.2 mmol/L Normal 3.3-5.1 [facility] Comment on above: Performed By: #### L 100.0100, L501.5200, L501.4021, L500.2500, L503.7505 ####[facility] [address] [place], [address] Sodium [Moles/Vol] 144 mmol/L Normal 133-145 [facility] Comment on above: Performed By: #### L 100.0100, L501.5200, L501.4021, L500.2500, L503.7505 ####[facility] [address] [place], [address] Urea nitrogen [Mass/Vol] 16 mg/dL Normal 4-19 [facility] Comment on above: Performed By: #### L 100.0100, L501.5200, L501.4021, L500.2500, L503.7505 ####[facility] [address] [place], [address] Bilirubin directOrdered By: Regan Russo on 05-26-2025 Bilirubin.direct [Mass/Vol] mg/dL 0.00-0.3 0 [facility] Bilirubin, totalOrdered By: Regan Russo on 05-26-2025 Bilirubin [Mass/Vol] mg/dL 0.00-1.30 [facility] Blood cultureOrdered By: Keisha Russo on 05-26-2025 Bacteria identified Cx Nom (Bld) No growth in 5 days. [facility] Bacteria identified Cx Nom (Bld) No growth in 5 days. [facility] CBC W/Diff, Automatedon 05-08 Absolute Neut Normal 2.0-7.7 [facility] Comment on above: Order Comment: Comme nts: If not done in prior 24 hours Result Comment: DUPL ICATE. SEE H93 Performed By: #### L 300.3900, L100.0100 ####[facility] [address] [place], [address] HCT Normal 37-47 [facility] Comment on above: Order Comment: Comme nts: If not done in prior 24 hours Result Comment: DUPL ICATE. SEE H93 Performed By: #### L 300.3900, L100.0100 ####[facility] [address] [place], [address] HGB Normal 12.0-15.0 [facility] Comment on above: Order Comment: Comme nts: If not done in prior 24 hours Result Comment: DUPL ICATE. SEE H93 Performed By: #### L 300.3900, L100.0100 ####[facility] [address] [place], [address] MCH Normal 27.0-32.0 [facility] Comment on above: Order Comment: Comme nts: If not done in prior 24 hours Result Comment: DUPL ICATE. SEE H93 Performed By: #### L 300.3900, L100.0100 ####[facility] [address] [place], [address] MCHC Normal 32-36 [facility] Comment on above: Order Comment: Comme nts: If not done in prior 24 hours Result Comment: DUPL ICATE. SEE H93 Performed By: #### L 300.3900, L100.0100 ####[facility] [address] [place], [address] MCV Normal 81-99 [facility] Comment on above: Order Comment: Comme nts: If not done in prior 24 hours Result Comment: DUPL ICATE. SEE H93 Performed By: #### L 300.3900, L100.0100 ####[facility] [address] [place], [address] NEUT% Normal 47-70 [facility] Comment on above: Order Comment: Comme nts: If not done in prior 24 hours Result Comment: DUPL ICATE. SEE H93 Performed By: #### L 300.3900, L100.0100 ####[facility] [address] [place], [address] PLT Normal 150-450 [facility] Comment on above: Order Comment: Comme nts: If not done in prior 24 hours Result Comment: DUPL ICATE. SEE H93 Performed By: #### L 300.3900, L100.0100 ####[facility] [address] [place], [address] RBC Normal 4.2-5.4 [facility] Comment on above: Order Comment: Comme nts: If not done in prior 24 hours Result Comment: DUPL ICATE. SEE H93 Performed By: #### L 300.3900, L100.0100 ####[facility] [address] [place], [address] RDW CV Normal 11.6-14.6 [facility] Comment on above: Order Comment: Comme nts: If not done in prior 24 hours Result Comment: DUPL ICATE. SEE H93 Performed By: #### L 300.3900, L100.0100 ####[facility] [address] [place], [address] RDW SD Normal 35.1-43.9 [facility] Comment on above: Order Comment: Comme nts: If not done in prior 24 hours Result Comment: KIESHA ICATE. SEE H93 Performed By: #### L 300.3900, L100.0100 ####[facility] [address] [place], [address] WBC Normal 4.4-11.0 [facility] Comment on above: Order Comment: Comme nts: If not done in prior 24 hours Result Comment: KHLOEL ICATE. SEE H93 Performed By: #### L 300.3900, L100.0100 ####[facility] [address] [place], [address] Absolute Lymph 4.71 X10 3/uL High 0.83-4.51 [facility] Comment on above: Performed By: #### L 100.0100, L501.5200, L501.4021, L500.2500, L503.7505 ####[facility] [address] [place], [address] Absolute Neut 2.6 X10 3/uL Normal 2.0-7.7 [facility] Comment on above: Performed By: #### L 100.0100, L501.5200, L501.4021, L500.2500, L503.7505 ####[facility] [address] [place], [address] Basophils/100 WBC (Bld) 0.9 % Normal 0-1 [facility] Comment on above: Performed By: #### L 100.0100, L501.5200, L501.4021, L500.2500, L503.7505 ####[facility] [address] [place], [address] Eosinophils/100 WBC (Bld) 3.1 % Normal 0-5 [facility] Comment on above: Performed By: #### L 100.0100, L501.5200, L501.4021, L500.2500, L503.7505 ####[facility] [address] [place], [address] Erythrocyte distribution width (RBC) [Ratio] 14.1 % Normal 11.6-14.6 [facility] Comment on above: Performed By: #### L 100.0100, L501.5200, L501.4021, L500.2500, L503.7505 ####[facility] [address] [place], [address] Hematocrit (Bld) [Volume fraction] 40.5 % Normal 37-47 [facility] Comment on above: Performed By: #### L 100.0100, L501.5200, L501.4021, L500.2500, L503.7505 ####[facility] [address] [place], [address] Hemoglobin (Bld) [Mass/Vol] 13.4 g/dL Normal 12.0-15. 0 [facility] Comment on above: Performed By: #### L 100.0100, L501.5200, L501.4021, L500.2500, L503.7505 ####[facility] [address] [place], [address] IG% 0.200 Normal 0.0-0.9 [facility] Comment on above: Result Comment: IG% - Immature Granulocytes (promyelocytes, myelocytes andmetamyelocytes) > 1% indicates that a LEFT SHIFT is Present. Performed By: #### L 100.0100, L501.5200, L501.4021, L500.2500, L503.7505 ####[facility] [address] [place], [address] Lymphocytes/100 WBC (Bld) 55.8 % High 19-41 [facility] Comment on above: Performed By: #### L 100.0100, L501.5200, L501.4021, L500.2500, L503.7505 ####[facility] [address] [place], [address] MCH (RBC) [Entitic mass] 32.3 pg High 27.0-32.0 [facility] Comment on above: Performed By: #### L 100.0100, L501.5200, L501.4021, L500.2500, L503.7505 ####[facility] [address] [place], [address] MCHC (RBC) [Mass/Vol] 33.1 g/dL Normal 32-36 [facility] Comment on above: Performed By: #### L 100.0100, L501.5200, L501.4021, L500.2500, L503.7505 ####[facility] [address] [place], [address] MCV (RBC) [Entitic vol] 97.6 fL Normal 81-99 [facility] Comment on above: Performed By: #### L 100.0100, L501.5200, L501.4021, L500.2500, L503.7505 ####[facility] [address] [place], [address] Monocytes/100 WBC (Bld) 8.8 % Normal 0-10 [facility] Comment on above: Performed By: #### L 100.0100, L501.5200, L501.4021, L500.2500, L503.7505 ####[facility] [address] [place], [address] Neutrophils/100 WBC (Bld) 31.2 % Low 47-70 [facility] Comment on above: Performed By: #### L 100.0100, L501.5200, L501.4021, L500.2500, L503.7505 ####[facility] [address] [place], [address] Nucleated RBC (Bld) [#/Vol] 0 10*3/uL Normal 0-5 [facility] Comment on above: Performed By: #### L 100.0100, L501.5200, L501.4021, L500.2500, L503.7505 ####[facility] [address] [place], [address] Platelet mean volume (Bld) [Entitic vol] 9.8 fL Normal 6.2-12.0 [facility] Comment on above: Performed By: #### L 100.0100, L501.5200, L501.4021, L500.2500, L503.7505 ####[facility] [address] [place], [address] Platelets (Bld) [#/Vol] 230 10*3/uL Normal 150-450 [facility] Comment on above: Performed By: #### L 100.0100, L501.5200, L501.4021, L500.2500, L503.7505 ####[facility] [address] [place], [address] RBC (Bld) [#/Vol] 4.15 10*6/uL Low 4.2-5.4 [facility] Comment on above: Performed By: #### L 100.0100, L501.5200, L501.4021, L500.2500, L503.7505 ####[facility] [address] [place], [address] RDW SD 50.5 fl High 35.1-43.9 [facility] Comment on above: Performed By: #### L 100.0100, L501.5200, L501.4021, L500.2500, L503.7505 ####[facility] [address] [place], [address] WBC (Bld) [#/Vol] 8.4 10*3/uL Normal 4.4-11.0 [facility] Comment on above: Performed By: #### L 100.0100, L501.5200, L501.4021, L500.2500, L503.7505 ####[facility] [address] [place], [address] Chest 1 View (Portable)on Chest 1 View (Portable) Normal [facility] Echo Complete W/ Contraston 05-26-2025 Echo Complete W/ Contrast Normal [facility] Echocardiogram study reportO rdered By: Rey Curtis on 05-26-2025 Study report [facility] [address] [place] [address] Echo Complete W/ Contrast 05/26/25 1444 MR#: [id number] Acct: [id number] Name: MARCIA MASCORRO Rep #:[id number] : 1955 69 From: [place] Quiñones Attending Dr: Dr. Regan Russo MD Status: ADM IN Ordering Dr: Regan Russo MD Date: 05/26/25 Location: PCU Sex: F C Admitted: 05/26/25 Reason For Study Reason For Study: NSTEMI Procedure This was a 2D Doppler, Color Flow transthoracic echocardiogram. The study was technically difficult. Contrast injection was performed. Exam performed portable in patient room. Left Ventricle Normal LV size. Thrombus adherent to the anterior apical wall. The left ventricular ejection fraction is 25 %. Severe segmental systolic dysfunction (see wall motion). [place] : Akinetic. Lateral [place] : Akinetic. Mid-Lateral : Hypokinetic. Mid-anteroseptal : Severely Hypokinetic. Inferior [place] : Akinetic. Anterior [place]: Akinetic. Right Ventricle Normal RV size. Normal systolic function. Atria The left atrium is moderately enlarged. Normal right atrium. Mitral Valve Normal mitral valve. Tricuspid Valve Normal tricuspid valve. Mild to moderate (1-2+) tricuspid valve insufficiency. Pulmonary artery systolic pressure is 45 mmHg. Aortic Valve Trisinus/trileaflet aortic valve. Pulmonic Valve The pulmonic valve is not well visualized. Great Vessels Normal aortic root. The pulmonary artery is normal size. Inferior vena cava collapse with respiration. Pericardium/Pleural No pericardial effusion. Medication Diluted definity 4ml given slow IV push to enhance endocardial definition. MMode/2D Measurements & Calculations RVDd: 3.3 cm LAV(MOD-bp): 87.3 ml LVAd ap4: 41.1 cm2 LAV(MOD-bp) Indexed: 46.8 ml/m2 LVLd ap4: 8.1 cm LAV(MOD-sp2): 84.1 ml EDV(MOD-sp4): 166.3 ml LAV(MOD-sp4): 79.8 ml EDV(sp4-el): 176.2 ml LVAs ap4: 36.7 cm2 LVLs ap4: 8.4 cm ESV(MOD-sp4): 126.6 ml ESV(sp4-el): 136.4 ml EF(MOD-sp4): 23.9 % EF(sp4-el): 22.6 % SV(MOD-sp4): 39.7 ml SV(sp4-el): 39.8 ml LA A4 area: 25.0 cm2 SI(MOD-sp4): 21.3 ml/m2 RA A4 area: 10.2 cm2 Time Measurements MV dec time: 0.09 sec Doppler Measurements & Calculations MV E max afshan: 83.9 cm/sec Lat Peak E' Afshan: 7.0 cm/sec Med Peak E' Afshan: 4.3 cm/sec MV A max afshan: 83.6 cm/sec E/E' lat: 11.9 E/E' med: 19.7 MV E/A: 1.0 __ MV V2 max: 110.4 cm/sec MV dec slope: 1071 cm/sec2 Ao V2 max: 123.6 cm/sec MV max P.9 mmHg Ao max P.1 mmHg MV V2 mean: 54.4 cm/sec Ao V2 mean: 79.9 cm/sec MV mean P.5 mmHg Ao mean P.0 mmHg MV V2 VTI: 28.2 cm Ao V2 VTI: 24.3 cm AV (velocity ratio): 0.59 LV V1 max: 77.5 cm/sec TR max afshan: 322.3 cm/sec LV V1 max P.4 mmHg TR max P.6 mmHg LV V1 mean P.4 mmHg LV V1 mean: 55.9 cm/sec LV V1 VTI: 14.3 cm ECHO/Echo Complete W/ Contrast Interpretation Summary Normal LV size. The left ventricular ejection fraction is 25 %. Thrombus adherent to the anterior apical wall. Severe segmental systolic dysfunction (see wall motion). Ordering Physician: Regan Russo Referring Physician: Gabriel Galvan M.D. Performed By: Rehana Gomes RCS 05/26/25 1623 Date _ Rey Curtis MD CC: Dr. Gabriel Galvan MD; Dr. Regan Russo MD ~ Date Dictated: 05/26/25 1444 Date Transcribed: 05/26/251622 Corporate Tax Preparer: Signed [facility] Work Phone: Emergency Department Summary on 05-26-2025 Emergency Department Summary Normal [facility] H AND P Exam - Hospitaliston 05-26-2025 H&P Exam - Hospitalist Normal [facility] International normalized rat io (INR) calculationOrdered By: Odell Dwyer on 05-26-2025 INR Coag (Bld) [Relative time] 0.9 {INR} [facility] L501.4021on 05-26-2025 Trop T High Sen 18 ng/L High <=14 [facility] Comment on above: Performed By: #### L 100.0100, L501.5200, L501.4021, L500.2500, L503.7505 ####[facility] [address] [place], [place], [address] Laboratory - Chemistry and C hemistry - challengeOrdered By: Regan Russo on 05-26-2025 AST [Catalytic activity/Vol] 35 U/L High <32 [facility] Liver Profileon 05-26-2025 Albumin [Mass/Vol] 3.4 g/dL Normal 3.4-4.8 [facility] Comment on above: Order Comment: FG2 1 M Performed By: #### L 500.3400, L501.2300, L300.4310 ####[facility] [address] [place], [address] ALK PHOS 153 U/L High 35-104 [facility] Comment on above: Order Comment: FG2 1 M Performed By: #### L 500.3400, L501.2300, L300.4310 ####[facility] [address] [place], [address] ALT [Catalytic activity/Vol] 20 U/L Normal <=34 [facility] Comment on above: Order Comment: FG2 1 M Performed By: #### L 500.3400, L501.2300, L300.4310 ####[facility] [address] [place], [address] AST [Catalytic activity/Vol] 35 U/L High <=31 [facility] Comment on above: Order Comment: FG2 1 M Performed By: #### L 500.3400, L501.2300, L300.4310 ####[facility] [address] [place], [address] D BILI < 0.08 Normal 0.00-0.30 [facility] Comment on above: Order Comment: FG2 1 M Performed By: #### L 500.3400, L501.2300, L300.4310 ####[facility] [address] [place], [address] Globulin (S) [Mass/Vol] 2.6 g/dL Normal 2.2-4.2 [facility] Comment on above: Order Comment: FG2 1 M Performed By: #### L 500.3400, L501.2300, L300.4310 ####[facility] [address] [place], [address] T BILI < 0.15 Normal 0.00-1.30 [facility] Comment on above: Order Comment: FG2 1 M Performed By: #### L 500.3400, L501.2300, L300.4310 ####[facility] [address] [place], [address] T PROT 6.0 g/dL Normal 5.9-8.4 [facility] Comment on above: Order Comment: FG2 1 M Performed By: #### L 500.3400, L501.2300, L300.4310 ####[facility] [address] [place], [address] M100.019on 05-26-2025 M100.019 Negative Normal [facility] Comment on above: Performed By: #### M 8200.1000, M100.019 ####[facility] [address] [place], [address] M8200.1000on 05-26-2025 M8200.1000 Negative Normal [facility] Comment on above: Performed By: #### M 8200.1000, M100.019 ####[facility] [address] [place], [address] Magnesiumon 05-26-2025 Magnesium [Mass/Vol] 2.2 mg/dL Normal 1.5-2.2 [facility] Comment on above: Performed By: #### L 100.0100, L501.5200, L501.4021, L500.2500, L503.7505 ####[facility] [address] [place], [address] Nasal methicillin resistant Staphylococcus aureus (MRSA) DNA detection by PCROrdered By: Regan Russo on 05-26-2025 MRSA DNA KAYDEN+probe Ql (Nose) [facility] Natriuretic peptide.B prohor avinash N-Terminal [Mass/volume] in Serum or PlasmaOrdered By: Ross Lou on 05-26-2025 Natriuretic peptide.B prohormone N-Terminal [Mass/Vol] 2936 pg/mL High <900 [facility] Comment on above: Heart Failure Unlike ly: < 300 pg/mLHeart Failure Likely< 50 Years: > 450 pg/mL50-75 Years: > 900 pg/mL>75 Years: > 1800 pg/mL Partial Thromboplast Timeon 05-26-2025 aPTT Coag (Bld) [Time] 39.0 s High 24.1-36.2 [facility] Comment on above: Performed By: #### L 300.4310 ####[facility] [address] [place], [address] aPTT Coag (Bld) [Time] s Invalid Interpretation Code 24.1-36.2 [facility] Comment on above: Order Comment: SPOKE TO SHANEKA NGUYEN IN ED, SHE WILL REDRAW PATIENT FOR PTTSINCE SPECIMEN IS TOO OLDCRITICAL VALUE CALLED TO maura lerma05/26/25 Cedric Mandel.RESULTS READ BACK BY same. Performed By: #### L 500.3400, L501.2300, L300.4310 ####[facility] [address] [place], [address] Phosphoruson 05-26-2025 Phosphate [Mass/Vol] 4.5 mg/dL Normal 2.7-4.5 [facility] Comment on above: Order Comment: FG2 1 M Performed By: #### L 500.3400, L501.2300, L300.4310 ####[facility] [address] [place], [address] Pro- Brain NATRIURETIC PEPTI Veronica 05-26-2025 Natriuretic peptide B (Bld) [Mass/Vol] 2936 pg/mL High <=900 [facility] Comment on above: Result Comment: Hear t Failure Unlikely: < 300 pg/mLHeart Failure Likely< 50 Years: > 450 pg/mL50-75 Years: > 900 pg/mL>75 Years: > 1800 pg/mL Performed By: #### L 100.0100, L501.5200, L501.4021, L500.2500, L503.7505 ####[facility] [address] [place], [address] Prothrombin Time w/INRon INR Coag (PPP) [Relative time] 0.9 {INR} Normal [facility] Comment on above: Order Comment: Comme nts: If not done in prior 24 hoursSPOKE TO SHANEKA RN IN ED, SHE WILL REDRAW PATIENT FOR PTTSINCE SPECIMEN IS TOO OLD Performed By: #### L 300.3900, L100.0100 ####[facility] [address] [place], [address] Prothrombin timeOrdered By: Odell Dwyer on 05-26-2025 PT Coag (PPP) [Time] 12.8 s Normal 11.7-14.9 [facility] Comment on above: Order Comment: Comme nts: If not done in prior 24 hoursSPOKE TO SHANEKA RN IN ED, SHE WILL REDRAW PATIENT FOR PTTSINCE SPECIMEN IS TOO OLD Performed By: #### L 300.3900, L100.0100 ####[facility] [address] [place], [address] RESPIRATORY PANEL MOLECULARo n 05-26-2025 RP PANEL Normal [facility] Comment on above: Performed By: #### M 100.638 ####[facility] [address] [place], [address] Respiratory pathogens detect ion panel by molecular detection methodOrdered By: Regan Russo on 05-26-2025 Respiratory pathogens DNA and RNA panel KAYDEN+probe (Resp) [facility] Zlhh-vjx-9Zchbmaz By: Marck Russo on 05-26-2025 SARS-CoV-2 (COVID-19) RNA KAYDEN+probe Ql (Unsp spec) [facility] Serum globulin measurementOr dered By: Regan Russo on 05-26-2025 Globulin (S) [Mass/Vol] 2.6 g/dL 2.2-4.2 [facility] Serum or plasma alanine smith otransferase (ALT) measurementOrdered By: Regancharissa Russo on 05-26-2025 ALT [Catalytic activity/Vol] 20 U/L <35 [facility] Serum or plasma albumin areli urement (mass/volume)Ordered By: [facility] on 05-26-2025 Albumin [Mass/Vol] 3.4 g/dL 3.4-4.8 [facility] Serum or plasma alkaline abimael sphatase measurementOrdered By: [facility] on 05-26-2025 ALP [Catalytic activity/Vol] 153 U/L High 35-104 [facility] Total proteinOrdered By: [facility] on 05-26-2025 Protein [Mass/Vol] 6.0 g/dL 5.9-8.4 [facility] Troponin T HS 2 HRon 025 Trop T High Sen 102 ng/L Invalid Interpretation Code <=14 [facility] Comment on above: Result Comment: Crit ical Result(s) Called at: 0905/26/2025 by: INDRA??Results read back by same. Performed By: #### L 499.0042 ####[facility] [address] [place], [address] Troponin T HS 4 HRon 025 Trop T High Sen 598 ng/L Invalid Interpretation Code <=14 [facility] Comment on above: Result Comment: Crit ical Result(s) Called at: 1207 05/26/2025 by: MARK??Results read back by same. Performed By: #### L 499.0043 ####[facility] [address] [place], [place], [address] Troponin T.cardiac [Mass/vol ume] in Serum or Plasma by High sensitivity methodOrdered By: Ross Lou on 05-26-2025 Troponin T.cardiac High sensitivity method [Mass/Vol] 598 ng/L Critically high <14 [facility] Comment on above: Critical Result(s) C alled at: 1207 05/26/2025 by: LEATHA LERMA Results read back by same. Troponin T.cardiac High sensitivity method [Mass/Vol] 102 ng/L Critically high <14 [facility] Comment on above: Critical Result(s) C alled at: 0900 05/26/2025 by: EMY PETTY Results read back by same. Troponin T.cardiac High sensitivity method [Mass/Vol] 18 ng/L High <14 [facility] Comment on above: Delta: 11 on 5-1508 CNCOon 05-24-2025 CNCO Letter Text Normal [facility] CNPNon 05-24-2025 CNPN Telephone (AGGENS4) MARCIA MASCORRO ([id number]) 1955 F T Date Time Provider Department 05/24/25 MARCELO BUSH4 During your visit today, we recorded the following information about you: Carla Alvarado 05/24/2025 4:01 PM Signed Patient No Showed appointment. - Rachelle Unable to LVM for patient to call back to reschedule appointment full. TrumpIT message sent to patient. Allergies As of Date: 05/24/2025 Noted Allergy Reaction CONTRAST DYE (IODINE) 12/20/2023 10 - Anaphylaxis Date Reviewed: 05/22/2025 Reviewed by: Marleny Dawn MA - Fully Assessed Reason for Visit: Appointment [186] Cmt: Patient No Showed appointment. - Rachelle Unable to LVM for patient to call back to reschedule appointment vm full. TrumpIT message sent to patient. Prescriptions as of 05/24/2025 - HYDROcodone-acetaminop hen (NORCO) 5-325 mg per tablet Take 1 tablet by mouth every 8 hours as needed for pain. - amoxicillin-clavulanat e potassium (AUGMENTIN) 875-125 mg per tablet Take [...] Tremor [R25.1 (more content not included)... Normal [facility] CNOVon 05-22-2025 CNOV Office Visit (WOUCA) MARCIA MASCORRO ([id number]) 1955 F T Date Time Provider Department 05/22/25 10:30 AM RAJIV MUNOZ During your visit today, we recorded the following information about you: Temperature Pulse Respiration Blood pressure 99.4 degrees 78/minute 20/minute 138/90 Weight 78.9 kg Rajiv Munoz APRN.CNP 05/22/2025 11:36 AM Signed 1. Acute cough [...] - Your prescriptions have been sent to [facility] ([facility]). A printed copy will be provided for your records. - Schedule a follow-up appointment with your primary care provider to recheck the fluid on your lung. Rajiv Munoz APRN.PILOT CAPTAIN 05/22/2025 11:43 AM Signed [facility] [...] for cough. Constitutional: (+) chills, (-) fever Ears/Nose/Mouth/Throat : (+) sore throat, (-) rhinorrhea, (-) nasal [...] artery disease) - CHF (congestive heart failure) ([facility]) - Chronic back pain - Chronic pain low back, sees pain MGT: Dr. Nayak - Compression fracture of thoracic vertebra ([facility]) - COPD (chronic obstructive pulmonary disease) ([facility]) - Depression - Diabetes mellitus ([facility]) - Diverticulosis - Essential hypertension, benign Sees Dr. Best - GERD (gastroesophageal reflux disease) - Hiatal hernia 06/24/2023 - Hyperthyroidism - Incontinence 07/07/2014 - LV (left ventricular) mural thrombus 12/01/2023 - Mixed hyperlipidemia - Obesity - Opioid dependence (HCC) 01/15/2020 In 180 as of 01/2020 per ER report from [facility]. - Palpitation - Primary cardiomyopathy (HCC) - Pulmonary emphysema (HCC) - Schatzki's ring 06/24/2023 - SVT (supraventricular tachycardia) ([facility]) - Tremor PAST SURGICAL HISTORY Procedure Laterality Date - 2D ECHO (EXEP) 01/19/2017 EF=55%, mild LVH, LA enlargement, UT and TI, Diastolic dysfunction. - 2D ECHO (EXEP) 12/18/2017 EF=55%, mild LVH, mild diastolic dysfunct, - COLONOSCOPY SCREENING 04/16/2016 mac. repeat 10 yrs - EGD W/O BRSH SPEC VARICIES INJ 04/16/2016 v - EGD [...] OVARY ALLERGIES Contrast Dye [Iodine] MEDICATIONS - HYDROcodone-acetaminop hen (NORCO) 5-325 mg per tablet Take 1 [...] (AIRSUPRA) 90-8 (more content not included)... [facility] COVID & INFLUENZA A/B & RSV PCR, ROUTINEon 05-22-2025 FLUAV RNA KAYDEN+probe Ql (Unsp spec) Not detected Not Detected [facility] FLUBV RNA KAYDEN+probe Ql (Unsp spec) Not detected Not Detected [facility] Interpretation and review of laboratory results Normal [facility] RSV A RNA KAYDEN+probe Ql (Unsp spec) Not detected Not Detected [facility] SARS-CoV-2 (COVID-19) RNA KAYDEN+probe Ql (Unsp spec) Not detected See comment [facility] Reference Range (the expected result in uninfected individuals): Not detected [facility] XR CHEST 2V FRONTAL/LATon XR CHEST [...] body. IMPRESSION: Trace right pleural effusion suspected Corporate Tax Preparer: ANNE Transcribe Date/Time: May 22 2025 11:22A Dictated by : APOLLO GORDON MD This examination was interpreted and the report reviewed and electronically signed by: APOLLO GORDON MD on May 22 2025 11:23AM EST [id number] [facility] XR Chest PA and Lateralon IMPRESSION: Trace right pleural effusion suspected Corporate Tax Preparer: ANNE Transcribe Date/Time: May 22 2025 11:22A [...] midthoracic vertebral body. DIVISION OF RADIOLOGY Provider, Patricia Martin - 05/22/2025 * * *Final Report* * [...] IMPRESSION IMPRESSION: Trace right pleural effusion suspected Corporate Tax Preparer: ANNE Transcribe Date/Time: May 22 2025 11:22A Dictated by : APOLLO GORDON MD This examination was interpreted and the report reviewed and electronically signed by: APOLLO GORDON MD on May 22 2025 11:23AM EST [facility] Radiology Study observation (narrative) [facility] XR Chest PA and LateralOrder ed By: Ccf Provider on 05-22-2025 [facility] Tele[facility] (INTMWS) MARCIA MASCORRO ([id number]) 1955 F CHT Date Time Provider Department 04/04/25 GABRIEL GALVAN During your visit today, we recorded the following information about you: Nora Crespo APRN.CNP 04/04/2025 12:46 PM Signed Urine culture results from [facility] shows e coli UTI. Infection is susceptible to Macrobid. Script sent to [facility]'s pharmacy. Please fax signed order to [facility]. Kimi Pelayo MA 04/04/2025 4:04 PM Signed Spoke with nurse at [facility] and script received and they will inform patient and give her antibiotic Kimi Pelayo MA Allergies As of Date: 04/04/2025 Noted Allergy Reaction CONTRAST DYE (IODINE) 12/20/2023 10 - Anaphylaxis Date Reviewed: 03/28/2025 Reviewed by: Nora Crespo APRN.PILOT CAPTAIN - Fully Assessed Reason for Visit: Results [95] Primary Visit Diagnosis:Acute cystitis without hematuria [N30.00] Order(s):nitrofurantoi n monohydrate and macrocrystal (MACROBID) 100 mg capsuleTake [...] 06/24/2017 Memory (more content not included)... [facility] 25(OH)D3 [facility] 2024 25-hydroxyvitamin D3 [Mass/Vol] 33.1 ng/mL Normal 31.0-80.0 [facility] Comment on above: Order Comment: Speci men Type: BLOOD SPECIMENOrdering Facility: [facility] Address: [address] [place] [address] Result Comment: Clas sification of 25 [place] Vitamin D status: Deficiency/Insufficiency: < or = 30 ng/ml. Sufficiency/Optimal Levels: 31-80 ng/mL Toxicity: > 100 ng/mL. Test performed by chemiluminescent immunoassay. Performed By: #### 1 989-3 ####[facility] LABCLIA [id number] [place] [id number] [place] CBC W Auto Differential pane l (Bld)on 03-28-2025 Basophils (Bld) [#/Vol] 0.05 10*3/uL [facility] Basophils/100 WBC (Bld) 0.7 % [facility] Differential cell count method Nom (Bld) Auto [facility] Eosinophils (Bld) [#/Vol] 0.22 10*3/uL [facility] Eosinophils/100 WBC (Bld) 3.1 % [facility] Erythrocyte distribution width (RBC) [Ratio] 13.5 % 11.5 - 15.0 % [facility] Hematocrit (Bld) [Volume fraction] 41.7 % 36.0 - 46.0 % [facility] Hemoglobin (Bld) [Mass/Vol] 13.4 g/dL 11.5 - 15.5 g/dL [facility] Immature granulocytes (Bld) [#/Vol] [facility] Immature granulocytes/100 WBC (Bld) 0.1 % [facility] Lymphocytes (Bld) [#/Vol] 2.71 10*3/uL [facility] Lymphocytes/100 WBC (Bld) 38.1 % [facility] MCH (RBC) [Entitic mass] 31.2 pg 26. 0 - 34.[address] [facility] MCHC (RBC) [Mass/Vol] 32.1 g/dL 30.5 - 36.0 g/dL [facility] MCV (RBC) [Entitic vol] 97 fL 80.0 - 100.[address] [facility] Monocytes (Bld) [#/Vol] 0.5 10*3/uL [facility] Monocytes/100 WBC (Bld) 7 % [facility] Neutrophils (Bld) [#/Vol] 3.62 10*3/uL [facility] Neutrophils/100 WBC (Bld) 51 % [facility] Nucleated RBC (Bld) [#/Vol] [facility] Nucleated RBC/100 WBC (Bld) [Ratio] 0 % /[address] [facility] Platelet mean volume (Bld) [Entitic vol] 10.5 fL 9.0 - 12.[address] [facility] Platelets (Bld) [#/Vol] 184 10*3/uL [facility] RBC (Bld) [#/Vol] 4.3 10*6/uL 3.90 - 5.20 m/uL [facility] WBC (Bld) [#/Vol] 7.11 10*3/uL [facility] Basophils (Bld) [#/Vol] 0.05 10*3/uL Normal <0.11 [facility] Comment on above: Order Comment: Speci men Type: BLOOD SPECIMENOrdering Facility: [facility] Address: [address] [place] [address] Performed By: #### 5 7021-8 ####[facility] LABCLIA [id number] [facility] [address] [place] Basophils/100 WBC (Bld) 0.7 % Normal [facility] Comment on above: Order Comment: Speci men Type: BLOOD SPECIMENOrdering Facility: [facility] Address: [address] [place] [address] Performed By: #### 5 7021-8 ####[facility] LABCLIA [id number] [place] [address] [place] Differential cell count method Nom (Bld) Auto [facility] Comment on above: Order Comment: Speci men Type: BLOOD SPECIMENOrdering Facility: [facility] Address: [address] [place] [address] Performed By: #### 5 7021-8 ####[facility] LABCLIA [id number] [place] [address] [place] Eosinophils (Bld) [#/Vol] 0.22 10*3/uL Normal <0.46 [facility] Comment on above: Order Comment: Speci men Type: BLOOD SPECIMENOrdering Facility: [facility] Address: [address] [place] [address] Performed By: #### 5 7021-8 ####[facility] LABCLIA [id number] [place] [address] [place] Eosinophils/100 WBC (Bld) 3.1 % [facility] Comment on above: Order Comment: Speci men Type: BLOOD SPECIMENOrdering Facility: [facility] Address: [address] [place] [address] Performed By: #### 5 7021-8 ####[facility] LABIA [id number] [address] [address] [place] Erythrocyte distribution width (RBC) [Ratio] 13.5 % Normal 11.5-15.0 [facility] Comment on above: Order Comment: Speci men Type: BLOOD SPECIMENOrdering Facility: [facility] Address: [address] [place] [address] Performed By: #### 5 7021-8 ####[facility] LABIA [id number] [place] [address] [place] Hematocrit (Bld) [Volume fraction] 41.7 % Normal 36.0-46.0 [facility] Comment on above: Order Comment: Speci men Type: BLOOD SPECIMENOrdering Facility: [facility] Address: [address] [place] [address] Performed By: #### 5 7021-8 ####[facility] LABIA [id number] [place] [address] [place] Hemoglobin (Bld) [Mass/Vol] 13.4 g/dL Normal 11.5-15. 5 [facility] Comment on above: Order Comment: Speci men Type: BLOOD SPECIMENOrdering Facility: [facility] Address: [address] [place] [address] Performed By: #### 5 7021-8 ####[facility] LABIA [id number] [place] [id number] [place] Immature granulocytes (Bld) [#/Vol] 10*3/uL Normal <0.10 [facility] Comment on above: Order Comment: Speci men Type: BLOOD SPECIMENOrdering Facility: [facility] Address: [address] [place] [address] Performed By: #### 5 7021-8 ####[facility] LABCLIA [id number] [place] [address] [place] Immature granulocytes/100 WBC (Bld) 0.1 % [facility] Comment on above: Order Comment: Speci men Type: BLOOD SPECIMENOrdering Facility: [facility] Address: [address] [place] [address] Performed By: #### 5 7021-8 ####[facility] LABCLIA [id number] [place] [address] [place] Lymphocytes (Bld) [#/Vol] 2.71 10*3/uL Normal 1.00-4.0 0 [facility] Comment on above: Order Comment: Speci men Type: BLOOD SPECIMENOrdering Facility: [facility] Address: [address] [place] [address] Performed By: #### 5 7021-8 ####[facility] LABIA [id number] [place] [address] [place] Lymphocytes/100 WBC (Bld) 38.1 % [facility] Comment on above: Order Comment: Speci men Type: BLOOD SPECIMENOrdering Facility: [facility] Address: [address] [place] [address] Performed By: #### 5 7021-8 ####[facility] LABIA [id number] [place] [address] [place] MCH (RBC) [Entitic mass] 31.2 pg Normal 26.0-34.0 [facility] Comment on above: Order Comment: Speci men Type: BLOOD SPECIMENOrdering Facility: [facility] Address: [address] [place] [address] Performed By: #### 5 7021-8 ####[facility] LABIA [id number] [place] [address] [place] MCHC (RBC) [Mass/Vol] 32.1 g/dL Normal 30.5-36.0 [facility] Comment on above: Order Comment: Speci men Type: BLOOD SPECIMENOrdering Facility: [facility] Address: [address] [place] [address] Performed By: #### 5 7021-8 ####[facility] LABCLIA [id number] [place] [address] [place] MCV (RBC) [Entitic vol] 97.0 fL Normal 80.0-100.0 [facility] Comment on above: Order Comment: Speci men Type: BLOOD SPECIMENOrdering Facility: [facility] Address: [address] [place] [address] Performed By: #### 5 7021-8 ####[facility] LABIA [id number] [place] [address] [place] Monocytes (Bld) [#/Vol] 0.50 10*3/uL Normal <0.87 [facility] Comment on above: Order Comment: Speci men Type: BLOOD SPECIMENOrdering Facility: [facility] Address: [address] [place] [address] Performed By: #### 5 7021-8 ####[facility] LABIA [id number] [place] [address] [place] Monocytes/100 WBC (Bld) 7.0 % Normal [facility] Comment on above: Order Comment: Speci men Type: BLOOD SPECIMENOrdering Facility: [facility] Address: [address] [place] [address] Performed By: #### 5 7021-8 ####[facility] LABIA [id number] [place] [address] [place] Neutrophils (Bld) [#/Vol] 3.62 10*3/uL Normal 1.45-7.5 0 [facility] Comment on above: Order Comment: Speci men Type: BLOOD SPECIMENOrdering Facility: [facility] Address: [address] [place] [address] Performed By: #### 5 7021-8 ####[facility] LABIA [id number] [place] [address] [place] Neutrophils/100 WBC (Bld) 51.0 % Normal [facility] Comment on above: Order Comment: Speci men Type: BLOOD SPECIMENOrdering Facility: [facility] Address: [address] [place] [address] Performed By: #### 5 7021-8 ####[facility] LABIA [id number] [place] [address] [place] Nucleated RBC (Bld) [#/Vol] 10*3/uL Normal <0.01 [facility] Comment on above: Order Comment: Speci men Type: BLOOD SPECIMENOrdering Facility: [facility] Address: [address] [place] [address] Performed By: #### 5 7021-8 ####[facility] LABIA [id number] [place] [address] [place] Nucleated RBC/100 WBC (Bld) [Ratio] 0.0 /100 WBC Normal [facility] Comment on above: Order Comment: Speci men Type: BLOOD SPECIMENOrdering Facility: [facility] Address: [address] [place] [address] Performed By: #### 5 7021-8 ####[facility] LABIA [id number] [place] [address] [place] Platelet mean volume (Bld) [Entitic vol] 10.5 fL Normal 9.0-12.7 [facility] Comment on above: Order Comment: Speci men Type: BLOOD SPECIMENOrdering Facility: [facility] Address: [address] [place] [address] Performed By: #### 5 7021-8 ####[facility] LABIA [id number] [place] [address] [place] Platelets (Bld) [#/Vol] 184 10*3/uL Normal 150-400 [facility] Comment on above: Order Comment: Speci men Type: BLOOD SPECIMENOrdering Facility: [facility] Address: [address] [place] [address] Performed By: #### 5 7021-8 ####[facility] LABIA [id number] [place] [address] [place] RBC (Bld) [#/Vol] 4.30 10*6/uL Normal 3.90-5.20 [facility] Comment on above: Order Comment: Speci men Type: BLOOD SPECIMENOrdering Facility: [facility] Address: [address] [place] [address] Performed By: #### 5 7021-8 ####[facility] LABIA [id number] [place] [address] [place] WBC (Bld) [#/Vol] 7.11 10*3/uL Normal 3.70-11.00 [facility] Comment on above: Order Comment: Speci men Type: BLOOD SPECIMENOrdering Facility: [facility] Address: [address] [place] [address] Performed By: #### 5 7021-8 ####[facility] [id number] [place] [address] [place] CNOVon 03-28-2025 CNOV Office Visit (INTMWS ) MARCIA MASCORRO ([id number]) 1955 F T Date Time Provider Department 03/28/25 11:00 AM NORA CRESPO INTMWS During your visit today, we recorded the following information about you: Pulse Respiration Blood pressure Weight 60/minute 14/minute 106/62 77.9 kg Height 1.62 m Nora Crespo APRN.CNP 03/28/2025 2:11 PM Signed SUBJECTIVE Marcia Mascorro [...] and is under the care of a structural steel painter. She is taking multiple medications, including [...] times a (more content not included)... Normal [facility]ARC[facility] MASCORRO ([id number]) 1955 F T Date Time Provider Department 03/28/25 GABRIEL GALVAN INTMWS During your visit today, we recorded the following information about you: Nora Crespo APRN.CNP 03/28/2025 1:00 PM Signed Can we please send the med list from patient's visit today to [facility]? Please call and let them know that [...] and we will prescribe her Ativan since [facility] has changed its policy and will no longer prescribe this for her. Peyton Lindo MA 03/28/2025 1:50 PM [phone] Peyton Lindo MA Allergies As of Date: 03/28/2025 Noted Allergy Reaction CONTRAST DYE (IODINE) 12/20/2023 10 - Anaphylaxis Date Reviewed: 03/28/2025 Reviewed by: Nora Crespo APRN.PILOT CAPTAIN - Fully Assessed Prescriptions as of 03/28/2025 [...] plasma metanephrines (more content not included)... [facility] Comprehensive metabolic 2000 panelon 03-28-2025 Albumin [Mass/Vol] 4.1 g/dL Normal 3.9-4.9 [facility] Comment on above: Order Comment: Speci men Type: BLOOD SPECIMENOrdering Facility: [facility] Address: [facility] [place] [address] Performed By: #### 2 4323-04, 2132-05 ####[facility] LABCLIA [id number] [address] [address] [place] ALP [Catalytic activity/Vol] 110 U/L Normal 34-123 [facility] Comment on above: Order Comment: Speci men Type: BLOOD SPECIMENOrdering Facility: [facility] Address: [address] [place] [address] Performed By: #### 2 4323-04, 2132-05 ####[facility] LABCLIA [id number] [address] [place] [address] [place] ALT [Catalytic activity/Vol] 9 U/L Normal 7-38 [facility] Comment on above: Order Comment: Speci men Type: BLOOD SPECIMENOrdering Facility: [facility] Address: [address] [place] [address] Performed By: #### 2 4323-04, 2132-05 ####[facility] LABCLIA [id number] [address] [place] [address] [place] Anion gap [Moles/Vol] 10 mmol/L Normal 8-15 [facility] Comment on above: Order Comment: Speci men Type: BLOOD SPECIMENOrdering Facility: [facility] Address: [address] [place] [address] Performed By: #### 2 4328, 2132-05 ####[facility] LABCLIA [id number] [address] [place] [address] [place] AST [Catalytic activity/Vol] 14 U/L Normal 13-35 [facility] Comment on above: Order Comment: Speci men Type: BLOOD SPECIMENOrdering Facility: [facility] Address: [address] [place], [place] [address] Performed By: #### 2 43211-12, 2132-05 ####[facility] LABCLIA [id number] [place] [address] [place] Bilirubin [Mass/Vol] 0.4 mg/dL Normal 0.2-1.3 [facility] Comment on above: Order Comment: Speci men Type: BLOOD SPECIMENOrdering Facility: [facility] Address: [address] [place] [address] Performed By: #### 2 8, 2132-05 ####[facility] LABCLIA [id number] [place] [address] [place] Calcium [Mass/Vol] 10.1 mg/dL Normal 8.5-10.2 [facility] Comment on above: Order Comment: Speci men Type: BLOOD SPECIMENOrdering Facility: [facility] Address: [address] [place] [address] Performed By: #### 2 4323-04, 2132-05 ####[facility] LABCLIA [id number] [place] [id number] [place] Chloride [Moles/Vol] 107 mmol/L Normal 98-107 [facility] Comment on above: Order Comment: Speci men Type: BLOOD SPECIMENOrdering Facility: [facility] Address: [address] [place] [address] Performed By: #### 2 4323-04, 2132-05 ####[facility] LABCLIA [id number] [place] [address] [place] CO2 [Moles/Vol] 28 mmol/L Normal 22-30 [facility] Comment on above: Order Comment: Speci men Type: BLOOD SPECIMENOrdering Facility: [facility] Address: [address] [place] [address] Performed By: #### 2 4323-8, 2132-05 ####[facility] LABIA [id number] [address] [address] [place] Creatinine [Mass/Vol] 1.00 mg/dL High 0.58-0.96 [facility] Comment on above: Order Comment: Speci men Type: BLOOD SPECIMENOrdering Facility: [facility] Address: [address] [place] [address] Performed By: #### 2 4323-8, 2132-05 ####[facility] LABS[facility] [id number] [place] [address] [place] eGFRcr SerPlBld CKD-EPI 2020 61 mL/min/1.73m??? Normal >=60 [facility] Comment on above: Order Comment: Speci men Type: BLOOD SPECIMENOrdering Facility: [facility] Address: [address] [place] [address] Result Comment: Sweta mated Glomerular Filtration Rate [...] GFR. Performed By: #### 2 4323-8, 2132-05 ####[facility] LABIA [id number] [address] [address] [place] Glucose [Mass/Vol] 107 mg/dL High 74-99 [facility] Comment on above: Order Comment: Speci men Type: BLOOD SPECIMENOrdering Facility: [facility] Address: [address] [place], [place] [address] Result Comment: The [place] Diabetes Association (ADA) provides guidance for cutoff [...] Standards of Medical Care in Diabetes 2016, [place] Diabetes Association. Diabetes Care. 2016.39(Suppl 1). Performed By: #### 2 4323-04, 2132-05 ####[facility] LABCLIA [id number] [place] [address] [place] Potassium [Moles/Vol] 4.6 mmol/L Normal 3.7-5.1 [facility] Comment on above: Order Comment: Speci men Type: BLOOD SPECIMENOrdering Facility: [facility] Address: [address] [place] [address] Performed By: #### 2 4323-04, 2132-05 ####[facility] LABCLIA [id number] [place] [address] [place] Protein [Mass/Vol] 6.5 g/dL Normal 6.3-8.0 [facility] Comment on above: Order Comment: Speci men Type: BLOOD SPECIMENOrdering Facility: [facility] Address: [address] [place] [address] Performed By: #### 2 4323-04, 2132-05 ####[facility] LABCLIA [id number] [place] [address] [place] Sodium [Moles/Vol] 145 mmol/L High 136-144 [facility] Comment on above: Order Comment: Speci men Type: BLOOD SPECIMENOrdering Facility: [facility] Address: [address] [place] [address] Performed By: #### 2 4323-04, 2132-05 ####[facility] LABCLIA [id number] [place] [address] [place] Urea nitrogen [Mass/Vol] 18 mg/dL Normal 7-21 [facility] Comment on above: Order Comment: Speci men Type: BLOOD SPECIMENOrdering Facility: [facility] Address: [address] [place] [address] Performed By: #### 2 4323-8, 2132-9 ####[facility] LABCLIA [id number] [place] [address] [place] Ferritin SerPl-mCncon 2024 Ferritin [Mass/Vol] 75.3 ng/mL Normal 14.7-205.1 [facility] Comment on above: Order Comment: Speci men Type: BLOOD SPECIMENOrdering Facility: [facility] Address: [address] [place] [address] Performed By: #### 5 0190-8, 3016-3, 69023-4, 2276-4 ####[facility] LABCLIA [id number] [place] [address] [place] HbA1c (Bld)on 03-28-2025 Average glucose Estimated from glycated hemoglobin (Bld) [Mass/Vol] 100 mg/dL [facility] Comment on above: Order Comment: Speci men Type: BLOOD SPECIMENOrdering Facility: [facility] Address: [address] [place] [address] Result Comment: eAG: (Estimated average glucose) is a calculated value from HgbA1c and is b2b outside sales representative of the average blood glucose level in the last 2-3 month period. Performed By: #### 5 5454-3 ####[facility] LABIA [id number] [place] [address] [place] HbA1c (Bld) [Mass fraction] 5.1 % Normal 4.3-5.6 [facility] Comment on above: Order Comment: Speci men Type: BLOOD SPECIMENOrdering Facility: [facility] Address: [address] [place] [address] Result Comment: [place] Diabetes Association guidelines indicate that patients with HgbA1c in the range 5.7-6.4% are at increased risk for development of diabetes, and intervention by lifestyle modification may be beneficial. HgbA1c greater or equal to 6.5% is considered diagnostic of diabetes. Performed By: #### 5 5454-3 ####[facility] LABCLIA [id number] [place] [id number] [place] Iron and Iron binding capaci ty panelon 03-28-2025 Iron [Mass/Vol] 64 ug/dL Normal 41-186 [facility] Comment on above: Order Comment: Speci men Type: BLOOD SPECIMENOrdering Facility: [facility] Address: [address] [place] [address] Performed By: #### 5 0190-8, 6-3, , 2275-12 ####[facility] LABIA [id number] [place] [id number] [place] [facility] Iron binding capacity [Mass/Vol] 258 ug/dL Normal 232-386 [facility] Comment on above: Order Comment: Speci men Type: BLOOD SPECIMENOrdering Facility: [facility] Address: [address] [place] [address] Performed By: #### 5 0190-8, 6-3, , 2275-12 ####[facility] LABIA [id number] [place] [address] [place] OF [facility] Iron/TIBC [Molar ratio] 24.8 % Normal 15.0-57.0 [facility] Comment on above: Order Comment: Speci men Type: BLOOD SPECIMENOrdering Facility: [facility] Address: [address] [place], [place] [address] Performed By: #### 5 0190-8, 6-3, , 2275-12 ####[facility] LABIA [id number] [place] [id number] [place] Magnesium SerPl-mCncon 03-28 Magnesium [Mass/Vol] 2.0 mg/dL Normal 1.7-2.3 [facility] Comment on above: Order Comment: Speci men Type: BLOOD SPECIMENOrdering Facility: [facility] Address: [address] [place] [address] Performed By: #### 5 0190-8, 3016-3, 67530-7, 2275-4 ####[facility] LABCLIA [id number] [place] [address] [place] TSH SerPl-aCncon 03-28-2025 TSH Qn 1.140 m[IU]/L Normal 0.270-4.20 0 [facility] Comment on above: Order Comment: Speci men Type: BLOOD SPECIMENOrdering Facility: [facility] Address: [address] [place] [address] Performed By: #### 5 0190-8, 3016-3, 97501-2, 2275-12 ####[facility] [id number] [place] [address] [place] Vit B12 SerPl-ncon 025 Cobalamin (Vitamin B12) [Mass/Vol] 236 pg/mL Normal 232-1245 [facility] Comment on above: Order Comment: Speci men Type: BLOOD SPECIMENOrdering Facility: [facility] Address: [address] [place] [address] Performed By: #### 2 4323-8, 2131-9 ####[facility] [id number] [place] [id number] [place] CNCOon 03-22-2025 CNCO Letter Text Normal [facility] Terri 03-13-2025 DONNAN Telephone (AGGENS4) MARCIA MASCORRO ([id number]) 1955 F CHT Date Time Provider Department 03/13/25 MARCELO BUSH4 During your visit today, we [...] OAB (overact (more content not included)... Normal [facility] CNPN Telephone (GASTPR) MARCIA MASCORRO ([id number]) 1955 F CHT Date Time Provider Department 03/13/25 MARTY BEEBE GASTPR During your visit today, we recorded the following information about you: Marty Beebe RN 03/13/2025 3:47 PM Signed Spoke with patient regarding the following information: Procedure is scheduled for ThursdayMarch 20 at 7:30am. Please arrive by 6:30am to check in at the endoscopy unit. Gastroenterology is located at desk Q31 in the [facility] ([facility]/[address] [place] [address]). Park in the [address] or use [facility] Parking. Visit [email or web address] for up-to-date visitor restrictions and mask requirements. Construction alerts and updates are available online at [email or web address] You will be receiving IV (intravenous) sedation. Your ride MUST be present upon arrival to and MUST remain on the [facility] for the duration of the procedure or [...] PLUS) 8.6-50 (more content not included)... [facility] CNOVon 02-09-2025 CNOV Office Visit (GENBMI ) MARCIA MASCORRO ([id number]) 1955 F CHT Date Time Provider Department [...] prior to repair. Grace Chaudhary MD PhD [facility] armature winder repair helper [facility] Bariatric, Foregut, and Flexible Endoscopic Surgery [facility] [address] [place] [address] GENERAL SURGERY INITIAL CONSULT NOTE SERVICE DATE: 02/09/2025 SERVICE TIME: 4:01 PM REASON FOR CONSULT: Hiatal Hernia REQUESTING PHYSICIAN: Self PRIMARY CARE PHYSICIAN: Gabriel Galvan MD Subjective Ms. Mascorro is a 69 year old female with PMHx of CAD, CHF (EF 20%), HTN, GERD, COPD, Diabetes, Retana's esophagus, who presents with abdominal pain, nausea and weight loss. Last seen with Dr. Orr in 06/2024 for hiatal hernia. Was recommended [...] as of 01/2020 per ER report from [facility]. Palpitation Primary cardiomyopathy (HCC) Pulmonary emphysema (HCC) Schatzki's ring 06/24/2023 SVT (supraventricular tachycardia) (HCC) Tremor PAST SURGICAL HISTORY Procedure Laterality Date 2D ECHO (EXEP) 01/19/2017 EF=55%, mild LVH, LA enlargement, UT and TI, Diastolic dysfunction. 2D ECHO (EXEP) [...] OF SYSTE (more content not included)... [facility] HISTORY PHYSICALon HISTORY PHYSICAL HNO ID: [id number] Author: GRACE CHAUDHARY MD, PhD Service: ? [...] prior to repair. Grace Chaudhary MD PhD [facility] armature winder repair helper [facility] Bariatric, Foregut, and Flexible Endoscopic Surgery [facility] [address] [place] [address] GENERAL SURGERY INITIAL CONSULT NOTE SERVICE DATE: 02/09/2025 SERVICE TIME: 4:01 PM REASON FOR CONSULT: Hiatal Hernia REQUESTING PHYSICIAN: Christoph PRIMARY CARE PHYSICIAN: Gabriel Galvan MD Subjective Ms. Mascorro is a 69 year old female with PMHx of CAD, CHF (EF 20%), HTN, GERD, COPD, Diabetes, Retana's esophagus, who presents with abdominal pain, nausea and weight loss. Last seen with Dr. Orr in 06/2024 for hiatal hernia. Was recommended [...] as of 01/2020 per ER report from [facility]. Palpitation Primary cardiomyopathy (HCC) Pulmonary emphysema (HCC) Schatzki's ring 06/24/2023 SVT (supraventricular tachycardia) (HCC) Tremor PAST SURGICAL HISTORY Procedure Laterality Date 2D ECHO (EXEP) 01/19/2017 EF=55%, mild LVH, LA enlargement, UT and TI, Diastolic dysfunction. 2D ECHO (EXEP) [...] perfused ABDOMEN (more content not included)... [facility] L3410.9992on 01-26-2025 [facility] Misc. COMMENT Normal . [facility] Comment on above: Order Comment: [id number] 0URINE TOXICOLOGY Result Comment: Test Ordered: [id number] Compliance Drug Analysis, UrSpecimen Comment: ToxAssure, ToxAssure FLEX or MAT drug [id number] Comment: -Technical component - Data analysis performed atSpecimen Comment: [facility] [place], [address], [place], [place]: [id number]. [phone] It Support Manager Issa Gonzales MD.Summary Report (Summary) FINAL MX Reference Range: . TOXASSURE COMP DRUG ANALYSIS,UR Test Result Flag UnitsDrug Present Lorazepam >1183 ng/mg creat Source of [...] is an expected metabolite of dextromethorphan, an gpgm-pta-xieabhy or prescription cough suppressant. Dextrorphan cannot be distinguished from the scheduled prescription medication levorphanol by the method used for analysis. Test Result Flag Units Ref Range Creatinine 169 mg/dL >=20 Declared Medications: Medication list was not provided. For clinical consultation, please call . Performed at: [facility] [address] [place] [id number] Director: Gisela [place]esma, Phone: [phone] at: [facility] [place] [id number] [place], [place] [id number] Director: Garett Patrick PhD, Phone: [phone] Performed By: #### L 3410.9992, L505.5000 ####[facility] [address] [place], [address] Amphetamine detection with 1 000 ng/mL as cutoffOrdered By: Alok Forrest on 01-18-2025 Amphetamines Screen method >1000 ng/mL Ql (U) Negative < 200 ng/mL [facility] CNPNon 01-18-2025 CNPN Telephone (GENBMI) MARCIA MASCORRO ([id number]) 1955 F CHT Date Time Provider Department 01/18/25 HELEN KEARNEYBMI During your visit today, we recorded the [...] Date Reviewed: 01/03/2025 Reviewed by: Lyndsey Acevedo APRN.CYCLE CONSULTANT - Fully Assessed Prescriptions as of 01/18/2025 [...] High catech (more content not included)... [facility] M[facility] MASCORRO ([id number]) 1955 F T Date Time Provider Department 01/18/25 SCOT MCDUFFIE During your visit today, we recorded the following information about you: Penny Medina 01/18/2025 9:13 AM Signed [phone] Chloe called from the facility where the patient resides. Chloe is trying to get patient in for a hiatal hernia referral from Dr. Tejada under sctive request. Penny Allergies As of Date: 01/18/2025 Noted Allergy Reaction CONTRAST DYE (IODINE) 12/20/2023 10 - Anaphylaxis Date Reviewed: 01/03/2025 Reviewed by: Lyndsey Acevedo APRN.CYCLE CONSULTANT - Fully Assessed Prescriptions as of 01/18/2025 [...] for breas (more content not included)... [facility] MARCIA MASCORRO ([id number]) 1955 F CHT Date Time Provider Department 01/18/25 HELEN KEARNEY [...] Date Reviewed: 01/03/2025 Reviewed by: Lyndsey Acevedo APRN.CYCLE CONSULTANT - Fully Assessed Prescriptions as of 01/18/2025 [...] [R55] 08/21/201609/07 (more content not included)... [facility] No Panel InformationOrdered By: Alok Forrest on 01-18-2025 Positive < 100 ng/mL [facility] Negative < 200 ng/mL [facility] Screening urine fentanyl gloria surementOrdered By: Alok Forrest on 01-18-2025 fentaNYL Screen Ql (U) Negative [facility] Urine Drug Screen (VISTA)on 01-18-2025 AMPHETAMINES Negative Normal <1000 ng/mL [facility] Comment on above: Order Comment: UNK Performed By: #### L 3410.9992, L505.5000 ####[facility] [address] [place], [address] BARBITIURATES Negative Normal < 200 ng/mL [facility] Comment on above: Order Comment: UNK Performed By: #### L 3410.9992, L505.5000 ####[facility] [address] [place], [address] BENZODIAZIPINE Positive Normal < 200 ng/mL [facility] Comment on above: Order Comment: UNK Result Comment: If c onfirmation testing is needed, a separate order will berequired to send out testing to the reference laboratory. Performed By: #### L 3410.9992, L505.5000 ####[facility] [address] [place], [address] BUP Ur Drug Scr Negative Normal < 200 ng/mL [facility] Comment on above: Order Comment: UNK Performed By: #### L 3410.9992, L505.5000 ####[facility] [address] [place], [address] COCAINE Negative Normal < 300 ng/mL [facility] Comment on above: Order Comment: UNK Performed By: #### L 3410.9992, L505.5000 ####[facility] [address] [place], [address] Fentanyl Negative Normal [facility] Comment on above: Order Comment: UNK Performed By: #### L 3410.9992, L505.5000 ####[facility] [address] [place], [address] METHADONE Negative Normal < 300 ng/mL [facility] Comment on above: Order Comment: UNK Performed By: #### L 3410.9992, L505.5000 ####[facility] [address] [place], [address] OPIATES Positive Normal < 300 ng/mL [facility] Comment on above: Order Comment: UNK Result Comment: If c onfirmation testing is needed, a separate order will berequired to send out testing to the reference laboratory. Performed By: #### L 3410.9992, L505.5000 ####[facility] [address] [place], [address] OXYCODONE Positive Normal < 100 ng/mL [facility] Comment on above: Order Comment: UNK Result Comment: If c onfirmation testing is needed, a separate order will berequired to send out testing to the reference laboratory. Performed By: #### L 3410.9992, L505.5000 ####[facility] [address] [place], [address] PCP Negative Normal < 25 ng/mL [facility] Comment on above: Order Comment: UNK Performed By: #### L 3410.9992, L505.5000 ####[facility] [address] [place], [address] THC Negative Normal < 50 ng/mL [facility] Comment on above: Order Comment: UNK Performed By: #### L 3410.9992, L505.5000 ####[facility] [address] [place], [address] Urine phencyclidine (PCP) de tectionOrdered By: Alok Forrest on 01-18-2025 Phencyclidine Ql (U) Negative < 25 ng/mL [facility] CNPNon 01-17-2025 [facility] Telephone (INTMWS) MARCIA MASCORRO ([id number]) 1955 F T Date Time Provider Department 01/17/25 GABRIEL GALVAN INTMWS During your visit today, we recorded the following information about you: Jose AlejandroAvelinaMARGO 01/17/2025 10:00 AM Signed Daughter contacted to [...] Date Reviewed: 01/03/2025 Reviewed by: Lyndsey Acevedo APRN.CYCLE CONSULTANT - Fully Assessed Reason for Visit: Appointment [...] High cat (more content not included)... [facility] Gastroenterology Visit Repor ton 01-13-2025 Gastroenterology Visit Report Normal [facility] CNPAdeline 01-12-2025 [facility] Telephone (INTMWS) MARCIA MASCORRO ([id number]) 1955 F CHT Date Time Provider Department 01/12/25 GABRIEL GALVAN INTMWS During your visit today, we recorded the following information about you: Rula Hernandez, WENDY 01/12/2025 3:24 PM Signed Regina with Palliative [...] to notify Cadis of provider response is [phone]. WENDY Lucas Liza D, MD 01/19/2025 2:53 [...] checked urine tox screen at Assisted Living? Edilia Paige RN 01/19/2025 3:13 PM Signed Called and left a voicemail for Regina APRON MAN with Palliative Care to call back and ask for a nurse to receive the providers message. WENDY Condon Amanda, WENDY 01/20/2025 1:59 PM Signed Regina APRON MAN with Palliative Care called and is notified [...] know to try and get in with [facility] or [facility]. She said she just wanted to [...] term refill when was in transition from PSYCHIATRIC to [facility]. She should get this med from psych provider as noted--would hope she can get an appointment soon so would be able to get anxiety treated whether staying on lorazepam or other med adjustments. Will Palliative Care be helping patient get established with a provider? Or do we need to help with that? Edilia Paige RN 01/21/2025 9:34 AM Signed Called and left a voicemail for Regina APRON MAN with Palliative Care to call back and ask for a nurse to receive the providers message. WENDY Condon Julia, LPN 01/24/2025 10:44 AM Signed 2nd message left asking Regina to return call and speak with a nurse. Allergies As of Date: 01/12/2025 Noted Allergy Reaction CONTRAST DYE (IODINE) 12/20/2023 10 - Anaphylaxis Date Reviewed: 01/03/2025 Reviewed by: Lyndsey Acevedo APRN.CYCLE CONSULTANT - Fully Assessed Reason for Visit: Patient Update [1234] Primary Visit Diagnosis:Anxiety [F41.9] Order(s):CONS[facility] [25600850] Order #: [id number]: [id number] Prescriptions as of 02/03/2025 - DULoxetine [...] by mouth (more content not included)... [facility] Absolute lymphocyte countOrd ered By: Javon Reyes on 01-10-2025 Lymphocytes Auto (Unsp spec) [#/Vol] 2.04 10*3/uL 0.83-4.51 [facility] Absolute neutrophil countOrd ered By: Javon Reyes on 01-10-2025 Neutrophils (Bld) [#/Vol] 3.0 10*3/uL 2.0-7.7 [facility] Anion gap in Serum or Plasma Ordered By: Javon Reyes on 01-10-2025 Anion gap [Moles/Vol] 8 mmol/L 5-15 [facility] Automated lymphocyte count a s percentage of total leukocytesOrdered By: Javon Reyes on 01-10-2025 Lymphocytes/100 WBC Auto (Unsp spec) 35.8 % 19-41 [facility] BUN/creatinine ratioOrdered By: Javon Reyes on 01-10-2025 Urea nitrogen/Creatinine [Mass ratio] 13.3 mg/mg 10-20 [facility] Basophil percentageOrdered B y: Javon Reyes on 01-10-2025 Basophils/100 WBC (Bld) 0.5 % 0-1 [facility] Bilirubin Test strip Ql (U)O rdered By: Javon Reyes on 01-10-2025 Bilirubin Ql (U) Negative Negative [facility] Bilirubin, totalOrdered By: Javon Reyes on 01-10-2025 Bilirubin [Mass/Vol] 0.36 mg/dL 0.00-1.30 [facility] CBC W/Diff, Automatedon Absolute Lymph 2.04 X10 3/uL Normal 0.83-4.51 [facility] Comment on above: Performed By: #### L 100.0100, L500.4050 ####[facility] [address] [place], [address] Absolute Neut 3.0 X10 3/uL Normal 2.0-7.7 [facility] Comment on above: Performed By: #### L 100.0100, L500.4050 ####[facility] [address] [place], [address] Basophils/100 WBC (Bld) 0.5 % Normal 0-1 [facility] Comment on above: Performed By: #### L 100.0100, L500.4050 ####[facility] [address] [place], [address] Eosinophils/100 WBC (Bld) 3.2 % Normal 0-5 [facility] Comment on above: Performed By: #### L 100.0100, L500.4050 ####[facility] [address] [place], [address] Erythrocyte distribution width (RBC) [Ratio] 13.2 % Normal 11.6-14.6 [facility] Comment on above: Performed By: #### L 100.0100, L500.4050 ####[facility] [address] [place], [address] Hematocrit (Bld) [Volume fraction] 41.6 % Normal 37-47 [facility] Comment on above: Performed By: #### L 100.0100, L500.4050 ####[facility] [address] [place], [address] Hemoglobin (Bld) [Mass/Vol] 13.7 g/dL Normal 12.0-15. 0 [facility] Comment on above: Performed By: #### L 100.0100, L500.4050 ####[facility] [address] [place], [address] IG% 0.200 Normal 0.0-0.9 [facility] Comment on above: Result Comment: IG% - Immature Granulocytes (promyelocytes, myelocytes andmetamyelocytes) > 1% indicates that a LEFT SHIFT is Present. Performed By: #### L 100.0100, L500.4050 ####[facility] [address] [place], [address] Lymphocytes/100 WBC (Bld) 35.8 % Normal 19-41 [facility] Comment on above: Performed By: #### L 100.0100, L500.4050 ####[facility] [address] [place], [address] MCH (RBC) [Entitic mass] 32.2 pg High 27.0-32.0 [facility] Comment on above: Performed By: #### L 100.0100, L500.4050 ####[facility] [address] [place], [address] MCHC (RBC) [Mass/Vol] 32.9 g/dL Normal 32-36 [facility] Comment on above: Performed By: #### L 100.0100, L500.4050 ####[facility] [address] [place], [address] MCV (RBC) [Entitic vol] 97.7 fL Normal 81-99 [facility] Comment on above: Performed By: #### L 100.0100, L500.4050 ####[facility] [address] [place], [address] Monocytes/100 WBC (Bld) 8.2 % Normal 0-10 [facility] Comment on above: Performed By: #### L 100.0100, L500.4050 ####[facility] [address] [place], [address] Neutrophils/100 WBC (Bld) 52.1 % Normal 47-70 [facility] Comment on above: Performed By: #### L 100.0100, L500.4050 ####[facility] [address] [place], [address] Nucleated RBC (Bld) [#/Vol] 0 10*3/uL Normal 0-5 [facility] Comment on above: Performed By: #### L 100.0100, L500.4050 ####[facility] [address] [place], [address] Platelet mean volume (Bld) [Entitic vol] 9.9 fL Normal 6.2-12.0 [facility] Comment on above: Performed By: #### L 100.0100, L500.4050 ####[facility] [address] [place], [address] Platelets (Bld) [#/Vol] 188 10*3/uL Normal 150-450 [facility] Comment on above: Performed By: #### L 100.0100, L500.4050 ####[facility] [address] [place], [address] RBC (Bld) [#/Vol] 4.26 10*6/uL Normal 4.2-5.4 [facility] Comment on above: Performed By: #### L 100.0100, L500.4050 ####[facility] [address] [place], [address] RDW SD 47.3 fl High 35.1-43.9 [facility] Comment on above: Performed By: #### L 100.0100, L500.4050 ####[facility] [address] [place], [address] WBC (Bld) [#/Vol] 5.7 10*3/uL Normal 4.4-11.0 [facility] Comment on above: Performed By: #### L 100.0100, L500.4050 ####[facility] [address] [place], [address] Terri 01-10-2025 [facility] Telephone (INTMWS) MARCIA MASCORRO ([id number]) 1955 F T Date Time Provider Department 01/10/25 LYNDSEY ACEVEDO INTMWS During your visit today, we recorded the following information about you: Lyndsey Acevedo APRN.CYCLE CONSULTANT 01/10/2025 3:44 PM Signed I have a form from [employer] form on my desk. Is she currently [...] Date Reviewed: 01/03/2025 Reviewed by: Lyndsey Acevedo APRN.CYCLE CONSULTANT - Fully Assessed Reason for Visit: Forms [913] Cmt: [facility] assisted living form Prescriptions as of 01/12/2025 [...] Near syncope (more content not included)... [facility] Carbon dioxide, total [Moles /volume] in Central venous bloodOrdered By: Javon Reyes on 01-10-2025 CO2 [Moles/Vol] 29.1 mmol/L 21.0-32.0 [facility] Chloride assayOrdered By: Ashvin Reyes on 01-10-2025 Chloride [Moles/Vol] 102 mmol/L 98-108 [facility] Comprehensive Metabolic Prof ilon 01-10-2025 Albumin [Mass/Vol] 3.7 g/dL Normal 3.4-4.8 [facility] Comment on above: Performed By: #### L 100.0100, L500.4050 ####[facility] [address] [place], [address] Albumin/Globulin [Mass ratio] 1.3 {ratio} Normal 0.9-2.4 [facility] Comment on above: Performed By: #### L 100.0100, L500.4050 ####[facility] [address] [place], [address] ALK PHOS 100 U/L Normal 35-104 [facility] Comment on above: Performed By: #### L 100.0100, L500.4050 ####[facility] [address] [place], [address] ALT [Catalytic activity/Vol] 6 U/L Normal <=34 [facility] Comment on above: Performed By: #### L 100.0100, L500.4050 ####[facility] [address] [place], [address] AST [Catalytic activity/Vol] 15 U/L Normal <=31 [facility] Comment on above: Performed By: #### L 100.0100, L500.4050 ####[facility] [address] [place], [address] Bilirubin [Mass/Vol] 0.36 mg/dL Normal 0.00-1.30 [facility] Comment on above: Performed By: #### L 100.0100, L500.4050 ####[facility] [address] [place], [address] BUN/CRE 13.3 RATIO Normal 10-20 [facility] Comment on above: Performed By: #### L 100.0100, L500.4050 ####[facility] [address] [place], [address] Calcium [Mass/Vol] 9.5 mg/dL Normal 7.6-11.0 [facility] Comment on above: Performed By: #### L 100.0100, L500.4050 ####[facility] [address] [place], [address] Chloride [Moles/Vol] 102 mmol/L Normal 98-108 [facility] Comment on above: Performed By: #### L 100.0100, L500.4050 ####[facility] [address] [place], [address] CO2 [Moles/Vol] 29.1 mmol/L Normal 21.0-32.0 [facility] Comment on above: Performed By: #### L 100.0100, L500.4050 ####[facility] [address] [place], [address] Creatinine [Mass/Vol] 0.80 mg/dL Normal 0.70-1.20 [facility] Comment on above: Performed By: #### L 100.0100, L500.4050 ####[facility] [address] [place], [address] ECRCL 66.30 ml/min Normal 50-250 [facility] Comment on above: Performed By: #### L 100.0100, L500.4050 ####[facility] [address] [place], [address] GAP 8 Normal 5-15 [facility] Comment on above: Performed By: #### L 100.0100, L500.4050 ####[facility] [address] [place], [address] GFR/1.73 sq M.predicted among non-blacks MDRD (S/P/Bld) [Vol rate/Area] 80 mL/min/{1.73_m2} Normal >60 [facility] Comment on above: Result Comment: mL/m in/1.73m2 CKD-EPI Creatinine Equation (2020) Performed By: #### L 100.0100, L500.4050 ####[facility] [address] [place], [address] Globulin (S) [Mass/Vol] 2.9 g/dL Normal 2.2-4.2 [facility] Comment on above: Performed By: #### L 100.0100, L500.4050 ####[facility] [address] [place], [address] Glucose [Mass/Vol] 94 mg/dL Normal 70-99 [facility] Comment on above: Performed By: #### L 100.0100, L500.4050 ####[facility] [address] [place], [address] Potassium [Moles/Vol] 4.2 mmol/L Normal 3.3-5.1 [facility] Comment on above: Performed By: #### L 100.0100, L500.4050 ####[facility] [address] [place], [address] Sodium [Moles/Vol] 140 mmol/L Normal 133-145 [facility] Comment on above: Performed By: #### L 100.0100, L500.4050 ####[facility] [address] [place], [address] T PROT 6.6 g/dL Normal 5.9-8.4 [facility] Comment on above: Performed By: #### L 100.0100, L500.4050 ####[facility] [address] [place], [address] Urea nitrogen [Mass/Vol] 11 mg/dL Normal 4-19 [facility] Comment on above: Performed By: #### L 100.0100, L500.4050 ####[facility] [address] [place], [address] Emergency Department Summary on 01-10-2025 Emergency Department Summary Normal [facility] Eosinophil percentageOrdered By: Javon Reyes on 01-10-2025 Eosinophils/100 WBC (Bld) 3.2 % 0-5 [facility] Epithelial cells.squamous LM Ql (Urine sed)Ordered By: Javon Reyes on 01-10-2025 Epithelial cells.squamous LM.HPF (Urine sed) [#/Area] 0 /[HPF] 5-10 [facility] Erythrocyte distribution wid th (RBC) [Ratio]Ordered By: Javon Reyes on 01-10-2025 Erythrocyte distribution width (RBC) [Entitic vol] 47.3 fL High 35.1-43.9 [facility] Erythrocyte distribution wid th ratioOrdered By: Javon Reyes on 01-10-2025 Erythrocyte distribution width (RBC) [Ratio] 13.2 % 11.6-14.6 [facility] Erythrocyte distribution wid th standard deviationOrdered By: Javon Reyes on 01-10-2025 Erythrocyte distribution width (RBC) [Ratio] 47.3 fl High 35.1-43.9 [facility] Estimation of creatinine pietro aranceOrdered By: Javon Reyes on 01-10-2025 Estimated Creatinine Clearance Calc 66.30 ml/min 50-250 [facility] GFR/1.73 sq M.predicted gabbi g non-blacks MDRD (S/P/Bld) [Vol rate/Area]Ordered By: Javon Reyes on 01-10-2025 Estimated GFR (MDRD) Non-Af Amer 80 >60 [facility] Comment on above: mL/min/1.73m2 CKD-EP I Creatinine Equation (2020) Glomerular filtration rate ( GFR) estimation/1.73 sq m using serum, plasma, or whole bOrdered By: Javon Reyes on 01-10-2025 GFR/1.73 sq M.predicted among non-blacks MDRD (S/P/Bld) [Vol rate/Area] 80 mL/min/{1.73_m2} >60 [facility] Glucose Ql (U)Ordered By: Ashvin Reyes on 01-10-2025 Urine Glucose (UA) Normal mg/dl Normal [facility] Hematocrit Auto (Bld) [Volum e fraction]Ordered By: Javon Reyes on 01-10-2025 Hematocrit (Bld) [Volume fraction] 41.6 % 37-47 [facility] Hemoglobin measurementOrdere d By: Javon Reyes on 01-10-2025 Hemoglobin (Bld) [Mass/Vol] 13.7 g/dL 12.0-15. 0 [facility] Immature granulocytes/100 WB C Auto (Bld)Ordered By: Javon Reyes on 01-10-2025 Immature granulocytes/100 WBC (Bld) 0.200 % 0.0-0.9 [facility] Comment on above: IG% - Immature Granu locytes (promyelocytes, myelocytes and metamyelocytes) > 1% indicates that a LEFT SHIFT is Present. Ketones Test strip Ql (U)Ord ered By: Javon Reyes on 01-10-2025 Ketones Ql (U) Negative Negative [facility] Laboratory - Chemistry and C hemistry - challengeOrdered By: Javon Reyes on 01-10-2025 AST [Catalytic activity/Vol] 15 U/L <32 [facility] Lymphocytes Auto (Unsp spec) [#/Vol]Ordered By: Javon Reyes on 01-10-2025 Lymphocytes (Bld) [#/Vol] 2.04 10*3/uL 0.83-4.5 1 [facility] Lymphocytes/100 WBC Auto (Un sp spec)Ordered By: Javon Reyes on 01-10-2025 Lymphocytes/100 WBC (Bld) 35.8 % 19-41 [facility] MCV (mean corpuscular volume ) determinationOrdered By: Javon Reyes on 01-10-2025 MCV (RBC) [Entitic vol] 97.7 fL 81-99 [facility] Mean corpuscular hemoglobin (MCH) determinationOrdered By: Javon Reyes on 01-10-2025 MCH (RBC) [Entitic mass] 32.2 pg High 27.0-32.0 [facility] Mean corpuscular hemoglobin concentration (MCHC) determinationOrdered By: Javon Reyes on 01-10-2025 MCHC (RBC) [Mass/Vol] 32.9 g/dL 32-36 [facility] Mean platelet volume determi nationOrdered By: Javon Reyes on 01-10-2025 Platelet mean volume (Bld) [Entitic vol] 9.9 fL 6.2-12.0 [facility] Microscopic analysis of urin e for red blood cells (RBC)Ordered By: Javon Reyes on 01-10-2025 Urine RBC 0 SEEN /hpf 0-5 [facility] Monocyte percentageOrdered B y: Javon Reyes on 01-10-2025 Monocytes/100 WBC (Bld) 8.2 % 0-10 [facility] Mucus LM Ql (Urine sed)Order ed By: Javon Reyes on 01-10-2025 Mucus Ql (Urine sed) 0 SEEN /hpf [facility] Neutrophil percentageOrdered By: Javon Reyes on 01-10-2025 Neutrophils/100 WBC (Bld) 52.1 % 47-70 [facility] Nitrite Test strip Ql (U)Ord ered By: Javon Reyes on 01-10-2025 Nitrite Ql (U) Negative Negative [facility] No Panel InformationOrdered By: Javon Reyes on 01-10-2025 15 U/L <32 [facility] Nucleated red blood cell per centageOrdered By: Javon Reyes on 01-10-2025 Nucleated RBC/100 WBC (Bld) [Ratio] 0 % 0-5 [facility] Platelet countOrdered By: Ashvin Reyes on 01-10-2025 Platelets (Bld) [#/Vol] 188 10*3/uL 150-450 [facility] Potassium (Unsp spec) [Mass/ Vol]Ordered By: aJvon Reyes on 01-10-2025 Potassium [Moles/Vol] 4.2 mmol/L 3.3-5.1 [facility] Potassium measurement (mass/ volume)Ordered By: Javon Reyes on 01-10-2025 Potassium (Unsp spec) [Mass/Vol] 4.2 mmol/L 3.3-5.1 [facility] Protein Test strip Ql (U)Ord ered By: Javon Reyes on 01-10-2025 Protein Ql (U) 30 mg/dl High Negative [facility] RBC Auto (Bld) [#/Vol]Ordere d By: Javon Reyes on 01-10-2025 RBC (Bld) [#/Vol] 4.26 10*6/uL 4.2-5.4 [facility] Serum creatinine measurement (mass/volume)Ordered By: Javon Reyes on 01-10-2025 Creatinine [Mass/Vol] 0.80 mg/dL 0.70-1.20 [facility] Serum globulin measurementOr dered By: Javon Reyes on 01-10-2025 Globulin (S) [Mass/Vol] 2.9 g/dL 2.2-4.2 [facility] Serum glucose measurement (m ass/volume)Ordered By: Javon Reyes on 01-10-2025 Glucose [Mass/Vol] 94 mg/dL 70-99 [facility] Serum or plasma alanine smith otransferase (ALT) measurementOrdered By: Javon Reyes on 01-10-2025 ALT [Catalytic activity/Vol] 6 U/L <35 [facility] Serum or plasma albumin areli urement (mass/volume)Ordered By: Javon Reyes on 01-10-2025 Albumin [Mass/Vol] 3.7 g/dL 3.4-4.8 [facility] Serum or plasma albumin/glob ulin mass ratioOrdered By: Javon Reyes on 01-10-2025 Albumin/Globulin [Mass ratio] 1.3 {ratio} 0.9-2.4 [facility] Serum or plasma alkaline abimael sphatase measurementOrdered By: Javon Reyes on 01-10-2025 ALP [Catalytic activity/Vol] 100 U/L 35-104 [facility] Serum or plasma calcium areli urement (mass/volume)Ordered By: Javon Reyes on 01-10-2025 Calcium [Mass/Vol] 9.5 mg/dL 7.6-11.0 [facility] Serum or plasma urea nitroge n measurement (mass/volume)Ordered By: Javon Reyes on 01-10-2025 Urea nitrogen [Mass/Vol] 11 mg/dL 4-19 [facility] Sodium levelOrdered By: Javon Reyes on 01-10-2025 Sodium [Moles/Vol] 140 mmol/L 133-145 [facility] Squamous epithelial cells de tection in urine sediment by light microscopyOrdered By: Javon Reyes on 01-10-2025 Epithelial cells.squamous LM Ql (Urine sed) 0-5 SEEN /hpf 5-10 [facility] Total proteinOrdered By: Glenn Reyes on 01-10-2025 Protein [Mass/Vol] 6.6 g/dL 5.9-8.4 [facility] Urinalysis, Completeon 01-10 EPI,SQUAMOUS 0-5 SEEN Normal 5-10 [facility] Comment on above: Order Comment: CLEAN CATCH Performed By: #### L 400.0001 ####[facility] [address] [place], [address] WBC 0-5 SEEN Normal 0-5 [facility] Comment on above: Order Comment: CLEAN CATCH Performed By: #### L 400.0001 ####[facility] [address] [place], [address] BACTERIA 0 SEEN Normal None Seen [facility] Comment on above: Order Comment: CLEAN CATCH Performed By: #### L 400.0001 ####[facility] [address] [place], [address] Mucus Ql (Urine sed) 0 SEEN Normal [facility] Comment on above: Order Comment: CLEAN CATCH Performed By: #### L 400.0001 ####[facility] [address] [place], [address] RBC 0 SEEN Normal 0-5 [facility] Comment on above: Order Comment: CLEAN CATCH Performed By: #### L 400.0001 ####[facility] [address] [place], [address] Urine blood detectionOrdered By: Javon Reyes on 01-10-2025 Urine Occult Blood Negative Negative [facility] Urine clarityOrdered By: Glenn Reyes on 01-10-2025 Clarity (U) Clear Clear [facility] Urine color determinationOrd ered By: Javon Reyes on 01-10-2025 Color (U) Yellow Yellow [facility] Urine glucose detectionOrder ed By: Javon Reyes on 01-10-2025 Glucose Ql (U) Normal mg/dl Normal [facility] Urine leukocyte esterase det ection by dipstickOrdered By: Javon Reyes on 01-10-2025 Leukocyte esterase Test strip Ql (U) Negative Negative [facility] Urine pHOrdered By: Javon mir on 01-10-2025 pH (U) 6.0 [pH] 5.0 - 8.0 [facility] Urine sediment bacteria coun t by microscopy (number/high power field)Ordered By: Javon Reyes on 01-10-2025 Bacteria LM.HPF (Urine sed) [#/Area] 0 /[HPF] None Seen [facility] Urine specific gravity measu rementOrdered By: Javon Reyes on 01-10-2025 Specific gravity (U) [Rel density] 1.020 1.002-1.03 0 [facility] Urine urobilinogen measureme ntOrdered By: Javon Reyes on 01-10-2025 Urobilinogen Ql (U) 1 mg/dl High Normal [facility] Urobilinogen Ql (U)Ordered B y: Javon Reyes on 01-10-2025 Urobilinogen (U) [Mass/Vol] 1 mg/dL High Normal [facility] White blood cell (WBC) count Ordered By: Javon Reyes on 01-10-2025 WBC (Bld) [#/Vol] 5.7 10*3/uL 4.4-11.0 [facility] White blood cell countOrdere d By: Javon Reyes on 01-10-2025 Urine WBC 0-5 SEEN /hpf 0-5 [facility] White blood cell count 0-5 SEEN /hpf 0-5 [facility] Bacteria Ur Culton Bacteria identified Cx Nom (U) ORGANISM ID: 1 50,000-<100,000 CFU/ml Normal urogenital yasmani [facility] Comment on above: Performed By: #### 6 30-4 ####[facility] LABCLIA [id number] [address] [place] CNOVon 01-03-2025 CNOV Office Visit (INTMWS ) MARCIA MASCORRO ([id number]) 1955 F T Date Time Provider Department 01/03/25 1:20 PM LYNDSEY ACEVEDO During your visit today, we recorded the following information about you: Pulse Respiration Blood pressure Weight 77/minute 16/minute 111/77 82 kg Lyndsey Acevedo APRN.CYCLE CONSULTANT 01/03/2025 2:51 PM Signed Subjective Patient ID: Marcia is a 69 year old female who presents for Hospital F/U. HPI She was seen at [facility] on December 20, 2024 for shortness of breath. She was also seen at [facility] on December 30 for abdominal pain. She was seen at [facility] -15 for shortness of breath. She presented with [...] think, to refer her [facility] to [facility] to be seen by Dr. Mcduffie. [...] yet seen the recommended specialist at the [facility]. Renal Concerns: - Reports foamy urine [...] 3 L/min. 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 ROS Constitutional: (no entries) Head: (no entries) Eyes: (no entries) Ears/Nose/Mouth/Throat : (no entries) Neck: (no entries) Cardiovascular: (no [...] dry. Ne (more content not included)... [facility] UA DIP, URINE (POC)on 2024 BILIRUBIN UA (POCT) Small Abnormal Negative [facility] CLARITY UA (POCT) Clear [facility] COLOR UA (POCT) Yellow [facility] GLUCOSE UA (POCT) Negative Negative mg/dL [facility] Hemoglobin Ql (U) Negative Negative [facility] Interpretation and review of laboratory results Abnormal [facility] KETONE UA (POCT) Trace Negative mg/dL [facility] LEUKOCYTES UA (POCT) Negative Negative [facility] NITRITE UA (POCT) Negative Negative [facility] PH UA (POCT) 5.5 4.5 - 8.0 [facility] Protein Ql (U) Trace Abnormal Negative mg/dL [facility] SPECIFIC GRAVITY UA (POCT) 1.025 1 .005 - 1.030 [facility] UROBILINOGEN UA (POCT) 1 Ashley l E.U./dL [facility] Location:[address], [place], [place], [id number] [place] [address] [facility] Abdomen/Pelvis without Conto n 12-30-2024 Abdomen/Pelvis without Cont Normal [facility] Absolute lymphocyte countOrd ered By: Waqas Hart on 12-30-2024 Lymphocytes Auto (Unsp spec) [#/Vol] 2.64 10*3/uL 0.83-4.51 [facility] Absolute neutrophil countOrd ered By: Waqas Hart on 12-30-2024 Neutrophils (Bld) [#/Vol] 4.7 10*3/uL 2.0-7.7 [facility] Anion gap in Serum or Plasma Ordered By: Waqas Hart on 12-30-2024 Anion gap [Moles/Vol] 9 mmol/L 5- [facility] Automated lymphocyte count a s percentage of total leukocytesOrdered By: Waqas Hart on 12-30-2024 Lymphocytes/100 WBC Auto (Unsp spec) 32.5 % - [facility] BUN/creatinine ratioOrdered By: Waqas Hart on 12-30-2024 Urea nitrogen/Creatinine [Mass ratio] 16.3 mg/mg 10- [facility] Basophil percentageOrdered B y: Waqas Hart on 12-30-2024 Basophils/100 WBC (Bld) 0.6 % 0-1 [facility] Bilirubin Test strip Ql (U)O rdered By: Waqas Hart on 12-30-2024 Bilirubin Ql (U) Negative Negative [facility] Bilirubin, totalOrdered By: Waqas Hart on 12-30-2024 Bilirubin [Mass/Vol] 0.30 mg/dL 0.00-1.30 [facility] CBC W/Diff, Automatedon 12-07 Absolute Lymph 2.64 X10 3/uL Normal 0.83-4.51 [facility] Comment on above: Performed By: #### L 501.2450, L500.4050, L100.0100 ####[facility] [address] [place], [address] Absolute Neut 4.7 X10 3/uL Normal 2.0-7.7 [facility] Comment on above: Performed By: #### L 501.2450, L500.4050, L100.0100 ####[facility] [address] [place], [address] Basophils/100 WBC (Bld) 0.6 % Normal 0-1 [facility] Comment on above: Performed By: #### L 501.2450, L500.4050, L100.0100 ####[facility] [address] [place], [address] Eosinophils/100 WBC (Bld) 1.7 % Normal 0-5 [facility] Comment on above: Performed By: #### L 501.2450, L500.4050, L100.0100 ####[facility] [address] [place], [address] Erythrocyte distribution width (RBC) [Ratio] 13.1 % Normal 11.6-14.6 [facility] Comment on above: Performed By: #### L 501.2450, L500.4050, L100.0100 ####[facility] [address] [place], [address] Hematocrit (Bld) [Volume fraction] 41.1 % Normal 37-47 [facility] Comment on above: Performed By: #### L 501.2450, L500.4050, L100.0100 ####[facility] [address] [place], [address] Hemoglobin (Bld) [Mass/Vol] 13.2 g/dL Normal 12.0-15. 0 [facility] Comment on above: Performed By: #### L 501.2450, L500.4050, L100.0100 ####[facility] [address] [place], [address] IG% 0.400 Normal 0.0-0.9 [facility] Comment on above: Result Comment: IG% - Immature Granulocytes (promyelocytes, myelocytes andmetamyelocytes) > 1% indicates that a LEFT SHIFT is Present. Performed By: #### L 501.2450, L500.4050, L100.0100 ####[facility] [address] [place], [address] Lymphocytes/100 WBC (Bld) 32.5 % Normal 19-41 [facility] Comment on above: Performed By: #### L 501.2450, L500.4050, L100.0100 ####[facility] [address] [place], [address] MCH (RBC) [Entitic mass] 31.7 pg Normal 27.0-32.0 [facility] Comment on above: Performed By: #### L 501.2450, L500.4050, L100.0100 ####[facility] [address] [place], [address] MCHC (RBC) [Mass/Vol] 32.1 g/dL Normal 32-36 [facility] Comment on above: Performed By: #### L 501.2450, L500.4050, L100.0100 ####[facility] [address] [place], [address] MCV (RBC) [Entitic vol] 98.6 fL Normal 81-99 [facility] Comment on above: Performed By: #### L 501.2450, L500.4050, L100.0100 ####[facility] [address] [place], [address] Monocytes/100 WBC (Bld) 6.9 % Normal 0-10 [facility] Comment on above: Performed By: #### L 501.2450, L500.4050, L100.0100 ####[facility] [address] [place], [address] Neutrophils/100 WBC (Bld) 57.9 % Normal 47-70 [facility] Comment on above: Performed By: #### L 501.2450, L500.4050, L100.0100 ####[facility] [address] [place], [address] Nucleated RBC (Bld) [#/Vol] 0 10*3/uL Normal 0-5 [facility] Comment on above: Performed By: #### L 501.2450, L500.4050, L100.0100 ####[facility] [address] [place], [address] Platelet mean volume (Bld) [Entitic vol] 9.7 fL Normal 6.2-12.0 [facility] Comment on above: Performed By: #### L 501.2450, L500.4050, L100.0100 ####[facility] [address] [place], [address] Platelets (Bld) [#/Vol] 208 10*3/uL Normal 150-450 [facility] Comment on above: Performed By: #### L 501.2450, L500.4050, L100.0100 ####[facility] [address] [place], [address] RBC (Bld) [#/Vol] 4.17 10*6/uL Low 4.2-5.4 [facility] Comment on above: Performed By: #### L 501.2450, L500.4050, L100.0100 ####[facility] [address] [place], [address] RDW SD 47.3 fl High 35.1-43.9 [facility] Comment on above: Performed By: #### L 501.2450, L500.4050, L100.0100 ####[facility] [address] [place], [address] WBC (Bld) [#/Vol] 8.1 10*3/uL Normal 4.4-11.0 [facility] Comment on above: Performed By: #### L 501.2450, L500.4050, L100.0100 ####[facility] [address] [place], [address] Terri 12-30-2024 RAMO Telephone (INTMWS) MARCIA MASCORRO ([id number]) 1955 F CHT Date Time Provider Department 12/30/24 GABRIEL GALVAN During your visit today, we [...] Fully Assessed Reason for Visit: Patient Request [[id number]] Prescriptions as of 12/30/2024 - albuterol-budesonide HFA [...] wellness visit, subsequent [Z00*06/24/2017 09/23/2022 Tremor [R25.1] more content not included)... [facility] Carbon dioxide, total [Moles /volume] in Central venous bloodOrdered By: Waqas Hart on 12-30-2024 CO2 [Moles/Vol] 29.7 mmol/L 21.0-32.0 [facility] Chest 1 View (Portable)on Chest 1 View (Portable) Normal [facility] Chloride assayOrdered By: Kiet Hart on 12-30-2024 Chloride [Moles/Vol] 103 mmol/L 98-108 [facility] Comprehensive Metabolic Prof ilon 12-30-2024 Albumin [Mass/Vol] 3.8 g/dL Normal 3.4-4.8 [facility] Comment on above: Performed By: #### L 501.2450, L500.4050, L100.0100 ####[facility] [address] [place], [address] Albumin/Globulin [Mass ratio] 1.3 {ratio} Normal 0.9-2.4 [facility] Comment on above: Performed By: #### L 501.2450, L500.4050, L100.0100 ####[facility] [address] [place], [address] ALK PHOS 97 U/L Normal 35-104 [facility] Comment on above: Performed By: #### L 501.2450, L500.4050, L100.0100 ####[facility] [address] [place], [address] ALT [Catalytic activity/Vol] 6 U/L Normal <=34 [facility] Comment on above: Performed By: #### L 501.2450, L500.4050, L100.0100 ####[facility] [address] [place], [address] AST [Catalytic activity/Vol] 16 U/L Normal <=31 [facility] Comment on above: Performed By: #### L 501.2450, L500.4050, L100.0100 ####[facility] [address] [place], [address] Bilirubin [Mass/Vol] 0.30 mg/dL Normal 0.00-1.30 [facility] Comment on above: Performed By: #### L 501.2450, L500.4050, L100.0100 ####[facility] [address] [place], [address] BUN/CRE 16.3 RATIO Normal 10-20 [facility] Comment on above: Performed By: #### L 501.2450, L500.4050, L100.0100 ####[facility] [address] [place], [address] Calcium [Mass/Vol] 9.5 mg/dL Normal 7.6-11.0 [facility] Comment on above: Performed By: #### L 501.2450, L500.4050, L100.0100 ####[facility] [address] [place], [address] Chloride [Moles/Vol] 103 mmol/L Normal 98-108 [facility] Comment on above: Performed By: #### L 501.2450, L500.4050, L100.0100 ####[facility] [address] [place], [address] CO2 [Moles/Vol] 29.7 mmol/L Normal 21.0-32.0 [facility] Comment on above: Performed By: #### L 501.2450, L500.4050, L100.0100 ####[facility] [address] [place], [address] Creatinine [Mass/Vol] 0.84 mg/dL Normal 0.70-1.20 [facility] Comment on above: Performed By: #### L 501.2450, L500.4050, L100.0100 ####[facility] [address] [place], [address] ECRCL 62.99 ml/min Normal 50-250 [facility] Comment on above: Performed By: #### L 501.2450, L500.4050, L100.0100 ####[facility] [address] [place], [address] GAP 9 Normal 5-15 [facility] Comment on above: Performed By: #### L 501.2450, L500.4050, L100.0100 ####[facility] [address] [place], [address] GFR/1.73 sq M.predicted among non-blacks MDRD (S/P/Bld) [Vol rate/Area] 76 mL/min/{1.73_m2} Normal >60 [facility] Comment on above: Result Comment: mL/m in/1.73m2 CKD-EPI Creatinine Equation (2020) Performed By: #### L 501.2450, L500.4050, L100.0100 ####[facility] [address] [place], [address] Globulin (S) [Mass/Vol] 2.9 g/dL Normal 2.2-4.2 [facility] Comment on above: Performed By: #### L 501.2450, L500.4050, L100.0100 ####[facility] [address] [place], [address] Glucose [Mass/Vol] 99 mg/dL Normal 70-99 [facility] Comment on above: Performed By: #### L 501.2450, L500.4050, L100.0100 ####[facility] [address] [place], [address] Potassium [Moles/Vol] 3.7 mmol/L Normal 3.3-5.1 [facility] Comment on above: Performed By: #### L 501.2450, L500.4050, L100.0100 ####[facility] [address] [place], [address] Sodium [Moles/Vol] 142 mmol/L Normal 133-145 [facility] Comment on above: Performed By: #### L 501.2450, L500.4050, L100.0100 ####[facility] [address] [place], [address] T PROT 6.8 g/dL Normal 5.9-8.4 [facility] Comment on above: Performed By: #### L 501.2450, L500.4050, L100.0100 ####[facility] [address] [place], [address] Urea nitrogen [Mass/Vol] 14 mg/dL Normal 4-19 [facility] Comment on above: Performed By: #### L 501.2450, L500.4050, L100.0100 ####[facility] [address] [place], [address] Emergency Department Summary on 12-30-2024 Emergency Department Summary Normal [facility] Eosinophil percentageOrdered By: Waqas Hart on 12-30-2024 Eosinophils/100 WBC (Bld) 1.7 % 0-5 [facility] Epithelial cells.squamous LM Ql (Urine sed)Ordered By: Waqas Hart on 12-30-2024 Epithelial cells.squamous LM.HPF (Urine sed) [#/Area] 0 /[HPF] 5-10 [facility] Erythrocyte distribution wid th (RBC) [Ratio]Ordered By: Waqas Hart on 12-30-2024 Erythrocyte distribution width (RBC) [Entitic vol] 47.3 fL High 35.1-43.9 [facility] Erythrocyte distribution wid th ratioOrdered By: Waqas Hart on 12-30-2024 Erythrocyte distribution width (RBC) [Ratio] 13.1 % 11.6-14.6 [facility] Erythrocyte distribution wid th standard deviationOrdered By: Waqas Hart on 12-30-2024 Erythrocyte distribution width (RBC) [Ratio] 47.3 fl High 35.1-43.9 [facility] Estimation of creatinine pietro aranceOrdered By: Waqas Hart on 12-30-2024 Estimated Creatinine Clearance Calc 62.99 ml/min 50-250 [facility] GFR/1.73 sq M.predicted gabbi g non-blacks MDRD (S/P/Bld) [Vol rate/Area]Ordered By: Waqas Hart on 12-30-2024 Estimated GFR (MDRD) Non-Af Amer 76 >60 [facility] Comment on above: mL/min/1.73m2 CKD-EP I Creatinine Equation (2020) Glomerular filtration rate ( GFR) estimation/1.73 sq m using serum, plasma, or whole bOrdered By: Waqas Hart on 12-30-2024 GFR/1.73 sq M.predicted among non-blacks MDRD (S/P/Bld) [Vol rate/Area] 76 mL/min/{1.73_m2} >60 [facility] Glucose Ql (U)Ordered By: Kiet Hart on 12-30-2024 Urine Glucose (UA) Normal mg/dl Normal [facility] Hematocrit Auto (Bld) [Volum e fraction]Ordered By: Waqas Hart on 12-30-2024 Hematocrit (Bld) [Volume fraction] 41.1 % 37-47 [facility] Hemoglobin measurementOrdere d By: Waqas Hart on 12-30-2024 Hemoglobin (Bld) [Mass/Vol] 13.2 g/dL 12.0-15. 0 [facility] Immature granulocytes/100 WB C Auto (Bld)Ordered By: Waqas Hart on 12-30-2024 Immature granulocytes/100 WBC (Bld) 0.400 % 0.0-0.9 [facility] Comment on above: IG% - Immature Granu locytes (promyelocytes, myelocytes and metamyelocytes) > 1% indicates that a LEFT SHIFT is Present. Ketones Test strip Ql (U)Ord ered By: Waqas Hart on 12-30-2024 Ketones Ql (U) Negative Negative [facility] Laboratory - Chemistry and C hemistry - challengeOrdered By: Waqas Hart on 12-30-2024 AST [Catalytic activity/Vol] 16 U/L <32 [facility] Lipaseon 12-30-2024 Lipase [Catalytic activity/Vol] 13 U/L Normal 13-75 [facility] Comment on above: Result Comment: Kelvin duque note:LIPASE revised reference range effective 22.New Lipase methodology. Expected to produce lower valuesthan the previous assay method.NEW Reference Range: 13 - 75 U/L Performed By: #### L 501.2450, L500.4050, L100.0100 ####[facility] [address] [place], [address] Lipase measurementOrdered By : Waqas Hart on 12-30-2024 Lipase [Catalytic activity/Vol] 13 U/L 13-75 [facility] Comment on above: Please note:LIPASE r evised reference range effective 22. New Lipase methodology. Expected to produce lower values than the previous assay method. NEW Reference Range: 13 - 75 U/L Lymphocytes Auto (Unsp spec) [#/Vol]Ordered By: Waqas Hart on 12-30-2024 Lymphocytes (Bld) [#/Vol] 2.64 10*3/uL 0.83-4.5 1 [facility] Lymphocytes/100 WBC Auto (Un sp spec)Ordered By: Waqas Hart on 12-30-2024 Lymphocytes/100 WBC (Bld) 32.5 % 19-41 [facility] MCV (mean corpuscular volume ) determinationOrdered By: Waqas Hart on 12-30-2024 MCV (RBC) [Entitic vol] 98.6 fL 81-99 [facility] Mean corpuscular hemoglobin (MCH) determinationOrdered By: Waqas Hart on 12-30-2024 MCH (RBC) [Entitic mass] 31.7 pg 27.0-32.0 [facility] Mean corpuscular hemoglobin concentration (MCHC) determinationOrdered By: Waqas Hart on 12-30-2024 MCHC (RBC) [Mass/Vol] 32.1 g/dL 32-36 [facility] Mean platelet volume determi nationOrdered By: Waqas Hart on 12-30-2024 Platelet mean volume (Bld) [Entitic vol] 9.7 fL 6.2-12.0 [facility] Microscopic analysis of urin e for red blood cells (RBC)Ordered By: Waqas Hart on 12-30-2024 Urine RBC 0-5 SEEN /hpf 0-5 [facility] Monocyte percentageOrdered B y: Waqas Hart on 12-30-2024 Monocytes/100 WBC (Bld) 6.9 % 0-10 [facility] Mucus LM Ql (Urine sed)Order ed By: Waqas Hart on 12-30-2024 Mucus Ql (Urine sed) 0 SEEN /hpf [facility] Neutrophil percentageOrdered By: Waqas Hart on 12-30-2024 Neutrophils/100 WBC (Bld) 57.9 % 47-70 [facility] Nitrite Test strip Ql (U)Ord ered By: Waqas Hart on 12-30-2024 Nitrite Ql (U) Negative Negative [facility] No Panel InformationOrdered By: Waqas Hart on 12-30-2024 16 U/L <32 [facility] Nucleated red blood cell per centageOrdered By: Waqas Hart on 12-30-2024 Nucleated RBC/100 WBC (Bld) [Ratio] 0 % 0-5 [facility] Platelet countOrdered By: Kiet Hart on 12-30-2024 Platelets (Bld) [#/Vol] 208 10*3/uL 150-450 [facility] Potassium (Unsp spec) [Mass/ Vol]Ordered By: Waqas Hart on 12-30-2024 Potassium [Moles/Vol] 3.7 mmol/L 3.3-5.1 [facility] Potassium measurement (mass/ volume)Ordered By: Waqas Hart on 12-30-2024 Potassium (Unsp spec) [Mass/Vol] 3.7 mmol/L 3.3-5.1 [facility] Protein Test strip Ql (U)Ord ered By: Waqas Hart on 12-30-2024 Protein Ql (U) 30 mg/dl High Negative [facility] RBC Auto (Bld) [#/Vol]Ordere d By: Waqas Hart on 12-30-2024 RBC (Bld) [#/Vol] 4.17 10*6/uL Low 4.2-5.4 [facility] Serum creatinine measurement (mass/volume)Ordered By: Waqas Hart on 12-30-2024 Creatinine [Mass/Vol] 0.84 mg/dL 0.70-1.20 [facility] Serum globulin measurementOr dered By: Waqas Hart on 12-30-2024 Globulin (S) [Mass/Vol] 2.9 g/dL 2.2-4.2 [facility] Serum glucose measurement (m ass/volume)Ordered By: Waqas Hart on 12-30-2024 Glucose [Mass/Vol] 99 mg/dL 70-99 [facility] Serum or plasma alanine smith otransferase (ALT) measurementOrdered By: Waqas Hart on 12-30-2024 ALT [Catalytic activity/Vol] 6 U/L <35 [facility] Serum or plasma albumin areli urement (mass/volume)Ordered By: Waqas Hart on 12-30-2024 Albumin [Mass/Vol] 3.8 g/dL 3.4-4.8 [facility] Serum or plasma albumin/glob ulin mass ratioOrdered By: Waqas Hart on 12-30-2024 Albumin/Globulin [Mass ratio] 1.3 {ratio} 0.9-2.4 [facility] Serum or plasma alkaline abimael sphatase measurementOrdered By: Waqas Hart on 12-30-2024 ALP [Catalytic activity/Vol] 97 U/L 35-104 [facility] Serum or plasma calcium areli urement (mass/volume)Ordered By: Waqas Hart on 12-30-2024 Calcium [Mass/Vol] 9.5 mg/dL 7.6-11.0 [facility] Serum or plasma urea nitroge n measurement (mass/volume)Ordered By: Waqas Hart on 12-30-2024 Urea nitrogen [Mass/Vol] 14 mg/dL 4-19 [facility] Sodium levelOrdered By: Waqas Hart on 12-30-2024 Sodium [Moles/Vol] 142 mmol/L 133-145 [facility] Squamous epithelial cells de tection in urine sediment by light microscopyOrdered By: Waqas Hart on 12-30-2024 Epithelial cells.squamous LM Ql (Urine sed) 0 SEEN /hpf 5-10 [facility] Total proteinOrdered By: Rufino Hart on 12-30-2024 Protein [Mass/Vol] 6.8 g/dL 5.9-8.4 [facility] Urinalysis, Completeon 12-30 RBC 0-5 SEEN Normal 0-5 [facility] Comment on above: Order Comment: COLLE CTOR TO SPECIFY Performed By: #### L 400.0001 ####[facility] [address] [place], [address] WBC 0-5 SEEN Normal 0-5 [facility] Comment on above: Order Comment: KOREY CTOR TO SPECIFY Performed By: #### L 400.0001 ####[facility] [address] [place], [address] BACTERIA 0 SEEN Normal None Seen [facility] Comment on above: Order Comment: KOREY CTOR TO SPECIFY Performed By: #### L 400.0001 ####[facility] [address] [place], [address] EPI,SQUAMOUS 0 SEEN Normal 5-10 [facility] Comment on above: Order Comment: COLLE CTOR TO SPECIFY Performed By: #### L 400.0001 ####[facility] [address] [place], [address] Mucus Ql (Urine sed) 0 SEEN Normal [facility] Comment on above: Order Comment: KOREY CTOR TO SPECIFY Performed By: #### L 400.0001 ####[facility] [address] [place], [address] Urine blood detectionOrdered By: Waqas Hart on 12-30-2024 Urine Occult Blood Negative Negative [facility] Urine clarityOrdered By: Rufino Hart on 12-30-2024 Clarity (U) Clear Clear [facility] Urine color determinationOrd ered By: Waqas Hart on 12-30-2024 Color (U) Yellow Yellow [facility] Urine glucose detectionOrder ed By: Waqas Hart on 12-30-2024 Glucose Ql (U) Normal mg/dl Normal [facility] Urine leukocyte esterase det ection by dipstickOrdered By: Waqas Hart on 12-30-2024 Leukocyte esterase Test strip Ql (U) 25 /ul High Negative [facility] Urine pHOrdered By: Waqas grullon on 12-30-2024 pH (U) 6.0 [pH] 5.0 - 8.0 [facility] Urine sediment bacteria coun t by microscopy (number/high power field)Ordered By: Waqas Hart on 12-30-2024 Bacteria LM.HPF (Urine sed) [#/Area] 0 /[HPF] None Seen [facility] Urine specific gravity measu rementOrdered By: Waqas Hart on 12-30-2024 Specific gravity (U) [Rel density] 1.020 1.002-1.03 0 [facility] Urine urobilinogen measureme ntOrdered By: Waqas Hart on 12-30-2024 Urobilinogen Ql (U) Normal mg/dl Normal [facility] Urobilinogen Ql (U)Ordered B y: Waqas Hart on 12-30-2024 Urine Urobilinogen Normal mg/dl Normal [facility] White blood cell (WBC) count Ordered By: Waqas Hart on 12-30-2024 WBC (Bld) [#/Vol] 8.1 10*3/uL 4.4-11.0 [facility] White blood cell countOrdere d By: Waqas Hart on 12-30-2024 Urine WBC 0-5 SEEN /hpf 0-5 [facility] White blood cell count 0-5 SEEN /hpf 0-5 [facility] 12 Lead EKGon 12-20-2024 12 Lead EKG Normal [facility] Absolute lymphocyte countOrd ered By: ED PROVIDER on 12-20-2024 Lymphocytes Auto (Unsp spec) [#/Vol] 1.79 10*3/uL 0.83-4.51 [facility] Absolute neutrophil countOrd ered By: ED PROVIDER on 12-20-2024 Neutrophils (Bld) [#/Vol] 2.6 10*3/uL 2.0-7.7 [facility] Anion gap in Serum or Plasma Ordered By: ED PROVIDER on 12-20-2024 Anion gap [Moles/Vol] 8 mmol/L 01-19 [facility] Automated lymphocyte count a s percentage of total leukocytesOrdered By: ED PROVIDER on 12-20-2024 Lymphocytes/100 WBC Auto (Unsp spec) 35.8 % [facility] BUN/creatinine ratioOrdered By: ED PROVIDER on 12-20-2024 Urea nitrogen/Creatinine [Mass ratio] 11.7 mg/mg - [facility] Basic Metabolic Profile (BMP )on 12-20-2024 BUN/CRE 11.7 RATIO Normal 06-26 [facility] Comment on above: Performed By: #### L 501.4021, L100.0100, L500.2500 ####[facility] [address] [place], [address] Calcium [Mass/Vol] 9.6 mg/dL Normal 7.6-11.0 [facility] Comment on above: Performed By: #### L 501.4021, L100.0100, L500.2500 ####[facility] [address] [place], [address] Chloride [Moles/Vol] 102 mmol/L Normal 98-108 [facility] Comment on above: Performed By: #### L 501.4021, L100.0100, L500.2500 ####[facility] [address] [place], [address] CO2 [Moles/Vol] 30.9 mmol/L Normal 21.0-32.0 [facility] Comment on above: Performed By: #### L 501.4021, L100.0100, L500.2500 ####[facility] [address] [place], [address] Creatinine [Mass/Vol] 0.78 mg/dL Normal 0.70-1.20 [facility] Comment on above: Performed By: #### L 501.4021, L100.0100, L500.2500 ####[facility] [address] [place], [address] GAP 8 Normal 5-15 [facility] Comment on above: Performed By: #### L 501.4021, L100.0100, L500.2500 ####[facility] [address] [place], [address] GFR/1.73 sq M.predicted among non-blacks MDRD (S/P/Bld) [Vol rate/Area] 83 mL/min/{1.73_m2} Normal >60 [facility] Comment on above: Result Comment: mL/m in/1.73m2 CKD-EPI Creatinine Equation (2020) Performed By: #### L 501.4021, L100.0100, L500.2500 ####[facility] [address] [place], [address] Glucose [Mass/Vol] 117 mg/dL High 70-99 [facility] Comment on above: Performed By: #### L 501.4021, L100.0100, L500.2500 ####[facility] [address] [place], [address] Potassium [Moles/Vol] 4.3 mmol/L Normal 3.3-5.1 [facility] Comment on above: Performed By: #### L 501.4021, L100.0100, L500.2500 ####[facility] [address] [place], [address] Sodium [Moles/Vol] 141 mmol/L Normal 133-145 [facility] Comment on above: Performed By: #### L 501.4021, L100.0100, L500.2500 ####[facility] [address] [place], [address] Urea nitrogen [Mass/Vol] 9 mg/dL Normal 4-19 [facility] Comment on above: Performed By: #### L 501.4021, L100.0100, L500.2500 ####[facility] [address] [place], [address] Basophil percentageOrdered B y: ED PROVIDER on 12-20-2024 Basophils/100 WBC (Bld) 0.8 % 0-1 [facility] CBC W/Diff, Automatedon 12-06 Absolute Lymph 1.79 X10 3/uL Normal 0.83-4.51 [facility] Comment on above: Performed By: #### L 501.4021, L100.0100, L500.2500 ####[facility] [address] [place], [address] Absolute Neut 2.6 X10 3/uL Normal 2.0-7.7 [facility] Comment on above: Performed By: #### L 501.4021, L100.0100, L500.2500 ####[facility] [address] [place], [address] Basophils/100 WBC (Bld) 0.8 % Normal 0-1 [facility] Comment on above: Performed By: #### L 501.4021, L100.0100, L500.2500 ####[facility] [address] [place], [address] Eosinophils/100 WBC (Bld) 2.8 % Normal 0-5 [facility] Comment on above: Performed By: #### L 501.4021, L100.0100, L500.2500 ####[facility] [address] [place], [address] Erythrocyte distribution width (RBC) [Ratio] 12.7 % Normal 11.6-14.6 [facility] Comment on above: Performed By: #### L 501.4021, L100.0100, L500.2500 ####[facility] [address] [place], [address] Hematocrit (Bld) [Volume fraction] 39.5 % Normal 37-47 [facility] Comment on above: Performed By: #### L 501.4021, L100.0100, L500.2500 ####[facility] [address] [place], [address] Hemoglobin (Bld) [Mass/Vol] 13.1 g/dL Normal 12.0-15. 0 [facility] Comment on above: Performed By: #### L 501.4021, L100.0100, L500.2500 ####[facility] [address] [place], [address] IG% 0.200 Normal 0.0-0.9 [facility] Comment on above: Result Comment: IG% - Immature Granulocytes (promyelocytes, myelocytes andmetamyelocytes) > 1% indicates that a LEFT SHIFT is Present. Performed By: #### L 501.4021, L100.0100, L500.2500 ####[facility] [address] [place], [address] Lymphocytes/100 WBC (Bld) 35.8 % Normal 19-41 [facility] Comment on above: Performed By: #### L 501.4021, L100.0100, L500.2500 ####[facility] [address] [place], [address] MCH (RBC) [Entitic mass] 31.6 pg Normal 27.0-32.0 [facility] Comment on above: Performed By: #### L 501.4021, L100.0100, L500.2500 ####[facility] [address] [place], [address] MCHC (RBC) [Mass/Vol] 33.2 g/dL Normal 32-36 [facility] Comment on above: Performed By: #### L 501.4021, L100.0100, L500.2500 ####[facility] [address] [place], [address] MCV (RBC) [Entitic vol] 95.2 fL Normal 81-99 [facility] Comment on above: Performed By: #### L 501.4021, L100.0100, L500.2500 ####[facility] [address] [place], [address] Monocytes/100 WBC (Bld) 7.6 % Normal 0-10 [facility] Comment on above: Performed By: #### L 501.4021, L100.0100, L500.2500 ####[facility] [address] [place], [address] Neutrophils/100 WBC (Bld) 52.8 % Normal 47-70 [facility] Comment on above: Performed By: #### L 501.4021, L100.0100, L500.2500 ####[facility] [address] [place], [address] Nucleated RBC (Bld) [#/Vol] 0 10*3/uL Normal 0-5 [facility] Comment on above: Performed By: #### L 501.4021, L100.0100, L500.2500 ####[facility] [address] [place], [address] Platelet mean volume (Bld) [Entitic vol] 9.4 fL Normal 6.2-12.0 [facility] Comment on above: Performed By: #### L 501.4021, L100.0100, L500.2500 ####[facility] [address] [place], [address] Platelets (Bld) [#/Vol] 183 10*3/uL Normal 150-450 [facility] Comment on above: Performed By: #### L 501.4021, L100.0100, L500.2500 ####[facility] [address] [place], [address] RBC (Bld) [#/Vol] 4.15 10*6/uL Low 4.2-5.4 [facility] Comment on above: Performed By: #### L 501.4021, L100.0100, L500.2500 ####[facility] [address] [place], [address] RDW SD 44.1 fl High 35.1-43.9 [facility] Comment on above: Performed By: #### L 501.4021, L100.0100, L500.2500 ####[facility] [address] [place], [place], [address] WBC (Bld) [#/Vol] 5.0 10*3/uL Normal 4.4-11.0 [facility] Comment on above: Performed By: #### L 501.4021, L100.0100, L500.2500 ####[facility] [address] [place], [address] Carbon dioxide, total [Moles /volume] in Central venous bloodOrdered By: ED PROVIDER on 12-20-2024 CO2 [Moles/Vol] 30.9 mmol/L 21.0-32.0 [facility] Chest 1 View (Portable)on Chest 1 View (Portable) Normal [facility] Chloride assayOrdered By: ED PROVIDER on 12-20-2024 Chloride [Moles/Vol] 102 mmol/L 98-108 [facility] Emergency Department Summary on 12-20-2024 Emergency Department Summary Normal [facility] Eosinophil percentageOrdered By: ED PROVIDER on 12-20-2024 Eosinophils/100 WBC (Bld) 2.8 % 0-5 [facility] Erythrocyte distribution wid th (RBC) [Ratio]Ordered By: ED PROVIDER on 12-20-2024 Erythrocyte distribution width (RBC) [Entitic vol] 44.1 fL High 35.1-43.9 [facility] Erythrocyte distribution wid th ratioOrdered By: ED PROVIDER on 12-20-2024 Erythrocyte distribution width (RBC) [Ratio] 12.7 % 11.6-14.6 [facility] Erythrocyte distribution wid th standard deviationOrdered By: ED PROVIDER on 12-20-2024 Erythrocyte distribution width (RBC) [Ratio] 44.1 fl High 35.1-43.9 [facility] GFR/1.73 sq M.predicted gabbi g non-blacks MDRD (S/P/Bld) [Vol rate/Area]Ordered By: ED PROVIDER on 12-20-2024 Estimated GFR (MDRD) Non-Af Amer 83 >60 [facility] Comment on above: mL/min/1.73m2 CKD-EP I Creatinine Equation (2020) Glomerular filtration rate ( GFR) estimation/1.73 sq m using serum, plasma, or whole bOrdered By: ED PROVIDER on 12-20-2024 GFR/1.73 sq M.predicted among non-blacks MDRD (S/P/Bld) [Vol rate/Area] 83 mL/min/{1.73_m2} >60 [facility] Hematocrit Auto (Bld) [Volum e fraction]Ordered By: ED PROVIDER on 12-20-2024 Hematocrit (Bld) [Volume fraction] 39.5 % 37-47 [facility] Hemoglobin measurementOrdere d By: ED PROVIDER on 12-20-2024 Hemoglobin (Bld) [Mass/Vol] 13.1 g/dL 12.0-15. 0 [facility] Immature granulocytes/100 WB C Auto (Bld)Ordered By: ED PROVIDER on 12-20-2024 Immature granulocytes/100 WBC (Bld) 0.200 % 0.0-0.9 [facility] Comment on above: IG% - Immature Granu locytes (promyelocytes, myelocytes and metamyelocytes) > 1% indicates that a LEFT SHIFT is Present. International normalized rat io (INR) calculationOrdered By: ED PROVIDER on 12-20-2024 INR Coag (Bld) [Relative time] 1.0 {INR} [facility] L499.0042on 12-20-2024 Trop T High Sen 12 ng/L Normal <=14 [facility] Comment on above: Performed By: #### L 499.0042 ####[facility] [address] [place], [address] L499.0043on 12-20-2024 Trop T High Sen Normal <=14 [facility] Comment on above: Result Comment: Canc elled via OM: Order cancelled - Patient discharged Performed By: #### L 499.0043 ####[facility] [address] [place], [address] L501.4021on 12-20-2024 Trop T High Sen 11 ng/L Normal <=14 [facility] Comment on above: Performed By: #### L 501.4021, L100.0100, L500.2500 ####[facility] [address] [place], [address] Lymphocytes Auto (Unsp spec) [#/Vol]Ordered By: ED PROVIDER on 12-20-2024 Lymphocytes (Bld) [#/Vol] 1.79 10*3/uL 0.83-4.5 1 [facility] Lymphocytes/100 WBC Auto (Un sp spec)Ordered By: ED PROVIDER on 12-20-2024 Lymphocytes/100 WBC (Bld) 35.8 % 19-41 [facility] MCV (mean corpuscular volume ) determinationOrdered By: ED PROVIDER on 12-20-2024 MCV (RBC) [Entitic vol] 95.2 fL 81-99 [facility] Mean corpuscular hemoglobin (MCH) determinationOrdered By: ED PROVIDER on 12-20-2024 MCH (RBC) [Entitic mass] 31.6 pg 27.0-32.0 [facility] Mean corpuscular hemoglobin concentration (MCHC) determinationOrdered By: ED PROVIDER on 12-20-2024 MCHC (RBC) [Mass/Vol] 33.2 g/dL 32-36 [facility] Mean platelet volume determi nationOrdered By: ED PROVIDER on 12-20-2024 Platelet mean volume (Bld) [Entitic vol] 9.4 fL 6.2-12.0 [facility] Monocyte percentageOrdered B y: ED PROVIDER on 12-20-2024 Monocytes/100 WBC (Bld) 7.6 % 0-10 [facility] Neutrophil percentageOrdered By: ED PROVIDER on 12-20-2024 Neutrophils/100 WBC (Bld) 52.8 % 47-70 [facility] Nucleated red blood cell per centageOrdered By: ED PROVIDER on 12-20-2024 Nucleated RBC/100 WBC (Bld) [Ratio] 0 % 0-5 [facility] Platelet countOrdered By: ED PROVIDER on 12-20-2024 Platelets (Bld) [#/Vol] 183 10*3/uL 150-450 [facility] Potassium (Unsp spec) [Mass/ Vol]Ordered By: ED PROVIDER on 12-20-2024 Potassium [Moles/Vol] 4.3 mmol/L 3.3-5.1 [facility] Potassium measurement (mass/ volume)Ordered By: ED PROVIDER on 12-20-2024 Potassium (Unsp spec) [Mass/Vol] 4.3 mmol/L 3.3-5.1 [facility] Prothrombin Time w/INRon INR Coag (PPP) [Relative time] 1.0 {INR} Normal [facility] Comment on above: Performed By: #### L 300.3900 ####[facility] [address] [place], [address] PT Coag (PPP) [Time] 13.1 s Normal 11.7-14.9 [facility] Comment on above: Performed By: #### L 300.3900 ####[facility] [address] [place], [address] Prothrombin timeOrdered By: ED PROVIDER on 12-20-2024 PT Coag (PPP) [Time] 13.1 s 11.7-14.9 [facility] RBC Auto (Bld) [#/Vol]Ordere d By: ED PROVIDER on 12-20-2024 RBC (Bld) [#/Vol] 4.15 10*6/uL Low 4.2-5.4 [facility] Serum creatinine measurement (mass/volume)Ordered By: ED PROVIDER on 12-20-2024 Creatinine [Mass/Vol] 0.78 mg/dL 0.70-1.20 [facility] Serum glucose measurement (m ass/volume)Ordered By: ED PROVIDER on 12-20-2024 Glucose [Mass/Vol] 117 mg/dL High 70-99 [facility] Serum or plasma calcium areli urement (mass/volume)Ordered By: ED PROVIDER on 12-20-2024 Calcium [Mass/Vol] 9.6 mg/dL 7.6-11.0 [facility] Serum or plasma urea nitroge n measurement (mass/volume)Ordered By: ED PROVIDER on 12-20-2024 Urea nitrogen [Mass/Vol] 9 mg/dL 4-19 [facility] Sodium levelOrdered By: ED Vale ROMERO on 12-20-2024 Sodium [Moles/Vol] 141 mmol/L 133-145 [facility] Troponin T.cardiac High sens itivity method [Mass/Vol]Ordered By: Waqas Hart on 12-20-2024 Troponin T High Sensitivity 2 Hour 12 ng/L <14 [facility] Troponin T.cardiac High sens itivity method [Mass/Vol]Ordered By: ED PROVIDER on 12-20-2024 Troponin T High Sensitivity 11 ng/L <14 [facility] Comment on above: Delta: 12 on 5230 Troponin T.cardiac [Mass/vol ume] in Serum or Plasma by High sensitivity methodOrdered By: Waqas Hart on 12-20-2024 Troponin T.cardiac High sensitivity method [Mass/Vol] 12 ng/L <14 [facility] Troponin T.cardiac [Mass/vol ume] in Serum or Plasma by High sensitivity methodOrdered By: ED PROVIDER on 12-20-2024 Troponin T.cardiac High sensitivity method [Mass/Vol] 11 ng/L <14 [facility] White blood cell (WBC) count Ordered By: ED PROVIDER on 12-20-2024 WBC (Bld) [#/Vol] 5.0 10*3/uL 4.4-11.0 [facility] CNPNon 11-14-2024 CNPN Telephone (INTMWS) MARCIA MASCORRO ([id number]) 1955 F T Date Time Provider Department 11/14/24 GABRIEL GALVAN INTMWS During your visit today, we recorded the following information about you: Elsy Sanz RN 11/14/2024 2:45 PM Signed Rajiv calling from [facility] and states she will be faxing over [...] palpitations [R00.2] more content not included)... Normal [facility] L499.0042on 11-05-2024 Trop T Delta 2 Normal [facility] Comment on above: Result Comment: If c linical suspicion for ACS is high, suggest getting athird troponin. Otherwise, stress test or CTCA. Performed By: #### L 499.0042 ####[facility] [address] [facility] [place], [place], [id number] Trop T High Sen 10 ng/L Normal <=14 [facility] Comment on above: Performed By: #### L 499.0042 ####[facility] [address] [place], [place], [id number] No Panel InformationOrdered By: Linus Byers on 11-05-2024 Troponin T Hi Sensitivity 2Hr Delta 2 [facility] Comment on above: If clinical suspicio n for ACS is high, suggest getting a third troponin. Otherwise, stress test or CTCA. 2 [facility] Troponin T.cardiac High sens itivity method [Mass/Vol]Ordered By: Linus Byers on 11-05-2024 Troponin T High Sensitivity 2 Hour 10 ng/L <14 [facility] Troponin T.cardiac [Mass/vol ume] in Serum or Plasma by High sensitivity methodOrdered By: Linus Byers on 11-05-2024 Troponin T.cardiac High sensitivity method [Mass/Vol] 10 ng/L <14 [facility] 12 Lead EKGon 11-04-2024 12 Lead EKG Normal [facility] Absolute lymphocyte countOrd ered By: Linus Byers on 11-04-2024 Lymphocytes Auto (Unsp spec) [#/Vol] 1.71 10*3/uL 0.83-4.51 [facility] Absolute neutrophil countOrd ered By: [place] on 11-04-2024 Neutrophils (Bld) [#/Vol] 3.8 10*3/uL 2.0-7.7 [facility] Automated lymphocyte count a s percentage of total leukocytesOrdered By: Linus Byers on 11-04-2024 Lymphocytes/100 WBC Auto (Unsp spec) 28.2 % 19-41 [facility] BUN/creatinine ratioOrdered By: Linus Byers on 11-04-2024 Urea nitrogen/Creatinine [Mass ratio] 15.7 mg/mg 10-20 [facility] Basic Metabolic Profile (BMP )on 11-04-2024 Anion gap [Moles/Vol] 6 mmol/L Normal 5-15 [facility] Comment on above: Performed By: #### L 500.2500, L100.0100 ####[facility] [address] [place], [address] BUN/CRE 15.7 RATIO Normal 10-20 [facility] Comment on above: Performed By: #### L 500.2500, L100.0100 ####[facility] [address] [place], [address] Calcium [Mass/Vol] 8.9 mg/dL Normal 7.6-11.0 [facility] Comment on above: Performed By: #### L 500.2500, L100.0100 ####[facility] [address] [place], [address] Chloride [Moles/Vol] 105 mmol/L Normal 96-108 [facility] Comment on above: Performed By: #### L 500.2500, L100.0100 ####[facility] [address] [place], [address] CO2 [Moles/Vol] 32.3 mmol/L High 22.0-29.0 [facility] Comment on above: Performed By: #### L 500.2500, L100.0100 ####[facility] [address] [place], [address] Creatinine [Mass/Vol] 0.96 mg/dL Normal 0.70-1.20 [facility] Comment on above: Performed By: #### L 500.2500, L100.0100 ####[facility] [address] [place], [address] ECRCL 58.14 ml/min Normal [facility] Comment on above: Performed By: #### L 500.2500, L100.0100 ####[facility] [address] [place], [address] GFR/1.73 sq M.predicted among non-blacks MDRD (S/P/Bld) [Vol rate/Area] 65 mL/min/{1.73_m2} Normal >60 [facility] Comment on above: Result Comment: mL/m in/1.73m2 CKD-EPI Creatinine Equation (2020) Performed By: #### L 500.2500, L100.0100 ####[facility] [address] [place], [address] Glucose [Mass/Vol] 114 mg/dL High 70-99 [facility] Comment on above: Performed By: #### L 500.2500, L100.0100 ####[facility] [address] [place], [address] Potassium [Moles/Vol] 4.0 mmol/L Normal 3.3-5.1 [facility] Comment on above: Performed By: #### L 500.2500, L100.0100 ####[facility] [address] [place], [address] Sodium [Moles/Vol] 143 mmol/L Normal 133-145 [facility] Comment on above: Performed By: #### L 500.2500, L100.0100 ####[facility] [address] [place], [address] Urea nitrogen [Mass/Vol] 15 mg/dL Normal 4-19 [facility] Comment on above: Performed By: #### L 500.2500, L100.0100 ####[facility] [address] [place], [address] Basophil percentageOrdered B y: Linus Byers on 11-04-2024 Basophils/100 WBC (Bld) 0.7 % 0-1 [facility] CBC W/Diff, Automatedon 10-09 Absolute Lymph 1.71 X10 3/uL Normal 0.83-4.51 [facility] Comment on above: Performed By: #### L 500.2500, L100.0100 ####[facility] [address] [place], [address] Absolute Neut 3.8 X10 3/uL Normal 2.0-7.7 [facility] Comment on above: Performed By: #### L 500.2500, L100.0100 ####[facility] [address] [place], [address] Basophils/100 WBC (Bld) 0.7 % Normal 0-1 [facility] Comment on above: Performed By: #### L 500.2500, L100.0100 ####[facility] [address] [place], [address] Eosinophils/100 WBC (Bld) 2.1 % Normal 0-5 [facility] Comment on above: Performed By: #### L 500.2500, L100.0100 ####[facility] [address] [place], [address] Erythrocyte distribution width (RBC) [Ratio] 13.2 % Normal 11.6-14.6 [facility] Comment on above: Performed By: #### L 500.2500, L100.0100 ####[facility] [address] [place], [address] Hematocrit (Bld) [Volume fraction] 38.4 % Normal 37-47 [facility] Comment on above: Performed By: #### L 500.2500, L100.0100 ####[facility] [address] [place], [address] Hemoglobin (Bld) [Mass/Vol] 12.1 g/dL Normal 12.0-15. 0 [facility] Comment on above: Performed By: #### L 500.2500, L100.0100 ####[facility] [address] [place], [address] IG% 0.200 Normal 0.0-0.9 [facility] Comment on above: Result Comment: IG% - Immature Granulocytes (promyelocytes, myelocytes andmetamyelocytes) > 1% indicates that a LEFT SHIFT is Present. Performed By: #### L 500.2500, L100.0100 ####[facility] [address] [place], [address] Lymphocytes/100 WBC (Bld) 28.2 % Normal 19-41 [facility] Comment on above: Performed By: #### L 500.2500, L100.0100 ####[facility] [address] [place], [address] MCH (RBC) [Entitic mass] 31.3 pg Normal 27.0-32.0 [facility] Comment on above: Performed By: #### L 500.2500, L100.0100 ####[facility] [address] [place], [address] MCHC (RBC) [Mass/Vol] 31.5 g/dL Low 32-36 [facility] Comment on above: Performed By: #### L 500.2500, L100.0100 ####[facility] [address] [place], [address] MCV (RBC) [Entitic vol] 99.2 fL High 81-99 [facility] Comment on above: Performed By: #### L 500.2500, L100.0100 ####[facility] [address] [place], [address] Monocytes/100 WBC (Bld) 6.9 % Normal 0-10 [facility] Comment on above: Performed By: #### L 500.2500, L100.0100 ####[facility] [address] [place], [address] Neutrophils/100 WBC (Bld) 61.9 % Normal 47-70 [facility] Comment on above: Performed By: #### L 500.2500, L100.0100 ####[facility] [address] [place], [address] Nucleated RBC (Bld) [#/Vol] 0 10*3/uL Normal 0-5 [facility] Comment on above: Performed By: #### L 500.2500, L100.0100 ####[facility] [address] [place], [address] Platelet mean volume (Bld) [Entitic vol] 9.1 fL Normal 6.2-12.0 [facility] Comment on above: Performed By: #### L 500.2500, L100.0100 ####[facility] [address] [place], [address] Platelets (Bld) [#/Vol] 172 10*3/uL Normal 150-450 [facility] Comment on above: Performed By: #### L 500.2500, L100.0100 ####[facility] [address] [place], [address] RBC (Bld) [#/Vol] 3.87 10*6/uL Low 4.2-5.4 [facility] Comment on above: Performed By: #### L 500.2500, L100.0100 ####[facility] [address] [place], [address] RDW SD 48.1 fl High 35.1-43.9 [facility] Comment on above: Performed By: #### L 500.2500, L100.0100 ####[facility] [address] [place], [address] WBC (Bld) [#/Vol] 6.1 10*3/uL Normal 4.4-11.0 [facility] Comment on above: Performed By: #### L 500.2500, L100.0100 ####[facility] [address] [place], [address] Carbon dioxide measurementOr dered By: Linus Byers on 11-04-2024 CO2 [Moles/Vol] 32.3 mmol/L High 22.0-29.0 [facility] Chest PA and Lateralon 11-04 Chest PA and Lateral Normal [facility] Chloride measurementOrdered By: Linus Byers on 11-04-2024 Chloride [Moles/Vol] 105 mmol/L 96-108 [facility] Emergency Department Summary on 11-04-2024 Emergency Department Summary Normal [facility] Eosinophil percentageOrdered By: Linus Byers on 11-04-2024 Eosinophils/100 WBC (Bld) 2.1 % 0-5 [facility] Erythrocyte distribution wid th (RBC) [Ratio]Ordered By: Linus Byers on 11-04-2024 Erythrocyte distribution width (RBC) [Entitic vol] 48.1 fL High 35.1-43.9 [facility] Erythrocyte distribution wid th ratioOrdered By: Linus Byers on 11-04-2024 Erythrocyte distribution width (RBC) [Ratio] 13.2 % 11.6-14.6 [facility] Erythrocyte distribution wid th standard deviationOrdered By: Linus Byers on 11-04-2024 Erythrocyte distribution width (RBC) [Ratio] 48.1 fl High 35.1-43.9 [facility] Estimation of creatinine pietro aranceOrdered By: Linus Byers on 11-04-2024 Estimated Creatinine Clearance Calc 58.14 ml/min [facility] GFR/1.73 sq M.predicted gabbi g non-blacks MDRD (S/P/Bld) [Vol rate/Area]Ordered By: Linus Byers on 11-04-2024 Estimated GFR (MDRD) Non-Af Amer 65 >60 [facility] Comment on above: mL/min/1.73m2 CKD-EP I Creatinine Equation (2020) Glomerular filtration rate ( GFR) estimation/1.73 sq m using serum, plasma, or whole bOrdered By: Linus Byers on 11-04-2024 GFR/1.73 sq M.predicted among non-blacks MDRD (S/P/Bld) [Vol rate/Area] 65 mL/min/{1.73_m2} >60 [facility] Hematocrit Auto (Bld) [Volum e fraction]Ordered By: Linus Byers on 11-04-2024 Hematocrit (Bld) [Volume fraction] 38.4 % 37-47 [facility] Hemoglobin measurementOrdere d By: Linus Byers on 11-04-2024 Hemoglobin (Bld) [Mass/Vol] 12.1 g/dL 12.0-15. 0 [facility] Immature granulocytes/100 WB C Auto (Bld)Ordered By: Linus Byers on 11-04-2024 Immature granulocytes/100 WBC (Bld) 0.200 % 0.0-0.9 [facility] Comment on above: IG% - Immature Granu locytes (promyelocytes, myelocytes and metamyelocytes) > 1% indicates that a LEFT SHIFT is Present. L501.4021on 11-04-2024 Trop T High Sen 12 ng/L Normal <=14 [facility] Comment on above: Performed By: #### L 501.4021 ####[facility] [address] [place], [address] Lymphocytes Auto (Unsp spec) [#/Vol]Ordered By: Linus Byers on 11-04-2024 Lymphocytes (Bld) [#/Vol] 1.71 10*3/uL 0.83-4.5 1 [facility] Lymphocytes/100 WBC Auto (Un sp spec)Ordered By: Linus Byers on 11-04-2024 Lymphocytes/100 WBC (Bld) 28.2 % 19-41 [facility] MCV (mean corpuscular volume ) determinationOrdered By: Linus Byers on 11-04-2024 MCV (RBC) [Entitic vol] 99.2 fL High 81-99 [facility] Mean corpuscular hemoglobin (MCH) determinationOrdered By: Linus Byers on 11-04-2024 MCH (RBC) [Entitic mass] 31.3 pg 27.0-32.0 [facility] Mean corpuscular hemoglobin concentration (MCHC) determinationOrdered By: Linus Byers on 11-04-2024 MCHC (RBC) [Mass/Vol] 31.5 g/dL Low 32-36 [facility] Mean platelet volume determi nationOrdered By: Linus Byers on 11-04-2024 Platelet mean volume (Bld) [Entitic vol] 9.1 fL 6.2-12.0 [facility] Monocyte percentageOrdered B y: Linus Byers on 11-04-2024 Monocytes/100 WBC (Bld) 6.9 % 0-10 [facility] Neutrophil percentageOrdered By: Linus Byers on 11-04-2024 Neutrophils/100 WBC (Bld) 61.9 % 47-70 [facility] No Panel InformationOrdered By: Linus Byers on 11-04-2024 Troponin T High Sensitivity 12 ng/L <14 [facility] 12 ng/L <14 [facility] Nucleated red blood cell per centageOrdered By: Linus Byers on 11-04-2024 Nucleated RBC/100 WBC (Bld) [Ratio] 0 % 0-5 [facility] Platelet countOrdered By: Clemente Byers on 11-04-2024 Platelets (Bld) [#/Vol] 172 10*3/uL 150-450 [facility] RBC Auto (Bld) [#/Vol]Ordere d By: Linus Byers on 11-04-2024 RBC (Bld) [#/Vol] 3.87 10*6/uL Low 4.2-5.4 [facility] Serum creatinine measurement (mass/volume)Ordered By: Linus Byers on 11-04-2024 Creatinine [Mass/Vol] 0.96 mg/dL 0.70-1.20 [facility] Serum glucose measurement (m ass/volume)Ordered By: Linus Byers on 11-04-2024 Glucose [Mass/Vol] 114 mg/dL High 70-99 [facility] Serum or plasma anion gap de termination (moles/volume)Ordered By: Linus Byers on 11-04-2024 Anion gap [Moles/Vol] 6 mmol/L 5-15 [facility] Serum or plasma calcium areli urement (mass/volume)Ordered By: Linus Byers on 11-04-2024 Calcium [Mass/Vol] 8.9 mg/dL 7.6-11.0 [facility] Serum or plasma potassium me asurementOrdered By: Linus Byers on 11-04-2024 Potassium [Moles/Vol] 4.0 mmol/L 3.3-5.1 [facility] Serum or plasma sodium measu rement (moles/volume)Ordered By: Linus Byers on 11-04-2024 Sodium [Moles/Vol] 143 mmol/L 133-145 [facility] Serum or plasma urea nitroge n measurement (mass/volume)Ordered By: Linus Byers on 11-04-2024 Urea nitrogen [Mass/Vol] 15 mg/dL 4-19 [facility] White blood cell (WBC) count Ordered By: Linus Byers on 11-04-2024 WBC (Bld) [#/Vol] 6.1 10*3/uL 4.4-11.0 [facility] CNPNon 10-12-2024 CNPN Telephone (WebPesadosTRINITY) LUIS FMARCIA ([id number]) 1955 F CHT Date Time Provider Department 10/12/24 SHRUTI ONTIVEROS During your visit today, we recorded the following information about you: Rajiv Hendricks 10/12/2024 4:30 PM Signed Spoke with daughter to confirm EGD procedure date AND with my phone number [phone]. Allergies As of Date: 10/12/2024 Noted Allergy [...] Hyperthyroidism [E05.90 (more content not included)... [facility] 12 Lead E[facility] performed by [facility] on 10-04-2024 12 Lead EKG performed by [facility] Normal [facility] MARCIA MASCORRO ([id number]) 1955 F T Date Time Provider Department 10/04/24 SAVANNAH CRUZ During your visit today, we recorded the following information about you: Savannah Cruz, [employer]REIGHT LOADER 10/04/2024 10:37 AM Signed Sw left message for patient daughter to return Sw call to discuss transportation assistance needs. Savannah Cruz, FREIGHT LOADER 10/06/2024 9:49 AM Signed Sw left 2nd message for patient daughter to return Sw call to discuss transportation resource needs. Savannah Cruz, FREIGHT LOADER 10/10/2024 11:28 AM Signed Sw left message [...] 09/29/2016 [place] (more content not included)... Normal [facility] Cardiology Visit Reporton Cardiology Visit Report Normal [facility] Basic Metabolic Profile (BMP )on 10-02-2024 BUN Normal 7-18 [facility] Comment on above: Result Comment: Canc elled via OM: Order cancelled - Patient discharged Performed By: #### L 500.2500, L100.0100 ####[facility] [address] [place], [address] BUN/CRE Normal 10-20 [facility] Comment on above: Result Comment: Canc elled via OM: Order cancelled - Patient discharged Performed By: #### L 500.2500, L100.0100 ####[facility] [address] [place], [address] CA,Total Normal 8.5-10.1 [facility] Comment on above: Result Comment: Canc elled via OM: Order cancelled - Patient discharged Performed By: #### L 500.2500, L100.0100 ####[facility] [address] [place], [address] CL Normal 98-107 [facility] Comment on above: Result Comment: Canc elled via OM: Order cancelled - Patient discharged Performed By: #### L 500.2500, L100.0100 ####[facility] [address] [place], [address] CO2 Normal 21.0-32.0 [facility] Comment on above: Result Comment: Canc elled via OM: Order cancelled - Patient discharged Performed By: #### L 500.2500, L100.0100 ####[facility] [address] [place], [address] CREAT,SERUM Normal 0.55-1.02 [facility] Comment on above: Result Comment: Canc elled via OM: Order cancelled - Patient discharged Performed By: #### L 500.2500, L100.0100 ####[facility] [address] [place], [address] EST GFR Normal >60 [facility] Comment on above: Result Comment: Canc elled via OM: Order cancelled - Patient discharged Performed By: #### L 500.2500, L100.0100 ####[facility] [address] [place], [address] EST GFR - AA Normal >60 [facility] Comment on above: Result Comment: Canc elled via OM: Order cancelled - Patient discharged Performed By: #### L 500.2500, L100.0100 ####[facility] [address] [place], [address] GAP Normal 5-15 [facility] Comment on above: Result Comment: Canc elled via OM: Order cancelled - Patient discharged Performed By: #### L 500.2500, L100.0100 ####[facility] [address] [place], [address] GLU Normal 74-106 [facility] Comment on above: Result Comment: Canc elled via OM: Order cancelled - Patient discharged Performed By: #### L 500.2500, L100.0100 ####[facility] [address] [place], [address] Potassium Normal 3.5-5.1 [facility] Comment on above: Result Comment: Canc elled via OM: Order cancelled - Patient discharged Performed By: #### L 500.2500, L100.0100 ####[facility] [address] [place], [address] Basic Metabolic Profile (BMP) Normal 136-145 [facility] Comment on above: Result Comment: Canc elled via OM: Order cancelled - Patient discharged Performed By: #### L 500.2500, L100.0100 ####[facility] [address] [place], [address] CBC W/Diff, Automatedon -2 Absolute Neut Normal 2.0-7.7 [facility] Comment on above: Result Comment: Canc elled via OM: Order cancelled - Patient discharged Performed By: #### L 500.2500, L100.0100 ####[facility] [address] [place], [address] HCT Normal 37-47 [facility] Comment on above: Result Comment: Canc elled via OM: Order cancelled - Patient discharged Performed By: #### L 500.2500, L100.0100 ####[facility] [address] [place], [address] HGB Normal 12.0-15.0 [facility] Comment on above: Result Comment: Canc elled via OM: Order cancelled - Patient discharged Performed By: #### L 500.2500, L100.0100 ####[facility] [address] [place], [address] MCH Normal 27.0-32.0 [facility] Comment on above: Result Comment: Canc elled via OM: Order cancelled - Patient discharged Performed By: #### L 500.2500, L100.0100 ####[facility] [address] [place], [address] MCHC Normal 32-36 [facility] Comment on above: Result Comment: Canc elled via OM: Order cancelled - Patient discharged Performed By: #### L 500.2500, L100.0100 ####[facility] [address] [place], [address] MCV Normal 81-99 [facility] Comment on above: Result Comment: Canc elled via OM: Order cancelled - Patient discharged Performed By: #### L 500.2500, L100.0100 ####[facility] [address] [place], [address] NEUT% Normal 47-70 [facility] Comment on above: Result Comment: Canc elled via OM: Order cancelled - Patient discharged Performed By: #### L 500.2500, L100.0100 ####[facility] [address] [place], [address] PLT Normal 150-450 [facility] Comment on above: Result Comment: Canc elled via OM: Order cancelled - Patient discharged Performed By: #### L 500.2500, L100.0100 ####[facility] [address] [place], [address] RBC Normal 4.2-5.4 [facility] Comment on above: Result Comment: Canc elled via OM: Order cancelled - Patient discharged Performed By: #### L 500.2500, L100.0100 ####[facility] [address] [place], [address] RDW CV Normal 11.6-14.6 [facility] Comment on above: Result Comment: Canc elled via OM: Order cancelled - Patient discharged Performed By: #### L 500.2500, L100.0100 ####[facility] [address] [place], [address] RDW SD Normal 35.1-43.9 [facility] Comment on above: Result Comment: Canc elled via OM: Order cancelled - Patient discharged Performed By: #### L 500.2500, L100.0100 ####[facility] [address] [place], [address] WBC Normal 4.4-11.0 [facility] Comment on above: Result Comment: Canc elled via OM: Order cancelled - Patient discharged Performed By: #### L 500.2500, L100.0100 ####[facility] [address] [place], [address] Basic Metabolic Profile (BMP )on 10-01-2024 BUN Normal 7-18 [facility] Comment on above: Result Comment: Canc elled via OM: Order cancelled - Patient discharged Performed By: #### L 500.2500, L100.0100 ####[facility] [address] [place], [address] BUN/CRE Normal 10-20 [facility] Comment on above: Result Comment: Canc elled via OM: Order cancelled - Patient discharged Performed By: #### L 500.2500, L100.0100 ####[facility] [address] [place], [address] CA,Total Normal 8.5-10.1 [facility] Comment on above: Result Comment: Canc elled via OM: Order cancelled - Patient discharged Performed By: #### L 500.2500, L100.0100 ####[facility] [address] [place], [address] CL Normal 98-107 [facility] Comment on above: Result Comment: Canc elled via OM: Order cancelled - Patient discharged Performed By: #### L 500.2500, L100.0100 ####[facility] [address] [place], [address] CO2 Normal 21.0-32.0 [facility] Comment on above: Result Comment: Canc elled via OM: Order cancelled - Patient discharged Performed By: #### L 500.2500, L100.0100 ####[facility] [address] [place], [address] CREAT,SERUM Normal 0.55-1.02 [facility] Comment on above: Result Comment: Canc elled via OM: Order cancelled - Patient discharged Performed By: #### L 500.2500, L100.0100 ####[facility] [address] [place], [address] EST GFR Normal >60 [facility] Comment on above: Result Comment: Canc elled via OM: Order cancelled - Patient discharged Performed By: #### L 500.2500, L100.0100 ####[facility] [address] [place], [address] EST GFR - AA Normal >60 [facility] Comment on above: Result Comment: Canc elled via OM: Order cancelled - Patient discharged Performed By: #### L 500.2500, L100.0100 ####[facility] [address] [place], [address] GAP Normal 5-15 [facility] Comment on above: Result Comment: Canc elled via OM: Order cancelled - Patient discharged Performed By: #### L 500.2500, L100.0100 ####[facility] [address] [place], [address] GLU Normal 74-106 [facility] Comment on above: Result Comment: Canc elled via OM: Order cancelled - Patient discharged Performed By: #### L 500.2500, L100.0100 ####[facility] [address] [place], [address] Potassium Normal 3.5-5.1 [facility] Comment on above: Result Comment: Canc elled via OM: Order cancelled - Patient discharged Performed By: #### L 500.2500, L100.0100 ####[facility] [address] [place], [address] Basic Metabolic Profile (BMP) Normal 136-145 [facility] Comment on above: Result Comment: Canc elled via OM: Order cancelled - Patient discharged Performed By: #### L 500.2500, L100.0100 ####[facility] [address] [place], [address] CBC W/Diff, Automatedon 01-2 -2024 Absolute Neut Normal 2.0-7.7 [facility] Comment on above: Result Comment: Canc elled via OM: Order cancelled - Patient discharged Performed By: #### L 500.2500, L100.0100 ####[facility] [address] [place], [address] HCT Normal 37-47 [facility] Comment on above: Result Comment: Canc elled via OM: Order cancelled - Patient discharged Performed By: #### L 500.2500, L100.0100 ####[facility] [address] [place], [address] HGB Normal 12.0-15.0 [facility] Comment on above: Result Comment: Canc elled via OM: Order cancelled - Patient discharged Performed By: #### L 500.2500, L100.0100 ####[facility] [address] [place], [address] MCH Normal 27.0-32.0 [facility] Comment on above: Result Comment: Canc elled via OM: Order cancelled - Patient discharged Performed By: #### L 500.2500, L100.0100 ####[facility] [address] [place], [address] MCHC Normal 32-36 [facility] Comment on above: Result Comment: Canc elled via OM: Order cancelled - Patient discharged Performed By: #### L 500.2500, L100.0100 ####[facility] [address] [place], [address] MCV Normal 81-99 [facility] Comment on above: Result Comment: Canc elled via OM: Order cancelled - Patient discharged Performed By: #### L 500.2500, L100.0100 ####[facility] [address] [place], [address] NEUT% Normal 47-70 [facility] Comment on above: Result Comment: Canc elled via OM: Order cancelled - Patient discharged Performed By: #### L 500.2500, L100.0100 ####[facility] [address] [place], [address] PLT Normal 150-450 [facility] Comment on above: Result Comment: Canc elled via OM: Order cancelled - Patient discharged Performed By: #### L 500.2500, L100.0100 ####[facility] [address] [place], [address] RBC Normal 4.2-5.4 [facility] Comment on above: Result Comment: Canc elled via OM: Order cancelled - Patient discharged Performed By: #### L 500.2500, L100.0100 ####[facility] [address] [place], [address] RDW CV Normal 11.6-14.6 [facility] Comment on above: Result Comment: Canc elled via OM: Order cancelled - Patient discharged Performed By: #### L 500.2500, L100.0100 ####[facility] [address] [place], [address] RDW SD Normal 35.1-43.9 [facility] Comment on above: Result Comment: Canc elled via OM: Order cancelled - Patient discharged Performed By: #### L 500.2500, L100.0100 ####[facility] [address] [place], [address] WBC Normal 4.4-11.0 [facility] Comment on above: Result Comment: Canc elled via OM: Order cancelled - Patient discharged Performed By: #### L 500.2500, L100.0100 ####[facility] [address] [place], [address] Absolute lymphocyte countOrd ered By: Jones Gregory on 09-30-2024 Lymphocytes Auto (Unsp spec) [#/Vol] 1.38 10*3/uL 0.83-4.51 [facility] Absolute neutrophil countOrd ered By: Jones Gregory on 09-30-2024 Neutrophils (Bld) [#/Vol] 13.6 10*3/uL High 2.0-7.7 [facility] Automated lymphocyte count a s percentage of total leukocytesOrdered By: Jones Gregory on 09-30-2024 Lymphocytes/100 WBC Auto (Unsp spec) 9.0 % Low 19-41 [facility] Basic Metabolic Profile (BMP )on 09-30-2024 BUN/CRE 38.9 RATIO High 10-20 [facility] Comment on above: Performed By: #### L 500.2500, L100.0100, L501.5200, L501.2300 ####[facility] [address] [place], [address] CA,Total 10.1 mg/dL Normal 8.5-10.1 [facility] Comment on above: Performed By: #### L 500.2500, L100.0100, L501.5200, L501.2300 ####[facility] [address] [place], [address] Chloride [Moles/Vol] 104 mmol/L Normal 98-107 [facility] Comment on above: Performed By: #### L 500.2500, L100.0100, L501.5200, L501.2300 ####[facility] [address] [place], [address] CO2 [Moles/Vol] 31.0 mmol/L Normal 21.0-32.0 [facility] Comment on above: Performed By: #### L 500.2500, L100.0100, L501.5200, L501.2300 ####[facility] [address] [place], [address] Creatinine [Mass/Vol] 0.67 mg/dL Normal 0.55-1.02 [facility] Comment on above: Result Comment: The validity of the calculated GFR GFRAA in patients over70 years has not been determined. Clinical correlation isessential. Performed By: #### L 500.2500, L100.0100, L501.5200, L501.2300 ####[facility] [address] [place], [address] ECRCL 68.47 ml/min Normal [facility] Comment on above: Performed By: #### L 500.2500, L100.0100, L501.5200, L501.2300 ####[facility] [address] [place], [address] EST GFR - AA 113 mL/min Normal >60 [facility] Comment on above: Result Comment: Afri can [place] GFR Calc Performed By: #### L 500.2500, L100.0100, L501.5200, L501.2300 ####[facility] [address] [place], [address] GAP 4 Low 5-15 [facility] Comment on above: Performed By: #### L 500.2500, L100.0100, L501.5200, L501.2300 ####[facility] [address] [place], [address] GFR/1.73 sq M.predicted among non-blacks MDRD (S/P/Bld) [Vol rate/Area] 93 mL/min/{1.73_m2} Normal >60 [facility] Comment on above: Result Comment: Non- GFR Calc Performed By: #### L 500.2500, L100.0100, L501.5200, L501.2300 ####[facility] [address] [place], [address] Glucose [Mass/Vol] 137 mg/dL High 74-106 [facility] Comment on above: Result Comment: Fast ing Glucose result greater than or equal to 126 mg/dLsuggests DIABETES MELLITUS per A.D.A. criteria. Performed By: #### L 500.2500, L100.0100, L501.5200, L501.2300 ####[facility] [address] [place], [address] Potassium [Moles/Vol] 4.2 mmol/L Normal 3.5-5.1 [facility] Comment on above: Performed By: #### L 500.2500, L100.0100, L501.5200, L501.2300 ####[facility] [address] [place], [address] Sodium [Moles/Vol] 139 mmol/L Normal 136-145 [facility] Comment on above: Performed By: #### L 500.2500, L100.0100, L501.5200, L501.2300 ####[facility] [address] [place], [address] Urea nitrogen [Mass/Vol] 26 mg/dL High 7-18 [facility] Comment on above: Performed By: #### L 500.2500, L100.0100, L501.5200, L501.2300 ####[facility] [address] [place], [address] Basophil percentageOrdered B y: Jones Gregory on 09-30-2024 Basophils/100 WBC (Bld) 0.1 % 0-1 [facility] Blood urea nitrogen (BUN)/cr eatinine ratioOrdered By: Jones Gregory on 09-30-2024 Urea nitrogen/Creatinine [Mass ratio] 38.9 mg/mg High 10- [facility] CBC W/Diff, Automatedon 09-08 Absolute Lymph 1.38 X10 3/uL Normal 0.83-4.51 [facility] Comment on above: Performed By: #### L 500.2500, L100.0100, L501.5200, L501.2300 ####[facility] [address] [place], [address] Absolute Neut 13.6 X10 3/uL High 2.0-7.7 [facility] Comment on above: Performed By: #### L 500.2500, L100.0100, L501.5200, L501.2300 ####[facility] [address] [place], [address] Basophils/100 WBC (Bld) 0.1 % Normal 0-1 [facility] Comment on above: Performed By: #### L 500.2500, L100.0100, L501.5200, L501.2300 ####[facility] [address] [place], [address] Eosinophils/100 WBC (Bld) 0.0 % Normal 0-5 [facility] Comment on above: Performed By: #### L 500.2500, L100.0100, L501.5200, L501.2300 ####[facility] [address] [place], [address] Erythrocyte distribution width (RBC) [Ratio] 12.9 % Normal 11.6-14.6 [facility] Comment on above: Performed By: #### L 500.2500, L100.0100, L501.5200, L501.2300 ####[facility] [address] [place], [address] Hematocrit (Bld) [Volume fraction] 40.9 % Normal 37-47 [facility] Comment on above: Performed By: #### L 500.2500, L100.0100, L501.5200, L501.2300 ####[facility] [address] [place], [address] Hemoglobin (Bld) [Mass/Vol] 13.3 g/dL Normal 12.0-15. 0 [facility] Comment on above: Performed By: #### L 500.2500, L100.0100, L501.5200, L501.2300 ####[facility] [address] [place], [address] IG% 0.600 Normal 0.0-0.9 [facility] Comment on above: Result Comment: IG% - Immature Granulocytes (promyelocytes, myelocytes andmetamyelocytes) > 1% indicates that a LEFT SHIFT is Present. Performed By: #### L 500.2500, L100.0100, L501.5200, L501.2300 ####[facility] [address] [place], [address] Lymphocytes/100 WBC (Bld) 9.0 % Low 19-41 [facility] Comment on above: Performed By: #### L 500.2500, L100.0100, L501.5200, L501.2300 ####[facility] [address] [place], [address] MCH (RBC) [Entitic mass] 31.1 pg Normal 27.0-32.0 [facility] Comment on above: Performed By: #### L 500.2500, L100.0100, L501.5200, L501.2300 ####[facility] [address] [place], [address] MCHC (RBC) [Mass/Vol] 32.5 g/dL Normal 32-36 [facility] Comment on above: Performed By: #### L 500.2500, L100.0100, L501.5200, L501.2300 ####[facility] [address] [place], [address] MCV (RBC) [Entitic vol] 95.6 fL Normal 81-99 [facility] Comment on above: Performed By: #### L 500.2500, L100.0100, L501.5200, L501.2300 ####[facility] [address] [place], [address] Monocytes/100 WBC (Bld) 2.3 % Normal 0-10 [facility] Comment on above: Performed By: #### L 500.2500, L100.0100, L501.5200, L501.2300 ####[facility] [address] [place], [address] Neutrophils/100 WBC (Bld) 88.0 % High 47-70 [facility] Comment on above: Performed By: #### L 500.2500, L100.0100, L501.5200, L501.2300 ####[facility] [address] [place], [address] Nucleated RBC (Bld) [#/Vol] 0 10*3/uL Normal 0-5 [facility] Comment on above: Performed By: #### L 500.2500, L100.0100, L501.5200, L501.2300 ####[facility] [address] [place], [address] Platelet mean volume (Bld) [Entitic vol] 9.3 fL Normal 6.2-12.0 [facility] Comment on above: Performed By: #### L 500.2500, L100.0100, L501.5200, L501.2300 ####[facility] [address] [place], [address] Platelets (Bld) [#/Vol] 242 10*3/uL Normal 150-450 [facility] Comment on above: Performed By: #### L 500.2500, L100.0100, L501.5200, L501.2300 ####[facility] [address] [place], [address] RBC (Bld) [#/Vol] 4.28 10*6/uL Normal 4.2-5.4 [facility] Comment on above: Performed By: #### L 500.2500, L100.0100, L501.5200, L501.2300 ####[facility] [address] [place], [address] RDW SD 45.0 fl High 35.1-43.9 [facility] Comment on above: Performed By: #### L 500.2500, L100.0100, L501.5200, L501.2300 ####[facility] [address] [place], [address] WBC (Bld) [#/Vol] 15.4 10*3/uL High 4.4-11.0 [facility] Comment on above: Performed By: #### L 500.2500, L100.0100, L501.5200, L501.2300 ####[facility] [address] [place], [address] Carbon dioxide measurementOr dered By: Jones Gregory on 09-30-2024 CO2 [Moles/Vol] 31.0 mmol/L 21.0-32.0 [facility] Chloride measurementOrdered By: Jones Gregory on 09-30-2024 Chloride [Moles/Vol] 104 mmol/L 98-107 [facility] Eosinophil percentageOrdered By: Jones Gregory on 09-30-2024 Eosinophils/100 WBC (Bld) 0.0 % 0-5 [facility] Erythrocyte distribution wid th (RBC) [Ratio]Ordered By: Jones Gregory on 09-30-2024 Erythrocyte distribution width (RBC) [Entitic vol] 45.0 fL High 35.1-43.9 [facility] Erythrocyte distribution wid th ratioOrdered By: Jones Gregory on 09-30-2024 Erythrocyte distribution width (RBC) [Ratio] 12.9 % 11.6-14.6 [facility] Erythrocyte distribution wid th standard deviationOrdered By: Jones Gregory on 09-30-2024 Erythrocyte distribution width (RBC) [Ratio] 45.0 fl High 35.1-43.9 [facility] Estimated glomerular filtrat ion rate (GFR) AmericanOrdered By: Jones Gregory on 09-30-2024 Estimated GFR (MDRD) Amer 113 mL/min >60 [facility] Comment on above: GFR Calc Estimation of creatinine pietro aranceOrdered By: Jones Gregory on 09-30-2024 Estimated Creatinine Clearance Calc 68.47 ml/min [facility] Glomerular filtration rate ( GFR) estimationOrdered By: Jones Gregory on 09-30-2024 Estimated GFR (MDRD) Non-Af Amer 93 mL/min >60 [facility] Comment on above: Non- GFR Calc GFR/1.73 sq M.predicted among non-blacks MDRD (S/P/Bld) [Vol rate/Area] 93 mL/min/{1.73_m2} >60 [facility] Glucose measurementOrdered B y: Jones Gregory on 09-30-2024 Glucose [Mass/Vol] 137 mg/dL High 74-106 [facility] Comment on above: Fasting Glucose resu lt greater than or equal to 126 mg/dL suggests DIABETES MELLITUS per A.D.A. criteria. Hematocrit Auto (Bld) [Volum e fraction]Ordered By: Jones Gregory on 09-30-2024 Hematocrit (Bld) [Volume fraction] 40.9 % 37-47 [facility] Hemoglobin measurementOrdere d By: Jones Gregory on 09-30-2024 Hemoglobin (Bld) [Mass/Vol] 13.3 g/dL 12.0-15. 0 [facility] Immature granulocytes/100 WB C Auto (Bld)Ordered By: Jones Gregory on 09-30-2024 Immature granulocytes/100 WBC (Bld) 0.600 % 0.0-0.9 [facility] Comment on above: IG% - Immature Granu locytes (promyelocytes, myelocytes and metamyelocytes) > 1% indicates that a LEFT SHIFT is Present. Lymphocytes Auto (Unsp spec) [#/Vol]Ordered By: Jones Gregory on 09-30-2024 Lymphocytes (Bld) [#/Vol] 1.38 10*3/uL 0.83-4.5 1 [facility] Lymphocytes/100 WBC Auto (Un sp spec)Ordered By: Jones Gregory on 09-30-2024 Lymphocytes/100 WBC (Bld) 9.0 % Low 19-41 [facility] MCV (mean corpuscular volume ) determinationOrdered By: Jones Gregory on 09-30-2024 MCV (RBC) [Entitic vol] 95.6 fL 81-99 [facility] Magnesiumon 09-30-2024 Magnesium [Mass/Vol] 2.2 mg/dL Normal 1.6-2.6 [facility] Comment on above: Performed By: #### L 500.2500, L100.0100, L501.5200, L501.2300 ####[facility] [address] [place], [place], [id number] Magnesium measurementOrdered By: Jones Gregory on 09-30-2024 Magnesium [Mass/Vol] 2.2 mg/dL 1.6-2.6 [facility] Mean corpuscular hemoglobin (MCH) determinationOrdered By: Jones Gregory on 09-30-2024 MCH (RBC) [Entitic mass] 31.1 pg 27.0-32.0 [facility] Mean corpuscular hemoglobin concentration (MCHC) determinationOrdered By: Jones Gregory on 09-30-2024 MCHC (RBC) [Mass/Vol] 32.5 g/dL 32-36 [facility] Mean platelet volume determi nationOrdered By: Jones Gregory on 09-30-2024 Platelet mean volume (Bld) [Entitic vol] 9.3 fL 6.2-12.0 [facility] Monocyte percentageOrdered B y: Jones Gregory on 09-30-2024 Monocytes/100 WBC (Bld) 2.3 % 0-10 [facility] Neutrophil percentageOrdered By: Jones Gregory on 09-30-2024 Neutrophils/100 WBC (Bld) 88.0 % High 47-70 [facility] Nucleated red blood cell per centageOrdered By: Jones Gregory on 09-30-2024 Nucleated RBC/100 WBC (Bld) [Ratio] 0 % 0-5 [facility] Phosphoruson 09-30-2024 Phosphate [Mass/Vol] 3.9 mg/dL Normal 2.5-4.9 [facility] Comment on above: Performed By: #### L 500.2500, L100.0100, L501.5200, L501.2300 ####[facility] [address] [place], [place], [address] Phosphorus measurementOrdere d By: Jones Gregory on 09-30-2024 Phosphorus Level 3.9 mg/dL 2.5-4.9 [facility] Platelet countOrdered By: Dontae Gregory on 09-30-2024 Platelets (Bld) [#/Vol] 242 10*3/uL 150-450 [facility] Potassium measurementOrdered By: Jones Gregory on 09-30-2024 Potassium [Moles/Vol] 4.2 mmol/L 3.5-5.1 [facility] RBC Auto (Bld) [#/Vol]Ordere d By: Jones Gregory on 09-30-2024 RBC (Bld) [#/Vol] 4.28 10*6/uL 4.2-5.4 [facility] Serum anion gap measurementO rdered By: Jones Gregory on 09-30-2024 Anion gap [Moles/Vol] 4 mmol/L Low 5-15 [facility] Serum or plasma calcium areli urement (mass/volume)Ordered By: Jones Gregory on 09-30-2024 Calcium [Mass/Vol] 10.1 mg/dL 8.5-10.1 [facility] Serum or plasma creatinine m easurement (mass/volume)Ordered By: Jones Gregory on 09-30-2024 Creatinine [Mass/Vol] 0.67 mg/dL 0.55-1.02 [facility] Comment on above: The validity of the calculated GFR & GFRAA in patients over 70 years has not been determined. Clinical correlation is essential. Serum or plasma urea nitroge n measurement (mass/volume)Ordered By: Jones Gregory on 09-30-2024 Urea nitrogen [Mass/Vol] 26 mg/dL High 7-18 [facility] Sodium levelOrdered By: Lewis Gregory on 09-30-2024 Sodium [Moles/Vol] 139 mmol/L 136-145 [facility] White blood cell (WBC) count Ordered By: Jones Gregory on 09-30-2024 WBC (Bld) [#/Vol] 15.4 10*3/uL High 4.4-11.0 [facility] Basic Metabolic Profile (BMP )on 09-29-2024 BUN/CRE 25.5 RATIO High 10-20 [facility] Comment on above: Performed By: #### L 500.2500, L100.0100 ####[facility] [address] [place], [address] CA,Total 10.0 mg/dL Normal 8.5-10.1 [facility] Comment on above: Performed By: #### L 500.2500, L100.0100 ####[facility] [address] [place], [address] Chloride [Moles/Vol] 105 mmol/L Normal 98-107 [facility] Comment on above: Performed By: #### L 500.2500, L100.0100 ####[facility] [address] [place], [address] CO2 [Moles/Vol] 27.0 mmol/L Normal 21.0-32.0 [facility] Comment on above: Performed By: #### L 500.2500, L100.0100 ####[facility] [address] [place], [address] Creatinine [Mass/Vol] 0.78 mg/dL Normal 0.55-1.02 [facility] Comment on above: Result Comment: The validity of the calculated GFR GFRAA in patients over70 years has not been determined. Clinical correlation isessential. Performed By: #### L 500.2500, L100.0100 ####[facility] [address] [place], [address] ECRCL 68.51 ml/min Normal [facility] Comment on above: Performed By: #### L 500.2500, L100.0100 ####[facility] [address] [place], [address] EST GFR - AA 94 mL/min Normal >60 [facility] Comment on above: Result Comment: Afri can [place] GFR Calc Performed By: #### L 500.2500, L100.0100 ####[facility] [address] [place], [address] GAP 8 Normal 5-15 [facility] Comment on above: Performed By: #### L 500.2500, L100.0100 ####[facility] [address] [place], [address] GFR/1.73 sq M.predicted among non-blacks MDRD (S/P/Bld) [Vol rate/Area] 78 mL/min/{1.73_m2} Normal >60 [facility] Comment on above: Result Comment: Non- GFR Calc Performed By: #### L 500.2500, L100.0100 ####[facility] [address] [place], [address] Glucose [Mass/Vol] 178 mg/dL High 74-106 [facility] Comment on above: Result Comment: Fast ing Glucose result greater than or equal to 126 mg/dLsuggests DIABETES MELLITUS per A.D.A. criteria. Performed By: #### L 500.2500, L100.0100 ####[facility] [address] [place], [address] Potassium [Moles/Vol] 4.0 mmol/L Normal 3.5-5.1 [facility] Comment on above: Performed By: #### L 500.2500, L100.0100 ####[facility] [address] [place], [address] Sodium [Moles/Vol] 140 mmol/L Normal 136-145 [facility] Comment on above: Performed By: #### L 500.2500, L100.0100 ####[facility] [address] [place], [address] Urea nitrogen [Mass/Vol] 20 mg/dL High 7-18 [facility] Comment on above: Performed By: #### L 500.2500, L100.0100 ####[facility] [address] [place], [address] CBC W/Diff, Automatedon 09-08 Absolute Lymph 0.97 X10 3/uL Normal 0.83-4.51 [facility] Comment on above: Performed By: #### L 500.2500, L100.0100 ####[facility] [address] [place], [address] Absolute Neut 5.7 X10 3/uL Normal 2.0-7.7 [facility] Comment on above: Performed By: #### L 500.2500, L100.0100 ####[facility] [address] [place], [address] Basophils/100 WBC (Bld) 0.1 % Normal 0-1 [facility] Comment on above: Performed By: #### L 500.2500, L100.0100 ####[facility] [address] [place], [address] Eosinophils/100 WBC (Bld) 0.0 % Normal 0-5 [facility] Comment on above: Performed By: #### L 500.2500, L100.0100 ####[facility] [address] [place], [address] Erythrocyte distribution width (RBC) [Ratio] 12.7 % Normal 11.6-14.6 [facility] Comment on above: Performed By: #### L 500.2500, L100.0100 ####[facility] [address] [place], [address] Hematocrit (Bld) [Volume fraction] 40.0 % Normal 37-47 [facility] Comment on above: Performed By: #### L 500.2500, L100.0100 ####[facility] [address] [place], [address] Hemoglobin (Bld) [Mass/Vol] 12.7 g/dL Normal 12.0-15. 0 [facility] Comment on above: Performed By: #### L 500.2500, L100.0100 ####[facility] [address] [place], [address] IG% 0.400 Normal 0.0-0.9 [facility] Comment on above: Result Comment: IG% - Immature Granulocytes (promyelocytes, myelocytes andmetamyelocytes) > 1% indicates that a LEFT SHIFT is Present. Performed By: #### L 500.2500, L100.0100 ####[facility] [address] [place], [address] Lymphocytes/100 WBC (Bld) 14.3 % Low 19-41 [facility] Comment on above: Performed By: #### L 500.2500, L100.0100 ####[facility] [address] [place], [address] MCH (RBC) [Entitic mass] 30.2 pg Normal 27.0-32.0 [facility] Comment on above: Performed By: #### L 500.2500, L100.0100 ####[facility] [address] [place], [address] MCHC (RBC) [Mass/Vol] 31.8 g/dL Low 32-36 [facility] Comment on above: Performed By: #### L 500.2500, L100.0100 ####[facility] [address] [place], [address] MCV (RBC) [Entitic vol] 95.2 fL Normal 81-99 [facility] Comment on above: Performed By: #### L 500.2500, L100.0100 ####[facility] [address] [place], [address] Monocytes/100 WBC (Bld) 0.9 % Normal 0-10 [facility] Comment on above: Performed By: #### L 500.2500, L100.0100 ####[facility] [address] [place], [address] Neutrophils/100 WBC (Bld) 84.3 % High 47-70 [facility] Comment on above: Performed By: #### L 500.2500, L100.0100 ####[facility] [address] [place], [address] Nucleated RBC (Bld) [#/Vol] 0 10*3/uL Normal 0-5 [facility] Comment on above: Performed By: #### L 500.2500, L100.0100 ####[facility] [address] [place], [address] Platelet mean volume (Bld) [Entitic vol] 9.3 fL Normal 6.2-12.0 [facility] Comment on above: Performed By: #### L 500.2500, L100.0100 ####[facility] [address] [place], [address] Platelets (Bld) [#/Vol] 224 10*3/uL Normal 150-450 [facility] Comment on above: Performed By: #### L 500.2500, L100.0100 ####[facility] [address] [place], [address] RBC (Bld) [#/Vol] 4.20 10*6/uL Normal 4.2-5.4 [facility] Comment on above: Performed By: #### L 500.2500, L100.0100 ####[facility] [address] [place], [address] RDW SD 44.1 fl High 35.1-43.9 [facility] Comment on above: Performed By: #### L 500.2500, L100.0100 ####[facility] [address] [place], [address] WBC (Bld) [#/Vol] 6.8 10*3/uL Normal 4.4-11.0 [facility] Comment on above: Performed By: #### L 500.2500, L100.0100 ####[facility] [address] [place], [address] 12 Lead EKGon 09-28-2024 12 Lead EKG Normal [facility] BNP (brain natriuretic pepti de measurement)Ordered By: Keisha Williamson on 09-28-2024 Natriuretic peptide B (Bld) [Mass/Vol] 274.6 pg/mL High 0-100 [facility] BNP,B-Type NATRIURETIC PEPTI Veronica 09-28-2024 Natriuretic peptide B (Bld) [Mass/Vol] 274.6 pg/mL High 0-100 [facility] Comment on above: Performed By: #### L 503.6620 ####[facility] [address] [place], [address] Basic Metabolic Profile (BMP )on 09-28-2024 BUN/CRE 17.0 RATIO Normal 10-20 [facility] Comment on above: Order Comment: 1Y Performed By: #### L 500.2500, L501.5425, L100.0100 ####[facility] [address] [place], [address] CA,Total 9.4 mg/dL Normal 8.5-10.1 [facility] Comment on above: Order Comment: 1Y Performed By: #### L 500.2500, L501.5425, L100.0100 ####[facility] [address] [place], [address] Chloride [Moles/Vol] 103 mmol/L Normal 98-107 [facility] Comment on above: Order Comment: 1Y Performed By: #### L 500.2500, L501.5425, L100.0100 ####[facility] [address] [place], [address] CO2 [Moles/Vol] 30.0 mmol/L Normal 21.0-32.0 [facility] Comment on above: Order Comment: 1Y Performed By: #### L 500.2500, L501.5425, L100.0100 ####[facility] [address] [place], [address] Creatinine [Mass/Vol] 0.76 mg/dL Normal 0.55-1.02 [facility] Comment on above: Order Comment: 1Y Result Comment: The validity of the calculated GFR GFRAA in patients over70 years has not been determined. Clinical correlation isessential. Performed By: #### L 500.2500, L501.5425, L100.0100 ####[facility] [address] [place], [address] ECRCL 74.64 ml/min Normal [facility] Comment on above: Order Comment: 1Y Performed By: #### L 500.2500, L501.5425, L100.0100 ####[facility] [address] [place], [address] EST GFR - AA 97 mL/min Normal >60 [facility] Comment on above: Order Comment: 1Y Result Comment: Afri can [place] GFR Calc Performed By: #### L 500.2500, L501.5425, L100.0100 ####[facility] [address] [place], [address] GAP 4 Low 5-15 [facility] Comment on above: Order Comment: 1Y Performed By: #### L 500.2500, L501.5425, L100.0100 ####[facility] [address] [place], [address] GFR/1.73 sq M.predicted among non-blacks MDRD (S/P/Bld) [Vol rate/Area] 80 mL/min/{1.73_m2} Normal >60 [facility] Comment on above: Order Comment: 1Y Result Comment: Non- GFR Calc Performed By: #### L 500.2500, L501.5425, L100.0100 ####[facility] [address] [place], [address] Glucose [Mass/Vol] 100 mg/dL Normal 74-106 [facility] Comment on above: Order Comment: 1Y Result Comment: Fast ing Glucose result from 100 to 125 mg/dLsuggests IMPAIRED HOMEOSTASIS per A.D.A. criteria. Performed By: #### L 500.2500, L501.5425, L100.0100 ####[facility] [address] [place], [address] Potassium [Moles/Vol] 4.4 mmol/L Normal 3.5-5.1 [facility] Comment on above: Order Comment: 1Y Performed By: #### L 500.2500, L501.5425, L100.0100 ####[facility] [address] [place], [address] Sodium [Moles/Vol] 138 mmol/L Normal 136-145 [facility] Comment on above: Order Comment: 1Y Performed By: #### L 500.2500, L501.5425, L100.0100 ####[facility] [address] [place], [address] Urea nitrogen [Mass/Vol] 13 mg/dL Normal 7-18 [facility] Comment on above: Order Comment: 1Y Performed By: #### L 500.2500, L501.5425, L100.0100 ####[facility] [address] [place], [address] CBC W/Diff, Automatedon 09-08 Absolute Lymph 2.14 X10 3/uL Normal 0.83-4.51 [facility] Comment on above: Performed By: #### L 500.2500, L501.5425, L100.0100 ####[facility] [address] [place], [address] Absolute Neut 4.6 X10 3/uL Normal 2.0-7.7 [facility] Comment on above: Performed By: #### L 500.2500, L501.5425, L100.0100 ####[facility] [address] [place], [address] Basophils/100 WBC (Bld) 0.8 % Normal 0-1 [facility] Comment on above: Performed By: #### L 500.2500, L501.5425, L100.0100 ####[facility] [address] [place], [address] Eosinophils/100 WBC (Bld) 2.7 % Normal 0-5 [facility] Comment on above: Performed By: #### L 500.2500, L501.5425, L100.0100 ####[facility] [address] [place], [address] Erythrocyte distribution width (RBC) [Ratio] 12.8 % Normal 11.6-14.6 [facility] Comment on above: Performed By: #### L 500.2500, L501.5425, L100.0100 ####[facility] [address] [place], [address] Hematocrit (Bld) [Volume fraction] 40.4 % Normal 37-47 [facility] Comment on above: Performed By: #### L 500.2500, L501.5425, L100.0100 ####[facility] [address] [place], [address] Hemoglobin (Bld) [Mass/Vol] 13.4 g/dL Normal 12.0-15. 0 [facility] Comment on above: Performed By: #### L 500.2500, L501.5425, L100.0100 ####[facility] [address] [place], [address] IG% 0.300 Normal 0.0-0.9 [facility] Comment on above: Result Comment: IG% - Immature Granulocytes (promyelocytes, myelocytes andmetamyelocytes) > 1% indicates that a LEFT SHIFT is Present. Performed By: #### L 500.2500, L501.5425, L100.0100 ####[facility] [address] [place], [address] Lymphocytes/100 WBC (Bld) 28.4 % Normal 19-41 [facility] Comment on above: Performed By: #### L 500.2500, L501.5425, L100.0100 ####[facility] [address] [place], [address] MCH (RBC) [Entitic mass] 31.4 pg Normal 27.0-32.0 [facility] Comment on above: Performed By: #### L 500.2500, L501.5425, L100.0100 ####[facility] [address] [place], [address] MCHC (RBC) [Mass/Vol] 33.2 g/dL Normal 32-36 [facility] Comment on above: Performed By: #### L 500.2500, L501.5425, L100.0100 ####[facility] [address] [place], [address] MCV (RBC) [Entitic vol] 94.6 fL Normal 81-99 [facility] Comment on above: Performed By: #### L 500.2500, L501.5425, L100.0100 ####[facility] [address] [place], [address] Monocytes/100 WBC (Bld) 6.6 % Normal 0-10 [facility] Comment on above: Performed By: #### L 500.2500, L501.5425, L100.0100 ####[facility] [address] [place], [address] Neutrophils/100 WBC (Bld) 61.2 % Normal 47-70 [facility] Comment on above: Performed By: #### L 500.2500, L501.5425, L100.0100 ####[facility] [address] [place], [address] Nucleated RBC (Bld) [#/Vol] 0 10*3/uL Normal 0-5 [facility] Comment on above: Performed By: #### L 500.2500, L501.5425, L100.0100 ####[facility] [address] [place], [address] Platelet mean volume (Bld) [Entitic vol] 8.9 fL Normal 6.2-12.0 [facility] Comment on above: Performed By: #### L 500.2500, L501.5425, L100.0100 ####[facility] [address] [place], [address] Platelets (Bld) [#/Vol] 230 10*3/uL Normal 150-450 [facility] Comment on above: Performed By: #### L 500.2500, L501.5425, L100.0100 ####[facility] [address] [place], [address] RBC (Bld) [#/Vol] 4.27 10*6/uL Normal 4.2-5.4 [facility] Comment on above: Performed By: #### L 500.2500, L501.5425, L100.0100 ####[facility] [address] [place], [address] RDW SD 43.9 fl Normal 35.1-43.9 [facility] Comment on above: Performed By: #### L 500.2500, L501.5425, L100.0100 ####[facility] [address] [place], [address] WBC (Bld) [#/Vol] 7.5 10*3/uL Normal 4.4-11.0 [facility] Comment on above: Performed By: #### L 500.2500, L501.5425, L100.0100 ####[facility] [address] [place], [address] Chest 1 View (Portable)on Chest 1 View (Portable) Normal [facility] Summary on 09-28-2024 Emergency Department Summary Normal [facility] H AND P Exam - Hospitaliston 09-28-2024 H&P Exam - Hospitalist Normal [facility] Influenza virus A and B and SARS-CoV-2 (COVID-19) and Respiratory syncytial virus RNAOrdered By: Keisha Williamson on 09-28-2024 SARS-CoV-2 (COVID-19) RNA KAYDEN+probe Ql (Unsp spec) [facility] L501.4020on 09-28-2024 TROPONIN-I HS 13 pg/mL Normal 3.0-54.0 [facility] Comment on above: Result Comment: Plea se Note: New Test Units and Gender Specific Reference Ranges. For more information see Policy Stat Procedure [place] High Sensitivity Troponin (TNIH) and attachments. Performed By: #### L 501.4020 ####[facility] [address] [place], [address] L501.5425on 09-28-2024 TROPONIN-I HS 14 pg/mL Normal 3.0-54.0 [facility] Comment on above: Order Comment: 1Y Result Comment: Plea se Note: New Test Units and Gender Specific Reference Ranges. For more information see Policy Stat Procedure [place] High Sensitivity Troponin (TNIH) and attachments. Performed By: #### L 500.2500, L501.5425, L100.0100 ####[facility] [address] [place], [address] M100.678on 09-28-2024 M100.678 Normal [facility] Comment on above: Performed By: #### M 100.678 ####[facility] [address] [place], [address] RESPIRATORY PANEL MOLECULARo n 09-28-2024 RP PANEL Normal [facility] Comment on above: Performed By: #### M 100.638 ####[facility] [address] [facility] [place], [address] Respiratory pathogens DNA an d RNA panel KAYDEN+probe (Resp)Ordered By: Gloria Madrid on 09-28-2024 Respiratory Panel (PCR) [facility] Respiratory pathogens detect ion panel by molecular detection methodOrdered By: Gloria Madrid on 09-28-2024 Respiratory pathogens DNA and RNA panel KAYDEN+probe (Resp) [facility] Troponin IOrdered By: ED PRO VIDER on 09-28-2024 Troponin I 13 pg/mL 3.0-54.0 [facility] Troponin I High Sensitivity 13 pg/mL 3.0-54.0 [facility] Comment on above: Please Note: New Amanda t Units and Gender Specific Reference Ranges. For more information see Policy Stat Procedure [place] High Sensitivity Troponin (TNIH) and attachments. Terri 09-27-2024 CNPN Telephone (INTMWS) MARCIA MASCORRO ([id number]) 1955 F T Date Time Provider Department 09/27/24 GABRIEL GALVAN [...] states that letter can be faxed to [facility]. Patient also states that she continues to have issues with cough. Patient asking if provider can send in prescription for Z-arabella? Patient's pharmacy is [facility]. Please review and advise, WENDY Horowitz Krystle, RN 09/28/2024 12:30 PM Signed Patient calls to check on status of message below. Notified patient that provider is out today. Patient wanting APRON MAN to send in order for antibiotic for cough. Patient reports she wants something done before she ends up in the hospital. Asked patient if she had tried anything OTC and patient reports she has tried everything. Patient didn't give any specific medications tried. Patient supposed to be following up with pulmonology for COPD and pulmonary emphysema. Patient has not scheduled yet. Rula Hernandez, Gabriel Doherty MD 09/28/2024 6:07 PM Signed 1) Need more information than patient has a cough to determine whether needs an antibiotic if she is not able to come in for an appointment. What signs of infection? Or is COPD just not adequately controlled? Help with appointment with Dr. Torres/pulmonology 2) May print my electronically signed order to fax to [facility] about giving her morning meds the night [...] pt can get an appt with Dr. Torres soon. Gabriel Galvan MD 09/29/2024 10:49 PM Signed Patient admitted to [facility] yesterday 09/28 with COPD exacerbation I accidentally deleted the pended letter. Drafted another one to print to sign. Melissa Leon LPN 09/30/2024 12:01 PM Signed Letter printed for PCP to sign. MARGO Turcios Julia, LPN 10/11/2024 8:59 AM Signed Order/Letter faxed to [facility] Allergies As of Date: 09/27/2024 Noted Allergy Reaction CONTRAST DYE (IODINE) 12/20/2023 10 - Anaphylaxis Date Reviewed: 09/14/2024 Reviewed by: Melissa Leon LPN - Fully Assessed Reason for Visit: Patient Question [2147] Prescriptions as of 10/11/2024 - albuterol-budesonide HFA [...] for constipation. (more content not included)... [facility] 25(OH)D3 Joey 2024 25-hydroxyvitamin D3 [Mass/Vol] 33.1 ng/mL Normal 31.0-80.0 [facility] Comment on above: Order Comment: Speci men Type: BLOOD SPECIMENOrdering Facility: [facility] Address: [address] [place] [address] Performed By: #### 1 989-3 ####[facility] LABCLIA [id number] [place] [address] [place] CBC panel Auto (Bld)on 09-14 Erythrocyte distribution width (RBC) [Ratio] 13.2 % Normal 11.5-15.0 [facility] Comment on above: Order Comment: Speci men Type: BLOOD SPECIMENOrdering Facility: [facility] Address: [address] [place] [address] Performed By: #### 5 8410-2 ####[facility] LABCLIA [id number] [place] [address] [place] Hematocrit (Bld) [Volume fraction] 42.6 % Normal 36.0-46.0 [facility] Comment on above: Order Comment: Speci men Type: BLOOD SPECIMENOrdering Facility: [facility] Address: [address] [place] [address] Performed By: #### 5 8410-2 ####[facility] LABIA [id number] [place] [address] [place] Hemoglobin (Bld) [Mass/Vol] 13.7 g/dL Normal 11.5-15. 5 [facility] Comment on above: Order Comment: Speci men Type: BLOOD SPECIMENOrdering Facility: [facility] Address: [address] [place] [address] Performed By: #### 5 8410-2 ####[facility] LABCLIA [id number] [place] [id number] [place] MCH (RBC) [Entitic mass] 31.8 pg Normal 26.0-34.0 [facility] Comment on above: Order Comment: Speci men Type: BLOOD SPECIMENOrdering Facility: [facility] Address: [address] [place] [address] Performed By: #### 5 8410-2 ####[facility] LABCLIA [id number] [place] [address] [place] MCHC (RBC) [Mass/Vol] 32.2 g/dL Normal 30.5-36.0 [facility] Comment on above: Order Comment: Speci men Type: BLOOD SPECIMENOrdering Facility: [facility] Address: [address] [place] [address] Performed By: #### 5 8410-2 ####[facility] LABIA [id number] [place] [address] [place] MCV (RBC) [Entitic vol] 98.8 fL Normal 80.0-100.0 [facility] Comment on above: Order Comment: Speci men Type: BLOOD SPECIMENOrdering Facility: [facility] Address: [address] [place] [address] Performed By: #### 5 8410-2 ####[facility] [id number] [place] [address] [place] Nucleated RBC (Bld) [#/Vol] 10*3/uL Normal <0.01 [facility] Comment on above: Order Comment: Speci men Type: BLOOD SPECIMENOrdering Facility: [facility] Address: [address] [place] [address] Performed By: #### 5 8410-2 ####[facility] [id number] [place] [address] [place] Platelet mean volume (Bld) [Entitic vol] 10.2 fL Normal 9.0-12.7 [facility] Comment on above: Order Comment: Speci men Type: BLOOD SPECIMENOrdering Facility: [facility] Address: [address] [place] [address] Performed By: #### 5 8410-2 ####[facility] LABIA [id number] [place] [address] [place] Platelets (Bld) [#/Vol] 223 10*3/uL Normal 150-400 [facility] Comment on above: Order Comment: Speci men Type: BLOOD SPECIMENOrdering Facility: [facility] Address: [address] [place] [address] Performed By: #### 5 8410-2 ####[facility] LABCLIA [id number] [place] [address] [place] RBC (Bld) [#/Vol] 4.31 10*6/uL Normal 3.90-5.20 [facility] Comment on above: Order Comment: Speci men Type: BLOOD SPECIMENOrdering Facility: [facility] Address: [address] [place] [address] Performed By: #### 5 8410-2 ####[facility] LABCLIA [id number] [place] [address] [place] WBC (Bld) [#/Vol] 8.30 10*3/uL Normal 3.70-11.00 [facility] Comment on above: Order Comment: Speci men Type: BLOOD SPECIMENOrdering Facility: [facility] Address: [address] [place] [address] Performed By: #### 5 8410-2 ####[facility] LABIA [id number] [place] [address] [place] CNOVon 09-14-2024 CNOV Office Visit (INTMWS ) MARCIA MASCORRO ([id number]) 1955 F T Date Time Provider Department 09/14/24 2:40 PM GABRIEL GALVAN INTMWS During your visit today, we recorded the following information about you: Temperature Pulse Respiration Blood pressure 97.6 degrees 82/minute 16/minute 124/72 Weight 85.1 kg Gabriel Galvan MD 09/14/2024 4:40 PM Signed This note was created using Truliriter. Subjective Marcia Mascorro is a 68 year [...] is currently under the care of a structural steel painter, Dr. Forrest, and requests a referral to a manager planning for further evaluation. Additionally, Marcia has a [...] scheduled for a surgical evaluation at the [facility] and requests a referral to a manager plan for a pre-operative evaluation. 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 PAST MEDICAL HISTORY Diagnosis Date Abdominal aortic [...] as of 01/2020 per ER report from [facility]. Palpitation Primary cardiomyopathy (HCC) Pulmonary emphysema [...] 1 capsule (more content not included)... Normal [facility] metabolic 2000 panelon 09-14-2024 Albumin [Mass/Vol] 4.2 g/dL Normal 3.9-4.9 [facility] Comment on above: Order Comment: Speci men Type: BLOOD SPECIMENOrdering Facility: [facility] Address: [address] [place] [address] Performed By: #### 2 4323-8, LIPNF, 83892-1 ####[facility] LABCLIA [id number] [place] [address] [place] ALP [Catalytic activity/Vol] 128 U/L High 34-123 [facility] Comment on above: Order Comment: Speci men Type: BLOOD SPECIMENOrdering Facility: [facility] Address: [address] [place] [address] Performed By: #### 2 4323-8, LIPNF, 22880-6 ####[facility] LABCLIA [id number] [place] [address] [place] ALT [Catalytic activity/Vol] 10 U/L Normal 7-38 [facility] Comment on above: Order Comment: Speci men Type: BLOOD SPECIMENOrdering Facility: [facility] Address: [address] [place] [address] Performed By: #### 2 4323-8, LIPNF, 44259-8 ####[facility] LABCLIA [id number] [place] [address] [place] Anion gap [Moles/Vol] 9 mmol/L Normal 8-15 [facility] Comment on above: Order Comment: Speci men Type: BLOOD SPECIMENOrdering Facility: [facility] Address: [address] [place] [address] Performed By: #### 2 4323-8, LIPNF, 77314-4 ####[facility] LABCLIA [id number] [place] [id number] [place] AST [Catalytic activity/Vol] 15 U/L Normal 13-35 [facility] Comment on above: Order Comment: Speci men Type: BLOOD SPECIMENOrdering Facility: [facility] Address: [address] [place] [id number] Performed By: #### 2 4323-8, LIPNF, ####[facility] LABCLIA [id number] [address] [address] [place] Bilirubin [Mass/Vol] 0.4 mg/dL Normal 0.2-1.3 [facility] Comment on above: Order Comment: Speci men Type: BLOOD SPECIMENOrdering Facility: [facility] Address: [address] [place], [place] [address] Performed By: #### 2 4323-8, LIPNF, ####[facility] LABCLIA [id number] [place] [address] [place] Calcium [Mass/Vol] 9.8 mg/dL Normal 8.5-10.2 [facility] Comment on above: Order Comment: Speci men Type: BLOOD SPECIMENOrdering Facility: [facility] Address: [address] [place], [place] [address] Performed By: #### 2 4323-8, LIPNF, ####[facility] LABCLIA [id number] [place] [address] [place] Chloride [Moles/Vol] 104 mmol/L Normal 98-107 [facility] Comment on above: Order Comment: Speci men Type: BLOOD SPECIMENOrdering Facility: [facility] Address: [address] [place] [id number] Performed By: #### 2 4323-8, LIPNF, ####[facility] LABCLIA [id number] [place] [id number] [place] CO2 [Moles/Vol] 27 mmol/L Normal 22-30 [facility] Comment on above: Order Comment: Speci men Type: BLOOD SPECIMENOrdering Facility: [facility] Address: [address] [place] [address] Performed By: #### 2 4323-8, LIPNF, 10855-2 ####[facility] LABCLIA [id number] [place] [address] [place] Creatinine [Mass/Vol] 0.91 mg/dL Normal 0.58-0.96 [facility] Comment on above: Order Comment: Speci men Type: BLOOD SPECIMENOrdering Facility: [facility] Address: [address] [place] [address] Performed By: #### 2 4323-8, LIPNF, ####[facility] LABIA [id number] [place] [address] [place] Creatinine and Glomerular filtration rate.predicted panel (S/P/Bld) 69 mL/min/1.73m??? Normal >=60 [facility] Comment on above: Order Comment: Speci men Type: BLOOD SPECIMENOrdering Facility: [facility] Address: [address] [place] [address] Result Comment: Sweta mated Glomerular Filtration Rate [...] actual GFR. Performed By: #### 2 4323-8, LIPNF, ####[facility] LABIA [id number] [place] [id number] [place] Glucose [Mass/Vol] 94 mg/dL Normal 74-99 [facility] Comment on above: Order Comment: Speci men Type: BLOOD SPECIMENOrdering Facility: [facility] Address: [address] [place] [address] Result Comment: The [place] Diabetes Association (ADA) provides guidance for cutoff [...] Standards of Medical Care in Diabetes 2016, [place] Diabetes Association. Diabetes Care. 2016.39(Suppl 1). Performed By: #### 2 4323-8, LIPNF, ####[facility] LABIA [id number] [place] [address] [place] Potassium [Moles/Vol] 4.1 mmol/L Normal 3.7-5.1 [facility] Comment on above: Order Comment: Speci men Type: BLOOD SPECIMENOrdering Facility: [facility] Address: [address] [place] [address] Performed By: #### 2 432-8, LIPNF, ####[facility] LABIA [id number] [place] [address] [place] Protein [Mass/Vol] 7.3 g/dL Normal 6.3-8.0 [facility] Comment on above: Order Comment: Speci men Type: BLOOD SPECIMENOrdering Facility: [facility] Address: [address] [place] [address] Performed By: #### 2 432-8, LIPNF, ####[facility] LABIA [id number] [place] [address] [place] Sodium [Moles/Vol] 140 mmol/L Normal 136-144 [facility] Comment on above: Order Comment: Speci men Type: BLOOD SPECIMENOrdering Facility: [facility] Address: [address] [place] [address] Performed By: #### 2 4323-8, LIPNF, ####[facility] LABCLIA [id number] [place] [address] [place] Urea nitrogen [Mass/Vol] 13 mg/dL Normal 7-21 [facility] Comment on above: Order Comment: Cesar piper Type: BLOOD SPECIMENOrdering Facility: [facility] Address: [address] [place] [address] Performed By: #### 2 4323-8, LIPNF, ####[facility] LABCLIA [id number] [place] [address] [place] HbA1c (Bld)on 09-14-2024 Average glucose Estimated from glycated hemoglobin (Bld) [Mass/Vol] 108 mg/dL Normal [facility] Comment on above: Order Comment: Cesar piper Type: BLOOD SPECIMENOrdering Facility: [facility] Address: [address] [place] [address] Result Comment: eAG: (Estimated average glucose) is a calculated value from HgbA1c and is b2b outside sales representative of the average blood glucose level in the last 2-3 month period. Performed By: #### 5 5454-3 ####[facility] LABIA [id number] [place] [address] [place] HbA1c (Bld) [Mass fraction] 5.4 % Normal 4.3-5.6 [facility] Comment on above: Order Comment: Cesar piper Type: BLOOD SPECIMENOrdering Facility: [facility] Address: [address] [place] [address] Result Comment: Amer [place] Diabetes Association guidelines indicate that patients with HgbA1c in the range 5.7-6.4% are at increased risk for development of diabetes, and intervention by lifestyle modification may be beneficial. HgbA1c greater or equal to 6.5% is considered diagnostic of diabetes. Performed By: #### 5 5454-3 ####[facility] LABCLIA [id number] [place] [address] [place] LIPID PANEL, NONFASTINGon Cholesterol [Mass/Vol] 219 mg/dL High <200 [facility] Comment on above: Order Comment: Speci men Type: BLOOD SPECIMENOrdering Facility: [facility] Address: [address] [place] [address] Result Comment: <200 mg/dL, Desirable 200-239 mg/dL, Borderline high >239 mg/dL, High Performed By: #### 2 4323-8, LIPNF, 35316-4 ####[facility] LABCLIA [id number] [place] [address] [place] HDL CHOLESTEROL, NF 45 mg/dL Normal >39 [facility] Comment on above: Order Comment: Speci men Type: BLOOD SPECIMENOrdering Facility: [facility] Address: [address] [place] [address] Result Comment: 40-5 9 mg/dL, Acceptable >59 mg/dL, High: Negative risk factor for coronary heart disease <40 mg/dL, Low: Positive risk factor for coronary heart disease Performed By: #### 2 4323-8, LIPNF, 70522-5 ####[facility] LABCLIA [id number] [place] [address] [place] LDL CHOLESTEROL, NF 141 mg/dL High <100 [facility] Comment on above: Order Comment: Speci men Type: BLOOD SPECIMENOrdering Facility: [facility] Address: [address] [place] [address] Result Comment: <100 mg/dL, Optimal 100-129 mg/dL, Near optimal/above optimal 130-159 mg/dL, Borderline high 160-189 mg/dL, High >189 mg/dL, Very high Secondary prevention optimal LDL Cholesterol levels are recommended to be < 70 mg/dL Performed By: #### 2 4323-8, LIPNF, 21541-1 ####[facility] LABCLIA [id number] [place] [address] [place] LDL/HDL RATIO, NF 3.13 mg/dL High <2.54 [facility] Comment on above: Order Comment: Speci men Type: BLOOD SPECIMENOrdering Facility: [facility] Address: [address] [place] [address] Result Comment: Kimberly chang: 1. National Cholesterol Education Program ATP III Guideline At-A-Glance Quick Desk Reference: National Heart, Lung, and Blood Flippin. National Institutes of Health. 2001: NIH Publication No. 01-3305. 2. An International Atherosclerosis Society position paper: global recommendations for the management of dyslipidemia: executive summary, Atherosclerosis. 2014: 232(2):410-413. Performed By: #### 2 4323-8, LIPNF, ####[facility] LABCLIA [id number] [place] [address] [place] NON HDL CHOL, NF 174 mg/dL High <130 [facility] Comment on above: Order Comment: Speci men Type: BLOOD SPECIMENOrdering Facility: [facility] Address: [address] [place] [address] Result Comment: <130 mg/dL, Optimal 130-159 mg/dL, Near optimal/above optimal 160-189 mg/dL, Borderline high 190-219 mg/dL, High >219 mg/dL, Very high Secondary prevention optimal non HDL Cholesterol levels are recommended to be <100 mg/dL Performed By: #### 2 4323-8, LIPNF, ####[facility] LABCLIA [id number] [place] [address] [place] T CHOL/HDL RATIO NF 4.87 mg/dL Normal <5.10 [facility] Comment on above: Order Comment: Speci men Type: BLOOD SPECIMENOrdering Facility: [facility] Address: [address] [place] [address] Performed By: #### 2 4323-8, LIPNF, 25160-3 ####[facility] LABCLIA [id number] [place] [address] [place] TRIGLYCERIDES, [place] 165 mg/dL High <150 [facility] Comment on above: Order Comment: Speci men Type: BLOOD SPECIMENOrdering Facility: [facility] Address: [address] [place] [address] Result Comment: <150 mg/dL, Normal 150-199 mg/dL, Borderline high 200-499 mg/dL, High >499 mg/dL, Very high Performed By: #### 2 4323-8, LIPNF, 11962-7 ####[facility] LABCLIA [id number] [place] [address] [place] VLDL CHOLESTEROL, NF 33 mg/dL High <30 [facility] Comment on above: Order Comment: Speci men Type: BLOOD SPECIMENOrdering Facility: [facility] Address: [address] [place] [address] Performed By: #### 2 4323-8, LIPNF, ####[facility] LABCLIA [id number] [place] [address] [place] Magnesium SerPl-mCncon 09-14 Magnesium [Mass/Vol] 2.0 mg/dL Normal 1.7-2.3 [facility] Comment on above: Order Comment: Speci men Type: BLOOD SPECIMENOrdering Facility: [facility] Address: [address] [place] [address] Performed By: #### 2 4323-8, LIPNF, 11429-5 ####[facility] LABCLIA [id number] [place] [address] [place] CNOVon 08-26-2024 CNOV Office Visit ([facility] ) MARCIA MASCORRO ([id number]) 1955 F T Date Time Provider Department 08/26/24 5:15 PM RYANNE NEGRO [facility] During your visit today, we recorded the following information about you: Temperature Pulse Respiration Blood pressure 99.6 degrees 87/minute 24/minute 136/85 Weight 87.5 kg Ryanne Negro APRN.CNP 08/26/2024 5:56 PM Signed CC: Patient presents [...] as of 01/2020 per ER report from [facility]. Palpitation Primary cardiomyopathy (HCC) Pulmonary emphysema (HCC) SVT (supraventricular tachycardia) (HCC) Tremor PAST SURGICAL HISTORY Procedure Laterality Date 2D ECHO (EXEP) 01/19/2017 EF=55%, mild LVH, LA enlargement, UT and TI, Diastolic dysfunction. 2D ECHO (EXEP) 12/18/2017 EF=55%, mild LVH, mild diastolic dysfunct, COLONOSCOPY FLX DX W/COLLJ SPEC WHEN PFRMD 04/16/2016 Colonoscopy mac. repeat 10 yrs ESOPHAGOGASTRODUODENOS COPY TRANSORAL DIAGNOSTIC 04/16/2016 EGD mac LAPAROSCOPIC CHOLECYSTECTOMY [...] mg tab (more content not included)... Normal [facility] STREP A MOLECULAR (POC)on Procedural Control Valid [facility] Strep A (POCT) Negative Negative [facility] 12 Lead EKGon 08-21-2024 12 Lead EKG Normal [facility] CBC W/Diff, Automatedon 08-07 Absolute Lymph 1.66 X10 3/uL Normal 0.83-4.51 [facility] Comment on above: Performed By: #### L 501.4020, L500.4050, L100.0100 ####[facility] [address] [place], [address] Absolute Neut 4.0 X10 3/uL Normal 2.0-7.7 [facility] Comment on above: Performed By: #### L 501.4020, L500.4050, L100.0100 ####[facility] [address] [place], [address] Basophils/100 WBC (Bld) 0.6 % Normal 0-1 [facility] Comment on above: Performed By: #### L 501.4020, L500.4050, L100.0100 ####[facility] [address] [place], [address] Eosinophils/100 WBC (Bld) 3.3 % Normal 0-5 [facility] Comment on above: Performed By: #### L 501.4020, L500.4050, L100.0100 ####[facility] [address] [place], [address] Erythrocyte distribution width (RBC) [Ratio] 13.2 % Normal 11.6-14.6 [facility] Comment on above: Performed By: #### L 501.4020, L500.4050, L100.0100 ####[facility] [address] [place], [address] Hematocrit (Bld) [Volume fraction] 40.4 % Normal 37-47 [facility] Comment on above: Performed By: #### L 501.4020, L500.4050, L100.0100 ####[facility] [address] [place], [address] Hemoglobin (Bld) [Mass/Vol] 12.8 g/dL Normal 12.0-15. 0 [facility] Comment on above: Performed By: #### L 501.4020, L500.4050, L100.0100 ####[facility] [address] [place], [address] IG% 0.300 Normal 0.0-0.9 [facility] Comment on above: Result Comment: IG% - Immature Granulocytes (promyelocytes, myelocytes andmetamyelocytes) > 1% indicates that a LEFT SHIFT is Present. Performed By: #### L 501.4020, L500.4050, L100.0100 ####[facility] [address] [place], [address] Lymphocytes/100 WBC (Bld) 26.1 % Normal 19-41 [facility] Comment on above: Performed By: #### L 501.4020, L500.4050, L100.0100 ####[facility] [address] [place], [address] MCH (RBC) [Entitic mass] 30.5 pg Normal 27.0-32.0 [facility] Comment on above: Performed By: #### L 501.4020, L500.4050, L100.0100 ####[facility] [address] [place], [address] MCHC (RBC) [Mass/Vol] 31.7 g/dL Low 32-36 [facility] Comment on above: Performed By: #### L 501.4020, L500.4050, L100.0100 ####[facility] [address] [place], [address] MCV (RBC) [Entitic vol] 96.2 fL Normal 81-99 [facility] Comment on above: Performed By: #### L 501.4020, L500.4050, L100.0100 ####[facility] [address] [place], [address] Monocytes/100 WBC (Bld) 6.3 % Normal 0-10 [facility] Comment on above: Performed By: #### L 501.4020, L500.4050, L100.0100 ####[facility] [address] [place], [address] Neutrophils/100 WBC (Bld) 63.4 % Normal 47-70 [facility] Comment on above: Performed By: #### L 501.4020, L500.4050, L100.0100 ####[facility] [address] [place], [address] Nucleated RBC (Bld) [#/Vol] 0 10*3/uL Normal 0-5 [facility] Comment on above: Performed By: #### L 501.4020, L500.4050, L100.0100 ####[facility] [address] [place], [address] Platelet mean volume (Bld) [Entitic vol] 9.1 fL Normal 6.2-12.0 [facility] Comment on above: Performed By: #### L 501.4020, L500.4050, L100.0100 ####[facility] [address] [place], [address] Platelets (Bld) [#/Vol] 191 10*3/uL Normal 150-450 [facility] Comment on above: Performed By: #### L 501.4020, L500.4050, L100.0100 ####[facility] [address] [place], [address] RBC (Bld) [#/Vol] 4.20 10*6/uL Normal 4.2-5.4 [facility] Comment on above: Performed By: #### L 501.4020, L500.4050, L100.0100 ####[facility] [address] [place], [address] RDW SD 46.5 fl High 35.1-43.9 [facility] Comment on above: Performed By: #### L 501.4020, L500.4050, L100.0100 ####[facility] [address] [place], [address] WBC (Bld) [#/Vol] 6.4 10*3/uL Normal 4.4-11.0 [facility] Comment on above: Performed By: #### L 501.4020, L500.4050, L100.0100 ####[facility] [address] [place], [address] Chest PA and Lateralon 08-21 Chest PA and Lateral Normal [facility] Comprehensive Metabolic Prof ilon 08-21-2024 Albumin [Mass/Vol] 3.1 g/dL Low 3.2-5.0 [facility] Comment on above: Order Comment: 'TROP ' Serial specimen #1, #2 or #3: 1 Performed By: #### L 501.4020, L500.4050, L100.0100 ####[facility] [address] [place], [address] Albumin/Globulin [Mass ratio] 0.9 {ratio} Normal 0.9-2.4 [facility] Comment on above: Order Comment: 'TROP ' Serial specimen #1, #2 or #3: 1 Performed By: #### L 501.4020, L500.4050, L100.0100 ####[facility] [address] [place], [address] ALK P 128 U/L High 45-117 [facility] Comment on above: Order Comment: 'TROP ' Serial specimen #1, #2 or #3: 1 Performed By: #### L 501.4020, L500.4050, L100.0100 ####[facility] [address] [place], [address] ALT [Catalytic activity/Vol] 11 U/L Low 13-56 [facility] Comment on above: Order Comment: 'TROP ' Serial specimen #1, #2 or #3: 1 Performed By: #### L 501.4020, L500.4050, L100.0100 ####[facility] [address] [place], [address] AST [Catalytic activity/Vol] 14 U/L Low 15-37 [facility] Comment on above: Order Comment: 'TROP ' Serial specimen #1, #2 or #3: 1 Performed By: #### L 501.4020, L500.4050, L100.0100 ####[facility] [address] [place], [address] Bilirubin [Mass/Vol] 0.50 mg/dL Normal 0.20-1.00 [facility] Comment on above: Order Comment: 'TROP ' Serial specimen #1, #2 or #3: 1 Result Comment: For patients on eltrombopag therapy, use of Dimension [place] TBIL is not recommended. Performed By: #### L 501.4020, L500.4050, L100.0100 ####[facility] [address] [place], [address] BUN/CRE 20.5 RATIO High 10-20 [facility] Comment on above: Order Comment: 'TROP ' Serial specimen #1, #2 or #3: 1 Performed By: #### L 501.4020, L500.4050, L100.0100 ####[facility] [address] [place], [address] CA,Total 8.6 mg/dL Normal 8.5-10.1 [facility] Comment on above: Order Comment: 'TROP ' Serial specimen #1, #2 or #3: 1 Performed By: #### L 501.4020, L500.4050, L100.0100 ####[facility] [address] [place], [address] Chloride [Moles/Vol] 108 mmol/L High 98-107 [facility] Comment on above: Order Comment: 'TROP ' Serial specimen #1, #2 or #3: 1 Performed By: #### L 501.4020, L500.4050, L100.0100 ####[facility] [address] [place], [address] CO2 [Moles/Vol] 29.0 mmol/L Normal 21.0-32.0 [facility] Comment on above: Order Comment: 'TROP ' Serial specimen #1, #2 or #3: 1 Performed By: #### L 501.4020, L500.4050, L100.0100 ####[facility] [address] [place], [address] Creatinine [Mass/Vol] 0.83 mg/dL Normal 0.55-1.02 [facility] Comment on above: Order Comment: 'TROP ' Serial specimen #1, #2 or #3: 1 Result Comment: The validity of the calculated GFR GFRAA in patients over70 years has not been determined. Clinical correlation isessential. Performed By: #### L 501.4020, L500.4050, L100.0100 ####[facility] [address] [place], [address] ECRCL 71.52 ml/min Normal [facility] Comment on above: Order Comment: 'TROP ' Serial specimen #1, #2 or #3: 1 Performed By: #### L 501.4020, L500.4050, L100.0100 ####[facility] [address] [place], [address] EST GFR - AA 88 mL/min Normal >60 [facility] Comment on above: Order Comment: 'TROP ' Serial specimen #1, #2 or #3: 1 Result Comment: Afri can [place] GFR Calc Performed By: #### L 501.4020, L500.4050, L100.0100 ####[facility] [address] [place], [address] GAP 5 Normal 5-15 [facility] Comment on above: Order Comment: 'TROP ' Serial specimen #1, #2 or #3: 1 Performed By: #### L 501.4020, L500.4050, L100.0100 ####[facility] [address] [place], [address] GFR/1.73 sq M.predicted among non-blacks MDRD (S/P/Bld) [Vol rate/Area] 73 mL/min/{1.73_m2} Normal >60 [facility] Comment on above: Order Comment: 'TROP ' Serial specimen #1, #2 or #3: 1 Result Comment: Non- GFR Calc Performed By: #### L 501.4020, L500.4050, L100.0100 ####[facility] [address] [place], [address] Globulin (S) [Mass/Vol] 3.5 g/dL Normal 2.2-4.2 [facility] Comment on above: Order Comment: 'TROP ' Serial specimen #1, #2 or #3: 1 Performed By: #### L 501.4020, L500.4050, L100.0100 ####[facility] [address] [place], [address] Glucose [Mass/Vol] 139 mg/dL High 74-106 [facility] Comment on above: Order Comment: 'TROP ' Serial specimen #1, #2 or #3: 1 Result Comment: Fast ing Glucose result greater than or equal to 126 mg/dLsuggests DIABETES MELLITUS per A.D.A. criteria. Performed By: #### L 501.4020, L500.4050, L100.0100 ####[facility] [address] [place], [address] Potassium [Moles/Vol] 3.6 mmol/L Normal 3.5-5.1 [facility] Comment on above: Order Comment: 'TROP ' Serial specimen #1, #2 or #3: 1 Performed By: #### L 501.4020, L500.4050, L100.0100 ####[facility] [address] [place], [address] Sodium [Moles/Vol] 142 mmol/L Normal 136-145 [facility] Comment on above: Order Comment: 'TROP ' Serial specimen #1, #2 or #3: 1 Performed By: #### L 501.4020, L500.4050, L100.0100 ####[facility] [address] [place], [address] T PROT 6.6 g/dL Normal 6.4-8.2 [facility] Comment on above: Order Comment: 'TROP ' Serial specimen #1, #2 or #3: 1 Performed By: #### L 501.4020, L500.4050, L100.0100 ####[facility] [address] [place], [address] Urea nitrogen [Mass/Vol] 17 mg/dL Normal 7-18 [facility] Comment on above: Order Comment: 'TROP ' Serial specimen #1, #2 or #3: 1 Performed By: #### L 501.4020, L500.4050, L100.0100 ####[facility] [address] [place], [address] Emergency Department Summary on 08-21-2024 Emergency Department Summary Normal [facility] L501.4020on 08-21-2024 TROPONIN-I HS 20 pg/mL Normal 3.0-54.0 [facility] Comment on above: Order Comment: 'TROP ' Serial specimen #1, #2 or #3: 1 Result Comment: Plea se Note: New Test Units and Gender Specific Reference Ranges. For more information see Policy Stat Procedure [place] High Sensitivity Troponin (TNIH) and attachments. Performed By: #### L 501.4020, L500.4050, L100.0100 ####[facility] [address] [place], [address] Shoulder min 2 Viewson 08-21 Shoulder min 2 Views Normal [facility] 12 Lead EKGon 07-07-2024 12 Lead EKG Normal [facility] 12 Lead EKG Normal [facility] Basic Metabolic Profile (BMP )on 07-07-2024 BUN/CRE 14.5 RATIO Normal - [facility] Comment on above: Order Comment: 1Y Performed By: #### L 500.2500, L501.5425, L100.0100 ####[facility] [address] [place], [address] CA,Total 9.7 mg/dL Normal 8.5-10.1 [facility] Comment on above: Order Comment: 1Y Performed By: #### L 500.2500, L501.5425, L100.0100 ####[facility] [address] [place], [address] Chloride [Moles/Vol] 106 mmol/L Normal 98-107 [facility] Comment on above: Order Comment: 1Y Performed By: #### L 500.2500, L501.5425, L100.0100 ####[facility] [address] [place], [address] CO2 [Moles/Vol] 32.0 mmol/L Normal 21.0-32.0 [facility] Comment on above: Order Comment: 1Y Performed By: #### L 500.2500, L501.5425, L100.0100 ####[facility] [address] [place], [address] Creatinine [Mass/Vol] 0.90 mg/dL Normal 0.55-1.02 [facility] Comment on above: Order Comment: 1Y Result Comment: The validity of the calculated GFR GFRAA in patients over70 years has not been determined. Clinical correlation isessential. Performed By: #### L 500.2500, L501.5425, L100.0100 ####[facility] [address] [place], [address] ECRCL 67.20 ml/min Normal [facility] Comment on above: Order Comment: 1Y Performed By: #### L 500.2500, L501.5425, L100.0100 ####[facility] [address] [place], [address] EST GFR - AA 81 mL/min Normal >60 [facility] Comment on above: Order Comment: 1Y Result Comment: Afri can [place] GFR Calc Performed By: #### L 500.2500, L501.5425, L100.0100 ####[facility] [address] [place], [address] GAP 4 Low 5-15 [facility] Comment on above: Order Comment: 1Y Performed By: #### L 500.2500, L501.5425, L100.0100 ####[facility] [address] [place], [address] GFR/1.73 sq M.predicted among non-blacks MDRD (S/P/Bld) [Vol rate/Area] 67 mL/min/{1.73_m2} Normal >60 [facility] Comment on above: Order Comment: 1Y Result Comment: Non- GFR Calc Performed By: #### L 500.2500, L501.5425, L100.0100 ####[facility] [address] [place], [address] Glucose [Mass/Vol] 102 mg/dL Normal 74-106 [facility] Comment on above: Order Comment: 1Y Result Comment: Fast ing Glucose result from 100 to 125 mg/dLsuggests IMPAIRED HOMEOSTASIS per A.D.A. criteria. Performed By: #### L 500.2500, L501.5425, L100.0100 ####[facility] [address] [place], [address] Potassium [Moles/Vol] 3.6 mmol/L Normal 3.5-5.1 [facility] Comment on above: Order Comment: 1Y Performed By: #### L 500.2500, L501.5425, L100.0100 ####[facility] [address] [place], [address] Sodium [Moles/Vol] 141 mmol/L Normal 136-145 [facility] Comment on above: Order Comment: 1Y Performed By: #### L 500.2500, L501.5425, L100.0100 ####[facility] [address] [place], [address] Urea nitrogen [Mass/Vol] 13 mg/dL Normal 7-18 [facility] Comment on above: Order Comment: 1Y Performed By: #### L 500.2500, L501.5425, L100.0100 ####[facility] [address] [place], [address] CBC W/Diff, Automatedon 10-3 Absolute Lymph 2.39 X10 3/uL Normal 0.83-4.51 [facility] Comment on above: Performed By: #### L 500.2500, L501.5425, L100.0100 ####[facility] [address] [place], [address] Absolute Neut 3.4 X10 3/uL Normal 2.0-7.7 [facility] Comment on above: Performed By: #### L 500.2500, L501.5425, L100.0100 ####[facility] [address] [place], [address] Basophils/100 WBC (Bld) 0.8 % Normal 0-1 [facility] Comment on above: Performed By: #### L 500.2500, L501.5425, L100.0100 ####[facility] [address] [place], [address] Eosinophils/100 WBC (Bld) 3.7 % Normal 0-5 [facility] Comment on above: Performed By: #### L 500.2500, L501.5425, L100.0100 ####[facility] [address] [place], [address] Erythrocyte distribution width (RBC) [Ratio] 14.0 % Normal 11.6-14.6 [facility] Comment on above: Performed By: #### L 500.2500, L501.5425, L100.0100 ####[facility] [address] [place], [address] Hematocrit (Bld) [Volume fraction] 42.3 % Normal 37-47 [facility] Comment on above: Performed By: #### L 500.2500, L501.5425, L100.0100 ####[facility] [address] [place], [address] Hemoglobin (Bld) [Mass/Vol] 13.4 g/dL Normal 12.0-15. 0 [facility] Comment on above: Performed By: #### L 500.2500, L501.5425, L100.0100 ####[facility] [address] [place], [address] IG% 0.300 Normal 0.0-0.9 [facility] Comment on above: Result Comment: IG% - Immature Granulocytes (promyelocytes, myelocytes andmetamyelocytes) > 1% indicates that a LEFT SHIFT is Present. Performed By: #### L 500.2500, L501.5425, L100.0100 ####[facility] [address] [place], [address] Lymphocytes/100 WBC (Bld) 36.8 % Normal 19-41 [facility] Comment on above: Performed By: #### L 500.2500, L501.5425, L100.0100 ####[facility] [address] [place], [address] MCH (RBC) [Entitic mass] 30.3 pg Normal 27.0-32.0 [facility] Comment on above: Performed By: #### L 500.2500, L501.5425, L100.0100 ####[facility] [address] [place], [address] MCHC (RBC) [Mass/Vol] 31.7 g/dL Low 32-36 [facility] Comment on above: Performed By: #### L 500.2500, L501.5425, L100.0100 ####[facility] [address] [place], [address] MCV (RBC) [Entitic vol] 95.7 fL Normal 81-99 [facility] Comment on above: Performed By: #### L 500.2500, L501.5425, L100.0100 ####[facility] [address] [place], [address] Monocytes/100 WBC (Bld) 6.9 % Normal 0-10 [facility] Comment on above: Performed By: #### L 500.2500, L501.5425, L100.0100 ####[facility] [address] [place], [address] Neutrophils/100 WBC (Bld) 51.5 % Normal 47-70 [facility] Comment on above: Performed By: #### L 500.2500, L501.5425, L100.0100 ####[facility] [address] [place], [address] Nucleated RBC (Bld) [#/Vol] 0 10*3/uL Normal 0-5 [facility] Comment on above: Performed By: #### L 500.2500, L501.5425, L100.0100 ####[facility] [address] [place], [address] Platelet mean volume (Bld) [Entitic vol] 10.0 fL Normal 6.2-12.0 [facility] Comment on above: Performed By: #### L 500.2500, L501.5425, L100.0100 ####[facility] [address] [place], [address] Platelets (Bld) [#/Vol] 254 10*3/uL Normal 150-450 [facility] Comment on above: Performed By: #### L 500.2500, L501.5425, L100.0100 ####[facility] [address] [place], [address] RBC (Bld) [#/Vol] 4.42 10*6/uL Normal 4.2-5.4 [facility] Comment on above: Performed By: #### L 500.2500, L501.5425, L100.0100 ####[facility] [address] [place], [address] RDW SD 48.8 fl High 35.1-43.9 [facility] Comment on above: Performed By: #### L 500.2500, L501.5425, L100.0100 ####[facility] [address] [place], [address] WBC (Bld) [#/Vol] 6.5 10*3/uL Normal 4.4-11.0 [facility] Comment on above: Performed By: #### L 500.2500, L501.5425, L100.0100 ####[facility] [address] [place], [address] Chest PA and Lateralon 07-07 Chest PA and Lateral Normal [facility] Emergency Department Summary on 07-07-2024 Emergency Department Summary Normal [facility] L501.4020on 07-07-2024 TROPONIN-I HS 15 pg/mL Normal 3.0-54.0 [facility] Comment on above: Result Comment: Plea se Note: New Test Units and Gender Specific Reference Ranges. For more information see Policy Stat Procedure [place] High Sensitivity Troponin (TNIH) and attachments. Performed By: #### L 501.4020 ####[facility] [address] [place], [address] L501.5425on 07-07-2024 TROPONIN-I HS 18 pg/mL Normal 3.0-54.0 [facility] Comment on above: Order Comment: 1Y Result Comment: Plea se Note: New Test Units and Gender Specific Reference Ranges. For more information see Policy Stat Procedure [place] High Sensitivity Troponin (TNIH) and attachments. Performed By: #### L 500.2500, L501.5425, L100.0100 ####[facility] [address] [place], [address] XR Chest PA and Lateralon IMPRESSION: No acute radiographic abnormality. Corporate Tax Preparer: ANNE Transcribe Date/Time: Jun 17 2024 3:46P Dictated by : CARLA LANGSTON MD This examination was interpreted and the report reviewed and electronically signed by: CARLA LNAGSTON MD on Jun 17 2024 3:47PM [facility] DIVISION OF RADIOLOGY * * *Final Report* [...] Moderate hiatal hernia. DIVISION OF RADIOLOGY Provider, [facility] - 06/17/2024 * * *Final Report* * [...] hernia. IMPRESSION IMPRESSION: No acute radiographic abnormality. Corporate Tax Preparer: PSCB Transcribe Date/Time: Jun 17 2024 3:46P Dictated by : CARLA LANGSTON MD This examination was interpreted and the report reviewed and electronically signed by: CARLA LANGSTON MD on Jun 17 2024 3:47PM EST [facility] Radiology Study observation (narrative) [facility] XR Chest PA and LateralOrder ed By: [facility] Provider on 06-17-2024 [facility] CBC W Auto Differential pane l (Bld)on 05-30-2024 Basophils (Bld) [#/Vol] 0.06 10*3/uL NINF [facility] Basophils/100 WBC (Bld) 0.9 % [facility] Differential cell count method Nom (Bld) Auto [facility] Eosinophils (Bld) [#/Vol] 0.34 10*3/uL [facility] Eosinophils/100 WBC (Bld) 4.8 % [facility] Erythrocyte distribution width (RBC) [Ratio] 13.2 % 11.5 - 15.0 % [facility] Hematocrit (Bld) [Volume fraction] 42.1 % 36.0 - 46.0 % [facility] Hemoglobin (Bld) [Mass/Vol] 13.3 g/dL 11.5 - 15.5 g/dL [facility] Immature granulocytes (Bld) [#/Vol] [facility] Immature granulocytes/100 WBC (Bld) 0.1 % [facility] Lymphocytes (Bld) [#/Vol] 3.11 10*3/uL [facility] Lymphocytes/100 WBC (Bld) 44.1 % [facility] MCH (RBC) [Entitic mass] 30.2 pg 26. 0 - 34.[address] [facility] MCHC (RBC) [Mass/Vol] 31.6 g/dL 30.5 - 36.0 g/dL [facility] MCV (RBC) [Entitic vol] 95.5 fL 80.0 - 100.[address] [facility] Monocytes (Bld) [#/Vol] 0.51 10*3/uL [facility] Monocytes/100 WBC (Bld) 7.2 % [facility] Neutrophils (Bld) [#/Vol] 3.02 10*3/uL [facility] Neutrophils/100 WBC (Bld) 42.9 % [facility] Nucleated RBC (Bld) [#/Vol] [facility] Nucleated RBC/100 WBC (Bld) [Ratio] 0.0 % /[address] [facility] Platelet mean volume (Bld) [Entitic vol] 9.9 fL 9.0 - 12.[address] [facility] Platelets (Bld) [#/Vol] 199 10*3/uL [facility] RBC (Bld) [#/Vol] 4.41 10*6/uL 3.90 - 5.20 m/uL [facility] WBC (Bld) [#/Vol] 7.05 10*3/uL [facility] CT Abdomen and Pelvis WO con traston 03-18-2024 IMPRESSION: No acute finding. Small RIGHT perihepatic density consistent with minimal residual complex collection status post abscess drainage. Extrahepatic biliary dilatation is stable in comparison to prior studies. Stable bilobed abdominal aortic aneurysm. Colonic diverticulosis. Nonobstructing nephrolithiasis. Large hiatal hernia. Corporate Tax Preparer: ANNE Transcribe Date/Time: Mar 18 2024 3:26P Dictated by : ESTEFANI STARKS MD This examination was interpreted and the report reviewed and electronically signed by: ESTEFANI STARKS MD on Mar 18 2024 3:49PM [facility] DIVISION OF RADIOLOGY * * *Final Report* * * DATE OF EXAM: Mar 18 2024 2:51PM [facility] 0531 - CT ABD/PEL WO IVCON / [...] No additional findings. DIVISION OF RADIOLOGY Provider, [facility] - 03/18/2024 * * *Final Report* * * DATE OF EXAM: Mar 18 2024 2:51PM [facility] 0531 - CT ABD/PEL WO IVCON / [...] Colonic diverticulosis. Nonobstructing nephrolithiasis. Large hiatal hernia. Corporate Tax Preparer: PSCB Transcribe Date/Time: Mar 18 2024 3:26P Dictated by : ESTEFANI STARKS MD This examination was interpreted and the report reviewed and electronically signed by: ESTEFANI STARKS MD on Mar 18 2024 3:49PM EST [facility] Radiology Study observation (narrative) [facility] CT Abdomen and Pelvis WO con trastOrdered By: Ccf Provider on 03-18-2024 [facility] CBC W Auto Differential pane l (Bld)on 03-14-2024 Basophils (Bld) [#/Vol] 0.06 10*3/uL [facility] Basophils/100 WBC (Bld) 1.0 % [facility] Differential cell count method Nom (Bld) Auto [facility] Eosinophils (Bld) [#/Vol] 0.38 10*3/uL [facility] Eosinophils/100 WBC (Bld) 6.2 % [facility] Erythrocyte distribution width (RBC) [Ratio] 13.1 % 11.5 - 15.0 % [facility] Hematocrit (Bld) [Volume fraction] 39.1 % 36.0 - 46.0 % [facility] Hemoglobin (Bld) [Mass/Vol] 12.3 g/dL 11.5 - 15.5 g/dL [facility] Immature granulocytes (Bld) [#/Vol] [facility] Immature granulocytes/100 WBC (Bld) 0.2 % [facility] Lymphocytes (Bld) [#/Vol] 2.36 10*3/uL [facility] Lymphocytes/100 WBC (Bld) 38.5 % [facility] MCH (RBC) [Entitic mass] 30.0 pg 26. 0 - 34.[address] [facility] MCHC (RBC) [Mass/Vol] 31.5 g/dL 30.5 - 36.0 g/dL [facility] MCV (RBC) [Entitic vol] 95.4 fL 80.0 - 100.[address] [facility] Monocytes (Bld) [#/Vol] 0.39 10*3/uL [facility]F [facility] Monocytes/100 WBC (Bld) 6.4 % [facility] Neutrophils (Bld) [#/Vol] 2.93 10*3/uL [facility] Neutrophils/100 WBC (Bld) 47.7 % [facility] Nucleated RBC (Bld) [#/Vol] NINF [facility] Nucleated RBC/100 WBC (Bld) [Ratio] 0.0 % /[address] [facility] Platelet mean volume (Bld) [Entitic vol] 9.9 fL 9.0 - 12.[address] [facility] Platelets (Bld) [#/Vol] 266 10*3/uL [facility] RBC (Bld) [#/Vol] 4.10 10*6/uL 3.90 - 5.20 m/uL [facility] WBC (Bld) [#/Vol] 6.13 10*3/uL [facility] CT ABDOMEN WO IVCONon 2023 CT ABDOMEN WO IVCON [facility] Absolute lymphocyte countOrd ered By: Adryan Aguilera on 12-29-2023 Lymphocytes Auto (Unsp spec) [#/Vol] 1.27 10*3/uL 0.83-4.51 [facility] Absolute lymphocyte countOrd ered By: Ara Rehman on 12-29-2023 Lymphocytes Auto (Unsp spec) [#/Vol] 1.51 10*3/uL 0.83-4.51 [facility] Activated partial thrombopla stin time (aPTT) in platelet poor plasma by coagulation aOrdered By: Adryan Aguilera on 12-29-2023 aPTT Coag (PPP) [Time] 35.5 s 24.1-36.2 [facility] Automated lymphocyte count a s percentage of total leukocytesOrdered By: Adryan Aguilera on 12-29-2023 Lymphocytes/100 WBC Auto (Unsp spec) 18.8 % [facility] Automated lymphocyte count a s percentage of total leukocytesOrdered By: Ara Rehman on 12-29-2023 Lymphocytes/100 WBC Auto (Unsp spec) 22.4 % - [facility] Basophil percentageOrdered B y: Adryan Aguilera on 12-29-2023 Basophils/100 WBC (Bld) 0.9 % 0-1 [facility] Bilirubin [Mass/Vol] 0.30 mg/dL 0.20-1.00 [facility] Comment on above: For patients on eltr ombopag therapy, use of Dimension [place] TBIL is not recommended. Chloride [Moles/Vol] 105 mmol/L 98-107 [facility] Eosinophils/100 WBC (Bld) 4.1 % 0-5 [facility] Glucose [Mass/Vol] 103 mg/dL 74-106 [facility] Comment on above: Fasting Glucose resu lt from 100 to 125 mg/dL suggests IMPAIRED HOMEOSTASIS per A.D.A. criteria. Hemoglobin (Bld) [Mass/Vol] 11.1 g/dL 12.0-15. 0 [facility] Monocytes/100 WBC (Bld) 6.4 % 0-10 [facility] Neutrophils (Bld) [#/Vol] 4.7 10*3/uL 2.0-7.7 [facility] Neutrophils/100 WBC (Bld) 69.5 % 47-70 [facility] Potassium [Moles/Vol] 3.8 mmol/L 3.5-5.1 [facility] Protein [Mass/Vol] 7.3 g/dL 6.4-8.2 [facility] Sodium [Moles/Vol] 140 mmol/L 136-145 [facility] WBC (Bld) [#/Vol] 6.8 10*3/uL 4.4-11.0 [facility] Basophil percentage 0-5 SEEN /hpf 0-5 [facility] Basophil percentageOrdered B y: Aranegar Rehman on 12-29-2023 Basophils/100 WBC (Bld) 0.7 % 0-1 [facility] Chloride [Moles/Vol] 106 mmol/L 98-107 [facility] Cholesterol [Mass/Vol] 147 mg/dL <200 [facility] Comment on above: <200 mg/dL Desirable 200-240 mg/dL Borderline >240 mg/dL High Risk Eosinophils/100 WBC (Bld) 7.0 % 0-5 [facility] Glucose [Mass/Vol] 104 mg/dL 74-106 [facility] Comment on above: Fasting Glucose resu lt from 100 to 125 mg/dL suggests IMPAIRED HOMEOSTASIS per A.D.A. criteria. Hemoglobin (Bld) [Mass/Vol] 11.4 g/dL 12.0-15. 0 [facility] Monocytes/100 WBC (Bld) 8.2 % 0-10 [facility] Neutrophils (Bld) [#/Vol] 4.1 10*3/uL 2.0-7.7 [facility] Neutrophils/100 WBC (Bld) 61.3 % 47-70 [facility] Potassium [Moles/Vol] 3.7 mmol/L 3.5-5.1 [facility] Sodium [Moles/Vol] 140 mmol/L 136-145 [facility] Triglyceride [Mass/Vol] 194 mg/dL <199 [facility] Comment on above: The drugs N-Acetylcy steine and Metamizole may falsely depress this assay.Serum Triglycerides Reference Interval Normal <150 mg/dL Borderline high 150 - 199 mg/dL High 200 - 499 mg/dL Very High > or = 500 mg/dL WBC (Bld) [#/Vol] 6.7 10*3/uL 4.4-11.0 [facility] Bilirubin Test strip Ql (U)O rdered By: Adryan Aguilera on 12-29-2023 Bilirubin Ql (U) Negative Negative [facility] Determination of erythrocyte mean corpuscular volume (MCV)Ordered By: Adryan Aguilera on 12-29-2023 MCV (RBC) [Entitic vol] 94.8 fL 81-99 [facility] Determination of erythrocyte mean corpuscular volume (MCV)Ordered By: Ara Rehman on 12-29-2023 MCV (RBC) [Entitic vol] 94.5 fL 81-99 [facility] Erythrocyte distribution wid th ratioOrdered By: Adryan Aguilera on 12-29-2023 Erythrocyte distribution width (RBC) [Ratio] 12.6 % 11.6-14.6 [facility] Erythrocyte distribution wid th ratioOrdered By: Ara Rehman on 12-29-2023 Erythrocyte distribution width (RBC) [Ratio] 12.7 % 11.6-14.6 [facility] Erythrocyte distribution wid th standard deviationOrdered By: Adryan Aguilera on 12-29-2023 Erythrocyte distribution width (RBC) [Entitic vol] 43.4 fL 35.1-43.9 [facility] Erythrocyte distribution wid th standard deviationOrdered By: Ara Rehman on 12-29-2023 Erythrocyte distribution width (RBC) [Entitic vol] 43.1 fL 35.1-43.9 [facility] Hematocrit Auto (Bld) [Volum e fraction]Ordered By: Adryan Aguilera on 12-29-2023 Hematocrit (Bld) [Volume fraction] 34.9 % 37-47 [facility] Hematocrit Auto (Bld) [Volum e fraction]Ordered By: Ara Rehman on 12-29-2023 Hematocrit (Bld) [Volume fraction] 36.3 % 37-47 [facility] Immature granulocytes/100 WB C Auto (Bld)Ordered By: Adryan Aguilera on 12-29-2023 Immature granulocytes/100 WBC (Bld) 0.300 % 0.0-0.9 [facility] Comment on above: IG% - Immature Granu locytes (promyelocytes, myelocytes and metamyelocytes) > 1% indicates that a LEFT SHIFT is Present. Immature granulocytes/100 WB C Auto (Bld)Ordered By: Ara Rehman on 12-29-2023 Immature granulocytes/100 WBC (Bld) 0.400 % 0.0-0.9 [facility] Comment on above: IG% - Immature Granu locytes (promyelocytes, myelocytes and metamyelocytes) > 1% indicates that a LEFT SHIFT is Present. Ketones Test strip Ql (U)Ord ered By: Adryan Aguilera on 12-29-2023 Ketones Ql (U) Negative Negative [facility] Laboratory - Chemistry and C hemistry - challengeOrdered By: Adryan Aguilera on 12-29-2023 Albumin/Globulin [Mass ratio] 0.5 {ratio} 0.9-2.4 [facility] ALP [Catalytic activity/Vol] 182 U/L 45-117 [facility] ALT [Catalytic activity/Vol] 31 U/L 13-56 [facility] CO2 [Moles/Vol] 31.0 mmol/L 21.0-32.0 [facility] Globulin (S) [Mass/Vol] 4.8 g/dL 2.2-4.2 [facility] Lipase [Catalytic activity/Vol] 11 U/L 13-75 [facility] Comment on above: Please note:LIPASE r evised reference range effective 22. New Lipase methodology. Expected to produce lower values than the previous assay method. NEW Reference Range: 13 - 75 U/L Urea nitrogen/Creatinine [Mass ratio] 9.0 mg/mg 10- [facility] - Chemistry and C hemistry - challengeOrdered By: Ara Rehman on 12-29-2023 Cholesterol in HDL [Mass/Vol] 30 mg/dL >40 [facility] Comment on above: The drugs N-Acetylcy steine and Metamizole may falsely depress this assay. Reference Range HDL <40 mg/dL Low HDL Cholesterol HDL >or= 60 mg/dL High HDL Cholesterol Cholesterol in LDL [Mass/Vol] 78 mg/dL 0-130 [facility] CO2 [Moles/Vol] 31.0 mmol/L 21.0-32.0 [facility] Cobalamin (Vitamin B12) [Mass/Vol] 421 pg/mL 211-911 [facility] Magnesium [Mass/Vol] 2.2 mg/dL 1.6-2.6 [facility] Urea nitrogen/Creatinine [Mass ratio] 9.0 mg/mg 06-26 [facility] - CoagulationOrde red By: Adryan Aguilera on 12-29-2023 INR Coag (Bld) [Relative time] 1.1 {INR} [facility] PT Coag (PPP) [Time] 13.7 s 11.7-14.9 [facility] Laboratory - Hematology and Cell countsOrdered By: Adryan Aguilera on 12-29-2023 MCH (RBC) [Entitic mass] 30.2 pg 27.0-32.0 [facility] MCHC (RBC) [Mass/Vol] 31.8 g/dL 32-36 [facility] Nucleated RBC/100 WBC (Bld) [Ratio] 0 % 0-5 [facility] Platelet mean volume (Bld) [Entitic vol] 8.5 fL 6.2-12.0 [facility] Platelets (Bld) [#/Vol] 362 10*3/uL 150-450 [facility] - Hematology and Cell countsOrdered By: Ara Rehman on 12-29-2023 MCH (RBC) [Entitic mass] 29.7 pg 27.0-32.0 [facility] MCHC (RBC) [Mass/Vol] 31.4 g/dL 32-36 [facility] Nucleated RBC/100 WBC (Bld) [Ratio] 0 % 0-5 [facility] Platelet mean volume (Bld) [Entitic vol] 8.6 fL 6.2-12.0 [facility] Platelets (Bld) [#/Vol] 386 10*3/uL 150-450 [facility] Mucus LM Ql (Urine sed)Order ed By: Adryan Aguilera on 12-29-2023 Mucus Ql (Urine sed) 0 SEEN /hpf [facility] Nitrite Test strip Ql (U)Ord ered By: Adryan Aguilera on 12-29-2023 Nitrite Ql (U) Negative Negative [facility] No Panel InformationOrdered By: Adryan Aguilera on 12-29-2023 Estimated Creatinine Clearance Calc 64.33 ml/min [facility] Estimated GFR (MDRD) Amer 71 mL/min >60 [facility] Comment on above: GFR Calc Estimated GFR (MDRD) Non-Af Amer 59 mL/min >60 [facility] Comment on above: Non- GFR Calc Urine RBC 0 SEEN /hpf 0-5 [facility] No Panel InformationOrdered By: Ara Rehman on 12-29-2023 Estimated GFR (MDRD) Amer 71 mL/min >60 [facility] Comment on above: GFR Calc Estimated GFR (MDRD) Non-Af Amer 59 mL/min >60 [facility] Comment on above: Non- GFR Calc Vitamin D 25-Hydroxy 28.6 ng/mL [facility] Comment on above: Vitamin D 25(OH) Sta tus Range Deficiency <20 ng/mL (50nmol/L) Insufficiency 20 - 30 ng/mL (50 - 75 nmol/L) Sufficiency 30 - 100 ng/mL (75 - 250 nmol/L) Toxicity >100 ng/mL (>250 nmol/L) VLDL Cholesterol 39 mg/dL 5-40 [facility] Protein Test strip Ql (U)Ord ered By: Adryan Aguilera on 12-29-2023 Protein Ql (U) 15 mg/dl Negative [facility] RBC Auto (Bld) [#/Vol]Ordere d By: Adryan Aguilera on 12-29-2023 RBC (Bld) [#/Vol] 3.68 10*6/uL 4.2-5.4 [facility] RBC Auto (Bld) [#/Vol]Ordere d By: Ara Rehman on 12-29-2023 RBC (Bld) [#/Vol] 3.84 10*6/uL 4.2-5.4 [facility] Serum or plasma calcium areli urement (mass/volume)Ordered By: Adryan Aguilera on 12-29-2023 Calcium [Mass/Vol] 9.3 mg/dL 8.5-10.1 [facility] Serum or plasma calcium areli urement (mass/volume)Ordered By: Ara Rehman on 12-29-2023 Calcium [Mass/Vol] 9.3 mg/dL 8.5-10.1 [facility] Serum or plasma creatinine m easurement (mass/volume)Ordered By: Adryan Aguilera on 12-29-2023 Creatinine [Mass/Vol] 1.00 mg/dL 0.55-1.02 [facility] Comment on above: The validity of the calculated GFR & GFRAA in patients over 70 years has not been determined. Clinical correlation is essential. Serum or plasma creatinine m easurement (mass/volume)Ordered By: Ara Rehman on 12-29-2023 Creatinine [Mass/Vol] 1.00 mg/dL 0.55-1.02 [facility] Comment on above: The validity of the calculated GFR & GFRAA in patients over 70 years has not been determined. Clinical correlation is essential. Serum or plasma thyroid stim ulating hormone (TSH) measurement (units/volume)Ordered By: Ara Rehman on 12-29-2023 TSH Qn 0.76 uIU/mL 0.358-3.74 [facility] Serum or plasma urea nitroge n measurement (mass/volume)Ordered By: Adryan Aguilera on 12-29-2023 Urea nitrogen [Mass/Vol] 9 mg/dL 7- [facility] Serum or plasma urea nitroge n measurement (mass/volume)Ordered By: Ara Rehman on 12-29-2023 Urea nitrogen [Mass/Vol] 9 mg/dL 7-18 [facility] Squamous epithelial cells de tection in urine sediment by light microscopyOrdered By: Adryan Aguilera on 12-29-2023 Epithelial cells.squamous LM Ql (Urine sed) 0 SEEN /hpf 5-10 [facility] Thin prep Papanicolaou smear with manual screeningOrdered By: Adryan Aguilera on 12-29-2023 Thin prep Papanicolaou smear with manual screening 2.5 g/dL 3.2-5.0 [facility] Thin prep Papanicolaou smear with manual screening 44 U/L 15-37 [facility] Thin prep Papanicolaou smear with manual screening 4 5-15 [facility] Thin prep Papanicolaou smear with manual screeningOrdered By: Ara Rehman on 12-29-2023 Thin prep Papanicolaou smear with manual screening 3 5-15 [facility] Urine blood detectionOrdered By: Adryan Aguilera on 12-29-2023 RBC Ql (U) 10 /ul Negative [facility] Urine clarityOrdered By: Berenice Aguilera on 12-29-2023 Clarity (U) Clear Clear [facility] Urine color determinationOrd ered By: Adryan Aguilera on 12-29-2023 Color (U) Yellow Yellow [facility] Urine glucose detectionOrder ed By: Adryan Aguilera on 12-29-2023 Glucose Ql (U) Normal mg/dl Normal [facility] Urine leukocyte esterase det ection by dipstickOrdered By: Adryna Aguilera on 12-29-2023 Leukocyte esterase Test strip Ql (U) 100 /ul Negative [facility] Urine pHOrdered By: Adryan ackerman on 12-29-2023 pH (U) 5.0 [pH] 5.0 - 8.0 [facility] Urine sediment bacteria coun t by microscopy (number/high power field)Ordered By: Adryan Aguilera on 12-29-2023 Bacteria LM.HPF (Urine sed) [#/Area] 0 /[HPF] None Seen [facility] Urine specific gravity measu rementOrdered By: Adryan Aguilera on 12-29-2023 Specific gravity (U) [Rel density] 1.025 1.002-1.03 0 [facility] Urine urobilinogen measureme ntOrdered By: Adryan Aguilera on 12-29-2023 Urobilinogen Ql (U) Normal mg/dl Normal [facility] CASE MANAGEMon 12-28-2023 CASE MANAGEM Normal [facility] CASE MANAGEM Normal [facility] CBC panel Auto (Bld)on 12-27 Erythrocyte distribution width (RBC) [Ratio] 12.7 % Normal 11.5-15.0 [facility] Comment on above: Order Comment: Speci men Type: BLOOD SPECIMENOrdering Facility: [facility] Address: [address] [place] [address] Performed By: #### 5 8410-2 ####[facility] LABORATORYCLIA [id number] [address] [place] Hematocrit (Bld) [Volume fraction] 30.8 % Low 36.0-46.0 [facility] Comment on above: Order Comment: Speci men Type: BLOOD SPECIMENOrdering Facility: [facility] Address: [address] [place] [address] Performed By: #### 5 8410-2 ####[facility]ORATORYCLIA [id number] [place] [address] [place] Hemoglobin (Bld) [Mass/Vol] 9.7 g/dL Low 11.5-15. 5 [facility] Comment on above: Order Comment: Speci men Type: BLOOD SPECIMENOrdering Facility: [facility] Address: [address] [place] [address] Performed By: #### 5 8410-2 ####[facility] LABORATORYCLIA [id number] [place] [address] [place] MCH (RBC) [Entitic mass] 29.7 pg Normal 26.0-34.0 [facility] Comment on above: Order Comment: Speci men Type: BLOOD SPECIMENOrdering Facility: [facility] Address: [address] [place] [address] Performed By: #### 5 8410-2 ####[facility] LABORATORYCLIA [id number] [address] MCHC (RBC) [Mass/Vol] 31.5 g/dL Normal 30.5-36.0 [facility] Comment on above: Order Comment: Speci men Type: BLOOD SPECIMENOrdering Facility: [facility] Address: [address] [place] [address] Performed By: #### 5 8410-2 ####HAND LABORATORYCLIA [id number] [address] MCV (RBC) [Entitic vol] 94.2 fL Normal 80.0-100.0 [facility] Comment on above: Order Comment: Speci men Type: BLOOD SPECIMENOrdering Facility: [facility] Address: [address] [place] [address] Performed By: #### 5 8410-2 ####HAND LABORATORYCLIA [id number] [address] Nucleated RBC (Bld) [#/Vol] 10*3/uL Normal <0.01 [facility] Comment on above: Order Comment: Speci men Type: BLOOD SPECIMENOrdering Facility: [facility] Address: [address] [place] [address] Performed By: #### 5 8410-2 ####HAND LABORATORYCLIA [id number] [address] Platelet mean volume (Bld) [Entitic vol] 8.6 fL Low 9.0-12.7 [facility] Comment on above: Order Comment: Speci men Type: BLOOD SPECIMENOrdering Facility: [facility] Address: [address] [place] [address] Performed By: #### 5 8410-2 ####HAND LABORATORYCLIA [id number] [address] [place] Platelets (Bld) [#/Vol] 333 10*3/uL Normal 150-400 [facility] Comment on above: Order Comment: Speci men Type: BLOOD SPECIMENOrdering Facility: [facility] Address: [address] [place] [address] Performed By: #### 5 8410-2 ####HAND LABORATORYCLIA [id number] [address] OF [facility] RBC (Bld) [#/Vol] 3.27 10*6/uL Low 3.90-5.20 [facility] Comment on above: Order Comment: Speci men Type: BLOOD SPECIMENOrdering Facility: [facility] Address: [address] [place] [address] Performed By: #### 5 8410-2 ####[facility]ATORYCLIA [id number] [address] WBC (Bld) [#/Vol] 5.70 10*3/uL Normal 3.70-11.00 [facility] Comment on above: Order Comment: Speci men Type: BLOOD SPECIMENOrdering Facility: [facility] Address: [address] [place] [address] Performed By: #### 5 8410-2 ####[facility]ORATORYCLIA [id number] [address] [place] CNDSon 12-28-2023 CNDS Normal [facility] CONSULT PROGon 12-28-2023 CONSULT PROG [facility] CONSULT PROG Normal [facility] Comprehensive metabolic 2000 panelon 12-28-2023 Albumin [Mass/Vol] 3.4 g/dL Low 3.9-4.9 [facility] Comment on above: Order Comment: Speci men Type: BLOOD SPECIMENOrdering Facility: [facility] Address: [address] [place] [address] Performed By: #### 2 4323-8 ####HAND LABORATORYCLIA [id number] [address] ALP [Catalytic activity/Vol] 165 U/L High 34-123 [facility] Comment on above: Order Comment: Speci men Type: BLOOD SPECIMENOrdering Facility: [facility] Address: [address] [place] [address] Performed By: #### 2 4323-8 ####HAND LABORATORYCLIA [id number] [address] ALT [Catalytic activity/Vol] 15 U/L Normal 7-38 [facility] Comment on above: Order Comment: Speci men Type: BLOOD SPECIMENOrdering Facility: [facility] Address: [address] [place] [address] Performed By: #### 2 4323-8 ####HAND LABORATORYCLIA [id number] [place] [address] [place] Anion gap [Moles/Vol] 5 mmol/L Low 9-18 [facility] Comment on above: Order Comment: Speci men Type: BLOOD SPECIMENOrdering Facility: [facility] Address: [address] [place] [address] Performed By: #### 2 4323-8 ####HAND LABORATORYCLIA [id number] [address] [place] AST [Catalytic activity/Vol] 26 U/L Normal 13-35 [facility] Comment on above: Order Comment: Speci men Type: BLOOD SPECIMENOrdering Facility: [facility] Address: [address] [place] [address] Performed By: #### 2 4323-8 ####HAND LABORATORYCLIA [id number] [address] [place] Bilirubin [Mass/Vol] 0.2 mg/dL Normal 0.2-1.3 [facility] Comment on above: Order Comment: Speci men Type: BLOOD SPECIMENOrdering Facility: [facility] Address: [address] [place] [address] Performed By: #### 2 4323-8 ####HAND LABORATORYCLIA [id number] [address] [place] Calcium [Mass/Vol] 9.5 mg/dL Normal 8.5-10.2 [facility] Comment on above: Order Comment: Speci men Type: BLOOD SPECIMENOrdering Facility: [facility] Address: [address] [place] [address] Performed By: #### 2 4323-8 ####HAND LABORATORYCLIA [id number] [address] STATES [facility] Chloride [Moles/Vol] 105 mmol/L Normal 97-105 [facility] Comment on above: Order Comment: Speci men Type: BLOOD SPECIMENOrdering Facility: [facility] Address: [address] [place] [address] Performed By: #### 2 4323-8 ####HAND LABORATORYCLIA [id number] [address] CO2 [Moles/Vol] 35 mmol/L High 22-30 [facility] Comment on above: Order Comment: Cesar piper Type: BLOOD SPECIMENOrdering Facility: [facility] Address: [address] [place] [address] Performed By: #### 2 4323-8 ####HAND LABORATORYCLIA [id number] [address] Creatinine [Mass/Vol] 1.24 mg/dL High 0.58-0.96 [facility] Comment on above: Order Comment: Specchristiano men Type: BLOOD SPECIMENOrdering Facility: [facility] Address: [address] [place] [address] Performed By: #### 2 4323-8 ####HAND LABORATORYCLIA [id number] [address] Creatinine and Glomerular filtration rate.predicted panel (S/P/Bld) 48 mL/min/1.73m??? Low >=60 [facility] Comment on above: Order Comment: Cesar [facility] Type: BLOOD SPECIMENOrdering Facility: [facility] Address: [address] [place] [address] Result Comment: Sweta mated Glomerular Filtration Rate [...] Performed By: #### 2 4323-8 ####HAND LABORATORYCLIA [id number] [place] [address] [place] Glucose [Mass/Vol] 96 mg/dL Normal 74-99 [facility] Comment on above: Order Comment: Cesar piper Type: BLOOD SPECIMENOrdering Facility: [facility] Address: [address] [place] [address] Result Comment: The [place] Diabetes [employer] (ADA) provides guidance for cutoff [...] Standards of Medical Care in Diabetes 2016, [place] [employer]. Diabetes Care. 2016.39(Suppl 1). Performed By: #### 2 4323-8 ####HAND LABORATORYCLIA [id number] [place] [address] [place] Potassium [Moles/Vol] 4.3 mmol/L Normal 3.7-5.1 [facility] Comment on above: Order Comment: Cesar piper Type: BLOOD SPECIMENOrdering Facility: [facility] Address: [address] [place] [address] Performed By: #### 2 4323-8 ####HAND LABORATORYCLIA [id number] [place] [address] [place] Protein [Mass/Vol] 6.3 g/dL Normal 6.3-8.0 [facility] Comment on above: Order Comment: Cesar piper Type: BLOOD SPECIMENOrdering Facility: [facility] Address: [address] [place] [address] Performed By: #### 2 4323-8 ####HAND LABORATORYCLIA [id number] [place] [address] [place] Sodium [Moles/Vol] 145 mmol/L High 136-144 [facility] Comment on above: Order Comment: Speci men Type: BLOOD SPECIMENOrdering Facility: [facility] Address: [address] [place] [address] Performed By: #### 2 4323-8 ####HAND LABORATORYCLIA [id number] [address] Urea nitrogen [Mass/Vol] 12 mg/dL Normal - [facility] Comment on above: Order Comment: Speci men Type: BLOOD SPECIMENOrdering Facility: [facility] Address: [address] [place] [address] Performed By: #### 2 4323-8 ####HAND LABORATORYCLIA [id number] [address] OF [facility] NURSING PROGon 12-28-2023 NURSING PROG Normal [facility] CBC panel Auto (Bld)on 12-26 Erythrocyte distribution width (RBC) [Ratio] 12.8 % Normal 11.5-15.0 [facility] Comment on above: Order Comment: Speci men Type: BLOOD SPECIMENOrdering Facility: [facility] Address: [address] [place] [address] Performed By: #### 5 8410-2 ####HAND LABORATORYCLIA [id number] [address] Hematocrit (Bld) [Volume fraction] 32.6 % Low 36.0-46.0 [facility] Comment on above: Order Comment: Speci men Type: BLOOD SPECIMENOrdering Facility: [facility] Address: [address] [place] [address] Performed By: #### 5 8410-2 ####HAND LABORATORYCLIA [id number] [address] Hemoglobin (Bld) [Mass/Vol] 10.4 g/dL Low 11.5-15. 5 [facility] Comment on above: Order Comment: Speci men Type: BLOOD SPECIMENOrdering Facility: [facility] Address: [address] [place] [address] Performed By: #### 5 8410-2 ####HAND LABORATORYCLIA [id number] [address] MCH (RBC) [Entitic mass] 30.3 pg Normal 26.0-34.0 [facility] Comment on above: Order Comment: Speci men Type: BLOOD SPECIMENOrdering Facility: [facility] Address: [address] [place] [address] Performed By: #### 5 8410-2 ####HAND LABORATORYCLIA [id number] [address] [place] MCHC (RBC) [Mass/Vol] 31.9 g/dL Normal 30.5-36.0 [facility] Comment on above: Order Comment: Speci men Type: BLOOD SPECIMENOrdering Facility: [facility] Address: [address] [place] [address] Performed By: #### 5 8410-2 ####HAND LABORATORYCLIA [id number] [address] MCV (RBC) [Entitic vol] 95.0 fL Normal 80.0-100.0 [facility] Comment on above: Order Comment: Speci men Type: BLOOD SPECIMENOrdering Facility: [facility] Address: [address] [place] [address] Performed By: #### 5 8410-2 ####HAND LABORATORYCLIA [id number] [address] Nucleated RBC (Bld) [#/Vol] 10*3/uL Normal <0.01 [facility] Comment on above: Order Comment: Speci men Type: BLOOD SPECIMENOrdering Facility: [facility] Address: [address] [place] [address] Performed By: #### 5 8410-2 ####HAND LABORATORYCLIA [id number] [address] Platelet mean volume (Bld) [Entitic vol] 8.6 fL Low 9.0-12.7 [facility] Comment on above: Order Comment: Speci men Type: BLOOD SPECIMENOrdering Facility: [facility] Address: [address] [place] [address] Performed By: #### 5 8410-2 ####HAND LABORATORYCLIA [id number] [place] [address] [facility] [place] Platelets (Bld) [#/Vol] 364 10*3/uL Normal 150-400 [facility] Comment on above: Order Comment: Speci men Type: BLOOD SPECIMENOrdering Facility: [facility] Address: [address] [place] [address] Performed By: #### 5 8410-2 ####HAND LABORATORYCLIA [id number] [place] [address] [place] RBC (Bld) [#/Vol] 3.43 10*6/uL Low 3.90-5.20 [facility] Comment on above: Order Comment: Speci men Type: BLOOD SPECIMENOrdering Facility: [facility] Address: [address] [place] [address] Performed By: #### 5 8410-2 ####HAND LABORATORYCLIA [id number] [address] [place] WBC (Bld) [#/Vol] 5.83 10*3/uL Normal 3.70-11.00 [facility] Comment on above: Order Comment: Speci men Type: BLOOD SPECIMENOrdering Facility: [facility] Address: [address] [place] [address] Performed By: #### 5 8410-2 ####HAND LABORATORYCLIA [id number] [place] [id number] [facility] [place] CONSULT PROGon 12-27-2023 CONSULT PROG Normal [facility] CONSULT PROG Normal [facility] Comprehensive metabolic 2000 panelon 12-27-2023 Albumin [Mass/Vol] 3.2 g/dL Low 3.9-4.9 [facility] Comment on above: Order Comment: Speci men Type: BLOOD SPECIMENOrdering Facility: [facility] Address: [address] [place] [address] Performed By: #### 2 4323-8 ####HAND LABORATORYCLIA [id number] [place] [address] [place] ALP [Catalytic activity/Vol] 184 U/L High 34-123 [facility] Comment on above: Order Comment: Speci men Type: BLOOD SPECIMENOrdering Facility: [facility] Address: [address] [place] [address] Performed By: #### 2 4323-8 ####HAND LABORATORYCLIA [id number] [place], [place] [address] [place] [address] [place] ALT [Catalytic activity/Vol] 10 U/L Normal 7-38 [facility] Comment on above: Order Comment: Speci men Type: BLOOD SPECIMENOrdering Facility: [facility] Address: [address] [place] [address] Performed By: #### 2 4323-8 ####HAND LABORATORYCLIA [id number] [place] [address] [place] Anion gap [Moles/Vol] 6 mmol/L Low 9-18 [facility] Comment on above: Order Comment: Speci men Type: BLOOD SPECIMENOrdering Facility: [facility] Address: [address] [place] [address] Performed By: #### 2 4323-8 ####HAND LABORATORYCLIA [id number] [address] [place] AST [Catalytic activity/Vol] 21 U/L Normal 13-35 [facility] Comment on above: Order Comment: Speci men Type: BLOOD SPECIMENOrdering Facility: [facility] Address: [address] [place] [address] Performed By: #### 2 4323-8 ####HAND LABORATORYCLIA [id number] [place] [address] [place] Bilirubin [Mass/Vol] mg/dL Low 0.2-1.3 [facility] Comment on above: Order Comment: Speci men Type: BLOOD SPECIMENOrdering Facility: [facility] Address: [address] [place] [address] Performed By: #### 2 4323-8 ####HAND LABORATORYCLIA [id number] [place] [address] [place] Calcium [Mass/Vol] 9.4 mg/dL Normal 8.5-10.2 [facility] Comment on above: Order Comment: Speci men Type: BLOOD SPECIMENOrdering Facility: [facility] Address: [address] [place] [address] Performed By: #### 2 4323-8 ####HAND LABORATORYCLIA [id number] [place] [address] [place] Chloride [Moles/Vol] 103 mmol/L Normal 97-105 [facility] Comment on above: Order Comment: Speci men Type: BLOOD SPECIMENOrdering Facility: [facility] Address: [address] [place] [address] Performed By: #### 2 4323-8 ####HAND LABORATORYCLIA [id number] [place] [address] [place] CO2 [Moles/Vol] 32 mmol/L High 22-30 [facility] Comment on above: Order Comment: Speci men Type: BLOOD SPECIMENOrdering Facility: [facility] Address: [address] [place] [address] Performed By: #### 2 4323-8 ####HAND LABORATORYCLIA [id number] [address] [place] Creatinine [Mass/Vol] 1.15 mg/dL High 0.58-0.96 [facility] Comment on above: Order Comment: Holai men Type: BLOOD SPECIMENOrdering Facility: [facility] Address: [address] [place] [address] Performed By: #### 2 4323-8 ####HAND LABORATORYCLIA [id number] [address] Creatinine and Glomerular filtration rate.predicted panel (S/P/Bld) 52 mL/min/1.73m??? Low >=60 [facility] Comment on above: Order Comment: Speci men Type: BLOOD SPECIMENOrdering Facility: [facility] Address: [address] [place] [address] Result Comment: Sweta mated Glomerular Filtration Rate [...] actual GFR. Performed By: #### 2 4323-8 ####[facility] LABORATORYCLIA [id number] [place] [address] [place] Glucose [Mass/Vol] 108 mg/dL High 74-99 [facility] Comment on above: Order Comment: Cesar piper Type: BLOOD SPECIMENOrdering Facility: [facility] Address: [address] [place] [address] Result Comment: The [place] Diabetes [employer] (ADA) provides guidance for cutoff [...] Standards of Medical Care in Diabetes 2016, [place] [employer]. Diabetes Care. 2016.39(Suppl 1). Performed By: #### 2 4323-8 ####[facility] LABORATORYCLIA [id number] [place] [address] [place] Potassium [Moles/Vol] 4.2 mmol/L Normal 3.7-5.1 [facility] Comment on above: Order Comment: Cesar piper Type: BLOOD SPECIMENOrdering Facility: [facility] Address: [address] [place] [address] Performed By: #### 2 4323-8 ####HAND LABORATORYCLIA [id number] [place] [id number] [place] Protein [Mass/Vol] 6.7 g/dL Normal 6.3-8.0 [facility] Comment on above: Order Comment: Cesar piper Type: BLOOD SPECIMENOrdering Facility: [facility] Address: [address] [place] [address] Performed By: #### 2 4323-8 ####HAND LABORATORYCLIA [id number] [address] [place] Sodium [Moles/Vol] 141 mmol/L Normal 136-144 [facility] Comment on above: Order Comment: Speci men Type: BLOOD SPECIMENOrdering Facility: [facility] Address: [address] [place] [address] Performed By: #### 2 4323-8 ####HAND LABORATORYCLIA [id number] [place] [address] [place] Urea nitrogen [Mass/Vol] 10 mg/dL Normal 7- [facility] Comment on above: Order Comment: Speci men Type: BLOOD SPECIMENOrdering Facility: [facility] Address: [address] [place] [address] Performed By: #### 2 4323-8 ####HAND LABORATORYCLIA [id number] [place] [address] [place] NUTRITIONon 12-27-2023 NUTRITION Normal [facility] ALLIED HEALTHon 12-26-2023 [facility] CBC panel Auto (Bld)on 12-25 Erythrocyte distribution width (RBC) [Ratio] 12.6 % Normal 11.5-15.0 [facility] Comment on above: Order Comment: Speci men Type: BLOOD SPECIMENOrdering Facility: [facility] Address: [address] [place] [address] Performed By: #### 5 8410-2 ####HAND LABORATORYCLIA [id number] [place] [address] [place] Hematocrit (Bld) [Volume fraction] 33.2 % Low 36.0-46.0 [facility] Comment on above: Order Comment: Speci men Type: BLOOD SPECIMENOrdering Facility: [facility] Address: [address] [place] [address] Performed By: #### 5 8410-2 ####HAND LABORATORYCLIA [id number] [place] [address] [place] Hemoglobin (Bld) [Mass/Vol] 10.3 g/dL Low 11.5-15. 5 [facility] Comment on above: Order Comment: Speci men Type: BLOOD SPECIMENOrdering Facility: [facility] Address: [address] [place] [address] Performed By: #### 5 8410-2 ####HAND LABORATORYCLIA [id number] [address] [place] MCH (RBC) [Entitic mass] 29.9 pg Normal 26.0-34.0 [facility] Comment on above: Order Comment: Speci men Type: BLOOD SPECIMENOrdering Facility: [facility] Address: [address] [place] [address] Performed By: #### 5 8410-2 ####HAND LABORATORYCLIA [id number] [address] [place] MCHC (RBC) [Mass/Vol] 31.0 g/dL Normal 30.5-36.0 [facility] Comment on above: Order Comment: Speci men Type: BLOOD SPECIMENOrdering Facility: [facility] Address: [address] [place] [address] Performed By: #### 5 8410-2 ####HAND LABORATORYCLIA [id number] [address] MCV (RBC) [Entitic vol] 96.2 fL Normal 80.0-100.0 [facility] Comment on above: Order Comment: Speci men Type: BLOOD SPECIMENOrdering Facility: [facility] Address: [address] [place] [address] Performed By: #### 5 8410-2 ####HAND LABORATORYCLIA [id number] [address] [place] Nucleated RBC (Bld) [#/Vol] 10*3/uL Normal <0.01 [facility] Comment on above: Order Comment: Speci men Type: BLOOD SPECIMENOrdering Facility: [facility] Address: [address] [place] [address] Performed By: #### 5 8410-2 ####HAND LABORATORYCLIA [id number] [address] [place] Platelet mean volume (Bld) [Entitic vol] 8.8 fL Low 9.0-12.7 [facility] Comment on above: Order Comment: Speci men Type: BLOOD SPECIMENOrdering Facility: [facility] Address: [address] [place] [address] Performed By: #### 5 8410-2 ####HAND LABORATORYCLIA [id number] [address] Platelets (Bld) [#/Vol] 398 10*3/uL Normal 150-400 [facility] Comment on above: Order Comment: Speci men Type: BLOOD SPECIMENOrdering Facility: [facility] Address: [address] [place] [address] Performed By: #### 5 8410-2 ####HAND LABORATORYCLIA [id number] [place] [address] [place] RBC (Bld) [#/Vol] 3.45 10*6/uL Low 3.90-5.20 [facility] Comment on above: Order Comment: Speci men Type: BLOOD SPECIMENOrdering Facility: [facility] Address: [address] [place] [address] Performed By: #### 5 8410-2 ####HAND LABORATORYCLIA [id number] [address] WBC (Bld) [#/Vol] 7.45 10*3/uL Normal 3.70-11.00 [facility] Comment on above: Order Comment: Speci men Type: BLOOD SPECIMENOrdering Facility: [facility] Address: [address] [place] [address] Performed By: #### 5 8410-2 ####HAND LABORATORYCLIA [id number] [address] CONSULT PROGon 12-26-2023 CONSULT PROG Normal [facility] CONSULT PROG Normal [facility] CONSULT PROG Normal [facility] Comprehensive metabolic 2000 panelon 12-26-2023 Albumin [Mass/Vol] 3.2 g/dL Low 3.9-4.9 [facility] Comment on above: Order Comment: Speci men Type: BLOOD SPECIMENOrdering Facility: [facility] Address: [address] [place] [address] Performed By: #### 2 4323-8 ####HAND LABORATORYCLIA [id number] [place] [address] [place] ALP [Catalytic activity/Vol] 174 U/L High 34-123 [facility] Comment on above: Order Comment: Speci men Type: BLOOD SPECIMENOrdering Facility: [facility] Address: [address] [place] [address] Performed By: #### 2 4323-8 ####HAND LABORATORYCLIA [id number] [place] [address] [place] ALT [Catalytic activity/Vol] 5 U/L Low 7-38 [facility] Comment on above: Order Comment: Speci men Type: BLOOD SPECIMENOrdering Facility: [facility] Address: [address] [place] [address] Performed By: #### 2 4323-8 ####HAND LABORATORYCLIA [id number] [place] [address] [place] Anion gap [Moles/Vol] 9 mmol/L Normal 9-18 [facility] Comment on above: Order Comment: Speci men Type: BLOOD SPECIMENOrdering Facility: [facility] Address: [address] [place] [address] Performed By: #### 2 4323-8 ####HAND LABORATORYCLIA [id number] [address] [place] AST [Catalytic activity/Vol] 15 U/L Normal 13-35 [facility] Comment on above: Order Comment: Speci men Type: BLOOD SPECIMENOrdering Facility: [facility] Address: [address] [place] [address] Performed By: #### 2 4323-8 ####HAND LABORATORYCLIA [id number] [place] [address] [place] Bilirubin [Mass/Vol] 0.2 mg/dL Normal 0.2-1.3 [facility] Comment on above: Order Comment: Speci men Type: BLOOD SPECIMENOrdering Facility: [facility] Address: [address] [place] [address] Performed By: #### 2 4323-8 ####HAND LABORATORYCLIA [id number] [place] [address] [place] Calcium [Mass/Vol] 9.6 mg/dL Normal 8.5-10.2 [facility] Comment on above: Order Comment: Speci men Type: BLOOD SPECIMENOrdering Facility: [facility] Address: [address] [place] [address] Performed By: #### 2 4323-8 ####HAND LABORATORYCLIA [id number] [place] [address] [place] Chloride [Moles/Vol] 104 mmol/L Normal 97-105 [facility] Comment on above: Order Comment: Speci men Type: BLOOD SPECIMENOrdering Facility: [facility] Address: [address] [place] [address] Performed By: #### 2 4323-8 ####HAND LABORATORYCLIA [id number] [place] [address] [place] CO2 [Moles/Vol] 30 mmol/L Normal 22-30 [facility] Comment on above: Order Comment: Speci men Type: BLOOD SPECIMENOrdering Facility: [facility] Address: [address] [place] [address] Performed By: #### 2 4323-8 ####HAND LABORATORYCLIA [id number] [place] [address] [place] Creatinine [Mass/Vol] 1.06 mg/dL High 0.58-0.96 [facility] Comment on above: Order Comment: Speci men Type: BLOOD SPECIMENOrdering Facility: [facility] Address: [address] [place] [address] Performed By: #### 2 4323-8 ####HAND LABORATORYCLIA [id number] [place] [address] [facility] [place] Creatinine and Glomerular filtration rate.predicted panel (S/P/Bld) 58 mL/min/1.73m??? Low >=60 [facility] Comment on above: Order Comment: Speci men Type: BLOOD SPECIMENOrdering Facility: [facility] Address: [address] [place] [address] Result Comment: Sweta mated Glomerular Filtration Rate [...] Performed By: #### 2 4323-8 ####HAND LABORATORYCLIA [id number] [place] [id number] [place] Glucose [Mass/Vol] 90 mg/dL Normal 74-99 [facility] Comment on above: Order Comment: Cesar piper Type: BLOOD SPECIMENOrdering Facility: [facility] Address: [address] [place] [address] Result Comment: The [place] Diabetes Association (ADA) provides guidance for cutoff [...] Standards of Medical Care in Diabetes 2016, [place] [employer]. Diabetes Care. 2016.39(Suppl 1). Performed By: #### 2 4323-8 ####HAND LABORATORYCLIA [id number] [place] [id number] [place] Potassium [Moles/Vol] 3.9 mmol/L Normal 3.7-5.1 [facility] Comment on above: Order Comment: Cesar piper Type: BLOOD SPECIMENOrdering Facility: [facility] Address: [address] [place] [address] Performed By: #### 2 4323-8 ####HAND LABORATORYCLIA [id number] [place] [id number] [place] Protein [Mass/Vol] 6.5 g/dL Normal 6.3-8.0 [facility] Comment on above: Order Comment: Cesar piper Type: BLOOD SPECIMENOrdering Facility: [facility] Address: [address] [place] [id number] Performed By: #### 2 4323-8 ####HAND LABORATORYCLIA [id number] [address] [place] Sodium [Moles/Vol] 143 mmol/L Normal 136-144 [facility] Comment on above: Order Comment: Speci men Type: BLOOD SPECIMENOrdering Facility: [facility] Address: [address] [place] [address] Performed By: #### 2 4323-8 ####HAND LABORATORYCLIA [id number] [address] [place] Urea nitrogen [Mass/Vol] 6 mg/dL Low 7-21 [facility] Comment on above: Order Comment: Speci men Type: BLOOD SPECIMENOrdering Facility: [facility] Address: [address] [place] [address] Performed By: #### 2 4323-8 ####[facility] LABORATORYCLIA [id number] [address] [place] NURSING PROGon 12-26-2023 NURSING PROG Normal [facility] US KIDNEY/BLADDERon 12-26-19 24 US KIDNEY/BLADDER Normal [facility] Bacteria Spec Anaerobe Culto n 12-25-2023 Bacteria identified Anaer cx Nom (Unsp spec) Negative Normal [facility] Comment on above: Performed By: #### 6 35-3, 6462-6 ####[facility] LABCLIA [id number] [address] [place] Bacteria Wnd Culton 12-25-19 24 Bacteria identified Cx Nom (Wound) Abnormal [facility] Comment on above: Performed By: #### 6 462-6 ####[facility] LABCLIA [id number] [place] [address] [place] Performed By: #### 6 35-3, 6462-6 ####[facility] LABCLIA [id number] [facility] [place] [id number] [place] CASE MANAGEMon 12-25-2023 CASE MANAGEM Normal [facility] CBC panel Auto (Bld)on 12-24 Erythrocyte distribution width (RBC) [Ratio] 12.6 % Normal 11.5-15.0 [facility] Comment on above: Order Comment: Speci men Type: BLOOD SPECIMENOrdering Facility: [facility] Address: [address] [place] [address] Performed By: #### 5 8410-2 ####HAND LABORATORYCLIA [id number] [address] Hematocrit (Bld) [Volume fraction] 31.0 % Low 36.0-46.0 [facility] Comment on above: Order Comment: Speci men Type: BLOOD SPECIMENOrdering Facility: [facility] Address: [address] [place] [address] Performed By: #### 5 8410-2 ####HAND LABORATORYCLIA [id number] [address] [place] Hemoglobin (Bld) [Mass/Vol] 9.8 g/dL Low 11.5-15. 5 [facility] Comment on above: Order Comment: Speci men Type: BLOOD SPECIMENOrdering Facility: [facility] Address: [address] [place] [address] Performed By: #### 5 8410-2 ####HAND LABORATORYCLIA [id number] [address] MCH (RBC) [Entitic mass] 30.3 pg Normal 26.0-34.0 [facility] Comment on above: Order Comment: Speci men Type: BLOOD SPECIMENOrdering Facility: [facility] Address: [address] [place] [address] Performed By: #### 5 8410-2 ####HAND LABORATORYCLIA [id number] [address] STATES [facility] MCHC (RBC) [Mass/Vol] 31.6 g/dL Normal 30.5-36.0 [facility] Comment on above: Order Comment: Speci men Type: BLOOD SPECIMENOrdering Facility: [facility] Address: [address] [place] [address] Performed By: #### 5 8410-2 ####HAND LABORATORYCLIA [id number] [address] MCV (RBC) [Entitic vol] 96.0 fL Normal 80.0-100.0 M [facility] Comment on above: Order Comment: Speci men Type: BLOOD SPECIMENOrdering Facility: [facility] Address: [address] [place] [address] Performed By: #### 5 8410-2 ####HAND LABORATORYCLIA [id number] [address] [place] Nucleated RBC (Bld) [#/Vol] 10*3/uL Normal <0.01 [facility] Comment on above: Order Comment: Speci men Type: BLOOD SPECIMENOrdering Facility: [facility] Address: [address] [place] [address] Performed By: #### 5 8410-2 ####HAND LABORATORYCLIA [id number] [address] Platelet mean volume (Bld) [Entitic vol] 8.9 fL Low 9.0-12.7 [facility] Comment on above: Order Comment: Speci men Type: BLOOD SPECIMENOrdering Facility: [facility] Address: [address] [place] [address] Performed By: #### 5 8410-2 ####HAND LABORATORYCLIA [id number] [address] [place] Platelets (Bld) [#/Vol] 359 10*3/uL Normal 150-400 [facility] Comment on above: Order Comment: Speci men Type: BLOOD SPECIMENOrdering Facility: [facility] Address: [address] [place] [address] Performed By: #### 5 8410-2 ####HAND LABORATORYCLIA [id number] [address] [place] RBC (Bld) [#/Vol] 3.23 10*6/uL Low 3.90-5.20 [facility] Comment on above: Order Comment: Speci men Type: BLOOD SPECIMENOrdering Facility: [facility] Address: [address] [place] [address] Performed By: #### 5 8410-2 ####HAND LABORATORYCLIA [id number] [place] [address] [place] WBC (Bld) [#/Vol] 8.76 10*3/uL Normal 3.70-11.00 [facility] Comment on above: Order Comment: Speci men Type: BLOOD SPECIMENOrdering Facility: [facility] Address: [address] [place] [address] Performed By: #### 5 8410-2 ####HAND LABORATORYCLIA [id number] [address] OF [facility] CONSULT PROGon 12-25-2023 CONSULT PROG [facility] CONSULT PROG [facility] CT DRAIN PLACE SFT TISS FLUI D BIon 12-25-[address] SFT TISS FLUID BI Normal [facility] Comprehensive metabolic 2000 panelon 12-25-2023 Albumin [Mass/Vol] 3.0 g/dL Low 3.9-4.9 [facility] Comment on above: Order Comment: Speci men Type: BLOOD SPECIMENOrdering Facility: [facility] Address: [address] [place] [address] Performed By: #### 2 4323-8 ####HAND LABORATORYCLIA [id number] [address] ALP [Catalytic activity/Vol] 160 U/L High 34-123 [facility] Comment on above: Order Comment: Speci men Type: BLOOD SPECIMENOrdering Facility: [facility] Address: [address] [place] [address] Performed By: #### 2 4323-8 ####HAND LABORATORYCLIA [id number] [address] [place] ALT [Catalytic activity/Vol] U/L Low 7-38 [facility] Comment on above: Order Comment: Speci men Type: BLOOD SPECIMENOrdering Facility: [facility] Address: [address] [place] [address] Performed By: #### 2 4323-8 ####HAND LABORATORYCLIA [id number] [place] [address] [place] Anion gap [Moles/Vol] 9 mmol/L Normal 9-18 [facility] Comment on above: Order Comment: Speci men Type: BLOOD SPECIMENOrdering Facility: [facility] Address: [address] [place] [address] Performed By: #### 2 4323-8 ####HAND LABORATORYCLIA [id number] [place] [address] [place] AST [Catalytic activity/Vol] 11 U/L Low 13-35 [facility] Comment on above: Order Comment: Speci men Type: BLOOD SPECIMENOrdering Facility: [facility] Address: [address] [place] [address] Performed By: #### 2 4323-8 ####HAND LABORATORYCLIA [id number] [address] [place] Bilirubin [Mass/Vol] 0.2 mg/dL Normal 0.2-1.3 [facility] Comment on above: Order Comment: Speci men Type: BLOOD SPECIMENOrdering Facility: [facility] Address: [address] [place] [address] Performed By: #### 2 4323-8 ####HAND LABORATORYCLIA [id number] [address] [place] Calcium [Mass/Vol] 9.1 mg/dL Normal 8.5-10.2 [facility] Comment on above: Order Comment: Speci men Type: BLOOD SPECIMENOrdering Facility: [facility] Address: [address] [place] [address] Performed By: #### 2 4323-8 ####HAND LABORATORYCLIA [id number] [address] [place] Chloride [Moles/Vol] 106 mmol/L High 97-105 [facility] Comment on above: Order Comment: Speci men Type: BLOOD SPECIMENOrdering Facility: [facility] Address: [address] [place] [id number] Performed By: #### 2 4323-8 ####HAND LABORATORYCLIA [id number] [address] [place] CO2 [Moles/Vol] 29 mmol/L Normal 22-30 [facility] Comment on above: Order Comment: Cesar piper Type: BLOOD SPECIMENOrdering Facility: [facility] Address: [address] [place] [address] Performed By: #### 2 4323-8 ####HAND LABORATORYCLIA [id number] [address] [place] Creatinine [Mass/Vol] 1.05 mg/dL High 0.58-0.96 [facility] Comment on above: Order Comment: Cesar men Type: BLOOD SPECIMENOrdering Facility: [facility] Address: [address] [place] [address] Performed By: #### 2 4323-8 ####HAND LABORATORYCLIA [id number] [address] Creatinine and Glomerular filtration rate.predicted panel (S/P/Bld) 58 mL/min/1.73m??? Low >=60 [facility] Comment on above: Order Comment: Cesar piper Type: BLOOD SPECIMENOrdering Facility: [facility] Address: [address] [place] [address] Result Comment: Sweta mated Glomerular Filtration Rate [...] Performed By: #### 2 4323-8 ####HAND LABORATORYCLIA [id number] [address] [place] Glucose [Mass/Vol] 95 mg/dL Normal 74-99 [facility] Comment on above: Order Comment: Holachristiano piper Type: BLOOD SPECIMENOrdering Facility: [facility] Address: [address] [place] [address] Result Comment: The [place] [employer] (ADA) provides guidance for cutoff [...] Standards of Medical Care in Diabetes 2016, [place] [employer]. Diabetes Care. 2016.39(Suppl 1). Performed By: #### 2 4323-8 ####HAND LABORATORYCLIA [id number] [place] [address] [place] Potassium [Moles/Vol] 3.5 mmol/L Low 3.7-5.1 [facility] Comment on above: Order Comment: Speci men Type: BLOOD SPECIMENOrdering Facility: [facility] Address: [address] [place] [address] Performed By: #### 2 4323-8 ####HAND LABORATORYCLIA [id number] [place] [address] [place] Protein [Mass/Vol] 6.2 g/dL Low 6.3-8.0 [facility] Comment on above: Order Comment: Speci men Type: BLOOD SPECIMENOrdering Facility: [facility] Address: [address] [place] [address] Performed By: #### 2 4323-8 ####HAND LABORATORYCLIA [id number] [place] [address] [place] Sodium [Moles/Vol] 144 mmol/L Normal 136-144 [facility] Comment on above: Order Comment: Speci men Type: BLOOD SPECIMENOrdering Facility: [facility] Address: [address] [place] [address] Performed By: #### 2 4323-8 ####HAND LABORATORYCLIA [id number] [place] [address] [place] Urea nitrogen [Mass/Vol] 7 mg/dL Normal 7-21 [facility] Comment on above: Order Comment: Speci men Type: BLOOD SPECIMENOrdering Facility: [facility] Address: [address] [place] [address] Performed By: #### 2 4323-8 ####[facility] LABORATORYCLIA [id number] [place] [address] [place] NURSING PROGon 12-25-2023 NURSING PROG [facility] PT EDon 12-25-2023 PT ED Normal [facility] CASE MANAGEMon 12-24-2023 CASE MANAGEM Normal [facility] CBC panel Auto (Bld)on 12-23 Erythrocyte distribution width (RBC) [Ratio] 12.9 % Normal 11.5-15.0 [facility] Comment on above: Order Comment: Speci men Type: BLOOD SPECIMENOrdering Facility: [facility] Address: [address] [place] [address] Performed By: #### 5 8410-2 ####HAND LABORATORYCLIA [id number] [address] [place] Hematocrit (Bld) [Volume fraction] 29.9 % Low 36.0-46.0 [facility] Comment on above: Order Comment: Speci men Type: BLOOD SPECIMENOrdering Facility: [facility] Address: [address] [place] [address] Performed By: #### 5 8410-2 ####HAND LABORATORYCLIA [id number] [address] [place] Hemoglobin (Bld) [Mass/Vol] 9.3 g/dL Low 11.5-15. 5 [facility] Comment on above: Order Comment: Speci men Type: BLOOD SPECIMENOrdering Facility: [facility] Address: [address] [place] [address] Performed By: #### 5 8410-2 ####HAND LABORATORYCLIA [id number] [address] [place] MCH (RBC) [Entitic mass] 30.3 pg Normal 26.0-34.0 [facility] Comment on above: Order Comment: Speci men Type: BLOOD SPECIMENOrdering Facility: [facility] Address: [address] [place] [address] Performed By: #### 5 8410-2 ####HAND LABORATORYCLIA [id number] [place] [address] [place] MCHC (RBC) [Mass/Vol] 31.1 g/dL Normal 30.5-36.0 [facility] Comment on above: Order Comment: Speci men Type: BLOOD SPECIMENOrdering Facility: [facility] Address: [address] [place] [address] Performed By: #### 5 8410-2 ####HAND LABORATORYCLIA [id number] [place] [address] [place] MCV (RBC) [Entitic vol] 97.4 fL Normal 80.0-100.0 M [facility] Comment on above: Order Comment: Speci men Type: BLOOD SPECIMENOrdering Facility: [facility] Address: [address] [place] [address] Performed By: #### 5 8410-2 ####HAND LABORATORYCLIA [id number] [address] [place] Nucleated RBC (Bld) [#/Vol] 10*3/uL Normal <0.01 [facility] Comment on above: Order Comment: Speci men Type: BLOOD SPECIMENOrdering Facility: [facility] Address: [address] [place] [address] Performed By: #### 5 8410-2 ####HAND LABORATORYCLIA [id number] [address] [place] Platelet mean volume (Bld) [Entitic vol] 8.6 fL Low 9.0-12.7 [facility] Comment on above: Order Comment: Speci men Type: BLOOD SPECIMENOrdering Facility: [facility] Address: [address] [place] [address] Performed By: #### 5 8410-2 ####HAND LABORATORYCLIA [id number] [address] [place] Platelets (Bld) [#/Vol] 325 10*3/uL Normal 150-400 [facility] Comment on above: Order Comment: Speci men Type: BLOOD SPECIMENOrdering Facility: [facility] Address: [address] [place] [address] Performed By: #### 5 8410-2 ####HAND LABORATORYCLIA [id number] [address] [place] RBC (Bld) [#/Vol] 3.07 10*6/uL Low 3.90-5.20 [facility] Comment on above: Order Comment: Speci men Type: BLOOD SPECIMENOrdering Facility: [facility] Address: [address] [place] [address] Performed By: #### 5 8410-2 ####HAND LABORATORYCLIA [id number] [address] WBC (Bld) [#/Vol] 8.68 10*3/uL Normal 3.70-11.00 [facility] Comment on above: Order Comment: Speci men Type: BLOOD SPECIMENOrdering Facility: [facility] Address: [address] [place] [address] Performed By: #### 5 8410-2 ####HAND LABORATORYCLIA [id number] [address] CONSULT PROGon 12-24-2023 CONSULT PRO Normal [facility] CONSULT PROG Normal [facility] CONSULT PRO Normal [facility] Comprehensive metabolic 2000 panelon 12-24-2023 Albumin [Mass/Vol] 3.1 g/dL Low 3.9-4.9 [facility] Comment on above: Order Comment: Speci men Type: BLOOD SPECIMENOrdering Facility: [facility] Address: [address] [place] [address] Performed By: #### 2 4323-8 ####HAND LABORATORYCLIA [id number] [address] [place] ALP [Catalytic activity/Vol] 152 U/L High 34-123 [facility] Comment on above: Order Comment: Speci men Type: BLOOD SPECIMENOrdering Facility: [facility] Address: [address] [place], [place] [address] [address] Performed By: #### 2 4323-8 ####HAND LABORATORYCLIA [id number] [place] [address] [place] ALT [Catalytic activity/Vol] 5 U/L Low 7-38 [facility] Comment on above: Order Comment: Speci men Type: BLOOD SPECIMENOrdering Facility: [facility] Address: [address] [place] [address] Performed By: #### 2 4323-8 ####HAND LABORATORYCLIA [id number] [place] [address] [place] Anion gap [Moles/Vol] 6 mmol/L Low 9-18 [facility] Comment on above: Order Comment: Speci men Type: BLOOD SPECIMENOrdering Facility: [facility] Address: [address] [place] [address] Performed By: #### 2 4323-8 ####HAND LABORATORYCLIA [id number] [address] AST [Catalytic activity/Vol] 9 U/L Low 13-35 [facility] Comment on above: Order Comment: Speci men Type: BLOOD SPECIMENOrdering Facility: [facility] Address: [address] [place] [address] Performed By: #### 2 4323-8 ####HAND LABORATORYCLIA [id number] [address] [place] Bilirubin [Mass/Vol] 0.2 mg/dL Normal 0.2-1.3 [facility] Comment on above: Order Comment: Speci men Type: BLOOD SPECIMENOrdering Facility: [facility] Address: [address] [place] [address] Performed By: #### 2 4323-8 ####HAND LABORATORYCLIA [id number] [address] STATES OF [facility] Calcium [Mass/Vol] 9.0 mg/dL Normal 8.5-10.2 [facility] Comment on above: Order Comment: Speci men Type: BLOOD SPECIMENOrdering Facility: [facility] Address: [address] [place] [address] Performed By: #### 2 4323-8 ####HAND LABORATORYCLIA [id number] [place] [address] [place] [facility] [place] Chloride [Moles/Vol] 108 mmol/L High 97-105 [facility] Comment on above: Order Comment: Speci men Type: BLOOD SPECIMENOrdering Facility: [facility] Address: [address] [place] [address] Performed By: #### 2 4323-8 ####HAND LABORATORYCLIA [id number] [place] [address] [place] CO2 [Moles/Vol] 31 mmol/L High 22-30 [facility] Comment on above: Order Comment: Speci men Type: BLOOD SPECIMENOrdering Facility: [facility] Address: [address] [place] [address] Performed By: #### 2 4323-8 ####HAND LABORATORYCLIA [id number] [place] [address] [place] Creatinine [Mass/Vol] 1.12 mg/dL High 0.58-0.96 [facility] Comment on above: Order Comment: Speci men Type: BLOOD SPECIMENOrdering Facility: [facility] Address: [address] [place] [address] Performed By: #### 2 4323-8 ####HAND LABORATORYCLIA [id number] [address] [place] Creatinine and Glomerular filtration rate.predicted panel (S/P/Bld) 54 mL/min/1.73m??? Low >=60 [facility] Comment on above: Order Comment: Cesar feliz Type: BLOOD SPECIMENOrdering Facility: [facility] Address: [address] [place] [address] Result Comment: Sweta mated Glomerular Filtration Rate [...] Performed By: #### 2 4323-8 ####HAND LABORATORYCLIA [id number] [place] [address] [place] Glucose [Mass/Vol] 108 mg/dL High 74-99 [facility] Comment on above: Order Comment: Cesar piper Type: BLOOD SPECIMENOrdering Facility: [facility] Address: [address] [place] [address] Result Comment: The [place] Diabetes [employer] (ADA) provides guidance for cutoff [...] Standards of Medical Care in Diabetes 2016, [place] [employer]. Diabetes Care. 2016.39(Suppl 1). Performed By: #### 2 4323-8 ####[facility] LABORATORYCLIA [id number] [place] [address] [place] Potassium [Moles/Vol] 4.0 mmol/L Normal 3.7-5.1 [facility] Comment on above: Order Comment: Cesar [facility] Type: BLOOD SPECIMENOrdering Facility: [facility] Address: [address] [place] [address] Performed By: #### 2 4323-8 ####[facility] LABORATORYCLIA [id number] [place] [address] [place] Protein [Mass/Vol] 6.0 g/dL Low 6.3-8.0 [facility] Comment on above: Order Comment: Cesar piper Type: BLOOD SPECIMENOrdering Facility: [facility] Address: [address] [place] [address] Performed By: #### 2 4323-8 ####AH[facility] LABORATORYCLIA [id number] [place] [address] [place] Sodium [Moles/Vol] 145 mmol/L High 136-144 [facility] Comment on above: Order Comment: Cesar feliz Type: BLOOD SPECIMENOrdering Facility: [facility] Address: [address] [place] [address] Performed By: #### 2 4323-8 ####HAND LABORATORYCLIA [id number] [place] [address] [place] Urea nitrogen [Mass/Vol] 8 mg/dL Normal 7-21 [facility] Comment on above: Order Comment: Speci men Type: BLOOD SPECIMENOrdering Facility: [facility] Address: [address] [place] [address] Performed By: #### 2 4323-8 ####HAND LABORATORYCLIA [id number] [place] [address] [place] ALLIED HEALTHon 12-23-2023 ALLIED HEALTH Normal [facility] CASE MANAGEMon 12-23-2023 CASE MANAGEM Normal [facility] CASE MANAGEM Normal [facility] CASE MANAGEM Normal [facility] CBC panel Auto (Bld)on 12-22 Erythrocyte distribution width (RBC) [Ratio] 13.1 % Normal 11.5-15.0 [facility] Comment on above: Order Comment: Speci men Type: BLOOD SPECIMENOrdering Facility: [facility] Address: [address] [place] [address] Performed By: #### 5 8410-2 ####HAND LABORATORYCLIA [id number] [address] [place] Hematocrit (Bld) [Volume fraction] 29.9 % Low 36.0-46.0 [facility] Comment on above: Order Comment: Speci men Type: BLOOD SPECIMENOrdering Facility: [facility] Address: [address] [place] [address] Performed By: #### 5 8410-2 ####HAND LABORATORYCLIA [id number] [place] [address] [place] Hemoglobin (Bld) [Mass/Vol] 9.3 g/dL Low 11.5-15. 5 [facility] Comment on above: Order Comment: Speci men Type: BLOOD SPECIMENOrdering Facility: [facility] Address: [address] [place] [address] Performed By: #### 5 8410-2 ####HAND LABORATORYCLIA [id number] [place] [address] [place] MCH (RBC) [Entitic mass] 29.7 pg Normal 26.0-34.0 [facility] Comment on above: Order Comment: Speci men Type: BLOOD SPECIMENOrdering Facility: [facility] Address: [address] [place] [address] Performed By: #### 5 8410-2 ####HAND LABORATORYCLIA [id number] [address] [place] MCHC (RBC) [Mass/Vol] 31.1 g/dL Normal 30.5-36.0 [facility] Comment on above: Order Comment: Speci men Type: BLOOD SPECIMENOrdering Facility: [facility] Address: [address] [place] [address] Performed By: #### 5 8410-2 ####HAND LABORATORYCLIA [id number] [address] [place] MCV (RBC) [Entitic vol] 95.5 fL Normal 80.0-100.0 [facility] Comment on above: Order Comment: Speci men Type: BLOOD SPECIMENOrdering Facility: [facility] Address: [address] [place] [address] Performed By: #### 5 8410-2 ####HAND LABORATORYCLIA [id number] [address] [place] Nucleated RBC (Bld) [#/Vol] 10*3/uL Normal <0.01 [facility] Comment on above: Order Comment: Speci men Type: BLOOD SPECIMENOrdering Facility: [facility] Address: [address] [place] [address] Performed By: #### 5 8410-2 ####HAND LABORATORYCLIA [id number] [address] [place] Platelet mean volume (Bld) [Entitic vol] 9.1 fL Normal 9.0-12.7 [facility] Comment on above: Order Comment: Speci men Type: BLOOD SPECIMENOrdering Facility: [facility] Address: [address] [place] [address] Performed By: #### 5 8410-2 ####HAND LABORATORYCLIA [id number] [place] [address] [place] [facility] [place] Platelets (Bld) [#/Vol] 355 10*3/uL Normal 150-400 [facility] Comment on above: Order Comment: Speci men Type: BLOOD SPECIMENOrdering Facility: [facility] Address: [address] [place] [address] Performed By: #### 5 8410-2 ####HAND LABORATORYCLIA [id number] [place] [address] [place] RBC (Bld) [#/Vol] 3.13 10*6/uL Low 3.90-5.20 [facility] Comment on above: Order Comment: Speci men Type: BLOOD SPECIMENOrdering Facility: [facility] Address: [address] [place] [address] Performed By: #### 5 8410-2 ####HAND LABORATORYCLIA [id number] [place] [address] [place] WBC (Bld) [#/Vol] 10.78 10*3/uL Normal 3.70-11.00 [facility] Comment on above: Order Comment: Speci men Type: BLOOD SPECIMENOrdering Facility: [facility] Address: [address] [place] [address] Performed By: #### 5 8410-2 ####HAND LABORATORYCLIA [id number] [address] [place] CK TOTAL AND CK-MBon 024 CK [Catalytic activity/Vol] 9 U/L Low 42-196 [facility] Comment on above: Order Comment: Speci men Type: BLOOD SPECIMENOrdering Facility: [facility] Address: [address] [place] [address] Performed By: #### C KCKMB, 55108-4, HSTNT, 08630-7 ####HAND LABORATORYCLIA [id number] [address] CK.MB [Mass/Vol] ng/mL Normal <4.4 [facility] Comment on above: Order Comment: Speci men Type: BLOOD SPECIMENOrdering Facility: [facility] Address: [address] [place], [place] [address] Performed By: #### C KAVYAB, 41248-1, HSTNT, 91056-6 ####HAND LABORATORYCLIA [id number] [address] CK.MB [Ratio] Normal [facility] Comment on above: Order Comment: Speci men Type: BLOOD SPECIMENOrdering Facility: [facility] Address: [address] [place] [address] Result Comment: CK M B % not reported with CK <100 U/L. Performed By: #### C KAVYAB, 99253-1, HSTNT, 67948-7 ####HAND LABORATORYCLIA [id number] [address] [place] CONSULT PROGon 12-23-2023 CONSULT PRO Normal [facility] CONSULT PROG [facility] 2000 panelon 12-23-2023 Albumin [Mass/Vol] 3.1 g/dL Low 3.9-4.9 [facility] Comment on above: Order Comment: Speci men Type: BLOOD SPECIMENOrdering Facility: [facility] Address: [address] [place] [address] Performed By: #### C MARIA DEL CARMEN, 70797-5, HSTNT, 60155-8 ####HAND LABORATORYCLIA [id number] [address] [place] ALP [Catalytic activity/Vol] 164 U/L High 34-123 [facility] Comment on above: Order Comment: Speci men Type: BLOOD SPECIMENOrdering Facility: [facility] Address: [address] [place] [address] Performed By: #### C KAVYAB, 02849-4, HSTNT, 66744-5 ####HAND LABORATORYCLIA [id number] [address] ALT [Catalytic activity/Vol] 5 U/L Low 7-38 [facility] Comment on above: Order Comment: Speci men Type: BLOOD SPECIMENOrdering Facility: [facility] Address: [address] [place] [address] Performed By: #### C KAVYAB, 50708-4, HSTNT, 76568-1 ####HAND LABORATORYCLIA [id number] [place] [address] [place] Anion gap [Moles/Vol] 7 mmol/L Low 9-18 [facility] Comment on above: Order Comment: Speci men Type: BLOOD SPECIMENOrdering Facility: [facility] Address: [address] [place] [address] Performed By: #### C KAVYAB, 95734-5, HSTNT, 57441-5 ####HAND LABORATORYCLIA [id number] [place] [address] [place] AST [Catalytic activity/Vol] 7 U/L Low 13-35 [facility] Comment on above: Order Comment: Speci men Type: BLOOD SPECIMENOrdering Facility: [facility] Address: [address] [place] [address] Performed By: #### C KAVYAB, 67315-3, HSTNT, 52153-5 ####HAND LABORATORYCLIA [id number] [place] [address] [place] Bilirubin [Mass/Vol] 0.4 mg/dL Normal 0.2-1.3 [facility] Comment on above: Order Comment: Speci men Type: BLOOD SPECIMENOrdering Facility: [facility] Address: [address] [place] [address] Performed By: #### C KAVYAB, 96815-0, HSTNT, 83539-1 ####HAND LABORATORYCLIA [id number] [place] [address] [place] Calcium [Mass/Vol] 8.6 mg/dL Normal 8.5-10.2 [facility] Comment on above: Order Comment: Speci men Type: BLOOD SPECIMENOrdering Facility: [facility] Address: [address] [place] [address] Performed By: #### C KAVYAB, 99184-5, HSTNT, 41479-2 ####HAND LABORATORYCLIA [id number] [place] [address] [place] Chloride [Moles/Vol] 104 mmol/L Normal 97-105 [facility] Comment on above: Order Comment: Cesar piper Type: BLOOD SPECIMENOrdering Facility: [facility] Address: [address] [place] [address] Performed By: #### C MARIA DEL CARMEN, 33815-7, HSTNT, 72145-1 ####[facility] LABORATORYCLIA [id number] [place] [address] [place] CO2 [Moles/Vol] 31 mmol/L High 22-30 [facility] Comment on above: Order Comment: Cesar piper Type: BLOOD SPECIMENOrdering Facility: [facility] Address: [address] [place] [address] Performed By: #### Gigi JOYCE, 12759-6, HSTNT, 65640-1 ####[facility] LABORATORYCLIA [id number] [place] [address] [place] Creatinine [Mass/Vol] 1.11 mg/dL High 0.58-0.96 [facility] Comment on above: Order Comment: Cesar piper Type: BLOOD SPECIMENOrdering Facility: [facility] Address: [address] [place] [address] Performed By: #### Gigi JOYCE, 68312-8, HSTNT, 52773-0 ####[facility] LABORATORYCLIA [id number] [address] Creatinine and Glomerular filtration rate.predicted panel (S/P/Bld) 55 mL/min/1.73m??? Low >=60 [facility] Comment on above: Order Comment: Cesar piper Type: BLOOD SPECIMENOrdering Facility: [facility] Address: [address] [place] [address] Result Comment: Sweta mated Glomerular Filtration Rate [...] reflect actual GFR. Performed By: #### C MARIA DEL CARMEN, 16182-1, HSTNT, 26866-8 ####[facility] LABORATORYCLIA [id number] [place] [address] [place] Glucose [Mass/Vol] 114 mg/dL High 74-99 [facility] Comment on above: Order Comment: Speci men Type: BLOOD SPECIMENOrdering Facility: [facility] Address: [address] [place] [address] Result Comment: The [place] [employer] (ADA) provides guidance for cutoff [...] Standards of Medical Care in Diabetes 2016, [place] [employer]. Diabetes Care. 2016.39(Suppl 1). Performed By: #### C KAVYAB, 94127-9, HSTNT, 81339-1 ####[facility] LABORATORYCLIA [id number] [place] [address] [place] Potassium [Moles/Vol] 3.6 mmol/L Low 3.7-5.1 [facility] Comment on above: Order Comment: Speci men Type: BLOOD SPECIMENOrdering Facility: [facility] Address: [address] [place] [address] Performed By: #### C KCKMB, 94219-1, HSTNT, 91643-7 ####[facility] LABORATORYCLIA [id number] [place] [address] [place] Protein [Mass/Vol] 6.0 g/dL Low 6.3-8.0 [facility] Comment on above: Order Comment: Speci men Type: BLOOD SPECIMENOrdering Facility: [facility] Address: [address] [place] [address] Performed By: #### C KCKMB, 55689-8, HSTNT, 23626-5 ####HAND LABORATORYCLIA [id number] [place] [address] [place] Sodium [Moles/Vol] 142 mmol/L Normal 136-144 [facility] Comment on above: Order Comment: Cesar piper Type: BLOOD SPECIMENOrdering Facility: [facility] Address: [address] [place] [address] Performed By: #### C KCKMB, 35245-1, HSTNT, 21478-2 ####HAND LABORATORYCLIA [id number] [place] [address] [place] Urea nitrogen [Mass/Vol] 7 mg/dL Normal 7-21 [facility] Comment on above: Order Comment: Cesar piper Type: BLOOD SPECIMENOrdering Facility: [facility] Address: [address] [place] [address] Performed By: #### C KCKMB, 30455-4, HSTNT, 71164-2 ####HAND LABORATORYCLIA [id number] [address] HIGH SENSITIVITY TROPONIN To n 12-23-2023 Troponin T.cardiac High sensitivity method [Mass/Vol] 18 ng/L High <12 [facility] Comment on above: Order Comment: Cesar piper Type: BLOOD SPECIMENOrdering Facility: [facility] Address: [address] [place] [address] Result Comment: When assessing risk for acute [...] day MACE. Performed By: #### C KCKMB, 67232-0, HSTNT, 65415-7 ####HAND LABORATORYCLIA [id number] [place] [address] [place] NT[facility] Natriuretic peptide.B prohormone N-Terminal [Mass/Vol] 2380 pg/mL High <125 [facility] Comment on above: Order Comment: Speci men Type: BLOOD SPECIMENOrdering Facility: [facility] Address: [address] [place] [address] Performed By: #### C KCKMB, 84768-4, HSTNT, 14152-8 ####HAND LABORATORYCLIA [id number] [place] [address] [place] NURSING PROGon 12-23-2023 NURSING PROG Normal [facility] THERAPY NTon 12-23-2023 THERAPY NT Normal [facility] THERAPY NT Normal [facility] THERAPY NT Normal [facility] XR CHEST 2V FRONTAL/LATon XR CHEST 2V FRONTAL/LAT Normal M [facility] CASE MANAGEMon 12-22-2023 CASE MANAGEM Normal [facility] CASE MANAGEM [facility] CBC panel Auto (Bld)on 12-21 Erythrocyte distribution width (RBC) [Ratio] 12.9 % Normal 11.5-15.0 [facility] Comment on above: Order Comment: Speci men Type: BLOOD SPECIMENOrdering Facility: [facility] Address: [address] [place] [address] Performed By: #### 5 8410-2 ####HAND LABORATORYCLIA [id number] [place] [address] [place] Hematocrit (Bld) [Volume fraction] 32.2 % Low 36.0-46.0 [facility] Comment on above: Order Comment: Speci men Type: BLOOD SPECIMENOrdering Facility: [facility] Address: [address] [place] [address] Performed By: #### 5 8410-2 ####HAND LABORATORYCLIA [id number] [place] [address] [place] Hemoglobin (Bld) [Mass/Vol] 9.7 g/dL Low 11.5-15. 5 [facility] Comment on above: Order Comment: Speci men Type: BLOOD SPECIMENOrdering Facility: [facility] Address: [address] [place] [address] Performed By: #### 5 8410-2 ####HAND LABORATORYCLIA [id number] [place] [address] [place] MCH (RBC) [Entitic mass] 28.9 pg Normal 26.0-34.0 [facility] Comment on above: Order Comment: Speci men Type: BLOOD SPECIMENOrdering Facility: [facility] Address: [address] [place] [address] Performed By: #### 5 8410-2 ####HAND LABORATORYCLIA [id number] [address] MCHC (RBC) [Mass/Vol] 30.1 g/dL Low 30.5-36.0 [facility] Comment on above: Order Comment: Speci men Type: BLOOD SPECIMENOrdering Facility: [facility] Address: [address] [place] [address] Performed By: #### 5 8410-2 ####HAND LABORATORYCLIA [id number] [address] MCV (RBC) [Entitic vol] 95.8 fL Normal 80.0-100.0 [facility] Comment on above: Order Comment: Speci men Type: BLOOD SPECIMENOrdering Facility: [facility] Address: [address] [place] [address] Performed By: #### 5 8410-2 ####HAND LABORATORYCLIA [id number] [address] Nucleated RBC (Bld) [#/Vol] 10*3/uL Normal <0.01 [facility] Comment on above: Order Comment: Speci men Type: BLOOD SPECIMENOrdering Facility: [facility] Address: [address] [place] [address] Performed By: #### 5 8410-2 ####HAND LABORATORYCLIA [id number] [address] Platelet mean volume (Bld) [Entitic vol] 9.2 fL Normal 9.0-12.7 [facility] Comment on above: Order Comment: Speci men Type: BLOOD SPECIMENOrdering Facility: [facility] Address: [address] [place] [address] Performed By: #### 5 8410-2 ####HAND LABORATORYCLIA [id number] [address] Platelets (Bld) [#/Vol] 357 10*3/uL Normal 150-400 [facility] Comment on above: Order Comment: Speci men Type: BLOOD SPECIMENOrdering Facility: [facility] Address: [address] [place] [address] Performed By: #### 5 8410-2 ####[facility] LABORATORYCLIA [id number] [place] [address] [place] RBC (Bld) [#/Vol] 3.36 10*6/uL Low 3.90-5.20 [facility] Comment on above: Order Comment: Speci men Type: BLOOD SPECIMENOrdering Facility: [facility] Address: [address] [place] [address] Performed By: #### 5 8410-2 ####[facility] LABORATORYCLIA [id number] [address] WBC (Bld) [#/Vol] 11.82 10*3/uL High 3.70-11.00 [facility] Comment on above: Order Comment: Speci men Type: BLOOD SPECIMENOrdering Facility: [facility] Address: [address] [place] [address] Performed By: #### 5 8410-2 ####[facility] LABORATORYCLIA [id number] [address] CONSULT PROGon 12-22-2023 CONSULT PROG Normal [facility] CONSULT PROG Normal [facility] CONSULT PROG Normal [facility] CONSULT PRO Normal [facility] Comprehensive metabolic 2000 panelon 12-22-2023 Albumin [Mass/Vol] 3.0 g/dL Low 3.9-4.9 [facility] Comment on above: Order Comment: Speci men Type: BLOOD SPECIMENOrdering Facility: [facility] Address: [address] [place] [address] Performed By: #### 2 4323-8, HSTNT ####[facility] LABORATORYCLIA [id number] [address] [place] ALP [Catalytic activity/Vol] 178 U/L High 34-123 [facility] Comment on above: Order Comment: Speci men Type: BLOOD SPECIMENOrdering Facility: [facility] Address: [address] [place] [address] Performed By: #### 2 4323-8, HSTNT ####HAND LABORATORYCLIA [id number] [address] [place] ALT [Catalytic activity/Vol] 7 U/L Normal 7-38 [facility] Comment on above: Order Comment: Speci men Type: BLOOD SPECIMENOrdering Facility: [facility] Address: [address] [place] [address] Performed By: #### 2 4323-8, HSTNT ####HAND LABORATORYCLIA [id number] [address] Anion gap [Moles/Vol] 11 mmol/L Normal 9-18 [facility] Comment on above: Order Comment: Speci men Type: BLOOD SPECIMENOrdering Facility: [facility] Address: [address] [place] [address] Performed By: #### 2 4323-8, HSTNT ####HAND LABORATORYCLIA [id number] [address] AST [Catalytic activity/Vol] 9 U/L Low 13-35 [facility] Comment on above: Order Comment: Speci men Type: BLOOD SPECIMENOrdering Facility: [facility] Address: [address] [place] [address] Performed By: #### 2 4323-8, HSTNT ####HAND LABORATORYCLIA [id number] [address] [place] Bilirubin [Mass/Vol] 0.3 mg/dL Normal 0.2-1.3 [facility] Comment on above: Order Comment: Speci men Type: BLOOD SPECIMENOrdering Facility: [facility] Address: [address] [place] [address] Performed By: #### 2 4323-8, HSTNT ####HAND LABORATORYCLIA [id number] [address] [place] Calcium [Mass/Vol] 8.8 mg/dL Normal 8.5-10.2 [facility] Comment on above: Order Comment: Speci men Type: BLOOD SPECIMENOrdering Facility: [facility] Address: [address] [place] [address] Performed By: #### 2 4323-8, HSTNT ####HAND LABORATORYCLIA [id number] [place] [address] [place] Chloride [Moles/Vol] 103 mmol/L Normal 97-105 [facility] Comment on above: Order Comment: Speci men Type: BLOOD SPECIMENOrdering Facility: [facility] Address: [address] [place] [address] Performed By: #### 2 4323-8, HSTNT ####HAND LABORATORYCLIA [id number] [place] [address] [place] CO2 [Moles/Vol] 28 mmol/L Normal 22-30 [facility] Comment on above: Order Comment: Speci men Type: BLOOD SPECIMENOrdering Facility: [facility] Address: [address] [place] [address] Performed By: #### 2 4323-8, HSTNT ####HAND LABORATORYCLIA [id number] [place] [address] [place] Creatinine [Mass/Vol] 0.87 mg/dL Normal 0.58-0.96 [facility] Comment on above: Order Comment: Speci men Type: BLOOD SPECIMENOrdering Facility: [facility] Address: [address] [place] [address] Performed By: #### 2 4323-8, HSTNT ####HAND LABORATORYCLIA [id number] [place] [address] [place] Creatinine and Glomerular filtration rate.predicted panel (S/P/Bld) 73 mL/min/1.73m??? Normal >=60 [facility] Comment on above: Order Comment: Speci men Type: BLOOD SPECIMENOrdering Facility: [facility] Address: [address] [place] [address] Result Comment: Sweta mated Glomerular Filtration Rate (eGFR) is calculated using the 2021 CKD-EPI creatinine equation. This equation utilizes serum creatinine, sex, and age as parameters. The creatinine assay has traceable calibration to isotope dilution-mass spectrometry. Refer to KDIGO guidelines for clinical interpretation. In patients with unstable renal function, e.g. those with acute kidney injury, the eGFR may not accurately reflect actual GFR. Performed By: #### 2 4323-8, HSTNT ####[facility] LABORATORYCLIA [id number] [place] [address] [place] Glucose [Mass/Vol] 97 mg/dL Normal 74-99 [facility] Comment on above: Order Comment: Holai men Type: BLOOD SPECIMENOrdering Facility: [facility] Address: [address] [place] [address] Result Comment: The [place] Diabetes [employer] (ADA) provides guidance for cutoff [...] Standards of Medical Care in Diabetes 2016, [place] [employer]. Diabetes Care. 2016.39(Suppl 1). Performed By: #### 2 4323-8, HSTNT ####HAND LABORATORYCLIA [id number] [place] [id number] [place] Potassium [Moles/Vol] 3.8 mmol/L Normal 3.7-5.1 [facility] Comment on above: Order Comment: Cesar [facility] Type: BLOOD SPECIMENOrdering Facility: [facility] Address: [address] [place] [id number] Performed By: #### 2 4323-8, HSTNT ####HAND LABORATORYCLIA [id number] [place] [address] [place] Protein [Mass/Vol] 6.2 g/dL Low 6.3-8.0 [facility] Comment on above: Order Comment: Speci men Type: BLOOD SPECIMENOrdering Facility: [facility] Address: [address] [place] [address] Performed By: #### 2 4323-8, HSTNT ####HAND LABORATORYCLIA [id number] [place] [address] [place] Sodium [Moles/Vol] 142 mmol/L Normal 136-144 [facility] Comment on above: Order Comment: Speci men Type: BLOOD SPECIMENOrdering Facility: [facility] Address: [address] [place] [address] Performed By: #### 2 4323-8, HSTNT ####HAND LABORATORYCLIA [id number] [address] [place] Urea nitrogen [Mass/Vol] 8 mg/dL Normal 7-21 [facility] Comment on above: Order Comment: Speci men Type: BLOOD SPECIMENOrdering Facility: [facility] Address: [address] [place] [address] Performed By: #### 2 4323-8, HSTNT ####HAND LABORATORYCLIA [id number] [address] [place] HIGH SENSITIVITY TROPONIN To n 12-22-2023 Troponin T.cardiac High sensitivity method [Mass/Vol] 24 ng/L High <12 [facility] Comment on above: Order Comment: Speci men Type: BLOOD SPECIMENOrdering Facility: [facility] Address: [address] [place] [address] Result Comment: When assessing risk for acute [...] By: #### 2 4323-8, HSTNT ####HAND LABORATORYCLIA [id number] [place] [address] [place] NURSING PROGon 12-22-2023 NURSING PROG Normal [facility] Vancomycin [place] SerPl-mCncon 04-16-2024 Vancomycin random [Mass/Vol] 19.3 ug/mL Normal 10.0-20.0 [facility] Comment on above: Order Comment: Speci men Type: BLOOD SPECIMENOrdering Facility: [facility] Address: [address] [place] [address] Result Comment: Refe rence ranges and high/low indicator flags are provided as general guidelines only. The treating physician must determine appropriate target levels/dosing based on the specific clinical situation. Performed By: #### 4 091-5 ####HAND LABORATORYCLIA [id number] [address] [place] CBC panel Auto (Bld)on 12-20 Erythrocyte distribution width (RBC) [Ratio] 12.6 % Normal 11.5-15.0 [facility] Comment on above: Order Comment: Speci men Type: BLOOD SPECIMENOrdering Facility: [facility] Address: [address] [place] [address] Performed By: #### 5 8410-2 ####HAND LABORATORYCLIA [id number] [address] [place] Hematocrit (Bld) [Volume fraction] 30.5 % Low 36.0-46.0 [facility] Comment on above: Order Comment: Speci men Type: BLOOD SPECIMENOrdering Facility: [facility] Address: [address] [place] [address] Performed By: #### 5 8410-2 ####HAND LABORATORYCLIA [id number] [address] [place] Hemoglobin (Bld) [Mass/Vol] 9.4 g/dL Low 11.5-15. 5 [facility] Comment on above: Order Comment: Speci men Type: BLOOD SPECIMENOrdering Facility: [facility] Address: [address] [place] [address] Performed By: #### 5 8410-2 ####HAND LABORATORYCLIA [id number] [address] [place] MCH (RBC) [Entitic mass] 29.7 pg Normal 26.0-34.0 [facility] Comment on above: Order Comment: Speci men Type: BLOOD SPECIMENOrdering Facility: [facility] Address: [address] [place] [address] Performed By: #### 5 8410-2 ####HAND LABORATORYCLIA [id number] [address] MCHC (RBC) [Mass/Vol] 30.8 g/dL Normal 30.5-36.0 [facility] Comment on above: Order Comment: Speci men Type: BLOOD SPECIMENOrdering Facility: [facility] Address: [address] [place] [address] Performed By: #### 5 8410-2 ####HAND LABORATORYCLIA [id number] [address] MCV (RBC) [Entitic vol] 96.2 fL Normal 80.0-100.0 [facility] Comment on above: Order Comment: Speci men Type: BLOOD SPECIMENOrdering Facility: [facility] Address: [address] [place] [address] Performed By: #### 5 8410-2 ####HAND LABORATORYCLIA [id number] [address] Nucleated RBC (Bld) [#/Vol] 10*3/uL Normal <0.01 [facility] Comment on above: Order Comment: Speci men Type: BLOOD SPECIMENOrdering Facility: [facility] Address: [address] [place] [address] Performed By: #### 5 8410-2 ####HAND LABORATORYCLIA [id number] [address] [place] Platelet mean volume (Bld) [Entitic vol] 9.4 fL Normal 9.0-12.7 [facility] Comment on above: Order Comment: Speci men Type: BLOOD SPECIMENOrdering Facility: [facility] Address: [address] [place] [address] Performed By: #### 5 8410-2 ####HAND LABORATORYCLIA [id number] [address] [place] Platelets (Bld) [#/Vol] 304 10*3/uL Normal 150-400 [facility] Comment on above: Order Comment: Speci men Type: BLOOD SPECIMENOrdering Facility: [facility] Address: [address] [place] [address] Performed By: #### 5 8410-2 ####HAND LABORATORYCLIA [id number] [address] [place] RBC (Bld) [#/Vol] 3.17 10*6/uL Low 3.90-5.20 [facility] Comment on above: Order Comment: Speci men Type: BLOOD SPECIMENOrdering Facility: [facility] Address: [address] [place] [address] Performed By: #### 5 8410-2 ####[facility] LABORATORYCLIA [id number] [address] OF [facility] WBC (Bld) [#/Vol] 10.31 10*3/uL Normal 3.70-11.00 [facility] Comment on above: Order Comment: Speci men Type: BLOOD SPECIMENOrdering Facility: [facility] Address: [address] [place] [address] Performed By: #### 5 8410-2 ####HAND LABORATORYCLIA [id number] [address] CK TOTAL AND CK-MBon 024 CK [Catalytic activity/Vol] 12 U/L Low 42-196 [facility] Comment on above: Order Comment: Speci men Type: BLOOD SPECIMENOrdering Facility: [facility] Address: [address] [place] [address] Performed By: #### H STNT, CKCKMB ####HAND LABORATORYCLIA [id number] [address] CK.MB [Mass/Vol] 1.5 ng/mL Normal <4.4 [facility] Comment on above: Order Comment: Speci men Type: BLOOD SPECIMENOrdering Facility: [facility] Address: [address] [place] [address] Performed By: #### H STNT, CKCKMB ####HAND LABORATORYCLIA [id number] [address] [place] CK.MB [Ratio] Normal [facility] Comment on above: Order Comment: Speci men Type: BLOOD SPECIMENOrdering Facility: [facility] Address: [address] [place] [address] Result Comment: CK M B % not reported with CK <100 U/L. Performed By: #### H STNT, CKCKMB ####HAND LABORATORYCLIA [id number] [address] [place] CONSULT PROGon 12-21-2023 CONSULT PRO Normal [facility] CONSULT [facility] CONSULT PRO Normal [facility] CONSULT [facility] Comprehensive metabolic 2000 panelon 12-21-2023 Albumin [Mass/Vol] 3.0 g/dL Low 3.9-4.9 [facility] Comment on above: Order Comment: Speci men Type: BLOOD SPECIMENOrdering Facility: [facility] Address: [address] [place] [address] Performed By: #### 2 4323-8 ####HAND LABORATORYCLIA [id number] [place] [address] [place] ALP [Catalytic activity/Vol] 179 U/L High 34-123 [facility] Comment on above: Order Comment: Speci men Type: BLOOD SPECIMENOrdering Facility: [facility] Address: [address] [place] [address] Performed By: #### 2 4323-8 ####HAND LABORATORYCLIA [id number] [address] [place] ALT [Catalytic activity/Vol] 8 U/L Normal 7-38 [facility] Comment on above: Order Comment: Speci men Type: BLOOD SPECIMENOrdering Facility: [facility] Address: [address] [place] [address] Performed By: #### 2 4323-8 ####HAND LABORATORYCLIA [id number] [place] [address] [place] Anion gap [Moles/Vol] 6 mmol/L Low 9-18 [facility] Comment on above: Order Comment: Speci men Type: BLOOD SPECIMENOrdering Facility: [facility] Address: [address] [place], [place] [address], [place] [address] Performed By: #### 2 4323-8 ####HAND LABORATORYCLIA [id number] [place] [address] [place] AST [Catalytic activity/Vol] 9 U/L Low 13-35 [facility] Comment on above: Order Comment: Speci men Type: BLOOD SPECIMENOrdering Facility: [facility] Address: [address] [place] [address] [place] [address] Performed By: #### 2 4323-8 ####HAND LABORATORYCLIA [id number] [place] [address] [place] Bilirubin [Mass/Vol] 0.2 mg/dL Normal 0.2-1.3 [facility] Comment on above: Order Comment: Speci men Type: BLOOD SPECIMENOrdering Facility: [facility] Address: [address] [place] [address] Performed By: #### 2 4323-8 ####HAND LABORATORYCLIA [id number] [place] [address] [place] Calcium [Mass/Vol] 8.9 mg/dL Normal 8.5-10.2 [facility] Comment on above: Order Comment: Speci men Type: BLOOD SPECIMENOrdering Facility: [facility] Address: [address] [place] [address] [place] [address] Performed By: #### 2 4323-8 ####HAND LABORATORYCLIA [id number] [place] [address] [place] Chloride [Moles/Vol] 106 mmol/L High 97-105 [facility] Comment on above: Order Comment: Speci men Type: BLOOD SPECIMENOrdering Facility: [facility] Address: [address] [place] [address] Performed By: #### 2 4323-8 ####HAND LABORATORYCLIA [id number] [place] [address] [place] CO2 [Moles/Vol] 31 mmol/L High 22-30 [facility] Comment on above: Order Comment: Speci men Type: BLOOD SPECIMENOrdering Facility: [facility] Address: [address] [place] [address] Performed By: #### 2 4323-8 ####HAND LABORATORYCLIA [id number] [place] [address] [place] Creatinine [Mass/Vol] 0.85 mg/dL Normal 0.58-0.96 [facility] Comment on above: Order Comment: Cesar piper Type: BLOOD SPECIMENOrdering Facility: [facility] Address: [address] [place] [address] Performed By: #### 2 4323-8 ####[facility] LABORATORYCLIA [id number] [place] [id number] [facility] Creatinine and Glomerular filtration rate.predicted panel (S/P/Bld) 75 mL/min/1.73m??? Normal >=60 [facility] Comment on above: Order Comment: Cesar piper Type: BLOOD SPECIMENOrdering Facility: [facility] Address: [address] [place] [address] Result Comment: Sweta mated Glomerular Filtration Rate [...] Performed By: #### 2 4323-8 ####HAND LABORATORYCLIA [id number] [address] [place] Glucose [Mass/Vol] 112 mg/dL High 74-99 [facility] Comment on above: Order Comment: Cesar piper Type: BLOOD SPECIMENOrdering Facility: [facility] Address: [address] [place] [address] Result Comment: The [place] Diabetes Association (ADA) provides guidance for cutoff [...] Standards of Medical Care in Diabetes 2016, [place] [employer]. Diabetes Care. 2016.39(Suppl 1). Performed By: #### 2 4323-8 ####HAND LABORATORYCLIA [id number] [address] [place] Potassium [Moles/Vol] 3.4 mmol/L Low 3.7-5.1 [facility] Comment on above: Order Comment: Speci men Type: BLOOD SPECIMENOrdering Facility: [facility] Address: [address] [place] [address] Performed By: #### 2 4323-8 ####HAND LABORATORYCLIA [id number] [address] STATES [facility] Protein [Mass/Vol] 6.0 g/dL Low 6.3-8.0 [facility] Comment on above: Order Comment: Holai men Type: BLOOD SPECIMENOrdering Facility: [facility] Address: [address] [place] [address] Performed By: #### 2 4323-8 ####HAND LABORATORYCLIA [id number] [address] STATES [facility] Sodium [Moles/Vol] 143 mmol/L Normal 136-144 [facility] Comment on above: Order Comment: Cesar piper Type: BLOOD SPECIMENOrdering Facility: [facility] Address: [address] [place] [address] Performed By: #### 2 4323-8 ####HAND LABORATORYCLIA [id number] [place] [address] [place] Urea nitrogen [Mass/Vol] 14 mg/dL Normal 7-21 [facility] Comment on above: Order Comment: Holai men Type: BLOOD SPECIMENOrdering Facility: [facility] Address: [address] [place] [address] Performed By: #### 2 4323-8 ####HAND LABORATORYCLIA [id number] [place] [address] [place] ECG COMPLETEon 12-21-2023 ECG COMPLETE Normal [facility] HIGH SENSITIVITY TROPONIN To n 12-21-2023 Troponin T.cardiac High sensitivity method [Mass/Vol] 20 ng/L High <12 [facility] Comment on above: Order Comment: Cesar piper Type: BLOOD SPECIMENOrdering Facility: [facility] Address: [address] [place] [address] Result Comment: When assessing risk for acute [...] Performed By: #### H STNT ####HAND LABORATORYCLIA [id number] [address] Troponin T.cardiac High sensitivity method [Mass/Vol] 17 ng/L High <12 [facility] Comment on above: Order Comment: Cesar piper Type: BLOOD SPECIMENOrdering Facility: [facility] Address: [address] [place] [address] Result Comment: When assessing risk for acute [...] Performed By: #### H STNT ####HAND LABORATORYCLIA [id number] [address] [place] Troponin T.cardiac High sensitivity method [Mass/Vol] 17 ng/L High <12 [facility] Comment on above: Order Comment: Cesar piper Type: BLOOD SPECIMENOrdering Facility: [facility] Address: [address] [place] [address] Result Comment: When assessing risk for acute [...] By: #### H STNT, CKCKMB ####HAND LABORATORYCLIA [id number] [address] [place] .GFRon 12-20-2023 GFR 55 ml/min/1.73sqm Normal [facility] [place] Comment on above: Result Comment: GFR Population [...] ADIFF, EUSEBIO, MDW, TROPHS, CMP, GFR #### [address] [address] GFR Non- 45 ml/min/1.73sqm Normal [facility] ([place] Comment on above: Result Comment: GFR Population [...] ADIFF, ANEU, MDW, TROPHS, CMP, GFR #### [address] [address] ALLIED HEALTHon 12-20-2023 ALLIED HEALTH Normal [facility] Bacteria Bld Culton 12-20-19 24 Bacteria identified Cx Nom (Bld) CULTURE, BLOOD: No growth 5 days Normal [facility] Comment on above: Performed By: #### 6 00-7 ####[facility] LABCLIA [id number] [facility] [place]NOTE 2]DESK E99[place] [address] [place] CASE MGT INIT ASSESon 2023 CASE MGT INIT [facility] CBC panel Auto (Bld)on 12-19 Erythrocyte distribution width (RBC) [Ratio] 12.9 % Normal 11.5-15.0 [facility] Comment on above: Order Comment: Speci men Type: BLOOD SPECIMENOrdering Facility: [facility] Address: [address] [place] [address] Performed By: #### 5 8410-2 ####HAND LABORATORYCLIA [id number] [address] [place] Hematocrit (Bld) [Volume fraction] 33.6 % Low 36.0-46.0 [facility] Comment on above: Order Comment: Speci men Type: BLOOD SPECIMENOrdering Facility: [facility] Address: [address] [place] [address] Performed By: #### 5 8410-2 ####HAND LABORATORYCLIA [id number] [place] [address] [place] Hemoglobin (Bld) [Mass/Vol] 10.7 g/dL Low 11.5-15. 5 [facility] Comment on above: Order Comment: Speci men Type: BLOOD SPECIMENOrdering Facility: [facility] Address: [address] [place] [address] Performed By: #### 5 8410-2 ####HAND LABORATORYCLIA [id number] [place] [address] [place] MCH (RBC) [Entitic mass] 30.3 pg Normal 26.0-34.0 [facility] Comment on above: Order Comment: Speci men Type: BLOOD SPECIMENOrdering Facility: [facility] Address: [address] [place] [address] Performed By: #### 5 8410-2 ####HAND LABORATORYCLIA [id number] [address] [place] MCHC (RBC) [Mass/Vol] 31.8 g/dL Normal 30.5-36.0 [facility] Comment on above: Order Comment: Speci men Type: BLOOD SPECIMENOrdering Facility: [facility] Address: [address] [place] [address] Performed By: #### 5 8410-2 ####HAND LABORATORYCLIA [id number] [place] [address] [place] MCV (RBC) [Entitic vol] 95.2 fL Normal 80.0-100.0 [facility] Comment on above: Order Comment: Speci men Type: BLOOD SPECIMENOrdering Facility: [facility] Address: [address] [place] [address] Performed By: #### 5 8410-2 ####HAND LABORATORYCLIA [id number] [place] [address] [place] Nucleated RBC (Bld) [#/Vol] 10*3/uL Normal <0.01 [facility] Comment on above: Order Comment: Speci men Type: BLOOD SPECIMENOrdering Facility: [facility] Address: [address] [place] [address] Performed By: #### 5 8410-2 ####HAND LABORATORYCLIA [id number] [place] [address] [place] Platelet mean volume (Bld) [Entitic vol] 9.3 fL Normal 9.0-12.7 [facility] Comment on above: Order Comment: Speci men Type: BLOOD SPECIMENOrdering Facility: [facility] Address: [address] [place] [address] Performed By: #### 5 8410-2 ####HAND LABORATORYCLIA [id number] [place] [address] [place] Platelets (Bld) [#/Vol] 298 10*3/uL Normal 150-400 [facility] Comment on above: Order Comment: Speci men Type: BLOOD SPECIMENOrdering Facility: [facility] Address: [address] [place] [address] Performed By: #### 5 8410-2 ####HAND LABORATORYCLIA [id number] [address] RBC (Bld) [#/Vol] 3.53 10*6/uL Low 3.90-5.20 [facility] Comment on above: Order Comment: Speci men Type: BLOOD SPECIMENOrdering Facility: [facility] Address: [address] [place] [address] Performed By: #### 5 8410-2 ####HAND LABORATORYCLIA [id number] [address] WBC (Bld) [#/Vol] 9.13 10*3/uL Normal 3.70-11.00 [facility] Comment on above: Order Comment: Speci men Type: BLOOD SPECIMENOrdering Facility: [facility] Address: [address] [place] [address] Performed By: #### 5 8410-2 ####HAND LABORATORYCLIA [id number] [address] CMPon 12-20-2023 Albumin Level 2.7 G/dL Low 3.4-4.8 [facility] ([place] Comment on above: Performed By: #### L AC, CBC, MARISA, COOPER KAPLAN, TROPHS, CMP, GFR #### Nora [address] [address] Albumin/Globulin [Mass ratio] 0.6 {ratio} Low 1.1-2.5 [facility] ([place] Comment on above: Performed By: #### L AC, CBC, EUSEBIO [place] MDW, TROPHS, CMP, GFR #### Nora [address] [address] ALP [Catalytic activity/Vol] 263 U/L High 40-135 [facility] ([place] Comment on above: Performed By: #### L AC, CBC, MARISA, COOPER KAPLAN, TROPHS, CMP, GFR #### [address] [address] ALT [Catalytic activity/Vol] 21 U/L Normal 14-59 [facility] ([place] Comment on above: Performed By: #### L AC, CBC, ADIFF, ANEU, MDW, TROPHS, CMP, GFR #### [address] [address] AST [Catalytic activity/Vol] 15 U/L Normal 10-40 [facility] ([place] Comment on above: Performed By: #### L AC, CBC, ADIFF, ANEU, MDW, TROPHS, CMP, GFR #### [address] [address] Bili Total 0.4 mg/dL Normal 0.2-1.0 [facility] ([place]) Comment on above: Result Comment: Use of this assay is not recommended for patients undergoing treatment with eltrombopag due to the potential for falsely elevated results. Performed By: #### L AC, CBC, ADIFF, ANEU, MDW, TROPHS, CMP, GFR #### [address] [address] BUN/Creatinine Ratio 8 ratio Normal 7-27 [facility] ([place]) Comment on above: Performed By: #### L AC, CBC, ADIFF, ANEU, MDW, TROPHS, CMP, GFR #### [address] [address] Calcium [Mass/Vol] 8.7 mg/dL Normal 8.4-10.2 [facility] ([place] Comment on above: Performed By: #### L AC, CBC, ADIFF, ANEU, MDW, TROPHS, CMP, GFR #### [address] [address] Chloride [Moles/Vol] 102 mmol/L Normal 98-107 [facility] ([place] Comment on above: Performed By: #### L AC, CBC, ADIFF, ANEU, MDW, TROPHS, CMP, GFR #### [address] [address] CO2 [Moles/Vol] 32 mmol/L High 23-31 [facility] ([place] Comment on above: Performed By: #### L AC, CBC, ADIFF, ANEU, MDW, TROPHS, CMP, GFR #### [address] [address] Creatinine [Mass/Vol] 1.19 mg/dL High 0.55-1.02 [facility] ([place]) Comment on above: Performed By: #### L AC, CBC, ADIFF, ANEU, MDW, TROPHS, CMP, GFR #### [address] [address] Electrolyte Balance 5.0 mEq/L Normal 4.0-15.0 [facility] ([place] Comment on above: Performed By: #### L AC, CBC, ADIFF, ANEU, MDW, TROPHS, CMP, GFR #### [address] [address] Globulin 4.2 G/dL Normal [facility] ([place]) Comment on above: Performed By: #### L AC, CBC, ADIFF, ANEU, MDW, TROPHS, CMP, GFR #### [address] [address] Glucose [Mass/Vol] 139 mg/dL High 80-115 [facility] ([place] Comment on above: Performed By: #### L AC, CBC, ADIFF, ANEU, MDW, TROPHS, CMP, GFR #### [address] [address] Potassium [Moles/Vol] 3.8 mmol/L Normal 3.5-5.1 [facility] ([place] Comment on above: Performed By: #### L AC, CBC, ADIFF, ANEU, MDW, TROPHS, CMP, GFR #### [address] [address] Sodium [Moles/Vol] 139 mmol/L Normal 136-145 [facility] ([place] Comment on above: Performed By: #### L AC, CBC, ADIFF, ANEU, MDW, TROPHS, CMP, GFR #### [facility] [address] [place], [place] [address] Total Protein 6.9 G/dL Normal 6.4-8.2 [facility] ([place] Comment on above: Performed By: #### L AC, CBC, ADIFF, ANEU, MDW, TROPHS, CMP, GFR #### [facility] [address] [place], [place] [address] Urea nitrogen [Mass/Vol] 10 mg/dL Normal 7-18 [facility] ([place] Comment on above: Performed By: #### L AC, CBC, ADIFF, ANEU, MDW, TROPHS, CMP, GFR #### [place] [address] [place], [place] [address] CONSULTon 12-20-2023 CONSULT [facility] CONSULT [facility] CONSULT [facility] CONSULT PROGon 12-20-2023 CONSULT PROG [facility] CT ABD/PELVIS W/ IV CONTRAST ONLYon [...] 12/19/2023 11:05:33 PM Ordering Provider: MERLINE Mahoney [facility] ([place]) Comprehensive metabolic 2000 panelon 12-20-2023 Albumin [Mass/Vol] 3.3 g/dL Low 3.9-4.9 [facility] Comment on above: Order Comment: Cesar piper Type: BLOOD SPECIMENOrdering Facility: [facility] Address: [address] [place] [address] Performed By: #### 2 4323-8, 3040-3, 50893-6 ####[facility] LABORATORYCLIA [id number] [place] [address] [place] ALP [Catalytic activity/Vol] 213 U/L High 34-123 [facility] Comment on above: Order Comment: Cesar piper Type: BLOOD SPECIMENOrdering Facility: [facility] Address: [facility] [place] [address] Performed By: #### 2 4323-8, 3040-3, 80593-0 ####[facility] LABORATORYCLIA [id number] [place] [address] [place] ALT [Catalytic activity/Vol] 10 U/L Normal 7-38 [facility] Comment on above: Order Comment: Speci men Type: BLOOD SPECIMENOrdering Facility: [facility] Address: [address] [place] [id number] Performed By: #### 2 4323-8, 3040-3, 82227-9 ####HAND LABORATORYCLIA [id number] [place] [address] [place] Anion gap [Moles/Vol] 11 mmol/L Normal 9-18 [facility] Comment on above: Order Comment: Speci men Type: BLOOD SPECIMENOrdering Facility: [facility] Address: [address] [place] [address] Performed By: #### 2 4323-8, 3040-3, 45365-4 ####HAND LABORATORYCLIA [id number] [address] [place] AST [Catalytic activity/Vol] 11 U/L Low 13-35 [facility] Comment on above: Order Comment: Speci men Type: BLOOD SPECIMENOrdering Facility: [facility] Address: [address] [place] [place] [id number] Performed By: #### 2 4323-8, 3040-3, 07174-5 ####HAND LABORATORYCLIA [id number] [place] [address] [place] Bilirubin [Mass/Vol] 0.4 mg/dL Normal 0.2-1.3 [facility] Comment on above: Order Comment: Speci men Type: BLOOD SPECIMENOrdering Facility: [facility] Address: [address] [place] [address] Performed By: #### 2 4323-8, 3040-3, 81705-5 ####HAND LABORATORYCLIA [id number] [address] [place] Calcium [Mass/Vol] 9.2 mg/dL Normal 8.5-10.2 [facility] Comment on above: Order Comment: Speci men Type: BLOOD SPECIMENOrdering Facility: [facility] Address: [address] [place] [address] Performed By: #### 2 4323-8, 3040-3, 96273-5 ####[facility] LABORATORYCLIA [id number] [place] [address] [place] Chloride [Moles/Vol] 102 mmol/L Normal 97-105 [facility] Comment on above: Order Comment: Speci men Type: BLOOD SPECIMENOrdering Facility: [facility] Address: [address] [place] [address] Performed By: #### 2 4323-8, 3040-3, 57112-6 ####[facility] LABORATORYCLIA [id number] [place] [address] [place] CO2 [Moles/Vol] 27 mmol/L Normal 22-30 [facility] Comment on above: Order Comment: Cesar piper Type: BLOOD SPECIMENOrdering Facility: [facility] Address: [address] [place] [address] Performed By: #### 2 4323-8, 3040-3, 36944-9 ####[facility] LABORATORYCLIA [id number] [address] [place] Creatinine [Mass/Vol] 0.91 mg/dL Normal 0.58-0.96 [facility] Comment on above: Order Comment: Cesar piper Type: BLOOD SPECIMENOrdering Facility: [facility] Address: [address] [place] [address] Performed By: #### 2 4323-8, 3040-3, 22972-7 ####[facility] LABORATORYCLIA [id number] [address] Creatinine and Glomerular filtration rate.predicted panel (S/P/Bld) 69 mL/min/1.73m??? Normal >=60 [facility] Comment on above: Order Comment: Speci men Type: BLOOD SPECIMENOrdering Facility: [facility] Address: [address] [place] [address] Result Comment: Sweta mated Glomerular Filtration Rate [...] GFR. Performed By: #### 2 4323-8, 3040-3, 39880-4 ####[facility] LABORATORYCLIA [id number] [place] [address] [place] Glucose [Mass/Vol] 183 mg/dL High 74-99 [facility] Comment on above: Order Comment: Cesar piper Type: BLOOD SPECIMENOrdering Facility: [facility] Address: [address] [place] [address] Result Comment: The [place] Diabetes Association (ADA) provides guidance for cutoff [...] Standards of Medical Care in Diabetes 2016, [place] [employer]. Diabetes Care. 2016.39(Suppl 1). Performed By: #### 2 4323-8, 3040-3, 97683-9 ####[facility] LABORATORYCLIA [id number] [place] [address] [place] Potassium [Moles/Vol] 4.0 mmol/L Normal 3.7-5.1 [facility] Comment on above: Order Comment: Cesar piper Type: BLOOD SPECIMENOrdering Facility: [facility] Address: [address] [place] [address] Performed By: #### 2 4323-8, 3040-3, 99491-6 ####[facility] LABORATORYCLIA [id number] [place] [address] [place] Protein [Mass/Vol] 6.7 g/dL Normal 6.3-8.0 [facility] Comment on above: Order Comment: Cesar piper Type: BLOOD SPECIMENOrdering Facility: [facility] Address: [address] [place], [place] [address] Performed By: #### 2 4323-8, 3040-3, 04515-3 ####HAND LABORATORYCLIA [id number] [place] [address] [place] Sodium [Moles/Vol] 140 mmol/L Normal 136-144 [facility] Comment on above: Order Comment: Speci men Type: BLOOD SPECIMENOrdering Facility: [facility] Address: [address] [place] [address] Performed By: #### 2 4323-8, 3040-3, 54279-0 ####HAND LABORATORYCLIA [id number] [place] [address] [place] Urea nitrogen [Mass/Vol] 14 mg/dL Normal 7-21 [facility] Comment on above: Order Comment: Speci men Type: BLOOD SPECIMENOrdering Facility: [facility] Address: [address] [place] [address] Performed By: #### 2 4323-8, 3040-3, 44083-7 ####[facility] LABORATORYCLIA [id number] [address] [place] ECG COMPLETEon 12-20-2023 ECG COMPLETE Normal [facility] HISTORY PHYSICALon 4 HISTORY PHYSICAL Normal [facility] LACon 12-20-2023 Lactic Acid Lvl 1.2 mmol/L Normal 0.4-2.0 [facility] ([place]) Comment on above: Performed By: #### L AC, CBC, ADIFF, ANEU, MDW, TROPHS, CMP, GFR #### [address] [address] Lipase SerPl-cCncon 12-20-19 24 Lipase [Catalytic activity/Vol] 10 U/L Low 16-61 [facility] Comment on above: Order Comment: Speci men Type: BLOOD SPECIMENOrdering Facility: [facility] Address: [address] [place], [place] [address] [address] Performed By: #### 2 4323-8, 3040-3, 41076-4 ####HAND LABORATORYCLIA [id number] [place] [address] [place] NM HEPATOBILIARY WO RXon NM HEPATOBILIARY WO RX Normal [facility] NT-proBNP SerPl-mCncon 12-19 Natriuretic peptide.B prohormone N-Terminal [Mass/Vol] 1731 pg/mL High <125 [facility] Comment on above: Order Comment: Speci men Type: BLOOD SPECIMENOrdering Facility: [facility] Address: [address] [place] [address] Performed By: #### 2 4323-8, 3040-3, 49802-5 ####[facility] LABORATORYCLIA [id number] [place] [address] [facility] TROPHSon 12-20-2023 High Sensitivity Troponin I 19 ng/L Normal 0-51 [facility] ([place]) Comment on above: Result Comment: High Sensitive Troponin I Reference Ranges: Female: 0-51 ng/L Male: 0-76 ng/L Testing performed on 5by using a homogeneous sandwich chemiluminescent immunoassay based on GrabCAD technology. Performed By: #### L AC, CBC, ADIFF, ANEU, MDW, TROPHS, CMP, GFR #### N[address] [place], [place] [address] UAon 12-20-2023 Color (U) Yellow Normal [facility] ([place] Comment on above: Performed By: #### U A #### Nora [address] [address] Glucose (U) [Mass/Vol] Negative Normal Negative [facility] ([place]) Comment on above: Performed By: #### U A #### [place] [place] [address] [place], [place] [address] Ketones Ql (U) Negative Normal Negative [facility] ([place]) Comment on above: Performed By: #### U A #### Nora [address] [address] UA Appear Clear Normal Clear [facility] ([place] Comment on above: Performed By: #### U A #### Nora [address] [address] UA Blood Trace Abnormal Negative [facility] ([place] Comment on above: Performed By: #### U A #### [address] [address] UA Leuk Est Negative Normal Negative [facility] ([place] Comment on above: Performed By: #### U A #### [address] [address] UA Nitrite Negative Normal Negative [facility] ([place]) Comment on above: Performed By: #### U A #### [place] [address] UA pH 5.5 Normal 5.0 - 8.0 [facility] ([place] Comment on above: Performed By: #### U A #### [place] [address] UA Protein Negative Normal Negative [facility] ([place] Comment on above: Performed By: #### U A #### [place] [address] UA Spec Grav 1.025 Normal 1.015-1.02 5 [facility] ([place] Comment on above: Performed By: #### U A #### [address] [address] UA Specimen Type Void Normal [facility] ([place] Comment on above: Performed By: #### U A #### [address] [address] UA Urobilinogen 1.0 E.U./dL Normal 0.2-1.0 [facility] ([place] Comment on above: Performed By: #### U A #### [address] [address] Urobilinogen (U) [Mass/Vol] Negative Normal Negative [facility] ([place]) Comment on above: Performed By: #### U A #### [place] [address] XR CHEST 2V FRONTAL/LATon XR CHEST 2V FRONTAL/LAT Normal [facility] .Auto Diffon 12-19-2023 Basophil, Absolute 0.1 10 3/mcL Normal 0.0-0.2 [facility] ([place]) Comment on above: Performed By: #### L AC, CBC, ADIFF, ANEU, MDW, TROPHS, CMP, GFR #### [address] [address] Basophils/100 WBC (Bld) 0.8 % Normal 0.0-2.[address] [facility] ([place]) Comment on above: Performed By: #### L AC, CBC, ADIFF, ANEU, MDW, TROPHS, CMP, GFR #### [address] [address] Eosinophil, Absolute 0.6 10 3/mcL High 0.0-0.4 [facility] ([place] Comment on above: Performed By: #### L AC, CBC, ADIFF, ANEU, MDW, TROPHS, CMP, GFR #### [address] [address] Eosinophils/100 WBC (Bld) 5.4 % Normal 0.0-7.0 [facility] ([place]) Comment on above: Performed By: #### L AC, CBC, ADIFF, ANEU, MDW, TROPHS, CMP, GFR #### [address] [address] Lymphocyte, Absolute 0.9 10 3/mcL Normal 0.8-3.9 [facility] ([place]) Comment on above: Performed By: #### L AC, CBC, ADIFF, ANEU, MDW, TROPHS, CMP, GFR #### [address] [address] Lymphocytes/100 WBC (Bld) 8.8 % Low 10.0-50.0 [facility] ([place]) Comment on above: Performed By: #### L AC, CBC, ADIFF, ANEU, MDW, TROPHS, CMP, GFR #### [address] [address] Monocyte, Absolute 0.8 10 3/mcL Normal 0.2-1.0 [facility] ([place]) Comment on above: Performed By: #### L AC, CBC, ADIFF, ANEU, MDW, TROPHS, CMP, GFR #### [address] [address] Monocytes/100 WBC (Bld) 7.8 % Normal 1.7-13.[address] [facility] ([place]) Comment on above: Performed By: #### L AC, CBC, ADIFF, ANEU, MDW, TROPHS, CMP, GFR #### [address] [address] Neutrophils/100 WBC (Bld) 77.2 % Normal 37.0-80.0 [facility] ([place]) Comment on above: Performed By: #### L AC, CBC, ADIFF, ANEU, MDW, TROPHS, CMP, GFR #### [address] [address] .MDWon 12-19-2023 Monocyte Distribution Width 24.44 High 0.00-20. 00 [facility] ([place]) Comment on above: Result Comment: For adults in ED, MDW>20.0 may be associated with a higher risk of sepsis during the first 12hrs of hospital admission Performed By: #### L AC, CBC, ADIFF, ANEU, MDW, TROPHS, CMP, GFR #### [address] [address] .NEUABSon 12-19-2023 Neutrophil, Absolute 8.2 10 3/mcL High 2.9-6.2 [facility] ([place]) Comment on above: Performed By: #### L AC, CBC, ADIFF, ANEU, MDW, TROPHS, CMP, GFR #### [address] [address] CBCon 12-19-2023 Erythrocyte distribution width (RBC) [Ratio] 13.7 % Normal 11.5-14.5 [facility] ([place]) Comment on above: Performed By: #### L AC, CBC, ADIFF, ANEU, MDW, TROPHS, CMP, GFR #### [address] [address] Hematocrit (Bld) [Volume fraction] 33.7 % Low 37.0-47.0 [facility] ([place]) Comment on above: Performed By: #### L AC, CBC, ADIFF, ANEU, MDW, TROPHS, CMP, GFR #### [address] [address] Hgb 11.5 G/dL Low 12.0-16.0 [facility] ([place]) Comment on above: Performed By: #### L AC, CBC, ADIFF, ANEU, MDW, TROPHS, CMP, GFR #### [address] [address] MCH (RBC) [Entitic mass] 31.1 pg Normal 27.0-31.2 [facility] ([place]) Comment on above: Performed By: #### L AC, CBC, ADIFF, ANEU, MDW, TROPHS, CMP, GFR #### [address] [address] MCHC 34.1 G/dL Normal 33.0-37.0 [facility] ([place]) Comment on above: Performed By: #### L AC, CBC, ADIFF, ANEU, MDW, TROPHS, CMP, GFR #### [address] [address] MCV (RBC) [Entitic vol] 91.1 fL Normal 80.0-94.[address] [facility] ([place]) Comment on above: Performed By: #### L AC, CBC, ADIFF, ANEU, MDW, TROPHS, CMP, GFR #### [address] [address] Platelet 335 10 3/mcL Normal 130-400 [facility] ([place]) Comment on above: Performed By: #### L AC, CBC, ADIFF, ANEU, MDW, TROPHS, CMP, GFR #### [address] [address] Platelet mean volume (Bld) [Entitic vol] 6.8 fL Low 7.4-10.4 [facility] ([place]) Comment on above: Performed By: #### L AC, CBC, ADIFF, ANEU, MDW, TROPHS, CMP, GFR #### [address] [address] [place], [place] [address] RBC 3.70 10 6/mcL Low 4.20-5.40 [facility] ([place]) Comment on above: Performed By: #### L AC, CBC, ADIFF, ANEU, W, TROPHS, CMP, GFR #### [place] [place] [address] [place], [place] [address] WBC 10.6 10 3/mcL Normal 4.6-10.8 [facility] ([place]) Comment on above: Performed By: #### L AC, CBC, ADIFF, ANEU, MDW, TROPHS, CMP, GFR #### [place] [address] LABORATORYOrdered By: SYSTEM SYSTEM on 12-19-2023 Albumin BCP dye [Mass/Vol] 2.7 G/dL Low 3 .4 - 4.8 G/dL AO ADM SS Albumin/Globulin [...] SS Eosinophils/100 WBC (Bld) 5.4 % Normal 0. 0 - 7.0 % AO Workflow SS Erythrocyte [...] SS Lymphocytes/100 WBC (Bld) 8.8 % Low 10 .0 - 50.0 % AO Workflow SS MCH [...] SS Neutrophils/100 WBC (Bld) 77.2 % Normal 37 .0 - 80.0 % AO Workflow SS Platelet [...] ng/L Male: 0-76 ng/L Testing performed on 5by using a homogeneous sandwich chemiluminescent immunoassay based on GrabCAD technology. Urea nitrogen [Mass/Vol] 10 mg/dL Normal [...] SS CASE MANAGEMon 12-12-2023 CASE MANAGEM Normal [facility] CBC panel Auto (Bld)on 12-11 Erythrocyte distribution width (RBC) [Ratio] 13.2 % Normal 11.5-15.0 [facility] Comment on above: Order Comment: Speci men Type: BLOOD SPECIMENOrdering Facility: [facility] Address: [address] [place] [address] Performed By: #### 5 8410-2 ####HAND LABORATORYCLIA [id number] [address] Hematocrit (Bld) [Volume fraction] 37.6 % Normal 36.0-46.0 [facility] Comment on above: Order Comment: Speci men Type: BLOOD SPECIMENOrdering Facility: [facility] Address: [address] [place] [address] Performed By: #### 5 8410-2 ####HAND LABORATORYCLIA [id number] [address] [place] Hemoglobin (Bld) [Mass/Vol] 11.6 g/dL Normal 11.5-15. 5 [facility] Comment on above: Order Comment: Speci men Type: BLOOD SPECIMENOrdering Facility: [facility] Address: [address] [place] [address] Performed By: #### 5 8410-2 ####HAND LABORATORYCLIA [id number] [place] [address] [place] MCH (RBC) [Entitic mass] 29.7 pg Normal 26.0-34.0 [facility] Comment on above: Order Comment: Speci men Type: BLOOD SPECIMENOrdering Facility: [facility] Address: [address] [place] [address] Performed By: #### 5 8410-2 ####HAND LABORATORYCLIA [id number] [address] [place] MCHC (RBC) [Mass/Vol] 30.9 g/dL Normal 30.5-36.0 [facility] Comment on above: Order Comment: Speci men Type: BLOOD SPECIMENOrdering Facility: [facility] Address: [address] [place] [address] Performed By: #### 5 8410-2 ####HAND LABORATORYCLIA [id number] [place] [address] [place] MCV (RBC) [Entitic vol] 96.4 fL Normal 80.0-100.0 M [facility] Comment on above: Order Comment: Speci men Type: BLOOD SPECIMENOrdering Facility: [facility] Address: [address] [place] [address] Performed By: #### 5 8410-2 ####HAND LABORATORYCLIA [id number] [place] [address] [place] Nucleated RBC (Bld) [#/Vol] 10*3/uL Normal <0.01 [facility] Comment on above: Order Comment: Speci men Type: BLOOD SPECIMENOrdering Facility: [facility] Address: [address] [place] [address] Performed By: #### 5 8410-2 ####HAND LABORATORYCLIA [id number] [place] [address] [place] Platelet mean volume (Bld) [Entitic vol] 9.2 fL Normal 9.0-12.7 [facility] Comment on above: Order Comment: Speci men Type: BLOOD SPECIMENOrdering Facility: [facility] Address: [address] [place] [address] Performed By: #### 5 8410-2 ####HAND LABORATORYCLIA [id number] [place] [address] [place] Platelets (Bld) [#/Vol] 244 10*3/uL Normal 150-400 [facility] Comment on above: Order Comment: Speci men Type: BLOOD SPECIMENOrdering Facility: [facility] Address: [address] [place] [address] Performed By: #### 5 8410-2 ####HAND LABORATORYCLIA [id number] [place] [address] [place] RBC (Bld) [#/Vol] 3.90 10*6/uL Normal 3.90-5.20 [facility] Comment on above: Order Comment: Speci men Type: BLOOD SPECIMENOrdering Facility: [facility] Address: [facility] [address] [place] [address] Performed By: #### 5 8410-2 ####HAND LABORATORYCLIA [id number] [place] [address] [place] WBC (Bld) [#/Vol] 7.44 10*3/uL Normal 3.70-11.00 [facility] Comment on above: Order Comment: Speci men Type: BLOOD SPECIMENOrdering Facility: [facility] Address: [address] [place] [address] Performed By: #### 5 8410-2 ####HAND LABORATORYCLIA [id number] [address] [place] CNDSon 12-12-2023 CNDS Normal [facility] CONSULT PROGon 12-12-2023 CONSULT PROG Normal [facility] Comprehensive metabolic 2000 panelon 12-12-2023 Albumin [Mass/Vol] 3.4 g/dL Low 3.9-4.9 [facility] Comment on above: Order Comment: Speci men Type: BLOOD SPECIMENOrdering Facility: [facility] Address: [address] [place] [address] Performed By: #### 2 4323-8 ####HAND LABORATORYCLIA [id number] [place] [address] [place] ALP [Catalytic activity/Vol] 220 U/L High 34-123 [facility] Comment on above: Order Comment: Speci men Type: BLOOD SPECIMENOrdering Facility: [facility] Address: [address] [place] [address] Performed By: #### 2 4323-8 ####HAND LABORATORYCLIA [id number] [address] [place] ALT [Catalytic activity/Vol] 26 U/L Normal 7-38 [facility] Comment on above: Order Comment: Speci men Type: BLOOD SPECIMENOrdering Facility: [facility] Address: [address] [place] [address] Performed By: #### 2 4323-8 ####HAND LABORATORYCLIA [id number] [place] [address] [place] Anion gap [Moles/Vol] 6 mmol/L Low 9-18 [facility] Comment on above: Order Comment: Speci men Type: BLOOD SPECIMENOrdering Facility: [facility] Address: [address] [place] [address] Performed By: #### 2 4323-8 ####HAND LABORATORYCLIA [id number] [place] [address] [place] AST [Catalytic activity/Vol] 26 U/L Normal 13-35 [facility] Comment on above: Order Comment: Speci men Type: BLOOD SPECIMENOrdering Facility: [facility] Address: [address] [place] [address] Performed By: #### 2 4323-8 ####HAND LABORATORYCLIA [id number] [address] [place] Bilirubin [Mass/Vol] 0.3 mg/dL Normal 0.2-1.3 [facility] Comment on above: Order Comment: Speci men Type: BLOOD SPECIMENOrdering Facility: [facility] Address: [address] [place] [address] Performed By: #### 2 4323-8 ####HAND LABORATORYCLIA [id number] [address] [place] Calcium [Mass/Vol] 9.3 mg/dL Normal 8.5-10.2 [facility] Comment on above: Order Comment: Speci men Type: BLOOD SPECIMENOrdering Facility: [facility] Address: [address] [place] [address] Performed By: #### 2 4323-8 ####HAND LABORATORYCLIA [id number] [address] [place] Chloride [Moles/Vol] 102 mmol/L Normal 97-105 [facility] Comment on above: Order Comment: Speci men Type: BLOOD SPECIMENOrdering Facility: [facility] Address: [address] [place] [address] Performed By: #### 2 4323-8 ####HAND LABORATORYCLIA [id number] [place] [address] [place] CO2 [Moles/Vol] 33 mmol/L High 22-30 [facility] Comment on above: Order Comment: Holai men Type: BLOOD SPECIMENOrdering Facility: [facility] Address: [address] [place] [address] Performed By: #### 2 4323-8 ####HAND LABORATORYCLIA [id number] [address] STATES [facility] Creatinine [Mass/Vol] 0.95 mg/dL Normal 0.58-0.96 [facility] Comment on above: Order Comment: Holai men Type: BLOOD SPECIMENOrdering Facility: [facility] Address: [address] [place] [address] Performed By: #### 2 4323-8 ####HAND LABORATORYCLIA [id number] [address] Creatinine and Glomerular filtration rate.predicted panel (S/P/Bld) 66 mL/min/1.73m??? Normal >=60 [facility] Comment on above: Order Comment: Speci men Type: BLOOD SPECIMENOrdering Facility: [facility] Address: [address] [place] [address] Result Comment: Sweta mated Glomerular Filtration Rate [...] Performed By: #### 2 4323-8 ####HAND LABORATORYCLIA [id number] [address] OF [facility] Glucose [Mass/Vol] 97 mg/dL Normal 74-99 [facility] Comment on above: Order Comment: Cesar feliz Type: BLOOD SPECIMENOrdering Facility: [facility] Address: [address] [place] [address] Result Comment: The [place] [employer] (ADA) provides guidance for cutoff [...] Standards of Medical Care in Diabetes 2016, [place] [employer]. Diabetes Care. 2016.39(Suppl 1). Performed By: #### 2 4323-8 ####HAND LABORATORYCLIA [id number] [place] [address] [place] Potassium [Moles/Vol] 3.8 mmol/L Normal 3.7-5.1 [facility] Comment on above: Order Comment: Speci men Type: BLOOD SPECIMENOrdering Facility: [facility] Address: [address] [place] [address] Performed By: #### 2 4323-8 ####HAND LABORATORYCLIA [id number] [place] [address] [place] Protein [Mass/Vol] 6.2 g/dL Low 6.3-8.0 [facility] Comment on above: Order Comment: Speci men Type: BLOOD SPECIMENOrdering Facility: [facility] Address: [address] [place] [address] Performed By: #### 2 4323-8 ####HAND LABORATORYCLIA [id number] [place] [address] [place] Sodium [Moles/Vol] 141 mmol/L Normal 136-144 [facility] Comment on above: Order Comment: Speci men Type: BLOOD SPECIMENOrdering Facility: [facility] Address: [address] [place] [address] Performed By: #### 2 4323-8 ####HAND LABORATORYCLIA [id number] [place] [address] [place] Urea nitrogen [Mass/Vol] 17 mg/dL Normal 7-21 [facility] Comment on above: Order Comment: Speci men Type: BLOOD SPECIMENOrdering Facility: [facility] Address: [address] [place] [address] Performed By: #### 2 4323-8 ####HAND LABORATORYCLIA [id number] [address] [place] THERAPY NTon 12-12-2023 THERAPY NT Normal [facility] CASE MANAGEMon 12-11-2023 CASE MANAGEM Normal [facility] CBC panel Auto (Bld)on 12-10 Erythrocyte distribution width (RBC) [Ratio] 13.2 % Normal 11.5-15.0 [facility] Comment on above: Order Comment: Speci men Type: BLOOD SPECIMENOrdering Facility: [facility] Address: [address] [place] [address] Performed By: #### 5 8410-2 ####HAND LABORATORYCLIA [id number] [address] STATES [facility] Hematocrit (Bld) [Volume fraction] 36.9 % Normal 36.0-46.0 [facility] Comment on above: Order Comment: Speci men Type: BLOOD SPECIMENOrdering Facility: [facility] Address: [address] [place] [address] Performed By: #### 5 8410-2 ####HAND LABORATORYCLIA [id number] [address] [place] Hemoglobin (Bld) [Mass/Vol] 11.7 g/dL Normal 11.5-15. 5 [facility] Comment on above: Order Comment: Speci men Type: BLOOD SPECIMENOrdering Facility: [facility] Address: [address] [place] [address] Performed By: #### 5 8410-2 ####HAND LABORATORYCLIA [id number] [address] STATES [facility] MCH (RBC) [Entitic mass] 30.0 pg Normal 26.0-34.0 [facility] Comment on above: Order Comment: Speci men Type: BLOOD SPECIMENOrdering Facility: [facility] Address: [address] [place] [address] Performed By: #### 5 8410-2 ####HAND LABORATORYCLIA [id number] [address] MCHC (RBC) [Mass/Vol] 31.7 g/dL Normal 30.5-36.0 [facility] Comment on above: Order Comment: Speci men Type: BLOOD SPECIMENOrdering Facility: [facility] Address: [address] [place] [address] Performed By: #### 5 8410-2 ####HAND LABORATORYCLIA [id number] [address] MCV (RBC) [Entitic vol] 94.6 fL Normal 80.0-100.0 M [facility] Comment on above: Order Comment: Speci men Type: BLOOD SPECIMENOrdering Facility: [facility] Address: [address] [place] [address] Performed By: #### 5 8410-2 ####HAND LABORATORYCLIA [id number] [address] [place] Nucleated RBC (Bld) [#/Vol] 10*3/uL Normal <0.01 [facility] Comment on above: Order Comment: Speci men Type: BLOOD SPECIMENOrdering Facility: [facility] Address: [address] [place] [address] Performed By: #### 5 8410-2 ####HAND LABORATORYCLIA [id number] [address] [place] Platelet mean volume (Bld) [Entitic vol] 8.9 fL Low 9.0-12.7 [facility] Comment on above: Order Comment: Speci men Type: BLOOD SPECIMENOrdering Facility: [facility] Address: [address] [place] [address] Performed By: #### 5 8410-2 ####HAND LABORATORYCLIA [id number] [address] [place] Platelets (Bld) [#/Vol] 218 10*3/uL Normal 150-400 [facility] Comment on above: Order Comment: Speci men Type: BLOOD SPECIMENOrdering Facility: [facility] Address: [address] [place] [address] Performed By: #### 5 8410-2 ####HAND LABORATORYCLIA [id number] [place] [address] [place] RBC (Bld) [#/Vol] 3.90 10*6/uL Normal 3.90-5.20 [facility] Comment on above: Order Comment: Speci men Type: BLOOD SPECIMENOrdering Facility: [facility] Address: [address] [place] [address] Performed By: #### 5 8410-2 ####HAND LABORATORYCLIA [id number] [address] WBC (Bld) [#/Vol] 7.43 10*3/uL Normal 3.70-11.00 [facility] Comment on above: Order Comment: Speci men Type: BLOOD SPECIMENOrdering Facility: [facility] Address: [address] [place] [address] Performed By: #### 5 8410-2 ####HAND LABORATORYCLIA [id number] [address] CONSULT PROGon 12-11-2023 CONSULT PROG Normal [facility] Comprehensive metabolic 2000 panelon 12-11-2023 Albumin [Mass/Vol] 3.3 g/dL Low 3.9-4.9 [facility] Comment on above: Order Comment: Speci men Type: BLOOD SPECIMENOrdering Facility: [facility] Address: [address] [place] [address] Performed By: #### 2 4323-8 ####HAND LABORATORYCLIA [id number] [address] [place] ALP [Catalytic activity/Vol] 223 U/L High 34-123 [facility] Comment on above: Order Comment: Speci men Type: BLOOD SPECIMENOrdering Facility: [facility] Address: [address] [place] [address] Performed By: #### 2 4323-8 ####HAND LABORATORYCLIA [id number] [address] OF [facility] ALT [Catalytic activity/Vol] 30 U/L Normal 7-38 [facility] Comment on above: Order Comment: Speci men Type: BLOOD SPECIMENOrdering Facility: [facility] Address: [address] [place] [address] Performed By: #### 2 4323-8 ####HAND LABORATORYCLIA [id number] [place] [address] [place] Anion gap [Moles/Vol] 8 mmol/L Low 9-18 [facility] Comment on above: Order Comment: Speci men Type: BLOOD SPECIMENOrdering Facility: [facility] Address: [address] [place] [address] Performed By: #### 2 4323-8 ####HAND LABORATORYCLIA [id number] [place] [address] [place] AST [Catalytic activity/Vol] 32 U/L Normal 13-35 [facility] Comment on above: Order Comment: Speci men Type: BLOOD SPECIMENOrdering Facility: [facility] Address: [address] [place] [address] Performed By: #### 2 4323-8 ####HAND LABORATORYCLIA [id number] [place] [address] [place] Bilirubin [Mass/Vol] 0.3 mg/dL Normal 0.2-1.3 [facility] Comment on above: Order Comment: Speci men Type: BLOOD SPECIMENOrdering Facility: [facility] Address: [address] [place] [address] Performed By: #### 2 4323-8 ####HAND LABORATORYCLIA [id number] [address] [place] Calcium [Mass/Vol] 8.9 mg/dL Normal 8.5-10.2 [facility] Comment on above: Order Comment: Speci men Type: BLOOD SPECIMENOrdering Facility: [facility] Address: [address] [place] [address] Performed By: #### 2 4323-8 ####HAND LABORATORYCLIA [id number] [place] [address] [place] Chloride [Moles/Vol] 101 mmol/L Normal 97-105 [facility] Comment on above: Order Comment: Speci men Type: BLOOD SPECIMENOrdering Facility: [facility] Address: [address] [place] [address] Performed By: #### 2 4323-8 ####HAND LABORATORYCLIA [id number] [place] [address] [place] CO2 [Moles/Vol] 31 mmol/L High 22-30 [facility] Comment on above: Order Comment: Speci men Type: BLOOD SPECIMENOrdering Facility: [facility] Address: [address] [place] [address] Performed By: #### 2 4323-8 ####HAND LABORATORYCLIA [id number] [place] [address] [place] Creatinine [Mass/Vol] 1.01 mg/dL High 0.58-0.96 [facility] Comment on above: Order Comment: Speci men Type: BLOOD SPECIMENOrdering Facility: [facility] Address: [address] [place] [address] Performed By: #### 2 4323-8 ####HAND LABORATORYCLIA [id number] [address] OF [facility] Creatinine and Glomerular filtration rate.predicted panel (S/P/Bld) 61 mL/min/1.73m??? Normal >=60 [facility] Comment on above: Order Comment: Speci men Type: BLOOD SPECIMENOrdering Facility: [facility] Address: [address] [place] [address] Result Comment: Sweta mated Glomerular Filtration Rate [...] Performed By: #### 2 4323-8 ####HAND LABORATORYCLIA [id number] [place] [address] [place] Glucose [Mass/Vol] 106 mg/dL High 74-99 [facility] Comment on above: Order Comment: Speci men Type: BLOOD SPECIMENOrdering Facility: [facility] Address: [address] [place] [address] Result Comment: The [place] [employer] (ADA) provides guidance for cutoff [...] Standards of Medical Care in Diabetes 2016, [place] [employer]. Diabetes Care. 2016.39(Suppl 1). Performed By: #### 2 4323-8 ####HAND LABORATORYCLIA [id number] [place] [address] [place] Potassium [Moles/Vol] 3.5 mmol/L Low 3.7-5.1 [facility] Comment on above: Order Comment: Speci men Type: BLOOD SPECIMENOrdering Facility: [facility] Address: [address] [place] [address] Performed By: #### 2 4323-8 ####HAND LABORATORYCLIA [id number] [place] [address] [place] Protein [Mass/Vol] 6.0 g/dL Low 6.3-8.0 [facility] Comment on above: Order Comment: Speci men Type: BLOOD SPECIMENOrdering Facility: [facility] Address: [address] [place] [address] Performed By: #### 2 4323-8 ####HAND LABORATORYCLIA [id number] [place] [address] [place] Sodium [Moles/Vol] 140 mmol/L Normal 136-144 [facility] Comment on above: Order Comment: Speci men Type: BLOOD SPECIMENOrdering Facility: [facility] Address: [address] [place] [address] Performed By: #### 2 4323-8 ####HAND LABORATORYCLIA [id number] [place] [address] [place] Urea nitrogen [Mass/Vol] 24 mg/dL High 7-21 [facility] Comment on above: Order Comment: Speci men Type: BLOOD SPECIMENOrdering Facility: [facility] Address: [address] [place] [address] Performed By: #### 2 4323-8 ####[facility] LABORATORYCLIA [id number] [place] [address] [place] THERAPY NTon 12-11-2023 THERAPY NT Normal [facility] CASE MANAGEMon 12-10-2023 CASE MANAGEM Normal [facility] CBC panel Auto (Bld)on 12-09 Erythrocyte distribution width (RBC) [Ratio] 12.9 % Normal 11.5-15.0 [facility] Comment on above: Order Comment: Speci men Type: BLOOD SPECIMENOrdering Facility: [facility] Address: [address] [place] [address] Performed By: #### 5 8410-2 ####HAND LABORATORYCLIA [id number] [address] [place] Hematocrit (Bld) [Volume fraction] 41.3 % Normal 36.0-46.0 [facility] Comment on above: Order Comment: Speci men Type: BLOOD SPECIMENOrdering Facility: [facility] Address: [address] [place] [address] Performed By: #### 5 8410-2 ####[facility] LABORATORYCLIA [id number] [place] [address] [place] Hemoglobin (Bld) [Mass/Vol] 13.4 g/dL Normal 11.5-15. 5 [facility] Comment on above: Order Comment: Speci men Type: BLOOD SPECIMENOrdering Facility: [facility] Address: [address] [place] [address] Performed By: #### 5 8410-2 ####HAND LABORATORYCLIA [id number] [place] [address] [place] MCH (RBC) [Entitic mass] 29.8 pg Normal 26.0-34.0 [facility] Comment on above: Order Comment: Speci men Type: BLOOD SPECIMENOrdering Facility: [facility] Address: [address] [place] [address] Performed By: #### 5 8410-2 ####HAND LABORATORYCLIA [id number] [address] MCHC (RBC) [Mass/Vol] 32.4 g/dL Normal 30.5-36.0 [facility] Comment on above: Order Comment: Speci men Type: BLOOD SPECIMENOrdering Facility: [facility] Address: [address] [place] [address] Performed By: #### 5 8410-2 ####HAND LABORATORYCLIA [id number] [address] MCV (RBC) [Entitic vol] 91.8 fL Normal 80.0-100.0 M [facility] Comment on above: Order Comment: Speci men Type: BLOOD SPECIMENOrdering Facility: [facility] Address: [address] [place] [address] Performed By: #### 5 8410-2 ####HAND LABORATORYCLIA [id number] [address] Nucleated RBC (Bld) [#/Vol] 10*3/uL Normal <0.01 [facility] Comment on above: Order Comment: Speci men Type: BLOOD SPECIMENOrdering Facility: [facility] Address: [address] [place] [address] Performed By: #### 5 8410-2 ####HAND LABORATORYCLIA [id number] [address] Platelet mean volume (Bld) [Entitic vol] 9.1 fL Normal 9.0-12.7 [facility] Comment on above: Order Comment: Speci men Type: BLOOD SPECIMENOrdering Facility: [facility] Address: [address] [place] [address] Performed By: #### 5 8410-2 ####HAND LABORATORYCLIA [id number] [address] [place] Platelets (Bld) [#/Vol] 256 10*3/uL Normal 150-400 [facility] Comment on above: Order Comment: Speci men Type: BLOOD SPECIMENOrdering Facility: [facility] Address: [address] [place] [address] Performed By: #### 5 8410-2 ####HAND LABORATORYCLIA [id number] [address] [place] RBC (Bld) [#/Vol] 4.50 10*6/uL Normal 3.90-5.20 [facility] Comment on above: Order Comment: Speci men Type: BLOOD SPECIMENOrdering Facility: [facility] Address: [address] [place] [address] Performed By: #### 5 8410-2 ####[facility] LABORATORYCLIA [id number] [address] OF [facility] WBC (Bld) [#/Vol] 7.79 10*3/uL Normal 3.70-11.00 [facility] Comment on above: Order Comment: Speci men Type: BLOOD SPECIMENOrdering Facility: [facility] Address: [address] [place] [address] Performed By: #### 5 8410-2 ####[facility] LABORATORYCLIA [id number] [address] CONSULT PROGon 12-10-2023 CONSULT PROG Normal [facility] CONSULT PROG Normal [facility] Comprehensive metabolic 2000 panelon 12-10-2023 Albumin [Mass/Vol] 3.8 g/dL Low 3.9-4.9 [facility] Comment on above: Order Comment: Speci men Type: BLOOD SPECIMENOrdering Facility: [facility] Address: [address] [place] [address] Performed By: #### 2 4323-8 ####[facility] LABORATORYCLIA [id number] [address] ALP [Catalytic activity/Vol] 289 U/L High 34-123 [facility] Comment on above: Order Comment: Speci men Type: BLOOD SPECIMENOrdering Facility: [facility] Address: [address] [place] [address] Performed By: #### 2 4323-8 ####HAND LABORATORYCLIA [id number] [place] [address] [place] ALT [Catalytic activity/Vol] 50 U/L High 7-38 [facility] Comment on above: Order Comment: Speci men Type: BLOOD SPECIMENOrdering Facility: [facility] Address: [address] [place] [address] Performed By: #### 2 4323-8 ####HAND LABORATORYCLIA [id number] [place] [address] [place] Anion gap [Moles/Vol] 12 mmol/L Normal 9-18 [facility] Comment on above: Order Comment: Speci men Type: BLOOD SPECIMENOrdering Facility: [facility] Address: [address] [place] [address] Performed By: #### 2 4323-8 ####HAND LABORATORYCLIA [id number] [place] [address] [place] AST [Catalytic activity/Vol] 58 U/L High 13-35 [facility] Comment on above: Order Comment: Speci men Type: BLOOD SPECIMENOrdering Facility: [facility] Address: [address] [place] [address] Performed By: #### 2 4323-8 ####HAND LABORATORYCLIA [id number] [place] [address] [place] Bilirubin [Mass/Vol] 0.3 mg/dL Normal 0.2-1.3 [facility] Comment on above: Order Comment: Speci men Type: BLOOD SPECIMENOrdering Facility: [facility] Address: [address] [place] [address] Performed By: #### 2 4323-8 ####HAND LABORATORYCLIA [id number] [address] [place] Calcium [Mass/Vol] 9.6 mg/dL Normal 8.5-10.2 [facility] Comment on above: Order Comment: Speci men Type: BLOOD SPECIMENOrdering Facility: [facility] Address: [address] [place] [address] Performed By: #### 2 4323-8 ####HAND LABORATORYCLIA [id number] [place] [address] [place] Chloride [Moles/Vol] 98 mmol/L Normal 97-105 [facility] Comment on above: Order Comment: Speci men Type: BLOOD SPECIMENOrdering Facility: [facility] Address: [address] [place] [address] Performed By: #### 2 4323-8 ####HAND LABORATORYCLIA [id number] [place] [address] [place] CO2 [Moles/Vol] 27 mmol/L Normal 22-30 [facility] Comment on above: Order Comment: Holai men Type: BLOOD SPECIMENOrdering Facility: [facility] Address: [address] [place] [address] Performed By: #### 2 4323-8 ####HAND LABORATORYCLIA [id number] [address] OF [facility] Creatinine [Mass/Vol] 0.79 mg/dL Normal 0.58-0.96 [facility] Comment on above: Order Comment: Speci men Type: BLOOD SPECIMENOrdering Facility: [facility] Address: [address] [place] [address] Performed By: #### 2 4323-8 ####HAND LABORATORYCLIA [id number] [address] Creatinine and Glomerular filtration rate.predicted panel (S/P/Bld) 82 mL/min/1.73m??? Normal >=60 [facility] Comment on above: Order Comment: Speci men Type: BLOOD SPECIMENOrdering Facility: [facility] Address: [address] [place] [address] Result Comment: Sweta mated Glomerular Filtration Rate [...] actual GFR. Performed By: #### 2 4323-8 ####HNAD LABORATORYCLIA [id number] [place] [address] [place] Glucose [Mass/Vol] 117 mg/dL High 74-99 [facility] Comment on above: Order Comment: Cesar piper Type: BLOOD SPECIMENOrdering Facility: [facility] Address: [address] [place] [id number] Result Comment: The [place] [employer] (ADA) provides guidance for cutoff [...] Standards of Medical Care in Diabetes 2016, [place] [employer]. Diabetes Care. 2016.39(Suppl 1). Performed By: #### 2 4323-8 ####HAND LABORATORYCLIA [id number] [place] [address] [place] Potassium [Moles/Vol] 4.1 mmol/L Normal 3.7-5.1 [facility] Comment on above: Order Comment: Cesar piper Type: BLOOD SPECIMENOrdering Facility: [facility] Address: [address] [place], [place] [address] Performed By: #### 2 4323-8 ####HAND LABORATORYCLIA [id number] [place] [id number] [place] Protein [Mass/Vol] 7.0 g/dL Normal 6.3-8.0 [facility] Comment on above: Order Comment: Cesar piper Type: BLOOD SPECIMENOrdering Facility: [facility] Address: [address] [place], [place] [address] Performed By: #### 2 4323-8 ####HAND LABORATORYCLIA [id number] [place] [address] [place] Sodium [Moles/Vol] 137 mmol/L Normal 136-144 [facility] Comment on above: Order Comment: Cesar men Type: BLOOD SPECIMENOrdering Facility: [facility] Address: [address] [place] [address] Performed By: #### 2 4323-8 ####HAND LABORATORYCLIA [id number] [place] [id number] [place] Urea nitrogen [Mass/Vol] 14 mg/dL Normal 7-21 [facility] Comment on above: Order Comment: Speci men Type: BLOOD SPECIMENOrdering Facility: [facility] Address: [address] [place], [place] [address] [address] Performed By: #### 2 4323-8 ####HAND LABORATORYCLIA [id number] [address] OF [place] NURSING PROGon 12-10-2023 NURSING PROG [facility] THERAPY NTon 12-10-2023 THERAPY NT [facility] ANES POSTPROC EVALon 024 ANES POSTPROC EVAL [facility] ANES PRE-OPon 12-09-2023 ANES PRE-OP [facility] CASE MANAGEMon 12-09-2023 CASE MANAGEM [facility] CBC panel Auto (Bld)on 12-08 Erythrocyte distribution width (RBC) [Ratio] 13.2 % Normal 11.5-15.0 [facility] Comment on above: Order Comment: Speci men Type: BLOOD SPECIMENOrdering Facility: [facility] Address: [facility] [address] [place] [address] Performed By: #### 5 8410-2 ####HAND LABORATORYCLIA [id number] [place] [id number] [place] Hematocrit (Bld) [Volume fraction] 36.0 % Normal 36.0-46.0 [facility] Comment on above: Order Comment: Speci men Type: BLOOD SPECIMENOrdering Facility: [facility] Address: [facility] [address] [place] [address] Performed By: #### 5 8410-2 ####HAND LABORATORYCLIA [id number] [place] [id number] [place] Hemoglobin (Bld) [Mass/Vol] 11.5 g/dL Normal 11.5-15. 5 [facility] Comment on above: Order Comment: Speci men Type: BLOOD SPECIMENOrdering Facility: [facility] Address: [address] [place] [address] Performed By: #### 5 8410-2 ####HAND LABORATORYCLIA [id number] [address] MCH (RBC) [Entitic mass] 30.7 pg Normal 26.0-34.0 [facility] Comment on above: Order Comment: Speci men Type: BLOOD SPECIMENOrdering Facility: [facility] Address: [address] [place] [address] Performed By: #### 5 8410-2 ####[facility] LABORATORYCLIA [id number] [address] MCHC (RBC) [Mass/Vol] 31.9 g/dL Normal 30.5-36.0 [facility] Comment on above: Order Comment: Speci men Type: BLOOD SPECIMENOrdering Facility: [facility] Address: [address] [place] [address] Performed By: #### 5 8410-2 ####HAND LABORATORYCLIA [id number] [address] MCV (RBC) [Entitic vol] 96.0 fL Normal 80.0-100.0 M [facility] Comment on above: Order Comment: Speci men Type: BLOOD SPECIMENOrdering Facility: [facility] Address: [address] [place] [address] Performed By: #### 5 8410-2 ####HAND LABORATORYCLIA [id number] [address] Nucleated RBC (Bld) [#/Vol] 10*3/uL Normal <0.01 [facility] Comment on above: Order Comment: Speci men Type: BLOOD SPECIMENOrdering Facility: [facility] Address: [address] [place] [address] Performed By: #### 5 8410-2 ####HAND LABORATORYCLIA [id number] [address] Platelet mean volume (Bld) [Entitic vol] 8.8 fL Low 9.0-12.7 [facility] Comment on above: Order Comment: Speci men Type: BLOOD SPECIMENOrdering Facility: [facility] Address: [address] [place] [address] Performed By: #### 5 8410-2 ####HAND LABORATORYCLIA [id number] [address] [place] Platelets (Bld) [#/Vol] 202 10*3/uL Normal 150-400 [facility] Comment on above: Order Comment: Speci men Type: BLOOD SPECIMENOrdering Facility: [facility] Address: [address] [place] [address] Performed By: #### 5 8410-2 ####[facility] LABORATORYCLIA [id number] [place] [address] [place] RBC (Bld) [#/Vol] 3.75 10*6/uL Low 3.90-5.20 [facility] Comment on above: Order Comment: Speci men Type: BLOOD SPECIMENOrdering Facility: [facility] Address: [address] [place] [address] Performed By: #### 5 8410-2 ####[facility] LABORATORYCLIA [id number] [address] [place] WBC (Bld) [#/Vol] 6.42 10*3/uL Normal 3.70-11.00 [facility] Comment on above: Order Comment: Speci men Type: BLOOD SPECIMENOrdering Facility: [facility] Address: [address] [place] [address] Performed By: #### 5 8410-2 ####HAND LABORATORYCLIA [id number] [address] [place] CONSULT PROGon 12-09-2023 CONSULT PROG Normal [facility] Comprehensive metabolic 2000 panelon 12-09-2023 Albumin [Mass/Vol] 3.7 g/dL Low 3.9-4.9 [facility] Comment on above: Order Comment: Speci men Type: BLOOD SPECIMENOrdering Facility: [facility] Address: [address] [place] [address] Performed By: #### 2 4323-8 ####HAND LABORATORYCLIA [id number] [place] [address] [place] ALP [Catalytic activity/Vol] 249 U/L High 34-123 [facility] Comment on above: Order Comment: Speci men Type: BLOOD SPECIMENOrdering Facility: [facility] Address: [address] [place] [address] Performed By: #### 2 4323-8 ####HAND LABORATORYCLIA [id number] [place] [address] [place] ALT [Catalytic activity/Vol] 53 U/L High 7-38 [facility] Comment on above: Order Comment: Speci men Type: BLOOD SPECIMENOrdering Facility: [facility] Address: [address] [place] [address] Performed By: #### 2 4323-8 ####HAND LABORATORYCLIA [id number] [place] [address] [place] [facility] Anion gap [Moles/Vol] 5 mmol/L Low 9-18 [facility] Comment on above: Order Comment: Speci men Type: BLOOD SPECIMENOrdering Facility: [facility] Address: [address] [place] [address] Performed By: #### 2 4323-8 ####HAND LABORATORYCLIA [id number] [address] [place] AST [Catalytic activity/Vol] 42 U/L High 13-35 [facility] Comment on above: Order Comment: Speci men Type: BLOOD SPECIMENOrdering Facility: [facility] Address: [address] [place] [address] Performed By: #### 2 4323-8 ####HAND LABORATORYCLIA [id number] [address] [place] Bilirubin [Mass/Vol] 0.2 mg/dL Normal 0.2-1.3 [facility] Comment on above: Order Comment: Speci men Type: BLOOD SPECIMENOrdering Facility: [facility] Address: [address] [place] [address] Performed By: #### 2 4323-8 ####HAND LABORATORYCLIA [id number] [place] [address] [place] Calcium [Mass/Vol] 9.3 mg/dL Normal 8.5-10.2 [facility] Comment on above: Order Comment: Speci men Type: BLOOD SPECIMENOrdering Facility: [facility] Address: [address] [place] [address] Performed By: #### 2 4323-8 ####HAND LABORATORYCLIA [id number] [place] [address] [place] Chloride [Moles/Vol] 99 mmol/L Normal 97-105 [facility] Comment on above: Order Comment: Speci men Type: BLOOD SPECIMENOrdering Facility: [facility] Address: [address] [place] [address] Performed By: #### 2 4323-8 ####HAND LABORATORYCLIA [id number] [place] [address] [place] CO2 [Moles/Vol] 33 mmol/L High 22-30 [facility] Comment on above: Order Comment: Speci men Type: BLOOD SPECIMENOrdering Facility: [facility] Address: [address] [place] [address] Performed By: #### 2 4323-8 ####HAND LABORATORYCLIA [id number] [place] [address] [place] Creatinine [Mass/Vol] 1.12 mg/dL High 0.58-0.96 [facility] Comment on above: Order Comment: Speci men Type: BLOOD SPECIMENOrdering Facility: [facility] Address: [address] [place] [address] Performed By: #### 2 4323-8 ####HAND LABORATORYCLIA [id number] [place] [address] [place] Creatinine and Glomerular filtration rate.predicted panel (S/P/Bld) 54 mL/min/1.73m??? Low >=60 [facility] Comment on above: Order Comment: Speci men Type: BLOOD SPECIMENOrdering Facility: [facility] Address: [address] [place] [address] Result Comment: Sweta mated Glomerular Filtration Rate [...] actual GFR. Performed By: #### 2 4323-8 ####[facility] LABORATORYCLIA [id number] [place] [address] [place] Glucose [Mass/Vol] 95 mg/dL Normal 74-99 [facility] Comment on above: Order Comment: Cesar piper Type: BLOOD SPECIMENOrdering Facility: [facility] Address: [address] [place] [address] Result Comment: The [place] Diabetes [employer] (ADA) provides guidance for cutoff [...] Standards of Medical Care in Diabetes 2016, [place] [employer]. Diabetes Care. 2016.39(Suppl 1). Performed By: #### 2 4323-8 ####[facility] LABORATORYCLIA [id number] [place] [id number] [place] Potassium [Moles/Vol] 4.1 mmol/L Normal 3.7-5.1 [facility] Comment on above: Order Comment: Cesar piper Type: BLOOD SPECIMENOrdering Facility: [facility] Address: [address] [place] [address] Performed By: #### 2 4323-8 ####HAND LABORATORYCLIA [id number] [place] [address] [place] Protein [Mass/Vol] 6.2 g/dL Low 6.3-8.0 [facility] Comment on above: Order Comment: Cesar piper Type: BLOOD SPECIMENOrdering Facility: [facility] Address: [address] [place] [address] Performed By: #### 2 4323-8 ####HAND LABORATORYCLIA [id number] [address] Sodium [Moles/Vol] 137 mmol/L Normal 136-144 [facility] Comment on above: Order Comment: Speci men Type: BLOOD SPECIMENOrdering Facility: [facility] Address: [address] [place] [address] Performed By: #### 2 4323-8 ####HAND LABORATORYCLIA [id number] [address] [place] Urea nitrogen [Mass/Vol] 17 mg/dL Normal 7-21 [facility] Comment on above: Order Comment: Speci men Type: BLOOD SPECIMENOrdering Facility: [facility] Address: [address] [place] [address] Performed By: #### 2 4323-8 ####HAND LABORATORYCLIA [id number] [address] [place] OPERATIVE NOon 12-09-2023 OPERATIVE NO Normal [facility] SURGICAL PATHOLOGYon 024 CASE REPORT Normal [facility] Comment on above: Order Comment: Speci men Type: TISSUE SPECIMENOrdering Facility: [facility] Address: [address] [place] [address] Result Comment: [facility] Pathology Report Case: [id number] Provider: Darrell Tejada MD Collected: 12/09/2023 12:10 PMOrdering Location: [facility] Received: 12/09/2023 03:22 PMPathologist: Israel Rosales MDSpecimen: GALLBLADDER Performed By: #### S ####[facility] LABCLIA [id number] [facility] [id number] [place] [address] [place] CLINICAL HISTORY Normal [facility] Comment on above: Order Comment: Speci men Type: TISSUE SPECIMENOrdering Facility: [facility] Address: [address] [place] [address] Result Comment: Pre- op diagnosis:Choledocholithiasis [K80.50] Performed By: #### S ####[facility] LABCLIA [id number] [address] FINAL DIAGNOSIS Normal [facility] Comment on above: Order Comment: Speci feliz Type: TISSUE SPECIMENOrdering Facility: [facility] Address: [address] [place] [address] Result Comment: A. G allbladder, cholecystectomy:- Acute and chronic cholecystitis with cholelithiasis. Performed By: #### S ####[facility] LABCLIA [id number] [address] FINAL PERFORMING LAB [facility] Comment on above: Order Comment: Holai [facility] Type: TISSUE SPECIMENOrdering Facility: [facility] Address: [address] [place] [address] Result Comment: Diag nostic interpretation performed at [facility], [address] [place] [address] CLIA# [id number] Director: Chaz Deras M.D. Performed By: #### S ####[facility] LABCLIA [id number] [address] GROSS DESCRIPTION A. GALLBLADDER Normal [facility] Comment on above: Order Comment: Holai [facility] Type: TISSUE SPECIMENOrdering Facility: [facility] Address: [address] [place] [address] Result Comment: Rece ived in formalin labeled [...] the cystic duct. The mucosa is bile-stained. Stitcher Set Up Operator Automatic sections are submitted in two cassettes.Gross examination performed at [facility], [address] [place] [address] CLIA# [id number] December 10, 2023 9:39 AM Performed By: #### S ####[facility] LABCLIA [id number] [place] [address] [id number] [place] THERAPY NTon 12-09-2023 THERAPY NT Normal [facility] CASE MANAGEMon 12-08-2023 CASE MANAGEM [facility] CBC panel Auto (Bld)on 12-07 Erythrocyte distribution width (RBC) [Ratio] 12.9 % Normal 11.5-15.0 [facility] Comment on above: Order Comment: Speci men Type: BLOOD SPECIMENOrdering Facility: [facility] Address: [address] [place] [address] Performed By: #### 5 8410-2 ####[facility] LABORATORYCLIA [id number] [address] [place] Hematocrit (Bld) [Volume fraction] 37.2 % Normal 36.0-46.0 [facility] Comment on above: Order Comment: Speci men Type: BLOOD SPECIMENOrdering Facility: [facility] Address: [address] [place] [address] Performed By: #### 5 8410-2 ####[facility] LABORATORYCLIA [id number] [place] [address] [place] Hemoglobin (Bld) [Mass/Vol] 12.0 g/dL Normal 11.5-15. 5 [facility] Comment on above: Order Comment: Speci men Type: BLOOD SPECIMENOrdering Facility: [facility] Address: [address] [place] [address] Performed By: #### 5 8410-2 ####HAND LABORATORYCLIA [id number] [address] [place] MCH (RBC) [Entitic mass] 30.4 pg Normal 26.0-34.0 [facility] Comment on above: Order Comment: Speci men Type: BLOOD SPECIMENOrdering Facility: [facility] Address: [address] [place] [address] Performed By: #### 5 8410-2 ####HAND LABORATORYCLIA [id number] [address] MCHC (RBC) [Mass/Vol] 32.3 g/dL Normal 30.5-36.0 [facility] Comment on above: Order Comment: Speci men Type: BLOOD SPECIMENOrdering Facility: [facility] Address: [address] [place] [address] Performed By: #### 5 8410-2 ####HAND LABORATORYCLIA [id number] [address] MCV (RBC) [Entitic vol] 94.2 fL Normal 80.0-100.0 [facility] Comment on above: Order Comment: Speci men Type: BLOOD SPECIMENOrdering Facility: [facility] Address: [address] [place] [address] Performed By: #### 5 8410-2 ####HAND LABORATORYCLIA [id number] [address] Nucleated RBC (Bld) [#/Vol] 10*3/uL Normal <0.01 [facility] Comment on above: Order Comment: Speci men Type: BLOOD SPECIMENOrdering Facility: [facility] Address: [address] [place] [address] Performed By: #### 5 8410-2 ####HAND LABORATORYCLIA [id number] [address] STATES [facility] Platelet mean volume (Bld) [Entitic vol] 9.0 fL Normal 9.0-12.7 [facility] Comment on above: Order Comment: Speci men Type: BLOOD SPECIMENOrdering Facility: [facility] Address: [address] [place] [address] Performed By: #### 5 8410-2 ####HAND LABORATORYCLIA [id number] [address] [place] Platelets (Bld) [#/Vol] 233 10*3/uL Normal 150-400 [facility] Comment on above: Order Comment: Speci men Type: BLOOD SPECIMENOrdering Facility: [facility] Address: [address] [place] [address] Performed By: #### 5 8410-2 ####HAND LABORATORYCLIA [id number] [address] OF [facility] RBC (Bld) [#/Vol] 3.95 10*6/uL Normal 3.90-5.20 [facility] Comment on above: Order Comment: Speci men Type: BLOOD SPECIMENOrdering Facility: [facility] Address: [address] [place] [address] Performed By: #### 5 8410-2 ####[facility] LABORATORYCLIA [id number] [address] WBC (Bld) [#/Vol] 9.20 10*3/uL Normal 3.70-11.00 [facility] Comment on above: Order Comment: Speci men Type: BLOOD SPECIMENOrdering Facility: [facility] Address: [address] [place] [address] Performed By: #### 5 8410-2 ####[facility] LABORATORYCLIA [id number] [address] [place] CONSULTon 12-08-2023 CONSULT Normal [facility] CONSULT PROGon 12-08-2023 CONSULT PROG Normal [facility] Comprehensive metabolic 2000 panelon 12-08-2023 Albumin [Mass/Vol] 4.0 g/dL Normal 3.9-4.9 [facility] Comment on above: Order Comment: Speci men Type: BLOOD SPECIMENOrdering Facility: [facility] Address: [address] [place] [address] Performed By: #### 2 4323-8 ####[facility] LABORATORYCLIA [id number] [address] [place] ALP [Catalytic activity/Vol] 272 U/L High 34-123 [facility] Comment on above: Order Comment: Speci men Type: BLOOD SPECIMENOrdering Facility: [facility] Address: [address] [place] [address] Performed By: #### 2 4323-8 ####HAND LABORATORYCLIA [id number] [place] [address] [place] ALT [Catalytic activity/Vol] 75 U/L High 7-38 [facility] Comment on above: Order Comment: Speci men Type: BLOOD SPECIMENOrdering Facility: [facility] Address: [address] [place] [address] Performed By: #### 2 4323-8 ####HAND LABORATORYCLIA [id number] [place] [address] [place] [facility] Anion gap [Moles/Vol] 8 mmol/L Low 9-18 [facility] Comment on above: Order Comment: Speci men Type: BLOOD SPECIMENOrdering Facility: [facility] Address: [address] [place] [address] Performed By: #### 2 4323-8 ####HAND LABORATORYCLIA [id number] [address] [place] AST [Catalytic activity/Vol] 73 U/L High 13-35 [facility] Comment on above: Order Comment: Speci men Type: BLOOD SPECIMENOrdering Facility: [facility] Address: [address] [place] [address] Performed By: #### 2 4323-8 ####HAND LABORATORYCLIA [id number] [place] [address] [place] Bilirubin [Mass/Vol] 0.2 mg/dL Normal 0.2-1.3 [facility] Comment on above: Order Comment: Speci men Type: BLOOD SPECIMENOrdering Facility: [facility] Address: [address] [place] [address] Performed By: #### 2 4323-8 ####HAND LABORATORYCLIA [id number] [address] Calcium [Mass/Vol] 9.7 mg/dL Normal 8.5-10.2 [facility] Comment on above: Order Comment: Speci men Type: BLOOD SPECIMENOrdering Facility: [facility] Address: [address] [place] [address] Performed By: #### 2 4323-8 ####HAND LABORATORYCLIA [id number] [address] [place] Chloride [Moles/Vol] 103 mmol/L Normal 97-105 [facility] Comment on above: Order Comment: Speci men Type: BLOOD SPECIMENOrdering Facility: [facility] Address: [address] [place] [address] Performed By: #### 2 4323-8 ####HAND LABORATORYCLIA [id number] [address] [place] CO2 [Moles/Vol] 29 mmol/L Normal 22-30 [facility] Comment on above: Order Comment: Speci men Type: BLOOD SPECIMENOrdering Facility: [facility] Address: [address] [place] [address] Performed By: #### 2 4323-8 ####HAND LABORATORYCLIA [id number] [address] Creatinine [Mass/Vol] 0.82 mg/dL Normal 0.58-0.96 [facility] Comment on above: Order Comment: Speci men Type: BLOOD SPECIMENOrdering Facility: [facility] Address: [address] [place] [address] Performed By: #### 2 4323-8 ####HAND LABORATORYCLIA [id number] [address] Creatinine and Glomerular filtration rate.predicted panel (S/P/Bld) 79 mL/min/1.73m??? Normal >=60 [facility] Comment on above: Order Comment: Speci men Type: BLOOD SPECIMENOrdering Facility: [facility] Address: [address] [place] [address] Result Comment: Sweta mated Glomerular Filtration Rate [...] Performed By: #### 2 4323-8 ####HAND LABORATORYCLIA [id number] [place] [address] [place] Glucose [Mass/Vol] 116 mg/dL High 74-99 [facility] Comment on above: Order Comment: Cesar piper Type: BLOOD SPECIMENOrdering Facility: [facility] Address: [address] [place] [address] Result Comment: The [place] Diabetes [employer] (ADA) provides guidance for cutoff [...] Standards of Medical Care in Diabetes 2016, [place] [employer]. Diabetes Care. 2016.39(Suppl 1). Performed By: #### 2 4323-8 ####HAND LABORATORYCLIA [id number] [place] [address] [place] Potassium [Moles/Vol] 3.9 mmol/L Normal 3.7-5.1 [facility] Comment on above: Order Comment: Cesar piper Type: BLOOD SPECIMENOrdering Facility: [facility] Address: [address] [place] [address] Performed By: #### 2 4323-8 ####HAND LABORATORYCLIA [id number] [place] [address] [place] Protein [Mass/Vol] 6.7 g/dL Normal 6.3-8.0 [facility] Comment on above: Order Comment: Cesar men Type: BLOOD SPECIMENOrdering Facility: [facility] Address: [address] [place] [address] Performed By: #### 2 4323-8 ####HAND LABORATORYCLIA [id number] [place] [address] [place] Sodium [Moles/Vol] 140 mmol/L Normal 136-144 [facility] Comment on above: Order Comment: Holai men Type: BLOOD SPECIMENOrdering Facility: [facility] Address: [address] [place] [address] Performed By: #### 2 4323-8 ####HAND LABORATORYCLIA [id number] [place] [address] [place] Urea nitrogen [Mass/Vol] 16 mg/dL Normal 7-21 [facility] Comment on above: Order Comment: Speci men Type: BLOOD SPECIMENOrdering Facility: [facility] Address: [address] [place] [address] [place] [address] Performed By: #### 2 4323-8 ####HAND LABORATORYCLIA [id number] [place] [address] [place] NURSING PROGon 12-08-2023 NURSING PROG [facility] ANES POSTPROC EVALon 024 ANES POSTPROC EVAL [facility] ANES PRE-OPon 12-07-2023 ANES PRE-OP [facility] CASE MANAGEMon 12-07-2023 CASE MANAGEM [facility] CBC panel Auto (Bld)on 12-06 Erythrocyte distribution width (RBC) [Ratio] 13.2 % Normal 11.5-15.0 [facility] Comment on above: Order Comment: Speci men Type: BLOOD SPECIMENOrdering Facility: [facility] Address: [address] [place] [address] Performed By: #### 5 8410-2 ####HAND LABORATORYCLIA [id number] [address] [place] Hematocrit (Bld) [Volume fraction] 38.0 % Normal 36.0-46.0 [facility] Comment on above: Order Comment: Speci men Type: BLOOD SPECIMENOrdering Facility: [facility] Address: [address] [place] [address] [place] [address] Performed By: #### 5 8410-2 ####HAND LABORATORYCLIA [id number] [place] [address] [place] Hemoglobin (Bld) [Mass/Vol] 11.7 g/dL Normal 11.5-15. 5 [facility] Comment on above: Order Comment: Speci men Type: BLOOD SPECIMENOrdering Facility: [facility] Address: [address] [place] [address] Performed By: #### 5 8410-2 ####HAND LABORATORYCLIA [id number] [address] MCH (RBC) [Entitic mass] 29.7 pg Normal 26.0-34.0 [facility] Comment on above: Order Comment: Speci men Type: BLOOD SPECIMENOrdering Facility: [facility] Address: [address] [place] [address] Performed By: #### 5 8410-2 ####HAND LABORATORYCLIA [id number] [address] MCHC (RBC) [Mass/Vol] 30.8 g/dL Normal 30.5-36.0 [facility] Comment on above: Order Comment: Speci men Type: BLOOD SPECIMENOrdering Facility: [facility] Address: [address] [place] [address] Performed By: #### 5 8410-2 ####HAND LABORATORYCLIA [id number] [address] MCV (RBC) [Entitic vol] 96.4 fL Normal 80.0-100.0 [facility] Comment on above: Order Comment: Speci men Type: BLOOD SPECIMENOrdering Facility: [facility] Address: [address] [place] [address] Performed By: #### 5 8410-2 ####HAND LABORATORYCLIA [id number] [address] Nucleated RBC (Bld) [#/Vol] 10*3/uL Normal <0.01 [facility] Comment on above: Order Comment: Speci men Type: BLOOD SPECIMENOrdering Facility: [facility] Address: [address] [place] [address] Performed By: #### 5 8410-2 ####HAND LABORATORYCLIA [id number] [address] Platelet mean volume (Bld) [Entitic vol] 9.0 fL Normal 9.0-12.7 [facility] Comment on above: Order Comment: Speci men Type: BLOOD SPECIMENOrdering Facility: [facility] Address: [address] [place] [address] Performed By: #### 5 8410-2 ####HAND LABORATORYCLIA [id number] [address] [place] Platelets (Bld) [#/Vol] 210 10*3/uL Normal 150-400 [facility] Comment on above: Order Comment: Speci men Type: BLOOD SPECIMENOrdering Facility: [facility] Address: [address] [place] [address] Performed By: #### 5 8410-2 ####HAND LABORATORYCLIA [id number] [address] [place] RBC (Bld) [#/Vol] 3.94 10*6/uL Normal 3.90-5.20 [facility] Comment on above: Order Comment: Speci men Type: BLOOD SPECIMENOrdering Facility: [facility] Address: [address] [place] [address] Performed By: #### 5 8410-2 ####HAND LABORATORYCLIA [id number] [address] OF [facility] WBC (Bld) [#/Vol] 7.53 10*3/uL Normal 3.70-11.00 [facility] Comment on above: Order Comment: Speci men Type: BLOOD SPECIMENOrdering Facility: [facility] Address: [address] [place] [address] Performed By: #### 5 8410-2 ####HAND LABORATORYCLIA [id number] [address] Comprehensive metabolic 2000 panelon 12-07-2023 Albumin [Mass/Vol] 3.6 g/dL Low 3.9-4.9 [facility] Comment on above: Order Comment: Speci men Type: BLOOD SPECIMENOrdering Facility: [facility] Address: [address] [place] [address] Performed By: #### 2 4323-8 ####HAND LABORATORYCLIA [id number] [address] ALP [Catalytic activity/Vol] 178 U/L High 34-123 [facility] Comment on above: Order Comment: Speci men Type: BLOOD SPECIMENOrdering Facility: [facility] Address: [address] [place] [address] Performed By: #### 2 4323-8 ####HAND LABORATORYCLIA [id number] [place] [address] [place] ALT [Catalytic activity/Vol] 10 U/L Normal 7-38 [facility] Comment on above: Order Comment: Speci men Type: BLOOD SPECIMENOrdering Facility: [facility] Address: [address] [place] [address] Performed By: #### 2 4323-8 ####HAND LABORATORYCLIA [id number] [place] [address] [place] Anion gap [Moles/Vol] 6 mmol/L Low 9-18 [facility] Comment on above: Order Comment: Speci men Type: BLOOD SPECIMENOrdering Facility: [facility] Address: [address] [place] [address] Performed By: #### 2 4323-8 ####HAND LABORATORYCLIA [id number] [address] [place] AST [Catalytic activity/Vol] 16 U/L Normal 13-35 [facility] Comment on above: Order Comment: Speci men Type: BLOOD SPECIMENOrdering Facility: [facility] Address: [address] [place] [address] Performed By: #### 2 4323-8 ####HAND LABORATORYCLIA [id number] [place] [address] [place] Bilirubin [Mass/Vol] 0.2 mg/dL Normal 0.2-1.3 [facility] Comment on above: Order Comment: Speci men Type: BLOOD SPECIMENOrdering Facility: [facility] Address: [address] [place] [address] Performed By: #### 2 4323-8 ####HAND LABORATORYCLIA [id number] [place] [address] [place] Calcium [Mass/Vol] 9.6 mg/dL Normal 8.5-10.2 [facility] Comment on above: Order Comment: Speci men Type: BLOOD SPECIMENOrdering Facility: [facility] Address: [address] [place] [address] Performed By: #### 2 4323-8 ####HAND LABORATORYCLIA [id number] [place] [address] [place] Chloride [Moles/Vol] 100 mmol/L Normal 97-105 [facility] Comment on above: Order Comment: Speci men Type: BLOOD SPECIMENOrdering Facility: [facility] Address: [address] [place] [address] Performed By: #### 2 4323-8 ####HAND LABORATORYCLIA [id number] [place] [address] [place] CO2 [Moles/Vol] 34 mmol/L High 22-30 [facility] Comment on above: Order Comment: Speci men Type: BLOOD SPECIMENOrdering Facility: [facility] Address: [address] [place] [address] Performed By: #### 2 4323-8 ####HAND LABORATORYCLIA [id number] [place] [address] [place] Creatinine [Mass/Vol] 1.12 mg/dL High 0.58-0.96 [facility] Comment on above: Order Comment: Speci men Type: BLOOD SPECIMENOrdering Facility: [facility] Address: [address] [place] [address] Performed By: #### 2 4323-8 ####HAND LABORATORYCLIA [id number] [address] Creatinine and Glomerular filtration rate.predicted panel (S/P/Bld) 54 mL/min/1.73m??? Low >=60 [facility] Comment on above: Order Comment: Speci men Type: BLOOD SPECIMENOrdering Facility: [facility] Address: [address] [place] [address] Result Comment: Sweta mated Glomerular Filtration Rate [...] Performed By: #### 2 4323-8 ####HAND LABORATORYCLIA [id number] [place] [address] [place] Glucose [Mass/Vol] 90 mg/dL Normal 74-99 [facility] Comment on above: Order Comment: Cesar piper Type: BLOOD SPECIMENOrdering Facility: [facility] Address: [address] [place] [address] Result Comment: The [place] Diabetes [employer] (ADA) provides guidance for cutoff [...] Standards of Medical Care in Diabetes 2016, [place] [employer]. Diabetes Care. 2016.39(Suppl 1). Performed By: #### 2 4323-8 ####HAND LABORATORYCLIA [id number] [place] [address] [place] Potassium [Moles/Vol] 3.9 mmol/L Normal 3.7-5.1 [facility] Comment on above: Order Comment: Cesar piper Type: BLOOD SPECIMENOrdering Facility: [facility] Address: [address] [place] [address] Performed By: #### 2 4323-8 ####HAND LABORATORYCLIA [id number] [place] [id number] [place] Protein [Mass/Vol] 6.3 g/dL Normal 6.3-8.0 [facility] Comment on above: Order Comment: Cesar piper Type: BLOOD SPECIMENOrdering Facility: [facility] Address: [address] [place] [address] Performed By: #### 2 4323-8 ####HAND LABORATORYCLIA [id number] [address] [place] [facility] Sodium [Moles/Vol] 140 mmol/L Normal 136-144 [facility] Comment on above: Order Comment: Speci men Type: BLOOD SPECIMENOrdering Facility: [facility] Address: [address] [place] [address] Performed By: #### 2 4323-8 ####HAND LABORATORYCLIA [id number] [address] [place] [facility] Urea nitrogen [Mass/Vol] 16 mg/dL Normal 7-21 [facility] Comment on above: Order Comment: Speci men Type: BLOOD SPECIMENOrdering Facility: [facility] Address: [address] [place] [address] Performed By: #### 2 4323-8 ####HAND LABORATORYCLIA [id number] [address] [place] ERCPon 12-07-2023 ERCP Normal [facility] NURSING PROGon 12-07-2023 NURSING PROG Normal [facility] NUTRITIONon 12-07-2023 NUTRITION Normal [facility] THERAPY NTon 12-07-2023 THERAPY NT Normal [facility] THERAPY NT [facility] XR FLUOROSCOPYon 12-07-2023 XR FLUOROSCOPY Normal [facility] CBC panel Auto (Bld)on 12-05 Erythrocyte distribution width (RBC) [Ratio] 13.4 % Normal 11.5-15.0 [facility] Comment on above: Order Comment: Speci men Type: BLOOD SPECIMENOrdering Facility: [facility] Address: [address] [place] [address] Performed By: #### 5 8410-2 ####HAND LABORATORYCLIA [id number] [address] [place] [facility] Hematocrit (Bld) [Volume fraction] 40.6 % Normal 36.0-46.0 [facility] Comment on above: Order Comment: Speci men Type: BLOOD SPECIMENOrdering Facility: [facility] Address: [address] [place] [address] Performed By: #### 5 8410-2 ####HAND LABORATORYCLIA [id number] [address] Hemoglobin (Bld) [Mass/Vol] 12.8 g/dL Normal 11.5-15. 5 [facility] Comment on above: Order Comment: Speci men Type: BLOOD SPECIMENOrdering Facility: [facility] Address: [address] [place] [address] Performed By: #### 5 8410-2 ####HAND LABORATORYCLIA [id number] [address] MCH (RBC) [Entitic mass] 30.2 pg Normal 26.0-34.0 [facility] Comment on above: Order Comment: Speci men Type: BLOOD SPECIMENOrdering Facility: [facility] Address: [address] [place] [address] Performed By: #### 5 8410-2 ####HAND LABORATORYCLIA [id number] [address] MCHC (RBC) [Mass/Vol] 31.5 g/dL Normal 30.5-36.0 [facility] Comment on above: Order Comment: Speci men Type: BLOOD SPECIMENOrdering Facility: [facility] Address: [address] [place] [address] Performed By: #### 5 8410-2 ####HAND LABORATORYCLIA [id number] [address] MCV (RBC) [Entitic vol] 95.8 fL Normal 80.0-100.0 [facility] Comment on above: Order Comment: Speci men Type: BLOOD SPECIMENOrdering Facility: [facility] Address: [address] [place] [address] Performed By: #### 5 8410-2 ####HAND LABORATORYCLIA [id number] [address] Nucleated RBC (Bld) [#/Vol] 10*3/uL Normal <0.01 [facility] Comment on above: Order Comment: Speci men Type: BLOOD SPECIMENOrdering Facility: [facility] Address: [address] [place] [address] Performed By: #### 5 8410-2 ####HAND LABORATORYCLIA [id number] [place] [address] [place] Platelet mean volume (Bld) [Entitic vol] 8.9 fL Low 9.0-12.7 [facility] Comment on above: Order Comment: Speci men Type: BLOOD SPECIMENOrdering Facility: [facility] Address: [address] [place] [address] Performed By: #### 5 8410-2 ####HAND LABORATORYCLIA [id number] [address] [place] Platelets (Bld) [#/Vol] 231 10*3/uL Normal 150-400 [facility] Comment on above: Order Comment: Speci men Type: BLOOD SPECIMENOrdering Facility: [facility] Address: [address] [place] [address] Performed By: #### 5 8410-2 ####[facility] LABORATORYCLIA [id number] [address] RBC (Bld) [#/Vol] 4.24 10*6/uL Normal 3.90-5.20 [facility] Comment on above: Order Comment: Speci men Type: BLOOD SPECIMENOrdering Facility: [facility] Address: [address] [place] [address] Performed By: #### 5 8410-2 ####[facility] LABORATORYCLIA [id number] [address] [place] WBC (Bld) [#/Vol] 7.50 10*3/uL Normal 3.70-11.00 [facility] Comment on above: Order Comment: Speci men Type: BLOOD SPECIMENOrdering Facility: [facility] Address: [address] [place] [address] Performed By: #### 5 8410-2 ####HAND LABORATORYCLIA [id number] [address] Comprehensive metabolic 2000 panelon 12-06-2023 Albumin [Mass/Vol] 3.9 g/dL Normal 3.9-4.9 [facility] Comment on above: Order Comment: Speci men Type: BLOOD SPECIMENOrdering Facility: [facility] Address: [address] [place] [address] Performed By: #### 2 4323-8 ####HAND LABORATORYCLIA [id number] [address] [place] ALP [Catalytic activity/Vol] 182 U/L High 34-123 [facility] Comment on above: Order Comment: Speci men Type: BLOOD SPECIMENOrdering Facility: [facility] Address: [address] [place] [address] Performed By: #### 2 4323-8 ####HAND LABORATORYCLIA [id number] [address] [place] ALT [Catalytic activity/Vol] 13 U/L Normal 7-38 [facility] Comment on above: Order Comment: Speci men Type: BLOOD SPECIMENOrdering Facility: [facility] Address: [address] [place] [address] Performed By: #### 2 4323-8 ####HAND LABORATORYCLIA [id number] [place] [address] [place] Anion gap [Moles/Vol] 8 mmol/L Low 9-18 [facility] Comment on above: Order Comment: Speci men Type: BLOOD SPECIMENOrdering Facility: [facility] Address: [address] [place] [address] Performed By: #### 2 4323-8 ####HAND LABORATORYCLIA [id number] [address] [place] AST [Catalytic activity/Vol] 20 U/L Normal 13-35 [facility] Comment on above: Order Comment: Speci men Type: BLOOD SPECIMENOrdering Facility: [facility] Address: [address] [place] [address] Performed By: #### 2 4323-8 ####HAND LABORATORYCLIA [id number] [place] [address] [place] Bilirubin [Mass/Vol] 0.2 mg/dL Normal 0.2-1.3 [facility] Comment on above: Order Comment: Speci men Type: BLOOD SPECIMENOrdering Facility: [facility] Address: [address] [place] [address] Performed By: #### 2 4323-8 ####HAND LABORATORYCLIA [id number] [place] [address] [place] Calcium [Mass/Vol] 9.4 mg/dL Normal 8.5-10.2 [facility] Comment on above: Order Comment: Speci men Type: BLOOD SPECIMENOrdering Facility: [facility] Address: [address] [place] [address] Performed By: #### 2 4323-8 ####HAND LABORATORYCLIA [id number] [place] [address] [place] Chloride [Moles/Vol] 102 mmol/L Normal 97-105 [facility] Comment on above: Order Comment: Speci men Type: BLOOD SPECIMENOrdering Facility: [facility] Address: [address] [place] [address] Performed By: #### 2 4323-8 ####HAND LABORATORYCLIA [id number] [place] [address] [place] CO2 [Moles/Vol] 32 mmol/L High 22-30 [facility] Comment on above: Order Comment: Speci men Type: BLOOD SPECIMENOrdering Facility: [facility] Address: [address] [place] [address] Performed By: #### 2 4323-8 ####HAND LABORATORYCLIA [id number] [place] [address] [place] Creatinine [Mass/Vol] 0.94 mg/dL Normal 0.58-0.96 [facility] Comment on above: Order Comment: Speci men Type: BLOOD SPECIMENOrdering Facility: [facility] Address: [address] [place] [address] Performed By: #### 2 4323-8 ####HAND LABORATORYCLIA [id number] [address] [place] Creatinine and Glomerular filtration rate.predicted panel (S/P/Bld) 67 mL/min/1.73m??? Normal >=60 [facility] Comment on above: Order Comment: Speci men Type: BLOOD SPECIMENOrdering Facility: [facility] Address: [address] [place] [address] Result Comment: Sweta mated Glomerular Filtration Rate [...] actual GFR. Performed By: #### 2 4323-8 ####[facility] LABORATORYCLIA [id number] [place] [address] [place] Glucose [Mass/Vol] 106 mg/dL High 74-99 [facility] Comment on above: Order Comment: Cesar piper Type: BLOOD SPECIMENOrdering Facility: [facility] Address: [address] [place] [address] Result Comment: The [place] [employer] (ADA) provides guidance for cutoff [...] Standards of Medical Care in Diabetes 2016, [place] [employer]. Diabetes Care. 2016.39(Suppl 1). Performed By: #### 2 4323-8 ####[facility] LABORATORYCLIA [id number] [place] [address] [place] Potassium [Moles/Vol] 3.7 mmol/L Normal 3.7-5.1 [facility] Comment on above: Order Comment: Cesar piper Type: BLOOD SPECIMENOrdering Facility: [facility] Address: [address] [place], [place] [address] Performed By: #### 2 4323-8 ####[facility] LABORATORYCLIA [id number] [place] [id number] [place] Protein [Mass/Vol] 6.6 g/dL Normal 6.3-8.0 [facility] Comment on above: Order Comment: Speci men Type: BLOOD SPECIMENOrdering Facility: [facility] Address: [address] [place] [address] [place] [address] Performed By: #### 2 4323-8 ####HAND LABORATORYCLIA [id number] [place] [id number] [place] Sodium [Moles/Vol] 142 mmol/L Normal 136-144 [facility] Comment on above: Order Comment: Speci men Type: BLOOD SPECIMENOrdering Facility: [facility] Address: [address] [place] [address] Performed By: #### 2 4323-8 ####HAND LABORATORYCLIA [id number] [address] [place] Urea nitrogen [Mass/Vol] 12 mg/dL Normal 7-21 [facility] Comment on above: Order Comment: Speci men Type: BLOOD SPECIMENOrdering Facility: [facility] Address: [address] [place] [address] Performed By: #### 2 4323-8 ####HAND LABORATORYCLIA [id number] [place] [id number] [facility] [place] THERAPY NTon 12-06-2023 THERAPY NT Normal [facility] THERAPY NT Normal [facility] CBC panel Auto (Bld)on 12-04 Erythrocyte distribution width (RBC) [Ratio] 13.3 % Normal 11.5-15.0 [facility] Comment on above: Order Comment: Speci men Type: BLOOD SPECIMENOrdering Facility: [facility] Address: [address] [place] [address] Performed By: #### 5 8410-2 ####HAND LABORATORYCLIA [id number] [address] [place] Hematocrit (Bld) [Volume fraction] 39.1 % Normal 36.0-46.0 [facility] Comment on above: Order Comment: Speci men Type: BLOOD SPECIMENOrdering Facility: [facility] Address: [address] [place] [address] Performed By: #### 5 8410-2 ####HAND LABORATORYCLIA [id number] [address] OF [facility] Hemoglobin (Bld) [Mass/Vol] 12.6 g/dL Normal 11.5-15. 5 [facility] Comment on above: Order Comment: Speci men Type: BLOOD SPECIMENOrdering Facility: [facility] Address: [address] [place] [address] Performed By: #### 5 8410-2 ####HAND LABORATORYCLIA [id number] [address] MCH (RBC) [Entitic mass] 30.7 pg Normal 26.0-34.0 [facility] Comment on above: Order Comment: Speci men Type: BLOOD SPECIMENOrdering Facility: [facility] Address: [address] [place] [address] Performed By: #### 5 8410-2 ####HAND LABORATORYCLIA [id number] [address] MCHC (RBC) [Mass/Vol] 32.2 g/dL Normal 30.5-36.0 [facility] Comment on above: Order Comment: Speci men Type: BLOOD SPECIMENOrdering Facility: [facility] Address: [address] [place] [address] Performed By: #### 5 8410-2 ####HAND LABORATORYCLIA [id number] [address] MCV (RBC) [Entitic vol] 95.1 fL Normal 80.0-100.0 [facility] Comment on above: Order Comment: Speci men Type: BLOOD SPECIMENOrdering Facility: [facility] Address: [address] [place] [address] Performed By: #### 5 8410-2 ####HAND LABORATORYCLIA [id number] [address] Nucleated RBC (Bld) [#/Vol] 10*3/uL Normal <0.01 [facility] Comment on above: Order Comment: Speci men Type: BLOOD SPECIMENOrdering Facility: [facility] Address: [address] [place], [place] [address], [place] [address] Performed By: #### 5 8410-2 ####HAND LABORATORYCLIA [id number] [place] [address] [place] Platelet mean volume (Bld) [Entitic vol] 9.4 fL Normal 9.0-12.7 [facility] Comment on above: Order Comment: Speci men Type: BLOOD SPECIMENOrdering Facility: [facility] Address: [facility] [address] [place] [address] Performed By: #### 5 8410-2 ####HAND LABORATORYCLIA [id number] [place] [address] [place] Platelets (Bld) [#/Vol] 219 10*3/uL Normal 150-400 [facility] Comment on above: Order Comment: Speci men Type: BLOOD SPECIMENOrdering Facility: [facility] Address: [facility] [address] [place] [address] Performed By: #### 5 8410-2 ####HAND LABORATORYCLIA [id number] [place] [address] [place] RBC (Bld) [#/Vol] 4.11 10*6/uL Normal 3.90-5.20 [facility] Comment on above: Order Comment: Speci men Type: BLOOD SPECIMENOrdering Facility: [facility] Address: [facility] [address] [place] [address] Performed By: #### 5 8410-2 ####HAND LABORATORYCLIA [id number] [place] [id number] [place] WBC (Bld) [#/Vol] 6.13 10*3/uL Normal 3.70-11.00 [facility] Comment on above: Order Comment: Speci men Type: BLOOD SPECIMENOrdering Facility: [facility] Address: [facility] [address] [place] [address] Performed By: #### 5 8410-2 ####HAND LABORATORYCLIA [id number] [place] [id number] [place] Comprehensive metabolic 2000 panelon 12-05-2023 Albumin [Mass/Vol] 3.6 g/dL Low 3.9-4.9 [facility] Comment on above: Order Comment: Speci men Type: BLOOD SPECIMENOrdering Facility: [facility] Address: [address] [place] [address] Performed By: #### 2 4323-8 ####HAND LABORATORYCLIA [id number] [address] [place] ALP [Catalytic activity/Vol] 170 U/L High 34-123 [facility] Comment on above: Order Comment: Speci men Type: BLOOD SPECIMENOrdering Facility: [facility] Address: [address] [place] [address] Performed By: #### 2 4323-8 ####HAND LABORATORYCLIA [id number] [address] ALT [Catalytic activity/Vol] 13 U/L Normal 7-38 [facility] Comment on above: Order Comment: Speci men Type: BLOOD SPECIMENOrdering Facility: [facility] Address: [address] [place] [address] Performed By: #### 2 4323-8 ####HAND LABORATORYCLIA [id number] [place] [address] [place] Anion gap [Moles/Vol] 7 mmol/L Low 9-18 [facility] Comment on above: Order Comment: Speci men Type: BLOOD SPECIMENOrdering Facility: [facility] Address: [address] [place] [address] Performed By: #### 2 4323-8 ####HAND LABORATORYCLIA [id number] [address] AST [Catalytic activity/Vol] 20 U/L Normal 13-35 [facility] Comment on above: Order Comment: Speci men Type: BLOOD SPECIMENOrdering Facility: [facility] Address: [address] [place] [address] Performed By: #### 2 4323-8 ####HAND LABORATORYCLIA [id number] [place] [address] [place] Bilirubin [Mass/Vol] 0.2 mg/dL Normal 0.2-1.3 [facility] Comment on above: Order Comment: Speci men Type: BLOOD SPECIMENOrdering Facility: [facility] Address: [address] [place] [address] Performed By: #### 2 4323-8 ####HAND LABORATORYCLIA [id number] [place] [address] [place] Calcium [Mass/Vol] 9.6 mg/dL Normal 8.5-10.2 [facility] Comment on above: Order Comment: Speci men Type: BLOOD SPECIMENOrdering Facility: [facility] Address: [address] [place] [address] Performed By: #### 2 4323-8 ####HAND LABORATORYCLIA [id number] [place] [address] [place] Chloride [Moles/Vol] 103 mmol/L Normal 97-105 [facility] Comment on above: Order Comment: Speci men Type: BLOOD SPECIMENOrdering Facility: [facility] Address: [address] [place] [address] Performed By: #### 2 4323-8 ####HAND LABORATORYCLIA [id number] [place] [address] [place] CO2 [Moles/Vol] 32 mmol/L High 22-30 [facility] Comment on above: Order Comment: Speci men Type: BLOOD SPECIMENOrdering Facility: [facility] Address: [address] [place] [address] Performed By: #### 2 4323-8 ####HAND LABORATORYCLIA [id number] [place] [address] [place] Creatinine [Mass/Vol] 0.99 mg/dL High 0.58-0.96 [facility] Comment on above: Order Comment: Speci men Type: BLOOD SPECIMENOrdering Facility: [facility] Address: [address] [place] [address] Performed By: #### 2 4323-8 ####HAND LABORATORYCLIA [id number] [place] [address] [place] Creatinine and Glomerular filtration rate.predicted panel (S/P/Bld) 63 mL/min/1.73m??? Normal >=60 [facility] Comment on above: Order Comment: Cesar piper Type: BLOOD SPECIMENOrdering Facility: [facility] Address: [address] [place] [address] Result Comment: Sweta mated Glomerular Filtration Rate [...] actual GFR. Performed By: #### 2 4323-8 ####[facility] LABORATORYCLIA [id number] [place] [address] [place] Glucose [Mass/Vol] 95 mg/dL Normal 74-99 [facility] Comment on above: Order Comment: Cesar piper Type: BLOOD SPECIMENOrdering Facility: [facility] Address: [address] [place] [address] Result Comment: The [place] [employer] (ADA) provides guidance for cutoff [...] Standards of Medical Care in Diabetes 2016, [place] [employer]. Diabetes Care. 2016.39(Suppl 1). Performed By: #### 2 4323-8 ####HAND LABORATORYCLIA [id number] [place] [id number] [place] Potassium [Moles/Vol] 3.9 mmol/L Normal 3.7-5.1 [facility] Comment on above: Order Comment: Cesar piper Type: BLOOD SPECIMENOrdering Facility: [facility] Address: [address] [place] [id number] Performed By: #### 2 4323-8 ####HAND LABORATORYCLIA [id number] [address] [place] Protein [Mass/Vol] 6.4 g/dL Normal 6.3-8.0 [facility] Comment on above: Order Comment: Speci men Type: BLOOD SPECIMENOrdering Facility: [facility] Address: [address] [place] [address] Performed By: #### 2 4323-8 ####HAND LABORATORYCLIA [id number] [place] [address] [place] Sodium [Moles/Vol] 142 mmol/L Normal 136-144 [facility] Comment on above: Order Comment: Speci men Type: BLOOD SPECIMENOrdering Facility: [facility] Address: [address] [place] [address] Performed By: #### 2 4323-8 ####HAND LABORATORYCLIA [id number] [address] [place] Urea nitrogen [Mass/Vol] 13 mg/dL Normal 7-21 [facility] Comment on above: Order Comment: Speci men Type: BLOOD SPECIMENOrdering Facility: [facility] Address: [address] [place] [address] Performed By: #### 2 4323-8 ####HAND LABORATORYCLIA [id number] [address] [place] CONSULT PROGon 12-04-2023 CONSULT PROG Normal [facility] CBC panel Auto (Bld)on 12-02 Erythrocyte distribution width (RBC) [Ratio] 12.8 % Normal 11.5-15.0 [facility] Comment on above: Order Comment: Speci men Type: BLOOD SPECIMENOrdering Facility: [facility] Address: [address] [place] [address] Performed By: #### 5 8410-2 ####HAND LABORATORYCLIA [id number] [address] [place] Hematocrit (Bld) [Volume fraction] 36.5 % Normal 36.0-46.0 [facility] Comment on above: Order Comment: Speci men Type: BLOOD SPECIMENOrdering Facility: [facility] Address: [address] [place] [address] Performed By: #### 5 8410-2 ####HAND LABORATORYCLIA [id number] [address] Hemoglobin (Bld) [Mass/Vol] 11.7 g/dL Normal 11.5-15. 5 [facility] Comment on above: Order Comment: Speci men Type: BLOOD SPECIMENOrdering Facility: [facility] Address: [address] [place] [address] Performed By: #### 5 8410-2 ####HAND LABORATORYCLIA [id number] [address] MCH (RBC) [Entitic mass] 29.5 pg Normal 26.0-34.0 [facility] Comment on above: Order Comment: Speci men Type: BLOOD SPECIMENOrdering Facility: [facility] Address: [address] [place] [address] Performed By: #### 5 8410-2 ####HAND LABORATORYCLIA [id number] [address] MCHC (RBC) [Mass/Vol] 32.1 g/dL Normal 30.5-36.0 [facility] Comment on above: Order Comment: Speci men Type: BLOOD SPECIMENOrdering Facility: [facility] Address: [address] [place] [address] Performed By: #### 5 8410-2 ####HAND LABORATORYCLIA [id number] [address] MCV (RBC) [Entitic vol] 92.2 fL Normal 80.0-100.0 [facility] Comment on above: Order Comment: Speci men Type: BLOOD SPECIMENOrdering Facility: [facility] Address: [address] [place] [address] Performed By: #### 5 8410-2 ####HAND LABORATORYCLIA [id number] [address] Nucleated RBC (Bld) [#/Vol] 10*3/uL Normal <0.01 [facility] Comment on above: Order Comment: Speci men Type: BLOOD SPECIMENOrdering Facility: [facility] Address: [address] [place] [address] Performed By: #### 5 8410-2 ####HAND LABORATORYCLIA [id number] [place] [address] [place] Platelet mean volume (Bld) [Entitic vol] 9.2 fL Normal 9.0-12.7 [facility] Comment on above: Order Comment: Speci men Type: BLOOD SPECIMENOrdering Facility: [facility] Address: [address] [place] [address] Performed By: #### 5 8410-2 ####HAND LABORATORYCLIA [id number] [place] [address] [place] Platelets (Bld) [#/Vol] 190 10*3/uL Normal 150-400 [facility] Comment on above: Order Comment: Speci men Type: BLOOD SPECIMENOrdering Facility: [facility] Address: [address] [place] [address] Performed By: #### 5 8410-2 ####HAND LABORATORYCLIA [id number] [place] [address] [place] RBC (Bld) [#/Vol] 3.96 10*6/uL Normal 3.90-5.20 [facility] Comment on above: Order Comment: Speci men Type: BLOOD SPECIMENOrdering Facility: [facility] Address: [address] [place] [address] Performed By: #### 5 8410-2 ####HAND LABORATORYCLIA [id number] [place] [address] [place] WBC (Bld) [#/Vol] 6.35 10*3/uL Normal 3.70-11.00 [facility] Comment on above: Order Comment: Speci men Type: BLOOD SPECIMENOrdering Facility: [facility] Address: [address] [place] [address] Performed By: #### 5 8410-2 ####HAND LABORATORYCLIA [id number] [address] [place] CONSULT PROGon 12-03-2023 CONSULT PROG Normal [facility] Comprehensive metabolic 2000 panelon 12-03-2023 Albumin [Mass/Vol] 3.6 g/dL Low 3.9-4.9 [facility] Comment on above: Order Comment: Speci men Type: BLOOD SPECIMENOrdering Facility: [facility] Address: [address] [place] [address] Performed By: #### 2 4323-8 ####HAND LABORATORYCLIA [id number] [address] [place] ALP [Catalytic activity/Vol] 137 U/L High 34-123 [facility] Comment on above: Order Comment: Speci men Type: BLOOD SPECIMENOrdering Facility: [facility] Address: [address] [place] [address] Performed By: #### 2 4323-8 ####HAND LABORATORYCLIA [id number] [address] ALT [Catalytic activity/Vol] 9 U/L Normal 7-38 [facility] Comment on above: Order Comment: Speci men Type: BLOOD SPECIMENOrdering Facility: [facility] Address: [address] [place] [address] Performed By: #### 2 4323-8 ####HAND LABORATORYCLIA [id number] [address] STATES [facility] Anion gap [Moles/Vol] 6 mmol/L Low 9-18 [facility] Comment on above: Order Comment: Speci men Type: BLOOD SPECIMENOrdering Facility: [facility] Address: [address] [place] [address] Performed By: #### 2 4323-8 ####HAND LABORATORYCLIA [id number] [address] AST [Catalytic activity/Vol] 18 U/L Normal 13-35 [facility] Comment on above: Order Comment: Speci men Type: BLOOD SPECIMENOrdering Facility: [facility] Address: [address] [place] [address] Performed By: #### 2 4323-8 ####HAND LABORATORYCLIA [id number] [address] [place] Bilirubin [Mass/Vol] 0.4 mg/dL Normal 0.2-1.3 [facility] Comment on above: Order Comment: Speci men Type: BLOOD SPECIMENOrdering Facility: [facility] Address: [address] [place] [address] Performed By: #### 2 4323-8 ####HAND LABORATORYCLIA [id number] [place] [address] [place] Calcium [Mass/Vol] 9.4 mg/dL Normal 8.5-10.2 [facility] Comment on above: Order Comment: Speci men Type: BLOOD SPECIMENOrdering Facility: [facility] Address: [address] [place] [address] Performed By: #### 2 4323-8 ####HAND LABORATORYCLIA [id number] [place] [address] [place] Chloride [Moles/Vol] 101 mmol/L Normal 97-105 [facility] Comment on above: Order Comment: Speci men Type: BLOOD SPECIMENOrdering Facility: [facility] Address: [address] [place] [address] Performed By: #### 2 4323-8 ####HAND LABORATORYCLIA [id number] [place] [address] [place] CO2 [Moles/Vol] 33 mmol/L High 22-30 [facility] Comment on above: Order Comment: Speci men Type: BLOOD SPECIMENOrdering Facility: [facility] Address: [address] [place] [address] Performed By: #### 2 4323-8 ####HAND LABORATORYCLIA [id number] [place] [address] [place] Creatinine [Mass/Vol] 0.98 mg/dL High 0.58-0.96 [facility] Comment on above: Order Comment: Speci men Type: BLOOD SPECIMENOrdering Facility: [facility] Address: [address] [place] [address] Performed By: #### 2 4323-8 ####HAND LABORATORYCLIA [id number] [place] [address] [place] Creatinine and Glomerular filtration rate.predicted panel (S/P/Bld) 63 mL/min/1.73m??? Normal >=60 [facility] Comment on above: Order Comment: Cesar piepr Type: BLOOD SPECIMENOrdering Facility: [facility] Address: [address] [place] [address] Result Comment: Sweta mated Glomerular Filtration Rate [...] Performed By: #### 2 4323-8 ####HAND LABORATORYCLIA [id number] [place] [id number] [place] Glucose [Mass/Vol] 94 mg/dL Normal 74-99 [facility] Comment on above: Order Comment: Cesar piper Type: BLOOD SPECIMENOrdering Facility: [facility] Address: [address] [place] [address] Result Comment: The [place] [employer] (ADA) provides guidance for cutoff [...] Standards of Medical Care in Diabetes 2016, [place] [employer]. Diabetes Care. 2016.39(Suppl 1). Performed By: #### 2 4323-8 ####[facility] LABORATORYCLIA [id number] [place] [address] [place] Potassium [Moles/Vol] 3.5 mmol/L Low 3.7-5.1 [facility] Comment on above: Order Comment: Cesar piper Type: BLOOD SPECIMENOrdering Facility: [facility] Address: [address] [place] [id number] Performed By: #### 2 4323-8 ####HAND LABORATORYCLIA [id number] [address] STATES [facility] Protein [Mass/Vol] 5.9 g/dL Low 6.3-8.0 [facility] Comment on above: Order Comment: Speci men Type: BLOOD SPECIMENOrdering Facility: [facility] Address: [address] [place] [address] Performed By: #### 2 4323-8 ####HAND LABORATORYCLIA [id number] [address] [place] Sodium [Moles/Vol] 140 mmol/L Normal 136-144 [facility] Comment on above: Order Comment: Speci men Type: BLOOD SPECIMENOrdering Facility: [facility] Address: [address] [place] [address] Performed By: #### 2 4323-8 ####HAND LABORATORYCLIA [id number] [address] [place] Urea nitrogen [Mass/Vol] 10 mg/dL Normal 7-21 [facility] Comment on above: Order Comment: Speci men Type: BLOOD SPECIMENOrdering Facility: [facility] Address: [address] [place] [address] Performed By: #### 2 4323-8 ####HAND LABORATORYCLIA [id number] [address] [place] CASE MANAGEMon 12-02-2023 CASE MANAGEM Normal [facility] CBC panel Auto (Bld)on 12-01 Erythrocyte distribution width (RBC) [Ratio] 12.8 % Normal 11.5-15.0 [facility] Comment on above: Order Comment: Speci men Type: BLOOD SPECIMENOrdering Facility: [facility] Address: [address] [place] [address] Performed By: #### 5 8410-2 ####HAND LABORATORYCLIA [id number] [address] [place] Hematocrit (Bld) [Volume fraction] 37.8 % Normal 36.0-46.0 [facility] Comment on above: Order Comment: Speci men Type: BLOOD SPECIMENOrdering Facility: [facility] Address: [address] [place] [address] Performed By: #### 5 8410-2 ####HAND LABORATORYCLIA [id number] [address] Hemoglobin (Bld) [Mass/Vol] 12.5 g/dL Normal 11.5-15. 5 [facility] Comment on above: Order Comment: Speci men Type: BLOOD SPECIMENOrdering Facility: [facility] Address: [address] [place] [address] Performed By: #### 5 8410-2 ####HAND LABORATORYCLIA [id number] [address] MCH (RBC) [Entitic mass] 30.9 pg Normal 26.0-34.0 [facility] Comment on above: Order Comment: Speci men Type: BLOOD SPECIMENOrdering Facility: [facility] Address: [address] [place] [address] Performed By: #### 5 8410-2 ####HAND LABORATORYCLIA [id number] [address] MCHC (RBC) [Mass/Vol] 33.1 g/dL Normal 30.5-36.0 [facility] Comment on above: Order Comment: Speci men Type: BLOOD SPECIMENOrdering Facility: [facility] Address: [address] [place] [address] Performed By: #### 5 8410-2 ####HAND LABORATORYCLIA [id number] [address] MCV (RBC) [Entitic vol] 93.3 fL Normal 80.0-100.0 [facility] Comment on above: Order Comment: Speci men Type: BLOOD SPECIMENOrdering Facility: [facility] Address: [address] [place] [address] Performed By: #### 5 8410-2 ####HAND LABORATORYCLIA [id number] [address] Nucleated RBC (Bld) [#/Vol] 10*3/uL Normal <0.01 [facility] Comment on above: Order Comment: Speci men Type: BLOOD SPECIMENOrdering Facility: [facility] Address: [facility] [place] [address] Performed By: #### 5 8410-2 ####HAND LABORATORYCLIA [id number] [address] Platelet mean volume (Bld) [Entitic vol] 8.9 fL Low 9.0-12.7 [facility] Comment on above: Order Comment: Speci men Type: BLOOD SPECIMENOrdering Facility: [facility] Address: [address] [place] [address] Performed By: #### 5 8410-2 ####HAND LABORATORYCLIA [id number] [address] [place] Platelets (Bld) [#/Vol] 177 10*3/uL Normal 150-400 [facility] Comment on above: Order Comment: Speci men Type: BLOOD SPECIMENOrdering Facility: [facility] Address: [address] [place] [address] Performed By: #### 5 8410-2 ####HAND LABORATORYCLIA [id number] [address] [place] RBC (Bld) [#/Vol] 4.05 10*6/uL Normal 3.90-5.20 [facility] Comment on above: Order Comment: Speci men Type: BLOOD SPECIMENOrdering Facility: [facility] Address: [address] [place] [address] Performed By: #### 5 8410-2 ####HAND LABORATORYCLIA [id number] [address] WBC (Bld) [#/Vol] 5.57 10*3/uL Normal 3.70-11.00 [facility] Comment on above: Order Comment: Speci men Type: BLOOD SPECIMENOrdering Facility: [facility] Address: [address] [place] [address] Performed By: #### 5 8410-2 ####HAND LABORATORYCLIA [id number] [address] [place] CONSULT PROGon 12-02-2023 CONSULT PROG Normal [facility] Comprehensive metabolic 2000 panelon 12-02-2023 Albumin [Mass/Vol] 3.6 g/dL Low 3.9-4.9 [facility] Comment on above: Order Comment: Speci men Type: BLOOD SPECIMENOrdering Facility: [facility] Address: [address] [place] [address] Performed By: #### 2 4323-8 ####HAND LABORATORYCLIA [id number] [place] [address] [place] ALP [Catalytic activity/Vol] 142 U/L High 34-123 [facility] Comment on above: Order Comment: Speci men Type: BLOOD SPECIMENOrdering Facility: [facility] Address: [address] [place] [address] Performed By: #### 2 4323-8 ####HAND LABORATORYCLIA [id number] [place] [address] [place] [Catalytic activity/Vol] 9 U/L Normal 7-38 [facility] Comment on above: Order Comment: Speci men Type: BLOOD SPECIMENOrdering Facility: [facility] Address: [address] [place] [address] Performed By: #### 2 4323-8 ####HAND LABORATORYCLIA [id number] [place] [address] [place] [facility] Anion gap [Moles/Vol] 9 mmol/L Normal 9-18 [facility] Comment on above: Order Comment: Speci men Type: BLOOD SPECIMENOrdering Facility: [facility] Address: [address] [place] [address] Performed By: #### 2 4323-8 ####HAND LABORATORYCLIA [id number] [place] [address] [place] AST [Catalytic activity/Vol] 16 U/L Normal 13-35 [facility] Comment on above: Order Comment: Speci men Type: BLOOD SPECIMENOrdering Facility: [facility] Address: [address] [place] [address] Performed By: #### 2 4323-8 ####HAND LABORATORYCLIA [id number] [place] [address] [place] Bilirubin [Mass/Vol] 0.5 mg/dL Normal 0.2-1.3 [facility] Comment on above: Order Comment: Speci men Type: BLOOD SPECIMENOrdering Facility: [facility] Address: [address] [place] [address] Performed By: #### 2 4323-8 ####HAND LABORATORYCLIA [id number] [place] [address] [place] Calcium [Mass/Vol] 9.0 mg/dL Normal 8.5-10.2 [facility] Comment on above: Order Comment: Speci men Type: BLOOD SPECIMENOrdering Facility: [facility] Address: [address] [place] [address] Performed By: #### 2 4323-8 ####HAND LABORATORYCLIA [id number] [place] [address] [place] Chloride [Moles/Vol] 102 mmol/L Normal 97-105 [facility] Comment on above: Order Comment: Speci men Type: BLOOD SPECIMENOrdering Facility: [facility] Address: [address] [place] [address] Performed By: #### 2 4323-8 ####HAND LABORATORYCLIA [id number] [place] [address] [place] CO2 [Moles/Vol] 31 mmol/L High 22-30 [facility] Comment on above: Order Comment: Speci men Type: BLOOD SPECIMENOrdering Facility: [facility] Address: [address] [place] [address] Performed By: #### 2 4323-8 ####HAND LABORATORYCLIA [id number] [place] [address] [place] Creatinine [Mass/Vol] 0.85 mg/dL Normal 0.58-0.96 [facility] Comment on above: Order Comment: Speci men Type: BLOOD SPECIMENOrdering Facility: [facility] Address: [address] [place] [address] Performed By: #### 2 4323-8 ####HAND LABORATORYCLIA [id number] [place] [id number] [place] Creatinine and Glomerular filtration rate.predicted panel (S/P/Bld) 75 mL/min/1.73m??? Normal >=60 [facility] Comment on above: Order Comment: Cesar piper Type: BLOOD SPECIMENOrdering Facility: [facility] Address: [address] [place] [address] Result Comment: Sweta mated Glomerular Filtration Rate [...] Performed By: #### 2 4323-8 ####HAND LABORATORYCLIA [id number] [place] [id number] [place] Glucose [Mass/Vol] 96 mg/dL Normal 74-99 [facility] Comment on above: Order Comment: Cesar piper Type: BLOOD SPECIMENOrdering Facility: [facility] Address: [address] [place] [address] Result Comment: The [place] [employer] (ADA) provides guidance for cutoff [...] Standards of Medical Care in Diabetes 2016, [place] [employer]. Diabetes Care. 2016.39(Suppl 1). Performed By: #### 2 4323-8 ####[facility] LABORATORYCLIA [id number] [place] [address] [place] Potassium [Moles/Vol] 3.6 mmol/L Low 3.7-5.1 [facility] Comment on above: Order Comment: Speci men Type: BLOOD SPECIMENOrdering Facility: [facility] Address: [address] [place] [address] Performed By: #### 2 4323-8 ####HAND LABORATORYCLIA [id number] [place] [address] [place] Protein [Mass/Vol] 6.3 g/dL Normal 6.3-8.0 [facility] Comment on above: Order Comment: Speci men Type: BLOOD SPECIMENOrdering Facility: [facility] Address: [address] [place] [address] Performed By: #### 2 4323-8 ####HAND LABORATORYCLIA [id number] [place] [address] [place] Sodium [Moles/Vol] 142 mmol/L Normal 136-144 [facility] Comment on above: Order Comment: Speci men Type: BLOOD SPECIMENOrdering Facility: [facility] Address: [address] [place] [address] Performed By: #### 2 4323-8 ####HAND LABORATORYCLIA [id number] [place] [address] [place] Urea nitrogen [Mass/Vol] 10 mg/dL Normal 7-21 [facility] Comment on above: Order Comment: Speci men Type: BLOOD SPECIMENOrdering Facility: [facility] Address: [address] [place] [address] Performed By: #### 2 4323-8 ####HAND LABORATORYCLIA [id number] [place] [address] [place] ALKALINE PHOSPHATASE ISOENZY MES (P)on 12-01-2023 ALK PHOS BONE % 21.2 % Normal 10.7-68.3 [facility] Comment on above: Order Comment: Speci men Type: BLOOD SPECIMENOrdering Facility: [facility] Address: [address] [place] [address] Performed By: #### A LKISOP ####[facility] LABCLIA [id number] [facility] [id number] [address] [place] ALK PHOS LIVER % 39.3 % Normal 26.0-86.2 [facility] Comment on above: Order Comment: Speci men Type: BLOOD SPECIMENOrdering Facility: [facility] Address: [address] [place] [address] Performed By: #### A LKISOP ####[facility] LABCLIA [id number] [address] [place] BONE FRACTION 31.4 U/L Normal 12.9-52.6 [facility] Comment on above: Order Comment: Speci men Type: BLOOD SPECIMENOrdering Facility: [facility] Address: [address] [place] [address] Performed By: #### A LKISOP ####[facility] LABCLIA [id number] [place] [address] [place] INTESTINE FRACTION 58.3 U/L High 0.0-16.3 [facility] Comment on above: Order Comment: Speci men Type: BLOOD SPECIMENOrdering Facility: [facility] Address: [address] [place] [address] Performed By: #### A LKISOP ####[facility] LABCLIA [id number] [address] [place] LIVER FRACTION 58.2 U/L Normal 16.0-69.3 [facility] Comment on above: Order Comment: Speci men Type: BLOOD SPECIMENOrdering Facility: [facility] Address: [address] [place] [address] Performed By: #### A LKISOP ####[facility] LABCLIA [id number] [address] [place] Neutrophils/100 WBC (Bld) 39.4 % High 0.0-24.2 [facility] Comment on above: Order Comment: Speci men Type: BLOOD SPECIMENOrdering Facility: [facility] Address: [address] [place] [address] Performed By: #### A LKISOP ####[facility] LABCLIA [id number] [place] [id number] [place] ALLIED HEALTHon 12-01-2023 ALLIED HEALTH Normal [facility] ALLIED HEALTH Normal [facility] ALLIED HEALTH Normal [facility] ALP SerPl-cCncon 12-01-2023 ALP [Catalytic activity/Vol] 148 U/L High 34-123 [facility] Comment on above: Order Comment: Speci men Type: BLOOD SPECIMENOrdering Facility: [facility] Address: [address] [place] [address] Performed By: #### 6 768-6 ####[facility] LABCLIA [id number] [address] [place] CASE MGT INIT [facility] 2023 CASE MGT INIT [facility] CBC W Auto Differential pane l (Bld)on 12-01-2023 Basophils (Bld) [#/Vol] 0.07 10*3/uL Normal <0.11 [facility] Comment on above: Order Comment: Speci men Type: BLOOD SPECIMENOrdering Facility: [facility] Address: [address] [place] [address] Performed By: #### 5 7021-8 ####HAND LABORATORYCLIA [id number] [place] [address] [place] Basophils/100 WBC (Bld) 1.0 % Normal [facility] Comment on above: Order Comment: Speci men Type: BLOOD SPECIMENOrdering Facility: [facility] Address: [address] [place] [address] Performed By: #### 5 7021-8 ####HAND LABORATORYCLIA [id number] [place] [address] [place] Differential cell count method Nom (Bld) Auto Normal [facility] Comment on above: Order Comment: Speci men Type: BLOOD SPECIMENOrdering Facility: [facility] Address: [address] [place] [address] Performed By: #### 5 7021-8 ####HAND LABORATORYCLIA [id number] [place] [address] [place] Eosinophils (Bld) [#/Vol] 1.23 10*3/uL High <0.46 [facility] Comment on above: Order Comment: Speci men Type: BLOOD SPECIMENOrdering Facility: [facility] Address: [address] [place] [address] Performed By: #### 5 7021-8 ####HAND LABORATORYCLIA [id number] [address] [place] Eosinophils/100 WBC (Bld) 17.1 % Normal [facility] Comment on above: Order Comment: Speci men Type: BLOOD SPECIMENOrdering Facility: [facility] Address: [address] [place] [address] Performed By: #### 5 7021-8 ####HAND LABORATORYCLIA [id number] [address] [place] Erythrocyte distribution width (RBC) [Ratio] 13.1 % Normal 11.5-15.0 [facility] Comment on above: Order Comment: Speci men Type: BLOOD SPECIMENOrdering Facility: [facility] Address: [address] [place] [address] Performed By: #### 5 7021-8 ####HAND LABORATORYCLIA [id number] [address] [place] Hematocrit (Bld) [Volume fraction] 41.4 % Normal 36.0-46.0 [facility] Comment on above: Order Comment: Speci men Type: BLOOD SPECIMENOrdering Facility: [facility] Address: [address] [place] [address] Performed By: #### 5 7021-8 ####HAND LABORATORYCLIA [id number] [address] [place] Hemoglobin (Bld) [Mass/Vol] 13.4 g/dL Normal 11.5-15. 5 [facility] Comment on above: Order Comment: Speci men Type: BLOOD SPECIMENOrdering Facility: [facility] Address: [address] [place] [address] Performed By: #### 5 7021-8 ####HAND LABORATORYCLIA [id number] [place] [address] [place] [facility] [place] Immature granulocytes (Bld) [#/Vol] 10*3/uL Normal <0.10 [facility] Comment on above: Order Comment: Speci men Type: BLOOD SPECIMENOrdering Facility: [facility] Address: [address] [place] [address] Performed By: #### 5 7021-8 ####HAND LABORATORYCLIA [id number] [address] [place] Immature granulocytes/100 WBC (Bld) 0.3 % Normal [facility] Comment on above: Order Comment: Speci men Type: BLOOD SPECIMENOrdering Facility: [facility] Address: [address] [place] [address] Performed By: #### 5 7021-8 ####HAND LABORATORYCLIA [id number] [place] [address] [place] Lymphocytes (Bld) [#/Vol] 1.73 10*3/uL Normal 1.00-4.0 0 [facility] Comment on above: Order Comment: Speci men Type: BLOOD SPECIMENOrdering Facility: [facility] Address: [address] [place] [address] Performed By: #### 5 7021-8 ####HAND LABORATORYCLIA [id number] [address] [place] [facility] Lymphocytes/100 WBC (Bld) 24.1 % Normal [facility] Comment on above: Order Comment: Speci men Type: BLOOD SPECIMENOrdering Facility: [facility] Address: [address] [place] [address] Performed By: #### 5 7021-8 ####HAND LABORATORYCLIA [id number] [place] [address] [place] MCH (RBC) [Entitic mass] 29.9 pg Normal 26.0-34.0 [facility] Comment on above: Order Comment: Speci men Type: BLOOD SPECIMENOrdering Facility: [facility] Address: [address] [place] [address] Performed By: #### 5 7021-8 ####HAND LABORATORYCLIA [id number] [place] [address] [place] MCHC (RBC) [Mass/Vol] 32.4 g/dL Normal 30.5-36.0 [facility] Comment on above: Order Comment: Speci men Type: BLOOD SPECIMENOrdering Facility: [facility] Address: [address] [place] [address] Performed By: #### 5 7021-8 ####HAND LABORATORYCLIA [id number] [place] [address] [place] MCV (RBC) [Entitic vol] 92.4 fL Normal 80.0-100.0 [facility] Comment on above: Order Comment: Speci men Type: BLOOD SPECIMENOrdering Facility: [facility] Address: [address] [place] [address] Performed By: #### 5 7021-8 ####HAND LABORATORYCLIA [id number] [place] [address] [place] Monocytes (Bld) [#/Vol] 0.55 10*3/uL Normal <0.87 [facility] Comment on above: Order Comment: Speci men Type: BLOOD SPECIMENOrdering Facility: [facility] Address: [address] [place] [address] Performed By: #### 5 7021-8 ####HAND LABORATORYCLIA [id number] [place] [address] [place] Monocytes/100 WBC (Bld) 7.7 % Normal [facility] Comment on above: Order Comment: Speci men Type: BLOOD SPECIMENOrdering Facility: [facility] Address: [address] [place] [address] Performed By: #### 5 7021-8 ####HAND LABORATORYCLIA [id number] [place] [address] [place] Neutrophils (Bld) [#/Vol] 3.58 10*3/uL Normal 1.45-7.5 0 [facility] Comment on above: Order Comment: Speci men Type: BLOOD SPECIMENOrdering Facility: [facility] Address: [address] [place] [address] Performed By: #### 5 7021-8 ####HAND LABORATORYCLIA [id number] [place] [address] [place] Neutrophils/100 WBC (Bld) 49.8 % Normal [facility] Comment on above: Order Comment: Speci men Type: BLOOD SPECIMENOrdering Facility: [facility] Address: [address] [place] [address] Performed By: #### 5 7021-8 ####HAND LABORATORYCLIA [id number] [place] [address] [place] Nucleated RBC (Bld) [#/Vol] 10*3/uL Normal <0.01 [facility] Comment on above: Order Comment: Speci men Type: BLOOD SPECIMENOrdering Facility: [facility] Address: [address] [place] [address] Performed By: #### 5 7021-8 ####HAND LABORATORYCLIA [id number] [place] [address] [place] Nucleated RBC/100 WBC (Bld) [Ratio] 0.0 /100 WBC Normal [facility] Comment on above: Order Comment: Speci men Type: BLOOD SPECIMENOrdering Facility: [facility] Address: [address] [place] [address] Performed By: #### 5 7021-8 ####HAND LABORATORYCLIA [id number] [place] [address] [place] Platelet mean volume (Bld) [Entitic vol] 9.3 fL Normal 9.0-12.7 [facility] Comment on above: Order Comment: Speci men Type: BLOOD SPECIMENOrdering Facility: [facility] Address: [address] [place] [address] Performed By: #### 5 7021-8 ####HAND LABORATORYCLIA [id number] [place] [address] [place] Platelets (Bld) [#/Vol] 217 10*3/uL Normal 150-400 [facility] Comment on above: Order Comment: Speci men Type: BLOOD SPECIMENOrdering Facility: [facility] Address: [address] [place] [address] Performed By: #### 5 7021-8 ####HAND LABORATORYCLIA [id number] [address] [place] RBC (Bld) [#/Vol] 4.48 10*6/uL Normal 3.90-5.20 [facility] Comment on above: Order Comment: Speci men Type: BLOOD SPECIMENOrdering Facility: [facility] Address: [address] [place] [address] Performed By: #### 5 7021-8 ####HAND LABORATORYCLIA [id number] [address] [place] WBC (Bld) [#/Vol] 7.18 10*3/uL Normal 3.70-11.00 [facility] Comment on above: Order Comment: Speci men Type: BLOOD SPECIMENOrdering Facility: [facility] Address: [address] [place] [address] Performed By: #### 5 7021-8 ####HAND LABORATORYCLIA [id number] [address] CBC panel Auto (Bld)on 11-30 Erythrocyte distribution width (RBC) [Ratio] 13.2 % Normal 11.5-15.0 [facility] Comment on above: Order Comment: Speci men Type: BLOOD SPECIMENOrdering Facility: [facility] Address: [address] [place] [address] Performed By: #### 5 8410-2 ####HAND LABORATORYCLIA [id number] [address] Hematocrit (Bld) [Volume fraction] 36.6 % Normal 36.0-46.0 [facility] Comment on above: Order Comment: Speci men Type: BLOOD SPECIMENOrdering Facility: [facility] Address: [address] [place] [address] Performed By: #### 5 8410-2 ####HAND LABORATORYCLIA [id number] [address] Hemoglobin (Bld) [Mass/Vol] 11.9 g/dL Normal 11.5-15. 5 [facility] Comment on above: Order Comment: Speci men Type: BLOOD SPECIMENOrdering Facility: [facility] Address: [address] [place] [address] Performed By: #### 5 8410-2 ####HAND LABORATORYCLIA [id number] [address] [place] MCH (RBC) [Entitic mass] 30.5 pg Normal 26.0-34.0 [facility] Comment on above: Order Comment: Speci men Type: BLOOD SPECIMENOrdering Facility: [facility] Address: [address] [place] [address] Performed By: #### 5 8410-2 ####HAND LABORATORYCLIA [id number] [address] [place] MCHC (RBC) [Mass/Vol] 32.5 g/dL Normal 30.5-36.0 [facility] Comment on above: Order Comment: Speci men Type: BLOOD SPECIMENOrdering Facility: [facility] Address: [address] [place] [address] Performed By: #### 5 8410-2 ####HAND LABORATORYCLIA [id number] [address] [place] [facility] MCV (RBC) [Entitic vol] 93.8 fL Normal 80.0-100.0 [facility] Comment on above: Order Comment: Speci men Type: BLOOD SPECIMENOrdering Facility: [facility] Address: [address] [place] [address] Performed By: #### 5 8410-2 ####HAND LABORATORYCLIA [id number] [address] [place] Nucleated RBC (Bld) [#/Vol] 10*3/uL Normal <0.01 [facility] Comment on above: Order Comment: Speci men Type: BLOOD SPECIMENOrdering Facility: [facility] Address: [address] [place] [address] Performed By: #### 5 8410-2 ####HAND LABORATORYCLIA [id number] [address] [place] Platelet mean volume (Bld) [Entitic vol] 8.9 fL Low 9.0-12.7 [facility] Comment on above: Order Comment: Speci men Type: BLOOD SPECIMENOrdering Facility: [facility] Address: [address] [place] [address] Performed By: #### 5 8410-2 ####HAND LABORATORYCLIA [id number] [address] Platelets (Bld) [#/Vol] 167 10*3/uL Normal 150-400 [facility] Comment on above: Order Comment: Speci men Type: BLOOD SPECIMENOrdering Facility: [facility] Address: [address] [place] [address] Performed By: #### 5 8410-2 ####HAND LABORATORYCLIA [id number] [address] [place] RBC (Bld) [#/Vol] 3.90 10*6/uL Normal 3.90-5.20 [facility] Comment on above: Order Comment: Speci men Type: BLOOD SPECIMENOrdering Facility: [facility] Address: [address] [place] [address] Performed By: #### 5 8410-2 ####HAND LABORATORYCLIA [id number] [address] WBC (Bld) [#/Vol] 5.27 10*3/uL Normal 3.70-11.00 [facility] Comment on above: Order Comment: Speci men Type: BLOOD SPECIMENOrdering Facility: [facility] Address: [address] [place] [address] Performed By: #### 5 8410-2 ####HAND LABORATORYCLIA [id number] [address] [place] BLOOD TYPEon 024 ABO O Normal [facility] Comment on above: Order Comment: Speci men Type: BLOOD SPECIMENOrdering Facility: [facility] Address: [address] [place] [address] Performed By: #### C ONABO ####HAND BLOOD BANKCLIA [id number] [address] [place] Rh Nom (Bld) Positive Normal [facility] Comment on above: Order Comment: Speci men Type: BLOOD SPECIMENOrdering Facility: [facility] Address: [address] [place] [address] Performed By: #### C ON ####[facility] BLOOD BANKCLIA [id number] [place] [address] [place] CONSULTon 12-01-2023 CONSULT Normal [facility] CT ABD/PEL WO IVCONon 2023 CT ABD/PEL WO IVCON Invalid Interpretation Code [facility] CT BRAIN WO IVCONon 12-01-[address] BRAIN WO IVCON Normal [facility] CT CHEST WO IVCONon 12-01-[address] CHEST WO IVCON Invalid Interpretation Code [facility] Comprehensive metabolic 2000 panelon 12-01-2023 Albumin [Mass/Vol] 3.5 g/dL Low 3.9-4.9 [facility] Comment on above: Order Comment: Speci men Type: BLOOD SPECIMENOrdering Facility: [facility] Address: [address] [place] [address] Performed By: #### 2 4323-8, ####HAND LABORATORYCLIA [id number] [place] [address] [place] ALP [Catalytic activity/Vol] 132 U/L High 34-123 [facility] Comment on above: Order Comment: Speci men Type: BLOOD SPECIMENOrdering Facility: [facility] Address: [address] [place] [address] [place] [address] Performed By: #### 2 4323-8, ####HAND LABORATORYCLIA [id number] [address] [place] ALT [Catalytic activity/Vol] 9 U/L Normal 7-38 [facility] Comment on above: Order Comment: Speci men Type: BLOOD SPECIMENOrdering Facility: [facility] Address: [address] [place] [address] Performed By: #### 2 4323-8, ####HAND LABORATORYCLIA [id number] [place] [address] [place] Anion gap [Moles/Vol] 6 mmol/L Low 9-18 [facility] Comment on above: Order Comment: Speci men Type: BLOOD SPECIMENOrdering Facility: [facility] Address: [address] [facility] [place] [address] Performed By: #### 2 4322-8, ####HAND LABORATORYCLIA [id number] [place] [address] [place] AST [Catalytic activity/Vol] 20 U/L Normal 13-35 [facility] Comment on above: Order Comment: Speci men Type: BLOOD SPECIMENOrdering Facility: [facility] Address: [address] [place] [address] Performed By: #### 2 4328, ####HAND LABORATORYCLIA [id number] [place] [address] [place] Bilirubin [Mass/Vol] 0.4 mg/dL Normal 0.2-1.3 [facility] Comment on above: Order Comment: Speci men Type: BLOOD SPECIMENOrdering Facility: [facility] Address: [address] [place] [address] Performed By: #### 2 8, ####HAND LABORATORYCLIA [id number] [place] [address] [place] Calcium [Mass/Vol] 8.9 mg/dL Normal 8.5-10.2 [facility] Comment on above: Order Comment: Speci men Type: BLOOD SPECIMENOrdering Facility: [facility] Address: [address] [place] [address] Performed By: #### 2 8, ####HAND LABORATORYCLIA [id number] [place] [id number] [place] Chloride [Moles/Vol] 102 mmol/L Normal 97-105 [facility] Comment on above: Order Comment: Speci men Type: BLOOD SPECIMENOrdering Facility: [facility] Address: [facility] [address] [facility] [place] [address] Performed By: #### 2 4323-8, ####HAND LABORATORYCLIA [id number] [place] [address] [place] CO2 [Moles/Vol] 33 mmol/L High 22-30 [facility] Comment on above: Order Comment: Cesar piper Type: BLOOD SPECIMENOrdering Facility: [facility] Address: [address] [place] [address] Performed By: #### 2 4323-8, ####HAND LABORATORYCLIA [id number] [place] [id number] [place] Creatinine [Mass/Vol] 1.03 mg/dL High 0.58-0.96 [facility] Comment on above: Order Comment: Cesar men Type: BLOOD SPECIMENOrdering Facility: [facility] Address: [address] [place] [address] Performed By: #### 2 4323-8, ####HAND LABORATORYCLIA [id number] [address] Creatinine and Glomerular filtration rate.predicted panel (S/P/Bld) 60 mL/min/1.73m??? Normal >=60 [facility] Comment on above: Order Comment: Cesar piper Type: BLOOD SPECIMENOrdering Facility: [facility] Address: [address] [place] [address] Result Comment: Sweta mated Glomerular Filtration Rate [...] Performed By: #### 2 4323-8, ####HAND LABORATORYCLIA [id number] [place] [id number] [place] Glucose [Mass/Vol] 98 mg/dL Normal 74-99 [facility] Comment on above: Order Comment: Cesar feliz Type: BLOOD SPECIMENOrdering Facility: [facility] Address: [address] [place] [address] Result Comment: The [place] Diabetes Association (ADA) provides guidance for cutoff [...] Standards of Medical Care in Diabetes 2016, [place] [employer]. Diabetes Care. 2016.39(Suppl 1). Performed By: #### 2 4328, ####HAND LABORATORYCLIA [id number] [place] [address] [place] Potassium [Moles/Vol] 3.9 mmol/L Normal 3.7-5.1 [facility] Comment on above: Order Comment: Cesar piper Type: BLOOD SPECIMENOrdering Facility: [facility] Address: [address] [place] [address] Performed By: #### 2 4323-04, ####HAND LABORATORYCLIA [id number] [place] [address] [place] Protein [Mass/Vol] 6.1 g/dL Low 6.3-8.0 [facility] Comment on above: Order Comment: Cesar piper Type: BLOOD SPECIMENOrdering Facility: [facility] Address: [address] [place] [address] Performed By: #### 2 4323-04, ####HAND LABORATORYCLIA [id number] [place] [address] [place] Sodium [Moles/Vol] 141 mmol/L Normal 136-144 [facility] Comment on above: Order Comment: Cesar piper Type: BLOOD SPECIMENOrdering Facility: [facility] Address: [address] [place] [address] Performed By: #### 2 43211-12, ####HAND LABORATORYCLIA [id number] [place] [address] [place] Urea nitrogen [Mass/Vol] 12 mg/dL Normal 7-21 [facility] Comment on above: Order Comment: Cesar piper Type: BLOOD SPECIMENOrdering Facility: [facility] Address: [address] [place] [address] Performed By: #### 2 4323-8, ####HAND LABORATORYCLIA [id number] [place] [address] [place] [facility] Albumin [Mass/Vol] 4.0 g/dL Normal 3.9-4.9 [facility] Comment on above: Order Comment: Speci men Type: BLOOD SPECIMENOrdering Facility: [facility] Address: [address] [place] [address] Performed By: #### 2 4323-8, [id number], ####HAND LABORATORYCLIA [id number] [place] [address] [place] ALP [Catalytic activity/Vol] 145 U/L High 34-123 [facility] Comment on above: Order Comment: Speci men Type: BLOOD SPECIMENOrdering Facility: [facility] Address: [address] [place] [address] Performed By: #### 2 4323-8, [id number], ####HAND LABORATORYCLIA [id number] [address] [place] ALT [Catalytic activity/Vol] 7 U/L Normal 7-38 [facility] Comment on above: Order Comment: Speci men Type: BLOOD SPECIMENOrdering Facility: [facility] Address: [address] [place] [address] Performed By: #### 2 4323-8, [id number], ####HAND LABORATORYCLIA [id number] [place] [id number] [place] Anion gap [Moles/Vol] 10 mmol/L Normal 9-18 [facility] Comment on above: Order Comment: Speci men Type: BLOOD SPECIMENOrdering Facility: [facility] Address: [address] [place] [address] [place] [address] Performed By: #### 2 4323-8, [id number], ####HAND LABORATORYCLIA [id number] [place] [id number] [place] AST [Catalytic activity/Vol] 16 U/L Normal 13-35 [facility] Comment on above: Order Comment: Speci men Type: BLOOD SPECIMENOrdering Facility: [facility] Address: [address] [place] [id number] Performed By: #### 2 4323-8, [id number], ####HAND LABORATORYCLIA [id number] [place] [address] [place] Bilirubin [Mass/Vol] 0.5 mg/dL Normal 0.2-1.3 [facility] Comment on above: Order Comment: Speci men Type: BLOOD SPECIMENOrdering Facility: [facility] Address: [address] [place] [address] Performed By: #### 2 4323-8, [id number], ####HAND LABORATORYCLIA [id number] [place] [address] [place] Calcium [Mass/Vol] 9.6 mg/dL Normal 8.5-10.2 [facility] Comment on above: Order Comment: Speci men Type: BLOOD SPECIMENOrdering Facility: [facility] Address: [address] [place] [address] Performed By: #### 2 4323-8, [id number], ####HAND LABORATORYCLIA [id number] [place] [address] [place] Chloride [Moles/Vol] 97 mmol/L Normal 97-105 [facility] Comment on above: Order Comment: Speci men Type: BLOOD SPECIMENOrdering Facility: [facility] Address: [address] [place] [place] [id number] Performed By: #### 2 4323-8, [id number], ####HAND LABORATORYCLIA [id number] [place] [id number] [place] CO2 [Moles/Vol] 31 mmol/L High 22-30 [facility] Comment on above: Order Comment: Speci men Type: BLOOD SPECIMENOrdering Facility: [facility] Address: [address] [place] [id number] Performed By: #### 2 4323-8, [id number], ####[facility] LABORATORYCLIA [id number] [place] [address] [place] Creatinine [Mass/Vol] 0.92 mg/dL Normal 0.58-0.96 [facility] Comment on above: Order Comment: Cesar piper Type: BLOOD SPECIMENOrdering Facility: [facility] Address: [address] [place] [address] Performed By: #### 2 4323-8, [id number], ####[facility] LABORATORYCLIA [id number] [place] [address] [place] Creatinine and Glomerular filtration rate.predicted panel (S/P/Bld) 68 mL/min/1.73m??? Normal >=60 [facility] Comment on above: Order Comment: Hola feliz Type: BLOOD SPECIMENOrdering Facility: [facility] Address: [address] [place] [address] Result Comment: Sweta mated Glomerular Filtration Rate [...] actual GFR. Performed By: #### 2 4323-8, [id number], ####[facility] LABORATORYCLIA [id number] [place] [address] [place] Glucose [Mass/Vol] 104 mg/dL High 74-99 [facility] Comment on above: Order Comment: Cesar piper Type: BLOOD SPECIMENOrdering Facility: [facility] Address: [address] [place] [address] Result Comment: The [place] Diabetes Association (ADA) provides guidance for cutoff [...] Standards of Medical Care in Diabetes 2016, [place] [employer]. Diabetes Care. 2016.39(Suppl 1). Performed By: #### 2 4323-8, [id number], ####HAND LABORATORYCLIA [id number] [place] [address] [place] Potassium [Moles/Vol] 3.6 mmol/L Low 3.7-5.1 [facility] Comment on above: Order Comment: Speci men Type: BLOOD SPECIMENOrdering Facility: [facility] Address: [address] [place] [address] Performed By: #### 2 4323-8, [id number], ####HAND LABORATORYCLIA [id number] [place] [address] [place] Protein [Mass/Vol] 7.1 g/dL Normal 6.3-8.0 [facility] Comment on above: Order Comment: Speci men Type: BLOOD SPECIMENOrdering Facility: [facility] Address: [address] [place] [address] Performed By: #### 2 4323-8, [id number], ####HAND LABORATORYCLIA [id number] [place] [address] [place] Sodium [Moles/Vol] 138 mmol/L Normal 136-144 [facility] Comment on above: Order Comment: Speci men Type: BLOOD SPECIMENOrdering Facility: [facility] Address: [address] [place] [address] Performed By: #### 2 4323-8, [id number], ####HAND LABORATORYCLIA [id number] [place] [id number] [place] Urea nitrogen [Mass/Vol] 12 mg/dL Normal 7-21 [facility] Comment on above: Order Comment: Holai men Type: BLOOD SPECIMENOrdering Facility: [facility] Address: [address] [place] [address] Performed By: #### 2 4323-8, [id number], 60203-9 ####[facility] LABORATORYCLIA [id number] [place] [address] [place] ECG COMPLETEon 12-01-2023 ECG COMPLETE [facility] ED NOTEon 12-01-2023 ED NOTE HNO ID: [id number] Author: ORTEGA LI RN Service: ? Author Type: Registered Nurse Type: ED Notes Filed: 12/01/2023 03:43 Note Text: Dave RIBERA at bedside. [facility] ED NOTE HNO ID: [id number] Author: CALI NOLAN RN Service: Nursing Author Type: Registered Nurse Type: ED Notes Filed: 12/01/2023 01:26 Note Text: Pt report was given to Ortega NGUYEN [facility] ED NOTE HNO ID: [id number] Author: CALI NOLAN RN Service: Nursing Author Type: Registered Nurse Type: ED Notes Filed: 12/01/2023 00:27 Note Text: Pts son is bedside [facility] ED NOTE HNO ID: [id number] Author: CALI NOLAN RN Service: Nursing Author Type: Registered Nurse Type: ED Notes Filed: 11/30/2023 23:44 Note Text: Pt and her son at the bedside were updated of the plan of care [facility] ED NOTE [facility] ED NOTE HNO ID: [id number] Author: CALI NOLAN RN Service: Nursing Author Type: Registered Nurse Type: ED Notes Filed: 11/30/2023 22:30 Note Text: Pt to ct scan per the er cart [facility] FLUABV+SARS-CoV-2+RSV Pnl Re sp KAYDEN+probeon 12-01-2023 FLUABV+SARS-CoV-2+RSV Pnl Resp KAYDEN+probe [facility] Comment on above: Performed By: #### 9 5941-1 ####[facility] LABORATORYCLIA [id number] [place] [address] [place] Gas and Carbon monoxide pane l (BldV)on 12-01-2023 Base excess Calc (BldV) [Moles/Vol] 6 mmol/L High 0-2 [facility] Comment on above: Order Comment: Speci men Type: VENOUS BLOOD SPECIMENOrdering Facility: [facility] Address: [address] [place] [id number] Performed By: #### 2 4344-4 ####HAND RESPIRATORYCLIA [id number] [facility] [id number] [address] [address] Carboxyhemoglobin (BldV) [Mass fraction] 3.5 % High 0.0-2.0 [facility] Comment on above: Order Comment: Speci men Type: VENOUS BLOOD SPECIMENOrdering Facility: [facility] Address: [address] [place] [address] Result Comment: Carb oxyhemoglobin Reference Range for Smokers: 2.0-8.0% Performed By: #### 2 4344-4 ####HAND RESPIRATORYCLIA [id number] [facility] [id number] [address] [address] CO2 (BldV) [Partial pressure] 45 mm[Hg] Normal 42-55 [facility] Comment on above: Order Comment: Speci men Type: VENOUS BLOOD SPECIMENOrdering Facility: [facility] Address: [address] [place] [address] Performed By: #### 2 4344-4 ####YAZAN RESPIRATORYCLIA [id number] [facility]OS[facility] RESPIRATORY [id number] [address] [address] CO2 adjusted to patient's actual temperature (BldV) [Partial pressure] Normal [facility] Comment on above: Order Comment: Speci men Type: VENOUS BLOOD SPECIMENOrdering Facility: [facility] Address: [address] [place] [address] Performed By: #### 2 4344-4 ####HAND RESPIRATORYCLIA [id number] [facility] [id number] [address] [address] HCO3 (Bld) [Moles/Vol] 30 mmol/L High 24-28 [facility] Comment on above: Order Comment: Speci men Type: VENOUS BLOOD SPECIMENOrdering Facility: [facility] Address: [address] [place] [address] Performed By: #### 2 4344-4 ####HAND RESPIRATORYIA [id number] [facility]OSP[facility] RESPIRATORY [id number] [address] Hemoglobin (Bld) [Mass/Vol] 13.6 g/dL Normal 11.5-15. 5 [facility] Comment on above: Order Comment: Speci men Type: VENOUS BLOOD SPECIMENOrdering Facility: [facility] Address: [address] [place] [address] Performed By: #### 2 4344-4 ####[facility] RESPIRATORYSOUTHWE[facility] [id number] [facility]OS[facility] RESPIRATORY [id number] [address] [address] Lactate [Moles/Vol] 0.7 mmol/L Normal 0.5-2.2 [facility] Comment on above: Order Comment: Speci men Type: VENOUS BLOOD SPECIMENOrdering Facility: [facility] Address: [address] [place] [address] Performed By: #### 2 4344-4 ####[facility] RESPIRATORYSOUTHWEST[facility] [id number] [facility] RESPIRAT[facility] [id number] [address] [address] Methemoglobin (Bld) [Mass fraction] % Normal 0.0-1.5 [facility] Comment on above: Order Comment: Speci men Type: VENOUS BLOOD SPECIMENOrdering Facility: [facility] Address: [address] [place] [address] Performed By: #### 2 4344-4 ####[facility] [id number] [facility]OSP[facility] RESPIRATORY [id number] [address] [address] O2 THERAPY RA=Room Air Normal [facility] Comment on above: Order Comment: Speci men Type: VENOUS BLOOD SPECIMENOrdering Facility: [facility] Address: [address] [place] [address] Performed By: #### 2 4344-4 ####[facility] [id number] [facility]OS[facility] RESPIRATORY [id number] [address] [address] Oxygen (BldV) [Partial pressure] 54 mm[Hg] High 35-45 [facility] Comment on above: Order Comment: Speci men Type: VENOUS BLOOD SPECIMENOrdering Facility: [facility] Address: [address] [place] [address] Performed By: #### 2 4344-4 ####HAND RESPIRATORYCLIA [id number] [facility] RESPIRAT[facility] [id number] [address] Oxygen adjusted to patient's actual temperature (BldV) [Partial pressure] Normal [facility] Comment on above: Order Comment: Speci men Type: VENOUS BLOOD SPECIMENOrdering Facility: [facility] Address: [address] [place] [id number] Performed By: #### 2 4344-4 ####HAND RESPIRATORYCLIA [id number] [facility]OS[facility] RESPIRAT[facility] [id number] [address] Oxyhemoglobin (BldV) [Mass fraction] 83 % Normal 60-85 [facility] Comment on above: Order Comment: Speci men Type: VENOUS BLOOD SPECIMENOrdering Facility: [facility] Address: [address] [place] [address] Performed By: #### 2 4344-4 ####HAND RESPIRATORYCLIA [id number] [facility] RES[facility]IR[facility] [id number] [address] [address] pH (BldV) 7.44 [pH] High 7.32-7.42 [facility] Comment on above: Order Comment: Speci men Type: VENOUS BLOOD SPECIMENOrdering Facility: [facility] Address: [address] [place] [address] Performed By: #### 2 4344-4 ####HAND RESPIRATORYCLIA [id number] [facility] RES[facility]IRAT[facility] [id number] [address] pH adjusted to patient's actual temperature (BldV) Normal [facility] Comment on above: Order Comment: Speci men Type: VENOUS BLOOD SPECIMENOrdering Facility: [facility] Address: [address] [place] [id number] Performed By: #### 2 4344-4 ####HAND RESPIRATORYCLIA [id number] [facility] [id number] [address] Potassium [Moles/Vol] 3.4 mmol/L Low 3.5-5.0 [facility] Comment on above: Order Comment: Cesar piper Type: VENOUS BLOOD SPECIMENOrdering Facility: [facility] Address: [address] [place] [address] Performed By: #### 2 4344-4 ####HAND RESPIRATORYCLIA [id number] [facility]OS[facility] RESPIRAT[facility] [id number] [address] HIGH SENSITIVITY TROPONIN T (INITIAL)on 12-01-2023 Troponin T.cardiac High sensitivity method [Mass/Vol] 18 ng/L High <12 [facility] Comment on above: Order Comment: Cesar piper Type: BLOOD SPECIMENOrdering Facility: [facility] Address: [address] [place] [address] Result Comment: When assessing risk for acute [...] day MACE. Performed By: #### 2 4323-8, [id number], 03519-9 ####HAND LABORATORYCLIA [id number] [address] HIGH SENSITIVITY TROPONIN T (SECOND)on 12-01-2023 Troponin T.cardiac High sensitivity method [Mass/Vol] 18 ng/L High <12 [facility] Comment on above: Order Comment: Cesar piper Type: BLOOD SPECIMENOrdering Facility: [facility] Address: [address] [place] [address] Result Comment: When assessing risk for acute [...] 30 day MACE. Performed By: #### L [id number] ####HAND LABORATORYCLIA [id number] [address] HIGH SENSITIVITY TROPONIN T (THIRD) 3 HRS AFTER INITIALon 12-01-2023 Troponin T.cardiac High sensitivity method [Mass/Vol] 16 ng/L High <12 [facility] Comment on above: Order Comment: Speci men Type: BLOOD SPECIMENOrdering Facility: [facility] Address: [address] [place] [address] Result Comment: When assessing risk for acute [...] 30 day MACE. Performed By: #### L [id number], 3040-3 ####[facility] LABORATORYCLIA [id number] [address] HISTORY PHYSICALon HISTORY PHYSICAL Normal [facility] Lipase SerPl-cCncon 12-01-19 24 Lipase [Catalytic activity/Vol] 10 U/L Low 16-61 [facility] Comment on above: Order Comment: Speci men Type: BLOOD SPECIMENOrdering Facility: [facility] Address: [address] [place] [address] Performed By: #### L [id number], 3040-3 ####HAND LABORATORYCLIA [id number] [address] MRI 3D POST PROCESSINGon MRI 3D POST PROCESSING Normal [facility] MRI PANC/WILMAN WO/W IVCONon MRI PANC/WILMAN WO/W IVCON Normal [facility] Magnesium SerPl-mCncon 11-30 Magnesium [Mass/Vol] 2.0 mg/dL Normal 1.7-2.3 [facility] Comment on above: Order Comment: Speci men Type: BLOOD SPECIMENOrdering Facility: [facility] Address: [address] [place] [address] Performed By: #### 2 4323-8, 26343-1 ####HAND LABORATORYCLIA [id number] [address] Magnesium [Mass/Vol] 1.8 mg/dL Normal 1.7-2.3 [facility] Comment on above: Order Comment: Cesar piper Type: BLOOD SPECIMENOrdering Facility: [facility] Address: [address] [place] [address] [place] [address] Performed By: #### 2 4323-8, [id number], 49081-1 ####[facility] LABORATORYCLIA [id number] [address] [facility] NM HEPATOBILIARY W EF AND/OR RXon 12-01-2023 NM HEPATOBILIARY W EF AND/OR RX Normal [facility] OCCULT BLD EXAM-DIAGon 11-30 OCCULT BLD EXAM-DIAG Negative Normal [facility] Comment on above: Performed By: #### O BDX ####[facility] LABORATORYCLIA [id number] [address] PT panel Coag (PPP)on 2023 INR Coag (PPP) [Relative time] 1.1 {INR} Normal 0.9-1.3 [facility] Comment on above: Order Comment: Cesar piper Type: BLOOD SPECIMENOrdering Facility: [facility] Address: [address] [place] [address] Result Comment: Marce min K Antagonist (VKA) Therapeutic Range: INR 2 to 3 (Target INR of 2.5)Note: For patients treated with VKA drugs, such as warfarin, the [place] [employer] 2012 Guideline recommends [...] of 3).Montez GH, et al. Chest 2012, 141:7S-47SAngeles RA, et al. [facility] 2017, 70: 252-289 Performed By: #### 3 4528-0, 32307-2 ####HAND LABORATORYCLIA [id number] [address] PT Coag (PPP) [Time] 11.3 s Normal 9.7-13.0 [facility] Comment on above: Order Comment: Speci men Type: BLOOD SPECIMENOrdering Facility: [facility] Address: [address] [place] [address] Performed By: #### 3 4528-0, 42465-5 ####HAND LABORATORYCLIA [id number] [address] TYPE + SCREENon 12-01-2023 ABO O [facility] Comment on above: Order Comment: Speci men Type: BLOOD SPECIMENOrdering Facility: [facility] Address: [address] [place] [address] Performed By: #### T SCR ####HAND BLOOD BANKCLIA [id number] [address] HISTORICAL AB SCR STATUS Negative [facility] Comment on above: Order Comment: Speci men Type: BLOOD SPECIMENOrdering Facility: [facility] Address: [address] [place] [address] Performed By: #### T SCR ####HAND BLOOD BANKCLIA [id number] [address] Rh Nom (Bld) Positive [facility] Comment on above: Order Comment: Speci men Type: BLOOD SPECIMENOrdering Facility: [facility] Address: [address] [place] [address] Performed By: #### T SCR ####HAND BLOOD BANKCLIA [id number] [address] TYPE AND SCREEN EXPIRATION 12/03/2023 23:59 Normal [facility] Comment on above: Order Comment: Speci men Type: BLOOD SPECIMENOrdering Facility: [facility] Address: [address] [place] [address] Performed By: #### T SCR ####HAND BLOOD BANKCLIA [id number] [place] [address] [place] US ABD RIGHT UPPER QUADRANTo n 12-01-2023 US ABD RIGHT UPPER QUADRANT Normal [facility] US ABD SPLEEN -NBon 12-01-19 US ABD SPLEEN -NB Normal [facility] Urinalysis complete panel (U )on 12-01-2023 Bilirubin Ql (U) Negative Normal Negative [facility] Comment on above: Order Comment: Speci men Type: URINE SPECIMENOrdering Facility: [facility] Address: [address] [place] [address] Performed By: #### 2 4356-8 ####HAND LABORATORYCLIA [id number] [address] [place] Clarity (Unsp spec) Clear Normal Clear [facility] Comment on above: Order Comment: Speci men Type: URINE SPECIMENOrdering Facility: [facility] Address: [address] [place] [address] Performed By: #### 2 4356-8 ####HAND LABORATORYCLIA [id number] [address] [facility] Color (U) Yellow Normal Yellow [facility] Comment on above: Order Comment: Speci men Type: URINE SPECIMENOrdering Facility: [facility] Address: [address] [place] [address] Performed By: #### 2 4356-8 ####HAND LABORATORYCLIA [id number] [address] Epithelial cells LM.HPF (Urine sed) [#/Area] Moderate Normal [facility] Comment on above: Order Comment: Speci men Type: URINE SPECIMENOrdering Facility: [facility] Address: [address] [place] [address] Performed By: #### 2 4356-8 ####HAND LABORATORYCLIA [id number] [address] OF [place] Glucose Test strip (U) [Mass/Vol] Negative Normal Negative [facility] Comment on above: Order Comment: Speci men Type: URINE SPECIMENOrdering Facility: [facility] Address: [address] [place] [address] Performed By: #### 2 4356-8 ####HAND LABORATORYCLIA [id number] [place] [address] [place] Hemoglobin Ql (U) Negative Normal Negative [facility] Comment on above: Order Comment: Speci men Type: URINE SPECIMENOrdering Facility: [facility] Address: [address] [place] [address] Performed By: #### 2 4356-8 ####HAND LABORATORYCLIA [id number] [place] [address] [place] Ketones Ql (U) Negative Normal Negative [facility] Comment on above: Order Comment: Speci men Type: URINE SPECIMENOrdering Facility: [facility] Address: [address] [place] [address] Performed By: #### 2 4356-8 ####HAND LABORATORYCLIA [id number] [place] [address] [place] Leukocyte esterase Test strip Ql (U) Negative Normal Negative [facility] Comment on above: Order Comment: Speci men Type: URINE SPECIMENOrdering Facility: [facility] Address: [address] [place] [address] Performed By: #### 2 4356-8 ####HAND LABORATORYCLIA [id number] [place] [address] [place] Nitrite Ql (U) Negative Normal Negative [facility] Comment on above: Order Comment: Speci men Type: URINE SPECIMENOrdering Facility: [facility] Address: [address] [place] [address] Performed By: #### 2 4356-8 ####HAND LABORATORYCLIA [id number] [place] [id number] [place] pH (U) 6.0 [pH] Normal 5.0-8.0 [facility] Comment on above: Order Comment: Speci men Type: URINE SPECIMENOrdering Facility: [facility] Address: [address] [place] [address] Performed By: #### 2 4356-8 ####HAND LABORATORYCLIA [id number] [place] [address] [place] Protein (U) [Mass/Vol] Negative Normal Negative [facility] Comment on above: Order Comment: Speci men Type: URINE SPECIMENOrdering Facility: [facility] Address: [address] [place] [address] Performed By: #### 2 4356-8 ####HAND LABORATORYCLIA [id number] [address] [place] RBC LM.HPF (Urine sed) [#/Area] 0-3 /HPF Normal 0-3 /HPF [facility] Comment on above: Order Comment: Speci men Type: URINE SPECIMENOrdering Facility: [facility] Address: [address] [place] [address] Performed By: #### 2 4356-8 ####[facility] LABORATORYCLIA [id number] [address] Specific gravity (U) [Rel density] 1.015 Normal 1.005-1.03 0 [facility] Comment on above: Order Comment: Speci men Type: URINE SPECIMENOrdering Facility: [facility] Address: [address] [place] [address] Performed By: #### 2 4356-8 ####[facility] LABORATORYCLIA [id number] [address] Urobilinogen Ql (U) 0.2 EU/dL Normal 0.2-1.0 EU/dL [facility] Comment on above: Order Comment: Speci men Type: URINE SPECIMENOrdering Facility: [facility] Address: [address] [place] [address] Performed By: #### 2 4356-8 ####[facility] LABORATORYCLIA [id number] [address] WBC LM.HPF (Urine sed) [#/Area] 0-5 /HPF Normal 0-5 /HPF [facility] Comment on above: Order Comment: Speci men Type: URINE SPECIMENOrdering Facility: [facility] Address: [address] [place] [address] Performed By: #### 2 4356-8 ####[facility] LABORATORYCLIA [id number] [place] [address] [place] XR CHEST 1V FRONTAL PORTon 0 12-01-2023 XR CHEST 1V FRONTAL PORT Normal [facility] aPTT PPPon 12-01-2023 aPTT Coag (PPP) [Time] 30.8 s Normal 23.0-32.4 [facility] Comment on above: Order Comment: Speci men Type: BLOOD SPECIMENOrdering Facility: [facility] Address: [address] [place] [address] Performed By: #### 3 4528-0, 27482-2 ####[facility] LABORATORYCLIA [id number] [place] [address] [place] ALLIED HEALTHon 11-30-2023 ALLIED HEALTH Normal [facility] ED NOTEon 11-30-2023 ED NOTE Normal [facility] ED PROV NOTEon 11-30-2023 ED PROV NOTE Normal [facility] Absolute lymphocyte countOrd ered By: Waqas Hart on 09-29-2023 Lymphocytes Auto (Unsp spec) [#/Vol] 1.94 10*3/uL 0.83-4.51 [facility] Automated lymphocyte count a s percentage of total leukocytesOrdered By: Waqas Hart on 09-29-2023 Lymphocytes/100 WBC Auto (Unsp spec) 18.9 % 19-41 [facility] Basophil percentageOrdered B y: Waqas Hart on 09-29-2023 Basophil percentage 11.6 g/dL 12.0-15.0 [facility] Basophil percentage 122 mg/dL 74-106 [facility] Basophil percentage 6.8 g/dL 6.4-8.2 [facility] Basophil percentage 0.30 mg/dL 0.20-1.00 [facility] Basophil percentage 141 mmol/L 136-145 [facility] Basophil percentage 3.9 mmol/L 3.5-5.1 [facility] Basophil percentage 109 mmol/L 98-107 [facility] Basophils (Bld) [#/Vol] 10.2 10*3/uL 4.4-11.0 [facility] Basophils (Bld) [#/Vol] 7.6 10*3/uL 2.0-7.7 [facility] Basophils/100 WBC (Bld) 74.3 % 47-70 [facility] Basophils/100 WBC (Bld) 5.8 % 0-10 [facility] Basophils/100 WBC (Bld) 0.2 % 0-1 [facility] Bilirubin [Mass/Vol] 0.30 mg/dL 0.20-1.00 [facility] Comment on above: For patients on eltr ombopag therapy, use of Dimension [place] TBIL is not recommended. Chloride [Moles/Vol] 109 mmol/L 98-107 [facility] Eosinophils/100 WBC (Bld) 0.2 % 0-5 [facility] Glucose [Mass/Vol] 122 mg/dL 74-106 [facility] Comment on above: Fasting Glucose resu lt from 100 to 125 mg/dL suggests IMPAIRED HOMEOSTASIS per A.D.A. criteria. Hemoglobin (Bld) [Mass/Vol] 11.6 g/dL 12.0-15. 0 [facility] Monocytes/100 WBC (Bld) 5.8 % 0-10 [facility] Neutrophils (Bld) [#/Vol] 7.6 10*3/uL 2.0-7.7 [facility] Neutrophils/100 WBC (Bld) 74.3 % 47-70 [facility] Potassium [Moles/Vol] 3.9 mmol/L 3.5-5.1 [facility] Protein [Mass/Vol] 6.8 g/dL 6.4-8.2 [facility] Sodium [Moles/Vol] 141 mmol/L 136-145 [facility] WBC (Bld) [#/Vol] 10.2 10*3/uL 4.4-11.0 [facility] Determination of erythrocyte mean corpuscular volume (MCV)Ordered By: Waqas Hart on 09-29-2023 MCV (RBC) [Entitic vol] 93.6 fL 81-99 [facility] Erythrocyte distribution wid th ratioOrdered By: Waqas Hart on 09-29-2023 Erythrocyte distribution width (RBC) [Ratio] 12.8 % 11.6-14.6 [facility] Erythrocyte distribution wid th standard deviationOrdered By: Waqas Hart on 09-29-2023 Erythrocyte distribution width (RBC) [Entitic vol] 44.2 fL 35.1-43.9 [facility] Hematocrit Auto (Bld) [Volum e fraction]Ordered By: Waqas Hart on 09-29-2023 Hematocrit (Bld) [Volume fraction] 35.2 % 37-47 [facility] Immature granulocytes/100 WB C Auto (Bld)Ordered By: Waqas Hart on 09-29-2023 Immature granulocytes/100 WBC (Bld) 0.600 % 0.0-0.9 [facility] Comment on above: IG% - Immature Granu locytes (promyelocytes, myelocytes and metamyelocytes) > 1% indicates that a LEFT SHIFT is Present. Laboratory - Chemistry and C hemistry - challengeOrdered By: Waqas Hart on 09-29-2023 Albumin/Globulin [Mass ratio] 0.7 {ratio} 0.9-2.4 [facility] ALP [Catalytic activity/Vol] 107 U/L 45-117 [facility] ALT [Catalytic activity/Vol] 12 U/L 13-56 [facility] CO2 [Moles/Vol] 28.0 mmol/L 21.0-32.0 [facility] Globulin (S) [Mass/Vol] 3.9 g/dL 2.2-4.2 [facility] Lipase [Catalytic activity/Vol] 16 U/L 13-75 [facility] Comment on above: Please note:LIPASE r evised reference range effective 22. New Lipase methodology. Expected to produce lower values than the previous assay method. NEW Reference Range: 13 - 75 U/L Urea nitrogen/Creatinine [Mass ratio] 17.2 mg/mg 10-20 [facility] Laboratory - Hematology and Cell countsOrdered By: Waqas Hart on 09-29-2023 MCH (RBC) [Entitic mass] 30.9 pg 27.0-32.0 [facility] MCHC (RBC) [Mass/Vol] 33.0 g/dL 32-36 [facility] Nucleated RBC/100 WBC (Bld) [Ratio] 0 % 0-5 [facility] Platelets (Bld) [#/Vol] 258 10*3/uL 150-450 [facility] No Panel InformationOrdered By: Waqas Hart on 09-29-2023 Troponin I High Sensitivity 31 pg/mL 3.0-54.0 [facility] Comment on above: Please Note: New Amanda t Units and Gender Specific Reference Ranges. For more information see Policy Stat Procedure [place] High Sensitivity Troponin (TNIH) and attachments. 31 pg/mL 3.0-54.0 [facility] Estimated Creatinine Clearance Calc 70.55 ml/min [facility] Estimated GFR (MDRD) Amer 78 mL/min >60 [facility] Comment on above: GFR Calc Estimated GFR (MDRD) Non-Af Amer 64 mL/min >60 [facility] Comment on above: Non- GFR Calc 30.9 pg 27.0-32.0 [facility] 33.0 g/dL 32-36 [facility] 258 K/mm3 150-450 [facility] 0 % 0-5 [facility] 64 mL/min >60 [facility] 78 mL/min >60 [facility] 70.55 ml/min [facility] 17.2 RATIO 10-20 [facility] 3.9 g/dL 2.2-4.2 [facility] 0.7 RATIO 0.9-2.4 [facility] 16 U/L 13-75 [facility] 107 U/L 45-117 [facility] 12 U/L 13-56 [facility] 28.0 mmol/L 21.0-32.0 [facility] Platelet mean volume Jonny-Ec ker (Bld) [Entitic vol]Ordered By: Waqas Hart on 09-29-2023 Platelet mean volume (Bld) [Entitic vol] 9.0 fL 6.2-12.0 [facility] RBC Auto (Bld) [#/Vol]Ordere d By: Waqas Hart on 09-29-2023 RBC (Bld) [#/Vol] 3.76 10*6/uL 4.2-5.4 [facility] Serum or plasma calcium areli urement (mass/volume)Ordered By: Waqas Hart on 09-29-2023 Calcium [Mass/Vol] 9.2 mg/dL 8.5-10.1 [facility] Serum or plasma creatinine m easurement (mass/volume)Ordered By: Waqas Hart on 09-29-2023 Creatinine [Mass/Vol] 0.93 mg/dL 0.55-1.02 [facility] Comment on above: The validity of the calculated GFR & GFRAA in patients over 70 years has not been determined. Clinical correlation is essential. Serum or plasma urea nitroge n measurement (mass/volume)Ordered By: Waqas Hart on 09-29-2023 Urea nitrogen [Mass/Vol] 16 mg/dL 7-18 [facility] Thin prep Papanicolaou smear with manual screeningOrdered By: Waqas Hart on 09-29-2023 Thin prep Papanicolaou smear with manual screening 2.9 g/dL 3.2-5.0 [facility] Thin prep Papanicolaou smear with manual screening 10 U/L 15-37 [facility] Thin prep Papanicolaou smear with manual screening 4 5-15 [facility] Absolute lymphocyte countOrd ered By: Lo Chu on 09-05-2023 Lymphocytes Auto (Unsp spec) [#/Vol] 1.96 10*3/uL 0.83-4.51 [facility] Basophil percentageOrdered B y: Lo Chu on 09-05-2023 Basophil percentage 0 SEEN /hpf 0-5 [facility] Basophil percentage 112 mg/dL 74-106 [facility] Basophil percentage 6.9 g/dL 6.4-8.2 [facility] Basophil percentage 0.50 mg/dL 0.20-1.00 [facility] Basophil percentage 137 mmol/L 136-145 [facility] Basophil percentage 4.0 mmol/L 3.5-5.1 [facility] Basophil percentage 105 mmol/L 98-107 [facility] Basophils (Bld) [#/Vol] 8.8 10*3/uL 4.4-11.0 [facility] Basophils (Bld) [#/Vol] 5.8 10*3/uL 2.0-7.7 [facility] Basophils/100 WBC (Bld) 65.6 % 47-70 [facility] Basophils/100 WBC (Bld) 3.5 % 0-5 [facility] Basophils/100 WBC (Bld) 0.6 % 0-1 [facility] Bilirubin [Mass/Vol] 0.50 mg/dL 0.20-1.00 [facility] Comment on above: For patients on eltr ombopag therapy, use of Dimension [place] TBIL is not recommended. Chloride [Moles/Vol] 105 mmol/L 98-107 [facility] Eosinophils/100 WBC (Bld) 3.5 % 0-5 [facility] Glucose [Mass/Vol] 112 mg/dL 74-106 [facility] Comment on above: Fasting Glucose resu lt from 100 to 125 mg/dL suggests IMPAIRED HOMEOSTASIS per A.D.A. criteria. Neutrophils (Bld) [#/Vol] 5.8 10*3/uL 2.0-7.7 [facility] Neutrophils/100 WBC (Bld) 65.6 % 47-70 [facility] Potassium [Moles/Vol] 4.0 mmol/L 3.5-5.1 [facility] Protein [Mass/Vol] 6.9 g/dL 6.4-8.2 [facility] Sodium [Moles/Vol] 137 mmol/L 136-145 [facility] WBC (Bld) [#/Vol] 8.8 10*3/uL 4.4-11.0 [facility] Bilirubin Test strip Ql (U)O rdered By: Lo Chu on 09-05-2023 Bilirubin Ql (U) Negative Negative [facility] Blood erythrocytes count (nu mber/volume)Ordered By: Lo Chu on 09-05-2023 RBC (Bld) [#/Vol] 4.31 10*6/uL 4.2-5.4 [facility] Blood hemoglobin measurement (mass/volume)Ordered By: Lo Chu on 09-05-2023 Hemoglobin (Bld) [Mass/Vol] 13.2 g/dL 12.0-15. 0 [facility] Blood lymphocytes/100 leukoc ytesOrdered By: Lo Chu on 09-05-2023 Lymphocytes/100 WBC (Bld) 22.2 % 19-41 [facility] Blood monocytes/100 leukocyt esOrdered By: Lo Chu on 09-05-2023 Monocytes/100 WBC (Bld) 7.5 % 0-10 [facility] Blood platelet mean volumeOr dered By: Lo Chu on 09-05-2023 Platelet mean volume (Bld) [Entitic vol] 8.7 fL 6.2-12.0 [facility] Determination of erythrocyte mean corpuscular volume (MCV)Ordered By: Lo Chu on 09-05-2023 MCV (RBC) [Entitic vol] 94.7 fL 81-99 [facility] Direct bilirubinOrdered By: Lo Chu on 09-05-2023 Bilirubin.direct [Mass/Vol] 0.19 mg/dL 0.00-0.3 0 [facility] Hematocrit Auto (Bld) [Volum e fraction]Ordered By: Lo Chu on 09-05-2023 Hematocrit (Bld) [Volume fraction] 40.8 % 37-47 [facility] Ketones Test strip Ql (U)Ord ered By: Lo Chu on 09-05-2023 Ketones Ql (U) Negative Negative [facility] Laboratory - Chemistry and C hemistry - challengeOrdered By: Lo Chu on 09-05-2023 ALP [Catalytic activity/Vol] 126 U/L 45-117 [facility] ALT [Catalytic activity/Vol] 18 U/L 13-56 [facility] CO2 [Moles/Vol] 28.0 mmol/L 21.0-32.0 [facility] Globulin (S) [Mass/Vol] 4.1 g/dL 2.2-4.2 [facility] Lipase [Catalytic activity/Vol] 12 U/L 13-75 [facility] Comment on above: Please note:LIPASE r evised reference range effective 22. New Lipase methodology. Expected to produce lower values than the previous assay method. NEW Reference Range: 13 - 75 U/L Urea nitrogen/Creatinine [Mass ratio] 15.6 mg/mg 10-20 [facility] Laboratory - Hematology and Cell countsOrdered By: Lo Chu on 09-05-2023 Erythrocyte distribution width (RBC) [Entitic vol] 44.6 fL 35.1-43.9 [facility] Erythrocyte distribution width (RBC) [Ratio] 12.9 % 11.6-14.6 [facility] Immature granulocytes/100 WBC (Bld) 0.600 % 0.0-0.9 [facility] Comment on above: IG% - Immature Granu locytes (promyelocytes, myelocytes and metamyelocytes) > 1% indicates that a LEFT SHIFT is Present. MCH (RBC) [Entitic mass] 30.6 pg 27.0-32.0 [facility] Nucleated RBC/100 WBC (Bld) [Ratio] 0 % 0-5 [facility] MCHC Auto (RBC) [Mass/Vol]Or dered By: Lo Chu on 09-05-2023 MCHC (RBC) [Mass/Vol] 32.4 g/dL 32-36 [facility] Mucus LM Ql (Urine sed)Order ed By: Lo Chu on 09-05-2023 Mucus Ql (Urine sed) 0 SEEN /hpf [facility] Nitrite Test strip Ql (U)Ord ered By: Lo Chu on 09-05-2023 Nitrite Ql (U) Negative Negative [facility] No Panel InformationOrdered By: Lo Chu on 09-05-2023 Estimated GFR (MDRD) Amer 81 mL/min >60 [facility] Comment on above: GFR Calc Estimated GFR (MDRD) Non-Af Amer 67 mL/min >60 [facility] Comment on above: Non- GFR Calc 30.6 pg 27.0-32.0 [facility] 12.9 % 11.6-14.6 [facility] 44.6 fl 35.1-43.9 [facility] 0.600 % 0.0-0.9 [facility] 0 % 0-5 [facility] 67 mL/min >60 [facility] 81 mL/min >60 [facility] 15.6 RATIO 10-20 [facility] 4.1 g/dL 2.2-4.2 [facility] 12 U/L 13-75 [facility] 126 U/L 45-117 [facility] 18 U/L 13-56 [facility] 28.0 mmol/L 21.0-32.0 [facility] Platelets bldOrdered By: Lainey Chu on 09-05-2023 Platelets (Bld) [#/Vol] 258 10*3/uL 150-450 [facility] Protein Test strip Ql (U)Ord ered By: Lo Chu on 09-05-2023 Protein Ql (U) Negative Negative [facility] Serum or plasma albumin areli urement (mass/volume)Ordered By: Lo Chu on 09-05-2023 Albumin [Mass/Vol] 2.8 g/dL 3.2-5.0 [facility] Serum or plasma calcium areli urement (mass/volume)Ordered By: Lo Chu on 09-05-2023 Calcium [Mass/Vol] 9.4 mg/dL 8.5-10.1 [facility] Serum or plasma creatinine m easurement (mass/volume)Ordered By: Lo Chu on 09-05-2023 Creatinine [Mass/Vol] 0.90 mg/dL 0.55-1.02 [facility] Comment on above: The validity of the calculated GFR & GFRAA in patients over 70 years has not been determined. Clinical correlation is essential. Serum or plasma urea nitroge n measurement (mass/volume)Ordered By: Lo Chu on 09-05-2023 Urea nitrogen [Mass/Vol] 14 mg/dL 7-18 [facility] Squamous epithelial cells de tection in urine sediment by light microscopyOrdered By: Lo Chu on 09-05-2023 Epithelial cells.squamous LM Ql (Urine sed) 0 SEEN /hpf 5-10 [facility] Thin prep Papanicolaou smear with manual screeningOrdered By: Lo Chu on 09-05-2023 Thin prep Papanicolaou smear with manual screening 14 U/L 15-37 [facility] Thin prep Papanicolaou smear with manual screening 4 5-15 [facility] Urine blood detectionOrdered By: Lo Chu on 09-05-2023 RBC Ql (U) 10 /ul Negative [facility] RBC Ql (U) 0 SEEN /hpf 0-5 [facility] Urine clarityOrdered By: Lainey Chu on 09-05-2023 Clarity (U) Clear Clear [facility] Urine color determinationOrd ered By: Lo Chu on 09-05-2023 Color (U) Yellow Yellow [facility] Urine glucose detectionOrder ed By: Lo Chu on 09-05-2023 Glucose Ql (U) Normal mg/dl Normal [facility] Urine leukocyte esterase det ection by dipstickOrdered By: Lo Chu on 09-05-2023 Leukocyte esterase Test strip Ql (U) Negative Negative [facility] Urine pHOrdered By: Lo Chu on 09-05-2023 pH (U) 7.0 [pH] 5.0 - 8.0 [facility] Urine sediment bacteria coun t by microscopy (number/high power field)Ordered By: Lo Chu on 09-05-2023 Bacteria LM.HPF (Urine sed) [#/Area] 0 /[HPF] None Seen [facility] Urine specific gravity measu rementOrdered By: Lo Chu on 09-05-2023 Specific gravity (U) [Rel density] 1.010 1.002-1.03 0 [facility] Urobilinogen Auto test strip Ql (U)Ordered By: Lo Chu on 09-05-2023 Urobilinogen Ql (U) Normal mg/dl Normal [facility] Absolute lymphocyte countOrd ered By: Keisha Williamson on 07-29-2023 Lymphocytes Auto (Unsp spec) [#/Vol] 1.46 10*3/uL 0.83-4.51 [facility] Basophil percentageOrdered B y: Keisha Williamson on 07-29-2023 Basophil percentage 0 SEEN /hpf 0-5 [facility] Basophil percentage 131 mg/dL 74-106 [facility] Basophil percentage 6.8 g/dL 6.4-8.2 [facility] Basophil percentage 0.50 mg/dL 0.20-1.00 [facility] Basophil percentage 137 mmol/L 136-145 [facility] Basophil percentage 3.8 mmol/L 3.5-5.1 [facility] Basophil percentage 106 mmol/L 98-107 [facility] Basophils (Bld) [#/Vol] 16.2 10*3/uL 4.4-11.0 [facility] Basophils (Bld) [#/Vol] 13.4 10*3/uL 2.0-7.7 [facility] Basophils/100 WBC (Bld) 0.2 % 0-1 [facility] Basophils/100 WBC (Bld) 82.5 % 47-70 [facility] Basophils/100 WBC (Bld) 0.1 % 0-5 [facility] Bilirubin [Mass/Vol] 0.50 mg/dL 0.20-1.00 [facility] Comment on above: For patients on eltr ombopag therapy, use of Dimension [place] TBIL is not recommended. Chloride [Moles/Vol] 106 mmol/L 98-107 [facility] Eosinophils/100 WBC (Bld) 0.1 % 0-5 [facility] Glucose [Mass/Vol] 131 mg/dL 74-106 [facility] Comment on above: Fasting Glucose resu lt greater than or equal to 126 mg/dL suggests DIABETES MELLITUS per A.D.A. criteria. Neutrophils (Bld) [#/Vol] 13.4 10*3/uL 2.0-7.7 [facility] Neutrophils/100 WBC (Bld) 82.5 % 47-70 [facility] Potassium [Moles/Vol] 3.8 mmol/L 3.5-5.1 [facility] Protein [Mass/Vol] 6.8 g/dL 6.4-8.2 [facility] Sodium [Moles/Vol] 137 mmol/L 136-145 [facility] WBC (Bld) [#/Vol] 16.2 10*3/uL 4.4-11.0 [facility] Bilirubin Test strip Ql (U)O rdered By: Keisha Williamson on 07-29-2023 Bilirubin Ql (U) Negative Negative [facility] Blood erythrocytes count (nu mber/volume)Ordered By: Keisha Williamson on 07-29-2023 RBC (Bld) [#/Vol] 4.17 10*6/uL 4.2-5.4 [facility] Blood hemoglobin measurement (mass/volume)Ordered By: Keisha Williamson on 07-29-2023 Hemoglobin (Bld) [Mass/Vol] 13.2 g/dL 12.0-15. 0 [facility] Blood lymphocytes/100 leukoc ytesOrdered By: Keisha Williamson on 07-29-2023 Lymphocytes/100 WBC (Bld) 9.0 % 19-41 [facility] Blood monocytes/100 leukocyt esOrdered By: Keisha Williamson on 07-29-2023 Monocytes/100 WBC (Bld) 7.7 % 0-10 [facility] Blood platelet mean volumeOr dered By: Keisha Williamson on 07-29-2023 Platelet mean volume (Bld) [Entitic vol] 9.1 fL 6.2-12.0 [facility] Determination of erythrocyte mean corpuscular volume (MCV)Ordered By: Keisha Williamson on 07-29-2023 MCV (RBC) [Entitic vol] 95.9 fL 81-99 [facility] Hematocrit Auto (Bld) [Volum e fraction]Or[facility] on 07-29-2023 Hematocrit (Bld) [Volume fraction] 40.0 % 37-47 [facility] Ketones Test strip Ql (U)Ord ered By: [facility] on 07-29-2023 Ketones Ql (U) Negative Negative [facility] Laboratory - Chemistry and C hemistry - challengeOrdered By: Keisha Williamson on 07-29-2023 ALP [Catalytic activity/Vol] 123 U/L 45-117 [facility] ALT [Catalytic activity/Vol] 21 U/L 13-56 [facility] CO2 [Moles/Vol] 28.0 mmol/L 21.0-32.0 [facility] Globulin (S) [Mass/Vol] 3.7 g/dL 2.2-4.2 [facility] Lipase [Catalytic activity/Vol] 33 U/L 13-75 [facility] Comment on above: Please note:LIPASE r evised reference range effective 22. New Lipase methodology. Expected to produce lower values than the previous assay method. NEW Reference Range: 13 - 75 U/L Urea nitrogen/Creatinine [Mass ratio] 18.6 mg/mg 10-20 [facility] Laboratory - Hematology and Cell countsOrdered By: Keisha Williamson on 07-29-2023 Erythrocyte distribution width (RBC) [Entitic vol] 44.6 fL 35.1-43.9 [facility] Erythrocyte distribution width (RBC) [Ratio] 12.8 % 11.6-14.6 [facility] Immature granulocytes/100 WBC (Bld) 0.500 % 0.0-0.9 [facility] Comment on above: IG% - Immature Granu locytes (promyelocytes, myelocytes and metamyelocytes) > 1% indicates that a LEFT SHIFT is Present. MCH (RBC) [Entitic mass] 31.7 pg 27.0-32.0 [facility] Nucleated RBC/100 WBC (Bld) [Ratio] 0 % 0-5 [facility] MCHC Auto (RBC) [Mass/Vol]Or dered By: Keisha Williamson on 07-29-2023 MCHC (RBC) [Mass/Vol] 33.0 g/dL 32-36 [facility] Mucus LM Ql (Urine sed)Order ed By: Keisha Williamson on 07-29-2023 Mucus Ql (Urine sed) 0 SEEN /hpf [facility] Nitrite Test strip Ql (U)Ord ered By: Keisha Williamson on 07-29-2023 Nitrite Ql (U) Negative Negative [facility] No Panel InformationOrdered By: Keisha Williamson on 07-29-2023 Estimated Creatinine Clearance Calc 56.93 ml/min [facility] Estimated GFR (MDRD) Amer 79 mL/min >60 [facility] Comment on above: GFR Calc Estimated GFR (MDRD) Non-Af Amer 65 mL/min >60 [facility] Comment on above: Non- GFR Calc Troponin I High Sensitivity 30 pg/mL 3.0-54.0 [facility] Comment on above: Please Note: New Amanda t Units and Gender Specific Reference Ranges. For more information see Policy Stat Procedure [place] High Sensitivity Troponin (TNIH) and attachments. 31.7 pg 27.0-32.0 [facility] 12.8 % 11.6-14.6 [facility] 44.6 fl 35.1-43.9 [facility] 0.500 % 0.0-0.9 [facility] 0 % 0-5 [facility] 65 mL/min >60 [facility] 79 mL/min >60 [facility] 56.93 ml/min [facility] 18.6 RATIO 10-20 [facility] 3.7 g/dL 2.2-4.2 [facility] 33 U/L 13-75 [facility] 30 pg/mL 3.0-54.0 [facility] 123 U/L 45-117 [facility] 21 U/L 13-56 [facility] 28.0 mmol/L 21.0-32.0 [facility] Platelets bldOrdered By: Yanelis carrizales Clay on 07-29-2023 Platelets (Bld) [#/Vol] 242 10*3/uL 150-450 [facility] Protein Test strip Ql (U)Ord ered By: Keisha Williamson on 07-29-2023 Protein Ql (U) 15 mg/dl Negative [facility] Serum or plasma albumin areli urement (mass/volume)Ordered By: Keisha Williamson on 07-29-2023 Albumin [Mass/Vol] 3.1 g/dL 3.2-5.0 [facility] Serum or plasma albumin/glob ulin mass ratioOrdered By: Keisha Williamson on 07-29-2023 Albumin/Globulin [Mass ratio] 0.8 {ratio} 0.9-2.4 [facility] Serum or plasma calcium areli urement (mass/volume)Ordered By: Yanelisus Williamson on 07-29-2023 Calcium [Mass/Vol] 8.8 mg/dL 8.5-10.1 [facility] Serum or plasma creatinine m easurement (mass/volume)Ordered By: Keisha Williamson on 07-29-2023 Creatinine [Mass/Vol] 0.91 mg/dL 0.55-1.02 [facility] Comment on above: The validity of the calculated GFR & GFRAA in patients over 70 years has not been determined. Clinical correlation is essential. Serum or plasma urea nitroge n measurement (mass/volume)Ordered By: Keisha Williamson on 07-29-2023 Urea nitrogen [Mass/Vol] 17 mg/dL 7-18 [facility] Squamous epithelial cells de tection in urine sediment by light microscopyOrdered By: Keisha Williamson on 07-29-2023 Epithelial cells.squamous LM Ql (Urine sed) 0 SEEN /hpf 5-10 [facility] Thin prep Papanicolaou smear with manual screeningOrdered By: Keisha Williamson on 07-29-2023 Thin prep Papanicolaou smear with manual screening 16 U/L 15-37 [facility] Thin prep Papanicolaou smear with manual screening 3 5-15 [facility] Urine blood detectionOrdered By: Remus Williamson on 07-29-2023 RBC Ql (U) 10 /ul Negative [facility] RBC Ql (U) 0 SEEN /hpf 0-5 [facility] Urine clarityOrdered By: Rem us Clay on 07-29-2023 Clarity (U) Clear Clear [facility] Urine color determinationOrd ered By: Remus Williamson on 07-29-2023 Color (U) Yellow Yellow [facility] Urine glucose detectionOrder ed By: Remus Williamson on 07-29-2023 Glucose Ql (U) Normal mg/dl Normal [facility] Urine leukocyte esterase det ection by dipstickOrdered By: Remus Williamson on 07-29-2023 Leukocyte esterase Test strip Ql (U) Negative Negative [facility] Urine pHOrdered By: Keisha Malave gur on 07-29-2023 pH (U) 5.0 [pH] 5.0 - 8.0 [facility] Urine sediment bacteria coun t by microscopy (number/high power field)Ordered By: Keisha Williamson on 07-29-2023 Bacteria LM.HPF (Urine sed) [#/Area] RARE /hpf None Seen [facility] Urine specific gravity measu rementOrdered By: Keisha Williamson on 07-29-2023 Specific gravity (U) [Rel density] 1.025 1.002-1.03 0 [facility] Urobilinogen Auto test strip Ql (U)Ordered By: Keisha Williamson on 07-29-2023 Urobilinogen Ql (U) Normal mg/dl Normal [facility] Absolute lymphocyte countOrd ered By: Stefanie Soto on 07-19-2023 Lymphocytes Auto (Unsp spec) [#/Vol] 2.22 10*3/uL 0.83-4.51 [facility] Basophil percentageOrdered B y: Stefanie Soto on 07-19-2023 Basophil percentage 117 mg/dL 74-106 [facility] Basophil percentage 7.9 g/dL 6.4-8.2 [facility] Basophil percentage 0.20 mg/dL 0.20-1.00 [facility] Basophil percentage 138 mmol/L 136-145 [facility] Basophil percentage 4.2 mmol/L 3.5-5.1 [facility] Basophil percentage 102 mmol/L 98-107 [facility] Basophils (Bld) [#/Vol] 8.5 10*3/uL 4.4-11.0 [facility] Basophils (Bld) [#/Vol] 5.3 10*3/uL 2.0-7.7 [facility] Basophils/100 WBC (Bld) 0.8 % 0-1 [facility] Basophils/100 WBC (Bld) 62.2 % 47-70 [facility] Basophils/100 WBC (Bld) 3.4 % 0-5 [facility] Bilirubin [Mass/Vol] 0.20 mg/dL 0.20-1.00 [facility] Comment on above: For patients on eltr ombopag therapy, use of Dimension [place] TBIL is not recommended. Chloride [Moles/Vol] 102 mmol/L 98-107 [facility] Eosinophils/100 WBC (Bld) 3.4 % 0-5 [facility] Glucose [Mass/Vol] 117 mg/dL 74-106 [facility] Comment on above: Fasting Glucose resu lt from 100 to 125 mg/dL suggests IMPAIRED HOMEOSTASIS per A.D.A. criteria. Neutrophils (Bld) [#/Vol] 5.3 10*3/uL 2.0-7.7 [facility] Neutrophils/100 WBC (Bld) 62.2 % 47-70 [facility] Potassium [Moles/Vol] 4.2 mmol/L 3.5-5.1 [facility] Protein [Mass/Vol] 7.9 g/dL 6.4-8.2 [facility] Sodium [Moles/Vol] 138 mmol/L 136-145 [facility] WBC (Bld) [#/Vol] 8.5 10*3/uL 4.4-11.0 [facility] Blood erythrocytes count (nu mber/volume)Ordered By: Stefanie Soto on 07-19-2023 RBC (Bld) [#/Vol] 4.76 10*6/uL 4.2-5.4 [facility] Blood hemoglobin measurement (mass/volume)Ordered By: Stefanie Soto on 07-19-2023 Hemoglobin (Bld) [Mass/Vol] 14.8 g/dL 12.0-15. 0 [facility] Blood lymphocytes/100 leukoc ytesOrdered By: Stefnaie Soto on 07-19-2023 Lymphocytes/100 WBC (Bld) 26.1 % 19-41 [facility] Blood monocytes/100 leukocyt esOrdered By: Stefanie Soto on 07-19-2023 Monocytes/100 WBC (Bld) 7.0 % 0-10 [facility] Blood platelet mean volumeOr dered By: Stefanie Soto on 07-19-2023 Platelet mean volume (Bld) [Entitic vol] 9.3 fL 6.2-12.0 [facility] Determination of erythrocyte mean corpuscular volume (MCV)Ordered By: Stefanie Soto on 07-19-2023 MCV (RBC) [Entitic vol] 97.9 fL 81-99 [facility] Hematocrit Auto (Bld) [Volum e fraction]Ordered By: Stefanie Soto on 07-19-2023 Hematocrit (Bld) [Volume fraction] 46.6 % 37-47 [facility] Laboratory - Chemistry and C hemistry - challengeOrdered By: Stefanie Soto on 07-19-2023 ALP [Catalytic activity/Vol] 152 U/L 45-117 [facility] ALT [Catalytic activity/Vol] 33 U/L 13-56 [facility] CO2 [Moles/Vol] 35.0 mmol/L 21.0-32.0 [facility] Globulin (S) [Mass/Vol] 4.2 g/dL 2.2-4.2 [facility] Lipase [Catalytic activity/Vol] 19 U/L 13-75 [facility] Comment on above: Please note:LIPASE r evised reference range effective 22. New Lipase methodology. Expected to produce lower values than the previous assay method. NEW Reference Range: 13 - 75 U/L Urea nitrogen/Creatinine [Mass ratio] 19.2 mg/mg 10-20 [facility] Laboratory - Hematology and Cell countsOrdered By: Stefanie Soto on 07-19-2023 Erythrocyte distribution width (RBC) [Entitic vol] 46.8 fL 35.1-43.9 [facility] Erythrocyte distribution width (RBC) [Ratio] 13.0 % 11.6-14.6 [facility] Immature granulocytes/100 WBC (Bld) 0.500 % 0.0-0.9 [facility] Comment on above: IG% - Immature Granu locytes (promyelocytes, myelocytes and metamyelocytes) > 1% indicates that a LEFT SHIFT is Present. MCH (RBC) [Entitic mass] 31.1 pg 27.0-32.0 [facility] Nucleated RBC/100 WBC (Bld) [Ratio] 0 % 0-5 [facility] MCHC Auto (RBC) [Mass/Vol]Or dered By: Stefanie Soto on 07-19-2023 MCHC (RBC) [Mass/Vol] 31.8 g/dL 32-36 [facility] No Panel InformationOrdered By: Stefanie Soto on 07-19-2023 Troponin I High Sensitivity 26 pg/mL 3.0-54.0 [facility] Comment on above: Please Note: New Amanda t Units and Gender Specific Reference Ranges. For more information see Policy Stat Procedure [place] High Sensitivity Troponin (TNIH) and attachments. 26 pg/mL 3.0-54.0 [facility] Estimated Creatinine Clearance Calc 43.17 ml/min [facility] Estimated GFR (MDRD) Amer 58 mL/min >60 [facility] Comment on above: GFR Calc Estimated GFR (MDRD) Non-Af Amer 48 mL/min >60 [facility] Comment on above: Non- GFR Calc 31.1 pg 27.0-32.0 [facility] 13.0 % 11.6-14.6 [facility] 46.8 fl 35.1-43.9 [facility] 0.500 % 0.0-0.9 [facility] 0 % 0-5 [facility] 48 mL/min >60 [facility] 58 mL/min >60 [facility] 43.17 ml/min [facility] 19.2 RATIO 10-20 [facility] 4.2 g/dL 2.2-4.2 [facility] 19 U/L 13-75 [facility] 152 U/L 45-117 [facility] 33 U/L 13-56 [facility] 35.0 mmol/L 21.0-32.0 [facility] Platelets bldOrdered By: Kelly hanson Brittany on 07-19-2023 Platelets (Bld) [#/Vol] 287 10*3/uL 150-450 [facility] Serum or plasma albumin areli urement (mass/volume)Ordered By: Stefanie Soto on 07-19-2023 Albumin [Mass/Vol] 3.7 g/dL 3.2-5.0 [facility] Serum or plasma albumin/glob ulin mass ratioOrdered By: Stefanie Soto on 07-19-2023 Albumin/Globulin [Mass ratio] 0.9 {ratio} 0.9-2.4 [facility] Serum or plasma calcium areli urement (mass/volume)Ordered By: Stefanie Soto on 07-19-2023 Calcium [Mass/Vol] 9.3 mg/dL 8.5-10.1 [facility] Serum or plasma creatinine m easurement (mass/volume)Ordered By: Stefanie Soto on 07-19-2023 Creatinine [Mass/Vol] 1.20 mg/dL 0.55-1.02 [facility] Comment on above: The validity of the calculated GFR & GFRAA in patients over 70 years has not been determined. Clinical correlation is essential. Serum or plasma urea nitroge n measurement (mass/volume)Ordered By: Stefanie Soto on 07-19-2023 Urea nitrogen [Mass/Vol] 23 mg/dL 7-18 [facility] Thin prep Papanicolaou smear with manual screeningOrdered By: Stefanie Soto on 07-19-2023 Thin prep Papanicolaou smear with manual screening 22 U/L 15-37 [facility] Thin prep Papanicolaou smear with manual screening 1 5-15 [facility] Absolute lymphocyte countOrd ered By: Marsha Alonso on 07-16-2023 Lymphocytes Auto (Unsp spec) [#/Vol] 2.38 10*3/uL 0.83-4.51 [facility] Basophil percentageOrdered B y: Marsha Alonso on 07-16-2023 Basophil percentage 115 mg/dL 74-106 [facility] Basophil percentage 139 mmol/L 136-145 [facility] Basophil percentage 4.5 mmol/L 3.5-5.1 [facility] Basophil percentage 106 mmol/L 98-107 [facility] Basophils (Bld) [#/Vol] 6.9 10*3/uL 4.4-11.0 [facility] Basophils (Bld) [#/Vol] 3.6 10*3/uL 2.0-7.7 [facility] Basophils/100 WBC (Bld) 0.9 % 0-1 [facility] Basophils/100 WBC (Bld) 52.0 % 47-70 [facility] Basophils/100 WBC (Bld) 4.1 % 0-5 [facility] Chloride [Moles/Vol] 106 mmol/L 98-107 [facility] Eosinophils/100 WBC (Bld) 4.1 % 0-5 [facility] Glucose [Mass/Vol] 115 mg/dL 74-106 [facility] Comment on above: Fasting Glucose resu lt from 100 to 125 mg/dL suggests IMPAIRED HOMEOSTASIS per A.D.A. criteria. Neutrophils (Bld) [#/Vol] 3.6 10*3/uL 2.0-7.7 [facility] Neutrophils/100 WBC (Bld) 52.0 % 47-70 [facility] Potassium [Moles/Vol] 4.5 mmol/L 3.5-5.1 [facility] Sodium [Moles/Vol] 139 mmol/L 136-145 [facility] WBC (Bld) [#/Vol] 6.9 10*3/uL 4.4-11.0 [facility] Blood erythrocytes count (nu mber/volume)Ordered By: Marsha Alonso on 07-16-2023 RBC (Bld) [#/Vol] 4.53 10*6/uL 4.2-5.4 [facility] Blood hemoglobin measurement (mass/volume)Ordered By: Marsha Alonso on 07-16-2023 Hemoglobin (Bld) [Mass/Vol] 14.4 g/dL 12.0-15. 0 [facility] Blood lymphocytes/100 leukoc ytesOrdered By: Marsha Alonso on 07-16-2023 Lymphocytes/100 WBC (Bld) 34.4 % 19-41 [facility] Blood monocytes/100 leukocyt esOrdered By: Marsha Alonso on 07-16-2023 Monocytes/100 WBC (Bld) 8.2 % 0-10 [facility] Blood platelet mean volumeOr dered By: Marsha Alonso on 07-16-2023 Platelet mean volume (Bld) [Entitic vol] 9.1 fL 6.2-12.0 [facility] Determination of erythrocyte mean corpuscular volume (MCV)Ordered By: Marsha Alonso on 07-16-2023 MCV (RBC) [Entitic vol] 98.5 fL 81-99 [facility] Hematocrit Auto (Bld) [Volum e fraction]Ordered By: Marsha Alonso on 07-16-2023 Hematocrit (Bld) [Volume fraction] 44.6 % 37-47 [facility] Laboratory - Chemistry and C hemistry - challengeOrdered By: Marsha Alonso on 07-16-2023 CO2 [Moles/Vol] 31.0 mmol/L 21.0-32.0 [facility] Natriuretic peptide B (Bld) [Mass/Vol] 80.9 pg/mL 0-100 [facility] Urea nitrogen/Creatinine [Mass ratio] 17.7 mg/mg 10-20 [facility] Laboratory - Hematology and Cell countsOrdered By: Marsha Alonso on 07-16-2023 Erythrocyte distribution width (RBC) [Entitic vol] 47.7 fL 35.1-43.9 [facility] Erythrocyte distribution width (RBC) [Ratio] 13.2 % 11.6-14.6 [facility] Immature granulocytes/100 WBC (Bld) 0.400 % 0.0-0.9 [facility] Comment on above: IG% - Immature Granu locytes (promyelocytes, myelocytes and metamyelocytes) > 1% indicates that a LEFT SHIFT is Present. MCH (RBC) [Entitic mass] 31.8 pg 27.0-32.0 [facility] Nucleated RBC/100 WBC (Bld) [Ratio] 0 % 0-5 [facility] MCHC Auto (RBC) [Mass/Vol]Or dered By: Marsha Alonso on 07-16-2023 MCHC (RBC) [Mass/Vol] 32.3 g/dL 32-36 [facility] No Panel InformationOrdered By: Marsha Alonso on 07-16-2023 Estimated GFR (MDRD) Amer 56 mL/min >60 [facility] Comment on above: GFR Calc Estimated GFR (MDRD) Non-Af Amer 46 mL/min >60 [facility] Comment on above: Non- GFR Calc 31.8 pg 27.0-32.0 [facility] 13.2 % 11.6-14.6 [facility] 47.7 fl 35.1-43.9 [facility] 0.400 % 0.0-0.9 [facility] 0 % 0-5 [facility] 46 mL/min >60 [facility] 56 mL/min >60 [facility] 17.7 RATIO 10-20 [facility] 31.0 mmol/L 21.0-32.0 [facility] 80.9 pg/mL 0-100 [facility] Platelets bldOrdered By: Adrian Alonso on 07-16-2023 Platelets (Bld) [#/Vol] 256 10*3/uL 150-450 [facility] Serum or plasma calcium areli urement (mass/volume)Ordered By: Marsha Alonso on 07-16-2023 Calcium [Mass/Vol] 9.3 mg/dL 8.5-10.1 [facility] Serum or plasma creatinine m easurement (mass/volume)Ordered By: Marsha Alonso on 07-16-2023 Creatinine [Mass/Vol] 1.24 mg/dL 0.55-1.02 [facility] Comment on above: The validity of the calculated GFR & GFRAA in patients over 70 years has not been determined. Clinical correlation is essential. Serum or plasma urea nitroge n measurement (mass/volume)Ordered By: Marsha Alonso on 07-16-2023 Urea nitrogen [Mass/Vol] 22 mg/dL 7-18 [facility] Thin prep Papanicolaou smear with manual screeningOrdered By: Marsha Alonso on 07-16-2023 Thin prep Papanicolaou smear with manual screening 2 5-15 [facility] Laboratory - Drug toxicology Ordered By: Alok Forrest on 06-25-2023 Amphetamines Ql (U) Negative <1000 ng/mL [facility] Benzodiazepines Ql (U) Positive < 200 ng/mL [facility] Cannabinoids Screen Ql (U) Negative < 50 ng/m L [facility] Cocaine Ql (U) Negative < 300 ng/mL [facility] Opiates Ql (U) Positive < 300 ng/mL [facility] No Panel InformationOrdered By: Alok Forrest on 06-25-2023 MDMA (Ecstasy) Screen Negative < 500 ng/mL [facility] Miscellaneous Test See comment [facility] Comment on above: TEST RESULTS LIMITS7 21050 6+Oxycodone-BundAmphetamines, Urine Negative ng/mL Ucqzxc=8605 Amphetamine test includes Amphetamine and Methamphetamine.Barbiturate Negative ng/mL Dnokzr=999 Benzodiazepines Positive ng/mL Wleoia=064 Please Note: Confirmation performed by Mass Spectrometry Nordiazepam Negative Guoprb=534 Oxazepam Negative Icnbje=120 Flurazepam Negative Tgorga=859 Lorazepam Positive Lorazepam Conf, [place], [place] 2388 ng/mL Kkvgak=801 Alprazolam Negative Xyhxgf=929 Clonazepam Negative Vsticv=994 Temazepam Negative Bxikgm=641 Triazolam Negative Iufncn=305 Midazolam Positive Midazolam Conf, [place], UR 900 ng/mL Ersipn=754 Cannabinoids Negative ng/mL Cutoff=20 Cocaine (Metabolite) Negative ng/mL Litpbm=713 Opiate test includes Codeine, Morphine, Hydromorphone, Hydrocodone. Please Note: Confirmation performed by Mass Spectrometry Codeine Negative Nkiycu=843 Morphine Positive Morphine Conf, MS, UR 371 ng/mL Wborbb=786 Hydromorphone Positive Hydromorphone Conf, MS, UR 404 ng/mL Mclzge=589 Hydrocodone Positive Hydrocodone Conf[place], [place] 1402 ng/mL Ixlkdq=211 Oxycodone/Oxymorphone, Urine Negative ng/mL Cxywrv=618 Test includes Oxycodone and Oxymorphone TESTING PERFORMED AT [facility]. ORIGINAL REPORT ON FILE IN LAB CONTAINS ADDITIONAL TEST SITE INFORMATION. Urine Barbiturates Screen Negative < 200 ng/mL [facility] Urine Drug Screen Comment [facility] Comment on above: CONFIRMATORY TESTING FOR [...] Urine Methadone Screen Negative < 300 ng/mL [facility] Negative < 50 ng/mL [facility] Positive < 300 ng/mL [facility] See comment [facility] Urine phencyclidine (PCP) de tectionOrdered By: Alok Forrest on 06-25-2023 Phencyclidine Ql (U) Negative < 25 ng/mL [facility] Absolute lymphocyte countOrd ered By: Lo Chu on 06-23-2023 Lymphocytes Auto (Unsp spec) [#/Vol] 2.22 10*3/uL 0.83-4.51 [facility] Basophil percentageOrdered B y: Lo Chu on 06-23-2023 Basophil percentage 0 SEEN /hpf 0-5 [facility] Basophil percentage 7.1 g/dL 6.4-8.2 [facility] Basophil percentage 0.20 mg/dL 0.20-1.00 [facility] Bilirubin [Mass/Vol] 0.20 mg/dL 0.20-1.00 [facility] Comment on above: For patients on eltr ombopag therapy, use of Dimension [place] TBIL is not recommended. Protein [Mass/Vol] 7.1 g/dL 6.4-8.2 [facility] Basophil percentage 109 mg/dL 74-106 [facility] Basophil percentage 142 mmol/L 136-145 [facility] Basophil percentage 4.2 mmol/L 3.5-5.1 [facility] Basophil percentage 110 mmol/L 98-107 [facility] Basophils (Bld) [#/Vol] 8.3 10*3/uL 4.4-11.0 [facility] Basophils (Bld) [#/Vol] 5.0 10*3/uL 2.0-7.7 [facility] Basophils/100 WBC (Bld) 0.7 % 0-1 [facility] Basophils/100 WBC (Bld) 60.5 % 47-70 [facility] Basophils/100 WBC (Bld) 4.4 % 0-5 [facility] Chloride [Moles/Vol] 110 mmol/L 98-107 [facility] Eosinophils/100 WBC (Bld) 4.4 % 0-5 [facility] Glucose [Mass/Vol] 109 mg/dL 74-106 [facility] Comment on above: Fasting Glucose resu lt from 100 to 125 mg/dL suggests IMPAIRED HOMEOSTASIS per A.D.A. criteria. Neutrophils (Bld) [#/Vol] 5.0 10*3/uL 2.0-7.7 [facility] Neutrophils/100 WBC (Bld) 60.5 % 47-70 [facility] Potassium [Moles/Vol] 4.2 mmol/L 3.5-5.1 [facility] Sodium [Moles/Vol] 142 mmol/L 136-145 [facility] WBC (Bld) [#/Vol] 8.3 10*3/uL 4.4-11.0 [facility] Bilirubin Test strip Ql (U)O rdered By: Lo Chu on 06-23-2023 Bilirubin Ql (U) Negative Negative [facility] Blood erythrocytes count (nu mber/volume)Ordered By: Lo Chu on 06-23-2023 RBC (Bld) [#/Vol] 4.53 10*6/uL 4.2-5.4 [facility] Blood hemoglobin measurement (mass/volume)Ordered By: Lo Chu on 06-23-2023 Hemoglobin (Bld) [Mass/Vol] 14.0 g/dL 12.0-15. 0 [facility] Blood lymphocytes/100 leukoc ytesOrdered By: Lo Chu on 06-23-2023 Lymphocytes/100 WBC (Bld) 26.9 % 19-41 [facility] Blood monocytes/100 leukocyt esOrdered By: Lo Chu on 06-23-2023 Monocytes/100 WBC (Bld) 6.9 % 0-10 [facility] Blood platelet mean volumeOr dered By: Lo Chu on 06-23-2023 Platelet mean volume (Bld) [Entitic vol] 9.1 fL 6.2-12.0 [facility] COVID-19 virus antigen assay Ordered By: Lo Chu on 06-23-2023 SARS-CoV-2 (COVID-19) Ag IA.rapid Ql (Resp) [facility] SARS-CoV-2 (COVID-19) Ag IA.rapid Ql (Resp) [facility] Determination of erythrocyte mean corpuscular volume (MCV)Ordered By: Lo Chu on 06-23-2023 MCV (RBC) [Entitic vol] 96.0 fL 81-99 [facility] Direct bilirubinOrdered By: Lo Chu on 06-23-2023 Bilirubin.direct [Mass/Vol] 0.09 mg/dL 0.00-0.3 0 [facility] Hematocrit Auto (Bld) [Volum e fraction]Ordered By: Lo Chu on 06-23-2023 Hematocrit (Bld) [Volume fraction] 43.5 % 37-47 [facility] Ketones Test strip Ql (U)Ord ered By: Lo Chu on 06-23-2023 Ketones Ql (U) Negative Negative [facility] Laboratory - Chemistry and C hemistry - challengeOrdered By: Lo Chu on 06-23-2023 ALP [Catalytic activity/Vol] 134 U/L 45-117 [facility] ALT [Catalytic activity/Vol] 27 U/L 13-56 [facility] Globulin (S) [Mass/Vol] 3.8 g/dL 2.2-4.2 [facility] Lipase [Catalytic activity/Vol] 17 U/L 13-75 [facility] Comment on above: Please note:LIPASE r evised reference range effective 22. New Lipase methodology. Expected to produce lower values than the previous assay method. NEW Reference Range: 13 - 75 U/L CO2 [Moles/Vol] 28.0 mmol/L 21.0-32.0 [facility] Urea nitrogen/Creatinine [Mass ratio] 23.8 mg/mg 10- [facility] Laboratory - Hematology and Cell countsOrdered By: Lo Chu on 06-23-2023 Erythrocyte distribution width (RBC) [Entitic vol] 45.9 fL 35.1-43.9 [facility] Erythrocyte distribution width (RBC) [Ratio] 13.1 % 11.6-14.6 [facility] Immature granulocytes/100 WBC (Bld) 0.600 % 0.0-0.9 [facility] Comment on above: IG% - Immature Granu locytes (promyelocytes, myelocytes and metamyelocytes) > 1% indicates that a LEFT SHIFT is Present. MCH (RBC) [Entitic mass] 30.9 pg 27.0-32.0 [facility] Nucleated RBC/100 WBC (Bld) [Ratio] 0 % 0-5 [facility] MCHC Auto (RBC) [Mass/Vol]Or dered By: Lo Chu on 06-23-2023 MCHC (RBC) [Mass/Vol] 32.2 g/dL 32-36 [facility] Mucus LM Ql (Urine sed)Order ed By: Lo Chu on 06-23-2023 Mucus Ql (Urine sed) 0 SEEN /hpf [facility] Nitrite Test strip Ql (U)Ord ered By: Lo Chu on 06-23-2023 Nitrite Ql (U) Negative Negative [facility] No Panel InformationOrdered By: Lo Chu on 06-23-2023 Troponin I High Sensitivity 28 pg/mL 3.0-54.0 [facility] Comment on above: Please Note: New Amanda t Units and Gender Specific Reference Ranges. For more information see Policy Stat Procedure [place] High Sensitivity Troponin (TNIH) and attachments. 28 pg/mL 3.0-54.0 [facility] 3.8 g/dL 2.2-4.2 [facility] 17 U/L 13-75 [facility] 134 U/L 45-117 [facility] 27 U/L 13-56 [facility] Estimated Creatinine Clearance Calc 47.42 ml/min [facility] Estimated GFR (MDRD) Amer 67 mL/min >60 [facility] Comment on above: GFR Calc Estimated GFR (MDRD) Non-Af Amer 56 mL/min >60 [facility] Comment on above: Non- GFR Calc 30.9 pg 27.0-32.0 [facility] 13.1 % 11.6-14.6 [facility] 45.9 fl 35.1-43.9 [facility] 0.600 % 0.0-0.9 [facility] 0 % 0-5 [facility] 56 mL/min >60 [facility] 67 mL/min >60 [facility] 47.42 ml/min [facility] 23.8 RATIO 10-20 [facility] 28.0 mmol/L 21.0-32.0 [facility] Platelets bldOrdered By: Lainey Chu on 06-23-2023 Platelets (Bld) [#/Vol] 222 10*3/uL 150-450 [facility] Protein Test strip Ql (U)Ord ered By: Lo Chu on 06-23-2023 Protein Ql (U) 15 mg/dl Negative [facility] Serum or plasma albumin areli urement (mass/volume)Ordered By: Lo Chu on 06-23-2023 Albumin [Mass/Vol] 3.3 g/dL 3.2-5.0 [facility] Serum or plasma calcium areli urement (mass/volume)Ordered By: Lo Chu on 06-23-2023 Calcium [Mass/Vol] 9.2 mg/dL 8.5-10.1 [facility] Serum or plasma creatinine m easurement (mass/volume)Ordered By: Lo Chu on 06-23-2023 Creatinine [Mass/Vol] 1.05 mg/dL 0.55-1.02 [facility] Comment on above: The validity of the calculated GFR & GFRAA in patients over 70 years has not been determined. Clinical correlation is essential. Serum or plasma urea nitroge n measurement (mass/volume)Ordered By: Lo Chu on 06-23-2023 Urea nitrogen [Mass/Vol] 25 mg/dL 7-18 [facility] Squamous epithelial cells de tection in urine sediment by light microscopyOrdered By: Lo Chu on 06-23-2023 Epithelial cells.squamous LM Ql (Urine sed) 0-5 SEEN /hpf 5-10 [facility] Thin prep Papanicolaou smear with manual screeningOrdered By: Lo Chu on 06-23-2023 Thin prep Papanicolaou smear with manual screening 23 U/L 15-37 [facility] Thin prep Papanicolaou smear with manual screening 4 5-15 [facility] Urine blood detectionOrdered By: Lo Chu on 06-23-2023 RBC Ql (U) 10 /ul Negative [facility] RBC Ql (U) 0 SEEN /hpf 0-5 [facility] Urine clarityOrdered By: Lainey Chu on 06-23-2023 Clarity (U) Clear Clear [facility] Urine color determinationOrd ered By: Lo Chu on 06-23-2023 Color (U) Yellow Yellow [facility] Urine glucose detectionOrder ed By: Lo Chu on 06-23-2023 Glucose Ql (U) Normal mg/dl Normal [facility] Urine leukocyte esterase det ection by dipstickOrdered By: Lo Chu on 06-23-2023 Leukocyte esterase Test strip Ql (U) 25 /ul Negative [facility] Urine pHOrdered By: Lo Chu on 06-23-2023 pH (U) 6.0 [pH] 5.0 - 8.0 [facility] Urine sediment bacteria coun t by microscopy (number/high power field)Ordered By: Lo Chu on 06-23-2023 Bacteria LM.HPF (Urine sed) [#/Area] 0 /[HPF] None Seen [facility] Urine specific gravity measu rementOrdered By: Lo Chu on 06-23-2023 Specific gravity (U) [Rel density] 1.020 1.002-1.03 0 [facility] Urobilinogen Auto test strip Ql (U)Ordered By: Lo Chu on 06-23-2023 Urobilinogen Ql (U) Normal mg/dl Normal [facility] Absolute lymphocyte countOrd ered By: Ross Lou on 09-25-2023 Lymphocytes Auto (Unsp spec) [#/Vol] 2.63 10*3/uL 0.83-4.51 [facility] Basophil percentageOrdered B y: Ross Lou on 06-01-2023 Basophil percentage 114 mg/dL 74-106 [facility] Basophil percentage 6.9 g/dL 6.4-8.2 [facility] Basophil percentage 0.40 mg/dL 0.20-1.00 [facility] Basophil percentage 140 mmol/L 136-145 [facility] Basophil percentage 4.0 mmol/L 3.5-5.1 [facility] Basophil percentage 106 mmol/L 98-107 [facility] Basophils (Bld) [#/Vol] 8.0 10*3/uL 4.4-11.0 [facility] Basophils (Bld) [#/Vol] 4.3 10*3/uL 2.0-7.7 [facility] Basophils/100 WBC (Bld) 0.7 % 0-1 [facility] Basophils/100 WBC (Bld) 53.3 % 47-70 [facility] Basophils/100 WBC (Bld) 4.5 % 0-5 [facility] Bilirubin [Mass/Vol] 0.40 mg/dL 0.20-1.00 [facility] Comment on above: For patients on eltr ombopag therapy, use of Dimension [place] TBIL is not recommended. Chloride [Moles/Vol] 106 mmol/L 98-107 [facility] Eosinophils/100 WBC (Bld) 4.5 % 0-5 [facility] Glucose [Mass/Vol] 114 mg/dL 74-106 [facility] Comment on above: Fasting Glucose resu lt from 100 to 125 mg/dL suggests IMPAIRED HOMEOSTASIS per A.D.A. criteria. Neutrophils (Bld) [#/Vol] 4.3 10*3/uL 2.0-7.7 [facility] Neutrophils/100 WBC (Bld) 53.3 % 47-70 [facility] Potassium [Moles/Vol] 4.0 mmol/L 3.5-5.1 [facility] Protein [Mass/Vol] 6.9 g/dL 6.4-8.2 [facility] Sodium [Moles/Vol] 140 mmol/L 136-145 [facility] WBC (Bld) [#/Vol] 8.0 10*3/uL 4.4-11.0 [facility] Blood erythrocytes count (nu mber/volume)Ordered By: Ross Lou on 06-01-2023 RBC (Bld) [#/Vol] 4.64 10*6/uL 4.2-5.4 [facility] Blood hemoglobin measurement (mass/volume)Ordered By: Ross Lou on 06-01-2023 Hemoglobin (Bld) [Mass/Vol] 14.5 g/dL 12.0-15. 0 [facility] Blood lymphocytes/100 leukoc ytesOrdered By: Ross Lou on 06-01-2023 Lymphocytes/100 WBC (Bld) 32.8 % 19-41 [facility] Blood monocytes/100 leukocyt esOrdered By: Ross Lou on 06-01-2023 Monocytes/100 WBC (Bld) 7.7 % 0-10 [facility] Blood platelet mean volumeOr dered By: Ross Lou on 06-01-2023 Platelet mean volume (Bld) [Entitic vol] 8.9 fL 6.2-12.0 [facility] Determination of erythrocyte mean corpuscular volume (MCV)Ordered By: Ross Lou on 06-01-2023 MCV (RBC) [Entitic vol] 92.7 fL 81-99 [facility] Direct bilirubinOrdered By: Ross Lou on 06-01-2023 Bilirubin.direct [Mass/Vol] 0.10 mg/dL 0.00-0.3 0 [facility] Hematocrit Auto (Bld) [Volum e fraction]Ordered By: Ross Lou on 06-01-2023 Hematocrit (Bld) [Volume fraction] 43.0 % 37-47 [facility] Laboratory - Chemistry and C hemistry - challengeOrdered By: Ross Lou on 06-01-2023 ALP [Catalytic activity/Vol] 129 U/L 45-117 [facility] ALT [Catalytic activity/Vol] 17 U/L 13-56 [facility] CO2 [Moles/Vol] 30.0 mmol/L 21.0-32.0 [facility] Globulin (S) [Mass/Vol] 3.5 g/dL 2.2-4.2 [facility] Lipase [Catalytic activity/Vol] 19 U/L 13-75 [facility] Comment on above: Please note:LIPASE r evised reference range effective 22. New Lipase methodology. Expected to produce lower values than the previous assay method. NEW Reference Range: 13 - 75 U/L Urea nitrogen/Creatinine [Mass ratio] 16.2 mg/mg 10-20 [facility] Laboratory - Hematology and Cell countsOrdered By: Ross Lou on 06-01-2023 Erythrocyte distribution width (RBC) [Entitic vol] 42.6 fL 35.1-43.9 [facility] Erythrocyte distribution width (RBC) [Ratio] 12.5 % 11.6-14.6 [facility] Immature granulocytes/100 WBC (Bld) 1.000 % 0.0-0.9 [facility] Comment on above: IG% - Immature Granu locytes (promyelocytes, myelocytes and metamyelocytes) > 1% indicates that a LEFT SHIFT is Present. MCH (RBC) [Entitic mass] 31.3 pg 27.0-32.0 [facility] Nucleated RBC/100 WBC (Bld) [Ratio] 0 % 0-5 [facility] MCHC Auto (RBC) [Mass/Vol]Or dered By: Ross Lou on 06-01-2023 MCHC (RBC) [Mass/Vol] 33.7 g/dL 32-36 [facility] No Panel InformationOrdered By: Ross Lou on 06-01-2023 Estimated Creatinine Clearance Calc 50.30 ml/min [facility] Estimated GFR (MDRD) Amer 72 mL/min >60 [facility] Comment on above: GFR Calc Estimated GFR (MDRD) Non-Af Amer 60 mL/min >60 [facility] Comment on above: Non- GFR Calc 31.3 pg 27.0-32.0 [facility] 12.5 % 11.6-14.6 [facility] 42.6 fl 35.1-43.9 [facility] 1.000 % 0.0-0.9 [facility] 0 % 0-5 [facility] 60 mL/min >60 [facility] 72 mL/min >60 [facility] 50.30 ml/min [facility] 16.2 RATIO 10-20 [facility] 3.5 g/dL 2.2-4.2 [facility] 19 U/L 13-75 [facility] 129 U/L 45-117 [facility] 17 U/L 13-56 [facility] 30.0 mmol/L 21.0-32.0 [facility] Platelets bldOrdered By: Tam Lou on 06-01-2023 Platelets (Bld) [#/Vol] 250 10*3/uL 150-450 [facility] Serum or plasma albumin areli urement (mass/volume)Ordered By: Ross Lou on 06-01-2023 Albumin [Mass/Vol] 3.4 g/dL 3.2-5.0 [facility] Serum or plasma calcium areli urement (mass/volume)Ordered By: Ross Lou on 06-01-2023 Calcium [Mass/Vol] 9.1 mg/dL 8.5-10.1 [facility] Serum or plasma creatinine m easurement (mass/volume)Ordered By: Ross Lou on 06-01-2023 Creatinine [Mass/Vol] 0.99 mg/dL 0.55-1.02 [facility] Comment on above: The validity of the calculated GFR & GFRAA in patients over 70 years has not been determined. Clinical correlation is essential. Serum or plasma urea nitroge n measurement (mass/volume)Ordered By: Ross Lou on 06-01-2023 Urea nitrogen [Mass/Vol] 16 mg/dL 7-18 [facility] Thin prep Papanicolaou smear with manual screeningOrdered By: Ross Lou on 06-01-2023 Thin prep Papanicolaou smear with manual screening 13 U/L 15-37 [facility] Thin prep Papanicolaou smear with manual screening 4 5-15 [facility] EMG(NEURO/NI)on 05-01-2023 [facility] XR Chest PA and Lateralon IMPRESSION: Stable and unremarkable exam with no acute radiographic abnormality. Corporate Tax Preparer: ANNE Transcribe Date/Time: Apr 25 2023 7:22A Dictated by : BENJAMÍN VILLEGAS MD This examination was interpreted and the report reviewed and electronically signed by: BENJAMÍN VILLEGAS MD on Apr 25 2023 7:22AM [facility] DIVISION OF RADIOLOGY * * *Final Report* [...] soft tissues: Unremarkable. DIVISION OF RADIOLOGY Provider, [facility] - 04/25/2023 * * *Final Report* * [...] unremarkable exam with no acute radiographic abnormality. Corporate Tax Preparer: PSCB Transcribe Date/Time: Apr 25 2023 7:22A Dictated by : BENJAMÍN VILLEGAS MD This examination was interpreted and the report reviewed and electronically signed by: BENJAMÍN VILLEGAS MD on Apr 25 2023 7:22AM EST [facility] XR Chest PA and LateralOrder ed By: Cc Provider on 04-25-2023 [facility] XR Chest PA and Lateralon Radiology Study observation (narrative) [facility] Absolute lymphocyte countOrd ered By: Dr. Byers on 01-16-2023 Lymphocytes Auto (Unsp spec) [#/Vol] 2.49 10*3/uL 0.83-4.51 [facility] Basophil percentageOrdered B y: Dr. Byers on 01-16-2023 Basophils/100 WBC (Bld) 0.7 % 0-1 [facility] Bilirubin [Mass/Vol] 0.50 mg/dL 0.20-1.00 [facility] Comment on above: For patients on eltr ombopag therapy, use of Dimension [place] TBIL is not recommended. Chloride [Moles/Vol] 107 mmol/L 98-107 [facility] Eosinophils/100 WBC (Bld) 3.3 % 0-5 [facility] Glucose [Mass/Vol] 106 mg/dL 74-106 [facility] Comment on above: Fasting Glucose resu lt from 100 to 125 mg/dL suggests IMPAIRED HOMEOSTASIS per A.D.A. criteria. Neutrophils (Bld) [#/Vol] 4.9 10*3/uL 2.0-7.7 [facility] Neutrophils/100 WBC (Bld) 57.9 % 47-70 [facility] Potassium [Moles/Vol] 3.7 mmol/L 3.5-5.1 [facility] Protein [Mass/Vol] 8.1 g/dL 6.4-8.2 [facility] Sodium [Moles/Vol] 143 mmol/L 136-145 [facility] WBC (Bld) [#/Vol] 8.5 10*3/uL 4.4-11.0 [facility] Blood erythrocytes count (nu mber/volume)Ordered By: Dr. Byers on 01-16-2023 RBC (Bld) [#/Vol] 4.70 10*6/uL 4.2-5.4 [facility] Blood hemoglobin measurement (mass/volume)Ordered By: Dr. Byers on 01-16-2023 Hemoglobin (Bld) [Mass/Vol] 15.0 g/dL 12.0-15. 0 [facility] Blood lymphocytes/100 leukoc ytesOrdered By: Dr. Byers on 01-16-2023 Lymphocytes/100 WBC (Bld) 29.3 % 19-41 [facility] Blood monocytes/100 leukocyt esOrdered By: Dr. Byers on 01-16-2023 Monocytes/100 WBC (Bld) 8.2 % 0-10 [facility] Blood platelet mean volumeOr dered By: Dr. Byers on 01-16-2023 Platelet mean volume (Bld) [Entitic vol] 9.7 fL 6.2-12.0 [facility] Determination of erythrocyte mean corpuscular volume (MCV)Ordered By: Dr. Byers on 01-16-2023 MCV (RBC) [Entitic vol] 98.5 fL 81-99 [facility] Hematocrit Auto (Bld) [Volum e fraction]Ordered By: Dr. Beyrs on 01-16-2023 Hematocrit (Bld) [Volume fraction] 46.3 % 37-47 [facility] Laboratory - Chemistry and C hemistry - challengeOrdered By: Dr. Byers on 01-16-2023 ALP [Catalytic activity/Vol] 208 U/L 45-117 [facility] ALT [Catalytic activity/Vol] 17 U/L 13-56 [facility] CO2 [Moles/Vol] 30.0 mmol/L 21.0-32.0 [facility] Globulin (S) [Mass/Vol] 4.4 g/dL 2.2-4.2 [facility] Lipase [Catalytic activity/Vol] 40 U/L 13-75 [facility] Comment on above: Please note:LIPASE r evised reference range effective 22. New Lipase methodology. Expected to produce lower values than the previous assay method. NEW Reference Range: 13 - 75 U/L Urea nitrogen/Creatinine [Mass ratio] 21.4 mg/mg 10-20 [facility] Laboratory - Hematology and Cell countsOrdered By: Dr. Byers on 01-16-2023 Erythrocyte distribution width (RBC) [Entitic vol] 47.9 fL 35.1-43.9 [facility] Erythrocyte distribution width (RBC) [Ratio] 13.3 % 11.6-14.6 [facility] Immature granulocytes/100 WBC (Bld) 0.600 % 0.0-0.9 [facility] Comment on above: IG% - Immature Granu locytes (promyelocytes, myelocytes and metamyelocytes) > 1% indicates that a LEFT SHIFT is Present. MCH (RBC) [Entitic mass] 31.9 pg 27.0-32.0 [facility] Nucleated RBC/100 WBC (Bld) [Ratio] 0 % 0-5 [facility] MCHC Auto (RBC) [Mass/Vol]Or dered By: Dr. Byers on 01-16-2023 MCHC (RBC) [Mass/Vol] 32.4 g/dL 32-36 [facility] No Panel InformationOrdered By: Dr. Byers on 01-16-2023 Estimated Creatinine Clearance Calc 44.46 ml/min [facility] Estimated GFR (MDRD) Amer 63 mL/min >60 [facility] Comment on above: GFR Calc Estimated GFR (MDRD) Non-Af Amer 52 mL/min >60 [facility] Comment on above: Non- GFR Calc Troponin I High Sensitivity 47 pg/mL 3.0-54.0 [facility] Comment on above: Please Note: New Amanda t Units and Gender Specific Reference Ranges. For more information see Policy Stat Procedure [place] High Sensitivity Troponin (TNIH) and attachments. Platelets bldOrdered By: Dr. Byers on 01-16-2023 Platelets (Bld) [#/Vol] 380 10*3/uL 150-450 [facility] Serum or plasma albumin areli urement (mass/volume)Ordered By: Dr. Byers on 01-16-2023 Albumin [Mass/Vol] 3.7 g/dL 3.2-5.0 [facility] Serum or plasma albumin/glob ulin mass ratioOrdered By: Dr. Byers on 01-16-2023 Albumin/Globulin [Mass ratio] 0.8 {ratio} 0.9-2.4 [facility] Serum or plasma calcium areli urement (mass/volume)Ordered By: Dr. Byers on 01-16-2023 Calcium [Mass/Vol] 10.0 mg/dL 8.5-10.1 [facility] Serum or plasma creatinine m easurement (mass/volume)Ordered By: Dr. Byers on 01-16-2023 Creatinine [Mass/Vol] 1.12 mg/dL 0.55-1.02 [facility] Comment on above: The validity of the calculated GFR & GFRAA in patients over 70 years has not been determined. Clinical correlation is essential. Serum or plasma urea nitroge n measurement (mass/volume)Ordered By: Dr. Byers on 01-16-2023 Urea nitrogen [Mass/Vol] 24 mg/dL 7-18 [facility] Thin prep Papanicolaou smear with manual screeningOrdered By: Dr. Byers on 01-16-2023 Thin prep Papanicolaou smear with manual screening 14 U/L 15-37 [facility] Thin prep Papanicolaou smear with manual screening 6 5-15 [facility] Absolute lymphocyte countOrd ered By: Dr. Chambers on 01-14-2023 Lymphocytes Auto (Unsp spec) [#/Vol] 2.57 10*3/uL 0.83-4.51 [facility] Basophil percentageOrdered B y: Dr. Chambers on 01-14-2023 Basophil percentage 0 SEEN /hpf 0-5 [facility] Basophils/100 WBC (Bld) 0.6 % 0-1 [facility] Bilirubin [Mass/Vol] 0.50 mg/dL 0.20-1.00 [facility] Comment on above: For patients on eltr ombopag therapy, use of Dimension [place] TBIL is not recommended. Chloride [Moles/Vol] 105 mmol/L 98-107 [facility] Eosinophils/100 WBC (Bld) 3.0 % 0-5 [facility] Glucose [Mass/Vol] 92 mg/dL 74-106 [facility] Neutrophils (Bld) [#/Vol] 5.1 10*3/uL 2.0-7.7 [facility] Neutrophils/100 WBC (Bld) 58.8 % 47-70 [facility] Potassium [Moles/Vol] 4.1 mmol/L 3.5-5.1 [facility] Protein [Mass/Vol] 7.5 g/dL 6.4-8.2 [facility] Sodium [Moles/Vol] 141 mmol/L 136-145 [facility] WBC (Bld) [#/Vol] 8.6 10*3/uL 4.4-11.0 [facility] Bilirubin Test strip Ql (U)O rdered By: Dr. Chambers on 01-14-2023 Bilirubin Ql (U) Negative Negative [facility] Blood erythrocytes count (nu mber/volume)Ordered By: Dr. Chambers on 01-14-2023 RBC (Bld) [#/Vol] 4.65 10*6/uL 4.2-5.4 [facility] Blood hemoglobin measurement (mass/volume)Ordered By: Dr. Chambers on 01-14-2023 Hemoglobin (Bld) [Mass/Vol] 14.7 g/dL 12.0-15. 0 [facility] Blood lymphocytes/100 leukoc ytesOrdered By: Dr. Chambers on 01-14-2023 Lymphocytes/100 WBC (Bld) 29.9 % 19-41 [facility] Blood monocytes/100 leukocyt esOrdered By: Dr. Chambers on 01-14-2023 Monocytes/100 WBC (Bld) 7.4 % 0-10 [facility] Blood platelet mean volumeOr dered By: Dr. Chambers on 01-14-2023 Platelet mean volume (Bld) [Entitic vol] 8.8 fL 6.2-12.0 [facility] Determination of erythrocyte mean corpuscular volume (MCV)Ordered By: Dr. Chambers on 01-14-2023 MCV (RBC) [Entitic vol] 96.3 fL 81-99 [facility] Hematocrit Auto (Bld) [Volum e fraction]Ordered By: Dr. Chambers on 01-14-2023 Hematocrit (Bld) [Volume fraction] 44.8 % 37-47 [facility] Ketones Test strip Ql (U)Ord ered By: Dr. Chambers on 01-14-2023 Ketones Ql (U) 15 mg/dl Negative [facility] Laboratory - Chemistry and C hemistry - challengeOrdered By: Dr. Chambers on 01-14-2023 ALP [Catalytic activity/Vol] 196 U/L 45-117 [facility] ALT [Catalytic activity/Vol] 15 U/L 13-56 [facility] CO2 [Moles/Vol] 29.0 mmol/L 21.0-32.0 [facility] Globulin (S) [Mass/Vol] 4.2 g/dL 2.2-4.2 [facility] Lipase [Catalytic activity/Vol] 27 U/L 13-75 [facility] Comment on above: Please note:LIPASE r evised reference range effective 22. New Lipase methodology. Expected to produce lower values than the previous assay method. NEW Reference Range: 13 - 75 U/L Urea nitrogen/Creatinine [Mass ratio] 16.9 mg/mg 10-20 [facility] Laboratory - Hematology and Cell countsOrdered By: Dr. Chambers on 01-14-2023 Erythrocyte distribution width (RBC) [Entitic vol] 46.0 fL 35.1-43.9 [facility] Erythrocyte distribution width (RBC) [Ratio] 13.1 % 11.6-14.6 [facility] Immature granulocytes/100 WBC (Bld) 0.300 % 0.0-0.9 [facility] Comment on above: IG% - Immature Granu locytes (promyelocytes, myelocytes and metamyelocytes) > 1% indicates that a LEFT SHIFT is Present. MCH (RBC) [Entitic mass] 31.6 pg 27.0-32.0 [facility] Nucleated RBC/100 WBC (Bld) [Ratio] 0 % 0-5 [facility] MCHC Auto (RBC) [Mass/Vol]Or dered By: Dr. Chambers on 01-14-2023 MCHC (RBC) [Mass/Vol] 32.8 g/dL 32-36 [facility] Mucus LM Ql (Urine sed)Order ed By: Dr. Chambers on 01-14-2023 Mucus Ql (Urine sed) 0 SEEN /hpf [facility] Nitrite Test strip Ql (U)Ord ered By: Dr. Chambers on 01-14-2023 Nitrite Ql (U) Negative Negative [facility] No Panel InformationOrdered By: Dr. Chambers on 01-14-2023 Estimated Creatinine Clearance Calc 52.97 ml/min [facility] Estimated GFR (MDRD) Amer 76 mL/min >60 [facility] Comment on above: GFR Calc Estimated GFR (MDRD) Non-Af Amer 63 mL/min >60 [facility] Comment on above: Non- GFR Calc Platelets bldOrdered By: Dr. Chambers on 01-14-2023 Platelets (Bld) [#/Vol] 310 10*3/uL 150-450 [facility] Protein Test strip Ql (U)Ord ered By: Dr. Chambers on 01-14-2023 Protein Ql (U) 15 mg/dl Negative [facility] Serum or plasma albumin areli urement (mass/volume)Ordered By: Dr. Chambers on 01-14-2023 Albumin [Mass/Vol] 3.3 g/dL 3.2-5.0 [facility] Serum or plasma albumin/glob ulin mass ratioOrdered By: Dr. Chambers on 01-14-2023 Albumin/Globulin [Mass ratio] 0.8 {ratio} 0.9-2.4 [facility] Serum or plasma calcium areli urement (mass/volume)Ordered By: Dr. Chambers on 01-14-2023 Calcium [Mass/Vol] 9.6 mg/dL 8.5-10.1 [facility] Serum or plasma creatinine m easurement (mass/volume)Ordered By: Dr. Chambers on 01-14-2023 Creatinine [Mass/Vol] 0.94 mg/dL 0.55-1.02 [facility] Comment on above: The validity of the calculated GFR & GFRAA in patients over 70 years has not been determined. Clinical correlation is essential. Serum or plasma urea nitroge n measurement (mass/volume)Ordered By: Dr. Chambers on 01-14-2023 Urea nitrogen [Mass/Vol] 16 mg/dL 7-18 [facility] Squamous epithelial cells de tection in urine sediment by light microscopyOrdered By: Dr. Chambers on 01-14-2023 Epithelial cells.squamous LM Ql (Urine sed) 0 SEEN /hpf 5-10 [facility] Thin prep Papanicolaou smear with manual screeningOrdered By: Dr. Chambers on 01-14-2023 Thin prep Papanicolaou smear with manual screening 12 U/L 15-37 [facility] Thin prep Papanicolaou smear with manual screening 7 5-15 [facility] Urine blood detectionOrdered By: Dr. Chambers on 01-14-2023 RBC Ql (U) 25 /ul Negative [facility] RBC Ql (U) 0-5 SEEN /hpf 0-5 [facility] Urine clarityOrdered By: Dr. Chambers on 01-14-2023 Clarity (U) Clear Clear [facility] Urine color determinationOrd ered By: Dr. Chambers on 01-14-2023 Color (U) Yellow Yellow [facility] Urine glucose detectionOrder ed By: Dr. Chambers on 01-14-2023 Glucose Ql (U) Normal mg/dl Normal [facility] Urine leukocyte esterase det ection by dipstickOrdered By: Dr. Chambers on 01-14-2023 Leukocyte esterase Test strip Ql (U) Negative Negative [facility] Urine pHOrdered By: Dr. Graham goodrich on 01-14-2023 pH (U) 6.0 [pH] 5.0 - 8.0 [facility] Urine sediment bacteria coun t by microscopy (number/high power field)Ordered By: Dr. Chambers on 01-14-2023 Bacteria LM.HPF (Urine sed) [#/Area] 0 /[HPF] None Seen [facility] Urine specific gravity measu rementOrdered By: Dr. Chambers on 01-14-2023 Specific gravity (U) [Rel density] 1.020 1.002-1.03 0 [facility] Urobilinogen Auto test strip Ql (U)Ordered By: Dr. Chambers on 01-14-2023 Urobilinogen Ql (U) 1 mg/dl Normal [facility] Absolute lymphocyte countOrd ered By: ED PROVIDER on 01-12-2023 Lymphocytes Auto (Unsp spec) [#/Vol] 3.52 10*3/uL 0.83-4.51 [facility] Basophil percentageOrdered B y: ED PROVIDER on 01-12-2023 Basophils/100 WBC (Bld) 0.4 % 0-1 [facility] Chloride [Moles/Vol] 108 mmol/L 98-107 [facility] Eosinophils/100 WBC (Bld) 2.8 % 0-5 [facility] Glucose [Mass/Vol] 102 mg/dL 74-106 [facility] Comment on above: Fasting Glucose resu lt from 100 to 125 mg/dL suggests IMPAIRED HOMEOSTASIS per A.D.A. criteria. Neutrophils (Bld) [#/Vol] 6.5 10*3/uL 2.0-7.7 [facility] Neutrophils/100 WBC (Bld) 58.3 % 47-70 [facility] Potassium [Moles/Vol] 4.0 mmol/L 3.5-5.1 [facility] Sodium [Moles/Vol] 140 mmol/L 136-145 [facility] WBC (Bld) [#/Vol] 11.2 10*3/uL 4.4-11.0 [facility] Blood erythrocytes count (nu mber/volume)Ordered By: ED PROVIDER on 01-12-2023 RBC (Bld) [#/Vol] 4.67 10*6/uL 4.2-5.4 [facility] Blood hemoglobin measurement (mass/volume)Ordered By: ED PROVIDER on 01-12-2023 Hemoglobin (Bld) [Mass/Vol] 14.7 g/dL 12.0-15. 0 [facility] Blood lymphocytes/100 leukoc ytesOrdered By: ED PROVIDER on 01-12-2023 Lymphocytes/100 WBC (Bld) 31.3 % 19-41 [facility] Blood monocytes/100 leukocyt esOrdered By: ED PROVIDER on 01-12-2023 Monocytes/100 WBC (Bld) 6.8 % 0-10 [facility] Blood platelet mean volumeOr dered By: ED PROVIDER on 01-12-2023 Platelet mean volume (Bld) [Entitic vol] 8.8 fL 6.2-12.0 [facility] Determination of erythrocyte mean corpuscular volume (MCV)Ordered By: ED PROVIDER on 01-12-2023 MCV (RBC) [Entitic vol] 96.1 fL 81-99 [facility] Hematocrit Auto (Bld) [Volum e fraction]Ordered By: ED PROVIDER on 01-12-2023 Hematocrit (Bld) [Volume fraction] 44.9 % 37-47 [facility] INR in Blood by Coagulation assayOrdered By: ED PROVIDER on 01-12-2023 INR Coag (Bld) [Relative time] 1.1 {INR} [facility] Laboratory - Chemistry and C hemistry - challengeOrdered By: ED PROVIDER on 01-12-2023 CO2 [Moles/Vol] 25.0 mmol/L 21.0-32.0 [facility] Urea nitrogen/Creatinine [Mass ratio] 15.7 mg/mg 10-20 [facility] Laboratory - CoagulationOrde red By: ED PROVIDER on 01-12-2023 PT Coag (PPP) [Time] 14.4 s 11.7-14.9 [facility] Laboratory - Hematology and Cell countsOrdered By: ED PROVIDER on 01-12-2023 Erythrocyte distribution width (RBC) [Entitic vol] 45.2 fL 35.1-43.9 [facility] Erythrocyte distribution width (RBC) [Ratio] 13.0 % 11.6-14.6 [facility] Immature granulocytes/100 WBC (Bld) 0.400 % 0.0-0.9 [facility] Comment on above: IG% - Immature Granu locytes (promyelocytes, myelocytes and metamyelocytes) > 1% indicates that a LEFT SHIFT is Present. MCH (RBC) [Entitic mass] 31.5 pg 27.0-32.0 [facility] Nucleated RBC/100 WBC (Bld) [Ratio] 0 % 0-5 [facility] MCHC Auto (RBC) [Mass/Vol]Or dered By: ED PROVIDER on 01-12-2023 MCHC (RBC) [Mass/Vol] 32.7 g/dL 32-36 [facility] No Panel InformationOrdered By: ED PROVIDER on 01-12-2023 Estimated Creatinine Clearance Calc 55.95 ml/min [facility] Estimated GFR (MDRD) Amer 82 mL/min >60 [facility] Comment on above: GFR Calc Estimated GFR (MDRD) Non-Af Amer 67 mL/min >60 [facility] Comment on above: Non- GFR Calc Troponin I High Sensitivity 47 pg/mL 3.0-54.0 [facility] Comment on above: Please Note: New Amanda t Units and Gender Specific Reference Ranges. For more information see Policy Stat Procedure [place] High Sensitivity Troponin (TNIH) and attachments. Platelets bldOrdered By: ED PROVIDER on 01-12-2023 Platelets (Bld) [#/Vol] 329 10*3/uL 150-450 [facility] Serum or plasma calcium areli urement (mass/volume)Ordered By: ED PROVIDER on 01-12-2023 Calcium [Mass/Vol] 9.3 mg/dL 8.5-10.1 [facility] Serum or plasma creatinine m easurement (mass/volume)Ordered By: ED PROVIDER on 01-12-2023 Creatinine [Mass/Vol] 0.89 mg/dL 0.55-1.02 [facility] Comment on above: The validity of the calculated GFR & GFRAA in patients over 70 years has not been determined. Clinical correlation is essential. Serum or plasma urea nitroge n measurement (mass/volume)Ordered By: ED PROVIDER on 01-12-2023 Urea nitrogen [Mass/Vol] 14 mg/dL 7-18 [facility] Thin prep Papanicolaou smear with manual screeningOrdered By: ED PROVIDER on 01-12-2023 Thin prep Papanicolaou smear with manual screening 7 5-15 [facility] Absolute lymphocyte countOrd ered By: Danny Olivo on 01-10-2023 Lymphocytes Auto (Unsp spec) [#/Vol] 3.85 10*3/uL 0.83-4.51 [facility] Basophil percentageOrdered B y: Danny Olivo on 01-10-2023 Basophils/100 WBC (Bld) 0.4 % 0-1 [facility] Chloride [Moles/Vol] 102 mmol/L 98-107 [facility] Eosinophils/100 WBC (Bld) 3.0 % 0-5 [facility] Glucose [Mass/Vol] 99 mg/dL 74-106 [facility] Neutrophils (Bld) [#/Vol] 7.7 10*3/uL 2.0-7.7 [facility] Neutrophils/100 WBC (Bld) 59.7 % 47-70 [facility] Potassium [Moles/Vol] 3.8 mmol/L 3.5-5.1 [facility] Sodium [Moles/Vol] 139 mmol/L 136-145 [facility] WBC (Bld) [#/Vol] 12.9 10*3/uL 4.4-11.0 [facility] Blood erythrocytes count (nu mber/volume)Ordered By: Danny Olivo on 01-10-2023 RBC (Bld) [#/Vol] 4.85 10*6/uL 4.2-5.4 [facility] Blood hemoglobin measurement (mass/volume)Ordered By: Danny Olivo on 01-10-2023 Hemoglobin (Bld) [Mass/Vol] 15.3 g/dL 12.0-15. 0 [facility] Blood lymphocytes/100 leukoc ytesOrdered By: Danny Olivo on 01-10-2023 Lymphocytes/100 WBC (Bld) 29.8 % 19-41 [facility] Blood monocytes/100 leukocyt esOrdered By: Danny Olivo on 01-10-2023 Monocytes/100 WBC (Bld) 6.4 % 0-10 [facility] Blood platelet mean volumeOr dered By: Danny Olivo on 01-10-2023 Platelet mean volume (Bld) [Entitic vol] 8.6 fL 6.2-12.0 [facility] Determination of erythrocyte mean corpuscular volume (MCV)Ordered By: Danny Olivo on 01-10-2023 MCV (RBC) [Entitic vol] 96.3 fL 81-99 [facility] Hematocrit Auto (Bld) [Volum e fraction]Ordered By: Danny Olivo on 01-10-2023 Hematocrit (Bld) [Volume fraction] 46.7 % 37-47 [facility] INR in Blood by Coagulation assayOrdered By: Danny Olivo on 01-10-2023 INR Coag (Bld) [Relative time] 1.4 {INR} [facility] Laboratory - Chemistry and C hemistry - challengeOrdered By: Danny Olivo on 01-10-2023 CO2 [Moles/Vol] 30.0 mmol/L 21.0-32.0 [facility] Natriuretic peptide B (Bld) [Mass/Vol] 378.6 pg/mL 0-100 [facility] Urea nitrogen/Creatinine [Mass ratio] 21.3 mg/mg 10-20 [facility] Laboratory - CoagulationOrde red By: Danny Olivo on 01-10-2023 PT Coag (PPP) [Time] 17.3 s 11.7-14.9 [facility] Laboratory - Hematology and Cell countsOrdered By: Danny Olivo on 01-10-2023 Erythrocyte distribution width (RBC) [Entitic vol] 45.3 fL 35.1-43.9 [facility] Erythrocyte distribution width (RBC) [Ratio] 12.9 % 11.6-14.6 [facility] Immature granulocytes/100 WBC (Bld) 0.700 % 0.0-0.9 [facility] Comment on above: IG% - Immature Granu locytes (promyelocytes, myelocytes and metamyelocytes) > 1% indicates that a LEFT SHIFT is Present. MCH (RBC) [Entitic mass] 31.5 pg 27.0-32.0 [facility] Nucleated RBC/100 WBC (Bld) [Ratio] 0 % 0-5 [facility] MCHC Auto (RBC) [Mass/Vol]Or dered By: Danny Olivo on 01-10-2023 MCHC (RBC) [Mass/Vol] 32.8 g/dL 32-36 [facility] No Panel InformationOrdered By: Danny Olivo on 01-10-2023 Troponin I High Sensitivity 61 pg/mL 3.0-54.0 [facility] Comment on above: Please Note: New Amanda t Units and Gender Specific Reference Ranges. For more information see Policy Stat Procedure [place] High Sensitivity Troponin (TNIH) and attachments. Estimated Creatinine Clearance Calc 50.81 ml/min [facility] Estimated GFR (MDRD) Amer 73 mL/min >60 [facility] Comment on above: GFR Calc Estimated GFR (MDRD) Non-Af Amer 60 mL/min >60 [facility] Comment on above: Non- GFR Calc Platelets bldOrdered By: Mora Olivo on 01-10-2023 Platelets (Bld) [#/Vol] 360 10*3/uL 150-450 [facility] Serum or plasma calcium areli urement (mass/volume)Ordered By: Danny Olivo on 01-10-2023 Calcium [Mass/Vol] 9.7 mg/dL 8.5-10.1 [facility] Serum or plasma creatinine m easurement (mass/volume)Ordered By: Danny Olivo on 01-10-2023 Creatinine [Mass/Vol] 0.98 mg/dL 0.55-1.02 [facility] Comment on above: The validity of the calculated GFR & GFRAA in patients over 70 years has not been determined. Clinical correlation is essential. Serum or plasma urea nitroge n measurement (mass/volume)Ordered By: Danny Olivo on 01-10-2023 Urea nitrogen [Mass/Vol] 21 mg/dL 7-18 [facility] Thin prep Papanicolaou smear with manual screeningOrdered By: Danny Olivo on 01-10-2023 Thin prep Papanicolaou smear with manual screening 7 5-15 [facility] Absolute lymphocyte countOrd ered By: Dr. Madrid on 01-04-2023 Lymphocytes Auto (Unsp spec) [#/Vol] 1.97 10*3/uL 0.83-4.51 [facility] Basophil percentageOrdered B y: Dr. Madrid on 01-04-2023 Basophils/100 WBC (Bld) 0.2 % 0-1 [facility] Bilirubin [Mass/Vol] 0.20 mg/dL 0.20-1.00 [facility] Comment on above: For patients on eltr ombopag therapy, use of Dimension [place] TBIL is not recommended. Chloride [Moles/Vol] 105 mmol/L 98-107 [facility] Eosinophils/100 WBC (Bld) 0.0 % 0-5 [facility] Glucose [Mass/Vol] 123 mg/dL 74-106 [facility] Comment on above: Fasting Glucose resu lt from 100 to 125 mg/dL suggests IMPAIRED HOMEOSTASIS per A.D.A. criteria. Neutrophils (Bld) [#/Vol] 13.1 10*3/uL 2.0-7.7 [facility] Neutrophils/100 WBC (Bld) 80.4 % 47-70 [facility] Potassium [Moles/Vol] 4.2 mmol/L 3.5-5.1 [facility] Protein [Mass/Vol] 6.6 g/dL 6.4-8.2 [facility] Sodium [Moles/Vol] 138 mmol/L 136-145 [facility] WBC (Bld) [#/Vol] 16.2 10*3/uL 4.4-11.0 [facility] Blood erythrocytes count (nu mber/volume)Ordered By: Dr. Madrid on 01-04-2023 RBC (Bld) [#/Vol] 4.02 10*6/uL 4.2-5.4 [facility] Blood hemoglobin measurement (mass/volume)Ordered By: Dr. Madrid on 01-04-2023 Hemoglobin (Bld) [Mass/Vol] 12.6 g/dL 12.0-15. 0 [facility] Blood lymphocytes/100 leukoc ytesOrdered By: Dr. Madrid on 01-04-2023 Lymphocytes/100 WBC (Bld) 12.1 % 19-41 [facility] Blood monocytes/100 leukocyt esOrdered By: Dr. Madrid on 01-04-2023 Monocytes/100 WBC (Bld) 5.9 % 0-10 [facility] Blood platelet mean volumeOr dered By: Dr. Madrid on 01-04-2023 Platelet mean volume (Bld) [Entitic vol] 9.1 fL 6.2-12.0 [facility] Determination of erythrocyte mean corpuscular volume (MCV)Ordered By: Dr. Madrid on 01-04-2023 MCV (RBC) [Entitic vol] 95.8 fL 81-99 [facility] Hematocrit Auto (Bld) [Volum e fraction]Ordered By: Dr. Madrid on 01-04-2023 Hematocrit (Bld) [Volume fraction] 38.5 % 37-47 [facility] Laboratory - Chemistry and C hemistry - challengeOrdered By: Dr. Madrid on 01-04-2023 ALP [Catalytic activity/Vol] 205 U/L 45-117 [facility] ALT [Catalytic activity/Vol] 19 U/L 13-56 [facility] CO2 [Moles/Vol] 28.0 mmol/L 21.0-32.0 [facility] Free T4 [Mass/Vol] 0.82 ng/dL 0.76-1.46 [facility] Globulin (S) [Mass/Vol] 3.8 g/dL 2.2-4.2 [facility] Urea nitrogen/Creatinine [Mass ratio] 37.2 mg/mg 10-20 [facility] Laboratory - Hematology and Cell countsOrdered By: Dr. Madrid on 01-04-2023 Erythrocyte distribution width (RBC) [Entitic vol] 42.5 fL 35.1-43.9 [facility] Erythrocyte distribution width (RBC) [Ratio] 12.2 % 11.6-14.6 [facility] Immature granulocytes/100 WBC (Bld) 1.400 % 0.0-0.9 [facility] Comment on above: IG% - Immature Granu locytes (promyelocytes, myelocytes and metamyelocytes) > 1% indicates that a LEFT SHIFT is Present. MCH (RBC) [Entitic mass] 31.3 pg 27.0-32.0 [facility] Nucleated RBC/100 WBC (Bld) [Ratio] 0 % 0-5 [facility] MCHC Auto (RBC) [Mass/Vol]Or dered By: Dr. Madrid on 01-04-2023 MCHC (RBC) [Mass/Vol] 32.7 g/dL 32-36 [facility] No Panel InformationOrdered By: Dr. Madrid on 01-04-2023 Estimated Creatinine Clearance Calc 54.72 ml/min [facility] Estimated GFR (MDRD) Amer 79 mL/min >60 [facility] Comment on above: GFR Calc Estimated GFR (MDRD) Non-Af Amer 65 mL/min >60 [facility] Comment on above: Non- GFR Calc Thyroid Stimulating Hormone (TSH) 0.25 uIU/mL 0.358-3.74 [facility] Platelets bldOrdered By: Dr. Madrid on 01-04-2023 Platelets (Bld) [#/Vol] 277 10*3/uL 150-450 [facility] Serum or plasma albumin areli urement (mass/volume)Ordered By: Dr. Madrid on 01-04-2023 Albumin [Mass/Vol] 2.8 g/dL 3.2-5.0 [facility] Serum or plasma albumin/glob ulin mass ratioOrdered By: Dr. Madrid on 01-04-2023 Albumin/Globulin [Mass ratio] 0.7 {ratio} 0.9-2.4 [facility] Serum or plasma calcium areli urement (mass/volume)Ordered By: Dr. Madrid on 01-04-2023 Calcium [Mass/Vol] 9.1 mg/dL 8.5-10.1 [facility] Serum or plasma creatinine m easurement (mass/volume)Ordered By: Dr. Madrid on 01-04-2023 Creatinine [Mass/Vol] 0.91 mg/dL 0.55-1.02 [facility] Comment on above: The validity of the calculated GFR & GFRAA in patients over 70 years has not been determined. Clinical correlation is essential. Serum or plasma urea nitroge n measurement (mass/volume)Ordered By: Dr. Madrid on 01-04-2023 Urea nitrogen [Mass/Vol] 34 mg/dL 7-18 [facility] Thin prep Papanicolaou smear with manual screeningOrdered By: Dr. Madrid on 01-04-2023 Thin prep Papanicolaou smear with manual screening 13 U/L 15-37 [facility] Thin prep Papanicolaou smear with manual screening 5 5-15 [facility] Basophil percentageOrdered B y: Dr. Madrid on 01-03-2023 Cholesterol [Mass/Vol] 220 mg/dL <200 [facility] Comment on above: <200 mg/dL Desirable 200-240 mg/dL Borderline >240 mg/dL High Risk Triglyceride [Mass/Vol] 119 mg/dL <199 [facility] Comment on above: The drugs N-Acetylcy steine and Metamizole may falsely depress this assay.Serum Triglycerides Reference Interval Normal <150 mg/dL Borderline high 150 - 199 mg/dL High 200 - 499 mg/dL Very High > or = 500 mg/dL Laboratory - Chemistry and C hemistry - challengeOrdered By: Dr. Madrid on 01-03-2023 Cobalamin (Vitamin B12) [Mass/Vol] 216 pg/mL 211-911 [facility] No Panel InformationOrdered By: Dr. Madrid on 01-03-2023 Vitamin D 25-Hydroxy 21.6 ng/mL [facility] Comment on above: Vitamin D 25(OH) Sta tus Range Deficiency <20 ng/mL (50nmol/L) Insufficiency 20 - 30 ng/mL (50 - 75 nmol/L) Sufficiency 30 - 100 ng/mL (75 - 250 nmol/L) Toxicity >100 ng/mL (>250 nmol/L) Serum or plasma cholesterol in HDL measurement (mass/volume)Ordered By: Dr. Madrid on 01-03-2023 Cholesterol in HDL [Mass/Vol] 46 mg/dL >40 [facility] Comment on above: The drugs N-Acetylcy steine and Metamizole may falsely depress this assay. Reference Range HDL <40 mg/dL Low HDL Cholesterol HDL >or= 60 mg/dL High HDL Cholesterol Serum or plasma cholesterol in VLDL measurement (mass/volume)Ordered By: Dr. Madrid on 01-03-2023 Cholesterol in VLDL [Mass/Vol] 24 mg/dL 5-40 [facility] Serum or plasma folate measu rement (mass/volume)Ordered By: Dr. Madrid on 01-03-2023 Folate [Mass/Vol] 10.40 ng/mL 3.1-55.4 [facility] Serum or plasma low density lipoprotein (LDL) cholesterol measurement (mass/volume)Ordered By: Dr. Madrid on 01-03-2023 Cholesterol in LDL [Mass/Vol] 150 mg/dL 0-130 [facility] Whole blood hemoglobin A1c/t otal hemoglobin ratio (mass fraction)Ordered By: Dr. Madrid on 01-03-2023 HbA1c (Bld) [Mass fraction] 5.5 % 3.8-5.6 [facility] Comment on above: Normal < 5.7 % Predi abetic 5.7 - 6.4 % Diabetic >or= 6.5 % Please note range changes. Absolute lymphocyte countOrd ered By: Dr. Serrano on 01-02-2023 Lymphocytes Auto (Unsp spec) [#/Vol] 2.84 10*3/uL 0.83-4.51 [facility] Basophil percentageOrdered B y: Dr. Madrid on 01-02-2023 Lactate [Moles/Vol] 1.3 mmol/L 0.4-2.0 [facility] Basophil percentage 4.4 mg/dL 2.5-4.9 [facility] Basophil percentageOrdered B y: Dr. Serrano on 01-02-2023 Basophils/100 WBC (Bld) 1.4 % 0-1 [facility] Chloride [Moles/Vol] 109 mmol/L 98-107 [facility] Eosinophils/100 WBC (Bld) 13.7 % 0-5 [facility] Glucose [Mass/Vol] 99 mg/dL 74-106 [facility] Neutrophils (Bld) [#/Vol] 3.3 10*3/uL 2.0-7.7 [facility] Neutrophils/100 WBC (Bld) 41.8 % 47-70 [facility] Potassium [Moles/Vol] 4.3 mmol/L 3.5-5.1 [facility] Sodium [Moles/Vol] 140 mmol/L 136-145 [facility] WBC (Bld) [#/Vol] 7.9 10*3/uL 4.4-11.0 [facility] Blood erythrocytes count (nu mber/volume)Ordered By: Dr. Serrano on 01-02-2023 RBC (Bld) [#/Vol] 4.43 10*6/uL 4.2-5.4 [facility] Blood hemoglobin measurement (mass/volume)Ordered By: Dr. Serrano on 01-02-2023 Hemoglobin (Bld) [Mass/Vol] 14.2 g/dL 12.0-15. 0 [facility] Blood lymphocytes/100 leukoc ytesOrdered By: Dr. Serrano on 01-02-2023 Lymphocytes/100 WBC (Bld) 36.1 % 19-41 [facility] Blood monocytes/100 leukocyt esOrdered By: Dr. Serrano on 01-02-2023 Monocytes/100 WBC (Bld) 6.6 % 0-10 [facility] Blood platelet adequacy dete ction by light microscopyOrdered By: Dr. Madrid on 01-02-2023 Platelets LM Ql (Bld) ADEQUATE ADEQ [facility] Blood platelet mean volumeOr dered By: Dr. Serrano on 01-02-2023 Platelet mean volume (Bld) [Entitic vol] 9.7 fL 6.2-12.0 [facility] Determination of erythrocyte mean corpuscular volume (MCV)Ordered By: Dr. Serrano on 01-02-2023 MCV (RBC) [Entitic vol] 98.6 fL 81-99 [facility] Direct bilirubinOrdered By: Dr. Madrid on 01-02-2023 Bilirubin.direct [Mass/Vol] 0.06 mg/dL 0.00-0.3 0 [facility] Hematocrit Auto (Bld) [Volum e fraction]Ordered By: Dr. Serrano on 01-02-2023 Hematocrit (Bld) [Volume fraction] 43.7 % 37-47 [facility] Iron measurement (mass/mass) Ordered By: Dr. Madrid on 01-02-2023 Iron (Unsp spec) [Mass/Mass] 86 ug/dL 50-170 [facility] Laboratory - Chemistry and C hemistry - challengeOrdered By: Dr. Madrid on 01-02-2023 Magnesium [Mass/Vol] 2.2 mg/dL 1.6-2.6 [facility] Natriuretic peptide B (Bld) [Mass/Vol] 303.3 pg/mL 0-100 [facility] Laboratory - Chemistry and C hemistry - challengeOrdered By: Dr. Serrano on 01-02-2023 CO2 [Moles/Vol] 31.0 mmol/L 21.0-32.0 [facility] Urea nitrogen/Creatinine [Mass ratio] 31.0 mg/mg 10-20 [facility] Laboratory - Hematology and Cell countsOrdered By: Dr. Madrid on 01-02-2023 Anisocytosis Ql (Bld) RARE [facility] Laboratory - Hematology and Cell countsOrdered By: Dr. Serrano on 01-02-2023 Erythrocyte distribution width (RBC) [Entitic vol] 45.0 fL 35.1-43.9 [facility] Erythrocyte distribution width (RBC) [Ratio] 12.3 % 11.6-14.6 [facility] Immature granulocytes/100 WBC (Bld) 0.400 % 0.0-0.9 [facility] Comment on above: IG% - Immature Granu locytes (promyelocytes, myelocytes and metamyelocytes) > 1% indicates that a LEFT SHIFT is Present. MCH (RBC) [Entitic mass] 32.1 pg 27.0-32.0 [facility] Nucleated RBC/100 WBC (Bld) [Ratio] 0 % 0-5 [facility] Laboratory - Microbiology an d Antimicrobial susceptibilityOrdered By: Dr. Madrid on 01-02-2023 Respiratory pathogens DNA and RNA 12b panel KAYDEN+probe (Unsp spec) [facility] MCHC Auto (RBC) [Mass/Vol]Or dered By: Dr. Serrano on 01-02-2023 MCHC (RBC) [Mass/Vol] 32.5 g/dL 32-36 [facility] Macrocytes detectionOrdered By: Dr. Madrid on 01-02-2023 Macrocytes Ql (Bld) [facility] No Panel InformationOrdered By: Dr. Madrid on 01-02-2023 Troponin I High Sensitivity 402 pg/mL 3.0-54.0 [facility] Comment on above: Critical Result(s) C alled at: 17:07:51 01/02/2023 by: MARKY MCGINNIS to PASCALE MÁRQUEZ. Results read back by same. Please Note: New Test Units and Gender Specific Reference Ranges. For more information see Policy Stat Procedure [place] High Sensitivity Troponin (TNIH) and attachments. Atypical Lymphocytes 1+ % [facility] Reactive Lymphocytes 1+ [facility] Total Iron Binding Capacity 260 ug/dL 250-450 [facility] No Panel InformationOrdered By: Dr. Serrano on 01-02-2023 Estimated Creatinine Clearance Calc 61.67 ml/min [facility] Estimated GFR (MDRD) Amer 87 mL/min >60 [facility] Comment on above: GFR Calc Estimated GFR (MDRD) Non-Af Amer 72 mL/min >60 [facility] Comment on above: Non- GFR Calc Troponin I High Sensitivity 613 pg/mL 3.0-54.0 [facility] Comment on above: Critical Result(s) C alled at: 10:59:25 01/02/2023 by: Kaye Nevarez. Results read back by same. Please Note: New Test Units and Gender Specific Reference Ranges. For more information see Policy Stat Procedure [place] High Sensitivity Troponin (TNIH) and attachments. Platelets bldOrdered By: Dr. Serrano on 01-02-2023 Platelets (Bld) [#/Vol] 311 10*3/uL 150-450 [facility] RBC morphologyOrdered By: Dr Isabela Madrid on 01-02-2023 RBC morphology finding Nom (Bld) N CHROM NORMAL NORM C&C [facility] Serum or plasma calcium areli urement (mass/volume)Ordered By: Dr. Serrano on 01-02-2023 Calcium [Mass/Vol] 9.6 mg/dL 8.5-10.1 [facility] Serum or plasma creatinine m easurement (mass/volume)Ordered By: Dr. Serrano on 01-02-2023 Creatinine [Mass/Vol] 0.84 mg/dL 0.55-1.02 [facility] Comment on above: The validity of the calculated GFR & GFRAA in patients over 70 years has not been determined. Clinical correlation is essential. Serum or plasma ferritin gloria surement (mass/volume)Ordered By: Dr. Madrid on 01-02-2023 Ferritin [Mass/Vol] 72 ng/mL 8-252 [facility] Serum or plasma urea nitroge n measurement (mass/volume)Ordered By: Dr. Serrano on 01-02-2023 Urea nitrogen [Mass/Vol] 26 mg/dL 7-18 [facility] Thin prep Papanicolaou smear with manual screeningOrdered By: Dr. Serrano on 01-02-2023 Thin prep Papanicolaou smear with manual screening 0 5-15 [facility] Toxic leukocyte granulation detectionOrdered By: Dr. Madrid on 01-02-2023 Toxic granules LM Ql (Bld) RARE [facility] Culture, urineOrdered By: Dr Isablea Serrano on 10-02-2022 Bacteria identified Cx Nom (U) Mixed Gram Pos & Gram Neg Org [facility] Absolute lymphocyte countOrd ered By: Dr. Serrano on 09-30-2022 Lymphocytes Auto (Unsp spec) [#/Vol] 3.35 10*3/uL 0.83-4.51 [facility] Basophil percentageOrdered B y: Dr. Serrano on 09-30-2022 Basophil percentage 0 SEEN /hpf 0-5 [facility] Basophil percentage 95 mg/dL 74-106 [facility] Basophil percentage 140 mmol/L 136-145 [facility] Basophil percentage 3.8 mmol/L 3.5-5.1 [facility] Basophil percentage 107 mmol/L 98-107 [facility] Basophils (Bld) [#/Vol] 7.7 10*3/uL 4.4-11.0 [facility] Basophils (Bld) [#/Vol] 3.5 10*3/uL 2.0-7.7 [facility] Basophils/100 WBC (Bld) 44.9 % 47-70 [facility] Basophils/100 WBC (Bld) 2.1 % 0-5 [facility] Basophils/100 WBC (Bld) 0.9 % 0-1 [facility] Chloride [Moles/Vol] 107 mmol/L 98-107 [facility] Eosinophils/100 WBC (Bld) 2.1 % 0-5 [facility] Glucose [Mass/Vol] 95 mg/dL 74-106 [facility] Neutrophils (Bld) [#/Vol] 3.5 10*3/uL 2.0-7.7 [facility] Neutrophils/100 WBC (Bld) 44.9 % 47-70 [facility] Potassium [Moles/Vol] 3.8 mmol/L 3.5-5.1 [facility] Sodium [Moles/Vol] 140 mmol/L 136-145 [facility] WBC (Bld) [#/Vol] 7.7 10*3/uL 4.4-11.0 [facility] Bilirubin Test strip Ql (U)O rdered By: Dr. Serrano on 09-30-2022 Bilirubin Ql (U) Negative Negative [facility] Blood erythrocytes count (nu mber/volume)Ordered By: Dr. Serrano on 09-30-2022 RBC (Bld) [#/Vol] 4.87 10*6/uL 4.2-5.4 [facility] Blood hemoglobin measurement (mass/volume)Ordered By: Dr. Serrano on 09-30-2022 Hemoglobin (Bld) [Mass/Vol] 15.4 g/dL 12.0-15. 0 [facility] Blood lymphocytes/100 leukoc ytesOrdered By: Dr. Serrano on 09-30-2022 Lymphocytes/100 WBC (Bld) 43.3 % 19-41 [facility] Blood monocytes/100 leukocyt esOrdered By: Dr. Serrano on 09-30-2022 Monocytes/100 WBC (Bld) 8.4 % 0-10 [facility] Blood platelet mean volumeOr dered By: Dr. Serrano on 09-30-2022 Platelet mean volume (Bld) [Entitic vol] 9.3 fL 6.2-12.0 [facility] Determination of erythrocyte mean corpuscular volume (MCV)Ordered By: Dr. Serrano on 09-30-2022 MCV (RBC) [Entitic vol] 94.9 fL 81-99 [facility] Hematocrit Auto (Bld) [Volum e fraction]Ordered By: Dr. Serrano on 09-30-2022 Hematocrit (Bld) [Volume fraction] 46.2 % 37-47 [facility] Ketones Test strip Ql (U)Ord ered By: Dr. Serrano on 09-30-2022 Ketones Ql (U) 5 mg/dl Negative [facility] Laboratory - Chemistry and C hemistry - challengeOrdered By: Dr. Serrano on 09-30-2022 CO2 [Moles/Vol] 28.0 mmol/L 21.0-32.0 [facility] Urea nitrogen/Creatinine [Mass ratio] 17.6 mg/mg 10-20 [facility] Laboratory - Hematology and Cell countsOrdered By: Dr. Serrano on 09-30-2022 Erythrocyte distribution width (RBC) [Entitic vol] 45.0 fL 35.1-43.9 [facility] Erythrocyte distribution width (RBC) [Ratio] 12.9 % 11.6-14.6 [facility] Immature granulocytes/100 WBC (Bld) 0.400 % 0.0-0.9 [facility] Comment on above: IG% - Immature Granu locytes (promyelocytes, myelocytes and metamyelocytes) > 1% indicates that a LEFT SHIFT is Present. MCH (RBC) [Entitic mass] 31.6 pg 27.0-32.0 [facility] Nucleated RBC/100 WBC (Bld) [Ratio] 0 % 0-5 [facility] MCHC Auto (RBC) [Mass/Vol]Or dered By: Dr. Serrano on 09-30-2022 MCHC (RBC) [Mass/Vol] 33.3 g/dL 32-36 [facility] Mucus LM Ql (Urine sed)Order ed By: Dr. Serrano on 09-30-2022 Mucus Ql (Urine sed) 0 SEEN /hpf [facility] Nitrite Test strip Ql (U)Ord ered By: Dr. Serrano on 09-30-2022 Nitrite Ql (U) Positive Negative [facility] No Panel InformationOrdered By: Dr. Serrano on 09-30-2022 Estimated Creatinine Clearance Calc 48.62 ml/min [facility] Estimated GFR (MDRD) Amer 65 mL/min >60 [facility] Comment on above: GFR Calc Estimated GFR (MDRD) Non-Af Amer 54 mL/min >60 [facility] Comment on above: Non- GFR Calc 31.6 pg 27.0-32.0 [facility] 12.9 % 11.6-14.6 [facility] 45.0 fl 35.1-43.9 [facility] 0.400 % 0.0-0.9 [facility] 0 % 0-5 [facility] 54 mL/min >60 [facility] 65 mL/min >60 [facility] 48.62 ml/min [facility] 17.6 RATIO 10-20 [facility] 28.0 mmol/L 21.0-32.0 [facility] Platelets bldOrdered By: Dr. Serrano on 09-30-2022 Platelets (Bld) [#/Vol] 299 10*3/uL 150-450 [facility] Protein Test strip Ql (U)Ord ered By: Dr. Serrano on 09-30-2022 Protein Ql (U) Negative Negative [facility] Serum or plasma calcium areli urement (mass/volume)Ordered By: Dr. Serrano on 09-30-2022 Calcium [Mass/Vol] 10.2 mg/dL 8.5-10.1 [facility] Serum or plasma creatinine m easurement (mass/volume)Ordered By: Dr. Serrano on 09-30-2022 Creatinine [Mass/Vol] 1.08 mg/dL 0.55-1.02 [facility] Comment on above: The validity of the calculated GFR & GFRAA in patients over 70 years has not been determined. Clinical correlation is essential. Serum or plasma urea nitroge n measurement (mass/volume)Ordered By: Dr. Serrano on 09-30-2022 Urea nitrogen [Mass/Vol] 19 mg/dL 7-18 [facility] Squamous epithelial cells de tection in urine sediment by light microscopyOrdered By: Dr. Serrano on 09-30-2022 Epithelial cells.squamous LM Ql (Urine sed) 5-10 SEEN /hpf 5-10 [facility] Thin prep Papanicolaou smear with manual screeningOrdered By: Dr. Serrano on 09-30-2022 Thin prep Papanicolaou smear with manual screening 5 5-15 [facility] US ABD AORTAon 09-30-2022 Radiology Result ACTIONABLE Abnormal [facility] Urine blood detectionOrdered By: Dr. Serrano on 09-30-2022 RBC Ql (U) 50 /ul Negative [facility] RBC Ql (U) 0 SEEN /hpf 0-5 [facility] Urine clarityOrdered By: Dr. Serrano on 09-30-2022 Clarity (U) Clear Clear [facility] Urine color determinationOrd ered By: Dr. Serrano on 09-30-2022 Color (U) Yellow Yellow [facility] Urine glucose detectionOrder ed By: Dr. Serrano on 09-30-2022 Glucose Ql (U) Normal mg/dl Normal [facility] Urine leukocyte esterase det ection by dipstickOrdered By: Dr. Serrano on 09-30-2022 Leukocyte esterase Test strip Ql (U) 25 /ul Negative [facility] Urine pHOrdered By: Dr. Grecia polk on 09-30-2022 pH (U) 6.5 [pH] 5.0 - 8.0 [facility] Urine sediment bacteria coun t by microscopy (number/high power field)Ordered By: Dr. Serrano on 09-30-2022 Bacteria LM.HPF (Urine sed) [#/Area] 0 /[HPF] None Seen [facility] Urine specific gravity measu rementOrdered By: Dr. Serrano on 09-30-2022 Specific gravity (U) [Rel density] 1.020 1.002-1.03 0 [facility] Urobilinogen Auto test strip Ql (U)Ordered By: Dr. Serrano on 09-30-2022 Urobilinogen Ql (U) Normal mg/dl Normal [facility] CBC panel Auto (Bld)on 09-23 Erythrocyte distribution width (RBC) [Ratio] 13.2 % 11.5 - 15.0 % [facility] Hematocrit (Bld) [Volume fraction] 42.4 % 36.0 - 46.0 % [facility] Hemoglobin (Bld) [Mass/Vol] 13.8 g/dL 11.5 - 15.5 g/dL [facility] MCH (RBC) [Entitic mass] 32.0 pg 26. 0 - 34.[address] [facility] MCHC (RBC) [Mass/Vol] 32.5 g/dL 30.5 - 36.0 g/dL [facility] MCV (RBC) [Entitic vol] 98.4 fL 80.0 - 100.[address] [facility] Nucleated RBC (Bld) [#/Vol] <0.01 k/ uL [facility] Platelet mean volume (Bld) [Entitic vol] 9.2 fL 9.0 - 12.[address] [facility] Platelets (Bld) [#/Vol] 311 10*3/uL 150 - 400 k/uL [facility] RBC (Bld) [#/Vol] 4.31 10*6/uL 3.90 - 5.20 m/uL [facility] WBC (Bld) [#/Vol] 7.12 10*3/uL 3.70 - 11.00 k/uL [facility] HbA1c (Bld)on 09-23-2022 Average glucose Estimated from glycated hemoglobin (Bld) [Mass/Vol] 103 mg/dL [facility] HbA1c (Bld) [Mass fraction] 5.2 % 4.3 - 5.6 % [facility] UA DIP, URINE (POC)on 2022 BILIRUBIN UA (POCT) Negative Negative [facility] CLARITY UA (POCT) Clear [facility] COLOR UA (POCT) Dark yellow [facility] GLUCOSE UA (POCT) Negative Negative mg/dL [facility] HEMOGLOBIN/BLOOD UA (POCT) Negative Negative [facility] KETONE UA (POCT) Negative Negative mg/dL [facility] LEUKOCYTES UA (POCT) Negative Negative [facility] NITRITE UA (POCT) Negative Negative [facility] PH UA (POCT) 6.0 4.5 - 8.0 [facility] Protein Ql (U) Negative Negative mg/dL [facility] SPECIFIC GRAVITY UA (POCT) 1.025 1 .005 - 1.030 [facility] UROBILINOGEN UA (POCT) 0.2 E.U./dL Ashley l E.U./dL [facility] Laboratory - Chemistry and C hemistry - challengeOrdered By: Dr. Funk on 09-17-2022 Natriuretic peptide B (Bld) [Mass/Vol] 91.9 pg/mL 0-100 [facility] No Panel InformationOrdered By: Dr. Funk on 09-17-2022 91.9 pg/mL 0-100 [facility] Absolute lymphocyte countOrd ered By: ED PROVIDER on 09-02-2022 Lymphocytes Auto (Unsp spec) [#/Vol] 2.88 10*3/uL 0.83-4.51 [facility] Basophil percentageOrdered B y: ED PROVIDER on 09-02-2022 Basophil percentage 0-5 SEEN /hpf 0-5 [facility] Basophil percentage 98 mg/dL 74-106 [facility] Basophil percentage 7.1 g/dL 6.4-8.2 [facility] Basophil percentage 0.20 mg/dL 0.20-1.00 [facility] Basophil percentage 143 mmol/L 136-145 [facility] Basophil percentage 3.8 mmol/L 3.5-5.1 [facility] Basophil percentage 112 mmol/L 98-107 [facility] Basophils (Bld) [#/Vol] 8.8 10*3/uL 4.4-11.0 [facility] Basophils (Bld) [#/Vol] 4.9 10*3/uL 2.0-7.7 [facility] Basophils/100 WBC (Bld) 0.8 % 0-1 [facility] Basophils/100 WBC (Bld) 55.2 % 47-70 [facility] Basophils/100 WBC (Bld) 3.0 % 0-5 [facility] Basophil percentageOrdered B y: Dr. Williamson on 09-02-2022 Basophil percentage 0.8 mmol/L 0.4-2.0 [facility] Basophil percentageon 2021 Lactate [Moles/Vol] 0.8 mmol/L 0.4-2.0 [facility] Work Phone: [phone] Bilirubin [Mass/Vol] 0.20 mg/dL 0.20-1.00 [facility] Work Phone: Comment on above: For patients on eltr ombopag therapy, use of Dimension [place] TBIL is not recommended. Chloride [Moles/Vol] 112 mmol/L 98-107 [facility] Work Phone: Eosinophils/100 WBC (Bld) 3.0 % 0-5 [facility] Work Phone: Glucose [Mass/Vol] 98 mg/dL 74-106 [facility] Work Phone: Neutrophils (Bld) [#/Vol] 4.9 10*3/uL 2.0-7.7 [facility] Work Phone: Neutrophils/100 WBC (Bld) 55.2 % 47-70 [facility] Work Phone: Potassium [Moles/Vol] 3.8 mmol/L 3.5-5.1 [facility] Work Phone: Protein [Mass/Vol] 7.1 g/dL 6.4-8.2 [facility] Work Phone: Sodium [Moles/Vol] 143 mmol/L 136-145 [facility] Work Phone: WBC (Bld) [#/Vol] 8.8 10*3/uL 4.4-11.0 [facility] Work Phone: Bilirubin Test strip Ql (U)O rdered By: ED PROVIDER on 09-02-2022 Bilirubin Ql (U) Negative Negative [facility] Blood erythrocytes count (nu mber/volume)Ordered By: ED PROVIDER on 09-02-2022 RBC (Bld) [#/Vol] 4.30 10*6/uL 4.2-5.4 [facility] Blood hemoglobin measurement (mass/volume)Ordered By: ED PROVIDER on 09-02-2022 Hemoglobin (Bld) [Mass/Vol] 13.4 g/dL 12.0-15. 0 [facility] Blood lymphocytes/100 leukoc ytesOrdered By: ED PROVIDER on 09-02-2022 Lymphocytes/100 WBC (Bld) 32.7 % 19-41 [facility] Blood monocytes/100 leukocyt esOrdered By: ED PROVIDER on 09-02-2022 Monocytes/100 WBC (Bld) 7.8 % 0-10 [facility] Blood platelet mean volumeOr dered By: ED PROVIDER on 09-02-2022 Platelet mean volume (Bld) [Entitic vol] 9.2 fL 6.2-12.0 [facility] Determination of erythrocyte mean corpuscular volume (MCV)Ordered By: ED PROVIDER on 09-02-2022 MCV (RBC) [Entitic vol] 96.3 fL 81-99 [facility] Hematocrit Auto (Bld) [Volum e fraction]Ordered By: ED PROVIDER on 09-02-2022 Hematocrit (Bld) [Volume fraction] 41.4 % 37-47 [facility] Ketones Test strip Ql (U)Ord ered By: ED PROVIDER on 09-02-2022 Ketones Ql (U) Negative Negative [facility] Laboratory - Chemistry and C hemistry - challengeon 09-02-2022 ALP [Catalytic activity/Vol] 124 U/L 45-117 [facility] Work Phone: ALT [Catalytic activity/Vol] 13 U/L 13-56 [facility] Work Phone: CO2 [Moles/Vol] 28.0 mmol/L 21.0-32.0 [facility] Work Phone: Globulin (S) [Mass/Vol] 3.5 g/dL 2.2-4.2 [facility] Work Phone: Urea nitrogen/Creatinine [Mass ratio] 18.7 mg/mg 10-20 [facility] Work Phone: Laboratory - Hematology and Cell countson 09-02-2022 Erythrocyte distribution width (RBC) [Entitic vol] 46.5 fL 35.1-43.9 [facility] Work Phone: Erythrocyte distribution width (RBC) [Ratio] 13.2 % 11.6-14.6 [facility] Work Phone: Immature granulocytes/100 WBC (Bld) 0.500 % 0.0-0.9 [facility] Work Phone: Comment on above: IG% - Immature Granu locytes (promyelocytes, myelocytes and metamyelocytes) > 1% indicates that a LEFT SHIFT is Present. MCH (RBC) [Entitic mass] 31.2 pg 27.0-32.0 [facility] Work Phone: Nucleated RBC/100 WBC (Bld) [Ratio] 0 % 0-5 [facility] Work Phone: MCHC Auto (RBC) [Mass/Vol]Or dered By: ED PROVIDER on 09-02-2022 MCHC (RBC) [Mass/Vol] 32.4 g/dL 32-36 [facility] Mucus LM Ql (Urine sed)Order ed By: ED PROVIDER on 09-02-2022 Mucus Ql (Urine sed) 0 SEEN /hpf [facility] Nitrite Test strip Ql (U)Ord ered By: ED PROVIDER on 09-02-2022 Nitrite Ql (U) Negative Negative [facility] No Panel Informationon 09-02 Estimated Creatinine Clearance Calc 70.01 ml/min [facility] Work Phone: Estimated GFR (MDRD) Amer 100 mL/min >60 [facility] Work Phone: Comment on above: GFR Calc Estimated GFR (MDRD) Non-Af Amer 83 mL/min >60 [facility] Work Phone: Comment on above: Non- GFR Calc No Panel InformationOrdered By: ED PROVIDER on 09-02-2022 31.2 pg 27.0-32.0 [facility] 13.2 % 11.6-14.6 [facility] 46.5 fl 35.1-43.9 [facility] 0.500 % 0.0-0.9 [facility] 0 % 0-5 [facility] 83 mL/min >60 [facility] 100 mL/min >60 [facility] 70.01 ml/min [facility] 18.7 RATIO 10-20 [facility] 3.5 g/dL 2.2-4.2 [facility] 124 U/L 45-117 [facility] 13 U/L 13-56 [facility] 28.0 mmol/L 21.0-32.0 [facility] Platelets bldOrdered By: ED PROVIDER on 09-02-2022 Platelets (Bld) [#/Vol] 259 10*3/uL 150-450 [facility] Protein Test strip Ql (U)Ord ered By: ED PROVIDER on 09-02-2022 Protein Ql (U) Negative Negative [facility] Serum or plasma albumin areli urement (mass/volume)Ordered By: ED PROVIDER on 09-02-2022 Albumin [Mass/Vol] 3.6 g/dL 3.2-5.0 [facility] Serum or plasma albumin/glob ulin mass ratioOrdered By: ED PROVIDER on 09-02-2022 Albumin/Globulin [Mass ratio] 1.0 {ratio} 0.9-2.4 [facility] Serum or plasma calcium areli urement (mass/volume)Ordered By: ED PROVIDER on 09-02-2022 Calcium [Mass/Vol] 9.2 mg/dL 8.5-10.1 [facility] Serum or plasma creatinine m easurement (mass/volume)Ordered By: ED PROVIDER on 09-02-2022 Creatinine [Mass/Vol] 0.75 mg/dL 0.55-1.02 [facility] Comment on above: The validity of the calculated GFR & GFRAA in patients over 70 years has not been determined. Clinical correlation is essential. Serum or plasma urea nitroge n measurement (mass/volume)Ordered By: ED PROVIDER on 09-02-2022 Urea nitrogen [Mass/Vol] 14 mg/dL 7-18 [facility] Squamous epithelial cells de tection in urine sediment by light microscopyOrdered By: ED PROVIDER on 09-02-2022 Epithelial cells.squamous LM Ql (Urine sed) 0-5 SEEN /hpf 5-10 [facility] Thin prep Papanicolaou smear with manual screeningOrdered By: ED PROVIDER on 09-02-2022 Thin prep Papanicolaou smear with manual screening 13 U/L 15-37 [facility] Thin prep Papanicolaou smear with manual screening 3 5-15 [facility] Urine blood detectionOrdered By: ED PROVIDER on 09-02-2022 RBC Ql (U) 25 /ul Negative [facility] RBC Ql (U) 0-5 SEEN /hpf 0-5 [facility] Urine clarityOrdered By: ED PROVIDER on 09-02-2022 Clarity (U) Sl. Cloudy Clear [facility] Urine color determinationOrd ered By: ED PROVIDER on 09-02-2022 Color (U) Yellow Yellow [facility] Urine glucose detectionOrder ed By: ED PROVIDER on 09-02-2022 Glucose Ql (U) Normal mg/dl Normal [facility] Urine leukocyte esterase det ection by dipstickOrdered By: ED PROVIDER on 09-02-2022 Leukocyte esterase Test strip Ql (U) 25 /ul Negative [facility] Urine pHOrdered By: ED PROVI ANDREAS on 09-02-2022 pH (U) 5.0 [pH] 5.0 - 8.0 [facility] Urine sediment bacteria coun t by microscopy (number/high power field)Ordered By: ED PROVIDER on 09-02-2022 Bacteria LM.HPF (Urine sed) [#/Area] 0 /[HPF] None Seen [facility] Urine specific gravity measu rementOrdered By: ED PROVIDER on 09-02-2022 Specific gravity (U) [Rel density] 1.020 1.002-1.03 0 [facility] Urobilinogen Auto test strip Ql (U)Ordered By: ED PROVIDER on 09-02-2022 Urobilinogen Ql (U) Normal mg/dl Normal [facility] Absolute lymphocyte countOrd ered By: Dr. Melendez on 08-30-2022 Lymphocytes Auto (Unsp spec) [#/Vol] 2.48 10*3/uL 0.83-4.51 [facility] Basophil percentageOrdered B y: Dr. Melendez on 08-30-2022 Basophil percentage 94 mg/dL 74-106 [facility] Basophil percentage 7.4 g/dL 6.4-8.2 [facility] Basophil percentage 0.30 mg/dL 0.20-1.00 [facility] Basophil percentage 140 mmol/L 136-145 [facility] Basophil percentage 3.7 mmol/L 3.5-5.1 [facility] Basophil percentage 106 mmol/L 98-107 [facility] Basophils (Bld) [#/Vol] 7.3 10*3/uL 4.4-11.0 [facility] Basophils (Bld) [#/Vol] 4.0 10*3/uL 2.0-7.7 [facility] Basophils/100 WBC (Bld) 1.1 % 0-1 [facility] Basophils/100 WBC (Bld) 53.8 % 47-70 [facility] Basophils/100 WBC (Bld) 3.0 % 0-5 [facility] Basophil percentageon 2021 Bilirubin [Mass/Vol] 0.30 mg/dL 0.20-1.00 [facility] Work Phone: Comment on above: For patients on eltr ombopag therapy, use of Dimension [place] TBIL is not recommended. Chloride [Moles/Vol] 106 mmol/L 98-107 [facility] Work Phone: [phone] Eosinophils/100 WBC (Bld) 3.0 % 0-5 [facility] Work Phone: Glucose [Mass/Vol] 94 mg/dL 74-106 [facility] Work Phone: [phone] Neutrophils (Bld) [#/Vol] 4.0 10*3/uL 2.0-7.7 [facility] Work Phone: [phone] Neutrophils/100 WBC (Bld) 53.8 % 47-70 [facility] Work Phone: Potassium [Moles/Vol] 3.7 mmol/L 3.5-5.1 [facility] Work Phone: [phone] Protein [Mass/Vol] 7.4 g/dL 6.4-8.2 [facility] Work Phone: [phone] Sodium [Moles/Vol] 140 mmol/L 136-145 [facility] Work Phone: WBC (Bld) [#/Vol] 7.3 10*3/uL 4.4-11.0 [facility] Work Phone: Blood erythrocytes count (nu mber/volume)Ordered By: Dr. Melendez on 08-30-2022 RBC (Bld) [#/Vol] 4.41 10*6/uL 4.2-5.4 [facility] Blood hemoglobin measurement (mass/volume)Ordered By: Dr. Melendez on 08-30-2022 Hemoglobin (Bld) [Mass/Vol] 14.1 g/dL 12.0-15. 0 [facility] Blood lymphocytes/100 leukoc ytesOrdered By: Dr. Melendez on 08-30-2022 Lymphocytes/100 WBC (Bld) 33.8 % 19-41 [facility] Blood monocytes/100 leukocyt esOrdered By: Dr. Melendez on 08-30-2022 Monocytes/100 WBC (Bld) 7.9 % 0-10 [facility] Blood platelet mean volumeOr dered By: Dr. Melendez on 08-30-2022 Platelet mean volume (Bld) [Entitic vol] 9.6 fL 6.2-12.0 [facility] Determination of erythrocyte mean corpuscular volume (MCV)Ordered By: Dr. Melendez on 08-30-2022 MCV (RBC) [Entitic vol] 96.1 fL 81-99 [facility] Hematocrit Auto (Bld) [Volum e fraction]Ordered By: Dr. Melendez on 08-30-2022 Hematocrit (Bld) [Volume fraction] 42.4 % 37-47 [facility] INR in Blood by Coagulation assayOrdered By: Dr. Melendez on 08-30-2022 INR Coag (Bld) [Relative time] 1.1 {INR} [facility] Laboratory - Chemistry and C hemistry - challengeon 08-30-2022 ALP [Catalytic activity/Vol] 134 U/L 45-117 [facility] Work Phone: ALT [Catalytic activity/Vol] 17 U/L 13-56 [facility] Work Phone: CO2 [Moles/Vol] 28.0 mmol/L 21.0-32.0 [facility] Work Phone: Globulin (S) [Mass/Vol] 3.8 g/dL 2.2-4.2 [facility] Work Phone: Lipase [Catalytic activity/Vol] 161 U/L 73-393 [facility] Work Phone: Urea nitrogen/Creatinine [Mass ratio] 19.1 mg/mg 10-20 [facility] Work Phone: Laboratory - Coagulationon 1 10-31-2021 aPTT Coag (Bld) [Time] 27.6 s 24.1-36.2 [facility] Work Phone: PT Coag (PPP) [Time] 13.4 s 11.7-14.9 [facility] Work Phone: Laboratory - Hematology and Cell countson 08-30-2022 Erythrocyte distribution width (RBC) [Entitic vol] 47.2 fL 35.1-43.9 [facility] Work Phone: Erythrocyte distribution width (RBC) [Ratio] 13.4 % 11.6-14.6 [facility] Work Phone: Immature granulocytes/100 WBC (Bld) 0.400 % 0.0-0.9 [facility] Work Phone: Comment on above: IG% - Immature Granu locytes (promyelocytes, myelocytes and metamyelocytes) > 1% indicates that a LEFT SHIFT is Present. MCH (RBC) [Entitic mass] 32.0 pg 27.0-32.0 [facility] Work Phone: Nucleated RBC/100 WBC (Bld) [Ratio] 0 % 0-5 [facility] Work Phone: MCHC Auto (RBC) [Mass/Vol]Or dered By: Dr. Melendez on 08-30-2022 MCHC (RBC) [Mass/Vol] 33.3 g/dL 32-36 [facility] No Panel Informationon 08-30 D-Dimer Quantitative (PE/DVT) 0.99 FEU/ug/m 0.27-0.49 [facility] Work Phone: Comment on above: RESULTS CALLED TO ZULEIMA POWELL RN 08/30/22 [id number] Laura Hernandes.REPORT READ BACK BY SAME.D-Dimer ELEVATED (>0.49): Additional studies and clinicalassessments are indicated to conclude diagnosis of:Deep Vein Thrombosis (DVT) or Pulmonary Embolism (PE) Estimated Creatinine Clearance Calc 55.86 ml/min [facility] Work Phone: Estimated GFR (MDRD) Amer 77 mL/min >60 [facility] Work Phone: Comment on above: GFR Calc Estimated GFR (MDRD) Non-Af Amer 63 mL/min >60 [facility] Work Phone: Comment on above: Non- GFR Calc Troponin I High Sensitivity 21 pg/mL 3.0-54.0 [facility] Work Phone: Comment on above: Please Note: New Amanda t Units and Gender Specific Reference Ranges. For more information see Policy Stat Procedure [place] High Sensitivity Troponin (TNIH) and attachments. No Panel InformationOrdered By: Dr. Melendez on 08-30-2022 32.0 pg 27.0-32.0 [facility] 13.4 % 11.6-14.6 [facility] 47.2 fl 35.1-43.9 [facility] 0.400 % 0.0-0.9 [facility] 0 % 0-5 [facility] 13.4 SECONDS 11.7-14.9 [facility] 27.6 Seconds 24.1-36.2 [facility] 0.99 FEU/ug/m 0.27-0.49 [facility] 63 mL/min >60 [facility] 77 mL/min >60 [facility] 55.86 ml/min [facility] 19.1 RATIO 10-20 [facility] 3.8 g/dL 2.2-4.2 [facility] 161 U/L 73-393 [facility] 21 pg/mL 3.0-54.0 [facility] 134 U/L 45-117 [facility] 17 U/L 13-56 [facility] 28.0 mmol/L 21.0-32.0 [facility] Platelets bldOrdered By: Dr. Melendez on 08-30-2022 Platelets (Bld) [#/Vol] 290 10*3/uL 150-450 [facility] Serum or plasma albumin areli urement (mass/volume)Ordered By: Dr. Melendez on 08-30-2022 Albumin [Mass/Vol] 3.6 g/dL 3.2-5.0 [facility] Serum or plasma albumin/glob ulin mass ratioOrdered By: Dr. Melendez on 08-30-2022 Albumin/Globulin [Mass ratio] 0.9 {ratio} 0.9-2.4 [facility] Serum or plasma calcium areli urement (mass/volume)Ordered By: Dr. Melendez on 08-30-2022 Calcium [Mass/Vol] 9.4 mg/dL 8.5-10.1 [facility] Serum or plasma creatinine m easurement (mass/volume)Ordered By: Dr. Melendez on 08-30-2022 Creatinine [Mass/Vol] 0.94 mg/dL 0.55-1.02 [facility] Comment on above: The validity of the calculated GFR & GFRAA in patients over 70 years has not been determined. Clinical correlation is essential. Serum or plasma urea nitroge n measurement (mass/volume)Ordered By: Dr. Melendez on 08-30-2022 Urea nitrogen [Mass/Vol] 18 mg/dL 7-18 [facility] Thin prep Papanicolaou smear with manual screeningOrdered By: Dr. Melendez on 08-30-2022 Thin prep Papanicolaou smear with manual screening 13 U/L 15-37 [facility] Thin prep Papanicolaou smear with manual screening 6 5-15 [facility] Absolute lymphocyte countOrd ered By: Dr. Chambers on 08-23-2022 Lymphocytes Auto (Unsp spec) [#/Vol] 1.72 10*3/uL 0.83-4.51 [facility] Basophil percentageOrdered B y: Dr. Chambers on 08-23-2022 Basophil percentage 0 SEEN /hpf 0-5 [facility] Basophil percentage 102 mg/dL 74-106 [facility] Basophil percentage 140 mmol/L 136-145 [facility] Basophil percentage 3.9 mmol/L 3.5-5.1 [facility] Basophil percentage 106 mmol/L 98-107 [facility] Basophils (Bld) [#/Vol] 5.9 10*3/uL 4.4-11.0 [facility] Basophils (Bld) [#/Vol] 3.6 10*3/uL 2.0-7.7 [facility] Basophils/100 WBC (Bld) 0.8 % 0-1 [facility] Basophils/100 WBC (Bld) 61.5 % 47-70 [facility] Basophils/100 WBC (Bld) 1.7 % 0-5 [facility] Basophil percentageon 2021 Chloride [Moles/Vol] 106 mmol/L 98-107 [facility] Work Phone: Eosinophils/100 WBC (Bld) 1.7 % 0-5 [facility] Work Phone: Glucose [Mass/Vol] 102 mg/dL 74-106 [facility] Work Phone: Comment on above: Fasting Glucose resu lt from 100 to 125 mg/dL suggests IMPAIRED HOMEOSTASIS per A.D.A. criteria. Neutrophils (Bld) [#/Vol] 3.6 10*3/uL 2.0-7.7 [facility] Work Phone: Neutrophils/100 WBC (Bld) 61.5 % 47-70 [facility] Work Phone: Potassium [Moles/Vol] 3.9 mmol/L 3.5-5.1 [facility] Work Phone: Sodium [Moles/Vol] 140 mmol/L 136-145 [facility] Work Phone: WBC (Bld) [#/Vol] 5.9 10*3/uL 4.4-11.0 [facility] Work Phone: Bilirubin Test strip Ql (U)O rdered By: Dr. Chambers on 08-23-2022 Bilirubin Ql (U) Negative Negative [facility] Blood erythrocytes count (nu mber/volume)Ordered By: Dr. Chambers on 08-23-2022 RBC (Bld) [#/Vol] 4.50 10*6/uL 4.2-5.4 [facility] Blood hemoglobin measurement (mass/volume)Ordered By: Dr. Chambers on 08-23-2022 Hemoglobin (Bld) [Mass/Vol] 14.3 g/dL 12.0-15. 0 [facility] Blood lymphocytes/100 leukoc ytesOrdered By: Dr. Chambers on 08-23-2022 Lymphocytes/100 WBC (Bld) 29.1 % 19-41 [facility] Blood monocytes/100 leukocyt esOrdered By: Dr. Chambers on 08-23-2022 Monocytes/100 WBC (Bld) 6.6 % 0-10 [facility] Blood platelet mean volumeOr dered By: Dr. Chambers on 08-23-2022 Platelet mean volume (Bld) [Entitic vol] 8.7 fL 6.2-12.0 [facility] Determination of erythrocyte mean corpuscular volume (MCV)Ordered By: Dr. Chambers on 08-23-2022 MCV (RBC) [Entitic vol] 95.3 fL 81-99 [facility] Hematocrit Auto (Bld) [Volum e fraction]Ordered By: Dr. Chambers on 08-23-2022 Hematocrit (Bld) [Volume fraction] 42.9 % 37-47 [facility] Ketones Test strip Ql (U)Ord ered By: Dr. Chambers on 08-23-2022 Ketones Ql (U) 5 mg/dl Negative [facility] Laboratory - Chemistry and C hemistry - challengeon 08-23-2022 CO2 [Moles/Vol] 30.0 mmol/L 21.0-32.0 [facility] Work Phone: Urea nitrogen/Creatinine [Mass ratio] 12.7 mg/mg 10-20 [facility] Work Phone: Laboratory - Hematology and Cell countson 08-23-2022 Erythrocyte distribution width (RBC) [Entitic vol] 44.5 fL 35.1-43.9 [facility] Work Phone: Erythrocyte distribution width (RBC) [Ratio] 13.1 % 11.6-14.6 [facility] Work Phone: Immature granulocytes/100 WBC (Bld) 0.300 % 0.0-0.9 [facility] Work Phone: Comment on above: IG% - Immature Granu locytes (promyelocytes, myelocytes and metamyelocytes) > 1% indicates that a LEFT SHIFT is Present. MCH (RBC) [Entitic mass] 31.8 pg 27.0-32.0 [facility] Work Phone: Nucleated RBC/100 WBC (Bld) [Ratio] 0 % 0-5 [facility] Work Phone: MCHC Auto (RBC) [Mass/Vol]Or dered By: Dr. Chambers on 08-23-2022 MCHC (RBC) [Mass/Vol] 33.3 g/dL 32-36 [facility] Mucus LM Ql (Urine sed)Order ed By: Dr. Chambers on 08-23-2022 Mucus Ql (Urine sed) 0 SEEN /hpf [facility] Nitrite Test strip Ql (U)Ord ered By: Dr. Chambers on 08-23-2022 Nitrite Ql (U) Negative Negative [facility] No Panel Informationon 08-23 Estimated Creatinine Clearance Calc 55.86 ml/min [facility] Work Phone: Estimated GFR (MDRD) Amer 76 mL/min >60 [facility] Work Phone: Comment on above: GFR Calc Estimated GFR (MDRD) Non-Af Amer 63 mL/min >60 [facility] Work Phone: Comment on above: Non- GFR Calc Troponin I High Sensitivity 17 pg/mL 3.0-54.0 [facility] Work Phone: Comment on above: Please Note: New Amanda t Units and Gender Specific Reference Ranges. For more information see Policy Stat Procedure [place] High Sensitivity Troponin (TNIH) and attachments. No Panel InformationOrdered By: Dr. Chambers on 08-23-2022 31.8 pg 27.0-32.0 [facility] 13.1 % 11.6-14.6 [facility] 44.5 fl 35.1-43.9 [facility] 0.300 % 0.0-0.9 [facility] 0 % 0-5 [facility] 63 mL/min >60 [facility] 76 mL/min >60 [facility] 55.86 ml/min [facility] 12.7 RATIO 10-20 [facility] 17 pg/mL 3.0-54.0 [facility] 30.0 mmol/L 21.0-32.0 [facility] Platelets bldOrdered By: Dr. Chambers on 08-23-2022 Platelets (Bld) [#/Vol] 338 10*3/uL 150-450 [facility] Protein Test strip Ql (U)Ord ered By: Dr. Chambers on 08-23-2022 Protein Ql (U) 15 mg/dl Negative [facility] Serum or plasma calcium areli urement (mass/volume)Ordered By: Dr. Chambers on 08-23-2022 Calcium [Mass/Vol] 9.7 mg/dL 8.5-10.1 [facility] Serum or plasma creatinine m easurement (mass/volume)Ordered By: Dr. Chambers on 08-23-2022 Creatinine [Mass/Vol] 0.94 mg/dL 0.55-1.02 [facility] Comment on above: The validity of the calculated GFR & GFRAA in patients over 70 years has not been determined. Clinical correlation is essential. Serum or plasma urea nitroge n measurement (mass/volume)Ordered By: Dr. Chambers on 08-23-2022 Urea nitrogen [Mass/Vol] 12 mg/dL 7-18 [facility] Squamous epithelial cells de tection in urine sediment by light microscopyOrdered By: Dr. Chambers on 08-23-2022 Epithelial cells.squamous LM Ql (Urine sed) 0-5 SEEN /hpf 5-10 [facility] Thin prep Papanicolaou smear with manual screeningOrdered By: Dr. Chambers on 08-23-2022 Thin prep Papanicolaou smear with manual screening 4 5-15 [facility] Urine blood detectionOrdered By: Dr. Chambers on 08-23-2022 RBC Ql (U) 10 /ul Negative [facility] RBC Ql (U) 0 SEEN /hpf 0-5 [facility] Urine clarityOrdered By: Dr. Chambers on 08-23-2022 Clarity (U) Clear Clear [facility] Urine color determinationOrd ered By: Dr. Chambers on 08-23-2022 Color (U) Yellow Yellow [facility] Urine glucose detectionOrder ed By: Dr. Chambers on 08-23-2022 Glucose Ql (U) Normal mg/dl Normal [facility] Urine leukocyte esterase det ection by dipstickOrdered By: Dr. Chambers on 08-23-2022 Leukocyte esterase Test strip Ql (U) 25 /ul Negative [facility] Urine pHOrdered By: Dr. Graham goodrich on 08-23-2022 pH (U) 7.0 [pH] 5.0 - 8.0 [facility] Urine sediment bacteria coun t by microscopy (number/high power field)Ordered By: Dr. Chambers on 08-23-2022 Bacteria LM.HPF (Urine sed) [#/Area] 0 /[HPF] None Seen [facility] Urine specific gravity measu rementOrdered By: Dr. Chambers on 08-23-2022 Specific gravity (U) [Rel density] 1.005 1.002-1.03 0 [facility] Urobilinogen Auto test strip Ql (U)Ordered By: Dr. Chambers on 08-23-2022 Urobilinogen Ql (U) Normal mg/dl Normal [facility] Absolute lymphocyte countOrd ered By: Dr. Chambers on 08-08-2022 Lymphocytes Auto (Unsp spec) [#/Vol] 2.39 10*3/uL 0.83-4.51 [facility] Basophil percentageOrdered B y: Dr. Chambers on 08-08-2022 Basophil percentage 113 mg/dL 74-106 [facility] Basophil percentage 7.0 g/dL 6.4-8.2 [facility] Basophil percentage 0.20 mg/dL 0.20-1.00 [facility] Basophil percentage 142 mmol/L 136-145 [facility] Basophil percentage 3.7 mmol/L 3.5-5.1 [facility] Basophil percentage 110 mmol/L 98-107 [facility] Basophils (Bld) [#/Vol] 8.6 10*3/uL 4.4-11.0 [facility] Basophils (Bld) [#/Vol] 5.4 10*3/uL 2.0-7.7 [facility] Basophils/100 WBC (Bld) 0.7 % 0-1 [facility] Basophils/100 WBC (Bld) 62.6 % 47-70 [facility] Basophils/100 WBC (Bld) 2.1 % 0-5 [facility] Basophil percentageon 2021 Bilirubin [Mass/Vol] 0.20 mg/dL 0.20-1.00 [facility] Work Phone: Comment on above: For patients on eltr ombopag therapy, use of Dimension [place] TBIL is not recommended. Chloride [Moles/Vol] 110 mmol/L 98-107 [facility] Work Phone: [phone] Eosinophils/100 WBC (Bld) 2.1 % 0-5 [facility] Work Phone: [phone] Glucose [Mass/Vol] 113 mg/dL 74-106 [facility] Work Phone: Comment on above: Fasting Glucose resu lt from 100 to 125 mg/dL suggests IMPAIRED HOMEOSTASIS per A.D.A. criteria. Neutrophils (Bld) [#/Vol] 5.4 10*3/uL 2.0-7.7 [facility] Work Phone: [phone] Neutrophils/100 WBC (Bld) 62.6 % 47-70 [facility] Work Phone: Potassium [Moles/Vol] 3.7 mmol/L 3.5-5.1 [facility] Work Phone: Protein [Mass/Vol] 7.0 g/dL 6.4-8.2 [facility] Work Phone: Sodium [Moles/Vol] 142 mmol/L 136-145 [facility] Work Phone: [phone] WBC (Bld) [#/Vol] 8.6 10*3/uL 4.4-11.0 [facility] Work Phone: Blood erythrocytes count (nu mber/volume)Ordered By: Dr. Chambers on 08-08-2022 RBC (Bld) [#/Vol] 4.30 10*6/uL 4.2-5.4 [facility] Blood hemoglobin measurement (mass/volume)Ordered By: Dr. Chambers on 08-08-2022 Hemoglobin (Bld) [Mass/Vol] 13.9 g/dL 12.0-15. 0 [facility] Blood lymphocytes/100 leukoc ytesOrdered By: Dr. Chambers on 08-08-2022 Lymphocytes/100 WBC (Bld) 28.0 % 19-41 [facility] Blood monocytes/100 leukocyt esOrdered By: Dr. Chambers on 08-08-2022 Monocytes/100 WBC (Bld) 6.2 % 0-10 [facility] Blood platelet mean volumeOr dered By: Dr. Chambers on 08-08-2022 Platelet mean volume (Bld) [Entitic vol] 8.8 fL 6.2-12.0 [facility] Determination of erythrocyte mean corpuscular volume (MCV)Ordered By: Dr. Chambers on 08-08-2022 MCV (RBC) [Entitic vol] 95.6 fL 81-99 [facility] Hematocrit Auto (Bld) [Volum e fraction]Ordered By: Dr. Chambers on 08-08-2022 Hematocrit (Bld) [Volume fraction] 41.1 % 37-47 [facility] Laboratory - Chemistry and C hemistry - challengeon 08-08-2022 ALP [Catalytic activity/Vol] 126 U/L 45-117 [facility] Work Phone: ALT [Catalytic activity/Vol] 15 U/L 13-56 [facility] Work Phone: [phone] CO2 [Moles/Vol] 27.0 mmol/L 21.0-32.0 [facility] Work Phone: Globulin (S) [Mass/Vol] 3.7 g/dL 2.2-4.2 [facility] Work Phone: Lipase [Catalytic activity/Vol] 155 U/L 73-393 [facility] Work Phone: Urea nitrogen/Creatinine [Mass ratio] 18.3 mg/mg 10-20 [facility] Work Phone: Laboratory - Hematology and Cell countson 08-08-2022 Erythrocyte distribution width (RBC) [Entitic vol] 43.4 fL 35.1-43.9 [facility] Work Phone: Erythrocyte distribution width (RBC) [Ratio] 12.5 % 11.6-14.6 [facility] Work Phone: Immature granulocytes/100 WBC (Bld) 0.400 % 0.0-0.9 [facility] Work Phone: Comment on above: IG% - Immature Granu locytes (promyelocytes, myelocytes and metamyelocytes) > 1% indicates that a LEFT SHIFT is Present. MCH (RBC) [Entitic mass] 32.3 pg 27.0-32.0 [facility] Work Phone: Nucleated RBC/100 WBC (Bld) [Ratio] 0 % 0-5 [facility] Work Phone: MCHC Auto (RBC) [Mass/Vol]Or dered By: Dr. Chambers on 08-08-2022 MCHC (RBC) [Mass/Vol] 33.8 g/dL 32-36 [facility] No Panel Informationon 08-08 Estimated Creatinine Clearance Calc 64.03 ml/min [facility] Work Phone: Estimated GFR (MDRD) Amer 90 mL/min >60 [facility] Work Phone: Comment on above: GFR Calc Estimated GFR (MDRD) Non-Af Amer 74 mL/min >60 [facility] Work Phone: Comment on above: Non- GFR Calc No Panel InformationOrdered By: Dr. Chambers on 08-08-2022 32.3 pg 27.0-32.0 [facility] 12.5 % 11.6-14.6 [facility] 43.4 fl 35.1-43.9 [facility] 0.400 % 0.0-0.9 [facility] 0 % 0-5 [facility] 74 mL/min >60 [facility] 90 mL/min >60 [facility] 64.03 ml/min [facility] 18.3 RATIO 10-20 [facility] 3.7 g/dL 2.2-4.2 [facility] 155 U/L 73-393 [facility] 126 U/L 45-117 [facility] 15 U/L 13-56 [facility] 27.0 mmol/L 21.0-32.0 [facility] Platelets bldOrdered By: Dr. Chambers on 08-08-2022 Platelets (Bld) [#/Vol] 232 10*3/uL 150-450 [facility] Serum or plasma albumin areli urement (mass/volume)Ordered By: Dr. Chambers on 08-08-2022 Albumin [Mass/Vol] 3.3 g/dL 3.2-5.0 [facility] Serum or plasma albumin/glob ulin mass ratioOrdered By: Dr. Chambers on 08-08-2022 Albumin/Globulin [Mass ratio] 0.9 {ratio} 0.9-2.4 [facility] Serum or plasma calcium areli urement (mass/volume)Ordered By: Dr. Chambers on 08-08-2022 Calcium [Mass/Vol] 9.3 mg/dL 8.5-10.1 [facility] Serum or plasma creatinine m easurement (mass/volume)Ordered By: Dr. Chambers on 08-08-2022 Creatinine [Mass/Vol] 0.82 mg/dL 0.55-1.02 [facility] Comment on above: The validity of the calculated GFR & GFRAA in patients over 70 years has not been determined. Clinical correlation is essential. Serum or plasma urea nitroge n measurement (mass/volume)Ordered By: Dr. Chambers on 08-08-2022 Urea nitrogen [Mass/Vol] 15 mg/dL 7-18 [facility] Thin prep Papanicolaou smear with manual screeningOrdered By: Dr. Chambers on 08-08-2022 Thin prep Papanicolaou smear with manual screening 10 U/L 15-37 [facility] Thin prep Papanicolaou smear with manual screening 5 5-15 [facility] Absolute lymphocyte countOrd ered By: Dr. Aguilera on 08-04-2022 Lymphocytes Auto (Unsp spec) [#/Vol] 2.95 10*3/uL 0.83-4.51 [facility] Basophil percentageOrdered B y: Dr. Aguilera on 08-04-2022 Basophil percentage 105 mg/dL 74-106 [facility] Basophil percentage 7.1 g/dL 6.4-8.2 [facility] Basophil percentage 0.40 mg/dL 0.20-1.00 [facility] Basophil percentage 141 mmol/L 136-145 [facility] Basophil percentage 3.7 mmol/L 3.5-5.1 [facility] Basophil percentage 106 mmol/L 98-107 [facility] Basophil percentage 0.9 mmol/L 0.4-2.0 [facility] Basophils (Bld) [#/Vol] 6.0 10*3/uL 4.4-11.0 [facility] Basophils (Bld) [#/Vol] 2.3 10*3/uL 2.0-7.7 [facility] Basophils/100 WBC (Bld) 0.8 % 0-1 [facility] Basophils/100 WBC (Bld) 38.8 % 47-70 [facility] Basophils/100 WBC (Bld) 3.7 % 0-5 [facility] Basophil percentageon 2021 Bilirubin [Mass/Vol] 0.40 mg/dL 0.20-1.00 [facility] Work Phone: Comment on above: For patients on eltr ombopag therapy, use of Dimension [place] TBIL is not recommended. Chloride [Moles/Vol] 106 mmol/L 98-107 [facility] Work Phone: Eosinophils/100 WBC (Bld) 3.7 % 0-5 [facility] Work Phone: Glucose [Mass/Vol] 105 mg/dL 74-106 [facility] Work Phone: Comment on above: Fasting Glucose resu lt from 100 to 125 mg/dL suggests IMPAIRED HOMEOSTASIS per A.D.A. criteria. Lactate [Moles/Vol] 0.9 mmol/L 0.4-2.0 [facility] Work Phone: Neutrophils (Bld) [#/Vol] 2.3 10*3/uL 2.0-7.7 [facility] Work Phone: Neutrophils/100 WBC (Bld) 38.8 % 47-70 [facility] Work Phone: Potassium [Moles/Vol] 3.7 mmol/L 3.5-5.1 [facility] Work Phone: Protein [Mass/Vol] 7.1 g/dL 6.4-8.2 [facility] Work Phone: Sodium [Moles/Vol] 141 mmol/L 136-145 [facility] Work Phone: [phone] WBC (Bld) [#/Vol] 6.0 10*3/uL 4.4-11.0 [facility] Work Phone: Blood erythrocytes count (nu mber/volume)Ordered By: Dr. Aguilera on 08-04-2022 RBC (Bld) [#/Vol] 4.63 10*6/uL 4.2-5.4 [facility] Blood hemoglobin measurement (mass/volume)Ordered By: Dr. Aguilera on 08-04-2022 Hemoglobin (Bld) [Mass/Vol] 14.6 g/dL 12.0-15. 0 [facility] Blood lymphocytes/100 leukoc ytesOrdered By: Dr. Aguilera on 08-04-2022 Lymphocytes/100 WBC (Bld) 49.0 % 19-41 [facility] Blood monocytes/100 leukocyt esOrdered By: Dr. Aguilera on 08-04-2022 Monocytes/100 WBC (Bld) 7.5 % 0-10 [facility] Blood platelet mean volumeOr dered By: Dr. Aguilera on 08-04-2022 Platelet mean volume (Bld) [Entitic vol] 8.9 fL 6.2-12.0 [facility] Determination of erythrocyte mean corpuscular volume (MCV)Ordered By: Dr. Aguilera on 08-04-2022 MCV (RBC) [Entitic vol] 95.5 fL 81-99 [facility] Hematocrit Auto (Bld) [Volum e fraction]Ordered By: Dr. Aguilera on 08-04-2022 Hematocrit (Bld) [Volume fraction] 44.2 % 37-47 [facility] INR in Blood by Coagulation assayOrdered By: Dr. Aguilera on 08-04-2022 INR Coag (Bld) [Relative time] 1.1 {INR} [facility] Laboratory - Chemistry and C hemistry - challengeon 08-04-2022 ALP [Catalytic activity/Vol] 115 U/L 45-117 [facility] Work Phone: ALT [Catalytic activity/Vol] 14 U/L 13-56 [facility] Work Phone: CO2 [Moles/Vol] 29.0 mmol/L 21.0-32.0 [facility] Work Phone: Globulin (S) [Mass/Vol] 3.7 g/dL 2.2-4.2 [facility] Work Phone: Urea nitrogen/Creatinine [Mass ratio] 17.5 mg/mg 10-20 [facility] Work Phone: Laboratory - Coagulationon 1 10-04-2021 aPTT Coag (Bld) [Time] 28.9 s 24.1-36.2 [facility] Work Phone: PT Coag (PPP) [Time] 13.6 s 11.7-14.[address] [facility] Work Phone: Laboratory - Hematology and Cell countson 08-04-2022 Erythrocyte distribution width (RBC) [Entitic vol] 44.2 fL 35.1-43.9 [facility] Work Phone: Erythrocyte distribution width (RBC) [Ratio] 12.6 % 11.6-14.6 [facility] Work Phone: Immature granulocytes/100 WBC (Bld) 0.200 % 0.0-0.9 [facility] Work Phone: Comment on above: IG% - Immature Granu locytes (promyelocytes, myelocytes and metamyelocytes) > 1% indicates that a LEFT SHIFT is Present. MCH (RBC) [Entitic mass] 31.5 pg 27.0-32.0 [facility] Work Phone: Nucleated RBC/100 WBC (Bld) [Ratio] 0 % 0-5 [facility] Work Phone: MCHC Auto (RBC) [Mass/Vol]Or dered By: Dr. Aguilera on 08-04-2022 MCHC (RBC) [Mass/Vol] 33.0 g/dL 32-36 [facility] Comment on above: Delta: 35.0 on 08/02 No Panel Informationon 08-04 Estimated Creatinine Clearance Calc 54.13 ml/min [facility] Work Phone: Estimated GFR (MDRD) Amer 74 mL/min >60 [facility] Work Phone: Comment on above: GFR Calc Estimated GFR (MDRD) Non-Af Amer 61 mL/min >60 [facility] Work Phone: Comment on above: Non- GFR Calc No Panel InformationOrdered By: Dr. Aguilera on 08-04-2022 31.5 pg 27.0-32.0 [facility] 12.6 % 11.6-14.6 [facility] 44.2 fl 35.1-43.9 [facility] 0.200 % 0.0-0.9 [facility] 0 % 0-5 [facility] 13.6 SECONDS 11.7-14.9 [facility] 28.9 Seconds 24.1-36.2 [facility] 61 mL/min >60 [facility] 74 mL/min >60 [facility] 54.13 ml/min [facility] 17.5 RATIO 10-20 [facility] 3.7 g/dL 2.2-4.2 [facility] 115 U/L 45-117 [facility] 14 U/L 13-56 [facility] 29.0 mmol/L 21.0-32.0 [facility] Platelets bldOrdered By: Dr. Aguilera on 08-04-2022 Platelets (Bld) [#/Vol] 249 10*3/uL 150-450 [facility] Serum or plasma albumin areli urement (mass/volume)Ordered By: Dr. Aguilera on 08-04-2022 Albumin [Mass/Vol] 3.4 g/dL 3.2-5.0 [facility] Serum or plasma albumin/glob ulin mass ratioOrdered By: Dr. Aguilera on 08-04-2022 Albumin/Globulin [Mass ratio] 0.9 {ratio} 0.9-2.4 [facility] Serum or plasma calcium areli urement (mass/volume)Ordered By: Dr. Aguilera on 08-04-2022 Calcium [Mass/Vol] 9.6 mg/dL 8.5-10.1 [facility] Serum or plasma creatinine m easurement (mass/volume)Ordered By: Dr. Aguilera on 08-04-2022 Creatinine [Mass/Vol] 0.97 mg/dL 0.55-1.02 [facility] Comment on above: The validity of the calculated GFR & GFRAA in patients over 70 years has not been determined. Clinical correlation is essential. Serum or plasma urea nitroge n measurement (mass/volume)Ordered By: Dr. Aguilera on 08-04-2022 Urea nitrogen [Mass/Vol] 17 mg/dL 7-18 [facility] Thin prep Papanicolaou smear with manual screeningOrdered By: Dr. Aguilera on 08-04-2022 Thin prep Papanicolaou smear with manual screening 10 U/L 15-37 [facility] Thin prep Papanicolaou smear with manual screening 6 5-15 [facility] Absolute lymphocyte countOrd ered By: ED PROVIDER on 08-02-2022 Lymphocytes Auto (Unsp spec) [#/Vol] 3.49 10*3/uL 0.83-4.51 [facility] Basophil percentageOrdered B y: ED PROVIDER on 08-02-2022 Basophil percentage 0-5 SEEN /hpf 0-5 [facility] Basophil percentage 93 mg/dL 74-106 [facility] Basophil percentage 139 mmol/L 136-145 [facility] Basophil percentage 3.5 mmol/L 3.5-5.1 [facility] Basophil percentage 105 mmol/L 98-107 [facility] Basophils (Bld) [#/Vol] 7.4 10*3/uL 4.4-11.0 [facility] Basophils (Bld) [#/Vol] 3.1 10*3/uL 2.0-7.7 [facility] Basophils/100 WBC (Bld) 0.9 % 0-1 [facility] Basophils/100 WBC (Bld) 42.3 % 47-70 [facility] Basophils/100 WBC (Bld) 3.0 % 0-5 [facility] Basophil percentageOrdered B y: Dr. Chu on 08-02-2022 Basophil percentage 8.1 g/dL 6.4-8.2 [facility] Basophil percentage 0.40 mg/dL 0.20-1.00 [facility] Basophil percentageon 2021 Bilirubin [Mass/Vol] 0.40 mg/dL 0.20-1.00 [facility] Work Phone: Comment on above: For patients on eltr ombopag therapy, use of Dimension [place] TBIL is not recommended. Chloride [Moles/Vol] 105 mmol/L 98-107 [facility] Work Phone: Eosinophils/100 WBC (Bld) 3.0 % 0-5 [facility] Work Phone: Glucose [Mass/Vol] 93 mg/dL 74-106 [facility] Work Phone: Neutrophils (Bld) [#/Vol] 3.1 10*3/uL 2.0-7.7 [facility] Work Phone: Neutrophils/100 WBC (Bld) 42.3 % 47-70 [facility] Work Phone: Potassium [Moles/Vol] 3.5 mmol/L 3.5-5.1 [facility] Work Phone: Protein [Mass/Vol] 8.1 g/dL 6.4-8.2 [facility] Work Phone: Sodium [Moles/Vol] 139 mmol/L 136-145 [facility] Work Phone: WBC (Bld) [#/Vol] 7.4 10*3/uL 4.4-11.0 [facility] Work Phone: Bilirubin Test strip Ql (U)O rdered By: ED PROVIDER on 08-02-2022 Bilirubin Ql (U) 1 mg/dL Negative [facility] Comment on above: YCOLOR OF URINE MAY AFFECT DIPSTICK RESULTS. Blood erythrocytes count (nu mber/volume)Ordered By: ED PROVIDER on 08-02-2022 RBC (Bld) [#/Vol] 4.75 10*6/uL 4.2-5.4 [facility] Blood hemoglobin measurement (mass/volume)Ordered By: ED PROVIDER on 08-02-2022 Hemoglobin (Bld) [Mass/Vol] 15.6 g/dL 12.0-15. 0 [facility] Blood lymphocytes/100 leukoc ytesOrdered By: ED PROVIDER on 08-02-2022 Lymphocytes/100 WBC (Bld) 47.0 % 19-41 [facility] Blood monocytes/100 leukocyt esOrdered By: ED PROVIDER on 08-02-2022 Monocytes/100 WBC (Bld) 6.7 % 0-10 [facility] Blood platelet mean volumeOr dered By: ED PROVIDER on 08-02-2022 Platelet mean volume (Bld) [Entitic vol] 9.1 fL 6.2-12.0 [facility] Determination of erythrocyte mean corpuscular volume (MCV)Ordered By: ED PROVIDER on 08-02-2022 MCV (RBC) [Entitic vol] 93.9 fL 81-99 [facility] Direct bilirubinOrdered By: Dr. Chu on 08-02-2022 Bilirubin.direct [Mass/Vol] 0.13 mg/dL 0.00-0.3 0 [facility] Hematocrit Auto (Bld) [Volum e fraction]Ordered By: ED PROVIDER on 08-02-2022 Hematocrit (Bld) [Volume fraction] 44.6 % 37-47 [facility] Ketones Test strip Ql (U)Ord ered By: ED PROVIDER on 08-02-2022 Ketones Ql (U) 5 mg/dl Negative [facility] Laboratory - Chemistry and C hemistry - challengeon 08-02-2022 ALP [Catalytic activity/Vol] 129 U/L 45-117 [facility] Work Phone: ALT [Catalytic activity/Vol] 17 U/L 13-56 [facility] Work Phone: [phone] CO2 [Moles/Vol] 29.0 mmol/L 21.0-32.0 [facility] Work Phone: Globulin (S) [Mass/Vol] 4.2 g/dL 2.2-4.2 [facility] Work Phone: Lipase [Catalytic activity/Vol] 82 U/L 73-393 [facility] Work Phone: Urea nitrogen/Creatinine [Mass ratio] 14.4 mg/mg 10-20 [facility] Work Phone: Laboratory - Hematology and Cell countson 08-02-2022 Erythrocyte distribution width (RBC) [Entitic vol] 43.0 fL 35.1-43.9 [facility] Work Phone: Erythrocyte distribution width (RBC) [Ratio] 12.4 % 11.6-14.6 [facility] Work Phone: Immature granulocytes/100 WBC (Bld) 0.100 % 0.0-0.9 [facility] Work Phone: Comment on above: IG% - Immature Granu locytes (promyelocytes, myelocytes and metamyelocytes) > 1% indicates that a LEFT SHIFT is Present. MCH (RBC) [Entitic mass] 32.8 pg 27.0-32.0 [facility] Work Phone: Nucleated RBC/100 WBC (Bld) [Ratio] 0 % 0-5 [facility] Work Phone: MCHC Auto (RBC) [Mass/Vol]Or dered By: ED PROVIDER on 08-02-2022 MCHC (RBC) [Mass/Vol] 35.0 g/dL 32-36 [facility] Mucus LM Ql (Urine sed)Order ed By: ED PROVIDER on 08-02-2022 Mucus Ql (Urine sed) 2+ /hpf [facility] Nitrite Test strip Ql (U)Ord ered By: ED PROVIDER on 08-02-2022 Nitrite Ql (U) Negative Negative [facility] No Panel Informationon 08-02 Estimated Creatinine Clearance Calc 54.13 ml/min [facility] Work Phone: Estimated GFR (MDRD) Amer 74 mL/min >60 [facility] Work Phone: Comment on above: GFR Calc Estimated GFR (MDRD) Non-Af Amer 61 mL/min >60 [facility] Work Phone: Comment on above: Non- GFR Calc No Panel InformationOrdered By: ED PROVIDER on 08-02-2022 32.8 pg 27.0-32.0 [facility] 12.4 % 11.6-14.6 [facility] 43.0 fl 35.1-43.9 [facility] 0.100 % 0.0-0.9 [facility] 0 % 0-5 [facility] 61 mL/min >60 [facility] 74 mL/min >60 [facility] 54.13 ml/min [facility] 14.4 RATIO 10-20 [facility] 29.0 mmol/L 21.0-32.0 [facility] No Panel InformationOrdered By: Dr. Chu on 08-02-2022 4.2 g/dL 2.2-4.2 [facility] 82 U/L 73-393 [facility] 129 U/L 45-117 [facility] 17 U/L 13-56 [facility] Platelets bldOrdered By: ED PROVIDER on 08-02-2022 Platelets (Bld) [#/Vol] 317 10*3/uL 150-450 [facility] Protein Test strip Ql (U)Ord ered By: ED PROVIDER on 08-02-2022 Protein Ql (U) 30 mg/dl Negative [facility] Serum or plasma albumin areli urement (mass/volume)Ordered By: Dr. Chu on 08-02-2022 Albumin [Mass/Vol] 3.9 g/dL 3.2-5.0 [facility] Serum or plasma calcium areli urement (mass/volume)Ordered By: ED PROVIDER on 08-02-2022 Calcium [Mass/Vol] 9.8 mg/dL 8.5-10.1 [facility] Serum or plasma creatinine m easurement (mass/volume)Ordered By: ED PROVIDER on 08-02-2022 Creatinine [Mass/Vol] 0.97 mg/dL 0.55-1.02 [facility] Comment on above: The validity of the calculated GFR & GFRAA in patients over 70 years has not been determined. Clinical correlation is essential. Serum or plasma urea nitroge n measurement (mass/volume)Ordered By: ED PROVIDER on 08-02-2022 Urea nitrogen [Mass/Vol] 14 mg/dL 7-18 [facility] Squamous epithelial cells de tection in urine sediment by light microscopyOrdered By: ED PROVIDER on 08-02-2022 Epithelial cells.squamous LM Ql (Urine sed) 0-5 SEEN /hpf 5-10 [facility] Thin prep Papanicolaou smear with manual screeningOrdered By: Dr. Chu on 08-02-2022 Thin prep Papanicolaou smear with manual screening 13 U/L 15-37 [facility] Thin prep Papanicolaou smear with manual screeningOrdered By: ED PROVIDER on 08-02-2022 Thin prep Papanicolaou smear with manual screening 5 5-15 [facility] Urine blood detectionOrdered By: ED PROVIDER on 08-02-2022 RBC Ql (U) 10 /ul Negative [facility] RBC Ql (U) 0 SEEN /hpf 0-5 [facility] Urine clarityOrdered By: ED PROVIDER on 08-02-2022 Clarity (U) Clear Clear [facility] Urine color determinationOrd ered By: ED PROVIDER on 08-02-2022 Color (U) Yellow Yellow [facility] Urine glucose detectionOrder ed By: ED PROVIDER on 08-02-2022 Glucose Ql (U) Normal mg/dl Normal [facility] Urine leukocyte esterase det ection by dipstickOrdered By: ED PROVIDER on 08-02-2022 Leukocyte esterase Test strip Ql (U) 25 /ul Negative [facility] Urine pHOrdered By: ED PROVI ANDREAS on 08-02-2022 pH (U) 5.0 [pH] 5.0 - 8.0 [facility] Urine sediment bacteria coun t by microscopy (number/high power field)Ordered By: ED PROVIDER on 08-02-2022 Bacteria LM.HPF (Urine sed) [#/Area] 0 /[HPF] None Seen [facility] Urine specific gravity measu rementOrdered By: ED PROVIDER on 08-02-2022 Specific gravity (U) [Rel density] 1.030 1.002-1.03 0 [facility] Urobilinogen Auto test strip Ql (U)Ordered By: ED PROVIDER on 08-02-2022 Urobilinogen Ql (U) Normal mg/dl Normal [facility] Absolute lymphocyte countOrd ered By: Dr. Reyes on 06-29-2022 Lymphocytes Auto (Unsp spec) [#/Vol] 2.61 10*3/uL 0.83-4.51 [facility] Basophil percentageOrdered B y: Dr. Reyes on 06-29-2022 Basophil percentage 107 mg/dL 74-106 [facility] Basophil percentage 141 mmol/L 136-145 [facility] Basophil percentage 4.2 mmol/L 3.5-5.1 [facility] Basophil percentage 108 mmol/L 98-107 [facility] Basophils (Bld) [#/Vol] 6.9 10*3/uL 4.4-11.0 [facility] Basophils (Bld) [#/Vol] 3.4 10*3/uL 2.0-7.7 [facility] Basophils/100 WBC (Bld) 1.0 % 0-1 [facility] Basophils/100 WBC (Bld) 49.3 % 47-70 [facility] Basophils/100 WBC (Bld) 3.9 % 0-5 [facility] Basophil percentageon 2021 Chloride [Moles/Vol] 108 mmol/L 98-107 [facility] Work Phone: Eosinophils/100 WBC (Bld) 3.9 % 0-5 [facility] Work Phone: Glucose [Mass/Vol] 107 mg/dL 74-106 [facility] Work Phone: Comment on above: Fasting Glucose resu lt from 100 to 125 mg/dL suggests IMPAIRED HOMEOSTASIS per A.D.A. criteria. Neutrophils (Bld) [#/Vol] 3.4 10*3/uL 2.0-7.7 [facility] Work Phone: Neutrophils/100 WBC (Bld) 49.3 % 47-70 [facility] Work Phone: Potassium [Moles/Vol] 4.2 mmol/L 3.5-5.1 [facility] Work Phone: Sodium [Moles/Vol] 141 mmol/L 136-145 [facility] Work Phone: WBC (Bld) [#/Vol] 6.9 10*3/uL 4.4-11.0 [facility] Work Phone: Blood erythrocytes count (nu mber/volume)Ordered By: Dr. Reyes on 06-29-2022 RBC (Bld) [#/Vol] 4.68 10*6/uL 4.2-5.4 [facility] Blood hemoglobin measurement (mass/volume)Ordered By: Dr. Reyes on 06-29-2022 Hemoglobin (Bld) [Mass/Vol] 15.0 g/dL 12.0-15. 0 [facility] Blood lymphocytes/100 leukoc ytesOrdered By: Dr. Reyes on 06-29-2022 Lymphocytes/100 WBC (Bld) 38.0 % 19-41 [facility] Blood monocytes/100 leukocyt esOrdered By: Dr. Reyes on 06-29-2022 Monocytes/100 WBC (Bld) 7.4 % 0-10 [facility] Blood platelet mean volumeOr dered By: Dr. Reyes on 06-29-2022 Platelet mean volume (Bld) [Entitic vol] 8.9 fL 6.2-12.0 [facility] Determination of erythrocyte mean corpuscular volume (MCV)Ordered By: Dr. Reyes on 06-29-2022 MCV (RBC) [Entitic vol] 95.1 fL 81-99 [facility] Hematocrit Auto (Bld) [Volum e fraction]Ordered By: Dr. Reyes on 06-29-2022 Hematocrit (Bld) [Volume fraction] 44.5 % 37-47 [facility] Laboratory - Chemistry and C hemistry - challengeon 06-29-2022 CO2 [Moles/Vol] 29.0 mmol/L 21.0-32.0 [facility] Work Phone: Urea nitrogen/Creatinine [Mass ratio] 16.3 mg/mg 10 [facility] Work Phone: Laboratory - Hematology and Cell countson 06-29-2022 Erythrocyte distribution width (RBC) [Entitic vol] 44.4 fL 35.1-43.9 [facility] Work Phone: Erythrocyte distribution width (RBC) [Ratio] 12.9 % 11.6-14.6 [facility] Work Phone: Immature granulocytes/100 WBC (Bld) 0.400 % 0.0-0.9 [facility] Work Phone: Comment on above: IG% - Immature Granu locytes (promyelocytes, myelocytes and metamyelocytes) > 1% indicates that a LEFT SHIFT is Present. MCH (RBC) [Entitic mass] 32.1 pg 27.0-32.0 [facility] Work Phone: Nucleated RBC/100 WBC (Bld) [Ratio] 0 % 0-5 [facility] Work Phone: MCHC Auto (RBC) [Mass/Vol]Or dered By: Dr. Reyes on 06-29-2022 MCHC (RBC) [Mass/Vol] 33.7 g/dL 32-36 [facility] No Panel Informationon 06-29 Estimated Creatinine Clearance Calc 57.07 ml/min [facility] Work Phone: Estimated GFR (MDRD) Amer 79 mL/min >60 [facility] Work Phone: Comment on above: GFR Calc Estimated GFR (MDRD) Non-Af Amer 65 mL/min >60 [facility] Work Phone: Comment on above: Non- GFR Calc Troponin I High Sensitivity 21 pg/mL 3.0-54.0 [facility] Work Phone: Comment on above: Please Note: New Amanda t Units and Gender Specific Reference Ranges. For more information see Policy Stat Procedure [place] High Sensitivity Troponin (TNIH) and attachments. No Panel InformationOrdered By: Dr. Reyes on 06-29-2022 32.1 pg 27.0-32.0 [facility] 12.9 % 11.6-14.6 [facility] 44.4 fl 35.1-43.9 [facility] 0.400 % 0.0-0.9 [facility] 0 % 0-5 [facility] 65 mL/min >60 [facility] 79 mL/min >60 [facility] 57.07 ml/min [facility] 16.3 RATIO 10-20 [facility] 21 pg/mL 3.0-54.0 [facility] 29.0 mmol/L 21.0-32.0 [facility] Platelets bldOrdered By: Dr. Reyes on 06-29-2022 Platelets (Bld) [#/Vol] 295 10*3/uL 150-450 [facility] Serum or plasma calcium areli urement (mass/volume)Ordered By: Dr. Reyes on 06-29-2022 Calcium [Mass/Vol] 9.5 mg/dL 8.5-10.1 [facility] Serum or plasma creatinine m easurement (mass/volume)Ordered By: Dr. Reyes on 06-29-2022 Creatinine [Mass/Vol] 0.92 mg/dL 0.55-1.02 [facility] Comment on above: The validity of the calculated GFR & GFRAA in patients over 70 years has not been determined. Clinical correlation is essential. Serum or plasma urea nitroge n measurement (mass/volume)Ordered By: Dr. Reyes on 06-29-2022 Urea nitrogen [Mass/Vol] 15 mg/dL 7-18 [facility] Thin prep Papanicolaou smear with manual screeningOrdered By: Dr. Reyes on 06-29-2022 Thin prep Papanicolaou smear with manual screening 4 5-15 [facility] Throat Streptococcus pyogene s antigen detection by immunofluorescenceOrdered By: Dr. Chu on 06-11-2022 S. pyogenes Ag IF Ql (Throat) [facility] Absolute lymphocyte countOrd ered By: Dr. Chu on 06-09-2022 Lymphocytes Auto (Unsp spec) [#/Vol] 2.97 10*3/uL 0.83-4.51 [facility] Basophil percentageOrdered B y: Dr. Chu on 06-09-2022 Basophil percentage 104 mg/dL 74-106 [facility] Basophil percentage 144 mmol/L 136-145 [facility] Basophil percentage 3.7 mmol/L 3.5-5.1 [facility] Basophil percentage 110 mmol/L 98-107 [facility] Basophils (Bld) [#/Vol] 7.7 10*3/uL 4.4-11.0 [facility] Basophils (Bld) [#/Vol] 3.8 10*3/uL 2.0-7.7 [facility] Basophils/100 WBC (Bld) 0.8 % 0-1 [facility] Basophils/100 WBC (Bld) 48.6 % 47-70 [facility] Basophils/100 WBC (Bld) 4.4 % 0-5 [facility] Basophil percentageon 2021 Chloride [Moles/Vol] 110 mmol/L 98-107 [facility] Work Phone: Eosinophils/100 WBC (Bld) 4.4 % 0-5 [facility] Work Phone: Glucose [Mass/Vol] 104 mg/dL 74-106 [facility] Work Phone: Comment on above: Fasting Glucose resu lt from 100 to 125 mg/dL suggests IMPAIRED HOMEOSTASIS per A.D.A. criteria. Neutrophils (Bld) [#/Vol] 3.8 10*3/uL 2.0-7.7 [facility] Work Phone: Neutrophils/100 WBC (Bld) 48.6 % 47-70 [facility] Work Phone: Potassium [Moles/Vol] 3.7 mmol/L 3.5-5.1 [facility] Work Phone: Sodium [Moles/Vol] 144 mmol/L 136-145 [facility] Work Phone: WBC (Bld) [#/Vol] 7.7 10*3/uL 4.4-11.0 [facility] Work Phone: Blood erythrocytes count (nu mber/volume)Ordered By: Dr. Chu on 06-09-2022 RBC (Bld) [#/Vol] 4.43 10*6/uL 4.2-5.4 [facility] Blood hemoglobin measurement (mass/volume)Ordered By: Dr. Chu on 06-09-2022 Hemoglobin (Bld) [Mass/Vol] 14.5 g/dL 12.0-15. 0 [facility] Blood lymphocytes/100 leukoc ytesOrdered By: Dr. Chu on 06-09-2022 Lymphocytes/100 WBC (Bld) 38.5 % 19-41 [facility] Blood monocytes/100 leukocyt esOrdered By: Dr. Chu on 06-09-2022 Monocytes/100 WBC (Bld) 7.3 % 0-10 [facility] Blood platelet mean volumeOr dered By: Dr. Chu on 06-09-2022 Platelet mean volume (Bld) [Entitic vol] 9.2 fL 6.2-12.0 [facility] COVID-19 virus antigen assay Ordered By: Dr. Chu on 06-09-2022 SARS-CoV-2 (COVID-19) Ag IA.rapid Ql (Resp) [facility] Determination of erythrocyte mean corpuscular volume (MCV)Ordered By: Dr. Chu on 06-09-2022 MCV (RBC) [Entitic vol] 96.8 fL 81-99 [facility] Hematocrit Auto (Bld) [Volum e fraction]Ordered By: Dr. Chu on 06-09-2022 Hematocrit (Bld) [Volume fraction] 42.9 % 37-47 [facility] Laboratory - Chemistry and C hemistry - challengeon 06-09-2022 CO2 [Moles/Vol] 29.0 mmol/L 21.0-32.0 [facility] Work Phone: Urea nitrogen/Creatinine [Mass ratio] 19.4 mg/mg 10-20 [facility] Work Phone: Laboratory - Hematology and Cell countson 06-09-2022 Erythrocyte distribution width (RBC) [Entitic vol] 47.8 fL 35.1-43.9 [facility] Work Phone: Erythrocyte distribution width (RBC) [Ratio] 13.3 % 11.6-14.6 [facility] Work Phone: Immature granulocytes/100 WBC (Bld) 0.400 % 0.0-0.9 [facility] Work Phone: Comment on above: IG% - Immature Granu locytes (promyelocytes, myelocytes and metamyelocytes) > 1% indicates that a LEFT SHIFT is Present. MCH (RBC) [Entitic mass] 32.7 pg 27.0-32.0 [facility] Work Phone: Nucleated RBC/100 WBC (Bld) [Ratio] 0 % 0-5 [facility] Work Phone: MCHC Auto (RBC) [Mass/Vol]Or dered By: Dr. Chu on 06-09-2022 MCHC (RBC) [Mass/Vol] 33.8 g/dL 32-36 [facility] No Panel Informationon 06-09 Estimated Creatinine Clearance Calc 50.98 ml/min [facility] Work Phone: Estimated GFR (MDRD) Amer 69 mL/min >60 [facility] Work Phone: Comment on above: GFR Calc Estimated GFR (MDRD) Non-Af Amer 57 mL/min >60 [facility] Work Phone: Comment on above: Non- GFR Calc Troponin I High Sensitivity 22 pg/mL 3.0-54.0 [facility] Work Phone: Comment on above: Please Note: New Amanda t Units and Gender Specific Reference Ranges. For more information see Policy Stat Procedure [place] High Sensitivity Troponin (TNIH) and attachments. No Panel InformationOrdered By: Dr. Chu on 06-09-2022 32.7 pg 27.0-32.0 [facility] 13.3 % 11.6-14.6 [facility] 47.8 fl 35.1-43.9 [facility] 0.400 % 0.0-0.9 [facility] 0 % 0-5 [facility] 57 mL/min >60 [facility] 69 mL/min >60 [facility] 50.98 ml/min [facility] 19.4 RATIO 10-20 [facility] 22 pg/mL 3.0-54.0 [facility] 29.0 mmol/L 21.0-32.0 [facility] Platelets bldOrdered By: Dr. Chu on 06-09-2022 Platelets (Bld) [#/Vol] 217 10*3/uL 150-450 [facility] Serum or plasma calcium areli urement (mass/volume)Ordered By: Dr. Chu on 06-09-2022 Calcium [Mass/Vol] 9.2 mg/dL 8.5-10.1 [facility] Serum or plasma creatinine m easurement (mass/volume)Ordered By: Dr. Chu on 06-09-2022 Creatinine [Mass/Vol] 1.03 mg/dL 0.55-1.02 [facility] Comment on above: The validity of the calculated GFR & GFRAA in patients over 70 years has not been determined. Clinical correlation is essential. Serum or plasma urea nitroge n measurement (mass/volume)Ordered By: Dr. Chu on 06-09-2022 Urea nitrogen [Mass/Vol] 20 mg/dL 7-18 [facility] Thin prep Papanicolaou smear with manual screeningOrdered By: Dr. Chu on 06-09-2022 Thin prep Papanicolaou smear with manual screening 5 5-15 [facility] Absolute lymphocyte countOrd ered By: Dr. Williamson on 06-04-2022 Lymphocytes Auto (Unsp spec) [#/Vol] 1.78 10*3/uL 0.83-4.51 [facility] Basophil percentageOrdered B y: Dr. Williamson on 06-04-2022 Basophil percentage 0 SEEN /hpf 0-5 [facility] Basophil percentage 102 mg/dL 74-106 [facility] Basophil percentage 142 mmol/L 136-145 [facility] Basophil percentage 3.7 mmol/L 3.5-5.1 [facility] Basophil percentage 108 mmol/L 98-107 [facility] Basophils (Bld) [#/Vol] 7.0 10*3/uL 4.4-11.0 [facility] Basophils (Bld) [#/Vol] 4.5 10*3/uL 2.0-7.7 [facility] Basophils/100 WBC (Bld) 0.9 % 0-1 [facility] Basophils/100 WBC (Bld) 64.7 % 47-70 [facility] Basophils/100 WBC (Bld) 3.0 % 0-5 [facility] Basophil percentageon 2021 Chloride [Moles/Vol] 108 mmol/L 98-107 [facility] Work Phone: Eosinophils/100 WBC (Bld) 3.0 % 0-5 [facility] Work Phone: Glucose [Mass/Vol] 102 mg/dL 74-106 [facility] Work Phone: Comment on above: Fasting Glucose resu lt from 100 to 125 mg/dL suggests IMPAIRED HOMEOSTASIS per A.D.A. criteria. Neutrophils (Bld) [#/Vol] 4.5 10*3/uL 2.0-7.7 [facility] Work Phone: [phone] Neutrophils/100 WBC (Bld) 64.7 % 47-70 [facility] Work Phone: [phone] Potassium [Moles/Vol] 3.7 mmol/L 3.5-5.1 [facility] Work Phone: Sodium [Moles/Vol] 142 mmol/L 136-145 [facility] Work Phone: [phone] WBC (Bld) [#/Vol] 7.0 10*3/uL 4.4-11.0 [facility] Work Phone: Bilirubin Test strip Ql (U)O rdered By: Dr. Williamson on 06-04-2022 Bilirubin Ql (U) Negative Negative [facility] Blood erythrocytes count (nu mber/volume)Ordered By: Dr. Williamson on 06-04-2022 RBC (Bld) [#/Vol] 4.55 10*6/uL 4.2-5.4 [facility] Blood hemoglobin measurement (mass/volume)Ordered By: Dr. Williamson on 06-04-2022 Hemoglobin (Bld) [Mass/Vol] 14.5 g/dL 12.0-15. 0 [facility] Blood lymphocytes/100 leukoc ytesOrdered By: Dr. Williamson on 06-04-2022 Lymphocytes/100 WBC (Bld) 25.4 % 19-41 [facility] Blood monocytes/100 leukocyt esOrdered By: Dr. Williamson on 06-04-2022 Monocytes/100 WBC (Bld) 5.7 % 0-10 [facility] Blood platelet mean volumeOr dered By: Dr. Williamson on 06-04-2022 Platelet mean volume (Bld) [Entitic vol] 9.0 fL 6.2-12.0 [facility] Determination of erythrocyte mean corpuscular volume (MCV)Ordered By: Dr. Williamson on 06-04-2022 MCV (RBC) [Entitic vol] 94.5 fL 81-99 [facility] Hematocrit Auto (Bld) [Volum e fraction]Ordered By: Dr. Williamson on 06-04-2022 Hematocrit (Bld) [Volume fraction] 43.0 % 37-47 [facility] Ketones Test strip Ql (U)Ord ered By: Dr. Williamson on 06-04-2022 Ketones Ql (U) Negative Negative [facility] Laboratory - Chemistry and C hemistry - challengeon 06-04-2022 CO2 [Moles/Vol] 29.0 mmol/L 21.0-32.0 [facility] Work Phone: Urea nitrogen/Creatinine [Mass ratio] 16.5 mg/mg 10-20 [facility] Work Phone: Laboratory - Hematology and Cell countson 06-04-2022 Erythrocyte distribution width (RBC) [Entitic vol] 45.8 fL 35.1-43.9 [facility] Work Phone: Erythrocyte distribution width (RBC) [Ratio] 13.2 % 11.6-14.6 [facility] Work Phone: Immature granulocytes/100 WBC (Bld) 0.300 % 0.0-0.9 [facility] Work Phone: Comment on above: IG% - Immature Granu locytes (promyelocytes, myelocytes and metamyelocytes) > 1% indicates that a LEFT SHIFT is Present. MCH (RBC) [Entitic mass] 31.9 pg 27.0-32.0 [facility] Work Phone: Nucleated RBC/100 WBC (Bld) [Ratio] 0 % 0-5 [facility] Work Phone: MCHC Auto (RBC) [Mass/Vol]Or dered By: Dr. Williamson on 06-04-2022 MCHC (RBC) [Mass/Vol] 33.7 g/dL 32-36 [facility] Mucus LM Ql (Urine sed)Order ed By: Dr. Williamson on 06-04-2022 Mucus Ql (Urine sed) 0 SEEN /hpf [facility] Nitrite Test strip Ql (U)Ord ered By: Dr. Williamson on 06-04-2022 Nitrite Ql (U) Negative Negative [facility] No Panel Informationon 06-04 Estimated Creatinine Clearance Calc 57.70 ml/min [facility] Work Phone: Estimated GFR (MDRD) Amer 80 mL/min >60 [facility] Work Phone: Comment on above: GFR Calc Estimated GFR (MDRD) Non-Af Amer 66 mL/min >60 [facility] Work Phone: Comment on above: Non- GFR Calc Troponin I High Sensitivity 24 pg/mL 3.0-54.0 [facility] Work Phone: Comment on above: Please Note: New Amanda t Units and Gender Specific Reference Ranges. For more information see Policy Stat Procedure [place] High Sensitivity Troponin (TNIH) and attachments. No Panel InformationOrdered By: Dr. Williamson on 06-04-2022 31.9 pg 27.0-32.0 [facility] 13.2 % 11.6-14.6 [facility] 45.8 fl 35.1-43.9 [facility] 0.300 % 0.0-0.9 [facility] 0 % 0-5 [facility] 66 mL/min >60 [facility] 80 mL/min >60 [facility] 57.70 ml/min [facility] 16.5 RATIO 10-20 [facility] 24 pg/mL 3.0-54.0 [facility] 29.0 mmol/L 21.0-32.0 [facility] Platelets bldOrdered By: Dr. Williamson on 06-04-2022 Platelets (Bld) [#/Vol] 247 10*3/uL 150-450 [facility] Protein Test strip Ql (U)Ord ered By: Dr. Williamson on 06-04-2022 Protein Ql (U) Negative Negative [facility] Serum or plasma calcium areli urement (mass/volume)Ordered By: Dr. Williamson on 06-04-2022 Calcium [Mass/Vol] 9.4 mg/dL 8.5-10.1 [facility] Serum or plasma creatinine m easurement (mass/volume)Ordered By: Dr. Williamson on 06-04-2022 Creatinine [Mass/Vol] 0.91 mg/dL 0.55-1.02 [facility] Comment on above: The validity of the calculated GFR & GFRAA in patients over 70 years has not been determined. Clinical correlation is essential. Serum or plasma urea nitroge n measurement (mass/volume)Ordered By: Dr. Williamson on 06-04-2022 Urea nitrogen [Mass/Vol] 15 mg/dL 7-18 [facility] Squamous epithelial cells de tection in urine sediment by light microscopyOrdered By: Dr. Williamson on 06-04-2022 Epithelial cells.squamous LM Ql (Urine sed) 0-5 SEEN /hpf 5-10 [facility] Thin prep Papanicolaou smear with manual screeningOrdered By: Dr. Williamson on 06-04-2022 Thin prep Papanicolaou smear with manual screening 5 5-15 [facility] Urine blood detectionOrdered By: Dr. Williamson on 06-04-2022 RBC Ql (U) 25 /ul Negative [facility] RBC Ql (U) 0-5 SEEN /hpf 0-5 [facility] Urine clarityOrdered By: Dr. Williamson on 06-04-2022 Clarity (U) Clear Clear [facility] Urine color determinationOrd ered By: Dr. Williamson on 06-04-2022 Color (U) Yellow Yellow [facility] Urine glucose detectionOrder ed By: Dr. Williamson on 06-04-2022 Glucose Ql (U) Normal mg/dl Normal [facility] Urine leukocyte esterase det ection by dipstickOrdered By: Dr. Williamson on 06-04-2022 Leukocyte esterase Test strip Ql (U) Negative Negative [facility] Urine pHOrdered By: Dr. Marquez sol on 06-04-2022 pH (U) 6.0 [pH] 5.0 - 8.0 [facility] Urine sediment bacteria coun t by microscopy (number/high power field)Ordered By: Dr. Williamson on 06-04-2022 Bacteria LM.HPF (Urine sed) [#/Area] RARE /hpf None Seen [facility] Urine specific gravity measu rementOrdered By: Dr. Williamson on 06-04-2022 Specific gravity (U) [Rel density] 1.015 1.002-1.03 0 [facility] Urobilinogen Auto test strip Ql (U)Ordered By: Dr. Williamson on 06-04-2022 Urobilinogen Ql (U) Normal mg/dl Normal [facility] Absolute lymphocyte counton 02-26-2022 Lymphocytes Auto (Unsp spec) [#/Vol] 1.28 10*3/uL 0.83-4.51 [facility] Work Phone: Basophil percentageon 2021 Basophil percentage 0-5 SEEN /hpf 0-5 [facility] Work Phone: Basophils/100 WBC (Bld) 1.1 % 0-1 [facility] Work Phone: Bilirubin [Mass/Vol] 0.50 mg/dL 0.20-1.00 [facility] Work Phone: Comment on above: For patients on eltr ombopag therapy, use of Dimension [place] TBIL is not recommended. Chloride [Moles/Vol] 107 mmol/L 98-107 [facility] Work Phone: Eosinophils/100 WBC (Bld) 6.6 % 0-5 [facility] Work Phone: Glucose [Mass/Vol] 105 mg/dL 74-106 [facility] Work Phone: Comment on above: Fasting Glucose resu lt from 100 to 125 mg/dL suggests IMPAIRED HOMEOSTASIS per A.D.A. criteria. Neutrophils (Bld) [#/Vol] 3.3 10*3/uL 2.0-7.7 [facility] Work Phone: Neutrophils/100 WBC (Bld) 60.7 % 47-70 [facility] Work Phone: Potassium [Moles/Vol] 3.9 mmol/L 3.5-5.1 [facility] Work Phone: Protein [Mass/Vol] 7.5 g/dL 6.4-8.2 [facility] Work Phone: [phone] Sodium [Moles/Vol] 141 mmol/L 136-145 [facility] Work Phone: WBC (Bld) [#/Vol] 5.4 10*3/uL 4.4-11.0 [facility] Work Phone: Bilirubin Test strip Ql (U)o n 02-26-2022 Bilirubin Ql (U) Negative Negative [facility] Work Phone: [phone] Blood erythrocytes count (nu mber/volume)on 02-26-2022 RBC (Bld) [#/Vol] 4.74 10*6/uL 4.2-5.4 [facility] Work Phone: Blood hemoglobin measurement (mass/volume)on 02-26-2022 Hemoglobin (Bld) [Mass/Vol] 14.8 g/dL 12.0-15. 0 [facility] Work Phone: Blood lymphocytes/100 leukoc yteson 02-26-2022 Lymphocytes/100 WBC (Bld) 23.5 % 19-41 [facility] Work Phone: Blood monocytes/100 leukocyt eson 02-26-2022 Monocytes/100 WBC (Bld) 7.9 % 0-10 [facility] Work Phone: Blood platelet mean volumeon 02-26-2022 Platelet mean volume (Bld) [Entitic vol] 9.8 fL 6.2-12.0 [facility] [facility] Work [facility]: Determination of erythrocyte mean corpuscular volume (MCV)on 02-26-2022 MCV (RBC) [Entitic vol] 93.5 fL 81-99 [facility] Work Phone: Hematocrit Auto (Bld) [Volum e fraction]on 02-26-2022 Hematocrit (Bld) [Volume fraction] 44.3 % 37-47 [facility] Work Phone: Ketones Test strip Ql (U)on 02-26-2022 Ketones Ql (U) Negative Negative [facility] Work Phone: Laboratory - Chemistry and C hemistry - challengeon 02-26-2022 ALP [Catalytic activity/Vol] 171 U/L 45-117 [facility] Work Phone: ALT [Catalytic activity/Vol] 13 U/L 13-56 [facility] Work Phone: CO2 [Moles/Vol] 28.0 mmol/L 21.0-32.0 [facility] Work Phone: Globulin (S) [Mass/Vol] 3.9 g/dL 2.2-4.2 [facility] Work Phone: Urea nitrogen/Creatinine [Mass ratio] 15.1 mg/mg 10-20 [facility] Work Phone: Laboratory - Hematology and Cell countson 02-26-2022 Erythrocyte distribution width (RBC) [Entitic vol] 44.2 fL 35.1-43.9 [facility] Work Phone: Erythrocyte distribution width (RBC) [Ratio] 12.9 % 11.6-14.6 [facility] Work Phone: [phone] Immature granulocytes/100 WBC (Bld) 0.200 % 0.0-0.9 [facility] Work Phone: Comment on above: IG% - Immature Granu locytes (promyelocytes, myelocytes and metamyelocytes) > 1% indicates that a LEFT SHIFT is Present. MCH (RBC) [Entitic mass] 31.2 pg 27.0-32.0 [facility] Work Phone: [phone] Nucleated RBC/100 WBC (Bld) [Ratio] 0 % 0-5 [facility] Work Phone: MCHC Auto (RBC) [Mass/Vol]on 02-26-2022 MCHC (RBC) [Mass/Vol] 33.4 g/dL 32-36 [facility]: Mucus LM Ql (Urine sed)on Mucus Ql (Urine sed) 0 SEEN /hpf [facility] Work Phone: Nitrite Test strip Ql (U)on 02-26-2022 Nitrite Ql (U) Negative Negative [facility] Work Phone: No Panel Informationon 02-26 Estimated Creatinine Clearance Calc 53.04 ml/min [facility] Work Phone: Estimated GFR (MDRD) Amer 72 mL/min >60 [facility] Work Phone: Comment on above: GFR Calc Estimated GFR (MDRD) Non-Af Amer 60 mL/min >60 [facility] Work Phone: Comment on above: Non- GFR Calc Troponin I High Sensitivity 21 pg/mL 3.0-54.0 [facility] Work Phone: Comment on above: Please Note: New Amanda t Units and Gender Specific Reference Ranges. For more information see Policy Stat Procedure [place] High Sensitivity Troponin (TNIH) and attachments. Platelets bldon 02-26-2022 Platelets (Bld) [#/Vol] 254 10*3/uL 150-450 [facility] Work Phone: Protein Test strip Ql (U)on 02-26-2022 Protein Ql (U) 15 mg/dl Negative [facility] Work Phone: Serum or plasma albumin areli urement (mass/volume)on 02-26-2022 Albumin [Mass/Vol] 3.6 g/dL 3.2-5.0 [facility] Work Phone: Serum or plasma albumin/glob ulin mass ratioon 02-26-2022 Albumin/Globulin [Mass ratio] 0.9 {ratio} 0.9-2.4 [facility] Work Phone: Serum or plasma calcium areli urement (mass/volume)on 02-26-2022 Calcium [Mass/Vol] 9.8 mg/dL 8.5-10.1 [facility] Work Phone: Serum or plasma creatinine m easurement (mass/volume)on 02-26-2022 Creatinine [Mass/Vol] 0.99 mg/dL 0.55-1.02 [facility] Work Phone: Comment on above: The validity of the calculated GFR & GFRAA in patients over 70 years has not been determined. Clinical correlation is essential. Serum or plasma urea nitroge n measurement (mass/volume)on 02-26-2022 Urea nitrogen [Mass/Vol] 15 mg/dL 7-18 [facility] Work Phone: Squamous epithelial cells de tection in urine sediment by light microscopyon 02-26-2022 Epithelial cells.squamous LM Ql (Urine sed) 0-5 SEEN /hpf 5-10 [facility] Work Phone: Thin prep Papanicolaou smear with manual screeningon 02-26-2022 Thin prep Papanicolaou smear with manual screening 12 U/L 15-37 [facility] Work Phone: Thin prep Papanicolaou smear with manual screening 6 5-15 [facility] Work Phone: Urine blood detectionon 02-06 RBC Ql (U) 10 /ul Negative [facility] Work Phone: RBC Ql (U) 0 SEEN /hpf 0-5 [facility] Work Phone: Urine clarityon 02-26-2022 Clarity (U) Sl. Cloudy Clear [facility] Work Phone: Urine color determinationon 02-26-2022 Color (U) Yellow Yellow [facility] Work Phone: Urine glucose detectionon Glucose Ql (U) Normal mg/dl Normal [facility] Work Phone: Urine leukocyte esterase det ection by dipstickon 02-26-2022 Leukocyte esterase Test strip Ql (U) 25 /ul Negative [facility] Work Phone: Urine pHon 02-26-2022 pH (U) 6.0 [pH] 5.0 - 8.0 [facility] Work Phone: Urine sediment bacteria coun t by microscopy (number/high power field)on 02-26-2022 Bacteria LM.HPF (Urine sed) [#/Area] 0 /[HPF] None Seen [facility] Work Phone: Urine specific gravity measu rementon 02-26-2022 Specific gravity (U) [Rel density] 1.015 1.002-1.03 0 [facility] Work Phone: Urobilinogen Auto test strip Ql (U)on 02-26-2022 Urobilinogen Ql (U) 1 mg/dl Normal [facility] Work Phone: [phone] Absolute lymphocyte counton 01-26-2022 Lymphocytes Auto (Unsp spec) [#/Vol] 1.80 10*3/uL 0.83-4.51 [facility] Work Phone: Basophil percentageon 2021 Basophil percentage 0-5 SEEN /hpf [facility] Work Phone: Basophils/100 WBC (Bld) 0.7 % 0-1 [facility] Work Phone: Bilirubin [Mass/Vol] 0.30 mg/dL 0.20-1.00 [facility] Work Phone: Comment on above: For patients on eltr ombopag therapy, use of Dimension [place] TBIL is not recommended. Chloride [Moles/Vol] 105 mmol/L 98-107 [facility] Work Phone: Eosinophils/100 WBC (Bld) 4.6 % 0-5 [facility] Work Phone: Glucose [Mass/Vol] 95 mg/dL 74-106 [facility] Work Phone: Neutrophils (Bld) [#/Vol] 6.6 10*3/uL 2.0-7.7 [facility] Work Phone: Neutrophils/100 WBC (Bld) 68.7 % 47-70 [facility] Work Phone: Potassium [Moles/Vol] 3.5 mmol/L 3.5-5.1 [facility] Work [facility]: Protein [Mass/Vol] 7.3 g/dL 6.4-8.2 [facility] Work Phone: [phone] Sodium [Moles/Vol] 141 mmol/L 136-145 [facility] Work Phone: [phone] WBC (Bld) [#/Vol] 9.6 10*3/uL 4.4-11.0 [facility] Work Phone: Bilirubin Test strip Ql (U)o n 01-26-2022 Bilirubin Ql (U) Negative Negative [facility] Work Phone: Blood erythrocytes count (nu mber/volume)on 01-26-2022 RBC (Bld) [#/Vol] 4.43 10*6/uL 4.2-5.4 [facility]: Blood hemoglobin measurement (mass/volume)on 01-26-2022 Hemoglobin (Bld) [Mass/Vol] 14.0 g/dL 12.0-15. 0 [facility] Work Phone: Blood lymphocytes/100 leukoc yteson 01-26-2022 Lymphocytes/100 WBC (Bld) 18.7 % 19-41 [facility] Work Phone: Blood monocytes/100 leukocyt eson 01-26-2022 Monocytes/100 WBC (Bld) 7.0 % 0-10 [facility] Work Phone: Blood platelet mean volumeon 01-26-2022 Platelet mean volume (Bld) [Entitic vol] 9.3 fL 6.2-12.0 [facility] Work Phone: [phone] Determination of erythrocyte mean corpuscular volume (MCV)on 01-26-2022 MCV (RBC) [Entitic vol] 95.5 fL 81-99 [facility] Work Phone: [phone] Hematocrit Auto (Bld) [Volum e fraction]on 01-26-2022 Hematocrit (Bld) [Volume fraction] 42.3 % 37-47 [facility] Work Phone: Hyaline casts LM.LPF (Urine sed) [#/Area]on 01-26-2022 Hyaline casts (Urine sed) [#/Area] 0 /[LPF] [facility] Work Phone: Ketones Test strip Ql (U)on 01-26-2022 Ketones Ql (U) Negative Negative [facility] Work Phone: Laboratory - Chemistry and C hemistry - challengeon 01-26-2022 ALP [Catalytic activity/Vol] 184 U/L 45-117 [facility] Work Phone: ALT [Catalytic activity/Vol] 21 U/L 13-56 [facility] Work Phone: CO2 [Moles/Vol] 31.0 mmol/L 21.0-32.0 [facility] Work Phone: Globulin (S) [Mass/Vol] 3.9 g/dL 2.2-4.2 [facility] Work Phone: Urea nitrogen/Creatinine [Mass ratio] 18.1 mg/mg 10-20 [facility] Work Phone: Laboratory - Hematology and Cell countson 01-26-2022 Erythrocyte distribution width (RBC) [Entitic vol] 49.3 fL 35.1-43.9 [facility] Work Phone: Erythrocyte distribution width (RBC) [Ratio] 14.0 % 11.6-14.6 [facility] Work Phone: Immature granulocytes/100 WBC (Bld) 0.300 % 0.0-0.9 [facility] Work Phone: Comment on above: IG% - Immature Granu locytes (promyelocytes, myelocytes and metamyelocytes) > 1% indicates that a LEFT SHIFT is Present. MCH (RBC) [Entitic mass] 31.6 pg 27.0-32.0 [facility] Work Phone: Nucleated RBC/100 WBC (Bld) [Ratio] 0 % 0-5 [facility] Work Phone: MCHC Auto (RBC) [Mass/Vol]on 01-26-2022 MCHC (RBC) [Mass/Vol] 33.1 g/dL 32-36 [facility] Work Phone: Mucus LM Ql (Urine sed)on Mucus Ql (Urine sed) RARE /hpf [facility] Work Phone: Nitrite Test strip Ql (U)on 01-26-2022 Nitrite Ql (U) Negative Negative [facility] Work Phone: No Panel Informationon 01-26 SARS-CoV-2 & FLU Antigen (Rapid) [facility] Work Phone: D-Dimer Quantitative (PE/DVT) 1.14 FEU/ug/m 0.27-0.49 [facility] Work Phone: Comment on above: D-Dimer ELEVATED (>0 .49): Additional studies and clinicalassessments are indicated to conclude diagnosis of:Deep Vein Thrombosis (DVT) or Pulmonary Embolism (PE)CRITICAL VALUE VERIFIED. CALLED TO SLCZUBN367/22/22 1621 Danielle Perez.RESULTS READ BACK BY SAME . Estimated Creatinine Clearance Calc 48.07 ml/min [facility] Work Phone: Estimated GFR (MDRD) Amer 68 mL/min >60 [facility] Work Phone: Comment on above: GFR Calc Estimated GFR (MDRD) Non-Af Amer 56 mL/min >60 [facility] Work Phone: Comment on above: Non- GFR Calc Troponin I High Sensitivity 40 pg/mL 3.0-54.0 [facility] Work Phone: Comment on above: Please Note: New Amanda t Units and Gender Specific Reference Ranges. For more information see Policy Stat Procedure [place] High Sensitivity Troponin (TNIH) and attachments. Platelets bldon 01-26-2022 Platelets (Bld) [#/Vol] 288 10*3/uL 150-450 [facility] Work Phone: Protein Test strip Ql (U)on 01-26-2022 Protein Ql (U) 15 mg/dl Negative [facility] Work Phone: Serum or plasma albumin areli urement (mass/volume)on 01-26-2022 Albumin [Mass/Vol] 3.4 g/dL 3.2-5.0 [facility] Work Phone: Serum or plasma albumin/glob ulin mass ratioon 01-26-2022 Albumin/Globulin [Mass ratio] 0.9 {ratio} 0.9-2.4 [facility] Work Phone: Serum or plasma calcium areli urement (mass/volume)on 01-26-2022 Calcium [Mass/Vol] 9.4 mg/dL 8.5-10.1 [facility] Work Phone: Serum or plasma creatinine m easurement (mass/volume)on 01-26-2022 Creatinine [Mass/Vol] 1.05 mg/dL 0.55-1.02 [facility] Work Phone: Comment on above: The validity of the calculated GFR & GFRAA in patients over 70 years has not been determined. Clinical correlation is essential. Serum or plasma urea nitroge n measurement (mass/volume)on 01-26-2022 Urea nitrogen [Mass/Vol] 19 mg/dL 7-18 [facility] Work Phone: Squamous epithelial cells de tection in urine sediment by light microscopyon 01-26-2022 Epithelial cells.squamous LM Ql (Urine sed) 0-5 SEEN /hpf [facility] Work Phone: Thin prep Papanicolaou smear with manual screeningon 01-26-2022 Thin prep Papanicolaou smear with manual screening 15 U/L 15-37 [facility] Work Phone: Thin prep Papanicolaou smear with manual screening 5 5-15 [facility] Work Phone: Urine blood detectionon 01-06 RBC Ql (U) 50 /ul Negative [facility] Work Phone: RBC Ql (U) 0-5 SEEN /hpf [facility] Work Phone: Urine clarityon 01-26-2022 Clarity (U) Sl. Cloudy Clear [facility] Work Phone: Urine color determinationon 01-26-2022 Color (U) Yellow Yellow [facility] Work Phone: Urine glucose detectionon Glucose Ql (U) Normal mg/dl Normal [facility] Work Phone: Urine leukocyte esterase det ection by dipstickon 01-26-2022 Leukocyte esterase Test strip Ql (U) Negative Negative [facility] Work Phone: Urine pHon 01-26-2022 pH (U) 6.5 [pH] [facility] Work Phone: Urine sediment bacteria coun t by microscopy (number/high power field)on 01-26-2022 Bacteria LM.HPF (Urine sed) [#/Area] 0 /[HPF] None Seen [facility] Work Phone: Urine specific gravity measu rementon 01-26-2022 Specific gravity (U) [Rel density] 1.020 [facility] Work Phone: Urobilinogen Auto test strip Ql (U)on 01-26-2022 Urobilinogen Ql (U) Normal mg/dl Normal [facility] Work Phone: Absolute lymphocyte counton 01-20-2022 Lymphocytes Auto (Unsp spec) [#/Vol] 2.22 10*3/uL 0.83-4.51 [facility] Work Phone: Basophil percentageon 2021 Basophils/100 WBC (Bld) 0.6 % 0-1 [facility] Work Phone: Bilirubin [Mass/Vol] 0.30 mg/dL 0.20-1.00 [facility] Work Phone: Comment on above: For patients on eltr ombopag therapy, use of Dimension [place] TBIL is not recommended. Chloride [Moles/Vol] 105 mmol/L 98-107 [facility] Work Phone: [phone] Cholesterol [Mass/Vol] 131 mg/dL <200 [facility] Work Phone: Comment on above: <200 mg/dL Desirable 200-240 mg/dL Borderline >240 mg/dL High Risk Eosinophils/100 WBC (Bld) 5.2 % 0-5 [facility] Work Phone: Glucose [Mass/Vol] 97 mg/dL 74-106 [facility] Work Phone: Neutrophils (Bld) [#/Vol] 4.8 10*3/uL 2.0-7.7 [facility] Work Phone: Neutrophils/100 WBC (Bld) 58.8 % 47-70 [facility] Work Phone: Potassium [Moles/Vol] 3.8 mmol/L 3.5-5.1 [facility]: Protein [Mass/Vol] 6.0 g/dL 6.4-8.2 [facility]: Sodium [Moles/Vol] 140 mmol/L 136-145 [facility] Work Phone: [phone] Triglyceride [Mass/Vol] 157 mg/dL [facility] Work Phone: Comment on above: The drugs N-Acetylcy steine and Metamizole may falsely depress this assay.Serum Triglycerides Reference Interval Normal <150 mg/dL Borderline high 150 - 199 mg/dL High 200 - 499 mg/dL Very High > or = 500 mg/dL WBC (Bld) [#/Vol] 8.1 10*3/uL 4.4-11.0 [facility] Work Phone: Blood erythrocytes count (nu mber/volume)on 01-20-2022 RBC (Bld) [#/Vol] 3.79 10*6/uL 4.2-5.4 [facility] Work Phone: Blood hemoglobin measurement (mass/volume)on 01-20-2022 Hemoglobin (Bld) [Mass/Vol] 12.0 g/dL 12.0-15. 0 [facility] Work Phone: Blood lymphocytes/100 leukoc yteson 01-20-2022 Lymphocytes/100 WBC (Bld) 27.3 % 19-41 [facility] Work Phone: Blood monocytes/100 leukocyt eson 01-20-2022 Monocytes/100 WBC (Bld) 7.5 % 0-10 [facility] Work Phone: Blood platelet mean volumeon 01-20-2022 Platelet mean volume (Bld) [Entitic vol] 9.3 fL 6.2-12.0 [facility] Work Phone: Determination of erythrocyte mean corpuscular volume (MCV)on 01-20-2022 MCV (RBC) [Entitic vol] 100.5 fL 81-99 [facility] Work Phone: Hematocrit Auto (Bld) [Volum e fraction]on 01-20-2022 Hematocrit (Bld) [Volume fraction] 38.1 % 37-47 [facility] Work Phone: Laboratory - Chemistry and C hemistry - challengeon 01-20-2022 ALP [Catalytic activity/Vol] 165 U/L 45-117 [facility] Work Phone: ALT [Catalytic activity/Vol] 27 U/L 13-56 [facility] Work Phone: CO2 [Moles/Vol] 35.0 mmol/L 21.0-32.0 [facility] Work Phone: Globulin (S) [Mass/Vol] 3.4 g/dL 2.2-4.2 [facility] Work Phone: Magnesium [Mass/Vol] 1.9 mg/dL 1.6-2.6 [facility] Work Phone: Urea nitrogen/Creatinine [Mass ratio] 25.7 mg/mg 10-20 [facility] Work Phone: Laboratory - Hematology and Cell countson 01-20-2022 Erythrocyte distribution width (RBC) [Entitic vol] 48.7 fL 35.1-43.9 [facility] Work Phone: Erythrocyte distribution width (RBC) [Ratio] 13.2 % 11.6-14.6 [facility] Work Phone: Immature granulocytes/100 WBC (Bld) 0.600 % 0.0-0.9 [facility] Work Phone: Comment on above: IG% - Immature Granu locytes (promyelocytes, myelocytes and metamyelocytes) > 1% indicates that a LEFT SHIFT is Present. MCH (RBC) [Entitic mass] 31.7 pg 27.0-32.0 [facility] Work Phone: Nucleated RBC/100 WBC (Bld) [Ratio] 0 % 0-5 [facility] Work Phone: MCHC Auto (RBC) [Mass/Vol]on 01-20-2022 MCHC (RBC) [Mass/Vol] 31.5 g/dL 32-36 [facility] Work Phone: No Panel Informationon 01-20 Estimated Creatinine Clearance Calc 56.71 ml/min [facility] Work Phone: Estimated GFR (MDRD) Amer 81 mL/min >60 [facility] Work Phone: Comment on above: GFR Calc Estimated GFR (MDRD) Non-Af Amer 67 mL/min >60 [facility] Work Phone: Comment on above: Non- GFR Calc Platelets bldon 01-20-2022 Platelets (Bld) [#/Vol] 259 10*3/uL 150-450 [facility] Work Phone: Serum or plasma albumin areli urement (mass/volume)on 01-20-2022 Albumin [Mass/Vol] 2.6 g/dL 3.2-5.0 [facility] Work Phone: Serum or plasma albumin/glob ulin mass ratioon 01-20-2022 Albumin/Globulin [Mass ratio] 0.8 {ratio} 0.9-2.4 [facility] Work Phone: Serum or plasma calcium areli urement (mass/volume)on 01-20-2022 Calcium [Mass/Vol] 8.6 mg/dL 8.5-10.1 [facility] Work Phone: Serum or plasma cholesterol in HDL measurement (mass/volume)on 01-20-2022 Cholesterol in HDL [Mass/Vol] 32 mg/dL [facility] Work Phone: Comment on above: The drugs N-Acetylcy steine and Metamizole may falsely depress this assay. Reference Range HDL <40 mg/dL Low HDL Cholesterol HDL >or= 60 mg/dL High HDL Cholesterol Serum or plasma cholesterol in VLDL measurement (mass/volume)on 01-20-2022 Cholesterol in VLDL [Mass/Vol] 31 mg/dL 5-40 [facility] Work Phone: Serum or plasma creatinine m easurement (mass/volume)on 01-20-2022 Creatinine [Mass/Vol] 0.89 mg/dL 0.55-1.02 [facility] Work Phone: Comment on above: The validity of the calculated GFR & GFRAA in patients over 70 years has not been determined. Clinical correlation is essential. Serum or plasma low density lipoprotein (LDL) cholesterol measurement (mass/volume)on 01-20-2022 Cholesterol in LDL [Mass/Vol] 68 mg/dL 0-130 [facility] Work Phone: Serum or plasma urea nitroge n measurement (mass/volume)on 01-20-2022 Urea nitrogen [Mass/Vol] 23 mg/dL 7-18 [facility] Work Phone: Thin prep Papanicolaou smear with manual screeningon 01-20-2022 Thin prep Papanicolaou smear with manual screening 20 U/L 15-37 [facility] Work Phone: Thin prep Papanicolaou smear with manual screening 0 5-15 [facility] Work Phone: No Panel Informationon 01-17 Troponin I High Sensitivity 1176 pg/mL 3.0-54.0 [facility] Work Phone: Comment on above: Critical Result(s) C alled at: 12:41:20 01/17/2022 by: Kaye Mae. Results read back by same. Please Note: New Test Units and Gender Specific Reference Ranges. For more information see Policy Stat Procedure [place] High Sensitivity Troponin (TNIH) and attachments. D-Dimer Quantitative (PE/DVT) 1.34 FEU/ug/m 0.27-0.49 [facility] Work Phone: Comment on above: D-Dimer ELEVATED (>0 .49): Additional studies and clinicalassessments are indicated to conclude diagnosis of:Deep Vein Thrombosis (DVT) or Pulmonary Embolism (PE)CRITICAL VALUE VERIFIED. CALLED TO SAMANTA NGUYEN (ICU)01/17/22 0748 Scot Livingston.RESULTS READ BACK BY SAME. Thyroid Stimulating Hormone (TSH) 2.76 uIU/mL 0.358-3.74 [facility] Work Phone: Absolute lymphocyte counton 01-01-2022 Lymphocytes Auto (Unsp spec) [#/Vol] 2.70 10*3/uL 0.83-4.51 [facility] Work Phone: Basophil percentageon 2021 Basophils/100 WBC (Bld) 1.1 % 0-1 [facility] Work Phone: Chloride [Moles/Vol] 106 mmol/L 98-107 [facility]: Eosinophils/100 WBC (Bld) 11.8 % 0-5 [facility] Work Phone: Glucose [Mass/Vol] 84 mg/dL 74-106 [facility] Work Phone: Neutrophils (Bld) [#/Vol] 3.9 10*3/uL 2.0-7.7 [facility] Work Phone: Neutrophils/100 WBC (Bld) 46.3 % 47-70 [facility] Work Phone: Potassium [Moles/Vol] 4.6 mmol/L 3.5-5.1 [facility] Work Phone: Comment on above: Moderate Hemolysis, Result may be falsely increased. Sodium [Moles/Vol] 139 mmol/L 136-145 [facility] Work Phone: WBC (Bld) [#/Vol] 8.5 10*3/uL 4.4-11.0 [facility] Work Phone: Blood erythrocytes count (nu mber/volume)on 01-01-2022 RBC (Bld) [#/Vol] 4.64 10*6/uL 4.2-5.4 [facility] Work Phone: Blood hemoglobin measurement (mass/volume)on 01-01-2022 Hemoglobin (Bld) [Mass/Vol] 14.7 g/dL 12.0-15. 0 [facility] Work Phone: Blood lymphocytes/100 leukoc yteson 01-01-2022 Lymphocytes/100 WBC (Bld) 32.0 % 19-41 [facility] Work Phone: Blood monocytes/100 leukocyt eson 01-01-2022 Monocytes/100 WBC (Bld) 8.3 % 0-10 [facility] Work Phone: Blood platelet mean volumeon 01-01-2022 Platelet mean volume (Bld) [Entitic vol] 9.9 fL 6.2-12.0 [facility] Work Phone: Determination of erythrocyte mean corpuscular volume (MCV)on 01-01-2022 MCV (RBC) [Entitic vol] 95.0 fL 81-99 [facility] Work Phone: Glucose Glucometer (BldC) [M ass/Vol]on 01-01-2022 Glucose [Mass/Vol] 111 mg/dL 74-106 [facility] Work Phone: Comment on above: MANAGEMENT OF PATIEN T CARE PER NURSING PROTOCOL Hematocrit Auto (Bld) [Volum e fraction]on 01-01-2022 Hematocrit (Bld) [Volume fraction] 44.1 % 37-47 [facility] Work Phone: Laboratory - Chemistry and C hemistry - challengeon 01-01-2022 CO2 [Moles/Vol] 30.0 mmol/L 21.0-32.0 [facility] Work Phone: Urea nitrogen/Creatinine [Mass ratio] 24.3 mg/mg 10-20 [facility] Work Phone: Laboratory - Hematology and Cell countson 01-01-2022 Erythrocyte distribution width (RBC) [Entitic vol] 45.1 fL 35.1-43.9 [facility] Work Phone: Erythrocyte distribution width (RBC) [Ratio] 13.1 % 11.6-14.6 [facility] Work Phone: Immature granulocytes/100 WBC (Bld) 0.500 % 0.0-0.9 [facility] Work Phone: Comment on above: IG% - Immature Granu locytes (promyelocytes, myelocytes and metamyelocytes) > 1% indicates that a LEFT SHIFT is Present. MCH (RBC) [Entitic mass] 31.7 pg 27.0-32.0 [facility] Work Phone: Nucleated RBC/100 WBC (Bld) [Ratio] 0 % 0-5 [facility] Work Phone: MCHC Auto (RBC) [Mass/Vol]on 01-01-2022 MCHC (RBC) [Mass/Vol] 33.3 g/dL 32-36 [facility] Work Phone: No Panel Informationon 01-01 Estimated Creatinine Clearance Calc 64.03 ml/min [facility] Work Phone: Estimated GFR (MDRD) Amer 89 mL/min >60 [facility] Work Phone: Comment on above: GFR Calc Estimated GFR (MDRD) Non-Af Amer 74 mL/min >60 [facility] Work Phone: Comment on above: Non- GFR Calc Platelets bldon 01-01-2022 Platelets (Bld) [#/Vol] 235 10*3/uL 150-450 [facility] Work Phone: Serum or plasma calcium areli urement (mass/volume)on 01-01-2022 Calcium [Mass/Vol] 8.8 mg/dL 8.5-10.1 [facility] Work Phone: Serum or plasma creatinine m easurement (mass/volume)on 01-01-2022 Creatinine [Mass/Vol] 0.82 mg/dL 0.55-1.02 [facility] Work Phone: Comment on above: The validity of the calculated GFR & GFRAA in patients over 70 years has not been determined. Clinical correlation is essential. Serum or plasma urea nitroge n measurement (mass/volume)on 01-01-2022 Urea nitrogen [Mass/Vol] 20 mg/dL 7-18 [facility] Work Phone: Thin prep Papanicolaou smear with manual screeningon 01-01-2022 Thin prep Papanicolaou smear with manual screening 3 5-15 [facility] Work Phone: Absolute lymphocyte counton 09-02-2021 Lymphocytes Auto (Unsp spec) [#/Vol] 3.19 10*3/uL 0.83-4.51 [facility] Work Phone: Basophil percentageon 2020 Bilirubin [Mass/Vol] 0.30 mg/dL 0.20-1.00 [facility] Work Phone: Comment on above: For patients on eltr ombopag therapy, use of Dimension [place] TBIL is not recommended. Chloride [Moles/Vol] 110 mmol/L 98-107 [facility] Work Phone: Cholesterol [Mass/Vol] 195 mg/dL <200 [facility] Work Phone: Comment on above: <200 mg/dL Desirable 200-240 mg/dL Borderline >240 mg/dL High Risk Eosinophils/100 WBC (Bld) 6.8 % 0-5 [facility] Work Phone: Glucose [Mass/Vol] 99 mg/dL 74-106 [facility] Work Phone: Comment on above: Please note revised GLUCOSE reference range effective 2017. Neutrophils (Bld) [#/Vol] 2.5 10*3/uL 2.0-7.7 [facility] Work Phone: Potassium [Moles/Vol] 4.1 mmol/L 3.5-5.1 [facility] Work Phone: Protein [Mass/Vol] 6.6 g/dL 6.4-8.2 [facility] Work Phone: Sodium [Moles/Vol] 143 mmol/L 136-145 [facility] Work Phone: Triglyceride [Mass/Vol] 193 mg/dL [facility] Work Phone: Comment on above: The drugs N-Acetylcy steine and Metamizole may falsely depress this assay.Serum Triglycerides Reference Interval Normal <150 mg/dL Borderline high 150 - 199 mg/dL High 200 - 499 mg/dL Very High > or = 500 mg/dL WBC (Bld) [#/Vol] 6.6 10*3/uL 4.4-11.0 [facility] Work Phone: Blood erythrocytes count (nu mber/volume)on 09-02-2021 RBC (Bld) [#/Vol] 4.08 10*6/uL 4.2-5.4 [facility] Work Phone: Blood hemoglobin measurement (mass/volume)on 09-02-2021 Hemoglobin (Bld) [Mass/Vol] 12.8 g/dL 12.0-15. 0 [facility] Work Phone: Blood lymphocytes/100 leukoc yteson 09-02-2021 Lymphocytes/100 WBC (Bld) 48.0 % 19-41 [facility] Work Phone: Blood monocytes/100 leukocyt eson 09-02-2021 Monocytes/100 WBC (Bld) 6.5 % 0-10 [facility] Work Phone: Blood platelet mean volumeon 09-02-2021 Platelet mean volume (Bld) [Entitic vol] 9.3 fL 6.2-12.0 [facility] Work Phone: Determination of erythrocyte mean corpuscular volume (MCV)on 09-02-2021 MCV (RBC) [Entitic vol] 94.6 fL 81-99 [facility] Work Phone: Hematocrit Auto (Bld) [Volum e fraction]on 09-02-2021 Hematocrit (Bld) [Volume fraction] 38.6 % 37-47 [facility] Work Phone: Laboratory - Chemistry and C hemistry - challengeon 09-02-2021 ALP [Catalytic activity/Vol] 105 U/L 45-117 [facility] Work Phone: ALT [Catalytic activity/Vol] 19 U/L 13-56 [facility] Work Phone: CO2 [Moles/Vol] 28.0 mmol/L 21.0-32.0 [facility] Work Phone: Globulin (S) [Mass/Vol] 3.7 g/dL 2.2-4.2 [facility] Work Phone: Urea nitrogen/Creatinine [Mass ratio] 23.8 mg/mg 10-20 [facility] Work Phone: Laboratory - Hematology and Cell countson 09-02-2021 Basophils/100 WBC (Unsp spec) 1.1 % 0-1 [facility] Work Phone: Erythrocyte distribution width (RBC) [Entitic vol] 49.0 fL 35.1-43.9 [facility]: Erythrocyte distribution width (RBC) [Ratio] 14.2 % 11.6-14.6 [facility] Work Phone: Immature granulocytes/100 WBC (Bld) 0.200 % 0.0-0.9 [facility] Work Phone: Comment on above: IG% - Immature Granu locytes (promyelocytes, myelocytes and metamyelocytes) > 1% indicates that a LEFT SHIFT is Present. MCH (RBC) [Entitic mass] 31.4 pg 27.0-32.0 [facility] Work Phone: Neutrophils/100 WBC (Bld) 37.4 % 47-70 [facility] Work Phone: Nucleated RBC/100 WBC (Bld) [Ratio] 0 % 0-5 [facility] Work Phone: MCHC Auto (RBC) [Mass/Vol]on 09-02-2021 MCHC (RBC) [Mass/Vol] 33.2 g/dL 32-36 [facility] Work Phone: No Panel Informationon 09-02 Estimated Creatinine Clearance Calc 70.01 ml/min [facility] Work Phone: Estimated GFR (MDRD) Amer 99 mL/min >60 [facility] Work Phone: Comment on above: GFR Calc Estimated GFR (MDRD) Non-Af Amer 82 mL/min >60 [facility] Work Phone: Comment on above: Non- GFR Calc Platelets bldon 09-02-2021 Platelets (Bld) [#/Vol] 233 10*3/uL 150-450 [facility] Work Phone: Serum or plasma albumin areli urement (mass/volume)on 09-02-2021 Albumin [Mass/Vol] 2.9 g/dL 3.2-5.0 [facility] Work Phone: Serum or plasma albumin/glob ulin mass ratioon 09-02-2021 Albumin/Globulin [Mass ratio] 0.8 {ratio} 0.9-2.4 [facility] Work Phone: Serum or plasma calcium areli urement (mass/volume)on 09-02-2021 Calcium [Mass/Vol] 8.9 mg/dL 8.5-10.1 [facility] Work Phone: Serum or plasma cholesterol in HDL measurement (mass/volume)on 09-02-2021 Cholesterol in HDL [Mass/Vol] 43 mg/dL [facility] Work Phone: Comment on above: The drugs N-Acetylcy steine and Metamizole may falsely depress this assay. Reference Range HDL <40 mg/dL Low HDL Cholesterol HDL >or= 60 mg/dL High HDL Cholesterol Serum or plasma cholesterol in VLDL measurement (mass/volume)on 09-02-2021 Cholesterol in VLDL [Mass/Vol] 39 mg/dL 5-40 [facility] Work Phone: Serum or plasma creatinine m easurement (mass/volume)on 09-02-2021 Creatinine [Mass/Vol] 0.76 mg/dL 0.55-1.02 [facility] Work Phone: Comment on above: The validity of the calculated GFR & GFRAA in patients over 70 years has not been determined. Clinical correlation is essential. Serum or plasma low density lipoprotein (LDL) cholesterol measurement (mass/volume)on 09-02-2021 Cholesterol in LDL [Mass/Vol] 113 mg/dL 0-130 [facility] Work Phone: Serum or plasma urea nitroge n measurement (mass/volume)on 09-02-2021 Urea nitrogen [Mass/Vol] 18 mg/dL 7-18 [facility] Work Phone: Thin prep Papanicolaou smear with manual screeningon 09-02-2021 Thin prep Papanicolaou smear with manual screening 19 U/L 15-37 [facility] Work Phone: Thin prep Papanicolaou smear with manual screening 5 5-15 [facility] Work Phone: INR in Blood by Coagulation assayon 09-01-2021 INR Coag (Bld) [Relative time] 1.0 {INR} [facility] Work Phone: Laboratory - Coagulationon 1 11-02-2020 aPTT Coag (Bld) [Time] 27.5 s 24.1-36.2 [facility] Work Phone: PT Coag (PPP) [Time] 12.3 s 11.7-14.9 [facility] Work Phone: No Panel Informationon 09-01 Troponin I High Sensitivity 104 pg/mL 3.0-54.0 [facility] Work Phone: Comment on above: Please Note: New Amanda t Units and Gender Specific Reference Ranges. For more information see Policy Stat Procedure [place] High Sensitivity Troponin (TNIH) and attachments. D-Dimer Quantitative (PE/DVT) 0.86 FEU/ug/m 0.27-0.49 [facility] Work Phone: Comment on above: D-Dimer ELEVATED (>0 .49): Additional studies and clinicalassessments are indicated to conclude diagnosis of:Deep Vein Thrombosis (DVT) or Pulmonary Embolism (PE)CRITICAL VALUE VERIFIED. CALLED TO GUS DUGAN09/01/21 0950 Elizabeth Wynn.RESULTS READ BACK BY SAME . Whole blood hemoglobin A1c/t otal hemoglobin ratio (mass fraction)on 09-01-2021 HbA1c (Bld) [Mass fraction] 5.1 % 3.8-5.6 [facility] Work Phone: Comment on above: Normal < 5.7 % Predi abetic 5.7 - 6.4 % Diabetic >or= 6.5 % Please note range changes. CR Ribs w/ PA Chest Lefton 1 09-25-2020 CR Ribs w/ PA Chest Left [facility]: [id number] Diagnostic Radiology ACCESSION EXAM DATE/TIME PROCEDURE ORDERING PROVIDER [id number] 07/26/2021 14:45 EST CR Ribs w/ PA Chest Left [id number] -CODI KHAN CPT code 68865 Reason For Exam (CR Ribs w/ PA [...] Transcribed Date and Time: 07/26/2021 3:19 Normal [facility] ED [facility] Marcia Mascorro : 1955 Date of Evaluation: 07/26/2021 ED SINTIA Provider: BACILIO Bishop Chief Complaint Chief Complaint Patient presents with ? Fall ATMAUTLUAK I was wearing a KN95 mask for [...] drug use. Patient does smoke. Patient denies aggravating/alleviatin g factors. Patient denies CP, SOB, fevers, aches, chills, frequency, urgency, constipation or diarrhea. ROS: Review of Systems At least 10 systems reviewed and otherwise acutely negative except as in the AT[place]AK. Past History Past Medical History: Diagnosis Date [...] and Family: Not on file ? Attends [employer]: Not on file ? Active Member [...] of the skin. No Elkins sign. No Johnny sign. ABDOMEN: Soft. Non-tender. No guarding or [...] Radiology ACCESSION EXAM DATE/TIME PROCEDURE ORDERING PROVIDER [id number] 07/26/2021 14:45 EST CR Ribs w/ (more content not included)... Normal [facility] XR RIBS LEFT INCLUDE CHEST ( MIN 3 VIEWS)on 07-26-2021 Patient Name: MARCIA MASCORRO Diagnostic Radiology ACCESSION EXAM DATE/TIME PROCEDURE ORDERING PROVIDER [id number] 07/26/2021 14:45 EST CR Ribs w/ PA Chest Left [id number] -CODI KHAN CPT code 88833 Reason For Exam (CR Ribs w/ PA [...] Transcribed Date and Time: 07/26/2021 3:19 ED [facility] RAD Louis Herrera MD - 07/26/2021 Patient Name: [id number] Diagnostic Radiology ACCESSION EXAM DATE/TIME PROCEDURE ORDERING PROVIDER [id number] 07/26/2021 14:45 EST CR Ribs w/ PA Chest Left [id number] -CODI KHAN CPT code 25150 Reason For Exam (CR Ribs w/ PA [...] R Transcribed Date and Time: 07/26/2021 3:19 [facility] Work Phone: Radiology Study observation (narrative) [facility] Work Phone: XR RIBS LEFT INCLUDE CHEST ( MIN 3 VIEWS)Ordered By: Louis Herrera on 07-26-2021 [facility] Work Phone: Procalcitoninon 06-18-2021 Procalcitonin 0.07 ng/mL Normal 0.00-0.09 [facility] Comment on above: Performed By: #### B NP3, LACT3, CMP3, TROPN, PT, HEMOG #### [facility] [address] [place] [address] ProcalcitoninOrdered By: Keisah Hill on 06-18-2021 Interpretation See Below [facility] Work Phone: Comment on above: PCT <0.50 = Low risk of severe sepsis and/or septic shock. PCT >2.00 = High risk of severe sepsis and/or septic shock. Procalcitonin 0.07 ng/mL 0.00 - 0.09 ng/mL [facility] Work Phone: [phone] Test Performed by [facility], [address] [place] [id number] [facility] Work Phone: [phone] [facility] Work Phone: 1 APTTOrdered By: Jesus Hill on 06-17-2021 aPTT Coag (Bld) [Time] 29.3 s Normal 20.0-30.5 [facility] Work Phone: [phone] Comment on above: NOTE: The therapeuti c time for Heparin anticoagulation, based on Xa activity inhibition, is an APTT of 46-80 seconds. Result Comment: NOTE : The therapeutic time for Heparin anticoagulation, based on Xa activity inhibition, is an APTT of 46-80 seconds. Performed By: #### B NP3, LACT3, CMP3, TROPN, PT, HEMOG #### [facility] [address] [place] [address] C-Reactive Proteinon 021 CRP [Mass/Vol] 13.6 mg/L High 0.0-9.9 [facility] Comment on above: Result Comment: . Performed By: #### B NP3, LACT3, CMP3, TROPN, PT, HEMOG #### [facility] [address] [place] [address] C-Reactive ProteinOrdered By : Jesus Hill on 06-17-2021 CRP [Mass/Vol] 13.6 mg/L High 0.0 - 9.9 mg/L [facility] Work Phone: Comment on above: . CBC Auto DifferentialOrdered By: Jesus Hill on 06-17-2021 Absolute Baso # 0.1 10*3/uL 0.0 - 0.2 10*3/uL [facility] Work Phone: Absolute Neut # 5.1 10*3/uL 1.8 - 7.0 10*3/uL [facility] Work Phone: [phone] Basophils/100 WBC (Bld) 0.8 % 0.0 - 2.0 % [facility] Work Phone: [phone] Eosinophils (Bld) [#/Vol] 0.0 10*3/uL 0. 0 - 0.5 10*3/uL [facility] Work Phone: [phone] Eosinophils/100 WBC (Bld) 0.0 % Low 1. 0 - 6.0 % [facility] Work Phone: 222 Granulocytes/100 WBC (Bld) 79.0 % 4 0.0 - 80.0 % [facility] Work Phone: 222 Hematocrit (Bld) [Volume fraction] 38.4 % 35.0 - 47.0 % [facility] Work Phone: [phone] Hemoglobin.gastrointestinal spec 1 Ql (Stl) 12.7 g/dL 11.7 - 16.0 g/dL [facility] Work Phone: [phone] Interpretation and review of laboratory results Abnormal [employer] Work Phone: 222 Lymphocytes (Bld) [#/Vol] 0.9 10*3/uL Low 1. 0 - 4.3 10*3/uL [facility] Work Phone: 222 Lymphocytes/100 WBC (Bld) 14.2 % Low 20 .0 - 40.0 % [employer] Work Phone: 222 MCH (RBC) [Entitic mass] 31.0 pg 26. 0 - 34.0 pg [facility] Work Phone: 222 MCHC (RBC) [Mass/Vol] 33.0 % 32.0 - 36.0 % [facility] Work Phone: 222 MCV (RBC) [Entitic vol] 94.0 fL 79.0 - 98.0 fL [facility] Work Phone: 222 Monocytes (Bld) [#/Vol] 0.4 10*3/uL 0.0 - 0.8 10*3/uL [facility] Work Phone: ) [phone] Monocytes/100 WBC (Bld) 6.0 % 2.0 - 10.0 % [facility] Work Phone: 222 Platelet distribution width (Bld) [Ratio] 13.6 % 11.5 - 14.5 % [employer] Work Phone: [phone] Platelet mean volume (Bld) [Entitic vol] 8.7 fL 7.4 - 10.4 fL [employer] Work Phone: [phone] Platelets (Bld) [#/Vol] 302 10*3/uL 140 - 440 10*3/uL [employer] Work Phone: [phone] RBC (Bld) [#/Vol] 4.09 10*6/uL 3.80 - 5.20 10*6/uL [employer] Work Phone: [phone] WBC (Bld) [#/Vol] 6.5 10*3/uL 3.6 - 10.7 10*3/uL [employer] Work Phone: [phone] Test Performed by [facility] [employer], [address] [place] [address] [facility] Work Phone: [phone] [employer] Work Phone: [phone] Comp Panel with Mg Reflexon 06-17-2021 ALP [Catalytic activity/Vol] 136 U/L High 38-126 [facility] Comment on above: Performed By: #### B NP3, LACT3, CMP3, TROPN, PT, HEMOG #### [facility] [address] [place] [address] ALT [Catalytic activity/Vol] 27 U/L Normal 0-34 [facility] Comment on above: Result Comment: The ALT test is performed by an updated assay method. Please note that the reference intervals have been changed and are now sex specific. Performed By: #### B NP3, LACT3, CMP3, TROPN, PT, HEMOG #### [facility] [address] [place] [address] Anion gap [Moles/Vol] 2 mmol/L Low 3-13 [facility] Comment on above: Performed By: #### B NP3, LACT3, CMP3, TROPN, PT, HEMOG #### [facility] [employer] [facility] [address] [place] [address] AST [Catalytic activity/Vol] 39 U/L Normal 15-46 [facility] Comment on above: Performed By: #### B NP3, LACT3, CMP3, TROPN, PT, HEMOG #### [facility] [address] [place] [address] Bilirubin [Mass/Vol] 0.4 mg/dL Normal 0.2-1.3 [facility] Comment on above: Performed By: #### B NP3, LACT3, CMP3, TROPN, PT, HEMOG #### [facility] [address] [place] [address] Calcium [Mass/Vol] 9.0 mg/dL Normal 8.4-10.4 [facility] Comment on above: Performed By: #### B NP3, LACT3, CMP3, TROPN, PT, HEMOG #### [facility] [address] [place] [address] CO2 [Moles/Vol] 26 mmol/L Normal 22-30 [facility] Comment on above: Performed By: #### B NP3, LACT3, CMP3, TROPN, PT, HEMOG #### [facility] [address] [place] [address] Glucose [Mass/Vol] 155 mg/dL High 70-100 [facility] Comment on above: Performed By: #### B NP3, LACT3, CMP3, TROPN, PT, HEMOG #### [facility] [address] [place] [address] Protein [Mass/Vol] 6.2 g/dL Low 6.3-8.2 [facility] Comment on above: Performed By: #### B NP3, LACT3, CMP3, TROPN, PT, HEMOG #### [facility] [address] [place] [address] Urea nitrogen [Mass/Vol] 20 mg/dL Normal 9-20 [facility] Comment on above: Performed By: #### B NP3, LACT3, CMP3, TROPN, PT, HEMOG #### [facility] [address] [place] [address] Creatinine [Mass/Vol] 0.64 mg/dL Normal 0.52-1.25 [facility] Comment on above: Performed By: #### B NP3, LACT3, CMP3, TROPN, PT, HEMOG #### [facility] [address] [place] [address] eGFR OTHER > 90.0 Normal >60 [facility] Comment on above: Result Comment: KDIG O [...] NP3, LACT3, CMP3, TROPN, PT, HEMOG #### [facility] [address] [place] [address] GFR/1.73 sq M.predicted among blacks MDRD (S/P/Bld) [Vol rate/Area] mL/min/{1.73_m2} Normal >60 [facility] Comment on above: Performed By: #### B NP3, LACT3, CMP3, TROPN, PT, HEMOG #### [facility] [address] [place] [address] Potassium [Moles/Vol] 4.1 mmol/L Normal 3.5-5.1 [facility] Comment on above: Performed By: #### B NP3, LACT3, CMP3, TROPN, PT, HEMOG #### [facility] [address] [place] [address] Albumin [Mass/Vol] 3.0 g/dL Low 3.5-5.0 [facility] Comment on above: Performed By: #### B NP3, LACT3, CMP3, TROPN, PT, HEMOG #### [facility] [address] [place] [address] Chloride [Moles/Vol] 107 mmol/L Normal 98-107 [facility] Comment on above: Performed By: #### B NP3, LACT3, CMP3, TROPN, PT, HEMOG #### [facility] [address] [place] [address] Sodium [Moles/Vol] 135 mmol/L Normal 135-145 [facility] Comment on above: Performed By: #### B NP3, LACT3, CMP3, TROPN, PT, HEMOG #### [facility] [address] [place] [address] Comprehensive Metabolic Pane l w/ Reflex to MGOrdered By: Jesus Hill on 06-17-2021 Albumin [Mass/Vol] 3.0 g/dL Low 3.5 - 5.0 g/dL [facility] Work Phone: [phone] ALP (Bld) [Catalytic activity/Vol] 136 U/L High 38 - 126 U/L [facility] Work Phone: [phone] ALT [Catalytic activity/Vol] 27 U/L 0 - 34 U/L [facility] Work Phone: [phone] Comment on above: The ALT test is perf ormed by an updated assay method. Please note that the reference intervals have been changed and are now sex specific. Anion gap [Moles/Vol] 2 mmol/L Low 3 - 13 mmol/L [facility] Work Phone: [phone] AST [Catalytic activity/Vol] 39 U/L 15 - 46 U/L [facility] Work Phone: [phone] Bilirubin [Mass/Vol] 0.4 mg/dL 0.2 - 1 .3 mg/dL [facility] Work Phone: [phone] Calcium [Mass/Vol] 9.0 mg/dL 8.4 - 10. 4 mg/dL [facility] Work Phone: [phone] Chloride [Moles/Vol] 107 mmol/L 98 - 10 7 mmol/L [facility] Work Phone: [phone] CO2 [Moles/Vol] 26 mmol/L 22 - 30 mmol/L [facility] Work Phone: [phone] Creatinine [Mass/Vol] 0.64 mg/dL 0.52 - 1.25 mg/dL [employer] Work Phone: EGFR IF NonAfrican Bermudian >90.0 >60 mL/m in [employer] Work Phone: Comment on above: KDIGO guidelines [...] 6.2 g/dL Low 6.3 - 8.2 g/dL [facility] Phone: GFR/1.73 sq M.predicted among blacks MDRD (S/P/Bld) [Vol rate/Area] mL/min/{1.73_m2} >60 mL/min [facility] Phone: Glucose [Mass/Vol] 155 mg/dL High 70 - 100 mg/dL [facility] Phone: Potassium [Moles/Vol] 4.1 mmol/L 3.5 - 5.1 mmol/L [employer] Work Phone: Sodium [Moles/Vol] 135 mmol/L 135 - 145 mmol/L [facility] Phone: Urea nitrogen (BldV) [Mass/Vol] 20 mg/dL 9 - 20 mg/dL [employer] Phone: [phone] D-Dimer, Innovanceon 10-11-2 021 D-Dimer, Innovance 0.83 mg/L High <0.19-0.50 [facility] Comment on above: Result Comment: Inno summers D-Dimer values of <0.50 mg/L FEU can be used in combination with a pre-test probability model (e.g. Well's) to exclude pulmonary embolism (PE) disease, as well as an aid in the diagnosis of deep vein thrombosis (DVT). Performed By: #### B NP3, LACT3, CMP3, TROPN, PT, HEMOG #### [facility] [address] [place] [address] D-Dimer, QuantitativeOrdered By: [facility] on 06-17-2021 D-Dimer, Quant 0.83 mg/L High <0.19 - 0.50 [facility] Work Phone: Comment on above: Innov[employer] D-Dimer va lues of <0.50 mg/L FEU can be used in combination with a pre-test probability model (e.g. Well's) to exclude pulmonary embolism (PE) disease, as well as an aid in the diagnosis of deep vein thrombosis (DVT). Interpretation and review of laboratory results Abnormal [facility] Work Phone: Fibrinogenon 06-17-2021 Fibrinogen 344 mg/dL Normal 200-400 [facility] [employer] Comment on above: Performed By: #### B NP3, LACT3, CMP3, TROPN, PT, HEMOG #### [facility] [address] [place] [address] FibrinogenOrdered By: [facility] on 06-17-2021 Fibrinogen 344 mg/dL 200 - 400 mg/dL [employer] Work Phone: Test Performed by [facility], [address] [place] [address] [employer] Work Phone: [employer] Work Phone: Hemogram w/ Autodiffon 06-17 Abs Baso Cnt 0.1 10*3/uL Normal 0.0-0.2 [facility] Comment on above: Performed By: #### B NP3, LACT3, CMP3, TROPN, PT, HEMOG #### [facility] [address] [place] [address] Abs Neutrophile Cnt 5.1 10*3/uL Normal 1.8-7.0 [facility] Comment on above: Performed By: #### B NP3, LACT3, CMP3, TROPN, PT, HEMOG #### [facility] [address] [place] [address] Basophils/100 WBC (Bld) 0.8 % Normal 0.0-2.0 S [facility] Comment on above: Performed By: #### B NP3, LACT3, CMP3, TROPN, PT, HEMOG #### [facility] [address] [place] [address] Eosinophils (Bld) [#/Vol] 0.0 10*3/uL Normal 0.0-0.5 [facility] Comment on above: Performed By: #### B NP3, LACT3, CMP3, TROPN, PT, HEMOG #### [facility] [address] [place] [address] Eosinophils/100 WBC (Bld) 0.0 % Low 1.0-6.0 [facility] Comment on above: Performed By: #### B NP3, LACT3, CMP3, TROPN, PT, HEMOG #### [facility] [address] [place] [address] Erythrocyte distribution width (RBC) [Ratio] 13.6 % Normal 11.5-14.5 [facility] Comment on above: Performed By: #### B NP3, LACT3, CMP3, TROPN, PT, HEMOG #### [facility] [address] [place] [address] Granulocytes/100 WBC (Bld) 79.0 % Normal 40.0-80.0 [facility] Comment on above: Performed By: #### B NP3, LACT3, CMP3, TROPN, PT, HEMOG #### [facility] [address] [place] [address] Hematocrit (Bld) [Volume fraction] 38.4 % Normal 35.0-47.0 [facility] Comment on above: Performed By: #### B NP3, LACT3, CMP3, TROPN, PT, HEMOG #### [facility] [address] [place] [address] Hemoglobin (Bld) [Mass/Vol] 12.7 g/dL Normal 11.7-16. 0 [facility] Comment on above: Performed By: #### B NP3, LACT3, CMP3, TROPN, PT, HEMOG #### [facility] [address] [place] [address] Lymphocytes (Bld) [#/Vol] 0.9 10*3/uL Low 1.0-4.3 [facility] Comment on above: Performed By: #### B NP3, LACT3, CMP3, TROPN, PT, HEMOG #### [facility] [address] [place] [address] Lymphocytes/100 WBC (Bld) 14.2 % Low 20.0-40.0 [facility] Comment on above: Performed By: #### B NP3, LACT3, CMP3, TROPN, PT, HEMOG #### [facility] [address] [place] [address] MCH (RBC) [Entitic mass] 31.0 pg Normal 26.0-34.0 [facility] Comment on above: Performed By: #### B NP3, LACT3, CMP3, TROPN, PT, HEMOG #### [facility] [address] [place] [address] MCHC 33.0 % Normal 32.0-36.0 [facility] Comment on above: Performed By: #### B NP3, LACT3, CMP3, TROPN, PT, HEMOG #### [facility] [address] [place] [address] MCV (RBC) [Entitic vol] 94.0 fL Normal 79.0-98.0 S [facility] Comment on above: Performed By: #### B NP3, LACT3, CMP3, TROPN, PT, HEMOG #### [facility] [address] [place] [address] Monocytes (Bld) [#/Vol] 0.4 10*3/uL Normal 0.0-0.8 [facility] [facility] Comment on above: Performed By: #### B NP3, LACT3, CMP3, TROPN, PT, HEMOG #### [facility] [address] [place] [address] Monocytes/100 WBC (Bld) 6.0 % Normal 2.0-10.0 S [facility] Comment on above: Performed By: #### B NP3, LACT3, CMP3, TROPN, PT, HEMOG #### [facility] [address] [place] [address] Platelet mean volume (Bld) [Entitic vol] 8.7 fL Normal 7.4-10.4 [facility] Comment on above: Performed By: #### B NP3, LACT3, CMP3, TROPN, PT, HEMOG #### [facility] [address] [place] [address] Platelets (Bld) [#/Vol] 302 10*3/uL Normal 140-440 [facility] Comment on above: Performed By: #### B NP3, LACT3, CMP3, TROPN, PT, HEMOG #### [facility] [address] [place] [address] RBC (Bld) [#/Vol] 4.09 10*6/uL Normal 3.80-5.20 [facility] Comment on above: Performed By: #### B NP3, LACT3, CMP3, TROPN, PT, HEMOG #### [facility] [address] [place] [address] WBC (Bld) [#/Vol] 6.5 10*3/uL Normal 3.6-10.7 [facility] Comment on above: Performed By: #### B NP3, LACT3, CMP3, TROPN, PT, HEMOG #### [facility] [address] [place] [address] Lactic Acidon 06-17-2021 Lactate [Moles/Vol] 1.3 mmol/L Normal 0.7-2.0 [facility] Comment on above: Performed By: #### B NP3, LACT3, CMP3, TROPN, PT, HEMOG #### [facility] [address] [place] [address] Lactic Acid, PlasmaOrdered B y: Jesus Liz on 10-11-2021 Lactate [Moles/Vol] 1.3 mmol/L 0.7 - 2. 0 mmol/L [employer] Work Phone: [phone] Test Performed by [facility], [address] [place] [address] [facility] Work Phone: [phone] [facility] Work Phone: [phone] No Panel InformationOrdered By: Jesus Hill on 06-17-2021 Test Performed by [facility], [address] [place] [address] [facility] Work Phone: [employer] Work Phone: [phone] Interpretation and review of laboratory results Abnormal [facility] Work Phone: [phone] Test Performed by [facility], [address] [place] [id number] [place], [place] [address]A Work Phone: [phone] [employer] Work Phone: [phone] Procalcitoninon 06-17-2021 Interpretation See Below Normal [facility] [employer] [facility] Comment on above: Result Comment: PCT <0.50 = Low risk of severe sepsis and/or septic shock. PCT >2.00 = High risk of severe sepsis and/or septic shock. Performed By: #### B NP3, LACT3, CMP3, TROPN, PT, HEMOG #### [facility] [address] [place] [address] Prothrombin Timeon INR 1.0 Normal 0.9-1.1 [facility] Comment on above: Result Comment: Lul mmended [...] NP3, LACT3, CMP3, TROPN, PT, HEMOG #### [facility] [employer] [facility] [address] [place] [address] Prothrombin TimeOrdered By: Jesus Hill on 06-17-2021 PT Coag (PPP) [Time] 11.1 s Normal 9.0-12.0 [facility] Work Phone: Comment on above: . Result Comment: . Performed By: #### B NP3, LACT3, CMP3, TROPN, PT, HEMOG #### [facility] [employer] [facility] [address] [place] [address] Protime-INROrdered By: Ruben Hill on 06-17-2021 INR Coag (Bld) [Relative time] 1.0 {INR} [facility] Work Phone: Comment on above: Recommended [...] Interpretation and review of laboratory results Abnormal [facility] Work Phone: Troponin I.cardiac [Mass/Vol] 0.192 ng/mL High 0.000 - 0.034 ng/mL [facility] Work Phone: Comment on above: . Test Performed by [employer], [address] [place], [place], [place] [id number] [place] [address] Work Phone: [facility] Work Phone: TroponinOrdered By: Jesus moore on 06-17-2021 Troponin I.cardiac [Mass/Vol] 0.250 ng/mL High 0.000 - 0.034 ng/mL [facility] Work Phone: Comment on above: . Troponin Ion 06-17-2021 Troponin I.cardiac [Mass/Vol] 0.192 ng/mL High 0.000-0.03 4 [facility] [employer] [facility] Comment on above: Result Comment: . Performed By: #### B NP3, LACT3, CMP3, TROPN, PT, HEMOG #### [facility] [address] [place] [address] Troponin I.cardiac [Mass/Vol] 0.250 ng/mL High 0.000-0.03 4 [facility] Comment on above: Result Comment: . Performed By: #### B NP3, LACT3, CMP3, TROPN, PT, HEMOG #### [facility] [address] [place] [address] Vit D 25-OH, Totalon 021 Vit D 25-OH, Total < 13 Low 30-100 [facility] Comment on above: Result Comment: Ther apy is based on measurement of Total 25-OHD with the following classification levels: Less than 20 ng/mL: Indicative of Vit D deficiency 20-30 ng/mL: Suggests Vit D insufficiency Optimal: Greater than or equal to 30 ng/mL Test performed by [employer] Competitive Immunoassay, measuring Total Vitamin D, not individual fractions. Performed By: #### B NP3, LACT3, CMP3, TROPN, PT, HEMOG #### [facility] [address] [place] [address] Vitamin D 25 HydroxyOrdered By: Jesus Hill on 06-17-2021 Interpretation and review of laboratory results Abnormal [facility] Work Phone: Vit D, 25-Hydroxy <13 Low 30 - 100 ng/mL [facility] Work Phone: Comment on above: Therapy is based on measurement of Total 25-OHD with the following classification levels: Less than 20 ng/mL: Indicative of Vit D deficiency 20-30 ng/mL: Suggests Vit D insufficiency Optimal: Greater than or equal to 30 ng/mL Test performed by [employer] Competitive Immunoassay, measuring Total Vitamin D, not individual fractions. Test Performed by [facility] [employer] [facility], [address] [place] [address] [facility] Work Phone: [facility] Work Phone: C-Reactive Proteinon 021 CRP [Mass/Vol] 21.0 mg/L High 0.0-9.9 [facility] Comment on above: Result Comment: . Performed By: #### B NP3, LACT3, CMP3, TROPN, PT, HEMOG #### [facility] [address] [place] [address] C-Reactive ProteinOrdered By : [facility] on 06-16-2021 CRP [Mass/Vol] 21 mg/L High 0.0 - 9.9 mg/L [facility] Work Phone: Comment on above: . D-Dimer, Innovanceon 021 D-Dimer, Innovance 0.69 mg/L High <0.19-0.50 [facility] Comment on above: Result Comment: Inno summers D-Dimer values of <0.50 mg/L FEU can be used in combination with a pre-test probability model (e.g. Well's) to exclude pulmonary embolism (PE) disease, as well as an aid in the diagnosis of deep vein thrombosis (DVT). Performed By: #### B NP3, LACT3, CMP3, TROPN, PT, HEMOG #### [facility] [address] [place] [address] D-Dimer, QuantitativeOrdered By: [facility] on 06-16-2021 D-Dimer, Quant 0.69 mg/L High <0.19 - 0.50 [facility] Work Phone: Comment on above: [employer] D-Dimer va lues of <0.50 mg/L FEU can be used in combination with a pre-test probability model (e.g. Well's) to exclude pulmonary embolism (PE) disease, as well as an aid in the diagnosis of deep vein thrombosis (DVT). Interpretation and review of laboratory results Abnormal [facility] Work Phone: Test Performed by [facility], [address] [place], [place] [address] [facility] Work Phone: [facility] Work Phone: EKG 12 LeadOrdered By: Jordana Burnham on 06-16-2021 [facility] Test Date: 2021-06-15 Pat Name: ALESSIO MASCORRO Department: 01 Room: [facility] Gender: F Sat Instructor: JEM : 1955 Requested By: PAIGE BURNHAM Order Number: [id number] Reading MD: Rodney Silver Measurements Intervals [place] Rate: 101 P: 59 MN: 128 QRS: 47 QRSD: 100 T: 150 QT: 352 QTc: 457 Interpretive Statements SINUS TACHYCARDIA MULTIPLE PREMATURE COMPLEXES, VENT & SUPRAVEN PROBABLE ANTEROSEPTAL INFARCT, OLD NONSPECIFIC T ABNORMALITIES, ANT-LAT LEADS Compared to ECG 06/15/2021 20:01:05 Supraventricular tachycardia no longer present Myocardial infarct finding still present T-wave abnormality still present Electronically Signed On 06-16-2021 8:15:31 EDT by Rodney Jane [employer] Work Phone: [place], [facility] Incoming Cardiology [facility] - 06/16/2021 8:16 AM EDT [employer] Test Date: 2021-06-15 Pat Name: ALESSIO CENTER Department: 01 Room: 457 Gender: F Sat Instructor: JEM : 1955 Requested By: PAIGE BURNHAM Order Number: [id number] Reading MD: Rodney Silver Measurements Intervals [place] Rate: 101 P: 59 MN: 128 QRS: 47 QRSD: 100 T: 150 QT: 352 QTc: 457 Interpretive Statements SINUS TACHYCARDIA MULTIPLE PREMATURE COMPLEXES, VENT & SUPRAVEN PROBABLE ANTEROSEPTAL INFARCT, OLD NONSPECIFIC T ABNORMALITIES, ANT-LAT LEADS Compared to ECG 06/15/2021 20:01:05 Supraventricular tachycardia no longer present Myocardial infarct finding still present T-wave abnormality still present Electronically Signed On 06-16-2021 8:15:31 EDT by Rodney Jane [employer] Work Phone: [employer] Work Phone: [employer] Test Date: 2021-06-15 Pat Name: ALESSIO CENTER Department: 01 Room: 457 Gender: F Sat Instructor: JEM : 1955 Requested By: PAIGE BURNHAM Order Number: [id number] Reading MD: Rodney Silver Measurements Intervals [place] Rate: 163 P: -3 MN: 124 QRS: 52 QRSD: 96 T: 177 QT: 292 QTc: 481 Interpretive Statements SUPRAVENTRICULAR TACHYCARDIA NONSPECIFIC T ABNORMALITIES, LATERAL LEADS Compared to ECG 06/14/2021 10:29:02 Myocardial infarct finding now present Sinus tachycardia no longer present Atrial premature complex(es) no longer present T-wave abnormality still present Electronically Signed On 06-16-2021 8:15:14 EDT by Rodney Jane [employer] Work Phone: [place], [facility] Incoming Cardiology Results From [facility] - 06/16/2021 8:16 AM EDT [employer] Test Date: 2021-06-15 Pat Name: ALESSIO MASCORRO Department: 01 Room: [facility] Gender: F Sat Instructor: JEM : 1955 Requested By: PAIGE BURNHAM Order Number: [id number] Reading MD: Rodney Jane Measurements Intervals [place] Rate: 163 P: -3 MN: 124 QRS: 52 QRSD: 96 T: 177 QT: 292 QTc: 481 Interpretive Statements SUPRAVENTRICULAR TACHYCARDIA NONSPECIFIC T ABNORMALITIES, LATERAL LEADS Compared to ECG 06/14/2021 10:29:02 Myocardial infarct finding now present Sinus tachycardia no longer present Atrial premature complex(es) no longer present T-wave abnormality still present Electronically Signed On 06-16-2021 8:15:14 EDT by Rodney Jane [employer] Work Phone: [employer] Work Phone: Ferritinon 06-16-2021 Ferritin [Mass/Vol] 204 ng/mL Normal 11-264 [employer] Comment on above: Performed By: #### B NP3, LACT3, CMP3, TROPN, PT, HEMOG #### [facility] [employer] [address] [place] [address] FerritinOrdered By: Jesus N epal on 06-16-2021 Ferritin [Mass/Vol] 204 ng/mL 11 - 264 ng/mL [employer] Work Phone: Test Performed by [employer], [address], [place], [place] [address] [employer] Work Phone: [employer] Work Phone: LDHon 06-16-2021 LDH 313 U/L High 120-246 [employer] Comment on above: Performed By: #### B NP3, LACT3, CMP3, TROPN, PT, HEMOG #### [facility] [address] [place] [address] Lactate DehydrogenaseOrdered By: Jesus Hill on 06-16-2021 LD 313 U/L High 120 - 246 U/L [facility] Work Phone: No Panel InformationOrdered By: Jesusnaseem Hill on 06-16-2021 Interpretation and review of laboratory results Abnormal [facility] Work Phone: [phone] Test Performed by [facility], [address] [place] [address] [facility] Work Phone: [phone] [facility] Work Phone: [phone] Procalcitoninon 06-16-2021 Procalcitonin 0.24 ng/mL High 0.00-0.09 [facility] Comment on above: Performed By: #### B NP3, LACT3, CMP3, TROPN, PT, HEMOG #### [facility] [address] [place] [address] Interpretation See Below Normal [facility] Comment on above: Result Comment: PCT <0.50 = Low risk of severe sepsis and/or septic shock. PCT >2.00 = High risk of severe sepsis and/or septic shock. Performed By: #### B NP3, LACT3, CMP3, TROPN, PT, HEMOG #### [facility] [address] [place] [address] ProcalcitoninOrdered By: Keisha Hill on 06-16-2021 Interpretation See Below [facility] Work Phone: Comment on above: PCT <0.50 = Low risk of severe sepsis and/or septic shock. PCT >2.00 = High risk of severe sepsis and/or septic shock. Interpretation and review of laboratory results Abnormal [facility] Work Phone: [phone] Procalcitonin 0.24 ng/mL High 0.00 - 0.09 ng/mL [facility] Work Phone: [phone] Test Performed by [facility], [address] [place] [address] [facility] Work Phone: [phone] [facility] Work Phone: Brain Natriuretic PeptideOrd ered By: Paige Burnham on 06-15-2021 Interpretation and review of laboratory results Abnormal [facility] Work Phone: Natriuretic peptide B (Bld) [Mass/Vol] 4790 pg/mL High 0 - 125 pg/mL [facility] Work Phone: CR Chest Portableon 06-15-20 21 CR Chest Portable Patient [facility]: [id number] Diagnostic Radiology ACCESSION EXAM DATE/TIME PROCEDURE ORDERING PROVIDER [id number] 06/15/2021 20:35 EDT CR Chest Portable [id number] LESTER CPT code 93132 Reason For Exam (CR Chest Portable) Dyspnea [...] Transcribed Date and Time: 06/15/2021 9:06 Normal [facility] CTA CHEST W WO CONTRASTOrder ed By: Paige Burnham on 06-15-2021 Patient Name: [facility] [id number] Computed Tomography ACCESSION EXAM DATE/TIME PROCEDURE ORDERING PROVIDER [id number] 06/15/2021 21:15 EDT CTA Chest w/ + w/o Lesly MOREJON CPT code 52189 Q9967 Reason For Exam (CTA Chest w/ [...] and Time: 06/15/2021 9:24 [facility] Work Phone: [place], [facility] Incoming Radiology Results From [facility] - 06/15/2021 9:24 PM EDT Patient Name: [facility] [id number] Computed Tomography ACCESSION EXAM DATE/TIME PROCEDURE ORDERING PROVIDER [id number] 06/15/2021 21:15 EDT CTA Chest w/ + w/o [id number] Lesly NOLAND CPT code 82189 Q9967 Reason For Exam (CTA Chest w/ [...] R Transcribed Date and Time: 06/15/2021 9:24 [facility] Work Phone: [facility] Work Phone: CTA Chest w/ + w/o Contrasto n 06-15-2021 CTA Chest w/ + w/o Contrast Patient Name : [facility] [id number] Computed Tomography ACCESSION EXAM DATE/TIME PROCEDURE ORDERING PROVIDER [id number] 06/15/2021 21:15 EDT CTA Chest w/ + w/o [id number] Lesly NOLAND PAIGE CPT code 05436 Q9967 Reason For Exam (CTA Chest w/ [...] Transcribed Date and Time: 06/15/2021 9:24 Normal [facility] Comp Metabolic Panelon 06-15 Calcium [Mass/Vol] 9.0 mg/dL Normal 8.4-10.4 [facility] Comment on above: Performed By: #### B NP3, LACT3, CMP3, TROPN, PT, HEMOG #### [facility] [address] [place] [address] ALP [Catalytic activity/Vol] 168 U/L High 38-126 [facility] Comment on above: Performed By: #### B NP3, LACT3, CMP3, TROPN, PT, HEMOG #### [facility] [address] [place] [address] ALT [Catalytic activity/Vol] 32 U/L Normal 0-34 [facility] Comment on above: Result Comment: The ALT test is performed by an updated assay method. Please note that the reference intervals have been changed and are now sex specific. Performed By: #### B NP3, LACT3, CMP3, TROPN, PT, HEMOG #### [facility] [address] [place] [address] Anion gap [Moles/Vol] 6 mmol/L Normal 3-13 [facility] Comment on above: Performed By: #### B NP3, LACT3, CMP3, TROPN, PT, HEMOG #### [facility] [address] [place] [address] AST [Catalytic activity/Vol] 86 U/L High 15-46 [facility] Comment on above: Performed By: #### B NP3, LACT3, CMP3, TROPN, PT, HEMOG #### [facility] [address] [place] [address] Bilirubin [Mass/Vol] 0.2 mg/dL Normal 0.2-1.3 [facility] Comment on above: Performed By: #### B NP3, LACT3, CMP3, TROPN, PT, HEMOG #### [facility] [address] [place] [address] CO2 [Moles/Vol] 29 mmol/L Normal 22-30 [facility] Comment on above: Performed By: #### B NP3, LACT3, CMP3, TROPN, PT, HEMOG #### [facility] [address] [place] [address] Creatinine [Mass/Vol] 0.67 mg/dL Normal 0.52-1.25 [facility] Comment on above: Performed By: #### B NP3, LACT3, CMP3, TROPN, PT, HEMOG #### [facility] [address] [place] [address] eGFR OTHER > 90.0 Normal >60 [facility] Comment on above: Result Comment: KDIG O [...] NP3, LACT3, CMP3, TROPN, PT, HEMOG #### [facility] [address] [place] [address] GFR/1.73 sq M.predicted among blacks MDRD (S/P/Bld) [Vol rate/Area] mL/min/{1.73_m2} Normal >60 [facility] Comment on above: Performed By: #### B NP3, LACT3, CMP3, TROPN, PT, HEMOG #### [facility] [address] [place] [address] Glucose [Mass/Vol] 135 mg/dL High 70-100 [facility] Comment on above: Performed By: #### B NP3, LACT3, CMP3, TROPN, PT, HEMOG #### [facility] [address] [place] [address] Protein [Mass/Vol] 6.9 g/dL Normal 6.3-8.2 [facility] Comment on above: Performed By: #### B NP3, LACT3, CMP3, TROPN, PT, HEMOG #### [facility] [address] [place] [address] Urea nitrogen [Mass/Vol] 19 mg/dL Normal 9-20 [facility] Comment on above: Performed By: #### B NP3, LACT3, CMP3, TROPN, PT, HEMOG #### [facility] [address] [place] [address] Potassium [Moles/Vol] 4.0 mmol/L Normal 3.5-5.1 [facility] Comment on above: Performed By: #### B NP3, LACT3, CMP3, TROPN, PT, HEMOG #### [facility] [address] [place] [address] Albumin [Mass/Vol] 3.6 g/dL Normal 3.5-5.0 [facility] Comment on above: Performed By: #### B NP3, LACT3, CMP3, TROPN, PT, HEMOG #### [facility] [address] [place] [address] Chloride [Moles/Vol] 106 mmol/L Normal 98-107 [facility] Comment on above: Performed By: #### B NP3, LACT3, CMP3, TROPN, PT, HEMOG #### [facility] [address] [place] [address] Sodium [Moles/Vol] 141 mmol/L Normal 135-145 [facility] Comment on above: Performed By: #### B NP3, LACT3, CMP3, TROPN, PT, HEMOG #### [facility] [address] [place] [address] Comprehensive Metabolic Pane lOrdered By: Paige Burnham on 06-15-2021 Albumin [Mass/Vol] 3.6 g/dL 3.5 - 5.0 g/dL [facility] Work Phone: ALP (Bld) [Catalytic activity/Vol] 168 U/L High 38 - 126 U/L [facility] Work Phone: ALT [Catalytic activity/Vol] 32 U/L 0 - 34 U/L [facility] Work Phone: Comment on above: The ALT test is perf ormed by an updated assay method. Please note that the reference intervals have been changed and are now sex specific. Anion gap [Moles/Vol] 6 mmol/L 3 - 13 mmol/L [facility] Work Phone: AST [Catalytic activity/Vol] 86 U/L High 15 - 46 U/L [facility] Work Phone: Bilirubin [Mass/Vol] 0.2 mg/dL 0.2 - 1 .3 mg/dL [facility] Work Phone: Calcium [Mass/Vol] 9.0 mg/dL 8.4 - 10. 4 mg/dL [facility] Work Phone: [phone] Chloride [Moles/Vol] 106 mmol/L 98 - 10 7 mmol/L [facility] Work Phone: [phone] CO2 [Moles/Vol] 29 mmol/L 22 - 30 mmol/L [facility] Work Phone: Creatinine [Mass/Vol] 0.67 mg/dL 0.52 - 1.25 mg/dL [facility] Work Phone: EGFR IF NonAfrican Bermudian >90.0 >60 mL/m in [facility] Work Phone: Comment on above: KDIGO guidelines [...] fraction] 6.9 g/dL 6.3 - 8.2 g/dL [facility] Work Phone: [phone] GFR/1.73 sq M.predicted among blacks MDRD (S/P/Bld) [Vol rate/Area] mL/min/{1.73_m2} >60 mL/min [facility] Work Phone: Glucose [Mass/Vol] 135 mg/dL High 70 - 100 mg/dL [employer] Work Phone: [phone] Interpretation and review of laboratory results Abnormal [employer] Work Phone: [phone] Potassium [Moles/Vol] 4.0 mmol/L 3.5 - 5.1 mmol/L [employer] Work Phone: [phone] Sodium [Moles/Vol] 141 mmol/L 135 - 145 mmol/L [employer] Work Phone: [phone] Urea nitrogen (BldV) [Mass/Vol] 19 mg/dL 9 - 20 mg/dL [employer] Work Phone: [phone] Test Performed by [employer], [address] [place] [address]. [place], [place] [address] [employer] Work Phone: [phone] [employer] Work Phone: ED Provider Noteon ED Provider Note [facility] EM[facility]GENCY DEPARTMENT ENCOUNTER Pt Name: Alessio Mascorro Birthdate 1955 Date of evaluation: 06/15/2021 Provider: Paige Burnham, DO CHIEF COMPLAINT Chief Complaint Patient presents with ? Tachycardia HISTORY OF PRESENT ILLNESS (Location/Symptom, Timing/Onset, Context/Setting, Quality, Duration, Modifying Factors, Severity) Note limiting factors. I wore a procedure mask for the entirety of this encounter. Does this patient come from an ECF, SNF, Rehab, Jail or other Congregate setting: No HPI Alessio [...] Gatherings with Friends and Family: ? Attends [employer] Services: ? Active Member of Clubs or [...] dry. NEUROLO (more content not included)... Normal [facility] Hemogramon 06-15-2021 Erythrocyte distribution width (RBC) [Ratio] 13.8 % Normal 11.5-14.5 [facility] Comment on above: Performed By: #### B NP3, LACT3, CMP3, TROPN, PT, HEMOG #### [facility] [address] [place] [address] Hematocrit (Bld) [Volume fraction] 41.8 % Normal 35.0-47.0 [facility] Comment on above: Performed By: #### B NP3, LACT3, CMP3, TROPN, PT, HEMOG #### [facility] [address] [place] [address] Hemoglobin (Bld) [Mass/Vol] 13.9 g/dL Normal 11.7-16. 0 [facility] Comment on above: Performed By: #### B NP3, LACT3, CMP3, TROPN, PT, HEMOG #### [facility] [address] [place] [address] MCH (RBC) [Entitic mass] 31.0 pg Normal 26.0-34.0 [facility] Comment on above: Performed By: #### B NP3, LACT3, CMP3, TROPN, PT, HEMOG #### [facility] [address] [place] [address] MCHC 33.2 % Normal 32.0-36.0 [facility] Comment on above: Performed By: #### B NP3, LACT3, CMP3, TROPN, PT, HEMOG #### [facility] [address] [place] [address] MCV (RBC) [Entitic vol] 93.4 fL Normal 79.0-98.0 [facility] Comment on above: Performed By: #### B NP3, LACT3, CMP3, TROPN, PT, HEMOG #### [facility] [address] [place] [address] Platelet mean volume (Bld) [Entitic vol] 8.7 fL Normal 7.4-10.4 [facility] Comment on above: Performed By: #### B NP3, LACT3, CMP3, TROPN, PT, HEMOG #### [facility] [address] [place] [address] Platelets (Bld) [#/Vol] 257 10*3/uL Normal 140-440 [facility] Comment on above: Performed By: #### B NP3, LACT3, CMP3, TROPN, PT, HEMOG #### [facility] [address] [place] [address] RBC (Bld) [#/Vol] 4.47 10*6/uL Normal 3.80-5.20 [facility] Comment on above: Performed By: #### B NP3, LACT3, CMP3, TROPN, PT, HEMOG #### [facility] [address] [place] [address] WBC (Bld) [#/Vol] 7.0 10*3/uL Normal 3.6-10.7 [facility] Comment on above: Performed By: #### B NP3, LACT3, CMP3, TROPN, PT, HEMOG #### [facility] [address] [place] [address] Hemogram (CBC)Ordered By: Alfred Burnham on 06-15-2021 Hematocrit (Bld) [Volume fraction] 41.8 % 35.0 - 47.0 % [facility] Work Phone: [phone] Hemoglobin.gastrointestinal spec 1 Ql (Stl) 13.9 g/dL 11.7 - 16.0 g/dL [facility] Work Phone: [phone] MCH (RBC) [Entitic mass] 31.0 pg 26. 0 - 34.0 pg [facility] Work Phone: [phone] MCHC (RBC) [Mass/Vol] 33.2 % 32.0 - 36.0 % [facility] Work Phone: [phone] MCV (RBC) [Entitic vol] 93.4 fL 79.0 - 98.0 fL [facility] Work Phone: [phone] Platelet distribution width (Bld) [Ratio] 13.8 % 11.5 - 14.5 % [facility] Work Phone: [phone] Platelet mean volume (Bld) [Entitic vol] 8.7 fL 7.4 - 10.4 fL [facility] Work Phone: [phone] Platelets (Bld) [#/Vol] 257 10*3/uL 140 - 440 10*3/uL [facility] Work Phone: [phone] RBC (Bld) [#/Vol] 4.47 10*6/uL 3.80 - 5.20 10*6/uL [facility] Work Phone: [phone] WBC (Bld) [#/Vol] 7.0 10*3/uL 3.6 - 10.7 10*3/uL [facility] Work Phone: [phone] Test Performed by [facility] [employer], [address] [place], [place] [address] [facility] Work Phone: [phone] [facility] Work Phone: [phone] LEGIONELLA AG, URINEon 06-15 LEGIONELLA AG, URINE Not detected Normal [facility] Comment on above: Performed By: #### B NP3, LACT3, CMP3, TROPN, PT, HEMOG #### [facility] [address] [place] [address] Lactic Acidon 06-15-2021 Lactate [Moles/Vol] 1.1 mmol/L Normal 0.7-2.0 [facility] Comment on above: Performed By: #### B NP3, LACT3, CMP3, TROPN, PT, HEMOG #### [employer] [facility] [address] [place] [address] Lactic Acid, PlasmaOrdered B y: Paige Burnham on 06-15-2021 Lactate [Moles/Vol] 1.1 mmol/L 0.7 - 2. 0 mmol/L [employer] Work Phone: [phone] Test Performed by [facility], [address] Work Phone: [phone] [facility] Work Phone: [phone] NT pro BNPon 06-15-2021 Natriuretic peptide B (Bld) [Mass/Vol] 4790 pg/mL High 0-125 [facility] Comment on above: Performed By: #### B NP3, LACT3, CMP3, TROPN, PT, HEMOG #### [facility] [address] [place] [address] No Panel InformationOrdered By: Paige Burnham on 06-15-2021 Test Performed by [facility], [address] [place] [address] [facility] Work Phone: [phone] [facility] Work Phone: [phone] POCT VenousOrdered By: Jordana Burnham on 06-15-2021 Base Excess, Obey 2.6 mmol/L -3.0 - 3.0 mmol/L [facility] Work Phone: [phone] HCO3 (Bld) [Moles/Vol] 26.7 mmol/L 23.0 - 27.0 mmol/L [facility] Work Phone: [phone] Interpretation and review of laboratory results Abnormal [facility] Work Phone: [phone] Oxygen saturation in Blood 88.5 % High 6 0.0 - 80.0 % [facility] Work Phone: [phone] pCO2, Obey 38.5 mm[Hg] Low 40.0 - 55.0 mm[Hg] [employer] Work Phone: [phone] pH, Obey 7.448 High [facility] Work Phone: [phone] pO2, Obey 53.0 mm[Hg] High 30.0 - 50.0 mm[Hg] [employer] Work Phone: [phone] TC02 (Calc), Obey 27.8 mmol/L 24.0 - 28.0 mmol/L [employer] Work Phone: [phone] Comment on above: Performed by CLIA ID : [id number] [facility] SystemVestaron CorporationAr[place], [place] Test Performed by [employer], [address] [place], [place] [address] [facility] Work Phone: [phone] [facility] Work Phone: [phone] Prothrombin Timeon INR 1.0 Normal 0.9-1.1 [facility] Comment on above: Result Comment: Lul mmended [...] NP3, LACT3, CMP3, TROPN, PT, HEMOG #### [employer] [address] [place] [address] PT Coag (PPP) [Time] 10.7 s Normal 9.0-12.0 [facility] [facility] Comment on above: Result Comment: . Performed By: #### B NP3, LACT3, CMP3, TROPN, PT, HEMOG #### [employer] [address] [place] [address] Protime-INROrdered By: Jordana Burnham on 06-15-2021 INR Coag (Bld) [Relative time] 1.0 {INR} [facility] Work Phone: Comment on above: Recommended Anticoag [...] 10.7 s 9.0 - 1 2.0 s [employer] Work Phone: Comment on above: . Test Performed by [employer], [address] [place], [place] [id number] [place], [place] [address] Work Phone: [employer] Work Phone: STREP PNEUMO ANTIGEN, URINEo n 06-15-2021 STREP PNEUMO ANTIGEN, URINE Not detected Normal [employer] Comment on above: Performed By: #### B NP3, LACT3, CMP3, TROPN, PT, HEMOG #### [employer] [address] [place] [address] Troponin Ion 06-15-2021 Troponin I.cardiac [Mass/Vol] 0.029 ng/mL Normal 0.000-0.03 4 [employer] Comment on above: Result Comment: . Performed By: #### B NP3, LACT3, CMP3, TROPN, PT, HEMOG #### [employer] [address] [place] [address] Troponin [id number] By: Jordana Burnham on 06-15-2021 Troponin I.cardiac [Mass/Vol] 0.029 ng/mL 0.000 - 0.034 ng/mL [employer] Work Phone: Comment on above: . Venous Blood Gas Respiratory on 06-15-2021 Base Excess 2.6 mmol/L Normal -3.0-3.0 [employer] Comment on above: Performed By: #### B NP3, LACT3, CMP3, TROPN, PT, HEMOG #### [employer] [address] [place] [address] CO2 [Moles/Vol] 27.8 mmol/L Normal 24.0-28.0 [facility] Comment on above: Result Comment: Perf ormed by KRYSTINA ID: [id number] [place], [place] Performed By: #### B NP3, LACT3, CMP3, TROPN, PT, HEMOG #### [facility] [address] [place] [address] HCO3 (Bld) [Moles/Vol] 26.7 mmol/L Normal 23.0-27.0 [facility] Comment on above: Performed By: #### B NP3, LACT3, CMP3, TROPN, PT, HEMOG #### [facility] [address] [place] [address] Oxygen (Bld) [Partial pressure] 53.0 mm[Hg] High 30.0-50.0 [facility] Comment on above: Performed By: #### B NP3, LACT3, CMP3, TROPN, PT, HEMOG #### [facility] [address] [place] [address] Oxygen saturation in Blood 88.5 % High 60.0-80.0 [facility] Comment on above: Performed By: #### B NP3, LACT3, CMP3, TROPN, PT, HEMOG #### [facility] [address] [place] [address] pCO2 38.5 mm[Hg] Low 40.0-55.0 [facility] Comment on above: Performed By: #### B NP3, LACT3, CMP3, TROPN, PT, HEMOG #### [facility] [address] [place] [address] pH 7.448 High 7.330-7.43 0 [facility] Comment on above: Performed By: #### B NP3, LACT3, CMP3, TROPN, PT, HEMOG #### [facility] [address] [place] [address] XR CHEST PORTABLEOrdered By: Paige Burnham on 06-15-2021 Patient Name: ALESSIO MASCORRO Diagnostic Radiology ACCESSION EXAM DATE/TIME PROCEDURE ORDERING PROVIDER [id number] 06/15/2021 20:35 EDT CR Chest Portable Maite PierceCHACHA PAIGE CPT code 44316 Reason For Exam (CR Chest Portable) Dyspnea [...] R Transcribed Date and Time: 06/15/2021 9:06 [facility] Work Phone: [place], [facility] Incoming Rad[facility] Results From [facility] - 06/15/2021 9:06 PM EDT Patient Name: ALESSIO MASCORRO Diagnostic Radiology ACCESSION EXAM DATE/TIME PROCEDURE ORDERING PROVIDER [id number] 06/15/2021 20:35 EDT CR Chest Portable Maite PiercePAIGE BURNHAM CPT code 47656 Reason For Exam (CR Chest Portable) Dyspnea [...] R Transcribed Date and Time: 06/15/2021 9:06 [facility] Work Phone: [facility] Work Phone: Basic Metabolic Panelon 10-0 Anion gap [Moles/Vol] 4 mmol/L Normal 3-13 [facility] Comment on above: Performed By: #### T CLEMENTINE, HEMOG, BMP3 #### [facility] [address] [place] [address] Calcium [Mass/Vol] 8.0 mg/dL Low 8.4-10.4 [facility] Comment on above: Performed By: #### T ROPN, HEMOG, BMP3 #### [facility] [address] [place] [address] CO2 [Moles/Vol] 27 mmol/L Normal 22-30 [facility] Comment on above: Performed By: #### T ROPAlesha, HEMOG, BMP3 #### [facility] [address] [place] [address] Glucose [Mass/Vol] 145 mg/dL High 70-100 [facility] Comment on above: Performed By: #### T CLEMENTINE, HEMOG, BMP3 #### [facility] [address] [place] [address] Urea nitrogen [Mass/Vol] 21 mg/dL High 9-20 [facility] Comment on above: Performed By: #### T CLEMENTINE, HEMOG, BMP3 #### [facility] [address] [place] [address] Creatinine [Mass/Vol] 0.80 mg/dL Normal 0.52-1.25 [facility] Comment on above: Performed By: #### T ROPN, HEMOG, BMP3 #### [facility] [address] [place] [address] GFR/1.73 sq M.predicted among blacks MDRD (S/P/Bld) [Vol rate/Area] 90.0 mL/min/{1.73_m2} Normal >60 [facility] Comment on above: Performed By: #### T ROPN, HEMOG, BMP3 #### [facility] [address] [place] [address] GFR/1.73 sq M.predicted among non-blacks MDRD (S/P/Bld) [Vol rate/Area] 77.6 mL/min/{1.73_m2} Normal >60 [facility] Comment on above: Result Comment: KDIG O [...] renal tubular creatinine secretion. Performed By: #### PEGGY MOORE BMP3 #### [facility] [address] [place] [address] Chloride [Moles/Vol] 108 mmol/L High 98-107 [facility] Comment on above: Performed By: #### PEGGY MOORE BMP3 #### [facility] [address] [place] [address] Potassium [Moles/Vol] 3.8 mmol/L Normal 3.5-5.1 [facility] Comment on above: Performed By: #### PEGGY MOORE BMP3 #### [facility] [address] [place] [address] Sodium [Moles/Vol] 138 mmol/L Normal 135-145 [facility] Comment on above: Performed By: #### PEGGY MOORE BMP3 #### [facility] [address] [place] [address] Basic Metabolic PanelOrdered By: Juice Perez on 06-14-2021 Anion gap [Moles/Vol] 4 mmol/L 3 - 13 mmol/L [facility] Work Phone: Calcium [Mass/Vol] 8.0 mg/dL Low 8.4 - 10. 4 mg/dL [facility] Work Phone: Chloride [Moles/Vol] 108 mmol/L High 98 - 10 7 mmol/L [facility] Work Phone: [phone] CO2 [Moles/Vol] 27 mmol/L 22 - 30 mmol/L [employer] Work Phone: Creatinine [Mass/Vol] 0.8 mg/dL 0.52 - 1.25 mg/dL [employer] Work Phone: EGFR IF NonAfrican B[place]ian 77.6 mL/min >60 [employer] Work Phone: Comment on above: KDIGO guidelines [...] MDRD (S/P/Bld) [Vol rate/Area] 90.0 mL/min/{1.73_m2} >60 [facility] Work Phone: Glucose [Mass/Vol] 145 mg/dL High 70 - 100 mg/dL [employer] Work Phone: Interpretation and review of laboratory results Abnormal [facility] Work Phone: Potassium [Moles/Vol] 3.8 mmol/L 3.5 - 5.1 mmol/L [employer] Work Phone: Sodium [Moles/Vol] 138 mmol/L 135 - 145 mmol/L [employer] Work Phone: Urea nitrogen (BldV) [Mass/Vol] 21 mg/dL High 9 - 20 mg/dL [employer] Work Phone: Test Performed by [employer], [address] [place] [id number] [place], [place] [address] Work Phone: 1 [facility] Work Phone: 1 C-Reactive Proteinon 021 CRP [Mass/Vol] 47.9 mg/L High 0.0-9.9 [facility] Comment on above: Result Comment: . Performed By: #### B NP3, LACT3, CMP3, TROPN, PT, HEMOG #### [facility] [employer] [facility] [address] [place] [address] C-Reactive ProteinOrdered By : Brady Beatty on 06-14-2021 CRP [Mass/Vol] 47.9 mg/L High 0.0 - 9.9 mg/L [facility] Work Phone: Comment on above: . Interpretation and review of laboratory results Abnormal [facility] Work Phone: Test Performed by [facility], [address] Work Phone: [facility] Work Phone: COVID-19, RapidOrdered By: Nuria Perez on 06-14-2021 SARS-CoV-2 (COVID-19) RNA KAYDEN+probe Ql (Unsp spec) see below [facility] Work Phone: Comment on above: DETECTED Expected Result: Not Detected _ Isothermal nucleic acid amplification performed on the [employer] System by the [facility] Laboratory Negative results do not preclude SARS-CoV-2 infection and should not be used as the sole basis for treatment or other patient management decisions. This assay was developed by [employer] and distributed under an Emergency Use Authorization (EUA) granted by the FDA for the qualitative detection of SARS-CoV-2 nucleic acid. Provider and patient fact sheets can be found at https://www.fda.gov/media/189373/download and https://www.fda.gov/media/344518/download. Test Performed by [facility], [address] Work Phone: 1 [facility] Work Phone: [phone] CR Chest Portableon 06-14-20 21 CR Chest Portable Patient Name: ALESSIO MASCORRO Diagnostic Radiology ACCESSION EXAM DATE/TIME PROCEDURE ORDERING PROVIDER [id number] 06/14/2021 11:10 EDT CR Chest Portable [id number] -JUICE PEREZ CPT code 31208 Reason For Exam (CR Chest Portable) unresponsive [...] Report Dictated on Final Dictating Physician: MD WORKMAN AHMAD Signed Date and Time: 06/14/2021 11:22 am Signed by: MD WORKMAN AHMAD Transcribed Date and Time: 06/14/2021 11:23 Normal [facility] Drugs of Abuseon 06-14-2021 Amphetamines, Ur Positive Normal [facility] Comment on above: Performed By: #### B NP3, LACT3, CMP3, TROPN, PT, HEMOG #### [facility] [address] [place] [address] Phencyclidine (PCP), Ur Negative Normal [facility] Comment on above: Result Comment: The expected [...] NP3, LACT3, CMP3, TROPN, PT, HEMOG #### [facility] [address] [place] [address] Methadone, Ur Negative Normal [facility] Comment on above: Performed By: #### B NP3, LACT3, CMP3, TROPN, PT, HEMOG #### [facility] [address] [place] [address] Opiates, Ur Negative Normal [facility] Comment on above: Performed By: #### B NP3, LACT3, CMP3, TROPN, PT, HEMOG #### [facility] [address] [place] [address] Cocaine, Ur Negative Normal [facility] Comment on above: Performed By: #### B NP3, LACT3, CMP3, TROPN, PT, HEMOG #### [facility] [address] [place] [address] Barbiturates, Ur Negative Normal [facility] Comment on above: Performed By: #### B NP3, LACT3, CMP3, TROPN, PT, HEMOG #### [facility] [address] [place] [address] Benzodiazepines, Ur Positive Normal [facility] Comment on above: Performed By: #### B NP3, LACT3, CMP3, TROPN, PT, HEMOG #### [facility] [address] [place] [address] Oxycodone/Oxymorphine,Ur Negative Normal [facility] Comment on above: Performed By: #### B NP3, LACT3, CMP3, TROPN, PT, HEMOG #### [facility] [address] [place] [address] ED Provider Noteon ED Provider Note Emergency Department Encounter [facility] ED ED Patient: Alessio Mascorro : 1951 Date of Evaluation: 06/14/2021 ED Provider: Juice Perez, DO Chief Complaint Chief Complaint Patient presents with ? Altered Mental Status ATMAUTLUAK I wore appropriate PPE for the entirety of this encounter. Does this patient come from an ECF, SNF, Rehab, Jail or other Congregate setting: no (If yes [...] otherwise acutely negative except as in the ATMAUTLUAK. Past History No past medical history on [...] Gatherings with Friends and Family: ? Attends [employer] Services: ? Active Member of Clubs or [...] tachycardia heart rate 105 bpm. Normal axis. MN, QRS, QT intervals within normal limits. T [...] her home and [facility]. They were talking to her this morning, left the room for a minute when they came back, she was unresponsive and staring off into space. They are unsure of any medications or medical history. Plan order laboratory work-u (more content not included)... Normal [facility] Glucose,Bedsideon 06-14-2021 Glucose [Mass/Vol] 146 mg/dL High 70-100 [facility] Comment on above: Result Comment: Test performed by glucose meter. Results may be 10%-15% lower than serum/plasma values. (CLIA ID [id number]) Performed By: #### B NP3, LACT3, CMP3, TROPN, PT, HEMOG #### [facility] [address] [place] [address] Hemogramon 06-14-2021 Erythrocyte distribution width (RBC) [Ratio] 14.1 % Normal 11.5-14.5 [facility] Comment on above: Performed By: #### YAAKOV MOOREOG, BMP3 #### [facility] [address] [place] [address] Hematocrit (Bld) [Volume fraction] 37.8 % Normal 35.0-47.0 [facility] Comment on above: Performed By: #### YAAKOV MOOREOG, BMP3 #### [facility] [address] [place] [address] Hemoglobin (Bld) [Mass/Vol] 12.4 g/dL Normal 11.7-16. 0 [facility] Comment on above: Performed By: #### YAAKOV MOOREOG, BMP3 #### [facility] [address] [place] [address] MCH (RBC) [Entitic mass] 30.8 pg Normal 26.0-34.0 [facility] Comment on above: Performed By: #### YAAKOV MOOREOG, BMP3 #### [facility] [address] [place] [address] MCHC 32.8 % Normal 32.0-36.0 [facility] Comment on above: Performed By: #### YAAKOV MOOREOG, BMP3 #### [facility] [address] [place] [address] MCV (RBC) [Entitic vol] 93.9 fL Normal 79.0-98.0 [facility] Comment on above: Performed By: #### YAAKOV MOOREOG, BMP3 #### [facility] [address] [place] [address] Platelet mean volume (Bld) [Entitic vol] 9.2 fL Normal 7.4-10.4 [facility] Comment on above: Performed By: #### YAAKOV MOOREOG, BMP3 #### [facility] [address] [place] [address] Platelets (Bld) [#/Vol] 184 10*3/uL Normal 140-440 [facility] [employer] [facility] Comment on above: Performed By: #### PEGGY MOORE, BMP3 #### [facility] [employer] [facility] [address] [place] [address] RBC (Bld) [#/Vol] 4.02 10*6/uL Normal 3.80-5.20 [facility] [employer] Comment on above: Performed By: #### PEGGY MOORE, BMP3 #### [facility] [employer] [facility] [address] [place] [address] WBC (Bld) [#/Vol] 6.7 10*3/uL Normal 3.6-10.7 [facility] Comment on above: Performed By: #### PEGGY MOORE, BMP3 #### [facility] [address] [place] [address] Hemogram (CBC)Ordered By: Chuy Perez on 06-14-2021 Hematocrit (Bld) [Volume fraction] 37.8 % 35.0 - 47.0 % [employer] Work Phone: [phone] Hemoglobin.gastrointestinal spec 1 Ql (Stl) 12.4 g/dL 11.7 - 16.0 g/dL [employer] Work Phone: [phone] MCH (RBC) [Entitic mass] 30.8 pg 26. 0 - 34.0 pg [employer] Work Phone: [phone] MCHC (RBC) [Mass/Vol] 32.8 % 32.0 - 36.0 % [employer] Work Phone: [phone] MCV (RBC) [Entitic vol] 93.9 fL 79.0 - 98.0 fL [employer] Work Phone: [phone] Platelet distribution width (Bld) [Ratio] 14.1 % 11.5 - 14.5 % [employer] Work Phone: [phone] Platelet mean volume (Bld) [Entitic vol] 9.2 fL 7.4 - 10.4 fL [employer] Work Phone: [phone] Platelets (Bld) [#/Vol] 184 10*3/uL 140 - 440 10*3/uL [employer] Work Phone: 1() RBC (Bld) [#/Vol] 4.02 10*6/uL 3.80 - 5.20 10*6/uL [facility] Work Phone: [phone] WBC (Bld) [#/Vol] 6.7 10*3/uL 3.6 - 10.7 10*3/uL [facility] Work Phone: 1() Test Performed by [employer], [address] [place], [place] [address] [facility] Work Phone: 1() [facility] Work Phone: 1 Legionella antigen, urineOrd ered By: Brady Beatty on 06-14-2021 LEGIONELLA ANTIGEN Not detected [facility] Work Phone: [phone]) No Panel InformationOrdered By: Brady Beatty on 06-14-2021 Test Performed by [employer], [address] [place] [address] [facility] Work Phone: 1) [facility] Work Phone: 1 POCT GlucoseOrdered By: Dust in [place] on 06-14-2021 Glucose [Mass/Vol] 146 mg/dL High 70 - 100 mg/dL [facility] Work Phone: ) Comment on above: Test performed by gl ucose meter. Results may be 10%-15% lower than serum/plasma values. (CLIA ID [id number]) Interpretation and review of laboratory results Abnormal [facility] Work Phone: 1) Test Performed by [employer], [address] [place], [place] [address] [facility] Work Phone: 1() [employer] Work Phone: 1) Procalcitoninon 06-14-2021 Procalcitonin 0.43 ng/mL High 0.00-0.09 [facility] Comment on above: Performed By: #### B NP3, LACT3, CMP3, TROPN, PT, HEMOG #### [employer] [address] [place] [address] Interpretation See Below Normal [facility] Comment on above: Result Comment: PCT <0.50 = Low risk of severe sepsis and/or septic shock. PCT >2.00 = High risk of severe sepsis and/or septic shock. Performed By: #### B NP3, LACT3, CMP3, TROPN, PT, HEMOG #### [facility] [employer] [address] [place] [address] ProcalcitoninOrdered By: Judy Beatty on 06-14-2021 Interpretation See Below [employer] Work Phone: Comment on above: PCT <0.50 = Low risk of severe sepsis and/or septic shock. PCT >2.00 = High risk of severe sepsis and/or septic shock. Interpretation and review of laboratory results Abnormal [employer] Work Phone: Procalcitonin 0.43 ng/mL High 0.00 - 0.09 ng/mL [employer] Work Phone: Test Performed by [employer] [address] [employer] Work Phone: [employer] Work Phone: SARS-CoV-2 (LAB DEPT)on SARS-CoV-2 (COVID-19) RNA KAYDEN+probe Ql (Unsp spec) see below Normal [facility] [employer] Comment on above: Result Comment: DETE CTED Expected Result: Not Detected _ Isothermal nucleic acid amplification performed on the [employer] System by the [facility] Negative results do not preclude SARS-CoV-2 infection and should not be used as the sole basis for treatment or other patient management decisions. This assay was developed by [employer] and distributed under an Emergency Use Authorization (EUA) granted by the FDA for the qualitative detection of SARS-CoV-2 nucleic acid. Provider and patient fact sheets can be found at https://www.fda.gov/media/510899/download and https://www.fda.gov/media/293313/download. Performed By: #### C VCCL #### [employer] [facility] [address] [place] [address] Strep Pneumoniae AntigenOrde red By: Brady Beatty on 10-08-2021 STREP PNEUMONIAE ANTIGEN, URINE Not detected [facility] Work Phone: Troponin Ion 06-14-2021 Troponin I.cardiac [Mass/Vol] 0.029 ng/mL Normal 0.000-0.03 4 [facility] [employer] [facility] Comment on above: Result Comment: . Performed By: #### T ROPN, HEMOG, BMP3 #### [employer] [address] [place] [address] Troponin [id number] By: Korina Perez on 06-14-2021 Troponin I.cardiac [Mass/Vol] 0.029 ng/mL 0.000 - 0.034 ng/mL [facility] Work Phone: [phone] Comment on above: . Test Performed by [facility], [address], [place], [place] [address] [facility] Work Phone: [phone] [facility] Work Phone: [phone] Urine Drug ScreenOrdered By: Brady Beatty on 06-14-2021 Amphetamines, urine Positive [facility] Work Phone: [phone] Barbiturates, Ur Negative [facility] Work Phone: [phone] Benzodiazepine Ur Qual Positive [facility] Work Phone: [phone] Cocaine Metabolites, Ur Negative [facility] Work Phone: [phone] Methadone, Urine Negative [facility] Work Phone: [phone] Opiates, Urine Negative [facility] Work Phone: [phone] Oxycodone Screen, Ur Negative [facility] Work Phone: [phone] PCP, Urine Negative [facility] Work Phone: [phone] Comment on above: The expected value f [...] confirmation under separate order. Test Performed by [facility], [address] [place], [place] [address] [facility] Work Phone: [facility] Work Phone: XR CHEST PORTABLEOrdered By: Juice Perez on 06-14-2021 Patient Name: ALESSIO MASCORRO Diagnostic Radiology ACCESSION EXAM DATE/TIME PROCEDURE ORDERING PROVIDER [id number] 06/14/2021 11:10 EDT CR Chest Portable [id number] -NESHEIM, JUICE CPT code 60563 Reason For Exam (CR Chest Portable) unresponsive [...] AHMAD Transcribed Date and Time: 06/14/2021 11:23 [facility] Work Phone: [place], [facility] Incoming Radiology Results From [facility] - 06/14/2021 11:23 AM EDT Patient Name: ALESSIO MASCORRO Diagnostic Radiology ACCESSION EXAM DATE/TIME PROCEDURE ORDERING PROVIDER [id number] 06/14/2021 11:10 EDT CR Chest Portable [id number] -NESHEIM, JUICE CPT code 94070 Reason For Exam (CR Chest Portable) unresponsive [...] 09-13 Surgical Tissue Exam Test performed at [place] [address] NAME: MARCIA MASCORRO REQUESTING: SHRUTI ONTIVEROS MD [...] and agrees with the diagnosis. OPERATIVE PROCEDURE: Esophagogastroduodenos copy CLINICAL INFORMATION: Nausea [R11.0], Epigastric pain [R10.13], [...] PRINTED: 09/15/[address] [facility] Comment on above: Performed By: #### S URG #### [address] [place], [place] [address] Comprehensive Panelon 2018 ALP [Catalytic activity/Vol] 168 U/L High 45-117 [facility] Comment on above: Performed By: #### P 14 #### [facility] 1 [place], [place] [address] Bilirubin [Mass/Vol] 0.3 mg/dL Normal 0.2-1.0 [facility] Comment on above: Performed By: #### P 14 #### [facility] 1 [place], [place] [address] Protein [Mass/Vol] 7.5 g/dL Normal 6.4-8.2 [facility] Comment on above: Performed By: #### P 14 #### [facility] 1 [place] [address] ALT [Catalytic activity/Vol] 13 U/L Normal 12-78 [facility] Comment on above: Performed By: #### P 14 #### [facility] 1 [place] [address] AST [Catalytic activity/Vol] 15 U/L Normal 15-37 [facility] Comment on above: Performed By: #### P 14 #### [facility] 1 [place], [place] [address] Creatinine [Mass/Vol] 0.81 mg/dL Normal 0.51-0.95 [facility] Comment on above: Performed By: #### P 14 #### [facility] 1 [place], [place] [address] Albumin [Mass/Vol] 3.4 g/dL Normal 3.4-5.0 [facility] Comment on above: Performed By: #### P 14 #### [facility] 1 [place], [place] [address] Anion gap [Moles/Vol] 6 mmol/L Low 8-16 [facility] Comment on above: Performed By: #### P 14 #### [facility] 1 [place], [place] [address] CO2 [Moles/Vol] 31 mmol/L Normal 21-32 [facility] Comment on above: Performed By: #### P 14 #### [facility] 1 [place] [address] Glucose [Mass/Vol] 83 mg/dL Normal 70-99 [facility] Comment on above: Performed By: #### P 14 #### [facility] [address] [place] [address] Urea nitrogen [Mass/Vol] 13 mg/dL Normal 7-18 [facility] Comment on above: Performed By: #### P 14 #### [facility] [address] [place] [address] Calcium [Mass/Vol] 9.9 mg/dL Normal 8.5-10.1 [facility] Comment on above: Performed By: #### P 14 #### [facility] [address] [place] [address] Chloride [Moles/Vol] 106 mmol/L Normal 98-107 [facility] Comment on above: Performed By: #### P 14 #### [facility] [address] [place] [address] Potassium [Moles/Vol] 3.6 mmol/L Normal 3.5-5.1 [facility] Comment on above: Performed By: #### P 14 #### [facility] 1 [place] [address] Sodium [Moles/Vol] 139 mmol/L Normal 136-145 [facility] Comment on above: Performed By: #### P 14 #### [place] [address] [facility] Troponin Ion 08-23-2019 Troponin I.cardiac [Mass/Vol] ng/mL Normal 0.015-0.[address] [facility] Comment on above: Performed By: #### E RTRP #### [facility] 1 [place] [address] Hemogram/Diffon 08-23-2019 Abs Immature Grans 0.01 thou/cmm Normal 0.00-0.05 [facility] Comment on above: Performed By: #### C BCD1 #### [place] [address] Abs Neut (ANC) 2.51 thou/cmm Normal 1.56-6.13 [facility] Comment on above: Performed By: #### C BCD1 #### [facility] 1 [place], [place] [address] Abs. Baso 0.06 thou/cmm Normal 0.01-0.08 [facility] Comment on above: Performed By: #### C BCD1 #### [facility] 1 [place], [place] [address] Abs. Rogers 0.49 thou/cmm Normal 0.27-0.70 [facility] Comment on above: Performed By: #### C BCD1 #### [facility] 1 [place], [place] [address] Basophils/100 WBC (Bld) 0.9 % Normal A [facility] [place] Comment on above: Performed By: #### C BCD1 #### [facility] 1 [place] [address] Eosinophils (Bld) [#/Vol] 0.46 thou/cmm High 0.00-0. 31 [facility] Comment on above: Performed By: #### C BCD1 #### [facility] 1 [place], [place] [address] Eosinophils/100 WBC (Bld) 6.8 % Normal [facility] Comment on above: Performed By: #### C BCD1 #### [facility] 1 [place], [place] [address] Erythrocyte distribution width (RBC) [Ratio] 12.8 % Normal 11.7-14.4 [facility] Comment on above: Performed By: #### C BCD1 #### [facility] 1 [place], [place] [address] Hematocrit (Bld) [Volume fraction] 42.1 % Normal 34.1-44.9 [facility] Comment on above: Performed By: #### C BCD1 #### [facility] 1 [place], [place] [address] Hemoglobin (Bld) [Mass/Vol] 14.3 g/dL Normal 11.2-15. 7 [facility] Comment on above: Performed By: #### C BCD1 #### [facility] 1 [place], [place] [address] Immature Grans 0.10 % Normal [facility] Comment on above: Performed By: #### C BCD1 #### [facility] 1 [place], [place] [address] Lymphocytes (Bld) [#/Vol] 3.28 thou/cmm Normal 1.18-3. 74 [facility] Comment on above: Performed By: #### C BCD1 #### [facility] 1 [place], [place] [address] Lymphocytes/100 WBC (Bld) 48.2 % Normal [facility] Comment on above: Performed By: #### C BCD1 #### [facility] 1 [place] [address] MCH (RBC) [Entitic mass] 30.6 pg Normal 25.6-32.2 [facility] Comment on above: Performed By: #### C BCD1 #### [facility] [address] [place] [address] MCHC (RBC) [Mass/Vol] 34.0 % Normal 31.6-34.8 [facility] Comment on above: Performed By: #### C BCD1 #### [facility] 1 [place] [address] MCV (RBC) [Entitic vol] 90.1 fL Normal 79.4-94.8 [facility] Comment on above: Performed By: #### C BCD1 #### [facility] 1 [place] [address] Monocytes/100 WBC (Bld) 7.2 % Normal [facility] Comment on above: Performed By: #### C BCD1 #### [facility] 1 [place] [address] Platelet mean volume (Bld) [Entitic vol] 9.1 fL Low 9.4-12.3 [facility] Comment on above: Performed By: #### C BCD1 #### [facility] 1 [place], [place] [address] Platelets (Bld) [#/Vol] 247 thou/cmm Normal 182-369 [facility] Comment on above: Performed By: #### C BCD1 #### [facility] 1 [place], [place] [address] RBC (Bld) [#/Vol] 4.67 mil/cmm Normal 3.93-5.22 [facility] Comment on above: Performed By: #### C BCD1 #### [facility] 1 [place] [address] RDW SD 41.8 fl Normal 36.4-46.3 [facility] Comment on above: Performed By: #### C BCD1 #### [facility] [address] [place] [address] Seg Neutrophil 36.8 % Normal [facility] Comment on above: Performed By: #### C BCD1 #### [facility] [address] [place] [address] WBC (Bld) [#/Vol] 6.81 thou/cmm Normal 3.98-10.04 [facility] Comment on above: Performed By: #### C BCD1 #### [facility] 1 [place] [address] MDRD GFRon 08-23-2019 GFR/1.73 sq M predicted among non-blacks MDRD (S/P/Bld) [Vol rate/Area] mL/min/{1.73_m2} Normal >60mL/min/ 1.73m2 [facility] Comment on above: Result Comment: If t he patient is , multiply the result by 1.210. Performed By: #### G FR #### [facility] 1 [place] [address] XR CHEST 2V FRONTAL/LATon XR CHEST 2V [...] thoracic spine.. IMPRESSION: No acute radiographic abnormality. Corporate Tax Preparer: ANNE Transcribe Date/Time: Aug 23 2019 7:26P Dictated by : ESAU WELDON MD This examination was interpreted and the report reviewed and electronically signed by: ESAU WELDON MD on Aug 23 2019 7:28PM EST Normal [facility] 6-ACETYLMORPHINon 03-12-2019 6-YANG TOXASSURE Negative Normal () [facility] Comment on above: Order Comment: Sylvie Humphreys Performed By: #### L 600.19277, L600.21788 #### [facility] [address] [address] # [phone] CONFIRMATION 6M Not Detected Normal () [facility] Comment on above: Order Comment: Sylvie Humphreys Result Comment: INFC E Result Units: ng/mg creat Testing Threshold: 10 ng/mL This test was developed and its performance characteristics determined by [facility]. It has not been cleared or approved by the Food and Drug Administration. Performed At: [employer] [address] [id number] Julio Abraham [facility] [id number] Performed By: #### L 600.01023, L600.28458 #### [facility] [address] [address] # [phone] TOXASSURE COMPRon 03-12-2019 TOXASSURE COMPR FINAL Normal () [facility] Comment on above: Order Comment: Sylvie Humphreys Result Comment: TOXASSURE COMP DRUG ANALYSIS,UR 6-Acetylmorphine,ToxAssure Add CREATININE,URINE Test Result Flag Units Drug Present Alprazolam [...] metabolite of sertraline. Acetaminophen PRESENT Promethazine PRESENT Test Result Flag Units Ref Range Creatinine 71 mg/dL >=20 Declared Medications: Medication list was not provided. For clinical consultation, please call . Performed By: #### L 600.70230, L600.29176 #### [address] [address] # [phone] Clinical Lists Update: Prelo engagement manager 01-19-2017 Left ventricular Ejection fraction 55 % Invalid Interpretation Code [facility] Work Phone: [phone] Office Visiton 01-02-2017 Dietary management education, guidance, and counseling (procedure) yes Invalid Interpretation Code [facility] Work Phone: [phone] Documentation of current medications (procedure) Done Invalid Interpretation Code [facility] Work Phone: [phone] Smoking cessation education (procedure) yes Invalid Interpretation Code [facility] [address] [address] Work Phone: [phone] Tobacco use CPHS Current every day smoker Invalid Interpretation Code [facility] Work Phone: [phone] Clinical Lists Updateon 12-06 Left ventricular Ejection fraction 53 % Invalid Interpretation Code [facility] Work Phone: [phone] Clinical Lists Update: Prelo engagement manager 08-27-2013 Alanine aminotransferase (ALT) 19 U/L Invalid Interpretation Code [facility] Work Phone: [phone] Alkaline phosphatase (ALP) 138 U/L Inval id Interpretation Code [facility] Work Phone: [phone] Aspartate aminotransferase (AST) 18 U/L Invalid Interpretation Code [facility] Work Phone: [phone] Bilirubin (total) 0.20 mg/dL Invalid Interpretation Code [facility] Work Phone: [phone] Calcium 9.1 mg/dL Invalid Interpretation Code [facility] [address] [address] Work Phone: [phone] Chloride 107 mmol/L Invalid Interpretation Code [facility] Work Phone: [phone] CO2 27.0 mmol/L Invalid Interpretation Code [facility] [address] [address] Work Phone: [phone] Creatinine 0.7 mg/dL Invalid Interpretation Code [facility] [address] Work Phone: [phone] Hematocrit (HCT) 41.0 % Invalid Interpretation Code [facility] [address] Work Phone: [phone] Hemoglobin (HGB) 14.1 g/dL Invalid Interpretation Code [facility] [address] Work Phone: [phone] Platelets 228 10*3/mm3 Invalid Interpretation Code [facility] [address] Work Phone: [phone] Potassium 3.6 mmol/L Invalid Interpretation Code [facility] [address] Work Phone: [phone] Sodium 140 mmol/L Invalid Interpretation Code [facility] [address] Work Phone: [phone] Thyroid stimulating hormone (TSH) 2.56 u[iU]/mL Invalid Interpretation Code [facility] Work Phone: [phone] Urea nitrogen 15 mg/dL Invalid Interpretation Code [facility] Work Phone: [phone] WBC (Leukocytes) 7.4 10*3/uL Invalid Interpretation Code [facility] [address] [address] Work Phone: [phone] EKG Report: [employer] ECG Obse rvationson 04-20-2013 GE use only - for Link[employer] import when terms are not otherwise specified 421 ms Invalid Interpretation Code [employer] Phone: [phone] Replaced Document: Brian E CG Observationson 04-20-2013 electrocardiogram interpretation 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 - Nonspecific T-abnormality . ABNORMAL Invalid Interpretation Code [facility] [employer] Phone: [phone] P wave axis, electrocardiogram 43 deg Invalid Interpretation Code [facility] [address] Work Phone: [phone] MN interval, electrocardiogram 128 ms Invalid Interpretation Code [facility] [address] Work Phone: [phone] Pulse (Heart Rate) 422 ms Invalid Interpretation Code [facility] Work Phone: [phone] Pulse (Heart Rate) 88 /min Invalid Interpretation Code [facility] Work Phone: [phone] QRS axis, electrocardiogram 32 deg Inva lid Interpretation Code [facility] Work Phone: [phone] QRS duration, electrocardiogram 114 ms Invalid Interpretation Code [facility] [address] Work Phone: [phone] QT interval, electrocardiogram new path ms Invalid Interpretation Code [facility] Work Phone: [phone] T wave axis, electrocardiogram 74 deg Invalid Interpretation Code [facility] Work Phone: [phone] Clinical Lists Update: engagement manager 11-04-2012 Anion gap 8 mmol/L Invalid Interpretation Code [facility] Work Phone: [phone] BUN/Creatinine Ratio 12.5 mg/mg Invalid Interpretation Code [facility] Work Phone: [phone] Erythrocytes (RBC) 4.59 10*6/uL Invalid Interpretation Code [facility] Work Phone: [phone] Glucose 95 mg/dL Invalid Interpretation Code [facility] Work Phone: [phone] MCH 30.3 pg Invalid Interpretation Code [facility] [address] [address] Work Phone: [phone] MCV 91.1 fL Invalid Interpretation Code [facility] [address] Work Phone: [phone] Clinical Lists Update: 07-29-2012 MCHC 34.2 % Invalid Interpretation Code [facility] [address] Work Phone: [phone] RDW-CA 14.8 % High [facility] Work Phone: [phone] Clinical Lists Update: 03-30-2012 Cholesterol 225 mg/dL High [facility] Work Phone: [phone] HDL Cholesterol 22 mg/dL Low [facility] Work Phone: [phone] LDL Cholesterol 136 mg/dL High [facility] Work Phone: [phone] Triglyceride 333 mg/dL High [facility] Work Phone: [phone] very low density lipoproteins 67 mg/dL High [facility] [address] [address] Work Phone: [phone] Lab Report: [facility] - copyon specific gravity, urine >=1.030 Normal 1.00 2-1.[address] Work Phone: [phone] Lab Report: PTon 01-19-2012 INR in blood by coagulation 1.1 {INR} Normal [facility] [address] [address] Work Phone: [phone] prothrombin time, actual/normal, ratio 13.6 SECONDS Normal 11.9-14.[address] Work Phone: [phone] Lab Report: PTTon 01-19-2012 aPTT 33.1 s Normal 24.1-36.2 [facility] Work Phone: Replaced Document: TROPon Troponin I ng/mL Normal <0.06 [facility] Work Phone: [phone] COVID-19 virus antigen assay SARS-CoV-2 (COVID-19) Ag IA.rapid Ql (Resp) [facility] Work Phone: S. pyogenes Ag IF Ql (Throat ) S. pyogenes Ag IA Ql (Unsp spec) [facility] Work Phone: Throat Streptococcus pyogene s antigen detection by immunofluorescence S. pyogenes Ag IF Ql (Throat) [facility] Work Phone: Vital Signs Date Time Vital Sign Value Performing Clinician Facility 05-29-2025 14:30-0400 Diastolic blood pressure 60 mm[Hg] Dr. Gabriel Galvan MD Work Phone: [phone] [place] [address] 05-29-2025 14:30-0400 Systolic blood pressure 100 mm[Hg] Dr. Gabriel Galvan MD Work Phone: [phone] [place] [address] 05-29-2025 13:00-0400 Body temperature 98.4 [degF] Dr. Gabriel Galvan MD Work Phone: [phone])[phone] [place] [address] 05-29-2025 13:00-0400 Heart rate 72 /min Dr. Gabriel Galvan MD Work Phone: [phone])[phone] [place] [address] 05-29-2025 13:00-0400 Respiratory rate 18 /min Dr. Gabriel Galvan MD Work Phone: [phone] [place] [address] 05-29-2025 13:00-0400 SaO2% (BldA) [Mass fraction] 91 % Dr. Gabriel Galvan MD Work Phone: [phone] [place] [address] 05-29-2025 12:44-0400 Inhaled oxygen flow rate 2 L/min Dr. Gabriel Galvan MD Work Phone: [phone] [place] [address] 05-29-2025 05:08-0400 Body mass index (BMI) [Ratio] 27.1 kg/m2 Dr. Gabriel Galvan MD Work Phone: [facility] 05-29-2025 05:08-0400 Body weight 74.[address] Gabriel Galvan MD Work Phone: [facility] 05-26-2025 11:54-0400 Body height 165.[address] Gabriel Galvan MD Work Phone: [facility] 05-22-2025 10:47-0400 Body mass index (BMI) [Ratio] 30.06 kg/m2 Rajiv Praisler-Wood LEAD GENERATION SPECIALIST.PILOT CAPTAIN Work Phone: [facility] 05-22-2025 10:47-0400 Body temperature 99.39 [degF] Rajiv Praisler-Wood LEAD GENERATION SPECIALIST.PILOT CAPTAIN Work Phone: [facility] 05-22-2025 10:47-0400 Body weight 78.9 kg Rajiv Praisler-Wood LEAD GENERATION SPECIALIST.PILOT CAPTAIN Work Phone: [facility] 05-22-2025 10:47-0400 Diastolic blood pressure 90 mm[Hg] Rajiv Praisler-Wood LEAD GENERATION SPECIALIST.PILOT CAPTAIN Work Phone: [facility] 05-22-2025 10:47-0400 Heart rate 78 /min Rajiv Praisler-Wood LEAD GENERATION SPECIALIST.PILOT CAPTAIN Work Phone: [facility] 05-22-2025 10:47-0400 Respiratory rate 20 /min Rajiv Praisler-Wood LEAD GENERATION SPECIALIST.PILOT CAPTAIN Work Phone: [facility] 05-22-2025 10:47-0400 SaO2% (BldA) [Mass fraction] 93 % Rajiv Praisler-Wood LEAD GENERATION SPECIALIST.PILOT CAPTAIN Work Phone: [facility] 05-22-2025 10:47-0400 Systolic blood pressure 138 mm[Hg] Rajiv Praisler-Wood LEAD GENERATION SPECIALIST.PILOT CAPTAIN Work Phone: [facility] 03-28-2025 11:26-0400 Body height 162 cm Nora Mahendra LEAD GENERATION SPECIALIST.PILOT CAPTAIN Work Phone: [facility] 03-28-2025 11:26-0400 Body mass index (BMI) [Ratio] 29.68 kg/m2 Nora Mahendra LEAD GENERATION SPECIALIST.PILOT CAPTAIN Work Phone: [facility] 03-28-2025 11:26-0400 Body weight 77.9 kg Nora Mahendra LEAD GENERATION SPECIALIST.PILOT CAPTAIN Work Phone: [facility] 03-28-2025 11:26-0400 Diastolic blood pressure 62 mm[Hg] Nora Mahendra LEAD GENERATION SPECIALIST.PILOT CAPTAIN Work Phone: [facility] 03-28-2025 11:26-0400 Heart rate 60 /min Nora Mahendra LEAD GENERATION SPECIALIST.PILOT CAPTAIN Work Phone: [facility] 03-28-2025 11:26-0400 Respiratory rate 14 /min Nora Mahendra LEAD GENERATION SPECIALIST.PILOT CAPTAIN Work Phone: [facility] 03-28-2025 11:26-0400 SaO2% (BldA) [Mass fraction] 90 % Nora Mahendra LEAD GENERATION SPECIALIST.PILOT CAPTAIN Work Phone: [facility] 03-28-2025 11:26-0400 Systolic blood pressure 106 mm[Hg] Nora Mahendra LEAD GENERATION SPECIALIST.PILOT CAPTAIN Work Phone: [facility] 02-09-2025 15:13-0400 Body height 165.1 cm Grace Chaudhary MD, PhD Work Phone: [facility] 02-09-2025 15:13-0400 Body mass index (BMI) [Ratio] 29.86 kg/m2 Grace Chaudhary MD, PhD Work Phone: [facility] 02-09-2025 15:13-0400 Body weight 81.4 kg Grace Chaudhary MD, PhD Work Phone: [facility] 02-09-2025 15:13-0400 Diastolic blood pressure 60 mm[Hg] Grace Chaudhary MD, PhD Work Phone: [facility] 02-09-2025 15:13-0400 Heart rate 101 /min Grace Chaudhary MD, PhD Work Phone: [facility] 02-09-2025 15:13-0400 Systolic blood pressure 96 mm[Hg] Grace Chaudhary MD, PhD Work Phone: [facility] 01-10-2025 17:24-0400 Diastolic blood pressure 69 mm[Hg] Dr. Gabriel Galvan MD Work Phone: [phone])[phone] [place] [address] 01-10-2025 17:24-0400 Heart rate 66 /min Dr. Gabriel Galvan MD Work Phone: 1(194)[phone] [place] [address] 01-10-2025 17:24-0400 Inhaled oxygen flow rate 3 L/min Dr. Gabriel Galvan MD Work Phone: 1(211)[phone] [place] [address] 01-10-2025 17:24-0400 Respiratory rate 16 /min Dr. Gabriel Galvan MD Work Phone: [phone])[phone] [place] [address] 01-10-2025 17:24-0400 SaO2% (BldA) [Mass fraction] 94 % Dr. Gabriel Galvan MD Work Phone: 8(516)[phone] [place] [address] 01-10-2025 17:24-0400 Systolic blood pressure 102 mm[Hg] Dr. Gabriel Galvan MD Work Phone: [phone](872)681-640551 [place] [address] 01-10-2025 16:36-0400 Body temperature 98 [degF] Dr. Gabriel Galvan MD Work Phone: 1(063)[phone] [place] [address] 01-10-2025 15:15-0400 Body height 154.[address] Gabriel Galvan MD Work Phone: [phone] [place] [address] 01-10-2025 15:15-0400 Body mass index (BMI) [Ratio] 35.1 kg/m2 Dr. Gabriel Galvan MD Work Phone: 3(602)[phone] [place] [address] 01-10-2025 15:15-0400 Body weight 84.[address] Gabriel Galvan MD Work Phone: [phone] [place] [address] 01-03-2025 13:22-0400 Body mass index (BMI) [Ratio] 30.08 kg/m2 [facility] LEAD GENERATION SPECIALIST.CYCLE CONSULTANT Work Phone: [facility] 01-03-2025 13:22-0400 Body weight 82 kg Lyndseychristiano Lovells LEAD GENERATION SPECIALIST.CYCLE CONSULTANT Work Phone: [facility] 01-03-2025 13:22-0400 Diastolic blood pressure 77 mm[Hg] Lyndsey Acevedo LEAD GENERATION SPECIALIST.CYCLE CONSULTANT Work Phone: [facility] 01-03-2025 13:22-0400 Heart rate 77 /min [facility] LEAD GENERATION SPECIALIST.CYCLE CONSULTANT Work Phone: [facility] 01-03-2025 13:22-0400 Respiratory rate 16 /min Lyndsey Acevedo LEAD GENERATION SPECIALIST.CYCLE CONSULTANT Work Phone: [facility] 01-03-2025 13:22-0400 Systolic blood pressure 111 mm[Hg] Lyndseychristiano Lovells LEAD GENERATION SPECIALIST.CYCLE CONSULTANT Work Phone: [facility] 12-30-2024 21:52-0400 Body temperature 98.6 [degF] Dr. Gabriel Galvan MD Work Phone: [facility] 12-30-2024 21:52-0400 Diastolic blood pressure 72 mm[Hg] Dr. Gabriel Galvan MD Work Phone: [facility] 12-30-2024 21:52-0400 Heart rate 89 /min Dr. Gabriel Galvan MD Work Phone: [facility] 12-30-2024 21:52-0400 Respiratory rate 16 /min Dr. Gabriel Galvan MD Work Phone: 8(738)883-119651 [place] [address] 12-30-2024 21:52-0400 SaO2% (BldA) [Mass fraction] 95 % Dr. Gabriel Galvan MD Work Phone: [facility] 12-30-2024 21:52-0400 Systolic blood pressure 137 mm[Hg] Dr. Gabriel Galvan MD Work Phone: 0(206)114-901985 [place] [address] 12-30-2024 18:20-0400 Body height 154.[address] Gabriel Galvan MD Work Phone: 9(674)774-876185 [place] [address] 12-30-2024 18:20-0400 Body mass index (BMI) [Ratio] 34.9 kg/m2 Dr. Gabriel Galvan MD Work Phone: 5(850)561-587885 [place] [address] 12-30-2024 18:20-0400 Body weight 83.[address] Gabriel Galvan MD Work Phone: 9(011)841-480785 [place] [address] 12-20-2024 18:15-0400 Body temperature 97.4 [degF] Dr. Gabriel Galvan MD Work Phone: 3(299)205-577885 [place] [address] 12-20-2024 18:15-0400 Diastolic blood pressure 77 mm[Hg] Dr. Gabriel Galvan MD Work Phone: 9(093)466-770985 [place] [address] 12-20-2024 18:15-0400 Heart rate 73 /min Dr. Gabriel Galvan MD Work Phone: 4(155)156-747985 [place] [address] 12-20-2024 18:15-0400 Respiratory rate 18 /min Dr. Gabriel Galvan MD Work Phone: 4(959)873-059285 [place] [address] 12-20-2024 18:15-0400 SaO2% (BldA) [Mass fraction] 96 % Dr. Gabriel Galvan MD Work Phone: 9(236)533-759185 [place] [address] 12-20-2024 18:15-0400 Systolic blood pressure 149 mm[Hg] Dr. Gabriel Galvan MD Work Phone: 9(919)619-898985 [place] [address] 12-20-2024 18:00-0400 Inhaled oxygen flow rate 2 L/min Dr. Gabriel Galvan MD Work Phone: 3(096)800-782985 [place] [address] 12-20-2024 15:04-0400 Body mass index (BMI) [Ratio] 35.3 kg/m2 Dr. Gabriel Galvan MD Work Phone: 4(884)276-248885 [place] [address] 12-20-2024 15:04-0400 Body weight 84.[address] Gabriel Galvan MD Work Phone: 5(579)156-524685 [place] [address] 12-20-2024 15:01-0400 Body height 154.[address] Gabriel Galvan MD Work Phone: 0(400)451-465585 [place] [address] 11-05-2024 14:00-0500 Inhaled oxygen flow rate 2 L/min Dr. Gabriel Galvan MD Work Phone: 2(181)508-932985 [place] [address] 11-05-2024 03:51-0500 Body temperature 98 [degF] Dr. Gabriel Galvan MD Work Phone: 8(510)530-525685 [place] [address] 11-05-2024 03:51-0500 Diastolic blood pressure 73 mm[Hg] Dr. Gabriel Galvan MD Work Phone: 6(905)691-847985 [place] [address] 11-05-2024 03:51-0500 Heart rate 78 /min Dr. Gabriel Galvan MD Work Phone: 0(982)779-413585 [place] [address] 11-05-2024 03:51-0500 Respiratory rate 16 /min Dr. Gabriel Galvan MD Work Phone: 8(536)241-311785 [place] [address] 11-05-2024 03:51-0500 SaO2% (BldA) [Mass fraction] 99 % Dr. Gabriel Galvan MD Work Phone: 5(620)411-655885 [place] [address] 11-05-2024 03:51-0500 Systolic blood pressure 126 mm[Hg] Dr. Gabriel Galvan MD Work Phone: 5(895)696-587185 [place] [address] 11-04-2024 22:45-0500 Body mass index (BMI) [Ratio] 37.5 kg/m2 Dr. Gabriel Galvan MD Work Phone: 9(793)088-502885 [place] [address] 11-04-2024 22:45-0500 Body weight 90.[address] Gabriel Galvan MD Work Phone: 0(215)364-632485 [place] [address] 10-04-2024 09:52-0500 Body mass index (BMI) [Ratio] 36.8 kg/m2 Dr. Gabriel Galvan MD Work Phone: 6(449)805-448785 [place] [address] 10-04-2024 09:52-0500 Body weight 88.[address] Gabriel Galvan MD Work Phone: 1(938)823-966585 [place] [address] 10-04-2024 09:52-0500 Diastolic blood pressure 92 mm[Hg] Dr. Gabriel Galvan MD Work Phone: 7(364)733-281785 [place] [address] 10-04-2024 09:52-0500 Heart rate 76 /min Dr. Gabriel Galvan MD Work Phone: 4(640)876-001585 [place] [address] 10-04-2024 09:52-0500 Respiratory rate 18 /min Dr. Gabriel Galvan MD Work Phone: 3(277)044-631585 [place] [address] 10-04-2024 09:52-0500 SaO2% (BldA) [Mass fraction] 93 % Dr. Gabriel Galvan MD Work Phone: 3(376)729-292485 [place] [address] 10-04-2024 09:52-0500 Systolic blood pressure 143 mm[Hg] Dr. Gabriel Galvan MD Work Phone: 7(386)677-320185 [place] [address] 09-30-2024 08:32-0500 Inhaled oxygen flow rate 2 L/min Dr. Gabriel Galvan MD Work Phone: 8(272)613-979885 [place] [address] 09-30-2024 08:28-0500 Body temperature 98.2 [degF] Dr. Gabriel Galvan MD Work Phone: 8(556)168-736985 [place] [address] 09-30-2024 08:28-0500 Diastolic blood pressure 84 mm[Hg] Dr. Gabriel Galvan MD Work Phone: 6(800)320-667685 [place] [address] 09-30-2024 08:28-0500 Heart rate 81 /min Dr. Gabriel Galvan MD Work Phone: 4(835)159-497985 [place] [address] 09-30-2024 08:28-0500 Respiratory rate 18 /min Dr. Gabriel Galvan MD Work Phone: 0(676)653-301585 [place] [address] 09-30-2024 08:28-0500 SaO2% (BldA) [Mass fraction] 94 % Dr. Gabriel Galvan MD Work Phone: [facility] 09-30-2024 08:28-0500 Systolic blood pressure 138 mm[Hg] Dr. Gabriel Galvan MD Work Phone: [facility] 09-30-2024 05:26-0500 Body mass index (BMI) [Ratio] 36.3 kg/m2 Dr. Gabriel Galvan MD Work Phone: [facility] 09-30-2024 05:26-0500 Body weight 87.[address] Gabriel Galvan MD Work Phone: [facility] 09-14-2024 15:25-0500 Body mass index (BMI) [Ratio] 31.22 kg/m2 Gabriel Galvan MD Work Phone: [facility] 09-14-2024 15:25-0500 Body temperature 97.59 [degF] Gabriel Galvan MD Work Phone: [facility] 09-14-2024 15:25-0500 Body weight 85.1 kg Gabriel Galvan MD Work Phone: [facility] 09-14-2024 15:25-0500 Diastolic blood pressure 72 mm[Hg] Gabriel Galvan MD Work Phone: [facility] 09-14-2024 15:25-0500 Heart rate 82 /min Gabriel Galvan MD Work Phone: [facility] 09-14-2024 15:25-0500 Respiratory rate 16 /min Gabriel Galvan MD Work Phone: [facility] 09-14-2024 15:25-0500 SaO2% (BldA) [Mass fraction] 96 % Gabriel Galvan MD Work Phone: [facility] 09-14-2024 15:25-0500 Systolic blood pressure 124 mm[Hg] Gabriel Galvan MD Work Phone: [facility] 08-26-2024 17:12-0500 Body mass index (BMI) [Ratio] 32.1 kg/m2 Ryanne Negro APRN.PILOT CAPTAIN Work Phone: [facility] 08-26-2024 17:12-0500 Body temperature 99.61 [degF] Ryanne Negro APRN.PILOT CAPTAIN Work Phone: [facility] 08-26-2024 17:12-0500 Body weight 87.5 kg Ryanne Negro APRN.PILOT CAPTAIN Work Phone: [facility] 08-26-2024 17:12-0500 Diastolic blood pressure 85 mm[Hg] Ryanne Negro APRN.PILOT CAPTAIN Work Phone: [facility] 08-26-2024 17:12-0500 Heart rate 87 /min Ryanne Negro APRN.PILOT CAPTAIN Work Phone: [facility] 08-26-2024 17:12-0500 Respiratory rate 24 /min Ryanne Negro APRN.PILOT CAPTAIN Work Phone: [facility] 08-26-2024 17:12-0500 SaO2% (BldA) [Mass fraction] 94 % Ryanne Negro APRN.PILOT CAPTAIN Work Phone: [facility] 08-26-2024 17:12-0500 Systolic blood pressure 136 mm[Hg] Ryanne Negro APRN.PILOT CAPTAIN Work Phone: [facility] 06-17-2024 14:53-0400 Body mass index (BMI) [Ratio] 31.55 kg/m2 Chucky Zepeda APRN.PILOT CAPTAIN Work Phone: [facility] 06-17-2024 14:53-0400 Body temperature 97.81 [degF] Chucky Zepeda APRN.PILOT CAPTAIN Work Phone: [facility] 06-17-2024 14:53-0400 Body weight 86 kg Chucky Zepeda APRN.PILOT CAPTAIN Work Phone: [facility] 06-17-2024 14:53-0400 Diastolic blood pressure 92 mm[Hg] Chucky Zepeda APRN.PILOT CAPTAIN Work Phone: [facility] 06-17-2024 14:53-0400 Heart rate 89 /min Chucky Pendlebury LEAD GENERATION SPECIALIST.PILOT CAPTAIN Work Phone: [facility] 06-17-2024 14:53-0400 Respiratory rate 20 /min Chucky Cherellebury LEAD GENERATION SPECIALIST.PILOT CAPTAIN Work Phone: [facility] 06-17-2024 14:53-0400 SaO2% (BldA) [Mass fraction] 95 % Chucky Keshalebury LEAD GENERATION SPECIALIST.PILOT CAPTAIN Work Phone: [facility] 06-17-2024 14:53-0400 Systolic blood pressure 140 mm[Hg] Chucky Pendlebury LEAD GENERATION SPECIALIST.PILOT CAPTAIN Work Phone: [facility] 05-30-2024 12:52-0400 Diastolic blood pressure 80 mm[Hg] Nora Mahendra LEAD GENERATION SPECIALIST.PILOT CAPTAIN Work Phone: [facility] 05-30-2024 12:52-0400 Systolic blood pressure 112 mm[Hg] Nora Mahendra LEAD GENERATION SPECIALIST.PILOT CAPTAIN Work Phone: [facility] 05-30-2024 12:49-0400 Body mass index (BMI) [Ratio] 31.73 kg/m2 Nora Mahendra LEAD GENERATION SPECIALIST.PILOT CAPTAIN Work Phone: [facility] 05-30-2024 12:49-0400 Body weight 86.5 kg Nora Mahendra LEAD GENERATION SPECIALIST.PILOT CAPTAIN Work Phone: [facility] 05-30-2024 12:49-0400 Heart rate 69 /min Nora Mahendra LEAD GENERATION SPECIALIST.PILOT CAPTAIN Work Phone: [facility] 05-30-2024 12:49-0400 SaO2% (BldA) [Mass fraction] 93 % Nora Mahendra LEAD GENERATION SPECIALIST.PILOT CAPTAIN Work Phone: [facility] 04-25-2024 14:34-0400 Body height 165.1 cm Darrell Tejada MD Work Phone: [facility] 04-25-2024 14:34-0400 Body mass index (BMI) [Ratio] 32.28 kg/m2 Darrell Tejada MD Work Phone: [facility] 04-25-2024 14:34-0400 Body temperature 97.81 [degF] Darrell Tejada MD Work Phone: [facility] 04-25-2024 14:34-0400 Body weight 88 kg Darrell Tejada MD Work Phone: [facility] 04-25-2024 14:34-0400 Diastolic blood pressure 72 mm[Hg] Darrell Tejada MD Work Phone: [facility] 04-25-2024 14:34-0400 Heart rate 83 /min Darrell Tejada MD Work Phone: [facility] 04-25-2024 14:34-0400 SaO2% (BldA) [Mass fraction] 100 % Darrell Tejada MD Work Phone: [facility] 04-25-2024 14:34-0400 Systolic blood pressure 100 mm[Hg] Darrell Tejada MD Work Phone: [facility] 04-11-2024 13:56-0400 Body mass index (BMI) [Ratio] 32.43 kg/m2 Nora Mahendra LEAD GENERATION SPECIALIST.PILOT CAPTAIN Work Phone: [facility] 04-11-2024 13:56-0400 Body weight 88.4 kg Nora Mahendra LEAD GENERATION SPECIALIST.PILOT CAPTAIN Work Phone: [facility] 04-11-2024 13:56-0400 Diastolic blood pressure 86 mm[Hg] Nora Mahendra LEAD GENERATION SPECIALIST.PILOT CAPTAIN Work Phone: [facility] 04-11-2024 13:56-0400 Heart rate 88 /min Nora Mahendra LEAD GENERATION SPECIALIST.PILOT CAPTAIN Work Phone: [facility] 04-11-2024 13:56-0400 SaO2% (BldA) [Mass fraction] 93 % Nora Mahendra LEAD GENERATION SPECIALIST.PILOT CAPTAIN Work Phone: [facility] 04-11-2024 13:56-0400 Systolic blood pressure 118 mm[Hg] Nora Mahendra LEAD GENERATION SPECIALIST.PILOT CAPTAIN Work Phone: [facility] 03-14-2024 12:06-0400 Body mass index (BMI) [Ratio] 32.62 kg/m2 Nora Mahendra LEAD GENERATION SPECIALIST.PILOT CAPTAIN Work Phone: [facility] 03-14-2024 12:06-0400 Body weight 88.91 kg Nora Mahendra LEAD GENERATION SPECIALIST.PILOT CAPTAIN Work Phone: [facility] 03-14-2024 12:06-0400 Diastolic blood pressure 74 mm[Hg] Nora Mahendra LEAD GENERATION SPECIALIST.PILOT CAPTAIN Work Phone: [facility] 03-14-2024 12:06-0400 Heart rate 112 /min Nora Mahendra LEAD GENERATION SPECIALIST.PILOT CAPTAIN Work Phone: [facility] 03-14-2024 12:06-0400 SaO2% (BldA) [Mass fraction] 90 % Nora Mahendra LEAD GENERATION SPECIALIST.PILOT CAPTAIN Work Phone: [facility] 03-14-2024 12:06-0400 Systolic blood pressure 114 mm[Hg] Nora Mahendra LEAD GENERATION SPECIALIST.PILOT CAPTAIN Work Phone: [facility] 12-29-2023 13:00-0400 Diastolic blood pressure 91 mm[Hg] APRON MAN-C Nora Mahendra [facility] 12-29-2023 13:00-0400 Heart rate 81 /min APRON MAN-C Nora Mahendra [facility] 12-29-2023 13:00-0400 Respiratory rate 20 /min APRON MAN-C Nora Mahendra [facility] 12-29-2023 13:00-0400 SaO2% (BldA) [Mass fraction] 93 % APRON MAN-C Nora Mahendra [facility] 12-29-2023 13:00-0400 Systolic blood pressure 160 mm[Hg] APRON MAN-C Nora Mahendra [facility] 12-29-2023 09:11-0400 Body mass index (BMI) [Ratio] 32.5 kg/m2 APRON MAN-C Nora Mahendra [facility] 12-29-2023 09:11-0400 Body weight 94.2 kg APRON MAN-C Nora Mahendra [facility] 12-29-2023 08:54-0400 Body height 170.18 cm APRON MAN-C Nora Mahendra [facility] 12-29-2023 08:54-0400 Body temperature 97.6 [degF] FATMATA Crespo [facility] 12-20-2023 03:05-0400 Body temperature 98.24 [degF] DR MERLINE CHRISTENSEN DO [place] 12-20-2023 03:05-0400 Diastolic Blood Pressure Non-Invasive 54 mm[Hg] DR MERLINE CHRISTENSEN DO [place] 12-20-2023 03:05-0400 Heart rate 74 /min DR MERLINE CHRISTENSEN DO [place] 12-20-2023 03:05-0400 Respiratory rate 20 /min DR MERLINE CHRISTENSEN DO [place] 12-20-2023 03:05-0400 Systolic Blood Pressure Non-Invasive 94 mm[Hg] DR MERLINE CHRISTENSEN DO [place] 12-20-2023 02:03-0400 Diastolic Blood Pressure Non-Invasive 69 mm[Hg] DR MERLINE CHRISTENSEN DO [place] 12-20-2023 02:03-0400 Heart rate 88 /min DR MERLINE CHRISTENSEN DO [place] 12-20-2023 02:03-0400 Respiratory rate 21 /min DR MERLINE CHRISTENSEN DO [place] 12-20-2023 02:03-0400 Systolic Blood Pressure Non-Invasive 104 mm[Hg] DR MERLINE CHRISTENSEN DO [place] 12-20-2023 01:31-0400 Diastolic Blood Pressure Non-Invasive 66 mm[Hg] DR MERLINE CHRISTENSEN DO [place] 12-20-2023 01:31-0400 Heart rate 86 /min DR MERLINE CHRISTENSEN DO [place] 12-20-2023 01:31-0400 Respiratory rate 21 /min DR MERLINE CHRISTENSEN DO [place] 12-20-2023 01:31-0400 Systolic Blood Pressure Non-Invasive 116 mm[Hg] DR MERLINE CHRISTENSEN DO [place] 12-20-2023 00:19-0400 Reason For Taking VItal Signs DR MERLINE CHRISTENSEN DO [place] 12-19-2023 22:46-0400 Heart rate 102 /min DR MERLINE CHRISTENSEN DO [place] 12-19-2023 22:10-0400 Heart rate 132 /min DR MERLINE CHRISTENSEN DO [place] 12-19-2023 21:18-0400 Body temperature 98.24 [degF] DR MERLINE CHRISTENSEN DO [place] 11-30-2023 12:00-0400 Body temperature 98.7 [degF] Dr. Gabriel Galvan Work Phone: [facility] 11-30-2023 12:00-0400 Diastolic blood pressure 97 mm[Hg] Dr. Gabriel Galvan Work Phone: [facility] 11-30-2023 12:00-0400 Heart rate 77 /min Dr. Gabriel Galvan Work Phone: [facility] 11-30-2023 12:00-0400 Respiratory rate 18 /min Dr. Gabriel Galvan Work Phone: [facility] 11-30-2023 12:00-0400 SaO2% (BldA) [Mass fraction] 94 % Dr. Gabriel Glavan Work Phone: [facility] 11-30-2023 12:00-0400 Systolic blood pressure 166 mm[Hg] Dr. Gabriel Galvan Work Phone: [facility] 11-30-2023 09:35-0400 Body height 170.[address] Gabriel Galvan Work Phone: [facility] 11-30-2023 09:35-0400 Body mass index (BMI) [Ratio] 33.7 kg/m2 Dr. Gabriel Galvan Work Phone: [facility] 11-30-2023 09:35-0400 Body weight 97.[address] Gabriel Galvan Work Phone: [facility] 11-25-2023 16:54-0400 Body mass index (BMI) [Ratio] 36.56 kg/m2 Gabriel Galvan MD Work Phone: [facility] 11-25-2023 16:54-0400 Body weight 96.62 kg Gabriel Galvan MD Work Phone: [facility] 11-25-2023 16:54-0400 Diastolic blood pressure 86 mm[Hg] Gabirel Galvan MD Work Phone: [facility] 11-25-2023 16:54-0400 Heart rate 78 /min Gabriel Galvan MD Work Phone: [facility] 11-25-2023 16:54-0400 Respiratory rate 16 /min Gabriel Galvan MD Work Phone: [facility] 11-25-2023 16:54-0400 Systolic blood pressure 124 mm[Hg] Gabriel Galvan MD Work Phone: [facility] 09-29-2023 21:32-0500 Diastolic blood pressure 80 mm[Hg] Dr. Rakesh Martinez Work Phone: [facility] 09-29-2023 21:32-0500 Heart rate 70 /min Dr. Rakesh Martinez Work Phone: [facility] 09-29-2023 21:32-0500 Respiratory rate 16 /min Dr. Rakesh Martinez Work Phone: [facility] 09-29-2023 21:32-0500 SaO2% (BldA) [Mass fraction] 97 % Dr. Rakesh Martinez Work Phone: [facility] 09-29-2023 21:32-0500 Systolic blood pressure 163 mm[Hg] Dr. Rakesh Martinez Work Phone: 8(171)431-959473 [place] [address] 09-29-2023 17:45-0500 Body height 167.[address] Rakesh Martinez Work Phone: 1(362)454-504173 [place] [address] 09-29-2023 17:45-0500 Body mass index (BMI) [Ratio] 35.2 kg/m2 Dr. Rakesh Martinez Work Phone: 0(210)907-076873 [place] [address] 09-29-2023 17:45-0500 Body temperature 97.6 [degF] Dr. Rakesh Martinez Work Phone: 9(525)626-898873 [place] [address] 09-29-2023 17:45-0500 Body weight 98.[address] Rakesh Martinez Work Phone: 3(016)358-848373 [place] [address] 09-28-2023 10:40-0500 Body temperature 97.1 [degF] Dr. Rakesh Martinez Work Phone: 6(764)996-601573 [place] [address] 09-28-2023 10:40-0500 Diastolic blood pressure 56 mm[Hg] Dr. Rakesh Martinez Work Phone: 7(135)910-485673 [place] [address] 09-28-2023 10:40-0500 Heart rate 64 /min Dr. Rakesh Martinez Work Phone: 2(597)035-135473 [place] [address] 09-28-2023 10:40-0500 Respiratory rate 16 /min Dr. Rakesh Martinez Work Phone: [facility] 09-28-2023 10:40-0500 SaO2% (BldA) [Mass fraction] 94 % Dr. Rakesh Martinez Work Phone: 1(960)736-675173 [place] [address] 09-28-2023 10:40-0500 Systolic blood pressure 97 mm[Hg] Dr. Rakesh Martinez Work Phone: 0(180)999-164473 [place] [address] 09-28-2023 10:35-0500 Inhaled oxygen flow rate 2 L/min Dr. Rakesh Martinez Work Phone: 5(718)217-410473 [place] [address] 09-28-2023 09:14-0500 Body height 167.[address] Rakesh Martinez Work Phone: 4(789)487-723773 [place] [address] 09-28-2023 09:14-0500 Body mass index (BMI) [Ratio] 34.1 kg/m2 Dr. Rakesh Martinez Work Phone: 0(779)642-526973 [place] [address] 09-28-2023 09:14-0500 Body weight [address] Rakesh Martinez Work Phone: 0(451)085-167373 [place] [address] 09-05-2023 23:59-0500 Diastolic blood pressure 81 mm[Hg] Dr. Gabriel Galvan Work Phone: 5(427)100-553151 [place] [address] 09-05-2023 23:59-0500 Heart rate 86 /min Dr. Gabriel Galvan Work Phone: 4(302)603-038051 [place] [address] 09-05-2023 23:59-0500 Respiratory rate 16 /min Dr. Gabriel Galvan Work Phone: 0(367)849-746851 [place] [address] 09-05-2023 23:59-0500 SaO2% (BldA) [Mass fraction] 94 % Dr. Gabriel Galvan Work Phone: [facility] 09-05-2023 23:59-0500 Systolic blood pressure 156 mm[Hg] Dr. Gabriel Galvan Work Phone: 0(240)291-856351 [place] [address] 09-05-2023 18:41-0500 Body height 167.[address] Gabriel Galvan Work Phone: 5(253)452-787051 [place] [address] 09-05-2023 18:41-0500 Body temperature 98.4 [degF] Dr. Gabriel Galvan Work Phone: 2(439)678-716351 [place] [address] 07-29-2023 20:00-0500 Diastolic blood pressure 98 mm[Hg] Dr. Gabriel Galvan Work Phone: 2(474)025-331351 [place] [address] 07-29-2023 20:00-0500 Heart rate 86 /min Dr. Gabriel Galvan Work Phone: 4(568)916-357385 [place] [address] 07-29-2023 20:00-0500 Respiratory rate 16 /min Dr. Gabriel Galvan Work Phone: 6(548)948-617685 [place] [address] 07-29-2023 20:00-0500 SaO2% (BldA) [Mass fraction] 97 % Dr. Gabriel Galvan Work Phone: 8(783)672-311285 [place] [address] 07-29-2023 20:00-0500 Systolic blood pressure 178 mm[Hg] Dr. Gabriel Galvan Work Phone: 0(524)373-524685 [place] [address] 07-29-2023 16:57-0500 Body height 167.[address] Gabriel Galvan Work Phone: 6(603)648-120385 [place] [address] 07-29-2023 16:57-0500 Body mass index (BMI) [Ratio] 32.3 kg/m2 Dr. Gabriel Galvan Work Phone: 1(562)518-738285 [place] [address] 07-29-2023 16:57-0500 Body temperature 97.6 [degF] Dr. Gabriel Galvan Work Phone: 3(711)713-220585 [place] [address] 07-29-2023 16:57-0500 Body weight 90.[address] Gabriel Galvan Work Phone: 7(048)336-008385 [place] [address] 07-28-2023 14:02-0500 Body temperature 99.4 [degF] Dr. Gabriel Galvan Work Phone: 4(285)351-157385 [place] [address] 07-28-2023 14:02-0500 Diastolic blood pressure 69 mm[Hg] Dr. Gabriel Galvan Work Phone: 6(582)671-413485 [place] [address] 07-28-2023 14:02-0500 Heart rate 65 /min Dr. Gabriel Galvan Work Phone: 7(325)723-439885 [place] [address] 07-28-2023 14:02-0500 Respiratory rate 18 /min Dr. Gabriel Galvan Work Phone: 1(112)830-741585 [place] [address] 07-28-2023 14:02-0500 SaO2% (BldA) [Mass fraction] 94 % Dr. Gabriel Galvan Work Phone: 0(696)022-143785 [place] [address] 07-28-2023 14:02-0500 Systolic blood pressure 134 mm[Hg] Dr. Gabriel Galvan Work Phone: 3(764)313-021685 [place] [address] 07-28-2023 13:30-0500 Inhaled oxygen flow rate 2 L/min Dr. Gabriel Galvan Work Phone: 3(827)752-080985 [place] [address] 07-28-2023 11:11-0500 Body height 165.[address] Gabriel Galvan Work Phone: 0(995)191-042085 [place] [address] 07-28-2023 11:11-0500 Body mass index (BMI) [Ratio] 37 kg/m2 Dr. Gabriel Galvan Work Phone: 8(303)487-370185 [place] [address] 07-28-2023 11:11-0500 Body weight [address] Gabriel Galvan Work Phone: 8(986)779-349285 [place] [address] 07-19-2023 23:10-0500 Body temperature 98 [degF] Dr. Gabriel Galvan Work Phone: 8(985)288-433085 [place] [address] 07-19-2023 23:10-0500 Diastolic blood pressure 78 mm[Hg] Dr. Gabriel Galvan Work Phone: 3(204)495-319485 [place] [address] 07-19-2023 23:10-0500 Heart rate 66 /min Dr. Gabriel Galvan Work Phone: 7(923)234-371685 [place] [address] 07-19-2023 23:10-0500 Respiratory rate 16 /min Dr. Gabriel Galvan Work Phone: 4(015)280-105885 [place] [address] 07-19-2023 23:10-0500 SaO2% (BldA) [Mass fraction] 98 % Dr. Gabriel Galvan Work Phone: 7(518)193-934985 [place] [address] 07-19-2023 23:10-0500 Systolic blood pressure 130 mm[Hg] Dr. Gabriel Galvan Work Phone: 7(128)966-857185 [place] [address] 07-19-2023 19:35-0500 Body height 167.[address] Gabriel Galvan Work Phone: 3(284)353-723985 [place] [address] 07-19-2023 19:35-0500 Body mass index (BMI) [Ratio] 33 kg/m2 Dr. Gabriel Galvan Work Phone: 7(627)868-270785 [place] [address] 07-19-2023 19:35-0500 Body weight 92.[address] Gabriel Galvan Work Phone: 2(704)123-367385 [place] [address] 07-16-2023 13:07-0500 Body mass index (BMI) [Ratio] 35.9 kg/m2 Dr. Gabriel Galvan Work Phone: 7(356)728-542685 [place] [address] 07-16-2023 13:07-0500 Body weight 97.[address] Gabriel Galvan Work Phone: 7(252)714-989285 [place] [address] 07-16-2023 13:07-0500 Diastolic blood pressure 84 mm[Hg] Dr. Gabriel Galvan Work Phone: 7(257)206-945085 [place] [address] 07-16-2023 13:07-0500 Heart rate 83 /min Dr. Gabriel Galvan Work Phone: 8(022)482-981585 [place] [address] 07-16-2023 13:07-0500 Respiratory rate 18 /min Dr. Gabriel Galvan Work Phone: 4(984)352-930085 [place] [address] 07-16-2023 13:07-0500 SaO2% (BldA) [Mass fraction] 92 % Dr. Gabriel Galvan Work Phone: 3(670)877-206085 [place] [address] 07-16-2023 13:07-0500 Systolic blood pressure 129 mm[Hg] Dr. Gabriel Galvan Work Phone: 2(398)024-274585 [place] [address] 06-24-2023 12:28-0400 Diastolic blood pressure 58 mm[Hg] Dr. Gabriel Galvan Work Phone: 9(725)607-461651 [place] [address] 06-24-2023 12:28-0400 Heart rate 78 /min Dr. Gabriel Galvan Work Phone: 4(992)288-131385 [place] [address] 06-24-2023 12:28-0400 Respiratory rate 18 /min Dr. Gabriel Galvan Work Phone: 4(352)623-068785 [place] [address] 06-24-2023 12:28-0400 SaO2% (BldA) [Mass fraction] 95 % Dr. Gabriel Galvan Work Phone: 2(240)597-952085 [place] [address] 06-24-2023 12:28-0400 Systolic blood pressure 87 mm[Hg] Dr. Gabriel Galvan Work Phone: 9(238)577-108485 [place] [address] 06-24-2023 12:25-0400 Body temperature 96.6 [degF] Dr. Gabriel Galvan Work Phone: 5(204)786-705085 [place] [address] 06-24-2023 11:23-0400 Body height 165.[address] Gabriel Galvan Work Phone: 4(389)840-547085 [place] [address] 06-24-2023 11:23-0400 Body mass index (BMI) [Ratio] 35.4 kg/m2 Dr. Gabriel Galvan Work Phone: 9(191)309-077885 [place] [address] 06-24-2023 11:23-0400 Body weight 96.[address] Gabriel Galvan Work Phone: 8(974)643-278285 [place] [address] 06-23-2023 18:09-0400 Diastolic blood pressure 69 mm[Hg] Dr. Gabriel Galvan Work Phone: 0(137)476-636785 [place] [address] 06-23-2023 18:09-0400 Heart rate 71 /min Dr. Gabriel Galvan Work Phone: 5(814)323-738685 [place] [address] 06-23-2023 18:09-0400 Respiratory rate 14 /min Dr. Gabriel Galvan Work Phone: 9(365)750-087885 [place] [address] 06-23-2023 18:09-0400 SaO2% (BldA) [Mass fraction] 98 % Dr. Gabriel Galvan Work Phone: 9(063)344-387351 [place] [address] 06-23-2023 18:09-0400 Systolic blood pressure 134 mm[Hg] Dr. Gabriel Galvan Work Phone: 2(350)792-846885 [place] [address] 06-23-2023 16:01-0400 Body height 165.[address] Gabriel Galvan Work Phone: 8(149)030-716785 [place] [address] 06-23-2023 16:01-0400 Body mass index (BMI) [Ratio] 35.4 kg/m2 Dr. Gabriel Galvan Work Phone: 3(837)948-794985 [place] [address] 06-23-2023 16:01-0400 Body temperature 97.8 [degF] Dr. Gabriel Galvan Work Phone: 2(473)551-738285 [place] [address] 06-23-2023 16:01-0400 Body weight 96.[address] Gabriel Galvan Work Phone: 6(646)640-526485 [place] [address] 06-01-2023 21:15-0400 Body height 165.[address] Gabriel Galvan Work Phone: 2(620)799-081485 [place] [address] 06-01-2023 21:15-0400 Body mass index (BMI) [Ratio] 37.3 kg/m2 Dr. Gabriel Galvan Work Phone: 7(143)312-393685 [place] [address] 06-01-2023 21:15-0400 Body temperature 97.5 [degF] Dr. Gabriel Galvan Work Phone: 3(874)283-301385 [place] [address] 06-01-2023 21:15-0400 Body weight 101.[address] Gabriel Galvan Work Phone: 3(479)367-330485 [place] [address] 06-01-2023 21:15-0400 Diastolic blood pressure 78 mm[Hg] Dr. Gabriel Galvan Work Phone: 0(650)489-971285 [place] [address] 06-01-2023 21:15-0400 Heart rate 79 /min Dr. Gabriel Galvan Work Phone: 9(837)984-275085 [place] [address] 06-01-2023 21:15-0400 Respiratory rate 16 /min Dr. Gabriel Galvan Work Phone: [facility] 06-01-2023 21:15-0400 SaO2% (BldA) [Mass fraction] 96 % Dr. Gabriel Galvan Work Phone: [facility] 06-01-2023 21:15-0400 Systolic blood pressure 152 mm[Hg] Dr. Gabriel Galvan Work Phone: [facility] 03-04-2023 11:03-0400 Body temperature 97.8 [degF] Dr. Gabriel Galvan Work Phone: 1(751)736-209785 [place] [address] 03-04-2023 11:03-0400 Body weight 90.[address] Gabriel Galvan Work Phone: 4(173)897-314385 [place] [address] 03-04-2023 11:03-0400 Diastolic blood pressure 86 mm[Hg] Dr. Gabriel Galvan Work Phone: [facility] 03-04-2023 11:03-0400 Heart rate 82 /min Dr. Gabriel Galvan Work Phone: 9(446)678-043051 [place] [address] 03-04-2023 11:03-0400 Respiratory rate 18 /min Dr. Gabriel Galvan Work Phone: 7(585)354-234651 [place] [address] 03-04-2023 11:03-0400 SaO2% (BldA) [Mass fraction] 95 % Dr. Gabriel Galvan Work Phone: [facility] 03-04-2023 11:03-0400 Systolic blood pressure 125 mm[Hg] Dr. Gabriel Galvan Work Phone: [facility] 02-17-2023 11:16-0400 Body height 165.[address] Clyde Serrano Work Phone: [facility] 02-17-2023 11:01-0400 Body mass index (BMI) [Ratio] 32.8 kg/m2 Dr. Clyde Serrano Work Phone: [facility] 02-17-2023 11:01-0400 Body weight 89.[address] Clyde Serrano Work Phone: 3(979)446-384364 [place] [address] 02-17-2023 11:01-0400 Diastolic blood pressure 81 mm[Hg] Dr. Clyde Serrano Work Phone: 8(165)110-261534 [place] [address] 02-17-2023 11:01-0400 Heart rate 72 /min Dr. Clyde Serrano Work Phone: 9(629)659-565134 [place] [address] 02-17-2023 11:01-0400 Respiratory rate 20 /min Dr. Clyde Serrano Work Phone: 2(697)606-314534 [place] [address] 02-17-2023 11:01-0400 SaO2% (BldA) [Mass fraction] 94 % Dr. Clyde Serrano Work Phone: 2(387)885-426734 [place] [address] 02-17-2023 11:01-0400 Systolic blood pressure 121 mm[Hg] Dr. Clyde Serrano Work Phone: 1(762)351-982434 [place] [address] 01-16-2023 11:45-0400 Diastolic blood pressure 82 mm[Hg] Dr. Clyde Serrano Work Phone: 6(135)408-304834 [place] [address] 01-16-2023 11:45-0400 Systolic blood pressure 141 mm[Hg] Dr. Clyde Serrano Work Phone: 8(113)787-832234 [place] [address] 01-16-2023 10:30-0400 SaO2% (BldA) [Mass fraction] 97 % Dr. Clyde Serrano Work Phone: 0(684)898-841134 [place] [address] 01-16-2023 07:31-0400 Body height 165.[address] Clyde Serrano Work Phone: 9(885)652-210834 [place] [address] 01-16-2023 07:31-0400 Body mass index (BMI) [Ratio] 32 kg/m2 Dr. Clyde Serrano Work Phone: 9(588)497-800034 [place] [address] 01-16-2023 07:31-0400 Body temperature 98.1 [degF] Dr. Clyde Serrano Work Phone: 0(790)129-847034 [place] [address] 01-16-2023 07:31-0400 Body weight 87.[address] Clyde Serrano Work Phone: [facility] 01-16-2023 07:31-0400 Heart rate 85 /min Dr. Clyde Serrano Work Phone: [facility] 01-16-2023 07:31-0400 Respiratory rate 16 /min Dr. Clyde Serrano Work Phone: [facility] 01-14-2023 18:27-0400 Diastolic blood pressure 77 mm[Hg] Dr. Sudhir Ochoa Work Phone: [facility] 01-14-2023 18:27-0400 Heart rate 65 /min Dr. Sudhir Ochoa Work Phone: 7(178)010-555083 [address] 01-14-2023 18:27-0400 Respiratory rate 18 /min Dr. Sudhir Ochoa Work Phone: 3(641)047-479285 [place] [address] 01-14-2023 18:27-0400 SaO2% (BldA) [Mass fraction] 98 % Dr. Sudhir Ochoa Work Phone: [facility] 01-14-2023 18:27-0400 Systolic blood pressure 139 mm[Hg] Dr. Sudhir Ochoa Work Phone: [facility] 01-14-2023 13:22-0400 Body height 165.[address] Sudhir Ochoa Work Phone: [facility] 01-14-2023 13:22-0400 Body mass index (BMI) [Ratio] 30.6 kg/m2 Dr. Sudhir Ochoa Work Phone: [facility] 01-14-2023 13:22-0400 Body temperature 97.8 [degF] Dr. Sudhir Ochoa Work Phone: [facility] 01-14-2023 13:22-0400 Body weight 83.[address] Sudhir Ochoa Work Phone: [facility] 01-13-2023 14:18-0400 Body weight 83.01 kg Lyndsey Acevedo LEAD GENERATION SPECIALIST.CYCLE CONSULTANT Work Phone: [facility] 01-13-2023 14:18-0400 Diastolic blood pressure 84 mm[Hg] Lyndsey Acevedo LEAD GENERATION SPECIALIST.CYCLE CONSULTANT Work Phone: [facility] 01-13-2023 14:18-0400 Heart rate 83 /min Lyndsey Acevedo LEAD GENERATION SPECIALIST.CYCLE CONSULTANT Work Phone: [facility] 01-13-2023 14:18-0400 Respiratory rate 16 /min Lyndsey Acevedo LEAD GENERATION SPECIALIST.CYCLE CONSULTANT Work Phone: [facility] 01-13-2023 14:18-0400 SaO2% (BldA) [Mass fraction] 97 % Lyndsey Acevedo LEAD GENERATION SPECIALIST.CYCLE CONSULTANT Work Phone: [facility] 01-13-2023 14:18-0400 Systolic blood pressure 118 mm[Hg] Lyndsey Acevedo LEAD GENERATION SPECIALIST.CYCLE CONSULTANT Work Phone: [facility] 01-13-2023 00:43-0400 Diastolic blood pressure 69 mm[Hg] Dr. Sudhir Ochoa Work Phone: [facility] 01-13-2023 00:43-0400 Heart rate 81 /min Dr. Sudhir Ochoa Work Phone: [facility] 01-13-2023 00:43-0400 Respiratory rate 15 /min Dr. Sudhir Ochoa Work Phone: [facility] 01-13-2023 00:43-0400 SaO2% (BldA) [Mass fraction] 96 % Dr. Sudihr Ochoa Work Phone: [facility] 01-13-2023 00:43-0400 Systolic blood pressure 143 mm[Hg] Dr. Sudhir cOhoa Work Phone: [facility] 01-12-2023 20:03-0400 Body height 165.[address] Sudhir Ochoa Work Phone: [facility] 01-12-2023 20:03-0400 Body mass index (BMI) [Ratio] 30.9 kg/m2 Dr. Sudhir Ochoa Work Phone: 4(787)682-960785 [place] [address] 01-12-2023 20:03-0400 Body temperature 97.8 [degF] Dr. Sudhir Ochoa Work Phone: 9(853)065-520685 [place] [address] 01-12-2023 20:03-0400 Body weight 84.[address] Sudhir Ochoa Work Phone: 4(284)185-435885 [place] [address] 01-10-2023 15:48-0400 Diastolic blood pressure 69 mm[Hg] Dr. Sudhir Ochoa Work Phone: 9(503)810-088885 [place] [address] 01-10-2023 15:48-0400 Heart rate 76 /min Dr. Sudhir Ochoa Work Phone: 8(303)551-465885 [place] [address] 01-10-2023 15:48-0400 Respiratory rate 19 /min Dr. Sudhir Ochoa Work Phone: 9(061)423-598585 [place] [address] 01-10-2023 15:48-0400 SaO2% (BldA) [Mass fraction] 96 % Dr. Sudhir Ochoa Work Phone: 5(399)127-030585 [place] [address] 01-10-2023 15:48-0400 Systolic blood pressure 110 mm[Hg] Dr. Sudhir Ochoa Work Phone: 5(080)496-861485 [place] [address] 01-10-2023 13:04-0400 Body height 165.[address] Sudhir Ochoa Work Phone: 0(159)386-225385 [place] [address] 01-10-2023 13:04-0400 Body mass index (BMI) [Ratio] 28.3 kg/m2 Dr. Sudhir Ochoa Work Phone: 3(386)935-457185 [place] [address] 01-10-2023 13:04-0400 Body temperature 97.4 [degF] Dr. Sudhir Ochoa Work Phone: 9(130)993-022385 [place] [address] 01-10-2023 13:04-0400 Body weight 77.[address] Sudhir Ochoa Work Phone: 7(750)329-862085 [place] [address] 01-04-2023 15:00-0400 Body temperature 98.2 [degF] Dr. Sudhir Ochoa Work Phone: 1(767)842-115285 [place] [address] 01-04-2023 15:00-0400 Diastolic blood pressure 89 mm[Hg] Dr. Sudhir Ochoa Work Phone: 9(808)986-620385 [place] [address] 01-04-2023 15:00-0400 Heart rate 81 /min Dr. Sudhir Ochoa Work Phone: 3(729)672-557185 [place] [address] 01-04-2023 15:00-0400 Respiratory rate 16 /min Dr. Sudhir Ochoa Work Phone: 9(379)991-867485 [place] [address] 01-04-2023 15:00-0400 SaO2% (BldA) [Mass fraction] 95 % Dr. Sudhir Ochoa Work Phone: 5(799)210-542685 [place] [address] 01-04-2023 15:00-0400 Systolic blood pressure 156 mm[Hg] Dr. Sudhir Ochoa Work Phone: 9(637)306-611085 [place] [address] 01-04-2023 07:48-0400 Inhaled oxygen flow rate 2 L/min Dr. Sudhir Ochoa Work Phone: 5(604)886-124185 [place] [address] 01-04-2023 06:00-0400 Body mass index (BMI) [Ratio] 31.7 kg/m2 Dr. Sudhir Ochoa Work Phone: 4(604)772-093285 [place] [address] 01-04-2023 06:00-0400 Body weight 86.[address] Sudhir Ochoa Work Phone: 7(054)354-252685 [place] [address] 01-02-2023 12:39-0400 Body temperature 97.7 [degF] Dr. Sudhir Ochoa Work Phone: 7(990)063-438785 [place] [address] 01-02-2023 12:39-0400 Diastolic blood pressure 87 mm[Hg] Dr. Sudhir Ochoa Work Phone: 4(795)802-024785 [place] [address] 01-02-2023 12:39-0400 Heart rate 84 /min Dr. Sudhir Ochoa Work Phone: 0(102)294-513251 [place] [address] 01-02-2023 12:39-0400 Respiratory rate 26 /min Dr. Sudhir Ochoa Work Phone: 5(284)596-943585 [place] [address] 01-02-2023 12:39-0400 SaO2% (BldA) [Mass fraction] 94 % Dr. Sudhir Ochoa Work Phone: 6(324)230-750885 [place] [address] 01-02-2023 12:39-0400 Systolic blood pressure 136 mm[Hg] Dr. Sudhir Ochoa Work Phone: 4(004)834-238785 [place] [address] 01-02-2023 09:22-0400 Body height [address] Sudhir Ochoa Work Phone: 3(837)293-524285 [place] [address] 01-02-2023 09:22-0400 Body mass index (BMI) [Ratio] 31 kg/m2 Dr. Sudhir Ochoa Work Phone: 4(362)549-961885 [place] [address] 01-02-2023 09:22-0400 Body weight 87.[address] Sudhir Ochoa Work Phone: 8(245)190-826985 [place] [address] 09-30-2022 23:31-0500 Diastolic blood pressure 89 mm[Hg] Dr. Sudhir Ochoa Work Phone: 4(255)366-964585 [place] [address] 09-30-2022 23:31-0500 Heart rate 71 /min Dr. Sudhir Ochoa Work Phone: 6(730)290-905951 [place] [address] 09-30-2022 23:31-0500 Respiratory rate 15 /min Dr. Sudhir Ochoa Work Phone: 4(310)457-047285 [place] [address] 09-30-2022 23:31-0500 SaO2% (BldA) [Mass fraction] 96 % Dr. Sudhir Ochoa Work Phone: 4(826)104-438185 [place] [address] 09-30-2022 23:31-0500 Systolic blood pressure 130 mm[Hg] Dr. Sudhir Ochoa Work Phone: 1(374)527-433985 [place] [address] 09-30-2022 21:34-0500 Body height 167.[address] Sudhir Ochoa Work Phone: [facility] 09-30-2022 21:34-0500 Body mass index (BMI) [Ratio] 30.1 kg/m2 Dr. Sudhir Ochoa Work Phone: [facility] 09-30-2022 21:34-0500 Body temperature 97.5 [degF] Dr. Sudhir Ochoa Work Phone: [facility] 09-30-2022 21:34-0500 Body weight 84.[address] Sudhir Ochoa Work Phone: [facility] 09-23-2022 14:37-0500 Body height 162.6 cm Nora Mahendra LEAD GENERATION SPECIALIST.PILOT CAPTAIN Work Phone: [facility] 09-23-2022 14:37-0500 Body weight 83.01 kg Nora Mahendra LEAD GENERATION SPECIALIST.PILOT CAPTAIN Work Phone: [facility] 09-23-2022 14:37-0500 Diastolic blood pressure 60 mm[Hg] Nora Mahendra LEAD GENERATION SPECIALIST.PILOT CAPTAIN Work Phone: [facility] 09-23-2022 14:37-0500 Heart rate 58 /min Nora Mahendra LEAD GENERATION SPECIALIST.PILOT CAPTAIN Work Phone: [facility] 09-23-2022 14:37-0500 SaO2% (BldA) [Mass fraction] 92 % Nora Mahendra LEAD GENERATION SPECIALIST.PILOT CAPTAIN Work Phone: [facility] 09-23-2022 14:37-0500 Systolic blood pressure 108 mm[Hg] Nora Mahendra LEAD GENERATION SPECIALIST.PILOT CAPTAIN Work Phone: [facility] 09-17-2022 12:58-0500 Body height 167.[address] Sudhir Ochoa Work Phone: [facility] 09-17-2022 12:46-0500 Body mass index (BMI) [Ratio] 30.4 kg/m2 Dr. Sudhir Ochoa Work Phone: [facility] 09-17-2022 12:46-0500 Body temperature 99.3 [degF] Dr. Sudhir Ochoa Work Phone: 3(518)054-390851 [place] [address] 09-17-2022 12:46-0500 Body weight 85.[address] Sudhir Ochoa Work Phone: 5(714)501-643285 [place] [address] 09-17-2022 12:46-0500 Diastolic blood pressure 61 mm[Hg] Dr. Sudhir Ochoa Work Phone: 4(509)627-988285 [place] [address] 09-17-2022 12:46-0500 Heart rate 89 /min Dr. Sudhir Ochoa Work Phone: 8(951)392-052585 [place] [address] 09-17-2022 12:46-0500 Respiratory rate 20 /min Dr. Sudhir Ochoa Work Phone: 1(727)064-753285 [place] [address] 09-17-2022 12:46-0500 SaO2% (BldA) [Mass fraction] 95 % Dr. Sudhir Ochoa Work Phone: 6(277)065-551885 [place] [address] 09-17-2022 12:46-0500 Systolic blood pressure 91 mm[Hg] Dr. Sudhir Ochoa Work Phone: 7(971)480-909985 [place] [address] 09-02-2022 21:40-0500 Respiratory rate 18 /min Dr. Sudhir Ochoa Work Phone: 4(607)133-154485 [place] [address] 09-02-2022 19:08-0500 Body height 167.[address] Sudhir Ochoa Work Phone: 7(619)371-924585 [place] [address] Work Phone: 09-02-2022 19:08-0500 Body mass index (BMI) [Ratio] 29 kg/m2 Dr. Sudhir Ochoa Work Phone: 9(612)391-658085 [place] [address] 09-02-2022 19:08-0500 Body temperature 97.2 [degF] Dr. Sudhir Ochoa Work Phone: 4(316)212-950585 [place] [address] 09-02-2022 19:08-0500 Body weight 81.[address] Sudhir Ochoa Work Phone: 4(421)417-785185 [place] [address] 09-02-2022 19:08-0500 Diastolic blood pressure 100 mm[Hg] Dr. Sudhir Ochoa Work Phone: 1(024)288-069985 [place] [address] 09-02-2022 19:08-0500 Heart rate 84 /min Dr. Sudhir Ochoa Work Phone: 2(357)714-055585 [place] [address] 09-02-2022 19:08-0500 SaO2% (BldA) [Mass fraction] 97 % Dr. Sudhir Ochoa Work Phone: 7(929)150-468185 [place] [address] 09-02-2022 19:08-0500 Systolic blood pressure 140 mm[Hg] Dr. Sudhir Ochoa Work Phone: 5(105)516-213485 [place] [address] 08-30-2022 16:10-0500 Body temperature 98.6 [degF] Dr. Sudhir Ochoa Work Phone: 3(559)053-739185 [place] [address] 08-30-2022 16:10-0500 Diastolic blood pressure 78 mm[Hg] Dr. Sudhir Ochoa Work Phone: 8(241)077-632685 [place] [address] 08-30-2022 16:10-0500 Heart rate 78 /min Dr. Sudhir Ochoa Work Phone: 9(466)213-801285 [place] [address] 08-30-2022 16:10-0500 Respiratory rate 16 /min Dr. Sudhir Ochoa Work Phone: 4(118)680-795885 [place] [address] 08-30-2022 16:10-0500 SaO2% (BldA) [Mass fraction] 99 % Dr. Sudhir Ochoa Work Phone: 3(706)154-796085 [place] [address] 08-30-2022 16:10-0500 Systolic blood pressure 126 mm[Hg] Dr. Sudhir Ochoa Work Phone: 0(969)784-507785 [place] [address] 08-30-2022 13:03-0500 Body height 167.[address] Sudhir Ochoa Work Phone: 9(854)996-033785 [place] [address] Work Phone: 08-30-2022 13:03-0500 Body mass index (BMI) [Ratio] 30.2 kg/m2 Dr. Sudhir Ochoa Work Phone: 5(709)300-665551 [place] [address] 08-30-2022 13:03-0500 Body weight 84.[address] Sudhir Ochoa Work Phone: 2(660)309-016585 [place] [address] 08-23-2022 15:20-0500 Diastolic blood pressure 98 mm[Hg] Dr. Sudhir Ochoa Work Phone: 3(527)078-567885 [place] [address] 08-23-2022 15:20-0500 Heart rate 68 /min Dr. Sudhir Ochoa Work Phone: 0(844)159-123485 [place] [address] 08-23-2022 15:20-0500 Respiratory rate 16 /min Dr. Sudhir Ochoa Work Phone: 9(910)215-087285 [place] [address] 08-23-2022 15:20-0500 SaO2% (BldA) [Mass fraction] 99 % Dr. Sudhir Ochoa Work Phone: 2(795)796-142885 [place] [address] 08-23-2022 15:20-0500 Systolic blood pressure 132 mm[Hg] Dr. Sudhir Ochoa Work Phone: 1(669)447-608785 [place] [address] 08-23-2022 12:53-0500 Body temperature 98 [degF] Dr. Sudhir Ochoa Work Phone: 6(630)560-077885 [place] [address] 08-23-2022 11:18-0500 Body height 167.[address] Sudhir Ochoa Work Phone: 6(092)007-428185 [place] [address] Work Phone: 08-23-2022 11:18-0500 Body mass index (BMI) [Ratio] 32.5 kg/m2 Dr. Sudhir Ochoa Work Phone: 7(438)009-584285 [place] [address] 08-23-2022 11:18-0500 Body weight 91.[address] Sudhir Ochoa Work Phone: 8(913)310-502485 [place] [address] 08-11-2022 11:38-0500 Body height 167.[address] Sudhir Ochoa Work Phone: 2(119)994-098651 [place] [address] Work Phone: 08-11-2022 11:38-0500 Body weight 81.[address] Sudhir Ochoa Work Phone: 4(391)937-333785 [place] [address] 08-08-2022 23:52-0500 Diastolic blood pressure 82 mm[Hg] Dr. Sudhir Ochoa Work Phone: 4(850)294-896085 [place] [address] 08-08-2022 23:52-0500 Heart rate 80 /min Dr. Sudhir Ochoa Work Phone: 9(472)289-773385 [place] [address] 08-08-2022 23:52-0500 Respiratory rate 15 /min Dr. Sudhir Ochoa Work Phone: 0(791)239-556585 [place] [address] 08-08-2022 23:52-0500 SaO2% (BldA) [Mass fraction] 98 % Dr. Sudhir Ochoa Work Phone: 0(773)845-575385 [place] [address] 08-08-2022 23:52-0500 Systolic blood pressure 152 mm[Hg] Dr. Sudhir Ochoa Work Phone: 3(341)521-987485 [place] [address] 08-08-2022 20:06-0500 Body height 167.[address] Sudhir Ochoa Work Phone: 9(448)283-086885 [place] [address] Work Phone: 08-08-2022 20:06-0500 Body mass index (BMI) [Ratio] 30 kg/m2 Dr. Sudhir Ochoa Work Phone: 8(728)242-849385 [place] [address] 08-08-2022 20:06-0500 Body temperature 97.2 [degF] Dr. Sudhir Ochoa Work Phone: 4(247)033-420485 [place] [address] 08-08-2022 20:06-0500 Body weight 84.[address] Sudhir Ochoa Work Phone: 2(446)246-272785 [place] [address] 08-07-2022 08:56-0500 Body mass index (BMI) [Ratio] 29 kg/m2 Dr. Sudhir Ochoa Work Phone: [phone])[phone] [place] [address] 08-05-2022 15:26-0500 Body mass index (BMI) [Ratio] 29 kg/m2 Dr. Sudhir Ochoa Work Phone: [facility] 08-05-2022 15:26-0500 Body temperature 98 [degF] Dr. Sudhir Ochoa Work Phone: [facility] 08-05-2022 15:26-0500 Body weight 81.[address] Sudhir Ochoa Work Phone: [facility] 08-05-2022 15:26-0500 Diastolic blood pressure 88 mm[Hg] Dr. Sudhir Ochoa Work Phone: [facility] 08-05-2022 15:26-0500 Heart rate 101 /min Dr. Sudhir Ochoa Work Phone: [facility] 08-05-2022 15:26-0500 Respiratory rate 18 /min Dr. Sudhir Ochoa Work Phone: [facility] 08-05-2022 15:26-0500 SaO2% (BldA) [Mass fraction] 95 % Dr. Sudhir Ochoa Work Phone: [facility] 08-05-2022 15:26-0500 Systolic blood pressure 154 mm[Hg] Dr. Sudhir Ochoa Work Phone: [facility] 08-04-2022 05:07-0500 Diastolic blood pressure 88 mm[Hg] [facility] 08-04-2022 05:07-0500 Systolic blood pressure 158 mm[Hg] [facility] 08-04-2022 01:08-0500 Body height 167.64 cm [facility] Work Phone: 08-04-2022 01:08-0500 Body mass index (BMI) [Ratio] 29.3 kg/m2 [facility] 08-04-2022 01:08-0500 Body temperature 97.3 [degF] [facility] 08-04-2022 01:08-0500 Body weight 82.5 kg [facility] 08-04-2022 01:08-0500 Heart rate 91 /min [facility] 08-04-2022 01:08-0500 Respiratory rate 18 /min [facility] 08-04-2022 01:08-0500 SaO2% (BldA) [Mass fraction] 98 % [facility] 08-03-2022 00:33-0500 Diastolic blood pressure 87 mm[Hg] [facility] 08-03-2022 00:33-0500 Heart rate 77 /min [facility] 08-03-2022 00:33-0500 Respiratory rate 16 /min [facility] 08-03-2022 00:33-0500 SaO2% (BldA) [Mass fraction] 95 % [facility] 08-03-2022 00:33-0500 Systolic blood pressure 156 mm[Hg] [facility] 08-02-2022 20:35-0500 Body temperature 97.3 [degF] [facility] 08-02-2022 20:33-0500 Body mass index (BMI) [Ratio] 25.8 kg/m2 [facility] 08-02-2022 20:33-0500 Body weight 72.57 kg [facility] 06-29-2022 11:18-0400 Diastolic blood pressure 98 mm[Hg] [facility] 06-29-2022 11:18-0400 Heart rate 74 /min [facility] 06-29-2022 11:18-0400 SaO2% (BldA) [Mass fraction] 99 % [facility] 06-29-2022 11:18-0400 Systolic blood pressure 125 mm[Hg] [facility] 06-29-2022 10:17-0400 Respiratory rate 15 /min [facility] 06-29-2022 09:18-0400 Body height 168 cm [facility] Work Phone: 06-29-2022 09:18-0400 Body mass index (BMI) [Ratio] 29.9 kg/m2 [facility] 06-29-2022 09:18-0400 Body temperature 97.8 [degF] [facility] 06-29-2022 09:18-0400 Body weight 84.7 kg [facility] 06-09-2022 02:27-0400 Body temperature 98.2 [degF] [facility] 06-09-2022 02:27-0400 Diastolic blood pressure 89 mm[Hg] [facility] 06-09-2022 02:27-0400 Heart rate 74 /min [facility] 06-09-2022 02:27-0400 Respiratory rate 18 /min [facility] 06-09-2022 02:27-0400 SaO2% (BldA) [Mass fraction] 98 % [facility] 06-09-2022 02:27-0400 Systolic blood pressure 152 mm[Hg] [facility] 06-09-2022 00:12-0400 Body height 167.64 cm [facility] Work Phone: 06-09-2022 00:12-0400 Body mass index (BMI) [Ratio] 30.2 kg/m2 [facility] 06-09-2022 00:12-0400 Body weight 84.9 kg [facility] 06-04-2022 20:31-0400 Diastolic blood pressure 96 mm[Hg] [facility] 06-04-2022 20:31-0400 Heart rate 75 /min [facility] 06-04-2022 20:31-0400 Respiratory rate 15 /min [facility] 06-04-2022 20:31-0400 SaO2% (BldA) [Mass fraction] 98 % [facility] 06-04-2022 20:31-0400 Systolic blood pressure 157 mm[Hg] [facility] 06-04-2022 18:42-0400 Body height 167.64 cm [facility] Work Phone: 06-04-2022 18:42-0400 Body mass index (BMI) [Ratio] 29.8 kg/m2 [facility] 06-04-2022 18:42-0400 Body temperature 96.6 [degF] [facility] 06-04-2022 18:42-0400 Body weight 83.91 kg [facility] 02-26-2022 16:04-0400 Heart rate 76 /min [facility] Work Phone: 02-26-2022 16:04-0400 Respiratory rate 18 /min [facility] Work Phone: 02-26-2022 16:04-0400 SaO2% (BldA) [Mass fraction] 99 % [facility] Work Phone: 02-26-2022 12:17-0400 Body mass index (BMI) [Ratio] 25.8 kg/m2 [facility] Work Phone: 02-26-2022 12:17-0400 Body temperature 97.6 [degF] [facility] Work Phone: 02-26-2022 12:17-0400 Body weight 72.57 kg [facility] Work Phone: 02-26-2022 12:17-0400 Diastolic blood pressure 110 mm[Hg] [facility] Work Phone: 02-26-2022 12:17-0400 Systolic blood pressure 160 mm[Hg] [facility] Work Phone: 01-26-2022 20:07-0400 Diastolic blood pressure 68 mm[Hg] No Primary Care Physician [facility] Work Phone: 01-26-2022 20:07-0400 Heart rate 75 /min No Primary Care Physician [facility] Work Phone: 01-26-2022 20:07-0400 Respiratory rate 18 /min No Primary Care Physician [facility] Work Phone: 01-26-2022 20:07-0400 SaO2% (BldA) [Mass fraction] 96 % No Primary Care Physician [facility] Work Phone: 01-26-2022 20:07-0400 Systolic blood pressure 148 mm[Hg] No Primary Care Physician [facility] Work Phone: 01-26-2022 17:59-0400 Body temperature 98 [degF] No Primary Care Physician [facility] Work Phone: 01-26-2022 15:24-0400 Body height 165.1 cm No Primary Care Physician [facility] Work Phone: 01-26-2022 15:24-0400 Body mass index (BMI) [Ratio] 28.3 kg/m2 No Primary Care Physician [facility] Work Phone: 01-26-2022 15:24-0400 Body weight 77.11 kg No Primary Care Physician [facility] Work Phone: 01-20-2022 14:54-0400 SaO2% (BldA) [Mass fraction] 92 % No Primary Care Physician [facility] Work Phone: 01-20-2022 11:50-0400 Body temperature 98 [degF] No Primary Care Physician [facility] Work Phone: 01-20-2022 11:50-0400 Diastolic blood pressure 55 mm[Hg] No Primary Care Physician [facility] Work Phone: 01-20-2022 11:50-0400 Heart rate 57 /min No Primary Care Physician [facility] Work Phone: 01-20-2022 11:50-0400 Respiratory rate 20 /min No Primary Care Physician [facility] Work Phone: 01-20-2022 11:50-0400 Systolic blood pressure 95 mm[Hg] No Primary Care Physician [facility] Work Phone: 01-20-2022 03:49-0400 Body weight 87.8 kg No Primary Care Physician [facility] Work Phone: 01-17-2022 09:53-0400 Body height 165.1 cm No Primary Care Physician [facility] Work Phone: 01-17-2022 06:45-0400 Inhaled oxygen concentration 35 % No Primary Care Physician [facility] Work Phone: 01-17-2022 03:00-0400 Body mass index (BMI) [Ratio] 31.7 kg/m2 No Primary Care Physician [facility] Work Phone: 01-14-2022 16:12-0400 Body temperature 99.3 [degF] Pascale Mata LEAD GENERATION SPECIALIST.PILOT CAPTAIN Work Phone: [facility] 01-14-2022 16:12-0400 Body weight 84.28 kg Pascale Mata LEAD GENERATION SPECIALIST.PILOT CAPTAIN Work Phone: [facility] 01-14-2022 16:12-0400 Diastolic blood pressure 84 mm[Hg] Pascale Mata LEAD GENERATION SPECIALIST.PILOT CAPTAIN Work Phone: [facility] 01-14-2022 16:12-0400 Heart rate 112 /min Pascale Mata LEAD GENERATION SPECIALIST.PILOT CAPTAIN Work Phone: [facility] 01-14-2022 16:12-0400 Respiratory rate 20 /min Pascale Mata LEAD GENERATION SPECIALIST.PILOT CAPTAIN Work Phone: [facility] 01-14-2022 16:12-0400 SaO2% (BldA) [Mass fraction] 94 % Pascale Mata LEAD GENERATION SPECIALIST.PILOT CAPTAIN Work Phone: [facility] 01-14-2022 16:12-0400 Systolic blood pressure 146 mm[Hg] Pascale Mata LEAD GENERATION SPECIALIST.PILOT CAPTAIN Work Phone: [facility] 01-01-2022 04:13-0400 Diastolic blood pressure 110 mm[Hg] [facility] Work Phone: 01-01-2022 04:13-0400 Systolic blood pressure 158 mm[Hg] [facility] Work Phone: 01-01-2022 01:47-0400 Body height 167.64 cm [facility] Work Phone: 01-01-2022 01:47-0400 Body mass index (BMI) [Ratio] 29.5 kg/m2 [facility] Work Phone: 01-01-2022 01:47-0400 Body weight 83 kg [facility] Work Phone: 01-01-2022 01:43-0400 Body temperature 97.3 [degF] [facility] Work Phone: 01-01-2022 01:43-0400 Heart rate 86 /min [facility] Work Phone: 01-01-2022 01:43-0400 Respiratory rate 22 /min [facility] Work Phone: 01-01-2022 01:43-0400 SaO2% (BldA) [Mass fraction] 99 % [facility] Work Phone: 11-25-2021 22:03-0400 Diastolic blood pressure 105 mm[Hg] No Primary Care Physician [facility] Work Phone: 11-25-2021 22:03-0400 Heart rate 78 /min No Primary Care Physician [facility] Work Phone: 11-25-2021 22:03-0400 Respiratory rate 16 /min No Primary Care Physician [facility] Work Phone: 11-25-2021 22:03-0400 SaO2% (BldA) [Mass fraction] 96 % No Primary Care Physician [facility] Work Phone: 11-25-2021 22:03-0400 Systolic blood pressure 167 mm[Hg] No Primary Care Physician [facility] Work Phone: 11-25-2021 19:57-0400 Body height 165.1 cm No Primary Care Physician [facility] Work Phone: 11-25-2021 19:57-0400 Body mass index (BMI) [Ratio] 27.6 kg/m2 No Primary Care Physician [facility] Work Phone: 11-25-2021 19:57-0400 Body temperature 96.9 [degF] No Primary Care Physician [facility] Work Phone: 11-25-2021 19:57-0400 Body weight 75.29 kg No Primary Care Physician [facility] Work Phone: 11-17-2021 15:42-0400 Heart rate 105 /min No Primary Care Physician [facility] Work Phone: 11-17-2021 15:42-0400 Respiratory rate 16 /min No Primary Care Physician [facility] Work Phone: 11-17-2021 14:42-0400 Body mass index (BMI) [Ratio] 27.4 kg/m2 No Primary Care Physician [facility] Work Phone: 11-17-2021 14:42-0400 Body temperature 97.8 [degF] No Primary Care Physician [facility] Work Phone: 11-17-2021 14:42-0400 Body weight 77.11 kg No Primary Care Physician [facility] Work Phone: 11-17-2021 14:42-0400 Diastolic blood pressure 109 mm[Hg] No Primary Care Physician [facility] Work Phone: 11-17-2021 14:42-0400 SaO2% (BldA) [Mass fraction] 94 % No Primary Care Physician [facility] Work Phone: 11-17-2021 14:42-0400 Systolic blood pressure 143 mm[Hg] No Primary Care Physician [facility] Work Phone: 09-02-2021 13:46-0500 Body weight 79.9 kg No Primary Care Physician [facility] Work Phone: 09-02-2021 13:26-0500 Body temperature 97.7 [degF] No Primary Care Physician [facility] Work Phone: 09-02-2021 13:26-0500 Diastolic blood pressure 82 mm[Hg] No Primary Care Physician [facility] Work Phone: 09-02-2021 13:26-0500 Heart rate 87 /min No Primary Care Physician [facility] Work Phone: 09-02-2021 13:26-0500 Respiratory rate 18 /min No Primary Care Physician [facility] Work Phone: 09-02-2021 13:26-0500 SaO2% (BldA) [Mass fraction] 98 % No Primary Care Physician [facility] Work Phone: 09-02-2021 13:26-0500 Systolic blood pressure 130 mm[Hg] No Primary Care Physician [facility] Work Phone: 09-01-2021 12:00-0500 Body mass index (BMI) [Ratio] 28.4 kg/m2 No Primary Care Physician [facility] Work Phone: 07-26-2021 17:26-0500 Diastolic blood pressure 90 mm[Hg] [facility] 07-26-2021 17:26-0500 Heart rate 80 /min [facility] 07-26-2021 17:26-0500 Respiratory rate 18 /min [facility] 07-26-2021 17:26-0500 SaO2% (BldA) [Mass fraction] 98 % [facility] 07-26-2021 17:26-0500 Systolic blood pressure 135 mm[Hg] [facility] 07-26-2021 13:58-0500 Body temperature 98.01 [degF] [facility] 06-18-2021 11:41-0400 Body temperature 98.1 [degF] Paige Chacha DO Work Phone: [facility] Work Phone: 06-18-2021 11:41-0400 Diastolic blood pressure 89 mm[Hg] Paige Chacha DO Work Phone: [facility] Work Phone: 06-18-2021 11:41-0400 Heart rate 73 /min Paige Chacha DO Work Phone: [facility] Work Phone: 06-18-2021 11:41-0400 Respiratory rate 12 /min Paige Chacha DO Work Phone: [facility] Work Phone: 06-18-2021 11:41-0400 SaO2% (BldA) [Mass fraction] 94 % Paige Chacha DO Work Phone: [facility] Work Phone: 06-18-2021 11:41-0400 Systolic blood pressure [...] BMI (Body Mass Index) 30.02 kg/m2 [facility] Work Phone: 01-02-2017 09:27-0400 BP Diastolic 82 mm[Hg] [facility] Work Phone: 01-02-2017 09:27-0400 BP Systolic 120 mm[Hg] [facility] Work Phone: 01-02-2017 09:27-0400 Height 166.37 cm [facility] Work Phone: 01-02-2017 09:27-0400 Pulse (Heart Rate) 100 /min [facility] Work Phone: 01-02-2017 09:27-0400 Respiratory Rate 14 /min [facility] Work Phone: 01-02-2017 09:27-0400 Weight 83.1 kg [facility] Work Phone: 01-03-2016 08:40-0400 BSA (Body Surface Area) 1.92 m2 [facility] Work Phone: 12-16-2011 15:44-0400 Body Temperature 99.6 [degF] [facility] Work Phone: 12-16-2011 15:44-0400 BP Diastolic 111 mm[Hg] [facility] Work Phone: 12-16-2011 15:44-0400 BP Systolic 158 mm[Hg] [facility] Work Phone: 12-16-2011 15:44-0400 Pulse Oximetry 96 % [facility] Work Phone: Encounters Encounter Date Encounter Type Care Provider Facility Start: 07-04-2025 End: 07-04-2025 ambulatory [facility] Facility:[facility] Start: 06-20-2025 ambulatory Gabriel Ralph y:[facility] Start: 06-01-2025 Non-patient / Non-[facility] Start: 06-01-[address] Gabriel Galvan MD Work Phone: [facility] Start: 05-29-2025 Non-patient / Non-visit Dr. Mackenzie Jackson MD [facility] Work Phone: Start: 05-29-2025 Non-patient / Non-visit [facility] Start: 05-28-2025 Non-patient / Non-visit Dr. Mackenzie Jackson MD [facility] Work Phone: Start: 05-28-2025 Non-patient / Non-visit [facility] Start: 05-27-2025 Non-patient / Non-visit Dr. Edwin Russo MD [facility] Work Phone: Start: 05-27-2025 Non-patient / Non-visit [facility] Start: 05-26-2025 ambulatory [facility] Start: 05-26-2025 Non-patient / Non-visit [facility] Start: 05-26-2025 Non-patient / Non-visit Dr. Edwin Russo MD [facility] Work Phone: Start: 05-26-2025 ambulatory Rey Curtis Facility:[facility] Start: 05-26-2025 End: 05-29-2025 Evaluation and management of inpatient Dr. Jorgito Jackson MD -Progressive Care Unit Work Phone: Start: 05-23-2025 End: 05-23-2025 Follow-up encounter Ryanne Negro APRN.PILOT CAPTAIN Work Phone: [facility] Start: 05-22-2025 End: 05-22-2025 Subsequent hospital visit by physician Xr [facility] Work Phone: Radiology Comment on above: Acute cough [R05.1] Start: 05-22-2025 End: 05-22-2025 ambulatory RAJIV MUNOZ Facility:[facility] Start: 05-22-2025 End: 05-22-2025 Patient encounter procedure Rajiv Munoz LEAD GENERATION SPECIALIST.PILOT CAPTAIN Work Phone: [facility] [place] Comment on above: Acute cough (Primary Dx); Pleural effusion, not elsewhere classified; Sinobronchitis Start: 05-12-2025 End: 05-12-2025 Refill Gabriel Galvan MD Work Phone: [facility] [place] Comment on above: Refill Request Start: 04-13-2025 End: 04-17-2025 Refill Gabriel Galvan MD Work Phone: [facility] [place] Comment on above: Refill Request Start: 04-04-2025 End: 04-04-2025 Telephone encounter Gabriel Galvan MD Work Phone: [facility] [place] Comment on above: Results Start: 03-28-2025 End: 03-28-2025 Telephone encounter Gabriel Galvan MD Work Phone: [facility] [place] Start: 03-28-2025 End: 03-28-2025 ambulatory NORA CRESPO Facility:[facility] Start: 03-28-2025 End: 03-28-2025 Patient encounter procedure Nora Mahendra LEAD GENERATION SPECIALIST.PILOT CAPTAIN Work Phone: [facility] [place] Comment on above: Confusion (Primary D x); [...] Start: 03-28-2025 End: 03-28-2025 ambulatory NORA CRESPO Facility:[facility] Start: 03-13-2025 End: 03-13-2025 ambulatory Marty Beebe RNcommercial lines account executive Start: 03-13-2025 End: 03-13-2025 Telephone encounter Marcelo Bush MD Work Phone: [facility] Comment on above: Appointment (New sintia t date/time) Start: 02-09-2025 End: 02-09-2025 ambulatory GABRIEL GALVAN Facility:[facility] Start: 02-09-2025 End: 02-09-2025 Office outpatient new 60 minutes Grace Chaudhary MD, PhD Work Phone: General Surgery Comment on above: Paraesophageal herni a (Primary Dx); Esophageal dysphagia Start: 01-20-2025 End: 01-20-2025 ambulatory Scot York MA [facility] [place] Start: 01-20-2025 End: 01-20-2025 Chart abstracting Lo Porter [facility] Work Phone: Psychology Start: 01-20-2025 End: 01-20-2025 Patient encounter procedure Scot York MA [facility] [place] Start: 01-18-2025 End: 01-18-[address] Gabriel Galvan MD Work Phone: [facility] Work Phone: Start: 01-18-2025 End: 01-18-2025 Dr. Alok Forrest MD -Laboratory Work Phone: Start: 01-18-2025 End: 01-18-2025 Telephone encounter Helen Kearney RN General Surgery Start: 01-18-2025 End: 01-18-2025 ambulatory Gabriel Galvan Facility:[facility] Start: 01-17-2025 End: 01-17-2025 Telephone encounter Gabriel Galvan MD Work Phone: [facility] [place] Comment on above: Appointment (Hospita l f/u) Start: 01-13-2025 End: 01-13-2025 Rakesh Martinez [facility] Work Phone: Start: 01-13-2025 End: 01-13-2025 ambulatory Rakesh [place] Facility[place] Start: 01-12-2025 End: 02-03-2025 Telephone encounter Gabriel Galvan MD Work Phone: [facility] [place] Comment on above: Patient Update Start: 01-11-2025 End: 01-11-2025 ambulatory Blayne Moya RN Project Manager Senior Management Comment on above: ACM MANUELA RN ( Chart review per payor request) Start: 01-10-2025 End: 01-10-2025 [facility] Work Phone: Start: 01-10-2025 End: 01-10-2025 Emergency department patient visit Dr. Gabriel Galvan MD Work Phone: -Emergency Department Work Phone: Start: 01-10-2025 End: 01-12-2025 Telephone encounter Lyndsey Acevedo APRN.CYCLE CONSULTANT Work Phone: [facility] [place] Comment on above: Forms ([facility] assisted living form) Start: 01-05-2025 End: 03-07-2025 Follow-up encounter Lyndsey Acevedo APRN.CYCLE CONSULTANT Work Phone: [facility] [place] Start: 01-03-2025 End: 01-03-2025 Office outpatient visit 25 minutes Lyndsey Acevedo APRN.CNS Work Phone: [facility] [place] Comment on above: Chronic obstructive pulmonary disease, unspecified COPD type (HCC) (Primary Dx); Retana's esophagus without dysplasia; Left upper quadrant abdominal pain; Hypoxia; Neuropathy; Foamy urine; Hiatal hernia; Other chronic pain Start: 01-03-2025 End: 01-03-2025 ambulatory [facility] Facility:[facility] Start: 12-30-2024 End: 12-30-2024 Dr. Waqas Hart MD -Emergency Department Work Phone: Start: 12-30-2024 End: 12-30-2024 Emergency department patient visit Dr. Gabriel Galvan MD Work Phone: -Emergency Department Work Phone: Start: 12-22-2024 End: 12-22-2024 ambulatory Brenda Mcginnis RN Work Phone: Project Manager Senior Management Comment on above: ACM MANUELA RN ( Chart review review per request of payor ) Start: 12-20-2024 End: 12-20-2024 Dr. Waqas Hart MD -Emergency Department Work Phone: Start: 12-20-2024 End: 12-20-2024 Emergency department patient visit Dr. Gabriel Galvan MD Work Phone: -Emergency Department Work Phone: Start: 12-06-2024 End: 12-06-2024 [facility] [place] Start: 12-06-2024 End: 12-06-2024 Patient encounter procedure Scot York MA [facility] Comment on above: Population Health Na vigation Outreach ([employer] [place]) Start: 11-21-2024 End: 11-21-2024 ambulatory Gabriel Galvan MD Work Phone: [facility] Comment on above: Allied Health Visit (Medication Adherence Outreach ) Start: 11-14-2024 End: 11-16-2024 Telephone encounter Gabriel Galvan MD Work Phone: [facility] [place] Comment on above: Form: [facility] Start: 11-04-2024 End: 11-05-2024 Dr. Linus Byers MD -Emergency Department Work Phone: Start: 11-04-2024 End: 11-05-2024 Emergency department patient visit Dr. Linus Byers MD -Emergency Department Work Phone: Start: 10-26-2024 End: 10-26-2024 ambulatory Bimal Gonzalez RN Work Phone: Project Manager Senior Management Start: 10-26-2024 End: 10-26-2024 Telephone follow-up Bimal Gonzalez RN Work Phone: Project Manager Senior Management Comment on above: Transition Of Care ( [facility]- Follow-up Day 26) Started Weekly phone contact (Recurring) for Transitional Care Management Start: 10-12-2024 End: 10-12-2024 Telephone encounter Shruti Ontiveros MD Work Phone: General Surgery Comment on above: Outpatient Endoscopy Start: 10-10-2024 End: 10-10-2024 Patient Outreach Bimal Gonzalez RN Work Phone: Project Manager Senior Management Comment on above: Transition Of Care ( [facility] Folow-up Day 10) Started Weekly phone contact (Recurring) for Transitional Care Management Start: 10-04-2024 End: 10-10-2024 Telephone encounter Savannah Cruz MSW Navigation Start: 10-04-2024 Encounter for preprocedural cardiovascular examination [facility] Start: 10-04-2024 End: 10-04-[address] [facility] Work Phone: Start: 10-04-2024 End: 10-04-[address] Rey Curtis MD [facility] Start: 10-04-2024 End: 10-04-2024 [facility] Work Phone: Start: 10-04-2024 End: 10-04-2024 ambulatory Rey Curtis Facility:[facility] Start: 10-03-2024 End: 10-03-2024 Patient Outreach Bimal Gonzalez RN Work Phone: Project Manager Senior Management Comment on above: Transition Of Care ( [facility] Discharge 09/30/24) Initial phone contact for Transitional Care Management, Started Weekly phone contact (Recurring) for Transitional Care Management Start: 09-30-2024 Non-patient / Non-visit Dr. Horace MARTINEZ -[facility] Work Phone: Start: 09-30-2024 Dr. Jones ramirez MD -[facility] Work Phone: Start: 09-29-2024 End: 09-30-2024 Orders Only Peyton Torres MD Work Phone: [facility] [place] Comment on above: Chronic obstructive pulmonary disease, unspecified COPD type (HCC) (Primary Dx) Start: 09-29-2024 Non-patient / Non-visit Dr. Horace MARTINEZ -[facility] Work Phone: Start: 09-29-2024 Dr. Jones ramirez MD -[facility] Work Phone: Start: 09-28-2024 ambulatory Gabriel Galvan Facilit y:[facility] Start: 09-28-2024 End: 09-30-2024 Evaluation and management of inpatient Dr. Jones Gregory MD -Medical Surgical 3 Work Phone: Start: 09-28-2024 End: 09-30-2024 Dr. Jones Gregory MD -Medical Surgical 3 Work Phone: Start: 09-27-2024 End: 10-06-2024 Telephone encounter Gabriel Galvan MD Work Phone: [facility] [place] Comment on above: Patient Question Start: 09-15-2024 End: 10-09-2024 ambulatory Gabriel Galvan MD Work Phone: [facility] [place] Start: 09-15-2024 End: 10-09-2024 Patient encounter procedure Gabriel Galvan MD Work Phone: [facility] [place] Comment on above: Referral to Cardiolo gist Start: 09-14-2024 End: 09-14-2024 ambulatory GABRIEL GALVAN Facility:[facility] Start: 09-14-2024 End: 09-14-2024 [facility] Start: 09-14-2024 End: 09-14-2024 Office outpatient visit 25 minutes Gabriel Galvan MD Work Phone: Internal Medicine [place] Comment on above: Chronic obstructive pulmonary disease, [...] of medication Start: 08-26-2024 End: 08-26-2024 ambulatory [facility] Nuria [facility] Facility:[facility] Start: 08-26-2024 End: 08-26-2024 Patient encounter procedure Ryanne Negro APRN.CNP Work Phone: [place] [facility] Comment on above: Sore throat (Primary Dx); Respiratory infection Start: 08-21-2024 End: 08-21-2024 Emergency department patient visit [facility] Facility:[facility] Start: 07-20-2024 End: 07-25-2024 ambulatory Gabriel Galvan MD Work Phone: Internal Medicine [place] [id number] Start: 07-07-2024 End: 07-07-2024 Emergency department patient visit [facility] Facility:[facility] Start: 06-24-2024 End: 06-24-2024 Admission to same day surgery center Jamie Orr MD Work Phone: General Surgery Comment on above: Hiatal hernia (Prima ry Dx) Start: 06-24-2024 End: 06-24-2024 Telemedicine consultation with patient Jamie Orr MD Work Phone: General Surgery Start: 06-18-2024 End: 06-18-2024 Telephone encounter Alex RIBERA Work Phone: [place] [facility] Comment on above: Results Start: 06-17-2024 End: 06-17-2024 Office outpatient visit 15 minutes Chucky Zepeda APRN.PILOT CAPTAIN Work Phone: [place] [facility] Comment on above: Acute cough (Primary Dx); Viral illness Start: 06-17-2024 End: 06-17-2024 Subsequent hospital visit by physician [place] [facility] [place] Work Phone: Radiology Comment on above: Acute cough [R05.1] Start: 06-17-2024 End: 06-17-2024 Telephone encounter Chucky Zepeda APRN.PILOT CAPTAIN Work Phone: [place] [facility] Comment on above: Results Start: 06-03-2024 End: 06-03-2024 Telephone encounter Gabriel Galvan MD Work Phone: Internal Medicine [place] Comment on above: Results Start: 05-30-2024 End: 05-30-2024 Telephone encounter Nora Crespo APRN.PILOT CAPTAIN Work Phone: Internal Medicine [place] Start: 05-30-2024 End: 05-30-2024 Patient encounter procedure Nora Crespo LEAD GENERATION SPECIALIST.PILOT CAPTAIN Work Phone: Internal Medicine [place] Comment on above: Hiatal hernia (Prima ry Dx); Epigastric pain; Encounter for therapeutic drug monitoring; Mixed hyperlipidemia; Type 2 diabetes mellitus with other specified complication, without long-term current use of insulin (HCC); Vitamin D deficiency; Stress incontinence, female; OAB (overactive bladder); Essential hypertension, benign; Other chronic pain; Anxiety; Weight loss, non-intentional Start: 05-24-2024 End: 05-25-2024 Telephone encounter Gabriel Galvan MD Work Phone: Internal Medicine [place] Comment on above: Refill Request Start: 04-25-2024 End: 04-25-2024 Patient encounter procedure Darrell Tejada MD Work Phone: General Surgery Comment on above: Hiatal hernia; Generalized abdominal pain; History of abdominal abscess Start: 04-11-2024 End: 04-11-2024 Patient encounter procedure Nora Crespo APRN.PILOT CAPTAIN Work Phone: Internal Medicine [place] Comment on above: Hiatal hernia (Prima ry [...] Start: 03-21-2024 Telephone encounter Nora Cleav er LEAD GENERATION SPECIALIST.PILOT CAPTAIN Work Phone: Internal Medicine [place] Comment on above: Results Start: 03-18-2024 End: 03-18-2024 Subsequent hospital visit by physician Ct Prep [facility] Cat [facility] Comment on above: Generalized abdomina l pain [R10.84] Start: 03-15-2024 Telephone encounter Nora Cleav er LEAD GENERATION SPECIALIST.PILOT CAPTAIN Work Phone: Internal Medicine [place] Comment on above: Results Start: 03-14-2024 Telephone encounter Nora Cleav er LEAD GENERATION SPECIALIST.PILOT CAPTAIN Work Phone: Internal Medicine [place] Start: 03-14-2024 End: 03-14-2024 Patient encounter procedure Nora Mahendra LEAD GENERATION SPECIALIST.PILOT CAPTAIN Work Phone: Internal Medicine [place] Comment on above: Generalized abdomina l pain (Primary Dx); History of abdominal abscess; Retana's esophagus with dysplasia; Pneumonia due to infectious organism, unspecified laterality, unspecified part of lung; Encounter for therapeutic drug monitoring Start: 01-20-2024 ambulatory DARRELL TEJADA Facili ty:[facility] Start: 01-20-2024 End: 01-20-2024 Subsequent hospital visit by physician [facility] Comment on above: Arrived Infection in abdomen (HCC) [K65.9] Start: 01-18-2024 Refill Darrell donovan MD Work Phone: General Surgery Comment on above: Contrast allergy Start: 01-11-2024 E-mail encounter miguel m caregiver Gerard Xavier PA-C Work Phone: Radiology Start: 01-11-2024 Follow-up encounter Gerard griffin PA-C Work Phone: Radiology Comment on above: actionable findings follow up Start: 01-05-2024 End: 01-05-2024 Patient encounter procedure Darrell Tejada MD Work Phone: General Surgery Comment on above: RUQ pain (Primary Dx ); Liver abscess; Infection in abdomen (HCC) Start: 12-29-2023 End: 12-29-2023 Emergency department patient visit APRON MAN-Gigi Crespo APRON MAN [facility] Work Phone: Start: 12-29-2023 Registered Referred APRON MAN-Gigi Crespo APRON MAN [facility] Start: 12-23-2023 ambulatory Keegan Israel MD Work Phone: [place] Provider Adult Comment on above: CoPat Start Start: 12-23-2023 Telephone encounter Gabriel daley MD Work Phone: Internal Medicine [place] Comment on above: Patient Update Start: 12-20-2023 End: 12-28-2023 Evaluation and management of inpatient PAIGE Earl WINN Facility:[facility] Start: 12-19-2023 End: 12-20-2023 Emergency department patient visit NOT RECORDED PHYSICIAN Facility:[facility] Start: 12-19-2023 End: 12-20-2023 Emergency department patient visit DR MERLINE CHRISTENSEN DO [facility] Start: 12-09-2023 Telephone encounter Gabriel daley MD Work Phone: Internal Medicine [place] Comment on above: Patient Update Start: 12-07-2023 End: 12-07-2023 ambulatory LO WHITE Facility:[facility] Start: 11-30-2023 End: 12-12-2023 Evaluation and management of inpatient GABRIEL GALVAN Facility:[facility] Start: 11-30-2023 End: 11-30-2023 Emergency department patient visit Dr. Gabriel Galvan Work Phone: [facility] Work Phone: Start: 11-30-2023 ambulatory Pascale stone RT(R) Radiology Comment on above: Radiology XR Start: 11-30-2023 Patient encounter procedure Pascale Raymundo RT(R) [facility] Start: 11-30-2023 End: 11-30-2023 Emergency department patient visit Dr. Gabriel Galvan Work Phone: [facility] Work Phone: Start: 11-25-2023 End: 11-25-2023 Office outpatient visit 40 minutes Gabriel Galvan MD Work Phone: Internal Medicine [place] Comment on above: Gait instability (Pr imary Dx); Ankle weakness; Peripheral neuropathic pain; Retana's esophagus with dysplasia; Lower abdominal pain Start: 11-19-2023 ambulatory Penny Devries ([facility] [place] Comment on above: Population Health Na vigation Outreach ([employer]) Start: 09-29-2023 End: 09-29-2023 Emergency department patient visit Dr. Rakesh Martinez Work Phone: [facility] Work Phone: Start: 09-29-2023 End: 09-29-2023 Dr. Rakesh [place] Work Phone: [facility] Work Phone: Start: 09-28-2023 Non-patient / Non-visit Dr. Maria Eugenia Galvan Work Phone: [facility] Start: 09-28-2023 End: 09-28-2023 Admission to same day surgery center Dr. Gabriel Galvan Work Phone: [facility]Endoscopy Work Phone: Start: 09-28-2023 End: 09-28-[address] Rakesh [place] Work Phone: [facility] Work Phone: Start: 09-28-2023 End: 09-28-2023 Dr. Rakesh Martinez Work Phone: [facility] Work Phone: Start: 09-05-2023 End: 09-06-2023 Emergency department patient visit Dr. Gabriel Galvan Work Phone: [facility] Work Phone: Start: 09-05-2023 End: 09-06-2023 Dr. Gabriel Galvan Work Phone: [facility] Work Phone: Start: 08-25-2023 End: 08-25-[address] Gabriel Galvan Work Phone: [facility] Work Phone: Start: 08-25-2023 End: 08-25-2023 Dr. Gabriel Galvan Work Phone: [facility] Work Phone: Start: 08-12-2023 ambulatory Gabriel gregory MD Work Phone: [facility] [place] Start: 07-29-2023 End: 07-29-2023 Emergency department patient visit Dr. Gabriel Galvan Work Phone: [facility] Work Phone: Start: 07-29-2023 End: 07-29-2023 Dr. Gabriel Galvan Work Phone: [facility] Work Phone: Start: 07-28-2023 Non-patient / Non-visit Dr. Maria Eugenia Galvan Work Phone: [facility] Start: 07-28-2023 End: 07-28-2023 Admission to same day surgery center Dr. Gabriel Galvan Work Phone: [facility] Work Phone: Start: 07-28-2023 End: 07-28-[address] Gabriel Galvan Work Phone: [facility] Work Phone: Start: 07-28-2023 End: 07-28-2023 Dr. Gabriel Galvan Work Phone: [facility]End[facility] Work Phone: Start: 07-23-2023 Non-patient / Non-visit Dr. Maria Eugenia Galvan Work Phone: [facility] Work Phone: Start: 07-23-2023 Dr. Gabriel babin Work Phone: [facility] Work Phone: Start: 07-20-2023 Non-patient / Non-visit Dr. Maria Eugenia Galvan Work Phone: [facility] Start: 07-20-2023 Dr. Gabriel babin Work Phone: [facility] Start: 07-20-2023 End: 07-20-[address] Gabriel Galvan Work Phone: [facility] Work Phone: Start: 07-20-2023 End: 07-20-[address] Gabriel Galvan Work Phone: [facility]Cardi[facility] Work Phone: Start: 07-20-2023 End: 07-20-2023 Dr. Gabriel Galvan Work Phone: [facility] Work Phone: Start: 07-19-2023 End: 07-19-2023 Emergency department patient visit Dr. Gabriel Galvan Work Phone: [facility] Work Phone: Start: 07-19-2023 End: 07-19-2023 Dr. Gabriel Galvan Work Phone: [facility] Work Phone: Start: 07-16-2023 End: 07-16-[address] Gabriel Galvan Work Phone: [facility] Work Phone: Start: 07-16-2023 End: 07-16-[address] [facility] Start: 07-16-2023 End: 07-16-2023 Dr. [facility] Start: 07-16-2023 End: 07-16-[address] Gabriel Galvan Work Phone: [facility] Work Phone: Start: 07-16-2023 End: 07-16-2023 Dr. Gabriel Galvan Work Phone: [facility] Work Phone: Start: 06-25-2023 End: 06-25-[address] Gabriel Galvan Work Phone: [facility] Work Phone: Start: 06-25-2023 End: 06-25-2023 Dr. Gabriel Galvan Work Phone: [facility] Work Phone: Start: 06-24-2023 Non-patient / Non-visit Dr. Maria Eugenia Galvan Work Phone: [facility] Start: 06-24-2023 End: 06-24-2023 Admission to same day surgery center Dr. Gabriel Galvan Work Phone: [facility] Work Phone: Start: 06-24-2023 End: 06-24-[address] Gabriel Galvan Work Phone: [facility] Work Phone: Start: 06-24-2023 End: 06-24-2023 Dr. Gabriel Galvan Work Phone: [facility] Work Phone: Start: 06-23-2023 End: 06-23-2023 Emergency department patient visit Dr. Gabriel Galvan Work Phone: [facility] Work Phone: Start: 06-23-2023 End: 06-23-2023 Dr. Gabriel Galvan Work Phone: [facility] Work Phone: Start: 06-01-2023 End: 06-02-2023 Emergency department patient visit Dr. Gabriel Galvan Work Phone: [facility] Work Phone: Start: 06-01-2023 End: 06-02-2023 Dr. Gabriel Galvan Work Phone: [facility] Work Phone: Start: 05-22-2023 End: 05-22-[address] Gabriel Galvan Work Phone: [facility] Work Phone: Start: 05-22-2023 End: 05-22-2023 Dr. Gabriel Galvan Work Phone: [facility] Work Phone: Start: 05-04-2023 Telephone encounter Nora Cleav er LEAD GENERATION SPECIALIST.PILOT CAPTAIN Work Phone: Internal Medicine [place] Comment on above: Results (EMG) Start: 05-01-2023 End: 05-01-2023 ambulatory Emg 850) Neurology Comment on above: EMG Start: 05-01-2023 End: 05-01-2023 Patient encounter procedure Emg 1 Neur [facility] (Max Weight: 850) [facility] Start: 04-27-2023 Telephone encounter Nora Cleav er LEAD GENERATION SPECIALIST.PILOT CAPTAIN Work Phone: Internal Medicine [place] Comment on above: Results Start: 04-24-2023 End: 04-24-2023 Subsequent hospital visit by physician Xr [facility] Work Phone: Radiology Comment on above: Chronic bronchitis, unspecified chronic bronchitis type (HCC) [J42] Start: 04-17-2023 Telephone encounter Nora Cleav er LEAD GENERATION SPECIALIST.PILOT CAPTAIN Work Phone: Family [facility] Comment on above: Medication Problem Start: 04-16-2023 Telephone encounter Gabriel daley MD Work Phone: Internal Medicine [place] Comment on above: Patient Request Start: 04-06-2023 Telephone encounter Gabriel daley MD Work Phone: Family [facility] [place] Comment on above: Needs Authorization Start: 03-04-2023 End: 03-04-[address] Gabriel Galvan Work Phone: [facility] Vascular Surgery Work Phone: Start: 02-17-2023 Non-patient / Non-visit Dr. Kasey Serrano Work Phone: [facility] Start: 02-17-2023 End: 02-17-[address] Clyde Serrano Work Phone: [facility]Pulmonary Medicine [facility] Start: 02-16-2023 End: 02-16-[address] Clyde Serrano Work Phone: [facility] Work Phone: Start: 02-16-2023 End: 02-16-[address] Clyde Serrano Work Phone: [facility]-Pulmonary Services/Neurology Start: 01-16-2023 Telephone encounter Gabriel daley MD Work Phone: Internal Medicine [place] Comment on above: Medication Request Start: 01-16-2023 End: 01-16-2023 Emergency department patient visit Dr[facility] Start: 01-15-2023 Telephone encounter Savannah Bhat Comment on above: Social Work Services Start: 01-14-2023 End: 01-14-2023 Emergency department patient visit Dr. Sudhir [facility]choa [facility] Start: 01-13-2023 End: 01-13-2023 Patient encounter procedure Lyndsey Acevedo APRNIsabelaCYCLE CONSULTANT Work Phone: Internal Medicine [place] Comment on above: Shortness of breath (Primary Dx); Epigastric pain; Type 2 diabetes mellitus with other specified complication, without long-term current use of insulin ([facility]); Cardiomyopathy in disease classified elsewhere ([facility]); Supraventricular tachycardia ([facility]); Acute exacerbation of chronic obstructive pulmonary disease (COPD) ([facility]); LV (left ventricular) mural thrombus; Chest pain, unspecified type; NSTEMI (non-ST elevated myocardial infarction) ([facility]); HFrEF (heart failure with reduced ejection fraction) ([facility]); Gastroesophageal reflux disease, unspecified whether esophagitis present Start: 01-12-2023 End: 01-13-2023 Emergency department patient visit Dr. Sudhir [facility]cho[facility] Start: 01-10-2023 End: 01-10-2023 Emergency department patient visit Dr. Sudhir [facility]cho[facility] Start: 01-05-2023 Patient Outreach Gabriel redding MD Work Phone: Internal Medicine [place] Comment on above: Transition Of Care requesting prescript ion (cough) Start: 01-04-2023 Non-patient / Non-visit Dr. Madeline Ochoa Work Phone: [facility] Inpatient Physicians Start: 01-03-2023 Non-patient / Non-visit Dr. Madeline Ochoa Work Phone: [facility] Start: 01-02-2023 End: 01-04-2023 Evaluation and management of inpatient Dr. Sudhir Ochoa Work Phone: [facility]-Progressive Care Unit Start: 11-06-2022 Refill Gabriel gregory MD Work Phone: Internal Medicine [place] Comment on above: Refill Request Patient Update Start: 10-10-2022 Telephone encounter Gabriel daley MD Work Phone: Internal Medicine [place] Comment on above: Patient Update Start: 10-02-2022 Telephone encounter Gabriel daley MD Work Phone: Internal Medicine [place] Comment on above: Patient Update; Medi cation Request Start: 09-30-2022 End: 09-30-2022 Emergency department patient visit Dr. Sudhir Ochoa Work Phone: [facility] Work Phone: Start: 09-30-2022 End: 09-30-2022 Dr. Sudhir Ochoa Work Phone: [facility]Emergency Department Start: 09-30-2022 Telephone encounter Nora Jauregui er LEAD GENERATION SPECIALIST.PILOT CAPTAIN Work Phone: Family [facility] Comment on above: Mental Status Change s Start: 09-30-2022 End: 09-30-2022 Subsequent hospital visit by physician [facility] Work Phone: Radiology Comment on above: Lower abdominal pain [R10.30] Start: 09-24-2022 Telephone encounter Nora Jauregui er LEAD GENERATION SPECIALIST.PILOT CAPTAIN Work Phone: Internal Medicine [place] Comment on above: Results Start: 09-23-2022 End: 09-23-2022 Patient encounter procedure Nora Taylorr LEAD GENERATION SPECIALIST.PILOT CAPTAIN Work Phone: Internal Medicine [place] Comment on above: Epigastric pain (Karie cali Dx); Lower abdominal pain; Gastroesophageal reflux disease with esophagitis without hemorrhage; Smoker; Abdominal aneurysm; Bruit of left carotid artery; Hematuria, unspecified type; Chronic obstructive pulmonary disease, unspecified COPD type (HCC); Oral thrush; Neuropathy; Dizziness; Essential hypertension, benign; Encounter for therapeutic drug monitoring Start: 09-17-2022 End: 09-17-[address] Sudhir Ochoa Work Phone: [facility] Work Phone: Start: 09-17-2022 End: 09-17-[address] [facility] Start: 09-17-2022 End: 09-17-2022 Dr. Sud[facility] Start: 09-17-2022 End: 09-17-[address] Sudhir Ochoa Work Phone: [facility] Start: 09-17-2022 End: 09-17-2022 Dr. Sudhir Ochoa Work Phone: [facility] Start: 09-10-2022 Refill Gabriel gregory MD Work Phone: Internal Medicine [place] Comment on above: Refill Request Start: 09-02-2022 End: 09-02-2022 Emergency department patient visit Dr. Sudhir Ochoa Work Phone: [facility]Emer[facility] Start: 09-02-2022 End: 09-02-2022 Dr. Sudhir Ochoa Work Phone: [facility] Start: 08-30-2022 End: 08-30-2022 Emergency department patient visit Dr. Sudhir Ochoa Work Phone: [facility] Start: 08-30-2022 End: 08-30-2022 Dr. Sudhir Ochoa Work Phone: [facility] Start: 08-27-2022 Telephone encounter Annamarie Lopez APRN.CNP Work Phone: Family Medicine [place] Comment on above: ER F/U Start: 08-23-2022 End: 08-23-2022 Emergency department patient visit Dr. Sudhir Ochoa Work Phone: [facility] Start: 08-23-2022 End: 08-23-2022 Dr. Sudhir Ochoa Work Phone: [facility] Start: 08-11-2022 Non-patient / Non-visit Dr. Madeline Ochoa Work Phone: [facility] Start: 08-11-2022 Dr. Sudhir Ochoa Work Phone: [facility] Start: 08-11-2022 End: 08-11-2022 Admission to same day surgery center Dr. Sudhir Ochoa Work Phone: [facility]-It Engineer/Special Procedures Start: 08-11-2022 End: 08-11-[address] Sudhir Ochoa Work Phone: [facility] Work Phone: Start: 08-11-2022 End: 08-11-2022 Dr. Sudhir Ochoa Work Phone: [facility]-It [facility]/Special Procedures Start: 08-08-2022 End: 08-09-2022 Emergency department patient visit Dr. Sudhir Ochoa Work Phone: [facility]Emer[facility] Start: 08-08-2022 End: 08-09-2022 Dr. Sudhir Ochoa Work Phone: [facility]Emer[facility] Start: 08-05-2022 End: 08-05-[address] Sudhir Ochoa Work Phone: [facility] Vascular Surgery Start: 08-05-2022 End: 08-05-2022 Dr. Sudhir Ochoa Work Phone: [facility] V[facility] Surgery Start: 08-04-2022 End: 08-04-2022 Emergency department patient visit [facility] Start: 08-04-2022 End: 08-04-2022 Dr. Sudhir Ochoa Work Phone: [facility] Start: 08-02-2022 End: 08-03-2022 Emergency department patient visit [facility] Start: 08-02-2022 End: 08-03-2022 Dr. Sudhir Ochoa Work Phone: [facility] Start: 06-29-2022 End: 06-29-2022 Emergency department patient visit [facility] Start: 06-29-2022 End: 06-29-2022 Dr. Sudhir Ochoa Work Phone: [facility] Start: 06-09-2022 End: 06-09-2022 Emergency department patient visit [facility] Start: 06-09-2022 End: 06-09-2022 Dr. Sudhir Ochoa Work Phone: [facility] Start: 06-04-2022 End: 06-04-2022 Emergency department patient visit [facility] Start: 06-04-2022 End: 06-04-2022 Dr. Sudhir Ochoa Work Phone: [facility] Start: 02-26-2022 End: 02-26-2022 Emergency department patient visit [facility] Start: 01-26-2022 End: 01-26-2022 Emergency department patient visit No Primary Care Physician [facility]Emer[facility] Start: 01-21-2022 Telephone encounter Chucky [place] MD Work Phone: Family Medicine [place] Comment on above: Patient Update Start: 01-20-2022 Non-patient / Non-visit No Karie archibald Care Physician [facility] [facility] Start: 01-20-2022 Non-patient / Non-visit No Karie archibald Care Physician [facility] Start: 01-19-2022 Non-patient / Non-visit No Karie rachibald Care Physician [facility] Start: 01-19-2022 Non-patient / Non-visit No Karie cali Care Physician [facility] Start: 01-18-2022 Non-patient / Non-visit No Karie cali Care Physician [facility] Start: 01-18-2022 Non-patient / Non-visit No Karie archiabld Care Physician [facility] Start: 01-18-2022 Non-patient / Non-visit No Karie archibald Care Physician [facility] Start: 01-17-2022 Non-patient / Non-visit No Karie archibald Care Physician [facility] Start: 01-17-2022 End: 01-20-2022 Evaluation and management of inpatient No [facility] Start: 01-17-2022 Non-patient / Non-visit No Karie archibald Care Physician [facility] Start: 01-17-2022 Non-patient / Non-visit No Karie archibald Care Physician [facility] Start: 01-14-2022 End: 01-14-2022 Patient encounter procedure Pascale Mata APRN.[facility] Work Phone: [place] [facility] Comment on above: COPD with exacerbati on (HCC) (Primary Dx); Cough Start: 01-01-2022 End: 01-01-2022 Emergency department patient visit [facility]gency Department Start: 11-25-2021 End: 11-25-2021 Emergency department patient visit No Primary Care Physician [facility]Emergency Department Start: 11-17-2021 End: 11-17-2021 Emergency department patient visit No Primary Care Physician [facility]Emergency Department Start: 09-02-2021 Non-patient / Non-visit No Karie archibald Care Physician [facility] Inpatient Physicians Start: 09-02-2021 Non-patient / Non-visit No Karie archibald Care Physician [facility] Start: 09-01-2021 End: 09-02-2021 Evaluation and management of inpatient No Primary Care Physician [facility] Start: 09-01-2021 Non-patient / Non-visit No [facility] Start: 09-01-2021 Non-patient / Non-visit No [facility] Start: 07-26-2021 End: 07-26-2021 Emergency department patient visit [facility] ED Comment on above: Rib contusion, left, initial encounter (Primary Dx); Fall, initial encounter Start: 06-15-2021 End: 06-18-2021 Evaluation and management of inpatient Paige Burnham DO Work Phone: [facility] [employer] Comment on above: COVID (Primary Dx); Paroxysmal supraventricular tachycardia (HCC); Hypoxia; Pneumonia due to infectious organism, unspecified laterality, unspecified part of lung Start: 06-14-2021 End: 06-15-2021 Evaluation and management of inpatient Juice Perez DO Work Phone: [facility] [employer] Start: 09-09-2019 [facility] Start: 06-24-2017 End: 09-23-2022 Patient encounter procedure Pascale Mata LEAD GENERATION SPECIALIST.PILOT CAPTAIN Work Phone: [facility] Work Phone: Start: 06-24-2017 Patient encounter status Gertrudis Mata LEAD GENERATION SPECIALIST.PILOT CAPTAIN Work Phone: [facility] Work Phone: Start: 12-22-2016 Patient encounter status Gertrudis Mata LEAD GENERATION SPECIALIST.PILOT CAPTAIN Work Phone: [facility] Work Phone: Start: 06-05-2014 End: 09-23-2022 Patient encounter status Darrell Tejada MD Work Phone: [facility] Procedures Date Procedure Procedure Detail Performing Clinician Start: 05-29-[address] Gabriel Galvan MD Work Phone: Start: 05-27-2025 End: 05-27-2025 Streptococcus pneumoniae antigen assay Dr. Gabriel Galvan MD Work Phone: Start: 05-26-2025 [address] acid assay Dr[address] Gabriel Galvan MD Work Phone: Start: 05-26-[address] Gabriel Galvan MD Work Phone: Start: 05-26-[address] Gabriel Galvan MD Work Phone: Start: 05-26-2025 Sars-cov-2 Dr. Gabriel Galvan MD Work Phone: Start: 05-26-2025 Serum inorganic phosphate measurement Dr. Gabriel Galvan MD Work Phone: Start: 05-26-2025 Plain chest X-ray Dr. Gabriel Galvan MD Work Phone: Start: 05-22-2025 COVID & INFLUENZA A/B & RSV PCR, ROUTINE Rajiv Munoz LEAD GENERATION SPECIALIST.PILOT CAPTAIN Work Phone: Start: 05-22-2025 Radiologic exam chest 2 views Rajiv Prapelon-Atilio LEAD GENERATION SPECIALIST.PILOT CAPTAIN Work Phone: Start: 01-18-2025 Benzodiazepine measurement, urine [...] Urnls dip stick/tablet rgnt auto w/o microscopy Lyndsey Acevedo APRNIsabelaCYCLE CONSULTANT Work Phone: Start: 12-30-2024 Plain chest X-ray [...] Radiologic exam chest 2 views Chucky Zepeda LEAD GENERATION SPECIALIST.PILOT CAPTAIN Work Phone: Start: 03-18-2024 Ct abdomen & pelvis w/o contrast material Nora Crespo LEAD GENERATION SPECIALIST.PILOT CAPTAIN Work Phone: Start: 12-29-2023 Computed tomography of abdomen and pelvis with contrast APRON MAN-C Nora Crespo APRON MAN Start: 12-20-2023 History of cholecystectomy S/P laparoscopic cholecystectomy Gabriel Galvan MD Work Phone: Start: 12-01-2023 Antibody screen GABRIEL GALVAN Comment on above: Order Comment: Specimen Type: BLOOD SPEC IMENOrdering Facility: [facility] Address: [address] [place] [address] Performed By: #### T SCR ####HAND B[facility]OD [facility] [id number] [place] [address] [facility] Start: 11-30-2023 CT of chest without contrast [...] Nerve conduction studies 5-6 studies Nora Crespo LEAD GENERATION SPECIALIST.PILOT CAPTAIN Work Phone: Start: 04-24-2023 Radiologic exam chest 2 views Nora canseco LEAD GENERATION SPECIALIST.PILOT CAPTAIN Work Phone: Start: 01-14-2023 US scan of [...] retroperitoneal real time w/image limited Nora Crespo APRN.PILOT CAPTAIN Work Phone: Start: 09-23-2022 Urnls dip stick/tablet rgnt auto w/o microscopy Nora Crespo APRN.PILOT CAPTAIN Work Phone: Start: 08-30-2022 CT angiography of [...] RIBERA Work Phone: Start: 06-18-2021 Procalcitonin (pct) Jesus Hill MD Work Phone: Start: 06-17-2021 Fibrin [...] Best MD Start: 04-16-2016 Colonoscopy Pascale Mata APRYARY Work Phone: Start: 01-03-2016 End: 01-03-2016 Follow [...] [AGGREGATE] Libby Dye MD Hysterectomy DR MERLINE Quiñones O Incision of gallbladder DR Gigi CHRISTENSEN DO Respiratory Panel (PCR) Dr. Sudhir Ochoa Work Phone: Streptococcus pyogen es antigen assay Streptococcus pyogen es antigen assay Dr. Sudhir Ochoa Work Phone: Urine culture Dr. Sudhir Ochoa Work Phone: Viral antigen assay Viral antigen assay Dr. Mary Ochoa Work Phone: Plan of Treatment Date Care Activity Detail Author Start: 04-16-[address] [facility] Start: 04-16-2026 COLORECTAL CANCER SCREENING COLORECTAL CANCER SCREENING [facility] Start: 04-16-2026 Screening for malignant neoplasm of colon [facility] Start: 03-28-2026 Annual PCP Team Chronic Disease Visit Annual PCP Team Chronic Disease Visit [facility] Start: 02-09-2026 BP Controlled (<130/80) BP Controlled (<130/80) [facility] Start: 01-03-2026 BP Controlled (<130/80) BP Controlled (<130/80) [facility] Start: 09-28-2025 Hemoglobin A1c measurement HbA1C [facility] Start: 09-23-2025 DIABETES SCREEN DIABETES SCREEN [facility] Start: 09-14-2025 Annual PCP Team Chronic Disease Visit Annual PCP Team Chronic Disease Visit [facility] Start: 09-14-2025 BP Controlled (<130/80) BP Controlled (<130/80) [facility] Start: 09-14-2025 Hepatitis B surface antibody level LDL Cholesterol [facility] Start: 06-01-2025 Non-patient / Non-visit Non-patient / Non-visit -[facility] Start: 05-30-2025 Annual PCP Team Chronic Disease Visit Annual PCP Team Chronic Disease Visit [facility] Start: 05-30-2025 Hepatitis B surface antibody level LDL Cholesterol [facility] Start: 05-29-2025 Patient discharge [facility] Start: 05-29-2025 Notification of physician [facility] Start: 05-29-2025 Patient education [facility] Start: 05-29-2025 Provision of activity privileges [facility] Start: 05-29-2025 Pulse taking [facility] Start: 05-29-2025 Taking patient vital signs [facility] Start: 05-29-2025 Wound care [facility] Start: 05-29-2025 [facility] Start: 05-28-2025 Catheterization of vein [facility] Start: 05-28-2025 Notification of physician [facility] Start: 05-28-2025 Preoperative care [facility] Start: 05-28-2025 End: 05-28-2025 [facility] Start: 05-28-2025 Inhalation therapy procedure [facility] Start: 05-27-2025 Following clinical pathway protocol [facility] Start: 05-26-2025 Continuous pulse oximetry [facility] Start: 05-26-2025 Dual pressure spontaneous ventilation support [facility] Start: 05-26-2025 Elevation of head of bed [facility] Start: 05-26-2025 Patient education [facility] Start: 05-26-2025 Ambulation without limitation [facility] Start: 05-26-2025 Assessment of risk of venous thromboembolism [facility] Start: 05-26-2025 Insertion of catheter into peripheral vein [facility] Start: 05-26-2025 Measuring intake and output [facility] Start: 05-26-2025 Oxygen therapy [facility] Start: 05-26-2025 Providing care according to standard [facility] Start: 05-26-2025 Referral for physical therapy [facility] Start: 05-26-2025 Referral to manager plan [facility] Start: 05-26-2025 Referral to occupational therapist [facility] Start: 05-26-2025 Tobacco use cessation education [facility] Start: 05-26-2025 End: 05-26-2025 [facility] Start: 05-26-2025 [facility] Start: 05-26-2025 Hospital admission, emergency, from emergency room, medical nature [facility] Start: 05-26-2025 Admission procedure [facility] Start: 05-26-2025 [facility] Start: 05-24-2025 End: 05-24-2025 Patient encounter procedure [facility] Comment on above: 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]; hiatal hernia-(HGD on 06/24/23); ref by PCP/confirmation call-lm(mo) new np-[id number]-Gynrqlf's esophagus without dysplasia & hiatal hernia-(HGD on 06/24/23); ref by PCP new [id number]-DXW-Ogiionp's esophagus without dysplasia & hiatal hernia-(HGD on 06/24/23); ref by PCP/confirmation call-lm(mo) Start: 05-08-[address] [facility] Start: 04-25-2025 BP Controlled (<130/80) BP Controlled (<130/80) [facility] Start: 04-17-2025 End: 04-17-2025 Patient encounter procedure 04/17/2025 2:40 PM EDT Office Visit [facility] [address] [place], [place] [address] Gabriel Galvan MD [address] [place], [place] [address] 3 month follow up [facility] Comment on above: 3 month follow up Start: 04-11-2025 Annual PCP Team Chronic Disease Visit Annual PCP Team Chronic Disease Visit [facility] Start: 04-04-2025 End: 04-04-2025 Patient encounter procedure Internal Med murray Zimmer Comment on above: 1 week follow up Encounter for screen ing mammogram for breast cancer [Z12.31] Start: 03-28-2025 End: 06-27-2025 25-hydroxyvitamin D3 [Mass/volume] in Serum or Plasma [facility] Comment on above: Expected: 03/28/2025, Expires: Start: 03-28-2025 End: 06-27-2025 Bacteria identified in Urine by Culture BACTERIAL CULTURE, URINE Microbiology Routine Confusion Expected: 03/28/2025, Expires: 06/27/2025 [facility] Comment on above: Expected: 03/28/2025, Expires: Start: 03-28-2025 End: 06-27-2025 Cobalamin (Vitamin B12) [Mass/volume] in Serum or Plasma [facility] Comment on above: Expected: 03/28/2025, Expires: Start: 03-28-2025 End: 06-27-2025 Comprehensive metabolic 2000 panel - Serum or Plasma [facility] Comment on above: Expected: 03/28/2025, Expires: Start: 03-28-2025 End: 06-27-2025 Ferritin [Mass/volume] in Serum or Plasma [facility] Comment on above: Expected: 03/28/2025, Expires: Start: 03-28-2025 End: 06-27-2025 Hemoglobin A1c in Blood [facility] Comment on above: Expected: 03/28/2025, Expires: Start: 03-28-2025 End: 06-27-2025 Iron and Iron binding capacity panel - Serum or Plasma [facility] Comment on above: Expected: 03/28/2025, Expires: Start: 03-28-2025 End: 06-27-2025 Magnesium [Mass/volume] in Serum or Plasma [facility] Comment on above: Expected: 03/28/2025, Expires: Start: 03-28-2025 End: 06-27-2025 Thyrotropin [Units/volume] in Serum or Plasma [facility] Comment on above: Expected: 03/28/2025, Expires: Start: 03-28-2025 End: 06-27-2025 Urinalysis complete panel - Urine URINALYSIS, WITH MICROSCOPIC Lab Routine Confusion Expected: 03/28/2025, Expires: 06/27/2025 [facility] Comment on above: Expected: 03/28/2025, Expires: Start: 03-22-2025 End: 03-22-2025 Patient encounter procedure 03/22/2025 11:00 AM EDT Office Visit [facility] [address] [place], [place] [phone] Marcelo Bush MD 1 [facility] [address] [place] [phone] HBC-Retana's esophagus without dysplasia [K22.70]; hiatal hernia-(HGD on 06/24/23); ref by PCP [facility] Comment on above: 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]; hiatal hernia-(HGD on 06/24/23); ref by PCP Start: 03-20-2025 End: 03-20-2025 Patient encounter procedure 03/20/2025 7:30 AM EDT Appointment Gastroenterology [address] [address] Sarai Hendrix MD [address] [place] [address] 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] Gastroenterology Comment on above: 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 Start: 03-14-2025 BP Controlled (<130/80) BP Controlled (<130/80) [facility] Start: 03-14-2025 [facility] Start: 02-24-2025 End: 02-24-2025 Patient encounter procedure 02/24/2025 1:30 PM EDT Office Visit Pulmonary Medicine [address] [place], [place] [phone] Peyton Torres MD [address] [place], [place] [phone] Chronic obstructive pulmonary disease, unspecified COPD type (HCC) [J44.9] Pulmonary Medicine Comment on above: Chronic obstructive pulmonary disease, u nspecified COPD type (HCC) [J44.9] Start: 02-24-2025 End: 02-24-2025 ambulatory [facility] Comment on above: Chronic obstructive pulmonary disease, u nspecified COPD type (HCC) [J44.9] Start: 02-20-2025 End: 02-20-2025 Patient encounter procedure 02/20/2025 2:00 PM EDT Office Visit General Surgery [address] [address] Billy Parry MD [address] [place], [place] [phone] Hiatal hernia [K44.9]; Generalized abdominal pain [R10.84] General Surgery Comment on above: Hiatal hernia [K44.9]; Generalized abdom inal pain [R10.84] Start: 02-09-2025 End: 02-09-2025 Patient encounter procedure Pulmonary Me dicine Comment on above: Chronic obstructive pulmonary disease, u nspecified COPD type (HCC) [J44.9] New HH symptomatic w as offered Start: 02-09-2025 End: 02-09-2025 ambulatory [facility] Comment on above: Chronic obstructive pulmonary disease, u nspecified COPD type (HCC) [J44.9] Start: 01-26-2025 End: 01-26-2025 Patient encounter procedure 01/26/2025 1:00 PM EDT Office Visit General Surgery [address] [place] [address] Grace Chaudhary MD, PhD [address] [place], [place] [phone] New HH, symptomatic was offered surgery with Dr Ramachandran last year General Surgery Comment on above: New HH, symptomatic was offered surgery with Dr Ramachandran last year Start: 01-25-2025 End: 01-25-2025 Patient encounter procedure [facility] Comment on above: Retana's esophagus without dysplasia [K 22.70] HBC-Retana's esopha david without dysplasia [K22.70]; hiatal hernia-(HGD on 06/24/23); ref by PCP Start: 01-18-2025 Procedure [facility] Start: 01-16-2025 End: 01-16-2025 Patient encounter procedure 01/16/2025 10:00 AM EDT Office Visit Internal Medicine [facility] [address] [facility] [place] [address] Gabriel Galvan MD [address] [place] [address] ED follow up Internal Medicine [facility] Comment on above: ED follow up Start: 01-10-2025 [facility] Start: 01-09-2025 End: 01-09-2025 [facility] Comment on above: 3 month follow up Start: 12-30-2024 [facility] Start: 12-20-2024 [facility] Start: 12-20-2024 End: 12-20-2024 [facility] Start: 12-09-2024 End: 12-09-2024 Patient encounter procedure 12/09/2024 10:40 AM EDT Office Visit Internal Medicine [facility] [address] [facility] [place] [address] Gabriel Galvan MD [address] [place] [address] kidney neck and chest pain, dizziness [facility] Comment on above: kidney neck and chest pain, dizziness Start: 11-29-2024 Screening for malignant neoplasm of lung Lung Cancer Screening [facility] Start: 11-27-2024 Hemoglobin A1c measurement HbA1C [facility] Start: 11-24-2024 Annual PCP Team Chronic Disease Visit Annual PCP Team Chronic Disease Visit [facility] Start: 11-05-2024 [facility] Start: 11-04-2024 End: 11-04-2024 [facility] Start: 10-22-2024 End: 10-22-2024 Patient encounter procedure 10/22/2024 9:00 AM EST Office Visit Internal Medicine [facility] [address] [place] [address] Gabriel Galvan MD [address] [place], [place] [phone] hospital follow up [facility] [place] Comment on above: hospital follow up Start: 10-19-2024 End: 10-19-2024 Patient encounter procedure 10/19/2024 2:30 PM EST Appointment [facility] [address] [place] [address] Shruti Ontiveros MD [address] [place] [phone] Hiatal hernia [K44.9] [facility] Comment on above: Hiatal hernia [K44.9] Start: 10-18-2024 End: 10-18-2024 Nursing evaluation of patient and report 10/18/2024 9:30 AM EST Nurse Visit Gastroenterology [address] [address] Lab, Nurse Gi I [address] [place] [address] MANOMETRY ESOPHAGEAL Gastroenterology Comment on above: MANOMETRY ESOPHAGEAL Start: 10-17-2024 End: 10-17-2024 Patient encounter procedure 10/17/2024 11:00 AM EST Office Visit Pulmonary Medicine [address] [place], [place] [phone] Peyton Torres MD [address] [facility] [place] [place] [phone] copd Pulmonary Medicine Comment on above: copd Start: 10-17-2024 End: 10-17-2024 ambulatory [facility] Comment on above: copd Start: 10-11-2024 End: 10-11-2024 Patient encounter procedure Mammogram Comment on above: Encounter for screening mammogram for br east cancer [Z12.31] hospital follow up Start: 09-30-2024 Patient discharge [facility] Start: 09-28-2024 End: 09-29-2024 [facility] Start: 09-28-2024 Assessment of risk of venous thromboembolism [facility] Start: 09-28-2024 Insertion of catheter into peripheral vein [facility] Start: 09-28-2024 Measuring intake and output [facility] Start: 09-28-2024 Oxygen therapy [facility] Start: 09-28-2024 Providing care according to standard [facility] Start: 09-28-2024 Provision of activity privileges [facility] Start: 09-28-2024 Referral to service [facility] Start: 09-28-2024 Following clinical pathway protocol [facility] Start: 09-28-2024 Admission procedure [facility] Start: 09-28-2024 Inhalation therapy procedure [facility] Start: 09-28-2024 Patient referral to dietitian [facility] Start: 09-14-2024 End: 12-14-2024 25-hydroxyvitamin D3 [Mass/volume] in Serum or Plasma [facility] Comment on above: Expected: 09/14/2024, Expires: Start: 09-14-2024 End: 12-14-2024 CBC panel - Blood by Automated count [facility] Comment on above: Expected: 09/14/2024, Expires: Start: 09-14-2024 End: 12-14-2024 Comprehensive metabolic 2000 panel - Serum or Plasma [facility] Work Phone: Comment on above: Expected: 09/14/2024, Expires: Start: 09-14-2024 End: 12-14-2024 Hemoglobin A1c in Blood [facility] Comment on above: Expected: 09/14/2024, Expires: Start: 09-14-2024 End: 12-14-2024 LIPID PANEL, NONFASTING [facility] Comment on above: Expected: 09/14/2024, Expires: Start: 09-14-2024 End: 12-14-2024 Magnesium [Mass/volume] in Serum or Plasma [facility] Comment on above: Expected: 09/14/2024, Expires: Start: 09-07-2024 Advance Directive Discussion Advance Directive Discussion [facility] Start: 09-07-2024 Medicare Advantage Annual Wellness Visit Medicare Advantage Annual Wellness Visit [facility] Start: 07-12-2024 End: 07-12-2024 Patient encounter procedure 07/12/2024 3:40 PM EST Office Visit Internal Medicine [place] [address] [place] [address] Nora Crespo APRN.PILOT CAPTAIN [address] [place] [address] 3 month follow-up [facility] [place] Comment on above: 3 month follow-up Start: 07-08-2024 End: 07-08-2024 Patient encounter procedure 07/08/2024 10:10 AM EDT Office Visit General Surgery [address] [place] [address] Scot Mcduffie MD [address] [place], [place] [phone] New consult HH referral Dr Tejada c/o [...] Office Visit General Surgery [address] [place] [address] Catherine Gill APRN.PILOT CAPTAIN [address] [place] [address] discomfort to epigastric and LUQ CT scan [...] AM EDT Office Visit General Surgery [address] [place] [address] Scot Mcduffie MD [address] [place], [place] [phone] New consult HH referral Dr Tejada c/o [...] 25-hydroxyvitamin D3 [Mass/volume] in Serum or Plasma [facility] Comment on above: Expected: 05/30/2024, Expires: Start: 05-30-2024 End: 08-29-2024 Comprehensive metabolic 2000 panel - Serum or Plasma [facility] Work Phone: Comment on above: Expected: 05/30/2024, Expires: Start: 05-30-2024 End: 08-29-2024 Hemoglobin A1c in Blood [facility] Comment on above: Expected: 05/30/2024, Expires: Start: 05-30-2024 End: 08-29-2024 LIPID PANEL, NONFASTING [facility] Comment on above: Expected: 05/30/2024, Expires: Start: 05-30-2024 End: 08-29-2024 Magnesium [Mass/volume] in Serum or Plasma [facility] Comment on above: Expected: 05/30/2024, Expires: Start: 05-30-2024 End: 08-29-2024 Microalbumin/Creatinine [Mass Ratio] in Urine ALBUMIN/CREATININE RATIO, URINE Lab Routine Type 2 diabetes mellitus with other specified complication, without long-term current use of insulin (HCC) Expected: 05/30/2024, Expires: 08/29/2024 [facility] Comment on above: Expected: 05/30/2024, Expires: Start: 05-30-2024 End: 05-30-2024 Patient encounter procedure 05/30/2024 1:00 PM EDT Office Visit Internal Medicine [place] [address] [place], [place] [phone] Nora Crespo APRN.PILOT CAPTAIN [address] [place], [place] [phone] discharge from [facility] May 24, respitory failure with hypoxia Internal Medicine [place] Comment on above: discharge from [facility] May 24, respitory failure with hypoxia Start: 05-08-2024 Covid-19 Vaccine ( season) Covid-19 Vaccine ( season) [facility] Start: 05-08-2024 Covid-19 Vaccine ( season) Covid-19 Vaccine ( season) [facility] Start: 05-08-[address] [facility] Start: 04-25-2024 End: 04-25-2024 Patient encounter procedure 04/25/2024 2:45 PM EDT Office Visit General Surgery [address] [place], [place] [phone] Darrell Tejada MD [address] [place], [place] [phone] Hiatal hernia [K44.9]; Generalized abdominal pain [R10.84]; History of abdominal abscess [Z87.898] General Surgery Comment on above: Hiatal hernia [K44.9]; Generalized abdom inal pain [R10.84]; History of abdominal abscess [Z87.898] Start: 04-24-2024 ANNUAL PCP TEAM CHRONIC DISEASE VISIT ANNUAL PCP TEAM CHRONIC DISEASE VISIT [facility] Start: 04-24-2024 BP CONTROLLED (<130/80) BP CONTROLLED (<130/80) [facility] Start: 04-24-2024 Hepatitis B screening URINE ALBUMIN:CREATININE RATIO [facility] Start: 04-24-2024 Hepatitis B surface antibody level LDL CHOLESTEROL [facility] Start: 04-22-[address] L[address]ID SCREEN [facility] Start: 04-15-2024 ANNUAL PCP TEAM CHRONIC DISEASE VISIT ANNUAL PCP TEAM CHRONIC DISEASE VISIT [facility] Start: 04-11-2024 End: 04-11-2024 Patient encounter procedure 04/11/2024 1:40 PM EDT Office Visit Internal Medicine [place] [address] [place], [place] [phone] Nora Crespo APRN.PILOT CAPTAIN [address] [place], [place] [phone] 4 week follow up Internal Medicine [place] Comment on above: 4 week follow up Start: 04-07-2024 End: 04-07-2024 Patient encounter procedure 04/07/2024 10:30 AM EDT Office Visit [facility] [address] [place] [phone] Paige Fabian PA-C [address] [place], [place] [phone] [place] ([phone]) - ABD PAIN, nausea, adv to have someone with her at appt at all time, pt just waiting for assisted living to open for her [facility] [place] Comment on above: [place] ([phone]) - ABD PAIN, nausea, ad v to have someone with her at appt at all time, pt just waiting for assisted living to open for her Start: 03-28-2024 End: 03-28-2024 Patient encounter procedure 03/28/2024 2:15 PM EDT Office Visit General Surgery [address] [place], [place] [phone] Darrell Tejada MD [address] [place], [place] [phone] Follow up General Surgery Comment on above: Follow up Start: 03-18-2024 End: 03-18-2024 Patient encounter procedure [facility] Comment on above: Generalized abdominal pain [R10.84] Start: 03-14-2024 End: 06-13-2024 Amylase [Enzymatic activity/volume] in Serum or Plasma [facility] Comment on above: Expected: 03/14/2024, Expires: Start: 03-14-2024 End: 06-13-2024 Comprehensive metabolic 2000 panel - Serum or Plasma [facility] Work Phone: Comment on above: Expected: 03/14/2024, Expires: Start: 03-14-2024 End: 06-13-2024 Lipase [Enzymatic activity/volume] in Serum or Plasma [facility] Comment on above: Expected: 03/14/2024, Expires: Start: 02-25-2024 End: 02-25-2024 Patient encounter procedure 02/25/2024 1:25 PM EDT Office Visit [facility] [address] [facility] [place] [address] Paige Fabian PA-C [address] [facility] [place] [place] [phone] ABD PAIN [facility] [place] Comment on above: ABD PAIN Start: 02-24-2024 End: 02-24-2024 Patient encounter procedure 02/24/2024 10:00 AM EDT Office Visit Cardiology [address] [place] [phone] Yahaira Navarro MD [address] [place] [phone] hypertension, heart disease Cardiology Comment on above: hypertension, heart disease Start: 01-19-2024 End: 01-19-2024 Patient encounter procedure [facility] Comment on above: Infection in abdomen ( Start: 01-12-2024 End: 01-12-2024 Patient encounter procedure 01/12/2024 11:30 AM EDT Office Visit Gastroenterology [address] [place] [address] Drake York MD [address] [place] [address] stomach issues, bioduct stint Gastroenterology Comment on above: stomach issues, bioduct stint Start: 12-29-2023 [facility] Start: 12-29-2023 [facility] Start: 11-30-2023 [facility] Start: 10-25-2023 Hemoglobin A1c measurement HbA1C [facility] Start: 10-25-2023 Hemoglobin A1c/Hemoglobin.total in Blood HBA1C [facility] Start: 09-29-2023 [facility] Start: 09-29-2023 End: 09-29-2023 [facility] Start: 09-28-2023 Egd ablate tumor polyp/lesion w/dilation& wire EGD LESION ABLATION [facility] Start: 09-28-2023 Patient discharge [facility] Start: 09-23-2023 ANNUAL PCP TEAM CHRONIC DISEASE VISIT ANNUAL PCP TEAM CHRONIC DISEASE VISIT [facility] Start: 09-23-2023 BP CONTROLLED (<130/80) BP CONTROLLED (<130/80) [facility] Start: 09-07-2023 Advance Directive Discussion Advance Directive Discussion [facility] Start: 07-29-2023 [facility] Start: 07-28-2023 Egd dilation gastric/duodenal stricture [facility] Start: 07-28-2023 Egd transoral biopsy single/multiple [facility] Start: 07-28-2023 Ercp remove calculi/debris biliary/pancreas duct [facility] Start: 07-28-2023 Ercp stent placement biliary/pancreatic duct [facility] Start: 07-28-2023 Endoscopic retrograde cholangiopancreatography ERCP Biliary/Pancreas [facility] Start: 07-28-2023 RF Guidance for endoscopy of Biliary ducts and Pancreatic duct-- W contrast retrograde [facility] Start: 07-28-2023 Patient discharge [facility] Start: 07-19-2023 [facility] Start: 07-19-2023 [facility] Start: 06-24-2023 Egd insert guide wire dilator passage esophagus [facility] Start: 06-24-2023 Egd transoral biopsy single/multiple EGD BIOPSY SINGLE/MULTIPLE [facility] Start: 06-24-2023 Patient discharge [facility] Start: 06-23-2023 [facility] Start: 06-23-2023 [facility] Start: 05-08-2023 Covid-19 Vaccine ( season) Covid-19 Vaccine () [facility] Start: 05-08-[address] [facility] Start: 03-23-2023 Hemoglobin A1c/Hemoglobin.total in Blood HBA1C [facility] Start: 01-12-2023 [facility] Start: 01-10-2023 [facility] Start: 01-04-2023 Patient discharge [facility] Start: 01-04-2023 Inhalation therapy procedure [facility] Start: 01-02-2023 Application of intermittent pneumatic compression device [facility] Start: 01-02-2023 Oxygen therapy [facility] Start: 01-02-2023 Tobacco use cessation education [facility] Start: 01-02-2023 [facility] Start: 01-02-2023 Assessment of risk of venous thromboembolism [facility] Start: 01-02-2023 Insertion of catheter into peripheral vein [facility] Start: 01-02-2023 Measuring intake and output [facility] Start: 01-02-2023 Providing care according to standard [facility] Start: 01-02-2023 Provision of activity privileges [facility] Start: 01-02-2023 Referral to manager plan [facility] Start: 01-02-2023 Referral to occupational therapist [facility] Start: 01-02-2023 Referral to service [facility] Start: 01-02-2023 Speech therapy assessment [facility] Start: 01-02-2023 Following clinical pathway protocol [facility] Start: 01-02-2023 Influenza virus A and B and SARS-CoV-2 (COVID-19) Ag panel - Upper respiratory specim [facility] Start: 01-02-2023 Troponin I measurement [facility] Start: 01-02-2023 End: 01-02-2023 [facility] Start: 01-02-2023 Verification routine [facility] Start: 01-02-2023 Admission procedure [facility] Start: 01-02-2023 [facility] Start: 01-02-2023 Patient referral to dietitian [facility] Start: 09-30-2022 [facility] Start: 09-23-2022 End: 11-23-2022 Alpha 1 antitrypsin [Mass/volume] in Serum or Plasma [facility] Work Phone: Comment on above: Expected: 09/23/2022, Expires: 3 Start: 09-23-2022 End: 11-23-2022 Amylase [Enzymatic activity/volume] in Serum or Plasma [facility] Work Phone: Comment on above: Expected: 09/23/2022, Expires: 3 Start: 09-23-2022 End: 11-23-2022 Cobalamin (Vitamin B12) [Mass/volume] in Serum or Plasma [facility] Work Phone: Comment on above: Expected: 09/23/2022, Expires: 3 Start: 09-23-2022 End: 11-23-2022 Comprehensive metabolic 2000 panel - Serum or Plasma [facility] Work Phone: Comment on above: Expected: 09/23/2022, Expires: 3 Start: 09-23-2022 End: 11-23-2022 Lipase [Enzymatic activity/volume] in Serum or Plasma [facility] Work Phone: Comment on above: Expected: 09/23/2022, Expires: 3 Start: 09-07-2022 ADVANCE DIRECTIVE DISCUSSION ADVANCE DIRECTIVE DISCUSSION [facility] Start: 08-23-2022 [address]ES SCREEN DI[address]ETES SCREEN [facility] Start: 08-23-2022 [facility] Start: 06-29-2022 Blood chemistry [facility] Work Phone: Start: 06-29-2022 [facility] Start: 06-17-2022 Creatinine measurement Creatinine monitoring [facility] Start: 06-17-2022 Potassium monitoring Potassium monitoring [facility] Start: 06-14-2022 Creatinine measurement Creatinine monitoring [facility] Work Phone: Start: 06-14-2022 Potassium monitoring Potassium monitoring [facility] Work Phone: Start: 05-08-[address] [facility] Start: 01-27-2022 Patient referral [facility] Work Phone: Start: 2021 ADVANCE DIRECTIVE DISCUSSION ADVANCE DIRECTIVE DISCUSSION [facility] Start: [address] BONE D[address] [facility] Start: 2021 Bone Density Screening Bone Density Screening [facility] Start: 2021 Pneumococcal Vaccine: 65+ (3 - PPSV23 or PCV20) Pneumococcal Vaccine: 65+ (3 - PPSV23 or PCV20) [facility] Start: 2021 Pneumococcal Vaccine: 65+ (3 of 3 - PPSV23 or PCV20) Pneumococcal Vaccine: 65+ (3 of 3 - PPSV23 or PCV20) [facility] Start: 2021 PNEUMOCOCCAL: 65+ (3 - PPSV23 if available, else PCV20) PNEUMOCOCCAL: 65+ (3 - PPSV23 if available, else PCV20) [facility] Start: 2021 PNEUMOCOCCAL: 65+ (3 - PPSV23 or PCV20) PNEUMOCOCCAL: 65+ (3 - PPSV23 or PCV20) [facility] Start: 2021 PNEUMOVAX AGE 65 AND OVER WITH 5YR LOOKBACK (#1) PNEUMOVAX AGE 65 AND OVER WITH 5YR LOOKBACK (#1) [facility] Start: 2021 Screening for osteoporosis Bone Density Screening [facility] Start: 09-02-2021 Patient referral [facility] Work Phone: Start: 06-17-2021 Annual Wellness Visit (AWV) Annual Wellness Visit (AWV) [facility] Start: 05-08-2021 Influenza vaccination Flu vaccine (#1) [facility] Start: 2020 ANNUAL PCP TEAM CHRONIC DISEASE VISIT ANNUAL PCP TEAM CHRONIC DISEASE VISIT [facility] Start: 04-22-2020 Hepatitis B surface antibody level LDL CHOLESTEROL [facility] Start: 12-30-2017 End: 12-30-2017 Appointment Appointment [facility] Work Phone: Start: 01-02-2017 End: 01-02-2017 Echocardiography Echocardiogram (complete) [facility] Work Phone: Start: 01-02-2017 End: 01-02-2017 Follow Up Appt 1 year Follow Up Appt 1 year [facility] Work Phone: Start: 01-02-2017 End: 01-02-2017 Follow Up Appt Other Follow Up Appt Other [facility] Work Phone: Start: 01-02-2017 End: 01-02-2017 PFM PFM [facility] Work Phone: Start: 2016 Hepatitis B Vaccine (1 of 3 - Risk 3-dose series) Hepatitis B Vaccine (1 of 3 - Risk 3-dose series) [facility] Start: 2016 RSV Vaccine (1 - 1-dose 60+ series) RSV Vaccine (1 - 1-dose 60+ series) [facility] Start: 2016 RSV Vaccine (1 - Risk 60-74 years 1-dose series) RSV Vaccine (1 - Risk 60-74 years 1-dose series) [facility] Start: 01-03-2016 End: 01-03-2016 Follow Up Appt 1 year Follow Up Appt 1 year [facility] Work Phone: Start: 01-03-2016 End: 01-03-2016 PFM PFM [facility] Work Phone: Start: 04-20-2013 End: 04-20-2013 Echocardiography Echocardiogram (complete) [facility] Work Phone: Start: 04-20-2013 End: 04-20-2013 Electrocardiogram, complete EKG (In office) [facility] Work Phone: Start: 04-20-2013 End: 04-20-2013 Follow Up Appt 6 months Follow Up Appt 6 months [facility] Work Phone: Start: 04-20-2013 End: 04-20-2013 PFM PFM [facility] Work Phone: Start: 06-21-2012 End: 01-26-2013 *Hepatic Function Panel *Hepatic Function Panel [facility] Work Phone: Start: 06-21-2012 End: 06-21-2012 Follow Up Appt 3 months Follow Up Appt 3 months [facility] Work Phone: Start: 06-21-2012 End: 01-26-2013 Lipid panel [AGGREGATE] *Lipid Profile [facility] Work Phone: Start: 12-16-2011 End: 01-14-2013 Chest x-ray X-Ray, Chest, PA & Lateral [facility] Work Phone: Start: 2011 End: 2011 Lipid panel [AGGREGATE] *Lipid Profile [facility] Work Phone: Start: 2006 Influenza vaccination LUNG CANCER SCREENING [facility] Start: 2006 Screening for malignant neoplasm of breast Breast cancer screen [facility] Start: 2006 Screening for malignant neoplasm of lung Lung Cancer Screening [facility] Start: 2006 Shingles Vaccine (1 of 2) Shingles Vaccine (1 of 2) [facility] Start: 2006 SHINGRIX VACCINE (1 of 2) SHINGRIX VACCINE (1 of 2) [facility] Start: 2001 COLOGUARD (FIT-DNA) COLOGUARD (FIT-DNA) [facility] Start: [address] [facility] Start: 2001 FECAL OCCULT BLOOD FECAL OCCULT BLOOD [facility] Start: 2001 Screening for malignant neoplasm of colon [facility] Start: [address] [facility] Start: [address] [facility] Start: 1996 Screening for malignant neoplasm of breast Mammogram Screening [facility] Start: 1986 Zoledronic acid therapy ALPHA-[address] SCREENING [facility] Start: 11-29-1975 DTaP/Tdap/Td vaccine (1 - Tdap) DTaP/Tdap/Td vaccine (1 - Tdap) [facility] Start: 11-29-1975 Urine microalbumin profile [facility] Start: 1974 BP CONTROLLED (<130/80) BP CONTROLLED (<130/80) [facility] Start: 1974 Diabetic microalbuminuria test Diabetic microalbuminuria test [facility] Start: 1974 [address] HIV SCREENING [facility] Start: 11-29-1971 HIV screening HIV screen [facility] Start: 1968 COVID-19 Vaccine (1) COVID-19 Vaccine (1) [facility] Start: 1966 3 comp foot exam completed DIABETIC FOOT EXAM [facility] Start: 1966 Diabetic foot examination Diabetic foot exam [facility] Start: 1966 Diabetic retinal exam Diabetic retinal exam [facility] Start: 1966 Glaucoma screening Dilated Retinal Exam [facility] Start: 1966 Hemoglobin A1c measurement A1C test (Diabetic or Prediabetic) [facility] Start: 1966 Hepatitis B screening URINE ALBUMIN:CREATININE RATIO [facility] Start: 1966 Hepatitis C antibody, confirmatory test DILATED RETINAL EXAM [facility] Start: 1966 Lipid panel Lipid screen [facility] Start: 1962 Pneumococcal 0-64 years Vaccine (1 of 2 - PPSV23) Pneumococcal 0-64 years Vaccine (1 of 2 - PPSV23) [facility] Start: 1961 COVID-19 VACCINE (#1) COVID-19 VACCINE (#1) [facility] Start: 05-31-1957 COVID-19 VACCINE (#1) COVID-19 VACCINE (#1) [facility] Start: 1956 Hepatitis C screening Hepatitis C screen [facility] Alanine aminotransfe rase [Enzymatic activity/volume] in Serum or Plasma [facility] Albumin [Mass/volume ] in Serum or Plasma [facility] Alkaline phosphatase [Enzymatic activity/volume] in Serum or Plasma [facility] Ankle brachial pressure index [facility] Work Phone: Ankle brachial pressure index [facility] Ankle brachial pressure index [facility] Aspartate aminotrans ferase [Enzymatic activity/volume] in Serum or Plasma [facility] Bacteria identified in Urine by Culture BACTERIAL CULTURE, URINE Microbiology Routine Foamy urine 01/03/2025 2:25 PM EDT [facility] Work Phone: Basic metabolic 2000 panel - Serum or Plasma Basic Metabolic Panel Lab Routine Daily until discontinued starting 06/15/2021 [facility] Work Phone: Comment on above: Daily until discontinued starting 2020 Bilirubin measurement, urine [facility] Work Phone: Bilirubin, total measurement [facility] Bilirubin.direct [Ma ss/volume] in Serum or Plasma [facility] End: 06-16-2021 C-reactive protein C-Reactive Protein Lab Routine Daily for 3 Occurrences starting 06/14/2021 until 06/16/2021, 1 completed [employer] Work Phone: Comment on above: Daily for 3 Occurrences starting until 06/16/2021, 1 completed End: 06-17-2021 C-reactive protein C-Reactive Protein Lab Routine Daily for 3 Occurrences starting 06/16/2021 until 06/17/2021, 2 completed [employer] Work Phone: Comment on above: Daily for 3 Occurrences starting until 06/17/2021, 2 completed CBC W Auto Different ial panel - Blood CBC Auto Differential Lab Routine Daily until discontinued starting 06/15/2021 [employer] Work Phone: Comment on above: Daily until discontinued starting 2020 COVID & INFLUENZA A/ B & RSV PCR, ROUTINE COVID & INFLUENZA A/B & RSV PCR, ROUTINE Microbiology Routine Viral illness 06/17/2024 3:22 PM EDT [facility] Work Phone: End: 02-03-2025 CT Abdomen and Pelvis W contrast IV CT ABD/PEL W IVCON Radiology Routine Infection in abdomen (HCC) 1 Occurrences starting 01/05/2024 until 02/03/2025 [facility] [employer] Work Phone: Comment on above: 1 Occurrences starting 01/05/2024 until 02/03/2025 End: 04-13-2025 CT Abdomen and Pelvis WO contrast CT ABD/PEL WO IVCON Radiology STAT Generalized abdominal pain 1 Occurrences starting 03/14/2024 until 04/13/2025 [facility] Comment on above: 1 Occurrences starting 03/14/2024 until 04/13/2025 CT Abdomen WO contrast CT ABDOME N WO IVCON Radiology Routine Infection in abdomen (HCC) 01/20/2024 1:04 PM EDT [facility] Work Phone: End: 02-16-2025 CT Abdomen WO contrast CT ABDOMEN WO IVCON Radiology Routine Infection in abdomen (HCC) 1 Occurrences starting 01/19/2024 until 02/16/2025 [facility] Work Phone: Comment on above: 1 Occurrences starting 01/19/2024 until 02/16/2025 End: 05-27-2024 Ct thorax w/o contrast material CT CHEST WO IVCON Radiology Routine Encounter for screening for lung cancer Chronic cough Chronic bronchitis, unspecified chronic bronchitis type (HCC) Smoker 1 Occurrences starting 04/28/2023 until 05/27/2024 [facility] Work Phone: Comment on above: 1 Occurrences starting 04/28/2023 until 05/27/2024 End: 06-14-2021 Culture, Respiratory, Sputum Culture, Respiratory, Sputum Microbiology Routine One Time for 1 Occurrences starting 06/14/2021 until 06/14/2021 [employer] Work Phone: Comment on above: One Time for 1 Occurrences starting 04/2021 until 06/14/2021 End: 06-16-2021 Culture, Respiratory, Sputum Culture, Respiratory, Sputum Microbiology Routine One Time for 1 Occurrences starting 06/16/2021 until 06/16/2021 [employer] Work Phone: Comment on above: One Time for 1 Occurrences starting 06/07 until 06/16/2021 End: 06-17-2021 D-Dimer, Quantitative D-Dimer, Quantitative Lab Routine Daily for 3 Occurrences starting 06/16/2021 until 06/17/2021, 2 completed [employer] Work Phone: Comment on above: Daily for 3 Occurrences starting 021 until 06/17/2021, 2 completed End: 08-19-2025 DBT Breast - bilateral screening YANG SCREENING W GANESH Radiology Routine Encounter for screening mammogram for breast cancer 1 Occurrences starting 07/20/2024 until 08/19/2025 [facility] Work Phone: Comment on above: 1 Occurrences starting 07/20/2024 until 08/19/2025 End: 04-27-2026 DBT Breast - bilateral screening YANG SCREENING W GANESH Radiology Routine Encounter for screening mammogram for breast cancer 1 Occurrences starting 03/28/2025 until 04/27/2026 [facility] Work Phone: Comment on above: 1 Occurrences starting 03/28/2025 until 04/27/2026 End: 06-24-2025 EGD DIAGNOSTIC EGD DIAGNOSTIC Endoscopy Routine Hiatal hernia 1 Occurrences starting 06/24/2024 until 06/24/2025 [facility] Comment on above: 1 Occurrences starting 06/24/2024 until 06/24/2025 End: 02-09-2026 EGD DIAGNOSTIC EGD DIAGNOSTIC Endoscopy Routine Paraesophageal hernia 1 Occurrences starting 02/09/2025 until 02/09/2026 [facility] Work Phone: Comment on above: 1 Occurrences starting 02/09/2025 until 02/09/2026 EKG 12 Lead EKG 12 Lead ECG Routine 06/14/2021 10:29 AM EDT [employer] Work Phone: Electrocardiographic procedure [facility] Work Phone: Electrocardiographic procedure [facility] Hematocrit [Volume F raction] of Blood [facility] Hemoglobin [Mass/vol ume] in Blood [facility] Hemoglobin [Presence] in Urine [facility] Work Phone: End: 06-18-2021 Home O2 eval (desaturation screen) Home O2 eval (desaturation screen) Respiratory Care Routine One Time for 1 Occurrences starting 06/18/2021 until 06/18/2021 [employer] Work Phone: Comment on above: One Time for 1 Occurrences starting 06/07 until 06/18/2021 Lactic acid measurement [facility] End: 06-15-2021 Lactic Acid, Plasma Lactic Acid, Plasma Lab Routine Tomorrow AM for 1 Occurrences starting 06/15/2021 until 06/15/2021 [employer] Work Phone: Comment on above: Tomorrow AM for 1 Occurrences starting 1 until 06/15/2021 End: 06-14-2021 Legionella antigen, urine Legionella antigen, urine Microbiology Add-On One Time for 1 Occurrences starting 06/14/2021 until 06/14/2021 [employer] Work Phone: Comment on above: One Time for 1 Occurrences starting 04/2021 until 06/14/2021 End: 06-16-2021 Legionella antigen, urine Legionella antigen, urine Microbiology Routine One Time for 1 Occurrences starting 06/16/2021 until 06/16/2021 [facility] Work Phone: Comment on above: One Time for 1 Occurrences starting 06/07 until 06/16/2021 Leukocytes [#/volume] in Blood [facility] Lipid 1996 panel - S yaya or Plasma [facility] End: 10-29-2025 LUNG DIFFUSION CAPACITY (DLCO) LUNG DIFFUSION CAPACITY (DLCO) PFT Routine Chronic obstructive pulmonary disease, unspecified COPD type (HCC) 1 Occurrences starting 09/30/2024 until 10/29/2025 [facility] Work Phone: Comment on above: 1 Occurrences starting 09/30/2024 until 10/29/2025 Magnesium [Mass/volu me] in Serum or Plasma [facility] End: 09-10-2024 YANG SCREENING YANG SCREENING Radiology Routine Encounter for screening mammogram for breast cancer 1 Occurrences starting 08/12/2023 until 09/10/2024 [facility] Work Phone: Comment on above: 1 Occurrences starting 08/12/2023 until 09/10/2024 End: 06-24-2025 Manometry Study observation Narrative MANOMETRY ESOPHAGEAL Endoscopy Routine Hiatal hernia 1 Occurrences starting 06/24/2024 until 06/24/2025 [facility] Work Phone: Comment on above: 1 Occurrences starting 06/24/2024 until 06/24/2025 End: 02-09-2026 Manometry Study observation Narrative MANOMETRY ESOPHAGEAL Endoscopy Routine Paraesophageal hernia Esophageal dysphagia 1 Occurrences starting 02/09/2025 until 02/09/2026 [facility] Comment on above: 1 Occurrences starting 02/09/2025 until 02/09/2026 Mean corpuscular hem oglobin concentration determination [facility] Mean corpuscular hem oglobin determination [facility] Measurement of keton es in urine using dipstick [facility] Work Phone: Measurement of respi ratory function [facility] End: 06-14-2021 Microscopic observation [Identifier] in Unspecified specimen by Gram stain Gram Stain Microbiology STAT Once for 1 Occurrences starting 06/14/2021 until 06/14/2021 [employer] Work Phone: Comment on above: Once for 1 Occurrences starting 06/14/20 until 06/14/2021 End: 06-16-2021 Microscopic observation [Identifier] in Unspecified specimen by Gram stain Gram Stain Microbiology Routine Once for 1 Occurrences starting 06/16/2021 until 06/16/2021 [employer] Work Phone: Comment on above: Once for 1 Occurrences starting 06/16/20 until 06/16/2021 Microscopic urinalysis [facility] Work Phone: Neutrophil count [facility] Neutrophil percent differential count [facility] NM Heart Views W str ess and W radionuclide IV [facility] Organism count, micr oscopic method [facility] Work Phone: End: 06-15-2021 Oxygen nasal cannula oxygen Oxygen nasal cannula oxygen Respiratory Care STAT Continuous until discontinued starting 06/15/2021 [facility] Work Phone: Comment on above: Continuous until discontinued starting 1 Oxygen therapy [[facility] Data [facility]] [facility] Work Phone: Comment on above: Daily until discontinued starting 2020 Daily until disconti nued starting 06/16/2021 Patient Education [facility] Work Phone: Patient referral [facility] Work Phone: pH of Urine [facility] Work Phone: Platelets [#/volume] in Blood [facility] End: 06-16-2021 Procalcitonin Procalcitonin Lab Routine Q48H for 2 Occurrences starting 06/14/2021 until 06/16/2021, 1 completed [employer] Work Phone: Comment on above: Q48H for 2 Occurrences starting 06/14/20 until 06/16/2021, 1 completed Red blood cell count [facility] Red cell distributio n width determination [facility] Specific gravity of Urine [facility] Work Phone: End: 10-29-2025 SPIROMETRY WITH DILATOR IF OBSTRUCTED SPIROMETRY WITH DILATOR IF OBSTRUCTED PFT Routine Chronic obstructive pulmonary disease, unspecified COPD type (HCC) 1 Occurrences starting 09/30/2024 until 10/29/2025 [facility] Comment on above: 1 Occurrences starting 09/30/2024 until 10/29/2025 STREP A MOLECULAR (POC) STREP A MOLECULAR (POC) Microbiology Routine Sore throat Ordered: 08/26/2024 [facility] Work Phone: Comment on above: Ordered: 08/26/2024 End: 06-14-2021 Strep Pneumoniae Antigen Strep Pneumoniae Antigen Microbiology Add-On One Time for 1 Occurrences starting 06/14/2021 until 06/14/2021 [employer] Work Phone: Comment on above: One Time for 1 Occurrences starting 04/2021 until 06/14/2021 End: 06-16-2021 Strep Pneumoniae Antigen Strep Pneumoniae Antigen Microbiology Routine One Time for 1 Occurrences starting 06/16/2021 until 06/16/2021 [employer] Work Phone: Comment on above: One Time for 1 Occurrences starting 06/07 until 06/16/2021 Streptococcus pyogen es antigen assay Group A Streptococcus Rapid Screen [facility] Work Phone: Total protein measurement [facility] End: 06-15-2021 Troponin I.cardiac [Mass/volume] in Serum or Plasma Troponin Lab Routine Tomorrow AM for 1 Occurrences starting 06/15/2021 until 06/15/2021 [employer] Work Phone: Comment on above: Tomorrow AM for 1 Occurrences starting 1 until 06/15/2021 UA DIP B/O UA DIP B/O Lab Routine Hematuria, unspecified type Ordered: 09/23/2022 [facility] Work Phone: Comment on above: Ordered: 09/23/2022 Urinalysis, blood, qualitative [facility] Work Phone: Urine dipstick for glucose [facility] Work Phone: Urine dipstick for l eukocyte esterase [facility] Work Phone: Urine dipstick for nitrite [facility] Work Phone: Urine dipstick for protein [facility] Work Phone: Urine examination [facility] Work Phone: Urine microscopy: ep ithelial cells [facility] Work Phone: Urine Microscopy: white cells [facility] Work Phone: Urine test [facility] Urobilinogen [Presen ce] in Urine [facility] Work Phone: End: 09-23-2023 US CAROTID ARTERIES [facility] US CAROTID ARTERIES [facility] Vascular Lab Routine Abdominal aneurysm Bruit of left carotid artery Dizziness 1 Occurrences starting 09/23/2022 until 09/23/2023 [facility] Work Phone: Comment on above: 1 Occurrences starting 09/23/2022 until 09/23/2023 [facility] Work Phone: [facility] End: 10-23-2023 Us retroperitoneal real time w/image limited US ABD AORTA Radiology Routine Lower abdominal pain Abdominal aneurysm Dizziness 1 Occurrences starting 09/23/2022 until 10/23/2023 [facility] Work Phone: Comment on above: 1 Occurrences starting 09/23/2022 until 10/23/2023 White blood cell count [facility] Work Phone: End: 06-15-2021 XR CHEST (2 VW) XR CHEST (2 VW) Imaging Routine Once for 1 Occurrences starting 06/15/2021 until 06/15/2021 [facility] Work Phone: Comment on above: Once for 1 Occurrences starting 06/15/20 21 until 06/15/2021 [facility] Immunizations Immunization Date Immunization Notes Care Provider Antonella doss 12-30-2023 pneumococcal conjuga te (PCV20) vaccine, 20 valent (PREVNAR 20) Ryanne Negro LEAD GENERATION SPECIALIST.PILOT CAPTAIN Work Phone: [facility] 06-29-2023 influenza (HD-IIV4) vaccine, age 65+ yr, high dose, quadrivalent, PF (FLUZONE HIGH-DOSE) Nora Crespo LEAD GENERATION SPECIALIST.PILOT CAPTAIN Work Phone: [facility] 06-29-2023 influenza virus vacc ine, unspecified formulation Nora Crespo LEAD GENERATION SPECIALIST.PILOT CAPTAIN Work Phone: [facility] 07-22-2018 influenza, injectabl e, quadrivalent, preservative free Dr. Gabriel Galvan Work Phone: [facility] 07-22-2018 influenza, seasonal, injectable No Primary Care Physician [facility] 07-22-2018 influenza, seasonal, injectable, preservative free Nora Crespo LEAD GENERATION SPECIALIST.PILOT CAPTAIN Work Phone: [facility] Work Phone: 07-22-2018 influenza virus vacc ine, unspecified formulation Us 2 Work Phone: [facility] 06-24-2017 influenza, injectabl e, quadrivalent, contains preservative Pascale Mata LEAD GENERATION SPECIALIST.PILOT CAPTAIN Work Phone: [facility] 06-24-2017 pneumococcal conjuga te vaccine, 13 valent Pascalesandra Mata LEAD GENERATION SPECIALIST.PILOT CAPTAIN Work Phone: [facility] 06-07-2014 Influenza virus vaccine No [facility] 06-07-2014 influenza, injectabl e, quadrivalent, preservative free Nora Crespo LEAD GENERATION SPECIALIST.PILOT CAPTAIN Work Phone: [facility] Work Phone: 06-07-2014 influenza, seasonal, injectable, preservative free Nora Crespo LEAD GENERATION SPECIALIST.PILOT CAPTAIN Work Phone: [facility] Work Phone: 06-05-2014 influenza, seasonal, injectable Pascale Mata LEAD GENERATION SPECIALIST.PILOT CAPTAIN Work Phone: [facility] Work Phone: 06-05-2014 pneumococcal polysaccharide vaccine, 23 valent Pascale Mata LEAD GENERATION SPECIALIST.[facility] Work Phone: [facility] Work Phone: Payers Date Payer Category Payer Self-pay [id number] 2023 Unknown [id number] 2023 Medicare (Managed Care) [employer] [id number] 2022 Private Health Insurance [id number] 2022 Medicare [id number]. [id number] 2022 Medicaid [id number]. [id number]. [id number] 2015 Medicare [id number]. [id number] 2015 Unknown [id number] [id number]. [id number] 1956 Unknown [id number] 2.16.840.1.700370.3.579.2. 627 1956 Unknown [id number] 2.16.840.1.608266.3.579.2. 627 1956 Unknown [id number] 2.16.840.1.133812.3.579.2. 627 Private Health Insurance [facility]ly [facility] [id number] Unknown [id number] 2.840.1.980313.3.579.2. 462 Unknown [id number] 2.840.1.402213.3.579.2. 462 Unknown [id number] 2.16840.1.015446.3.579.2. 462 Unknown [id number] 2.16840.1.679555.3.579.2. 462 Unknown [id number] 2.16840.1.827360.3.579.2. 462 Unknown [id number] 2.16840.1.898581.3.579.2. 462 Unknown [id number] 2.16840.1.982181.3.579.2. 462 Unknown [id number] 2.16840.1.772974.3.579.2. 462 Unknown [id number] 2.16840.1.113123.3.579.2. 462 Unknown [id number] 2.16.840.1.569432.3.579.2. 462 Unknown [id number] 2.16.840.1.904716.3.579.2. 462 Unknown [id number] 2.16.840.1.140536.3.579.2. 462 Unknown [id number] 2.16.840.1.815907.3.579.2. 462 Unknown [id number] 2.16.840.1.650616.3.579.2. 462 Unknown [id number] 2.16.840.1.299397.3.579.2. 462 Unknown [id number] 2.16.840.1.750385.3.579.2. 462 Unknown [id number] 2.16.840.1.306178.3.579.2. 462 Unknown [id number] 2.16.840.1.156779.3.579.2. 462 Unknown [id number] 2.16.840.1.759176.3.579.2. 462 Unknown [id number] 2.16.840.1.390198.3.579.2. 462 Unknown [id number] 2.16.840.1.501715.3.579.2. 462 Unknown [id number] 2.16.840.1.108520.3.579.2. 462 Unknown [id number] 2.16.840.1.349175.3.579.2. 462 Unknown [id number] 2.16.840.1.062915.3.579.2. 462 Social History Date Type Detail Facility Start: 09-21-1983 End: 02-09-2025 Tobacco smoking status ALIS Current every day smoker [facility] Work Phone: Start: 09-21-1983 End: 09-21-2023 History of tobacco use Cigarette Smoker [facility] Start: 06-14-2021 End: 01-03-2025 Cigarettes smoked current (pack per day) - Reported [facility] Start: 06-14-2021 End: 06-16-2021 Tobacco use and exposure Current user [facility] Start: 06-14-2021 End: 06-16-2021 Alcohol intake Ex-drinker (finding) [facility] Work Phone: Start: 1955 Sex Assigned At Not on file S [facility] Work Phone: Exposure to SARS-CoV -2 (event) Yes [facility] Start: 01-04-2022 End: 01-20-2022 Exposure to SARS-CoV-2 (event) Not sure [facility] Start: 11-25-2021 End: 12-29-2023 Tobacco smoking status [facility] Unknown if ever smoked [facility] Start: 06-03-2020 None [facility] Start: 07-05-2020 - [facility] Start: 06-03-2020 With Family [facility] Start: 07-06-2020 Cigarettes [facility] Start: 1955 Sex Assigned At Female [facility] Start: 01-14-2022 End: 05-22-2025 Alcohol intake Current non-drinker of alcohol (finding) [facility] Start: 09-22-2019 End: 08-28-2022 Tobacco Comment [address] [facility] Start: 09-22-2019 End: 02-09-2025 Tobacco use and exposure Smokeless tobacco non-user [facility] Work Phone: Start: 09-23-2022 End: 05-27-2025 Tobacco smoking status [facility] Occasional tobacco smoker [facility] Work Phone: Start: 04-15-2023 End: 01-03-[address] [facility] Start: 08-08-[address] [facility] Start: 11-25-2023 End: 05-30-2024 Tobacco smoking status [facility] Ex-smoker [facility] Work Phone: Start: 09-21-1983 End: 09-21-2023 History of tobacco use Current smoker [facility] Work Phone: Start: 11-25-2023 Tobacco Comment 7 cigarette. Q uit in Middle of September 2023. [facility] Has the [employer], [place], or water Programeter threatened to shut off services in your home in past 12Mo No [facility] (I/We) worried whenathaly er (my/our) food would run out before (I/we) got money to buy more. Never true [facility] Tobacco smoking status [facility] Start: 04-07-2019 Tobacco smoking status Light t obacco smoker (finding) [facility] Are you now , , , , never or living with a partner? [facility] How often to you hav e a drink containing alcohol? Never [facility] Do you feel stress - tense, restless, nervous, or anxious, or unable to sleep at night because your mind is troubled all the time - these days [OSQ] Very much [facility] Start: 12-20-2024 End: 01-10-2025 Sex Female (finding) [facility] Start: 02-09-2025 Tobacco Comment 7 cigarette. Q uit in Middle of September 2023. Restarted February 2024 [facility] Medical Equipment Procedure Code Equipment Code Equipment [...] RX STENT/10 X 5CM FDA Start: 07-28-2023 [id number] FDA Start: 08-11-2022 Goals Date Patient Goal Desired Activity /State Functional Status Date Assessment Result Facility 05-29-2025 Functional status Ambulates [facility] Work Phone: 05-28-2025 Functional status Rolling Walker [facility] Work Phone: 09-29-2024 Functional status Ambulates [facility] Work Phone: 12-28-2023 Are you deaf, or do you have serious difficulty hearing No 12/28/2023 2:58 PM Layla Emmanuel, WENDY No [facility] 12-28-2023 Are you blind, or do you have serious difficulty seeing, even when wearing glasses No 12/28/2023 2:58 PM Layla Emmanuel, WENDY No [facility] 12-28-2023 Do you have serious difficulty walking or climbing stairs No 12/28/2023 2:58 PM Layla Emmanuel, WENDY No [facility] 12-28-2023 Do you have difficul ty dressing or bathing No 12/28/2023 2:58 PM Layla Emmanuel, WENDY No [facility] 12-28-2023 Because of a physica l, mental, or emotional condition, do you have difficulty doing errands alone such as visiting a physician's office or shopping Yes 12/28/2023 2:58 PM Layla Emmanuel, WENDY Yes [facility] 12-20-2023 Functional Status Environmental Safety Implemented Adequate room lighting, Bed in low position, Call device within reach, Non-Slip footwear, Patient specific safety measures, Traffic path in room free of clutter, Wheels locked [facility] 12-19-2023 Functional Status Standard Safet y ID band on, Call device within reach, Bed in low position, Wheels locked, Upper/Half-Length side-rails up, Bedside Cart Locked, Safety level maintained [place] 01-04-2023 Functional status Ambulates [facility] Work Phone: 01-20-2022 Functional status Ambulates [facility] Work Phone: 09-02-2021 Functional status Bathroom Privilege [facility] Work Phone: Mental Status Date Assessment Result Facility 05-29-2025 Cognitive function Voice/Name [facility] Work Phone: 12-20-2024 Cognitive function Awake;Alert;A ppropriate;Fol lows Commands [facility] Work Phone: 09-30-2024 Cognitive function Voice/Name [facility] Work Phone: 12-28-2023 Because of a physica l, mental, or emotional condition, do you have serious difficulty concentrating, remembering, or making decisions Yes 12/28/2023 2:58 PM Layla Emmanuel, WENDY Yes [facility] 12-19-2023 Mental Status Orientation Not oriented to time, Follows simple commands [place] 09-29-2023 Cognitive function Voice/Name [facility] Work Phone: 09-28-2023 Cognitive function Voice/Name [facility] Work Phone: 07-28-2023 Cognitive function Voice/Name [facility] Work Phone: 07-19-2023 Cognitive function Voice/Name [facility] Work Phone: 06-24-2023 Cognitive function Voice/Name [facility] Work Phone: 06-23-2023 Cognitive function Awake;Alert;Appropriat e [facility] Work Phone: 01-16-2023 Cognitive function Level Of Cons ciousness Awake;Alert;Appropriate;Fol lows Commands [facility] Work Phone: 01-12-2023 Cognitive function Level Of Cons ciousness Awake;Alert;Appropriate;Fol lows Commands [facility] Work Phone: 01-10-2023 Cognitive function Voice/Name [facility] Work Phone: 01-04-2023 Cognitive function Voice/Name [facility] Work Phone: 09-30-2022 Cognitive function Awake;Alert;A ppropriate;Fol lows Commands [facility] Work Phone: 08-23-2022 Cognitive function Awake;Alert;A ppropriate;Fol lows Commands [facility] Work Phone: 06-29-2022 Cognitive function Voice/Name [facility] Work Phone: 06-09-2022 Cognitive function Awake;Alert;Appropriat e [facility] Work Phone: 06-04-2022 Cognitive function Awake;Alert;A ppropriate;Fol lows Commands [facility] Work Phone: 02-26-2022 Cognitive function Level Of Cons ciousness Awake;Alert;Appropriate [facility] Work Phone: 01-20-2022 Cognitive function Voice/Name [facility] Work Phone: 01-01-2022 Cognitive function Voice/Name [facility] Work Phone: 11-17-2021 Cognitive function Level Of Cons ciousness Awake;Alert;Appropriate;Fol lows Commands [facility] Work Phone: 09-02-2021 Cognitive function Voice/Name [facility] Work Phone: Clinical Notes 04-16-2016 to 07-13-2025 Note Date & Type Note Facility 07-13-2025 Note HNO ID: [id number] Author: SAVANNAH CRUZ MSW Service: ? Author Type: Bench Carpenter Type: Progress Notes Filed: 07/14/2025 08:25 Note Text: VB / PC Social Work Progress Note Provider Action / FYI PCP Action FYI Date of Service: 07/13/2025 Referral Source: PCP Outreach Type: Follow Up Encounter Type: Phone Call Final Disposition: Other: Narrative: Sw spoke with Cisco Franco,[facility] patient leadership development manager. Priya notes that she spoke with patient recently and patient was not interested in moving from [facility]. Priya notes that there have been issues with son staying at [facility] and due to their housing regulations is not able to be there anymore at [facility]. Priya reports that she will follow up with patient and see if she is open to moving and if so would go over what assistance patient receives at [facility]. Priya reports that she is concerned with patient moving out of [facility] without her understanding all of the services that she receives assistance with at [place]. Priya notes that she will then follow up with patient son if patient is adamant about moving. GEORGETTE Khanna July 13, 2025 10:35 AM [facility] 07-12-2025 Note HNO ID: [id number] Author: SAVANNAH CRUZ MSW Service: ? Author Type: Bench Carpenter Type: Progress Notes Filed: 07/13/2025 10:39 Note Text: VB / PC Social Work Progress Note Provider Action / FYI PCP Action Date of Service: 07/05/2025 Referral Source: PCP Outreach Type: Follow Up Encounter Type: Phone Call Final Disposition: Other: Narrative: Sw left 2nd message for Cisco Franco [employer] to return this Sw call to discuss housing questions. GEORGETTE Khanna July 12, 2025 10:24 AM [facility] 07-05-2025 Note HNO ID: [id number] Author: SAVANNAH CRUZ MSW Service: ? Author Type: Bench Carpenter Type: Progress Notes Filed: 07/13/2025 10:39 Note Text: VB / PC Social Work Progress Note Provider Action / FYI PCP Action None needed Date of Service: 07/05/2025 Referral Source: PCP Outreach Type: Follow Up Encounter Type: Phone Call Final Disposition: Other: Narrative: Sw left message for Priya [facility] [employer] client care representative requesting that she give this SW a call back to discus patient current [place] housing and questions regarding moving in with son. GEORGETTE Khanna July 05, 2025 10:28 AM [facility] 07-05-2025 Note HNO ID: [id number] Author: SAVANNAH CRUZ MSW Service: ? Author Type: Bench Carpenter Type: Progress Notes Filed: 07/05/2025 10:29 Note Text: VB / PC Social Work Progress Note Provider Action / FYI PCP Action None needed at this time. Date of Service: 07/05/2025 Referral Source: PCP Outreach Type: Initial Encounter Type: Phone Call Final Disposition: Other: Reach out to [facility], Fence Maker for patient care needs. Narrative: Sw spoke with patient son Jose and patient was with son during phone call. Jose notes that patient resides at [facility]. Son notes that he helps patient with personal care, transportation, laundry, medication assistance. Jose notes that patient does have a client care representative through [facility] [employer], Priya Curtis. Jose notes that he also has POA forms and will bring in copy to scan to patient chart. Jose notes that patient also has had issues with missing medications at [facility] and they [place] to help with issue of missing medication. Jose notes that he and patient are looking at getting a place together as there are concerns regarding patient care at [facility] and son notes that he provides patient with most of her care. This Sw will call Priya at [facility] ph.[phone] and discuss with her in regards to reaching out to patient and son regarding [facility] and plan of care if patient should happen to move in with son. GEORGETTE Khanna July 05, 2025 9:28 AM [facility] 07-04-2025 Note HNO ID: [id number] Author: LYNDSEY ACEVEDO APRN.CYCLE CONSULTANT Service: ? Author Type: Nurse Specialist Type: Progress Notes Filed: 07/04/2025 10:35 Note Text: Subjective Patient ID: Marcia is a 69 year old female who presents for Hospital F/U ([facility] admitted 05/26/25 to 05/29/25.). HPI The patient is a 69-year-old female with heart failure with reduced ejection fraction and hiatal hernia, presenting for post-hospital follow-up. Accompanied by her son, who holds power of trial attorney and is providing history. She was last seen in internal medicine by Nora Crespo CNP March 2025. She noted anxiety depression chronic pain new onset of scalp pruritus and black spots on the scalp and also recent discontinuation of Ativan concerns. Notes indicate under stress considering bariatric surgery. Confusion is noted, UTI check for UTI. She was found to have UTI and treated with Macrobid. She was seen in [facility] and sent catheter for culture. She was started on mirtazapine at bedtime for anxiety depression and poor sleep quality. Her dose of duloxetine was increased. Resumed Ativan 1 mg 3 times daily. She was referred to behavioral health. She was prescribed medicated shampoo. She was seen in [facility] in May for a cough. She was a no-show with general surgery, Dr. Bush in May. She was admitted to [facility] on May 26, 2025 through May 29, 2025 for NSTEMI. She underwent heart catheterization. Did not require PCI. Medical management was recommended. She was continued on Xarelto for left mural thrombus. She was treated with Jardiance as well as Entresto for goal-directed therapy. Discontinued home ARB. Continue with Coreg, Lasix and Aldactone. Chest x-ray during admission showed findings consistent with CHF exacerbation. She was treated with IV Lasix during hospitalization for acute on chronic systolic heart failure. Maintain on fluid restriction of 1500 mL daily weight and electrolyte monitoring. Most recent echocardiogram 2021 showed ejection fraction of 30%, moderately dilated LV, 1+ mitral regurgitation. Echocardiogram completed during admission showed ejection fraction 25%. Lisinopril was discontinued during admission. 1 month follow-up with cardiology was recommended. Today reports Marcia Mascorro is a 69-year-old female with a history of CHF, hiatal hernia, and tobacco use, presenting for a hospital follow-up, accompanied by her son who is providing history on her behalf. Hospital Follow-Up: - Recent hospitalization for CHF exacerbation. - Medication changes made during hospitalization, including adjustments to Lasix. - Reports feeling shaky and weak since discharge. - Upcoming cardiology appointment next week. - Son has POA and is managing her care. - Currently resides in an assisted living facility; son is considering transitioning her to home care with nursing support. - Denies receiving flu or COVID booster shots recently. Hiatal Hernia: - Severe hiatal hernia; consulted with Dr. Chaudhary at [facility] in February. - Dr. Chaudhary recommended esophageal manometry and EGD prior to surgical repair. - Previous consultation with Dr. Tejada who declined to perform surgery due to Marcia age and complexity of the case. - Son is coordinating necessary tests and consultations for surgical planning. ROS Constitutional: (+) generalized weakness Skin: (+) scalp pruritus Neurological: (+) tremors Objective BP 88/66 Pulse (!) 57 Resp 16 Wt 74 kg (163 lb 2.3 oz) SpO2 92% BMI 28.20 kg/m? Physical Exam Vitals and nursing note reviewed. Constitutional: Appearance: Normal appearance. HENT: Head: Normocephalic and atraumatic. Eyes: Conjunctiva/sclera: Conjunctivae normal. Neck: Thyroid: No thyromegaly. Vascular: Normal carotid pulses. No JVD. Cardiovascular: Rate and Rhythm: Normal rate and regular rhythm. Pulses: Carotid pulses are 2+ on the right side and 2+ on the left side. Heart sounds: Normal heart sounds. Abdominal: General: Bowel sounds are normal. Palpations: Abdomen is soft. Skin: General: Skin is warm and dry. Neurological: General: No focal deficit present. Mental Status: She is alert and oriented to person, place, and time. Latest Ref Rng 03/14/2024 05/30/2024 09/14/2024 03/28/2025 WBC 3.70 - 11.00 k/uL 6.13 7.05 8.30 7.11 RBC 3.90 - 5.20 m/uL 4.10 4.41 4.31 4.30 Hemoglobin 11.5 - 15.5 g/dL 12.3 13.3 13.7 13.4 Hematocrit 36.0 - 46.0 % 39.1 42.1 42.6 41.7 MCV 80.0 - 100.0 fL 95.4 95.5 98.8 97.0 MCH 26.0 - 34.0 pg 30.0 30.2 31.8 31.2 MCHC 30.5 - 36.0 g/dL 31.5 31.6 32.2 32.1 RDW-CV 11.5 - 15.0 % 13.1 13.2 13.2 13.5 Platelet Count 150 - 400 k/uL 266 199 223 184 MPV 9.0 - 12.7 fL 9.9 9.9 10.2 10.5 Neut% % 47.7 42.9 51.0 Abs Neut (ANC) 1.45 - 7.50 k/uL 2.93 3.02 3.62 Lymph% % 38.5 44.1 38.1 Abs Lymph 1.00 - 4.00 k/uL 2.36 3.11 2.71 Rogers% % 6.4 7.2 7.0 Abs Rogers <0.87 k/uL 0.39 0.51 0.50 (more content not included)... [facility] 05-29-2025 Note [facility] 05-29-2025 Consult note Note Date/Time May 29, 2025 12:22pm [facility] Medical Records Department [address] [place] [address] Counseling Note - Pharmacy 05/29/25 1220 MR#: [id number] Acct: [id number] Name: MARCIA MASCORRO Rep #:[id number] : 1955 69 From: Elyse Pena PCP: Dr. Gabriel Galvan MD Status:AD M IN Location: [place] [address] [facility] Counseling Pharmacy Service has performed discharge medication reconciliation and counseling for this patient. 1. EMPAGLIFLOZIN 10MG PO DAILY 2. SACUBITRIL/VALSARTAN 24/26MG 0.5 TABLET PO BID 3. RIVAROXABAN 20MG PO DINNER 4. STOP LISINOPRIL AND CLOPIDOGREL The patient's discharge medication list was reviewed for discrepancies and discrepancies were resolved. The patient was counseled on the following discharge medications and changes in medications for homegoing were reviewed. The Reason for Use, instructions for use, and potential side effects were reviewed for all new medications. The patient's questions regarding all of their medications were answered. The patient was able to verbally demonstrate an understanding of their dischargemedications. Medications at Discharge Home Medications inhalational spacing device (Aerochamber MV spacer) #1 ea 02/17/23 tiotropium bromide 2.5 mcg/actuation mist for inhalation (Spiriva Respimat) 2 puff inhalation DAILY #4 grams 02/17/23 lorazepam 1 mg tablet (Ativan) 1 mg PO TID PRN anxiety 07/16/23 gabapentin 400 mg capsule 400 mg PO Q6H nerve pain 07/29/23 nitroglycerin 0.4 mg sublingual tablet 0.4 mg buccal Q5M PRN chest pain 07/29/23 sucralfate 1 gram tablet 1 g PO Q8H 07/29/23 melatonin 3 mg capsule 3 mg PO QHS sleep 09/05/23 albuterol 90 mcg-budesonide 80 mcg/actuation HFA aerosol inhaler (Airsupra) 1 - 2 inh inhalation BID PRN shortness of breath 09/28/24 atorvastatin 40 mg tablet 40 mg PO QHS cholesterol 09/28/24 bisacodyl 5 mg tablet,delayed release 5 mg PO DAILY PRN constipation 09/28/24 cholecalciferol (vitamin D3) 125 mcg (5,000 unit) capsule 125 mcg PO DAILY supplement 09/28/24 hydrocodone-acetaminophen 5-325mg 5mg-325mg 1 tab PO Q4H pain 09/28/24 polyethylene glycol 3350 17 gram/dose oral powder 17 g PO BID constipation 09/28/24 promethazine 25 mg tablet 25 mg PO PRN PRN nausea and vomiting 09/28/24 budesonide-formoterol HFA 160 mcg-4.5 mcg/actuation aerosol inhaler (Symbicort) 1 puff inhalation BID COPD #10.2 grams 09/30/24 carvedilol 25 mg tablet 25 mg PO BID heart #120 tabs 10/04/24 furosemide 40 mg tablet 40 mg PO QDAY diuretic #90 tabs 10/04/24 omeprazole 40 mg capsule,delayed release 40 mg PO QDAY GERD 01/13/25 potassium chloride 20 mEq tablet,extended release 20 meq PO QDAY supplement 01/13/25 sertraline 50 mg tablet 50 mg PO QDAY depression 01/13/25 spironolactone 25 mg tablet 25 mg PO QDAY blood pressure 01/13/25 empagliflozin 10 mg tablet (Jardiance) 10 mg PO DAILY 30 days #30 tabs 05/29/25 rivaroxaban 20 mg tablet (Xarelto) 20 mg PO DINNER 30 days #30 tabs 05/29/25 sacubitril 24 mg-valsartan 26 mg tablet 0.5 tab PO BID 30 days #30 tabs 05/29/25 05/29/25 1222 <Electronically signed by Elyse Pena> Date _ Elyse Pena Cosigner Signature (if applicable): Date CC: ~ Signed [facility] Work Phone: 1([phone]) 166-405609-22-2025 Discharge summary Author Jorgito Jackson [facility] Note Date/Time May 29, 2025 11:00am [facility] Medical Records Department [address] [place] [address] Instructions for Home/Discharge Instructions 05/29/25 1049 MR#: [id number] Acct: [id number] Name: MARCIA MASCORRO Rep #:[id number] : 1955 69 From: Jorgito zamorano MD PCP: Dr. Gabriel Galvan MD Status:AD M IN Discharge Instructions DC O2, CPAP, BIPAP needs Home O2 Discharge instructions: No Dressing / Incision Discharge Activity: Return to Normal Activity Dressing / Incision Call your doctor if you observe: Fever of 101 or Higher, Shortness of breath, Dizziness, Fainting spells, Swelling in the ankles, Chest pain and Increased palpitations (irregular heartbeat) Follow Up Care Test Results: Test results from this visit will be discussed in further detail at your follow- up appointment, if applicable. Discharge Plan Admission Admit Date/Time: 05/26/25 09:32 Attending Provider: Jorgito Jackson Primary Care Provider: Gabriel Galvan Consulting Providers: Rey Curtis; Regan Russo Discharge Orders/Prescriptions Prescriptions: New Xarelto 20 mg Tablet 20 mg PO DINNER 30 Days Qty: 30 0RF Jardiance 10 mg Tablet 10 mg PO DAILY 30 Days Qty: 30 0RF sacubitril-valsartan 24-26 mg Tablet 0.5 tab PO BID 30 Days Qty: 30 0RF Continued Spiriva Respimat 2.5 mcg/actuation mist 2 puff [...] Rx Instructions: must administer with a meal/food omeprazole 40 mg capsule,delayed release(DR/EC) 40 mg PO QDAY spironolactone 25 mg tablet 25 mg PO QDAY sertraline 50 mg tablet 50 mg PO QDAY potassium chloride 20 mEq tablet extended release 20 meq PO QDAY melatonin 3 mg capsule 3 mg PO QHS gabapentin 400 mg capsule 400 mg PO Q6H nitroglycerin 0.4 mg tablet, sublingual 0.4 mg buccal Q5M PRN (Reason: chest pain) sucralfate 1 gram tablet 1 g PO Q8H promethazine 25 mg tablet 25 mg PO PRN PRN (Reason: nausea and vomiting) hydrocodone-acetaminophen 5-325 mg tablet 1 tab PO [...] (5,000 unit) capsule 125 mcg PO DAILY budesonide-formoterol [Symbicort] 160-4.5 mcg/actuation HFA aerosol inhaler 1 puff inhalation BID Qty: 10.2 0RF Discontinued clopidogrel 75 mg tablet 75 mg PO QDAY lisinopril 5 mg tablet 5 mg PO DAILY Referrals / Follow Up: Rey Curtis MD [Med Staff - Active Staff, Cardiology] - Within 1 Month Gabriel Galvan MD [Primary Care Provider, Internal Medicine] - Within 1 Week Disposition Disposition (needs filled in before D/C Order can be placed): Home, Self Care 05/29/25 1100<Electronically signed by Jorgito Jackson MD>Jorgito Jackson MD CC: Dr. Rey Curtis MD; Dr. Gabriel Galvan MD; Dr. Regan Russo MD ~ Signed [facility] Work Phone: 1(638) 679-830809-22-2025 Consult note [facility] Medical Records Department [address] [place] [address] Counseling Note - Pharmacy 05/29/25 1220 MR#: [id number] Acct: [id number] Name: MARCIA MASCORRO Rep #:[id number] : 1955 69 From: Elyse Pena PCP: Dr. Gabriel Galvan MD Status:AD M IN Location: [place] [address] [facility] Counseling Pharmacy Service has performed discharge medication reconciliation and counseling for this patient. 1. EMPAGLIFLOZIN 10MG PO DAILY 2. SACUBITRIL/VALSARTAN 24/26MG 0.5 TABLET PO BID 3. RIVAROXABAN 20MG PO DINNER 4. STOP LISINOPRIL AND CLOPIDOGREL The patient's discharge medication list was reviewed for discrepancies and discrepancies were resolved. The patient was counseled on the following discharge medications and changes in medications for homegoing were reviewed. The Reason for Use, instructions for use, and potential side effects were reviewed for all new medications. The patient's questions regarding all of their medications were answered. The patient was able to verbally demonstrate an understanding of their dischargemedications. Medications at Discharge Home Medications inhalational spacing device (Aerochamber MV spacer) #1 ea 02/17/23 tiotropium bromide 2.5 mcg/actuation mist for inhalation (Spiriva Respimat) 2 puff inhalation DAILY#4 grams 02/17/23 lorazepam 1 mg tablet (Ativan) 1 mg PO TID PRN anxiety 07/16/23 gabapentin 400 mg capsule 400 mg PO Q6H nerve pain 07/29/23 nitroglycerin 0.4 mg sublingual tablet 0.4 mg buccal Q5M PRN chest pain 07/29/23 sucralfate 1 gram tablet 1 g PO Q8H 07/29/23 melatonin 3 mg capsule 3 mg PO QHS sleep 09/05/23 albuterol 90 mcg-budesonide 80 mcg/actuation HFA aerosol inhaler (Airsupra) 1 - 2 inh inhalation BID PRN shortness of breath 09/28/24 atorvastatin 40 mg tablet 40 mg PO QHS cholesterol 09/28/24 bisacodyl 5 mg tablet,delayed release 5 mg PO DAILY PRN constipation 09/28/24 cholecalciferol (vitamin D3) 125 mcg (5,000 unit) capsule 125 mcg PO DAILY supplement 09/28/24 hydrocodone-acetaminophen 5-325mg 5mg-325mg 1 tab PO Q4H pain 09/28/24 polyethylene glycol 3350 17 gram/dose oral powder 17 g PO BID constipation 09/28/24 promethazine 25 mg tablet 25 mg PO PRN PRN nausea and vomiting 09/28/24 budesonide-formoterol HFA 160 mcg-4.5 mcg/actuation aerosol inhaler (Symbicort) 1 puff inhalation BID COPD #10.2 grams 09/30/24 carvedilol 25 mg tablet 25 mg PO BID heart #120 tabs 10/04/24 furosemide 40 mg tablet 40 mg PO QDAY diuretic #90 tabs 10/04/24 omeprazole 40 mg capsule,delayed release 40 mg PO QDAY GERD 01/13/25 potassium chloride 20 mEq tablet,extended release 20 meq PO QDAY supplement 01/13/25 sertraline 50 mg tablet 50 mg PO QDAY depression 01/13/25 spironolactone 25 mg tablet 25 mg PO QDAY blood pressure 01/13/25 empagliflozin 10 mg tablet (Jardiance) 10 mg PO DAILY 30 days #30 tabs 05/29/25 rivaroxaban 20 mg tablet (Xarelto) 20 mg PO DINNER 30 days #30 tabs 05/29/25 sacubitril 24 mg-valsartan 26 mg tablet 0.5 tab PO BID 30 days #30 tabs 05/29/25 05/29/25 1222 Date _ Elyse Dodson Signature (if applicable): Date CC: ~ Signed [facility]09-22-2025 Discharge summary [facility] Medical Records Department [address] [place] [address] Instructions for Home/Discharge Instructions 05/29/25 1049 MR#: [id number] Acct: [id number] Name: MARCIA MASCORRO Rep #:[id number] : 1955 69 From: Jorgito zamorano MD PCP: Dr. Gabriel Galvan MD Status:AD M IN Discharge Instructions DC O2, CPAP, BIPAP needs Home O2 Discharge instructions: No Dressing / Incision Discharge Activity: Return to Normal Activity Dressing / Incision Call your doctor if you observe: Fever of 101 or Higher, Shortness of breath, Dizziness, Fainting spells, Swelling in the ankles, Chest pain and Increased palpitations (irregular heartbeat) Follow Up Care Test Results: Test results from this visit will be discussed in further detail at your follow- up appointment, if applicable. Discharge Plan Admission Admit Date/Time: 05/26/25 09:32 Attending Provider: Jorgito Jackson Primary Care Provider: Gabriel Galvan Consulting Providers: Rey Curtis; Regan Russo Discharge Orders/Prescriptions Prescriptions: New Xarelto 20 mg Tablet 20 mg PO DINNER 30 Days Qty: 30 0RF Jardiance 10 mg Tablet 10 mg PO DAILY 30 Days Qty: 30 0RF sacubitril-valsartan 24-26 mg Tablet 0.5 tab PO BID 30 Days Qty: 30 0RF Continued Spiriva Respimat 2.5 mcg/actuation mist 2 puff [...] Rx Instructions: must administer with a meal/food omeprazole 40 mg capsule,delayed release(DR/EC) 40 mg PO QDAY spironolactone 25 mg tablet 25 mg PO QDAY sertraline 50 mg tablet 50 mg PO QDAY potassium chloride 20 mEq tablet extended release 20 meq PO QDAY melatonin 3 mg capsule 3 mg PO QHS gabapentin 400 mg capsule 400 mg PO Q6H nitroglycerin 0.4 mg tablet, sublingual 0.4 mg buccal Q5M PRN (Reason: chest pain) sucralfate 1 gram tablet 1 g PO Q8H promethazine 25 mg tablet 25 mg PO PRN PRN (Reason: nausea and vomiting) hydrocodone-acetaminophen 5-325 mg tablet 1 tab PO [...] (5,000 unit) capsule 125 mcg PO DAILY budesonide-formoterol [Symbicort] 160-4.5 mcg/actuation HFA aerosol inhaler 1 puff inhalation BID Qty: 10.2 0RF Discontinued clopidogrel 75 mg tablet 75 mg PO QDAY lisinopril 5 mg tablet 5 mg PO DAILY Referrals / Follow Up: Rey Curtis MD [Med Staff - Active Staff, Cardiology] - Within 1 Month Gabriel Galvan MD [Primary Care Provider, Internal Medicine] - Within 1 Week Disposition Disposition (needs filled in before D/C Order can be placed): Home, Self Care 05/29/25 Viktor Jackson MD CC: Dr. Rey Curtis MD; Dr. Gabriel Galvan MD; Dr. Regan Russo MD ~ Signed [facility]09-22-2025 Progress note Author Rey Curtis [facility] Note Date/Time May 29, 2025 8:51am [facility] Medical Records Department [address] [place] [address] Progress Note - Cardiology 05/29/25 0850 MR#: [id number] Acct: [id number] Name: MARCIA MASCORRO Rep #:[id number] : 1955 69 From: Rey Curtis MD PCP: Dr. Gabriel Galvan MD Status:AD M IN Location: [place] [address] Subjective Subjective Patient seen and evaluated. Underwent cardiac catheterization today Objective Data Vital Signs: Vital Signs Temp Pulse Resp BP Pulse Ox O2 Del Method O2 Flow Rate 97.8 F 62 18 132/88 H 99 Nasal Cannula 3 05/29/25 05:10 05/29/25 06:55 05/29/25 06:55 05/29/25 05:10 05/29/25 05:10 05/29/25 07:45 05/29/25 07:45 Oxygen Flow Rate (L/min) 3 Oxygen Delivery Method Nasal Cannula Weight: 163 lb 5.8 oz Body Mass Index (BMI) 27.1 Intake & Output: Intake and Output for Last 24 Hours 05/27/25 05/28/25 05/29/25 23:59 23:59 23:59 Intake Total 2018.39 / 2258.39 745.04 / 745.04 42.47 / 42.47 Output Total 2350 / 2750 1200 / 1200 300 / 300 Balance -331.61 / -491.61 -454.96 / -454.96 -257.53 / -257.53 Lab / Micro Data 05/29/25 05:00 05/29/25 05:00 Labs: Laboratory Results - last 24 hr 05/28/25 15:30: APTT 46.3 H 05/28/25 22:50: WBC 10.7, RBC 3.99 L, Hgb 12.9, Hct 38.2, MCV 95.7, MCH 32.3 H, MCHC 33.8, RDW Std Deviation 48.9 H, RDW Coeff of Sariah 14.0, Plt Count 202, MPV 9.8, APTT 57.2 H 05/29/25 05:00: WBC 11.0, RBC 4.09 L, Hgb 13.0, Hct 39.4, MCV 96.3, MCH 31.8, MCHC 33.0, RDW Std Deviation 48.9 H, RDW Coeff of Sariah 14.1, Plt Count 201, MPV 9.7, Immature Gran % (Auto) 0.500, Neut % (Auto) 58.8, Lymph % (Auto) 30.8, Rogers% (Auto) 9.3, Eos % (Auto) 0.5, Baso % (Auto) 0.1, Absolute Neuts (auto) 6.5, Absolute Lymphs (auto) 3.39, Nucleated RBC % 0, Sodium 139, Potassium 3.3, Chloride 98, Carbon Dioxide 31.7, Anion Gap 10, BUN 28 H, Creatinine 0.76, EstimCreat Clear Calc 67.83, Est GFR (MDRD) Non-Af 85, BUN/Creatinine Ratio 36.7 H, Glucose 103 H, Calcium 9.2, Magnesium 2.0 Micro: Microbiology 05/26/25 13:11 Blood Culture (Wb) - Right Hand Blood Culture - Preliminary No growth in 48 hours. 05/26/25 13:02 Blood Culture (Wb) - Right Wrist Blood Culture - Preliminary No growth in 48 hours. Cardiology Labs/Tests 05/28/25 15:30: APTT 46.3 H 05/28/25 22:50: WBC 10.7, RBC 3.99 L, Hgb 12.9, Hct 38.2, MCV 95.7, MCH 32.3 H, MCHC 33.8, Plt Count 202, MPV 9.8, APTT 57.2 H 05/29/25 05:00: WBC 11.0, RBC 4.09 L, Hgb 13.0, Hct 39.4, MCV 96.3, MCH 31.8, MCHC 33.0, Plt Count 201, MPV 9.7, Immature Gran % (Auto) 0.500, Neut % (Auto) 58.8, Lymph % (Auto) 30.8, Rogers % (Auto) 9.3, Eos % (Auto) 0.5, Baso % (Auto) 0.1, Absolute Neuts (auto) 6.5, Nucleated RBC % 0, Sodium 139, Potassium 3.3, Chloride 98, Carbon Dioxide 31.7, Anion Gap 10, BUN 28 H, Creatinine 0.76, Est GFR (MDRD) Non-Af 85, BUN/Creatinine Ratio 36.7 H, Glucose 103 H, Calcium 9.2, Magnesium 2.0 Rhythm: EKG: ECHO: Stress Test: Cardiac Cath: PCI: CT Surgery: Holter monitor: EPS: PPM: CXR: Chest CT Scan: Physical Exam Const alert, oriented x3 and no apparent distress General Appearance: cooperative HEENT hearing grossly normal bilaterally Head and Scalp: atraumatic Eyes EOMs intact bilaterally Neck General: normal visual inspection Chest inspection of chest normal and palpation of chest normal Resp normal respiratory effort Auscultation: clear to auscultation bilaterally Cardio regular rate, regular rhythm, S1 normal heart sound and S2 normal heart sound Jugular Venous Distention: JVD GI normal to inspection, nondistended, normoactive bowel sounds Extremity normal capillary refill and no pedal edema Peripheral Pulses: Yes pulses 2+ throughout and femoral pulses present Skin no rashes or lesions noted Neuro oriented x3 and CN's II-XII intact bilaterally Psych Appearance: grossly normal and appropriate Assessment & Plan Assessment/Plan (1) NSTEMI, initial episode of care: PLAN: Patient presents with atypical chest discomfort which has been chronic Cardiac catheterization today demonstrated mild to moderate disease in the rightcoronary artery, mild to moderate left anterior descending artery disease and moderate disease noted in the distal left anterior descending artery in an area with an akinetic zone. Recommend aggressive medical therapy. (2) LV (left ventricular) mural thrombus: PLAN: She does have a previous history of a left ventricular mural thrombus. Will recommend resuming Xarelto 20 mg a day starting this evening. Patient can be discharged home follow-up outpatient follow-up (3) Ischemic cardiomyopathy: PLAN: She does have a history of ischemic cardiomyopathy and will institute guideline directed medical therapy with carvedilol, an ARB or ARNI, and an EYGL1kidfrkakk. (4) Essential hypertension: PLAN: Her blood pressure appears to be under fair control the plan to be to continue this without making any major changes. (5) Hyperlipidemia: QUALIFIERS: Hyperlipidemia type: unspecified Qualified Code(s): E78.5 - Hyperlipidemia, unspecified PLAN: She does have a history of hyperlipidemia and will continue with high intensity statin. 05/29/25 0851 <Electronically signed by Rey Curtis MD> Cosigner Signature (if applicable): CC: ~ Signed [facility] Work Phone: 1(842) 346-955109-22-2025 Progress note [facility] Medical Records Department [address] [place] [address] Progress Note - Cardiology 05/29/25 0850 MR#: [id number] Acct: [id number] Name: MARCIA MASCORRO Rep #:[id number] : 1955 69 From: Rey Curtis MD PCP: Dr. Gabriel Galvan MD Status:AD M IN Location: [place] [address] Subjective Subjective Patient seen and evaluated. Underwent cardiac catheterization today Objective Data Vital Signs: Vital Signs Temp Pulse Resp BP Pulse Ox O2 Del Method O2 Flow Rate 97.8 F 62 18 132/88 H 99 Nasal Cannula 3 05/29/25 05:10 05/29/25 06:55 05/29/25 06:55 05/29/25 05:10 05/29/25 05:10 05/29/25 07:45 05/29/25 07:45 Oxygen Flow Rate (L/min) 3 Oxygen Delivery Method Nasal Cannula Weight: 163 lb 5.8 oz Body Mass Index (BMI) 27.1 Intake & Output: Intake and Output for Last 24 Hours 05/27/25 05/28/25 05/29/25 23:59 23:59 23:59 Intake Total 2018.39 / 2258.39 745.04 / 745.04 42.47 / 42.47 Output Total 2350 / 2750 1200 / 1200 300 / 300 Balance -331.61 / -491.61 -454.96 / -454.96 -257.53 / -257.53 Lab / Micro Data 05/29/25 05:00 05/29/25 05:00 Labs: Laboratory Results - last 24 hr 05/28/25 15:30: APTT 46.3 H 05/28/25 22:50: WBC 10.7, RBC 3.99 L, Hgb 12.9, Hct 38.2, MCV 95.7, MCH 32.3 H, MCHC 33.8, RDW Std Deviation 48.9 H, RDW Coeff of Sariah 14.0, Plt Count 202, MPV 9.8, APTT 57.2 H 05/29/25 05:00: WBC 11.0, RBC 4.09 L, Hgb 13.0, Hct 39.4, MCV 96.3, MCH 31.8, MCHC 33.0, RDW Std Deviation 48.9 H, RDW Coeff of Sariah 14.1, Plt Count 201, MPV 9.7, Immature Gran % (Auto) 0.500, Neut % (Auto) 58.8, Lymph % (Auto) 30.8, Rogers% (Auto) 9.3, Eos % (Auto) 0.5, Baso % (Auto) 0.1, Absolute Neuts (auto) 6.5, Absolute Lymphs (auto) 3.39, Nucleated RBC % 0, Sodium 139, Potassium 3.3, Chloride 98, Carbon Dioxide 31.7, Anion Gap 10, BUN 28 H, Creatinine 0.76, EstimCreat Clear Calc 67.83, Est GFR (MDRD) Non-Af 85, BUN/Creatinine Ratio 36.7 H, Glucose 103 H, Calcium 9.2, Magnesium 2.0 Micro: Microbiology 05/26/25 13:11 Blood Culture (Wb) - Right Hand Blood Culture - Preliminary No growth in 48 hours. 05/26/25 13:02 Blood Culture (Wb) - Right Wrist Blood Culture - Preliminary No growth in 48 hours. Cardiology Labs/Tests 05/28/25 15:30: APTT 46.3 H 05/28/25 22:50: WBC 10.7, RBC 3.99 L, Hgb 12.9, Hct 38.2, MCV 95.7, MCH 32.3 H, MCHC 33.8, Plt Count 202, MPV 9.8, APTT 57.2 H 05/29/25 05:00: WBC 11.0, RBC 4.09 L, Hgb 13.0, Hct 39.4, MCV 96.3, MCH 31.8, MCHC 33.0, Plt Count 201, MPV 9.7, Immature Gran % (Auto) 0.500, Neut % (Auto) 58.8, Lymph % (Auto) 30.8, Rogers % (Auto) 9.3, Eos % (Auto) 0.5, Baso % (Auto) 0.1, Absolute Neuts (auto) 6.5, Nucleated RBC % 0, Sodium 139, Potassium 3.3, Chloride 98, Carbon Dioxide 31.7, Anion Gap 10, BUN 28 H, Creatinine 0.76, Est GFR (MDRD) Non-Af 85, BUN/Creatinine Ratio 36.7 H, Glucose 103 H, Calcium 9.2, Magnesium 2.0 Rhythm: EKG: ECHO: Stress Test: Cardiac Cath: PCI: CT Surgery: Holter monitor: EPS: PPM: CXR: Chest CT Scan: Physical Exam Const alert, oriented x3 and no apparent distress General Appearance: cooperative HEENT hearing grossly normal bilaterally Head and Scalp: atraumatic Eyes EOMs intact bilaterally Neck General: normal visual inspection Chest inspection of chest normal and palpation of chest normal Resp normal respiratory effort Auscultation: clear to auscultation bilaterally Cardio regular rate, regular rhythm, S1 normal heart sound and S2 normal heart sound Jugular Venous Distention: JVD GI normal to inspection, nondistended, normoactive bowel sounds Extremity normal capillary refill and no pedal edema Peripheral Pulses: Yes pulses 2+ throughout and femoral pulses present Skin no rashes or lesions noted Neuro oriented x3 and CN's II-XII intact bilaterally Psych Appearance: grossly normal and appropriate Assessment & Plan Assessment/Plan (1) NSTEMI, initial episode of care: PLAN: Patient presents with atypical chest discomfort which has been chronic Cardiac catheterization today demonstrated mild to moderate disease in the rightcoronary artery, mild to moderate left anterior descending artery disease and moderate disease noted in the distal leftanterior descending artery in an area with an akinetic zone. Recommend aggressive medical therapy. (2) LV (left ventricular) mural thrombus: PLAN: She does have a previous history of a left ventricular mural thrombus. Will recommend resuming Xarelto 20 mg a day starting this evening. Patient can be discharged home follow-up outpatient follow-up (3) Ischemic cardiomyopathy: PLAN: She does have a history of ischemic cardiomyopathy and will institute guideline directed medical therapy with carvedilol, an ARB or ARNI, and an [id number]. (4) Essential hypertension: PLAN: Her blood pressure appears to be under fair control the plan to be to continue this without making any major changes. (5) Hyperlipidemia: QUALIFIERS: Hyperlipidemia type: unspecified Qualified Code(s): E78.5 - Hyperlipidemia, unspecified PLAN: She does have a history of hyperlipidemia and will continue with high intensity statin. 05/29/25 0851 Cosigner Signature (if applicable): CC: ~ Signed [facility]09-21-2025 Progress note Author Jorgito Jackson [facility] Note Date/Time May 28, 2025 11:18am [facility] Medical Records Department [address] [place] [address] Progress Note - Hospitalist 05/28/25 1116 MR#: [id number] Acct: [id number] Name: MARCIA MASCORRO Rep #:[id number] : 1955 69 From: Jorgito zamorano MD PCP: Dr. Gabriel Galvan MD Status:AD M IN Location: [place] [address] Subjective Subjective No issues overnight, denies any chest pain currently. Breathing little bit better. She does have agitation from steroids so we will decrease dose Objective Data Objective Data Vital Signs: Vital Signs Temp Pulse Resp BP Pulse Ox O2 Del Method O2 Flow Rate 97.8 F 71 18 95/70 92 Nasal Cannula 3 05/28/25 08:58 05/28/25 08:58 05/28/25 08:58 05/28/25 08:58 05/28/25 08:58 05/28/25 09:00 05/28/25 09:00 Oxygen Flow Rate (L/min) 3 Oxygen Delivery Method Nasal Cannula Weight: 168 lb 10.458 oz Body Mass Index (BMI) 28.0 Intake & Output: Intake and Output for Last 24 Hours 05/27/25 05/28/25 05/29/25 03:59 03:59 03:59 Intake Total 716.62 / 716.62 1917.31 / 1917.31 331.03 / 331.03 Output Total 1100 / 1100 1650 / 1650 400 / 400 Balance -383.38 / -383.38 267.31 / 267.31 -68.97 / -68.97 Lab / Micro Data 05/27/25 03:51 05/27/25 03:51 Labs: Laboratory Results - last 24 hr 05/27/25 11:40: APTT 52.0 H 05/27/25 18:29: APTT 52.2 H 05/28/25 00:34: APTT 50.0 H 05/28/25 07:28: APTT 108.1 H* Micro: Microbiology 05/27/25 20:50 Urine, Clean Catch Streptococcus pneumoniae Antigen (M - Final 05/26/25 14:14 Mucosa - Nasopharyngeal Respiratory Panel (PCR) - Final 05/26/25 13:12 Nasal Secretion MRSA (PCR) - Final 05/26/25 13:12 Mucosa - Nose Coronavirus COVID-19 PCR - Final Physical Exam Narrative General: Alert, Oriented x3, Cooperative, No apparent distress HEENT: Atraumatic, PERRLA, EOMI, Normocephalic Oral: Moist Mucosa Neck: Supple Lungs: Diminished, Normal air movement, No rhonchi, No wheeze, No rales Cardiovascular: Regular rate, Regular Rhythm, Normal S1, Normal S2, No murmurs Abdomen: Soft, Non Tender, Non-Distended, No Hepato-splenomegaly Extremities: No edema, Capillary Refill Less than 3 Seconds Skin: No rashes, No breakdown Musculoskeletal: No Tenderness to Palpation of Joints or Extremities Neurological: No focal neurological deficits, Motor Exam 5/5 strength throughout, Sensory exam intact to light touch and pain Psych/Mental Status: Normal Affect, Appropriate Assessment & Plan Assessment/Plan (1) NSTEMI, initial episode of care: PLAN: Plan 1. Atypical chest pain possible non-STEMI with contribution from panic/anxiety and COPD exacerbation: Patient is being admitted to PCU on telemetry. Started on baby aspirin, IV morphine and IV heparin drip. Home medication carvedilol, Plavix and atorvastatin regimen. Nitroglycerin ointment ordered. Twelve-lead EKG shows NSR 72 bpm, QTc 424 ms. QRS 128 ms. Troponins are 18, 102 and 598. proBNP about 3000. CELESTE risk score 5/7 with 26.6% risk of mortality from [place]/recurrent ischemia event in next 2 weeks. Triple Valve Tester consulted. Patient has significant contusion for anxiety and panic therefore IV Ativan 1 dose 0.5 mg ordered. Patient on Ativan 1 mg 3 times daily at home. 05/27: Seen by manager plan. Atypical chest discomfort which may be chronic. Triple Valve Tester recommended cardiac cath on Thursday. Patient has previous history of LV mural thrombus and echo corroborates that. On IV heparin drip and recommended DOAC after cardiac cath 05/28/2025: Plan for heart cath tomorrow morning, appreciate cardiology's assistance 2. COPD exacerbation: Patient is on send she is on antibiotic but is not seen on patient's home medication. Chest x-ray initially reviewed and shows perihilar congestion/venous congestion consistent with CHF exacerbation. No specific consolidation seen. Patient is being managed on scheduled bronchodilator, IV Solu-Medrol, Mucinex, incentive spirometry and Pep. 05/27: Respiratory panel MRSA nasal screen and COVID tests are negative. Continue bronchodilator and steroid. Encouraged incentive spirometry. 05/28/2025: Decrease from 3 times daily dosing of her steroids to just daily dosing of p.o. prednisone 3. CHF exacerbation: Started on IV Lasix. Heart failure core measures including intake and output, fluid restriction less than 1500 mL, daily weight monitoring, kidney and electrolytes monitoring. Last echo in July 2022 shows EF 30% moderately dilated LV, 1+ MR. 05/27: Lipid profile shows LDL 123. HDL normal. TSH normal. Echo shows EF 25%. Continue guideline directed medical therapy with carvedilol, ARNI and SGLT inhibitor. Lisinopril discontinued 4. Peripheral arterial disease ? Patient is on antiplatelet therapy as well as statin therapy, atorvastatin continued 5. Dyslipidemia ?Patient is on statin therapy, continued at home dose 7. Hypertension ? Blood pressure elevated, home medications continued with dose adjustment as needed 8. Depression with anxiety - Patient on sertraline and lorazepam 1 mg p.o. 3 times daily as needed. Continued 9. Chronic pain syndrome ? Patient follows Dr. Forrest. On [place] at home. Patient's son stated that she is on sustained-release oxycodone or morphine but not found on the patient's home med list. 10. Hyperglycemia Glucose elevated 122. Probably due to recurrent Solu-Medrol/steroid DVT: Heparin drip Charges/Coding Visit Charges Inpatient E&M: 08886 Subs Hosp L2 05/28/25 1118 <Electronically signed by Jorgito Jackson MD> Cosigner Signature (if applicable): CC: ~ Signed [facility] Work Phone: 1(466) 378-855409-21-2025 Progress note [facility] Medical Records Department [facility] [place] [address] Progress Note - Hospitalist 05/28/25 1116 MR#: [id number] Acct: [id number] Name: MARCIA MASCORRO Rep #:[id number] : 1955 69 From: Jorgito zamorano MD PCP: Dr. Gabriel Galvan MD Status:AD M IN Location: [place] [address] Subjective Subjective No issues overnight, denies any chest pain currently. Breathing little bit better. She does have agitation from steroids so we will decrease dose Objective Data Objective Data Vital Signs: Vital Signs Temp Pulse Resp BP Pulse Ox O2 Del Method O2 Flow Rate 97.8 F 71 18 95/70 92 Nasal Cannula 3 05/28/25 08:58 05/28/25 08:58 05/28/25 08:58 05/28/25 08:58 05/28/25 08:58 05/28/25 09:00 05/28/25 09:00 Oxygen Flow Rate (L/min) 3 Oxygen Delivery Method Nasal Cannula Weight: 168 lb 10.458 oz Body Mass Index (BMI) 28.0 Intake & Output: Intake and Output for Last 24 Hours 05/27/25 05/28/25 05/29/25 03:59 03:59 03:59 Intake Total 716.62 / 716.62 1917.31 / 1917.31 331.03 / 331.03 Output Total 1100 / 1100 1650 / 1650 400 / 400 Balance -383.38 / -383.38 267.31 / 267.31 -68.97 / -68.97 Lab / Micro Data 05/27/25 03:51 05/27/25 03:51 Labs: Laboratory Results - last 24 hr 05/27/25 11:40: APTT 52.0 H 05/27/25 18:29: APTT 52.2 H 05/28/25 00:34: APTT 50.0 H 05/28/25 07:28: APTT 108.1 H* Micro: Microbiology 05/27/25 20:50 Urine, Clean Catch Streptococcus pneumoniae Antigen (M - Final 05/26/25 14:14 Mucosa - Nasopharyngeal Respiratory Panel (PCR) - Final 05/26/25 13:12 Nasal Secretion MRSA (PCR) - Final 05/26/25 13:12 Mucosa - Nose Coronavirus COVID-19 PCR - Final Physical Exam Narrative General: Alert, Oriented x3, Cooperative, No apparent distress HEENT: Atraumatic, PERRLA, EOMI, Normocephalic Oral: Moist Mucosa Neck: Supple Lungs: Diminished, Normal air movement, No rhonchi, No wheeze, No rales Cardiovascular: Regular rate, Regular Rhythm, Normal S1, Normal S2, No murmurs Abdomen: Soft, Non Tender, Non-Distended, No Hepato-splenomegaly Extremities: No edema, Capillary Refill Less than 3 Seconds Skin: No rashes, No breakdown Musculoskeletal: No Tenderness to Palpation of Joints or Extremities Neurological: No focal neurological deficits, Motor Exam 5/5 strength throughout, Sensory exam intact to light touch and pain Psych/Mental Status: Normal Affect, Appropriate Assessment & Plan Assessment/Plan (1) NSTEMI, initial episode of care: PLAN: Plan 1. Atypical chest pain possible non-STEMI with contribution from panic/anxiety and COPD exacerbation: Patient is being admitted to PCU on telemetry. Started on baby aspirin, IV morphine and IV heparin drip. Home medication carvedilol, Plavix and atorvastatin regimen. Nitroglycerin ointment ordered.Twelve-lead EKG shows NSR 72 bpm, QTc 424 ms. QRS 128 ms. Troponins are 18, 102 and 598. proBNP about 3000. CELESTE risk score 5/7 with 26.6% risk of mortality from [place]/recurrent ischemia event in next 2weeks. Triple Valve Tester consulted. Patient has significant contusion for anxiety and panic therefore IVAtivan 1 dose 0.5 mg ordered. Patient on Ativan 1 mg 3 times daily at home. 05/27: Seen by manager plan. Atypical chest discomfort which may be chronic. Triple Valve Tester recommended cardiac cath on Thursday. Patient has previous history of LV mural thrombus and echo corroborates that. On IV heparin drip and recommended DOAC after cardiac cath 05/28/2025: Plan for heart cath tomorrow morning, appreciate cardiology's assistance 2. COPD exacerbation: Patient is on send she is on antibiotic but is not seen on patient's home medication. Chest x-ray initially reviewed and shows perihilar congestion/venous congestion consistent with CHF exacerbation. No specific consolidation seen. Patient is being managed on scheduled bronchodilator, IV Solu-Medrol, Mucinex, incentive spirometry and Pep. 05/27: Respiratory panel MRSA nasal screen and COVID tests are negative. Continue bronchodilator andsteroid. Encouraged incentive spirometry. 05/28/2025: Decrease from 3 times daily dosing of her steroids to just daily dosing of p.o. prednisone 3. CHF exacerbation: Started on IV Lasix. Heart failure core measures including intake and output, fluid restriction less than 1500 mL, daily weight monitoring, kidney and electrolytes monitoring. Last echo in July 2022 shows EF 30% moderately dilated LV, 1+ MR. 05/27: Lipid profile shows LDL 123. HDL normal. TSH normal. Echo shows EF 25%. Continue guideline directed medical therapy with carvedilol, ARNI and SGLT inhibitor. Lisinopril discontinued 4. Peripheral arterial disease ? Patient is on antiplatelet therapy as well as statin therapy, atorvastatin continued 5. Dyslipidemia ?Patient is on statin therapy, continued at home dose 7. Hypertension ? Blood pressure elevated, home medications continued with dose adjustment as needed 8. Depression with anxiety - Patient on sertraline and lorazepam 1 mg p.o. 3 times daily as needed. Continued 9. Chronic pain syndrome ? Patient follows Dr. Forrest. On [place] at home. Patient's son stated that she is on sustained-release oxycodone or morphine but not found on the patient's home med list. 10. Hyperglycemia Glucose elevated 122. Probably due to recurrent Solu-Medrol/steroid DVT: Heparin drip Charges/Coding Visit Charges Inpatient E&M: 97742 Subs Hosp L2 05/28/25 1118 Cosigner Signature (if applicable): CC: ~ Signed [facility]09-21-2025 Progress note Author Rey Curtis [facility] Note Date/Time May 28, 2025 9:07am [facility] Medical Records Department [address] [place] [address] Progress Note - Cardiology 05/28/25 0822 MR#: [id number] Acct: [id number] Name: MARCIA MASCORRO Rep #:[id number] : 1955 69 From: Rey Curtis MD PCP: Dr. Gabriel Galvan MD Status:AD M IN Location: [place] [address] Subjective Subjective Patient seen and evaluated. Objective Data Vital Signs: Vital Signs Temp Pulse Resp BP Pulse Ox O2 Del Method O2 Flow Rate 98.7 F 77 20 H 130/80 H 93 Nasal Cannula 3 05/28/25 03:10 05/28/25 07:25 05/28/25 07:25 05/28/25 03:10 05/28/25 07:25 05/28/25 07:25 05/28/25 07:25 Oxygen Flow Rate (L/min) 3 Oxygen Delivery Method Nasal Cannula Weight: 168 lb 10.458 oz Body Mass Index (BMI) 28.0 Intake & Output: Intake and Output for Last 24 Hours 05/26/25 05/27/25 05/28/25 23:59 23:59 23:59 Intake Total 316.62 / 716.62 2018.39 / 2258.39 298.92 / 298.92 Output Total 2350 / 2750 800 / 800 Balance 316.62 / -383.38 -331.61 / -491.61 -501.08 / -501.08 Lab / Micro Data 05/27/25 03:51 05/27/25 03:51 Labs: Laboratory Results - last 24 hr 05/27/25 11:40: APTT 52.0 H 05/27/25 18:29: APTT 52.2 H 05/28/25 00:34: APTT 50.0 H 05/28/25 07:28: APTT 108.1 H* Micro: Microbiology 05/27/25 20:50 Urine, Clean Catch Streptococcus pneumoniae Antigen (M - Final Cardiology Labs/Tests 05/27/25 11:40: APTT 52.0 H 05/27/25 18:29: APTT 52.2 H 05/28/25 00:34: APTT 50.0 H 05/28/25 07:28: APTT 108.1 H* Rhythm: EKG: ECHO: Stress Test: Cardiac Cath: PCI: CT Surgery: Holter monitor: EPS: PPM: CXR: Chest CT Scan: Physical Exam Const alert, oriented x3 and no apparent distress General Appearance: cooperative HEENT hearing grossly normal bilaterally Head and Scalp: atraumatic Eyes EOMs intact bilaterally Neck General: normal visual inspection Chest inspection of chest normal and palpation of chest normal Resp normal respiratory effort Auscultation: clear to auscultation bilaterally Cardio regular rate, regular rhythm, S1 normal heart sound and S2 normal heart sound Jugular Venous Distention: JVD GI normal to inspection, nondistended, normoactive bowel sounds Extremity normal capillary refill and no pedal edema Peripheral Pulses: Yes pulses 2+ throughout and femoral pulses present Skin no rashes or lesions noted Neuro oriented x3 and CN's II-XII intact bilaterally Psych Appearance: grossly normal and appropriate Assessment & Plan Assessment/Plan (1) NSTEMI, initial episode of care: PLAN: Patient presents with atypical chest discomfort which has been chronic butat this time. My recommendation is for us to continue to follow her and likely undergo a repeat cardiac catheterization on Thursday and depending on the findingsfurther recommendations will be made. (2) LV (left ventricular) mural thrombus: PLAN: She does have a previous history of a left ventricular mural thrombus. After the cardiac catheterization I will recommend that we place her on anticoagulation likely with DOAC and see how she does. (3) Ischemic cardiomyopathy: PLAN: She does have a history of ischemic cardiomyopathy and will institute guideline directed medical therapy with carvedilol, an ARB or ARNI, and an [id number]. (4) Essential hypertension: PLAN: Her blood pressure appears to be under fair control the plan to be to continue this without making any major changes. (5) Hyperlipidemia: QUALIFIERS: Hyperlipidemia type: unspecified Qualified Code(s): E78.5 - Hyperlipidemia, unspecified PLAN: She does have a history of hyperlipidemia and will continue with high intensity statin. 05/28/25906 <Electronically signed by Rey Curtis MD> Cosigner Signature (if applicable): CC: ~ Signed [facility] Work Phone: 1(854) 881-559009-21-2025 Progress note [facility] Medical Records Department [address] [place] [address] Progress Note - Cardiology 05/28/25 0822 MR#: [id number] Acct: [id number] Name: MARCIA MASCORRO Rep #:[id number] : 1955 69 From: Rey Curtis MD PCP: Dr. Gabriel Galvan MD Status:AD M IN Location: [place] [address] Subjective Subjective Patient seen and evaluated. Objective Data Vital Signs: Vital Signs Temp Pulse Resp BP Pulse Ox O2 Del Method O2 Flow Rate 98.7 F 77 20 H 130/80 H 93 Nasal Cannula 3 05/28/25 03:10 05/28/25 07:25 05/28/25 07:25 05/28/25 03:10 05/28/25 07:25 05/28/25 07:25 05/28/25 07:25 Oxygen Flow Rate (L/min) 3 Oxygen Delivery Method Nasal Cannula Weight: 168 lb 10.458 oz Body Mass Index (BMI) 28.0 Intake & Output: Intake and Output for Last 24 Hours 05/26/25 05/27/25 05/28/25 23:59 23:59 23:59 Intake Total 316.62 / 716.62 2018.39 / 2258.39 298.92 / 298.92 Output Total 2350 / 2750 800 / 800 Balance 316.62 / -383.38 -331.61 / -491.61 -501.08 / -501.08 Lab / Micro Data 05/27/25 03:51 05/27/25 03:51 Labs: Laboratory Results - last 24 hr 05/27/25 11:40: APTT 52.0 H 05/27/25 18:29: APTT 52.2 H 05/28/25 00:34: APTT 50.0 H 05/28/25 07:28: APTT 108.1 H* Micro: Microbiology 05/27/25 20:50 Urine, Clean Catch Streptococcus pneumoniae Antigen (M - Final Cardiology Labs/Tests 05/27/25 11:40: APTT 52.0 H 05/27/25 18:29: APTT 52.2 H 05/28/25 00:34: APTT 50.0 H 05/28/25 07:28: APTT 108.1 H* Rhythm: EKG: ECHO: Stress Test: Cardiac Cath: PCI: CT Surgery: Holter monitor: EPS: PPM: CXR: Chest CT Scan: Physical Exam Const alert, oriented x3 and no apparent distress General Appearance: cooperative HEENT hearing grossly normal bilaterally Head and Scalp: atraumatic Eyes EOMs intact bilaterally Neck General: normal visual inspection Chest inspection of chest normal and palpation of chest normal Resp normal respiratory effort Auscultation: clear to auscultation bilaterally Cardio regular rate, regular rhythm, S1 normal heart sound and S2 normal heart sound Jugular Venous Distention: JVD GI normal to inspection, nondistended, normoactive bowel sounds Extremity normal capillary refill and no pedal edema Peripheral Pulses: Yes pulses 2+ throughout and femoral pulses present Skin no rashes or lesions noted Neuro oriented x3 and CN's II-XII intact bilaterally Psych Appearance: grossly normal and appropriate Assessment & Plan Assessment/Plan (1) NSTEMI, initial episode of care: PLAN: Patient presents with atypical chest discomfort which has been chronic butat this time. My recommendation is for us to continue to follow her and likely undergo a repeat cardiac catheterizationon Thursday and depending on the findingsfurther recommendations will be made. (2) LV (left ventricular) mural thrombus: PLAN: She does have a previous history of a left ventricular mural thrombus. After the cardiac catheterization I will recommend that we place her on anticoagulation likely with DOAC and see how she does. (3) Ischemic cardiomyopathy: PLAN: She does have a history of ischemic cardiomyopathy and will institute guideline directed medical therapy with carvedilol, an ARB or ARNI, and an [id number]. (4) Essential hypertension: PLAN: Her blood pressure appears to be under fair control the plan to be to continue this without making any major changes. (5) Hyperlipidemia: QUALIFIERS: Hyperlipidemia type: unspecified Qualified Code(s): E78.5 - Hyperlipidemia, unspecified PLAN: She does have a history of hyperlipidemia and will continue with high intensity statin. 05/28/25 0907 Cosigner Signature (if applicable): CC: ~ Signed [facility]09-20-2025 Progress note Author Regan Russo [facility] Note Date/Time May 27, 2025 1:31pm [facility] Medical Records Department [address] [place] [address] Progress Note - Hospitalist 05/27/25 1325 MR#: [id number] Acct: [id number] Name: MARCIA MASCORRO Rep #:[id number] : 1955 69 From: Regan Quiñones PCP: Dr. Gabriel Galvan MD Status:AD M IN Location: [place] [address] Reason for Visit Chief Complaint: Left-sided chest pain, shoulder pain and shortness of breath since yesterday morning. Objective Data Objective Data Vital Signs: Vital Signs Temp Pulse Resp BP Pulse Ox O2 Del Method O2 Flow Rate 98.1 F 87 19 H 118/76 94 Nasal Cannula 3 05/27/25 09:39 05/27/25 11:22 05/27/25 11:22 05/27/25 09:39 05/27/25 09:39 05/27/25 09:39 05/27/25 09:39 Oxygen Flow Rate (L/min) 3 Oxygen Delivery Method Nasal Cannula Weight: 172 lb 6.424 oz Body Mass Index (BMI) 28.7 Intake & Output: Intake and Output for Last 24 Hours 05/25/25 05/26/25 05/27/25 23:59 23:59 23:59 Intake Total 316.62 / 716.62 1076.49 / 1076.49 Output Total 1900 / 1900 Balance 316.62 / -383.38 -823.51 / -823.51 Lab / Micro Data 05/27/25 03:51 05/27/25 03:51 Labs: Laboratory Results - last 24 hr 05/26/25 20:23: APTT 39.0 H 05/27/25 03:51: WBC 7.5, RBC 3.93 L, Hgb 12.5, Hct 38.0, MCV 96.7, MCH 31.8, MCHC 32.9, RDW Std Deviation 48.8 H, RDW Coeff of Sariah 13.8, Plt Count 174, MPV 9.5, Immature Gran % (Auto) 0.400, Neut % (Auto) 81.6 H, Lymph % (Auto) 15.8 L, Rogers % (Auto) 1.9, Eos % (Auto) 0.0, Baso % (Auto) 0.3, Absolute Neuts (auto) 6.1, Absolute Lymphs (auto) 1.18, Nucleated RBC % 0, APTT 68.6 H, Sodium 140, Potassium 4.3, Chloride 103, Carbon Dioxide 28.8, Anion Gap 8, BUN 17, Creatinine 0.65 L, Estim Creat Clear Calc 69.57, Est GFR (MDRD) Non-Af 96, BUN/Creatinine Ratio 26.6 H, Glucose 146 H, Calcium 9.5, Triglycerides 68, Cholesterol 188, LDL Cholesterol, Calc 123, VLDL Cholesterol 14, HDL [id number], Cholesterol/HDL Ratio 3.66, TSH 0.505 05/27/25 11:40: APTT 52.0 H Micro: Microbiology 05/26/25 14:14 Mucosa - Nasopharyngeal Respiratory Panel (PCR) - Final 05/26/25 13:12 Nasal Secretion MRSA (PCR) - Final 05/26/25 13:12 Mucosa - Nose Coronavirus COVID-19 PCR - Final Radiography Diagnostic Testing: Radiology Impression Echocardiogram 05/26/25 12:06 Interpretation Summary Normal LV size. The left ventricular ejection fraction is 25 %. Thrombus adherent to the anterior apical wall. Severe segmental systolic dysfunction (see wall motion). Ordering Physician: Regan Russo Referring Physician: Gabriel Galvan M.D. Performed By: Rehana Gomes RCS Physical Exam Narrative Seen and examined. Shortness of breath and chest pain is better. Patient is found to have LV muralthrombus. Currently on IV heparin drip. EF 25%. Physical exam General: Alert, Oriented x3, Cooperative HEENT: Atraumatic, PERRLA, EOMI, Normocephalic. Oral: No Gingival or Mucosal Lesions/ Ulcerations Neck: Supple, No JVD, Negative Carotid Bruits Chest wall/Lungs: Air entry severely diminished in both lungs. Dyspnea at restimproved. Wheezing improved Cardiovascular: Sinus rhythm. S1-S2 regular, soft systolic murmur Abdomen: Bowel Sounds Present, Soft, Non Tender, Non-Distended : No dysuria. No renal angle tenderness. No suprapubic tenderness. Extremities: No edema, Capillary Refill Less than 3 Seconds Skin: No rashes, No breakdown Musculoskeletal: ROM limited over left shoulder and upper extremity. No acute tenderness palpation of joints of extremities Neurological: Cranial nerves II-XII grossly intact, DTR 2+/4. No acute focal neurological deficit. Psych/Mental Status: Anxious, flat affect Assessment & Plan Assessment/Plan (1) NSTEMI, initial episode of care: PLAN: Plan Patient is a 68-year-old lady who presented with shortness of breath diagnosed with COPD with acute exacerbation admitted to regular nursing floor for further management 1. Atypical chest pain possible non-STEMI with contribution from panic/anxiety and COPD exacerbation: Patient is being admitted to PCU on telemetry. Started on baby aspirin, IV morphine and IV heparin drip. Home medication carvedilol, Plavix and atorvastatin regimen. Nitroglycerin ointment ordered. Twelve-lead EKG shows NSR 72 bpm, QTc 424 ms. QRS 128 ms. Troponins are 18, 102 and 598. proBNP about 3000. CELESTE risk score 5/7 with 26.6% risk of mortality from UT/recurrent ischemia event in next 2 weeks. Triple Valve Tester consulted. Patient has significant contusion for anxiety and panic therefore IV Ativan 1 dose 0.5 mg ordered. Patient on Ativan 1 mg 3 times daily at home. 05/27: Seen by manager plan. Atypical chest discomfort which may be chronic. Triple Valve Tester recommended cardiac cath on Thursday. Patient has previous history of LV mural thrombus and echo corroborates that. On IV heparin drip and recommended DOAC after cardiac cath 2. COPD exacerbation: Patient is on send she is on antibiotic but is not seen on patient's home medication. Chest x-ray initially reviewed and shows perihilar congestion/venous congestion consistent with CHF exacerbation. No specific consolidation seen. Patient is being managed on scheduled bronchodilator, IV Solu-Medrol, Mucinex, incentive spirometry and Pep. 05/27: Respiratory panel MRSA nasal screen and COVID tests are negative. Continue bronchodilator and steroid. Encouraged incentive spirometry. 3. CHF exacerbation: Started on IV Lasix. Heart failure core measures including intake and output, fluid restriction less than 1500 mL, daily weight monitoring, kidney and electrolytes monitoring. Last echo in July 2022 shows EF 30% moderately dilated LV, 1+ MR. 05/27: Lipid profile shows LDL 123. HDL normal. TSH normal. Echo shows EF 25%. Continue guideline directed medical therapy with carvedilol, ARNI and SGLT inhibitor. Lisinopril discontinued 4. Peripheral arterial disease ? Patient is on antiplatelet therapy as well as statin therapy, atorvastatin continued 5. Dyslipidemia ?Patient is on statin therapy, continued at home dose 7. Hypertension ? Blood pressure elevated, home medications continued with dose adjustment as needed 8. Depression with anxiety - Patient on sertraline and lorazepam 1 mg p.o. 3 times daily as needed. Continued 9. Chronic pain syndrome ? Patient follows Dr. Forrest. On [place] at home. Patient's son stated that she is on sustained-release oxycodone or morphine but not found on the patient's home med list. 10. Hyperglycemia Glucose elevated 122. Probably due to recurrent Solu-Medrol/steroid 11. DVT prophylaxis ? On IV heparin drip Living will/advanced directive/end of life care: Patient does not have living will or advanced directive. His son present in the room is next to kin/power ofattorney for [facility]. After discussion of benefits/risks procedures involved with full code, DNR CC arrest and DNR CC, the patient opted for full code. Patient does want artificial life support including intubation, tube feed, ventilator and/chest compression, central venous catheter, vasopressor and DC shock if needed Microbiology Past 72 Hours 05/26/25 14:14 Mucosa - Nasopharyngeal Respiratory Panel (PCR) - Final 05/26/25 13:12 Nasal Secretion MRSA (PCR) - Final 05/26/25 13:12 Mucosa - Nose Coronavirus COVID-19 PCR - Final Laboratory Results 05/26/25 20:23: APTT 39.0 H 05/27/25 03:51: WBC 7.5, RBC 3.93 L, Hgb 12.5, Hct 38.0, MCV 96.7, MCH 31.8, MCHC 32.9, RDW Std Deviation 48.8 H, RDW Coeff of Sariah 13.8, Plt Count 174, MPV 9.5, Immature Gran % (Auto) 0.400, Neut % (Auto) 81.6 H, Lymph % (Auto) 15.8 L, Rogers % (Auto) 1.9, Eos % (Auto) 0.0, Baso % (Auto) 0.3, Absolute Neuts (auto) 6.1, Absolute Lymphs (auto) 1.18, Nucleated RBC % 0, APTT 68.6 H, Sodium 140, Potassium 4.3, Chloride 103, Carbon Dioxide 28.8, Anion Gap 8, BUN 17, Creatinine 0.65 L, Estim Creat Clear Calc 69.57, Est GFR (MDRD) Non-Af 96, BUN/Creatinine Ratio 26.6 H, Glucose 146 H, Calcium 9.5, Triglycerides 68, Cholesterol 188, LDL Cholesterol, Calc 123, VLDL Cholesterol 14, HDL [id number], Cholesterol/HDL Ratio 3.66, TSH 0.505 05/27/25 11:40: APTT 52.0 H Clinical Impression(s) from Imaging Studies Chest X-Ray 05/26/25 06:48 IMPRESSION: Perihilar airspace opacities may represent CHF, pulmonary edema or pneumonia. Small pleural effusion. Charges/Coding Visit Charges Inpatient E&M: 68870 Subs Hosp L2 05/27/25 1331 <Electronically signed by Regan Russo MD> Cosigner Signature (if applicable): CC: ~ Signed [facility] Work Phone: 1(996) 500-274909-20-2025 Progress note [facility] Medical Records Department [address] [place] [address] Progress Note - Hospitalist 05/27/25 1325 MR#: [id number] Acct: [id number] Name: MARCIA MASCORRO Rep #:[id number] : 1955 69 From: Regan Quiñones PCP: Dr. Gabriel Galvan MD Status:AD M IN Location: [place] [address] Reason for Visit Chief Complaint: Left-sided chest pain, shoulder pain and shortness of breath since yesterday morning. Objective Data Objective Data Vital Signs: Vital Signs Temp Pulse Resp BP Pulse Ox O2 Del Method O2 Flow Rate 98.1 F 87 19 H 118/76 94 Nasal Cannula 3 05/27/25 09:39 05/27/25 11:22 05/27/25 11:22 05/27/25 09:39 05/27/25 09:39 05/27/25 09:39 05/27/25 09:39 Oxygen Flow Rate (L/min) 3 Oxygen Delivery Method Nasal Cannula Weight: 172 lb 6.424 oz Body Mass Index (BMI) 28.7 Intake & Output: Intake and Output for Last 24 Hours 05/25/25 05/26/25 05/27/25 23:59 23:59 23:59 Intake Total 316.62 / 716.62 1076.49 / 1076.49 Output Total 1900 / 1900 Balance 316.62 / -383.38 -823.51 / -823.51 Lab / Micro Data 05/27/25 03:51 05/27/25 03:51 Labs: Laboratory Results - last 24 hr 05/26/25 20:23: APTT 39.0 H 05/27/25 03:51: WBC 7.5, RBC 3.93 L, Hgb 12.5, Hct 38.0, MCV 96.7, MCH 31.8, MCHC 32.9, RDW Std Deviation 48.8 H, RDW Coeff of Sariah 13.8, Plt Count 174, MPV 9.5, Immature Gran % (Auto) 0.400, Neut % (Auto) 81.6 H, Lymph % (Auto) 15.8 L, Rogers % (Auto) 1.9, Eos % (Auto) 0.0, Baso % (Auto) 0.3, Absolute Neuts (auto) 6.1, Absolute Lymphs (auto) 1.18, Nucleated RBC % 0, APTT 68.6 H, Sodium 140, Potassium 4.3, Chloride 103, Carbon Dioxide 28.8, Anion Gap 8, BUN 17, Creatinine 0.65 L, Estim Creat ClearCalc 69.57, Est GFR (MDRD) Non-Af 96, BUN/Creatinine Ratio 26.6 H, Glucose 146 H, Calcium 9.5, Triglycerides 68, Cholesterol 188, LDL Cholesterol, Calc 123, VLDL Cholesterol 14, HDL [id number], Cholesterol/HDL Ratio 3.66, TSH 0.505 05/27/25 11:40: APTT 52.0 H Micro: Microbiology 05/26/25 14:14 Mucosa - Nasopharyngeal Respiratory Panel (PCR) - Final 05/26/25 13:12 Nasal Secretion MRSA (PCR) - Final 05/26/25 13:12 Mucosa - Nose Coronavirus COVID-19 PCR - Final Radiography Diagnostic Testing: Radiology Impression Echocardiogram 05/26/25 12:06 Interpretation Summary Normal LV size. The left ventricular ejection fraction is 25 %. Thrombus adherent to the anterior apical wall. Severe segmental systolic dysfunction (see wall motion). Ordering Physician: Regan Russo Referring Physician: Gabriel Galvan M.D. Performed By: Rehana Gomes RCS Physical Exam Narrative Seen and examined. Shortness of breath and chest pain is better. Patient is found to have LV muralthrombus. Currently on IV heparin drip. EF 25%. Physical exam General: Alert, Oriented x3, Cooperative HEENT: Atraumatic, PERRLA, EOMI, Normocephalic. Oral: No Gingival or Mucosal Lesions/ Ulcerations Neck: Supple, No JVD, Negative Carotid Bruits Chest wall/Lungs: Air entry severely diminished in both lungs. Dyspnea at restimproved. Wheezing improved Cardiovascular: Sinus rhythm. S1-S2 regular, soft systolic murmur Abdomen: Bowel Sounds Present, Soft, Non Tender, Non-Distended : No dysuria. No renal angle tenderness. No suprapubic tenderness. Extremities: No edema, Capillary Refill Less than 3 Seconds Skin: No rashes, No breakdown Musculoskeletal: ROM limited over left shoulder and upper extremity. No acute tenderness palpation of joints of extremities Neurological: Cranial nerves II-XII grossly intact, DTR 2+/4. No acute focal neurological deficit. Psych/Mental Status: Anxious, flat affect Assessment & Plan Assessment/Plan (1) NSTEMI, initial episode of care: PLAN: Plan Patient is a 68-year-old lady who presented with shortness of breath diagnosed with COPD with acuteexacerbation admitted to regular nursing floor for further management 1. Atypical chest pain possible non-STEMI with contribution from panic/anxiety and COPD exacerbation: Patient is being admitted to PCU on telemetry. Started on baby aspirin, IV morphine and IV heparin drip. Home medication carvedilol, Plavix and atorvastatin regimen. Nitroglycerin ointment ordered.Twelve-lead EKG shows NSR 72 bpm, QTc 424 ms. QRS 128 ms. Troponins are 18, 102 and 598. proBNP about 3000. CELESTE risk score 5/7 with 26.6% risk of mortality from UT/recurrent ischemia event in next 2weeks. Triple Valve Tester consulted. Patient has significant contusion for anxiety and panic therefore IVAtivan 1 dose 0.5 mg ordered. Patient on Ativan 1 mg 3 times daily at home. 05/27: Seen by manager plan. Atypical chest discomfort which may be chronic. Triple Valve Tester recommended cardiac cath on Thursday. Patient has previous history of LV mural thrombus and echo corroborates that. On IV heparin drip and recommended DOAC after cardiac cath 2. COPD exacerbation: Patient is on send she is on antibiotic but is not seen on patient's home medication. Chest x-ray initially reviewed and shows perihilar congestion/venous congestion consistent with CHF exacerbation. No specific consolidation seen. Patient is being managed on scheduled bronchodilator, IV Solu-Medrol, Mucinex, incentive spirometry and Pep. 05/27: Respiratory panel MRSA nasal screen and COVID tests are negative. Continue bronchodilator andsteroid. Encouraged incentive spirometry. 3. CHF exacerbation: Started on IV Lasix. Heart failure core measures including intake and output, fluid restriction less than 1500 mL, daily weight monitoring, kidney and electrolytes monitoring. Last echo in July 2022 shows EF 30% moderately dilated LV, 1+ MR. 05/27: Lipid profile shows LDL 123. HDL normal. TSH normal. Echo shows EF 25%. Continue guideline directed medical therapy with carvedilol, ARNI and SGLT inhibitor. Lisinopril discontinued 4. Peripheral arterial disease ? Patient is on antiplatelet therapy as well as statin therapy, atorvastatin continued 5. Dyslipidemia ?Patient is on statin therapy, continued at home dose 7. Hypertension ? Blood pressure elevated, home medications continued with dose adjustment as needed 8. Depression with anxiety - Patient on sertraline and lorazepam 1 mg p.o. 3 times daily as needed. Continued 9. Chronic pain syndrome ? Patient follows Dr. Forrest. On [place] at home. Patient's son stated that she is on sustained-release oxycodone or morphine but not found on the patient's home med list. 10. Hyperglycemia Glucose elevated 122. Probably due to recurrent Solu-Medrol/steroid 11. DVT prophylaxis ? On IV heparin drip Living will/advanced directive/end of life care: Patient does not have living will or advanced directive. His son present in the room is next to kin/power ofattorney for health. After discussion of benefits/risks procedures involved with full code, DNR CC arrest and DNR CC, the patient opted for full code. Patient does want artificial life support including intubation, tube feed, ventilator and/chest compression, central venous catheter, vasopressor and DC shock if needed Microbiology Past 72 Hours 05/26/25 14:14 Mucosa - Nasopharyngeal Respiratory Panel (PCR) - Final 05/26/25 13:12 Nasal Secretion MRSA (PCR) - Final 05/26/25 13:12 Mucosa - Nose Coronavirus COVID-19 PCR - Final Laboratory Results 05/26/25 20:23: APTT 39.0 H 05/27/25 03:51: WBC 7.5, RBC 3.93 L, Hgb 12.5, Hct 38.0, MCV 96.7, MCH 31.8, MCHC 32.9, RDW Std Deviation 48.8 H, RDW Coeff of Sariah 13.8, Plt Count 174, MPV 9.5, Immature Gran % (Auto) 0.400, Neut % (Auto) 81.6 H, Lymph % (Auto) 15.8 L, Rogers % (Auto) 1.9, Eos % (Auto) 0.0, Baso % (Auto) 0.3, Absolute Neuts (auto) 6.1, Absolute Lymphs (auto) 1.18, Nucleated RBC % 0, APTT 68.6 H, Sodium 140, Potassium 4.3, Chloride 103, Carbon Dioxide 28.8, Anion Gap 8, BUN 17, Creatinine 0.65 L, Estim Creat ClearCalc 69.57, Est GFR (MDRD) Non-Af 96, BUN/Creatinine Ratio 26.6 H, Glucose 146 H, Calcium 9.5, Triglycerides 68, Cholesterol 188, LDL Cholesterol, Calc 123, VLDL Cholesterol 14, HDL [id number], Cholesterol/HDL Ratio 3.66, TSH 0.505 05/27/25 11:40: APTT 52.0 H Clinical Impression(s) from Imaging Studies Chest X-Ray 05/26/25 06:48 IMPRESSION: Perihilar airspace opacities may represent CHF, pulmonary edema or pneumonia. Small pleural effusion. Charges/Coding Visit Charges Inpatient E&M: 39488 Subs Hosp L2 05/27/25 1331 Cosigner Signature (if applicable): CC: ~ Signed [facility]09-20-2025 Consult note Author Rey Curtis [facility] Note Date/Time May 27, 2025 10:18am [facility] Medical Records Department [address] [place] [address] Consultation - Cardiology 05/27/25 1003 MR#: [id number] Acct: [id number] Name: MARCIA MASCORRO Rep #:[id number] : 1955 69 From: Rey Curtis MD PCP: Dr. Gabriel Galvan MD Status:AD M IN Location: [address] 1 Assessment & Plan Assessment/Plan (1) NSTEMI, initial episode of care: PLAN: Patient presents with atypical chest discomfort which has been chronic butat this time. My recommendation is for us to continue to follow her and likely undergo a repeat cardiac catheterization on Thursday and depending on the findingsfurther recommendations will be made. (2) LV (left ventricular) mural thrombus: PLAN: She does have a previous history of a left ventricular mural thrombus. After the cardiac catheterization I will recommend that we place her on anticoagulation likely with DOAC and see how she does. (3) Ischemic cardiomyopathy: PLAN: She does have a history of ischemic cardiomyopathy and will institute guideline directed medical therapy with carvedilol, an ARB or ARNI, and an [id number]. (4) Essential hypertension: PLAN: Her blood pressure appears to be under fair control the plan to be to continue this without making any major changes. (5) Hyperlipidemia: QUALIFIERS: Hyperlipidemia type: unspecified Qualified Code(s): E78.5 - Hyperlipidemia, unspecified PLAN: She does have a history of hyperlipidemia and will continue with high intensity statin. HPI Consult Data Date of Consult: 05/27/25 HPI Narrative HPI Narrative: MARCIA MASCORRO, is a 69 F who presents to the emergency room with left-sided chest discomfort as well as left shoulder discomfort. She has a history of chronic arthritis and anxiety and is being followed up by the pain management physicians. Patient has history of nonischemic cardiomyopathy with [...] with LV apical thrombus. From a cardiac standpoint,the patient had been doing well. She does acknowledge chest pain-midsternal this does [...] that she does have lightheadedness when walking. During this visit her EKG did not demonstrate anysignificant changes but her cardiac enzymes were abnormal and she also had an echocardiogram which demonstrated reduced ejection fraction of 20% with a probable apical thrombus. [facility] Medical History Chronic pain Kidney disease [...] reflux disease) Hyperlipidemia 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 Tobacco abuse [...] tablet 5 mg PO DAILY 09/28/2409/27 History polyethylene glycol 3350 17 17 g PO [...] PO QDAY #90 tabs 10/04 Unknown Rx clopidogrel 75 mg tablet 75 mg PO QDAY 01/13/25 Unkno wn History omeprazole 40 mg capsule,delayed 40 mg PO QDAY 5 Unknown History release potassium chloride 20 mEq 20 meq PO QDAY 01/13/25 Unkn own History tablet,extended release sertraline 50 mg tablet 50 mg PO QDAY 01/13/25 Unkno wn History spironolactone 25 mg tablet 25 mg PO QDAY 01/13/25 Unk nown History Allergy/AdvReac Type Severity Reaction Status Date / Time Iodinated Contrast Media Allergy SOB Verified 05/26/25 06:10 (iodine contrast) Family History Mother Hypertension CAD [...] substance use type: does not use ROS Constitutional Constitutional: Denies fever(s) or weight loss Eyes Eyes: Reports systems reviewed and no addt'l complaints, except as documented ENT HEENT: Reports systems reviewed and no addt'l complaints, except as documented Cardiovascular Cardiovascular: Reports chest pain at rest and chest pain with activity; Denies dyspnea at rest, dyspnea on exertion, edema, palpitations or paroxysmal nocturnal dyspnea Respiratory/Chest Respiratory/Chest: Reports shortness of breath at rest; Denies dyspnea on exertion, productive cough or shortness of breath with exertion Gastrointestinal Gastrointestinal: Denies change in bowel habits, nausea, vomiting or weight changes Genitourinary Genitourinary: Denies difficulty urinating Musculoskeletal Musculoskeletal: Denies joint stiffness or muscle weakness Integumentary Integumentary: Denies lesions Neurologic Neurologic: Denies dizziness or syncope Psychiatric Psychiatric: Denies anxiety Endocrine Endocrinology: Denies excessive sweating or fatigue Hematologic/Lymphatic Hematologic/Lymphatic: Denies anemia Allergic/Immunologic Allergic/Immunologic: Denies seasonal rhinorrhea Physical Exam Const alert, oriented x3 and no apparent distress General Appearance: cooperative HEENT hearing grossly normal bilaterally Head and Scalp: atraumatic Eyes EOMs intact bilaterally Neck General: normal visual inspection Chest inspection of chest normal and palpation of chest normal Resp normal respiratory effort Auscultation: clear to auscultation bilaterally Cardio regular rate, regular rhythm, S1 normal heart sound and S2 normal heart sound Jugular Venous Distention: JVD GI normal to inspection, nondistended, normoactive bowel sounds Extremity normal capillary refill and no pedal edema Peripheral Pulses: Yes pulses 2+ throughout and femoral pulses present Skin no rashes or lesions noted Neuro oriented x3 and CN's II-XII intact bilaterally Psych Appearance: grossly normal and appropriate Objective Data Vital Signs: Vital Signs Temp Pulse Resp BP Pulse Ox O2 Del Method O2 Flow Rate 98.1 F 79 18 118/76 94 Nasal Cannula 3 05/27/25 09:39 05/27/25 09:39 05/27/25 09:39 05/27/25 09:39 05/27/25 09:39 05/27/25 09:39 05/27/25 09:39 Oxygen Flow Rate (L/min) 3 Oxygen Delivery Method Nasal Cannula Weight: 172 lb 6.424 oz Body Mass Index (BMI) 28.7 Intake & Output: Intake and Output for Last 24 Hours 05/25/25 05/26/25 05/27/25 23:59 23:59 23:59 Intake Total 316.62 / 716.62 765.86 / 765.86 Output Total 1900 / 1900 Balance 316.62 / -383.38 -1134.14 / -1134.14 Lab / Micro Data 05/27/25 03:51 05/27/25 03:51 Labs: Laboratory Results - last 24 hr 05/26/25 06:00: PT 12.8, INR 0.9 05/26/25 08:15: Phosphorus 4.5, Magnesium Cancelled, Total Bilirubin < 0.15, Direct Bilirubin < 0.08, AST 35 H, ALT 20, Alkaline Phosphatase 153 H, Total Protein 6.0, Albumin 3.4, Globulin 2.6 05/26/25 11:00: APTT > 200.0 H*, Troponin T Hi Sens 4Hr 598 H* 05/26/25 20:23: APTT 39.0 H 05/27/25 03:51: WBC 7.5, RBC 3.93 L, Hgb 12.5, Hct 38.0, MCV 96.7, MCH 31.8, MCHC 32.9, RDW Std Deviation 48.8 H, RDW Coeff of Sariah 13.8, Plt Count 174, MPV 9.5, Immature Gran % (Auto) 0.400, Neut % (Auto) 81.6 H, Lymph % (Auto) 15.8 L, Rogers % (Auto) 1.9, Eos % (Auto) 0.0, Baso % (Auto) 0.3, Absolute Neuts (auto) 6.1, Absolute Lymphs (auto) 1.18, Nucleated RBC % 0, APTT 68.6 H, Sodium 140, Potassium 4.3, Chloride 103, Carbon Dioxide 28.8, Anion Gap 8, BUN 17, Creatinine 0.65 L, Estim Creat Clear Calc 69.57, Est GFR (MDRD) Non-Af 96, BUN/Creatinine Ratio 26.6 H, Glucose 146 H, Calcium 9.5, Triglycerides 68, Cholesterol 188, LDL Cholesterol, Calc 123, VLDL Cholesterol 14, HDL [id number], Cholesterol/HDL Ratio 3.66, TSH 0.505 Micro: Microbiology 05/26/25 14:14 Mucosa - Nasopharyngeal Respiratory Panel (PCR) - Final 05/26/25 13:12 Nasal Secretion MRSA (PCR) - Final 05/26/25 13:12 Mucosa - Nose Coronavirus COVID-19 PCR - Final Cardiology Labs/Tests 05/26/25 06:00: PT 12.8, INR 0.9 05/26/25 08:15: Phosphorus 4.5, Magnesium Cancelled, Total Bilirubin < 0.15, Direct Bilirubin < 0.08 05/26/25 11:00: APTT > 200.0 H* 05/26/25 20:23: APTT 39.0 H 05/27/25 03:51: WBC 7.5, RBC 3.93 L, Hgb 12.5, Hct 38.0, MCV 96.7, MCH 31.8, MCHC 32.9, Plt Count 174, MPV 9.5, Immature Gran % (Auto) 0.400, Neut % (Auto) 81.6 H, Lymph % (Auto) 15.8 L, Rogers % (Auto) 1.9, Eos % (Auto) 0.0, Baso % (Auto) 0.3, Absolute Neuts (auto) 6.1, Nucleated RBC % 0, APTT 68.6 H, Sodium 140, Potassium 4.3, Chloride 103, Carbon Dioxide 28.8, Anion Gap 8, BUN 17, Creatinine 0.65 L, Est GFR (MDRD) Non-Af 96, BUN/Creatinine Ratio 26.6 H, [id number] H, Calcium 9.5, Triglycerides 68, Cholesterol 188, VLDL Cholesterol 14, HDL Cholesterol 51, Cholesterol/HDL Ratio 3.66 Rhythm: EKG: ECHO: Stress Test: Cardiac Cath: PCI: CT Surgery: Holter monitor: EPS: PPM: CXR: Chest CT Scan: Radiography Diagnostic Testing: Radiology Impression Echocardiogram 05/26/25 12:06 Interpretation Summary Normal LV size. The left ventricular ejection fraction is 25 %. Thrombus adherent to the anterior apical wall. Severe segmental systolic dysfunction (see wall motion). Ordering Physician: Regan Russo Referring Physician: Gabriel Galvan M.D. Performed By: Rehana Gomes RCS STE Risk Score for UA/STEMI Assesmment (YES = 1) Risk Stratification Applicable: Yes Age > or = 65: Yes > or = 3 CAD risk factors (HTN, Hypercholesterolemia, Diabetes, family hx, current smoker): Yes Known CAD (Stenosis > or = 50%): No ASA used in past 7 days: Yes Severe angina (> or = 2 episodes in 24 hrs): No EKG ST change > or = 0.5mm: No Positive cardiac markers: Yes Score CELESTE Risk Score of mortality/ recurrent ischemic event over the next 14 days: 4 = 19.9% - Intermediate 05/27/25 1018 <Electronically signed by Rey Curtis MD> Cosigner Signature (if applicable): CC: Dr. Gabriel Galvan MD~ Signed [facility] Work Phone: 1(228) 685-197409-20-2025 Consult note [facility] Medical Records Department [address] [place] [address] Consultation - Cardiology 05/27/25 1003 MR#: [id number] Acct: [id number] Name: MARCIA MASCORRO Rep #:[id number] : 1955 69 From: Rey Curtis MD PCP: Dr. Gabriel Galvan MD Status:AD M IN Location: [place] [address] Assessment & Plan Assessment/Plan (1) NSTEMI, initial episode of care: PLAN: Patient presents with atypical chest discomfort which has been chronic butat this time. My recommendation is for us to continue to follow her and likely undergo a repeat cardiac catheterizationon Thursday and depending on the findingsfurther recommendations will be made. (2) LV (left ventricular) mural thrombus: PLAN: She does have a previous history of a left ventricular mural thrombus. After the cardiac catheterization I will recommend that we place her on anticoagulation likely with DOAC and see how she does. (3) Ischemic cardiomyopathy: PLAN: She does have a history of ischemic cardiomyopathy and will institute guideline directed medical therapy with carvedilol, an ARB or ARNI, and an [id number]. (4) Essential hypertension: PLAN: Her blood pressure appears to be under fair control the plan to be to continue this without making any major changes. (5) Hyperlipidemia: QUALIFIERS: Hyperlipidemia type: unspecified Qualified Code(s): E78.5 - Hyperlipidemia, unspecified PLAN: She does have a history of hyperlipidemia and will continue with high intensity statin. HPI Consult Data Date of Consult: 05/27/25 HPI Narrative HPI Narrative: MARCIA MASCORRO, is a 69 F who presents to the emergency room with left-sided chest discomfort as well as left shoulder discomfort. She has a history of chronic arthritis and anxiety and is being followed up by the pain management physicians. Patient has history of nonischemic cardiomyopathy with [...] with LV apical thrombus. From a cardiac standpoint,the patient had been doing well. She doesacknowledge chest pain- midsternal this does radiate to her left arm. She states this occurs with exe rtion and at rest. She does acknowledge SOB with exertion and at rest. She denies Orthopnea, and PND. She does not have bleeding issues; no blood in urine, stool or nosebleeds. She denies any decrease in energy level, myalgias, or claudication. She does not have edema, or sudden weight gain. She states that she does have lightheadedness when walking. During this visit her EKG did not demonstrate anysignificant changes but her cardiac enzymes were abnormal and she also had an echocardiogram which demonstrated reduced ejection fraction of 20% with a probable apical thrombus. [facility] Medical History Chronic pain Kidney disease [...] reflux disease) Hyperlipidemia 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 Tobacco abuse [...] tablet 5 mg PO DAILY 09/28/2409/27 History polyethylene glycol 3350 17 17 g PO [...] PO QDAY #90 tabs 10/04 Unknown Rx clopidogrel 75 mg tablet 75 mg PO QDAY 01/13/25 Unkno wn History omeprazole 40 mg capsule,delayed 40 mg PO QDAY 5 Unknown History release potassium chloride 20 mEq 20 meq PO QDAY 01/13/25 Unkn own History tablet,extended release sertraline 50 mg tablet 50 mg PO QDAY 01/13/25 Unkno wn History spironolactone 25 mg tablet 25 mg PO QDAY 01/13/25 Unk nown History Allergy/AdvReac Type Severity Reaction Status Date / Time Iodinated Contrast Media Allergy SOB Verified 05/26/25 06:10 (iodine contrast) Family History Mother Hypertension CAD [...] substance use type: does not use ROS Constitutional Constitutional: Denies fever(s) or weight loss Eyes Eyes: Reports systems reviewed and no addt'l complaints, except as documented ENT HEENT: Reports systems reviewed and no addt'l complaints, except as documented Cardiovascular Cardiovascular: Reports chest pain at rest and chest pain with activity; Denies dyspnea at rest, dyspnea on exertion, edema, palpitations or paroxysmal nocturnal dyspnea Respiratory/Chest Respiratory/Chest: Reports shortness of breath at rest; Denies dyspnea on exertion, productive cough or shortness of breath with exertion Gastrointestinal Gastrointestinal: Denies change in bowel habits, nausea, vomiting or weight changes Genitourinary Genitourinary: Denies difficulty urinating Musculoskeletal Musculoskeletal: Denies joint stiffness or muscle weakness Integumentary Integumentary: Denies lesions Neurologic Neurologic: Denies dizziness or syncope Psychiatric Psychiatric: Denies anxiety Endocrine Endocrinology: Denies excessive sweating or fatigue Hematologic/Lymphatic Hematologic/Lymphatic: Denies anemia Allergic/Immunologic Allergic/Immunologic: Denies seasonal rhinorrhea Physical Exam Const alert, oriented x3 and no apparent distress General Appearance: cooperative HEENT hearing grossly normal bilaterally Head and Scalp: atraumatic Eyes EOMs intact bilaterally Neck General: normal visual inspection Chest inspection of chest normal and palpation of chest normal Resp normal respiratory effort Auscultation: clear to auscultation bilaterally Cardio regular rate, regular rhythm, S1 normal heart sound and S2 normal heart sound Jugular Venous Distention: JVD GI normal to inspection, nondistended, normoactive bowel sounds Extremity normal capillary refill and no pedal edema Peripheral Pulses: Yes pulses 2+ throughout and femoral pulses present Skin no rashes or lesions noted Neuro oriented x3 and CN's II-XII intact bilaterally Psych Appearance: grossly normal and appropriate Objective Data Vital Signs: Vital Signs Temp Pulse Resp BP Pulse Ox O2 Del Method O2 Flow Rate 98.1 F 79 18 118/76 94 Nasal Cannula 3 05/27/25 09:39 05/27/25 09:39 05/27/25 09:39 05/27/25 09:39 05/27/25 09:39 05/27/25 09:39 05/27/25 09:39 Oxygen Flow Rate (L/min) 3 Oxygen Delivery Method Nasal Cannula Weight: 172 lb 6.424 oz Body Mass Index (BMI) 28.7 Intake & Output: Intake and Output for Last 24 Hours 05/25/25 05/26/25 05/27/25 23:59 23:59 23:59 Intake Total 316.62 / 716.62 765.86 / 765.86 Output Total 1900 / 1900 Balance 316.62 / -383.38 -1134.14 / -1134.14 Lab / Micro Data 05/27/25 03:51 05/27/25 03:51 Labs: Laboratory Results - last 24 hr 05/26/25 06:00: PT 12.8, INR 0.9 05/26/25 08:15: Phosphorus 4.5, Magnesium Cancelled, Total Bilirubin < 0.15, Direct Bilirubin < 0.08, AST 35 H, ALT 20, Alkaline Phosphatase 153 H, Total Protein 6.0, Albumin 3.4, Globulin 2.6 05/26/25 11:00: APTT > 200.0 H*, Troponin T Hi Sens 4Hr 598 H* 05/26/25 20:23: APTT 39.0 H 05/27/25 03:51: WBC 7.5, RBC 3.93 L, Hgb 12.5, Hct 38.0, MCV 96.7, MCH 31.8, MCHC 32.9, RDW Std Deviation 48.8 H, RDW Coeff of Sariah 13.8, Plt Count 174, MPV 9.5, Immature Gran % (Auto) 0.400, Neut % (Auto) 81.6 H, Lymph % (Auto) 15.8 L, Rogers % (Auto) 1.9, Eos % (Auto) 0.0, Baso % (Auto) 0.3, Absolute Neuts (auto) 6.1, Absolute Lymphs (auto) 1.18, Nucleated RBC % 0, APTT 68.6 H, Sodium 140, Potassium 4.3, Chloride 103, Carbon Dioxide 28.8, Anion Gap 8, BUN 17, Creatinine 0.65 L, Estim Creat ClearCalc 69.57, Est GFR (MDRD) Non-Af 96, BUN/Creatinine Ratio 26.6 H, Glucose 146 H, Calcium 9.5, Triglycerides 68, Cholesterol 188, LDL Cholesterol, Calc 123, VLDL Cholesterol 14, HDL [id number], Cholesterol/HDL Ratio 3.66, TSH 0.505 Micro: Microbiology 05/26/25 14:14 Mucosa - Nasopharyngeal Respiratory Panel (PCR) - Final 05/26/25 13:12 Nasal Secretion MRSA (PCR) - Final 05/26/25 13:12 Mucosa - Nose Coronavirus COVID-19 PCR - Final Cardiology Labs/Tests 05/26/25 06:00: PT 12.8, INR 0.9 05/26/25 08:15: Phosphorus 4.5, Magnesium Cancelled, Total Bilirubin < 0.15, Direct Bilirubin < 0.08 05/26/25 11:00: APTT > 200.0 H* 05/26/25 20:23: APTT 39.0 H 05/27/25 03:51: WBC 7.5, RBC 3.93 L, Hgb 12.5, Hct 38.0, MCV 96.7, MCH 31.8, MCHC 32.9, Plt Count 174, MPV 9.5, Immature Gran % (Auto) 0.400, Neut % (Auto) 81.6 H, Lymph % (Auto) 15.8 L, Rogers % (Auto) 1.9, Eos % (Auto) 0.0, Baso % (Auto) 0.3, Absolute Neuts (auto) 6.1, Nucleated RBC % 0, APTT 68.6 H, Sodium 140, Potassium 4.3, Chloride 103, Carbon Dioxide 28.8, Anion Gap 8, BUN 17, Creatinine 0.65 L, Est GFR (MDRD) Non-Af 96, BUN/Creatinine Ratio 26.6 H, [id number] H, Calcium 9.5, [id number], Cholesterol 188, VLDL Cholesterol 14, HDL Cholesterol 51, Cholesterol/HDL Ratio 3.66 Rhythm: EKG: ECHO: Stress Test: Cardiac Cath: PCI: CT Surgery: Holter monitor: EPS: PPM: CXR: Chest CT Scan: Radiography Diagnostic Testing: Radiology Impression Echocardiogram 05/26/25 12:06 Interpretation Summary Normal LV size. The left ventricular ejection fraction is 25 %. Thrombus adherent to the anterior apical wall. Severe segmental systolic dysfunction (see wall motion). Ordering Physician: Regan Russo Referring Physician: Gabriel Galvan M.D. Performed By: Rehana Gomes RCS STE Risk Score for UA/STEMI Assesmment (YES = 1) Risk Stratification Applicable: Yes Age > or = 65: Yes > or = 3 CAD risk factors (HTN, Hypercholesterolemia, Diabetes, family hx, current smoker): Yes Known CAD (Stenosis > or = 50%): No ASA used in past 7 days: Yes Severe angina (> or = 2 episodes in 24 hrs): No EKG ST change > or = 0.5mm: No Positive cardiac markers: Yes Score CELESTE Risk Score of mortality/ recurrent ischemic event over the next 14 days: 4 = 19.9% - Intermediate 05/27/25 1018 Cosigner Signature (if applicable): CC: Dr. Gabriel Galvan MD~ Signed [facility]09-20-2025 Progress note Author Carla Diane [facility] Note Date/Time May 26, 2025 11:47pm [facility] Medical Records Department [address] [place] [address] Progress Note - Hospitalist 05/26/252344 MR#: [id number] Acct: [id number] Name: MARCIA MASCORRO Rep #:[id number] : 1955 69 From: Carla Jerome PCP: Dr. Gabriel Galvan MD Status:AD M IN Location: [place] [address] Hospitalist Note Notified of 8beat run of VT, observed on telemetry, without acute change in presentation. Reviewed labs from admission: K 4.2, Ph 4.5, Mg 2.2, troponin max 598, proBNP 2936. 05/26/252346 <Electronically signed by Carla AVILEZ> Cosigner Signature (if applicable): CC: ~ Signed [facility] Work Phone: [phone] 538-202409-19-2025 Progress note [facility] Medical Records Department [address] [place] [address] Progress Note - Hospitalist 05/26/252344 MR#: [id number] Acct: [id number] Name: MARCIA MASCORRO [place] Rep #:[id number] : 1955 69 From: Carla Jerome PCP: Dr. Gabriel Galvan MD Status:AD M IN Location: [place] [address] Hospitalist Note Notified of 8beat run of VT, observed on telemetry, without acute change in presentation. Reviewed labs from admission: K 4.2, Ph 4.5, Mg 2.2, troponin max 598, proBNP 2936. 05/26/252346 Cosigner Signature (if applicable): CC: ~ Signed [facility]09-19-2025 History and physical note Author Regan Russo [facility] Note Date/Time May 26, 2025 12:39pm [facility] Medical Records Department [address] [place] [address] H&P Exam - Hospitalist 05/26/25941 MR#: [id number] Acct: [id number] Name: MARCIA MASCORRO Rep #:[id number] : 1955 69 From: Regan Quiñones PCP: Dr. Gabriel Galvan MD Status:AD M IN Location: [facility] [id number] - General General Date of Admission: 05/26/25 Date of Service: 05/26/25 Chief Complaint: Left-sided chest pain, shoulder pain and shortness of breath since yesterday morning. HPI Narrative MARCIA MASCORRO, is a 69 F came to ED with left-sided chest pain with radiation toleft shoulder and arm along with shortness of breath since 6 AM today. Patient stated that she has been little sick for last 3 days with cough, shortness of breath and wheezing and was given some antibiotic as an outpatient. Initially her cough was dry but now it is mildly productive with thick whitish sputum. She has wheezing. She is also on Airsupra, Symbicort, Spiriva inhaler for her COPD. She still smokes cigarettes less than a pack a day. No fever. She has chronic anxiety and pain of left upper extremity and follows Dr. Forrest. She omi Ativan and hydrocodone as outpatient medications She denies any improvement in the pain since 6 AM. In ED, vitals shows BP 150s/111, pulse ox 93% on room air. She was given aspirin, IV morphine, haloperidol were given in the ED and started on IV heparindrip. Troponins elevated. Twelve-lead EKG shows no specific ST-T changes suggestive of acute ischemia [facility] Medical History Chronic pain Kidney disease [...] reflux disease) Hyperlipidemia 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 Tobacco abuse [...] tablet 5 mg PO DAILY 09/28/2409/27 History polyethylene glycol 3350 17 17 g PO [...] PO QDAY #90 tabs 10/04 Unknown Rx clopidogrel 75 mg tablet 75 mg PO QDAY 01/13/25 Unkno wn History omeprazole 40 mg capsule,delayed 40 mg PO QDAY 5 Unknown History release potassium chloride 20 mEq 20 meq PO QDAY 01/13/25 Unkn own History tablet,extended release sertraline 50 mg tablet 50 mg PO QDAY 01/13/25 Unkno wn History spironolactone 25 mg tablet 25 mg PO QDAY 01/13/25 Unk nown History Allergy/AdvReac Type Severity Reaction Status Date / Time Iodinated Contrast Media Allergy SOB Verified 05/26/25 06:10 (iodine contrast) Family History Mother Hypertension CAD [...] use type: does not use ROS ROS Narrative Constitutional: Reports chronic fatigue and weakness. No fever. HEENT: Reports systems reviewed and no addt'l complaints, except as documented Respiratory/Chest: COPD, chronic smoker. Chronic wheezing. CVS: As described in HPI Gastrointestinal: Denies coffee ground emesis, hematemesis or vomiting Genitourinary: Denies burning urination or new urinary tract symptoms Musculoskeletal: Denies acute joint pain or limited range of motion. No acute injury Neurologic: Denies seizure-like symptoms. Psychiatric: Chronic pain syndrome of left upper extremity. On Ativan, anxiety and depression skin: No ulcer. No rash Endocrinology: Reports systems reviewed and no addt'l complaints, except as documented Hematologic/Lymphatic: Reports systems reviewed and no addt'l complaints, exceptas documented Rest 14 ROS are negative except as mentioned in HPI Vital Signs Vital Signs Vital Signs: 05/26/25 06:10 05/26/25 06:15 05/26/25 07:10 Temperature 98.0 F Temperature Source Oral Pulse Rate 76 72 Respiratory Rate 18 18 Respiratory Pattern Normal Blood Pressure 150/111 H 162/114 H Blood Pressure Mean 124 130 Pulse Ox 93 97 Oxygen Delivery Method Room Air 05/26/25 08:00 05/26/25 09:00 Temperature Temperature Source Pulse Rate 79 90 Respiratory Rate 18 16 Respiratory Pattern Blood Pressure 135/81 H 135/83 H Blood Pressure Mean 99 100 Pulse Ox 99 96 Oxygen Delivery Method Weight Weight: 177 lb 7.554 oz Body Mass Index (BMI) 33.5 Physical Exam Narrative General: Alert, Oriented x3, Cooperative HEENT: Atraumatic, PERRLA, EOMI, Normocephalic. Oral: No Gingival or Mucosal Lesions/ Ulcerations Neck: Supple, No JVD, Negative Carotid Bruits Chest wall/Lungs: Air entry severely diminished in both lungs. Bilateral grosswheezing. Mild dyspnea at rest Cardiovascular: Sinus rhythm. S1-S2 regular, soft systolic murmur Abdomen: Bowel Sounds Present, Soft, Non Tender, Non-Distended : No dysuria. No renal angle tenderness. No suprapubic tenderness. Extremities: No edema, Capillary Refill Less than 3 Seconds Skin: No rashes, No breakdown Musculoskeletal: ROM limited over left shoulder and upper extremity. No acute tenderness palpation of joints of extremities Neurological: Cranial nerves II-XII grossly intact, DTR 2+/4. No acute focal neurological deficit. Psych/Mental Status: Anxious, panic Results Lab / Micro Data 05/26/25 06:00 05/26/25 06:00 Labs: Laboratory Results - last 24 hr 05/26/25 06:00: WBC 8.4, RBC 4.15 L, Hgb 13.4, Hct 40.5, MCV 97.6, MCH 32.3 H, MCHC 33.1, RDW Std Deviation 50.5 H, RDW Coeff of Sariah 14.1, Plt Count 230, MPV 9.8, Immature Gran % (Auto) 0.200, Neut % (Auto) 31.2 L, Lymph % (Auto) 55.8 H, Rogers % (Auto) 8.8, Eos % (Auto) 3.1, Baso % (Auto) 0.9, Absolute Neuts (auto) 2.6, Absolute Lymphs (auto) 4.71 H, Nucleated RBC % 0, Sodium 144, Potassium 4.2, Chloride 109 H, Carbon Dioxide 26.6, Anion Gap 9, BUN 16, Creatinine 0.90, Estim Creat Clear Calc 57.50, Est GFR (MDRD) Non-Af 70, BUN/Creatinine Ratio 18.1, Glucose 122 H, Calcium 9.2, Magnesium 2.2, Troponin T High Sens 18 H D, NTpro BNP II 2936 H 05/26/25 08:15: Troponin T Hi Sens 2 Hr 102 H* Imaging Radiology Impression Chest X-Ray 05/26/25 06:48 IMPRESSION: Perihilar airspace opacities may represent CHF, pulmonary edema or pneumonia. Small pleural effusion. Reading Location: [facility] Assessment & Plan Assessment/Plan (1) NSTEMI, initial episode of care: PLAN: Plan Patient is a 68-year-old lady who presented with shortness of breath diagnosed with COPD with acute exacerbation admitted to regular nursing floor for further management 1. Atypical chest pain possible non-STEMI with contribution from panic/anxiety and COPD exacerbation: Patient is being admitted to PCU on telemetry. Started on baby aspirin, IV morphine and IV heparin drip. Home medication carvedilol, Plavix and atorvastatin regimen. Nitroglycerin ointment ordered. Twelve-lead EKG shows NSR 72 bpm, QTc 424 ms. QRS 128 ms. Troponins are 18, 102 and 598. proBNP about 3000. CELESTE risk score 5/7 with 26.6% risk of mortality from UT/recurrent ischemia event in next 2 weeks. Triple Valve Tester consulted. Patient has significant contusion for anxiety and panic therefore IV Ativan 1 dose 0.5 mg ordered. Patient on Ativan 1 mg 3 times daily at home. 2. COPD exacerbation: Patient is on send she is on antibiotic but is not seen on patient's home medication. Chest x-ray initially reviewed and shows perihilar congestion/venous congestion consistent with CHF exacerbation. No specific consolidation seen. Patient is being managed on scheduled bronchodilator, IV Solu-Medrol, Mucinex, incentive spirometry and Pep. 3. CHF exacerbation: Started on IV Lasix. Heart failure core measures including intake and output, fluid restriction less than 1500 mL, daily weight monitoring, kidney and electrolytes monitoring. Last echo in July 2022 shows EF 30% moderately dilated LV, 1+ MR. 4. Peripheral arterial disease ? Patient is on antiplatelet therapy as well as statin therapy, atorvastatin continued 5. Dyslipidemia ?Patient is on statin therapy, continued at home dose 7. Hypertension ? Blood pressure elevated, home medications continued with dose adjustment as needed 8. Depression with anxiety - Patient on sertraline and lorazepam 1 mg p.o. 3 times daily as needed. Continued 9. Chronic pain syndrome ? Patient follows Dr. Forrest. On [place] at home. Patient's son stated that she is on sustained-release oxycodone or morphine but not found on the patient's home med list. 10. Hyperglycemia Glucose elevated 122. Probably due to recurrent Solu-Medrol/steroid 11. DVT prophylaxis ? On IV heparin drip Living will/advanced directive/end of life care: Patient does not have living will or advanced directive. His son present in the room is next to kin/power ofattorney for health. After discussion of benefits/risks procedures involved with full code, DNR CC arrest and DNR CC, the patient opted for full code. Patient does want artificial life support including intubation, tube feed, ventilator and/chest compression, central venous catheter, vasopressor and DC shock if needed Total time spent in [id number] encounter in discussion of advanced directive 17 minutes. Laboratory Results 05/26/25 06:00: WBC 8.4, RBC 4.15 L, Hgb 13.4, Hct 40.5, MCV 97.6, MCH 32.3 H, MCHC 33.1, RDW Std Deviation 50.5 H, RDW Coeff of Sariah 14.1, Plt Count 230, MPV 9.8, Immature Gran % (Auto) 0.200, Neut % (Auto) 31.2 L, Lymph % (Auto) 55.8 H, Rogers % (Auto) 8.8, Eos % (Auto) 3.1, Baso % (Auto) 0.9, Absolute Neuts (auto) 2.6, Absolute Lymphs (auto) 4.71 H, Nucleated RBC % 0, PT 12.8, INR 0.9, Sodium 144, Potassium 4.2, Chloride 109 H, Carbon Dioxide 26.6, Anion Gap 9, BUN 16, Creatinine 0.90, Estim Creat Clear Calc 57.50, Est GFR (MDRD) Non-Af 70, BUN/Creatinine Ratio 18.1, Glucose 122 H, Calcium 9.2, Magnesium 2.2, Troponin THigh Sens 18 H D, NT pro BNP II 2936 H 05/26/25 08:15: Phosphorus 4.5, Magnesium Cancelled, Total Bilirubin < 0.15, Direct Bilirubin < 0.08, AST 35 H, ALT 20, Alkaline Phosphatase 153 H, Troponin T Hi Sens 2 Hr 102 H*, Total Protein 6.0, Albumin 3.4, Globulin 2.6 05/26/25 11:00: APTT > 200.0 H*, Troponin T Hi Sens 4Hr 598 H* Clinical Impression(s) from Imaging Studies Chest X-Ray 05/26/25 06:48 IMPRESSION: Perihilar airspace opacities may represent CHF, pulmonary edema or pneumonia. Small pleural effusion. Charges/Coding Visit Charges Inpatient E&M: 01920 Init Hosp L3 Procedures Hospitalists Procedures: 13022 Advncd Care Plan 30 Min CELESTE Risk Score for UA/STEMI Assesmment (YES = 1) Age > or = 65: Yes > or = 3 CAD risk factors (HTN, Hypercholesterolemia, Diabetes, family hx, current smoker): Yes Known CAD (Stenosis > or = 50%): Yes ASA used in past 7 days: Yes Severe angina (> or = 2 episodes in 24 hrs): No EKG ST change > or = 0.5mm: No Positive cardiac markers: Yes Score CELESTE Risk Score of mortality/ recurrent ischemic event over the next 14 days: 5 = 26.6% - HIGH RISK 05/26/25 1239 <Electronically signed by Regan Russo MD> Cosigner Signature (if applicable): CC: Dr. Gabriel Galvan MD; Dr. Regan Russo MD~ Signed [facility] Work Phone: 1(287) 663-842009-19-2025 History and physical note [facility] Medical Records Department [address] [place] [address] H&P Exam - Hospitalist 05/26/2542 MR#: [id number] Acct: [id number] Name: MARCIA MASCORRO Rep #:[id number] : 1955 69 From: Regan Quiñones PCP: Dr. Gabriel Galvan MD Status:AD M IN Location: [facility] [id number] HPI - General General Date of Admission: 05/26/25 Date of Service: 05/26/25 Chief Complaint: Left-sided chest pain, shoulder pain and shortness of breath since yesterday morning. HPI Narrative MARCIA MASCORRO, is a 69 F came to ED with left-sided chest pain with radiation toleft shoulder and arm along with shortness of breath since 6 AM today. Patient stated that she has been little sick forlast 3 days with cough, shortness of breath and wheezing and was given some antibiotic as an outpatient. Initially her cough was dry but now it is mildly productive with thick whitish sputum. She haswheezing. She is also on Airsupra, Symbicort, Spiriva inhaler for her COPD. She still smokes cigarettes less than a pack a day. No fever. She has chronic anxiety and pain of left upper extremity and follows Dr. Forrest. She omi Ativan and hydrocodone as outpatient medications She denies any improvement in the pain since 6 AM. In ED, vitals shows BP 150s/111, pulse ox 93% on room air. She was given aspirin, IV morphine, haloperidol were given in the ED and started on IV heparindrip. Troponins elevated. Twelve-lead EKG shows no specific ST-T changes suggestive of acute ischemia [facility] Medical History Chronic pain Kidney disease [...] reflux disease) Hyperlipidemia 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 Tobacco abuse [...] tablet 5 mg PO DAILY 09/28/2409/27 History polyethylene glycol 3350 17 17 g PO [...] PO QDAY #90 tabs 10/04 Unknown Rx clopidogrel 75 mg tablet 75 mg PO QDAY 01/13/25 Unkno wn History omeprazole 40 mg capsule,delayed 40 mg PO QDAY 5 Unknown History release potassium chloride 20 mEq 20 meq PO QDAY 01/13/25 Unkn own History tablet,extended release sertraline 50 mg tablet 50 mg PO QDAY 01/13/25 Unkno wn History spironolactone 25 mg tablet 25 mg PO QDAY 01/13/25 Unk nown History Allergy/AdvReac Type Severity Reaction Status Date / Time Iodinated Contrast Media Allergy SOB Verified 05/26/25 06:10 (iodine contrast) Family History Mother Hypertension CAD [...] use type: does not use ROS ROS Narrative Constitutional: Reports chronic fatigue and weakness. No fever. HEENT: Reports systems reviewed and no addt'l complaints, except as documented Respiratory/Chest: COPD, chronic smoker. Chronic wheezing. CVS: As described in HPI Gastrointestinal: Denies coffee ground emesis, hematemesis or vomiting Genitourinary: Denies burning urination or new urinary tract symptoms Musculoskeletal: Denies acute joint pain or limited range of motion. No acute injury Neurologic: Denies seizure-like symptoms. Psychiatric: Chronic pain syndrome of left upper extremity. On Ativan, anxiety and depression skin: No ulcer. No rash Endocrinology: Reports systems reviewed and no addt'l complaints, except as documented Hematologic/Lymphatic: Reports systems reviewed and no addt'l complaints, exceptas documented Rest 14 ROS are negative except as mentioned in HPI Vital Signs Vital Signs Vital Signs: 05/26/25 06:10 05/26/25 06:15 05/26/25 07:10 Temperature 98.0 F Temperature Source Oral Pulse Rate 76 72 Respiratory Rate 18 18 Respiratory Pattern Normal Blood Pressure 150/111 H 162/114 H Blood Pressure Mean 124 130 Pulse Ox 93 97 Oxygen Delivery Method Room Air 05/26/25 08:00 05/26/25 09:00 Temperature Temperature Source Pulse Rate 79 90 Respiratory Rate 18 16 Respiratory Pattern Blood Pressure 135/81 H 135/83 H Blood Pressure Mean 99 100 Pulse Ox 99 96 Oxygen Delivery Method Weight Weight: 177 lb 7.554 oz Body Mass Index (BMI) 33.5 Physical Exam Narrative General: Alert, Oriented x3, Cooperative HEENT: Atraumatic, PERRLA, EOMI, Normocephalic. Oral: No Gingival or Mucosal Lesions/ Ulcerations Neck: Supple, No JVD, Negative Carotid Bruits Chest wall/Lungs: Air entry severely diminished in both lungs. Bilateral grosswheezing. Mild dyspnea at rest Cardiovascular: Sinus rhythm. S1-S2 regular, soft systolic murmur Abdomen: Bowel Sounds Present, Soft, Non Tender, Non-Distended : No dysuria. No renal angle tenderness. No suprapubic tenderness. Extremities: No edema, Capillary Refill Less than 3 Seconds Skin: No rashes, No breakdown Musculoskeletal: ROM limited over left shoulder and upper extremity. No acute tenderness palpation of joints of extremities Neurological: Cranial nerves II-XII grossly intact, DTR 2+/4. No acute focal neurological deficit. Psych/Mental Status: Anxious, panic Results Lab / Micro Data 05/26/25 06:00 05/26/25 06:00 Labs: Laboratory Results - last 24 hr 05/26/25 06:00: WBC 8.4, RBC 4.15 L, Hgb 13.4, Hct 40.5, MCV 97.6, MCH 32.3 H, MCHC 33.1, RDW Std Deviation 50.5 H, RDW Coeff of Sariah 14.1, Plt Count 230, MPV 9.8, Immature Gran % (Auto) 0.200, Neut %(Auto) 31.2 L, Lymph % (Auto) 55.8 H, Rogers % (Auto) 8.8, Eos % (Auto) 3.1, Baso % (Auto) 0.9, Absolute Neuts (auto) 2.6, Absolute Lymphs (auto) 4.71 H, Nucleated RBC % 0, Sodium 144, Potassium 4.2, Chloride 109 H, Carbon Dioxide 26.6, Anion Gap 9, BUN 16, Creatinine 0.90, Estim Creat Clear Calc 57.50, Est GFR (MDRD) Non-Af 70, BUN/Creatinine Ratio 18.1, Glucose 122 H, Calcium 9.2, Magnesium 2.2, Troponin T High Sens 18 H D, NTpro BNP II 2936 H 05/26/25 08:15: Troponin T Hi Sens 2 Hr 102 H* Imaging Radiology Impression Chest X-Ray 05/26/25 06:48 IMPRESSION: Perihilar airspace opacities may represent CHF, pulmonary edema or pneumonia. Small pleural effusion. Reading Location: [facility] Assessment & Plan Assessment/Plan (1) NSTEMI, initial episode of care: PLAN: Plan Patient is a 68-year-old lady who presented with shortness of breath diagnosed with COPD with acuteexacerbation admitted to regular nursing floor for further management 1. Atypical chest pain possible non-STEMI with contribution from panic/anxiety and COPD exacerbation: Patient is being admitted to PCU on telemetry. Started on baby aspirin, IV morphine and IV heparin drip. Home medication carvedilol, Plavix and atorvastatin regimen. Nitroglycerin ointment ordered.Twelve-lead EKG shows NSR 72 bpm, QTc 424 ms. QRS 128 ms. Troponins are 18, 102 and 598. proBNP about 3000. CELESTE risk score 5/7 with 26.6% risk of mortality from UT/recurrent ischemia event in next 2weeks. Triple Valve Tester consulted. Patient has significant contusion for anxiety and panic therefore IVAtivan 1 dose 0.5 mg ordered. Patient on Ativan 1 mg 3 times daily at home. 2. COPD exacerbation: Patient is on send she is on antibiotic but is not seen on patient's home medication. Chest x-ray initially reviewed and shows perihilar congestion/venous congestion consistent with CHF exacerbation. No specific consolidation seen. Patient is being managed on scheduled bronchodilator, IV Solu-Medrol, Mucinex, incentive spirometry and Pep. 3. CHF exacerbation: Started on IV Lasix. Heart failure core measures including intake and output, fluid restriction less than 1500 mL, daily weight monitoring, kidney and electrolytes monitoring. Last echo in July 2022 shows EF 30% moderately dilated LV, 1+ MR. 4. Peripheral arterial disease ? Patient is on antiplatelet therapy as well as statin therapy, atorvastatin continued 5. Dyslipidemia ?Patient is on statin therapy, continued at home dose 7. Hypertension ? Blood pressure elevated, home medications continued with dose adjustment as needed 8. Depression with anxiety - Patient on sertraline and lorazepam 1 mg p.o. 3 times daily as needed. Continued 9. Chronic pain syndrome ? Patient follows Dr. Forrest. On [place] at home. Patient's son stated that she is on sustained-release oxycodone or morphine but not found on the patient's home med list. 10. Hyperglycemia Glucose elevated 122. Probably due to recurrent Solu-Medrol/steroid 11. DVT prophylaxis ? On IV heparin drip Living will/advanced directive/end of life care: Patient does not have living will or advanced directive. His son present in the room is next to kin/power ofattorney for health. After discussion of benefits/risks procedures involved with full code, DNR CC arrest and DNR CC, the patient opted for full code. Patient does want artificial life support including intubation, tube feed, ventilator and/chest compression, central venous catheter, vasopressor and DC shock if needed Total time spent in [id number] encounter in discussion of advanced directive 17 minutes. Laboratory Results 05/26/25 06:00: WBC 8.4, RBC 4.15 L, Hgb 13.4, Hct 40.5, MCV 97.6, MCH 32.3 H, MCHC 33.1, RDW Std Deviation 50.5 H, RDW Coeff of Sariah 14.1, Plt Count 230, MPV 9.8, Immature Gran % (Auto) 0.200, Neut %(Auto) 31.2 L, Lymph % (Auto) 55.8 H, Rogers % (Auto) 8.8, Eos % (Auto) 3.1, Baso % (Auto) 0.9, Absolute Neuts (auto) 2.6, Absolute Lymphs (auto) 4.71 H, Nucleated RBC % 0, PT 12.8, INR 0.9, Sodium 144, Potassium 4.2, Chloride 109 H, Carbon Dioxide 26.6, Anion Gap 9, BUN 16, Creatinine 0.90, Estim Creat Clear Calc 57.50, Est GFR (MDRD) Non-Af 70, BUN/Creatinine Ratio 18.1, Glucose 122 H, Calcium 9.2, Magnesium 2.2, Troponin THigh Sens 18 H D, NT pro BNP II 2936 H 05/26/25 08:15: Phosphorus 4.5, Magnesium Cancelled, Total Bilirubin < 0.15, Direct Bilirubin < 0.08, AST 35 H, ALT 20, Alkaline Phosphatase 153 H, Troponin T Hi Sens 2 Hr 102 H*, Total Protein6.0, Albumin 3.4, Globulin 2.6 05/26/25 11:00: APTT > 200.0 H*, Troponin T Hi Sens 4Hr 598 H* Clinical Impression(s) from Imaging Studies Chest X-Ray 05/26/25 06:48 IMPRESSION: Perihilar airspace opacities may represent CHF, pulmonary edema or pneumonia. Small pleural effusion. Charges/Coding Visit Charges Inpatient E&M: 66085 Init Hosp L3 Procedures Hospitalists Procedures: 57693 Advncd Care Plan 30 Min CELESTE Risk Score for UA/STEMI Assesmment (YES = 1) Age > or = 65: Yes > or = 3 CAD risk factors (HTN, Hypercholesterolemia, Diabetes, family hx, current smoker): Yes Known CAD (Stenosis > or = 50%): Yes ASA used in past 7 days: Yes Severe angina (> or = 2 episodes in 24 hrs): No EKG ST change > or = 0.5mm: No Positive cardiac markers: Yes Score CELESTE Risk Score of mortality/ recurrent ischemic event over the next 14 days: 5 = 26.6% - HIGH RISK 05/26/25 1239 Cosigner Signature (if applicable): CC: Dr. Gabriel Galvan MD; Dr. Regan Russo MD~ Signed [facility]09-19-2025 Discharge summary Author Ross Lou [facility] Note Date/Time May 26, 2025 9:38am [facility] Medical Records Department [address] [place] [address] Emergency Department Summary 05/26/25 MR#: [id number] Acct: [id number] Name: MARCIA MASCORRO Rep #:[id number] : [id number] 69 From: Ross Lou DO PCP: Dr. Gabriel Galvan MD Status:RE G ER Location: ED ADDENDUM by Dr. Odell Dwyer DO on 05/26/25 at 0938 Patient was turned over to me by Dr. Lou@ 0830 Brief history: 69-year-old female presents with chest pain Physical exam: As below Labs and images reviewed (if obtained): Delta troponin was elevated, ruled in for hospitalization based on [facility] high-sensitivity troponin protocol Discussed with cardiology (Dr. Curtis) recommended heparin and admission. Also discussed with hospitalist (Dr. Russo) who agreed with admission to PCU. MDM/plan: No acute events under my care. Patient reported ongoing chest pain. She was given nitroglycerin and aspirin. Admit to PCU 05/26/25 0938<Electronically signed by Odell Dwyer DO> Cosigner Signature (if applicable): cc: Dr. Gabriel Galvan MD ~* Signed HPI History of Present Illness Chief Complaint: Chest Pain Informant: patient and EMS Narrative Narrative: Patient is a 69-year-old female with past medical history of COPD emphysema as well as hypertension hyperlipidemia and ischemic cardiomyopathy. She presents with complaint of chest discomfort. She states that she awoke this morning roughly 1 hour prior to arrival and noticed some mid to left-sided chest pain that radiated towards her shoulder. She states there was no associated nausea vomiting diaphoresis or shortness of breath. She states that there has been no recent trauma or sick symptoms. She reports she is taking all of her home medication as directed but despite doing so has not had improvement of her symptoms. And secondary to this called EMS to be brought in for evaluation [facility] Medical History Chronic pain Kidney disease Asthma [...] reflux disease) Hyperlipidemia 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 Tobacco abuse [...] tablet 5 mg PO DAILY 09/28/2409/27 History polyethylene glycol 3350 17 17 g PO [...] PO QDAY #90 tabs 10/04 Unknown Rx clopidogrel 75 mg tablet 75 mg PO QDAY 01/13/25 Unkno wn History omeprazole 40 mg capsule,delayed 40 mg PO QDAY 5 Unknown History release potassium chloride 20 mEq 20 meq PO QDAY 01/13/25 Unkn own History tablet,extended release sertraline 50 mg tablet 50 mg PO QDAY 01/13/25 Unkno wn History spironolactone 25 mg tablet 25 mg PO QDAY 01/13/25 Unk nown History Allergy/AdvReac Type Severity Reaction Status Date / Time Iodinated Contrast Media Allergy SOB Verified 05/26/25 06:10 (iodine contrast) Family History Mother Hypertension CAD [...] ROS ROS ED Constitutional Constitutional ED: Denies chills or fever(s) Eyes Eyes: Denies change in vision ENT ENT ED: Denies rhinorrhea or sore throat Cardiovascular Cardiovascular: Reports chest pain; Denies palpitations or racing heartbeat Respiratory/Chest Respiratory/Chest: Reports cough and other Details: Patient reports cough is chronic in nature ; Denies dyspnea Gastrointestinal Gastrointestinal: Denies abdominal pain, diarrhea, nausea or vomiting Genitourinary Genitourinary ED: Denies dysuria Musculoskeletal Musculoskeletal: Denies myalgias Integumentary Denies rash Neurologic Neurologic: Denies headache(s) Psychiatric Psychiatric: Reports anxiety Hematologic/Lymphatic Hematologic/Lymphatic: Reports easy bleeding and easy bruising EXAM Physical Exam Const Vital Signs: 05/26/25 06:10 05/26/25 06:15 05/26/25 07:10 Temperature 98.0 F Temperature Source Oral Pulse Rate 76 72 Respiratory Rate 18 18 Respiratory Pattern Normal Blood Pressure 150/111 H 162/114 H Blood Pressure Mean 124 130 Pulse Ox 93 97 Oxygen Delivery Method Room Air Positive well nourished and well developed General Appearance ED: well developed HEENT HEENT Narrative: Normocephalic atraumatic Eyes PERRL and EOMs intact bilaterally General Eye ED: Negative for scleral icterus Neck supple and no JVD Chest Wall Chest Narrative: There is pain on palpation of the mid to left anterior chest wall without bony deformity or crepitance Resp normal respiratory effort Resp Narrative: Breath sounds are diminished throughout with faint rhonchi in the bilateral lower lobes and expiratory wheezing consistent with history of COPD/smoking However no signs of respiratory distress Cardio regular rate and regular rhythm Rate: other Other Details: Heart is regular rate and rhythm Radial and carotid pulses are equal and symmetric GI non-distended and no masses GI Narrative: Abdomen is soft and nondistended with hypoactive bowel sounds. There is mild pain on palpation along the umbilicus where patient has a ventral hernia that isreducible in nature No voluntary guarding or rigidity or pulsatile mass Auscultation: hypoactive bowel sounds Palpation: soft Extremity normal to inspection Extremity Narrative: No asymmetric edema of bilateral lower extremities Negative Homans' sign bilaterally +1 pitting edema to the bilateral lower extremities that is equal and symmetric Neuro oriented x3, CN's II-XII intact bilaterally and no sensory deficits noted Sensorium / Orientation: alert Psych Mood & Affect: anxious Skin no rashes or lesions noted and no wounds General Skin Exam: Negative for jaundice MDM MDM MDM Narrative Medical decision making narrative: Patient arrived to ER hypertensive but otherwise with stable vitals. She reported mid to left-sided chest discomfort but no associated nausea vomiting diaphoresis shortness of breath. Chart review reveals she does have a history of ischemic cardiomyopathy. She was evaluated by cardiology in September of this year. She has a previous echo from 2022 showing a left ventricular thrombus as well as diminished ejection fraction of approximately 20 to 30%. The recommendation was continued medical management with repeat echocardiogram. Thepatient states she has never followed up to have that obtained. Her EKG was compared to multiple previous ones and is similar in nature without acute ischemic or dysrhythmia change. Also of note was the outpatient cardiology notestates that the patient is typically short of breath at rest and with exertion and also has chest discomfort almost daily. Therefore at this time I feel her symptoms could be related to lung pathology such as pneumonia or congestive heart failure exacerbation or could in theory also be acute coronary syndrome asshe does have multiple risk factors for CAD. I have low concern that her discomfort is from a PE as she is on Xarelto and the chest pain is not pleuriticand is also reproducible. There is also potential that this is her chronic chest discomfort. However in order to help differentiate between an acute exacerbation versus chronic pain I did elect to perform basic laboratory studieswith an initial and delta troponin EKG. as stated above EKG revealed no ischemicchanges and is very similar to her previous. The initial troponin is 18 which is mildly elevated from a value of 11 obtained on December 20 of this year. Her proBNP is elevated but she has a known reduced ejection fraction and her pulse ox is normal on room air going against a CHF exacerbation. At this time the patient will require a delta troponin. I do feel that the value remains flat and the chance this being a acute coronary syndrome is low and her symptoms are most like related to her underlying chronic conditions of ischemic cardiomyopathy and CHF. At this time as the delta troponin and response to therapy is still pending the patient will be signed out to the day physician Dr. Dwyer History & Record Review Discussion w/independent historian: Patient Additional record(s) reviewed:: Prior outpatient record Lab Data Attestation: I reviewed the patient's lab results. Labs: Laboratory Results - last 24 hr 05/26/25 06:00 WBC 8.4 RBC 4.15 L Hgb 13.4 Hct 40.5 MCV 97.6 MCH 32.3 H MCHC 33.1 RDW Std Deviation 50.5 H RDW Coeff of Sariah 14.1 Plt Count 230 MPV 9.8 Immature Gran % (Auto) 0.200 Neut % (Auto) 31.2 L Lymph % (Auto) 55.8 H Rogers % (Auto) 8.8 Eos % (Auto) 3.1 Baso % (Auto) 0.9 Absolute Neuts (auto) 2.6 Absolute Lymphs (auto) 4.71 H Nucleated RBC % 0 Sodium 144 Potassium 4.2 Chloride 109 H Carbon Dioxide 26.6 Anion Gap 9 BUN 16 Creatinine 0.90 Estim Creat Clear Calc 57.50 Est GFR (MDRD) Non-Af 70 BUN/Creatinine Ratio 18.1 Glucose 122 H Calcium 9.2 Magnesium 2.2 Troponin T High Sens 18 H D NT pro BNP II 2936 H Radiography Diagnostic Testing: Clinical Impression(s) from Imaging Studies Chest X-Ray 05/26/25 06:48 IMPRESSION: Perihilar airspace opacities may represent CHF, pulmonary edema or pneumonia. Small pleural effusion. Reading Location: [facility] Chest x-ray as interpreted by emergency medicine physician reveals cardiomegaly with slight increased pulmonary vascular congestion consistent with CHF Discharge Plan Triage Chief Complaint: Chest Pain ED Provider: Ross Lou Dx/Rx/DC Orders Clinical Impression: Nonspecific chest pain, Ischemic cardiomyopathy, Essential hypertension Prescriptions: No Action Spiriva Respimat 2.5 mcg/actuation [...] Rx Instructions: must administer with a meal/food clopidogrel 75 mg tablet 75 mg PO QDAY omeprazole 40 mg capsule,delayed release(DR/EC) 40 mg PO QDAY spironolactone 25 mg tablet 25 mg PO QDAY sertraline 50 mg tablet 50 mg PO QDAY potassium chloride 20 mEq tablet extended release 20 meq PO QDAY melatonin 3 mg capsule 3 mg PO QHS gabapentin 400 mg capsule 400 mg PO Q6H nitroglycerin 0.4 mg tablet, sublingual 0.4 mg buccal Q5M PRN (Reason: chest pain) sucralfate 1 gram tablet 1 g PO Q8H promethazine 25 mg tablet 25 mg PO PRN PRN (Reason: nausea and vomiting) hydrocodone-acetaminophen 5-325 mg tablet 1 tab PO [...] Galvan Referrals: Gabriel Galvan MD [Primary Care Provider, Internal Medicine] Print Language: [place] What to do if you have Problems For any increased pain, shortness of breath, bleeding, nausea or vomiting, chestpain, or any unexpected problems, contact your Primary Care Provider. Call [facility] ([phone]) or report to the closest Emergency Room. Call 911 if necessary. 05/26/25 0819 <Electronically signed by Ross Lou DO> Cosigner Signature (if applicable): CC: Dr. Gabriel Galvan MD ~ Signed [facility] Work Phone: 1(921) 998-306309-19-2025 Evaluation note* Diagnosis Onset Date Resolution Status Admit Date LV (left ventricular) mural thrombus acute May 26, 2025 9:32am Nonspecific chest pain acute Se ptember 2024 9:32am Essential hypertension chronic Se pt2024 9:32am Hyperlipidemia chronic May 26, 2025 9:32am NSTEMI, initial episode of care resolved May 26, 2025 9:32am Ischemic cardiomyopathy inactive S eptember 2024 9:32am [facility] Work Phone: 1(325) 596-649709-19-2025 Discharge summary [facility] Medical Records Department [address] [place] [address] Emergency Department Summary 05/26/25 MR#: [id number] Acct: [id number] Name: MARCIA MASCORRO Rep #:[id number] : 1955 69 From: Ross Lou DO PCP: Dr. Gabriel Galvan MD Status:RE G ER Location: ED ADDENDUM by Dr. Odell Dwyer DO on 05/26/25 at 0938 Patient was turned over to me by Dr. Lou@ 0830 Brief history: 69-year-old female presents with chest pain Physical exam: As below Labs and images reviewed (if obtained): Delta troponin was elevated, ruled in for hospitalization based on [facility] high-sensitivity troponin protocol Discussed with cardiology (Dr. Curtis) recommended heparin and admission. Also discussed with hospitalist (Dr. Russo) who agreed with admission to PCU. MDM/plan: No acute events under my care. Patient reported ongoing chest pain. She was given nitroglycerin andaspirin. Admit to PCU 05/26/25 0938 Cosigner Signature (if applicable): cc: Dr. Gabriel Galvan MD ~* Signed HPI History of Present Illness Chief Complaint: Chest Pain Informant: patient and EMS Narrative Narrative: Patient is a 69-year-old female with past medical history of COPD emphysema as well as hypertensionhyperlipidemia and ischemic cardiomyopathy. She presents with complaint of chest discomfort. She states that she awoke this morning roughly 1 hour prior to arrival and noticed some mid to left-sided chest pain that radiated towards her shoulder. She states there was no associated nausea vomiting diaphoresis or shortness of breath. She states that there has been no recent trauma or sick symptoms. She reports she is taking all of her home medication as directed but despite doing so has not had improvement of her symptoms. And secondary to this called EMS to be brought in for evaluation [facility] Medical History Chronic pain Kidney disease Asthma [...] reflux disease) Hyperlipidemia 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 Tobacco abuse [...] tablet 5 mg PO DAILY 09/28/2409/27 History polyethylene glycol 3350 17 17 g PO [...] PO QDAY #90 tabs 10/04 Unknown Rx clopidogrel 75 mg tablet 75 mg PO QDAY 01/13/25 Unkno wn History omeprazole 40 mg capsule,delayed 40 mg PO QDAY 5 Unknown History release potassium chloride 20 mEq 20 meq PO QDAY 01/13/25 Unkn own History tablet,extended release sertraline 50 mg tablet 50 mg PO QDAY 01/13/25 Unkno wn History spironolactone 25 mg tablet 25 mg PO QDAY 01/13/25 Unk nown History Allergy/AdvReac Type Severity Reaction Status Date / Time Iodinated Contrast Media Allergy SOB Verified 05/26/25 06:10 (iodine contrast) Family History Mother Hypertension CAD [...] ROS ROS ED Constitutional Constitutional ED: Denies chills or fever(s) Eyes Eyes: Denies change in vision ENT ENT ED: Denies rhinorrhea or sore throat Cardiovascular Cardiovascular: Reports chest pain; Denies palpitations or racing heartbeat Respiratory/Chest Respiratory/Chest: Reports cough and other Details: Patient reports cough is chronic in nature ; Denies dyspnea Gastrointestinal Gastrointestinal: Denies abdominal pain, diarrhea, nausea or vomiting Genitourinary Genitourinary ED: Denies dysuria Musculoskeletal Musculoskeletal: Denies myalgias Integumentary Denies rash Neurologic Neurologic: Denies headache(s) Psychiatric Psychiatric: Reports anxiety Hematologic/Lymphatic Hematologic/Lymphatic: Reports easy bleeding and easy bruising EXAM Physical Exam Const Vital Signs: 05/26/25 06:10 05/26/25 06:15 05/26/25 07:10 Temperature 98.0 F Temperature Source Oral Pulse Rate 76 72 Respiratory Rate 18 18 Respiratory Pattern Normal Blood Pressure 150/111 H 162/114 H Blood Pressure Mean 124 130 Pulse Ox 93 97 Oxygen Delivery Method Room Air Positive well nourished and well developed General Appearance ED: well developed HEENT HEENT Narrative: Normocephalic atraumatic Eyes PERRL and EOMs intact bilaterally General Eye ED: Negative for scleral icterus Neck supple and no JVD Chest Wall Chest Narrative: There is pain on palpation of the mid to left anterior chest wall without bony deformity or crepitance Resp normal respiratory effort Resp Narrative: Breath sounds are diminished throughout with faint rhonchi in the bilateral lower lobes and expiratory wheezing consistent with history of COPD/smoking However no signs of respiratory distress Cardio regular rate and regular rhythm Rate: other Other Details: Heart is regular rate and rhythm Radial and carotid pulses are equal and symmetric GI non-distended and no masses GI Narrative: Abdomen is soft and nondistended with hypoactive bowel sounds. There is mild pain on palpation along the umbilicus where patient has a ventral hernia that isreducible in nature No voluntary guarding or rigidity or pulsatile mass Auscultation: hypoactive bowel sounds Palpation: soft Extremity normal to inspection Extremity Narrative: No asymmetric edema of bilateral lower extremities Negative Homans' sign bilaterally +1 pitting edema to the bilateral lower extremities that is equal and symmetric Neuro oriented x3, CN's II-XII intact bilaterally and no sensory deficits noted Sensorium / Orientation: alert Psych Mood & Affect: anxious Skin no rashes or lesions noted and no wounds General Skin Exam: Negative for jaundice MDM MDM MDM Narrative Medical decision making narrative: Patient arrived to ER hypertensive but otherwise with stable vitals. She reported mid to left-sidedchest discomfort but no associated nausea vomiting diaphoresis shortness of breath. Chart review reveals she does have a history of ischemic cardiomyopathy. She was evaluated by cardiology in this year. She has a previous echo from 2022 showing a left ventricular thrombus as well as diminished ejection fraction of approximately 20 to 30%. The recommendation was continued medical management with repeat echocardiogram. Thepatient states she has never followed up to have that obtained. Her EKG was compared to multiple previous ones and is similar in nature without acute ischemic or dysrhythmia change. Also of note was the outpatient cardiology notestates that the patient is typically short of breath at rest and with exertion and also has chest discomfort almost daily. Therefore atthis time I feel her symptoms could be related to lung pathology such as pneumonia or congestive heart failure exacerbation or could in theory also be acute coronary syndrome asshe does have multiplerisk factors for CAD. I have low concern that her discomfort is from a PE as she is on Xarelto and the chest pain is not pleuriticand is also reproducible. There is also potential that this is her chronic chest discomfort. However in order to help differentiate between an acute exacerbation versus c hronic pain I did elect to perform basic laboratory studieswith an initial and delta troponin EKG. as stated above EKG revealed no ischemicchanges and is very similar to her previous. The initial troponin is 18 which is mildly elevated from a value of 11 obtained on December 20 of this year. Her proBNP is elevated but she has a known reduced ejection fraction and her pulse ox is normal on room air going against a CHF exacerbation. At this time the patient will require a delta troponin. I do feel that the value remains flat and the chance this being a acute coronary syndrome is low and her symptoms are most like related to her underlying chronic conditions of ischemic cardiomyopathy and CHF. At this time as the delta troponin and response to therapy is still pending the patient will be signed out to the day physician Dr. Dwyer History & Record Review Discussion w/independent historian: Patient Additional record(s) reviewed:: Prior outpatient record Lab Data Attestation: I reviewed the patient's lab results. Labs: Laboratory Results - last 24 hr 05/26/25 06:00 WBC 8.4 RBC 4.15 L Hgb 13.4 Hct 40.5 MCV 97.6 MCH 32.3 H MCHC 33.1 RDW Std Deviation 50.5 H RDW Coeff of Sariah 14.1 Plt Count 230 MPV 9.8 Immature Gran % (Auto) 0.200 Neut % (Auto) 31.2 L Lymph % (Auto) 55.8 H Rogers % (Auto) 8.8 Eos % (Auto) 3.1 Baso % (Auto) 0.9 Absolute Neuts (auto) 2.6 Absolute Lymphs (auto) 4.71 H Nucleated RBC % 0 Sodium 144 Potassium 4.2 Chloride 109 H Carbon Dioxide 26.6 Anion Gap 9 BUN 16 Creatinine 0.90 Estim Creat Clear Calc 57.50 Est GFR (MDRD) Non-Af 70 BUN/Creatinine Ratio 18.1 Glucose 122 H Calcium 9.2 Magnesium 2.2 Troponin T High Sens 18 H D NT pro BNP II 2936 H Radiography Diagnostic Testing: Clinical Impression(s) from Imaging Studies Chest X-Ray 05/26/25 06:48 IMPRESSION: Perihilar airspace opacities may represent CHF, pulmonary edema or pneumonia. Small pleural effusion. Reading Location: [facility] Chest x-ray as interpreted by emergency medicine physician reveals cardiomegaly with slight increased pulmonary vascular congestion consistent with CHF Discharge Plan Triage Chief Complaint: Chest Pain ED Provider: Ross Lou Dx/Rx/DC Orders Clinical Impression: Nonspecific chest pain, Ischemic cardiomyopathy, Essential hypertension Prescriptions: No Action Spiriva Respimat 2.5 mcg/actuation [...] Rx Instructions: must administer with a meal/food clopidogrel 75 mg tablet 75 mg PO QDAY omeprazole 40 mg capsule,delayed release(DR/EC) 40 mg PO QDAY spironolactone 25 mg tablet 25 mg PO QDAY sertraline 50 mg tablet 50 mg PO QDAY potassium chloride 20 mEq tablet extended release 20 meq PO QDAY melatonin 3 mg capsule 3 mg PO QHS gabapentin 400 mg capsule 400 mg PO Q6H nitroglycerin 0.4 mg tablet, sublingual 0.4 mg buccal Q5M PRN (Reason: chest pain) sucralfate 1 gram tablet 1 g PO Q8H promethazine 25 mg tablet 25 mg PO PRN PRN (Reason: nausea and vomiting) hydrocodone-acetaminophen 5-325 mg tablet 1 tab PO [...] Galvan Referrals: Gabriel Galvan MD [Primary Care Provider, Internal Medicine] Print Language: [place] What to do if you have Problems For any increased pain, shortness of breath, bleeding, nausea or vomiting, chestpain, or any unexpected problems, contact your Primary Care Provider. Call [facility] ([phone]) or report tothe closest Emergency Room. Call 911 if necessary. 05/26/25 08 Cosigner Signature (if applicable): CC: Dr. Gabriel Galvan MD ~ Signed [facility]09-19-2025 Radiology Diagnostic study note [facility] Imaging Services [address], [place] [address] Chest 1 View (Portable) MR#: [id number] Acct: [id number] Name: MARCIA MASCORRO Rep #: [id number] : [id number] F [id number] From: Benedicto Ambrosio MD PCP: Dr. Gabriel Galvan MD Status: RE G ER Study:Chest 1 View (Portable) Date of Exam: 05/26/25 Exam# [id number] Ordering Dr: Skylar Lou DO PROCEDURE: CHEST 1 VIEW (PORTABLE) 05/26/2025 REASON FOR EXAM: CHEST PAIN TECHNIQUE: Frontal view of the chest. COMPARISON: Chest x-ray 12/30/2024. FINDINGS: Hardware: Monitor electrodes overlie the chest. Heart: Mild cardiomegaly. Lungs: Perihilar airspace opacities may represent CHF, pulmonary edema or pneumonia. Obliteration of the right costophrenic angle consistent with small pleural effusion. No pneumothorax. Bones: No acute bony abnormalities. Soft tissues: No soft tissue abnormalities. RAD/Chest 1 View (Portable) IMPRESSION: Perihilar airspace opacities may represent CHF, pulmonary edema or pneumonia. Small pleural effusion. Reading Location: [facility] CC: Dr. Gabriel Galvan MD; Ross Lou DO ~ Corporate Tax Preparer: Signed [facility]09-16-2025 Telephone encounter Note* Telephone Encounter - Eduarda Rosario LPN - 05/23/2025 8:27 AM EDT Patient notified.Eduarda Rosario LPN [facility]09-16-2025 Telephone encounter Note* Telephone Encounter - Eduarda Rosario LPN - 05/23/2025 8:27 AM EDT ----- Message from Ryanne Negro APRN.PILOT CAPTAIN sent at 05/23/2025 8:17 AM EDT ----- ----- Message ----- From: Lab, Background User Sent: 05/22/2025 11:36 PM EDT To: [facility] Provider Pool [facility]09-16-2025 Miscellaneous Notes* Telephone Encounter - Eduarda Rosario LPN - 05/23/2025 8:27 AM EDT Patient notified.Eduarda Rosario LPN * Telephone Encounter - Eduarda Rosario LPN - 05/23/2025 8:27 AM EDT ----- Message from Ryanne Negro APRN.PILOT CAPTAIN sent at 05/23/2025 8:17 AM EDT ----- ----- Message ----- From: Lab, Background User Sent: 05/22/2025 11:36 PM EDT To: [facility] Provider Pool * Telephone Encounter - Ryanne Negro APRN.PILOT CAPTAIN - 05/23/2025 8:17 AM EDT Please call patient let her know she is negative for flu, COVID, RSV. Patient should continue supportive therapy and follow-up in 2 weeks if symptoms are not improving. documented in this encounterSt. [facility] Telephone encounter Note * Telephone Encounter - Ryanne Negro APRN.CNP - 05/23/2025 8:17 AM EDT Please call patient let her know she is negative for flu, COVID, RSV. Patient should continue supportive therapy and follow-up in 2 weeks if symptoms are not improving. [facility] Work Phone: [phone] 454-405709-15-2025 [id number] (AGENT OF COVID-19) RNA: Not detected INFLUENZA A RNA: Not detected INFLUENZA B RNA: Not detected RESPIRATORY SYNCYTIAL VIRUS (RSV) RNA: Not detectedCity HospitalComment on above:Performed By: #### [id number] ####[facility] LABCLIA [id number] [address]09-15-2025 NoteHNO ID: [id number] Author: RAJIV MUNOZ APRN.DONNA Service: ? Author Type: Nurse Practitioner Type: Progress Notes Filed: 05/22/2025 11:43 Note Text: [facility] GORANGRIFFIN Mascorro is a 69 year old female. [...] artery disease) - CHF (congestive heart failure) ([facility]) - Chronic back pain - Chronic pain low back, sees pain MGT: Dr. Nayak - Compression fracture of thoracic vertebra ([facility]) - COPD (chronic obstructive pulmonary disease) ([facility]) - Depression - Diabetes mellitus (HCC) - Diverticulosis - Essential hypertension, benign Sees Dr. Best - GERD (gastroesophageal reflux disease) - Hiatal hernia 06/24/2023 - Hyperthyroidism - Incontinence 07/07/2014 - LV (left ventricular) mural thrombus 12/01/2023 - Mixed hyperlipidemia - Obesity - Opioid dependence (HCC) 01/15/2020 In 180 as of 01/2020 per ER report from [facility]. - Palpitation - Primary cardiomyopathy (HCC) - Pulmonary emphysema (HCC) - Schatzki's ring 06/24/2023 - SVT (supraventricular tachycardia) (HCC) - Tremor PAST SURGICAL HISTORY Procedure Laterality Date - 2D ECHO (EXEP) 01/19/2017 EF=55%, mild LVH, LA enlargement, UT and TI, Diastolic dysfunction. - 2D ECHO (EXEP) 12/18/2017 EF=55%, mild LVH, mild diastolic dysfunct, - COLONOSCOPY SCREENING 04/16/2016 mac. repeat 10 yrs - EGD W/O [facility] SPEC VARICIES INJ 04/16/2016 v - EGD WITH BIOPSY(S) 07/28/2023 dilation of pylorus; Dr. Martinez - ERCP DUCT STENT PLACEMENT 07/28/2023 Dr. Martinez - F EGD WITH DILATATION 06/24/2023 Retana's-prominent low-grade dysphasia AND focal superficial high-grad dysplasia; hiatal hernia; Dr. Martinez - LAPAROSCOPIC CHOLECYSTECTOMY 12/09/2023 Dr. Tejada--MAX skelton post op - TOTAL ABDOMINAL HYSTERECT W/WO [...] by mouth once daily (more content not included)...[facility] History of Present illness Narrative* Rajiv Munoz APRN.PILOT CAPTAIN - 05/22/2025 11:41 AM EDT [facility] Subjective Marcia Mascorro is [...] interpretation: prominent low-grade dysphasia & focal superficial high- grad dysplasia Retana's esophagus without dysplasia 09/13/2019 Bile [...] as of 01/2020 per ER report from [facility]. Palpitation Primary cardiomyopathy (HCC) Pulmonary emphysema (HCC) Schatzki's ring 06/24/2023 SVT (supraventricular tachycardia) (HCC) Tremor PAST SURGICAL HISTORY Procedure Laterality Date 2D ECHO (EXEP) 01/19/2017 EF=55%, mild LVH, LA enlargement, UT and TI, Diastolic dysfunction. 2D ECHO (EXEP) 12/18/2017 EF=55%, mild LVH, mild diastolic dysfunct, COLONOSCOPY SCREENING 04/16/2016 mac. repeat 10 yrs EGD W/O [facility] SPEC VARICIES INJ 04/16/2016 v EGD WITH BIOPSY(S) 07/28/2023 dilation of pylorus; Dr. Martinez ERCP DUCT STENT PLACEMENT 07/28/2023 Dr. Martinez F EGD WITH DILATATION 06/24/2023 Retana's-prominent low-grade dysphasia & focal superficial high-grad dysplasia; hiatal hernia;Dr. Martinez LAPAROSCOPIC CHOLECYSTECTOMY 12/09/2023 Dr. Tejada--RUQ abcess [...] right-upper field reveals wheezing. Examination of the left-upperfield reveals wheezing. Examination of the right- lower field reveals rales. Wheezing and rales present. [...] Discussed expected course of illness Rajiv Munoz APRN.PILOT CAPTAIN and Recording using [employer] software for draft documentation of the visit was discussed with thepatient/authorized b2b outside sales representative; all questions welcomed and answered. Patient/authorized b2b outside sales representative agreed to proceed History and Record Review Clinical information obtained from an independent historian. History obtained from or confirmed by:family member. Management I performed an independent interpretation [...] No Drug use: No documented in this encounterSt. [facility] Instructions* Patient Instructions* Rajiv Munoz APRN.CNP - 05/22/2025 11:36 AM [...] - Your prescriptions have been sent to [facility] ([facility]). A printed copy will be provided for your records. - Schedule a follow-up appointment with your primary care provider to recheck the fluid on your lung. documented in this encounterSt. [facility] History of Present illness Narrative* Xuan Duffy RT(R) - 05/22/2025 11:10 AM EDT Radiology Service Progress Note PATIENT NAME: [...] Assigned female at . status: : No status:NO. PATIENT RELEVANT IMPLANT DATA REVIEWED: Yes PATIENT PRESENTS WITH AN IMPLANTABLE OR ATTACHED PROPERTY ADMINISTRATOR: No RADIOLOGY DEPARTMENT: General X-ray: Exam(s) Completed: Chest X-Ray PERIPHERAL IV DATA: Not applicable SIGNED BY: MARTÍN Reid) May 22, 2025 11:06 AM documented in this encounterSt. Mary'[facility]2025 NoteHNO ID: [id number] Author: XUAN DUFFY RT(R) Service: ? Author [...] PATIENT PRESENTS WITH AN IMPLANTABLE OR ATTACHED PROPERTY ADMINISTRATOR: No RADIOLOGY DEPARTMENT: General X-ray: Exam(s) Completed: Chest X-Ray PERIPHERAL IV DATA: Not applicable SIGNED BY: RT Jeanette(Alejandra) May 22, 2025 11:06 [facility]09-05-2025 Telephone encounter Note* Telephone Encounter - Lisa Lopez - 05/12/2025 10:07 AM EDT Prescription Refill Information The patient has been [...] Lisa Carranza May 12, 2025 10:[address] [facility]09-05-2025 Miscellaneous Notes* Telephone Encounter - Lisa Lopez - 05/12/2025 10:07 AM EDT Prescription Refill Information The patient has been [...] tablet by mouth daily at bedtime. Lisa Centeno [facility] May 12, 2025 10:08 AM documented in this encounterSt. Mary[facility]08-[facility]-2025 Telephone encounter Note * Telephone Encounter - Lyndsey Acevedo APRN.CNS - 04/17/2025 9:44 AM EDT Ok ordered liquid. If can not tolerate liquid may switch to capsule. [facility]08-11-2025 Miscellaneous Notes* Telephone Encounter - Lyndsey Acevedo APRN.CNS - 04/17/2025 9:44 AM EDT Ok ordered liquid. If can not tolerate liquid may switch to capsule. * Telephone Encounter - Rula Hernandez RN - 04/17/2025 9:34 AM EDT Call placed to [facility]. Patient has been taking potassium but sometimes refuses. Patient has difficulty swallowing the potassium pills and nursing staff asking if she could get the liquid form instead. Rula Hernandez RN * Telephone Encounter - Lyndsey Acevedo APRN.CNS - 04/13/2025 1:23 PM EDT Potassium was last refilled in February. Check to see if she has been taking it in March. This will help determine if she still is in need of supplemental potassium. Potassium March 28 at 4.6. * Telephone Encounter - Rula Hernandez RN - 04/13/2025 11:32 AM EDT [facility] with [employer] calls to request refill of potassium 20 mEq's daily at the request of [facility]. Medication is listed as historical but looks like we were ordering previously. Last OV: 03/28/2025 Next OV: 04/17/2025 Please review and advise, Rula Hernandez RN documented in this encounterSt. Mary'[facility]08-[facility]-2025 Telephone encounter Note * Telephone Encounter - Rula Hernandez RN - 04/17/2025 9:34 AM EDT Call placed to [facility]. Patient has been taking potassium but sometimes refuses. Patient has difficulty swallowing the potassium pills and nursing staff asking if she could get the liquid form instead. Rula Hernandez RN [facility]08-07-2025 Telephone encounter Note* Telephone Encounter - Lyndsey Acevedo APRN.CNS - 04/13/2025 1:23 PM EDT Potassium was last refilled in February. Check to see if she has been taking it in March. This will help determine if she still is in need of supplemental potassium. Potassium March [address] [facility]08-07-2025 Telephone encounter Note* Telephone Encounter - Rula Hernandez RN - 04/13/2025 11:32 AM EDT [facility] calls to request refill of potassium 20 mEq's daily at the request of [facility]. Medication is listed as historical but looks like we were ordering previously. Last OV: 03/28/2025 Next OV: 04/17/2025 Please review and advise, Rula Hernandez RN [facility]07-29-2025 Telephone encounter Note* Telephone Encounter - Kimi Pelayo MA - 04/04/2025 4:03 PM EDT Spoke with nurse at [facility] and script received and they will inform patient and give her antibiotic Kimi Pelayo MA [facility]07-29-2025 Miscellaneous Notes* Telephone Encounter - Kimi Pelayo MA - 04/04/2025 4:03 PM EDT Spoke with nurse at [facility] and script received and they will inform patient and give her antibiotic Kimi Pelayo MA * Telephone Encounter - Nora Crespo APRN.DONNA - 04/04/2025 12:42 PM EDT Urine culture results from [facility] shows e coli UTI. Infection is susceptible to Macrobid.Script sent to [facility] pharmacy. Please fax signed order to [facility]. documented in this encounterSt. Mary'[facility]07-[facility]-2025 Telephone encounter Note * Telephone Encounter - Nora Crespo APRN.CNP - 04/04/2025 12:42 PM EDT Urine culture results from [facility] shows e coli UTI. Infection is susceptible to Macrobid.Script sent to [facility] pharmacy. Please fax signed order to [facility]. [facility]07-22-2025 Note* Addendum Note - Nora Crespo APRN.CNP - 03/28/2025 3:00 PM EDTAddended by: NORA CRESPO on: 03/28/2025 03:00 PM Modules accepted: Orders [facility]07-22-2025 Miscellaneous Notes* Addendum Note - Nora Crespo APRN.CNP - 03/28/2025 3:00 PM EDTAddended by: NORA CRESPO on: 03/28/2025 03:00 PM Modules accepted: Orders documented in this encounterSt. Mary'[facility]07-[facility]-20[facility] Telephone encounter Note * Telephone Encounter - Peyton Lindo MA - 03/28/2025 1:49 PM EDT [phone] [facility]07-22-2025 Miscellaneous Notes* Telephone Encounter - Peyton Lindo MA - 03/28/2025 1:49 PM EDT [facility] [phone] Peyton Lindo MA * Telephone Encounter - Nora Crespo APRN.CNP - 03/28/2025 12:52 PM EDT Can we please send the med list from patient's visit today to [facility]? Please call and let them know that I went through and compared their med list with ours and the one we have should be her current medications (including changes made today). Please let them know that we did not have Zoloft (sertraline) on our list. This can be discontinued, we increased her Cymbalta and added Remerontoday. We also sent a script for ketoconazole shampoo and we will prescribe her Ativan since palliative has changed its policy and will no longer prescribe this for her. documented in this encounterSt. Mary'[facility]07[facility] Telephone encounter Note * Telephone Encounter - Nora Crespo APRN.CNP - 03/28/2025 12:52 PM EDT Can we please send the med list from patient's visit today to [facility]? Please call and let them know that I went through and compared their med list with ours and the one we have should be her current medications (including changes made today). Please let them know that we did not have Zoloft (sertraline) on our list. This can be discontinued, we increased her Cymbalta and added Remerontoday. We also sent a script for ketoconazole shampoo and we will prescribe her Ativan since [facility] has changed its policy and will no longer prescribe this for her. [facility]07-22-2025 Instructions* Patient Instructions* Nora Crespo APRN.CNP - 03/28/2025 11:50 AM [...] as need for anxiety. documented in this encounterSt. Mary'[facility]07-[facility]-2025 NoteHNO ID: [id number] Author: NORA CRESPO APRN.CNP Service: ? Author [...] and is under the care of a structural steel painter. She is taking multiple medications, including [...] 08/21/2016 (A priorit (more content not included)... [facility] History of Present illness Narrative* Nora Crespo APRN.[facility] - 03/28/2025 11:21 AM EDT SUBJECTIVE Marcia Mascorro is a 69 year [...] as concerns about recent discontinuation of Ativan. Marcai reports a 2-day history of intense scalp pruritus and the appearance of black spots on herscalp. She describes her scalp as very dry and notes that the pruritus is severe enough to cause significant discomfort. She has been picking at her scalp and hair, which is unusual behavior for her. She denies seeing any lice or other visible parasites. Marcia also reports feeling crazy and not like herself since her Ativan was discontinued 3 daysago. She has been on Ativan for a long time to manage her anxiety and has not taken any doses in the last 3 days. She denies any withdrawal symptoms such as tremors, seizures, or hallucinations, but feels more anxious and stressed than usual. She has a history of chronic pain and is under the care of a structural steel painter. She is taking multiple medications, including Phenergan for nausea, which she finds effective. She uses oxygenat home at 3 liters per minute and reports no issues with her breathing. She also takes water pillsand uses Milk of Magnesia for constipation, which [...] - 12/20/2023 Copd (Chronic Obstructive Pulmonary Disease) ([facility]) - 12/20/2023 Chronic Combined Systolic and Diastolic Chf (Congestive Heart Failure) ([facility]) - 12/20/2023 Coronary Artery Disease Due to Lipid Rich Plaque - 12/13/2023 Pulmonary Emphysema ([facility]) - 12/13/2023 Obesity, Class I, Bmi 30-34.9 - 12/11/2023 Choledocholithiasis - 12/07/2023 Chronic Back Pain - 12/07/2023 Compression Fracture of Thoracic Vertebra ([facility]) - 12/01/2023 Diabetes Mellitus ([facility]) - 01/13/2023 Cardiomyopathy in Disease Classified Elsewhere ([facility]) - 01/13/2023 Supraventricular Tachycardia ([facility]) - 01/13/2023 Oab (Overactive Bladder) - 02/18/2019 [...] anxiety. - Referral to behavioral health social media intern for additional support and resources. 3. Neuropathy [...] which included preparing to see the patient, [id number] patient care, completing clinical documentation, obtaining and/or reviewing separately obtained history, performing a medically appropriate examination, counseling and educating the pat ient/family/caregiver, ordering medications, tests, or procedures, independently interpreting [...] about 1 week (around 04/04/2025) for recheck. Nora Crespo APRN-DONNA documented in this encounterSt. Mary'[facility]07[facility] Telephone encounter Note * Telephone Encounter - Marty Beebe RN - 03/13/2025 3:45 PM EDT Spoke with patient regarding the following information: Procedure is scheduled for ThursdayMarch 20 at 7:30am. Please arrive by 6:30am to check in at the endoscopy unit. Gastroenterology is located at desk Q31 in the [facility] ([facility]/[address] [place] [address]). Park in the [facility] [address] Parkin Garage or use [facility]. Visit [email or web address] for up-to-date visitor restrictions and mask requirements. Construction alerts and updates are available online at [email or web address] You will be receiving IV (intravenous) sedation. Your ride MUST be present upon arrival to and MUST remain on the [facility] [place] for the duration of the procedure or your procedure will be cancelled. You MUST have a responsible person come with you and either drive you home or be with you while riding in public transportation (bus or taxi). You are NOT allowed to drive or leave the Endoscopy Center alone. Your procedure will be cancelled if your ride cannot be confirmed. Publictransportation by yourself is not allowed. Most procedures take approximately 45-60 minutes. You and your responsible person must remain in the Endoscopy Center and be reachable by phone until you recover from your sedation. Most patients aredischarged 1-2 hours after the procedure is completed. If you are taking Coumadin (Warfarin), Clopidogrel (Plavix), Aspirin, Ticlid, Aggrenox or other blood thinners, you must speak with your prescribing physician or the specialist performing the Endoscopy procedure at least 2 weeks PRIOR to your scheduled appointment. If you are taking Insulin , long-acting Insulin (NPH), Lantus, Humalog, 70/30 Insulin, or any othermedication to lower your blood sugar, contact your [...] Endoscopy procedure, please call , option 1. [facility]07-07-2025 Miscellaneous Notes* Telephone Encounter - Marty Beebe RN - 03/13/2025 3:45 PM EDT Spoke with patient regarding the following information: Procedure is scheduled for ThursdayMarch 20 at 7:30am. Please arrive by 6:30am to check in at the Q3 endoscopy unit. Gastroenterology is located at desk Q31 in the [facility] ([facility]/[address] [place] [address]). Park in the [address] or use [facility] Parking. Visit [email or web address] for up-to-date visitor restrictions and mask requirements. Construction alerts and updates are available online at [email or web address] You will be receiving IV (intravenous) sedation. Your ride MUST be present upon arrival to and MUST remain on the [facility] Main [place] for the duration of the procedure or your procedure will be cancelled. You MUST have a responsible person come with you and either drive you home or be with you while riding in public transportation (bus or taxi). You are NOT allowed to drive or leave the [facility] alone. Your procedure will be cancelled if your ride cannot be confirmed. Publictransportation by yourself is not allowed. Most procedures take approximately 45-60 minutes. You and your responsible person must remain in the [facility]oscopy Center and be reachable by phone until you recover from your sedation. Most patients aredischarged 1-2 hours after the procedure is completed. If you are taking Coumadin (Warfarin), Clopidogrel (Plavix), Aspirin, Ticlid, Aggrenox or other blood thinners, you must speak with your prescribing physician or the specialist performing the Endoscopy procedure at least 2 weeks PRIOR to your scheduled appointment. If you are taking Insulin , long-acting Insulin (NPH), Lantus, Humalog, 70/30 Insulin, or any othermedication to lower your blood sugar, contact your [...] call , option 1. documented in this encounterSt. [facility] Telephone encounter Note * Telephone Encounter - Elizabeth Kelly - 03/13/2025 8:26 AM EDT Lvm for pt to c/b and confirm the new date/time works. Will send MC message as well [facility]07-07-2025 Miscellaneous Notes* Telephone Encounter - Elizabeth Kelly - 03/13/2025 8:26 AM EDT Lvm for pt to c/b and confirm the new date/time works. Will send MC message as well documented in this encounterSt. Mary'[facility]06-[facility] History and physical note * Grace Chaudhary MD, PhD - 02/09/2025 3:07 PM EDT Images from the original note [...] prior to repair. Grace Chaudhary MD PhD [facility] armature winder repair helper CCLCM of [facility] Bariatric, Foregut, and Flexible Endoscopic Surgery [facility] [address] [place] [address] GENERAL SURGERY INITIAL CONSULT NOTE SERVICE DATE: 02/09/2025 SERVICE TIME: 4:01 PM REASON FOR CONSULT: Hiatal Hernia REQUESTING PHYSICIAN: Christoph PRIMARY CARE PHYSICIAN: Gabriel Galvan MD Subjective Ms. Mascorro is a 69 year old female with PMHx of CAD, CHF (EF 20%), HTN, GERD, COPD, Diabetes, Retana's esophagus, who presents with abdominal pain, nausea and weight loss. Last seen with Dr. Orr in 06/2024 for hiatal hernia. Was recommended [...] interpretation: prominent low-grade dysphasia & focal superficial high- grad dysplasia Retana's esophagus without dysplasia 09/13/2019 Bile [...] as of 01/2020 per ER report from [facility]. Palpitation Primary cardiomyopathy (HCC) Pulmonary emphysema (HCC) Schatzki's ring 06/24/2023 SVT (supraventricular tachycardia) (HCC) Tremor PAST SURGICAL HISTORY Procedure Laterality Date 2D ECHO (EXEP) 01/19/2017 EF=55%, mild LVH, LA enlargement, UT and TI, Diastolic dysfunction. 2D ECHO (EXEP) 12/18/2017 EF=55%, mild LVH, mild diastolic dysfunct, COLONOSCOPY SCREENING 04/16/2016 mac. repeat 10 yrs EGD W/O [facility] SPEC VARICIES INJ 04/16/2016 v EGD WITH BIOPSY(S) 07/28/2023 dilation of pylorus; Dr. Martinez ERCP DUCT STENT PLACEMENT 07/28/2023 Dr. Martinez F EGD WITH DILATATION 06/24/2023 Retana's-prominent low-grade dysphasia & focal superficial high-grad dysplasia; hiatal hernia;Dr. Martinez LAPAROSCOPIC CHOLECYSTECTOMY 12/09/2023 Dr. Tejada TOTAL [...] plan surgical repair Grace Chaudhary MD PhD [facility] armature winder repair helper [facility] Bariatric, Foregut, and Flexible Endoscopic Surgery [facility] [address] [place] [address] [facility]06-05-[facility]25 History and physical note* Grace Chaudhary MD, PhD - 02/09/2025 3:07 PM EDT Images from the original note [...] prior to repair. Grace Chaudhary MD PhD [facility] armature winder repair helper [facility] Bariatric, Foregut, and Flexible Endoscopic Surgery [facility] [address] [place] [address] GENERAL SURGERY INITIAL CONSULT NOTE SERVICE DATE: 02/09/2025 SERVICE TIME: 4:01 PM REASON FOR CONSULT: Hiatal Hernia REQUESTING PHYSICIAN: Self PRIMARY CARE PHYSICIAN: Gabriel Galvan MD Subjective Ms. Mascorro is a 69 year old female with PMHx of CAD, CHF (EF 20%), HTN, GERD, COPD, Diabetes, Retana's esophagus, who presents with abdominal pain, nausea and weight loss. Last seen with Dr. Orr in 06/2024 for hiatal hernia. Was recommended [...] interpretation: prominent low-grade dysphasia & focal superficial high- grad dysplasia Retana's esophagus without dysplasia 09/13/2019 Bile [...] as of 01/2020 per ER report from [facility]. Palpitation Primary cardiomyopathy (HCC) Pulmonary emphysema (HCC) Schatzki's ring 06/24/2023 SVT (supraventricular tachycardia) (HCC) Tremor PAST SURGICAL HISTORY Procedure Laterality Date 2D ECHO (EXEP) 01/19/2017 EF=55%, mild LVH, LA enlargement, UT and TI, Diastolic dysfunction. 2D ECHO (EXEP) 12/18/2017 EF=55%, mild LVH, mild diastolic dysfunct, COLONOSCOPY SCREENING 04/16/2016 mac. repeat 10 yrs EGD W/O [facility] SPEC VARICIES INJ 04/16/2016 v EGD WITH BIOPSY(S) 07/28/2023 dilation of pylorus; Dr. Martinez ERCP DUCT STENT PLACEMENT 07/28/2023 Dr. Martinez F EGD WITH DILATATION 06/24/2023 Retana's-prominent low-grade dysphasia & focal superficial high-grad dysplasia; hiatal hernia;Dr. Martinez LAPAROSCOPIC CHOLECYSTECTOMY 12/09/2023 Dr. Tejada TOTAL [...] plan surgical repair Grace Chaudhary MD PhD [facility] armature winder repair helper CCLCM of [facility] Bariatric, Foregut, and Flexible Endoscopic Surgery [facility] [address] [place] [address] documented in this encounterSt. Mary'[facility]05-[facility] Telephone encounter Note * Telephone Encounter - Marisa Mcdermott LPN - 01/24/2025 10:43 AM EDT 2nd message left asking Regina to return call and speak with a nurse. [facility]05-20-[facility]25 Miscellaneous Notes* Telephone Encounter - Marisa Mcdermott LPN - 01/24/2025 10:43 AM EDT 2nd message left asking Regina to return call and speak with a nurse. * Telephone Encounter - Edilia Paige, WENDY - 01/21/2025 9:34 AM EDT Called and left a voicemail for Regina APRON MAN with Palliative Care to call back and ask for a nurse to receive the providers message. Edilia Paige, RN * Telephone Encounter - Gabriel Galvan MD - 01/20/2025 6:22 PM EDT Below noted. Reviewed records on Epic on lorazepam. Patient [facility] before according to a medlist entry 12/13/2023. We gave one short term refill when was in transition from PSYCHIATRIC to [facility]. She should get this med from psych provider as noted--would hope she can get an appointment soon sowould be able to get anxiety treated whether staying on lorazepam or other med adjustments. Will Palliative Care be helping patient get established with a provider? Or do we need to help with that? * Telephone Encounter - Edilia Paige RN - 01/20/2025 1:54 PM EDT Regina APRON MAN with Palliative Care called and is notified [...] know to try and get in with [facility] or [facility]. She said she just wanted to let the providers office know that the Pt may be upset and try to call in about the medication. Edilia Paige RN * Telephone Encounter - Edilia Paige RN - 01/19/2025 3:13 PM EDT Called and left a voicemail for Regina APRON MAN with Palliative Care to call back and ask for a nurse to receive the providers message. Edilia Paige RN * Telephone Encounter - Gabriel Galvan MD - 01/19/2025 2:46 PM EDT With that history, I would not prescribe the lorazepam 1 mg TID routinely for someone who has history of possibly diverting medication. Filed the consult order but not sure whether patient would come plus not sure we have anyone [place] who [place] to manage lorazepam if indicated. Would palliative care taper the RX or change it so not being given TID given question of diversion and not sure when can be seen by psych to take over management of med? Have they checked urine tox screen at Assisted Living? * Telephone Encounter - Rula Hernandez RN - 01/12/2025 3:13 PM EDT Regina with Palliative Care calls to notify [...] AL do not feel that patient is eventaking the medication as prescribed. She refuses to swallow the pills in front of staff and if the pill accidentally breaks patient demands that they give her another pill that is whole. Regina reports that nursing staff believes patient is pocketing the pills and giving them to her son when he come s to visit. Pended referral to psych. Needs diagnosis. Call back to notify Cadis of provider response is [phone]. Rula Hernandez RN documented in this encounterSt. Mary'[facility]05-[facility]-2025 Telephone encounter Note * Telephone Encounter - Edilia Paige RN - 01/21/2025 9:34 AM EDT Called and left a voicemail for Regina APRON MAN with Palliative Care to call back and ask for a nurse to receive the providers message. Edilia Paige RN [facility]05-16-2025 Telephone encounter Note* Telephone Encounter - Gabriel Galvan MD - 01/20/2025 6:22 PM EDT Below noted. Reviewed records on Epic on lorazepam. Patient had [facility] at [facility] before according to a medlist entry 12/13/2023. We gave one short term refill when was in transition from PSYCHIATRIC to [facility]. She should get this med from psych provider as noted--would hope she can get an appointment soon sowould be able to get anxiety treated whether staying on lorazepam or other med adjustments. Will Palliative Care be helping patient get established with a provider? Or do we need to help with that? [facility]05-16-2025 NoteHNO ID: [id number] Author: SCOT YORK MA Service: ? Author Type: Steel Unloader Type: Progress Notes Filed: 01/20/2025 15:12 Note [...] Scot York MA January 20, 2025 3:08 [facility]05-16-2025 History of Present illness Narrative* Scot York MA - 01/20/2025 3:08 PM EDT POPULATION HEALTH NAVIGATION OUTREACH Action/FYI [...] 20, 2025 3:08 PM documented in this encounterSt. Mary'[facility]05-[facility]-2025 Telephone encounter Note * Telephone Encounter - Edilia Paige RN - 01/20/2025 1:54 PM EDT Regina APRON MAN with Palliative Care called and is notified [...] know to try and get in with [facility] or [facility]. She said she just wanted to let the providers office know that the Pt may be upset and try to call in about the medication. Edilia Paige RN [facility]05-16-2025 NoteHNO ID: [id number] Author: LO PORTER LPCC Service: ? Author Type: Counselor Type: Progress Notes Filed: 01/20/2025 10:15 Note Text: Behavioral Health Social Work Progress Note Patient identified for [facility] from: PCP Reason for referral: Resources Behavioral Health Resources: Psychiatry med management [facility] encounter type: MyChart Message Attempts to Outreach: 1 attempt Referral made: Psychiatry - External Psychiatry-External referral type: Medication Management Reason for external referral: Patient seeking penitentiary support, Patient choice Final Disposition: Resources given Patient Discharged?: No Patient reported that caregiver was able to meet their needs today?: N/A therapist sent patient delicioushart message with a list of providers for psychiatric care. Will follow up in 1 week to determine if she needs additional resources. JOSE Gipson-S January 20[facility]05[facility] History of Present illness Narrative* Lo Porter LPCC - 01/20/2025 10:14 AM EDT Behavioral Health Social Work Progress Note Patient identified for [facility] from: PCP Reason for referral: Resources Behavioral Health Resources: Psychiatry med management [facility] encounter type: MyChart Message Attempts to Outreach: 1 attempt Referral made: Psychiatry - External Psychiatry-External referral type: Medication Management Reason for external referral: Patient seeking termite treater support, Patient choice Final Disposition: Resources given Patient Discharged?: No Patient reported that caregiver was able to meet their needs today?: N/A therapist sent patient delicioushart message with a list of providers for psychiatric care. Will follow up in 1 week to determine if she needs additional resources. JOSE Gipson-S January 20, 2025 documented in this encounterSt. Mary'[facility]05-[facility]-2025 NotePatient Outreach (NETNAV) MARCIA MASCORRO ([id number]) 1955 F T Date Time Provider Department 01/20/25 SCOT YOKR During your visit today, we recorded the [...] Date Reviewed: 01/03/2025 Reviewed by: Lyndsey Acevedo APRN.CYCLE CONSULTANT - Fully Assessed Reason for Visit: Population Health Navigation Outreach [3910] Cmt: Yang mckeonrejimarianne zimmer Prescriptions as of 01/24/2025 - DULoxetine [...] 08/21/2016 Near syncope [R55] (more content not included)...[facility]05-15-2025 Telephone encounter Note* Telephone Encounter - Edilia Paige RN - 01/19/2025 3:13 PM EDT Called and left a voicemail for Regina APRON MAN with Palliative Care to call back and ask for a nurse to receive the providers message. Edilia Paige RN [facility]05-15-2025 Telephone encounter Note* Telephone Encounter - Gabriel Galvan MD - 01/19/2025 2:46 PM EDT With that history, I would not prescribe the lorazepam 1 mg TID routinely for someone who has history of possibly diverting medication. Filed the consult order but not sure whether patient would come plus not sure we have anyone [place] who would see her to manage lorazepam if indicated. Would palliative care taper the RX or change it so not being given TID given question of diversion and not sure when can be seen by psych to take over management of med? Have they checked urine tox screen at Assisted Living? [facility]05-14-2025 Telephone encounter Note* Telephone Encounter - Helen Kearney RN - 01/18/2025 12:58 PM EDT [facility] SPECIALTY CARE COORDINATION TELEPHONE ENCOUNTER Chief complaint & duration symptomatic HH. Pt was referred to Dr Mcduffie, but is feeling very sick.. sooner opening with Dr Chaudhary next week. Pt agreed. Nursing assessment (subjective/objective) . Pt with moderate to large HH and causing her several symptom such as abd pain, nausea and unable toeat Pt was seen last year for the same reason but does not remember Complex medical history Has not had recent testing GI is Dr Martinez who performed her last endoscopy will contact that office. CT 03/2024 was done and showed large HH Recommendation: Request sent to scheduling for an appt with Dr Chaudhary [facility]05-14-2025 Miscellaneous Notes* Telephone Encounter - Helen Kearney RN - 01/18/2025 12:58 PM EDT [facility] SPECIALTY CARE COORDINATION TELEPHONE ENCOUNTER Chief complaint & duration symptomatic HH. Pt was referred to Dr Mcduffie, but is feeling very sick.. sooner opening with Dr Chaudhary next week. Pt agreed. Nursing assessment (subjective/objective) . Pt with moderate to large HH and causing her several symptom such as abd pain, nausea and unable toeat Pt was seen last year for the same reason but does not remember Complex medical history Has not had recent testing GI is Dr Martinez who performed her last endoscopy will contact that office. CT 03/2024 was done and showed large HH Recommendation: Request sent to scheduling for an appt with Dr Chaudhary documented in this encounterSt. Mary'[facility] Telephone encounter Note * Telephone Encounter - Helen Kearney RN - 01/18/2025 10:47 AM EDT [facility] SPECIALTY CARE COORDINATION TELEPHONE ENCOUNTER Pt very sickly and high risk pt referred to Dr Mcduffie for a HH repair by local GI Dr Tejada. Unable to reach pt but large HH seen on a CT scan from 03/2024. Will wait for pt or family to return call toobtain symptoms and medical history. LVM and contact info. [facility]05-14-2025 Miscellaneous Notes* Telephone Encounter - Helen Kearney RN - 01/18/2025 10:47 AM EDT BMI SPECIALTY CARE COORDINATION TELEPHONE ENCOUNTER Pt very sickly and high risk pt referred to Dr Mcduffie for a HH repair by local GI Dr Tejada. Unable to reach pt but large HH seen on a CT scan from 03/2024. Will wait for pt or family to return call toobtain symptoms and medical history. LVM and contact info. documented in this encounterSt. Mary'[facility]05-[facility] Telephone encounter Note * Telephone Encounter - Penny Medina - 01/18/2025 9:10 AM EDT [phone] Chloe called from the facility where the patient resides. Chloe is trying to get patient in for a hiatal hernia referral from Dr. Tejada under sctive request. Penny [facility]05-14-2025 Miscellaneous Notes* Telephone Encounter - Penny Medina - 01/18/2025 9:10 AM EDT [phone] Chloe called from the facility where the patient resides. Chloe is trying to get patient in for a hiatal hernia referral from Dr. Tejada under sctive request. Penny documented in this encounterSt. Mary'[facility]05-[facility]25 Telephone encounter Note * Telephone Encounter - Avelina Blount LPN - 01/17/2025 9:58 AM EDT Daughter contacted to see if we could get patient rescheduled for a hospital f/u but she states that she is not doing very well right now and that Dr. Malik is trying to get her worked in so doesn't want to schedule anything until that has been scheduled. [facility]05-13-2025 Miscellaneous Notes* Telephone Encounter - Avelina Blount LPN - 01/17/2025 9:58 AM EDT Daughter contacted to see if we could get patient rescheduled for a hospital f/u but she states that she is not doing very well right now and that Dr. Malik is trying to get her worked in so doesn't want to schedule anything until that has been scheduled. documented in this encounterSt. Mary'[facility]05-[facility] Telephone encounter Note * Telephone Encounter - Rula Hernandez, WENDY - 01/12/2025 3:13 PM EDT Regina with Palliative Care calls to notify [...] AL do not feel that patient is eventaking the medication as prescribed. She refuses to swallow the pills in front of staff and if the pill accidentally breaks patient demands that they give her another pill that is whole. Regina reports that nursing staff believes patient is pocketing the pills and giving them to her son when he come s to visit. Pended referral to psych. Needs diagnosis. Call back to notify Cadis of provider response is [phone]. Rula Hernandez, RN [facility]05-08-2025 Telephone encounter Note* Telephone Encounter - Avelina Blount LPN - 01/12/2025 10:29 AM EDT Spoke with Ezra Chambers and they stated that form is just her annual update for the chart. They just need last office note faxed with form. Patient has an appointment with Dr. Galvan on 01/16/25 and would prefer this office note but if patient no shows can send Lyndsey LOCKWOOD last office note. Form is at Dr Galvan nurse desk [facility]05-08-2025 Miscellaneous Notes* Telephone Encounter - Avelina Blount LPN - 01/12/2025 10:29 AM EDT [facility] and they stated that form is just her annual update for the chart. They just need last office note faxed with form. Patient has an appointment with Dr. Galvan on 01/16/25 and would prefer this office note but if patient no shows can send Lyndsey LOCKWOOD last office note. Form is at Dr Galvan nurse desk * Telephone Encounter - Lyndsey Acevedo APRN.CNS - 01/10/2025 3:40 PM EDT I have a [facility] on my desk. Is she currently continuing to reside there? Do they need the last office note? Did not discuss at her recent visit, not sure why I have the form. documented in this encounterSt. Mary'[facility]05-[facility] Telephone encounter Note * Telephone Encounter - Linh Egan - 01/12/2025 10:16 AM EDT Left message for patient's daughter, Marleny, to call back to PCP office to schedule consult. When she calls, please schedule surgical consult for hiatal hernia and schedule with EITHER Dr. Mcduffie or Dr. Parry per results note. [facility]05-08-2025 Miscellaneous Notes* Telephone Encounter - Linh Egan - 01/12/2025 10:16 AM EDT Left message for patient's daughter, Marleny, to call back to PCP office to schedule consult. When she calls, please schedule surgical consult for hiatal hernia and schedule with EITHER Dr. Mcduffie or Dr. Parry per results note. * Result Encounter Note - Lyndsey Acevedo APRN.CNS - 01/06/2025 11:13 AM EDT Culture shows normal yasmani. Needs appt with Dr. Mcduffie scheduled. documented in this encounterSt. Mary'[facility]05[facility] Note* Addendum Note - Kim Kennedy MA - 01/11/2025 2:59 PM EDTAddended by: KIM KENNEDY on: 01/11/2025 02:59 PM Modules accepted: Orders [facility]05-07-2025 Miscellaneous Notes* Addendum Note - Kim Kennedy MA - 01/11/2025 2:59 PM EDTAddended by: KIM KENNEDY on: 01/11/2025 02:59 PM Modules accepted: Orders documented in this encounterSt. Mary'S [facility]-2025 NoteHNO ID: [id number] Author: KIM KENNEDY MA Service: ? Author Type: Steel Unloader Type: Progress Notes Filed: 01/11/2025 14:58 Note Text: POPULATION HEALTH NAVIGATION OUTREACH Action/I Navigation to schedule a sooner 01/10/2025 [place] [facility] PCP follow-up appointment. Due for: ED [...] pended orders: [facility] - ED follow up 01/25/2025 in [facility] with RACHELLE MARCELO - Retana's esophagus without dysplasia [K22.70] [facility] - Chronic obstructive pulmonary disease, unspecified COPD type (HCC) [J44.9], Hypoxia [R09.02] 02/09[facility]20[facility] - Chronic obstructive pulmonary disease, unspecified COPD type (HCC) [J44.9], Hypoxia [R09.02] 02/09/2025 in [facility] with PEYTON TORRES - Chronic obstructive pulmonary disease, unspecified COPD type (HCC) [J44.9], Hypoxia [R09.02] 04/17/2025 in [facility] with GABRIEL GALVAN - 3 month follow up, HM: AWV, Mammo, Eye exam, KED, HCC Gap Closure Navigation Signature: Kim Kennedy MA January 11, 2025 2:[facility] History of Present illness Narrative* Kim Kennedy MA - 01/11/2025 2:46 PM EDT POPULATION HEALTH NAVIGATION OUTREACH Action/ Navigation to schedule a sooner 01/10/2025 [facility] PCP follow-up appointment. Due for: ED [...] pended orders: ER Follow-up KED 01/16/2025 in [facility] with GABRIEL GALVAN - ED follow up 01/25/2025 in [facility] with RACHELLE MARCELO - Retana's esophagus without dysplasia [K22.70] 02/09[facility]20[facility] - Chronic obstructive pulmonary disease, unspecified COPD type (HCC) [J44.9], Hypoxia [R09.02] 02/09/2025 [facility] - Chronic obstructive pulmonary disease, unspecified COPD type (HCC) [J44.9], Hypoxia [R09.02] [facility] - Chronic obstructive pulmonary disease, unspecified COPD type (HCC) [J44.9], Hypoxia [R09.02] [facility] - 3 month follow up, HM: AWV, Mammo, Eye exam, KED, HCC Gap Closure Navigation Signature: Kim Kennedy MA January 11, 2025 2:46 PM * Blayne Moya RN - 01/11/2025 1:23 PM EDTSummary: Chart review per payor request [facility] MANUELA RN Patient identified by name and [...] 05/2024 ED DIAGNOSES/REASON(S) FOR ED USE: 01/10/2025 [facility] for abdominal pain OTHER FINDINGS/SUMMARY: Labs, urine, previous work up per ED note on 12/31/[address] scan/chest xray. Morphine 4 mg given in ER once for pain. No imaging at this visit. Patient Attributed To: STACIE Payer: Yang DIOR Action Taken: Referrals/Routed: Population Health Navigation: Appointment. Router to [facility] [[id number]] Contact made with patient: No, Chart review only. Signature: Blayne Moya RN documented in this encounterSt. [facility]25 NoteHNO ID: [id number] Author: BLAYNE MOYA RN Service: ? Author [...] Network Navigation to schedule a sooner 01/10/2025 [place] [facility] PCP follow-up appointment. Thank you! Utilization in past 12 months # Occurrences Date Last Occurrence Hospital Admission 1 09/28/2024 Hospital Observation 0 0 ED 6 01/10/2025 SNF / Acute Rehab / LTAC 1 05/2024 ED DIAGNOSES/REASON(S) FOR ED USE: 01/10/2025 [facility] for abdominal pain OTHER FINDINGS/SUMMARY: Labs, urine, previous work up per ED note on 12/31/[address] scan/chest xray. Morphine 4 mg given in ER once for pain. No imaging at this visit. Patient Attributed To: QAE Payer: Yang DIOR Action Taken: Referrals/Routed: Population Health Navigation: Appointment. Router to [facility] [[id number]] Contact made with patient: No, Chart review only. Signature: [facility] NotePatient Outreach ([facility] MARCIA MASCORRO ([id number]) 1955 F [facility] Date Time Provider Department 01/11/25 BLAYNE MOYA [facility] During your visit today, we recorded the [...] Network Navigation to schedule a sooner 01/10/2025 [facility] PCP follow-up appointment. Thank you! Utilization in past 12 months # Occurrences Date Last Occurrence Hospital Admission 1 09/28/2024 Hospital Observation 0 0 ED 6 01/10/2025 SNF / Acute Rehab / LTAC 1 05/2024 ED DIAGNOSES/REASON(S) FOR ED USE: 01/10/2025 [facility] for abdominal pain OTHER FINDINGS/SUMMARY: Labs, urine, previous work up per ED note on 12/31/[address] scan/chest xray. Morphine 4 mg given in ER once for pain. No imaging at this visit. Patient Attributed To: QAE Payer: Yang DIOR Action Taken: Referrals/Routed: Population Health Navigation: Appointment. Router to [facility] [[id number]] Contact made with patient: No, Chart review only. Signature: Blayne Moya RN Kim Kennedy MA 01/11/2025 2:58 PM Signed POPULATION HEALTH [...] pended orders: ER [facility] - ED follow up 01/25/2025 in [facility] with MARCELO BUSH - Retana's esophagus without dysplasia [K22.70] [facility] - Chronic obstructive pulmonary disease, unspecified COPD type (HCC) [J44.9], Hypoxia [R09.02] 02/09/20[facility] - Chronic obstructive pulmonary disease, unspecified COPD type (HCC) [J44.9], Hypoxia [R09.02] 02/09/2025 in [facility] with PEYTON TORRES - Chronic obstructive pulmonary disease, unspecified COPD type (HCC) [J44.9], Hypoxia [R09.02] 04[facility] GAB[facility] GALVAN - 3 month follow [...] Date Reviewed: 01/03/2025 Reviewed by: Lyndsey Acevedo APRN.CYCLE CONSULTANT - Fully Assessed Reason for Visit: ACJuliann MANUELA RN [[id number]] Cmt: Chart review per payor request Primary [...] incontinence (788.30) Prolapsed bladde (more content not included)...[facility] Discharge summary [facility] Medical Records Department [address] [place] [address] Emergency Department Summary 01/10/25 MR#: [id number] Acct: [id number] Name: MARCIA MASCORRO Rep #:[id number] : 1955 69 From: Javon Reyes MD [...] TIA, COPD on O2 at home, hiatalhernia. Complainingof about chronic left flank pain. She has had it for months or longer. She was just seen in the emergency department at the end of last month had an extensive workup including a CAT scan without any specific cause for her pain. She is on chronic pain medication at home and uses [place]. She denies any change in the pain. 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 Vital signs stable afebrile. Pulse ox on3 L 90% no hypoxia. No distress. H EENT exam pupils round react to light. Moist mucous very benign exam. Membranes. Neck nontender no JVD. No lymphadenopathy. Lungs clear to auscultation bilaterally.Heart regular rate and rhythm rate about 70 no murmur. Chest wall ribs nontender. Back nontender. Abdomen soft, nontender, nondistended normal bowel sounds without peritoneal signs. There is no hernia or mass. No distention or obstruction. Skin on her abdomen and back is unremarkable. No rashes. Moving all 4 extremities. Nontender no edema. Normal billing associate strength. Normal dorsi plantarflexion. She is awake [...] will be discharged home. She already has [place] at home forpain. Repeat exam at 6:22 PM. Patient want [...] % (Auto) 52.1 Lymph % (Auto) 35.8 Rogers % (Auto) 8.2 Eos % (Auto) 3.2 [...] Clarity Clear Urine pH 6.0 Ur Specific [place] 1.020 Urine Protein 30 H Urine Glucose [...] that you use at home. Print Language: [place] Disposition Disposition: Home, Self Care What to do if you have Problems For any increased pain, shortness of breath, bleeding, nausea or vomiting, chestpain, or any unexpected problems, contact your Primary Care Provider. Call [facility] ([phone]) or report tothe closest Emergency Room. Call 911 if necessary. 01/10/25 1823 Cosigner Signature (if applicable): CC: Dr. Gabriel Galvan MD ~ Signed [facility]05-06-2025 Telephone encounter Note* Telephone Encounter - Lyndsey Acevedo APRN.CNS - 01/10/2025 3:40 PM EDT I have a form from [facility] form on my desk. Is she currently continuing to reside there? Do they need the last office note? Did not discuss at her recent visit, not sure why I have the form. [facility]05-06-[facility]25 Discharge summary Author Javon Reyes [facility] Note Date/Time January 10, 2025 6:23pm [facility] Medical Records Department [address] [place] [address] Emergency Department Summary 01/10/25 MR#: [id number] Acct: [id number] Name: MARCIA MASCORRO Rep #:[id number] : 1955 69 From: Javon Reyes MD [...] chronic pain medication at home and uses [place]. She denies any change in the pain. 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 Nontender no edema. Normal billing associate strength. Normal dorsi plantarflexion. She is awake [...] will be discharged home. She already has [place] at home for pain. Repeat exam at [...] % (Auto) 52.1 Lymph % (Auto) 35.8 Rogers % (Auto) 8.2 Eos % (Auto) 3.2 [...] Clarity Clear Urine pH 6.0 Ur Specific [place] 1.020 Urine Protein 30 H Urine Glucose [...] that you use at home. Print Language: [place] Disposition Disposition: Home, Self Care What to do if you have Problems For any increased pain, shortness of breath, bleeding, nausea or vomiting, chestpain, or any unexpected problems, contact your Primary Care Provider. Call [facility] ([phone]) or report to the closest Emergency Room. Call 911 if necessary. 01/10/25 1823 <Electronically signed by Javon Reyes MD> Cosigner Signature (if applicable): CC: Dr. Gabriel Galvan MD ~ Signed [facility] Work Phone: [phone] Progress note* Result Encounter Note - Lyndsey Acevedo APRN.CYCLE CONSULTANT - 01/06/2025 11:13 AM EDT Culture shows normal yasmani. Needs appt with Dr. Kroh scheduled. [facility]04-29-2025 Instructions* Patient Instructions* Lyndsey Acevedo APRN.CNS - [...] Schedule an appointment with the Dr. Mcduffie [facility] doctor, as recommended by Dr. Tejada, for further evaluation of your hiatal hernia and related symptoms. - Keep your upcoming appointment with the lung doctor (Dr. Peyton Torres) for your breathing evaluation. - Call your heart doctor to schedule an echo before seeing the surgeon in [place]. Ongoing Care: - Continue taking your current medication for Retana s esophagus as prescribed. See either Dr. Martinez or other tip out worker for follow up of Retana's esophagus documented in this encounterSt. [facility]04-29-2025 NoteHNO ID: [id number] Author: LYNDSEY ACEVEDO APRN.CNS Service: ? Author Type: Nurse Specialist Type: Progress Notes Filed: 01/03/2025 14:51 Note Text: Subjective Patient ID: Marcia is a 69 year old female who presents for Hospital F/U. HPI She was seen at [facility] on December 20, 2024 for shortness of breath. She was also seen at [facility] on December 30 for abdominal pain. She was seen at [facility] 04-21 for shortness of breath. She [...] think, to [facility] to be seen by Dr. Mcduffie. [...] yet seen the recommended specialist at the [facility]. Renal Concerns: - Reports foamy urine [...] 3 L/min. 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 ROS Constitutional: (no entries) Head: (no [...] Bilirubin, Total 0.2 - (more content not included)...[facility] History of Present illness Narrative* Lyndsey Acevedo, JARRED.CYCLE CONSULTANT - 01/03/2025 1:26 PM EDT Subjective Patient ID: Marcia is a 69 year old female who presents for Hospital F/U. HPI She was seen at [facility] on December 20, 2024 for shortness of breath. She was also seen at [facility] on December 30 for abdominal pain. She was seen at [facility] 04-21 for shortness of breath. She [...] 3 L/min. 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 ROS Constitutional: (no entries) Head: (no [...] Hypoxia (R09.02) - Referred to Dr. Torres, whip operator, for further evaluation and management. - is on supplemental oxygen, recently increased from 2 to 3 L/min. - Discussed the importance of consistent oxygen use. - Schedule pulmonary function tests. 3. Retana's esophagus without dysplasia (K22.70) - Follow-up with Dr. Martinez, tip out worker, or preferred gasteroenterologist is pending. - is on current medication regimen for Retana's esophagus; advised to continue. - Referral to a different tip out worker initiated to expedite care per her request [...] floating sensation; further evaluation needed. Lyndsey Acevedo APRN.CYCLE CONSULTANT Medical Decision Making: Problems: Moderate: 2+ stable chronic illnesses Data: Unique source(s) for external note(s) reviewed: 1 Unique test result(s) reviewed: 3+ Risk: Moderate: Drug management Medical Decision Making Level: 4 - Moderate documented in this encounterSt. Mary'[facility]04[facility] Discharge summary [facility] Records Department [address] [place] [address] Emergency Department Summary 12/30/24 MR#: [id number] Acct: [id number] Name: MARCIA MASCORRO Rep #:[id number] : 1955 69 From: Waqas Hart MD [...] she has had for quite some time. 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 Reading Location: [facility] Chest X-Ray 12/30/24 20:07 IMPRESSION: No Acute Findings. Reading Location: [facility] Discharge Plan Triage Chief Complaint: Abd Pain [...] - As soon as possible Print Language: [place] Disposition Disposition: Home, Self Care What to do if you have Problems For any increased pain, shortness of breath, bleeding, nausea or vomiting, chestpain, or any unexpected problems, contact your Primary Care Provider. Call [facility] ([phone]) or report tothe closest Emergency Room. Call 911 if necessary. 12/30/242147 Cosigner Signature (if applicable): CC: Dr. Gabriel Galvan MD ~ Signed [facility]04-25-2025 Radiology Diagnostic study note [facility] Imaging Services [address] [place] [address] Abdomen/Pelvis without Cont MR#: [id number] Acct: [id number] Name: MARCIA MASCORRO Rep #: [id number] : 1955 F 69 From: Lukasz Gandhi MD PCP: Dr. Gabriel Galvan MD Status: RE G ER Study:Abdomen/Pelvis without Cont Date of Exa m: 12/30/24 Exam# [id number] Ordering Dr: Waqas Hart MD PROCEDURE: ABDOMEN/PELVIS [...] 3.8 cm abdominal aortic aneurysm. Reading Location: [facility] CC: Dr. Waqas Hart MD; Dr. Gabriel Galvan MD ~ Corporate Tax Preparer: Signed [facility]04-25-2025 Radiology Diagnostic study note [facility] Imaging Services [address] [place], [place] [id number] Chest 1 View (Portable) MR#: [id number] Acct: [id number] Name: MARCIA MASCORRO Rep #: [id number] : 1955 F 69 From: Lukasz Gandhi MD PCP: Dr. Gabriel Galvan MD Status: RE G ER Study:Chest 1 View (Portable) Date of Exam: 12/30/24 Exam# [id number] Ordering Dr: Waqas Hart MD PROCEDURE: CHEST 1 VIEW (PORTABLE) 12/30/2024 REASON FOR EXAM: COPD TECHNIQUE: Frontal view of the chest. COMPARISON: 12/20/2024 FINDINGS: Hardware: None Heart: Heart size is moderately enlarged. Lungs: The lungs are clear. Bones: The bones are unremarkable. Other: RAD/Chest 1 View (Portable) IMPRESSION: No Acute Findings. Reading Location: [facility] CC: Dr. Waqas Hart MD; Dr. Gabriel Galvan MD ~ Corporate Tax Preparer: Signed [facility]04-25-2025 Discharge summary Author Waqas Hart [facility] Note Date/Time December 30, 2024 9:4 8pm [facility] Medical Records Department [address] [place] [address] Emergency Department Summary 12/30/24 MR#: [id number] Acct: [id number] Name: MARCIA MASCORRO Rep #:[id number] : 1955 69 From: Waqas Hart MD [...] she has had for quite some time. 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 Reading Location: [facility] Chest X-Ray 12/30/24 20:07 IMPRESSION: No Acute Findings. Reading Location: [facility] Discharge Plan Triage Chief Complaint: Abd Pain [...] - As soon as possible Print Language: [place] Disposition Disposition: Home, Self Care What to do if you have Problems For any increased pain, shortness of breath, bleeding, nausea or vomiting, chestpain, or any unexpected problems, contact your Primary Care Provider. Call [facility] ([phone]) or report to the closest Emergency Room. Call 911 if necessary. 12/30/242147 <Electronically signed by Waqas Hart MD> Cosigner Signature (if applicable): CC: Dr. Gabriel Galvan MD ~ Signed [facility] Work Phone: [phone] NoteHNO ID: [id number] Author: SALUD FOSTER, ? Service: ? Author Type: Patient Platinumsmith Type: Progress Notes Filed: 12/23/2024 08:17 Note [...] / pended orders: ER Follow-up 12/28/2024 in [facility] with NORA CRESPO - ED follow up 01/09/2025 in [facility] with NORA CRESPO - 3 month follow up 04/17/2025 in [facility] with GABRIEL GALVAN - 3 month follow up, HM: AWV, Mammo, Eye exam, KED, HCC Gap Closure Navigation Signature: Salud Foster Population Health Navigator December 23, 2024 8:14 [facility]04-17-2025 NoteHNO ID: [id number] Author: BRENDA MCGINNIS, WENDY Service: ? Author Type: Registered Nurse Type: Progress Notes Filed: 12/22/2024 19:52 Note Text: Summary: Chart review review per request of payor ZEENAT ROY RN Patient identified by name and date of . Reason for review or outreach: Chart Review Manuela Priority Emergency Department Utilization REQUESTED ACTION/FYI: Please see ED Utilization summary below A follow-up appointment is noted to be scheduled on 01/09/25. We are forwarding this patient to Network Navigation to schedule a sooner [facility] 12/20/24 PCP follow-up appointment. Thank you Exclusion Criteria Incorrect attribution Does not meet exclusion criteria Utilization in past 12 months: # Occurrences Date Last Occurrence Hospital Admission 3 09/28/24 Hospital Observation 0 N/A ED 5-OON 12/20/24 SNF / Acute Rehab / LTAC 1 12/01/23 ED DIAGNOSES/REASON(S) FOR ED USE: [facility] 12/20/24 COPD exacerbation vs pneumonia OTHER FINDINGS/SUMMARY: Prescribed Steroids, advised no smoking with oxygen, F/U with pcp Patient Attributed To: Incorrect attribution QAE Payer: Yang DIOR Action Taken: Referrals/Routed: Population Health Navigation: Appointment. Router to [facility] [[id number]] -Payor attribution list updated with changed PCP information Contact made with patient: No, Chart review only. Signature: Brenda Mcginnis MSN,RN,[facility] Project Manager Senior Management Contract RN [phone]-17-[facility] History of Present illness Narrative* Brenda Mcginnis RN - 12/22/2024 7:43 PM EDTSummary: Chart review review per request of payor ZEENAT ROY RN Patient identified by name and date of . Reason for review or outreach: Chart Review Manuela Priority Emergency Department Utilization REQUESTED ACTION/FYI: Please see ED Utilization summary below A follow-up appointment is noted to be scheduled on 01/09/25. We are forwarding this patient to Network Navigation to schedule a sooner [facility] 12/20/24 PCP follow-up appointment. Thank you Exclusion Criteria Incorrect attribution Does not meet exclusion criteria Utilization in past 12 months: # Occurrences Date Last Occurrence Hospital Admission 3 09/28/24 Hospital Observation 0 N/A ED 5-OON 12/20/24 SNF / Acute Rehab / LTAC 1 12/01/23 ED DIAGNOSES/REASON(S) FOR ED USE: [facility] 12/20/24 COPD exacerbation vs pneumonia OTHER FINDINGS/SUMMARY: Prescribed Steroids, advised no smoking with oxygen, F/U with pcp Patient Attributed To: Incorrect attribution QAE Payer: Yang DIOR Action Taken: Referrals/Routed: Population Health Navigation: Appointment. Router to [facility] [[id number]] -Payor attribution list updated with changed PCP information Contact made with patient: No, Chart review only. Signature: Brenda MYERS,RN,[facility] Project Manager Senior Management Contract RN [phone] documented in this encounterSt. Mary'[facility]25 NotePatient Outreach ([facility]) MARCIA MASCORRO ([id number]) 1955 F CHT Date Time Provider Department 12/22/24 BRENDA MCGINNISJorden During your visit today, we recorded the [...] to Network Navigation to schedule a sooner [facility] 12/20/24 PCP follow-up appointment. Thank you Exclusion Criteria Incorrect attribution Does not meet exclusion criteria Utilization in past 12 months: # Occurrences Date Last Occurrence Hospital Admission 3 09/28/24 Hospital Observation 0 N/A ED 5-OON 12/20/24 SNF / Acute Rehab / LTAC 1 12/01/23 ED DIAGNOSES/REASON(S) FOR ED USE: [facility] 12/20/24 COPD exacerbation vs pneumonia OTHER FINDINGS/SUMMARY: Prescribed Steroids, advised no smoking with oxygen, F/U with pcp Patient Attributed To: Incorrect attribution QAE Payer: Yang BARBY Action Taken: Referrals/Routed: Population Health Navigation: Appointment. Router to [facility] [[id number]] -Payor attribution list updated with changed PCP information Contact made with patient: No, Chart review only. Signature: Brenda MYERS,RN,[facility] Project Manager Senior Management Contract RN [phone] Salud Foster 12/23/2024 8:17 AM Signed POPULATION HEALTH NAVIGATION OUTREACH Action/ Scheduled patient ED follow up appt ED [...] / pended orders: ER Follow-up 12/28/2024 in [facility] with NORA CRESPO - ED follow up 01/09/2025 in [facility] with NORA CRESPO - 3 month follow up 04/17/2025 in [facility] with GABRIEL GALVAN - 3 month follow up, HM: AWV, Mammo, Eye exam, KED, [facility] Gap Closure Navigation Signature: Salud Foster Population Health Navigator December 23, 2024 8:14 AM Allergies As of Date: 12/22/2024 Noted Allergy Reaction CONTRAST DYE (IODINE) 12/20/2023 10 - Anaphylaxis Date Reviewed: 09/14/2024 Reviewed by: Melissa Leon LPN - Fully Assessed Reason for Visit: M MAUNELA RN [[id number]] Cmt: Chart review review per request of [...] gabapentin (NEURONTIN) 400 mg (more content not included)...[facility]04-15-2025 Discharge summary [facility] Medical Records Department [address] [place] [address] Emergency Department Summary 12/20/24 MR#: [id number] Acct: [id number] Name: MARCIA MASCORRO Rep #:[id number] : 1955 69 From: Waqas Hart MD [...] radiation to the left shoulder as well. 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 She is [...] % (Auto) 52.8 Lymph % (Auto) 35.8 Rogers % (Auto) 7.6 Eos % (Auto) 2.8 [...] 2. Additional description as above. Reading Location: [facility] Discharge Plan Triage Chief Complaint: Shortness [...] breath, new or worsening symptoms. Print Language: [place] Disposition Disposition: Home, Self Care What to do if you have Problems For any increased pain, shortness of breath, bleeding, nausea or vomiting, chestpain, or any unexpected problems, contact your Primary Care Provider. Call [facility] ([phone]) or report tothe closest Emergency Room. Call 911 if necessary. 12/20/24 1822 Cosigner Signature (if applicable): CC: Dr. Gabriel Galvan MD ~ Signed [facility]04-15-2025 Radiology Diagnostic study note [facility] Imaging Services [address] [place] [address] Chest 1 View (Portable) MR#: [id number] Acct: [id number] Name: MARCIA MASCORRO Rep #: [id number] : 1955 F 69 From: Margarita Bustos MD PCP: Dr. Gabriel Galvan MD Status: RE G ER Study:Chest 1 View (Portable) Date of Exam: 12/20/24 Exam# [id number] Ordering Dr: Waqas Hart MD PROCEDURE: CHEST [...] 2. Additional description as above. Reading Location: [id number] CC: Dr. Waqas Hart MD; Dr. Gabriel Galvan MD ~ Corporate Tax Preparer: Signed [facility]04-15-2025 Discharge summary Author Waqas Hart [facility] Note Date/Time December 20, 2024 6:2 2pm [facility] [address] [place] [address] Emergency Department Summary 12/20/24 MR#: [id number] Acct: [id number] Name: MARCIA MASCORRO Rep #[id number] : 1955 69 From: Waqas Hart MD [...] radiation to the left shoulder as well. 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 She is [...] % (Auto) 52.8 Lymph % (Auto) 35.8 Rogers % (Auto) 7.6 Eos % (Auto) 2.8 [...] 2. Additional description as above. Reading Location: [id number] Discharge Plan Triage Chief Complaint: Shortness of [...] breath, new or worsening symptoms. Print Language: [place] Disposition Disposition: Home, Self Care What to do if you have Problems For any increased pain, shortness of breath, bleeding, nausea or vomiting, chestpain, or any unexpected problems, contact your Primary Care Provider. Call [facility] ([phone]) or report to the closest Emergency Room. Call 911 if necessary. 12/20/24 1822 <Electronically signed by Waqas Hart MD> Cosigner Signature (if applicable): CC: Dr. Gabriel Galvan MD ~ Signed [facility] Work Phone: 1(530) 105-342304-01-2025 NoteHNO ID: [id number] Author: SCOT YORK MA Service: ? Author Type: Steel Unloader Type: Progress Notes Filed: 12/06/2024 14:30 Note Text: POPULATION HEALTH NAVIGATION OUTREACH Action/FYI Gaps due: AWV DIABETIC RETINAL EXAM Mammo KED LVM, updated notes, sent mcm. Reason for Outreach Care Gap/HCC or Scheduling Wellness Visits Care Gaps due: Medicare Annual Wellness Visit Breast Cancer Screening Diabetic Eye Exam KED Patient Contacted: Unable or unnecessary to reach patient: Left message TrumpIT message sent HCC related Updated appointment notes Navigation Signature: Scot York MA December 06, 2024 2:26 [facility] History of Present illness Narrative* Scot York [...] or unnecessary to reach patient: Left message [employer] message sent HCC related Updated appointment notes Navigation Signature: Scot York MA December 06, 2024 2:26 PM documented in this encounterSt. [facility] NotePatient Outreach (NETNAV) MASCORROMARCIA Vale ([id number]) 1955 F T Date Time Provider Department [...] or unnecessary to reach patient: Left message delicioushart message sent [facility] related Updated appointment notes Navigation Signature: Scot [...] screening [Z12.11] 04/16/2016 04/16/2016 (more content not included)...[facility]03-17-2025 NoteHNO ID: [id number] Author: PERLA ALVARADO CPhT Service: ? Author Type: Foil Spooler Type: Progress Notes Filed: 11/21/2024 11:43 Note Text: Patient is identified through a medication adherence outreach initiative based on pharmacy claims data from: [employer] Medication Adherence Category: Hypertension Statins First Review Attribution Status: Correct Attribution Medication(s) Lisinopril 5 mg 1 tab daily Due 11/15/24 last filled 10/15/24 for 30 ds Medication Status per [employer] Reconcile Dispense: Filled on time - On or before next fill date Date Filled (MM/DD): 11/12 Day Supply: 30 Medication Status per Profile Review: No issues per profile review Atorvastatin 40 mg 1 tab daily Due 11/15/24 last filled 10/15/24 for 30 ds Medication Status per [employer] Reconcile Dispense: Filled on time - On or before next fill date Date Filled (MM/DD): 11/12 Day Supply: 30 Medication Status per Profile Review: No issues per profile review Patient appropriate for outreach? No Reason patient not appropriate for outreach:Patient filled on time / no adherence concerns to be addressed Perla Alvarado CPhT [facility] History of Present illness Narrative* Perla Alvarado CPhT - 11/21/2024 11:39 AM EDT Patient is identified through a medication adherence outreach initiative based on pharmacy claims data from: [employer] Medication Adherence Category: Hypertension Statins First Review [...] Perla Alvarado CPhT [facility] Pharmacy Team documented in this encounterSt. [facility] NotePatient Outreach (PHPOHE) MARCIA MASCORRO ([id number]) 1955 F CHT Date Time Provider Department 11/21/24 GABRIEL GALVAN PHPOHE During your visit today, we recorded the following information about you: Perla Alvarado CPhT 11/21/2024 11:43 AM Signed Patient is identified through a medication adherence outreach initiative based on pharmacy claims data from: [employer] Medication Adherence Category: Hypertension Statins First Review [...] concerns to be addressed Perla Alvarado CPhT [facility] Team Allergies As of Date: [...] reflux disease) [K21.9] Chr (more content not included)...[facility]-12-[facility] Telephone encounter Note* Telephone Encounter - Marisa Mcdermott LPN - 11/16/2024 11:03 AM EDT Completed form has been faxed back. [facility]03-12-2025 Miscellaneous Notes* Telephone Encounter - Marisa Mcdermott LPN - 11/16/2024 11:03 AM EDT Completed form has been faxed back. * Telephone Encounter - Peyton Lindo MA - 11/14/2024 4:22 PM EDT Form received and given to pcp to sign Peyton Lindo MA * Telephone Encounter - Elsy Sanz RN - 11/14/2024 2:43 PM EDT Rajiv blue from [facility] and states she will be faxing over a form for PCP to review andcomplete for patient's incontinence supplies. Elsy Wurst, RN documented in this encounterSt. Mary'[facility]03-10-2025 Telephone encounter Note * Telephone Encounter - Peyton Lindo MA - 11/14/2024 4:22 PM EDT Form received and given to pcp to sign Peyton Lindo MA [facility]03-10-2025 Telephone encounter Note* Telephone Encounter - Elsy Sanz RN - 11/14/2024 2:43 PM EDT Rajiv blue from [facility] and states she will be faxing over a form for PCP to review andcomplete for patient's incontinence supplies. Elsy Sanz RN [facility]02-19-2025 NoteHNO ID: [id number] Author: BIMAL GONZALEZ RN Service: ? Author Type: Registered Nurse Type: Progress Notes Filed: 10/26/2024 13:52 Note Text: Transitional Care Management (TCM) Follow-Up Note PCP Update / Actionable Items N/A - No specialty updates needed Patient Source: Nnq-kp-Yqstauf (OON) Discharge Outreach Summary: Spoke with patient [...] Contact made with patient: Yes Spoke to: [facility] Validation: Validated the person spoken to [...] Bimal Gonzalez RN October 26, 2024 1:51 [facility]02-19-2025 History of Present illness Narrative* Bimal Gonzalez, RN - 10/26/2024 1:28 PM EST Transitional Care Management (TCM) Follow-Up Note PCP Update / Actionable Items N/A - No specialty updates needed Patient Source: Gwp-tg-Azpwgpw (OON) Discharge Outreach Summary: Spoke with patient [...] Contact made with patient: Yes Spoke to: [facility] Validation: Validated the person spoken to [...] 26, 2024 1:51 PM documented in this encounterSt. Mary[facility]02-[facility]-2025 NotePatient Outreach (AMBCMG) MARCIA MASCORRO ([id number]) 1955 F T Date Time Provider Department 10/26/24 BIMAL GONZALEZ AMBCMG During your visit today, we recorded the following information about you: Bimal Gonzalez RN 10/26/2024 1:52 PM Signed Transitional Care Management (TCM) Follow-Up Note PCP Update / Actionable Items N/A - No specialty updates needed Patient Source: Ltq-hw-Wtgytlz (OON) Discharge Outreach Summary: Spoke with patient [...] Contact made with patient: Yes Spoke to: [facility] Validation: Validated the person spoken to [...] Visit: Transition Of Care [4074] Cmt: TCM [facility]- Follow-up Day 26 Prescriptions as of [...] day. - clopidogrel (PLAVI (more content not included)...[facility] 10-12-2024 Telephone encounter Note* Telephone Encounter - Rajiv Hendricks - 10/12/2024 4:29 PM EST Spoke with daughter to confirm EGD procedure date & with my phone number [phone]. [facility]02-05-2025 Miscellaneous Notes* Telephone Encounter - Rajiv Hendricks - 10/12/2024 4:29 PM EST Spoke with daughter to confirm EGD procedure date & with my phone number [phone]. documented in this encounterSt. Mary'[facility]02-03-2025 NoteHNO ID: [id number] Author: BIMAL GONZALEZ RN Service: ? Author Type: Registered Nurse Type: Progress Notes Filed: 10/10/2024 15:19 Note Text: Transitional Care Management (TCM) Follow-Up Note PCP Update / Actionable Items N/A - No specialty updates needed Patient Source: Bda-kc-Biddnrw (OON) Discharge Outreach Summary: Spoke with daughter/Marleny,states [...] Main 10/19 Hand Endoscopy Patient discharged from [facility] Discharge date: 09/30/24 Admitted for: Cough [...] Bimal Gonzalez RN October 10, 2024 3:15 [facility]02-03-[facility] History of Present illness Narrative* Bimal Gonzalez, WENDY - 10/10/2024 3:08 PM EST Transitional Care Management (TCM) Follow-Up Note PCP Update / Actionable Items N/A - No specialty updates needed Patient Source: Rrc-sw-Rzxlklx (OON) Discharge Outreach Summary: Spoke with daughter/Marleny,states [...] Main 10/19 Hand Endoscopy Patient discharged from [facility] Discharge date: 09/30/24 Admitted for: Cough [...] 10, 2024 3:15 PM documented in this encounterSt. [facility]02-[facility] Telephone encounter Note * Telephone Encounter - Savannah Cruz MSW - 10/10/2024 11:27 AM EST Sw left message for patient daughter to return Sw call to discuss transportation assistance needs. [facility]02-03-2025 Miscellaneous Notes* Telephone Encounter - Savannah Cruz [...] discuss transportation assistance needs. documented in this encounterSt. Mary'[facility]02-[facility]-2025 NotePatient Outreach (AMBCMG) MARCIA MASCORRO ([id number]) 1955 F CHT Date Time Provider Department 10/10/24 BIMAL GONZALEZ AMBCMG During your visit today, we recorded the following information about you: Bimal Gonzalez, RN 10/10/2024 3:19 PM Signed Transitional Care Management (TCM) Follow-Up Note PCP Update / Actionable Items N/A - No specialty updates needed Patient Source: Jfd-cy-Zghpxro (OON) Discharge Outreach Summary: Spoke with daughter/Marleny,states [...] Main 10/19 Hand Endoscopy Patient discharged from [facility] Discharge date: 09/30/24 Admitted for: Cough [...] for Visit: Transition Of Care [4074] Cmt: [facility] Folow-up Day 10 Prescriptions as of 10/10/2024 [...] capsule by mouth three (more content not included)...[facility] Telephone encounter Note* Telephone Encounter - Gabriel Galvan MD - 10/09/2024 4:43 PM EST See Aníbalt reply Has 2/4 follow up so will discuss cardiology appointment then [facility]02-02-2025 Miscellaneous Notes* Telephone Encounter - Gabriel Galvan MD - 10/09/2024 4:43 PM EST See Aníbalt reply Has 2/4 follow up so will discuss cardiology appointment then documented in this encounterSt. Mary'[facility]01-30-2025 Telephone encounter Note * Telephone Encounter - Savannah Cruz MSW - 10/06/2024 9:49 AM EST Sw left 2nd message for patient daughter to return Sw call to discuss transportation resource needs. [facility]01-28-2025 Telephone encounter Note* Telephone Encounter - Savannah Cruz MSW - 10/04/2024 10:36 AM EST Sw left message for patient daughter to return Sw call to discuss transportation assistance needs. [facility]01-27-2025 NoteHNO ID: [id number] Author: SALUD FOSTER, ? Service: ? Author Type: Patient Platinumsmith Type: Progress Notes Filed: 10/03/2024 12:21 Note Text: POPULATION HEALTH NAVIGATION OUTREACH Action/FYI Scheduled TCM appt 10-11-2023 [facility] 10-14-2024 Patient discharged from [facility] Discharge date: 09/30/24 Admitted for: Cough and shortness of breath COPD exacerbation Readmission Risk: n/a Reason for Outreach Community Monitoring/Network Navigator Pools AND Phone Line: Pool Patient Contacted: Spoke to patient/parent/or legal guardian Patient identified by name and : Yes Community Monitoring/Network Navigator Pools AND Phone Line actions taken: Patient scheduled: Hospital Follow-up: Low risk <9% 10/11/2024 in [facility] with [facility] - Encounter for screening mammogram for breast cancer [Z12.31] 10/11/2024 in [facility] with GABRIEL GALVAN - hospital follow up 10/17/2024 in [facility] with [facility] - copd 10/17/2024 in [facility] with [facility] - copd 10/17/2024 [facility] with PEYTON TORRES - copd 10/18/2024 in [facility] with NURSE GI LAB I - MANOMETRY ESOPHAGEAL 10/19/2024 in HAND ENDOSCOPY with SHRUTI ONTIVEROS - Hiatal hernia [K44.9] Navigation Signature: Salud Foster Population Health Navigator October 03, 2024 12:20 [facility]01-27-2025 History of Present illness Narrative* Salud Foster - 10/03/2024 12:20 PM EST POPULATION HEALTH NAVIGATION OUTREACH Action/FYI Scheduled TCM appt 10-11-2023 TCM eliigble until 10-14-2024 Patient discharged from [facility] Discharge date: 09/30/24 Admitted for: Cough and shortness of breath COPD exacerbation Readmission Risk: n/a Reason for Outreach Community Monitoring/Network Navigator Pools & Phone Line: CM Pool Patient Contacted: Spoke to patient/parent/or legal guardian Patient identified by name and : Yes Community Monitoring/Network Navigator Pools & Phone Line actions taken: Patient scheduled: Hospital Follow-up: Low risk <9% 10/11/2024 in [facility] with [facility] - Encounter for screening mammogram forbreast cancer [Z12.31] 10/11[facility]20[facility] with GABRIEL GALVAN - hospital follow up 10/17/2024 in [facility] with [facility] - copd 10/17/2024 in [facility] with [facility] - copd 10/17/2024 in [facility] with PEYTON TORRES - copd 10/18/2024 in [facility] with NURSE GI LAB I - MANOMETRY ESOPHAGEAL 10/19/2024 in HAND ENDOSCOPY with SHRUTI ONTIVEROS - Hiatal hernia [K44.9] Navigation Signature: Salud Foster Population Health Navigator October 03, 2024 12:20 PM * Bimal Gonzalez RN - 10/03/2024 11:24 AM EST Transition Care Management (TCM) Initial Outreach PCP Update / Actionable Items Patient daughterKacy is requesting a walker. will route Patient need help with SW, will route OON No risk Score Follow-up within 14 days 10/14/24 HRTIC TCM Home Visit Referral Source of Stratification: [facility] Hospital Admission Status: Discharged Readmission Risk Score: n/a Patient's zip code: [address] Is zip code within program service area: No Patient meets program referral criteria: No Patient does not qualify for High Risk TCM Home Visit program due to: Readmission Risk Score does not meet criteria Disposition: Patient does not qualify for HRTIC, will provide TCM outreach follow-up for 30-days Patient Source: Kls-ir-Fruqwrv (OON) Discharge Outreach Summary: Spoke with daughterKacy [...] , no issues, stable Patient discharged from [facility] Discharge date: 09/30/24 Admitted for: Cough and shortness of breath COPD exacerbation Readmission Risk: n/a Value-Based Contract: Yang DIOR Contact: Contact made with patient: Yes Hi, my name is Bimal Gonzalez RN and I am calling from the [facility] on behalf of your Primary Care Provider, [...] I will send your request to a name plate stamper who will contact and assist you with that appointment. This will give you an opportunity to ask any questions or address any concerns youmay have with your PCP. Inform the patient that if they have any questions or concerns prior to that appointment, to call their PCP's office right away. Appointment Action: Patient desires an appointment. Complete Navigation Team box and route to [facility] ([id number]) for scheduling. Education N/A Targets addressed / completed during outreach: Contact patient within two (2) business days Outreach Outcome: Enrolled in TCM Care Management partners utilized: Navigation Team Bimal Gonzalez RN October 03, 2024 11:45 AM documented in this encounterSt. Mary'[facility]01[facility]27-2025 NoteHNO ID: [id number] Author: BIMAL GONZALEZ RN Service: ? Author Type: Registered Nurse Type: Progress Notes Filed: 10/03/2024 12:04 Note Text: Transition Care Management (TCM) Initial Outreach PCP Update / Actionable Items Patient daughter/Marleny is requesting a walker. will route Patient need help with SW, will route OON No risk Score Follow-up within 14 days 10/14/24 [facility] TCM Home Visit Referral Source of Stratification: [facility] Hospital Admission Status: Discharged Readmission Risk Score: n/a Patient's zip code: [address] Is zip code within program service area: No Patient meets program referral criteria: No Patient does not qualify for High Risk TCM Home Visit program due to: Readmission Risk Score does not meet criteria Disposition: Patient does not qualify for HRTIC, will provide TCM outreach follow-up for 30-days Patient Source: Wfp-kd-Pezibca (OON) Discharge Outreach Summary: Spoke with daughter/Marleny [...] , no issues, stable Patient discharged from [facility] Discharge date: 09/30/24 Admitted for: Cough and shortness of breath COPD exacerbation Readmission Risk: n/a Value-Based Contract: Yang DIOR Contact: Contact made with patient: Yes Hi, my name is Bimal Gonzalez RN and I am calling from the [facility] on behalf of your Primary Care Provider, [...] I will send your request to a name plate stamper who will contact and assist you with [...] Complete Navigation Team box and route to [facility] ([id number]) for scheduling. Education N/A Targets addressed / completed during outreach: Contact patient within two (2) business days Outreach Outcome: Enrolled in TCM Care Management partners utilized: Navigation Team Bimal Gonzalez RN October 03, 2024 11:45 [facility]01-27-2025 NotePatient Outreach (AMBCMG) MARCIA MASCORRO ([id number]) 1955 F CHT Date Time Provider Department 10/03/24 BIMAL GONZALEZ During your visit today, we recorded the following information about you: Bimal Gonzalez RN 10/03/2024 12:04 PM Signed Transition Care Management (TCM) Initial Outreach PCP Update / Actionable Items Patient daughter/Marleny is requesting a walker. will route Patient need help with SW, will route OON No risk Score Follow-up within 14 days 10/14/24 HRTIC TCM Home Visit Referral Source of Stratification: [facility] Hospital Admission Status: Discharged Readmission Risk Score: n/a Patient's zip code: [address] Is zip code within program service area: No Patient meets program referral criteria: No Patient does not qualify for High Risk TCM Home Visit program due to: Readmission Risk Score does not meet criteria Disposition: Patient does not qualify for HRTIC, will provide TCM outreach follow-up for 30-days Patient Source: Sit-ki-Uofmnai (OON) Discharge Outreach Summary: Spoke with daughter/Marleny [...] , no issues, stable Patient discharged from [facility] Discharge date: 09/30/24 Admitted for: Cough and shortness of breath COPD exacerbation Readmission Risk: n/a Value-Based Contract: Yang DIOR Contact: Contact made with patient: Yes Hi, my name is Bimal Gonzalez RN and I am calling from the [facility] on behalf of your Primary Care Provider, [...] I will send your request to a name plate stamper who will contact and assist you with [...] Complete Navigation Team box and route to [facility] ([id number]) for scheduling. Education N/A Targets addressed / completed during outreach: Contact patient within two (2) business days Outreach Outcome: Enrolled in TCM Care Management partners utilized: Navigation Team Bimal Gonzalez RN October 03, 2024 11:45 AM Salud Foster 10/03/2024 12:21 PM Signed POPULATION HEALTH NAVIGATION OUTREACH Action/FYI Scheduled TCM appt 10-11-2023 TCM eliigble until 2 (more content not included)...[facility] 09-30-2024 Telephone encounter Note* Telephone Encounter - Melissa Leon LPN - 09/30/2024 12:00 PM EST Letter printed for PCP to sign. Melissa Leon LPN [facility]01-24-2025 Miscellaneous Notes* Telephone Encounter - Melissa Leon LPN - 09/30/2024 12:00 PM EST Letter printed for PCP to sign. Melissa Leon LPN * Telephone Encounter - Gabriel Galvan MD - 09/29/2024 10:40 PM EST Patient admitted to [facility] yesterday 09/28 with COPD exacerbation I [...] my electronically signed order to fax to Ezra John about giving her morning meds the night prior for next early AM doses * Telephone Encounter - Rula Hernandez RN - 09/28/2024 12:23 PM EST Patient calls to check on status of message below. Notified patient that provider is out today. Patient wanting APRON MAN to send in order for antibiotic for [...] [facility] Patient also states that she continues to have issues with cough. Patient asking if provider can send in prescription for Z-arabella? Patient's pharmacy is [facility]. Please review and advise, Linh Villalobos RN documented in this encounterSt. Mary'[facility]01[facility]2025 [facility]01-23-2025 Telephone encounter Note* Telephone Encounter - Gabriel Galvan MD - 09/29/2024 10:40 PM EST Patient admitted to [facility] yesterday 09/28 with COPD exacerbation I accidentally deleted the pended letter. Drafted another one to print to sign. [facility]01-23-2025 Telephone encounter Note* Telephone Encounter - Jackeline [...] get an appt with Dr. Brian modi. [facility]01-22-2025 Evaluation note* Diagnosis Onset Date Resolution Status Admit Date COPD exacerbation resolved September 28, 2024 4:40pm Hypoxemia resolved September 28, 2024 4:40pm Respiratory failure resolved 2024 4:40pm Ischemic cardiomyopathy acute J anuary 2024 9:51am LV (left ventricular) mural thrombus acute October 04 9:51am Preop cardiovascular exam acute October 04, 2024 9:51am Essential hypertension chronic [facility] 2024 9:51am Hyperlipidemia chronic October 042024 9:51am [facility] Work Phone: 1(993) 338-500701-22-2025 Evaluation note* Diagnosis Onset Date Resolution Status Admit Date COPD exacerbation resolved September 28, 2024 4:40pm Hypoxemia resolved September 28, 2024 4:40pm Respiratory failure resolved 2024 4:40pm Ischemic cardiomyopathy acute J anuary 2024 9:51am LV (left ventricular) mural thrombus acute October 04 9:51am Preop cardiovascular exam acute October 04, 2024 9:51am Essential hypertension chronic [facility] 2024 9:51am Hyperlipidemia chronic October 042024 9:51am Barretts esophagus chronic January 10:39am Common bile duct obstruction chronic January 13, 2025 10:39am Dysphagia chronic January 13, 2025 10:39am [facility] Work Phone: 1(628) 564-926701-22-2025 Telephone encounter Note* Telephone Encounter - Gabriel [...] my electronically signed order to fax to [facility] about giving her morning meds the night prior for next early AM doses [facility] [place]01-22-2025 Telephone encounter Note* Telephone Encounter - Rula Hernandez RN - 09/28/2024 12:23 PM EST Patient calls to check on status of message below. Notified patient that provider is out today. Patient wanting APRON MAN to send in order for antibiotic for cough. Patient reports she wants something done before she ends up in the hospital. Asked patient if she had tried anything OTC and patient reports she has tried everything. Patientdidn't give any specific medications tried. Patient supposed to be following up with pulmonology for COPD and pulmonary emphysema. Patient has not scheduled yet. Rula Hernandez RN [facility] [place]01-21-2025 Telephone encounter Note* Telephone Encounter - Linh [...] [facility] Patient also states that she continues to have issues with cough. Patient asking if provider can send in prescription for Z-arabella? Patient's pharmacy is [facility]. Please review and advise, Linh Villalobos RN [facility]01-08-2025 Instructions* Patient Instructions* Gabriel Galvan MD - 09/14/2024 4:38 PM EST - Medications: - Continue taking Airsupra as prescribed; refills sent to [facility]. - Take Dulcolax 5 mg tablets once daily as needed for constipation; prescription sent to [facility]. - Take Cymbalta (duloxetine) as prescribed for neuropathy; refills sent to [facility]. - Take Carafate in liquid form as prescribed; prescription sent to [facility]. - Take smaller potassium pills (10 mEq) twice daily; prescription sent to [facility]. - Take Phenergan (promethazine) as needed for nausea; prescription sent to [facility]. - Start taking spironolactone 25 mg daily to help maintain potassium levels; prescription sent to [facility]. - Start taking Miralax daily for constipation; prescription sent to [facility]. - Referrals: - Follow up with your current manager plan for pre-operative evaluation. - Referral to pulmonary [...] your clinician as needed. documented in this encounterSt. [facility]25 NoteHNO ID: [id number] Author: GABRIEL GALVAN MD Service: ? Author Type: Physician Type: Progress Notes Filed: 09/14/2024 16:40 Note Text: This note was created using Truliriter. Subjective Marcia Mascorro is a 68 year [...] is currently under the care of a structural steel painter, Dr. Forrest, and requests a referral to a manager planning for further evaluation. Additionally, Marcia has a [...] scheduled for a surgical evaluation at the [facility] and requests a referral to a manager plan for a pre-operative evaluation. 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 PAST MEDICAL HISTORY Diagnosis Date Abdominal aortic [...] as of 01/2020 per ER report from [facility]. Palpitation Primary cardiomyopathy (HCC) Pulmonary emphysema [...] daily. carvedilol (COREG) 6.25 (more content not included)...[facility] History of Present illness Narrative* Gabriel Galvan MD - 09/14/2024 4:07 PM EST This note was created using Searchdaimonter. Subjective Marcia Mascorro is a 68 year [...] is currently under the care of a structural steel painter,Dr. Forrest, and requests a referral to a manager planning for further evaluation. Additionally, Marcia has a [...] scheduled for a surgical evaluation at the [facility] and requests a referral to a manager plan for a pre-operative evaluation. 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 PAST MEDICAL HISTORY Diagnosis Date Abdominal aortic aneurysm (HCC) JOVANY (acute kidney injury) ([facility]) Anaphylactic reaction due to contrast Anxiety Retana's [...] as of 01/2020 per ER report from [facility]. Palpitation Primary cardiomyopathy (HCC) Pulmonary emphysema [...] and Spiriva; refills confirmed and sent to [facility]. - Monitor for any exacerbations or [...] Carafate suspension 1 gram QID; sent to [facility]. - Monitor for improvement in symptoms; follow-up [...] - Refilled necessary prescriptions and sent to [facility]. - Scheduled follow-up in 3 months to reassess medication efficacy and adherence. Gabriel Galvan MD documented in this encounterSt. [facility]12[facility]2024 NoteHNO ID: [id number] Author: RYANNE NEGRO APRN.[facility] Service: ? Author Type: Nurse Practitioner Type: [...] as of 01/2020 per ER report from [facility]. Palpitation Primary cardiomyopathy (HCC) Pulmonary emphysema (HCC) SVT (supraventricular tachycardia) (HCC) Tremor PAST SURGICAL HISTORY Procedure Laterality Date 2D ECHO (EXEP) 01/19/2017 EF=55%, mild LVH, LA enlargement, UT and TI, Diastolic dysfunction. 2D ECHO (EXEP) [...] capsule by mouth three (more content not included)...[facility] History of Present illness Narrative* Ryanne Negro APRN.PILOT CAPTAIN - 08/26/2024 5:42 PM EST CC: Patient [...] as of 01/2020 per ER report from [facility]. Palpitation Primary cardiomyopathy (HCC) Pulmonary emphysema (HCC) SVT (supraventricular tachycardia) (HCC) Tremor PAST SURGICAL HISTORY Procedure Laterality Date 2D ECHO (EXEP) 01/19/2017 EF=55%, mild LVH, LA enlargement, UT and TI, Diastolic dysfunction. 2D ECHO (EXEP) [...] Patient agreeable to treatment plan. Ryanne Negro APRN.PILOT CAPTAIN documented in this encounterSt. Mary'[facility]11-[facility]-2024 NotePatient Outreach (INTMMN) MARCIA MASCORRO ([id number]) 1955 F CHT Date Time Provider Department 07/20/24 GABRIEL GALVAN INTMMN During your visit today, we recorded the following information about you: Allergies As of Date: 07/20/2024 Noted Allergy Reaction CONTRAST DYE (IODINE) 12/20/2023 10 - Anaphylaxis Date Reviewed: 06/17/2024 Reviewed by: Chucky Zepead APRN.PILOT CAPTAIN - Fully Assessed Visit Diagnosis:Encounter for screening mammogram for breast cancer [Z12.31] Order(s):YANG SCREENING W GANESH [[id number]] Order #: [id number] FUTURE Prescriptions as of 07/25/2024 - omeprazole [...] proton pump inhibitor [Z (more content not included)...[facility]10-18-2024 History of Present illness Narrative* Jamie Orr MD - 06/24/2024 9:55 AM EDT VIRTUAL VISIT PROGRESS NOTE This is a virtual visit using delicioushart Zoom Video Visit. It required patient- provider interaction for the medical decision making as documented below. I have communicated my name and active licensure. The patient's identity and physical location wereverified at the time of this visit. Either the patient or their legal b2b outside sales representative has been informed of [...] as of 01/2020 per ER report from [facility]. Palpitation Primary cardiomyopathy (HCC) Pulmonary emphysema (HCC) SVT (supraventricular tachycardia) (HCC) Tremor PAST SURGICAL HISTORY Procedure Laterality Date 2D ECHO (EXEP) 01/19/2017 EF=55%, mild LVH, LA enlargement, UT and TI, Diastolic dysfunction. 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 [facility]10-[facility]-2024 Telephone encounter Note * Telephone Encounter - Nohemi Conley MA - 06/18/2024 9:41 AM EDT Daughter notified. Nohemi Conley MA [facility]10-12-2024 Miscellaneous Notes* Telephone Encounter - Nohemi Conley MA - 06/18/2024 9:41 AM EDT Daughter notified. Nohemi Conley MA * Telephone Encounter - Alex Meyer PA - 06/18/2024 8:07 AM EDT Negative COVID flu RSV documented in this encounterSt. Mary'[facility]10-12-2024 Telephone encounter Note * Telephone Encounter - Alex Meyer PA - 06/18/2024 8:07 AM EDT Negative COVID flu RSV [facility] Work Phone: [phone] Telephone encounter Note* Telephone Encounter - Elyse Nieves LPN - 06/17/2024 4:23 PM EDT Patient given results and verbalized understanding of instructions given. Elyse Nieves LPN [facility]10-11-2024 Miscellaneous Notes* Telephone Encounter - Elyse Nieves LPN - 06/17/2024 4:23 PM EDT Patient given results and verbalized understanding of instructions given. Elyse Nieves LPN * Telephone Encounter - Chucky Zepeda APRN.CNP - 06/17/2024 3:53 PM EDT Please inform patient that chest x-ray is normal. Will call with COVID-19 results. Chucky Zepeda APRN.CNP documented in this encounterSt. Mary'[facility]10-[facility]-2024 Telephone encounter Note * Telephone Encounter - Chucky Zepeda APRN.CNP - 06/17/2024 3:53 PM EDT Please inform patient that chest x-ray is normal. Will call with COVID-19 results. Chucky Zepeda APRN.CNP [facility]10-11-2024 Instructions* Patient Instructions* Chucky Zepeda APRN.DONNA - 06/17/2024 3:20 PM EDT How to [...] or concerning to you. documented in this encounterSt. Mary'[facility]10-11-2024 History of Present illness Narrative* Diamond King RT(R) - 06/17/2024 3:10 PM EDT [...] PATIENT PRESENTS WITH AN IMPLANTABLE OR ATTACHED PROPERTY ADMINISTRATOR: No RADIOLOGY DEPARTMENT: General X-ray: Exam(s) Completed: Chest X-Ray PERIPHERAL IV DATA: Not applicable SIGNED BY: RT Diandra(R) June 17, 2024 3:19 PM documented in this encounterSt. Mary'[facility]10-[facility]-2024 History of Present illness Narrative* Chucky Zepeda APRN.CNP - 06/17/2024 3:04 PM EDT Subjective HPI [...] as of 01/2020 per ER report from [facility]. Palpitation Primary cardiomyopathy (HCC) Pulmonary emphysema (HCC) SVT (supraventricular tachycardia) (HCC) Tremor PAST SURGICAL HISTORY Procedure Laterality Date 2D ECHO (EXEP) 01/19/2017 EF=55%, mild LVH, LA enlargement, UT and TI, Diastolic dysfunction. 2D ECHO (EXEP) [...] for antiviral therapies. GFR 68 creatinine 0.92 Septemberof this year. Patient was educated on supportive [...] c are. This note was generated using Bitrockr software. It may contain errors in wording, punctuation, or spelling. Chucky Zepeda APRN.DONNA documented in this encounterSt. Mary'[facility]09-27-2024 Telephone encounter Note * Telephone Encounter - Edilia Paige RN - 06/03/2024 3:59 PM EDT Pt called in for lab results. Let her know, Labs overall are stable. No changes needed at this time and to keep next scheduled appointment. Thanks. Nora Crespo APRN.DONNA Paige RN [facility]09-27-2024 Miscellaneous Notes* Telephone Encounter - Edilia Paige RN - 06/03/2024 3:59 PM EDT Pt called in for lab results. Let her know, Labs overall are stable. No changes needed at this time and to keep next scheduled appointment. Thanks. Nora Crespo APRN.DONNA Paige RN documented in this encounterSt. Mary'S [facility]09-23-2024 Telephone encounter Note * Telephone Encounter - Hallie Gonzalez RN - 05/30/2024 5:56 PM EDT Spoke with patient. Given message from provider's office. Patient verbalizes understanding. Hallie Gonzalez RN [facility]09-23-2024 Miscellaneous Notes* Telephone Encounter - Hallie Gonzalez [...] prescribed her oxycodone (Xtampza ER) by the [facility] [place] [place] provider. Can we verify if they would take over prescribing of thisnow that she is discharged from [facility]. Thanks documented in this encounterSt. Mary'S [facility]09-23-2024 Telephone encounter Note * Telephone Encounter - Nora Crespo APRN.CNP - 05/30/2024 4:03 PM EDT Noted and agree, given the high MEDs and even higher with the use of both the norco and the XtampzaI do agree this should be addressed with pain management. [facility]09-23-2024 Telephone encounter Note* Telephone Encounter - Marias Mcdermott LPN - 05/30/2024 3:41 PM EDT [...] appointment and discuss both pain medication usage. [facility]09-23-2024 Telephone encounter Note* Telephone Encounter - Nora Crespo APRN.CNP - 05/30/2024 2:43 PM EDT Patient has been seeing Dr. Rai for pain mgmt and was being prescribed her oxycodone (Xtampza ER) by the [facility] [place] [place] provider. Can we verify if they would take over prescribing of thisnow that she is discharged from [facility]. Thanks [facility]09-23-2024 Instructions* Patient Instructions* Nora Crespo APRN.DONNA - 05/30/2024 1:25 PM EDT Get blood [...] Keep scheduled follow up. documented in this encounterSt. Mary'[facility]09-[facility] History of Present illness Narrative* Nora Crespo APRN.CNP - 05/30/2024 12:43 PM EDT SUBJECTIVE Marcia [...] follow up, was [facility] [facility] for assisted living 3 days ago. Accompanied [...] Johnson - 12/30/2005 (M priority) Abdominal Aneurysm ([facility]) - 04/11/2024 Jovany (Acute Kidney Injury) ([facility]) - 12/23/2023 Abdominal Pain - 12/20/2023 Anaphylaxis Due to Contrast Media - 12/20/2023 S/P Cholecystectomy - 12/20/2023 Postoperative Abscess - 12/20/2023 Postoperative Bile Leak - 12/20/2023 Copd (Chronic Obstructive Pulmonary Disease) ([facility]) - 12/20/2023 Chronic Combined Systolic and Diastolic Chf (Congestive Heart Failure) ([facility]) - 12/20/2023 Coronary Artery Disease Due to Lipid Rich Plaque - 12/13/2023 Pulmonary Emphysema ([facility]) - 12/13/2023 Obesity, Class I, Bmi 30-34.9 - 12/11/2023 Choledocholithiasis - 12/07/2023 Chronic Back Pain - 12/07/2023 Compression Fracture of Thoracic Vertebra ([facility]) - 12/01/2023 Diabetes Mellitus ([facility]) - 01/13/2023 Cardiomyopathy in Disease Classified Elsewhere ([facility]) - 01/13/2023 Supraventricular Tachycardia ([facility]) - 01/13/2023 Oab (Overactive Bladder) - 02/18/2019 [...] appointment.. Nora Crespo APRN-DONNA documented in this encounterSt. Mary'S [facility]09-[facility]-2024 Telephone encounter Note * Telephone Encounter - Gabriel Galvan MD - 05/24/2024 9:06 PM EDT Has follow up with Nora this month Okayed meds with refills for 6 months except for prn meds since not sure how often needs to take and only 14 days worth of lorazepam since prior RX was for prn use, and at [facility] they were giving it toher TID routinely. Can determine with Nora if needs to be kept on TID routinely. Not sure if needed Tylenol RX and if all three as on the med list from [facility] for prn use. The following approved medication [...] by mouth once daily. Authorizing Provider: GABRIEL GLAVAN DULoxetine (CYMBALTA) 30 mg capsule 30 capsule [...] hour period. Authorizing Provider: GABRIEL GALVAN MD [facility]09-17-2024 Miscellaneous Notes* Telephone Encounter - Gabriel Galvan MD - 05/24/2024 9:06 PM EDT Has follow up with Nora this month Okayed meds with refills for 6 months except for prn meds since not sure how often needs to take and only 14 days worth of lorazepam since prior RX was for prn use, and at [facility] they were giving it toher TID routinely. Can determine with Nora if needs to be kept on TID routinely. Not sure if needed Tylenol RX and if all three as on the med list from [facility] for prn use. The following approved medication [...] meals and at bedtime. Authorizing Provider: GABRIEL GAVLAN sodium phosphate-sodium bisphosphate (FLEET) enema 1 Each [...] - 05/24/2024 2:42 PM EDT Isaak from [facility] and states that patient is being admitted there from [facility]. Isaak is faxing over medication list from [facility] and is asking if provider can send patient's prescriptions to [facility]? Please review and advise, Linh Villalobos RN documented in this encounterSt. Mary'[facility]09-[facility]-2024 Telephone encounter Note * Telephone Encounter - Linh Villalobos RN - 05/24/2024 2:42 PM EDT Isaak from [facility] and states that patient is being admitted there from [facility]. Isaak is faxing over medication list from [facility] and is asking if provider can send patient's prescriptions to [facility]? Please review and advise, Linh Villalobos, RN [facility]08-19-2024 History of Present illness Narrative* Darrell Tejada [...] some form of surgery. documented in this encounterSt. Mary'S [facility]08-[facility]-2024 Instructions* Patient Instructions* Nora Crespo APRN.CNP - 04/11/2024 2:09 PM EDT Reschedule with GI. Schedule with general surgery. Eat small, frequent meals. Try to limit any spicy foods and caffeine containing beverages and carbonated beverages. Keep taking medications as prescribed. documented in this encounterSt. Mary'[facility]08-[facility] History of Present illness Narrative* Nora Crespo APRN.PILOT CAPTAIN - 04/11/2024 1:58 PM EDT SUBJECTIVE Marcia [...] discussed concerns of continued pain. Resident at [facility]. Had cholecystectomy and abdominal abscess in 12/2023. [...] Johnson - 12/30/2005 (M priority) Abdominal Aneurysm ([facility]) - 04/11/2024 Jovany (Acute Kidney Injury) ([facility]) - 12/23/2023 Abdominal Pain - 12/20/2023 Anaphylaxis Due to Contrast Media - 12/20/2023 S/P Cholecystectomy - 12/20/2023 Postoperative Abscess - 12/20/2023 Postoperative Bile Leak - 12/20/2023 Copd (Chronic Obstructive Pulmonary Disease) ([facility]) - 12/20/2023 Chronic Combined Systolic and Diastolic Chf (Congestive Heart Failure) ([facility]) - 12/20/2023 Coronary Artery Disease Due to Lipid Rich Plaque - 12/13/2023 Pulmonary Emphysema ([facility]) - 12/13/2023 Obesity, Class I, Bmi 30-34.9 - 12/11/2023 Choledocholithiasis - 12/07/2023 Chronic Back Pain - 12/07/2023 Compression Fracture of Thoracic Vertebra ([facility]) - 12/01/2023 Diabetes Mellitus ([facility]) - 01/13/2023 Cardiomyopathy in Disease Classified Elsewhere ([facility]) - 01/13/2023 Supraventricular Tachycardia ([facility]) - 01/13/2023 Oab (Overactive Bladder) - 02/18/2019 [...] medications.. Nora Crespo APRN-DONNA documented in this encounterSt. Mary'[facility]07-[facility] Telephone encounter Note * Telephone Encounter - Marisa Mcdermott LPN - 03/21/2024 11:35 AM EDT PATIENT's daughter NOTIFIED OF SAME. [facility]07-15-2024 Miscellaneous Notes* Telephone Encounter - Marisa Mcdermott [...] to keep that appointment. documented in this encounterSt. Mary'[facility]07-[facility]-2024 Telephone encounter Note * Telephone Encounter - [...] to be sure to keep that appointment. [facility]07-12-2024 History of Present illness Narrative* Sonia Mejias [...] PATIENT PRESENTS WITH AN IMPLANTABLE OR ATTACHED PROPERTY ADMINISTRATOR: No RADIOLOGY DEPARTMENT: CT; Exam(s) Completed: Abdomen/Pelvis PERIPHERAL IV DATA: Not applicable SIGNED BY: RT Rhett(R) March 18, 2024 4:10 PM documented in this encounterSt. Mary'S [facility]07-[facility]-2024 Telephone encounter Note * Telephone Encounter - Marisa Mcdermott LPN - 03/14/2024 4:19 PM EDT Kathie NOTIFIED OF SAME. Will schedule with Dr. Tejada for sometime after the CT scan. [facility]07-08-2024 Miscellaneous Notes* Telephone Encounter - Marisa Mcdermott [...] - 03/14/2024 2:35 PM EDT Kathie with [facility] calling for clarification. 1)Pt started on Pepcid. Does she need to stop Omeprazole? 2)Pt scheduled with [facility]. Does pt still need to see Dr. Tejada ? Please advise Kathie [phone]. Danna Centeno LPN documented in this encounterSt. Mary'S [facility]07-08-2024 Telephone encounter Note * Telephone Encounter - Nora Crespo APRN.CNP - 03/14/2024 3:28 PM EDT She can continue the Omeprazole along with taking the Pepcid. She should still see Dr. Tejada in case her pain is a reoccuring abscess as she would need surgical services in that case. [facility]07-08-2024 Telephone encounter Note* Telephone Encounter - Danna Centeno LPN - 03/14/2024 2:35 PM EDT Kathie with [facility] calling for clarification. 1)Pt started on Pepcid. Does she need to stop Omeprazole? 2)Pt scheduled with [facility]. Does pt still need to see Dr. Tejada ? Please advise Kathie [phone]. Danna Centeno LPN [facility]07-08-2024 Instructions* Patient Instructions* Nora Crespo APRN.CNP - 03/14/2024 12:47 PM EDT Get blood work today. Set up the CT scan of the abdomen. Schedule follow up with Dr. Tejada. Start the Pepcid. Increase melatonin to 10 mg nightly. documented in this encounterSt. Mary'[facility]07[facility] History of Present illness Narrative* Nora Crespo APRN.DONNA - 03/14/2024 11:53 AM EDT SUBJECTIVE Marcia [...] a 68 year old female. Staying [facility]. She is an established patient of Gabriel [...] Dr. Martinez for GI. Xray done at [facility] showed pneumonia. Treated by [facility] provider for pneumonia. Her medications were reviewed [...] 12/30/2005 (M priority) Jovany (Acute Kidney Injury) ([facility]) - 12/23/2023 Abdominal Pain - 12/20/2023 Anaphylaxis Due to Contrast Media - 12/20/2023 S/P Cholecystectomy - 12/20/2023 Postoperative Abscess - 12/20/2023 Postoperative Bile Leak - 12/20/2023 Copd (Chronic Obstructive Pulmonary Disease) ([facility]) - 12/20/2023 Chronic Combined Systolic and Diastolic Chf (Congestive Heart Failure) ([facility]) - 12/20/2023 Coronary Artery Disease Due to Lipid Rich Plaque - 12/13/2023 Pulmonary Emphysema ([facility]) - 12/13/2023 Obesity, Class I, Bmi 30-34.9 - 12/11/2023 Choledocholithiasis - 12/07/2023 Chronic Back Pain - 12/07/2023 Compression Fracture of Thoracic Vertebra ([facility]) - 12/01/2023 Diabetes Mellitus ([facility]) - 01/13/2023 Cardiomyopathy in Disease Classified Elsewhere ([facility]) - 01/13/2023 Supraventricular Tachycardia ([facility]) - 01/13/2023 Oab (Overactive Bladder) - 02/18/2019 [...] medications.. Nora Crespo APRN-DONNA documented in this encounterSt. Mary'[facility]05[facility] Telephone encounter Note * Telephone Encounter - Isaak Yuan - 01/18/2024 11:24 AM EDT Per [facility], Ct was order with Oral and IV contrast and patient is allergic to contrast. They stated she can be done in [place] with OUT contrast, or if you need contrast, we con do this as long as she has the 13 hr Benadryl/Steroid prep at a hospital setting like [facility]. Ple ase advise. [facility]05-13-2024 Miscellaneous Notes* Telephone Encounter - Isaak Yuan - 01/18/2024 11:24 AM EDT Per [facility], Ct was order with Oral and IV contrast and patient is allergic to contrast. They stated she can be done in [place] with OUT contrast, or if you need contrast, we con do this as long as she has the 13 hr Benadryl/Steroid prep at a hospital setting like [facility]. Ple ase advise. documented in this encounterSt. Mary'[facility]04[facility] History of Present illness Narrative* Darrell Tejada [...] a recurrent abscess forming. documented in this encounterSt. [facility]04[facility]21[facility]24 [facility] 12-26-2023 NoteHNO ID: [id number] Author: JEF HAONG, WENDY Service: ? Author Type: Registered Nurse Type: Nursing Progress Note Filed: 12/26/2023 21:39 Note Text: 2106: Page sent to hospitalist notifying pt requesting maalox for upset stomach. See new [facility]04-20-2024 [facility]04-19-2024 [facility]04-18-[facility]24 [facility]04-17-[facility]24 [facility] 12-23-2023 [facility]04-17-2024 [facility]04-17-2024 History of Present illness Narrative* Keegan Israel MD - 12/23/2023 11:52 AM EDT Images from the original note were not included. [facility] Outpatient Parenteral Antimicrobial Therapy (OPAT) Start Form Patient Info Patient MRN Patient Name Address Date of [id number] Marcia Mascorro [address] [facility] [address] 1955 Start Date 12/23/2023 Physician Group [facility]_id [...] Appointment type Keegan Israel MD In-person Address [address] [place] [address] documented in this encounterSt. Mary'[facility]04-17-2024 Miscellaneous Notes* Telephone Encounter - Rula Hernandez RN - 12/23/2023 10:08 AM EDT FYI: Naty with [facility] calls to let provider know that patient was seen at [facility] on 12/19/2023 for abdominal pain and transferred on 12/20/2023 to [facility]. Patient currently admitted to [facility] for Abdominal Abscess. Notes available in [facility]. Closing encounter. Rula Hernandez RN documented in this encounterSt. Mary'[facility]04-16-[facility]24 [facility] 12-21-2023 [facility]04-13-2024 Hospital Discharge instructions Follow Up Care 12/19/2023 21:17:01 With:Follow up with primary care provider Address:Unknown When:2-4 days [place] 04-13-2024 Note ORIGINAL EXAMINATION: CT OF THE [...] Sign Date: 12/19/2023 11:05:33 PM Ordering Provider: [facility]04-13-2024 Note Sinus rhythm Consider anterolateral infarct Electronic Signature: MERLINE CHRISTENSEN DO 12/19/2023 21:40:53[place] 04-06-2024 [facility]04-05-2024 [facility]04-04-[facility]24 [facility]04-03-2024 Miscellaneous Notes* Telephone Encounter - Gabriel Galvan MD - 12/09/2023 8:51 PM EDT Noted * Telephone Encounter - Elsy Sanz RN - 12/09/2023 1:55 PM EDT Ned Callejas renewable energy division manager calling as a courtesy to update PCP that patient has been admitted to [facility] since 11/30/23 with DX of HTN. Pt to have scheduled gallbladder surgery. States pt also has prior T 7 fracture that occurred after a fall at nursing facility 3-4 weeks ago. No call back needed. Thank you. documented in this encounterSt. Mary'[facility]04-03-2024 NoteHNO ID: [id number] Author: CARLA SILVA, RN Service: ? Author Type: Registered Nurse Type: Nursing Progress Note Filed: 12/09/2023 15:34 Note Text: Dr willams aware sbp is 177 after 2 doses of apresoline and 3 doses of fentanyl. Ok to go to [facility]04-03-2024 [facility]04-03-2024 Note [id number] [facility]04-01-2024 [facility] 12-07-2023 [facility]04-01-2024 [facility]03-31-2024 Note [facility] [id number] History of Past illness Narrative* Problem Noted Date Diagnosed Date Resolved Date Intractable pain 12/05/2023 12/07/2023 LV (left ventricular) mural thrombus 12/01/2023 12/07/2023 Abdominal pain 12/01/2023 12/07/2023 Acute respiratory failure with hypoxia 12/01/2023 12/07/2023 Opioid dependence 01/15/2020 09/23/2022 Overview: In 180 as of 01/2020 per ER report from [facility]. Encounter for screening mamm ogram for [...] of this encounter (statuses as of 12/10/2023) [facility]30[facility] History of Past illness Narrative* Problem Noted Date Diagnosed Date Resolved Date Intractable pain 12/05/2023 12/07/2023 LV (left ventricular) mural thrombus 12/01/2023 12/07/2023 Abdominal pain 12/01/2023 12/07/2023 Opioid dependence 01/15/2020 09/23/2022 Overview: In 180 as of 01/2020 per ER report from [facility]. Encounter for screening mamm ogram for [...] of this encounter (statuses as of 12/23/2023) [facility]-30-[facility] History of Past illness Narrative* Problem Noted Date Diagnosed Date Resolved Date Intractable pain 12/05/2023 12/07/2023 LV (left ventricular) mural thrombus 12/01/2023 12/07/2023 Abdominal pain 12/01/2023 12/07/2023 Opioid dependence 01/15/2020 09/23/2022 Overview: In 180 as of 01/2020 per ER report from [facility]. Encounter for screening mamm ogram for [...] of this encounter (statuses as of 12/24/2023) [facility]03-30-[facility]03-29-[facility] 12-03-2023 NoteCleveland [id number] NoteCleveland [id number] Note [facility] ClinicLsifhlco35-96-0256 NoteCleveland ClinicKkriogiw04-68-6908 History of Present illness Narrative* Pascale Fonseca, RT(R) - 11/30/2023 11:09 PM EDT Radiology [...] PATIENT PRESENTS WITH AN IMPLANTABLE OR ATTACHED PROPERTY ADMINISTRATOR: No RADIOLOGY DEPARTMENT: General X-ray: Exam(s) Completed: Chest X-Ray PERIPHERAL IV DATA: Not applicable SIGNED BY: RT Jt(R) November 30, 2023 11:09 PM documented in this encounterSt. Mary'S [facility]03-20-2024 History of Present illness Narrative* Gabriel Galvan MD - 11/25/2023 5:50 PM EDT [...] Dr. Nayak COPD (chronic obstructive pulmonary disease) ([facility]) Depression Essential hypertension, benign Sees Dr. Best GERD (gastroesophageal reflux disease) Incontinence 07/07/2014 Opioid dependence ([facility]) 01/15/2020 In 180 as of 01/2020 per ER report from [facility]. Current Outpatient Medications Medication Sig Cholecalciferol, [...] ([facility]) 01/19/2017 EF=55%, mild LVH, LA enlargement, UT and TI, Diastolic dysfunction. 2D ECHO ([facility]) [...] needed - Constipation issue - Consult with manager planning for ankle weakness and peripheral neuropathic pain [...] two months - Consultation with Dr. Hanna (manager planning) scheduled - Follow-up CT scan ordered by Dr. Fraire - Follow-up in three months, alternating between myself and Dr. Fraire I spent a total of 41 minutes on the date of the service which included [id number] patient care, completing clinical documentation, obtaining and/or reviewing separately obtained history, performing a medically appropriate examination, counseling and educating the patient/family/caregiver, and ordering medications, tests, or procedures. Gabriel Galvan MD documented in this encounterSt. Mary'[facility]03-14-2024 History of Present illness Narrative* Penny Francois [...] Patient scheduled/pended labs: Follow-up Appointment 11/25/2023 in [facility] with GABRIEL GALVAN - Follow Up, please review HCCs 12/14/2023 in [facility] with CRISS BRIONES - hypertension, heart disease 01/12/2024 in [facility] INDP with DRAKE YORK - stomach issues, bioduct stint HCC related Navigation Signature: Penny Francois November 19, 2023 12:43 PM documented in this encounterSt. Mary'[facility]01-23-2024 Discharge summary Author Waqas Hart [facility] September 29, 2023 9:19pm Note Date/Time September 29, 2023 6 :07pm [facility] Medical Records Department [address] [place] [address] Emergency Department Summary 09/29/23 MR#: [id number] Acct: [id number] Name: MARCIA MASCORRO Vale Rep #:[id number] : 1955 67 From: Waqas Hart MD [...] EMS with continued chest pain and pressure. [facility] Medical History Anxiety and depression Arthritis 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 Back pain [...] feltthat she could be return to the shelter facility. I do not feel she requires admission at this time. She continued to complain of pain so she was administered an intramuscular injection of Bentyl. I feel she can be dischargedto follow-up. Disposition is discharged to shelter facility in stable condition. History & Record [...] 74.3 H Lymph % (Auto) 18.9 L Rogers % (Auto) 5.8 Eos % (Auto) 0.2 [...] Signed: Bentley Khan MD at 18:47 EST , Abdomen/Pelvis CT 09/29/23 18:39 IMPRESSION: Stable [...] Provider: Danny Green Referrals: Nora Crespo NP, NP-C [Non-Staff -Ordering Privileges] - As soon as possible Activity Restrictions/Additional Instructions: Follow-up with your primary care provider, and with Dr. Martinez as soon as possible. Disposition Disposition: Home, Self Care What to do if you have Problems For any increased pain, shortness of breath, bleeding, nausea or vomiting, chestpain, or any unexpected problems, contact your Primary Care Provider. Call [facility] ([phone]) or report to the closest Emergency Room. Call 911 if necessary. 09/29/232118 <Electronically signed by Waqas Hart MD> Cosigner Signature (if applicable): CC: Dr. Danny Green MD ~ Signed [facility] Work Phone: 1(913) 325-152801-22-2024 History and physical note Author Rakesh Martinez [facility] September 28, 2023 9:17am Note Date/Time September 28, 2023 9 :17am [facility] Medical Records Department [address] [place] [address] History & Physical Exam 09/28/2316 MR#: [id number] Acct: [id number] Name: MARCIA MASCORRO Rep #:[id number] : 1955 67 From: Rakesh Martinez DO PCP: FATMATA Quevedo Status:[facility] Location: [place] [address] HPI - General HPI Narrative MARCIA MASCORRO, is a 67 F who presents [facility] Medical History Anxiety and depression Arthritis 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 Back pain [...] CC: FATMATA Crespo; Rakesh Martinez DO~ Signed [facility] Work Phone: 1(172) 602-477701-22-2024 Procedure [facility] 09-28-2023 Procedure [facility]11-21-2023 History and physical note Author Rakesh Martinez [facility] July 28, 2023 11:09am Note Date/Time July 28, 2023 11:07am [facility] Medical Records Department [address] [place] [address] History & Physical Exam 07/28/23 1107 MR#: [id number] Acct: [id number] Name: MARCIA MASCORRO Rep #:[id number] : 1955 67 From: Rakesh Martinez DO PCP: FATMATA Quevedo Status:REG [facility] Location: [place] [address] History and Physical Date of Admission: 07/28/23 [...] depression; HTN; HLD; osteoporosis; cardiomyopathy; CHF; PVD [facility] ED 5.. with retrosternal pain/pressure. Workup without concern. Discharged with Carafate and Zofran. [facility] ED 5.. with right sided abdominal pain/ache with some vaginal spotting despite total hysterectomy history. ? Biochemical CBC, CMP, lipase without pertinent abnormality. ? AST L12-ALT 15-AP H196 ? CT abd/pel intraluminal density within gallbladder; diverticulosis; stable aortic aneurysm ? US RUQ normal liver and gallbladder and pancreas. *[facility] established 05.22.23 Resident at [facility] where she did receive ST services. Postprandial [...] Appearance: average body habitus and well nourished [facility] Head: normal to inspection Ears: hearing [...] Affect: normal affect Quality Reporting Tobacco Screening ([facility] 138) Smoking Status: Current some day smoker [...] looking for the possibility of placement to shelter facility. This is a complex case. The [...] no clinicalchanges since date of exam. 07/28/23 1107 <Electronically signed by Rakesh Martinez DO> Cosigner Signature (if applicable): CC: FATMATA Crespo; Rakesh Martinez DO~ Signed [facility] Work Phone: 1(303) 243-641711-21-2023 Procedure [facility] 07-28-2023 Procedure [facility]10-18-2023 Procedure note [facility]10-18-2023 Procedure [facility] 05-04-2023 Miscellaneous Notes* Telephone Encounter - Marisa [...] advise, Linh Villalobos RN documented in this encounterSt. Mary'S [facility]08-25-2023 History of Present illness Narrative* Cordell Kirkpatrick [...] Visit completed when applicable. Penny Alvarez, EMG Tech Cordell Kirkpatrick DO documented in this encounterSt. Mary'S [facility]08-24-2023 Miscellaneous Notes* Telephone Encounter - Randee Dobbs [...] to wrong pharmacy. Patient has to use [facility] pharmacy which is pharmacy for [facility] which she currently is at. Patient also requesting physical therapy orders to be faxed to [facility] [phone]. Faxed as requested. Linh Villalobos RN * [...] testing is needed. * Telephone Encounter - Edilia Paige RN - 04/27/2023 10:02 AM EDT Pt called and is notified of providers results and instructions. Pt voices understanding. Pt couldn't remember who she was told to go to for Nephrology. Per the Nephrology consult, Pt didn't want totravel to [facility] or any other location. Faxed over orders to [facility] (Dr. Ochoa).. I assume orders have already been sent over, so let Pt know [facility] should be calling her, or let her know she could call in toschedule. Pt states she isn't taking any supplements or anything with Vit D in it. Edilia Paige, WENDY * Telephone Encounter - Nora Crespo APRN.CNP [...] comparison to past numbers. documented in this encounterSt. Mary'S [facility]08-18-2023 Miscellaneous Notes* Telephone Encounter - Ania Yee OCCA - 04/24/2023 2:41 PM EDT In review of patient chart, she was seen in office 04/15/23 with Andrew Crespo. Closing encounter as nothing further at this time. JERRI Tay * Telephone Encounter - Lyndsey Acevedo APRN.CYCLE CONSULTANT - 04/06/2023 2:17 PM EDT See below. Appears she was admitted from [facility] perhaps, did address in my office note in Jan 13 2023. Check to see if addressed at [facility]. My addendum to note 01/15/2023: ADD: January 15, 2023 Message from daughter indicating interest in SNF. Will place consult for SW. If admitted /ER visit again would endorse seeing SW at [facility], referral to SNF from hospital. Lyndsey Acevedo APRN.CNS She returned to ER [facility] 01/14/2023 and 01/16/2023. I did reach out to our social media intern. Her note 01/15/2023 excerpted: Tiffani spoke with patient daughter Marleny in regards to patient needing either SNF or Assisted Living.Marleny notes that patient has been in and out of hospital lately. Patient had cameron declining SNF/ALand Marleny notes that she is now open to going to a facility. Tiffani discussed with daughter if patient has client care representative through [facility] [facility] [employer]. Marleny notes that she is not sure if patient has a client care representative through [employer]. Sw encouraged Marleny to check to see as a client care representative through [employer] could help with assisting patient with admit to AL. They could also help with level of care assessment to see if patient would qualify for SNF or AL. Tiffani provided Marleny with [facility] [employer] number to reach out and explore care services. Sw noted different SNF/Al such as [facility], [facility], [facility]. Discussed [facility] Older Adult Guide on their website. Marleny notes that she does not knowabout the different SNF/AL in the community. Sw noted that the Older Adult Resource Guide [...] - 04/06/2023 1:11 PM EDT Charlene from [facility] states pt has been in a shelter facility since 01/18/23 however [facility] does mot have an authorization on file. Pt was not authorized prior to going in to facility. Charlene is requesting provider to add to med record notes why pt needs skilled nsg services & how long pt it expected to be in facility. Maureen Hassan LPN documented in this encounterSt. Mary'S [facility]08-11-2023 Miscellaneous Notes* Telephone Encounter - Lyndsey Acevedo APRN.CNS - 04/17/2023 3:36 PM EDT OK * Telephone Encounter - Amber Burroughs - 04/17/2023 12:38 PM EDT Marcia Mascorro is calling Nora Mahendra, LEAD GENERATION SPECIALIST.PILOT CAPTAIN today with concern regarding the ear drops that were sent to [facility] have not been filled and patient stating that it should be resent please to [facility] [place] [facility] the pharmacy is [facility] Call pharmacy [phone] Note: I have loaded that pharmacy in patient chart Patient also stating that she was to start the eardrops Thursday and today she still does not havethat RX. Patient has been identified by name and birthdate. Duration of symptoms: days Person calling: self Call patient at: on cell [phone] (home) [phone] (cell) Was an appointment scheduled: No Closing statement: Results or non-symptom based questions: Thank you for calling [facility], your call will be returned within the next business day. Amber Le documented in this encounterSt. Mary'S [facility]08-10-2023 Miscellaneous Notes* Telephone Encounter - Elsy Sanz RN - 04/16/2023 1:52 PM EDT Margaret-nurse at [facility] calling to request patient's recent OV note with Nora Crespo CNP from 04/15/23 be faxed to her. Patient currently resides there. Faxed as requested to [phone]. Elsy Sanz RN documented in this encounterSt. Mary'S [facility]06-13-2023 Procedure [facility]05-15-2023 History of Present illness Narrative* GEORGETTE Khanna - 01/19/2023 12:13 PM EDT Tiffani spoke with patient daughter Marleny and she reports that patient was admitted to [facility] thursday. * GEORGETTE Khanna - 01/15/2023 9:59 AM EDT Sw called patient to discuss referral request referral regarding SNF. No answer on home phone. Mobile phone rings and no vmail to leave message. documented in this encounterSt. Mary'S [facility]05-12-2023 Miscellaneous Notes* Telephone Encounter - Marisa Mcdermott [...] states patient will be admitting to [facility] this afternoon, which does not allow smoking and pt is a smoker. Marleny calling toask if Lyndsey LOCKWOOD would send script for nicotine patches for pt to [facility]? Please call Marleny with any updates. [phone]. Thank you. documented in this encounterSt. Mary'S [facility]05-12-[address] Byers [facility] January 16, 2023 1:01pm Note Date/Time January 16, 2023 8:14a m [facility] Medical Records Department [address] [place] [address] Emergency Department Summary 01/16/23 MR#: [id number] Acct: [id number] Name: LUIS FNERYValentin Collazo Rep #:[id number] : 1955 67 From: Linus Byers MD [...] looking for the possibility of placement to shelter facility. This is a complex case. The [...] of these symptoms and an elevated troponin. 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 She startedthis process with the social media intern and staff at [employer] where she is an employee, and that [...] the patient is not likely qualify for shelter, and pre-CERT would be necessary anyway, but [...] % (Auto) 57.9 Lymph % (Auto) 29.3 Rogers % (Auto) 8.2 Eos % (Auto) 3.3 [...] your Primary Care Provider. Call [facility] ([phone]) or report to the closest Emergency Room. Call 911 if necessary. 01/16/23 1301 <Electronically signed by Linus Byers MD> Cosigner Signature (if applicable): CC: Dr. Gabriel Galvan MD ~ Signed [facility] Work Phone: 1(605) 452-149205-11-2023 Miscellaneous Notes* Telephone Encounter - Lyndsey Acevedo APRN.CNS - 01/15/2023 4:40 PM EDT Noted * [...] Tiffani discussed with daughter if patient has client care representative through [facility]. Marleny notes that she is not sure if patient has a client care representative through [employer]. Sw encouraged Marleny to check to see as a client care representative through [employer] could help with assisting patient with admit to AL. They could also help with level of care assessment to see if patient would qualify for SNF or AL. Sw provided Marleny with [facility] number to reach out and explore care services. Tiffani noted different SNF/Al such as [facility], [facility], [facility]. Discussed [facility] Older Adult Guide on their website. Marleny notes that she does not knowabout the different SNF/AL in the community. Tiffani noted that the Older Adult Resource Guide has listing in the back of the different facilities. Marleny notes that will be helpful in regards to looking at different facility options for patient. Marleny states that she will start with [facility] and see what help [...] find out for patient. documented in this encounterSt. Mary'[facility]05-10-[address] Reyes [facility] January 14, 2023 7:13pm Note Date/Time January 14, 2023 2:17p m [facility] Medical Records Department [address] [place] [address] Emergency Department Summary 01/14/23 MR#: [id number] Acct: [id number] Name: MARCIA MASCORRO Rep #:[id number] : 1955 67 From: Juan David Chambers [...] this began when she was at a assisted while visiting her family. She states I am afraid I am bleeding internally. She does not have any dizziness lightheadedness, shortness of breath. She denies black or bloody stools. Patient is on Plavix and Xarelto. No fevers, chills. No urinary complaints. 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 Call [facility] ([phone]) or report to the closest Emergency Room. Call 911 if necessary. 01/14/231912 <Electronically signed by Juan David Chambers DO> Cosigner Signature (if applicable): CC: Dr. Gabriel Galvan MD ~ Signed [facility] Work Phone: 1(494) 283-648505-09-2023 Instructions* Patient Instructions* Lyndsey Acevedo APRN.CYCLE CONSULTANT - 01/13/2023 3:05 PM EDT Please take your medications as ordered. These have been sent to [facility] pharmacy for you today Be sure to increase your pantoprazole from once a day to twice a day. Add sucralfate before meals and at bedtime for now until gone. Please make an appointment with the following providers: [facility] follow-up [phone] 2- Dr Martinez tip out worker 3-Dr Don Dias -whip operator 4- Vascular doctor documented in this encounterSt. Mary'S [facility]05-09-2023 History of Present illness Narrative* Lyndsey Acevedo APRN.MANDIE - 01/13/2023 2:20 PM EDT Transitional Care Management Progress Note The patients TCM visit was performed within the 14 days of discharge. Patient's Date of discharge: 01/04/2023 Date of initial coordinator contact after discharge:01/05/2023 Discharge diagnosis: shortness of breath Medication review completed Yes Lyndsey Acevedo APRN.MANDIE Provider Documentation: In follow-up of hospitalization, Marcia [...] not severe. No prior IM visits. Cardiology: [facility] Unit[facility] CNP. Presents today for emergency department follow-up visit. [facility] [...] Impression nausea vomiting generalized weakness and anxiety. [facility] Leatha Zimmer [address] Today reports epigastric pain [...] Gastroenterology follow-up: Has not scheduled Follow-up with manager plan. Has not scheduled Follow-up with whip operator. Has not scheduled PAST MEDICAL HISTORY: [...] complication, without long-term current use of insulin ([facility]) - ICD9: 250.80, ICD10: E11.69 4. Cardiomyopathy in disease classified elsewhere ([facility]) - ICD9: 425.8, ICD10: I43 5. Supraventricular tachycardia ([facility]) - ICD9: 427.89, ICD10: I47.1 6. Acute exacerbation of chronic obstructive pulmonary disease (COPD) ([facility]) - ICD9: 491.21, ICD10: J44.1 7. LV (left ventricular) mural thrombus - ICD9: 410.90, ICD10: I51.3 8. Chest pain, unspecified type - ICD9: 786.50, ICD10: R07.9 9. NSTEMI (non-ST elevated myocardial infarction) ([facility]) - ICD9: 410.70, ICD10: I21.4 10. HFrEF (heart failure with reduced ejection fraction) ([facility]) - ICD9: 428.20, ICD10: I50.20 11. [...] She needs to be followed up with [facility]ology and have follow up echocardiogram regarding her thrombus. Continues with epigastric pain, will continue with PPI twice daily as prescribed at discharge and add Carafate for now. Needs to schedule appointment with Dr. Martinez. COPD exacerbation, recommend follow-up with whip operator. 3 mo.fu Lyndsey Acevedo APRN.CNS or Nora Crespo CNP. 6 mo follow up Gabriel Galvan MD. Lyndsey Acevedo APRN.CNS January 13, 2023 8:01 AM documented in this encounterSt. Mary'[facility]05-06-[address] Aguilera [facility] January 10, 2023 3:56pm Note Date/Time January 10, 2023 1:17pm [facility] Medical Records Department [address] [place] [address] Emergency Department Summary 01/10/23 MR#: [id number] Acct: [id number] Name: MARCIA MASCORRO Rep #:[id number] : 1955 67 From: Danny AVILEZ PCP: [...] her to come here to be evaluated. 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 Differential included ACS, UT, pneumonia. Patient did receive a full cardiac [...] is no evidence to suspect any ACS, UT. Patient showing no difficulty breathing, no evidence of any CHF exacerbation. Repeat troponin was 61, she is trending down. There is no evidence of any ongoing cardiopulmonary pathology at this time. Patient needs to continue to follow-up with her manager plan, as well as her other doctors. She needs to continue to take her Xarelto as well as her other medications. She is verbally understanding. All questions answered, patient stable for discharge <Dr. Adryan Aguilera, DO - Last Filed: 01/10/23 15:56> [facility] Narrative Medical decision making narrative: I have [...] % (Auto) 59.7 Lymph % (Auto) 29.8 Rogers % (Auto) 6.4 Eos % (Auto) 3.0 [...] (Auto) Neut % (Auto) Lymph % (Auto) Rogers % (Auto) Eos % (Auto) Baso % [...] your Primary Care Provider. Call [facility] ([phone]) or report to the closest Emergency Room. Call 911 if necessary. 01/10/23 1545 <Electronically signed by Danny AVILEZ> Cosigner Signature (if applicable): 01/10/23 1556 <Electronically signed by Adryan Aguilera DO> CC: Dr. Gabriel Galvan MD ~ Signed [facility] Work Phone: 1(793) 675-565505-01-2023 Miscellaneous Notes* Telephone Encounter - Lyndsey Acevedo APRN.CNS - 01/05/2023 12:38 PM EDT Benzonatate sent * Telephone Encounter - Danna Russo Taryn ARAGON - 01/05/2023 10:08 AM EDT Spoke with pt and she was released from the hospital yesterday 12-25-22. She is requesting somethingfor cough. They did not give her anything was she was released. Her Hospital FU is not until 01-08-23with Lyndsey Acevedo. Please advise pt. Danna Centeno LPN documented in this encounterSt. Mary'[facility]05-01-2023 History of Present illness Narrative* Danna Rafaela Centeno LPN - 01/05/2023 10:00 AM EDT TRANSITION CARE MANAGEMENT (TCM) INITIAL CONTACT Steel Unloader Outreach Provider Action/FYI: Spoke with pt. Pt [...] might be hidden SUMMARY: -Pt discharged from [facility] on 01/04/23. -Admitted for: Shortness of [...] home? Yes Medical records from recent hospitalization: [facility] records have been copied and will deliver to nurse documented in this encounterSt. Mary'[facility]04-28-[address] Serrano [facility] January 02, 2023 12:39pm Note Date/Time January 02, 2023 10: 22am [facility] Medical Records Department [address] [place] [address] Emergency Department Summary 01/02/23 MR#: [id number] Acct: [id number] Name: MARCIA MASCORRO Rep #:[id number] : 1955 67 From: Clyde Serrano MD [...] which is presumed to be due to aisizhsqhg-bubc-sjh these. She does not have history of diabetes. She is presently on gabapentin. 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 Wewill treat with aspirin and contact manager plan regarding antithrombotic and anticoagulant therapy. Review of [...] follows: Interpretation: Sinus Rhythm (Rate is 72. MN interval is 130 ms. QRS durations 98 ms. QT duration 408 ms. [place] is normal. Patient has abnormal ST segment which are biphasic in V1 and V2 she has a flipped T wave in aVL. Will need old EKG for comparison. In light of this EKG finding will obtain a troponin level.) Prior: Unchanged (September 02, 2022) Follow-up EKG: Attestation: I personally reviewed and interpreted this EKG as follows: Interpretation: Sinus Rhythm (Rate is 79. MN interval 128 ms. Cures duration 100 ms. QT duration 388 ms. [place] is normal. Patient has abnormalities. Described in V1 V2 and aVL. This is unchanged from prior.) Management Discussion w/another healthcare provider: Hospitalist (Spoke with Dr. Gloria Madrid. She was made aware of cardiology recommendation.), Fulfillment Specialist (Poke to Dr. Buck. He recommended cycling enzymes since patient is on aspirin, Plavix and anticoagulant.) and Other (Spoke with son. Had multiple discussions with patient) Critical Care Time Critical Care Time: Yes Critical care time (excluding procedures): 30-74 minutes (34), Including time spent: (History, physical, documentation, interpretation laboratory results), Discussing w/Patient &/or Family/Tar And Ammonia Pump Operator (Gayle with son and patient's severaltimes regarding [...] Referrals: Sudhir Ochoa MD [Med Staff - Project Manager Senior] - Disposition Disposition: Acute Care Hospital [facility] What to do if you have Problems For any increased pain, shortness of breath, bleeding, nausea or vomiting, chestpain, or any unexpected problems, contact your Primary Care Provider. Call [facility] ([phone]) or report to the closest Emergency Room. Call 911 if necessary. 01/02/23 1239 <Electronically signed by Clyde Serrano MD> Cosigner Signature (if applicable): CC: No Primary Care Physician ~ Signed [facility] Work Phone: 1(549) 172-384703-06-2023 Miscellaneous Notes* Telephone Encounter - Linh Villalobos RN - 11/10/2022 10:54 AM EST Patient's son calls and notified of provider instructions. Son voices understanding. Linh Villalobos RN * Telephone Encounter - Marisa Mcdermott LPN - 11/07/2022 11:10 AM EST LEFT MESSAGE FOR PATIENT TO CALL OFFICE. * Telephone Encounter - Lyndsey Acevedo APRN.CYCLE CONSULTANT - 11/06/2022 1:16 PM EST He will need to go through the usual channels to obtain records. Can reschedule a visit if needed with PCP. * Telephone Encounter - Edilia Paige RN - 11/06/2022 12:30 PM EST [...] Please call and advise. documented in this encounterSt. Mary'[facility]03-02-2023 Miscellaneous Notes* Telephone Encounter - Hallie Gonzalez [...] you. Hallie Gonzalez RN documented in this encounterSt. Mary'[facility]02-06-2023 Miscellaneous Notes* Telephone Encounter - Marisa Mcdermott LPN - 10/13/2022 11:26 AM EST Spoke with Marleny and Barby from [facility] Vascular had contacted her and Marleny will verify again with her about refilling the Xarelto. * Telephone Encounter - Gabriel Galvan MD - 10/11/2022 5:42 PM EST Verify patient was able to get connected with below caller so able to keep getting Xarelto * Telephone Encounter - Edilia Paige RN - 10/10/2022 1:14 PM EST Barby with Vascular at [facility] called and reports she was trying [...] keep refilling her Xarelto. documented in this encounterSt. Mary'[facility]01-27-2023 Miscellaneous Notes* Telephone Encounter - Edilia Paige RN - 10/03/2022 8:50 AM EST Could not get a hold of Pt, and shalom not let me leave a voice mail. Pts daughter called and is notified of providers message and instructions. She voices understanding, states to keep the appointmentfor Thursday. She works in the [employer] and will have her mother come in tomorrow and get her set up. Edilia Paige RN * Telephone Encounter - Nora [...] Hallie Gonzalez RN * Telephone Encounter - Edilia Paige RN - 10/02/2022 3:51 PM EST Pt called in and reports she went to the ER for nausea and tonsillitis and they didn't do anything for her. She states she has an appointment on Thursday with Nora Crespo APRON MAN, but is asking if providerwould give her [...] a ride places. She reports she uses [facility] as her pharmacy. Please call and advise. documented in this encounterSt. Mary'[facility]01-25-2023 Miscellaneous Notes* Telephone Encounter - Nohemi Conley [...] 10/13/22. Hannah Modi LPN documented in this encounterSt. Mary'S [facility]01-24-[address] Serrano [facility] September 30, 2022 11:15pm Note Date/Time September 30, 2022 1 0:05pm [facility] Medical Records Department [address] [place] [address] Emergency Department Summary 09/30/22 MR#: [id number] Acct: [id number] Name: MARCIA MASCORRO Rep #:[id number] : 1955 66 From: Clyde Serrano MD [...] discomfort of any type. She denies dyspnea, [place] exertion, orthopnea or PND. She denies abdominal pain, nausea,vomiting or diarrhea. She denies rash or any lesions. 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 Recommendations including risk factor modification, medical therapy. Right upper quadrant ultrasound August 08, 2022?was normal. Echocardiogram 01/17/2022: Moderately dilated LV, severe segmental systolic dysfunction.? Ejection [id number]%. Dyskinetic right ventricular apex, moderate segmental dysfunction [...] Labs: Laboratory Results - last 24 hr 09/30/22 09/30/22 09/30/22 21:22 21:22 22:23 WBC 7.7 RBC 4.87 Hgb 15.4 H Hct 46.2 MCV 94.9 MCH 31.6 MCHC 33.3 RDW Std Deviation 45.0 H RDW Coeff of Sariah 12.9 Plt Count 299 MPV 9.3 Immature Gran % (Auto) 0.400 Neut % (Auto) 44.9 L Lymph % (Auto) 43.3 H Rogers % (Auto) 8.4 Eos % (Auto) 2.1 [...] Clarity Clear Urine pH 6.5 Ur Specific [place] 1.020 Urine Protein Negative Urine Glucose (UA) [...] your Primary Care Provider. Call [facility] ([phone]) or report to the closest Emergency Room. Call 911 if necessary. 09/30/222314 <Electronically signed by Clyde Serrano MD> Cosigner Signature (if applicable): CC: Dr. Sudhir Ochoa MD ~ Signed [facility] Work Phone: 1(697) 429-202201-24-2023 History of Present illness Narrative* Pascale Bello [...] 30, 2022 2:04 PM documented in this encounterSt. Mary'[facility]01-24-2023 Miscellaneous Notes* Result Encounter Note - Nora Crespo APRN.CNP - 09/30/2022 1:45 PM EST Plan to go over result at up coming follow up appointment 10/06, will likely refer to speciality ifpatient agreeable. documented in this encounterSt. Mary'S [facility]01-18-2023 Miscellaneous Notes* Telephone Encounter - Edilia Paige RN - 09/24/2022 9:12 AM EST Pt called and is notified of providers results and instructions. Pt voices understanding. Edilia Paige RN * Telephone Encounter - Nora [...] next scheduled appointment. Thanks. documented in this encounterSt. Mary'S [facility]01-17-2023 Instructions* Patient Instructions* Nora Crespo APRN.CNP - 09/23/2022 2:44 PM EST documented in this encounterSt. Mary'S [facility]01-17-2023 History of Present illness Narrative* Nora Crespo APRN.CNP - 09/23/2022 2:35 PM EST SUBJECTIVE Marcia Vale Mascorro is a 66 year old female [...] been seen in ER for this at [facility] prior to appointment here. Issues with abdominal pain, nausea, vomiting. No vomiting recently. No black or tarry stool, is on xarelto and plavix. Pain has been to lower abdomen and epigastric area. Onset months ago but gradually worsening. Heartburn daily. No apsiration but at times feels stuff caught when swallowing. Last EGD [id number], reflux esophagitis. Has not seen GI yet. [...] burning, noticing a coating on her tongue. [facility]. Her [...] anoro, avoid ICS given her thrush - [id number] BL - UMECLIDINIUM 62.5 MCG-VILANTEROL 25 MCG/ACTUATION [...] likely need to check in with her manager plan. - US CAROTID ARTERIES [facility]MAN [facility] LAB [...] recheck. Nora Crespo APRN-DONNA documented in this encounterSt. Mary'S [facility]01-04-2023 Miscellaneous Notes* Telephone Encounter - Hallie Gonzalez [...] you. Hallie Gonzalez RN documented in this encounterSt. Mary'S [facility]12-21-2022 Miscellaneous Notes* Telephone Encounter - Horacio Cervantes Ma - 08/27/2022 9:30 AM EST Patient notified, verbalized understanding. Patient asking to be seen tomorrow - Transferred to name plate stamper for appointment. * Telephone Encounter - Annamarie Lopez APRN.CNP - 08/27/2022 9:21 AM EST I have no open 40 min slots today to reschedule with me today. If she is acutely ill then she can go to [facility] or back to the ER Annamarie Lopez APRN.CNP * Telephone Encounter - Maureen Hassan LPN - 08/27/2022 8:45 AM EST Pt was scheduled with APRON MAN at 8am this morning. Pt called & stated the taxi did not show up to bring her for appt. Pt asking to reschedule today. Man in the background yelling obscenities & saying pt needs seentoday as she is sick. Maureen Hassan LPN documented in this encounterSt. Mary'S [facility]05-17-2022 Miscellaneous Notes* Telephone Encounter - Chucky Martinez MD - 01/21/2022 10:38 AM EDT Noted. * Telephone Encounter - Elsy Sanz RN - 01/21/2022 9:32 AM EDT Tiff, a leadership development manager with [facility] calling to ask if Dr. Martinez was patient's provider. She states she wanted to inform him that patient had a recent hospital stay at [facility]. Informed Tiff that per May 2020 [...] as requested. Thank you. documented in this encounterSt. Mary'S [facility]05-10-2022 Instructions* Patient Instructions* Pascale Mata APRN.PILOT CAPTAIN - 01/14/2022 4:21 PM EDT Understanding COPD [...] to and follow your treatment plan. Copyright 3324-9914 [facility]. All rights reserved documented in this encounterSt. Mary'S [facility]05-10-2022 History of Present illness Narrative* Pascale Mata APRN.DONNA - 01/14/2022 4:16 PM EDT This note was created using Truliriter. Subjective Marcia Mascorro is a 66 year [...] history is provided by the patient. No net mobile developer was used. Cough This is a new [...] as of 01/2020 per ER report from [facility]. PAST SURGICAL HISTORY Procedure Laterality Date 2D ECHO (EXEP) 01/19/2017 EF=55%, mild LVH, LA enlargement, UT and TI, Diastolic dysfunction. 2D ECHO (EXEP) [...] capsule Diaper,Brief, Adult,Disposable (DEPEND EASY FIT UNDERGARMENTS) [facility] Size Medium pull up. Change depends once [...] ICD10: R05.9 X 1 week Pascale Mata APRN.PILOT CAPTAIN documented in this encounterSt. Mary'S [facility]11-19-2021 Hospital Discharge instructions* Instructions* Codi Khan PA - 07/26/2021 Please take the pain medication for your symptoms. You have a bruised rib. Please use the breathingdevice 5 times a day, 3 breathing exercises at a setting. You have a bruised rib. documented in this encounterSUMMA Work Phone: 1(454) 703-167010-12-2021 NoteHospitalist Discharge Summary Alessio Mascorro : 1955 [...] Discharge Medications: Alessio Mascorro Home Medication Instructions ROMI:[id number] Printed on:06/18/21 1316 Medication Information escitalopram (LEXAPRO) 10 MG tablet Take 1 tablet by mouth daily lisinopril (PRINIVIL;ZESTRIL) 20 MG tablet Take 20 mg by mouth 2 times daily (with meals) LORazepam (ATIVAN) 1 MG tablet Take 1 mg by mouth 2 times daily. metoprolol succinate (TOPROL XL) 50 MG extended release tablet Take 1 tablet by mouth daily Recommended Follow-up: Nery Meyer MD [address] [facility] [address] [facility] [address] In 1 week post hospital fu appt Feliz Sidhu MD [address] [place] [address], [address] [facility] [address] In 1 week post hospital fu appt Readmission Risk Risk of Unplanned Readmission: 11 Complexity of Follow up: [] Moderate Complexity: follow up within 7-14 calendar days (70522) [x] Severe Complexity: follow up within 7 calendar days (33223) Follow up Testing, Pending results or Referrals [...] frame. Signed: Jose Guardado DO Division of [facility] Medicine Inpatient Medical Services 06/18/2021, 2:09 [facility]10-12-2021 Hospital Discharge instructions * Discharge Instr [...] most local grocery stores, pharmacies, and chain [employer]-stores. If you have any questions about your [...] Contact Information Primary Emergency Contact: Sanju Douglas Relation: Child Preferred language: [place] Refractory Furnace Designer needed? No Secondary Emergency Contact: Marleny Dawn Relation: Child Preferred language: [place] Past Surgical History: Past Surgical History: Procedure [...] MENTAL STATUS::::0} IV Access: { MUKUND IV ACCESS:089571424:::0} Nursing Mobility/ADLs: Walking {CHP DME ADLs:446652925:::0} Transfer {CHP DME ADLs:348086428:::0} Bathing {CHP DME ADLs:867088352:::0} Dressing {CHP DME ADLs:658233885:::0} Toileting {CHP DME ADLs:989864254:::0} Feeding {CHP DME ADLs:292222345:::0} Banner Painter {CHP DME ADLs:178749403:::0} Med Delivery { MUKUND MED Delivery:472036401:::0} Wound Care Documentation and Therapy: Elimination: Continence: Bowel: {YES / NO:} Bladder: {YES / NO:} Urinary Catheter: {Urinary Catheter:362774206:::0} Colostomy/Ileostomy/Ileal Conduit: {YES / NO:} Date of Last BM: No intake or output data in the 24 hours ending 06/18/21 1409 No intake/output data recorded. Safety Concerns: { MUKUND Safety Concerns:818580954:::0} Impairments/Disabilities: { MUKUND Impairments/Disabilities:923458621:::0} Nutrition Therapy: Current Nutrition Therapy: { MUKUND Diet List:875041436:::0} Routes of Feeding: {[facility] DME Other Feedings:977245594:::0} Liquids: {Sheetfed Press Operator liquid thickness:21066} Daily Fluid Restriction: {[facility] DME Yes amt example:430628685:::0} Last Modified Barium Swallow with Video (Video Swallowing Test): {Done Not Done Date:036363342:::0} Treatments at the Time of Hospital Discharge: Respiratory Treatments: Oxygen Therapy: {Therapy; copd oxygen:56600:::0} Ventilator: { CC Vent List:664514501:::0} Rehab Therapies: {THERAPEUTIC INTERVENTION:3398123557} Weight Bearing Status/Restrictions: { CC Weight Bearin:::0} Other Medical Equipment (for information only, NOT a DME order): {EQUIPMENT:080679867} Other Treatments: Patient's personal belongings (please select all that are sent with patient): {[facility] DME Belongings:297852223:::0} RN SIGNATURE: {Esignature:034558915:::0} CASE MANAGEMENT/SOCIAL WORK SECTION Inpatient Status Date: Readmission Risk Assessment Score: Readmission Risk Risk of Unplanned Readmission: 11 Discharging to Facility/ Agency Name: Address: Phone: Fax: Dialysis Facility (if applicable) Name: Address: Dialysis Schedule: Phone: Fax: Cut Off Saw Operator Pipe Blanks/Bench Carpenter signature: {Esignature:507082196:::0} PHYSICIAN SECTION Prognosis: {Prognosis:0342996817:::0} Condition at Discharge: { Patient Condition:343794775:::0} Rehab Potential (if transferring to Rehab): {Prognosis:5704253075:::0} Recommended Labs or Other Treatments After Discharge: Physician Certification: I certify the above information and transfer of Alessio Mascorro is necessaryfor the continuing treatment of the diagnosis listed and that she requires {Admit to Appropriate Level of Care:52309:::0} for {GREATER/LESS:660376241} 30 days. Update Admission H&P: {CHP DME Changes in HandP:642662575:::0} PHYSICIAN SIGNATURE: {Esignature:313617006:::0} documented in this [facility] Work Phone: 1(400) 500-611210-12-2021 History of Present illness Narrative* Feliz Sidhu MD - 06/18/2021 8:24 AM EDT Progress Note Date:06/18/2021 Room:[address] [place] [address] Patient Name:Alessio Mascorro Date of :1955 Age:65 [...] to preserve PPE for other caregivers, a kmbm-ob-nyeu encounter with the patient was not performed. That being said, all relevant records, notes and diagnostic tests were reviewed, including laboratory results and imaging. Please reference any relevant documentation elsewhere. Care will be coordinated with the primary service. SIGNATURE: Feliz Sidhu MD; FACC; FHRS; FASNC; CCDS. PATIENT NAME: Alessio Mascorro DATE: 06/18/2021 PAGER: [phone] * Brady Beatty MD - 06/17/2021 5:17 PM EDT Images from the original note were not included. Hospitalist Progress Note 06/17/2021 5:19 PM [phone]: Please page me ([phone]) for patient care issues. [phone]: Please page [facility] night Hospitalist for any issues. Subjective: Admit Date: 06/15/2021 PCP: No primary care provider on file. Room#: 559/3099 Interval History: Patient is lying on the [...] Oral Daily LABS: CBC: Recent Labs 06/15/21201206/17/21 040 WBC 7.0 [...] of Hospitalist Medicine Inpatient Medical Services PAGER: [phone] * Bimal Ambriz, WENDY - 06/17/2021 4:32 PM EDT Patient was [...] mother use illegal drugs together. * Bimal Ambriz RN - 06/17/2021 4:30 PM EDT Patient gave permission for this for her son Sanju and her daughter to have any information that they would like regarding this hospital admission. * Feliz Sidhu MD - 06/17/2021 9:14 AM EDT Progress Note Date:06/17/2021 Room:[address] [place] [address] Patient Name:Alessio Mascorro Date of :1955 Age:65 [...] to preserve PPE for other caregivers, a iwbi-cu-[id number] encounter with the patient was not performed. That being said, all relevant records, notes and diagnostic tests were reviewed, including laboratory results and imaging. Please reference any relevant documentation elsewhere. Care will be coordinated with the primary service. Labs/Imaging/Diagnostics Labs: CBC:Recent Labs 06/14/21 11006/15/21201206/17/21406 WBC 6.7 7.0 6.5 RBC 4.02 4.47 4.09 HGB 12.4 13.9 12.7 HCT 37.8 41.8 38.4 MCV 93.9 93.4 94.0 RDW 14.1 13.8 13.6 PLT 184 257 302 CHEMISTRIES: Recent Labs 06/14/21 11006/15/21201206/17/21406 NA 138 141 135 K 3.8 4.0 [...] Tomography ACCESSION EXAM DATE/TIME PROCEDURE ORDERING PROVIDER [id number] 06/15/2021 21:15 EDT CTA Chest w/ + w/o [id number] LESTER CPT code 64871 Q9967 Reason For Exam (CTA Chest w/ [...] Radiology ACCESSION EXAM DATE/TIME PROCEDURE ORDERING PROVIDER [id number] 06/15/2021 20:35 EDT CR Chest Portable [id number] -PAIGE BURNHAM CPT code 28182 Reason For Exam (CR Chest Portable) Dyspnea [...] PATIENT NAME: Alessio Mascorro DATE: 06/17/2021 PAGER: [phone] * Esthela Jackson - 06/17/2021 9:01 AM EDT Nutrition rescreen completed. Patient assigned a level 1. * Bimal Ambriz RN - 06/17/2021 7:46 AM EDT Pt refusing to wear radiation monitor and have EKG done. Benefits verses risk explained to patient. * Bimal Ambriz RN - 06/17/2021 7:44 AM EDT This nurse notified Dr. Sidhu regarding elevated troponin level and patient refusing to have EKG and wear radiation monitor. * Brady Beatty MD - 06/16/2021 4:19 PM EDT Patient heart rate is controlled, continuing Lopressor. Cardiology came and evaluated the patient. Continue monitor. H&P as per night physician * Layla Triana RN - 06/16/2021 3:57 PM EDT Pt's son, Sanju, updated on pt condition. [facility] Work Phone: 1(296) 330-722210-09-2021 NoteHospitalist Discharge Summary Marcia Mascorro : 1955 [...] Hospitalist Medicine Inpatient Medical Services 06/28/2021, 4:05 [facility]10-08-2021 History of Present illness Narrative* Kaye Johnson RN - 06/14/2021 10:30 PM EDT Son called with complaints about the emergency room. He stated he knew doctors and event organizer and he has rights to take the [...] him. documented in this encounterSUMMA Work Phone: 1(149) 381-805305-10-2020 History of Past illness Narrative* Problem Noted Date Resolved Date Opioid dependence 01/15/2020 09/23/2022 Overview: In 180 as of 01/2020 per ER report from [facility]. Encounter for screening mammogram for breast [...] this encounter (statuses as of 09/23/2022) [facility]05-[facility] History of Past illness Narrative* Problem Noted Date Resolved Date Opioid dependence 01/15/2020 09/23/2022 Overview: In 180 as of 01/2020 per ER report from [facility]. Encounter for screening mammogram for breast [...] this encounter (statuses as of 09/24/2022) [facility]05-10-2020 History of Past illness Narrative* Problem Noted Date Resolved Date Opioid dependence 01/15/2020 09/23/2022 Overview: In 180 as of 01/2020 per ER report from [facility]. Encounter for screening mammogram for breast [...] this encounter (statuses as of 10/01/2022) [facility]05-10[facility]2020 History of Past illness Narrative* Problem Noted Date Resolved Date Opioid dependence 01/15/2020 09/23/2022 Overview: In 180 as of 01/2020 per ER report from [facility]. Encounter for screening mammogram for breast [...] this encounter (statuses as of 10/03/2022) [facility]05-10[facility]2020 History of Past illness Narrative* Problem Noted Date Resolved Date Opioid dependence 01/15/2020 09/23/2022 Overview: In 180 as of 01/2020 per ER report from [facility]. Encounter for screening mammogram for breast [...] this encounter (statuses as of 10/13/2022) [facility]05-10[facility]2020 History of Past illness Narrative* Problem Noted Date Resolved Date Opioid dependence 01/15/2020 09/23/2022 Overview: In 180 as of 01/2020 per ER report from [facility]. Encounter for screening mammogram for breast [...] this encounter (statuses as of 11/07/2022) [facility]05-[facility]2020 History of Past illness Narrative* Problem Noted Date Resolved Date Opioid dependence 01/15/2020 09/23/2022 Overview: In 180 as of 01/2020 per ER report from [facility]. Encounter for screening mammogram for breast [...] this encounter (statuses as of 11/10/2022) [facility] History of Past illness Narrative* Problem Noted Date Resolved Date Opioid dependence 01/15/2020 09/23/2022 Overview: In 180 as of 01/2020 per ER report from [facility]. Encounter for screening mammogram for breast [...] this encounter (statuses as of 01/05/2023) [facility] History of Past illness Narrative* Problem Noted Date Resolved Date Opioid dependence 01/15/2020 09/23/2022 Overview: In 180 as of 01/2020 per ER report from [facility]. Encounter for screening mammogram for breast [...] this encounter (statuses as of 01/05/2023) [facility] History of Past illness Narrative* Problem Noted Date Resolved Date Opioid dependence 01/15/2020 09/23/2022 Overview: In 180 as of 01/2020 per ER report from [facility]. Encounter for screening mammogram for breast [...] this encounter (statuses as of 01/14/2023) [facility] History of Past illness Narrative* Problem Noted Date Resolved Date Opioid dependence 01/15/2020 09/23/2022 Overview: In 180 as of 01/2020 per ER report from [facility]. Encounter for screening mammogram for breast [...] this encounter (statuses as of 01/16/2023) [facility] History of Past illness Narrative* Problem Noted Date Resolved Date Opioid dependence 01/15/2020 09/23/2022 Overview: In 180 as of 01/2020 per ER report from [facility]. Encounter for screening mammogram for breast [...] this encounter (statuses as of 01/17/2023) [facility] History of Past illness Narrative* Problem Noted Date Resolved Date Opioid dependence 01/15/2020 09/23/2022 Overview: In 180 as of 01/2020 per ER report from [facility]. Encounter for screening mammogram for breast [...] this encounter (statuses as of 01/19/2023) [facility] History of Past illness Narrative* Problem Noted Date Diagnosed Date Resolved Date Opioid dependence 01/15/2020 09/23/2022 Overview: In 180 as of 01/2020 per ER report from [facility]. Encounter for screening mamm ogram for [...] this encounter (statuses as of 04/16/2023) [facility] History of Past illness Narrative* Problem Noted Date Diagnosed Date Resolved Date Opioid dependence 01/15/2020 09/23/2022 Overview: In 180 as of 01/2020 per ER report from [facility]. Encounter for screening mamm ogram for [...] this encounter (statuses as of 04/18/2023) [facility] History of Past illness Narrative* Problem Noted Date Diagnosed Date Resolved Date Opioid dependence 01/15/2020 09/23/2022 Overview: In 180 as of 01/2020 per ER report from [facility]. Encounter for screening mamm ogram for [...] this encounter (statuses as of 04/24/2023) [facility] History of Past illness Narrative* Problem Noted Date Diagnosed Date Resolved Date Opioid dependence 01/15/2020 09/23/2022 Overview: In 180 as of 01/2020 per ER report from [facility]. Encounter for screening mamm ogram for [...] this encounter (statuses as of 04/30/2023) [facility] History of Past illness Narrative* Problem Noted Date Diagnosed Date Resolved Date Opioid dependence 01/15/2020 09/23/2022 Overview: In 180 as of 01/2020 per ER report from [facility]. Encounter for screening mamm ogram for [...] this encounter (statuses as of 05/01/2023) [facility] History of Past illness Narrative* Problem Noted Date Diagnosed Date Resolved Date Opioid dependence 01/15/2020 09/23/2022 Overview: In 180 as of 01/2020 per ER report from [facility]. Encounter for screening mamm ogram for [...] this encounter (statuses as of 05/05/2023) [facility] History of Past illness Narrative* Problem Noted Date Diagnosed Date Resolved Date Opioid dependence 01/15/2020 09/23/2022 Overview: In 180 as of 01/2020 per ER report from [facility]. Encounter for screening mamm ogram for [...] this encounter (statuses as of 07/12/2023) [facility] History of Past illness Narrative* Problem Noted Date Diagnosed Date Resolved Date Opioid dependence 01/15/2020 09/23/2022 Overview: In 180 as of 01/2020 per ER report from [facility]. Encounter for screening mamm ogram for [...] this encounter (statuses as of 08/17/2023) [facility] History of Past illness Narrative* Problem Noted Date Diagnosed Date Resolved Date Opioid dependence 01/15/2020 09/23/2022 Overview: In 180 as of 01/2020 per ER report from [facility]. Encounter for screening mamm ogram for [...] of this encounter (statuses as of 11/19/2023) [facility] History of Past illness Narrative* Problem Noted Date Diagnosed Date Resolved Date Opioid dependence 01/15/2020 09/23/2022 Overview: In 180 as of 01/2020 per ER report from [facility]. Encounter for screening mamm ogram for [...] of this encounter (statuses as of 12/01/2023) [facility] History of Past illness Narrative* Problem Noted Date Resolved Date Epigastric pain 04/16/2016 04/16/2016 Colon cancer screening 04/16/2016 6 documented as of this encounter (statuses as of 01/14/2022) [facility] History of Past illness Narrative* Problem Noted Date Resolved Date Epigastric pain 04/16/2016 04/16/2016 Colon cancer screening 04/16/2016 6 documented as of this encounter (statuses as of 01/21/2022) [facility] History of Past illness Narrative* Problem Noted Date Resolved Date Epigastric pain 04/16/2016 04/16/2016 Colon cancer screening 04/16/2016 6 documented as of this encounter (statuses as of 08/27/2022) [facility] History of Past illness Narrative* Problem Noted Date Resolved Date Epigastric pain 04/16/2016 04/16/2016 Colon cancer screening 04/16/2016 6 documented as of this encounter (statuses as of 09/12/2022) [facility] note Author Rey Curtis [facility] Note Date/Time May 27, 2025 10:18[facility] Medical Records Department [address] [place] [address] Consultation - Cardiology 05/27/25 1003 MR#: [id number] Acct: [id number] Name: MARCIA MASCORRO Vale Rep #:[id number] : 1955 69 From: Rey Curtis MD PCP: Dr. Gabriel Galvan MD Status:AD M IN Location: [place] [address] Assessment & Plan Assessment/Plan (1) NSTEMI, initial episode of care: PLAN: Patient presents with atypical chest discomfort which has been chronic butat this time. My recommendation is for us to continue to follow her and likely undergo a repeat cardiac catheterization on Thursday and depending on the findingsfurther recommendations will be made. (2) LV (left ventricular) mural thrombus: PLAN: She does have a previous history of a left ventricular mural thrombus. After the cardiac catheterization I will recommend that we place her on anticoagulation likely with DOAC and see how she does. (3) Ischemic cardiomyopathy: PLAN: She does have a history of ischemic cardiomyopathy and will institute guideline directed medical therapy with carvedilol, an ARB or ARNI, and an [id number]. (4) Essential hypertension: PLAN: Her blood pressure appears to be under fair control the plan to be to continue this without making any major changes. (5) Hyperlipidemia: QUALIFIERS: Hyperlipidemia type: unspecified Qualified Code(s): E78.5 - Hyperlipidemia, unspecified PLAN: She does have a history of hyperlipidemia and will continue with high intensity statin. HPI Consult Data Date of Consult: 05/27/25 HPI Narrative HPI Narrative: MARCIA MASCORRO, is a 69 F who presents to the emergency room with left-sided chest discomfort as well as left shoulder discomfort. She has a history of chronic arthritis and anxiety and is being followed up by the pain management physicians. Patient has history of nonischemic cardiomyopathy with [...] with LV apical thrombus. From a cardiac standpoint,the patient had been doing well. She does acknowledge chest pain-midsternal this does [...] that she does have lightheadedness when walking. During this visit her EKG did not demonstrate anysignificant changes but her cardiac enzymes were abnormal and she also had an echocardiogram which demonstrated reduced ejection fraction of 20% with a probable apical thrombus. [facility] Medical History Chronic pain Kidney disease [...] reflux disease) Hyperlipidemia 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 Tobacco abuse [...] tablet 5 mg PO DAILY 09/28/2409/27 History polyethylene glycol 3350 17 17 g PO [...] PO QDAY #90 tabs 10/04 Unknown Rx clopidogrel 75 mg tablet 75 mg PO QDAY 01/13/25 Unkno wn History omeprazole 40 mg capsule,delayed 40 mg PO QDAY 5 Unknown History release potassium chloride 20 mEq 20 meq PO QDAY 01/13/25 Unkn own History tablet,extended release sertraline 50 mg tablet 50 mg PO QDAY 01/13/25 Unkno wn History spironolactone 25 mg tablet 25 mg PO QDAY 01/13/25 Unk nown History Allergy/AdvReac Type Severity Reaction Status Date / Time Iodinated Contrast Media Allergy SOB Verified 05/26/25 06:10 (iodine contrast) Family History Mother Hypertension CAD [...] substance use type: does not use ROS Constitutional Constitutional: Denies fever(s) or weight loss Eyes Eyes: Reports systems reviewed and no addt'l complaints, except as documented ENT HEENT: Reports systems reviewed and no addt'l complaints, except as documented Cardiovascular Cardiovascular: Reports chest pain at rest and chest pain with activity; Denies dyspnea at rest, dyspnea on exertion, edema, palpitations or paroxysmal nocturnal dyspnea Respiratory/Chest Respiratory/Chest: Reports shortness of breath at rest; Denies dyspnea on exertion, productive cough or shortness of breath with exertion Gastrointestinal Gastrointestinal: Denies change in bowel habits, nausea, vomiting or weight changes Genitourinary Genitourinary: Denies difficulty urinating Musculoskeletal Musculoskeletal: Denies joint stiffness or muscle weakness Integumentary Integumentary: Denies lesions Neurologic Neurologic: Denies dizziness or syncope Psychiatric Psychiatric: Denies anxiety Endocrine Endocrinology: Denies excessive sweating or fatigue Hematologic/Lymphatic Hematologic/Lymphatic: Denies anemia Allergic/Immunologic Allergic/Immunologic: Denies seasonal rhinorrhea Physical Exam Const alert, oriented x3 and no apparent distress General Appearance: cooperative HEENT hearing grossly normal bilaterally Head and Scalp: atraumatic Eyes EOMs intact bilaterally Neck General: normal visual inspection Chest inspection of chest normal and palpation of chest normal Resp normal respiratory effort Auscultation: clear to auscultation bilaterally Cardio regular rate, regular rhythm, S1 normal heart sound and S2 normal heart sound Jugular Venous Distention: JVD GI normal to inspection, nondistended, normoactive bowel sounds Extremity normal capillary refill and no pedal edema Peripheral Pulses: Yes pulses 2+ throughout and femoral pulses present Skin no rashes or lesions noted Neuro oriented x3 and CN's II-XII intact bilaterally Psych Appearance: grossly normal and appropriate Objective Data Vital Signs: Vital Signs Temp Pulse Resp BP Pulse Ox O2 Del Method O2 Flow Rate 98.1 F 79 18 118/76 94 Nasal Cannula 3 05/27/25 09:39 05/27/25 09:39 05/27/25 09:39 05/27/25 09:39 05/27/25 09:39 05/27/25 09:39 05/27/25 09:39 Oxygen Flow Rate (L/min) 3 Oxygen Delivery Method Nasal Cannula Weight: 172 lb 6.424 oz Body Mass Index (BMI) 28.7 Intake & Output: Intake and Output for Last 24 Hours 05/25/25 05/26/25 05/27/25 23:59 23:59 23:59 Intake Total 316.62 / 716.62 765.86 / 765.86 Output Total 1900 / 1900 Balance 316.62 / -383.38 -1134.14 / -1134.14 Lab / Micro Data 05/27/25 03:51 05/27/25 03:51 Labs: Laboratory Results - last 24 hr 05/26/25 06:00: PT 12.8, INR 0.9 05/26/25 08:15: Phosphorus 4.5, Magnesium Cancelled, Total Bilirubin < 0.15, Direct Bilirubin < 0.08, AST 35 H, ALT 20, Alkaline Phosphatase 153 H, Total Protein 6.0, Albumin 3.4, Globulin 2.6 05/26/25 11:00: APTT > 200.0 H*, Troponin T Hi Sens 4Hr 598 H* 05/26/25 20:23: APTT 39.0 H 05/27/25 03:51: WBC 7.5, RBC 3.93 L, Hgb 12.5, Hct 38.0, MCV 96.7, MCH 31.8, MCHC 32.9, RDW Std Deviation 48.8 H, RDW Coeff of Sariah 13.8, Plt Count 174, MPV 9.5, Immature Gran % (Auto) 0.400, Neut % (Auto) 81.6 H, Lymph % (Auto) 15.8 L, Rogers % (Auto) 1.9, Eos % (Auto) 0.0, Baso % (Auto) 0.3, Absolute Neuts (auto) 6.1, Absolute Lymphs (auto) 1.18, Nucleated RBC % 0, APTT 68.6 H, Sodium 140, Potassium 4.3, Chloride 103, Carbon Dioxide 28.8, Anion Gap 8, BUN 17, Creatinine 0.65 L, Estim Creat Clear Calc 69.57, Est GFR (MDRD) Non-Af 96, BUN/Creatinine Ratio 26.6 H, Glucose 146 H, Calcium 9.5, Triglycerides 68, Cholesterol 188, LDL Cholesterol, Calc 123, VLDL Cholesterol 14, HDL Iefshwopsin15, Cholesterol/HDL Ratio 3.66, TSH 0.505 Micro: Microbiology 05/26/25 14:14 Mucosa - Nasopharyngeal Respiratory Panel (PCR) - Final 05/26/25 13:12 Nasal Secretion MRSA (PCR) - Final 05/26/25 13:12 Mucosa - Nose Coronavirus COVID-19 PCR - Final Cardiology Labs/Tests 05/26/25 06:00: PT 12.8, INR 0.9 05/26/25 08:15: Phosphorus 4.5, Magnesium Cancelled, Total Bilirubin < 0.15, Direct Bilirubin < 0.08 05/26/25 11:00: APTT > 200.0 H* 05/26/25 20:23: APTT 39.0 H 05/27/25 03:51: WBC 7.5, RBC 3.93 L, Hgb 12.5, Hct 38.0, MCV 96.7, MCH 31.8, MCHC 32.9, Plt Count 174, MPV 9.5, Immature Gran % (Auto) 0.400, Neut % (Auto) 81.6 H, Lymph % (Auto) 15.8 L, Rogers % (Auto) 1.9, Eos % (Auto) 0.0, Baso % (Auto) 0.3, Absolute Neuts (auto) 6.1, Nucleated RBC % 0, APTT 68.6 H, Sodium 140, Potassium 4.3, Chloride 103, Carbon Dioxide 28.8, Anion Gap 8, BUN 17, Creatinine 0.65 L, Est GFR (MDRD) Non-Af 96, BUN/Creatinine Ratio 26.6 H, Nakuagd185 H, Calcium 9.5, Triglycerides 68, Cholesterol 188, VLDL Cholesterol 14, HDL Cholesterol 51, Cholesterol/HDL Ratio 3.66 Rhythm: EKG: ECHO: Stress Test: Cardiac Cath: PCI: CT Surgery: Holter monitor: EPS: PPM: CXR: Chest CT Scan: Radiography Diagnostic Testing: Radiology Impression Echocardiogram 05/26/25 12:06 Interpretation Summary Normal LV size. The left ventricular ejection fraction is 25 %. Thrombus adherent to the anterior apical wall. Severe segmental systolic dysfunction (see wall motion). Ordering Physician: Regan Russo Referring Physician: Gabriel Galvan M.D. Performed By: Rehana Gomes RCS STE Risk Score for UA/STEMI Assesmment (YES = 1) Risk Stratification Applicable: Yes Age > or = 65: Yes > or = 3 CAD risk factors (HTN, Hypercholesterolemia, Diabetes, family hx, current smoker): Yes Known CAD (Stenosis > or = 50%): No ASA used in past 7 days: Yes Severe angina (> or = 2 episodes in 24 hrs): No EKG ST change > or = 0.5mm: No Positive cardiac markers: Yes Score CELESTE Risk Score of mortality/ recurrent ischemic event over the next 14 days: 4 = 19.9% - Intermediate 05/27/25 1018 <Electronically signed by Rey Curtis MD> Cosigner Signature (if applicable): CC: Dr. Gabriel Galvan MD~ Signed [facility] Work Phone: Consult note Author Elyse Pena [facility] Note Date/Time May 29, 2025 12:22pm [facility] Medical Records Department [address] [place] [address] Counseling Note - Pharmacy 05/29/25 1220 MR#: [id number] Acct: [id number] Name: MASCORRONERYValentin Collazo Rep #:[id number] : 1955 69 From: Elyse Pena PCP: Dr. Gabriel Galvan MD Status:AD M IN Location: [facility] [id number] Pharmacy [place] Med Rec Counseling Pharmacy Service has performed discharge medication reconciliation and counseling for this patient. 1. EMPAGLIFLOZIN 10MG PO DAILY 2. SACUBITRIL/VALSARTAN 24/26MG 0.5 TABLET PO BID 3. RIVAROXABAN 20MG PO DINNER 4. STOP LISINOPRIL AND CLOPIDOGREL The patient's discharge medication list was reviewed for discrepancies and discrepancies were resolved. The patient was counseled on the following discharge medications and changes in medications for homegoing were reviewed. The Reason for Use, instructions for use, and potential side effects were reviewed for all new medications. The patient's questions regarding all of their medications were answered. The patient was able to verbally demonstrate an understanding of their dischargemedications. Medications at Discharge Home Medications inhalational spacing device (Aerochamber MV spacer) #1 ea 02/17/23 tiotropium bromide 2.5 mcg/actuation mist for inhalation (Spiriva Respimat) 2 puff inhalation DAILY #4 grams 02/17/23 lorazepam 1 mg tablet (Ativan) 1 mg PO TID PRN anxiety 07/16/23 gabapentin 400 mg capsule 400 mg PO Q6H nerve pain 07/29/23 nitroglycerin 0.4 mg sublingual tablet 0.4 mg buccal Q5M PRN chest pain 07/29/23 sucralfate 1 gram tablet 1 g PO Q8H 07/29/23 melatonin 3 mg capsule 3 mg PO QHS sleep 09/05/23 albuterol 90 mcg-budesonide 80 mcg/actuation HFA aerosol inhaler (Airsupra) 1 - 2 inh inhalation BID PRN shortness of breath 09/28/24 atorvastatin 40 mg tablet 40 mg PO QHS cholesterol 09/28/24 bisacodyl 5 mg tablet,delayed release 5 mg PO DAILY PRN constipation 09/28/24 cholecalciferol (vitamin D3) 125 mcg (5,000 unit) capsule 125 mcg PO DAILY supplement 09/28/24 hydrocodone-acetaminophen 5-325mg 5mg-325mg 1 tab PO Q4H pain 09/28/24 polyethylene glycol 3350 17 gram/dose oral powder 17 g PO BID constipation 09/28/24 promethazine 25 mg tablet 25 mg PO PRN PRN nausea and vomiting 09/28/24 budesonide-formoterol HFA 160 mcg-4.5 mcg/actuation aerosol inhaler (Symbicort) 1 puff inhalation BID COPD #10.2 grams 09/30/24 carvedilol 25 mg tablet 25 mg PO BID heart #120 tabs 10/04/24 furosemide 40 mg tablet 40 mg PO QDAY diuretic #90 tabs 10/04/24 omeprazole 40 mg capsule,delayed release 40 mg PO QDAY GERD 01/13/25 potassium chloride 20 mEq tablet,extended release 20 meq PO QDAY supplement 01/13/25 sertraline 50 mg tablet 50 mg PO QDAY depression 01/13/25 spironolactone 25 mg tablet 25 mg PO QDAY blood pressure 01/13/25 empagliflozin 10 mg tablet (Jardiance) 10 mg PO DAILY 30 days #30 tabs 05/29/25 rivaroxaban 20 mg tablet (Xarelto) 20 mg PO DINNER 30 days #30 tabs 05/29/25 sacubitril 24 mg-valsartan 26 mg tablet 0.5 tab PO BID 30 days #30 tabs 05/29/25 05/29/25 1222 <Electronically signed by Elyse Pena> Date _ Elyse Pena Cosigner Signature (if applicable): Date CC: ~ Signed [facility] Work Phone: Discharge summary [facility] Medical Records Department [address] [place] [id number] Discharge Summary 05/29/25 1526 MR#: [id number] Acct: [id number] Name: MARCIA MASCORRO Rep #:[id number] : 1955 69 From: Jorgito zamorano MD PCP: Dr. Gabriel Galvan MD Status: S IN Location: [place] [address] Providers Date of Admission: 05/26/25 Primary Care Physician: Dr. Gabriel Galvan MD Consultations 09/19/25 12:06 Consult: Cardiology Urgent Consulting Provider: Rey Curtis Reason for Consult: Chest Pain/nstemi EMERGENT Consult: No MD Notified: Yes Date Notified: 05/26/25 Time Notified: 09:34 Method of Notification: ED Physician Initiated Reason For Visit: NSTEMI Diagnosis Discharge Diagnosis (1) NSTEMI, initial episode of care: Status: Acute Code(s): I21.4 - Non-ST elevation (NSTEMI) myocardial infarction (2) LV (left ventricular) mural thrombus: Status: Acute Code(s): I51.3 - Intracardiac thrombosis, not elsewhere classified (3) Ischemic cardiomyopathy: Status: Acute Code(s): I25.5 - Ischemic cardiomyopathy (4) Essential hypertension: Status: Chronic Code(s): I10 - Essential (primary) hypertension (5) Hyperlipidemia: Status: Chronic Code(s): E78.5 - Hyperlipidemia, unspecified Qualifiers: Hyperlipidemia type: unspecified Qualified Code(s): E78.5 - Hyperlipidemia, unspecified Medications at Discharge Home Medications inhalational spacing device (Aerochamber MV spacer) #1 ea 02/17/23 tiotropium bromide 2.5 mcg/actuation mist for inhalation (Spiriva Respimat) 2 puff inhalation DAILYbreathing #4 grams 02/17/23 lorazepam 1 mg tablet (Ativan) 1 mg PO TID PRN anxiety 07/16/23 gabapentin 400 mg capsule 400 mg PO Q6H nerve pain 07/29/23 nitroglycerin 0.4 mg sublingual tablet 0.4 mg buccal Q5M PRN chest pain 07/29/23 sucralfate 1 gram tablet 1 g PO Q8H GI 07/29/23 melatonin 3 mg capsule 3 mg PO QHS sleep 09/05/23 albuterol 90 mcg-budesonide 80 mcg/actuation HFA aerosol inhaler (Airsupra) 1 - 2 inh inhalation BID PRN shortness of breath 09/28/24 atorvastatin 40 mg tablet 40 mg PO QHS cholesterol 09/28/24 bisacodyl 5 mg tablet,delayed release 5 mg PO DAILY PRN constipation 09/28/24 cholecalciferol (vitamin D3) 125 mcg (5,000 unit) capsule 125 mcg PO DAILY supplement 09/28/24 hydrocodone-acetaminophen 5-325mg 5mg-325mg 1 tab PO Q4H pain 09/28/24 polyethylene glycol 3350 17 gram/dose oral powder 17 g PO BID constipation 09/28/24 promethazine 25 mg tablet 25 mg PO PRN PRN nausea and vomiting 09/28/24 budesonide-formoterol HFA 160 mcg-4.5 mcg/actuation aerosol inhaler (Symbicort) 1 puff inhalation BID COPD #10.2 grams 09/30/24 carvedilol 25 mg tablet 25 mg PO BID heart #120 tabs 10/04/24 furosemide 40 mg tablet 40 mg PO QDAY diuretic #90 tabs 10/04/24 omeprazole 40 mg capsule,delayed release 40 mg PO QDAY GERD 01/13/25 potassium chloride 20 mEq tablet,extended release 20 meq PO QDAY supplement 01/13/25 sertraline 50 mg tablet 50 mg PO QDAY depression 01/13/25 spironolactone 25 mg tablet 25 mg PO QDAY blood pressure 01/13/25 empagliflozin 10 mg tablet (Jardiance) 10 mg PO DAILY 30 days #30 tabs 05/29/25 rivaroxaban 20 mg tablet (Xarelto) 20 mg PO DINNER 30 days #30 tabs 05/29/25 sacubitril 24 mg-valsartan 26 mg tablet 0.5 tab PO BID 30 days #30 tabs 05/29/25 Hospital Course Operations None Procedures 2-D Echocardiogram and Cardiac catheterization Summary of Care Provided Minutes Spent on Discharge: 33 Hospital Course: Per HPI: Hospital Course: 1. Atypical chest pain possible non-STEMI with contribution from panic/anxiety and COPD exacerbation: Patient is being admitted to PCU on telemetry. Started on baby aspirin, IV morphine and IV heparin drip. Home medication carvedilol, Plavix and atorvastatin regimen. Nitroglycerin ointment ordered.Twelve-lead EKG shows NSR 72 bpm, QTc 424 ms. QRS 128 ms. Troponins are 18, 102 and 598. proBNP about 3000. CELESTE risk score 5/7 with 26.6% risk of mortality from UT/recurrent ischemia event in next 2weeks. Triple Valve Tester consulted. Patient has significant contusion for anxiety and panic therefore IVAtivan 1 dose 0.5 mg ordered. Patient on Ativan 1 mg 3 times daily at home. 05/27: Seen by manager plan. Atypical chest discomfort which may be chronic. Triple Valve Tester recommended cardiac cath on Thursday. Patient has previous history of LV mural thrombus and echo corroborates that. On IV heparin drip and recommended DOAC after cardiac cath 05/28/2025: Plan for heart cath tomorrow morning, appreciate cardiology's assistance 05/29/2025: Cardiac catheterization did not require intervention and the recommendation was for medical management, she had mild to moderate disease in the right coronary artery with mild to moderate left anterior descending artery disease with moderate disease noted in the distal LAD. She will be on Xarelto for history of left mural thrombus therefore we will discontinue Plavix given the increased risk in the setting of anticoagulation and antiplatelets in new literature. Will start her on goal-directed therapy with Jardiance as well as Entresto, will discontinue her home ARB. Will continue with her home Coreg as well as her diuretics with Lasix and Aldactone. I discussed with her the plan f or discharge today and she expressed understanding of the risks and benefits ofgoing home and wouldlike to go home today. 2. COPD exacerbation: Patient is on send she is on antibiotic but is not seen on patient's home medication. Chest x-ray initially reviewed and shows perihilar congestion/venous congestion consistent with CHF exacerbation. No specific consolidation seen. Patient is being managed on scheduled bronchodilator, IV Solu-Medrol, Mucinex, incentive spirometry and Pep. 05/27: Respiratory panel MRSA nasal screen and COVID tests are negative. Continue bronchodilator andsteroid. Encouraged incentive spirometry. 05/28/2025: Decrease from 3 times daily dosing of her steroids to just daily dosing of p.o. prednisone 05/29/2025: She would like to not be on steroids at all therefore we will discontinue on discharge as she is down to her baseline oxygen requirement 3. Acute on chronic systolic CHF exacerbation: Started on IV Lasix. Heart failure core measures including intake and output, fluid restriction less than 1500 mL, daily weight monitoring, kidney and electrolytes monitoring. Last echoin July 2022 shows EF 30% moderately dilated LV, 1+ MR. 05/27: Lipid profile shows LDL 123. HDL normal. TSH normal. Echo shows EF 25%. Continue guideline directed medical therapy with carvedilol, ARNI and SGLT inhibitor. Lisinopril discontinued 4. Peripheral arterial disease ? Patient is on antiplatelet therapy as well as statin therapy, atorvastatin continued 5. Dyslipidemia ?Patient is on statin therapy, continued at home dose 7. Hypertension ? Blood pressure elevated, home medications continued with dose adjustment as needed 8. Depression with anxiety - Patient on sertraline and lorazepam 1 mg p.o. 3 times daily as needed. Continued 9. Chronic pain syndrome ? Patient follows Dr. Hartman On [place] at home. Patient's son stated that she is on sustained-release oxycodone or morphine but not found on the patient's home med list. 10. Hyperglycemia Glucose elevated 122. Probably due to recurrent Solu-Medrol/steroid Physical Exam Narrative General: Alert, Oriented x3, Cooperative, No apparent distress HEENT: Atraumatic, PERRLA, EOMI, Normocephalic Oral: Moist Mucosa Neck: Supple Lungs: Diminished, Normal air movement, No rhonchi, No wheeze, No rales Cardiovascular: Regular rate, Regular Rhythm, Normal S1, Normal S2, No murmurs Abdomen: Soft, Non Tender, Non-Distended, No Hepato-splenomegaly Extremities: No edema, Capillary Refill Less than 3 Seconds Skin: No rashes, No breakdown Musculoskeletal: No Tenderness to Palpation of Joints or Extremities Neurological: No focal neurological deficits, Motor Exam 5/5 strength throughout, Sensory exam intact to light touch and pain Psych/Mental Status: Normal Affect, Appropriate Weight / BMI Weight Weight: 163 lb 5.8 oz Body Mass Index (BMI) 27.1 ABG / Lab / Microbiology Data 05/29/25 05:00 05/29/25 05:00 Laboratory: Laboratory Results - last 24 hr 05/28/25 15:30: APTT 46.3 H 05/28/25 22:50: WBC 10.7, RBC 3.99 L, Hgb 12.9, Hct 38.2, MCV 95.7, MCH 32.3 H, MCHC 33.8, RDW Std Deviation 48.9 H, RDW Coeff of Sariah 14.0, Plt Count 202, MPV 9.8, APTT 57.2 H 05/29/25 05:00: WBC 11.0, RBC 4.09 L, Hgb 13.0, Hct 39.4, MCV 96.3, MCH 31.8, MCHC 33.0, RDW Std Deviation 48.9 H, RDW Coeff of Sariah 14.1, Plt Count 201, MPV 9.7, Immature Gran % (Auto) 0.500, Neut % (Auto) 58.8, Lymph % (Auto) 30.8, Rogers% (Auto) 9.3, Eos % (Auto) 0.5, Baso % (Auto) 0.1, Absolute Neuts (auto) 6.5, Absolute Lymphs (auto) 3.39, Nucleated RBC % 0, Sodium 139, Potassium 3.3, Chloride 98, Carbon Dioxide 31.7, Anion Gap 10, BUN 28 H, Creatinine 0.76, EstimCreat Clear Calc 67.83, Est GFR (MDRD) Non-Af 85, BUN/Creatinine Ratio 36.7 H, Glucose 103 H, Calcium 9.2, Magnesium 2.0 Microbiology: Microbiology 05/26/25 13:11 Blood Culture (Wb) - Right Hand Blood Culture - Preliminary No growth in 48 hours. 05/26/25 13:02 Blood Culture (Wb) - Right Wrist Blood Culture - Preliminary No growth in 48 hours. 05/27/25 20:50 Urine, Clean Catch Streptococcus pneumoniae Antigen (M - Final 05/26/25 14:14 Mucosa - Nasopharyngeal Respiratory Panel (PCR) - Final 05/26/25 13:12 Nasal Secretion MRSA (PCR) - Final 05/26/25 13:12 Mucosa - Nose Coronavirus COVID-19 PCR - Final D/C Instructions Call your doctor if you observe: Fever of 101 or Higher, Shortness of breath, Dizziness, Fainting spells, Swelling in the ankles, Chest pain and Increased palpitations (irregular heartbeat) DC O2, CPAP, BIPAP Needs Home O2 Discharge instructions: No Meaningful Use Info Meaningful Use Meaningful Use Diagnoses (Choose all that apply): None applicable Discharge Plan Admission Admit Date/Time: 05/26/25 09:32 Attending Provider: Jorgito Jackson Primary Care Provider: Gabriel Galvan Consulting Providers: Rey Curtis; Regan Russo Discharge Orders/Prescriptions Prescriptions: New Xarelto 20 mg Tablet 20 mg PO DINNER 30 Days Qty: 30 0RF Jardiance 10 mg Tablet 10 mg PO DAILY 30 Days Qty: 30 0RF sacubitril-valsartan 24-26 mg Tablet 0.5 tab PO BID 30 Days Qty: 30 0RF Continued Spiriva Respimat 2.5 mcg/actuation mist 2 puff [...] Rx Instructions: must administer with a meal/food omeprazole 40 mg capsule,delayed release(DR/EC) 40 mg PO QDAY spironolactone 25 mg tablet 25 mg PO QDAY sertraline 50 mg tablet 50 mg PO QDAY potassium chloride 20 mEq tablet extended release 20 meq PO QDAY melatonin 3 mg capsule 3 mg PO QHS gabapentin 400 mg capsule 400 mg PO Q6H nitroglycerin 0.4 mg tablet, sublingual 0.4 mg buccal Q5M PRN (Reason: chest pain) sucralfate 1 gram tablet 1 g PO Q8H promethazine 25 mg tablet 25 mg PO PRN PRN (Reason: nausea and vomiting) hydrocodone-acetaminophen 5-325 mg tablet 1 tab PO [...] (5,000 unit) capsule 125 mcg PO DAILY budesonide-formoterol [Symbicort] 160-4.5 mcg/actuation HFA aerosol inhaler 1 puff inhalation BID Qty: 10.2 0RF Discontinued clopidogrel 75 mg tablet 75 mg PO QDAY lisinopril 5 mg tablet 5 mg PO DAILY Referrals / Follow Up: Rey Curtis MD [Med Staff - Active Staff, Cardiology] - Within 1 Month Gabriel Galvan MD [Primary Care Provider, Internal Medicine] - Within 1 Week Referral Note: Appointment with Lyndsey Acevedo N.P. Disposition Disposition (needs filled in before D/C Order can be placed): Home, Self Care Charges/Coding Visit Charges Inpatient E&M: 22185 Disch Hosp >30min 05/29/25 1538 Cosigner Signature (if applicable): CC: Dr. Gabriel Galvan MD; Dr. Jorgito Jackson MD~ [facility] Note Date/Time May 26, 2025 9:38am [facility] Medical Records Department [address] [place] [address] Emergency Department Summary 05/26/25 MR#: [id number] Acct: [id number] Name: MARCIA MASCORRO Rep #:[id number] : [id number] 69 From: Ross Lou DO PCP: Dr. Gabriel Galvan MD Status:RE G ER Location: ED ADDENDUM by Dr. Odell Dwyer DO on 05/26/25 at 0938 Patient was turned over to me by Dr. Lou@ 0830 Brief history: 69-year-old female presents with chest pain Physical exam: As below Labs and images reviewed (if obtained): Delta troponin was elevated, ruled in for hospitalization based on [facility] high-sensitivity troponin protocol Discussed with cardiology (Dr. Curtis) recommended heparin and admission. Also discussed with hospitalist (Dr. Russo) who agreed with admission to PCU. MDM/plan: No acute events under my care. Patient reported ongoing chest pain. She was given nitroglycerin and aspirin. Admit to PCU 05/26/25 0938<Electronically signed by Odell Dwyer DO> Cosigner Signature (if applicable): cc: Dr. Gabriel Galvan MD ~* Signed HPI History of Present Illness Chief Complaint: Chest Pain Informant: patient and EMS Narrative Narrative: Patient is a 69-year-old female with past medical history of COPD emphysema as well as hypertension hyperlipidemia and ischemic cardiomyopathy. She presents with complaint of chest discomfort. She states that she awoke this morning roughly 1 hour prior to arrival and noticed some mid to left-sided chest pain that radiated towards her shoulder. She states there was no associated nausea vomiting diaphoresis or shortness of breath. She states that there has been no recent trauma or sick symptoms. She reports she is taking all of her home medication as directed but despite doing so has not had improvement of her symptoms. And secondary to this called EMS to be brought in for evaluation [facility] Medical History Chronic pain Kidney disease Asthma [...] reflux disease) Hyperlipidemia 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 Tobacco abuse [...] tablet 5 mg PO DAILY 09/28/2409/27 History polyethylene glycol 3350 17 17 g PO [...] PO QDAY #90 tabs 10/04 Unknown Rx clopidogrel 75 mg tablet 75 mg PO QDAY 01/13/25 Unkno wn History omeprazole 40 mg capsule,delayed 40 mg PO QDAY 5 Unknown History release potassium chloride 20 mEq 20 meq PO QDAY 01/13/25 Unkn own History tablet,extended release sertraline 50 mg tablet 50 mg PO QDAY 01/13/25 Unkno wn History spironolactone 25 mg tablet 25 mg PO QDAY 01/13/25 Unk nown History Allergy/AdvReac Type Severity Reaction Status Date / Time Iodinated Contrast Media Allergy SOB Verified 05/26/25 06:10 (iodine contrast) Family History Mother Hypertension CAD [...] ROS ROS ED Constitutional Constitutional ED: Denies chills or fever(s) Eyes Eyes: Denies change in vision ENT ENT ED: Denies rhinorrhea or sore throat Cardiovascular Cardiovascular: Reports chest pain; Denies palpitations or racing heartbeat Respiratory/Chest Respiratory/Chest: Reports cough and other Details: Patient reports cough is chronic in nature ; Denies dyspnea Gastrointestinal Gastrointestinal: Denies abdominal pain, diarrhea, nausea or vomiting Genitourinary Genitourinary ED: Denies dysuria Musculoskeletal Musculoskeletal: Denies myalgias Integumentary Denies rash Neurologic Neurologic: Denies headache(s) Psychiatric Psychiatric: Reports anxiety Hematologic/Lymphatic Hematologic/Lymphatic: Reports easy bleeding and easy bruising EXAM Physical Exam Const Vital Signs: 05/26/25 06:10 05/26/25 06:15 05/26/25 07:10 Temperature 98.0 F Temperature Source Oral Pulse Rate 76 72 Respiratory Rate 18 18 Respiratory Pattern Normal Blood Pressure 150/111 H 162/114 H Blood Pressure Mean 124 130 Pulse Ox 93 97 Oxygen Delivery Method Room Air Positive well nourished and well developed General Appearance ED: well developed HEENT HEENT Narrative: Normocephalic atraumatic Eyes PERRL and EOMs intact bilaterally General Eye ED: Negative for scleral icterus Neck supple and no JVD Chest Wall Chest Narrative: There is pain on palpation of the mid to left anterior chest wall without bony deformity or crepitance Resp normal respiratory effort Resp Narrative: Breath sounds are diminished throughout with faint rhonchi in the bilateral lower lobes and expiratory wheezing consistent with history of COPD/smoking However no signs of respiratory distress Cardio regular rate and regular rhythm Rate: other Other Details: Heart is regular rate and rhythm Radial and carotid pulses are equal and symmetric GI non-distended and no masses GI Narrative: Abdomen is soft and nondistended with hypoactive bowel sounds. There is mild pain on palpation along the umbilicus where patient has a ventral hernia that isreducible in nature No voluntary guarding or rigidity or pulsatile mass Auscultation: hypoactive bowel sounds Palpation: soft Extremity normal to inspection Extremity Narrative: No asymmetric edema of bilateral lower extremities Negative Homans' sign bilaterally +1 pitting edema to the bilateral lower extremities that is equal and symmetric Neuro oriented x3, CN's II-XII intact bilaterally and no sensory deficits noted Sensorium / Orientation: alert Psych Mood & Affect: anxious Skin no rashes or lesions noted and no wounds General Skin Exam: Negative for jaundice MDM MDM MDM Narrative Medical decision making narrative: Patient arrived to ER hypertensive but otherwise with stable vitals. She reported mid to left-sided chest discomfort but no associated nausea vomiting diaphoresis shortness of breath. Chart review reveals she does have a history of ischemic cardiomyopathy. She was evaluated by cardiology in September of this year. She has a previous echo from 2022 showing a left ventricular thrombus as well as diminished ejection fraction of approximately 20 to 30%. The recommendation was continued medical management with repeat echocardiogram. Thepatient states she has never followed up to have that obtained. Her EKG was compared to multiple previous ones and is similar in nature without acute ischemic or dysrhythmia change. Also of note was the outpatient cardiology notestates that the patient is typically short of breath at rest and with exertion and also has chest discomfort almost daily. Therefore at this time I feel her symptoms could be related to lung pathology such as pneumonia or congestive heart failure exacerbation or could in theory also be acute coronary syndrome asshe does have multiple risk factors for CAD. I have low concern that her discomfort is from a PE as she is on Xarelto and the chest pain is not pleuriticand is also reproducible. There is also potential that this is her chronic chest discomfort. However in order to help differentiate between an acute exacerbation versus chronic pain I did elect to perform basic laboratory studieswith an initial and delta troponin EKG. as stated above EKG revealed no ischemicchanges and is very similar to her previous. The initial troponin is 18 which is mildly elevated from a value of 11 obtained on December 20 of this year. Her proBNP is elevated but she has a known reduced ejection fraction and her pulse ox is normal on room air going against a CHF exacerbation. At this time the patient will require a delta troponin. I do feel that the value remains flat and the chance this being a acute coronary syndrome is low and her symptoms are most like related to her underlying chronic conditions of ischemic cardiomyopathy and CHF. At this time as the delta troponin and response to therapy is still pending the patient will be signed out to the day physician Dr. Dwyer History & Record Review Discussion w/independent historian: Patient Additional record(s) reviewed:: Prior outpatient record Lab Data Attestation: I reviewed the patient's lab results. Labs: Laboratory Results - last 24 hr 05/26/25 06:00 WBC 8.4 RBC 4.15 L Hgb 13.4 Hct 40.5 MCV 97.6 MCH 32.3 H MCHC 33.1 RDW Std Deviation 50.5 H RDW Coeff of Sariah 14.1 Plt Count 230 MPV 9.8 Immature Gran % (Auto) 0.200 Neut % (Auto) 31.2 L Lymph % (Auto) 55.8 H Rogers % (Auto) 8.8 Eos % (Auto) 3.1 Baso % (Auto) 0.9 Absolute Neuts (auto) 2.6 Absolute Lymphs (auto) 4.71 H Nucleated RBC % 0 Sodium 144 Potassium 4.2 Chloride 109 H Carbon Dioxide 26.6 Anion Gap 9 BUN 16 Creatinine 0.90 Estim Creat Clear Calc 57.50 Est GFR (MDRD) Non-Af 70 BUN/Creatinine Ratio 18.1 Glucose 122 H Calcium 9.2 Magnesium 2.2 Troponin T High Sens 18 H D NT pro BNP II 2936 H Radiography Diagnostic Testing: Clinical Impression(s) from Imaging Studies Chest X-Ray 05/26/25 06:48 IMPRESSION: Perihilar airspace opacities may represent CHF, pulmonary edema or pneumonia. Small pleural effusion. Reading Location: [facility] Chest x-ray as interpreted by emergency medicine physician reveals cardiomegaly with slight increased pulmonary vascular congestion consistent with CHF Discharge Plan Triage Chief Complaint: Chest Pain ED Provider: Ross Lou Dx/Rx/DC Orders Clinical Impression: Nonspecific chest pain, Ischemic cardiomyopathy, Essential hypertension Prescriptions: No Action Spiriva Respimat 2.5 mcg/actuation [...] Rx Instructions: must administer with a meal/food clopidogrel 75 mg tablet 75 mg PO QDAY omeprazole 40 mg capsule,delayed release(DR/EC) 40 mg PO QDAY spironolactone 25 mg tablet 25 mg PO QDAY sertraline 50 mg tablet 50 mg PO QDAY potassium chloride 20 mEq tablet extended release 20 meq PO QDAY melatonin 3 mg capsule 3 mg PO QHS gabapentin 400 mg capsule 400 mg PO Q6H nitroglycerin 0.4 mg tablet, sublingual 0.4 mg buccal Q5M PRN (Reason: chest pain) sucralfate 1 gram tablet 1 g PO Q8H promethazine 25 mg tablet 25 mg PO PRN PRN (Reason: nausea and vomiting) hydrocodone-acetaminophen 5-325 mg tablet 1 tab PO [...] Galvan Referrals: Gabriel Galvan MD [Primary Care Provider, Internal Medicine] Print Language: [place] What to do if you have Problems For any increased pain, shortness of breath, bleeding, nausea or vomiting, chestpain, or any unexpected problems, contact your Primary Care Provider. Call [facility] ([phone]) or report to the closest Emergency Room. Call 911 if necessary. 05/26/25 0819 <Electronically signed by Ross Lou DO> Cosigner Signature (if applicable): CC: Dr. Gabriel Galvan MD ~ Signed [facility] Work Phone: Discharge summary Author Jorgito Jackson [facility] Note Date/Time May 29, 2025 11:00am [facility] Medical Records Department [address] [place] [address] Instructions for Home/Discharge Instructions 05/29/25 1049 MR#: [id number] Acct: [id number] Name: MARCIA MASCORRO Rep #:[id number] : [id number] From: Jorgito zamorano MD PCP: Dr. Gabriel Galvan MD Status:AD M IN Discharge Instructions DC O2, CPAP, BIPAP needs Home O2 Discharge instructions: No Dressing / Incision Discharge Activity: Return to Normal Activity Dressing / Incision Call your doctor if you observe: Fever of 101 or Higher, Shortness of breath, Dizziness, Fainting spells, Swelling in the ankles, Chest pain and Increased palpitations (irregular heartbeat) Follow Up Care Test Results: Test results from this visit will be discussed in further detail at your follow- up appointment, if applicable. Discharge Plan Admission Admit Date/Time: 05/26/25 09:32 Attending Provider: Jorgito Jackson Primary Care Provider: Gabriel Galvan Consulting Providers: Rey Curtis; Regan Russo Discharge Orders/Prescriptions Prescriptions: New Xarelto 20 mg Tablet 20 mg PO DINNER 30 Days Qty: 30 0RF Jardiance 10 mg Tablet 10 mg PO DAILY 30 Days Qty: 30 0RF sacubitril-valsartan 24-26 mg Tablet 0.5 tab PO BID 30 Days Qty: 30 0RF Continued Spiriva Respimat 2.5 mcg/actuation mist 2 puff [...] Rx Instructions: must administer with a meal/food omeprazole 40 mg capsule,delayed release(DR/EC) 40 mg PO QDAY spironolactone 25 mg tablet 25 mg PO QDAY sertraline 50 mg tablet 50 mg PO QDAY potassium chloride 20 mEq tablet extended release 20 meq PO QDAY melatonin 3 mg capsule 3 mg PO QHS gabapentin 400 mg capsule 400 mg PO Q6H nitroglycerin 0.4 mg tablet, sublingual 0.4 mg buccal Q5M PRN (Reason: chest pain) sucralfate 1 gram tablet 1 g PO Q8H promethazine 25 mg tablet 25 mg PO PRN PRN (Reason: nausea and vomiting) hydrocodone-acetaminophen 5-325 mg tablet 1 tab PO [...] (5,000 unit) capsule 125 mcg PO DAILY budesonide-formoterol [Symbicort] 160-4.5 mcg/actuation HFA aerosol inhaler 1 puff inhalation BID Qty: 10.2 0RF Discontinued clopidogrel 75 mg tablet 75 mg PO QDAY lisinopril 5 mg tablet 5 mg PO DAILY Referrals / Follow Up: Rey Curtis MD [Med Staff - Active Staff, Cardiology] - Within 1 Month Gabriel Galvan MD [Primary Care Provider, Internal Medicine] - Within 1 Week Disposition Disposition (needs filled in before D/C Order can be placed): Home, Self Care 05/29/25 1100<Electronically signed by Jorgito Jackson MD>Jorgito Jackson MD CC: Dr. Rey Curtis MD; Dr. Gabirel Galvan MD; Dr. Regan Russo MD ~ Signed [facility] Work Phone: Discharge summary Author [facility]orgito Jackson [facility] Hospital Note Date/Time May 29, 2025 3:38pm [facility] Medical Records Department [address] [place] [address] Discharge Summary 05/29/25 1526 MR#: [id number] Acct: [id number] Name: MARCIA MASCORRO Rep #:[id number] : [id number] From: Jorgito zamorano MD PCP: Dr. Gabriel Galvan MD Status: S IN Location: [place] [id number] Providers Date of Admission: 05/26/25 Primary Care Physician: Dr. Gabriel Galvan MD Consultations 05/26/25 12:06 Consult: Cardiology Urgent Consulting Provider: Rey Curtis Reason for Consult: Chest Pain/nstemi EMERGENT Consult: No MD Notified: Yes Date Notified: 05/26/25 Time Notified: 09:34 Method of Notification: ED Physician Initiated Reason For Visit: NSTEMI Diagnosis Discharge Diagnosis (1) NSTEMI, initial episode of care: Status: Acute Code(s): I21.4 - Non-ST elevation (NSTEMI) myocardial infarction (2) LV (left ventricular) mural thrombus: Status: Acute Code(s): I51.3 - Intracardiac thrombosis, not elsewhere classified (3) Ischemic cardiomyopathy: Status: Acute Code(s): I25.5 - Ischemic cardiomyopathy (4) Essential hypertension: Status: Chronic Code(s): I10 - Essential (primary) hypertension (5) Hyperlipidemia: Status: Chronic Code(s): E78.5 - Hyperlipidemia, unspecified Qualifiers: Hyperlipidemia type: unspecified Qualified Code(s): E78.5 - Hyperlipidemia, unspecified Medications at Discharge Home Medications inhalational spacing device (Aerochamber MV spacer) #1 ea 02/17/23 tiotropium bromide 2.5 mcg/actuation mist for inhalation (Spiriva Respimat) 2 puff inhalation DAILY breathing #4 grams 02/17/23 lorazepam 1 mg tablet (Ativan) 1 mg PO TID PRN anxiety 07/16/23 gabapentin 400 mg capsule 400 mg PO Q6H nerve pain 07/29/23 nitroglycerin 0.4 mg sublingual tablet 0.4 mg buccal Q5M PRN chest pain 07/29/23 sucralfate 1 gram tablet 1 g PO Q8H GI 07/29/23 melatonin 3 mg capsule 3 mg PO QHS sleep 09/05/23 albuterol 90 mcg-budesonide 80 mcg/actuation HFA aerosol inhaler (Airsupra) 1 - 2 inh inhalation BID PRN shortness of breath 09/28/24 atorvastatin 40 mg tablet 40 mg PO QHS cholesterol 09/28/24 bisacodyl 5 mg tablet,delayed release 5 mg PO DAILY PRN constipation 09/28/24 cholecalciferol (vitamin D3) 125 mcg (5,000 unit) capsule 125 mcg PO DAILY supplement 09/28/24 hydrocodone-acetaminophen 5-325mg 5mg-325mg 1 tab PO Q4H pain 09/28/24 polyethylene glycol 3350 17 gram/dose oral powder 17 g PO BID constipation 09/28/24 promethazine 25 mg tablet 25 mg PO PRN PRN nausea and vomiting 09/28/24 budesonide-formoterol HFA 160 mcg-4.5 mcg/actuation aerosol inhaler (Symbicort) 1 puff inhalation BID COPD #10.2 grams 09/30/24 carvedilol 25 mg tablet 25 mg PO BID heart #120 tabs 10/04/24 furosemide 40 mg tablet 40 mg PO QDAY diuretic #90 tabs 10/04/24 omeprazole 40 mg capsule,delayed release 40 mg PO QDAY GERD 01/13/25 potassium chloride 20 mEq tablet,extended release 20 meq PO QDAY supplement 01/13/25 sertraline 50 mg tablet 50 mg PO QDAY depression 01/13/25 spironolactone 25 mg tablet 25 mg PO QDAY blood pressure 01/13/25 empagliflozin 10 mg tablet (Jardiance) 10 mg PO DAILY 30 days #30 tabs 05/29/25 rivaroxaban 20 mg tablet (Xarelto) 20 mg PO DINNER 30 days #30 tabs 05/29/25 sacubitril 24 mg-valsartan 26 mg tablet 0.5 tab PO BID 30 days #30 tabs 05/29/25 Hospital Course Operations None Procedures 2-D Echocardiogram and Cardiac catheterization Summary of Care Provided Minutes Spent on Discharge: 33 Hospital Course: Per HPI: Hospital Course: 1. Atypical chest pain possible non-STEMI with contribution from panic/anxiety and COPD exacerbation: Patient is being admitted to PCU on telemetry. Started on baby aspirin, IV morphine and IV heparin drip. Home medication carvedilol, Plavix and atorvastatin regimen. Nitroglycerin ointment ordered. Twelve-lead EKG shows NSR 72 bpm, QTc 424 ms. QRS 128 ms. Troponins are 18, 102 and 598. proBNP about 3000. CELESTE risk score 5/7 with 26.6% risk of mortality from UT/recurrent ischemia event in next 2 weeks. Triple Valve Tester consulted. Patient has significant contusion for anxiety and panic therefore IV Ativan 1 dose 0.5 mg ordered. Patient on Ativan 1 mg 3 times daily at home. 05/27: Seen by manager plan. Atypical chest discomfort which may be chronic. Triple Valve Tester recommended cardiac cath on Thursday. Patient has previous history of LV mural thrombus and echo corroborates that. On IV heparin drip and recommended DOAC after cardiac cath 05/28/2025: Plan for heart cath tomorrow morning, appreciate cardiology's assistance 05/29/2025: Cardiac catheterization did not require intervention and the recommendation was for medical management, she had mild to moderate disease in the right coronary artery with mild to moderate left anterior descending artery disease with moderate disease noted in the distal LAD. She will be on Xarelto for history of left mural thrombus therefore we will discontinue Plavix given the increased risk in the setting of anticoagulation and antiplatelets in new literature. Will start her on goal-directed therapy with Jardiance as well as Entresto, will discontinue her home ARB. Will continue with her home Coreg as well as her diuretics with Lasix and Aldactone. I discussed with her the plan for discharge today and she expressed understanding of the risks and benefits ofgoing home and would like to go home today. 2. COPD exacerbation: Patient is on send she is on antibiotic but is not seen on patient's home medication. Chest x-ray initially reviewed and shows perihilar congestion/venous congestion consistent with CHF exacerbation. No specific consolidation seen. Patient is being managed on scheduled bronchodilator, IV Solu-Medrol, Mucinex, incentive spirometry and Pep. 05/27: Respiratory panel MRSA nasal screen and COVID tests are negative. Continue bronchodilator and steroid. Encouraged incentive spirometry. 05/28/2025: Decrease from 3 times daily dosing of her steroids to just daily dosing of p.o. prednisone 05/29/2025: She would like to not be on steroids at all therefore we will discontinue on discharge as she is down to her baseline oxygen requirement 3. Acute on chronic systolic CHF exacerbation: Started on IV Lasix. Heart failure core measures including intake and output, fluid restriction less than 1500 mL, daily weight monitoring, kidney and electrolytes monitoring. Last echoin July 2022 shows EF 30% moderately dilated LV, 1+ MR. 05/27: Lipid profile shows LDL 123. HDL normal. TSH normal. Echo shows EF 25%. Continue guideline directed medical therapy with carvedilol, ARNI and SGLT inhibitor. Lisinopril discontinued 4. Peripheral arterial disease ? Patient is on antiplatelet therapy as well as statin therapy, atorvastatin continued 5. Dyslipidemia ?Patient is on statin therapy, continued at home dose 7. Hypertension ? Blood pressure elevated, home medications continued with dose adjustment as needed 8. Depression with anxiety - Patient on sertraline and lorazepam 1 mg p.o. 3 times daily as needed. Continued 9. Chronic pain syndrome ? Patient follows Dr. Forrest. On [place] at home. Patient's son stated that she is on sustained-release oxycodone or morphine but not found on the patient's home med list. 10. Hyperglycemia Glucose elevated 122. Probably due to recurrent Solu-Medrol/steroid Physical Exam Narrative General: Alert, Oriented x3, Cooperative, No apparent distress HEENT: Atraumatic, PERRLA, EOMI, Normocephalic Oral: Moist Mucosa Neck: Supple Lungs: Diminished, Normal air movement, No rhonchi, No wheeze, No rales Cardiovascular: Regular rate, Regular Rhythm, Normal S1, Normal S2, No murmurs Abdomen: Soft, Non Tender, Non-Distended, No Hepato-splenomegaly Extremities: No edema, Capillary Refill Less than 3 Seconds Skin: No rashes, No breakdown Musculoskeletal: No Tenderness to Palpation of Joints or Extremities Neurological: No focal neurological deficits, Motor Exam 5/5 strength throughout, Sensory exam intact to light touch and pain Psych/Mental Status: Normal Affect, Appropriate Weight / BMI Weight Weight: 163 lb 5.8 oz Body Mass Index (BMI) 27.1 ABG / Lab / Microbiology Data 05/29/25 05:00 05/29/25 05:00 Laboratory: Laboratory Results - last 24 hr 05/28/25 15:30: APTT 46.3 H 05/28/25 22:50: WBC 10.7, RBC 3.99 L, Hgb 12.9, Hct 38.2, MCV 95.7, MCH 32.3 H, MCHC 33.8, RDW Std Deviation 48.9 H, RDW Coeff of Sariah 14.0, Plt Count 202, MPV 9.8, APTT 57.2 H 05/29/25 05:00: WBC 11.0, RBC 4.09 L, Hgb 13.0, Hct 39.4, MCV 96.3, MCH 31.8, MCHC 33.0, RDW Std Deviation 48.9 H, RDW Coeff of Sariah 14.1, Plt Count 201, MPV 9.7, Immature Gran % (Auto) 0.500, Neut % (Auto) 58.8, Lymph % (Auto) 30.8, Rogers% (Auto) 9.3, Eos % (Auto) 0.5, Baso % (Auto) 0.1, Absolute Neuts (auto) 6.5, Absolute Lymphs (auto) 3.39, Nucleated RBC % 0, Sodium 139, Potassium 3.3, Chloride 98, Carbon Dioxide 31.7, Anion Gap 10, BUN 28 H, Creatinine 0.76, EstimCreat Clear Calc 67.83, Est GFR (MDRD) Non-Af 85, BUN/Creatinine Ratio 36.7 H, Glucose 103 H, Calcium 9.2, Magnesium 2.0 Microbiology: Microbiology 05/26/25 13:11 Blood Culture (Wb) - Right Hand Blood Culture - Preliminary No growth in 48 hours. 05/26/25 13:02 Blood Culture (Wb) - Right Wrist Blood Culture - Preliminary No growth in 48 hours. 05/27/25 20:50 Urine, Clean Catch Streptococcus pneumoniae Antigen (M - Final 05/26/25 14:14 Mucosa - Nasopharyngeal Respiratory Panel (PCR) - Final 05/26/25 13:12 Nasal Secretion MRSA (PCR) - Final 05/26/25 13:12 Mucosa - Nose Coronavirus COVID-19 PCR - Final D/C Instructions Call your doctor if you observe: Fever of 101 or Higher, Shortness of breath, Dizziness, Fainting spells, Swelling in the ankles, Chest pain and Increased palpitations (irregular heartbeat) DC O2, CPAP, BIPAP Needs Home O2 Discharge instructions: No Meaningful Use Info Meaningful Use Meaningful Use Diagnoses (Choose all that apply): None applicable Discharge Plan Admission Admit Date/Time: 05/26/25 09:32 Attending Provider: Jorgito Jackson Primary Care Provider: Gabriel Galvan Consulting Providers: Rey Curtis; Regan Russo Discharge Orders/Prescriptions Prescriptions: New Xarelto 20 mg Tablet 20 mg PO DINNER 30 Days Qty: 30 0RF Jardiance 10 mg Tablet 10 mg PO DAILY 30 Days Qty: 30 0RF sacubitril-valsartan 24-26 mg Tablet 0.5 tab PO BID 30 Days Qty: 30 0RF Continued Spiriva Respimat 2.5 mcg/actuation mist 2 puff [...] Rx Instructions: must administer with a meal/food omeprazole 40 mg capsule,delayed release(DR/EC) 40 mg PO QDAY spironolactone 25 mg tablet 25 mg PO QDAY sertraline 50 mg tablet 50 mg PO QDAY potassium chloride 20 mEq tablet extended release 20 meq PO QDAY melatonin 3 mg capsule 3 mg PO QHS gabapentin 400 mg capsule 400 mg PO Q6H nitroglycerin 0.4 mg tablet, sublingual 0.4 mg buccal Q5M PRN (Reason: chest pain) sucralfate 1 gram tablet 1 g PO Q8H promethazine 25 mg tablet 25 mg PO PRN PRN (Reason: nausea and vomiting) hydrocodone-acetaminophen 5-325 mg tablet 1 tab PO [...] (5,000 unit) capsule 125 mcg PO DAILY budesonide-formoterol [Symbicort] 160-4.5 mcg/actuation HFA aerosol inhaler 1 puff inhalation BID Qty: 10.2 0RF Discontinued clopidogrel 75 mg tablet 75 mg PO QDAY lisinopril 5 mg tablet 5 mg PO DAILY Referrals / Follow Up: Rey Curtis MD [Med Staff - Active Staff, Cardiology] - Within 1 Month Gabriel Galvan MD [Primary Care Provider, Internal Medicine] - Within 1 Week Referral Note: Appointment with Lyndsey Acevedo N.P. Disposition Disposition (needs filled in before D/C Order can be placed): Home, Self Care Charges/Coding Visit Charges Inpatient E&M: 40669 Disch Hosp >30min 05/29/25 1538 <Electronically signed by Jorgito Jackson MD> Cosigner Signature (if applicable): CC: Dr. Gabriel Galvan MD; Dr. Jorgito Jackson MD~ Signed [facility] Work Phone: Evaluation + Plan note No data available for this section [place] Evaluation note* Diagnosis COVID-19 documented in this [...] encounter [facility] Work Phone: Evaluation note* Diagnosis Onset Date Resolution Status Chest pain resolved [facility] Work Phone: Evaluation noteNo assessment information available [facility] Work Phone: Evaluation note* Diagnosis COPD with exacerbation (HCC)- Primary Obstructive chronic bronchitis with exacerbation [facility]ough 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 Diagnosis Onset Date Resolution Status Atherosclerosis of artery of extremity with rest pain acute Popliteal artery occlusion, right acute Ischemic cardiomyopathy acut e Tobacco abuse chronic Shortness of breath noneacti ve [facility] Work Phone: Evaluation note* Diagnosis Epigastric pain Abdominal pain, epigastric Lower abdominal pain Abdominal pain, other specified site [facility]* Diagnosis Onset Date Resolution Status Ischemic cardiomyopathy acut e Tobacco abuse chronic Shortness of breath noneacti ve ACS (acute coronary syndrome) acute Acute bronchospasm acute Ischemic cardiomyopathy acut e Acute exacerbation of chroni c obstructive pulmonary disease chronic Essential hypertension chron ic Hyperlipidemia chronic [facility] Work Phone: Evaluation note* Diagnosis Onset [...] disease chronic Atherosclerotic heart diseas e of [place] coronary artery without angina pectoris chronic Essential hypertension chron ic Hyperlipidemia chronic [facility] Work Phone: Evaluation note* Diagnosis Onset Date Resolution Status Ischemic cardiomyopathy acut e Tobacco abuse chronic Shortness of breath noneacti ve GERD (gastroesophageal reflux disease) acute Ischemic cardiomyopathy acut e LV (left ventricular) mural thrombus acute Essential hypertension chron ic Hyperlipidemia chronic Acute exacerbation of chroni c obstructive pulmonary disease resolved [facility] Work Phone: Evaluation note* Diagnosis Shortness of breath- Primary Epigastric pain Abdominal pain, epigastric Type 2 diabetes mellitus with other specified complication, without long-term current use of insulin ([facility]) Cardiomyopathy in disease classified elsewhere ([facility]) Supraventricular tachycardia ([facility]) Other specified cardiac dysrhythmias Acute exacerbation of chronic obstructive pulmonary disease (COPD) ([facility]) Obstructive chronic bronchitis with exacerbation LV (left ventricular) mural thrombus Acute myocardial infarction, unspecified site, episode of care unspecified Chest pain, unspecified type NSTEMI (non-ST elevated myocardial infarction) ([facility]) Acute myocardial infarction, subendocardial infarction, episode of care unspecified HFrEF (heart failure with reduced ejection fraction) ([facility]) Heart failure, unspecified Gastroesophageal reflux disease, unspecified whether esophagitis present [facility] Diagnosis Onset Date Resolution Status GERD (gastroesophageal reflux disease) acute Ischemic cardiomyopathy acut e LV (left ventricular) mural thrombus acute Essential hypertension chron ic Hyperlipidemia chronic Acute exacerbation of chroni c obstructive pulmonary disease resolved [facility] Work Phone: Evaluation note* Diagnosis Onset Date Resolution Status GERD (gastroesophageal reflux disease) acute Ischemic cardiomyopathy acut e LV (left ventricular) mural thrombus acute Essential hypertension chron ic Hyperlipidemia chronic Acute exacerbation of chroni c obstructive pulmonary disease resolved Bullous emphysema acute Ischemic cardiomyopathy acut e COPD with asthma chronic Tobacco abuse chronic [facility] Work Phone: Evaluation note* Diagnosis Encounter for screening for lung cancer- Primary Chronic cough Cough Chronic bronchitis, unspecified chronic bronchitis type (HCC) Smoker Tobacco use disorder documented in this encounter [facility] note* Diagnosis Radiculopathy, lumbosacral region- Primary Thoracic or lumbosacral neuritis or radiculitis, unspecified Neuropathy Mononeuritis of unspecified site Pain in right leg Paresthesia of skin Disturbance of skin sensation documented in this encounter [facility] note* Diagnosis Onset Date Resolution Status Bullous emphysema acute Ischemic cardiomyopathy acut e COPD with asthma chronic Tobacco abuse chronic Popliteal artery occlusion, right acute Dysphagia [facility] Work Phone: Evaluation note* Diagnosis Onset Date Resolution Status Popliteal artery occlusion, right acute Dysphagia [facility] Work Phone: Evaluation note* Diagnosis Lower abdominal pain Abdominal pain, other specified site Abdominal aneurysm (HCC) Abdominal aneurysm without mention of rupture Dizziness Dizziness and giddiness documented in this encounter [facility] note* Diagnosis Onset Date Resolution Status Dysphagia chronic Atherosclerotic heart diseas e of [place] coronary artery without angina pectoris acute NICHOLSON (dyspnea on exertion) ac [place] Ischemic cardiomyopathy acut e LV (left ventricular) mural thrombus acute Essential hypertension chron ic Hyperlipidemia [facility] Work Phone: Evaluation note* Diagnosis Encounter for screening mammogram for breast cancer documented in this encounter [facility] note* Diagnosis Onset Date Resolution Status Dysphagia chronic Atherosclerotic heart diseas e of [place] coronary artery without angina pectoris acute NICHOLSON (dyspnea on exertion) ac [place] Ischemic cardiomyopathy acut e LV (left ventricular) mural thrombus acute Essential hypertension chron ic Hyperlipidemia chronic Barretts esophagus chronic Common bile duct obstruction chronic Dysphagia [facility] Work Phone: Evaluation note* Diagnosis Onset Date Resolution Status Atherosclerotic heart diseas e of [place] coronary artery without angina pectoris acute NICHOLSON (dyspnea on exertion) ac [place] Ischemic cardiomyopathy acut e LV (left ventricular) mural thrombus acute Essential hypertension chron ic Hyperlipidemia chronic Barretts esophagus chronic Common bile duct obstruction chronic Dysphagia chronic Barretts esophagus [facility] Work Phone: Evaluation note* Diagnosis Onset Date Resolution Status Barretts esophagus chronic Common bile duct obstruction chronic Dysphagia chronic Barretts esophagus [facility] Work Phone: Evaluation note* Diagnosis Onset Date Resolution Status Barretts esophagus [facility] Work Phone: Evaluation note* Diagnosis RUQ pain- Primary Abdominal pain, right upper quadrant Liver abscess Abscess of liver Infection in abdomen (HCC) Unspecified peritonitis [facility]* Diagnosis Gait instability- Primary Abnormality of gait Ankle weakness Other symptoms referable to ankle and foot joint Peripheral neuropathic pain Retana's esophagus with dysplasia Retana's esophagus Lower abdominal pain Abdominal pain, other specified site [facility]* Diagnosis Abnormal finding of diagnostic imaging- Primary Other nonspecific (abnormal) findings on radiological and other examinations of body structure [facility]* Diagnosis Infection in abdomen (HCC) Unspecified peritonitis [facility]* Diagnosis Infection in abdomen (HCC)- Primary Unspecified peritonitis RUQ pain Abdominal pain, right upper quadrant Liver abscess Abscess of liver [facility]* Diagnosis Generalized abdominal pain- Primary Abdominal pain, generalized History of abdominal abscess Personal history of other specified diseases Retana's esophagus with dysplasia Retana's esophagus Pneumonia due to infectious organism, unspecified laterality, unspecified part of lung Encounter for therapeutic drug monitoring [facility]* Diagnosis Generalized abdominal pain Abdominal pain, generalized [facility]* Diagnosis Hiatal hernia- Primary Diaphragmatic hernia [...] specified cardiac dysrhythmias [facility]* Diagnosis Hiatal hernia Diaphragmatic hernia without mention of obstruction or gangrene Generalized abdominal pain Abdominal pain, generalized History of abdominal abscess Personal history of other specified diseases documented in this encounter [facility] note* Diagnosis Anxiety- Primary Anxiety state, unspecified Epigastric pain Abdominal pain, epigastric Nausea Nausea alone Neuropathy Mononeuritis of unspecified site Generalized abdominal pain Abdominal pain, generalized Lower abdominal pain Abdominal pain, other specified site [facility]* Diagnosis Chronic bronchitis, unspecified chronic bronchitis type (HCC) documented in this encounter [facility] note* Diagnosis Hiatal hernia- Primary Diaphragmatic hernia without mention of obstruction or gangrene Epigastric pain Abdominal pain, epigastric Encounter for therapeutic drug monitoring Mixed hyperlipidemia Type 2 diabetes mellitus with other specified complication, without long-term current use of insulin (HCC) Vitamin D deficiency Unspecified vitamin D deficiency Stress incontinence, female Female stress incontinence OAB (overactive bladder) Hypertonicity of bladder Essential hypertension, benign Other chronic pain Anxiety Anxiety state, unspecified Weight loss, non-intentional Loss of weight documented in this encounter [facility] note* Diagnosis Acute cough- Primary Viral illness Unspecified viral infection, in conditions classified elsewhere and of unspecified site Acute cough documented in this encounter [facility] note* Diagnosis Acute cough [facility]* Diagnosis Hiatal hernia- Primary Diaphragmatic hernia without mention of obstruction or gangrene [facility]* Diagnosis Encounter for screening mammogram for breast cancer documented in this encounter [facility] note* Diagnosis Sore throat- Primary Acute pharyngitis Respiratory infection Other diseases of respiratory system, not elsewhere classified documented in this encounter [facility] note* Diagnosis Chronic obstructive pulmonary disease, unspecified COPD type (HCC)- Primary Gastroesophageal reflux disease with esophagitis Hypokalemia Hypopotassemia Chronic pain of both ankles Epigastric pain Abdominal pain, epigastric Nausea Nausea alone Type 2 diabetes mellitus with other specified complication, without long-term current use of insulin (HCC) Vitamin D deficiency Unspecified vitamin D deficiency Mixed hyperlipidemia Chronic pain of both feet Pleurisy Pleurisy without mention of effusion or current tuberculosis Pulmonary emphysema, unspecified emphysema type (HCC) Encounter for long-term current use of medication documented in this encounter [facility] note* Diagnosis Chronic obstructive pulmonary disease, unspecified COPD type (HCC)- Primary documented in this encounter [facility] note* Diagnosis Chronic obstructive pulmonary disease, unspecified COPD type (HCC)- Primary Retana's esophagus without dysplasia Retana's esophagus Left upper quadrant abdominal pain Hypoxia Hypoxemia Neuropathy Mononeuritis of unspecified site Foamy urine Other nonspecific finding on examination of urine Hiatal hernia Diaphragmatic hernia without mention of obstruction or gangrene Other chronic pain [facility] Diagnosis Type 2 diabetes mellitus with other specified complication, without long-term current use of insulin (HCC)- Primary [facility] this [facility] Diagnosis Anxiety- Primary Anxiety state, unspecified [facility] Diagnosis Paraesophageal hernia- Primary Diaphragmatic hernia without mention of obstruction or gangrene Esophageal dysphagia Dysphagia, pharyngoesophageal phase [facility] Diagnosis Confusion- Primary Unspecified psychosis Anxiety [...] Other seborrheic dermatitis documented [facility] this [facility] Diagnosis Acute cystitis without hematuria- Primary Acute cystitis documented [facility] this [facility] Diagnosis Acute cough- Primary Pleural effusion, not elsewhere classified Sinobronchitis Unspecified sinusitis (chronic) Acute cough documented [facility] this [facility] Diagnosis Acute cough documented in this encounter [facility] note* Diagnosis Onset Date Resolution Status Admit Date LV (left ventricular) mural thrombus acute May 26, 2025 9:32am Nonspecific chest pain acute Se ptember 2024 9:32am Essential hypertension chronic Se ptember 2024 9:32am Hyperlipidemia chronic May 26, 2025 9:32am NSTEMI, initial episode of care resolved May 26, 2025 9:32am Ischemic cardiomyopathy inactive S eptember 2024 9:32am [facility] Work Phone: History and physical note Author Rakesh Friend [facility] June 24, 2023 11:47am Note Date/Time June 24, 2023 1 1:47am [facility] Medical Records Department [address] [place] [address] History & Physical Exam 06/24/23 1147 MR#: [id number] Acct: [id number] Name: MARCIA MASCORRO Rep #:[id number] : 1955 67 From: Rakesh Friend DO PCP: RACHELLE QuevedoC Status:REG SD Location: [place] [address] History and Physical Date of Admission: 06/24/23 67 F who presents to the office today for PMH COPD; anxiety; depression; HTN; HLD; osteoporosis; cardiomyopathy; CHF; PVD [facility] ED 01.13.23 with retrosternal pain/pressure. Workup without concern. Discharged with Carafate and Zofran. [facility] ED .06.29 with right sided abdominal pain/ache with some vaginal spotting despite total hysterectomy history. ? Biochemical CBC, CMP, lipase without pertinent abnormality. ? AST L12-ALT 15-AP H196 ? CT abd/pel intraluminal density within gallbladder; diverticulosis; stable aortic aneurysm ? US RUQ normal liver and gallbladder and pancreas. *I established 05.22.23 Resident at [facility] where she did receive ST services. Postprandial [...] Appearance: average body habitus and well nourished HENMT Head: normal to inspection Ears: hearing grossly [...] Affect: normal affect Quality Reporting Tobacco Screening ([facility] 138) Smoking Status: Current some day smoker [...] looking for the possibility of placement to shelter facility. This is a complex case. The [...] CC: FATMATA Crespo; Rakesh Martinez DO~ Signed [facility] Work Phone: History and physical note Author Regan Russo [facility] Note Date/Time May 26, 2025 12:39pm [facility] Medical Records Department [address] [place] [address] H&P Exam - Hospitalist 05/26/25 0942 MR#: [id number] Acct: [id number] Name: MARCIA MASCORRO Rep #:[id number] : 1955 69 From: Regan Quiñones PCP: Dr. Gabriel Galvan MD Status:AD M IN Location: [facility] [id number] HPI - General General Date of Admission: 05/26/25 Date of Service: 05/26/25 Chief Complaint: Left-sided chest pain, shoulder pain and shortness of breath since yesterday morning. HPI Narrative MARCIA MASCORRO, is a 69 F came to ED with left-sided chest pain with radiation toleft shoulder and arm along with shortness of breath since 6 AM today. Patient stated that she has been little sick for last 3 days with cough, shortness of breath and wheezing and was given some antibiotic as an outpatient. Initially her cough was dry but now it is mildly productive with thick whitish sputum. She has wheezing. She is also on Airsupra, Symbicort, Spiriva inhaler for her COPD. She still smokes cigarettes less than a pack a day. No fever. She has chronic anxiety and pain of left upper extremity and follows Dr. Forrest. She omi Ativan and hydrocodone as outpatient medications She denies any improvement in the pain since 6 AM. In ED, vitals shows BP 150s/111, pulse ox 93% on room air. She was given aspirin, IV morphine, haloperidol were given in the ED and started on IV heparindrip. Troponins elevated. Twelve-lead EKG shows no specific ST-T changes suggestive of acute ischemia [facility] Medical History Chronic pain Kidney disease [...] reflux disease) Hyperlipidemia 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 Tobacco abuse [...] tablet 5 mg PO DAILY 09/28/2409/27 History polyethylene glycol 3350 17 17 g PO [...] PO QDAY #90 tabs 10/04 Unknown Rx clopidogrel 75 mg tablet 75 mg PO QDAY 01/13/25 Unkno wn History omeprazole 40 mg capsule,delayed 40 mg PO QDAY 5 Unknown History release potassium chloride 20 mEq 20 meq PO QDAY 01/13/25 Unkn own History tablet,extended release sertraline 50 mg tablet 50 mg PO QDAY 01/13/25 Unkno wn History spironolactone 25 mg tablet 25 mg PO QDAY 01/13/25 Unk nown History Allergy/AdvReac Type Severity Reaction Status Date / Time Iodinated Contrast Media Allergy SOB Verified 05/26/25 06:10 (iodine contrast) Family History Mother Hypertension CAD [...] use type: does not use ROS ROS Narrative Constitutional: Reports chronic fatigue and weakness. No fever. HEENT: Reports systems reviewed and no addt'l complaints, except as documented Respiratory/Chest: COPD, chronic smoker. Chronic wheezing. CVS: As described in HPI Gastrointestinal: Denies coffee ground emesis, hematemesis or vomiting Genitourinary: Denies burning urination or new urinary tract symptoms Musculoskeletal: Denies acute joint pain or limited range of motion. No acute injury Neurologic: Denies seizure-like symptoms. Psychiatric: Chronic pain syndrome of left upper extremity. On Ativan, anxiety and depression skin: No ulcer. No rash Endocrinology: Reports systems reviewed and no addt'l complaints, except as documented Hematologic/Lymphatic: Reports systems reviewed and no addt'l complaints, exceptas documented Rest 14 ROS are negative except as mentioned in HPI Vital Signs Vital Signs Vital Signs: 05/26/25 06:10 05/26/25 06:15 05/26/25 07:10 Temperature 98.0 F Temperature Source Oral Pulse Rate 76 72 Respiratory Rate 18 18 Respiratory Pattern Normal Blood Pressure 150/111 H 162/114 H Blood Pressure Mean 124 130 Pulse Ox 93 97 Oxygen Delivery Method Room Air 05/26/25 08:00 05/26/25 09:00 Temperature Temperature Source Pulse Rate 79 90 Respiratory Rate 18 16 Respiratory Pattern Blood Pressure 135/81 H 135/83 H Blood Pressure Mean 99 100 Pulse Ox 99 96 Oxygen Delivery Method Weight Weight: 177 lb 7.554 oz Body Mass Index (BMI) 33.5 Physical Exam Narrative General: Alert, Oriented x3, Cooperative HEENT: Atraumatic, PERRLA, EOMI, Normocephalic. Oral: No Gingival or Mucosal Lesions/ Ulcerations Neck: Supple, No JVD, Negative Carotid Bruits Chest wall/Lungs: Air entry severely diminished in both lungs. Bilateral grosswheezing. Mild dyspnea at rest Cardiovascular: Sinus rhythm. S1-S2 regular, soft systolic murmur Abdomen: Bowel Sounds Present, Soft, Non Tender, Non-Distended : No dysuria. No renal angle tenderness. No suprapubic tenderness. Extremities: No edema, Capillary Refill Less than 3 Seconds Skin: No rashes, No breakdown Musculoskeletal: ROM limited over left shoulder and upper extremity. No acute tenderness palpation of joints of extremities Neurological: Cranial nerves II-XII grossly intact, DTR 2+/4. No acute focal neurological deficit. Psych/Mental Status: Anxious, panic Results Lab / Micro Data 05/26/25 06:00 05/26/25 06:00 Labs: Laboratory Results - last 24 hr 05/26/25 06:00: WBC 8.4, RBC 4.15 L, Hgb 13.4, Hct 40.5, MCV 97.6, MCH 32.3 H, MCHC 33.1, RDW Std Deviation 50.5 H, RDW Coeff of Sariah 14.1, Plt Count 230, MPV 9.8, Immature Gran % (Auto) 0.200, Neut % (Auto) 31.2 L, Lymph % (Auto) 55.8 H, Rogers % (Auto) 8.8, Eos % (Auto) 3.1, Baso % (Auto) 0.9, Absolute Neuts (auto) 2.6, Absolute Lymphs (auto) 4.71 H, Nucleated RBC % 0, Sodium 144, Potassium 4.2, Chloride 109 H, Carbon Dioxide 26.6, Anion Gap 9, BUN 16, Creatinine 0.90, Estim Creat Clear Calc 57.50, Est GFR (MDRD) Non-Af 70, BUN/Creatinine Ratio 18.1, Glucose 122 H, Calcium 9.2, Magnesium 2.2, Troponin T High Sens 18 H D, NTpro BNP II 2936 H 05/26/25 08:15: Troponin T Hi Sens 2 Hr 102 H* Imaging Radiology Impression Chest X-Ray 05/26/25 06:48 IMPRESSION: Perihilar airspace opacities may represent CHF, pulmonary edema or pneumonia. Small pleural effusion. Reading Location: [facility] Assessment & Plan Assessment/Plan (1) NSTEMI, initial episode of care: PLAN: Plan Patient is a 68-year-old lady who presented with shortness of breath diagnosed with COPD with acute exacerbation admitted to regular nursing floor for further management 1. Atypical chest pain possible non-STEMI with contribution from panic/anxiety and COPD exacerbation: Patient is being admitted to PCU on telemetry. Started on baby aspirin, IV morphine and IV heparin drip. Home medication carvedilol, Plavix and atorvastatin regimen. Nitroglycerin ointment ordered. Twelve-lead EKG shows NSR 72 bpm, QTc 424 ms. QRS 128 ms. Troponins are 18, 102 and 598. proBNP about 3000. CELESTE risk score 5/7 with 26.6% risk of mortality from UT/recurrent ischemia event in next 2 weeks. Triple Valve Tester consulted. Patient has significant contusion for anxiety and panic therefore IV Ativan 1 dose 0.5 mg ordered. Patient on Ativan 1 mg 3 times daily at home. 2. COPD exacerbation: Patient is on send she is on antibiotic but is not seen on patient's home medication. Chest x-ray initially reviewed and shows perihilar congestion/venous congestion consistent with CHF exacerbation. No specific consolidation seen. Patient is being managed on scheduled bronchodilator, IV Solu-Medrol, Mucinex, incentive spirometry and Pep. 3. CHF exacerbation: Started on IV Lasix. Heart failure core measures including intake and output, fluid restriction less than 1500 mL, daily weight monitoring, kidney and electrolytes monitoring. Last echo in July 2022 shows EF 30% moderately dilated LV, 1+ MR. 4. Peripheral arterial disease ? Patient is on antiplatelet therapy as well as statin therapy, atorvastatin continued 5. Dyslipidemia ?Patient is on statin therapy, continued at home dose 7. Hypertension ? Blood pressure elevated, home medications continued with dose adjustment as needed 8. Depression with anxiety - Patient on sertraline and lorazepam 1 mg p.o. 3 times daily as needed. Continued 9. Chronic pain syndrome ? Patient follows Dr. Forrest. On [place] at home. Patient's son stated that she is on sustained-release oxycodone or morphine but not found on the patient's home med list. 10. Hyperglycemia Glucose elevated 122. Probably due to recurrent Solu-Medrol/steroid 11. DVT prophylaxis ? On IV heparin drip Living will/advanced directive/end of life care: Patient does not have living will or advanced directive. His son present in the room is next to kin/power ofattorney for health. After discussion of benefits/risks procedures involved with full code, DNR CC arrest and DNR CC, the patient opted for full code. Patient does want artificial life support including intubation, tube feed, ventilator and/chest compression, central venous catheter, vasopressor and DC shock if needed Total time spent in [id number] encounter in discussion of advanced directive 17 minutes. Laboratory Results 05/26/25 06:00: WBC 8.4, RBC 4.15 L, Hgb 13.4, Hct 40.5, MCV 97.6, MCH 32.3 H, MCHC 33.1, RDW Std Deviation 50.5 H, RDW Coeff of Sariah 14.1, Plt Count 230, MPV 9.8, Immature Gran % (Auto) 0.200, Neut % (Auto) 31.2 L, Lymph % (Auto) 55.8 H, Rogers % (Auto) 8.8, Eos % (Auto) 3.1, Baso % (Auto) 0.9, Absolute Neuts (auto) 2.6, Absolute Lymphs (auto) 4.71 H, Nucleated RBC % 0, PT 12.8, INR 0.9, Sodium 144, Potassium 4.2, Chloride 109 H, Carbon Dioxide 26.6, Anion Gap 9, BUN 16, Creatinine 0.90, Estim Creat Clear Calc 57.50, Est GFR (MDRD) Non-Af 70, BUN/Creatinine Ratio 18.1, Glucose 122 H, Calcium 9.2, Magnesium 2.2, Troponin THigh Sens 18 H D, NT pro BNP II 2936 H 05/26/25 08:15: Phosphorus 4.5, Magnesium Cancelled, Total Bilirubin < 0.15, Direct Bilirubin < 0.08, AST 35 H, ALT 20, Alkaline Phosphatase 153 H, Troponin T Hi Sens 2 Hr 102 H*, Total Protein 6.0, Albumin 3.4, Globulin 2.6 05/26/25 11:00: APTT > 200.0 H*, Troponin T Hi Sens 4Hr 598 H* Clinical Impression(s) from Imaging Studies Chest X-Ray 05/26/25 06:48 IMPRESSION: Perihilar airspace opacities may represent CHF, pulmonary edema or pneumonia. Small pleural effusion. Charges/Coding Visit Charges Inpatient E&M: 64670 Init Hosp L3 Procedures Hospitalists Procedures: 56634 Advncd Care Plan 30 Min CELESTE Risk Score for UA/STEMI Assesmment (YES = 1) Age > or = 65: Yes > or = 3 CAD risk factors (HTN, Hypercholesterolemia, Diabetes, family hx, current smoker): Yes Known CAD (Stenosis > or = 50%): Yes ASA used in past 7 days: Yes Severe angina (> or = 2 episodes in 24 hrs): No EKG ST change > or = 0.5mm: No Positive cardiac markers: Yes Score CELESTE Risk Score of mortality/ recurrent ischemic event over the next 14 days: 5 = 26.6% - HIGH RISK 05/26/25 1239 <Electronically signed by Regan Russo MD> Cosigner Signature (if applicable): CC: Dr. Gabriel Galvan MD; Dr. Regan Russo MD~ Signed [facility] Work Phone: Hospital Discharge instructions Additional Instructions Your labs, chest x-ray and EKG were all unremarkable and unchanged in the past. Your pain appears to be secondary to musculoskeletal pain. Motrin and Tylenol for pain.[facility] Work Phone: Hospital Discharge instructions Additional Instructions Cardiac work-up negative. CTA chest also negative. Take Carafate as prescribed continue plan follow-up with GI.[facility] Work Phone: Hospital Discharge instructions Additional Instructions Keep [facility] all [facility] Work Phone: Hospital Discharge instructions Additional [...] the ER should you have [facility] Work Phone: Hospital Discharge instructions Additional Instructions Follow-up for your cardiac testing tomorrow as scheduled.[facility] Work Phone: Hospital Discharge instructions Additional [...] care physician for further outpatient evaluation and management.[facility] Work Phone: Hospital Discharge instructions Additional Instructions Follow-up with your primary care provider, and with Dr. Martinez as soon as possible.[facility] Work Phone: Hospital Discharge instructions No data available for this section [facility] Discharge instructions Additional Instructions Use your oxygen. Take the steroid burst. Use your albuterol as directed. Return with increased shortness of breath, new or worsening symptoms.[facility] Work Phone: Hospital Discharge instructions Additional Instructions All your blood work today looked good. Your urine was clean with no signs of infection or kidney stone. Follow-up with your doctor as needed. Use your pain medication that you use at home.[facility] Work Phone: Hospital Discharge instructionsAmbulatory Orders* Phase II, Outpatient Cardiac Rehab Location: None Selected [facility] Work Phone: Progress note No data available for this section [facility] note Author Carla Diane [facility] Note Date/Time May 26, 2025 11:47pm [facility] Medical Records Department [address] [place] [address] Progress Note - Hospitalist 05/26/25 2345 MR#: [id number] Acct: [id number] Name: MARCIA MASCORRO Rep #:[id number] : 1955 69 From: Carla Jerome PCP: Dr. Gabriel Galvan MD Status:AD M IN Location: [place] [address] Hospitalist Note Notified of 8beat run of VT, observed on telemetry, without acute change in presentation. Reviewed labs from admission: K 4.2, Ph 4.5, Mg 2.2, troponin max 598, proBNP 2936. 05/26/252346 <Electronically signed by Carla AVILEZ> Cosigner Signature (if applicable): CC: ~ Signed [facility] Work Phone: Progress note Author Regan Russo [facility] Note Date/Time May 27, 2025 1:31pm [facility] Medical Records Department [address] [place] [address] Progress Note - Hospitalist 05/27/25 1325 MR#: [id number] Acct: [id number] Name: MARCIA MASCORRO Rep #:[id number] : 1955 69 From: Regan Quiñones PCP: Dr. Gabriel Galvan MD Status:AD M IN Location: [place] [address] Reason for Visit Chief Complaint: Left-sided chest pain, shoulder pain and shortness of breath since yesterday morning. Objective Data Objective Data Vital Signs: Vital Signs Temp Pulse Resp BP Pulse Ox O2 Del Method O2 Flow Rate 98.1 F 87 19 H 118/76 94 Nasal Cannula 3 05/27/25 09:39 05/27/25 11:22 05/27/25 11:22 05/27/25 09:39 05/27/25 09:39 05/27/25 09:39 05/27/25 09:39 Oxygen Flow Rate (L/min) 3 Oxygen Delivery Method Nasal Cannula Weight: 172 lb 6.424 oz Body Mass Index (BMI) 28.7 Intake & Output: Intake and Output for Last 24 Hours 05/25/25 05/26/25 05/27/25 23:59 23:59 23:59 Intake Total 316.62 / 716.62 1076.49 / 1076.49 Output Total 1900 / 1900 Balance 316.62 / -383.38 -823.51 / -823.51 Lab / Micro Data 05/27/25 03:51 05/27/25 03:51 Labs: Laboratory Results - last 24 hr 05/26/25 20:23: APTT 39.0 H 05/27/25 03:51: WBC 7.5, RBC 3.93 L, Hgb 12.5, Hct 38.0, MCV 96.7, MCH 31.8, MCHC 32.9, RDW Std Deviation 48.8 H, RDW Coeff of Sariah 13.8, Plt Count 174, MPV 9.5, Immature Gran % (Auto) 0.400, Neut % (Auto) 81.6 H, Lymph % (Auto) 15.8 L, Rogers % (Auto) 1.9, Eos % (Auto) 0.0, Baso % (Auto) 0.3, Absolute Neuts (auto) 6.1, Absolute Lymphs (auto) 1.18, Nucleated RBC % 0, APTT 68.6 H, Sodium 140, Potassium 4.3, Chloride 103, Carbon Dioxide 28.8, Anion Gap 8, BUN 17, Creatinine 0.65 L, Estim Creat Clear Calc 69.57, Est GFR (MDRD) Non-Af 96, BUN/Creatinine Ratio 26.6 H, Glucose 146 H, Calcium 9.5, Triglycerides 68, Cholesterol 188, LDL Cholesterol, Calc 123, VLDL Cholesterol 14, HDL [id number], Cholesterol/HDL Ratio 3.66, TSH 0.505 05/27/25 11:40: APTT 52.0 H Micro: Microbiology 05/26/25 14:14 Mucosa - Nasopharyngeal Respiratory Panel (PCR) - Final 05/26/25 13:12 Nasal Secretion MRSA (PCR) - Final 05/26/25 13:12 Mucosa - Nose Coronavirus COVID-19 PCR - Final Radiography Diagnostic Testing: Radiology Impression Echocardiogram 05/26/25 12:06 Interpretation Summary Normal LV size. The left ventricular ejection fraction is 25 %. Thrombus adherent to the anterior apical wall. Severe segmental systolic dysfunction (see wall motion). Ordering Physician: Regan Russo Referring Physician: Gabriel Galvan M.D. Performed By: Rehana Gomes RCS Physical Exam Narrative Seen and examined. Shortness of breath and chest pain is better. Patient is found to have LV muralthrombus. Currently on IV heparin drip. EF 25%. Physical exam General: Alert, Oriented x3, Cooperative HEENT: Atraumatic, PERRLA, EOMI, Normocephalic. Oral: No Gingival or Mucosal Lesions/ Ulcerations Neck: Supple, No JVD, Negative Carotid Bruits Chest wall/Lungs: Air entry severely diminished in both lungs. Dyspnea at restimproved. Wheezing improved Cardiovascular: Sinus rhythm. S1-S2 regular, soft systolic murmur Abdomen: Bowel Sounds Present, Soft, Non Tender, Non-Distended : No dysuria. No renal angle tenderness. No suprapubic tenderness. Extremities: No edema, Capillary Refill Less than 3 Seconds Skin: No rashes, No breakdown Musculoskeletal: ROM limited over left shoulder and upper extremity. No acute tenderness palpation of joints of extremities Neurological: Cranial nerves II-XII grossly intact, DTR 2+/4. No acute focal neurological deficit. Psych/Mental Status: Anxious, flat affect Assessment & Plan Assessment/Plan (1) NSTEMI, initial episode of care: PLAN: Plan Patient is a 68-year-old lady who presented with shortness of breath diagnosed with COPD with acute exacerbation admitted to regular nursing floor for further management 1. Atypical chest pain possible non-STEMI with contribution from panic/anxiety and COPD exacerbation: Patient is being admitted to PCU on telemetry. Started on baby aspirin, IV morphine and IV heparin drip. Home medication carvedilol, Plavix and atorvastatin regimen. Nitroglycerin ointment ordered. Twelve-lead EKG shows NSR 72 bpm, QTc 424 ms. QRS 128 ms. Troponins are 18, 102 and 598. proBNP about 3000. CELESTE risk score 5/7 with 26.6% risk of mortality from UT/recurrent ischemia event in next 2 weeks. Triple Valve Tester consulted. Patient has significant contusion for anxiety and panic therefore IV Ativan 1 dose 0.5 mg ordered. Patient on Ativan 1 mg 3 times daily at home. 05/27: Seen by manager plan. Atypical chest discomfort which may be chronic. Triple Valve Tester recommended cardiac cath on Thursday. Patient has previous history of LV mural thrombus and echo corroborates that. On IV heparin drip and recommended DOAC after cardiac cath 2. COPD exacerbation: Patient is on send she is on antibiotic but is not seen on patient's home medication. Chest x-ray initially reviewed and shows perihilar congestion/venous congestion consistent with CHF exacerbation. No specific consolidation seen. Patient is being managed on scheduled bronchodilator, IV Solu-Medrol, Mucinex, incentive spirometry and Pep. 05/27: Respiratory panel MRSA nasal screen and COVID tests are negative. Continue bronchodilator and steroid. Encouraged incentive spirometry. 3. CHF exacerbation: Started on IV Lasix. Heart failure core measures including intake and output, fluid restriction less than 1500 mL, daily weight monitoring, kidney and electrolytes monitoring. Last echo in July 2022 shows EF 30% moderately dilated LV, 1+ MR. 05/27: Lipid profile shows LDL 123. HDL normal. TSH normal. Echo shows EF 25%. Continue guideline directed medical therapy with carvedilol, ARNI and SGLT inhibitor. Lisinopril discontinued 4. Peripheral arterial disease ? Patient is on antiplatelet therapy as well as statin therapy, atorvastatin continued 5. Dyslipidemia ?Patient is on statin therapy, continued at home dose 7. Hypertension ? Blood pressure elevated, home medications continued with dose adjustment as needed 8. Depression with anxiety - Patient on sertraline and lorazepam 1 mg p.o. 3 times daily as needed. Continued 9. Chronic pain syndrome ? Patient follows Dr. Forrest. On [place] at home. Patient's son stated that she is on sustained-release oxycodone or morphine but not found on the patient's home med list. 10. Hyperglycemia Glucose elevated 122. Probably due to recurrent Solu-Medrol/steroid 11. DVT prophylaxis ? On IV heparin drip Living will/advanced directive/end of life care: Patient does not have living will or advanced directive. His son present in the room is next to kin/power ofattorney for health. After discussion of benefits/risks procedures involved with full code, DNR CC arrest and DNR CC, the patient opted for full code. Patient does want artificial life support including intubation, tube feed, ventilator and/chest compression, central venous catheter, vasopressor and DC shock if needed Microbiology Past 72 Hours 05/26/25 14:14 Mucosa - Nasopharyngeal Respiratory Panel (PCR) - Final 05/26/25 13:12 Nasal Secretion MRSA (PCR) - Final 05/26/25 13:12 Mucosa - Nose Coronavirus COVID-19 PCR - Final Laboratory Results 05/26/25 20:23: APTT 39.0 H 05/27/25 03:51: WBC 7.5, RBC 3.93 L, Hgb 12.5, Hct 38.0, MCV 96.7, MCH 31.8, MCHC 32.9, RDW Std Deviation 48.8 H, RDW Coeff of Sariah 13.8, Plt Count 174, MPV 9.5, Immature Gran % (Auto) 0.400, Neut % (Auto) 81.6 H, Lymph % (Auto) 15.8 L, Rogers % (Auto) 1.9, Eos % (Auto) 0.0, Baso % (Auto) 0.3, Absolute Neuts (auto) 6.1, Absolute Lymphs (auto) 1.18, Nucleated RBC % 0, APTT 68.6 H, Sodium 140, Potassium 4.3, Chloride 103, Carbon Dioxide 28.8, Anion Gap 8, BUN 17, Creatinine 0.65 L, Estim Creat Clear Calc 69.57, Est GFR (MDRD) Non-Af 96, BUN/Creatinine Ratio 26.6 H, Glucose 146 H, Calcium 9.5, Triglycerides 68, Cholesterol 188, LDL Cholesterol, Calc 123, VLDL Cholesterol 14, HDL [id number], Cholesterol/HDL Ratio 3.66, TSH 0.505 05/27/25 11:40: APTT 52.0 H Clinical Impression(s) from Imaging Studies Chest X-Ray 05/26/25 06:48 IMPRESSION: Perihilar airspace opacities may represent CHF, pulmonary edema or pneumonia. Small pleural effusion. Charges/Coding Visit Charges Inpatient E&M: 19213 Subs Hosp L2 05/27/25 1331 <Electronically signed by Regan Russo MD> Cosigner Signature (if applicable): CC: ~ Signed [facility] Work Phone: Progress note Author Rey Curtis [facility] Note Date/Time May 28, 2025 9:07am [facility] Medical Records Department [address] [place] [address] Progress Note - Cardiology 05/28/25821 MR#: [id number] Acct: [id number] Name: MARCIA MASCORRO Rep #:[id number] : 1955 69 From: Rey Curtis MD PCP: Dr. Gabriel Galvan MD Status:AD M IN Location: [place] [address] Subjective Subjective Patient seen and evaluated. Objective Data Vital Signs: Vital Signs Temp Pulse Resp BP Pulse Ox O2 Del Method O2 Flow Rate 98.7 F 77 20 H 130/80 H 93 Nasal Cannula 3 05/28/25 03:10 05/28/25 07:25 05/28/25 07:25 05/28/25 03:10 05/28/25 07:25 05/28/25 07:25 05/28/25 07:25 Oxygen Flow Rate (L/min) 3 Oxygen Delivery Method Nasal Cannula Weight: 168 lb 10.458 oz Body Mass Index (BMI) 28.0 Intake & Output: Intake and Output for Last 24 Hours 05/26/25 05/27/25 05/28/25 23:59 23:59 23:59 Intake Total 316.62 / 716.62 2018.39 / 2258.39 298.92 / 298.92 Output Total 2350 / 2750 800 / 800 Balance 316.62 / -383.38 -331.61 / -491.61 -501.08 / -501.08 Lab / Micro Data 05/27/25 03:51 05/27/25 03:51 Labs: Laboratory Results - last 24 hr 05/27/25 11:40: APTT 52.0 H 05/27/25 18:29: APTT 52.2 H 05/28/25 00:34: APTT 50.0 H 05/28/25 07:28: APTT 108.1 H* Micro: Microbiology 05/27/25 20:50 Urine, Clean Catch Streptococcus pneumoniae Antigen (M - Final Cardiology Labs/Tests 05/27/25 11:40: APTT 52.0 H 05/27/25 18:29: APTT 52.2 H 05/28/25 00:34: APTT 50.0 H 05/28/25 07:28: APTT 108.1 H* Rhythm: EKG: ECHO: Stress Test: Cardiac Cath: PCI: CT Surgery: Holter monitor: EPS: PPM: CXR: Chest CT Scan: Physical Exam Const alert, oriented x3 and no apparent distress General Appearance: cooperative HEENT hearing grossly normal bilaterally Head and Scalp: atraumatic Eyes EOMs intact bilaterally Neck General: normal visual inspection Chest inspection of chest normal and palpation of chest normal Resp normal respiratory effort Auscultation: clear to auscultation bilaterally Cardio regular rate, regular rhythm, S1 normal heart sound and S2 normal heart sound Jugular Venous Distention: JVD GI normal to inspection, nondistended, normoactive bowel sounds Extremity normal capillary refill and no pedal edema Peripheral Pulses: Yes pulses 2+ throughout and femoral pulses present Skin no rashes or lesions noted Neuro oriented x3 and CN's II-XII intact bilaterally Psych Appearance: grossly normal and appropriate Assessment & Plan Assessment/Plan (1) NSTEMI, initial episode of care: PLAN: Patient presents with atypical chest discomfort which has been chronic butat this time. My recommendation is for us to continue to follow her and likely undergo a repeat cardiac catheterization on Thursday and depending on the findingsfurther recommendations will be made. (2) LV (left ventricular) mural thrombus: PLAN: She does have a previous history of a left ventricular mural thrombus. After the cardiac catheterization I will recommend that we place her on anticoagulation likely with DOAC and see how she does. (3) Ischemic cardiomyopathy: PLAN: She does have a history of ischemic cardiomyopathy and will institute guideline directed medical therapy with carvedilol, an ARB or ARNI, and an [id number]. (4) Essential hypertension: PLAN: Her blood pressure appears to be under fair control the plan to be to continue this without making any major changes. (5) Hyperlipidemia: QUALIFIERS: Hyperlipidemia type: unspecified Qualified Code(s): E78.5 - Hyperlipidemia, unspecified PLAN: She does have a history of hyperlipidemia and will continue with high intensity statin. 05/28/25906 <Electronically signed by Rey Curtis MD> Cosigner Signature (if applicable): CC: ~ Signed [facility] Work Phone: Progress note Author Jorgito Jackson [facility] Note Date/Time May 28, 2025 11:18am [facility] Medical Records Department [address] [place] [address] Progress Note - Hospitalist 05/28/25 1116 MR#: [id number] Acct: [id number] Name: MARCIA MASCORRO Rep #:[id number] : 1955 69 From: Jorgito zamorano MD PCP: Dr. Gabriel Galvan MD Status:AD M IN Location: [place] [address] Subjective Subjective No issues overnight, denies any chest pain currently. Breathing little bit better. She does have agitation from steroids so we will decrease dose Objective Data Objective Data Vital Signs: Vital Signs Temp Pulse Resp BP Pulse Ox O2 Del Method O2 Flow Rate 97.8 F 71 18 95/70 92 Nasal Cannula 3 05/28/25 08:58 05/28/25 08:58 05/28/25 08:58 05/28/25 08:58 05/28/25 08:58 05/28/25 09:00 05/28/25 09:00 Oxygen Flow Rate (L/min) 3 Oxygen Delivery Method Nasal Cannula Weight: 168 lb 10.458 oz Body Mass Index (BMI) 28.0 Intake & Output: Intake and Output for Last 24 Hours 05/27/25 05/28/25 05/29/25 03:59 03:59 03:59 Intake Total 716.62 / 716.62 1917.31 / 1917.31 331.03 / 331.03 Output Total 1100 / 1100 1650 / 1650 400 / 400 Balance -383.38 / -383.38 267.31 / 267.31 -68.97 / -68.97 Lab / Micro Data 05/27/25 03:51 05/27/25 03:51 Labs: Laboratory Results - last 24 hr 05/27/25 11:40: APTT 52.0 H 05/27/25 18:29: APTT 52.2 H 05/28/25 00:34: APTT 50.0 H 05/28/25 07:28: APTT 108.1 H* Micro: Microbiology 05/27/25 20:50 Urine, Clean Catch Streptococcus pneumoniae Antigen (M - Final 05/26/25 14:14 Mucosa - Nasopharyngeal Respiratory Panel (PCR) - Final 05/26/25 13:12 Nasal Secretion MRSA (PCR) - Final 05/26/25 13:12 Mucosa - Nose Coronavirus COVID-19 PCR - Final Physical Exam Narrative General: Alert, Oriented x3, Cooperative, No apparent distress HEENT: Atraumatic, PERRLA, EOMI, Normocephalic Oral: Moist Mucosa Neck: Supple Lungs: Diminished, Normal air movement, No rhonchi, No wheeze, No rales Cardiovascular: Regular rate, Regular Rhythm, Normal S1, Normal S2, No murmurs Abdomen: Soft, Non Tender, Non-Distended, No Hepato-splenomegaly Extremities: No edema, Capillary Refill Less than 3 Seconds Skin: No rashes, No breakdown Musculoskeletal: No Tenderness to Palpation of Joints or Extremities Neurological: No focal neurological deficits, Motor Exam 5/5 strength throughout, Sensory exam intact to light touch and pain Psych/Mental Status: Normal Affect, Appropriate Assessment & Plan Assessment/Plan (1) NSTEMI, initial episode of care: PLAN: Plan 1. Atypical chest pain possible non-STEMI with contribution from panic/anxiety and COPD exacerbation: Patient is being admitted to PCU on telemetry. Started on baby aspirin, IV morphine and IV heparin drip. Home medication carvedilol, Plavix and atorvastatin regimen. Nitroglycerin ointment ordered. Twelve-lead EKG shows NSR 72 bpm, QTc 424 ms. QRS 128 ms. Troponins are 18, 102 and 598. proBNP about 3000. CELESTE risk score 5/7 with 26.6% risk of mortality from [place]/recurrent ischemia event in next 2 weeks. Triple Valve Tester consulted. Patient has significant contusion for anxiety and panic therefore IV Ativan 1 dose 0.5 mg ordered. Patient on Ativan 1 mg 3 times daily at home. 05/27: Seen by manager plan. Atypical chest discomfort which may be chronic. Triple Valve Tester recommended cardiac cath on Thursday. Patient has previous history of LV mural thrombus and echo corroborates that. On IV heparin drip and recommended DOAC after cardiac cath 05/28/2025: Plan for heart cath tomorrow morning, appreciate cardiology's assistance 2. COPD exacerbation: Patient is on send she is on antibiotic but is not seen on patient's home medication. Chest x-ray initially reviewed and shows perihilar congestion/venous congestion consistent with CHF exacerbation. No specific consolidation seen. Patient is being managed on scheduled bronchodilator, IV Solu-Medrol, Mucinex, incentive spirometry and Pep. 05/27: Respiratory panel MRSA nasal screen and COVID tests are negative. Continue bronchodilator and steroid. Encouraged incentive spirometry. 05/28/2025: Decrease from 3 times daily dosing of her steroids to just daily dosing of p.o. prednisone 3. CHF exacerbation: Started on IV Lasix. Heart failure core measures including intake and output, fluid restriction less than 1500 mL, daily weight monitoring, kidney and electrolytes monitoring. Last echo in July 2022 shows EF 30% moderately dilated LV, 1+ MR. 05/27: Lipid profile shows LDL 123. HDL normal. TSH normal. Echo shows EF 25%. Continue guideline directed medical therapy with carvedilol, ARNI and SGLT inhibitor. Lisinopril discontinued 4. Peripheral arterial disease ? Patient is on antiplatelet therapy as well as statin therapy, atorvastatin continued 5. Dyslipidemia ?Patient is on statin therapy, continued at home dose 7. Hypertension ? Blood pressure elevated, home medications continued with dose adjustment as needed 8. Depression with anxiety - Patient on sertraline and lorazepam 1 mg p.o. 3 times daily as needed. Continued 9. Chronic pain syndrome ? Patient follows Dr. Forrest. On [place] at home. Patient's son stated that she is on sustained-release oxycodone or morphine but not found on the patient's home med list. 10. Hyperglycemia Glucose elevated 122. Probably due to recurrent Solu-Medrol/steroid DVT: Heparin drip Charges/Coding Visit Charges Inpatient E&M: 18006 Subs Hosp L2 05/28/25 1118 <Electronically signed by Jorgito Jackson MD> Cosigner Signature (if applicable): CC: ~ Signed [facility] Work Phone: Progress note Author Rey Curtis [facility] Note Date/Time May 29, 2025 8:51am [facility] Medical Records Department [address] [place] [address] Progress Note - Cardiology 05/29/25 0850 MR#: [id number] Acct: [id number] Name: MARCIA MASCORRO Rep #:[id number] : 1955 69 From: Rey Curtis MD PCP: Dr. Gabriel Galvan MD Status:AD M IN Location: [place] [address] Subjective Subjective Patient seen and evaluated. Underwent cardiac catheterization today Objective Data Vital Signs: Vital Signs Temp Pulse Resp BP Pulse Ox O2 Del Method O2 Flow Rate 97.8 F 62 18 132/88 H 99 Nasal Cannula 3 05/29/25 05:10 05/29/25 06:55 05/29/25 06:55 05/29/25 05:10 05/29/25 05:10 05/29/25 07:45 05/29/25 07:45 Oxygen Flow Rate (L/min) 3 Oxygen Delivery Method Nasal Cannula Weight: 163 lb 5.8 oz Body Mass Index (BMI) 27.1 Intake & Output: Intake and Output for Last 24 Hours 05/27/25 05/28/25 05/29/25 23:59 23:59 23:59 Intake Total 2018.39 / 2258.39 745.04 / 745.04 42.47 / 42.47 Output Total 2350 / 2750 1200 / 1200 300 / 300 Balance -331.61 / -491.61 -454.96 / -454.96 -257.53 / -257.53 Lab / Micro Data 05/29/25 05:00 05/29/25 05:00 Labs: Laboratory Results - last 24 hr 05/28/25 15:30: APTT 46.3 H 05/28/25 22:50: WBC 10.7, RBC 3.99 L, Hgb 12.9, Hct 38.2, MCV 95.7, MCH 32.3 H, MCHC 33.8, RDW Std Deviation 48.9 H, RDW Coeff of Sariah 14.0, Plt Count 202, MPV 9.8, APTT 57.2 H 05/29/25 05:00: WBC 11.0, RBC 4.09 L, Hgb 13.0, Hct 39.4, MCV 96.3, MCH 31.8, MCHC 33.0, RDW Std Deviation 48.9 H, RDW Coeff of Sariah 14.1, Plt Count 201, MPV 9.7, Immature Gran % (Auto) 0.500, Neut % (Auto) 58.8, Lymph % (Auto) 30.8, Rogers% (Auto) 9.3, Eos % (Auto) 0.5, Baso % (Auto) 0.1, Absolute Neuts (auto) 6.5, Absolute Lymphs (auto) 3.39, Nucleated RBC % 0, Sodium 139, Potassium 3.3, Chloride 98, Carbon Dioxide 31.7, Anion Gap 10, BUN 28 H, Creatinine 0.76, EstimCreat Clear Calc 67.83, Est GFR (MDRD) Non-Af 85, BUN/Creatinine Ratio 36.7 H, Glucose 103 H, Calcium 9.2, Magnesium 2.0 Micro: Microbiology 05/26/25 13:11 Blood Culture (Wb) - Right Hand Blood Culture - Preliminary No growth in 48 hours. 05/26/25 13:02 Blood Culture (Wb) - Right Wrist Blood Culture - Preliminary No growth in 48 hours. Cardiology Labs/Tests 05/28/25 15:30: APTT 46.3 H 05/28/25 22:50: WBC 10.7, RBC 3.99 L, Hgb 12.9, Hct 38.2, MCV 95.7, MCH 32.3 H, MCHC 33.8, Plt Count 202, MPV 9.8, APTT 57.2 H 05/29/25 05:00: WBC 11.0, RBC 4.09 L, Hgb 13.0, Hct 39.4, MCV 96.3, MCH 31.8, MCHC 33.0, Plt Count 201, MPV 9.7, Immature Gran % (Auto) 0.500, Neut % (Auto) 58.8, Lymph % (Auto) 30.8, Rogers % (Auto) 9.3, Eos % (Auto) 0.5, Baso % (Auto) 0.1, Absolute Neuts (auto) 6.5, Nucleated RBC % 0, Sodium 139, Potassium 3.3, Chloride 98, Carbon Dioxide 31.7, Anion Gap 10, BUN 28 H, Creatinine 0.76, Est GFR (MDRD) Non-Af 85, BUN/Creatinine Ratio 36.7 H, Glucose 103 H, Calcium 9.2, Magnesium 2.0 Rhythm: EKG: ECHO: Stress Test: Cardiac Cath: PCI: CT Surgery: Holter monitor: EPS: PPM: CXR: Chest CT Scan: Physical Exam Const alert, oriented x3 and no apparent distress General Appearance: cooperative HEENT hearing grossly normal bilaterally Head and Scalp: atraumatic Eyes EOMs intact bilaterally Neck General: normal visual inspection Chest inspection of chest normal and palpation of chest normal Resp normal respiratory effort Auscultation: clear to auscultation bilaterally Cardio regular rate, regular rhythm, S1 normal heart sound and S2 normal heart sound Jugular Venous Distention: JVD GI normal to inspection, nondistended, normoactive bowel sounds Extremity normal capillary refill and no pedal edema Peripheral Pulses: Yes pulses 2+ throughout and femoral pulses present Skin no rashes or lesions noted Neuro oriented x3 and CN's II-XII intact bilaterally Psych Appearance: grossly normal and appropriate Assessment & Plan Assessment/Plan (1) NSTEMI, initial episode of care: PLAN: Patient presents with atypical chest discomfort which has been chronic Cardiac catheterization today demonstrated mild to moderate disease in the rightcoronary artery, mild to moderate left anterior descending artery disease and moderate disease noted in the distal left anterior descending artery in an area with an akinetic zone. Recommend aggressive medical therapy. (2) LV (left ventricular) mural thrombus: PLAN: She does have a previous history of a left ventricular mural thrombus. Will recommend resuming Xarelto 20 mg a day starting this evening. Patient can be discharged home follow-up outpatient follow-up (3) Ischemic cardiomyopathy: PLAN: She does have a history of ischemic cardiomyopathy and will institute guideline directed medical therapy with carvedilol, an ARB or ARNI, and an [id number]. (4) Essential hypertension: PLAN: Her blood pressure appears to be under fair control the plan to be to continue this without making any major changes. (5) Hyperlipidemia: QUALIFIERS: Hyperlipidemia type: unspecified Qualified Code(s): E78.5 - Hyperlipidemia, unspecified PLAN: She does have a history of hyperlipidemia and will continue with high intensity statin. 05/29/25 6566 <Electronically signed by Rey Curtis MD> Cosigner Signature (if applicable): CC: ~ Signed [facility] Work Phone: Reason for referral (narrative)* Diagnostic Procedure Only (Routine) - Authorized Specialty Diagnoses / Procedures Referred By Apurvaac t Referred To Contact [facility] Diagnoses Lower abdominal pain Abdominal aneurysm Dizziness Procedures US ABD AORTA US RETROPERITONEAL REAL TIME W/IMAGE LIMITED Nora Crespo APRN.CNP [address] [place] [address] [facility] Referral ID Status Reason Start Date Expiration Date Visits Requested Visits Authorized [id number] Authorized Auto-Generat ed Referral 09/23/2022 10/23/2023 1 1 * Outpatient Procedure (Routine) - Authorized Specialty Diagnoses / Procedures Referred By Karma orthman Referred [facility] Diagnoses Abdominal aneurysm Bruit of left carotid artery Dizziness Procedures US CAROTID ARTERIES [facility] DUPLEX SCAN EXTRACRANIAL ART COMPL BI STUDY Nora Crespo APRN.CNP [address] [place], [place] [id number] [facility] [address] [place] [address] Referral ID Status Reason Start Date Expiration Date Visits Requested Visits Authorized [id number] Authorized Auto-Generat ed Referral 09/23/2022 09/23/2023 1 1 [facility] for referral (narrative)* Diagnostic Procedure Only (Routine) - Closed Specialty Diagnoses / Procedures Referred By Apurvaac t Referred To Contact [facility] IMAG[facility] Diagnoses Lower abdominal pain Abdominal aneurysm (HCC) Dizziness Procedures US ABD AORTA US RETROPERITONEAL REAL TIME W/IMAGE LIMITED Nora Crespo APRN.CNP [address] [place] [address] [place] [address] Referral ID Status Reason Start Date Expiration Date V isits Requested Visits Authorized [id number] Closed Auto-Generate d Referral 09/23/2022 10/23/2023 1 1 [facility] Diagnostic Procedure Only (Routine) - Pending Review Specialty Diagnoses / Procedures Referred By Karma rothman Referred To Contact [facility] Diagnoses Encounter for screening mammogram for breast cancer Procedures YANG SCREENING SCREENING MAMMOGRAPHY BI 2-VIEW BREAST INC CAD Gabriel Galvan MD [address] [place] [address] [facility] [address] [place] [address] Referral ID Status Reason Start Date Expiration Date Visits Requested Visits Authorized [id number] Pending Review Auto-Generat ed Referral 08/12/2023 09/10/2024 1 1 [facility] for referral (narrative)* Outpatient Procedure (Routine) - New Request Specialty Diagnoses / Procedures Referred By Karma rothman Referred To Contact [facility] Diagnoses Hiatal hernia Procedures EGD DIAGNOSTIC ESOPHAGOGASTRODUODENOSC OPY TRANSORAL DIAGNOSTIC Jamie Orr MD [address] [place] [id number] [facility] [address] [place] [address] Referral ID Status Reason Start Date Expiration Date Visits Requested Visits Authorized [id number] New Request Auto-Generat ed Referral 06/24/2025 1 1 * Outpatient Procedure (Routine) - New Request Specialty Diagnoses / Procedures Referred By Karma rothman Referred To Contact [facility] Diagnoses Hiatal hernia Procedures MANOMETRY ESOPHAGEAL ESOPHAGEAL MOTILITY STUDY W/INTERP&RPT Jamie Orr MD [address] [place] [address] [facility] [address] [place] [address] Referral ID Status Reason Start Date Expiration Date Visits Requested Visits Authorized [id number] New Request Auto-Generat ed Referral 06/24/2025 1 1 [facility] for referral (narrative)* Diagnostic Procedure Only (Routine) - New Request Specialty Diagnoses / Procedures Referred By Contac t Referred To Contact [facility] Diagnoses Encounter for screening mammogram for breast cancer Procedures YANG SCREENING W GANESH SCREENING DIGITAL BREAST TOMOSYNTHESIS BI SCREENING MAMMOGRAPHY BI 2-VIEW BREAST INC CAD Gabriel Galvan MD [address] [place] [address] [facility] [address] [place] [address] Referral ID Status Reason Start Date Expiration Date Visits Requested Visits Authorized [id number] New Request Auto-Generat ed Referral 08/19/2025 1 1 [facility] for referral (narrative)* Outpatient Procedure (Routine) - New Request Specialty Diagnoses / Procedures [facility] Diagnoses Chronic obstructive pulmonary disease, unspecified COPD type (HCC) Procedures SPIROMETRY WITH DILATOR IF OBSTRUCTED BRNCDILAT RSPSE SPMTRY PRE&POST-BRNCDILAT ADMN Peyton Torres MD [address] [place] [address] [facility] [address] [place] [address] Referral ID Status Reason Start Date Expiration Date Visits Requested Visits Authorized [id number] New Request Auto-Generat ed Referral 09/30/2024 10/29/2025 1 1 * Outpatient Procedure (Routine) - New Request Specialty Diagnoses / Procedures Referred By Contac t Referred To Contact [facility] Diagnoses Chronic obstructive pulmonary disease, unspecified COPD type (HCC) Procedures LUNG DIFFUSION CAPACITY (DLCO) DIFFUSING CAPACITY Peyton Torres MD [address] [place] [address] [facility] [address] [place] [address] Referral ID Status Reason Start Date Expiration Date Visits Requested Visits Authorized [id number] New Request Auto-Generat ed Referral 09/30/2024 10/29/2025 1 1 [facility] for referral (narrative)No reason for referral information available[facility] Work Phone: Summary Purpose Family History No [...] Sanju Douglas Child Primary Decision Maker [phone] (Mobile) Latest Code Status on File Code Status Date Activated Date Inactivated Comments Full Code 06/16/2021 3:05 AM Full Code 06/14/2021 3:52 PM 06/15/2021 4:09 AM Healthcare Agents on File Name Relationship Healthcare Agent Relationshi p Communication Sanju Douglas Child Primary Decision Maker [phone] (Mobile) Latest Code Status on File Code Status Date Activated Date Inactivated Comments Full Code 06/16/2021 3:05 AM 06/18/2021 5:10 PM Healthcare Agents on File Name Relationship Healthcare Agent Relationshi p Communication Sanju Douglas Child Primary Decision Maker [phone] (Mobile) Advance Directive Response Recorded Date/ Time Advance Directives No September 15, 2017 8:33pm Living Will No November 25, 2021 9:21pm Power of Junior Account Executive No November 25 9:21pm Advance Directive Response Recorded Date/ Time Advance Directives No September 15, 2017 8:33pm Living Will No January 01, 2022 1:48am Power of Junior Account Executive No January 01 1:48am Documents on File Type Date Recorded Patient Stitcher Set Up Operator Automatic Expl anation Advance Directive(s) 09/13/2019 12:48 PM Advance Directive(s) 08/23/2019 8:47 PM Advance Directive(s) 04/16/2016 12:37 PM Advance Directive(s) 04/04/2016 12:48 PM Advance Directive Response Recorded Date/ Time Advance Directives No September 15, 2017 8:33pm Living Will No January 17, 2022 3 :02am Power of Junior Account Executive No January 17, 2022 3:02am Advance Directive Response Recorded Date/ Time Advance Directives No September 15, 2017 8:33pm Living Will No January 26, 2022 4 :23pm Power of Junior Account Executive No January 26, 2022 4:23pm Advance Directive Response Recorded Date/ Time Advance Directives No September 15, 2017 8:33pm Living Will No June 04, 2022 6:44pm Power of Junior Account Executive No May 6:44pm Advance Directive Response Recorded Date/ Time Advance Directives No September 15, 2017 8:33pm Living Will No June 09 12:15am Power of Junior Account Executive No June 09 12:15am Advance Directive Response Recorded Date/ Time Advance Directives No September 15, 2017 8:33pm Living Will No June 29 9:21am Power of Junior Account Executive No June 29, 2022 9:21am Advance Directive Response Recorded Date/ Time Advance Directives No September 15, 2017 7:33pm Living Will No August 04, 022 1:12am Power of Junior Account Executive No August 04, 2022 1:12am Advance Directive Response Recorded Date/ Time Advance Directives No August 07, 2022 8:59am Living Will No August 08 8:19pm Power of Junior Account Executive No August 08, 2022 8:19pm Advance Directive Response Recorded Date/ Time Advance Directives No August 11, 2022 11:38am Living Will No August 11 11:38am Power of Junior Account Executive No August 11, 2022 11:38am Advance Directive Response Recorded Date/ Time Advance Directives No August 11, 2022 11:38am Living Will No August 23, 022 11:18am Power of Junior Account Executive No August 23, 2022 11:18am Advance Directive Response Recorded Date/ Time Advance Directives No August 11, 2022 11:38am Living Will No August 30 022 1:11pm Power of Junior Account Executive No August 30, 2022 1:11pm Advance Directive Response Recorded Date/ Time Advance Directives No August 11, 2022 11:38am Living Will No September 02 8:03pm Power of Junior Account Executive No September 02, 2022 8:03pm Advance Directive Response Recorded Date/ Time Advance Directives No August 11, 2022 11:38am Living Will No September 30 9:46pm Power of Junior Account Executive No September 30, 2022 9:46pm Advance Directive Response Recorded Date/ Time Advance Directives No August 11, 2022 12:38pm Living Will No January 02, 2023 9:25am Power of Junior Account Executive No January 02 9:25am Advance Directive Response Recorded Date/ Time Advance Directives No August 11, 2022 12:38pm Living Will No January 10, 2023 1: 13pm Power of Junior Account Executive No January 10, 2023 1:13pm Advance Directive Response Recorded Date/ Time Advance Directives No August 11, 2022 12:38pm Living Will No January 12, 2023 10 :45pm Power of Junior Account Executive No January 12, 2023 10:45pm Advance Directive Response Recorded Date/ Time Advance Directives No August 11, 2022 12:38pm Living Will No January 14, 2023 1 :42pm Power of Junior Account Executive No January 14, 2023 1:42pm Advance Directive Response Recorded Date/ Time Advance Directives No August 11, 2022 12:38pm Living Will No January 16, 2023 7 :34am Power of Junior Account Executive No January 16, 2023 7:34am Advance Directive Response Recorded Date/ Time Advance Directives No August 11, 2022 12:38pm Living Will No June 01, 2023 11:37pm Power of Junior Account Executive No May 11:37pm Advance Directive Response Recorded Date/ Time Advance Directives No August 11, 2022 12:38pm Living Will No June 23 4:44pm Power of Junior Account Executive No June 23, 2023 4:44pm Advance Directive Response Recorded Date/ Time Advance Directives No August 11, 2022 11:38am Living Will No July 19 7:52pm Power of Junior Account Executive No July 19, 2023 7:52pm Advance Directive Response Recorded Date/ Time Advance Directives No August 11, 2022 11:38am Living Will No July 29 023 7:49pm Power of Junior Account Executive No July 29, 2023 7:49pm Advance Directive Response Recorded Date/ Time Advance Directives No August 11, 2022 11:38am Living Will No September 05 023 6:51pm Power of Junior Account Executive No September 05, 2023 6:51pm Advance Directive Response Recorded Date/ Time Advance Directives No August 11, 2022 11:38am Living Will No September 23 10:17am Power of Junior Account Executive No September 23, 2023 10:17am Advance Directive Response Recorded Date/ Time Advance Directives No August 11, 2022 11:38am Living Will No September 29 5:44pm Power of Junior Account Executive No September 29, 2023 5:44pm Advance Directive Response Recorded Date/ Time Advance Directives No August 11, 2022 12:38pm Living Will No November 30, 2023 9:43am Power of Junior Account Executive No November 29 9:43am Date Activated Date Inactivated Comments 12/01/2023 4:07 AM Advance Directive Response Recorded Date/ Time Advance Directives No August 11, 2022 12:38pm Living Will No December 29, 2023 9:12am Power of Junior Account Executive No December 28 9:12am Date Activated Date [...] Do you have a Healthcare Power of Junior Account Executive? No September 28, 2024 7:03pm Living Will No November 04 11:49pm Do you have a Healthcare Power of Junior Account Executive? No November 04, 2024 11:49pm Living Will No December 20, 2024 3:42pm Do you have a Healthcare Power of Junior Account Executive? No December 20, 2024 3:42pm Advance Directives No August 11, 2022 12:38pm Advance Directive Response Recorded Date/ Time Living Will No September 28 7:03pm Do you have a Healthcare Power of Junior Account Executive? No September 28, 2024 7:03pm Living Will No November 04, 025 11:49pm Do you have a Healthcare Power of Junior Account Executive? No November 04, 2024 11:49pm Living Will No December 20, 2024 3:42pm Do you have a Healthcare Power of Junior Account Executive? No December 20, 2024 3:42pm Do you have a Healthcare Power of Junior Account Executive? No December 30, 2024 6:28pm Advance Directives No August 11, 2022 12:38pm Advance Directive Response Recorded Date/ Time Living Will No September 28 7:03pm Do you have a Healthcare Power of Junior Account Executive? No September 28, 2024 7:03pm Living Will No November 04, 025 11:49pm Do you have a Healthcare Power of Junior Account Executive? No November 04, 2024 11:49pm Living Will No December 20, 2024 3:42pm Do you have a Healthcare Power of Junior Account Executive? No December 20, 2024 3:42pm Do you have a Healthcare Power of Junior Account Executive? No December 30, 2024 6:28pm Do you have a Healthcare Power of Junior Account Executive? No January 10, 2025 3:59pm Advance Directives No August 11, 2022 12:38pm Advance Directive Response Recorded Date/ Time Do you have a Healthcare Power of Junior Account Executive? 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 Essential hypertension [...] obstructive pulmonary disease 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 Essential hypertension [...] for Visit Dysphagia 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 NICHOLSON (dyspnea on exertion) Ischemic cardiomyopathy LV (left ventricular) mural thrombus Essential hypertension Hyperlipidemia Chief Complaint ER FU ABD PAIN CHEST PAIN BILE DUCT ABNORMALITY SURGICAL CLEARANCE E ORDERS CHEST PAIN CP CP Reason for Visit Dysphagia 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 NICHOLSON (dyspnea on exertion) Ischemic cardiomyopathy LV (left ventricular) mural thrombus Essential hypertension Hyperlipidemia Chief Complaint ER FU ABD PAIN CHEST PAIN BILE DUCT ABNORMALITY SURGICAL CLEARANCE E ORDERS CHEST PAIN CP CP Amb Documentation Reason for Visit Dysphagia 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 NICHOLSON (dyspnea on exertion) Ischemic cardiomyopathy LV (left ventricular) mural thrombus Essential hypertension Hyperlipidemia Chief Complaint ER FU ABD PAIN CHEST PAIN BILE DUCT ABNORMALITY SURGICAL CLEARANCE E ORDERS CHEST PAIN CP CP Amb Documentation ABD PAIN Reason for Visit Dysphagia 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 NICHOLSON (dyspnea on exertion) Ischemic cardiomyopathy LV (left ventricular) mural thrombus Essential hypertension Hyperlipidemia Chief Complaint ER FU ABD PAIN CHEST PAIN BILE DUCT ABNORMALITY SURGICAL CLEARANCE E ORDERS CHEST PAIN CP CP Amb Documentation PREOP ABD PAIN 2 WK FU abdominal pain Reason for Visit Dysphagia 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 NICHOLSON (dyspnea on exertion) Ischemic cardiomyopathy LV (left ventricular) mural thrombus Essential hypertension Hyperlipidemia Barretts esophagus Common bile duct obstruction Dysphagia Chief Complaint ABD PAIN CHEST PAIN BILE DUCT ABNORMALITY SURGICAL CLEARANCE E ORDERS CHEST PAIN CP CP Amb Documentation PREOP ABD PAIN 2 WK FU abdominal pain Reason for Visit Atherosclerotic hear t disease of [place] coronary artery without angina pectoris NICHOLSON (dyspnea [...] for Visit Atherosclerotic hear t disease of [place] coronary artery without angina pectoris NICHOLSON (dyspnea [...] 9:51am LV (left ventricular) mural thrombus Esau uary 2024 9:51am Preop cardiovascular exam October 04, 2024 9:51am Essential hypertension October 04 9:51am Hyperlipidemia October 04, 2024 9 :51am Barretts esophagus January 13, 2025 10:39a m Common bile duct obstruction January 13 10:39am Dysphagia January 13, 2025 10:39a m Chief Complaint Admit Date NSTEMI May 26, 2025 9:32am NSTEMI May 26, 2025 9:42am NSTEMI May 27, 2025 10:03am NSTEMI May 27, 2025 1:25pm NSTEMI May 28, 2025 8:22am NSTEMI May 28, 2025 11:16am NSTEMI May 29, 2025 8:50am NSTEMI May 29, 2025 3:26pm Referral Order June 01, 2025 12:35pm Reason for Visit Admit Date LV (left ventricular) mural thrombus Sep tember 2024 9:32am Nonspecific chest pain May 26, 025 9:32am Essential hypertension May 26, 025 9:32am Hyperlipidemia May 26, 2025 9:32am NSTEMI, [facility] 9:32am Ischemic cardiomyopathy May 26, 2025 9:32am Reason for Referral Specialty Diagnoses / Procedures Referred By Karma rothman Referred To Contact Lyndsey Acevedo, LEAD GENERATION SPECIALIST.[facility] [address] [place] [address] Referral ID Status Reason Start Date Expiration Date Visits Re quested Visits Authorized [id number] Closed 1 1 Specialty Diagnoses / Procedures Referred By Karma rothman Referred To Contact CT IMAGING Diagnoses Encounter for screening for lung cancer Chronic cough Chronic bronchitis, unspecified chronic bronchitis type (HCC) Smoker Procedures CT CHEST WO IVCON DIAGNOSTIC COMPUTED TOMOGRAPHY THORAX W/O CNTRST Nora Crespo, LEAD GENERATION SPECIALIST.[employer] [address] [place] [address] Ct Imaging [place] [address] Referral ID Status Reason Start Date Expiration Date Visits Requested Visits Authorized [id number] Authorized Auto-Generat ed Referral 05/13/2023 06/12/2023 1 1 Specialty Diagnoses / Procedures Referred By Contac t Referred To Contact CT IMAGING Diagnoses Infection in abdomen (HCC) Procedures CT ABD/PEL W IVCON CT ABD & PELVIS W/CONTRAST Darrell Tejada MD [address] [place] [address] [place] [address] Referral ID Status Reason Start Date Expiration Date Visits Requested Visits Authorized [id number] Authorized Auto-Generat ed Referral 01/05/2024 02/03/2025 1 1 Specialty Diagnoses / Procedures Referred By Contac t Referred To Contact Podiatry Diagnoses Gait instability Ankle weakness Peripheral neuropathic pain Procedures CONSULT TO PODIATRY OFFICE/OUTPATIENT [facility] 60 MINUTES Gabriel Galvan MD [address] [place] [address] Scot Santos [address] [place] [address] Referral ID Status Reason Start Date Expiration Date Visits Requested Visits Authorized [id number] Authorized PCP Requested Referral 11/25/2023 11/24/2024 1 1 Specialty Diagnoses / Procedures Referred By Contac t Referred To Contact CT IMAGING Diagnoses Infection in abdomen (HCC) Procedures CT ABDOMEN WO IVCON CT ABDOMEN W/O CONTRAST Darrell Tejada MD [address] [place] [address] Ct Imaging [facility] Referral ID Status Reason Start Date Expiration Date V isits Requested Visits Authorized [id number] Closed Auto-Generate d Referral 01/20/2024 02/19/2024 1 1 Specialty Diagnoses / Procedures Referred By Contac t Referred To Contact CT IMAGING Diagnoses Generalized abdominal pain Procedures CT ABD/PEL WO IVCON CT ABD & PELVIS W/O CONTRAST Nora Crespo APRN.[employer] [address] [place] [address] [place] [address] Referral ID Status Reason Start Date Expiration Date Visits Requested Visits Authorized [id number] Authorized Auto-Generat ed Referral 03/14/2024 04/13/2025 1 1 Referral ID Status Reason Start Date Expiration Date V isits Requested Visits Authorized [id number] Closed Auto-Generat ed Referral Patient Cleared - Admin/Chairm an/Director advise to proceed or did not respond 03/18/2024 05/17/2024 2 2 Specialty Diagnoses / Procedures Referred By Contac t Referred To Contact General Surgery Diagnoses Hiatal hernia Generalized abdominal pain History of abdominal abscess Procedures CONSULT TO GENERAL SURGERY OFFICE/OUTPATIENT [facility] 60 MINUTES Nora Crespo APRN.[facility] [address] [place] [address] Referral ID Status Reason Start Date Expiration Date Visits Requested Visits Authorized [id number] Authorized PCP Requested Referral 04/11/2024 04/11/2025 1 1 Specialty Diagnoses / Procedures Referred By Contac t Referred To Contact Gastroenterology Diagnoses Hiatal hernia Generalized abdominal pain History of abdominal abscess Procedures CONSULT TO GASTROENTEROLOGY OFFICE/OUTPATIENT [facility] 60 MINUTES Nora Crespo APRN.[facility] [address] [place] [address] Referral ID Status Reason Start Date Expiration Date Visits Requested Visits Authorized [id number] Authorized PCP Requested Referral 04/11/2024 04/11/2025 1 1 Specialty Diagnoses / Procedures Referred By Contac t Referred To Contact General Surgery Diagnoses Hiatal hernia Generalized abdominal pain History of abdominal abscess Procedures CONSULT TO GENERAL SURGERY OFFICE/OUTPATIENT [facility] 60 MINUTES Darrell Tejada MD [address] [place] [address] Scot Mcduffie MD [address] [place] [address] Referral ID Status Reason Start Date Expiration Date Visits Requested Visits Authorized [id number] Authorized PCP Requested Referral 04/25/2024 04/25/2025 1 1 Specialty Diagnoses / Procedures Referred By Contac t Referred To Contact Podiatry Diagnoses Chronic pain of both ankles Chronic pain of both feet Procedures CONSULT TO PODIATRY OFFICE/OUTPATIENT [facility] 60 MINUTES Gabriel Galvan MD [address] [place] [address] [address] [place] [address] Referral ID Status Reason Start Date Expiration Date Visits Requested Visits Authorized [id number] Authorized PCP Requested Referral 09/14/2024 09/14/2025 1 1 Health Concerns Infection Onset Date Last Indicated Resolved Time COVID-19 Rule-Out 11/30/2023 11/30/2023 11/30/2023 11:19 PM EDT Additional Source Comments INFORMATION SOURCE (unrecogn ized section and content) DATE CREATED AUTHOR 09/15/2019 [facility] DATE CREATED AUTHOR AUTHOR'S ORGANIZ ATION 11/23/2019 [facility] DATE CREATED AUTHOR AUTHOR'S ORGANIZ ATION 07/29/2021 [facility] DATE CREATED AUTHOR AUTHOR'S ORGANIZ ATION 12/20/2023 [facility] ([place]) DATE CREATED AUTHOR AUTHOR'S ORGANIZ ATION 01/07/2024 [facility] ([place] DATE CREATED AUTHOR AUTHOR'S ORGANIZ ATION 01/26/2024 [facility] DATE CREATED AUTHOR AUTHOR'S ORGANIZ ATION 05/26/2025 [facility] DATE CREATED AUTHOR AUTHOR'S ORGANIZ ATION 06/20/2025 [facility] DATE CREATED AUTHOR AUTHOR'S ORGANIZ ATION 07/15/2025 [facility] Reason for Visit (unrecogniz ed section and content) Reason Comments Radiology CT Specialty Diagnoses / Procedures Referred By Contac t Referred To Contact CT IMAGING Diagnoses Generalized abdominal pain Procedures CT ABD/PEL WO IVCON CT ABD & PELVIS W/O CONTRAST Nora Crespo APRN.[employer] [address] [place] [address] Ct Imaging [facility] Referral ID Status Reason Start Date Expiration Date V isits Requested Visits Authorized [id number] Closed Auto-Generat ed Referral Patient Cleared - [...] 05/01/2023 Specialty Diagnoses / Procedures Referred By Contac t Referred To Contact [facility] Diagnoses Neuropathy Procedures EMG(NEURO/NI) NERVE CONDUCTION STUDIES 9-10 STUDIES Nora Crespo APRN.[facility] [address] [place] [id number] [facility] [place] [address] [place] [address] Referral ID Status Reason Start Date Expiration Date V isits Requested Visits Authorized [id number] Closed Auto-Generate d Referral 04/15/2023 04/15/2024 1 1 Reason Comments Results EMG Reason Comments Radiology US Specialty Diagnoses / Procedures Referred By Contac t Referred To Contact US IMAGING Diagnoses Lower abdominal pain Abdominal aneurysm (HCC) Dizziness Procedures US ABD AORTA US RETROPERITONEAL REAL TIME W/IMAGE LIMITED Nora Crespo APRN.[facility] [address] [id number] Us [facility] [place] [address] Referral ID Status Reason Start Date Expiration Date V isits Requested Visits Authorized [id number] Closed Auto-Generate d Referral 09/23/2022 10/23/2023 1 [...] W/O CONTRAST Darrell Tejada MD [address] [place] [address] [place] [address] Referral ID Status Reason Start Date Expiration Date V isits Requested Visits Authorized [id number] Closed Auto-Generate d Referral 01/20/2024 02/19/2024 1 [...] abscess Procedures CONSULT TO GENERAL SURGERY OFFICE/OUTPATIENT [facility] 60 MINUTES Nora Crespo APRN.[employer] [address] [place] [address] Referral ID Status Reason Start Date Expiration Date V isits Requested Visits Authorized [id number] Closed PCP Requested Referral 04/11/2024 04/11/2025 1 [...] Onset Date Comments Transition Of Care 10/03/2024 [facility] Discharge 09/30/24 Reason Comments Patient Question Reason Onset Date Comments Transition Of Care 10/10/2024 [facility] Folow-up Day 10 Reason Comments Outpatient Endoscopy Reason Onset Date Comments Transition Of Care 10/26/2024 [facility]- Follow-up Day 26 Reason Comments Form: [facility] Reason Onset Date Comments Allied Health Visit 11/21/2024 Medication A dherence Outreach Reason Onset Date Comments Population Health Navigation Outreach 12/06/2024 Viviena workbencmarianne zimmer Reason Onset Date Comments ACM MANUELA RN [...] at 1200 1147 (Given - Provider: Bimal Ambriz RN) 0951 (Given - Provider: Bimal Ambriz, WENDY) lisinopril (PRINIVIL;ZESTRIL) tablet 20 mg [...] Singer, WENDY) 0951 (Given - Provider: Bimal Ambriz RN)2000 [...] RN) 0951 (Given - Provider: Bimal Ambriz RN)2100 (Due) PRN Medication Order 06/16/2021 [...] Triana RN) 1146 (Given - Provider: Bimal Ambriz RN) 0438 (Given - Provider: Tita [...] Singer RN) 2032 (Given - Provider: Tita M Neugebauer, RN) ondansetron (ZOFRAN) injection 4 mg 4 mg, IntraVENous, EVERY 6 HOURS PRN, Nausea, Vomiting, Starting on 06/16/21 at 1020 1101 (Given - Provider: Layla Triana, RN) 1659 (Given - Provider: Bimal Ambriz, WENDY) perflutren lipid microspheres (DEFINITY) injection [...] 5-40 mL, IntraVENous, PRN, Line Care, Per Social Services Designee Request, Starting on 06/16/21 at 0303, For 72 hours, May use order for Line Care after every IV line use and Agitated Saline Bubble Study. Administration for Bubble Study per tube worker request for only. Remove 1 mL 0.9% [...] prosecute any alcohol or drug abuse patient.[facility] the event this information is protected by the Federal Confidentiality of Alcohol and Drug Abuse Patient Records regulations: The Federal rules restrict any use of the information to criminally investigate or prosecute any alcohol or drug abuse patient.[facility]In the event this information is protected by the Federal Confidentiality of Alcohol and Drug Abuse Patient Records regulations: The Federal rules restrict any use of the information to criminally investigate or prosecute any alcohol or drug abuse patient.[facility] CampusIn the event this information is protected by the Federal Confidentiality of Alcohol and Drug Abuse Patient Records regulations: The Federal rules restrict any use of the information to criminally investigate or prosecute any alcohol or drug abuse patient.[facility] CampusIn the event this information is protected by the Federal Confidentiality of Alcohol and Drug Abuse Patient Records regulations: The Federal rules restrict any use of the information to criminally investigate or prosecute any alcohol or drug abuse patient.[facility] [place] CampusIn the event this information is protected by the Federal Confidentiality of Alcohol and Drug Abuse Patient Records regulations: The Federal rules restrict any use of the information to criminally investigate or prosecute any alcohol or drug abuse patient.[facility] [place] CampusIn the event this information is protected by the Federal Confidentiality of Alcohol and Drug Abuse Patient Records regulations: The Federal rules restrict any use of the information to criminally investigate or prosecute any alcohol or drug abuse patient.[facility] [place] CampusIn the event this information is protected by the Federal Confidentiality of Alcohol and Drug Abuse Patient Records regulations: The Federal rules restrict any use of the information to criminally investigate or prosecute any alcohol or drug abuse patient.[facility] [place] CampusIn the event this information is protected by the Federal Confidentiality of Alcohol and Drug Abuse Patient Records regulations: The Federal rules restrict any use of the information to criminally investigate or prosecute any alcohol or drug abuse patient.[facility] CampusIn the event this information is protected by the Federal Confidentiality of Alcohol and Drug Abuse Patient Records regulations: The Federal rules restrict any use of the information to criminally investigate or prosecute any alcohol or drug abuse patient.[facility] CampusIn the event this information is protected by the Federal Confidentiality of Alcohol and Drug Abuse Patient Records regulations: The Federal rules restrict any use of the information to criminally investigate or prosecute any alcohol or drug abuse patient.[facility] CampusIn the event this information is protected by the Federal Confidentiality of Alcohol and Drug Abuse Patient Records regulations: The Federal rules restrict any use of the information to criminally investigate or prosecute any alcohol or drug abuse patient.[facility] [place] CampusIn the event this information is protected by the Federal Confidentiality of Alcohol and Drug Abuse Patient Records regulations: The Federal rules restrict any use of the information to criminally investigate or prosecute any alcohol or drug abuse patient.[facility] [place] CampusIn the event this information is protected by the Federal Confidentiality of Alcohol and Drug Abuse Patient Records regulations: The Federal rules restrict any use of the information to criminally investigate or prosecute any alcohol or drug abuse patient.[facility] [place] CampusIn the event this information is protected by the Federal Confidentiality of Alcohol and Drug Abuse Patient Records regulations: The Federal rules restrict any use of the information to criminally investigate or prosecute any alcohol or drug abuse patient.[facility] [place] CampusIn the event this information is protected by the Federal Confidentiality of Alcohol and Drug Abuse Patient Records regulations: The Federal rules restrict any use of the information to criminally investigate or prosecute any alcohol or drug abuse patient.[facility] [place] CampusIn the event this information is protected by the Federal Confidentiality of Alcohol and Drug Abuse Patient Records regulations: The Federal rules restrict any use of the information to criminally investigate or prosecute any alcohol or drug abuse patient.[facility] CampusIn the event this information is protected by the Federal Confidentiality of Alcohol and Drug Abuse Patient Records regulations: The Federal rules restrict any use of the information to criminally investigate or prosecute any alcohol or drug abuse patient.[facility] CampusIn the event this information is protected by the Federal Confidentiality of Alcohol and Drug Abuse Patient Records regulations: The Federal rules restrict any use of the information to criminally investigate or prosecute any alcohol or drug abuse patient.[facility] [place] CampusIn the event this information is protected by the Federal Confidentiality of Alcohol and Drug Abuse Patient Records regulations: The Federal rules restrict any use of the information to criminally investigate or prosecute any alcohol or drug abuse patient.[facility] [place] CampusIn the event this information is protected by the Federal Confidentiality of Alcohol and Drug Abuse Patient Records regulations: The Federal rules restrict any use of the information to criminally investigate or prosecute any alcohol or drug abuse patient.[facility] [place] CampusIn the event this information is protected by the Federal Confidentiality of Alcohol and Drug Abuse Patient Records regulations: The Federal rules restrict any use of the information to criminally investigate or prosecute any alcohol or drug abuse patient.[facility] [place] CampusIn the event this information is protected by the Federal Confidentiality of Alcohol and Drug Abuse Patient Records regulations: The Federal rules restrict any use of the information to criminally investigate or prosecute any alcohol or drug abuse patient.[facility] [place] CampusIn the event this information is protected by the Federal Confidentiality of Alcohol and Drug Abuse Patient Records regulations: The Federal rules restrict any use of the information to criminally investigate or prosecute any alcohol or drug abuse patient.[facility] [place] CampusIn the event this information is protected by the Federal Confidentiality of Alcohol and Drug Abuse Patient Records regulations: The Federal rules restrict any use of the information to criminally investigate or prosecute any alcohol or drug abuse patient.[facility] [place] CampusIn the event this information is protected by the Federal Confidentiality of Alcohol and Drug Abuse Patient Records regulations: The Federal rules restrict any use of the information to criminally investigate or prosecute any alcohol or drug abuse patient.[facility] [place] CampusIn the event this information is protected by the Federal Confidentiality of Alcohol and Drug Abuse Patient Records regulations: The Federal rules restrict any use of the information to criminally investigate or prosecute any alcohol or drug abuse patient.[facility] [place] CampusIn the event this information is protected by the Federal Confidentiality of Alcohol and Drug Abuse Patient Records regulations: The Federal rules restrict any use of the information to criminally investigate or prosecute any alcohol or drug abuse patient.[facility] [place] CampusIn the event this information is protected by the Federal Confidentiality of Alcohol and Drug Abuse Patient Records regulations: The Federal rules restrict any use of the information to criminally investigate or prosecute any alcohol or drug abuse patient.[facility] [place] CampusIn the event this information is protected by the Federal Confidentiality of Alcohol and Drug Abuse Patient Records regulations: The Federal rules restrict any use of the information to criminally investigate or prosecute any alcohol or drug abuse patient.[facility] [place] CampusIn the event this information is protected by the Federal Confidentiality of Alcohol and Drug Abuse Patient Records regulations: The Federal rules restrict any use of the information to criminally investigate or prosecute any alcohol or drug abuse patient.[facility] [place] CampusIn the event this information is protected by the Federal Confidentiality of Alcohol and Drug Abuse Patient Records regulations: The Federal rules restrict any use of the information to criminally investigate or prosecute any alcohol or drug abuse patient.[facility] [place] CampusIn the event this information is protected by the Federal Confidentiality of Alcohol and Drug Abuse Patient Records regulations: The Federal rules restrict any use of the information to criminally investigate or prosecute any alcohol or drug abuse patient.[facility] [place] CampusIn the event this information is protected by the Federal Confidentiality of Alcohol and Drug Abuse Patient Records regulations: The Federal rules restrict any use of the information to criminally investigate or prosecute any alcohol or drug abuse patient.[facility] [place] CampusIn the event this information is protected by the Federal Confidentiality of Alcohol and Drug Abuse Patient Records regulations: The Federal rules restrict any use of the information to criminally investigate or prosecute any alcohol or drug abuse patient.[facility] [place] CampusIn the event this information is protected by the Federal Confidentiality of Alcohol and Drug Abuse Patient Records regulations: The Federal rules restrict any use of the information to criminally investigate or prosecute any alcohol or drug abuse patient.[facility] [place] CampusIn the event this information is protected by the Federal Confidentiality of Alcohol and Drug Abuse Patient Records regulations: The Federal rules restrict any use of the information to criminally investigate or prosecute any alcohol or drug abuse patient.[facility] [place] CampusIn the event this information is protected by the Federal Confidentiality of Alcohol and Drug Abuse Patient Records regulations: The Federal rules restrict any use of the information to criminally investigate or prosecute any alcohol or drug abuse patient.[facility] [place] CampusIn the event this information is protected by the Federal Confidentiality of Alcohol and Drug Abuse Patient Records regulations: The Federal rules restrict any use of the information to criminally investigate or prosecute any alcohol or drug abuse patient.[facility] [place] CampusIn the event this information is protected by the Federal Confidentiality of Alcohol and Drug Abuse Patient Records regulations: The Federal rules restrict any use of the information to criminally investigate or prosecute any alcohol or drug abuse patient.[facility] [place] CampusIn the event this information is protected by the Federal Confidentiality of Alcohol and Drug Abuse Patient Records regulations: The Federal rules restrict any use of the information to criminally investigate or prosecute any alcohol or drug abuse patient.[facility] [place] CampusIn the event this information is protected by the Federal Confidentiality of Alcohol and Drug Abuse Patient Records regulations: The Federal rules restrict any use of the information to criminally investigate or prosecute any alcohol or drug abuse patient.[facility] [place] CampusIn the event this information is protected by the Federal Confidentiality of Alcohol and Drug Abuse Patient Records regulations: The Federal rules restrict any use of the information to criminally investigate or prosecute any alcohol or drug abuse patient.[facility] [place] CampusIn the event this information is protected by the Federal Confidentiality of Alcohol and Drug Abuse Patient Records regulations: The Federal rules restrict any use of the information to criminally investigate or prosecute any alcohol or drug abuse patient.[facility] [place] CampusIn the event this information is protected by the Federal Confidentiality of Alcohol and Drug Abuse Patient Records regulations: The Federal rules restrict any use of the information to criminally investigate or prosecute any alcohol or drug abuse patient.[facility] [place] CampusIn the event this information is protected by the Federal Confidentiality of Alcohol and Drug Abuse Patient Records regulations: The Federal rules restrict any use of the information to criminally investigate or prosecute any alcohol or drug abuse patient.[facility] [place] CampusIn the event this information is protected by the Federal Confidentiality of Alcohol and Drug Abuse Patient Records regulations: The Federal rules restrict any use of the information to criminally investigate or prosecute any alcohol or drug abuse patient.[facility] [place] CampusIn the event this information is protected by the Federal Confidentiality of Alcohol and Drug Abuse Patient Records regulations: The Federal rules restrict any use of the information to criminally investigate or prosecute any alcohol or drug abuse patient.[facility] [place] CampusIn the event this information is protected by the Federal Confidentiality of Alcohol and Drug Abuse Patient Records regulations: The Federal rules restrict any use of the information to criminally investigate or prosecute any alcohol or drug abuse patient.[facility] [place] CampusIn the event this information is protected by the Federal Confidentiality of Alcohol and Drug Abuse Patient Records regulations: The Federal rules restrict any use of the information to criminally investigate or prosecute any alcohol or drug abuse patient.[facility] [place] CampusIn the event this information is protected by the Federal Confidentiality of Alcohol and Drug Abuse Patient Records regulations: The Federal rules restrict any use of the information to criminally investigate or prosecute any alcohol or drug abuse patient.[facility] [place] CampusIn the event this information is protected by the Federal Confidentiality of Alcohol and Drug Abuse Patient Records regulations: The Federal rules restrict any use of the information to criminally investigate or prosecute any alcohol or drug abuse patient.[facility] [place] CampusIn the event this information is protected by the Federal Confidentiality of Alcohol and Drug Abuse Patient Records regulations: The Federal rules restrict any use of the information to criminally investigate or prosecute any alcohol or drug abuse patient.[facility] [place] CampusIn the event this information is protected by the Federal Confidentiality of Alcohol and Drug Abuse Patient Records regulations: The Federal rules restrict any use of the information to criminally investigate or prosecute any alcohol or drug abuse patient.[facility] [place] CampusIn the event this information is protected by the Federal Confidentiality of Alcohol and Drug Abuse Patient Records regulations: The Federal rules restrict any use of the information to criminally investigate or prosecute any alcohol or drug abuse patient.[facility] [place] CampusIn the event this information is protected by the Federal Confidentiality of Alcohol and Drug Abuse Patient Records regulations: The Federal rules restrict any use of the information to criminally investigate or prosecute any alcohol or drug abuse patient.[facility] [place] CampusIn the event this information is protected by the Federal Confidentiality of Alcohol and Drug Abuse Patient Records regulations: The Federal rules restrict any use of the information to criminally investigate or prosecute any alcohol or drug abuse patient.[facility] [place] CampusIn the event this information is protected by the Federal Confidentiality of Alcohol and Drug Abuse Patient Records regulations: The Federal rules restrict any use of the information to criminally investigate or prosecute any alcohol or drug abuse patient.[facility] [place] CampusIn the event this information is protected by the Federal Confidentiality of Alcohol and Drug Abuse Patient Records regulations: The Federal rules restrict any use of the information to criminally investigate or prosecute any alcohol or drug abuse patient.[facility] [place] CampusIn the event this information is protected by the Federal Confidentiality of Alcohol and Drug Abuse Patient Records regulations: The Federal rules restrict any use of the information to criminally investigate or prosecute any alcohol or drug abuse patient.[facility] [place] CampusIn the event this information is protected by the Federal Confidentiality of Alcohol and Drug Abuse Patient Records regulations: The Federal rules restrict any use of the information to criminally investigate or prosecute any alcohol or drug abuse patient.[facility] [place] CampusIn the event this information is protected by the Federal Confidentiality of Alcohol and Drug Abuse Patient Records regulations: The Federal rules restrict any use of the information to criminally investigate or prosecute any alcohol or drug abuse patient.[facility] [place] CampusIn the event this information is protected by the Federal Confidentiality of Alcohol and Drug Abuse Patient Records regulations: The Federal rules restrict any use of the information to criminally investigate or prosecute any alcohol or drug abuse patient.[facility] [place] CampusIn the event this information is protected by the Federal Confidentiality of Alcohol and Drug Abuse Patient Records regulations: The Federal rules restrict any use of the information to criminally investigate or prosecute any alcohol or drug abuse patient.[facility] [place] CampusIn the event this information is protected by the Federal Confidentiality of Alcohol and Drug Abuse Patient Records regulations: The Federal rules restrict any use of the information to criminally investigate or prosecute any alcohol or drug abuse patient.[facility] [place] CampusIn the event this information is protected by the Federal Confidentiality of Alcohol and Drug Abuse Patient Records regulations: The Federal rules restrict any use of the information to criminally investigate or prosecute any alcohol or drug abuse patient.[facility] [place] CampusIn the event this information is protected by the Federal Confidentiality of Alcohol and Drug Abuse Patient Records regulations: The Federal rules restrict any use of the information to criminally investigate or prosecute any alcohol or drug abuse patient.[facility] [place] CampusIn the event this information is protected by the Federal Confidentiality of Alcohol and Drug Abuse Patient Records regulations: The Federal rules restrict any use of the information to criminally investigate or prosecute any alcohol or drug abuse patient.[facility] [place] CampusIn the event this information is protected by the Federal Confidentiality of Alcohol and Drug Abuse Patient Records regulations: The Federal rules restrict any use of the information to criminally investigate or prosecute any alcohol or drug abuse patient.[facility] [place] CampusIn the event this information is protected by the Federal Confidentiality of Alcohol and Drug Abuse Patient Records regulations: The Federal rules restrict any use of the information to criminally investigate or prosecute any alcohol or drug abuse patient.[facility] [place] CampusIn the event this information is protected by the Federal Confidentiality of Alcohol and Drug Abuse Patient Records regulations: The Federal rules restrict any use of the information to criminally investigate or prosecute any alcohol or drug abuse patient.[facility] [place] CampusIn the event this information is protected by the Federal Confidentiality of Alcohol and Drug Abuse Patient Records regulations: The Federal rules restrict any use of the information to criminally investigate or prosecute any alcohol or drug abuse patient.[facility] [place] CampusIn the event this information is protected by the Federal Confidentiality of Alcohol and Drug Abuse Patient Records regulations: The Federal rules restrict any use of the information to criminally investigate or prosecute any alcohol or drug abuse patient.[facility] [place] CampusIn the event this information is protected by the Federal Confidentiality of Alcohol and Drug Abuse Patient Records regulations: The Federal rules restrict any use of the information to criminally investigate or prosecute any alcohol or drug abuse patient.[facility] [place] CampusIn the event this information is protected by the Federal Confidentiality of Alcohol and Drug Abuse Patient Records regulations: The Federal rules restrict any use of the information to criminally investigate or prosecute any alcohol or drug abuse patient.[facility] [place] CampusIn the event this information is protected by the Federal Confidentiality of Alcohol and Drug Abuse Patient Records regulations: The Federal rules restrict any use of the information to criminally investigate or prosecute any alcohol or drug abuse patient.[facility] [place] CampusIn the event this information is protected by the Federal Confidentiality of Alcohol and Drug Abuse Patient Records regulations: The Federal rules restrict any use of the information to criminally investigate or prosecute any alcohol or drug abuse patient.[facility] [place] CampusIn the event this information is protected by the Federal Confidentiality of Alcohol and Drug Abuse Patient Records regulations: The Federal rules restrict any use of the information to criminally investigate or prosecute any alcohol or drug abuse patient.[facility] [place] CampusIn the event this information is protected by the Federal Confidentiality of Alcohol and Drug Abuse Patient Records regulations: The Federal rules restrict any use of the information to criminally investigate or prosecute any alcohol or drug abuse patient.[facility] [place] CampusIn the event this information is protected by the Federal Confidentiality of Alcohol and Drug Abuse Patient Records regulations: The Federal rules restrict any use of the information to criminally investigate or prosecute any alcohol or drug abuse patient.[facility] [place] CampusIn the event this information is protected by the Federal Confidentiality of Alcohol and Drug Abuse Patient Records regulations: The Federal rules restrict any use of the information to criminally investigate or prosecute any alcohol or drug abuse patient.[facility] [place] CampusIn the event this information is protected by the Federal Confidentiality of Alcohol and Drug Abuse Patient Records regulations: The Federal rules restrict any use of the information to criminally investigate or prosecute any alcohol or drug abuse patient.[facility] [place] CampusIn the event this information is protected by the Federal Confidentiality of Alcohol and Drug Abuse Patient Records regulations: The Federal rules restrict any use of the information to criminally investigate or prosecute any alcohol or drug abuse patient.[facility] [place] CampusIn the event this information is protected by the Federal Confidentiality of Alcohol and Drug Abuse Patient Records regulations: The Federal rules restrict any use of the information to criminally investigate or prosecute any alcohol or drug abuse patient.[facility] [place] CampusIn the event this information is protected by the Federal Confidentiality of Alcohol and Drug Abuse Patient Records regulations: The Federal rules restrict any use of the information to criminally investigate or prosecute any alcohol or drug abuse patient.[facility] [place] CampusIn the event this information is protected by the Federal Confidentiality of Alcohol and Drug Abuse Patient Records regulations: The Federal rules restrict any use of the information to criminally investigate or prosecute any alcohol or drug abuse patient.[facility] [place] CampusIn the event this information is protected by the Federal Confidentiality of Alcohol and Drug Abuse Patient Records regulations: The Federal rules restrict any use of the information to criminally investigate or prosecute any alcohol or drug abuse patient.[facility] [place] CampusIn the event this information is protected by the Federal Confidentiality of Alcohol and Drug Abuse Patient Records regulations: The Federal rules restrict any use of the information to criminally investigate or prosecute any alcohol or drug abuse patient.[facility] [place] CampusIn the event this information is protected by the Federal Confidentiality of Alcohol and Drug Abuse Patient Records regulations: The Federal rules restrict any use of the information to criminally investigate or prosecute any alcohol or drug abuse patient.[facility] [place] CampusIn the event this information is protected by the Federal Confidentiality of Alcohol and Drug Abuse Patient Records regulations: The Federal rules restrict any use of the information to criminally investigate or prosecute any alcohol or drug abuse patient.[facility] [place] CampusIn the event this information is protected by the Federal Confidentiality of Alcohol and Drug Abuse Patient Records regulations: The Federal rules restrict any use of the information to criminally investigate or prosecute any alcohol or drug abuse patient.[facility] [place] CampusIn the event this information is protected by the Federal Confidentiality of Alcohol and Drug Abuse Patient Records regulations: The Federal rules restrict any use of the information to criminally investigate or prosecute any alcohol or drug abuse patient.[facility] [place] [facility] Care Teams (unrecognized sec tion and content) Technician Assistant Relationship Specialty Start Date End Date Gabriel Galvan MD [address] [place] [address] PCP - General Internal Medicine 08/28/22 Technician Assistant Relationship Specialty Start Date End Date Gabriel Galvan MD [address] [place] [address] PCP - General Internal Medicine 08/28/22 Technician Assistant Relationship Specialty Start Date End Date Gabriel Galvan MD [address] [place] [address] PCP - General Internal Medicine 08/28/22 Team Status: Active Member Role Status Dates Dr. Chucky Martinez MD Family Provider Active Dr. Sudhir Ochoa MD Primary Care Provider Active Team Status: Inactive Member Role Status Dates Dr. Sudhir Ochoa MD Primary Care Provider, Refer ring Provider Active Edna RIBERA, [place] Attending Provider Active Team Status: Active [...] Dr. Clyde Serrano MD Emergency Provider Active Technician Assistant Relationship Specialty Start Date End Date Gabriel Galvan MD [address] [place] [address] PCP - General Internal Medicine 08/28/22 Technician Assistant Relationship Specialty Start Date End Date Gabriel Galvan MD [address] [place], [place] [id number] PCP - General Internal Medicine 08/28/22 Technician Assistant Relationship Specialty Start Date End Date Gabriel Galvan MD [address] [facility] [address] PCP - General Internal Medicine 08/28/22 Technician Assistant Relationship Specialty Start Date End Date Gabriel Galvan MD [address] [facility] [place] [address] PCP - General Internal Medicine 08/28/22 Team [...] MD Admit Provider, Attending Provid er Active Technician Assistant Relationship Specialty Start Date End Date Gabriel Galvan MD [address] [place] [address] PCP - General Internal Medicine 08/28/22 Technician Assistant Relationship Specialty Start Date End Date Gabriel Galvan MD [address] [facility] [place] [address] PCP - General Internal Medicine 08/28/22 Team Status: Active Member Role Status Dates Dr. Chucky Martinez MD Family Provider Active Dr. Gabriel Galvna MD Primary Care Provider Active Team Status: [...] Juan David Chambers DO Emergency Provider Active Technician Assistant Relationship Specialty Start Date End Date Gabriel Galvan MD [address] [place] [address] PCP - General Internal Medicine 08/28/22 Technician Assistant Relationship Specialty Start Date End Date Gabriel Galvan MD [address] [place] [address] PCP - General Internal Medicine 08/28/22 Team Status: Inactive Member Role Status Dates Dr. Gabriel Galvan MD Primary Care Provider Active Dr. Adryan Aguilera DO Attending Provider, Emergency Vale romero Active Team Status: Inactive Member Role Status Dates Dr. Gabriel Galvan MD Primary Care Provider Active Dr. Linus Byers MD Emergency Provider Active Technician Assistant Relationship Specialty Start Date End Date Gabriel Galvan MD [address] [place] [address] PCP - General Internal Medicine 08/28/22 Technician Assistant Relationship Specialty Start Date End Date Gabriel Galvan MD [address] [place] [address] PCP - General Internal Medicine 08/28/22 Team [...] Funk MD Attending Provider, Referring Provider Active Technician Assistant Relationship Specialty Start Date End Date Gabriel Galvan MD [address] [facility] [place] [address] PCP - General Internal Medicine 08/28/22 Technician Assistant Relationship Specialty Start Date End Date Gabriel Galvan MD [address] [facility] [place] [address] PCP - General Internal Medicine 08/28/22 Technician Assistant Relationship Specialty Start Date End Date Gabriel Galvan MD [address] [facility] [place] [address] PCP - General Internal Medicine 08/28/22 Technician Assistant Relationship Specialty Start Date End Date Gabriel Galvan MD [address] [facility] [place] [address] PCP - General Internal Medicine 08/28/22 Technician Assistant Relationship Specialty Start Date End Date Gabriel Galvan MD [address] [facility] [place] [address] PCP - General Internal Medicine 08/28/22 Team [...] Martinez MD Family Provider Active Nora Crespo APRON MAN, APRON MAN-C Primary Care Provider Active Team Status: Inactive Member Role Status Dates Dr. Gabriel Galvan MD Primary Care Provider Active Dr. Ross Lou DO Attending Provider, Emergency Pr ovider Active Team Status: Inactive Member Role Status Dates Nora Crespo APRON MAN, APRON MAN-C Primary Care Provider Active Dr. Lo Chu MD Emergency Provider Active Team Status: Active Member Role Status Dates Dr. Rakesh Martinez DO Attending Provid er, Referring Provider, Other Provider Active Nora Crespo APRON MAN, APRON MAN-C Primary Care Provider Active Team Status: Inactive Member Role Status Dates Dr. Rakesh Martinez DO Attending Provider, Referring Provider Active Nora Crespo APRON MAN, APRON MAN-C Primary Care Provider Active Technician Assistant Relationship Specialty Start Date End Date Gabriel Galvan MD [address] [place] [address] PCP - General Internal Medicine 08/28/22 Team Status: Inactive Member Role Status Dates Nora Crespo APRON MAN, APRON MAN-C Primary Care Provider, Referring Provider Active Marsha Alonso APRON MAN, APRON MAN-C Attending Provider Active Team Status: Active Member Role Status Dates Nora Crespo APRON MAN, APRON MAN-C Primary Care Provider Active Marsha Alonso APRON MAN, APRON MAN-C Attending Provider, Referring P nick Active Team Status: Inactive Member Role Status Dates Dr. Rakesh Martinez DO Attending Provider, Referring Provider Active Nora Crespo APRON MAN, APRON MAN-C Primary Care Provider Active Dr. Alok Forrest MD Other Provider Active Team Status: Inactive Member Role Status Dates Nora Crespo APRON MAN, APRON MAN-C Primary Care Provider Active Dr. Lo Chu MD Attending Provider, Emergency Provider Active Team Status: Active Member Role Status Dates Nora Crespo APRON MAN, APRON MAN-C Primary Care Provider Active Marsha Alonso APRON MAN, APRON MAN-C Referring Provider, Other Provi andreas Active Dr. Ken Banda MD Attending Provider Active Team Status: Inactive Member Role Status Dates Nora Crespo APRON MAN, APRON MAN-C Primary Care Provider Active Marsha Alonso APRON MAN, APRON MAN-C Attending Provider, Referring P romoy Active Team Status: Active Member Role Status Dates Nora Crespo APRON MAN, APRON MAN-C Primary Care Provider Active Marsha Alonso APRON MAN, APRON MAN-C Attending Provider Active Team Status: Active Member Role Status Dates Nora Crespo APRON MAN, APRON MAN-C Primary Care Provider, Referring Provider Active Dr. Rakesh Martinez DO Attending Provider, Other Prov ider Active Team Status: Inactive Member Role Status Dates Nora Crespo APRON MAN, APRON MAN-C Primary Care Provider, Referring Provider Active Dr. Rakesh Martinez DO Attending Provider Active Team Status: Inactive Member Role Status Marilee Crespo APRON MAN, APRON MAN-C Primary Care Provider Active Dr. Keisha Williamson DO Emergency Provider Active Technician Assistant Relationship Specialty Start Date End Date Gabriel Galvan MD [address] [place] [address] PCP - General Internal Medicine 08/28/22 Team Status: Active Member Role Status Dates Nora Crespo APRON MAN, APRON MAN-C Primary Care Provider Active Dr. Jose D Villanueva MD Attending Provider Active Dr. Rakesh Martinez DO Referring Provider Active Team Status: Inactive Member Role Status Marilee Crespo APRON MAN, APRON MAN-C Primary Care Provider Active Dr. Keisha Williamson [...] Active Ed Physician Provider Emergency Provider Active Technician Assistant Relationship Specialty Start Date End Date Gabrile Galvan MD [address] [place], [place] [address] PCP - General Internal Medicine 08/28/22 Technician Assistant Relationship Specialty Start Date End Date Gabriel Galvan MD [address] [place], [place] [address] PCP - General Internal Medicine 08/28/22 Technician Assistant Relationship Specialty Start Date End Date Gabriel Galvan MD [address] [place], [place] [address] PCP - General Internal Medicine 08/28/22 Team Status: Inactive Member Role Status Dates Dr. Gabriel Galvan MD Primary Care Provider Active Dr. Darrell Hathaway DO Attending Provider, Emergency Vale romero Active Team Status: Active Member Role Status Dates Dr. Gabriel Galvan MD Primary Care Provider Active Dr. rAa PETERSEN MD Attending Provider Active Team Status: Inactive Member Role Status Dates Dr. Gabriel Galvan MD Primary Care Provider Active Ed Physician Provider Attending Provider, Emergency Edwin irizarry Active Technician Assistant Relationship Specialty Start Date End Date Gabriel Galvan MD [address] [place], [place] [address] PCP - General Internal Medicine 08/28/22 Technician Assistant Relationship Specialty Start Date End Date Gabriel Galvan MD [address] [place], [place] [address] PCP - General Internal Medicine 08/28/22 Technician Assistant Relationship Specialty Start Date End Date Gabriel Galvan MD [address] [place], [place] [address] PCP - General Internal Medicine 08/28/22 Technician Assistant Relationship Specialty Start Date End Date Gabriel Galvan MD [address] [place] [address] PCP - General Internal Medicine 08/28/22 Technician Assistant Relationship Specialty Start Date End Date Gabriel Galvan MD [address] [place] [address] PCP - General Internal Medicine 08/28/22 Technician Assistant Relationship Specialty Start Date End Date Gabriel Galvan MD [address] [place] [address] PCP - General Internal Medicine 08/28/22 Technician Assistant Relationship Specialty Start Date End Date Gabriel Galvan MD [address] [place] [address] PCP - General Internal Medicine 08/28/22 Technician Assistant Relationship Specialty Start Date End Date Gabriel Galvan MD [address] [place] [address] PCP - General Internal Medicine 08/28/22 Technician Assistant Relationship Specialty Start Date End Date Gabriel Galvan MD [address] [place] [address] PCP - General Internal Medicine 08/28/22 Technician Assistant Relationship Specialty Start Date End Date Gabriel Galvan MD [address] [place] [address] PCP - General Internal Medicine 08/28/22 Technician Assistant Relationship Specialty Start Date End Date Gabriel Galvan MD [address] [place] [address] PCP - General Internal Medicine 08/28/22 Technician Assistant Relationship Specialty Start Date End Date Gabriel Galvan MD [address] [facility] [place] [address] PCP - General Internal Medicine 08/28/22 Technician Assistant Relationship Specialty Start Date End Date Gabriel Galvan MD [address] [facility] [place] [address] PCP - General Internal Medicine 08/28/22 Technician Assistant Relationship Specialty Start Date End Date Gabriel Galvan MD [address] [facility] [place] [address] PCP - General Internal Medicine 08/28/22 Technician Assistant Relationship Specialty Start Date End Date Gabriel Galvan MD [address] [facility] [place] [address] PCP - General Internal Medicine 08/28/22 Technician Assistant Relationship Specialty Start Date End Date Gabriel Galvan MD [address] [facility] [place] [address] PCP - General Internal Medicine 08/28/22 Technician Assistant Relationship Specialty Start Date End Date Gabriel Galvan MD [address] [facility] [place] [address] PCP - General Internal Medicine 08/28/22 Technician Assistant Relationship Specialty Start Date End Date Gabriel Galvan MD [address] [facility] [place] [address] PCP - General Internal Medicine 08/28/22 Technician Assistant Relationship Specialty Start Date End Date Gabriel Galvan MD [address] [facility] [place] [address] PCP - General Internal Medicine 08/28/22 Lyndsey Acevedo, LEAD GENERATION SPECIALIST.CYCLE CONSULTANT [address] [place] [address] [facility] 08/15/24 Nora Crespo LEAD GENERATION SPECIALIST.PILOT CAPTAIN [address] [place] [address] [facility] Internal Medicine 08/15/24 Technician Assistant Relationship Specialty Start Date End Date Gabriel Galvan MD [address] [place] [address] PCP - General Internal Medicine 08/28/22 Lyndsey Acevedo, LEAD GENERATION SPECIALIST.CYCLE CONSULTANT [address] [place] [address] [facility] Internal Medicine 08/15/24 Nora Crespo LEAD GENERATION SPECIALIST.PILOT CAPTAIN [address] [place] [address] [facility] Internal Medicine 08/15/24 Technician Assistant Relationship Specialty Start Date End Date Gabriel Galvan MD [address] [place] [address] PCP - General Internal Medicine 08/28/22 Lyndsey Acevedo, LEAD GENERATION SPECIALIST.CYCLE CONSULTANT [address] [facility] [place] [address] [facility] 08/15/24 Nora Crepso LEAD GENERATION SPECIALIST.PILOT CAPTAIN [address] [place] [address] [facility] 08/15/24 Technician Assistant Relationship Specialty Start Date End Date Gabriel Galvan MD [address] [place] [address] PCP - General Internal Medicine 08/28/22 Lyndsey Acevedo, LEAD GENERATION SPECIALIST.CYCLE CONSULTANT [address] [place] [address] [facility] 08/15/24 Nora Crespo LEAD GENERATION SPECIALIST.PILOT CAPTAIN [address] [place] [address] [facility] Internal Medicine 08/15/24 Bimal Gonzalez, WENDY [address] [place] [address] Primary Care Informatics Nurse 10/03/24 Technician Assistant Relationship Specialty Start Date End Date Gabriel Galvan MD [address] [place] [address] PCP - General Internal Medicine 08/28/22 Lyndsey Acevedo, LEAD GENERATION SPECIALIST.CYCLE CONSULTANT [address] [place] [address] [facility] 08/15/24 Nora Crespo LEAD GENERATION SPECIALIST.PILOT CAPTAIN [facility] [place] [address] [facility] 08/15/24 Bimal Gonzalez, WENDY [address] [place] [address] Primary Care Informatics Nurse 10/03/24 Technician Assistant Relationship Specialty Start Date End Date Gabriel Galvan MD [address] [place] [address] PCP - General Internal Medicine 08/28/22 Lyndsey Acevedo, LEAD GENERATION SPECIALIST.CYCLE CONSULTANT [address] [place] [address] [facility] Internal [facility] 08/15/24 Nora Crespo LEAD GENERATION SPECIALIST.PILOT CAPTAIN [address] [place] [address] [facility] Internal [facility] 08/15/24 Bimal Gonzalez, WENDY [address] [place] [address] Primary Care Informatics Nurse 10/03/24 Technician Assistant Relationship Specialty Start Date End Date Gabriel Galvan MD [address] [place] [address] PCP - General Internal Medicine 08/28/22 Lyndsey Acevedo, LEAD GENERATION SPECIALIST.CYCLE CONSULTANT [address] [place] [address] [facility] Internal [facility] 08/15/24 Nora Crespo LEAD GENERATION SPECIALIST.PILOT CAPTAIN [address] [place] [address] [facility] Internal [facility] 08/15/24 Bimal Gonzalez, WENDY [address] [place] [address] Primary Care Informatics Nurse 10/03/24 Technician Assistant Relationship Specialty Start Date End Date Gabriel Galvan MD [address] [place] [address] PCP - General Internal Medicine 08/28/22 Lyndsey Acevedo, LEAD GENERATION SPECIALIST.CYCLE CONSULTANT [address] [place] [address] [facility] 08/15/24 Nora Crespo APRN.PILOT CAPTAIN [address] [place] [address] [facility] Internal [facility] 08/15/24 Bimal Gonzalez RN [address] [place], [place] [id number] Primary Care Informatics Nurse 10/03/24 Technician Assistant Relationship Specialty Start Date End Date Gabriel Galvan MD [address] [place] [address] PCP - General Internal Medicine 08/28/22 Lyndsey Acevedo, JARRED.CYCLE CONSULTANT [address] [place] [address] [facility] 08/15/24 Nora Crespo APRN.PILOT CAPTAIN [address] [place] [address] [facility] 08/15/24 Technician Assistant Relationship Specialty Start Date End Date Gabriel Galvan MD [address] [place] [address] PCP - General Internal Medicine 08/28/22 Lyndsey Acevedo APRN.CYCLE CONSULTANT [address] [place] [address] [facility] 08/15/24 Nora Crespo APRN.PILOT CAPTAIN [address] [place] [address] [facility] Internal [facility] 08/15/24 Technician Assistant Relationship Specialty Start Date End Date Gabriel Galvan MD [address] [facility] [place] [address] PCP - General Internal Medicine 08/28/22 Lyndsey Acevedo, LEAD GENERATION SPECIALIST.CYCLE CONSULTANT [address] [facility], [place] [address] [facility] 08/15/24 Nora Crespo, LEAD GENERATION SPECIALIST.PILOT CAPTAIN [address] [facility], [place] [address] [facility] Internal [facility] 11/29/24 Team Status: Active Member Role Status Dates Dr. Gabriel Galvan MD Primary Care Provider Active Team Status: Inactive Member Role Status Dates Dr. Gabriel Galvan MD Primary Care Provider Active Start: September 28, 2024 End: September 30, 2024 Dr. Keisha Williamson DO Emergency Provider Active S tart: September 28, [...] December 20, 2024 End: December 20, 2024 Technician Assistant Relationship Specialty Start Date End Date Gabriel Galvan MD [address] [place] [address] PCP - General Internal Medicine 08/28/22 Lyndsey Acevedo APRN.CYCLE CONSULTANT [address] [place] [address] [facility] 08/15/24 Nora Crespo, LEAD GENERATION SPECIALIST.PILOT CAPTAIN [address] [place], [place] [address] [facility] Internal Medicine 11/29/24 Team Status: Inactive Member [...] December 30, 2024 End: December 30, 2024 Technician Assistant Relationship Specialty Start Date End Date Gabriel Galvan MD [address] [place] [address] PCP - General Internal Medicine 08/28/22 Lyndsey Acevedo, LEAD GENERATION SPECIALIST.CYCLE CONSULTANT [address] [place], [place] [address] [facility] Internal Medicine 08/15/24 Nora Crespo, LEAD GENERATION SPECIALIST.PILOT CAPTAIN [address] [place], [place] [address] [facility] Internal Medicine 11/29/24 Team Status: Inactive Member [...] January 10, 2025 End: January 10, 2025 Technician Assistant Relationship Specialty Start Date End Date Gabriel Galvan MD [address] [facility] [place] [address] PCP - General Internal Medicine 08/28/22 Lyndsey Acevedo, LEAD GENERATION SPECIALIST.CYCLE CONSULTANT [address] [facility] [place] [address] [facility] 08/15/24 Nora Crespo APRN.PILOT CAPTAIN [address] [facility] [place] [address] [facility] 11/29/24 Technician Assistant Relationship Specialty Start Date End Date Gabriel Galvan MD [address] [facility] [place] [address] PCP - General Internal Medicine 08/28/22 Lyndsey Acevedo, LEAD GENERATION SPECIALIST.CYCLE CONSULTANT [address] [facility] [place] [address] [facility] 08/15/24 Nora Crespo APRN.PILOT CAPTAIN [address] [facility] [place] [address] [facility] 11/29/24 Technician Assistant Relationship Specialty Start Date End Date Gabriel Galvan MD [address] [facility] [place] [address] PCP - General Internal Medicine 08/28/22 Lyndsey Acevedo, LEAD GENERATION SPECIALIST.CYCLE CONSULTANT [address] [facility] [place] [address] [facility] 08/15/24 Nora Crespo APRN.PILOT CAPTAIN [address] [facility], [place] [address] [facility] Internal Medicine 11/29/24 Technician Assistant Relationship Specialty Start Date End Date Gabriel Galvan MD [address] [facility], [place] [address] PCP - General Internal Medicine 08/28/22 Lyndsey Acevedo, LEAD GENERATION SPECIALIST.CYCLE CONSULTANT [address] [facility], [place] [address] [facility] Internal Medicine 08/15/24 Nora Crespo LEAD GENERATION SPECIALIST.PILOT CAPTAIN [address] [facility] [place] [address] [facility] Internal Medicine 11/29/24 Team Status: Inactive Member [...] January 18, 2025 End: January 18, 2025 Technician Assistant Relationship Specialty Start Date End Date Gabriel Galvan MD [address] [facility] [place] [address] PCP - General Internal Medicine 08/28/22 Lyndsey Acevedo, LEAD GENERATION SPECIALIST.CYCLE CONSULTANT [address] [facility] [place] [address] [facility] 08/15/24 01/24/25 Nora Crespo, LEAD GENERATION SPECIALIST.PILOT CAPTAIN [address] [facility] [place] [address] [facility] Internal Medicine 11/29/24 Lyndsey Acevedo, LEAD GENERATION SPECIALIST.CYCLE CONSULTANT [address] [facility] [place] [address] [facility] Internal Medicine 01/25/25 Technician Assistant Relationship Specialty Start Date End Date Gabriel Galvan MD [address] [facility] [place] [address] PCP - General Internal Medicine 08/28/22 Nora Crespo, LEAD GENERATION SPECIALIST.PILOT CAPTAIN [address] [facility] [place] [address] [facility] Internal Medicine 11/29/24 Lyndsey Acevedo, LEAD GENERATION SPECIALIST.CYCLE CONSULTANT [address] [facility] [place] [address] [facility] Internal Medicine 01/25/25 Technician Assistant Relationship Specialty Start Date End Date Gabriel Galvan MD [address] [facility] [place] [address] PCP - General Internal Medicine 08/28/22 Lyndsey Acevedo APRN.CYCLE CONSULTANT [address] [facility] [place] [address] [facility] Medicine 08/15/24 01/24/25 Nora Crespo APRN.PILOT CAPTAIN [address] [facility] [place] [address] [facility] Internal Medicine 11/29/24 Lyndsey Acevedo, LEAD GENERATION SPECIALIST.CYCLE CONSULTANT [address] [facility] [place] [address] [facility] Internal Medicine 01/25/25 Technician Assistant Relationship Specialty Start Date End Date Gabriel Galvan MD [address] [facility] [place] [address] PCP - General Internal Medicine 08/28/22 Nora Crespo APRN.PILOT CAPTAIN [address] [facility] [place] [address] [facility] 11/29/24 Lyndsey Acevedo, LEAD GENERATION SPECIALIST.CYCLE CONSULTANT [address] [facility] [place] [address] [facility] Internal Medicine 01/25/25 Technician Assistant Relationship Specialty Start Date End Date Gabriel Galvan MD [address] [facility] [place] [address] PCP - General Internal Medicine 08/28/22 Nora Crespo APRN.PILOT CAPTAIN [address] [facility] [place] [address] [facility] 11/29/24 Lyndsey Acevedo, LEAD GENERATION SPECIALIST.CYCLE CONSULTANT [address] [facility] [place] [address] [facility] Internal Medicine 01/25/25 Technician Assistant Relationship Specialty Start Date End Date Gabriel Galvan MD [address] [facility] [place] [address] PCP - General Internal Medicine 08/28/22 Nora Crespo APRN.PILOT CAPTAIN [address] [place] [address] [facility] Internal Medicine 11/29/24 Lyndsey Acevedo APRN.CYCLE CONSULTANT [address] [place] [address] [facility] Internal Medicine 01/25/25 Technician Assistant Relationship Specialty Start Date End Date Gabriel Galvan MD [address] [place] [address] PCP - General Internal Medicine 08/28/22 Nora Crespo APRN.PILOT CAPTAIN [address] [place] [address] [facility] Internal Medicine 11/29/24 Lyndsey Acevedo, LEAD GENERATION SPECIALIST.CYCLE CONSULTANT [address] [facility] [place] [address] [facility] 01/25/25 Technician Assistant Relationship Specialty Start Date End Date Gabriel Galvan MD [address] [place] [address] PCP - General Internal Medicine 08/28/22 Nora Crespo APRN.PILOT CAPTAIN [address] [place] [address] [facility] Internal Medicine 11/29/24 Lyndsey Acevedo, LEAD GENERATION SPECIALIST.CYCLE CONSULTANT [address] [place], [place] [address] [facility] Internal Medicine 01/25/25 Technician Assistant Relationship Specialty Start Date End Date Gabriel Galvan MD [address] [place] [address] PCP - General Internal Medicine 08/28/22 Nora Crespo, LEAD GENERATION SPECIALIST.PILOT CAPTAIN [address] [place], [place] [address] [facility] Internal Medicine 11/29/24 Lyndsey Acevedo, LEAD GENERATION SPECIALIST.CYCLE CONSULTANT [address] [place] [address] [facility] Internal Medicine 01/25/25 Team Status: Active Member Role/Relationship Status Dates Dr. Gabriel Galvan MD Primary care physician Active Team Status: Inactive Member Role/Relationship Status Dates Dr. Gabriel Galvan MD Primary care physician Active Start: May 26, 2025 End: May 29, 2025 Dr. Ross Lou , Emergency Departme nt Physician Active Start: May 26, 2025 End: May 29, 2025 Dr. Regan Russo MD Admitting physician Active Start: May 26, 2025 End: May 29, 2025 Dr. Regan Russo MD Nurse Practitioner Active Start: May 26, 2025 End: May 29, 2025 Dr. Rey Curtis MD Nurse Practitioner Active S tart: May 26, 2025 End: May 29, 2025 Dr. Jorgito Jackson MD Attending physician Active Start: May End: May 29, 2025 Team Status: Active Member Role/Relationship Status Dates Dr. Gabriel Galvan MD Primary care physician Active Start: May 26, 2025 Dr. Ross Lou , DO Emergency Departme nt Physician Active Start: May 26, 2025 Dr. Regan Russo MD Admitting physician Active Start: May 26, 2025 Dr. Regan Russo MD Attending physician Active Start: May 26, 2025 Dr. Regan Russo MD Nurse Practitioner Active Start: May 26, 2025 Dr. Rey Curtis MD Nurse Practitioner Active S tart: May 26, 2025 Team Status: Active Member Role/Relationship Status Dates Dr. Gabriel Galvan MD Primary care physician Active Start: May 26, 2025 Dr. Rey Curtis MD Attending physician Active Start: May 26, 2025 Team Status: Active Member Role/Relationship Status Dates Dr. Gabriel Galvan MD Primary care physician Active Start: May 27, 2025 Dr. Ross Lou , DO Emergency Departme nt Physician Active Start: May 27, 2025 Dr. Regan Russo MD Admitting physician Active Start: May 27, 2025 Dr. Regan Russo MD Nurse Practitioner Active Start: May 27, 2025 Dr. Rey Curtis MD Attending physician Active Start: May 27, 2025 Dr. Rey Curtis MD Nurse Practitioner Active S tart: May 27, 2025 Team Status: Active Member Role/Relationship Status Dates Dr. Gabriel Galvan MD Primary care physician Active Start: May 27, 2025 Dr. Ross Lou , DO Emergency Departme nt Physician Active Start: May 27, 2025 Dr. Regan Russo MD Admitting physician Active Start: May 27, 2025 Dr. Regan Russo MD Attending physician Active Start: May 27, 2025 Dr. Regan Russo MD Nurse Practitioner Active Start: May 27, 2025 Dr. Rey Curtis MD Nurse Practitioner Active S tart: May 27, 2025 Team Status: Active Member Role/Relationship Status Dates Dr. Gabriel Galvan MD Primary care physician Active Start: May 28, 2025 Dr. Ross Lou , DO Emergency Departme nt Physician Active Start: May 28, 2025 Dr. Regan Russo MD Admitting physician Active Start: May 28, 2025 Dr. Regan Russo MD Nurse Practitioner Active Start: May 28, 2025 Dr. Rey Curtis MD Attending physician Active Start: May 28, 2025 Dr. Rey Curtis MD Nurse Practitioner Active S tart: May 28, 2025 Dr. Jorgito Jackson MD Nurse Practitioner Active Start: May Team Status: Active Member Role/Relationship Status Dates Dr. Gabriel Galvan MD Primary care physician Active Start: May 28, 2025 Dr. Ross Lou , DO Emergency Departme nt Physician Active Start: May 28, 2025 Dr. Regan Russo MD Admitting physician Active Start: May 28, 2025 Dr. Regan Russo MD Nurse Practitioner Active Start: May 28, 2025 Dr. Rey Curtis MD Nurse Practitioner Active S tart: May 28, 2025 Dr. Jorgito Jackson MD Attending physician Active Start: May Dr. Jorgito Jackson MD Nurse Practitioner Active Start: May Team Status: Active Member Role/Relationship Status Dates Dr. Gabriel Galvan MD Primary care physician Active Start: May 29, 2025 Dr. Ross Lou , Emergency Departme nt Physician Active Start: May 29, 2025 Dr. Regan Russo MD Admitting physician Active Start: May 29, 2025 Dr. Regan Russo MD Nurse Practitioner Active Start: May 29, 2025 Dr. Rey Curtis MD Attending physician Active Start: May 29, 2025 Dr. Rey Curtis MD Nurse Practitioner Active S tart: May 29, 2025 Dr. Jorgito Jackson MD Nurse Practitioner Active Start: May Team Status: Active Member Role/Relationship Status Dates Dr. Gabriel Galvan MD Primary care physician Active Start: May 29, 2025 Dr. Ross Lou , Emergency Departme nt Physician Active Start: May 29, 2025 Dr. Regan Russo MD Admitting physician Active Start: May 29, 2025 Dr. Regan Russo MD Nurse Practitioner Active Start: May 29, 2025 Dr. Rey Curtis MD Nurse Practitioner Active S tart: May 29, 2025 Dr. Jorgito Jackson MD Attending physician Active Start: May Dr. Jorgito Jackson MD Nurse Practitioner Active Start: May Team Status: Active Member Role/Relationship Status Dates Dr. Gabriel Galvan MD Primary care physician Active Start: June 01, 2025 Dr. Rey Curtis MD Attending physician Active Start: June 01, 2025 FOR RECORDS PERTAINING TO PATIENTS WHO ARE [...] BE BASED ON THE PRIMARY CLINICAL RECORDS. [employer] [email or web address] provides no warranty or guarantee of the accuracy or completeness of information in this document.
--- NOTE | 2025-08-23 23:06 | EX.ED.DYSGE1 ---
HPI History of Present Illness Chief Complaint: Nausea/Vomiting Informant: patient Narrative Narrative: Patient is a 69-year-old female who was recently mated to the hospital with concern for TIA and was officially diagnosed with metabolic encephalopathy secondary to acute kidney injury. She was discharged home today/just a few hours ago. She has a history of COPD as well as congestive heart failure with ejection fraction of 25% by most recent echo and is supposed to be wearing 2 to 4 L nasal cannula oxygen 30/03. Patient reportedly called EMS because she felt nauseous and unwell and when EMS arrived the patient was not wearing her oxygen and satting 88% on room air. Therefore with the complaint of feeling unwell and now mild hypoxia she was brought back to the hospital for repeat evaluation [facility] Medical History Chronic pain Kidney disease Asthma Irregular heart beat Congestive heart failure (CHF) TIA (transient ischemic attack) Wears glasses Post-menopausal Arthritis History of renal disease High cholesterol DVT (deep venous thrombosis) Easy bruising Excessive bleeding Back pain Injury of back History of ulceration Difficulty chewing Gastric reflux Shortness of breath on exertion Hoarseness Chronic cough Leg cramps History of pain when walking History of edema History of echocardiogram History of stress test Cardiology follow-up encounter History of CHF (congestive heart failure) History of irregular heartbeat Chest pain Bullous emphysema COPD with asthma Esophagitis, unspecified without bleeding Unspecified combined 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 Other chronic pain Elevated troponin Sustained SVT Depression Osteoporosis Kidney stones Smoker Myocardial infarct History of non-ST elevation myocardial infarction (NSTEMI) (09/01/21) Essential hypertension Old anterior wall myocardial infarction Ischemic cardiomyopathy Opiate dependence Anxiety and depression TIA (transient ischemic attack) Obesity (BMI 30.0-34.9) EVELYN (obstructive sleep apnea) Personal history of transient ischemic attack (TIA), and cerebral infarction without residual deficits COPD (chronic obstructive pulmonary disease) Calculus of left kidney GERD (gastroesophageal reflux disease) Hyperlipidemia Atherosclerotic heart disease of [place] coronary artery without angina pectoris Tobacco abuse Home Medications ?Medication ?Instructions ?Recorded ?Last Taken ?Type inhalational spacing device #1 ea 02/17/23 Unknown Rx (Aerochamber MV spacer) lorazepam 1 mg tablet (Ativan) 1 mg PO TID PRN anxiety 07/16/23 09/27/24 History nitroglycerin 0.4 mg sublingual 0.4 mg buccal Q5M PRN chest pain 07/29/23 Unknown History tablet albuterol 90 mcg-budesonide 80 1 - 2 inh inhalation BID PRN 09/28/24 09/27/24 History mcg/actuation HFA aerosol inhaler shortness of breath (Airsupra) atorvastatin 40 mg tablet 40 mg PO QHS cholesterol 09/28/24 09/27/24 History cholecalciferol (vitamin D3) 125 125 mcg PO DAILY supplement 09/28/24 09/27/24 History mcg (5,000 unit) capsule hydrocodone-acetaminophen 5-325mg 1 tab PO BID pain 09/28/24 09/27/24 History 5mg-325mg polyethylene glycol 3350 17 17 g PO DAILY constipation 09/28/24 09/27/24 History gram/dose oral powder promethazine 25 mg tablet 25 mg PO Q6H PRN nausea and 09/28/24 Unknown History vomiting carvedilol 25 mg tablet 25 mg PO BID heart #120 tabs 10/04/24 Unknown Rx omeprazole 40 mg capsule,delayed 40 mg PO QDAY GERD 01/13/25 Unknown History release potassium chloride 20 mEq 20 meq PO QDAY supplement 01/13/25 Unknown History tablet,extended release spironolactone 25 mg tablet 25 mg PO QDAY blood pressure 01/13/25 Unknown History empagliflozin 10 mg tablet 10 mg PO DAILY diabetes 30 days 05/29/25 Unknown Rx (Jardiance) #30 tabs rivaroxaban 20 mg tablet (Xarelto) 20 mg PO DINNER blood thinner 30 05/29/25 Unknown Rx days #30 tabs sacubitril 24 mg-valsartan 26 mg 0.5 tab PO BID blood pressure 30 05/29/25 Unknown Rx tablet days #30 tabs acetaminophen 325 mg capsule 650 mg PO Q4H PRN fever or pain 08/21/25 Unknown History albuterol sulfate 90 mcg/actuation 2 inh inhalation Q4H PRN shortness 08/21/25 Unknown History aerosol inhaler (Ventolin HFA) of breath or wheezing duloxetine 60 mg capsule,delayed 60 mg PO DAILY mental health 08/21/25 Unknown History release furosemide 20 mg tablet 20 mg PO DAILY diuretic 08/21/25 Unknown History ketoconazole 2 % shampoo 1 applic topical .COMPLEX dry skin 08/21/25 Unknown History magnesium hydroxide 400 mg/5 mL 30 ml PO DAILY PRN constipation 08/21/25 Unknown History oral suspension (Milk of Magnesia) mirtazapine 15 mg tablet 15 mg PO QHS mental health 08/21/25 Unknown History oxycodone myristate 18 mg capsule 18 mg PO BID pain 08/21/25 Unknown History sprinkle extended release 12hr(DON'T CRUSH) (Xtampza ER) sennosides 8.6 mg-docusate sodium 1 tab-cap PO BID laxative 08/21/25 Unknown History 50 mg tablet (Senexon-S) sodium phosphates 19 gram-7 118 ml MN PRN PRN constipation 08/21/25 Unknown History gram/118 mL enema (Enema) sucralfate 100 mg/mL oral 1 g PO Q6H reflux 08/21/25 Unknown History suspension potassium, sodium phosphates 280 1 packet PO BID #100 ea 08/23/25 Unknown Rx mg-160 mg-250 mg oral powder packet Allergy/AdvReac Type Severity Reaction Status Date / Time Iodinated Contrast Media Allergy SOB Verified 08/23/25 22:32 (iodine contrast) Family History Mother Hypertension CAD (coronary artery disease) CVA (cerebral vascular accident) Myocardial infarction Grandmother Myocardial infarction Surgical History History of cholecystectomy Hx of esophagogastroduodenoscopy History of cardiac catheterization History of hysterectomy History of left heart catheterization (01/20/22) History of total hysterectomy Hx of appendectomy Social History (Updated 08/21/25 @ 18:31 by Keesha Garduno) household members: none housing: assisted living facility Smoking Status: Current some day smoker tobacco type: cigarettes alcohol intake: never substance use type: does not use ROS ROS ED Constitutional Constitutional ED: Reports other Details: Positive fatigue ; Denies chills or fever(s) Eyes Eyes: Denies change in vision ENT ENT ED: Denies rhinorrhea or sore throat Cardiovascular Cardiovascular: Reports palpitations; Denies chest pain or racing heartbeat Respiratory/Chest Respiratory/Chest: Denies cough or dyspnea Gastrointestinal Gastrointestinal: Reports nausea; Denies abdominal pain, constipation, diarrhea or vomiting Genitourinary Genitourinary ED: Denies dysuria Musculoskeletal Musculoskeletal: Reports myalgias Integumentary Denies rash Neurologic Neurologic: Reports weakness; Denies headache(s) Hematologic/Lymphatic Hematologic/Lymphatic: Denies easy bleeding or easy bruising EXAM Physical Exam Const Vital Signs: 08/23/25 22:28 08/23/25 22:35 08/24/25 01:48 Temperature 97.7 F L 98.2 F Temperature Source Temporal Pulse Rate 75 96 Respiratory Rate 18 17 Blood Pressure 146/73 H 141/67 H Blood Pressure Mean 97 91 Pulse Ox 89 97 96 Oxygen Delivery Method Room Air Nasal Cannula Oxygen Flow Rate (L/min) 2 Positive well nourished, well developed and obese General Appearance ED: well developed and pallor Nutritional Appearance: obese HEENT Reports dry mucous membranes HEENT Narrative: Normocephalic atraumatic No tongue or lip swelling no oral lesions no airway edema or compromise No secondary findings in the posterior pharynx to suggest infectious process No tongue or cheek biting noted to suggest seizure activity Mucous membranes are mildly dry and tacky Mouth ED: Yes dry mucous membranes Mouth: dry mucous membranes Eyes PERRL and EOMs intact bilaterally General Eye ED: Negative for scleral icterus Neck supple and no JVD Neck Narrative: No nuchal rigidity or meningeal signs Resp normal respiratory effort Resp Narrative: Breath sounds are diminished throughout with faint expiratory wheeze diffusely consistent with history of COPD and rhonchi in the bilateral bases however no signs of respiratory distress Cardio regular rate and regular rhythm Rate: other Other Details: Heart is regular rate and rhythm with frequent ectopic beats noted Radial and carotid pulses are equal and symmetric GI non-tender, non-distended and no masses GI Narrative: Abdomen is soft nontender nondistended with hyperactive bowel sounds No voluntary guarding or rigidity or pulsatile mass No fluid wave No peritoneal signs Auscultation: hyperactive bowel sounds Palpation: soft Extremity Extremity Narrative: +1 pitting edema to the bilateral lower extremities that is equal and symmetric Negative Homans' sign bilaterally Neuro oriented x3 and CN's II-XII intact bilaterally Neuro Narrative: GCS of 15 Patient is awake alert and oriented to person place and time Cranial nerves II through XII are grossly intact without focal neurologic deficit NIH stroke scale score of 0 Sensorium / Orientation: alert Psych mental status grossly normal Skin No skin turgor normal Skin Narrative: Skin turgor is increased consistent mild dehydration Skin is pale in color but capillary refill remains less than 3 seconds No overlying soft tissue skin changes to suggest infection General Skin Exam: pallor; Negative for jaundice MDM MDM MDM Narrative Medical decision making narrative: Patient arrived to the ER with her pulse ox between 95 and 98% on her normal 2 L nasal cannula and otherwise stable vitals. She was discharged from the hospital approximately just a few hours ago secondary to hypernatremia and JOVANY and encephalopathy. The previous hospitalization records were reviewed as well as the laboratory studies from earlier today. In order to ensure the patient does not have return of JOVANY or hypernatremia or pancreatitis or thyroid malfunction hepatic encephalopathy hypercarbia or acute blood loss anemia basic laboratory studies were obtained. Labs revealed no clinically significant findings and when compared to the values from earlier today are essentially the exact same. The CO2 is just slightly elevated at 53 which is near the value from her previous blood gas at 48. I did elect to hold off IV hydration as she does have a history of heart failure and recently was hypernatremic. As her sodium is at the upper limit of normal and her creatinine is normal I do not feel the need for further IV fluid. In order to assess for any potential possibility of her generalized weakness a urine sample was obtained. This did show bacteria but is grossly contaminated and therefore I do not feel this is true infection and will be sent for culture to confirm this but at this time I do not feel warrants antibiotic. She does still test positive for oxycodone which she is prescribed for chronic pain and therefore as it is present in her system I doubt that her generalized fatigue is due to withdrawal symptoms. Also she has been on Xarelto chronically and therefore I feel no need for a CTA of the chest as symptoms and exam do not correlate with potential pulmonary embolus. I discussed with patient as she just left the hospital and her labs reveal no return of organ dysfunction that grounds for admission would be for placement in a correction as she is unable to care for herself. The patient states that this is not acceptable and she will not go to a correction and she would rather return home. The patient does have supplemental oxygen at home to wear and she was advised she needs to wear this 24/7 to keep her oxygen saturations above 90%. However at this time as her vitals are stable labs normal and mental status at baseline and she is refusing placement in a correction there is no need for evaluation in the hospital and she is otherwise safe for discharge History & Record Review Discussion w/independent historian: Patient Additional record(s) reviewed:: Prior inpatient record and Prior labs Lab Data Attestation: I reviewed the patient's lab results. Labs: Laboratory Results - last 24 hr 08/23/25 08/24/25 08/24/25 23:12 00:11 00:19 WBC 8.0 RBC 3.91 L Hgb 12.2 Hct 38.7 MCV 99.0 MCH 31.2 MCHC 31.5 L RDW Std Deviation 46.4 H RDW Coeff of Sariah 13.1 Plt Count 283 MPV 10.5 Immature Gran % (Auto) 0.600 Neut % (Auto) 75.3 H Lymph % (Auto) 13.8 L Becker % (Auto) 8.1 Eos % (Auto) 1.6 Baso % (Auto) 0.6 Absolute Neuts (auto) 6.0 Absolute Lymphs (auto) 1.11 Nucleated RBC % 0 Sodium 142 Potassium 4.5 Chloride 106 Carbon Dioxide 28.0 Anion Gap 8 BUN 13 Creatinine 0.66 L Estim Creat Clear Calc 67.21 Est GFR (MDRD) Non-Af 96 BUN/Creatinine Ratio 19.2 Glucose 117 H Calcium 10.0 Magnesium 1.7 Total Bilirubin 0.36 Direct Bilirubin 0.15 AST 15 ALT 9 Alkaline Phosphatase 78 Ammonia 28.7 Total Protein 6.3 Albumin 3.3 L Globulin 3.0 Lipase 13 Procalcitonin 0.05 TSH 0.310 Urine Color Yellow Urine Clarity Sl. Cloudy Urine pH 5.0 Ur Specific [place] 1.010 Urine Protein 100 H Urine Glucose (UA) 1000 H Urine Ketones Negative Urine Occult Blood 250 H Urine Nitrite Positive H Urine Bilirubin Negative Urine Urobilinogen Normal Ur Leukocyte Esterase 25 H Urine RBC 10-25 SEEN Urine WBC 25-50 SEEN Ur Squamous Epith Cells 25-50 SEEN Urine Bacteria 3+ Urine Mucus 0 SEEN Urine Opiates Screen PRESUMPTIVE POSITIVE U Buprenorphine Qual NEGATIVE Ur Oxycodone Screen PRESUMPTIVE POSITIVE Urine Methadone Screen NEGATIVE Urine Fentanyl Screen NEGATIVE Ur Barbiturates Screen NEGATIVE Ur Phencyclidine Scrn NEGATIVE Ur Amphetamines Screen NEGATIVE U Benzodiazepines Scrn PRESUMPTIVE POSITIVE Urine Cocaine Screen NEGATIVE U Cannabinoids Screen NEGATIVE Ethyl Alcohol < 10.1 ABG Data ABG results: ABG 08/23/25 23:21 Specimen Type JACKI Sample Site Not entered O2 % 2.0 VBG pH 7.36 VBG pO2 38 VBG HCO3 30 H VBG Total CO2 32 VBG O2 Sat (Calc) 68 VBG Base Excess 5 H POC Mix VBG pCO2 Pt Tmp 53.8 H O2 Delivery Device Cannula Discharge Plan Triage Chief Complaint: Nausea/Vomiting Other Complaint: Confusion ED Provider: Ross Lou Dx/Rx/DC Orders Clinical Impression: Nausea, COPD (chronic obstructive pulmonary disease), Generalized weakness, Tobacco abuse, Essential hypertension, Hyperlipidemia, Current use of long term care phlebotomist anticoagulation Instructions: COPD: Wheezing and Chest Tightness, ED Weakness Uncertain Cause Prescriptions: No Action (DME) Aerochamber MV Spacer See Rx Instructions .ROUTE .MEDSUPPLY Qty: 1 0RF Rx Instructions: As directed lorazepam [Ativan] 1 mg tablet 1 mg PO TID PRN (Reason: anxiety) carvedilol 25 mg tablet 25 mg PO BID Qty: 120 3RF Rx Instructions: must administer with a meal/food omeprazole 40 mg capsule,delayed release(DR/EC) 40 mg PO QDAY spironolactone 25 mg tablet 25 mg PO QDAY potassium chloride 20 mEq tablet extended release 20 meq PO QDAY nitroglycerin 0.4 mg tablet, sublingual 0.4 mg buccal Q5M PRN (Reason: chest pain) promethazine 25 mg tablet 25 mg PO Q6H PRN (Reason: nausea and vomiting) hydrocodone-acetaminophen 5-325 mg tablet 1 tab PO BID Airsupra 90-80 mcg/actuation HFA aerosol inhaler 1 - 2 inh INHALATION BID PRN (Reason: shortness of breath) Patient Comments: [NO ORIGINAL SIG] atorvastatin 40 mg tablet 40 mg PO QHS polyethylene glycol 3350 17 gram/dose powder 17 g PO DAILY cholecalciferol (vitamin D3) 125 mcg (5,000 unit) capsule 125 mcg PO DAILY Xarelto 20 mg Tablet 20 mg PO DINNER 30 Days Qty: 30 0RF Jardiance 10 mg Tablet 10 mg PO DAILY 30 Days Qty: 30 0RF sacubitril-valsartan 24-26 mg Tablet 0.5 tab PO BID 30 Days Qty: 30 0RF mirtazapine 15 mg tablet 15 mg PO QHS Patient Comments: [NO ORIGINAL SIG] duloxetine 60 mg capsule,delayed release(DR/EC) 60 mg PO DAILY sennosides-docusate sodium [Senexon-S] 8.6-50 mg tablet 1 tab-cap PO BID sucralfate 100 mg/mL suspension 1 g PO Q6H Patient Comments: [NO ORIGINAL SIG] Xtampza ER 18 mg cap,sprinkl,ER12hr(DONT CRUSH) 18 mg PO BID Rx Instructions: must administer with a meal/food furosemide 20 mg tablet 20 mg PO DAILY Patient Comments: [NO ORIGINAL SIG] acetaminophen 325 mg capsule 650 mg PO Q4H PRN (Reason: fever or pain) albuterol sulfate [Ventolin HFA] 90 mcg/actuation HFA aerosol inhaler 2 inh inhalation Q4H PRN (Reason: shortness of breath or wheezing) Enema 19-7 gram/118 mL enema 118 ml MN PRN PRN (Reason: constipation) ketoconazole 2 % shampoo 1 applic topical .COMPLEX Rx Instructions: 1 applic topically 3XW; magnesium hydroxide [Milk of Magnesia] 400 mg/5 mL suspension 30 ml PO DAILY PRN (Reason: constipation) potassium, sodium phosphates 280-160-250 mg Powder In Packet 1 packet PO BID Qty: 100 0RF Primary Care Provider: Sandy Barbosa Referrals: Sandy Barbosa MD [Primary Care Provider, Internal Medicine] Activity Restrictions/Additional Instructions: Your workup today revealed that your labs are very similar to when you left the hospital. You need to wear your oxygen 24/7 to keep your pulse ox above 90%. You need to continue all of your home medication as directed by your doctor. Keep yourself well-hydrated and return to the ER should you have any further concerns Print Language: Maori Disposition Disposition: Home, Self Care
[2025-08-23 23:22] LABS: Hematocrit 38.7 % (37-47); Hemoglobin 12.2 g/dL (12.0-15.0); Immature Granulocytes Count 0.050 X10^3/uL (0.0-0.0); Mean Corp Hgb Conc 31.5 g/dL (32-36); Mean Corpuscular Volume 99.0 fL (81-99); Mean Platelet Vol. 10.5 fl (6.2-12.0); NRBC Flagged by Analyzer 0 % (0-5); Platelet Count 283 K/mm3 (150-450); RBC Distribution Width CV 13.1 % (11.6-14.6); RBC Distribution Width SD 46.4 fl (35.1-43.9); Red Blood Count 3.91 M/mm3 (4.2-5.4); White Blood Count 8.0 K/mm3 (4.4-11.0)
[2025-08-23 23:24] LABS: FI02 2.0; SITE Not entered; VBG BASE EXCESS 5 mmol/L (-1.0-3.5); VBG PO2 38 mmHg (25-40); VBG SO2 68 % (50-70); VBG TCO2 32 mmol/L (23-33)
[2025-08-23 23:53] LABS: Ammonia 28.7 umol/L (11-51)
[2025-08-23 23:59] LABS: AST(SGOT) 15 U/L (<=31); Alanine Aminotransfer ALT/SGPT 9 U/L (<=34); Albumin, Serum 3.3 g/dL (3.4-4.8); Alkaline Phosphatase 78 U/L (35-104); Anion Gap 8 (5-15); BUN 13 mg/dL (4-19); BUN/Creat Ratio 19.2 RATIO (10-20); Bilirubin, Direct 0.15 mg/dL (0.00-0.30); Calcium,Total 10.0 mg/dL (7.6-11.0); Carbon Dioxide 28.0 mmol/L (21.0-32.0); Chloride 106 mmol/L (98-108); Estimated Creatinine Clearance 67.21 ml/min (50-250); Globulin 3.0 g/dL (2.2-4.2); Glucose 117 mg/dL (70-99); Lipase 13 U/L (13-75); Magnesium 1.7 mg/dL (1.5-2.2); Potassium 4.5 mmol/L (3.3-5.1); Procalcitonin 0.05 ng/mL (<=0.10)
[2025-08-24 00:23] LABS: Mucous, Urine 0 SEEN /hpf (<or=2+)
[2025-08-24 00:25] LABS: Color, Urine Yellow (Yellow); Glucose, Dipstick 1000 mg/dl (Normal); Ketone-Dipstick Negative (Negative); Leukocyte Esterase-Dipstick 25 /ul (Negative); Nitrite-Dipstick Positive (Negative); Occult Blood-Urine 250 /ul (Negative); Protein-Dipstick 100 mg/dl (Negative); Specific Gravity, Urine 1.010 (1.002-1.030); Urine Bilirubin Dipstick Negative (Negative)
[2025-08-24 00:37] LABS: Red Blood Cells-Urine 10-25 SEEN /hpf (0-5)
[2025-08-24 00:38] LABS: Squamous Epithelial Cells - UA 25-50 SEEN /hpf (5-10)
[2025-08-24 00:50] LABS: Alcohol, Blood (Medical)-Serum < 10.1 mg/dL (<=10.0)
[2025-08-24 01:30] LABS: Barbiturate Urine NEGATIVE (< 200 ng/mL); Benzodiazepine Urine PRESUMPTIVE POSITIVE (< 200 ng/mL); PCP Urine NEGATIVE (< 25 ng/mL); THC Urine NEGATIVE (< 50 ng/mL)
[2025-08-24 01:48] VITALS: BP 141/67; PULSE 96; RESP 17; TEMP 36.8; O2SAT 96
[2025-08-24 04:27] VITALS: BP 124/60; PULSE 78; RESP 18
== END 2025-08-24 05:37 | disposition home or self-care (01) ==
PROVIDERS: Emergency Provider Emergency Medicine; PCP Internal Medicine; Visit Provider Emergency Medicine
DX: R11.0 Nausea (principal); I11.0 Hypertensive heart disease with heart failure; I50.42 Chronic combined systolic (congestive) and diastolic (congestive) heart failure; J44.9 Chronic obstructive pulmonary disease, unspecified; R06.2 Wheezing; R53.1 Weakness; E78.5 Hyperlipidemia, unspecified; E66.9 Obesity, unspecified; F17.210 Nicotine dependence, cigarettes, uncomplicated; Z68.28 Body mass index [BMI] 28.0-28.9, adult; Z99.81 Dependence on supplemental oxygen; Z79.01 Long term (current) use of anticoagulants; Z79.899 Other long term (current) drug therapy
CPT/HCPCS: 80048; 80076; 80307; 81001; 82077; 82140; 82803; 83690; 83735; 84145; 84443; 85025; 87086; 87631; A4216

== ENCOUNTER 2025-08-24 09:29 | Inpatient (IN) | payer MEDICARE, MEDICAID, SELFPAY ==
[2025-08-24] VITALS (27 sets, daily range): BP systolic 131–175; BP diastolic 64–108; PULSE 79–114; RESP 12–35; TEMP 36.2–36.9; O2SAT 94–98; BMI 29.2; BMI 29.0
--- NOTE | 2025-08-24 09:52 | EKG12_ITS ---
Test Reason : SOB Blood Pressure : */* mmHG Vent. Rate : 109 BPM Atrial Rate : 110 BPM P-R Int : 130 ms QRS Dur : 98 ms QT Int : 374 ms P-R-T Axes : 61 36 84 degrees QTcB Int : 503 ms Sinus tachycardia with PVC's and PAC's with aberrant conduction Cannot rule out Anteroseptal infarct , age undetermined Nonspecific ST and T wave abnormality ST & T wave abnormality, consider lateral ischemia Prolonged QT Abnormal ECG Confirmed by Brown Ann ([id number]), editorial clerk MICAH SALMERON ([id number]) on 08/25/2025 10:34:24 AM Referred By: Confirmed By: Brown Ann
[2025-08-24 10:06] LABS: Hematocrit 41.3 % (37-47); Hemoglobin 12.9 g/dL (12.0-15.0); Immature Granulocytes Count 0.080 X10^3/uL (0.0-0.0); Mean Corp Hgb Conc 31.2 g/dL (32-36); Mean Corpuscular Volume 99.3 fL (81-99); Mean Platelet Vol. 10.4 fl (6.2-12.0); NRBC Flagged by Analyzer 0 % (0-5); Platelet Count 351 K/mm3 (150-450); RBC Distribution Width CV 13.1 % (11.6-14.6); RBC Distribution Width SD 47.1 fl (35.1-43.9); Red Blood Count 4.16 M/mm3 (4.2-5.4); White Blood Count 10.8 K/mm3 (4.4-11.0)
--- NOTE | 2025-08-24 10:13 | EX.ED.DYSGE1 ---
HPI History of Present Illness Chief Complaint: Shortness of Breath Narrative Narrative: Chief complaint and HPI: 69-year-old female with past medical history of GERD, COPD, HLD, HTN presents for evaluation of shortness of breath. History taken by patient as well as medical record. Patient was recently admitted to our hospital for metabolic encephalopathy, frequent falls, and JOVANY. I admitted her at that time. She was discharged from the hospital on 08/23/2025. She has history of CHF with an EF of 25% and is supposed to be wearing 2 to 4 L NS at home. Patient was seen in our emergency department yesterday after being discharged for shortness of breath. She was ultimately discharged home early this morning after relatively unremarkable workup. Patient states she has continued to have shortness of breath. She admits that she is not wearing her oxygen at home as supposed to. She denies any fever, chills, chest pain, nausea, vomiting. Triage note states the patient complained of abdominal pain however she denied this to me. Prior to being discharged from our ER earlier this morning, she was offered placement into a long-term but she declined. Review of systems: See HPI Medications: As listed on the chart Allergies: As listed on the chart PFSH: Per chart Vital signs: As listed on the chart. Reviewed. Physical exam: Gen: A&O x3 but agitated Head: Normocephalic, atraumatic Eyes: No sclera icterus, conjunctiva clear ENT: Moist mucous membranes Neck: Trachea midline, No JVD CV: Tachycardic, regular rhythm, no murmurs, no peripheral edema Resp: Lungs CTA BLwith few expiratory wheezes, tachypneic when worked up however respiratory rate improves when sitting still, on her baseline 2 L nasal cannula GI: Abd soft, non-distended, non-tender, no r/r/g Musc: Full ROM, no deformity Skin: Warm, dry Neuro: Alert, oriented, grossly intact, sensation intact [facility] Medical History Chronic pain Kidney disease Asthma Irregular heart beat Congestive heart failure (CHF) TIA (transient ischemic attack) Wears glasses Post-menopausal Arthritis History of renal disease High cholesterol DVT (deep venous thrombosis) Easy bruising Excessive bleeding Back pain Injury of back History of ulceration Difficulty chewing Gastric reflux Shortness of breath on exertion Hoarseness Chronic cough Leg cramps History of pain when walking History of edema History of echocardiogram History of stress test Cardiology follow-up encounter History of CHF (congestive heart failure) History of irregular heartbeat Chest pain Bullous emphysema COPD with asthma Esophagitis, unspecified without bleeding Unspecified combined 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 Other chronic pain Elevated troponin Sustained SVT Depression Osteoporosis Kidney stones Smoker Myocardial infarct History of non-ST elevation myocardial infarction (NSTEMI) (09/01/21) Essential hypertension Old anterior wall myocardial infarction Ischemic cardiomyopathy Opiate dependence Anxiety and depression TIA (transient ischemic attack) Obesity (BMI 30.0-34.9) EVELYN (obstructive sleep apnea) Personal history of transient ischemic attack (TIA), and cerebral infarction without residual deficits COPD (chronic obstructive pulmonary disease) Calculus of left kidney GERD (gastroesophageal reflux disease) Hyperlipidemia Atherosclerotic heart disease of [place] coronary artery without angina pectoris Tobacco abuse Home Medications ?Medication ?Instructions ?Recorded ?Last Taken ?Type inhalational spacing device #1 ea 02/17/23 Unknown Rx (Aerochamber MV spacer) lorazepam 1 mg tablet (Ativan) 1 mg PO TID PRN anxiety 07/16/23 09/27/24 History nitroglycerin 0.4 mg sublingual 0.4 mg buccal Q5M PRN chest pain 07/29/23 Unknown History tablet albuterol 90 mcg-budesonide 80 1 - 2 inh inhalation BID PRN 09/28/24 09/27/24 History mcg/actuation HFA aerosol inhaler shortness of breath (Airsupra) atorvastatin 40 mg tablet 40 mg PO QHS cholesterol 09/28/24 09/27/24 History cholecalciferol (vitamin D3) 125 125 mcg PO DAILY supplement 09/28/24 09/27/24 History mcg (5,000 unit) capsule hydrocodone-acetaminophen 5-325mg 1 tab PO BID pain 09/28/24 09/27/24 History 5mg-325mg polyethylene glycol 3350 17 17 g PO DAILY constipation 09/28/24 09/27/24 History gram/dose oral powder promethazine 25 mg tablet 25 mg PO Q6H PRN nausea and 09/28/24 Unknown History vomiting carvedilol 25 mg tablet 25 mg PO BID heart #120 tabs 10/04/24 Unknown Rx omeprazole 40 mg capsule,delayed 40 mg PO QDAY GERD 01/13/25 Unknown History release potassium chloride 20 mEq 20 meq PO QDAY supplement 01/13/25 Unknown History tablet,extended release spironolactone 25 mg tablet 25 mg PO QDAY blood pressure 01/13/25 Unknown History empagliflozin 10 mg tablet 10 mg PO DAILY diabetes 30 days 05/29/25 Unknown Rx (Jardiance) #30 tabs rivaroxaban 20 mg tablet (Xarelto) 20 mg PO DINNER blood thinner 30 05/29/25 Unknown Rx days #30 tabs sacubitril 24 mg-valsartan 26 mg 0.5 tab PO BID blood pressure 30 05/29/25 Unknown Rx tablet days #30 tabs acetaminophen 325 mg capsule 650 mg PO Q4H PRN fever or pain 08/21/25 Unknown History albuterol sulfate 90 mcg/actuation 2 inh inhalation Q4H PRN shortness 08/21/25 Unknown History aerosol inhaler (Ventolin HFA) of breath or wheezing duloxetine 60 mg capsule,delayed 60 mg PO DAILY mental health 08/21/25 Unknown History release furosemide 20 mg tablet 20 mg PO DAILY diuretic 08/21/25 Unknown History ketoconazole 2 % shampoo 1 applic topical .COMPLEX dry skin 08/21/25 Unknown History magnesium hydroxide 400 mg/5 mL 30 ml PO DAILY PRN constipation 08/21/25 Unknown History oral suspension (Milk of Magnesia) mirtazapine 15 mg tablet 15 mg PO QHS mental health 08/21/25 Unknown History oxycodone myristate 18 mg capsule 18 mg PO BID pain 08/21/25 Unknown History sprinkle extended release 12hr(DON'T CRUSH) (Xtampza ER) sennosides 8.6 mg-docusate sodium 1 tab-cap PO BID laxative 08/21/25 Unknown History 50 mg tablet (Senexon-S) sodium phosphates 19 gram-7 118 ml NV PRN PRN constipation 08/21/25 Unknown History gram/118 mL enema (Enema) sucralfate 100 mg/mL oral 1 g PO Q6H reflux 08/21/25 Unknown History suspension Allergy/AdvReac Type Severity Reaction Status Date / Time Iodinated Contrast Media Allergy SOB Verified 08/24/25 09:37 (iodine contrast) Family History Mother Hypertension CAD (coronary artery disease) CVA (cerebral vascular accident) Myocardial infarction Grandmother Myocardial infarction Surgical History History of cholecystectomy Hx of esophagogastroduodenoscopy History of cardiac catheterization History of hysterectomy History of left heart catheterization (01/20/22) History of total hysterectomy Hx of appendectomy Social History (Updated 08/21/25 @ 18:31 by Keesha Garduno) household members: none housing: assisted living facility Smoking Status: Current some day smoker tobacco type: cigarettes alcohol intake: never substance use type: does not use EXAM Physical Exam Const Vital Signs: 08/24/25 09:30 08/24/25 09:35 08/24/25 09:35 Temperature 97.1 F L 97.1 F L Temperature Source Temporal Temporal Pulse Rate 106 H 103 H 105 H Respiratory Rate 33 H 29 H 31 H Respiratory Effort Respiratory Depth Respiratory Pattern Blood Pressure 175/100 H 175/100 H 175/100 H Blood Pressure Mean 125 125 125 Pulse Ox 95 96 96 Oxygen Delivery Method Nasal Cannula Nasal Cannula Nasal Cannula Oxygen Flow Rate (L/min) 2 2 2 08/24/25 09:38 08/24/25 09:52 08/24/25 10:39 Temperature Temperature Source Pulse Rate 100 Respiratory Rate 19 H Respiratory Effort Short of Breath Labored Respiratory Depth Normal Respiratory Pattern Tachypnea Normal Blood Pressure Blood Pressure Mean Pulse Ox Oxygen Delivery Method Nasal Cannula Room Air Oxygen Flow Rate (L/min) 2 08/24/25 11:39 08/24/25 12:14 08/24/25 13:00 Temperature 98.5 F 97.7 F L 98.1 F Temperature Source Oral Oral Oral Pulse Rate 97 79 95 Respiratory Rate 17 16 28 H Respiratory Effort Respiratory Depth Respiratory Pattern Blood Pressure 145/78 H 142/87 H 160/104 H Blood Pressure Mean 100 105 122 Pulse Ox 96 97 98 Oxygen Delivery Method Room Air Room Air Nasal Cannula Oxygen Flow Rate (L/min) 4 MDM MDM MDM Narrative Medical decision making narrative: 69-year-old female with past medical history of GERD, COPD, HLD, HTN presents for evaluation of shortness of breath. History taken by patient as well as medical record. Patient was recently admitted to our hospital for metabolic encephalopathy, frequent falls, and JOVANY. I admitted her at that time. She was discharged from the hospital on 08/23/2025. She has history of CHF with an EF of 25% and is supposed to be wearing 2 to 4 L NS at home. Patient was seen in our emergency department yesterday after being discharged for shortness of breath. She was ultimately discharged home early this morning after relatively unremarkable workup. Patient states she has continued to have shortness of breath. She admits that she is not wearing her oxygen at home as supposed to. On presentation, patient is agitated, tachycardic, tachypneic. However once she becomes calm her respiratory status/rate improves. She is on her baseline 2 L nasal cannula. Discharge summary note was reviewed as well as emergency medicine note from yesterday. Patient had a laboratory workup performed yesterday. I did review these. Relatively unremarkable. UA showed UTI however this was not a clean sample. Decided not to treat and instead send for culture. She had a urine drug screen that was positive for oxycodone which she takes at home. Differential diagnosis includes but is not limited to COPD exacerbation, viral illness, pneumonia, CHF exacerbation, ACS. Solu-Medrol and DuoNebs ordered. Will not be giving fluids given she has an EF of 25%. Laboratory workup ordered including chest x-ray. It was reported by the applicant that the patient's son who is the POA informed her that if the patient were discharged again he will do something violent. Therefore we informed our security team. VBG with mild hypercapnia 51.7. This appears to be her baseline on chart review. CBC without leukocytosis or anemia. Platelets unremarkable. Patient's D-dimer elevated at 1.42. On chart review D-dimer is always elevated however cannot rule out PE. CTA chest ordered. Patient has contrast allergy therefore will give 500 cc NS bolus. Patient received central Medrol. Will give Benadryl. BMP unremarkable. Troponin 27. Troponin previously higher. Patient not endorsing any chest pain. Will get repeat. BNP elevated at 15,523. This is increased since May. Not overtly fluid overloaded on physical exam. COVID, flu, RSV negative. CT of the chest shows no PE. Patient has borderline cardiomegaly with vascular findings suggestive of right heart dysfunction, likely interstitial edema, and trace left pleural effusion. Patient has a history of CHF. Mild mediastinal lymphadenopathy, nonspecific potentially reactive. Recommend outpatient thyroid ultrasound due to a right lobe thyroid nodule versus artifact. Repeat troponin 30. Patient not having chest pain. At this point in time, I feel that patient likely has a COPD exacerbation. On reevaluation she still intermittently tachypneic. She is now requiring 4 to 5 L nasal cannula still wheezing. Another DuoNeb ordered. Patient will warrant admission. I spoke with the hospitalist who accepted admission. Patient was updated of all results and for and understand the plan. EKG: Interpreted by me/EM physician: EKG has a lot of artifact given her movement. Appears to be sinus tachycardia with nonspecific ST changes. Prolonged QTc of 503. Heart rate 109. Impression: 1. COPD exacerbation 2. Acute on chronic hypoxic 3. Elevated troponin 4. Elevated BNP without significant CHF exacerbation Lab Data Labs: Laboratory Results - last 24 hr 08/24/25 08/24/25 08/24/25 09:40 11:30 12:10 WBC 10.8 RBC 4.16 L Hgb 12.9 Hct 41.3 MCV 99.3 H MCH 31.0 MCHC 31.2 L RDW Std Deviation 47.1 H RDW Coeff of Sariah 13.1 Plt Count 351 MPV 10.4 Immature Gran % (Auto) 0.700 Neut % (Auto) 81.7 H Lymph % (Auto) 8.8 L Burnett % (Auto) 7.8 Eos % (Auto) 0.4 Baso % (Auto) 0.6 Absolute Neuts (auto) 8.8 H Absolute Lymphs (auto) 0.95 Nucleated RBC % 0 D-Dimer Quant (PE/DVT) 1.42 H* Sodium 143 Potassium 4.4 Chloride 104 Carbon Dioxide 28.9 Anion Gap 10 BUN 13 Creatinine 0.68 L Estim Creat Clear Calc 67.68 Est GFR (MDRD) Non-Af 95 BUN/Creatinine Ratio 18.4 Glucose 133 H Calcium 10.6 Troponin T High Sens 27 H D Troponin T Hi Sens 2 Hr 30 [place] [address] H Urine Color Yellow Urine Clarity Sl. Cloudy Urine pH 6.0 Ur Specific [place] 1.010 Urine Protein 30 H Urine Glucose (UA) 1000 H Urine Ketones Negative Urine Occult Blood 25 H Urine Nitrite Positive H Urine Bilirubin Negative Urine Urobilinogen Normal Ur Leukocyte Esterase 25 H Urine RBC 0 SEEN Urine WBC 5-10 SEEN Ur Squamous Epith Cells 10-25 SEEN Urine Bacteria 3+ Urine Mucus 0 SEEN ABG Data ABG results: ABG 08/24/25 10:20 Specimen Type JACKI Sample Site Not entered VBG pH 7.37 VBG pO2 48 H VBG HCO3 30 H VBG Total CO2 31 VBG O2 Sat (Calc) 82 H VBG Base Excess 5 H POC Mix VBG pCO2 Pt Tmp 51.7 H O2 Delivery Device Not entered Radiography Diagnostic Testing: Clinical Impression(s) from Imaging Studies Chest CTA 08/24/25 12:00 IMPRESSION: 1. No central or definite pulmonary embolism identified allowing for notable limitations. 2. Borderline mild cardiomegaly with vascular findings suggestive of RIGHT heart dysfunction, likely interstitial edema, and trace LEFT pleural effusion. 3. Demineralization with slight increase in the degree of vertebral body height loss at T7 since 11/30/2023, age indeterminate. Correlate with history and point tenderness. 4. Mild mediastinal lymphadenopathy, nonspecific and potentially reactive in the absence of known malignancy. Correlate with medical history and follow-up as indicated. 5. Recommend outpatient thyroid ultrasound.. 6. Additional description as above. Incidental Finding Alert: Recommend follow-up as above. Management of incidental findings should follow the [employer] (ACR) Incidental Findings Committee recommendations. Reading Location: [facility] Discharge Plan Triage Chief Complaint: Shortness of Breath Other Complaint: Abd Pain ED Provider: Orlando Mi Dx/Rx/DC Orders Prescriptions: No Action (DME) Aerochamber MV Spacer See Rx Instructions .ROUTE .MEDSUPPLY Qty: 1 0RF Rx Instructions: As directed lorazepam [Ativan] 1 mg tablet 1 mg PO TID PRN (Reason: anxiety) carvedilol 25 mg tablet 25 mg PO BID Qty: 120 3RF Rx Instructions: must administer with a meal/food omeprazole 40 mg capsule,delayed release(DR/EC) 40 mg PO QDAY spironolactone 25 mg tablet 25 mg PO QDAY potassium chloride 20 mEq tablet extended release 20 meq PO QDAY nitroglycerin 0.4 mg tablet, sublingual 0.4 mg buccal Q5M PRN (Reason: chest pain) promethazine 25 mg tablet 25 mg PO Q6H PRN (Reason: nausea and vomiting) hydrocodone-acetaminophen 5-325 mg tablet 1 tab PO BID Airsupra 90-80 mcg/actuation HFA aerosol inhaler 1 - 2 inh INHALATION BID PRN (Reason: shortness of breath) Patient Comments: [NO ORIGINAL SIG] atorvastatin 40 mg tablet 40 mg PO QHS polyethylene glycol 3350 17 gram/dose powder 17 g PO DAILY cholecalciferol (vitamin D3) 125 mcg (5,000 unit) capsule 125 mcg PO DAILY Xarelto 20 mg Tablet 20 mg PO DINNER 30 Days Qty: 30 0RF Jardiance 10 mg Tablet 10 mg PO DAILY 30 Days Qty: 30 0RF sacubitril-valsartan 24-26 mg Tablet 0.5 tab PO BID 30 Days Qty: 30 0RF mirtazapine 15 mg tablet 15 mg PO QHS Patient Comments: [NO ORIGINAL SIG] duloxetine 60 mg capsule,delayed release(DR/EC) 60 mg PO DAILY sennosides-docusate sodium [Senexon-S] 8.6-50 mg tablet 1 tab-cap PO BID sucralfate 100 mg/mL suspension 1 g PO Q6H Patient Comments: [NO ORIGINAL SIG] Xtampza ER 18 mg cap,sprinkl,ER12hr(DONT CRUSH) 18 mg PO BID Rx Instructions: must administer with a meal/food furosemide 20 mg tablet 20 mg PO DAILY Patient Comments: [NO ORIGINAL SIG] acetaminophen 325 mg capsule 650 mg PO Q4H PRN (Reason: fever or pain) albuterol sulfate [Ventolin HFA] 90 mcg/actuation HFA aerosol inhaler 2 inh inhalation Q4H PRN (Reason: shortness of breath or wheezing) Enema 19-7 gram/118 mL enema 118 ml NV PRN PRN (Reason: constipation) ketoconazole 2 % shampoo 1 applic topical .COMPLEX Rx Instructions: 1 applic topically 3XW; magnesium hydroxide [Milk of Magnesia] 400 mg/5 mL suspension 30 ml PO DAILY PRN (Reason: constipation) Primary Care Provider: Sandy Barbosa Referrals: Sandy Barbosa MD [Primary Care Provider, Internal Medicine] Print Language: Chinese
[2025-08-24 10:23] LABS: SITE Not entered; VBG BASE EXCESS 5 mmol/L (-1.0-3.5); VBG PO2 48 mmHg (25-40); VBG SO2 82 % (50-70); VBG TCO2 31 mmol/L (23-33)
[2025-08-24 10:30] LABS: Anion Gap 10 (5-15); BUN 13 mg/dL (4-19); BUN/Creat Ratio 18.4 RATIO (10-20); Calcium,Total 10.6 mg/dL (7.6-11.0); Carbon Dioxide 28.9 mmol/L (21.0-32.0); Chloride 104 mmol/L (98-108); D-Dimer Quantitative (DVT/PE) 1.42 FEU/ug/m (0.27-0.49); Estimated Creatinine Clearance 67.68 ml/min (50-250); Glucose 133 mg/dL (70-99); Potassium 4.4 mmol/L (3.3-5.1); Pro- Brain NATRIURETIC PEPTIDE 15523 pg/mL (<=900); Troponin T High Sensitivity 27 ng/L (<=14)
[2025-08-24] MEDS: 0.9% Normal Saline (500mL Bag) 500 ML 1000 ML IV (11:00)
[2025-08-24] MEDS: DiphenhydrAMINE 50 MG/ML Syringe IV (11:00)
[2025-08-24 11:34] LABS: Mucous, Urine 0 SEEN /hpf (<or=2+); Red Blood Cells-Urine 0 SEEN /hpf (0-5)
--- NOTE | 2025-08-24 12:00 | CT_ITS ---
PROCEDURE: CTA CHEST W/WO CONTRAST 08/24/2025 REASON FOR EXAM: PE TECHNIQUE: Procedure Code: [id number] Modality: CT Procedure: CTA CHEST W/WO CONTRAST CTA chest was performed with IV contrast. Multiplanar reformats and MIP reconstructions were generated. CONTRAST: Isovue 370 VOLUME: 59 mL One or more dose reduction techniques were used (e.g., Automated exposure control, adjustment of the mA and/or kV according to patient size, use of iterative reconstruction technique). RADIATION DOSE SUMMARY: CTDlvol: 11.87+ 12.45 mGy DLP: 424.59 mGycm COMPARISON: 11/30/2023 FINDINGS: Variable overall moderate motion limitation limiting sensitivity for peripheral pulmonary embolism, moderate to severe in some areas. Heart/pericardium: Advanced three-vessel coronary atherosclerosis and/or stents. Borderline mild cardiomegaly. Trace mitral/aortic annular calcification. Aorta: Mzritnud-ol-brdagn atherosclerosis. Pulmonary arteries: Mild enlargement of the central pulmonary arteries may suggest pulmonary arterial hypertension.. No central or definite pulmonary embolism is identified allowing for notable limitations. Lymph nodes: Subcarinal node, 16 mm short axis.. Lungs/pleura: Trace LEFT pleural effusion. Bibasilar interlobular septal thickening. Mild airspace disease favorable for atelectasis/scarring. Airways: Grossly unremarkable. Chest wall: Question a RIGHT lobe thyroid nodule versus artifact. Upper abdomen: Reflux of contrast into the somewhat distended IVC as well as the hepatic veins is a nonspecific finding which can be seen in RIGHT heart dysfunction. Atherosclerosis. Moderate to large hiatal hernia.. Musculoskeletal: Demineralization. Mild degenerative findings. Slight increase in the degree of vertebral body height loss at T7, age indeterminate. CT/CTA Chest W/WO Contrast IMPRESSION: 1. No central or definite pulmonary embolism identified allowing for notable li mitations. 2. Borderline mild cardiomegaly with vascular findings suggestive of RIGHT hear t dysfunction, likely interstitial edema, and trace LEFT pleural effusion. 3. Demineralization with slight increase in the degree of vertebral body height loss at T7 since 11/30/2023, age indeterminate. Correlate with history and point tenderness. 4. Mild mediastinal lymphadenopathy, nonspecific and potentially reactive in th e absence of known malignancy. Correlate with medical history and follow-up as indicated. 5. Recommend outpatient thyroid ultrasound.. 6. Additional description as above. Incidental Finding Alert: Recommend follow-up as above. Management of incident al findings should follow the [employer] (ACR) Incidental Findings Committee recommendations. Reading Location: [id number]
[2025-08-24 12:09] LABS: Color, Urine Yellow (Yellow); Glucose, Dipstick 1000 mg/dl (Normal); Ketone-Dipstick Negative (Negative); Leukocyte Esterase-Dipstick 25 /ul (Negative); Nitrite-Dipstick Positive (Negative); Occult Blood-Urine 25 /ul (Negative); Protein-Dipstick 30 mg/dl (Negative); Specific Gravity, Urine 1.010 (1.002-1.030); Urine Bilirubin Dipstick Negative (Negative)
[2025-08-24 12:32] LABS: Squamous Epithelial Cells - UA 10-25 SEEN /hpf (5-10)
[2025-08-24 13:41] LABS: Troponin T High Sens 2 HR 30 ng/L (<=14)
--- NOTE | 2025-08-24 13:45 | ED.RN ---
pts son called and asked what is going on with his mother. I explained that she is complaining of SOB and that she has not really complained about her abdomen hurting at all. He said he sat with her for 3 hours and she had a bucket in front of her complaining about being sick. I told him I was looking right at her (pt is in bed 2) and that she is sitting comfortably in the bed. I did explain to the son that as soon as she takes her O2 off her oxygen saturation drops. I asked if she has O2 at home and he said that he needs to get her bottles filled.
--- NOTE | 2025-08-24 14:12 | HP.PCM.HOS_ITS ---
HPI - General General Date of Admission: 08/24/25 Date of Service: 08/24/25 Chief Complaint: Shortness of breath for last 3 days HPI Narrative ECHO KERNS, is a 69 F came to ED with acute onset of shortness of breath. Patient states for last 2-3 days but she was discharged yesterday without mention of shortness of breath but has history of chronic HFrEF with EF 25%, LV mural thrombus on systemic anticoagulation with Xarelto. In ED if she is short of breath, speaks few words to phrases, incomprehensible therefore detailed history unobtainable. Patient states he feels chest tightness but she states yes to all close ended questions including radiation to interscapular area, jaws and shoulder therefore unclear about reliability. She had 1 dose of DuoNeb nebulization, IV Solu-Medrol but is still short of breath therefore another dose ordered. Lasix 40 mg IV ordered. ABG ordered. She is on 2 L of home O2 and uses nebulizer machine but denies NIPPV. [facility] Medical History Chronic pain Kidney disease Asthma Irregular heart beat Congestive heart failure (CHF) TIA (transient ischemic attack) Wears glasses Post-menopausal Arthritis History of renal disease High cholesterol DVT (deep venous thrombosis) Easy bruising Excessive bleeding Back pain Injury of back History of ulceration Difficulty chewing Gastric reflux Shortness of breath on exertion Hoarseness Chronic cough Leg cramps History of pain when walking History of edema History of echocardiogram History of stress test Cardiology follow-up encounter History of CHF (congestive heart failure) History of irregular heartbeat Chest pain Bullous emphysema COPD with asthma Esophagitis, unspecified without bleeding Unspecified combined 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 Other chronic pain Elevated troponin Sustained SVT Depression Osteoporosis Kidney stones Smoker Myocardial infarct History of non-ST elevation myocardial infarction (NSTEMI) (09/01/21) Essential hypertension Old anterior wall myocardial infarction Ischemic cardiomyopathy Opiate dependence Anxiety and depression TIA (transient ischemic attack) Obesity (BMI 30.0-34.9) EVELYN (obstructive sleep apnea) Personal history of transient ischemic attack (TIA), and cerebral infarction without residual deficits COPD (chronic obstructive pulmonary disease) Calculus of left kidney GERD (gastroesophageal reflux disease) Hyperlipidemia Atherosclerotic heart disease of [place] coronary artery without angina pectoris Tobacco abuse Home Medications ?Medication ?Instructions ?Recorded ?Last Taken ?Type inhalational spacing device #1 ea 02/17/23 Unknown Rx (Aerochamber MV spacer) lorazepam 1 mg tablet (Ativan) 1 mg PO TID PRN anxiety 07/16/23 09/27/24 History nitroglycerin 0.4 mg sublingual 0.4 mg buccal Q5M PRN chest pain 07/29/23 Unknown History tablet albuterol 90 mcg-budesonide 80 1 - 2 inh inhalation BI D PRN 09/28/24 09/27/24 History mcg/actuation HFA aerosol inhaler shortness of breath (Airsupra) atorvastatin 40 mg tablet 40 mg PO QHS cholesterol 09/27/24 History cholecalciferol (vitamin D3) 125 125 mcg PO DAILY supp lement 09/28/24 09/27/24 History mcg (5,000 unit) capsule hydrocodone-acetaminophen 5-325mg 1 tab PO BID pain 09/27/24 History 5mg-325mg polyethylene glycol 3350 17 17 g PO DAILY constipation 09/28/24 09/27/24 History gram/dose oral powder promethazine 25 mg tablet 25 mg PO Q6H PRN nausea and 09/28/24 Unknown History vomiting carvedilol 25 mg tablet 25 mg PO BID heart #120 tabs 10/04/24 Unknown Rx omeprazole 40 mg capsule,delayed 40 mg PO QDAY GERD Unknown History release potassium chloride 20 mEq 20 meq PO QDAY supplement Unknown History tablet,extended release spironolactone 25 mg tablet 25 mg PO QDAY blood pressu re 01/13/25 Unknown History empagliflozin 10 mg tablet 10 mg PO DAILY diabetes 30 days 05/29/25 Unknown Rx (Jardiance) #30 tabs rivaroxaban 20 mg tablet (Xarelto) 20 mg PO DINNER blo od thinner 30 05/29/25 Unknown Rx days #30 tabs sacubitril 24 mg-valsartan 26 mg 0.5 tab PO BID blood pressure 05/29/25 Unknown Rx tablet days #30 tabs acetaminophen 325 mg capsule 650 mg PO Q4H PRN fever o r pain 08/21/25 Unknown History albuterol sulfate 90 mcg/actuation 2 inh inhalation Q4 H PRN shortness 08/21/25 Unknown History aerosol inhaler (Ventolin HFA) of breath or wheezing duloxetine 60 mg capsule,delayed 60 mg PO DAILY mental health 08/21/25 Unknown History release furosemide 20 mg tablet 20 mg PO DAILY diuretic 08/07 01/29 Unknown History ketoconazole 2 % shampoo [address] bertha skin 08/21/25 Unknown History magnesium hydroxide 400 mg/5 mL 30 ml PO DAILY PRN con stipation 08/21/25 Unknown History oral suspension (Milk of Magnesia) mirtazapine 15 mg tablet 15 mg PO QHS mental health 1 10/22/24 Unknown History oxycodone myristate 18 mg capsule 18 mg PO BID pain Unknown History sprinkle extended release 12hr(DON'T CRUSH) (Xtampza ER) sennosides 8.6 mg-docusate sodium 1 tab-cap PO BID lax ative 08/21/25 Unknown History 50 mg tablet ([place]-S) sodium phosphates 19 gram-7 118 ml NE PRN PRN constipa tion 08/21/25 Unknown History gram/118 mL enema (Enema) sucralfate 100 mg/mL oral 1 g PO Q6H reflux 08/21/25 U nknown History suspension Allergy/AdvReac Type Severity Reaction Status Date / Time Iodinated Contrast Media Allergy SOB Verified 08/24/25 09:37 (iodine contrast) Family History Mother Hypertension CAD (coronary artery disease) CVA (cerebral vascular accident) Myocardial infarction Grandmother Myocardial infarction Surgical History History of cholecystectomy Hx of esophagogastroduodenoscopy History of cardiac catheterization History of hysterectomy History of left heart catheterization (01/20/22) History of total hysterectomy Hx of appendectomy Social History household members: none housing: assisted living facility Smoking Status: Current some day smoker tobacco type: cigarettes alcohol intake: never substance use type: does not use ROS ROS Narrative 14 system ROS unobtainable as patient very short of breath not able to give history and respiratory distress Review of Systems ROS Unobtainable: due to mental status Patient's Goals Of Care . Unable to discuss care goals with the patient and or patient signs and displays sales representative at this time: Yes Vital Signs Vital Signs Vital Signs: 08/24/25 09:30 08/24/25 09:35 08/24/25 09:35 Temperature 97.1 F L 97.1 F L Temperature Source Temporal Temporal Pulse Rate 106 H 103 H 105 H Respiratory Rate 33 H 29 H 31 H Respiratory Effort Respiratory Depth Respiratory Pattern Blood Pressure 175/100 H 175/100 H 175/100 H Blood Pressure Mean 125 125 125 Pulse Ox 95 96 96 Oxygen Delivery Method Nasal Cannula Nasal Cannula Nasal Cannula Oxygen Flow Rate (L/min) 2 2 2 08/24/25 09:38 08/24/25 09:52 08/24/25 10:39 Temperature Temperature Source Pulse Rate 100 Respiratory Rate 19 H Respiratory Effort Short of Breath Labored Respiratory Depth Normal Respiratory Pattern Tachypnea Normal Blood Pressure Blood Pressure Mean Pulse Ox Oxygen Delivery Method Nasal Cannula Room Air Oxygen Flow Rate (L/min) 2 08/24/25 11:39 08/24/25 12:14 08/24/25 13:00 Temperature 98.5 F 97.7 F L 98.1 F Temperature Source Oral Oral Oral Pulse Rate 97 79 95 Respiratory Rate 17 16 28 H Respiratory Effort Respiratory Depth Respiratory Pattern Blood Pressure 145/78 H 142/87 H 160/104 H Blood Pressure Mean 100 105 122 Pulse Ox 96 97 98 Oxygen Delivery Method Room Air Room Air Nasal Cannula Oxygen Flow Rate (L/min) 4 Weight Weight: 170 lb 3.15 oz Body Mass Index (BMI) 29.2 Physical Exam Narrative General: Awake, respiratory distress, orientation could not be ascertained HEENT: Atraumatic, PERRLA, EOMI, Normocephalic. Oral: Oral mucosa dry Neck: Supple, JVD elevated, Negative Carotid Bruits Chest wall/Lungs: Air entry severely diminished in all lung flores. Bilateral expiratory diffuse wheezing shallow and rapid breathing, tachypnea and on 4 L of oxygen Cardiovascular: Sinus tachycardia, no murmur gallop Abdomen: Bowel Sounds Present, Soft, Non Tender, Non-Distended : No dysuria. No renal angle tenderness. No suprapubic tenderness. Extremities: No edema, Capillary Refill Less than 3 Seconds Skin: No rashes, No breakdown Musculoskeletal: No Tenderness to Palpation of Joints or Extremities Neurological: Cranial nerves II-XII grossly intact, DTR 2+/4. No acute focal neurological deficit. Psych/Mental Status: Respiratory distress, flat affect Results Lab / Micro Data 08/24/25 09:40 08/24/25 09:40 Labs: Laboratory Results - last 24 hr 08/24/25 09:40: WBC 10.8, RBC 4.16 L, Hgb 12.9, Hct 41.3, MCV 99.3 H, MCH 31.0, MCHC 31.2 L, RDW Std Deviation 47.1 H, RDW Coeff of [place] 13.1, Plt Count 351, MPV 10.4, Immature Gran % (Auto) 0.700, Neut % (Auto) 81.7 H, Lymph % (Auto) 8.8 L, [place] % (Auto) 7.8, Eos % (Auto) 0.4, Baso % (Auto) 0.6, Absolute Neuts (auto) 8.8 H, Absolute Lymphs (auto) 0.95, Nucleated RBC % 0, D-Dimer Quant (PE/DVT) 1.42 H*, Sodium 143, Potassium 4.4, Chloride 104, Carbon Dioxide 28.9, Anion Gap 10, BUN 13, Creatinine 0.68 L, Estim Creat Clear Calc 67.68, Est GFR (MDRD) Non- Af 95, BUN/Creatinine Ratio 18.4, Glucose 133 H, Calcium 10.6, Troponin T High Sens 27 H D, [place] [address] H 08/24/25 11:30: Urine Color Yellow, Urine Clarity Sl. Cloudy, Urine pH 6.0, Ur Specific [place] 1.010, Urine Protein 30 H, Urine Glucose (UA) 1000 H, Urine Ketones Negative, Urine Occult Blood 25 H, Urine Nitrite Positive H, Urine Bilirubin Negative, Urine Urobilinogen Normal, Ur Leukocyte Esterase 25 H, Urine RBC 0 SEEN, Urine WBC 5-10 SEEN, Ur Squamous Epith Cells 10-25 SEEN, Urine Bacteria 3+, Urine Mucus 0 SEEN 08/24/25 12:10: Troponin T Hi Sens 2 Hr 30 H Micro: Microbiology 08/24/25 10:09 Mucosa - Nose SARS-CoV-2, Influenza & RSV (PCR) - Final ABG Data ABG results: ABG 08/24/25 10:20 Specimen Type JACKI Sample Site Not entered VBG pH 7.37 VBG pO2 48 H VBG HCO3 30 H VBG Total CO2 31 VBG O2 Sat (Calc) 82 H VBG Base Excess 5 H POC Mix VBG pCO2 Pt Tmp 51.7 H O2 Delivery Device Not entered Imaging Radiology Impression Chest CTA 08/24/25 12:00 IMPRESSION: 1. No central or definite pulmonary embolism identified allowing for notable limitations. 2. Borderline mild cardiomegaly with vascular findings suggestive of RIGHT heart dysfunction, likely interstitial edema, and trace LEFT pleural effusion. 3. Demineralization with slight increase in the degree of vertebral body height loss at T7 since 11/30/2023, age indeterminate. Correlate with history and point tenderness. 4. Mild mediastinal lymphadenopathy, nonspecific and potentially reactive in the absence of known malignancy. Correlate with medical history and follow-up as indicated. 5. Recommend outpatient thyroid ultrasound.. 6. Additional description as above. Incidental Finding Alert: Recommend follow-up as above. Management of incidental findings should follow the [employer] (ACR) Incidental Findings Committee recommendations. Reading Location: [id number] Assessment & Plan Assessment/Plan (1) Acute encephalopathy: (2) Acute on chronic respiratory failure with hypoxia and hypercapnia: PLAN: Plan This 61-year-old female admitted with acute onset of shortness of breath exacerbated over the last 2 to 3 days 1. Acute on chronic combined respiratory failure mostly due to COPD exacerbation: Admitted in ICU. ABG 7.29/59/89/30 on 4 L of oxygen. No previous ABG available to compare but VBG shows mixed pCO2 53.8 and 51.7 therefore chronic CO2 retainer. Chest CT in ED reviewed which shows mild interstitial edema and trace left pleural effusion but no definite/central PE. BiPAP ordered 2. COPD exacerbation, exact etiology unclear suspected viral bronchitis: Patient is being managed on scheduled bronchodilator, IV Solu-Medrol, Mucinex, incentive spirometry and Pep. Triple PCR for SARS-CoV-2, flu and RSV are negative. Respiratory panel urinary antigens added. Chest CTA negative for consolidation. IV azithromycin ordered for COPD exacerbation. 3. Mild acute on chronic HFrEF: Patient has EF 25%. Lasix 40 milligram IV stat and then every 12 hourly. It seems patient had recent JOVANY therefore monitor kidney function. 4. Acute metabolic encephalopathy: Manage underlying condition. Orientation cues. 5. Recent JOVANY: During last admission on 08/21 creatinine is 1.58 with baseline creatinine 0.7. Most recent creatinine 0.68. Needs diuresis. Monitor kidney function and urine output 6. Mild hypernatremia: On previous admission sodium was 146. On admission 143. 7. LV mural thrombus: On systemic anticoagulant Xarelto 8. Chronic pain syndrome follows pain management Dr. Forrest as an outpatient. Physical deconditioning. PT and OT ordered 7. Anxiety with depression: Hold antidepressant medications. 8. Hypertension: BP is high. On IV Lasix. IV hydralazine as needed. 9. Dyslipidemia: Statin 3 10. GERD ? On omeprazole DVT prophylaxis ? Patient already on systemic anticoagulation with Xarelto Living will/advanced directive/end of life care: Patient could not tell me whether she has living will or advanced directive most likely because of extreme shortness of breath. After discussion of benefits/risks procedures involved with full code, DNR CC arrest and DNR CC, the patient opted for DNR CC arrest Patient doesn't want artificial life support including intubation, tube feed, ventilator and/chest compression, central venous catheter, vasopressor and DC shock if needed Total time spent in [id number] encounter in discussion of advanced directive 17 minutes. Clinical Impression(s) from Imaging Studies Chest CTA 08/24/25 12:00 IMPRESSION: 1. No central or definite pulmonary embolism identified allowing for notable limitations. 2. Borderline mild cardiomegaly with vascular findings suggestive of RIGHT heart dysfunction, likely interstitial edema, and trace LEFT pleural effusion. 3. Demineralization with slight increase in the degree of vertebral body height loss at T7 since 11/30/2023, age indeterminate. Correlate with history and point tenderness. 4. Mild mediastinal lymphadenopathy, nonspecific and potentially reactive in the absence of known malignancy. Correlate with medical history and follow-up as indicated. 5. Recommend outpatient thyroid ultrasound.. 6. Additional description as above. Charges/Coding Visit Charges Inpatient E&M: 43239 Init Hosp L3 Procedures Hospitalists Procedures: 06038 Advncd Care Plan 30 Min
[2025-08-24 14:52] LABS: Base Excess 2 mmol/L (-2 to +2); FI02 4.0; PO2 89 mmHG (75-100); SITE L Brach; SO2 95 % (94-98)
--- NOTE | 2025-08-24 15:03 | ED.RN ---
Son was called and made aware that she is being admitted and what room she is going to.
[2025-08-24 16:15] LABS: Magnesium 1.4 mg/dL (1.5-2.2)
[2025-08-24] MEDS: Azithromycin 500 MG in 0.9% Normal Saline (250mL Bag) 250 ML 250 MG IV (17:47)
--- NOTE | 2025-08-24 18:22 | CON.PCM.CC_ITS ---
HPI Consult Data Date of Consult: 08/24/25 HPI Narrative Reason for Consultation: sob HPI Narrative: 69 yo wf with hx of CHFref, COPD, Chronic Hypoxemic/hypercapnic resp FAilure, Mural Thrombus on AC admitted 24 hours after d/c. During that admit pt had JOVANY from over diuresis. Placed on IVFs with normalization of Cr and Na. Pt presents one day later with increasing sob. Noted to have markedly elevated BNP. CT chest showed subtle diffuse GGO. She was mildly hypercapnic in ED and placed on BIPAP which she did not tolerate. Given one dose of lasix with excellent uop. Started on nebs and steroids for CoPd. On baseline 2L of o2. [facility] Medical History Chronic pain Kidney disease Asthma Irregular heart beat Congestive heart failure (CHF) TIA (transient ischemic attack) Wears glasses Post-menopausal Arthritis History of renal disease High cholesterol DVT (deep venous thrombosis) Easy bruising Excessive bleeding Back pain Injury of back History of ulceration Difficulty chewing Gastric reflux Shortness of breath on exertion Hoarseness Chronic cough Leg cramps History of pain when walking History of edema History of echocardiogram History of stress test Cardiology follow-up encounter History of CHF (congestive heart failure) History of irregular heartbeat Chest pain Bullous emphysema COPD with asthma Esophagitis, unspecified without bleeding Unspecified combined 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 Other chronic pain Elevated troponin Sustained SVT Depression Osteoporosis Kidney stones Smoker Myocardial infarct History of non-ST elevation myocardial infarction (NSTEMI) (09/01/21) Essential hypertension Old anterior wall myocardial infarction Ischemic cardiomyopathy Opiate dependence Anxiety and depression TIA (transient ischemic attack) Obesity (BMI 30.0-34.9) EVELYN (obstructive sleep apnea) Personal history of transient ischemic attack (TIA), and cerebral infarction without residual deficits COPD (chronic obstructive pulmonary disease) Calculus of left kidney GERD (gastroesophageal reflux disease) Hyperlipidemia 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 Tobacco abuse Home Medications ?Medication ?Instructions ?Recorded ?Last Taken ?Type inhalational spacing device #1 ea 02/17/23 Unknown Rx (Aerochamber MV spacer) lorazepam 1 mg tablet (Ativan) 1 mg PO TID PRN anxiety 07/16/23 09/27/24 History nitroglycerin 0.4 mg sublingual 0.4 mg buccal Q5M PRN chest pain 07/29/23 Unknown History tablet albuterol 90 mcg-budesonide 80 1 - 2 inh inhalation BI D PRN 09/28/24 09/27/24 History mcg/actuation HFA aerosol inhaler shortness of breath (Airsupra) atorvastatin 40 mg tablet 40 mg PO QHS cholesterol 09/27/24 History cholecalciferol (vitamin D3) 125 125 mcg PO DAILY supp lement 09/28/24 09/27/24 History mcg (5,000 unit) capsule hydrocodone-acetaminophen 5-325mg 1 tab PO BID pain 09/27/24 History 5mg-325mg polyethylene glycol 3350 17 17 g PO DAILY constipation 09/28/24 09/27/24 History gram/dose oral powder promethazine 25 mg tablet 25 mg PO Q6H PRN nausea and 09/28/24 Unknown History vomiting carvedilol 25 mg tablet 25 mg PO BID heart #120 tabs 10/04/24 Unknown Rx omeprazole 40 mg capsule,delayed 40 mg PO QDAY GERD Unknown History release potassium chloride 20 mEq 20 meq PO QDAY supplement Unknown History tablet,extended release spironolactone 25 mg tablet 25 mg PO QDAY blood pressu re 01/13/25 Unknown History empagliflozin 10 mg tablet 10 mg PO DAILY diabetes 30 days 05/29/25 Unknown Rx (Jardiance) #30 tabs rivaroxaban 20 mg tablet (Xarelto) 20 mg PO DINNER blo od thinner 30 05/29/25 Unknown Rx days #30 tabs sacubitril 24 mg-valsartan 26 mg 0.5 tab PO BID blood pressure 30 05/29/25 Unknown Rx tablet days #30 tabs acetaminophen 325 mg capsule 650 mg PO Q4H PRN fever o r pain 08/21/25 Unknown History albuterol sulfate 90 mcg/actuation 2 inh inhalation Q4 H PRN shortness 08/21/25 Unknown History aerosol inhaler (Ventolin HFA) of breath or wheezing duloxetine 60 mg capsule,delayed 60 mg PO DAILY mental health 08/21/25 Unknown History release furosemide 20 mg tablet 20 mg PO DAILY diuretic 08/07 01/29 Unknown History ketoconazole 2 % shampoo [address] bertha skin 08/21/25 Unknown History magnesium hydroxide 400 mg/5 mL 30 ml PO DAILY PRN con stipation 08/21/25 Unknown History oral suspension (Milk of Magnesia) mirtazapine 15 mg tablet 15 mg PO QHS mental health 1 10/22/24 Unknown History oxycodone myristate 18 mg capsule 18 mg PO BID pain Unknown History sprinkle extended release 12hr(DON'T CRUSH) (Xtampza ER) sennosides 8.6 mg-docusate sodium 1 tab-cap PO BID lax ative 08/21/25 Unknown History 50 mg tablet (Senexon-S) sodium phosphates 19 gram-7 118 ml KS PRN PRN constipa tion 08/21/25 Unknown History gram/118 mL enema (Enema) sucralfate 100 mg/mL oral 1 g PO Q6H reflux 08/21/25 U nknown History suspension OXYGEN - Supplemental ([facility] Pulmonary Information 08/24 Unknown History INFORMATIONAL USE ONLY) Allergy/AdvReac Type Severity Reaction Status Date / Time Iodinated Contrast Media Allergy SOB Verified 08/24/25 09:37 (iodine contrast) Family History Mother Hypertension CAD (coronary artery disease) CVA (cerebral vascular accident) Myocardial infarction Grandmother Myocardial infarction Surgical History History of cholecystectomy Hx of esophagogastroduodenoscopy History of cardiac catheterization History of hysterectomy History of left heart catheterization (01/20/22) History of total hysterectomy Hx of appendectomy Social History household members: none housing: assisted living facility Smoking Status: Current some day smoker tobacco type: cigarettes alcohol intake: never substance use type: does not use ROS ROS Narrative as per HPI Objective Data Objective Data Vital Signs: Vital Signs Last response 3 Temperature 36.3 C L 08/24/25 16:45 Temperature Source Temporal 08/24/25 16:45 Pulse Rate 112 H 08/24/25 18:00 Respiratory Rate 22 H 08/24/25 18:00 Respiratory Effort Short of Breath, Labored 08/24/25 09:38 Respiratory Depth Normal 08/24/25 09:38 Respiratory Pattern Tachypnea 08/24/25 14:26 Blood Pressure 150/78 H 08/24/25 18:00 Blood Pressure Mean 102 08/24/25 18:00 Blood Pressure Source Monitor 08/24/25 18:00 Blood Pressure Position Semi-Fowlers 08/24/25 18:00 Blood Pressure Location Left Arm 08/24/25 18:00 Pulse Ox 95 08/24/25 18:00 Oxygen Delivery Method Nasal Cannula 08/24/25 18:00 Oxygen Flow Rate (L/min) 2 08/24/25 18:00 Fraction of Inspired Oxygen (FIO2) 35 08/24/25 15:00 I&O: I&O Last 24 Hours 3 08/23/25 08/24/25 08/24/25 23:59 11:59 23:59 Intake Total 520 / 520 Balance 520 / 520 I&O: Total Stay 3 08/24/25 09:29 thru 08/24/25 18:00 Intake Total 520 Balance 520 Current Meds Ordered / Administered: Current meds ordered / Administered 3 Generic Name Dose Route Start Last Admin Trade Name Freq PRN Reason Stop Dose Admin Acetaminophen 650 mg 08/24/25 16:28 Acetaminophen 325 Mg Tablet PO Q4H PRN PRN Pain 1-10 or Fever Albuterol/Ipratropium 3 ml 08/24/25 15:15 Ipratropium/Albuterol Sulfate 3 Ml Ampul.Neb INHALATION Q4H.RT [facility] Atorvastatin Calcium 40 mg 08/24/25 22:00 Atorvastatin Calcium 40 Mg Tablet PO QHS [facility] Carvedilol 25 mg 08/24/25 17:00 08/24/25 17:52 Carvedilol 25 Mg Tablet PO 25 mg BIDCM [facility] Administration Protocol Cholecalciferol 125 mcg 08/25/25 10:00 Cholecalciferol (Vit D3) 125 Mcg Capsule (5,000 Units) PO DAILY [facility] Duloxetine HCl 60 mg 08/25/25 10:00 Duloxetine Hcl 60 Mg Capsule PO DAILY [facility] Azithromycin 500 mg/ Sodium 250 mls @ 250 mls/hr 08/24/25 16:00 08/24/25 17:47 Chloride IV 250 mls/hr Q24 [facility] Administration Lorazepam 0.5 mg 08/24/25 16:28 Lorazepam 0.5 Mg Tablet PO TID PRN ANXIETY Methylprednisolone Sodium Succinate 40 mg 08/24/25 15:30 08/24/25 17:48 Methylprednisolone Sod Succ 40 Mg/Ml Vial IV 40 mg Q8 [facility] Administration Nitroglycerin 0.4 mg 08/24/25 16:32 Nitroglycerin (Inpatient Use) 0.4 Mg Tab.Subl SL Q5M PRN CARDIAC/CHEST PAIN Oxycodone HCl 20 mg 08/24/25 22:00 Oxycodone Hcl Cr 10 Mg Tablet PO BID [facility] Oxycodone HCl 5 mg 08/24/25 16:28 Oxycodone 5 Mg Tablet PO Q4H PRN PRN Pain Score 6-10 or Pre PT/OT Pantoprazole Sodium 40 mg 08/24/25 22:00 Pantoprazole Sodium 40 Mg Tablet PO BID [facility] Polyethylene Glycol 17 gm 08/25/25 10:00 Polyethylene Glycol 3350 17 Gm Packet PO DAILY [facility] Rivaroxaban 20 mg 08/24/25 17:00 08/24/25 17:52 Rivaroxaban 20 Mg Tablet PO 20 mg DINNER [facility] Administration Sacubitril/Valsartan 0.5 each 08/24/25 22:00 Sacubitril/Valsartan 24/26 Mg Tablet PO BID [facility] Senna/Docusate Sodium 1 tablet 08/24/25 22:00 Senna/Docusate Sodium 1 Tablet PO BID [facility] Sodium Chloride 10 - 40 ml 08/24/25 16:55 0.9% Saline Lock 10 Ml Syringe IV UD PRN SALINE FLUSH Spironolactone 25 mg 08/25/25 10:00 Spironolactone 25 Mg Tablet PO DAILY [facility] Protocol Sucralfate 1 gm 08/24/25 22:00 Sucralfate 1 Gm Tablet PO 1HR_ACHS [facility] Physical Exam Narrative awake, a bit sluggish pupils:= o/p: dry CV: RRR Chest: no crackles, fair a/e, diminished throughout Abd: soft, nt, +bs Ext: No c/e/c Skin: no rashes Lab / Micro Data 08/24/25 09:40 08/24/25 09:40 Labs: Laboratory Results - last 24 hr 08/24/25 09:40: WBC 10.8, RBC 4.16 L, Hgb 12.9, Hct 41.3, MCV 99.3 H, MCH 31.0, MCHC 31.2 L, RDW Std Deviation 47.1 H, RDW Coeff of Sariah 13.1, Plt Count 351, MPV 10.4, Immature Gran % (Auto) 0.700, Neut % (Auto) 81.7 H, Lymph % (Auto) 8.8 L, [place] % (Auto) 7.8, Eos % (Auto) 0.4, Baso % (Auto) 0.6, Absolute Neuts (auto) 8.8 H, Absolute Lymphs (auto) 0.95, Nucleated RBC % 0, D-Dimer Quant (PE/DVT) 1.42 H*, Sodium 143, Potassium 4.4, Chloride 104, Carbon Dioxide 28.9, Anion Gap 10, BUN 13, Creatinine 0.68 L, Estim Creat Clear Calc 67.68, Est GFR (MDRD) Non- Af 95, BUN/Creatinine Ratio 18.4, Glucose 133 H, Calcium 10.6, Troponin T High Sens 27 H D, [place] [address] H 08/24/25 11:30: Urine Color Yellow, Urine Clarity Sl. Cloudy, Urine pH 6.0, Ur Specific [place] 1.010, Urine Protein 30 H, Urine Glucose (UA) 1000 H, Urine Ketones Negative, Urine Occult Blood 25 H, Urine Nitrite Positive H, Urine Bilirubin Negative, Urine Urobilinogen Normal, Ur Leukocyte Esterase 25 H, Urine RBC 0 SEEN, Urine WBC 5-10 SEEN, Ur Squamous Epith Cells 10-25 SEEN, Urine Bacteria 3+, Urine Mucus 0 SEEN 08/24/25 12:10: Magnesium 1.4 L, Troponin T Hi Sens 2 Hr 30 H Micro: Microbiology 08/24/25 10:09 Mucosa - Nose SARS-CoV-2, Influenza & RSV (PCR) - Final ABG Data ABG results: ABG 08/24/25 08/24/25 10:20 14:48 Specimen Type JACKI ART Sample Site Not entered L Brach pH 7.29 L Bicarbonate Actual 28.6 H Total CO2 30 Base Excess 2 O2 Saturation 95 O2 % 4.0 ABG pCO2 59.1 H ABG pO2 89 VBG pH 7.37 VBG pO2 48 H VBG HCO3 30 H VBG Total CO2 31 VBG O2 Sat (Calc) 82 H VBG Base Excess 5 H POC Mix VBG pCO2 Pt Tmp 51.7 H O2 Delivery Device Not entered Cannula Vent Mode Not entered Imaging Radiology Impression Chest CTA 08/24/25 12:00 IMPRESSION: 1. No central or definite pulmonary embolism identified allowing for notable limitations. 2. Borderline mild cardiomegaly with vascular findings suggestive of RIGHT heart dysfunction, likely interstitial edema, and trace LEFT pleural effusion. 3. Demineralization with slight increase in the degree of vertebral body height loss at T7 since 11/30/2023, age indeterminate. Correlate with history and point tenderness. 4. Mild mediastinal lymphadenopathy, nonspecific and potentially reactive in the absence of known malignancy. Correlate with medical history and follow-up as indicated. 5. Recommend outpatient thyroid ultrasound.. 6. Additional description as above. Incidental Finding Alert: Recommend follow-up as above. Management of incidental findings should follow the [employer] (ACR) Incidental Findings Committee recommendations. Reading Location: [id number] Assessment and Plan . Assessment and plan: A/P: 1. Resp Failure: acute on chronic- Hypoxemic/Hypercapnic. Did not tolerate BIPAP. Awake and comfortable. Continue supplemental O2 2. COPD Exac: Continue nebs and steroids. 3. CHF exac: acute on chronic. Systolic. BNP very elevated. CT showed GGO. Continue lasix 4. Mural Thrombus: continue DOAC 5. FEN: oral diet Calvin Garrett MD The entirety of this encounter was done via Telemedicine
--- NOTE | 2025-08-24 19:41 | CM.ED ---
Social Work Patient discharged back to [facility] from [facility] on 08/22/2025. SW attempted to meet with patient, however patient did not want to answer questions at this time. Brianna Cano, [employer] TEACHER, [employer]
[2025-08-24] MEDS: SACUBITRIL/VALSARTAN 24/26 MG TABLET 0.5 EACH PO (21:35)
[2025-08-24] MEDS: Senna/Docusate Sodium 1 Tablet PO (21:37)
[2025-08-24] MEDS: oxyCODONE HCl Cr 10 MG Tablet 20 MG PO (21:45)
[2025-08-25] VITALS (22 sets, daily range): BP systolic 116–149; BP diastolic 69–96; PULSE 69–106; RESP 12–19; TEMP 36.4–36.8; O2SAT 88–99; BMI 27.6
[2025-08-25 05:45] LABS: Hematocrit 38.0 % (37-47); Hemoglobin 12.2 g/dL (12.0-15.0); Immature Granulocytes Count 0.060 X10^3/uL (0.0-0.0); Mean Corp Hgb Conc 32.1 g/dL (32-36); Mean Corpuscular Volume 96.4 fL (81-99); Mean Platelet Vol. 10.1 fl (6.2-12.0); NRBC Flagged by Analyzer 0 % (0-5); Platelet Count 338 K/mm3 (150-450); RBC Distribution Width CV 13.3 % (11.6-14.6); RBC Distribution Width SD 46.6 fl (35.1-43.9); Red Blood Count 3.94 M/mm3 (4.2-5.4); White Blood Count 8.5 K/mm3 (4.4-11.0)
[2025-08-25 06:06] LABS: Anion Gap 12 (5-15); BUN 20 mg/dL (4-19); BUN/Creat Ratio 26.0 RATIO (10-20); Calcium,Total 10.5 mg/dL (7.6-11.0); Carbon Dioxide 27.8 mmol/L (21.0-32.0); Chloride 104 mmol/L (98-108); Estimated Creatinine Clearance 66.11 ml/min (50-250); Glucose 146 mg/dL (70-99); Potassium 4.0 mmol/L (3.3-5.1)
--- NOTE | 2025-08-25 07:15 | PCM.PN.HOSP ---
Reason for Visit Chief Complaint: Shortness of breath for last 3 days Objective Data Objective Data Vital Signs: Vital Signs Temp Pulse Resp BP Pulse Ox O2 Del Method O2 Flow Rate 97.9 F 93 15 116/85 H 96 Nasal Cannula 2 08/25/25 04:00 08/25/25 07:03 08/25/25 07:03 08/25/25 07:00 08/25/25 07:03 08/25/25 07:03 08/25/25 07:03 FiO2 2 08/25/25 04:00 Oxygen Flow Rate (L/min) 2 Oxygen Delivery Method Nasal Cannula Weight: 162 lb 0.636 oz Body Mass Index (BMI) 27.6 Intake & Output: Intake and Output for Last 24 Hours 08/23/25 08/24/25 08/25/25 23:59 23:59 23:59 Intake Total 770 / 770 300 / 300 Output Total 700 / 700 400 / 400 Balance 70 / 70 -100 / -100 Lab / Micro Data 08/25/25 05:35 08/25/25 05:35 Labs: Laboratory Results - last 24 hr 08/24/25 09:40: WBC 10.8, RBC 4.16 L, Hgb 12.9, Hct 41.3, MCV 99.3 H, MCH 31.0, MCHC 31.2 L, RDW Std Deviation 47.1 H, RDW Coeff of Sariah 13.1, Plt Count 351, MPV 10.4, Immature Gran % (Auto) 0.700, Neut % (Auto) 81.7 H, Lymph % (Auto) 8.8 L, [place] % (Auto) 7.8, Eos % (Auto) 0.4, Baso % (Auto) 0.6, Absolute Neuts (auto) 8.8 H, Absolute Lymphs (auto) 0.95, Nucleated RBC % 0, D-Dimer Quant (PE/DVT) 1.42 H*, Sodium 143, Potassium 4.4, Chloride 104, Carbon Dioxide 28.9, Anion Gap 10, BUN 13, Creatinine 0.68 L, Estim Creat Clear Calc 67.68, Est GFR (MDRD) Non-Af 95, BUN/Creatinine Ratio 18.4, Glucose 133 H, Calcium 10.6, Troponin T High Sens 27 H D, [place] [address] H 08/24/25 11:30: Urine Color Yellow, Urine Clarity Sl. Cloudy, Urine pH 6.0, Ur Specific [place] 1.010, Urine Protein 30 H, Urine Glucose (UA) 1000 H, Urine Ketones Negative, Urine Occult Blood 25 H, Urine Nitrite Positive H, Urine Bilirubin Negative, Urine Urobilinogen Normal, Ur Leukocyte Esterase 25 H, Urine RBC 0 SEEN, Urine WBC 5-10 SEEN, Ur Squamous Epith Cells 10-25 SEEN, Urine Bacteria 3+, Urine Mucus 0 SEEN 08/24/25 12:10: Magnesium 1.4 L, Troponin T Hi Sens 2 Hr 30 H 08/25/25 05:35: WBC 8.5, RBC 3.94 L, Hgb 12.2, Hct 38.0, MCV 96.4, MCH 31.0, MCHC 32.1, RDW Std Deviation 46.6 H, RDW Coeff of Sariah 13.3, Plt Count 338, MPV 10.1, Immature Gran % (Auto) 0.700, Neut % (Auto) 87.9 H, Lymph % (Auto) 9.5 L, [place] % (Auto) 1.7, Eos % (Auto) 0.0, Baso % (Auto) 0.2, Absolute Neuts (auto) 7.4, Absolute Lymphs (auto) 0.80 L, Nucleated RBC % 0, Sodium 144, Potassium 4.0, Chloride 104, Carbon Dioxide 27.8, Anion Gap 12, BUN 20 H, Creatinine 0.79, Estim Creat Clear Calc 66.11, Est GFR (MDRD) Non-Af 82, BUN/Creatinine Ratio 26.0 H, Glucose 146 H, Calcium 10.5 Micro: Microbiology 08/24/25 17:30 Nasal Secretion MRSA (PCR) - Final 08/24/25 16:32 Mucosa - Nasopharyngeal Respiratory Panel (PCR) - Final 08/24/25 00:19 Urine, Random Legionella Antigen - Final 08/24/25 00:19 Urine, Random Streptococcus pneumoniae Antigen (M - Final 08/24/25 10:09 Mucosa - Nose SARS-CoV-2, Influenza & RSV (PCR) - Final ABG Data ABG results: ABG 08/24/25 08/24/25 10:20 14:48 Specimen Type JACKI ART Sample Site Not entered L Brach pH 7.29 L Bicarbonate Actual 28.6 H Total CO2 30 Base Excess 2 O2 Saturation 95 O2 % 4.0 ABG pCO2 59.1 H ABG pO2 89 VBG pH 7.37 VBG pO2 48 H VBG HCO3 30 H VBG Total CO2 31 VBG O2 Sat (Calc) 82 H VBG Base Excess 5 H POC Mix VBG pCO2 Pt Tmp 51.7 H O2 Delivery Device Not entered Cannula Vent Mode Not entered Radiography Diagnostic Testing: Radiology Impression Chest CTA 08/24/25 12:00 IMPRESSION: 1. No central or definite pulmonary embolism identified allowing for notable limitations. 2. Borderline mild cardiomegaly with vascular findings suggestive of RIGHT heart dysfunction, likely interstitial edema, and trace LEFT pleural effusion. 3. Demineralization with slight increase in the degree of vertebral body height loss at T7 since 11/30/2023, age indeterminate. Correlate with history and point tenderness. 4. Mild mediastinal lymphadenopathy, nonspecific and potentially reactive in the absence of known malignancy. Correlate with medical history and follow-up as indicated. 5. Recommend outpatient thyroid ultrasound.. 6. Additional description as above. Incidental Finding Alert: Recommend follow-up as above. Management of incidental findings should follow the [employer] (ACR) Incidental Findings Committee recommendations. Reading Location: [facility] Physical Exam Narrative The patient did not wear BiPAP. Significant improvement in shortness of breath after the dose of the Lasix. Patient tries to remove the oxygen from the nose. Physical exam: General: Awake, alert oriented x 3. Follows simple, HEENT: Atraumatic, PERRLA, EOMI, Normocephalic. Oral: Oral mucosa dry Neck: Supple, JVD elevated, Negative Carotid Bruits Chest wall/Lungs: Air entry improved in both lungs. Mild bilateral wheezing on 2 L of oxygen Cardiovascular: NSR. No murmur gallop Abdomen: Bowel Sounds Present, Soft, Non Tender, Non-Distended : No dysuria. No renal angle tenderness. No suprapubic tenderness. Extremities: No edema, Capillary Refill Less than 3 Seconds Skin: No rashes, No breakdown Musculoskeletal: No Tenderness to Palpation of Joints or Extremities Neurological: Cranial nerves II-XII grossly intact, DTR 2+/4. No acute focal neurological deficit. Psych/Mental Status: Flat affect Assessment & Plan Assessment/Plan (1) Acute encephalopathy: (2) Acute on chronic respiratory failure with hypoxia and hypercapnia: PLAN: Plan This 61-year-old female admitted with acute onset of shortness of breath exacerbated over the last 2 to 3 days 1. Acute on chronic combined respiratory failure mostly due to COPD exacerbation: Admitted in ICU. ABG 7.29/59/89/30 on 4 L of oxygen. No previous ABG available to compare but VBG shows mixed pCO2 53.8 and 51.7 therefore chronic CO2 retainer. Chest CT in ED reviewed which shows mild interstitial edema and trace left pleural effusion but no definite/central PE. BiPAP ordered 08/25 shortness of breath is improved. Patient did not wear BiPAP last night. 2. COPD exacerbation, exact etiology unclear suspected viral bronchitis: Patient is being managed on scheduled bronchodilator, IV Solu-Medrol, Mucinex, incentive spirometry and Pep. Triple PCR for SARS-CoV-2, flu and RSV are negative. Respiratory panel urinary antigens added. Chest CTA negative for consolidation. IV azithromycin ordered for COPD exacerbation. 08/25: Respiratory panel, urinary antigens are negative. MRSA PCR negative. Continue above treatment 3. Mild acute on chronic HFrEF: Patient has EF 25%. Lasix 40 milligram IV stat and then every 12 hourly. It seems patient had recent JOVANY therefore monitor kidney function. 08/25: NT proBNP 15,500. Troponins mildly elevated most likely due to increased cardiac demand. Patient had excellent relief after 1 dose of 40 mg Lasix. Continue IV diuresis. 4. Acute metabolic encephalopathy: Manage underlying condition. Orientation cues. 08/25 improvement in mental status. AAO x 3. Acute metabolic encephalopathy resolved. 5. Recent JOVANY: During last admission on 08/21 creatinine is 1.58 with baseline creatinine 0.7. Most recent creatinine 0.68. Needs diuresis. Monitor kidney function and urine output 6. Mild hypernatremia: On previous admission sodium was 146. On admission 143. 7. LV mural thrombus: On systemic anticoagulant Xarelto 8. Chronic pain syndrome follows pain management Dr. Forrest as an outpatient. Physical deconditioning. PT and OT ordered 7. Anxiety with depression: Hold antidepressant medications. 8. Hypertension: BP is high. On IV Lasix. IV hydralazine as needed. 9. Dyslipidemia: Statin 3 10. GERD ? On omeprazole DVT prophylaxis ? Patient already on systemic anticoagulation with Xarelto Living will/advanced directive/end of life care: Patient could not tell me whether she has living will or advanced directive most likely because of extreme shortness of breath. After discussion of benefits/risks procedures involved with full code, DNR CC arrest and DNR CC, the patient opted for DNR CC arrest Patient doesn't want artificial life support including intubation, tube feed, ventilator and/chest compression, central venous catheter, vasopressor and DC shock if needed Clinical Impression(s) from Imaging Studies Chest CTA 08/24/25 12:00 IMPRESSION: 1. No central or definite pulmonary embolism identified allowing for notable limitations. 2. Borderline mild cardiomegaly with vascular findings suggestive of RIGHT heart dysfunction, likely interstitial edema, and trace LEFT pleural effusion. 3. Demineralization with slight increase in the degree of vertebral body height loss at T7 since 11/30/2023, age indeterminate. Correlate with history and point tenderness. 4. Mild mediastinal lymphadenopathy, nonspecific and potentially reactive in the absence of known malignancy. Correlate with medical history and follow-up as indicated. 5. Recommend outpatient thyroid ultrasound.. 6. Additional description as above. Charges/Coding Visit Charges Inpatient E&M: 56867 Subs Hosp L3
[2025-08-25] MEDS: SACUBITRIL/VALSARTAN 24/26 MG TABLET 0.5 EACH PO ×2 (08:10→21:08)
[2025-08-25] MEDS: Polyethylene Glycol 3350 17 GM PACKET PO (08:11)
[2025-08-25] MEDS: Senna/Docusate Sodium 1 Tablet PO ×2 (08:11→21:07)
[2025-08-25] MEDS: Cholecalciferol (Vit D3) 125 MCG CAPSULE (5,000 UNITS) PO (08:11)
[2025-08-25] MEDS: Azithromycin 500 MG in 0.9% Normal Saline (250mL Bag) 250 ML 250 MG IV (08:12)
[2025-08-25] MEDS: oxyCODONE HCl Cr 10 MG Tablet 20 MG PO ×2 (11:07→21:26)
--- NOTE | 2025-08-25 12:18 | CASEMGMT ---
Social Work Pt currently lives at [facility]. Pt was hospitalized 08/21-08/23 and returned to [facility]. ED visit 08/23 and returned to [facility] and readmitted to hospital 08/24. AC received a call from Chloe nurse at [facility] who states that per the Marker Machine Attendant at [facility], pts current level of care exceeds what [facility] can provide for pt. Pt will need to go to SNF for short term rehab prior to returning to [facility]. Pt baseline at [facility] is A&Ox3 and independent with all ADLS. [facility] provides meals and medication management. SW met with pt and introduced self and role of SW. Pt states that she lives with her daughter. When SW clarified does pt live with dgt or at [facility], pt is able to correct to say [facility]. Pt is able to state is in the hospital but is unable to state which hospital/city. Later in conversation, pt states she lives at the hospital. BIMS completed and pt scored7/15 indicating severe cognitive impairment. Pt is not able to state month, day or year. AC did inform pt that she cannot return to [facility] at this time, that SNF will be needed and that SW will phone pt's son/HCPOA to discuss. Pt agreeable. Phone call placed to pt son Sanju. No answer and VM not set up. SW will continue to attempt to contact him to discuss discharge plan. Pt has services through [facility]. Phone call to and spoke with the coverage line. Pt's CM is Beatriz Spaulding ([phone]) and pt is enrolled in the assisted living waiver program. AC updated that pt will need Skilled stay at SNF prior to return to [facility]. SW to provide CM with disposition at time of dc. Physician notified of DC plan. PLAN: SW to continue to reach out to pt's son to discuss senior care placement. Pt will need an accepting facility and precert prior to DC. BORIS Kidd
--- NOTE | 2025-08-25 13:28 | PN.CC_ITS ---
Objective Data Objective Data Vital Signs: Vital Signs Last response 3 Temperature 36.7 C 08/25/25 11:00 Temperature Source Temporal 08/25/25 11:00 Pulse Rate 99 08/25/25 11:00 Pulse Strength Normal (2+) 08/25/25 08:44 Respiratory Rate 18 08/25/25 11:00 Respiratory Effort Normal 08/25/25 11:47 Respiratory Depth Normal 08/25/25 11:47 Respiratory Pattern Normal 08/25/25 11:47 Blood Pressure 141/83 H 08/25/25 11:00 Blood Pressure Mean 102 08/25/25 11:00 Blood Pressure Source Monitor 08/25/25 11:00 Blood Pressure Position Semi-Fowlers 08/25/25 11:00 Blood Pressure Location Left Arm 08/25/25 11:00 Pulse Ox 98 08/25/25 11:00 Oxygen Delivery Method Nasal Cannula 08/25/25 11:47 Oxygen Flow Rate (L/min) 2 08/25/25 11:00 Fraction of Inspired Oxygen (FIO2) 2 08/25/25 11:47 I&O: I&O Last 24 Hours 3 08/24/25 08/25/25 08/25/25 23:59 11:59 23:59 Intake Total 770 / 770 550 / 550 Output Total 700 / 700 600 / 600 Balance 70 / 70 -50 / -50 I&O: Total Stay 3 08/24/25 09:29 thru 08/25/25 11:54 Intake Total 1320 Output Total 1300 Balance 20 Current Meds Ordered / Administered: Current meds ordered / Administered 3 Generic Name Dose Route Start Last Admin Trade Name Brennan PRN Reason Stop Dose Admin Acetaminophen 650 mg 08/24/25 16:28 Acetaminophen 325 Mg Tablet PO Q4H PRN PRN Pain 1-10 or Fever Albuterol/Ipratropium 3 ml 08/24/25 15:15 08/25/25 07:02 Ipratropium/Albuterol Sulfate 3 Ml Ampul.Neb INHALATION 3 ml Q4H.RT [facility] Administration Atorvastatin Calcium 40 mg 08/24/25 22:00 08/24/25 21:37 Atorvastatin Calcium 40 Mg Tablet PO 40 mg QHS [facility] Administration Carvedilol 25 mg 08/24/25 17:00 08/25/25 08:10 Carvedilol 25 Mg Tablet PO 25 mg BIDCM [facility] Administration Protocol Cholecalciferol 125 mcg 08/25/25 10:00 08/25/25 08:11 Cholecalciferol (Vit D3) 125 Mcg Capsule (5,000 Units) PO 125 mcg DAILY [facility] Administration Duloxetine HCl 60 mg 08/25/25 10:00 08/25/25 08:10 Duloxetine Hcl 60 Mg Capsule PO 60 mg DAILY [facility] Administration Azithromycin 500 mg/ Sodium 250 mls @ 250 mls/hr 08/24/25 16:00 08/25/25 09:18 Chloride IV Infused Q24 [facility] Infusion Lorazepam 0.5 mg 08/24/25 16:28 Lorazepam 0.5 Mg Tablet PO TID PRN ANXIETY Methylprednisolone Sodium Succinate 40 mg 08/24/25 15:30 08/25/25 08:12 Methylprednisolone Sod Succ 40 Mg/Ml Vial IV 40 mg Q8 [facility] Administration Nitroglycerin 0.4 mg 08/24/25 16:32 Nitroglycerin (Inpatient Use) 0.4 Mg Tab.Subl SL Q5M PRN CARDIAC/CHEST PAIN Oxycodone HCl 20 mg 08/24/25 22:00 08/25/25 11:07 Oxycodone Hcl Cr 10 Mg Tablet PO 20 mg BID [facility] Administration Oxycodone HCl 5 mg 08/24/25 16:28 Oxycodone 5 Mg Tablet PO Q4H PRN PRN Pain Score 6-10 or Pre PT/OT Pantoprazole Sodium 40 mg 08/24/25 22:00 08/25/25 08:10 Pantoprazole Sodium 40 Mg Tablet PO 40 mg BID I[facility] Administration Polyethylene Glycol 17 gm 08/25/25 10:00 08/25/25 08:11 Polyethylene Glycol 3350 17 Gm Packet PO 17 gm DAILY [facility] Administration Rivaroxaban 20 mg 08/24/25 17:00 08/24/25 17:52 Rivaroxaban 20 Mg Tablet PO 20 mg DINNER [facility] Administration Sacubitril/Valsartan 0.5 each 08/24/25 22:00 08/25/25 08:10 Sacubitril/Valsartan 24/26 Mg Tablet PO 0.5 each BID [facility] Administration Senna/Docusate Sodium 1 tablet 08/24/25 22:00 08/25/25 08:11 Senna/Docusate Sodium 1 Tablet PO 1 tablet BID [facility] Administration Sodium Chloride 10 - 40 ml 08/24/25 16:55 0.9% Saline Lock 10 Ml Syringe IV UD PRN SALINE FLUSH Spironolactone 25 mg 08/25/25 10:00 08/25/25 08:09 Spironolactone 25 Mg Tablet PO 25 mg DAILY [facility] Administration Protocol Sucralfate 1 gm 08/24/25 22:00 08/25/25 11:00 Sucralfate 1 Gm Tablet PO 1 gm 1HR_ACHS [facility] Administration Medical Records Data Medical Nutrition Assessment Dietitian: Malnutrition Criteria Met Start: 08/25/25 09:37 Freq: Status: Active Protocol: Document 08/25/25 09:37 [facility] (Rec: 08/25/25 09:37 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 [place] [id number] josee Consistent CHO - No Added Salt Recommendations/ d/t pmhx Changes Add 4 oz glucerna shake tid w/ meals for increased nutrition if consumed Continue to follow and monitor for changes in pt nutritional status and make additional rec as indicated Lab / Micro Data 08/25/25 05:35 08/25/25 05:35 Labs: Laboratory Results - last 24 hr 08/24/25 12:10: Magnesium 1.4 L, Troponin T Hi Sens 2 Hr 30 H 08/25/25 05:35: WBC 8.5, RBC 3.94 L, Hgb 12.2, Hct 38.0, MCV 96.4, MCH 31.0, MCHC 32.1, RDW Std Deviation 46.6 H, RDW Coeff of Sariah 13.3, Plt Count 338, MPV 10.1, Immature Gran % (Auto) 0.700, Neut % (Auto) 87.9 H, Lymph % (Auto) 9.5 L, Lawrence % (Auto) 1.7, Eos % (Auto) 0.0, Baso % (Auto) 0.2, Absolute Neuts (auto) 7.4, Absolute Lymphs (auto) 0.80 L, Nucleated RBC % 0, Sodium 144, Potassium 4.0, Chloride 104, Carbon Dioxide 27.8, Anion Gap 12, BUN 20 H, Creatinine 0.79, Estim Creat Clear Calc 66.11, Est GFR (MDRD) Non-Af 82, BUN/Creatinine Ratio 26.0 H, Glucose 146 H, Calcium 10.5 Micro: Microbiology 08/24/25 00:19 Urine, Clean Catch Urine Culture - Final Mixed Gram Positive Organisms 08/24/25 17:30 Nasal Secretion MRSA (PCR) - Final 08/24/25 16:32 Mucosa - Nasopharyngeal Respiratory Panel (PCR) - Final 08/24/25 00:19 Urine, Random Legionella Antigen - Final 08/24/25 00:19 Urine, Random Streptococcus pneumoniae Antigen (M - Final 08/24/25 10:09 Mucosa - Nose SARS-CoV-2, Influenza & RSV (PCR) - Final ABG Data ABG results: ABG 08/24/25 14:48 Specimen Type ART Sample Site L Brach pH 7.29 L Bicarbonate Actual 28.6 H Total CO2 30 Base Excess 2 O2 Saturation 95 O2 % 4.0 ABG pCO2 59.1 H ABG pO2 89 O2 Delivery Device Cannula Vent Mode Not entered Assessment and Plan . Assessment and plan: A/P: 1. Resp Failure: acute on chronic- Hypoxemic/Hypercapnic. Did not tolerate BIPAP in ED. Awake and comfortable. Now on RA 2. COPD Exac: Continue nebs and steroids. WEan steroids as tolerated. Will need 5 day burst. 3. CHF exac: acute on chronic. Systolic. BNP very elevated. CT showed GGO. Continue lasix 4. Mural Thrombus: continue DOAC 5. FEN: oral diet Will sign off Calvin Garrett MD The entirety of this encounter was done via Telemedicine Physical Exam Narrative [facility] Records Department [address] [place] [address] Consultation - Freight Handler 08/24/25 1822 MR#: [id number] Acct: [id number] Name: ECHO KERNS Rep #: [id number] : 1955 69 From: Calvin Garrett MD PCP: Dr. Sandy Barbosa MD Status: ADM IN Location: ICU ICU11-1 HPI Consult Data Date of Consult: 08/24/25 HPI Narrative Reason for Consultation: sob HPI Narrative: 69 yo wf with hx of CHFref, COPD, Chronic Hypoxemic/hypercapnic resp FAilure, Mural Thrombus on AC admitted 24 hours after d/c. During that admit pt had JOVANY from over diuresis. Placed on IVFs with normalization of Cr and Na. Pt presents one day later with increasing sob. Noted to have markedly elevated BNP. CT chest showed subtle diffuse GGO. She was mildly hypercapnic in ED and placed on BIPAP which she did not tolerate. Given one dose of lasix with excellent uop. Started on nebs and steroids for CoPd. On baseline 2L of o2. [facility] Medical History Chronic pain Kidney disease Asthma Irregular heart beat Congestive heart failure (CHF) TIA (transient ischemic attack) Wears glasses Post-menopausal Arthritis History of renal disease High cholesterol DVT (deep venous thrombosis) Easy bruising Excessive bleeding Back pain Injury of back History of ulceration Difficulty chewing Gastric reflux Shortness of breath on exertion Hoarseness Chronic cough Leg cramps History of pain when walking History of edema History of echocardiogram History of stress test Cardiology follow-up encounter History of CHF (congestive heart failure) History of irregular heartbeat Chest pain Bullous emphysema COPD with asthma Esophagitis, unspecified without bleeding Unspecified combined 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 Other chronic pain Elevated troponin Sustained SVT Depression Osteoporosis Kidney stones Smoker Myocardial infarct History of non-ST elevation myocardial infarction (NSTEMI) (09/01/21) Essential hypertension Old anterior wall myocardial infarction Ischemic cardiomyopathy Opiate dependence Anxiety and depression TIA (transient ischemic attack) Obesity (BMI 30.0-34.9) EVELYN (obstructive sleep apnea) Personal history of transient ischemic attack (TIA), and cerebral infarction without residual deficits COPD (chronic obstructive pulmonary disease) Calculus of left kidney GERD (gastroesophageal reflux disease) Hyperlipidemia Atherosclerotic heart disease of [place] coronary artery without angina pectoris Tobacco abuse Home Medications ?Medication ?Instructions ?Recorded ?Last Taken ?Type inhalational spacing device #1 ea 02/17/23 Unknown Rx (Aerochamber MV spacer) lorazepam 1 mg tablet (Ativan) 1 mg PO TID PRN anxiety 07/16/2309/27/ 5 History nitroglycerin 0.4 mg sublingual 0.4 mg buccal Q5M PRN chest pain 3 Unknown History tablet albuterol 90 mcg-budesonide 80 1 - 2 inh inhalation BID PRN 09/28/24 History mcg/actuation HFA aerosol inhaler shortness of breath (Airsupra) atorvastatin 40 mg tablet 40 mg PO QHS cholesterol 09/28/24 History cholecalciferol (vitamin D3) 125 125 mcg PO DAILY supplement 09/28/24 History mcg (5,000 unit) capsule hydrocodone-acetaminophen 5-325mg 1 tab PO BID pain 09/28/24 09/27/24 Hist ory 5mg-325mg polyethylene glycol 3350 17 17 g PO DAILY constipation 09/28/2409/08 History gram/dose oral powder promethazine 25 mg tablet 25 mg PO Q6H PRN nausea and 09/28/24 Unk nown History vomiting carvedilol 25 mg tablet 25 mg PO BID heart #120 tabs 10/04/24 Un known Rx omeprazole 40 mg capsule,delayed 40 mg PO QDAY GERD 01/13/25 Unknown Hist ory release potassium chloride 20 mEq 20 meq PO QDAY supplement 01/13/25 Unkno wn History tablet,extended release spironolactone 25 mg tablet 25 mg PO QDAY blood pressure 01/13/25 Un known History empagliflozin 10 mg tablet 10 mg PO DAILY diabetes 30 days 05/29/25 Unknown Rx (Jardiance) #30 tabs rivaroxaban 20 mg tablet (Xarelto) 20 mg PO DINNER blood thinner 30 5 Unknown Rx days #30 tabs sacubitril 24 mg-valsartan 26 mg 0.5 tab PO BID blood pressure 30 5 Unknown Rx tablet days #30 tabs acetaminophen 325 mg capsule 650 mg PO Q4H PRN fever or pain 08/21/25 Unknown History albuterol sulfate 90 mcg/actuation 2 inh inhalation Q4H PRN shortness 08/21 Unknown History aerosol inhaler (Ventolin HFA) of breath or wheezing duloxetine 60 mg capsule,delayed 60 mg PO DAILY mental health 08/21/25 Un known History release furosemide 20 mg tablet 20 mg PO DAILY diuretic 08/21/25 Unknown History ketoconazole 2 % shampoo 1 applic topical .COMPLEX dry skin 08/21 Unknown History magnesium hydroxide 400 mg/5 mL 30 ml PO DAILY PRN constipation 08/21/25 Unknown History oral suspension (Milk of Magnesia) mirtazapine 15 mg tablet 15 mg PO QHS mental health 08/21/25 Unkn own History oxycodone myristate 18 mg capsule 18 mg PO BID pain 08/21/25 Unknown Histo ry sprinkle extended release 12hr(DON'T CRUSH) (Xtampza ER) sennosides 8.6 mg-docusate sodium 1 tab-cap PO BID laxative 08/21/25 Unkno wn History 50 mg tablet (Senexon-S) sodium phosphates 19 gram-7 118 ml LA PRN PRN constipation 08/21/25 Unknown History gram/118 mL enema (Enema) sucralfate 100 mg/mL oral 1 g PO Q6H reflux 08/21/25 Unknown Histo ry suspension OXYGEN - Supplemental ([facility] Pulmonary Information 08/24/25 Unknown History INFORMATIONAL USE ONLY) Allergy/AdvReac Type Severity Reaction Status Date / Time Iodinated Contrast Media Allergy SOB Verified 08/24/25 09:37 (iodine contrast) Family History Mother Hypertension CAD (coronary artery disease) CVA (cerebral vascular accident) Myocardial infarction Grandmother Myocardial infarction Surgical History History of cholecystectomy Hx of esophagogastroduodenoscopy History of cardiac catheterization History of hysterectomy History of left heart catheterization (01/20/22) History of total hysterectomy Hx of appendectomy Social History household members: none housing: assisted living facility Smoking Status: Current some day smoker tobacco type: cigarettes alcohol intake: never substance use type: does not use ROS ROS Narrative as per HPI Objective Data Objective Data Vital Signs: Vital Signs Last response Temperature 36.3 C L 08/24/25 16:45 Temperature Source Temporal 08/24/25 16:45 Pulse Rate 112 H 08/24/25 18:00 Respiratory Rate 22 H 08/24/25 18:00 Respiratory Effort Short of Breath, Labored 08/24/25 09:38 Respiratory Depth Normal 08/24/25 09:38 Respiratory Pattern Tachypnea 08/24/25 14:26 Blood Pressure 150/78 H 08/24/25 18:00 Blood Pressure Mean 102 08/24/25 18:00 Blood Pressure Source Monitor 08/24/25 18:00 Blood Pressure Position Semi-Fowlers 08/24/25 18:00 Blood Pressure Location Left Arm 08/24/25 18:00 Pulse Ox 95 08/24/25 18:00 Oxygen Delivery Method Nasal Cannula 08/24/25 18:00 Oxygen Flow Rate (L/min) 2 08/24/25 18:00 Fraction of Inspired Oxygen (FIO2) 35 08/24/25 15:00 I&O: I&O Last 24 Hours 08/23/25 08/24/25 08/24/25 23:59 11:59 23:59 Intake Total 520 / 520 Balance 520 / 520 I&O: Total Stay 08/24/25 09:29 thru 08/24/25 18:00 Intake Total 520 Balance 520 Current Meds Ordered / Administered: Current meds ordered / Administered Generic Name Dose Route Start Last Admin Trade Name Freq PRN Reason Stop Dose Admin Acetaminophen 650 mg 08/24/25 16:28 Acetaminophen 325 Mg Tablet PO Q4H PRN PRN Pain 1-10 or Fever Albuterol/Ipratropium 3 ml 08/24/25 15:15 Ipratropium/Albuterol Sulfate 3 Ml Ampul.Neb INHALATION Q4H.RT [facility] Atorvastatin Calcium 40 mg 08/24/25 22:00 Atorvastatin Calcium 40 Mg Tablet PO QHS [facility] Carvedilol 25 mg 08/24/25 17:00 08/24/25 17:52 Carvedilol 25 Mg Tablet PO 25 mg BIDCM [facility] Administration Protocol Cholecalciferol 125 mcg 08/25/25 10:00 Cholecalciferol (Vit D3) 125 Mcg Capsule (5,000 Units) PO DAILY [facility] Duloxetine HCl 60 mg 08/25/25 10:00 Duloxetine Hcl 60 Mg Capsule PO DAILY [facility] Azithromycin 500 mg/ Sodium 250 mls @ 250 mls/hr 08/24/25 16:00 08/24/25 17:47 Chloride IV 250 mls/hr Q24 [facility] Administration Lorazepam 0.5 mg 08/24/25 16:28 Lorazepam 0.5 Mg Tablet PO TID PRN ANXIETY Methylprednisolone Sodium Succinate 40 mg 08/24/25 15:30 08/24/25 17:48 Methylprednisolone Sod Succ 40 Mg/Ml Vial IV 40 mg Q8 I[facility] Administration Nitroglycerin 0.4 mg 08/24/25 16:32 Nitroglycerin (Inpatient Use) 0.4 Mg Tab.Subl SL Q5M PRN CARDIAC/CHEST PAIN Oxycodone HCl 20 mg 08/24/25 22:00 Oxycodone Hcl Cr 10 Mg Tablet PO BID [facility] Oxycodone HCl 5 mg 08/24/25 16:28 Oxycodone 5 Mg Tablet PO Q4H PRN PRN Pain Score 6-10 or Pre PT/OT Pantoprazole Sodium 40 mg 08/24/25 22:00 Pantoprazole Sodium 40 Mg Tablet PO BID [facility] Polyethylene Glycol 17 gm 08/25/25 10:00 Polyethylene Glycol 3350 17 Gm Packet PO DAILY [facility] Rivaroxaban 20 mg 08/24/25 17:00 08/24/25 17:52 Rivaroxaban 20 Mg Tablet PO 20 mg DINNER [facility] Administration Sacubitril/Valsartan 0.5 each 08/24/25 22:00 Sacubitril/Valsartan 24/26 Mg Tablet PO BID [facility] Senna/Docusate Sodium 1 tablet 08/24/25 22:00 Senna/Docusate Sodium 1 Tablet PO BID [facility] Sodium Chloride 10 - 40 ml 08/24/25 16:55 0.9% Saline Lock 10 Ml Syringe IV UD PRN SALINE FLUSH Spironolactone 25 mg 08/25/25 10:00 Spironolactone 25 Mg Tablet PO DAILY [facility] Protocol Sucralfate 1 gm 08/24/25 22:00 Sucralfate 1 Gm Tablet PO 1HR_ACHS [facility] awake, alert pupils:= o/p: clear CV: RRR Chest: no crackles, good a/e, diminished throughout Abd: soft, nt, +bs Ext: No c/e/c Skin: no rashes Subjective Subjective On RA. Feels better
--- NOTE | 2025-08-25 15:13 | CASEMGMT ---
Social Work Phone call placed to pt son Sanju. SW explained that [facility] states they are not able to accept pt back due to functional limitations and confusion. SW suggested pt transfer to SNF for short term rehab stay with plan to return to [facility] when she is stronger. Sanju becoming very upset. Sanju adamantly refusing for pt to go to SNF, even for short term rehab. Sanju states that pt will absolutely return to her home at [facility] and [facility] has no right to deny this. SW made several attempts to explain [facility]'s concerns and level of care that they can provide. Sanju states that if pt needs additional care he will be with pt to provide needed care. Sanju not weekend receptionist to anything that this SW attempted to explain. After phone conversation ended, Sanju called this SW back and reiterated that pt will not go to SNF and will return to [facility] at time of dc. SW spoke with therapy and requested that pt be evaluated for functional status. After evaluation, therapy reports pt is still confused (which is not pt's baseline) but she was able to ambulate, get in an out of bed and complete ADLs at stand by assist with no LOB. Phone call to [facility] and spoke with nurse Rosario. AC updated Rosario regarding phone call with Sanju, Sanju's refusal for pt to go to SNF and pt's functional status with therapy. Rosario states that if pt is able to care for self and ambulate 30 ft independently, she can return to [facility]. PT to have therapy again tomorrow. AC will follow up tomorrow after therapy to confirm pt can return to [facility]. BORIS Kidd
[2025-08-25] MEDS: 0.9% Saline Lock 10 ML Syringe IV (22:12)
[2025-08-26] VITALS (7 sets, daily range): BP systolic 125–142; BP diastolic 76–89; PULSE 67–79; RESP 15–20; TEMP 36.2–37.4; O2SAT 92–97; BMI 27.5
[2025-08-26] MEDS: 0.9% Saline Lock 10 ML Syringe IV ×3 (06:38→21:05)
[2025-08-26] MEDS: oxyCODONE HCl Cr 10 MG Tablet 20 MG PO ×2 (09:37→21:04)
[2025-08-26] MEDS: SACUBITRIL/VALSARTAN 24/26 MG TABLET 0.5 EACH PO ×2 (09:39→21:04)
[2025-08-26] MEDS: Polyethylene Glycol 3350 17 GM PACKET PO (09:40)
[2025-08-26] MEDS: Cholecalciferol (Vit D3) 125 MCG CAPSULE (5,000 UNITS) PO (09:40)
[2025-08-26] MEDS: Senna/Docusate Sodium 1 Tablet PO ×2 (09:40→21:04)
[2025-08-26] MEDS: Azithromycin 500 MG in 0.9% Normal Saline (250mL Bag) 250 ML 250 MG IV (09:57)
--- NOTE | 2025-08-26 15:08 | CASEMGMT ---
Addendum entered by Marlene Jack 08/26/25 15:27: Social Work Clinical updates faxed to [facility]. BORIS Russ Original Note: Social Work SW spoke with pt nurse. Pt more oriented today and confusion is improving. Pt moving back toward baseline of A&O x3. SW reviewed pts therapy notes. Pt able to ambulate today 210 ft SBA and complete ADLs. Continued therapy is not recommended. Phone call to [facility] and spoke with nurse Kate and informed that pt is much improved and continued therapy is not recommended. Pt is able to return to [facility] and does not require skilled level of care. Per physician pt may be ready for dc on Thursday or Thursday. Ada states she is unable to say if pt can return, and she is not able to contact anyone in authority to ask if she can return tomorrow. Ada suggests if pt is ready for dc tomorrow, nurse calls [facility] day shift nurse and confirm pt can return on Thursday. Phone call to pt la [facility] and updated on above information. Plan: Return to [facility], will need to call [facility] first shift nurse to confirm she can return. Discharge Readiness Checklist entered in [facility] and transport form put on chart. BORIS Russ
--- NOTE | 2025-08-26 15:35 | PN_ITS ---
Subjective Subjective Patient seen and examined with her nurse by her bedside. She had no complaints and says she felt better. She is on 2 L of oxygen. She is still coughing occasionally. She denies any wheezing, nausea vomiting. Review of systems otherwise negative. She has remained hemodynamically stable otherwise. Objective Data Objective Data Vital Signs: Vital Signs Temp Pulse Resp BP Pulse Ox O2 Del Method O2 Flow Rate 98.3 F 72 15 137/76 H 92 Nasal Cannula 2 08/26/25 15:01 08/26/25 15:01 08/26/25 15:01 08/26/25 15:01 08/26/25 15:01 08/26/25 15:01 08/26/25 15:01 FiO2 2 08/25/25 15:23 Oxygen Flow Rate (L/min) 2 Oxygen Delivery Method Nasal Cannula Weight: 161 lb 2.526 oz Body Mass Index (BMI) 27.5 Intake & Output: Intake and Output for Last 24 Hours 08/24/25 08/25/25 08/26/25 23:59 23:59 23:59 Intake Total 770 / 770 910 / 910 990 / 990 Output Total 700 / 700 600 / 600 500 / 500 Balance 70 / 70 310 / 310 490 / 490 Medical Nutrition Assessment Dietitian: Malnutrition Criteria Met Start: 08/25/25 09:37 Freq: Status: Active Protocol: Document 08/25/25 09:37 [facility] (Rec: 08/25/25 09:37 [facility] [id number]) Nutrition Malnutrition Evidence of Yes Malnutrition Exists Malnutrition (severe Chronic ): Evidenced By Suboptimal Energy Intake (Severe),Weight Loss (Severe) Clinical Problem Chronic Disease or Condition Related Malnutrition Etiology related to functional decline and altered GI fxn d/t fernández's esophagus and stomach pain w/ food consumption Signs/Symptoms as evidenced by <75% x 1 mo and 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 Problem [place] [address] josee Consistent CHO - No Added Salt Recommendations/ d/t pmhx Changes Add 4 oz glucerna shake tid w/ meals for increased nutrition if consumed Continue to follow and monitor for changes in pt nutritional status and make additional rec as indicated Lab / Micro Data 08/25/25 05:35 08/25/25 05:35 Micro: Microbiology 08/24/25 00:19 Urine, Clean Catch Urine Culture - Final Mixed Gram Positive Organisms 08/24/25 17:30 Nasal Secretion MRSA (PCR) - Final 08/24/25 16:32 Mucosa - Nasopharyngeal Respiratory Panel (PCR) - Final 08/24/25 00:19 Urine, Random Legionella Antigen - Final 08/24/25 00:19 Urine, Random Streptococcus pneumoniae Antigen (M - Final 08/24/25 10:09 Mucosa - Nose SARS-CoV-2, Influenza & RSV (PCR) - Final Physical Exam Const alert, oriented x3 and no apparent distress General Appearance: cooperative HEENT normocephalic, head/scalp atraumatic, moist oral mucous membranes and oropharynx normal Eyes EOMs intact bilaterally Neck no lymphadenopathy and supple Lymph Lymphatic: no lymphadenopathy noted Resp Resp Narrative: moderately diminished breath sounds bilaterally, mild wheezing, no crackles. On 2L of oxygen by nasal canula Cardio regular rate, regular rhythm, S1 normal heart sound, S2 normal heart sound and no murmurs GI normal to inspection, nondistended, normoactive bowel sounds, soft to palpation and non-tender Extremity normal capillary refill, no clubbing, cyanosis or edema and no calf tenderness General Extremity: no tenderness to palpation of joints or extremities Skin General Skin Exam: no breakdown Neuro no focal motor deficits Motor Exam: strength 5/5 throughout Psych thought process normal and cooperative Appearance: appropriate Assessment & Plan Assessment/Plan (1) Acute on chronic respiratory failure with hypoxia and hypercapnia: (2) COPD (chronic obstructive pulmonary disease): PLAN: Plan #Acute on chronic hypoxic and hypercapnic respiratory failure due to COPD exacerbation * Initially admitted to ICU. Chest CT showed mild interstitial edema and trace left pleural effusion but no PE. * Was originally on BiPAP but weaned off of BiPAP and now on 2 L of oxygen. Respiratory panel was negative. * On IV Solu-Medrol. Also on IV azithromycin. Titrate oxygen to maintain saturation above 90%. #Heart failure with reduced ejection fraction * In acute exacerbation. Currently on IV Lasix twice daily. Has known EF of 25%. proBNP was 15,500. Monitor intake and output. #Acute encephalopathy: Most likely due to acute on chronic respiratory failure. Resolved. #JOVANY: Resolved #History of left ventricular mural thrombus: On Xarelto #Anxiety and depression: Stable #Chronic pain syndrome: Follows with Dr Forrest. PT/OT on board. #Hypertension: On Lasix and IV hydralazine as needed #Dyslipidemia: On statin #GERD: On PPI DVT prophylaxis: Already on Xarelto Disposition: For likely DC tomorrow. Charges/Coding Visit Charges Inpatient E&M: 81056 Subs Hosp L2
[2025-08-27 03:12] VITALS: BP 115/62; PULSE 67; RESP 16; TEMP 36.6; O2SAT 96
[2025-08-27 04:40] VITALS: BMI 27.8
[2025-08-27] MEDS: 0.9% Saline Lock 10 ML Syringe IV (05:35)
[2025-08-27 06:58] VITALS: PULSE 72; RESP 16; O2SAT 96
[2025-08-27 07:03] LABS: Hematocrit 37.2 % (37-47); Hemoglobin 11.7 g/dL (12.0-15.0); Immature Granulocytes Count 0.070 X10^3/uL (0.0-0.0); Mean Corp Hgb Conc 31.5 g/dL (32-36); Mean Corpuscular Volume 98.7 fL (81-99); Mean Platelet Vol. 10.1 fl (6.2-12.0); NRBC Flagged by Analyzer 0 % (0-5); Platelet Count 305 K/mm3 (150-450); RBC Distribution Width CV 13.6 % (11.6-14.6); RBC Distribution Width SD 49.2 fl (35.1-43.9); Red Blood Count 3.77 M/mm3 (4.2-5.4); White Blood Count 10.5 K/mm3 (4.4-11.0)
[2025-08-27 07:18] LABS: Anion Gap 8 (5-15); BUN 30 mg/dL (4-19); BUN/Creat Ratio 37.8 RATIO (10-20); Calcium,Total 10.2 mg/dL (7.6-11.0); Carbon Dioxide 29.6 mmol/L (21.0-32.0); Chloride 103 mmol/L (98-108); Estimated Creatinine Clearance 66.28 ml/min (50-250); Glucose 167 mg/dL (70-99); Magnesium 2.0 mg/dL (1.5-2.2); Potassium 4.5 mmol/L (3.3-5.1)
[2025-08-27 08:34] VITALS: BP 146/85; PULSE 73; RESP 15; TEMP 36.8; O2SAT 94
[2025-08-27] MEDS: oxyCODONE HCl Cr 10 MG Tablet 20 MG PO (08:36)
[2025-08-27] MEDS: Senna/Docusate Sodium 1 Tablet PO (08:37)
[2025-08-27] MEDS: SACUBITRIL/VALSARTAN 24/26 MG TABLET 0.5 EACH PO (08:38)
[2025-08-27] MEDS: Cholecalciferol (Vit D3) 125 MCG CAPSULE (5,000 UNITS) PO (08:38)
[2025-08-27] MEDS: Polyethylene Glycol 3350 17 GM PACKET PO (08:39)
[2025-08-27] MEDS: Azithromycin 500 MG in 0.9% Normal Saline (250mL Bag) 250 ML 250 MG IV (09:07)
--- NOTE | 2025-08-27 09:14 | NURSING ---
Phoned [facility] regarding patient returning today. States patient may return.
[2025-08-27 11:32] VITALS: PULSE 60; RESP 16
[2025-08-27 12:42] VITALS: O2SAT 92; O2SAT 95
--- NOTE | 2025-08-27 13:11 | PCA ---
tansfer to extended care/med list not sent to [facility] due to pt going back to [place]
[2025-08-27 13:52] VITALS: BP 137/91; PULSE 65; RESP 14; TEMP 36.6; O2SAT 95
--- NOTE | 2025-08-27 13:54 | PCM.DC ---
Discharge Instructions DC O2, CPAP, BIPAP needs Home O2 Discharge instructions: Yes Type of respiratory needs?: Oxygen Oxygen frequency: Continuous Continuous oxygen liters per minute: 2 Dressing / Incision Call your doctor if you observe: Fever of 101 or Higher, Shortness of breath, Dizziness, Swelling in the ankles, Chest pain and Increased palpitations (irregular heartbeat) Follow Up Care Test Results: Test results from this visit will be discussed in further detail at your follow-up appointment, if applicable. Discharge Plan Admission Admit Date/Time: 08/24/25 14:28 Primary Reason for Your Visit: COPD exacerbation Attending Provider: Evelyn Martines Primary Care Provider: Sandy Barbosa Consulting Providers: Dave Rodriguez; Jose Lucas; Brooks Crespo; Je Torres; Jones Fuentes; Ana Cristina Lopez; Boaz Krueger; Eze Suresh; Franky Montesinos; Rosemarie Jackson; Calvin Garrett; Gentry Vang; Marisa Carvalho; Braden Gaming; Harinder Oneal; Ross Flowers; Michelle Mcqueen; Gwen Mayberry; Shauna Hernandez; Grecia Cummings; Treva Ragsdael; Shamir Mesa; Kalina Tripathi; Mary Contreras; Radha Aguiar; Jessica De Leon; Kalina Sal; Jorgito Greene; Laci Lu; Francisco J pSencer; Rigo Izquierdo; Chandana Sears; Baldemar Prieto; Sebastian Lantigua; Kavin Palma; Brii Wood; Elisabeth Allison; Royce Alvarez; Tamir Forman; Casimiro Farnsworth; Adriane Goddard; Manuel Carranza; Regan Russo Instructions Patient Instructions: COPD Meds Discharge Orders/Prescriptions Prescriptions: New furosemide [Lasix] 40 mg tablet 40 mg PO DAILY Qty: 30 2RF prednisone 20 mg tablet 40 mg PO DAILY Qty: 10 0RF acetaminophen 325 mg Tablet 650 mg PO Q4H PRN PRN (Reason: Pain 1-10 Or Fever) Qty: 120 1RF Continued (DME) Aerochamber MV Spacer See Rx Instructions .ROUTE .MEDSUPPLY Qty: 1 0RF Rx Instructions: As directed lorazepam [Ativan] 1 mg tablet 1 mg PO TID PRN (Reason: anxiety) hydrocodone-acetaminophen 5-325 mg tablet 1 tab PO BID polyethylene glycol 3350 17 gram/dose powder 17 g PO DAILY OXYGEN - Supplemental ([facility] INFORMATIONAL USE ONLY) Patient Comments: DME: [employer] per CM notes, pt wears 2 lpm NC continuously atorvastatin 40 mg tablet 40 mg PO QHS Qty: 30 1RF carvedilol 25 mg tablet 25 mg PO BID Qty: 60 1RF Rx Instructions: must administer with a meal/food sennosides-docusate sodium [Senexon-S] 8.6-50 mg tablet 1 tab-cap PO BID Qty: 30 0RF omeprazole 40 mg capsule,delayed release(DR/EC) 40 mg PO QDAY Qty: 60 1RF spironolactone 25 mg tablet 25 mg PO QDAY Qty: 30 1RF magnesium hydroxide [Milk of Magnesia] 400 mg/5 mL suspension 30 ml PO DAILY PRN (Reason: constipation) Qty: 1 1RF promethazine 25 mg tablet 25 mg PO Q6H PRN (Reason: nausea and vomiting) Qty: 30 0RF nitroglycerin 0.4 mg tablet, sublingual 0.4 mg buccal Q5M PRN (Reason: chest pain) Qty: 30 1RF albuterol sulfate [Ventolin HFA] 90 mcg/actuation HFA aerosol inhaler 2 inh inhalation Q4H PRN (Reason: shortness of breath or wheezing) Qty: 1 1RF cholecalciferol (vitamin D3) 125 mcg (5,000 unit) capsule 125 mcg PO DAILY Qty: 30 1RF Xarelto 20 mg Tablet 20 mg PO DINNER 30 Days Qty: 30 1RF potassium chloride 20 mEq tablet extended release 20 meq PO QDAY Qty: 30 1RF Jardiance 10 mg Tablet 10 mg PO DAILY 30 Days Qty: 30 1RF sacubitril-valsartan 24-26 mg Tablet 0.5 tab PO BID 30 Days Qty: 30 1RF Airsupra 90-80 mcg/actuation HFA aerosol inhaler 1 - 2 inh INHALATION BID PRN (Reason: shortness of breath) Qty: 1 0RF mirtazapine 15 mg tablet 15 mg PO QHS Patient Comments: [NO ORIGINAL SIG] duloxetine 60 mg capsule,delayed release(DR/EC) 60 mg PO DAILY sucralfate 100 mg/mL suspension 1 g PO Q6H Patient Comments: [NO ORIGINAL SIG] Xtampza ER 18 mg cap,sprinkl,ER12hr(DONT CRUSH) 18 mg PO BID Rx Instructions: must administer with a meal/food Enema 19-7 gram/118 mL enema 118 ml ME PRN PRN (Reason: constipation) ketoconazole 2 % shampoo 1 applic topical .COMPLEX Rx Instructions: 1 applic topically 3XW; Discontinued furosemide 20 mg tablet 20 mg PO DAILY Patient Comments: [NO ORIGINAL SIG] acetaminophen 325 mg capsule 650 mg PO Q4H PRN (Reason: fever or pain) Referrals / Follow Up: Sandy Barbosa MD [Primary Care Provider, Internal Medicine] - Within 1 Week Disposition Disposition (needs filled in before D/C Order can be placed): Assisted Living
--- NOTE | 2025-08-27 13:55 | PCM.DC.SUM ---
Providers Date of Admission: 08/24/25 Date of Discharge: 08/27/25 Primary Care Physician: Dr. Sandy Barbosa MD Consultations 08/24/25 16:28 Consult: International Coordinator / Pulmonary Medicine Routine Consulting Provider: Intensivists/Pulmonary Med Reason for Consult: Acute on chronic combined respiratory failure EMERGENT Consult: No MD Notified: Yes Date Notified: 08/24/25 Time Notified: 15:42 Method of Notification: Answering Service Reason For Visit: ACUTE ON CHR RESP FAILURE Diagnosis Discharge Diagnosis (1) Acute on chronic respiratory failure with hypoxia and hypercapnia: Status: Chronic Code(s): J96.21 - Acute and chronic respiratory failure with hypoxia; J96.22 - Acute and chronic respiratory failure with hypercapnia (2) COPD (chronic obstructive pulmonary disease): Status: Chronic Code(s): J44.9 - Chronic obstructive pulmonary disease, unspecified Plan #Acute on chronic hypoxic and hypercapnic respiratory failure due to COPD exacerbation Initially admitted to ICU. Chest CT showed mild interstitial edema and trace left pleural effusion but no PE. Was originally on BiPAP but weaned off of BiPAP and now on 2 L of oxygen. Respiratory panel was negative. On IV Solu-Medrol. Also on IV azithromycin. Titrate oxygen to maintain saturation above 90%. #Heart failure with reduced ejection fraction In acute exacerbation. Currently on IV Lasix twice daily. Has known EF of 25%. proBNP was 15,500. Monitor intake and output. #Acute encephalopathy: Most likely due to acute on chronic respiratory failure. Resolved. #JOVANY: Resolved #History of left ventricular mural thrombus: On Xarelto #Anxiety and depression: Stable #Chronic pain syndrome: Follows with Dr Forrest. PT/OT on board. #Hypertension: On Lasix and IV hydralazine as needed #Dyslipidemia: On statin #GERD: On PPI DVT prophylaxis: Already on Xarelto Disposition: For likely DC tomorrow. Medications at Discharge Home Medications inhalational spacing device (Aerochamber MV spacer) #1 ea 02/17/23 lorazepam 1 mg tablet (Ativan) 1 mg PO TID PRN anxiety 07/16/23 hydrocodone-acetaminophen 5-325mg 5mg-325mg 1 tab PO BID pain 09/28/24 polyethylene glycol 3350 17 gram/dose oral powder 17 g PO DAILY constipation 09/28/24 duloxetine 60 mg capsule,delayed release 60 mg PO DAILY mental health 08/21/25 ketoconazole 2 % shampoo 1 applic topical .COMPLEX dry skin 08/21/25 mirtazapine 15 mg tablet 15 mg PO QHS mental health 08/21/25 oxycodone myristate 18 mg capsule sprinkle extended release 12hr(DON'T CRUSH) (Xtampza ER) 18 mg PO BID pain 08/21/25 sodium phosphates 19 gram-7 gram/118 mL enema (Enema) 118 ml [place] PRN PRN constipation 08/21/25 sucralfate 100 mg/mL oral suspension 1 g PO Q6H reflux 08/21/25 OXYGEN - Supplemental ([facility] INFORMATIONAL USE ONLY) Pulmonary Information 08/24/25 acetaminophen 325 mg tablet 650 mg (2 x 325 mg) PO Q4H PRN PRN Pain 1-10 Or Fever #120 tabs 08/27/25 albuterol 90 mcg-budesonide 80 mcg/actuation HFA aerosol inhaler (Airsupra) 1 - 2 inh inhalation BID PRN shortness of breath #1 inh 08/27/25 albuterol sulfate 90 mcg/actuation aerosol inhaler (Ventolin HFA) 2 inh inhalation Q4H PRN shortness of breath or wheezing #1 inh 08/27/25 atorvastatin 40 mg tablet 40 mg PO QHS cholesterol #30 tabs 08/27/25 carvedilol 25 mg tablet 25 mg PO BID heart #60 tabs 08/27/25 cholecalciferol (vitamin D3) 125 mcg (5,000 unit) capsule 125 mcg PO DAILY supplement #30 caps 08/27/25 empagliflozin 10 mg tablet (Jardiance) 10 mg PO DAILY diabetes 30 days #30 tabs 08/27/25 furosemide 40 mg tablet (Lasix) 40 mg PO BID #60 tabs 08/27/25 magnesium hydroxide 400 mg/5 mL oral suspension (Milk of Magnesia) 30 ml PO DAILY PRN constipation #1 BOTTLE 08/27/25 nitroglycerin 0.4 mg sublingual tablet 0.4 mg buccal Q5M PRN chest pain #30 tabs 08/27/25 omeprazole 40 mg capsule,delayed release 40 mg PO QDAY GERD #60 caps 08/27/25 potassium chloride 20 mEq tablet,extended release (K-Tab) 20 meq PO BID #60 tabs 08/27/25 prednisone 20 mg tablet 40 mg (2 x 20 mg) PO DAILY 5 days #10 tabs 08/27/25 promethazine 25 mg tablet 25 mg PO Q6H PRN nausea and vomiting #30 tabs 08/27/25 rivaroxaban 20 mg tablet (Xarelto) 20 mg PO DINNER blood thinner 30 days #30 tabs 08/27/25 sacubitril 24 mg-valsartan 26 mg tablet 0.5 tab PO BID blood pressure 30 days #30 tabs 08/27/25 sennosides 8.6 mg-docusate sodium 50 mg tablet (Senexon-S) 1 tab-cap PO BID laxative #30 tabs 08/27/25 spironolactone 25 mg tablet 25 mg PO QDAY blood pressure #30 tabs 08/27/25 Hospital Course Operations None Procedures None Summary of Care Provided Minutes Spent on Discharge: 42 Hospital Course: Patient is a 69-year-old female with past medical history as outlined was admitted to the ED on 08/24/2025 with complaint of shortness of breath for 3 days prior to admission. She had been discharged yesterday prior to admission after being managed for heart failure with reduced ejection fraction. She went home but says she subsequently felt much more short of breath so she decided to come into the ED. She also admitted to some chest tightness. Chest x-ray showed no acute cardiopulmonary pathology. proBNP was markedly elevated at 15,000. She was admitted and managed for acute hypoxic respiratory failure due to COPD exacerbation and acute heart failure with reduced action fraction. She was admitted to the ICU initially and critical care was consulted. She was diuresed with IV Lasix and placed on IV Solu-Medrol also. Also placed on breathing treatment with bronchodilators. Her shortness of breath gradually improved and she felt much better. She was transferred to the floor where she remained on her baseline 2 L of oxygen and did well. She was discharged home on 08/27/2025 on her baseline 2 L of oxygen. She had walking pulse ox which showed that she did not require more than the 2 L of oxygen with exertion. She was discharged on PO lasix 40mg bid with potassium supplementation and po prednisone 40mg daily x 5 days. She is to follow up with her PCP within 1-2 weeks. Patient seen and examined prior to discharge. She had no active complaints and had an uneventful night. Review of systems otherwise negative. Labs and vitals reviewed. Home medication reviewed and reconciled. Physical Exam Const alert, oriented x3 and no apparent distress General Appearance: cooperative and comfortable HEENT normocephalic, head/scalp atraumatic, hearing grossly normal bilaterally, moist oral mucous membranes and oropharynx normal Mouth: oral and palatal mucosa normal Eyes EOMs intact bilaterally Neck no lymphadenopathy and supple Lymph Lymphatic: no lymphadenopathy noted Resp Resp Narrative: moderately diminished breath sounds bilaterally, no wheezes or crackles. On 2L of oxygen by nasal canula Cardio regular rate, regular rhythm, S1 normal heart sound, S2 normal heart sound and no murmurs GI normal to inspection, nondistended, normoactive bowel sounds, soft to palpation and non-tender Extremity normal to inspection, full ROM, normal capillary refill, no clubbing, cyanosis or edema and no calf tenderness General Extremity: no tenderness to palpation of joints or extremities Skin no rashes or lesions noted General Skin Exam: no breakdown Neuro oriented x3, moves all extremities and no focal motor deficits Sensorium / Orientation: awake Motor Exam: strength 5/5 throughout Psych thought process normal and cooperative Appearance: appropriate Medical Records Data Medical Nutrition Assessment Dietitian: Malnutrition Criteria Met Start: 08/25/25 09:37 Freq: Status: Active Protocol: Document 08/25/25 09:37 YADIRA (Rec: 08/25/25 09:37 [id number]) Nutrition Malnutrition Evidence of Yes Malnutrition Exists Malnutrition (severe Chronic ): Evidenced By Suboptimal Energy Intake (Severe),Weight Loss (Severe) Clinical Problem Chronic Disease or Condition Related Malnutrition Etiology related to functional decline and altered GI fxn d/t fernández's esophagus and stomach pain w/ food consumption Signs/Symptoms as evidenced by <75% x 1 mo and decreased 7.5% unplanned wt loss x 3 months travel pta. Status Active Problem [place] [address] josee Consistent CHO - No Added Salt Recommendations/ d/t pmhx Changes Add 4 oz glucerna shake tid w/ meals for increased nutrition if consumed Continue to follow and monitor for changes in pt nutritional status and make additional rec as indicated Weight / BMI Weight Weight: 162 lb 14.746 oz Body Mass Index (BMI) 27.8 ABG / Lab / Microbiology Data 08/27/25 06:33 08/27/25 06:33 Laboratory: Laboratory Results - last 24 hr 08/27/25 06:33: WBC 10.5, RBC 3.77 L, Hgb 11.7 L, Hct 37.2, MCV 98.7, MCH 31.0, MCHC 31.5 L, RDW Std Deviation 49.2 H, RDW Coeff of Sariah 13.6, Plt Count 305, MPV 10.1, Immature Gran % (Auto) 0.700, Neut % (Auto) 90.4 H, Lymph % (Auto) 6.1 L, Atkinson % (Auto) 2.7, Eos % (Auto) 0.0, Baso % (Auto) 0.1, Absolute Neuts (auto) 9.5 H, Absolute Lymphs (auto) 0.64 L, Nucleated RBC % 0, Sodium 140, Potassium 4.5, Chloride 103, Carbon Dioxide 29.6, Anion Gap 8, BUN 30 H, Creatinine 0.80, Estim Creat Clear Calc 66.28, Est GFR (MDRD) Non-Af 80, BUN/Creatinine Ratio 37.8 H, Glucose 167 H, Calcium 10.2, Magnesium 2.0 Microbiology: Microbiology 08/24/25 00:19 Urine, Clean Catch Urine Culture - Final Mixed Gram Positive Organisms 08/24/25 17:30 Nasal Secretion MRSA (PCR) - Final 08/24/25 16:32 Mucosa - Nasopharyngeal Respiratory Panel (PCR) - Final 08/24/25 00:19 Urine, Random Legionella Antigen - Final 08/24/25 00:19 Urine, Random Streptococcus pneumoniae Antigen (M - Final 08/24/25 10:09 Mucosa - Nose SARS-CoV-2, Influenza & RSV (PCR) - Final D/C Instructions Discharge Activity: Return to Normal Activity Weight Bearing Status: Weight bearing as tolerated Call your doctor if you observe: Fever of 101 or Higher, Shortness of breath, Dizziness, Swelling in the ankles, Chest pain and Increased palpitations (irregular heartbeat) DC O2, CPAP, BIPAP Needs Home O2 Discharge instructions: Yes Type of respiratory needs?: Oxygen Oxygen frequency: Continuous Continuous oxygen liters per minute: 2 DC home with Oxygen: Yes Home O2 MD Review: I have reviewed the oxygen testing, and the patient qualifies for home oxygen equipment and portability. The patient is mobile in the home and the community. Patient's Goals Of Care - F/U Goals Reviewed Goals of care reviewed with patient: Yes - No change Meaningful Use Info Meaningful Use Meaningful Use Diagnoses (Choose all that apply): None applicable Discharge Plan Admission Admit Date/Time: 08/24/25 14:28 Primary Reason for Your Visit: COPD exacerbation Attending Provider: Evelyn Martines Primary Care Provider: Sandy Barbosa Consulting Providers: Dave Rodriguez; Jose Lucas; Brooks Crespo; Je Torres; Jones Fuentes; Ana Cristina Lopez; Boaz Krueger; Eze Suresh; Franky Montesinos; Rosemarie Jackson; Calvin Garrett; Gentry Vang; Marisa Carvalho; Braden Gaming; Harinder Oneal; Ross Flowers; Michelle Mcqueen; Gwen Mayberry; Shauna Hernandez; Grecia Cummings; Treva Ragsdale; Shamir Mesa; Kalina Tripathi; Mary Contreras; Radha Aguiar; Jessica De Leon; Kalina Sal; Jorgito Greene; Laci Lu; Francisco J Spencer; Rigo Izquierdo; Chandana Sears; Baldemar Prieto; Sebastian Lantigua; Kavin Palma; Brii Wood; Elisabeth Allison; Royce Alvarez; Tamir Forman; Casimiro Farnsworth; Adriane Goddard; Manuel Carranza; Regan Russo Instructions Patient Instructions: COPD Meds Discharge Orders/Prescriptions Prescriptions: New acetaminophen 325 mg Tablet 650 mg PO Q4H PRN PRN (Reason: Pain 1-10 Or Fever) Qty: 120 1RF furosemide [Lasix] 40 mg tablet 40 mg PO BID Qty: 60 1RF potassium chloride [K-Tab] 20 mEq tablet extended release 20 meq PO BID Qty: 60 1RF prednisone 20 mg tablet 40 mg PO DAILY 5 Days Qty: 10 0RF Continued (DME) Aerochamber MV Spacer See Rx Instructions .ROUTE .MEDSUPPLY Qty: 1 0RF Rx Instructions: As directed lorazepam [Ativan] 1 mg tablet 1 mg PO TID PRN (Reason: anxiety) hydrocodone-acetaminophen 5-325 mg tablet 1 tab PO BID polyethylene glycol 3350 17 gram/dose powder 17 g PO DAILY OXYGEN - Supplemental ([facility] INFORMATIONAL USE ONLY) Patient Comments: DME: [employer] per CM notes, pt wears 2 lpm NC continuously atorvastatin 40 mg tablet 40 mg PO QHS Qty: 30 1RF carvedilol 25 mg tablet 25 mg PO BID Qty: 60 1RF Rx Instructions: must administer with a meal/food sennosides-docusate sodium [Senexon-S] 8.6-50 mg tablet 1 tab-cap PO BID Qty: 30 0RF omeprazole 40 mg capsule,delayed release(DR/EC) 40 mg PO QDAY Qty: 60 1RF spironolactone 25 mg tablet 25 mg PO QDAY Qty: 30 1RF magnesium hydroxide [Milk of Magnesia] 400 mg/5 mL suspension 30 ml PO DAILY PRN (Reason: constipation) Qty: 1 1RF promethazine 25 mg tablet 25 mg PO Q6H PRN (Reason: nausea and vomiting) Qty: 30 0RF nitroglycerin 0.4 mg tablet, sublingual 0.4 mg buccal Q5M PRN (Reason: chest pain) Qty: 30 1RF albuterol sulfate [Ventolin HFA] 90 mcg/actuation HFA aerosol inhaler 2 inh inhalation Q4H PRN (Reason: shortness of breath or wheezing) Qty: 1 1RF cholecalciferol (vitamin D3) 125 mcg (5,000 unit) capsule 125 mcg PO DAILY Qty: 30 1RF Xarelto 20 mg Tablet 20 mg PO DINNER 30 Days Qty: 30 1RF Jardiance 10 mg Tablet 10 mg PO DAILY 30 Days Qty: 30 1RF sacubitril-valsartan 24-26 mg Tablet 0.5 tab PO BID 30 Days Qty: 30 1RF Airsupra 90-80 mcg/actuation HFA aerosol inhaler 1 - 2 inh INHALATION BID PRN (Reason: shortness of breath) Qty: 1 0RF mirtazapine 15 mg tablet 15 mg PO QHS Patient Comments: [NO ORIGINAL SIG] duloxetine 60 mg capsule,delayed release(DR/EC) 60 mg PO DAILY sucralfate 100 mg/mL suspension 1 g PO Q6H Patient Comments: [NO ORIGINAL SIG] Xtampza ER 18 mg cap,sprinkl,ER12hr(DONT CRUSH) 18 mg PO BID Rx Instructions: must administer with a meal/food Enema 19-7 gram/118 mL enema 118 ml [place] PRN PRN (Reason: constipation) ketoconazole 2 % shampoo 1 applic topical .COMPLEX Rx Instructions: 1 applic topically 3XW; Discontinued furosemide 20 mg tablet 20 mg PO DAILY Patient Comments: [NO ORIGINAL SIG] acetaminophen 325 mg capsule 650 mg PO Q4H PRN (Reason: fever or pain) Referrals / Follow Up: Sandy Barbosa MD [Primary Care Provider, Internal Medicine] - Within 1 Week Disposition Disposition (needs filled in before D/C Order can be placed): Assisted Living Charges/Coding Visit Charges Inpatient E&M: 51216 Disch Hosp >30min
--- NOTE | 2025-08-27 14:34 | NURSING ---
called [facility] report given
== END 2025-08-27 14:50 | disposition home or self-care (01) | DRG 189 ==
LOC: ED 14:07 → ICU 15:12 → PCU 08-25 17:53
PROVIDERS: Admitting Provider Internal Medicine; Emergency Provider Surgery; PCP Internal Medicine; Visit Provider Student in an Organized Health Care Education/Training Program
DX: J96.21 Acute and chronic respiratory failure with hypoxia (principal); G93.41 Metabolic encephalopathy; I50.23 Acute on chronic systolic (congestive) heart failure; J44.1 Chronic obstructive pulmonary disease with (acute) exacerbation; Z66 Do not resuscitate; I11.0 Hypertensive heart disease with heart failure; F32.A Depression, unspecified; J96.22 Acute and chronic respiratory failure with hypercapnia; E78.00 Pure hypercholesterolemia, unspecified; I25.10 Atherosclerotic heart disease of native coronary artery without angina pectoris; F41.9 Anxiety disorder, unspecified; F17.210 Nicotine dependence, cigarettes, uncomplicated; K21.9 Gastro-esophageal reflux disease without esophagitis; I25.2 Old myocardial infarction; I51.3 Intracardiac thrombosis, not elsewhere classified; G89.4 Chronic pain syndrome; Z99.81 Dependence on supplemental oxygen; Z79.01 Long term (current) use of anticoagulants; Z79.891 Long term (current) use of opiate analgesic; Z79.899 Other long term (current) drug therapy; Z86.718 Personal history of other venous thrombosis and embolism; Z86.73 Personal history of transient ischemic attack (TIA), and cerebral infarction without residual deficits
CPT/HCPCS: 36415; 36600; 71275; 80048; 80076; 80307; 81001; 82077; 82140; 82803; 83690; 83735; 83880; 84145; 84443; 84484; 85025; 85379; 87077; 87086; 87088; 87449; 87631; 87633; 87641; 93005; 94002; 94640; 94668; 94762; 97116; 97162; 97166; 97530; 97535; 97802; 99285; P9612; Q9967; A4216; J1938